=== PATIENT | female | born 1940 | race Caucasian/White ===

== ENCOUNTER 2015-12-26 09:46 | Outpatient (RCR) | payer MEDICARE ==
[~2015-12-26 09:46] MED LIST: ACDPT PO; BISO1TAB6 PO; CANA100T PO; CEFU250T PO; CHOL2000 PO; EZET10TA5 PO; GABA-488 PO; GLIM2TAB PO; LEVO50TA6 PO; MTF500T PO; OMEG-12 PO
--- OUTSIDE RECORDS SUMMARY | 2015-12-26 09:50 | XMS REPORT | Continuity of Care Document ---
Author Author [facility] Organization [facility] Address Unknown Phone Unavailable Care Team Providers Care Sheet Layer Name Role Phone KURTIS DIEGO MD PCP Insurance Providers Payer Name Policy Number Subscriber Name Relationship Wps Medicare [id number] Cameron Whitaker 18 Self / Same As Patient [facility] [id number] Cameron Whitaker 18 Self / Same As Patient Advance Directives Directive Response Recorded Date/Time Advance Directives No 07/19/15 8:10am Health Care Power of [employer] Platemaker No 07/19/15 8:10am Organ Donor No 07/19/15 8:10am Resuscitation Status Full Code 07/19/15 8:10am Problems Active Problems Medical Problem Onset Date Status Sharp headache Unknown Acute Urinary tract infection Unknown Acute Medications Current Home Medications Medication Dose Units Route Directions Days/Qty Instructions Start Date Metformin Hcl (Glucophage) 500 Mg 1 Each Oral Three Times A Day 28/02 Glimepiride 2 Mg 4 Mg Oral Daily 12/30/11 Griffin-3/Dha/Epa/Fish Oil 1 Each 2 Each Oral Week 12/30/11 Cholecalciferol 2,000 Unit 2,000 Unit Oral Weekly 12/30/11 Acetaminophen/Diphenhydramine 1 Ea 1 Ea Oral Bedtime 12/30/11 Canagliflozin 100 Mg 100 Mg Oral Daily 03/23/15 Gabapentin 300 Mg 300 Mg Oral Twice A Day 03/23/15 Levothyroxine Sodium 50 Mcg 50 Mcg Oral as needed for Dizziness 11/28 Cefuroxime Axetil 250 Mg 250 Mg Oral Twice A Day 10 03/23/15 Past Home Medications Medication Directions Ordered Status Ezetimibe 10 Mg Tablet, 10 Mg Oral Daily@0900 12/30/11 Discontinued Bisoprolol Fumarate/Hctz 1 Each Tablet, 1 Each Oral Daily 12/30/11 Discontinued Social History Social History Problem Response Recorded Date/Time Alcohol Use Denies Use 03/23/2015 12:25pm Recreational Drug Use No 03/23/2015 12:25pm Recent Foreign Travel No 07/19/2015 8:11am Hospital Discharge Instructions No hospital discharge instructions. Plan of Care Discharge Date 07/19/15 8:58am Instructions/Education Provided DR. BECK-POST EPIDURAL INST Prescriptions See Medication Section Functional Status No functional status results. Allergies, Adverse Reactions, Alerts No known allergies. Immunizations Name Given Type Date of Influenza Vaccine 02/12/15 Historical Vital Signs Acute Vital Signs Vital Response Date/Time Temperature (Fahrenheit) 95.9 degrees F (97.6 - 99.5) 07/19/2015 8:15am Temperature (Calculated Celsius) 35.55646 degrees C (36.4 - 37.5) 07/19/2015 8:15am Temperature Source Tympanic 07/19/2015 8:15am Pulse Rate (adult) 65 bpm (60 - 90) 07/19/2015 8:56am Respiratory Rate 14 bpm (12 - 24) 07/19/2015 8:56am O2 Sat by Pulse Oximetry 98 % (88 - 100) 07/19/2015 8:56am Blood Pressure 165/82 mm Hg 07/19/2015 8:56am Blood Pressure Mean 101 mm Hg 07/19/2015 8:15am Pain Pain Intensity 3 07/19/2015 8:56am Height (Feet) 5 feet 07/19/2015 8:11am Height (Inches) 3.00 inches 07/19/2015 8:11am Height (Calculated Centimeters) 160.039605 cm 07/19/2015 8:11am Weight (Pounds) 174 pounds 07/19/2015 8:11am Weight (Ounces) 0.0 oz 07/19/2015 8:11am Weight (Calculated Grams) 01207.073 gm 07/19/2015 8:11am Weight (Calculated Kilograms) 78.295894 kilograms 07/19/2015 8:11am Calculated BMI 30.8 07/19/2015 8:11am Results No known relevant diagnostic tests, laboratory data and/or discharge summary. Procedures No known history of procedures. Encounters Encounter Location Arrival/Admit Date Discharge/Depart Date Attending Provider Departed Clinic [facility] 07/19/15 7:43am 07/19/15 8: 58am LAITH BECK MD Departed Clinic [facility] 07/15/15 11:45am 07/15/15 1: 42pm LAITH BECK MD
== END 2016-03-25 | disposition home or self-care (01) ==
LOC: DSME 09:46
PROVIDERS: ATTEND Nurse Practitioner Family
DX: E11.9 Type 2 diabetes mellitus without complications (principal)

== ENCOUNTER → 2016-08-03 | Outpatient (CLI) | payer MEDICARE ==
[~2016-08-03] VITALS: Ht 160 cm; Wt 81.6 kg
[~2016-08-03] MED LIST changes: +BUPIVACAINE 0.25% 30 ML (SENSORCAINE) VIAL ONE; +TRIAMCINOLONE ACET (KENALOG-40) 40 MG/ML 1 ML VIAL ONE
[2016-08-03 14:28] VITALS: BP 151/105
[2016-08-03 15:13] VITALS: BP 162/83
--- NOTE | 2016-08-03 16:04 | Pain Medicine-Procedure ---
Procedure Pre-Op/Post-Op Diagnosis Diagnosis: disc disorder with radiculopathy, lumbar Indications for Operation Low back pain Attending Surgeon Debbi Procedure Date of Service: August 03, 2016 Procedure: Lumbar Epidural Steroid Injection at the L5-S1 level under Fluoroscopic Guidance Procedure: Patient was identified in the holding area. After risks, benefits, and alternatives were discussed with the patient, informed consent was obtained. Patient was brought to the fluoroscopy suite and placed prone on the procedure room table. A time out was performed. Vital signs were monitored throughout the procedure. The patients low back was prepped and draped in the usual sterile fashion. The patients skin was anesthetized using 2% Lidocaine. A Tuohy needle was inserted and advanced to the L5-S1 epidural space under fluoroscopic guidance using the loss of resistance technique and intermittent projection of fluoroscopy. There was no paresthesia with needle placement. The needle position was confirmed in both the AP and lateral view. After negative aspiration 2ml of contrast was injected under live fluoroscopy which showed good spread of the contrast in the epidural space at the appropriate level, there was no intravascular or subarachnoid spread. Again, after negative aspiration for heme or CSF, 2 ml of 0.25% Bupivicaine, 2ml of preservative free normal saline, and 80mg of Kenalog was injected. The needle was removed and a sterile bandage was placed and the patient was transferred to the recovery area in stable condition. After a brief period of observation, patient was discharged to home with no new neurological deficits and no apparent complications. Complications None LAITH BECK MD August 03, 2016 4:04 pm
== END ==
LOC: CARD 14:01
PROVIDERS: ATTEND Pain Medicine Pain Medicine
DX: M51.16 Intervertebral disc disorders with radiculopathy, lumbar region (principal); Z79.84 Long term (current) use of oral hypoglycemic drugs; Z79.899 Other long term (current) drug therapy
CPT/HCPCS: 62323

== ENCOUNTER → 2017-01-08 | Outpatient (CLI) | payer MEDICARE ==
[~2017-01-08] MED LIST changes: -BUPIVACAINE 0.25% 30 ML (SENSORCAINE) VIAL ONE; -TRIAMCINOLONE ACET (KENALOG-40) 40 MG/ML 1 ML VIAL ONE
== END ==
LOC: CARD 08:30
PROVIDERS: ATTEND Internal Medicine Cardiovascular Disease
DX: I35.0 Nonrheumatic aortic (valve) stenosis (principal); I65.23 Occlusion and stenosis of bilateral carotid arteries; N18.3 Chronic kidney disease, stage 3 (moderate); R06.09 Other forms of dyspnea; E13.9 Other specified diabetes mellitus without complications
CPT/HCPCS: 93306

== ENCOUNTER 2017-02-18 04:12 | Inpatient (IN) | payer MEDICARE ==
[~2017-02-18] VITALS: Ht 160 cm; Wt 81.4 kg
[2017-02-18] VITALS (13 sets, daily range): BP systolic 97–121; BP diastolic 54–94
--- OUTSIDE RECORDS SUMMARY | 2017-02-18 04:19 | XMS REPORT | Continuity of Care Document ---
Author Author [facility] Organization [facility] Address Unknown Phone Unavailable Allergies Active Description Code Type Severity Reaction Onset Reported/Identified Relationship to Patient Clinical Status Yes No Known Drug Allergies [id number] Drug Allergy Unknown N/ A 12/30/2011 Medications Problems Date Dx Coded Attending Type Code Diagnosis Diagnosed By 06/08/2014 Ot 785.2 06/15/2014 Ot 785.2 07/11/2014 JOHN LEMUS FACC, ALI FACP CCDS Ot 250.00 07/11/2014 JOHN LEMUS FACC, ALI FACP CCDS Ot 424.1 07/11/2014 JOHN LEMUS FACC, ALI FACP CCDS Ot 729.5 07/11/2014 JOHN LEMUS FACC, ALI FACP CCDS Ot 786.09 07/11/2014 JOHN ELMUS FACC, ALI FACP CCDS Ot 786.50 07/11/2014 JOHN LEMUS FACC, ALI FACP CCDS Ot V58.69 07/23/2014 JOHN LEMUS FACC, ALI FACP CCDS Ot 250.00 07/23/2014 JOHN LEMUS FACC, ALI FACP CCDS Ot 424.1 07/23/2014 JOHN LEMUS FACC, ALI FACP CCDS Ot 729.5 07/23/2014 JOHN LEMUS FACC, ALI FACP CCDS Ot 786.09 07/23/2014 JOHN LEMUS FACC, ALI FACP CCDS Ot 786.50 07/23/2014 JOHN LEMUS FACC, ALI FACP CCDS Ot V58.69 08/03/2014 JOHN LEMUS FACC, ALI FACP CCDS Ot 250.00 08/03/2014 JOHN LEMUS FACC, ALI FACP CCDS Ot 424.1 08/03/2014 JOHN LEMUS FACC, ALI FACP CCDS Ot 729.5 08/03/2014 JOHN LEMUS FACC, ALI FACP CCDS Ot 786.09 08/03/2014 JOHN MD FACC, ALI FACP CCDS Ot 786.59 08/21/2014 JOHN BAEZC, ALI FACP CCDS Ot 250.00 08/21/2014 JOHN LEMUS FACC, ALI FACP CCDS Ot 424.1 08/21/2014 JOHN LEMUS FACC, ALI FACP CCDS Ot 729.5 08/21/2014 JOHN LEMUS FACC, ALI FACP CCDS Ot 786.09 08/21/2014 JOHN LEMUS FACC, ALI FACP CCDS Ot 786.59 12/19/2014 GALE MENDEZ MD Ot 722.10 12/19/2014 GALE MENDEZ MD Ot 722.52 01/04/2015 LAITH BECK MD Ot M47.896 OTHER SPONDYLOSIS, LUMBAR REGION 01/04/2015 LAITH BECK MD Ot M51.26 OTHER INTERVERTEBRAL DISC DISPLACEMENT, 01/04/2015 LAITH BECK MD Ot Z79.899 OTHER SENIOR APPLICATIONS ENGINEER (CURRENT) DRUG THERAPY 01/09/2015 GALE MENDEZ MD Ot 722.10 01/09/2015 GALE MENDEZ MD Ot 722.52 03/23/2015 Ot V76.12 03/23/2015 Ot 715.91 03/23/2015 Ot 722.4 03/23/2015 Ot 250.00 03/23/2015 Ot 780.4 03/23/2015 Ot 780.8 03/23/2015 Ot V58.69 03/23/2015 Ot 729.5 03/23/2015 HENRY BAIG MD Ot V76.12 03/23/2015 Ot 785.2 03/23/2015 JOHN LEMUS FACC, ALI FACP CCDS Ot 250.00 03/23/2015 JOHN LEMUS FACC, ALI FACP CCDS Ot 424.1 03/23/2015 JOHN LEMUS FACC, ALI FACP CCDS Ot 729.5 03/23/2015 JOHN LEMUS FACC, ALI FACP CCDS Ot 786.09 03/23/2015 JOHN LEMUS FACC, ALI FACP CCDS Ot 786.59 03/23/2015 JOHN LEMUS FACC, ALI FACP CCDS Ot 250.00 03/23/2015 JOHN LEMUS FACC, ALI FACP CCDS Ot 424.1 03/23/2015 JOHN LEMUS FACC, DEMARIO FACP CCDS Ot 729.5 03/23/2015 JOHN LEMUS [facility], ALI FACP CCDS Ot 786.09 03/23/2015 JOHN LEMUS [facility], ALI FACP CCDS Ot 786.50 03/23/2015 JOHN LEMUS [facility], ALI FACP CCDS Ot V58.69 03/23/2015 GALE MENDEZ MD Ot 724.4 03/23/2015 GALE MENDEZ MD Ot 722.10 03/23/2015 GALE MENDEZ MD Ot 722.52 03/23/2015 ZORAIDA FORMAN TOPOGRAPHY TECHNICIAN Ot 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 03/23/2015 ZORAIDA FORMAN TOPOGRAPHY TECHNICIAN Ot N39.0 URINARY TRACT INFECTION, SITE NOT SPECIF 03/23/2015 ZORAIDA FORMAN TOPOGRAPHY TECHNICIAN Ot R11.0 NAUSEA 04/30/2015 JOHN LEMUS [facility], ALI FACP CCDS Ot I35.0 04/30/2015 JOHN LEMUS [facility], ALI FACP CCDS Ot I65.23 04/30/2015 JOHN LEMUS [facility], ALI FACP CCDS Ot R42 05/07/2015 JOHN LEMUS [facility], ALI FACP CCDS Ot I35.0 05/07/2015 JOHN LEMUS [facility], ALI FACP CCDS Ot I65.23 05/07/2015 JOHN LEMUS [facility], ALI FACP CCDS Ot R42 06/04/2015 EVERARDO LEMUS, THOMAS Carvalho Ot I65.23 06/18/2015 EVERARDO LEMUS, THOMAS Carvalho Ot I65.23 07/15/2015 Ot V76.12 OTH SCREEN MAMMO-MALIGN NEOPLASM OF JOSE 07/15/2015 Ot 715.91 OSTEOARTHROS NOS-SHLDER 07/15/2015 Ot 722.4 CERVICAL DISC DEGEN 07/15/2015 Ot 250.00 DIAB FAIZAN WO COMPL, TYPE II OR UNSPEC TY 07/15/2015 Ot 780.4 DIZZINESS AND GIDDINESS 07/15/2015 Ot 780.8 GENERALIZED HYPERHIDROSIS 07/15/2015 Ot V58.69 OTH MED,LT,CURRENT USE 07/15/2015 Ot 729.5 PAIN IN LIMB 07/15/2015 SAFIA LEMUS, HENRY Camarena Ot V76.12 OTH SCREEN MAMMO-MALIGN NEOPLASM OF JOSE 07/15/2015 Ot 785.2 CARDIAC MURMURS NEC 07/15/2015 JOHN LEMUS FACC, ALI FACP CCDS Ot 250.00 DIAB FAIZAN WO COMPL, TYPE II OR UNSPEC TY 07/15/2015 JOHN LEMUS FACC, ALI FACP CCDS Ot 424.1 AORTIC VALVE DISORDER 07/15/2015 JOHN LEMUS FACC, ALI FACP CCDS Ot 729.5 PAIN IN LIMB 07/15/2015 JOHN LEMUS FACC, ALI FACP CCDS Ot 786.09 RESPIRATORY ABNORM NEC 07/15/2015 JOHN BAEZC, ALI FACP CCDS Ot 786.59 CHEST PAIN NEC 07/15/2015 JOHN LEMUS FACC, ALI FACP CCDS Ot 250.00 DIAB FAIZAN WO COMPL, TYPE II OR UNSPEC TY 07/15/2015 JOHN LEMUS FACC, ALI FACP CCDS Ot 424.1 AORTIC VALVE DISORDER 07/15/2015 JOHN LEMUS FACC, ALI FACP CCDS Ot 729.5 PAIN IN LIMB 07/15/2015 JOHN LEMUS FACC, ALI FACP CCDS Ot 786.09 RESPIRATORY ABNORM NEC 07/15/2015 JOHN LEMUS FACC, ALI FACP CCDS Ot 786.50 CHEST PAIN NOS 07/15/2015 JOHN LEMUS FACC, ALI FACP CCDS Ot V58.69 OT MED,LT,CURRENT USE 07/15/2015 GALE MENDEZ MD Ot 724.4 LUMBOSACRAL NEURITIS NOS 07/15/2015 GALE MENDEZ MD Ot 722.10 LUMBAR DISC DISPLACEMENT 07/15/2015 GALE MENDEZ MD Ot 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 07/15/2015 JOHN LEMUS FACC ALI FACP CCDS Ot I35.0 NONRHEUMATIC AORTIC (VALVE) STENOSIS 07/15/2015 JOHN LEMUS FACC, ALI FACP CCDS Ot I65.23 OCCLUSION AND STENOSIS OF BILATERAL PATTERSON 07/15/2015 JOHN LEMUS FACC, ALI FACP CCDS Ot R42 DIZZINESS AND GIDDINESS 07/15/2015 THOMAS MCGEE MD Ot I65.23 OCCLUSION AND STENOSIS OF BILATERAL PATTERSON 07/15/2015 LAITH BECK MD Ot M51.16 INTERVERTEBRAL DISC DISORDERS W RADICULO 07/15/2015 LAITH BECK MD Ot Z53.8 PROCEDURE AND TREATMENT NOT CARRIED OUT 07/19/2015 LAITH BECK MD Ot M47.816 SPONDYLOSIS W/O MYELOPATHY OR RADICULOPA 07/19/2015 LAITH BECK MD Ot M51.16 INTERVERTEBRAL DISC DISORDERS W RADICULO 07/19/2015 LAITH BECK MD Ot Z79.899 OTHER SHELTER (CURRENT) DRUG THERAPY 07/29/2015 LAITH BECK MD, Ot M51.16 INTERVERTEBRAL DISC DISORDERS W RADICULO 07/29/2015 LAITH BECK MD Ot Z53.8 PROCEDURE AND TREATMENT NOT CARRIED OUT 08/08/2015 EVERARDO LEMUS, THOMAS Carvalho Ot I65.23 OCCLUSION AND STENOSIS OF BILATERAL PATTERSON 11/19/2015 BAIMA, VINEET L [employer]LTRY FARM LABORER Ot I35.0 NONRHEUMATIC AORTIC (VALVE) STENOSIS 11/20/2015 BAIMA, VINEET L P[employer]LTRY FARM LABORER Ot I35.0 NONRHEUMATIC AORTIC (VALVE) STENOSIS 11/20/2015 BAIMA, VINEET L [employer] FARM LABORER Ot I35.0 NONRHEUMATIC AORTIC (VALVE) STENOSIS 12/12/2015 BAIMA, VINEET L [employer] FARM LABORER Ot I35.0 NONRHEUMATIC AORTIC (VALVE) STENOSIS 12/19/2015 BAIMA, VINEET L [employer] FARM LABORER Ot I35.0 NONRHEUMATIC AORTIC (VALVE) STENOSIS 12/20/2015 Ot V76.12 OTH SCREEN MAMMO-MALIGN NEOPLASM OF JOSE 12/20/2015 Ot 715.91 OSTEOARTHROS NOS-SHLDER 12/20/2015 Ot 722.4 CERVICAL DISC DEGEN 12/20/2015 Ot 250.00 DIAB FAIZAN WO COMPL, TYPE II OR UNSPEC TY 12/20/2015 Ot 780.4 DIZZINESS AND GIDDINESS 12/20/2015 Ot 780.8 GENERALIZED HYPERHIDROSIS 12/20/2015 Ot V58.69 OTH MED,LT,CURRENT USE 12/20/2015 Ot 729.5 PAIN IN LIMB 12/20/2015 SAFIA LEMUS, HENRY Camarena Ot V76.12 OTH SCREEN MAMMO-MALIGN NEOPLASM OF JOSE 12/20/2015 Ot 785.2 CARDIAC MURMURS NEC 12/20/2015 JOHN LEMUS FACC, ALI FACP CCDS Ot 250.00 DIAB FAIZAN WO COMPL, TYPE II OR UNSPEC TY 12/20/2015 JOHN LEMUS FACC, ALI FACP CCDS Ot 424.1 AORTIC VALVE DISORDER 12/20/2015 JOHN LEMUS FACC, ALI FACP CCDS Ot 729.5 PAIN IN LIMB 12/20/2015 JOHN LEMUS FACC, ALI FACP CCDS Ot 786.09 RESPIRATORY ABNORM NEC 12/20/2015 JOHN LEMUS FACC, ALI FACP CCDS Ot 786.59 CHEST PAIN NEC 12/20/2015 JOHN LEMUS FACC, ALI FACP CCDS Ot 250.00 DIAB FAIZAN WO COMPL, TYPE II OR UNSPEC TY 12/20/2015 JOHN LEMUS FACC, ALI FACP CCDS Ot 424.1 AORTIC VALVE DISORDER 12/20/2015 JOHN LEMUS FACC, ALI FACP CCDS Ot 729.5 PAIN IN LIMB 12/20/2015 JOHN LEMUS FACC, ALI FACP CCDS Ot 786.09 RESPIRATORY ABNORM NEC 12/20/2015 JOHN LEMUS FACC, ALI FACP CCDS Ot 786.50 CHEST PAIN NOS 12/20/2015 DEMARIO LOPEZ MD, FACC FACP CCDS Ot V58.69 OT MED,LT,CURRENT USE 12/20/2015 GALE MENDEZ MD Ot 724.4 LUMBOSACRAL NEURITIS NOS 12/20/2015 GALE MENDEZ MD Ot 722.10 LUMBAR DISC DISPLACEMENT 12/20/2015 GALE MENDEZ MD Ot 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 12/20/2015 JOHN LEMUS FACC, DEMARIO FACP CCDS Ot I35.0 NONRHEUMATIC AORTIC (VALVE) STENOSIS 12/20/2015 JOHN LEMUS FACC, DEMARIO FACP CCDS Ot I65.23 OCCLUSION AND STENOSIS OF BILATERAL PATTERSON 12/20/2015 JOHN LEMUS FACC, ALI FACP CCDS Ot R42 DIZZINESS AND GIDDINESS 12/20/2015 EVERARDO LEMUS, THOMAS Carvalho Ot I65.23 OCCLUSION AND STENOSIS OF BILATERAL PATTERSON 12/20/2015 VINEET DASILVA P[employer] FARM LABORER Ot I35.0 NONRHEUMATIC AORTIC (VALVE) STENOSIS 12/23/2015 KIRAN LEMUS, LAITH Bae Ot M51.16 INTERVERTEBRAL DISC DISORDERS W RADICULO 12/26/2015 Ot V76.12 OTH SCREEN MAMMO-MALIGN NEOPLASM OF JOSE 12/26/2015 Ot 715.91 OSTEOARTHROS NOS-SHLDER 12/26/2015 Ot 722.4 CERVICAL DISC DEGEN 12/26/2015 Ot 250.00 DIAB FAIZAN WO COMPL, TYPE II OR UNSPEC TY 12/26/2015 Ot 780.4 DIZZINESS AND GIDDINESS 12/26/2015 Ot 780.8 GENERALIZED HYPERHIDROSIS 12/26/2015 Ot V58.69 OTH MED,LT,CURRENT USE 12/26/2015 Ot 729.5 PAIN IN LIMB 12/26/2015 SAFIA LEMUS, HENRY Camarena Ot V76.12 OTH SCREEN MAMMO-MALIGN NEOPLASM OF JOSE 12/26/2015 Ot 785.2 CARDIAC MURMURS NEC 12/26/2015 JOHN LEMUS FACC, ALI FACP CCDS Ot 250.00 DIAB FAIZAN WO COMPL, TYPE II OR UNSPEC TY 12/26/2015 JOHN LEMUS FACC, ALI FACP CCDS Ot 424.1 AORTIC VALVE DISORDER 12/26/2015 JOHN LEMUS FACC, ALI FACP CCDS Ot 729.5 PAIN IN LIMB 12/26/2015 JOHN LEMUS FACC, ALI FACP CCDS Ot 786.09 RESPIRATORY ABNORM NEC 12/26/2015 JOHN LEMUS FACC, ALI FACP CCDS Ot 786.59 CHEST PAIN NEC 12/26/2015 JOHN LEMUS FACC, ALI FACP CCDS Ot 250.00 DIAB FAIZAN WO COMPL, TYPE II OR UNSPEC TY 12/26/2015 JOHN LEMUS FACC, ALI FACP CCDS Ot 424.1 AORTIC VALVE DISORDER 12/26/2015 JOHN LEMUS FACC, ALI FACP CCDS Ot 729.5 PAIN IN LIMB 12/26/2015 JOHN LEMUS FACC, ALI FACP CCDS Ot 786.09 RESPIRATORY ABNORM NEC 12/26/2015 JOHN LEMUS FACC, ALI FACP CCDS Ot 786.50 CHEST PAIN NOS 12/26/2015 JOHN LEMUS FACC, ALI FACP CCDS Ot V58.69 OT MED,LT,CURRENT USE 12/26/2015 GALE MENDEZ MD Ot 724.4 LUMBOSACRAL NEURITIS NOS 12/26/2015 GALE MENDEZ MD Ot 722.10 LUMBAR DISC DISPLACEMENT 12/26/2015 GALE MENDEZ MD Ot 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 12/26/2015 JOHN LEMUS FACC, ALI FACP CCDS Ot I35.0 NONRHEUMATIC AORTIC (VALVE) STENOSIS 12/26/2015 JOHN LEMUS FACC, ALI FACP CCDS Ot I65.23 OCCLUSION AND STENOSIS OF BILATERAL PATTERSON 12/26/2015 JOHN LEMUS FACC, ALI FACP CCDS Ot R42 DIZZINESS AND GIDDINESS 12/26/2015 EVERARDO LEMUS, THOMAS Carvalho Ot I65.23 OCCLUSION AND STENOSIS OF BILATERAL PATTERSON 12/26/2015 VINEET DASILVA [employer] LABORER Ot I35.0 NONRHEUMATIC AORTIC (VALVE) STENOSIS 12/26/2015 KIRAN LEMUS, LAITH Bae Ot M51.16 INTERVERTEBRAL DISC DISORDERS W RADICULO 12/27/2015 OPAL BLUE TOPOGRAPHY TECHNICIAN Ot E11.9 TYPE 2 DIABETES MELLITUS WITHOUT COMPLIC 12/27/2015 Ot V76.12 OTH SCREEN MAMMO-MALIGN NEOPLASM OF JOSE 12/27/2015 Ot 715.91 OSTEOARTHROS NOS-SHLDER 12/27/2015 Ot 722.4 CERVICAL DISC DEGEN 12/27/2015 Ot 250.00 DIAB FAIZAN WO COMPL, TYPE II OR UNSPEC TY 12/27/2015 Ot 780.4 DIZZINESS AND GIDDINESS 12/27/2015 Ot 780.8 GENERALIZED HYPERHIDROSIS 12/27/2015 Ot V58.69 OTH MED,LT,CURRENT USE 12/27/2015 Ot 729.5 PAIN IN LIMB 12/27/2015 SAFIA LEMUS, HENRY Camarena Ot V76.12 OTH SCREEN MAMMO-MALIGN NEOPLASM OF JOSE 12/27/2015 Ot 785.2 CARDIAC MURMURS NEC 12/27/2015 JOHN LEMUS FACC, ALI FACP CCDS Ot 250.00 DIAB FAIZAN WO COMPL, TYPE II OR UNSPEC TY 12/27/2015 JOHN LEMUS FACC, ALI FACP CCDS Ot 424.1 AORTIC VALVE DISORDER 12/27/2015 JOHN LEMUS FACC, ALI FACP CCDS Ot 729.5 PAIN IN LIMB 12/27/2015 JOHN LEMUS FACC, ALI FACP CCDS Ot 786.09 RESPIRATORY ABNORM NEC 12/27/2015 JOHN LEMUS FACC, ALI FACP CCDS Ot 786.59 CHEST PAIN NEC 12/27/2015 JOHN LEMUS FACC, ALI FACP CCDS Ot 250.00 DIAB FAIZAN WO COMPL, TYPE II OR UNSPEC TY 12/27/2015 JOHN LEMUS FACC, ALI FACP CCDS Ot 424.1 AORTIC VALVE DISORDER 12/27/2015 JOHN LEMUS FACC, DEMARIO FACP CCDS Ot 729.5 PAIN IN LIMB 12/27/2015 JOHN LEMUS FACC, DEMARIO FACP CCDS Ot 786.09 RESPIRATORY ABNORM NEC 12/27/2015 JOHN LEMUS FACC, DEMARIO FACP CCDS Ot 786.50 CHEST PAIN NOS 12/27/2015 JOHN LEMUS FACC, DEMARIO FACP CCDS Ot V58.69 OT MED,LT,CURRENT USE 12/27/2015 GALE MENDEZ MD Ot 724.4 LUMBOSACRAL NEURITIS NOS 12/27/2015 GALE MENDEZ MD Ot 722.10 LUMBAR DISC DISPLACEMENT 12/27/2015 GALE MENDEZ MD Ot 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 12/27/2015 JOHN LEMUS FACC, DEMARIO FACP CCDS Ot I35.0 NONRHEUMATIC AORTIC (VALVE) STENOSIS 12/27/2015 JOHN LEMUS FACC, DEMARIO FACP CCDS Ot I65.23 OCCLUSION AND STENOSIS OF BILATERAL PATTERSON 12/27/2015 JOHN LEMUS FACC, DEMARIO FACP CCDS Ot R42 DIZZINESS AND GIDDINESS 12/27/2015 EVERARDO LEMUS, THOMAS Carvalho Ot I65.23 OCCLUSION AND STENOSIS OF BILATERAL PATTER[place] 12/27/2015 VINEET DASILVA [employer]ORER Ot I35.0 NONRHEUMATIC AORTIC (VALVE) STENOSIS 12/27/2015 OPAL BLUE APRN Ot E11.9 TYPE 2 DIABETES MELLITUS WITHOUT COMPLIC 12/27/2015 LAITH BECK MD Ot M51.16 INTERVERTEBRAL DISC DISORDERS W RADICULO 01/09/2016 LAITH BECK MD, Ot M47.816 SPONDYLOSIS W/O MYELOPATHY OR RADICULOPA 01/09/2016 LAITH BECK MD, Ot M51.16 INTERVERTEBRAL DISC DISORDERS W RADICULO 01/09/2016 LAITH BECK MD, Ot Z79.899 OTHER SHELTER (CURRENT) DRUG THERAPY 01/28/2016 LAITH BECK MD Ot M47.816 SPONDYLOSIS W/O MYELOPATHY OR RADICULOPA 01/28/2016 LAITH BECK MD, Ot M51.16 INTERVERTEBRAL DISC DISORDERS W RADICULO 01/28/2016 LAITH BECK MD, Ot Z79.899 OTHER SENIOR APPLICATIONS ENGINEER (CURRENT) DRUG THERAPY 02/04/2016 OPAL BLUE APRN Ot E11.9 TYPE 2 DIABETES MELLITUS WITHOUT COMPLIC 02/05/2016 LAITH BECK MD, Ot M47.816 SPONDYLOSIS W/O MYELOPATHY OR RADICULOPA 02/05/2016 LAITH BECK MD, Ot M51.16 INTERVERTEBRAL DISC DISORDERS W RADICULO 02/05/2016 LAITH BECK MD Ot Z79.899 OTHER SHELTER (CURRENT) DRUG THERAPY 03/18/2016 OPAL BLUE TOPOGRAPHY TECHNICIAN Ot E11.9 TYPE 2 DIABETES MELLITUS WITHOUT COMPLIC 03/25/2016 OPAL BLUE APRN Ot E11.9 TYPE 2 DIABETES MELLITUS WITHOUT COMPLIC 08/31/2016 LAITH BECK MD, Ot M51.16 INTERVERTEBRAL DISC DISORDERS W RADICULO 08/31/2016 LAITH BECK MD, Ot Z79.84 SENIOR APPLICATIONS ENGINEER (CURRENT) USE OF ORAL HYPOGLYC 08/31/2016 LAITH BECK MD Ot Z79.899 OTHER SENIOR APPLICATIONS ENGINEER (CURRENT) DRUG THERAPY 09/17/2016 LAITH BECK MD, Ot M51.16 INTERVERTEBRAL DISC DISORDERS W RADICULO 09/17/2016 LAITH BECK MD, Ot Z79.84 SHELTER (CURRENT) USE OF ORAL HYPOGLYC 09/17/2016 LAITH BECK MD Ot Z79.899 OTHER SENIOR APPLICATIONS ENGINEER (CURRENT) DRUG THERAPY 02/01/2017 DEMARIO LOPEZ MD, FACCP CCDS Ot E13.9 OTHER SPECIFIED DIABETES MELLITUS WITHOU 02/01/2017 DEMARIO LOPEZ MD, FACCP CCDS Ot I35.0 NONRHEUMATIC AORTIC (VALVE) STENOSIS 02/01/2017 DEMARIO LOPEZ MD, FACCP CCDS Ot I65.23 OCCLUSION AND STENOSIS OF BILATERAL PATTERSON 02/01/2017 DEMARIO LOPEZ MD, FACCP CCDS Ot N18.3 CHRONIC KIDNEY DISEASE, STAGE 3 ( MODERAT 02/01/2017 DEMARIO LOPEZ MD, FACCP CCDS Ot R06.09 OTHER FORMS OF DYSPNEA 02/02/2017 DEMARIO LOPEZ MD, FACCP CCDS Ot E13.9 OTHER SPECIFIED DIABETES MELLITUS WITHOU 02/02/2017 DEMARIO LOPEZ MD, FACCP CCDS Ot I35.0 NONRHEUMATIC AORTIC (VALVE) STENOSIS 02/02/2017 DEMARIO LOPEZ MD, FACCP CCDS Ot I65.23 OCCLUSION AND STENOSIS OF BILATERAL PATTERSON 02/02/2017 JOHN LEMUS FACC, DEMARIO FACP CCDS Ot N18.3 CHRONIC KIDNEY DISEASE, STAGE 3 ( MODERAT 02/02/2017 JOHN LEMUS FACC, DEMARIO FACP CCDS Ot R06.09 OTHER FORMS OF DYSPNEA Procedures Results Encounters ACCT No. Visit Date/Time Discharge Status Pt. Type Provider Facility Loc./Unit Complaint [id number] 01/12/2017 07:28:00 2016 23:59:59 CLS Outpatient DEMARIO LOPEZ MD, FACC FACP CCDS [facility] CARD I35.0 [id number] 01/08/2017 08:30:00 2016 23:59:59 CLS Outpatient DEMARIO LOPEZ MD, FACC FACP CCDS [facility] CARD I35.0 [id number] 08/03/2016 14:01:00 2016 23:59:59 CLS Outpatient LAITH BECK MD [facility] CARD DISC DISORDER [id number] 03/26/2016 10:00:00 2016 23:59:59 CLS Preadmit OPAL BLUE APRN [facility] TYPE 2 DIABETES, UNCONTROLLED DIABETES [id number] 12/26/2015 09:46:00 2016 00:01:00 DIS Outpatient OPAL BLUE APRN [facility] TYPE 2 DIABETES, UNCONTROLLED DIABETES [id number] 12/20/2015 07:57:00 2015 23:59:59 CLS Outpatient LAITH BECK MD [facility] CARD DISC DISORDER [id number] 11/19/2015 08:55:00 2015 23:59:59 CLS Outpatient VINEET DASILVA [facility] CARD [id number] 08/09/2015 10:15:00 2015 23:59:59 CLS Preadmit THOMAS MCGEE MD [facility] CARD DIZZINESS, VISUAL CHANGES SEVERE HEADACHES [id number] 06/03/2015 09:05:00 2015 00:01:00 DIS Outpatient THOMAS MCGEE MD [facility] CARD DIZZINESS, VISUAL CHANGES SEVERE HEADACHES [id number] 07/19/2015 07:43:00 2015 08:58:00 DIS Outpatient LAITH BECK MD [facility] CARD DISC DISORDER [id number] 07/15/2015 11:45:00 2015 13:42:00 DIS Outpatient LAITH BECK MD [facility] CARD DISC DISORDER W/RADICULOPATHY [id number] 04/01/2015 13:41:00 2015 23:59:59 CLS Outpatient DEMARIO LOPEZ MD, FACC, FACP CCDS [facility] CARD VERITGO [id number] 03/23/2015 12:22:00 2015 15:00:00 DIS Emergency ZORAIDA FORMAN APRN [facility] ER DIZZINESS/NAUSEA [id number] 01/04/2015 09:15:00 2014 10:15:00 DIS Outpatient LAITH BECK MD [facility] CARD OTHER INTERVETREBRAL DISC DISPLACEMENT [id number] 11/26/2014 07:35:00 2014 23:59:59 CLS Outpatient GALE MENDEZ MD [facility] RAD RADICULOPATHY [id number] 11/15/2014 09:11:00 2014 23:59:59 CLS Outpatient GALE MENDEZ MD [facility] RAD RADICULOPATHY [id number] 06/13/2014 08:56:00 2014 23:59:59 CLS Outpatient DEMARIO LOPEZ MD, FACC, FACP CCDS [facility] RAD BILAT LEG FOOT PAIN, DIABETES [id number] 06/12/2014 08:18:00 2014 23:59:59 CLS Outpatient DEMARIO LOPEZ MD, FACC, FACP CCDS [facility] CARD CHEST DISCOMFORT, AORTIC STENOSIS [id number] 11/06/2013 09:23:00 2013 23:59:59 CLS Outpatient HENRY BAIG MD [facility] RAD SCREENING [id number] 06/08/2014 17:37:00 Document Registration [id number] 04/04/2012 15:58:00 Document Registration [id number] 12/30/2011 06:47:00 Document Registration [id number] 08/17/2011 12:51:00 Document Registration [id number] 08/07/2010 12:49:00 Document Registration
[2017-02-18] MEDS ORDERED: ONDANSETRON 4 MG/2 ML (SDV) Z0FRAN ONE ×2 (04:22→04:25)
[2017-02-18] MEDS ORDERED: RT-ALBUTEROL/IPRATROPIUM 3 ML (DUONEB) VIAL ONE (04:27)
[2017-02-18 04:30] LABS: BASOPHILS # (AUTO) 0.1 10^3/uL (0.0-0.1); BASOPHILS % (AUTO) 1 % (0-10); EOSINOPHILS # (AUTO) 0.1 10^3/uL (0.0-0.3); EOSINOPHILS % (AUTO) 1 % (0-10); LYMPHOCYTES # (AUTO) 4.9 X 10^3 (1.0-4.0); LYMPHOCYTES % (AUTO) 40 % (12-44); MEAN CORPUSCULAR HEMOGLOBIN 29 PG (25-34); MEAN CORPUSCULAR HGB CONC 32 G/DL (32-36); MEAN CORPUSCULAR VOLUME 90 FL (80-99); MEAN PLATELET VOLUME 10.5 FL (7.4-10.4); MONOCYTES # (AUTO) 0.4 X 10^3 (0.0-1.0); MONOCYTES % (AUTO) 3 % (0-12); NEUTROPHILS # (AUTO) 6.7 X 10^3 (1.8-7.8); NEUTROPHILS % (AUTO) 55 % (42-75); PLATELET COUNT 500 10^3/uL (130-400); RED BLOOD COUNT 4.39 10^6/uL (4.35-5.85); RED CELL DISTRIBUTION WIDTH 14.2 % (10.0-14.5); WHITE BLOOD COUNT 12.1 10^3/uL (4.3-11.0)
[2017-02-18 04:40] LABS: PROTHROMBIN TIME PATIENT 12.8 SEC (12.2-14.7)
[2017-02-18 04:48] LABS: ABG BASE EXCESS -7.8 MMOL/L (-2.5-2.5); ABG HCO3 19 MMOL/L (23-27); ABG OXYGEN SATURATION 100 % (94-100); ABG PCO2 44 MMHG (35-45); ABG PO2 266 MMHG (79-93); ABG TCO2 20.1 MMOL/L (21.0-31.0); ALLENS TEST YES-POS; PATIENT TEMP 95.5
[2017-02-18 04:49] LABS: ABG PH 7.24 (7.37-7.43)
[2017-02-18] MEDS ORDERED: FUROSEMIDE 40 MG/4 ML INJ (LASIX) IVP ONE (05:00)
[2017-02-18 05:06] LABS: ALANINE AMINOTRANSFERASE 57 U/L (0-55); ALBUMIN 4.1 GM/DL (3.2-4.5); ANION GAP 16 MMOL/L (5-14); ASPARTATE AMINO TRANSFERASE 40 U/L (5-34); BILIRUBIN,TOTAL 0.4 MG/DL (0.1-1.0); BLOOD UREA NITROGEN 23 MG/DL (7-18); BUN/CREATININE RATIO 18; CALCIUM 8.8 MG/DL (8.5-10.1); CARBON DIOXIDE 19 MMOL/L (21-32); CHLORIDE 101 MMOL/L (98-107); CREATININE SERUM 1.28 MG/DL (0.60-1.30); GFR ESTIMATED 41; GLUCOSE 388 MG/DL (70-105); MAGNESIUM 2.2 MG/DL (1.8-2.4); POTASSIUM 3.6 MMOL/L (3.6-5.0); SODIUM 136 MMOL/L (135-145); TOTAL PROTEIN 6.7 GM/DL (6.4-8.2)
[2017-02-18] MEDS ORDERED: KETOROLAC 30 MG/ML VIAL IVP ONE (05:15)
[2017-02-18 05:16] LABS: MYOGLOBIN SERUM 53.3 NG/ML (10.0-92.0)
[2017-02-18 05:39] LABS: THYROID STIMULATING HORMONE 2.54 UIU/ML (0.35-4.94)
[2017-02-18 05:40] LABS: BILIRUBIN,URINE NEGATIVE (NEGATIVE); KETONES,URINE NEGATIVE (NEGATIVE); LEUKOCYTE ESTERASE ,URINE NEGATIVE (NEGATIVE); NITRITE,URINE POSITIVE (NEGATIVE); PH,URINE 5 (5-9); PROTEIN,URINE 3+ (NEGATIVE); UROBILINOGEN,URINE NORMAL (NORMAL)
--- NOTE | 2017-02-18 05:51 | ED Chest Pain ---
General Chief Complaint: Respiratory Problems Stated Complaint: SOB,CP Nursing Triage Note: pt to er per ems. ems reports she c/o soa et chest/back pain. she has been worsening en route, unable to speak at this time. she is diaphoretic et very restless. she had an abnormal ekg done by dr owens on 02/17/17 et has a heart cath scheduled for next week. Nursing Sepsis Screen: Possible Sepsis Risk Source: patient Exam Limitations: no limitations History of Present Illness Time seen by provider: 04:14 Initial Comments This 76-year-old woman presents to the emergency room in respiratory distress via EMS. Patient reported chest pressure, dyspnea, and back pain. EMS reports she became progressively short of air and diaphoretic. She was becoming less a verbal in route as well. Fingerstick blood sugar was 267. Patient was seen in Dr. Owens's clinic yesterday. She reports an abnormal EKG that prompted the scheduling of a cardiac catheterization procedure for February 23. Review of patient's chart notes a stress test performed January 12 demonstrating an ejection fraction of 39 percent as well as suggestion of hannah-apical myocardial infarction with minimal chris-infarct ischemia. Patient is responsive on arrival but is lethargic. She is diaphoretic and cool. Family reports she has had some mild cough and shortness of air recently but no fever. Patient has also developed nausea and vomiting. Allergies and Home Medications Allergies Coded Allergies: No Known Drug Allergies (Unverified , 12/30/11) Home Medications Acetaminophen/Diphenhydramine 1 Ea Tab, 1 EA PO HS, (Reported) Canagliflozin 100 Mg Tablet, 100 MG PO DAILY, (Reported) Cefuroxime Axetil 250 Mg Tablet, 250 MG PO BID, #10 Prescribed by: ZORAIDA FORMAN on 03/23/15 1431 Cholecalciferol 2,000 Unit Capsule, 2,000 UNIT PO weekly, (Reported) Gabapentin 300 Mg Capsule, 300 MG PO BID, (Reported) Glimepiride 2 Mg Tablet, 4 MG PO DAILY, (Reported) Levothyroxine Sodium 50 Mcg Tablet, 50 MCG PO for DIZZINESS, (Reported) Metformin Hcl 500 Mg Tablet, 1 EACH PO TID, (Reported) [place]-3/Dha/Epa/Fish Oil 1 Each Capsule.dr, 2 EACH PO week, (Reported) Review of Systems Constitutional: see HPI, diaphoresis EENTM: No Symptoms Reported Respiratory: See HPI, Cough, Shortness of Air Cardiovascular: See HPI Gastrointestinal: See HPI Genitourinary: No Symptoms Reported Musculoskeletal: no symptoms reported Skin: no symptoms reported Psychiatric/Neurological: See HPI Endocrine: No Symptoms Reported Hematologic/Lymphatic: No Symptoms Reported Past Bprdgnl-Mifwxv-Yeoacu Hx Patient Social History Alcohol Use: Denies Use Recreational Drug Use: No Smoking Status: Never a Smoker Recent Foreign Travel: No Contact w/Someone Who Travel: No Recent Infectious Disease Expo: No Recent Hopitalizations: No Immunizations Up To Date Date of Influenza Vaccine: Feb 12, 2015 Surgeries History of Surgeries: Yes (KNEES, carpal tunnel) Surgeries: Hysterectomy, Orthopedic, Tonsillectomy Respiratory History of Respiratory Disorde: No Cardiovascular History of Cardiac Disorders: Yes (aortic stenosis, carotid stenosis) Cardiac Disorders: Coronary Artery Disease (abnormal stress test), Peripheral Vascular, Valvular Heart Disease Neurological History of Neurological Disord: No Reproductive System : No Genitourinary History of Genitourinary Disor: No Gastrointestinal History of Gastrointestinal Di: No Musculoskeletal History of Musculoskeletal Dis: No Endocrine History of Endocrine Disorders: Yes Endocrine Disorders: Diabetes, Non-Insulin dep HEENT History of HEENT Disorders: No Cancer History of Cancer: No Psychosocial History of Psychiatric Problem: Yes Behavioral Health Disorders: Anxiety, Depression Integumentary History of Skin or Integumenta: No Physical Exam Vital Signs Vital Sign - Last 12Hours 02/18/17 04:12 Temp 95.5 Pulse 138 Resp 36 B/P (MAP) 131/84 (100) Pulse Ox 92 O2 Delivery Nasal Cannula O2 Flow Rate 5.00 Capillary Refill : Less Than 3 Seconds General Appearance: WD/WN, Severe Distress HEENT: PERRL/EOMI, Normal ENT Inspection, Pharynx Normal Neck: Normal Inspection Respiratory: Decreased Breath Sounds, Rhonci, Other (lungs sounds are wet throughout with diminished air movement.) Cardiovascular: No Edema, No Murmur, Tachycardia Gastrointestinal: Non Tender, Soft Extremity: Normal Inspection, No Pedal Edema Neurologic/Psychiatric: Alert, Oriented x3, No Motor/Sensory Deficits, Normal Mood/Affect, pattern technician II-XII Norm as Tested Skin: Normal Color, Diaphoresis Focused Exam Evaluation Lactate Level Laboratory Tests 02/18/17 04:30: Lactic Acid Level 4.01*H Lactic Acid Level Laboratory Tests Test 02/18/17 04:30 Lactic Acid Level 4.01 MMOL/L (0.50-2.00) *H Critical Care Note Critical Care Start Time: 04:14 Stop Time: 04:54 Progress Patient was immediately given supportive measures including BiPAP, DuoNeb therapy, and oxygen. Chest x-ray revealed pulmonary edema. BiPAP was initiated and patient had rapid improvement. A Escobedo catheter was placed on Lasix 40 mg was administered. Patient was stabilized and prepared for admission to the ICU. Progress/Results/Core Measures Results/Orders Lab Results Laboratory Tests Test 02/18/17 00:00 02/18/17 04:23 02/18/17 04:30 02/18/17 05:32 Range/Units Blood Gas Puncture Site L RAD Blood Gas Patient Temperature 95.5 Arterial Blood pH 7.24 *L 7.37-7.43 Arterial Blood Partial Pressure CO2 44 35-45 MMHG Arterial Blood Partial Pressure O2 266 H 79-93 MMHG Arterial Blood HCO3 19 L 23-27 MMOL/L Arterial Blood Total CO2 20.1 L 21.0-31.0 MMOL/L Arterial Blood Oxygen Saturation 100 94-100 % Arterial Blood Base Excess -7.8 L -2.5-2.5 MMOL/L Sal Test YES-POS Blood Gas Ventilator Setting NO Blood Gas Inspired Oxygen 80% White Blood Count 12.1 H 4.3-11.0 10^3/uL Red Blood Count 4.39 4.35-5.85 10^6/uL Hemoglobin 12.6 11.5-16.0 G/DL Hematocrit 39 35-52 % Mean Corpuscular Volume 90 80-99 FL Mean Corpuscular Hemoglobin 29 25-34 PG Mean Corpuscular Hemoglobin Concent 32 32-36 G/DL Red Cell Distribution Width 14.2 10.0-14.5 % Platelet Count 500 H 130-400 10^3/uL Mean Platelet Volume 10.5 H 7.4-10.4 FL Neutrophils (%) (Auto) 55 42-75 % Lymphocytes (%) (Auto) 40 12-44 % Monocytes (%) (Auto) 3 0-12 % Eosinophils (%) (Auto) 1 0-10 % Basophils (%) (Auto) 1 0-10 % Neutrophils # (Auto) 6.7 1.8-7.8 X 10^3 Lymphocytes # (Auto) 4.9 H 1.0-4.0 X 10^3 Monocytes # (Auto) 0.4 0.0-1.0 X 10^3 Eosinophils # (Auto) 0.1 0.0-0.3 10^3/uL Basophils # (Auto) 0.1 0.0-0.1 10^3/uL Prothrombin Time 12.8 12.2-14.7 SEC INR Comment 1.0 0.8-1.4 Activated Partial Thromboplast Time 30 24-35 SEC Sodium Level 136 135-145 MMOL/L Potassium Level 3.6 3.6-5.0 MMOL/L Chloride Level 101 98-107 MMOL/L Carbon Dioxide Level 19 L 21-32 MMOL/L Anion Gap 16 H 5-14 MMOL/L Blood Urea Nitrogen 23 H 7-18 MG/DL Creatinine 1.28 0.60-1.30 MG/DL Estimat Glomerular Filtration Rate 41 BUN/Creatinine Ratio 18 Glucose Level 388 H 70-105 MG/DL Calcium Level 8.8 8.5-10.1 MG/DL Magnesium Level 2.2 1.8-2.4 MG/DL Total Bilirubin 0.4 0.1-1.0 MG/DL Aspartate Amino Transf (AST/SGOT) 40 H 5-34 U/L Alanine Aminotransferase (ALT/SGPT) 57 H 0-55 U/L Alkaline Phosphatase 78 40-136 U/L Myoglobin 53.3 10.0-92.0 NG/ML Troponin I < 0.30 <0.30 NG/ML C-Reactive Protein High Sensitivity 0.25 0.00-0.50 MG/DL B-Type Natriuretic Peptide 2963.7 H <100.0 PG/ML Total Protein 6.7 6.4-8.2 GM/DL Albumin 4.1 3.2-4.5 GM/DL Lactic Acid Level 4.01 *H 0.50-2.00 MMOL/L Thyroid Stimulating Hormone (TSH) 2.54 0.35-4.94 UIU/ML Free Thyroxine 1.06 0.70-1.48 NG/DL Urine Color YELLOW Urine Clarity CLOUDY H Urine pH 5 5-9 Urine Specific [place] 1.020 1.016-1.022 Urine Protein 3+ H NEGATIVE Urine Glucose (UA) 3+ H NEGATIVE Urine Ketones NEGATIVE NEGATIVE Urine Nitrite POSITIVE H NEGATIVE Urine Bilirubin NEGATIVE NEGATIVE Urine Urobilinogen NORMAL NORMAL MG/DL Urine Leukocyte Esterase NEGATIVE NEGATIVE Urine RBC (Auto) NEGATIVE NEGATIVE Urine RBC NONE /HPF Urine WBC RARE /HPF Urine Squamous Epithelial Cells NONE /HPF Urine Crystals NONE /LPF Urine Bacteria LARGE H /HPF Urine Casts PRESENT /LPF Urine Hyaline Casts 0-2 H /LPF Urine Mucus NEGATIVE /LPF Urine Culture Indicated YES My Orders Orders - JHOAN KULKARNI MD Cbc With Automated Diff (02/18/17 04:21) Magnesium (02/18/17 04:21) Chest 1 View, Ap/Pa Only (02/18/17 04:21) Ekg Tracing (02/18/17 04:21) Cardiac Profile 1 (02/18/17 04:21) Comprehensive Metabolic Panel (02/18/17 04:21) Myoglobin Serum (02/18/17 04:21) Protime With Inr (02/18/17 04:21) Partial Thromboplastin Time (02/18/17 04:21) O2 (02/18/17 04:21) Monitor-Rhythm Ecg Trace Only (02/18/17 04:21) Lipid Panel (02/19/17 06:00) Saline Lock/Iv-Start (02/18/17 04:21) BNP (02/18/17 04:21) Hs C Reactive Protein (02/18/17 04:21) Blood Culture (02/18/17 04:21) Lactic Acid Analyzer (02/18/17 04:21) Bipap Rt-Rfs (02/18/17 04:21) Arterial Blood Gas (02/18/17 04:21) Ondansetron Injection (Zofran Injectio (02/18/17 04:22) Ondansetron Injection (Zofran Injectio (02/18/17 04:25) Albuterol/Ipra Inhalation Soln (Duoneb I (02/18/17 04:27) Thyroid Stimulating Hormone (02/18/17 04:53) Free T4 (Free Thyroxine) (02/18/17 04:53) Furosemide Injection (Lasix Injection) (02/18/17 05:00) Escobedo Cath Insertion (02/18/17 04:55) Ketorolac Injection (Toradol Injection) (02/18/17 05:15) Ua Culture If Indicated (02/18/17 05:24) Medications Given in ED Current Medications Medications Dose Ordered Sig/Jose Enrique Route Start Time Stop Time Status Last Admin Dose Admin Albuterol/ Ipratropium 3 ml STK-MED ONCE .ROUTE 02/18/17 04:27 02/18/17 04:29 DC 02/18/17 04:30 3 ML Furosemide 40 mg ONCE ONCE IVP 02/18/17 05:00 02/18/17 05:01 DC 02/18/17 05:23 40 MG Ketorolac Tromethamine 15 mg ONCE ONCE IVP 02/18/17 05:15 02/18/17 05:16 DC 02/18/17 05:19 15 MG Ondansetron HCl 4 mg STK-MED ONCE .ROUTE 02/18/17 04:22 02/18/17 04:24 DC 02/18/17 04:23 4 MG Ondansetron HCl 4 mg STK-MED ONCE .ROUTE 02/18/17 04:25 02/18/17 04:27 DC 02/18/17 04:23 4 MG Vital Signs/I&O Vital Sign - Last 12Hours 02/18/17 02/18/17 02/18/17 04:12 04:12 04:30 Temp 95.5 Pulse 138 105 Resp 36 27 B/P (MAP) 131/84 (100) Pulse Ox 92 92 100 O2 Delivery Nasal Cannula Nasal Cannula O2 Flow Rate 5.00 80.00 Blood Pressure Mean: 100 Progress Note : Time: 06:12 Progress Note Urinary tract infection was identified by UA. Rocephin has been ordered. ECG Initial ECG Impression Date: Feb 18, 2017 Initial ECG Impression Time: 04:29 Initial ECG Rate: 108 Initial ECG Rhythm: S.Tach Initial ECG Intervals Prolonged QT interval Comment Sinus tachycardia with no ST elevation or depression. Prolonged QT interval. Diagnostic Imaging Diagonstic Imaging: Xray Plain Films/CT/US/NM/MRI: chest Comments Chest x-ray viewed by me. Report not yet available. There is moderate amount of congestion with pulmonary edema. Departure Communication (Admissions) Time/Spoke to Admitting Phy: 05:30 Impression Impression: Primary Impression: Acute congestive heart failure Qualified Codes: I50.9 - Heart failure, unspecified Additional Impressions: Chest pain Qualified Codes: R07.9 - Chest pain, unspecified Respiratory distress Urinary tract infection Qualified Codes: N39.0 - Urinary tract infection, site not specified Disposition: ADMITTED INPATIENT Condition: Improved Admissions Decision to Admit Reason: Admit from ER (General) Decision to Admit/Date: Feb 18, 2017 Time/Decision to Admit Time: 04:15 Departure-Patient Inst. Referrals: KURTIS DIEGO MD (PCP/Family) Primary Care Physician JHOAN KULKARNI MD Feb 18, 2017 05:51
[2017-02-18 05:53] LABS: WBC,URINE RARE /HPF
[2017-02-18 05:54] LABS: HYALINE CASTS, URINE 0-2 /LPF
[2017-02-18] MEDS ORDERED: cefTRIAXone INJECTION 1,000 MG in NS (IVPB) 50 ML IV ONE (06:15)
[2017-02-18] MEDS ORDERED: GABA600T2 PO (06:18)
[2017-02-18] MEDS ORDERED: ESCI5TAB12 PO ×2 (06:18→09:54)
[2017-02-18] MEDS ORDERED: INSU100V6 SQ (06:18)
--- NOTE | 2017-02-18 06:26 | Diagnostic Imaging Report ---
EXAM: CHEST 1 VIEW, AP/PA ONLY INDICATION: Respiratory distress. COMPARISON: Chest radiograph 08/17/2011. FINDINGS: Increasing interstitial opacities throughout both lungs with a perihilar predominance. Small bilateral pleural effusions, greater on the right are new. Cardiomegaly. No pneumothorax. No acute osseous findings. IMPRESSION: New cardiomegaly and increasing interstitial opacities suspicious for pulmonary interstitial edema. Dictated by: Dictated on workstation # [id number]
[2017-02-18] MEDS ORDERED: ASPIRIN E.C. 325 MG (ECOTRIN) TABLET PO SCH (07:00)
[2017-02-18] MEDS ORDERED: ONDANSETRON 4 MG/2 ML (SDV) Z0FRAN IVP PRN (07:00)
[2017-02-18 07:38] LABS: CHOLESTEROL 211 MG/DL (< 200); DIRECT LDL 141 MG/DL (1-129); TRIGLYCERIDES 195 MG/DL (<150); VLDL CHOLESTEROL 39 MG/DL (5-40)
--- NOTE | 2017-02-18 08:17 | Consultation-Cardiology ---
HPI-Cardiology Cardiology Consultation: Date of Consultation 02/18/17 Time Seen by Provider: 08:45 Date of Admission 02-18-17 Attending Physician Mila Nicole MD Admitting Physician Mila Nicole MD Consulting Physician Nathanael Owens MD HPI: Chief Complaint: Dyspnea Ms. Momin is a 76 year old female admitted to ICU 12 from the ED earlier this morning. She reports she woke up last night with increasing shortness of breath , chest heaviness, pain in between her shoulder blades, and a feeling of a rapid heart beat. She reports orthopnea. She states her was able to summon 911. She states she felt diaphoretic. She reports emesis in the ambulance on the way to the hospital. She states she continues to feel short of breath, but feels it has improved. She denies any lower extremity edema. She reports the heaviness in her chest and pain in between her shoulder blades has also improved. No c/o fever or chills. Review of Systems-Cardiology Review of Systems Constitutional: As described under HPI, malaise Eyes: No vision change Ears/Nose/Throat: No epistaxis Respiratory: As described under HPI Cardiovascular: As described under HPI Gastrointestinal: nausea, vomiting Genitourinary: No dysuria, No hematuria Musculoskeletal: no symptoms reported Skin: No rash, No ulcerations Psychiatric/Neurological: No focal weakness, No syncope Hematologic: No bleeding abnormalities YHL-Krvayf-Sjpusf Hx Patient Social History Alcohol Use: Denies Use Recreational Drug Use: No Smoking Status: Never a Smoker Recent Foreign Travel: No Recent Infectious Disease Expo: No Immunizations Up To Date Date of Influenza Vaccine: Feb 12, 2015 Past Medical History PMH As described under Assessment. Allergies and Home Medications Allergies Coded Allergies: canagliflozin (Verified Allergy, Severe, LIGHT HEADED/HEADACHES/UTI/FELT LIKE SHE WOULD PASS OUT, 02/18/17) liraglutide (Verified Allergy, Severe, RAPID HEART RATE/HEADACHE/DIZZINESS , 02/18/17) Zffhipv-Cez-Vdv Reductase Inhibitor (Verified Adverse Reaction, Severe, MUSCLE PAIN, 02/18/17) Home Medications Acetaminophen/Diphenhydramine 1 Each Tablet, 1 TAB PO HS, (Reported) Aspirin 81 Mg Tab.chew, 81 MG PO DAILY, (Reported) Bisoprolol Fumarate/Hctz 1 Each Tablet, 1 TAB PO DAILY, (Reported) Cholecalciferol (Vitamin D3) 2,000 Unit Capsule, 2,000 UNIT PO DAILY, (Reported) Escitalopram Oxalate 5 Mg Tablet, 5 MG PO DAILY, (Reported) Gabapentin 600 Mg Tablet, 600 MG PO TID, (Reported) Insulin Glargine,Hum.rec.anlog 100 Unit/1 Ml Insuln.pen, 10 UNIT SQ DAILY, ( Reported) Levothyroxine Sodium 50 Mcg Tablet, 50 MCG PO DAILY, (Reported) Metformin HCl 500 Mg Tablet, 500 MG PO TIDWM, (Reported) [place] 3 Polyunsat Fatty Acids 1,000 Mg Cap, 1,000 MG PO DAILY, (Reported) Physical Exam-Cardiology Physical Exam Vital Signs/I&O Vital Sign - Last 12Hours 02/18/17 02/18/17 02/18/17 02/18/17 04:12 04:12 04:30 06:35 Temp 95.5 Pulse 138 105 Resp 36 27 B/P (MAP) 131/84 (100) Pulse Ox 92 92 100 94 O2 Delivery Nasal Cannula Nasal Cannula Nasal Cannula O2 Flow Rate 5.00 80.00 3.00 02/18/17 02/18/17 02/18/17 02/18/17 06:35 06:40 06:40 07:00 Temp 97.8 Pulse 87 81 81 86 Resp 18 20 25 B/P (MAP) 121/94 (103) 104/76 Pulse Ox 94 96 O2 Delivery Nasal Cannula Room Air O2 Flow Rate 3.00 02/18/17 02/18/17 02/18/17 02/18/17 07:00 08:00 08:00 09:00 Pulse 86 85 85 Resp 18 20 16 B/P (MAP) 112/74 (87) 110/80 (90) 117/68 (84) Pulse Ox 94 98 97 O2 Delivery Nasal Cannula Nasal Cannula Nasal Cannula Nasal Cannula O2 Flow Rate 3.00 3.00 3.00 3.00 02/18/17 02/18/17 02/18/17 02/18/17 09:00 09:03 10:00 10:30 Temp 97.5 Pulse 79 78 Resp 24 B/P (MAP) 115/54 (74) Pulse Ox 96 94 O2 Delivery Nasal Cannula Nasal Cannula O2 Flow Rate 3.00 3.00 Capillary Refill : Less Than 3 Seconds Constitutional: appears stated age, AAO x 3, well-nourished HEENT: PERRL, hearing is well preserved, oral hygience is good, No xanthelasmas are seen Neck: No carotid bruit, carotid pulses are 2 + bilaterally Respiratory: No accessory muscle use, No respiratory distress, chest expansion is symmetric, chest is bilaterally symmetric, other (diminished bases bilat) Cardiovascular: regular rate-rhythm, No JVD, S1 and S2, systolic murmur (2-3 MSM) Gastrointestinal: No tender, soft, audible bowel sounds Rectal: deferred Extremities: no lower extremity edema bilateral Neurologic/Psychiatric: grossly intact Skin: No rash, No ulcerations Data Review Labs Laboratory Tests 02/18/17 00:00: Blood Gas Puncture Site L RAD, Blood Gas Patient Temperature 95.5, Arterial Blood pH 7.24*L, Arterial Blood Partial Pressure CO2 44, Arterial Blood Partial Pressure O2 266H, Arterial Blood HCO3 19L, Arterial Blood Total CO2 20.1L, Arterial Blood Oxygen Saturation 100, Arterial Blood Base Excess -7.8L, Sal Test YES-POS, Blood Gas Ventilator Setting NO, Blood Gas Inspired Oxygen 80% 02/18/17 04:23: White Blood Count 12.1H, Red Blood Count 4.39, Hemoglobin 12.6, Hematocrit 39, Mean Corpuscular Volume 90, Mean Corpuscular Hemoglobin 29, Mean Corpuscular Hemoglobin Concent 32, Red Cell Distribution Width 14.2, Platelet Count 500H, Mean Platelet Volume 10.5H, Neutrophils (%) (Auto) 55, Lymphocytes (%) (Auto) 40 , Monocytes (%) (Auto) 3, Eosinophils (%) (Auto) 1, Basophils (%) (Auto) 1, Neutrophils # (Auto) 6.7, Lymphocytes # (Auto) 4.9H, Monocytes # (Auto) 0.4, Eosinophils # (Auto) 0.1, Basophils # (Auto) 0.1, Prothrombin Time 12.8, INR Comment 1.0, Activated Partial Thromboplast Time 30, Sodium Level 136, Potassium Level 3.6, Chloride Level 101, Carbon Dioxide Level 19L, Anion Gap 16H , Blood Urea Nitrogen 23H, Creatinine 1.28, Estimat Glomerular Filtration Rate 41, BUN/Creatinine Ratio 18, Glucose Level 388H, Calcium Level 8.8, Magnesium Level 2.2, Total Bilirubin 0.4, Aspartate Amino Transf (AST/SGOT) 40H, Alanine Aminotransferase (ALT/SGPT) 57H, Alkaline Phosphatase 78, Myoglobin 53.3, Troponin I < 0.30, C-Reactive Protein High Sensitivity 0.25, B-Type Natriuretic Peptide 2963.7H, Total Protein 6.7, Albumin 4.1 02/18/17 04:30: Lactic Acid Level 4.01*H, Thyroid Stimulating Hormone (TSH) 2.54, Free Thyroxine 1.06 02/18/17 05:32: Urine Color YELLOW, Urine Clarity CLOUDYH, Urine pH 5, Urine Specific [place] 1.020, Urine Protein 3+H, Urine Glucose (UA) 3+H, Urine Ketones NEGATIVE, Urine Nitrite POSITIVEH, Urine Bilirubin NEGATIVE, Urine Urobilinogen NORMAL, Urine Leukocyte Esterase NEGATIVE, Urine RBC (Auto) NEGATIVE, Urine RBC NONE, Urine WBC RARE, Urine Squamous Epithelial Cells NONE, Urine Crystals NONE, Urine Bacteria LARGEH, Urine Casts PRESENT, Urine Hyaline Casts 0-2H, Urine Mucus NEGATIVE, Urine Culture Indicated YES 02/18/17 07:11: Lactic Acid Level 1.07, Triglycerides Level 195H, Cholesterol Level 211H, LDL Cholesterol Direct 141H, VLDL Cholesterol 39, HDL Cholesterol 41 Radiology NAME: [facility] REC#: [id number] PT STATUS: ADM IN : 1940 PHYSICIAN: JHOAN KULKARNI MD ADMIT DATE: 02/18/17/ICU Draft Date of Exam:02/18/17 CHEST 1 VIEW, AP/PA ONLY EXAM: CHEST 1 VIEW, AP/PA ONLY INDICATION: Respiratory distress. COMPARISON: Chest radiograph 08/17/2011. FINDINGS: Increasing interstitial opacities throughout both lungs with a perihilar predominance. Small bilateral pleural effusions, greater on the right are new. Cardiomegaly. No pneumothorax. No acute osseous findings. IMPRESSION: New cardiomegaly and increasing interstitial opacities suspicious for pulmonary interstitial edema. Dictated on workstation # [id number] Dict: 02/18/17621 Trans: 02/18/17624 [id number] Interpreted by: SHAREE RONQUILLO MD Electronically signed by: ECG Impression ECG Initial ECG Rhythm: S.Tach A/P-Cardiology Assessment/Admission Diagnosis Exertional shortness of breath, progressive Chest discomfort of undetermined etiology Acute on chronic diastolic CHF UTI with sepsis - management per medical services MPI of 01/12/17: anteroapical infarction w/o significant ischemia; LVEF 39% Dizziness and vertigo (onset Mar 2015), improved after reduction of anti-htn and Invokana treatment in early Apr 2015 MRI head on 05/10/15 (Dr Mariano) did not show lesions other than possibility of chronic microvascular disease Holter of 03/31/15 showed NSR with occ PVCs, no VT or SVT or significant bradycardia Negative CT head w/o contrast on 03/23/15 LVEF 550-65%. Grade 3 diastolic dysfunction. LA is moderately to severely dilated. Mod calcified MV annulus. Mildly calcified MV leaflets with mod regurg. AoV with mod calcified annulus. Trileaflet; severely calcified leaflets with mild regurg. Mod aortic stenosis with a valve area of approx 1.4 sq cm and a mean gradient of approx 23mmHg. Mod TVR. PASP approx 50mmHg per echocardiogram of January 08, 2017 DM II CKD stage 3, likely diabetic nephropathy. Cr on 02-18-17 1.28 Hyperlipidemia - LDL greater than 140 on lab of 02-18-17 Intolerance to statins (severe joint pains) S/p hysterectomy w/o oophorectomy S/p bilateral knee replacement H/o R rotator cuff surgery Hypothyroidism, treated with thyroid replacement therapy Strong fam h/o CAD Bilateral leg and foot discomfort which has been diagnosed as neuropathy Mild to mod bilat carotid arterial disease per u/s carried out at [facility], on 05/10/15 Normal bilat EDDY from June 2014 VINEET DASILVA Feb 18, 2017 08:17
--- NOTE | 2017-02-18 08:26 | History & Physicial ---
History of Present Illness History of Present Illness Reason for visit/HPI PT IS A 76 Y/O FEMALE WHO IS KNOWN TO ME FROM CLINIC. SHE HAS KNOWN HISTORY OF CORONARY ARTERY DISEASE, IS IN THE MIDDLE OF WORK-UP FOR CAD WITH PLANNED HEART CATHETERIZATION FOR NEXT WEEK. SHE ALSO HAS HISTORY OF POORLY CONTROLLED DIABETES MELLITUS AND HYPERTENSION. MRS. WHITAKER PRESENTED TO THE EMERGENCY DEPARTMENT AFTER SEVERE AND ACUTE ONSET OF SHORTNESS OF BREATH. PER EMERGENCY DEPARTMENT PHYSICIAN REPORT, AFTER STARTING HER ON BIPAP AND GIVING HER A DOSE OF LASIX, SHE HAD IMPROVEMENT OF HER SYMPTOMS. SHE WAS SENT UP TO THE ICU FOR CLOSE MONITORING AND PLANNED EVALUATION BY CARDIOLOGY. Date of Admission Feb 18, 2017 at 05:32 Time Seen by Provider: 08:15 I consulted on this patient on 02/18/17 08:24 Attending Physician Kurtis Nicole MD Admitting Physician Kurtis Nicole MD Consult Allergies and Home Medications Allergies Coded Allergies: canagliflozin (Verified Allergy, Severe, LIGHT HEADED/HEADACHES/UTI/FELT LIKE SHE WOULD PASS OUT, 02/18/17) liraglutide (Verified Allergy, Severe, RAPID HEART RATE/HEADACHE/DIZZINESS , 02/18/17) Ptpawja-Jsc-Mgr Reductase Inhibitor (Verified Adverse Reaction, Severe, MUSCLE PAIN, 02/18/17) Home Medications Acetaminophen/Diphenhydramine 1 Each Tablet, 1 TAB PO HS, (Reported) Aspirin 81 Mg Tab.chew, 81 MG PO DAILY, (Reported) Bisoprolol Fumarate/Hctz 1 Each Tablet, 1 TAB PO DAILY, (Reported) Cholecalciferol (Vitamin D3) 2,000 Unit Capsule, 2,000 UNIT PO DAILY, (Reported) Escitalopram Oxalate 5 Mg Tablet, 5 MG PO DAILY, (Reported) Gabapentin 600 Mg Tablet, 600 MG PO TID, (Reported) Insulin Glargine,Hum.rec.anlog 100 Unit/1 Ml Insuln.pen, 10 UNIT SQ DAILY, ( Reported) Levothyroxine Sodium 50 Mcg Tablet, 50 MCG PO DAILY, (Reported) Metformin HCl 500 Mg Tablet, 500 MG PO TIDWM, (Reported) [place] 3 Polyunsat Fatty Acids 1,000 Mg Cap, 1,000 MG PO DAILY, (Reported) Past Edugcst-Dvjanp-Snetdp Hx Patient Social History Marrital Status: Living Status: LIVES AT HOME WITH SPOUSE WHO IS CHRONICALLY ILL Alcohol Use: Denies Use Recreational Drug Use: No Smoking Status: Never a Smoker Recent Foreign Travel: No Contact w/other who traveled: No Recent Hopitalizations: No Recent Infectious Disease Expo: No Immunizations Up To Date Date of Influenza Vaccine: Feb 12, 2015 Surgeries Yes (KNEES, carpal tunnel) Hysterectomy, Orthopedic, Tonsillectomy Respiratory No Cardiovascular Yes (aortic stenosis, carotid stenosis) Coronary Artery Disease (abnormal stress test), Peripheral Vascular, Valvular Heart Disease Neurological No Reproductive System : No Genitourinary No Gastrointestinal No Musculoskeletal No Endocrine History of Endocrine Disorders: Yes Endocrine Disorders: Diabetes, Non-Insulin dep HEENT History of HEENT Disorders: No Cancer No Psychosocial History of Psychiatric Problem: Yes Behavioral Health Disorders: Anxiety, Depression Integumentary History of Skin or Integumenta: No Reviewed Nursing Assessment Reviewed/Agree w Nursing PMH: Yes Family Medical History Significant Family History: Cancer, Hypertension Constitutional: No chills, No fever, malaise, weakness EENTM: No hoarseness, No throat pain Respiratory: No cough, dyspnea on exertion, orthopnea, short of breath Cardiovascular: chest pain, No palpitations Gastrointestinal: No abdominal pain, No constipation, No diarrhea Genitourinary: No dysuria, No frequency Musculoskeletal: No joint pain, muscle weakness Skin: no symptoms reported Psychiatric/Neurological: Anxiety All Other Systems Reviewed Negative Unless Noted: Yes Physical Exam Vital Signs Vital Sign - Last 12Hours 02/18/17 04:12 Temp 95.5 Pulse 138 Resp 36 B/P (MAP) 131/84 (100) Pulse Ox 92 O2 Delivery Nasal Cannula O2 Flow Rate 5.00 Capillary Refill : Less Than 3 Seconds General Appearance: No Apparent Distress, WD/WN Eyes: Bilateral Eye Normal Inspection, Bilateral Eye PERRL, Bilateral Eye EOMI HEENT: PERRL/EOMI, Pharynx Normal Neck: Full Range of Motion, Supple Respiratory: Chest Non Tender, Lungs Clear, Normal Breath Sounds, No Accessory Muscle Use Cardiovascular: Regular Rate, Rhythm, Systolic Murmur (ii/vi yong) Gastrointestinal: Normal Bowel Sounds, No Organomegaly, No Pulsatile Mass, Non Tender, Soft Rectal: Deferred Back: Normal Inspection Extremity: Normal Capillary Refill, Non Tender, No Calf Tenderness, No Pedal Edema Neurologic/Psychiatric: Alert, Oriented x3, No Motor/Sensory Deficits, Normal Mood/Affect Skin: Warm/Dry Lymphatic: No Adenopathy Assessment/Plan Assessment and Plan CONGESTIVE HEART FAILURE UTI CORONARY ARTERY DISEASE HYPERTENSION DIABETES MELLITUS PERIPHERAL NEUROPATHY HYPOTHYROIDISM CONGESTIVE HEART FAILURE -CORONARY ARTERY DISEASE - BNP OVER 1999 - CONTINUE WITH PLANS OF EVAL BY DR. LOPEZ - CARDIAC CATHETERIZATION. UTI - START ANTIBIOTICS CORONARY ARTERY DISEASE - HYPERTENSION - RESUME HOME MEDICATIONS DIABETES MELLITUS - RESUME HOME MEDICATIONS - WILL HAVE DIABETIC EDUCATION TALK TO PATIENT. PERIPHERAL NEUROPATHY - RESTART GABAPENTIN. HYPOTHYROIDISM - RESUME HOME MEDICATION Problems: Admission Diagnosis CONGESTIVE HEART FAILURE UTI CORONARY ARTERY DISEASE HYPERTENSION DIABETES MELLITUS PERIPHERAL NEUROPATHY HYPOTHYROIDISM KURTIS NICOLE MD Feb 18, 2017 08:26
[2017-02-18] MEDS ORDERED: cefTRIAXone 1 GM/NS 50 ML IVPB IV SCH ×2 (09:00)
[2017-02-18] MEDS ORDERED: OMG1KC PO (09:43)
[2017-02-18] MEDS ORDERED: INSU100I10 SQ (09:43)
[2017-02-18] MEDS ORDERED: ALPR0.254 PO (09:43)
[2017-02-18] MEDS ORDERED: ASPI-999 PO (09:43)
[2017-02-18] MEDS ORDERED: METF500T4 PO (09:43)
[2017-02-18] MEDS ORDERED: ACET-2469 PO (09:43)
[2017-02-18] MEDS ORDERED: BISO1TAB3 PO (09:43)
[2017-02-18] MEDS ORDERED: CHOL20003 PO (09:43)
--- NOTE | 2017-02-18 09:51 | Consultation-Cardiology ---
HPI-Cardiology Cardiology Consultation: Date of Consultation 02/18/17 Time Seen by Provider: 09:30 Date of Admission Attending Physician Mila Nicole MD Admitting Physician Mila Nicole MD Consulting Physician DEMARIO LOPEZ MD, MA, FACP, FACC, [facility] HPI: Chief Complaint: Dyspnea Ms. Momin is a 76 year old female admitted to ICU 12 from the ED earlier this morning. She reports she woke up last night with increasing shortness of breath , chest heaviness, pain in between her shoulder blades, and a feeling of a rapid heart beat. She reports orthopnea. She states her was able to summon 911. She states she felt diaphoretic. She reports emesis in the ambulance on the way to the hospital. She states she continues to feel short of breath, but feels it has improved. She denies any lower extremity edema. She reports the heaviness in her chest and pain in between her shoulder blades has also improved. No c/o fever or chills. Review of Systems-Cardiology Review of Systems Constitutional: As described under HPI, malaise Eyes: No vision change Ears/Nose/Throat: No epistaxis Respiratory: As described under HPI Cardiovascular: As described under HPI Gastrointestinal: nausea, vomiting Genitourinary: No dysuria, No hematuria Musculoskeletal: no symptoms reported Skin: No rash, No ulcerations Psychiatric/Neurological: No focal weakness, No syncope Hematologic: No bleeding abnormalities JLN-Ietdhy-Nsalcg Hx Patient Social History Alcohol Use: Denies Use Recreational Drug Use: No Smoking Status: Never a Smoker Recent Foreign Travel: No Recent Infectious Disease Expo: No Immunizations Up To Date Date of Influenza Vaccine: Feb 12, 2015 Past Medical History PMH As described under Assessment. Allergies and Home Medications Allergies Coded Allergies: canagliflozin (Verified Allergy, Severe, LIGHT HEADED/HEADACHES/UTI/FELT LIKE SHE WOULD PASS OUT, 02/18/17) liraglutide (Verified Allergy, Severe, RAPID HEART RATE/HEADACHE/DIZZINESS , 02/18/17) Bzycned-Oge-Huo Reductase Inhibitor (Verified Adverse Reaction, Severe, MUSCLE PAIN, 02/18/17) Home Medications Acetaminophen/Diphenhydramine 1 Each Tablet, 1 TAB PO HS, (Reported) Alprazolam 0.25 Mg Tablet, 0.25 MG PO DAILY, (Reported) Aspirin 81 Mg Tab.chew, 81 MG PO DAILY, (Reported) Bisoprolol Fumarate/Hctz 1 Each Tablet, 1 TAB PO DAILY, (Reported) Cholecalciferol (Vitamin D3) 2,000 Unit Capsule, 2,000 UNIT PO DAILY, (Reported) Gabapentin 600 Mg Tablet, 600 MG PO TID, (Reported) Insulin Glargine,Hum.rec.anlog 100 Unit/1 Ml Vial, 10 UNIT SQ DAILY, (Reported) Insulin Glargine,Hum.rec.anlog 100 Unit/1 Ml Insuln.pen, 10 UNIT SQ DAILY, ( Reported) Levothyroxine Sodium 50 Mcg Tablet, 50 MCG PO DAILY, (Reported) Metformin HCl 500 Mg Tablet, 500 MG PO TIDWM, (Reported) [place] 3 Polyunsat Fatty Acids 1,000 Mg Cap, 1,000 MG PO DAILY, (Reported) Physical Exam-Cardiology Physical Exam Vital Signs/I&O Vital Sign - Last 12Hours 02/18/17 02/18/17 02/18/17 02/18/17 04:12 04:12 04:30 06:35 Temp 95.5 Pulse 138 105 Resp 36 27 B/P (MAP) 131/84 (100) Pulse Ox 92 92 100 94 O2 Delivery Nasal Cannula Nasal Cannula Nasal Cannula O2 Flow Rate 5.00 80.00 3.00 02/18/17 02/18/17 02/18/17 02/18/17 06:35 06:40 06:40 07:00 Temp 97.8 Pulse 87 81 81 86 Resp 18 20 25 B/P (MAP) 121/94 (103) 104/76 Pulse Ox 94 96 O2 Delivery Nasal Cannula Room Air O2 Flow Rate 3.00 02/18/17 02/18/17 02/18/17 07:00 08:00 09:03 Pulse 86 85 Resp 18 20 B/P (MAP) 112/74 (87) 110/80 (90) Pulse Ox 94 98 O2 Delivery Nasal Cannula Nasal Cannula Nasal Cannula O2 Flow Rate 3.00 3.00 3.00 Capillary Refill : Less Than 3 Seconds Constitutional: appears stated age, AAO x 3, well-nourished HEENT: PERRL, hearing is well preserved, oral hygience is good, No xanthelasmas are seen Neck: No carotid bruit, carotid pulses are 2 + bilaterally Respiratory: No accessory muscle use, No respiratory distress, chest expansion is symmetric, chest is bilaterally symmetric, other (diminished bases bilat) Cardiovascular: regular rate-rhythm, No JVD, S1 and S2, systolic murmur (2-3 MSM) Gastrointestinal: No tender, soft, audible bowel sounds Rectal: deferred Extremities: no lower extremity edema bilateral Neurologic/Psychiatric: grossly intact Skin: No rash, No ulcerations Data Review Labs Laboratory Tests 02/18/17 00:00: Blood Gas Puncture Site L RAD, Blood Gas Patient Temperature 95.5, Arterial Blood pH 7.24*L, Arterial Blood Partial Pressure CO2 44, Arterial Blood Partial Pressure O2 266H, Arterial Blood HCO3 19L, Arterial Blood Total CO2 20.1L, Arterial Blood Oxygen Saturation 100, Arterial Blood Base Excess -7.8L, Sal Test YES-POS, Blood Gas Ventilator Setting NO, Blood Gas Inspired Oxygen 80% 02/18/17 04:23: White Blood Count 12.1H, Red Blood Count 4.39, Hemoglobin 12.6, Hematocrit 39, Mean Corpuscular Volume 90, Mean Corpuscular Hemoglobin 29, Mean Corpuscular Hemoglobin Concent 32, Red Cell Distribution Width 14.2, Platelet Count 500H, Mean Platelet Volume 10.5H, Neutrophils (%) (Auto) 55, Lymphocytes (%) (Auto) 40 , Monocytes (%) (Auto) 3, Eosinophils (%) (Auto) 1, Basophils (%) (Auto) 1, Neutrophils # (Auto) 6.7, Lymphocytes # (Auto) 4.9H, Monocytes # (Auto) 0.4, Eosinophils # (Auto) 0.1, Basophils # (Auto) 0.1, Prothrombin Time 12.8, INR Comment 1.0, Activated Partial Thromboplast Time 30, Sodium Level 136, Potassium Level 3.6, Chloride Level 101, Carbon Dioxide Level 19L, Anion Gap 16H , Blood Urea Nitrogen 23H, Creatinine 1.28, Estimat Glomerular Filtration Rate 41, BUN/Creatinine Ratio 18, Glucose Level 388H, Calcium Level 8.8, Magnesium Level 2.2, Total Bilirubin 0.4, Aspartate Amino Transf (AST/SGOT) 40H, Alanine Aminotransferase (ALT/SGPT) 57H, Alkaline Phosphatase 78, Myoglobin 53.3, Troponin I < 0.30, C-Reactive Protein High Sensitivity 0.25, B-Type Natriuretic Peptide 2963.7H, Total Protein 6.7, Albumin 4.1 02/18/17 04:30: Lactic Acid Level 4.01*H, Thyroid Stimulating Hormone (TSH) 2.54, Free Thyroxine 1.06 02/18/17 05:32: Urine Color YELLOW, Urine Clarity CLOUDYH, Urine pH 5, Urine Specific [place] 1.020, Urine Protein 3+H, Urine Glucose (UA) 3+H, Urine Ketones NEGATIVE, Urine Nitrite POSITIVEH, Urine Bilirubin NEGATIVE, Urine Urobilinogen NORMAL, Urine Leukocyte Esterase NEGATIVE, Urine RBC (Auto) NEGATIVE, Urine RBC NONE, Urine WBC RARE, Urine Squamous Epithelial Cells NONE, Urine Crystals NONE, Urine Bacteria LARGEH, Urine Casts PRESENT, Urine Hyaline Casts 0-2H, Urine Mucus NEGATIVE, Urine Culture Indicated YES 02/18/17 07:11: Lactic Acid Level 1.07, Triglycerides Level 195H, Cholesterol Level 211H, LDL Cholesterol Direct 141H, VLDL Cholesterol 39, HDL Cholesterol 41 Laboratory Tests 02/18/17 04:23 A/P-Cardiology Assessment/Admission Diagnosis Exertional shortness of breath, progressive, due to acute systolic CHF UTI with sepsis - management per Medical Services - clinically improved MPI of 01/12/17: anteroapical infarction w/o significant ischemia; LVEF 39% Dizziness and vertigo (onset Mar 2015), improved after reduction of anti-htn and Invokana treatment in early Apr 2015 MRI head on 05/10/15 (Dr Mariano) did not show lesions other than possibility of chronic microvascular disease Holter of 03/31/15 showed NSR with occ PVCs, no VT or SVT or significant bradycardia Negative CT head w/o contrast on 03/23/15 Echocardiogram of January 08, 2017: LVEF 55-65%. Grade 3 diastolic dysfunction. LA is moderately to severely dilated. Mod calcified MV annulus. Mildly calcified MV leaflets with mod regurg. AoV with mod calcified annulus and severely calcified leaflets with mild regurg. Mod aortic stenosis with a valve area of approx 1.4 sq cm and a mean gradient of approx 23mmHg. Mod TVR. PASP approx 50mmHg DM II CKD stage 3, likely diabetic nephropathy. Cr on 02-18-17 1.28 Hyperlipidemia - LDL greater than 140 on lab of 02-18-17 Intolerance to statins (severe joint pains) S/p hysterectomy w/o oophorectomy S/p bilateral knee replacement H/o R rotator cuff surgery Hypothyroidism, treated with thyroid replacement therapy Strong fam h/o CAD Bilateral leg and foot discomfort which has been diagnosed as neuropathy Mild to mod bilat carotid arterial disease per u/s carried out at [facility], on 05/10/15 Normal bilat EDDY from June 2014 Discussion and Recomendations * Complex management due to multiple comorbidities * Given abnormal stress test and presentation with acute systolic CHF, we recommend card cath. This was discussed in detail. We discussed the rationale, procedure, benefits, risks, potential complications, and alternatives of card cath and possible ad hoc cor intervention. She also understands that her risk of contrast nephropathy is higher than usual, given her baseline diabetic nephropathy. She understands all issues and provides informed consent * She is not suitable for ROM-inhib or ARB at this time because of relatively low bp and renal insuff. Will initiate ROM-inhib and BB if and when clinically appropriate DEMARIO LOPEZ MD FACP [facility] Feb 18, 2017 09:51
[2017-02-18] MEDS ORDERED: LIDOCAINE 1% INJ 50 ML (XYLOCAINE) VIAL ONE (10:39)
[2017-02-18] MEDS ORDERED: NS IV 1000 ML 1,000 ML ONE (10:40)
[2017-02-18] MEDS ORDERED: MIDAZOLAM 2 MG/2 ML (VERSED) VIAL ONE (10:40)
[2017-02-18] MEDS ORDERED: diphenhydrAMINE 50 MG/ML INJ (BENADRYL) ONE (10:40)
[2017-02-18] MEDS ORDERED: HEParin (CATH LAB) 2,000 ML IV ONE (10:40)
[2017-02-18] MEDS ORDERED: fentaNYL INJECTION 100 MCG/2 ML AMP ONE (10:40)
[2017-02-18] MEDS ORDERED: RT-ALBUTEROL SULF 2.5 MG/3 ML PRE-MIX VIAL IH PRN (10:45)
[2017-02-18] MEDS ORDERED: NS IV 1000 ML 1,000 ML IV SCH (12:07)
[2017-02-18] MEDS ORDERED: FUROSEMIDE 40 MG/4 ML INJ (LASIX) IVP NR (12:15)
[2017-02-18] MEDS ORDERED: KCL 20 MEQ TAB (K-DUR) PO NR (12:15)
[2017-02-18] MEDS ORDERED: ASPIRIN 81 MG CHEW (CHILDREN'S ASA) PO NR (12:15)
[2017-02-18] MEDS ORDERED: lisINopril 5 MG (PRINIVIL) TABLET PO NR (12:15)
[2017-02-18] MEDS ORDERED: PATIENT MAY USE OWN MEDS, ALL PO SCH (12:15)
--- NOTE | 2017-02-18 12:21 | Cardiology Discharge Summary ---
Diagnosis/Chief Complaint Date of Admission Feb 18, 2017 at 05:32 Date of Discharge 02/18/17 Final/Discharge Diagnosis Exertional shortness of breath, progressive, due to acute systolic CHF due to ischemic cardiomyopathy (see cath results below) CAD. Card cath of 02/18/17 shows dual LAD system of which one is proximally occluded and the other has multiple up to 80% lesions in the proximal and mid portion; LCX and RCA have mild to mod disease; there is anteroapical severe hypokinesis; LVEF is 35%; LVEDP is 28 mmHg; there is at least moderate aortic stenosis with a nscu-py-dvog gradient of 25-30 mmHg on pullback across the aortic valve; MAC and moderate mitral regurg UTI with sepsis - management per Medical Services - clinically improved MPI of 01/12/17: anteroapical infarction w/o significant ischemia; LVEF 39% Echocardiogram of January 08, 2017: LVEF 55-65%. Grade 3 diastolic dysfunction. LA is moderately to severely dilated. Mod calcified MV annulus. Mildly calcified MV leaflets with mod regurg. AoV with mod calcified annulus and severely calcified leaflets with mild regurg. Mod aortic stenosis with a valve area of approx 1.4 sq cm and a mean gradient of approx 23mmHg. Mod TVR. PASP approx 50mmHg DM II CKD stage 3, likely diabetic nephropathy. Cr on 02-18-17 1.28 Hyperlipidemia - LDL greater than 140 on lab of 02-18-17 Intolerance to statins (severe joint pains) S/p hysterectomy w/o oophorectomy S/p bilateral knee replacement H/o R rotator cuff surgery Hypothyroidism, treated with thyroid replacement therapy Strong fam h/o CAD Bilateral leg and foot discomfort which has been diagnosed as neuropathy Mild to mod bilat carotid arterial disease per u/s carried out at [facility], on 05/10/15 Normal bilat EDDY from June 2014 Chief Complaint/HPI Chief Complaint/HPI Ms. Momin is a 76 year old female admitted to ICU 12 from the ED earlier this morning. She reports she woke up last night with increasing shortness of breath , chest heaviness, pain in between her shoulder blades, and a feeling of a rapid heart beat. She reports orthopnea. She states her was able to summon 911. She states she felt diaphoretic. She reports emesis in the ambulance on the way to the hospital. She states she continues to feel short of breath, but feels it has improved. She denies any lower extremity edema. She reports the heaviness in her chest and pain in between her shoulder blades has also improved. No c/o fever or chills. See above for heart cath results. We had a detailed discussion with the patient and her family after cardiac cath and discussed treatment options, including PCI to prox and mid LAD, medical therapy only, and CABG (with possible valve surgery, as well). Given that she has DM II, has prox LAD disease and has ventricular systolic impairment, CABG (BAUMAN to LAD) appears to be the best treatment option. Also, at the same time, she needs to be evaluated for valve surgery (given at least mod and mod MR). I called Dr Weaver of the CV Surg Sv[facility] at [facility] and discussed all of the above with him in detail. He has accepted the patient in transfer. Family and patient agree with this plan Discharge Summary Procedures Card cath on 02/18/17 Hospital Course Pending Labs Laboratory Tests 02/18/17 04:23: White Blood Count 12.1, Red Blood Count 4.39, Hemoglobin 12.6, Hematocrit 39, Mean Corpuscular Volume 90, Mean Corpuscular Hemoglobin 29, Mean Corpuscular Hemoglobin Concent 32, Red Cell Distribution Width 14.2, Platelet Count 500, Mean Platelet Volume 10.5, Neutrophils (%) (Auto) 55, Lymphocytes (%) (Auto) 40 , Monocytes (%) (Auto) 3, Eosinophils (%) (Auto) 1, Basophils (%) (Auto) 1, Neutrophils # (Auto) 6.7, Lymphocytes # (Auto) 4.9, Monocytes # (Auto) 0.4, Eosinophils # (Auto) 0.1, Basophils # (Auto) 0.1, Prothrombin Time 12.8, INR Comment 1.0, Activated Partial Thromboplast Time 30, Sodium Level 136, Potassium Level 3.6, Chloride Level 101, Carbon Dioxide Level 19, Anion Gap 16, Blood Urea Nitrogen 23, Creatinine 1.28, Estimat Glomerular Filtration Rate 41, BUN/Creatinine Ratio 18, Glucose Level 388, Calcium Level 8.8, Magnesium Level 2.2, Total Bilirubin 0.4, Aspartate Amino Transf (AST/SGOT) 40, Alanine Aminotransferase (ALT/SGPT) 57, Alkaline Phosphatase 78, Myoglobin 53.3, Troponin I < 0.30, C-Reactive Protein High Sensitivity 0.25, B-Type Natriuretic Peptide 2963.7, Total Protein 6.7, Albumin 4.1 02/18/17 04:30: Lactic Acid Level 4.01, Thyroid Stimulating Hormone (TSH) 2.54, Free Thyroxine 1.06 02/18/17 05:32: Urine Color YELLOW, Urine Clarity CLOUDY, Urine pH 5, Urine Specific [place] 1.020, Urine Protein 3+, Urine Glucose (UA) 3+, Urine Ketones NEGATIVE, Urine Nitrite POSITIVE, Urine Bilirubin NEGATIVE, Urine Urobilinogen NORMAL, Urine Leukocyte Esterase NEGATIVE, Urine RBC (Auto) NEGATIVE, Urine RBC NONE, Urine WBC RARE, Urine Squamous Epithelial Cells NONE, Urine Crystals NONE, Urine Bacteria LARGE, Urine Casts PRESENT, Urine Hyaline Casts 0-2, Urine Mucus NEGATIVE, Urine Culture Indicated YES 02/18/17 07:11: Lactic Acid Level 1.07, Triglycerides Level 195, Cholesterol Level 211, LDL Cholesterol Direct 141, VLDL Cholesterol 39, HDL Cholesterol 41 Discussion & Recommendations Home Medications Reviewed patient Home Medication Reconciliation Form Discharge Home Medications: Reviewed and agree with Discharge Medication list on patient's Discharge Instruction sheet Clinical Quality Measures DVT/VTE Risk/Contraindication: Risk Factor Score Per Nursin RFS Level Per Nursing on Admit: 4+=Very High DEMARIO LOPEZ MD FACP [facility] Feb 18, 2017 12:21
[2017-02-18] MEDS ORDERED: CATHETER FLUSH 10 ML SYR IV PRN (13:00)
--- NOTE | 2017-02-18 15:32 | CARDIAC CATHETERIZATION ---
DATE OF SERVICE: 02/18/2017 CARDIAC CATHETERIZATION REPORT The patient is a 76-year-old lady with multiple coronary artery disease risk factors, including maturity-onset diabetes mellitus. She was hospitalized with acute congestive heart failure. A myocardial perfusion imaging study carried out in late 12/2016 had indicated anteroapical infarction and impairment of left ventricular ejection fraction. Cardiac catheterization had been recommended at that time, but she had not agreed. She did agree to the cardiac catheterization today and this was carried out after having obtained an informed consent. PROCEDURE: She was brought to the cardiac catheterization laboratory in a fasting state. Right groin was prepared and draped in the usual sterile fashion. A 1% lidocaine with local anesthesia. Modified Seldinger technique was used to advance a 5-Kyrgyz sheath in the right femoral artery. A 5-Kyrgyz JL4 catheter used for left coronary angiography. A 5-Kyrgyz JR4 catheter used for right coronary angiography. A 5-Kyrgyz pigtail catheter was used for angiography of the aortic root. A 5-Kyrgyz pigtail catheter was used for left heart catheterization and left ventricular angiography. The pigtail catheter was then pulled back and removed. Manual pressure was used to achieve hemostasis following sheath removal. She tolerated the procedure well. HEMODYNAMICS: Left ventricular end-diastolic pressure following coronary angiography was 28 mmHg. There was approximately 25 to 30 mm of pressure gradient on pullback across the aortic valve. Ascending aortic pressure was 140/81 with a mean of 97 mmHg. LEFT VENTRICULAR ANGIOGRAPHY: Left ventricular angiography was carried out in the right anterior oblique projection only. There is anteroapical severe hypokinesis. Left ventricular ejection fraction of approximately 35%. There is mitral annular calcification. There is moderate mitral regurgitation. AORTIC ROOT ANGIOGRAPHY: Aortic root angiography does not indicate thoracic aortic aneurysm or dissection. It does show calcification of the aortic valve and diminished leaflet excursion of the aortic valve leaflets. There does not appear to be significant aortic regurgitation. CORONARY ANGIOGRAPHY: Left main coronary artery does not exhibit significant disease. There appears to be a dual left anterior descending arterial system. One branch of this dual left anterior descending artery is completely occluded in its proximal portion. The other branch of the dual left anterior descending artery system has multiple 70% to 80% stenoses in its proximal and mid portions. The left circumflex artery is codominant with the right coronary artery. Both the left circumflex and the right coronary arteries have mild to moderate disease. Diffuse coronary calcification is present. CONCLUSIONS: 1. Coronary artery disease as described above. There is a dual left anterior descending system of which one is proximally occluded and the other has multiple up to 80% stenoses in its proximal and mid portion. 2. The left circumflex and the right coronary arteries have mild to moderate disease. There is anteroapical severe hypokinesis. Left ventricular ejection fraction is 35%. Left ventricular end diastolic pressure is 28 mmHg. 3. Valvular heart disease consisting of at least moderate aortic stenosis with a [id number] gradient of 25 to 30 mmHg on pullback across the aortic valve and mitral annular calcification with moderate mitral regurgitation. 4. Elevated left ventricular end diastolic pressure. 5. Impairment of global left ventricular systolic function with anteroapical hypokinesis and left ventricular ejection fraction of 35%. DISCUSSION AND RECOMMENDATIONS: The patient has proximal left anterior descending artery disease in the presence of maturity-onset diabetes mellitus and impairment of left ventricular systolic function. It appears that coronary artery bypass surgery would be the best treatment option. Nevertheless, we reviewed in detail all treatment options with the patient and her family. They opt for a surgery. We spoke with Dr. Weaver of the cardiovascular surgical services at [facility] and I explained the case to him in detail. The patient also needs to be evaluated for valvular surgery, given that she has at least moderate aortic stenosis and moderate mitral regurgitation. Dr. Weaver, has kindly accepted the patient in transfer for evaluation of coronary artery bypass surgery and, if needed, valve surgery. Job ID: [id number] DocumentID: [id number] Dictated Date: 02/18/2017 12:36:44 [employer] Date: 02/18/2017 13:21:30 Dictated By: DEMARIO LOPEZ MD, MA, FACP, FACC, MTDD
[2017-02-19] MEDS ORDERED: ASPIRIN 81 MG CHEW (CHILDREN'S ASA) PO SCH (09:00)
[2017-02-19] MEDS ORDERED: lisINopril 5 MG (PRINIVIL) TABLET PO SCH (09:00)
--- NOTE | 2017-02-22 15:18 | Physician Query Clarification ---
PQ-Uncertain Diagnosis Admission/Discharge Admission Date: Feb 18, 2017 at 05:32 Discharge Date: Feb 18, 2017 at 14:20 The medical record reflects the following clinical scenario: History/Risk Factors: UTI Clinical Findings: T 95.5, Pulse 138, Resp 36, BP 131/84, Lactic Acid 4.01, WBC 12.1 Urine culture showing > 100,000/ML Klebsiella Pneumoniae and Probable Actinomyces Species 10,000/ML-100,000/ML Treatment: IV Ceftriaxone Sodium Question: Is Sepsis a clinically valid diagnosis? Sepsis was documented in your consult and discharge with no further documentation in the medical record by other physicians. Please document a response below. PHYSICIAN RESPONSE Diagnosis clinically valid: Undetermined Explanation of clincal finding If sepsis was not documented by the [facility], then please remove. I would like to restrict my diagnoses to cardiovascular ones In responding to this query, please exercise your independent professional judgment. The purpose of this communication is to more accurately reflect the complexity of your patients condition. The fact that a question is asked does not imply that any particular answer is desired or expected. Thank you for your timely response to this clarification. Requestors name: Sarina Hess [facility] Phone # ext [phone] or [phone] THIS PHYSICIAN QUERY FORM IS A PERMANENT PART OF THE MEDICAL RECORD SARINA HESS Feb 22, 2017 15:18 DEMARIO LOPEZ MD [facility] Feb 25, 2017 09:56
== END 2017-02-18 14:20 | disposition short-term general hospital (02) | DRG 871 ==
LOC: EDUNIT# 04:12 → ER 04:14 → ICU 05:32
PROVIDERS: ADMIT Family Medicine; ATTEND Family Medicine
PROC: 4A023N7 Measurement of Cardiac Sampling and Pressure, Left Heart, Percutaneous Approach (ICD-10-PCS; principal; 2017-02-18)
PROC: B2111ZZ Fluoroscopy of Multiple Coronary Arteries using Low Osmolar Contrast (ICD-10-PCS; 2017-02-18)
PROC: B2151ZZ Fluoroscopy of Left Heart using Low Osmolar Contrast (ICD-10-PCS; 2017-02-18)
PROC: B4101ZZ Fluoroscopy of Abdominal Aorta using Low Osmolar Contrast (ICD-10-PCS; 2017-02-18)
DX: A41.9 Sepsis, unspecified organism (principal); N39.0 Urinary tract infection, site not specified; I50.21 Acute systolic (congestive) heart failure; I25.5 Ischemic cardiomyopathy; I08.0 Rheumatic disorders of both mitral and aortic valves; E11.21 Type 2 diabetes mellitus with diabetic nephropathy; N18.3 Chronic kidney disease, stage 3 (moderate); E11.42 Type 2 diabetes mellitus with diabetic polyneuropathy; I25.2 Old myocardial infarction; E78.5 Hyperlipidemia, unspecified; E03.9 Hypothyroidism, unspecified; I65.23 Occlusion and stenosis of bilateral carotid arteries; F41.9 Anxiety disorder, unspecified; F32.9 Major depressive disorder, single episode, unspecified; Z96.653 Presence of artificial knee joint, bilateral; Z82.49 Family history of ischemic heart disease and other diseases of the circulatory system; Z79.84 Long term (current) use of oral hypoglycemic drugs
CPT/HCPCS: 36415; 51702; 71010; 80053; 80061; 81000; 82805; 83605; 83735; 83874; 83880; 84439; 84443; 84484; 85025; 85610; 85730; 86141; 87040; 87077; 87081; 87088; 87186; 93005; 93041; 93458; 93567; 94640; 96374; 96375

== ENCOUNTER 2017-08-25 05:18 | Emergency (ER) | payer MEDICARE ==
[~2017-08-25] VITALS: Ht 160 cm; Wt 73.1 kg
[~2017-08-25 05:18] MED LIST changes: +ACET-2469 PO; +ALPR0.254 PO; +APIX5TAB PO; +ASPI-999 PO; +BISO1TAB3 PO; +CHOL20003 PO; +DIGO250T15 PO; +ESCI5TAB12 PO; +EZET10TA27 PO; +FLUT16SP22 NS; +FURO40TA4 PO; +GABA600T2 PO; +INSU100I10 SQ; +INSU100V6 SQ; +METF500T5 PO; +METO-387 PO; +METO-395 PO; +Nitroglycerin SL; +OMG1KC PO; +PANT40TA3 PO; +POTA20TA8 PO; +PRAS10TA10 PO; +SACU1TAB PO
--- OUTSIDE RECORDS SUMMARY | 2017-08-25 05:28 | XMS REPORT | Continuity of Care Document ---
Author Author [facility] Organization [facility] Address Unknown Phone Unavailable Allergies Active Description Code Type Severity Reaction Onset Reported/Identified Relationship to Patient Clinical Status Yes No Known Drug Allergies [id number] Drug Allergy Unknown N/A 12/30/2011 Yes canagliflozin [id number] Drug Allergy Severe LIGHT HEADED/HE 02/18/2017 Yes liraglutide [id number] Drug Allergy Severe RAPID HEART RAT 02/18/2017 Yes Cygzxwq-Hxa-Umv Reductase Inhibitor [id number] Drug Allergy Severe MUSCLE PAIN 02/18/2017 Medications There is no data. Problems Date Dx Coded Attending Type Code Diagnosis Diagnosed By 06/08/2014 Ot 785.2 06/15/2014 Ot 785.2 07/11/2014 JOHN LEMUS FACC, ALI FACP CCDS Ot 250.00 07/11/2014 JOHN LEMUS FACC, ALI FACP CCDS Ot 424.1 07/11/2014 JOHN LEMUS FACC, ALI FACP CCDS Ot 729.5 07/11/2014 JOHN LEMUS FACC, ALI FACP CCDS Ot 786.09 07/11/2014 JOHN LEMUS FACC, ALI FACP CCDS Ot 786.50 07/11/2014 [...] FACP CCDS Ot 424.1 08/03/2014 JOHN LEMUS FAC, ALI FACP CCDS Ot 729.5 08/03/2014 JOHN LEMUS FACC, ALI FACP CCDS Ot 786.09 08/03/2014 JOHN LEMUS FACC, ALI FACP CCDS Ot 786.59 08/21/2014 JOHN LEMUS FACC, ALI FACP CCDS Ot 250.00 08/21/2014 JOHN BAEZ, ALI FACP CCDS Ot 424.1 08/21/2014 JOHN LEMUS FAC, ALI FACP CCDS Ot 729.5 08/21/2014 JOHN LEMUS FAC, ALI FACP CCDS Ot 786.09 08/21/2014 JOHN LEMUS FACC, ALI FACP CCDS Ot 786.59 12/19/2014 GALE MENDEZ MD Ot 722.10 12/19/2014 GALE MENDEZ MD Ot 722.52 01/04/2015 LAITH BECK MD Ot M47.896 OTHER SPONDYLOSIS, LUMBAR REGION 01/04/2015 LAITH BECK MD Ot M51.26 OTHER INTERVERTEBRAL DISC DISPLACEMENT, 01/04/2015 LAITH BECK MD Ot Z79.899 OTHER VETERANS ADVISER (CURRENT) DRUG THERAPY 01/09/2015 GALE MENDEZ MD [...] ALI FACP CCDS Ot 729.5 03/23/2015 JOHN BAEZ, ALI FACP CCDS Ot 786.09 03/23/[address] [facility], ALI FACP CCDS Ot 786.59 03/23/[address] [facility], ALI FACP CCDS Ot 250.00 03/23/[address] [facility], ALI FACP CCDS Ot 424.1 03/23/[address] [facility], ALI FACP CCDS Ot 729.5 03/23/[address] [facility], ALI FACP CCDS Ot 786.09 03/23/[address] [facility], ALI FACP CCDS Ot 786.50 03/23/[address] [facility], ALI FACP CCDS Ot V58.69 03/23/2015 ANDREA LEMUS, GALE Bae Ot 724.4 03/23/2015 GALE MENDEZ MD Ot 722.10 03/23/2015 GALE MENDEZ MD Ot 722.52 03/23/2015 ZORAIDA FORMAN GUNSTOCK REPAIRER Ot 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 03/23/2015 ZORAIDA FORMAN GUNSTOCK REPAIRER Ot N39.0 URINARY TRACT INFECTION, SITE NOT SPECIF 03/23/2015 ZORAIDA FORMAN GUNSTOCK REPAIRER Ot R11.0 NAUSEA 04/30/[address] [facility], ALI FACP CCDS Ot I35.0 04/30/[address] [facility], ALI FACP CCDS Ot I65.23 04/30/[address] [facility], ALI FACP CCDS Ot R42 05/07/[address] [facility], ALI FACP CCDS Ot I35.0 05/07/[address] [facility], ALI FACP CCDS Ot I65.23 05/07/[address] [facility], ALI FACP CCDS Ot R42 06/04/2015 EVERARDO LEMUS, THOMAS Carvalho Ot I65.23 06/18/2015 EVERARDO LEMUS, THOMAS Carvalho Ot I65.23 07/15/2015 Ot V76.12 OT SCREEN MAMMO-MALIGN NEOPLASM OF [place] 07/15/2015 Ot 715.91 OSTEOARTHROS NOS-SHLDER 07/15/2015 Ot 722.4 CERVICAL DISC DEGEN 07/15/2015 Ot 250.00 DIAB FAIZAN WO COMPL, TYPE II OR UNSPEC TY 07/15/2015 Ot 780.4 DIZZINESS AND GIDDINESS 07/15/2015 Ot 780.8 GENERALIZED HYPERHIDROSIS 07/15/2015 Ot V58.69 OTH MED,LT, CURRENT USE 07/15/2015 Ot 729.5 PAIN IN LIMB [...] 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 07/15/2015 JOHN LEMUS FACC, ALI FACP CCDS Ot I35.0 NONRHEUMATIC AORTIC (VALVE) STENOSIS 07/15/2015 JOHN LEMUS FACC, ALI FACP CCDS Ot I65.23 OCCLUSION AND STENOSIS OF [place]ILATERAL [place] 07/15/2015 JOHN LEMUS FACC, ALI FACP CCDS Ot R42 DIZZINESS AND GIDDINESS 07/15/2015 EVERARDO LEMUS, THOMAS Carvalho Ot I65.23 OCCLUSION AND STENOSIS OF [place] 07/15/2015 LAITH BECK MD, Ot M51.16 INTERVERTEBRAL DISC DISORDERS W RADICULO 07/15/2015 LAITH BECK MD, Ot Z53.8 PROCEDURE AND TREATMENT NOT CARRIED OUT 07/19/2015 LAITH BECK MD Ot M47.816 SPONDYLOSIS W/O MYELOPATHY OR RADICULOPA 07/19/2015 LAITH BECK MD, Ot M51.16 INTERVERTEBRAL DISC DISORDERS W RADICULO 07/19/2015 LAITH BECK MD, Ot Z79.899 OTHER VETERANS ADVISER (CURRENT) DRUG THERAPY 07/29/2015 LAITH BECK MD, Ot M51.16 INTERVERTEBRAL DISC DISORDERS W RADICULO 07/29/2015 LAITH BECK MD, Ot Z53.8 PROCEDURE AND TREATMENT NOT CARRIED OUT 08/08/2015 EVERARDO LEMUS, THOMAS Carvalho Ot I65.23 OCCLUSION AND STENOSIS OF [place]ILATERAL [place] 11/19/2015 BAIMAVINEET L DIRECTOR OPERATIONS BROADCAST Ot I35.0 NONRHEUMATIC AORTIC (VALVE) STENOSIS 11/20/2015 BAIMA, VINEET L DIRECTOR OPERATIONS BROADCAST Ot I35.0 NONRHEUMATIC AORTIC (VALVE) STENOSIS 11/20/2015 BAIMA, VINEET L DIRECTOR OPERATIONS BROADCAST Ot I35.0 NONRHEUMATIC AORTIC (VALVE) STENOSIS 12/12/2015 BAIMA, VINEET L DIRECTOR OPERATIONS BROADCAST Ot I35.0 NONRHEUMATIC AORTIC (VALVE) STENOSIS 12/19/2015 BAIMA, VINEET L DIRECTOR OPERATIONS BROADCAST Ot I35.0 NONRHEUMATIC AORTIC (VALVE) STENOSIS 12/20/2015 Ot V76.12 OTH SCREEN MAMMO-MALIGN NEOPLASM OF [place] 12/20/2015 Ot 715.91 OSTEOARTHROS NOS-SHLDER 12/20/2015 Ot 722.4 CERVICAL DISC DEGEN 12/20/2015 Ot 250.00 DIAB FAIZAN WO COMPL, TYPE II OR UNSPEC TY 12/20/2015 Ot 780.4 DIZZINESS AND GIDDINESS 12/20/2015 Ot 780.8 GENERALIZED HYPERHIDROSIS 12/20/2015 Ot V58.69 OTH MED,LT, CURRENT USE 12/20/2015 Ot 729.5 PAIN IN LIMB 12/20/2015 SAFIA LEMUS, HENRY Camarena Ot V76.12 OT SCREEN MAMMO-MALIGN NEOPLASM OF [place] 12/20/2015 Ot 785.2 CARDIAC MURMURS NEC 12/20/2015 JOHN LEMUS FACC, ALI FACP CCDS Ot 250.00 DIAB FAIZAN WO COMPL, TYPE II OR UNSPEC TY 12/20/2015 JOHN LEMUS FACDoc, ALI FACP CCDS Ot 424.1 AORTIC VALVE DISORDER 12/20/2015 JOHN LEMUS FACC, ALI FACP CCDS Ot 729.5 PAIN IN LIMB 12/20/2015 JOHN BAEZC, ALI FACP CCDS Ot 786.09 RESPIRATORY ABNORM [...] CCDS Ot 786.50 CHEST PAIN NOS 12/20/2015 JOHN LEMUS FACC, ALI FACP CCDS Ot V58.69 OT MED,LT,CURRENT USE 12/20/2015 GALE MENDEZ MD Ot 724.4 LUMBOSACRAL NEURITIS NOS 12/20/2015 GALE MENDEZ MD Ot 722.10 LUMBAR DISC DISPLACEMENT 12/20/2015 GALE MENDEZ MD Ot 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 12/20/2015 JOHN LEMUS FACC, DEMARIO FACP CCDS Ot I35.0 NONRHEUMATIC AORTIC (VALVE) STENOSIS 12/20/2015 JOHN LEMUS FACC, ALI FACP CCDS Ot I65.23 OCCLUSION AND STENOSIS OF BILATERAL [place] 12/20/2015 JOHN LEMUS FACC, ALI FACP CCDS Ot R42 DIZZINESS AND GIDDINESS 12/20/2015 EVERARDO LEMUS, THOMAS Carvalho Ot I65.23 OCCLUSION AND STENOSIS OF [place]IL[place] 12/20/2015 IVNEET DASILVA DIRECTOR OPERATIONS BROADCAST Ot I35.0 NONRHEUMATIC AORTIC (VALVE) STENOSIS 12/23/2015 [...] 780.8 GENERALIZED HYPERHIDROSIS 12/26/2015 Ot V58.69 OTH MED,LT, CURRENT USE 12/26/2015 Ot 729.5 PAIN IN LIMB 12/26/2015 SAFIA LEMUS, HENRY Camarena Ot V76.12 OTH SCREEN MAMMO-MALIGN NEOPLASM OF [place] 12/26/2015 Ot 785.2 CARDIAC MURMURS NEC 12/26/2015 JOHN LEMUS FACC, ALI FACP CCDS Ot 250.00 DIAB FAIZAN WO COMPL, TYPE II OR UNSPEC TY 12/26/2015 JOHN BAEZC, ALI FACP CCDS Ot 424.1 AORTIC VALVE DISORDER 12/26/2015 JOHN LEMUS FACC, ALI FACP CCDS Ot 729.5 PAIN IN LIMB 12/26/2015 JOHN LEMUS FACC, ALI FACP CCDS Ot 786.09 RESPIRATORY ABNORM NEC 12/26/2015 JOHN LEMUS FACC, ALI FACP CCDS Ot 786.59 CHEST PAIN NEC 12/26/2015 JOHN LEMUS FACDoc, ALI FACP CCDS Ot 250.00 DIAB FAIZAN [...] LEMUS FACC, ALI FACP CCDS Ot V58.69 OTH MED,LT,CURRENT USE 12/26/2015 GALE MENDEZ MD Ot [...] STENOSIS OF [place] 12/26/2015 VINEET DASILVA Ot I35.0 NONRHEUMATIC AORTIC (VALVE) STENOSIS 12/26/2015 KIRAN LEMUS, LAITH Bae Ot M51.16 INTERVERTEBRAL DISC DISORDERS W RADICULO 12/27/2015 OPAL BLUE GUNSTOCK REPAIRER Ot E11.9 TYPE 2 DIABETES MELLITUS WITHOUT COMPLIC 12/27/2015 Ot V76.12 OTH SCREEN MAMMO-MALIGN NEOPLASM OF [place] 12/27/2015 Ot 715.91 OSTEOARTHROS NOS-SHLDER 12/27/2015 Ot 722.4 CERVICAL DISC DEGEN 12/27/2015 Ot 250.00 DIAB FAIZAN WO COMPL, TYPE II OR UNSPEC TY 12/27/2015 Ot 780.4 DIZZINESS AND GIDDINESS 12/27/2015 Ot 780.8 GENERALIZED HYPERHIDROSIS 12/27/2015 Ot V58.69 OTH MED,LT, CURRENT USE 12/27/2015 Ot 729.5 PAIN IN LIMB [...] CHEST PAIN NOS 12/27/2015 JOHN LEMUS FACC, ALI FACP CCDS Ot V58.69 OT MED,LT,CURRENT USE 12/27/2015 GALE MENDEZ MD Ot 724.4 LUMBOSACRAL NEURITIS NOS 12/27/2015 GALE MENDEZ MD Ot 722.10 LUMBAR DISC DISPLACEMENT 12/27/2015 GALE MENDEZ MD Ot 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 12/27/2015 JOHN LEMUS FACC, ALI FACP CCDS Ot I35.0 NONRHEUMATIC AORTIC (VALVE) STENOSIS 12/27/2015 JOHN LEMUS FACC, ALI FACP CCDS Ot I65.23 OCCLUSION AND STENOSIS OF [place]ILATER[place] 12/27/2015 JOHN LEMUS FACC, ALI FACP CCDS Ot R42 DIZZINESS AND GIDDINESS 12/27/2015 EVERARDO LEMUS, THOMAS Carvalho Ot I65.23 OCCLUSION AND STENOSIS OF [place] 12/27/2015 VINEET DASILVA DIRECTOR OPERATIONS BROADCAST Ot I35.0 NONRHEUMATIC AORTIC (VALVE) STENOSIS 12/27/2015 OPAL BLUE APRN Ot E11.9 TYPE 2 DIABETES MELLITUS WITHOUT COMPLIC 12/27/2015 LAITH BECK MD Ot M51.16 INTERVERTEBRAL DISC DISORDERS W RADICULO 01/09/2016 LAITH BECK MD Ot M47.816 SPONDYLOSIS W/O MYELOPATHY OR RADICULOPA 01/09/2016 LAITH BECK MD, Ot M51.16 INTERVERTEBRAL DISC DISORDERS W RADICULO 01/09/2016 LAITH BECK MD Ot Z79.899 OTHER SENIOR CARE (CURRENT) DRUG THERAPY 01/28/2016 LAITH BECK MD, Ot M47.816 SPONDYLOSIS W/O MYELOPATHY OR RADICULOPA 01/28/2016 LAITH BECK MD, Ot M51.16 INTERVERTEBRAL DISC DISORDERS W RADICULO 01/28/2016 LAITH BECK MD, Ot Z79.899 OTHER SENIOR CARE (CURRENT) DRUG THERAPY 02/04/2016 OPAL BLUE APRN Ot E11.9 TYPE 2 DIABETES MELLITUS WITHOUT COMPLIC 02/05/2016 LAITH BECK MD, Ot M47.816 SPONDYLOSIS W/O MYELOPATHY OR RADICULOPA 02/05/2016 LAITH BECK MD, Ot M51.16 INTERVERTEBRAL DISC DISORDERS W RADICULO 02/05/2016 LAITH BECK MD Ot Z79.899 OTHER VETERANS ADVISER (CURRENT) DRUG THERAPY 03/18/2016 OPAL BLUE GUNSTOCK REPAIRER Ot E11.9 TYPE 2 DIABETES MELLITUS WITHOUT COMPLIC 03/25/2016 OPAL BLUE APRN Ot E11.9 TYPE 2 DIABETES MELLITUS WITHOUT COMPLIC 08/31/2016 LAITH BECK MD, Ot M51.16 INTERVERTEBRAL DISC DISORDERS W RADICULO 08/31/2016 LAITH BECK MD, Ot Z79.84 VETERANS ADVISER (CURRENT) USE OF ORAL HYPOGLYC 08/31/2016 LAITH BECK MD, Ot Z79.899 OTHER SENIOR CARE (CURRENT) DRUG THERAPY 09/17/2016 LAITH BECK MD, Ot M51.16 INTERVERTEBRAL DISC DISORDERS W RADICULO 09/17/2016 LAITH BECK MD, Ot Z79.84 VETERANS ADVISER (CURRENT) USE OF ORAL HYPOGLYC 09/17/2016 LAITH BECK MD, Ot Z79.899 OTHER SENIOR CARE (CURRENT) DRUG THERAPY 02/01/2017 DEMARIO LOPEZ MD, FACCP CCDS Ot E13.9 OTHER SPECIFIED DIABETES MELLITUS WITHOU 02/01/2017 DEMARIO LOPEZ MD, FACC FACP CCDS Ot I35.0 NONRHEUMATIC AORTIC (VALVE) STENOSIS 02/01/2017 DEMARIO LOPEZ MD, FACC FACP CCDS Ot I65.23 OCCLUSION AND STENOSIS OF BILATERAL [place] 02/01/2017 DEMARIO LOPEZ MD, FACC FACP CCDS Ot N18.3 CHRONIC KIDNEY DISEASE, STAGE 3 (MODERAT 02/01/2017 DEMARIO LOPEZ MD, FACC FACP CCDS Ot R06.09 OTHER FORMS OF DYSPNEA 02/02/2017 JOHN MD FACC, ALI FACP CCDS Ot E13.9 OTHER SPECIFIED DIABETES MELLITUS WITHOU 02/02/2017 JOHN MD FACC, ALI FACP CCDS Ot I35.0 NONRHEUMATIC AORTIC (VALVE) STENOSIS 02/02/2017 JOHN MD FACC, ALI FACP CCDS Ot I65.23 OCCLUSION AND STENOSIS OF [place] 02/02/2017 JOHN MD FACC, ALI FACP CCDS Ot N18.3 CHRONIC KIDNEY DISEASE, STAGE 3 (MODERAT 02/02/2017 JOHN LEMUS FACC, ALI FACP CCDS Ot R06.09 OTHER FORMS OF DYSPNEA 02/17/2017 JOHN LEMUS FACC, ALI FACP CCDS Ot E13.9 OTHER SPECIFIED DIABETES MELLITUS WITHOU 02/17/2017 JOHN MD FACC, ALI FACP CCDS Ot I35.0 NONRHEUMATIC AORTIC (VALVE) STENOSIS 02/17/2017 JOHN LEMUS FACC, ALI FACP CCDS Ot I65.23 OCCLUSION AND STENOSIS OF BILATERAL [place] 02/17/2017 JOHN LEMUS FACC, ALI FACP CCDS Ot N18.3 CHRONIC KIDNEY DISEASE, STAGE 3 (MODERAT 02/17/2017 JOHN LEMUS FACC, ALI FACP CCDS Ot R06.09 OTHER FORMS OF DYSPNEA 02/18/2017 EVERARDO LEMUS, THOMAS Carvalho Ot I65.23 OCCLUSION AND STENOSIS OF BILATERAL [place] 02/18/2017 OPAL BLUE GUNSTOCK REPAIRER Ot E11.9 TYPE 2 DIABETES MELLITUS WITHOUT COMPLIC 02/18/2017 KURTIS DIEGO MD Ot A41.9 SEPSIS, UNSPECIFIED ORGANISM 02/18/2017 KURTIS DIEGO MD Ot E03.9 HYPOTHYROIDISM, UNSPECIFIED 02/18/2017 KURTIS DIEGO MD Ot E11.21 TYPE 2 DIABETES MELLITUS WITH DIABETIC N 02/18/2017 KURTIS DIEGO MD Ot E11.42 TYPE 2 DIABETES MELLITUS WITH DIABETIC P 02/18/2017 KURTIS DIEGO MD, Ot E78.5 HYPERLIPIDEMIA, UNSPECIFIED 02/18/2017 KURTIS DIEGO MD Ot F32.9 MAJOR DEPRESSIVE DISORDER, SINGLE EPISOD 02/18/2017 KURTIS DIEGO MD Ot F41.9 ANXIETY DISORDER, UNSPECIFIED 02/18/2017 KURTIS DIEGO MD Ot 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 02/18/2017 KURTIS DIEGO MD, Ot I25.10 ATHSCL HEART DISEASE OF [place] CORONARY 02/18/2017 KURTIS DIEGO MD Ot I25.2 OLD MYOCARDIAL INFARCTION 02/18/2017 KURTIS DIEGO MD, Ot I25.5 ISCHEMIC CARDIOMYOPATHY 02/18/2017 KURTIS DIEGO MD, Ot I50.21 ACUTE SYSTOLIC (CONGESTIVE) HEART FAILUR 02/18/2017 KURTIS DIEGO MD, Ot I65.23 OCCLUSION AND STENOSIS OF BILATERAL [place] 02/18/2017 KURTIS DIEGO MD, Ot N18.3 CHRONIC KIDNEY DISEASE, STAGE 3 (MODERAT 02/18/2017 KURTIS DIEGO MD, Ot N39.0 URINARY TRACT INFECTION, SITE NOT SPECIF 02/18/2017 KURTIS DIEGO MD, Ot Z79.84 SENIOR CARE (CURRENT) USE OF ORAL HYPOGLYC 02/18/2017 KURTIS DIEGO MD, Ot Z82.49 FAMILY HX OF ISCHEM HEART DIS AND OTH DI 02/18/2017 KURTIS DIEGO MD, Ot Z96.653 PRESENCE OF ARTIFICIAL KNEE JOINT, BILAT 03/01/2017 JOHN LEMUS FACC, ALI FACP CCDS Ot E13.9 OTHER SPECIFIED DIABETES MELLITUS WITHOU 03/01/2017 JOHN LEMUS FACC, ALI FACP CCDS Ot I35.0 NONRHEUMATIC AORTIC (VALVE) STENOSIS 03/01/2017 JOHN LEMUS FACC, ALI FACP CCDS Ot I65.23 OCCLUSION AND STENOSIS OF BILATERAL [place] 03/01/2017 JOHN LEMUS FACC, ALI FACP CCDS Ot N18.3 CHRONIC KIDNEY DISEASE, STAGE 3 (MODERAT 03/01/2017 JOHN LEMUS FACC, ALI FACP CCDS Ot R06.09 OTHER FORMS OF DYSPNEA 05/07/2017 TANA OVIEDO MD Ot Z48.812 ENCNTR FOR SURGICAL AFTCR FOLLOWING SURG 05/07/2017 TANA OVIEDO MD Ot Z95.5 PRESENCE OF CORONARY ANGIOPLASTY IMPLANT 05/25/2017 KURTIS DIEGO MD, Ot E03.9 HYPOTHYROIDISM, UNSPECIFIED 05/25/2017 KURTIS DIEGO MD, Ot E11.21 TYPE 2 DIABETES MELLITUS WITH DIABETIC N 05/25/2017 KURTIS DIEGO MD, Ot 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 PERIPHERAL AN 05/25/2017 KURTIS DIEGO MD Ot E78.00 PURE HYPERCHOLESTEROLEMIA, UNSPECIFIED 05/25/2017 KURTIS DIEGO MD Ot F32.9 MAJOR DEPRESSIVE DISORDER, SINGLE EPISOD 05/25/2017 KURTIS DIEGO MD Ot F41.9 ANXIETY DISORDER, UNSPECIFIED 05/25/2017 KURTIS DIEGO MD Ot I08.3 COMB RHEUMATIC DISORD OF [place], AORTIC 05/25/2017 KURTIS DIEGO MD Ot I10 ESSENTIAL (PRIMARY) HYPERTENSION 05/25/2017 KURTIS DIEGO MD Ot I11.0 HYPERTENSIVE HEART DISEASE WITH HEART FA 05/25/2017 KURTIS DIEGO MD Ot I25.10 ATHSCL HEART DISEASE OF [place] CORONARY 05/25/2017 KURTIS DIEGO MD Ot I25.2 OLD MYOCARDIAL INFARCTION 05/25/2017 KURTIS DIEGO MD Ot I25.5 ISCHEMIC CARDIOMYOPATHY 05/25/2017 KURTIS DIEGO MD Ot I48.0 PAROXYSMAL ATRIAL FIBRILLATION 05/25/2017 KURTIS DIEGO MD Ot I50.23 ACUTE ON CHRONIC SYSTOLIC (CONGESTIVE) H 05/25/2017 KURTIS DIEGO MD, Ot I50.31 ACUTE DIASTOLIC (CONGESTIVE) HEART FAILU 05/25/2017 KURTIS DIEGO MD Ot I65.23 OCCLUSION AND STENOSIS OF [place]ILATERAL [place] 05/25/2017 KURTIS DIEGO MD Ot N18.3 CHRONIC KIDNEY DISEASE, STAGE 3 (MODERAT 05/25/2017 KURTIS DIEGO MD Ot Z79.84 VETERANS ADVISER (CURRENT) USE OF ORAL HYPOGLYC 05/25/2017 KURTIS DIEGO MD Ot Z82.49 FAMILY HX OF ISCHEM HEART DIS AND OTH DI 05/25/2017 KURTIS DIEGO MD Ot Z95.5 PRESENCE OF CORONARY ANGIOPLASTY IMPLANT 05/25/2017 KURTIS DIEGO MD Ot Z96.653 PRESENCE OF ARTIFICIAL KNEE JOINT, BILAT 05/26/2017 KURTIS DIEGO MD Ot E03.9 HYPOTHYROIDISM, UNSPECIFIED 05/26/2017 KURTIS DIEGO MD Ot E11.21 TYPE 2 DIABETES MELLITUS WITH DIABETIC N 05/26/2017 KURTIS DIEGO MD Ot 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 PERIPHERAL AN 05/26/2017 BRANDIE MD, KURTIS A Ot E78.00 PURE HYPERCHOLESTEROLEMIA, UNSPECIFIED 05/26/2017 KURTIS DIEGO MD Ot F32.9 MAJOR DEPRESSIVE DISORDER, SINGLE EPISOD 05/26/2017 KURTIS DIEGO MD Ot F41.9 ANXIETY DISORDER, UNSPECIFIED 05/26/2017 KURTIS DIEGO MD Ot I08.3 COMB RHEUMATIC DISORD OF [place], AORTIC 05/26/2017 KURTIS DIEGO MD Ot I10 ESSENTIAL (PRIMARY) HYPERTENSION 05/26/2017 KURTIS DIEGO MD Ot I11.0 HYPERTENSIVE HEART DISEASE WITH HEART FA 05/26/2017 KURTIS DIEGO MD Ot I25.10 ATHSCL HEART DISEASE OF [place] CORONARY 05/26/2017 KURTIS DIEGO MD Ot I25.2 OLD MYOCARDIAL INFARCTION 05/26/2017 KURTIS DIEGO MD Ot I25.5 ISCHEMIC CARDIOMYOPATHY 05/26/2017 KURTIS DIEGO MD Ot I48.0 PAROXYSMAL ATRIAL FIBRILLATION 05/26/2017 KURTIS DIEGO MD Ot I50.23 ACUTE ON CHRONIC SYSTOLIC (CONGESTIVE) H 05/26/2017 KURTIS DIEGO MD Ot I50.31 ACUTE DIASTOLIC (CONGESTIVE) HEART FAILU 05/26/2017 KURTIS DIEGO MD Ot I65.23 OCCLUSION AND STENOSIS OF [place]ILATERAL [place] 05/26/2017 KURTIS DIEGO MD, Ot N18.3 CHRONIC KIDNEY DISEASE, STAGE 3 (MODERAT 05/26/2017 KURTIS DIEGO MD, Ot Z79.84 SENIOR CARE (CURRENT) USE OF ORAL HYPOGLYC 05/26/2017 KURTIS DIEGO MD Ot Z82.49 FAMILY HX OF ISCHEM HEART DIS AND OTH DI 05/26/2017 KURTIS DIEGO MD Ot Z95.5 PRESENCE OF CORONARY ANGIOPLASTY IMPLANT 05/26/2017 KURTIS DIEGO MD Ot Z96.653 PRESENCE OF ARTIFICIAL KNEE JOINT, BILAT 05/26/2017 KURTIS DIEGO MD Ot E03.9 HYPOTHYROIDISM, UNSPECIFIED 05/26/2017 KURTIS DIEGO MD Ot E11.21 TYPE 2 DIABETES MELLITUS WITH DIABETIC N 05/26/2017 KURTIS DIEGO MD Ot 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 PERIPHERAL AN 05/26/2017 KURTIS DIEGO MD, Ot E78.00 PURE HYPERCHOLESTEROLEMIA, UNSPECIFIED 05/26/2017 KURTIS DIEGO MD Ot F32.9 MAJOR DEPRESSIVE DISORDER, SINGLE EPISOD 05/26/2017 KURTIS DIEGO MD Ot F41.9 ANXIETY DISORDER, UNSPECIFIED 05/26/2017 KURTIS DIEGO MD Ot I08.3 COMB RHEUMATIC DISORD OF [place], AORTIC 05/26/2017 KURTIS DIEGO MD Ot 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 FAIL AND ST 05/26/2017 KURTIS DIEGO MD Ot I25.10 ATHSCL HEART DISEASE OF [place] CORONARY 05/26/2017 KURTIS DIEGO MD Ot I25.2 OLD MYOCARDIAL INFARCTION 05/26/2017 KURTIS DIEGO MD Ot I25.5 ISCHEMIC CARDIOMYOPATHY 05/26/2017 KURTIS DIEGO MD Ot I48.0 PAROXYSMAL ATRIAL FIBRILLATION 05/26/2017 KURTIS DIEGO MD, Ot I50.23 ACUTE ON CHRONIC SYSTOLIC (CONGESTIVE) H 05/26/2017 KURTIS DIEGO MD Ot I50.31 ACUTE DIASTOLIC (CONGESTIVE) HEART FAILU 05/26/2017 KURTIS DIEGO MD Ot I65.23 OCCLUSION AND STENOSIS OF [place]ILATERAL [place] 05/26/2017 KURTIS DIEGO MD Ot J81.0 ACUTE PULMONARY EDEMA 05/26/2017 KURTIS DIEGO MD Ot N18.3 CHRONIC KIDNEY DISEASE, STAGE 3 (MODERAT 05/26/2017 KURTIS DIEGO MD Ot Z79.84 SENIOR CARE (CURRENT) USE OF ORAL HYPOGLYC 05/26/2017 KURTIS DIEGO MD Ot Z82.49 FAMILY HX OF ISCHEM HEART DIS AND OTH DI 05/26/2017 KURTIS DIEGO MD Ot Z95.5 PRESENCE OF CORONARY ANGIOPLASTY IMPLANT 05/26/2017 KURTIS DIEGO MD Ot Z96.653 PRESENCE OF ARTIFICIAL KNEE JOINT, BILAT 07/13/2017 TANA OVIEDO MD Ot Z48.812 ENCNTR FOR SURGICAL AFTCR FOLLOWING SURG 07/13/2017 TANA OVIEDO MD Ot Z95.5 PRESENCE OF CORONARY ANGIOPLASTY IMPLANT 07/14/2017 TANA OVIEDO MD Ot Z48.812 ENCNTR FOR SURGICAL AFTCR FOLLOWING SURG 07/14/2017 TANA OVIEDO MD Ot Z95.5 PRESENCE OF CORONARY ANGIOPLASTY IMPLANT Procedures Code Description Performed By Performed On [id number] MEASURE OF CARDIAC SAMPL PRESSURE, L H 02/18/2017 [id number] FLUOROSCOPY OF MULT COR ART USING L OSM 02/18/2017 [id number] FLUOROSCOPY OF LEFT HEART USING LOW OSMO 02/18/2017 [id number] FLUOROSCOPY OF ABDOMINAL AORTA USING LOW 02/18/2017 Results Test Result Range Arterial blood gas measurement - 02/18/17 00:00 Blood pCO2 44 mm[Hg] 35-45 Blood pO2 266 mm[Hg] 79-93 Arterial blood bicarbonate measurement (moles/volume) 19 mmol/L 23-27 Arterial blood base excess by calculation -7.8 mmol/L - 2.5-2.5 Arterial blood oxygen saturation measurement 100 % 94- 100 * Inhaled oxygen flow rate 80% NRG Arterial blood pH measurement with patient temperature correction 7.24 7.37-7.43 Arterial blood carbon dioxide, total measurement (moles/volume) 20.1 mmol/L 21.0-31.0 Body site L RAD NRG Assessment of wrist artery patency prior to arterial puncture YES- POS NRG Setting of ventilation mode NO NRG Measurement of body temperature 95.5 NRG Complete blood count (CBC) with automated white blood cell (WBC) differential - 02/18/17 04:23 Blood leukocytes automated count (number/volume) 12.1 10*3/uL 4.3-11.0 Blood erythrocytes automated count (number/volume) 4.39 10*6/uL 4.35-5.85 Venous blood hemoglobin measurement (mass/volume) 12.6 g/dL 11.5-16.0 Blood hematocrit (volume fraction) 39 % 35-52 Automated erythrocyte mean corpuscular volume 90 [foz_us] 80-99 Automated erythrocyte mean corpuscular hemoglobin (mass per erythrocyte) 29 pg 25-34 Automated erythrocyte mean corpuscular hemoglobin concentration measurement ( mass/volume) 32 g/dL 32-36 Automated erythrocyte distribution width ratio 14.2 % 10.0-14.5 Automated blood platelet count (count/volume) 500 10*3/uL 130-400 Automated blood platelet mean volume measurement 10.5 [foz_us] 7.4-10.4 Automated blood neutrophils/100 leukocytes 55 % 42-75 Automated blood lymphocytes/100 leukocytes 40 % 12-44 Blood monocytes/100 leukocytes 3 % 0-12 Automated blood eosinophils/100 leukocytes 1 % 0-10 Automated blood basophils/100 leukocytes 1 % 0-10 Blood neutrophils automated count (number/volume) 6.7 10*3 1.8-7.8 Blood lymphocytes automated count (number/volume) 4.9 10*3 1.0-4.0 Blood monocytes automated count (number/volume) 0.4 10*3 0.0-1.0 Automated eosinophil count 0.1 10*3/uL 0.0-0.3 Automated blood basophil count (count/volume) 0.1 10*3/uL 0.0-0.1 PT panel in platelet poor plasma by coagulation assay - 02/18/17 04:23 Prothrombin time (PT) in platelet poor plasma by coagulation assay 12.8 s 12.2-14.7 INR in platelet poor plasma or blood by coagulation assay 1.0 0.8-1.4 Activated partial thromboplastin time (aPTT) in platelet poor plasma bycoagulation assay - 02/18/17 04:23 Activated partial thromboplastin time (aPTT) in platelet poor plasma bycoagulation assay 30 s 24-35 Serum or plasma C reactive protein measurement (mass/volume) - 02/18/17 04:23 Serum or plasma C reactive protein measurement (mass/volume) 0.25 mg /dL 0.00-0.50 Comprehensive metabolic panel - 02/18/17 04:23 Serum or plasma sodium measurement (moles/volume) 136 mmol/L 135-145 Serum or plasma potassium measurement (moles/volume) 3.6 mmol/L 3.6-5.0 Serum or plasma chloride measurement (moles/volume) 101 mmol/L 98-107 Carbon dioxide 19 mmol/L 21-32 Serum or plasma anion gap determination (moles/volume) 16 mmol/L 5-14 Serum or plasma urea nitrogen measurement (mass/volume) 23 mg/dL 7-18 Serum or plasma creatinine measurement (mass/volume) 1.28 mg/dL 0.60-1.30 Serum or plasma urea nitrogen/creatinine mass ratio 18 NRG Serum or plasma creatinine measurement with calculation of estimated glomerular filtration rate 41 NRG Serum or plasma glucose measurement (mass/volume) 388 mg/dL 70-105 Serum or plasma calcium measurement (mass/volume) 8.8 mg/dL 8.5-10.1 Serum or plasma total bilirubin measurement (mass/volume) 0.4 mg/dL 0.1-1.0 Serum or plasma alkaline phosphatase measurement (enzymatic activity/volume) 78 U/L 40-136 Serum or plasma aspartate aminotransferase measurement (enzymatic activity/ volume) 40 U/L 5-34 Serum or plasma alanine aminotransferase measurement (enzymatic activity/volume ) 57 U/L 0-55 Serum or plasma protein measurement (mass/volume) 6.7 g/dL 6.4-8.2 Serum or plasma albumin measurement (mass/volume) 4.1 g/dL 3.2-4.5 Magnesium - 02/18/17 04:23 Magnesium 2.2 mg/dL 1.8-2.4 Serum or plasma lithium measurement (moles/volume) - 02/18/17 04:23 BNP level 2963.7 pg/mL <100.0 Serum or plasma troponin i.cardiac measurement (mass/volume) - 02/18/17 04:23 Serum or plasma troponin i.cardiac measurement (mass/volume) < ng/ mL <0.30 Myoglobin, serum - 02/18/17 04:23 Myoglobin, serum 53.3 ng/mL 10.0-92.0 Blood lactic acid measurement (moles/volume) - 02/18/17 04:30 Blood lactic acid measurement (moles/volume) 4.01 mmol/L 0.50-2.00 THYROID STIMULATING HORMONE - 02/18/17 04:30 THYROID STIMULATING HORMONE 2.54 u[iU]/mL 0.35-4.94 Serum or plasma thyroxine (T4) free measurement (mass/volume) - 02/18/17 04:30 Serum or plasma thyroxine (T4) free measurement (mass/volume) 1.06 ng/dL 0.70-1.48 Bacterial blood culture - 02/18/17 04:30 Bacterial blood culture NG NRG Bacterial blood culture - 02/18/17 05:18 Bacterial blood culture NG NRG Complete urinalysis with reflex to culture - 02/18/17 05:32 Urine color determination YELLOW NRG Urine clarity determination CLOUDY NRG Urine pH measurement by test strip 5 5-9 Specific gravity of urine by test strip 1.020 1.016- 1.022 Urine protein assay by test strip, semi-quantitative 3+ NEGATIVE Urine glucose detection by automated test strip 3+ NEGATIVE Erythrocytes detection in urine sediment by light microscopy NEGATIVE NEGATIVE Urine ketones detection by automated test strip NEGATIVE NEGATIVE Urine nitrite detection by test strip POSITIVE NEGATIVE Urine total bilirubin detection by test strip NEGATIVE NEGATIVE Urine urobilinogen measurement by automated test strip (mass/volume) NORMAL NORMAL Urine leukocyte esterase detection by dipstick NEGATIVE NEGATIVE Automated urine sediment erythrocyte count by microscopy (number/high power field) NONE NRG Automated urine sediment leukocyte count by microscopy (number/high power field ) RARE NRG Bacteria detection in urine sediment by light microscopy LARGE NRG Squamous epithelial cells detection in urine sediment by light microscopy NONE NRG Crystals detection in urine sediment by light microscopy NONE NRG Casts detection in urine sediment by light microscopy PRESENT NRG Mucus detection in urine sediment by light microscopy NEGATIVE NRG Complete urinalysis with reflex to culture YES NRG Hyaline casts detection in urine sediment by light microscopy 0-2 NRG Bacterial urine culture - 02/18/17 05:32 Bacterial urine culture [id number] NRG COLONY COUNT >100,000/ML NRG FTX;REPORTABLE 3 DIFFERENT COLONY TYPES OBSERVED NRG URINE CULTURE RESULTS PLUS NRG FREE TEXT ENTRY 2 COMBINED SENSITIVITY REPORTED AT 1120, NR FREE TEXT ENTRY 3 02-20-17 NR Bacterial susceptibility panel - 02/18/17 05:32 Gentamicin susceptibility test by minimum inhibitory concentration < = NRG Trimethoprim/sulfamethoxazole susceptibility test by minimum inhibitoryconcentration <= NRG Ampicillin susceptibility test by minimum inhibitory concentration > = NRG Tobramycin susceptibility test by minimum inhibitory concentration < = NRG Cefazolin susceptibility test by minimum inhibitory concentration < = NRG Ceftriaxone susceptibility test by minimum inhibitory concentration <= NRG Ampicillin/sulbactam susceptibility test by minimum inhibitory concentration S NRG Ciprofloxacin susceptibility test by minimum inhibitory concentration <= NRG Meropenem susceptibility test by minimum inhibitory concentration < = NRG Nitrofurantoin susceptibility test by minimum inhibitory concentration 256 NRG Aztreonam susceptibility test by minimum inhibitory concentration < = NRG Extended spectrum beta lactamase (ESBL) producing bacteria susceptibility test by minimum inhibitory concentration - NR Methicillin resistant Staphylococcus aureus (MRSA) screening culture - 07:00 Methicillin resistant Staphylococcus aureus (MRSA) screening culture NEG NRG Serum or plasma lactate measurement (moles/volume) - 02/18/17 07:11 Serum or plasma lactate measurement (moles/volume) 1.07 mmol/L 0.50-2.00 Lipid 1996 panel - 02/18/17 07:11 Serum or plasma triglyceride measurement (mass/volume) 195 mg/dL <150 Serum or plasma cholesterol measurement (mass/volume) 211 mg/dL < 200 Serum or plasma cholesterol in HDL measurement (mass/volume) 41 mg/ dL 40-60 Cholesterol in LDL [mass/volume] in serum or plasma by direct assay 141 mg/dL 1-129 Serum or plasma cholesterol in VLDL measurement (mass/volume) 39 mg/ dL 5-40 Complete blood count (CBC) with automated white blood cell (WBC) differential - 05/25/17 01:05 Blood leukocytes automated count (number/volume) 6.6 10*3/uL 4.3-11.0 Blood erythrocytes automated count (number/volume) 4.09 10*6/uL 4.35-5.85 Venous blood hemoglobin measurement (mass/volume) 11.3 g/dL 11.5-16.0 Blood hematocrit (volume fraction) 35 % 35-52 Automated erythrocyte mean corpuscular volume 86 [foz_us] 80-99 Automated erythrocyte mean corpuscular hemoglobin (mass per erythrocyte) 28 pg 25-34 Automated erythrocyte mean corpuscular hemoglobin concentration measurement ( mass/volume) 32 g/dL 32-36 Automated erythrocyte distribution width ratio 14.9 % 10.0-14.5 Automated blood platelet count (count/volume) 401 10*3/uL 130-400 Automated blood platelet mean volume measurement 10.1 [foz_us] 7.4-10.4 Automated blood neutrophils/100 leukocytes 59 % 42-75 Automated blood lymphocytes/100 leukocytes 36 % 12-44 Blood monocytes/100 leukocytes 3 % 0-12 Automated blood eosinophils/100 leukocytes 2 % 0-10 Automated blood basophils/100 leukocytes 0 % 0-10 Blood neutrophils automated count (number/volume) 3.9 10*3 1.8-7.8 Blood lymphocytes automated count (number/volume) 2.4 10*3 1.0-4.0 Blood monocytes automated count (number/volume) 0.2 10*3 0.0-1.0 Automated eosinophil count 0.1 10*3/uL 0.0-0.3 Automated blood basophil count (count/volume) 0.0 10*3/uL 0.0-0.1 Comprehensive metabolic panel - 05/25/17 01:05 Serum or plasma sodium measurement (moles/volume) 140 mmol/L 135-145 Serum or plasma potassium measurement (moles/volume) 4.4 mmol/L 3.6-5.0 Serum or plasma chloride measurement (moles/volume) 106 mmol/L 98-107 Carbon dioxide 22 mmol/L 21-32 Serum or plasma anion gap determination (moles/volume) 12 mmol/L 5-14 Serum or plasma urea nitrogen measurement (mass/volume) 18 mg/dL 7-18 Serum or plasma creatinine measurement (mass/volume) 1.19 mg/dL 0.60-1.30 Serum or plasma urea nitrogen/creatinine mass ratio 15 NRG Serum or plasma creatinine measurement with calculation of estimated glomerular filtration rate 44 NRG Serum or plasma glucose measurement (mass/volume) 148 mg/dL 70-105 Serum or plasma calcium measurement (mass/volume) 9.4 mg/dL 8.5-10.1 Serum or plasma total bilirubin measurement (mass/volume) 0.3 mg/dL 0.1-1.0 Serum or plasma alkaline phosphatase measurement (enzymatic activity/volume) 70 U/L 40-136 Serum or plasma aspartate aminotransferase measurement (enzymatic activity/ volume) 54 U/L 5-34 Serum or plasma alanine aminotransferase measurement (enzymatic activity/volume ) 43 U/L 0-55 Serum or plasma protein measurement (mass/volume) 7.0 g/dL 6.4-8.2 Serum or plasma albumin measurement (mass/volume) 4.4 g/dL 3.2-4.5 Magnesium - 05/25/17 01:05 Magnesium 2.0 mg/dL 1.8-2.4 Serum or plasma troponin i.cardiac measurement (mass/volume) - 05/25/17 01:05 Serum or plasma troponin i.cardiac measurement (mass/volume) < ng/ mL <0.30 Fibrin D-dimer FEU measurement in platelet poor plasma (mass/volume) - 01:05 Fibrin D-dimer FEU measurement in platelet poor plasma (mass/volume) 1.12 ug/mL 0.00-0.49 Serum or plasma lithium measurement (moles/volume) - 05/25/17 01:05 BNP level 1370.1 pg/mL <100.0 Methicillin resistant Staphylococcus aureus (MRSA) screening culture - 05:25 Methicillin resistant Staphylococcus aureus (MRSA) screening culture NEG [facility] Capillary blood glucose measurement by glucometer (mass/volume) - 05/25/17 06: 02 Capillary blood glucose measurement by glucometer (mass/volume) 181 mg/dL 70-110 Serum or plasma troponin i.cardiac measurement (mass/volume) - 05/25/17 07:39 Serum or plasma troponin i.cardiac measurement (mass/volume) < ng/ mL <0.30 Myoglobin, serum - 05/25/17 07:39 Myoglobin, serum 53.3 ng/mL 10.0-92.0 Lipid 1996 panel - 05/25/17 07:39 Serum or plasma triglyceride measurement (mass/volume) 174 mg/dL <150 Serum or plasma cholesterol measurement (mass/volume) 197 mg/dL < 200 Serum or plasma cholesterol in HDL measurement (mass/volume) 41 mg/ dL 40-60 Cholesterol in LDL [mass/volume] in serum or plasma by direct assay 130 mg/dL 1-129 Serum or plasma cholesterol in VLDL measurement (mass/volume) 35 mg/ dL 5-40 THYROID STIMULATING HORMONE - 05/25/17 07:39 THYROID STIMULATING HORMONE 1.24 u[iU]/mL 0.35-4.94 Capillary blood glucose measurement by glucometer (mass/volume) - 05/25/17 11: 00 Capillary blood glucose measurement by glucometer (mass/volume) 156 mg/dL 70-110 Serum or plasma troponin i.cardiac measurement (mass/volume) - 05/25/17 13:10 Serum or plasma troponin i.cardiac measurement (mass/volume) < ng/ mL <0.30 Capillary blood glucose measurement by glucometer (mass/volume) - 05/25/17 16: 03 Capillary blood glucose measurement by glucometer (mass/volume) 239 mg/dL 70-110 Capillary blood glucose measurement by glucometer (mass/volume) - 05/25/17 20: 12 Capillary blood glucose measurement by glucometer (mass/volume) 138 mg/dL 70-110 Complete blood count (CBC) with automated white blood cell (WBC) differential - 05/26/17 03:15 Blood leukocytes automated count (number/volume) 5.9 10*3/uL 4.3-11.0 Blood erythrocytes automated count (number/volume) 4.12 10*6/uL 4.35-5.85 Venous blood hemoglobin measurement (mass/volume) 11.5 g/dL 11.5-16.0 Blood hematocrit (volume fraction) 35 % 35-52 Automated erythrocyte mean corpuscular volume 85 [foz_us] 80-99 Automated erythrocyte mean corpuscular hemoglobin (mass per erythrocyte) 28 pg 25-34 Automated erythrocyte mean corpuscular hemoglobin concentration measurement ( mass/volume) 33 g/dL 32-36 Automated erythrocyte distribution width ratio 14.6 % 10.0-14.5 Automated blood platelet count (count/volume) 393 10*3/uL 130-400 Automated blood platelet mean volume measurement 10.5 [foz_us] 7.4-10.4 Automated blood neutrophils/100 leukocytes 57 % 42-75 Automated blood lymphocytes/100 leukocytes 35 % 12-44 Blood monocytes/100 leukocytes 6 % 0-12 Automated blood eosinophils/100 leukocytes 2 % 0-10 Automated blood basophils/100 leukocytes 0 % 0-10 Blood neutrophils automated count (number/volume) 3.4 10*3 1.8-7.8 Blood lymphocytes automated count (number/volume) 2.0 10*3 1.0-4.0 Blood monocytes automated count (number/volume) 0.4 10*3 0.0-1.0 Automated eosinophil count 0.1 10*3/uL 0.0-0.3 Automated blood basophil count (count/volume) 0.0 10*3/uL 0.0-0.1 Whole blood basic metabolic panel - 05/26/17 03:15 Serum or plasma sodium measurement (moles/volume) 140 mmol/L 135-145 Serum or plasma potassium measurement (moles/volume) 4.0 mmol/L 3.6-5.0 Serum or plasma chloride measurement (moles/volume) 103 mmol/L 98-107 Carbon dioxide 24 mmol/L 21-32 Serum or plasma anion gap determination (moles/volume) 13 mmol/L 5-14 Serum or plasma urea nitrogen measurement (mass/volume) 19 mg/dL 7-18 Serum or plasma creatinine measurement (mass/volume) 1.11 mg/dL 0.60-1.30 Serum or plasma urea nitrogen/creatinine mass ratio 17 NRG Serum or plasma creatinine measurement with calculation of estimated glomerular filtration rate 48 NRG Serum or plasma glucose measurement (mass/volume) 148 mg/dL 70-105 Serum or plasma calcium measurement (mass/volume) 9.0 mg/dL 8.5-10.1 Serum or plasma phosphate measurement (mass/volume) - 05/26/17 03:15 Serum or plasma phosphate measurement (mass/volume) 5.0 mg/dL 2.3-4.7 Magnesium - 05/26/17 03:15 Magnesium 1.9 mg/dL 1.8-2.4 Digoxin - 05/26/17 03:15 Digoxin 0.74 ng/mL 0.80-2.00 Encounters ACCT No. Visit Date/Time Discharge Status Pt. Type Provider Facility Loc./Unit Complaint [id number] 08/13/2017 09:10:00 08/13/2017 23:59:59 CLS Outpatient TANA OVIEDO MD [facility] CR STENT [id number] 07/14/2017 08:00:00 07/14/2017 23:59:59 CLS Preadmit TANA OVIEDO MD [facility] CR STENT [id number] 07/09/2017 09:37:00 07/13/2017 00:01:00 DIS Outpatient TANA OVIEDO MD [facility] CR STENT [id number] 05/31/2017 13:00:00 05/31/2017 23:59:59 CLS Preadmit DEMARIO LOPEZ MD, FACC, FACP CCDS [facility] CARD I48.0 PAF [id number] 05/25/2017 04:25:00 05/26/2017 11:10:00 DIS Inpatient KURTIS DIEGO MD [facility] ICU A-FIB RVR, CHEST PAIN, PULMONARY EDEMA [id number] 02/23/2017 09:00:00 02/23/2017 23:59:59 CLS Preadmit JOHN LEMUS FACC ALI FACMaia CCDS [facility] CATH CAD,DM,ANGINA [id number] 02/18/2017 05:32:00 02/18/2017 14:20:00 DIS Inpatient KURTIS DIEGO MD [facility] ICU ACUTE CHF,CHEST PAIN, RESP DISTRESS [id number] 01/12/2017 07:28:00 01/12/2017 23:59:59 CLS Outpatient JOHN LEMUS FACC, DEMARIO ALLEN CCDS [facility] CARD I35.0 [id number] 01/08/2017 08:30:00 01/08/2017 23:59:59 CLS Outpatient JOHN LEMUS FACC, DEMARIO FACMaia CCDS [facility] I35.0 [id number] 08/03/2016 14:01:00 08/03/2016 23:59:59 CLS Outpatient LAITH BECK MD [facility] DISC DISORDER [id number] 03/26/2016 10:00:00 03/26/2016 23:59:59 CLS Preadmit OPAL BLUE APRN [facility] TYPE 2 DIABETES, UNCONTROLLED DIABETES [id number] 12/26/2015 09:46:00 03/25/2016 00:01:00 DIS Outpatient OPAL BLUE APRN [facility] TYPE 2 DIABETES, UNCONTROLLED DIABETES [id number] 12/20/2015 07:57:00 12/20/2015 23:59:59 CLS Outpatient LAITH BECK MD [facility] DISC DISORDER [id number] 11/19/2015 08:55:00 11/19/2015 23:59:59 CLS Outpatient VINEET DASILVA [facility] [id number] 08/09/2015 10:15:00 08/09/2015 23:59:59 CLS Preadmit THOMAS MCGEE MD [facility] DIZZINESS, VISUAL CHANGES SEVERE HEADACHES [id number] 06/03/2015 09:05:00 08/08/2015 00:01:00 DIS Outpatient THOMAS MCGEE MD [facility] DIZZINESS, VISUAL CHANGES SEVERE HEADACHES [id number] 07/19/2015 07:43:00 07/19/2015 08:58:00 DIS Outpatient LAITH BECK MD [facility] DISC DISORDER [id number] 07/15/2015 11:45:00 07/15/2015 13:42:00 DIS Outpatient LAITH BECK MD [facility] DISC DISORDER W/ RADICULOPATHY [id number] 04/01/2015 13:41:00 04/01/2015 23:59:59 CLS Outpatient JOHN LEMUS FACC, ALI FACP CCDS [facility] CARD VERITGO [id number] 03/23/2015 12:22:00 03/23/2015 15:00:00 DIS Emergency FORMANZORAIDA GREER Catalino PAGANN [facility] ER DIZZINESS/NAUSEA [id number] 01/04/2015 09:15:00 01/04/2015 10:15:00 DIS Outpatient LAITH BECK MD [facility] CARD OTHER INTERVETREBRAL DISC DISPLACEMENT [id number] 11/26/2014 07:35:00 11/26/2014 23:59:59 CLS Outpatient GALE MENDEZ MD [facility] RAD RADICULOPATHY [id number] 11/15/2014 09:11:00 11/15/2014 23:59:59 CLS Outpatient GALE MENDEZ MD [facility] RAD RADICULOPATHY [id number] 06/13/2014 08:56:00 06/13/2014 23:59:59 CLS Outpatient JOHN LEMUS FACC, ALI FACP CCDS [facility] RAD BILAT LEG FOOT PAIN, DIABETES [id number] 06/12/2014 08:18:00 06/12/2014 23:59:59 CLS Outpatient JOHN LEMUS FACC, ALI FACP CCDS [facility] CARD CHEST DISCOMFORT, AORTIC STENOSIS [id number] 11/06/2013 09:23:00 11/06/2013 23:59:59 CLS Outpatient HENRY BAIG MD [facility] RAD SCREENING [id number] 06/08/2014 17:37:00 Document Registration [id number] 04/04/2012 15:58:00 Document Registration [id number] 12/30/2011 06:47:00 Document Registration [id number] 08/17/2011 12:51:00 Document Registration [id number] 08/07/2010 12:49:00 Document Registration [id number] 08/12/2016 08:25:00 08/12/2016 23:59:00 DIS Outpatient JAZZ YOUNG [id number] 07/01/2016 11:16:00 07/01/2016 23:59:00 DIS Outpatient JAZZ YOUNG [id number] 11/26/2014 07:36:38 ACT Document Registration [id number] 01/29/2017 23:15:46 01/29/2017 23:59:59 CLS Outpatient
[2017-08-25] MEDS ORDERED: HYDROcodone/APAP 5 MG/325 MG (LORTAB) TAB PO ONE (06:00)
--- NOTE | 2017-08-25 06:05 | ED Lower Extremity ---
General Chief Complaint: Lower Extremity Stated Complaint: PAIN IN LEFT LEG,NOT SLEEPING Source: patient, spouse Exam Limitations: no limitations (BRITTANY PENA) History of Present Illness Date Seen by Provider: Aug 25, 2017 Time Seen by Provider: 05:50 Initial Comments The patient presents to the ER by private conveyance with her and a chief complaint that she is for the past 3 or 4 days been experiencing worsening left hip pain. She's had no falls. She has a history of osteoarthritis in all of her joints including her left hip. She feels that the pain gets better the more she moves around on it but never goes away. It is currently a 10 out of 10. She's been using Tylenol appropriately as well as Aleve 2 capsules twice a day. She is on Eliquis with a history of cardiac stent 1. She has some bruising on her leg, around her knees and forearms and right shoulder where she had a previous surgery but no swelling of her joint. She is able to move her leg to full range of motion at the hip albeit painfully. She's never had that hip injected but she has had knees injected with steroids. She made an appointment with Dr. Kowalski her orthopedic surgeon who did her shoulder and knees but he is out of town and her appointment is not until September 21. She does not want to use opiates or tramadol if she can avoid this. She has not been on steroids since having her knees done. (BRITTANY PENA) Allergies and Home Medications Allergies Coded Allergies: canagliflozin (Verified Allergy, Severe, LIGHT HEADED/HEADACHES/UTI/FELT LIKE SHE WOULD PASS OUT, 02/18/17) liraglutide (Verified Allergy, Severe, RAPID HEART RATE/HEADACHE/DIZZINESS , 02/18/17) Vuxghda-Hki-Lze Reductase Inhibitor (Verified Adverse Reaction, Severe, MUSCLE PAIN, 02/18/17) Home Medications Acetaminophen/Diphenhydramine 1 Each Tablet, 1 TAB PO HS, (Reported) Apixaban 5 Mg Tablet, 5 MG PO BID, (Reported) Diclofenac Sodium 100 Gm Gel..gram., 100 GM TP TID Prescribed by: TUNDE BARROW on 08/25/17 0636 Digoxin 250 Mcg Tablet, 0.25 MG PO DAILY Prescribed by: KURTIS DIEGO on 05/26/17 0815 Escitalopram Oxalate 5 Mg Tablet, 5 MG PO DAILY, (Reported) Ezetimibe 10 Mg Tablet, 10 MG PO HS, (Reported) Fluticasone Propionate 16 Gm [place].susp, 1 SPRAY NS BID PRN for ALLERGIES, ( Reported) Furosemide 40 Mg Tablet, 40 MG PO DAILY Prescribed by: KURTIS DIEGO on 05/26/17814 Gabapentin 600 Mg Tablet, 600 MG PO TID, (Reported) Insulin Glargine,Hum.rec.anlog 100 Unit/1 Ml Insuln.pen, 10 UNIT SQ DAILY, ( Reported) Levothyroxine Sodium 50 Mcg Tablet, 50 MCG PO DAILY, (Reported) Metformin HCl 500 Mg Tablet, 500 MG PO HS, (Reported) Metformin HCl 500 Mg Tablet, 750 MG PO 0700,1200, (Reported) TAKES 1 & 1/2 (500MG) TABLETS Methylprednisolone 4 Mg Tab.ds.pk, 4 MG PO UD Prescribed by: TUNDE BARROW on 08/25/17635 Metoprolol Succinate 100 Mg Tab.er.24h, 100 MG PO DAILY Prescribed by: KURTIS DIEGO on 05/26/17814 [place] 3 Polyunsat Fatty Acids 1,000 Mg Cap, 1,000 MG PO DAILY, (Reported) Pantoprazole Sodium 40 Mg Tablet.dr, 40 MG PO DAILY, (Reported) Potassium Chloride 20 Meq Tab.er.prt, 20 MEQ PO DAILY@0700 Prescribed by: KURTIS DIEGO on 05/26/17814 Prasugrel HCl 10 Mg Tablet, 10 MG PO DAILY, (Reported) Sacubitril/Valsartan 1 Each Tablet, 1 TAB PO BID, (Reported) Tramadol HCl 50 Mg Tablet, 50 MG PO Q4H Prescribed by: TUNDE BARRWO on 08/25/17635 [Nitroglycerin] 0.4 MG BTL, 0 MG SL PRN PRN for CHEST PAIN Prescribed by: KURTIS DIEGO on 05/26/17814 Patient Home Medication List Home Medication List Reviewed: Yes (BRITTANY PENA) Constitutional: No chills, No diaphoresis, No fever EENTM: No ear discharge Respiratory: No cough, No short of breath Cardiovascular: No chest pain, No edema Gastrointestinal: No abdominal pain, No constipation, No diarrhea, No dysphagia Musculoskeletal: see HPI; No back pain; joint pain (BRITTANY PENA) Past Wjftxii-Eljwqg-Agheqk Hx Patient Social History Alcohol Use: Rarely Uses Recreational Drug Use: No Smoking Status: Never a Smoker 2nd Hand Smoke Exposure: No Recent Foreign Travel: No Contact w/Someone Who Travel: No Recent Hopitalizations: No (BRITTANY PENA) Immunizations Up To Date Tetanus Booster (TDap): Unknown Date of Pneumonia Vaccine: Feb 14, 2018 Date of Influenza Vaccine: Dec 16, 2015 (BRITTANY PENA) Seasonal Allergies Seasonal Allergies: Yes (BRITTANY PENA) Past Medical History Surgeries: Yes (bilat TKR, bilat carpal tunnel) Bladder Surgery, Coronary Stent, Hysterectomy, Orthopedic, Tonsillectomy Respiratory: No Cardiac: Yes (aortic stenosis, carotid stenosis, cardiac stent) Coronary Artery Disease, High Cholesterol, Hypertension, Peripheral Vascular, Valvular Heart Disease Neurological: No Genitourinary: Yes UTI-Chronic Gastrointestinal: No Musculoskeletal: No Endocrine: Yes Diabetes, Non-Insulin dep HEENT: No Loss of Vision: Denies Hearing Impairment: Denies Cancer: No Psychosocial: Yes Anxiety, Depression Integumentary: No Blood Disorders: No (BRITTANY PENA) Family Medical History Patient reports no known family medical history. Heart Disease, Hypertension (BRITTANY PENA) Physical Exam Vital Signs Vital Signs - First Documented 08/25/17 05:35 Temp 97.2 Pulse 81 Resp 20 B/P (MAP) 153/103 (120) Pulse Ox 98 O2 Delivery Room Air (FREDERIC,TUNDE K DO) Vital Signs Capillary Refill : (BRITTANY PENA) General Appearance: WD/WN, mild distress HEENT: PERRL/EOMI, pharynx normal Cardiovascular: normal peripheral pulses, regular rate, rhythm, systolic murmur Respiratory: no respiratory distress, no accessory muscle use Hips: bilateral hip normal inspection, bilateral hip normal range of motion; left hip pain, left hip other (no palpable effusion or crepitus on full range of motion but she does have pain.) Legs: bilateral leg non-tender, bilateral leg normal inspection, bilateral leg normal range of motion, bilateral leg no evidence of injury Neurologic/Tendon: normal sensation, normal motor functions, normal tendon functions, responds to pain, no evidence tendon injury Neurologic/Psychiatric: alert, normal mood/affect, oriented x 3 Skin: ecchymosis (various ecchymoses on all 4 extremities in different stages of healing) (BRITTANY PENA) Progress/Results/Core Measures Results/Orders Medications Given in ED Current Medications Medications Dose Ordered Sig/Jose Enrique Route Start Time Stop Time Status Last Admin Dose Admin Acetaminophen/ Hydrocodone Bitart 1 tab ONCE ONCE PO 08/25/17 06:00 08/25/17 06:01 DC 08/25/17 06:05 1 TAB (TUNDE BARROW DO) Vital Signs/I&O 08/25/17 08/25/17 05:35 06:37 Temp 97.2 Pulse 81 78 Resp 20 18 B/P (MAP) 153/103 (120) 137/92 Pulse Ox 98 98 O2 Delivery Room Air (TUNDE BARROW DO) Progress Progress Note : Time: : Progress Note Plain film of left hip looking for possible occult nontraumatic fracture. If no fracture that he'll be reasonable to put her out on steroids and follow up with the PCP in a week. She has an appointment on September 21 with her orthopedic surgeon. Historically and clinically appears to be osteoarthritis exacerbation. (BRITTANY PENA) Progress Note : Progress Note ASSUMED CARE FROM DR. PENA. REVIEWED [facility] OFFERED ADDITIONAL PAIN MEDICATION SUCH A SHOT OF TORADOL AND PT DECLINES PT DECLINES ANY NARCOTIC PAIN MEDICATION RX TO TAKE AT HOME, BUT AGREED TO A SINGLE PILL HERE. SHE IS AGREEABLE TO ULTRAM. WILL ALSO ADD PREDNISONE AND VOLTAREN GEL PT STATES SHE HAS A WALKER AT HOME AND ADVISED HER TO USE IT TO PREVENT FALLING PT HAS AN APPOINTMENT WITH DR WRIGHT 09/21/17, HE IS OUT OF TOWN FOR THE NEXT 2 WEEKS HAS AN APPOINTMENT WITH DR. DIEGO , BUT HAS BEEN TRYING TO GET IN SOONER PT AMBULATED OUT OF ER WITHOUT ASSIST, WITHOUT DIFFICULTY (TUNDE BARROW DO) Diagnostic Imaging Comments X[facility]--LEFT HIP--NO ACUTE PROCESS, ARTHRITIC CHANGES, PENDING RADIOLOGIST REVIEW Reviewed: Reviewed by Me (TUNDE BARROW DO) Transfer of Care Time: :13 Care transferred to: Frederic (BRITTANY PENA) Departure Impression Primary Impression: Osteoarthritis Qualified Codes: M16.12 - Unilateral primary osteoarthritis, left hip Additional Impression: Chronic left hip pain Disposition: HOME, SELF-CARE Condition: Stable Departure-Patient Inst. Referrals: KURTIS DIEGO MD (PCP/Family) Primary Care Physician Patient Instructions: Hip Pain (DC) Add. Discharge Instructions: TYLENOL PM FOR SLEEP FOLLOW UP WITH DR. KOWALSKI SCHEDULED FOLLOW UP WITH DR. DIEGO THIS WEEK FOR FURTHER CARE All discharge instructions reviewed with patient and/or family. Voiced understanding. Scripts Diclofenac Sodium (Voltaren) 100 Gm Gel..gram. 100 GM TP TID, #1 TUBE Prov: TUNDE BARROW DO 08/25/17 Tramadol HCl (Ultram) 50 Mg Tablet 50 MG PO Q4H, #20 TAB Prov: TUNDE BARROW DO 08/25/17 Methylprednisolone (Medrol) 4 Mg Tab.ds.pk 4 MG PO UD, #1 PKG Prov: TUNDE BARROW DO 08/25/17 Copy Copies To 1: KURTIS DIEGO MD, TITUS J Aug 25, 2017 06:05 TUNDE BARROW DO Aug 25, 2017 06:36
[2017-08-25] MEDS ORDERED: DICL100G18 TP (06:36)
[2017-08-25] MEDS ORDERED: METH4TAB PO (06:36)
[2017-08-25] MEDS ORDERED: TRAM-42 PO (06:36)
[2017-08-25 06:37] VITALS: BP 137/92
--- NOTE | 2017-08-25 08:16 | Diagnostic Imaging Report ---
PATIENT HISTORY: Left hip pain, worse for the last 3 days. TECHNIQUE: 2 views of the left hip COMPARISON: None FINDINGS: No acute fracture or dislocation is seen in the left hip. There are mild degenerative changes in the left hip. There is mild enthesopathy at the left greater trochanter. Multiple phleboliths are seen. There is moderate atherosclerosis. IMPRESSION: Mild degenerative changes in the left hip with no acute osseous abnormality seen. Dictated by: Dictated on workstation # [id number]
== END 2017-08-25 06:42 | disposition home or self-care (01) ==
LOC: EDUNIT# 05:18 → ER 05:20
DX: M16.12 Unilateral primary osteoarthritis, left hip (principal); F41.9 Anxiety disorder, unspecified; F32.9 Major depressive disorder, single episode, unspecified; E11.9 Type 2 diabetes mellitus without complications; I25.10 Atherosclerotic heart disease of native coronary artery without angina pectoris; E78.00 Pure hypercholesterolemia, unspecified; Z95.5 Presence of coronary angioplasty implant and graft; Z90.710 Acquired absence of both cervix and uterus; Z90.89 Acquired absence of other organs; Z98.890 Other specified postprocedural states; Z79.4 Long term (current) use of insulin; Z79.51 Long term (current) use of inhaled steroids; Z88.6 Allergy status to analgesic agent; Z88.8 Allergy status to other drugs, medicaments and biological substances
CPT/HCPCS: 73502

== ENCOUNTER 2017-10-01 11:22 | Outpatient (RCR) | payer MEDICARE ==
[~2017-10-01 11:22] MED LIST changes: +DICL100G18 TP; +METH4TAB PO; +TRAM-42 PO
== END 2017-10-12 | disposition home or self-care (01) ==
LOC: CR 11:22
PROVIDERS: ATTEND Internal Medicine Cardiovascular Disease
DX: Z48.812 Encounter for surgical aftercare following surgery on the circulatory system (principal); Z95.5 Presence of coronary angioplasty implant and graft
CPT/HCPCS: 93798

== ENCOUNTER 2017-12-02 03:27 | Inpatient (IN) | payer MEDICARE ==
[~2017-12-02] VITALS: Ht 160 cm; Wt 89.2 kg
[2017-12-02] VITALS (20 sets, daily range): BP systolic 103–175; BP diastolic 53–112
[~2017-12-02 03:27] MED LIST changes: +METF-397 PO; -METF500T5 PO
[2017-12-02] MEDS ORDERED: NS IV 1000 ML 1,000 ML IV ONE (03:34)
--- OUTSIDE RECORDS SUMMARY | 2017-12-02 03:35 | XMS REPORT | CCD ---
Author Author [facility] Organization [facility] Address [address] [place] [address] Phone Care Team Providers Care Corrosion Control Fitter Name Role Phone PP Unavailable CCM Unavailable Summary Purpose Interface Exchange Insurance Providers Payer name Policy type / Coverage type Covered republican ID Effective Begin Date Effective End Date WPS Medicare Part B Medicare Part B [id number] Unknown AARP Medicare Part B [id number] Unknown Family history Mother Diagnosis Age At Onset Arthritis Unknown Daughter Diagnosis Age At Onset No Known Diseases N/A Daughter Diagnosis Age At Onset No Known Diseases N/A Father Diagnosis Age At Onset Hypertension Unknown Diabetes Unknown Stroke Unknown Cancer Unknown Daughter Diagnosis Age At Onset glioblastoma Unknown Social History Social History Element Codes Description Effective Dates Marital status Unknown Wilfrido 06/18/2016 Number of children Unknown 3 08/14/[address]: 754770242 Never smoker 08/14/[address]: 354726209 Never drinks alcohol 08/14/2014 Allergies, Adverse Reactions, Alerts Substance Reaction Codes Entered Date Inactivated Date Status * OTHER REACTION - SEE ANSWER BOX Invokana, Victoza Unknown 07/2017 No Inactive Date Active Paxil has blurred vision RxNorm: 782758 08/14/2014 No Inactive Date Active Lipitor RxNorm: 92966 08/14/2014 No Inactive Date Active Past Medical History Illness Codes Condition Status Onset Date Resolved Date Type 2 diabetes mellitus with hyperglycemia ICD-9: 250.00 ICD-10: E11.65 Active 12/03/2014 Unknown Essential (primary) hypertension ICD-9: 401.1 ICD-10: I10 Active 04/15/2017 Unknown 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 ICD-9: 250.60 ICD-10: E11.43 Active 03/19/2016 Unknown Type 2 diabetes mellitus with hyperglycemia ICD-9: 250.02 ICD-10: E11.65 Active 10/11/2017 Unknown Paroxysmal atrial fibrillation ICD-9: 427.31 ICD-10: I48.0 Active 06/03/2017 Unknown Generalized anxiety disorder ICD-9: 300.00 ICD-10: F41.1 Active 01/07/2017 Unknown Major depressive disorder, recurrent, mild ICD-9: 296.31 ICD-10: F33.0 Active 09/14/2016 Unknown Paroxysmal tachycardia, unspecified ICD-9: 427.2 ICD-10: I47.9 Active 05/12/2017 Unknown Cough ICD-9: 786.2 ICD-10: R05 Active 04/15/2017 Unknown Dysuria ICD-9: 788.1 ICD-10: R30.0 Active 04/15/2017 Unknown Essential (primary) hypertension ICD-9: 401.9 ICD-10: I10 Active 08/13/2014 Unknown Encounter for immunization ICD-9: V04.81 ICD-10: Z23 Active 12/03/2014 Unknown Low back pain ICD-9: 724.2 ICD-10: M54.5 Active 08/13/2015 Unknown Hypothyroidism, unspecified ICD-9: 244.9 ICD-10: E03.9 Active 07/16/2015 Unknown Headache ICD-9: 784.0 ICD-10: R51 Active 03/24/2015 Unknown Aortic stenosis ICD-9 : 424.1 Active 12/03/2014 Unknown DIABETES TYPE II ICD-9 : 250.00 Active 12/03/2014 Unknown ESSENTIAL HYPERTENSION ICD-9: 401.9 Active 08/13/2014 Unknown VACCIN FOR INFLUENZA ICD-9: V04.81 Active 12/03/2014 Unknown Diabetes Unknown Active 08/14/2014 Unknown Hypertension Unknown Active 08/14/2014 Unknown Diabetes mellitus out of control ICD-9: 250.02 Active 2014 Unknown Problems Condition Codes Effective Dates Condition Status Type 2 diabetes mellitus with hyperglycemia ICD-9: 250.00 ICD-10: E11.65 12/03/2014 Active Essential (primary) hypertension ICD-9: 401.1 ICD-10: I10 04/15/2017 Active 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 ICD-9: 250.60 ICD-10: E11.43 03/19/2016 Active Type 2 diabetes mellitus with hyperglycemia ICD-9: 250.02 ICD-10: E11.65 10/11/2017 Active Paroxysmal atrial fibrillation ICD-9: 427.31 ICD-10: I48.0 06/03/2017 Active Generalized anxiety disorder ICD-9: 300.00 ICD-10: F41.1 01/07/2017 Active Major depressive disorder, recurrent, mild ICD-9: 296.31 ICD-10: F33.0 09/14/2016 Active Paroxysmal tachycardia, unspecified ICD-9: 427.2 ICD-10: I47.9 05/12/2017 Active Cough ICD-9: 786.2 ICD-10: R05 04/15/2017 Active Dysuria ICD-9: 788.1 ICD-10: R30.0 04/15/2017 Active Essential (primary) hypertension ICD-9: 401.9 ICD-10: I10 08/13/2014 Active Encounter for immunization ICD-9: V04.81 ICD-10: Z23 12/03/2014 Active Low back pain ICD-9: 724.2 ICD-10: M54.5 08/13/2015 Active Hypothyroidism, unspecified ICD-9: 244.9 ICD-10: E03.9 07/16/2015 Active Headache ICD-9: 784.0 ICD-10: R51 03/24/2015 Active Aortic stenosis ICD-9 : 424.1 12/03/2014 Active DIABETES TYPE II ICD-9 : 250.00 12/03/2014 Active ESSENTIAL HYPERTENSION ICD-9: 401.9 08/13/2014 Active VACCIN FOR INFLUENZA ICD-9: V04.81 12/03/2014 Active Diabetes Unknown 08/14/2014 Active Hypertension Unknown 08/14/2014 Active Diabetes mellitus out of control ICD-9: 250.02 08/13/2014 Active Medications Medication Codes Instructions Start Date Stop Date Status Fill Instructions metformin 500 mg tablet RxNorm: 780166 1 Tablet(s) PO UD 1.5 in morning, noon and 1 at bedtime 10/28/2017 10/22/2018 Active Basaglkindra Escamilla U-100 Insulin 100 unit/mL (3 mL) subcutaneous RxNorm: 3955334 18 Unit(s) SQ daily 10/26/201704/23 Active UPDATE RX levothyroxine 50 mcg tablet RxNorm: 846186 TAKE 1 TABLET BY MOUTH ONCE DAILY 10/15/2017 06/11/2018 Active Generic For:SYNTHROID 50MCG TAB 10/15/2017 9:59:00 AM escitalopram 10 mg tablet RxNorm: 399690 1 Tablet(s) PO QPM 01/201809/16/2018 Active Generic For:LEXAPRO 5MG 01/07/2017 9:05:43 AM Basaglar KwikPen U-100 Insulin 100 unit/mL (3 mL) subcutaneous RxNorm: 8573850 15 Unit(s) SQ daily 09/22/201710/25 Inactive potassium chloride ER 20 mEq tablet,extended release RxNorm: 019114 1 Tablet(s) PO daily 06/22/2017 01/17/2018 Active Lantus Solostar U-100 Insulin 100 unit/mL (3 mL) subcutaneous pen RxNorm: 893650 10 Unit(s) SQ daily 06/08/2017 Inactive Basaglar KwikPen U-100 Insulin 100 unit/mL (3 mL) subcutaneous RxNorm: 6453733 10 Unit(s) SQ daily 06/08/201706/07 Inactive Basaglar KwikPen U-100 Insulin 100 unit/mL (3 mL) subcutaneous RxNorm: 8526684 10 Unit(s) SQ daily 06/08/201709/21 Inactive Lexapro 5 mg tablet RxNorm: 568541 1 Tablet(s) PO daily 201711/27/2017 Active Lexapro 5 mg tablet RxNorm: 707460 1 Tablet(s) PO daily 201705/31/2017 Inactive bisoprolol 5 mg-hydrochlorothiazide 6.25 mg tablet RxNorm: 522203 1 Tablet(s) PO BID 05/04/2017 06/02/2017 Inactive Keflex 500 mg capsule RxNorm: 413219 1 Capsule(s) PO QID 201704/21/2017 Inactive Lantus Solostar 100 unit/mL (3 mL) subcutaneous insulin pen RxNorm: 568905 10 Unit(s) SQ daily 02/03/2017 06/07/2017 Inactive levothyroxine 50 mcg tablet RxNorm: 406614 TAKE 1 TABLET BY MOUTH ONCE DAILY 02/01/2017 09/28/2017 Inactive Generic For:SYNTHROID 50MCG TAB 02/01/2017 9:20:59 AM gabapentin 600 mg tablet RxNorm: 828210 1 Capsule(s) PO TID 01/21/2018 Active Lexapro 5 mg tablet RxNorm: 393965 TAKE 1 TABLET BY MOUTH AT BEDTIME 01/07/2017 09/21/2017 Inactive Generic For:LEXAPRO 5MG 01/07/2017 9:05:43 AM Victoza 2-Dariusz 0.6 mg/0.1 mL (18 mg/3 mL) subcutaneous pen injector RxNorm: 331480 1.8 Milligram(s) SQ daily 12/17/201602/07 Inactive Victoza 3-Dariusz 0.6 mg/0.1 mL (18 mg/3 mL) subcutaneous pen injector RxNorm: 895156 Milligram(s) SQ 12/17/2016 02/07/2017 Inactive Zetia 10 mg tablet RxNorm: 492659 1 Tablet(s) PO daily 201611/11/2017 Active fluticasone 50 mcg/actuation nasal spray,suspension RxNorm: 3865484 [place] NASAL ONE SPRAY IN EACH NOSTRIL TWICE DAILY 09/28/2016 04/25/2017 Inactive Victoza 2-Dariusz 0.6 mg/0.1 mL (18 mg/3 mL) subcutaneous pen injector RxNorm: 829922 1.2 Milligram(s) SQ daily 09/14/201612/16 Inactive Lexapro 5 mg tablet RxNorm: 949863 1 Tablet(s) PO QHS 201612/12/2016 Inactive metformin 500 mg tablet RxNorm: 002975 1 Tablet(s) PO UD 1.5 in morning, noon and 1 at bedtime 09/08/2016 09/02/2017 Inactive glimepiride 4 mg tablet RxNorm: 029643 TAKE 1 TABLET BY MOUTH ONCE DAILY 07/31/2016 09/13/2016 Inactive Generic For:*AMARYL 4MG 07/31/2016 9:02:38 AM Victoza 2-Dariusz 0.6 mg/0.1 mL (18 mg/3 mL) subcutaneous pen injector RxNorm: 049639 1.2 Milligram(s) SQ daily 05/18/201609/13 Inactive Victoza 2-Dariusz 0.6 mg/0.1 mL (18 mg/3 mL) subcutaneous pen injector RxNorm: 371618 1.2 Milligram(s) SQ daily 04/16/201605/17 Inactive levothyroxine 50 mcg tablet RxNorm: 364271 TAKE 1 TABLET BY MOUTH ONCE DAILY 04/08/2016 12/03/2016 Inactive Generic For:SYNTHROID 50MCG TAB 04/08/2016 9:05:40 AM levothyroxine 50 mcg tablet RxNorm: 978897 1 Tablet(s) PO daily TAKE 1 TABLET BY MOUTH ONCE DAILY 04/08/2016 12/03/2016 Inactive Generic For:SYNTHROID 50MCG TAB N O T I C E PRESCRIPTION PREVIOUSLY AUTHORIZED BY DOCTOR:HENRY BAIG bisoprolol 5 mg-hydrochlorothiazide 6.25 mg tablet RxNorm: 599989 1 Tablet(s) PO BID 03/23/2016 03/17/2017 Inactive Victoza 2-Dariusz 0.6 mg/0.1 mL (18 mg/3 mL) subcutaneous pen injector RxNorm: 962060 0.6 Milligram(s) SQ daily 03/19/201604/15 Inactive Lexapro 5 mg tablet RxNorm: 853017 1 Tablet(s) PO QHS 201606/16/2016 Inactive gabapentin 600 mg tablet RxNorm: 813502 1 Capsule(s) PO TID 07/201601/26/2017 Inactive glimepiride 4 mg tablet RxNorm: 403441 1 Tablet(s) PO daily 06/05/2016 Inactive Victoza 3-Dariusz 0.6 mg/0.1 mL (18 mg/3 mL) subcutaneous pen injector RxNorm: 492533 0.6 Milligram(s) SQ daily x2 weeks, then 1.2 mg SQ daily 03/18/2016 Inactive metformin 500 mg tablet RxNorm: 242190 1 Tablet(s) PO UD 1.5 in morning, noon and 1 at bedtime 08/14/2015 08/07/2016 Inactive gabapentin 600 mg tablet RxNorm: 821324 1 Capsule(s) PO TID SHE IS ONLY TAKING 1 QD 08/14/2015 03/18/2016 Inactive fluticasone 50 mcg/actuation nasal spray,suspension RxNorm: 342775 [place] NASAL ONE SPRAY IN EACH NOSTRIL TWICE DAILY 07/26/2015 07/25/2015 Inactive fluticasone 50 mcg/actuation nasal spray,suspension RxNorm: 7131438 [place] NASAL ONE SPRAY IN EACH NOSTRIL TWICE DAILY 07/26/2015 02/20/2016 Inactive bisoprolol 5 mg-hydrochlorothiazide 6.25 mg tablet RxNorm: 570763 1 Tablet(s) PO daily 1 Tablet(s) PO BID 07/17/20152015 Inactive metformin 500 mg tablet RxNorm: 795137 1 Tablet(s) PO TID 1 Tablet(s) PO TID 07/17/2015 08/13/2015 Inactive Diflucan 100 mg tablet RxNorm: 548465 1 Tablet(s) PO daily 06/201507/21/2015 Inactive Zetia 10 mg tablet RxNorm: 437616 1 Tablet(s) PO daily 201506/03/2016 Inactive bisoprolol 5 mg-hydrochlorothiazide 6.25 mg tablet RxNorm: 987188 1 Tablet(s) PO BID 04/18/2015 07/16/2015 Inactive metformin 500 mg tablet RxNorm: 280549 1 Tablet(s) PO TID 03/0106/28/2015 Inactive glimepiride 4 mg tablet RxNorm: 926798 1 Tablet(s) PO daily 01/30/2015 Inactive levothyroxine 50 mcg tablet RxNorm: 418172 TAKE 1 TABLET BY MOUTH ONCE DAILY 01/31/2015 09/27/2015 Inactive Generic For:SYNTHROID 50MCG TAB N O T I C E PRESCRIPTION PREVIOUSLY AUTHORIZED BY DOCTOR:HENRY BAIG glimepiride 4 mg tablet RxNorm: 372030 1 Tablet(s) PO daily 07/29/2015 Inactive Invokana 100 mg tablet RxNorm: 7514427 1 Tablet(s) PO daily 07/16/2015 Inactive bisoprolol 5 mg-hydrochlorothiazide 6.25 mg tablet RxNorm: 765521 1 Tablet(s) PO BID 08/27/2014 02/22/2015 Inactive metformin 500 mg tablet RxNorm: 494957 1 Tablet(s) PO TID 08/1012/07/2014 Inactive metformin 500 mg tablet RxNorm: 264163 1 Tablet(s) PO TID 08/1008/09/2014 Inactive Eliquis 5 mg tablet RxNorm: 9303583 1 Tablet(s) PO BID No Start Date Active Fish Oil 1,000 mg capsule RxNorm: 1 Capsule(s) PO daily No Start Date Active Protonix 40 mg tablet,delayed release RxNorm: 039624 1 Tablet(s) PO QAM No Start Date Active furosemide 40 mg tablet RxNorm: 102066 1 Tablet(s) PO daily No Start Date Active digoxin 250 mcg tablet RxNorm: 129139 1 Tablet(s) PO daily No Start Date Active pen needle, diabetic 31 gauge x 1/6" RxNorm: Miscellaneous No Start Date Active Effient 10 mg tablet RxNorm: 190453 1 Tablet(s) PO QAM No Start Date Active metoprolol succinate ER 100 mg tablet,extended release 24 hr RxNorm: 799852 1 Tablet(s) PO daily No Start Date Active nitroglycerin 0.4 mg sublingual tablet RxNorm: 279760 1 Tablet(s) SL as needed chest pain No Start Date Active Entresto 24 mg-26 mg tablet RxNorm: 5450163 1 Tablet(s) PO BID No Start Date Active aspirin 81 mg chewable tablet RxNorm: 721431 1 Tablet(s) PO daily No Start Date 06/02/2017 Inactive bisoprolol-hydrochlorothiazide oral RxNorm: 96043 oral No Start Date 08/26/2014 Inactive levothyroxine 50 mcg tablet RxNorm: 928351 1 Tablet(s) PO daily No Start Date 01/30/2015 Inactive potassium chloride ER 20 mEq tablet,extended release RxNorm: 405784 1 Tablet(s) PO daily No Start Date 06/21/2017 Inactive Invokana 100 mg tablet RxNorm: 6872528 1 Tablet(s) PO daily No Start Date 12/11/2014 Inactive Victoza 3-Dariusz 0.6 mg/0.1 mL (18 mg/3 mL) subcutaneous pen injector RxNorm: 756746 0.6 Milligram(s) SQ daily x2 weeks, then 1.2 mg SQ daily No Start Date 12/01/2015 Inactive Zetia 10 mg tablet RxNorm: 867910 1 Tablet(s) PO BID No Start Date 03/18/2016 Inactive gabapentin 300 mg capsule RxNorm: 474788 1 Capsule(s) PO BID No Start Date 08/13/2015 Inactive Lasix 40 mg tablet RxNorm: 636407 1 Tablet(s) PO BID No Start Date 04/14/2017 Inactive Coreg 3.125 mg tablet RxNorm: 548521 1 Tablet(s) PO BID with meals No Start Date 06/02/2017 Inactive Medication Administered No Medication Administered data Immunizations Vaccine Codes Date Status Influenza CVX: 141 12/17/2016 completed Influenza CVX: 141 11/14/2015 completed Influenza CVX: 141 12/04/2014 completed Assessments Condition Codes Effective Dates Type 2 diabetes mellitus with hyperglycemia ICD-10: E11.65 ICD-9: 250.00 10/26/2017 Type 2 diabetes mellitus with hyperglycemia ICD-10: E11.65 ICD-9: 250.02 10/11/2017 Essential (primary) hypertension ICD-10: I10 ICD-9: 401.1 09/22/2017 Type 2 diabetes mellitus with diabetic autonomic (poly)neuropathy ICD-10: E11.43 ICD-9: 250.60 09/22/2017 Paroxysmal atrial fibrillation ICD-10: I48.0 ICD-9: 427.31 07/06/2017 Paroxysmal tachycardia, unspecified ICD-10: I47.9 ICD-9: 427.2 05/12/2017 Major depressive disorder, recurrent, moderate ICD-10: F33.1 ICD-9: 296.32 05/12/2017 Generalized anxiety disorder ICD-10: F41.1 ICD-9: 300.00 05/12/2017 Cough ICD-10: R05 ICD-9: 786.2 04/15/2017 Dysuria ICD-10: R30.0 ICD-9: 788.1 04/15/2017 Essential (primary) hypertension ICD-10: I10 ICD-9: 401.9 03/19/2017 Encounter for immunization ICD-10: Z23 ICD-9: V04.81 12/17/2016 Major depressive disorder, recurrent, 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 ICD-9: 296.31 09/14/2016 Low back pain ICD-10: M54.5 ICD-9: 724.2 08/14/2015 Hypothyroidism, unspecified ICD-10: E03.9 ICD-9: 244.9 07/17/2015 Headache ICD-10: R51 ICD-9: 784.0 03/25/2015 ESSENTIAL HYPERTENSION ICD-9: 401.9 12/04 Aortic stenosis ICD-9: 424.1 12/04/2014 DIABETES TYPE II ICD-9: 250.00 2014 VACCIN FOR INFLUENZA ICD-9: V04.81 2014 Diabetes mellitus out of control ICD-9: 250.02 08/14/2014 Reason For Visit Reason For Visit Effective Dates Notes diabetes mellitus 10/26/2017 diabetes mellitus 10/11/2017 diabetes mellitus 09/22/2017 Hospital Follow Up 07/06/2017 Hospital Follow Up 06/03/2017 arrhythmia 05/12/2017 Hospital Follow Up 04/15/2017 stress test and then shipped to [place] [facility] Follow Up 03/19/2017 stress test and then shipped to [place] diabetes mellitus 02/03/2017 headache 01/07/2017 diabetes mellitus 12/17/2016 diabetes mellitus 09/14/2016 diabetes mellitus 06/18/2016 medication follow up 04/16/2016 back pain 03/19/2016 back pain 11/14/2015 back pain 08/14/2015 diabetes mellitus 07/17/2015 Hospital Follow Up 03/25/2015 diabetes mellitus 12/04/2014 diabetes mellitus 08/14/2014 Results Observation Observation Code Item Item Code Result Date Test(s) Not Perfromed [id number] Test(s) Not Performed Test(s) Not Performed. See Below: 09/20/2017 Test(s) Not Perfromed [id number] TEST NAME BNP 09/20/2017 Test(s) Not Perfromed [id number] Rejection Reason Patient Refused due to lack of coving diganosis 09/20/2017 Test(s) Not Perfromed VFI1006 COMMENT Dorita Notified 09/20 Test(s) Not Perfromed LEN8689 Cryogenics Repairer Miguel Mclaughlin 2017 B Type Natriuretic Peptide Xig6454 B-RHEOLOGIST 889.00 pg/ml 2017 Cbc With Differential Ord2 WBC 5.72 K/ul 09/20/2017 Cbc With Differential Ord2 RBC 3.88 M/ul 09/20/2017 Cbc With Differential Ord2 HGB 11.2 g/dl 09/20/2017 Cbc With Differential Ord2 HCT 35.0 % 09/20/2017 Cbc With Differential Ord2 Neut% 62.4 % 09/20/2017 Cbc With Differential Ord2 Lymph% 29.4 % 09/20/2017 Cbc With Differential Ord2 MCV 90.2 fl 09/20/2017 Cbc With Differential Ord2 MCH 28.9 pg 09/20/2017 Cbc With Differential Ord2 Hoke% 5.6 % 09/20/2017 Cbc With Differential Ord2 MCHC 32.0 pg 09/20/2017 Cbc With Differential Ord2 Eos% 2.1 % 09/20/2017 Cbc With Differential Ord2 PLT 350 K/ul 09/20/2017 Cbc With Differential Ord2 Baso% 0.5 % 09/20/2017 Cbc With Differential Ord2 RDW 14.4 % 09/20/2017 Cbc With Differential Ord2 Neut ABS# 3.57 K/ul 09/20/2017 Cbc With Differential Ord2 Lymph ABS# 1.68 K/ul 09/20/2017 Cbc With Differential Ord2 [place]oke ABS# 0.3 K/ul 09/20/2017 Cbc With Differential Ord2 Eos ABS# 0.1 K/ul 09/20/2017 Cbc With Differential Ord2 Baso ABS# 0.0 K/ul 09/20/2017 %Hba1C Abz750 % HbA1c 14434-7 7.9 % 09/20/2017 %Hba1C Heh916 Gluc Ave 180 mg/dL 09/20/2017 Magnesium Ord90 Mag 1.7 mg/dL 07/07/2017 Sed Rate Ord21 ESR 14 mm/hr 07/07/2017 Cbc With Differential Ord2 WBC 4.53 K/ul 07/07/2017 Cbc With Differential Ord2 RBC 3.75 M/ul 07/07/2017 Cbc With Differential Ord2 HGB 10.6 g/dl 07/07/2017 Cbc With Differential Ord2 Neut% 59.6 % 07/07/2017 Cbc With Differential Ord2 HCT 33.2 % 07/07/2017 Cbc With Differential Ord2 Lymph% 29.6 % 07/07/2017 Cbc With Differential Ord2 MCV 88.5 fl 07/07/2017 Cbc With Differential Ord2 Hoke% 7.9 % 07/07/2017 Cbc With Differential Ord2 MCH 28.3 pg 07/07/2017 Cbc With Differential Ord2 MCHC 31.9 pg 07/07/2017 Cbc With Differential Ord2 Eos% 2.2 % 07/07/2017 Cbc With Differential Ord2 Baso% 0.7 % 07/07/2017 Cbc With Differential Ord2 PLT 278 K/ul 07/07/2017 Cbc With Differential Ord2 Neut ABS# 2.70 K/ul 07/07/2017 Cbc With Differential Ord2 RDW 15.7 % 07/07/2017 Cbc With Differential Ord2 Lymph ABS# 1.34 K/ul 07/07/2017 Cbc With Differential Ord2 [place]oke ABS# 0.4 K/ul 07/07/2017 Cbc With Differential Ord2 Eos ABS# 0.1 K/ul 07/07/2017 Cbc With Differential Ord2 Baso ABS# 0.0 K/ul 07/07/2017 Comp Metabolic Axs035 NA 142 mEq/L 07/07/2017 Comp Metabolic Tzo858 K 4.3 mEq/L 07/07/2017 Comp Metabolic Nnu411 CL 105 mEq/L 07/07/2017 Comp Metabolic Doc250 CO2 28.0 mEq/L 07/07/2017 Comp Metabolic Wcy763 ANION GAP 13 07/07/2017 Comp Metabolic Kxn824 GLUCOSE 197 mg/dL 07/07/2017 Comp Metabolic Ywj598 Creat 1.1 mg/dL 07/07/2017 Comp Metabolic Pgw225 eGFR 51 ml/min/1.73m2 07/07/2017 Comp Metabolic Eww185 BUN 21 mg/dL 07/07/2017 Comp Metabolic Mcv863 B/C Ratio 18.9 Ratio 07/07/2017 Comp Metabolic Ekx454 CALCIUM 8.9 mg/dL 07/07/2017 Comp Metabolic Fcl206 ALK PHOS 51 U/L 07/07/2017 Comp Metabolic Ija644 AST(SGOT) 11 U/L 07/07/2017 Comp Metabolic Hhy903 ALT(SGPT) 11 U/L 07/07/2017 Comp Metabolic Nsm136 BILI T 0.3 mg/dL 07/07/2017 Comp Metabolic Tkm384 ALBUMIN 4.2 g/dL 07/07/2017 Comp Metabolic Giz399 TPRO 6.0 g/dL 07/07/2017 Comp Metabolic Grw676 GLOB 1.8 g/dL 07/07/2017 Comp Metabolic Arm568 A/G Ratio 2.3 Ratio 07/07/2017 Comp Metabolic Dsa143 Osmo 292 mOsmo 07/07/2017 Digoxin Ord9 DIGOXIN 1.3 NG/ML 07/07/2017 Tsh Ord6 TSH (3rd IS) 2.19 uIU/mL 07/07/2017 B Type Natriuretic Peptide Joq0212 B-RHEOLOGIST 801.00 pg/ml 2017 Culture Urine [id number] URINE CULTURE SEE NOTES 04/19/2017 Culture Urine [id number] Continued Results 04/19/2017 Urine Culture Ucult Complete >100,000 col/ml aerobic growth sent to ref lab 04/16/2017 Comp Metabolic Fzy194 NA 140 mEq/L 01/26/2017 Comp Metabolic Din276 K 4.6 mEq/L 01/26/2017 Comp Metabolic Yww008 CL 102 mEq/L 01/26/2017 Comp Metabolic Avm994 CO2 28.0 mEq/L 01/26/2017 Comp Metabolic Jrb620 ANION GAP 15 01/26/2017 Comp Metabolic Kxe393 GLUCOSE 173 mg/dL 01/26/2017 Comp Metabolic Nyy394 Creat 1.0 mg/dL 01/26/2017 Comp Metabolic Ven647 eGFR 56 ml/min/1.73m2 01/26/2017 Comp Metabolic Agc238 BUN 23 mg/dL 01/26/2017 Comp Metabolic Xfj439 B/C Ratio 22.5 Ratio 01/26/2017 Comp Metabolic Fci783 CALCIUM 9.4 mg/dL 01/26/2017 Comp Metabolic Nth355 ALK PHOS 52 U/L 01/26/2017 Comp Metabolic Zrs834 AST(SGOT) 12 U/L 01/26/2017 Comp Metabolic Ats622 ALT(SGPT) 12 U/L 01/26/2017 Comp Metabolic Dlg228 BILI T 0.5 mg/dL 01/26/2017 Comp Metabolic Kgf401 ALBUMIN 4.4 g/dL 01/26/2017 Comp Metabolic Pcs160 TPRO 6.5 g/dL 01/26/2017 Comp Metabolic Rpt412 GLOB 2.1 g/dL 01/26/2017 Comp Metabolic Ugo859 A/G Ratio 2.1 Ratio 01/26/2017 Comp Metabolic Qky210 Osmo 287 mOsmo 01/26/2017 Cbc With Differential Ord2 WBC 7.40 K/ul 01/26/2017 Cbc With Differential Ord2 RBC 4.32 M/ul 01/26/2017 Cbc With Differential Ord2 HGB 12.6 g/dl 01/26/2017 Cbc With Differential Ord2 HCT 38.3 % 01/26/2017 Cbc With Differential Ord2 Neut% 69.9 % 01/26/2017 Cbc With Differential Ord2 Lymph% 23.6 % 01/26/2017 Cbc With Differential Ord2 MCV 88.7 fl 01/26/2017 Cbc With Differential Ord2 MCH 29.2 pg 01/26/2017 Cbc With Differential Ord2 Hoke% 4.9 % 01/26/2017 Cbc With Differential Ord2 Eos% 1.1 % 01/26/2017 Cbc With Differential Ord2 MCHC 32.9 pg 01/26/2017 Cbc With Differential Ord2 Baso% 0.5 % 01/26/2017 Cbc With Differential Ord2 PLT 345 K/ul 01/26/2017 Cbc With Differential Ord2 Neut ABS# 5.17 K/ul 01/26/2017 Cbc With Differential Ord2 RDW 14.3 % 01/26/2017 Cbc With Differential Ord2 Lymph ABS# 1.75 K/ul 01/26/2017 Cbc With Differential Ord2 Hoke ABS# 0.4 K/ul 01/26/2017 Cbc With Differential Ord2 Eos ABS# 0.1 K/ul 01/26/2017 Cbc With Differential Ord2 Baso ABS# 0.0 K/ul 01/26/2017 %Hba1C Omc130 % HbA1c 10042-6 7.8 % 01/26/2017 %Hba1C Kyh060 Gluc Ave 177 mg/dL 01/26/2017 Lipid Ord30 CHOL 239 mg/dL 01/26/2017 Lipid Ord30 HDL 40.0 mg/dl 01/26/2017 Lipid Ord30 TRIG 325 mg/dL 01/26/2017 Lipid Ord30 LDL 134 mg/dL 01/26/2017 Lipid Ord30 C/HDL 6.0 Ratio 01/26/2017 Free T4 Bfq332 FREE T4 0.95 ng/dL 01/26/2017 Tsh Ord6 hTSH II 1.55 uIU/mL 01/26/2017 Metabolic Ord15 NA 139 mEq/L 09/08/2016 Metabolic Ord15 K 4.2 mEq/L 09/08/2016 Metabolic Ord15 CL 101 mEq/L 09/08/2016 Metabolic Ord15 CO2 30.0 mEq/L 09/08/2016 Metabolic Ord15 GLUCOSE 128 mg/dL 09/08/2016 Metabolic Ord15 BUN 17 mg/dL 09/08/2016 Metabolic Ord15 Creat 0.8 mg/dL 09/08/2016 Metabolic Ord15 B/C Ratio 20.7 Ratio 09/08/2016 Metabolic Ord15 eGFR 72 ml/min/1.73m2 09/08/2016 Metabolic Ord15 Osmo 281 mOsmo 09/08/2016 Metabolic Ord15 ANION GAP 12 09/08/2016 Metabolic Ord15 CALCIUM 9.0 mg/dL 09/08/2016 %Hba1C Slf877 % HbA1c 94583-9 7.5 % 09/08/2016 %Hba1C Jkv505 Gluc Ave 169 mg/dL 09/08/2016 Tsh Ord6 hTSH II 2.64 uIU/mL 03/13/2016 %Hba1C Wov927 % HbA1c 93603-9 8.2 % 03/13/2016 %Hba1C Fmt813 Gluc Ave 189 mg/dL 03/13/2016 Lipid Ord30 CHOL 233 mg/dL 03/13/2016 Lipid Ord30 HDL 46.0 mg/dl 03/13/2016 Lipid Ord30 TRIG 276 mg/dL 03/13/2016 Lipid Ord30 LDL 132 mg/dL 03/13/2016 Lipid Ord30 C/HDL 5.1 Ratio 03/13/2016 Free T4 Har477 FREE T4 0.94 ng/dL 03/13/2016 Cbc With Differential Ord2 WBC 5.53 K/ul 03/13/2016 Cbc With Differential Ord2 RBC 4.19 M/ul 03/13/2016 Cbc With Differential Ord2 HGB 12.7 g/dl 03/13/2016 Cbc With Differential Ord2 HCT 38.3 % 03/13/2016 Cbc With Differential Ord2 Neut% 62.1 % 03/13/2016 Cbc With Differential Ord2 MCV 91.4 fl 03/13/2016 Cbc With Differential Ord2 Lymph% 29.5 % 03/13/2016 Cbc With Differential Ord2 Hoke% 6.1 % 03/13/2016 Cbc With Differential Ord2 MCH 30.3 pg 03/13/2016 Cbc With Differential Ord2 Eos% 1.8 % 03/13/2016 Cbc With Differential Ord2 MCHC 33.2 pg 03/13/2016 Cbc With Differential Ord2 Baso% 0.5 % 03/13/2016 Cbc With Differential Ord2 PLT 304 K/ul 03/13/2016 Cbc With Differential Ord2 RDW 14.4 % 03/13/2016 Cbc With Differential Ord2 Neut ABS# 3.43 K/ul 03/13/2016 Cbc With Differential Ord2 Lymph ABS# 1.63 K/ul 03/13/2016 Cbc With Differential Ord2 [place] ABS# 0.3 K/ul 03/13/2016 Cbc With Differential Ord2 Eos ABS# 0.1 K/ul 03/13/2016 Cbc With Differential Ord2 Baso ABS# 0.0 K/ul 03/13/2016 Comp Metabolic Adq243 NA 139 mEq/L 03/13/2016 Comp Metabolic Roc787 K 4.3 mEq/L 03/13/2016 Comp Metabolic Bko582 CL 103 mEq/L 03/13/2016 Comp Metabolic Dvx732 CO2 28.0 mEq/L 03/13/2016 Comp Metabolic Ggy962 ANION GAP 12 03/13/2016 Comp Metabolic Ofj798 GLUCOSE 200 mg/dL 03/13/2016 Comp Metabolic Wsq478 Creat 0.9 mg/dL 03/13/2016 Comp Metabolic Etk835 eGFR 69 ml/min/1.73m2 03/13/2016 Comp Metabolic Jiy205 BUN 19 mg/dL 03/13/2016 Comp Metabolic Qpt414 B/C Ratio 22.4 Ratio 03/13/2016 Comp Metabolic Bzh892 CALCIUM 9.0 mg/dL 03/13/2016 Comp Metabolic Ohb100 ALK PHOS 57 U/L 03/13/2016 Comp Metabolic Wqh455 AST(SGOT) 13 U/L 03/13/2016 Comp Metabolic Hrq415 ALT(SGPT) 16 U/L 03/13/2016 Comp Metabolic Pry814 BILI T 0.4 mg/dL 03/13/2016 Comp Metabolic Nif070 ALBUMIN 4.2 g/dL 03/13/2016 Comp Metabolic Nfb365 TPRO 6.3 g/dL 03/13/2016 Comp Metabolic Xnl886 GLOB 2.1 g/dL 03/13/2016 Comp Metabolic Ihv676 A/G Ratio 2.0 Ratio 03/13/2016 Comp Metabolic Edl095 Osmo 285 mOsmo 03/13/2016 %Hba1C Zcz122 % HbA1c 51672-5 8.3 % 11/14/2015 %Hba1C Egd318 Gluc Ave 192 mg/dL 11/14/2015 Lipid Ord30 CHOL 210 mg/dL 07/19/2015 Lipid Ord30 HDL 43.0 mg/dl 07/19/2015 Lipid Ord30 TRIG 311 mg/dL 07/19/2015 Lipid Ord30 LDL 105 mg/dL 07/19/2015 Lipid Ord30 C/HDL 4.9 Ratio 07/19/2015 %Hba1C Ihp560 % HbA1c 85069-8 7.6 % 07/19/2015 %Hba1C Dcx978 Gluc Ave 171 mg/dL 07/19/2015 Cbc With Differential Ord2 WBC 5.38 K/ul 07/19/2015 Cbc With Differential Ord2 RBC 4.82 M/ul 07/19/2015 Cbc With Differential Ord2 HGB 13.9 g/dl 07/19/2015 Cbc With Differential Ord2 Neut% 61.9 % 07/19/2015 Cbc With Differential Ord2 HCT 42.2 % 07/19/2015 Cbc With Differential Ord2 Lymph% 30.3 % 07/19/2015 Cbc With Differential Ord2 MCV 87.6 fl 07/19/2015 Cbc With Differential Ord2 Hoke% 6.1 % 07/19/2015 Cbc With Differential Ord2 MCH 28.8 pg 07/19/2015 Cbc With Differential Ord2 MCHC 32.9 pg 07/19/2015 Cbc With Differential Ord2 Eos% 1.3 % 07/19/2015 Cbc With Differential Ord2 PLT 304 K/ul 07/19/2015 Cbc With Differential Ord2 Baso% 0.4 % 07/19/2015 Cbc With Differential Ord2 Neut ABS# 3.33 K/ul 07/19/2015 Cbc With Differential Ord2 RDW 14.6 % 07/19/2015 Cbc With Differential Ord2 Lymph ABS# 1.63 K/ul 07/19/2015 Cbc With Differential Ord2 Hoke ABS# 0.3 K/ul 07/19/2015 Cbc With Differential Ord2 Eos ABS# 0.1 K/ul 07/19/2015 Cbc With Differential Ord2 Baso ABS# 0.0 K/ul 07/19/2015 Cbc With Differential Ord2 New Analyzer Notice Please note new ref ranges starting 03-27-2015 due to implemntation of new five part differential hematolgy analyzer. 07/19/2015 Comp Metabolic Oit872 NA 138 mEq/L 07/19/2015 Comp Metabolic Lcf197 K 4.3 mEq/L 07/19/2015 Comp Metabolic Zei915 CL 100 mEq/L 07/19/2015 Comp Metabolic Hwm658 CO2 33.0 mEq/L 07/19/2015 Comp Metabolic Yvz136 ANION GAP 9 07/19/2015 Comp Metabolic Fae829 GLUCOSE 149 mg/dL 07/19/2015 Comp Metabolic Vbt522 Creat 0.9 mg/dL 07/19/2015 Comp Metabolic Mni673 eGFR 62 ml/min/1.73m2 07/19/2015 Comp Metabolic Ubj563 BUN 19 mg/dL 07/19/2015 Comp Metabolic Pwa343 B/C Ratio 20.2 Ratio 07/19/2015 Comp Metabolic Swg910 CALCIUM 9.5 mg/dL 07/19/2015 Comp Metabolic Pjz880 ALK PHOS 52 U/L 07/19/2015 Comp Metabolic Lbh191 AST(SGOT) 15 U/L 07/19/2015 Comp Metabolic Ryw100 ALT(SGPT) 14 U/L 07/19/2015 Comp Metabolic Vnm829 BILI T 0.5 mg/dL 07/19/2015 Comp Metabolic Hjb801 ALBUMIN 4.4 g/dL 07/19/2015 Comp Metabolic Yuq437 TPRO 6.4 g/dL 07/19/2015 Comp Metabolic Vdn402 GLOB 2.0 g/dL 07/19/2015 Comp Metabolic Hly847 A/G Ratio 2.2 Ratio 07/19/2015 Comp Metabolic Ofj497 Osmo 281 mOsmo 07/19/2015 Free T4 Ghc705 FREE T4 0.92 ng/dL 07/19/2015 Tsh Ord6 hTSH II 1.95 uIU/mL 07/19/2015 Microalbumin Sxk288 MicroAlb 0.4 mg/dL 07/19/2015 Comp Metabolic Cbu263 NA 137 mEq/L 12/04/2014 Comp Metabolic Mrs023 K 4.0 mEq/L 12/04/2014 Comp Metabolic Yta798 CL 100 mEq/L 12/04/2014 Comp Metabolic Dya107 CO2 29.0 mEq/L 12/04/2014 Comp Metabolic Jpt749 ANION GAP 12 12/04/2014 Comp Metabolic Lum439 GLUCOSE 171 mg/dL 12/04/2014 Comp Metabolic Hyn979 Creat 1.0 mg/dL 12/04/2014 Comp Metabolic Hwk825 eGFR 60 ml/min/1.73m2 12/04/2014 Comp Metabolic Pgv395 BUN 25 mg/dL 12/04/2014 Comp Metabolic Bvu105 B/C Ratio 25.8 Ratio 12/04/2014 Comp Metabolic Khd619 CALCIUM 9.4 mg/dL 12/04/2014 Comp Metabolic Znm230 ALK PHOS 60 U/L 12/04/2014 Comp Metabolic Nvk309 AST(SGOT) 13 U/L 12/04/2014 Comp Metabolic Xsd540 ALT(SGPT) 17 U/L 12/04/2014 Comp Metabolic Ueu629 BILI T 0.4 mg/dL 12/04/2014 Comp Metabolic Tdl072 ALBUMIN 4.4 g/dL 12/04/2014 Comp Metabolic Xns911 TPRO 6.9 g/dL 12/04/2014 Comp Metabolic Zni520 GLOB 2.5 g/dL 12/04/2014 Comp Metabolic Nuk946 A/G Ratio 1.8 Ratio 12/04/2014 Comp Metabolic Mpg976 Osmo 282 mOsmo 12/04/2014 Tsh Ord6 hTSH II 1.78 uIU/mL 12/04/2014 %Hba1C Ake144 % HbA1c 19809-4 8.3 % 12/04/2014 %Hba1C Rva252 Gluc Ave 192 mg/dL 12/04/2014 Free T4 Rip121 FREE T4 0.85 ng/dL 12/04/2014 Lipid Ord30 CHOL 211 mg/dL 12/04/2014 Lipid Ord30 HDL 39.0 mg/dl 12/04/2014 Lipid Ord30 TRIG 393 mg/dL 12/04/2014 Lipid Ord30 LDL 93 mg/dL 12/04/2014 Lipid Ord30 C/HDL 5.4 Ratio 12/04/2014 Cbc With Differential Ord2 WBC 5.5 K/uL 12/04/2014 Cbc With Differential Ord2 LYM 1.7 K/uL 12/04/2014 Cbc With Differential Ord2 LYM% 31.1 % 12/04/2014 Cbc With Differential Ord2 NEUT/GRAN 3.5 K/uL 12/04/2014 Cbc With Differential Ord2 NEUT/GRAN % 62.9 % 12/04/2014 Cbc With Differential Ord2 MID 0.3 K/uL 12/04/2014 Cbc With Differential Ord2 MID% 6.0 % 12/04/2014 Cbc With Differential Ord2 RBC 4.49 M/uL 12/04/2014 Cbc With Differential Ord2 HGB 12.7 g/dL 12/04/2014 Cbc With Differential Ord2 HCT 40.8 % 12/04/2014 Cbc With Differential Ord2 MCV 91 fL 12/04/2014 Cbc With Differential Ord2 MCH 28 pg 12/04/2014 Cbc With Differential Ord2 MCHC 31 g/dL 12/04/2014 Cbc With Differential Ord2 PLT 357 K/uL 12/04/2014 Cbc With Differential Ord2 RDW 13.8 % 12/04/2014 Review of Systems System Result Effective Dates Constitutional No recent illness 2017 Constitutional No chills 10/26/2017 Constitutional No diaphoresis 10/26/2017 Constitutional No fever 10/26/2017 Eyes No blindness 10/26/2017 Ears/Nose/Throat/Neck No nasal discharge 10/26/2017 Cardiovascular No chest pain/pressure Cardiovascular dyspnea 10/26/2017 Cardiovascular palpitations 10/26/2017 Respiratory No chest tightness 2017 Respiratory No cough 10/26/2017 Gastrointestinal No abdominal pain 2017 Gastrointestinal No constipation 2017 Genitourinary/Nephrology No urinary urgency 10/26/2017 Genitourinary/Nephrology No urinary frequency 10/26/2017 Dermatologic No rash 10/26/2017 Neurologic No alteration of consciousness 10/26/2017 Neurologic No mental status change 2017 Endocrine diabetes mellitus type 2 2017 Psychiatric anxiety 10/26/2017 Constitutional No recent illness 2017 Constitutional No recent illness 2017 Constitutional No chills 09/22/2017 Constitutional No diaphoresis 09/22/2017 Constitutional No fever 09/22/2017 Eyes No blindness 09/22/2017 Ears/Nose/Throat/Neck No nasal discharge 09/22/2017 Cardiovascular No chest pain/pressure 01/2018 Cardiovascular dyspnea 09/22/2017 Cardiovascular palpitations 09/22/2017 Gastrointestinal No abdominal pain 2017 Gastrointestinal No constipation 2017 Genitourinary/Nephrology No urinary urgency 09/22/2017 Genitourinary/Nephrology No urinary frequency 09/22/2017 Dermatologic No rash 09/22/2017 Neurologic No alteration of consciousness 09/22/2017 Neurologic No mental status change 2017 Respiratory No cough 09/22/2017 Respiratory No chest tightness 2017 Endocrine diabetes mellitus type 2 2017 Constitutional No recent illness 2017 Constitutional No chills 07/06/2017 Constitutional No diaphoresis 07/06/2017 Constitutional No fever 07/06/2017 Eyes No blindness 07/06/2017 Ears/Nose/Throat/Neck No nasal discharge 07/06/2017 Cardiovascular No chest pain/pressure Cardiovascular dyspnea 07/06/2017 Cardiovascular fatigue 07/06/2017 Cardiovascular palpitations 07/06/2017 Respiratory cough 07/06/2017 Respiratory dyspnea on exertion 2017 Gastrointestinal No abdominal pain 2017 Gastrointestinal No constipation 2017 Dermatologic No rash 07/06/2017 Neurologic No alteration of consciousness 07/06/2017 Neurologic No mental status change 2017 Genitourinary/Nephrology No urinary frequency 07/06/2017 Genitourinary/Nephrology No urinary urgency 07/06/2017 Constitutional No recent illness 2017 Constitutional No chills 06/03/2017 Constitutional No diaphoresis 06/03/2017 Constitutional No fever 06/03/2017 Eyes No blindness 06/03/2017 Ears/Nose/Throat/Neck No nasal discharge 06/03/2017 Cardiovascular No chest pain/pressure Cardiovascular No dyspnea 06/03/2017 Cardiovascular fatigue 06/03/2017 Cardiovascular palpitations 06/03/2017 Respiratory cough 06/03/2017 Respiratory dyspnea on exertion 2017 Gastrointestinal No abdominal pain 2017 Dermatologic No rash 06/03/2017 Neurologic No alteration of consciousness 06/03/2017 Neurologic No mental status change 2017 Gastrointestinal No constipation 2017 Gastrointestinal diarrhea 06/03/2017 Genitourinary/Nephrology urinary frequency 06/03/2017 Constitutional No recent illness 2017 Constitutional No chills 05/12/2017 Constitutional No diaphoresis 05/12/2017 Constitutional No fever 05/12/2017 Eyes No eye erythema 05/12/2017 Ears/Nose/Throat/Neck No nasal discharge 05/12/2017 Cardiovascular No chest pain/pressure Cardiovascular No dyspnea 05/12/2017 Cardiovascular palpitations 05/12/2017 Cardiovascular fatigue 05/12/2017 Respiratory No cough 05/12/2017 Respiratory dyspnea on exertion 2017 Gastrointestinal No abdominal pain 2017 Neurologic No alteration of consciousness 05/12/2017 Neurologic No mental status change 2017 Dermatologic No rash 05/12/2017 Constitutional No recent illness 2017 Constitutional No chills 04/15/2017 Constitutional No diaphoresis 04/15/2017 Constitutional fatigue 04/15/2017 Constitutional No fever 04/15/2017 Constitutional malaise 04/15/2017 Eyes No blindness 04/15/2017 Ears/Nose/Throat/Neck headache 2017 Ears/Nose/Throat/Neck nasal allergies 03/2017 Ears/Nose/Throat/Neck No nasal discharge 04/15/2017 Cardiovascular No chest pain/pressure 03/2017 Cardiovascular exercise intolerance 04/15 Cardiovascular fatigue 04/15/2017 Respiratory No chest congestion 2017 Respiratory cough 04/15/2017 Respiratory No dyspnea 04/15/2017 Gastrointestinal No abdominal pain 2017 Gastrointestinal No constipation 2017 Gastrointestinal No diarrhea 04/15/2017 Gastrointestinal nausea 04/15/2017 Gastrointestinal No vomiting 04/15/2017 Genitourinary/Nephrology No dysuria 04/15 Genitourinary/Nephrology No nocturia 03/2017 Genitourinary/Nephrology No urinary incontinence 04/15/2017 Musculoskeletal No stiffness 04/15/2017 Musculoskeletal No swelling 04/15/2017 Musculoskeletal No muscle weakness 2017 Musculoskeletal No myalgias 04/15/2017 Dermatologic No rash 04/15/2017 Neurologic No alteration of consciousness 04/15/2017 Neurologic No mental status change 2017 Psychiatric anxiety 04/15/2017 Psychiatric depression 04/15/2017 Constitutional recent illness 03/19/2017 Constitutional No chills 03/19/2017 Constitutional No diaphoresis 03/19/2017 Constitutional fatigue 03/19/2017 Constitutional No fever 03/19/2017 Constitutional malaise 03/19/2017 Eyes No blindness 03/19/2017 Ears/Nose/Throat/Neck headache 2017 Ears/Nose/Throat/Neck nasal allergies 07/2017 Ears/Nose/Throat/Neck No nasal discharge 03/19/2017 Cardiovascular No chest pain/pressure 07/2017 Cardiovascular palpitations 03/19/2017 Respiratory No chest congestion 2017 Respiratory cough 03/19/2017 Respiratory No dyspnea 03/19/2017 Gastrointestinal No abdominal pain 2017 Gastrointestinal No constipation 2017 Gastrointestinal No diarrhea 03/19/2017 Gastrointestinal nausea 03/19/2017 Gastrointestinal No vomiting 03/19/2017 Dermatologic No rash 03/19/2017 Neurologic No alteration of consciousness 03/19/2017 Neurologic No mental status change 2017 Cardiovascular exercise intolerance 03/19 Cardiovascular fatigue 03/19/2017 Genitourinary/Nephrology No dysuria 03/19 Genitourinary/Nephrology No nocturia 07/2017 Genitourinary/Nephrology No urinary incontinence 03/19/2017 Musculoskeletal No stiffness 03/19/2017 Musculoskeletal No swelling 03/19/2017 Musculoskeletal No muscle weakness 2017 Musculoskeletal No myalgias 03/19/2017 Constitutional recent illness 02/03/2017 Constitutional No chills 02/03/2017 Constitutional No diaphoresis 02/03/2017 Constitutional fatigue 02/03/2017 Constitutional No fever 02/03/2017 Constitutional malaise 02/03/2017 Eyes No blindness 02/03/2017 Ears/Nose/Throat/Neck nasal allergies Ears/Nose/Throat/Neck No nasal discharge 02/03/2017 Cardiovascular No chest pain/pressure Cardiovascular No palpitations 2016 Respiratory No chest congestion 2016 Respiratory No cough 02/03/2017 Respiratory No dyspnea 02/03/2017 Gastrointestinal No abdominal pain 2016 Gastrointestinal No constipation 2016 Gastrointestinal No diarrhea 02/03/2017 Gastrointestinal nausea 02/03/2017 Gastrointestinal No vomiting 02/03/2017 Dermatologic No rash 02/03/2017 Neurologic No alteration of consciousness 02/03/2017 Neurologic No mental status change 2016 Psychiatric No anxiety 02/03/2017 Psychiatric No depression 02/03/2017 Endocrine diabetes mellitus type 2 2016 Constitutional recent illness 01/07/2017 Constitutional No chills 01/07/2017 Constitutional No diaphoresis 01/07/2017 Constitutional fatigue 01/07/2017 Constitutional No fever 01/07/2017 Constitutional malaise 01/07/2017 Eyes No eye erythema 01/07/2017 Ears/Nose/Throat/Neck nasal allergies Ears/Nose/Throat/Neck headache 2016 Ears/Nose/Throat/Neck No nasal discharge 01/07/2017 Cardiovascular No chest pain/pressure Cardiovascular palpitations 01/07/2017 Respiratory cough 01/07/2017 Respiratory No dyspnea 01/07/2017 Respiratory No chest congestion 2016 Gastrointestinal No abdominal pain 2016 Gastrointestinal No diarrhea 01/07/2017 Gastrointestinal No constipation 2016 Gastrointestinal nausea 01/07/2017 Gastrointestinal No vomiting 01/07/2017 Dermatologic No rash 01/07/2017 Neurologic No alteration of consciousness 01/07/2017 Neurologic No mental status change 2016 Constitutional No recent illness 2016 Constitutional No chills 12/17/2016 Constitutional No fatigue 12/17/2016 Constitutional No fever 12/17/2016 Ears/Nose/Throat/Neck No dizziness 2016 Ears/Nose/Throat/Neck No headache 2016 Cardiovascular No chest pain/pressure 07/2016 Cardiovascular No near-syncope/dizziness 12/17/2016 Cardiovascular No palpitations 2016 Respiratory No chest congestion 2016 Respiratory No cough 12/17/2016 Gastrointestinal No abdominal pain 2016 Gastrointestinal No constipation 2016 Gastrointestinal No diarrhea 12/17/2016 Gastrointestinal No nausea 12/17/2016 Gastrointestinal No vomiting 12/17/2016 Musculoskeletal No stiffness 12/17/2016 Musculoskeletal No swelling 12/17/2016 Musculoskeletal No muscle weakness 2016 Musculoskeletal No myalgias 12/17/2016 Psychiatric anxiety 12/17/2016 Psychiatric depression 12/17/2016 Constitutional No recent illness 2016 Constitutional No chills 09/14/2016 Constitutional No fatigue 09/14/2016 Constitutional No fever 09/14/2016 Eyes No blindness 09/14/2016 Eyes No vision change 09/14/2016 Ears/Nose/Throat/Neck No dizziness 2016 Ears/Nose/Throat/Neck No headache 2016 Cardiovascular No chest pain/pressure 05/2016 Cardiovascular No near-syncope/dizziness 09/14/2016 Cardiovascular No palpitations 2016 Respiratory No chest congestion 2016 Respiratory No cough 09/14/2016 Gastrointestinal No abdominal pain 2016 Gastrointestinal No constipation 2016 Gastrointestinal No diarrhea 09/14/2016 Gastrointestinal No nausea 09/14/2016 Gastrointestinal No vomiting 09/14/2016 Genitourinary/Nephrology No dysuria 09/14 Musculoskeletal No stiffness 09/14/2016 Musculoskeletal No swelling 09/14/2016 Musculoskeletal No muscle weakness 2016 Musculoskeletal No myalgias 09/14/2016 Dermatologic No rash 09/14/2016 Dermatologic No scar 09/14/2016 Neurologic No alteration of consciousness 09/14/2016 Psychiatric anxiety 09/14/2016 Psychiatric depression 09/14/2016 Constitutional No recent illness 2016 Constitutional No chills 06/18/2016 Constitutional No fatigue 06/18/2016 Constitutional No fever 06/18/2016 Eyes No blindness 06/18/2016 Eyes No vision change 06/18/2016 Ears/Nose/Throat/Neck No dizziness 2016 Ears/Nose/Throat/Neck No headache 2016 Cardiovascular No chest pain/pressure 08/2016 Cardiovascular No near-syncope/dizziness 06/18/2016 Cardiovascular No palpitations 2016 Respiratory No chest congestion 2016 Respiratory No cough 06/18/2016 Gastrointestinal No abdominal pain 2016 Gastrointestinal No constipation 2016 Gastrointestinal No diarrhea 06/18/2016 Gastrointestinal No nausea 06/18/2016 Gastrointestinal No vomiting 06/18/2016 Genitourinary/Nephrology No dysuria 06/18 Musculoskeletal No stiffness 06/18/2016 Musculoskeletal No swelling 06/18/2016 Musculoskeletal No muscle weakness 2016 Musculoskeletal No myalgias 06/18/2016 Dermatologic No rash 06/18/2016 Dermatologic No scar 06/18/2016 Neurologic No alteration of consciousness 06/18/2016 Psychiatric No anxiety 06/18/2016 Psychiatric No depression 06/18/2016 Constitutional No recent illness 2016 Constitutional No chills 04/16/2016 Constitutional No fatigue 04/16/2016 Constitutional No fever 04/16/2016 Eyes No blindness 04/16/2016 Eyes No vision change 04/16/2016 Ears/Nose/Throat/Neck No dizziness 2016 Ears/Nose/Throat/Neck No headache 2016 Cardiovascular No chest pain/pressure 04/2016 Cardiovascular No near-syncope/dizziness 04/16/2016 Cardiovascular No palpitations 2016 Respiratory No chest congestion 2016 Respiratory No cough 04/16/2016 Gastrointestinal No abdominal pain 2016 Gastrointestinal No constipation 2016 Gastrointestinal No diarrhea 04/16/2016 Gastrointestinal No nausea 04/16/2016 Gastrointestinal No vomiting 04/16/2016 Genitourinary/Nephrology No dysuria 04/16 Musculoskeletal No stiffness 04/16/2016 Musculoskeletal No swelling 04/16/2016 Musculoskeletal No muscle weakness 2016 Musculoskeletal No myalgias 04/16/2016 Dermatologic No rash 04/16/2016 Dermatologic No scar 04/16/2016 Neurologic No alteration of consciousness 04/16/2016 Psychiatric No anxiety 04/16/2016 Psychiatric No depression 04/16/2016 Constitutional No recent illness 2016 Constitutional No chills 03/19/2016 Constitutional No fatigue 03/19/2016 Constitutional No fever 03/19/2016 Eyes No blindness 03/19/2016 Eyes No vision change 03/19/2016 Ears/Nose/Throat/Neck No dizziness 2016 Ears/Nose/Throat/Neck No headache 2016 Cardiovascular No chest pain/pressure 07/2016 Cardiovascular No near-syncope/dizziness 03/19/2016 Cardiovascular No palpitations 2016 Respiratory No chest congestion 2016 Respiratory No cough 03/19/2016 Gastrointestinal No abdominal pain 2016 Gastrointestinal No constipation 2016 Gastrointestinal No diarrhea 03/19/2016 Gastrointestinal No nausea 03/19/2016 Gastrointestinal No vomiting 03/19/2016 Genitourinary/Nephrology No dysuria 03/19 Musculoskeletal No stiffness 03/19/2016 Musculoskeletal No swelling 03/19/2016 Musculoskeletal No muscle weakness 2016 Musculoskeletal No myalgias 03/19/2016 Dermatologic No rash 03/19/2016 Dermatologic No scar 03/19/2016 Neurologic No alteration of consciousness 03/19/2016 Psychiatric No anxiety 03/19/2016 Psychiatric No depression 03/19/2016 Constitutional No recent illness 2015 Constitutional No chills 11/14/2015 Constitutional No fatigue 11/14/2015 Constitutional No fever 11/14/2015 Eyes No blindness 11/14/2015 Eyes No vision change 11/14/2015 Ears/Nose/Throat/Neck No dizziness 2015 Ears/Nose/Throat/Neck No headache 2015 Cardiovascular No chest pain/pressure 03/2015 Cardiovascular No near-syncope/dizziness 11/14/2015 Cardiovascular No palpitations 2015 Respiratory No chest congestion 2015 Respiratory No cough 11/14/2015 Gastrointestinal No abdominal pain 2015 Gastrointestinal No constipation 2015 Gastrointestinal No diarrhea 11/14/2015 Gastrointestinal No nausea 11/14/2015 Gastrointestinal No vomiting 11/14/2015 Genitourinary/Nephrology No dysuria 11/13 Musculoskeletal No stiffness 11/14/2015 Musculoskeletal No swelling 11/14/2015 Musculoskeletal No muscle weakness 2015 Musculoskeletal No myalgias 11/14/2015 Dermatologic No rash 11/14/2015 Dermatologic No scar 11/14/2015 Neurologic No alteration of consciousness 11/14/2015 Psychiatric No anxiety 11/14/2015 Psychiatric No depression 11/14/2015 Constitutional No recent illness 2015 Constitutional No chills 08/14/2015 Constitutional No fatigue 08/14/2015 Constitutional No fever 08/14/2015 Eyes No blindness 08/14/2015 Eyes No vision change 08/14/2015 Ears/Nose/Throat/Neck No dizziness 2015 Ears/Nose/Throat/Neck No headache 2015 Cardiovascular No chest pain/pressure 03/2015 Cardiovascular No near-syncope/dizziness 08/14/2015 Cardiovascular No palpitations 2015 Respiratory No chest congestion 2015 Respiratory No cough 08/14/2015 Gastrointestinal No abdominal pain 2015 Gastrointestinal No constipation 2015 Gastrointestinal No diarrhea 08/14/2015 Gastrointestinal No nausea 08/14/2015 Gastrointestinal No vomiting 08/14/2015 Genitourinary/Nephrology No dysuria 08/13 Musculoskeletal stiffness 08/14/2015 Musculoskeletal No swelling 08/14/2015 Musculoskeletal No muscle weakness 2015 Musculoskeletal No myalgias 08/14/2015 Dermatologic No rash 08/14/2015 Dermatologic No scar 08/14/2015 Neurologic No alteration of consciousness 08/14/2015 Psychiatric No anxiety 08/14/2015 Psychiatric No depression 08/14/2015 Musculoskeletal back pain 08/14/2015 Constitutional No recent illness 2015 Constitutional No chills 07/17/2015 Constitutional No fatigue 07/17/2015 Constitutional No fever 07/17/2015 Eyes No blindness 07/17/2015 Eyes No vision change 07/17/2015 Ears/Nose/Throat/Neck No dizziness 2015 Ears/Nose/Throat/Neck No headache 2015 Cardiovascular No chest pain/pressure 06/2015 Cardiovascular No near-syncope/dizziness 07/17/2015 Cardiovascular No palpitations 2015 Respiratory No chest congestion 2015 Respiratory No cough 07/17/2015 Gastrointestinal No abdominal pain 2015 Gastrointestinal No constipation 2015 Gastrointestinal No diarrhea 07/17/2015 Gastrointestinal No nausea 07/17/2015 Gastrointestinal No vomiting 07/17/2015 Genitourinary/Nephrology No dysuria 07/16 Musculoskeletal No stiffness 07/17/2015 Musculoskeletal No swelling 07/17/2015 Musculoskeletal No muscle weakness 2015 Musculoskeletal No myalgias 07/17/2015 Dermatologic No rash 07/17/2015 Dermatologic No scar 07/17/2015 Neurologic No alteration of consciousness 07/17/2015 Psychiatric No anxiety 07/17/2015 Psychiatric No depression 07/17/2015 Constitutional No chills 03/25/2015 Constitutional No fatigue 03/25/2015 Constitutional No fever 03/25/2015 Eyes No vision change 03/25/2015 Cardiovascular No chest pain/pressure 01/2016 Cardiovascular No palpitations 2015 Respiratory No chest congestion 2015 Respiratory No cough 03/25/2015 Gastrointestinal No abdominal pain 2015 Gastrointestinal No constipation 2015 Gastrointestinal No diarrhea 03/25/2015 Gastrointestinal No nausea 03/25/2015 Gastrointestinal No vomiting 03/25/2015 Genitourinary/Nephrology No dysuria 03/25 Musculoskeletal No stiffness 03/25/2015 Musculoskeletal No swelling 03/25/2015 Musculoskeletal No muscle weakness 2015 Musculoskeletal No myalgias 03/25/2015 Dermatologic No rash 03/25/2015 Dermatologic No scar 03/25/2015 Neurologic No alteration of consciousness 03/25/2015 Psychiatric No anxiety 03/25/2015 Psychiatric No depression 03/25/2015 Eyes No eye discharge 03/25/2015 Eyes No eye erythema 03/25/2015 Ears/Nose/Throat/Neck No nasal allergies 03/25/2015 Ears/Nose/Throat/Neck No nasal discharge 03/25/2015 Ears/Nose/Throat/Neck No sinus congestion 03/25/2015 Ears/Nose/Throat/Neck No sore throat 01/2016 Neurologic No mental status change 2015 Constitutional No recent illness 2014 Constitutional No chills 12/04/2014 Constitutional No fatigue 12/04/2014 Constitutional No fever 12/04/2014 Eyes No blindness 12/04/2014 Eyes No vision change 12/04/2014 Ears/Nose/Throat/Neck No dizziness 2014 Ears/Nose/Throat/Neck No headache 2014 Cardiovascular No chest pain/pressure Cardiovascular No near-syncope/dizziness 12/04/2014 Cardiovascular No palpitations 2014 Respiratory No chest congestion 2014 Respiratory No cough 12/04/2014 Gastrointestinal No abdominal pain 2014 Gastrointestinal No constipation 2014 Gastrointestinal No diarrhea 12/04/2014 Gastrointestinal No nausea 12/04/2014 Gastrointestinal No vomiting 12/04/2014 Genitourinary/Nephrology No dysuria 12/04 Musculoskeletal No stiffness 12/04/2014 Musculoskeletal No swelling 12/04/2014 Musculoskeletal No muscle weakness 2014 Musculoskeletal No myalgias 12/04/2014 Dermatologic No rash 12/04/2014 Dermatologic No scar 12/04/2014 Neurologic No alteration of consciousness 12/04/2014 Psychiatric No anxiety 12/04/2014 Psychiatric No depression 12/04/2014 Constitutional No chills 08/14/2014 Constitutional No fatigue 08/14/2014 Constitutional No fever 08/14/2014 Constitutional No recent illness 2014 Ears/Nose/Throat/Neck No dizziness 2014 Ears/Nose/Throat/Neck No headache 2014 Cardiovascular No chest pain/pressure 04/2014 Cardiovascular No near-syncope/dizziness 08/14/2014 Cardiovascular No palpitations 2014 Respiratory No chest congestion 2014 Respiratory No cough 08/14/2014 Gastrointestinal No abdominal pain 2014 Gastrointestinal No constipation 2014 Gastrointestinal No diarrhea 08/14/2014 Gastrointestinal No nausea 08/14/2014 Gastrointestinal No vomiting 08/14/2014 Genitourinary/Nephrology No dysuria 08/14 Neurologic No alteration of consciousness 08/14/2014 Eyes No blindness 08/14/2014 Eyes No vision change 08/14/2014 Musculoskeletal No stiffness 08/14/2014 Musculoskeletal No swelling 08/14/2014 Musculoskeletal No muscle weakness 2014 Musculoskeletal No myalgias 08/14/2014 Dermatologic No rash 08/14/2014 Dermatologic No scar 08/14/2014 Psychiatric No anxiety 08/14/2014 Psychiatric No depression 08/14/2014 Physical Exam Exam Name System Name Item Name Status Result Effective Dates Notes Full Exam - General 1994 Constitutional general appearance Overall: well developed 10/26/2017 None Full Exam - General 1994 Constitutional general appearance Overall: in no acute distress 10/26/2017 None Full Exam - General 1994 Constitutional general appearance Overall: well nourished 10/26/2017 None Full Exam - General 1994 Constitutional general appearance Hygiene/Attention to Grooming: good hygiene 10/26/2017 None Full Exam - General 1994 Eyes conjunctiva /eyelids Overall: conjunctiva clear 10/26/2017 None Full Exam - General 1994 Eyes conjunctiva /eyelids Overall: cornea clear 10/26/2017 None Full Exam - General 1994 Eyes conjunctiva /eyelids Overall: eyelids normal 10/26/2017 None Full Exam - General 1994 Eyes pupils and irises Overall: pupils equal, round, reactive to light and accomodation 10/26/2017 None Full Exam - General 1994 Ears/Nose/Throat lips/teeth/gingiva Overall: benign lips 10/26/2017 None Full Exam - General 1994 Ears/Nose/Throat oral cavity/pharynx/larynx Overall: oral mucosa clear 10/26/2017 None Full Exam - General 1994 Respiratory auscultation Overall: breath sounds clear bilaterally 10/26/2017 None Full Exam - General 1994 Respiratory respiratory effort/rhythm Overall: no retractions 10/26/2017 None Full Exam - General 1994 Respiratory respiratory effort/rhythm Overall: normal rate 10/26/2017 None Full Exam - General 1994 Cardiovascular extremities Overall: no clubbing 10/26/2017 None Full Exam - General 1994 Cardiovascular auscultation of heart Overall: regular rate 10/26/2017 None Full Exam - General 1994 Cardiovascular auscultation of heart Overall: normal heart sounds 10/26/2017 None Full Exam - General 1994 Cardiovascular auscultation of heart Systolic murmur: holosystolic 10/26/2017 None Full Exam - General 1994 Cardiovascular auscultation of heart Systolic murmur grade: III/ 10/26/2017 None Full Exam - General 1994 Abdomen abdominal exam Overall: no tenderness 10/26/2017 None Full Exam - General 1994 Abdomen abdominal exam Overall: normal bowel sounds 10/26/2017 None Full Exam - General 1994 Lymphatic neck nodes Overall: anterior cervical chain benign 10/26/2017 None Full Exam - General 1994 Lymphatic neck nodes Overall: posterior cervical chain benign 10/26/2017 None Full Exam - General 1994 Neurologic cranial nerves Overall: crainial nerves 2 - 12 grossly intact 10/26/2017 None Full Exam - General 1994 Psychiatric orientation/consciousness Overall: oriented to person, place and time 10/26/2017 None Full Exam - General 1994 Psychiatric mood and affect Overall: normal mood and affect 10/26/2017 None Full Exam - General 1994 Psychiatric appearance Overall: well-groomed, good eye contact 10/26/2017 None Full Exam - General 1994 Constitutional general appearance Overall: well developed 10/11/2017 None Full Exam - General 1994 Constitutional general appearance Overall: in no acute distress 10/11/2017 None Full Exam - General 1994 Constitutional general appearance Overall: well nourished 10/11/2017 None Full Exam - General 1994 Constitutional general appearance Hygiene/Attention to Grooming: good hygiene 10/11/2017 None Full Exam - General 1994 Eyes conjunctiva /eyelids Overall: conjunctiva clear 10/11/2017 None Full Exam - General 1994 Eyes conjunctiva /eyelids Overall: cornea clear 10/11/2017 None Full Exam - General 1994 Eyes conjunctiva /eyelids Overall: eyelids normal 10/11/2017 None Full Exam - General 1994 Eyes pupils and irises Overall: pupils equal, round, reactive to light and accomodation 10/11/2017 None Full Exam - General 1994 Neurologic cranial nerves Overall: crainial nerves 2 - 12 grossly intact 10/11/2017 None Full Exam - General 1994 Psychiatric orientation/consciousness Overall: oriented to person, place and time 10/11/2017 None Full Exam - General 1994 Psychiatric mood and affect Overall: normal mood and affect 10/11/2017 None Full Exam - General 1994 Psychiatric appearance Overall: well-groomed, good eye contact 10/11/2017 None Full Exam - General 1994 Abdomen abdominal exam Contour: rounded 10/11/2017 None Full Exam - General 1994 Constitutional general appearance Overall: well developed 09/22/2017 None Full Exam - General 1994 Constitutional general appearance Overall: in no acute distress 09/22/2017 None Full Exam - General 1994 Constitutional general appearance Overall: well nourished 09/22/2017 None Full Exam - General 1994 Constitutional general appearance Hygiene/Attention to Grooming: good hygiene 09/22/2017 None Full Exam - General 1994 Eyes conjunctiva /eyelids Overall: conjunctiva clear 09/22/2017 None Full Exam - General 1994 Eyes conjunctiva /eyelids Overall: cornea clear 09/22/2017 None Full Exam - General 1994 Eyes conjunctiva /eyelids Overall: eyelids normal 09/22/2017 None Full Exam - General 1994 Eyes pupils and irises Overall: pupils equal, round, reactive to light and accomodation 09/22/2017 None Full Exam - General 1994 Ears/Nose/Throat lips/teeth/gingiva Overall: benign lips 09/22/2017 None Full Exam - General 1994 Ears/Nose/Throat oral cavity/pharynx/larynx Overall: oral mucosa clear 09/22/2017 None Full Exam - General 1994 Respiratory auscultation Overall: breath sounds clear bilaterally 09/22/2017 None Full Exam - General 1994 Respiratory respiratory effort/rhythm Overall: no retractions 09/22/2017 None Full Exam - General 1994 Respiratory respiratory effort/rhythm Overall: normal rate 09/22/2017 None Full Exam - General 1994 Cardiovascular extremities Overall: no clubbing 09/22/2017 None Full Exam - General 1994 Cardiovascular auscultation of heart Overall: regular rate 09/22/2017 None Full Exam - General 1994 Cardiovascular auscultation of heart Overall: normal heart sounds 09/22/2017 None Full Exam - General 1994 Cardiovascular auscultation of heart Systolic murmur: holosystolic 09/22/2017 None Full Exam - General 1994 Cardiovascular auscultation of heart Systolic murmur grade: III/ 09/22/2017 None Full Exam - General 1994 Abdomen abdominal exam Overall: no tenderness 09/22/2017 None Full Exam - General 1994 Abdomen abdominal exam Overall: normal bowel sounds 09/22/2017 None Full Exam - General 1994 Lymphatic neck nodes Overall: anterior cervical chain benign 09/22/2017 None Full Exam - General 1994 Lymphatic neck nodes Overall: posterior cervical chain benign 09/22/2017 None Full Exam - General 1994 Neurologic cranial nerves Overall: crainial nerves 2 - 12 grossly intact 09/22/2017 None Full Exam - General 1994 Psychiatric orientation/consciousness Overall: oriented to person, place and time 09/22/2017 None Full Exam - General 1994 Psychiatric mood and affect Overall: normal mood and affect 09/22/2017 None Full Exam - General 1994 Psychiatric appearance Overall: well-groomed, good eye contact 09/22/2017 None Full Exam - General 1994 Constitutional general appearance Overall: well developed 07/06/2017 None Full Exam - General 1994 Constitutional general appearance Overall: in no acute distress 07/06/2017 None Full Exam - General 1994 Constitutional general appearance Overall: well nourished 07/06/2017 None Full Exam - General 1994 Constitutional general appearance Hygiene/Attention to Grooming: good hygiene 07/06/2017 None Full Exam - General 1994 Eyes conjunctiva /eyelids Overall: conjunctiva clear 07/06/2017 None Full Exam - General 1994 Eyes conjunctiva /eyelids Overall: cornea clear 07/06/2017 None Full Exam - General 1994 Eyes conjunctiva /eyelids Overall: eyelids normal 07/06/2017 None Full Exam - General 1994 Eyes pupils and irises Overall: pupils equal, round, reactive to light and accomodation 07/06/2017 None Full Exam - General 1994 Ears/Nose/Throat lips/teeth/gingiva Overall: benign lips 07/06/2017 None Full Exam - General 1994 Ears/Nose/Throat oral cavity/pharynx/larynx Overall: oral mucosa clear 07/06/2017 None Full Exam - General 1994 Respiratory auscultation Overall: breath sounds clear bilaterally 07/06/2017 None Full Exam - General 1994 Respiratory respiratory effort/rhythm Overall: no retractions 07/06/2017 None Full Exam - General 1994 Respiratory respiratory effort/rhythm Overall: normal rate 07/06/2017 None Full Exam - General 1994 Cardiovascular extremities Overall: no clubbing 07/06/2017 None Full Exam - General 1994 Cardiovascular auscultation of heart Overall: regular rate 07/06/2017 None Full Exam - General 1994 Cardiovascular auscultation of heart Overall: normal heart sounds 07/06/2017 None Full Exam - General 1994 Cardiovascular auscultation of heart Systolic murmur: holosystolic 07/06/2017 None Full Exam - General 1994 Cardiovascular auscultation of heart Systolic murmur grade: III/ 07/06/2017 None Full Exam - General 1994 Lymphatic neck nodes Overall: anterior cervical chain benign 07/06/2017 None Full Exam - General 1994 Lymphatic neck nodes Overall: posterior cervical chain benign 07/06/2017 None Full Exam - General 1994 Neurologic cranial nerves Overall: crainial nerves 2 - 12 grossly intact 07/06/2017 None Full Exam - General 1994 Psychiatric orientation/consciousness Overall: oriented to person, place and time 07/06/2017 None Full Exam - General 1994 Psychiatric mood and affect Overall: normal mood and affect 07/06/2017 None Full Exam - General 1994 Psychiatric appearance Overall: well-groomed, good eye contact 07/06/2017 None Full Exam - General 1994 Abdomen abdominal exam Overall: no tenderness 07/06/2017 None Full Exam - General 1994 Abdomen abdominal exam Overall: normal bowel sounds 07/06/2017 None Full Exam - General 1994 Constitutional general appearance Overall: well developed 06/03/2017 None Full Exam - General 1994 Constitutional general appearance Overall: in no acute distress 06/03/2017 None Full Exam - General 1994 Constitutional general appearance Overall: well nourished 06/03/2017 None Full Exam - General 1994 Constitutional general appearance Hygiene/Attention to Grooming: good hygiene 06/03/2017 None Full Exam - General 1994 Eyes conjunctiva /eyelids Overall: conjunctiva clear 06/03/2017 None Full Exam - General 1994 Eyes conjunctiva /eyelids Overall: cornea clear 06/03/2017 None Full Exam - General 1994 Eyes conjunctiva /eyelids Overall: eyelids normal 06/03/2017 None Full Exam - General 1994 Eyes pupils and irises Overall: pupils equal, round, reactive to light and accomodation 06/03/2017 None Full Exam - General 1994 Ears/Nose/Throat lips/teeth/gingiva Overall: benign lips 06/03/2017 None Full Exam - General 1994 Ears/Nose/Throat oral cavity/pharynx/larynx Overall: oral mucosa clear 06/03/2017 None Full Exam - General 1994 Respiratory auscultation Overall: breath sounds clear bilaterally 06/03/2017 None Full Exam - General 1994 Respiratory respiratory effort/rhythm Overall: no retractions 06/03/2017 None Full Exam - General 1994 Respiratory respiratory effort/rhythm Overall: normal rate 06/03/2017 None Full Exam - General 1994 Cardiovascular extremities Overall: no clubbing 06/03/2017 None Full Exam - General 1994 Cardiovascular auscultation of heart Overall: regular rate 06/03/2017 None Full Exam - General 1994 Cardiovascular auscultation of heart Overall: normal heart sounds 06/03/2017 None Full Exam - General 1994 Lymphatic neck nodes Overall: anterior cervical chain benign 06/03/2017 None Full Exam - General 1994 Lymphatic neck nodes Overall: posterior cervical chain benign 06/03/2017 None Full Exam - General 1994 Neurologic cranial nerves Overall: crainial nerves 2 - 12 grossly intact 06/03/2017 None Full Exam - General 1994 Psychiatric orientation/consciousness Overall: oriented to person, place and time 06/03/2017 None Full Exam - General 1994 Psychiatric mood and affect Overall: normal mood and affect 06/03/2017 None Full Exam - General 1994 Psychiatric appearance Overall: well-groomed, good eye contact 06/03/2017 None Full Exam - General 1994 Cardiovascular auscultation of heart Systolic murmur: holosystolic 06/03/2017 None Full Exam - General 1994 Cardiovascular auscultation of heart Systolic murmur grade: III/ 06/03/2017 None Full Exam - General 1994 Constitutional general appearance Overall: well developed 05/12/2017 None Full Exam - General 1994 Constitutional general appearance Overall: in no acute distress 05/12/2017 None Full Exam - General 1994 Constitutional general appearance Overall: well nourished 05/12/2017 None Full Exam - General 1994 Eyes conjunctiva /eyelids Overall: conjunctiva clear 05/12/2017 None Full Exam - General 1995 Eyes conjunctiva /eyelids Overall: cornea clear 05/12/2017 None Full Exam - General 1994 Eyes conjunctiva /eyelids Overall: eyelids normal 05/12/2017 None Full Exam - General 1994 Constitutional general appearance Hygiene/Attention to Grooming: good hygiene 05/12/2017 None Full Exam - General 1994 Eyes pupils and irises Overall: pupils equal, round, reactive to light and accomodation 05/12/2017 None Full Exam - General 1994 Ears/Nose/Throat lips/teeth/gingiva Overall: benign lips 05/12/2017 None Full Exam - General 1994 Ears/Nose/Throat oral cavity/pharynx/larynx Overall: oral mucosa clear 05/12/2017 None Full Exam - General 1994 Respiratory auscultation Overall: breath sounds clear bilaterally 05/12/2017 None Full Exam - General 1994 Respiratory respiratory effort/rhythm Overall: no retractions 05/12/2017 None Full Exam - General 1994 Respiratory respiratory effort/rhythm Overall: normal rate 05/12/2017 None Full Exam - General 1994 Cardiovascular extremities Overall: no clubbing 05/12/2017 None Full Exam - General 1994 Cardiovascular auscultation of heart Overall: regular rate 05/12/2017 None Full Exam - General 1994 Cardiovascular auscultation of heart Overall: normal heart sounds 05/12/2017 None Full Exam - General 1994 Lymphatic neck nodes Overall: anterior cervical chain benign 05/12/2017 None Full Exam - General 1994 Lymphatic neck nodes Overall: posterior cervical chain benign 05/12/2017 None Full Exam - General 1994 Neurologic cranial nerves Overall: crainial nerves 2 - 12 grossly intact 05/12/2017 None Full Exam - General 1994 Psychiatric orientation/consciousness Overall: oriented to person, place and time 05/12/2017 None Full Exam - General 1994 Psychiatric mood and affect Overall: normal mood and affect 05/12/2017 None Full Exam - General 1994 Psychiatric appearance Overall: well-groomed, good eye contact 05/12/2017 None Full Exam - General 1994 Constitutional general appearance Overall: well developed 04/15/2017 None Full Exam - General 1994 Constitutional general appearance Overall: in no acute distress 04/15/2017 None Full Exam - General 1994 Constitutional general appearance Overall: well nourished 04/15/2017 None Full Exam - General 1994 Constitutional general appearance Hygiene/Attention to Grooming: good hygiene 04/15/2017 None Full Exam - General 1995 Eyes conjunctiva /eyelids Overall: conjunctiva clear 04/15/2017 None Full Exam - General 1994 Eyes conjunctiva /eyelids Overall: cornea clear 04/15/2017 None Full Exam - General 1994 Eyes conjunctiva /eyelids Overall: eyelids normal 04/15/2017 None Full Exam - General 1994 Eyes pupils and irises Overall: pupils equal, round, reactive to light and accomodation 04/15/2017 None Full Exam - General 1994 Ears/Nose/Throat otoscopic exam Overall: external auditory canals clear 04/15/2017 None Full Exam - General 1994 Ears/Nose/Throat otoscopic exam Overall: tympanic membranes clear 04/15/2017 None Full Exam - General 1994 Ears/Nose/Throat lips/teeth/gingiva Overall: benign lips 04/15/2017 None Full Exam - General 1994 Ears/Nose/Throat oral cavity/pharynx/larynx Overall: oral mucosa clear 04/15/2017 None Full Exam - General 1994 Ears/Nose/Throat oral cavity/pharynx/larynx Overall: oropharyngeal mucosa clear 04/15/2017 None Full Exam - General 1994 Respiratory auscultation Overall: breath sounds clear bilaterally 04/15/2017 None Full Exam - General 1994 Respiratory respiratory effort/rhythm Overall: no retractions 04/15/2017 None Full Exam - General 1994 Respiratory respiratory effort/rhythm Overall: normal rate 04/15/2017 None Full Exam - General 1994 Cardiovascular extremities Overall: no clubbing 04/15/2017 None Full Exam - General 1994 Cardiovascular auscultation of heart Overall: regular rate 04/15/2017 None Full Exam - General 1994 Cardiovascular auscultation of heart Overall: normal heart sounds 04/15/2017 None Full Exam - General 1994 Lymphatic neck nodes Overall: anterior cervical chain benign 04/15/2017 None Full Exam - General 1994 Lymphatic neck nodes Overall: posterior cervical chain benign 04/15/2017 None Full Exam - General 1994 Neurologic deep tendon reflexes Overall: deep tendon reflexes intact 04/15/2017 None Full Exam - General 1994 Neurologic cranial nerves Overall: crainial nerves 2 - 12 grossly intact 04/15/2017 None Full Exam - General 1994 Psychiatric orientation/consciousness Overall: oriented to person, place and time 04/15/2017 None Full Exam - General 1994 Psychiatric mood and affect Overall: normal mood and affect 04/15/2017 None Full Exam - General 1994 Constitutional general appearance Overall: well developed 03/19/2017 None Full Exam - General 1994 Constitutional general appearance Overall: in no acute distress 03/19/2017 None Full Exam - General 1994 Constitutional general appearance Overall: well nourished 03/19/2017 None Full Exam - General 1994 Constitutional general appearance Hygiene/Attention to Grooming: good hygiene 03/19/2017 None Full Exam - General 1994 Eyes conjunctiva /eyelids Overall: conjunctiva clear 03/19/2017 None Full Exam - General 1994 Eyes conjunctiva /eyelids Overall: cornea clear 03/19/2017 None Full Exam - General 1994 Eyes conjunctiva /eyelids Overall: eyelids normal 03/19/2017 None Full Exam - General 1994 Eyes pupils and irises Overall: pupils equal, round, reactive to light and accomodation 03/19/2017 None Full Exam - General 1994 Ears/Nose/Throat otoscopic exam Overall: external auditory canals clear 03/19/2017 None Full Exam - General 1994 Ears/Nose/Throat otoscopic exam Overall: tympanic membranes clear 03/19/2017 None Full Exam - General 1994 Ears/Nose/Throat lips/teeth/gingiva Overall: benign lips 03/19/2017 None Full Exam - General 1994 Ears/Nose/Throat oral cavity/pharynx/larynx Overall: oral mucosa clear 03/19/2017 None Full Exam - General 1994 Ears/Nose/Throat oral cavity/pharynx/larynx Overall: oropharyngeal mucosa clear 03/19/2017 None Full Exam - General 1994 Respiratory auscultation Overall: breath sounds clear bilaterally 03/19/2017 None Full Exam - General 1994 Respiratory auscultation Diffuse: diminished 03/19/2017 None Full Exam - General 1994 Respiratory respiratory effort/rhythm Overall: no retractions 03/19/2017 None Full Exam - General 1994 Respiratory respiratory effort/rhythm Overall: normal rate 03/19/2017 None Full Exam - General 1994 Cardiovascular extremities Overall: no clubbing 03/19/2017 None Full Exam - General 1994 Cardiovascular auscultation of heart Overall: regular rate 03/19/2017 None Full Exam - General 1994 Cardiovascular auscultation of heart Overall: normal heart sounds 03/19/2017 None Full Exam - General 1994 Abdomen abdominal exam Overall: no tenderness 03/19/2017 None Full Exam - General 1994 Abdomen abdominal exam Overall: normal bowel sounds 03/19/2017 None Full Exam - General 1994 Neurologic deep tendon reflexes Overall: deep tendon reflexes intact 03/19/2017 None Full Exam - General 1994 Neurologic cranial nerves Overall: crainial nerves 2 - 12 grossly intact 03/19/2017 None Full Exam - General 1994 Psychiatric orientation/consciousness Overall: oriented to person, place and time 03/19/2017 None Full Exam - General 1994 Psychiatric mood and affect Overall: normal mood and affect 03/19/2017 None Full Exam - General 1994 Lymphatic neck nodes Overall: anterior cervical chain benign 03/19/2017 None Full Exam - General 1994 Lymphatic neck nodes Overall: posterior cervical chain benign 03/19/2017 None Full Exam - General 1994 Constitutional general appearance Overall: well developed 02/03/2017 None Full Exam - General 1994 Constitutional general appearance Overall: in no acute distress 02/03/2017 None Full Exam - General 1994 Constitutional general appearance Overall: well nourished 02/03/2017 None Full Exam - General 1994 Constitutional general appearance Hygiene/Attention to Grooming: good hygiene 02/03/2017 None Full Exam - General 1994 Eyes conjunctiva /eyelids Overall: conjunctiva clear 02/03/2017 None Full Exam - General 1994 Eyes conjunctiva /eyelids Overall: cornea clear 02/03/2017 None Full Exam - General 1994 Eyes conjunctiva /eyelids Overall: eyelids normal 02/03/2017 None Full Exam - General 1994 Eyes pupils and irises Overall: pupils equal, round, reactive to light and accomodation 02/03/2017 None Full Exam - General 1994 Ears/Nose/Throat otoscopic exam Overall: external auditory canals clear 02/03/2017 None Full Exam - General 1994 Ears/Nose/Throat otoscopic exam Overall: tympanic membranes clear 02/03/2017 None Full Exam - General 1994 Ears/Nose/Throat lips/teeth/gingiva Overall: benign lips 02/03/2017 None Full Exam - General 1994 Ears/Nose/Throat oral cavity/pharynx/larynx Overall: oral mucosa clear 02/03/2017 None Full Exam - General 1994 Ears/Nose/Throat oral cavity/pharynx/larynx Overall: oropharyngeal mucosa clear 02/03/2017 None Full Exam - General 1994 Respiratory auscultation Overall: breath sounds clear bilaterally 02/03/2017 None Full Exam - General 1994 Respiratory auscultation Diffuse: diminished 02/03/2017 None Full Exam - General 1994 Respiratory respiratory effort/rhythm Overall: no retractions 02/03/2017 None Full Exam - General 1994 Respiratory respiratory effort/rhythm Overall: normal rate 02/03/2017 None Full Exam - General 1994 Cardiovascular extremities Overall: no clubbing 02/03/2017 None Full Exam - General 1994 Cardiovascular auscultation of heart Overall: regular rate 02/03/2017 None Full Exam - General 1994 Cardiovascular auscultation of heart Overall: normal heart sounds 02/03/2017 None Full Exam - General 1994 Abdomen abdominal exam Overall: no tenderness 02/03/2017 None Full Exam - General 1994 Abdomen abdominal exam Overall: normal bowel sounds 02/03/2017 None Full Exam - General 1994 Neurologic deep tendon reflexes Overall: deep tendon reflexes intact 02/03/2017 None Full Exam - General 1994 Neurologic cranial nerves Overall: crainial nerves 2 - 12 grossly intact 02/03/2017 None Full Exam - General 1994 Psychiatric orientation/consciousness Overall: oriented to person, place and time 02/03/2017 None Full Exam - General 1994 Psychiatric mood and affect Overall: normal mood and affect 02/03/2017 None Full Exam - General 1994 Lymphatic neck nodes Overall: anterior cervical chain benign 02/03/2017 None Full Exam - General 1994 Lymphatic neck nodes Overall: posterior cervical chain benign 02/03/2017 None Full Exam - General 1994 Constitutional general appearance Hygiene/Attention to Grooming: good hygiene 01/07/2017 None Full Exam - General 1994 Eyes conjunctiva /eyelids Overall: conjunctiva clear 01/07/2017 None Full Exam - General 1994 Eyes conjunctiva /eyelids Overall: cornea clear 01/07/2017 None Full Exam - General 1994 Eyes conjunctiva /eyelids Overall: eyelids normal 01/07/2017 None Full Exam - General 1994 Eyes pupils and irises Overall: pupils equal, round, reactive to light and accomodation 01/07/2017 None Full Exam - General 1994 Ears/Nose/Throat otoscopic exam Overall: external auditory canals clear 01/07/2017 None Full Exam - General 1994 Ears/Nose/Throat otoscopic exam Overall: tympanic membranes clear 01/07/2017 None Full Exam - General 1994 Ears/Nose/Throat lips/teeth/gingiva Overall: benign lips 01/07/2017 None Full Exam - General 1994 Ears/Nose/Throat oral cavity/pharynx/larynx Overall: oral mucosa clear 01/07/2017 None Full Exam - General 1994 Ears/Nose/Throat oral cavity/pharynx/larynx Overall: oropharyngeal mucosa clear 01/07/2017 None Full Exam - General 1994 Respiratory auscultation Overall: breath sounds clear bilaterally 01/07/2017 None Full Exam - General 1994 Respiratory respiratory effort/rhythm Overall: no retractions 01/07/2017 None Full Exam - General 1994 Respiratory respiratory effort/rhythm Overall: normal rate 01/07/2017 None Full Exam - General 1994 Cardiovascular extremities Overall: no clubbing 01/07/2017 None Full Exam - General 1994 Cardiovascular auscultation of heart Overall: regular rate 01/07/2017 None Full Exam - General 1994 Cardiovascular auscultation of heart Overall: normal heart sounds 01/07/2017 None Full Exam - General 1994 Abdomen abdominal exam Overall: no tenderness 01/07/2017 None Full Exam - General 1994 Abdomen abdominal exam Overall: normal bowel sounds 01/07/2017 None Full Exam - General 1994 Neurologic deep tendon reflexes Overall: deep tendon reflexes intact 01/07/2017 None Full Exam - General 1994 Neurologic cranial nerves Overall: crainial nerves 2 - 12 grossly intact 01/07/2017 None Full Exam - General 1994 Psychiatric orientation/consciousness Overall: oriented to person, place and time 01/07/2017 None Full Exam - General 1994 Psychiatric mood and affect Overall: normal mood and affect 01/07/2017 None Full Exam - General 1994 Constitutional general appearance Overall: well developed 01/07/2017 None Full Exam - General 1994 Constitutional general appearance Overall: in no acute distress 01/07/2017 None Full Exam - General 1994 Constitutional general appearance Overall: well nourished 01/07/2017 None Full Exam - General 1994 Respiratory auscultation Diffuse: diminished 01/07/2017 None Full Exam - General 1994 Constitutional general appearance Development: well developed 12/17/2016 None Full Exam - General 1994 Constitutional general appearance Development: appears stated age 1012/17/2016 None Full Exam - General 1994 Constitutional general appearance Hygiene/Attention to Grooming: good hygiene 12/17/2016 None Full Exam - General 1994 Eyes conjunctiva /eyelids Overall: conjunctiva clear 12/17/2016 None Full Exam - General 1994 Eyes conjunctiva /eyelids Overall: cornea clear 12/17/2016 None Full Exam - General 1994 Eyes conjunctiva /eyelids Overall: eyelids normal 12/17/2016 None Full Exam - General 1994 Eyes pupils and irises Overall: pupils equal, round, reactive to light and accomodation 12/17/2016 None Full Exam - General 1994 Ears/Nose/Throat otoscopic exam Overall: external auditory canals clear 12/17/2016 None Full Exam - General 1994 Ears/Nose/Throat otoscopic exam Overall: tympanic membranes clear 12/17/2016 None Full Exam - General 1994 Ears/Nose/Throat lips/teeth/gingiva Overall: benign lips 12/17/2016 None Full Exam - General 1994 Ears/Nose/Throat lips/teeth/gingiva Overall: normal dentition 12/17/2016 None Full Exam - General 1994 Ears/Nose/Throat oral cavity/pharynx/larynx Overall: oral mucosa clear 12/17/2016 None Full Exam - General 1994 Ears/Nose/Throat oral cavity/pharynx/larynx Overall: oropharyngeal mucosa clear 12/17/2016 None Full Exam - General 1994 Ears/Nose/Throat oral cavity/pharynx/larynx Overall: hypopharynx benign 12/17/2016 None Full Exam - General 1994 Ears/Nose/Throat oral cavity/pharynx/larynx Overall: no masses 12/17/2016 None Full Exam - General 1994 Respiratory auscultation Overall: breath sounds clear bilaterally 12/17/2016 None Full Exam - General 1994 Respiratory respiratory effort/rhythm Overall: no retractions 12/17/2016 None Full Exam - General 1994 Respiratory respiratory effort/rhythm Overall: normal rate 12/17/2016 None Full Exam - General 1994 Cardiovascular extremities Overall: no clubbing 12/17/2016 None Full Exam - General 1994 Cardiovascular auscultation of heart Overall: regular rate 12/17/2016 None Full Exam - General 1994 Cardiovascular auscultation of heart Overall: normal heart sounds 12/17/2016 None Full Exam - General 1994 Abdomen abdominal exam Overall: no tenderness 12/17/2016 None Full Exam - General 1994 Abdomen abdominal exam Overall: normal bowel sounds 12/17/2016 None Full Exam - General 1994 Neurologic deep tendon reflexes Overall: deep tendon reflexes intact 12/17/2016 None Full Exam - General 1994 Neurologic cranial nerves Overall: crainial nerves 2 - 12 grossly intact 12/17/2016 None Full Exam - General 1994 Psychiatric orientation/consciousness Overall: oriented to person, place and time 12/17/2016 None Full Exam - General 1994 Psychiatric mood and affect Overall: normal mood and affect 12/17/2016 None Full Exam - General 1994 Constitutional general appearance Development: well developed 09/14/2016 None Full Exam - General 1994 Constitutional general appearance Development: appears stated age 0709/14/2016 None Full Exam - General 1994 Constitutional general appearance Hygiene/Attention to Grooming: good hygiene 09/14/2016 None Full Exam - General 1994 Eyes conjunctiva /eyelids Overall: conjunctiva clear 09/14/2016 None Full Exam - General 1994 Eyes conjunctiva /eyelids Overall: cornea clear 09/14/2016 None Full Exam - General 1994 Eyes conjunctiva /eyelids Overall: eyelids normal 09/14/2016 None Full Exam - General 1994 Eyes pupils and irises Overall: pupils equal, round, reactive to light and accomodation 09/14/2016 None Full Exam - General 1994 Ears/Nose/Throat otoscopic exam Overall: external auditory canals clear 09/14/2016 None Full Exam - General 1994 Ears/Nose/Throat otoscopic exam Overall: tympanic membranes clear 09/14/2016 None Full Exam - General 1994 Ears/Nose/Throat lips/teeth/gingiva Overall: benign lips 09/14/2016 None Full Exam - General 1994 Ears/Nose/Throat lips/teeth/gingiva Overall: normal dentition 09/14/2016 None Full Exam - General 1994 Ears/Nose/Throat oral cavity/pharynx/larynx Overall: oral mucosa clear 09/14/2016 None Full Exam - General 1994 Ears/Nose/Throat oral cavity/pharynx/larynx Overall: oropharyngeal mucosa clear 09/14/2016 None Full Exam - General 1994 Ears/Nose/Throat oral cavity/pharynx/larynx Overall: hypopharynx benign 09/14/2016 None Full Exam - General 1994 Ears/Nose/Throat oral cavity/pharynx/larynx Overall: no masses 09/14/2016 None Full Exam - General 1994 Respiratory auscultation Overall: breath sounds clear bilaterally 09/14/2016 None Full Exam - General 1994 Respiratory respiratory effort/rhythm Overall: no retractions 09/14/2016 None Full Exam - General 1994 Respiratory respiratory effort/rhythm Overall: normal rate 09/14/2016 None Full Exam - General 1994 Cardiovascular extremities Overall: no clubbing 09/14/2016 None Full Exam - General 1994 Cardiovascular auscultation of heart Overall: regular rate 09/14/2016 None Full Exam - General 1994 Cardiovascular auscultation of heart Overall: normal heart sounds 09/14/2016 None Full Exam - General 1994 Abdomen abdominal exam Overall: no tenderness 09/14/2016 None Full Exam - General 1994 Abdomen abdominal exam Overall: normal bowel sounds 09/14/2016 None Full Exam - General 1994 Lymphatic neck nodes Overall: anterior cervical chain benign 09/14/2016 None Full Exam - General 1994 Lymphatic neck nodes Overall: posterior cervical chain benign 09/14/2016 None Full Exam - General 1994 Neurologic deep tendon reflexes Overall: deep tendon reflexes intact 09/14/2016 None Full Exam - General 1994 Neurologic cranial nerves Overall: crainial nerves 2 - 12 grossly intact 09/14/2016 None Full Exam - General 1994 Psychiatric orientation/consciousness Overall: oriented to person, place and time 09/14/2016 None Full Exam - General 1994 Psychiatric mood and affect Overall: normal mood and affect 09/14/2016 None Full Exam - General 1994 Constitutional general appearance Development: well developed 06/18/2016 None Full Exam - General 1994 Constitutional general appearance Development: appears stated age 0406/18/2016 None Full Exam - General 1994 Constitutional general appearance Hygiene/Attention to Grooming: good hygiene 06/18/2016 None Full Exam - General 1994 Eyes conjunctiva /eyelids Overall: conjunctiva clear 06/18/2016 None Full Exam - General 1994 Eyes conjunctiva /eyelids Overall: cornea clear 06/18/2016 None Full Exam - General 1994 Eyes conjunctiva /eyelids Overall: eyelids normal 06/18/2016 None Full Exam - General 1994 Eyes pupils and irises Overall: pupils equal, round, reactive to light and accomodation 06/18/2016 None Full Exam - General 1994 Ears/Nose/Throat otoscopic exam Overall: external auditory canals clear 06/18/2016 None Full Exam - General 1994 Ears/Nose/Throat otoscopic exam Overall: tympanic membranes clear 06/18/2016 None Full Exam - General 1994 Ears/Nose/Throat lips/teeth/gingiva Overall: benign lips 06/18/2016 None Full Exam - General 1994 Ears/Nose/Throat lips/teeth/gingiva Overall: normal dentition 06/18/2016 None Full Exam - General 1994 Ears/Nose/Throat oral cavity/pharynx/larynx Overall: oral mucosa clear 06/18/2016 None Full Exam - General 1994 Ears/Nose/Throat oral cavity/pharynx/larynx Overall: oropharyngeal mucosa clear 06/18/2016 None Full Exam - General 1994 Ears/Nose/Throat oral cavity/pharynx/larynx Overall: hypopharynx benign 06/18/2016 None Full Exam - General 1994 Ears/Nose/Throat oral cavity/pharynx/larynx Overall: no masses 06/18/2016 None Full Exam - General 1994 Respiratory auscultation Overall: breath sounds clear bilaterally 06/18/2016 None Full Exam - General 1994 Respiratory respiratory effort/rhythm Overall: no retractions 06/18/2016 None Full Exam - General 1994 Respiratory respiratory effort/rhythm Overall: normal rate 06/18/2016 None Full Exam - General 1994 Cardiovascular extremities Overall: no clubbing 06/18/2016 None Full Exam - General 1994 Cardiovascular auscultation of heart Overall: regular rate 06/18/2016 None Full Exam - General 1994 Cardiovascular auscultation of heart Overall: normal heart sounds 06/18/2016 None Full Exam - General 1994 Abdomen abdominal exam Overall: no tenderness 06/18/2016 None Full Exam - General 1994 Abdomen abdominal exam Overall: normal bowel sounds 06/18/2016 None Full Exam - General 1994 Neurologic deep tendon reflexes Overall: deep tendon reflexes intact 06/18/2016 None Full Exam - General 1994 Neurologic cranial nerves Overall: crainial nerves 2 - 12 grossly intact 06/18/2016 None Full Exam - General 1994 Psychiatric orientation/consciousness Overall: oriented to person, place and time 06/18/2016 None Full Exam - General 1994 Psychiatric mood and affect Overall: normal mood and affect 06/18/2016 None Full Exam - General 1994 Lymphatic neck nodes Overall: anterior cervical chain benign 06/18/2016 None Full Exam - General 1994 Lymphatic neck nodes Overall: posterior cervical chain benign 06/18/2016 None Full Exam - General 1994 Constitutional general appearance Development: well developed 04/16/2016 None Full Exam - General 1994 Constitutional general appearance Development: appears stated age 0204/16/2016 None Full Exam - General 1994 Constitutional general appearance Hygiene/Attention to Grooming: good hygiene 04/16/2016 None Full Exam - General 1994 Eyes conjunctiva /eyelids Overall: conjunctiva clear 04/16/2016 None Full Exam - General 1994 Eyes conjunctiva /eyelids Overall: cornea clear 04/16/2016 None Full Exam - General 1994 Eyes conjunctiva /eyelids Overall: eyelids normal 04/16/2016 None Full Exam - General 1994 Eyes pupils and irises Overall: pupils equal, round, reactive to light and accomodation 04/16/2016 None Full Exam - General 1994 Ears/Nose/Throat otoscopic exam Overall: external auditory canals clear 04/16/2016 None Full Exam - General 1994 Ears/Nose/Throat otoscopic exam Overall: tympanic membranes clear 04/16/2016 None Full Exam - General 1995 Ears/Nose/Throat lips/teeth/gingiva Overall: benign lips 04/16/2016 None Full Exam - General 1995 Ears/Nose/Throat lips/teeth/gingiva Overall: normal dentition 04/16/2016 None Full Exam - General 1995 Ears/Nose/Throat oral cavity/pharynx/larynx Overall: oral mucosa clear 04/16/2016 None Full Exam - General 1995 Ears/Nose/Throat oral cavity/pharynx/larynx Overall: oropharyngeal mucosa clear 04/16/2016 None Full Exam - General 1995 Ears/Nose/Throat oral cavity/pharynx/larynx Overall: hypopharynx benign 04/16/2016 None Full Exam - General 1994 Ears/Nose/Throat oral cavity/pharynx/larynx Overall: no masses 04/16/2016 None Full Exam - General 1994 Respiratory auscultation Overall: breath sounds clear bilaterally 04/16/2016 None Full Exam - General 1994 Respiratory respiratory effort/rhythm Overall: no retractions 04/16/2016 None Full Exam - General 1994 Respiratory respiratory effort/rhythm Overall: normal rate 04/16/2016 None Full Exam - General 1994 Cardiovascular extremities Overall: no clubbing 04/16/2016 None Full Exam - General 1994 Cardiovascular auscultation of heart Overall: regular rate 04/16/2016 None Full Exam - General 1994 Cardiovascular auscultation of heart Overall: normal heart sounds 04/16/2016 None Full Exam - General 1994 Abdomen abdominal exam Overall: no tenderness 04/16/2016 None Full Exam - General 1994 Abdomen abdominal exam Overall: normal bowel sounds 04/16/2016 None Full Exam - General 1994 Neurologic deep tendon reflexes Overall: deep tendon reflexes intact 04/16/2016 None Full Exam - General 1994 Neurologic cranial nerves Overall: crainial nerves 2 - 12 grossly intact 04/16/2016 None Full Exam - General 1994 Psychiatric orientation/consciousness Overall: oriented to person, place and time 04/16/2016 None Full Exam - General 1994 Psychiatric mood and affect Overall: normal mood and affect 04/16/2016 None Full Exam - General 1994 Lymphatic neck nodes Overall: anterior cervical chain benign 04/16/2016 None Full Exam - General 1994 Constitutional general appearance Development: well developed 03/19/2016 None Full Exam - General 1994 Constitutional general appearance Development: appears stated age 0103/19/2016 None Full Exam - General 1994 Constitutional general appearance Hygiene/Attention to Grooming: good hygiene 03/19/2016 None Full Exam - General 1994 Eyes conjunctiva /eyelids Overall: conjunctiva clear 03/19/2016 None Full Exam - General 1994 Eyes conjunctiva /eyelids Overall: cornea clear 03/19/2016 None Full Exam - General 1994 Eyes conjunctiva /eyelids Overall: eyelids normal 03/19/2016 None Full Exam - General 1994 Eyes pupils and irises Overall: pupils equal, round, reactive to light and accomodation 03/19/2016 None Full Exam - General 1994 Ears/Nose/Throat otoscopic exam Overall: external auditory canals clear 03/19/2016 None Full Exam - General 1994 Ears/Nose/Throat otoscopic exam Overall: tympanic membranes clear 03/19/2016 None Full Exam - General 1994 Ears/Nose/Throat lips/teeth/gingiva Overall: benign lips 03/19/2016 None Full Exam - General 1994 Ears/Nose/Throat lips/teeth/gingiva Overall: normal dentition 03/19/2016 None Full Exam - General 1994 Ears/Nose/Throat oral cavity/pharynx/larynx Overall: oral mucosa clear 03/19/2016 None Full Exam - General 1995 Ears/Nose/Throat oral cavity/pharynx/larynx Overall: oropharyngeal mucosa clear 03/19/2016 None Full Exam - General 1994 Ears/Nose/Throat oral cavity/pharynx/larynx Overall: hypopharynx benign 03/19/2016 None Full Exam - General 1994 Ears/Nose/Throat oral cavity/pharynx/larynx Overall: no masses 03/19/2016 None Full Exam - General 1994 Respiratory auscultation Overall: breath sounds clear bilaterally 03/19/2016 None Full Exam - General 1994 Respiratory respiratory effort/rhythm Overall: no retractions 03/19/2016 None Full Exam - General 1994 Respiratory respiratory effort/rhythm Overall: normal rate 03/19/2016 None Full Exam - General 1994 Cardiovascular extremities Overall: no clubbing 03/19/2016 None Full Exam - General 1994 Cardiovascular auscultation of heart Overall: regular rate 03/19/2016 None Full Exam - General 1994 Cardiovascular auscultation of heart Overall: normal heart sounds 03/19/2016 None Full Exam - General 1994 Abdomen abdominal exam Overall: no tenderness 03/19/2016 None Full Exam - General 1994 Abdomen abdominal exam Overall: normal bowel sounds 03/19/2016 None Full Exam - General 1994 Neurologic deep tendon reflexes Overall: deep tendon reflexes intact 03/19/2016 None Full Exam - General 1994 Neurologic cranial nerves Overall: crainial nerves 2 - 12 grossly intact 03/19/2016 None Full Exam - General 1994 Psychiatric orientation/consciousness Overall: oriented to person, place and time 03/19/2016 None Full Exam - General 1994 Psychiatric mood and affect Overall: normal mood and affect 03/19/2016 None Full Exam - General 1994 Constitutional general appearance Development: well developed 11/14/2015 None Full Exam - General 1994 Constitutional general appearance Development: appears stated age 0911/14/2015 None Full Exam - General 1994 Constitutional general appearance Hygiene/Attention to Grooming: good hygiene 11/14/2015 None Full Exam - General 1994 Eyes conjunctiva /eyelids Overall: conjunctiva clear 11/14/2015 None Full Exam - General 1994 Eyes conjunctiva /eyelids Overall: cornea clear 11/14/2015 None Full Exam - General 1994 Eyes conjunctiva /eyelids Overall: eyelids normal 11/14/2015 None Full Exam - General 1994 Eyes pupils and irises Overall: pupils equal, round, reactive to light and accomodation 11/14/2015 None Full Exam - General 1994 Ears/Nose/Throat otoscopic exam Overall: external auditory canals clear 11/14/2015 None Full Exam - General 1994 Ears/Nose/Throat otoscopic exam Overall: tympanic membranes clear 11/14/2015 None Full Exam - General 1994 Ears/Nose/Throat lips/teeth/gingiva Overall: benign lips 11/14/2015 None Full Exam - General 1994 Ears/Nose/Throat lips/teeth/gingiva Overall: normal dentition 11/14/2015 None Full Exam - General 1994 Ears/Nose/Throat oral cavity/pharynx/larynx Overall: oral mucosa clear 11/14/2015 None Full Exam - General 1994 Ears/Nose/Throat oral cavity/pharynx/larynx Overall: oropharyngeal mucosa clear 11/14/2015 None Full Exam - General 1994 Ears/Nose/Throat oral cavity/pharynx/larynx Overall: hypopharynx benign 11/14/2015 None Full Exam - General 1994 Ears/Nose/Throat oral cavity/pharynx/larynx Overall: no masses 11/14/2015 None Full Exam - General 1994 Respiratory auscultation Overall: breath sounds clear bilaterally 11/14/2015 None Full Exam - General 1994 Respiratory respiratory effort/rhythm Overall: no retractions 11/14/2015 None Full Exam - General 1994 Respiratory respiratory effort/rhythm Overall: normal rate 11/14/2015 None Full Exam - General 1994 Cardiovascular extremities Overall: no clubbing 11/14/2015 None Full Exam - General 1994 Cardiovascular auscultation of heart Overall: regular rate 11/14/2015 None Full Exam - General 1994 Cardiovascular auscultation of heart Overall: normal heart sounds 11/14/2015 None Full Exam - General 1994 Abdomen abdominal exam Overall: no tenderness 11/14/2015 None Full Exam - General 1994 Abdomen abdominal exam Overall: normal bowel sounds 11/14/2015 None Full Exam - General 1994 Lymphatic neck nodes Overall: anterior cervical chain benign 11/14/2015 None Full Exam - General 1994 Lymphatic neck nodes Overall: posterior cervical chain benign 11/14/2015 None Full Exam - General 1994 Musculoskeletal spine, ribs and pelvis Posture: kyphosis 11/14/2015 None Full Exam - General 1994 Musculoskeletal head and neck Overall: head atraumatic 11/14/2015 None Full Exam - General 1994 Musculoskeletal head and neck Overall: cervical spine benign 11/14/2015 None Full Exam - General 1994 Integument inspection of skin Overall: few scattered moles, no gross abnormalities 11/14/2015 None Full Exam - General 1994 Neurologic deep tendon reflexes Overall: deep tendon reflexes intact 11/14/2015 None Full Exam - General 1994 Neurologic cranial nerves Overall: crainial nerves 2 - 12 grossly intact 11/14/2015 None Full Exam - General 1994 Psychiatric orientation/consciousness Overall: oriented to person, place and time 11/14/2015 None Full Exam - General 1994 Psychiatric mood and affect Overall: normal mood and affect 11/14/2015 None Full Exam - General 1994 Constitutional general appearance Development: well developed 08/14/2015 None Full Exam - General 1994 Constitutional general appearance Development: appears stated age 0608/14/2015 None Full Exam - General 1994 Constitutional general appearance Hygiene/Attention to Grooming: good hygiene 08/14/2015 None Full Exam - General 1994 Eyes conjunctiva /eyelids Overall: conjunctiva clear 08/14/2015 None Full Exam - General 1994 Eyes conjunctiva /eyelids Overall: cornea clear 08/14/2015 None Full Exam - General 1994 Eyes conjunctiva /eyelids Overall: eyelids normal 08/14/2015 None Full Exam - General 1994 Eyes pupils and irises Overall: pupils equal, round, reactive to light and accomodation 08/14/2015 None Full Exam - General 1994 Ears/Nose/Throat otoscopic exam Overall: external auditory canals clear 08/14/2015 None Full Exam - General 1994 Ears/Nose/Throat otoscopic exam Overall: tympanic membranes clear 08/14/2015 None Full Exam - General 1994 Ears/Nose/Throat lips/teeth/gingiva Overall: benign lips 08/14/2015 None Full Exam - General 1994 Ears/Nose/Throat lips/teeth/gingiva Overall: normal dentition 08/14/2015 None Full Exam - General 1994 Ears/Nose/Throat oral cavity/pharynx/larynx Overall: oral mucosa clear 08/14/2015 None Full Exam - General 1994 Ears/Nose/Throat oral cavity/pharynx/larynx Overall: oropharyngeal mucosa clear 08/14/2015 None Full Exam - General 1994 Ears/Nose/Throat oral cavity/pharynx/larynx Overall: hypopharynx benign 08/14/2015 None Full Exam - General 1994 Ears/Nose/Throat oral cavity/pharynx/larynx Overall: no masses 08/14/2015 None Full Exam - General 1994 Respiratory auscultation Overall: breath sounds clear bilaterally 08/14/2015 None Full Exam - General 1994 Respiratory respiratory effort/rhythm Overall: no retractions 08/14/2015 None Full Exam - General 1994 Respiratory respiratory effort/rhythm Overall: normal rate 08/14/2015 None Full Exam - General 1994 Cardiovascular extremities Overall: no clubbing 08/14/2015 None Full Exam - General 1994 Cardiovascular auscultation of heart Overall: regular rate 08/14/2015 None Full Exam - General 1994 Cardiovascular auscultation of heart Overall: normal heart sounds 08/14/2015 None Full Exam - General 1994 Abdomen abdominal exam Overall: no tenderness 08/14/2015 None Full Exam - General 1994 Abdomen abdominal exam Overall: normal bowel sounds 08/14/2015 None Full Exam - General 1994 Lymphatic neck nodes Overall: anterior cervical chain benign 08/14/2015 None Full Exam - General 1994 Lymphatic neck nodes Overall: posterior cervical chain benign 08/14/2015 None Full Exam - General 1994 Musculoskeletal spine, ribs and pelvis Posture: kyphosis 08/14/2015 None Full Exam - General 1994 Musculoskeletal head and neck Overall: head atraumatic 08/14/2015 None Full Exam - General 1994 Musculoskeletal head and neck Overall: cervical spine benign 08/14/2015 None Full Exam - General 1994 Integument inspection of skin Overall: few scattered moles, no gross abnormalities 08/14/2015 None Full Exam - General 1994 Neurologic deep tendon reflexes Overall: deep tendon reflexes intact 08/14/2015 None Full Exam - General 1994 Neurologic cranial nerves Overall: crainial nerves 2 - 12 grossly intact 08/14/2015 None Full Exam - General 1994 Psychiatric orientation/consciousness Overall: oriented to person, place and time 08/14/2015 None Full Exam - General 1994 Psychiatric mood and affect Overall: normal mood and affect 08/14/2015 None Full Exam - General 1994 Constitutional general appearance Development: well developed 07/17/2015 None Full Exam - General 1994 Constitutional general appearance Development: appears stated age 0507/17/2015 None Full Exam - General 1994 Constitutional general appearance Hygiene/Attention to Grooming: good hygiene 07/17/2015 None Full Exam - General 1994 Eyes conjunctiva /eyelids Overall: conjunctiva clear 07/17/2015 None Full Exam - General 1994 Eyes conjunctiva /eyelids Overall: cornea clear 07/17/2015 None Full Exam - General 1994 Eyes conjunctiva /eyelids Overall: eyelids normal 07/17/2015 None Full Exam - General 1994 Eyes pupils and irises Overall: pupils equal, round, reactive to light and accomodation 07/17/2015 None Full Exam - General 1994 Ears/Nose/Throat otoscopic exam Overall: external auditory canals clear 07/17/2015 None Full Exam - General 1994 Ears/Nose/Throat otoscopic exam Overall: tympanic membranes clear 07/17/2015 None Full Exam - General 1994 Ears/Nose/Throat lips/teeth/gingiva Overall: benign lips 07/17/2015 None Full Exam - General 1994 Ears/Nose/Throat lips/teeth/gingiva Overall: normal dentition 07/17/2015 None Full Exam - General 1994 Ears/Nose/Throat oral cavity/pharynx/larynx Overall: oral mucosa clear 07/17/2015 None Full Exam - General 1994 Ears/Nose/Throat oral cavity/pharynx/larynx Overall: oropharyngeal mucosa clear 07/17/2015 None Full Exam - General 1994 Ears/Nose/Throat oral cavity/pharynx/larynx Overall: hypopharynx benign 07/17/2015 None Full Exam - General 1994 Ears/Nose/Throat oral cavity/pharynx/larynx Overall: no masses 07/17/2015 None Full Exam - General 1994 Respiratory auscultation Overall: breath sounds clear bilaterally 07/17/2015 None Full Exam - General 1994 Respiratory respiratory effort/rhythm Overall: no retractions 07/17/2015 None Full Exam - General 1994 Respiratory respiratory effort/rhythm Overall: normal rate 07/17/2015 None Full Exam - General 1994 Cardiovascular extremities Overall: no clubbing 07/17/2015 None Full Exam - General 1994 Cardiovascular auscultation of heart Overall: regular rate 07/17/2015 None Full Exam - General 1994 Cardiovascular auscultation of heart Overall: normal heart sounds 07/17/2015 None Full Exam - General 1994 Abdomen abdominal exam Overall: no tenderness 07/17/2015 None Full Exam - General 1994 Abdomen abdominal exam Overall: normal bowel sounds 07/17/2015 None Full Exam - General 1994 Lymphatic neck nodes Overall: anterior cervical chain benign 07/17/2015 None Full Exam - General 1994 Lymphatic neck nodes Overall: posterior cervical chain benign 07/17/2015 None Full Exam - General 1994 Musculoskeletal spine, ribs and pelvis Posture: kyphosis 07/17/2015 None Full Exam - General 1994 Musculoskeletal head and neck Overall: head atraumatic 07/17/2015 None Full Exam - General 1994 Musculoskeletal head and neck Overall: cervical spine benign 07/17/2015 None Full Exam - General 1994 Integument inspection of skin Overall: few scattered moles, no gross abnormalities 07/17/2015 None Full Exam - General 1994 Neurologic deep tendon reflexes Overall: deep tendon reflexes intact 07/17/2015 None Full Exam - General 1994 Neurologic cranial nerves Overall: crainial nerves 2 - 12 grossly intact 07/17/2015 None Full Exam - General 1994 Psychiatric orientation/consciousness Overall: oriented to person, place and time 07/17/2015 None Full Exam - General 1994 Psychiatric mood and affect Overall: normal mood and affect 07/17/2015 None Full Exam - General 1994 Constitutional general appearance Development: well developed 03/25/2015 None Full Exam - General 1994 Constitutional general appearance Development: appears stated age 0103/25/2015 None Full Exam - General 1994 Constitutional general appearance Hygiene/Attention to Grooming: good hygiene 03/25/2015 None Full Exam - General 1994 Eyes conjunctiva /eyelids Overall: conjunctiva clear 03/25/2015 None Full Exam - General 1994 Eyes conjunctiva /eyelids Overall: cornea clear 03/25/2015 None Full Exam - General 1994 Eyes conjunctiva /eyelids Overall: eyelids normal 03/25/2015 None Full Exam - General 1994 Eyes pupils and irises Overall: pupils equal, round, reactive to light and accomodation 03/25/2015 None Full Exam - General 1994 Ears/Nose/Throat otoscopic exam Overall: external auditory canals clear 03/25/2015 None Full Exam - General 1994 Ears/Nose/Throat otoscopic exam Overall: tympanic membranes clear 03/25/2015 None Full Exam - General 1994 Ears/Nose/Throat lips/teeth/gingiva Overall: benign lips 03/25/2015 None Full Exam - General 1994 Ears/Nose/Throat lips/teeth/gingiva Overall: normal dentition 03/25/2015 None Full Exam - General 1994 Ears/Nose/Throat oral cavity/pharynx/larynx Overall: oral mucosa clear 03/25/2015 None Full Exam - General 1994 Ears/Nose/Throat oral cavity/pharynx/larynx Overall: oropharyngeal mucosa clear 03/25/2015 None Full Exam - General 1994 Ears/Nose/Throat oral cavity/pharynx/larynx Overall: no masses 03/25/2015 None Full Exam - General 1994 Respiratory auscultation Overall: breath sounds clear bilaterally 03/25/2015 None Full Exam - General 1994 Respiratory respiratory effort/rhythm Overall: no retractions 03/25/2015 None Full Exam - General 1994 Respiratory respiratory effort/rhythm Overall: normal rate 03/25/2015 None Full Exam - General 1994 Cardiovascular extremities Overall: no clubbing 03/25/2015 None Full Exam - General 1994 Cardiovascular auscultation of heart Overall: regular rate 03/25/2015 None Full Exam - General 1994 Cardiovascular auscultation of heart Overall: normal heart sounds 03/25/2015 None Full Exam - General 1994 Abdomen abdominal exam Overall: no tenderness 03/25/2015 None Full Exam - General 1994 Abdomen abdominal exam Overall: normal bowel sounds 03/25/2015 None Full Exam - General 1994 Lymphatic neck nodes Overall: anterior cervical chain benign 03/25/2015 None Full Exam - General 1994 Lymphatic neck nodes Overall: posterior cervical chain benign 03/25/2015 None Full Exam - General 1994 Musculoskeletal spine, ribs and pelvis Posture: kyphosis 03/25/2015 None Full Exam - General 1994 Musculoskeletal head and neck Overall: head atraumatic 03/25/2015 None Full Exam - General 1994 Musculoskeletal head and neck Overall: cervical spine benign 03/25/2015 None Full Exam - General 1994 Integument inspection of skin Overall: few scattered moles, no gross abnormalities 03/25/2015 None Full Exam - General 1994 Neurologic cranial nerves Overall: crainial nerves 2 - 12 grossly intact 03/25/2015 None Full Exam - General 1994 Psychiatric orientation/consciousness Overall: oriented to person, place and time 03/25/2015 None Full Exam - General 1994 Psychiatric mood and affect Overall: normal mood and affect 03/25/2015 None Full Exam - General 1994 Constitutional general appearance Development: well developed 12/04/2014 None Full Exam - General 1994 Constitutional general appearance Development: appears stated age 0912/04/2014 None Full Exam - General 1994 Constitutional general appearance Hygiene/Attention to Grooming: good hygiene 12/04/2014 None Full Exam - General 1994 Eyes conjunctiva /eyelids Overall: conjunctiva clear 12/04/2014 None Full Exam - General 1994 Eyes conjunctiva /eyelids Overall: cornea clear 12/04/2014 None Full Exam - General 1994 Eyes conjunctiva /eyelids Overall: eyelids normal 12/04/2014 None Full Exam - General 1994 Eyes pupils and irises Overall: pupils equal, round, reactive to light and accomodation 12/04/2014 None Full Exam - General 1994 Ears/Nose/Throat otoscopic exam Overall: external auditory canals clear 12/04/2014 None Full Exam - General 1994 Ears/Nose/Throat otoscopic exam Overall: tympanic membranes clear 12/04/2014 None Full Exam - General 1994 Ears/Nose/Throat lips/teeth/gingiva Overall: benign lips 12/04/2014 None Full Exam - General 1994 Ears/Nose/Throat lips/teeth/gingiva Overall: normal dentition 12/04/2014 None Full Exam - General 1994 Ears/Nose/Throat oral cavity/pharynx/larynx Overall: oral mucosa clear 12/04/2014 None Full Exam - General 1994 Ears/Nose/Throat oral cavity/pharynx/larynx Overall: oropharyngeal mucosa clear 12/04/2014 None Full Exam - General 1994 Ears/Nose/Throat oral cavity/pharynx/larynx Overall: hypopharynx benign 12/04/2014 None Full Exam - General 1994 Ears/Nose/Throat oral cavity/pharynx/larynx Overall: no masses 12/04/2014 None Full Exam - General 1994 Respiratory auscultation Overall: breath sounds clear bilaterally 12/04/2014 None Full Exam - General 1994 Respiratory respiratory effort/rhythm Overall: no retractions 12/04/2014 None Full Exam - General 1994 Respiratory respiratory effort/rhythm Overall: normal rate 12/04/2014 None Full Exam - General 1994 Cardiovascular extremities Overall: no clubbing 12/04/2014 None Full Exam - General 1994 Cardiovascular auscultation of heart Overall: regular rate 12/04/2014 None Full Exam - General 1994 Cardiovascular auscultation of heart Overall: normal heart sounds 12/04/2014 None Full Exam - General 1994 Abdomen abdominal exam Overall: no tenderness 12/04/2014 None Full Exam - General 1994 Abdomen abdominal exam Overall: normal bowel sounds 12/04/2014 None Full Exam - General 1994 Lymphatic neck nodes Overall: anterior cervical chain benign 12/04/2014 None Full Exam - General 1994 Lymphatic neck nodes Overall: posterior cervical chain benign 12/04/2014 None Full Exam - General 1994 Musculoskeletal spine, ribs and pelvis Posture: kyphosis 12/04/2014 None Full Exam - General 1994 Musculoskeletal head and neck Overall: head atraumatic 12/04/2014 None Full Exam - General 1994 Musculoskeletal head and neck Overall: cervical spine benign 12/04/2014 None Full Exam - General 1994 Integument inspection of skin Overall: few scattered moles, no gross abnormalities 12/04/2014 None Full Exam - General 1994 Neurologic deep tendon reflexes Overall: deep tendon reflexes intact 12/04/2014 None Full Exam - General 1994 Neurologic cranial nerves Overall: crainial nerves 2 - 12 grossly intact 12/04/2014 None Full Exam - General 1994 Psychiatric orientation/consciousness Overall: oriented to person, place and time 12/04/2014 None Full Exam - General 1994 Psychiatric mood and affect Overall: normal mood and affect 12/04/2014 None Full Exam - General 1994 Constitutional general appearance Development: appears stated age 0608/14/2014 None Full Exam - General 1994 Constitutional general appearance Development: well developed 08/14/2014 None Full Exam - General 1994 Constitutional general appearance Hygiene/Attention to Grooming: good hygiene 08/14/2014 None Full Exam - General 1994 Eyes conjunctiva /eyelids Overall: conjunctiva clear 08/14/2014 None Full Exam - General 1994 Eyes conjunctiva /eyelids Overall: cornea clear 08/14/2014 None Full Exam - General 1994 Eyes conjunctiva /eyelids Overall: eyelids normal 08/14/2014 None Full Exam - General 1994 Eyes pupils and irises Overall: pupils equal, round, reactive to light and accomodation 08/14/2014 None Full Exam - General 1994 Ears/Nose/Throat otoscopic exam Overall: external auditory canals clear 08/14/2014 None Full Exam - General 1994 Ears/Nose/Throat otoscopic exam Overall: tympanic membranes clear 08/14/2014 None Full Exam - General 1994 Ears/Nose/Throat lips/teeth/gingiva Overall: benign lips 08/14/2014 None Full Exam - General 1994 Ears/Nose/Throat lips/teeth/gingiva Overall: normal dentition 08/14/2014 None Full Exam - General 1994 Ears/Nose/Throat oral cavity/pharynx/larynx Overall: hypopharynx benign 08/14/2014 None Full Exam - General 1994 Ears/Nose/Throat oral cavity/pharynx/larynx Overall: no masses 08/14/2014 None Full Exam - General 1994 Ears/Nose/Throat oral cavity/pharynx/larynx Overall: oral mucosa clear 08/14/2014 None Full Exam - General 1994 Ears/Nose/Throat oral cavity/pharynx/larynx Overall: oropharyngeal mucosa clear 08/14/2014 None Full Exam - General 1994 Respiratory auscultation Overall: breath sounds clear bilaterally 08/14/2014 None Full Exam - General 1994 Respiratory respiratory effort/rhythm Overall: no retractions 08/14/2014 None Full Exam - General 1994 Respiratory respiratory effort/rhythm Overall: normal rate 08/14/2014 None Full Exam - General 1994 Cardiovascular extremities Overall: no clubbing 08/14/2014 None Full Exam - General 1994 Cardiovascular auscultation of heart Overall: normal heart sounds 08/14/2014 None Full Exam - General 1994 Cardiovascular auscultation of heart Overall: regular rate 08/14/2014 None Full Exam - General 1994 Abdomen abdominal exam Overall: no tenderness 08/14/2014 None Full Exam - General 1994 Abdomen abdominal exam Overall: normal bowel sounds 08/14/2014 None Full Exam - General 1994 Integument inspection of skin Overall: few scattered moles, no gross abnormalities 08/14/2014 None Full Exam - General 1994 Neurologic deep tendon reflexes Overall: deep tendon reflexes intact 08/14/2014 None Full Exam - General 1994 Neurologic cranial nerves Overall: crainial nerves 2 - 12 grossly intact 08/14/2014 None Full Exam - General 1994 Psychiatric orientation/consciousness Overall: oriented to person, place and time 08/14/2014 None Full Exam - General 1994 Psychiatric mood and affect Overall: normal mood and affect 08/14/2014 None Full Exam - General 1994 Lymphatic neck nodes Overall: anterior cervical chain benign 08/14/2014 None Full Exam - General 1994 Lymphatic neck nodes Overall: posterior cervical chain benign 08/14/2014 None Full Exam - General 1994 Musculoskeletal head and neck Overall: cervical spine benign 08/14/2014 None Full Exam - General 1994 Musculoskeletal head and neck Overall: head atraumatic 08/14/2014 None Full Exam - General 1994 Musculoskeletal spine, ribs and pelvis Posture: kyphosis 08/14/2014 None Procedures Procedure Codes Date GLUC MONITOR CONT PHYS I&R CPT-4: 32047 10/26/2017 GLUCOSE MONITORING CONT CPT-4: 16616 10/11/2017 URINALYSIS NONAUTO W/O SCOPE CPT-4: 96949 04/15/2017 FLU VAC NO PRSV 4 ANABELLE 3 YRS+ CPT-4: 86371 12/17/2016 ADMIN INFLUENZA VIRUS VAC CPT-4: G0008 12/17/2016 FLU VACC PRSV FREE INC ANTIG Formatting Model/CDA Sections, Assigned to/JeremiahMelitona CPT-4: 61195Tdzyufn 11/14/2015 ADMIN INFLUENZA VIRUS VAC CPT-4: G0008 11/14/2015 ADMIN INFLUENZA VIRUS VAC Formatting Model/CDA Sections, Assigned to/Jeremiah Nery CPT-4: [id number] 12/04/2014 FLU VACC 4 ANABELLE 3 YRS PLUS IM SNOMED CT: 77071304 CPT-4: 05056 12/04/2014 Vital Signs Date Vital 10/26/2017 Blood Pressure 1: 156/74 Code : 8480-6 BMI: 31.2 Code : 93517-3 Heart Rate 1 : 71 bpm Height: 5' SpO2: 98% Weight: 160 lbs 10/11/2017 Blood Pressure 1: 128/70 Code : 8480-6 BMI: 30.9 Code : 70882-4 Heart Rate 1 : 70 bpm Height: 5' SpO2: 95% Weight: 158 lbs 09/22/2017 Blood Pressure 1: 110/52 Code : 8480-6 BMI: 30.9 Code : 38458-0 Heart Rate 1 : 72 bpm Height: 5' SpO2: 99% Weight: 158 lbs 07/06/2017 Blood Pressure 1: 120/85 Code : 8480-6 BMI: 31.4 Code : 10964-8 Heart Rate 1 : 74 bpm Height: 5' SpO2: 92% Weight: 161 lbs 06/03/2017 Blood Pressure 1: 120/62 Code : 8480-6 BMI: 31.1 Code : 81594-3 Heart Rate 1 : 73 bpm Height: 5' SpO2: 99% Weight: 159 lbs 05/12/2017 Blood Pressure 1: 132/68 Code : 8480-6 BMI: 32.4 Code : 57866-1 Heart Rate 1 : 95 bpm Height: 5' SpO2: 97% Weight: 166 lbs 04/15/2017 Blood Pressure 1: 128/84 Code : 8480-6 BMI: 32.4 Code : 89209-6 Heart Rate 1 : 62 bpm Height: 5' SpO2: 97% Weight: 166 lbs 03/19/2017 Blood Pressure 1: 112/60 Code : 8480-6 BMI: 32.0 Code : 81716-6 Height: 5' Weight: 164 lbs 02/03/2017 Blood Pressure 1: 128/76 Code : 8480-6 BMI: 33.4 Code : 55971-1 Heart Rate 1 : 91 bpm Height: 5' SpO2: 99% Weight: 171 lbs 01/07/2017 Blood Pressure 1: 126/74 Code : 8480-6 BMI: 34.2 Code : 87218-7 Heart Rate 1 : 83 bpm Height: 5' SpO2: 97% Weight: 175 lbs 12/17/2016 Blood Pressure 1: 122/72 Code : 8480-6 BMI: 34.0 Code : 29845-5 Heart Rate 1 : 78 bpm Height: 5' SpO2: 97% Weight: 174 lbs 09/14/2016 Blood Pressure 1: 128/86 Code : 8480-6 BMI: 33.8 Code : 15785-4 Heart Rate 1 : 88 bpm Height: 5' SpO2: 96% Weight: 173 lbs 06/18/2016 Blood Pressure 1: 122/74 Code : 8480-6 BMI: 34.8 Code : 25854-5 Heart Rate 1 : 78 bpm Height: 5' SpO2: 98% Weight: 178 lbs 04/16/2016 Blood Pressure 1: 134/68 Code : 8480-6 BMI: 35.0 Code : 55916-5 Heart Rate 1 : 67 bpm Height: 5' SpO2: 97% Weight: 179 lbs 03/19/2016 Blood Pressure 1: 132/74 Code : 8480-6 BMI: 34.6 Code : 70852-4 Heart Rate 1 : 74 bpm Height: 5' SpO2: 97% Weight: 177 lbs 11/14/2015 Blood Pressure 1: 132/70 Code : 8480-6 BMI: 35.2 Code : 96805-8 Heart Rate 1 : 68 bpm Height: 5' Weight: 180 lbs 08/14/2015 Blood Pressure 1: 122/74 Code : 8480-6 BMI: 33.8 Code : 41581-1 Heart Rate 1 : 73 bpm Height: 5' SpO2: 93% Weight: 173 lbs 07/17/2015 Blood Pressure 1: 138/78 Code : 8480-6 BMI: 34.0 Code : 75001-0 Heart Rate 1 : 85 bpm Height: 5' SpO2: 97% Weight: 174 lbs 03/25/2015 Blood Pressure 1: 130/78 Code : 8480-6 BMI: 33.2 Code : 78733-6 Heart Rate 1 : 77 bpm Height: 5' SpO2: 97% Weight: 170 lbs 12/04/2014 Blood Pressure 1: 120/74 Code : 8480-6 BMI: 35.4 Code : 64859-3 Heart Rate 1 : 67 bpm Height: 5' SpO2: 94% Weight: 181 lbs 5 oz 08/14/2014 Blood Pressure 1: 132/68 Code : 8480-6 BMI: 32.1 Code : 24434-6 Heart Rate 1 : 62 bpm Height: 5'3" SpO2: 97% Weight: 184 lbs Functional Status No Functional Status data History of Present Illness Symptom Name Status Result Effective Date Notes diabetes mellitus Quality insulin dependent 10/26/2017 None diabetes mellitus Quality chronic 10/26/2017 None diabetes mellitus Alleviating Factors medication 10/26/2017 None diabetes mellitus Alleviating Factors insulin 10/26/2017 None diabetes mellitus Exacerbating Factors diet 10/26/2017 None diabetes mellitus Onset of Symptom onset as an adult 10/26/2017 None diabetes mellitus Test results Pt checking blood glucose readings, did not bring results to clinic 10/26/2017 None diabetes mellitus Glucose monitoring daily 10/26/2017 ---172 this morning diabetes mellitus Onset of Symptom onset as an adult 10/11/2017 None diabetes mellitus Quality insulin dependent 10/11/2017 None diabetes mellitus Quality chronic 10/11/2017 None diabetes mellitus Alleviating Factors medication 10/11/2017 None diabetes mellitus Alleviating Factors insulin 10/11/2017 None diabetes mellitus Exacerbating Factors diet 10/11/2017 None diabetes mellitus Pertinent Findings Denies dizziness 10/11/2017 None diabetes mellitus Pertinent Findings Denies dyspnea 10/11/2017 None diabetes mellitus Pertinent Findings Denies nausea 10/11/2017 None diabetes mellitus Onset of Symptom onset as an adult 09/22/2017 None diabetes mellitus Alleviating Factors medication 09/22/2017 None diabetes mellitus Exacerbating Factors diet 09/22/2017 None diabetes mellitus Pertinent Findings Denies dizziness 09/22/2017 None diabetes mellitus Pertinent Findings Denies dyspnea 09/22/2017 None diabetes mellitus Pertinent Findings Denies nausea 09/22/2017 None hypertension Quality primary hypertension 09/22/2017 None hypertension Onset and Resolution ongoing 09/22/2017 None hypertension Onset of Symptom during adulthood 09/22/2017 None hypertension Blood Pressure Values not checking blood pressure at home 09/22/2017 None hypertension Alleviating Factors medication 09/22/2017 None hypertension Pertinent Findings Denies dizziness 09/22/2017 None hypertension Pertinent Findings Denies dyspnea 09/22/2017 None hypertension Pertinent Findings Denies edema 09/22/2017 None diabetes mellitus Quality chronic 09/22/2017 None hypertension Quality chronic 09/22/2017 None diabetes mellitus Test results Pt checking blood glucose at home, see scanned readings 2017 None diabetes mellitus Glucose monitoring fasting 09/22/2017 None hypertension Quality stable 09/22/2017 None depression Onset and Resolution ongoing 09/22/2017 None depression Triggers recent of family member 09/22/2017 None depression Triggers stress 09/22/2017 None depression Pertinent Findings depressed mood 09/22/2017 None diabetes mellitus Quality insulin dependent 09/22/2017 None diabetes mellitus Alleviating Factors insulin 09/22/2017 None Hospital Follow Up _ Other: afib with RVR , chest pain, pulmonary edema 07/06/2017 None Hospital Follow Up Quality acute 07/06/2017 None Hospital Follow Up Quality improving 07/06/2017 None Hospital Follow Up Onset and Resolution ongoing 07/06/2017 None Hospital Follow Up Severity mild 07/06/2017 None Hospital Follow Up Significant Medical Conditions afib 07/06/2017 None Hospital Follow Up Alleviating Factors medication 07/06/2017 None Hospital Follow Up _ Other: afib with RVR , chest pain, pulmonary edema 06/03/2017 None Hospital Follow Up Quality acute 06/03/2017 None Hospital Follow Up Quality improving 06/03/2017 None Hospital Follow Up Alleviating Factors medication 06/03/2017 None Hospital Follow Up Onset and Resolution ongoing 06/03/2017 None Hospital Follow Up Significant Medical Conditions afib 06/03/2017 None Hospital Follow Up Severity mild 06/03/2017 None arrhythmia Quality tachycardia 05/12/2017 None arrhythmia Onset and Resolution sudden in onset 05/12/2017 None arrhythmia Onset and Resolution resolved 05/12/2017 None arrhythmia Pertinent Findings Denies fever 05/12/2017 None arrhythmia Pertinent Findings Denies chills 05/12/2017 None arrhythmia Pertinent Findings Denies syncope 05/12/2017 None Hospital Follow Up _ infection 04/15/2017 None Hospital Follow Up _ cardiac disease 04/15/2017 None Hospital Follow Up _ Other: shortness of breath 04/15/2017 None Hospital Follow Up Quality acute illness 04/15/2017 None Hospital Follow Up Pertinent Findings Other: shortness of breath 04/15/2017 None diabetes mellitus Onset of Symptom onset as an adult 04/15/2017 None diabetes mellitus Quality non-insulin dependent 04/15/2017 None diabetes mellitus Alleviating Factors medication 04/15/2017 None diabetes mellitus Exacerbating Factors diet 04/15/2017 None diabetes mellitus Pertinent Findings dizziness 04/15/2017 None diabetes mellitus Pertinent Findings dyspnea 04/15/2017 None diabetes mellitus Pertinent Findings nausea 04/15/2017 --improving hypertension Quality primary hypertension 04/15/2017 None hypertension Onset and Resolution ongoing 04/15/2017 None hypertension Onset of Symptom during adulthood 04/15/2017 None hypertension Blood Pressure Values not checking blood pressure at home 04/15/2017 None hypertension Alleviating Factors medication 04/15/2017 None hypertension Pertinent Findings Denies dizziness 04/15/2017 ---Has blurred vision intermittently- using eye drops hypertension Pertinent Findings dyspnea 04/15/2017 occasionally with exertion hypertension Pertinent Findings Denies edema 04/15/2017 None dysuria Quality acute 04/15/2017 None dysuria Onset and Resolution sudden in onset 04/15/2017 None dysuria Onset of Symptom 5 days ago 04/15/2017 None dysuria Pertinent Findings Denies back pain 04/15/2017 None dysuria Pertinent Findings Denies bladder pain 04/15/2017 None dysuria Pertinent Findings Denies chills 04/15/2017 None dysuria Pertinent Findings cough 04/15/2017 None dysuria Pertinent Findings Denies fever 04/15/2017 None dysuria Pertinent Findings nocturia 04/15/2017 None dysuria Pertinent Findings Denies nausea 04/15/2017 None dysuria Pertinent Findings polyuria 04/15/2017 None dysuria Pertinent Findings urinary urgency 04/15/2017 None cough Location in the throat 04/15/2017 None cough Quality intermittent 04/15/2017 None cough Onset and Resolution ongoing 04/15/2017 None cough Pertinent Findings Denies chest discomfort 04/15/2017 None cough Pertinent Findings Denies dyspnea 04/15/2017 None cough Pertinent Findings Denies fever 04/15/2017 None Hospital Follow Up _ infection 03/19/2017 None Hospital Follow Up _ cardiac disease 03/19/2017 None Hospital Follow Up _ Other: shortness of breath 03/19/2017 None Hospital Follow Up Quality acute illness 03/19/2017 None Hospital Follow Up Pertinent Findings Other: shortness of breath 03/19/2017 None diabetes mellitus Onset of Symptom onset as an adult 02/03/2017 None diabetes mellitus Quality non-insulin dependent 02/03/2017 None diabetes mellitus Alleviating Factors medication 02/03/2017 None diabetes mellitus Exacerbating Factors diet 02/03/2017 None diabetes mellitus Pertinent Findings nausea 02/03/2017 --improving diabetes mellitus Test results Pt checking blood glucose at home, see scanned readings 2016 None diabetes mellitus Glucose monitoring fasting 02/03/2017 None diabetes mellitus Pertinent Findings dizziness 02/03/2017 None diabetes mellitus Pertinent Findings dyspnea 02/03/2017 None headache Quality intermittent 01/07/2017 None headache Location in the right occipital area 01/07/2017 None headache Location in the left occipital area 01/07/2017 None headache Onset and Resolution sudden in onset 01/07/2017 None headache Quality aching 01/07/2017 None headache Quality acute 01/07/2017 None headache Onset of Symptom 2 weeks ago 01/07/2017 None headache Frequency of Episodes daily 01/07/2017 None headache Triggers no known associated factors 01/07/2017 None headache Pertinent Findings blurred vision 01/07/2017 --intermittent- both eyes headache Pertinent Findings nausea 01/07/2017 --intermittent headache Pertinent Findings Denies fever 01/07/2017 None headache Pertinent Findings Denies vomiting 01/07/2017 None headache Pertinent Findings dyspnea 01/07/2017 with a rapid heart rate chest tightness Quality acute 01/07/2017 None chest tightness Quality intermittent 01/07/2017 None chest tightness Pertinent Findings palpitations 01/07/2017 None chest tightness Triggers exertion 01/07/2017 None chest tightness Onset and Resolution sudden in onset 01/07/2017 None chest tightness Onset of Symptom 2 weeks ago 01/07/2017 None chest tightness Frequency of Episodes daily 01/07/2017 None diabetes mellitus Onset of Symptom onset as an adult 12/17/2016 None diabetes mellitus Quality non-insulin dependent 12/17/2016 None diabetes mellitus Alleviating Factors medication 12/17/2016 None diabetes mellitus Exacerbating Factors diet 12/17/2016 None diabetes mellitus Pertinent Findings Denies nausea 12/17/2016 None hypertension Onset and Resolution ongoing 12/17/2016 None hypertension Onset of Symptom during adulthood 12/17/2016 None hypertension Blood Pressure Values not checking blood pressure at home 12/17/2016 None hypertension Alleviating Factors medication 12/17/2016 None hypertension Pertinent Findings Denies dizziness 12/17/2016 ---Has blurred vision intermittently- using eye drops hypertension Pertinent Findings dyspnea 12/17/2016 occasionally with exertion hypertension Pertinent Findings Denies edema 12/17/2016 None hypertension Quality primary hypertension 12/17/2016 None diabetes mellitus Test results Pt checking blood glucose at home, see scanned readings 2016 None diabetes mellitus Glucose monitoring fasting 12/17/2016 None diabetes mellitus Glucose monitoring daily 12/17/2016 None constipation Quality intermittent 12/17/2016 None constipation Onset and Resolution ongoing 12/17/2016 None constipation Alleviating Factors laxatives 12/17/2016 None constipation Exacerbating Factors medication 12/17/2016 None diabetes mellitus Onset of Symptom onset as an adult 09/14/2016 None diabetes mellitus Quality non-insulin dependent 09/14/2016 None diabetes mellitus Alleviating Factors medication 09/14/2016 None diabetes mellitus Exacerbating Factors diet 09/14/2016 None diabetes mellitus Pertinent Findings Denies nausea 09/14/2016 None hypertension Onset and Resolution ongoing 09/14/2016 None hypertension Onset of Symptom during adulthood 09/14/2016 None hypertension Blood Pressure Values not checking blood pressure at home 09/14/2016 None hypertension Alleviating Factors medication 09/14/2016 None hypertension Pertinent Findings Denies dizziness 09/14/2016 None hypertension Pertinent Findings Denies dyspnea 09/14/2016 None hypertension Pertinent Findings Denies edema 09/14/2016 None diabetes mellitus Onset of Symptom onset as an adult 06/18/2016 None diabetes mellitus Quality non-insulin dependent 06/18/2016 None diabetes mellitus Alleviating Factors medication 06/18/2016 None diabetes mellitus Exacerbating Factors diet 06/18/2016 None diabetes mellitus Pertinent Findings Denies nausea 06/18/2016 None hypertension Onset and Resolution ongoing 06/18/2016 None hypertension Onset of Symptom during adulthood 06/18/2016 None hypertension Blood Pressure Values not checking blood pressure at home 06/18/2016 None hypertension Alleviating Factors medication 06/18/2016 None hypertension Pertinent Findings Denies edema 06/18/2016 None hypertension Pertinent Findings Denies dizziness 06/18/2016 None hypertension Pertinent Findings Denies dyspnea 06/18/2016 None diabetes mellitus Test results Pt checking blood glucose readings, did not bring results to clinic 06/18/2016 None diabetes mellitus Glucose monitoring daily 06/18/2016 None depression Onset and Resolution ongoing 06/18/2016 None depression Alleviating Factors medication 06/18/2016 None back pain Location lumbar-sacral spine 04/16/2016 None back pain Quality intermittent 04/16/2016 None back pain Onset and Resolution ongoing 04/16/2016 None back pain Alleviating Factors rest 04/16/2016 None back pain Exacerbating Factors exertion 04/16/2016 None diabetes mellitus Onset of Symptom onset as an adult 04/16/2016 None diabetes mellitus Quality non-insulin dependent 04/16/2016 None diabetes mellitus Alleviating Factors medication 04/16/2016 None diabetes mellitus Exacerbating Factors diet 04/16/2016 None diabetes mellitus Pertinent Findings Denies dizziness 04/16/2016 None diabetes mellitus Pertinent Findings dyspnea 04/16/2016 with exertion diabetes mellitus Pertinent Findings Denies nausea 04/16/2016 None hypertension Onset and Resolution ongoing 04/16/2016 None hypertension Onset of Symptom during adulthood 04/16/2016 None hypertension Blood Pressure Values not checking blood pressure at home 04/16/2016 None hypertension Alleviating Factors medication 04/16/2016 None hypertension Pertinent Findings Denies edema 04/16/2016 None medication follow up Location intravenous medication (_) 04/16/2016 None back pain Location lumbar-sacral spine 03/19/2016 None back pain Quality intermittent 03/19/2016 None back pain Onset and Resolution ongoing 03/19/2016 None back pain Alleviating Factors rest 03/19/2016 None diabetes mellitus Onset of Symptom onset as an adult 03/19/2016 None back pain Exacerbating Factors exertion 03/19/2016 None diabetes mellitus Test results Pt checking blood glucose readings, did not bring results to clinic 03/19/2016 None diabetes mellitus Glucose monitoring daily 03/19/2016 None diabetes mellitus Alleviating Factors medication 03/19/2016 None diabetes mellitus Quality non-insulin dependent 03/19/2016 None diabetes mellitus Exacerbating Factors diet 03/19/2016 None diabetes mellitus Pertinent Findings Denies dizziness 03/19/2016 None diabetes mellitus Pertinent Findings dyspnea 03/19/2016 with exertion diabetes mellitus Pertinent Findings Denies nausea 03/19/2016 None hypertension Onset and Resolution ongoing 03/19/2016 None hypertension Onset of Symptom during adulthood 03/19/2016 None hypertension Blood Pressure Values not checking blood pressure at home 03/19/2016 None hypertension Alleviating Factors medication 03/19/2016 None hypertension Pertinent Findings Denies edema 03/19/2016 None back pain Location lumbar-sacral spine 11/14/2015 None back pain Quality improving 11/14/2015 None back pain Quality intermittent 11/14/2015 None back pain Onset and Resolution ongoing 11/14/2015 None back pain Alleviating Factors rest 11/14/2015 None back pain Pertinent Findings Denies extremity weakness 11/14/2015 None back pain Pertinent Findings Denies osteoarthritis 11/14/2015 None back pain Pertinent Findings Denies weakness 11/14/2015 None diabetes mellitus Onset of Symptom onset as an adult 11/14/2015 None diabetes mellitus Test results Pt checking blood glucose at home, see scanned readings 2015 None diabetes mellitus Glucose monitoring daily 11/14/2015 None back pain Location lumbar-sacral spine 08/14/2015 None back pain Quality intermittent 08/14/2015 None back pain Quality improving 08/14/2015 None back pain Onset and Resolution ongoing 08/14/2015 None back pain Alleviating Factors rest 08/14/2015 None back pain Pertinent Findings Denies osteoarthritis 08/14/2015 None back pain Pertinent Findings Denies extremity weakness 08/14/2015 None back pain Pertinent Findings Denies weakness 08/14/2015 None diabetes mellitus Onset of Symptom onset as an adult 07/17/2015 None diabetes mellitus Test results Pt checking blood glucose at home, see scanned readings 2015 None diabetes mellitus Glucose monitoring daily 07/17/2015 None urinary urgency Quality constant 07/17/2015 None urinary urgency Onset and Resolution ongoing 07/17/2015 None diabetes mellitus Nutrition ADA diet 07/17/2015 None diabetes mellitus Exercise minimal exercise 07/17/2015 None Hospital Follow Up _ Other: 03/25/2015 None Hospital Follow Up Onset of Symptom 2 days ago 03/25/2015 None Hospital Follow Up Onset and Resolution sudden in onset 03/25/2015 None diabetes mellitus Onset of Symptom onset as an adult 12/04/2014 None blood pressure followup Quality chronic 12/04/2014 None blood pressure followup Onset and Resolution ongoing 12/04/2014 None blood pressure followup Onset of Symptom during childhood 12/04/2014 None blood pressure followup Blood Pressure Values not checking blood pressure at home 12/04/2014 None blood pressure followup Blood Pressure Values pt checking blood pressure - see scanned document 12/04 None blood pressure followup Frequency of Episodes unchanged 12/04/2014 None blood pressure followup Triggers stress 12/04/2014 None blood pressure followup Alleviating Factors diet changes 12/04/2014 None blood pressure followup Alleviating Factors exercise 12/04/2014 None blood pressure followup Alleviating Factors medication 12/04/2014 None diabetes mellitus Test results Pt checking blood glucose readings, did not bring results to clinic 12/04/2014 Fasting BG 152 this am diabetes mellitus Test results Pt checking blood glucose at home, see scanned readings 2014 None diabetes mellitus Glucose monitoring daily 08/14/2014 None diabetes mellitus Onset of Symptom onset as an adult 08/14/2014 None blood pressure followup Alleviating Factors diet changes 08/14/2014 None blood pressure followup Alleviating Factors exercise 08/14/2014 None blood pressure followup Alleviating Factors medication 08/14/2014 None blood pressure followup Blood Pressure Values not checking blood pressure at home 08/14/2014 None blood pressure followup Blood Pressure Values pt checking blood pressure - see scanned document 08/14 None blood pressure followup Frequency of Episodes unchanged 08/14/2014 None blood pressure followup Onset and Resolution ongoing 08/14/2014 None blood pressure followup Onset of Symptom during childhood 08/14/2014 None blood pressure followup Quality chronic 08/14/2014 None blood pressure followup Triggers stress 08/14/2014 None Advance Directives No Advance Directive data Encounters Encounter Performer Location Codes Date ([id number]) 32052 EST. PATIENT, LEVEL III Diagnosis: Type 2 diabetes mellitus with hyperglycemia[ICD10: E11.65] [facility] CPT-4: 96097 10/26/2017 ([id number]) Miscellaneous no charge Diagnosis: Type 2 diabetes mellitus with hyperglycemia[ICD10: E11.65] Claudia Nicole MD, [facility] CPT-4: 49936 10/18/2017 ([id number]) 59368 EST. 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 PATIENT, LEVEL IV Diagnosis: Type 2 diabetes mellitus with hyperglycemia[ICD10: E11.65] Diagnosis: Paroxysmal atrial fibrillation[ICD10: I48.0] Diagnosis: Essential (primary) hypertension[ICD10: I10] Mila Nicole MD, [facility] CPT-4: 05710 07/06/2017 ([id number]) 71362 EST. PATIENT, LEVEL IV Diagnosis: Essential (primary) hypertension[ICD10: I10] Diagnosis: Type 2 diabetes mellitus with hyperglycemia[ICD10: E11.65] Diagnosis: Paroxysmal atrial fibrillation[ICD10: I48.0] Claudia Nicole MD, [facility] CPT-4: 06570 06/03/2017 92542 EST. PATIENT, LEVEL III Diagnosis: Generalized anxiety disorder[ICD10: F41.1] Diagnosis: Major depressive disorder, recurrent, moderate[ICD10: F33.1] Diagnosis: Paroxysmal tachycardia, unspecified[ICD10: I47.9] Gardenia Nicole MD, [facility] CPT-4: 73166 05/12/2017 ([id number]) 74417 EST. PATIENT, LEVEL IV Diagnosis: Essential (primary) hypertension[ICD10: I10] Diagnosis: Cough[ICD10: R05] Diagnosis: Dysuria[ICD10: R30.0] Mila Nicole MD, [facility] CPT-4: 74359 04/15/2017 ([id number]) 88166 EST. PATIENT, LEVEL IV Diagnosis: Type 2 diabetes mellitus with hyperglycemia[ICD10: E11.65] Diagnosis: Essential (primary) hypertension[ICD10: I10] Mila Nicole MD, [facility] CPT-4: 53747 03/19/2017 ([id number]) 15548 EST. PATIENT, LEVEL III Diagnosis: Type 2 diabetes mellitus with hyperglycemia[ICD10: E11.65] Mila Nicole MD , [facility] CPT-4: 39882 02/03/2017 [id number] EST. PATIENT, LEVEL IV Diagnosis: Generalized anxiety disorder[ICD10: F41.1] Diagnosis: Type 2 diabetes mellitus with hyperglycemia[ICD10: E11.65] Diagnosis: Essential (primary) hypertension[ICD10: I10] Gardenia Nicole MD, [facility] CPT-4: 49717 01/07/2017 ([id number]) 99550 EST. PATIENT, LEVEL III Diagnosis: Type 2 diabetes mellitus with hyperglycemia[ICD10: E11.65] Diagnosis: Encounter for immunization[ICD10: Z23] Mila Nicole MD, [facility] CPT-4: 29836 12/17/2016 ([id number]) 55632 EST. PATIENT, LEVEL IV Diagnosis: Type 2 diabetes mellitus with hyperglycemia[ICD10: E11.65] Diagnosis: Essential (primary) hypertension[ICD10: I10] Diagnosis: Major depressive disorder, recurrent, mild[ICD10: F33.0] Mila Nicole MD, [facility] CPT-4: 80072 09/14/2016 ([id number]) 26385 EST. 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 PATIENT, LEVEL IV Diagnosis: Type 2 diabetes mellitus with hyperglycemia[ICD10: E11.65] Diagnosis: Essential (primary) hypertension[ICD10: I10] Mila Nicole MD, [facility] CPT-4: 91478 04/16/2016 ([id number]) 28752 EST. 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 PATIENT, LEVEL IV Diagnosis: Type 2 diabetes mellitus with hyperglycemia[ICD10: E11.65] Diagnosis: Encounter for immunization[ICD10: Z23] Diagnosis: Essential (primary) hypertension[ICD10: I10] Mila Nicole MD, [facility] CPT-4: 39218 11/14/2015 ([id number]) 98234 EST. PATIENT, LEVEL IV Diagnosis: Type 2 diabetes mellitus with hyperglycemia[ICD10: E11.65] Diagnosis: Essential (primary) hypertension[ICD10: I10] Diagnosis: Low back pain[ICD10: M54.5] Mila Nicole MD, [facility] CPT- 4: 72492 08/14/2015 ([id number]) 02728 EST. PATIENT, LEVEL IV Diagnosis: Type 2 diabetes mellitus with hyperglycemia[ICD10: E11.65] Diagnosis: Essential (primary) hypertension[ICD10: I10] Diagnosis: Hypothyroidism, unspecified[ICD10: E03.9] Mila Nicole MD, [facility] CPT-4: 76373 07/17/2015 ([id number]) 37913 EST. PATIENT, LEVEL IV Diagnosis: Essential (primary) hypertension[ICD10: I10] Diagnosis: Type 2 diabetes mellitus with hyperglycemia[ICD10: E11.65] Diagnosis: Headache[ICD10: R51] Gardenia Nicole MD, [facility] CPT-4: 00012 03/25/2015 ([id number]) 04605 EST. PATIENT, LEVEL IV Diagnosis: ESSENTIAL HYPERTENSION[ICD9: 401.9] Diagnosis: DIABETES TYPE II[ICD9: 250.00] Diagnosis: Aortic stenosis[ICD9: 424.1] Mila Nicole MD, [facility] CPT- 4: 45672 12/04/2014 ([id number]) OFFICE VISIT, NEW - LEVEL 4 Diagnosis: ESSENTIAL HYPERTENSION[ICD9: 401.9] Diagnosis: Diabetes mellitus out of control[ICD9: 250.02] Mila Nicole MD, [facility] CPT-4: 52677 08/14/2014 Plan of Care Planned Activity Notes Codes Status Date Visit Plan: Diabetes Mellitus -IPRO results reviewed and discussed with patient today in the office -patient is about target range 77% of the time with no low -recommend patient increase her basaglar to 18 units daily and continue to monitor blood sugars -follow up in [address] Nicole and bring log of blood sugars to appt. 10/26/2017 Appointment: [facility]el[facility] [phone] [id number] [place] (15 min) Moderate 10/26/2017 Patient Education: Patient Medication Summary Completed 10/26/2017 Appointment: Nurse Visit 10/18/2017 Patient Education: Patient Medication Summary Completed 10/18/2017 Visit Plan: DM-patient is here for placement of IPRO glucose monitor - -the patient has been instructed to continue with current medications as previously directed, continue with regular FSBS monitoring and to keep log of food over the next 5 days so we can get a full picture of blood sugar control. Return next Wednesday for removal of device and in the next 2 weeks for review of IPRO results. Patient verbalized understanding of plan. 10/11/2017 Appointment: Claudia Pruitt WPtel: [phone] [phone] [place] (30 min) Complex 10/11/2017 Patient Education: Patient Medication Summary Completed 10/11/2017 Visit Plan: Diabetes Mellitus - Uncontrolled - per recent FSBS reports. I have recommended for the patient to have follow up labs prior to the next office visit. The patient has been instructed to continue with current medications as previously directed, continue with regular FSBS monitoring to assure continued control of diabetes. Pt to call for any acute concerns, complaints, or if the blood glucose readings are starting to become less controlled. I have recommended for the patient to follow more strictly to the diabetic diet as discussed in clinic to allow for greater blood glucose control. increase basaglar to 15 units at bedtime - call the office in about a week to let us know what your blood glucose readings are doing. set her up for ipro Hypertension - well controlled - continue with current medications, continue with no added salt diet. Pt has been encouraged to exercise daily. The pt has been advised to call the office if there are any acute concerns about change in blood pressure readings at home. 09/22/2017 Patient Education: Patient Medication Summary Completed 09/22/2017 [facility]ment: [facility] [phone] [facility] [place] (15 min) Moderate 09/13/2017 Appointment: Mila Nicole WPtel: [phone] [facility] (15 min) Moderate 09/07/2017 Visit Plan: Diabetes Mellitus - controlled - per recent FSBS reports. I have recommended for the patient to have follow up labs prior to the next office visit. The patient has been instructed to continue with current medications as previously directed, continue with regular FSBS monitoring to assure continued control of diabetes. Pt to call for any acute concerns, complaints, or if the blood glucose readings are starting to become less controlled. Hypertension - well controlled - continue with current medications, continue with no added salt diet. Pt has been encouraged to exercise daily. The pt has been advised to call the office if there are any acute concerns about change in blood pressure readings at home. Atrial Fibrillation - pt on chronic anticoagulation and is currently rate controlled. The pt is to have labs done as appropriate to monitor medication levels and is to report if they start to feel as if their heart rate is becoming uncontrolled. 07/06/2017 Appointment: [facility] [phone] [facility] (15 min) Moderate 07/06/2017 Patient Education: Patient Medication Summary Completed 07/06/2017 Appointment: Mila Nicole WPtel: [facility] (15 min) Moderate 06/07/2017 Visit Plan: Hypertension - well controlled - continue with current medications, continue with no added salt diet. Pt has been encouraged to exercise daily. The pt has been advised to call the office if there are any acute concerns about change in blood pressure readings at home. Atrial Fibrillation - pt on chronic anticoagulation and is currently rate controlled. The pt is to have labs done as appropriate to monitor medication levels and is to report if they start to feel as if their heart rate is becoming uncontrolled. Diabetes Mellitus - controlled - per recent FSBS reports. I have recommended for the patient to have follow up labs prior to the next office visit. The patient has been instructed to continue with current medications as previously directed, continue with regular FSBS monitoring to assure continued control of diabetes. Pt to call for any acute concerns, complaints, or if the blood glucose readings are starting to become less controlled. 06/03/2017 Appointment: Claudia Pruitt WPtel: [phone] [phone] (30 min) Complex 06/03/2017 Patient Education: Patient Medication Summary Completed 06/03/2017 Visit Plan: Anxiety - the patient has uncontrolled anxiety and will benefit from an SSRI on a daily basis to attempt control of the symptoms of anxiety (tachycardia, overwhelming sensations, stress, insomnia, etc ). I also believe that the patient will benefit from very low dose of prn benzodiazepine. Pt is aware of the risks and benefits of treatment with the above medications. Depression - uncontrolled - Pt has been counseled about the diagnosis of depression, the potential causes, and risks associated with the diagnosis. The pt denies suicidal ideation, or plans. The patient has been counseled about treatment options, and understands the risks associated with treatment of depression, as well as the risks associated with NOT treating the depression. I believe the pt will benefit from medical intervention and an antidepressant has been appropriately prescribed for this patient. Tachycardia - discussed with Dr. Owens's office - they will contact pt and have her come in for an evaluation - pt is to notify clinic with any changes in current treatment plan 05/12/2017 Appointment: Garden[facility] Shah [facility]Ptel: [phone] [facility] (30 min) Complex 05/12/2017 Patient Education: Patient Medication Summary Completed 05/12/2017 Visit Plan: Hypertension - well controlled - continue with current medications, continue with no added salt diet. Pt has been encouraged to exercise daily. The pt has been advised to call the office if there are any acute concerns about change in blood pressure readings at home. Diabetes Mellitus - controlled - per recent FSBS reports. I have recommended for the patient to have follow up labs prior to the next office visit. The patient has been instructed to continue with current medications as previously directed, continue with regular FSBS monitoring to assure continued control of diabetes. Pt to call for any acute concerns, complaints, or if the blood glucose readings are starting to become less controlled. It looks like her FSBS average is about 150 - she is to continue with insulin at current dose. Cough - I think the entresto is causing you to cough - the Entresto has a component to it which is called an ROM-Inhibitor - the class of medication of ROM Inhibitors has a known side effect of chronic cough. He may or may not choose to change the Entresto medication. 04/15/2017 Appointment: [facility] [phone] [facility] (15 min) Moderate 04/15/2017 Patient Education: Patient Medication Summary Completed 04/15/2017 Visit Plan: Hypertension - well controlled - continue with current medications, continue with no added salt diet. Pt has been encouraged to exercise daily. The pt has been advised to call the office if there are any acute concerns about change in blood pressure readings at home. Diabetes Mellitus - controlled - per recent FSBS reports. I have recommended for the patient to have follow up labs prior to the next office visit. The patient has been instructed to continue with current medications as previously directed, continue with regular FSBS monitoring to assure continued control of diabetes. Pt to call for any acute concerns, complaints, or if the blood glucose readings are starting to become less controlled. It looks like her FSBS average is about 150 - she is to continue with insulin at 10 units daily. 03/19/2017 Appointment: Mila Nicole WPtel: [phone] [id number] (15 min) Moderate 03/19/2017 Patient Education: Patient Medication Summary Completed 03/19/2017 [facility]ment[id number] (15 min) Moderate 02/24/2017 Visit Plan: Diabetes Mellitus - Uncontrolled - per recent FSBS reports. I have recommended for the patient to have follow up labs prior to the next office visit. The patient has been instructed to continue with current medications as previously directed, continue with regular FSBS monitoring to assure continued control of diabetes. Pt to call for any acute concerns, complaints, or if the blood glucose readings are starting to become less controlled. I have recommended for the patient to follow more strictly to the diabetic diet as discussed in clinic to allow for greater blood glucose control. Stop Victoza and start on lantus 10 units at HS 02/03/2017 Appointment: [id number] (15 min) Moderate 02/03/2017 Patient Education: Patient Medication Summary Completed 02/03/2017 Patient Education: Obesity Completed 02/03/2017 Visit Plan: Anxiety - the patient has uncontrolled anxiety and will benefit from very low dose of prn benzodiazepine to attempt control of the symptoms of anxiety (tachycardia, overwhelming sensations, stress, insomnia , etc). Pt is aware of the risks and benefits of treatment with the above medications. Diabetes Mellitus - I have recommended for the patient to have follow up labs prior to the next office visit. The patient has been instructed to continue with current medications as previously directed, continue with regular FSBS monitoring to assure continued control of diabetes. Pt to call for any acute concerns, complaints, or if the blood glucose readings are starting to become less controlled. I have recommended for the patient to follow more strictly to the diabetic diet as discussed in clinic to allow for greater blood glucose control. Hypertension - The patient has been counseled to cut back on salt in diet for a no added salt diet, low fat diet, start an exercise program with low weight bearing exercises and higher aerobic activity for heart health. The patient is to check blood pressure readings as an outpatient and either fax , call, or email the readings to the office next week for practitioner to review. The pt is to call for acute concerns. 01/07/2017 Appointment: Gardenia [facility]el[facility] [phone] [facility] [id number] (30 min) Complex 01/07/2017 Patient Education: Patient Medication Summary Completed 01/07/2017 Patient Education: Obesity Completed 01/07/2017 Patient Education: Hypertension Completed 01/07/2017 Visit Plan: Diabetes Mellitus - Uncontrolled - per recent FSBS reports. I have recommended for the patient to have follow up labs prior to the next office visit. The patient has been instructed to continue with current medications as previously directed, continue with regular FSBS monitoring to assure continued control of diabetes. Pt to call for any acute concerns, complaints, or if the blood glucose readings are starting to become less controlled. I have recommended for the patient to follow more strictly to the diabetic diet as discussed in clinic to allow for greater blood glucose control. [id number], 02/2018 junior nordisk 12/17/2016 Appointment: Mila Nicole WPtel: [phone] [facility] (15 min) Moderate 12/17/2016 Patient Education: Patient Medication Summary Completed 12/17/2016 Patient Education: Obesity Completed 12/17/2016 Appointment: Mila Nicole WPtel: [phone] [facility] (15 min) Moderate 12/14/2016 Visit Plan: Diabetes Mellitus - controlled - per recent FSBS reports. I have recommended for the patient to have follow up labs prior to the next office visit. The patient has been instructed to continue with current medications as previously directed, continue with regular FSBS monitoring to assure continued control of diabetes. Pt to call for any acute concerns, complaints, or if the blood glucose readings are starting to become less controlled. Hypertension - well controlled - continue with current medications, continue with no added salt diet. Pt has been encouraged to exercise daily. The pt has been advised to call the office if there are any acute concerns about change in blood pressure readings at home. Chronic Depression and anxiety - the pt has symptoms of chronic anxiety and depression that have been fairly well controlled since the last office visit. The pt has expected periods of exacerbation with abatement of the symptoms with change in situational exposure. No change in current medications. 09/14/2016 Appointment: Mila Nicole WPtel: [phone] [id number] (15 min) Moderate 09/14/2016 Patient Education: Patient Medication Summary Completed 09/14/2016 Patient Education: Obesity Completed 09/14/2016 Patient Education: Hypertension Completed 09/14/2016 Visit Plan: Diabetes Mellitus - controlled - per recent FSBS reports. I have recommended for the patient to have follow up labs prior to the next office visit. The patient has been instructed to continue with current medications as previously directed, continue with regular FSBS monitoring to assure continued control of diabetes. Pt to call for any acute concerns, complaints, or if the blood glucose readings are starting to become less controlled. Hypertension - well controlled - continue with current medications, continue with no added salt diet. Pt has been encouraged to exercise daily. The pt has been advised to call the office if there are any acute concerns about change in blood pressure readings at home. 06/18/2016 Appointment: [facility]el[phone] [place] (15 min) Moderate 06/18/2016 Patient Education: Patient Medication Summary Completed 06/18/2016 Patient Education: Obesity Completed 06/18/2016 Patient Education: Hypertension Completed 06/18/2016 Visit Plan: Diabetes Mellitus - controlled - per recent FSBS reports. I have recommended for the patient to have follow up labs prior to the next office visit. The patient has been instructed to continue with current medications as previously directed, continue with regular FSBS monitoring to assure continued control of diabetes. Pt to call for any acute concerns, complaints, or if the blood glucose readings are starting to become less controlled. Hypertension - well controlled - continue with current medications, continue with no added salt diet. Pt has been encouraged to exercise daily. The pt has been advised to call the office if there are any acute concerns about change in blood pressure readings at home. 04/16/2016 Appointment: [facility]el[phone] [facility] [place] (15 min) Moderate 04/16/2016 Patient Education: Patient Medication Summary Completed 04/16/2016 Patient Education: Obesity Completed 04/16/2016 Patient Education: Hypertension Completed 04/16/2016 Visit Plan: Diabetes Mellitus - controlled - per recent FSBS reports. I have recommended for the patient to have follow up labs prior to the next office visit. The patient has been instructed to continue with current medications as previously directed, continue with regular FSBS monitoring to assure continued control of diabetes. Pt to call for any acute concerns, complaints, or if the blood glucose readings are starting to become less controlled. check hgba1c today Hypertension - well controlled - continue with current medications, continue with no added salt diet. Pt has been encouraged to exercise daily. The pt has been advised to call the office if there are any acute concerns about change in blood pressure readings at home. Peripheral neuropathy - continue with gabapentin 03/19/2016 Appointment: [phone] [facility] [place] (15 min) Moderate 03/19/2016 Patient Education: Patient Medication Summary Completed 03/19/2016 Patient Education: Obesity Completed 03/19/2016 Patient Education: Hypertension Completed 03/19/2016 Visit Plan: Diabetes Mellitus - controlled - per recent FSBS reports. I have recommended for the patient to have follow up labs prior to the next office visit. The patient has been instructed to continue with current medications as previously directed, continue with regular FSBS monitoring to assure continued control of diabetes. Pt to call for any acute concerns, complaints, or if the blood glucose readings are starting to become less controlled. check hgba1c today flu shot today Hypertension - well controlled - continue with current medications, continue with no added salt diet. Pt has been encouraged to exercise daily. The pt has been advised to call the office if there are any acute concerns about change in blood pressure readings at home. 11/14/2015 Appointment: Mila Nicole WPtel: [address] [place], [place] [id number] (15 min) Moderate 11/14/2015 Patient Education: Patient Medication Summary Completed 11/14/2015 Patient Education: Obesity Completed 11/14/2015 Patient Education: Hypertension Completed 11/14/2015 Visit Plan: Diabetes Mellitus - controlled - per recent FSBS reports. I have recommended for the patient to have follow up labs prior to the next office visit. The patient has been instructed to continue with current medications as previously directed, continue with regular FSBS monitoring to assure continued control of diabetes. Pt to call for any acute concerns, complaints, or if the blood glucose readings are starting to become less controlled. Hypertension - well controlled - continue with current medications, continue with no added salt diet. Pt has been encouraged to exercise daily. The pt has been advised to call the office if there are any acute concerns about change in blood pressure readings at home. Back pain - gabapentin for back pain. 08/14/2015 Patient Education: Patient Medication Summary Completed 08/14/2015 Patient Education: Obesity Completed 08/14/2015 Visit Plan: Hypertension - well controlled - continue with current medications, continue with no added salt diet. Pt has been encouraged to exercise daily. The pt has been advised to call the office if there are any acute concerns about change in blood pressure readings at home. Diabetes Mellitus - controlled - per recent FSBS reports. I have recommended for the patient to have follow up labs prior to the next office visit. The patient has been instructed to continue with current medications as previously directed, continue with regular FSBS monitoring to assure continued control of diabetes. Pt to call for any acute concerns, complaints, or if the blood glucose readings are starting to become less controlled. Yeas infection of vaginal tissue - stop invokana and start on diflucan treatment - check Hgba1c 07/17/2015 Appointment: Mil[facility] Nicole [facility]el[phone] [place] (15 min) Moderate 07/17/2015 Patient Education: Patient Medication Summary Completed 07/17/2015 Patient Education: Obesity Completed 07/17/2015 Visit Plan: Follow up from ED - pt was treated for a UTI - pt was also having headaches, which are brief and intermittent - finish abx as ordered, notify clinic if symptoms do not improve, if they worsen, or with any concerns. Diabetes Mellitus - I have recommended for the patient to have follow up labs prior to the next office visit. The patient has been instructed to continue with current medications as previously directed, continue with regular FSBS monitoring to assure continued control of diabetes. Pt to call for any acute concerns, complaints, or if the blood glucose readings are starting to become less controlled. Hypertension - well controlled - continue with current medications, continue with no added salt diet. Pt has been encouraged to exercise daily. The pt has been advised to call the office if there are any acute concerns about change in blood pressure readings at home. Hypothyroidism - pt with chronic hypothyroidism, continue with current medication, will monitor pt to signs or symptoms of lack of adequate supplementation. Pt is to continue with current dose of medication unless directed otherwise. Check labs at regular intervals wither q 3 months or q 6 months based on previous levels of control. 03/25/2015 Visit Plan: Follow up from ED - pt was treated for a UTI - pt was also having headaches, which are brief and intermittent - finish abx as ordered, notify clinic if symptoms do not improve, if they worsen, or with any concerns. Diabetes Mellitus - I have recommended for the patient to have follow up labs prior to the next office visit. The patient has been instructed to continue with current medications as previously directed, continue with regular FSBS monitoring to assure continued control of diabetes. Pt to call for any acute concerns, complaints, or if the blood glucose readings are starting to become less controlled. Hypertension - well controlled - continue with current medications, continue with no added salt diet. Pt has been encouraged to exercise daily. The pt has been advised to call the office if there are any acute concerns about change in blood pressure readings at home. Hypothyroidism - pt with chronic hypothyroidism, continue with current medication, will monitor pt to signs or symptoms of lack of adequate supplementation. Pt is to continue with current dose of medication unless directed otherwise. Check labs at regular intervals wither q 3 months or q 6 months based on previous levels of control. 03/25/2015 Appointment: (30 min) Complex 03/25/2015 Patient Education: Patient Medication Summary Completed 03/25/2015 Patient Education: Hypertension Completed 03/25/2015 Appointment: Mila Nicole WPtel: [phone] [facility] (15 min) Moderate 01/14/2015 Visit Plan: Diabetes Mellitus - controlled - per recent FSBS reports. I have recommended for the patient to have follow up labs prior to the next office visit. The patient has been instructed to continue with current medications as previously directed, continue with regular FSBS monitoring to assure continued control of diabetes. Pt to call for any acute concerns, complaints, or if the blood glucose readings are starting to become less controlled. Hypertension - well controlled - continue with current medications, continue with no added salt diet. Pt has been encouraged to exercise daily. The pt has been advised to call the office if there are any acute concerns about change in blood pressure readings at home. Hypothyroidism - pt with chronic hypothyroidism, continue with current medication, will monitor pt to signs or symptoms of lack of adequate supplementation. Pt is to continue with current dose of medication unless directed otherwise. Check labs at regular intervals wither q 3 months or q 6 months based on previous levels of control. 12/04/2014 Appointment: [id number] (15 min) Moderate 12/04/2014 Patient Education: Patient Medication Summary Completed 12/04/2014 Patient Education: Hypertension Completed 12/04/2014 Visit Plan: Hypertension - uncontrolled - the patient's medications have been modified as documented in the visit note. The patient has been counseled to cut back on salt in diet for a no added salt diet, low fat diet, start an exercise program with low weight bearing exercises and higher aerobic activity for heart health. The patient is to check blood pressure readings as an outpatient and either fax, call, or email the readings to the office next week for practitioner to review. The pt is to call for acute concerns. Diabetes Mellitus - Uncontrolled - per recent FSBS reports. I have recommended for the patient to have follow up labs prior to the next office visit. The patient has been instructed to continue with current medications as previously directed, continue with regular FSBS monitoring to assure continued control of diabetes. Pt to call for any acute concerns, complaints, or if the blood glucose readings are starting to become less controlled. I have recommended for the patient to follow more strictly to the diabetic diet as discussed in clinic to allow for greater blood glucose control. 08/14/2014 Appointment: Mila Nicole WPtel: [facility] [place] [facility] New Patient 08/14/2014 Patient Education: Patient Medication Summary Completed 08/14/2014 Patient Education: Hypertension Completed 08/14/2014 Instructions Comment . Hypertension - well controlled - continue with current medications, continue with no added salt diet. Pt has been encouraged to exercise daily. The pt has been advised to call the office if there are any acute concerns about change in blood pressure readings at home. Diabetes Mellitus - controlled - per recent FSBS reports. I have recommended for the patient to have follow up labs prior to the next office visit. The patient has been instructed to continue with current medications as previously directed, continue with regular FSBS monitoring to assure continued control of diabetes. Pt to call for any acute concerns, complaints, or if the blood glucose readings are starting to become less controlled. It looks like her FSBS average is about 150 - she is to continue with insulin at 10 units daily. . Diabetes Mellitus - controlled - per recent FSBS reports. I have recommended for the patient to have follow up labs prior to the next office visit. The patient has been instructed to continue with current medications as previously directed, continue with regular FSBS monitoring to assure continued control of diabetes. Pt to call for any acute concerns, complaints, or if the blood glucose readings are starting to become less controlled. Hypertension - well controlled - continue with current medications, continue with no added salt diet. Pt has been encouraged to exercise daily. The pt has been advised to call the office if there are any acute concerns about change in blood pressure readings at home. Back pain - gabapentin for back pain. . Diabetes Mellitus - controlled - per recent FSBS reports. I have recommended for the patient to have follow up labs prior to the next office visit. The patient has been instructed to continue with current medications as previously directed, continue with regular FSBS monitoring to assure continued control of diabetes. Pt to call for any acute concerns, complaints, or if the blood glucose readings are starting to become less controlled. check hgba1c today Hypertension - well controlled - continue with current medications, continue with no added salt diet. Pt has been encouraged to exercise daily. The pt has been advised to call the office if there are any acute concerns about change in blood pressure readings at home. Peripheral neuropathy - continue with gabapentin . Diabetes Mellitus - controlled - per recent FSBS reports. I have recommended for the patient to have follow up labs prior to the next office visit. The patient has been instructed to continue with current medications as previously directed, continue with regular FSBS monitoring to assure continued control of diabetes. Pt to call for any acute concerns, complaints, or if the blood glucose readings are starting to become less controlled. check hgba1c today flu shot today Hypertension - well controlled - continue with current medications, continue with no added salt diet. Pt has been encouraged to exercise daily. The pt has been advised to call the office if there are any acute concerns about change in blood pressure readings at home. . Diabetes Mellitus - controlled - per recent FSBS reports. I have recommended for the patient to have follow up labs prior to the next office visit. The patient has been instructed to continue with current medications as previously directed, continue with regular FSBS monitoring to assure continued control of diabetes. Pt to call for any acute concerns, complaints, or if the blood glucose readings are starting to become less controlled. Hypertension - well controlled - continue with current medications, continue with no added salt diet. Pt has been encouraged to exercise daily. The pt has been advised to call the office if there are any acute concerns about change in blood pressure readings at home. Atrial Fibrillation - pt on chronic anticoagulation and is currently rate controlled. The pt is to have labs done as appropriate to monitor medication levels and is to report if they start to feel as if their heart rate is becoming uncontrolled. . Diabetes Mellitus - controlled - per recent FSBS reports. I have recommended for the patient to have follow up labs prior to the next office visit. The patient has been instructed to continue with current medications as previously directed, continue with regular FSBS monitoring to assure continued control of diabetes. Pt to call for any acute concerns, complaints, or if the blood glucose readings are starting to become less controlled. Hypertension - well controlled - continue with current medications, continue with no added salt diet. Pt has been encouraged to exercise daily. The pt has been advised to call the office if there are any acute concerns about change in blood pressure readings at home. Hypothyroidism - pt with chronic hypothyroidism, continue with current medication, will monitor pt to signs or symptoms of lack of adequate supplementation. Pt is to continue with current dose of medication unless directed otherwise. Check labs at regular intervals wither q 3 months or q 6 months based on previous levels of control. On 02/07/17 - stop the Victoza On 02/08/17 - start on lantus 10 units at night - bring in a copy of your blood glucose readings to the office on 02/15/17 . Diabetes Mellitus - Uncontrolled - per recent FSBS reports. I have recommended for the patient to have follow up labs prior to the next office visit. The patient has been instructed to continue with current medications as previously directed, continue with regular FSBS monitoring to assure continued control of diabetes. Pt to call for any acute concerns, complaints, or if the blood glucose readings are starting to become less controlled. I have recommended for the patient to follow more strictly to the diabetic diet as discussed in clinic to allow for greater blood glucose control. Stop Victoza and start on lantus 10 units at HS INCREASE BASAGLAR TO 18 UNITS DAILY increase basaglar to 15 units at bedtime - call the office in about a week to let us know what your blood glucose readings are doing. . Diabetes Mellitus -IPRO results reviewed and discussed with patient today in the office -patient is about target range 77% of the time with no low - recommend patient increase her basaglar to 18 units daily and continue to monitor blood sugars -follow up in [address] Nicole and bring log of blood sugars to appt. . Hypertension - well controlled - continue with current medications, continue with no added salt diet. Pt has been encouraged to exercise daily. The pt has been advised to call the office if there are any acute concerns about change in blood pressure readings at home. Atrial Fibrillation - pt on chronic anticoagulation and is currently rate controlled. The pt is to have labs done as appropriate to monitor medication levels and is to report if they start to feel as if their heart rate is becoming uncontrolled. Diabetes Mellitus - controlled - per recent FSBS reports. I have recommended for the patient to have follow up labs prior to the next office visit. The patient has been instructed to continue with current medications as previously directed, continue with regular FSBS monitoring to assure continued control of diabetes. Pt to call for any acute concerns, complaints, or if the blood glucose readings are starting to become less controlled. . Follow up from ED - pt was treated for a UTI - pt was also having headaches, which are brief and intermittent - finish abx as ordered , notify clinic if symptoms do not improve, if they worsen, or with any concerns. Diabetes Mellitus - I have recommended for the patient to have follow up labs prior to the next office visit. The patient has been instructed to continue with current medications as previously directed, continue with regular FSBS monitoring to assure continued control of diabetes. Pt to call for any acute concerns, complaints, or if the blood glucose readings are starting to become less controlled. Hypertension - well controlled - continue with current medications, continue with no added salt diet. Pt has been encouraged to exercise daily. The pt has been advised to call the office if there are any acute concerns about change in blood pressure readings at home. Hypothyroidism - pt with chronic hypothyroidism, continue with current medication, will monitor pt to signs or symptoms of lack of adequate supplementation. Pt is to continue with current dose of medication unless directed otherwise. Check labs at regular intervals wither q 3 months or q 6 months based on previous levels of control. increase basaglar to 15 units at bedtime - call the office in about a week to let us know what your blood glucose readings are doing. . Diabetes Mellitus - Uncontrolled - per recent FSBS reports. I have recommended for the patient to have follow up labs prior to the next office visit. The patient has been instructed to continue with current medications as previously directed, continue with regular FSBS monitoring to assure continued control of diabetes. Pt to call for any acute concerns, complaints, or if the blood glucose readings are starting to become less controlled. I have recommended for the patient to follow more strictly to the diabetic diet as discussed in clinic to allow for greater blood glucose control. increase basaglar to 15 units at bedtime - call the office in about a week to let us know what your blood glucose readings are doing. set her up for ipro Hypertension - well controlled - continue with current medications, continue with no added salt diet. Pt has been encouraged to exercise daily. The pt has been advised to call the office if there are any acute concerns about change in blood pressure readings at home. . Hypertension - well controlled - continue with current medications, continue with no added salt diet. Pt has been encouraged to exercise daily. The pt has been advised to call the office if there are any acute concerns about change in blood pressure readings at home. Diabetes Mellitus - controlled - per recent FSBS reports. I have recommended for the patient to have follow up labs prior to the next office visit. The patient has been instructed to continue with current medications as previously directed, continue with regular FSBS monitoring to assure continued control of diabetes. Pt to call for any acute concerns, complaints, or if the blood glucose readings are starting to become less controlled. Yeas infection of vaginal tissue - stop invokana and start on diflucan treatment - check Hgba1c cut back on carbohydrates in food - cut pasta, rice, potato servings to 1/4 of usual intake . Diabetes Mellitus - Uncontrolled - per recent FSBS reports. I have recommended for the patient to have follow up labs prior to the next office visit. The patient has been instructed to continue with current medications as previously directed, continue with regular FSBS monitoring to assure continued control of diabetes. Pt to call for any acute concerns, complaints, or if the blood glucose readings are starting to become less controlled. I have recommended for the patient to follow more strictly to the diabetic diet as discussed in clinic to allow for greater blood glucose control. [id number], 02/2018 [employer] I think the entresto is causing you to cough - the Entresto has a component to it which is called an ROM-Inhibitor - the class of medication of ROM Inhibitors has a known side effect of chronic cough. He may or may not choose to change the Entresto medication. . Hypertension - well controlled - continue with current medications, continue with no added salt diet. Pt has been encouraged to exercise daily. The pt has been advised to call the office if there are any acute concerns about change in blood pressure readings at home. Diabetes Mellitus - controlled - per recent FSBS reports. I have recommended for the patient to have follow up labs prior to the next office visit. The patient has been instructed to continue with current medications as previously directed, continue with regular FSBS monitoring to assure continued control of diabetes. Pt to call for any acute concerns, complaints, or if the blood glucose readings are starting to become less controlled. It looks like her FSBS average is about 150 - she is to continue with insulin at current dose. Cough - I think the entresto is causing you to cough - the Entresto has a component to it which is called an ROM-Inhibitor - the class of medication of ROM Inhibitors has a known side effect of chronic cough. He may or may not choose to change the Entresto medication. . Diabetes Mellitus - controlled - per recent FSBS reports. I have recommended for the patient to have follow up labs prior to the next office visit. The patient has been instructed to continue with current medications as previously directed, continue with regular FSBS monitoring to assure continued control of diabetes. Pt to call for any acute concerns, complaints, or if the blood glucose readings are starting to become less controlled. Hypertension - well controlled - continue with current medications, continue with no added salt diet. Pt has been encouraged to exercise daily. The pt has been advised to call the office if there are any acute concerns about change in blood pressure readings at home. . Anxiety - the patient has uncontrolled anxiety and will benefit from an SSRI on a daily basis to attempt control of the symptoms of anxiety (tachycardia, overwhelming sensations, stress, insomnia, etc). I also believe that the patient will benefit from very low dose of prn benzodiazepine. Pt is aware of the risks and benefits of treatment with the above medications. Depression - uncontrolled - Pt has been counseled about the diagnosis of depression, the potential causes, and risks associated with the diagnosis. The pt denies suicidal ideation, or plans. The patient has been counseled about treatment options, and understands the risks associated with treatment of depression, as well as the risks associated with NOT treating the depression. I believe the pt will benefit from medical intervention and an antidepressant has been appropriately prescribed for this patient. Tachycardia - discussed with Dr. Owens's office - they will contact pt and have her come in for an evaluation - pt is to notify clinic with any changes in current treatment plan Monitor your blood pressure at home and record. Bring in your readings to your next appointment, or as directed. Call for chest pain, shortness of breath, headaches, or other concerns. look on drug plan - for the following diabetic medications bydureon (weekly shot) victoza (daily shot) byetta (twice daily shot) tanzeum (weekly shot) . Hypertension - uncontrolled - the patient's medications have been modified as documented in the visit note. The patient has been counseled to cut back on salt in diet for a no added salt diet, low fat diet, start an exercise program with low weight bearing exercises and higher aerobic activity for heart health. The patient is to check blood pressure readings as an outpatient and either fax , call, or email the readings to the office next week for practitioner to review. The pt is to call for acute concerns. Diabetes Mellitus - Uncontrolled - per recent FSBS reports. I have recommended for the patient to have follow up labs prior to the next office visit. The patient has been instructed to continue with current medications as previously directed, continue with regular FSBS monitoring to assure continued control of diabetes. Pt to call for any acute concerns, complaints, or if the blood glucose readings are starting to become less controlled. I have recommended for the patient to follow more strictly to the diabetic diet as discussed in clinic to allow for greater blood glucose control. Decrease victoza back to your previous dose of 1.2. xanax - low dose - 1/2 to 1 pill daily as needed will check labs keep you appointment for ECHO tomorrow Let me know if your symptoms do not improve, if they worsen, or with any changes or concerns. . Anxiety - the patient has uncontrolled anxiety and will benefit from very low dose of prn benzodiazepine to attempt control of the symptoms of anxiety ( tachycardia, overwhelming sensations, stress, insomnia, etc). Pt is aware of the risks and benefits of treatment with the above medications. Diabetes Mellitus - I have recommended for the patient to have follow up labs prior to the next office visit. The patient has been instructed to continue with current medications as previously directed, continue with regular FSBS monitoring to assure continued control of diabetes. Pt to call for any acute concerns, complaints, or if the blood glucose readings are starting to become less controlled. I have recommended for the patient to follow more strictly to the diabetic diet as discussed in clinic to allow for greater blood glucose control. Hypertension - The patient has been counseled to cut back on salt in diet for a no added salt diet, low fat diet, start an exercise program with low weight bearing exercises and higher aerobic activity for heart health. The patient is to check blood pressure readings as an outpatient and either fax , call, or email the readings to the office next week for practitioner to review. The pt is to call for acute concerns. stop the glimepiride continue with metformin and victoza . Diabetes Mellitus - controlled - per recent FSBS reports. I have recommended for the patient to have follow up labs prior to the next office visit. The patient has been instructed to continue with current medications as previously directed, continue with regular FSBS monitoring to assure continued control of diabetes. Pt to call for any acute concerns, complaints, or if the blood glucose readings are starting to become less controlled. Hypertension - well controlled - continue with current medications, continue with no added salt diet. Pt has been encouraged to exercise daily. The pt has been advised to call the office if there are any acute concerns about change in blood pressure readings at home. Chronic Depression and anxiety - the pt has symptoms of chronic anxiety and depression that have been fairly well controlled since the last office visit. The pt has expected periods of exacerbation with abatement of the symptoms with change in situational exposure. No change in current medications. . Diabetes Mellitus - controlled - per recent FSBS reports. I have recommended for the patient to have follow up labs prior to the next office visit. The patient has been instructed to continue with current medications as previously directed, continue with regular FSBS monitoring to assure continued control of diabetes. Pt to call for any acute concerns, complaints, or if the blood glucose readings are starting to become less controlled. Hypertension - well controlled - continue with current medications, continue with no added salt diet. Pt has been encouraged to exercise daily. The pt has been advised to call the office if there are any acute concerns about change in blood pressure readings at home. . DM-patient is here for placement of IPRO glucose monitor - -the patient has been instructed to continue with current medications as previously directed, continue with regular FSBS monitoring and to keep log of food over the next 5 days so we can get a full picture of blood sugar control. Return next Wednesday for removal of device and in the next 2 weeks for review of IPRO results. Patient verbalized understanding of plan. . Follow up from ED - pt was treated for a UTI - pt was also having headaches, which are brief and intermittent - finish abx as ordered , notify clinic if symptoms do not improve, if they worsen, or with any concerns. Diabetes Mellitus - I have recommended for the patient to have follow up labs prior to the next office visit. The patient has been instructed to continue with current medications as previously directed, continue with regular FSBS monitoring to assure continued control of diabetes. Pt to call for any acute concerns, complaints, or if the blood glucose readings are starting to become less controlled. Hypertension - well controlled - continue with current medications, continue with no added salt diet. Pt has been encouraged to exercise daily. The pt has been advised to call the office if there are any acute concerns about change in blood pressure readings at home. Hypothyroidism - pt with chronic hypothyroidism, continue with current medication, will monitor pt to signs or symptoms of lack of adequate supplementation. Pt is to continue with current dose of medication unless directed otherwise. Check labs at regular intervals wither q 3 months or q 6 months based on previous levels of control.
--- OUTSIDE RECORDS SUMMARY | 2017-12-02 03:38 | XMS REPORT | CCD ---
Author Author [facility] Organization [facility] Address [address] [place] [address] Phone Care Team Providers Care Radiocommunications Technician Name Role Phone PP Unavailable CCM Unavailable Summary Purpose Interface Exchange Insurance Providers Payer name Policy type / Coverage type Covered libertarian ID Effective Begin Date Effective End Date WPS Medicare Part B Medicare Part B [id number] Unknown AARP Medicare Part B [id number] Unknown Family history Mother Diagnosis Age At [...] Unknown 3 08/14/[address]: 218609969 Never smoker 08/14/[address]: 635663525 Never drinks alcohol 08/14/2014 Allergies, Adverse Reactions, Alerts Substance Reaction Codes Entered Date Inactivated Date Status * OTHER REACTION - SEE ANSWER BOX Invokana, Victoza Unknown 07/2017 No Inactive Date Active Paxil has blurred vision RxNorm: 105291 08/14/2014 No Inactive Date Active Lipitor RxNorm: 11497 08/14/2014 No Inactive Date Active Past Medical [...] Start Date Stop Date Status Fill Instructions Nino Escamilla U-100 Insulin 100 unit/mL (3 mL) subcutaneous RxNorm: 6635487 18 Unit(s) SQ daily 10/26/201704/23 Active UPDATE RX levothyroxine 50 mcg tablet RxNorm: 212723 TAKE 1 TABLET BY MOUTH ONCE DAILY 10/15/2017 06/11/2018 Active Generic For:SYNTHROID 50MCG TAB 10/15/2017 9:59:00 AM escitalopram 10 mg tablet RxNorm: 024547 1 Tablet(s) PO QPM 01/201809/16/2018 Active Generic For:LEXAPRO 5MG 01/07/2017 9:05:43 AM Basaglar KwikPen U-100 Insulin 100 unit/mL (3 mL) subcutaneous RxNorm: 6582484 15 Unit(s) SQ daily 09/22/201710/25 Inactive potassium chloride ER 20 mEq tablet,extended release RxNorm: 554733 1 Tablet(s) PO daily 06/22/2017 01/17/2018 Active Lantus Solostar U-100 Insulin 100 unit/mL (3 mL) subcutaneous pen RxNorm: 361546 10 Unit(s) SQ daily 06/08/2017 Inactive Basaglar KwikPen U-100 Insulin 100 unit/mL (3 mL) subcutaneous RxNorm: 4102061 10 Unit(s) SQ daily 06/08/201706/07 Inactive Basaglar KwikPen U-100 Insulin 100 unit/mL (3 mL) subcutaneous RxNorm: 4550270 10 Unit(s) SQ daily 06/08/201709/21 Inactive Lexapro 5 mg tablet RxNorm: 420664 1 Tablet(s) PO daily 201711/27/2017 Active Lexapro 5 mg tablet RxNorm: 343505 1 Tablet(s) PO daily 201705/31/2017 Inactive bisoprolol 5 mg-hydrochlorothiazide 6.25 mg tablet RxNorm: 693219 1 Tablet(s) PO BID 05/04/2017 06/02/2017 Inactive Keflex 500 mg capsule RxNorm: 528380 1 Capsule(s) PO QID 201704/21/2017 Inactive Lantus Solostar 100 unit/mL (3 mL) subcutaneous insulin pen RxNorm: 889026 10 Unit(s) SQ daily 02/03/2017 06/07/2017 Inactive levothyroxine 50 mcg tablet RxNorm: 755510 TAKE 1 TABLET BY MOUTH ONCE DAILY 02/01/2017 09/28/2017 Inactive Generic For:SYNTHROID 50MCG TAB 02/01/2017 9:20:59 AM gabapentin 600 mg tablet RxNorm: 854608 1 Capsule(s) PO TID 01/21/2018 Active Lexapro 5 mg tablet RxNorm: 676670 TAKE 1 TABLET BY MOUTH AT BEDTIME 01/07/2017 09/21/2017 Inactive Generic For:LEXAPRO 5MG 01/07/2017 9:05:43 AM Victoza 2-Dariusz 0.6 mg/0.1 mL (18 mg/3 mL) subcutaneous pen injector RxNorm: 851932 1.8 Milligram(s) SQ daily 12/17/201602/07 Inactive Victoza 3-Dariusz 0.6 mg/0.1 mL (18 mg/3 mL) subcutaneous pen injector RxNorm: 174687 Milligram(s) SQ 12/17/2016 02/07/2017 Inactive Zetia 10 mg tablet RxNorm: 731014 1 Tablet(s) PO daily 201611/11/2017 Active fluticasone 50 mcg/actuation nasal spray,suspension RxNorm: 8026314 [place] NASAL ONE SPRAY IN EACH NOSTRIL TWICE DAILY 09/28/2016 04/25/2017 Inactive Victoza 2-Dariusz 0.6 mg/0.1 mL (18 mg/3 mL) subcutaneous pen injector RxNorm: 181308 1.2 Milligram(s) SQ daily 09/14/201612/16 Inactive Lexapro 5 mg tablet RxNorm: 900351 1 Tablet(s) PO QHS 201612/12/2016 Inactive metformin 500 mg tablet RxNorm: 166698 1 Tablet(s) PO UD 1.5 in morning, noon and 1 at bedtime 09/08/2016 09/02/2017 Inactive glimepiride 4 mg tablet RxNorm: 113016 TAKE 1 TABLET BY MOUTH ONCE DAILY 07/31/2016 09/13/2016 Inactive Generic For:*AMARYL 4MG 07/31/2016 9:02:38 AM Victoza 2-Dariusz 0.6 mg/0.1 mL (18 mg/3 mL) subcutaneous pen injector RxNorm: 214608 1.2 Milligram(s) SQ daily 05/18/201609/13 Inactive Victoza 2-Dariusz 0.6 mg/0.1 mL (18 mg/3 mL) subcutaneous pen injector RxNorm: 242384 1.2 Milligram(s) SQ daily 04/16/201605/17 Inactive levothyroxine 50 mcg tablet RxNorm: 478116 TAKE 1 TABLET BY MOUTH ONCE DAILY 04/08/2016 12/03/2016 Inactive Generic For:SYNTHROID 50MCG TAB 04/08/2016 9:05:40 AM levothyroxine 50 mcg tablet RxNorm: 940411 1 Tablet(s) PO daily TAKE 1 TABLET BY MOUTH ONCE DAILY 04/08/2016 12/03/2016 Inactive Generic For:SYNTHROID 50MCG TAB N O T I C E PRESCRIPTION PREVIOUSLY AUTHORIZED BY DOCTOR:HENRY BAIG bisoprolol 5 mg-hydrochlorothiazide 6.25 mg tablet RxNorm: 296529 1 Tablet(s) PO BID 03/23/2016 03/17/2017 Inactive Victoza 2-Dariusz 0.6 mg/0.1 mL (18 mg/3 mL) subcutaneous pen injector RxNorm: 605503 0.6 Milligram(s) SQ daily 03/19/201604/15 Inactive Lexapro 5 mg tablet RxNorm: 974655 1 Tablet(s) PO QHS 201606/16/2016 Inactive gabapentin 600 mg tablet RxNorm: 454579 1 Capsule(s) PO TID 07/201601/26/2017 Inactive glimepiride 4 mg tablet RxNorm: 352735 1 Tablet(s) PO daily 06/05/2016 Inactive Victoza 3-Dariusz 0.6 mg/0.1 mL (18 mg/3 mL) subcutaneous pen injector RxNorm: 692654 0.6 Milligram(s) SQ daily x2 weeks, then 1.2 mg SQ daily 03/18/2016 Inactive metformin 500 mg tablet RxNorm: 558697 1 Tablet(s) PO UD 1.5 in morning, noon and 1 at bedtime 08/14/2015 08/07/2016 Inactive gabapentin 600 mg tablet RxNorm: 593819 1 Capsule(s) PO TID SHE IS ONLY TAKING 1 QD 08/14/2015 03/18/2016 Inactive fluticasone 50 mcg/actuation nasal spray,suspension RxNorm: 370345 [place] NASAL ONE SPRAY IN EACH NOSTRIL TWICE DAILY 07/26/2015 07/25/2015 Inactive fluticasone 50 mcg/actuation nasal spray,suspension RxNorm: 4625770 [place] NASAL ONE SPRAY IN EACH NOSTRIL TWICE DAILY 07/26/2015 02/20/2016 Inactive bisoprolol 5 mg-hydrochlorothiazide 6.25 mg tablet RxNorm: 071635 1 Tablet(s) PO daily 1 Tablet(s) PO BID 07/17/20152015 Inactive metformin 500 mg tablet RxNorm: 482806 1 Tablet(s) PO TID 1 Tablet(s) PO TID 07/17/2015 08/13/2015 Inactive Diflucan 100 mg tablet RxNorm: 943925 1 Tablet(s) PO daily 06/201507/21/2015 Inactive Zetia 10 mg tablet RxNorm: 430802 1 Tablet(s) PO daily 201506/03/2016 Inactive bisoprolol 5 mg-hydrochlorothiazide 6.25 mg tablet RxNorm: 688629 1 Tablet(s) PO BID 04/18/2015 07/16/2015 Inactive metformin 500 mg tablet RxNorm: 305862 1 Tablet(s) PO TID 03/0106/28/2015 Inactive glimepiride 4 mg tablet RxNorm: 466949 1 Tablet(s) PO daily 01/30/2015 Inactive levothyroxine 50 mcg tablet RxNorm: 293788 TAKE 1 TABLET BY MOUTH ONCE DAILY 01/31/2015 09/27/2015 Inactive Generic For:SYNTHROID 50MCG TAB N O T I C E PRESCRIPTION PREVIOUSLY AUTHORIZED BY DOCTOR:HENRY BAIG glimepiride 4 mg tablet RxNorm: 145741 1 Tablet(s) PO daily 07/29/2015 Inactive Invokana 100 mg tablet RxNorm: 1855461 1 Tablet(s) PO daily 07/16/2015 Inactive bisoprolol 5 mg-hydrochlorothiazide 6.25 mg tablet RxNorm: 662509 1 Tablet(s) PO BID 08/27/2014 02/22/2015 Inactive metformin 500 mg tablet RxNorm: 909624 1 Tablet(s) PO TID 08/1012/07/2014 Inactive metformin 500 mg tablet RxNorm: 788054 1 Tablet(s) PO TID 08/1008/09/2014 Inactive Eliquis 5 mg tablet RxNorm: 9205455 1 Tablet(s) PO BID No Start Date Active Fish Oil 1,000 mg capsule RxNorm: 1 Capsule(s) PO daily No Start Date Active Protonix 40 mg tablet,delayed release RxNorm: 602290 1 Tablet(s) PO QAM No Start Date Active furosemide 40 mg tablet RxNorm: 115052 1 Tablet(s) PO daily No Start Date Active digoxin 250 mcg tablet RxNorm: 882376 1 Tablet(s) PO daily No Start Date Active pen needle, diabetic 31 gauge x 1/6" RxNorm: Miscellaneous No Start Date Active Effient 10 mg tablet RxNorm: 683535 1 Tablet(s) PO QAM No Start Date Active metoprolol succinate ER 100 mg tablet,extended release 24 hr RxNorm: 671729 1 Tablet(s) PO daily No Start Date Active nitroglycerin 0.4 mg sublingual tablet RxNorm: 430338 1 Tablet(s) SL as needed chest pain No Start Date Active Entresto 24 mg-26 mg tablet RxNorm: 4742434 1 Tablet(s) PO BID No Start Date Active aspirin 81 mg chewable tablet RxNorm: 106858 1 Tablet(s) PO daily No Start Date 06/02/2017 Inactive bisoprolol-hydrochlorothiazide oral RxNorm: 65543 oral No Start Date 08/26/2014 Inactive levothyroxine 50 mcg tablet RxNorm: 987749 1 Tablet(s) PO daily No Start Date 01/30/2015 Inactive potassium chloride ER 20 mEq tablet,extended release RxNorm: 940601 1 Tablet(s) PO daily No Start Date 06/21/2017 Inactive Invokana 100 mg tablet RxNorm: 5855534 1 Tablet(s) PO daily No Start Date 12/11/2014 Inactive Victoza 3-Dariusz 0.6 mg/0.1 mL (18 mg/3 mL) subcutaneous pen injector RxNorm: 343726 0.6 Milligram(s) SQ daily x2 weeks, then 1.2 mg SQ daily No Start Date 12/01/2015 Inactive Zetia 10 mg tablet RxNorm: 398585 1 Tablet(s) PO BID No Start Date 03/18/2016 Inactive gabapentin 300 mg capsule RxNorm: 239347 1 Capsule(s) PO BID No Start Date 08/13/2015 Inactive Lasix 40 mg tablet RxNorm: 946173 1 Tablet(s) PO BID No Start Date 04/14/2017 Inactive Coreg 3.125 mg tablet RxNorm: 729274 1 Tablet(s) PO BID with meals No [...] 04/15/2017 stress test and then shipped to [facility] Follow Up 03/19/2017 stress test and then shipped to [place] diabetes mellitus 02/03/2017 headache 01/07/2017 diabetes mellitus 12/17/2016 diabetes mellitus 09/14/2016 diabetes mellitus 06/18/2016 medication follow up 04/16/2016 back pain 03/19/2016 back pain 11/14/2015 back pain 08/14/2015 diabetes mellitus 07/17/2015 Hospital Follow Up 03/25/2015 diabetes mellitus 12/04/2014 diabetes mellitus 08/14/2014 Results Observation Observation Code Item Item Code Result Date Test(s) Not Perfromed [id number] Test(s) Not Performed Test(s) Not Performed. 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 Miguel Mclaughlin 2017 B Type Natriuretic Peptide Isw8890 B-STITCHER AROUND 889.00 pg/ml 2017 Cbc With Differential Ord2 WBC 5.72 K/ul 09/20/2017 Cbc With Differential Ord2 RBC 3.88 M/ul 09/20/2017 Cbc With Differential Ord2 HGB 11.2 g/dl 09/20/2017 Cbc With Differential Ord2 HCT 35.0 % 09/20/2017 Cbc With Differential Ord2 Neut% 62.4 % 09/20/2017 Cbc With Differential Ord2 MCV 90.2 fl 09/20/2017 Cbc With Differential Ord2 Lymph% 29.4 % 09/20/2017 Cbc With Differential Ord2 MCH 28.9 pg 09/20/2017 Cbc With Differential Ord2 Gregory% 5.6 % 09/20/2017 Cbc With Differential Ord2 [...] 1.68 K/ul 09/20/2017 Cbc With Differential Ord2 Gregory ABS# 0.3 K/ul 09/20/2017 Cbc With Differential Ord2 Eos ABS# 0.1 K/ul 09/20/2017 Cbc With Differential Ord2 Baso ABS# 0.0 K/ul 09/20/2017 %Hba1C Rfq502 % HbA1c 08329-9 7.9 % 09/20/2017 %Hba1C Khk216 Gluc Ave 180 mg/dL 09/20/2017 Magnesium Ord90 [...] 88.5 fl 07/07/2017 Cbc With Differential Ord2 Gregory% 7.9 % 07/07/2017 Cbc With Differential Ord2 MCH 28.3 pg 07/07/2017 Cbc With Differential Ord2 Eos% 2.2 % 07/07/2017 Cbc With Differential Ord2 MCHC 31.9 pg 07/07/2017 Cbc With Differential Ord2 PLT 278 K/ul 07/07/2017 Cbc With Differential Ord2 Baso% 0.7 % 07/07/2017 Cbc With Differential Ord2 Neut ABS# 2.70 K/ul 07/07/2017 Cbc With Differential Ord2 RDW 15.7 % 07/07/2017 Cbc With Differential Ord2 Lymph ABS# 1.34 K/ul 07/07/2017 Cbc With Differential Ord2 Gregory ABS# 0.4 K/ul 07/07/2017 Cbc With Differential Ord2 Eos ABS# 0.1 K/ul 07/07/2017 Cbc With Differential Ord2 Baso ABS# 0.0 K/ul 07/07/2017 Comp Metabolic Hkm761 NA 142 mEq/L 07/07/2017 Comp Metabolic Mih779 K 4.3 mEq/L 07/07/2017 Comp Metabolic Nqg940 CL 105 mEq/L 07/07/2017 Comp Metabolic Kqd065 CO2 28.0 mEq/L 07/07/2017 Comp Metabolic Mjd432 ANION GAP 13 07/07/2017 Comp Metabolic Ric000 GLUCOSE 197 mg/dL 07/07/2017 Comp Metabolic Zbi710 Creat 1.1 mg/dL 07/07/2017 Comp Metabolic Bck452 eGFR 51 ml/min/1.73m2 07/07/2017 Comp Metabolic Lfz586 BUN 21 mg/dL 07/07/2017 Comp Metabolic Zbv721 B/C Ratio 18.9 Ratio 07/07/2017 Comp Metabolic Zku761 CALCIUM 8.9 mg/dL 07/07/2017 Comp Metabolic Oay167 ALK PHOS 51 U/L 07/07/2017 Comp Metabolic Fzx489 AST(SGOT) 11 U/L 07/07/2017 Comp Metabolic Xjj203 ALT(SGPT) 11 U/L 07/07/2017 Comp Metabolic Uuk683 BILI T 0.3 mg/dL 07/07/2017 Comp Metabolic Ydj855 ALBUMIN 4.2 g/dL 07/07/2017 Comp Metabolic Efh301 TPRO 6.0 g/dL 07/07/2017 Comp Metabolic Ole173 GLOB 1.8 g/dL 07/07/2017 Comp Metabolic Fph375 A/G Ratio 2.3 Ratio 07/07/2017 Comp Metabolic Kvq991 Osmo 292 mOsmo 07/07/2017 Digoxin Ord9 DIGOXIN 1.3 NG/ML 07/07/2017 Tsh Ord6 TSH (3rd IS) 2.19 uIU/mL 07/07/2017 B Type Natriuretic Peptide Aqj1383 B-STITCHER AROUND 801.00 pg/ml 2017 Culture Urine [id number] URINE CULTURE SEE NOTES 04/19/2017 Culture Urine [id number] Continued Results 04/19/2017 Urine Culture Ucult Complete >100,000 col/ml aerobic growth sent to ref lab 04/16/2017 Comp Metabolic Lce522 NA 140 mEq/L 01/26/2017 Comp Metabolic Yht420 K 4.6 mEq/L 01/26/2017 Comp Metabolic Abz555 CL 102 mEq/L 01/26/2017 Comp Metabolic Naf439 CO2 28.0 mEq/L 01/26/2017 Comp Metabolic Cmg850 ANION GAP 15 01/26/2017 Comp Metabolic Pix782 GLUCOSE 173 mg/dL 01/26/2017 Comp Metabolic Qlt940 Creat 1.0 mg/dL 01/26/2017 Comp Metabolic Kwc197 eGFR 56 ml/min/1.73m2 01/26/2017 Comp Metabolic Muo670 BUN 23 mg/dL 01/26/2017 Comp Metabolic Rwj670 B/C Ratio 22.5 Ratio 01/26/2017 Comp Metabolic Zae882 CALCIUM 9.4 mg/dL 01/26/2017 Comp Metabolic Pau389 ALK PHOS 52 U/L 01/26/2017 Comp Metabolic Dpo437 AST(SGOT) 12 U/L 01/26/2017 Comp Metabolic Kvh818 ALT(SGPT) 12 U/L 01/26/2017 Comp Metabolic Lvm420 BILI T 0.5 mg/dL 01/26/2017 Comp Metabolic Ejz945 ALBUMIN 4.4 g/dL 01/26/2017 Comp Metabolic Amd264 TPRO 6.5 g/dL 01/26/2017 Comp Metabolic Btl954 GLOB 2.1 g/dL 01/26/2017 Comp Metabolic Ntt122 A/G Ratio 2.1 Ratio 01/26/2017 Comp Metabolic Bex486 Osmo 287 mOsmo 01/26/2017 Cbc With Differential Ord2 WBC 7.40 K/ul 01/26/2017 Cbc With Differential Ord2 RBC 4.32 M/ul 01/26/2017 Cbc With Differential Ord2 HGB 12.6 g/dl 01/26/2017 Cbc With Differential Ord2 HCT 38.3 % 01/26/2017 Cbc With Differential Ord2 Neut% 69.9 % 01/26/2017 Cbc With Differential Ord2 MCV 88.7 fl 01/26/2017 Cbc With Differential Ord2 Lymph% 23.6 % 01/26/2017 Cbc With Differential Ord2 MCH 29.2 pg 01/26/2017 Cbc With Differential Ord2 Gregory% 4.9 % 01/26/2017 Cbc With Differential Ord2 MCHC 32.9 pg 01/26/2017 Cbc With Differential Ord2 Eos% 1.1 % 01/26/2017 Cbc With Differential Ord2 Baso% 0.5 % 01/26/2017 Cbc With Differential Ord2 PLT 345 K/ul 01/26/2017 Cbc With Differential Ord2 RDW 14.3 % 01/26/2017 Cbc With Differential Ord2 Neut ABS# 5.17 K/ul 01/26/2017 Cbc With Differential Ord2 Lymph ABS# 1.75 K/ul 01/26/2017 Cbc With Differential Ord2 Gregory ABS# 0.4 K/ul 01/26/2017 Cbc With Differential Ord2 Eos ABS# 0.1 K/ul 01/26/2017 Cbc With Differential Ord2 Baso ABS# 0.0 K/ul 01/26/2017 %Hba1C Iws522 % HbA1c 16962-3 7.8 % 01/26/2017 %Hba1C Vyi693 Gluc Ave 177 mg/dL 01/26/2017 Lipid Ord30 CHOL 239 mg/dL 01/26/2017 Lipid Ord30 HDL 40.0 mg/dl 01/26/2017 Lipid Ord30 TRIG 325 mg/dL 01/26/2017 Lipid Ord30 LDL 134 mg/dL 01/26/2017 Lipid Ord30 C/HDL 6.0 Ratio 01/26/2017 Free T4 Fmz071 FREE T4 0.95 ng/dL 01/26/2017 Tsh Ord6 [...] Metabolic Ord15 CALCIUM 9.0 mg/dL 09/08/2016 %Hba1C Sfu681 % HbA1c 13150-6 7.5 % 09/08/2016 %Hba1C Had972 Gluc Ave 169 mg/dL 09/08/2016 Tsh Ord6 hTSH II 2.64 uIU/mL 03/13/2016 %Hba1C Pkr923 % HbA1c 52672-2 8.2 % 03/13/2016 %Hba1C Ppx117 Gluc Ave 189 mg/dL 03/13/2016 Lipid Ord30 CHOL 233 mg/dL 03/13/2016 Lipid Ord30 HDL 46.0 mg/dl 03/13/2016 Lipid Ord30 TRIG 276 mg/dL 03/13/2016 Lipid Ord30 LDL 132 mg/dL 03/13/2016 Lipid Ord30 C/HDL 5.1 Ratio 03/13/2016 Free T4 Mca491 FREE T4 0.94 ng/dL 03/13/2016 Cbc With Differential Ord2 WBC 5.53 K/ul 03/13/2016 Cbc With Differential Ord2 RBC 4.19 M/ul 03/13/2016 Cbc With Differential Ord2 HGB 12.7 g/dl 03/13/2016 Cbc With Differential Ord2 HCT 38.3 % 03/13/2016 Cbc With Differential Ord2 Neut% 62.1 % 03/13/2016 Cbc With Differential Ord2 Lymph% 29.5 % 03/13/2016 Cbc With Differential Ord2 MCV 91.4 fl 03/13/2016 Cbc With Differential Ord2 MCH 30.3 pg 03/13/2016 Cbc With Differential Ord2 Gregory% 6.1 % 03/13/2016 Cbc With Differential Ord2 MCHC 33.2 pg 03/13/2016 Cbc With Differential Ord2 Eos% 1.8 % 03/13/2016 Cbc With Differential Ord2 Baso% 0.5 % 03/13/2016 Cbc With Differential Ord2 PLT 304 K/ul 03/13/2016 Cbc With Differential Ord2 RDW 14.4 % 03/13/2016 Cbc With Differential Ord2 Neut ABS# 3.43 K/ul 03/13/2016 Cbc With Differential Ord2 Lymph ABS# 1.63 K/ul 03/13/2016 Cbc With Differential Ord2 Gregory ABS# 0.3 K/ul 03/13/2016 Cbc With Differential Ord2 Eos ABS# 0.1 K/ul 03/13/2016 Cbc With Differential Ord2 Baso ABS# 0.0 K/ul 03/13/2016 Comp Metabolic Mph511 NA 139 mEq/L 03/13/2016 Comp Metabolic Pko034 K 4.3 mEq/L 03/13/2016 Comp Metabolic Whw618 CL 103 mEq/L 03/13/2016 Comp Metabolic Juu926 CO2 28.0 mEq/L 03/13/2016 Comp Metabolic Ahr603 ANION GAP 12 03/13/2016 Comp Metabolic Kph928 GLUCOSE 200 mg/dL 03/13/2016 Comp Metabolic Wvi154 Creat 0.9 mg/dL 03/13/2016 Comp Metabolic Rqm872 eGFR 69 ml/min/1.73m2 03/13/2016 Comp Metabolic Pha220 BUN 19 mg/dL 03/13/2016 Comp Metabolic Wto700 B/C Ratio 22.4 Ratio 03/13/2016 Comp Metabolic Rej033 CALCIUM 9.0 mg/dL 03/13/2016 Comp Metabolic Erb515 ALK PHOS 57 U/L 03/13/2016 Comp Metabolic Pci977 AST(SGOT) 13 U/L 03/13/2016 Comp Metabolic Pek850 ALT(SGPT) 16 U/L 03/13/2016 Comp Metabolic Aba141 BILI T 0.4 mg/dL 03/13/2016 Comp Metabolic Ual006 ALBUMIN 4.2 g/dL 03/13/2016 Comp Metabolic Wdt107 TPRO 6.3 g/dL 03/13/2016 Comp Metabolic Pxt627 GLOB 2.1 g/dL 03/13/2016 Comp Metabolic Nrs844 A/G Ratio 2.0 Ratio 03/13/2016 Comp Metabolic Zhl426 Osmo 285 mOsmo 03/13/2016 %Hba1C Cru360 % HbA1c 80421-0 8.3 % 11/14/2015 %Hba1C Qlh875 Gluc Ave 192 mg/dL 11/14/2015 Lipid Ord30 CHOL 210 mg/dL 07/19/2015 Lipid Ord30 HDL 43.0 mg/dl 07/19/2015 Lipid Ord30 TRIG 311 mg/dL 07/19/2015 Lipid Ord30 LDL 105 mg/dL 07/19/2015 Lipid Ord30 C/HDL 4.9 Ratio 07/19/2015 %Hba1C Tnj594 % HbA1c 37454-3 7.6 % 07/19/2015 %Hba1C Tet472 Gluc Ave 171 mg/dL 07/19/2015 Cbc With Differential Ord2 WBC 5.38 K/ul 07/19/2015 Cbc With Differential Ord2 RBC 4.82 M/ul 07/19/2015 Cbc With Differential Ord2 HGB 13.9 g/dl 07/19/2015 Cbc With Differential Ord2 Neut% 61.9 % 07/19/2015 Cbc With Differential Ord2 HCT 42.2 % 07/19/2015 Cbc With Differential Ord2 MCV 87.6 fl 07/19/2015 Cbc With Differential Ord2 Lymph% 30.3 % 07/19/2015 Cbc With Differential Ord2 MCH 28.8 pg 07/19/2015 Cbc With Differential Ord2 Gregory% 6.1 % 07/19/2015 Cbc With Differential Ord2 MCHC 32.9 pg 07/19/2015 Cbc With Differential Ord2 Eos% 1.3 % 07/19/2015 Cbc With Differential Ord2 PLT 304 K/ul 07/19/2015 Cbc With Differential Ord2 Baso% 0.4 % 07/19/2015 Cbc With Differential Ord2 RDW 14.6 % 07/19/2015 Cbc With Differential Ord2 Neut ABS# 3.33 K/ul 07/19/2015 Cbc With Differential Ord2 Lymph ABS# 1.63 K/ul 07/19/2015 Cbc With Differential Ord2 Gregory ABS# 0.3 K/ul 07/19/2015 Cbc With Differential Ord2 Eos ABS# 0.1 K/ul 07/19/2015 Cbc With Differential Ord2 Baso ABS# 0.0 K/ul 07/19/2015 Cbc With Differential Ord2 New Analyzer Notice Please note new ref ranges starting 03-27-2015 due to implemntation of new five part differential hematolgy analyzer. 07/19/2015 Comp Metabolic Prj958 NA 138 mEq/L 07/19/2015 Comp Metabolic Spz956 K 4.3 mEq/L 07/19/2015 Comp Metabolic Uyw518 CL 100 mEq/L 07/19/2015 Comp Metabolic Dls157 CO2 33.0 mEq/L 07/19/2015 Comp Metabolic Yqx820 ANION GAP 9 07/19/2015 Comp Metabolic Hoj190 GLUCOSE 149 mg/dL 07/19/2015 Comp Metabolic Vbv826 Creat 0.9 mg/dL 07/19/2015 Comp Metabolic Prn033 eGFR 62 ml/min/1.73m2 07/19/2015 Comp Metabolic Xzc501 BUN 19 mg/dL 07/19/2015 Comp Metabolic Uyj381 B/C Ratio 20.2 Ratio 07/19/2015 Comp Metabolic Jie120 CALCIUM 9.5 mg/dL 07/19/2015 Comp Metabolic Eur037 ALK PHOS 52 U/L 07/19/2015 Comp Metabolic Eds926 AST(SGOT) 15 U/L 07/19/2015 Comp Metabolic Slc971 ALT(SGPT) 14 U/L 07/19/2015 Comp Metabolic Byw258 BILI T 0.5 mg/dL 07/19/2015 Comp Metabolic Vqh853 ALBUMIN 4.4 g/dL 07/19/2015 Comp Metabolic Tiq745 TPRO 6.4 g/dL 07/19/2015 Comp Metabolic Qhy345 GLOB 2.0 g/dL 07/19/2015 Comp Metabolic Xbl455 A/G Ratio 2.2 Ratio 07/19/2015 Comp Metabolic Axn111 Osmo 281 mOsmo 07/19/2015 Free T4 Zbj971 FREE T4 0.92 ng/dL 07/19/2015 Tsh Ord6 hTSH II 1.95 uIU/mL 07/19/2015 Microalbumin Nts422 MicroAlb 0.4 mg/dL 07/19/2015 Comp Metabolic Ouf102 NA 137 mEq/L 12/04/2014 Comp Metabolic Oxs933 K 4.0 mEq/L 12/04/2014 Comp Metabolic Ooq140 CL 100 mEq/L 12/04/2014 Comp Metabolic Faw619 CO2 29.0 mEq/L 12/04/2014 Comp Metabolic Wny731 ANION GAP 12 12/04/2014 Comp Metabolic Try548 GLUCOSE 171 mg/dL 12/04/2014 Comp Metabolic Beu614 Creat 1.0 mg/dL 12/04/2014 Comp Metabolic Uup454 eGFR 60 ml/min/1.73m2 12/04/2014 Comp Metabolic Dai082 BUN 25 mg/dL 12/04/2014 Comp Metabolic Zza821 B/C Ratio 25.8 Ratio 12/04/2014 Comp Metabolic Axp068 CALCIUM 9.4 mg/dL 12/04/2014 Comp Metabolic Dek721 ALK PHOS 60 U/L 12/04/2014 Comp Metabolic Aqp468 AST(SGOT) 13 U/L 12/04/2014 Comp Metabolic Vgm545 ALT(SGPT) 17 U/L 12/04/2014 Comp Metabolic Acm817 BILI T 0.4 mg/dL 12/04/2014 Comp Metabolic Uky221 ALBUMIN 4.4 g/dL 12/04/2014 Comp Metabolic Abq288 TPRO 6.9 g/dL 12/04/2014 Comp Metabolic Eaj421 GLOB 2.5 g/dL 12/04/2014 Comp Metabolic Rfp955 A/G Ratio 1.8 Ratio 12/04/2014 Comp Metabolic Cap872 Osmo 282 mOsmo 12/04/2014 Tsh Ord6 hTSH II 1.78 uIU/mL 12/04/2014 %Hba1C Rjt119 % HbA1c 40246-8 8.3 % 12/04/2014 %Hba1C Unb290 Gluc Ave 192 mg/dL 12/04/2014 Free T4 Rxx983 FREE T4 0.85 ng/dL 12/04/2014 Lipid Ord30 [...] nourished 05/12/2017 None Full Exam - General 1995 Eyes conjunctiva /eyelids Overall: conjunctiva clear 05/12/2017 None Full Exam - General 1994 Eyes conjunctiva /eyelids Overall: cornea clear 05/12/2017 None Full Exam - General 1994 Eyes conjunctiva /eyelids Overall: eyelids normal 05/12/2017 None Full Exam - General 1994 Constitutional general appearance Hygiene/Attention to Grooming: good hygiene 05/12/2017 None Full Exam - General 1994 Eyes pupils and irises Overall: pupils equal, round, reactive to light and accomodation 05/12/2017 None Full Exam - General 1995 Ears/Nose/Throat lips/teeth/gingiva Overall: benign lips 05/12/2017 None Full Exam - General 1995 Ears/Nose/Throat [...] accomodation 04/15/2017 None Full Exam - General 1995 Ears/Nose/Throat otoscopic exam Overall: external auditory canals clear 04/15/2017 None Full Exam - General 1995 Ears/Nose/Throat otoscopic exam Overall: tympanic membranes clear [...] General 1994 Ears/Nose/Throat lips/teeth/gingiva Overall: benign lips 04/16/2016 None [...] Date GLUC MONITOR CONT PHYS I&R CPT-4: 98914 10/26/2017 GLUCOSE MONITORING CONT CPT-4: 70207 10/11/2017 URINALYSIS NONAUTO W/O SCOPE CPT-4: 38206 04/15/2017 FLU VAC NO PRSV 4 ANAEBLLE 3 YRS+ CPT-4: 76847 12/17/2016 ADMIN INFLUENZA VIRUS VAC CPT-4: G0008 12/17/2016 FLU VACC PRSV FREE INC ANTIG Formatting Model/CDA Sections, Assigned to/Nery Daniels CPT-4: [id number] 11/14/2015 ADMIN INFLUENZA VIRUS VAC CPT-4: G0008 11/14/2015 ADMIN INFLUENZA VIRUS VAC Formatting Model/CDA Sections, Assigned to/Nery Daniels CPT-4: [id number] 12/04/2014 FLU VACC 4 ANABELLE 3 YRS PLUS IM SNOMED CT: [id number] CPT-4: 12640 12/04/2014 Vital Signs Date Vital 10/26/2017 Blood Pressure 1: 156/74 Code : 8480-6 BMI: 31.2 Code : 34003-6 Heart Rate 1 : 71 bpm Height: 5' SpO2: 98% Weight: 160 lbs 10/11/2017 Blood Pressure 1: 128/70 Code : 8480-6 BMI: 30.9 Code : 73194-3 Heart Rate 1 : 70 bpm Height: 5' SpO2: 95% Weight: 158 lbs 09/22/2017 Blood Pressure 1: 110/52 Code : 8480-6 BMI: 30.9 Code : 05351-6 Heart Rate 1 : 72 bpm Height: 5' SpO2: 99% Weight: 158 lbs 07/06/2017 Blood Pressure 1: 120/85 Code : 8480-6 BMI: 31.4 Code : 94554-8 Heart Rate 1 : 74 bpm Height: 5' SpO2: 92% Weight: 161 lbs 06/03/2017 Blood Pressure 1: 120/62 Code : 8480-6 BMI: 31.1 Code : 34024-0 Heart Rate 1 : 73 bpm Height: 5' SpO2: 99% Weight: 159 lbs 05/12/2017 Blood Pressure 1: 132/68 Code : 8480-6 BMI: 32.4 Code : 28892-8 Heart Rate 1 : 95 bpm Height: 5' SpO2: 97% Weight: 166 lbs 04/15/2017 Blood Pressure 1: 128/84 Code : 8480-6 BMI: 32.4 Code : 30310-7 Heart Rate 1 : 62 bpm Height: 5' SpO2: 97% Weight: 166 lbs 03/19/2017 Blood Pressure 1: 112/60 Code : 8480-6 BMI: 32.0 Code : 20333-6 Height: 5' Weight: 164 lbs 02/03/2017 Blood Pressure 1: 128/76 Code : 8480-6 BMI: 33.4 Code : 27620-7 Heart Rate 1 : 91 bpm Height: 5' SpO2: 99% Weight: 171 lbs 01/07/2017 Blood Pressure 1: 126/74 Code : 8480-6 BMI: 34.2 Code : 24776-3 Heart Rate 1 : 83 bpm Height: 5' SpO2: 97% Weight: 175 lbs 12/17/2016 Blood Pressure 1: 122/72 Code : 8480-6 BMI: 34.0 Code : 97964-8 Heart Rate 1 : 78 bpm Height: 5' SpO2: 97% Weight: 174 lbs 09/14/2016 Blood Pressure 1: 128/86 Code : 8480-6 BMI: 33.8 Code : 88581-9 Heart Rate 1 : 88 bpm Height: 5' SpO2: 96% Weight: 173 lbs 06/18/2016 Blood Pressure 1: 122/74 Code : 8480-6 BMI: 34.8 Code : 55514-5 Heart Rate 1 : 78 bpm Height: 5' SpO2: 98% Weight: 178 lbs 04/16/2016 Blood Pressure 1: 134/68 Code : 8480-6 BMI: 35.0 Code : 67550-7 Heart Rate 1 : 67 bpm Height: 5' SpO2: 97% Weight: 179 lbs 03/19/2016 Blood Pressure 1: 132/74 Code : 8480-6 BMI: 34.6 Code : 89292-2 Heart Rate 1 : 74 bpm Height: 5' SpO2: 97% Weight: 177 lbs 11/14/2015 Blood Pressure 1: 132/70 Code : 8480-6 BMI: 35.2 Code : 56361-2 Heart Rate 1 : 68 bpm Height: 5' Weight: 180 lbs 08/14/2015 Blood Pressure 1: 122/74 Code : 8480-6 BMI: 33.8 Code : 59603-0 Heart Rate 1 : 73 bpm Height: 5' SpO2: 93% Weight: 173 lbs 07/17/2015 Blood Pressure 1: 138/78 Code : 8480-6 BMI: 34.0 Code : 71549-1 Heart Rate 1 : 85 bpm Height: 5' SpO2: 97% Weight: 174 lbs 03/25/2015 Blood Pressure 1: 130/78 Code : 8480-6 BMI: 33.2 Code : 68759-9 Heart Rate 1 : 77 bpm Height: 5' SpO2: 97% Weight: 170 lbs 12/04/2014 Blood Pressure 1: 120/74 Code : 8480-6 BMI: 35.4 Code : 37742-7 Heart Rate 1 : 67 bpm Height: 5' SpO2: 94% Weight: 181 lbs 5 oz 08/14/2014 Blood Pressure 1: 132/68 Code : 8480-6 BMI: 32.1 Code : 25799-1 Heart Rate 1 : 62 bpm Height: [...] data Encounters Encounter Performer Location Codes Date ([id number]) 23964 EST. PATIENT, LEVEL III Diagnosis: Type 2 diabetes mellitus with hyperglycemia[ICD10: E11.65] [facility] CPT-4: 51443 10/26/2017 ([id number]) Miscellaneous no charge Diagnosis: Type 2 diabetes mellitus with hyperglycemia[ICD10: E11.65] [facility] CPT-4: 00362 10/18/2017 ([id number]) 15186 EST. 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 PATIENT, LEVEL IV Diagnosis: Type 2 diabetes mellitus with hyperglycemia[ICD10: E11.65] Diagnosis: Paroxysmal atrial fibrillation[ICD10: I48.0] Diagnosis: Essential (primary) hypertension[ICD10: I10] Mila Nicole MD, [facility] CPT-4: 01320 07/06/2017 ([id number]) 65409 EST. PATIENT, LEVEL IV Diagnosis: Essential (primary) hypertension[ICD10: I10] Diagnosis: Type 2 diabetes mellitus with hyperglycemia[ICD10: E11.65] Diagnosis: Paroxysmal atrial fibrillation[ICD10: I48.0] Claudia Nicole MD, [facility] CPT-4: 54745 06/03/2017 32700 EST. PATIENT, LEVEL III Diagnosis: Generalized anxiety disorder[ICD10: F41.1] Diagnosis: Major depressive disorder, recurrent, moderate[ICD10: F33.1] Diagnosis: Paroxysmal tachycardia, unspecified[ICD10: I47.9] Gardenia Nicole MD, [facility] CPT-4: 66708 05/12/2017 ([id number]) 22329 EST. PATIENT, LEVEL IV Diagnosis: Essential (primary) hypertension[ICD10: I10] Diagnosis: Cough[ICD10: R05] Diagnosis: Dysuria[ICD10: R30.0] Mila Nicole MD, [facility] CPT-4: 32502 04/15/2017 ([id number]) 03727 EST. PATIENT, LEVEL IV Diagnosis: Type 2 diabetes mellitus with hyperglycemia[ICD10: E11.65] Diagnosis: Essential (primary) hypertension[ICD10: I10] Mila Nicole MD [facility] CPT-4: 37435 03/19/2017 ([id number]) 81178 EST. PATIENT, LEVEL III Diagnosis: Type 2 diabetes mellitus with hyperglycemia[ICD10: E11.65] Mila Nicole MD [facility] CPT-4: 25739 02/03/2017 85704 EST. PATIENT, LEVEL IV Diagnosis: Generalized anxiety disorder[ICD10: F41.1] Diagnosis: Type 2 diabetes mellitus with hyperglycemia[ICD10: E11.65] Diagnosis: Essential (primary) hypertension[ICD10: I10] Gardenia Nicole MD, [facility] CPT-4: 58126 01/07/2017 ([id number]) 84446 EST. PATIENT, LEVEL III Diagnosis: Type 2 diabetes mellitus with hyperglycemia[ICD10: E11.65] Diagnosis: Encounter for immunization[ICD10: Z23] Mila Nicole MD, [facility] CPT-4: 25072 12/17/2016 ([id number]) 07549 EST. PATIENT, LEVEL IV Diagnosis: Type 2 diabetes mellitus with hyperglycemia[ICD10: E11.65] Diagnosis: Essential (primary) hypertension[ICD10: I10] Diagnosis: Major depressive disorder, recurrent, mild[ICD10: F33.0] Mila Nicole MD, [facility] CPT-4: 41697 09/14/2016 ([id number]) 78685 EST. 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 PATIENT, LEVEL IV Diagnosis: Type 2 diabetes mellitus with hyperglycemia[ICD10: E11.65] Diagnosis: Essential (primary) hypertension[ICD10: I10] Mila Nicole MD, [facility] CPT-4: 70407 04/16/2016 ([id number]) 65260 EST. 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 PATIENT, LEVEL IV Diagnosis: Type 2 diabetes mellitus with hyperglycemia[ICD10: E11.65] Diagnosis: Encounter for immunization[ICD10: Z23] Diagnosis: Essential (primary) hypertension[ICD10: I10] Mila Nicole MD, [facility] CPT-4: 48515 11/14/2015 ([id number]) 58387 EST. PATIENT, LEVEL IV Diagnosis: Type 2 diabetes mellitus with hyperglycemia[ICD10: E11.65] Diagnosis: Essential (primary) hypertension[ICD10: I10] Diagnosis: Low back pain[ICD10: M54.5] [facility] CPT- 4: 84991 08/14/2015 ([id number]) 46608 EST. PATIENT, LEVEL IV Diagnosis: Type 2 diabetes mellitus with hyperglycemia[ICD10: E11.65] Diagnosis: Essential (primary) hypertension[ICD10: I10] Diagnosis: Hypothyroidism, unspecified[ICD10: E03.9] Mila Nicole MD, [facility] CPT-4: 95635 07/17/2015 ([id number]) 33306 EST. PATIENT, LEVEL IV Diagnosis: Essential (primary) hypertension[ICD10: I10] Diagnosis: Type 2 diabetes mellitus with hyperglycemia[ICD10: E11.65] Diagnosis: Headache[ICD10: R51] Gardenia Nicole MD, [facility] CPT-4: 12877 03/25/2015 ([id number]) 55792 EST. PATIENT, LEVEL IV Diagnosis: ESSENTIAL HYPERTENSION[ICD9: 401.9] Diagnosis: DIABETES TYPE II[ICD9: 250.00] Diagnosis: Aortic stenosis[ICD9: 424.1] Mila Nicole MD, [facility] CPT- 4: 01632 12/04/2014 ([id number]) OFFICE VISIT, NEW - LEVEL 4 Diagnosis: ESSENTIAL HYPERTENSION[ICD9: 401.9] Diagnosis: Diabetes mellitus out of control[ICD9: 250.02] Mila Nicole MD, [facility] CPT-4: 48479 08/14/2014 Plan of Care Planned Activity Notes Codes Status Date Appointment: Claudia Pruitt WPtel: [address] [place], [place] [phone] (15 min) Moderate 10/26/2017 Patient Education: Patient Medication Summary Completed 10/26/2017 Appointment: Nurse Visit 10/18/2017 Patient Education: Patient Medication Summary Completed 10/18/2017 Appointment: Claudia Pruitt WPtel: [phone] [phone] [place] (30 min) Complex 10/11/2017 Patient Education: Patient Medication Summary Completed 10/11/2017 Patient Education: Patient Medication Summary Completed 09/22/2017 Appointment: Mila Nicole WPtel: [phone] [facility] [place] (15 min) Moderate 09/13/2017 Appointment: Mila Nicole WPtel: [phone] [facility] [place] (15 min) Moderate 09/07/2017 Appointment: Mila Nicole WPtel: [phone] [facility] [place] (15 min) Moderate 07/06/2017 Patient Education: Patient Medication Summary Completed 07/06/2017 Appointment: Mila Nicole WPtel: [phone] [facility] [place] (15 min) Moderate 06/07/2017 Appointment: [facility] [phone] [facility] [phone] [place] (30 min) Complex 06/03/2017 Patient Education: Patient Medication Summary Completed 06/03/2017 Appointment: Garden[facility] Shah [facility] [phone] [facility] [place] [place] ([place] min) Complex 05/12/2017 Patient Education: Patient Medication Summary Completed 05/12/2017 [phone] [place] ([facility] min) Moderate 04/15/2017 Patient Education: Patient Medication Summary Completed 04/15/2017 Appointment: Mila Nicole WPtel: [phone] [facility] [place] (15 min) Moderate 03/19/2017 Patient Education: Patient Medication Summary Completed 03/19/2017 Appointment: Mila Nicole WPtel: [phone] [facility] [place] (15 min) Moderate 02/24/2017 Appointment: [phone] [facility] [place] ([facility] min) Moderate 02/03/2017 Patient Education: Patient Medication Summary Completed 02/03/2017 Patient Education: Obesity Completed 02/03/2017 Appointment: Garden[facility] Shah [facility] [phone] [facility] [place] [place] ([place] min) Complex 01/07/2017 Patient Education: Patient Medication Summary Completed 01/07/2017 Patient Education: Obesity Completed 01/07/2017 Patient Education: Hypertension Completed 01/07/2017 Appointment: Mila Nicole WPtel: [facility] [place] [place] (15 min) Moderate 12/17/2016 Patient Education: Patient Medication Summary Completed 12/17/2016 Patient Education: Obesity Completed 12/17/2016 Appointment: Mila Nicole WPtel: [facility] [place] [place] (15 min) Moderate 12/14/2016 Appointment: [phone] [facility] [place] (15 min) Moderate 09/14/2016 Patient Education: Patient Medication Summary Completed 09/14/2016 Patient Education: Obesity Completed 09/14/2016 Patient Education: Hypertension Completed 09/14/2016 Appointment: Mila Nicole WPtel: [facility] [place] [place] (15 min) Moderate 06/18/2016 Patient Education: Patient Medication Summary Completed 06/18/2016 Patient Education: Obesity Completed 06/18/2016 Patient Education: Hypertension Completed 06/18/2016 Appointment: Mila Nicole WPtel: [facility] [place] [place] (15 min) Moderate 04/16/2016 Patient Education: Patient Medication Summary Completed 04/16/2016 Patient Education: Obesity Completed 04/16/2016 Patient Education: Hypertension Completed 04/16/2016 Appointment: [facility] [phone] [facility] [place] (15 min) Moderate 03/19/2016 Patient Education: Patient Medication Summary Completed 03/19/2016 Patient Education: Obesity Completed 03/19/2016 Patient Education: Hypertension Completed 03/19/2016 Appointment: [facility] [phone] [facility] [place] (15 min) Moderate 11/14/2015 Patient Education: Patient Medication Summary Completed 11/14/2015 Patient Education: Obesity Completed 11/14/2015 Patient Education: Hypertension Completed 11/14/2015 Patient Education: Patient Medication Summary Completed 08/14/2015 Patient Education: Obesity Completed 08/14/2015 Appointment: [facility] [phone] [facility] [place] (15 min) Moderate 07/17/2015 Patient Education: Patient Medication Summary Completed 07/17/2015 Patient Education: Obesity Completed 07/17/2015 Appointment: (30 min) Complex 03/25/2015 Patient Education: Patient Medication Summary Completed 03/25/2015 Patient Education: Hypertension Completed 03/25/2015 Appointment: [facility] [phone] [facility] [place] (15 min) Moderate 01/14/2015 Appointment: [facility] [phone] [facility] (15 min) Moderate 12/04/2014 Patient Education: Patient Medication Summary Completed 12/04/2014 Patient Education: Hypertension Completed 12/04/2014 Appointment: [facility] [phone] [facility] [place] (S[facility] New Patient 08/14/2014 Patient Education: Patient Medication Summary Completed 08/14/2014 Patient Education: Hypertension Completed 08/14/2014 Instructions No Instructions
--- OUTSIDE RECORDS SUMMARY | 2017-12-02 03:41 | XMS REPORT | CCD ---
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 Name Role Phone PP Unavailable CCM Unavailable Summary Purpose Interface Exchange Insurance Providers Payer name Policy type / Coverage type Covered green party ID Effective Begin Date Effective End Date WPS Medicare Part B Medicare Part B [id number] Unknown AARP Medicare Part B [id number] Unknown Family history Mother Diagnosis Age At [...] Unknown 3 08/14/[address]: 737779546 Never smoker 08/14/[address]: 118551375 Never drinks alcohol 08/14/2014 Allergies, Adverse Reactions, Alerts Substance Reaction Codes Entered Date Inactivated Date Status * OTHER REACTION - SEE ANSWER BOX Invokana, Victoza Unknown 07/2017 No Inactive Date Active Paxil has blurred vision RxNorm: 679390 08/14/2014 No Inactive Date Active Lipitor RxNorm: 63144 08/14/2014 No Inactive Date Active Past Medical [...] Insulin 100 unit/mL (3 mL) subcutaneous RxNorm: 7975379 18 Unit(s) SQ daily 10/26/201704/23 Active UPDATE RX levothyroxine 50 mcg tablet RxNorm: 264857 TAKE 1 TABLET BY MOUTH ONCE DAILY 10/15/2017 06/11/2018 Active Generic For:SYNTHROID 50MCG TAB 10/15/2017 9:59:00 AM escitalopram 10 mg tablet RxNorm: 937481 1 Tablet(s) PO QPM 01/201809/16/2018 Active Generic For:LEXAPRO 5MG 01/07/2017 9:05:43 AM Basaglar KwikPen U-100 Insulin 100 unit/mL (3 mL) subcutaneous RxNorm: 2941007 15 Unit(s) SQ daily 09/22/201710/25 Inactive potassium chloride ER 20 mEq tablet,extended release RxNorm: 059559 1 Tablet(s) PO daily 06/22/2017 01/17/2018 Active Lantus Solostar U-100 Insulin 100 unit/mL (3 mL) subcutaneous pen RxNorm: 877757 10 Unit(s) SQ daily 06/08/2017 Inactive Basaglar KwikPen U-100 Insulin 100 unit/mL (3 mL) subcutaneous RxNorm: 5338292 10 Unit(s) SQ daily 06/08/201706/07 Inactive Basaglar KwikPen U-100 Insulin 100 unit/mL (3 mL) subcutaneous RxNorm: 1621519 10 Unit(s) SQ daily 06/08/201709/21 Inactive Lexapro 5 mg tablet RxNorm: 110766 1 Tablet(s) PO daily 201711/27/2017 Active Lexapro 5 mg tablet RxNorm: 753361 1 Tablet(s) PO daily 201705/31/2017 Inactive bisoprolol 5 mg-hydrochlorothiazide 6.25 mg tablet RxNorm: 936954 1 Tablet(s) PO BID 05/04/2017 06/02/2017 Inactive Keflex 500 mg capsule RxNorm: 831750 1 Capsule(s) PO QID 201704/21/2017 Inactive Lantus Solostar 100 unit/mL (3 mL) subcutaneous insulin pen RxNorm: 813838 10 Unit(s) SQ daily 02/03/2017 06/07/2017 Inactive levothyroxine 50 mcg tablet RxNorm: 320358 TAKE 1 TABLET BY MOUTH ONCE DAILY 02/01/2017 09/28/2017 Inactive Generic For:SYNTHROID 50MCG TAB 02/01/2017 9:20:59 AM gabapentin 600 mg tablet RxNorm: 630439 1 Capsule(s) PO TID 01/21/2018 Active Lexapro 5 mg tablet RxNorm: 706899 TAKE 1 TABLET BY MOUTH AT BEDTIME 01/07/2017 09/21/2017 Inactive Generic For:LEXAPRO 5MG 01/07/2017 9:05:43 AM Victoza 2-Dariusz 0.6 mg/0.1 mL (18 mg/3 mL) subcutaneous pen injector RxNorm: 340677 1.8 Milligram(s) SQ daily 12/17/201602/07 Inactive Victoza 3-Dariusz 0.6 mg/0.1 mL (18 mg/3 mL) subcutaneous pen injector RxNorm: 988240 Milligram(s) SQ 12/17/2016 02/07/2017 Inactive Zetia 10 mg tablet RxNorm: 881261 1 Tablet(s) PO daily 201611/11/2017 Active fluticasone 50 mcg/actuation nasal spray,suspension RxNorm: 6104425 [place] NASAL ONE SPRAY IN EACH NOSTRIL TWICE DAILY 09/28/2016 04/25/2017 Inactive Victoza 2-Dariusz 0.6 mg/0.1 mL (18 mg/3 mL) subcutaneous pen injector RxNorm: 142149 1.2 Milligram(s) SQ daily 09/14/201612/16 Inactive Lexapro 5 mg tablet RxNorm: 656110 1 Tablet(s) PO QHS 201612/12/2016 Inactive metformin 500 mg tablet RxNorm: 785106 1 Tablet(s) PO UD 1.5 in morning, noon and 1 at bedtime 09/08/2016 09/02/2017 Inactive glimepiride 4 mg tablet RxNorm: 790191 TAKE 1 TABLET BY MOUTH ONCE DAILY 07/31/2016 09/13/2016 Inactive Generic For:*AMARYL 4MG 07/31/2016 9:02:38 AM Victoza 2-Dariusz 0.6 mg/0.1 mL (18 mg/3 mL) subcutaneous pen injector RxNorm: 083876 1.2 Milligram(s) SQ daily 05/18/201609/13 Inactive Victoza 2-Dariusz 0.6 mg/0.1 mL (18 mg/3 mL) subcutaneous pen injector RxNorm: 082067 1.2 Milligram(s) SQ daily 04/16/201605/17 Inactive levothyroxine 50 mcg tablet RxNorm: 902336 TAKE 1 TABLET BY MOUTH ONCE DAILY 04/08/2016 12/03/2016 Inactive Generic For:SYNTHROID 50MCG TAB 04/08/2016 9:05:40 AM levothyroxine 50 mcg tablet RxNorm: 093696 1 Tablet(s) PO daily TAKE 1 TABLET BY MOUTH ONCE DAILY 04/08/2016 12/03/2016 Inactive Generic For:SYNTHROID 50MCG TAB N O T I C E PRESCRIPTION PREVIOUSLY AUTHORIZED BY DOCTOR:HENRY BAIG [phone] bisoprolol 5 mg-hydrochlorothiazide 6.25 mg tablet RxNorm: 326753 1 Tablet(s) PO BID 03/23/2016 03/17/2017 Inactive Victoza 2-Dariusz 0.6 mg/0.1 mL (18 mg/3 mL) subcutaneous pen injector RxNorm: 881337 0.6 Milligram(s) SQ daily 03/19/201604/15 Inactive Lexapro 5 mg tablet RxNorm: 234307 1 Tablet(s) PO QHS 201606/16/2016 Inactive gabapentin 600 mg tablet RxNorm: 901967 1 Capsule(s) PO TID 07/201601/26/2017 Inactive glimepiride 4 mg tablet RxNorm: 907179 1 Tablet(s) PO daily 06/05/2016 Inactive Victoza 3-Dariusz 0.6 mg/0.1 mL (18 mg/3 mL) subcutaneous pen injector RxNorm: 708498 0.6 Milligram(s) SQ daily x2 weeks, then 1.2 mg SQ daily 03/18/2016 Inactive metformin 500 mg tablet RxNorm: 941374 1 Tablet(s) PO UD 1.5 in morning, noon and 1 at bedtime 08/14/2015 08/07/2016 Inactive gabapentin 600 mg tablet RxNorm: 221631 1 Capsule(s) PO TID SHE IS ONLY TAKING 1 QD 08/14/2015 03/18/2016 Inactive fluticasone 50 mcg/actuation nasal spray,suspension RxNorm: 297365 [place] NASAL ONE SPRAY IN EACH NOSTRIL TWICE DAILY 07/26/2015 07/25/2015 Inactive fluticasone 50 mcg/actuation nasal spray,suspension RxNorm: 1198647 [place] NASAL ONE SPRAY IN EACH NOSTRIL TWICE DAILY 07/26/2015 02/20/2016 Inactive bisoprolol 5 mg-hydrochlorothiazide 6.25 mg tablet RxNorm: 054023 1 Tablet(s) PO daily 1 Tablet(s) PO BID 07/17/20152015 Inactive metformin 500 mg tablet RxNorm: 149252 1 Tablet(s) PO TID 1 Tablet(s) PO TID 07/17/2015 08/13/2015 Inactive Diflucan 100 mg tablet RxNorm: 195286 1 Tablet(s) PO daily 06/201507/21/2015 Inactive Zetia 10 mg tablet RxNorm: 268907 1 Tablet(s) PO daily 201506/03/2016 Inactive bisoprolol 5 mg-hydrochlorothiazide 6.25 mg tablet RxNorm: 292200 1 Tablet(s) PO BID 04/18/2015 07/16/2015 Inactive metformin 500 mg tablet RxNorm: 900261 1 Tablet(s) PO TID 03/0106/28/2015 Inactive glimepiride 4 mg tablet RxNorm: 980850 1 Tablet(s) PO daily 01/30/2015 Inactive levothyroxine 50 mcg tablet RxNorm: 307354 TAKE 1 TABLET BY MOUTH ONCE DAILY 01/31/2015 09/27/2015 Inactive Generic For:SYNTHROID 50MCG TAB N O T I C E PRESCRIPTION PREVIOUSLY AUTHORIZED BY DOCTOR:HENRY BAIG glimepiride 4 mg tablet RxNorm: 320474 1 Tablet(s) PO daily 07/29/2015 Inactive Invokana 100 mg tablet RxNorm: 1026760 1 Tablet(s) PO daily 07/16/2015 Inactive bisoprolol 5 mg-hydrochlorothiazide 6.25 mg tablet RxNorm: 060842 1 Tablet(s) PO BID 08/27/2014 02/22/2015 Inactive metformin 500 mg tablet RxNorm: 822310 1 Tablet(s) PO TID 08/1012/07/2014 Inactive metformin 500 mg tablet RxNorm: 887321 1 Tablet(s) PO TID 08/1008/09/2014 Inactive Eliquis 5 mg tablet RxNorm: 1664508 1 Tablet(s) PO BID No Start Date Active Fish Oil 1,000 mg capsule RxNorm: 1 Capsule(s) PO daily No Start Date Active Protonix 40 mg tablet,delayed release RxNorm: 330609 1 Tablet(s) PO QAM No Start Date Active furosemide 40 mg tablet RxNorm: 107606 1 Tablet(s) PO daily No Start Date Active digoxin 250 mcg tablet RxNorm: 915744 1 Tablet(s) PO daily No Start Date Active pen needle, diabetic 31 gauge x 1/6" RxNorm: Miscellaneous No Start Date Active Effient 10 mg tablet RxNorm: 834422 1 Tablet(s) PO QAM No Start Date Active metoprolol succinate ER 100 mg tablet,extended release 24 hr RxNorm: 247211 1 Tablet(s) PO daily No Start Date Active nitroglycerin 0.4 mg sublingual tablet RxNorm: 728156 1 Tablet(s) SL as needed chest pain No Start Date Active Entresto 24 mg-26 mg tablet RxNorm: 8109693 1 Tablet(s) PO BID No Start Date Active aspirin 81 mg chewable tablet RxNorm: 046624 1 Tablet(s) PO daily No Start Date 06/02/2017 Inactive bisoprolol-hydrochlorothiazide oral RxNorm: 35573 oral No Start Date 08/26/2014 Inactive levothyroxine 50 mcg tablet RxNorm: 042029 1 Tablet(s) PO daily No Start Date 01/30/2015 Inactive potassium chloride ER 20 mEq tablet,extended release RxNorm: 436601 1 Tablet(s) PO daily No Start Date 06/21/2017 Inactive Invokana 100 mg tablet RxNorm: 9865290 1 Tablet(s) PO daily No Start Date 12/11/2014 Inactive Victoza 3-Dariusz 0.6 mg/0.1 mL (18 mg/3 mL) subcutaneous pen injector RxNorm: 991443 0.6 Milligram(s) SQ daily x2 weeks, then 1.2 mg SQ daily No Start Date 12/01/2015 Inactive Zetia 10 mg tablet RxNorm: 310539 1 Tablet(s) PO BID No Start Date 03/18/2016 Inactive gabapentin 300 mg capsule RxNorm: 019436 1 Capsule(s) PO BID No Start Date 08/13/2015 Inactive Lasix 40 mg tablet RxNorm: 769282 1 Tablet(s) PO BID No Start Date 04/14/2017 Inactive Coreg 3.125 mg tablet RxNorm: 445699 1 Tablet(s) PO BID with meals No [...] 04/15/2017 stress test and then shipped to [facility] Follow Up 03/19/2017 stress test and then shipped to [place] diabetes mellitus 02/03/2017 headache 01/07/2017 diabetes mellitus 12/17/2016 diabetes mellitus 09/14/2016 diabetes mellitus 06/18/2016 medication follow up 04/16/2016 back pain 03/19/2016 back pain 11/14/2015 back pain 08/14/2015 diabetes mellitus 07/17/2015 Hospital Follow Up 03/25/2015 diabetes mellitus 12/04/2014 diabetes mellitus 08/14/2014 Results Observation Observation Code Item Item Code Result Date Test(s) Not Perfromed [id number] Test(s) Not Performed Test(s) Not Performed. See Below: 09/20/2017 Test(s) Not Perfromed [id number] TEST NAME BNP 09/20/2017 Test(s) Not Perfromed [id number] Rejection Reason Patient Refused due to lack of coving diganosis 09/20/2017 Test(s) Not Perfromed [id number] COMMENT Dorita Notified 09/20 Test(s) Not Perfromed BWD7035 Bilingual Patient Support Caseworker Miguel Mclaughlin 2017 B Type Natriuretic Peptide Azc4119 B-CLINICAL NURSING INSTRUCTOR 889.00 pg/ml 2017 Cbc With Differential Ord2 [...] 28.9 pg 09/20/2017 Cbc With Differential Ord2 [place]% 5.6 % 09/20/2017 Cbc With Differential Ord2 [...] 1.68 K/ul 09/20/2017 Cbc With Differential Ord2 [place] ABS# 0.3 K/ul 09/20/2017 Cbc With Differential Ord2 Eos ABS# 0.1 K/ul 09/20/2017 Cbc With Differential Ord2 Baso ABS# 0.0 K/ul 09/20/2017 %Hba1C Bej405 % HbA1c 14918-3 7.9 % 09/20/2017 %Hba1C Rwk754 Gluc Ave 180 mg/dL 09/20/2017 Magnesium Ord90 [...] 88.5 fl 07/07/2017 Cbc With Differential Ord2 [place]% 7.9 % 07/07/2017 Cbc With Differential Ord2 [...] 1.34 K/ul 07/07/2017 Cbc With Differential Ord2 [place] ABS# 0.4 K/ul 07/07/2017 Cbc With Differential Ord2 Eos ABS# 0.1 K/ul 07/07/2017 Cbc With Differential Ord2 Baso ABS# 0.0 K/ul 07/07/2017 Comp Metabolic Gss790 NA 142 mEq/L 07/07/2017 Comp Metabolic Let976 K 4.3 mEq/L 07/07/2017 Comp Metabolic Xol533 CL 105 mEq/L 07/07/2017 Comp Metabolic Zjs189 CO2 28.0 mEq/L 07/07/2017 Comp Metabolic Zmz826 ANION GAP 13 07/07/2017 Comp Metabolic Qbn450 GLUCOSE 197 mg/dL 07/07/2017 Comp Metabolic Tmp969 Creat 1.1 mg/dL 07/07/2017 Comp Metabolic Ldp473 eGFR 51 ml/min/1.73m2 07/07/2017 Comp Metabolic Qwj049 BUN 21 mg/dL 07/07/2017 Comp Metabolic Ifw596 B/C Ratio 18.9 Ratio 07/07/2017 Comp Metabolic Not744 CALCIUM 8.9 mg/dL 07/07/2017 Comp Metabolic Zzk252 ALK PHOS 51 U/L 07/07/2017 Comp Metabolic Pnb135 AST(SGOT) 11 U/L 07/07/2017 Comp Metabolic Guz891 ALT(SGPT) 11 U/L 07/07/2017 Comp Metabolic Yix888 BILI T 0.3 mg/dL 07/07/2017 Comp Metabolic Rvl732 ALBUMIN 4.2 g/dL 07/07/2017 Comp Metabolic Qff469 TPRO 6.0 g/dL 07/07/2017 Comp Metabolic Map573 GLOB 1.8 g/dL 07/07/2017 Comp Metabolic Wqx082 A/G Ratio 2.3 Ratio 07/07/2017 Comp Metabolic Xpt974 Osmo 292 mOsmo 07/07/2017 Digoxin Ord9 DIGOXIN 1.3 NG/ML 07/07/2017 Tsh Ord6 TSH (3rd IS) 2.19 uIU/mL 07/07/2017 B Type Natriuretic Peptide Tao8351 B-CLINICAL NURSING INSTRUCTOR 801.00 pg/ml 2017 Culture Urine [id number] URINE CULTURE SEE NOTES 04/19/2017 Culture Urine [id number] Continued Results 04/19/2017 Urine Culture Ucult Complete >100,000 col/ml aerobic growth sent to ref lab 04/16/2017 Comp Metabolic Qfr815 NA 140 mEq/L 01/26/2017 Comp Metabolic Nzs219 K 4.6 mEq/L 01/26/2017 Comp Metabolic Mlr894 CL 102 mEq/L 01/26/2017 Comp Metabolic Ors118 CO2 28.0 mEq/L 01/26/2017 Comp Metabolic Bqv919 ANION GAP 15 01/26/2017 Comp Metabolic Vjr902 GLUCOSE 173 mg/dL 01/26/2017 Comp Metabolic Lqh656 Creat 1.0 mg/dL 01/26/2017 Comp Metabolic Okp143 eGFR 56 ml/min/1.73m2 01/26/2017 Comp Metabolic Diq215 BUN 23 mg/dL 01/26/2017 Comp Metabolic Dnt349 B/C Ratio 22.5 Ratio 01/26/2017 Comp Metabolic Wzy901 CALCIUM 9.4 mg/dL 01/26/2017 Comp Metabolic Tje922 ALK PHOS 52 U/L 01/26/2017 Comp Metabolic Blh271 AST(SGOT) 12 U/L 01/26/2017 Comp Metabolic Cdo897 ALT(SGPT) 12 U/L 01/26/2017 Comp Metabolic Kdp281 BILI T 0.5 mg/dL 01/26/2017 Comp Metabolic Qty885 ALBUMIN 4.4 g/dL 01/26/2017 Comp Metabolic Igf752 TPRO 6.5 g/dL 01/26/2017 Comp Metabolic Qfx140 GLOB 2.1 g/dL 01/26/2017 Comp Metabolic Qsa012 A/G Ratio 2.1 Ratio 01/26/2017 Comp Metabolic Xjk957 Osmo 287 mOsmo 01/26/2017 Cbc With Differential [...] 29.2 pg 01/26/2017 Cbc With Differential Ord2 [place]% 4.9 % 01/26/2017 Cbc With Differential Ord2 [...] 1.75 K/ul 01/26/2017 Cbc With Differential Ord2 [place] ABS# 0.4 K/ul 01/26/2017 Cbc With Differential Ord2 Eos ABS# 0.1 K/ul 01/26/2017 Cbc With Differential Ord2 Baso ABS# 0.0 K/ul 01/26/2017 %Hba1C Qei061 % HbA1c 63878-1 7.8 % 01/26/2017 %Hba1C Ayt335 Gluc Ave 177 mg/dL 01/26/2017 Lipid Ord30 CHOL 239 mg/dL 01/26/2017 Lipid Ord30 HDL 40.0 mg/dl 01/26/2017 Lipid Ord30 TRIG 325 mg/dL 01/26/2017 Lipid Ord30 LDL 134 mg/dL 01/26/2017 Lipid Ord30 C/HDL 6.0 Ratio 01/26/2017 Free T4 Ihp426 FREE T4 0.95 ng/dL 01/26/2017 Tsh Ord6 [...] Metabolic Ord15 CALCIUM 9.0 mg/dL 09/08/2016 %Hba1C Xyb569 % HbA1c 66050-9 7.5 % 09/08/2016 %Hba1C Nvp299 Gluc Ave 169 mg/dL 09/08/2016 Tsh Ord6 hTSH II 2.64 uIU/mL 03/13/2016 %Hba1C Ttf729 % HbA1c 62963-3 8.2 % 03/13/2016 %Hba1C Ewu046 Gluc Ave 189 mg/dL 03/13/2016 Lipid Ord30 CHOL 233 mg/dL 03/13/2016 Lipid Ord30 HDL 46.0 mg/dl 03/13/2016 Lipid Ord30 TRIG 276 mg/dL 03/13/2016 Lipid Ord30 LDL 132 mg/dL 03/13/2016 Lipid Ord30 C/HDL 5.1 Ratio 03/13/2016 Free T4 Ptf911 FREE T4 0.94 ng/dL 03/13/2016 Cbc With [...] 30.3 pg 03/13/2016 Cbc With Differential Ord2 [place]% 6.1 % 03/13/2016 Cbc With Differential Ord2 [...] 1.63 K/ul 03/13/2016 Cbc With Differential Ord2 [place] ABS# 0.3 K/ul 03/13/2016 Cbc With Differential Ord2 Eos ABS# 0.1 K/ul 03/13/2016 Cbc With Differential Ord2 Baso ABS# 0.0 K/ul 03/13/2016 Comp Metabolic Jin562 NA 139 mEq/L 03/13/2016 Comp Metabolic Lfd914 K 4.3 mEq/L 03/13/2016 Comp Metabolic Pzx069 CL 103 mEq/L 03/13/2016 Comp Metabolic Fbq993 CO2 28.0 mEq/L 03/13/2016 Comp Metabolic Snx777 ANION GAP 12 03/13/2016 Comp Metabolic Asj567 GLUCOSE 200 mg/dL 03/13/2016 Comp Metabolic Lms007 Creat 0.9 mg/dL 03/13/2016 Comp Metabolic Pzx284 eGFR 69 ml/min/1.73m2 03/13/2016 Comp Metabolic Xai809 BUN 19 mg/dL 03/13/2016 Comp Metabolic Eba339 B/C Ratio 22.4 Ratio 03/13/2016 Comp Metabolic Fdq999 CALCIUM 9.0 mg/dL 03/13/2016 Comp Metabolic Dsq065 ALK PHOS 57 U/L 03/13/2016 Comp Metabolic Uic906 AST(SGOT) 13 U/L 03/13/2016 Comp Metabolic Tdn572 ALT(SGPT) 16 U/L 03/13/2016 Comp Metabolic Ygr909 BILI T 0.4 mg/dL 03/13/2016 Comp Metabolic Iuh525 ALBUMIN 4.2 g/dL 03/13/2016 Comp Metabolic Ria904 TPRO 6.3 g/dL 03/13/2016 Comp Metabolic Wby549 GLOB 2.1 g/dL 03/13/2016 Comp Metabolic Bez885 A/G Ratio 2.0 Ratio 03/13/2016 Comp Metabolic Dgi460 Osmo 285 mOsmo 03/13/2016 %Hba1C Prn906 % HbA1c 19740-3 8.3 % 11/14/2015 %Hba1C Wfm134 Gluc Ave 192 mg/dL 11/14/2015 Lipid Ord30 CHOL 210 mg/dL 07/19/2015 Lipid Ord30 HDL 43.0 mg/dl 07/19/2015 Lipid Ord30 TRIG 311 mg/dL 07/19/2015 Lipid Ord30 LDL 105 mg/dL 07/19/2015 Lipid Ord30 C/HDL 4.9 Ratio 07/19/2015 %Hba1C Hbt607 % HbA1c 54415-7 7.6 % 07/19/2015 %Hba1C Dei404 Gluc Ave 171 mg/dL 07/19/2015 Cbc With Differential Ord2 WBC 5.38 K/ul 07/19/2015 Cbc With Differential Ord2 RBC 4.82 M/ul 07/19/2015 Cbc With Differential Ord2 HGB 13.9 g/dl 07/19/2015 Cbc With Differential Ord2 HCT 42.2 % 07/19/2015 Cbc With Differential Ord2 Neut% 61.9 % 07/19/2015 Cbc With Differential Ord2 MCV 87.6 fl 07/19/2015 Cbc With Differential Ord2 Lymph% 30.3 % 07/19/2015 Cbc With Differential Ord2 MCH 28.8 pg 07/19/2015 Cbc With Differential Ord2 [place]% 6.1 % 07/19/2015 Cbc With Differential Ord2 MCHC 32.9 pg 07/19/2015 Cbc With Differential Ord2 Eos% 1.3 % 07/19/2015 Cbc With Differential Ord2 Baso% 0.4 % 07/19/2015 Cbc With Differential Ord2 PLT 304 K/ul 07/19/2015 Cbc With Differential Ord2 Neut ABS# 3.33 K/ul 07/19/2015 Cbc With Differential Ord2 RDW 14.6 % 07/19/2015 Cbc With Differential Ord2 Lymph ABS# 1.63 K/ul 07/19/2015 Cbc With Differential Ord2 [place] ABS# 0.3 K/ul 07/19/2015 Cbc With Differential Ord2 Eos ABS# 0.1 K/ul 07/19/2015 Cbc With Differential Ord2 Baso ABS# 0.0 K/ul 07/19/2015 Cbc With Differential Ord2 New Analyzer Notice Please note new ref ranges starting 03-27-2015 due to implemntation of new five part differential hematolgy analyzer. 07/19/2015 Comp Metabolic Uhs077 NA 138 mEq/L 07/19/2015 Comp Metabolic Fcu116 K 4.3 mEq/L 07/19/2015 Comp Metabolic Har261 CL 100 mEq/L 07/19/2015 Comp Metabolic Trp391 CO2 33.0 mEq/L 07/19/2015 Comp Metabolic Zxz622 ANION GAP 9 07/19/2015 Comp Metabolic Hyu395 GLUCOSE 149 mg/dL 07/19/2015 Comp Metabolic Tks197 Creat 0.9 mg/dL 07/19/2015 Comp Metabolic Oap912 eGFR 62 ml/min/1.73m2 07/19/2015 Comp Metabolic Fws354 BUN 19 mg/dL 07/19/2015 Comp Metabolic Eqe261 B/C Ratio 20.2 Ratio 07/19/2015 Comp Metabolic Sbf438 CALCIUM 9.5 mg/dL 07/19/2015 Comp Metabolic Aro064 ALK PHOS 52 U/L 07/19/2015 Comp Metabolic Fyd011 AST(SGOT) 15 U/L 07/19/2015 Comp Metabolic Skm673 ALT(SGPT) 14 U/L 07/19/2015 Comp Metabolic Sys887 BILI T 0.5 mg/dL 07/19/2015 Comp Metabolic Ipl906 ALBUMIN 4.4 g/dL 07/19/2015 Comp Metabolic Yow093 TPRO 6.4 g/dL 07/19/2015 Comp Metabolic Kfo479 GLOB 2.0 g/dL 07/19/2015 Comp Metabolic Vci254 A/G Ratio 2.2 Ratio 07/19/2015 Comp Metabolic Wba301 Osmo 281 mOsmo 07/19/2015 Free T4 Jgl564 FREE T4 0.92 ng/dL 07/19/2015 Tsh Ord6 hTSH II 1.95 uIU/mL 07/19/2015 Microalbumin Awl602 MicroAlb 0.4 mg/dL 07/19/2015 Comp Metabolic Vju433 NA 137 mEq/L 12/04/2014 Comp Metabolic Gwb358 K 4.0 mEq/L 12/04/2014 Comp Metabolic Deq711 CL 100 mEq/L 12/04/2014 Comp Metabolic Aqk989 CO2 29.0 mEq/L 12/04/2014 Comp Metabolic Emp044 ANION GAP 12 12/04/2014 Comp Metabolic Vph499 GLUCOSE 171 mg/dL 12/04/2014 Comp Metabolic Iuv084 Creat 1.0 mg/dL 12/04/2014 Comp Metabolic Xkn910 eGFR 60 ml/min/1.73m2 12/04/2014 Comp Metabolic Zvn964 BUN 25 mg/dL 12/04/2014 Comp Metabolic Bvd564 B/C Ratio 25.8 Ratio 12/04/2014 Comp Metabolic Fls226 CALCIUM 9.4 mg/dL 12/04/2014 Comp Metabolic Ksa391 ALK PHOS 60 U/L 12/04/2014 Comp Metabolic Vcw796 AST(SGOT) 13 U/L 12/04/2014 Comp Metabolic Qyq236 ALT(SGPT) 17 U/L 12/04/2014 Comp Metabolic Jxf717 BILI T 0.4 mg/dL 12/04/2014 Comp Metabolic Mvc508 ALBUMIN 4.4 g/dL 12/04/2014 Comp Metabolic Ike034 TPRO 6.9 g/dL 12/04/2014 Comp Metabolic Wus325 GLOB 2.5 g/dL 12/04/2014 Comp Metabolic Zjj512 A/G Ratio 1.8 Ratio 12/04/2014 Comp Metabolic Tqo914 Osmo 282 mOsmo 12/04/2014 Tsh Ord6 hTSH II 1.78 uIU/mL 12/04/2014 %Hba1C Fau125 % HbA1c 77836-3 8.3 % 12/04/2014 %Hba1C Aco146 Gluc Ave 192 mg/dL 12/04/2014 Free T4 Smy680 FREE T4 0.85 ng/dL 12/04/2014 Lipid Ord30 [...] Date GLUC MONITOR CONT PHYS I&R CPT-4: 07408 10/26/2017 GLUCOSE MONITORING CONT CPT-4: 52703 10/11/2017 URINALYSIS NONAUTO W/O SCOPE CPT-4: 89665 04/15/2017 FLU VAC NO PRSV 4 ANABELLE 3 YRS+ CPT-4: 97229 12/17/2016 ADMIN INFLUENZA VIRUS VAC CPT-4: G0008 12/17/2016 FLU VACC PRSV FREE INC ANTIG Formatting Model/CDA Sections, Assigned to/Nery Daniels CPT-4: 31383Umgkfhq 11/14/2015 ADMIN INFLUENZA VIRUS VAC CPT-4: G0008 11/14/2015 ADMIN INFLUENZA VIRUS VAC Formatting Model/CDA Sections, Assigned to/Nery Daniels CPT-4: E0893Sqbnyvv 12/04/2014 FLU VACC 4 ANABELLE 3 YRS PLUS IM SNOMED CT: [id number] CPT-4: 50318 12/04/2014 Vital Signs Date Vital 10/26/2017 Blood Pressure 1: 156/74 Code : 8480-6 BMI: 31.2 Code : 48891-1 Heart Rate 1 : 71 bpm Height: 5' SpO2: 98% Weight: 160 lbs 10/11/2017 Blood Pressure 1: 128/70 Code : 8480-6 BMI: 30.9 Code : 79158-2 Heart Rate 1 : 70 bpm Height: 5' SpO2: 95% Weight: 158 lbs 09/22/2017 Blood Pressure 1: 110/52 Code : 8480-6 BMI: 30.9 Code : 44554-2 Heart Rate 1 : 72 bpm Height: 5' SpO2: 99% Weight: 158 lbs 07/06/2017 Blood Pressure 1: 120/85 Code : 8480-6 BMI: 31.4 Code : 34545-7 Heart Rate 1 : 74 bpm Height: 5' SpO2: 92% Weight: 161 lbs 06/03/2017 Blood Pressure 1: 120/62 Code : 8480-6 BMI: 31.1 Code : 79554-6 Heart Rate 1 : 73 bpm Height: 5' SpO2: 99% Weight: 159 lbs 05/12/2017 Blood Pressure 1: 132/68 Code : 8480-6 BMI: 32.4 Code : 08392-0 Heart Rate 1 : 95 bpm Height: 5' SpO2: 97% Weight: 166 lbs 04/15/2017 Blood Pressure 1: 128/84 Code : 8480-6 BMI: 32.4 Code : 53099-5 Heart Rate 1 : 62 bpm Height: 5' SpO2: 97% Weight: 166 lbs 03/19/2017 Blood Pressure 1: 112/60 Code : 8480-6 BMI: 32.0 Code : 52045-2 Height: 5' Weight: 164 lbs 02/03/2017 Blood Pressure 1: 128/76 Code : 8480-6 BMI: 33.4 Code : 08712-9 Heart Rate 1 : 91 bpm Height: 5' SpO2: 99% Weight: 171 lbs 01/07/2017 Blood Pressure 1: 126/74 Code : 8480-6 BMI: 34.2 Code : 94236-5 Heart Rate 1 : 83 bpm Height: 5' SpO2: 97% Weight: 175 lbs 12/17/2016 Blood Pressure 1: 122/72 Code : 8480-6 BMI: 34.0 Code : 69538-0 Heart Rate 1 : 78 bpm Height: 5' SpO2: 97% Weight: 174 lbs 09/14/2016 Blood Pressure 1: 128/86 Code : 8480-6 BMI: 33.8 Code : 37506-8 Heart Rate 1 : 88 bpm Height: 5' SpO2: 96% Weight: 173 lbs 06/18/2016 Blood Pressure 1: 122/74 Code : 8480-6 BMI: 34.8 Code : 93303-3 Heart Rate 1 : 78 bpm Height: 5' SpO2: 98% Weight: 178 lbs 04/16/2016 Blood Pressure 1: 134/68 Code : 8480-6 BMI: 35.0 Code : 36657-4 Heart Rate 1 : 67 bpm Height: 5' SpO2: 97% Weight: 179 lbs 03/19/2016 Blood Pressure 1: 132/74 Code : 8480-6 BMI: 34.6 Code : 96697-9 Heart Rate 1 : 74 bpm Height: 5' SpO2: 97% Weight: 177 lbs 11/14/2015 Blood Pressure 1: 132/70 Code : 8480-6 BMI: 35.2 Code : 90102-2 Heart Rate 1 : 68 bpm Height: 5' Weight: 180 lbs 08/14/2015 Blood Pressure 1: 122/74 Code : 8480-6 BMI: 33.8 Code : 38209-1 Heart Rate 1 : 73 bpm Height: 5' SpO2: 93% Weight: 173 lbs 07/17/2015 Blood Pressure 1: 138/78 Code : 8480-6 BMI: 34.0 Code : 72200-2 Heart Rate 1 : 85 bpm Height: 5' SpO2: 97% Weight: 174 lbs 03/25/2015 Blood Pressure 1: 130/78 Code : 8480-6 BMI: 33.2 Code : 98849-9 Heart Rate 1 : 77 bpm Height: 5' SpO2: 97% Weight: 170 lbs 12/04/2014 Blood Pressure 1: 120/74 Code : 8480-6 BMI: 35.4 Code : 71704-1 Heart Rate 1 : 67 bpm Height: 5' SpO2: 94% Weight: 181 lbs 5 oz 08/14/2014 Blood Pressure 1: 132/68 Code : 8480-6 BMI: 32.1 Code : 82659-6 Heart Rate 1 : 62 bpm Height: [...] data Encounters Encounter Performer Location Codes Date ([id number]) [id number] EST. PATIENT, LEVEL III Diagnosis: Type 2 diabetes mellitus with hyperglycemia[ICD10: E11.65] [facility] CPT-4: 57457 10/26/2017 ([id number]) Miscellaneous no charge Diagnosis: Type 2 diabetes mellitus with hyperglycemia[ICD10: E11.65] [facility] CPT-4: 56930 10/18/2017 ([id number]) [id number] EST. PATIENT, LEVEL IV Diagnosis: Type 2 diabetes mellitus with diabetic autonomic (poly)neuropathy[ ICD10: E11.43] Diagnosis: Essential (primary) hypertension[ICD10: I10] Mila Nicole MD [facility] CPT-4: 78174 09/22/2017 ([id number]) [id number] EST. PATIENT, LEVEL IV Diagnosis: Type 2 diabetes mellitus with hyperglycemia[ICD10: E11.65] Diagnosis: Paroxysmal atrial fibrillation[ICD10: I48.0] Diagnosis: Essential (primary) hypertension[ICD10: I10] Mila Nicole MD, [facility] CPT-4: 13979 07/06/2017 ([id number]) [id number] EST. PATIENT, LEVEL IV Diagnosis: Essential (primary) hypertension[ICD10: I10] Diagnosis: Type 2 diabetes mellitus with hyperglycemia[ICD10: E11.65] Diagnosis: Paroxysmal atrial fibrillation[ICD10: I48.0] Claudia Nicole MD, [facility] CPT-4: 68332 06/03/2017 [id number] EST. PATIENT, LEVEL III Diagnosis: Generalized anxiety disorder[ICD10: F41.1] Diagnosis: Major depressive disorder, recurrent, moderate[ICD10: F33.1] Diagnosis: Paroxysmal tachycardia, unspecified[ICD10: I47.9] Gardenia Nicole MD, [facility] CPT-4: 62971 05/12/2017 ([id number]) 10067 EST. PATIENT, LEVEL IV Diagnosis: Essential (primary) hypertension[ICD10: I10] Diagnosis: Cough[ICD10: R05] Diagnosis: Dysuria[ICD10: R30.0] Mila Nicole MD, [facility] CPT-4: 46094 04/15/2017 ([id number]) 28231 EST. PATIENT, LEVEL IV Diagnosis: Type 2 diabetes mellitus with hyperglycemia[ICD10: E11.65] Diagnosis: Essential (primary) hypertension[ICD10: I10] Mila Nicole MD [facility] CPT-4: 72877 03/19/2017 ([id number]) 62458 EST. PATIENT, LEVEL III Diagnosis: Type 2 diabetes mellitus with hyperglycemia[ICD10: E11.65] Mila Nicole MD [facility] CPT-4: 73578 02/03/2017 39825 EST. PATIENT, LEVEL IV Diagnosis: Generalized anxiety disorder[ICD10: F41.1] Diagnosis: Type 2 diabetes mellitus with hyperglycemia[ICD10: E11.65] Diagnosis: Essential (primary) hypertension[ICD10: I10] Gardenia Nicole MD, [facility] CPT-4: 67708 01/07/2017 ([id number]) 77023 EST. PATIENT, LEVEL III Diagnosis: Type 2 diabetes mellitus with hyperglycemia[ICD10: E11.65] Diagnosis: Encounter for immunization[ICD10: Z23] Mila Nicole MD, [facility] CPT-4: 66899 12/17/2016 ([id number]) 78622 EST. PATIENT, LEVEL IV Diagnosis: Type 2 diabetes mellitus with hyperglycemia[ICD10: E11.65] Diagnosis: Essential (primary) hypertension[ICD10: I10] Diagnosis: Major depressive disorder, recurrent, mild[ICD10: F33.0] Mila Nicole MD, [facility] CPT-4: 89688 09/14/2016 ([id number]) 44847 EST. 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 PATIENT, LEVEL IV Diagnosis: Type 2 diabetes mellitus with hyperglycemia[ICD10: E11.65] Diagnosis: Essential (primary) hypertension[ICD10: I10] Mila Nicole MD, [facility] CPT-4: 82861 04/16/2016 ([id number]) 85097 EST. 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 PATIENT, LEVEL IV Diagnosis: Type 2 diabetes mellitus with hyperglycemia[ICD10: E11.65] Diagnosis: Encounter for immunization[ICD10: Z23] Diagnosis: Essential (primary) hypertension[ICD10: I10] Mila Nicole MD, [facility] CPT-4: 10310 11/14/2015 ([id number]) 92849 EST. PATIENT, LEVEL IV Diagnosis: Type 2 diabetes mellitus with hyperglycemia[ICD10: E11.65] Diagnosis: Essential (primary) hypertension[ICD10: I10] Diagnosis: Low back pain[ICD10: M54.5] Mila Nicole MD, [facility] CPT- 4: 36118 08/14/2015 ([id number]) 97953 EST. PATIENT, LEVEL IV Diagnosis: Type 2 diabetes mellitus with hyperglycemia[ICD10: E11.65] Diagnosis: Essential (primary) hypertension[ICD10: I10] Diagnosis: Hypothyroidism, unspecified[ICD10: E03.9] Mila Nicole MD, [facility] CPT-4: 69809 07/17/2015 ([id number]) 73953 EST. PATIENT, LEVEL IV Diagnosis: Essential (primary) hypertension[ICD10: I10] Diagnosis: Type 2 diabetes mellitus with hyperglycemia[ICD10: E11.65] Diagnosis: Headache[ICD10: R51] Gardenia Nicole MD, [facility] CPT-4: 11809 03/25/2015 ([id number]) 79235 EST. PATIENT, LEVEL IV Diagnosis: ESSENTIAL HYPERTENSION[ICD9: 401.9] Diagnosis: DIABETES TYPE II[ICD9: 250.00] Diagnosis: Aortic stenosis[ICD9: 424.1] Mila Nicole MD, [facility] CPT- 4: 74934 12/04/2014 ([id number]) OFFICE VISIT, NEW - LEVEL 4 Diagnosis: ESSENTIAL HYPERTENSION[ICD9: 401.9] Diagnosis: Diabetes mellitus out of control[ICD9: 250.02] Mila Nicole MD, [facility] CPT-4: 78488 08/14/2014 Plan of Care Planned Activity Notes [...] log of blood sugars to appt. 10/26/2017 Patient Education: Patient Medication Summary Completed [...] plan. 10/11/2017 Appointment: [facility] Pruitt [phone] [place] (30 min) Complex 10/11/2017 Patient Education: [...] Summary Completed 09/22/2017 [phone] [place] (15 min) Moderate 09/13/2017 Appointment: [phone] [place] (15 min) Moderate 09/07/2017 Visit Plan: Diabetes [...] uncontrolled. 07/06/2017 Appointment: Mila Nicole WPtel: [phone] [facility] (15 min) Moderate 07/06/2017 Patient Education: Patient Medication Summary Completed 07/06/2017 Appointment: Mila Nicole WPtel: [phone] [facility] (15 min) Moderate 06/07/2017 Visit Plan: [...] less controlled. 06/03/2017 Appointment: Claudia Pruitt WPtel: [phone] [facility] [place] (30 min) Complex 06/03/2017 Patient Education: [...] treatment plan 05/12/2017 Appointment: Gardenia Shah [facility]: [phone] [place] (30 min) Complex 05/12/2017 Patient Education: Patient [...] Entresto medication. 04/15/2017 Appointment: [phone] (15 min) Moderate 04/15/2017 Patient Education: Patient [...] units daily. 03/19/2017 Appointment: Mila Nicole WPtel: [phone] [facility] (15 min) Moderate 03/19/2017 Patient Education: Patient Medication Summary Completed 03/19/2017 Appointment: Mila Nicole [facility]Ptel: [facility] (15 min) Moderate 02/24/2017 Visit Plan: Diabetes [...] at HS 02/03/2017 Appointment: Mila Nicole WPtel: [phone] [facility] (15 min) Moderate 02/03/2017 Patient Education: Patient [...] acute concerns. 01/07/2017 Appointment: Gardenia Shah WPtel: [facility] [place] (30 min) Complex 01/07/2017 Patient Education: Patient [...] to allow for greater blood glucose control. [id number], 02/2018 junior nordisk 12/17/2016 Appointment: Mila Nicole WPtel: [facility] [place] (15 min) Moderate 12/17/2016 Patient Education: Patient Medication Summary Completed 12/17/2016 Patient Education: Obesity Completed 12/17/2016 Appointment: Mila Nicole WPtel: [address] [place], [place] [address] [place] (15 min) Moderate 12/14/2016 Visit Plan: Diabetes [...] medications. 09/14/2016 Appointment: Mila Nicole WPtel: [phone] [facility] (15 min) Moderate 09/14/2016 Patient Education: [...] pressure readings at home. 06/18/2016 Appointment: [facility]el: [phone] [place] (15 min) Moderate 06/18/2016 Patient Education: [...] home. 04/16/2016 Appointment: Mila Nicole WPtel: [phone] [facility] (15 min) Moderate 04/16/2016 Patient Education: Patient [...] with gabapentin 03/19/2016 Appointment: [facility]el[phone] (15 min) Moderate 03/19/2016 Patient Education: Patient [...] at home. 11/14/2015 Appointment: Mila Nicole [facility]Ptel: [phone] [facility] [place] (15 min) Moderate 11/14/2015 Patient Education: [...] check Hgba1c 07/17/2015 Appointment: [facility]el: [phone] [place] (15 min) Moderate 07/17/2015 Patient Education: [...] Completed 03/25/2015 Appointment: [facility]Ptel: [phone] [facility] (15 min) Moderate 01/14/2015 Visit Plan: Diabetes [...] of control. 12/04/2014 Appointment: [facility]el[phone] [facility] (15 min) Moderate 12/04/2014 Patient Education: Patient [...] for greater blood glucose control. 08/14/2014 Appointment: CoreyMila [facility]Ptel: [phone] [facility] [place] (S) New Patient 08/14/2014 Patient Education: Patient Medication Summary Completed 08/14/2014 Patient Education: Hypertension Completed 08/14/2014 Instructions Comment . Diabetes Mellitus - controlled - per [...] change in blood pressure readings at home. I think the entresto is causing you [...] not choose to change the Entresto medication. cut back on carbohydrates in food - [...] to allow for greater blood glucose control. [id number], 02/2018 junior nordisk . Hypertension - well controlled - continue [...] start on diflucan treatment - check Hgba1c increase basaglar to 15 units at bedtime [...] in blood pressure readings at home. . Follow up from ED - pt [...] months based on previous levels of control. . Follow up from ED - pt [...] months based on previous levels of control. . DM-patient is here for placement of [...] results. Patient verbalized understanding of plan. . Hypertension - well controlled - continue [...] are starting to become less controlled. . Diabetes Mellitus - controlled - per [...] change in blood pressure readings at home. INCREASE BASAGLAR TO 18 UNITS DAILY increase [...] bring log of blood sugars to appt. On 02/07/17 - stop the Victoza On [...] start on lantus 10 units at HS stop the glimepiride continue with metformin and [...] situational exposure. No change in current medications. Decrease victoza back to your previous dose [...] pt is to call for acute concerns. . Diabetes Mellitus - controlled - per [...] months based on previous levels of control. . Diabetes Mellitus - controlled - per [...] home. Peripheral neuropathy - continue with gabapentin Monitor your blood pressure at home and [...] to allow for greater blood glucose control. . Anxiety - the patient has uncontrolled [...] with any changes in current treatment plan . Diabetes Mellitus - controlled - per [...] pain - gabapentin for back pain. . Hypertension - well controlled - continue [...]
[2017-12-02] MEDS ORDERED: ONDANSETRON 4 MG/2 ML (SDV) Z0FRAN IVP ONE (03:45)
--- OUTSIDE RECORDS SUMMARY | 2017-12-02 03:45 | XMS REPORT | Continuity of Care Document ---
Author Author [facility] Organization [facility] Address Unknown Phone Unavailable Allergies Active Description Code Type Severity Reaction Onset Reported/Identified Relationship to Patient Clinical Status Yes No Known Drug Allergies [id number] Drug Allergy Unknown N/A 12/30/2011 Yes canagliflozin [id number] Drug Allergy Severe LIGHT HEADED/HE 02/18/2017 Yes liraglutide [id number] Drug Allergy Severe RAPID HEART RAT 02/18/2017 Yes Uznbalt-Dyx-Ubt Reductase Inhibitor [id number] Drug Allergy Severe MUSCLE PAIN 02/18/2017 Medications [...] Ot M47.896 OTHER SPONDYLOSIS, LUMBAR REGION 01/04/2015 LATIH BECK MD Ot M51.26 OTHER INTERVERTEBRAL DISC DISPLACEMENT, 01/04/2015 LAITH BECK MD Ot Z79.899 OTHER B2B SALES PROFESSIONAL (CURRENT) DRUG THERAPY 01/09/2015 GALE MENDEZ MD [...] ALI FACP CCDS Ot 424.1 03/23/2015 JOHN LEMSU FACC, ALI FACP CCDS Ot 729.5 03/23/2015 [...] MENDEZ MD Ot 722.52 03/23/2015 ZORAIDA FORMAN GEAR ROOM KEEPER Ot 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 03/23/2015 ZORAIDA FORMAN GEAR ROOM KEEPER Ot N39.0 URINARY TRACT INFECTION, SITE NOT SPECIF 03/23/2015 ZORAIDA FORMAN GEAR ROOM KEEPER Ot R11.0 NAUSEA 04/30/[address] [facility], ALI FACP CCDS Ot I35.0 04/30/[address] [facility], ALI FACP CCDS Ot I65.23 04/30/[address] [facility], ALI FACP CCDS [...] 07/19/2015 LAITH BECK MD, Ot Z79.899 OTHER B2B SALES PROFESSIONAL (CURRENT) DRUG THERAPY 07/29/2015 LAITH BECK MD, Ot M51.16 INTERVERTEBRAL DISC DISORDERS W RADICULO 07/29/2015 LAITH BECK MD, Ot Z53.8 PROCEDURE AND TREATMENT NOT CARRIED OUT 08/08/2015 EVERARDO LEMUS, THOMAS Carvalho Ot I65.23 OCCLUSION AND STENOSIS OF BILATERAL [place] 11/19/2015 BAIMAVINEET L TECHNICAL HEALTHCARE CONSULTANT Ot I35.0 NONRHEUMATIC AORTIC (VALVE) STENOSIS 11/20/2015 BAIMA, VINEET L TECHNICAL HEALTHCARE CONSULTANT Ot I35.0 NONRHEUMATIC AORTIC (VALVE) STENOSIS 11/20/2015 BAIMA, VINEET L TECHNICAL HEALTHCARE CONSULTANT Ot I35.0 NONRHEUMATIC AORTIC (VALVE) STENOSIS 12/12/2015 BAIMA, VINEET L TECHNICAL HEALTHCARE CONSULTANT Ot I35.0 NONRHEUMATIC AORTIC (VALVE) STENOSIS 12/19/2015 BAIMA, VINEET L TECHNICAL HEALTHCARE CONSULTANT Ot I35.0 NONRHEUMATIC AORTIC (VALVE) STENOSIS 12/20/2015 [...] STENOSIS OF [place]ILATERAL [place] 12/20/2015 VINEET DASILVA TECHNICAL HEALTHCARE CONSULTANT Ot I35.0 NONRHEUMATIC AORTIC (VALVE) STENOSIS 12/23/2015 [...] TYPE II OR UNSPEC TY 12/26/2015 JOHN LMEUS FACC, ALI FACP CCDS Ot 424.1 AORTIC [...] DISC DISORDERS W RADICULO 12/27/2015 OPAL BLUE GEAR ROOM KEEPER Ot E11.9 TYPE 2 DIABETES MELLITUS WITHOUT [...] STENOSIS OF BILATERAL [place] 12/27/2015 VINEET DASILVA TECHNICAL HEALTHCARE CONSULTANT Ot I35.0 NONRHEUMATIC AORTIC (VALVE) STENOSIS 12/27/2015 OPAL BLUE APRN Ot E11.9 TYPE 2 DIABETES MELLITUS WITHOUT COMPLIC 12/27/2015 LAITH BECK MD Ot M51.16 INTERVERTEBRAL DISC DISORDERS W RADICULO 01/09/2016 LAITH BECK MD Ot M47.816 SPONDYLOSIS W/O MYELOPATHY OR RADICULOPA 01/09/2016 LAITH BECK MD, Ot M51.16 INTERVERTEBRAL DISC DISORDERS W RADICULO 01/09/2016 LAITH BECK MD Ot Z79.899 OTHER ASSISTED (CURRENT) DRUG THERAPY 01/28/2016 LAITH BECK MD, Ot M47.816 SPONDYLOSIS W/O MYELOPATHY OR RADICULOPA 01/28/2016 LAITH BECK MD, Ot M51.16 INTERVERTEBRAL DISC DISORDERS W RADICULO 01/28/2016 LAITH BECK MD, Ot Z79.899 OTHER ASSISTED (CURRENT) DRUG THERAPY 02/04/2016 OPAL BLUE APRN Ot E11.9 TYPE 2 DIABETES MELLITUS WITHOUT COMPLIC 02/05/2016 LAITH BECK MD, Ot M47.816 SPONDYLOSIS W/O MYELOPATHY OR RADICULOPA 02/05/2016 LAITH BECK MD, Ot M51.16 INTERVERTEBRAL DISC DISORDERS W RADICULO 02/05/2016 LAITH BECK MD Ot Z79.899 OTHER B2B SALES PROFESSIONAL (CURRENT) DRUG THERAPY 03/18/2016 OPAL BLUE GEAR ROOM KEEPER Ot E11.9 TYPE 2 DIABETES MELLITUS WITHOUT COMPLIC 03/25/2016 OPAL BLUE APRN Ot E11.9 TYPE 2 DIABETES MELLITUS WITHOUT COMPLIC 08/31/2016 LAITH BECK MD, Ot M51.16 INTERVERTEBRAL DISC DISORDERS W RADICULO 08/31/2016 LAITH BECK MD, Ot Z79.84 B2B SALES PROFESSIONAL (CURRENT) USE OF ORAL HYPOGLYC 08/31/2016 LAITH BECK MD, Ot Z79.899 OTHER ASSISTED (CURRENT) DRUG THERAPY 09/17/2016 LIATH BECK MD, Ot M51.16 INTERVERTEBRAL DISC DISORDERS W RADICULO 09/17/2016 LAITH BECK MD, Ot Z79.84 B2B SALES PROFESSIONAL (CURRENT) USE OF ORAL HYPOGLYC 09/17/2016 LAITH BECK MD, Ot Z79.899 OTHER ASSISTED (CURRENT) DRUG THERAPY 02/01/2017 DEMARIO LOPEZ MD, [...] STENOSIS OF BILATERAL [place] 02/18/2017 OPAL BLUE GEAR ROOM KEEPER Ot E11.9 TYPE 2 DIABETES MELLITUS WITHOUT [...] MD, Ot I25.10 ATHSCL HEART DISEASE OF [place] CORONARY 02/18/2017 KURTIS DIEGO MD Ot I25.2 [...] SPECIF 02/18/2017 KURTIS DIEGO MD, Ot Z79.84 ASSISTED (CURRENT) USE OF ORAL HYPOGLYC 02/18/2017 KURTIS [...] MD Ot I25.10 ATHSCL HEART DISEASE OF [place] CORONARY 05/25/2017 KURTIS DIEGO MD Ot I25.2 [...] (MODERAT 05/25/2017 KURTIS DIEGO MD Ot Z79.84 B2B SALES PROFESSIONAL (CURRENT) USE OF ORAL HYPOGLYC 05/25/2017 KURTIS [...] MD Ot I25.10 ATHSCL HEART DISEASE OF [place] CORONARY 05/26/2017 KURTIS DIEGO MD Ot I25.2 [...] (MODERAT 05/26/2017 KURTIS DIEGO MD, Ot Z79.84 ASSISTED (CURRENT) USE OF ORAL HYPOGLYC 05/26/2017 KURTIS [...] MD Ot I25.10 ATHSCL HEART DISEASE OF [place] CORONARY 05/26/2017 KURTIS DIEGO MD Ot I25.2 [...] (MODERAT 05/26/2017 KURTIS DIEGO MD Ot Z79.84 ASSISTED (CURRENT) USE OF ORAL HYPOGLYC 05/26/2017 KURTIS [...] Ot Z95.5 PRESENCE OF CORONARY ANGIOPLASTY IMPLANT 08/25/2017 ESDRAS BARROW DOA K Ot E11.9 TYPE 2 DIABETES MELLITUS WITHOUT COMPLIC 08/25/2017 TUNDE BARROW DO K Ot E78.00 PURE HYPERCHOLESTEROLEMIA, UNSPECIFIED 08/25/2017 ESDRAS BARROW DOA K Ot F32.9 MAJOR DEPRESSIVE DISORDER, SINGLE EPISOD 08/25/2017 ESDRAS BARROW DOA K Ot F41.9 ANXIETY DISORDER, UNSPECIFIED 08/25/2017 DANIAL ESDRAS ADAMESA K Ot I25.10 ATHSCL HEART DISEASE OF [place] CORONARY 08/25/2017 DANIAL ESDRAS ADAMESA K Ot M16.12 UNILATERAL PRIMARY OSTEOARTHRITIS, LEFT 08/25/2017 TUNDE BARROW DO K Ot M25.552 PAIN IN LEFT HIP 08/25/2017 DANIAL DO TUNED Casey Ot Z79.4 B2B SALES PROFESSIONAL (CURRENT) USE OF INSULIN 08/25/2017 DANIAL ADAMES TUNDE Casey Ot Z79.51 B2B SALES PROFESSIONAL (CURRENT) USE OF INHALED STERO 08/25/2017 DANIAL DO TUNDE Casey Ot Z88.6 ALLERGY STATUS TO ANALGESIC AGENT STATUS 08/25/2017 DANIAL ADAMES TUNDE Casey Ot Z88.8 ALLERGY STATUS TO OTH DRUG/MEDS/BIOL SUB 08/25/2017 DANIAL ADAMES TUNDE Casey Ot Z90.710 ACQUIRED ABSENCE OF BOTH CERVIX AND UTER 08/25/2017 DANIAL ADAMES TUNDE K Ot Z90.89 ACQUIRED ABSENCE OF OTHER ORGANS 08/25/2017 DANIAL ADAMES TUNDE K Ot Z95.5 PRESENCE OF CORONARY ANGIOPLASTY IMPLANT 08/25/2017 DANIAL ADAMES TUNDE Peña Ot Z98.890 OTHER SPECIFIED POSTPROCEDURAL STATES 08/27/2017 DANIAL ADAMES TUNDE K Ot E11.9 TYPE 2 DIABETES MELLITUS WITHOUT COMPLIC 08/27/2017 DANIAL ADAMES TUNDE K Ot E78.00 PURE HYPERCHOLESTEROLEMIA, UNSPECIFIED 08/27/2017 DANIAL ADAMES TUNDE K Ot F32.9 MAJOR DEPRESSIVE DISORDER, SINGLE EPISOD 08/27/2017 ESDRAS BARROW DOA K Ot F41.9 ANXIETY DISORDER, UNSPECIFIED 08/27/2017 DANIAL ADAMES TUNDE K Ot I25.10 ATHSCL HEART DISEASE OF [place] CORONARY 08/27/2017 DANIAL TUNDE K Ot M16.12 UNILATERAL PRIMARY OSTEOARTHRITIS, LEFT 08/27/2017 TUNDE BARROW DO Ot M25.552 PAIN IN LEFT HIP 08/27/2017 TUNDE BARROW DO Ot Z79.4 ASSISTED (CURRENT) USE OF INSULIN 08/27/2017 TUNDE BARROW DO Ot Z79.51 B2B SALES PROFESSIONAL (CURRENT) USE OF INHALED STERO 08/27/2017 TUNDE BARROW DO Ot Z88.6 ALLERGY STATUS TO ANALGESIC AGENT STATUS 08/27/2017 TUNDE BARROW DO Ot Z88.8 ALLERGY STATUS TO OTH DRUG/MEDS/BIOL SUB 08/27/2017 TUNED BARROW DO Ot Z90.710 ACQUIRED ABSENCE OF BOTH CERVIX AND UTER 08/27/2017 TUNDE BARROW DO Ot Z90.89 ACQUIRED ABSENCE OF OTHER ORGANS 08/27/2017 TUNDE BARROW DO Ot Z95.5 PRESENCE OF CORONARY ANGIOPLASTY IMPLANT 08/27/2017 TUNDE BARROW DO Ot Z98.890 OTHER SPECIFIED POSTPROCEDURAL STATES 09/03/2017 TANA OVIEDO MD Ot Z48.812 ENCNTR FOR SURGICAL AFTCR FOLLOWING SURG 09/03/2017 TANA OVIEDO MD Ot Z95.5 PRESENCE OF CORONARY ANGIOPLASTY IMPLANT 10/12/2017 TANA OVIEDO MD Ot Z48.812 ENCNTR FOR SURGICAL AFTCR FOLLOWING SURG 10/12/2017 TANA OVIEDO MD Ot Z95.5 PRESENCE OF CORONARY ANGIOPLASTY IMPLANT Procedures Code Description Performed By Performed On [id number] MEASURE OF CARDIAC SAMPL PRESSURE, L H 02/18/2017 [id number] FLUOROSCOPY OF MULT COR ART USING L OSM 02/18/2017 [id number] FLUOROSCOPY OF LEFT HEART USING LOW OSMO 02/18/2017 [id number] FLUOROSCOPY OF ABDOMINAL AORTA USING LOW 02/18/2017 [...] culture - 02/18/17 05:32 Bacterial urine culture [id number] NRG COLONY COUNT >100,000/ML NRG FTX;REPORTABLE 3 DIFFERENT COLONY TYPES OBSERVED NRG URINE CULTURE RESULTS PLUS NRG FREE TEXT ENTRY 2 COMBINED SENSITIVITY REPORTED AT 1120, NR FREE TEXT ENTRY 3 02-20-17 [facility] Bacterial susceptibility panel - 02/18/17 05:32 Gentamicin [...] susceptibility test by minimum inhibitory concentration - NRG Methicillin resistant Staphylococcus aureus (MRSA) screening culture [...] Staphylococcus aureus (MRSA) screening culture NEG NRG Capillary blood glucose measurement by glucometer (mass/volume) [...] Status Pt. Type Provider Facility Loc./Unit Complaint [id number] 10/13/2017 08:00:00 10/13/2017 23:59:59 CLS Preadmit IVELISSE LEMUS, TANA Castillo [facility] CR STENT [id number] 10/01/2017 11:22:00 10/12/2017 00:01:00 DIS Outpatient TANA OVIEDO MD [facility] CR STENT [id number] 08/25/2017 05:20:00 08/25/2017 06:42:00 DIS Emergency TUNDE BARROW DO [facility] ER PAIN IN LEFT LEG,NOT SLEEPING [id number] 07/14/2017 08:00:00 07/14/2017 23:59:59 CLS Preadmit TANA OVIEDO MD [facility] CR STENT [id number] 07/09/2017 09:37:00 07/13/2017 00:01:00 DIS Outpatient TANA OVIEDO MD [facility] CR STENT [id number] 05/31/2017 13:00:00 05/31/2017 23:59:59 CLS Preadmit JOHN LEMUS FACC, ALI FACP CCDS [facility] CARD I48.0 PAF [id number] 05/25/2017 04:25:00 05/26/2017 11:10:00 DIS Inpatient KURTIS DIEGO MD [facility] ICU A-FIB RVR, CHEST PAIN, PULMONARY EDEMA [id number] 02/23/2017 09:00:00 02/23/2017 23:59:59 CLS Preadmit DEMARIO LOPEZ MD, FACC FACP CCDS [facility] CATH CAD,DM,ANGINA [id number] 02/18/2017 05:32:00 02/18/2017 14:20:00 DIS Inpatient KURTIS DIEGO MD [facility] ICU ACUTE CHF,CHEST PAIN, RESP DISTRESS [id number] 01/12/2017 07:28:00 01/12/2017 23:59:59 CLS Outpatient JOHN LEMUS FACC, ALI FACP CCDS [facility] CARD I35.0 [id number] 01/08/2017 08:30:00 01/08/2017 23:59:59 CLS Outpatient JOHN LEMUS FACC, ALI FACP CCDS [facility] CARD I35.0 [id number] 08/03/2016 14:01:00 08/03/2016 23:59:59 CLS Outpatient LAITH BECK MD [facility] DISC DISORDER [id number] 03/26/2016 10:00:00 03/26/2016 23:59:59 CLS Preadmit OPAL BLUE APRN [facility] TYPE 2 DIABETES, UNCONTROLLED DIABETES [id number] 12/26/2015 09:46:00 03/25/2016 00:01:00 DIS Outpatient OPAL BLUE APRN [facility] TYPE 2 DIABETES, UNCONTROLLED DIABETES [id number] 12/20/2015 07:57:00 12/20/2015 23:59:59 CLS Outpatient LAITH BECK MD [facility] DISC DISORDER [id number] 11/19/2015 08:55:00 11/19/2015 23:59:59 CLS Outpatient VINEET DASILVA [facility] [id number] 08/09/2015 10:15:00 08/09/2015 23:59:59 CLS Preadmit THOMAS MCGEE MD [facility] DIZZINESS, VISUAL CHANGES SEVERE HEADACHES [id number] 06/03/2015 09:05:00 08/08/2015 00:01:00 DIS Outpatient THOMAS MCGEE MD [facility] DIZZINESS, VISUAL CHANGES SEVERE HEADACHES [id number] 07/19/2015 07:43:00 07/19/2015 08:58:00 DIS Outpatient LAITH BECK MD [facility] DISC DISORDER [id number] 07/15/2015 11:45:00 07/15/2015 13:42:00 DIS Outpatient LAITH BECK MD [facility] DISC DISORDER W/ RADICULOPATHY [id number] 04/01/2015 13:41:00 04/01/2015 23:59:59 CLS Outpatient JOHN LEMUS FACCDEMARIO FACP CCDS [facility] VERITGO [id number] 03/23/2015 12:22:00 03/23/2015 15:00:00 DIS Emergency ZORAIDA FORMAN APRN [facility] ER DIZZINESS/NAUSEA [id number] 01/04/2015 09:15:00 01/04/2015 10:15:00 DIS Outpatient LAITH BECK MD [facility] CARD OTHER INTERVETREBRAL DISC DISPLACEMENT [id number] 11/26/2014 07:35:00 11/26/2014 23:59:59 CLS Outpatient GALE MENDEZ MD [facility] RAD RADICULOPATHY [id number] 11/15/2014 09:11:00 11/15/2014 23:59:59 CLS Outpatient GALE MENDEZ MD [facility] RAD RADICULOPATHY [id number] 06/13/2014 08:56:00 06/13/2014 23:59:59 CLS Outpatient JOHN LEMUS FACC, DEMARIO FACMaia CCDS [facility] RAD BILAT LEG FOOT PAIN, DIABETES [id number] 06/12/2014 08:18:00 06/12/2014 23:59:59 CLS Outpatient JOHN LEMUS FACC, ALI FACP CCDS [facility] CARD CHEST DISCOMFORT, AORTIC STENOSIS [id number] 11/06/2013 09:23:00 11/06/2013 23:59:59 CLS Outpatient HENRY BAIG MD [facility] RAD SCREENING [id number] 06/08/2014 17:37:00 Document Registration [id number] 04/04/2012 15:58:00 Document Registration [id number] 12/30/2011 06:47:00 Document Registration [id number] 08/17/2011 12:51:00 Document Registration [id number] 08/07/2010 12:49:00 Document Registration [id number] 09/21/2017 09:18:00 09/21/2017 23:59:00 DIS Outpatient JAZZ YOUNG [id number] 08/12/2016 08:25:00 08/12/2016 23:59:00 DIS Outpatient JAZZ YOUNG [id number] 07/01/2016 11:16:00 07/01/2016 23:59:00 DIS Outpatient JAZZ YOUNG [id number] 11/26/2014 07:36:38 ACT Document Registration [id number] 01/29/2017 23:15:46 01/29/2017 23:59:59 CLS Outpatient
[2017-12-02 03:57] LABS: BASOPHILS % (AUTO) 0 % (0-10); EOSINOPHILS # (AUTO) 0.1 10^3/uL (0.0-0.3); EOSINOPHILS % (AUTO) 1 % (0-10); HEMATOCRIT 35 % (35-52); HEMOGLOBIN 11.7 G/DL (11.5-16.0); LYMPHOCYTES # (AUTO) 1.1 X 10^3 (1.0-4.0); LYMPHOCYTES % (AUTO) 19 % (12-44); MEAN CORPUSCULAR HEMOGLOBIN 29 PG (25-34); MEAN CORPUSCULAR HGB CONC 34 G/DL (32-36); MEAN CORPUSCULAR VOLUME 87 FL (80-99); MEAN PLATELET VOLUME 9.8 FL (7.4-10.4); MONOCYTES # (AUTO) 0.1 X 10^3 (0.0-1.0); MONOCYTES % (AUTO) 2 % (0-12); NEUTROPHILS # (AUTO) 4.7 X 10^3 (1.8-7.8); NEUTROPHILS % (AUTO) 78 % (42-75); PLATELET COUNT 377 10^3/uL (130-400); RED BLOOD COUNT 4.01 10^6/uL (4.35-5.85); RED CELL DISTRIBUTION WIDTH 13.4 % (10.0-14.5)
[2017-12-02 04:11] LABS: PROTHROMBIN TIME PATIENT 13.5 SEC (12.2-14.7)
--- NOTE | 2017-12-02 04:20 | ED General ---
General Chief Complaint: Respiratory Problems Stated Complaint: COUGHING UP BLOOD Source of Information: Patient, Family Exam Limitations: No Limitations History of Present Illness Date Seen by Provider: Dec 02, 2017 Time Seen by Provider: 03:40 Initial Comments Here with report of coughing up blood since about 1 a.m. States that she's had cough since 2 a.m. that continues. She does have bloody sputum. She reports coughing up blood clots. Reports nausea and vomiting. Has had a little bit of a runny nose. Denies ever having anything like this before. Timing/Duration: 1-3 Hours Severity: Moderate Associated Systoms: No Chest Pain; Cough, Fever/Chills, Nausea/Vomiting, Shortness of Air; No Weakness Allergies and Home Medications Allergies Coded Allergies: canagliflozin (Verified Allergy, Severe, LIGHT HEADED/HEADACHES/UTI/FELT LIKE SHE WOULD PASS OUT, 02/18/17) liraglutide (Verified Allergy, Severe, RAPID HEART RATE/HEADACHE/DIZZINESS , 02/18/17) Bvshbhk-Dqi-Jef Reductase Inhibitor (Verified Adverse Reaction, Severe, MUSCLE PAIN, 02/18/17) Home Medications Acetaminophen/Diphenhydramine 1 Each Tablet, 1 TAB PO HS, (Reported) Apixaban 5 Mg Tablet, 5 MG PO BID, (Reported) Diclofenac Sodium 100 Gm Gel..gram., 100 GM TP TID Prescribed by: TUNDE BARROW on 08/25/17 0636 Digoxin 250 Mcg Tablet, 0.25 MG PO DAILY Prescribed by: KURTIS NICOLE on 05/26/17 0815 Escitalopram Oxalate 5 Mg Tablet, 5 MG PO DAILY, (Reported) Ezetimibe 10 Mg Tablet, 10 MG PO HS, (Reported) Fluticasone Propionate 16 Gm [place].susp, 1 SPRAY NS BID PRN for ALLERGIES, ( Reported) Furosemide 40 Mg Tablet, 40 MG PO DAILY Prescribed by: KURTIS NICOLE on 05/26/17 0815 Gabapentin 600 Mg Tablet, 600 MG PO TID, (Reported) Insulin Glargine,Hum.rec.anlog 100 Unit/1 Ml Insuln.pen, 10 UNIT SQ DAILY, ( Reported) Levothyroxine Sodium 50 Mcg Tablet, 50 MCG PO DAILY, (Reported) Metformin HCl 500 Mg Tablet, 500 MG PO HS, (Reported) Metformin HCl 500 Mg Tablet, 750 MG PO 0700,1200, (Reported) TAKES 1 & /2 (500MG) TABLETS Methylprednisolone 4 Mg Tab.ds.pk, 4 MG PO UD Prescribed by: TUNDE BARROW on 08/25/17635 Metoprolol Succinate 100 Mg Tab.er.24h, 100 MG PO DAILY Prescribed by: KURTIS NICOLE on 05/26/17814 [place] 3 Polyunsat Fatty Acids 1,000 Mg Cap, 1,000 MG PO DAILY, (Reported) Pantoprazole Sodium 40 Mg Tablet.dr, 40 MG PO DAILY, (Reported) Potassium Chloride 20 Meq Tab.er.prt, 20 MEQ PO DAILY@0700 Prescribed by: KURTIS NICOLE on 05/26/17814 Prasugrel HCl 10 Mg Tablet, 10 MG PO DAILY, (Reported) Sacubitril/Valsartan 1 Each Tablet, 1 TAB PO BID, (Reported) Tramadol HCl 50 Mg Tablet, 50 MG PO Q4H Prescribed by: TUNDE BARROW on 08/25/17635 [Nitroglycerin] 0.4 MG BTL, 0 MG SL PRN PRN for CHEST PAIN Prescribed by: KURTIS NICOLE on 05/26/17814 Patient Home Medication List Home Medication List Reviewed: Yes Review of Systems Review of Systems Constitutional: see HPI; No chills; fever EENTM: nose congestion; No throat pain Respiratory: cough, hemoptysis, short of breath Cardiovascular: no symptoms reported Gastrointestinal: No abdominal pain; nausea, vomiting Genitourinary: no symptoms reported Musculoskeletal: no symptoms reported Skin: no symptoms reported All Other Systems Reviewed Negative Unless Noted: Yes Past Ivoppgj-Vtgiyk-Pxzbtk Hx Past Med/Social Hx: Reviewed Nursing Past Med/Soc Hx Patient Social History Alcohol Use: Occasionally Uses Recreational Drug Use: No Smoking Status: Never a Smoker 2nd Hand Smoke Exposure: No Recent Foreign Travel: No Contact w/Someone Who Travel: No Recent Hopitalizations: No Physical Abuse: No Sexual Abuse: No Immunizations Up To Date Tetanus Booster (TDap): Unknown Date of Pneumonia Vaccine: Feb 14, 2018 Date of Influenza Vaccine: Dec 16, 2015 Seasonal Allergies Seasonal Allergies: Yes Past Medical History Surgeries: Yes (bilat TKR, bilat carpal tunnel) Bladder Surgery, Coronary Stent, Hysterectomy, Orthopedic, Tonsillectomy Respiratory: No Cardiac: Yes (aortic stenosis, carotid stenosis, cardiac stent) Coronary Artery Disease, High Cholesterol, Hypertension, Peripheral Vascular, Valvular Heart Disease Neurological: No Genitourinary: Yes UTI-Chronic Gastrointestinal: No Musculoskeletal: No Endocrine: Yes Diabetes, Non-Insulin dep HEENT: No Loss of Vision: Denies Hearing Impairment: Denies Cancer: No Psychosocial: Yes Anxiety, Depression Integumentary: No Blood Disorders: No Family Medical History Reviewed Nursing Family Hx Patient reports no known family medical history. Heart Disease, Hypertension Physical Exam-Suspected Sepsis Physical Exam Vital Signs Vital Signs - First Documented 12/02/17 03:27 Temp 99.1 Pulse 92 Resp 22 B/P (MAP) 127/62 (83) Pulse Ox 94 O2 Delivery Room Air Capillary Refill : Height, Weight, BMI Height: 5'3.00" Weight: 161lbs. 2.0oz. 73.964576kh; 29.2 BMI Method:Stated General Appearance: No Apparent Distress, WD/WN HEENT: PERRL/EOMI, Pharynx Normal Neck: Full Range of Motion, Non Tender Respiratory: Crackles (right upper especially and somewhat less to the right lower. Few crackles on the left side.), Expiration, Inspiration Cardiovascular: Regular Rate, Rhythm, No Murmur Gastrointestinal: Non Tender, Soft Back: Normal Inspection, No CVA Tenderness, No Vertebral Tenderness Extremity: Normal Range of Motion, Non Tender Neurologic/Psychiatric: Alert, Oriented x3 Skin: normal color, warm/dry Focused Exam Lactate Level 12/02/17 03:45: Lactic Acid Level 2.24*H Lactic Acid Level Laboratory Tests Test 12/02/17 03:45 Lactic Acid Level 2.24 MMOL/L (0.50-2.00) *H Progress/Results/Core Measures Suspected Sepsis SIRS Temperature: Pulse: Respiratory Rate: Laboratory Tests 12/02/17 03:45: White Blood Count 6.0 Blood Pressure / Mean: 12/02/17 03:45: Lactic Acid Level 2.24*H Laboratory Tests 12/02/17 03:45: Creatinine 1.13, INR Comment 1.0, Platelet Count 377, Total Bilirubin 0.4 Results/Orders Lab Results Laboratory Tests Test 12/02/17 03:45 Range/Units White Blood Count 6.0 4.3-11.0 10^3/uL Red Blood Count 4.01 L 4.35-5.85 10^6/uL Hemoglobin 11.7 11.5-16.0 G/DL Hematocrit 35 35-52 % Mean Corpuscular Volume 87 80-99 FL Mean Corpuscular Hemoglobin 29 25-34 PG Mean Corpuscular Hemoglobin Concent 34 32-36 G/DL Red Cell Distribution Width 13.4 10.0-14.5 % Platelet Count 377 130-400 10^3/uL Mean Platelet Volume 9.8 7.4-10.4 FL Neutrophils (%) (Auto) 78 H 42-75 % Lymphocytes (%) (Auto) 19 12-44 % Monocytes (%) (Auto) 2 0-12 % Eosinophils (%) (Auto) 1 0-10 % Basophils (%) (Auto) 0 0-10 % Neutrophils # (Auto) 4.7 1.8-7.8 X 10^3 Lymphocytes # (Auto) 1.1 1.0-4.0 X 10^3 Monocytes # (Auto) 0.1 0.0-1.0 X 10^3 Eosinophils # (Auto) 0.1 0.0-0.3 10^3/uL Basophils # (Auto) 0.0 0.0-0.1 10^3/uL Prothrombin Time 13.5 12.2-14.7 SEC INR Comment 1.0 0.8-1.4 Activated Partial Thromboplast Time 32 24-35 SEC Sodium Level 139 135-145 MMOL/L Potassium Level 3.7 3.6-5.0 MMOL/L Chloride Level 102 98-107 MMOL/L Carbon Dioxide Level 24 21-32 MMOL/L Anion Gap 13 5-14 MMOL/L Blood Urea Nitrogen 23 H 7-18 MG/DL Creatinine 1.13 0.60-1.30 MG/DL Estimat Glomerular Filtration Rate 47 BUN/Creatinine Ratio 20 Glucose Level 179 H 70-105 MG/DL Lactic Acid Level 2.24 *H 0.50-2.00 MMOL/L Calcium Level 9.1 8.5-10.1 MG/DL Corrected Calcium 9.0 8.5-10.1 MG/DL Total Bilirubin 0.4 0.1-1.0 MG/DL Aspartate Amino Transf (AST/SGOT) 39 H 5-34 U/L Alanine Aminotransferase (ALT/SGPT) 30 0-55 U/L Alkaline Phosphatase 70 40-136 U/L Total Protein 6.5 6.4-8.2 GM/DL Albumin 4.1 3.2-4.5 GM/DL My Orders Orders - LISA LESLIE MD Cbc With Automated Diff (12/02/17 03:34) Comprehensive Metabolic Panel (12/02/17 03:34) Saline Lock/Iv-Start (12/02/17 03:34) Ondansetron Injection (Zofran Injectio (12/02/17 03:45) Saline Lock/Iv-Start (12/02/17 03:34) Ns Iv 1000 Ml (Sodium Chloride 0.9%) (12/02/17 03:34) Blood Culture (12/02/17 03:50) Sputum Culture (12/02/17 03:50) Urinalysis (12/02/17 03:50) Urine Culture (12/02/17 03:50) Protime With Inr (12/02/17 03:50) Partial Thromboplastin Time (12/02/17 03:50) Chest 1 View, Ap/Pa Only (12/02/17 03:50) Vital Signs Adult Sepsis Patie Q15M (12/02/17 03:50) O2 (12/02/17 03:50) Remove Rings In Anticipation O (12/02/17 03:50) Lactic Acid Analyzer (12/02/17 03:50) Saline Lock/Iv-Start (12/02/17 04:20) Piperacillin Sodium/Tazobactam (Zosyn Vi (12/02/17 04:30) Ekg Tracing (12/02/17 04:34) Ct Chest Wo (12/02/17 05:12) Medications Given in ED Current Medications Medications Dose Ordered Sig/Jose Enrique Route Start Time Stop Time Status Last Admin Dose Admin Ondansetron HCl 4 mg ONCE ONCE IVP 12/02/17 03:45 12/02/17 03:46 DC 12/02/17 03:52 4 MG Piperacillin Sod/ Tazobactam Sod 4.5 gm/Sodium Chloride 100 ml @ 200 mls/hr ONCE ONCE IV 12/02/17 04:30 12/02/17 04:59 DC 12/02/17 04:55 200 MLS/HR Sodium Chloride 1,000 ml @ 0 mls/hr Q0M ONCE IV 12/02/17 03:34 12/02/17 03:41 DC 12/02/17 03:53 1,000 MLS/HR Vital Signs/I&O 12/02/17 03:27 Temp 99.1 Pulse 92 Resp 22 B/P (MAP) 127/62 (83) Pulse Ox 94 O2 Delivery Room Air Capillary Refill : Progress Note : Progress Note Seen and evaluated. IV, labs, UA, chest x-ray, normal saline 1 L bolus, blood cultures and lactic acid ordered. Monitor patient. 0415: Second IV ordered. Patient has fairly significant right multilobar pneumonia. Zosyn 4.5 g IV ordered. Monitor patient. 0436: I did discuss the case with Dr. Nicole. She accepts patient for admission, inpatient status to the ICU. We will discuss the case with Dr. Burrows. 0500: I did discuss the case with Dr. Burrows and he accepts patient for consult. He will come by the ED directly. Patient and family informed of my concerns and agree with the plan. ECG Initial ECG Impression Date: Dec 02, 2017 Initial ECG Impression Time: 04:41 Initial ECG Rate: 96 Initial ECG Rhythm: Normal Sinus Comment Sinus rhythm with LVH. Left axis deviation. No evidence of ST elevation [place]. Similar to previous of 05/25/17. Interpreted by me. Diagnostic Imaging Diagonstic Imaging: Xray Plain Films/CT/US/NM/MRI: chest Comments Right-sided multilobar pneumonia Reviewed: Reviewed by Me Departure Communication (Admissions) Time/Spoke to Admitting Phy: 04:36 Time/Spoke to Consulting Phy: 05:00 Impression Primary Impression: Pneumonia involving right lung Qualified Codes: J18.9 - Pneumonia, unspecified organism Additional Impression: Sepsis Qualified Codes: A41.9 - Sepsis, unspecified organism Disposition: ADMITTED INPATIENT Condition: Stable Admissions Decision to Admit Reason: Admit from ER (General) Decision to Admit/Date: Dec 02, 2017 Time/Decision to Admit Time: 04:36 Departure-Patient Inst. Referrals: KURTIS NICOLE MD (PCP/Family) Primary Care Physician LISA LESLIE MD Dec 02, 2017 04:20
[2017-12-02 04:24] LABS: ALBUMIN 4.1 GM/DL (3.2-4.5); BILIRUBIN,TOTAL 0.4 MG/DL (0.1-1.0); CALCIUM 9.1 MG/DL (8.5-10.1); CREATININE SERUM 1.13 MG/DL (0.60-1.30); POTASSIUM 3.7 MMOL/L (3.6-5.0); TOTAL PROTEIN 6.5 GM/DL (6.4-8.2)
[2017-12-02] MEDS ORDERED: PIPERACILLIN SODIUM/TAZOBACTAM 4.5 GM in NS (IVPB) 100 ML IV ONE (04:30)
--- NOTE | 2017-12-02 05:48 | Pulmonary Consultation ---
History of Present Illness History of Present Illness Date of Consultation 12/02/17 05:42 Time Seen by Provider: 05:43 Date of Admission History of Present Illness 77yo presented to ED secondary to persistent cough and hemoptysis since 1am with blood clots. She has also had N/V. Pt is on Eliquis as out patient. Previous cultures reviewed and she has only grown out Klebsiella in her urine that is ESBL negative. Allergies and Home Medications Allergies Coded Allergies: canagliflozin (Verified Allergy, Severe, LIGHT HEADED/HEADACHES/UTI/FELT LIKE SHE WOULD PASS OUT, 02/18/17) liraglutide (Verified Allergy, Severe, RAPID HEART RATE/HEADACHE/DIZZINESS , 02/18/17) Zcfrexb-Asf-Cfc Reductase Inhibitor (Verified Adverse Reaction, Severe, MUSCLE PAIN, 02/18/17) Home Medications Acetaminophen/Diphenhydramine 1 Each Tablet, 1 TAB PO HS, (Reported) Apixaban 5 Mg Tablet, 5 MG PO BID, (Reported) Diclofenac Sodium 100 Gm Gel..gram., 100 GM TP TID Prescribed by: TUNDE BARROW on 08/25/17635 Digoxin 250 Mcg Tablet, 0.25 MG PO DAILY Prescribed by: KURTIS DIEGO on 05/26/17814 Escitalopram Oxalate 5 Mg Tablet, 5 MG PO DAILY, (Reported) Ezetimibe 10 Mg Tablet, 10 MG PO HS, (Reported) Fluticasone Propionate 16 Gm [place].susp, 1 SPRAY NS BID PRN for ALLERGIES, ( Reported) Furosemide 40 Mg Tablet, 40 MG PO DAILY Prescribed by: KURTIS DIEGO on 05/26/17814 Gabapentin 600 Mg Tablet, 600 MG PO TID, (Reported) Insulin Glargine,Hum.rec.anlog 100 Unit/1 Ml Insuln.pen, 10 UNIT SQ DAILY, ( Reported) Levothyroxine Sodium 50 Mcg Tablet, 50 MCG PO DAILY, (Reported) Metformin HCl 500 Mg Tablet, 500 MG PO HS, (Reported) Metformin HCl 500 Mg Tablet, 750 MG PO 0700,1200, (Reported) TAKES 1 & 1/2 (500MG) TABLETS Methylprednisolone 4 Mg Tab.ds.pk, 4 MG PO UD Prescribed by: TUNDE BARROW on 08/25/17635 Metoprolol Succinate 100 Mg Tab.er.24h, 100 MG PO DAILY Prescribed by: KURTIS DIEGO on 05/26/17814 [place] 3 Polyunsat Fatty Acids 1,000 Mg Cap, 1,000 MG PO DAILY, (Reported) Pantoprazole Sodium 40 Mg Tablet.dr, 40 MG PO DAILY, (Reported) Potassium Chloride 20 Meq Tab.er.prt, 20 MEQ PO DAILY@0700 Prescribed by: KURTIS DIEGO on 05/26/17814 Prasugrel HCl 10 Mg Tablet, 10 MG PO DAILY, (Reported) Sacubitril/Valsartan 1 Each Tablet, 1 TAB PO BID, (Reported) Tramadol HCl 50 Mg Tablet, 50 MG PO Q4H Prescribed by: TUNDE BARROW on 08/25/17 0636 [Nitroglycerin] 0.4 MG BTL, 0 MG SL PRN PRN for CHEST PAIN Prescribed by: KURTIS DIEGO on 05/26/17814 Past Ywsunvx-Cqvelb-Bmugfn Hx Past Med/Social Hx: Reviewed Nursing Past Med/Soc Hx Patient Social History Alcohol Use: Occasionally Uses Recreational Drug Use: No Smoking Status: Never a Smoker 2nd Hand Smoke Exposure: No Recent Foreign Travel: No Contact w/Someone Who Travel: No Recent Infectious Disease Expo: No Recent Hopitalizations: No Physical Abuse: No Sexual Abuse: No Immunizations Up To Date Tetanus Booster (TDap): Unknown Date of Pneumonia Vaccine: Feb 14, 2018 Date of Influenza Vaccine: Dec 16, 2015 Seasonal Allergies Seasonal Allergies: Yes Past Medical History Surgeries: Yes (bilat TKR, bilat carpal tunnel) Bladder Surgery, Coronary Stent, Hysterectomy, Orthopedic, Tonsillectomy Respiratory: No Cardiac: Yes (aortic stenosis, carotid stenosis, cardiac stent) Coronary Artery Disease, High Cholesterol, Hypertension, Peripheral Vascular, Valvular Heart Disease Neurological: No Genitourinary: Yes UTI-Chronic Gastrointestinal: No Musculoskeletal: No Endocrine: Yes Diabetes, Non-Insulin dep HEENT: No Loss of Vision: Denies Hearing Impairment: Denies Cancer: No Psychosocial: Yes Anxiety, Depression Integumentary: No Blood Disorders: No Family Medical History Reviewed Nursing Family Hx Patient reports no known family medical history. Heart Disease, Hypertension Sepsis Event Evaluation Height, Weight, BMI Height: 5'3.00" Weight: 158lbs. 2.0oz. 71.136620in; 29.2 BMI Method:Stated Exam Exam Vital Signs Date Time Temp Pulse Resp B/P (MAP) Pulse Ox O2 Delivery O2 Flow Rate FiO2 12/02/17 03:27 99.1 92 22 127/62 (83) 94 Room Air Height & Weight Height: 5'3.00" Weight: 158lbs. 2.0oz. 71.045477ur; 29.2 BMI Method:Stated General Appearance: No Apparent Distress, WD/WN HEENT: PERRL/EOMI, Pharynx Normal Neck: Full Range of Motion, Non Tender Respiratory: Crackles (right upper especially and somewhat less to the right lower. Few crackles on the left side.), Expiration, Inspiration Cardiovascular: Regular Rate, Rhythm, No Murmur Capillary Refill: Less Than 3 Seconds Extremity: Normal Range of Motion, Non Tender Neurologic/Psychiatric: Alert, Oriented x3 Results Lab Laboratory Tests 12/02/17 03:45 Assessment/Plan Assessment/Plan Pneumonia R/O early sepsis (no leukocytosis currently Tm is 99.7) -Zosyn and Vanco -IVF -Michele culture -Check urine strep and legionella ag Hemoptysis with blood clots -Hold eliquis -Plan for bronchoscopy tomorrow morning -Check PANCA/CANCA, GUMARO, Anti Glm basement Ab. Hx of moderate aortic stenosis -Check echocardiogram r/o vegetation Dehydration -IVF PAF hx -Will hold eliquis for now secondary to hemoptysis Diastolic CHF hx - currently appears stable -Monitor CAD with hx of stents 02/[address] [place] [address] Micah MARTÍNEZ II NICOLA MCCLELLAN DO Dec 02, 2017 05:48
[2017-12-02] MEDS ORDERED: PHARMACY TO DOSE IV SCH (06:00)
[2017-12-02] MEDS: PANTOPRAZOLE 40 MG (PROTONIX) TAB PO SCH (06:39)
[2017-12-02] MEDS: NS IV 1000 ML 1,000 ML IV SCH (06:39)
[2017-12-02] MEDS ORDERED: NS IV 1000 ML 1,000 ML IV SCH (06:45)
[2017-12-02] MEDS ORDERED: RT-ALBUTEROL/IPRATROPIUM 3 ML (DUONEB) VIAL INH PRN (06:45)
[2017-12-02] MEDS ORDERED: VANCOMYCIN 1500 MG/NS 500 ML IVPB IV NR ×2 (07:30)
--- NOTE | 2017-12-02 07:45 | Diagnostic Imaging Report ---
PROCEDURE: CT chest without contrast. TECHNIQUE: Multiple contiguous axial images were obtained through the chest without the use of intravenous contrast. INDICATION: Cough and congestion. Noncontrasted axial CT images of the thorax are obtained which reveal extensive patchy confluent airspace disease involving primarily the right upper and middle lobes with lesser involvement of both lower lobes and the left upper lobe. There is no significant pleural or pericardial fluid. No pathologic adenopathy is identified. There is dense coronary artery calcification. There is mild hiatal hernia. Mild diffuse thoracic spondylosis is also noted. IMPRESSION: Confluent airspace disease involving both lungs with predominance in the right upper and middle lobes. This may represent edema or pneumonitis. Atypical pneumonia could have this appearance and clinical correlation and short-term CT followup is suggested to document resolution. Dictated by: Dictated on workstation # [id number]
--- NOTE | 2017-12-02 07:46 | Diagnostic Imaging Report ---
INDICATION: Cough and congestion Portable upright chest radiograph is obtained with comparison made to the study of 05/26/2017. There has been development of extensive airspace disease throughout the right lung. Mild patchy increased density is also seen in the left parahilar region. No pneumothorax or significant pleural fluid is identified. IMPRESSION: Rather extensive right airspace disease likely due to pneumonia. Asymmetric edema or pneumonitis could have similar appearance and clinical correlation is recommended. Dictated by: Dictated on workstation # [id number]
--- NOTE | 2017-12-02 07:55 | Consultation-Cardiology ---
HPI-Cardiology Cardiology Consultation: Date of Consultation 12/02/17 Time Seen by a Provider: 08:25 Date of Admission 12-02-17 Attending Physician Mila Nicole MD Admitting Physician Mila Nicole MD Consulting Physician Nathanael Owens MD HPI: Chief Complaint: Pneumonia Hemoptysis Ms. Momin is a 77 year old female admitted to ICU 11 from the ED. She reports she was in her usual state of health. She states she was very active yesterday cleaning her house and was able to do so without difficulty. She reports she was tired at the end of the day and went to bed early. She woke up around midnight to use the bathroom. She did so without difficulty, but she reports when she returned back to bed and laid down she began to feel short of breath, nauseated and started coughing. She sat up on the side of the bed and the nausea worsened. She went to the kitchen and coughed up/threw up in to the trash can. She then went back to bed, but continued to cough and feel nauseated. She then went to the bathroom and coughed up into the stool. She reports she noticed small bright red clots in the stool. She reports she went back to bed and continued to feel short of breath and cough. She then had family bring her to the ED. She continues to have hemoptysis. She reports she feels tired this morning. No c/o CP, palpitations, syncope, near syncope or LE edema. She denies any nausea this morning. She denies any fever or chills. She denies any diarrhea. Review of Systems-Cardiology Review of Systems Constitutional: No chills, No fever; tiredness Eyes: No vision change Ears/Nose/Throat: No epistaxis, No recent hearing loss Respiratory: As described under HPI Cardiovascular: As described under HPI Gastrointestinal: No nausea, No vomiting Genitourinary: No dysuria, No hematuria Musculoskeletal: back pain, joint pain (right shoulder) Skin: No rash, No ulcerations Psychiatric/Neurological: No seizure, No focal weakness, No syncope Hematologic: No bleeding abnormalities All Other Systems Reviewed Negative Unless Noted: Yes YOY-Xqhazy-Xvroci Hx Patient Social History Alcohol Use: Occasionally Uses Recreational Drug Use: No Smoking Status: Never a Smoker 2nd Hand Smoke Exposure: No Recent Foreign Travel: No Recent Infectious Disease Expo: No Hospitalization with Isolation: Denies Physical Abuse Screen: No Sexual Abuse: No Immunizations Up To Date Tetanus Booster (TDap): Unknown Date of Pneumonia Vaccine: Feb 14, 2017 Date of Influenza Vaccine: Nov 15, 2017 Past Medical History PMH As described under Assessment. Family Medical History Family History: Patient reports no known family medical history. Allergies and Home Medications Allergies Coded Allergies: canagliflozin (Verified Allergy, Severe, LIGHT HEADED/HEADACHES/UTI/FELT LIKE SHE WOULD PASS OUT, 02/18/17) liraglutide (Verified Allergy, Severe, RAPID HEART RATE/HEADACHE/DIZZINESS , 02/18/17) Mtyjyqn-Mrh-Ncz Reductase Inhibitor (Verified Adverse Reaction, Severe, MUSCLE PAIN, 02/18/17) Home Medications Acetaminophen 500 Mg Tablet, 500-1,000 MG PO Q4H PRN for PAIN-MILD, (Reported) Acetaminophen/Diphenhydramine 1 Each Tablet, 1 TAB PO HS, (Reported) Apixaban 5 Mg Tablet, 5 MG PO BID, (Reported) Diclofenac Sodium 100 Gm Gel..gram., TP BID PRN for JOINT PAIN, (Reported) Digoxin 250 Mcg Tablet, 125 MCG PO DAILY, (Reported) TAKES 1/2 (250 MCG) TABLET Escitalopram Oxalate 10 Mg Tablet, 10 MG PO DAILY PRN for DEPRESSION, (Reported) Ezetimibe 10 Mg Tablet, 10 MG PO HS, (Reported) Fluticasone Propionate 16 Gm [place].susp, 1 SPRAY NS BID PRN for ALLERGIES, ( Reported) Furosemide 40 Mg Tablet, 40 MG PO DAILY PRN for SWELLING, (Reported) LAST FILLED #30 09-01-17 Gabapentin 600 Mg Tablet, 600 MG PO TID, (Reported) LAST FILLED #270 01-27-17 Insulin Glargine,Hum.rec.anlog 100 Unit/1 Ml Insuln.pen, 20 UNITS SC DAILY, ( Reported) Levothyroxine Sodium 50 Mcg Tablet, 50 MCG PO DAILY, (Reported) Metformin HCl 500 Mg Tablet, 500 MG PO HS, (Reported) Metformin HCl 500 Mg Tablet, 750 MG PO 0700,1200, (Reported) TAKES 1 & 1/2 (500MG) TABLETS Metoprolol Succinate 100 Mg Tab.er.24h, 100 MG PO DAILY, (Reported) Nitroglycerin 0.4 Mg Tab.subl, 0.4 MG SL UD PRN for CHEST PAIN, (Reported) [place] 3 Polyunsat Fatty Acids 1,000 Mg Cap, 1,000 MG PO DAILY, (Reported) Pantoprazole Sodium 40 Mg Tablet.dr, 40 MG PO DAILY, (Reported) Potassium Chloride 20 Meq Tab.er.prt, 20 MEQ PO DAILY PRN for WHEN TAKING FUROSEMIDE, (Reported) Prasugrel HCl 10 Mg Tablet, 10 MG PO DAILY, (Reported) Sacubitril/Valsartan 1 Each Tablet, 1 TAB PO BID, (Reported) Physical Exam-Cardiology Physical Exam Vital Signs/I&O 12/02/17 12/02/17 12/02/17 12/02/17 19:49 20:00 20:00 20:30 Temp 99.0 97.9 Pulse 100 Resp 19 B/P (MAP) 132/75 (94) Pulse Ox 96 O2 Delivery Mechanical Ventilator Mechanical Ventilator O2 Flow Rate 100.00 FiO2 100 12/02/17 12/02/17 12/02/17 12/02/17 20:57 21:00 21:41 21:41 Pulse 97 111 109 104 Resp 23 23 14 16 B/P (MAP) 121/65 (83) 103/59 (74) Pulse Ox 99 96 O2 Delivery Mechanical Ventilator Mechanical Ventilator O2 Flow Rate 50.00 40.00 FiO2 100 50 12/02/17 12/02/17 12/02/17 12/02/17 22:00 22:24 22:25 23:31 Temp 96.8 Pulse 100 Resp 17 B/P (MAP) 104/60 (75) 210/110 103/60 O2 Delivery Mechanical Ventilator O2 Flow Rate 40.00 12/03/17 12/03/17 12/03/17 12/03/17 00:00 00:00 00:28 00:37 Pulse 93 91 Resp 18 18 B/P (MAP) 104/58 (73) 142/73 Pulse Ox 97 96 98 O2 Delivery Mechanical Ventilator Mechanical Ventilator O2 Flow Rate 40.00 FiO2 100 40 12/03/17 12/03/17 12/03/17 12/03/17 00:58 01:00 01:00 02:00 Pulse 90 91 89 Resp 12 12 B/P (MAP) 100/52 (68) 125/59 (81) Pulse Ox 97 98 O2 Delivery Mechanical Ventilator Mechanical Ventilator Mechanical Ventilator O2 Flow Rate 30.00 30.00 30.00 9/21/18 12/03/17 12/03/17 12/03/17 02:04 03:00 03:56 04:00 Temp 96.8 Pulse 88 105 82 Resp 15 12 13 B/P (MAP) 128/72 (90) 91/48 (62) Pulse Ox 97 93 94 O2 Delivery Mechanical Ventilator Mechanical Ventilator O2 Flow Rate 30.00 30.00 FiO2 40 12/03/17 12/03/17 12/03/17 12/03/17 04:00 04:13 05:22 06:08 Pulse 82 79 Resp 17 18 B/P (MAP) 104/61 Pulse Ox 94 95 99 O2 Delivery Mechanical Ventilator FiO2 30 30 30 12/03/17 00:00 Intake Total 860 ml Output Total 1600 ml Balance -740 ml Capillary Refill : Less Than 3 Seconds Constitutional: AAO x 3, well-developed, well-nourished HEENT: PERRL, hearing is well preserved, oral hygience is good Neck: No carotid bruit; carotid pulses are 2 + bilaterally Respiratory: No accessory muscle use, No respiratory distress; chest expansion is symmetric, chest is bilaterally symmetric, other (diminished throughout; R>L) Cardiovascular: regular rate-rhythm; No JVD; S1 and S2 Gastrointestinal: No tender; soft, round Rectal: deferred Extremities: no lower extremity edema bilateral Neurologic/Psychiatric: grossly intact, power is 5/5 both on sides Skin: normal color, warm/dry; No rash, No ulcerations Data Review Labs Laboratory Tests 12/02/17 09:35: Urine Color YELLOW, Urine Clarity CLEAR, Urine pH 6, Urine Specific [place] 1.015L, Urine Protein NEGATIVE, Urine Glucose (UA) NEGATIVE, Urine Ketones NEGATIVE, Urine Nitrite POSITIVEH, Urine Bilirubin NEGATIVE, Urine Urobilinogen NORMAL, Urine Leukocyte Esterase 2+H, Urine RBC (Auto) NEGATIVE, Urine RBC NONE , Urine WBC 5-10H, Urine Squamous Epithelial Cells 5-10, Urine Crystals NONE, Urine Bacteria MODERATEH, Urine Casts NONE, Urine Mucus NEGATIVE, Urine Culture Indicated YES 12/02/17 20:35: Blood Gas Puncture Site RIGHT RADIAL, Blood Gas Patient Temperature 97.8, Arterial Blood pH 7.40, Arterial Blood Partial Pressure CO2 36, Arterial Blood Partial Pressure O2 404H, Arterial Blood HCO3 22L, Arterial Blood Total CO2 22.9 , Arterial Blood Oxygen Saturation 100, Arterial Blood Base Excess -2.4, Sal Test POSITIVE, Blood Gas Ventilator Setting YES, Blood Gas Inspired Oxygen 100% 12/02/17 20:45: Triglycerides Level 259H 12/02/17 22:02: Glucometer 245H 12/02/17 23:30: Glucometer 201H 12/03/17 03:13: White Blood Count 10.7, Red Blood Count 3.33L, Hemoglobin 9.4L, Hematocrit 30L, Mean Corpuscular Volume 90, Mean Corpuscular Hemoglobin 28, Mean Corpuscular Hemoglobin Concent 31L, Red Cell Distribution Width 14.1, Platelet Count 309, Mean Platelet Volume 10.0, Neutrophils (%) (Auto) 85H, Lymphocytes (%) (Auto) 12 , Monocytes (%) (Auto) 3, Eosinophils (%) (Auto) 0, Basophils (%) (Auto) 0, Neutrophils # (Auto) 9.0H, Lymphocytes # (Auto) 1.3, Monocytes # (Auto) 0.3, Eosinophils # (Auto) 0.0, Basophils # (Auto) 0.0, Prothrombin Time 15.7H, INR Comment 1.3, Activated Partial Thromboplast Time 46H, Sodium Level 140, Potassium Level 3.9, Chloride Level 108H, Carbon Dioxide Level 19L, Anion Gap 13 , Blood Urea Nitrogen 18, Creatinine 1.18, Estimat Glomerular Filtration Rate 44 , BUN/Creatinine Ratio 15, Glucose Level 168H, Lactic Acid Level 4.63*H, Calcium Level 7.8L, Corrected Calcium 8.4L, Phosphorus Level 4.2, Magnesium Level 1.9, Total Bilirubin 0.3, Aspartate Amino Transf (AST/SGOT) 28, Alanine Aminotransferase (ALT/SGPT) 21, Alkaline Phosphatase 55, B-Type Natriuretic Peptide 1922.4H, Total Protein 5.5L, Albumin 3.3 12/03/17 03:20: Blood Gas Puncture Site LEFT RADIAL, Blood Gas Patient Temperature 97.5, Arterial Blood pH 7.30*L, Arterial Blood Partial Pressure CO2 44, Arterial Blood Partial Pressure O2 92, Arterial Blood HCO3 22L, Arterial Blood Total CO2 23.0, Arterial Blood Oxygen Saturation 97, Arterial Blood Base Excess -3.9L, Sal Test YES-POS, Blood Gas Ventilator Setting YES, Blood Gas Inspired Oxygen 30% Microbiology 12/02/17 Blood Culture - Preliminary, Resulted No growth 12/02/17 Influenza Types A,B Antigen (PINA) - Final, Complete Radiology NAME: CAMERON MOMIN [facility] REC#: [id number] PT STATUS: ADM IN : 1940 PHYSICIAN: LISA LESLIE MD ADMIT DATE: 12/02/17/ICU Draft Date of Exam:12/02/17 CT CHEST WO PROCEDURE: CT chest without contrast. TECHNIQUE: Multiple contiguous axial images were obtained through the chest without the use of intravenous contrast. INDICATION: Cough and congestion. Noncontrasted axial CT images of the thorax are obtained which reveal extensive patchy confluent airspace disease involving primarily the right upper and middle lobes with lesser involvement of both lower lobes and the left upper lobe. There is no significant pleural or pericardial fluid. No pathologic adenopathy is identified. There is dense coronary artery calcification. There is mild hiatal hernia. Mild diffuse thoracic spondylosis is also noted. IMPRESSION: Confluent airspace disease involving both lungs with predominance in the right upper and middle lobes. This may represent edema or pneumonitis. Atypical pneumonia could have this appearance and clinical correlation and short-term CT followup is suggested to document resolution. Dictated on workstation # [id number] Dict: 12/02/17 0741 Trans: 12/02/17 0744 [facility] [id number] Interpreted by: DAYTON MEADOWS MD Electronically signed by: NAME: CAMERON MOMIN [facility] REC#: [id number] PT STATUS: ADM IN : 1940 PHYSICIAN: LISA LESLIE MD ADMIT DATE: 12/02/17/ICU Draft Date of Exam:12/02/17 CHEST 1 VIEW, AP/PA ONLY INDICATION: Cough and congestion Portable upright chest radiograph is obtained with comparison made to the study of 05/26/2017. There has been development of extensive airspace disease throughout the right lung. Mild patchy increased density is also seen in the left parahilar region. No pneumothorax or significant pleural fluid is identified. IMPRESSION: Rather extensive right airspace disease likely due to pneumonia. Asymmetric edema or pneumonitis could have similar appearance and clinical correlation is recommended. Dictated on workstation # [id number] Dict: 12/02/17 0742 Trans: 12/02/17 0746 [facility] [id number] Interpreted by: DAYTON MEADOWS MD Electronically signed by: ECG Impression ECG Initial ECG Rhythm: Normal Sinus A/P-Cardiology Assessment/Admission Diagnosis Pneumonia with sepsis - management per medical/pulmonary services Hemoptysis of undetermined etiology - Eliquis currently being withheld and bronchoscopy planned for tomorrow by pulmonary Chronic diastolic CHF PAF, first documented on tele strips at [facility] in early 2016. Currently in NSR TSH normal (2.19) on 07/07/17 Echo of 05/26/17: LVEF 50%, grade 3 rehman dysfunction, MAC, mild MR, mod to severe , PASP 40-45 mmHg CAD. S/p prox LAD stenting by Dr Obrien at [facility] on 02/20/17: Promus 2.5x24. Cath on 02/18/17 prior to cor stenting showed dual LAD, one of which was proximally occluded and the other was severely diseased. Rest of the cors had mod dz H/O Ischemic cm. LVEF on 02/18/17 was 35% MPI of 01/12/17: anteroapical infarction w/o significant ischemia; LVEF 39% Dizziness and vertigo of recent onset (Mar 2015), improved after reduction of anti-htn and Invokana treatment in early Apr 2015 MRI head on 05/10/15 (Dr Mariano) did not show lesions other than possibility of chronic microvascular disease Valvular heart disease. Cath of 02/18/17 showed mod MR and a gradient across AoV of 25-30 mmHg. Mod with valve area 1.4 cm sq and mean gradient across aortic valve of 23 mmHg on echo of 01/08/17. Subsequent echo as noted above DM II CKD stage 3, likely diabetic nephropathy. eGFR on 05/25/17 is 44 Hyperlipidemia Intolerance to statins (severe joint pains) S/p hysterectomy w/o oophorectomy S/p bilateral knee replacement H/o R rotator cuff surgery Hypothyroidism, treated with thyroid replacement therapy Strong fam h/o CAD Bilateral leg and foot discomfort which has been diagnosed as neuropathy Mild bilat carotid arterial disease on carotid u/s of 06/08/17 Normal bilat EDDY of June 2014 Abn ECG. ECG of 05/13/17: NSR, old ASMI Mild chronic anemia, followed and treated by pcp Discussion and Recomendations Pneumonia with sepsis and hemoptysis OK to hold Eliquis for now d/t hemoptysis until source is determined and treated Last stenting was greater than 6 months ago. OK to hold Effient Advise low dose ASA if OK with pulmonary/medical services d/t CAD with stenting Bronchoscopy planned for tomorrow Continue antihypertensives Monitor lab Currently maintaining SR Further recs will be based on her hospital course We would like to thank pulmonary and medical services for this consult Clinical Quality Measures DVT/VTE Risk/Contraindication: Risk Factor Score Per Nursin RFS Level Per Nursing on Admit: 3=High VINEET DASILVA Dec 02, 2017 07:55
--- NOTE | 2017-12-02 08:47 | History & Physicial ---
History of Present Illness History of Present Illness Reason for visit/HPI PT IS A 77 Y/O FEMALE WHO IS KNOWN TO ME FROM CLINIC. SHE PRESENTED TO THE EMERGENCY DEPARTMENT LAST NIGHT AFTER HAVING HEMOPTYSIS. SHE REPORTS THAT SHE HAD BEEN FEELING GOOD, WAS CLEANING HOUSE YESTERDAY - DUSTING, WIPING DOWN ITEMS AND CLEANING STUFF WITH [employer]AY [employer]. SHE REPORTS THAT SHE WAS NOT SHORT OF BREATH OR COUGHING AT ALL DURING THIS POINT, HOWEVER SHE STARTED TO HAVE COUGHING IN THE MIDDLE OF THE NIGHT. SHE REPORTS THAT SHE WAS LYING ON HER RIGHT SIDE IN BED, COUGHING INTO THE PILLOWS IN AN ATTEMPT TO NOT WAKE UP HER , SHE THEN BECAME NAUSEATED, WENT TO THE RESTROOM AND VOMITED TWICE. ON THE SECOND EPISODE OF EMESIS SHE SAW BLOOD IN THE TOILET AND THEN STARTED COUGHING AND HAD BLOOD IN THE TISSUE. SHE THEN BECAME PROGRESSIVELY SHORT OF BREATH AND WAS TAKEN TO THE HOSPITAL WHERE SHE WAS FOUND TO HAVE ALMOST COMPLETE WHITE OUT OF THE RIGHT LUNG. Date of Admission Dec 02, 2017 at 04:58 Date Seen by a Provider: Dec 02, 2017 Time Seen by a Provider: 08:30 I consulted on this patient on 12/02/17 08:30 Attending Physician Kurtis Nicole MD Admitting Physician Kurtis Nicole MD Consult DR. LOPEZ AND DR. MCCLELLAN Allergies and Home Medications Allergies Coded Allergies: canagliflozin (Verified Allergy, Severe, LIGHT HEADED/HEADACHES/UTI/FELT LIKE SHE WOULD PASS OUT, 02/18/17) liraglutide (Verified Allergy, Severe, RAPID HEART RATE/HEADACHE/DIZZINESS , 02/18/17) Dihiqov-Teg-Sae Reductase Inhibitor (Verified Adverse Reaction, Severe, MUSCLE PAIN, 02/18/17) Home Medications Acetaminophen 500 Mg Tablet, 500-1,000 MG PO Q4H PRN for PAIN-MILD, (Reported) Acetaminophen/Diphenhydramine 1 Each Tablet, 1 TAB PO HS, (Reported) Apixaban 5 Mg Tablet, 5 MG PO BID, (Reported) Diclofenac Sodium 100 Gm Gel..gram., TP BID PRN for JOINT PAIN, (Reported) Digoxin 250 Mcg Tablet, 125 MCG PO DAILY, (Reported) TAKES 1/2 (250 MCG) TABLET Escitalopram Oxalate 10 Mg Tablet, 10 MG PO DAILY PRN for DEPRESSION, (Reported) Ezetimibe 10 Mg Tablet, 10 MG PO HS, (Reported) Fluticasone Propionate 16 Gm [place].susp, 1 SPRAY NS BID PRN for ALLERGIES, ( Reported) Furosemide 40 Mg Tablet, 40 MG PO DAILY PRN for SWELLING, (Reported) LAST FILLED #30 09-01-17 Gabapentin 600 Mg Tablet, 600 MG PO TID, (Reported) LAST FILLED #270 01-27-17 Insulin Glargine,Hum.rec.anlog 100 Unit/1 Ml Insuln.pen, 20 UNITS SC DAILY, ( Reported) Levothyroxine Sodium 50 Mcg Tablet, 50 MCG PO DAILY, (Reported) Metformin HCl 500 Mg Tablet, 500 MG PO HS, (Reported) Metformin HCl 500 Mg Tablet, 750 MG PO 0700,1200, (Reported) TAKES 1 & 1/2 (500MG) TABLETS Metoprolol Succinate 100 Mg Tab.er.24h, 100 MG PO DAILY, (Reported) Nitroglycerin 0.4 Mg Tab.subl, 0.4 MG SL UD PRN for CHEST PAIN, (Reported) [place] 3 Polyunsat Fatty Acids 1,000 Mg Cap, 1,000 MG PO DAILY, (Reported) Pantoprazole Sodium 40 Mg Tablet.dr, 40 MG PO DAILY, (Reported) Potassium Chloride 20 Meq Tab.er.prt, 20 MEQ PO DAILY PRN for WHEN TAKING FUROSEMIDE, (Reported) Prasugrel HCl 10 Mg Tablet, 10 MG PO DAILY, (Reported) Sacubitril/Valsartan 1 Each Tablet, 1 TAB PO BID, (Reported) Patient Home Medication List Home Medication List Reviewed: Yes Past Pwtcwbz-Saxiyo-Dofcfc Hx Patient Social History Marrital Status: Number of Children: 3 Number of living children: 2 Living Status: LIVES [facility] IN THEIR HOME Employed/Student: retired Alcohol Use: Occasionally Uses Recreational Drug Use: No Smoking Status: Never a Smoker 2nd Hand Smoke Exposure: No Physical Abuse Screen: No Sexual Abuse: No Recent Foreign Travel: No Contact w/other who traveled: No Recent Hopitalizations: No Recent Infectious Disease Expo: No Immunizations Up To Date Tetanus Booster (TDap): Unknown Pediatric: No Date of Pneumonia Vaccine: Feb 14, 2017 Date of Influenza Vaccine: Nov 15, 2017 Seasonal Allergies Seasonal Allergies: Yes Surgeries Yes (bilat TKR, bilat carpal tunnel, R ROTATOR CUFF) Bladder Surgery, Coronary Stent, Hysterectomy, Orthopedic, Tonsillectomy Respiratory No Currently Using CPAP: No Currently Using BIPAP: No Cardiovascular Yes (aortic stenosis, carotid stenosis, cardiac stent) Coronary Artery Disease, High Cholesterol, Hypertension, Peripheral Vascular, Valvular Heart Disease Neurological Yes Genitourinary No UTI-Chronic Gastrointestinal Yes Hiatal Hernia Musculoskeletal Yes (CARPAL TUNNEL) Arthritis, Chronic Back Pain Endocrine History of Endocrine Disorders: Yes Endocrine Disorders: Diabetes, Non-Insulin dep Are Your Blood Sugars Over 250: No HEENT History of HEENT Disorders: No Loss of Vision: Denies Hearing Impairment: Denies Cancer No Psychosocial History of Psychiatric Problem: Yes Behavioral Health Disorders: Anxiety, Depression Integumentary History of Skin or Integumenta: No Blood Transfusions History of Blood Disorders: No Reviewed Nursing Assessment Reviewed/Agree w Nursing PMH: Yes Family Medical History Significant Family History: Heart Disease, Hypertension Family Hx: Patient reports no known family medical history. Review of Systems Constitutional: No fever; malaise, weakness EENTM: No hearing loss, No hoarseness, No throat pain, No throat swelling Respiratory: cough, dyspnea on exertion, short of breath Cardiovascular: No chest pain; Hx of Intervention; No palpitations; vascular heart diseas Gastrointestinal: No abdominal pain; hematemesis; No nausea; vomiting Genitourinary: no symptoms reported Musculoskeletal: No back pain, No muscle pain, No muscle weakness Skin: no symptoms reported Psychiatric/Neurological: Denies Anxiety, Denies Depressed, Denies Weakness All Other Systems Reviewed Negative Unless Noted: Yes Physical Exam Vital Signs Vital Signs - First Documented 12/02/17 12/02/17 12/02/17 03:27 05:45 18:31 Temp 99.1 Pulse 92 Resp 22 B/P (MAP) 127/62 (83) Pulse Ox 94 O2 Delivery Room Air O2 Flow Rate 2.00 FiO2 100 Capillary Refill : Less Than 3 Seconds Height, Weight, BMI Height: 5'3.00" Weight: 166lbs. 1.0oz. [id number]; 29.4 BMI Method:Stated General Appearance: No Apparent Distress, WD/WN Eyes: Bilateral Eye Normal Inspection, Bilateral Eye PERRL, Bilateral Eye EOMI HEENT: PERRL/EOMI, Pharynx Normal Neck: Full Range of Motion, Supple Respiratory: Chest Non Tender, Crackles, Decreased Breath Sounds (THROUGHOUT RIGHT LUNG WITH CRACKLES ON ENTIRE RIGHT SIDE AND LEFT BASE) Cardiovascular: Regular Rate, Rhythm, Normal Peripheral Pulses, Systolic Murmur (III/ SABRINA), Other (NORMAL CAPILLARY REFILL TIME) Gastrointestinal: Normal Bowel Sounds, No Organomegaly, No Pulsatile Mass, Non Tender, Soft Rectal: Deferred Back: Normal Inspection, No Vertebral Tenderness Extremity: Normal Capillary Refill, Normal Inspection, Non Tender, No Calf Tenderness, No Pedal Edema Neurologic/Psychiatric: Alert, Oriented x3, No Motor/Sensory Deficits, Normal Mood/Affect, packing machine can feeder II-XII Norm as Tested Skin: Normal Color, Warm/Dry Lymphatic: No Adenopathy Assessment/Plan Assessment and Plan SEPSIS PNEUMONIA RESPIRATORY DISTRESS HYPERTENSION HEMOPTYSIS DIABETES MELLITUS CORONARY ARTERY DISEASE ATRIAL FIBRILLATION SEPSIS WITH PNEUMONIA AND RESPIRATORY DISTRESS - OXYGEN VIA NASAL CANNULA, SEPSIS PROTOCOL INITIATED, MONITOR SERIAL CHEST XRAYS - PLANNING ON BRONCHOSCOPY TOMORROW MORNING. HYPERTENSION - RESUMED HOME MEDICATIONS HEMOPTYSIS - SUPPORTIVE CARE, BRONCHOSCOPY PLANNED, IF NEGATIVE, THEN LIKELY WILL PROCEED TO EGD DIABETES MELLITUS - WILL INITIATE ICU HYPERGLYCEMIA PROTOCOL UNTIL PT TAKING NORMAL FOOD INTAKE AND THEN WILL CONSIDER RESUMPTION OF NORMAL HOME REGIMEN. CORONARY ARTERY DISEASE - CONSULT TO CARDIOLOGY HAS BEEN PLACED AFIB - CONSULT TO CARDIOLOGY. Admission Diagnosis SEPSIS PNEUMONIA RESPIRATORY DISTRESS HYPERTENSION HEMOPTYSIS DIABETES MELLITUS CORONARY ARTERY DISEASE Admission Status: Inpatient Order (span 2 midnights) Reason for Inpatient Admission: PT IS ACUTELY ILL AND WILL NEED SEVERAL MIDNIGHTS IN THE HOSPITAL TO STABILIZE HER SYMPTOMS, AND FURTHER INVESTIGATE THE CAUSE OF BLEEDING AND ACUTE PULMONARY DISTRESS Clinical Quality Measures DVT/VTE Risk/Contraindication: Risk Factor Score Per Nursin RFS Level Per Nursing on Admit: 3=High KURTIS NICOLE MD Dec 02, 2017 08:47
[2017-12-02] MEDS ORDERED: ESCI10TA55 PO (09:27)
[2017-12-02] MEDS ORDERED: DIGO250T PO (09:27)
[2017-12-02] MEDS ORDERED: INSU100I34 SC (09:27)
[2017-12-02] MEDS ORDERED: NITR0.4T39 SL (09:27)
[2017-12-02] MEDS ORDERED: METO-395 PO (09:27)
--- NOTE | 2017-12-02 09:28 | Consultation-Cardiology ---
HPI-Cardiology Cardiology Consultation: Date of Consultation 12/02/17 Time Seen by a Provider: 09:15 Date of Admission Attending Physician Kurtis Nicole MD Admitting Physician Kurtis Nicole MD Consulting Physician DEMARIO LOPEZ MD, MA, FACP, FACC, FSCAI, CCDS HPI: Chief Complaint: CC: Blood in phlegm, blood clots with stools Ms. Momin is a 77 year old female admitted to ICU 11 from the ED. She reports she was in her usual state of health. She states she was very active yesterday cleaning her house and was able to do so without difficulty. She reports she was tired at the end of the day and went to bed early. She woke up around midnight to use the bathroom. She did so without difficulty, but she reports when she returned back to bed and laid down she began to feel short of breath, nauseated and started coughing. She sat up on the side of the bed and the nausea worsened. She went to the kitchen and coughed up/threw up in to the trash can. She then went back to bed, but continued to cough and feel nauseated. She then went to the bathroom and coughed up into the stool. She reports she noticed small bright red clots in the stool. She reports she went back to bed and continued to feel short of breath and cough. She then had family bring her to the ED. She continues to have hemoptysis. She reports she feels tired this morning. No c/o CP, palpitations, syncope, near syncope or LE edema. She denies any nausea this morning. She denies any fever or chills. She denies any diarrhea. Review of Systems-Cardiology Review of Systems Constitutional: No chills, No fever; tiredness Eyes: No vision change Ears/Nose/Throat: No epistaxis, No recent hearing loss Respiratory: As described under HPI Cardiovascular: As described under HPI Gastrointestinal: No nausea, No vomiting Genitourinary: No dysuria, No hematuria Musculoskeletal: back pain, joint pain (right shoulder) Skin: No rash, No ulcerations Psychiatric/Neurological: No seizure, No focal weakness, No syncope Hematologic: No bleeding abnormalities All Other Systems Reviewed Negative Unless Noted: Yes RAX-Mkevjo-Khtebv Hx Patient Social History Alcohol Use: Occasionally Uses Recreational Drug Use: No Smoking Status: Never a Smoker 2nd Hand Smoke Exposure: No Recent Foreign Travel: No Recent Infectious Disease Expo: No Hospitalization with Isolation: Denies Physical Abuse Screen: No Sexual Abuse: No Immunizations Up To Date Tetanus Booster (TDap): Unknown Date of Pneumonia Vaccine: Feb 14, 2017 Date of Influenza Vaccine: Nov 15, 2017 Past Medical History PMH As described under Assessment. Family Medical History Family Medical History: Reports fam h/o early CAD Family History: Patient reports no known family medical history. Allergies and Home Medications Allergies Coded Allergies: canagliflozin (Verified Allergy, Severe, LIGHT HEADED/HEADACHES/UTI/FELT LIKE SHE WOULD PASS OUT, 02/18/17) liraglutide (Verified Allergy, Severe, RAPID HEART RATE/HEADACHE/DIZZINESS , 02/18/17) Zzmfugt-Xqr-Jek Reductase Inhibitor (Verified Adverse Reaction, Severe, MUSCLE PAIN, 02/18/17) Home Medications Acetaminophen/Diphenhydramine 1 Each Tablet, 1 TAB PO HS, (Reported) Apixaban 5 Mg Tablet, 5 MG PO BID, (Reported) Diclofenac Sodium 100 Gm Gel..gram., 100 GM TP TID Prescribed by: TUNDE BARROW on 08/25/17635 Digoxin 250 Mcg Tablet, 0.25 MG PO DAILY Prescribed by: KURTIS NICOLE on 05/26/17814 Escitalopram Oxalate 5 Mg Tablet, 5 MG PO DAILY, (Reported) Ezetimibe 10 Mg Tablet, 10 MG PO HS, (Reported) Fluticasone Propionate 16 Gm [place].susp, 1 SPRAY NS BID PRN for ALLERGIES, ( Reported) Furosemide 40 Mg Tablet, 40 MG PO DAILY Prescribed by: KURTIS NICOLE on 05/26/17814 Gabapentin 600 Mg Tablet, 600 MG PO TID, (Reported) Insulin Glargine,Hum.rec.anlog 100 Unit/1 Ml Insuln.pen, 10 UNIT SQ DAILY, ( Reported) Levothyroxine Sodium 50 Mcg Tablet, 50 MCG PO DAILY, (Reported) Metformin HCl 500 Mg Tablet, 500 MG PO HS, (Reported) Metformin HCl 500 Mg Tablet, 750 MG PO 0700,1200, (Reported) TAKES 1 & 1/2 (500MG) TABLETS Methylprednisolone 4 Mg Tab.ds.pk, 4 MG PO UD Prescribed by: TUNDE BARROW on 08/25/17635 Metoprolol Succinate 100 Mg Tab.er.24h, 100 MG PO DAILY Prescribed by: KURTIS NICOLE on 05/26/17814 [place] 3 Polyunsat Fatty Acids 1,000 Mg Cap, 1,000 MG PO DAILY, (Reported) Pantoprazole Sodium 40 Mg Tablet.dr, 40 MG PO DAILY, (Reported) Potassium Chloride 20 Meq Tab.er.prt, 20 MEQ PO DAILY@0700 Prescribed by: KURTIS NICOLE on 05/26/17814 Prasugrel HCl 10 Mg Tablet, 10 MG PO DAILY, (Reported) Sacubitril/Valsartan 1 Each Tablet, 1 TAB PO BID, (Reported) Tramadol HCl 50 Mg Tablet, 50 MG PO Q4H Prescribed by: TUNDE BARROW on 08/25/17635 [Nitroglycerin] 0.4 MG BTL, 0 MG SL PRN PRN for CHEST PAIN Prescribed by: KURTIS NICOLE on 05/26/17814 Patient Home Medication List Home Medication List Reviewed: Yes Physical Exam-Cardiology Physical Exam Vital Signs/I&O 12/02/17 12/02/17 12/02/17 12/02/17 03:27 05:45 05:50 06:01 Temp 99.1 99.0 Pulse 92 97 93 Resp 22 22 B/P (MAP) 127/62 (83) 128/67 Pulse Ox 94 93 O2 Delivery Room Air Nasal Cannula Nasal Cannula O2 Flow Rate 2.00 2.00 12/02/17 12/02/17 12/02/17 12/02/17 06:01 06:15 06:30 06:45 Temp 99.7 Pulse 92 89 93 88 Resp 22 21 20 20 B/P (MAP) 135/60 (85) 137/65 (89) 109/53 (71) 119/77 (91) Pulse Ox 94 93 95 94 O2 Delivery Nasal Cannula Nasal Cannula Nasal Cannula Nasal Cannula O2 Flow Rate 2.00 2.00 2.00 2.00 12/02/17 12/02/17 12/02/17 07:00 07:00 08:00 Temp 99.6 Pulse 89 89 93 Resp 8 20 B/P (MAP) 117/74 (88) 139/65 (89) Pulse Ox 94 95 O2 Delivery Nasal Cannula Nasal Cannula O2 Flow Rate 2.00 2.00 Capillary Refill : Less Than 3 Seconds Constitutional: AAO x 3, well-developed, well-nourished HEENT: PERRL, hearing is well preserved, oral hygience is good Neck: No carotid bruit; carotid pulses are 2 + bilaterally Respiratory: No accessory muscle use, No respiratory distress; chest expansion is symmetric, chest is bilaterally symmetric, other (diminished throughout; R>L) Cardiovascular: regular rate-rhythm; No JVD; S1 and S2 Gastrointestinal: No tender; soft, round Rectal: deferred Extremities: no lower extremity edema bilateral Neurologic/Psychiatric: grossly intact, power is 5/5 both on sides Skin: normal color, warm/dry; No rash, No ulcerations Data Review Labs Laboratory Tests 12/02/17 03:45: White Blood Count 6.0, Red Blood Count 4.01L, Hemoglobin 11.7, Hematocrit 35, Mean Corpuscular Volume 87, Mean Corpuscular Hemoglobin 29, Mean Corpuscular Hemoglobin Concent 34, Red Cell Distribution Width 13.4, Platelet Count 377, Mean Platelet Volume 9.8, Neutrophils (%) (Auto) 78H, Lymphocytes (%) (Auto) 19 , Monocytes (%) (Auto) 2, Eosinophils (%) (Auto) 1, Basophils (%) (Auto) 0, Neutrophils # (Auto) 4.7, Lymphocytes # (Auto) 1.1, Monocytes # (Auto) 0.1, Eosinophils # (Auto) 0.1, Basophils # (Auto) 0.0, Prothrombin Time 13.5, INR Comment 1.0, Activated Partial Thromboplast Time 32, Sodium Level 139, Potassium Level 3.7, Chloride Level 102, Carbon Dioxide Level 24, Anion Gap 13, Blood Urea Nitrogen 23H, Creatinine 1.13, Estimat Glomerular Filtration Rate 47 , BUN/Creatinine Ratio 20, Glucose Level 179H, Lactic Acid Level 2.24*H, Calcium Level 9.1, Corrected Calcium 9.0, Total Bilirubin 0.4, Aspartate Amino Transf (AST/SGOT) 39H, Alanine Aminotransferase (ALT/SGPT) 30, Alkaline Phosphatase 70, Total Protein 6.5, Albumin 4.1 12/02/17 06:11: Lactic Acid Level 2.61*H Microbiology 12/02/17 Influenza Types A,B Antigen (PINA) - Final, Complete A/P-Cardiology Assessment/Admission Diagnosis Pneumonia with sepsis - management per Medical and Pulmonary Services Hemoptysis, likely due to pneumonia Blood clots in stools, suggestive of GI bleed or swallowed blood from hemoptysis. W/u for this is with the Med Svce Chronic diastolic CHF, currently clinically compensated PAF, first documented on tele strips at [facility] in early 2016. Currently in NSR H/o ischemic cm. LVEF on 02/18/17 was 35%. Echo of 05/26/17: LVEF 50%, grade 3 rehman dysfunction, MAC, mild MR, mod to severe , PASP 40-45 mmHg CAD. S/p prox LAD stenting by Dr Obrien at [facility] on 02/20/17: Promus 2.5x24. Cath on 02/18/17 prior to cor stenting showed dual LAD, one of which was proximally occluded and the other was severely diseased. Rest of the cors had mod dz MPI of 01/12/17: anteroapical infarction w/o significant ischemia; LVEF 39% Dizziness and vertigo, improved after reduction of anti-htn and Invokana treatment in early Apr 2015. MRI head on 05/10/15 (Dr Mariano) did not show lesions other than possibility of chronic microvascular disease Valvular heart disease. Cath of 02/18/17 showed mod MR and a gradient across AoV of 25-30 mmHg. Mod with valve area 1.4 cm sq and mean gradient across aortic valve of 23 mmHg on echo of 01/08/17. Subsequent echo as noted above DM II CKD stage 3, likely diabetic nephropathy. eGFR on 05/25/17 is 44 Hyperlipidemia, but has intolerance to statins (severe joint pains) Hypothyroidism, treated with thyroid replacement therapy. TSH normal (2.19) on Bilateral leg and foot discomfort which has been diagnosed as neuropathy. Normal bilat EDDY in June 2014 Mild bilat carotid arterial disease on carotid u/s of 06/08/17 Abn ECG. ECG of 05/13/17: NSR, old ASMI H/o surgeries: S/p hysterectomy w/o oophorectomy; S/p bilateral knee replacement ; H/o R rotator cuff surgery Discussion and Recomendations * Complex management due to multiple comorbidities * OK to hold Eliquis for now d/t hemoptysis and blood in stools until source is determined and treated * Last stenting was greater than 6 months ago; OK to hold Effient, but we do advise low dose ASA if OK with Pulmonary/Medical Services d/t CAD with stenting * Continue antihypertensives * Monitor labs * Further recs will be based on her hospital course * We would like to thank pulmonary and medical services for this consult Clinical Quality Measures DVT/VTE Risk/Contraindication: Risk Factor Score Per Nursin RFS Level Per Nursing on Admit: 3=High DEMARIO LOPEZ MD FACP FAC CCDS Dec 02, 2017 09:28
[2017-12-02 09:45] LABS: BILIRUBIN,URINE NEGATIVE (NEGATIVE); CLARITY,URINE CLEAR; COLOR,URINE YELLOW; GLUCOSE, URINE (UA) NEGATIVE (NEGATIVE); KETONES,URINE NEGATIVE (NEGATIVE); LEUKOCYTE ESTERASE ,URINE 2+ (NEGATIVE); NITRITE,URINE POSITIVE (NEGATIVE); PH,URINE 6 (5-9); PROTEIN,URINE NEGATIVE (NEGATIVE); UROBILINOGEN,URINE NORMAL (NORMAL)
[2017-12-02] MEDS ORDERED: ACET-2267 PO (09:48)
[2017-12-02] MEDS ORDERED: DICL100G18 TP (09:48)
[2017-12-02] MEDS ORDERED: POTA20TA15 PO (09:48)
[2017-12-02] MEDS ORDERED: FURO40TA4 PO (09:48)
[2017-12-02 09:56] LABS: BACTERIA,URINE MODERATE /HPF
[2017-12-02] MEDS: RT-ALBUTEROL/IPRATROPIUM 3 ML (DUONEB) VIAL INH SCH ×3 (10:36→20:36)
[2017-12-02] MEDS: ACETAMINOPHEN 325 MG TABLET PO PRN (11:43)
[2017-12-02] MEDS: PIPERACILLIN/TAZO 4.5 GM/NS 100 ML IV SCH ×4 (13:22→21:18)
[2017-12-02] MEDS ORDERED: DIGOXIN 0.25 MG (LANOXIN) TAB PO SCH (17:15)
[2017-12-02] MEDS ORDERED: meTOprolol SUCCINATE 100 MG (TOPROL XL) TAB PO SCH (17:15)
[2017-12-02] MEDS: ONDANSETRON 4 MG/2 ML (SDV) Z0FRAN IV PRN (17:20)
[2017-12-02] MEDS ORDERED: PROPOFOL DRIP (ICU) 100 ML IV ONE ×2 (17:27→20:22)
[2017-12-02] MEDS ORDERED: SUCCINYLCHOLINE INJ 100 MG/5 ML SYR ONE (18:00)
--- NOTE | 2017-12-02 18:13 | Anesthesia-Procedure Note ---
Procedures/Interventions Procedure Start/Stop/Diagnosis Date of Procedure: Dec 02, 2017 Start Time: 17:45 Referring Physician: Stormy Preprocedural Diagnosis: Respiratory Failure, Pneumonia Brief History Called to ICU 11 by clubhouse manager for emergent intubation of patient in respiratory distress. Pt is scheduled to have a Bronchoscopy in AM. ASA3E. HR 145 Sats 97% on O2 per NC. Brief HX obtained, explained procedure to patient and family at bedside. Pre oxygenated with 100% per RT w ambu. Propofol 100mg and Anectice 80 mg X1 DL. Grade 2 view with Contreras. Airway was edematous and red. Passed #8.0 ETT BS=B/L sats stayed 95%. ETCO2 present. Report to RN and left pt in care of RT. Settings per Dr. Burrows. Stop Time: 17:55 Intubation RSI: Yes 100% pre-Ox, [id number]: Yes Intubation Method: orotracheal Videoscope used: Yes Medications: Propofol, Succinylcholine Mask Ventilation: positive Positive End Tide CO2: Yes Breath Sounds after Intubation: bilateral-equal Intubated with ease: Yes Intubation Complications: no complications Post Intubation Xray-done: No DARA TENORIO CRNA Dec 02, 2017 18:13
--- NOTE | 2017-12-02 18:57 | Diagnostic Imaging Report ---
INDICATION: Respiratory distress. EXAMINATION: Single view of the chest was obtained. FINDINGS: An ET tube tip is placed, tip overlies the midthoracic trachea in good position. OG catheter goes into the stomach. There is bilateral pulmonary infiltrates, greater right than left, increased in severity from earlier the same date. IMPRESSION: Support apparatus projects in good alignment. Worsened bilateral greater right pulmonary infiltrates. Dictated by: Dictated on workstation # [id number]
[2017-12-02] MEDS ORDERED: meTOprolol 5 MG/5 ML (LOPRESSOR) VIAL ONE (19:09)
[2017-12-02 20:45] LABS: ABG BASE EXCESS -2.4 MMOL/L (-2.5-2.5); ABG OXYGEN SATURATION 100 % (94-100); ABG PCO2 36 MMHG (35-45); ABG PO2 404 MMHG (79-93); ABG TCO2 22.9 MMOL/L (21.0-31.0)
[2017-12-02 20:48] LABS: ALLENS TEST POSITIVE; INSPIRED O2 100%; PATIENT TEMP 97.8; VENTILATOR YES
[2017-12-02] MEDS ORDERED: fentaNYL INJECTION 100 MCG/2 ML AMP ONE (21:25)
[2017-12-02] MEDS: fentaNYL INJECTION 100 MCG/2 ML AMP IV PRN (21:45)
[2017-12-02] MEDS: PROPOFOL DRIP (ICU) 100 ML IV SCH ×2 (22:24→22:25)
[2017-12-02] MEDS ORDERED: meTOprolol 5 MG/5 ML (LOPRESSOR) VIAL IV PRN (22:30)
[2017-12-03] VITALS (33 sets, daily range): BP systolic 83–139; BP diastolic 33–74
[2017-12-03] MEDS: fentaNYL INJECTION 100 MCG/2 ML AMP IV PRN ×7 (00:16→14:48)
[2017-12-03] MEDS: PROPOFOL DRIP (ICU) 100 ML IV SCH ×5 (00:28→18:24)
[2017-12-03] MEDS: inSUlin ASPART (NovoLOG) 1 UNIT/0.01 ML (CHARGE PER UNIT) SC SCH ×5 (00:29→23:42)
[2017-12-03] MEDS: NS IV 1000 ML 1,000 ML IV SCH ×4 (00:42→19:20)
[2017-12-03] MEDS: PIPERACILLIN/TAZO 4.5 GM/NS 100 ML IV SCH ×6 (02:50→18:18)
[2017-12-03 03:25] LABS: BASOPHILS % (AUTO) 0 % (0-10); EOSINOPHILS % (AUTO) 0 % (0-10); HEMATOCRIT 30 % (35-52); HEMOGLOBIN 9.4 G/DL (11.5-16.0); LYMPHOCYTES # (AUTO) 1.3 X 10^3 (1.0-4.0); LYMPHOCYTES % (AUTO) 12 % (12-44); MEAN CORPUSCULAR HEMOGLOBIN 28 PG (25-34); MEAN CORPUSCULAR HGB CONC 31 G/DL (32-36); MEAN CORPUSCULAR VOLUME 90 FL (80-99); MONOCYTES # (AUTO) 0.3 X 10^3 (0.0-1.0); MONOCYTES % (AUTO) 3 % (0-12); NEUTROPHILS % (AUTO) 85 % (42-75); PLATELET COUNT 309 10^3/uL (130-400); RED BLOOD COUNT 3.33 10^6/uL (4.35-5.85); RED CELL DISTRIBUTION WIDTH 14.1 % (10.0-14.5); WHITE BLOOD COUNT 10.7 10^3/uL (4.3-11.0)
[2017-12-03 03:27] LABS: ABG BASE EXCESS -3.9 MMOL/L (-2.5-2.5); ABG OXYGEN SATURATION 97 % (94-100); ABG PCO2 44 MMHG (35-45); ABG PO2 92 MMHG (79-93)
[2017-12-03 03:29] LABS: ALLENS TEST YES-POS; INSPIRED O2 30%; PATIENT TEMP 97.5; VENTILATOR YES
[2017-12-03 03:46] LABS: ALBUMIN 3.3 GM/DL (3.2-4.5); BILIRUBIN,TOTAL 0.3 MG/DL (0.1-1.0); CALCIUM 7.8 MG/DL (8.5-10.1); CREATININE SERUM 1.18 MG/DL (0.60-1.30); MAGNESIUM 1.9 MG/DL (1.8-2.4); PHOSPHORUS 4.2 MG/DL (2.3-4.7); POTASSIUM 3.9 MMOL/L (3.6-5.0); TOTAL PROTEIN 5.5 GM/DL (6.4-8.2)
[2017-12-03] MEDS: MAGNESIUM 1 GM/100 ML IVPB 100 ML IV SCH ×3 (04:03→18:13)
[2017-12-03] MEDS: KCL 20 MEQ TAB (K-DUR) PO SCH (04:03)
[2017-12-03] MEDS: POTASSIUM CL 10MEQ/50ML IVPB 50 ML IV SCH (04:03)
[2017-12-03] MEDS: PANTOPRAZOLE 40 MG (PROTONIX) TAB PO SCH (04:04)
[2017-12-03] MEDS ORDERED: NS IV 1000 ML 1,000 ML IV SCH (05:15)
[2017-12-03] MEDS ORDERED: NS (IVPB) 100 ML ONE (06:07)
[2017-12-03] MEDS ORDERED: fentaNYL (OMNICELL DRIP KIT ONLY) 250 MCG/5 ML AMP ONE (06:07)
[2017-12-03] MEDS ORDERED: MIDAZOLAM 5 MG/5 ML (VERSED) VIAL ONE (06:20)
--- NOTE | 2017-12-03 06:33 | Pulmonary Progress Note ---
Subjective Time Seen by a Provider: 06:41 Subjective/Events-last exam Pt is on ventilator and appears comfortable. Sepsis Event Evaluation Height, Weight, BMI Height: 5'3.00" Weight: 175lbs. 2.0oz. 79.850649gw; 29.4 BMI Method:Stated Focused Exam Lactate Level 12/02/17 03:45: Lactic Acid Level 2.24*H 12/02/17 06:11: Lactic Acid Level 2.61*H 12/03/17 03:13: Lactic Acid Level 4.63*H Lactic Acid Level Laboratory Tests Test 12/03/17 03:13 Lactic Acid Level 4.63 MMOL/L (0.50-2.00) *H Exam Exam Vital Signs Date Time Temp Pulse Resp B/P (MAP) Pulse Ox O2 Delivery O2 Flow Rate FiO2 12/03/17 06:08 79 18 99 30 12/03/17 05:22 104/61 12/03/17 04:13 82 17 95 30 12/03/17 04:00 94 Mechanical Ventilator 30 12/03/17 04:00 82 13 91/48 (62) 94 Mechanical Ventilator 30.00 12/03/17 03:56 96.8 12/03/17 03:00 105 12 128/72 (90) 93 Mechanical Ventilator 30.00 12/03/17 02:04 88 15 97 40 12/03/17 02:00 89 12 125/59 (81) 98 Mechanical Ventilator 30.00 12/03/17 01:00 91 12 100/52 (68) 97 Mechanical Ventilator 30.00 12/03/17 01:00 90 12/03/17 00:58 Mechanical Ventilator 30.00 12/03/17 00:37 91 18 98 40 12/03/17 00:28 142/73 12/03/17 00:00 96 Mechanical Ventilator 100 12/03/17 00:00 93 18 104/58 (73) 97 Mechanical Ventilator 40.00 12/02/17 23:31 96.8 12/02/17 22:25 103/60 12/02/17 22:24 210/110 12/02/17 22:00 100 17 104/60 (75) Mechanical Ventilator 40.00 12/02/17 21:41 104 16 96 50 12/02/17 21:41 109 14 103/59 (74) Mechanical Ventilator 40.00 12/02/17 21:00 111 23 121/65 (83) Mechanical Ventilator 50.00 12/02/17 20:57 97 23 99 100 12/02/17 20:30 97.9 12/02/17 20:00 100 19 132/75 (94) Mechanical Ventilator 100.00 12/02/17 20:00 96 Mechanical Ventilator 100 12/02/17 19:49 99.0 12/02/17 19:00 122 12/02/17 19:00 122 25 120/72 (88) Mechanical Ventilator 100.00 12/02/17 18:31 149 31 97 100 12/02/17 18:15 131 24 140/81 (100) 98 Mechanical Ventilator 100.00 12/02/17 18:00 138 25 175/91 (119) 97 Mechanical Ventilator 100.00 12/02/17 17:14 80 Nasal Cannula 4.00 12/02/17 17:00 126 32 128/72 (90) 85 Nasal Cannula 2.00 12/02/17 16:00 99.1 93 29 121/57 (78) 91 Nasal Cannula 2.00 12/02/17 15:00 92 22 124/62 (82) 93 Nasal Cannula 2.00 12/02/17 14:00 Nasal Cannula 2.00 12/02/17 13:47 89 12/02/17 12:28 99.2 12/02/17 11:00 94 20 119/59 (79) 95 Nasal Cannula 2.00 12/02/17 10:36 96 Nasal Cannula 2.00 12/02/17 10:00 92 21 118/112 (114) 93 Nasal Cannula 2.00 12/02/17 09:00 96 19 111/59 (76) 94 Nasal Cannula 2.00 12/02/17 08:00 Nasal Cannula 2.00 12/02/17 08:00 99.6 93 20 139/65 (89) 95 Nasal Cannula 2.00 12/02/17 07:00 89 8 117/74 (88) 94 Nasal Cannula 2.00 12/02/17 07:00 89 12/02/17 06:45 88 20 119/77 (91) 94 Nasal Cannula 2.00 12/02/17 06:30 93 20 109/53 (71) 95 Nasal Cannula 2.00 I & O 12/03/17 07:00 Intake Total 3360 ml Output Total 2335 ml Balance 1025 ml Height & Weight Height: 5'3.00" Weight: 175lbs. 2.0oz. 79.144986xl; 29.4 BMI Method:Stated General Appearance: No Apparent Distress, WD/WN HEENT: PERRL/EOMI, Pharynx Normal Neck: Full Range of Motion, Supple Respiratory: Chest Non Tender, Crackles, Decreased Breath Sounds (THROUGHOUT RIGHT LUNG WITH CRACKLES ON ENTIRE RIGHT SIDE AND LEFT BASE) Cardiovascular: Regular Rate, Rhythm, Normal Peripheral Pulses, Systolic Murmur (III/ SABRINA), Other (NORMAL CAPILLARY REFILL TIME) Capillary Refill: Less Than 3 Seconds Extremity: Normal Capillary Refill, Normal Inspection, Non Tender, No Calf Tenderness, No Pedal Edema Neurologic/Psychiatric: Alert, Oriented x3, No Motor/Sensory Deficits, Normal Mood/Affect, manager land II-XII Norm as Tested Skin: Normal Color, Warm/Dry Lymphatic: No Adenopathy Results Lab Laboratory Tests 12/02/17 03:45 12/03/17 03:13 Assessment/Plan Assessment/Plan Acute respiratory failure -Pt was intubated last night secondary to worsening respiratory status -Pt is requiring max propofol -Will add Fentanyl gtt Pneumonia r/o early sepsis (no leukocytosis currently Tm is 99.7) -Zosyn and Vanco -Influenza is negative -IVF -Michele cultures pending -Check urine strep and legionella ag Hemoptysis with blood clots -Hold eliquis -Plan for bronchoscopy this AM Hypotension probably secondary to sedation -Repeat CBC Metabolic lactic acidosis secondary to hypotension vs other. -IVF -Repeat Anemia -repeat H&H and then Q6 for now Hx of moderate aortic stenosis -Check echocardiogram r/o vegetation Dehydration -IVF PAF hx -Will hold eliquis for now secondary to hemoptysis Diastolic CHF hx - currently appears stable -Monitor CAD DM II No hx of tobacco use 60min spent with patient, medical team, and family discussing current status and plan of care. and 2 daughters at bedside. I answered all questions and concerns. UPDATE: S/P BRONCHOSCOPY. PT DOES HAVE INFLAMED AIRWAYS HOWEVER NO OBVIOUS SIGNS OF BLEEDING. WILL CONSULT SURGERY FOR EGD. WILL ALSO ADD SOLUMEDROL SECONDARY TO INFLAMED AIRWAYS. Critical Care: Critically Ill Patient Time spent with patient (mins): 60 NICOLA MCCLELLAN DO Dec 03, 2017 06:33
[2017-12-03 06:35] LABS: INR 1.3 (0.8-1.4); PROTHROMBIN TIME PATIENT 15.7 SEC (12.2-14.7)
[2017-12-03] MEDS ORDERED: MIDAZOLAM 2 MG/2 ML (VERSED) VIAL IM ONE (06:40)
[2017-12-03] MEDS ORDERED: fentaNYL INJECTION 100 MCG/2 ML AMP IVP PRN (06:40)
[2017-12-03] MEDS: fentaNYL INJECTION 1,250 MCG in NS (IVPB) 250 ML IV SCH ×2 (07:00→07:44)
--- NOTE | 2017-12-03 07:09 | Pulmonary Procedures ---
Pulmonary Procedures Date of Procedure Date of Service: Dec 03, 2017 Bronch Bronchoscopy with bronchoalveolar lavage (BAL), transbronchial washes and, brushes. Preop DX PNEUMONIA HEMOPTYSIS Postop DX: AIRWAY INFLAMMATION HOWEVER NO SIGNS OF SIGNS OF HEMOPTYSIS. Complications: none After informed consent obtained and formal time out pt was sedated using PROPOFOL AND Versed. Bronchoscope was advanced through the ET TUBE. 1% lidocaine was used to anesthetize vocal cords, epiglottis, niesha, and left/ right main stem bronchus. An anatomical tour was undertaken down to the segmental bronchi bilaterally. No endobronchial lesions noted. From the DANIEL a bronchoalveolar lavage (BAL), transbronchial washes were obtained. Pt tolerated procedure well. No complications noted. Stat CXR is pending. NICOLA MCCLELLAN DO Dec 03, 2017 07:09
[2017-12-03] MEDS ORDERED: EPINEPHrine INJECTION 1 MG/ML AMP IJ ONE (07:29)
[2017-12-03] MEDS ORDERED: LIDOCAINE PF 1% 5 ML SYRINGE (ANLIKER/BAILEY ONLY) INJ ONE (07:29)
[2017-12-03] MEDS: RT-ALBUTEROL/IPRATROPIUM 3 ML (DUONEB) VIAL INH SCH ×3 (08:20→18:42)
[2017-12-03] MEDS: VANCOMYCIN 1250 MG/NS 250 ML IVPB IV SCH ×2 (08:22)
--- NOTE | 2017-12-03 08:33 | Anesthesia-Procedure Note ---
Procedures/Interventions Procedure Start/Stop/Diagnosis Date of Procedure: Dec 03, 2017 Start Time: 08:05 Referring Physician: Stormy Stop Time: 08:20 Arterial Line Arterial Line Catheter: 20G Type: Brachial Location: Right Procedure: prepped, draped in sterile fashion, good wave-form was obtained, patient tolerated procedure well, no immediate complications, post procedure area cleaned, post procedure dressing applied RAMSEY SIERRA CRNA Dec 03, 2017 08:33
--- NOTE | 2017-12-03 08:33 | Diagnostic Imaging Report ---
Portable erect AP chest at 3:26. Indication: Respiratory distress. The appearance of the chest has improved somewhat since 12/02/2017 as the right lung does seem somewhat better aerated. There are still diffuse alveolar/interstitial pulmonary infiltrates in the right lung. The central pulmonary vascularity on the left and the left perihilar infiltrate is less striking as well. The heart is stable in size. The mediastinum is not widened. The osseous structures are intact. The supportive tubes and lines remain in good position. Impression: The appearance of the chest has improved somewhat since the prior exam as the right lung base and left perihilar region are slightly better aerated. A followup study would be recommended for continued evaluation. Dictated by: Dictated on workstation # [id number]
[2017-12-03] MEDS ORDERED: ASPIRIN 325 MG (5 GR) TABLET NG SCH (09:00)
[2017-12-03] MEDS: PANTOPRAZOLE 40 MG (PROTONIX) VIAL IV SCH (09:19)
--- NOTE | 2017-12-03 09:26 | Progress Note-Cardiology ---
Cardiology SOAP Progress Note Subjective: Worsening of resp status yesterday leading to intubation and mech vent Currently on mech vent and sedated and unable to answer questions Objective: I&O/Vital Signs 12/02/17 12/02/17 12/02/17 12/02/17 21:41 21:41 22:00 22:24 Pulse 109 104 100 Resp 14 16 17 B/P (MAP) 103/59 (74) 104/60 (75) 210/110 Pulse Ox 96 O2 Delivery Mechanical Ventilator Mechanical Ventilator O2 Flow Rate 40.00 40.00 FiO2 50 12/02/17 12/02/17 12/03/17 12/03/17 22:25 23:31 00:00 00:00 Temp 96.8 Pulse 93 Resp 18 B/P (MAP) 103/60 104/58 (73) Pulse Ox 97 96 O2 Delivery Mechanical Ventilator Mechanical Ventilator O2 Flow Rate 40.00 FiO2 100 12/03/17 12/03/17 12/03/17 12/03/17 00:28 00:37 00:58 01:00 Pulse 91 90 Resp 18 B/P (MAP) 142/73 Pulse Ox 98 O2 Delivery Mechanical Ventilator O2 Flow Rate 30.00 FiO2 40 12/03/17 12/03/17 12/03/17 12/03/17 01:00 02:00 02:04 03:00 Pulse 91 89 88 105 Resp 12 12 15 12 B/P (MAP) 100/52 (68) 125/59 (81) 128/72 (90) Pulse Ox 97 98 97 93 O2 Delivery Mechanical Ventilator Mechanical Ventilator Mechanical Ventilator O2 Flow Rate 30.00 30.00 30.00 FiO2 40 12/03/17 12/03/17 12/03/17 12/03/17 03:56 04:00 04:00 04:13 Temp 96.8 Pulse 82 82 Resp 13 17 B/P (MAP) 91/48 (62) Pulse Ox 94 94 95 O2 Delivery Mechanical Ventilator Mechanical Ventilator O2 Flow Rate 30.00 FiO2 30 30 12/03/17 12/03/17 12/03/17 12/03/17 05:22 06:08 07:00 07:00 Pulse 79 86 87 Resp 18 17 B/P (MAP) 104/61 94/48 (63) Pulse Ox 99 100 O2 Delivery Mechanical Ventilator O2 Flow Rate 60.00 FiO2 30 12/03/17 12/03/1712/03/18 08:00 08:00 08:25 Temp 98.5 Pulse 93 94 Resp 17 17 B/P (MAP) 108/56 (73) Pulse Ox 100 100 O2 Delivery Mechanical Ventilator O2 Flow Rate 60.00 FiO2 100 12/03/17 00:00 Intake Total 860 ml Output Total 1600 ml Balance -740 ml Weight (Pounds): 175 Weight (Ounces): 2.0 Weight (Calculated Kilograms): 79.755215 Constitutional: well-developed, well-nourished, other (intubated and on mech vent) Respiratory: No accessory muscle use, No respiratory distress; chest expansion is symmetric, chest is bilaterally symmetric, other (diminished throughout; R>L) Cardiovascular: regular rate-rhythm; No JVD; S1 and S2, systolic murmur (3/6 MSM) Gastrointestional: No tender; soft, round; No guarding, No rebound; audible bowel sounds Extremities: No clubbing, No cyanosis; no lower extremity edema bilateral Neurologic/Psychiatric: other (on mech vent; seems to be able to move all limbs ) Skin: normal color, warm/dry; No rash, No ulcerations Results/Procedures: Labs Laboratory Tests 12/02/17 09:35: Urine Color YELLOW, Urine Clarity CLEAR, Urine pH 6, Urine Specific Ramer 1.015L, Urine Protein NEGATIVE, Urine Glucose (UA) NEGATIVE, Urine Ketones NEGATIVE, Urine Nitrite POSITIVEH, Urine Bilirubin NEGATIVE, Urine Urobilinogen NORMAL, Urine Leukocyte Esterase 2+H, Urine RBC (Auto) NEGATIVE, Urine RBC NONE , Urine WBC 5-10H, Urine Squamous Epithelial Cells 5-10, Urine Crystals NONE, Urine Bacteria MODERATEH, Urine Casts NONE, Urine Mucus NEGATIVE, Urine Culture Indicated YES, Urine Legionella pneumophilia Ag Negative, Streptococcus pneumoniae Antigen Negative 12/02/17 20:35: Blood Gas Puncture Site RIGHT RADIAL, Blood Gas Patient Temperature 97.8, Arterial Blood pH 7.40, Arterial Blood Partial Pressure CO2 36, Arterial Blood Partial Pressure O2 404H, Arterial Blood HCO3 22L, Arterial Blood Total CO2 22.9 , Arterial Blood Oxygen Saturation 100, Arterial Blood Base Excess -2.4, Sal Test POSITIVE, Blood Gas Ventilator Setting YES, Blood Gas Inspired Oxygen 100% 12/02/17 20:45: Triglycerides Level 259H 12/02/17 22:02: Glucometer 245H 12/02/17 23:30: Glucometer 201H 12/03/17 03:13: White Blood Count 10.7, Red Blood Count 3.33L, Hemoglobin 9.4L, Hematocrit 30L, Mean Corpuscular Volume 90, Mean Corpuscular Hemoglobin 28, Mean Corpuscular Hemoglobin Concent 31L, Red Cell Distribution Width 14.1, Platelet Count 309, Mean Platelet Volume 10.0, Neutrophils (%) (Auto) 85H, Lymphocytes (%) (Auto) 12 , Monocytes (%) (Auto) 3, Eosinophils (%) (Auto) 0, Basophils (%) (Auto) 0, Neutrophils # (Auto) 9.0H, Lymphocytes # (Auto) 1.3, Monocytes # (Auto) 0.3, Eosinophils # (Auto) 0.0, Basophils # (Auto) 0.0, Prothrombin Time 15.7H, INR Comment 1.3, Activated Partial Thromboplast Time 46H, Sodium Level 140, Potassium Level 3.9, Chloride Level 108H, Carbon Dioxide Level 19L, Anion Gap 13 , Blood Urea Nitrogen 18, Creatinine 1.18, Estimat Glomerular Filtration Rate 44 , BUN/Creatinine Ratio 15, Glucose Level 168H, Lactic Acid Level 4.63*H, Calcium Level 7.8L, Corrected Calcium 8.4L, Phosphorus Level 4.2, Magnesium Level 1.9, Total Bilirubin 0.3, Aspartate Amino Transf (AST/SGOT) 28, Alanine Aminotransferase (ALT/SGPT) 21, Alkaline Phosphatase 55, B-Type Natriuretic Peptide 1922.4H, Total Protein 5.5L, Albumin 3.3 12/03/17 03:20: Blood Gas Puncture Site LEFT RADIAL, Blood Gas Patient Temperature 97.5, Arterial Blood pH 7.30*L, Arterial Blood Partial Pressure CO2 44, Arterial Blood Partial Pressure O2 92, Arterial Blood HCO3 22L, Arterial Blood Total CO2 23.0, Arterial Blood Oxygen Saturation 97, Arterial Blood Base Excess -3.9L, Sal Test YES-POS, Blood Gas Ventilator Setting YES, Blood Gas Inspired Oxygen 30% Microbiology 12/02/17 Blood Culture - Preliminary, Resulted No growth 12/02/17 Influenza Types A,B Antigen (PINA) - Final, Complete Laboratory Tests 12/02/17 03:45 12/03/17 03:13 A/P: Assessment: Pneumonia with sepsis - management per Medical and Pulmonary Services Hemoptysis, likely due to pneumonia Blood clots in stools, suggestive of GI bleed or swallowed blood from hemoptysis. W/u for this is with the Med Svce Chronic diastolic CHF, currently clinically compensated PAF, first documented on tele strips at [facility] in early 2016. Currently in NSR H/o ischemic cm. LVEF on 02/18/17 was 35%. Echo of 05/26/17: LVEF 50%, grade 3 rehman dysfunction, MAC, mild MR, mod to severe , PASP 40-45 mmHg CAD. S/p prox LAD stenting by Dr Obrien at [facility] on 02/20/17: Promus 2.5x24. Cath on 02/18/17 prior to cor stenting showed dual LAD, one of which was proximally occluded and the other was severely diseased. Rest of the cors had mod dz MPI of 01/12/17: anteroapical infarction w/o significant ischemia; LVEF 39% Dizziness and vertigo, improved after reduction of anti-htn and Invokana treatment in early Apr 2015. MRI head on 05/10/15 (Dr Mariano) did not show lesions other than possibility of chronic microvascular disease Valvular heart disease. Cath of 02/18/17 showed mod MR and a gradient across AoV of 25-30 mmHg. Mod with valve area 1.4 cm sq and mean gradient across aortic valve of 23 mmHg on echo of 01/08/17. Subsequent echo as noted above DM II CKD stage 3, likely diabetic nephropathy. eGFR on 05/25/17 is 44 Hyperlipidemia, but has intolerance to statins (severe joint pains) Hypothyroidism, treated with thyroid replacement therapy. TSH normal (2.19) on Bilateral leg and foot discomfort which has been diagnosed as neuropathy. Normal bilat EDDY in June 2014 Mild bilat carotid arterial disease on carotid u/s of 06/08/17 Abn ECG. ECG of 05/13/17: NSR, old ASMI H/o surgeries: S/p hysterectomy w/o oophorectomy; S/p bilateral knee replacement ; H/o R rotator cuff surgery Plan: * Complex management due to multiple comorbidities * OK to hold Eliquis for now d/t hemoptysis and blood in stools until source is determined and treated * Last stenting was greater than 6 months ago; OK to hold Effient, but we do advise low dose ASA if OK with Pulmonary/Medical Services d/t CAD with stenting * Continue bb; change to iv while on mech vent * Monitor labs * I spoke with her and two daughters and answered questions DEMARIO LOPEZ MD FACP [facility] Dec 03, 2017 09:26
[2017-12-03] MEDS: ASPIRIN 81 MG CHEW (CHILDREN'S ASA) NG SCH (09:34)
--- NOTE | 2017-12-03 10:18 | Physical Therapy Progress Note ---
Therapy Progress Note Patient is currently on mechanical ventilator and does not require skilled therapy at this time. NAIVN SANTILLAN PT Dec 03, 2017 10:18
--- NOTE | 2017-12-03 11:04 | Progress Note ---
Subjective Date Seen by a Provider: Dec 03, 2017 Time Seen by a Provider: 10:45 Subjective/Events-last exam PT SEEN IN ICU - PER STAFF SHE HAD RESPIRATORY DISTRESS WORSENING OVER THE AFTERNOON YESTERDAY AND SHE WAS INTUBATED BY ANESTHESIA - THEY REPORT THAT THE BACK OF HER THROAT APPEARED TO BE EDEMATOUS PT IS INTUBATED AND UNABLE TO PARTICIPATE IN SUBJECTIVE EVAL OR ROS TODAY. Review of Systems General: Other (PT INTUBATED) HEENT: Other (INTUBATED) Pulmonary: Other (INTUBATED) Gastrointestinal: No: Vomiting Genitourinary: Other (WEIR IN PLACE) Neurological: Other (SEDATED ON VENT) Focused Exam Lactate Level 12/02/17 03:45: Lactic Acid Level 2.24*H 12/02/17 06:11: Lactic Acid Level 2.61*H 12/03/17 03:13: Lactic Acid Level 4.63*H Objective Exam Last Set of Vital Signs Vital Signs Date Time Temp Pulse Resp B/P (MAP) Pulse Ox O2 Delivery O2 Flow Rate FiO2 12/03/17 09:56 116 18 145/40 12/03/17 09:49 100 100 12/03/17 08:00 Mechanical Ventilator 12/03/17 08:00 60.00 12/03/17 08:00 98.5 Capillary Refill : Less Than 3 Seconds I&O Intake and Output 12/03/17 00:00 Intake Total 2360 ml Output Total 2000 ml Balance 360 ml Intake Oral 1160 ml IV Total 1200 ml Output Urine Total 2000 ml Daily Weight Change Yes, Unsure # of pounds General: Other ( INTUBATED, SEDATED) Neck: Supple Lungs: Other (DECREASED AIR MOVEMENT THROUGHOUT) Heart: Regular Rate, Other (II/ SABRINA) Extremities: Other (EDEMA OF HANDS) Psych/Mental Status: Other (SEDATED ON VENT) Results Lab Laboratory Tests 12/02/17 20:35: Blood Gas Puncture Site RIGHT RADIAL, Blood Gas Patient Temperature 97.8, Arterial Blood pH 7.40, Arterial Blood Partial Pressure CO2 36, Arterial Blood Partial Pressure O2 404H, Arterial Blood HCO3 22L, Arterial Blood Total CO2 22.9 , Arterial Blood Oxygen Saturation 100, Arterial Blood Base Excess -2.4, Sal Test POSITIVE, Blood Gas Ventilator Setting YES, Blood Gas Inspired Oxygen 100% 12/02/17 20:45: Triglycerides Level 259H 12/02/17 22:02: Glucometer 245H 12/02/17 23:30: Glucometer 201H 12/03/17 03:13: White Blood Count 10.7, Red Blood Count 3.33L, Hemoglobin 9.4L, Hematocrit 30L, Mean Corpuscular Volume 90, Mean Corpuscular Hemoglobin 28, Mean Corpuscular Hemoglobin Concent 31L, Red Cell Distribution Width 14.1, Platelet Count 309, Mean Platelet Volume 10.0, Neutrophils (%) (Auto) 85H, Lymphocytes (%) (Auto) 12 , Monocytes (%) (Auto) 3, Eosinophils (%) (Auto) 0, Basophils (%) (Auto) 0, Neutrophils # (Auto) 9.0H, Lymphocytes # (Auto) 1.3, Monocytes # (Auto) 0.3, Eosinophils # (Auto) 0.0, Basophils # (Auto) 0.0, Prothrombin Time 15.7H, INR Comment 1.3, Activated Partial Thromboplast Time 46H, Sodium Level 140, Potassium Level 3.9, Chloride Level 108H, Carbon Dioxide Level 19L, Anion Gap 13 , Blood Urea Nitrogen 18, Creatinine 1.18, Estimat Glomerular Filtration Rate 44 , BUN/Creatinine Ratio 15, Glucose Level 168H, Lactic Acid Level 4.63*H, Calcium Level 7.8L, Corrected Calcium 8.4L, Phosphorus Level 4.2, Magnesium Level 1.9, Total Bilirubin 0.3, Aspartate Amino Transf (AST/SGOT) 28, Alanine Aminotransferase (ALT/SGPT) 21, Alkaline Phosphatase 55, B-Type Natriuretic Peptide 1922.4H, Total Protein 5.5L, Albumin 3.3 12/03/17 03:20: Blood Gas Puncture Site LEFT RADIAL, Blood Gas Patient Temperature 97.5, Arterial Blood pH 7.30*L, Arterial Blood Partial Pressure CO2 44, Arterial Blood Partial Pressure O2 92, Arterial Blood HCO3 22L, Arterial Blood Total CO2 23.0, Arterial Blood Oxygen Saturation 97, Arterial Blood Base Excess -3.9L, Sal Test YES-POS, Blood Gas Ventilator Setting YES, Blood Gas Inspired Oxygen 30% 12/03/17 07:03: Microbiology 12/02/17 Blood Culture - Preliminary, Resulted No growth 12/02/17 MRSA Screen - Final, Complete MRSA not isolated Assessment/Plan Assessment/Plan Assess & Plan/Chief Complaint SEPSIS PNEUMONIA RESPIRATORY DISTRESS HYPERTENSION HEMOPTYSIS DIABETES MELLITUS CORONARY ARTERY DISEASE ATRIAL FIBRILLATION SEPSIS WITH PNEUMONIA AND RESPIRATORY DISTRESS - PT PLACED ON VENTILATORY SUPPORT LAST NIGHT DUE TO INCREASED WORK OF BREATHING AND DISTRESS WHILE ON OXYGEN VIA NASAL CANNULA, SEPSIS PROTOCOL WITH FLUIDS AND IV ANTIBIOTICS TO BE CONTINUED - LACTIC ACID LEVEL STILL ELEVATED, MONITOR SERIAL CHEST XRAYS. AGREE WITH DR. MCCLELLAN STARTING STEROIDS IV. HYPERTENSION - RESUMED HOME MEDICATIONS. HEMOPTYSIS - BRONCHOSCOPY TODAY DID NOT REVEAL ANY EVIDENCE OF BLEEDING IN THE TRACHEA OR BRONCHIAL TISSUE - DR. MCCLELLAN HAS CONSULTED DR. HOLT FOR EGD TODAY. DIABETES MELLITUS - WILL INITIATE ICU HYPERGLYCEMIA PROTOCOL UNTIL PT TAKING NORMAL FOOD INTAKE AND THEN WILL CONSIDER RESUMPTION OF NORMAL HOME REGIMEN. CORONARY ARTERY DISEASE - CONSULT TO CARDIOLOGY HAS BEEN PLACED AFIB - CONSULT TO CARDIOLOGY. FAMILY AWARE OF HOW ILLBg BARNES IS AND ARE STILL WANTING TO PURSUE CONTINUED CARE AT THIS TIME. Clinical Quality Measures Admission Status Admission Dx SEPSIS PNEUMONIA RESPIRATORY DISTRESS HYPERTENSION HEMOPTYSIS DIABETES MELLITUS CORONARY ARTERY DISEASE DVT/VTE Risk/Contraindication: Risk Factor Score Per Nursin RFS Level Per Nursing on Admit: 3=High KURTIS DIEGO MD Dec 03, 2017 11:04
[2017-12-03] MEDS: meTOprolol 5 MG/5 ML (LOPRESSOR) VIAL IV SCH ×4 (11:34→23:42)
[2017-12-03] MEDS: methylPREDNISolone 40 MG/ML (Solu-MEDROL) VIAL IV SCH ×3 (11:34→23:42)
--- NOTE | 2017-12-03 12:14 | Conscious Sedation/ASA ---
Conscious Sedation Pre-Proced Time Reviewed: 12:00 ASA Class: 3 Airway Mallampati Classification: (nulato appropriate class) I. II. III, IV Lungs Heart ASA score ASA 1: a normal healthy patient ASA 2: a patient with a mild systemic disease (mid diabetes, controlled hypertension, obesity ASA 3: a patient with a severe systemic disease that limits activity (angina , COPD, prior Myocardial infarction) ASA 4: a patient with an incapacitating disease that is a constant threat to life (CHF, renal failure) ASA 5: a moribund patient not expected to survive 24 hrs. (ruptured aneurysm) ASA 6: a declared brain patient whose organs are being harvested. For emergent operations, add the letter E after the classification Grade 2 Sedation Plan: Analgesia, Amnesia, Plan communicated to team members, Discussed options with patient/fam, Discussed risks with patient/fam Note The patient is an appropriate candidate to undergo the planned procedure, sedation, and anesthesia. The patient immediately re-assessed prior to indication. YENNY HOLT MD Dec 03, 2017 12:14 pm
--- NOTE | 2017-12-03 12:15 | Progress Note-Pre Operative ---
Pre-Operative Progress Note H&P Reviewed The H&P was reviewed, patient examined and no changes noted. Date Seen by Provider: Dec 03, 2017 Time Seen by Provider: 12:00 Date H&P Reviewed: Dec 03, 2017 Time H&P Reviewed: 12:00 Pre-Operative Diagnosis: hematamesis YENNY HOLT MD Dec 03, 2017 12:15 pm
--- NOTE | 2017-12-03 13:24 | Occ Therapy Progress Note ---
Therapy Progress Note 1305 Pt on vent and not able to participate in OT evaluation. Will continue to follow. RANCHO QUINTANA OT Dec 03, 2017 13:24
--- NOTE | 2017-12-03 14:06 | Progress Note-Post Operative ---
Post-Operative Progess Note Surgeon (s)/Supervisor Claims (s) Surgeon YENNY HOLT MD Supervisor Claims: none Pre-Operative Diagnosis hematamesis Post-Operative Diagnosis reflux esophagitis, no hiatal hernia, mild gastritis, no bleeding. Procedure & Operative Findings Date of Procedure 12/03/17 Procedure Performed/Findings EGD with bx. Anesthesia Type CS Estimated Blood Loss Estimated blood loss (mL): minimal Specimens/Packing Specimens Removed GE jxn, antrum YENNY HOLT MD Dec 03, 2017 2:06 pm
[2017-12-03] MEDS ORDERED: NS IV 500 ML 500 ML IV STA (15:14)
--- NOTE | 2017-12-03 15:15 | CONSULTATION REPORT ---
DATE OF SERVICE: 12/03/2017 ATTENDING PRIMARY CARE PHYSICIAN: Dr. Nicole. CONSULTING PHYSICIAN: Dr. Burrows. PREOPERATIVE DIAGNOSIS: Hemoptysis and possible hematemesis with respiratory failure and hypotension. POSTOPERATIVE DIAGNOSIS: Reflux esophagitis stage II with no ulcerations, strictures or bleeding. NG tube was in the stomach with some mild gastritis. No hiatal hernia. There were no ulcerations or any active bleeding sources. PROCEDURE: EGD with biopsy. SURGEON: Yenny Holt MD ANESTHESIA: Conscious sedation. ESTIMATED BLOOD LOSS: Minimal. FINDINGS: Reflux esophagitis stage II. No ulcerations or strictures. No hiatal hernia. Mild gastritis with no ulcerations, polyps or any neoplasms. Pylorus and duodenum appeared normal with no bleeding sources. DISPOSITION: The patient tolerated the procedure well. HISTORY OF PRESENT ILLNESS: The patient is a 77-year-old female, who reports having the sudden onset of coughing as well as noticing blood in her sputum. She had reported not feeling well and had been cleaning the house using chemicals. Since being admitted, she has become progressively short of breath. A CT scan was performed, which did show bilateral consolidation of the lung lobes as well as some consolidation of the upper and middle right lobe, which may be consistent with a pneumonitis. Since being admitted, she has had worsening respiratory failure requiring intubation. A bronchoscopy was performed, which did not show any bleeding sources of the tracheobronchial tree. Again, we are unsure if she had potential hemoptysis versus hematemesis from a gastrointestinal bleed. She is slightly anemic with hemoglobin of 9.6. PAST MEDICAL HISTORY: Coronary artery disease, hypertension, hypercholesterolemia, degenerative joint disease, peripheral vascular disease, valvular heart disease, chronic urinary tract infection, diabetes, anxiety, depression. PAST SURGICAL HISTORY: Partial hysterectomy, bilateral total knee arthroplasty, tonsillectomy, bladder suspension, coronary artery angioplasty and stent placement 02/2017. Carpal tunnel release. ALLERGIES: CANAGLIFLOZIN, LIRAGLUTIDE, STATIN INHIBITORS. MEDICATIONS: Eliquis 5 mg b.i.d., digoxin 250 mcg daily, citalopram 10 mg daily, ezetimibe 10 mg daily, fluticasone 16 g spray b.i.d., furosemide 40 mg daily p.r.n., gabapentin 600 mg t.i.d., insulin glargine 20 units daily, levothyroxine 50 mcg daily, metformin 500 mg t.i.d., metoprolol 100 mg daily, nitroglycerin p.r.n., Protonix 40 mg daily, potassium 20 mEq daily, prasugrel 10 mg daily, sacubitril/valsartan b.i.d. SOCIAL HISTORY: Negative smoke, negative alcohol. FAMILY HISTORY: Noncontributory. VITAL SIGNS: Temperature 99.0, blood pressure 131/69, pulse 95, respirations 21 on ventilator and 60% FiO2. REVIEW OF SYSTEMS: The patient is currently ventilated on a ventilator and sedated with a propofol drip; however, he is responsive to voice and touch. She presented with a cough, feeling weak as well as possible hemoptysis, possible hematemesis, history of gastroesophageal reflux disease. No previous history of bleeding ulcers. The family does not report any major issues with diarrhea nor constipation as well as no red blood per rectum nor any dark tarry stools. No recent weight loss at home. All other review of systems negative. PHYSICAL EXAMINATION: CHEST: Scattered rales and rhonchi bilaterally. HEART: Regular, no murmurs. EXTREMITIES: No lower extremity edema, negative Homans sign. HEENT: No scleral icterus. NECK: No cervical lymphadenopathy. ABDOMEN: Soft, nontender, nondistended. SKIN: Warm, dry. LABORATORY DATA: WBC 10.7, hemoglobin 9.4, hematocrit 30, platelets 309. PTT 46. Urine was 2+ positive for leukocyte esterase and urine nitrite as well as moderate bacteria. ASSESSMENT AND PLAN: This is a 77-year-old female with respiratory failure as well as hemoptysis, status post bronchoscopy, which did not show any bleeding sources and history of gastroesophageal reflux disease, rule out gastrointestinal bleeding and hematemesis. We will proceed with an EGD as well as biopsies as appropriate. If there are no bleeding source is identified, we will start tube feeds to prevent bacterial translocation and support of immunologic systems. Her aspirin also may be restarted as well. We will also proceed with the EGD. Job ID: [id number] DocumentID: [id number] Dictated Date: 12/03/2017 14:18:04 [place] Guide Date: 12/03/2017 15:14:25 Dictated By: YENNY HOLT MD [facility]Anna
[2017-12-03 15:45] LABS: BASOPHILS % (AUTO) 0 % (0-10); EOSINOPHILS % (AUTO) 0 % (0-10); HEMATOCRIT 34 % (35-52); HEMOGLOBIN 10.6 G/DL (11.5-16.0); LYMPHOCYTES # (AUTO) 0.6 X 10^3 (1.0-4.0); LYMPHOCYTES % (AUTO) 4 % (12-44); MEAN CORPUSCULAR HEMOGLOBIN 28 PG (25-34); MEAN CORPUSCULAR HGB CONC 31 G/DL (32-36); MEAN CORPUSCULAR VOLUME 91 FL (80-99); MEAN PLATELET VOLUME 10.2 FL (7.4-10.4); MONOCYTES # (AUTO) 0.3 X 10^3 (0.0-1.0); MONOCYTES % (AUTO) 2 % (0-12); NEUTROPHILS # (AUTO) 16.3 X 10^3 (1.8-7.8); NEUTROPHILS % (AUTO) 94 % (42-75); PLATELET COUNT 386 10^3/uL (130-400); RED BLOOD COUNT 3.76 10^6/uL (4.35-5.85); RED CELL DISTRIBUTION WIDTH 14.5 % (10.0-14.5); WHITE BLOOD COUNT 17.3 10^3/uL (4.3-11.0)
--- NOTE | 2017-12-03 15:55 | Diagnostic Imaging Report ---
INDICATION: Increasing respiratory distress. COMPARISON: 3:26 AM on the same day. TECHNIQUE: Single frontal view of the chest. FINDINGS: There are extensive patchy airspace opacities throughout the lungs bilaterally, which have markedly increased throughout the left lung compared to the prior exam 12 hours previous. The cardiac silhouette is stable in size. No large effusion or pneumothorax is seen. The endotracheal tube is 5 cm from the niesha and appears stable. Enteric tube crosses the [id number]. IMPRESSION: 1. Extensive airspace opacities throughout the lungs bilaterally, mildly increased on the right and markedly increased in the left lung since the previous exam. Dictated by: Dictated on workstation # [id number]
[2017-12-03 15:59] LABS: CALCIUM 7.8 MG/DL (8.5-10.1); CREATININE SERUM 1.13 MG/DL (0.60-1.30); MAGNESIUM 1.7 MG/DL (1.8-2.4); POTASSIUM 4.3 MMOL/L (3.6-5.0)
[2017-12-03 16:24] LABS: NEUTROPHILS % (MANUAL) 90 %
[2017-12-03 16:25] LABS: BAND NEUTROPHILS 3 %; BASOPHILS % (MANUAL) 0 %; EOSINOPHILS % (MANUAL) 0 %; LYMPHOCYTES % (MANUAL) 5 %; MONOCYTES % (MANUAL) 2 %; RBC MORPH NORMAL
[2017-12-03] MEDS: DILTIAZEM IV FOR DRIP 125 MG in NS (IVPB) 100 ML IV SCH (17:02)
[2017-12-03] MEDS: DEXMEDETOMIDINE INJECTION 400 MCG in NS (IVPB) 96 ML IV SCH (17:55)
--- NOTE | 2017-12-03 17:58 | Diagnostic Imaging Report ---
INDICATION: PICC line placement. TIME OF EXAM: 5:38 p.m. EXAMINATION: Single view of the chest. COMPARISON: Correlation is made with prior study from earlier the same day. FINDINGS: The right upper extremity PICC line is now positioned with the tip extending retrograde in the right neck likely within the right internal jugular vein. This should be removed and repositioned. ET tube is above the niesha. NG tube passes below the diaphragm. Extensive bilateral pulmonary infiltrates persist. IMPRESSION: Malpositioned PICC line, as described, extending into the right internal jugular vein. Report was called to nurse Page in the ICU at [facility] at 5:55 p.m., by brigid. Dictated by: Dictated on workstation # [id number]
[2017-12-03 19:10] LABS: HEMOGLOBIN 8.9 G/DL (11.5-16.0)
--- NOTE | 2017-12-03 20:08 | OPERATIVE REPORT ---
DATE OF SERVICE: 12/03/2017 ATTENDING PRIMARY CARE PHYSICIAN: Dr. Nicole. CONSULTING PHYSICIAN: Dr. Burrows. PREOPERATIVE DIAGNOSES: 1. Anemia. 2. Tachycardia. 3. Respiratory failure. 4. Hemoptysis. 5. Possible hematemesis. POSTOPERATIVE DIAGNOSES: Reflux esophagitis stage II with no ulcerations or strictures. No hiatal hernia. Mild gastritis. No distal obstructions and no bleeding sources. PROCEDURE: EGD with biopsy. SURGEON: Yenny Holt MD ANESTHESIA: Conscious sedation. ESTIMATED BLOOD LOSS: Minimal. FINDINGS: Reflux esophagitis stage II with no ulcerations, strictures or bleeding. No hiatal hernia identified with mild gastritis. No gastric or duodenal ulcerations. No distal obstructions. DISPOSITION: The patient tolerated the procedure well. INDICATIONS: The patient is a 77-year-old female, who presented with general malaise, weakness as well as a cough and possible hemoptysis. She was admitted and did develop worsening respiratory failure requiring intubation. A CT scan was performed, which did show consolidation of bilateral lung bases; however, there was also consolidation of the right upper and middle lobe consistent with a possible pneumonitis. 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 Since being admitted, she has also developed tachycardia and does have a history of gastroesophageal reflux disease and will require an EGD to rule out upper gastrointestinal bleeding. She is also status post angioplasty and stent placement in 02/2017 and is currently on anticoagulation. DESCRIPTION OF PROCEDURE: While on the ventilator and propofol drip, the mouthpiece was applied. The endoscope was then placed in the mouth visualizing the pharynx and hypopharyngeal region. Vocal cords, epiglottis and vallecula identified and appeared to a normal with no irritation or bleeding. The endoscope was gently intubated. The esophageal opening and esophagus insufflated. The endoscope was then advanced to the first, second and third portions of the esophagus. At the level of the GE junction, a reflux esophagitis stage II identified with no ulcerations, stricture or any bleeding sources. A biopsy was taken with forceps with visualization of good hemostasis. The endoscope was then easily advanced in the stomach and endoscope retroflexed visualizing no hiatal hernia. The recently placed nasogastric tube was identified and within the stomach. There was a mild gastritis noted. There were no ulcerations, polyps or any neoplasms as well as no active bleeding sources. Pylorus and duodenum appeared normal with no ulcerations nor any distal obstructions. A biopsy was taken of the stomach antrum for H. pylori with visualization of good hemostasis. The endoscope was then slowly withdrawn while taking a second look and suctioning of residual air with no additional findings. The patient tolerated the procedure well. We will recommend continued medical management and ventilator wean. The patient may be started on tube feeds as soon as possible as well as aspirin right away. We will recommend holding off on Eliquis just for one day and make sure her hemoglobin is stable and then resume if no contraindications. 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
[2017-12-03 23:59] LABS: HEMOGLOBIN 9.3 G/DL (11.5-16.0)
[2017-12-04] VITALS (31 sets, daily range): BP systolic 98–156; BP diastolic 33–69
[2017-12-04] MEDS: PROPOFOL DRIP (ICU) 100 ML IV SCH ×3 (01:09→15:41)
[2017-12-04] MEDS: NS IV 1000 ML 1,000 ML IV SCH ×2 (01:40→11:58)
[2017-12-04] MEDS: fentaNYL INJECTION 1,250 MCG in NS (IVPB) 250 ML IV SCH (01:47)
[2017-12-04] MEDS: PIPERACILLIN/TAZO 4.5 GM/NS 100 ML IV SCH ×6 (01:50→17:33)
[2017-12-04 03:31] LABS: ABG BASE EXCESS -5.2 MMOL/L (-2.5-2.5); ABG OXYGEN SATURATION 95 % (94-100); ABG PCO2 41 MMHG (35-45); ABG PO2 73 MMHG (79-93); ABG TCO2 21.5 MMOL/L (21.0-31.0)
[2017-12-04 03:33] LABS: BASOPHILS % (AUTO) 0 % (0-10); EOSINOPHILS % (AUTO) 0 % (0-10); HEMATOCRIT 27 % (35-52); HEMOGLOBIN 8.5 G/DL (11.5-16.0); LYMPHOCYTES # (AUTO) 0.3 X 10^3 (1.0-4.0); LYMPHOCYTES % (AUTO) 3 % (12-44); MEAN CORPUSCULAR HEMOGLOBIN 29 PG (25-34); MEAN CORPUSCULAR HGB CONC 32 G/DL (32-36); MEAN CORPUSCULAR VOLUME 90 FL (80-99); MEAN PLATELET VOLUME 10.3 FL (7.4-10.4); MONOCYTES # (AUTO) 0.2 X 10^3 (0.0-1.0); MONOCYTES % (AUTO) 2 % (0-12); NEUTROPHILS # (AUTO) 9.7 X 10^3 (1.8-7.8); NEUTROPHILS % (AUTO) 96 % (42-75); PLATELET COUNT 291 10^3/uL (130-400); RED BLOOD COUNT 2.96 10^6/uL (4.35-5.85); WHITE BLOOD COUNT 10.2 10^3/uL (4.3-11.0)
[2017-12-04 03:34] LABS: ABG PH 7.31 (7.37-7.43); ALLENS TEST YES-POS; INSPIRED O2 30%; PATIENT TEMP 97.2; VENTILATOR YES
[2017-12-04 03:49] LABS: CALCIUM 7.6 MG/DL (8.5-10.1); CREATININE SERUM 1.05 MG/DL (0.60-1.30); MAGNESIUM 2.2 MG/DL (1.8-2.4); PHOSPHORUS 2.8 MG/DL (2.3-4.7)
[2017-12-04] MEDS: MAGNESIUM 1 GM/100 ML IVPB 100 ML IV SCH (03:58)
[2017-12-04] MEDS: KCL 20 MEQ TAB (K-DUR) PO SCH (03:58)
[2017-12-04] MEDS: POTASSIUM CL 10MEQ/50ML IVPB 50 ML IV SCH (03:58)
[2017-12-04] MEDS: meTOprolol 5 MG/5 ML (LOPRESSOR) VIAL IV SCH ×6 (04:16→23:44)
--- NOTE | 2017-12-04 04:55 | Pulmonary Progress Note ---
Subjective Time Seen by a Provider: 04:57 Subjective/Events-last exam PT is currently sedated on vent Sepsis Event Evaluation Height, Weight, BMI Height: 5'3.00" Weight: 175lbs. 2.0oz. 79.999961ma; 29.4 BMI Method:Stated Focused Exam Lactate Level 12/02/17 06:11: Lactic Acid Level 2.61*H 12/03/17 03:13: Lactic Acid Level 4.63*H 12/03/17 15:34: Lactic Acid Level 1.99 Exam Exam Vital Signs Date Time Temp Pulse Resp B/P (MAP) Pulse Ox O2 Delivery O2 Flow Rate FiO2 12/04/17 04:46 92 27 100 30 12/04/17 03:20 100 Mechanical Ventilator 30 12/04/17 03:10 97.2 93 18 104/56 (72) 100 Mechanical Ventilator 30.00 12/04/17 02:30 Mechanical Ventilator 30.00 12/04/17 02:10 97 20 100 40 12/04/17 01:09 98 18 107/58 99 Mechanical Ventilator 40.00 12/04/17 01:00 98 18 110/59 (76) 100 Mechanical Ventilator 40.00 12/04/17 01:00 98 12/03/17 23:35 98.0 111 22 139/72 (94) 100 Mechanical Ventilator 40.00 12/03/17 23:35 100 Mechanical Ventilator 40 12/03/17 23:00 112 19 120/59 (79) 94 Mechanical Ventilator 40.00 12/03/17 22:00 122 21 123/62 (82) 97 Mechanical Ventilator 40.00 12/03/17 21:15 Mechanical Ventilator 40.00 12/03/17 21:00 105 17 111/53 (72) 100 Mechanical Ventilator 50.00 12/03/17 20:57 105 21 100 50 12/03/17 20:00 98 16 108/53 (71) 100 Mechanical Ventilator 50.00 12/03/17 19:45 100 Mechanical Ventilator 50 12/03/17 19:40 98.1 99 16 92/36 (54) 100 Mechanical Ventilator 50.00 12/03/17 19:00 109 12/03/17 19:00 110 18 98/39 (58) 100 50.00 12/03/17 18:43 107 22 100 60 12/03/17 18:24 111 106/37 12/03/17 18:00 109 16 108/38 (61) 100 Mechanical Ventilator 60.00 12/03/17 17:02 116 118/53 12/03/17 17:00 115 15 111/51 (71) 100 Mechanical Ventilator 60.00 12/03/17 16:01 120 17 98 60 12/03/17 16:00 121 18 123/58 (79) 100 Mechanical Ventilator 60.00 12/03/17 15:30 100 Mechanical Ventilator 60 12/03/17 15:00 134 18 90 Mechanical Ventilator 60.00 12/03/17 14:21 120/52 12/03/17 14:05 110 21 97 60 12/03/17 14:02 Mechanical Ventilator 60.00 12/03/17 14:00 110 23 105/43 (63) 98 Mechanical Ventilator 60.00 12/03/17 13:00 95 12/03/17 13:00 93 18 90/35 (53) 100 Mechanical Ventilator 70.00 12/03/17 12:30 Mechanical Ventilator 70.00 12/03/17 12:09 79 19 98 70 12/03/17 12:00 99.0 12/03/17 12:00 95 16 131/38 (69) 100 Mechanical Ventilator 80.00 12/03/17 11:40 Mechanical Ventilator 80.00 12/03/17 11:38 99.2 12/03/17 11:38 100 Mechanical Ventilator 80 12/03/17 11:30 80 12/03/17 11:00 112 16 116/33 (60) 100 Mechanical Ventilator 100.00 12/03/17 10:00 117 19 125/34 (64) 100 Mechanical Ventilator 100.00 12/03/17 09:56 116 18 145/40 12/03/17 09:49 81 20 100 100 12/03/17 09:00 101 17 100 Mechanical Ventilator 100.00 12/03/17 08:25 94 17 100 100 12/03/17 08:00 100 Mechanical Ventilator 100 12/03/17 08:00 93 17 108/56 (73) 100 Mechanical Ventilator 60.00 12/03/17 08:00 98.5 12/03/17 07:00 87 17 94/48 (63) 100 Mechanical Ventilator 60.00 12/03/17 07:00 86 12/03/17 06:08 79 18 99 30 12/03/17 05:22 104/61 I & O 12/04/17 07:00 Intake Total 4852.5 ml Output Total 942 ml Balance 3910.5 ml Height & Weight Height: 5'3.00" Weight: 175lbs. 2.0oz. 79.342088kq; 29.4 BMI Method:Stated General Appearance: No Apparent Distress, WD/WN HEENT: PERRL/EOMI, Pharynx Normal Neck: Full Range of Motion, Supple Respiratory: Chest Non Tender, Crackles, Decreased Breath Sounds (THROUGHOUT RIGHT LUNG WITH CRACKLES ON ENTIRE RIGHT SIDE AND LEFT BASE) Cardiovascular: Regular Rate, Rhythm, Normal Peripheral Pulses, Systolic Murmur (III/ SABRINA), Other (NORMAL CAPILLARY REFILL TIME) Capillary Refill: Less Than 3 Seconds Extremity: Normal Capillary Refill, Normal Inspection, Non Tender, No Calf Tenderness, No Pedal Edema Neurologic/Psychiatric: Alert, Oriented x3, No Motor/Sensory Deficits, Normal 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, 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 as 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 Skin: Normal Color, Warm/Dry Lymphatic: No Adenopathy Results Lab Laboratory Tests 12/03/17 03:13 12/03/17 15:34 12/03/17 19:05 12/03/17 23:52 12/04/17 03:10 Assessment/Plan Assessment/Plan Acute respiratory failure -Pt was intubated last night secondary to worsening respiratory status - propofol pt is on 30mcg of propofol -Add precedex and wean propofol down -Will add Fentanyl gtt Pneumonia r/o early sepsis (no leukocytosis currently Tm is 99.7) -Zosyn and Vanco -Influenza is negative -IVF -Michele cultures pending -urine strep and legionella ag pending Moderate to severe aortic stenosis with probable hemolysis -Check haptoglobin and peripheral smear -Cardiology is following Hemoptysis with blood clots -Hold eliquis -S.P bronchoscopy - No signs of hemoptysis Hypotension - Improved -Pt was hypotensive and tachycardic last night Metabolic lactic acidosis -LA is now normal -IVF -Will give 2 amps of Bicarb -Repeat Anemia -H&H Q12 Dehydration -IVF PAF hx -Will hold eliquis for now secondary to hemoptysis Diastolic CHF hx - currently appears stable -Monitor CAD DM II No hx of tobacco use NICOLA MCCLELLAN DO Dec 04, 2017 04:55
[2017-12-04] MEDS: DEXMEDETOMIDINE INJECTION 400 MCG in NS (IVPB) 96 ML IV SCH (04:59)
[2017-12-04] MEDS: methylPREDNISolone 40 MG/ML (Solu-MEDROL) VIAL IV SCH ×4 (05:06→23:44)
[2017-12-04] MEDS: inSUlin ASPART (NovoLOG) 1 UNIT/0.01 ML (CHARGE PER UNIT) SC SCH ×4 (05:06→23:44)
[2017-12-04] MEDS ORDERED: SODIUM BICARB 8.4% 50 MEQ/50 ML (ABBOTT) SYR IV ONE (05:15)
[2017-12-04 05:59] LABS: ABSOLUTE RETIC # 41 10e9/L (24-90); BASOPHILS % (AUTO) 0 % (0-10); EOSINOPHILS % (AUTO) 0 % (0-10); HEMATOCRIT 25 % (35-52); HEMOGLOBIN 8.2 G/DL (11.5-16.0); LYMPHOCYTES # (AUTO) 0.3 X 10^3 (1.0-4.0); LYMPHOCYTES % (AUTO) 3 % (12-44); MEAN CORPUSCULAR HEMOGLOBIN 29 PG (25-34); MEAN CORPUSCULAR HGB CONC 32 G/DL (32-36); MEAN CORPUSCULAR VOLUME 90 FL (80-99); MONOCYTES # (AUTO) 0.1 X 10^3 (0.0-1.0); MONOCYTES % (AUTO) 1 % (0-12); NEUTROPHILS # (AUTO) 7.8 X 10^3 (1.8-7.8); NEUTROPHILS % (AUTO) 96 % (42-75); PLATELET COUNT 246 10^3/uL (130-400); RED BLOOD COUNT 2.83 10^6/uL (4.35-5.85); RED CELL DISTRIBUTION WIDTH 13.9 % (10.0-14.5); RETICULOCYTE % 1.43 % (0.50-2.40); WHITE BLOOD COUNT 8.2 10^3/uL (4.3-11.0)
[2017-12-04 06:20] LABS: ANISOCYTOSIS SLIGHT; BAND NEUTROPHILS 3 %; LYMPHOCYTES % (MANUAL) 4 %; MONOCYTES % (MANUAL) 1 %; NEUTROPHILS % (MANUAL) 92 %
[2017-12-04] MEDS ORDERED: TROUGH ORDER-PHARMACY XX NR (06:30)
--- NOTE | 2017-12-04 07:46 | Diagnostic Imaging Report ---
Portable erect AP chest at 340 hours. INDICATION: Dyspnea. FINDINGS: The cardiomegaly and the diffuse alveolar/interstitial pulmonary infiltrates seen on the prior study of 12/03/2017 are again evident and essentially no different. The mediastinum is not widened. The osseous structures are intact. The supportive tubes and lines are unchanged in position. IMPRESSION: Stable chest. There has been no significant change since the prior exam. A followup study would be recommended for continued evaluation. Dictated by: Dictated on workstation # [id number]
[2017-12-04] MEDS: RT-ALBUTEROL/IPRATROPIUM 3 ML (DUONEB) VIAL INH SCH ×3 (08:45→19:50)
[2017-12-04] MEDS ORDERED: DIGOXIN 0.25 MG (LANOXIN) TAB NG SCH (09:00)
--- NOTE | 2017-12-04 09:14 | Physical Therapy Progress Note ---
Therapy Progress Note Pt sedated and on mechanical ventilator. No skilled PT indicated at this time. LUIS MARCUM DPT Dec 04, 2017 09:14
[2017-12-04] MEDS: VANCOMYCIN 1250 MG/NS 250 ML IVPB IV SCH ×2 (09:39)
[2017-12-04] MEDS: NS IV SCH ×2 (09:43→20:11)
[2017-12-04] MEDS: PANTOPRAZOLE 40 MG (PROTONIX) VIAL IV SCH (09:43)
[2017-12-04] MEDS: DEXMEDETOMIDINE IV SCH ×2 (09:43→20:11)
[2017-12-04] MEDS: ASPIRIN 81 MG CHEW (CHILDREN'S ASA) NG SCH (09:44)
--- NOTE | 2017-12-04 10:35 | Occ Therapy Progress Note ---
Therapy Progress Note Pt currently on ventilator and physician documenting that pt is unresponsive. OT eval not indicated at this time due to unresponsive status. RICARDO MOISE OT Dec 04, 2017 10:35
--- NOTE | 2017-12-04 11:09 | Progress Note-Hospitalist ---
Subjective HPI/CC On Admission Date Seen by Provider: Dec 04, 2017 Time Seen by Provider: 08:45 Subjective/Events-last exam Patient sedated on ventilator appears to be in no acute distress. RT reports minimal amount of pink frothy sputum with no clots or significant hemoptysis no purulent secretions noted. Focused Exam Lactate Level 12/02/17 06:11: Lactic Acid Level 2.61*H 12/03/17 03:13: Lactic Acid Level 4.63*H 12/03/17 15:34: Lactic Acid Level 1.99 Objective Exam Vital Signs Vital Signs Date Time Temp Pulse Resp B/P (MAP) Pulse Ox O2 Delivery O2 Flow Rate FiO2 12/04/17 10:00 81 20 121/63 (82) 100 Mechanical Ventilator 40.00 12/04/17 08:45 60 12/04/17 03:10 97.2 Capillary Refill : Less Than 3 Seconds General Appearance: No Apparent Distress, Obese Respiratory: No Accessory Muscle Use, No Respiratory Distress, Other (Views rhonchi without wheezing noted throughout) Cardiovascular: Regular Rate, Rhythm, No Gallop, No JVD, No Murmur, Normal Peripheral Pulses Gastrointestinal: Normal Bowel Sounds, No Organomegaly, No Pulsatile Mass, Non Tender, Soft Extremity: Other (2+ edema of the hands 1-2+ of the feet to the mid tibia extremities are warm heel protectors on) Results/Procedures Lab Laboratory Tests 12/03/17 15:34 12/03/17 19:05 12/03/17 23:52 12/04/17 03:10 12/04/17 05:50 Patient resulted labs reviewed. Assessment/Plan Assessment and Plan Assess & Plan/Chief Complaint 1. Pneumonitis with sepsis possibly aspiration in etiology with secondary non- hypercapnic respiratory failure.. Patient is ventilating easily on 30 percent with only mild impairment in AA gradient currently. The plan per staff this to cut back on sedation and tomorrow possibly start pressure support trials as long as there is no further decline in respiratory status. This was discussed with family members the bedside. 2. Per her primary care provider she is not been caring for her diabetes and is been under poor control currently blood sugars are in the 200 range likely due to Solu-Medrol we'll continue to monitor with sliding scale insulin. 3. Baseline stage III chronic renal disease secondary to diabetes and hypertension. 4. Ischemic cardiomyopathy history of past anterior RI last echo per Dr. LOPEZ revealing relatively well preserved systolic function with estimated ejection fraction of 50 percent patient does have stage III diastolic dysfunction. Critical Care Critical Care: Critically Ill Patient Clinical Quality Measures DVT/VTE Risk/Contraindication: Risk Factor Score Per Nursin RFS Level Per Nursing on Admit: 3=High RUBENS BOURGEOIS MD Dec 04, 2017 11:09
--- NOTE | 2017-12-04 12:52 | Progress Note-Cardiology ---
Cardiology SOAP Progress Note Subjective: Intubated, sedated, on mech vent, unable to provide history Objective: I&O/Vital Signs 12/04/17 12/04/17 12/04/17 12/04/17 01:00 01:00 01:09 02:10 Pulse 98 98 98 97 Resp 18 18 20 B/P (MAP) 110/59 (76) 107/58 Pulse Ox 100 99 100 O2 Delivery Mechanical Ventilator Mechanical Ventilator O2 Flow Rate 40.00 40.00 FiO2 40 12/04/17 12/04/17 12/04/17 12/04/17 02:30 03:10 03:20 04:00 Temp 97.2 Pulse 93 101 Resp 18 19 B/P (MAP) 104/56 (72) 110/56 (74) Pulse Ox 100 100 98 O2 Delivery Mechanical Ventilator Mechanical Ventilator Mechanical Ventilator Mechanical Ventilator O2 Flow Rate 30.00 30.00 40.00 FiO2 30 12/04/17 12/04/17 12/04/17 12/04/17 04:46 05:00 06:14 06:35 Pulse 92 93 88 89 Resp 27 13 17 24 B/P (MAP) 108/56 (73) 112/56 (74) Pulse Ox 100 100 100 99 O2 Delivery Mechanical Ventilator Mechanical Ventilator O2 Flow Rate 40.00 40.00 FiO2 30 30 12/04/17 12/04/17 12/04/17 12/04/17 07:00 07:00 07:35 08:00 Pulse 86 86 86 Resp 16 18 B/P (MAP) 117/58 (77) 121/60 Pulse Ox 100 100 100 O2 Delivery Mechanical Ventilator Mechanical Ventilator Mechanical Ventilator O2 Flow Rate 40.00 30.00 FiO2 50 12/04/17 12/04/17 12/04/17 12/04/17 08:00 08:45 09:00 10:00 Pulse 84 83 86 81 Resp 18 20 14 20 B/P (MAP) 119/59 (79) 110/44 (66) 121/63 (82) Pulse Ox 100 97 95 100 O2 Delivery Mechanical Ventilator Mechanical Ventilator Mechanical Ventilator O2 Flow Rate 40.00 40.00 40.00 FiO2 60 12/04/17 11:35 Pulse 80 Resp 20 Pulse Ox 97 FiO2 30 12/04/17 00:00 Intake Total 2145 ml Output Total 555 ml Balance 1590 ml Weight (Pounds): 190 Weight (Ounces): 1.0 Weight (Calculated Kilograms): 86.263611 Constitutional: well-developed, well-nourished, other (intubated and on mech vent) Respiratory: No accessory muscle use, No respiratory distress; chest expansion is symmetric, chest is bilaterally symmetric, other (diminished throughout; R>L) Cardiovascular: regular rate-rhythm; No JVD; S1 and S2, systolic murmur (3/6 MSM) Gastrointestional: No tender; soft, round; No guarding, No rebound; audible bowel sounds Extremities: No clubbing, No cyanosis; no lower extremity edema bilateral Neurologic/Psychiatric: other (on mech vent; seems to be able to move all limbs ) Skin: normal color, warm/dry; No rash, No ulcerations Results/Procedures: Labs Laboratory Tests 12/03/17 15:26: Glucometer 195H 12/03/17 15:34: White Blood Count 17.3H, Red Blood Count 3.76L, Hemoglobin 10.6L, Hematocrit 34L , Mean Corpuscular Volume 91, Mean Corpuscular Hemoglobin 28, Mean Corpuscular Hemoglobin Concent 31L, Red Cell Distribution Width 14.5, Platelet Count 386, Mean Platelet Volume 10.2, Neutrophils (%) (Auto) 94H, Lymphocytes (%) (Auto) 4L , Monocytes (%) (Auto) 2, Eosinophils (%) (Auto) 0, Basophils (%) (Auto) 0, Neutrophils # (Auto) 16.3H, Lymphocytes # (Auto) 0.6L, Monocytes # (Auto) 0.3, Eosinophils # (Auto) 0.0, Basophils # (Auto) 0.0, Neutrophils % (Manual) 90, Lymphocytes % (Manual) 5, Monocytes % (Manual) 2, Eosinophils % (Manual) 0, Basophils % (Manual) 0, Band Neutrophils 3, Blood Morphology Comment NORMAL, Sodium Level 138, Potassium Level 4.3, Chloride Level 111H, Carbon Dioxide Level 17L, Anion Gap 10, Blood Urea Nitrogen 16, Creatinine 1.13, Estimat Glomerular Filtration Rate 47, BUN/Creatinine Ratio 14, Glucose Level 224H, Lactic Acid Level 1.99, Calcium Level 7.8L, Phosphorus Level 4.0, Magnesium Level 1.7L 12/03/17 18:06: Glucometer 253H 12/03/17 19:05: Hemoglobin 8.9L, Hematocrit 28L 12/03/17 23:28: Glucometer 263H 12/03/17 23:52: Hemoglobin 9.3L, Hematocrit 30L 12/04/17 03:10: Hemoglobin 8.5L, Hematocrit 27L, White Blood Count 10.2, Red Blood Count 2.96L, Mean Corpuscular Volume 90, Mean Corpuscular Hemoglobin 29, Mean Corpuscular Hemoglobin Concent 32, Red Cell Distribution Width 14.0, Platelet Count 291, Mean Platelet Volume 10.3, Neutrophils (%) (Auto) 96H, Lymphocytes (%) (Auto) 3L , Monocytes (%) (Auto) 2, Eosinophils (%) (Auto) 0, Basophils (%) (Auto) 0, Neutrophils # (Auto) 9.7H, Lymphocytes # (Auto) 0.3L, Monocytes # (Auto) 0.2, Eosinophils # (Auto) 0.0, Basophils # (Auto) 0.0, Blood Gas Puncture Site RIGHT RADIAL, Blood Gas Patient Temperature 97.2, Arterial Blood pH 7.31*L, Arterial Blood Partial Pressure CO2 41, Arterial Blood Partial Pressure O2 73L, Arterial Blood HCO3 20L, Arterial Blood Total CO2 21.5, Arterial Blood Oxygen Saturation 95, Arterial Blood Base Excess -5.2L, Sal Test YES-POS, Blood Gas Ventilator Setting YES, Blood Gas Inspired Oxygen 30%, Sodium Level 138, Potassium Level 4.0, Chloride Level 114H, Carbon Dioxide Level 17L, Anion Gap 7, Blood Urea Nitrogen 16, Creatinine 1.05, Estimat Glomerular Filtration Rate 51, BUN/ Creatinine Ratio 15, Glucose Level 250H, Calcium Level 7.6L, Phosphorus Level 2.8, Magnesium Level 2.2 12/04/17 05:50: Hemoglobin 8.2L, Hematocrit 25L, White Blood Count 8.2, Red Blood Count 2.83L, Mean Corpuscular Volume 90, Mean Corpuscular Hemoglobin 29, Mean Corpuscular Hemoglobin Concent 32, Red Cell Distribution Width 13.9, Platelet Count 246, Mean Platelet Volume 10.0, Neutrophils (%) (Auto) 96H, Lymphocytes (%) (Auto) 3L , Monocytes (%) (Auto) 1, Eosinophils (%) (Auto) 0, Basophils (%) (Auto) 0, Neutrophils # (Auto) 7.8, Lymphocytes # (Auto) 0.3L, Monocytes # (Auto) 0.1, Eosinophils # (Auto) 0.0, Basophils # (Auto) 0.0, Neutrophils % (Manual) 92, Lymphocytes % (Manual) 4, Monocytes % (Manual) 1, Band Neutrophils 3, Anisocytosis SLIGHT, Absolute Reticulocyte Count 41, Percent Reticulocyte Count 1.43, Vancomycin Level Trough 8.5L 12/04/17 11:51: Glucometer 207H Microbiology 12/02/17 Blood Culture - Preliminary, Resulted No growth 12/03/17 Gram Stain - Final, Resulted 12/03/17 Bronchial Culture - Preliminary, Resulted No growth 12/03/17 Fungal Culture 1, Resulted Pending 12/02/17 Urine Culture - Preliminary, Resulted Klebsiella pneumoniae See Report Laboratory Tests 12/03/17 03:13 12/03/17 15:34 12/03/17 19:05 12/03/17 23:52 12/04/17 03:10 12/04/17 05:50 A/P: Assessment: Pneumonia with sepsis - management per Medical and Pulmonary Services Hemoptysis, likely due to pneumonia Blood clots in stools, suggestive of GI bleed or swallowed blood from hemoptysis. W/u for this is with the [employer] Chronic diastolic CHF, currently clinically compensated PAF, first documented on tele strips at [facility] in early 2016. Currently in NSR H/o ischemic cm. LVEF on 02/18/17 was 35%. Echo of 05/26/17: LVEF 50%, grade 3 rehman dysfunction, MAC, mild MR, mod to severe , PASP 40-45 mmHg CAD. [place] [facility] [place] Promus 2.5x24. Cath on 02/18/17 prior to cor stenting showed dual LAD, one of which was proximally occluded and the other was severely diseased. Rest of the cors had mod dz MPI of 01/12/17: anteroapical infarction w/o significant ischemia; LVEF 39% Dizziness and vertigo, improved after reduction of anti-htn and Invokana treatment in early Apr 2015. MRI head on 05/10/15 (Dr Mariano) did not show lesions other than possibility of chronic microvascular disease Valvular heart disease. Cath of 02/18/17 showed mod MR and a gradient across AoV of 25-30 mmHg. Mod with valve area 1.4 cm sq and mean gradient across aortic valve of 23 mmHg on echo of 01/08/17. Subsequent echo as noted above DM II CKD stage 3, likely diabetic nephropathy. eGFR on 05/25/17 is 44 Hyperlipidemia, but has intolerance to statins (severe joint pains) Hypothyroidism, treated with thyroid replacement therapy. TSH normal (2.19) on Bilateral leg and foot discomfort which has been diagnosed as neuropathy. Normal bilat EDDY in June 2014 Mild bilat carotid arterial disease on carotid u/s of 06/08/17 Abn ECG. ECG of 05/13/17: NSR, old ASMI H/o surgeries: S/p hysterectomy w/o oophorectomy; S/p bilateral knee replacement ; H/o R rotator cuff surgery Plan: * Complex management due to multiple comorbidities * OK to hold Eliquis for now d/t hemoptysis and blood in stools until source is determined and treated * Last stenting was greater than 6 months ago; OK to hold Effient, but we do advise low dose ASA if OK with Pulmonary/Medical Services d/t CAD with stenting * Continue bb; change to iv while on mech vent * Monitor labs * Consider blood transfusion if H/H drop further DEMARIO LOPEZ MD FACP FAC CCDS Dec 04, 2017 12:52
[2017-12-04] MEDS: DILTIAZEM IV FOR DRIP 125 MG in NS (IVPB) 100 ML IV SCH (14:22)
[2017-12-04] MEDS ORDERED: NS IV 500 ML 500 ML ONE (17:33)
[2017-12-04] MEDS: NS IV 500 ML 500 ML IV SCH ×2 (17:40→18:19)
[2017-12-04 18:03] LABS: HEMOGLOBIN 8.1 G/DL (11.5-16.0)
[2017-12-04 21:25] LABS: ABG BASE EXCESS -7.1 MMOL/L (-2.5-2.5); ABG OXYGEN SATURATION 89 % (94-100); ABG PCO2 37 MMHG (35-45); ABG PO2 64 MMHG (79-93); ABG TCO2 19.1 MMOL/L (21.0-31.0)
[2017-12-04 21:28] LABS: ABG PH 7.31 (7.37-7.43)
[2017-12-04 21:29] LABS: ALLENS TEST YES-POS; INSPIRED O2 30%; VENTILATOR YES
[2017-12-04] MEDS ORDERED: morphine INJ 4 MG/ML 1 ML (VIAL/SYRINGE) ONE (21:29)
[2017-12-04] MEDS ORDERED: morphine INJ 4 MG/ML 1 ML (VIAL/SYRINGE) IVP PRN (21:30)
[2017-12-04] MEDS ORDERED: SODIUM BICARB 8.4% 50 MEQ/50 ML (ABBOTT) SYR ONE (21:44)
[2017-12-05] VITALS (34 sets, daily range): BP systolic 139–173; BP diastolic 64–82
[2017-12-05] MEDS: PROPOFOL DRIP (ICU) 100 ML IV SCH ×2 (00:18→12:26)
[2017-12-05] MEDS ORDERED: NS (IVPB) 50 ML ONE ×2 (00:30→02:46)
[2017-12-05] MEDS: DEXMEDETOMIDINE IV SCH ×3 (00:38→07:23)
[2017-12-05] MEDS: NS IV SCH ×3 (00:38→07:23)
[2017-12-05] MEDS: NS IV 1000 ML 1,000 ML IV SCH (02:30)
[2017-12-05] MEDS: PIPERACILLIN/TAZO 4.5 GM/NS 100 ML IV SCH ×6 (02:31→17:05)
[2017-12-05 03:11] LABS: ABG BASE EXCESS -3.3 MMOL/L (-2.5-2.5); ABG OXYGEN SATURATION 98 % (94-100); ABG PCO2 38 MMHG (35-45); ABG PH 7.37 (7.37-7.43); ABG PO2 96 MMHG (79-93); ABG TCO2 22.3 MMOL/L (21.0-31.0); BASOPHILS % (AUTO) 0 % (0-10); EOSINOPHILS % (AUTO) 0 % (0-10); HEMATOCRIT 27 % (35-52); HEMOGLOBIN 8.6 G/DL (11.5-16.0); LYMPHOCYTES # (AUTO) 0.3 X 10^3 (1.0-4.0); LYMPHOCYTES % (AUTO) 2 % (12-44); MEAN CORPUSCULAR HEMOGLOBIN 28 PG (25-34); MEAN CORPUSCULAR HGB CONC 32 G/DL (32-36); MEAN CORPUSCULAR VOLUME 89 FL (80-99); MEAN PLATELET VOLUME 10.3 FL (7.4-10.4); MONOCYTES # (AUTO) 0.3 X 10^3 (0.0-1.0); MONOCYTES % (AUTO) 3 % (0-12); NEUTROPHILS # (AUTO) 11.5 X 10^3 (1.8-7.8); NEUTROPHILS % (AUTO) 95 % (42-75); PLATELET COUNT 326 10^3/uL (130-400); RED BLOOD COUNT 3.03 10^6/uL (4.35-5.85); RED CELL DISTRIBUTION WIDTH 14.4 % (10.0-14.5); WHITE BLOOD COUNT 12.1 10^3/uL (4.3-11.0)
[2017-12-05 03:14] LABS: ALLENS TEST YES-POS; INSPIRED O2 35%; PATIENT TEMP 98.3; VENTILATOR YES
[2017-12-05 03:28] LABS: CALCIUM 7.8 MG/DL (8.5-10.1); CREATININE SERUM 1.28 MG/DL (0.60-1.30); MAGNESIUM 2.3 MG/DL (1.8-2.4); PHOSPHORUS 2.8 MG/DL (2.3-4.7); POTASSIUM 3.7 MMOL/L (3.6-5.0)
[2017-12-05] MEDS: MAGNESIUM 1 GM/100 ML IVPB 100 ML IV SCH (03:37)
[2017-12-05] MEDS: POTASSIUM CL 10MEQ/50ML IVPB 50 ML IV SCH ×3 (03:37→15:57)
[2017-12-05] MEDS: KCL 20 MEQ TAB (K-DUR) PO SCH (03:38)
[2017-12-05] MEDS: meTOprolol 5 MG/5 ML (LOPRESSOR) VIAL IV SCH ×5 (04:03→21:20)
[2017-12-05] MEDS: fentaNYL INJECTION 1,250 MCG in NS (IVPB) 250 ML IV SCH ×2 (05:21→05:51)
[2017-12-05] MEDS: methylPREDNISolone 40 MG/ML (Solu-MEDROL) VIAL IV SCH ×3 (05:25→15:21)
[2017-12-05] MEDS: inSUlin ASPART (NovoLOG) 1 UNIT/0.01 ML (CHARGE PER UNIT) SC SCH ×3 (05:26→17:05)
--- NOTE | 2017-12-05 05:42 | Pulmonary Progress Note ---
Sepsis Event Evaluation Height, Weight, BMI Height: 5'3.00" Weight: 195lbs. 0.0oz. [id number]; 29.4 BMI Method:Stated Focused Exam Lactate Level 12/02/17 06:11: Lactic Acid Level 2.61*H 12/03/17 03:13: Lactic Acid Level 4.63*H 12/03/17 15:34: Lactic Acid Level 1.99 Exam Exam Vital Signs Date Time Temp Pulse Resp B/P (MAP) Pulse Ox O2 Delivery O2 Flow Rate FiO2 12/05/17 05:00 100 18 143/68 (93) 98 Mechanical Ventilator 30.00 12/05/17 04:12 101 20 98 35 12/05/17 04:01 101 16 97 12/05/17 04:00 102 14 139/66 (90) 98 Mechanical Ventilator 30.00 12/05/17 03:50 101 16 140/65 (90) 98 Mechanical Ventilator 30.00 12/05/17 03:48 101 19 98 35 12/05/17 03:40 99 Mechanical Ventilator 35 12/05/17 03:00 101 18 145/66 (92) 100 Mechanical Ventilator 35.00 12/05/17 02:50 98.3 Mechanical Ventilator 35.00 12/05/17 02:00 102 18 143/66 (91) 100 Mechanical Ventilator 35.00 12/05/17 01:30 102 17 144/66 (92) 100 Mechanical Ventilator 35.00 12/05/17 01:30 101 18 100 40 12/05/17 01:00 103 17 142/66 (91) 100 Mechanical Ventilator 40.00 12/05/17 01:00 103 12/05/17 00:18 102 17 145/65 100 Mechanical Ventilator 45.00 12/05/17 00:00 101 16 145/67 (93) 100 Mechanical Ventilator 40.00 12/04/17 23:50 99 Mechanical Ventilator 45 12/04/17 23:35 97.7 Mechanical Ventilator 45.00 12/04/17 23:10 112 19 100 45 12/04/17 23:10 112 16 129/61 (83) 100 Mechanical Ventilator 40.00 12/04/17 23:00 112 15 130/63 (85) 100 Mechanical Ventilator 45.00 12/04/17 22:00 124 15 98/56 (70) 100 Mechanical Ventilator 45.00 12/04/17 21:30 80 14 100 45 12/04/17 21:20 Mechanical Ventilator 45.00 12/04/17 21:00 134 31 133/68 (89) 91 Mechanical Ventilator 30.00 12/04/17 20:05 100 Mechanical Ventilator 30.00 12/04/17 20:00 98.1 104 30 156/69 (98) 97 Mechanical Ventilator 40.00 12/04/17 20:00 100 Mechanical Ventilator 30 12/04/17 19:50 111 27 90 30 12/04/17 19:00 83 23 121/59 (79) 97 Mechanical Ventilator 40.00 12/04/17 19:00 83 12/04/17 18:00 78 18 104/51 (68) 97 Mechanical Ventilator 40.00 12/04/17 17:00 72 16 107/52 (70) 96 Mechanical Ventilator 40.00 12/04/17 16:26 80 20 97 30 12/04/17 16:00 98 Mechanical Ventilator 30 12/04/17 16:00 77 20 107/52 (70) 96 Mechanical Ventilator 40.00 12/04/17 16:00 98.2 12/04/17 15:41 97.6 80 14 113/57 Mechanical Ventilator 30.00 12/04/17 15:00 80 18 116/59 (78) 97 Mechanical Ventilator 40.00 12/04/17 14:47 85 22 97 30 12/04/17 14:00 79 17 118/60 (79) 99 Mechanical Ventilator 40.00 12/04/17 13:00 79 12/04/17 13:00 79 18 120/61 (80) 99 Mechanical Ventilator 40.00 12/04/17 12:00 97.6 12/04/17 12:00 80 17 119/62 (81) 97 Mechanical Ventilator 40.00 12/04/17 12:00 100 Mechanical Ventilator 30 12/04/17 11:35 80 20 97 30 12/04/17 11:00 79 18 116/60 (78) 97 Mechanical Ventilator 40.00 12/04/17 10:00 81 20 121/63 (82) 100 Mechanical Ventilator 40.00 12/04/17 09:00 86 14 110/44 (66) 95 Mechanical Ventilator 40.00 12/04/17 08:45 83 20 97 60 12/04/17 08:00 84 18 119/59 (79) 100 Mechanical Ventilator 40.00 12/04/17 08:00 100 Mechanical Ventilator 50 12/04/17 07:35 86 18 121/60 100 Mechanical Ventilator 30.00 12/04/17 07:00 86 16 117/58 (77) 100 Mechanical Ventilator 40.00 12/04/17 07:00 98.7 12/04/17 07:00 86 12/04/17 06:35 89 24 99 30 12/04/17 06:14 88 17 112/56 (74) 100 Mechanical Ventilator 40.00 I & O 12/05/17 07:00 Intake Total 2315 ml Output Total 745 ml Balance 1570 ml Height & Weight Height: 5'3.00" Weight: 195lbs. 0.0oz. [id number]; 29.4 BMI Method:Stated General Appearance: No Apparent Distress, Obese HEENT: PERRL/EOMI, Pharynx Normal Neck: Full Range of Motion, Supple Respiratory: No Accessory Muscle Use, No Respiratory Distress, Other (Views rhonchi without wheezing noted throughout) Cardiovascular: Regular Rate, Rhythm, No Gallop, No JVD, No Murmur, Normal Peripheral Pulses Capillary Refill: Less Than 3 Seconds Extremity: Other (2+ edema of the hands 1-2+ of the feet to the mid tibia extremities are warm heel protectors on) Neurologic/Psychiatric: Alert, Oriented x3, No Motor/Sensory Deficits, Normal Mood/Affect, action finisher II-XII Norm as Tested Skin: Normal Color, Warm/Dry Lymphatic: No Adenopathy Results Lab Laboratory Tests 12/03/17 15:34 12/03/17 19:05 12/03/17 23:52 12/04/17 03:10 12/04/17 05:50 12/04/17 17:56 12/05/17 03:00 Assessment/Plan Assessment/Plan Acute respiratory failure -Ventilator - propofol pt is on 30mcg of propofol -Will start vent weaning tomorrow AM -Tube feeds. Pneumonia r/o early sepsis (no leukocytosis currently Tm is 99.7) -Zosyn and D/C Vanco -Influenza is negative -IVF -Michele cultures pending -urine strep and legionella ag pending Acute renal failure secondary to Lasix yesterday will hold off Moderate to severe aortic stenosis with probable hemolysis -Check haptoglobin and peripheral smear -Cardiology is following Hemoptysis with blood clots -Hold eliquis -S.P bronchoscopy - No signs of hemoptysis Metabolic lactic acidosis -LA is now normal -IVF -Repeat Anemia -H&H Q12 Dehydration -IVF PAF hx -Will hold eliquis for now secondary to hemoptysis Diastolic CHF hx - currently appears stable -Monitor CAD DM II No hx of tobacco use at bedside all questions answered. NICOLA MCCLELLAN DO Dec 05, 2017 05:41
[2017-12-05] MEDS ORDERED: FUROSEMIDE 40 MG/4 ML INJ (LASIX) IVP ONE (06:00)
[2017-12-05] MEDS: RT-ALBUTEROL/IPRATROPIUM 3 ML (DUONEB) VIAL INH SCH ×3 (06:37→19:14)
--- NOTE | 2017-12-05 07:31 | Diagnostic Imaging Report ---
INDICATION: Pneumonia Portable chest shows cardiomegaly. There are persistent diffuse bilateral infiltrates. There may be a small effusion. There is no pneumothorax. The ET tube and OG tube remain in place. The overall appearance is similar to the 12/04/2017 study. IMPRESSION: Stable chest with persistent diffuse bilateral infiltrates. Dictated by: Dictated on workstation # [id number]
[2017-12-05] MEDS ORDERED: DEXMEDETOMIDINE INJECTION 400 MCG in NS (IVPB) 96 ML IV SCH ×2 (08:00→10:30)
[2017-12-05] MEDS: PANTOPRAZOLE 40 MG (PROTONIX) VIAL IV SCH (08:05)
[2017-12-05] MEDS: ASPIRIN 81 MG CHEW (CHILDREN'S ASA) NG SCH (08:05)
--- NOTE | 2017-12-05 11:02 | Progress Note-Hospitalist ---
Subjective HPI/CC On Admission Date Seen by Provider: Dec 05, 2017 Time Seen by Provider: 08:00 Subjective/Events-last exam Patient sedated on vent appears comfortable. Staff reports that she did well with weaning parameters with game plan of possible extubation tomorrow per Dr. Burrows. No concerns voiced per staff. Focused Exam Lactate Level 12/03/17 03:13: Lactic Acid Level 4.63*H 12/03/17 15:34: Lactic Acid Level 1.99 Objective Exam Vital Signs Vital Signs Date Time Temp Pulse Resp B/P (MAP) Pulse Ox O2 Delivery O2 Flow Rate FiO2 12/05/17 10:34 90 18 98 25 12/05/17 10:00 165/82 (109) Mechanical Ventilator 30.00 12/05/17 02:50 98.3 Capillary Refill : Less Than 3 Seconds General Appearance: No Apparent Distress, Chronically ill, Obese Respiratory: No Accessory Muscle Use, No Respiratory Distress, Other (Coarse rhonchi throughout without wheezing) Cardiovascular: Regular Rate, Rhythm, No Edema, No Gallop, No JVD, Normal Peripheral Pulses, Systolic Murmur (2/6 systolic ejection murmur heard best at the left lower sternal border no S3 or S4 appreciated.) Gastrointestinal: Normal Bowel Sounds, No Organomegaly, No Pulsatile Mass, Soft Extremity: Other (Extremity edema stable 2+ of the upper extremities 1+ lower extremities warm) Results/Procedures Lab Laboratory Tests 12/04/17 17:56 12/05/17 03:00 Patient resulted labs reviewed. Assessment/Plan Assessment and Plan Assess & Plan/Chief Complaint 1. Pneumonitis with sepsis possibly aspiration in etiology with secondary non- hypercapnic respiratory failure.. Patient is ventilating easily on 30 percent with only mild impairment in AA gradient currently. The plan per Dr. Burrows is to allow the patient to rest today there may be a little increased pulmonary congestion so she is receiving IV Lasix today with a good chance of extubation tomorrow if she does well with pressure support trial. present at bedside questions answered. X-ray per radiology's stable alveolar interstitial infiltrate pattern. 2. Per her primary care provider she has not been caring for her diabetes and is been under poor control currently blood sugars are in the 200 range likely due to Solu-Medrol we'll continue to monitor with sliding scale insulin. 3. Baseline stage III chronic renal disease secondary to diabetes and hypertension. 4. Ischemic cardiomyopathy history of past anterior ND last echo per Dr. LOPEZ revealing relatively well preserved systolic function with estimated ejection fraction of 50 percent patient does have stage III diastolic dysfunction. Critical Care Critical Care: Critically Ill Patient Clinical Quality Measures DVT/VTE Risk/Contraindication: Risk Factor Score Per Nursin RFS Level Per Nursing on Admit: 3=High RUBENS BOURGEOIS MD Dec 05, 2017 11:02
[2017-12-05] MEDS: DILTIAZEM IV FOR DRIP 125 MG in NS (IVPB) 100 ML IV SCH (12:26)
--- NOTE | 2017-12-05 15:00 | Progress Note-Cardiology ---
Cardiology SOAP Progress Note Subjective: Still on mech vent and unable to communicate Objective: I&O/Vital Signs 12/05/17 12/05/17 12/05/17 12/05/17 03:00 03:40 03:48 03:50 Pulse 101 101 101 Resp 18 19 16 B/P (MAP) 145/66 (92) 140/65 (90) Pulse Ox 100 99 98 98 O2 Delivery Mechanical Ventilator Mechanical Ventilator Mechanical Ventilator O2 Flow Rate 35.00 30.00 FiO2 35 35 12/05/17 12/05/17 12/05/17 12/05/17 04:00 04:01 04:12 05:00 Pulse 102 101 101 100 Resp 14 16 20 18 B/P (MAP) 139/66 (90) 143/68 (93) Pulse Ox 98 97 98 98 O2 Delivery Mechanical Ventilator Mechanical Ventilator O2 Flow Rate 30.00 30.00 FiO2 35 12/05/17 12/05/17 12/05/17 12/05/17 06:00 06:28 06:43 06:43 Pulse 102 100 Resp 19 19 B/P (MAP) 143/66 (91) Pulse Ox 97 100 O2 Delivery Mechanical Ventilator Mechanical Ventilator O2 Flow Rate 30.00 25.00 FiO2 30 25 12/05/17 12/05/17 12/05/17 12/05/17 07:00 07:00 07:00 08:00 Temp 98.9 Pulse 103 103 101 Resp 16 16 B/P (MAP) 144/65 (91) 153/69 (97) Pulse Ox 96 96 O2 Delivery Mechanical Ventilator Mechanical Ventilator O2 Flow Rate 30.00 30.00 12/05/17 12/05/17 12/05/17 12/05/17 08:00 08:43 09:00 10:00 Pulse 95 96 93 Resp 18 18 16 B/P (MAP) 158/75 (102) 165/82 (109) Pulse Ox 98 97 98 100 O2 Delivery Mechanical Ventilator Mechanical Ventilator Mechanical Ventilator O2 Flow Rate 30.00 30.00 FiO2 30 25 12/05/17 12/05/17 12/05/17 12/05/17 10:34 11:00 12:00 12:00 Temp 98.3 Pulse 90 92 Resp 18 18 B/P (MAP) 156/65 (95) Pulse Ox 98 97 98 O2 Delivery Mechanical Ventilator Mechanical Ventilator O2 Flow Rate 30.00 FiO2 25 30 12/05/17 12/05/17 12/05/17 12/05/17 12:00 12:26 13:00 13:00 Temp 98.2 Pulse 87 90 90 Resp 18 16 B/P (MAP) 154/67 (96) 161/75 (103) Pulse Ox 98 100 O2 Delivery Mechanical Ventilator Mechanical Ventilator O2 Flow Rate 30.00 30.00 12/05/17 12/05/17 13:54 14:00 Pulse 90 89 Resp 19 15 B/P (MAP) 158/70 (99) Pulse Ox 100 100 O2 Delivery Mechanical Ventilator O2 Flow Rate 30.00 FiO2 25 12/05/17 00:00 Intake Total 765 ml Output Total 345 ml Balance 420 ml Weight (Pounds): 195 Weight (Ounces): 0.0 Weight (Calculated Kilograms): 88.339089 Constitutional: well-developed, well-nourished, other (intubated and on mech vent) Respiratory: No accessory muscle use, No respiratory distress; chest expansion is symmetric, chest is bilaterally symmetric, other (diminished throughout; R>L) Cardiovascular: regular rate-rhythm; No JVD; S1 and S2, systolic murmur (3/6 MSM) Gastrointestional: No tender; soft, round; No guarding, No rebound; audible bowel sounds Extremities: No clubbing, No cyanosis; no lower extremity edema bilateral Neurologic/Psychiatric: other (on mech vent; seems to be able to move all limbs ) Skin: normal color, warm/dry; No rash, No ulcerations Results/Procedures: Labs Laboratory Tests 12/04/17 17:30: Glucometer 151H 12/04/17 17:56: Hemoglobin 8.1L, Hematocrit 25L 12/04/17 21:19: Blood Gas Puncture Site RIGHT RADIAL, Blood Gas Patient Temperature 98.0, Arterial Blood pH 7.31*L, Arterial Blood Partial Pressure CO2 37, Arterial Blood Partial Pressure O2 64L, Arterial Blood HCO3 18L, Arterial Blood Total CO2 19.1L, Arterial Blood Oxygen Saturation 89L, Arterial Blood Base Excess - 7.1L, Sal Test YES-POS, Blood Gas Ventilator Setting YES, Blood Gas Inspired Oxygen 30% 12/04/17 21:40: Triglycerides Level 174H 12/04/17 23:41: Glucometer 218H 12/05/17 03:00: White Blood Count 12.1H, Red Blood Count 3.03L, Hemoglobin 8.6L, Hematocrit 27L , Mean Corpuscular Volume 89, Mean Corpuscular Hemoglobin 28, Mean Corpuscular Hemoglobin Concent 32, Red Cell Distribution Width 14.4, Platelet Count 326, Mean Platelet Volume 10.3, Neutrophils (%) (Auto) 95H, Lymphocytes (%) (Auto) 2L , Monocytes (%) (Auto) 3, Eosinophils (%) (Auto) 0, Basophils (%) (Auto) 0, Neutrophils # (Auto) 11.5H, Lymphocytes # (Auto) 0.3L, Monocytes # (Auto) 0.3, Eosinophils # (Auto) 0.0, Basophils # (Auto) 0.0, Blood Gas Puncture Site RIGHT RADIAL, Blood Gas Patient Temperature 98.3, Arterial Blood pH 7.37, Arterial Blood Partial Pressure CO2 38, Arterial Blood Partial Pressure O2 96H, Arterial Blood HCO3 21L, Arterial Blood Total CO2 22.3, Arterial Blood Oxygen Saturation 98, Arterial Blood Base Excess -3.3L, Sal Test YES-POS, Blood Gas Ventilator Setting YES, Blood Gas Inspired Oxygen 35%, Sodium Level 145, Potassium Level 3.7, Chloride Level 115H, Carbon Dioxide Level 21, Anion Gap 9, Blood Urea Nitrogen 23H, Creatinine 1.28, Estimat Glomerular Filtration Rate 40, BUN/ Creatinine Ratio 18, Glucose Level 212H, Calcium Level 7.8L, Phosphorus Level 2.8, Magnesium Level 2.3 12/05/17 11:38: Glucometer 220H Microbiology 12/02/17 Blood Culture - Preliminary, Resulted No growth 12/03/17 Mycobacterial Culture - Preliminary, Resulted 12/02/17 Urine Culture - Final, Complete Klebsiella pneumoniae See Report Laboratory Tests 12/03/17 15:34 12/03/17 19:05 12/03/17 23:52 12/04/17 03:10 12/04/17 05:50 12/04/17 17:56 12/05/17 03:00 A/P: Assessment: Pneumonia with sepsis - management per Medical [facility] Pulmonary Services Hemoptysis, likely due to pneumonia Blood clots in stools, suggestive of GI bleed or swallowed blood from hemoptysis. W/u for this is with the [employer] Chronic diastolic CHF PAF, first documented on tele strips [facility] in early 2016. Currently in NSR H/o ischemic cm. LVEF on 02/18/17 was 35%. Echo of 05/26/17: LVEF 50%, grade 3 rehman dysfunction, MAC, mild MR, mod to severe , PASP 40-45 mmHg CAD. S/p prox LAD stenting by Dr Obrien at [facility] on 02/20/17: Promus 2.5x24. Cath on 02/18/17 prior to cor stenting showed dual LAD, one of which was proximally occluded and the other was severely diseased. Rest of the cors had mod dz MPI of 01/12/17: anteroapical infarction w/o significant ischemia; LVEF 39% Dizziness and vertigo, improved after reduction of anti-htn and Invokana treatment in early Apr 2015. MRI head on 05/10/15 (Dr Mariano) did not show lesions other than possibility of chronic microvascular disease Valvular heart disease. Cath of 02/18/17 showed mod MR and a gradient across AoV of 25-30 mmHg. Mod with valve area 1.4 cm sq and mean gradient across aortic valve of 23 mmHg on echo of 01/08/17. Subsequent echo as noted above DM II CKD stage 3, likely diabetic nephropathy. eGFR on 05/25/17 is 44 Hyperlipidemia, but has intolerance to statins (severe joint pains) Hypothyroidism, treated with thyroid replacement therapy. TSH normal (2.19) on Bilateral leg and foot discomfort which has been diagnosed as neuropathy. Normal bilat EDDY in June 2014 Mild bilat carotid arterial disease on carotid u/s of 06/08/17 Abn ECG. ECG of 05/13/17: NSR, old ASMI H/o surgeries: S/p hysterectomy w/o oophorectomy; S/p bilateral knee replacement ; H/o R rotator cuff surgery Plan: * Complex management due to multiple comorbidities * Currently with vol overload. Furosemide today * Monitor labs * Consider blood transfusion if Hgb drops below 8 DEMARIO LOPEZ MD FACP FAC CCDS Dec 05, 2017 15:00
[2017-12-05] MEDS ORDERED: FUROSEMIDE 40 MG/4 ML INJ (LASIX) ONE (15:11)
[2017-12-05] MEDS: DEXMEDETOMIDINE INJECTION 1,000 MCG in NS (IVPB) 240 ML IV SCH ×2 (15:21→23:54)
[2017-12-05] MEDS ORDERED: FUROSEMIDE 40 MG/4 ML INJ (LASIX) IVP NR (15:30)
[2017-12-06] VITALS (30 sets, daily range): BP systolic 110–170; BP diastolic 43–95
[2017-12-06] MEDS: inSUlin ASPART (NovoLOG) 1 UNIT/0.01 ML (CHARGE PER UNIT) SC SCH ×5 (00:06→23:51)
[2017-12-06] MEDS: methylPREDNISolone 40 MG/ML (Solu-MEDROL) VIAL IV SCH ×5 (00:07→23:51)
[2017-12-06] MEDS: fentaNYL INJECTION 100 MCG/2 ML AMP IV PRN (00:10)
[2017-12-06] MEDS: meTOprolol 5 MG/5 ML (LOPRESSOR) VIAL IV SCH ×7 (00:28→23:51)
[2017-12-06] MEDS: PIPERACILLIN/TAZO 4.5 GM/NS 100 ML IV SCH ×6 (03:44→18:27)
[2017-12-06] MEDS: NS IV 1000 ML 1,000 ML IV SCH ×2 (04:07→23:56)
[2017-12-06 04:10] LABS: ABG BASE EXCESS -3.2 MMOL/L (-2.5-2.5); ABG OXYGEN SATURATION 98 % (94-100); ABG PCO2 35 MMHG (35-45); ABG PH 7.39 (7.37-7.43); ABG PO2 95 MMHG (79-93); ABG TCO2 22.1 MMOL/L (21.0-31.0)
[2017-12-06 04:11] LABS: BASOPHILS % (AUTO) 0 % (0-10); EOSINOPHILS % (AUTO) 0 % (0-10); HEMATOCRIT 28 % (35-52); HEMOGLOBIN 9.1 G/DL (11.5-16.0); LYMPHOCYTES # (AUTO) 0.3 X 10^3 (1.0-4.0); LYMPHOCYTES % (AUTO) 3 % (12-44); MEAN CORPUSCULAR HEMOGLOBIN 29 PG (25-34); MEAN CORPUSCULAR HGB CONC 33 G/DL (32-36); MEAN CORPUSCULAR VOLUME 88 FL (80-99); MEAN PLATELET VOLUME 10.3 FL (7.4-10.4); MONOCYTES # (AUTO) 0.4 X 10^3 (0.0-1.0); MONOCYTES % (AUTO) 4 % (0-12); NEUTROPHILS % (AUTO) 94 % (42-75); PLATELET COUNT 318 10^3/uL (130-400); RED BLOOD COUNT 3.12 10^6/uL (4.35-5.85); RED CELL DISTRIBUTION WIDTH 14.2 % (10.0-14.5); WHITE BLOOD COUNT 10.7 10^3/uL (4.3-11.0)
[2017-12-06 04:12] LABS: ALLENS TEST YES-POS; INSPIRED O2 25%; PATIENT TEMP 98.4; VENTILATOR YES
[2017-12-06 04:28] LABS: CALCIUM 8.2 MG/DL (8.5-10.1); CREATININE SERUM 1.48 MG/DL (0.60-1.30); MAGNESIUM 2.3 MG/DL (1.8-2.4); PHOSPHORUS 3.6 MG/DL (2.3-4.7); POTASSIUM 3.8 MMOL/L (3.6-5.0)
[2017-12-06] MEDS: POTASSIUM CL 10MEQ/50ML IVPB 50 ML IV SCH (06:03)
[2017-12-06] MEDS: fentaNYL INJECTION 1,250 MCG in NS (IVPB) 250 ML IV SCH (06:03)
[2017-12-06] MEDS: KCL 20 MEQ TAB (K-DUR) PO SCH (06:04)
[2017-12-06] MEDS: MAGNESIUM 1 GM/100 ML IVPB 100 ML IV SCH (06:04)
[2017-12-06] MEDS: RT-ALBUTEROL/IPRATROPIUM 3 ML (DUONEB) VIAL INH SCH ×3 (07:27→20:02)
--- NOTE | 2017-12-06 07:31 | Diagnostic Imaging Report ---
INDICATION: Pneumonia. COMPARISON: 12/05. FINDINGS: 5 lobe infiltrates and support apparatus are unchanged. There are likely small effusions not definitely changed. IMPRESSION: Extensive 5 lobe infiltrates, small pleural effusions and support apparatus all unchanged. Dictated by: Dictated on workstation # [id number]
--- NOTE | 2017-12-06 07:54 | Pulmonary Progress Note ---
Sepsis Event Evaluation Height, Weight, BMI Height: 5'3.00" Weight: 200lbs. 3.0oz. 90.936299ra; 29.4 BMI Method:Stated Focused Exam Lactate Level 12/03/17 15:34: Lactic Acid Level 1.99 Exam Exam Vital Signs Date Time Temp Pulse Resp B/P (MAP) Pulse Ox O2 Delivery O2 Flow Rate FiO2 12/06/17 07:27 98 19 100 25 12/06/17 07:23 97.6 12/06/17 06:00 95 24 143/52 (82) 100 Mechanical Ventilator 25.00 12/06/17 05:00 80 18 157/58 (91) 100 Mechanical Ventilator 25.00 12/06/17 04:25 78 18 100 25 12/06/17 04:23 78 22 100 12/06/17 04:19 89 26 100 25 12/06/17 04:00 82 17 168/69 (102) 100 Mechanical Ventilator 25.00 12/06/17 04:00 100 Mechanical Ventilator 25 12/06/17 04:00 96.8 12/06/17 03:00 85 17 167/71 (103) 100 Mechanical Ventilator 25.00 12/06/17 02:00 87 18 164/68 (100) 93 Mechanical Ventilator 25.00 12/06/17 01:32 90 19 100 25 12/06/17 01:00 90 18 165/69 (101) 94 Mechanical Ventilator 25.00 12/06/17 01:00 90 12/06/17 00:00 97 14 165/65 (98) 94 Mechanical Ventilator 25.00 12/06/17 00:00 100 Mechanical Ventilator 25 12/05/17 23:55 99.3 12/05/17 23:00 99 17 172/67 (102) 100 Mechanical Ventilator 25.00 12/05/17 22:00 91 17 166/69 (101) 100 Mechanical Ventilator 25.00 12/05/17 21:47 91 19 100 25 12/05/17 21:00 93 16 164/66 (98) 100 Mechanical Ventilator 25.00 12/05/17 20:00 100 Mechanical Ventilator 25 12/05/17 20:00 98.2 12/05/17 20:00 98 18 156/64 (94) 100 Mechanical Ventilator 25.00 12/05/17 19:14 88 19 100 25 12/05/17 19:00 86 12/05/17 19:00 86 17 153/68 (96) 100 Mechanical Ventilator 25.00 12/05/17 18:00 99 22 147/64 (91) 100 Mechanical Ventilator 25.00 12/05/17 17:00 98 18 170/77 (108) 100 Mechanical Ventilator 25.00 12/05/17 16:34 105 19 100 25 12/05/17 16:00 99.0 12/05/17 16:00 93 17 173/77 (109) 100 Mechanical Ventilator 25.00 12/05/17 16:00 98 Mechanical Ventilator 25 12/05/17 15:00 103 17 169/70 (103) 100 Mechanical Ventilator 25.00 12/05/17 14:00 89 15 158/70 (99) 100 Mechanical Ventilator 25.00 12/05/17 13:54 90 19 100 25 12/05/17 13:00 90 12/05/17 13:00 90 16 161/75 (103) 100 Mechanical Ventilator 25.00 12/05/17 12:26 98.2 12/05/17 12:00 87 18 154/67 (96) 98 Mechanical Ventilator 30.00 12/05/17 12:00 98.3 12/05/17 12:00 98 Mechanical Ventilator 25 12/05/17 11:00 92 18 156/65 (95) 97 Mechanical Ventilator 25.00 12/05/17 10:34 90 18 98 25 12/05/17 10:00 93 16 165/82 (109) 100 Mechanical Ventilator 25.00 12/05/17 09:00 96 18 158/75 (102) 98 Mechanical Ventilator 25.00 12/05/17 08:43 95 18 97 25 12/05/17 08:00 98 Mechanical Ventilator 25 12/05/17 08:00 101 16 153/69 (97) 96 Mechanical Ventilator 25.00 I & O 12/06/17 07:00 Intake Total 660 ml Output Total 3100 ml Balance -2440 ml Height & Weight Height: 5'3.00" Weight: 200lbs. 3.0oz. 90.795737pe; 29.4 BMI Method:Stated General Appearance: No Apparent Distress, Obese HEENT: PERRL/EOMI, Pharynx Normal Neck: Full Range of Motion, Supple Respiratory: No Accessory Muscle Use, No Respiratory Distress, Other (Views rhonchi without wheezing noted throughout) Cardiovascular: Regular Rate, Rhythm, No Gallop, No JVD, No Murmur, Normal Peripheral Pulses Capillary Refill: Less Than 3 Seconds Extremity: Other (2+ edema of the hands 1-2+ of the feet to the mid tibia extremities are warm heel protectors on) Neurologic/Psychiatric: Alert, Oriented x3, No Motor/Sensory Deficits, Normal Mood/Affect, occupational therapy department chair II-XII Norm as Tested Skin: Normal Color, Warm/Dry Lymphatic: No Adenopathy Results Lab Laboratory Tests 12/04/17 17:56 12/05/17 03:00 12/06/17 03:57 Assessment/Plan Assessment/Plan Acute respiratory failure -Ventilator - propofol pt is on 30mcg of propofol -Add precedex, D/C Fentanyl, and wean propofol down -Will start vent weaning this AM -Tube feeds. Pneumonia r/o early sepsis (no leukocytosis currently Tm is 99.7) -Zosyn and D/C Vanco -Influenza is negative -IVF -Michele cultures pending -urine strep and legionella ag pending Acute renal failure secondary to Lasix yesterday will hold off Moderate to severe aortic stenosis with probable hemolysis -Check haptoglobin and peripheral smear -Cardiology is following Hemoptysis with blood clots -Hold eliquis -S.P bronchoscopy - No signs of hemoptysis Metabolic lactic acidosis -LA is now normal -IVF -Repeat Anemia -H&H Q12 Dehydration -IVF PAF hx -Will hold eliquis for now secondary to hemoptysis Diastolic CHF hx - currently appears stable -Monitor CAD DM II No hx of tobacco use at bedside all questions answered. NICOLA MCCLELLAN DO Dec 06, 2017 07:54
--- NOTE | 2017-12-06 08:23 | Physical Therapy Progress Note ---
Therapy Progress Note Patient is currently on mechanical ventilator. PT to continue to monitor patient status and will assess when medically stable. NAVIN SANTILLAN PT Dec 06, 2017 08:23
--- NOTE | 2017-12-06 08:41 | Progress Note ---
Subjective Date Seen by a Provider: Dec 06, 2017 Time Seen by a Provider: 08:41 Focused Exam Lactate Level 12/03/17 15:34: Lactic Acid Level 1.99 Objective Exam Last Set of Vital Signs Vital Signs Date Time Temp Pulse Resp B/P (MAP) Pulse Ox O2 Delivery O2 Flow Rate FiO2 12/06/17 07:27 98 19 100 25 12/06/17 07:23 97.6 12/06/17 06:00 143/52 (82) Mechanical Ventilator 25.00 Capillary Refill : Less Than 3 Seconds I&O Intake and Output 12/06/17 00:00 Intake Total 1830 ml Output Total 2600 ml Balance -770 ml IV Total 1500 ml Tube Feeding 330 ml Output Urine Total 2600 ml General: Other ( INTUBATED, SEDATED) Neck: Supple Lungs: Other (DECREASED AIR MOVEMENT THROUGHOUT) Heart: Regular Rate, Other (II/ SABRINA) Extremities: Other (EDEMA OF HANDS) Psych/Mental Status: Other (SEDATED ON VENT) Results Lab Laboratory Tests 12/05/17 11:38: Glucometer 220H 12/05/17 15:17: Glucometer 212H 12/05/17 17:01: Glucometer 224H 12/06/17 00:01: Glucometer 227H 12/06/17 03:57: White Blood Count 10.7, Red Blood Count 3.12L, Hemoglobin 9.1L, Hematocrit 28L, Mean Corpuscular Volume 88, Mean Corpuscular Hemoglobin 29, Mean Corpuscular Hemoglobin Concent 33, Red Cell Distribution Width 14.2, Platelet Count 318, Mean Platelet Volume 10.3, Neutrophils (%) (Auto) 94H, Lymphocytes (%) (Auto) 3L , Monocytes (%) (Auto) 4, Eosinophils (%) (Auto) 0, Basophils (%) (Auto) 0, Neutrophils # (Auto) 10.0H, Lymphocytes # (Auto) 0.3L, Monocytes # (Auto) 0.4, Eosinophils # (Auto) 0.0, Basophils # (Auto) 0.0, Sodium Level 145, Potassium Level 3.8, Chloride Level 114H, Carbon Dioxide Level 20L, Anion Gap 11, Blood Urea Nitrogen 34H, Creatinine 1.48H, Estimat Glomerular Filtration Rate 34, BUN/ Creatinine Ratio 23, Glucose Level 216H, Calcium Level 8.2L, Phosphorus Level 3.6, Magnesium Level 2.3 12/06/17 04:05: Blood Gas Puncture Site RIGHT RADIAL, Blood Gas Patient Temperature 98.4, Arterial Blood pH 7.39, Arterial Blood Partial Pressure CO2 35, Arterial Blood Partial Pressure O2 95H, Arterial Blood HCO3 21L, Arterial Blood Total CO2 22.1 , Arterial Blood Oxygen Saturation 98, Arterial Blood Base Excess -3.2L, Sal Test YES-POS, Blood Gas Ventilator Setting YES, Blood Gas Inspired Oxygen 25% Microbiology 12/02/17 Blood Culture - Preliminary, Resulted No growth 12/03/17 Mycobacterial Culture - Preliminary, Resulted 12/02/17 Urine Culture - Final, Complete Klebsiella pneumoniae See Report Assessment/Plan Assessment/Plan Assess & Plan/Chief Complaint SEPSIS PNEUMONIA RESPIRATORY DISTRESS HYPERTENSION HEMOPTYSIS DIABETES MELLITUS CORONARY ARTERY DISEASE ATRIAL FIBRILLATION UTI - KLEBSIELLA SEPSIS WITH PNEUMONIA AND RESPIRATORY DISTRESS - ON VENTILATORY SUPPORT -PLAN IS TO EXTUBATE PT TODAY IF WEANING TOLERATED. CHEST XRAY CONTINUES TO SHOW 5 LOBE INFILTRATE. HYPERTENSION - RESUMED HOME MEDICATIONS. DIABETES MELLITUS - WILL INITIATE ICU HYPERGLYCEMIA PROTOCOL UNTIL PT TAKING NORMAL FOOD INTAKE AND THEN WILL CONSIDER RESUMPTION OF NORMAL HOME REGIMEN. CORONARY ARTERY DISEASE - CONSULT TO CARDIOLOGY HAS BEEN PLACED AFIB - CONSULT TO CARDIOLOGY. UTI - KLEBSIELLA - ON ZOSYN - CONTINUE WITH CURRENT REGIMEN FAMILY AWARE OF HOW ILLBg BARNES IS AND ARE STILL WANTING TO PURSUE CONTINUED CARE AT THIS TIME. Clinical Quality Measures Admission Status Admission Dx SEPSIS PNEUMONIA RESPIRATORY DISTRESS HYPERTENSION HEMOPTYSIS DIABETES MELLITUS CORONARY ARTERY DISEASE ATRIAL FIBRILLATION SEPSIS WITH PNEUMONIA AND RESPIRATORY DISTRESS - OXYGEN VIA NASAL CANNULA, SEPSIS PROTOCOL INITIATED, MONITOR SERIAL CHEST XRAYS - PLANNING ON BRONCHOSCOPY TOMORROW MORNING. HYPERTENSION - RESUMED HOME MEDICATIONS HEMOPTYSIS - SUPPORTIVE CARE, BRONCHOSCOPY PLANNED, IF NEGATIVE, THEN LIKELY WILL PROCEED TO EGD DIABETES MELLITUS - WILL INITIATE ICU HYPERGLYCEMIA PROTOCOL UNTIL PT TAKING NORMAL FOOD INTAKE AND THEN WILL CONSIDER RESUMPTION OF NORMAL HOME REGIMEN. CORONARY ARTERY DISEASE - CONSULT TO CARDIOLOGY HAS BEEN PLACED AFIB - CONSULT TO CARDIOLOGY. DVT/VTE Risk/Contraindication: Risk Factor Score Per Nursin RFS Level Per Nursing on Admit: 3=High KURTIS DIEGO MD Dec 06, 2017 08:41
[2017-12-06] MEDS: ASPIRIN 81 MG CHEW (CHILDREN'S ASA) NG SCH (09:07)
[2017-12-06] MEDS: PANTOPRAZOLE 40 MG (PROTONIX) VIAL IV SCH (09:07)
[2017-12-06 10:34] LABS: ABG BASE EXCESS -3.1 MMOL/L (-2.5-2.5); ABG OXYGEN SATURATION 91 % (94-100); ABG PCO2 33 MMHG (35-45); ABG PH 7.42 (7.37-7.43); ABG PO2 65 MMHG (79-93); ABG TCO2 21.5 MMOL/L (21.0-31.0)
[2017-12-06 10:36] LABS: ALLENS TEST ART LINE; INSPIRED O2 21%; VENTILATOR YES
--- NOTE | 2017-12-06 10:39 | Progress Note-Cardiology ---
Cardiology SOAP Progress Note Subjective: Still intubated and on mech vent and unable to communicate verbally. Does appear more awake and responsive today and indicates frustration Objective: I&O/Vital Signs 12/05/17 12/05/17 12/06/17 12/06/17 23:00 23:55 00:00 00:00 Temp 99.3 Pulse 99 97 Resp 17 14 B/P (MAP) 172/67 (102) 165/65 (98) Pulse Ox 100 100 94 O2 Delivery Mechanical Ventilator Mechanical Ventilator Mechanical Ventilator O2 Flow Rate 25.00 25.00 FiO2 25 12/06/17 12/06/17 12/06/17 12/06/17 01:00 01:00 01:32 02:00 Pulse 90 90 90 87 Resp 18 18 B/P (MAP) 165/69 (101) 164/68 (100) Pulse Ox 94 100 93 O2 Delivery Mechanical Ventilator Mechanical Ventilator O2 Flow Rate 25.00 25.00 FiO2 25 12/06/17 12/06/17 12/06/17 12/06/17 03:00 04:00 04:00 04:00 Temp 96.8 Pulse 85 82 Resp 17 17 B/P (MAP) 167/71 (103) 168/69 (102) Pulse Ox 100 100 100 O2 Delivery Mechanical Ventilator Mechanical Ventilator Mechanical Ventilator O2 Flow Rate 25.00 25.00 FiO2 25 12/06/17 12/06/17 12/06/17 12/06/17 04:19 04:23 04:25 05:00 Pulse 89 78 78 80 Resp 26 18 18 B/P (MAP) 157/58 (91) Pulse Ox 100 100 100 100 O2 Delivery Mechanical Ventilator O2 Flow Rate 25.00 FiO2 25 25 12/06/17 12/06/17 12/06/17 12/06/17 06:00 07:00 07:00 07:23 Temp 97.6 Pulse 95 96 98 Resp 24 16 B/P (MAP) 143/52 (82) 141/48 (79) Pulse Ox 100 100 O2 Delivery Mechanical Ventilator Mechanical Ventilator O2 Flow Rate 25.00 25.00 12/06/17 12/06/17 12/06/17 12/06/17 07:27 08:00 08:00 08:00 Temp 99.0 Pulse 98 112 Resp 23 B/P (MAP) 128/44 (72) Pulse Ox 100 98 97 O2 Delivery Mechanical Ventilator Mechanical Ventilator O2 Flow Rate 21.00 FiO2 25 21 12/06/17 12/06/17 12/06/17 12/06/17 08:40 09:00 09:23 10:00 Pulse 113 118 105 109 Resp 22 23 21 23 B/P (MAP) 120/52 (74) 110/80 (90) Pulse Ox 98 98 93 97 O2 Delivery Mechanical Ventilator Mechanical Ventilator O2 Flow Rate 21.00 21.00 FiO2 25 21 12/06/17 00:00 Intake Total 180 ml Output Total 1850 ml Balance -1670 ml Weight (Pounds): 200 Weight (Ounces): 3.0 Weight (Calculated Kilograms): 90.627686 Constitutional: well-developed, well-nourished, other (intubated and on mech vent) Respiratory: No accessory muscle use, No respiratory distress; chest expansion is symmetric, chest is bilaterally symmetric, other (diminished throughout; R>L) Cardiovascular: regular rate-rhythm; No JVD; S1 and S2, systolic murmur (3/6 MSM) Gastrointestional: No tender; soft, round; No guarding, No rebound; audible bowel sounds Extremities: No clubbing, No cyanosis; no lower extremity edema bilateral Neurologic/Psychiatric: other (on mech vent; seems to be able to move all limbs ) Skin: normal color, warm/dry; No rash, No ulcerations Results/Procedures: Labs Laboratory Tests 12/05/17 11:38: Glucometer 220H 12/05/17 15:17: Glucometer 212H 12/05/17 17:01: Glucometer 224H 12/06/17 00:01: Glucometer 227H 12/06/17 03:57: White Blood Count 10.7, Red Blood Count 3.12L, Hemoglobin 9.1L, Hematocrit 28L, Mean Corpuscular Volume 88, Mean Corpuscular Hemoglobin 29, Mean Corpuscular Hemoglobin Concent 33, Red Cell Distribution Width 14.2, Platelet Count 318, Mean Platelet Volume 10.3, Neutrophils (%) (Auto) 94H, Lymphocytes (%) (Auto) 3L , Monocytes (%) (Auto) 4, Eosinophils (%) (Auto) 0, Basophils (%) (Auto) 0, Neutrophils # (Auto) 10.0H, Lymphocytes # (Auto) 0.3L, Monocytes # (Auto) 0.4, Eosinophils # (Auto) 0.0, Basophils # (Auto) 0.0, Sodium Level 145, Potassium Level 3.8, Chloride Level 114H, Carbon Dioxide Level 20L, Anion Gap 11, Blood Urea Nitrogen 34H, Creatinine 1.48H, Estimat Glomerular Filtration Rate 34, BUN/ Creatinine Ratio 23, Glucose Level 216H, Calcium Level 8.2L, Phosphorus Level 3.6, Magnesium Level 2.3 12/06/17 04:05: Blood Gas Puncture Site RIGHT RADIAL, Blood Gas Patient Temperature 98.4, Arterial Blood pH 7.39, Arterial Blood Partial Pressure CO2 35, Arterial Blood Partial Pressure O2 95H, Arterial Blood HCO3 21L, Arterial Blood Total CO2 22.1 , Arterial Blood Oxygen Saturation 98, Arterial Blood Base Excess -3.2L, Sal Test YES-POS, Blood Gas Ventilator Setting YES, Blood Gas Inspired Oxygen 25% 12/06/17 10:23: Blood Gas Puncture Site R RAD, Blood Gas Patient Temperature 100.0, Arterial Blood pH 7.42, Arterial Blood Partial Pressure CO2 33L, Arterial Blood Partial Pressure O2 65L, Arterial Blood HCO3 21L, Arterial Blood Total CO2 21.5, Arterial Blood Oxygen Saturation 91L, Arterial Blood Base Excess -3.1L, Sal Test ART LINE, Blood Gas Ventilator Setting YES, Blood Gas Inspired Oxygen 21% Microbiology 12/02/17 Blood Culture - Preliminary, Resulted No growth 12/03/17 Mycobacterial Culture - Preliminary, Resulted 12/02/17 Urine Culture - Final, Complete Klebsiella pneumoniae See Report Laboratory Tests 12/04/17 17:56 12/05/17 03:00 12/06/17 03:57 A/P: Assessment: Pneumonia with sepsis - management per Medical and Pulmonary Services Hemoptysis, likely due to pneumonia Blood clots in stools, suggestive of GI bleed or swallowed blood from hemoptysis. W/u for this is with the Med Svce Chronic diastolic CHF PAF, first documented on tele strips at [facility] in early 2017. Currently in NSR H/o ischemic cm. LVEF on 02/18/17 was 35%. Echo of 05/26/17: LVEF 50%, grade 3 rehman dysfunction, MAC, mild MR, mod to severe , PASP 40-45 mmHg CAD. S/p prox LAD stenting by Dr Obrien at [facility] on 02/20/17: Promus 2.5x24. Cath on 02/18/17 prior to cor stenting showed dual LAD, one of which was proximally occluded and the other was severely diseased. Rest of the cors had mod dz MPI of 01/12/17: anteroapical infarction w/o significant ischemia; LVEF 39% Dizziness and vertigo, improved after reduction of anti-htn and Invokana treatment in early Apr 2015. MRI head on 05/10/15 (Dr Mariano) did not show lesions other than possibility of chronic microvascular disease Valvular heart disease. Cath of 02/18/17 showed mod MR and a gradient across AoV of 25-30 mmHg. Mod with valve area 1.4 cm sq and mean gradient across aortic valve of 23 mmHg on echo of 01/08/17. Subsequent echo as noted above DM II CKD stage 3, likely diabetic nephropathy. eGFR on 05/25/17 is 44 Hyperlipidemia, but has intolerance to statins (severe joint pains) Hypothyroidism, treated with thyroid replacement therapy. TSH normal (2.19) on Bilateral leg and foot discomfort which has been diagnosed as neuropathy. Normal bilat EDDY in June 2014 Mild bilat carotid arterial disease on carotid u/s of 06/08/17 Abn ECG. ECG of 05/13/17: NSR, old ASMI H/o surgeries: S/p hysterectomy w/o oophorectomy; S/p bilateral knee replacement ; H/o R rotator cuff surgery Plan: * Complex management due to multiple comorbidities * Monitor labs * Continue current card regimen * I discussed her CV issues with 2 daughters who were by her bedside today * I reviewed her case with Dr Nicole this am DEMARIO LOPEZ MD FACP FAC CCDS Dec 06, 2017 10:39
--- NOTE | 2017-12-06 13:01 | Occ Therapy Progress Note ---
Therapy Progress Note Pt. on ventilator at this time. Will continue to monitor and provide skilled treatment as needed when pt. is weaned. 1300 LOLIS MORRIS OT Dec 06, 2017 13:01
--- NOTE | 2017-12-06 15:38 | Physical Therapy Progress Note ---
Therapy Progress Note PT to assess in a.m. due to patient weaned off ventilator on this date. NAVIN SANTILLAN PT Dec 06, 2017 15:37
[2017-12-06] MEDS: DILTIAZEM IV FOR DRIP 125 MG in NS (IVPB) 100 ML IV SCH (15:59)
[2017-12-07] VITALS (25 sets, daily range): BP systolic 126–183; BP diastolic 74–115
[2017-12-07] MEDS: PIPERACILLIN/TAZO 4.5 GM/NS 100 ML IV SCH ×6 (01:59→19:18)
[2017-12-07] MEDS: fentaNYL INJECTION 1,250 MCG in NS (IVPB) 250 ML IV SCH (02:12)
[2017-12-07] MEDS ORDERED: LABETALOL HCL 20 MG/4 ML VIAL IV ONE (02:45)
[2017-12-07 03:48] LABS: BASOPHILS % (AUTO) 0 % (0-10); EOSINOPHILS % (AUTO) 0 % (0-10); HEMATOCRIT 29 % (35-52); HEMOGLOBIN 9.2 G/DL (11.5-16.0); LYMPHOCYTES # (AUTO) 0.7 X 10^3 (1.0-4.0); LYMPHOCYTES % (AUTO) 4 % (12-44); MEAN CORPUSCULAR HEMOGLOBIN 28 PG (25-34); MEAN CORPUSCULAR HGB CONC 32 G/DL (32-36); MEAN CORPUSCULAR VOLUME 89 FL (80-99); MEAN PLATELET VOLUME 9.9 FL (7.4-10.4); MONOCYTES # (AUTO) 0.6 X 10^3 (0.0-1.0); MONOCYTES % (AUTO) 3 % (0-12); NEUTROPHILS # (AUTO) 15.1 X 10^3 (1.8-7.8); NEUTROPHILS % (AUTO) 92 % (42-75); PLATELET COUNT 399 10^3/uL (130-400); RED BLOOD COUNT 3.24 10^6/uL (4.35-5.85); RED CELL DISTRIBUTION WIDTH 14.6 % (10.0-14.5); WHITE BLOOD COUNT 16.4 10^3/uL (4.3-11.0)
[2017-12-07] MEDS: meTOprolol 5 MG/5 ML (LOPRESSOR) VIAL IV SCH ×2 (04:07→08:43)
[2017-12-07 04:12] LABS: CREATININE SERUM 1.36 MG/DL (0.60-1.30); MAGNESIUM 2.4 MG/DL (1.8-2.4); PHOSPHORUS 3.6 MG/DL (2.3-4.7); POTASSIUM 4.1 MMOL/L (3.6-5.0)
[2017-12-07] MEDS: KCL 20 MEQ TAB (K-DUR) PO SCH (04:21)
[2017-12-07] MEDS: MAGNESIUM 1 GM/100 ML IVPB 100 ML IV SCH (04:21)
[2017-12-07] MEDS: POTASSIUM CL 10MEQ/50ML IVPB 50 ML IV SCH (04:21)
[2017-12-07] MEDS: methylPREDNISolone 40 MG/ML (Solu-MEDROL) VIAL IV SCH ×4 (05:52→23:41)
[2017-12-07] MEDS: inSUlin ASPART (NovoLOG) 1 UNIT/0.01 ML (CHARGE PER UNIT) SC SCH ×4 (05:52→23:41)
--- NOTE | 2017-12-07 07:14 | Pulmonary Progress Note ---
Subjective Time Seen by a Provider: 07:20 Subjective/Events-last exam PT appears to be doing well off vent. Sepsis Event Evaluation Height, Weight, BMI Height: 5'3.00" Weight: 198lbs. 1.0oz. 89.328881ry; 29.4 BMI Method:Stated Exam Exam Vital Signs Date Time Temp Pulse Resp B/P (MAP) Pulse Ox O2 Delivery O2 Flow Rate FiO2 12/07/17 06:00 89 25 154/87 (109) 99 Nasal Cannula 2.00 12/07/17 05:00 91 24 164/88 (113) 99 Nasal Cannula 2.00 12/07/17 04:00 91 26 165/96 (119) 100 Nasal Cannula 2.00 12/07/17 03:40 100 Nasal Cannula 2.00 12/07/17 03:35 98.3 12/07/17 03:00 88 24 157/89 (111) 100 Nasal Cannula 2.00 12/07/17 02:05 183/115 (137) 12/07/17 02:00 98 21 170/105 (126) 100 Nasal Cannula 2.00 12/07/17 01:00 98 12/07/17 01:00 98 21 165/95 (118) 100 Nasal Cannula 2.00 12/07/17 00:00 90 22 163/89 (113) 100 Nasal Cannula 2.00 12/06/17 23:40 97.9 Nasal Cannula 2.00 12/06/17 23:40 100 Nasal Cannula 2.00 12/06/17 23:00 105 23 155/83 (107) 100 Nasal Cannula 2.00 12/06/17 22:00 103 31 144/86 (105) 98 Nasal Cannula 2.00 12/06/17 21:00 105 27 148/84 (105) 98 Nasal Cannula 2.00 12/06/17 20:35 153/89 (110) 12/06/17 20:02 97 Nasal Cannula 2.00 12/06/17 20:00 111 33 170/89 (116) 100 Nasal Cannula 2.00 12/06/17 20:00 94 Nasal Cannula 2.00 12/06/17 19:30 99.1 112 28 157/85 (109) 94 Nasal Cannula 2.00 12/06/17 19:00 112 25 Nasal Cannula 2.00 12/06/17 19:00 112 12/06/17 18:00 108 32 162/95 (117) 92 Nasal Cannula 2.00 12/06/17 17:00 107 25 159/81 (107) 96 Nasal Cannula 2.00 12/06/17 16:00 99.1 12/06/17 16:00 114 27 155/87 (109) 96 Nasal Cannula 2.00 12/06/17 16:00 100 Nasal Cannula 2.00 12/06/17 15:03 99 Nasal Cannula 2.00 12/06/17 15:00 114 30 100 Nasal Cannula 1.00 12/06/17 15:00 164/84 (110) 12/06/17 14:00 111 17 158/51 (86) 96 Nasal Cannula 1.00 12/06/17 13:00 112 20 160/56 (90) 92 Nasal Cannula 1.00 12/06/17 13:00 112 12/06/17 12:00 100 Nasal Cannula 2.00 12/06/17 12:00 98.6 12/06/17 12:00 113 22 125/43 (70) 92 Nasal Cannula 1.00 12/06/17 11:00 122 26 94 21 12/06/17 11:00 125 24 129/48 (75) 93 Nasal Cannula 1.00 12/06/17 10:00 109 23 110/80 (90) 97 Mechanical Ventilator 21.00 12/06/17 09:23 105 21 93 21 12/06/17 09:00 118 23 120/52 (74) 98 Mechanical Ventilator 21.00 12/06/17 08:40 113 22 98 25 12/06/17 08:00 99.0 12/06/17 08:00 97 Mechanical Ventilator 21 12/06/17 08:00 112 23 128/44 (72) 98 Mechanical Ventilator 21.00 12/06/17 07:27 98 19 100 25 12/06/17 07:23 97.6 I & O 12/07/17 07:00 Intake Total 3050 ml Output Total 1450 ml Balance 1600 ml Height & Weight Height: 5'3.00" Weight: 198lbs. 1.0oz. 89.339999ck; 29.4 BMI Method:Stated General Appearance: No Apparent Distress, Anxious, Obese HEENT: PERRL/EOMI, Pharynx Normal Neck: Full Range of Motion, Supple Respiratory: No Accessory Muscle Use, No Respiratory Distress, Other (Views rhonchi without wheezing noted throughout) Cardiovascular: Regular Rate, Rhythm, No Gallop, No JVD, No Murmur, Normal Peripheral Pulses Capillary Refill: Less Than 3 Seconds Extremity: Other (2+ edema of the hands 1-2+ of the feet to the mid tibia extremities are warm heel protectors on) Neurologic/Psychiatric: Alert, Oriented x3, No Motor/Sensory Deficits, Normal Mood/Affect, disc inspector II-XII Norm as Tested Skin: Normal Color, Warm/Dry Lymphatic: No Adenopathy Results Lab Laboratory Tests 12/06/17 03:57 12/07/17 03:39 Assessment/Plan Assessment/Plan Acute respiratory failure -PT is now off vent -Swallow eval Pneumonia r/o early sepsis (no leukocytosis currently Tm is 99.7) -Zosyn -Influenza is negative -Michele cultures pending -urine strep and legionella ag pending Atelectasis -Consult PT/OT -Up to chair BID and PRN -Increase activity as tolerated Pulmonary edema -Hep lock IVF Acute renal failure secondary to Lasix yesterday will hold off Moderate to severe aortic stenosis with probable hemolysis -Cardiology is following Hemoptysis with blood clots - Resolved Anemia PAF hx -Will hold eliquis for now secondary to hemoptysis Diastolic CHF hx - currently appears stable -Monitor CAD DM II No hx of tobacco use NICOLA MCCLELLAN DO Dec 07, 2017 07:14
[2017-12-07 07:23] LABS: PARAINFLU 2 PCR Not Detected (Not Detected)
[2017-12-07 07:27] LABS: PARAINFLU 1 PCR Not Detected (Not Detected); RSV PCR Not Detected (Not Detected)
[2017-12-07] MEDS: RT-ALBUTEROL/IPRATROPIUM 3 ML (DUONEB) VIAL INH SCH ×5 (08:00→22:10)
[2017-12-07] MEDS ORDERED: KCL 20 MEQ TAB (K-DUR) PO NR (08:15)
[2017-12-07] MEDS ORDERED: FUROSEMIDE 40 MG/4 ML INJ (LASIX) IVP NR ×2 (08:15→14:00)
--- NOTE | 2017-12-07 08:29 | Progress Note ---
Objective Exam Last Set of Vital Signs Vital Signs Date Time Temp Pulse Resp B/P (MAP) Pulse Ox O2 Delivery O2 Flow Rate FiO2 12/07/17 08:00 96 Nasal Cannula 1.00 12/07/17 06:00 89 25 154/87 (109) 12/07/17 03:35 98.3 12/06/17 11:00 21 Capillary Refill : Less Than 3 Seconds I&O Intake and Output 12/06/17 23:59 Intake Total 2620 ml Output Total 1665 ml Balance 955 ml Intake Oral 1000 ml IV Total 1300 ml Tube Feeding 320 ml Output Urine Total 1665 ml General: Other ( INTUBATED, SEDATED) Neck: Supple Lungs: Other (DECREASED AIR MOVEMENT THROUGHOUT) Heart: Regular Rate, Other (II/ SABRINA) Extremities: Other (EDEMA OF HANDS) Psych/Mental Status: Other (SEDATED ON VENT) Results Lab Laboratory Tests 12/06/17 10:23: Blood Gas Puncture Site R RAD, Blood Gas Patient Temperature 100.0, Arterial Blood pH 7.42, Arterial Blood Partial Pressure CO2 33L, Arterial Blood Partial Pressure O2 65L, Arterial Blood HCO3 21L, Arterial Blood Total CO2 21.5, Arterial Blood Oxygen Saturation 91L, Arterial Blood Base Excess -3.1L, Sal Test ART LINE, Blood Gas Ventilator Setting YES, Blood Gas Inspired Oxygen 21% 12/06/17 11:17: Glucometer 196H 12/06/17 18:08: Glucometer 263H 12/06/17 23:39: Glucometer 198H 12/07/17 03:39: White Blood Count 16.4H, Red Blood Count 3.24L, Hemoglobin 9.2L, Hematocrit 29L , Mean Corpuscular Volume 89, Mean Corpuscular Hemoglobin 28, Mean Corpuscular Hemoglobin Concent 32, Red Cell Distribution Width 14.6H, Platelet Count 399, Mean Platelet Volume 9.9, Neutrophils (%) (Auto) 92H, Lymphocytes (%) (Auto) 4L , Monocytes (%) (Auto) 3, Eosinophils (%) (Auto) 0, Basophils (%) (Auto) 0, Neutrophils # (Auto) 15.1H, Lymphocytes # (Auto) 0.7L, Monocytes # (Auto) 0.6, Eosinophils # (Auto) 0.0, Basophils # (Auto) 0.0, Sodium Level 143, Potassium Level 4.1, Chloride Level 112H, Carbon Dioxide Level 20L, Anion Gap 11, Blood Urea Nitrogen 37H, Creatinine 1.36H, Estimat Glomerular Filtration Rate 38, BUN/ Creatinine Ratio 27, Glucose Level 194H, Calcium Level 8.0L, Phosphorus Level 3.6, Magnesium Level 2.4, B-Type Natriuretic Peptide 4814.5H, Triglycerides Level 161H Microbiology 12/02/17 Blood Culture - Preliminary, Resulted No growth 12/03/17 Mycobacterial Culture - Preliminary, Resulted 12/02/17 Urine Culture - Final, Complete Klebsiella pneumoniae See Report Assessment/Plan Assessment/Plan Assess & Plan/Chief Complaint SEPSIS PNEUMONIA RESPIRATORY DISTRESS HYPERTENSION HEMOPTYSIS DIABETES MELLITUS CORONARY ARTERY DISEASE ATRIAL FIBRILLATION UTI - KLEBSIELLA SEPSIS WITH PNEUMONIA AND RESPIRATORY DISTRESS - ON VENTILATORY SUPPORT -PLAN IS TO EXTUBATE PT TODAY IF WEANING TOLERATED. CHEST XRAY CONTINUES TO SHOW 5 LOBE INFILTRATE. HYPERTENSION - RESUMED HOME MEDICATIONS. DIABETES MELLITUS - WILL INITIATE ICU HYPERGLYCEMIA PROTOCOL UNTIL PT TAKING NORMAL FOOD INTAKE AND THEN WILL CONSIDER RESUMPTION OF NORMAL HOME REGIMEN. CORONARY ARTERY DISEASE - CONSULT TO CARDIOLOGY HAS BEEN PLACED AFIB - CONSULT TO CARDIOLOGY. UTI - KLEBSIELLA - ON ZOSYN - CONTINUE WITH CURRENT REGIMEN FAMILY AWARE OF HOW ILLBg BARNES IS AND ARE STILL WANTING TO PURSUE CONTINUED CARE AT THIS TIME. Clinical Quality Measures Admission Status Admission Dx SEPSIS PNEUMONIA RESPIRATORY DISTRESS HYPERTENSION HEMOPTYSIS DIABETES MELLITUS CORONARY ARTERY DISEASE ATRIAL FIBRILLATION SEPSIS WITH PNEUMONIA AND RESPIRATORY DISTRESS - OXYGEN VIA NASAL CANNULA, SEPSIS PROTOCOL INITIATED, MONITOR SERIAL CHEST XRAYS - PLANNING ON BRONCHOSCOPY TOMORROW MORNING. HYPERTENSION - RESUMED HOME MEDICATIONS HEMOPTYSIS - SUPPORTIVE CARE, BRONCHOSCOPY PLANNED, IF NEGATIVE, THEN LIKELY WILL PROCEED TO EGD DIABETES MELLITUS - WILL INITIATE ICU HYPERGLYCEMIA PROTOCOL UNTIL PT TAKING NORMAL FOOD INTAKE AND THEN WILL CONSIDER RESUMPTION OF NORMAL HOME REGIMEN. CORONARY ARTERY DISEASE - CONSULT TO CARDIOLOGY HAS BEEN PLACED AFIB - CONSULT TO CARDIOLOGY. DVT/VTE Risk/Contraindication: Risk Factor Score Per Nursin RFS Level Per Nursing on Admit: 3=High KURTIS DIEGO MD Dec 07, 2017 08:29
[2017-12-07] MEDS: PANTOPRAZOLE 40 MG (PROTONIX) VIAL IV SCH (08:42)
[2017-12-07] MEDS: ASPIRIN 81 MG CHEW (CHILDREN'S ASA) NG SCH (08:44)
--- NOTE | 2017-12-07 08:47 | Diagnostic Imaging Report ---
INDICATION: Pneumonia. Comparison made with prior examination 12/06/2017. FINDINGS: There is cardiomegaly. There is moderate central pulmonary venous congestion. There are bibasilar infiltrates. There is no pleural effusion or pneumothorax. Mediastinum is unremarkable. IMPRESSION: Cardiomegaly and moderate central pulmonary venous congestion. Persistent bibasilar pulmonary infiltrates which appear slightly improved when compared to prior examination. Dictated by: Dictated on workstation # [id number]
--- NOTE | 2017-12-07 09:32 | Physical Therapy Evaluation ---
PT Evaluation-General Medical Diagnosis Admission Date Dec 02, 2017 at 04:58 Medical Diagnosis: right multi lobe pneumonia Onset Date: Dec 02, 2017 Therapy Diagnosis Therapy Diagnosis: generalized weakness/debility Height/Weight Height (Feet): 5 Height (Inches): 3.00 Weight (Pounds): 198 Weight (Ounces): 1.0 Precautions Precautions/Isolations: Fall Prevention, Standard Precautions Weight Bear Status Right Lower Extremity: Right Weight Bearing/Tolerated Left Lower Extremity: Left Weight Bearing/Tolerated Referral Physician: Stormy Reason for Referral: Evaluation/Treatment Medical History Pertinent Medical History: CAD, DM, Heart Failure, HTN, PVD Current History ED secondary to coughing up blood/pulmonary edema, renal failure Reviewed History: Yes Social History Home: Single Level Current Living Status: Spouse Prior/Core FIM Prior Level of Function Functional Nucla Measure 0=Not Assessed/NA 4=Minimal Assistance 1=Total Assistance 5=Supervision or Setup 2=Maximal Assistance 6=Modified Nucla 3=Moderate Assistance 7=Complete Nucla Bed Mobility: 7 Transfers (B,C,W/C) (FIM): 7 Gait: 7 PT Evaluation-Current Subjective Patient agrees to PT. She reports she is very apprehensive to perform activity due to weakness. Pain Numeric Pain Scale: 0-No Pain Location: No Pain Reported Objective Patient Orientation: Normal For Age Problem Solving: Fair Attachments: Oxygen, Escobedo Catheter, IV ROM/Strength ROM Lower Extremities bilateral LE WFL (noted edema) Strength Lower Extremities 3-/5 grossly bilaterally Integumentary/Posture Integumentary refer to nursing notes Bladder Incontinence: Escobedo Cath Posture WFL Neuromuscular (Tone, Coordination, Reflexes) diminished coordination due to inactivity/weakness Sensory Vision: Functional Hearing: Functional Sensation Right Lower Extremit: Impaired Sensation Left Lower Extremity: Impaired Transfers Functional Nucla Measure 0=Not Assessed/NA 4=Minimal Assistance 1=Total Assistance 5=Supervision or Setup 2=Maximal Assistance 6=Modified [place] 3=Moderate Assistance 7=Complete [place] Transfers (B, C, W/C) (FIM): 1 Scootin Rollin Supine to/from Sit: 1 Sit to/from Stand: 1 bed t/f WC(FIM only if WC use): 1 dependent assist with all (patient able to maintain sitting EOB x 10 min with minimal assist) Balance Sitting Static: Poor Sitting Dynamic: Poor Standing Static: Poor Standing Dynamic: Poor Assessment/Needs 77 y.o. female, will benefit from skilled PT to address functional strength and mobility to improve current LOF and to safely return to home with spouse at maximum LOF. From a PT standpoint, patient would benefit from ARU, when medically stable, to attain all functional goals. Rehab Potential: Fair PT Short Term Goals Short Term Goals Time Frame: Dec 25, 2017 Transfers (B,C,W/C) (FIM): 4 Gait (FIM): 2 Distance (FIM): 8=093-10 ft Gait Distance Comment: 75' Gait Level of Assist: 4 Gait Assistive Device: FWW PT Jewelry Dipper Goals Jewelry Dipper Goals PT Jewelry Dipper Goals Time Frame: Jan 08, 2018 Transfers (B,C,W/C) (FIM): 6 Gait (FIM): 6 Gait distance (FIM): 3=150 ft Distance: 200' Gait Level of Assist: 6 Gait Assistive Device: FWW Stairs (FIM): 5 # of Steps: 8 Stairs Level Of Assist: 5 PT Plan Problem List Problem List: Activity Tolerance, Functional Strength, Safety, Balance, Gait, Transfer, Bed Mobility Treatment/Plan Treatment Plan: Continue Plan of Care Treatment Plan: Bed Mobility, Education, Functional Activity Monique, Functional Strength, Gait, Safety, Therapeutic Exercise, Transfers Treatment Duration: Jan 08, 2018 Frequency: 6 times per week (then increase to BID as patient tolerates) Estimated Hrs Per Day: .5 hour per day Patient and/or Family Agrees t: Yes Discharge Recommendations Therapy D/C Recommendations: Acute Rehab Time/GCodes Time In: 810 Time Out: 839 Total Billed Treatment Time: 29 Total Billed Treatment 1 visit [facility] 29 min G Codes Necessary: NAVIN Dial PT Dec 07, 2017 09:32
--- NOTE | 2017-12-07 10:24 | Progress Note-Cardiology ---
Cardiology SOAP Progress Note Subjective: Sitting up in a chair at the bedside. No c/o CP or palpitations. C/O dyspnea. C/O gen weakness and fatigue. C/O gen edema Objective: I&O/Vital Signs 12/07/17 12/07/17 12/07/17 12/07/17 04:00 05:00 06:00 07:00 Temp 97.9 Pulse 91 91 89 Resp 24 25 B/P (MAP) 165/96 (119) 164/88 (113) 154/87 (109) Pulse Ox 100 99 99 O2 Delivery Nasal Cannula Nasal Cannula Nasal Cannula O2 Flow Rate 2.00 2.00 2.00 12/07/17 12/07/17 12/07/17 12/07/17 07:00 07:00 08:00 08:00 Pulse 94 91 Resp 23 B/P (MAP) 158/85 (109) Pulse Ox 100 96 96 O2 Delivery Nasal Cannula Nasal Cannula Nasal Cannula O2 Flow Rate 2.00 1.00 1.00 12/07/17 12/07/17 12/07/17 12/07/17 08:00 09:00 10:00 11:00 Pulse 92 82 92 Resp 25 B/P (MAP) 158/96 (116) 151/105 (120) 151/95 (113) Pulse Ox 100 100 99 93 O2 Delivery Nasal Cannula Nasal Cannula Nasal Cannula Nasal Cannula O2 Flow Rate 2.00 2.00 2.00 1.00 12/07/17 12/07/17 12/07/17 12/07/17 11:00 12:00 12:00 12:00 Temp 98.0 Pulse 92 96 Resp 27 B/P (MAP) 162/96 (118) 166/103 (124) Pulse Ox 97 100 96 O2 Delivery Nasal Cannula Nasal Cannula Nasal Cannula O2 Flow Rate 2.00 2.00 1.00 12/07/17 12/07/17 12/07/17 12/07/17 13:00 14:00 14:44 15:00 Pulse 90 92 96 Resp 24 29 B/P (MAP) 149/81 (103) 145/88 (107) 155/86 (109) Pulse Ox 100 100 96 94 O2 Delivery Nasal Cannula Nasal Cannula Nasal Cannula Nasal Cannula O2 Flow Rate 2.00 2.00 1.00 1.00 12/07/17 00:00 Intake Total 2300 ml Output Total 615 ml Balance 1685 ml Weight (Pounds): 198 Weight (Ounces): 1.0 Weight (Calculated Kilograms): 89.593388 Constitutional: AAO x 3, well-developed, well-nourished Respiratory: No accessory muscle use, No respiratory distress; chest expansion is symmetric, chest is bilaterally symmetric, other (diminished throughout all guevara) Cardiovascular: regular rate-rhythm; No JVD; S1 and S2, systolic murmur (3/6 MSM) Gastrointestional: No tender; soft, round; No guarding, No rebound; audible bowel sounds Extremities: other (anasarca); No clubbing, No cyanosis Neurologic/Psychiatric: grossly intact Skin: normal color, warm/dry; No rash, No ulcerations Results/Procedures: Labs Laboratory Tests 12/06/17 18:08: Glucometer 263H 12/06/17 23:39: Glucometer 198H 12/07/17 03:39: White Blood Count 16.4H, Red Blood Count 3.24L, Hemoglobin 9.2L, Hematocrit 29L , Mean Corpuscular Volume 89, Mean Corpuscular Hemoglobin 28, Mean Corpuscular Hemoglobin Concent 32, Red Cell Distribution Width 14.6H, Platelet Count 399, Mean Platelet Volume 9.9, Neutrophils (%) (Auto) 92H, Lymphocytes (%) (Auto) 4L , Monocytes (%) (Auto) 3, Eosinophils (%) (Auto) 0, Basophils (%) (Auto) 0, Neutrophils # (Auto) 15.1H, Lymphocytes # (Auto) 0.7L, Monocytes # (Auto) 0.6, Eosinophils # (Auto) 0.0, Basophils # (Auto) 0.0, Sodium Level 143, Potassium Level 4.1, Chloride Level 112H, Carbon Dioxide Level 20L, Anion Gap 11, Blood Urea Nitrogen 37H, Creatinine 1.36H, Estimat Glomerular Filtration Rate 38, BUN/ Creatinine Ratio 27, Glucose Level 194H, Calcium Level 8.0L, Phosphorus Level 3.6, Magnesium Level 2.4, B-Type Natriuretic Peptide 4814.5H, Triglycerides Level 161H 12/07/17 13:33: Glucometer 276H Microbiology 12/02/17 Blood Culture - Preliminary, Resulted No growth 12/03/17 Mycobacterial Culture - Preliminary, Resulted 12/02/17 Urine Culture - Final, Complete Klebsiella pneumoniae See Report Procedures NAME: CAMERON [facility]ITAKER [facility] REC#: [id number] PT STATUS: ADM IN : 1940 PHYSICIAN: NICOLA MCCLELLAN DO ADMIT DATE: 12/02/17/ICU Signed Date of Exam: 12/07/17 CHEST 1 VIEW, AP/PA ONLY INDICATION: Pneumonia. Comparison made with prior examination 12/06/2017. FINDINGS: There is cardiomegaly. There is moderate central pulmonary venous congestion. There are bibasilar infiltrates. There is no pleural effusion or pneumothorax. Mediastinum is unremarkable. IMPRESSION: Cardiomegaly and moderate central pulmonary venous congestion. Persistent bibasilar pulmonary infiltrates which appear slightly improved when compared to prior examination. Dictated by: Dictated on workstation # [id number] Dict: 12/07/17 0816 Trans: 12/07/17 0850 Interpreted by: VIJAY FLANAGAN MD Electronically signed by: VIJAY FLANAGAN MD 12/07/17 0850 A/P: Assessment: Pneumonia with sepsis - management per Medical and Pulmonary Services Hemoptysis, likely due to pneumonia Blood clots in stools, suggestive of GI bleed or swallowed blood from hemoptysis. W/u for this is with the Med Svce Chronic diastolic CHF PAF, first documented on tele strips at [facility] in early 2016. Currently in NSR H/o ischemic cm. LVEF on 02/18/17 was 35%. Echo of 12/03/17: LVEF 60-65%, LVH, grade 1 rehman dysfunction, mild to mod MR, mod to severe with valve area approx 1.1 sq cm and gradient approx 25 mmHg, PASP 25 mmHg CAD. S/p prox LAD stenting by Dr Obrien at [facility] on 02/20/17: Promus 2.5x24. Cath on 02/18/17 prior to cor stenting showed dual LAD, one of which was proximally occluded and the other was severely diseased. Rest of the cors had mod dz MPI of 01/12/17: anteroapical infarction w/o significant ischemia; LVEF 39% Dizziness and vertigo, improved after reduction of anti-htn and Invokana treatment in early Apr 2015. MRI head on 05/10/15 (Dr Mariano) did not show lesions other than possibility of chronic microvascular disease Valvular heart disease. Cath of 02/18/17 showed mod MR and a gradient across AoV of 25-30 mmHg. Mod with valve area 1.4 cm sq and mean gradient across aortic valve of 23 mmHg on echo of 01/08/17. Subsequent echo as noted above DM II CKD stage 3, likely diabetic nephropathy. eGFR on 05/25/17 is 44 Hyperlipidemia, but has intolerance to statins (severe joint pains) Hypothyroidism, treated with thyroid replacement therapy. TSH normal (2.19) on Bilateral leg and foot discomfort which has been diagnosed as neuropathy. Normal bilat DEDY in June 2014 Mild bilat carotid arterial disease on carotid u/s of 06/08/17 Abn ECG. ECG of 05/13/17: NSR, old ASMI H/o surgeries: S/p hysterectomy w/o oophorectomy; S/p bilateral knee replacement ; H/o R rotator cuff surgery Plan: * Complex management due to multiple comorbidities * Off the vent * BP not well controlled * We will stop IV Lopressor and start long-acting BB Toprol XL 100 mg daily and adjust as indicated - this will help with HR and BP * Hold on Entresto and Dig for now * IV Lasix * Replace potassium * Monitor labs * Continue current card regimen Physician Assessment Physician Assessment Reports gen weakness and malaise, no focal weakness, no cp or palp or syncope Lungs: dec bs at bases Cor: reg Ext: mod swelling of all extremities A&R * As documented in our note above that I updated (italics) and as noted below * Diuretics as needed * BB to oral * Monitor labs * I spoke with her and answer CV-related questions VINEET DASILVA SHEET PILE HAMMER OPERATOR Dec 07, 2017 10:24 DEMARIO LOPEZ MD FACP [facility] Dec 07, 2017 15:46
[2017-12-07] MEDS ORDERED: meTOproloL SUCCINATE 50 MG (TOPROL XL) TAB PO NR ×2 (10:45→11:00)
[2017-12-07] MEDS ORDERED: DIGOXIN 0.125 MG (LANOXIN) TAB PO NR (10:45)
[2017-12-07] MEDS: DEXMEDETOMIDINE INJECTION 1,000 MCG in NS (IVPB) 240 ML IV SCH (13:40)
[2017-12-07] MEDS: DILTIAZEM IV FOR DRIP 125 MG in NS (IVPB) 100 ML IV SCH (14:00)
--- NOTE | 2017-12-07 14:41 | Occupational Therapy Eval ---
OT Evaluation-General/PLF Medical Diagnosis Admission Date Dec 02, 2017 at 04:58 Medical Diagnosis: right multi lobe pneumonia Onset Date: Dec 02, 2017 Therapy Diagnosis Therapy Diagnosis: Weakness Height/Weight Height (Feet): 5 Height (Inches): 3.00 Weight (Pounds): 198 Weight (Ounces): 1.0 Precautions Precautions/Isolations: Fall Prevention, Standard Precautions Safety Interventions: None Weight Bear Status Weight Bearing Restriction: Weight Bearing/Tolerated Referral Physician: Stormy Referral Reason: Activity Tolerance, Self Care, Evaluation/Treatment, Strengthening/ROM Medical History Pertinent Medical History: CAD, DM, Heart Failure, HTN, PVD Additional Medical History Bilateral TKR, Bilateral CTS, coronary stent, aortic stenosis, Chronic UTI, neuropathy Current History Pt. is poor historian. Does state that her found her on the floor, but is unable to report the exact details of this event. Reviewed History: Yes Social History Home: Single Level Current Living Status: Spouse Spouse has cancer and is undergoing treatment. Pt. is unable to fully state what equipment she has at home. ADL-Prior Level of Function ADL PLOF Comments Pt. reports that she was independent prior to this hospitalization. Drive Self: Yes (per pt.) OT Current Status Subjective Pt. does not report pain, but states that she is tired and "in a bad state." Appearance OT explains purpose of treatment to her. Pt. declines any out of bed activity stating that she has already been up. Pt. has had multiple visitors in room this a.m., as well as clinicians. Mental Status/Objective Patient Orientation: Unable to Assess Attachments: Escobedo Catheter, IV, Oxygen Current Glasses/Contacts: Yes Hand Dominance: Right Upper Extremity ROM Pt. demonstrates very little UE movement. Pt. is able to make slight fist on both hands, and is able to flex bilateral elbows approximately 1/2 way. No active shoulder movement noted. ADL-Treatment Functional [place] Measure 0=Not Assessed/NA 4=Minimal Assistance 1=Total Assistance 5=Supervision or Setup 2=Maximal Assistance 6=Modified [place] 3=Moderate Assistance 7=Complete IndependenceIRFPAI Quality Coding Scale 6 Independent with activity with or without an assistive device 5 Patient requires set up or clean up by helper. Patient completes activity by themselves 4 Supervision or touching assist (CGA). [place] provide cues , steadying assist 3 The helper provides less than half the effort to complete the activity 2 The helper provides more than half the effort to complete the activity 1 Dependent. The helper does all the effort to complete an activity 7 Patient refused to complete or attempt activity 9 The patient did not perform the activity before the current illness or injury 88 Not attempted due to Medical conditions or safety concerns Pt. does not initiate UE movement. Noted swelling in bilateral UE. Completed UE MMT as well as gentle PROM to hands and elbows. Encouraged pt. to wash face with washcloth. Pt. will not hold washcloth but agrees for OT to do this. OT washes face, brushes pt's hair, and cleans glasses for her. Pt. unable to hold water glass and so OT does this for her while pt. takes several small drinks. Pt. attempts to tell this OT story of how she came into hospital, but seems unclear on the details. Pt. very lethargic and closes eyes throughout treatment. OT explains OT goals and encourages pt. Pt. verbalizes understanding. Education OT Patient Education: Correct positioning, Exercise program, Modified ADL techniques, Progress toward Goal/Update tx plan, Purpose of tx/functional activities, Reviewed precautions, Rehab process, Transfer techniques Teaching Recipient: Patient Teaching Methods: Demonstration, Discussion Response to Teaching: Verbalize Understanding OT Short Term Goals Short Term Goals Time Frame: Dec 21, 2017 Eating(FIM): 4 Grooming(FIM): 4 Bathing(FIM): 3 Upper Body Dressing(FIM): 3 Lower Body Dressing(FIM): 3 Toileting(FIM): 4 Transfers (B,C,W/C) (FIM): 4 Toilet/Commode Transfer(FIM): 4 Shower Transfer(FIM): 3 Additional Short Term Goals: 1-Demonstrate ADL Tasks, 2-Verbalize Understanding , 3-ImproveStrength/Monique 1=Demonstrate adherence to instructed precautions during ADL tasks. 2=Patient will verbalize/demonstrate understanding of assistive devices/ modifications for ADL. 3=Patient will improve strength/tolerance for activity to enable patient to perform ADL's. OT Residential Goals Office Worker Goals Time Frame: Jan 04, 2018 Eating (FIM): 5 Grooming(FIM): 5 Bathing(FIM): 4 Upper Body Dressing(FIM): 5 Lower Body Dressing(FIM): 4 Toileting(FIM): 4 Transfers (B,C,W/C) (FIM): 5 Toilet/Commode Transfer(FIM): 5 Shower Transfer(FIM): 4 Additional Goals: 1-Demonstrate ADL Tasks, 2-Verbalize Understanding, 3- ImproveStrength/Monique 1=Demonstrate adherence to instructed precautions during ADL tasks. 2=Patient will verbalize/demonstrate understanding of assistive devices/ modifications for ADL. 3=Patient will improve strength/tolerance for activity to enable patient to perform ADL's. OT Education/Plan Problem List/Assessment Assessment: Decreased Activ Tolerance, Decreased UE Strength, Dependent Transfers, Edema, Impaired Bed Mobility, Impaired Cognition, Impaired Coordination, Impaired Funct Balance, Impaired I ADL's, Impaired Self-Care Skills, Restricted Funct UE ROM Discharge Recommendations Plan/Recommendations: Continue POC Therapy D/C Recommendations: 24 hr Supervision Comment Equipment needs and discharge location to be discussed. Treatment Plan/Plan of Care Treatment,Training & Education: Yes Patient would benefit from OT for education, treatment and training to promote independence in ADL's, mobility, safety and/or upper extremity function for ADL' s. Plan of Care: ADL Retraining, Functional Mobility, UE Funct Exercise/Act Treatment Duration: Jan 04, 2018 Frequency: 5 times per week Estimated Hrs Per Day: .25 hour per day Agreement: Yes Rehab Potential: Fair Time/GCodes Start Time: 11:55 Stop Time: 12:20 Total Time Billed (hr/min): 25 Billed Treatment Time 1, EVH x 10minutes, ADL x 15minutes LOLIS MORRIS OT Dec 07, 2017 14:41
--- NOTE | 2017-12-07 15:56 | ST Dysphagia Evaluation ---
Speech Evaluation-General Medical Diagnosis right multi lobe pneumonia Onset Date: Dec 02, 2017 Therapy Diagnosis Therapy Diagnosis: ? Dysphagia Precautions Precautions/Isolations: Fall Prevention, Standard Precautions Referral Referring Physician: Dr. Nicole Reason for Referral: Evaluation/Treatment Medical History Pertinent Medical History: CAD, DM, Heart Failure, HTN, PVD Reviewed History: Yes Social History Current Living Status: Spouse Speech PLF/Current-Dysphagia Subjective Pt up in chair being fed by Nursing. Cognitive Status Patient Orientation: Person Oral Motor Skills Current Food Consistancy: Regular, Thin Liquids Ability to Follow Directions: Fair Oral Expression Ability: No Impairment Voice Voice Phonatory-Based Quality: Normal Voice Pitch: Normal Voice Loudness: Normal Face Facial Symmetry: Symmetrical Dysphagia Evaluation Consistencies Presented: Regular, Thin Liquid appeared WFL appeared WFL none of these observed. Dietary Recommendations: Regular Liquid Recommendations: Thin pt appeared to tolerate diet texture well with Nursing feeding her. 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 n Pt was instructed to not talk while she is chewing/swallowing food and liquids. Frequency: Modified Program (IRF) (0) Estimated Hrs Per Day: Other (0) Rehab Potential: Fair Time Speech Therapy Time In: 09:05 Speech Therapy Time Out: 09:20 Total Billed Time: 15 Billed Treatment Time 1, LISETTE Silvia BLUEELIGIO ST Dec 07, 2017 15:56
[2017-12-08] VITALS (11 sets, daily range): BP systolic 147–171; BP diastolic 72–100
[2017-12-08] MEDS: PIPERACILLIN/TAZO 4.5 GM/NS 100 ML IV SCH ×6 (02:13→17:55)
[2017-12-08] MEDS: RT-ALBUTEROL/IPRATROPIUM 3 ML (DUONEB) VIAL INH SCH ×6 (03:16→21:37)
[2017-12-08 04:25] LABS: BASOPHILS % (AUTO) 0 % (0-10); EOSINOPHILS % (AUTO) 0 % (0-10); HEMATOCRIT 31 % (35-52); LYMPHOCYTES # (AUTO) 1.1 X 10^3 (1.0-4.0); LYMPHOCYTES % (AUTO) 6 % (12-44); MEAN CORPUSCULAR HEMOGLOBIN 29 PG (25-34); MEAN CORPUSCULAR HGB CONC 33 G/DL (32-36); MEAN CORPUSCULAR VOLUME 88 FL (80-99); MEAN PLATELET VOLUME 10.3 FL (7.4-10.4); MONOCYTES # (AUTO) 0.7 X 10^3 (0.0-1.0); MONOCYTES % (AUTO) 4 % (0-12); NEUTROPHILS # (AUTO) 16.1 X 10^3 (1.8-7.8); NEUTROPHILS % (AUTO) 90 % (42-75); PLATELET COUNT 479 10^3/uL (130-400); RED BLOOD COUNT 3.49 10^6/uL (4.35-5.85); RED CELL DISTRIBUTION WIDTH 14.2 % (10.0-14.5); WHITE BLOOD COUNT 17.9 10^3/uL (4.3-11.0)
[2017-12-08 04:45] LABS: BUN/CREATININE RATIO 28; CALCIUM 7.9 MG/DL (8.5-10.1); CARBON DIOXIDE 22 MMOL/L (21-32); CHLORIDE 108 MMOL/L (98-107); CREATININE SERUM 1.41 MG/DL (0.60-1.30); GFR ESTIMATED 36; GLUCOSE 210 MG/DL (70-105); MAGNESIUM 2.2 MG/DL (1.8-2.4); PHOSPHORUS 4.2 MG/DL (2.3-4.7); POTASSIUM 4.4 MMOL/L (3.6-5.0); SODIUM 142 MMOL/L (135-145)
[2017-12-08] MEDS: MAGNESIUM 1 GM/100 ML IVPB 100 ML IV SCH (04:46)
[2017-12-08] MEDS: POTASSIUM CL 10MEQ/50ML IVPB 50 ML IV SCH (04:46)
[2017-12-08] MEDS: KCL 20 MEQ TAB (K-DUR) PO SCH (04:46)
[2017-12-08 04:54] LABS: DIGOXIN < 0.30 NG/ML (0.80-2.00)
--- NOTE | 2017-12-08 05:17 | Pulmonary Progress Note ---
Subjective Time Seen by a Provider: 06:49 Subjective/Events-last exam Pt is doing well off ventilator. She complains of being weak. Sepsis Event Evaluation Height, Weight, BMI Height: 5'3.00" Weight: 198lbs. 1.0oz. 89.637679nx; 29.4 BMI Method:Stated Exam Exam Vital Signs Date Time Temp Pulse Resp B/P (MAP) Pulse Ox O2 Delivery O2 Flow Rate FiO2 12/08/17 04:00 81 17 148/84 (105) 100 Nasal Cannula 2.00 12/08/17 03:55 100 Nasal Cannula 2.00 12/08/17 03:16 100 Nasal Cannula 2.00 12/08/17 03:00 98.6 12/08/17 03:00 85 20 156/92 (113) 100 Nasal Cannula 2.00 12/08/17 02:00 80 16 153/93 (113) 100 Nasal Cannula 2.00 12/08/17 01:00 81 12/08/17 01:00 81 20 151/88 (109) 100 Nasal Cannula 2.00 12/08/17 00:00 98.3 87 25 153/87 (109) 100 Nasal Cannula 2.00 12/07/17 23:35 100 Nasal Cannula 2.00 12/07/17 23:00 86 22 148/84 (105) 100 Nasal Cannula 2.00 12/07/17 22:10 100 Nasal Cannula 2.00 12/07/17 22:00 88 21 134/81 (98) 100 Nasal Cannula 2.00 12/07/17 21:00 84 20 138/74 (95) 100 Nasal Cannula 2.00 12/07/17 20:00 94 22 146/86 (106) 100 Nasal Cannula 2.00 12/07/17 19:28 100 Nasal Cannula 2.00 12/07/17 19:25 100 Nasal Cannula 2.00 12/07/17 19:20 98.4 89 16 126/78 (94) 100 Nasal Cannula 2.00 12/07/17 19:00 90 12/07/17 19:00 90 20 100 Nasal Cannula 2.00 12/07/17 18:00 80 29 146/88 (107) 100 Nasal Cannula 1.00 12/07/17 17:00 80 19 147/95 (112) 100 Nasal Cannula 1.00 12/07/17 16:00 90 22 141/83 (102) 100 Nasal Cannula 1.00 12/07/17 16:00 96 Nasal Cannula 1.00 12/07/17 15:00 96 29 155/86 (109) 94 Nasal Cannula 1.00 12/07/17 14:44 96 Nasal Cannula 1.00 12/07/17 14:00 92 26 145/88 (107) 100 Nasal Cannula 2.00 12/07/17 13:00 90 24 149/81 (103) 100 Nasal Cannula 2.00 12/07/17 13:00 98 12/07/17 12:00 98.0 12/07/17 12:00 96 Nasal Cannula 1.00 12/07/17 12:00 96 27 166/103 (124) 100 Nasal Cannula 2.00 12/07/17 11:00 92 29 162/96 (118) 97 Nasal Cannula 2.00 12/07/17 11:00 93 Nasal Cannula 1.00 12/07/17 10:00 92 25 151/95 (113) 99 Nasal Cannula 2.00 12/07/17 09:00 82 21 151/105 (120) 100 Nasal Cannula 2.00 12/07/17 08:00 92 27 158/96 (116) 100 Nasal Cannula 2.00 12/07/17 08:00 96 Nasal Cannula 1.00 12/07/17 08:00 96 Nasal Cannula 1.00 12/07/17 07:00 91 12/07/17 07:00 94 23 158/85 (109) 100 Nasal Cannula 2.00 12/07/17 07:00 97.9 12/07/17 06:00 89 25 154/87 (109) 99 Nasal Cannula 2.00 I & O 12/08/17 07:00 Intake Total 3750 ml Output Total 6300 ml Balance -2550 ml Height & Weight Height: 5'3.00" Weight: 198lbs. 1.0oz. 89.894021kq; 29.4 BMI Method:Stated General Appearance: No Apparent Distress, Anxious, Obese HEENT: PERRL/EOMI, Pharynx Normal Neck: Full Range of Motion, Supple Respiratory: No Accessory Muscle Use, No Respiratory Distress, Other (Views rhonchi without wheezing noted throughout) Cardiovascular: Regular Rate, Rhythm, No Gallop, No JVD, No Murmur, Normal Peripheral Pulses Capillary Refill: Less Than 3 Seconds Gastrointestinal: normal bowel sounds, non tender, soft Extremity: Other (2+ edema of the hands 1-2+ of the feet to the mid tibia extremities are warm heel protectors on) Neurologic/Psychiatric: Alert, Oriented x3, No Motor/Sensory Deficits, Normal Mood/Affect, electro plater II-XII Norm as Tested Skin: Normal Color, Warm/Dry Lymphatic: No Adenopathy Results Lab Laboratory Tests 12/07/17 03:39 12/08/17 03:55 Assessment/Plan Assessment/Plan Acute respiratory failure -Doing well off vent Pneumonia r/o early sepsis (no leukocytosis currently Tm is 99.7) -Zosyn Atelectasis -Consult PT/OT -Up to chair BID and PRN -Increase activity as tolerated Pulmonary edema -Hep lock IVF Acute renal failure secondary to Lasix yesterday will hold off Moderate to severe aortic stenosis with probable hemolysis -Cardiology is following Hemoptysis with blood clots - Resolved Anemia PAF hx - Diastolic CHF hx - currently appears stable -Monitor CAD DM II No hx of tobacco use Will transfer to 4th floor. NICOLA MCCLELLAN DO Dec 08, 2017 05:16
[2017-12-08] MEDS: inSUlin ASPART (NovoLOG) 1 UNIT/0.01 ML (CHARGE PER UNIT) SC SCH ×4 (06:09→21:16)
[2017-12-08] MEDS: PANTOPRAZOLE 40 MG (PROTONIX) TAB PO SCH (06:09)
--- NOTE | 2017-12-08 06:50 | Diagnostic Imaging Report ---
INDICATION: Pneumonia. Upright portable AP view of the chest is obtained with comparison made study of 12/07/2017. FINDINGS: There is mild cardiomegaly. Pulmonary vascularity is at the upper limits of normal. There is no evidence of pneumothorax or consolidation. Perihilar densities may reflect edema or pneumonitis. There is also blunting of both costophrenic sulci. Monitoring leads overlie the chest. There is advanced degenerative change in the right shoulder. IMPRESSION: Central edema and/or pneumonitis with bilateral pleural fluid. Additional radiographic followup would be useful to document stability or resolution. Dictated by: Dictated on workstation # [id number]
--- NOTE | 2017-12-08 08:26 | Progress Note ---
Objective Exam Last Set of Vital Signs Vital Signs Date Time Temp Pulse Resp B/P (MAP) Pulse Ox O2 Delivery O2 Flow Rate FiO2 12/08/17 07:12 100 Nasal Cannula 2.00 12/08/17 07:00 85 12/08/17 06:00 19 154/90 (111) 12/08/17 03:00 98.6 12/06/17 11:00 21 Capillary Refill : Less Than 3 Seconds I&O Intake and Output 12/08/17 00:00 Intake Total 4300 ml Output Total 6285 ml Balance -1985 ml Intake Oral 3700 ml IV Total 600 ml Output Urine Total 6285 ml General: Other ( INTUBATED, SEDATED) Neck: Supple Lungs: Other (DECREASED AIR MOVEMENT THROUGHOUT) Heart: Regular Rate, Other (II/ SABRINA) Extremities: Other (EDEMA OF HANDS) Psych/Mental Status: Other (SEDATED ON VENT) Results Lab Laboratory Tests 12/07/17 13:33: Glucometer 276H 12/07/17 17:25: Glucometer 169H 12/07/17 19:21: Glucometer 195H 12/07/17 23:35: Glucometer 199H 12/08/17 03:55: White Blood Count 17.9H, Red Blood Count 3.49L, Hemoglobin 10.0L, Hematocrit 31L , Mean Corpuscular Volume 88, Mean Corpuscular Hemoglobin 29, Mean Corpuscular Hemoglobin Concent 33, Red Cell Distribution Width 14.2, Platelet Count 479H, Mean Platelet Volume 10.3, Neutrophils (%) (Auto) 90H, Lymphocytes (%) (Auto) 6L , Monocytes (%) (Auto) 4, Eosinophils (%) (Auto) 0, Basophils (%) (Auto) 0, Neutrophils # (Auto) 16.1H, Lymphocytes # (Auto) 1.1, Monocytes # (Auto) 0.7, Eosinophils # (Auto) 0.0, Basophils # (Auto) 0.0, Sodium Level 142, Potassium Level 4.4, Chloride Level 108H, Carbon Dioxide Level 22, Anion Gap 12, Blood Urea Nitrogen 40H, Creatinine 1.41H, Estimat Glomerular Filtration Rate 36, BUN/ Creatinine Ratio 28, Glucose Level 210H, Calcium Level 7.9L, Phosphorus Level 4.2, Magnesium Level 2.2, Digoxin Level < 0.30L Microbiology 12/02/17 Blood Culture - Final, Complete Propionibacterium species See Comments 12/03/17 Mycobacterial Culture - Preliminary, Resulted 12/02/17 Urine Culture - Final, Complete Klebsiella pneumoniae See Report Assessment/Plan Assessment/Plan Assess & Plan/Chief Complaint SEPSIS PNEUMONIA RESPIRATORY DISTRESS HYPERTENSION HEMOPTYSIS DIABETES MELLITUS CORONARY ARTERY DISEASE ATRIAL FIBRILLATION UTI - KLEBSIELLA SEPSIS WITH PNEUMONIA AND RESPIRATORY DISTRESS - ON VENTILATORY SUPPORT -PLAN IS TO EXTUBATE PT TODAY IF WEANING TOLERATED. CHEST XRAY CONTINUES TO SHOW 5 LOBE INFILTRATE. HYPERTENSION - RESUMED HOME MEDICATIONS. DIABETES MELLITUS - WILL INITIATE ICU HYPERGLYCEMIA PROTOCOL UNTIL PT TAKING NORMAL FOOD INTAKE AND THEN WILL CONSIDER RESUMPTION OF NORMAL HOME REGIMEN. CORONARY ARTERY DISEASE - CONSULT TO CARDIOLOGY HAS BEEN PLACED AFIB - CONSULT TO CARDIOLOGY. UTI - KLEBSIELLA - ON ZOSYN - CONTINUE WITH CURRENT REGIMEN FAMILY AWARE OF HOW ILLBg BARNES IS AND ARE STILL WANTING TO PURSUE CONTINUED CARE AT THIS TIME. Clinical Quality Measures Admission Status Admission Dx SEPSIS PNEUMONIA RESPIRATORY DISTRESS HYPERTENSION HEMOPTYSIS DIABETES MELLITUS CORONARY ARTERY DISEASE ATRIAL FIBRILLATION SEPSIS WITH PNEUMONIA AND RESPIRATORY DISTRESS - OXYGEN VIA NASAL CANNULA, SEPSIS PROTOCOL INITIATED, MONITOR SERIAL CHEST XRAYS - PLANNING ON BRONCHOSCOPY TOMORROW MORNING. HYPERTENSION - RESUMED HOME MEDICATIONS HEMOPTYSIS - SUPPORTIVE CARE, BRONCHOSCOPY PLANNED, IF NEGATIVE, THEN LIKELY WILL PROCEED TO EGD DIABETES MELLITUS - WILL INITIATE ICU HYPERGLYCEMIA PROTOCOL UNTIL PT TAKING NORMAL FOOD INTAKE AND THEN WILL CONSIDER RESUMPTION OF NORMAL HOME REGIMEN. CORONARY ARTERY DISEASE - CONSULT TO CARDIOLOGY HAS BEEN PLACED AFIB - CONSULT TO CARDIOLOGY. DVT/VTE Risk/Contraindication: Risk Factor Score Per Nursin RFS Level Per Nursing on Admit: 3=High KURTIS DIEGO MD Dec 08, 2017 08:26
[2017-12-08] MEDS ORDERED: meTOproloL SUCCINATE 50 MG (TOPROL XL) TAB PO SCH (09:00)
[2017-12-08] MEDS ORDERED: DIGOXIN 0.125 MG (LANOXIN) TAB PO SCH (09:00)
[2017-12-08] MEDS: ASPIRIN 81 MG CHEW (CHILDREN'S ASA) PO SCH (09:19)
[2017-12-08] MEDS: meTOprolol SUCCINATE 100 MG (TOPROL XL) TAB PO SCH (09:19)
--- NOTE | 2017-12-08 11:11 | Physical Therapy Daily Note ---
PT Daily Note-Current Subjective Pt. emotional, states she is worried as her is in chemo right now and she is worried about their future, reflecting on their past, their marriage and years of happiness. Agrees to Rx Pain Numeric Pain Scale: 0-No Pain Mental Status Patient Orientation: Normal For Age Attachments: Oxygen Transfers Functional [place] Measure 0=Not Assessed/NA 4=Minimal Assistance 1=Total Assistance 5=Supervision or Setup 2=Maximal Assistance 6=Modified [place] 3=Moderate Assistance 7=Complete IndependenceIRFPAI Quality Coding Scale 6 Independent with activity with or without an assistive device 5 Patient requires set up or clean up by helper. Patient completes activity by themselves 4 Supervision or touching assist (CGA). [place] provide cues , steadying assist 3 The helper provides less than half the effort to complete the activity 2 The helper provides more than half the effort to complete the activity 1 Dependent. The helper does all the effort to complete an activity 7 Patient refused to complete or attempt activity 9 The patient did not perform the activity before the current illness or injury 88 Not attempted due to Medical conditions or safety concerns bed mob, rolling, sup to sit and sit to stand all required mod to mod max. Pt. initially required min assist for sitting balance as she leaned right but with tactile cues and assist was able to right herself and maintain for 5-6 min indep , sit to stand required bed level raised for easier sit to stand, had difficulty taking small steps to get to recliner, required mod to max assist. several sit to stands after reaching chair to align correctly and have second assist adjust pillows and pad under her. Weight Bearing Right Lower Extremity: Right Weight Bearing/Tolerated Left Lower Extremity: Left Weight Bearing/Tolerated Gait Training dance fashion 3-4 steps to side requiring max to mod assist Exercises Supine Ex: Ankle pumps, Quad Set, Rolling, Glut sets, Heel Slides, Straight leg raise (ssist), Hip abd/add Supine Reps: 12 Seated Therapy Exercises: Ankle pumps, Sit to stand, Long arc quads, Hip flexion, Hip abd/add Seated Reps: 8 Assessment Current Status: Fair Progress tearful, emotional unable to concentrate on task, dependent for all mobility PT Short Term Goals Short Term Goals Time Frame: Dec 25, 2017 Transfers (B,C,W/C) (FIM): 4 Gait (FIM): 2 Distance (FIM): 0=291-09 ft Gait Distance Comment: 75' Gait Level of Assist: 4 Gait Assistive Device: FWW PT Nursing Home Goals Nursing Home Goals 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 Time Frame: Jan 08, 2018 Transfers (B,C,W/C) (FIM): 6 Gait (FIM): 6 Gait distance (FIM): 3=150 ft Distance: 200' Gait Level of Assist: 6 Gait Assistive Device: FWW Stairs (FIM): 5 # of Steps: 8 Stairs Level Of Assist: 5 PT Plan Treatment/Plan Treatment Plan: Continue Plan of Care Treatment Plan: Bed Mobility, Education, Functional Activity Monique, Functional Strength, Gait, Safety, Therapeutic Exercise, Transfers Treatment Duration: Jan 08, 2018 Frequency: 6 times per week (then increase to BID as patient tolerates) Estimated Hrs Per Day: .5 hour per day Patient and/or Family Agrees t: Yes Safety Risks/Education Patient Education: Transfer Techniques, Correct Positioning, Disease Process, Safety Issues Teaching Recipient: Patient Teaching Methods: Demonstration, Discussion Response to Teaching: Verbalize Understanding, Return Demonstration, Reinforcement Needed Time/GCodes Time In: 1025 Time Out: 1050 Total Billed Treatment Time: 25 Total Billed Treatment 1,FA15,EX10 G Codes Necessary: EVERETT Andujar SENIOR ATTORNEY Dec 08, 2017 11:11
--- NOTE | 2017-12-08 11:24 | Occupational Ther Daily Note ---
OT Current Status-Daily Note Subjective Pt seen in room, up in bed, agreeable to OT. pain not mentioned. Appearance Alert, cooperative Mental Status/Objective Functional [place] Measure 0=Not Assessed/NA 4=Minimal Assistance 1=Total Assistance 5=Supervision or Setup 2=Maximal Assistance 6=Modified [place] 3=Moderate Assistance 7=Complete [place] ADL-Treatment Pt was able to roll side to side with mod assist to help with personal care. Nursing reported she required to be fed breakfast this morning. Pt was able to get meds to mouth using L hand, wash face with L hand, reach both hands to her eyes to adjust classes, hold a small plastic glass and get a drink with a straw. She said that she had difficulty holding on to her silverware so was provided with foam built-up handle, with verbal instructions. She was encouraged to take at least 10 bites by herself at lunch today. 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 pt left up in bed, 4 rails up , all needs met. Education OT Patient Education: Modified ADL techniques, Purpose of tx/functional activities, Use of adapted equipment Teaching Recipient: Patient Teaching Methods: Discussion Response to Teaching: Verbalize Understanding, Return Demonstration OT Short Term Goals Short Term Goals Time Frame: Dec 21, 2017 Eating(FIM): 4 Grooming(FIM): 4 Bathing(FIM): 3 Upper Body Dressing(FIM): 3 Lower Body Dressing(FIM): 3 Toileting(FIM): 4 Transfers (B,C,W/C) (FIM): 4 Toilet/Commode Transfer(FIM): 4 Shower Transfer(FIM): 3 Additional Short Term Goals: 1-Demonstrate ADL Tasks, 2-Verbalize Understanding , 3-ImproveStrength/Monique 1=Demonstrate adherence to instructed precautions during ADL tasks. 2=Patient will verbalize/demonstrate understanding of assistive devices/ modifications for ADL. 3=Patient will improve strength/tolerance for activity to enable patient to perform ADL's. OT Mcfp Goals Mcfp Goals Time Frame: Jan 04, 2018 Eating (FIM): 5 Grooming(FIM): 5 Bathing(FIM): 4 Upper Body Dressing(FIM): 5 Lower Body Dressing(FIM): 4 Toileting(FIM): 4 Transfers (B,C,W/C) (FIM): 5 Toilet/Commode Transfer(FIM): 5 Shower Transfer(FIM): 4 Additional Goals: 1-Demonstrate ADL Tasks, 2-Verbalize Understanding, 3- ImproveStrength/Monique 1=Demonstrate adherence to instructed precautions during ADL tasks. 2=Patient will verbalize/demonstrate understanding of assistive devices/ modifications for ADL. 3=Patient will improve strength/tolerance for activity to enable patient to perform ADL's. OT Education/Plan Discharge Recommendations Plan/Recommendations: Continue POC Treatment Plan/Plan of Care Patient would benefit from OT for education, treatment and training to promote independence in ADL's, mobility, safety and/or upper extremity function for ADL' s. Plan of Care: ADL Retraining, Functional Mobility, UE Funct Exercise/Act Treatment Duration: Jan 04, 2018 Frequency: 5 times per week Estimated Hrs Per Day: .25 hour per day Agreement: Yes Rehab Potential: Fair Time/GCodes Start Time: 09:20 Stop Time: 09:40 Total Time Billed (hr/min): 20 Billed Treatment Time visit, 20 minutes ADL RANCHO QUINTANA OT Dec 08, 2017 11:24
[2017-12-08] MEDS ORDERED: meTOproloL SUCCINATE 50 MG (TOPROL XL) TAB PO NR (16:15)
[2017-12-08] MEDS ORDERED: meTOproloL SUCCINATE 50 MG (TOPROL XL) TAB PO ONE (16:22)
[2017-12-08] MEDS: SACUBITRIL/VALSARTAN 24/26 MG (ENTRESTO) TABLET PO SCH (21:27)
[2017-12-09 00:58] VITALS: BP 133/79
[2017-12-09] MEDS: RT-ALBUTEROL/IPRATROPIUM 3 ML (DUONEB) VIAL INH SCH ×3 (01:47→10:02)
[2017-12-09] MEDS: PIPERACILLIN/TAZO 4.5 GM/NS 100 ML IV SCH ×4 (02:10→09:39)
[2017-12-09] MEDS: ACETAMINOPHEN 325 MG TABLET PO PRN (02:15)
[2017-12-09] MEDS: ONDANSETRON 4 MG/2 ML (SDV) Z0FRAN IV PRN (02:15)
[2017-12-09 04:00] VITALS: BP 159/74
[2017-12-09 05:28] LABS: BASOPHILS % (AUTO) 0 % (0-10); EOSINOPHILS # (AUTO) 0.3 10^3/uL (0.0-0.3); EOSINOPHILS % (AUTO) 2 % (0-10); HEMATOCRIT 33 % (35-52); HEMOGLOBIN 10.5 G/DL (11.5-16.0); LYMPHOCYTES % (AUTO) 15 % (12-44); MEAN CORPUSCULAR HEMOGLOBIN 28 PG (25-34); MEAN CORPUSCULAR HGB CONC 32 G/DL (32-36); MEAN CORPUSCULAR VOLUME 89 FL (80-99); MEAN PLATELET VOLUME 9.7 FL (7.4-10.4); MONOCYTES # (AUTO) 0.7 X 10^3 (0.0-1.0); MONOCYTES % (AUTO) 5 % (0-12); NEUTROPHILS # (AUTO) 10.6 X 10^3 (1.8-7.8); NEUTROPHILS % (AUTO) 78 % (42-75); PLATELET COUNT 501 10^3/uL (130-400); RED BLOOD COUNT 3.74 10^6/uL (4.35-5.85); RED CELL DISTRIBUTION WIDTH 14.6 % (10.0-14.5); WHITE BLOOD COUNT 13.6 10^3/uL (4.3-11.0)
[2017-12-09 06:23] LABS: CALCIUM 7.9 MG/DL (8.5-10.1); CREATININE SERUM 1.24 MG/DL (0.60-1.30); MAGNESIUM 2.3 MG/DL (1.8-2.4); PHOSPHORUS 4.6 MG/DL (2.3-4.7); POTASSIUM 4.3 MMOL/L (3.6-5.0)
[2017-12-09] MEDS: inSUlin ASPART (NovoLOG) 1 UNIT/0.01 ML (CHARGE PER UNIT) SC SCH ×2 (06:26→11:06)
[2017-12-09] MEDS: PANTOPRAZOLE 40 MG (PROTONIX) TAB PO SCH (06:35)
--- NOTE | 2017-12-09 07:43 | Diagnostic Imaging Report ---
INDICATION: Pneumonia. COMPARISON: 12/08/2017. FINDINGS: Single frontal radiographic view of the chest was obtained and again demonstrates moderate cardiomegaly and pulmonary vascular congestion. There is diffuse prominence of pulmonary interstitium. Small bibasilar effusions are again noted. There is no pneumothorax on either side. Overall, aeration is largely stable. Bony structures show no acute abnormalities. IMPRESSION: 1. Stable exam of chest showing cardiomegaly with sequela CHF including interstitial pulmonary edema and small bibasilar effusions. Dictated by: Dictated on workstation # [id number]
[2017-12-09 08:21] VITALS: BP 166/81
[2017-12-09] MEDS ORDERED: CHLORASEPTIC LOZENGE MM PRN (09:15)
[2017-12-09] MEDS ORDERED: CHLORASEPTIC SPRAY 177 ML LIQUID MC PRN (09:15)
--- NOTE | 2017-12-09 09:18 | Discharge Inst-Complex ---
PDI Med Rec & Follow Up Appt. Continued Medications: Acetaminophen (Tylenol Extra Strength) 500 Mg Tablet 500-1000 MG PO Q4H PRN for PAIN-MILD, TAB Acetaminophen/Diphenhydramine (Tylenol Pm Ex-Strength Caplet) 1 Each Tablet 1 TAB PO HS, TAB Apixaban (Eliquis) 5 Mg Tablet 5 MG PO BID, TAB Diclofenac Sodium (Voltaren) 100 Gm Gel..gram. TP BID PRN for JOINT PAIN, TUBE Digoxin (Digoxin) 250 Mcg Tablet 125 MCG PO DAILY, TAB TAKES 1/2 (250 MCG) TABLET Escitalopram Oxalate (Escitalopram Oxalate) 10 Mg Tablet 10 MG PO DAILY PRN for DEPRESSION, TAB Ezetimibe (Ezetimibe) 10 Mg Tablet 10 MG PO HS, TAB Fluticasone Propionate (Fluticasone Propionate) 16 Gm [place].susp 1 SPRAY NS BID PRN for ALLERGIES, EA Furosemide (Furosemide) 40 Mg Tablet 40 MG PO DAILY PRN for SWELLING, TAB LAST FILLED #30 09-01-17 Gabapentin (Gabapentin) 600 Mg Tablet 600 MG PO TID, TAB LAST FILLED #270 01-27-17 Insulin Glargine,Hum.rec.anlog (Basaglar Kwikpen U-100) 100 Unit/1 Ml Insuln.pen 20 UNITS SC DAILY, EA Levothyroxine Sodium (Levothyroxine Sodium) 50 Mcg Tablet 50 MCG PO DAILY, TAB Metformin HCl (Metformin HCl) 500 Mg Tablet 500 MG PO HS, TAB Metformin HCl (Metformin HCl) 500 Mg Tablet 750 MG PO 0700,1200, TAB TAKES 1 & 1/2 (500MG) TABLETS Metoprolol Succinate (Metoprolol Succinate) 100 Mg Tab.er.24h 100 MG PO DAILY, TAB Nitroglycerin (Nitroglycerin) 0.4 Mg Tab.subl 0.4 MG SL UD PRN for CHEST PAIN, TAB [place] 3 Polyunsat Fatty Acids (Fish Oil 1,000 mg Capsule) 1,000 Mg Cap 1000 MG PO DAILY, CAP Pantoprazole Sodium (Pantoprazole Sodium) 40 Mg Tablet.dr 40 MG PO DAILY, TAB Potassium Chloride (Potassium Chloride) 20 Meq Tab.er.prt 20 MEQ PO DAILY PRN for WHEN TAKING FUROSEMIDE, TAB Prasugrel HCl (Prasugrel HCl) 10 Mg Tablet 10 MG PO DAILY, TAB Sacubitril/Valsartan (Entresto 24 mg-26 mg Tablet) 1 Each Tablet 1 TAB PO BID, TAB Prescription: Transmitted to Pharmacy Patient Instructions: DISCHARGE TO INPT REHAB Activity, Diet and PDI Resume Normal Activity: Yes KURTIS DIEGO MD Dec 09, 2017 09:18
--- NOTE | 2017-12-09 09:19 | Discharge Summary ---
Diagnosis/Chief Complaint Date of Admission Dec 02, 2017 at 04:58 Date of Discharge Discharge Date: Dec 09, 2017 Discharge Time: 0930 Reason Hospital Visit PT IS A 77 Y/O FEMALE WHO IS KNOWN TO ME FROM CLINIC. SHE PRESENTED TO THE EMERGENCY DEPARTMENT LAST NIGHT AFTER HAVING HEMOPTYSIS. 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 SHE REPORTS THAT SHE WAS NOT SHORT OF BREATH OR COUGHING AT ALL DURING THIS POINT, HOWEVER SHE STARTED TO HAVE COUGHING IN THE MIDDLE OF THE NIGHT. SHE REPORTS THAT SHE WAS LYING ON HER RIGHT SIDE IN BED, COUGHING INTO THE PILLOWS IN AN ATTEMPT TO NOT WAKE UP HER , SHE THEN BECAME NAUSEATED, WENT TO THE RESTROOM AND VOMITED TWICE. ON THE SECOND EPISODE OF EMESIS SHE SAW BLOOD IN THE TOILET AND THEN STARTED COUGHING AND HAD BLOOD IN THE TISSUE. SHE THEN BECAME PROGRESSIVELY SHORT OF BREATH AND WAS TAKEN TO THE HOSPITAL WHERE SHE WAS FOUND TO HAVE ALMOST COMPLETE WHITE OUT OF THE RIGHT LUNG. Discharge Summary Discharge Physical Examination Allergies: Coded Allergies: canagliflozin (Verified Allergy, Severe, LIGHT HEADED/HEADACHES/UTI/FELT LIKE SHE WOULD PASS OUT, 02/18/17) liraglutide (Verified Allergy, Severe, RAPID HEART RATE/HEADACHE/DIZZINESS , 02/18/17) Cjrquvb-Bky-Eoa Reductase Inhibitor (Verified Adverse Reaction, Severe, MUSCLE PAIN, 02/18/17) Vitals & I&Os Vital Signs Date Time Temp Pulse Resp B/P (MAP) Pulse Ox O2 Delivery O2 Flow Rate FiO2 12/09/17 08:21 97.3 91 20 166/81 (109) 95 Nasal Cannula 2.00 12/06/17 11:00 21 General Appearance: Other ( INTUBATED, SEDATED) Respiratory: Other (DECREASED AIR MOVEMENT THROUGHOUT) Cardiovascular: Regular Rate, Other (II/ SABRINA) Extremities: Other (EDEMA OF HANDS) Psych/Mental Status: Other (SEDATED ON VENT) Hospital Course Pending Labs Laboratory Tests 12/09/17 05:20: White Blood Count 13.6, Red Blood Count 3.74, Hemoglobin 10.5, Hematocrit 33, Mean Corpuscular Volume 89, Mean Corpuscular Hemoglobin 28, Mean Corpuscular Hemoglobin Concent 32, Red Cell Distribution Width 14.6, Platelet Count 501, Mean Platelet Volume 9.7, Neutrophils (%) (Auto) 78, Lymphocytes (%) (Auto) 15, Monocytes (%) (Auto) 5, Eosinophils (%) (Auto) 2, Basophils (%) (Auto) 0, Neutrophils # (Auto) 10.6, Lymphocytes # (Auto) 2.0, Monocytes # (Auto) 0.7, Eosinophils # (Auto) 0.3, Basophils # (Auto) 0.0, Sodium Level 142, Potassium Level 4.3, Chloride Level 108, Carbon Dioxide Level 22, Anion Gap 12, Blood Urea Nitrogen 34, Creatinine 1.24, Estimat Glomerular Filtration Rate 42, BUN/ Creatinine Ratio 27, Glucose Level 167, Calcium Level 7.9, Phosphorus Level 4.6 , Magnesium Level 2.3 Discharge Instructions to patient/family Please see electronic discharge instructions given to patient. Discharge Medications Reviewed and agree with Discharge Medication list on patient's Discharge Instruction sheet Clinical Quality Measures DVT/VTE Risk/Contraindication: Risk Factor Score Per Nursin RFS Level Per Nursing on Admit: 3=High KURTIS DIEGO MD Dec 09, 2017 09:19
[2017-12-09] MEDS: SACUBITRIL/VALSARTAN 24/26 MG (ENTRESTO) TABLET PO SCH (09:25)
[2017-12-09] MEDS: ASPIRIN 81 MG CHEW (CHILDREN'S ASA) PO SCH (09:25)
[2017-12-09] MEDS: meTOprolol SUCCINATE 100 MG (TOPROL XL) TAB PO SCH (09:25)
[2017-12-09] MEDS ORDERED: meTOprolol SUCCINATE 100 MG (TOPROL XL) TAB PO NR (11:32)
--- NOTE | 2017-12-09 11:33 | Progress Note-Cardiology ---
Cardiology SOAP Progress Note Subjective: No cp or palp or syncope Gen swelling, improving BP elevated Gen malaise Objective: I&O/Vital Signs 12/09/17 12/09/17 12/09/17 12/09/17 00:58 01:25 01:47 04:00 Temp 98.4 97.9 Pulse 95 92 95 Resp 18 18 B/P (MAP) 133/79 (97) 159/74 (102) Pulse Ox 95 88 96 O2 Delivery Room Air Room Air Nasal Cannula O2 Flow Rate 2.00 2.00 12/09/17 12/09/17 12/09/17 12/09/17 06:29 07:00 08:00 08:21 Temp 97.3 Pulse 83 91 Resp 20 B/P (MAP) 166/81 (109) Pulse Ox 94 92 95 O2 Delivery Room Air Room Air Nasal Cannula O2 Flow Rate 2.00 2.00 12/09/17 10:03 Pulse Ox 92 O2 Delivery Room Air 12/09/17 00:00 Intake Total 1320 ml Output Total 575 ml Balance 745 ml Weight (Pounds): 196 Weight (Ounces): 9.6 Weight (Calculated Kilograms): 89.061631 Constitutional: AAO x 3, well-developed, well-nourished Respiratory: No accessory muscle use, No respiratory distress; chest expansion is symmetric, chest is bilaterally symmetric, other (diminished throughout all guevara) Cardiovascular: regular rate-rhythm; No JVD; S1 and S2, systolic murmur (3/6 MSM) Gastrointestional: No tender; soft, round; No guarding, No rebound; audible bowel sounds Extremities: other (anasarca); No clubbing, No cyanosis Neurologic/Psychiatric: grossly intact Skin: normal color, warm/dry; No rash, No ulcerations Results/Procedures: Labs Laboratory Tests 12/08/17 13:05: Glucometer 330H 12/08/17 18:02: Glucometer 258H 12/08/17 21:12: Glucometer 156H 12/09/17 05:20: White Blood Count 13.6H, Red Blood Count 3.74L, Hemoglobin 10.5L, Hematocrit 33L , Mean Corpuscular Volume 89, Mean Corpuscular Hemoglobin 28, Mean Corpuscular Hemoglobin Concent 32, Red Cell Distribution Width 14.6H, Platelet Count 501H, Mean Platelet Volume 9.7, Neutrophils (%) (Auto) 78H, Lymphocytes (%) (Auto) 15 , Monocytes (%) (Auto) 5, Eosinophils (%) (Auto) 2, Basophils (%) (Auto) 0, Neutrophils # (Auto) 10.6H, Lymphocytes # (Auto) 2.0, Monocytes # (Auto) 0.7, Eosinophils # (Auto) 0.3, Basophils # (Auto) 0.0, Sodium Level 142, Potassium Level 4.3, Chloride Level 108H, Carbon Dioxide Level 22, Anion Gap 12, Blood Urea Nitrogen 34H, Creatinine 1.24, Estimat Glomerular Filtration Rate 42, BUN/ Creatinine Ratio 27, Glucose Level 167H, Calcium Level 7.9L, Phosphorus Level 4.6, Magnesium Level 2.3 12/09/17 10:50: Glucometer 226H Microbiology 12/02/17 Blood Culture - Final, Complete Propionibacterium species See Comments 12/03/17 Mycobacterial Culture - Preliminary, Resulted 12/02/17 Urine Culture - Final, Complete Klebsiella pneumoniae See Report A/P: Assessment: Uncontrolled hypertension Pneumonia with sepsis - management per Medical and Pulmonary Services Hemoptysis, likely due to pneumonia Blood clots in stools, suggestive of GI bleed or swallowed blood from hemoptysis. W/u for this is with the [employer] Chronic diastolic CHF PAF, first documented on tele strips at Cardiac Rehab in early 2016. Currently in NSR H/o ischemic cm. LVEF on 02/18/17 was 35%. Echo of 12/03/17: LVEF 60-65%, LVH, grade 1 rehman dysfunction, mild to mod MR, mod to severe with valve area approx 1.1 sq cm and gradient approx 25 mmHg, PASP 25 mmHg CAD. S/p prox LAD stenting by Dr Obrien at [facility] on 02/20/17: Promus 2.5x24. Cath on 02/18/17 prior to cor stenting showed dual LAD, one of which was proximally occluded and the other was severely diseased. Rest of the cors had mod dz MPI of 01/12/17: anteroapical infarction w/o significant ischemia; LVEF 39% Dizziness and vertigo, improved after reduction of anti-htn and Invokana treatment in early Apr 2015. MRI head on 05/10/15 (Dr Mariano) did not show lesions other than possibility of chronic microvascular disease Valvular heart disease. Cath of 02/18/17 showed mod MR and a gradient across AoV of 25-30 mmHg. Mod with valve area 1.4 cm sq and mean gradient across aortic valve of 23 mmHg on echo of 01/08/17. Subsequent echo as noted above DM II CKD stage 3, likely diabetic nephropathy. eGFR on 05/25/17 is 44 Hyperlipidemia, but has intolerance to statins (severe joint pains) Hypothyroidism, treated with thyroid replacement therapy. TSH normal (2.19) on Bilateral leg and foot discomfort which has been diagnosed as neuropathy. Normal bilat EDDY in June 2014 Mild bilat carotid arterial disease on carotid u/s of 06/08/17 Abn ECG. ECG of 05/13/17: NSR, old ASMI H/o surgeries: S/p hysterectomy w/o oophorectomy; S/p bilateral knee replacement ; H/o R rotator cuff surgery Plan: * Complex management due to multiple comorbidities * Additional bb today * Consider adding Entresto back to the regimen * Monitor labs * Continue current card regimen This is late entry for my visit to the patient on 12/08/17 at 9 am DEMARIO LOPEZ MD FACP FAC CCDS Dec 09, 2017 11:33
--- NOTE | 2017-12-09 11:35 | Progress Note-Cardiology ---
Cardiology SOAP Progress Note Subjective: Slowly improving gen malaise Tires easily No cp or palp or syncope Gen swelling improving Objective: I&O/Vital Signs 12/09/17 12/09/17 12/09/17 12/09/17 00:58 01:25 01:47 04:00 Temp 98.4 97.9 Pulse 95 92 95 Resp 18 18 B/P (MAP) 133/79 (97) 159/74 (102) Pulse Ox 95 88 96 O2 Delivery Room Air Room Air Nasal Cannula O2 Flow Rate 2.00 2.00 12/09/17 12/09/17 12/09/17 12/09/17 06:29 07:00 08:00 08:21 Temp 97.3 Pulse 83 91 Resp 20 B/P (MAP) 166/81 (109) Pulse Ox 94 92 95 O2 Delivery Room Air Room Air Nasal Cannula O2 Flow Rate 2.00 2.00 12/09/17 10:03 Pulse Ox 92 O2 Delivery Room Air 12/09/17 00:00 Intake Total 1320 ml Output Total 575 ml Balance 745 ml Weight (Pounds): 196 Weight (Ounces): 9.6 Weight (Calculated Kilograms): 89.236928 Constitutional: AAO x 3, well-developed, well-nourished Respiratory: No accessory muscle use, No respiratory distress; chest expansion is symmetric, chest is bilaterally symmetric, other (diminished throughout all guevara) Cardiovascular: regular rate-rhythm; No JVD; S1 and S2, systolic murmur (3/6 MSM) Gastrointestional: No tender; soft, round; No guarding, No rebound; audible bowel sounds Extremities: other (anasarca); No clubbing, No cyanosis Neurologic/Psychiatric: grossly intact Skin: normal color, warm/dry; No rash, No ulcerations Results/Procedures: Labs Laboratory Tests 12/08/17 13:05: Glucometer 330H 12/08/17 18:02: Glucometer 258H 12/08/17 21:12: Glucometer 156H 12/09/17 05:20: White Blood Count 13.6H, Red Blood Count 3.74L, Hemoglobin 10.5L, Hematocrit 33L , Mean Corpuscular Volume 89, Mean Corpuscular Hemoglobin 28, Mean Corpuscular Hemoglobin Concent 32, Red Cell Distribution Width 14.6H, Platelet Count 501H, Mean Platelet Volume 9.7, Neutrophils (%) (Auto) 78H, Lymphocytes (%) (Auto) 15 , Monocytes (%) (Auto) 5, Eosinophils (%) (Auto) 2, Basophils (%) (Auto) 0, Neutrophils # (Auto) 10.6H, Lymphocytes # (Auto) 2.0, Monocytes # (Auto) 0.7, Eosinophils # (Auto) 0.3, Basophils # (Auto) 0.0, Sodium Level 142, Potassium Level 4.3, Chloride Level 108H, Carbon Dioxide Level 22, Anion Gap 12, Blood Urea Nitrogen 34H, Creatinine 1.24, Estimat Glomerular Filtration Rate 42, BUN/ Creatinine Ratio 27, Glucose Level 167H, Calcium Level 7.9L, Phosphorus Level 4.6, Magnesium Level 2.3 12/09/17 10:50: Glucometer 226H Microbiology 12/02/17 Blood Culture - Final, Complete Propionibacterium species See Comments 12/03/17 Mycobacterial Culture - Preliminary, Resulted 12/02/17 Urine Culture - Final, Complete Klebsiella pneumoniae See Report Laboratory Tests 12/08/17 03:55 12/09/17 05:20 A/P: Assessment: Uncontrolled hypertension Pneumonia with sepsis - management per Medical and Pulmonary Services Hemoptysis, likely due to pneumonia, now resolved Blood clots in stools, suggestive of GI bleed or swallowed blood from hemoptysis. W/u for this is with the [facility] Chronic diastolic CHF PAF, first documented on tele strips at [facility] in early 2016. Currently in NSR H/o ischemic cm. LVEF on 02/18/17 was 35%. Echo of 12/03/17: LVEF 60-65%, LVH, grade 1 rehman dysfunction, mild to mod MR, mod to severe with valve area approx 1.1 sq cm and gradient approx 25 mmHg, PASP 25 mmHg CAD. S/p prox LAD stenting by Dr Obrien at [facility] on 02/20/17: Promus 2.5x24. Cath on 02/18/17 prior to cor stenting showed dual LAD, one of which was proximally occluded and the other was severely diseased. Rest of the cors had mod dz MPI of 01/12/17: anteroapical infarction w/o significant ischemia; LVEF 39% Dizziness and vertigo, improved after reduction of anti-htn and Invokana treatment in early Apr 2015. MRI head on 05/10/15 (Dr Mariano) did not show lesions other than possibility of chronic microvascular disease Valvular heart disease. Cath of 02/18/17 showed mod MR and a gradient across AoV of 25-30 mmHg. Mod with valve area 1.4 cm sq and mean gradient across aortic valve of 23 mmHg on echo of 01/08/17. Subsequent echo as noted above DM II CKD stage 3, likely diabetic nephropathy. eGFR on 05/25/17 is 44 Hyperlipidemia, but has intolerance to statins (severe joint pains) Hypothyroidism, treated with thyroid replacement therapy. TSH normal (2.19) on Bilateral leg and foot discomfort which has been diagnosed as neuropathy. Normal bilat EDDY in June 2014 Mild bilat carotid arterial disease on carotid u/s of 06/08/17 Abn ECG. ECG of 05/13/17: NSR, old ASMI H/o surgeries: S/p hysterectomy w/o oophorectomy; S/p bilateral knee replacement ; H/o R rotator cuff surgery Plan: * Complex management due to multiple comorbidities * Increase bb * Added Entresto back to the regimen * Monitor labs * Consider adding apixaban back to the regimen if no bleeding and if H/H remains stable * Inpt rehab DEMARIO LOPEZ MD FACP FAC CCDS Dec 09, 2017 11:35
[2017-12-09 12:00] VITALS: BP 166/81
[2017-12-10] MEDS ORDERED: meTOprolol SUCCINATE 100 MG (TOPROL XL) TAB PO SCH (09:00)
== END 2017-12-09 11:20 | DRG 853 ==
LOC: EDUNIT# 03:27 → ER 03:28 → ICU 04:58 → 4TH 12-08 08:00
PROVIDERS: ADMIT Family Medicine; ATTEND Family Medicine
PROC: 5A1945Z Respiratory Ventilation, 24-96 Consecutive Hours (ICD-10-PCS; 2017-12-02)
PROC: 0BD88ZX Extraction of Left Upper Lobe Bronchus, Via Natural or Artificial Opening Endoscopic, Diagnostic (ICD-10-PCS; 2017-12-03)
PROC: 0DB78ZX Excision of Stomach, Pylorus, Via Natural or Artificial Opening Endoscopic, Diagnostic (ICD-10-PCS; 2017-12-03)
PROC: 0B9G8ZX Drainage of Left Upper Lung Lobe, Via Natural or Artificial Opening Endoscopic, Diagnostic (ICD-10-PCS; principal; 2017-12-03 13:20)
DX: A41.9 Sepsis, unspecified organism (principal); J18.9 Pneumonia, unspecified organism; R04.2 Hemoptysis; J96.00 Acute respiratory failure, unspecified whether with hypoxia or hypercapnia; N17.9 Acute kidney failure, unspecified; T50.1X5A Adverse effect of loop [high-ceiling] diuretics, initial encounter; I13.0 Hypertensive heart and chronic kidney disease with heart failure and stage 1 through stage 4 chronic kidney disease, or unspecified chronic kidney disease; I50.32 Chronic diastolic (congestive) heart failure; Z66 Do not resuscitate; N18.3 Chronic kidney disease, stage 3 (moderate); E11.21 Type 2 diabetes mellitus with diabetic nephropathy; N39.0 Urinary tract infection, site not specified; B96.1 Klebsiella pneumoniae [K. pneumoniae] as the cause of diseases classified elsewhere; J98.11 Atelectasis; K21.0 Gastro-esophageal reflux disease with esophagitis; K29.70 Gastritis, unspecified, without bleeding; I25.10 Atherosclerotic heart disease of native coronary artery without angina pectoris; R06.03 Acute respiratory distress; E11.51 Type 2 diabetes mellitus with diabetic peripheral angiopathy without gangrene; I48.0 Paroxysmal atrial fibrillation; E86.0 Dehydration; F41.9 Anxiety disorder, unspecified; F32.9 Major depressive disorder, single episode, unspecified; I08.0 Rheumatic disorders of both mitral and aortic valves; E78.00 Pure hypercholesterolemia, unspecified; E03.9 Hypothyroidism, unspecified; D64.9 Anemia, unspecified; Z79.01 Long term (current) use of anticoagulants; Z79.84 Long term (current) use of oral hypoglycemic drugs; Z95.5 Presence of coronary angioplasty implant and graft
CPT/HCPCS: 36415; 36600; 71045; 71250; 80048; 80053; 80162; 80202; 81000; 82805; 82962; 83010; 83605; 83735; 83880; 84100; 84478; 85007; 85014; 85018; 85025; 85027; 85045; 85610; 85730; 86021; 86038; 86256; 87040; 87070; 87077; 87081; 87088; 87101; 87116; 87186; 87205; 87449; 87631; 87804; 87899; 88112; 88305; 88312; 93005; 93306; 94002; 94003; 94640; 94664; 94760; 94799; 96361; 96365; 96375

== ENCOUNTER 2017-12-09 09:28 | Inpatient (IN) | payer MEDICARE ==
[~2017-12-09] VITALS: Ht 160 cm; Wt 69.5 kg
[~2017-12-09 09:28] MED LIST changes: +ACET-2267 PO; +DIGO250T PO; +ESCI10TA55 PO; +INSU100I34 SC; +NITR0.4T39 SL; +POTA20TA15 PO
--- NOTE | 2017-12-09 11:59 | Physical Therapy Evaluation ---
PT Evaluation-General Medical Diagnosis Admission Date Medical Diagnosis: critical illness myopathy Onset Date: Dec 02, 2017 Therapy Diagnosis Therapy Diagnosis: impaired mobility, strength, endurance Height/Weight Height (Feet): 5 Height (Inches): 3.00 Weight (Pounds): 196 Weight (Ounces): 9.6 Referral Physician: Stephane Reason for Referral: Evaluation/Treatment Medical History Pertinent Medical History: CAD, DM, Heart Failure, HTN, PVD Current History ED secondary to coughing up blood/pulmonary edema, renal failure Reviewed History: Yes Social History Home: Single Level Current Living Status: Spouse Entry Into Home: Stairs Without Railing PT Steps Into Home: 2 is in poor health and patient is unsure of how much he would be able to assist her at home. Prior/Core FIM Prior Level of Function Functional [place] Measure 0=Not Assessed/NA 4=Minimal Assistance 1=Total Assistance 5=Supervision or Setup 2=Maximal Assistance 6=Modified [place] 3=Moderate Assistance 7=Complete [place] Bed Mobility: 7 Transfers (B,C,W/C) (FIM): 7 Gait: 7 PT Evaluation-Current Subjective Patient sitting in chair pre tx, agrees to PT, has no complaints of pain. Patient is nauseated and states she is already worn out from just having a shower. Pt/Family Goals "to get stronger and be able to go home" Objective Patient Orientation: Person, Place, Situation Attachments: IV ROM/Strength ROM Lower Extremities WNL Strenght Lower Extremities right lower extremity (hip flexion 2/5, knee flexion 4-/5, knee extension 4-/5, dorsiflexion 4/5), left lower extremity (hip flexion 3-/5, knee flexion 4-/5, knee extension 4-/5, dorsiflexion 4/5) Neuromuscular (Tone, Coordination, Reflexes) NT Sensory Vision: Wears Glasses Hearing: Functional Sensation Right Lower Extremit: Intact Sensation Left Lower Extremity: Intact Transfers Functional [place] Measure 0=Not Assessed/NA 4=Minimal Assistance 1=Total Assistance 5=Supervision or Setup 2=Maximal Assistance 6=Modified [place] 3=Moderate Assistance 7=Complete IndependenceIRFPAI Quality Coding Scale 6 Independent with activity with or without an assistive device 5 Patient requires set up or clean up by helper. Patient completes activity by themselves 4 Supervision or touching assist (CGA). [place] provide cues , steadying assist 3 The helper provides less than half the effort to complete the activity 2 The helper provides more than half the effort to complete the activity 1 Dependent. The helper does all the effort to complete an activity 7 Patient refused to complete or attempt activity 9 The patient did not perform the activity before the current illness or injury 88 Not attempted due to Medical conditions or safety concerns Transfers (B, C, W/C) (FIM): 2 Scootin Rollin Roll Left to Right (QC): 4 Supine to/from Sit: 2 Sit to/from Stand: 4 bed t/f WC(FIM only if WC use): 4 Sit to Lying (QC): 2 Lying to Sitting/Side of Bed(Q: 2 Sit to Stand (QC): 3 Chair/Xjm-an-Cavsh Xfer(QC): 4 Patient performs supine <-> sit with max assist, sit to stand min assist, stand pivot transfers CGA. Patient needs cues for hand placement and safety, will try to pull up from the walker. Gait Does the Patient Walk?: Yes Mode of Locomotion: Walk Anticipated Mode of Locomotion: Walk Gait (FIM): 1 Walk 10 feet (QC): 4 Walk 50 ft with 2 Turns(QC): 88 Walk 150 ft (QC): 88 Walking 10ft/uneven surface-QC: 88 Distance: 10'x2 Gait Level of Assist: 4 Gait Persons Needed: 1 Gait Assistive Device: FWW Comments/Gait Description Patient can ambulate 10' with a rolling walker with CGA. Patient ambulates very slowly and has poor endurance and can barely make the 10'. Walking on an uneven surface is not recommended at this time due to safety reasons. Wheelchair Training Does the Pt Use a Wheelchair?: Yes Wheelchair (FIM): 1 Type of Wheelchair: Manual Stairs If not tested on admit;explain Patient does not have the strength required to even go up one step and cannot flex at the hip enough to get her foot onto a step. Balance Sitting Static: Normal Sitting Dynamic: Normal Standing Static: Fair Standing Dynamic: Fair Assessment/Needs Patient has impaired mobility, strength, endurance. She is very debilitated and may need co-treatment until she get stronger. Rehab Potential: Fair PT Short Term Goals Short Term Goals Time Frame: Dec 16, 2017 Transfers (B,C,W/C) (FIM): 4 Gait (FIM): 1 Gait Distance Comment: 20' Gait Level of Assist: 4 Gait Assistive Device: FWW PT Senior Living Goals Heavy Duty Diesel Mechanic Goals PT Heavy Duty Diesel Mechanic Goals Time Frame: Dec 30, 2017 Transfers (B,C,W/C) (FIM): 5 Sit to Lying (QC): 4 Lying-Sitting on Side/Bed(QC): 4 Sit to Stand (QC): 4 Rollin Roll Left to Right (QC): 4 Chair/Gyf-fo-Xjpfn Xfer(QC): 4 Car Transfer (QC): 4 Gait (FIM): 2 Distance: 50' Walk 10 feet (QC): 4 Walk 10ft-Uneven Surface(QC): 4 Walk 50ft with 2 Turns (QC): 4 Gait Level of Assist: 5 Gait Assistive Device: FWW Stairs (FIM): 2 # of Steps: 4 1 Step (curb) (QC): 4 4 Steps (QC): 4 Stairs Level Of Assist: 4 PT Plan Problem List Problem List: Activity Tolerance, Functional Strength, Safety, Balance, Gait, Transfer, Bed Mobility Treatment/Plan Treatment Plan: Continue Plan of Care Treatment Plan: Bed Mobility, Concurrent Therapy, Education, Functional Activity Monique, Functional Strength, Group Therapy, Gait, Safety, Therapeutic Exercise, Transfers Treatment Duration: Dec 30, 2017 Frequency: At least 5 of 7 days/Wk (IRF) Estimated Hrs Per Day: 1.5 hours per day Patient and/or Family Agrees t: Yes Safety Risks/Education Patient Education: Gait Training, Transfer Techniques, Correct Positioning, W/ C Management, Safety Issues Teaching Recipient: Patient Teaching Methods: Demonstration, Discussion Response to Teaching: Reinforcement Needed Discharge Recommendations Plan Patient will perform bed mobility and transfer training, balance and endurance training, functional strengthening, stair training, gait training, and education , to improve functional mobility and independence at home. Therapy D/C Recommendations: Home w/ Family Support, Long Term (TCU/NH) Time/GCodes Time In: 1120 Time Out: 1200 Total Billed Treatment Time: 40 Total Billed Treatment 1 visit EVM 30' GT 10' LINDA BARRIGA PT Dec 09, 2017 11:59
[2017-12-09] MEDS ORDERED: FLUTICASONE NASAL SPRAY (FLONASE) 16 GM BTL NS PRN (12:15)
[2017-12-09] MEDS ORDERED: ACETAMINOPHEN 500 MG TAB (TYLENOL) PO PRN (12:15)
[2017-12-09] MEDS ORDERED: NITROGLYCERIN 0.4 MG SL TABS BTL 25'S SL PRN (12:15)
[2017-12-09] MEDS ORDERED: DICLOFENAC 1% GEL 100 GM (VOLTAREN) TUBE TOP PRN (12:15)
[2017-12-09] MEDS ORDERED: RT-ALBUTEROL/IPRATROPIUM 3 ML (DUONEB) VIAL INH PRN (13:00)
--- NOTE | 2017-12-09 13:41 | Physical Therapy Daily Note ---
PT Daily Note-Current Subjective Patient reports fatigue and a sore throat. Agrees to PT. Pain Numeric Pain Scale: 5-Moderate Pain Location Body Site: Throat Pain Description: Ache Mental Status Patient Orientation: Normal For Age Attachments: IV Transfers Functional [place] Measure 0=Not Assessed/NA 4=Minimal Assistance 1=Total Assistance 5=Supervision or Setup 2=Maximal Assistance 6=Modified [place] 3=Moderate Assistance 7=Complete IndependenceIRFPAI Quality Coding Scale 6 Independent with activity with or without an assistive device 5 Patient requires set up or clean up by helper. Patient completes activity by themselves 4 Supervision or touching assist (CGA). [place] provide cues , steadying assist 3 The helper provides less than half the effort to complete the activity 2 The helper provides more than half the effort to complete the activity 1 Dependent. The helper does all the effort to complete an activity 7 Patient refused to complete or attempt activity 9 The patient did not perform the activity before the current illness or injury 88 Not attempted due to Medical conditions or safety concerns Transfers (B, C, W/C) (FIM): 3 Scootin Rollin Roll Left to Right (QC): 3 Supine to/from Sit: 4 Sit to/from Stand: 3 Sit to Lying (QC): 4 Sit to Stand (QC): 3 Chair/Udb-fm-Mbaez Xfer(QC): 4 Bed to/from Chair: 4 Car Transfer (QC): 3 Gait Training Does the Patient Walk?: Yes Gait (FIM): 2 Distance (FIM): 7=375-35 ft Distance: 65' x 2 Walk 10 feet (QC): 4 Walk 50 ft with 2 Turns(QC): 4 Walking 10ft/uneven surface-QC: 4 Gait Level of Assist: 4 Gait Assistive Device: FWW slow, steady Exercises Seated Therapy Exercises: Ankle pumps, Long arc quads Seated Reps: 15 Assessment Patient tolerated treatment well. She is very fatigued and per patient report, sleep deprived. PT Short Term Goals Short Term Goals Time Frame: Dec 16, 2017 Transfers (B,C,W/C) (FIM): 4 Gait (FIM): 1 Gait Distance Comment: 20' Gait Level of Assist: 4 Gait Assistive Device: FWW PT Associate Juvenile Court Judge Goals Associate Juvenile Court Judge Goals PT Associate Juvenile Court Judge Goals Time Frame: Dec 30, 2017 Transfers (B,C,W/C) (FIM): 5 Sit to Lying (QC): 4 Lying-Sitting on Side/Bed(QC): 4 Sit to Stand (QC): 4 Rollin Roll Left to Right (QC): 4 Chair/Yns-ln-Wueom Xfer(QC): 4 Car Transfer (QC): 4 Gait (FIM): 2 Distance: 50' Walk 10 feet (QC): 4 Walk 10ft-Uneven Surface(QC): 4 Walk 50ft with 2 Turns (QC): 4 Gait Level of Assist: 5 Gait Assistive Device: FWW Stairs (FIM): 2 # of Steps: 4 1 Step (curb) (QC): 4 4 Steps (QC): 4 Stairs Level Of Assist: 4 PT Plan Treatment/Plan Treatment Plan: Continue Plan of Care Treatment Plan: Bed Mobility, Concurrent Therapy, Education, Functional Activity Monique, Functional Strength, Group Therapy, Gait, Safety, Therapeutic Exercise, Transfers Treatment Duration: Dec 30, 2017 Frequency: At least 5 of 7 days/Wk (IRF) Estimated Hrs Per Day: 1.5 hours per day Patient and/or Family Agrees t: Yes Time/GCodes Time In: 1300 Time Out: 1330 Total Billed Treatment Time: 30 Total Billed Treatment 1 visit FA x 2 30 min NAVIN SANTILLAN PT Dec 09, 2017 13:41
[2017-12-09] MEDS: GABAPENTIN 600 MG (NEURONTIN) TAB PO SCH ×2 (13:45→21:58)
[2017-12-09] MEDS: RT-ALBUTEROL/IPRATROPIUM 3 ML (DUONEB) VIAL INH SCH ×3 (14:23→22:20)
[2017-12-09] MEDS ORDERED: NON-FORMULARY MEDICATION 1 EA EA PO PRN (14:45)
--- NOTE | 2017-12-09 14:49 | Occupational Therapy Eval ---
OT Evaluation-General/PLF Medical Diagnosis Admission Date Dec 09, 2017 at 11:21 Medical Diagnosis: critical illness myopathy Onset Date: Dec 02, 2017 Therapy Diagnosis Therapy Diagnosis: decr self care, weakness, decr act sam, decr funct mob Height/Weight Height (Feet): 5 Height (Inches): 3.00 Weight (Pounds): 196 Weight (Ounces): 9.6 Precautions Precautions/Isolations: Fall Prevention, Standard Precautions Referral Physician: Stephane Referral Reason: Evaluation/Treatment Medical History Pertinent Medical History: CAD, DM, Heart Failure, HTN, PVD Additional Medical History Bilateral total knee replacement, bilat CTS coronary stent. Aortic stenosis. Chronic UTI. Neuropathy in feet. Current History Admitted through ED with pneumonia, UTI, sepsis. is currently getting chemo for acute leukemia Reviewed History: Yes Social History Home: Single Level Current Living Status: Spouse Entry Into Home: Stairs Without Railing Steps Into Home: 2 ADL-Prior Level of Function ADL PLOF Comments Pt reported that she was previously able to manage all of her basic self care needs. 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 She still drives and cares for her home, although she is planning on getting a inside sales coordinator after discharge. DME/Equipment: Shower, Tub (whirlpool) OT Current Status Subjective Pt seen in room, up in bed, agreeable to OT. Pain reported 0/10. Appearance Alert, cooperative Mental Status/Objective Patient Orientation: Person, Place, Time (year, month), Situation Attachments: IV, Telemetry Current Glasses/Contacts: Yes Hearing Aids: No Dentures/Partials: No Hand Dominance: Right Upper Extremity ROM Grossly WFL bilat (shoulder flex/abd approx 120 on R, 80 on L) Upper Extremity Coordination Decreased due to edema and weakness. Shaking in UEs while eating Upper Extremity Strength Shoulders 2/5 bilat. Elbows, forearms, wrists 3+/5 bilat Edema: Bilat hands Pt reported old rotator cuff injury R shoulder, with surgery ADL-Treatment ADL-Current Pt was feeding herself lunch, holding bowl with one hand and spoon with built up handle in other. She had also taken some bites of sandwich and was able to get a drink of water. Setup. Functional [place] Measure 0=Not Assessed/NA 4=Minimal Assistance 1=Total Assistance 5=Supervision or Setup 2=Maximal Assistance 6=Modified [place] 3=Moderate Assistance 7=Complete IndependenceIRFPAI Quality Coding Scale 6 Independent with activity with or without an assistive device 5 Patient requires set up or clean up by helper. Patient completes activity by themselves 4 Supervision or touching assist (CGA). [place] provide cues , steadying assist 3 The helper provides less than half the effort to complete the activity 2 The helper provides more than half the effort to complete the activity 1 Dependent. The helper does all the effort to complete an activity 7 Patient refused to complete or attempt activity 9 The patient did not perform the activity before the current illness or injury 88 Not attempted due to Medical conditions or safety concerns Eating (FIM): 5 (Setup, built up handle on spoon) Eating (QC): 5 (setup) Education OT Patient Education: Purpose of tx/functional activities, Rehab process Teaching Recipient: Patient Teaching Methods: Discussion Response to Teaching: Verbalize Understanding, Reinforcement Needed OT Short Term Goals Short Term Goals Time Frame: Dec 16, 2017 Eating(FIM): 7 Toileting(FIM): 5 Toilet/Commode Transfer(FIM): 5 Additional Short Term Goals: 1-Demonstrate ADL Tasks, 2-Verbalize Understanding , 3-ImproveStrength/Monique 1=Demonstrate adherence to instructed precautions during ADL tasks. 2=Patient will verbalize/demonstrate understanding of assistive devices/ modifications for ADL. 3=Patient will improve strength/tolerance for activity to enable patient to perform ADL's. OT Glaze Carrier Goals Mcc Goals Time Frame: Dec 30, 2017 Eating (FIM): 7 Eating (QC): 6 Groomin Oral Hygiene (QC): 6 Bathing(FIM): 6 Shower/Bathe Self (QC): 6 Upper Body Dressing(FIM): 6 Upper Body Dressing (QC): 6 Lower Body Dressing(FIM): 6 Lower Body Dressing (QC): 6 On/Off Footwear (QC): 6 Toileting(FIM): 6 Toileting Hygiene (QC): 6 Toilet/Commode Transfer(FIM): 6 Toilet/Commode Transfer (QC): 6 Shower Transfer(FIM): 6 Additional Goals: 1-Demonstrate ADL Tasks, 2-Verbalize Understanding, 3- ImproveStrength/Monique 1=Demonstrate adherence to instructed precautions during ADL tasks. 2=Patient will verbalize/demonstrate understanding of assistive devices/ modifications for ADL. 3=Patient will improve strength/tolerance for activity to enable patient to perform ADL's. OT Education/Plan Problem List/Assessment Assessment: Decreased Activ Tolerance, Decreased UE Strength, Dependent Transfers, Edema, Impaired Coordination, Impaired Self-Care Skills, Restricted Funct UE ROM Pt would benefit from skilled OT to increase her independence in basic self care to allow her to safely return home to live with her Discharge Recommendations Plan/Recommendations: Continue POC Treatment Plan/Plan of Care Treatment,Training & Education: Yes Patient would benefit from OT for education, treatment and training to promote independence in ADL's, mobility, safety and/or upper extremity function for ADL' s. Plan of Care: ADL Retraining, Functional Mobility, Group Exercise/Act as Ind ( educaiton, exercise, activity tolerance, functional activities, memory, socialization), UE Funct Exercise/Act, UE Neuromus Re-Ed/Coord Treatment Duration: Dec 30, 2017 Frequency: At least 5 of 7 days/Wk (IRF) Estimated Hrs Per Day: 1.5 hours per day Agreement: Yes Rehab Potential: Fair Time/GCodes Start Time: 12:30 Stop Time: 13:00 Total Time Billed (hr/min): 30 Billed Treatment Time visit, 30 minutes evaluation high intensity RANCHO QUINTANA OT Dec 09, 2017 14:49
--- NOTE | 2017-12-09 14:51 | Physical Therapy Daily Note ---
PT Daily Note-Current Subjective Patient agrees to PT. She report she wants to stay out of bed. Pain Numeric Pain Scale: 0-No Pain Location: No Pain Reported Mental Status Patient Orientation: Normal For Age Transfers Functional [place] Measure 0=Not Assessed/NA 4=Minimal Assistance 1=Total Assistance 5=Supervision or Setup 2=Maximal Assistance 6=Modified [place] 3=Moderate Assistance 7=Complete IndependenceIRFPAI Quality Coding Scale 6 Independent with activity with or without an assistive device 5 Patient requires set up or clean up by helper. Patient completes activity by themselves 4 Supervision or touching assist (CGA). [place] provide cues , steadying assist 3 The helper provides less than half the effort to complete the activity 2 The helper provides more than half the effort to complete the activity 1 Dependent. The helper does all the effort to complete an activity 7 Patient refused to complete or attempt activity 9 The patient did not perform the activity before the current illness or injury 88 Not attempted due to Medical conditions or safety concerns Transfers (B, C, W/C) (FIM): 4 Scootin Sit to/from Stand: 5 Sit to Stand (QC): 4 Chair/Zqd-eo-Ioxba Xfer(QC): 4 Gait Training Does the Patient Walk?: Yes Gait (FIM): 1 Distance (FIM): 1=up to 49 ft Distance: 20' x 2 Walk 10 feet (QC): 4 Gait Level of Assist: 4 Gait Assistive Device: FWW safe and functional Assessment Patient performed toileting SBA and returned to recliner with needs met. PT Short Term Goals Short Term Goals Time Frame: Dec 16, 2017 Transfers (B,C,W/C) (FIM): 4 Gait (FIM): 1 Gait Distance Comment: 20' Gait Level of Assist: 4 Gait Assistive Device: FWW PT Snf Goals Grid Molder Goals PT Grid Molder Goals Time Frame: Dec 30, 2017 Transfers (B,C,W/C) (FIM): 5 Sit to Lying (QC): 4 Lying-Sitting on Side/Bed(QC): 4 Sit to Stand (QC): 4 Rollin Roll Left to Right (QC): 4 Chair/Zrj-xy-Ffeza Xfer(QC): 4 Car Transfer (QC): 4 Gait (FIM): 2 Distance: 50' Walk 10 feet (QC): 4 Walk 10ft-Uneven Surface(QC): 4 Walk 50ft with 2 Turns (QC): 4 Gait Level of Assist: 5 Gait Assistive Device: FWW Stairs (FIM): 2 # of Steps: 4 1 Step (curb) (QC): 4 4 Steps (QC): 4 Stairs Level Of Assist: 4 PT Plan Treatment/Plan Treatment Plan: Continue Plan of Care Treatment Plan: Bed Mobility, Concurrent Therapy, Education, Functional Activity Monique, Functional Strength, Group Therapy, Gait, Safety, Therapeutic Exercise, Transfers Treatment Duration: Dec 30, 2017 Frequency: At least 5 of 7 days/Wk (IRF) Estimated Hrs Per Day: 1.5 hours per day Patient and/or Family Agrees t: Yes Time/GCodes Time In: 1435 Time Out: 1445 Total Billed Treatment Time: 10 Total Billed Treatment 1 visit FA 10 min NAVIN SANTILLAN PT Dec 09, 2017 14:51
[2017-12-09] MEDS ORDERED: CHLORASEPTIC LOZENGE MM PRN (15:00)
[2017-12-09] MEDS ORDERED: CHLORASEPTIC SPRAY 177 ML LIQUID MC PRN (15:00)
--- NOTE | 2017-12-09 15:12 | Occupational Ther Daily Note ---
OT Current Status-Daily Note Subjective Pt seen in room, up in recliner, agreeable to OT. No pain mentioned. Appearance Alert, cooperative Mental Status/Objective Functional [place] Measure 0=Not Assessed/NA 4=Minimal Assistance 1=Total Assistance 5=Supervision or Setup 2=Maximal Assistance 6=Modified [place] 3=Moderate Assistance 7=Complete [place] ADL-Treatment Min assist sit to stand from recliner, walked CGA, FWW to w/c and sat, with cues for hand placement. Pt positioned at sink to brush teeth, brush hair, wash hands, which she did with setup. Got up from w/c with min-mod assist, cues for sequencing and hand position, then walked CGA, FWW to toilet. Min assist and cues to sit on toilet, mod assist to get up off toilet. Will look for a BSC so that she has arms to help with pushing up. Managed clothing and hygiene with CGA. Walked back to w/c and transported to gym. Functional [place] Measure 0=Not Assessed/NA 4=Minimal Assistance 1=Total Assistance 5=Supervision or Setup 2=Maximal Assistance 6=Modified [place] 3=Moderate Assistance 7=Complete IndependenceIRFPAI Quality Coding Scale 6 Independent with activity with or without an assistive device 5 Patient requires set up or clean up by helper. Patient completes activity by themselves 4 Supervision or touching assist (CGA). [place] provide cues , steadying assist 3 The helper provides less than half the effort to complete the activity 2 The helper provides more than half the effort to complete the activity 1 Dependent. The helper does all the effort to complete an activity 7 Patient refused to complete or attempt activity 9 The patient did not perform the activity before the current illness or injury 88 Not attempted due to Medical conditions or safety concerns Grooming (FIM): 5 (setup. w/c level) Oral Hygiene (QC): 5 Toileting (FIM): 4 (CGA, tall toilet, grab bar, FWW) Toileting Hygiene (QC): 4 Toilet/Commode Transfer (FIM): 3 (Min assist to sit, mod assist to stand from tall toilet, grab bar FWW) Other Treatment Pt completed 10 minutes bilat UE exercise with arm bike set at 10 arias resistance, with no recovery breaks. To increase activity tolerance, strengthen UEs to help with transfers, help decrease edema in hands. Pt returned to room, left up in w/c, all needs met. Education OT Patient Education: Exercise program, Modified ADL techniques, Progress toward Goal/Update tx plan, Purpose of tx/functional activities, Safety issues, Transfer techniques Teaching Recipient: Patient Teaching Methods: Demonstration, Discussion Response to Teaching: Verbalize Understanding, Return Demonstration, Reinforcement Needed OT Short Term Goals Short Term Goals Time Frame: Dec 16, 2017 Eating(FIM): 7 Toileting(FIM): 5 Toilet/Commode Transfer(FIM): 5 Additional Short Term Goals: 1-Demonstrate ADL Tasks, 2-Verbalize Understanding , 3-ImproveStrength/Monique 1=Demonstrate adherence to instructed precautions during ADL tasks. 2=Patient will verbalize/demonstrate understanding of assistive devices/ modifications for ADL. 3=Patient will improve strength/tolerance for activity to enable patient to perform ADL's. OT Golf Coach Goals Golf Coach Goals Time Frame: Dec 30, 2017 Eating (FIM): 7 Eating (QC): 6 Groomin Oral Hygiene (QC): 6 Bathing(FIM): 6 Shower/Bathe Self (QC): 6 Upper Body Dressing(FIM): 6 Upper Body Dressing (QC): 6 Lower Body Dressing(FIM): 6 Lower Body Dressing (QC): 6 On/Off Footwear (QC): 6 Toileting(FIM): 6 Toileting Hygiene (QC): 6 Toilet/Commode Transfer(FIM): 6 Toilet/Commode Transfer (QC): 6 Shower Transfer(FIM): 6 Additional Goals: 1-Demonstrate ADL Tasks, 2-Verbalize Understanding, 3- ImproveStrength/Monique 1=Demonstrate adherence to instructed precautions during ADL tasks. 2=Patient will verbalize/demonstrate understanding of assistive devices/ modifications for ADL. 3=Patient will improve strength/tolerance for activity to enable patient to perform ADL's. OT Education/Plan Problem List/Assessment Pt would benefit from skilled OT to increase her independence in basic self care to allow her to safely return home to live with her Discharge Recommendations Plan/Recommendations: Continue POC Treatment Plan/Plan of Care Patient would benefit from OT for education, treatment and training to promote independence in ADL's, mobility, safety and/or upper extremity function for ADL' s. Plan of Care: ADL Retraining, Functional Mobility, Group Exercise/Act as Ind ( educaiton, exercise, activity tolerance, functional activities, memory, socialization), UE Funct Exercise/Act, UE Neuromus Re-Ed/Coord Treatment Duration: Dec 30, 2017 Frequency: At least 5 of 7 days/Wk (IRF) Estimated Hrs Per Day: 1.5 hours per day Agreement: Yes Rehab Potential: Fair Time/GCodes Start Time: 13:30 Stop Time: 14:20 Total Time Billed (hr/min): 50 Billed Treatment Time visit, 30 minutes ADL, 20 minutes exercise RANCHO QUINTANA OT Dec 09, 2017 15:12
--- NOTE | 2017-12-09 15:59 | ST Cognitive Linguistic Eval ---
Speech Evaluation-General Medical Diagnosis critical illness myopathy Onset Date: Dec 02, 2017 Therapy Diagnosis Therapy Diagnosis: Cognition Precautions Precautions/Isolations: Fall Prevention, Standard Precautions Referral Referring Physician: Dr. Calderón Reason for Referral: Evaluation/Treatment Medical History Pertinent Medical History: CAD, DM, Heart Failure, HTN, PVD Reviewed History: Yes Social History Current Living Status: Spouse Speech PLF-Current Status Prior Level of Function Pt was independent Subjective Pt up in chair. Pleasant and cooperative. Pain Numeric Pain Scale: 0-No Pain Language Eval: Auditory Comprehends Simple Yes/No Ques: Functional Follows 1-Step Commands: Functional Follows Complex Directions: Functional Follows General Conversations: Functional Language Eval: Verbal Language Completes Spontaneous Greeting: Functional Produces Auto, Serial Info: Mild Word Finding: Functional Requests Basic Needs: Functional States Basic Personal Info: Functional Expresses Complex Ideas: Functional Language Evaluation: Reading NT Cognitive Patient Orientation Pt oriented x 3. Objective Cognitive Domain Attention: Mild (Counting backwards from 20 to 0, pt stopped and couldn't recall what she was supposed to be doing. Needed reinstruction.) Memory: Mild Problem Solving: Moderate Objective Results [facility] Cognitive/Communication Assessment was administered to assess cognitive -linguistic functioning. Results are: Memory - 3 word recall was 3/3 correct for immediate, 2/3 for delayed and 3/3 for remote delay. Organization/Sequencing was 2/4 correct. Problem Solving - Simple 4/4 correct; Abstract/complex was 1/2 correct and Comparisons was 2/5 correct. Speech/language WNL Oral Motor/Speech Production WNL Impression Mild-moderate cognitive deficits. Speech/language WNL. Communication/Social Cognition Comprehension: 7 Expression: 7 Social Interaction: 7 Problem Solvin Memory: 4 Speech Patient Assess Expression of Ideas/Wants: Exhibits (3) Understanding Verbal Content: Understands (4) Brief Interview-Mental Status: Yes Repetition of Three Words: Three (3) Temporal Orientation: Year: Correct (3) Temporal Orientation: Month: Accurate within 5 days(2) Temporal Orientation: Day: Correct (1) Recall : Wear to say "Sock": Yes, no cue required (2) Recall : Color: Yes, no cue required (2) Recall : Bed: Yes, no cue required (2) Speech Short Term Goals Short Term Goals Short Term Goals Pt will complete problem solving tasks with at least 85% accuracy and min assist. Pt will complete memory activities with at least 80% accuracy and min assist. Time Frame-ST week Comprehension: 7 Expression: 7 Social Interaction: 7 Problem Solvin Memory: 5 Speech Plant Biology Professor Goals Senior Living Goals Pt will demonstrate functional cognition for safety and maximum independence for the home setting. Comprehension: 7 Expression: 7 Social Interaction: 7 Problem Solvin Memory: 6 Speech-Plan Patient/Family Goals Patient/Family Goals: to return home Treatment Plan Speech Therapy Treatment Plan: Modify Plan, See Comments (Skilled ST to address cognitive deficits) Skilled ST indicated. Frequency: 5 times per week Estimated Hrs Per Day: .5 hour per day Rehab Potential: Fair Pt/Family Agrees to Plan: Yes Safety Risks/Education Teaching Recipient: Patient Teaching Methods: Discussion Response to Teaching: Verbalize Understanding Time Speech Therapy Time In: 15:05 Speech Therapy Time Out: 15:35 Total Billed Time: 30 Billed Treatment Time 1, SPSNDCOMP ELIGIO Justin Dec 09, 2017 15:59
[2017-12-09 16:24] VITALS: BP 147/74
[2017-12-09] MEDS: PIPERACILLIN SODIUM/TAZOBACTAM 4.5 GM in NS (IVPB) 100 ML IV SCH (16:38)
[2017-12-09] MEDS: inSUlin ASPART (NovoLOG) 1 UNIT/0.01 ML (CHARGE PER UNIT) SC SCH ×2 (16:51→21:58)
[2017-12-09] MEDS ORDERED: APIXABAN 5 MG (ELIQUIS) TABLET PO SCH (21:00)
[2017-12-09] MEDS ORDERED: NON-FORMULARY MEDICATION 1 EA EA PO SCH (21:00)
[2017-12-09] MEDS: metFORMIN 500 MG (GLUCOPHAGE) TAB PO SCH (21:57)
[2017-12-09] MEDS: SACUBITRIL/VALSARTAN 24/26 MG (ENTRESTO) TABLET PO SCH (21:57)
[2017-12-09] MEDS: diphenhydrAMINE 25 MG TAB (BENADRYL) PO SCH (21:57)
[2017-12-09] MEDS: ACETAMINOPHEN 500 MG TAB (TYLENOL) PO SCH (21:57)
[2017-12-09] MEDS: eZETimibe 10 MG (ZETIA) TABLET PO SCH (21:57)
--- NOTE | 2017-12-09 22:05 | HISTORY AND PHYSICAL ---
DATE OF SERVICE: 12/09/2017 ADMISSION HISTORY AND PHYSICAL CHIEF COMPLAINT: Generalized weakness. HISTORY OF PRESENT ILLNESS: The patient is a 77-year-old female, who had been independent, who was admitted to [facility] via the ED after having hemoptysis. She was found to have pneumonia and bilateral pleural effusion.The patient developed resp.failure and required Intubation and vent support. The patient was started on antibiotics,aaaaand had bronchoscopy and bronchoalveolar lavage. EGD was done by general surgery DR HOLT revealing stage II reflux esophagitis with no ulcerations or strictures, mild gastritis noted. She was weaned from vent starting on 12/06 and transferred to the floor on 12/09. She was left with weakness from this and referred to inpatient rehabilitation unit. She had been independent prior to this. Currently, she is mod assist for transfers and gait and requires assistance for her ADLs.Please see details of current function in PT and OT evals. PAST MEDICAL HISTORY: Coronary artery disease, hypercholesterolemia, hypertension, peripheral vascular disease, valvular heart disease, hiatal hernia, chronic UTI, arthritis, chronic back pain, anxiety and depression. PAST SURGICAL HISTORY: She had bladder surgery, coronary stent, hysterectomy, rotator cuff, bilateral total knee replacements with Dr. Kowalski, bilateral carpal tunnel release, tonsillectomy. ALLERGIES: Intolerance to STATINS. FAMILY HISTORY: Noncontributory. PRIMARY CARE PHYSICIAN: Dr. Nicole. SOCIAL HISTORY: She is and lives in [place], [place]. She takes insulin at home and checks her blood sugars. REVIEW OF SYSTEMS: A 10-point review of systems significant for weakness, arthritic pain in shoulders. MEDICATIONS: Digoxin 0.125 mg p.o. daily, fish oil 1000 mg p.o. daily, aspirin 81 mg p.o. daily, Levemir 20 units subcu daily, Toprol-XL 20 mg p.o. daily, Protonix 40 mg p.o. daily, metformin 750 mg p.o. b.i.d., levothyroxine 50 mcg p.o. daily, Zetia 10 mg p.o. at bedtime, metformin 500 mg p.o. at bedtime, one tablet p.o. b.i.d., Tylenol 500 mg p.o. at bedtime, DuoNeb treatments q.4 hours, gabapentin 600 mg p.o. t.i.d., DuoNeb treatments q.2 hours p.r.n. shortness of breath, Tylenol 650 mg p.o. q.4 hours p.r.n. mild pain, Voltaren gel apply to affected area b.i.d. p.r.n. and Flonase nasal spray 2 sprays b.i.d. p.r.n. allergies, furosemide 40 mg p.o. daily p.r.n. swelling, nitroglycerin 0.4 mg p.r.n. chest pain, K-Dur 20 mEq p.o. daily when taking Lasix. PHYSICAL EXAMINATION: GENERAL: Significant for a pleasant obese female, lying in bed, appearing her stated age, in no acute distress. VITAL SIGNS: She is afebrile, pulse is 68, respiration 14, blood pressure 147/74 and O2 sat 94% on room air. BMI is 34.8. HEENT: Vision, speech, hearing is functional. No oral lesion is noted. NECK: Supple without mass. HEART: Regular rhythm. CHEST: Clear. ABDOMEN: Soft, nontender. Bowel sounds present. EXTREMITIES: Trace edema both ankles, no calf tenderness. MUSCULOSKELETAL: She had some limitation in active range of motion both shoulders, 120 degrees on the right for flexion, abduction, 80 degrees on the left. Strength: Shoulder, 2/5 bilaterally, 3+/5 distally. Sensation is grossly intact to touch. Cognition intact. Right hip flexion is 2/5, knee flexion 4-/5, knee extension 4-/5, dorsiflexion 4/5 on the left, hip flexion 3-/5, knee flexion 4-/5, knee extension 4-/5, dorsiflexion 4/5. IMPRESSION: 1. Critical illness myopathy with associated weakness and a decline in her functional independence due to pneumonia and resp failure. 2. Hypertension, controlled with medication. 3. Valvular heart disease. 4. Chronic urinary tract infections. 5. Arthritis. 6. Chronic back pain. 7. Anxiety. 8. Depression. PLAN: The patient will have a comprehensive program of inpatient rehabilitation with goal of maximizing level of functional independence prior to discharge home with spouse. Her spouse apparently is not in the best of health and he cannot be of much help to assist her at home. The patient will have PT, OT 90 minutes per day each discipline, 5 days a week for 2 weeks with the above goals in mind. Please see post-admission physician evaluation document, which is separate document for details of plan of care. Speech therapy to do cognitive assessment and treat as indicated. Rehabilitation nursing assist with bowel, bladder, skin care, medication administration, pain management. family services specialist to assist with discharge planning, community reentry. Follow up with Dr. Nicole, PCP as per his schedule. Monitor Accu-Cheks and adjust medications and insulin as appropriate. ESTIMATED LENGTH OF STAY: 14 days. PROGNOSIS: Rehab prognosis appears good for a goal of discharging home with spouse, modified independent to supervision for ADLs and mobility skills. DIET: Carb consistent. CODE STATUS: DNR. Job ID: [id number] DocumentID: [id number] Dictated Date: 12/09/2017 21:08:30 After School Coordinator Date: 12/09/2017 22:04:37 Dictated By: JENN NORRIS MD MTDD
[2017-12-10] MEDS: PIPERACILLIN SODIUM/TAZOBACTAM 4.5 GM in NS (IVPB) 100 ML IV SCH ×3 (01:18→16:09)
[2017-12-10] MEDS: RT-ALBUTEROL/IPRATROPIUM 3 ML (DUONEB) VIAL INH SCH ×6 (02:21→22:45)
[2017-12-10 05:21] VITALS: BP 134/70
[2017-12-10] MEDS: inSUlin ASPART (NovoLOG) 1 UNIT/0.01 ML (CHARGE PER UNIT) SC SCH ×4 (05:26→21:04)
[2017-12-10] MEDS: LEVOTHYROXINE 50 MCG (LEVOTHROID) TAB PO SCH (05:27)
[2017-12-10] MEDS: PANTOPRAZOLE 40 MG (PROTONIX) TAB PO SCH (05:27)
[2017-12-10] MEDS: metFORMIN 500 MG (GLUCOPHAGE) TAB PO SCH ×3 (05:27→20:17)
--- NOTE | 2017-12-10 07:42 | PM&R Post Admission Assessment ---
Post Admission Physician Asses Date seen by provider: Dec 10, 2017 Time seen by provider: 07:25 The preadmission screen agrees with the post admission assessment that the patient is a good candidate for inpatient rehabilitation. The patient will have a comprehensive program of inpatient rehabilitation with a goal of maximizing level of functional independence prior to discharge home with family and HHC. The patient will have PT/OT ninety minutes per day, each discipline, five days a week for gait, strengthening, conditioning, balance, ADLs, any patient/family/caregiver training as necessary. Speech therapy to do cognitive assessment and treat as indicated. Rehabilitation nursing to assist with bowel, bladder, skin, wound care, medication administration, pain management. Provider Network Mgr to assist with discharge planning, community reentry. SCD's for DVT prophylaxis. She appears to be well motivated to participate in three hours of therapy a day. She should be able to tolerate three hours of therapy a day from a medical standpoint. She should benefit from the three hours of therapy a day. She has a reasonable discharge plan, reasonable discharge rehabilitation goals and a supportive family. She has various comorbidities that need to be closely monitored with medications and treatments adjusted on a daily basis as needed. These include: CAD PVD Chronic UTIS Anxiety Depression OA Barriers to discharge for this patient who had been independent prior to this are for her to be modified independent to supervision for ADLs and mobility skills prior to discharge home with family and HHC so as to lessen the burden of the caregivers. Risks for this patient include: 1. Fall 2. Fracture 3. DVT 4. Pulmonary embolism 5. Wound infection 6. Skin breakdown 7. Contractures 8. Poorly controlled pain 9. Urinary retention 10. UTI 11. Respiratory infection 12. Aspiration 13. Angina Estimated Length of Stay: 14 days Prognosis: Rehab prognosis appears good for goal of discharge home with family and HHC modified independent to supervision for ADLs and mobility skills. [facility] code 03.3 Etiologic DX Critical illness myopathy Date Identified: Dec 10, 2017 Time Identified: 07:30 Action Plan to Resolve CSMI: Admission meds reviewed General: Alert, Oriented X3, Cooperative, No Acute Distress HEENT: Atraumatic, PERRLA, EOMI, Mucous Memb Moist/[place], Other (02 by N/C in place) Neck: Supple, No JVD Lungs: Clear to Auscultation Heart: Regular Rate Abdomen: Normal Bowel Sounds, Soft, No Tenderness Extremities: Other (trace edema) Neuro: Other (Weakness all 4 limbs sensation intact cognition intact) JENN NORRIS MD Dec 10, 2017 07:42
--- NOTE | 2017-12-10 08:07 | PM & R (SOAP) Progress Note ---
Subjective This was a face to face visit with the patient. Date Seen by Provider: Dec 10, 2017 Time Seen by Provider: 07:45 Subjective/Events-last exam Patient was seen in her room this AM Adjusting well to unit [address] Patient Min assist for gait with WW and min to mod assist for transfers, Date Identified: Dec 10, 2017 Time Identified: 07:30 Medication Intervention: Admission meds and accucheks reviewed Review of Systems Pulmonary: Dyspnea Neurological: Weakness Objective Physician Exam Last Set of Vital Signs Vital Signs Date Time Temp Pulse Resp B/P (MAP) Pulse Ox O2 Delivery O2 Flow Rate FiO2 12/10/17 07:00 90 12/10/17 05:21 98.3 16 134/70 (91) 94 Room Air 12/10/17 02:21 2.00 Capillary Refill : I&O Intake and Output 12/10/17 00:00 Intake Total 550 ml Balance 550 ml Intake Oral 450 ml IV Total 100 ml # Voids 3 Daily Weight Change No General: Alert, Oriented X3, Cooperative, No Acute Distress HEENT: Atraumatic, PERRLA, EOMI, Mucous Memb Moist/[place], Other (02 by N/C in place) Neck: Supple, No JVD Lungs: Clear to Auscultation Heart: Regular Rate Abdomen: Normal Bowel Sounds, Soft, No Tenderness Extremities: Other (trace edema) Neuro: Other (Weakness all 4 limbs sensation intact cognition intact) Results Lab Data Laboratory Tests 12/09/17 20:29: Glucometer 191H 12/10/17 04:15: Glucometer 215H Assessment/Plan Assessment and Plan 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 due to Pneumonia now extubated Anemia with reflux esophagitis s/p EGD DR Alvarado PAF CAD s/p prox LAD stenting Chronic diastolic CHF Cardiology following DM2 HLP with intolerance to statins Hypothroidism on replacement CKD stage 3 OA s/p Bilateral TKRS and rt rotator cuff surgery Valvular HT D with mod MR and Resp insufficiency on supplemental 02 Plan Continue PT/OT/RT F/U with PCP and Cardiology Team Conference next week 12-15-17 Goal return home with family Modified Independent to supervision for addls and Mobility skills Co-Morbidities that are continuing to impact the rehab process: (include details ) JENN NORRIS MD Dec 10, 2017 08:07
[2017-12-10] MEDS ORDERED: meTOprolol SUCCINATE 100 MG (TOPROL XL) TAB PO SCH (09:00)
[2017-12-10] MEDS ORDERED: PRASUGREL 10 MG (EFFIENT) TABLET PO SCH (09:00)
[2017-12-10] MEDS ORDERED: NON-FORMULARY MEDICATION 1 EA EA SC SCH (09:00)
[2017-12-10] MEDS: ASPIRIN 81 MG CHEW (CHILDREN'S ASA) PO SCH (09:02)
[2017-12-10] MEDS: OMEGA 3 (FISH OIL) 1000 MG CAP PO SCH (09:02)
[2017-12-10] MEDS: GABAPENTIN 600 MG (NEURONTIN) TAB PO SCH ×3 (09:03→20:18)
[2017-12-10] MEDS: inSUlin DETERMIR 1 UNIT/0.01 ML (LEVEMIR) CHARGE PER UNIT SQ SCH (09:03)
[2017-12-10] MEDS: DIGOXIN 0.125 MG (LANOXIN) TAB PO SCH (09:03)
[2017-12-10] MEDS: meTOprolol SUCCINATE 100 MG (TOPROL XL) TAB PO SCH (09:03)
[2017-12-10] MEDS: SACUBITRIL/VALSARTAN 24/26 MG (ENTRESTO) TABLET PO SCH ×2 (09:03→20:18)
--- NOTE | 2017-12-10 09:13 | Pulmonary Progress Note ---
Sepsis Event Evaluation Height, Weight, BMI Height: 5'3.00" Weight: 196lbs. 9.6oz. 89.724019pe; 34.8 BMI Method:Stated Exam Exam Vital Signs Date Time Temp Pulse Resp B/P (MAP) Pulse Ox O2 Delivery O2 Flow Rate FiO2 12/10/17 08:19 94 Nasal Cannula 2.00 12/10/17 07:00 90 12/10/17 05:21 98.3 82 16 134/70 (91) 94 Room Air 12/10/17 02:21 92 Nasal Cannula 2.00 12/10/17 01:00 80 12/09/17 22:20 86 Room Air 12/09/17 21:00 Room Air 12/09/17 19:00 76 12/09/17 16:24 97.2 68 14 147/74 (98) 94 Room Air 12/09/17 12:39 94 Room Air I & O 12/10/17 07:00 Intake Total 950 ml Balance 950 ml Height & Weight Height: 5'3.00" Weight: 196lbs. 9.6oz. 89.275182du; 34.8 BMI Method:Stated Assessment/Plan Assessment/Plan Pneumonia r/o early sepsis (no leukocytosis currently Tm is 99.7) -Zosyn Atelectasis -Increase activity as tolerated Pulmonary edema -Hep lock IVF Acute renal failure secondary to Lasix yesterday will hold off Moderate to severe aortic stenosis with probable hemolysis -Cardiology is following Hemoptysis with blood clots - Resolved Anemia PAF hx - Diastolic CHF hx - currently appears stable -Monitor CAD DM II No hx of tobacco use NICOLA MCCLELLAN DO Dec 10, 2017 09:13
--- NOTE | 2017-12-10 09:14 | Progress Note-Cardiology ---
Cardiology SOAP Progress Note Subjective: Generally feels better today Continuing malaise and weakness (generalized0 No cp or palp or syncope or shortness of breath at rest Objective: I&O/Vital Signs 12/09/17 12/10/17 12/10/17 12/10/17 22:20 01:00 02:21 05:21 Temp 98.3 Pulse 80 82 Resp 16 B/P (MAP) 134/70 (91) Pulse Ox 86 92 94 O2 Delivery Room Air Nasal Cannula Room Air O2 Flow Rate 2.00 12/10/17 12/10/17 07:00 08:19 Pulse 90 Pulse Ox 94 O2 Delivery Nasal Cannula O2 Flow Rate 2.00 12/09/17 23:59 Intake Total 550 ml Balance 550 ml Weight (Pounds): 196 Weight (Ounces): 9.6 Weight (Calculated Kilograms): 89.758928 Constitutional: AAO x 3, well-developed, well-nourished Respiratory: No accessory muscle use; other (good bilat air entry) Cardiovascular: regular rate-rhythm, S1 and S2, systolic murmur (3/6 MSM) Gastrointestional: No tender; soft; No guarding, No rebound; audible bowel sounds Extremities: No clubbing, No cyanosis, No significant edema Neurologic/Psychiatric: grossly intact, power is 5/5 both on sides Skin: No rash on exposed areas, No ulcerations on exposed areas Results/Procedures: Labs Laboratory Tests 12/09/17 20:29: Glucometer 191H 12/10/17 04:15: Glucometer 215H A/P: Assessment: Hypertension, now better controll Pneumonia with sepsis - management per Medical and Pulmonary Services Hemoptysis, likely due to pneumonia, now resolved Blood clots in stools, suggestive of GI bleed or swallowed blood from hemoptysis. W/u for this is with the Med Svce Chronic diastolic CHF PAF, first documented on tele strips at Cardiac Rehab in early 2017. Currently in NSR H/o ischemic cm. LVEF on 02/18/17 was 35%. Echo of 12/03/17: LVEF 60-65%, LVH, grade 1 rehman dysfunction, mild to mod MR, mod to severe with valve area approx 1.1 sq cm and gradient approx 25 mmHg, PASP 25 mmHg CAD. S/p prox LAD stenting by Dr Obrien at [facility] on 02/20/17: Promus 2.5x24. Cath on 02/18/17 prior to cor stenting showed dual LAD, one of which was proximally occluded and the other was severely diseased. Rest of the cors had mod dz H/o ischemic cardiomyopathy. MPI of 01/12/17: anteroapical infarction w/o significant ischemia; LVEF 39% Dizziness and vertigo, improved after reduction of anti-htn and Invokana treatment in early Apr 2015. MRI head on 05/10/15 (Dr Mariano) did not show lesions other than possibility of chronic microvascular disease Valvular heart disease. Cath of 02/18/17 showed mod MR and a gradient across AoV of 25-30 mmHg. Mod with valve area 1.4 cm sq and mean gradient across aortic valve of 23 mmHg on echo of 01/08/17. Subsequent echo as noted above DM II CKD stage 3, likely diabetic nephropathy. eGFR on 05/25/17 is 44 Hyperlipidemia, but has intolerance to statins (severe joint pains) Hypothyroidism, treated with thyroid replacement therapy. TSH normal (2.19) on Bilateral leg and foot discomfort which has been diagnosed as neuropathy. Normal bilat EDDY in June 2014 Mild bilat carotid arterial disease on carotid u/s of 06/08/17 Abn ECG. ECG of 05/13/17: NSR, old ASMI H/o surgeries: S/p hysterectomy w/o oophorectomy; S/p bilateral knee replacement ; H/o R rotator cuff surgery Plan: * Continue bb and Entresto * Continue ASA * Add apixaban back in a lower dose, if ok with Med Svce * Monitor labs * Dr Chandra covering the Card DEMARIO Son MD FACP FAC CCDS Dec 10, 2017 09:14
--- NOTE | 2017-12-10 10:43 | Consultation ---
History of Present Illness History of Present Illness Patient Consulted On(summer/time) 12/10/17 10:38 Date Seen by Provider: Dec 10, 2017 Time Seen by Provider: 10:30 Reason for Visit: WEAKNESS AFTER PNEUMONIA AND VENTILATOR History of Present Illness PT REPORTS THAT SHE IS FEELING BETTER TODAY - SHE IS URINATING FREQUENTLY AND HAS SHORTNESS OF BREATH, BUT SHE DENIES CHEST PAIN. PHYSICAL THERAPY REPORTS THAT SHE IS STILL VERY WEAK, SHE DOES NOT HAVE THE ABILITY TO PULL HERSELF UP WITHOUT ASSISTANCE, BUT SHE IS MAKING A LITTLE PROGRESS COMPARED TO YESTERDAY. Allergies and Home Medications Allergies Coded Allergies: canagliflozin (Verified Allergy, Severe, LIGHT HEADED/HEADACHES/UTI/FELT LIKE SHE WOULD PASS OUT, 02/18/17) liraglutide (Verified Allergy, Severe, RAPID HEART RATE/HEADACHE/DIZZINESS , 02/18/17) [place]-Kxs-Lwb Reductase Inhibitor (Verified Adverse Reaction, Severe, MUSCLE PAIN, 02/18/17) Home Medications Acetaminophen 500 Mg Tablet, 500-1,000 MG PO Q4H PRN for PAIN-MILD, (Reported) Acetaminophen/Diphenhydramine 1 Each Tablet, 1 TAB PO HS, (Reported) Apixaban 5 Mg Tablet, 5 MG PO BID, (Reported) Diclofenac Sodium 100 Gm Gel..gram., TP BID PRN for JOINT PAIN, (Reported) Digoxin 250 Mcg Tablet, 125 MCG PO DAILY, (Reported) TAKES 1/2 (250 MCG) TABLET Escitalopram Oxalate 10 Mg Tablet, 10 MG PO DAILY PRN for DEPRESSION, (Reported) Ezetimibe 10 Mg Tablet, 10 MG PO HS, (Reported) Fluticasone Propionate 16 Gm [place].susp, 1 SPRAY NS BID PRN for ALLERGIES, ( Reported) Furosemide 40 Mg Tablet, 40 MG PO DAILY PRN for SWELLING, (Reported) LAST FILLED #30 09-01-17 Gabapentin 600 Mg Tablet, 600 MG PO TID, (Reported) LAST FILLED #270 01-27-17 Insulin Glargine,Hum.rec.anlog 100 Unit/1 Ml Insuln.pen, 20 UNITS SC DAILY, ( Reported) Levothyroxine Sodium 50 Mcg Tablet, 50 MCG PO DAILY, (Reported) Metformin HCl 500 Mg Tablet, 500 MG PO HS, (Reported) Metformin HCl 500 Mg Tablet, 750 MG PO 0700,1200, (Reported) TAKES 1 & 1/2 (500MG) TABLETS Metoprolol Succinate 100 Mg Tab.er.24h, 100 MG PO DAILY, (Reported) Nitroglycerin 0.4 Mg Tab.subl, 0.4 MG SL UD PRN for CHEST PAIN, (Reported) [place] 3 Polyunsat Fatty Acids 1,000 Mg Cap, 1,000 MG PO DAILY, (Reported) Pantoprazole Sodium 40 Mg Tablet.dr, 40 MG PO DAILY, (Reported) Potassium Chloride 20 Meq Tab.er.prt, 20 MEQ PO DAILY PRN for WHEN TAKING FUROSEMIDE, (Reported) Prasugrel HCl 10 Mg Tablet, 10 MG PO DAILY, (Reported) Sacubitril/Valsartan 1 Each Tablet, 1 TAB PO BID, (Reported) Patient Home Medication List Home Medication List Reviewed: Yes Past Pgkmcgs-Lwzlrt-Tyzwha Hx Past Med/Social Hx: Reviewed Nursing Past Med/Soc Hx, Reviewed and Corrections made Patient Social History 2nd Hand Smoke Exposure: No Recent Foreign Travel: No Contact w/Someone Who Travel: No Recent Infectious Disease Expo: No Recent Hopitalizations: No Immunizations Up To Date Tetanus Booster (TDap): Unknown PED Vaccines UTD: No Date of Pneumonia Vaccine: Feb 14, 2017 Date of Influenza Vaccine: Nov 15, 2017 Seasonal Allergies Seasonal Allergies: Yes Past Medical History Surgeries: Yes (bilat TKR, bilat carpal tunnel, R ROTATOR CUFF) Bladder Surgery, Coronary Stent, Hysterectomy, Orthopedic, Tonsillectomy Respiratory: No Currently Using CPAP: No Currently Using BIPAP: No Cardiac: Yes (aortic stenosis, carotid stenosis, cardiac stent) Coronary Artery Disease, High Cholesterol, Hypertension, Peripheral Vascular, Valvular Heart Disease Neurological: Yes Genitourinary: No UTI-Chronic Gastrointestinal: Yes Hiatal Hernia Musculoskeletal: Yes (CARPAL TUNNEL) Arthritis, Chronic Back Pain Endocrine: Yes Diabetes, Non-Insulin dep HEENT: No Loss of Vision: Denies Hearing Impairment: Denies Cancer: No Psychosocial: Yes Anxiety, Depression Integumentary: No Blood Disorders: No Family Medical History Reviewed and Corrections made Cardiovascular disease Congenital heart disease Diabetes mellitus Hypertension Heart Disease, Hypertension Review of Systems-General Constitutional: No chills, No fever; malaise, weakness EENTM: hoarseness, throat pain Respiratory: cough, dyspnea on exertion, short of breath Cardiovascular: No chest pain; edema Gastrointestinal: No abdominal pain, No constipation, No diarrhea, No nausea, No vomiting Genitourinary: frequency Musculoskeletal: muscle weakness Skin: no symptoms reported Psychiatric/Neurological: Denies Anxiety; Depressed All Other Systems Reviewed Negative Unless Noted: Yes Physical Exam-General Problems Physical Exam Vital Signs Vital Signs - First Documented 12/09/17 12/09/17 12/10/17 12:39 16:24 02:21 Temp 97.2 Pulse 68 Resp 14 B/P (MAP) 147/74 (98) Pulse Ox 94 O2 Delivery Room Air O2 Flow Rate 2.00 Capillary Refill : General Appearance: WD/WN, no apparent distress Eyes: Bilateral Eye Normal Inspection, Bilateral Eye PERRL, Bilateral Eye EOMI HEENT: PERRL/EOMI, normal ENT inspection Neck: non-tender, full range of motion, supple Respiratory: chest non-tender, decreased breath sounds Cardiovascular: irregularly irregular Gastrointestinal: normal bowel sounds, non tender, soft, no organomegaly, no pulsatile mass Back: normal inspection Extremities: pedal edema Neurologic/Psychiatric: pedicurist II-XII nml as tested, alert, normal mood/affect, oriented x 3 Skin: warm/dry Lymphatic: no adenopathy Assessment/Plan Assessment/Plan Admission Diagnosis/Plan SEPSIS PNEUMONIA RESPIRATORY DISTRESS HYPERTENSION HEMOPTYSIS DIABETES MELLITUS CORONARY ARTERY DISEASE ATRIAL FIBRILLATION SEPSIS WITH PNEUMONIA AND RESPIRATORY DISTRESS - PT WAS WEANED OFF OF VENT, DOING WELL AND WILL CONTINUE WITH ZOSYN UNTIL 12/12/17. HYPERTENSION - RESUMED HOME MEDICATIONS. HEMOPTYSIS -RESOLVED DIABETES MELLITUS - DOING WELL ON HOME REGIMEN. CORONARY ARTERY DISEASE - DEFER TO DR. LOPEZ AFIB - DEFER TO DR. LOPEZ Admission Status: Inpatient Order (span 2 midnights) Reason for Inpatient Admission: PNEUMONIA AND PT WAS PLACED ON A VENTILATOR FOR 4 DAYS, SHOWING IMPROVEMENT Clinical Quality Measures DVT/VTE Risk/Contraindication: Risk Factor Score Per Nursin RFS Level Per Nursing on Admit: 3=High KURTIS DIEGO MD Dec 10, 2017 10:43
--- NOTE | 2017-12-10 11:00 | Physical Therapy Daily Note ---
PT Daily Note-Current Subjective Pt. agrees to Rx but states she is so fatigued and a little discouraged about hr slow progress and edema. Pt. c/o repeatedly about sore throat and tongue. Dr. Nicole and Dr Burrows visit pt. during rx and order swish and swallow after observing what appears to be thrush on tongue Pain Numeric Pain Scale: 0-No Pain Mental Status Patient Orientation: Normal For Age Attachments: IV Transfers Functional [place] Measure 0=Not Assessed/NA 4=Minimal Assistance 1=Total Assistance 5=Supervision or Setup 2=Maximal Assistance 6=Modified [place] 3=Moderate Assistance 7=Complete IndependenceIRFPAI Quality Coding Scale 6 Independent with activity with or without an assistive device 5 Patient requires set up or clean up by helper. Patient completes activity by themselves 4 Supervision or touching assist (CGA). [place] provide cues , steadying assist 3 The helper provides less than half the effort to complete the activity 2 The helper provides more than half the effort to complete the activity 1 Dependent. The helper does all the effort to complete an activity 7 Patient refused to complete or attempt activity 9 The patient did not perform the activity before the current illness or injury 88 Not attempted due to Medical conditions or safety concerns Transfers (B, C, W/C) (FIM): 3 Scootin Rollin Supine to/from Sit: 3 Sit to/from Stand: 4 Weight Bearing Right Lower Extremity: Right Weight Bearing/Tolerated Left Lower Extremity: Left Weight Bearing/Tolerated Gait Training Does the Patient Walk?: Yes Gait (FIM): 1 Distance (FIM): 1=up to 49 ft (8ftx2) Gait Level of Assist: 4 Gait Persons Needed: 1 Gait Assistive Device: FWW Wheelchair Training Does the Pt Use a Wheelchair?: Yes Wheelchair (FIM): 1 Wheelchair Distance: 1=up to 49 ft (15ftx2) Wheelchair Level of Assist: 3 Type of Wheelchair: Manual Stair Training Stair Training: Handrails/: 2 handrails Stairs (FIM): 5 #of Steps: 4 Stairs: Pattern: Reciprocal Level of Assist: 5 household exception Exercises Standing: Hip Abduction, Heel/toe raises, Marching, Sit to Stand Standing Reps: 15 NuStep Minutes: 13 NuStep Workload: 5 Treatments balance challenges side step left and right and retro all 15 ft no LOB PT Short Term Goals Short Term Goals Time Frame: Dec 16, 2017 Gait (FIM): 1 Gait Distance Comment: 20' Gait Level of Assist: 4 Gait Assistive Device: FWW PT Usp Goals Usp Goals PT Usp Goals Time Frame: Dec 30, 2017 Transfers (B,C,W/C) (FIM): 5 Sit to Lying (QC): 4 Lying-Sitting on Side/Bed(QC): 4 Sit to Stand (QC): 4 Rollin Roll Left to Right (QC): 4 Chair/Lyy-tz-Jxgte Xfer(QC): 4 Car Transfer (QC): 4 Gait (FIM): 2 Distance: 50' Walk 10 feet (QC): 4 Walk 10ft-Uneven Surface(QC): 4 Walk 50ft with 2 Turns (QC): 4 Gait Level of Assist: 5 Gait Assistive Device: FWW Stairs (FIM): 2 # of Steps: 4 1 Step (curb) (QC): 4 4 Steps (QC): 4 Stairs Level Of Assist: 4 PT Plan Treatment/Plan Treatment Plan: Continue Plan of Care Treatment Plan: Bed Mobility, Concurrent Therapy, Education, Functional Activity Monique, Functional Strength, Group Therapy, Gait, Safety, Therapeutic Exercise, Transfers Treatment Duration: Dec 30, 2017 Frequency: At least 5 of 7 days/Wk (IRF) Estimated Hrs Per Day: 1.5 hours per day Patient and/or Family Agrees t: Yes Safety Risks/Education Patient Education: Gait Training, Transfer Techniques, Steps, Correct Positioning, Disease Process, Safety Issues Teaching Recipient: Patient Teaching Methods: Demonstration, Discussion Response to Teaching: Verbalize Understanding, Return Demonstration, Reinforcement Needed Time/GCodes Time In: 900 Time Out: 1000 Total Billed Treatment Time: 60 Total Billed Treatment 1,EX20m,FA40m G Codes Necessary: EVERETT Andujar FUR VAULT ATTENDANT Dec 10, 2017 11:00
--- NOTE | 2017-12-10 14:48 | Physical Therapy Daily Note ---
PT Daily Note-Current Subjective Pt. agrees to Rx, states she is very fatigued but will try. Pain Numeric Pain Scale: 0-No Pain Mental Status Patient Orientation: Normal For Age Attachments: Other-See Comments (EKG), IV Transfers Functional [place] Measure 0=Not Assessed/NA 4=Minimal Assistance 1=Total Assistance 5=Supervision or Setup 2=Maximal Assistance 6=Modified [place] 3=Moderate Assistance 7=Complete IndependenceIRFPAI Quality Coding Scale 6 Independent with activity with or without an assistive device 5 Patient requires set up or clean up by helper. Patient completes activity by themselves 4 Supervision or touching assist (CGA). [place] provide cues , steadying assist 3 The helper provides less than half the effort to complete the activity 2 The helper provides more than half the effort to complete the activity 1 Dependent. The helper does all the effort to complete an activity 7 Patient refused to complete or attempt activity 9 The patient did not perform the activity before the current illness or injury 88 Not attempted due to Medical conditions or safety concerns Transfers (B, C, W/C) (FIM): 4 Scootin Rollin Supine to/from Sit: 4 Sit to/from Stand: 4 moves slowly, needs assist oswald sup to sit Weight Bearing Right Lower Extremity: Right Weight Bearing/Tolerated Left Lower Extremity: Left Weight Bearing/Tolerated Gait Training Does the Patient Walk?: Yes Gait (FIM): 1 Distance (FIM): 1=up to 49 ft (5ftx4) Gait Level of Assist: 3 Gait Persons Needed: 1 Gait Assistive Device: FWW slow, unsure Wheelchair Training Does the Pt Use a Wheelchair?: Yes Wheelchair (FIM): 1 Wheelchair Distance: 1=up to 49 ft (25ftx3) Wheelchair Level of Assist: 3 Type of Wheelchair: Manual needs instruction for all Exercises Supine Ex: Ankle pumps, Quad Set, Rolling, Glut sets, Heel Slides, Short Arc Quads, Scooting, Straight leg raise (ssist), Hip abd/add Supine Reps: 15 Treatments sat EOB several minutes, Lizzie Nicole and Stormy visited pt. during Rx . Pt. expressed sore throat, Dr Burrows told pt. her would order swish and swallow as it appeared she has thrush Assessment Current Status: Good Progress easily fatigued PT Short Term Goals Short Term Goals Time Frame: Dec 16, 2017 Gait (FIM): 1 Gait Distance Comment: 20' Gait Level of Assist: 4 Gait Assistive Device: FWW PT Senior Living Goals Cartridge Filler Goals PT Senior Living Goals Time Frame: Dec 30, 2017 Transfers (B,C,W/C) (FIM): 5 Sit to Lying (QC): 4 Lying-Sitting on Side/Bed(QC): 4 Sit to Stand (QC): 4 Rollin Roll Left to Right (QC): 4 Chair/Ilk-jz-Rqpgs Xfer(QC): 4 Car Transfer (QC): 4 Gait (FIM): 2 Distance: 50' Walk 10 feet (QC): 4 Walk 10ft-Uneven Surface(QC): 4 Walk 50ft with 2 Turns (QC): 4 Gait Level of Assist: 5 Gait Assistive Device: FWW Stairs (FIM): 2 # of Steps: 4 1 Step (curb) (QC): 4 4 Steps (QC): 4 Stairs Level Of Assist: 4 PT Plan Treatment/Plan Treatment Plan: Continue Plan of Care Treatment Plan: Bed Mobility, Concurrent Therapy, Education, Functional Activity Monique, Functional Strength, Group Therapy, Gait, Safety, Therapeutic Exercise, Transfers Treatment Duration: Dec 30, 2017 Frequency: At least 5 of 7 days/Wk (IRF) Estimated Hrs Per Day: 1.5 hours per day Patient and/or Family Agrees t: Yes Safety Risks/Education Patient Education: Gait Training, Transfer Techniques, Correct Positioning, Disease Process, Safety Issues Teaching Recipient: Patient Teaching Methods: Demonstration, Discussion Response to Teaching: Verbalize Understanding, Return Demonstration, Reinforcement Needed Time/GCodes Time In: 900 Time Out: 1000 Total Billed Treatment Time: 60 Total Billed Treatment 1,EX20,FA40 G Codes Necessary: EVERETT Andujar SALES MANAGEMENT TRAINEE Dec 10, 2017 14:48
--- NOTE | 2017-12-10 14:56 | Therapy Group Daily Note ---
Therapy Daily Group Note Patient Education Topic Fall Prevention, Other List Below (Rehab orientation) Exercises LE Seated Exercise, UE Exercise Other/Notes Pt was an active participant in OT/PT group. She introduced herself and shared her favorite thing about jada. She contributed to education/discussion on falls and fall prevention and identified ways to make her environment safer. She also led the group in a seated UE or LE exercise. She came to and from group via w/c with assist, min assist to bed after with all needs met. Start Time: 13:00 Stop Time: 14:15 Total Billed Treatment Time: 75 Total Billed Treatment 1,GRP EVERETT DE ANDA STEEL PLACER Dec 10, 2017 14:56
--- NOTE | 2017-12-10 14:59 | Speech Therapy Daily Note ---
Speech Daily Progress Note Subjective Date Seen by Provider: Dec 10, 2017 Time Seen by Provider: 11:00 Pt in bed. Alert and cooperative. Pain Numeric Pain Scale: 0-No Pain Objective Memory - Picture recall after 20 minutes. Had pt to verbalize out loud what was in the picture to facilitate recall. The pt was 70% accurate. Problem Solving - pt presented 3 cards of familiar activities and pt had to put them in order. Pt was 95% accurate. Assessment Assessment Current Status: Fair Progress Treatment Plan Continue Plan of Care Communication Comprehension: 7 Expression: 7 Social Cognition Social Interaction: 7 Problem Solvin Memory: 4 Speech Short Term Goals Short Term Goals Short Term Goals Pt will complete problem solving tasks with at least 85% accuracy and min assist. Pt will complete memory activities with at least 80% accuracy and min assist. Time Frame-ST week Comprehension: 7 Expression: 7 Social Interaction: 7 Problem Solvin Memory: 5 Speech Staff Mine Warfare Officer Goals Staff Mine Warfare Officer Goals Pt will demonstrate functional cognition for safety and maximum independence for the home setting. Comprehension: 7 Expression: 7 Social Interaction: 7 Problem Solvin Memory: 6 Speech-Plan Patient/Family Goals Patient/Family Goals: to return home Treatment Plan Speech Therapy Treatment Plan: Continue Plan of Care pt cooperative in sp tx Frequency: 5 times per week Estimated Hrs Per Day: .5 hour per day Rehab Potential: Fair Pt/Family Agrees to Plan: Yes Safety Risks/Education Teaching Recipient: Patient Teaching Methods: Discussion Response to Teaching: Verbalize Understanding Time Speech Therapy Time In: 11:00 Speech Therapy Time Out: 11:30 Total Billed Time: 30 Billed Treatment Time 1, SLTS No ELIGIO BLUE Dec 10, 2017 14:59
--- NOTE | 2017-12-10 15:09 | Occupational Ther Daily Note ---
OT Current Status-Daily Note Subjective Pt seen in room, up in bed, agreeable to OT. No pain mentioned. Appearance Alert, cooperative Mental Status/Objective Functional [place] Measure 0=Not Assessed/NA 4=Minimal Assistance 1=Total Assistance 5=Supervision or Setup 2=Maximal Assistance 6=Modified [place] 3=Moderate Assistance 7=Complete [place] ADL-Treatment She was able to move from supine to sitting EOB with SBA. Washed upper body with setup and lower body with SBA, FWW (unable to get to feet). Dressed upper body with setup. Needed help getting pants over feet, socks off/on and pulling pant sup over hips but she stood up with CGA and maintained her balance SBA, FWW. Pt needed help to get both legs into bed and help to be pulled up. Brushed teeth with setup. Pt noted that she did not have shaking while feeding herself this morning and was pleased. Functional [place] Measure 0=Not Assessed/NA 4=Minimal Assistance 1=Total Assistance 5=Supervision or Setup 2=Maximal Assistance 6=Modified [place] 3=Moderate Assistance 7=Complete IndependenceIRFPAI Quality Coding Scale 6 Independent with activity with or without an assistive device 5 Patient requires set up or clean up by helper. Patient completes activity by themselves 4 Supervision or touching assist (CGA). [place] provide cues , steadying assist 3 The helper provides less than half the effort to complete the activity 2 The helper provides more than half the effort to complete the activity 1 Dependent. The helper does all the effort to complete an activity 7 Patient refused to complete or attempt activity 9 The patient did not perform the activity before the current illness or injury 88 Not attempted due to Medical conditions or safety concerns Grooming (FIM): 5 (Brushed teeth, washed face and hands setup) Bathing (FIM): 4 (Sponge bath) Bathing Location: L Arm, R Arm, L Upper Leg, R Upper Leg, Chest, Abdomen, Buttocks, Perineal Area Shower/Bathe Self (QC): 3 Upper Body (FIM): 5 (setup) Upper Body Dressing (QC): 5 Lower Body Dressing (FIM): 2 (Help with socks off/on, pants over feet, pants over hips. Stood up with CGA and balanced with SBA, FWW) Lower Body Dressing (QC): 2 (Help getting pants on over feet, pants on over hips. ) On/Off Footwear (QC): 1 (Help to get slipper socks off/on) Other Treatment Pt did 10 reps bilat UE exercise with no additional resistance, working on shoulders, elbows, forearms, wrists and hands, to strengthen arms to help with ADLs and to help mobilize edema in UEs. Pt left up in bed, 4 rails up, all needs met. Education OT Patient Education: Exercise program, Modified ADL techniques, Progress toward Goal/Update tx plan, Purpose of tx/functional activities Teaching Recipient: Patient Teaching Methods: Demonstration, Discussion Response to Teaching: Verbalize Understanding, Return Demonstration, Reinforcement Needed OT Short Term Goals Short Term Goals Time Frame: Dec 16, 2017 Eating(FIM): 7 Toileting(FIM): 5 Toilet/Commode Transfer(FIM): 5 Comprehension(FIM): 7 Expression(FIM): 7 Social Interaction(FIM): 7 Problem Solving(FIM): 5 Memory(FIM): 5 Additional Short Term Goals: 1-Demonstrate ADL Tasks, 2-Verbalize Understanding , 3-ImproveStrength/Monique 1=Demonstrate adherence to instructed precautions during ADL tasks. 2=Patient will verbalize/demonstrate understanding of assistive devices/ modifications for ADL. 3=Patient will improve strength/tolerance for activity to enable patient to perform ADL's. OT Assistant Spa Manager Goals Assistant Spa Manager Goals Time Frame: Dec 30, 2017 Eating (FIM): 7 Eating (QC): 6 Groomin Oral Hygiene (QC): 6 Bathing(FIM): 6 Shower/Bathe Self (QC): 6 Upper Body Dressing(FIM): 6 Upper Body Dressing (QC): 6 Lower Body Dressing(FIM): 6 Lower Body Dressing (QC): 6 On/Off Footwear (QC): 6 Toileting(FIM): 6 Toileting Hygiene (QC): 6 Toilet/Commode Transfer(FIM): 6 Toilet/Commode Transfer (QC): 6 Shower Transfer(FIM): 6 Comprehension(FIM): 7 Expression (FIM): 7 Social Interaction(FIM): 7 Problem Solving(FIM): 6 Memory(FIM): 6 Additional Goals: 1-Demonstrate ADL Tasks, 2-Verbalize Understanding, 3- ImproveStrength/Monique 1=Demonstrate adherence to instructed precautions during ADL tasks. 2=Patient will verbalize/demonstrate understanding of assistive devices/ modifications for ADL. 3=Patient will improve strength/tolerance for activity to enable patient to perform ADL's. OT Education/Plan Problem List/Assessment Pt would benefit from skilled OT to increase her independence in basic self care to allow her to safely return home to live with her Discharge Recommendations Plan/Recommendations: Continue POC Treatment Plan/Plan of Care Patient would benefit from OT for education, treatment and training to promote independence in ADL's, mobility, safety and/or upper extremity function for ADL' s. Plan of Care: ADL Retraining, Functional Mobility, Group Exercise/Act as Ind ( educaiton, exercise, activity tolerance, functional activities, memory, socialization), UE Funct Exercise/Act, UE Neuromus Re-Ed/Coord Treatment Duration: Dec 30, 2017 Frequency: At least 5 of 7 days/Wk (IRF) Estimated Hrs Per Day: 1.5 hours per day Agreement: Yes Rehab Potential: Fair Time/GCodes Start Time: 10:00 Stop Time: 11:00 Total Time Billed (hr/min): 60 Billed Treatment Time visit, 50 minutes ADL, 10 minutes exercise RANCHO QUINTANA OT Dec 10, 2017 15:09
[2017-12-10] MEDS: NYSTATIN ORAL SUSP 5 ML UDC PO SCH (16:10)
[2017-12-10 17:22] VITALS: BP 125/74
[2017-12-10 19:20] VITALS: BP 137/77
[2017-12-10] MEDS: APIXABAN 2.5 MG (ELIQUIS) TABLET PO SCH (20:17)
[2017-12-10] MEDS: ACETAMINOPHEN 500 MG TAB (TYLENOL) PO SCH (20:18)
[2017-12-10] MEDS: diphenhydrAMINE 25 MG TAB (BENADRYL) PO SCH (20:18)
[2017-12-10] MEDS: eZETimibe 10 MG (ZETIA) TABLET PO SCH (20:18)
[2017-12-11] MEDS: NYSTATIN ORAL SUSP 5 ML UDC PO SCH ×4 (00:18→17:34)
[2017-12-11] MEDS: PIPERACILLIN SODIUM/TAZOBACTAM 4.5 GM in NS (IVPB) 100 ML IV SCH ×3 (00:18→17:34)
[2017-12-11] MEDS: RT-ALBUTEROL/IPRATROPIUM 3 ML (DUONEB) VIAL INH SCH ×6 (03:03→22:39)
[2017-12-11 05:26] LABS: BASOPHILS % (AUTO) 0 % (0-10); EOSINOPHILS # (AUTO) 0.3 10^3/uL (0.0-0.3); EOSINOPHILS % (AUTO) 3 % (0-10); HEMATOCRIT 28 % (35-52); HEMOGLOBIN 8.8 G/DL (11.5-16.0); LYMPHOCYTES # (AUTO) 1.1 X 10^3 (1.0-4.0); LYMPHOCYTES % (AUTO) 12 % (12-44); MEAN CORPUSCULAR HEMOGLOBIN 28 PG (25-34); MEAN CORPUSCULAR HGB CONC 31 G/DL (32-36); MEAN CORPUSCULAR VOLUME 90 FL (80-99); MEAN PLATELET VOLUME 9.7 FL (7.4-10.4); MONOCYTES # (AUTO) 0.4 X 10^3 (0.0-1.0); MONOCYTES % (AUTO) 5 % (0-12); NEUTROPHILS # (AUTO) 7.8 X 10^3 (1.8-7.8); NEUTROPHILS % (AUTO) 81 % (42-75); PLATELET COUNT 387 10^3/uL (130-400); RED BLOOD COUNT 3.14 10^6/uL (4.35-5.85); RED CELL DISTRIBUTION WIDTH 14.8 % (10.0-14.5); WHITE BLOOD COUNT 9.7 10^3/uL (4.3-11.0)
[2017-12-11 05:41] VITALS: BP 134/78
[2017-12-11 05:44] LABS: CALCIUM 7.6 MG/DL (8.5-10.1); CREATININE SERUM 1.05 MG/DL (0.60-1.30); MAGNESIUM 1.8 MG/DL (1.8-2.4); POTASSIUM 3.5 MMOL/L (3.6-5.0)
[2017-12-11] MEDS: inSUlin ASPART (NovoLOG) 1 UNIT/0.01 ML (CHARGE PER UNIT) SC SCH ×4 (05:47→20:22)
[2017-12-11] MEDS: PANTOPRAZOLE 40 MG (PROTONIX) TAB PO SCH (06:04)
[2017-12-11] MEDS: FUROSEMIDE 40 MG (LASIX) TAB PO PRN (06:04)
[2017-12-11] MEDS: KCL 20 MEQ TAB (K-DUR) PO PRN (06:04)
[2017-12-11] MEDS: LEVOTHYROXINE 50 MCG (LEVOTHROID) TAB PO SCH (06:04)
[2017-12-11] MEDS: metFORMIN 500 MG (GLUCOPHAGE) TAB PO SCH ×3 (06:05→20:22)
--- NOTE | 2017-12-11 08:00 | PM & R (SOAP) Progress Note ---
Subjective This was a face to face visit with the patient. Date Seen by Provider: Dec 11, 2017 Time Seen by Provider: 07:25 Subjective/Events-last exam Patient was seen in her room this Am Slipped to floor last night from toilet Has contusion over Rt Forehead but denies Diplopia or Headache.Patient min assist for traaaansfers K low will replace acuucheks noted.Patients spouse bedside Date Identified: Dec 11, 2017 Time Identified: 07:30 Medication Intervention: K supplement Objective Physician Exam Last Set of Vital Signs Vital Signs Date Time Temp Pulse Resp B/P (MAP) Pulse Ox O2 Delivery O2 Flow Rate FiO2 12/11/17 07:00 107 12/11/17 06:32 92 Nasal Cannula 2.00 12/11/17 05:41 97.2 16 134/78 (96) Capillary Refill : I&O Intake and Output 12/11/17 00:00 Intake Total 1500 ml Balance 1500 ml Intake Oral 1400 ml IV Total 100 ml # Voids 3 # Bowel Movements 1 General: Alert, Oriented X3, Cooperative, No Acute Distress HEENT: Atraumatic, PERRLA, EOMI, Mucous Memb Moist/[place], Other (02 by N/C in place) Neck: Supple, No JVD Lungs: Clear to Auscultation Heart: Regular Rate Abdomen: Normal Bowel Sounds, Soft, No Tenderness Extremities: Other (trace edema) Neuro: Other (Weakness all 4 limbs sensation intact cognition intact) Results Lab Data Laboratory Tests 12/09/17 20:29: Glucometer 191H 12/10/17 04:15: Glucometer 215H 12/10/17 09:17: Glucometer 174H 12/10/17 15:56: Glucometer 128H 12/10/17 20:33: Glucometer 136H 12/11/17 05:05: White Blood Count 9.7, Red Blood Count 3.14L, Hemoglobin 8.8L, Hematocrit 28L, Mean Corpuscular Volume 90, Mean Corpuscular Hemoglobin 28, Mean Corpuscular Hemoglobin Concent 31L, Red Cell Distribution Width 14.8H, Platelet Count 387, Mean Platelet Volume 9.7, Neutrophils (%) (Auto) 81H, Lymphocytes (%) (Auto) 12 , Monocytes (%) (Auto) 5, Eosinophils (%) (Auto) 3, Basophils (%) (Auto) 0, Neutrophils # (Auto) 7.8, Lymphocytes # (Auto) 1.1, Monocytes # (Auto) 0.4, Eosinophils # (Auto) 0.3, Basophils # (Auto) 0.0, Sodium Level 143, Potassium Level 3.5L, Chloride Level 109H, Carbon Dioxide Level 23, Anion Gap 11, Blood Urea Nitrogen 16, Creatinine 1.05, Estimat Glomerular Filtration Rate 51, BUN/ Creatinine Ratio 15, Glucose Level 154H, Calcium Level 7.6L, Magnesium Level 1.8 Assessment/Plan Assessment and Plan 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 Pneumonia Fall 12-10-17 with contusion rt forehead PAF Hypokalemia replace CAD s/p prox LAD stenting Chronic diastolic CHF cardiology following DM2 HLP with intolerance to to statin Hypothyroidism on replacement CKD stage 3 OA s/p Bilateral TKRS and rt rotator cuff surgery Valvular HT D with medearte MR and Resp insuff being weaned fro 02 as able Plan Continue PT/OT requested that patient ask for assistance for transfers Replace K Team Conference next week 12-15-17 F/U with DR Dumont PCP Co-Morbidities that are continuing to impact the rehab process: (include details ) JENN NORRIS MD Dec 11, 2017 08:00
[2017-12-11] MEDS ORDERED: KCL 20 MEQ TAB (K-DUR) PO NR (08:15)
[2017-12-11] MEDS: DIGOXIN 0.125 MG (LANOXIN) TAB PO SCH (09:26)
[2017-12-11] MEDS: SACUBITRIL/VALSARTAN 24/26 MG (ENTRESTO) TABLET PO SCH ×2 (09:26→20:22)
[2017-12-11] MEDS: OMEGA 3 (FISH OIL) 1000 MG CAP PO SCH (09:27)
[2017-12-11] MEDS: ASPIRIN 81 MG CHEW (CHILDREN'S ASA) PO SCH (09:27)
[2017-12-11] MEDS: meTOprolol SUCCINATE 100 MG (TOPROL XL) TAB PO SCH (09:27)
[2017-12-11] MEDS: GABAPENTIN 600 MG (NEURONTIN) TAB PO SCH ×3 (09:27→20:21)
[2017-12-11] MEDS: inSUlin DETERMIR 1 UNIT/0.01 ML (LEVEMIR) CHARGE PER UNIT SQ SCH (09:27)
[2017-12-11] MEDS: APIXABAN 2.5 MG (ELIQUIS) TABLET PO SCH ×2 (09:27→20:21)
--- NOTE | 2017-12-11 09:46 | Physical Therapy Daily Note ---
PT Daily Note-Current Subjective Pt. in bed agrees to short rx, states she urgently needs on toilet. States she fell in the bathroom last night. Pain Numeric Pain Scale: 0-No Pain Mental Status Patient Orientation: Person, Place, Time, Situation Attachments: Oxygen Transfers Functional [place] Measure 0=Not Assessed/NA 4=Minimal Assistance 1=Total Assistance 5=Supervision or Setup 2=Maximal Assistance 6=Modified [place] 3=Moderate Assistance 7=Complete IndependenceIRFPAI Quality Coding Scale 6 Independent with activity with or without an assistive device 5 Patient requires set up or clean up by helper. Patient completes activity by themselves 4 Supervision or touching assist (CGA). [place] provide cues , steadying assist 3 The helper provides less than half the effort to complete the activity 2 The helper provides more than half the effort to complete the activity 1 Dependent. The helper does all the effort to complete an activity 7 Patient refused to complete or attempt activity 9 The patient did not perform the activity before the current illness or injury 88 Not attempted due to Medical conditions or safety concerns Transfers (B, C, W/C) (FIM): 4 Scootin Rollin Supine to/from Sit: 4 Sit to/from Stand: 4 Weight Bearing Right Lower Extremity: Right Weight Bearing/Tolerated Left Lower Extremity: Left Weight Bearing/Tolerated Gait Training Does the Patient Walk?: Yes Gait (FIM): 1 Distance (FIM): 1=up to 49 ft (6ftx2) Gait Level of Assist: 4 Gait Persons Needed: 1 Gait Assistive Device: FWW heavy wt bearing on either the FWW or the therapist Exercises Seated Therapy Exercises: Ankle pumps, Sit to stand (x8), Long arc quads, Hip flexion, Hip abd/add Seated Reps: 15 Treatments needed to urinate x 3 during Rx secondary to diuretic use, Rx mainly TRFs SPTs with FWW, short walks sideways Assessment Current Status: Good Progress on O2 at 2 L PT Short Term Goals Short Term Goals Time Frame: Dec 16, 2017 Gait (FIM): 1 Gait Distance Comment: 20' Gait Level of Assist: 4 Gait Assistive Device: FWW PT Reception Agent Goals Senior Living Goals PT Senior Living Goals Time Frame: Dec 30, 2017 Transfers (B,C,W/C) (FIM): 5 Sit to Lying (QC): 4 Lying-Sitting on Side/Bed(QC): 4 Sit to Stand (QC): 4 Rollin Roll Left to Right (QC): 4 Chair/Nkj-nl-Cgxfu Xfer(QC): 4 Car Transfer (QC): 4 Gait (FIM): 2 Distance: 50' Walk 10 feet (QC): 4 Walk 10ft-Uneven Surface(QC): 4 Walk 50ft with 2 Turns (QC): 4 Gait Level of Assist: 5 Gait Assistive Device: FWW Stairs (FIM): 2 # of Steps: 4 1 Step (curb) (QC): 4 4 Steps (QC): 4 Stairs Level Of Assist: 4 PT Plan Treatment/Plan Treatment Plan: Continue Plan of Care Treatment Plan: Bed Mobility, Concurrent Therapy, Education, Functional Activity Monique, Functional Strength, Group Therapy, Gait, Safety, Therapeutic Exercise, Transfers Treatment Duration: Dec 30, 2017 Frequency: At least 5 of 7 days/Wk (IRF) Estimated Hrs Per Day: 1.5 hours per day Patient and/or Family Agrees t: Yes Safety Risks/Education Patient Education: Gait Training, Transfer Techniques, Correct Positioning, Disease Process, Safety Issues Teaching Recipient: Patient Teaching Methods: Demonstration, Discussion Response to Teaching: Verbalize Understanding, Return Demonstration, Reinforcement Needed Time/GCodes Time In: 845 Time Out: 905 Total Billed Treatment Time: 20 Total Billed Treatment 1,FA20m G Codes Necessary: EVERETT Andujar PIGGYBACK CLERK Dec 11, 2017 09:46
--- NOTE | 2017-12-11 10:57 | Cardiology Progress Note ---
Subjective Date Seen by Provider: Dec 11, 2017 Time Seen by Provider: 10:53 Subjective/Events-last exam Patient is in a chair, feeling better, still having some dyspnea and cough Review of Systems General: No Chills, No Night Sweats; Fatigue; No Malaise, No Appetite, No Other HEENT: No Head Aches, No Visual Changes, No Eye Pain, No Ear Pain, No Dysphasia , No Sinus Congestion, No Post Nasal Drip, No Sore Throat, No Other Pulmonary: Dyspnea, Cough; No Pleuritic Chest Pain, No Other Cardiovascular: Edema; No: Chest Pain, Palpitations, Orthopnea, Paroxysmal Noc. Dyspnea, Lt Headedness, Other Objective-Cardiology Exam Last Set of Vital Signs Vital Signs 12/11/17 12/11/17 12/11/17 05:41 07:00 10:39 Temp 97.2 Pulse 107 Resp 16 B/P (MAP) 134/78 (96) Pulse Ox 99 O2 Delivery Nasal Cannula O2 Flow Rate 2.00 Capillary Refill : I&O Intake and Output 12/11/17 00:00 Intake Total 1500 ml Balance 1500 ml Intake Oral 1400 ml IV Total 100 ml # Voids 3 # Bowel Movements 1 General: Alert, Oriented X3, Cooperative, No Acute Distress HEENT: Atraumatic, PERRLA, EOMI, Mucous Memb Moist/[place], Other (02 by N/C in place) Neck: Supple, No JVD Lungs: Clear to Auscultation Heart: Regular Rate, Normal S1, Normal S2 Abdomen: Normal Bowel Sounds, Soft, No Tenderness Extremities: Other (+ 2 edema) Results Lab Laboratory Tests 12/11/17 05:05 A/P-Cardiology Admission Diagnosis Anemia Edema Pneumonia Hypertension Assessment/Plan Anemia, continue to monitor H&H Peripheral edema, received lasix this morning, continue to monitor Hypokalemia, being replaced Hypertension, continue to monitor Pneumonia with sepsis - management per Medical and Pulmonary Services Hemoptysis, likely due to pneumonia, now resolved Blood clots in stools, suggestive of GI bleed or swallowed blood from hemoptysis. W/u for this is with the Med Svce Chronic diastolic CHF PAF, first documented on tele strips at [facility] in early 2016. Currently in NSR H/o ischemic cm. LVEF on 02/18/17 was 35%. Echo of 12/03/17: LVEF 60-65%, LVH, grade 1 rehman dysfunction, mild to mod MR, mod to severe with valve area approx 1.1 sq cm and gradient approx 25 mmHg, PASP 25 mmHg CAD. S/p prox LAD stenting by Dr Obrien at [facility] on 02/20/17: Promus 2.5x24. Cath on 02/18/17 prior to cor stenting showed dual LAD, one of which was proximally occluded and the other was severely diseased. Rest of the cors had mod dz H/o ischemic cardiomyopathy. MPI of 01/12/17: anteroapical infarction w/o significant ischemia; LVEF 39% Dizziness and vertigo, improved after reduction of anti-htn and Invokana treatment in early Apr 2015. MRI head on 05/10/15 (Dr Mariano) did not show lesions other than possibility of chronic microvascular disease Valvular heart disease. Cath of 02/18/17 showed mod MR and a gradient across AoV of 25-30 mmHg. Mod with valve area 1.4 cm sq and mean gradient across aortic valve of 23 mmHg on echo of 01/08/17. Subsequent echo as noted above DM II CKD stage 3, likely diabetic nephropathy. eGFR on 05/25/17 is 44 Hyperlipidemia, but has intolerance to statins (severe joint pains) Hypothyroidism, treated with thyroid replacement therapy. TSH normal (2.19) on Bilateral leg and foot discomfort which has been diagnosed as neuropathy. Normal bilat EDDY in June 2014 Mild bilat carotid arterial disease on carotid u/s of 06/08/17 Abn ECG. ECG of 05/13/17: NSR, old ASMI H/o surgeries: S/p hysterectomy w/o oophorectomy; S/p bilateral knee replacement ; H/o R rotator cuff surgery Clinical Quality Measures DVT/VTE Risk/Contraindication: Risk Factor Score Per Nursin RFS Level Per Nursing on Admit: 3=High KATIE COLEMAN MD Dec 11, 2017 10:57
[2017-12-11 16:25] VITALS: BP 116/72
[2017-12-11] MEDS: ACETAMINOPHEN 500 MG TAB (TYLENOL) PO SCH (20:22)
[2017-12-11] MEDS: diphenhydrAMINE 25 MG TAB (BENADRYL) PO SCH (20:22)
[2017-12-11] MEDS: eZETimibe 10 MG (ZETIA) TABLET PO SCH (20:22)
[2017-12-12] MEDS: PIPERACILLIN SODIUM/TAZOBACTAM 4.5 GM in NS (IVPB) 100 ML IV SCH ×2 (00:13→09:19)
[2017-12-12] MEDS: NYSTATIN ORAL SUSP 5 ML UDC PO SCH ×5 (00:13→23:57)
[2017-12-12] MEDS: RT-ALBUTEROL/IPRATROPIUM 3 ML (DUONEB) VIAL INH SCH ×6 (02:36→22:09)
[2017-12-12 05:42] LABS: MEAN PLATELET VOLUME 9.4 FL (7.4-10.4); RED BLOOD COUNT 2.06 10^6/uL (4.35-5.85); RED CELL DISTRIBUTION WIDTH 14.7 % (10.0-14.5); WHITE BLOOD COUNT 6.1 10^3/uL (4.3-11.0)
[2017-12-12 06:00] LABS: BUN/CREATININE RATIO 13; CARBON DIOXIDE 17 MMOL/L (21-32); CHLORIDE 122 MMOL/L (98-107); CREATININE SERUM 0.68 MG/DL (0.60-1.30); GFR ESTIMATED > 60; GLUCOSE 98 MG/DL (70-105); SODIUM 145 MMOL/L (135-145)
[2017-12-12 06:10] VITALS: BP 136/76
[2017-12-12 06:16] LABS: POTASSIUM 2.5 MMOL/L (3.6-5.0)
[2017-12-12] MEDS ORDERED: POTASSIUM CL 10MEQ/50ML IVPB 50 ML IV ONE ×6 (06:30→11:30)
[2017-12-12] MEDS: metFORMIN 500 MG (GLUCOPHAGE) TAB PO SCH ×3 (06:36→21:18)
[2017-12-12] MEDS: inSUlin ASPART (NovoLOG) 1 UNIT/0.01 ML (CHARGE PER UNIT) SC SCH ×4 (06:37→21:14)
[2017-12-12] MEDS: LEVOTHYROXINE 50 MCG (LEVOTHROID) TAB PO SCH (06:37)
[2017-12-12] MEDS: PANTOPRAZOLE 40 MG (PROTONIX) TAB PO SCH (06:37)
[2017-12-12] MEDS ORDERED: POTASSIUM CL 10 MEQ/50 ML IVPB (PRE-MIX) IV SCH (07:15)
--- NOTE | 2017-12-12 08:50 | Cardiology Progress Note ---
Subjective Date Seen by Provider: Dec 12, 2017 Time Seen by Provider: 08:49 Subjective/Events-last exam Patient is in a chair, feeling better, no new complaint Review of Systems General: No Chills, No Night Sweats, No Fatigue, No Malaise, No Appetite, No Other HEENT: No Head Aches, No Visual Changes, No Eye Pain, No Ear Pain, No Dysphasia , No Sinus Congestion, No Post Nasal Drip, No Sore Throat, No Other Pulmonary: No Dyspnea, No Cough, No Pleuritic Chest Pain, No Other Cardiovascular: Edema; No: Chest Pain, Palpitations, Orthopnea, Paroxysmal Noc. Dyspnea, Lt Headedness, Other Objective-Cardiology Exam Last Set of Vital Signs Vital Signs 12/12/17 12/12/17 12/12/17 06:10 06:55 07:00 Temp 99.0 Pulse 89 Resp 16 B/P (MAP) 136/76 (96) Pulse Ox 92 O2 Delivery Nasal Cannula O2 Flow Rate 1.00 Capillary Refill : I&O Intake and Output 12/11/17 23:59 Intake Total 1990 ml Balance 1990 ml Intake Oral 1690 ml IV Total 300 ml # Voids 12 # Bowel Movements 1 General: Alert, Oriented X3, Cooperative, No Acute Distress HEENT: Atraumatic, PERRLA, EOMI, Mucous Memb Moist/[place], Other (02 by N/C in place) Neck: Supple, No JVD Lungs: Clear to Auscultation Heart: Regular Rate, Normal S1, Normal S2 Abdomen: Normal Bowel Sounds, Soft, No Tenderness Extremities: Other (+ 2 edema) Neuro: Normal Gait, Normal Speech Results Lab Laboratory Tests 12/12/17 05:30 A/P-Cardiology Admission Diagnosis Anemia Edema Pneumonia Hypertension Assessment/Plan Anemia, I am repeating labs Hypokalemia, Hypomagnesemia. Repeat labs Peripheral edema, improving, continue to monitor Hypokalemia, being replaced Hypertension, continue to monitor Pneumonia with sepsis - management per Medical and Pulmonary Services Hemoptysis, likely due to pneumonia, now resolved Blood clots in stools, suggestive of GI bleed or swallowed blood from hemoptysis. W/u for this is with the Med Svce Chronic diastolic CHF PAF, first documented on tele strips at [facility] in early 2016. Currently in NSR H/o ischemic cm. LVEF on 02/18/17 was 35%. Echo of 12/03/17: LVEF 60-65%, LVH, grade 1 rehman dysfunction, mild to mod MR, mod to severe with valve area approx 1.1 sq cm and gradient approx 25 mmHg, PASP 25 mmHg CAD. S/p prox LAD stenting by Dr Obrien at [facility] on 02/20/17: Promus 2.5x24. Cath on 02/18/17 prior to cor stenting showed dual LAD, one of which was proximally occluded and the other was severely diseased. Rest of the cors had mod dz H/o ischemic cardiomyopathy. MPI of 01/12/17: anteroapical infarction w/o significant ischemia; LVEF 39% Dizziness and vertigo, improved after reduction of anti-htn and Invokana treatment in early Apr 2015. MRI head on 05/10/15 (Dr Mariano) did not show lesions other than possibility of chronic microvascular disease Valvular heart disease. Cath of 02/18/17 showed mod MR and a gradient across AoV of 25-30 mmHg. Mod with valve area 1.4 cm sq and mean gradient across aortic valve of 23 mmHg on echo of 01/08/17. Subsequent echo as noted above DM II CKD stage 3, likely diabetic nephropathy. eGFR on 05/25/17 is 44 Hyperlipidemia, but has intolerance to statins (severe joint pains) Hypothyroidism, treated with thyroid replacement therapy. TSH normal (2.19) on Bilateral leg and foot discomfort which has been diagnosed as neuropathy. Normal bilat EDDY in June 2014 Mild bilat carotid arterial disease on carotid u/s of 06/08/17 Abn ECG. ECG of 05/13/17: NSR, old ASMI H/o surgeries: S/p hysterectomy w/o oophorectomy; S/p bilateral knee replacement ; H/o R rotator cuff surgery Clinical Quality Measures DVT/VTE Risk/Contraindication: Risk Factor Score Per Nursin RFS Level Per Nursing on Admit: 3=High KATIE COLEMAN MD Dec 12, 2017 08:50
[2017-12-12 09:01] LABS: HEMOGLOBIN 8.9 G/DL (11.5-16.0); MEAN PLATELET VOLUME 9.6 FL (7.4-10.4); RED BLOOD COUNT 3.08 10^6/uL (4.35-5.85); RED CELL DISTRIBUTION WIDTH 14.9 % (10.0-14.5); WHITE BLOOD COUNT 8.5 10^3/uL (4.3-11.0)
[2017-12-12 09:21] LABS: CALCIUM 8.1 MG/DL (8.5-10.1); CREATININE SERUM 1.24 MG/DL (0.60-1.30); MAGNESIUM 1.7 MG/DL (1.8-2.4); POTASSIUM 4.4 MMOL/L (3.6-5.0)
[2017-12-12] MEDS: OMEGA 3 (FISH OIL) 1000 MG CAP PO SCH (09:26)
[2017-12-12] MEDS: GABAPENTIN 600 MG (NEURONTIN) TAB PO SCH ×3 (09:26→21:19)
[2017-12-12] MEDS: ASPIRIN 81 MG CHEW (CHILDREN'S ASA) PO SCH (09:26)
[2017-12-12] MEDS: inSUlin DETERMIR 1 UNIT/0.01 ML (LEVEMIR) CHARGE PER UNIT SQ SCH (09:26)
[2017-12-12] MEDS: meTOprolol SUCCINATE 100 MG (TOPROL XL) TAB PO SCH (09:26)
[2017-12-12] MEDS: DIGOXIN 0.125 MG (LANOXIN) TAB PO SCH (09:26)
[2017-12-12] MEDS: SACUBITRIL/VALSARTAN 24/26 MG (ENTRESTO) TABLET PO SCH ×2 (09:26→21:16)
[2017-12-12] MEDS ORDERED: FUROSEMIDE 40 MG/4 ML INJ (LASIX) IVP ONE (09:45)
[2017-12-12] MEDS: APIXABAN 2.5 MG (ELIQUIS) TABLET PO SCH ×2 (10:19→21:19)
[2017-12-12] MEDS: MAGNESIUM OXIDE (MAG-OX)400 MG TAB PO SCH ×2 (10:19→17:06)
[2017-12-12 15:45] VITALS: BP 117/69
[2017-12-12 21:15] VITALS: BP 144/76
[2017-12-12] MEDS: diphenhydrAMINE 25 MG TAB (BENADRYL) PO SCH (21:15)
[2017-12-12] MEDS: ACETAMINOPHEN 500 MG TAB (TYLENOL) PO SCH (21:16)
[2017-12-12] MEDS: eZETimibe 10 MG (ZETIA) TABLET PO SCH (21:19)
[2017-12-13] MEDS: RT-ALBUTEROL/IPRATROPIUM 3 ML (DUONEB) VIAL INH SCH ×6 (02:08→19:51)
[2017-12-13 04:48] LABS: HEMOGLOBIN 8.5 G/DL (11.5-16.0); MEAN PLATELET VOLUME 9.5 FL (7.4-10.4); RED BLOOD COUNT 3.04 10^6/uL (4.35-5.85); RED CELL DISTRIBUTION WIDTH 15.1 % (10.0-14.5); WHITE BLOOD COUNT 7.6 10^3/uL (4.3-11.0)
[2017-12-13 05:07] LABS: BILIRUBIN,TOTAL 0.4 MG/DL (0.1-1.0); CALCIUM 8.3 MG/DL (8.5-10.1); CREATININE SERUM 1.03 MG/DL (0.60-1.30); MAGNESIUM 1.7 MG/DL (1.8-2.4); POTASSIUM 3.8 MMOL/L (3.6-5.0); TOTAL PROTEIN 5.2 GM/DL (6.4-8.2)
[2017-12-13 05:56] VITALS: BP 152/79
[2017-12-13] MEDS: inSUlin ASPART (NovoLOG) 1 UNIT/0.01 ML (CHARGE PER UNIT) SC SCH ×4 (06:00→20:58)
[2017-12-13] MEDS: LEVOTHYROXINE 50 MCG (LEVOTHROID) TAB PO SCH (06:17)
[2017-12-13] MEDS: NYSTATIN ORAL SUSP 5 ML UDC PO SCH ×3 (06:17→17:17)
[2017-12-13] MEDS: metFORMIN 500 MG (GLUCOPHAGE) TAB PO SCH ×3 (06:18→20:39)
[2017-12-13] MEDS: PANTOPRAZOLE 40 MG (PROTONIX) TAB PO SCH (06:18)
[2017-12-13] MEDS: SACUBITRIL/VALSARTAN 24/26 MG (ENTRESTO) TABLET PO SCH ×2 (08:00→20:56)
[2017-12-13] MEDS: OMEGA 3 (FISH OIL) 1000 MG CAP PO SCH (08:00)
[2017-12-13] MEDS: APIXABAN 2.5 MG (ELIQUIS) TABLET PO SCH ×2 (08:00→20:39)
[2017-12-13] MEDS: meTOprolol SUCCINATE 100 MG (TOPROL XL) TAB PO SCH (08:00)
[2017-12-13] MEDS: ASPIRIN 81 MG CHEW (CHILDREN'S ASA) PO SCH (08:00)
[2017-12-13] MEDS: MAGNESIUM OXIDE (MAG-OX)400 MG TAB PO SCH ×2 (08:00→17:17)
[2017-12-13] MEDS: DIGOXIN 0.125 MG (LANOXIN) TAB PO SCH (08:00)
[2017-12-13] MEDS: GABAPENTIN 600 MG (NEURONTIN) TAB PO SCH ×3 (08:00→20:39)
[2017-12-13] MEDS: inSUlin DETERMIR 1 UNIT/0.01 ML (LEVEMIR) CHARGE PER UNIT SQ SCH (08:02)
--- NOTE | 2017-12-13 09:02 | Cardiology Progress Note ---
Subjective Date Seen by Provider: Dec 13, 2017 Time Seen by Provider: 09:00 Subjective/Events-last exam Patient is feeling better. Sitting in a chair, no new complaint. Review of Systems General: No Chills, No Night Sweats; Fatigue; No Malaise, No Appetite, No Other HEENT: No Head Aches, No Visual Changes, No Eye Pain, No Ear Pain, No Dysphasia , No Sinus Congestion, No Post Nasal Drip, No Sore Throat, No Other Pulmonary: No Dyspnea, No Cough, No Pleuritic Chest Pain, No Other Cardiovascular: No: Chest Pain, Palpitations, Orthopnea, Paroxysmal Noc. Dyspnea, Edema, Lt Headedness, Other Objective-Cardiology Exam Last Set of Vital Signs Vital Signs 12/13/17 12/13/17 12/13/17 05:56 06:42 07:00 Temp 98.8 Pulse 97 Resp 19 B/P (MAP) 152/79 (103) Pulse Ox 93 O2 Delivery Room Air O2 Flow Rate 1.00 Capillary Refill : I&O Intake and Output 12/13/17 00:00 Intake Total 1465 ml Balance 1465 ml Intake Oral 1340 ml IV Total 125 ml # Voids 12 # Bowel Movements 2 General: Alert, Oriented X3, Cooperative, No Acute Distress HEENT: Atraumatic, PERRLA, EOMI, Mucous Memb Moist/[place], Other (02 by N/C in place) Neck: Supple, No JVD Lungs: Clear to Auscultation Heart: Regular Rate, Normal S1, Normal S2 Abdomen: Normal Bowel Sounds, Soft, No Tenderness Extremities: No Clubbing, No Cyanosis, Other (+ 2 edema) Skin: No Rashes, No Breakdown Neuro: Normal Gait, Normal Speech Psych/Mental Status: Mental Status NL Results Lab Laboratory Tests 12/13/17 04:40 A/P-Cardiology Admission Diagnosis Anemia Edema Pneumonia Hypertension Assessment/Plan Peripheral edema, improving, continue to monitor Hypertension, continue current medication monitor blood pressure Pneumonia with sepsis - management per Medical and Pulmonary Services Hemoptysis, likely due to pneumonia, now resolved Blood clots in stools, suggestive of GI bleed or swallowed blood from hemoptysis. W/u for this is with the Med Svce Chronic diastolic CHF PAF, first documented on tele strips at [facility] in early 2016. Currently in NSR H/o ischemic cm. LVEF on 02/18/17 was 35%. Echo of 12/03/17: LVEF 60-65%, LVH, grade 1 rehman dysfunction, mild to mod MR, mod to severe with valve area approx 1.1 sq cm and gradient approx 25 mmHg, PASP 25 mmHg CAD. S/p prox LAD stenting by Dr Obrien at [facility] on 02/20/17: Promus 2.5x24. Cath on 02/18/17 prior to cor stenting showed dual LAD, one of which was proximally occluded and the other was severely diseased. Rest of the cors had mod dz H/o ischemic cardiomyopathy. MPI of 01/12/17: anteroapical infarction w/o significant ischemia; LVEF 39% Dizziness and vertigo, improved after reduction of anti-htn and Invokana treatment in early Apr 2015. MRI head on 05/10/15 (Dr Mariano) did not show lesions other than possibility of chronic microvascular disease Valvular heart disease. Cath of 02/18/17 showed mod MR and a gradient across AoV of 25-30 mmHg. Mod with valve area 1.4 cm sq and mean gradient across aortic valve of 23 mmHg on echo of 01/08/17. Subsequent echo as noted above DM II CKD stage 3, likely diabetic nephropathy. eGFR on 05/25/17 is 44 Hyperlipidemia, but has intolerance to statins (severe joint pains) Hypothyroidism, treated with thyroid replacement therapy. TSH normal (2.19) on Bilateral leg and foot discomfort which has been diagnosed as neuropathy. Normal bilat EDDY in June 2014 Mild bilat carotid arterial disease on carotid u/s of 06/08/17 Abn ECG. ECG of 05/13/17: NSR, old ASMI H/o surgeries: S/p hysterectomy w/o oophorectomy; S/p bilateral knee replacement ; H/o R rotator cuff surgery Clinical Quality Measures DVT/VTE Risk/Contraindication: Risk Factor Score Per Nursin RFS Level Per Nursing on Admit: 3=High KATIE COLEMAN MD Dec 13, 2017 09:02
--- NOTE | 2017-12-13 09:25 | Progress Note ---
Subjective Date Seen by a Provider: Dec 13, 2017 Time Seen by a Provider: 08:45 Subjective/Events-last exam PT REPORTS THAT SHE IS FEELING BETTER, SHE IS LESS SHORT OF BREATH TODAY WHEN COMPARED TO WEDNESDAY. SHE REPORTS THAT HER THROAT IS STILL SCRATCHY, BUT IT IS BETTER WITH THE SPRAY. SHE HAD A FALL OVER THE WEEKEND - SHE IS UNSURE WHAT HAPPENED, SHE WAS GOING TO THE RESTROOM INDEPENDENTLY, THEN FELL OFF OF THE TOILET. Review of Systems General: Fatigue, Malaise HEENT: No Head Aches; Sore Throat Pulmonary: Dyspnea, Cough Gastrointestinal: No: Nausea, Abdominal Pain, Diarrhea, Constipation Genitourinary: No Dysuria; Frequency Neurological: Weakness; No: Confusion Objective Exam Last Set of Vital Signs Vital Signs Date Time Temp Pulse Resp B/P (MAP) Pulse Ox O2 Delivery O2 Flow Rate FiO2 12/13/17 07:00 97 12/13/17 06:42 93 Room Air 12/13/17 05:56 98.8 19 152/79 (103) 1.00 Capillary Refill : I&O Intake and Output 12/13/17 00:00 Intake Total 1465 ml Balance 1465 ml Intake Oral 1340 ml IV Total 125 ml # Voids 12 # Bowel Movements 2 General: Alert, Oriented X3, Cooperative, No Acute Distress HEENT: Atraumatic, PERRLA, EOMI, Mucous Memb Moist/[place], Other (02 by N/C in place) Neck: Supple, No JVD Lungs: Other (IMPROVED AIR MOVEMENT THROUGHOUT ) Heart: Regular Rate, Normal S1, Normal S2, Other (II/ [place]) Abdomen: Normal Bowel Sounds, Soft, No Tenderness Extremities: No Clubbing, Other (+ 2 edema) Skin: No Rashes Neuro: Normal Gait, Normal Speech Psych/Mental Status: Mental Status NL Results Lab Laboratory Tests 12/12/17 11:33: Glucometer 243H 12/12/17 15:44: Glucometer 94 12/12/17 20:16: Glucometer 230H 12/13/17 04:40: White Blood Count 7.6, Red Blood Count 3.04L, Hemoglobin 8.5L, Hematocrit 28L, Mean Corpuscular Volume 91, Mean Corpuscular Hemoglobin 28, Mean Corpuscular Hemoglobin Concent 31L, Red Cell Distribution Width 15.1H, Platelet Count 336, Mean Platelet Volume 9.5, Sodium Level 140, Potassium Level 3.8, Chloride Level 104, Carbon Dioxide Level 27, Anion Gap 9, Blood Urea Nitrogen 11, Creatinine 1.03, Estimat Glomerular Filtration Rate 52, BUN/Creatinine Ratio 11, Glucose Level 87, Calcium Level 8.3L, Corrected Calcium 9.1, Magnesium Level 1.7L, Total Bilirubin 0.4, Aspartate Amino Transf (AST/SGOT) 17, Alanine Aminotransferase (ALT/SGPT) 16, Alkaline Phosphatase 37L, Total Protein 5.2L, Albumin 3.0L Assessment/Plan Assessment/Plan Assess & Plan/Chief Complaint SEPSIS PNEUMONIA RESPIRATORY DISTRESS HYPERTENSION HEMOPTYSIS DIABETES MELLITUS CORONARY ARTERY DISEASE ATRIAL FIBRILLATION ANEMIA EDEMA SEPSIS WITH PNEUMONIA AND RESPIRATORY DISTRESS - PT NOW OFF OF OXYGEN DOING WELL - CONTINUE TO CLOSELY MONITOR FOR RETURN OF SHORTNESS OF BREATH OR WORSENING DYSPNEA ON EXERTION. HYPERTENSION - RESUMED HOME MEDICATIONS. - BLOOD PRESSURE STABLE. HEMOPTYSIS -RESOLVED DIABETES MELLITUS - DOING WELL ON HOME REGIMEN. CORONARY ARTERY DISEASE - DEFER TO DR. LOPEZ AFIB - DEFER TO DR. LOPEZ ANEMIA - STABLE - CHECK IRON PANEL, MAY BENEFIT FROM IV IRON. WEAKNESS - PT TO CONTINUE WITH THERAPY SHE IS STILL PRETTY WEAK FROM HER PROLONGED HOSPITALIZATION. EDEMA - CONTINUE WITH LASIX - START COMPRESSION SOCKS TODAY. Clinical Quality Measures DVT/VTE Risk/Contraindication: Risk Factor Score Per Nursin RFS Level Per Nursing on Admit: 3=High KURTIS DIEGO MD Dec 13, 2017 09:25
--- NOTE | 2017-12-13 09:28 | Occupational Ther Daily Note ---
OT Current Status-Daily Note Subjective Pt seen in room, up in recliner, agreeable to OT. No pain mentioned. Appearance Alert, cooperative Mental Status/Objective Functional [place] Measure 0=Not Assessed/NA 4=Minimal Assistance 1=Total Assistance 5=Supervision or Setup 2=Maximal Assistance 6=Modified [place] 3=Moderate Assistance 7=Complete [place] ADL-Treatment Pt wanted to shower. her O2 was in place but set at 0. O2 sat 96%. Nursing said Ok to shower without O2. O2 sat after showering and dressing 96% on room air. IV site covered. Pt got up from recliner without help and walked with SBA to bathroom. On/off tall toilet without help, using grab bar and FWW (skilled cues to not pull up from walker). In/out of shower with SBA, grab bar, FWW and used shower bench to bathe SBA. Pt undressed and dressed with SBA except she was unable to get slipper socks back on due to fatigue and difficulty with prolonged leaning forward. She stopped at the sink to brush her teeth and comb her hair, with SBA, FWW. She walked back to recliner with SBA, FWW and was left up in chair, alarm on, all needs met. Functional [place] Measure 0=Not Assessed/NA 4=Minimal Assistance 1=Total Assistance 5=Supervision or Setup 2=Maximal Assistance 6=Modified [place] 3=Moderate Assistance 7=Complete IndependenceIRFPAI Quality Coding Scale 6 Independent with activity with or without an assistive device 5 Patient requires set up or clean up by helper. Patient completes activity by themselves 4 Supervision or touching assist (CGA). [place] provide cues , steadying assist 3 The helper provides less than half the effort to complete the activity 2 The helper provides more than half the effort to complete the activity 1 Dependent. The helper does all the effort to complete an activity 7 Patient refused to complete or attempt activity 9 The patient did not perform the activity before the current illness or injury 88 Not attempted due to Medical conditions or safety concerns Grooming (FIM): 5 (SBA at sink, FWW) Bathing (FIM): 5 (Washed and dried all parts with SBA for standing, FWW, grab bar, hand held shower. ) Bathing Location: L Arm, R Arm, L Upper Leg, R Upper Leg, L Lower Leg ( including foot), R Lower Leg (including foot), Chest, Abdomen, Buttocks, Perineal Area Upper Body (FIM): 5 (SBA) Lower Body Dressing (FIM): 4 (SBA for standing but help to put slipper socks on. FWW) Toileting (FIM): 5 (SBA, tall toilet, grab bar, FWW. Managed clothing and hygiene) Toilet/Commode Transfer (FIM): 5 (SBA getting on/off tall toilet, grab bars, FWW) Education OT Patient Education: Modified ADL techniques, Progress toward Goal/Update tx plan, Purpose of tx/functional activities, Transfer techniques Teaching Recipient: Patient Teaching Methods: Demonstration, Discussion Response to Teaching: Verbalize Understanding, Return Demonstration OT Short Term Goals Short Term Goals Time Frame: Dec 16, 2017 Eating(FIM): 7 Toileting(FIM): 5 Toilet/Commode Transfer(FIM): 5 Comprehension(FIM): 7 Expression(FIM): 7 Social Interaction(FIM): 7 Problem Solving(FIM): 5 Memory(FIM): 5 Additional Short Term Goals: 1-Demonstrate ADL Tasks, 2-Verbalize Understanding , 3-ImproveStrength/Monique 1=Demonstrate adherence to instructed precautions during ADL tasks. 2=Patient will verbalize/demonstrate understanding of assistive devices/ modifications for ADL. 3=Patient will improve strength/tolerance for activity to enable patient to perform ADL's. OT Election Assistant Goals Jail Goals Time Frame: Dec 30, 2017 Eating (FIM): 7 Eating (QC): 6 Groomin Oral Hygiene (QC): 6 Bathing(FIM): 6 Shower/Bathe Self (QC): 6 Upper Body Dressing(FIM): 6 Upper Body Dressing (QC): 6 Lower Body Dressing(FIM): 6 Lower Body Dressing (QC): 6 On/Off Footwear (QC): 6 Toileting(FIM): 6 Toileting Hygiene (QC): 6 Toilet/Commode Transfer(FIM): 6 Toilet/Commode Transfer (QC): 6 Shower Transfer(FIM): 6 Comprehension(FIM): 7 Expression (FIM): 7 Social Interaction(FIM): 7 Problem Solving(FIM): 6 Memory(FIM): 6 Additional Goals: 1-Demonstrate ADL Tasks, 2-Verbalize Understanding, 3- ImproveStrength/Monique 1=Demonstrate adherence to instructed precautions during ADL tasks. 2=Patient will verbalize/demonstrate understanding of assistive devices/ modifications for ADL. 3=Patient will improve strength/tolerance for activity to enable patient to perform ADL's. OT Education/Plan Problem List/Assessment Pt would benefit from skilled OT to increase her independence in basic self care to allow her to safely return home to live with her Discharge Recommendations Plan/Recommendations: Continue POC Treatment Plan/Plan of Care Patient would benefit from OT for education, treatment and training to promote independence in ADL's, mobility, safety and/or upper extremity function for ADL' s. Plan of Care: ADL Retraining, Functional Mobility, Group Exercise/Act as Ind ( educaiton, exercise, activity tolerance, functional activities, memory, socialization), UE Funct Exercise/Act, UE Neuromus Re-Ed/Coord Treatment Duration: Dec 30, 2017 Frequency: At least 5 of 7 days/Wk (IRF) Estimated Hrs Per Day: 1.5 hours per day Agreement: Yes Rehab Potential: Fair Time/GCodes Start Time: 08:30 Stop Time: 09:23 Total Time Billed (hr/min): 53 Billed Treatment Time visit, 53 minutes ADL RANCHO QUINTANA OT Dec 13, 2017 09:28
--- NOTE | 2017-12-13 11:25 | Speech Therapy Daily Note ---
Speech Daily Progress Note Subjective Date Seen by Provider: Dec 13, 2017 Time Seen by Provider: 10:30 Pt up in chair. Pleasant and cooperative. Pain Numeric Pain Scale: 0-No Pain Objective Memory - Picture recall. Pt provided picture and verbalizes out loud what she sees to facilitate recall. Pt was 100% accurate. Ordering 4 words into sentences. Pt provided 4 words and she was to reorder them into sentences. Pt was 65% accurate with min assist. Treatment Plan Continue Plan of Care Communication Comprehension: 7 Expression: 7 Social Cognition Social Interaction: 7 Problem Solvin Memory: 4 Speech Short Term Goals Short Term Goals Short Term Goals Pt will complete problem solving tasks with at least 85% accuracy and min assist. Pt will complete memory activities with at least 80% accuracy and min assist. Time Frame-ST week Comprehension: 7 Expression: 7 Social Interaction: 7 Problem Solvin Memory: 5 Speech Detention Goals Detention Goals Pt will demonstrate functional cognition for safety and maximum independence for the home setting. Comprehension: 7 Expression: 7 Social Interaction: 7 Problem Solvin Memory: 6 Speech-Plan Patient/Family Goals Patient/Family Goals: to return home. Treatment Plan Speech Therapy Treatment Plan: Continue Plan of Care pt very cooperative. Frequency: 5 times per week Estimated Hrs Per Day: .5 hour per day Rehab Potential: Good Pt/Family Agrees to Plan: Yes Safety Risks/Education Teaching Recipient: Patient Teaching Methods: Discussion Response to Teaching: Verbalize Understanding Time Speech Therapy Time In: 10:30 Speech Therapy Time Out: 11:00 Total Billed Time: 30 Billed Treatment Time 1, SLELIGIO Mena Dec 13, 2017 11:25
[2017-12-13] MEDS: KCL 20 MEQ TAB (K-DUR) PO PRN (11:47)
[2017-12-13] MEDS: FUROSEMIDE 40 MG (LASIX) TAB PO PRN (11:47)
--- NOTE | 2017-12-13 13:03 | Physical Therapy Daily Note ---
PT Daily Note-Current Subjective Pt. states she is tired and wants to lay down after Rx. Pain Numeric Pain Scale: 0-No Pain Mental Status Patient Orientation: Normal For Age Transfers Functional [place] Measure 0=Not Assessed/NA 4=Minimal Assistance 1=Total Assistance 5=Supervision or Setup 2=Maximal Assistance 6=Modified [place] 3=Moderate Assistance 7=Complete IndependenceIRFPAI Quality Coding Scale 6 Independent with activity with or without an assistive device 5 Patient requires set up or clean up by helper. Patient completes activity by themselves 4 Supervision or touching assist (CGA). [place] provide cues , steadying assist 3 The helper provides less than half the effort to complete the activity 2 The helper provides more than half the effort to complete the activity 1 Dependent. The helper does all the effort to complete an activity 7 Patient refused to complete or attempt activity 9 The patient did not perform the activity before the current illness or injury 88 Not attempted due to Medical conditions or safety concerns Transfers (B, C, W/C) (FIM): 4 Scootin Rollin Supine to/from Sit: 4 Sit to/from Stand: 5 Weight Bearing Right Lower Extremity: Right Weight Bearing/Tolerated Left Lower Extremity: Left Weight Bearing/Tolerated Gait Training Does the Patient Walk?: Yes Gait (FIM): 5 Distance (FIM): 3=150 ft (175x2) Gait Level of Assist: 5 Gait Persons Needed: 1 Gait Assistive Device: FWW Exercises Supine Ex: Bridging, Ankle pumps, Quad Set, Rolling, Glut sets, Heel Slides, Short Arc Quads, Scooting, Straight leg raise (assist), Hip abd/add Supine Reps: 15 Seated Therapy Exercises: Ankle pumps, Sit to stand, Long arc quads, Hip flexion Seated Reps: 10 NuStep Minutes: 10 NuStep Workload: 2 Assessment Current Status: Good Progress PT Short Term Goals Short Term Goals Time Frame: Dec 16, 2017 Gait (FIM): 1 Gait Distance Comment: 20' Gait Level of Assist: 4 Gait Assistive Device: FWW PT Residential Goals Sales And Management Trainee Goals PT Sales And Management Trainee Goals Time Frame: Dec 30, 2017 Transfers (B,C,W/C) (FIM): 5 Sit to Lying (QC): 4 Lying-Sitting on Side/Bed(QC): 4 Sit to Stand (QC): 4 Rollin Roll Left to Right (QC): 4 Chair/Dwy-fy-Czmbz Xfer(QC): 4 Car Transfer (QC): 4 Gait (FIM): 2 Distance: 50' Walk 10 feet (QC): 4 Walk 10ft-Uneven Surface(QC): 4 Walk 50ft with 2 Turns (QC): 4 Gait Level of Assist: 5 Gait Assistive Device: FWW Stairs (FIM): 2 # of Steps: 4 1 Step (curb) (QC): 4 4 Steps (QC): 4 Stairs Level Of Assist: 4 PT Plan Treatment/Plan Treatment Plan: Continue Plan of Care Treatment Plan: Bed Mobility, Concurrent Therapy, Education, Functional Activity Monique, Functional Strength, Group Therapy, Gait, Safety, Therapeutic Exercise, Transfers Treatment Duration: Dec 30, 2017 Frequency: At least 5 of 7 days/Wk (IRF) Estimated Hrs Per Day: 1.5 hours per day Patient and/or Family Agrees t: Yes Safety Risks/Education Patient Education: Gait Training, Transfer Techniques, Correct Positioning, Safety Issues Teaching Recipient: Patient Teaching Methods: Demonstration, Discussion Response to Teaching: Verbalize Understanding, Return Demonstration, Reinforcement Needed Time/GCodes Time In: 1100 Time Out: 1200 Total Billed Treatment Time: 60 Total Billed Treatment 1,FA20m,EX25,GT15m G Codes Necessary: EVERETT Andujar PTA Dec 13, 2017 13:03
--- NOTE | 2017-12-13 14:57 | Occupational Ther Daily Note ---
OT Current Status-Daily Note Subjective Pt seen in room, up in recliner, agreeable to OT. No pain mentioned. Appearance Alert, cooperative Mental Status/Objective Functional [place] Measure 0=Not Assessed/NA 4=Minimal Assistance 1=Total Assistance 5=Supervision or Setup 2=Maximal Assistance 6=Modified [place] 3=Moderate Assistance 7=Complete [place] ADL-Treatment Functional [place] Measure 0=Not Assessed/NA 4=Minimal Assistance 1=Total Assistance 5=Supervision or Setup 2=Maximal Assistance 6=Modified [place] 3=Moderate Assistance 7=Complete IndependenceIRFPAI Quality Coding Scale 6 Independent with activity with or without an assistive device 5 Patient requires set up or clean up by helper. Patient completes activity by themselves 4 Supervision or touching assist (CGA). [place] provide cues , steadying assist 3 The helper provides less than half the effort to complete the activity 2 The helper provides more than half the effort to complete the activity 1 Dependent. The helper does all the effort to complete an activity 7 Patient refused to complete or attempt activity 9 The patient did not perform the activity before the current illness or injury 88 Not attempted due to Medical conditions or safety concerns Toileting (FIM): 5 (SBA, tall toilet. Managed clothing and hygiene) Toilet/Commode Transfer (FIM): 5 (SBA tall toilet, grab bar) Other Treatment Pt got up from recliner with SBA and walked to gym with no rest breaks, SBA, FWW. She did 12 minutes bilat UE exercise on arm bike set at 10W resistance, taking no breaks. Completed half of nuts and bolts board with no additional resistance on arms. Both to strengthen arms to help with ADLs and transfers and for overall activity tolerance, since O2 not on today. She walked back to her room with SBA, FWW and toileted. She was left up in recliner, chair alarm on, all needs met. Education OT Patient Education: Exercise program, Progress toward Goal/Update tx plan, Purpose of tx/functional activities Teaching Recipient: Patient Teaching Methods: Discussion Response to Teaching: Verbalize Understanding, Return Demonstration OT Short Term Goals Short Term Goals Time Frame: Dec 16, 2017 Eating(FIM): 7 Toileting(FIM): 5 Toilet/Commode Transfer(FIM): 5 Comprehension(FIM): 7 Expression(FIM): 7 Social Interaction(FIM): 7 Problem Solving(FIM): 5 Memory(FIM): 5 Additional Short Term Goals: 1-Demonstrate ADL Tasks, 2-Verbalize Understanding , 3-ImproveStrength/Monique 1=Demonstrate adherence to instructed precautions during ADL tasks. 2=Patient will verbalize/demonstrate understanding of assistive devices/ modifications for ADL. 3=Patient will improve strength/tolerance for activity to enable patient to perform ADL's. OT Custodial Goals Custodial Goals Time Frame: Dec 30, 2017 Eating (FIM): 7 Eating (QC): 6 Groomin Oral Hygiene (QC): 6 Bathing(FIM): 6 Shower/Bathe Self (QC): 6 Upper Body Dressing(FIM): 6 Upper Body Dressing (QC): 6 Lower Body Dressing(FIM): 6 Lower Body Dressing (QC): 6 On/Off Footwear (QC): 6 Toileting(FIM): 6 Toileting Hygiene (QC): 6 Toilet/Commode Transfer(FIM): 6 Toilet/Commode Transfer (QC): 6 Shower Transfer(FIM): 6 Comprehension(FIM): 7 Expression (FIM): 7 Social Interaction(FIM): 7 Problem Solving(FIM): 6 Memory(FIM): 6 Additional Goals: 1-Demonstrate ADL Tasks, 2-Verbalize Understanding, 3- ImproveStrength/Monique 1=Demonstrate adherence to instructed precautions during ADL tasks. 2=Patient will verbalize/demonstrate understanding of assistive devices/ modifications for ADL. 3=Patient will improve strength/tolerance for activity to enable patient to perform ADL's. OT Education/Plan Problem List/Assessment Pt would benefit from skilled OT to increase her independence in basic self care to allow her to safely return home to live with her Discharge Recommendations Plan/Recommendations: Continue POC Treatment Plan/Plan of Care Patient would benefit from OT for education, treatment and training to promote independence in ADL's, mobility, safety and/or upper extremity function for ADL' s. Plan of Care: ADL Retraining, Functional Mobility, Group Exercise/Act as Ind ( educaiton, exercise, activity tolerance, functional activities, memory, socialization), UE Funct Exercise/Act, UE Neuromus Re-Ed/Coord Treatment Duration: Dec 30, 2017 Frequency: At least 5 of 7 days/Wk (IRF) Estimated Hrs Per Day: 1.5 hours per day Agreement: Yes Rehab Potential: Good Time/GCodes Start Time: 14:00 Stop Time: 14:30 Total Time Billed (hr/min): 30 Billed Treatment Time visit, exercise 30 minutes RANCHO QUINTANA OT Dec 13, 2017 14:57
--- NOTE | 2017-12-13 15:07 | Physical Therapy Daily Note ---
PT Daily Note-Current Subjective Pt. agrees to Rx. States she is ready to relax after Rx. Pain Numeric Pain Scale: 0-No Pain Transfers Functional [place] Measure 0=Not Assessed/NA 4=Minimal Assistance 1=Total Assistance 5=Supervision or Setup 2=Maximal Assistance 6=Modified [place] 3=Moderate Assistance 7=Complete IndependenceIRFPAI Quality Coding Scale 6 Independent with activity with or without an assistive device 5 Patient requires set up or clean up by helper. Patient completes activity by themselves 4 Supervision or touching assist (CGA). [place] provide cues , steadying assist 3 The helper provides less than half the effort to complete the activity 2 The helper provides more than half the effort to complete the activity 1 Dependent. The helper does all the effort to complete an activity 7 Patient refused to complete or attempt activity 9 The patient did not perform the activity before the current illness or injury 88 Not attempted due to Medical conditions or safety concerns in bed on off chair SBA Weight Bearing Right Lower Extremity: Right Weight Bearing/Tolerated Left Lower Extremity: Left Weight Bearing/Tolerated Gait Training Gait Assistive Device: FWW 125ft, 150ft FWW SBA Exercises Seated Therapy Exercises: Ankle pumps, Sit to stand, Long arc quads, Hip flexion, Hip abd/add Seated Reps: 15 Assessment Current Status: Good Progress fatigued but making progress PT Short Term Goals Short Term Goals Time Frame: Dec 16, 2017 Gait (FIM): 1 Gait Distance Comment: 20' Gait Level of Assist: 4 Gait Assistive Device: FWW PT Intermediate Goals Dow[place] Goals PT Intermediate Goals Time Frame: Dec 30, 2017 Transfers (B,C,W/C) (FIM): 5 Sit to Lying (QC): 4 Lying-Sitting on Side/Bed(QC): 4 Sit to Stand (QC): 4 Rollin Roll Left to Right (QC): 4 Chair/Sds-zj-Lhedp Xfer(QC): 4 Car Transfer (QC): 4 Gait (FIM): 2 Distance: 50' Walk 10 feet (QC): 4 Walk 10ft-Uneven Surface(QC): 4 Walk 50ft with 2 Turns (QC): 4 Gait Level of Assist: 5 Gait Assistive Device: FWW Stairs (FIM): 2 # of Steps: 4 1 Step (curb) (QC): 4 4 Steps (QC): 4 Stairs Level Of Assist: 4 PT Plan Treatment/Plan Treatment Plan: Continue Plan of Care Treatment Plan: Bed Mobility, Concurrent Therapy, Education, Functional Activity Monique, Functional Strength, Group Therapy, Gait, Safety, Therapeutic Exercise, Transfers Treatment Duration: Dec 30, 2017 Frequency: At least 5 of 7 days/Wk (IRF) Estimated Hrs Per Day: 1.5 hours per day Patient and/or Family Agrees t: Yes Safety Risks/Education Patient Education: Gait Training, Transfer Techniques Time/GCodes Time In: 1445 Time Out: 1500 Total Billed Treatment Time: 15 Total Billed Treatment 1,FA15m G Codes Necessary: EVERETT Andujar AUTOMATIC CIGAR WRAPPER TENDER Dec 13, 2017 15:07
[2017-12-13 16:14] VITALS: BP 136/76
--- NOTE | 2017-12-13 20:08 | PM & R (SOAP) Progress Note ---
Subjective This was a face to face visit with the patient. Date Seen by Provider: Dec 13, 2017 Time Seen by Provider: 20:00 Subjective/Events-last exam Patient was seen in her room this evening Appreciate Dr Chandra note and orders Patient SBA for transfers Date Identified: Dec 13, 2017 Time Identified: 20:00 Medication Intervention: Meds adjusted for edema Review of Systems Cardiovascular: Edema Objective Physician Exam Last Set of Vital Signs Vital Signs Date Time Temp Pulse Resp B/P (MAP) Pulse Ox O2 Delivery O2 Flow Rate FiO2 12/13/17 19:52 95 Room Air 12/13/17 16:14 99.9 89 18 136/76 (96) 12/13/17 05:56 1.00 Capillary Refill : I&O Intake and Output 12/13/17 00:00 Intake Total 1465 ml Balance 1465 ml Intake Oral 1340 ml IV Total 125 ml # Voids 12 # Bowel Movements 2 General: Alert, Oriented X3, Cooperative, No Acute Distress HEENT: Atraumatic, PERRLA, EOMI, Mucous Memb Moist/[place], Other (02 by N/C in place) Neck: Supple, No JVD Lungs: Other (IMPROVED AIR MOVEMENT THROUGHOUT ) Heart: Regular Rate, Normal S1, Normal S2, Other (II/ SABRINA) Abdomen: Normal Bowel Sounds, Soft, No Tenderness Extremities: No Clubbing, Other (+ 2 edema) Skin: No Rashes Neuro: Normal Gait, Normal Speech Psych/Mental Status: Mental Status NL Results Lab Data Laboratory Tests 12/10/17 20:33: Glucometer 136H 12/11/17 05:05: White Blood Count 9.7, Red Blood Count 3.14L, Hemoglobin 8.8L, Hematocrit 28L, Mean Corpuscular Volume 90, Mean Corpuscular Hemoglobin 28, Mean Corpuscular Hemoglobin Concent 31L, Red Cell Distribution Width 14.8H, Platelet Count 387, Mean Platelet Volume 9.7, Neutrophils (%) (Auto) 81H, Lymphocytes (%) (Auto) 12 , Monocytes (%) (Auto) 5, Eosinophils (%) (Auto) 3, Basophils (%) (Auto) 0, Neutrophils # (Auto) 7.8, Lymphocytes # (Auto) 1.1, Monocytes # (Auto) 0.4, Eosinophils # (Auto) 0.3, Basophils # (Auto) 0.0, Sodium Level 143, Potassium Level 3.5L, Chloride Level 109H, Carbon Dioxide Level 23, Anion Gap 11, Blood Urea Nitrogen 16, Creatinine 1.05, Estimat Glomerular Filtration Rate 51, BUN/ Creatinine Ratio 15, Glucose Level 154H, Calcium Level 7.6L, Magnesium Level 1.8 12/11/17 11:03: Glucometer 239H 12/11/17 16:21: Glucometer 106 12/11/17 19:49: Glucometer 184H 12/12/17 05:30: White Blood Count 6.1, Red Blood Count 2.06L, Hemoglobin 6.0#*L, Hematocrit 19*L , Mean Corpuscular Volume 93, Mean Corpuscular Hemoglobin 29, Mean Corpuscular Hemoglobin Concent 31L, Red Cell Distribution Width 14.7H, Platelet Count 226, Mean Platelet Volume 9.4, Sodium Level 145, Potassium Level 2.5*L, Chloride Level 122H, Carbon Dioxide Level 17L, Anion Gap 6, Blood Urea Nitrogen 9, Creatinine 0.68, Estimat Glomerular Filtration Rate > 60, BUN/Creatinine Ratio 13, Glucose Level 98, Calcium Level 5.0*L, Magnesium Level 1.0*L, B-Type Natriuretic Peptide 3154.6H 12/12/17 08:50: White Blood Count 8.5, Red Blood Count 3.08L, Hemoglobin 8.9#L, Hematocrit 28L, Mean Corpuscular Volume 91, Mean Corpuscular Hemoglobin 29, Mean Corpuscular Hemoglobin Concent 32, Red Cell Distribution Width 14.9H, Platelet Count 322, Mean Platelet Volume 9.6, Sodium Level 139, Potassium Level 4.4, Chloride Level 105, Carbon Dioxide Level 26, Anion Gap 8, Blood Urea Nitrogen 13, Creatinine 1.24, Estimat Glomerular Filtration Rate 42, BUN/Creatinine Ratio 10, Glucose Level 302H, Calcium Level 8.1L, Magnesium Level 1.7L, B-Type Natriuretic Peptide 4523.1H 12/12/17 11:33: Glucometer 243H 12/12/17 15:44: Glucometer 94 12/12/17 20:16: Glucometer 230H 12/13/17 04:40: White Blood Count 7.6, Red Blood Count 3.04L, Hemoglobin 8.5L, Hematocrit 28L, Mean Corpuscular Volume 91, Mean Corpuscular Hemoglobin 28, Mean Corpuscular Hemoglobin Concent 31L, Red Cell Distribution Width 15.1H, Platelet Count 336, Mean Platelet Volume 9.5, Sodium Level 140, Potassium Level 3.8, Chloride Level 104, Carbon Dioxide Level 27, Anion Gap 9, Blood Urea Nitrogen 11, Creatinine 1.03, Estimat Glomerular Filtration Rate 52, BUN/Creatinine Ratio 11, Glucose Level 87, Calcium Level 8.3L, Corrected Calcium 9.1, Magnesium Level 1.7L, Iron Level 30L, Total Iron Binding Capacity 198L, Unsaturated Iron Binding Capacity 168, Transferrin % Saturation 15, Total Bilirubin 0.4, Aspartate Amino Transf ( AST/SGOT) 17, Alanine Aminotransferase (ALT/SGPT) 16, Alkaline Phosphatase 37L, Total Protein 5.2L, Albumin 3.0L 12/13/17 11:03: Glucometer 256H 12/13/17 16:02: Glucometer 101 Assessment/Plan Assessment and Plan 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 Anemia with reflux esophagitis s/p EGD DR Alvarado PAF Chronic diastolic CHF Cardiology and PCP following Peripheral edema Wraps and ddiuretic ordered DM2 HLP with intolerance to statins Hypothyroidism on replacement CKD stage 3 OA s/p Bilateral TKRS and Rt rotator cuff surgery Valvular HT D with moderate MR and Resp insufficiency weaning from 02 Discussed case with RT this evening Plan Continue Pt/OT F/U with DR Nicole PRN Wean from o2 as able Monitor diuresis and edeam and o2 sats and WT Team Conference 12-15-17 Co-Morbidities that are continuing to impact the rehab process: (include details ) JENN NORRIS MD Dec 13, 2017 20:08
--- NOTE | 2017-12-13 20:14 | Individualized Plan of Care ---
Individualized Plan of Care Rehab Nursing IPOC Order Admission Date Dec 09, 2017 at 11:21 Current Orders Orders Pt Evaluate/Treat Request (12/09/17 09:30) Request Ot Evaluate & Treat (12/09/17 09:30) Request For Cognitive Services (12/09/17 09:30) Admission Order(Inpt,Obs,Sdc) (12/09/17 11:55) Code/Resuscitation (12/09/17 11:55) Initiate Admission Nursing Pro .admission (12/09/17 11:55) Isolation Central Supply Req (12/09/17 11:55) Follow-Up Appointment (12/09/17 11:55) Sequential Compression Device 08,20 (12/09/17 12:11) Heart Healthy (12/09/17 Dinner) Pantoprazole Tablet (Protonix Tablet) (12/10/17 07:00) Albuterol/Ipra Inhalation Soln (Duoneb I (12/09/17 14:00) Svn Small Volume Nebulizer (12/09/17 12:11) Accucheck Achs ACHS (12/09/17 12:11) Acetaminophen Tablet (Tylenol Tablet) (12/09/17 12:15) Apixaban Tablet (Eliquis Tablet) (12/09/17 21:00) Diclofenac 1% Gel (Voltaren 1% Gel) (12/09/17 12:15) Digoxin Tablet (Lanoxin Tablet) (12/10/17 09:00) Ezetimibe Tablet (Zetia Tablet) (12/09/17 21:00) Fluticasone Nasal [place] (Flonase Nasal S (12/09/17 12:15) Furosemide Tablet (Lasix Tablet) (12/09/17 12:15) Gabapentin Capsule/Tablet (Neurontin Cap (12/09/17 13:00) Levothyroxine Tablet (Synthroid Tablet) (12/10/17 06:30) Metformin Tablet (Glucophage Tablet) (12/09/17 21:00) Metformin Tablet (Glucophage Tablet) (12/10/17 07:00) Metoprolol Succinate (Xl) Tab (Toprol Xl (12/10/17 09:00) Nitroglycerin 0.4 Mg Btl 25's (Nitrostat (12/09/17 12:15) [place] 3 Capsule (Fish Oil Capsule) (12/10/17 09:00) Potassium Chloride (Tablet) (K Dur Table (12/09/17 12:15) Prasugrel Tablet (Effient Tablet) (12/10/17 09:00) Sacubitril/Valsartan 24/26 Mg (Entresto (12/09/17 21:00) Ambulate 08,12,20 (12/09/17 12:50) Sequential Compression Device 08,20 (12/09/17 12:50) Dvt/Vte Risk - Notifiy Physici 08 (12/09/17 12:50) Patient Visit (12/09/17 ) Pt Eval Moderate Complexity (12/09/17 ) Gait Training, Ea 15 Min (12/09/17 ) Albuterol/Ipra Inhalation Soln (Duoneb I (12/09/17 13:00) Patient Visit (12/09/17 ) Functional Activities, Ea 15 (12/09/17 ) Piperacillin Sodium/Tazobactam (Zosyn Vi (12/09/17 17:00) Aspirin Chewable Tablet (Baby Aspirin Ch (12/10/17 09:00) Non-Formulary Medication (Non-Formulary (12/09/17 14:45) Non-Formulary Medication (Non-Formulary (12/09/17 21:00) Non-Formulary Medication (Non-Formulary (12/10/17 09:00) Acetaminophen Tablet (Tylenol Tablet) (12/09/17 21:00) Diphenhydramine Tablet (Benadryl Tablet) (12/09/17 21:00) Citalopram Tablet (Celexa Tablet) (12/09/17 15:00) Consult Pulmonology (12/09/17 14:43) Consult Cardiology (12/09/17 14:43) Consult Family Medicine (12/09/17 14:43) Metoprolol Succinate (Xl) Tab (Toprol Xl (12/10/17 09:00) Weight Bearing Status (12/09/17 14:51) Insulin Determir (Per Unit) (Levemir (Pe (12/10/17 09:00) Phenol Throat [place] (Chloraseptic [place]) (12/09/17 15:00) Phenol/Na Phenolate Lozenge (Chlorasepti (12/09/17 15:00) Oxygen-Administer 07,19 (12/09/17 14:57) Oxygen Delivery Set Up (12/09/17 14:57) Incentive Spirometry (Nursing) Q2H (12/09/17 15:08) Patient Visit (12/09/17 ) Speech Sound Lang Comp (12/09/17 ) Patient Visit (12/09/17 ) Functional Activities, Ea 15 (12/09/17 ) Insulin Aspart (Novolog) (Novolog (Charg (12/09/17 16:30) Basic Metabolic Panel (12/11/17 05:00) Magnesium (12/11/17 05:00) Cbc With Automated Diff (12/11/17 05:00) Apixaban Tablet (Eliquis Tablet) (12/10/17 21:00) Telemetry (12/10/17 09:25) Telemetry Nursing Assessment ( (12/10/17 09:25) Nystatin Oral Suspension (Mycostatin O (12/10/17 18:00) Patient Visit (12/10/17 ) Exercise Therap, Ea 15 Min (12/10/17 ) Functional Activities, Ea 15 (12/10/17 ) Therapeutic, Group (12/10/17 ) Patient Visit (12/10/17 ) Treat. Speech/Lang/Voice (12/10/17 ) Potassium Chloride (Tablet) (K Dur Table (12/11/17 08:15) Cbc No Diff (12/12/17 05:00) Basic Metabolic Panel (12/12/17 05:00) BNP (12/12/17 05:00) Patient Visit (12/11/17 ) Functional Activities, Ea 15 (12/11/17 ) Potassium Cl 10meq/50ml Ivpb (Kcl 10 Meq (12/12/17 07:15) Type And Screen (12/12/17 07:49) Magnesium (12/12/17 08:11) Basic Metabolic Panel (12/12/17 08:26) Magnesium (12/12/17 08:26) Cbc No Diff (12/12/17 08:28) Cbc No Diff (12/13/17 05:00) Comprehensive Metabolic Panel (12/13/17 05:00) Magnesium (12/13/17 05:00) Furosemide Injection (Lasix Injection) (12/12/17 09:45) Magnesium Oxide Tablet (Mag Ox Tablet) (12/12/17 09:45) Red Cells Leukocytes Reduced (12/12/17 09:34) Apixaban Tablet (Eliquis Tablet) (12/12/17 09:00) BNP (12/12/17 08:50) Iron Tibc %Sat & Ferritin (12/13/17 08:36) Jose Pena 21 (12/13/17 09:25) Patient Visit (12/13/17 ) Functional Activities, Ea 15 (12/13/17 ) Gait Training, Ea 15 Min (12/13/17 ) Exercise Therap, Ea 15 Min (12/13/17 ) Patient Visit (12/13/17 ) Functional Activities, Ea 15 (12/13/17 ) Patient Visit (12/13/17 ) Treat. Speech/Lang/Voice (12/13/17 ) Albuterol/Ipra Inhalation Soln (Duoneb I (12/13/17 21:00) Rehab Nursing Orders: Ongoing Assess. of Function Status, Disease Management & Educaiton, DVT Prophylaxis, Fall Prevention, Fluid/Electrolyte/Nutrition Mgmt, Infection Prevention, Medication Management & Education, Management of Risks & Complications, Management of Skin Intergrity, Nutrition Management, Pain Management, Patient/Family Support PT IPOC Problem List: Activity Tolerance, Functional Strength, Safety, Balance, Gait, Transfer, Bed Mobility Treatment Plan: Continue Plan of Care Bed Mobility, Concurrent Therapy, Education, Functional Activity Monique, Functional Strength, Group Therapy, Gait, Safety, Therapeutic Exercise, Transfers Treatment Duration: Dec 30, 2017 Frequency: At least 5 of 7 days/Wk (IRF) Estimated Hrs Per Day: 1.5 hours per day OT IPOC Problems: Decreased Activ Tolerance, Decreased UE Strength, Dependent Transfers , Edema, Impaired Coordination, Impaired Self-Care Skills, Restricted Funct UE ROM OT Treatment, Training and Edu: Yes OT Problems Pt would benefit from skilled OT to increase her independence in basic self care to allow her to safely return home to live with her Plan of Care: ADL Retraining, Functional Mobility, Group Exercise/Act as Ind ( educaiton, exercise, activity tolerance, functional activities, memory, socialization), UE Funct Exercise/Act, UE Neuromus Re-Ed/Coord Treatment Duration: Dec 30, 2017 Frequency: At least 5 of 7 days/Wk (IRF) Estimated Hrs Per Day: 1.5 hours per day [facility] Speech Therapy Treatment Plan: Continue Plan of Care Treatment Duration: Dec 21, 2017 Frequency: 5 times per week Estimated Hrs Per Day: .5 hour per day Cellular Equipment Repairer/Case Mgmt Cellular Equipment Repairer/Case Managemen: Discharge Planning, Patient/Family Counseling Dietitian/Vegetable Specker Dietitian/Vegetable Specker to monitor nutritional status and make changes and/or recommendations as needed and work with speech pathology on dietary upgrades as the occur. Physician IPOC Medical Issues being managed closely and that require the 24 hour availability of a physician: Chronic diastolic CHF associated with peripheral edema Hypokalemia DM PAF CAD s/p stenting CKD stage 3 Anemia with reflux esophagitis [facility] code 03.3 Etiologic DX Critical illness myopathy Medical Issues: DVT Prophylaxis, Falls Precautions, Fluid/Electrolyte/ Nutrition Balance, Infection Protection, Pain Management, Other (List) (as per above) Brief Synthesis of Preadmission Screen, Post-Admission Evaluation, and Therapy Evaluations:77 yo female who had been Independent prior to bout of pneumonia associated with Sepsis left with a decline in functional Independece PMH as per above Meds being adjusted currently for peripheral edema and clayton wraps ordered as well.Has a supportive family Medical Prognosis: good Anticipated Length of Stay: 1015-18 Modified Independent for adls and mobility skills Anticipated d/c Destination: Home with family and [facility] JENN NORRIS MD Dec 13, 2017 20:14
[2017-12-13] MEDS: diphenhydrAMINE 25 MG TAB (BENADRYL) PO SCH (20:38)
[2017-12-13] MEDS: ACETAMINOPHEN 500 MG TAB (TYLENOL) PO SCH (20:39)
[2017-12-13 20:50] VITALS: BP 149/79
[2017-12-13] MEDS: eZETimibe 10 MG (ZETIA) TABLET PO SCH (20:56)
[2017-12-14] MEDS: NYSTATIN ORAL SUSP 5 ML UDC PO SCH ×4 (00:05→17:08)
[2017-12-14 05:39] VITALS: BP 148/80
[2017-12-14] MEDS: inSUlin ASPART (NovoLOG) 1 UNIT/0.01 ML (CHARGE PER UNIT) SC SCH ×4 (06:00→21:00)
[2017-12-14] MEDS: PANTOPRAZOLE 40 MG (PROTONIX) TAB PO SCH (06:11)
[2017-12-14] MEDS: LEVOTHYROXINE 50 MCG (LEVOTHROID) TAB PO SCH (06:11)
[2017-12-14] MEDS: metFORMIN 500 MG (GLUCOPHAGE) TAB PO SCH ×3 (06:11→21:20)
[2017-12-14] MEDS: RT-ALBUTEROL/IPRATROPIUM 3 ML (DUONEB) VIAL INH SCH ×3 (07:15→19:45)
[2017-12-14] MEDS: SACUBITRIL/VALSARTAN 24/26 MG (ENTRESTO) TABLET PO SCH ×2 (08:29→21:20)
[2017-12-14] MEDS: GABAPENTIN 600 MG (NEURONTIN) TAB PO SCH ×3 (08:29→21:20)
[2017-12-14] MEDS: ASPIRIN 81 MG CHEW (CHILDREN'S ASA) PO SCH (08:30)
[2017-12-14] MEDS: APIXABAN 2.5 MG (ELIQUIS) TABLET PO SCH ×2 (08:30→21:20)
[2017-12-14] MEDS: MAGNESIUM OXIDE (MAG-OX)400 MG TAB PO SCH ×2 (08:30→17:08)
[2017-12-14] MEDS: DIGOXIN 0.125 MG (LANOXIN) TAB PO SCH (08:30)
[2017-12-14] MEDS: OMEGA 3 (FISH OIL) 1000 MG CAP PO SCH (08:30)
[2017-12-14] MEDS: meTOprolol SUCCINATE 100 MG (TOPROL XL) TAB PO SCH (08:30)
[2017-12-14] MEDS: inSUlin DETERMIR 1 UNIT/0.01 ML (LEVEMIR) CHARGE PER UNIT SQ SCH (08:31)
--- NOTE | 2017-12-14 08:40 | PM & R (SOAP) Progress Note ---
Subjective This was a face to face visit with the patient. Date Seen by Provider: Dec 14, 2017 Time Seen by Provider: 07:25 Subjective/Events-last exam Patient was seen in her room this AM Patient SBA for transfers Anemia improved s /p Transfusion Appreciate DR Goel notes and orders Date Identified: Dec 14, 2017 Time Identified: 07:30 Medication Intervention: Transfusion and meds added by DR Brice for Anemia and Hypomagnesemia Objective Physician Exam Last Set of Vital Signs Vital Signs Date Time Temp Pulse Resp B/P (MAP) Pulse Ox O2 Delivery O2 Flow Rate FiO2 12/14/17 07:15 94 Nasal Cannula 2.00 12/14/17 05:39 96.8 95 18 148/80 (102) 12/13/17 21:00 93 Capillary Refill : I&O Intake and Output 12/14/17 00:00 Intake Total 1750 ml Balance 1750 ml Intake Oral 1750 ml # Voids 16 # Bowel Movements 1 General: Alert, Oriented X3, Cooperative, No Acute Distress HEENT: Atraumatic, PERRLA, EOMI, Mucous Memb Moist/[place], Other (02 by N/C in place) Neck: Supple, No JVD Lungs: Other (IMPROVED AIR MOVEMENT THROUGHOUT ) Heart: Regular Rate, Normal S1, Normal S2, Other (II/ SABRINA) Abdomen: Normal Bowel Sounds, Soft, No Tenderness Extremities: No Clubbing, Other (+ 2 edema) Skin: No Rashes Neuro: Normal Gait, Normal Speech Psych/Mental Status: Mental Status NL Results Lab Data Laboratory Tests 12/11/17 11:03: Glucometer 239H 12/11/17 16:21: Glucometer 106 12/11/17 19:49: Glucometer 184H 12/12/17 05:30: White Blood Count 6.1, Red Blood Count 2.06L, Hemoglobin 6.0#*L, Hematocrit 19*L , Mean Corpuscular Volume 93, Mean Corpuscular Hemoglobin 29, Mean Corpuscular Hemoglobin Concent 31L, Red Cell Distribution Width 14.7H, Platelet Count 226, Mean Platelet Volume 9.4, Sodium Level 145, Potassium Level 2.5*L, Chloride Level 122H, Carbon Dioxide Level 17L, Anion Gap 6, Blood Urea Nitrogen 9, Creatinine 0.68, Estimat Glomerular Filtration Rate > 60, BUN/Creatinine Ratio 13, Glucose Level 98, Calcium Level 5.0*L, Magnesium Level 1.0*L, B-Type Natriuretic Peptide 3154.6H 12/12/17 08:50: White Blood Count 8.5, Red Blood Count 3.08L, Hemoglobin 8.9#L, Hematocrit 28L, Mean Corpuscular Volume 91, Mean Corpuscular Hemoglobin 29, Mean Corpuscular Hemoglobin Concent 32, Red Cell Distribution Width 14.9H, Platelet Count 322, Mean Platelet Volume 9.6, Sodium Level 139, Potassium Level 4.4, Chloride Level 105, Carbon Dioxide Level 26, Anion Gap 8, Blood Urea Nitrogen 13, Creatinine 1.24, Estimat Glomerular Filtration Rate 42, BUN/Creatinine Ratio 10, Glucose Level 302H, Calcium Level 8.1L, Magnesium Level 1.7L, B-Type Natriuretic Peptide 4523.1H 12/12/17 11:33: Glucometer 243H 12/12/17 15:44: Glucometer 94 12/12/17 20:16: Glucometer 230H 12/13/17 04:40: White Blood Count 7.6, Red Blood Count 3.04L, Hemoglobin 8.5L, Hematocrit 28L, Mean Corpuscular Volume 91, Mean Corpuscular Hemoglobin 28, Mean Corpuscular Hemoglobin Concent 31L, Red Cell Distribution Width 15.1H, Platelet Count 336, Mean Platelet Volume 9.5, Sodium Level 140, Potassium Level 3.8, Chloride Level 104, Carbon Dioxide Level 27, Anion Gap 9, Blood Urea Nitrogen 11, Creatinine 1.03, Estimat Glomerular Filtration Rate 52, BUN/Creatinine Ratio 11, Glucose Level 87, Calcium Level 8.3L, Corrected Calcium 9.1, Magnesium Level 1.7L, Iron Level 30L, Total Iron Binding Capacity 198L, Unsaturated Iron Binding Capacity 168, Transferrin % Saturation 15, Ferritin 164.7, Total Bilirubin 0.4, Aspartate Amino Transf (AST/SGOT) 17, Alanine Aminotransferase (ALT/SGPT) 16, Alkaline Phosphatase 37L, Total Protein 5.2L, Albumin 3.0L 12/13/17 11:03: Glucometer 256H 12/13/17 16:02: Glucometer 101 12/13/17 20:37: Glucometer 156H 12/14/17 06:10: Glucometer 149H Assessment/Plan Assessment and Plan 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
--- NOTE | 2017-12-14 08:46 | Progress Note ---
Subjective Date Seen by a Provider: Dec 14, 2017 Time Seen by a Provider: 09:00 Subjective/Events-last exam PT REPORTS THAT SHE IS FEELING BETTER TODAY - SHE IS WONDERING WHEN SHE CAN GO HOME. SHE REPORTS THAT HER WILL BE ABLE TO HELP HER AT HOME, SHE ALSO HAS HELP FROM FRIENDS AND A PAID CAREGIVER WILL BE ENGAGED WELL. Review of Systems General: No Chills; Fatigue HEENT: No Head Aches Pulmonary: Dyspnea Cardiovascular: Edema; No: Chest Pain Gastrointestinal: No: Nausea, Abdominal Pain Neurological: Weakness; No: Confusion Objective Exam Last Set of Vital Signs Vital Signs Date Time Temp Pulse Resp B/P (MAP) Pulse Ox O2 Delivery O2 Flow Rate FiO2 12/14/17 07:15 94 Nasal Cannula 2.00 12/14/17 05:39 96.8 95 18 148/80 (102) 12/13/17 21:00 93 Capillary Refill : I&O Intake and Output 12/14/17 00:00 Intake Total 1750 ml Balance 1750 ml Intake Oral 1750 ml # Voids 16 # Bowel Movements 1 General: Alert, Oriented X3, Cooperative, No Acute Distress HEENT: Atraumatic, PERRLA, EOMI, Mucous Memb Moist/[place], Other (02 by N/C in place) Neck: Supple, No JVD Lungs: Other (IMPROVED AIR MOVEMENT THROUGHOUT ) Heart: Regular Rate, Normal S1, Normal S2, Other (II/ SABRINA) Abdomen: Normal Bowel Sounds, Soft, No Tenderness Extremities: No Clubbing, Other (+ 2 edema) Skin: No Rashes Neuro: Normal Gait, Normal Speech Psych/Mental Status: Mental Status NL Results Lab Laboratory Tests 12/13/17 11:03: Glucometer 256H 12/13/17 16:02: Glucometer 101 12/13/17 20:37: Glucometer 156H 12/14/17 06:10: Glucometer 149H Assessment/Plan Assessment/Plan Assess & Plan/Chief Complaint SEPSIS PNEUMONIA RESPIRATORY DISTRESS HYPERTENSION HEMOPTYSIS DIABETES MELLITUS CORONARY ARTERY DISEASE ATRIAL FIBRILLATION ANEMIA EDEMA SEPSIS WITH PNEUMONIA AND RESPIRATORY DISTRESS - PT NOW OFF OF OXYGEN DOING WELL - CONTINUE TO CLOSELY MONITOR FOR RETURN OF SHORTNESS OF BREATH OR WORSENING DYSPNEA ON EXERTION. HYPERTENSION - RESUMED HOME MEDICATIONS. - BLOOD PRESSURE STABLE. HEMOPTYSIS -RESOLVED DIABETES MELLITUS - DOING WELL ON HOME REGIMEN. CORONARY ARTERY DISEASE - DEFER TO DR. LOPEZ AFIB - DEFER TO DR. LOPEZ ANEMIA - STABLE - WILL GIVE IV VENOFER TODAY. WEAKNESS - PT TO CONTINUE WITH THERAPY SHE IS STILL PRETTY WEAK FROM HER PROLONGED HOSPITALIZATION. EDEMA - CONTINUE WITH PRN LASIX AND COMPRESSION SOCKS - CHECK BNP TOMORROW. PLANNING ON DISCHARGE TO HOME AT THE END OF THE WEEK. Clinical Quality Measures DVT/VTE Risk/Contraindication: Risk Factor Score Per Nursin RFS Level Per Nursing on Admit: 3=High KURTIS DIEGO MD Dec 14, 2017 08:46
[2017-12-14 10:00] VITALS: BP 148/74
[2017-12-14] MEDS: IRON SUCROSE 200 MG/10 ML (VENOFER) VIAL IV SCH (10:00)
--- NOTE | 2017-12-14 11:52 | Occupational Ther Daily Note ---
OT Current Status-Daily Note Subjective Pt seen in room, up in recliner, agreeable to OT. Would like to go home the end of this week. Appearance Alert, cooperative Mental Status/Objective Functional [place] Measure 0=Not Assessed/NA 4=Minimal Assistance 1=Total Assistance 5=Supervision or Setup 2=Maximal Assistance 6=Modified [place] 3=Moderate Assistance 7=Complete [place] ADL-Treatment Pt seen in room, up in recliner, ready to change clothing. O2 put back on last night, per pt. She was able to put on underwear and slacks with setup and SBA for standing, FWW. Dressed upper body with setup. Pt educ throughout on managing O2 tubing. Did not do socks. Pt walked to bathroom, SBA, FWW and toileted with SBA for transfer, managing clothing and hygiene. Stopped at sink to wash hands SBA, FWW. Pt educ throughout on managing O2 tubing while being mobile. Functional [place] Measure 0=Not Assessed/NA 4=Minimal Assistance 1=Total Assistance 5=Supervision or Setup 2=Maximal Assistance 6=Modified [place] 3=Moderate Assistance 7=Complete IndependenceIRFPAI Quality Coding Scale 6 Independent with activity with or without an assistive device 5 Patient requires set up or clean up by helper. Patient completes activity by themselves 4 Supervision or touching assist (CGA). [place] provide cues , steadying assist 3 The helper provides less than half the effort to complete the activity 2 The helper provides more than half the effort to complete the activity 1 Dependent. The helper does all the effort to complete an activity 7 Patient refused to complete or attempt activity 9 The patient did not perform the activity before the current illness or injury 88 Not attempted due to Medical conditions or safety concerns Grooming (FIM): 5 Upper Body (FIM): 5 Lower Body Dressing (FIM): 5 Toileting (FIM): 5 Toilet/Commode Transfer (FIM): 5 Other Treatment Pt walked to gym with SBA, FWW with OT managing O2 tank. She was able to get up/ down from chair with arms and completed graded clothespins and pegs with 1# weight on each arm, to strengthen arms for ADLs and increase activity tolerance. She walked back to room with SBA, FWW and was left up in bed, O2 in place, chair alarm on, all needs met. Education OT Patient Education: Progress toward Goal/Update tx plan, Purpose of tx/ functional activities, Safety issues Teaching Recipient: Patient Teaching Methods: Demonstration, Discussion Response to Teaching: Verbalize Understanding, Return Demonstration, Reinforcement Needed OT Short Term Goals Short Term Goals Time Frame: Dec 16, 2017 Eating(FIM): 7 Toileting(FIM): 5 Toilet/Commode Transfer(FIM): 5 Comprehension(FIM): 7 Expression(FIM): 7 Social Interaction(FIM): 7 Problem Solving(FIM): 5 Memory(FIM): 5 Additional Short Term Goals: 1-Demonstrate ADL Tasks, 2-Verbalize Understanding , 3-ImproveStrength/Monique 1=Demonstrate adherence to instructed precautions during ADL tasks. 2=Patient will verbalize/demonstrate understanding of assistive devices/ modifications for ADL. 3=Patient will improve strength/tolerance for activity to enable patient to perform ADL's. OT Care Home Goals Kiln Packer Goals Time Frame: Dec 30, 2017 Eating (FIM): 7 Eating (QC): 6 Groomin Oral Hygiene (QC): 6 Bathing(FIM): 6 Shower/Bathe Self (QC): 6 Upper Body Dressing(FIM): 6 Upper Body Dressing (QC): 6 Lower Body Dressing(FIM): 6 Lower Body Dressing (QC): 6 On/Off Footwear (QC): 6 Toileting(FIM): 6 Toileting Hygiene (QC): 6 Toilet/Commode Transfer(FIM): 6 Toilet/Commode Transfer (QC): 6 Shower Transfer(FIM): 6 Comprehension(FIM): 7 Expression (FIM): 7 Social Interaction(FIM): 7 Problem Solving(FIM): 6 Memory(FIM): 6 Additional Goals: 1-Demonstrate ADL Tasks, 2-Verbalize Understanding, 3- ImproveStrength/Monique 1=Demonstrate adherence to instructed precautions during ADL tasks. 2=Patient will verbalize/demonstrate understanding of assistive devices/ modifications for ADL. 3=Patient will improve strength/tolerance for activity to enable patient to perform ADL's. OT Education/Plan Problem List/Assessment Pt would benefit from skilled OT to increase her independence in basic self care to allow her to safely return home to live with her Discharge Recommendations Plan/Recommendations: Continue POC Treatment Plan/Plan of Care Patient would benefit from OT for education, treatment and training to promote independence in ADL's, mobility, safety and/or upper extremity function for ADL' s. Plan of Care: ADL Retraining, Functional Mobility, Group Exercise/Act as Ind ( educaiton, exercise, activity tolerance, functional activities, memory, socialization), UE Funct Exercise/Act, UE Neuromus Re-Ed/Coord Treatment Duration: Dec 30, 2017 Frequency: At least 5 of 7 days/Wk (IRF) Estimated Hrs Per Day: 1.5 hours per day Agreement: Yes Rehab Potential: Good Time/GCodes Start Time: 08:30 Stop Time: 09:30 Total Time Billed (hr/min): 60 Billed Treatment Time visit, 40 minutes ADL, 20 minutes exercise RANCHO QUINTANA OT Dec 14, 2017 11:52
[2017-12-14 12:00] VITALS: BP 165/80
--- NOTE | 2017-12-14 12:06 | Physical Therapy Daily Note ---
PT Daily Note-Current Subjective Pt sitting in recliner upon arrival. Pt agrees to PT. Pt also recognizes this DISPATCHER ELECTRIC POWER from [employer] and being known by DISPATCHER ELECTRIC POWER. Pain Numeric Pain Scale: 4 Location: Right, Left Location Body Site: Calf Pain Description: Tightness Mental Status Patient Orientation: Person, Place, Time, Situation Attachments: Oxygen (2L), Other-See Comments (MATTHEW espinal) Transfers Functional [place] Measure 0=Not Assessed/NA 4=Minimal Assistance 1=Total Assistance 5=Supervision or Setup 2=Maximal Assistance 6=Modified [place] 3=Moderate Assistance 7=Complete IndependenceIRFPAI Quality Coding Scale 6 Independent with activity with or without an assistive device 5 Patient requires set up or clean up by helper. Patient completes activity by themselves 4 Supervision or touching assist (CGA). [place] provide cues , steadying assist 3 The helper provides less than half the effort to complete the activity 2 The helper provides more than half the effort to complete the activity 1 Dependent. The helper does all the effort to complete an activity 7 Patient refused to complete or attempt activity 9 The patient did not perform the activity before the current illness or injury 88 Not attempted due to Medical conditions or safety concerns Weight Bearing Right Lower Extremity: Right Weight Bearing/Tolerated Left Lower Extremity: Left Weight Bearing/Tolerated Exercises Supine Ex: Ankle pumps, Quad Set, Scooting Supine Reps: 15 Seated Therapy Exercises: Ankle pumps, Long arc quads, Hip flexion, Kicking activity, Hip abd/add Seated Reps: 15 Treatments Pt completes Supine in recliner with feet reclined followed by Seated Ex with rest breaks as needed. Pt discusses with DISPATCHER ELECTRIC POWER pt education items such as Weekly ARU Meeting and how it works. Pt just concerned with being ready to be caregiver for Sp whos has CA. Pt has all needs met at end of tx. Assessment Current Status: Good Progress PT Short Term Goals Short Term Goals Time Frame: Dec 16, 2017 Gait (FIM): 1 Gait Distance Comment: 20' Gait Level of Assist: 4 Gait Assistive Device: FWW PT Retirement Goals Instrument And Control Service Person Goals PT Instrument And Control Service Person Goals Time Frame: Dec 30, 2017 Transfers (B,C,W/C) (FIM): 5 Sit to Lying (QC): 4 Lying-Sitting on Side/Bed(QC): 4 Sit to Stand (QC): 4 Rollin Roll Left to Right (QC): 4 Chair/Mhr-pd-Vnlaq Xfer(QC): 4 Car Transfer (QC): 4 Gait (FIM): 2 Distance: 50' Walk 10 feet (QC): 4 Walk 10ft-Uneven Surface(QC): 4 Walk 50ft with 2 Turns (QC): 4 Gait Level of Assist: 5 Gait Assistive Device: FWW Stairs (FIM): 2 # of Steps: 4 1 Step (curb) (QC): 4 4 Steps (QC): 4 Stairs Level Of Assist: 4 PT Plan Problem List Problem List: Activity Tolerance, Functional Strength, Safety, Balance, Gait, Transfer Treatment/Plan Treatment Plan: Continue Plan of Care Treatment Plan: Bed Mobility, Concurrent Therapy, Education, Functional Activity Monique, Functional Strength, Group Therapy, Gait, Safety, Therapeutic Exercise, Transfers Treatment Duration: Dec 30, 2017 Frequency: At least 5 of 7 days/Wk (IRF) Estimated Hrs Per Day: 1.5 hours per day Patient and/or Family Agrees t: Yes Safety Risks/Education Patient Education: Transfer Techniques, Correct Positioning, Safety Issues Teaching Recipient: Patient Teaching Methods: Discussion Response to Teaching: Verbalize Understanding Time/GCodes Time In: 1015 Time Out: 1100 Total Billed Treatment Time: 45 Total Billed Treatment 1, EX x3 (45m) G Codes Necessary: RYAN Jauregui PTA Dec 14, 2017 12:06
[2017-12-14] MEDS: amLODIPine 5 MG (NORVASC) TAB PO SCH (12:46)
--- NOTE | 2017-12-14 13:21 | Speech Therapy Daily Note ---
Speech Daily Progress Note Subjective Date Seen by Provider: Dec 14, 2017 Time Seen by Provider: 09:30 Pt in chair. Pain Numeric Pain Scale: 0-No Pain Objective Memory - Picture recall after 20 minute delay was 90% accurate. Problem solving - Which word does not belong. Pt given a group of words and she was to decide which word doesn't belong and explain why she picked it. The pt had difficulty with the concept of the activity and required mod assist to complete. Assessment Assessment Current Status: Fair Progress Communication Comprehension: 7 Expression: 7 Social Cognition Social Interaction: 7 Problem Solvin Memory: 4 Speech Short Term Goals Short Term Goals Short Term Goals Pt will complete problem solving tasks with at least 85% accuracy and min assist. Pt will complete memory activities with at least 80% accuracy and min assist. Time Frame-ST week Comprehension: 7 Expression: 7 Social Interaction: 7 Problem Solvin Memory: 5 Speech Horse Identifier Goals Nursing Home Goals Pt will demonstrate functional cognition for safety and maximum independence for the home setting. Comprehension: 7 Expression: 7 Social Interaction: 7 Problem Solvin Memory: 6 Speech-Plan Patient/Family Goals Patient/Family Goals: to return home. Treatment Plan Speech Therapy Treatment Plan: Continue Plan of Care pt pleasant and cooperative in tx. Treatment Duration: Dec 21, 2017 Frequency: 5 times per week Estimated Hrs Per Day: .5 hour per day Rehab Potential: Good Pt/Family Agrees to Plan: Yes Safety Risks/Education Teaching Recipient: Patient Teaching Methods: Discussion Response to Teaching: Verbalize Understanding Time Speech Therapy Time In: 09:30 Speech Therapy Time Out: 10:00 Total Billed Time: 30 Billed Treatment Time 1, SLELIGIO Mena Dec 14, 2017 13:21
--- NOTE | 2017-12-14 13:23 | Occupational Ther Daily Note ---
OT Current Status-Daily Note Subjective Pt seen in room, up in recliner, agreeable to OT. No pain mentioned Appearance Alert, cooperative Mental Status/Objective Functional [place] Measure 0=Not Assessed/NA 4=Minimal Assistance 1=Total Assistance 5=Supervision or Setup 2=Maximal Assistance 6=Modified [place] 3=Moderate Assistance 7=Complete [place] ADL-Treatment Functional [place] Measure 0=Not Assessed/NA 4=Minimal Assistance 1=Total Assistance 5=Supervision or Setup 2=Maximal Assistance 6=Modified [place] 3=Moderate Assistance 7=Complete IndependenceIRFPAI Quality Coding Scale 6 Independent with activity with or without an assistive device 5 Patient requires set up or clean up by helper. Patient completes activity by themselves 4 Supervision or touching assist (CGA). [place] provide cues , steadying assist 3 The helper provides less than half the effort to complete the activity 2 The helper provides more than half the effort to complete the activity 1 Dependent. The helper does all the effort to complete an activity 7 Patient refused to complete or attempt activity 9 The patient did not perform the activity before the current illness or injury 88 Not attempted due to Medical conditions or safety concerns Other Treatment Pt completed 10 reps bilat UE exercise with yellow theraband (gentle resistance) , with 5 different exercises to strengthen arms to help with transfers and ADLs and increase activity tolerance. Pt educ on each exercise, with occasional skilled cues to do each exercise correctly. Pt left up in recliner, all needs met, O2 in place. Education OT Patient Education: Exercise program, Purpose of tx/functional activities Teaching Recipient: Patient Teaching Methods: Demonstration, Discussion Response to Teaching: Verbalize Understanding, Return Demonstration, Reinforcement Needed OT Short Term Goals Short Term Goals Time Frame: Dec 16, 2017 Eating(FIM): 7 Toileting(FIM): 5 Toilet/Commode Transfer(FIM): 5 Comprehension(FIM): 7 Expression(FIM): 7 Social Interaction(FIM): 7 Problem Solving(FIM): 5 Memory(FIM): 5 Additional Short Term Goals: 1-Demonstrate ADL Tasks, 2-Verbalize Understanding , 3-ImproveStrength/Monique 1=Demonstrate adherence to instructed precautions during ADL tasks. 2=Patient will verbalize/demonstrate understanding of assistive devices/ modifications for ADL. 3=Patient will improve strength/tolerance for activity to enable patient to perform ADL's. OT Senior Living Goals Law Office Manager Goals Time Frame: Dec 30, 2017 Eating (FIM): 7 Eating (QC): 6 Groomin Oral Hygiene (QC): 6 Bathing(FIM): 6 Shower/Bathe Self (QC): 6 Upper Body Dressing(FIM): 6 Upper Body Dressing (QC): 6 Lower Body Dressing(FIM): 6 Lower Body Dressing (QC): 6 On/Off Footwear (QC): 6 Toileting(FIM): 6 Toileting Hygiene (QC): 6 Toilet/Commode Transfer(FIM): 6 Toilet/Commode Transfer (QC): 6 Shower Transfer(FIM): 6 Comprehension(FIM): 7 Expression (FIM): 7 Social Interaction(FIM): 7 Problem Solving(FIM): 6 Memory(FIM): 6 Additional Goals: 1-Demonstrate ADL Tasks, 2-Verbalize Understanding, 3- ImproveStrength/Monique 1=Demonstrate adherence to instructed precautions during ADL tasks. 2=Patient will verbalize/demonstrate understanding of assistive devices/ modifications for ADL. 3=Patient will improve strength/tolerance for activity to enable patient to perform ADL's. OT Education/Plan Problem List/Assessment Pt would benefit from skilled OT to increase her independence in basic self care to allow her to safely return home to live with her Discharge Recommendations Plan/Recommendations: Continue POC Treatment Plan/Plan of Care Patient would benefit from OT for education, treatment and training to promote independence in ADL's, mobility, safety and/or upper extremity function for ADL' s. Plan of Care: ADL Retraining, Functional Mobility, Group Exercise/Act as Ind ( educaiton, exercise, activity tolerance, functional activities, memory, socialization), UE Funct Exercise/Act, UE Neuromus Re-Ed/Coord Treatment Duration: Dec 30, 2017 Frequency: At least 5 of 7 days/Wk (IRF) Estimated Hrs Per Day: 1.5 hours per day Agreement: Yes Rehab Potential: Good Time/GCodes Start Time: 13:00 Stop Time: 13:15 Total Time Billed (hr/min): 15 Billed Treatment Time visit, 15 minutes exercise RANCHO QUINTANA OT Dec 14, 2017 13:23
--- NOTE | 2017-12-14 15:00 | Cardiology Progress Note ---
Subjective Date Seen by Provider: Dec 14, 2017 Time Seen by Provider: 12:20 Subjective/Events-last exam Patient was seen at bedside, sitting comfortably, denied any chest pain. Review of Systems General: No Chills, No Night Sweats; Fatigue; No Malaise, No Appetite, No Other Pulmonary: No Dyspnea, No Cough, No Pleuritic Chest Pain, No Other Cardiovascular: No: Chest Pain, Palpitations, Orthopnea, Paroxysmal Noc. Dyspnea, Edema, Lt Headedness, Other Objective-Cardiology Exam Last Set of Vital Signs Vital Signs 12/13/17 12/14/17 12/14/17 12/14/17 12/14/17 12/14/17 21:00 05:39 07:15 09:48 10:00 13:00 Temp 96.8 Pulse 78 Resp 18 B/P (MAP) 148/74 (98) Pulse Ox 94 O2 Delivery Room Air O2 Flow Rate 2.00 FiO2 93 Capillary Refill : I&O Intake and Output 12/14/17 00:00 Intake Total 1750 ml Balance 1750 ml Intake Oral 1750 ml # Voids 16 # Bowel Movements 1 General: Alert, Oriented X3, Cooperative, No Acute Distress HEENT: Atraumatic, PERRLA, EOMI, Mucous Memb Moist/[place], Other (02 by N/C in place) Neck: Supple, No JVD Lungs: Other (IMPROVED AIR MOVEMENT THROUGHOUT ) Heart: Regular Rate, Normal S1, Normal S2, Other (II/ SABRINA) Abdomen: Normal Bowel Sounds, Soft, No Tenderness Extremities: No Clubbing, Other (+ 2 edema) Skin: No Rashes Neuro: Normal Gait, Normal Speech Psych/Mental Status: Mental Status NL Results Lab Laboratory Tests Test 12/13/17 16:02 12/13/17 20:37 12/14/17 06:10 12/14/17 11:04 Range/Units Glucometer 101 156 H 149 H 233 H 70-110 MG/DL A/P-Cardiology Admission Diagnosis Anemia Edema Pneumonia Hypertension Assessment/Plan Peripheral edema, improving, continue to monitor Hypertension, continue current medication monitor blood pressure Pneumonia with sepsis - management per Medical and Pulmonary Services Hemoptysis, likely due to pneumonia, now resolved Blood clots in stools, suggestive of GI bleed or swallowed blood from hemoptysis. W/u for this is with the [facility] Chronic diastolic CHF PAF, first documented on tele strips at Cardiac [facility]hab in early 2016. Currently in NSR H/o ischemic cm. LVEF on 02/18/17 was 35%. Echo of 12/03/17: LVEF 60-65%, LVH, grade 1 rehman dysfunction, mild to mod MR, mod to severe with valve area approx 1.1 sq cm and gradient approx 25 mmHg, PASP 25 mmHg CAD. S/p prox LAD stenting by Dr Obrien at [facility] on 02/20/17: Promus 2.5x24. Cath on 02/18/17 prior to cor stenting showed dual LAD, one of which was proximally occluded and the other was severely diseased. Rest of the cors had mod dz H/o ischemic cardiomyopathy. MPI of 01/12/17: anteroapical infarction w/o significant ischemia; LVEF 39% Dizziness and vertigo, improved after reduction of anti-htn and Invokana treatment in early Apr 2015. MRI head on 05/10/15 (Dr Mariano) did not show lesions other than possibility of chronic microvascular disease Valvular heart disease. Cath of 02/18/17 showed mod MR and a gradient across AoV of 25-30 mmHg. Mod with valve area 1.4 cm sq and mean gradient across aortic valve of 23 mmHg on echo of 01/08/17. Subsequent echo as noted above DM II CKD stage 3, likely diabetic nephropathy. eGFR on 05/25/17 is 44 Hyperlipidemia, but has intolerance to statins (severe joint pains) Hypothyroidism, treated with thyroid replacement therapy. TSH normal (2.19) on Bilateral leg and foot discomfort which has been diagnosed as neuropathy. Normal bilat EDDY in June 2014 Mild bilat carotid arterial disease on carotid u/s of 06/08/17 Abn ECG. ECG of 05/13/17: NSR, old ASMI H/o surgeries: S/p hysterectomy w/o oophorectomy; S/p bilateral knee replacement ; H/o R rotator cuff surgery Clinical Quality Measures DVT/VTE Risk/Contraindication: Risk Factor Score Per Nursin RFS Level Per Nursing on Admit: 3=High KATIE COLEMAN MD Dec 14, 2017 15:00
--- NOTE | 2017-12-14 15:38 | Physical Therapy Daily Note ---
PT Daily Note-Current Subjective Pt sitting in recliner upon arrival. Pt agrees to PT. Pain Location: No Pain Reported Mental Status Patient Orientation: Person, Place, Time, Situation Attachments: Oxygen (2L) Transfers Functional [place] Measure 0=Not Assessed/NA 4=Minimal Assistance 1=Total Assistance 5=Supervision or Setup 2=Maximal Assistance 6=Modified [place] 3=Moderate Assistance 7=Complete IndependenceIRFPAI Quality Coding Scale 6 Independent with activity with or without an assistive device 5 Patient requires set up or clean up by helper. Patient completes activity by themselves 4 Supervision or touching assist (CGA). [place] provide cues , steadying assist 3 The helper provides less than half the effort to complete the activity 2 The helper provides more than half the effort to complete the activity 1 Dependent. The helper does all the effort to complete an activity 7 Patient refused to complete or attempt activity 9 The patient did not perform the activity before the current illness or injury 88 Not attempted due to Medical conditions or safety concerns Scootin Sit to/from Stand: 5 Sit to Stand (QC): 5 Weight Bearing Right Lower Extremity: Right Weight Bearing/Tolerated Left Lower Extremity: Left Weight Bearing/Tolerated Gait Training Does the Patient Walk?: Yes Distance (FIM): 1=up to 49 ft Distance: 40' Walk 10 feet (QC): 5 Gait Level of Assist: 5 Gait Persons Needed: 1 Gait Assistive Device: FWW Exercises Seated Therapy Exercises: Sit to stand Seated Reps: 7 Treatments Pt practices sit to stand from recliner using FWW for Wound Care Nurse to check for pressure sores. Nurse finds soiled undergarments so FISHER TROLL LINE assists pt with donning/doffing undergarment & pants. Pt then ambulates to restroom then back to recliner to rest with all needs met at end of tx. Assessment Current Status: Good Progress Pt needs occasional rest break for fatigue. PT Short Term Goals Short Term Goals Time Frame: Dec 16, 2017 Gait (FIM): 1 Gait Distance Comment: 20' Gait Level of Assist: 4 Gait Assistive Device: FWW PT Alf Goals Composer Teaching Artist Goals PT Composer Teaching Artist Goals Time Frame: Dec 30, 2017 Transfers (B,C,W/C) (FIM): 5 Sit to Lying (QC): 4 Lying-Sitting on Side/Bed(QC): 4 Sit to Stand (QC): 4 Rollin Roll Left to Right (QC): 4 Chair/Vst-lx-Acbtg Xfer(QC): 4 Car Transfer (QC): 4 Gait (FIM): 2 Distance: 50' Walk 10 feet (QC): 4 Walk 10ft-Uneven Surface(QC): 4 Walk 50ft with 2 Turns (QC): 4 Gait Level of Assist: 5 Gait Assistive Device: FWW Stairs (FIM): 2 # of Steps: 4 1 Step (curb) (QC): 4 4 Steps (QC): 4 Stairs Level Of Assist: 4 PT Plan Problem List Problem List: Activity Tolerance, Functional Strength, Safety, Gait Treatment/Plan Treatment Plan: Continue Plan of Care Treatment Plan: Bed Mobility, Concurrent Therapy, Education, Functional Activity Monique, Functional Strength, Group Therapy, Gait, Safety, Therapeutic Exercise, Transfers Treatment Duration: Dec 30, 2017 Frequency: At least 5 of 7 days/Wk (IRF) Estimated Hrs Per Day: 1.5 hours per day Patient and/or Family Agrees t: Yes Safety Risks/Education Patient Education: Gait Training, Transfer Techniques, Correct Positioning, Safety Issues Teaching Recipient: Patient Teaching Methods: Discussion Response to Teaching: Verbalize Understanding Time/GCodes Time In: 1410 Time Out: 1440 Total Billed Treatment Time: 30 Total Billed Treatment 1, FA x2 (30m) G Codes Necessary: RYAN Jauregui PTA Dec 14, 2017 15:38
[2017-12-14 17:16] VITALS: BP 153/74
[2017-12-14 20:55] VITALS: BP 148/78
[2017-12-14] MEDS: eZETimibe 10 MG (ZETIA) TABLET PO SCH (21:21)
[2017-12-14] MEDS: ACETAMINOPHEN 500 MG TAB (TYLENOL) PO SCH (21:21)
[2017-12-14] MEDS: diphenhydrAMINE 25 MG TAB (BENADRYL) PO SCH (21:21)
[2017-12-15] MEDS: NYSTATIN ORAL SUSP 5 ML UDC PO SCH ×4 (00:16→17:20)
[2017-12-15 05:15] VITALS: BP 162/80
[2017-12-15] MEDS: inSUlin ASPART (NovoLOG) 1 UNIT/0.01 ML (CHARGE PER UNIT) SC SCH ×4 (06:00→21:04)
[2017-12-15 06:41] LABS: HEMOGLOBIN 9.1 G/DL (11.5-16.0); MEAN PLATELET VOLUME 9.9 FL (7.4-10.4); RED BLOOD COUNT 3.2 10^6/uL (4.35-5.85); RED CELL DISTRIBUTION WIDTH 15.5 % (10.0-14.5); WHITE BLOOD COUNT 8.5 10^3/uL (4.3-11.0)
[2017-12-15] MEDS: RT-ALBUTEROL/IPRATROPIUM 3 ML (DUONEB) VIAL INH SCH ×3 (06:53→19:33)
[2017-12-15] MEDS: PANTOPRAZOLE 40 MG (PROTONIX) TAB PO SCH (07:04)
[2017-12-15] MEDS: LEVOTHYROXINE 50 MCG (LEVOTHROID) TAB PO SCH (07:04)
[2017-12-15] MEDS: metFORMIN 500 MG (GLUCOPHAGE) TAB PO SCH ×3 (07:05→21:03)
[2017-12-15 07:07] LABS: CALCIUM 8.9 MG/DL (8.5-10.1); POTASSIUM 4.1 MMOL/L (3.6-5.0)
[2017-12-15] MEDS: KCL 20 MEQ TAB (K-DUR) PO PRN (07:49)
[2017-12-15] MEDS: FUROSEMIDE 40 MG (LASIX) TAB PO PRN (07:49)
--- NOTE | 2017-12-15 08:45 | PM & R (SOAP) Progress Note ---
Subjective This was a face to face visit with the patient. Date Seen by Provider: Dec 15, 2017 Time Seen by Provider: 07:50 Subjective/Events-last exam Patient was seen in her room this AM Diuresing well Patient SBA for transfers BP noted HGB 9.1 Date Identified: Dec 15, 2017 Time Identified: 08:00 Medication Intervention: Diurssing with adjustment in meds Review of Systems Pulmonary: Dyspnea Neurological: Weakness Objective Physician Exam Last Set of Vital Signs Vital Signs Date Time Temp Pulse Resp B/P (MAP) Pulse Ox O2 Delivery O2 Flow Rate FiO2 12/15/17 07:00 83 12/15/17 06:53 96 Nasal Cannula 2.00 12/15/17 05:15 98.4 20 162/80 (107) 12/14/17 21:00 94 Capillary Refill : I&O Intake and Output 12/15/17 00:00 Intake Total 1250 ml Balance 1250 ml Intake Oral 1250 ml # Voids 11 # Bowel Movements 1 General: Alert, Oriented X3, Cooperative, No Acute Distress HEENT: Atraumatic, PERRLA, EOMI, Mucous Memb Moist/[place], Other (02 by N/C in place) Neck: Supple, No JVD Lungs: Other (IMPROVED AIR MOVEMENT THROUGHOUT ) Heart: Regular Rate, Normal S1, Normal S2, Other (II/ SABRINA) Abdomen: Normal Bowel Sounds, Soft, No Tenderness Extremities: No Clubbing, Other (+ 2 edema) Skin: No Rashes Neuro: Normal Gait, Normal Speech Psych/Mental Status: Mental Status NL Results Lab Data Laboratory Tests 12/12/17 08:50: White Blood Count 8.5, Red Blood Count 3.08L, Hemoglobin 8.9#L, Hematocrit 28L, Mean Corpuscular Volume 91, Mean Corpuscular Hemoglobin 29, Mean Corpuscular Hemoglobin Concent 32, Red Cell Distribution Width 14.9H, Platelet Count 322, Mean Platelet Volume 9.6, Sodium Level 139, Potassium Level 4.4, Chloride Level 105, Carbon Dioxide Level 26, Anion Gap 8, Blood Urea Nitrogen 13, Creatinine 1.24, Estimat Glomerular Filtration Rate 42, BUN/Creatinine Ratio 10, Glucose Level 302H, Calcium Level 8.1L, Magnesium Level 1.7L, B-Type Natriuretic Peptide 4523.1H 12/12/17 11:33: Glucometer 243H 12/12/17 15:44: Glucometer 94 12/12/17 20:16: Glucometer 230H 12/13/17 04:40: White Blood Count 7.6, Red Blood Count 3.04L, Hemoglobin 8.5L, Hematocrit 28L, Mean Corpuscular Volume 91, Mean Corpuscular Hemoglobin 28, Mean Corpuscular Hemoglobin Concent 31L, Red Cell Distribution Width 15.1H, Platelet Count 336, Mean Platelet Volume 9.5, Sodium Level 140, Potassium Level 3.8, Chloride Level 104, Carbon Dioxide Level 27, Anion Gap 9, Blood Urea Nitrogen 11, Creatinine 1.03, Estimat Glomerular Filtration Rate 52, BUN/Creatinine Ratio 11, Glucose Level 87, Calcium Level 8.3L, Corrected Calcium 9.1, Magnesium Level 1.7L, Iron Level 30L, Total Iron Binding Capacity 198L, Unsaturated Iron Binding Capacity 168, Transferrin % Saturation 15, Ferritin 164.7, Total Bilirubin 0.4, Aspartate Amino Transf (AST/SGOT) 17, Alanine Aminotransferase (ALT/SGPT) 16, Alkaline Phosphatase 37L, Total Protein 5.2L, Albumin 3.0L 12/13/17 11:03: Glucometer 256H 12/13/17 16:02: Glucometer 101 12/13/17 20:37: Glucometer 156H 12/14/17 06:10: Glucometer 149H 12/14/17 11:04: Glucometer 233H 12/14/17 16:54: Glucometer 63L 12/14/17 17:59: Glucometer 97 12/14/17 21:08: Glucometer 137H 12/15/17 06:00: Glucometer 108 12/15/17 06:26: White Blood Count 8.5, Red Blood Count 3.20L, Hemoglobin 9.1L, Hematocrit 29L, Mean Corpuscular Volume 91, Mean Corpuscular Hemoglobin 28, Mean Corpuscular Hemoglobin Concent 31L, Red Cell Distribution Width 15.5H, Platelet Count 373, Mean Platelet Volume 9.9, Sodium Level 140, Potassium Level 4.1, Chloride Level 102, Carbon Dioxide Level 27, Anion Gap 11, Blood Urea Nitrogen 13, Creatinine 1.00, Estimat Glomerular Filtration Rate 54, BUN/Creatinine Ratio 13, Glucose Level 102, Calcium Level 8.9, B-Type Natriuretic Peptide 8140.8H Assessment/Plan Assessment and Plan 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
--- NOTE | 2017-12-15 08:53 | Cardiology Progress Note ---
Subjective Date Seen by Provider: Dec 15, 2017 Time Seen by Provider: 08:51 Subjective/Events-last exam Patient is sitting up in chair, c/o dyspnea this morning. Denies any CP or dizziness. Review of Systems General: No Night Sweats, No Fatigue, No Malaise HEENT: No Visual Changes, No Dysphasia, No Sore Throat Pulmonary: Dyspnea; No Cough, No Pleuritic Chest Pain Cardiovascular: Edema; No: Chest Pain, Palpitations, Paroxysmal Noc. Dyspnea Gastrointestinal: No: Nausea, Vomiting, Constipation Genitourinary: No Dysuria, No Frequency Musculoskeletal: No: neck pain, back pain Neurological: No: Weakness, Numbness, Change in speech, Confusion Objective-Cardiology Exam Last Set of Vital Signs Vital Signs 12/14/17 12/15/17 12/15/17 12/15/17 21:00 05:15 06:53 07:00 Temp 98.4 Pulse 83 Resp 20 B/P (MAP) 162/80 (107) Pulse Ox 96 O2 Delivery Nasal Cannula O2 Flow Rate 2.00 FiO2 94 Capillary Refill : I&O Intake and Output 12/15/17 00:00 Intake Total 1250 ml Balance 1250 ml Intake Oral 1250 ml # Voids 11 # Bowel Movements 1 General: Alert, Oriented X3, Cooperative, No Acute Distress HEENT: Atraumatic, PERRLA, EOMI, Mucous Memb Moist/[place], Other (02 by N/C in place) Neck: Supple, No JVD Lungs: Clear to Auscultation, Normal Air Movement, Other Heart: Regular Rate, Normal S1, Normal S2, Other (systolic murmur at LSB) Abdomen: Normal Bowel Sounds, Soft, No Tenderness Extremities: No Clubbing, Other (+ 2 edema) Skin: No Rashes Neuro: Normal Gait, Normal Speech Psych/Mental Status: Mental Status NL Results Lab Laboratory Tests 12/15/17 06:26 A/P-Cardiology Admission Diagnosis Anemia Edema Pneumonia Hypertension Assessment/Plan Peripheral edema, improving, continue to diurese as needed, continue to monitor Hypertension, continue current medication monitor blood pressure Pneumonia with sepsis - management per Medical and Pulmonary Services Hemoptysis, likely due to pneumonia, now resolved Blood clots in stools, suggestive of GI bleed or swallowed blood from hemoptysis. W/u for this is with the [employer] Chronic diastolic CHF PAF, first documented on tele strips at Cardiac Rehab in early 2016. Currently in NSR H/o ischemic cm. LVEF on 02/18/17 was 35%. Echo of 12/03/17: LVEF 60-65%, LVH, grade 1 rehman dysfunction, mild to mod MR, mod to severe with valve area approx 1.1 sq cm and gradient approx 25 mmHg, PASP 25 mmHg CAD. S/p prox LAD stenting by Dr Obrien at [facility] on 02/20/17: Promus 2.5x24. Cath on 02/18/17 prior to cor stenting showed dual LAD, one of which was proximally occluded and the other was severely diseased. Rest of the cors had mod dz H/o ischemic cardiomyopathy. MPI of 01/12/17: anteroapical infarction w/o significant ischemia; LVEF 39% Dizziness and vertigo, improved after reduction of anti-htn and Invokana treatment in early Apr 2015. MRI head on 05/10/15 (Dr Mariano) did not show lesions other than possibility of chronic microvascular disease Valvular heart disease. Cath of 02/18/17 showed mod MR and a gradient across AoV of 25-30 mmHg. Mod with valve area 1.4 cm sq and mean gradient across aortic valve of 23 mmHg on echo of 01/08/17. Subsequent echo as noted above DM II CKD stage 3, likely diabetic nephropathy. eGFR on 05/25/17 is 44 Hyperlipidemia, but has intolerance to statins (severe joint pains) Hypothyroidism, treated with thyroid replacement therapy. TSH normal (2.19) on Bilateral leg and foot discomfort which has been diagnosed as neuropathy. Normal bilat EDDY in June 2014 Mild bilat carotid arterial disease on carotid u/s of 06/08/17 Abn ECG. ECG of 05/13/17: NSR, old ASMI H/o surgeries: S/p hysterectomy w/o oophorectomy; S/p bilateral knee replacement ; H/o R rotator cuff surgery Clinical Quality Measures DVT/VTE Risk/Contraindication: Risk Factor Score Per Nursin RFS Level Per Nursing on Admit: 3=High LIZZIE HUITRON Dec 15, 2017 08:53
[2017-12-15 09:35] VITALS: BP 137/70
[2017-12-15] MEDS: DIGOXIN 0.125 MG (LANOXIN) TAB PO SCH (09:40)
[2017-12-15] MEDS: APIXABAN 2.5 MG (ELIQUIS) TABLET PO SCH ×2 (09:40→21:03)
[2017-12-15] MEDS: MAGNESIUM OXIDE (MAG-OX)400 MG TAB PO SCH ×2 (09:40→17:20)
[2017-12-15] MEDS: GABAPENTIN 600 MG (NEURONTIN) TAB PO SCH ×3 (09:40→21:03)
[2017-12-15] MEDS: OMEGA 3 (FISH OIL) 1000 MG CAP PO SCH (09:40)
[2017-12-15] MEDS: ASPIRIN 81 MG CHEW (CHILDREN'S ASA) PO SCH (09:40)
[2017-12-15] MEDS: amLODIPine 5 MG (NORVASC) TAB PO SCH (09:40)
[2017-12-15] MEDS: SACUBITRIL/VALSARTAN 24/26 MG (ENTRESTO) TABLET PO SCH ×2 (09:40→21:03)
[2017-12-15] MEDS: meTOprolol SUCCINATE 100 MG (TOPROL XL) TAB PO SCH (09:41)
[2017-12-15] MEDS: inSUlin DETERMIR 1 UNIT/0.01 ML (LEVEMIR) CHARGE PER UNIT SQ SCH (09:42)
--- NOTE | 2017-12-15 11:08 | Occupational Ther Daily Note ---
OT Current Status-Daily Note Subjective Pt seen in room, up in recliner, agreeable to OT. Wants to shower today Appearance Alert, cooperative Mental Status/Objective Functional [place] Measure 0=Not Assessed/NA 4=Minimal Assistance 1=Total Assistance 5=Supervision or Setup 2=Maximal Assistance 6=Modified [place] 3=Moderate Assistance 7=Complete [place] ADL-Treatment Pt would like to go home early next week due to her just finished chemo and he may have difficulty caring for her for a few days. IV site covered. O2 in place at 2L/min throughout, with pt educ on how to manage tubing while doing ADLs. Sit to stand with SBA, FWW and walked to bathroom SBA, FWW. On/off tall toilet with SBA, using grab bar and FWW. Managed clothing and hygiene SBA. Pt walked to shower and transferred to shower bench with SBA. Pt washed and dried all parts with setup, SBA for standing to dry bottom. Dressed upper and lower body with setup, SBA except TEDs not applied until legs are not damp. Nursing notified. Brushed hair SBA at sink, FWW. Pt walked to recliner, left up in recliner, all needs met, O2 in place, chair alarm on. Functional [place] Measure 0=Not Assessed/NA 4=Minimal Assistance 1=Total Assistance 5=Supervision or Setup 2=Maximal Assistance 6=Modified [place] 3=Moderate Assistance 7=Complete IndependenceIRFPAI Quality Coding Scale 6 Independent with activity with or without an assistive device 5 Patient requires set up or clean up by helper. Patient completes activity by themselves 4 Supervision or touching assist (CGA). Secor provide cues , steadying assist 3 The helper provides less than half the effort to complete the activity 2 The helper provides more than half the effort to complete the activity 1 Dependent. The helper does all the effort to complete an activity 7 Patient refused to complete or attempt activity 9 The patient did not perform the activity before the current illness or injury 88 Not attempted due to Medical conditions or safety concerns Grooming (FIM): 5 (SBA, FWW) Bathing (FIM): 5 (SBA, setup. Washed and dried all parts, shower bench, grab bars, hand held shower) Upper Body (FIM): 5 (setup) Lower Body Dressing (FIM): 5 (setup, SBA, FWW) Toileting (FIM): 5 (SBA, tall toilet, grab bar, FWW. managed clothing and hygiene SBA) Toilet/Commode Transfer (FIM): 5 (SBA, tall toilet, grab bar, FWW) Shower Transfer(FIM): 5 (SBA) OT Short Term Goals Short Term Goals Time Frame: Dec 16, 2017 Eating(FIM): 7 Toileting(FIM): 5 Toilet/Commode Transfer(FIM): 5 Comprehension(FIM): 7 Expression(FIM): 7 Social Interaction(FIM): 7 Problem Solving(FIM): 5 Memory(FIM): 5 Additional Short Term Goals: 1-Demonstrate ADL Tasks, 2-Verbalize Understanding , 3-ImproveStrength/Monique 1=Demonstrate adherence to instructed precautions during ADL tasks. 2=Patient will verbalize/demonstrate understanding of assistive devices/ modifications for ADL. 3=Patient will improve strength/tolerance for activity to enable patient to perform ADL's. OT Chcf Goals Chcf Goals Time Frame: Dec 30, 2017 Eating (FIM): 7 Eating (QC): 6 Groomin Oral Hygiene (QC): 6 Bathing(FIM): 6 Shower/Bathe Self (QC): 6 Upper Body Dressing(FIM): 6 Upper Body Dressing (QC): 6 Lower Body Dressing(FIM): 6 Lower Body Dressing (QC): 6 On/Off Footwear (QC): 6 Toileting(FIM): 6 Toileting Hygiene (QC): 6 Toilet/Commode Transfer(FIM): 6 Toilet/Commode Transfer (QC): 6 Shower Transfer(FIM): 6 Comprehension(FIM): 7 Expression (FIM): 7 Social Interaction(FIM): 7 Problem Solving(FIM): 6 Memory(FIM): 6 Additional Goals: 1-Demonstrate ADL Tasks, 2-Verbalize Understanding, 3- ImproveStrength/Monique 1=Demonstrate adherence to instructed precautions during ADL tasks. 2=Patient will verbalize/demonstrate understanding of assistive devices/ modifications for ADL. 3=Patient will improve strength/tolerance for activity to enable patient to perform ADL's. OT Education/Plan Problem List/Assessment Pt would benefit from skilled OT to increase her independence in basic self care to allow her to safely return home to live with her Discharge Recommendations Plan/Recommendations: Continue POC Treatment Plan/Plan of Care Patient would benefit from OT for education, treatment and training to promote independence in ADL's, mobility, safety and/or upper extremity function for ADL' s. Plan of Care: ADL Retraining, Functional Mobility, Group Exercise/Act as Ind ( educaiton, exercise, activity tolerance, functional activities, memory, socialization), UE Funct Exercise/Act, UE Neuromus Re-Ed/Coord Treatment Duration: Dec 30, 2017 Frequency: At least 5 of 7 days/Wk (IRF) Estimated Hrs Per Day: 1.5 hours per day Agreement: Yes Rehab Potential: Good Time/GCodes Start Time: 08:30 Stop Time: 09:30 Total Time Billed (hr/min): 50 Billed Treatment Time visit, 50 minutes ADL (10 minutes pt talking with SW) RANCHO QUINTANA OT Dec 15, 2017 11:08
--- NOTE | 2017-12-15 11:19 | Physical Therapy Daily Note ---
PT Daily Note-Current Subjective Pt sitting in recliner upon arrival. Pt agrees to PT. Pt reports feeling a little tired from OT & ST tx already this morning. Pain Numeric Pain Scale: 4 Location: Right, Left Location Body Site: Calf Pain Description: Tightness, Squeezing Mental Status Patient Orientation: Person, Place, Time, Situation Attachments: Oxygen (2L), Other-See Comments (MATTHEW hoses & Telemetry) Transfers Functional [place] Measure 0=Not Assessed/NA 4=Minimal Assistance 1=Total Assistance 5=Supervision or Setup 2=Maximal Assistance 6=Modified [place] 3=Moderate Assistance 7=Complete IndependenceIRFPAI Quality Coding Scale 6 Independent with activity with or without an assistive device 5 Patient requires set up or clean up by helper. Patient completes activity by themselves 4 Supervision or touching assist (CGA). [place] provide cues , steadying assist 3 The helper provides less than half the effort to complete the activity 2 The helper provides more than half the effort to complete the activity 1 Dependent. The helper does all the effort to complete an activity 7 Patient refused to complete or attempt activity 9 The patient did not perform the activity before the current illness or injury 88 Not attempted due to Medical conditions or safety concerns Scootin Sit to/from Stand: 5 Sit to Stand (QC): 5 Pt needs VC for managing O2 line when sitting. Weight Bearing Right Lower Extremity: Right Weight Bearing/Tolerated Left Lower Extremity: Left Weight Bearing/Tolerated Gait Training Does the Patient Walk?: Yes Distance (FIM): 3=150 ft Distance: 150' Walk 10 feet (QC): 5 Walk 50 ft with 2 Turns(QC): 5 Walk 150 ft (QC): 5 Gait Level of Assist: 5 Gait Persons Needed: 1 Gait Assistive Device: FWW Pt walks with slow but steady grupo, no LOB. Pt fatigues quickly by end of tx. Wheelchair Training Does the Pt Use a Wheelchair?: No Exercises Seated Therapy Exercises: Ankle pumps, Long arc quads, Hip flexion, Kicking activity, Hip abd/add Seated Reps: 15 NuStep Minutes: 15 NuStep Workload: 4 Treatments Nurse replaces MATTHEW hoses & Telemetry before pt transfers from recliner. Pt transfers using FWW and ambulates to restroom due to Lasix. Pt ambulates in hallway to Therapy Gym. Pt uses NuStep for 15m at [facility] 4 then transfers to chair for rest followed by Seated Ex. Pt [facility]ulates [facility] [employer] [facility] [employer] again to practice on managing O2 line especially with transfers. Pt needs to use restroom again so returns to room. Pt then returns to recliner to rest at end of tx with all needs met. Assessment Current Status: Good Progress Pt fatigues easily and needs occasional rest breaks but quick recovery. PT Short Term Goals Short Term Goals Time Frame: Dec 16, 2017 Gait (FIM): 1 Gait Distance Comment: 20' Gait Level of Assist: 4 Gait Assistive Device: FWW PT [place] Tender Helper Goals Fdc Goals PT Fdc Goals Time Frame: Dec 30, 2017 Transfers (B,C,W/C) (FIM): 5 Sit to Lying (QC): 4 Lying-Sitting on Side/Bed(QC): 4 Sit to Stand (QC): 4 Rollin Roll Left to Right (QC): 4 Chair/Woh-ir-Qrhoe Xfer(QC): 4 Car Transfer (QC): 4 Gait (FIM): 2 Distance: 50' Walk 10 feet (QC): 4 Walk 10ft-Uneven Surface(QC): 4 Walk 50ft with 2 Turns (QC): 4 Gait Level of Assist: 5 Gait Assistive Device: FWW Stairs (FIM): 2 # of Steps: 4 1 Step (curb) (QC): 4 4 Steps (QC): 4 Stairs Level Of Assist: 4 PT Plan Problem List Problem List: Activity Tolerance, Functional Strength, Safety, Gait, Transfer Treatment/Plan Treatment Plan: Continue Plan of Care Treatment Plan: Bed Mobility, Concurrent Therapy, Education, Functional Activity Monique, Functional Strength, Group Therapy, Gait, Safety, Therapeutic Exercise, Transfers Treatment Duration: Dec 30, 2017 Frequency: At least 5 of 7 days/Wk (IRF) Estimated Hrs Per Day: 1.5 hours per day Patient and/or Family Agrees t: Yes Safety Risks/Education Patient Education: Gait Training, Transfer Techniques, Correct Positioning, Safety Issues Teaching Recipient: Patient Teaching Methods: Discussion Response to Teaching: Verbalize Understanding Time/GCodes Time In: 1000 Time Out: 1115 Total Billed Treatment Time: 75 Total Billed Treatment 1, FA x2 (30m), EX x2 (30m) & GT (15m) G Codes Necessary: RYAN Jauregui TRAFFIC CONTROL OFFICER Dec 15, 2017 11:19
[2017-12-15] MEDS ORDERED: FUROSEMIDE 40 MG/4 ML INJ (LASIX) IVP NR (11:31)
--- NOTE | 2017-12-15 11:51 | Cardiology Progress Note ---
Subjective Date Seen by Provider: Dec 15, 2017 Time Seen by Provider: 11:48 Subjective/Events-last exam Patient is in bed, still having some dyspnea, no chest pain Review of Systems General: No Chills, No Night Sweats, No Fatigue, No Malaise, No Appetite, No Other HEENT: No Head Aches, No Visual Changes, No Eye Pain, No Ear Pain, No Dysphasia , No Sinus Congestion, No Post Nasal Drip, No Sore Throat, No Other Pulmonary: Dyspnea; No Cough, No Pleuritic Chest Pain, No Other Cardiovascular: No: Chest Pain, Palpitations, Orthopnea, Paroxysmal Noc. Dyspnea, Edema, Lt Headedness, Other Objective-Cardiology Exam Last Set of Vital Signs Vital Signs 12/14/17 12/15/17 21:00 09:35 Temp 99.8 Pulse 89 Resp 20 B/P (MAP) 137/70 (92) Pulse Ox 97 O2 Delivery Nasal Cannula O2 Flow Rate 2.00 FiO2 94 Capillary Refill : I&O Intake and Output 12/15/17 00:00 Intake Total 1250 ml Balance 1250 ml Intake Oral 1250 ml # Voids 11 # Bowel Movements 1 General: Alert, Oriented X3, Cooperative, No Acute Distress HEENT: Atraumatic, PERRLA, EOMI, Mucous Memb Moist/[place], Other (02 by N/C in place) Neck: Supple, No JVD Lungs: Normal Air Movement, Other (wet rales at the base) Heart: Regular Rate, Normal S1, Normal S2, Other (systolic murmur at LSB) Abdomen: Normal Bowel Sounds, Soft, No Tenderness Extremities: No Clubbing, Other (+ 2 edema) Skin: No Rashes Neuro: Normal Gait, Normal Speech Psych/Mental Status: Mental Status NL Results Lab Laboratory Tests 12/15/17 06:26 A/P-Cardiology Admission Diagnosis Anemia Edema Pneumonia Hypertension Assessment/Plan Peripheral edema, Congestive heart failure, I will give additional lasix IV today and start daily lasix and monitor tolerance and response Hypertension, continue current medication monitor blood pressure Pneumonia with sepsis - management per Medical and Pulmonary Services Hemoptysis, likely due to pneumonia, now resolved Blood clots in stools, suggestive of GI bleed or swallowed blood from hemoptysis. W/u for this is with the Med Svdimitry PAF, first documented on tele strips at Card[facility]hab in early 2017. Currently in NSR H/o ischemic cm. LVEF on 02/18/17 was 35%. Echo of 12/03/17: LVEF 60-65%, LVH, grade 1 rehman dysfunction, mild to mod MR, mod to severe with valve area approx 1.1 sq cm and gradient approx 25 mmHg, PASP 25 mmHg, BNP is elevated, started on Lasix CAD. S/p prox LAD stenting by Dr Obrien at [facility] on 02/20/17: Promus 2.5x24. Cath on 02/18/17 prior to cor stenting showed dual LAD, one of which was proximally occluded and the other was severely diseased. Rest of the cors had mod dz H/o ischemic cardiomyopathy. MPI of 01/12/17: anteroapical infarction w/o significant ischemia; LVEF 39% Dizziness and vertigo, improved after reduction of anti-htn and Invokana treatment in early Apr 2015. MRI head on 05/10/15 (Dr Mariano) did not show lesions other than possibility of chronic microvascular disease Valvular heart disease. Cath of 02/18/17 showed mod MR and a gradient across AoV of 25-30 mmHg. Mod with valve area 1.4 cm sq and mean gradient across aortic valve of 23 mmHg on echo of 01/08/17. Subsequent echo as noted above DM II, followed by primary care team CKD stage 3, likely diabetic nephropathy. eGFR on 05/25/17 is 44 Hyperlipidemia, but has intolerance to statins (severe joint pains) Hypothyroidism, treated with thyroid replacement therapy. TSH normal (2.19) on Bilateral leg and foot discomfort which has been diagnosed as neuropathy. Normal bilat EDDY in June 2014 Mild bilat carotid arterial disease on carotid u/s of 06/08/17 Abn ECG. ECG of 05/13/17: NSR, old ASMI H/o surgeries: S/p hysterectomy w/o oophorectomy; S/p bilateral knee replacement ; H/o R rotator cuff surgery Clinical Quality Measures DVT/VTE Risk/Contraindication: Risk Factor Score Per Nursin RFS Level Per Nursing on Admit: 3=High KATIE COLEMAN MD Dec 15, 2017 11:51 am
--- NOTE | 2017-12-15 14:17 | Occupational Ther Daily Note ---
OT Current Status-Daily Note Subjective Pt seen in room, up in recliner, agreeable to OT. No pain mentioned. Mental Status/Objective Functional [place] Measure 0=Not Assessed/NA 4=Minimal Assistance 1=Total Assistance 5=Supervision or Setup 2=Maximal Assistance 6=Modified [place] 3=Moderate Assistance 7=Complete [place] ADL-Treatment Pt reported that she would need to go to the bathroom before going to the gym. While OT was looking for portable oxygen tank in room, pt very quickly took oxygen off, got up from recliner, walked across the room and reached for FWW, then started to walk to the bathroom, with no warning. She said that she didn't realize that she needed to go so urgently but she did not ask for help either. Pt able to get on/off toilet with SBA, FWW, grab bar and managed clothing and hygiene. She also stopped at the sink to wash her hands, SBA, FWW. Pt returned to recliner with SBA, FWW, O2 in place. She was able to recall two of 5 different UE exercises with yellow theraband. Completed 10 reps of each UE exercise, with occasional skilled cues to do them correctly. To increase overall activity tolerance and strengthen arms to help with transfers. Pt left up in recliner, chair alarm on, all needs met. Functional [place] Measure 0=Not Assessed/NA 4=Minimal Assistance 1=Total Assistance 5=Supervision or Setup 2=Maximal Assistance 6=Modified [place] 3=Moderate Assistance 7=Complete IndependenceIRFPAI Quality Coding Scale 6 Independent with activity with or without an assistive device 5 Patient requires set up or clean up by helper. Patient completes activity by themselves 4 Supervision or touching assist (CGA). [place] provide cues , steadying assist 3 The helper provides less than half the effort to complete the activity 2 The helper provides more than half the effort to complete the activity 1 Dependent. The helper does all the effort to complete an activity 7 Patient refused to complete or attempt activity 9 The patient did not perform the activity before the current illness or injury 88 Not attempted due to Medical conditions or safety concerns Grooming (FIM): 5 Toileting (FIM): 5 Toilet/Commode Transfer (FIM): 5 Education OT Patient Education: Exercise program, Progress toward Goal/Update tx plan, Purpose of tx/functional activities, Safety issues Teaching Recipient: Patient Teaching Methods: Demonstration, Discussion Response to Teaching: Verbalize Understanding, Return Demonstration, Reinforcement Needed OT Short Term Goals Short Term Goals Time Frame: Dec 16, 2017 Eating(FIM): 7 Toileting(FIM): 5 Toilet/Commode Transfer(FIM): 5 Comprehension(FIM): 7 Expression(FIM): 7 Social Interaction(FIM): 7 Problem Solving(FIM): 5 Memory(FIM): 5 Additional Short Term Goals: 1-Demonstrate ADL Tasks, 2-Verbalize Understanding , 3-ImproveStrength/Monique 1=Demonstrate adherence to instructed precautions during ADL tasks. 2=Patient will verbalize/demonstrate understanding of assistive devices/ modifications for ADL. 3=Patient will improve strength/tolerance for activity to enable patient to perform ADL's. OT Pinion And Wheel Truer Goals Pinion And Wheel Truer Goals Time Frame: Dec 30, 2017 Eating (FIM): 7 Eating (QC): 6 Groomin Oral Hygiene (QC): 6 Bathing(FIM): 6 Shower/Bathe Self (QC): 6 Upper Body Dressing(FIM): 6 Upper Body Dressing (QC): 6 Lower Body Dressing(FIM): 6 Lower Body Dressing (QC): 6 On/Off Footwear (QC): 6 Toileting(FIM): 6 Toileting Hygiene (QC): 6 Toilet/Commode Transfer(FIM): 6 Toilet/Commode Transfer (QC): 6 Shower Transfer(FIM): 6 Comprehension(FIM): 7 Expression (FIM): 7 Social Interaction(FIM): 7 Problem Solving(FIM): 6 Memory(FIM): 6 Additional Goals: 1-Demonstrate ADL Tasks, 2-Verbalize Understanding, 3- ImproveStrength/Monique 1=Demonstrate adherence to instructed precautions during ADL tasks. 2=Patient will verbalize/demonstrate understanding of assistive devices/ modifications for ADL. 3=Patient will improve strength/tolerance for activity to enable patient to perform ADL's. OT Education/Plan Problem List/Assessment Pt would benefit from skilled OT to increase her independence in basic self care to allow her to safely return home to live with her Discharge Recommendations Plan/Recommendations: Continue POC Treatment Plan/Plan of Care Patient would benefit from OT for education, treatment and training to promote independence in ADL's, mobility, safety and/or upper extremity function for ADL' s. Plan of Care: ADL Retraining, Functional Mobility, Group Exercise/Act as Ind ( educaiton, exercise, activity tolerance, functional activities, memory, socialization), UE Funct Exercise/Act, UE Neuromus Re-Ed/Coord Treatment Duration: Dec 30, 2017 Frequency: At least 5 of 7 days/Wk (IRF) Estimated Hrs Per Day: 1.5 hours per day Agreement: Yes Rehab Potential: Good Time/GCodes Start Time: 12:30 Stop Time: 12:55 Total Time Billed (hr/min): 25 Billed Treatment Time visit, 15 minutes ADL, 10 minutes exercise RANCHO QUINTANA OT Dec 15, 2017 14:17
--- NOTE | 2017-12-15 15:26 | Speech Therapy Daily Note ---
Speech Daily Progress Note Subjective Date Seen by Provider: Dec 15, 2017 Time Seen by Provider: 09:30 Pt up in chair. Pain Numeric Pain Scale: 0-No Pain Objective Memory - Picture recall after 20 minutes was 90% accurate with min assist x 1. Problem Solving: Add to the category. Pt given 3 words that had a common thread and she was to provide an additional example. Pt had difficulty with this task and was 75% accurate with min to mod assist. Assessment Assessment Current Status: Good Progress Treatment Plan Continue Plan of Care Communication Comprehension: 7 Expression: 7 Social Cognition Social Interaction: 7 Problem Solvin Memory: 4 Speech Short Term Goals Short Term Goals Short Term Goals Pt will complete problem solving tasks with at least 85% accuracy and min assist. Pt will complete memory activities with at least 80% accuracy and min assist. Time Frame-ST week Comprehension: 7 Expression: 7 Social Interaction: 7 Problem Solvin Memory: 5 Speech Custodial Goals Custodial Goals Pt will demonstrate functional cognition for safety and maximum independence for the home setting. Comprehension: 7 Expression: 7 Social Interaction: 7 Problem Solvin Memory: 6 Speech-Plan Patient/Family Goals Patient/Family Goals: to return home Treatment Plan Speech Therapy Treatment Plan: Continue Plan of Care Pt cooperative in ST Treatment Duration: Dec 21, 2017 Frequency: 5 times per week Estimated Hrs Per Day: .5 hour per day Rehab Potential: Good Pt/Family Agrees to Plan: Yes Safety Risks/Education Teaching Recipient: Patient Teaching Methods: Discussion Response to Teaching: Verbalize Understanding Time Speech Therapy Time In: 09:30 Speech Therapy Time Out: 10:00 Total Billed Time: 30 Billed Treatment Time 1, SLTS No ELIGIO BLUE Dec 15, 2017 15:25
[2017-12-15 18:08] VITALS: BP 114/65
[2017-12-15] MEDS: diphenhydrAMINE 25 MG TAB (BENADRYL) PO SCH (21:03)
[2017-12-15] MEDS: eZETimibe 10 MG (ZETIA) TABLET PO SCH (21:03)
[2017-12-15] MEDS: ACETAMINOPHEN 500 MG TAB (TYLENOL) PO SCH (21:03)
[2017-12-16] MEDS: NYSTATIN ORAL SUSP 5 ML UDC PO SCH ×5 (00:13→23:38)
[2017-12-16] MEDS: inSUlin ASPART (NovoLOG) 1 UNIT/0.01 ML (CHARGE PER UNIT) SC SCH ×4 (05:12→20:53)
[2017-12-16 05:19] VITALS: BP 145/73
[2017-12-16 05:47] LABS: HEMOGLOBIN 9.1 G/DL (11.5-16.0); MEAN PLATELET VOLUME 10.1 FL (7.4-10.4); RED BLOOD COUNT 3.11 10^6/uL (4.35-5.85); RED CELL DISTRIBUTION WIDTH 15.1 % (10.0-14.5); WHITE BLOOD COUNT 5.8 10^3/uL (4.3-11.0)
[2017-12-16] MEDS: PANTOPRAZOLE 40 MG (PROTONIX) TAB PO SCH (06:03)
[2017-12-16] MEDS: metFORMIN 500 MG (GLUCOPHAGE) TAB PO SCH ×3 (06:03→20:58)
[2017-12-16] MEDS: LEVOTHYROXINE 50 MCG (LEVOTHROID) TAB PO SCH (06:03)
[2017-12-16] MEDS: RT-ALBUTEROL/IPRATROPIUM 3 ML (DUONEB) VIAL INH SCH ×3 (06:17→19:03)
[2017-12-16 06:48] LABS: CALCIUM 8.8 MG/DL (8.5-10.1); CREATININE SERUM 1.01 MG/DL (0.60-1.30); MAGNESIUM 1.8 MG/DL (1.8-2.4); POTASSIUM 3.8 MMOL/L (3.6-5.0)
[2017-12-16] MEDS: APIXABAN 2.5 MG (ELIQUIS) TABLET PO SCH ×2 (08:30→20:58)
[2017-12-16] MEDS: MAGNESIUM OXIDE (MAG-OX)400 MG TAB PO SCH ×2 (08:30→17:00)
[2017-12-16 08:31] VITALS: BP 139/67
[2017-12-16] MEDS: DIGOXIN 0.125 MG (LANOXIN) TAB PO SCH (08:31)
[2017-12-16] MEDS: FUROSEMIDE 40 MG (LASIX) TAB PO SCH (08:31)
[2017-12-16] MEDS: ASPIRIN 81 MG CHEW (CHILDREN'S ASA) PO SCH (08:36)
[2017-12-16] MEDS: SACUBITRIL/VALSARTAN 24/26 MG (ENTRESTO) TABLET PO SCH ×2 (08:38→20:58)
[2017-12-16] MEDS: OMEGA 3 (FISH OIL) 1000 MG CAP PO SCH (08:39)
[2017-12-16] MEDS: GABAPENTIN 600 MG (NEURONTIN) TAB PO SCH ×3 (08:39→20:58)
[2017-12-16] MEDS: amLODIPine 5 MG (NORVASC) TAB PO SCH (08:40)
[2017-12-16] MEDS: meTOprolol SUCCINATE 100 MG (TOPROL XL) TAB PO SCH (08:40)
[2017-12-16] MEDS: inSUlin DETERMIR 1 UNIT/0.01 ML (LEVEMIR) CHARGE PER UNIT SQ SCH (08:41)
--- NOTE | 2017-12-16 09:44 | Occupational Ther Daily Note ---
OT Current Status-Daily Note Subjective Pt seen in room, up in recliner, agreeable to OT. No pain mentioned. Appearance Alert, cooperative Mental Status/Objective Functional [place] Measure 0=Not Assessed/NA 4=Minimal Assistance 1=Total Assistance 5=Supervision or Setup 2=Maximal Assistance 6=Modified [place] 3=Moderate Assistance 7=Complete [place] ADL-Treatment Pt did not want to shower today but agreed to changing clothes and grooming. O2 in place but OK with nursing to try activity without. Pt got up from recliner, cues for hand placement, walked to bathroom SBA, FWW, toileted with SBA, dressed with setup/SBA, groomed SBA, FWW at sink and then walked back to recliner. Pt educ on pacing herself throughout activities. O2 sat 97% on room air. Functional [place] Measure 0=Not Assessed/NA 4=Minimal Assistance 1=Total Assistance 5=Supervision or Setup 2=Maximal Assistance 6=Modified [place] 3=Moderate Assistance 7=Complete IndependenceIRFPAI Quality Coding Scale 6 Independent with activity with or without an assistive device 5 Patient requires set up or clean up by helper. Patient completes activity by themselves 4 Supervision or touching assist (CGA). [place] provide cues , steadying assist 3 The helper provides less than half the effort to complete the activity 2 The helper provides more than half the effort to complete the activity 1 Dependent. The helper does all the effort to complete an activity 7 Patient refused to complete or attempt activity 9 The patient did not perform the activity before the current illness or injury 88 Not attempted due to Medical conditions or safety concerns Grooming (FIM): 5 (SBA standing at sink with FWW for balance. brushed teeth, combe dhair, washed hands) Upper Body (FIM): 5 (Dressed upper body with setup. No difficulty with buttons) Lower Body Dressing (FIM): 5 (SBA to don pants and underwear. TEDs and slipper socks already on. FWW) Toileting (FIM): 5 (SBA to manage clothing and hygiene, FWW, grab bar) Toilet/Commode Transfer (FIM): 5 (SBA, FWW, on and off tall toilet, grab bar) Other Treatment Pt walked to gym with SBA, FWW, cues for hand placement for sit to stand. In gym did 14 min bilat UE exercise on arm bike set at 15-20W resistance, with no recovery breaks. O2 sat 95%. Also did nuts/bolts activity with no recovery breaks and no SOB. To increase activity tolerance and decrease dependence on O2. Pt walked back to room SBA, FWW and was left up in recliner, chair alarm on , all needs met. O2 available. Education OT Patient Education: Progress toward Goal/Update tx plan, Purpose of tx/ functional activities, Safety issues, Transfer techniques Teaching Recipient: Patient Teaching Methods: Demonstration, Discussion Response to Teaching: Verbalize Understanding, Return Demonstration, Reinforcement Needed OT Short Term Goals Short Term Goals Time Frame: Dec 16, 2017 Eating(FIM): 7 Toileting(FIM): 5 Toilet/Commode Transfer(FIM): 5 Comprehension(FIM): 7 Expression(FIM): 7 Social Interaction(FIM): 7 Problem Solving(FIM): 5 Memory(FIM): 5 Additional Short Term Goals: 1-Demonstrate ADL Tasks, 2-Verbalize Understanding , 3-ImproveStrength/Monique 1=Demonstrate adherence to instructed precautions during ADL tasks. 2=Patient will verbalize/demonstrate understanding of assistive devices/ modifications for ADL. 3=Patient will improve strength/tolerance for activity to enable patient to perform ADL's. OT Care Home Goals Retirement Plan Specialist Goals Time Frame: Dec 30, 2017 Eating (FIM): 7 Eating (QC): 6 Groomin Oral Hygiene (QC): 6 Bathing(FIM): 6 Shower/Bathe Self (QC): 6 Upper Body Dressing(FIM): 6 Upper Body Dressing (QC): 6 Lower Body Dressing(FIM): 6 Lower Body Dressing (QC): 6 On/Off Footwear (QC): 6 Toileting(FIM): 6 Toileting Hygiene (QC): 6 Toilet/Commode Transfer(FIM): 6 Toilet/Commode Transfer (QC): 6 Shower Transfer(FIM): 6 Comprehension(FIM): 7 Expression (FIM): 7 Social Interaction(FIM): 7 Problem Solving(FIM): 6 Memory(FIM): 6 Additional Goals: 1-Demonstrate ADL Tasks, 2-Verbalize Understanding, 3- ImproveStrength/Monique 1=Demonstrate adherence to instructed precautions during ADL tasks. 2=Patient will verbalize/demonstrate understanding of assistive devices/ modifications for ADL. 3=Patient will improve strength/tolerance for activity to enable patient to perform ADL's. OT Education/Plan Problem List/Assessment Pt would benefit from skilled OT to increase her independence in basic self care to allow her to safely return home to live with her Discharge Recommendations Plan/Recommendations: Continue POC Treatment Plan/Plan of Care Patient would benefit from OT for education, treatment and training to promote independence in ADL's, mobility, safety and/or upper extremity function for ADL' s. Plan of Care: ADL Retraining, Functional Mobility, Group Exercise/Act as Ind ( educaiton, exercise, activity tolerance, functional activities, memory, socialization), UE Funct Exercise/Act, UE Neuromus Re-Ed/Coord Treatment Duration: Dec 30, 2017 Frequency: At least 5 of 7 days/Wk (IRF) Estimated Hrs Per Day: 1.5 hours per day Agreement: Yes Rehab Potential: Good Time/GCodes Start Time: 08:30 Stop Time: 09:30 Total Time Billed (hr/min): 60 Billed Treatment Time visit, 25 minutes ADL, 35 minutes exercise RANCHO QUINTANA OT Dec 16, 2017 09:44
[2017-12-16] MEDS: IRON SUCROSE 200 MG/10 ML (VENOFER) VIAL IV SCH (10:09)
--- NOTE | 2017-12-16 11:32 | Physical Therapy Daily Note ---
PT Daily Note-Current Subjective Pt sitting in recliner upon arrival. Pt agrees to PT. Pt receives Iron from Nurse through IV before start of tx. Pain Location: No Pain Reported Mental Status Patient Orientation: Person, Place, Time, Situation Pt is off O2 right now & staying at 95%. Transfers Functional [place] Measure 0=Not Assessed/NA 4=Minimal Assistance 1=Total Assistance 5=Supervision or Setup 2=Maximal Assistance 6=Modified [place] 3=Moderate Assistance 7=Complete IndependenceIRFPAI Quality Coding Scale 6 Independent with activity with or without an assistive device 5 Patient requires set up or clean up by helper. Patient completes activity by themselves 4 Supervision or touching assist (CGA). [place] provide cues , steadying assist 3 The helper provides less than half the effort to complete the activity 2 The helper provides more than half the effort to complete the activity 1 Dependent. The helper does all the effort to complete an activity 7 Patient refused to complete or attempt activity 9 The patient did not perform the activity before the current illness or injury 88 Not attempted due to Medical conditions or safety concerns Scootin Sit to/from Stand: 5 Sit to Stand (QC): 5 Weight Bearing Right Lower Extremity: Right Weight Bearing/Tolerated Left Lower Extremity: Left Weight Bearing/Tolerated Gait Training Does the Patient Walk?: Yes Distance (FIM): 3=150 ft Distance: 300' Walk 10 feet (QC): 5 Walk 50 ft with 2 Turns(QC): 5 Walk 150 ft (QC): 5 Gait Level of Assist: 5 Gait Persons Needed: 1 Gait Assistive Device: FWW MANAGER INCOME TAX assists pt with raising height on FWW to allow pt to stand taller. Pt walks with stiff gait. Wheelchair Training Does the Pt Use a Wheelchair?: No Stair Training Stair Training: Handrails/: 2 handrails #of Steps: 8 1 Step (curb) (QC): 4 4 Steps (QC): 4 Stairs: Pattern: Reciprocal Level of Assist: 4 Exercises Seated Therapy Exercises: Ankle pumps, Long arc quads, Hip flexion, Kicking activity, Hip abd/add Seated Reps: 20 NuStep Minutes: 15 NuStep Workload: 5 Treatments Pt uses restroom before starting tx. Pt transfers from recliner at [facility] using FWW. Pt ambulates in hallway using FWW at [facility]. Pt completes Seated Ex in chair as well as uses NuStep for 15m at [facility] 5 for increasing strengthening & activity tolerance. Pt completes 2 sets of 4 steps. Pt has to return to room once during tx to use restroom. Pt resting in recliner at end of tx with all needs met. Assessment Current Status: Good Progress Pt needs VC at times for hand placement and sequencing. PT Short Term Goals Short Term Goals Time Frame: Dec 16, 2017 Gait (FIM): 1 Gait Distance Comment: 20' Gait Level of Assist: 4 Gait Assistive Device: FWW PT Racing Mechanic Goals Usp Goals PT [facility]sp Goals Time Frame: Dec 30, 2017 Transfers (B,C,W/C) (FIM): 5 Sit to Lying (QC): 4 Lying-Sitting on Side/Bed(QC): 4 Sit to Stand (QC): 4 Rollin Roll Left to Right (QC): 4 Chair/Bnt-df-Rwgnm Xfer(QC): 4 Car Transfer (QC): 4 Gait (FIM): 2 Distance: 50' Walk 10 feet (QC): 4 Walk 10ft-Uneven Surface(QC): 4 Walk 50ft with 2 Turns (QC): 4 Gait Level of Assist: 5 Gait Assistive Device: FWW Stairs (FIM): 2 # of Steps: 4 1 Step (curb) (QC): 4 4 Steps (QC): 4 Stairs Level Of Assist: 4 PT Plan Problem List Problem List: Activity Tolerance, Functional Strength, Safety, Transfer Treatment/Plan Treatment Plan: Continue Plan of Care Treatment Plan: Bed Mobility, Concurrent Therapy, Education, Functional Activity Monique, Functional Strength, Group Therapy, Gait, Safety, Therapeutic Exercise, Transfers Treatment Duration: Dec 30, 2017 Frequency: At least 5 of 7 days/Wk (IRF) Estimated Hrs Per Day: 1.5 hours per day Patient and/or Family Agrees t: Yes Safety Risks/Education Patient Education: Gait Training, Transfer Techniques, Steps, Correct Positioning, Safety Issues Teaching Recipient: Patient Teaching Methods: Discussion Response to Teaching: Verbalize Understanding Time/GCodes Time In: 945 Time Out: 1115 Total Billed Treatment Time: 90 Total Billed Treatment 1, GT x2 (30m), FA x2 (30m) & EX x2 (30m) G Codes Necessary: RYAN Jauregui MANAGER INCOME TAX Dec 16, 2017 11:32
--- NOTE | 2017-12-16 13:07 | Occupational Ther Daily Note ---
OT Current Status-Daily Note Subjective Pt seen in room, up in recliner, agreeable to OT. No pain mentioned. Appearance Alert, cooperative Mental Status/Objective Functional [place] Measure 0=Not Assessed/NA 4=Minimal Assistance 1=Total Assistance 5=Supervision or Setup 2=Maximal Assistance 6=Modified [place] 3=Moderate Assistance 7=Complete [place] ADL-Treatment Pt education and demonstration on use of dressing stick to take socks off and use of soft sock aid to don socks, because prolonged bending over causes SOA. Return demo, with some skilled cues. Also helps with energy conservation. Pt also did 15 reps bilat UE exercise with yellow theraband, recalling 4 of 5 exercises. Occasional skilled cues to do them correctly. To strengthen arms to help with transfers and overall activity tolerance. Pt left up in recliner, all needs met. Functional [place] Measure 0=Not Assessed/NA 4=Minimal Assistance 1=Total Assistance 5=Supervision or Setup 2=Maximal Assistance 6=Modified [place] 3=Moderate Assistance 7=Complete IndependenceIRFPAI Quality Coding Scale 6 Independent with activity with or without an assistive device 5 Patient requires set up or clean up by helper. Patient completes activity by themselves 4 Supervision or touching assist (CGA). [place] provide cues , steadying assist 3 The helper provides less than half the effort to complete the activity 2 The helper provides more than half the effort to complete the activity 1 Dependent. The helper does all the effort to complete an activity 7 Patient refused to complete or attempt activity 9 The patient did not perform the activity before the current illness or injury 88 Not attempted due to Medical conditions or safety concerns Education OT Patient Education: Exercise program, Modified ADL techniques, Purpose of tx/ functional activities, Use of adapted equipment Teaching Recipient: Patient Teaching Methods: Demonstration, Discussion Response to Teaching: Verbalize Understanding, Return Demonstration, Reinforcement Needed OT Short Term Goals Short Term Goals Time Frame: Dec 16, 2017 Eating(FIM): 7 Toileting(FIM): 5 Toilet/Commode Transfer(FIM): 5 Comprehension(FIM): 7 Expression(FIM): 7 Social Interaction(FIM): 7 Problem Solving(FIM): 5 Memory(FIM): 5 Additional Short Term Goals: 1-Demonstrate ADL Tasks, 2-Verbalize Understanding , 3-ImproveStrength/Monique 1=Demonstrate adherence to instructed precautions during ADL tasks. 2=Patient will verbalize/demonstrate understanding of assistive devices/ modifications for ADL. 3=Patient will improve strength/tolerance for activity to enable patient to perform ADL's. OT Half-Way Goals Half-Way Goals Time Frame: Dec 30, 2017 Eating (FIM): 7 Eating (QC): 6 Groomin Oral Hygiene (QC): 6 Bathing(FIM): 6 Shower/Bathe Self (QC): 6 Upper Body Dressing(FIM): 6 Upper Body Dressing (QC): 6 Lower Body Dressing(FIM): 6 Lower Body Dressing (QC): 6 On/Off Footwear (QC): 6 Toileting(FIM): 6 Toileting Hygiene (QC): 6 Toilet/Commode Transfer(FIM): 6 Toilet/Commode Transfer (QC): 6 Shower Transfer(FIM): 6 Comprehension(FIM): 7 Expression (FIM): 7 Social Interaction(FIM): 7 Problem Solving(FIM): 6 Memory(FIM): 6 Additional Goals: 1-Demonstrate ADL Tasks, 2-Verbalize Understanding, 3- ImproveStrength/Monique 1=Demonstrate adherence to instructed precautions during ADL tasks. 2=Patient will verbalize/demonstrate understanding of assistive devices/ modifications for ADL. 3=Patient will improve strength/tolerance for activity to enable patient to perform ADL's. OT Education/Plan Problem List/Assessment Pt would benefit from skilled OT to increase her independence in basic self care to allow her to safely return home to live with her Discharge Recommendations Plan/Recommendations: Continue POC Treatment Plan/Plan of Care Patient would benefit from OT for education, treatment and training to promote independence in ADL's, mobility, safety and/or upper extremity function for ADL' s. Plan of Care: ADL Retraining, Functional Mobility, Group Exercise/Act as Ind ( educaiton, exercise, activity tolerance, functional activities, memory, socialization), UE Funct Exercise/Act, UE Neuromus Re-Ed/Coord Treatment Duration: Dec 30, 2017 Frequency: At least 5 of 7 days/Wk (IRF) Estimated Hrs Per Day: 1.5 hours per day Agreement: Yes Rehab Potential: Good Time/GCodes Start Time: 12:30 Stop Time: 13:00 Total Time Billed (hr/min): 30 Billed Treatment Time visit, 15 minutes ADL, 15 minutes exercise RANCHO QUINTANA OT Dec 16, 2017 13:07
--- NOTE | 2017-12-16 14:02 | Cardiology Progress Note ---
Subjective Date Seen by Provider: Dec 16, 2017 Time Seen by Provider: 14:01 Subjective/Events-last exam Patient is sitting in a chair feeling well. No new complaint Review of Systems General: No Chills, No Night Sweats, No Fatigue, No Malaise, No Appetite, No Other HEENT: No Head Aches, No Visual Changes, No Eye Pain, No Ear Pain, No Dysphasia , No Sinus Congestion, No Post Nasal Drip, No Sore Throat, No Other Pulmonary: No Dyspnea, No Cough, No Pleuritic Chest Pain, No Other Cardiovascular: No: Chest Pain, Palpitations, Orthopnea, Paroxysmal Noc. Dyspnea, Edema, Lt Headedness, Other Objective-Cardiology Exam Last Set of Vital Signs Vital Signs 12/14/17 12/16/17 12/16/17 12/16/17 21:00 05:19 08:31 13:00 Temp 98.4 Pulse 72 Resp 20 B/P (MAP) 139/67 (91) Pulse Ox 95 O2 Delivery Nasal Cannula O2 Flow Rate 2.00 FiO2 94 Capillary Refill : I&O Intake and Output 12/16/17 00:00 Intake Total 1450 ml Balance 1450 ml Intake Oral 1450 ml # Voids 14 # Bowel Movements 1 General: Alert, Oriented X3, Cooperative, No Acute Distress HEENT: Atraumatic, PERRLA, EOMI, Mucous Memb Moist/[place], Other (02 by N/C in place) Neck: Supple, No JVD Lungs: Normal Air Movement, Other (wet rales at the base) Heart: Regular Rate, Normal S1, Normal S2, Other (systolic murmur at LSB) Abdomen: Normal Bowel Sounds, Soft, No Tenderness Extremities: No Clubbing, Other (+ 2 edema) Skin: No Rashes Neuro: Normal Gait, Normal Speech Psych/Mental Status: Mental Status NL Results Lab Laboratory Tests 12/16/17 05:35 A/P-Cardiology Admission Diagnosis Anemia Edema Pneumonia Hypertension Assessment/Plan Peripheral edema, Congestive heart failure, maintained on daily Lasix at this time, continue to monitor Hypertension, continue current medication monitor blood pressure Pneumonia with sepsis - management per Medical and Pulmonary Services Hemoptysis, likely due to pneumonia, now resolved Blood clots in stools, suggestive of GI bleed or swallowed blood from hemoptysis. W/u for this is with the Med [facility] PAF, first documented on tele strips at [facility] in early 2016. Currently in NSR H/o ischemic cm. LVEF on 02/18/17 was 35%. Echo of 12/03/17: LVEF 60-65%, LVH, grade 1 rehman dysfunction, mild to mod MR, mod to severe with valve area approx 1.1 sq cm and gradient approx 25 mmHg, PASP 25 mmHg, BNP is elevated, started on Lasix CAD. S/p prox LAD stenting by Dr Obrien at [facility] on 02/20/17: Promus 2.5x24. Cath on 02/18/17 prior to cor stenting showed dual LAD, one of which was proximally occluded and the other was severely diseased. Rest of the cors had mod dz H/o ischemic cardiomyopathy. MPI of 01/12/17: anteroapical infarction w/o significant ischemia; LVEF 39% Dizziness and vertigo, improved after reduction of anti-htn and Invokana treatment in early Apr 2015. MRI head on 05/10/15 (Dr Mariano) did not show lesions other than possibility of chronic microvascular disease Valvular heart disease. Cath of 02/18/17 showed mod MR and a gradient across AoV of 25-30 mmHg. Mod with valve area 1.4 cm sq and mean gradient across aortic valve of 23 mmHg on echo of 01/08/17. Subsequent echo as noted above DM II, followed by primary care team CKD stage 3, likely diabetic nephropathy. eGFR on 05/25/17 is 44 Hyperlipidemia, but has intolerance to statins (severe joint pains) Hypothyroidism, treated with thyroid replacement therapy. TSH normal (2.19) on Bilateral leg and foot discomfort which has been diagnosed as neuropathy. Normal bilat EDDY in June 2014 Mild bilat carotid arterial disease on carotid u/s of 06/08/17 Abn ECG. ECG of 05/13/17: NSR, old ASMI H/o surgeries: S/p hysterectomy w/o oophorectomy; S/p bilateral knee replacement ; H/o R rotator cuff surgery Clinical Quality Measures DVT/VTE Risk/Contraindication: Risk Factor Score Per Nursin RFS Level Per Nursing on Admit: 3=High KATIE COLEMAN MD Dec 16, 2017 14:02
[2017-12-16 20:56] VITALS: BP 126/73
[2017-12-16] MEDS: diphenhydrAMINE 25 MG TAB (BENADRYL) PO SCH (20:58)
[2017-12-16] MEDS: ACETAMINOPHEN 500 MG TAB (TYLENOL) PO SCH (20:58)
[2017-12-16] MEDS: eZETimibe 10 MG (ZETIA) TABLET PO SCH (20:58)
[2017-12-17 05:12] VITALS: BP 145/74
[2017-12-17] MEDS: inSUlin ASPART (NovoLOG) 1 UNIT/0.01 ML (CHARGE PER UNIT) SC SCH ×4 (05:17→20:33)
[2017-12-17] MEDS: PANTOPRAZOLE 40 MG (PROTONIX) TAB PO SCH (06:07)
[2017-12-17] MEDS: LEVOTHYROXINE 50 MCG (LEVOTHROID) TAB PO SCH (06:07)
[2017-12-17] MEDS: NYSTATIN ORAL SUSP 5 ML UDC PO SCH ×3 (06:07→16:57)
[2017-12-17] MEDS: metFORMIN 500 MG (GLUCOPHAGE) TAB PO SCH ×3 (06:07→20:23)
[2017-12-17] MEDS: RT-ALBUTEROL/IPRATROPIUM 3 ML (DUONEB) VIAL INH SCH (07:05)
[2017-12-17] MEDS: inSUlin DETERMIR 1 UNIT/0.01 ML (LEVEMIR) CHARGE PER UNIT SQ SCH (08:19)
[2017-12-17] MEDS: FUROSEMIDE 40 MG (LASIX) TAB PO SCH (08:19)
[2017-12-17] MEDS: DIGOXIN 0.125 MG (LANOXIN) TAB PO SCH (08:19)
[2017-12-17] MEDS: SACUBITRIL/VALSARTAN 24/26 MG (ENTRESTO) TABLET PO SCH ×2 (08:19→20:23)
[2017-12-17] MEDS: GABAPENTIN 600 MG (NEURONTIN) TAB PO SCH ×3 (08:19→20:24)
[2017-12-17] MEDS: APIXABAN 2.5 MG (ELIQUIS) TABLET PO SCH ×2 (08:19→20:23)
[2017-12-17] MEDS: OMEGA 3 (FISH OIL) 1000 MG CAP PO SCH (08:19)
[2017-12-17] MEDS: ASPIRIN 81 MG CHEW (CHILDREN'S ASA) PO SCH (08:20)
[2017-12-17] MEDS: meTOprolol SUCCINATE 100 MG (TOPROL XL) TAB PO SCH (08:20)
[2017-12-17] MEDS: MAGNESIUM OXIDE (MAG-OX)400 MG TAB PO SCH ×2 (08:20→16:58)
[2017-12-17] MEDS: amLODIPine 5 MG (NORVASC) TAB PO SCH (08:20)
--- NOTE | 2017-12-17 09:04 | Physical Therapy Daily Note ---
PT Daily Note-Current Subjective Pt. agrees to Rx. Feels she is stronger but didnt sleep well last night. Pain Numeric Pain Scale: 0-No Pain Mental Status Patient Orientation: Normal For Age Transfers Functional [place] Measure 0=Not Assessed/NA 4=Minimal Assistance 1=Total Assistance 5=Supervision or Setup 2=Maximal Assistance 6=Modified [place] 3=Moderate Assistance 7=Complete IndependenceIRFPAI Quality Coding Scale 6 Independent with activity with or without an assistive device 5 Patient requires set up or clean up by helper. Patient completes activity by themselves 4 Supervision or touching assist (CGA). [place] provide cues , steadying assist 3 The helper provides less than half the effort to complete the activity 2 The helper provides more than half the effort to complete the activity 1 Dependent. The helper does all the effort to complete an activity 7 Patient refused to complete or attempt activity 9 The patient did not perform the activity before the current illness or injury 88 Not attempted due to Medical conditions or safety concerns Transfers (B, C, W/C) (FIM): 6 Scootin Rollin Supine to/from Sit: 6 Sit to/from Stand: 6 Weight Bearing Right Lower Extremity: Right Weight Bearing/Tolerated Left Lower Extremity: Left Weight Bearing/Tolerated Gait Training Does the Patient Walk?: Yes Gait (FIM): 6 Distance (FIM): 3=150 ft (250x3) Gait Level of Assist: 6 Gait Persons Needed: 0 Gait Assistive Device: FWW no LOB or incident Stair Training Stair Training: Handrails/: 2 handrails Stairs (FIM): 5 #of Steps: 4 Stairs: Pattern: Reciprocal Level of Assist: 5 Exercises Supine Ex: Ankle pumps, Quad Set, Heel Slides, Straight leg raise, Hip abd/add Supine Reps: 15 Seated Therapy Exercises: Ankle pumps, Sit to stand, Long arc quads, Hip flexion Seated Reps: 10 Standing: Hip Abduction, Hamstring curls, Heel/toe raises, Marching, Mini squats Standing Reps: 15 NuStep Minutes: 12 NuStep Workload: 5 Treatments toileted Mod I Assessment Current Status: Good Progress PT Short Term Goals Short Term Goals Time Frame: Dec 16, 2017 Gait (FIM): 1 Gait Distance Comment: 20' Gait Level of Assist: 4 Gait Assistive Device: FWW PT Senior Care Goals Forest Fire Warden Goals PT Forest Fire Warden Goals Time Frame: Dec 30, 2017 Transfers (B,C,W/C) (FIM): 5 Sit to Lying (QC): 4 Lying-Sitting on Side/Bed(QC): 4 Sit to Stand (QC): 4 Rollin Roll Left to Right (QC): 4 Chair/Xye-uj-Qccdc Xfer(QC): 4 Car Transfer (QC): 4 Gait (FIM): 2 Distance: 50' Walk 10 feet (QC): 4 Walk 10ft-Uneven Surface(QC): 4 Walk 50ft with 2 Turns (QC): 4 Gait Level of Assist: 5 Gait Assistive Device: FWW Stairs (FIM): 2 # of Steps: 4 1 Step (curb) (QC): 4 4 Steps (QC): 4 Stairs Level Of Assist: 4 PT Plan Treatment/Plan Treatment Plan: Continue Plan of Care Treatment Plan: Bed Mobility, Concurrent Therapy, Education, Functional Activity Monique, Functional Strength, Group Therapy, Gait, Safety, Therapeutic Exercise, Transfers Treatment Duration: Dec 30, 2017 Frequency: At least 5 of 7 days/Wk (IRF) Estimated Hrs Per Day: 1.5 hours per day Patient and/or Family Agrees t: Yes Safety Risks/Education Patient Education: Gait Training, Transfer Techniques, Steps, Correct Positioning, Disease Process, Safety Issues Teaching Recipient: Patient Teaching Methods: Demonstration, Discussion Response to Teaching: Verbalize Understanding, Return Demonstration, Reinforcement Needed Time/GCodes Time In: 805 Time Out: 905 Total Billed Treatment Time: 60 Total Billed Treatment 1,EX25m,FA20m,GT15m G Codes Necessary: EVERETT Andujar PTA Dec 17, 2017 09:04
--- NOTE | 2017-12-17 09:14 | Progress Note ---
Subjective Date Seen by a Provider: Dec 17, 2017 Time Seen by a Provider: 09:10 Subjective/Events-last exam PT REPORTS THAT SHE IS FEELING BETTER, SHE IS LESS SHORT OF BREATH, STILL HAS SOME WEAKNESS, BUT OVERALL IS FEELING BETTER. SHE REPORTS A SORE THROAT AND SORE POSTERIOR TONGUE, AND SLIGHT COUGH. Review of Systems General: Fatigue HEENT: No Head Aches; Sore Throat Pulmonary: Dyspnea (IMPROVED), Cough (IMPROVED) Cardiovascular: No: Chest Pain Gastrointestinal: No: Nausea, Abdominal Pain Genitourinary: No Dysuria; Frequency Neurological: Weakness; No: Confusion Objective Exam Last Set of Vital Signs Vital Signs Date Time Temp Pulse Resp B/P (MAP) Pulse Ox O2 Delivery O2 Flow Rate FiO2 12/17/17 07:05 95 Room Air 12/17/17 07:00 76 12/17/17 05:12 98.0 16 145/74 (97) 12/16/17 08:31 2.00 12/14/17 21:00 94 Capillary Refill : I&O Intake and Output 12/17/17 00:00 Intake Total 1350 ml Balance 1350 ml Intake Oral 1350 ml # Voids 11 # Bowel Movements 1 General: Alert, Oriented X3, Cooperative, No Acute Distress HEENT: Atraumatic, PERRLA, EOMI, Mucous Memb Moist/[place], Other (02 by N/C in place) Neck: Supple, No JVD Lungs: Normal Air Movement, Other (IMPROVED AIR MOVEMENT THROUGHOUT) Heart: Regular Rate, Normal S1, Normal S2, Other (systolic murmur at LSB) Abdomen: Normal Bowel Sounds, Soft, No Tenderness Extremities: No Clubbing, Other (TRACE EDEMA BILATERAL LOWER EXTREMITIES) Skin: No Rashes Neuro: Normal Speech Psych/Mental Status: Mental Status NL, Mood NL Results Lab Laboratory Tests 12/16/17 12:11: Glucometer 180H 12/16/17 16:52: Glucometer 242H 12/16/17 20:50: Glucometer 174H 12/17/17 04:17: Glucometer 100 Assessment/Plan Assessment/Plan Assess & Plan/Chief Complaint SEPSIS PNEUMONIA RESPIRATORY DISTRESS HYPERTENSION HEMOPTYSIS DIABETES MELLITUS CORONARY ARTERY DISEASE ATRIAL FIBRILLATION ANEMIA EDEMA SEPSIS WITH PNEUMONIA AND RESPIRATORY DISTRESS - RESOLVED - PT IS COMPLETELY OFF OF OXYGEN DOING WELL - CONTINUE TO CLOSELY MONITOR FOR RETURN OF SHORTNESS OF BREATH OR WORSENING DYSPNEA ON EXERTION. HYPERTENSION - RESUMED HOME MEDICATIONS. - BLOOD PRESSURE STABLE. HEMOPTYSIS -RESOLVED DIABETES MELLITUS - DOING WELL ON HOME REGIMEN. CORONARY ARTERY DISEASE - DEFER TO DR. LOPEZ AFIB - DEFER TO DR. LOPEZ ANEMIA - STABLE - AFTER IV VENOFER WAS STARTED - CONTINUE WITH TREATMENT, MONITOR SYMPTOMS. WEAKNESS - PT TO CONTINUE WITH THERAPY SHE IS STILL PRETTY WEAK FROM HER PROLONGED HOSPITALIZATION. EDEMA - CONTINUE WITH PRN LASIX AND COMPRESSION SOCKS - IMPROVED PLANNING ON DISCHARGE TO HOME WEDNESDAY OF NEXT WEEK Clinical Quality Measures DVT/VTE Risk/Contraindication: Risk Factor Score Per Nursin RFS Level Per Nursing on Admit: 3=High KURTIS DIEGO MD Dec 17, 2017 09:14
--- NOTE | 2017-12-17 09:53 | Diagnostic Imaging Report ---
INDICATION: Pneumonia. Time of exam 9:05 AM Correlation is made with prior study from 12/09/2017. Heart size is stable. Aeration in the lung bases has improved, particularly the left lung base. There may be small residual bilateral effusions. Mid and upper lung guevara are clear. No pneumothorax is seen. IMPRESSION: Small trace bilateral pleural effusions. There has been improved aeration to the left base since exam from 12/09/2017. Dictated by: Dictated on workstation # [id number]
--- NOTE | 2017-12-17 10:48 | Occupational Ther Daily Note ---
OT Current Status-Daily Note Subjective Pt seen in room, up in recliner, agreeable to OT. No pain mentioned. Appearance Alert, cooperative Mental Status/Objective Functional [place] Measure 0=Not Assessed/NA 4=Minimal Assistance 1=Total Assistance 5=Supervision or Setup 2=Maximal Assistance 6=Modified [place] 3=Moderate Assistance 7=Complete [place] Attachments: Saline Lock (covered) ADL-Treatment Pt tends to get up from chair before walker is in front of her. She was able to get up from recliner with SBA and walked SBA, FWW to bathroom, got on/off toilet with SBA, managed clothing and hygiene SBA, walked to shower with SBA, FWW, got in/out of shower with SBA, grab bars, FWW. Walked to toilet to dress, then brushed teeth at sink with SBA, FWW for balance. She returned to recliner, SBA, FWW. Gentle retrograde massage done briefly on each foot before applying MATTHEW hose (to help manage edema in LEs). She was able to put slipper socks on herself. Pt completed 15 reps bilat UE exercise with yellow theraband, recalling three of 5 exercises. Occasional visual or verbal cues needed to do them correctly. To strengthen arms to help with mobility and to increase activity tolerance. No O2 used during tx and pt reported no SOB. Pt left up in recliner, chair alarm on, all needs met. Functional [place] Measure 0=Not Assessed/NA 4=Minimal Assistance 1=Total Assistance 5=Supervision or Setup 2=Maximal Assistance 6=Modified [place] 3=Moderate Assistance 7=Complete IndependenceIRFPAI Quality Coding Scale 6 Independent with activity with or without an assistive device 5 Patient requires set up or clean up by helper. Patient completes activity by themselves 4 Supervision or touching assist (CGA). [place] provide cues , steadying assist 3 The helper provides less than half the effort to complete the activity 2 The helper provides more than half the effort to complete the activity 1 Dependent. The helper does all the effort to complete an activity 7 Patient refused to complete or attempt activity 9 The patient did not perform the activity before the current illness or injury 88 Not attempted due to Medical conditions or safety concerns Grooming (FIM): 5 (SBA at sink to brush teeth, hair) Bathing (FIM): 5 (Pt washed and dried all parts except back with setup, SBA when standing. Shower bench, grab bars, hand held shower. ) Upper Body (FIM): 5 (Dressed upper body with setup. pt educ on transporting clothing on FWW) Lower Body Dressing (FIM): 5 (Pt educ with setup, help with TEDS. SBA when standing to pull pants up. Able to put slipper socks on without AD today.) Toileting (FIM): 5 (Managed clothing and hygiene on tall toilet, grab bar, FWW) Toilet/Commode Transfer (FIM): 5 (On/off tall toilet with SBA, FWW, grab bar) Shower Transfer(FIM): 5 (SBA getting in/out of shower and on/off shower bench) Education OT Patient Education: Exercise program, Modified ADL techniques, Purpose of tx/ functional activities, Safety issues, Transfer techniques Teaching Recipient: Patient Teaching Methods: Demonstration, Discussion Response to Teaching: Verbalize Understanding, Return Demonstration, Reinforcement Needed OT Short Term Goals Short Term Goals Time Frame: Dec 16, 2017 Eating(FIM): 7 Toileting(FIM): 5 Toilet/Commode Transfer(FIM): 5 Comprehension(FIM): 7 Expression(FIM): 7 Social Interaction(FIM): 7 Problem Solving(FIM): 5 Memory(FIM): 5 Additional Short Term Goals: 1-Demonstrate ADL Tasks, 2-Verbalize Understanding , 3-ImproveStrength/Monique 1=Demonstrate adherence to instructed precautions during ADL tasks. 2=Patient will verbalize/demonstrate understanding of assistive devices/ modifications for ADL. 3=Patient will improve strength/tolerance for activity to enable patient to perform ADL's. OT Fci Goals Fci Goals Time Frame: Dec 30, 2017 Eating (FIM): 7 Eating (QC): 6 Groomin Oral Hygiene (QC): 6 Bathing(FIM): 6 Shower/Bathe Self (QC): 6 Upper Body Dressing(FIM): 6 Upper Body Dressing (QC): 6 Lower Body Dressing(FIM): 6 Lower Body Dressing (QC): 6 On/Off Footwear (QC): 6 Toileting(FIM): 6 Toileting Hygiene (QC): 6 Toilet/Commode Transfer(FIM): 6 Toilet/Commode Transfer (QC): 6 Shower Transfer(FIM): 6 Comprehension(FIM): 7 Expression (FIM): 7 Social Interaction(FIM): 7 Problem Solving(FIM): 6 Memory(FIM): 6 Additional Goals: 1-Demonstrate ADL Tasks, 2-Verbalize Understanding, 3- ImproveStrength/Monique 1=Demonstrate adherence to instructed precautions during ADL tasks. 2=Patient will verbalize/demonstrate understanding of assistive devices/ modifications for ADL. 3=Patient will improve strength/tolerance for activity to enable patient to perform ADL's. OT Education/Plan Problem List/Assessment Pt would benefit from skilled OT to increase her independence in basic self care to allow her to safely return home to live with her Discharge Recommendations Plan/Recommendations: Continue POC Treatment Plan/Plan of Care Patient would benefit from OT for education, treatment and training to promote independence in ADL's, mobility, safety and/or upper extremity function for ADL' s. Plan of Care: ADL Retraining, Functional Mobility, Group Exercise/Act as Ind ( educaiton, exercise, activity tolerance, functional activities, memory, socialization), UE Funct Exercise/Act, UE Neuromus Re-Ed/Coord Treatment Duration: Dec 30, 2017 Frequency: At least 5 of 7 days/Wk (IRF) Estimated Hrs Per Day: 1.5 hours per day Agreement: Yes Rehab Potential: Good Time/GCodes Start Time: 09:35 Stop Time: 10:35 Total Time Billed (hr/min): 60 Billed Treatment Time visit, 50 minutes ADL, 10 minutes exercise RANCHO QUINTANA OT Dec 17, 2017 10:48
--- NOTE | 2017-12-17 12:07 | Physical Therapy Daily Note ---
PT Daily Note-Current Subjective Agrees to Rx. Pain Numeric Pain Scale: 0-No Pain Mental Status Patient Orientation: Normal For Age Transfers Functional [place] Measure 0=Not Assessed/NA 4=Minimal Assistance 1=Total Assistance 5=Supervision or Setup 2=Maximal Assistance 6=Modified [place] 3=Moderate Assistance 7=Complete IndependenceIRFPAI Quality Coding Scale 6 Independent with activity with or without an assistive device 5 Patient requires set up or clean up by helper. Patient completes activity by themselves 4 Supervision or touching assist (CGA). [place] provide cues , steadying assist 3 The helper provides less than half the effort to complete the activity 2 The helper provides more than half the effort to complete the activity 1 Dependent. The helper does all the effort to complete an activity 7 Patient refused to complete or attempt activity 9 The patient did not perform the activity before the current illness or injury 88 Not attempted due to Medical conditions or safety concerns All TRFs SBA to Mod I Weight Bearing Right Lower Extremity: Right Weight Bearing/Tolerated Left Lower Extremity: Left Weight Bearing/Tolerated Gait Training Gait Assistive Device: FWW 175x2 Stair Training Stair Training: Handrails/: 2 handrails 4 steps SBA Exercises Supine Ex: Ankle pumps, Quad Set, Rolling, Glut sets, Heel Slides, Short Arc Quads, Scooting, Straight leg raise (assist), Hip abd/add Supine Reps: 15 Treatments toileted indep Assessment Current Status: Good Progress PT Short Term Goals Short Term Goals Time Frame: Dec 16, 2017 Gait (FIM): 1 Gait Distance Comment: 20' Gait Level of Assist: 4 Gait Assistive Device: FWW PT Longterm Goals Longterm Goals PT Business Support Coordinator Goals Time Frame: Dec 30, 2017 Transfers (B,C,W/C) (FIM): 5 Sit to Lying (QC): 4 Lying-Sitting on Side/Bed(QC): 4 Sit to Stand (QC): 4 Rollin Roll Left to Right (QC): 4 Chair/Qrd-xb-Ssxou Xfer(QC): 4 Car Transfer (QC): 4 Gait (FIM): 2 Distance: 50' Walk 10 feet (QC): 4 Walk 10ft-Uneven Surface(QC): 4 Walk 50ft with 2 Turns (QC): 4 Gait Level of Assist: 5 Gait Assistive Device: FWW Stairs (FIM): 2 # of Steps: 4 1 Step (curb) (QC): 4 4 Steps (QC): 4 Stairs Level Of Assist: 4 PT Plan Treatment/Plan Treatment Plan: Continue Plan of Care Treatment Plan: Bed Mobility, Concurrent Therapy, Education, Functional Activity Monique, Functional Strength, Group Therapy, Gait, Safety, Therapeutic Exercise, Transfers Treatment Duration: Dec 30, 2017 Frequency: At least 5 of 7 days/Wk (IRF) Estimated Hrs Per Day: 1.5 hours per day Patient and/or Family Agrees t: Yes Safety Risks/Education Patient Education: Gait Training, Transfer Techniques, Steps, Correct Positioning Teaching Recipient: Patient Teaching Methods: Demonstration, Discussion Response to Teaching: Verbalize Understanding, Return Demonstration, Reinforcement Needed Time/GCodes Time In: 1100 Time Out: 1130 Total Billed Treatment Time: 30 Total Billed Treatment 1,GT15m,EX15m G Codes Necessary: EVERETT Andujar SENIOR RESEARCH EXECUTIVE Dec 17, 2017 12:07
--- NOTE | 2017-12-17 14:01 | Speech Therapy Daily Note ---
Speech Daily Progress Note Subjective Date Seen by Provider: Dec 17, 2017 Time Seen by Provider: 13:40 PATIENT WAS PLEASANT, COOPERATIVE AND AGREEABLE TO WORK WITH THIS CLOTH DYE RANGE OPERATOR. Objective PATIENT WAS TASKED WITH COMPLETION OF ACTIVITIES RELATED TO SHORT TERM RECALL, STORY RETELLING AND ORIENTATION QUESTIONING. Assessment Assessment Current Status: Good Progress THE PATIENT COMPLETED 7/10 TASKS FOR RECALLING AN ITEM FOR QUESTIONING. SHE COMPLETED 5/5 QUESTIONS FOLLOWING A 50-WORD PARAGRAPH READING AND WAS ABLE TO ANSWER 5/5 ORIENTATION QUESTIONS. Treatment Plan Continue Plan of Care Communication Comprehension: 7 Expression: 7 Social Cognition Social Interaction: 7 Problem Solvin Memory: 4 Speech Short Term Goals Short Term Goals Short Term Goals Pt will complete problem solving tasks with at least 85% accuracy and min assist. Pt will complete memory activities with at least 80% accuracy and min assist. Time Frame-ST week Comprehension: 7 Expression: 7 Social Interaction: 7 Problem Solvin Memory: 5 Speech Medical Support Assistant Goals Medical Support Assistant Goals Pt will demonstrate functional cognition for safety and maximum independence for the home setting. Comprehension: 7 Expression: 7 Social Interaction: 7 Problem Solvin Memory: 6 Speech-Plan Treatment Plan Speech Therapy Treatment Plan: Continue Plan of Care PATIENT COMPLETED SHORT TERM MEMORY TASKS WELL RECALL. Treatment Duration: Dec 21, 2017 Frequency: 5 times per week Estimated Hrs Per Day: .5 hour per day Rehab Potential: Good Pt/Family Agrees to Plan: Yes Time Speech Therapy Time In: 13:40 Speech Therapy Time Out: 13:55 Total Billed Time: 15 Billed Treatment Time [id number] 1, SLTS No PATIENT INDICATED THAT SHE WAS SCHEDULED TO RETURN HOME ON . NIKA BECK Dec 17, 2017 14:01
--- NOTE | 2017-12-17 14:26 | Therapy Group Daily Note ---
Therapy Daily Group Note Patient Education Topic Energy Cons Other/Notes Pt was an active participant in OT group, contributing to discussion and education on techniques to conserve energy during daily activities. She shared some techniques that she has used to manage her energy and verbalized understanding of additional ideas. She was provided with written information for home. Pt walked back to room with SBAlan, DREW and was toileted,then left up in recliner, all needs met. Start Time: 13:00 Stop Time: 13:30 Total Billed Treatment Time: 30 Total Billed Treatment visit, 30 minutes group RANCHO QUINTANA OT Dec 17, 2017 14:26
[2017-12-17 15:43] VITALS: BP 130/53
[2017-12-17] MEDS: ACETAMINOPHEN 500 MG TAB (TYLENOL) PO SCH (20:23)
[2017-12-17] MEDS: diphenhydrAMINE 25 MG TAB (BENADRYL) PO SCH (20:23)
[2017-12-17] MEDS: eZETimibe 10 MG (ZETIA) TABLET PO SCH (20:24)
[2017-12-18] MEDS: NYSTATIN ORAL SUSP 5 ML UDC PO SCH ×5 (00:59→23:33)
[2017-12-18 05:55] VITALS: BP 111/64
[2017-12-18] MEDS: inSUlin ASPART (NovoLOG) 1 UNIT/0.01 ML (CHARGE PER UNIT) SC SCH ×4 (06:07→20:09)
[2017-12-18 06:21] LABS: CALCIUM 8.8 MG/DL (8.5-10.1); CREATININE SERUM 1.02 MG/DL (0.60-1.30); POTASSIUM 3.9 MMOL/L (3.6-5.0)
[2017-12-18] MEDS: LEVOTHYROXINE 50 MCG (LEVOTHROID) TAB PO SCH (06:44)
[2017-12-18] MEDS: PANTOPRAZOLE 40 MG (PROTONIX) TAB PO SCH (06:44)
[2017-12-18] MEDS: metFORMIN 500 MG (GLUCOPHAGE) TAB PO SCH ×3 (06:44→20:06)
[2017-12-18 08:22] VITALS: BP 133/71
[2017-12-18] MEDS: SACUBITRIL/VALSARTAN 24/26 MG (ENTRESTO) TABLET PO SCH ×2 (08:23→20:06)
[2017-12-18] MEDS: ASPIRIN 81 MG CHEW (CHILDREN'S ASA) PO SCH (08:23)
[2017-12-18] MEDS: amLODIPine 5 MG (NORVASC) TAB PO SCH (08:23)
[2017-12-18] MEDS: GABAPENTIN 600 MG (NEURONTIN) TAB PO SCH ×3 (08:23→20:06)
[2017-12-18] MEDS: meTOprolol SUCCINATE 100 MG (TOPROL XL) TAB PO SCH (08:23)
[2017-12-18] MEDS: DIGOXIN 0.125 MG (LANOXIN) TAB PO SCH (08:23)
[2017-12-18] MEDS: APIXABAN 2.5 MG (ELIQUIS) TABLET PO SCH ×2 (08:23→20:06)
[2017-12-18] MEDS: OMEGA 3 (FISH OIL) 1000 MG CAP PO SCH (08:23)
[2017-12-18] MEDS: FUROSEMIDE 40 MG (LASIX) TAB PO SCH (08:23)
[2017-12-18] MEDS: MAGNESIUM OXIDE (MAG-OX)400 MG TAB PO SCH ×2 (08:23→17:03)
[2017-12-18] MEDS: inSUlin DETERMIR 1 UNIT/0.01 ML (LEVEMIR) CHARGE PER UNIT SQ SCH (08:25)
[2017-12-18] MEDS: IRON SUCROSE 200 MG/10 ML (VENOFER) VIAL IV SCH (10:15)
--- NOTE | 2017-12-18 10:41 | Physical Therapy Daily Note ---
PT Daily Note-Current Subjective Patient in bathroom pre tx, agrees to PT, no complaints of pain. Appearance Patient in recliner post tx with nurse call, phone, tray, all needs met, chair alarm on. Mental Status Patient Orientation: Person, Place, Situation Transfers Functional [place] Measure 0=Not Assessed/NA 4=Minimal Assistance 1=Total Assistance 5=Supervision or Setup 2=Maximal Assistance 6=Modified [place] 3=Moderate Assistance 7=Complete IndependenceIRFPAI Quality Coding Scale 6 Independent with activity with or without an assistive device 5 Patient requires set up or clean up by helper. Patient completes activity by themselves 4 Supervision or touching assist (CGA). [place] provide cues , steadying assist 3 The helper provides less than half the effort to complete the activity 2 The helper provides more than half the effort to complete the activity 1 Dependent. The helper does all the effort to complete an activity 7 Patient refused to complete or attempt activity 9 The patient did not perform the activity before the current illness or injury 88 Not attempted due to Medical conditions or safety concerns Transfers (B, C, W/C) (FIM): 6 Sit to/from Stand: 6 Weight Bearing Right Lower Extremity: Right Weight Bearing/Tolerated Left Lower Extremity: Left Weight Bearing/Tolerated Gait Training Gait (FIM): 6 Distance: 200'x2 Gait Level of Assist: 6 Gait Assistive Device: FWW Slow, steady ambulation, good step through Exercises NuStep Minutes: 10 NuStep Workload: 5 Treatments ambulation, functional strengthening, stair training Assessment Current Status: Fair Progress good balance during ambulation and transfers PT Short Term Goals Short Term Goals Time Frame: Dec 16, 2017 Gait (FIM): 1 Gait Distance Comment: 20' Gait Level of Assist: 4 Gait Assistive Device: FWW PT Thread Inspector Goals Thread Inspector Goals PT Thread Inspector Goals Time Frame: Dec 30, 2017 Transfers (B,C,W/C) (FIM): 5 Sit to Lying (QC): 4 Lying-Sitting on Side/Bed(QC): 4 Sit to Stand (QC): 4 Rollin Roll Left to Right (QC): 4 Chair/Rqy-rd-Hpryc Xfer(QC): 4 Car Transfer (QC): 4 Gait (FIM): 2 Distance: 50' Walk 10 feet (QC): 4 Walk 10ft-Uneven Surface(QC): 4 Walk 50ft with 2 Turns (QC): 4 Gait Level of Assist: 5 Gait Assistive Device: FWW Stairs (FIM): 2 # of Steps: 4 1 Step (curb) (QC): 4 4 Steps (QC): 4 Stairs Level Of Assist: 4 PT Plan Problem List Problem List: Activity Tolerance, Functional Strength, Safety, Balance, Gait, Transfer Treatment/Plan Treatment Plan: Continue Plan of Care Treatment Plan: Bed Mobility, Concurrent Therapy, Education, Functional Activity Monique, Functional Strength, Group Therapy, Gait, Safety, Therapeutic Exercise, Transfers Treatment Duration: Dec 30, 2017 Frequency: At least 5 of 7 days/Wk (IRF) Estimated Hrs Per Day: 1.5 hours per day Patient and/or Family Agrees t: Yes Safety Risks/Education Patient Education: Gait Training, Transfer Techniques, Correct Positioning, Safety Issues Teaching Recipient: Patient Teaching Methods: Demonstration, Discussion Response to Teaching: Reinforcement Needed Time/GCodes Time In: 1020 Time Out: 1036 Total Billed Treatment Time: 16 Total Billed Treatment 1 visit GT 16' LINDA BARRIGA PT Dec 18, 2017 10:41
--- NOTE | 2017-12-18 14:14 | Cardiology Progress Note ---
Cardiology SOAP Progress Note Subjective: Resting comfortably in her chair. No cardiac symptoms. Objective: I&O/Vital Signs 12/18/17 12/18/17 12/18/17 12/18/17 03:10 05:55 08:22 09:59 Temp 98.2 Pulse 74 73 Resp 16 B/P (MAP) 111/64 (80) 133/71 (91) Pulse Ox 95 97 O2 Delivery Room Air Room Air Room Air Room Air 12/18/17 00:00 Intake Total 840 ml Balance 840 ml Weight (Pounds): 179 Weight (Ounces): 1.6 Weight (Calculated Kilograms): 81.135617 Constitutional: appears stated age, AAO x 3, apparent distress, well-developed , well-nourished Respiratory: No accessory muscle use, No respiratory distress, No chest tender , No chest expansion is symmetric; chest is bilaterally symmetric; No lungs clear to percussion, No lungs clear to auscultation, No crackles, No rhonchi, No rales, No stridor, No wheezing, No pleural rub; other (good bilat air entry) Cardiovascular: regular rate-rhythm, S1 and S2, systolic murmur (3/6 MSM) Gastrointestional: No tender; soft; No round, No distended, No pulsatile mass, No organomegaly, No guarding, No rebound, No tenderness, No hernia, No mass; audible bowel sounds; No abnormal bowel sounds, No abdominal bruits, No spleenomegaly, No other Extremities: No normal range of motion, No non-tender, No normal inspection, No pedal edema, No calf tenderness, No normal capillary refill, No pelvis stable , No calf tenderness, No inflammation, No pedal edema, No slow capillary refill , No swelling, No other, No abrasion, No clubbing, No cyanosis, No ecchymosis, No laceration, No no lower extremity edema bilateral, No significant edema, No tenderness, No wound Neurologic/Psychiatric: no motor/sensory deficits, alert, normal mood/affect, oriented x 3, grossly intact, power is 5/5 both on sides Skin: No normal color, No warm/dry, No cyanosis, No cool, No diaphoresis, No damp, No ecchymosis, No jaundice, No mottled, No pallor, No rash, No tattoos/ piercings, No ulcerations, No rash on exposed areas, No ulcerations on exposed areas, No other Results/Procedures: Labs Laboratory Tests 12/17/17 15:41: Glucometer 91 12/17/17 20:31: Glucometer 105 12/18/17 05:47: Hemoglobin 9.0L, Hematocrit 29L, Sodium Level 139, Potassium Level 3.9, Chloride Level 101, Carbon Dioxide Level 26, Anion Gap 12, Blood Urea Nitrogen 13, Creatinine 1.02, Estimat Glomerular Filtration Rate 53, BUN/Creatinine Ratio 13, Glucose Level 121H, Calcium Level 8.8, B-Type Natriuretic Peptide 3037.8H 12/18/17 05:48: Glucometer 125H 12/18/17 11:02: Glucometer 285H A/P: Assessment/Dx: Admission Diagnosis Anemia Edema Pneumonia Hypertension Plan: Assessment/Plan Peripheral edema, Congestive heart failure, maintained on daily Lasix at this time, continue to monitor Hypertension, continue current medication monitor blood pressure Pneumonia with sepsis - management per Medical and Pulmonary Services Hemoptysis, likely due to pneumonia, now resolved Blood clots in stools, suggestive of GI bleed or swallowed blood from hemoptysis. W/u for this is with the [facility] PAF, first documented on tele strips at [facility] in early 2016. Currently in NSR H/o ischemic cm. LVEF on 02/18/17 was 35%. Echo of 12/03/17: LVEF 60-65%, LVH, grade 1 rehman dysfunction, mild to mod MR, mod to severe with valve area approx 1.1 sq cm and gradient approx 25 mmHg, PASP 25 mmHg, BNP is elevated, started on Lasix CAD. S/p prox LAD stenting by Dr Obrien at [facility] on 02/20/17: Promus 2.5x24. Cath on 02/18/17 prior to cor stenting showed dual LAD, one of which was proximally occluded and the other was severely diseased. Rest of the cors had mod dz H/o ischemic cardiomyopathy. MPI of 01/12/17: anteroapical infarction w/o significant ischemia; LVEF 39% Dizziness and vertigo, improved after reduction of anti-htn and Invokana treatment in early Apr 2015. MRI head on 05/10/15 (Dr Mariano) did not show lesions other than possibility of chronic microvascular disease Valvular heart disease. Cath of 02/18/17 showed mod MR and a gradient across AoV of 25-30 mmHg. Mod with valve area 1.4 cm sq and mean gradient across aortic valve of 23 mmHg on echo of 01/08/17. Subsequent echo as noted above DM II, followed by primary care team CKD stage 3, likely diabetic nephropathy. eGFR on 05/25/17 is 44 Hyperlipidemia, but has intolerance to statins (severe joint pains) Hypothyroidism, treated with thyroid replacement therapy. TSH normal (2.19) on Bilateral leg and foot discomfort which has been diagnosed as neuropathy. Normal bilat EDDY in June 2014 Mild bilat carotid arterial disease on carotid u/s of 06/08/17 Abn ECG. ECG of 05/13/17: NSR, old ASMI H/o surgeries: S/p hysterectomy w/o oophorectomy; S/p bilateral knee replacement ; H/o R rotator cuff surgery Thank you for your consultation. Please call me if you have any questions. Piyush Cartagena MD, FACP, FACC, FSCAI, FHRS, CCDS Interventional Cardiology Cardiac Electrophysiology Vascular Medicine and Endovascular Interventions Mgiue CARTAGENA MD Dec 18, 2017 2:14 pm
[2017-12-18 18:10] VITALS: BP 119/70
[2017-12-18] MEDS: eZETimibe 10 MG (ZETIA) TABLET PO SCH (20:06)
[2017-12-18] MEDS: diphenhydrAMINE 25 MG TAB (BENADRYL) PO SCH (20:06)
[2017-12-18] MEDS: ACETAMINOPHEN 500 MG TAB (TYLENOL) PO SCH (20:06)
[2017-12-19 05:21] VITALS: BP 126/71
[2017-12-19] MEDS: inSUlin ASPART (NovoLOG) 1 UNIT/0.01 ML (CHARGE PER UNIT) SC SCH ×4 (06:21→20:33)
[2017-12-19] MEDS: LEVOTHYROXINE 50 MCG (LEVOTHROID) TAB PO SCH (06:21)
[2017-12-19] MEDS: metFORMIN 500 MG (GLUCOPHAGE) TAB PO SCH ×3 (06:21→20:33)
[2017-12-19] MEDS: PANTOPRAZOLE 40 MG (PROTONIX) TAB PO SCH (06:21)
[2017-12-19] MEDS: NYSTATIN ORAL SUSP 5 ML UDC PO SCH ×3 (06:21→17:11)
[2017-12-19 08:45] VITALS: BP 119/60
[2017-12-19] MEDS: OMEGA 3 (FISH OIL) 1000 MG CAP PO SCH (08:48)
[2017-12-19] MEDS: ASPIRIN 81 MG CHEW (CHILDREN'S ASA) PO SCH (08:48)
[2017-12-19] MEDS: MAGNESIUM OXIDE (MAG-OX)400 MG TAB PO SCH ×2 (08:48→17:11)
[2017-12-19] MEDS: SACUBITRIL/VALSARTAN 24/26 MG (ENTRESTO) TABLET PO SCH ×2 (08:49→20:33)
[2017-12-19] MEDS: amLODIPine 5 MG (NORVASC) TAB PO SCH (08:49)
[2017-12-19] MEDS: APIXABAN 2.5 MG (ELIQUIS) TABLET PO SCH ×2 (08:49→20:33)
[2017-12-19] MEDS: DIGOXIN 0.125 MG (LANOXIN) TAB PO SCH (08:49)
[2017-12-19] MEDS: FUROSEMIDE 40 MG (LASIX) TAB PO SCH (08:49)
[2017-12-19] MEDS: meTOprolol SUCCINATE 100 MG (TOPROL XL) TAB PO SCH (08:49)
[2017-12-19] MEDS: GABAPENTIN 600 MG (NEURONTIN) TAB PO SCH ×3 (08:49→20:32)
[2017-12-19] MEDS: inSUlin DETERMIR 1 UNIT/0.01 ML (LEVEMIR) CHARGE PER UNIT SQ SCH (08:50)
--- NOTE | 2017-12-19 14:27 | Cardiology Progress Note ---
Cardiology SOAP Progress Note Subjective: No cardiac complaints. Objective: I&O/Vital Signs 12/19/17 12/19/17 12/19/17 05:21 08:45 10:38 Temp 98.6 Pulse 78 70 Resp 18 B/P (MAP) 126/71 (89) 119/60 (79) Pulse Ox 94 O2 Delivery Room Air Room Air 12/19/17 00:00 Intake Total 910 ml Balance 910 ml Weight (Pounds): 159 Weight (Ounces): 3.2 Weight (Calculated Kilograms): 72.222411 Constitutional: appears stated age, AAO x 3, apparent distress, well-developed , well-nourished Respiratory: chest is bilaterally symmetric, other Cardiovascular: regular rate-rhythm, S1 and S2, systolic murmur Gastrointestional: soft, audible bowel sounds Extremities: No normal range of motion, No non-tender, No normal inspection, No pedal edema, No calf tenderness, No normal capillary refill, No pelvis stable , No calf tenderness, No inflammation, No pedal edema, No slow capillary refill , No swelling, No other, No abrasion, No clubbing, No cyanosis, No ecchymosis, No laceration, No no lower extremity edema bilateral, No significant edema, No tenderness, No wound Neurologic/Psychiatric: no motor/sensory deficits, alert, normal mood/affect, oriented x 3, grossly intact, power is 5/5 both on sides Skin: No normal color, No warm/dry, No cyanosis, No cool, No diaphoresis, No damp, No ecchymosis, No jaundice, No mottled, No pallor, No rash, No tattoos/ piercings, No ulcerations, No rash on exposed areas, No ulcerations on exposed areas, No other Results/Procedures: Labs Laboratory Tests 12/18/17 15:54: Glucometer 74 12/18/17 20:09: Glucometer 157H 12/19/17 06:21: Glucometer 114H 12/19/17 11:09: Glucometer 278H A/P: Assessment/Dx: Admission Diagnosis Anemia Edema Pneumonia Hypertension, Aortic stenosis, Mitral regurgitation, CAD Plan: Assessment/Plan Peripheral edema, Congestive heart failure, maintained on daily Lasix at this time, continue to monitor Hypertension, continue current medication monitor blood pressure Pneumonia with sepsis - management per Medical and Pulmonary Services Hemoptysis, likely due to pneumonia, now resolved Blood clots in stools, suggestive of GI bleed or swallowed blood from hemoptysis. W/u for this is with the [facility] PAF, first documented on tele strips at [facility] in early 2016. Currently in NSR H/o ischemic cm. LVEF on 02/18/17 was 35%. Echo of 12/03/17: LVEF 60-65%, LVH, grade 1 rehman dysfunction, mild to mod MR, mod to severe with valve area approx 1.1 sq cm and gradient approx 25 mmHg, PASP 25 mmHg, BNP is elevated, started on Lasix CAD. S/p prox LAD stenting by Dr Obrien at [facility] on 02/20/17: Promus 2.5x24. Cath on 02/18/17 prior to cor stenting showed dual LAD, one of which was proximally occluded and the other was severely diseased. Rest of the cors had mod dz H/o ischemic cardiomyopathy. MPI of 01/12/17: anteroapical infarction w/o significant ischemia; LVEF 39% Dizziness and vertigo, improved after reduction of anti-htn and Invokana treatment in early Apr 2015. MRI head on 05/10/15 (Dr Mariano) did not show lesions other than possibility of chronic microvascular disease Valvular heart disease. Cath of 02/18/17 showed mod MR and a gradient across AoV of 25-30 mmHg. Mod with valve area 1.4 cm sq and mean gradient across aortic valve of 23 mmHg on echo of 01/08/17. Subsequent echo as noted above DM II, followed by primary care team CKD stage 3, likely diabetic nephropathy. eGFR on 05/25/17 is 44 Hyperlipidemia, but has intolerance to statins (severe joint pains) Hypothyroidism, treated with thyroid replacement therapy. TSH normal (2.19) on Bilateral leg and foot discomfort which has been diagnosed as neuropathy. Normal bilat EDDY in June 2014 Mild bilat carotid arterial disease on carotid u/s of 06/08/17 Abn ECG. ECG of 05/13/17: NSR, old ASMI H/o surgeries: S/p hysterectomy w/o oophorectomy; S/p bilateral knee replacement ; H/o R rotator cuff surgery Thank you for your consultation. Please call me if you have any questions. Piyush Cartagena MD, FACP, FACC, FSCAI, FHRS, CCDS Interventional Cardiology Cardiac Electrophysiology Vascular Medicine and Endovascular Interventions Migue CARTAGENA MD Dec 19, 2017 2:27 pm
[2017-12-19 17:10] VITALS: BP 117/68
[2017-12-19] MEDS: ACETAMINOPHEN 500 MG TAB (TYLENOL) PO SCH (20:32)
[2017-12-19] MEDS: diphenhydrAMINE 25 MG TAB (BENADRYL) PO SCH (20:32)
[2017-12-19] MEDS: eZETimibe 10 MG (ZETIA) TABLET PO SCH (20:33)
[2017-12-20] MEDS: NYSTATIN ORAL SUSP 5 ML UDC PO SCH ×4 (00:27→18:25)
[2017-12-20 05:08] VITALS: BP 148/72
[2017-12-20] MEDS: metFORMIN 500 MG (GLUCOPHAGE) TAB PO SCH ×3 (05:32→20:32)
[2017-12-20] MEDS: LEVOTHYROXINE 50 MCG (LEVOTHROID) TAB PO SCH (05:32)
[2017-12-20] MEDS: PANTOPRAZOLE 40 MG (PROTONIX) TAB PO SCH (05:32)
[2017-12-20 06:10] LABS: HEMOGLOBIN 9.5 G/DL (11.5-16.0)
[2017-12-20 06:29] LABS: CALCIUM 8.8 MG/DL (8.5-10.1); CREATININE SERUM 1.02 MG/DL (0.60-1.30); POTASSIUM 3.9 MMOL/L (3.6-5.0)
[2017-12-20] MEDS: inSUlin ASPART (NovoLOG) 1 UNIT/0.01 ML (CHARGE PER UNIT) SC SCH ×4 (06:48→20:29)
[2017-12-20 08:10] VITALS: BP 116/61
[2017-12-20] MEDS: DIGOXIN 0.125 MG (LANOXIN) TAB PO SCH (08:10)
[2017-12-20] MEDS: SACUBITRIL/VALSARTAN 24/26 MG (ENTRESTO) TABLET PO SCH ×2 (08:10→20:32)
[2017-12-20] MEDS: FUROSEMIDE 40 MG (LASIX) TAB PO SCH (08:11)
[2017-12-20] MEDS: meTOprolol SUCCINATE 100 MG (TOPROL XL) TAB PO SCH (08:11)
[2017-12-20] MEDS: GABAPENTIN 600 MG (NEURONTIN) TAB PO SCH ×3 (08:11→20:31)
[2017-12-20] MEDS: amLODIPine 5 MG (NORVASC) TAB PO SCH (08:11)
[2017-12-20] MEDS: APIXABAN 2.5 MG (ELIQUIS) TABLET PO SCH ×2 (08:11→20:31)
[2017-12-20] MEDS: ASPIRIN 81 MG CHEW (CHILDREN'S ASA) PO SCH (08:11)
[2017-12-20] MEDS: MAGNESIUM OXIDE (MAG-OX)400 MG TAB PO SCH ×2 (08:11→18:25)
[2017-12-20] MEDS: OMEGA 3 (FISH OIL) 1000 MG CAP PO SCH (08:11)
[2017-12-20] MEDS: inSUlin DETERMIR 1 UNIT/0.01 ML (LEVEMIR) CHARGE PER UNIT SQ SCH (08:12)
--- NOTE | 2017-12-20 08:52 | Physical Therapy Daily Note ---
PT Daily Note-Current Subjective Pt. agrees to Rx. States she has noted a lot of progress Pain Numeric Pain Scale: 0-No Pain Mental Status Patient Orientation: Normal For Age sitting up dressed looks great, no edema as previous Transfers Functional [place] Measure 0=Not Assessed/NA 4=Minimal Assistance 1=Total Assistance 5=Supervision or Setup 2=Maximal Assistance 6=Modified [place] 3=Moderate Assistance 7=Complete IndependenceIRFPAI Quality Coding Scale 6 Independent with activity with or without an assistive device 5 Patient requires set up or clean up by helper. Patient completes activity by themselves 4 Supervision or touching assist (CGA). [place] provide cues , steadying assist 3 The helper provides less than half the effort to complete the activity 2 The helper provides more than half the effort to complete the activity 1 Dependent. The helper does all the effort to complete an activity 7 Patient refused to complete or attempt activity 9 The patient did not perform the activity before the current illness or injury 88 Not attempted due to Medical conditions or safety concerns Transfers (B, C, W/C) (FIM): 6 Scootin Rollin Roll Left to Right (QC): 5 Supine to/from Sit: 6 Sit to/from Stand: 6 Sit to Lying (QC): 5 Sit to Stand (QC): 5 Chair/Ont-yu-Ldkgj Xfer(QC): 5 Bed to/from Chair: 6 Car Transfer (QC): 5 up ad bj status Weight Bearing Right Lower Extremity: Right Weight Bearing/Tolerated Left Lower Extremity: Left Weight Bearing/Tolerated Gait Training Does the Patient Walk?: Yes Gait (FIM): 6 Distance (FIM): 3=150 ft (250x2) Walk 10 feet (QC): 5 Walk 50 ft with 2 Turns(QC): 5 Walk 150 ft (QC): 5 Walking 10ft/uneven surface-QC: 5 Gait Level of Assist: 6 Gait Persons Needed: 0 Gait Assistive Device: FWW ill likely progress to cane at home Wheelchair Training Does the Pt Use a Wheelchair?: No Stair Training Stair Training: Handrails/: 2 handrails Stairs (FIM): 6 #of Steps: 12 1 Step (curb) (QC): 5 4 Steps (QC): 5 12 Steps (QC): 5 Stairs: Pattern: Reciprocal Level of Assist: 6 Balance Picking up an Object (QC): 5 Exercises Supine Ex: Bridging, Ankle pumps, Quad Set, Rolling, Glut sets, Heel Slides, Short Arc Quads, Scooting, Straight leg raise, Hip abd/add Supine Reps: 12 Assessment Current Status: Good Progress meets goals PT Short Term Goals Short Term Goals Time Frame: Dec 16, 2017 Gait (FIM): 1 Gait Distance Comment: 20' Gait Level of Assist: 4 Gait Assistive Device: FWW PT Jail Goals Jail Goals PT Edge Gluer Goals Time Frame: Dec 30, 2017 Transfers (B,C,W/C) (FIM): 5 Sit to Lying (QC): 4 Lying-Sitting on Side/Bed(QC): 4 Sit to Stand (QC): 4 Rollin Roll Left to Right (QC): 4 Chair/Cnz-ou-Rwhth Xfer(QC): 4 Car Transfer (QC): 4 Gait (FIM): 2 Distance: 50' Walk 10 feet (QC): 4 Walk 10ft-Uneven Surface(QC): 4 Walk 50ft with 2 Turns (QC): 4 Gait Level of Assist: 5 Gait Assistive Device: FWW Stairs (FIM): 2 # of Steps: 4 1 Step (curb) (QC): 4 4 Steps (QC): 4 Stairs Level Of Assist: 4 PT Plan Treatment/Plan Treatment Plan: Continue Plan of Care Treatment Plan: Bed Mobility, Concurrent Therapy, Education, Functional Activity Monique, Functional Strength, Group Therapy, Gait, Safety, Therapeutic Exercise, Transfers Treatment Duration: Dec 30, 2017 Frequency: At least 5 of 7 days/Wk (IRF) Estimated Hrs Per Day: 1.5 hours per day Patient and/or Family Agrees t: Yes Safety Risks/Education Patient Education: Gait Training, Transfer Techniques, Steps, Correct Positioning, Disease Process, Safety Issues Teaching Recipient: Patient Teaching Methods: Demonstration, Discussion Response to Teaching: Verbalize Understanding, Return Demonstration, Reinforcement Needed Time/GCodes Time In: 800 Time Out: 900 Total Billed Treatment Time: 60 Total Billed Treatment 1,Gt15m,Ex10m,FA35m G Codes Necessary: EVERETT Andujar PTA Dec 20, 2017 08:52
--- NOTE | 2017-12-20 11:25 | Occupational Ther Daily Note ---
OT Current Status-Daily Note Subjective Pt seen in room, up in recliner, agreeable to OT. No pain mentioned. Appearance Alert, cooperative Mental Status/Objective Functional [place] Measure 0=Not Assessed/NA 4=Minimal Assistance 1=Total Assistance 5=Supervision or Setup 2=Maximal Assistance 6=Modified [place] 3=Moderate Assistance 7=Complete [place] Attachments: Saline Lock (covered) ADL-Treatment Pt is able to feed herself without assistance and difficulty. PT has made her up ad bj in room. Got up from recliner without help, walked to bathroom, FWW, toileted, showered, groomed at sink, mild safety concerns. Pt education to sit to dress/undress to prevent falling. Pt walked back to recliner with FWW and put on her own MATTHEW hose and slipper socks. Functional [place] Measure 0=Not Assessed/NA 4=Minimal Assistance 1=Total Assistance 5=Supervision or Setup 2=Maximal Assistance 6=Modified [place] 3=Moderate Assistance 7=Complete IndependenceIRFPAI Quality Coding Scale 6 Independent with activity with or without an assistive device 5 Patient requires set up or clean up by helper. Patient completes activity by themselves 4 Supervision or touching assist (CGA). [place] provide cues , steadying assist 3 The helper provides less than half the effort to complete the activity 2 The helper provides more than half the effort to complete the activity 1 Dependent. The helper does all the effort to complete an activity 7 Patient refused to complete or attempt activity 9 The patient did not perform the activity before the current illness or injury 88 Not attempted due to Medical conditions or safety concerns Eating (FIM): 7 (Pt able to open packages, cut up food, feed herself, get a drink without help.) Eating (QC): 6 Grooming (FIM): 6 (Stood at sink to brush teeth, comb hair, using FWW for balance. ) Oral Hygiene (QC): 6 Bathing (FIM): 6 (Washed and dried all parts except back. Retrieved towels from bar and turned water on/off. Shower bench, grab bars, hand held shower) Shower/Bathe Self (QC): 6 Upper Body (FIM): 6 (Retrieved clean clothes and put dirty ones away. Undressed and dressed upper body mod I) Upper Body Dressing (QC): 6 Lower Body Dressing (FIM): 6 (Retrieved clean clothes and put dirty ones away. Doffed and donned all clothing with no LOB, usng FWW for balance. Able to don TEDs and slipper socks. ) Lower Body Dressing (QC): 6 On/Off Footwear (QC): 6 Toileting (FIM): 6 (managed clothing and hygiene, usign tall toilet, grab bars , FWW) Toileting Hygiene (QC): 6 Toilet/Commode Transfer (FIM): 6 (On/off tall toilet, with grab bar, FWW) Toilet Transfer (QC): 6 Shower Transfer(FIM): 6 (on/off shower bench, grab bars, FWW) Other Treatment Pt walked to gym with FWW, no help, no LOB. She completed 15 minutes bilat UE exercise with arm bike set at 20W resistance, to strengthen arms to help with transfer and ADLs, with one brief recovery break. Pt walked back to room, FWW, was left up in recliner, all needs met. Education OT Patient Education: Modified ADL techniques (sit for lower body dressing), Progress toward Goal/Update tx plan, Purpose of tx/functional activities, Safety issues, W/C management Teaching Recipient: Patient Teaching Methods: Discussion Response to Teaching: Verbalize Understanding, Return Demonstration OT Short Term Goals Short Term Goals Time Frame: Dec 16, 2017 Eating(FIM): 7 Toileting(FIM): 5 Toilet/Commode Transfer(FIM): 5 Comprehension(FIM): 7 Expression(FIM): 7 Social Interaction(FIM): 7 Problem Solving(FIM): 5 Memory(FIM): 5 Additional Short Term Goals: 1-Demonstrate ADL Tasks, 2-Verbalize Understanding , 3-ImproveStrength/Monique 1=Demonstrate adherence to instructed precautions during ADL tasks. 2=Patient will verbalize/demonstrate understanding of assistive devices/ modifications for ADL. 3=Patient will improve strength/tolerance for activity to enable patient to perform ADL's. OT Senior Mobile Application Developer Goals Senior Care Goals Time Frame: Dec 30, 2017 Eating (FIM): 7 Eating (QC): 6 Groomin Oral Hygiene (QC): 6 Bathing(FIM): 6 Shower/Bathe Self (QC): 6 Upper Body Dressing(FIM): 6 Upper Body Dressing (QC): 6 Lower Body Dressing(FIM): 6 Lower Body Dressing (QC): 6 On/Off Footwear (QC): 6 Toileting(FIM): 6 Toileting Hygiene (QC): 6 Toilet/Commode Transfer(FIM): 6 Toilet/Commode Transfer (QC): 6 Shower Transfer(FIM): 6 Comprehension(FIM): 7 Expression (FIM): 7 Social Interaction(FIM): 7 Problem Solving(FIM): 6 Memory(FIM): 6 Additional Goals: 1-Demonstrate ADL Tasks, 2-Verbalize Understanding, 3- ImproveStrength/Monique 1=Demonstrate adherence to instructed precautions during ADL tasks. 2=Patient will verbalize/demonstrate understanding of assistive devices/ modifications for ADL. 3=Patient will improve strength/tolerance for activity to enable patient to perform ADL's. OT Education/Plan Problem List/Assessment Pt would benefit from skilled OT to increase her independence in basic self care to allow her to safely return home to live with her Discharge Recommendations Plan/Recommendations: Continue POC (anticipate DC tomorrow) Treatment Plan/Plan of Care Patient would benefit from OT for education, treatment and training to promote independence in ADL's, mobility, safety and/or upper extremity function for ADL' s. Plan of Care: ADL Retraining, Functional Mobility, Group Exercise/Act as Ind ( educaiton, exercise, activity tolerance, functional activities, memory, socialization), UE Funct Exercise/Act, UE Neuromus Re-Ed/Coord Treatment Duration: Dec 30, 2017 Frequency: At least 5 of 7 days/Wk (IRF) Estimated Hrs Per Day: 1.5 hours per day Agreement: Yes Rehab Potential: Good Time/GCodes Start Time: 09:30 Stop Time: 10:30 Total Time Billed (hr/min): 60 Billed Treatment Time visit, ADL 35 minutes, exercise 25 minutes RANCHO QUINTANA OT Dec 20, 2017 11:25
--- NOTE | 2017-12-20 11:30 | Physical Therapy Daily Note ---
PT Daily Note-Current Subjective Pt. agrees to Rx. Feels confident to be up ad bj Pain Numeric Pain Scale: 0-No Pain Mental Status Patient Orientation: Normal For Age Transfers Functional [place] Measure 0=Not Assessed/NA 4=Minimal Assistance 1=Total Assistance 5=Supervision or Setup 2=Maximal Assistance 6=Modified [place] 3=Moderate Assistance 7=Complete IndependenceIRFPAI Quality Coding Scale 6 Independent with activity with or without an assistive device 5 Patient requires set up or clean up by helper. Patient completes activity by themselves 4 Supervision or touching assist (CGA). [place] provide cues , steadying assist 3 The helper provides less than half the effort to complete the activity 2 The helper provides more than half the effort to complete the activity 1 Dependent. The helper does all the effort to complete an activity 7 Patient refused to complete or attempt activity 9 The patient did not perform the activity before the current illness or injury 88 Not attempted due to Medical conditions or safety concerns all TRFs mod I Weight Bearing Right Lower Extremity: Right Weight Bearing/Tolerated Left Lower Extremity: Left Weight Bearing/Tolerated Gait Training Gait Assistive Device: FWW gait 250ft x 2 side step in small spaces, retro gait 10 ft and fig 8s and 360 degree turns, no LOB or dizziness, safe handling Exercises NuStep Minutes: 15 NuStep Workload: 5 Assessment Current Status: Good Progress PT Short Term Goals Short Term Goals Time Frame: Dec 16, 2017 Gait (FIM): 1 Gait Distance Comment: 20' Gait Level of Assist: 4 Gait Assistive Device: FWW PT [employer] Goals Prison Goals PT [employer] Goals Time Frame: Dec 30, 2017 Transfers (B,C,W/C) (FIM): 5 Sit to Lying (QC): 4 Lying-Sitting on Side/Bed(QC): 4 Sit to Stand (QC): 4 Rollin Roll Left to Right (QC): 4 Chair/Bzg-lq-Strru Xfer(QC): 4 Car Transfer (QC): 4 Gait (FIM): 2 Distance: 50' Walk 10 feet (QC): 4 Walk 10ft-Uneven Surface(QC): 4 Walk 50ft with 2 Turns (QC): 4 Gait Level of Assist: 5 Gait Assistive Device: FWW Stairs (FIM): 2 # of Steps: 4 1 Step (curb) (QC): 4 4 Steps (QC): 4 Stairs Level Of Assist: 4 PT Plan Treatment/Plan Treatment Plan: Continue Plan of Care Treatment Plan: Bed Mobility, Concurrent Therapy, Education, Functional Activity Monique, Functional Strength, Group Therapy, Gait, Safety, Therapeutic Exercise, Transfers Treatment Duration: Dec 30, 2017 Frequency: At least 5 of 7 days/Wk (IRF) Estimated Hrs Per Day: 1.5 hours per day Patient and/or Family Agrees t: Yes Safety Risks/Education Patient Education: Gait Training, Transfer Techniques, Correct Positioning, Disease Process, Safety Issues Teaching Recipient: Patient Teaching Methods: Demonstration, Discussion Response to Teaching: Verbalize Understanding, Return Demonstration, Reinforcement Needed Time/GCodes Time In: 1100 Time Out: 1130 Total Billed Treatment Time: 30 Total Billed Treatment 1,EX15m,NM15m G Codes Necessary: EVERETT Andujar OUTCOME ANALYST Dec 20, 2017 11:30
--- NOTE | 2017-12-20 13:21 | D/C HH Face to Face Order ---
D/C Face to Face Orders Instructions for Patient Patient Instructions/FollowUp: Dr. Nicole Physician to follow Patient: Dr. Nicole Discharge Diet for Home: Regular Diet Patient Data-Allergies,Ht & Wt Patient Allergies: Coded Allergies: canagliflozin (Verified Allergy, Severe, LIGHT HEADED/HEADACHES/UTI/FELT LIKE SHE WOULD PASS OUT, 02/18/17) liraglutide (Verified Allergy, Severe, RAPID HEART RATE/HEADACHE/DIZZINESS , 02/18/17) Ndqmqwn-Vgs-Aor Reductase Inhibitor (Verified Adverse Reaction, Severe, MUSCLE PAIN, 02/18/17) Height (Feet): 5 Height (Inches): 3.00 Weight (Pounds): 157 Weight (Ounces): 1.6 Home Health Need/Face to Face Date of Face to Face: Dec 21, 2017 Clinical Findings: Generalized weakness and fatigue, Muscle weakness, Unsteady gait I have seen Pt cwdh-hb-wiol: Yes Discharged To: Home Diagnosis/Conditions: Criticial Illness Myopathy Patient is Homebound due to: Linda fall risk due to instabilty, Muscle weakness Homebound Status Due to the above stated illness, injury or surgical procedure (medical condition or diagnosis) and associated clinical findings, the patient is homebound because of his/her inability to leave home except with aid of a supportive device and/or person AND leaving the home requires a considerable and taxing effort or is medically contraindicated. Pt req the following assistanc: Walker Home Health Nursing Orders Home Health Services Order: Nursing Services, Stable Helper-Evaluate & Treat, Physical Therapy-Evaluate & Treat Home Health Infusion Therapy Line Type: Midline Site Location: Arm-Upper Therapy Orders Therapy Orders: OT (must have SN or PT order), Physical Therapy Therapy Specific Orders: Eval assistive deivces, Teach enviro modifications/ safety, Gait training, Increase strength/endurance, Restore ROM Certify Stmt I certify that this patient is under my care and that I, a nurse practitioner or a physician; a reproductive healthcare assistant working with me, had a face to face encounter that - meets the physician face to face encounter requirements with this patient as dated. I personally scribed for JENN NORRIS MD ([facility]) on 12/20/17 at 13:21. Electronically submitted by Delmy Malave ([id number]). JENN NORRIS MD Dec 20, 2017 13:21
--- NOTE | 2017-12-20 13:38 | Occupational Ther Daily Note ---
OT Current Status-Daily Note Subjective Pt seen in room, up in recliner, agreeable to OT. No pain mentioned. Appearance Alert, cooperative Mental Status/Objective Functional [place] Measure 0=Not Assessed/NA 4=Minimal Assistance 1=Total Assistance 5=Supervision or Setup 2=Maximal Assistance 6=Modified [place] 3=Moderate Assistance 7=Complete [place] ADL-Treatment Functional [place] Measure 0=Not Assessed/NA 4=Minimal Assistance 1=Total Assistance 5=Supervision or Setup 2=Maximal Assistance 6=Modified [place] 3=Moderate Assistance 7=Complete IndependenceIRFPAI Quality Coding Scale 6 Independent with activity with or without an assistive device 5 Patient requires set up or clean up by helper. Patient completes activity by themselves 4 Supervision or touching assist (CGA). [place] provide cues , steadying assist 3 The helper provides less than half the effort to complete the activity 2 The helper provides more than half the effort to complete the activity 1 Dependent. The helper does all the effort to complete an activity 7 Patient refused to complete or attempt activity 9 The patient did not perform the activity before the current illness or injury 88 Not attempted due to Medical conditions or safety concerns Other Treatment Pt was given written instructions for 5 theraband UE exercises using yellow theraband. She read the instructions, did 15 reps of each exercise (she has been doing these same ones), with occasional skilled cues to correct performance. She was able to do do all 5 and had all questions answered to her satisfaction. Pt educ for progressing exercises. To increase overall activity tolerance and increase UE strength for ADLs. Pt left up in recliner, all needs met. Education OT Patient Education: Home exercise program, Purpose of tx/functional activities Teaching Recipient: Patient Teaching Methods: Demonstration, Discussion Response to Teaching: Verbalize Understanding, Return Demonstration OT Short Term Goals Short Term Goals Time Frame: Dec 16, 2017 Eating(FIM): 7 Toileting(FIM): 5 Toilet/Commode Transfer(FIM): 5 Comprehension(FIM): 7 Expression(FIM): 7 Social Interaction(FIM): 7 Problem Solving(FIM): 5 Memory(FIM): 5 Additional Short Term Goals: 1-Demonstrate ADL Tasks, 2-Verbalize Understanding , 3-ImproveStrength/Monique 1=Demonstrate adherence to instructed precautions during ADL tasks. 2=Patient will verbalize/demonstrate understanding of assistive devices/ modifications for ADL. 3=Patient will improve strength/tolerance for activity to enable patient to perform ADL's. OT Insurance Underwriting Assistant Goals Insurance Underwriting Assistant Goals Time Frame: Dec 30, 2017 Eating (FIM): 7 Eating (QC): 6 Groomin Oral Hygiene (QC): 6 Bathing(FIM): 6 Shower/Bathe Self (QC): 6 Upper Body Dressing(FIM): 6 Upper Body Dressing (QC): 6 Lower Body Dressing(FIM): 6 Lower Body Dressing (QC): 6 On/Off Footwear (QC): 6 Toileting(FIM): 6 Toileting Hygiene (QC): 6 Toilet/Commode Transfer(FIM): 6 Toilet/Commode Transfer (QC): 6 Shower Transfer(FIM): 6 Comprehension(FIM): 7 Expression (FIM): 7 Social Interaction(FIM): 7 Problem Solving(FIM): 6 Memory(FIM): 6 Additional Goals: 1-Demonstrate ADL Tasks, 2-Verbalize Understanding, 3- ImproveStrength/Monique 1=Demonstrate adherence to instructed precautions during ADL tasks. 2=Patient will verbalize/demonstrate understanding of assistive devices/ modifications for ADL. 3=Patient will improve strength/tolerance for activity to enable patient to perform ADL's. OT Education/Plan Problem List/Assessment Pt would benefit from skilled OT to increase her independence in basic self care to allow her to safely return home to live with her Discharge Recommendations Plan/Recommendations: Continue POC Treatment Plan/Plan of Care Patient would benefit from OT for education, treatment and training to promote independence in ADL's, mobility, safety and/or upper extremity function for ADL' s. Plan of Care: ADL Retraining, Functional Mobility, Group Exercise/Act as Ind ( educaiton, exercise, activity tolerance, functional activities, memory, socialization), UE Funct Exercise/Act, UE Neuromus Re-Ed/Coord Treatment Duration: Dec 30, 2017 Frequency: At least 5 of 7 days/Wk (IRF) Estimated Hrs Per Day: 1.5 hours per day Agreement: Yes Rehab Potential: Good Time/GCodes Start Time: 13:15 Stop Time: 13:30 Total Time Billed (hr/min): 15 Billed Treatment Time visit, 15 minutes exercise RANCHO QUINTANA OT Dec 20, 2017 13:38
--- NOTE | 2017-12-20 14:55 | Cardiology Progress Note ---
Cardiology SOAP Progress Note Subjective: No cardiac complaints. Objective: I&O/Vital Signs 12/20/17 12/20/17 12/20/17 12/20/17 05:08 08:00 08:10 08:10 Temp 98.2 Pulse 65 70 Resp 18 B/P (MAP) 148/72 (97) 116/61 (79) Pulse Ox 97 97 O2 Delivery Room Air Room Air Room Air 12/20/17 00:00 Intake Total 720 ml Balance 720 ml Weight (Pounds): 157 Weight (Ounces): 1.6 Weight (Calculated Kilograms): 71.804547 Constitutional: appears stated age, AAO x 3, apparent distress, well-developed , well-nourished Respiratory: chest is bilaterally symmetric, other Cardiovascular: regular rate-rhythm, S1 and S2, systolic murmur Gastrointestional: soft, audible bowel sounds Extremities: No normal range of motion, No non-tender, No normal inspection, No pedal edema, No calf tenderness, No normal capillary refill, No pelvis stable , No calf tenderness, No inflammation, No pedal edema, No slow capillary refill , No swelling, No other, No abrasion, No clubbing, No cyanosis, No ecchymosis, No laceration, No no lower extremity edema bilateral, No significant edema, No tenderness, No wound Neurologic/Psychiatric: no motor/sensory deficits, alert, normal mood/affect, oriented x 3, grossly intact, power is 5/5 both on sides Skin: No normal color, No warm/dry, No cyanosis, No cool, No diaphoresis, No damp, No ecchymosis, No jaundice, No mottled, No pallor, No rash, No tattoos/ piercings, No ulcerations, No rash on exposed areas, No ulcerations on exposed areas, No other Results/Procedures: Labs Laboratory Tests 12/19/17 15:48: Glucometer 73 12/19/17 20:36: Glucometer 111H 12/20/17 05:38: Glucometer 114H 12/20/17 05:49: Hemoglobin 9.5L, Hematocrit 30L, Sodium Level 138, Potassium Level 3.9, Chloride Level 101, Carbon Dioxide Level 25, Anion Gap 12, Blood Urea Nitrogen 14, Creatinine 1.02, Estimat Glomerular Filtration Rate 53, BUN/Creatinine Ratio 14, Glucose Level 104, Calcium Level 8.8, B-Type Natriuretic Peptide 2411.4H 12/20/17 11:29: Glucometer 276H A/P: Assessment/Dx: Admission Diagnosis Anemia Edema Pneumonia Hypertension, Aortic stenosis, Mitral regurgitation, CAD Plan: Assessment/Plan Dr. Owens to take over cardiology care from tomorrow. Peripheral edema, Congestive heart failure, maintained on daily Lasix at this time, continue to monitor Hypertension, continue current medication monitor blood pressure Pneumonia with sepsis - management per Medical and Pulmonary Services Hemoptysis, likely due to pneumonia, now resolved Blood clots in stools, suggestive of GI bleed or swallowed blood from hemoptysis. W/u for this is with the [facility] PAF, first documented on tele strips at [facility] in early 2016. Currently in NSR H/o ischemic cm. LVEF on 02/18/17 was 35%. Echo of 12/03/17: LVEF 60-65%, LVH, grade 1 rehman dysfunction, mild to mod MR, mod to severe with valve area approx 1.1 sq cm and gradient approx 25 mmHg, PASP 25 mmHg, BNP is elevated, started on Lasix CAD. S/p prox LAD stenting by Dr Obrien at [facility] on 02/20/17: Promus 2.5x24. Cath on 02/18/17 prior to cor stenting showed dual LAD, one of which was proximally occluded and the other was severely diseased. Rest of the cors had mod dz H/o ischemic cardiomyopathy. MPI of 01/12/17: anteroapical infarction w/o significant ischemia; LVEF 39% Dizziness and vertigo, improved after reduction of anti-htn and Invokana treatment in early Apr 2015. MRI head on 05/10/15 (Dr Mariano) did not show lesions other than possibility of chronic microvascular disease Valvular heart disease. Cath of 02/18/17 showed mod MR and a gradient across AoV of 25-30 mmHg. Mod with valve area 1.4 cm sq and mean gradient across aortic valve of 23 mmHg on echo of 01/08/17. Subsequent echo as noted above DM II, followed by primary care team CKD stage 3, likely diabetic nephropathy. eGFR on 05/25/17 is 44 Hyperlipidemia, but has intolerance to statins (severe joint pains) Hypothyroidism, treated with thyroid replacement therapy. TSH normal (2.19) on Bilateral leg and foot discomfort which has been diagnosed as neuropathy. Normal bilat EDDY in June 2014 Mild bilat carotid arterial disease on carotid u/s of 06/08/17 Abn ECG. ECG of 05/13/17: NSR, old ASMI H/o surgeries: S/p hysterectomy w/o oophorectomy; S/p bilateral knee replacement ; H/o R rotator cuff surgery Thank you for your consultation. Please call me if you have any questions. Piyush Cartagena MD, FACP, FACC, FSCAI, FHRS, CCDS Interventional Cardiology Cardiac Electrophysiology Vascular Medicine and Endovascular Interventions Migue CARTAGENA MD Dec 20, 2017 2:55 pm
--- NOTE | 2017-12-20 15:14 | Speech Therapy Daily Note ---
Speech Daily Progress Note Subjective Date Seen by Provider: Dec 20, 2017 Time Seen by Provider: 11:30 Pt up in chair. Pleasant and cooperative. Pain Numeric Pain Scale: 0-No Pain Objective Memory - Pt presented with a picture. She was to study it in detail. Pt presented with a second picture that looked like the initial picture but had some changes in it. Pt was to determine at 2 differences between the 2 pictures. Pt was 100% accurate. Assessment Assessment Current Status: Good Progress Communication Comprehension: 7 Expression: 7 Social Cognition Social Interaction: 7 Problem Solvin Memory: 6 Speech Short Term Goals Short Term Goals Short Term Goals Pt will complete problem solving tasks with at least 85% accuracy and min assist. Met 12/15/2017 Pt will complete memory activities with at least 80% accuracy and min assist. Met 12/15/2017 Time Frame-ST week Comprehension: 7 Expression: 7 Social Interaction: 7 Problem Solvin Memory: 5 Speech [facility] Goals [facility] Goals Pt will demonstrate functional cognition for safety and maximum independence for the home setting. Met Time Frame: 2-3 weeks Comprehension: 7 Expression: 7 Social Interaction: 7 Problem Solvin Memory: 6 Speech-Plan Patient/Family Goals Patient/Family Goals: to return home Treatment Plan Speech Therapy Treatment Plan: Discontinue ST, Goals Met Pt is discharged from [facility] due to goals met. She is going to be dc'd to home on 12/21/2017. Treatment Duration: Dec 21, 2017 Frequency: Modified Program (IRF) (0) Estimated Hrs Per Day: Other (0) Rehab Potential: Good Pt/Family Agrees to Plan: Yes Safety Risks/Education Teaching Recipient: Patient Teaching Methods: Discussion Response to Teaching: Verbalize Understanding Time Speech Therapy Time In: 11:30 Speech Therapy Time Out: 12:00 Total Billed Time: 30 Billed Treatment Time 1, SLTS No ELIGIO BLUE Dec 20, 2017 15:14
[2017-12-20 17:46] VITALS: BP 108/67
--- NOTE | 2017-12-20 19:18 | Progress Note (SOAP) ---
Subjective Time Seen by a Provider: 19:14 Subjective/Events-last exam Patient has no complaints today. Patient excited about going home tomorrow. Patient has been improved much according to her Objective Exam Vital Signs Date Time Temp Pulse Resp B/P (MAP) Pulse Ox O2 Delivery O2 Flow Rate FiO2 12/20/17 17:46 97.7 66 16 108/67 (81) 97 Room Air 12/20/17 08:10 97 Room Air 12/20/17 08:10 70 116/61 (79) 12/20/17 08:00 Room Air 12/20/17 05:08 98.2 65 18 148/72 (97) 97 Room Air 12/19/17 20:10 Room Air I & O 12/20/17 07:00 Intake Total 920 ml Balance 920 ml Capillary Refill : General Appearance: No Apparent Distress, WD/WN HEENT: Normal ENT Inspection Neck: Normal Inspection Respiratory: Lungs Clear, No Accessory Muscle Use, No Respiratory Distress Cardiovascular: Regular Rate, Rhythm Gastrointestinal: non tender, soft Results Lab Laboratory Tests 12/19/17 20:36: Glucometer 111H 12/20/17 05:38: Glucometer 114H 12/20/17 05:49: Hemoglobin 9.5L, Hematocrit 30L, Sodium Level 138, Potassium Level 3.9, Chloride Level 101, Carbon Dioxide Level 25, Anion Gap 12, Blood Urea Nitrogen 14, Creatinine 1.02, Estimat Glomerular Filtration Rate 53, BUN/Creatinine Ratio 14, Glucose Level 104, Calcium Level 8.8, B-Type Natriuretic Peptide 2411.4H 12/20/17 11:29: Glucometer 276H 12/20/17 16:52: Glucometer 120H Assessment/Plan Assessment/Plan Assess & Plan/Chief Complaint Critical illness. Myopathy. Pneumonia. Sepsis. Anemia. Patient excited about going home tomorrow Clinical Quality Measures DVT/VTE Risk/Contraindication: Risk Factor Score Per Nursin RFS Level Per Nursing on Admit: 3=High MARITO NANCE DO Dec 20, 2017 19:18
[2017-12-20] MEDS: eZETimibe 10 MG (ZETIA) TABLET PO SCH (20:31)
[2017-12-20] MEDS: diphenhydrAMINE 25 MG TAB (BENADRYL) PO SCH (20:31)
[2017-12-20] MEDS: ACETAMINOPHEN 500 MG TAB (TYLENOL) PO SCH (20:31)
[2017-12-21] MEDS: NYSTATIN ORAL SUSP 5 ML UDC PO SCH ×2 (00:42→06:35)
[2017-12-21 05:39] VITALS: BP 128/69
[2017-12-21] MEDS: inSUlin ASPART (NovoLOG) 1 UNIT/0.01 ML (CHARGE PER UNIT) SC SCH (06:35)
[2017-12-21] MEDS: PANTOPRAZOLE 40 MG (PROTONIX) TAB PO SCH (06:35)
[2017-12-21] MEDS: LEVOTHYROXINE 50 MCG (LEVOTHROID) TAB PO SCH (06:35)
[2017-12-21] MEDS: metFORMIN 500 MG (GLUCOPHAGE) TAB PO SCH (06:35)
--- NOTE | 2017-12-21 07:33 | Progress Note (SOAP) ---
Subjective Time Seen by a Provider: 07:32 Subjective/Events-last exam Patient to be discharged today patient has no complaints patient rated go home Objective Exam Vital Signs Date Time Temp Pulse Resp B/P (MAP) Pulse Ox O2 Delivery O2 Flow Rate FiO2 12/21/17 05:39 97.4 68 18 128/69 (88) 95 Room Air 12/20/17 21:23 Room Air 12/20/17 20:40 Room Air 12/20/17 17:46 97.7 66 16 108/67 (81) 97 Room Air 12/20/17 08:10 97 Room Air 12/20/17 08:10 70 116/61 (79) 12/20/17 08:00 Room Air I & O 12/21/17 07:00 Intake Total 1420 ml Balance 1420 ml Capillary Refill : General Appearance: No Apparent Distress, WD/WN HEENT: Normal ENT Inspection Neck: Full Range of Motion, Normal Inspection Respiratory: No Accessory Muscle Use, No Respiratory Distress Cardiovascular: Regular Rate, Rhythm, Other (Murmur noted) Results Lab Laboratory Tests 12/20/17 11:29: Glucometer 276H 12/20/17 16:52: Glucometer 120H 12/20/17 20:08: Glucometer 195H 12/21/17 05:15: Glucometer 112H Assessment/Plan Assessment/Plan Assess & Plan/Chief Complaint Critical illness. Myopathy. Pneumonia. Sepsis. Anemia. Patient excited about going home tomorrow. . 12/21/17. Pneumonia. Hypertension. Aortic stenosis. Mitral regurgitation. Coronary artery disease. Critical illness Clinical Quality Measures DVT/VTE Risk/Contraindication: Risk Factor Score Per Nursin RFS Level Per Nursing on Admit: 3=High MARITO NANCE DO Dec 21, 2017 07:33
--- NOTE | 2017-12-21 09:20 | Therapy Team Discharge Summary ---
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 Upon admission patient performed supine <-> sit with max assist, sit to stand min assist, stand pivot transfers CGA, car transfer min assist, ambulated 10' with a rolling walker with CGA, no stairs at this time. Patient has been performing bed mobility and transfer training, balance and endurance training, functional strengthening, stair training, and education. Patient has made good progress and has met all of her senior care goals. Now, patient is mod I with bed mobility and transfers, car transfer mod I, ambulates 250' with a rolling walker with mod I (including 50' with at least 2 turns of 90 degrees and 10' over an uneven surface), and can go up and down 12 steps using 2 handrails with mod I. Patient is being discharged from this facility today and will be discharged from PT at this time. Occupational Therapy Decreased Activ Tolerance, Decreased UE Strength, Dependent Transfers, Edema, Impaired Coordination, Impaired Self-Care Skills, Restricted Funct UE ROM PT Alf Goals Alf Goals PT Alf Goals Time Frame: Dec 30, 2017 Transfers (B,C,W/C) (FIM): 5 Roll Left to Right (QC): 4 Sit to Lying (QC): 4 Lying-Sitting on Side/Bed(QC): 4 Sit to Stand (QC): 4 Chair/Xcf-kp-Ascou Xfer(QC): 4 Car Transfer (QC): 4 Gait (FIM): 2 Distance: 50' Walk 10 feet (QC): 4 Walk 10ft-Uneven Surface(QC): 4 Walk 50ft with 2 Turns (QC): 4 Gait Level of Assist: 5 Gait Assistive Device: FWW Stairs (FIM): 2 # of Steps: 4 1 Step (curb) (QC): 4 4 Steps (QC): 4 Stairs Level Of Assist: 4 OT Alf Goals Alf Goals Time Frame: Dec 30, 2017 Eating (FIM): 7 Eating (QC): 6 Oral Hygiene (QC): 6 Grooming(FIM): 6 Bathing(FIM): 6 Shower/Bathe Self (QC): 6 Upper Body Dressing(FIM): 6 Upper Body Dressing (QC): 6 Lower Body Dressing(FIM): 6 Lower Body Dressing (QC): 6 On/Off Footwear (QC): 6 Toileting(FIM): 6 Toileting Hygiene (QC): 6 Toilet/Commode Transfer(FIM): 6 Toilet/Commode Transfer (QC): 6 Shower Transfer(FIM): 6 Comprehension(FIM): 7 Expression (FIM): 7 Social Interaction(FIM): 7 Problem Solving(FIM): 6 Memory(FIM): 6 Additional Goals: 1-Demonstrate ADL Tasks, 2-Verbalize Understanding, 3- ImproveStrength/Monique 1=Demonstrate adherence to instructed precautions during ADL tasks. 2=Patient will verbalize/demonstrate understanding of assistive devices/ modifications for ADL. 3=Patient will improve strength/tolerance for activity to enable patient to perform ADL's. Speech Nuclear Medicine Officer Goals Alf Goals Pt will demonstrate functional cognition for safety and maximum independence for the home setting. Met 108/2018 Time Frame: 2-3 weeks Comprehension: 7 Expression: 7 Social Interaction: 7 Problem Solvin Memory: 6 LINDA BARRIGA PT Dec 21, 2017 09:20
--- NOTE | 2017-12-21 09:40 | Progress Note-Cardiology ---
Cardiology SOAP Progress Note Subjective: Sitting up in a chair at the bedside. Spouse at the bedside. States she is going home today. Reports she is feeling good. No c/o CP, palpitations, syncope or near syncope. No c/o dyspnea. Objective: I&O/Vital Signs 12/21/17 12/21/17 05:39 09:56 Temp 97.4 Pulse 68 Resp 18 B/P (MAP) 128/69 (88) Pulse Ox 95 96 O2 Delivery Room Air Room Air 12/21/17 00:00 Intake Total 720 ml Balance 720 ml Weight (Pounds): 153 Weight (Ounces): 4.8 Weight (Calculated Kilograms): 69.052621 Constitutional: AAO x 3, well-developed, well-nourished Respiratory: chest is bilaterally symmetric, lungs clear to auscultation Cardiovascular: regular rate-rhythm; No JVD; S1 and S2, systolic murmur Gastrointestional: soft, audible bowel sounds Extremities: no lower extremity edema bilateral Neurologic/Psychiatric: grossly intact, power is 5/5 both on sides Results/Procedures: Labs Laboratory Tests 12/20/17 11:29: Glucometer 276H 12/20/17 16:52: Glucometer 120H 12/20/17 20:08: Glucometer 195H 12/21/17 05:15: Glucometer 112H A/P: Assessment: Hypertension, now better controll Pneumonia with sepsis - management per Medical and Pulmonary Services Hemoptysis, likely due to pneumonia, now resolved Blood clots in stools, suggestive of GI bleed or swallowed blood from hemoptysis. W/u for this is with the [employer] Chronic diastolic CHF PAF, first documented on tele strips at [facility]hab in early 2016. Currently in NSR H/o ischemic cm. LVEF on 02/18/17 was 35%. Echo of 12/03/17: LVEF 60-65%, LVH, grade 1 rehman dysfunction, mild to mod MR, mod to severe with valve area approx 1.1 sq cm and gradient approx 25 mmHg, PASP 25 mmHg CAD. S/p prox LAD stenting by Dr Obrien at [facility] on 02/20/17: Promus 2.5x24. Cath on 02/18/17 prior to cor stenting showed dual LAD, one of which was proximally occluded and the other was severely diseased. Rest of the cors had mod dz H/o ischemic cardiomyopathy. MPI of 01/12/17: anteroapical infarction w/o significant ischemia; LVEF 39% Dizziness and vertigo, improved after reduction of anti-htn and Invokana treatment in early Apr 2015. MRI head on 05/10/15 (Dr Mariano) did not show lesions other than possibility of chronic microvascular disease Valvular heart disease. Cath of 02/18/17 showed mod MR and a gradient across AoV of 25-30 mmHg. Mod with valve area 1.4 cm sq and mean gradient across aortic valve of 23 mmHg on echo of 01/08/17. Subsequent echo as noted above DM II CKD stage 3, likely diabetic nephropathy. eGFR on 05/25/17 is 44 Hyperlipidemia, but has intolerance to statins (severe joint pains) Hypothyroidism, treated with thyroid replacement therapy. TSH normal (2.19) on Bilateral leg and foot discomfort which has been diagnosed as neuropathy. Normal bilat EDDY in June 2014 Mild bilat carotid arterial disease on carotid u/s of 06/08/17 Abn ECG. ECG of 05/13/17: NSR, old ASMI H/o surgeries: S/p hysterectomy w/o oophorectomy; S/p bilateral knee replacement ; H/o R rotator cuff surgery Plan: * Continue current medication regimen * Eliquis has been resumed at a lower dose * Plan is for discharge home today * Out pt f/u with us in 2 weeks VINEET DASILVA Dec 21, 2017 09:40
[2017-12-21] MEDS: MAGNESIUM OXIDE (MAG-OX)400 MG TAB PO SCH (09:42)
[2017-12-21] MEDS: DIGOXIN 0.125 MG (LANOXIN) TAB PO SCH (09:43)
[2017-12-21] MEDS: OMEGA 3 (FISH OIL) 1000 MG CAP PO SCH (09:43)
[2017-12-21] MEDS: ASPIRIN 81 MG CHEW (CHILDREN'S ASA) PO SCH (09:43)
[2017-12-21] MEDS: SACUBITRIL/VALSARTAN 24/26 MG (ENTRESTO) TABLET PO SCH (09:43)
[2017-12-21] MEDS: FUROSEMIDE 40 MG (LASIX) TAB PO SCH (09:43)
[2017-12-21] MEDS: GABAPENTIN 600 MG (NEURONTIN) TAB PO SCH (09:43)
[2017-12-21] MEDS: APIXABAN 2.5 MG (ELIQUIS) TABLET PO SCH (09:43)
[2017-12-21] MEDS: meTOprolol SUCCINATE 100 MG (TOPROL XL) TAB PO SCH (09:44)
[2017-12-21] MEDS: inSUlin DETERMIR 1 UNIT/0.01 ML (LEVEMIR) CHARGE PER UNIT SQ SCH (09:44)
[2017-12-21] MEDS: amLODIPine 5 MG (NORVASC) TAB PO SCH (09:44)
[2017-12-21] MEDS ORDERED: POTA20TA8 PO (10:11)
[2017-12-21] MEDS ORDERED: AMLO5TAB7 PO (10:11)
[2017-12-21] MEDS ORDERED: FURO40TA4 PO (10:11)
[2017-12-21] MEDS ORDERED: METO-395 PO (10:11)
[2017-12-21] MEDS ORDERED: ASPI-999 PO (10:11)
[2017-12-21] MEDS ORDERED: APIX2.5T PO (10:11)
--- NOTE | 2017-12-21 11:19 | Therapy Team Discharge Summary ---
Therapy Discharge Summary Discharge Recommendations Date of Discharge 12-20-17 Therapy D/C Recommendations: Home w/ Family Support Occupational Therapy Pt. seen by occupational therapy to increase overall strength and independence with daily tasks. Pt. has met all goals and plans to discharge home with family. Pt. has all needed equipment. Pt. has been up ad bj in room. PT Skilled Nursing Goals Site Specialist Goals PT Skilled Nursing Goals Time Frame: Dec 30, 2017 Transfers (B,C,W/C) (FIM): 5 Roll Left to Right (QC): 4 Sit to Lying (QC): 4 Lying-Sitting on Side/Bed(QC): 4 Sit to Stand (QC): 4 Chair/Wyc-mw-Cnfbr Xfer(QC): 4 Car Transfer (QC): 4 Gait (FIM): 2 Distance: 50' Walk 10 feet (QC): 4 Walk 10ft-Uneven Surface(QC): 4 Walk 50ft with 2 Turns (QC): 4 Gait Level of Assist: 5 Gait Assistive Device: FWW Stairs (FIM): 2 # of Steps: 4 1 Step (curb) (QC): 4 4 Steps (QC): 4 Stairs Level Of Assist: 4 OT Site Specialist Goals Site Specialist Goals Time Frame: Dec 30, 2017 Eating (FIM): 7 (met) Eating (QC): 6 (met) Oral Hygiene (QC): 6 (met) Grooming(FIM): 6 (met) Bathing(FIM): 6 (met) Shower/Bathe Self (QC): 6 (met) Upper Body Dressing(FIM): 6 (met) Upper Body Dressing (QC): 6 (met) Lower Body Dressing(FIM): 6 (met) Lower Body Dressing (QC): 6 (met) On/Off Footwear (QC): 6 (met) Toileting(FIM): 6 (met) Toileting Hygiene (QC): 6 (met) Toilet/Commode Transfer(FIM): 6 (met) Toilet/Commode Transfer (QC): 6 (met) Shower Transfer(FIM): 6 (met) Comprehension(FIM): 7 Expression (FIM): 7 Social Interaction(FIM): 7 Problem Solving(FIM): 6 Memory(FIM): 6 Additional Goals: 1-Demonstrate ADL Tasks, 2-Verbalize Understanding, 3- ImproveStrength/Monique 1=Demonstrate adherence to instructed precautions during ADL tasks. 2=Patient will verbalize/demonstrate understanding of assistive devices/ modifications for ADL. 3=Patient will improve strength/tolerance for activity to enable patient to perform ADL's. Speech Site Specialist Goals Site Specialist Goals Pt will demonstrate functional cognition for safety and maximum independence for the home setting. Met 108/2018 Time Frame: 2-3 weeks Comprehension: 7 Expression: 7 Social Interaction: 7 Problem Solvin Memory: 6 LOLIS MORRIS OT Dec 21, 2017 11:19
[2017-12-21 11:30] VITALS: BP 128/69
--- NOTE | 2017-12-22 08:18 | Therapy Team Discharge Summary ---
Therapy Discharge Summary Discharge Recommendations Date of Discharge Dec 21, 2017 at 11:30 Therapy D/C Recommendations: Home w/ Family Support Speech-Language Pathology Pt was admitted to ARU with myotomy. Upon initial evaluation pt was noted to have mild-moderate short-term memory and problem solving skills. Pt participated in skilled ST working on these areas. Pt completed these activities with high levels of accuracy 85-100% accuracy. Pt met both her STGs and LTGs and was discharged to home. No further skilled ST services are warranted. Pt is dc'd from skilled ST. PT Digital Marketer Goals Fpc Goals PT Digital Marketer Goals Time Frame: Dec 30, 2017 Transfers (B,C,W/C) (FIM): 5 Roll Left to Right (QC): 4 Sit to Lying (QC): 4 Lying-Sitting on Side/Bed(QC): 4 Sit to Stand (QC): 4 Chair/Zca-xl-Zynoj Xfer(QC): 4 Car Transfer (QC): 4 Gait (FIM): 2 Distance: 50' Walk 10 feet (QC): 4 Walk 10ft-Uneven Surface(QC): 4 Walk 50ft with 2 Turns (QC): 4 Gait Level of Assist: 5 Gait Assistive Device: FWW Stairs (FIM): 2 # of Steps: 4 1 Step (curb) (QC): 4 4 Steps (QC): 4 Stairs Level Of Assist: 4 OT Fpc Goals Digital Marketer Goals Time Frame: Dec 30, 2017 Eating (FIM): 7 (met) Eating (QC): 6 (met) Oral Hygiene (QC): 6 (met) Grooming(FIM): 6 (met) Bathing(FIM): 6 (met) Shower/Bathe Self (QC): 6 (met) Upper Body Dressing(FIM): 6 (met) Upper Body Dressing (QC): 6 (met) Lower Body Dressing(FIM): 6 (met) Lower Body Dressing (QC): 6 (met) On/Off Footwear (QC): 6 (met) Toileting(FIM): 6 (met) Toileting Hygiene (QC): 6 (met) Toilet/Commode Transfer(FIM): 6 (met) Toilet/Commode Transfer (QC): 6 (met) Shower Transfer(FIM): 6 (met) Comprehension(FIM): 7 Expression (FIM): 7 Social Interaction(FIM): 7 Problem Solving(FIM): 6 Memory(FIM): 6 Additional Goals: 1-Demonstrate ADL Tasks, 2-Verbalize Understanding, 3- ImproveStrength/Monique 1=Demonstrate adherence to instructed precautions during ADL tasks. 2=Patient will verbalize/demonstrate understanding of assistive devices/ modifications for ADL. 3=Patient will improve strength/tolerance for activity to enable patient to perform ADL's. Speech Digital Marketer Goals Fpc Goals Pt will demonstrate functional cognition for safety and maximum independence for the home setting. Met 108/2018 Time Frame: 2-3 weeks Comprehension: 7 Expression: 7 Social Interaction: 7 Problem Solvin Memory: 6 ELIGIO BLUE Dec 22, 2017 08:18
== END 2017-12-21 11:30 | disposition home health service (06) | DRG 91 ==
PROVIDERS: ADMIT Physical Medicine & Rehabilitation; ATTEND Physical Medicine & Rehabilitation
DX: G72.81 Critical illness myopathy (principal); J18.9 Pneumonia, unspecified organism; I13.0 Hypertensive heart and chronic kidney disease with heart failure and stage 1 through stage 4 chronic kidney disease, or unspecified chronic kidney disease; N18.3 Chronic kidney disease, stage 3 (moderate); I50.32 Chronic diastolic (congestive) heart failure; E11.21 Type 2 diabetes mellitus with diabetic nephropathy; N17.9 Acute kidney failure, unspecified; R04.2 Hemoptysis; J98.11 Atelectasis; I25.5 Ischemic cardiomyopathy; I08.0 Rheumatic disorders of both mitral and aortic valves; N39.0 Urinary tract infection, site not specified; I25.10 Atherosclerotic heart disease of native coronary artery without angina pectoris; I48.0 Paroxysmal atrial fibrillation; E87.6 Hypokalemia; E83.42 Hypomagnesemia; D64.9 Anemia, unspecified; K21.0 Gastro-esophageal reflux disease with esophagitis; E78.00 Pure hypercholesterolemia, unspecified; E78.5 Hyperlipidemia, unspecified; E03.9 Hypothyroidism, unspecified; E11.51 Type 2 diabetes mellitus with diabetic peripheral angiopathy without gangrene; K44.9 Diaphragmatic hernia without obstruction or gangrene; M54.9 Dorsalgia, unspecified; F41.9 Anxiety disorder, unspecified; F32.9 Major depressive disorder, single episode, unspecified; S00.83XA Contusion of other part of head, initial encounter; Z79.4 Long term (current) use of insulin; Z95.5 Presence of coronary angioplasty implant and graft; W18.11XA Fall from or off toilet without subsequent striking against object, initial encounter
CPT/HCPCS: 36415; 71045; 80048; 80053; 82728; 82962; 83540; 83735; 83880; 85014; 85018; 85025; 85027; 86850; 86900; 86901; 86920; 94640; 94760

== ENCOUNTER → 2018-02-24 | Outpatient (CLI) | payer MEDICARE ==
[~2018-02-24] MED LIST changes: +AMLO5TAB7 PO; +APIX2.5T PO
--- NOTE | 2018-02-24 11:28 | Diagnostic Imaging Report ---
INDICATION: Low back pain. EXAMINATION: Lumbar spine. FINDINGS: AP and lateral views of the lumbar spine show normal alignment. There is some loss of height of L3 involving the superior endplate. The other vertebral body heights are normal. IMPRESSION: Compression fracture involving the superior endplate of L3. This is new since an MRI from 11/26/2014 but it is indeterminate if this is acute or old. Dictated by: Dictated on workstation # [id number]
== END ==
LOC: RAD 09:56
PROVIDERS: ATTEND Nurse Practitioner Family
DX: S32.030A Wedge compression fracture of third lumbar vertebra, initial encounter for closed fracture (principal)
CPT/HCPCS: 72100

== ENCOUNTER → 2018-03-02 | Outpatient (CLI) | payer MEDICARE ==
--- NOTE | 2018-03-02 11:34 | Diagnostic Imaging Report ---
PROCEDURE: MRI lumbar spine. TECHNIQUE: Multiplanar, multisequence MRI of the lumbar spine was performed without contrast. INDICATION: Backache. Bilateral feet numbness. COMPARISON: 11/26/2014. FINDINGS: For the purposes of this exam, last well-formed disc space is denoted the L5-S1 level. Static alignment is maintained. There is no significant hannah or retrolisthesis. There is no evidence of jumped facets. Vertebral body heights are maintained. There is no evidence of acute fracture. Marrow signal is normal throughout. Note is made of benign T12 hemangioma. There is mild multilevel intervertebral disc height loss. Visualized portions of the distal cord are unremarkable. Conus terminates at approximately the L1-L2 level. No abnormal intrathecal filling defects are seen. Evaluation of the pre and paravertebral soft tissue structures demonstrates multiple areas of focal cortical and parenchymal defects of the left kidney, stable compared to prior exam. Findings can be seen with prior infection or infarction. Axial images demonstrate the following: L1-L2: There is mild broad-based posterior disc bulge. This results in minimal effacement of the anterior thecal sac. Neuroforamen are unremarkable. L2-L3: There is slight broad-based posterior disc bulge. This results in mild narrowing of the bilateral neuroforamen and minimal effacement of the anterior thecal sac. L3-L4: There are mild bilateral posterior disc bulges and bilateral ligamentum flavum laxity and facet arthropathy. There is no significant spinal canal stenosis. There is minimal narrowing of the bilateral neuroforamen. L4-L5: There is broad-based posterior disc bulge, bilaterally ligamentum flavum laxity, and facet arthropathy. As a result, there is moderate stenosis of the spinal canal and mild narrowing of the bilateral neuroforamen. L5-S1: There is slight broad-based posterior disc bulge and bilateral facet arthropathy. As a result, there is mild narrowing of the bilateral neuroforamen. Spinal canal is unremarkable. IMPRESSION: 1. Mild multilevel degenerative changes of the lumbar spine, greatest at the L4-L5 level as described above. 2. No acute fracture or dislocation. Dictated by: Dictated on workstation # [id number]
== END ==
LOC: RAD 10:04
PROVIDERS: ATTEND Nurse Practitioner Family
DX: M51.27 Other intervertebral disc displacement, lumbosacral region (principal); M46.87 Other specified inflammatory spondylopathies, lumbosacral region; M48.07 Spinal stenosis, lumbosacral region; D18.09 Hemangioma of other sites; M51.36 Other intervertebral disc degeneration, lumbar region; M47.816 Spondylosis without myelopathy or radiculopathy, lumbar region
CPT/HCPCS: 72148

== ENCOUNTER → 2018-03-28 | Outpatient (CLI) | payer MEDICARE ==
[~2018-03-28] MED LIST changes: +ACHD5005 PO; +ASPI-586 PO; +POTA-51 PO
--- NOTE | 2018-03-28 15:38 | Diagnostic Imaging Report ---
INDICATION: Abdominal pain and nausea. TECHNIQUE: Gallbladder sonography was performed in the routine fashion. FINDINGS: The liver shows normal echogenicity with no focal lesions. The gallbladder shows some mild stones versus sludge in the gallbladder fundus with mild gallbladder wall thickening. The common duct measures 5.8 mm. The pancreas is obscured by overlying bowel. The right kidney measures 10.6 cm in length. There is no ascites. IMPRESSION: There are gallstones in the gallbladder fundus with mild gallbladder wall thickening. The common duct is not appreciably dilated. There is no other focal abnormality. The sonographic Smith sign is positive. If there is clinical suspicion of acute cholecystitis, one might consider a Nuclear hepatobiliary study. Dictated by: Dictated on workstation # [id number]
== END ==
LOC: RAD 14:46
PROVIDERS: ATTEND Family Medicine
DX: K80.20 Calculus of gallbladder without cholecystitis without obstruction (principal)
CPT/HCPCS: 76705

== ENCOUNTER 2018-03-29 11:49 | Outpatient (CLI) | payer MEDICARE ==
[~2018-03-29] VITALS: Ht 160 cm; Wt 65.3 kg
[~2018-03-29 11:49] MED LIST changes: -ACHD5005 PO; -ASPI-586 PO; -POTA-51 PO
[2018-03-29] MEDS ORDERED: ASPI-586 PO (14:28)
[2018-03-29] MEDS ORDERED: POTA-51 PO (14:28)
[2018-03-29] MEDS ORDERED: APIX2.5T PO (14:28)
[2018-03-29] MEDS ORDERED: METO-395 PO (14:28)
[2018-03-29] MEDS ORDERED: FURO40TA4 PO (14:28)
[2018-03-30] MEDS ORDERED: ACHD5005 PO (10:56)
== END 2018-03-29 14:40 | disposition home or self-care (01) ==
LOC: PREOP 11:49
PROVIDERS: ATTEND Surgery
DX: Z01.818 Encounter for other preprocedural examination (principal)

== ENCOUNTER 2018-03-30 08:47 | Day surgery (SDC) | payer MEDICARE ==
[~2018-03-30] VITALS: Ht 160 cm; Wt 65.3 kg
[~2018-03-30 08:47] MED LIST changes: +ASPI-586 PO; +POTA-51 PO
[2018-03-30 09:05] VITALS: BP 141/60
[2018-03-30] MEDS ORDERED: metroNIDAZOLE 500MG/100ML IVPB 100 ML ONE (09:34)
[2018-03-30] MEDS ORDERED: NS (IVPB) 50 ML ONE (09:34)
[2018-03-30] MEDS ORDERED: ceFAZolin 1,000 MG/10 ML (ANCEF) VIAL ONE (09:34)
[2018-03-30 09:38] LABS: BASOPHILS % (AUTO) 1 % (0-10); EOSINOPHILS # (AUTO) 0.1 10^3/uL (0.0-0.3); EOSINOPHILS % (AUTO) 1 % (0-10); HEMATOCRIT 34 % (35-52); HEMOGLOBIN 11.3 G/DL (11.5-16.0); LYMPHOCYTES # (AUTO) 1.4 X 10^3 (1.0-4.0); LYMPHOCYTES % (AUTO) 26 % (12-44); MEAN CORPUSCULAR HEMOGLOBIN 29 PG (25-34); MEAN CORPUSCULAR HGB CONC 33 G/DL (32-36); MEAN CORPUSCULAR VOLUME 87 FL (80-99); MONOCYTES # (AUTO) 0.4 X 10^3 (0.0-1.0); MONOCYTES % (AUTO) 7 % (0-12); NEUTROPHILS # (AUTO) 3.6 X 10^3 (1.8-7.8); NEUTROPHILS % (AUTO) 66 % (42-75); PLATELET COUNT 346 10^3/uL (130-400); RED BLOOD COUNT 3.87 10^6/uL (4.35-5.85); RED CELL DISTRIBUTION WIDTH 13.4 % (10.0-14.5); WHITE BLOOD COUNT 5.5 10^3/uL (4.3-11.0)
[2018-03-30] MEDS ORDERED: fentaNYL INJECTION 100 MCG/2 ML AMP IV ONE (09:45)
[2018-03-30] MEDS ORDERED: ONDANSETRON 4 MG/2 ML (SDV) Z0FRAN IV ONE (09:45)
[2018-03-30] MEDS ORDERED: FAMOTIDINE 20MG/2ML IV (PEPCID) IV ONE (09:45)
[2018-03-30] MEDS ORDERED: MIDAZOLAM 2 MG/2 ML (VERSED) VIAL IV ONE (09:45)
[2018-03-30] MEDS ORDERED: metroNIDAZOLE 500MG/100ML IVPB 100 ML IV ONE (10:00)
[2018-03-30] MEDS ORDERED: ceFAZolin INJECTION 1,000 MG in NS (IVPB) 50 ML IV ONE (10:00)
[2018-03-30] MEDS: LACTATED RINGERS 1,000 ML IV PRN ×2 (10:01→11:15)
[2018-03-30 10:05] LABS: ALBUMIN 4.3 GM/DL (3.2-4.5); BILIRUBIN,TOTAL 0.4 MG/DL (0.1-1.0); CALCIUM 9.2 MG/DL (8.5-10.1); CREATININE SERUM 1.18 MG/DL (0.60-1.30); POTASSIUM 4.4 MMOL/L (3.6-5.0); TOTAL PROTEIN 6.7 GM/DL (6.4-8.2)
[2018-03-30] MEDS ORDERED: BUP/EPI 0.5% 1:200,000 (SENSORCAINE) 30 ML VIAL ONE (10:25)
[2018-03-30] MEDS ORDERED: LIDOCAINE PF 2% 5 ML (XYLOCAINE) VIAL ONE (10:26)
[2018-03-30] MEDS ORDERED: ROCURONIUM 10 MG/ML 5 ML SYRINGE IV ONE (10:26)
[2018-03-30] MEDS ORDERED: SEVOFLURANE (ULTANE) 15 ML INHAL SOLN ONE ×6 (10:26→11:20)
[2018-03-30] MEDS ORDERED: proPOfol 200 MG/20 ML (DIPRIVAN) VIAL IV ONE (10:26)
[2018-03-30] MEDS ORDERED: MIDAZOLAM 2 MG/2 ML (VERSED) VIAL ONE (10:26)
[2018-03-30] MEDS ORDERED: DEXAMETHASONE 10 MG/ML (DECADRON) 1 ML VIAL ONE (10:26)
[2018-03-30] MEDS ORDERED: fentaNYL INJECTION 100 MCG/2 ML AMP ONE (10:26)
[2018-03-30] MEDS ORDERED: ONDANSETRON 4 MG/2 ML (SDV) Z0FRAN ONE (10:26)
--- OUTSIDE RECORDS SUMMARY | 2018-03-30 10:26 | XMS REPORT | CCD ---
Author Author [facility] Organization [facility] Address [address] [place] [address] Phone Care Team Providers Care Research Investigator Name Role Phone PP Unavailable CCM Unavailable Summary Purpose Interface Exchange Insurance Providers Payer name Policy type / Coverage type Covered libertarian ID Effective Begin Date Effective End Date WPS Medicare Part B Medicare Part B [id number] Unknown AARP Medicare Part B [id number] Unknown Family history Mother Diagnosis Age At [...] Unknown 3 08/14/[address]: 471556015 Never smoker 08/14/[address]: 296722348 Never drinks alcohol 08/14/2014 Allergies, Adverse Reactions, Alerts Substance Reaction Codes Entered Date Inactivated Date Status * OTHER REACTION - SEE ANSWER BOX Invokana, Victoza Unknown 07/2017 No Inactive Date Active Paxil has blurred vision RxNorm: 177472 08/14/2014 No Inactive Date Active Lipitor RxNorm: 11740 08/14/2014 No Inactive Date Active Past Medical History Illness Codes Condition Status Onset Date Resolved Date Essential (primary) hypertension ICD-9: 401.9 ICD-10: I10 Active 08/13/2014 Unknown Right upper quadrant pain ICD-9: 789.01 ICD-10: R10.11 Active 03/28/2018 Unknown Dysuria ICD-9: 788.1 ICD-10: R30.0 Active 04/15/2017 Unknown Low back pain ICD-9: 724.2 ICD-10: M54.5 Active 08/13/2015 Unknown Type 2 diabetes mellitus with hyperglycemia ICD-9: 250.00 ICD-10: E11.65 Active 12/03/2014 Unknown Essential (primary) hypertension ICD-9: 401.1 ICD-10: I10 Active 04/15/2017 Unknown Generalized anxiety disorder ICD-9: 300.00 ICD-10: F41.1 Active 01/07/2017 Unknown Major depressive disorder, recurrent, mild ICD-9: 296.31 ICD-10: F33.0 Active 09/14/2016 Unknown Carpal tunnel syndrome, left upper limb ICD-9: 354.0 ICD-10: G56.02 Active 11/25/2017 Unknown Encounter for immunization ICD-9: V04.81 ICD-10: Z23 Active 12/03/2014 Unknown 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 ICD-9: 250.60 ICD-10: E11.43 Active 03/19/2016 Unknown Type 2 diabetes mellitus with hyperglycemia ICD-9: 250.02 ICD-10: E11.65 Active 10/11/2017 Unknown Paroxysmal atrial fibrillation ICD-9: 427.31 ICD-10: I48.0 Active 06/03/2017 Unknown Paroxysmal tachycardia, unspecified ICD-9: 427.2 ICD-10: I47.9 Active 05/12/2017 Unknown Cough ICD-9: 786.2 ICD-10: R05 Active 04/15/2017 Unknown Hypothyroidism, unspecified ICD-9: 244.9 ICD-10: E03.9 [...] Problems Condition Codes Effective Dates Condition Status Essential (primary) hypertension ICD-9: 401.9 ICD-10: I10 08/13/2014 Active Right upper quadrant pain ICD-9: 789.01 ICD-10: R10.11 03/28/2018 Active Dysuria ICD-9: 788.1 ICD-10: R30.0 04/15/2017 Active Low back pain ICD-9: 724.2 ICD-10: M54.5 08/13/2015 Active Type 2 diabetes mellitus with hyperglycemia ICD-9: 250.00 ICD-10: E11.65 12/03/2014 Active Essential (primary) hypertension ICD-9: 401.1 ICD-10: I10 04/15/2017 Active Generalized anxiety disorder ICD-9: 300.00 ICD-10: F41.1 01/07/2017 Active Major depressive disorder, recurrent, mild ICD-9: 296.31 ICD-10: F33.0 09/14/2016 Active Carpal tunnel syndrome, left upper limb ICD-9: 354.0 ICD-10: G56.02 11/25/2017 Active Encounter for immunization ICD-9: V04.81 ICD-10: Z23 12/03/2014 Active 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 ICD-9: 250.60 ICD-10: E11.43 03/19/2016 Active Type 2 diabetes mellitus with hyperglycemia ICD-9: 250.02 ICD-10: E11.65 10/11/2017 Active Paroxysmal atrial fibrillation ICD-9: 427.31 ICD-10: I48.0 06/03/2017 Active Paroxysmal tachycardia, unspecified ICD-9: 427.2 ICD-10: I47.9 05/12/2017 Active Cough ICD-9: 786.2 ICD-10: R05 04/15/2017 Active Hypothyroidism, unspecified ICD-9: 244.9 ICD-10: E03.9 [...] Start Date Stop Date Status Fill Instructions Zetia 10 mg tablet RxNorm: 546297 1 Tablet(s) PO daily 201803/22/2019 Active tramadol 50 mg tablet RxNorm: 299457 1 Tablet(s) PO TID as needed 03/25/2018 No Stop Date Active fluticasone 50 mcg/actuation nasal spray,suspension RxNorm: 6331309 INSTILL ONE SPRAY IN EACH NOSTRILTWICE A DAY 03/16/2018 10/11/2018 Active Generic For:FLONASE SPR 0.05% 03/16/2018 8:50:59 AM Keflex 500 mg capsule RxNorm: 790902 1 Capsule(s) PO TID 201702/10/2018 Inactive Keflex 500 mg capsule RxNorm: 372496 1 Capsule(s) PO TID 201702/20/2018 Inactive metoprolol succinate ER 200 mg tablet,extended release 24 hr RxNorm: 197711 1 Tablet(s) PO daily 01/27/2018 No Stop Date Active Eliquis 2.5 mg tablet RxNorm: 1161307 1 Tablet(s) PO BID 2017 No Stop Date Active digoxin 125 mcg tablet RxNorm: 537948 1 Tablet(s) PO daily No Stop Date Active Basaglar KwikPen U-100 Insulin 100 unit/mL (3 mL) subcutaneous RxNorm: 7361697 20 Unit(s) SQ daily 11/25/201705/23 Active UPDATE RX metformin 500 mg tablet RxNorm: 473256 1 Tablet(s) PO UD 1.5 in morning, noon and 1 at bedtime 10/28/2017 10/22/2018 Active Basaglar KwikPen U-100 Insulin 100 unit/mL (3 mL) subcutaneous RxNorm: 8801612 18 Unit(s) SQ daily 10/26/201711/24 Inactive UPDATE RX levothyroxine 50 mcg tablet RxNorm: 624632 TAKE 1 TABLET BY MOUTH ONCE DAILY 10/15/2017 06/11/2018 Active Generic For:SYNTHROID 50MCG TAB 10/15/2017 9:59:00 AM escitalopram 10 mg tablet RxNorm: 009376 1 Tablet(s) PO QPM 01/201809/16/2018 Active Generic For:LEXAPRO 5MG 01/07/2017 9:05:43 AM Basaglar KwikPen U-100 Insulin 100 unit/mL (3 mL) subcutaneous RxNorm: 3215038 15 Unit(s) SQ daily 09/22/201710/25 Inactive potassium chloride ER 20 mEq tablet,extended release RxNorm: 461862 1 Tablet(s) PO daily 06/22/2017 01/17/2018 Inactive Lantus Solostar U-100 Insulin 100 unit/mL (3 mL) subcutaneous pen RxNorm: 750280 10 Unit(s) SQ daily 06/08/2017 Inactive Basaglar KwikPen U-100 Insulin 100 unit/mL (3 mL) subcutaneous RxNorm: 2986478 10 Unit(s) SQ daily 06/08/201706/07 Inactive Basaglar KwikPen U-100 Insulin 100 unit/mL (3 mL) subcutaneous RxNorm: 4276877 10 Unit(s) SQ daily 06/08/201709/21 Inactive Lexapro 5 mg tablet RxNorm: 405609 1 Tablet(s) PO daily 201711/27/2017 Inactive Lexapro 5 mg tablet RxNorm: 961663 1 Tablet(s) PO daily 201705/31/2017 Inactive bisoprolol 5 mg-hydrochlorothiazide 6.25 mg tablet RxNorm: 512578 1 Tablet(s) PO BID 05/04/2017 06/02/2017 Inactive Keflex 500 mg capsule RxNorm: 568280 1 Capsule(s) PO QID 201704/21/2017 Inactive Lantus Solostar 100 unit/mL (3 mL) subcutaneous insulin pen RxNorm: 600845 10 Unit(s) SQ daily 02/03/2017 06/07/2017 Inactive levothyroxine 50 mcg tablet RxNorm: 527724 TAKE 1 TABLET BY MOUTH ONCE DAILY 02/01/2017 09/28/2017 Inactive Generic For:SYNTHROID 50MCG TAB 02/01/2017 9:20:59 AM gabapentin 600 mg tablet RxNorm: 707186 1 Capsule(s) PO TID 01/21/2018 Inactive Lexapro 5 mg tablet RxNorm: 572553 TAKE 1 TABLET BY MOUTH AT BEDTIME 01/07/2017 09/21/2017 Inactive Generic For:LEXAPRO 5MG 01/07/2017 9:05:43 AM Victoza 2-Dariusz 0.6 mg/0.1 mL (18 mg/3 mL) subcutaneous pen injector RxNorm: 578355 1.8 Milligram(s) SQ daily 12/17/201602/07 Inactive Victoza 3-Dariusz 0.6 mg/0.1 mL (18 mg/3 mL) subcutaneous pen injector RxNorm: 093773 Milligram(s) SQ 12/17/2016 02/07/2017 Inactive Zetia 10 mg tablet RxNorm: 061458 1 Tablet(s) PO daily 201611/11/2017 Inactive fluticasone 50 mcg/actuation nasal spray,suspension RxNorm: 4424478 Pike NASAL ONE SPRAY IN EACH NOSTRIL TWICE DAILY 09/28/2016 04/25/2017 Inactive Victoza 2-Dariusz 0.6 mg/0.1 mL (18 mg/3 mL) subcutaneous pen injector RxNorm: 681528 1.2 Milligram(s) SQ daily 09/14/201612/16 Inactive Lexapro 5 mg tablet RxNorm: 068411 1 Tablet(s) PO QHS 201612/12/2016 Inactive metformin 500 mg tablet RxNorm: 261300 1 Tablet(s) PO UD 1.5 in morning, noon and 1 at bedtime 09/08/2016 09/02/2017 Inactive glimepiride 4 mg tablet RxNorm: 259520 TAKE 1 TABLET BY MOUTH ONCE DAILY 07/31/2016 09/13/2016 Inactive Generic For:*AMARYL 4MG 07/31/2016 9:02:38 AM Victoza 2-Dariusz 0.6 mg/0.1 mL (18 mg/3 mL) subcutaneous pen injector RxNorm: 421619 1.2 Milligram(s) SQ daily 05/18/201609/13 Inactive Victoza 2-Dariusz 0.6 mg/0.1 mL (18 mg/3 mL) subcutaneous pen injector RxNorm: 212661 1.2 Milligram(s) SQ daily 04/16/201605/17 Inactive levothyroxine 50 mcg tablet RxNorm: 875628 TAKE 1 TABLET BY MOUTH ONCE DAILY 04/08/2016 12/03/2016 Inactive Generic For:SYNTHROID 50MCG TAB 04/08/2016 9:05:40 AM levothyroxine 50 mcg tablet RxNorm: 356020 1 Tablet(s) PO daily TAKE 1 TABLET BY MOUTH ONCE DAILY 04/08/2016 12/03/2016 Inactive Generic For:SYNTHROID 50MCG TAB N O T I C E PRESCRIPTION PREVIOUSLY AUTHORIZED BY DOCTOR:HENRY BAIG bisoprolol 5 mg-hydrochlorothiazide 6.25 mg tablet RxNorm: 569954 1 Tablet(s) PO BID 03/23/2016 03/17/2017 Inactive Victoza 2-Dariusz 0.6 mg/0.1 mL (18 mg/3 mL) subcutaneous pen injector RxNorm: 690080 0.6 Milligram(s) SQ daily 03/19/201604/15 Inactive Lexapro 5 mg tablet RxNorm: 826069 1 Tablet(s) PO QHS 201606/16/2016 Inactive gabapentin 600 mg tablet RxNorm: 529091 1 Capsule(s) PO TID 07/201601/26/2017 Inactive glimepiride 4 mg tablet RxNorm: 567409 1 Tablet(s) PO daily 06/05/2016 Inactive Victoza 3-Dariusz 0.6 mg/0.1 mL (18 mg/3 mL) subcutaneous pen injector RxNorm: 375960 0.6 Milligram(s) SQ daily x2 weeks, then 1.2 mg SQ daily 03/18/2016 Inactive metformin 500 mg tablet RxNorm: 745086 1 Tablet(s) PO UD 1.5 in morning, noon and 1 at bedtime 08/14/2015 08/07/2016 Inactive gabapentin 600 mg tablet RxNorm: 122021 1 Capsule(s) PO TID SHE IS ONLY TAKING 1 QD 08/14/2015 03/18/2016 Inactive fluticasone 50 mcg/actuation nasal spray,suspension RxNorm: 635596 Pike NASAL ONE SPRAY IN EACH NOSTRIL TWICE DAILY 07/26/2015 07/25/2015 Inactive fluticasone 50 mcg/actuation nasal spray,suspension RxNorm: 4877543 Pike NASAL ONE SPRAY IN EACH NOSTRIL TWICE DAILY 07/26/2015 02/20/2016 Inactive bisoprolol 5 mg-hydrochlorothiazide 6.25 mg tablet RxNorm: 435458 1 Tablet(s) PO daily 1 Tablet(s) PO BID 07/17/20152015 Inactive metformin 500 mg tablet RxNorm: 485663 1 Tablet(s) PO TID 1 Tablet(s) PO TID 07/17/2015 08/13/2015 Inactive Diflucan 100 mg tablet RxNorm: 762314 1 Tablet(s) PO daily 06/201507/21/2015 Inactive Zetia 10 mg tablet RxNorm: 253020 1 Tablet(s) PO daily 201506/03/2016 Inactive bisoprolol 5 mg-hydrochlorothiazide 6.25 mg tablet RxNorm: 087337 1 Tablet(s) PO BID 04/18/2015 07/16/2015 Inactive metformin 500 mg tablet RxNorm: 349671 1 Tablet(s) PO TID 03/0106/28/2015 Inactive glimepiride 4 mg tablet RxNorm: 017884 1 Tablet(s) PO daily 01/30/2015 Inactive levothyroxine 50 mcg tablet RxNorm: 065251 TAKE 1 TABLET BY MOUTH ONCE DAILY 01/31/2015 09/27/2015 Inactive Generic For:SYNTHROID 50MCG TAB N O T I C E PRESCRIPTION PREVIOUSLY AUTHORIZED BY DOCTOR:HENRY BAIG glimepiride 4 mg tablet RxNorm: 610100 1 Tablet(s) PO daily 07/29/2015 Inactive Invokana 100 mg tablet RxNorm: 5075398 1 Tablet(s) PO daily 07/16/2015 Inactive bisoprolol 5 mg-hydrochlorothiazide 6.25 mg tablet RxNorm: 796932 1 Tablet(s) PO BID 08/27/2014 02/22/2015 Inactive metformin 500 mg tablet RxNorm: 664611 1 Tablet(s) PO TID 08/1012/07/2014 Inactive metformin 500 mg tablet RxNorm: 812052 1 Tablet(s) PO TID 08/1008/09/2014 Inactive Fish Oil 1,000 mg capsule RxNorm: 1 Capsule(s) PO daily No Start Date Active Protonix 40 mg tablet,delayed release RxNorm: 938558 1 Tablet(s) PO QAM No Start Date Active furosemide 40 mg tablet RxNorm: 527076 1 Tablet(s) PO daily No Start Date Active pen needle, diabetic 31 gauge x 1/6" RxNorm: Miscellaneous No Start Date Active nitroglycerin 0.4 mg sublingual tablet RxNorm: 404881 1 Tablet(s) SL as needed chest pain No Start Date Active amlodipine 5 mg tablet RxNorm: 481481 1 Tablet(s) PO daily No Start Date Active Entresto 24 mg-26 mg tablet RxNorm: 3675091 1 Tablet(s) PO BID No Start Date Active aspirin 81 mg chewable tablet RxNorm: 727647 1 Tablet(s) PO daily No Start Date 06/02/2017 Inactive Eliquis 5 mg tablet RxNorm: 5906190 1 Tablet(s) PO BID No Start Date 01/26/2018 Inactive bisoprolol-hydrochlorothiazide oral RxNorm: 68175 oral No Start Date 08/26/2014 Inactive levothyroxine 50 mcg tablet RxNorm: 786727 1 Tablet(s) PO daily No Start Date 01/30/2015 Inactive potassium chloride ER 20 mEq tablet,extended release RxNorm: 690149 1 Tablet(s) PO daily No Start Date 06/21/2017 Inactive digoxin 250 mcg tablet RxNorm: 724264 1 Tablet(s) PO daily No Start Date 01/26/2018 Inactive Invokana 100 mg tablet RxNorm: 1866305 1 Tablet(s) PO daily No Start Date 12/11/2014 Inactive tramadol 50 mg tablet RxNorm: 490546 1 Tablet(s) PO TID as needed No Start Date 03/22/2018 Inactive Victoza 3-Dariusz 0.6 mg/0.1 mL (18 mg/3 mL) subcutaneous pen injector RxNorm: 600025 0.6 Milligram(s) SQ daily x2 weeks, then 1.2 mg SQ daily No Start Date 12/01/2015 Inactive Effient 10 mg tablet RxNorm: 733372 1 Tablet(s) PO QAM No Start Date 01/26/2018 Inactive Zetia 10 mg tablet RxNorm: 595802 1 Tablet(s) PO BID No Start Date 03/18/2016 Inactive metoprolol succinate ER 100 mg tablet,extended release 24 hr RxNorm: 899551 1 Tablet(s) PO daily No Start Date 2017 Inactive gabapentin 300 mg capsule RxNorm: 258645 1 Capsule(s) PO BID No Start Date 08/13/2015 Inactive Lasix 40 mg tablet RxNorm: 365338 1 Tablet(s) PO BID No Start Date 04/14/2017 Inactive Coreg 3.125 mg tablet RxNorm: 197249 1 Tablet(s) PO BID with meals No Start Date 06/02/2017 Inactive Medication Administered No Medication Administered data Immunizations Vaccine Codes Date Status Influenza CVX: 141 11/25/2017 completed Influenza CVX: 141 12/17/2016 completed Influenza CVX: 141 11/14/2015 completed Influenza CVX: 141 12/04/2014 completed Assessments Condition Codes Effective Dates Essential (primary) hypertension ICD-10: I10 ICD-9: 401.9 03/28/2018 Right upper quadrant pain ICD-10: R10.11 ICD-9: 789.01 03/28/2018 Type 2 diabetes mellitus with hyperglycemia ICD-10: E11.65 ICD-9: 250.00 02/24/2018 Dysuria ICD-10: R30.0 ICD-9: 788.1 02/24/2018 Low back pain ICD-10: M54.5 ICD-9: 724.2 02/24/2018 Essential (primary) hypertension ICD-10: I10 ICD-9: 401.1 01/27/2018 Generalized anxiety disorder ICD-10: F41.1 ICD-9: 300.00 01/27/2018 Major depressive disorder, recurrent, 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 ICD-9: 296.31 01/27/2018 Carpal tunnel syndrome, left upper limb ICD-10: G56.02 ICD-9: 354.0 11/25/2017 Encounter for immunization ICD-10: Z23 ICD-9: V04.81 11/25/2017 Type 2 diabetes mellitus with hyperglycemia ICD-10: E11.65 ICD-9: 250.02 10/11/2017 Type 2 diabetes mellitus with diabetic autonomic (poly)neuropathy ICD-10: E11.43 ICD-9: 250.60 09/22/2017 Paroxysmal atrial fibrillation ICD-10: I48.0 ICD-9: 427.31 07/06/2017 Paroxysmal tachycardia, unspecified ICD-10: I47.9 ICD-9: 427.2 05/12/2017 Major depressive disorder, recurrent, moderate ICD-10: F33.1 ICD-9: 296.32 05/12/2017 Cough ICD-10: R05 ICD-9: 786.2 04/15/2017 Hypothyroidism, unspecified ICD-10: E03.9 ICD-9: 244.9 07/17/2015 Headache ICD-10: R51 ICD-9: 784.0 03/25/2015 ESSENTIAL HYPERTENSION ICD-9: 401.9 12/04 Aortic stenosis ICD-9: 424.1 12/04/2014 DIABETES TYPE II ICD-9: 250.00 2014 VACCIN FOR INFLUENZA ICD-9: V04.81 2014 Diabetes mellitus out of control ICD-9: 250.02 08/14/2014 Reason For Visit Reason For Visit Effective Dates Notes abdominal pain 03/28/2018 diabetes mellitus 02/24/2018 diabetes mellitus 01/27/2018 diabetes mellitus 11/25/2017 diabetes mellitus 10/26/2017 diabetes mellitus 10/11/2017 diabetes mellitus 09/22/2017 Hospital Follow Up 07/06/2017 Hospital Follow Up 06/03/2017 arrhythmia 05/12/2017 Hospital Follow Up 04/15/2017 stress test and then shipped to [facility] Follow Up 03/19/2017 stress test and then shipped to [facility] diabetes mellitus 02/03/2017 headache 01/07/2017 diabetes mellitus 12/17/2016 diabetes mellitus 09/14/2016 diabetes mellitus 06/18/2016 medication follow up 04/16/2016 back pain 03/19/2016 back pain 11/14/2015 back pain 08/14/2015 diabetes mellitus 07/17/2015 Hospital Follow Up 03/25/2015 diabetes mellitus 12/04/2014 diabetes mellitus 08/14/2014 Results Observation Observation Code Item Item Code Result Date Culture Urine [id number] URINE CULTURE SEE NOTES 02/28/2018 Urine Culture Ucult Complete Growth of aerobe sent to ref lab 02/25/2018 Cbc With Differential Ord2 WBC 6.37 K/ul 02/24/2018 Cbc With Differential Ord2 RBC 3.71 M/ul 02/24/2018 Cbc With Differential Ord2 HGB 10.7 g/dl 02/24/2018 Cbc With Differential Ord2 HCT 33.1 % 02/24/2018 Cbc With Differential Ord2 Neut% 68.1 % 02/24/2018 Cbc With Differential Ord2 MCV 89.2 fl 02/24/2018 Cbc With Differential Ord2 Lymph% 24.6 % 02/24/2018 Cbc With Differential Ord2 MCH 28.8 pg 02/24/2018 Cbc With Differential Ord2 [place]% 5.7 % 02/24/2018 Cbc With Differential Ord2 MCHC 32.3 pg 02/24/2018 Cbc With Differential Ord2 Eos% 1.1 % 02/24/2018 Cbc With Differential Ord2 PLT 411 K/ul 02/24/2018 Cbc With Differential Ord2 Baso% 0.5 % 02/24/2018 Cbc With Differential Ord2 RDW 14.3 % 02/24/2018 Cbc With Differential Ord2 Neut ABS# 4.34 K/ul 02/24/2018 Cbc With Differential Ord2 Lymph ABS# 1.57 K/ul 02/24/2018 Cbc With Differential Ord2 [place] ABS# 0.4 K/ul 02/24/2018 Cbc With Differential Ord2 Eos ABS# 0.1 K/ul 02/24/2018 Cbc With Differential Ord2 Baso ABS# 0.0 K/ul 02/24/2018 Comp Metabolic Cpa606 NA 138 mEq/L 02/24/2018 Comp Metabolic Adv765 K 4.4 mEq/L 02/24/2018 Comp Metabolic Jio696 CL 100 mEq/L 02/24/2018 Comp Metabolic Jce782 CO2 27.0 mEq/L 02/24/2018 Comp Metabolic Ihk583 ANION GAP 15 02/24/2018 Comp Metabolic Lcu705 GLUCOSE 98 mg/dL 02/24/2018 Comp Metabolic Lcs447 Creat 1.0 mg/dL 02/24/2018 Comp Metabolic Vvl415 eGFR 55 ml/min/1.73m2 02/24/2018 Comp Metabolic Vmt823 BUN 25 mg/dL 02/24/2018 Comp Metabolic Tth611 B/C Ratio 24.3 Ratio 02/24/2018 Comp Metabolic Xze943 CALCIUM 9.4 mg/dL 02/24/2018 Comp Metabolic Ynr591 ALK PHOS 46 U/L 02/24/2018 Comp Metabolic Cxx584 AST(SGOT) 13 U/L 02/24/2018 Comp Metabolic Dis444 ALT(SGPT) 12 U/L 02/24/2018 Comp Metabolic Qqu745 BILI T 0.4 mg/dL 02/24/2018 Comp Metabolic Gbx624 ALBUMIN 4.5 g/dL 02/24/2018 Comp Metabolic Ikk968 TPRO 6.6 g/dL 02/24/2018 Comp Metabolic Buw100 GLOB 2.1 g/dL 02/24/2018 Comp Metabolic Dwt697 A/G Ratio 2.1 Ratio 02/24/2018 Comp Metabolic Sio794 Osmo 280 mOsmo 02/24/2018 Culture Urine [id number] URINE CULTURE SEE NOTES 02/11/2018 Culture Urine [id number] Continued Results 02/11/2018 Urine Culture Ucult Complete >100,000 col/ml aerobic growth sent to ref lab 02/08/2018 %Hba1C Wtv384 % HbA1c 78781-2 6.8 % 01/12/2018 %Hba1C Aui338 Gluc Ave 148 mg/dL 01/12/2018 Metabolic Ord15 NA 143 mEq/L 01/11/2018 Metabolic Ord15 K 4.2 mEq/L 01/11/2018 Metabolic Ord15 CL 105 mEq/L 01/11/2018 Metabolic Ord15 CO2 28.0 mEq/L 01/11/2018 Metabolic Ord15 GLUCOSE 151 mg/dL 01/11/2018 Metabolic Ord15 BUN 23 mg/dL 01/11/2018 Metabolic Ord15 Creat 1.2 mg/dL 01/11/2018 Metabolic Ord15 B/C Ratio 19.2 Ratio 01/11/2018 Metabolic Ord15 eGFR 46 ml/min/1.73m2 01/11/2018 Metabolic Ord15 Osmo 292 mOsmo 01/11/2018 Metabolic Ord15 ANION GAP 14 01/11/2018 Metabolic Ord15 CALCIUM 9.3 mg/dL 01/11/2018 Digoxin Ord9 DIGOXIN 0.9 NG/ML 01/11/2018 Cbc With Differential Ord2 WBC 5.37 K/ul 01/11/2018 Cbc With Differential Ord2 RBC 3.98 M/ul 01/11/2018 Cbc With Differential Ord2 HGB 11.4 g/dl 01/11/2018 Cbc With Differential Ord2 HCT 35.8 % 01/11/2018 Cbc With Differential Ord2 Neut% 57.6 % 01/11/2018 Cbc With Differential Ord2 Lymph% 31.7 % 01/11/2018 Cbc With Differential Ord2 MCV 89.9 fl 01/11/2018 Cbc With Differential Ord2 [place]% 7.8 % 01/11/2018 Cbc With Differential Ord2 MCH 28.6 pg 01/11/2018 Cbc With Differential Ord2 MCHC 31.8 pg 01/11/2018 Cbc With Differential Ord2 Eos% 2.2 % 01/11/2018 Cbc With Differential Ord2 PLT 304 K/ul 01/11/2018 Cbc With Differential Ord2 Baso% 0.7 % 01/11/2018 Cbc With Differential Ord2 Neut ABS# 3.09 K/ul 01/11/2018 Cbc With Differential Ord2 RDW 15.4 % 01/11/2018 Cbc With Differential Ord2 Lymph ABS# 1.70 K/ul 01/11/2018 Cbc With Differential Ord2 [place] ABS# 0.4 K/ul 01/11/2018 Cbc With Differential Ord2 Eos ABS# 0.1 K/ul 01/11/2018 Cbc With Differential Ord2 Baso ABS# 0.0 K/ul 01/11/2018 Magnesium Ord90 Mag 1.7 mg/dL 01/11/2018 Test(s) Not Perfromed [id number] Test(s) Not Performed Test(s) Not Performed. See Below: 09/20/2017 Test(s) Not Perfromed [id number] TEST NAME BNP 09/20/2017 Test(s) Not Perfromed [id number] Rejection Reason Patient Refused due to lack of coving diganosis 09/20/2017 Test(s) Not Perfromed [id number] COMMENT Dorita Notified 09/20 Test(s) Not Perfromed [id number] Telephoto Engineer Miguel Mclaughlin 2017 B Type Natriuretic Peptide Ekq2198 B-SERVICE OBSERVER CHIEF 889.00 pg/ml 2017 Cbc With Differential Ord2 WBC 5.72 K/ul 09/20/2017 Cbc With Differential Ord2 RBC 3.88 M/ul 09/20/2017 Cbc With Differential Ord2 HGB 11.2 g/dl 09/20/2017 Cbc With Differential Ord2 Neut% 62.4 % 09/20/2017 Cbc With Differential Ord2 HCT 35.0 % 09/20/2017 Cbc With Differential Ord2 Lymph% 29.4 % 09/20/2017 Cbc With Differential Ord2 MCV 90.2 fl 09/20/2017 Cbc With Differential Ord2 [place]% 5.6 % 09/20/2017 Cbc With Differential Ord2 MCH 28.9 pg 09/20/2017 Cbc With Differential Ord2 Eos% 2.1 % 09/20/2017 Cbc With Differential Ord2 MCHC 32.0 pg 09/20/2017 Cbc With Differential Ord2 PLT 350 K/ul 09/20/2017 Cbc With Differential Ord2 Baso% 0.5 % 09/20/2017 Cbc With Differential Ord2 RDW 14.4 % 09/20/2017 Cbc With Differential Ord2 Neut ABS# 3.57 K/ul 09/20/2017 Cbc With Differential Ord2 Lymph ABS# 1.68 K/ul 09/20/2017 Cbc With Differential Ord2 [place] ABS# 0.3 K/ul 09/20/2017 Cbc With Differential Ord2 Eos ABS# 0.1 K/ul 09/20/2017 Cbc With Differential Ord2 Baso ABS# 0.0 K/ul 09/20/2017 %Hba1C Ral990 % HbA1c 65699-3 7.9 % 09/20/2017 %Hba1C Hfw589 Gluc Ave 180 mg/dL 09/20/2017 Magnesium Ord90 [...] 88.5 fl 07/07/2017 Cbc With Differential Ord2 MCH 28.3 pg 07/07/2017 Cbc With Differential Ord2 [place]% 7.9 % 07/07/2017 Cbc With Differential Ord2 Eos% 2.2 % 07/07/2017 Cbc With Differential Ord2 MCHC 31.9 pg 07/07/2017 Cbc With Differential Ord2 PLT 278 K/ul 07/07/2017 Cbc With Differential Ord2 Baso% 0.7 % 07/07/2017 Cbc With Differential Ord2 Neut ABS# 2.70 K/ul 07/07/2017 Cbc With Differential Ord2 RDW 15.7 % 07/07/2017 Cbc With Differential Ord2 Lymph ABS# 1.34 K/ul 07/07/2017 Cbc With Differential Ord2 [place] ABS# 0.4 K/ul 07/07/2017 Cbc With Differential Ord2 Eos ABS# 0.1 K/ul 07/07/2017 Cbc With Differential Ord2 Baso ABS# 0.0 K/ul 07/07/2017 Comp Metabolic Evo136 NA 142 mEq/L 07/07/2017 Comp Metabolic Ywj103 K 4.3 mEq/L 07/07/2017 Comp Metabolic Twq896 CL 105 mEq/L 07/07/2017 Comp Metabolic Oim175 CO2 28.0 mEq/L 07/07/2017 Comp Metabolic Itk787 ANION GAP 13 07/07/2017 Comp Metabolic Amy958 GLUCOSE 197 mg/dL 07/07/2017 Comp Metabolic Vuk939 Creat 1.1 mg/dL 07/07/2017 Comp Metabolic Kru704 eGFR 51 ml/min/1.73m2 07/07/2017 Comp Metabolic Jdh194 BUN 21 mg/dL 07/07/2017 Comp Metabolic Pkz274 B/C Ratio 18.9 Ratio 07/07/2017 Comp Metabolic Tmk624 CALCIUM 8.9 mg/dL 07/07/2017 Comp Metabolic Zkz361 ALK PHOS 51 U/L 07/07/2017 Comp Metabolic Lwc157 AST(SGOT) 11 U/L 07/07/2017 Comp Metabolic Naj948 ALT(SGPT) 11 U/L 07/07/2017 Comp Metabolic Iqo394 BILI T 0.3 mg/dL 07/07/2017 Comp Metabolic Ljz087 ALBUMIN 4.2 g/dL 07/07/2017 Comp Metabolic Ozm748 TPRO 6.0 g/dL 07/07/2017 Comp Metabolic Snq709 GLOB 1.8 g/dL 07/07/2017 Comp Metabolic Kaz222 A/G Ratio 2.3 Ratio 07/07/2017 Comp Metabolic Prf432 Osmo 292 mOsmo 07/07/2017 Digoxin Ord9 DIGOXIN 1.3 NG/ML 07/07/2017 Tsh Ord6 TSH (3rd IS) 2.19 uIU/mL 07/07/2017 B Type Natriuretic Peptide Qho6075 B-SERVICE OBSERVER CHIEF 801.00 pg/ml 2017 Culture Urine [id number] URINE CULTURE SEE NOTES 04/19/2017 Culture Urine [id number] Continued Results 04/19/2017 Urine Culture Ucult Complete >100,000 col/ml aerobic growth sent to ref lab 04/16/2017 Comp Metabolic Mou347 NA 140 mEq/L 01/26/2017 Comp Metabolic Vpe841 K 4.6 mEq/L 01/26/2017 Comp Metabolic Poi927 CL 102 mEq/L 01/26/2017 Comp Metabolic Qbs256 CO2 28.0 mEq/L 01/26/2017 Comp Metabolic Uqn813 ANION GAP 15 01/26/2017 Comp Metabolic Mnz321 GLUCOSE 173 mg/dL 01/26/2017 Comp Metabolic Apg187 Creat 1.0 mg/dL 01/26/2017 Comp Metabolic Jkn132 eGFR 56 ml/min/1.73m2 01/26/2017 Comp Metabolic Fct916 BUN 23 mg/dL 01/26/2017 Comp Metabolic Gju892 B/C Ratio 22.5 Ratio 01/26/2017 Comp Metabolic Dwq921 CALCIUM 9.4 mg/dL 01/26/2017 Comp Metabolic Jrx847 ALK PHOS 52 U/L 01/26/2017 Comp Metabolic Wpb836 AST(SGOT) 12 U/L 01/26/2017 Comp Metabolic Ltw010 ALT(SGPT) 12 U/L 01/26/2017 Comp Metabolic Kmj049 BILI T 0.5 mg/dL 01/26/2017 Comp Metabolic Zqk561 ALBUMIN 4.4 g/dL 01/26/2017 Comp Metabolic Wip007 TPRO 6.5 g/dL 01/26/2017 Comp Metabolic Mrw125 GLOB 2.1 g/dL 01/26/2017 Comp Metabolic Ptd755 A/G Ratio 2.1 Ratio 01/26/2017 Comp Metabolic Aaw893 Osmo 287 mOsmo 01/26/2017 Cbc With Differential [...] 29.2 pg 01/26/2017 Cbc With Differential Ord2 [place]% 4.9 % 01/26/2017 Cbc With Differential Ord2 [...] 1.75 K/ul 01/26/2017 Cbc With Differential Ord2 [place] ABS# 0.4 K/ul 01/26/2017 Cbc With Differential Ord2 Eos ABS# 0.1 K/ul 01/26/2017 Cbc With Differential Ord2 Baso ABS# 0.0 K/ul 01/26/2017 %Hba1C Dim543 % HbA1c 62951-0 7.8 % 01/26/2017 %Hba1C Pph593 Gluc Ave 177 mg/dL 01/26/2017 Lipid Ord30 CHOL 239 mg/dL 01/26/2017 Lipid Ord30 HDL 40.0 mg/dl 01/26/2017 Lipid Ord30 TRIG 325 mg/dL 01/26/2017 Lipid Ord30 LDL 134 mg/dL 01/26/2017 Lipid Ord30 C/HDL 6.0 Ratio 01/26/2017 Free T4 Zcy852 FREE T4 0.95 ng/dL 01/26/2017 Tsh Ord6 [...] Metabolic Ord15 CALCIUM 9.0 mg/dL 09/08/2016 %Hba1C Zix128 % HbA1c 80062-2 7.5 % 09/08/2016 %Hba1C Cau498 Gluc Ave 169 mg/dL 09/08/2016 Tsh Ord6 hTSH II 2.64 uIU/mL 03/13/2016 %Hba1C Hgn151 % HbA1c 17646-5 8.2 % 03/13/2016 %Hba1C Ljg431 Gluc Ave 189 mg/dL 03/13/2016 Lipid Ord30 CHOL 233 mg/dL 03/13/2016 Lipid Ord30 HDL 46.0 mg/dl 03/13/2016 Lipid Ord30 TRIG 276 mg/dL 03/13/2016 Lipid Ord30 LDL 132 mg/dL 03/13/2016 Lipid Ord30 C/HDL 5.1 Ratio 03/13/2016 Free T4 Lmk573 FREE T4 0.94 ng/dL 03/13/2016 Cbc With Differential Ord2 WBC 5.53 K/ul 03/13/2016 Cbc With Differential Ord2 RBC 4.19 M/ul 03/13/2016 Cbc With Differential Ord2 HGB 12.7 g/dl 03/13/2016 Cbc With Differential Ord2 Neut% 62.1 % 03/13/2016 Cbc With Differential Ord2 HCT 38.3 % 03/13/2016 Cbc With Differential Ord2 MCV 91.4 fl 03/13/2016 Cbc With Differential Ord2 Lymph% 29.5 % 03/13/2016 Cbc With Differential Ord2 [place]% 6.1 % 03/13/2016 Cbc With Differential Ord2 MCH 30.3 pg 03/13/2016 Cbc With Differential Ord2 MCHC 33.2 pg 03/13/2016 Cbc With Differential Ord2 Eos% 1.8 % 03/13/2016 Cbc With Differential Ord2 PLT 304 K/ul 03/13/2016 Cbc With Differential Ord2 Baso% 0.5 % 03/13/2016 Cbc With Differential Ord2 RDW 14.4 % 03/13/2016 Cbc With Differential Ord2 Neut ABS# 3.43 K/ul 03/13/2016 Cbc With Differential Ord2 Lymph ABS# 1.63 K/ul 03/13/2016 Cbc With Differential Ord2 [place] ABS# 0.3 K/ul 03/13/2016 Cbc With Differential Ord2 Eos ABS# 0.1 K/ul 03/13/2016 Cbc With Differential Ord2 Baso ABS# 0.0 K/ul 03/13/2016 Comp Metabolic Ogj125 NA 139 mEq/L 03/13/2016 Comp Metabolic Xjz392 K 4.3 mEq/L 03/13/2016 Comp Metabolic Hsm438 CL 103 mEq/L 03/13/2016 Comp Metabolic Qzj767 CO2 28.0 mEq/L 03/13/2016 Comp Metabolic Acw569 ANION GAP 12 03/13/2016 Comp Metabolic Ugx749 GLUCOSE 200 mg/dL 03/13/2016 Comp Metabolic Ohl486 Creat 0.9 mg/dL 03/13/2016 Comp Metabolic Qmb357 eGFR 69 ml/min/1.73m2 03/13/2016 Comp Metabolic Dfk066 BUN 19 mg/dL 03/13/2016 Comp Metabolic Exu572 B/C Ratio 22.4 Ratio 03/13/2016 Comp Metabolic Uvf654 CALCIUM 9.0 mg/dL 03/13/2016 Comp Metabolic Plj592 ALK PHOS 57 U/L 03/13/2016 Comp Metabolic Vpe020 AST(SGOT) 13 U/L 03/13/2016 Comp Metabolic Eda935 ALT(SGPT) 16 U/L 03/13/2016 Comp Metabolic Qbm512 BILI T 0.4 mg/dL 03/13/2016 Comp Metabolic Mmj917 ALBUMIN 4.2 g/dL 03/13/2016 Comp Metabolic Huh556 TPRO 6.3 g/dL 03/13/2016 Comp Metabolic Smp099 GLOB 2.1 g/dL 03/13/2016 Comp Metabolic Zdg671 A/G Ratio 2.0 Ratio 03/13/2016 Comp Metabolic Nuz515 Osmo 285 mOsmo 03/13/2016 %Hba1C Zgn430 % HbA1c 05347-3 8.3 % 11/14/2015 %Hba1C Ifq023 Gluc Ave 192 mg/dL 11/14/2015 Lipid Ord30 CHOL 210 mg/dL 07/19/2015 Lipid Ord30 HDL 43.0 mg/dl 07/19/2015 Lipid Ord30 TRIG 311 mg/dL 07/19/2015 Lipid Ord30 LDL 105 mg/dL 07/19/2015 Lipid Ord30 C/HDL 4.9 Ratio 07/19/2015 %Hba1C Ucp227 % HbA1c 08633-7 7.6 % 07/19/2015 %Hba1C Cxo014 Gluc Ave 171 mg/dL 07/19/2015 Cbc With [...] 28.8 pg 07/19/2015 Cbc With Differential Ord2 [place]% 6.1 % 07/19/2015 Cbc With Differential Ord2 Eos% 1.3 % 07/19/2015 Cbc With Differential Ord2 MCHC 32.9 pg 07/19/2015 Cbc With Differential Ord2 Baso% 0.4 % 07/19/2015 Cbc With Differential Ord2 PLT 304 K/ul 07/19/2015 Cbc With Differential Ord2 RDW 14.6 % 07/19/2015 Cbc With Differential Ord2 Neut ABS# 3.33 K/ul 07/19/2015 Cbc With Differential Ord2 Lymph ABS# 1.63 K/ul 07/19/2015 Cbc With Differential Ord2 [place] ABS# 0.3 K/ul 07/19/2015 Cbc With Differential Ord2 Eos ABS# 0.1 K/ul 07/19/2015 Cbc With Differential Ord2 Baso ABS# 0.0 K/ul 07/19/2015 Cbc With Differential Ord2 New Analyzer Notice Please note new ref ranges starting 03-27-2015 due to implemntation of new five part differential hematolgy analyzer. 07/19/2015 Comp Metabolic Kyw203 NA 138 mEq/L 07/19/2015 Comp Metabolic Olb848 K 4.3 mEq/L 07/19/2015 Comp Metabolic Iix157 CL 100 mEq/L 07/19/2015 Comp Metabolic Ehn342 CO2 33.0 mEq/L 07/19/2015 Comp Metabolic Yjs065 ANION GAP 9 07/19/2015 Comp Metabolic Tny270 GLUCOSE 149 mg/dL 07/19/2015 Comp Metabolic Dkp238 Creat 0.9 mg/dL 07/19/2015 Comp Metabolic Vmk983 eGFR 62 ml/min/1.73m2 07/19/2015 Comp Metabolic Gnj367 BUN 19 mg/dL 07/19/2015 Comp Metabolic Ebm555 B/C Ratio 20.2 Ratio 07/19/2015 Comp Metabolic Mtd546 CALCIUM 9.5 mg/dL 07/19/2015 Comp Metabolic Vwx624 ALK PHOS 52 U/L 07/19/2015 Comp Metabolic Und083 AST(SGOT) 15 U/L 07/19/2015 Comp Metabolic Gxa320 ALT(SGPT) 14 U/L 07/19/2015 Comp Metabolic Cda106 BILI T 0.5 mg/dL 07/19/2015 Comp Metabolic Cws678 ALBUMIN 4.4 g/dL 07/19/2015 Comp Metabolic Fkl506 TPRO 6.4 g/dL 07/19/2015 Comp Metabolic Qax422 GLOB 2.0 g/dL 07/19/2015 Comp Metabolic Fgn953 A/G Ratio 2.2 Ratio 07/19/2015 Comp Metabolic Bdq011 Osmo 281 mOsmo 07/19/2015 Free T4 Mma782 FREE T4 0.92 ng/dL 07/19/2015 Tsh Ord6 hTSH II 1.95 uIU/mL 07/19/2015 Microalbumin Kmg320 MicroAlb 0.4 mg/dL 07/19/2015 Comp Metabolic Gxy292 NA 137 mEq/L 12/04/2014 Comp Metabolic Ibi993 K 4.0 mEq/L 12/04/2014 Comp Metabolic Dpc054 CL 100 mEq/L 12/04/2014 Comp Metabolic Evz375 CO2 29.0 mEq/L 12/04/2014 Comp Metabolic Avp352 ANION GAP 12 12/04/2014 Comp Metabolic Mrg392 GLUCOSE 171 mg/dL 12/04/2014 Comp Metabolic Epa673 Creat 1.0 mg/dL 12/04/2014 Comp Metabolic Xzm610 eGFR 60 ml/min/1.73m2 12/04/2014 Comp Metabolic Kpd429 BUN 25 mg/dL 12/04/2014 Comp Metabolic Ybm692 B/C Ratio 25.8 Ratio 12/04/2014 Comp Metabolic Xhq204 CALCIUM 9.4 mg/dL 12/04/2014 Comp Metabolic Vmp651 ALK PHOS 60 U/L 12/04/2014 Comp Metabolic Hsy075 AST(SGOT) 13 U/L 12/04/2014 Comp Metabolic Tfu368 ALT(SGPT) 17 U/L 12/04/2014 Comp Metabolic Rui293 BILI T 0.4 mg/dL 12/04/2014 Comp Metabolic Kga423 ALBUMIN 4.4 g/dL 12/04/2014 Comp Metabolic Ytb383 TPRO 6.9 g/dL 12/04/2014 Comp Metabolic Zew958 GLOB 2.5 g/dL 12/04/2014 Comp Metabolic Ygd486 A/G Ratio 1.8 Ratio 12/04/2014 Comp Metabolic Dvn188 Osmo 282 mOsmo 12/04/2014 Tsh Ord6 hTSH II 1.78 uIU/mL 12/04/2014 %Hba1C Zgd971 % HbA1c 12169-2 8.3 % 12/04/2014 %Hba1C Sak174 Gluc Ave 192 mg/dL 12/04/2014 Free T4 Zxy130 FREE T4 0.85 ng/dL 12/04/2014 Lipid Ord30 [...] Result Effective Dates Constitutional No recent illness 2018 Constitutional No anorexia 03/28/2018 Constitutional No night sweats 2018 Constitutional No chills 03/28/2018 Constitutional No diaphoresis 03/28/2018 Constitutional fatigue 03/28/2018 Constitutional No fever 03/28/2018 Constitutional insomnia 03/28/2018 Constitutional No malaise 03/28/2018 Eyes No eye discharge 03/28/2018 Eyes No eye erythema 03/28/2018 Eyes No eye pain 03/28/2018 Ears/Nose/Throat/Neck No dizziness 2018 Ears/Nose/Throat/Neck No dysphagia 2018 Ears/Nose/Throat/Neck No facial pain Ears/Nose/Throat/Neck No headache 2018 Ears/Nose/Throat/Neck No hearing loss Ears/Nose/Throat/Neck No nasal discharge 03/28/2018 Ears/Nose/Throat/Neck No otalgia 2018 Cardiovascular No chest pain/pressure Cardiovascular No edema 03/28/2018 Cardiovascular No palpitations 2018 Respiratory No productive sputum 2018 Respiratory No wheezing 03/28/2018 Gastrointestinal No abdominal pain 2018 Gastrointestinal constipation 03/28/2018 Gastrointestinal No diarrhea 03/28/2018 Gastrointestinal gas and bloating 2018 Gastrointestinal No nausea 03/28/2018 Gastrointestinal No vomiting 03/28/2018 Genitourinary/Nephrology No dysuria 03/28 Genitourinary/Nephrology urinary frequency 03/28/2018 Musculoskeletal back pain 03/28/2018 Musculoskeletal No joint complaint 2018 Dermatologic No rash 03/28/2018 Dermatologic No sores 03/28/2018 Neurologic No alteration of consciousness 03/28/2018 Psychiatric No confusion 03/28/2018 Psychiatric anxiety 03/28/2018 Endocrine diabetes mellitus type 2 2018 Constitutional No recent illness 2017 Constitutional No anorexia 02/24/2018 Constitutional No night sweats 2017 Constitutional No chills 02/24/2018 Constitutional No diaphoresis 02/24/2018 Constitutional fatigue 02/24/2018 Constitutional No fever 02/24/2018 Constitutional insomnia 02/24/2018 Constitutional No malaise 02/24/2018 Constitutional No weight loss 02/24/2018 Constitutional No weight gain 02/24/2018 Eyes No eye erythema 02/24/2018 Eyes No eye discharge 02/24/2018 Ears/Nose/Throat/Neck No dizziness 2017 Ears/Nose/Throat/Neck No headache 2017 Cardiovascular No chest pain/pressure Gastrointestinal No abdominal pain 2017 Gastrointestinal constipation 02/24/2018 Gastrointestinal No diarrhea 02/24/2018 Gastrointestinal gas and bloating 2017 Gastrointestinal No vomiting 02/24/2018 Gastrointestinal No nausea 02/24/2018 Genitourinary/Nephrology No dysuria 02/24 Genitourinary/Nephrology urinary frequency 02/24/2018 Musculoskeletal back pain 02/24/2018 Dermatologic No rash 02/24/2018 Dermatologic No sores 02/24/2018 Neurologic No alteration of consciousness 02/24/2018 Psychiatric anxiety 02/24/2018 Endocrine diabetes mellitus type 2 2017 Eyes No eye pain 02/24/2018 Ears/Nose/Throat/Neck No dysphagia 2017 Ears/Nose/Throat/Neck No facial pain Ears/Nose/Throat/Neck No hearing loss Ears/Nose/Throat/Neck No nasal discharge 02/24/2018 Ears/Nose/Throat/Neck No otalgia 2017 Cardiovascular No edema 02/24/2018 Cardiovascular No palpitations 2017 Respiratory No productive sputum 2017 Respiratory No wheezing 02/24/2018 Musculoskeletal No joint complaint 2017 Psychiatric No confusion 02/24/2018 Constitutional No fever 01/27/2018 Constitutional No malaise 01/27/2018 Eyes No eye pain 01/27/2018 Eyes No eye erythema 01/27/2018 Eyes No eye discharge 01/27/2018 Ears/Nose/Throat/Neck No dysphagia 2017 Ears/Nose/Throat/Neck No facial pain Ears/Nose/Throat/Neck No headache 2017 Ears/Nose/Throat/Neck No hearing loss Ears/Nose/Throat/Neck No nasal discharge 01/27/2018 Ears/Nose/Throat/Neck No otalgia 2017 Cardiovascular No edema 01/27/2018 Cardiovascular No chest pain/pressure Cardiovascular No palpitations 2017 Respiratory No productive sputum 2017 Respiratory No wheezing 01/27/2018 Gastrointestinal No abdominal pain 2017 Gastrointestinal No vomiting 01/27/2018 Gastrointestinal No nausea 01/27/2018 Constitutional No recent illness 2017 Constitutional No anorexia 01/27/2018 Constitutional No night sweats 2017 Constitutional No chills 01/27/2018 Constitutional No diaphoresis 01/27/2018 Constitutional No fatigue 01/27/2018 Constitutional No insomnia 01/27/2018 Constitutional No weight loss 01/27/2018 Constitutional No weight gain 01/27/2018 Respiratory cough 01/27/2018 Genitourinary/Nephrology No dysuria 01/27 Musculoskeletal No joint complaint 2017 Dermatologic No rash 01/27/2018 Neurologic No alteration of consciousness 01/27/2018 Psychiatric No confusion 01/27/2018 Constitutional No recent illness 2017 Constitutional No chills 11/25/2017 Constitutional No diaphoresis 11/25/2017 Constitutional No fever 11/25/2017 Eyes No blindness 11/25/2017 Ears/Nose/Throat/Neck No nasal discharge 11/25/2017 Cardiovascular No chest pain/pressure Cardiovascular No dyspnea 11/25/2017 Cardiovascular No palpitations 2017 Respiratory No chest tightness 2017 Respiratory No cough 11/25/2017 Gastrointestinal No abdominal pain 2017 Gastrointestinal No constipation 2017 Genitourinary/Nephrology No urinary urgency 11/25/2017 Genitourinary/Nephrology No urinary frequency 11/25/2017 Dermatologic No rash 11/25/2017 Neurologic No alteration of consciousness 11/25/2017 Neurologic No mental status change 2017 Psychiatric anxiety 11/25/2017 Endocrine diabetes mellitus type 2 2017 Constitutional No anorexia 11/25/2017 Constitutional No night sweats 2017 Cardiovascular No edema 11/25/2017 Musculoskeletal carpal tunnel syndrome Constitutional No recent illness 2017 Constitutional No [...] 1994 Constitutional general appearance Overall: well developed 03/28/2018 None Full Exam - General 1994 Constitutional general appearance Overall: in no acute distress 03/28/2018 None Full Exam - General 1994 Constitutional general appearance Overall: well nourished 03/28/2018 None Full Exam - General 1994 Constitutional general appearance Hygiene/Attention to Grooming: good hygiene 03/28/2018 None Full Exam - General 1994 Eyes conjunctiva /eyelids Overall: conjunctiva clear 03/28/2018 None Full Exam - General 1994 Eyes conjunctiva /eyelids Overall: cornea clear 03/28/2018 None Full Exam - General 1994 Eyes conjunctiva /eyelids Overall: eyelids normal 03/28/2018 None Full Exam - General 1994 Eyes pupils and irises Overall: pupils equal, round, reactive to light and accomodation 03/28/2018 None Full Exam - General 1994 Ears/Nose/Throat lips/teeth/gingiva Overall: benign lips 03/28/2018 None Full Exam - General 1994 Ears/Nose/Throat oral cavity/pharynx/larynx Overall: oral mucosa clear 03/28/2018 None Full Exam - General 1994 Respiratory auscultation Overall: breath sounds clear bilaterally 03/28/2018 None Full Exam - General 1994 Respiratory respiratory effort/rhythm Overall: no retractions 03/28/2018 None Full Exam - General 1994 Respiratory respiratory effort/rhythm Overall: normal rate 03/28/2018 None Full Exam - General 1994 Cardiovascular extremities Overall: no clubbing 03/28/2018 None Full Exam - General 1994 Cardiovascular auscultation of heart Overall: regular rate 03/28/2018 None Full Exam - General 1994 Cardiovascular auscultation of heart Overall: normal heart sounds 03/28/2018 None Full Exam - General 1994 Cardiovascular auscultation of heart Systolic murmur: holosystolic 03/28/2018 None Full Exam - General 1994 Cardiovascular auscultation of heart Systolic murmur grade: III/ 03/28/2018 None Full Exam - General 1994 Abdomen abdominal exam Overall: no tenderness 03/28/2018 None Full Exam - General 1994 Abdomen abdominal exam Overall: normal bowel sounds 03/28/2018 None Full Exam - Cardiology Musculoskeletal back Spine: tender @ lumbar spine 03/28/2018 None Full Exam - General 1994 Lymphatic neck nodes Overall: anterior cervical chain benign 03/28/2018 None Full Exam - General 1994 Lymphatic neck nodes Overall: posterior cervical chain benign 03/28/2018 None Full Exam - General 1994 Neurologic cranial nerves Overall: crainial nerves 2 - 12 grossly intact 03/28/2018 None Full Exam - General 1994 Psychiatric orientation/consciousness Overall: oriented to person, place and time 03/28/2018 None Full Exam - General 1994 Psychiatric mood and affect Overall: normal mood and affect 03/28/2018 None Full Exam - General 1994 Psychiatric appearance Overall: well-groomed, good eye contact 03/28/2018 None Full Exam - General 1994 Constitutional general appearance Overall: well developed 02/24/2018 None Full Exam - General 1994 Constitutional general appearance Overall: in no acute distress 02/24/2018 None Full Exam - General 1994 Constitutional general appearance Overall: well nourished 02/24/2018 None Full Exam - General 1994 Constitutional general appearance Hygiene/Attention to Grooming: good hygiene 02/24/2018 None Full Exam - General 1994 Eyes conjunctiva /eyelids Overall: conjunctiva clear 02/24/2018 None Full Exam - General 1994 Eyes conjunctiva /eyelids Overall: cornea clear 02/24/2018 None Full Exam - General 1994 Eyes conjunctiva /eyelids Overall: eyelids normal 02/24/2018 None Full Exam - General 1994 Eyes pupils and irises Overall: pupils equal, round, reactive to light and accomodation 02/24/2018 None Full Exam - General 1994 Ears/Nose/Throat lips/teeth/gingiva Overall: benign lips 02/24/2018 None Full Exam - General 1994 Ears/Nose/Throat oral cavity/pharynx/larynx Overall: oral mucosa clear 02/24/2018 None Full Exam - General 1994 Respiratory auscultation Overall: breath sounds clear bilaterally 02/24/2018 None Full Exam - General 1994 Respiratory respiratory effort/rhythm Overall: no retractions 02/24/2018 None Full Exam - General 1994 Respiratory respiratory effort/rhythm Overall: normal rate 02/24/2018 None Full Exam - General 1994 Cardiovascular extremities Overall: no clubbing 02/24/2018 None Full Exam - General 1994 Cardiovascular auscultation of heart Overall: regular rate 02/24/2018 None Full Exam - General 1994 Cardiovascular auscultation of heart Overall: normal heart sounds 02/24/2018 None Full Exam - General 1994 Cardiovascular auscultation of heart Systolic murmur: holosystolic 02/24/2018 None Full Exam - General 1994 Cardiovascular auscultation of heart Systolic murmur grade: III/ 02/24/2018 None Full Exam - General 1994 Abdomen abdominal exam Overall: no tenderness 02/24/2018 None Full Exam - General 1994 Abdomen abdominal exam Overall: normal bowel sounds 02/24/2018 None Full Exam - General 1994 Lymphatic neck nodes Overall: anterior cervical chain benign 02/24/2018 None Full Exam - General 1994 Lymphatic neck nodes Overall: posterior cervical chain benign 02/24/2018 None Full Exam - General 1994 Neurologic cranial nerves Overall: crainial nerves 2 - 12 grossly intact 02/24/2018 None Full Exam - General 1994 Psychiatric orientation/consciousness Overall: oriented to person, place and time 02/24/2018 None Full Exam - General 1994 Psychiatric mood and affect Overall: normal mood and affect 02/24/2018 None Full Exam - General 1994 Psychiatric appearance Overall: well-groomed, good eye contact 02/24/2018 None Full Exam - Cardiology Musculoskeletal back Spine: tender @ lumbar spine 02/24/2018 None Full Exam - General 1994 Constitutional general appearance Overall: well developed 01/27/2018 None Full Exam - General 1994 Constitutional general appearance Overall: in no acute distress 01/27/2018 None Full Exam - General 1994 Constitutional general appearance Overall: well nourished 01/27/2018 None Full Exam - General 1994 Constitutional general appearance Hygiene/Attention to Grooming: good hygiene 01/27/2018 None Full Exam - General 1994 Eyes conjunctiva /eyelids Overall: conjunctiva clear 01/27/2018 None Full Exam - General 1994 Eyes conjunctiva /eyelids Overall: cornea clear 01/27/2018 None Full Exam - General 1994 Eyes conjunctiva /eyelids Overall: eyelids normal 01/27/2018 None Full Exam - General 1994 Eyes pupils and irises Overall: pupils equal, round, reactive to light and accomodation 01/27/2018 None Full Exam - General 1994 Ears/Nose/Throat lips/teeth/gingiva Overall: benign lips 01/27/2018 None Full Exam - General 1994 Ears/Nose/Throat oral cavity/pharynx/larynx Overall: oral mucosa clear 01/27/2018 None Full Exam - General 1994 Respiratory auscultation Overall: breath sounds clear bilaterally 01/27/2018 None Full Exam - General 1994 Respiratory respiratory effort/rhythm Overall: no retractions 01/27/2018 None Full Exam - General 1994 Respiratory respiratory effort/rhythm Overall: normal rate 01/27/2018 None Full Exam - General 1994 Cardiovascular extremities Overall: no clubbing 01/27/2018 None Full Exam - General 1994 Cardiovascular auscultation of heart Overall: regular rate 01/27/2018 None Full Exam - General 1994 Cardiovascular auscultation of heart Overall: normal heart sounds 01/27/2018 None Full Exam - General 1994 Cardiovascular auscultation of heart Systolic murmur: holosystolic 01/27/2018 None Full Exam - General 1994 Cardiovascular auscultation of heart Systolic murmur grade: III/ 01/27/2018 None Full Exam - General 1994 Abdomen abdominal exam Overall: no tenderness 01/27/2018 None Full Exam - General 1994 Abdomen abdominal exam Overall: normal bowel sounds 01/27/2018 None Full Exam - General 1994 Lymphatic neck nodes Overall: anterior cervical chain benign 01/27/2018 None Full Exam - General 1994 Lymphatic neck nodes Overall: posterior cervical chain benign 01/27/2018 None Full Exam - General 1994 Neurologic cranial nerves Overall: crainial nerves 2 - 12 grossly intact 01/27/2018 None Full Exam - General 1994 Psychiatric orientation/consciousness Overall: oriented to person, place and time 01/27/2018 None Full Exam - General 1994 Psychiatric mood and affect Overall: normal mood and affect 01/27/2018 None Full Exam - General 1994 Psychiatric appearance Overall: well-groomed, good eye contact 01/27/2018 None Full Exam - General 1994 Constitutional general appearance Overall: well developed 11/25/2017 None Full Exam - General 1994 Constitutional general appearance Overall: in no acute distress 11/25/2017 None Full Exam - General 1994 Constitutional general appearance Overall: well nourished 11/25/2017 None Full Exam - General 1994 Constitutional general appearance Hygiene/Attention to Grooming: good hygiene 11/25/2017 None Full Exam - General 1994 Eyes conjunctiva /eyelids Overall: conjunctiva clear 11/25/2017 None Full Exam - General 1994 Eyes conjunctiva /eyelids Overall: cornea clear 11/25/2017 None Full Exam - General 1994 Eyes conjunctiva /eyelids Overall: eyelids normal 11/25/2017 None Full Exam - General 1994 Eyes pupils and irises Overall: pupils equal, round, reactive to light and accomodation 11/25/2017 None Full Exam - General 1994 Ears/Nose/Throat lips/teeth/gingiva Overall: benign lips 11/25/2017 None Full Exam - General 1994 Ears/Nose/Throat oral cavity/pharynx/larynx Overall: oral mucosa clear 11/25/2017 None Full Exam - General 1994 Respiratory auscultation Overall: breath sounds clear bilaterally 11/25/2017 None Full Exam - General 1994 Respiratory respiratory effort/rhythm Overall: no retractions 11/25/2017 None Full Exam - General 1994 Respiratory respiratory effort/rhythm Overall: normal rate 11/25/2017 None Full Exam - General 1994 Cardiovascular extremities Overall: no clubbing 11/25/2017 None Full Exam - General 1994 Cardiovascular auscultation of heart Overall: regular rate 11/25/2017 None Full Exam - General 1994 Cardiovascular auscultation of heart Overall: normal heart sounds 11/25/2017 None Full Exam - General 1994 Cardiovascular auscultation of heart Systolic murmur: holosystolic 11/25/2017 None Full Exam - General 1994 Cardiovascular auscultation of heart Systolic murmur grade: III/ 11/25/2017 None Full Exam - General 1994 Abdomen abdominal exam Overall: no tenderness 11/25/2017 None Full Exam - General 1994 Abdomen abdominal exam Overall: normal bowel sounds 11/25/2017 None Full Exam - General 1994 Lymphatic neck nodes Overall: anterior cervical chain benign 11/25/2017 None Full Exam - General 1994 Lymphatic neck nodes Overall: posterior cervical chain benign 11/25/2017 None Full Exam - General 1994 Neurologic cranial nerves Overall: crainial nerves 2 - 12 grossly intact 11/25/2017 None Full Exam - General 1994 Psychiatric orientation/consciousness Overall: oriented to person, place and time 11/25/2017 None Full Exam - General 1994 Psychiatric mood and affect Overall: normal mood and affect 11/25/2017 None Full Exam - General 1994 Psychiatric appearance Overall: well-groomed, good eye contact 11/25/2017 None Full Exam - General 1994 Musculoskeletal upper extremity Palpation - wrist: positive Tinel's test 11/25/2017 None Full Exam - General 1994 Constitutional [...] sounds 05/12/2017 None Full Exam - General 1995 Lymphatic neck nodes Overall: anterior cervical chain [...] hygiene 04/15/2017 None Full Exam - General 1994 Eyes conjunctiva /eyelids Overall: conjunctiva clear 04/15/2017 [...] lips 04/16/2016 None Full Exam - General 1994 Ears/Nose/Throat lips/teeth/gingiva Overall: normal dentition 04/16/2016 None Full Exam - General 1994 Ears/Nose/Throat oral cavity/pharynx/larynx Overall: oral mucosa clear 04/16/2016 None Full Exam - General 1994 Ears/Nose/Throat oral cavity/pharynx/larynx Overall: oropharyngeal mucosa clear 04/16/2016 None Full Exam - General 1994 Ears/Nose/Throat oral cavity/pharynx/larynx Overall: hypopharynx benign 04/16/2016 [...] kyphosis 08/14/2014 None Procedures Procedure Codes Date URINALYSIS NONAUTO W/O SCOPE CPT-4: 00297 02/24/2018 URINALYSIS NONAUTO W/O SCOPE CPT-4: 10368 02/07/2018 ADMIN INFLUENZA VIRUS VAC CPT-4: G0008 11/25/2017 FLU VAC NO PRSV 4 ANABELLE 3 YRS+ CPT-4: 05063 11/25/2017 GLUC MONITOR CONT PHYS I&R CPT-4: 05723 10/26/2017 GLUCOSE MONITORING CONT CPT-4: 92238 10/11/2017 URINALYSIS NONAUTO W/O SCOPE CPT-4: 92561 04/15/2017 FLU VAC NO PRSV 4 ANABELLE 3 YRS+ CPT-4: 17672 12/17/2016 ADMIN INFLUENZA VIRUS VAC CPT-4: G0008 12/17/2016 FLU VACC PRSV FREE INC ANTIG Formatting Model/CDA Sections, Assigned to/Nery Daniels CPT-4: [id number] 11/14/2015 ADMIN INFLUENZA VIRUS VAC CPT-4: G0008 11/14/2015 ADMIN INFLUENZA VIRUS VAC Formatting Model/CDA Sections, Assigned to/Nery Daniels CPT-4: [id number] 12/04/2014 FLU VACC 4 ANABELLE 3 YRS PLUS IM SNOMED CT: [id number] CPT-4: 59396 12/04/2014 Vital Signs Date Vital 03/28/2018 Blood Pressure 1: 140/74 Code : 8480-6 BMI: 28.1 Code : 19990-9 Heart Rate 1 : 87 bpm Height: 5' SpO2: 99% Weight: 144 lbs 02/24/2018 Blood Pressure 1: 130/62 Code : 8480-6 BMI: 28.9 Code : 64930-0 Heart Rate 1 : 57 bpm Height: 5' SpO2: 99% Weight: 148 lbs 01/27/2018 Blood Pressure 1: 142/70 Code : 8480-6 BMI: 29.5 Code : 27953-9 Heart Rate 1 : 61 bpm Height: 5' SpO2: 99% Weight: 151 lbs 11/25/2017 Blood Pressure 1: 148/72 Code : 8480-6 BMI: 30.9 Code : 87051-7 Heart Rate 1 : 62 bpm Height: 5' SpO2: 98% Weight: 158 lbs 10/26/2017 Blood Pressure 1: 156/74 Code : 8480-6 BMI: 31.2 Code : 35035-6 Heart Rate 1 : 71 bpm Height: 5' SpO2: 98% Weight: 160 lbs 10/11/2017 Blood Pressure 1: 128/70 Code : 8480-6 BMI: 30.9 Code : 33241-0 Heart Rate 1 : 70 bpm Height: 5' SpO2: 95% Weight: 158 lbs 09/22/2017 Blood Pressure 1: 110/52 Code : 8480-6 BMI: 30.9 Code : 79569-6 Heart Rate 1 : 72 bpm Height: 5' SpO2: 99% Weight: 158 lbs 07/06/2017 Blood Pressure 1: 120/85 Code : 8480-6 BMI: 31.4 Code : 94625-5 Heart Rate 1 : 74 bpm Height: 5' SpO2: 92% Weight: 161 lbs 06/03/2017 Blood Pressure 1: 120/62 Code : 8480-6 BMI: 31.1 Code : 63482-9 Heart Rate 1 : 73 bpm Height: 5' SpO2: 99% Weight: 159 lbs 05/12/2017 Blood Pressure 1: 132/68 Code : 8480-6 BMI: 32.4 Code : 85502-9 Heart Rate 1 : 95 bpm Height: 5' SpO2: 97% Weight: 166 lbs 04/15/2017 Blood Pressure 1: 128/84 Code : 8480-6 BMI: 32.4 Code : 34049-5 Heart Rate 1 : 62 bpm Height: 5' SpO2: 97% Weight: 166 lbs 03/19/2017 Blood Pressure 1: 112/60 Code : 8480-6 BMI: 32.0 Code : 01892-8 Height: 5' Weight: 164 lbs 02/03/2017 Blood Pressure 1: 128/76 Code : 8480-6 BMI: 33.4 Code : 58390-0 Heart Rate 1 : 91 bpm Height: 5' SpO2: 99% Weight: 171 lbs 01/07/2017 Blood Pressure 1: 126/74 Code : 8480-6 BMI: 34.2 Code : 15899-4 Heart Rate 1 : 83 bpm Height: 5' SpO2: 97% Weight: 175 lbs 12/17/2016 Blood Pressure 1: 122/72 Code : 8480-6 BMI: 34.0 Code : 55740-6 Heart Rate 1 : 78 bpm Height: 5' SpO2: 97% Weight: 174 lbs 09/14/2016 Blood Pressure 1: 128/86 Code : 8480-6 BMI: 33.8 Code : 05026-2 Heart Rate 1 : 88 bpm Height: 5' SpO2: 96% Weight: 173 lbs 06/18/2016 Blood Pressure 1: 122/74 Code : 8480-6 BMI: 34.8 Code : 82480-7 Heart Rate 1 : 78 bpm Height: 5' SpO2: 98% Weight: 178 lbs 04/16/2016 Blood Pressure 1: 134/68 Code : 8480-6 BMI: 35.0 Code : 09072-5 Heart Rate 1 : 67 bpm Height: 5' SpO2: 97% Weight: 179 lbs 03/19/2016 Blood Pressure 1: 132/74 Code : 8480-6 BMI: 34.6 Code : 11103-2 Heart Rate 1 : 74 bpm Height: 5' SpO2: 97% Weight: 177 lbs 11/14/2015 Blood Pressure 1: 132/70 Code : 8480-6 BMI: 35.2 Code : 12830-0 Heart Rate 1 : 68 bpm Height: 5' Weight: 180 lbs 08/14/2015 Blood Pressure 1: 122/74 Code : 8480-6 BMI: 33.8 Code : 72972-3 Heart Rate 1 : 73 bpm Height: 5' SpO2: 93% Weight: 173 lbs 07/17/2015 Blood Pressure 1: 138/78 Code : 8480-6 BMI: 34.0 Code : 33766-3 Heart Rate 1 : 85 bpm Height: 5' SpO2: 97% Weight: 174 lbs 03/25/2015 Blood Pressure 1: 130/78 Code : 8480-6 BMI: 33.2 Code : 15500-5 Heart Rate 1 : 77 bpm Height: 5' SpO2: 97% Weight: 170 lbs 12/04/2014 Blood Pressure 1: 120/74 Code : 8480-6 BMI: 35.4 Code : 50010-0 Heart Rate 1 : 67 bpm Height: 5' SpO2: 94% Weight: 181 lbs 5 oz 08/14/2014 Blood Pressure 1: 132/68 Code : 8480-6 BMI: 32.1 Code : 13604-5 Heart Rate 1 : 62 bpm Height: 5'3" SpO2: 97% Weight: 184 lbs Functional Status No Functional Status data History of Present Illness Symptom Name Status Result Effective Date Notes Location in the RLQ 03/28/2018 None Radiating the back None Quality acute 2018 None Quality sharp 2018 None Onset and Resolution ongoing 03/28/2018 None Onset of Symptom 1+ months ago 03/28/2018 None Limitation on Activities moderately limits activities 03/28/2018 None Frequency of Episodes daily 03/28/2018 None Triggers no known associated factors 03/28/2018 None Pertinent Findings nausea 03/28/2018 None Quality insulin dependent 03/28/2018 None Quality chronic 03/28 None Alleviating Factors medication 03/28/2018 None Alleviating Factors insulin 03/28/2018 None Exacerbating Factors diet 03/28/2018 None Pertinent Findings Denies dizziness 03/28/2018 None Pertinent Findings Denies dyspnea 03/28/2018 None Pertinent Findings Denies nausea 03/28/2018 None Pertinent Findings numbness 03/28/2018 in her feet Onset of Symptom onset as an adult 03/28/2018 None Quality chronic 03/28 None Quality primary hypertension 03/28/2018 None Onset and Resolution ongoing 03/28/2018 None Onset of Symptom during adulthood 03/28/2018 None Blood Pressure Values not checking blood pressure at home 03/28/2018 None Alleviating Factors medication 03/28/2018 None Pertinent Findings Denies edema 03/28/2018 None Location on both sides 03/28/2018 None Quality intermittent 03/28/2018 None Quality worsening None Onset and Resolution ongoing 03/28/2018 None Limitation on Activities allows weight bearing activity 03/28/2018 None Limitation on Activities moderately limits activities 03/28/2018 None Frequency of Episodes daily 03/28/2018 -worse at night Alleviating Factors changing position 03/28/2018 None Exacerbating Factors lying down 03/28/2018 None Quality insulin dependent 02/24/2018 None Quality chronic 02/24 None Alleviating Factors medication 02/24/2018 None Alleviating Factors insulin 02/24/2018 None Exacerbating Factors diet 02/24/2018 None Pertinent Findings Denies dizziness 02/24/2018 None Pertinent Findings Denies dyspnea 02/24/2018 None Pertinent Findings Denies nausea 02/24/2018 None Onset of Symptom onset as an adult 02/24/2018 None Quality chronic 02/24 None Quality primary hypertension 02/24/2018 None Onset and Resolution ongoing 02/24/2018 None Onset of Symptom during adulthood 02/24/2018 None Blood Pressure Values not checking blood pressure at home 02/24/2018 None Alleviating Factors medication 02/24/2018 None Pertinent Findings Denies edema 02/24/2018 None Test results Pt checking blood glucose at home, see scanned readings 02/24/2018 None Test results HgbA1c level 6.8 02/24/2018 None Location on both sides 02/24/2018 None Quality worsening None Quality intermittent 02/24/2018 None Onset and Resolution ongoing 02/24/2018 None Limitation on Activities allows weight bearing activity 02/24/2018 None Limitation on Activities moderately limits activities 02/24/2018 None Frequency of Episodes daily 02/24/2018 -worse at night Exacerbating Factors lying down 02/24/2018 None Alleviating Factors changing position 02/24/2018 None Glucose monitoring daily 02/24/2018 None Pertinent Findings numbness 02/24/2018 in her feet diabetes mellitus Quality insulin dependent 01/27/2018 None diabetes mellitus Quality chronic 01/27/2018 None diabetes mellitus Alleviating Factors medication 01/27/2018 None diabetes mellitus Alleviating Factors insulin 01/27/2018 None diabetes mellitus Exacerbating Factors diet 01/27/2018 None diabetes mellitus Pertinent Findings Denies dizziness 01/27/2018 None diabetes mellitus Onset of Symptom onset as an adult 01/27/2018 None hypertension Quality chronic 01/27/2018 None hypertension Quality primary hypertension 01/27/2018 None hypertension Onset and Resolution ongoing 01/27/2018 None hypertension Onset of Symptom during adulthood 01/27/2018 None hypertension Alleviating Factors medication 01/27/2018 None diabetes mellitus Test results Pt checking blood glucose at home, see scanned readings 2017 None diabetes mellitus Glucose monitoring fasting 01/27/2018 None diabetes mellitus Pertinent Findings Denies dyspnea 01/27/2018 None diabetes mellitus Pertinent Findings nausea 01/27/2018 when she came home from the hospital hypertension Blood Pressure Values not checking blood pressure at home 01/27/2018 None hypertension Pertinent Findings Denies edema 01/27/2018 None diabetes mellitus Test results HgbA1c level 6.5 01/27/2018 None diabetes mellitus Blood glucose levels between 60 and 120 01/27/2018 None diabetes mellitus Blood glucose levels greater than 120 01/27/2018 None diabetes mellitus Glucose monitoring daily 01/27/2018 None diabetes mellitus Exercise no exercise 01/27/2018 None diabetes mellitus Quality insulin dependent 11/25/2017 None diabetes mellitus Quality chronic 11/25/2017 None diabetes mellitus Alleviating Factors medication 11/25/2017 None diabetes mellitus Alleviating Factors insulin 11/25/2017 None diabetes mellitus Exacerbating Factors diet 11/25/2017 None diabetes mellitus Onset of Symptom onset as an adult 11/25/2017 None diabetes mellitus Glucose monitoring daily 11/25/2017 --155 this morning diabetes mellitus Test results Pt checking blood glucose at home, see scanned readings 2017 None diabetes mellitus Pertinent Findings Denies dizziness 11/25/2017 None wrist pain Onset of Symptom 2-3 months ago 11/25/2017 None wrist pain Onset and Resolution ongoing 11/25/2017 None wrist pain Location on the left 11/25/2017 None wrist pain Quality acute 11/25/2017 None wrist pain Quality numbness 11/25/2017 None wrist pain Frequency of Episodes daily 11/25/2017 None wrist pain Limitation on Activities moderately limits activities 11/25/2017 None wrist pain Significant Medical Conditions diabetes mellitus 11/25/2017 None wrist pain Pertinent Findings pain with movement 11/25/2017 None wrist pain Pertinent Findings weakness 11/25/2017 None wrist pain Pertinent Findings decreased range of motion 11/25/2017 None diabetes mellitus Quality insulin dependent 10/26/2017 None [...] data Encounters Encounter Performer Location Codes Date ([id number]) [id number] EST. PATIENT, LEVEL IV Diagnosis: Essential (primary) hypertension[ICD10: I10] Diagnosis: Right upper quadrant pain[ICD10: R10.11] Mila Nicole MD, [facility] CPT-4: 35375 03/28/2018 [id number]) 07660 EST. PATIENT, LEVEL IV Diagnosis: Low back pain[ICD10: M54.5] Diagnosis: Dysuria[ICD10: R30.0] Diagnosis: Type 2 diabetes mellitus with hyperglycemia[ICD10: E11.65] Claudia Nicole MD, [facility] CPT-4: 46048 02/24/2018 [id number]) 48277 EST. PATIENT, LEVEL IV Diagnosis: Type 2 diabetes mellitus with hyperglycemia[ICD10: E11.65] Diagnosis: Essential (primary) hypertension[ICD10: I10] Diagnosis: Major depressive disorder, recurrent, mild[ICD10: F33.0] Diagnosis: Generalized anxiety disorder[ICD10: F41.1] [facility] CPT-4: 62413 01/27/2018 [id number]) 77248 EST. PATIENT, LEVEL IV Diagnosis: Type 2 diabetes mellitus with hyperglycemia[ICD10: E11.65] Diagnosis: Essential (primary) hypertension[ICD10: I10] Diagnosis: Encounter for immunization[ICD10: Z23] Diagnosis: Carpal tunnel syndrome, left upper limb[ICD10: G56.02] Claudia Nicole MD, [facility] CPT-4: 45364 11/25/2017 ([id number]) 19941 EST. PATIENT, LEVEL III Diagnosis: Type 2 diabetes mellitus with hyperglycemia[ICD10: E11.65] lCaudia Nicole MD [facility] CPT-4: 00370 10/26/2017 ([id number]) Miscellaneous no charge Diagnosis: Type 2 diabetes mellitus with hyperglycemia[ICD10: E11.65] Claudia Nicole MD [facility] CPT-4: 28886 10/18/2017 ([id number]) 34866 EST. 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 PATIENT, LEVEL IV Diagnosis: Type 2 diabetes mellitus with hyperglycemia[ICD10: E11.65] Diagnosis: Paroxysmal atrial fibrillation[ICD10: I48.0] Diagnosis: Essential (primary) hypertension[ICD10: I10] Mila Nicole MD [facility] CPT-4: 57716 07/06/2017 ([id number]) 85576 EST. PATIENT, LEVEL IV Diagnosis: Essential (primary) hypertension[ICD10: I10] Diagnosis: Type 2 diabetes mellitus with hyperglycemia[ICD10: E11.65] Diagnosis: Paroxysmal atrial fibrillation[ICD10: I48.0] Claudia Nicole MD [facility] CPT-4: 28904 06/03/2017 21498 EST. PATIENT, LEVEL III Diagnosis: Generalized anxiety disorder[ICD10: F41.1] Diagnosis: Major depressive disorder, recurrent, moderate[ICD10: F33.1] Diagnosis: Paroxysmal tachycardia, unspecified[ICD10: I47.9] Gardenia Nicole MD, [facility] CPT-4: 21584 05/12/2017 ([id number]) 98716 EST. PATIENT, LEVEL IV Diagnosis: Essential (primary) hypertension[ICD10: I10] Diagnosis: Cough[ICD10: R05] Diagnosis: Dysuria[ICD10: R30.0] Mila Nicole MD, [facility] CPT-4: 81888 04/15/2017 ([id number]) 97490 EST. PATIENT, LEVEL IV Diagnosis: Type 2 diabetes mellitus with hyperglycemia[ICD10: E11.65] Diagnosis: Essential (primary) hypertension[ICD10: I10] Mila Nicole MD [facility] CPT-4: 79768 03/19/2017 ([id number]) 22651 EST. PATIENT, LEVEL III Diagnosis: Type 2 diabetes mellitus with hyperglycemia[ICD10: E11.65] Mila Nicole MD [facility] CPT-4: 35370 02/03/2017 58148 EST. PATIENT, LEVEL IV Diagnosis: Generalized anxiety disorder[ICD10: F41.1] Diagnosis: Type 2 diabetes mellitus with hyperglycemia[ICD10: E11.65] Diagnosis: Essential (primary) hypertension[ICD10: I10] Gardenia Nicole MD, [facility] CPT-4: 27963 01/07/2017 ([id number]) 78435 EST. PATIENT, LEVEL III Diagnosis: Type 2 diabetes mellitus with hyperglycemia[ICD10: E11.65] Diagnosis: Encounter for immunization[ICD10: Z23] Mila Nicole MD, [facility] CPT-4: 20740 12/17/2016 [id number]) 87818 EST. PATIENT, LEVEL IV Diagnosis: Type 2 diabetes mellitus with hyperglycemia[ICD10: E11.65] Diagnosis: Essential (primary) hypertension[ICD10: I10] Diagnosis: Major depressive disorder, recurrent, mild[ICD10: F33.0] Mila Nicole MD, [facility] CPT-4: 59938 09/14/2016 ([id number]) 21661 EST. 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 PATIENT, LEVEL IV Diagnosis: Type 2 diabetes mellitus with hyperglycemia[ICD10: E11.65] Diagnosis: Essential (primary) hypertension[ICD10: I10] Mila Nicole MD, [facility] CPT-4: 85298 04/16/2016 ([id number]) 74696 EST. 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 PATIENT, LEVEL IV Diagnosis: Type 2 diabetes mellitus with hyperglycemia[ICD10: E11.65] Diagnosis: Encounter for immunization[ICD10: Z23] Diagnosis: Essential (primary) hypertension[ICD10: I10] Mila Nicole MD, [facility] CPT-4: 88024 11/14/2015 ([id number]) 15301 EST. PATIENT, LEVEL IV Diagnosis: Type 2 diabetes mellitus with hyperglycemia[ICD10: E11.65] Diagnosis: Essential (primary) hypertension[ICD10: I10] Diagnosis: Low back pain[ICD10: M54.5] Mila Nicole MD [facility] CPT- 4: 28269 08/14/2015 ([id number]) 43714 EST. PATIENT, LEVEL IV Diagnosis: Type 2 diabetes mellitus with hyperglycemia[ICD10: E11.65] Diagnosis: Essential (primary) hypertension[ICD10: I10] Diagnosis: Hypothyroidism, unspecified[ICD10: E03.9] Mila Nicole MD, [facility] CPT-4: 69131 07/17/2015 ([id number]) 44932 EST. PATIENT, LEVEL IV Diagnosis: Essential (primary) hypertension[ICD10: I10] Diagnosis: Type 2 diabetes mellitus with hyperglycemia[ICD10: E11.65] Diagnosis: Headache[ICD10: R51] Gardenia Nicole MD, [facility] CPT-4: 95704 03/25/2015 ([id number]) 88468 EST. PATIENT, LEVEL IV Diagnosis: ESSENTIAL HYPERTENSION[ICD9: 401.9] Diagnosis: DIABETES TYPE II[ICD9: 250.00] Diagnosis: Aortic stenosis[ICD9: 424.1] Mila Nciole MD, [facility] CPT- 4: 96972 12/04/2014 ([id number]) OFFICE VISIT, NEW - LEVEL 4 Diagnosis: ESSENTIAL HYPERTENSION[ICD9: 401.9] Diagnosis: Diabetes mellitus out of control[ICD9: 250.02] [facility] CPT-4: 40936 08/14/2014 Plan of Care Planned Activity Notes Codes Status Date Visit Plan: Right upper abdominal pain radiating to the back - I have sent pt for a gallbladder ultrasound - Report was looked up after clinic - the report is that she has multiple gallstones - with gallbladder wall thickening - I have called Dr. Lanza - he will see the patient for surgery - planning on adding her on for 03/30/17 - she will have to be off of her Eliquis tonight, Wednesday and Wednesday - this will be enough time for the Eliquis to be out of her system for less bleeding during surgery. Pt alerted about the plan. HTN - controlled fairly well - continue with current regimen. 03/28/2018 Patient Education: Patient Medication Summary Completed 03/28/2018 Patient Education: Hypertension Completed 03/28/2018 Care Plan: ECHO EXAM OF ABDOMEN Pending 03/28/2018 Visit Plan: Low back pain-xray lumbar spine Dysuria- improved-will culture urine IL-yvqmth-zu changes today 02/24/2018 Appointment: Claud[facility] Pruitt [facility]el[facility] [phone] (15 min) Moderate 02/24/2018 Patient Education: Patient Medication Summary Completed 02/24/2018 Patient Education: Back Pain Completed 02/24/2018 Appointment: Lab Draw 02/07/2018 Patient Education: Patient Medication Summary Completed 02/07/2018 Visit Plan: Hypertension - well controlled - [...] readings are starting to become less controlled. Chronic Depression and anxiety - the pt has symptoms of chronic anxiety and depression that have been fairly well controlled since the last office visit. The pt has expected periods of exacerbation with abatement of the symptoms with change in situational exposure. No change in current medications. 01/27/2018 Appointment: Claudia Pruitt WPtel: [address] [place] [address] (15 min) Moderate 01/27/2018 Patient Education: Patient Medication Summary Completed 01/27/2018 Patient Education: Depression Completed 01/27/2018 Visit Plan: Diabetes Mellitus - Uncontrolled - [...] for greater blood glucose control. Hypertension - well controlled - continue with current medications, continue with no added salt diet. Pt has been encouraged to exercise daily. The pt has been advised to call the office if there are any acute concerns about change in blood pressure readings at home. Left wrist pain-carpel tunnel- recommend wrist brace -tylenol as directed -call if symptoms do not improve or if any worse 11/25/2017 Appointment: Claudia Pruitt WPtel: [place] [place] [address] (15 min) Moderate 11/25/2017 Patient Education: Patient Medication Summary Completed 11/25/2017 Appointment: Mila Nicole WPtel: [address] [place], [place] [phone] (15 min) Moderate 10/28/2017 Visit Plan: Diabetes Mellitus -IPRO results reviewed and discussed with patient today in the office -patient is about target range 77% of the time with no low -recommend patient increase her basaglar to 18 units daily and continue to monitor blood sugars -follow up in [address] Nicole and bring log of blood sugars to appt. 10/26/2017 Visit Plan: Diabetes Mellitus -IPRO results reviewed [...] appt. 10/26/2017 Appointment: [facility] [phone] [phone] (15 min) Moderate 10/26/2017 Patient Education: Patient [...] Completed 09/22/2017 Appointment: [facility] [phone] [facility] [place] (15 min) Moderate 09/13/2017 Appointment: Mila Nicole WPtel: [place] (15 min) Moderate 09/07/2017 Visit Plan: Diabetes [...] uncontrolled. 07/06/2017 Appointment: [facility]el[facility] [phone] [facility] (15 min) Moderate 07/06/2017 Patient Education: Patient Medication Summary Completed 07/06/2017 Appointment: Mila Nicole WPtel: [place] (15 min) Moderate 06/07/2017 Visit Plan: Hypertension [...] WPtel: [phone] [phone] (30 min) Complex 06/03/2017 Patient [...] treatment plan 05/12/2017 Appointment: Gardenia Shah [facility]el[facility] [phone] [facility] (30 min) Complex 05/12/2017 Patient Education: [...] ROM-Inhibitor - the class of medication of ORM Inhibitors has a known side effect of chronic cough. He may or may not choose to change the Entresto medication. 04/15/2017 Appointment: [facility] Nicole [facility]Ptel[facility] [phone] [facility] (15 min) Moderate 04/15/2017 Patient Education: Patient [...] daily. 03/19/2017 Appointment: Mila Nicole WPtel: [phone] [facility] [place] (15 min) Moderate 03/19/2017 Patient Education: Patient Medication Summary Completed 03/19/2017 Appointment: [facility] [phone] [facility] (15 min) Moderate 02/24/2017 Visit Plan: Diabetes [...] at HS 02/03/2017 Appointment: [facility]el[facility] [phone] [facility] (15 min) Moderate 02/03/2017 Patient Education: Patient [...] acute concerns. 01/07/2017 Appointment: Garden[facility] Shah [facility] [phone] [facility] (30 min) Complex 01/07/2017 Patient Education: [...] to allow for greater blood glucose control. [email or web address], 02/2018 junior nordisk 12/17/2016 Appointment: Mila Nicole WPtel: [phone] [facility] (15 min) Moderate 12/17/2016 Patient Education: Patient Medication Summary Completed 12/17/2016 Patient Education: Obesity Completed 12/17/2016 Appointment: CoreyMila WPtel: [phone] [facility] (15 min) Moderate 12/14/2016 Visit Plan: Diabetes [...] medications. 09/14/2016 Appointment: Mila Nicole WPtel: [phone] [facility] (15 min) Moderate 09/14/2016 Patient Education: Patient [...] home. 06/18/2016 Appointment: [facility]Ptel[facility] [phone] [facility] (15 min) Moderate 06/18/2016 Patient Education: Patient [...] at home. 04/16/2016 Appointment: [facility] Nicole [facility]Ptel[facility] [phone] [facility] (15 min) Moderate 04/16/2016 Patient Education: Patient [...] gabapentin 03/19/2016 Appointment: [facility] Nicole [facility]Ptel: [phone] [facility] [place] (15 min) Moderate 03/19/2016 Patient Education: [...] at home. 11/14/2015 Appointment: Mila Nicole WPtel: [address] [place] [address] (15 min) Moderate 11/14/2015 Patient Education: Patient [...] diflucan treatment - check Hgba1c 07/17/2015 Appointment: Tun[place]Mila WPtel[facility] [phone] [facility] [place] (15 min) Moderate 07/17/2015 Patient Education: [...] Completed 03/25/2015 Appointment: [facility] Nicole [facility]Ptel[facility] [phone] [facility] (15 min) Moderate 01/14/2015 Visit Plan: Diabetes [...] control. 12/04/2014 Appointment: [facility]Ptel[facility] [phone] [facility] (15 min) Moderate 12/04/2014 Patient Education: Patient [...] glucose control. 08/14/2014 Appointment: Mila Nicole WPtel: [place] [place] (S[place] New Patient 08/14/2014 Patient Education: [...] to allow for greater blood glucose control. [email or web address], 02/2018 junior nordisk CHECK LABS AND UA XRAY LUMBAR . Low back pain-xray lumbar spine Dysuria- improved-will culture urine EB-fadcoa-tq changes today . Hypertension - well controlled - continue [...] bring log of blood sugars to appt. INCREASE BASAGLAR TO 18 UNITS DAILY . Diabetes Mellitus -IPRO results reviewed and discussed with patient today in the office -patient is about target range 77% of the time with no low - recommend patient increase her basaglar to 18 units daily and continue to monitor blood sugars -follow up in [address] Nicole and bring log of blood sugars to appt. tylenol 2 pills three times daily x 5 days left wrist brace increase insulin to 20 units at bedtime . Diabetes Mellitus - Uncontrolled - per [...] for greater blood glucose control. Hypertension - well controlled - continue with current medications, continue with no added salt diet. Pt has been encouraged to exercise daily. The pt has been advised to call the office if there are any acute concerns about change in blood pressure readings at home. Left wrist pain-carpel tunnel-recommend wrist brace -tylenol as directed -call if symptoms do not improve or if any worse On 02/07/17 - stop the Victoza On [...] readings are starting to become less controlled. Chronic Depression and anxiety - the pt [...] Peripheral neuropathy - continue with gabapentin . Right upper abdominal pain radiating to the back - I have sent pt for a gallbladder ultrasound - Report was looked up after clinic - the report is that she has multiple gallstones - with gallbladder wall thickening - I have called Dr. Lanza - he will see the patient for surgery - planning on adding her on for 03/30/17 - she will have to be off of her Eliquis tonight, Wednesday and Wednesday - this will be enough time for the Eliquis to be out of her system for less bleeding during surgery. Pt alerted about the plan. HTN - controlled fairly well - continue with current regimen. Monitor your blood pressure at home and [...]
--- OUTSIDE RECORDS SUMMARY | 2018-03-30 10:30 | XMS REPORT | CCD ---
Author Author [facility] Organization [facility] Address [address] [place] [address] Phone Care Team Providers Care Car Sander Name Role Phone PP Unavailable CCM Unavailable Summary Purpose Interface Exchange Insurance Providers Payer name Policy type / Coverage type Covered democrat ID Effective Begin Date Effective End Date WPS Medicare Part B Medicare Part B [id number] Unknown AARP Medicare Part B [id number] Unknown Family history Mother Diagnosis Age At [...] Unknown 3 08/14/[address]: 424711469 Never smoker 08/14/[address]: 105306472 Never drinks alcohol 08/14/2014 Allergies, Adverse Reactions, Alerts Substance Reaction Codes Entered Date Inactivated Date Status * OTHER REACTION - SEE ANSWER BOX Invokana, Victoza Unknown 07/2017 No Inactive Date Active Paxil has blurred vision RxNorm: 148653 08/14/2014 No Inactive Date Active Lipitor RxNorm: 86137 08/14/2014 No Inactive Date Active Past Medical History Illness Codes Condition Status Onset Date Resolved Date Dysuria ICD-9: 788.1 ICD-10: R30.0 Active 04/15/2017 [...] ICD-9: 786.2 ICD-10: R05 Active 04/15/2017 Unknown Essential (primary) hypertension ICD-9: 401.9 ICD-10: I10 Active 08/13/2014 Unknown Hypothyroidism, unspecified ICD-9: 244.9 ICD-10: E03.9 [...] Problems Condition Codes Effective Dates Condition Status Dysuria ICD-9: 788.1 ICD-10: R30.0 04/15/2017 Active [...] Cough ICD-9: 786.2 ICD-10: R05 04/15/2017 Active Essential (primary) hypertension ICD-9: 401.9 ICD-10: I10 08/13/2014 Active Hypothyroidism, unspecified ICD-9: 244.9 ICD-10: E03.9 [...] Start Date Stop Date Status Fill Instructions tramadol 50 mg tablet RxNorm: 765927 1 Tablet(s) PO TID as needed 03/25/2018 No Stop Date Active fluticasone 50 mcg/actuation nasal spray,suspension RxNorm: 1176808 INSTILL ONE SPRAY IN EACH NOSTRILTWICE A DAY 03/16/2018 10/11/2018 Active Generic For:FLONASE SPR 0.05% 03/16/2018 8:50:59 AM Keflex 500 mg capsule RxNorm: 369829 1 Capsule(s) PO TID 201702/10/2018 Inactive Keflex 500 mg capsule RxNorm: 646409 1 Capsule(s) PO TID 201702/20/2018 Inactive metoprolol succinate ER 200 mg tablet,extended release 24 hr RxNorm: 022893 1 Tablet(s) PO daily 01/27/2018 No Stop Date Active Eliquis 2.5 mg tablet RxNorm: 9208719 1 Tablet(s) PO BID 2017 No Stop Date Active digoxin 125 mcg tablet RxNorm: 018733 1 Tablet(s) PO daily No Stop Date Active Basaglar KwikPen U-100 Insulin 100 unit/mL (3 mL) subcutaneous RxNorm: 4498079 20 Unit(s) SQ daily 11/25/201705/23 Active UPDATE RX metformin 500 mg tablet RxNorm: 230844 1 Tablet(s) PO UD 1.5 in morning, noon and 1 at bedtime 10/28/2017 10/22/2018 Active Basaglar KwikPen U-100 Insulin 100 unit/mL (3 mL) subcutaneous RxNorm: 0086064 18 Unit(s) SQ daily 10/26/201711/24 Inactive UPDATE RX levothyroxine 50 mcg tablet RxNorm: 169867 TAKE 1 TABLET BY MOUTH ONCE DAILY 10/15/2017 06/11/2018 Active Generic For:SYNTHROID 50MCG TAB 10/15/2017 9:59:00 AM escitalopram 10 mg tablet RxNorm: 437990 1 Tablet(s) PO QPM 01/201809/16/2018 Active Generic For:LEXAPRO 5MG 01/07/2017 9:05:43 AM Basaglar KwikPen U-100 Insulin 100 unit/mL (3 mL) subcutaneous RxNorm: 5569491 15 Unit(s) SQ daily 09/22/201710/25 Inactive potassium chloride ER 20 mEq tablet,extended release RxNorm: 532654 1 Tablet(s) PO daily 06/22/2017 01/17/2018 Inactive Lantus Solostar U-100 Insulin 100 unit/mL (3 mL) subcutaneous pen RxNorm: 549575 10 Unit(s) SQ daily 06/08/2017 Inactive Basaglar KwikPen U-100 Insulin 100 unit/mL (3 mL) subcutaneous RxNorm: 8499905 10 Unit(s) SQ daily 06/08/201706/07 Inactive Basaglar KwikPen U-100 Insulin 100 unit/mL (3 mL) subcutaneous RxNorm: 4022371 10 Unit(s) SQ daily 06/08/201709/21 Inactive Lexapro 5 mg tablet RxNorm: 874135 1 Tablet(s) PO daily 201711/27/2017 Inactive Lexapro 5 mg tablet RxNorm: 882532 1 Tablet(s) PO daily 201705/31/2017 Inactive bisoprolol 5 mg-hydrochlorothiazide 6.25 mg tablet RxNorm: 506196 1 Tablet(s) PO BID 05/04/2017 06/02/2017 Inactive Keflex 500 mg capsule RxNorm: 946024 1 Capsule(s) PO QID 201704/21/2017 Inactive Lantus Solostar 100 unit/mL (3 mL) subcutaneous insulin pen RxNorm: 430370 10 Unit(s) SQ daily 02/03/2017 06/07/2017 Inactive levothyroxine 50 mcg tablet RxNorm: 380054 TAKE 1 TABLET BY MOUTH ONCE DAILY 02/01/2017 09/28/2017 Inactive Generic For:SYNTHROID 50MCG TAB 02/01/2017 9:20:59 AM gabapentin 600 mg tablet RxNorm: 735145 1 Capsule(s) PO TID 01/21/2018 Inactive Lexapro 5 mg tablet RxNorm: 480502 TAKE 1 TABLET BY MOUTH AT BEDTIME 01/07/2017 09/21/2017 Inactive Generic For:LEXAPRO 5MG 01/07/2017 9:05:43 AM Victoza 2-Dariusz 0.6 mg/0.1 mL (18 mg/3 mL) subcutaneous pen injector RxNorm: 364008 1.8 Milligram(s) SQ daily 12/17/201602/07 Inactive Victoza 3-Dariusz 0.6 mg/0.1 mL (18 mg/3 mL) subcutaneous pen injector RxNorm: 550674 Milligram(s) SQ 12/17/2016 02/07/2017 Inactive Zetia 10 mg tablet RxNorm: 046464 1 Tablet(s) PO daily 201611/11/2017 Inactive fluticasone 50 mcg/actuation nasal spray,suspension RxNorm: 9536083 [place] NASAL ONE SPRAY IN EACH NOSTRIL TWICE DAILY 09/28/2016 04/25/2017 Inactive Victoza 2-Dariusz 0.6 mg/0.1 mL (18 mg/3 mL) subcutaneous pen injector RxNorm: 432159 1.2 Milligram(s) SQ daily 09/14/201612/16 Inactive Lexapro 5 mg tablet RxNorm: 003443 1 Tablet(s) PO QHS 201612/12/2016 Inactive metformin 500 mg tablet RxNorm: 751384 1 Tablet(s) PO UD 1.5 in morning, noon and 1 at bedtime 09/08/2016 09/02/2017 Inactive glimepiride 4 mg tablet RxNorm: 394071 TAKE 1 TABLET BY MOUTH ONCE DAILY 07/31/2016 09/13/2016 Inactive Generic For:*AMARYL 4MG 07/31/2016 9:02:38 AM Victoza 2-Dariusz 0.6 mg/0.1 mL (18 mg/3 mL) subcutaneous pen injector RxNorm: 814295 1.2 Milligram(s) SQ daily 05/18/201609/13 Inactive Victoza 2-Dariusz 0.6 mg/0.1 mL (18 mg/3 mL) subcutaneous pen injector RxNorm: 892736 1.2 Milligram(s) SQ daily 04/16/201605/17 Inactive levothyroxine 50 mcg tablet RxNorm: 129094 TAKE 1 TABLET BY MOUTH ONCE DAILY 04/08/2016 12/03/2016 Inactive Generic For:SYNTHROID 50MCG TAB 04/08/2016 9:05:40 AM levothyroxine 50 mcg tablet RxNorm: 927215 1 Tablet(s) PO daily TAKE 1 TABLET BY MOUTH ONCE DAILY 04/08/2016 12/03/2016 Inactive Generic For:SYNTHROID 50MCG TAB N O T I C E PRESCRIPTION PREVIOUSLY AUTHORIZED BY DOCTOR:HENRY BAIG [phone] bisoprolol 5 mg-hydrochlorothiazide 6.25 mg tablet RxNorm: 718555 1 Tablet(s) PO BID 03/23/2016 03/17/2017 Inactive Victoza 2-Dariusz 0.6 mg/0.1 mL (18 mg/3 mL) subcutaneous pen injector RxNorm: 740850 0.6 Milligram(s) SQ daily 03/19/201604/15 Inactive Lexapro 5 mg tablet RxNorm: 232638 1 Tablet(s) PO QHS 201606/16/2016 Inactive gabapentin 600 mg tablet RxNorm: 039909 1 Capsule(s) PO TID 07/201601/26/2017 Inactive glimepiride 4 mg tablet RxNorm: 803230 1 Tablet(s) PO daily 06/05/2016 Inactive Victoza 3-Dariusz 0.6 mg/0.1 mL (18 mg/3 mL) subcutaneous pen injector RxNorm: 654957 0.6 Milligram(s) SQ daily x2 weeks, then 1.2 mg SQ daily 03/18/2016 Inactive metformin 500 mg tablet RxNorm: 144647 1 Tablet(s) PO UD 1.5 in morning, noon and 1 at bedtime 08/14/2015 08/07/2016 Inactive gabapentin 600 mg tablet RxNorm: 535379 1 Capsule(s) PO TID SHE IS ONLY TAKING 1 QD 08/14/2015 03/18/2016 Inactive fluticasone 50 mcg/actuation nasal spray,suspension RxNorm: 676142 [place] NASAL ONE SPRAY IN EACH NOSTRIL TWICE DAILY 07/26/2015 07/25/2015 Inactive fluticasone 50 mcg/actuation nasal spray,suspension RxNorm: 0743282 [place] NASAL ONE SPRAY IN EACH NOSTRIL TWICE DAILY 07/26/2015 02/20/2016 Inactive bisoprolol 5 mg-hydrochlorothiazide 6.25 mg tablet RxNorm: 778431 1 Tablet(s) PO daily 1 Tablet(s) PO BID 07/17/20152015 Inactive metformin 500 mg tablet RxNorm: 734821 1 Tablet(s) PO TID 1 Tablet(s) PO TID 07/17/2015 08/13/2015 Inactive Diflucan 100 mg tablet RxNorm: 136222 1 Tablet(s) PO daily 06/201507/21/2015 Inactive Zetia 10 mg tablet RxNorm: 973429 1 Tablet(s) PO daily 201506/03/2016 Inactive bisoprolol 5 mg-hydrochlorothiazide 6.25 mg tablet RxNorm: 693056 1 Tablet(s) PO BID 04/18/2015 07/16/2015 Inactive metformin 500 mg tablet RxNorm: 184379 1 Tablet(s) PO TID 03/0106/28/2015 Inactive glimepiride 4 mg tablet RxNorm: 226268 1 Tablet(s) PO daily 01/30/2015 Inactive levothyroxine 50 mcg tablet RxNorm: 372499 TAKE 1 TABLET BY MOUTH ONCE DAILY 01/31/2015 09/27/2015 Inactive Generic For:SYNTHROID 50MCG TAB N O T I C E PRESCRIPTION PREVIOUSLY AUTHORIZED BY DOCTOR:HENRY BAIG glimepiride 4 mg tablet RxNorm: 707699 1 Tablet(s) PO daily 07/29/2015 Inactive Invokana 100 mg tablet RxNorm: 0600464 1 Tablet(s) PO daily 07/16/2015 Inactive bisoprolol 5 mg-hydrochlorothiazide 6.25 mg tablet RxNorm: 277155 1 Tablet(s) PO BID 08/27/2014 02/22/2015 Inactive metformin 500 mg tablet RxNorm: 846838 1 Tablet(s) PO TID 08/1012/07/2014 Inactive metformin 500 mg tablet RxNorm: 472386 1 Tablet(s) PO TID 08/1008/09/2014 Inactive Fish Oil 1,000 mg capsule RxNorm: 1 Capsule(s) PO daily No Start Date Active Protonix 40 mg tablet,delayed release RxNorm: 946177 1 Tablet(s) PO QAM No Start Date Active furosemide 40 mg tablet RxNorm: 807394 1 Tablet(s) PO daily No Start Date Active pen needle, diabetic 31 gauge x 1/6" RxNorm: Miscellaneous No Start Date Active nitroglycerin 0.4 mg sublingual tablet RxNorm: 575942 1 Tablet(s) SL as needed chest pain No Start Date Active amlodipine 5 mg tablet RxNorm: 922068 1 Tablet(s) PO daily No Start Date Active Entresto 24 mg-26 mg tablet RxNorm: 6351701 1 Tablet(s) PO BID No Start Date Active aspirin 81 mg chewable tablet RxNorm: 649586 1 Tablet(s) PO daily No Start Date 06/02/2017 Inactive Eliquis 5 mg tablet RxNorm: 7455059 1 Tablet(s) PO BID No Start Date 01/26/2018 Inactive bisoprolol-hydrochlorothiazide oral RxNorm: 56359 oral No Start Date 08/26/2014 Inactive levothyroxine 50 mcg tablet RxNorm: 793198 1 Tablet(s) PO daily No Start Date 01/30/2015 Inactive potassium chloride ER 20 mEq tablet,extended release RxNorm: 595766 1 Tablet(s) PO daily No Start Date 06/21/2017 Inactive digoxin 250 mcg tablet RxNorm: 699708 1 Tablet(s) PO daily No Start Date 01/26/2018 Inactive Invokana 100 mg tablet RxNorm: 6578555 1 Tablet(s) PO daily No Start Date 12/11/2014 Inactive tramadol 50 mg tablet RxNorm: 892665 1 Tablet(s) PO TID as needed No Start Date 03/22/2018 Inactive Victoza 3-Dariusz 0.6 mg/0.1 mL (18 mg/3 mL) subcutaneous pen injector RxNorm: 403775 0.6 Milligram(s) SQ daily x2 weeks, then 1.2 mg SQ daily No Start Date 12/01/2015 Inactive Effient 10 mg tablet RxNorm: 663369 1 Tablet(s) PO QAM No Start Date 01/26/2018 Inactive Zetia 10 mg tablet RxNorm: 069631 1 Tablet(s) PO BID No Start Date 03/18/2016 Inactive metoprolol succinate ER 100 mg tablet,extended release 24 hr RxNorm: 308708 1 Tablet(s) PO daily No Start Date 2017 Inactive gabapentin 300 mg capsule RxNorm: 855202 1 Capsule(s) PO BID No Start Date 08/13/2015 Inactive Lasix 40 mg tablet RxNorm: 527450 1 Tablet(s) PO BID No Start Date 04/14/2017 Inactive Coreg 3.125 mg tablet RxNorm: 702285 1 Tablet(s) PO BID with meals No [...] 05/12/2017 Cough ICD-10: R05 ICD-9: 786.2 04/15/2017 Essential (primary) hypertension ICD-10: I10 ICD-9: 401.9 03/19/2017 Hypothyroidism, unspecified ICD-10: E03.9 ICD-9: 244.9 07/17/2015 Headache ICD-10: R51 ICD-9: 784.0 03/25/2015 ESSENTIAL HYPERTENSION ICD-9: 401.9 12/04 Aortic stenosis ICD-9: 424.1 12/04/2014 DIABETES TYPE II ICD-9: 250.00 2014 VACCIN FOR INFLUENZA ICD-9: V04.81 2014 Diabetes mellitus out of control ICD-9: 250.02 08/14/2014 Reason For Visit Reason For Visit Effective Dates Notes diabetes mellitus 02/24/2018 diabetes mellitus 01/27/2018 diabetes mellitus 11/25/2017 diabetes mellitus 10/26/2017 diabetes mellitus 10/11/2017 diabetes mellitus 09/22/2017 Hospital Follow Up 07/06/2017 Hospital Follow Up 06/03/2017 arrhythmia 05/12/2017 Hospital Follow Up 04/15/2017 stress test and then shipped to [facility] Follow Up 03/19/2017 stress test and then shipped to [facility] diabetes mellitus 02/03/2017 headache 01/07/2017 diabetes mellitus 12/17/2016 diabetes mellitus 09/14/2016 diabetes mellitus 06/18/2016 medication follow up 04/16/2016 back pain 03/19/2016 back pain 11/14/2015 back pain 08/14/2015 diabetes mellitus 07/17/2015 Hospital Follow Up 03/25/2015 diabetes mellitus 12/04/2014 diabetes mellitus 08/14/2014 Results Observation Observation Code Item Item Code Result Date Culture Urine [id number] URINE CULTURE SEE NOTES 02/28/2018 Urine Culture [...] 28.8 pg 02/24/2018 Cbc With Differential Ord2 [place]% 5.7 % 02/24/2018 Cbc With Differential Ord2 [...] 1.57 K/ul 02/24/2018 Cbc With Differential Ord2 [place] ABS# 0.4 K/ul 02/24/2018 Cbc With Differential Ord2 Eos ABS# 0.1 K/ul 02/24/2018 Cbc With Differential Ord2 Baso ABS# 0.0 K/ul 02/24/2018 Comp Metabolic Qcl186 NA 138 mEq/L 02/24/2018 Comp Metabolic Zvt658 K 4.4 mEq/L 02/24/2018 Comp Metabolic Ayg884 CL 100 mEq/L 02/24/2018 Comp Metabolic Gqx630 CO2 27.0 mEq/L 02/24/2018 Comp Metabolic Zsj062 ANION GAP 15 02/24/2018 Comp Metabolic Ryn560 GLUCOSE 98 mg/dL 02/24/2018 Comp Metabolic Pjm169 Creat 1.0 mg/dL 02/24/2018 Comp Metabolic Qyv953 eGFR 55 ml/min/1.73m2 02/24/2018 Comp Metabolic Kyy267 BUN 25 mg/dL 02/24/2018 Comp Metabolic Scv756 B/C Ratio 24.3 Ratio 02/24/2018 Comp Metabolic Wgs964 CALCIUM 9.4 mg/dL 02/24/2018 Comp Metabolic Eyo075 ALK PHOS 46 U/L 02/24/2018 Comp Metabolic Hdr791 AST(SGOT) 13 U/L 02/24/2018 Comp Metabolic Bmn208 ALT(SGPT) 12 U/L 02/24/2018 Comp Metabolic Evv517 BILI T 0.4 mg/dL 02/24/2018 Comp Metabolic Aaf909 ALBUMIN 4.5 g/dL 02/24/2018 Comp Metabolic Ofh789 TPRO 6.6 g/dL 02/24/2018 Comp Metabolic Qwv200 GLOB 2.1 g/dL 02/24/2018 Comp Metabolic Frg073 A/G Ratio 2.1 Ratio 02/24/2018 Comp Metabolic Gua463 Osmo 280 mOsmo 02/24/2018 Culture Urine [id number] URINE CULTURE SEE NOTES 02/11/2018 Culture Urine [id number] Continued Results 02/11/2018 Urine Culture Ucult Complete >100,000 col/ml aerobic growth sent to ref lab 02/08/2018 %Hba1C Rjt277 % HbA1c 23838-9 6.8 % 01/12/2018 %Hba1C Hxf304 Gluc Ave 148 mg/dL 01/12/2018 Metabolic Ord15 [...] 89.9 fl 01/11/2018 Cbc With Differential Ord2 [place]% 7.8 % 01/11/2018 Cbc With Differential Ord2 [...] 1.70 K/ul 01/11/2018 Cbc With Differential Ord2 [place] ABS# 0.4 K/ul 01/11/2018 Cbc With Differential Ord2 Eos ABS# 0.1 K/ul 01/11/2018 Cbc With Differential Ord2 Baso ABS# 0.0 K/ul 01/11/2018 Magnesium Ord90 Mag 1.7 mg/dL 01/11/2018 Test(s) Not Perfromed PTK6304 Test(s) Not Performed Test(s) Not Performed. See Below: 09/20/2017 Test(s) Not Perfromed OMC0976 TEST NAME BNP 09/20/2017 Test(s) Not Perfromed [id number] Rejection Reason Patient Refused due to lack of coving diganosis 09/20/2017 Test(s) Not Perfromed AAH3030 COMMENT Dorita Notified 09/20 Test(s) Not Perfromed ZUB1918 Title Processor Miguel Mclaughlin 2017 B Type Natriuretic Peptide Azd2760 B-[employer]ER 889.00 pg/ml 2017 Cbc With Differential Ord2 WBC 5.72 K/ul 09/20/2017 Cbc With Differential Ord2 RBC 3.88 M/ul 09/20/2017 Cbc With Differential Ord2 HGB 11.2 g/dl 09/20/2017 Cbc With Differential Ord2 Neut% 62.4 % 09/20/2017 Cbc With Differential Ord2 HCT 35.0 % 09/20/2017 Cbc With Differential Ord2 Lymph% 29.4 % 09/20/2017 Cbc With Differential Ord2 MCV 90.2 fl 09/20/2017 Cbc With Differential Ord2 [place]% 5.6 % 09/20/2017 Cbc With Differential Ord2 [...] 1.68 K/ul 09/20/2017 Cbc With Differential Ord2 [place] ABS# 0.3 K/ul 09/20/2017 Cbc With Differential Ord2 Eos ABS# 0.1 K/ul 09/20/2017 Cbc With Differential Ord2 Baso ABS# 0.0 K/ul 09/20/2017 %Hba1C Nlc921 % HbA1c 54119-7 7.9 % 09/20/2017 %Hba1C Rnt141 Gluc Ave 180 mg/dL 09/20/2017 Magnesium Ord90 [...] 28.3 pg 07/07/2017 Cbc With Differential Ord2 [place]% 7.9 % 07/07/2017 Cbc With Differential Ord2 [...] 1.34 K/ul 07/07/2017 Cbc With Differential Ord2 [place] ABS# 0.4 K/ul 07/07/2017 Cbc With Differential Ord2 Eos ABS# 0.1 K/ul 07/07/2017 Cbc With Differential Ord2 Baso ABS# 0.0 K/ul 07/07/2017 Comp Metabolic Eoy516 NA 142 mEq/L 07/07/2017 Comp Metabolic Uvg574 K 4.3 mEq/L 07/07/2017 Comp Metabolic Bxz068 CL 105 mEq/L 07/07/2017 Comp Metabolic Ggz022 CO2 28.0 mEq/L 07/07/2017 Comp Metabolic Ydf615 ANION GAP 13 07/07/2017 Comp Metabolic Hqo193 GLUCOSE 197 mg/dL 07/07/2017 Comp Metabolic Lxw712 Creat 1.1 mg/dL 07/07/2017 Comp Metabolic Ton414 eGFR 51 ml/min/1.73m2 07/07/2017 Comp Metabolic Tnx559 BUN 21 mg/dL 07/07/2017 Comp Metabolic Pcm023 B/C Ratio 18.9 Ratio 07/07/2017 Comp Metabolic Zjq280 CALCIUM 8.9 mg/dL 07/07/2017 Comp Metabolic Xik140 ALK PHOS 51 U/L 07/07/2017 Comp Metabolic Enm494 AST(SGOT) 11 U/L 07/07/2017 Comp Metabolic Tmo121 ALT(SGPT) 11 U/L 07/07/2017 Comp Metabolic Ups171 BILI T 0.3 mg/dL 07/07/2017 Comp Metabolic Qyx131 ALBUMIN 4.2 g/dL 07/07/2017 Comp Metabolic Qig729 TPRO 6.0 g/dL 07/07/2017 Comp Metabolic Ipj973 GLOB 1.8 g/dL 07/07/2017 Comp Metabolic Qgl292 A/G Ratio 2.3 Ratio 07/07/2017 Comp Metabolic Zuv750 Osmo 292 mOsmo 07/07/2017 Digoxin Ord9 DIGOXIN 1.3 NG/ML 07/07/2017 Tsh Ord6 TSH (3rd IS) 2.19 uIU/mL 07/07/2017 B Type Natriuretic Peptide Odn9070 B-[employer]ER 801.00 pg/ml 2017 Culture Urine [id number] URINE CULTURE SEE NOTES 04/19/2017 Culture Urine [id number] Continued Results 04/19/2017 Urine Culture Ucult Complete >100,000 col/ml aerobic growth sent to ref lab 04/16/2017 Comp Metabolic Oqw607 NA 140 mEq/L 01/26/2017 Comp Metabolic Rnu020 K 4.6 mEq/L 01/26/2017 Comp Metabolic Srs070 CL 102 mEq/L 01/26/2017 Comp Metabolic Zht776 CO2 28.0 mEq/L 01/26/2017 Comp Metabolic Bve487 ANION GAP 15 01/26/2017 Comp Metabolic Pgh966 GLUCOSE 173 mg/dL 01/26/2017 Comp Metabolic Tzx237 Creat 1.0 mg/dL 01/26/2017 Comp Metabolic Shx574 eGFR 56 ml/min/1.73m2 01/26/2017 Comp Metabolic Xnw237 BUN 23 mg/dL 01/26/2017 Comp Metabolic Eyl675 B/C Ratio 22.5 Ratio 01/26/2017 Comp Metabolic Duo698 CALCIUM 9.4 mg/dL 01/26/2017 Comp Metabolic Dlq344 ALK PHOS 52 U/L 01/26/2017 Comp Metabolic Jpp422 AST(SGOT) 12 U/L 01/26/2017 Comp Metabolic Frl756 ALT(SGPT) 12 U/L 01/26/2017 Comp Metabolic Tqx453 BILI T 0.5 mg/dL 01/26/2017 Comp Metabolic Ksy019 ALBUMIN 4.4 g/dL 01/26/2017 Comp Metabolic Eye362 TPRO 6.5 g/dL 01/26/2017 Comp Metabolic Rhm973 GLOB 2.1 g/dL 01/26/2017 Comp Metabolic Qng739 A/G Ratio 2.1 Ratio 01/26/2017 Comp Metabolic Ccc941 Osmo 287 mOsmo 01/26/2017 Cbc With Differential [...] 29.2 pg 01/26/2017 Cbc With Differential Ord2 [place]% 4.9 % 01/26/2017 Cbc With Differential Ord2 [...] 1.75 K/ul 01/26/2017 Cbc With Differential Ord2 [place] ABS# 0.4 K/ul 01/26/2017 Cbc With Differential Ord2 Eos ABS# 0.1 K/ul 01/26/2017 Cbc With Differential Ord2 Baso ABS# 0.0 K/ul 01/26/2017 %Hba1C Reu768 % HbA1c 18089-3 7.8 % 01/26/2017 %Hba1C Ehu532 Gluc Ave 177 mg/dL 01/26/2017 Lipid Ord30 CHOL 239 mg/dL 01/26/2017 Lipid Ord30 HDL 40.0 mg/dl 01/26/2017 Lipid Ord30 TRIG 325 mg/dL 01/26/2017 Lipid Ord30 LDL 134 mg/dL 01/26/2017 Lipid Ord30 C/HDL 6.0 Ratio 01/26/2017 Free T4 Ylq519 FREE T4 0.95 ng/dL 01/26/2017 Tsh Ord6 [...] Metabolic Ord15 CALCIUM 9.0 mg/dL 09/08/2016 %Hba1C Pyn971 % HbA1c 26970-3 7.5 % 09/08/2016 %Hba1C Fkk843 Gluc Ave 169 mg/dL 09/08/2016 Tsh Ord6 hTSH II 2.64 uIU/mL 03/13/2016 %Hba1C Vzn472 % HbA1c 78693-0 8.2 % 03/13/2016 %Hba1C Mje484 Gluc Ave 189 mg/dL 03/13/2016 Lipid Ord30 CHOL 233 mg/dL 03/13/2016 Lipid Ord30 HDL 46.0 mg/dl 03/13/2016 Lipid Ord30 TRIG 276 mg/dL 03/13/2016 Lipid Ord30 LDL 132 mg/dL 03/13/2016 Lipid Ord30 C/HDL 5.1 Ratio 03/13/2016 Free T4 Pir594 FREE T4 0.94 ng/dL 03/13/2016 Cbc With [...] 29.5 % 03/13/2016 Cbc With Differential Ord2 [place]% 6.1 % 03/13/2016 Cbc With Differential Ord2 [...] 1.63 K/ul 03/13/2016 Cbc With Differential Ord2 [place] ABS# 0.3 K/ul 03/13/2016 Cbc With Differential Ord2 Eos ABS# 0.1 K/ul 03/13/2016 Cbc With Differential Ord2 Baso ABS# 0.0 K/ul 03/13/2016 Comp Metabolic Hsr829 NA 139 mEq/L 03/13/2016 Comp Metabolic Qti617 K 4.3 mEq/L 03/13/2016 Comp Metabolic Cuv628 CL 103 mEq/L 03/13/2016 Comp Metabolic Jdb603 CO2 28.0 mEq/L 03/13/2016 Comp Metabolic Lun659 ANION GAP 12 03/13/2016 Comp Metabolic Swg029 GLUCOSE 200 mg/dL 03/13/2016 Comp Metabolic Ugy811 Creat 0.9 mg/dL 03/13/2016 Comp Metabolic Lqv210 eGFR 69 ml/min/1.73m2 03/13/2016 Comp Metabolic Kpn068 BUN 19 mg/dL 03/13/2016 Comp Metabolic Fzv685 B/C Ratio 22.4 Ratio 03/13/2016 Comp Metabolic Fty373 CALCIUM 9.0 mg/dL 03/13/2016 Comp Metabolic Quj064 ALK PHOS 57 U/L 03/13/2016 Comp Metabolic Zsq579 AST(SGOT) 13 U/L 03/13/2016 Comp Metabolic Uzp760 ALT(SGPT) 16 U/L 03/13/2016 Comp Metabolic Qgh732 BILI T 0.4 mg/dL 03/13/2016 Comp Metabolic Ysn966 ALBUMIN 4.2 g/dL 03/13/2016 Comp Metabolic Gpy798 TPRO 6.3 g/dL 03/13/2016 Comp Metabolic Weh507 GLOB 2.1 g/dL 03/13/2016 Comp Metabolic Fud455 A/G Ratio 2.0 Ratio 03/13/2016 Comp Metabolic Waj412 Osmo 285 mOsmo 03/13/2016 %Hba1C Ahl676 % HbA1c 64750-4 8.3 % 11/14/2015 %Hba1C Aen066 Gluc Ave 192 mg/dL 11/14/2015 Lipid Ord30 CHOL 210 mg/dL 07/19/2015 Lipid Ord30 HDL 43.0 mg/dl 07/19/2015 Lipid Ord30 TRIG 311 mg/dL 07/19/2015 Lipid Ord30 LDL 105 mg/dL 07/19/2015 Lipid Ord30 C/HDL 4.9 Ratio 07/19/2015 %Hba1C Xmy960 % HbA1c 90355-3 7.6 % 07/19/2015 %Hba1C Rlx986 Gluc Ave 171 mg/dL 07/19/2015 Cbc With [...] 28.8 pg 07/19/2015 Cbc With Differential Ord2 [place]% 6.1 % 07/19/2015 Cbc With Differential Ord2 [...] 1.63 K/ul 07/19/2015 Cbc With Differential Ord2 [place] ABS# 0.3 K/ul 07/19/2015 Cbc With Differential Ord2 Eos ABS# 0.1 K/ul 07/19/2015 Cbc With Differential Ord2 Baso ABS# 0.0 K/ul 07/19/2015 Cbc With Differential Ord2 New Analyzer Notice Please note new ref ranges starting 03-27-2015 due to implemntation of new five part differential hematolgy analyzer. 07/19/2015 Comp Metabolic Itv677 NA 138 mEq/L 07/19/2015 Comp Metabolic Ccz890 K 4.3 mEq/L 07/19/2015 Comp Metabolic Vuj564 CL 100 mEq/L 07/19/2015 Comp Metabolic Ymo251 CO2 33.0 mEq/L 07/19/2015 Comp Metabolic Amu550 ANION GAP 9 07/19/2015 Comp Metabolic Auy261 GLUCOSE 149 mg/dL 07/19/2015 Comp Metabolic Noa995 Creat 0.9 mg/dL 07/19/2015 Comp Metabolic Xbc255 eGFR 62 ml/min/1.73m2 07/19/2015 Comp Metabolic Wjy827 BUN 19 mg/dL 07/19/2015 Comp Metabolic Kcr367 B/C Ratio 20.2 Ratio 07/19/2015 Comp Metabolic Oza048 CALCIUM 9.5 mg/dL 07/19/2015 Comp Metabolic Vbr727 ALK PHOS 52 U/L 07/19/2015 Comp Metabolic Xia779 AST(SGOT) 15 U/L 07/19/2015 Comp Metabolic Fbt637 ALT(SGPT) 14 U/L 07/19/2015 Comp Metabolic Tep667 BILI T 0.5 mg/dL 07/19/2015 Comp Metabolic Nxa324 ALBUMIN 4.4 g/dL 07/19/2015 Comp Metabolic Nrv559 TPRO 6.4 g/dL 07/19/2015 Comp Metabolic Tbi631 GLOB 2.0 g/dL 07/19/2015 Comp Metabolic Oyz972 A/G Ratio 2.2 Ratio 07/19/2015 Comp Metabolic Nmm463 Osmo 281 mOsmo 07/19/2015 Free T4 Gsm869 FREE T4 0.92 ng/dL 07/19/2015 Tsh Ord6 hTSH II 1.95 uIU/mL 07/19/2015 Microalbumin Emz092 MicroAlb 0.4 mg/dL 07/19/2015 Comp Metabolic Izt380 NA 137 mEq/L 12/04/2014 Comp Metabolic Kah967 K 4.0 mEq/L 12/04/2014 Comp Metabolic Cam298 CL 100 mEq/L 12/04/2014 Comp Metabolic Zqp366 CO2 29.0 mEq/L 12/04/2014 Comp Metabolic Kkf759 ANION GAP 12 12/04/2014 Comp Metabolic Eor694 GLUCOSE 171 mg/dL 12/04/2014 Comp Metabolic Ubs624 Creat 1.0 mg/dL 12/04/2014 Comp Metabolic Yby659 eGFR 60 ml/min/1.73m2 12/04/2014 Comp Metabolic Jvp213 BUN 25 mg/dL 12/04/2014 Comp Metabolic Bso890 B/C Ratio 25.8 Ratio 12/04/2014 Comp Metabolic Jad000 CALCIUM 9.4 mg/dL 12/04/2014 Comp Metabolic Wbz557 ALK PHOS 60 U/L 12/04/2014 Comp Metabolic Kbm639 AST(SGOT) 13 U/L 12/04/2014 Comp Metabolic Cdn811 ALT(SGPT) 17 U/L 12/04/2014 Comp Metabolic Nwk942 BILI T 0.4 mg/dL 12/04/2014 Comp Metabolic Xxs091 ALBUMIN 4.4 g/dL 12/04/2014 Comp Metabolic Rkw767 TPRO 6.9 g/dL 12/04/2014 Comp Metabolic Laz728 GLOB 2.5 g/dL 12/04/2014 Comp Metabolic Lcn195 A/G Ratio 1.8 Ratio 12/04/2014 Comp Metabolic Eiy789 Osmo 282 mOsmo 12/04/2014 Tsh Ord6 hTSH II 1.78 uIU/mL 12/04/2014 %Hba1C Otg955 % HbA1c 19223-2 8.3 % 12/04/2014 %Hba1C Hgh939 Gluc Ave 192 mg/dL 12/04/2014 Free T4 Qyj203 FREE T4 0.85 ng/dL 12/04/2014 Lipid Ord30 [...] III/ 06/03/2017 None Full Exam - General 1995 Constitutional general appearance Overall: well developed 05/12/2017 None Full Exam - General 1995 Constitutional general appearance Overall: in no acute distress 05/12/2017 None Full Exam - General 1995 Constitutional general appearance Overall: well nourished 05/12/2017 None Full Exam - General 1995 Eyes conjunctiva /eyelids Overall: conjunctiva clear 05/12/2017 None Full Exam - General 1995 Eyes conjunctiva /eyelids Overall: cornea clear 05/12/2017 None Full Exam - General 1995 Eyes conjunctiva /eyelids Overall: eyelids normal 05/12/2017 [...] Codes Date URINALYSIS NONAUTO W/O SCOPE CPT-4: 15358 02/24/2018 URINALYSIS NONAUTO W/O SCOPE CPT-4: 61666 02/07/2018 ADMIN INFLUENZA VIRUS VAC CPT-4: G0008 11/25/2017 FLU VAC NO PRSV 4 ANABELLE 3 YRS+ CPT-4: 53014 11/25/2017 GLUC MONITOR CONT PHYS I&R CPT-4: 61497 10/26/2017 GLUCOSE MONITORING CONT CPT-4: 60387 10/11/2017 URINALYSIS NONAUTO W/O SCOPE CPT-4: 99904 04/15/2017 FLU VAC NO PRSV 4 ANABELLE 3 YRS+ CPT-4: 17510 12/17/2016 ADMIN INFLUENZA VIRUS VAC CPT-4: G0008 12/17/2016 FLU VACC PRSV FREE INC ANTIG Formatting Model/CDA Sections, Assigned to/Nery Daniels CPT-4: 53440Hriligu 11/14/2015 ADMIN INFLUENZA VIRUS VAC CPT-4: G0008 11/14/2015 ADMIN INFLUENZA VIRUS VAC Formatting Model/CDA Sections, Assigned to/Nery Daniels CPT-4: D8445Nlgvgax 12/04/2014 FLU VACC 4 ANABELLE 3 YRS PLUS IM SNOMED CT: [id number] CPT-4: 66124 12/04/2014 Vital Signs Date Vital 02/24/2018 Blood Pressure 1: 130/62 Code : 8480-6 BMI: 28.9 Code : 53773-0 Heart Rate 1 : 57 bpm Height: 5' SpO2: 99% Weight: 148 lbs 01/27/2018 Blood Pressure 1: 142/70 Code : 8480-6 BMI: 29.5 Code : 72777-6 Heart Rate 1 : 61 bpm Height: 5' SpO2: 99% Weight: 151 lbs 11/25/2017 Blood Pressure 1: 148/72 Code : 8480-6 BMI: 30.9 Code : 92892-8 Heart Rate 1 : 62 bpm Height: 5' SpO2: 98% Weight: 158 lbs 10/26/2017 Blood Pressure 1: 156/74 Code : 8480-6 BMI: 31.2 Code : 73409-7 Heart Rate 1 : 71 bpm Height: 5' SpO2: 98% Weight: 160 lbs 10/11/2017 Blood Pressure 1: 128/70 Code : 8480-6 BMI: 30.9 Code : 95793-8 Heart Rate 1 : 70 bpm Height: 5' SpO2: 95% Weight: 158 lbs 09/22/2017 Blood Pressure 1: 110/52 Code : 8480-6 BMI: 30.9 Code : 02200-1 Heart Rate 1 : 72 bpm Height: 5' SpO2: 99% Weight: 158 lbs 07/06/2017 Blood Pressure 1: 120/85 Code : 8480-6 BMI: 31.4 Code : 82181-2 Heart Rate 1 : 74 bpm Height: 5' SpO2: 92% Weight: 161 lbs 06/03/2017 Blood Pressure 1: 120/62 Code : 8480-6 BMI: 31.1 Code : 98831-4 Heart Rate 1 : 73 bpm Height: 5' SpO2: 99% Weight: 159 lbs 05/12/2017 Blood Pressure 1: 132/68 Code : 8480-6 BMI: 32.4 Code : 43503-6 Heart Rate 1 : 95 bpm Height: 5' SpO2: 97% Weight: 166 lbs 04/15/2017 Blood Pressure 1: 128/84 Code : 8480-6 BMI: 32.4 Code : 03148-7 Heart Rate 1 : 62 bpm Height: 5' SpO2: 97% Weight: 166 lbs 03/19/2017 Blood Pressure 1: 112/60 Code : 8480-6 BMI: 32.0 Code : 48903-3 Height: 5' Weight: 164 lbs 02/03/2017 Blood Pressure 1: 128/76 Code : 8480-6 BMI: 33.4 Code : 54921-1 Heart Rate 1 : 91 bpm Height: 5' SpO2: 99% Weight: 171 lbs 01/07/2017 Blood Pressure 1: 12674 Code : 8480-6 BMI: 34.2 Code : 22061-2 Heart Rate 1 : 83 bpm Height: 5' SpO2: 97% Weight: 175 lbs 12/17/2016 Blood Pressure 1: 122/72 Code : 8480-6 BMI: 34.0 Code : 83510-5 Heart Rate 1 : 78 bpm Height: 5' SpO2: 97% Weight: 174 lbs 09/14/2016 Blood Pressure 1: 128/86 Code : 8480-6 BMI: 33.8 Code : 48381-7 Heart Rate 1 : 88 bpm Height: 5' SpO2: 96% Weight: 173 lbs 06/18/2016 Blood Pressure 1: 12274 Code : 8480-6 BMI: 34.8 Code : 39811-9 Heart Rate 1 : 78 bpm Height: 5' SpO2: 98% Weight: 178 lbs 04/16/2016 Blood Pressure 1: 134/68 Code : 8480-6 BMI: 35.0 Code : 36824-7 Heart Rate 1 : 67 bpm Height: 5' SpO2: 97% Weight: 179 lbs 03/19/2016 Blood Pressure 1: 132/74 Code : 8480-6 BMI: 34.6 Code : 78740-5 Heart Rate 1 : 74 bpm Height: 5' SpO2: 97% Weight: 177 lbs 11/14/2015 Blood Pressure 1: 132/70 Code : 8480-6 BMI: 35.2 Code : 40142-0 Heart Rate 1 : 68 bpm Height: 5' Weight: 180 lbs 08/14/2015 Blood Pressure 1: 122/74 Code : 8480-6 BMI: 33.8 Code : 79456-3 Heart Rate 1 : 73 bpm Height: 5' SpO2: 93% Weight: 173 lbs 07/17/2015 Blood Pressure 1: 138/78 Code : 8480-6 BMI: 34.0 Code : 07344-3 Heart Rate 1 : 85 bpm Height: 5' SpO2: 97% Weight: 174 lbs 03/25/2015 Blood Pressure 1: 130/78 Code : 8480-6 BMI: 33.2 Code : 28875-3 Heart Rate 1 : 77 bpm Height: 5' SpO2: 97% Weight: 170 lbs 12/04/2014 Blood Pressure 1: 120/74 Code : 8480-6 BMI: 35.4 Code : 74101-4 Heart Rate 1 : 67 bpm Height: 5' SpO2: 94% Weight: 181 lbs 5 oz 08/14/2014 Blood Pressure 1: 132/68 Code : 8480-6 BMI: 32.1 Code : 06182-4 Heart Rate 1 : 62 bpm Height: 5'3" SpO2: 97% Weight: 184 lbs Functional Status No Functional Status data History of Present Illness Symptom Name Status Result Effective Date Notes Quality insulin dependent 02/24/2018 None Quality chronic [...] data Encounters Encounter Performer Location Codes Date ([id number]) 54756 EST. PATIENT, LEVEL IV Diagnosis: Low back pain[ICD10: M54.5] Diagnosis: Dysuria[ICD10: R30.0] Diagnosis: Type 2 diabetes mellitus with hyperglycemia[ICD10: E11.65] Claudia Nicole MD, [facility] CPT-4: 37072 02/24/2018 ([id number]) 54381 EST. PATIENT, LEVEL IV Diagnosis: Type 2 diabetes mellitus with hyperglycemia[ICD10: E11.65] Diagnosis: Essential (primary) hypertension[ICD10: I10] Diagnosis: Major depressive disorder, recurrent, mild[ICD10: F33.0] Diagnosis: Generalized anxiety disorder[ICD10: F41.1] Claudia Nicole MD, [facility] CPT-4: 89996 01/27/2018 ([id number]) 34317 EST. PATIENT, LEVEL IV Diagnosis: Type 2 diabetes mellitus with hyperglycemia[ICD10: E11.65] Diagnosis: Essential (primary) hypertension[ICD10: I10] Diagnosis: Encounter for immunization[ICD10: Z23] Diagnosis: Carpal tunnel syndrome, left upper limb[ICD10: G56.02] Claudia Nicole MD, [facility] CPT-4: 60979 11/25/2017 ([id number] 46669 EST. PATIENT, LEVEL III Diagnosis: Type 2 diabetes mellitus with hyperglycemia[ICD10: E11.65] Claudia Nicole MD, [facility] CPT-4: 00780 10/26/2017 ([id number]) Miscellaneous no charge Diagnosis: Type 2 diabetes mellitus with hyperglycemia[ICD10: E11.65] Claudia Nicole MD, [facility] CPT-4: 18535 10/18/2017 ([id number]) 47075 EST. 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 PATIENT, LEVEL IV Diagnosis: Type 2 diabetes mellitus with hyperglycemia[ICD10: E11.65] Diagnosis: Paroxysmal atrial fibrillation[ICD10: I48.0] Diagnosis: Essential (primary) hypertension[ICD10: I10] Mila Nicole MD, [facility] CPT-4: 10914 07/06/2017 ([id number]) 09125 EST. PATIENT, LEVEL IV Diagnosis: Essential (primary) hypertension[ICD10: I10] Diagnosis: Type 2 diabetes mellitus with hyperglycemia[ICD10: E11.65] Diagnosis: Paroxysmal atrial fibrillation[ICD10: I48.0] Claudia Nicole MD, [facility] CPT-4: 14429 06/03/2017 09717 EST. PATIENT, LEVEL III Diagnosis: Generalized anxiety disorder[ICD10: F41.1] Diagnosis: Major depressive disorder, recurrent, moderate[ICD10: F33.1] Diagnosis: Paroxysmal tachycardia, unspecified[ICD10: I47.9] Gardenia Nicole MD, [facility] CPT-4: 75276 05/12/2017 ([id number]) 73819 EST. PATIENT, LEVEL IV Diagnosis: Essential (primary) hypertension[ICD10: I10] Diagnosis: Cough[ICD10: R05] Diagnosis: Dysuria[ICD10: R30.0] Mila Nicole MD, [facility] CPT-4: 16487 04/15/2017 ([id number]) 05611 EST. PATIENT, LEVEL IV Diagnosis: Type 2 diabetes mellitus with hyperglycemia[ICD10: E11.65] Diagnosis: Essential (primary) hypertension[ICD10: I10] Mila Nicole MD, [facility] CPT-4: 87096 03/19/2017 ([id number]) 78145 EST. PATIENT, LEVEL III Diagnosis: Type 2 diabetes mellitus with hyperglycemia[ICD10: E11.65] Mila Nicole MD , [facility] CPT-4: 76739 02/03/2017 89385 EST. PATIENT, LEVEL IV Diagnosis: Generalized anxiety disorder[ICD10: F41.1] Diagnosis: Type 2 diabetes mellitus with hyperglycemia[ICD10: E11.65] Diagnosis: Essential (primary) hypertension[ICD10: I10] Gardenia Nicole MD, [facility] CPT-4: 51635 01/07/2017 ([id number]) 39669 EST. PATIENT, LEVEL III Diagnosis: Type 2 diabetes mellitus with hyperglycemia[ICD10: E11.65] Diagnosis: Encounter for immunization[ICD10: Z23] Mila Nicole MD, [facility] CPT-4: 91662 12/17/2016 ([id number]) 03649 EST. PATIENT, LEVEL IV Diagnosis: Type 2 diabetes mellitus with hyperglycemia[ICD10: E11.65] Diagnosis: Essential (primary) hypertension[ICD10: I10] Diagnosis: Major depressive disorder, recurrent, mild[ICD10: F33.0] Mila Nicole MD, [facility] CPT-4: 31688 09/14/2016 ([id number]) 17043 EST. 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 PATIENT, LEVEL IV Diagnosis: Type 2 diabetes mellitus with hyperglycemia[ICD10: E11.65] Diagnosis: Essential (primary) hypertension[ICD10: I10] Mila Nicole MD, [facility] CPT-4: 01517 04/16/2016 ([id number]) 92938 EST. 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 PATIENT, LEVEL IV Diagnosis: Type 2 diabetes mellitus with hyperglycemia[ICD10: E11.65] Diagnosis: Encounter for immunization[ICD10: Z23] Diagnosis: Essential (primary) hypertension[ICD10: I10] [facility] CPT-4: 02412 11/14/2015 ([id number]) 80793 EST. PATIENT, LEVEL IV Diagnosis: Type 2 diabetes mellitus with hyperglycemia[ICD10: E11.65] Diagnosis: Essential (primary) hypertension[ICD10: I10] Diagnosis: Low back pain[ICD10: M54.5] [facility] CPT- 4: 83165 08/14/2015 ([id number]) 00090 EST. PATIENT, LEVEL IV Diagnosis: Type 2 diabetes mellitus with hyperglycemia[ICD10: E11.65] Diagnosis: Essential (primary) hypertension[ICD10: I10] Diagnosis: Hypothyroidism, unspecified[ICD10: E03.9] Mila Nicole MD, [facility] CPT-4: 43766 07/17/2015 ([id number]) 41059 EST. PATIENT, LEVEL IV Diagnosis: Essential (primary) hypertension[ICD10: I10] Diagnosis: Type 2 diabetes mellitus with hyperglycemia[ICD10: E11.65] Diagnosis: Headache[ICD10: R51] Gardenia Nicole MD, [facility] CPT-4: 52108 03/25/2015 ([id number]) 86250 EST. PATIENT, LEVEL IV Diagnosis: ESSENTIAL HYPERTENSION[ICD9: 401.9] Diagnosis: DIABETES TYPE II[ICD9: 250.00] Diagnosis: Aortic stenosis[ICD9: 424.1] [facility] CPT- 4: 52327 12/04/2014 ([id number]) OFFICE VISIT, NEW - LEVEL 4 Diagnosis: ESSENTIAL HYPERTENSION[ICD9: 401.9] Diagnosis: Diabetes mellitus out of control[ICD9: 250.02] Mila Nicole MD, [facility] CPT-4: 68883 08/14/2014 Plan of Care Planned Activity Notes Codes Status Date Visit Plan: Low back pain-xray lumbar spine Dysuria- improved-will culture urine [id number] changes today 02/24/2018 Appointment: Claudia Pruitt WPtel: [address] [place], [place] [phone] (15 min) Moderate 02/24/2018 Patient Education: Patient [...] current medications. 01/27/2018 Appointment: Claudia Pruitt WPtel: [facility][note 3]7 [facility] (15 min) Moderate 01/27/2018 Patient Education: Patient [...] any worse 11/25/2017 Appointment: Claudia Pruitt WPtel: [phone] (15 min) Moderate 11/25/2017 Patient Education: Patient Medication Summary Completed 11/25/2017 [facility]ment[phone] [facility] (15 min) Moderate 10/28/2017 Visit Plan: Diabetes [...] to appt. 10/26/2017 Appointment: Claudia Pruitt WPtel: [phone] (15 min) Moderate 10/26/2017 Patient Education: [...] of plan. 10/11/2017 Appointment: Claudia Pruitt WPtel: [phone] (30 min) Complex 10/11/2017 Patient Education: Patient [...] Summary Completed 09/22/2017 Appointment: Mila Nicole WPtel: [phone] [facility] (15 min) Moderate 09/13/2017 Appointment: Mila Nicole WPtel: [phone] [facility] [place] (15 min) Moderate 09/07/2017 Visit Plan: [...] becoming uncontrolled. 07/06/2017 Appointment: Mila Nicole WPtel: [phone] [facility] [place] (15 min) Moderate 07/06/2017 Patient Education: Patient Medication Summary Completed 07/06/2017 [facility]ment: [facility] [phone] [facility] (15 min) Moderate 06/07/2017 Visit Plan: Hypertension [...] less controlled. 06/03/2017 Appointment: [facility] [phone] [phone] (30 min) Complex 06/03/2017 Patient Education: Patient [...] plan 05/12/2017 Appointment: Garden[facility] Shah [facility] [phone] [facility] [place] (30 min) Complex 05/12/2017 Patient Education: [...] medication. 04/15/2017 App[facility]ment: [facility] [phone] [facility] (15 min) Moderate 04/15/2017 Patient Education: [...] daily. 03/19/2017 Appointment: [facility] [phone] [facility] [place] (15 min) Moderate 03/19/2017 Patient Education: Patient Medication Summary Completed 03/19/2017 Appointment: Mila Nicole WPtel: [phone] [facility] [place] (15 min) Moderate 02/24/2017 Visit Plan: Diabetes [...] at HS 02/03/2017 Appointment: Mila Nicole WPtel: [phone] [facility] [place] (15 min) Moderate 02/03/2017 Patient Education: [...] call for acute concerns. 01/07/2017 Appointment: [facility] [phone] [facility] (30 min) Complex 01/07/2017 Patient Education: [...] to allow for greater blood glucose control. [id number], 02/2018 junior nordisk 12/17/2016 Appointment: Mila Nicole WPtel: [phone] [facility] (15 min) Moderate 12/17/2016 Patient Education: Patient Medication Summary Completed 12/17/2016 Patient Education: Obesity Completed 12/17/2016 App[facility]ment: [facility] [phone] [facility] (15 min) Moderate 12/14/2016 Visit Plan: Diabetes [...] medications. 09/14/2016 Appointment: [facility] [phone] [facility] (15 min) Moderate 09/14/2016 Patient Education: Patient [...] home. 06/18/2016 Appointment: Mila Nicole WPtel: [phone] [facility] (15 min) Moderate 06/18/2016 Patient Education: Patient [...] at home. 04/16/2016 Appointment: [facility] [phone] [facility] [place] (15 min) Moderate 04/16/2016 Patient [...] with gabapentin 03/19/2016 Appointment: [facility] [phone] [facility] (15 min) Moderate 03/19/2016 Patient Education: Patient [...] at home. 11/14/2015 Appointment: [facility] [phone] [facility] [place] (15 min) Moderate 11/14/2015 Patient Education: [...] check Hgba1c 07/17/2015 Appointment: Mila Nicole WPtel: [address] [place] [address] (15 min) Moderate 07/17/2015 Patient Education: Patient [...] Hypertension Completed 03/25/2015 Appointment: Mila Nicole WPtel: [address] [place] [address] (15 min) Moderate 01/14/2015 Visit Plan: Diabetes [...] of control. 12/04/2014 Appointment: Mila Nicole WPtel: [phone] [facility] (15 min) Moderate 12/04/2014 Patient Education: Patient [...] glucose control. 08/14/2014 Appointment: [facility] [phone] [facility] [place] ([place] New Patient 08/14/2014 Patient [...] to allow for greater blood glucose control. [id number], 02/2018 junior nordisk CHECK LABS AND UA XRAY LUMBAR . Low back pain-xray lumbar spine Dysuria- improved-will culture urine [id number] changes today . Hypertension - well controlled [...]
--- NOTE | 2018-03-30 10:31 | History & Physicial ---
History of Present Illness History of Present Illness Reason for visit/HPI To undergo robotic assisted cholecystectomy with possible cholangiogram, addressing gallstones Date of Admission 03/30/18 Date Seen by a Provider: Mar 30, 2018 Time Seen by a Provider: 10:30 I consulted on this patient on 03/30/18 10:29 Attending Physician Rajeev Lanza MD Admitting Physician Mila Nicole MD Consult Allergies and Home Medications Allergies Coded Allergies: canagliflozin (Verified Allergy, Severe, LIGHT HEADED/HEADACHES/UTI/FELT LIKE SHE WOULD PASS OUT, 02/18/17) liraglutide (Verified Allergy, Severe, RAPID HEART RATE/HEADACHE/DIZZINESS , 02/18/17) Owazgxq-Szt-Dtn Reductase Inhibitor (Verified Adverse Reaction, Severe, MUSCLE PAIN, 02/18/17) Home Medications Acetaminophen 500 Mg Tablet, 500-1,000 MG PO Q4H PRN for PAIN-MILD, (Reported) Acetaminophen/Diphenhydramine 1 Each Tablet, 1 TAB PO HS, (Reported) Apixaban 2.5 Mg Tablet, 2.5 MG PO BID, (Reported) Aspirin 81 Mg Tablet.dr, 81 MG PO DAILY, (Reported) Diclofenac Sodium 100 Gm Gel..gram., TP BID PRN for JOINT PAIN, (Reported) Digoxin 250 Mcg Tablet, 125 MCG PO DAILY, (Reported) TAKES 1/2 (250 MCG) TABLET Escitalopram Oxalate 10 Mg Tablet, 10 MG PO DAILY PRN for DEPRESSION, (Reported) Ezetimibe 10 Mg Tablet, 10 MG PO HS, (Reported) Fluticasone Propionate 16 Gm [place].susp, 1 SPRAY NS BID PRN for ALLERGIES, ( Reported) Furosemide 40 Mg Tablet, 40 MG PO DAILY, (Reported) Gabapentin 600 Mg Tablet, 600 MG PO TID PRN for nerve pain, (Reported) Insulin Glargine,Hum.rec.anlog 100 Unit/1 Ml Insuln.pen, 20 UNITS SC DAILY, ( Reported) Levothyroxine Sodium 50 Mcg Tablet, 50 MCG PO DAILY, (Reported) Metformin HCl 500 Mg Tablet, 500 MG PO HS, (Reported) Metformin HCl 500 Mg Tablet, 750 MG PO 0700,1200, (Reported) TAKES 1 & 1/2 (500MG) TABLETS Metoprolol Succinate 100 Mg Tab.er.24h, 200 MG PO DAILY, (Reported) take 2 (100mg) tabs Nitroglycerin 0.4 Mg Tab.subl, 0.4 MG SL UD PRN for CHEST PAIN, (Reported) [place] 3 Polyunsat Fatty Acids 1,000 Mg Cap, 1,000 MG PO DAILY, (Reported) Pantoprazole Sodium 40 Mg Tablet.dr, 40 MG PO DAILY, (Reported) Potassium Chloride 20 Meq Tablet.er, 20 MEQ PO DAILY, (Reported) Sacubitril/Valsartan 1 Each Tablet, 1 TAB PO BID, (Reported) Patient Home Medication List Home Medication List Reviewed: Yes Past Tcxduao-Wefbls-Jfpxjk Hx Patient Social History Marrital Status: Employed/Student: retired Alcohol Use: Occasionally Uses Recreational Drug Use: No Smoking Status: Never a Smoker 2nd Hand Smoke Exposure: No Recent Foreign Travel: No Contact w/other who traveled: No Recent Hopitalizations: No Recent Infectious Disease Expo: No Immunizations Up To Date Tetanus Booster (TDap): Unknown Pediatric: No Date of Pneumonia Vaccine: Feb 14, 2017 Date of Influenza Vaccine: Nov 15, 2017 Seasonal Allergies Seasonal Allergies: Yes Surgeries Yes (bilat TKR, bilat carpal tunnel, R ROTATOR CUFF) Bladder Surgery, Coronary Stent, Hysterectomy, Orthopedic, Tonsillectomy Respiratory No Currently Using CPAP: No Currently Using BIPAP: No Cardiovascular Yes (aortic stenosis, carotid stenosis, cardiac stent) Coronary Artery Disease, High Cholesterol, Hypertension, Peripheral Vascular, Valvular Heart Disease Neurological Yes Genitourinary No UTI-Chronic Gastrointestinal Yes Hiatal Hernia, Gall Bladder Disease Musculoskeletal Yes Arthritis, Chronic Back Pain Endocrine History of Endocrine Disorders: Yes Endocrine Disorders: Diabetes, Non-Insulin dep HEENT History of HEENT Disorders: No Loss of Vision: Denies Hearing Impairment: Denies Cancer No Psychosocial History of Psychiatric Problem: Yes Behavioral Health Disorders: Anxiety, Depression Integumentary History of Skin or Integumenta: No Blood Transfusions History of Blood Disorders: No Family Medical History Significant Family History: Heart Disease, Hypertension Family Hx: Cardiovascular disease Congenital heart disease Diabetes mellitus Hypertension Review of Systems Constitutional: see HPI EENTM: no symptoms reported Respiratory: no symptoms reported Cardiovascular: no symptoms reported Genitourinary: no symptoms reported Musculoskeletal: back pain Skin: no symptoms reported Psychiatric/Neurological: No Symptoms Reported Physical Exam Vital Signs Vital Signs - First Documented 03/30/18 09:05 Temp 97.5 Pulse 69 Resp 16 B/P (MAP) 141/60 (87) Pulse Ox 100 O2 Delivery Room Air Capillary Refill : Height, Weight, BMI Height: 5'3.00" Weight: 144lbs. 0.0oz. 65.512971pn; 25.5 BMI Method:Stated General Appearance: Mild Distress Neck: Normal Inspection Respiratory: Lungs Clear Cardiovascular: Regular Rate, Rhythm Gastrointestinal: Non Tender, Soft Extremity: Normal Inspection Neurologic/Psychiatric: Alert, Oriented x3 Skin: Warm/Dry Assessment/Plan Assessment and Plan Lady with gallstones, for cholecystectomy using robotic assistance Admission Diagnosis Admission Status: Other (Same Day Surgery) RAJEEV LANZA MD Mar 30, 2018 10:31
--- NOTE | 2018-03-30 10:32 | Progress Note-Pre Operative ---
Pre-Operative Progress Note H&P Reviewed The H&P was reviewed, patient examined and no changes noted. Date Seen by Provider: Mar 30, 2018 Time Seen by Provider: 10: Date H&P Reviewed: Mar 30, 2018 Time H&P Reviewed: 10:31 Pre-Operative Diagnosis: Gallstones RAJEEV CAMILO MD Mar 30, 2018 10:32
--- OUTSIDE RECORDS SUMMARY | 2018-03-30 10:33 | XMS REPORT | CCD ---
Author Author [facility] Organization [facility] Address [address] [place] [address] Phone Care Team Providers Care Core Sucker Name Role Phone PP Unavailable CCM Unavailable Summary Purpose Interface Exchange Insurance Providers Payer name Policy type / Coverage type Covered green party ID Effective Begin Date Effective End Date WPS Medicare Part B Medicare Part B [id number] Unknown AARP Medicare Part B [id number] Unknown Family history Mother Diagnosis Age At [...] Unknown 3 08/14/[address]: 871372738 Never smoker 08/14/[address]: 451188887 Never drinks alcohol 08/14/2014 Allergies, Adverse Reactions, Alerts Substance Reaction Codes Entered Date Inactivated Date Status * OTHER REACTION - SEE ANSWER BOX Invokana, Victoza Unknown 07/2017 No Inactive Date Active Paxil has blurred vision RxNorm: 082017 08/14/2014 No Inactive Date Active Lipitor RxNorm: 43856 08/14/2014 No Inactive Date Active Past Medical [...] Start Date Stop Date Status Fill Instructions fluticasone 50 mcg/actuation nasal spray,suspension RxNorm: 5808600 INSTILL ONE SPRAY IN EACH NOSTRILTWICE A DAY 03/16/2018 10/11/2018 Active Generic For:FLONASE SPR 0.05% 03/16/2018 8:50:59 AM Keflex 500 mg capsule RxNorm: 497753 1 Capsule(s) PO TID 201702/10/2018 Inactive Keflex 500 mg capsule RxNorm: 135848 1 Capsule(s) PO TID 201702/20/2018 Inactive metoprolol succinate ER 200 mg tablet,extended release 24 hr RxNorm: 416565 1 Tablet(s) PO daily 01/27/2018 No Stop Date Active Eliquis 2.5 mg tablet RxNorm: 6211358 1 Tablet(s) PO BID 2017 No Stop Date Active digoxin 125 mcg tablet RxNorm: 807132 1 Tablet(s) PO daily No Stop Date Active Basaglar KwikPen U-100 Insulin 100 unit/mL (3 mL) subcutaneous RxNorm: 3170176 20 Unit(s) SQ daily 11/25/201705/23 Active UPDATE RX metformin 500 mg tablet RxNorm: 512225 1 Tablet(s) PO UD 1.5 in morning, noon and 1 at bedtime 10/28/2017 10/22/2018 Active Basaglar KwikPen U-100 Insulin 100 unit/mL (3 mL) subcutaneous RxNorm: 5235670 18 Unit(s) SQ daily 10/26/201711/24 Inactive UPDATE RX levothyroxine 50 mcg tablet RxNorm: 006474 TAKE 1 TABLET BY MOUTH ONCE DAILY 10/15/2017 06/11/2018 Active Generic For:SYNTHROID 50MCG TAB 10/15/2017 9:59:00 AM escitalopram 10 mg tablet RxNorm: 737864 1 Tablet(s) PO QPM 01/201809/16/2018 Active Generic For:LEXAPRO 5MG 01/07/2017 9:05:43 AM Basaglar KwikPen U-100 Insulin 100 unit/mL (3 mL) subcutaneous RxNorm: 4553620 15 Unit(s) SQ daily 09/22/201710/25 Inactive potassium chloride ER 20 mEq tablet,extended release RxNorm: 705697 1 Tablet(s) PO daily 06/22/2017 01/17/2018 Inactive Lantus Solostar U-100 Insulin 100 unit/mL (3 mL) subcutaneous pen RxNorm: 473860 10 Unit(s) SQ daily 06/08/2017 Inactive Basaglar KwikPen U-100 Insulin 100 unit/mL (3 mL) subcutaneous RxNorm: 2726145 10 Unit(s) SQ daily 06/08/201706/07 Inactive Basaglar KwikPen U-100 Insulin 100 unit/mL (3 mL) subcutaneous RxNorm: 4604798 10 Unit(s) SQ daily 06/08/201709/21 Inactive Lexapro 5 mg tablet RxNorm: 327748 1 Tablet(s) PO daily 201711/27/2017 Inactive Lexapro 5 mg tablet RxNorm: 129531 1 Tablet(s) PO daily 201705/31/2017 Inactive bisoprolol 5 mg-hydrochlorothiazide 6.25 mg tablet RxNorm: 509990 1 Tablet(s) PO BID 05/04/2017 06/02/2017 Inactive Keflex 500 mg capsule RxNorm: 338794 1 Capsule(s) PO QID 201704/21/2017 Inactive Lantus Solostar 100 unit/mL (3 mL) subcutaneous insulin pen RxNorm: 227464 10 Unit(s) SQ daily 02/03/2017 06/07/2017 Inactive levothyroxine 50 mcg tablet RxNorm: 258774 TAKE 1 TABLET BY MOUTH ONCE DAILY 02/01/2017 09/28/2017 Inactive Generic For:SYNTHROID 50MCG TAB 02/01/2017 9:20:59 AM gabapentin 600 mg tablet RxNorm: 184872 1 Capsule(s) PO TID 01/21/2018 Inactive Lexapro 5 mg tablet RxNorm: 175569 TAKE 1 TABLET BY MOUTH AT BEDTIME 01/07/2017 09/21/2017 Inactive Generic For:LEXAPRO 5MG 01/07/2017 9:05:43 AM Victoza 2-Dariusz 0.6 mg/0.1 mL (18 mg/3 mL) subcutaneous pen injector RxNorm: 722814 1.8 Milligram(s) SQ daily 12/17/201602/07 Inactive Victoza 3-Dariusz 0.6 mg/0.1 mL (18 mg/3 mL) subcutaneous pen injector RxNorm: 893289 Milligram(s) SQ 12/17/2016 02/07/2017 Inactive Zetia 10 mg tablet RxNorm: 528585 1 Tablet(s) PO daily 201611/11/2017 Inactive fluticasone 50 mcg/actuation nasal spray,suspension RxNorm: 5809040 [place] NASAL ONE SPRAY IN EACH NOSTRIL TWICE DAILY 09/28/2016 04/25/2017 Inactive Victoza 2-Dariusz 0.6 mg/0.1 mL (18 mg/3 mL) subcutaneous pen injector RxNorm: 337106 1.2 Milligram(s) SQ daily 09/14/201612/16 Inactive Lexapro 5 mg tablet RxNorm: 737694 1 Tablet(s) PO QHS 201612/12/2016 Inactive metformin 500 mg tablet RxNorm: 605173 1 Tablet(s) PO UD 1.5 in morning, noon and 1 at bedtime 09/08/2016 09/02/2017 Inactive glimepiride 4 mg tablet RxNorm: 349236 TAKE 1 TABLET BY MOUTH ONCE DAILY 07/31/2016 09/13/2016 Inactive Generic For:*AMARYL 4MG 07/31/2016 9:02:38 AM Victoza 2-Dariusz 0.6 mg/0.1 mL (18 mg/3 mL) subcutaneous pen injector RxNorm: 485985 1.2 Milligram(s) SQ daily 05/18/201609/13 Inactive Victoza 2-Dariusz 0.6 mg/0.1 mL (18 mg/3 mL) subcutaneous pen injector RxNorm: 488941 1.2 Milligram(s) SQ daily 04/16/201605/17 Inactive levothyroxine 50 mcg tablet RxNorm: 685303 TAKE 1 TABLET BY MOUTH ONCE DAILY 04/08/2016 12/03/2016 Inactive Generic For:SYNTHROID 50MCG TAB 04/08/2016 9:05:40 AM levothyroxine 50 mcg tablet RxNorm: 529150 1 Tablet(s) PO daily TAKE 1 TABLET BY MOUTH ONCE DAILY 04/08/2016 12/03/2016 Inactive Generic For:SYNTHROID 50MCG TAB N O T I C E PRESCRIPTION PREVIOUSLY AUTHORIZED BY DOCTOR:HENRY BAIG [phone] bisoprolol 5 mg-hydrochlorothiazide 6.25 mg tablet RxNorm: 450590 1 Tablet(s) PO BID 03/23/2016 03/17/2017 Inactive Victoza 2-Dariusz 0.6 mg/0.1 mL (18 mg/3 mL) subcutaneous pen injector RxNorm: 925361 0.6 Milligram(s) SQ daily 03/19/201604/15 Inactive Lexapro 5 mg tablet RxNorm: 675700 1 Tablet(s) PO QHS 201606/16/2016 Inactive gabapentin 600 mg tablet RxNorm: 616578 1 Capsule(s) PO TID 07/201601/26/2017 Inactive glimepiride 4 mg tablet RxNorm: 106618 1 Tablet(s) PO daily 06/05/2016 Inactive Victoza 3-Dariusz 0.6 mg/0.1 mL (18 mg/3 mL) subcutaneous pen injector RxNorm: 361096 0.6 Milligram(s) SQ daily x2 weeks, then 1.2 mg SQ daily 03/18/2016 Inactive metformin 500 mg tablet RxNorm: 818742 1 Tablet(s) PO UD 1.5 in morning, noon and 1 at bedtime 08/14/2015 08/07/2016 Inactive gabapentin 600 mg tablet RxNorm: 746590 1 Capsule(s) PO TID SHE IS ONLY TAKING 1 QD 08/14/2015 03/18/2016 Inactive fluticasone 50 mcg/actuation nasal spray,suspension RxNorm: 418327 [place] NASAL ONE SPRAY IN EACH NOSTRIL TWICE DAILY 07/26/2015 07/25/2015 Inactive fluticasone 50 mcg/actuation nasal spray,suspension RxNorm: 1765643 [place] NASAL ONE SPRAY IN EACH NOSTRIL TWICE DAILY 07/26/2015 02/20/2016 Inactive bisoprolol 5 mg-hydrochlorothiazide 6.25 mg tablet RxNorm: 660437 1 Tablet(s) PO daily 1 Tablet(s) PO BID 07/17/20152015 Inactive metformin 500 mg tablet RxNorm: 405305 1 Tablet(s) PO TID 1 Tablet(s) PO TID 07/17/2015 08/13/2015 Inactive Diflucan 100 mg tablet RxNorm: 503022 1 Tablet(s) PO daily 06/201507/21/2015 Inactive Zetia 10 mg tablet RxNorm: 298702 1 Tablet(s) PO daily 201506/03/2016 Inactive bisoprolol 5 mg-hydrochlorothiazide 6.25 mg tablet RxNorm: 205825 1 Tablet(s) PO BID 04/18/2015 07/16/2015 Inactive metformin 500 mg tablet RxNorm: 559332 1 Tablet(s) PO TID 03/0106/28/2015 Inactive glimepiride 4 mg tablet RxNorm: 574585 1 Tablet(s) PO daily 01/30/2015 Inactive levothyroxine 50 mcg tablet RxNorm: 769336 TAKE 1 TABLET BY MOUTH ONCE DAILY 01/31/2015 09/27/2015 Inactive Generic For:SYNTHROID 50MCG TAB N O T I C E PRESCRIPTION PREVIOUSLY AUTHORIZED BY DOCTOR:HENRY BAIG glimepiride 4 mg tablet RxNorm: 130023 1 Tablet(s) PO daily 07/29/2015 Inactive Invokana 100 mg tablet RxNorm: 1241878 1 Tablet(s) PO daily 07/16/2015 Inactive bisoprolol 5 mg-hydrochlorothiazide 6.25 mg tablet RxNorm: 069596 1 Tablet(s) PO BID 08/27/2014 02/22/2015 Inactive metformin 500 mg tablet RxNorm: 438971 1 Tablet(s) PO TID 08/1012/07/2014 Inactive metformin 500 mg tablet RxNorm: 411750 1 Tablet(s) PO TID 08/1008/09/2014 Inactive Fish Oil 1,000 mg capsule RxNorm: 1 Capsule(s) PO daily No Start Date Active Protonix 40 mg tablet,delayed release RxNorm: 351105 1 Tablet(s) PO QAM No Start Date Active furosemide 40 mg tablet RxNorm: 494991 1 Tablet(s) PO daily No Start Date Active pen needle, diabetic 31 gauge x 1/6" RxNorm: Miscellaneous No Start Date Active nitroglycerin 0.4 mg sublingual tablet RxNorm: 252341 1 Tablet(s) SL as needed chest pain No Start Date Active amlodipine 5 mg tablet RxNorm: 895430 1 Tablet(s) PO daily No Start Date Active Entresto 24 mg-26 mg tablet RxNorm: 6358671 1 Tablet(s) PO BID No Start Date Active aspirin 81 mg chewable tablet RxNorm: 961323 1 Tablet(s) PO daily No Start Date 06/02/2017 Inactive Eliquis 5 mg tablet RxNorm: 5404165 1 Tablet(s) PO BID No Start Date 01/26/2018 Inactive bisoprolol-hydrochlorothiazide oral RxNorm: 34968 oral No Start Date 08/26/2014 Inactive levothyroxine 50 mcg tablet RxNorm: 842179 1 Tablet(s) PO daily No Start Date 01/30/2015 Inactive potassium chloride ER 20 mEq tablet,extended release RxNorm: 785026 1 Tablet(s) PO daily No Start Date 06/21/2017 Inactive digoxin 250 mcg tablet RxNorm: 936811 1 Tablet(s) PO daily No Start Date 01/26/2018 Inactive Invokana 100 mg tablet RxNorm: 7890856 1 Tablet(s) PO daily No Start Date 12/11/2014 Inactive tramadol 50 mg tablet RxNorm: 451306 1 Tablet(s) PO TID as needed No Start Date 03/23/2018 Inactive Victoza 3-Dariusz 0.6 mg/0.1 mL (18 mg/3 mL) subcutaneous pen injector RxNorm: 258884 0.6 Milligram(s) SQ daily x2 weeks, then 1.2 mg SQ daily No Start Date 12/01/2015 Inactive Effient 10 mg tablet RxNorm: 986594 1 Tablet(s) PO QAM No Start Date 01/26/2018 Inactive Zetia 10 mg tablet RxNorm: 970833 1 Tablet(s) PO BID No Start Date 03/18/2016 Inactive metoprolol succinate ER 100 mg tablet,extended release 24 hr RxNorm: 786050 1 Tablet(s) PO daily No Start Date 2017 Inactive gabapentin 300 mg capsule RxNorm: 931951 1 Capsule(s) PO BID No Start Date 08/13/2015 Inactive Lasix 40 mg tablet RxNorm: 890542 1 Tablet(s) PO BID No Start Date 04/14/2017 Inactive Coreg 3.125 mg tablet RxNorm: 580758 1 Tablet(s) PO BID with meals No [...] 04/15/2017 stress test and then shipped to [facility] Follow Up 03/19/2017 stress test and then shipped to [facility] diabetes mellitus 02/03/2017 headache 01/07/2017 diabetes mellitus 12/17/2016 diabetes mellitus 09/14/2016 diabetes mellitus 06/18/2016 medication follow up 04/16/2016 back pain 03/19/2016 back pain 11/14/2015 back pain 08/14/2015 diabetes mellitus 07/17/2015 Hospital Follow Up 03/25/2015 diabetes mellitus 12/04/2014 diabetes mellitus 08/14/2014 Results Observation Observation Code Item Item Code Result Date Culture Urine [id number] URINE CULTURE SEE NOTES 02/28/2018 Urine Culture [...] 28.8 pg 02/24/2018 Cbc With Differential Ord2 [place]% 5.7 % 02/24/2018 Cbc With Differential Ord2 [...] 1.57 K/ul 02/24/2018 Cbc With Differential Ord2 [place] ABS# 0.4 K/ul 02/24/2018 Cbc With Differential Ord2 Eos ABS# 0.1 K/ul 02/24/2018 Cbc With Differential Ord2 Baso ABS# 0.0 K/ul 02/24/2018 Comp Metabolic Jvw082 NA 138 mEq/L 02/24/2018 Comp Metabolic Enf539 K 4.4 mEq/L 02/24/2018 Comp Metabolic Qrq658 CL 100 mEq/L 02/24/2018 Comp Metabolic Thu684 CO2 27.0 mEq/L 02/24/2018 Comp Metabolic Bqc842 ANION GAP 15 02/24/2018 Comp Metabolic Uzd649 GLUCOSE 98 mg/dL 02/24/2018 Comp Metabolic Hyn833 Creat 1.0 mg/dL 02/24/2018 Comp Metabolic Wmh498 eGFR 55 ml/min/1.73m2 02/24/2018 Comp Metabolic Mzr798 BUN 25 mg/dL 02/24/2018 Comp Metabolic Eal913 B/C Ratio 24.3 Ratio 02/24/2018 Comp Metabolic Qsn168 CALCIUM 9.4 mg/dL 02/24/2018 Comp Metabolic Wfp429 ALK PHOS 46 U/L 02/24/2018 Comp Metabolic Wbf039 AST(SGOT) 13 U/L 02/24/2018 Comp Metabolic Xfo675 ALT(SGPT) 12 U/L 02/24/2018 Comp Metabolic Avf799 BILI T 0.4 mg/dL 02/24/2018 Comp Metabolic Mux816 ALBUMIN 4.5 g/dL 02/24/2018 Comp Metabolic Vdm963 TPRO 6.6 g/dL 02/24/2018 Comp Metabolic Bfe904 GLOB 2.1 g/dL 02/24/2018 Comp Metabolic Ciw133 A/G Ratio 2.1 Ratio 02/24/2018 Comp Metabolic Jon127 Osmo 280 mOsmo 02/24/2018 Culture Urine [id number] URINE CULTURE SEE NOTES 02/11/2018 Culture Urine [id number] Continued Results 02/11/2018 Urine Culture Ucult Complete >100,000 col/ml aerobic growth sent to ref lab 02/08/2018 %Hba1C Lgl188 % HbA1c 15942-2 6.8 % 01/12/2018 %Hba1C Xqh444 Gluc Ave 148 mg/dL 01/12/2018 Metabolic Ord15 [...] 89.9 fl 01/11/2018 Cbc With Differential Ord2 [place]% 7.8 % 01/11/2018 Cbc With Differential Ord2 [...] 1.70 K/ul 01/11/2018 Cbc With Differential Ord2 [place] ABS# 0.4 K/ul 01/11/2018 Cbc With Differential Ord2 Eos ABS# 0.1 K/ul 01/11/2018 Cbc With Differential Ord2 Baso ABS# 0.0 K/ul 01/11/2018 Magnesium Ord90 Mag 1.7 mg/dL 01/11/2018 Test(s) Not Perfromed [id number] Test(s) Not Performed Test(s) Not Performed. See Below: 09/20/2017 Test(s) Not Perfromed [id number] TEST NAME BNP 09/20/2017 Test(s) Not Perfromed [id number] Rejection Reason Patient Refused due to lack of coving diganosis 09/20/2017 Test(s) Not Perfromed [id number] COMMENT Dorita Notified 09/20 Test(s) Not Perfromed [id number] Applied Researcher Miguel Mclaughlin 2017 B Type Natriuretic Peptide Dms2045 B-CUSTOMER EXPERIENCE PROFESSIONAL 889.00 pg/ml 2017 Cbc With Differential Ord2 WBC 5.72 K/ul 09/20/2017 Cbc With Differential Ord2 RBC 3.88 M/ul 09/20/2017 Cbc With Differential Ord2 HGB 11.2 g/dl 09/20/2017 Cbc With Differential Ord2 Neut% 62.4 % 09/20/2017 Cbc With Differential Ord2 HCT 35.0 % 09/20/2017 Cbc With Differential Ord2 Lymph% 29.4 % 09/20/2017 Cbc With Differential Ord2 MCV 90.2 fl 09/20/2017 Cbc With Differential Ord2 [place]% 5.6 % 09/20/2017 Cbc With Differential Ord2 [...] 1.68 K/ul 09/20/2017 Cbc With Differential Ord2 [place] ABS# 0.3 K/ul 09/20/2017 Cbc With Differential Ord2 Eos ABS# 0.1 K/ul 09/20/2017 Cbc With Differential Ord2 Baso ABS# 0.0 K/ul 09/20/2017 %Hba1C Nzp788 % HbA1c 67551-5 7.9 % 09/20/2017 %Hba1C Kkk188 Gluc Ave 180 mg/dL 09/20/2017 Magnesium Ord90 [...] 28.3 pg 07/07/2017 Cbc With Differential Ord2 [place]% 7.9 % 07/07/2017 Cbc With Differential Ord2 [...] 1.34 K/ul 07/07/2017 Cbc With Differential Ord2 [place] ABS# 0.4 K/ul 07/07/2017 Cbc With Differential Ord2 Eos ABS# 0.1 K/ul 07/07/2017 Cbc With Differential Ord2 Baso ABS# 0.0 K/ul 07/07/2017 Comp Metabolic Bbi016 NA 142 mEq/L 07/07/2017 Comp Metabolic Gty015 K 4.3 mEq/L 07/07/2017 Comp Metabolic Urk555 CL 105 mEq/L 07/07/2017 Comp Metabolic Ooi230 CO2 28.0 mEq/L 07/07/2017 Comp Metabolic Ctj731 ANION GAP 13 07/07/2017 Comp Metabolic Eun298 GLUCOSE 197 mg/dL 07/07/2017 Comp Metabolic Kus919 Creat 1.1 mg/dL 07/07/2017 Comp Metabolic Tqj232 eGFR 51 ml/min/1.73m2 07/07/2017 Comp Metabolic Tve886 BUN 21 mg/dL 07/07/2017 Comp Metabolic Jrx662 B/C Ratio 18.9 Ratio 07/07/2017 Comp Metabolic Ypr618 CALCIUM 8.9 mg/dL 07/07/2017 Comp Metabolic Eas214 ALK PHOS 51 U/L 07/07/2017 Comp Metabolic Axl770 AST(SGOT) 11 U/L 07/07/2017 Comp Metabolic Imb994 ALT(SGPT) 11 U/L 07/07/2017 Comp Metabolic Rlj216 BILI T 0.3 mg/dL 07/07/2017 Comp Metabolic Wmi359 ALBUMIN 4.2 g/dL 07/07/2017 Comp Metabolic Mni093 TPRO 6.0 g/dL 07/07/2017 Comp Metabolic Eoa989 GLOB 1.8 g/dL 07/07/2017 Comp Metabolic Nuz762 A/G Ratio 2.3 Ratio 07/07/2017 Comp Metabolic Bxs747 Osmo 292 mOsmo 07/07/2017 Digoxin Ord9 DIGOXIN 1.3 NG/ML 07/07/2017 Tsh Ord6 TSH (3rd IS) 2.19 uIU/mL 07/07/2017 B Type Natriuretic Peptide Wqw6045 B-CUSTOMER EXPERIENCE PROFESSIONAL 801.00 pg/ml 2017 Culture Urine [id number] URINE CULTURE SEE NOTES 04/19/2017 Culture Urine [id number] Continued Results 04/19/2017 Urine Culture Ucult Complete >100,000 col/ml aerobic growth sent to ref lab 04/16/2017 Comp Metabolic Wcr114 NA 140 mEq/L 01/26/2017 Comp Metabolic Hsf866 K 4.6 mEq/L 01/26/2017 Comp Metabolic Fcv503 CL 102 mEq/L 01/26/2017 Comp Metabolic Gqx384 CO2 28.0 mEq/L 01/26/2017 Comp Metabolic Bqu395 ANION GAP 15 01/26/2017 Comp Metabolic Gxg175 GLUCOSE 173 mg/dL 01/26/2017 Comp Metabolic Zjl372 Creat 1.0 mg/dL 01/26/2017 Comp Metabolic Hml196 eGFR 56 ml/min/1.73m2 01/26/2017 Comp Metabolic Klj857 BUN 23 mg/dL 01/26/2017 Comp Metabolic Qmp358 B/C Ratio 22.5 Ratio 01/26/2017 Comp Metabolic Xke813 CALCIUM 9.4 mg/dL 01/26/2017 Comp Metabolic Svr656 ALK PHOS 52 U/L 01/26/2017 Comp Metabolic Ymo472 AST(SGOT) 12 U/L 01/26/2017 Comp Metabolic Koy904 ALT(SGPT) 12 U/L 01/26/2017 Comp Metabolic Bej891 BILI T 0.5 mg/dL 01/26/2017 Comp Metabolic Keg675 ALBUMIN 4.4 g/dL 01/26/2017 Comp Metabolic Onu672 TPRO 6.5 g/dL 01/26/2017 Comp Metabolic Tgt699 GLOB 2.1 g/dL 01/26/2017 Comp Metabolic Rxh969 A/G Ratio 2.1 Ratio 01/26/2017 Comp Metabolic Zik756 Osmo 287 mOsmo 01/26/2017 Cbc With Differential [...] 29.2 pg 01/26/2017 Cbc With Differential Ord2 [place]% 4.9 % 01/26/2017 Cbc With Differential Ord2 [...] 1.75 K/ul 01/26/2017 Cbc With Differential Ord2 [place] ABS# 0.4 K/ul 01/26/2017 Cbc With Differential Ord2 Eos ABS# 0.1 K/ul 01/26/2017 Cbc With Differential Ord2 Baso ABS# 0.0 K/ul 01/26/2017 %Hba1C Kkp243 % HbA1c 91100-7 7.8 % 01/26/2017 %Hba1C Pdj442 Gluc Ave 177 mg/dL 01/26/2017 Lipid Ord30 CHOL 239 mg/dL 01/26/2017 Lipid Ord30 HDL 40.0 mg/dl 01/26/2017 Lipid Ord30 TRIG 325 mg/dL 01/26/2017 Lipid Ord30 LDL 134 mg/dL 01/26/2017 Lipid Ord30 C/HDL 6.0 Ratio 01/26/2017 Free T4 Nmf854 FREE T4 0.95 ng/dL 01/26/2017 Tsh Ord6 [...] Metabolic Ord15 CALCIUM 9.0 mg/dL 09/08/2016 %Hba1C Rjf101 % HbA1c 97710-0 7.5 % 09/08/2016 %Hba1C Lhx535 Gluc Ave 169 mg/dL 09/08/2016 Tsh Ord6 hTSH II 2.64 uIU/mL 03/13/2016 %Hba1C Hxi263 % HbA1c 88391-2 8.2 % 03/13/2016 %Hba1C Aky315 Gluc Ave 189 mg/dL 03/13/2016 Lipid Ord30 CHOL 233 mg/dL 03/13/2016 Lipid Ord30 HDL 46.0 mg/dl 03/13/2016 Lipid Ord30 TRIG 276 mg/dL 03/13/2016 Lipid Ord30 LDL 132 mg/dL 03/13/2016 Lipid Ord30 C/HDL 5.1 Ratio 03/13/2016 Free T4 Uru074 FREE T4 0.94 ng/dL 03/13/2016 Cbc With [...] 29.5 % 03/13/2016 Cbc With Differential Ord2 [place]% 6.1 % 03/13/2016 Cbc With Differential Ord2 [...] 1.63 K/ul 03/13/2016 Cbc With Differential Ord2 [place] ABS# 0.3 K/ul 03/13/2016 Cbc With Differential Ord2 Eos ABS# 0.1 K/ul 03/13/2016 Cbc With Differential Ord2 Baso ABS# 0.0 K/ul 03/13/2016 Comp Metabolic Wri172 NA 139 mEq/L 03/13/2016 Comp Metabolic Fru521 K 4.3 mEq/L 03/13/2016 Comp Metabolic Xih880 CL 103 mEq/L 03/13/2016 Comp Metabolic Ern334 CO2 28.0 mEq/L 03/13/2016 Comp Metabolic Rhb778 ANION GAP 12 03/13/2016 Comp Metabolic Jya024 GLUCOSE 200 mg/dL 03/13/2016 Comp Metabolic Wfc387 Creat 0.9 mg/dL 03/13/2016 Comp Metabolic Ejq384 eGFR 69 ml/min/1.73m2 03/13/2016 Comp Metabolic Sss427 BUN 19 mg/dL 03/13/2016 Comp Metabolic Sis289 B/C Ratio 22.4 Ratio 03/13/2016 Comp Metabolic Pkg217 CALCIUM 9.0 mg/dL 03/13/2016 Comp Metabolic Cnm647 ALK PHOS 57 U/L 03/13/2016 Comp Metabolic Vqu942 AST(SGOT) 13 U/L 03/13/2016 Comp Metabolic Qth182 ALT(SGPT) 16 U/L 03/13/2016 Comp Metabolic Kbj001 BILI T 0.4 mg/dL 03/13/2016 Comp Metabolic Mxb164 ALBUMIN 4.2 g/dL 03/13/2016 Comp Metabolic Hhj582 TPRO 6.3 g/dL 03/13/2016 Comp Metabolic Cps265 GLOB 2.1 g/dL 03/13/2016 Comp Metabolic Rrw035 A/G Ratio 2.0 Ratio 03/13/2016 Comp Metabolic Ulp266 Osmo 285 mOsmo 03/13/2016 %Hba1C Jqb200 % HbA1c 57438-6 8.3 % 11/14/2015 %Hba1C Qeo351 Gluc Ave 192 mg/dL 11/14/2015 Lipid Ord30 CHOL 210 mg/dL 07/19/2015 Lipid Ord30 HDL 43.0 mg/dl 07/19/2015 Lipid Ord30 TRIG 311 mg/dL 07/19/2015 Lipid Ord30 LDL 105 mg/dL 07/19/2015 Lipid Ord30 C/HDL 4.9 Ratio 07/19/2015 %Hba1C Xvw154 % HbA1c 48325-7 7.6 % 07/19/2015 %Hba1C Guz835 Gluc Ave 171 mg/dL 07/19/2015 Cbc With [...] 28.8 pg 07/19/2015 Cbc With Differential Ord2 [place]% 6.1 % 07/19/2015 Cbc With Differential Ord2 [...] 1.63 K/ul 07/19/2015 Cbc With Differential Ord2 [place] ABS# 0.3 K/ul 07/19/2015 Cbc With Differential Ord2 Eos ABS# 0.1 K/ul 07/19/2015 Cbc With Differential Ord2 Baso ABS# 0.0 K/ul 07/19/2015 Cbc With Differential Ord2 New Analyzer Notice Please note new ref ranges starting 03-27-2015 due to implemntation of new five part differential hematolgy analyzer. 07/19/2015 Comp Metabolic Kbo081 NA 138 mEq/L 07/19/2015 Comp Metabolic Auv385 K 4.3 mEq/L 07/19/2015 Comp Metabolic Rxd980 CL 100 mEq/L 07/19/2015 Comp Metabolic Gcx971 CO2 33.0 mEq/L 07/19/2015 Comp Metabolic Wcw179 ANION GAP 9 07/19/2015 Comp Metabolic Qbp628 GLUCOSE 149 mg/dL 07/19/2015 Comp Metabolic Ttr976 Creat 0.9 mg/dL 07/19/2015 Comp Metabolic Kmn102 eGFR 62 ml/min/1.73m2 07/19/2015 Comp Metabolic Ibn861 BUN 19 mg/dL 07/19/2015 Comp Metabolic Fzy454 B/C Ratio 20.2 Ratio 07/19/2015 Comp Metabolic Vig325 CALCIUM 9.5 mg/dL 07/19/2015 Comp Metabolic Hkj758 ALK PHOS 52 U/L 07/19/2015 Comp Metabolic Jsy287 AST(SGOT) 15 U/L 07/19/2015 Comp Metabolic Qrb800 ALT(SGPT) 14 U/L 07/19/2015 Comp Metabolic Rme585 BILI T 0.5 mg/dL 07/19/2015 Comp Metabolic Ghb272 ALBUMIN 4.4 g/dL 07/19/2015 Comp Metabolic Kkj375 TPRO 6.4 g/dL 07/19/2015 Comp Metabolic Mfo510 GLOB 2.0 g/dL 07/19/2015 Comp Metabolic Zwc510 A/G Ratio 2.2 Ratio 07/19/2015 Comp Metabolic Cmf014 Osmo 281 mOsmo 07/19/2015 Free T4 Dqv165 FREE T4 0.92 ng/dL 07/19/2015 Tsh Ord6 hTSH II 1.95 uIU/mL 07/19/2015 Microalbumin Qje153 MicroAlb 0.4 mg/dL 07/19/2015 Comp Metabolic Rnh273 NA 137 mEq/L 12/04/2014 Comp Metabolic Hzn075 K 4.0 mEq/L 12/04/2014 Comp Metabolic Gvw774 CL 100 mEq/L 12/04/2014 Comp Metabolic Vwo564 CO2 29.0 mEq/L 12/04/2014 Comp Metabolic Rne255 ANION GAP 12 12/04/2014 Comp Metabolic Bjo968 GLUCOSE 171 mg/dL 12/04/2014 Comp Metabolic Fet909 Creat 1.0 mg/dL 12/04/2014 Comp Metabolic Ccg158 eGFR 60 ml/min/1.73m2 12/04/2014 Comp Metabolic Zid590 BUN 25 mg/dL 12/04/2014 Comp Metabolic Xbd452 B/C Ratio 25.8 Ratio 12/04/2014 Comp Metabolic Yeg568 CALCIUM 9.4 mg/dL 12/04/2014 Comp Metabolic Bqv374 ALK PHOS 60 U/L 12/04/2014 Comp Metabolic Fnc304 AST(SGOT) 13 U/L 12/04/2014 Comp Metabolic Bmx769 ALT(SGPT) 17 U/L 12/04/2014 Comp Metabolic Jcf786 BILI T 0.4 mg/dL 12/04/2014 Comp Metabolic Gjp648 ALBUMIN 4.4 g/dL 12/04/2014 Comp Metabolic Ikl720 TPRO 6.9 g/dL 12/04/2014 Comp Metabolic Ujq813 GLOB 2.5 g/dL 12/04/2014 Comp Metabolic Rfe280 A/G Ratio 1.8 Ratio 12/04/2014 Comp Metabolic Cev776 Osmo 282 mOsmo 12/04/2014 Tsh Ord6 hTSH II 1.78 uIU/mL 12/04/2014 %Hba1C Xhm782 % HbA1c 10020-2 8.3 % 12/04/2014 %Hba1C Mya574 Gluc Ave 192 mg/dL 12/04/2014 Free T4 Yte258 FREE T4 0.85 ng/dL 12/04/2014 Lipid Ord30 [...] clear 10/11/2017 None Full Exam - General 1995 Eyes conjunctiva /eyelids Overall: cornea clear 10/11/2017 [...] developed 04/15/2017 None Full Exam - General 1995 Constitutional general appearance Overall: in no acute distress 04/15/2017 None Full Exam - General 1995 Constitutional general appearance Overall: well nourished 04/15/2017 None Full Exam - General 1994 Constitutional general appearance Hygiene/Attention to Grooming: good hygiene 04/15/2017 None Full Exam - General 1995 Eyes conjunctiva /eyelids Overall: conjunctiva clear 04/15/2017 None Full Exam - General 1995 Eyes conjunctiva /eyelids Overall: cornea clear 04/15/2017 [...] Codes Date URINALYSIS NONAUTO W/O SCOPE CPT-4: 02267 02/24/2018 URINALYSIS NONAUTO W/O SCOPE CPT-4: 65668 02/07/2018 ADMIN INFLUENZA VIRUS VAC CPT-4: G0008 11/25/2017 FLU VAC NO PRSV 4 ANABELLE 3 YRS+ CPT-4: 95419 11/25/2017 GLUC MONITOR CONT PHYS I&R CPT-4: 25557 10/26/2017 GLUCOSE MONITORING CONT CPT-4: 31040 10/11/2017 URINALYSIS NONAUTO W/O SCOPE CPT-4: 30242 04/15/2017 FLU VAC NO PRSV 4 ANABELLE 3 YRS+ CPT-4: 29990 12/17/2016 ADMIN INFLUENZA VIRUS VAC CPT-4: G0008 12/17/2016 FLU VACC PRSV FREE INC ANTIG Formatting Model/CDA Sections, Assigned to/Nery Daniels CPT-4: 31146Lujgvgd 11/14/2015 ADMIN INFLUENZA VIRUS VAC CPT-4: G0008 11/14/2015 ADMIN INFLUENZA VIRUS VAC Formatting Model/CDA Sections, Assigned to/Nery Daniels CPT-4: W6692Lkjchma 12/04/2014 FLU VACC 4 ANABELLE 3 YRS PLUS IM SNOMED CT: [id number] CPT-4: 65217 12/04/2014 Vital Signs Date Vital 02/24/2018 Blood Pressure 1: 130/62 Code : 8480-6 BMI: 28.9 Code : 10618-3 Heart Rate 1 : 57 bpm Height: 5' SpO2: 99% Weight: 148 lbs 01/27/2018 Blood Pressure 1: 142/70 Code : 8480-6 BMI: 29.5 Code : 50584-5 Heart Rate 1 : 61 bpm Height: 5' SpO2: 99% Weight: 151 lbs 11/25/2017 Blood Pressure 1: 148/72 Code : 8480-6 BMI: 30.9 Code : 47793-7 Heart Rate 1 : 62 bpm Height: 5' SpO2: 98% Weight: 158 lbs 10/26/2017 Blood Pressure 1: 156/74 Code : 8480-6 BMI: 31.2 Code : 66844-7 Heart Rate 1 : 71 bpm Height: 5' SpO2: 98% Weight: 160 lbs 10/11/2017 Blood Pressure 1: 128/70 Code : 8480-6 BMI: 30.9 Code : 59316-0 Heart Rate 1 : 70 bpm Height: 5' SpO2: 95% Weight: 158 lbs 09/22/2017 Blood Pressure 1: 110/52 Code : 8480-6 BMI: 30.9 Code : 59962-2 Heart Rate 1 : 72 bpm Height: 5' SpO2: 99% Weight: 158 lbs 07/06/2017 Blood Pressure 1: 120/85 Code : 8480-6 BMI: 31.4 Code : 84139-6 Heart Rate 1 : 74 bpm Height: 5' SpO2: 92% Weight: 161 lbs 06/03/2017 Blood Pressure 1: 120/62 Code : 8480-6 BMI: 31.1 Code : 81766-8 Heart Rate 1 : 73 bpm Height: 5' SpO2: 99% Weight: 159 lbs 05/12/2017 Blood Pressure 1: 132/68 Code : 8480-6 BMI: 32.4 Code : 21249-6 Heart Rate 1 : 95 bpm Height: 5' SpO2: 97% Weight: 166 lbs 04/15/2017 Blood Pressure 1: 128/84 Code : 8480-6 BMI: 32.4 Code : 66536-8 Heart Rate 1 : 62 bpm Height: 5' SpO2: 97% Weight: 166 lbs 03/19/2017 Blood Pressure 1: 112/60 Code : 8480-6 BMI: 32.0 Code : 20506-5 Height: 5' Weight: 164 lbs 02/03/2017 Blood Pressure 1: 128/76 Code : 8480-6 BMI: 33.4 Code : 71030-8 Heart Rate 1 : 91 bpm Height: 5' SpO2: 99% Weight: 171 lbs 01/07/2017 Blood Pressure 1: 126/74 Code : 8480-6 BMI: 34.2 Code : 17190-8 Heart Rate 1 : 83 bpm Height: 5' SpO2: 97% Weight: 175 lbs 12/17/2016 Blood Pressure 1: 122/72 Code : 8480-6 BMI: 34.0 Code : 07749-1 Heart Rate 1 : 78 bpm Height: 5' SpO2: 97% Weight: 174 lbs 09/14/2016 Blood Pressure 1: 128/86 Code : 8480-6 BMI: 33.8 Code : 25975-3 Heart Rate 1 : 88 bpm Height: 5' SpO2: 96% Weight: 173 lbs 06/18/2016 Blood Pressure 1: 12274 Code : 8480-6 BMI: 34.8 Code : 74176-1 Heart Rate 1 : 78 bpm Height: 5' SpO2: 98% Weight: 178 lbs 04/16/2016 Blood Pressure 1: 134/68 Code : 8480-6 BMI: 35.0 Code : 35433-0 Heart Rate 1 : 67 bpm Height: 5' SpO2: 97% Weight: 179 lbs 03/19/2016 Blood Pressure 1: 132/74 Code : 8480-6 BMI: 34.6 Code : 55493-8 Heart Rate 1 : 74 bpm Height: 5' SpO2: 97% Weight: 177 lbs 11/14/2015 Blood Pressure 1: 132/70 Code : 8480-6 BMI: 35.2 Code : 35486-9 Heart Rate 1 : 68 bpm Height: 5' Weight: 180 lbs 08/14/2015 Blood Pressure 1: 122/74 Code : 8480-6 BMI: 33.8 Code : 07511-0 Heart Rate 1 : 73 bpm Height: 5' SpO2: 93% Weight: 173 lbs 07/17/2015 Blood Pressure 1: 138/78 Code : 8480-6 BMI: 34.0 Code : 36799-9 Heart Rate 1 : 85 bpm Height: 5' SpO2: 97% Weight: 174 lbs 03/25/2015 Blood Pressure 1: 130/78 Code : 8480-6 BMI: 33.2 Code : 55231-3 Heart Rate 1 : 77 bpm Height: 5' SpO2: 97% Weight: 170 lbs 12/04/2014 Blood Pressure 1: 120/74 Code : 8480-6 BMI: 35.4 Code : 38248-6 Heart Rate 1 : 67 bpm Height: 5' SpO2: 94% Weight: 181 lbs 5 oz 08/14/2014 Blood Pressure 1: 132/68 Code : 8480-6 BMI: 32.1 Code : 57894-4 Heart Rate 1 : 62 bpm Height: [...] data Encounters Encounter Performer Location Codes Date ([id number]) 57852 EST. PATIENT, LEVEL IV Diagnosis: Low back pain[ICD10: M54.5] Diagnosis: Dysuria[ICD10: R30.0] Diagnosis: Type 2 diabetes mellitus with hyperglycemia[ICD10: E11.65] Claudia Nicole MD, [facility] CPT-4: 66337 02/24/2018 ([id number] 94818 EST. PATIENT, LEVEL IV Diagnosis: Type 2 diabetes mellitus with hyperglycemia[ICD10: E11.65] Diagnosis: Essential (primary) hypertension[ICD10: I10] Diagnosis: Major depressive disorder, recurrent, mild[ICD10: F33.0] Diagnosis: Generalized anxiety disorder[ICD10: F41.1] Claudia Nicole MD, [facility] CPT-4: 89540 01/27/2018 ([id number]) 52564 EST. PATIENT, LEVEL IV Diagnosis: Type 2 diabetes mellitus with hyperglycemia[ICD10: E11.65] Diagnosis: Essential (primary) hypertension[ICD10: I10] Diagnosis: Encounter for immunization[ICD10: Z23] Diagnosis: Carpal tunnel syndrome, left upper limb[ICD10: G56.02] Claudia Nicole MD, [facility] CPT-4: 93353 11/25/2017 ([id number]) 30155 EST. PATIENT, LEVEL III Diagnosis: Type 2 diabetes mellitus with hyperglycemia[ICD10: E11.65] [facility] CPT-4: 98828 10/26/2017 ([id number]) Miscellaneous no charge Diagnosis: Type 2 diabetes mellitus with hyperglycemia[ICD10: E11.65] [facility] CPT-4: 84804 10/18/2017 ([id number]) 57819 EST. 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 PATIENT, LEVEL IV Diagnosis: Type 2 diabetes mellitus with hyperglycemia[ICD10: E11.65] Diagnosis: Paroxysmal atrial fibrillation[ICD10: I48.0] Diagnosis: Essential (primary) hypertension[ICD10: I10] Mila Nicole MD, [facility] CPT-4: 99850 07/06/2017 ([id number]) 37505 EST. PATIENT, LEVEL IV Diagnosis: Essential (primary) hypertension[ICD10: I10] Diagnosis: Type 2 diabetes mellitus with hyperglycemia[ICD10: E11.65] Diagnosis: Paroxysmal atrial fibrillation[ICD10: I48.0] Claudia Nicole MD, [facility] CPT-4: 09844 06/03/2017 [id number] EST. PATIENT, LEVEL III Diagnosis: Generalized anxiety disorder[ICD10: F41.1] Diagnosis: Major depressive disorder, recurrent, moderate[ICD10: F33.1] Diagnosis: Paroxysmal tachycardia, unspecified[ICD10: I47.9] Gardenia Nicole MD, [facility] CPT-4: 45057 05/12/2017 ([id number]) 21898 EST. PATIENT, LEVEL IV Diagnosis: Essential (primary) hypertension[ICD10: I10] Diagnosis: Cough[ICD10: R05] Diagnosis: Dysuria[ICD10: R30.0] Mila Nicole MD, [facility] CPT-4: 53244 04/15/2017 ([id number]) 70734 EST. PATIENT, LEVEL IV Diagnosis: Type 2 diabetes mellitus with hyperglycemia[ICD10: E11.65] Diagnosis: Essential (primary) hypertension[ICD10: I10] Mila Nicole MD, [facility] CPT-4: 62650 03/19/2017 ([id number]) 41924 EST. PATIENT, LEVEL III Diagnosis: Type 2 diabetes mellitus with hyperglycemia[ICD10: E11.65] Mila Nicole MD , [facility] CPT-4: 92793 02/03/2017 71369 EST. PATIENT, LEVEL IV Diagnosis: Generalized anxiety disorder[ICD10: F41.1] Diagnosis: Type 2 diabetes mellitus with hyperglycemia[ICD10: E11.65] Diagnosis: Essential (primary) hypertension[ICD10: I10] Gardenia Nicole MD, [facility] CPT-4: 87091 01/07/2017 ([id number]) 19295 EST. PATIENT, LEVEL III Diagnosis: Type 2 diabetes mellitus with hyperglycemia[ICD10: E11.65] Diagnosis: Encounter for immunization[ICD10: Z23] Mila Nicole MD [facility] CPT-4: 16783 12/17/2016 ([id number]) 15662 EST. PATIENT, LEVEL IV Diagnosis: Type 2 diabetes mellitus with hyperglycemia[ICD10: E11.65] Diagnosis: Essential (primary) hypertension[ICD10: I10] Diagnosis: Major depressive disorder, recurrent, mild[ICD10: F33.0] Mila Nicole MD, [facility] CPT-4: 14205 09/14/2016 ([id number]) 94143 EST. 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 PATIENT, LEVEL IV Diagnosis: Type 2 diabetes mellitus with hyperglycemia[ICD10: E11.65] Diagnosis: Essential (primary) hypertension[ICD10: I10] Mila Nicole MD, [facility] CPT-4: 36280 04/16/2016 ([id number]) 31880 EST. 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 PATIENT, LEVEL IV Diagnosis: Type 2 diabetes mellitus with hyperglycemia[ICD10: E11.65] Diagnosis: Encounter for immunization[ICD10: Z23] Diagnosis: Essential (primary) hypertension[ICD10: I10] Mila Nicole MD, [facility] CPT-4: 99932 11/14/2015 ([id number]) 15583 EST. PATIENT, LEVEL IV Diagnosis: Type 2 diabetes mellitus with hyperglycemia[ICD10: E11.65] Diagnosis: Essential (primary) hypertension[ICD10: I10] Diagnosis: Low back pain[ICD10: M54.5] Mila Nicole MD, [facility] CPT- 4: 26297 08/14/2015 ([id number]) 34028 EST. PATIENT, LEVEL IV Diagnosis: Type 2 diabetes mellitus with hyperglycemia[ICD10: E11.65] Diagnosis: Essential (primary) hypertension[ICD10: I10] Diagnosis: Hypothyroidism, unspecified[ICD10: E03.9] [facility] CPT-4: 03388 07/17/2015 ([id number]) 58623 EST. PATIENT, LEVEL IV Diagnosis: Essential (primary) hypertension[ICD10: I10] Diagnosis: Type 2 diabetes mellitus with hyperglycemia[ICD10: E11.65] Diagnosis: Headache[ICD10: R51] [facility] CPT-4: 08054 03/25/2015 ([id number]) 17512 EST. PATIENT, LEVEL IV Diagnosis: ESSENTIAL HYPERTENSION[ICD9: 401.9] Diagnosis: DIABETES TYPE II[ICD9: 250.00] Diagnosis: Aortic stenosis[ICD9: 424.1] [facility] CPT- 4: 72519 12/04/2014 ([id number]) OFFICE VISIT, NEW - LEVEL 4 Diagnosis: ESSENTIAL HYPERTENSION[ICD9: 401.9] Diagnosis: Diabetes mellitus out of control[ICD9: 250.02] [facility] CPT-4: 76450 08/14/2014 Plan of Care Planned Activity Notes Codes Status Date Visit Plan: Low back pain-xray lumbar spine Dysuria- improved-will culture urine SV-[id number]-[id number] changes today 02/24/2018 Appointment: Claudia Pruitt WPtel: [address] [place], [place] [phone] (15 min) Moderate 02/24/2018 Patient Education: Patient [...] current medications. 01/27/2018 Appointment: [phone] [facility] [phone] (15 min) Moderate 01/27/2018 Patient Education: Patient [...] any worse 11/25/2017 Appointment: [phone] [facility] [phone] (15 min) Moderate 11/25/2017 Patient Education: Patient Medication Summary Completed 11/25/2017 [facility]ment[facility] [phone] [facility] (15 min) Moderate 10/28/2017 Visit Plan: Diabetes [...] appt. 10/26/2017 Appointment: Claudia Pruitt WPtel: [phone] [phone] (15 min) Moderate 10/26/2017 Patient Education: Patient [...] plan. 10/11/2017 Appointment: [facility]ruitt [phone] [phone] (30 min) Complex 10/11/2017 Patient Education: Patient [...] Completed 09/22/2017 Appointment: Mila Nicole WPtel: [phone] [facility] [place] (15 min) Moderate 09/13/2017 Appointment: Mila Nicole WPtel: [phone] [facility] (15 min) Moderate 09/07/2017 Visit Plan: [...] uncontrolled. 07/06/2017 Appointment: [facility] [phone] [facility] [place] (15 min) Moderate 07/06/2017 Patient Education: Patient Medication Summary Completed 07/06/2017 Appointment: Mila Nicole WPtel: [phone] [facility] [place] (15 min) Moderate 06/07/2017 Visit Plan: Hypertension [...] controlled. 06/03/2017 Appointment: [facility] Pruitt [facility] [phone] [facility] [phone] (30 min) Complex 06/03/2017 Patient Education: Patient [...] plan 05/12/2017 Appointment: Garden[facility] Shah [phone] [facility] [place] (30 min) Complex 05/12/2017 Patient Education: Patient [...] Entresto medication. 04/15/2017 Appointment: Mila Nicole WPtel: [facility] (15 min) Moderate 04/15/2017 Patient Education: Patient [...] units daily. 03/19/2017 Appointment: Mila Nicole WPtel: [facility] (15 min) Moderate 03/19/2017 Patient Education: Patient Medication Summary Completed 03/19/2017 Appointment: [facility] [phone] [facility] (15 min) Moderate 02/24/2017 Visit Plan: [...] HS 02/03/2017 Appointment: Mila Nicole WPtel: [phone] [facility] (15 min) Moderate 02/03/2017 Patient Education: [...] acute concerns. 01/07/2017 Appointment: Gardenia Shah WPtel: [phone] [facility] [place] (30 min) Complex 01/07/2017 Patient Education: [...] to allow for greater blood glucose control. [id number], 02/2018 junior nordisk 12/17/2016 Appointment: Mila Nicole WPtel: [phone] [facility] [place] (15 min) Moderate 12/17/2016 Patient Education: Patient Medication Summary Completed 12/17/2016 Patient Education: Obesity Completed 12/17/2016 Appointment: Mil[facility] Nicole [facility]Ptel: [phone] [facility] [place] (15 min) Moderate 12/14/2016 Visit Plan: [...] current medications. 09/14/2016 Appointment: Mil[facility] Nicole WPtel: [phone] [facility] [place] (15 min) Moderate 09/14/2016 Patient Education: [...] home. 06/18/2016 Appointment: Mil[facility] Nicole [facility]Ptel: [phone] [facility] (15 min) Moderate 06/18/2016 Patient Education: Patient [...] home. 04/16/2016 Appointment: Mil[facility] Nicole [facility]Ptel: [phone] [facility] [address] [facility] [address] (15 min) Moderate 04/16/2016 Patient Education: Patient [...] gabapentin 03/19/2016 Appointment: Mila Nicole WPtel: [phone] [facility] (15 min) Moderate 03/19/2016 Patient Education: Patient [...] at home. 11/14/2015 Appointment: Mila Nicole WPtel: [phone] [facility] [place] (15 min) Moderate 11/14/2015 Patient Education: [...] check Hgba1c 07/17/2015 Appointment: Mil[facility] Nicole [facility]Ptel: [phone] [facility] (15 min) Moderate 07/17/2015 Patient Education: Patient [...] Hypertension Completed 03/25/2015 Appointment: Mila Nicole WPtel: [facility] (15 min) Moderate 01/14/2015 Visit Plan: [...] on previous levels of control. 12/04/2014 [place]: [place] [phone] [facility] [address] [facility] [address] (15 min) Moderate 12/04/2014 Patient Education: [...] control. 08/14/2014 Appointment: Mila Nicole WPtel: [phone] [facility] [place] (S) New Patient 08/14/2014 Patient [...] months based on previous levels of control. stop the glimepiride continue with metformin and [...] situational exposure. No change in current medications. On 02/07/17 - stop the Victoza On [...] start on lantus 10 units at HS . Diabetes Mellitus - controlled - per [...] readings are starting to become less controlled. increase basaglar to 15 units at bedtime [...] change in blood pressure readings at home. CHECK LABS AND UA XRAY LUMBAR . Low back pain-xray lumbar spine Dysuria- improved-will culture urine [id number] changes today cut back on carbohydrates in food - [...] to allow for greater blood glucose control. [id number], 02/2018 junior nordisk I think the entresto is causing you [...] allow for greater blood glucose control. . Diabetes Mellitus - controlled - [...] their heart rate is becoming uncontrolled. . Anxiety - the patient has uncontrolled [...] with any changes in current treatment plan Decrease victoza back to your previous dose [...] Back pain - gabapentin for back pain. tylenol 2 pills three times daily x [...] do not improve or if any worse INCREASE BASAGLAR TO 18 UNITS DAILY . [...] appt. INCREASE BASAGLAR TO 18 UNITS DAILY increase [...] log of blood sugars to appt. . Follow up from ED - pt [...] based on previous levels of control. . Hypertension - well controlled - continue [...] start on diflucan treatment - check Hgba1c . Diabetes Mellitus - controlled - per [...] with insulin at 10 units daily. . DM-patient is here for placement of [...]
--- OUTSIDE RECORDS SUMMARY | 2018-03-30 10:36 | XMS REPORT | CCD ---
Author Author [facility] Organization [facility] Address [address] [place] [address] Phone Care Team Providers Care Equipment Man Name Role Phone PP Unavailable CCM Unavailable Summary Purpose Interface Exchange Insurance Providers Payer name Policy type / Coverage type Covered democrat ID Effective Begin Date Effective End Date WPS Medicare Part B Medicare Part B [id number] Unknown AARP Medicare Part B [id number] Unknown Family history Mother Diagnosis Age At [...] Unknown 3 08/14/[address]: 080601588 Never smoker 08/14/[address]: 424467045 Never drinks alcohol 08/14/2014 Allergies, Adverse Reactions, Alerts Substance Reaction Codes Entered Date Inactivated Date Status * OTHER REACTION - SEE ANSWER BOX Invokana, Victoza Unknown 07/2017 No Inactive Date Active Paxil has blurred vision RxNorm: 900770 08/14/2014 No Inactive Date Active Lipitor RxNorm: 96031 08/14/2014 No Inactive Date Active Past Medical [...] Instructions fluticasone 50 mcg/actuation nasal spray,suspension RxNorm: 5291025 INSTILL ONE SPRAY IN EACH NOSTRILTWICE A DAY 03/16/2018 10/11/2018 Active Generic For:FLONASE SPR 0.05% 03/16/2018 8:50:59 AM Keflex 500 mg capsule RxNorm: 378313 1 Capsule(s) PO TID 201702/10/2018 Inactive Keflex 500 mg capsule RxNorm: 754802 1 Capsule(s) PO TID 201702/20/2018 Inactive metoprolol succinate ER 200 mg tablet,extended release 24 hr RxNorm: 891328 1 Tablet(s) PO daily 01/27/2018 No Stop Date Active Eliquis 2.5 mg tablet RxNorm: 0127052 1 Tablet(s) PO BID 2017 No Stop Date Active digoxin 125 mcg tablet RxNorm: 652812 1 Tablet(s) PO daily No Stop Date Active Basaglar KwikPen U-100 Insulin 100 unit/mL (3 mL) subcutaneous RxNorm: 5553956 20 Unit(s) SQ daily 11/25/201705/23 Active UPDATE RX metformin 500 mg tablet RxNorm: 262261 1 Tablet(s) PO UD 1.5 in morning, noon and 1 at bedtime 10/28/2017 10/22/2018 Active Basaglar KwikPen U-100 Insulin 100 unit/mL (3 mL) subcutaneous RxNorm: 0632290 18 Unit(s) SQ daily 10/26/201711/24 Inactive UPDATE RX levothyroxine 50 mcg tablet RxNorm: 299052 TAKE 1 TABLET BY MOUTH ONCE DAILY 10/15/2017 06/11/2018 Active Generic For:SYNTHROID 50MCG TAB 10/15/2017 9:59:00 AM escitalopram 10 mg tablet RxNorm: 026935 1 Tablet(s) PO QPM 01/201809/16/2018 Active Generic For:LEXAPRO 5MG 01/07/2017 9:05:43 AM Basaglar KwikPen U-100 Insulin 100 unit/mL (3 mL) subcutaneous RxNorm: 5603804 15 Unit(s) SQ daily 09/22/201710/25 Inactive potassium chloride ER 20 mEq tablet,extended release RxNorm: 359800 1 Tablet(s) PO daily 06/22/2017 01/17/2018 Inactive Lantus Solostar U-100 Insulin 100 unit/mL (3 mL) subcutaneous pen RxNorm: 760493 10 Unit(s) SQ daily 06/08/2017 Inactive Basaglar KwikPen U-100 Insulin 100 unit/mL (3 mL) subcutaneous RxNorm: 4703647 10 Unit(s) SQ daily 06/08/201706/07 Inactive Basaglar KwikPen U-100 Insulin 100 unit/mL (3 mL) subcutaneous RxNorm: 7094185 10 Unit(s) SQ daily 06/08/201709/21 Inactive Lexapro 5 mg tablet RxNorm: 193499 1 Tablet(s) PO daily 201711/27/2017 Inactive Lexapro 5 mg tablet RxNorm: 012158 1 Tablet(s) PO daily 201705/31/2017 Inactive bisoprolol 5 mg-hydrochlorothiazide 6.25 mg tablet RxNorm: 060629 1 Tablet(s) PO BID 05/04/2017 06/02/2017 Inactive Keflex 500 mg capsule RxNorm: 980559 1 Capsule(s) PO QID 201704/21/2017 Inactive Lantus Solostar 100 unit/mL (3 mL) subcutaneous insulin pen RxNorm: 426637 10 Unit(s) SQ daily 02/03/2017 06/07/2017 Inactive levothyroxine 50 mcg tablet RxNorm: 532124 TAKE 1 TABLET BY MOUTH ONCE DAILY 02/01/2017 09/28/2017 Inactive Generic For:SYNTHROID 50MCG TAB 02/01/2017 9:20:59 AM gabapentin 600 mg tablet RxNorm: 759674 1 Capsule(s) PO TID 01/21/2018 Inactive Lexapro 5 mg tablet RxNorm: 042122 TAKE 1 TABLET BY MOUTH AT BEDTIME 01/07/2017 09/21/2017 Inactive Generic For:LEXAPRO 5MG 01/07/2017 9:05:43 AM Victoza 2-Dariusz 0.6 mg/0.1 mL (18 mg/3 mL) subcutaneous pen injector RxNorm: 872222 1.8 Milligram(s) SQ daily 12/17/201602/07 Inactive Victoza 3-Dariusz 0.6 mg/0.1 mL (18 mg/3 mL) subcutaneous pen injector RxNorm: 467706 Milligram(s) SQ 12/17/2016 02/07/2017 Inactive Zetia 10 mg tablet RxNorm: 114366 1 Tablet(s) PO daily 201611/11/2017 Inactive fluticasone 50 mcg/actuation nasal spray,suspension RxNorm: 6643785 [place] NASAL ONE SPRAY IN EACH NOSTRIL TWICE DAILY 09/28/2016 04/25/2017 Inactive Victoza 2-Dariusz 0.6 mg/0.1 mL (18 mg/3 mL) subcutaneous pen injector RxNorm: 681056 1.2 Milligram(s) SQ daily 09/14/201612/16 Inactive Lexapro 5 mg tablet RxNorm: 745434 1 Tablet(s) PO QHS 201612/12/2016 Inactive metformin 500 mg tablet RxNorm: 483519 1 Tablet(s) PO UD 1.5 in morning, noon and 1 at bedtime 09/08/2016 09/02/2017 Inactive glimepiride 4 mg tablet RxNorm: 443781 TAKE 1 TABLET BY MOUTH ONCE DAILY 07/31/2016 09/13/2016 Inactive Generic For:*AMARYL 4MG 07/31/2016 9:02:38 AM Victoza 2-Dariusz 0.6 mg/0.1 mL (18 mg/3 mL) subcutaneous pen injector RxNorm: 538576 1.2 Milligram(s) SQ daily 05/18/201609/13 Inactive Victoza 2-Dariusz 0.6 mg/0.1 mL (18 mg/3 mL) subcutaneous pen injector RxNorm: 420195 1.2 Milligram(s) SQ daily 04/16/201605/17 Inactive levothyroxine 50 mcg tablet RxNorm: 759285 TAKE 1 TABLET BY MOUTH ONCE DAILY 04/08/2016 12/03/2016 Inactive Generic For:SYNTHROID 50MCG TAB 04/08/2016 9:05:40 AM levothyroxine 50 mcg tablet RxNorm: 917913 1 Tablet(s) PO daily TAKE 1 TABLET BY MOUTH ONCE DAILY 04/08/2016 12/03/2016 Inactive Generic For:SYNTHROID 50MCG TAB N O T I C E PRESCRIPTION PREVIOUSLY AUTHORIZED BY DOCTOR:HENRY BAIG [phone] bisoprolol 5 mg-hydrochlorothiazide 6.25 mg tablet RxNorm: 309697 1 Tablet(s) PO BID 03/23/2016 03/17/2017 Inactive Victoza 2-Dariusz 0.6 mg/0.1 mL (18 mg/3 mL) subcutaneous pen injector RxNorm: 206581 0.6 Milligram(s) SQ daily 03/19/201604/15 Inactive Lexapro 5 mg tablet RxNorm: 022206 1 Tablet(s) PO QHS 201606/16/2016 Inactive gabapentin 600 mg tablet RxNorm: 269496 1 Capsule(s) PO TID 07/201601/26/2017 Inactive glimepiride 4 mg tablet RxNorm: 082283 1 Tablet(s) PO daily 06/05/2016 Inactive Victoza 3-Dariusz 0.6 mg/0.1 mL (18 mg/3 mL) subcutaneous pen injector RxNorm: 427756 0.6 Milligram(s) SQ daily x2 weeks, then 1.2 mg SQ daily 03/18/2016 Inactive metformin 500 mg tablet RxNorm: 484502 1 Tablet(s) PO UD 1.5 in morning, noon and 1 at bedtime 08/14/2015 08/07/2016 Inactive gabapentin 600 mg tablet RxNorm: 243299 1 Capsule(s) PO TID SHE IS ONLY TAKING 1 QD 08/14/2015 03/18/2016 Inactive fluticasone 50 mcg/actuation nasal spray,suspension RxNorm: 425207 [place] NASAL ONE SPRAY IN EACH NOSTRIL TWICE DAILY 07/26/2015 07/25/2015 Inactive fluticasone 50 mcg/actuation nasal spray,suspension RxNorm: 4164014 [place] NASAL ONE SPRAY IN EACH NOSTRIL TWICE DAILY 07/26/2015 02/20/2016 Inactive bisoprolol 5 mg-hydrochlorothiazide 6.25 mg tablet RxNorm: 203938 1 Tablet(s) PO daily 1 Tablet(s) PO BID 07/17/20152015 Inactive metformin 500 mg tablet RxNorm: 701160 1 Tablet(s) PO TID 1 Tablet(s) PO TID 07/17/2015 08/13/2015 Inactive Diflucan 100 mg tablet RxNorm: 439662 1 Tablet(s) PO daily 06/201507/21/2015 Inactive Zetia 10 mg tablet RxNorm: 529713 1 Tablet(s) PO daily 201506/03/2016 Inactive bisoprolol 5 mg-hydrochlorothiazide 6.25 mg tablet RxNorm: 513962 1 Tablet(s) PO BID 04/18/2015 07/16/2015 Inactive metformin 500 mg tablet RxNorm: 029124 1 Tablet(s) PO TID 03/0106/28/2015 Inactive glimepiride 4 mg tablet RxNorm: 609875 1 Tablet(s) PO daily 01/30/2015 Inactive levothyroxine 50 mcg tablet RxNorm: 025449 TAKE 1 TABLET BY MOUTH ONCE DAILY 01/31/2015 09/27/2015 Inactive Generic For:SYNTHROID 50MCG TAB N O T I C E PRESCRIPTION PREVIOUSLY AUTHORIZED BY DOCTOR:HENRY BAIG glimepiride 4 mg tablet RxNorm: 662343 1 Tablet(s) PO daily 07/29/2015 Inactive Invokana 100 mg tablet RxNorm: 6357869 1 Tablet(s) PO daily 07/16/2015 Inactive bisoprolol 5 mg-hydrochlorothiazide 6.25 mg tablet RxNorm: 614160 1 Tablet(s) PO BID 08/27/2014 02/22/2015 Inactive metformin 500 mg tablet RxNorm: 625398 1 Tablet(s) PO TID 08/1012/07/2014 Inactive metformin 500 mg tablet RxNorm: 500700 1 Tablet(s) PO TID 08/1008/09/2014 Inactive Fish Oil 1,000 mg capsule RxNorm: 1 Capsule(s) PO daily No Start Date Active Protonix 40 mg tablet,delayed release RxNorm: 915833 1 Tablet(s) PO QAM No Start Date Active furosemide 40 mg tablet RxNorm: 587118 1 Tablet(s) PO daily No Start Date Active pen needle, diabetic 31 gauge x 1/6" RxNorm: Miscellaneous No Start Date Active nitroglycerin 0.4 mg sublingual tablet RxNorm: 008277 1 Tablet(s) SL as needed chest pain No Start Date Active amlodipine 5 mg tablet RxNorm: 701725 1 Tablet(s) PO daily No Start Date Active Entresto 24 mg-26 mg tablet RxNorm: 4962389 1 Tablet(s) PO BID No Start Date Active aspirin 81 mg chewable tablet RxNorm: 593865 1 Tablet(s) PO daily No Start Date 06/02/2017 Inactive Eliquis 5 mg tablet RxNorm: 1407202 1 Tablet(s) PO BID No Start Date 01/26/2018 Inactive bisoprolol-hydrochlorothiazide oral RxNorm: 44816 oral No Start Date 08/26/2014 Inactive levothyroxine 50 mcg tablet RxNorm: 917758 1 Tablet(s) PO daily No Start Date 01/30/2015 Inactive potassium chloride ER 20 mEq tablet,extended release RxNorm: 838116 1 Tablet(s) PO daily No Start Date 06/21/2017 Inactive digoxin 250 mcg tablet RxNorm: 705415 1 Tablet(s) PO daily No Start Date 01/26/2018 Inactive Invokana 100 mg tablet RxNorm: 0023138 1 Tablet(s) PO daily No Start Date 12/11/2014 Inactive tramadol 50 mg tablet RxNorm: 932574 1 Tablet(s) PO TID as needed No Start Date 03/23/2018 Inactive Victoza 3-Dariusz 0.6 mg/0.1 mL (18 mg/3 mL) subcutaneous pen injector RxNorm: 001489 0.6 Milligram(s) SQ daily x2 weeks, then 1.2 mg SQ daily No Start Date 12/01/2015 Inactive Effient 10 mg tablet RxNorm: 204247 1 Tablet(s) PO QAM No Start Date 01/26/2018 Inactive Zetia 10 mg tablet RxNorm: 234732 1 Tablet(s) PO BID No Start Date 03/18/2016 Inactive metoprolol succinate ER 100 mg tablet,extended release 24 hr RxNorm: 600216 1 Tablet(s) PO daily No Start Date 2017 Inactive gabapentin 300 mg capsule RxNorm: 625165 1 Capsule(s) PO BID No Start Date 08/13/2015 Inactive Lasix 40 mg tablet RxNorm: 563314 1 Tablet(s) PO BID No Start Date 04/14/2017 Inactive Coreg 3.125 mg tablet RxNorm: 437230 1 Tablet(s) PO BID with meals No [...] shipped to [facility] Follow Up 03/19/2017 stress test and then shipped to [place] diabetes mellitus 02/03/2017 headache 01/07/2017 diabetes mellitus 12/17/2016 diabetes mellitus 09/14/2016 diabetes mellitus 06/18/2016 medication follow up 04/16/2016 back pain 03/19/2016 back pain 11/14/2015 back pain 08/14/2015 diabetes mellitus 07/17/2015 Hospital Follow Up 03/25/2015 diabetes mellitus 12/04/2014 diabetes mellitus 08/14/2014 Results Observation Observation Code Item Item Code Result Date Culture Urine [id number] URINE CULTURE SEE NOTES 02/28/2018 Urine Culture [...] 28.8 pg 02/24/2018 Cbc With Differential Ord2 Becker% 5.7 % 02/24/2018 Cbc With Differential Ord2 [...] 1.57 K/ul 02/24/2018 Cbc With Differential Ord2 Becker ABS# 0.4 K/ul 02/24/2018 Cbc With Differential Ord2 Eos ABS# 0.1 K/ul 02/24/2018 Cbc With Differential Ord2 Baso ABS# 0.0 K/ul 02/24/2018 Comp Metabolic Mle261 NA 138 mEq/L 02/24/2018 Comp Metabolic Azv443 K 4.4 mEq/L 02/24/2018 Comp Metabolic Rnf637 CL 100 mEq/L 02/24/2018 Comp Metabolic Ecv524 CO2 27.0 mEq/L 02/24/2018 Comp Metabolic Nag183 ANION GAP 15 02/24/2018 Comp Metabolic Aji236 GLUCOSE 98 mg/dL 02/24/2018 Comp Metabolic Ikf814 Creat 1.0 mg/dL 02/24/2018 Comp Metabolic Tlr612 eGFR 55 ml/min/1.73m2 02/24/2018 Comp Metabolic Wta030 BUN 25 mg/dL 02/24/2018 Comp Metabolic Wes801 B/C Ratio 24.3 Ratio 02/24/2018 Comp Metabolic Xna250 CALCIUM 9.4 mg/dL 02/24/2018 Comp Metabolic Kzz334 ALK PHOS 46 U/L 02/24/2018 Comp Metabolic Uet067 AST(SGOT) 13 U/L 02/24/2018 Comp Metabolic Nbg250 ALT(SGPT) 12 U/L 02/24/2018 Comp Metabolic Tdq129 BILI T 0.4 mg/dL 02/24/2018 Comp Metabolic Rqv273 ALBUMIN 4.5 g/dL 02/24/2018 Comp Metabolic Vtu283 TPRO 6.6 g/dL 02/24/2018 Comp Metabolic Uop912 GLOB 2.1 g/dL 02/24/2018 Comp Metabolic Yxq981 A/G Ratio 2.1 Ratio 02/24/2018 Comp Metabolic Bjr398 Osmo 280 mOsmo 02/24/2018 Culture Urine [id number] URINE CULTURE SEE NOTES 02/11/2018 Culture Urine [id number] Continued Results 02/11/2018 Urine Culture Ucult Complete >100,000 col/ml aerobic growth sent to ref lab 02/08/2018 %Hba1C Iiu536 % HbA1c 55759-8 6.8 % 01/12/2018 %Hba1C Yyp892 Gluc Ave 148 mg/dL 01/12/2018 Metabolic Ord15 [...] 89.9 fl 01/11/2018 Cbc With Differential Ord2 Becker% 7.8 % 01/11/2018 Cbc With Differential Ord2 [...] 1.70 K/ul 01/11/2018 Cbc With Differential Ord2 Becker ABS# 0.4 K/ul 01/11/2018 Cbc With Differential Ord2 Eos ABS# 0.1 K/ul 01/11/2018 Cbc With Differential Ord2 Baso ABS# 0.0 K/ul 01/11/2018 Magnesium Ord90 Mag 1.7 mg/dL 01/11/2018 Test(s) Not Perfromed [id number] Test(s) Not Performed Test(s) Not Performed. See Below: 09/20/2017 Test(s) Not Perfromed [id number] TEST NAME BNP 09/20/2017 Test(s) Not Perfromed [id number] Rejection Reason Patient Refused due to lack of coving diganosis 09/20/2017 Test(s) Not Perfromed [id number] COMMENT Dorita Notified 09/20 Test(s) Not Perfromed [id number] [employer] Miguel Mclaughlin 2017 B Type Natriuretic Peptide Qdj0791 B-OUTPATIENT RECEPTIONIST 889.00 pg/ml 2017 Cbc With Differential Ord2 WBC 5.72 K/ul 09/20/2017 Cbc With Differential Ord2 RBC 3.88 M/ul 09/20/2017 Cbc With Differential Ord2 HGB 11.2 g/dl 09/20/2017 Cbc With Differential Ord2 Neut% 62.4 % 09/20/2017 Cbc With Differential Ord2 HCT 35.0 % 09/20/2017 Cbc With Differential Ord2 Lymph% 29.4 % 09/20/2017 Cbc With Differential Ord2 MCV 90.2 fl 09/20/2017 Cbc With Differential Ord2 Becker% 5.6 % 09/20/2017 Cbc With Differential Ord2 [...] 1.68 K/ul 09/20/2017 Cbc With Differential Ord2 Becker ABS# 0.3 K/ul 09/20/2017 Cbc With Differential Ord2 Eos ABS# 0.1 K/ul 09/20/2017 Cbc With Differential Ord2 Baso ABS# 0.0 K/ul 09/20/2017 %Hba1C Isr287 % HbA1c 77861-9 7.9 % 09/20/2017 %Hba1C Tyw830 Gluc Ave 180 mg/dL 09/20/2017 Magnesium Ord90 [...] 28.3 pg 07/07/2017 Cbc With Differential Ord2 Becker% 7.9 % 07/07/2017 Cbc With Differential Ord2 [...] 1.34 K/ul 07/07/2017 Cbc With Differential Ord2 Becker ABS# 0.4 K/ul 07/07/2017 Cbc With Differential Ord2 Eos ABS# 0.1 K/ul 07/07/2017 Cbc With Differential Ord2 Baso ABS# 0.0 K/ul 07/07/2017 Comp Metabolic Qzm177 NA 142 mEq/L 07/07/2017 Comp Metabolic Ryu900 K 4.3 mEq/L 07/07/2017 Comp Metabolic Xws524 CL 105 mEq/L 07/07/2017 Comp Metabolic Aul439 CO2 28.0 mEq/L 07/07/2017 Comp Metabolic Ilj910 ANION GAP 13 07/07/2017 Comp Metabolic Vit006 GLUCOSE 197 mg/dL 07/07/2017 Comp Metabolic Mqu677 Creat 1.1 mg/dL 07/07/2017 Comp Metabolic Qup206 eGFR 51 ml/min/1.73m2 07/07/2017 Comp Metabolic Bcv814 BUN 21 mg/dL 07/07/2017 Comp Metabolic Oac356 B/C Ratio 18.9 Ratio 07/07/2017 Comp Metabolic Ybw584 CALCIUM 8.9 mg/dL 07/07/2017 Comp Metabolic Lkc832 ALK PHOS 51 U/L 07/07/2017 Comp Metabolic Yht913 AST(SGOT) 11 U/L 07/07/2017 Comp Metabolic Odx349 ALT(SGPT) 11 U/L 07/07/2017 Comp Metabolic Isj412 BILI T 0.3 mg/dL 07/07/2017 Comp Metabolic Gjg201 ALBUMIN 4.2 g/dL 07/07/2017 Comp Metabolic Pkh899 TPRO 6.0 g/dL 07/07/2017 Comp Metabolic Mhr500 GLOB 1.8 g/dL 07/07/2017 Comp Metabolic Sug061 A/G Ratio 2.3 Ratio 07/07/2017 Comp Metabolic Cpz762 Osmo 292 mOsmo 07/07/2017 Digoxin Ord9 DIGOXIN 1.3 NG/ML 07/07/2017 Tsh Ord6 TSH (3rd IS) 2.19 uIU/mL 07/07/2017 B Type Natriuretic Peptide Rho1447 B-OUTPATIENT RECEPTIONIST 801.00 pg/ml 2017 Culture Urine [id number] URINE CULTURE SEE NOTES 04/19/2017 Culture Urine [id number] Continued Results 04/19/2017 Urine Culture Ucult Complete >100,000 col/ml aerobic growth sent to ref lab 04/16/2017 Comp Metabolic Osb483 NA 140 mEq/L 01/26/2017 Comp Metabolic Zdd707 K 4.6 mEq/L 01/26/2017 Comp Metabolic Yvj094 CL 102 mEq/L 01/26/2017 Comp Metabolic Thj261 CO2 28.0 mEq/L 01/26/2017 Comp Metabolic Roz468 ANION GAP 15 01/26/2017 Comp Metabolic Htz383 GLUCOSE 173 mg/dL 01/26/2017 Comp Metabolic Jnq221 Creat 1.0 mg/dL 01/26/2017 Comp Metabolic Wsp989 eGFR 56 ml/min/1.73m2 01/26/2017 Comp Metabolic Dga235 BUN 23 mg/dL 01/26/2017 Comp Metabolic Gpc008 B/C Ratio 22.5 Ratio 01/26/2017 Comp Metabolic Odk293 CALCIUM 9.4 mg/dL 01/26/2017 Comp Metabolic Uog545 ALK PHOS 52 U/L 01/26/2017 Comp Metabolic Kwk913 AST(SGOT) 12 U/L 01/26/2017 Comp Metabolic Hkq278 ALT(SGPT) 12 U/L 01/26/2017 Comp Metabolic Oea237 BILI T 0.5 mg/dL 01/26/2017 Comp Metabolic Lgl946 ALBUMIN 4.4 g/dL 01/26/2017 Comp Metabolic Oxi399 TPRO 6.5 g/dL 01/26/2017 Comp Metabolic Exd860 GLOB 2.1 g/dL 01/26/2017 Comp Metabolic Ezw595 A/G Ratio 2.1 Ratio 01/26/2017 Comp Metabolic Tgl487 Osmo 287 mOsmo 01/26/2017 Cbc With Differential [...] 29.2 pg 01/26/2017 Cbc With Differential Ord2 Becker% 4.9 % 01/26/2017 Cbc With Differential Ord2 [...] 1.75 K/ul 01/26/2017 Cbc With Differential Ord2 Becker ABS# 0.4 K/ul 01/26/2017 Cbc With Differential Ord2 Eos ABS# 0.1 K/ul 01/26/2017 Cbc With Differential Ord2 Baso ABS# 0.0 K/ul 01/26/2017 %Hba1C Ekf123 % HbA1c 72178-3 7.8 % 01/26/2017 %Hba1C Jzj782 Gluc Ave 177 mg/dL 01/26/2017 Lipid Ord30 CHOL 239 mg/dL 01/26/2017 Lipid Ord30 HDL 40.0 mg/dl 01/26/2017 Lipid Ord30 TRIG 325 mg/dL 01/26/2017 Lipid Ord30 LDL 134 mg/dL 01/26/2017 Lipid Ord30 C/HDL 6.0 Ratio 01/26/2017 Free T4 Env874 FREE T4 0.95 ng/dL 01/26/2017 Tsh Ord6 [...] Metabolic Ord15 CALCIUM 9.0 mg/dL 09/08/2016 %Hba1C Kyr544 % HbA1c 79213-6 7.5 % 09/08/2016 %Hba1C Akc190 Gluc Ave 169 mg/dL 09/08/2016 Tsh Ord6 hTSH II 2.64 uIU/mL 03/13/2016 %Hba1C Fmb804 % HbA1c 97768-4 8.2 % 03/13/2016 %Hba1C Tla619 Gluc Ave 189 mg/dL 03/13/2016 Lipid Ord30 CHOL 233 mg/dL 03/13/2016 Lipid Ord30 HDL 46.0 mg/dl 03/13/2016 Lipid Ord30 TRIG 276 mg/dL 03/13/2016 Lipid Ord30 LDL 132 mg/dL 03/13/2016 Lipid Ord30 C/HDL 5.1 Ratio 03/13/2016 Free T4 Vop639 FREE T4 0.94 ng/dL 03/13/2016 Cbc With [...] 29.5 % 03/13/2016 Cbc With Differential Ord2 Becker% 6.1 % 03/13/2016 Cbc With Differential Ord2 [...] 1.63 K/ul 03/13/2016 Cbc With Differential Ord2 Becker ABS# 0.3 K/ul 03/13/2016 Cbc With Differential Ord2 Eos ABS# 0.1 K/ul 03/13/2016 Cbc With Differential Ord2 Baso ABS# 0.0 K/ul 03/13/2016 Comp Metabolic Sdy038 NA 139 mEq/L 03/13/2016 Comp Metabolic Jty756 K 4.3 mEq/L 03/13/2016 Comp Metabolic Szy120 CL 103 mEq/L 03/13/2016 Comp Metabolic Dje859 CO2 28.0 mEq/L 03/13/2016 Comp Metabolic Ekw857 ANION GAP 12 03/13/2016 Comp Metabolic Ozp581 GLUCOSE 200 mg/dL 03/13/2016 Comp Metabolic Ixc735 Creat 0.9 mg/dL 03/13/2016 Comp Metabolic Vek444 eGFR 69 ml/min/1.73m2 03/13/2016 Comp Metabolic Hgo664 BUN 19 mg/dL 03/13/2016 Comp Metabolic Byc865 B/C Ratio 22.4 Ratio 03/13/2016 Comp Metabolic Xsv142 CALCIUM 9.0 mg/dL 03/13/2016 Comp Metabolic Bbx710 ALK PHOS 57 U/L 03/13/2016 Comp Metabolic Uwc158 AST(SGOT) 13 U/L 03/13/2016 Comp Metabolic Feh639 ALT(SGPT) 16 U/L 03/13/2016 Comp Metabolic Arm295 BILI T 0.4 mg/dL 03/13/2016 Comp Metabolic Ttq404 ALBUMIN 4.2 g/dL 03/13/2016 Comp Metabolic Mzh379 TPRO 6.3 g/dL 03/13/2016 Comp Metabolic Arl689 GLOB 2.1 g/dL 03/13/2016 Comp Metabolic Tlp609 A/G Ratio 2.0 Ratio 03/13/2016 Comp Metabolic Ehv063 Osmo 285 mOsmo 03/13/2016 %Hba1C Jjg766 % HbA1c 78885-9 8.3 % 11/14/2015 %Hba1C Opy126 Gluc Ave 192 mg/dL 11/14/2015 Lipid Ord30 CHOL 210 mg/dL 07/19/2015 Lipid Ord30 HDL 43.0 mg/dl 07/19/2015 Lipid Ord30 TRIG 311 mg/dL 07/19/2015 Lipid Ord30 LDL 105 mg/dL 07/19/2015 Lipid Ord30 C/HDL 4.9 Ratio 07/19/2015 %Hba1C Byu534 % HbA1c 44335-2 7.6 % 07/19/2015 %Hba1C Sib254 Gluc Ave 171 mg/dL 07/19/2015 Cbc With [...] 28.8 pg 07/19/2015 Cbc With Differential Ord2 Becker% 6.1 % 07/19/2015 Cbc With Differential Ord2 [...] 1.63 K/ul 07/19/2015 Cbc With Differential Ord2 Becker ABS# 0.3 K/ul 07/19/2015 Cbc With Differential Ord2 Eos ABS# 0.1 K/ul 07/19/2015 Cbc With Differential Ord2 Baso ABS# 0.0 K/ul 07/19/2015 Cbc With Differential Ord2 New Analyzer Notice Please note new ref ranges starting 03-27-2015 due to implemntation of new five part differential hematolgy analyzer. 07/19/2015 Comp Metabolic Kmq007 NA 138 mEq/L 07/19/2015 Comp Metabolic Sth364 K 4.3 mEq/L 07/19/2015 Comp Metabolic Tsi559 CL 100 mEq/L 07/19/2015 Comp Metabolic Lqy013 CO2 33.0 mEq/L 07/19/2015 Comp Metabolic Oed800 ANION GAP 9 07/19/2015 Comp Metabolic Qjw957 GLUCOSE 149 mg/dL 07/19/2015 Comp Metabolic Aga638 Creat 0.9 mg/dL 07/19/2015 Comp Metabolic Hss458 eGFR 62 ml/min/1.73m2 07/19/2015 Comp Metabolic Byw634 BUN 19 mg/dL 07/19/2015 Comp Metabolic Prm248 B/C Ratio 20.2 Ratio 07/19/2015 Comp Metabolic Qod079 CALCIUM 9.5 mg/dL 07/19/2015 Comp Metabolic Bfy426 ALK PHOS 52 U/L 07/19/2015 Comp Metabolic Hpf279 AST(SGOT) 15 U/L 07/19/2015 Comp Metabolic Ipr656 ALT(SGPT) 14 U/L 07/19/2015 Comp Metabolic Kna816 BILI T 0.5 mg/dL 07/19/2015 Comp Metabolic Fuc349 ALBUMIN 4.4 g/dL 07/19/2015 Comp Metabolic Agn947 TPRO 6.4 g/dL 07/19/2015 Comp Metabolic Rgf283 GLOB 2.0 g/dL 07/19/2015 Comp Metabolic Slk684 A/G Ratio 2.2 Ratio 07/19/2015 Comp Metabolic Src203 Osmo 281 mOsmo 07/19/2015 Free T4 Tqw714 FREE T4 0.92 ng/dL 07/19/2015 Tsh Ord6 hTSH II 1.95 uIU/mL 07/19/2015 Microalbumin Nvw423 MicroAlb 0.4 mg/dL 07/19/2015 Comp Metabolic Xph043 NA 137 mEq/L 12/04/2014 Comp Metabolic Kjl965 K 4.0 mEq/L 12/04/2014 Comp Metabolic Rmo225 CL 100 mEq/L 12/04/2014 Comp Metabolic Usr795 CO2 29.0 mEq/L 12/04/2014 Comp Metabolic Dfz231 ANION GAP 12 12/04/2014 Comp Metabolic And448 GLUCOSE 171 mg/dL 12/04/2014 Comp Metabolic Hkh186 Creat 1.0 mg/dL 12/04/2014 Comp Metabolic Hkx275 eGFR 60 ml/min/1.73m2 12/04/2014 Comp Metabolic Nmt601 BUN 25 mg/dL 12/04/2014 Comp Metabolic Hlx928 B/C Ratio 25.8 Ratio 12/04/2014 Comp Metabolic Osw825 CALCIUM 9.4 mg/dL 12/04/2014 Comp Metabolic Ijh538 ALK PHOS 60 U/L 12/04/2014 Comp Metabolic Ydw603 AST(SGOT) 13 U/L 12/04/2014 Comp Metabolic Otg985 ALT(SGPT) 17 U/L 12/04/2014 Comp Metabolic Onm320 BILI T 0.4 mg/dL 12/04/2014 Comp Metabolic Qry257 ALBUMIN 4.4 g/dL 12/04/2014 Comp Metabolic Thi515 TPRO 6.9 g/dL 12/04/2014 Comp Metabolic Fwh849 GLOB 2.5 g/dL 12/04/2014 Comp Metabolic Tpy660 A/G Ratio 1.8 Ratio 12/04/2014 Comp Metabolic Itg395 Osmo 282 mOsmo 12/04/2014 Tsh Ord6 hTSH II 1.78 uIU/mL 12/04/2014 %Hba1C Hvk553 % HbA1c 16826-2 8.3 % 12/04/2014 %Hba1C Igp615 Gluc Ave 192 mg/dL 12/04/2014 Free T4 Qnc743 FREE T4 0.85 ng/dL 12/04/2014 Lipid Ord30 [...] Codes Date URINALYSIS NONAUTO W/O SCOPE CPT-4: 49380 02/24/2018 URINALYSIS NONAUTO W/O SCOPE CPT-4: 13367 02/07/2018 ADMIN INFLUENZA VIRUS VAC CPT-4: G0008 11/25/2017 FLU VAC NO PRSV 4 ANABELLE 3 YRS+ CPT-4: 91040 11/25/2017 GLUC MONITOR CONT PHYS I&R CPT-4: 59690 10/26/2017 GLUCOSE MONITORING CONT CPT-4: 89542 10/11/2017 URINALYSIS NONAUTO W/O SCOPE CPT-4: 30911 04/15/2017 FLU VAC NO PRSV 4 ANABELLE 3 YRS+ CPT-4: 38296 12/17/2016 ADMIN INFLUENZA VIRUS VAC CPT-4: G0008 12/17/2016 FLU VACC PRSV FREE INC ANTIG Formatting Model/CDA Sections, Assigned to/Nery Daniels CPT-4: [id number] 11/14/2015 ADMIN INFLUENZA VIRUS VAC CPT-4: G0008 11/14/2015 ADMIN INFLUENZA VIRUS VAC Formatting Model/CDA Sections, Assigned to/Nery Daniels CPT-4: [id number] 12/04/2014 FLU VACC 4 ANABELLE 3 YRS PLUS IM SNOMED CT: [id number] CPT-4: 92175 12/04/2014 Vital Signs Date Vital 02/24/2018 Blood Pressure 1: 130/62 Code : 8480-6 BMI: 28.9 Code : 32369-6 Heart Rate 1 : 57 bpm Height: 5' SpO2: 99% Weight: 148 lbs 01/27/2018 Blood Pressure 1: 142/70 Code : 8480-6 BMI: 29.5 Code : 64409-6 Heart Rate 1 : 61 bpm Height: 5' SpO2: 99% Weight: 151 lbs 11/25/2017 Blood Pressure 1: 148/72 Code : 8480-6 BMI: 30.9 Code : 50346-6 Heart Rate 1 : 62 bpm Height: 5' SpO2: 98% Weight: 158 lbs 10/26/2017 Blood Pressure 1: 156/74 Code : 8480-6 BMI: 31.2 Code : 91909-2 Heart Rate 1 : 71 bpm Height: 5' SpO2: 98% Weight: 160 lbs 10/11/2017 Blood Pressure 1: 128/70 Code : 8480-6 BMI: 30.9 Code : 41631-9 Heart Rate 1 : 70 bpm Height: 5' SpO2: 95% Weight: 158 lbs 09/22/2017 Blood Pressure 1: 110/52 Code : 8480-6 BMI: 30.9 Code : 16786-4 Heart Rate 1 : 72 bpm Height: 5' SpO2: 99% Weight: 158 lbs 07/06/2017 Blood Pressure 1: 120/85 Code : 8480-6 BMI: 31.4 Code : 42822-7 Heart Rate 1 : 74 bpm Height: 5' SpO2: 92% Weight: 161 lbs 06/03/2017 Blood Pressure 1: 120/62 Code : 8480-6 BMI: 31.1 Code : 33725-4 Heart Rate 1 : 73 bpm Height: 5' SpO2: 99% Weight: 159 lbs 05/12/2017 Blood Pressure 1: 132/68 Code : 8480-6 BMI: 32.4 Code : 83368-1 Heart Rate 1 : 95 bpm Height: 5' SpO2: 97% Weight: 166 lbs 04/15/2017 Blood Pressure 1: 128/84 Code : 8480-6 BMI: 32.4 Code : 38402-4 Heart Rate 1 : 62 bpm Height: 5' SpO2: 97% Weight: 166 lbs 03/19/2017 Blood Pressure 1: 112/60 Code : 8480-6 BMI: 32.0 Code : 99105-2 Height: 5' Weight: 164 lbs 02/03/2017 Blood Pressure 1: 128/76 Code : 8480-6 BMI: 33.4 Code : 65923-8 Heart Rate 1 : 91 bpm Height: 5' SpO2: 99% Weight: 171 lbs 01/07/2017 Blood Pressure 1: 126/74 Code : 8480-6 BMI: 34.2 Code : 06049-8 Heart Rate 1 : 83 bpm Height: 5' SpO2: 97% Weight: 175 lbs 12/17/2016 Blood Pressure 1: 122/72 Code : 8480-6 BMI: 34.0 Code : 38352-4 Heart Rate 1 : 78 bpm Height: 5' SpO2: 97% Weight: 174 lbs 09/14/2016 Blood Pressure 1: 128/86 Code : 8480-6 BMI: 33.8 Code : 85628-0 Heart Rate 1 : 88 bpm Height: 5' SpO2: 96% Weight: 173 lbs 06/18/2016 Blood Pressure 1: 12274 Code : 8480-6 BMI: 34.8 Code : 24978-2 Heart Rate 1 : 78 bpm Height: 5' SpO2: 98% Weight: 178 lbs 04/16/2016 Blood Pressure 1: 134/68 Code : 8480-6 BMI: 35.0 Code : 91308-8 Heart Rate 1 : 67 bpm Height: 5' SpO2: 97% Weight: 179 lbs 03/19/2016 Blood Pressure 1: 132/74 Code : 8480-6 BMI: 34.6 Code : 30581-3 Heart Rate 1 : 74 bpm Height: 5' SpO2: 97% Weight: 177 lbs 11/14/2015 Blood Pressure 1: 132/70 Code : 8480-6 BMI: 35.2 Code : 60253-9 Heart Rate 1 : 68 bpm Height: 5' Weight: 180 lbs 08/14/2015 Blood Pressure 1: 122/74 Code : 8480-6 BMI: 33.8 Code : 94763-2 Heart Rate 1 : 73 bpm Height: 5' SpO2: 93% Weight: 173 lbs 07/17/2015 Blood Pressure 1: 138/78 Code : 8480-6 BMI: 34.0 Code : 56983-5 Heart Rate 1 : 85 bpm Height: 5' SpO2: 97% Weight: 174 lbs 03/25/2015 Blood Pressure 1: 130/78 Code : 8480-6 BMI: 33.2 Code : 63009-6 Heart Rate 1 : 77 bpm Height: 5' SpO2: 97% Weight: 170 lbs 12/04/2014 Blood Pressure 1: 120/74 Code : 8480-6 BMI: 35.4 Code : 71317-1 Heart Rate 1 : 67 bpm Height: 5' SpO2: 94% Weight: 181 lbs 5 oz 08/14/2014 Blood Pressure 1: 132/68 Code : 8480-6 BMI: 32.1 Code : 13963-4 Heart Rate 1 : 62 bpm Height: [...] data Encounters Encounter Performer Location Codes Date ([id number]) 44334 EST. PATIENT, LEVEL IV Diagnosis: Low back pain[ICD10: M54.5] Diagnosis: Dysuria[ICD10: R30.0] Diagnosis: Type 2 diabetes mellitus with hyperglycemia[ICD10: E11.65] Claudia Nicole MD, [facility] CPT-4: 69869 02/24/2018 ([id number] 40670 EST. PATIENT, LEVEL IV Diagnosis: Type 2 diabetes mellitus with hyperglycemia[ICD10: E11.65] Diagnosis: Essential (primary) hypertension[ICD10: I10] Diagnosis: Major depressive disorder, recurrent, mild[ICD10: F33.0] Diagnosis: Generalized anxiety disorder[ICD10: F41.1] Claudia Nicole MD, [facility] CPT-4: 75557 01/27/2018 ([id number]) 67521 EST. PATIENT, LEVEL IV Diagnosis: Type 2 diabetes mellitus with hyperglycemia[ICD10: E11.65] Diagnosis: Essential (primary) hypertension[ICD10: I10] Diagnosis: Encounter for immunization[ICD10: Z23] Diagnosis: Carpal tunnel syndrome, left upper limb[ICD10: G56.02] Claudia Nicole MD, [facility] CPT-4: 54629 11/25/2017 ([id number]) 67222 EST. PATIENT, LEVEL III Diagnosis: Type 2 diabetes mellitus with hyperglycemia[ICD10: E11.65] [facility] CPT-4: 84830 10/26/2017 ([id number]) Miscellaneous no charge Diagnosis: Type 2 diabetes mellitus with hyperglycemia[ICD10: E11.65] [facility] CPT-4: 65880 10/18/2017 ([id number]) 31298 EST. 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 PATIENT, LEVEL IV Diagnosis: Type 2 diabetes mellitus with hyperglycemia[ICD10: E11.65] Diagnosis: Paroxysmal atrial fibrillation[ICD10: I48.0] Diagnosis: Essential (primary) hypertension[ICD10: I10] Mila Nicole MD, [facility] CPT-4: 66904 07/06/2017 ([id number]) 11015 EST. PATIENT, LEVEL IV Diagnosis: Essential (primary) hypertension[ICD10: I10] Diagnosis: Type 2 diabetes mellitus with hyperglycemia[ICD10: E11.65] Diagnosis: Paroxysmal atrial fibrillation[ICD10: I48.0] Claudia Nicole MD, [facility] CPT-4: 47976 06/03/2017 29131 EST. PATIENT, LEVEL III Diagnosis: Generalized anxiety disorder[ICD10: F41.1] Diagnosis: Major depressive disorder, recurrent, moderate[ICD10: F33.1] Diagnosis: Paroxysmal tachycardia, unspecified[ICD10: I47.9] Gardenia Nicole MD, [facility] CPT-4: 27142 05/12/2017 ([id number]) 95673 EST. PATIENT, LEVEL IV Diagnosis: Essential (primary) hypertension[ICD10: I10] Diagnosis: Cough[ICD10: R05] Diagnosis: Dysuria[ICD10: R30.0] Mila Nicole MD, [facility] CPT-4: 47631 04/15/2017 ([id number]) 10096 EST. PATIENT, LEVEL IV Diagnosis: Type 2 diabetes mellitus with hyperglycemia[ICD10: E11.65] Diagnosis: Essential (primary) hypertension[ICD10: I10] Mila Nicole MD, [facility] CPT-4: 36754 03/19/2017 ([id number]) 65820 EST. PATIENT, LEVEL III Diagnosis: Type 2 diabetes mellitus with hyperglycemia[ICD10: E11.65] Mila Nicole MD , [facility] CPT-4: 08438 02/03/2017 11112 EST. PATIENT, LEVEL IV Diagnosis: Generalized anxiety disorder[ICD10: F41.1] Diagnosis: Type 2 diabetes mellitus with hyperglycemia[ICD10: E11.65] Diagnosis: Essential (primary) hypertension[ICD10: I10] Gardenia Nicole MD, [facility] CPT-4: 89713 01/07/2017 ([id number]) 58257 EST. PATIENT, LEVEL III Diagnosis: Type 2 diabetes mellitus with hyperglycemia[ICD10: E11.65] Diagnosis: Encounter for immunization[ICD10: Z23] Mila Nicole MD [facility] CPT-4: 04538 12/17/2016 ([id number]) 49884 EST. PATIENT, LEVEL IV Diagnosis: Type 2 diabetes mellitus with hyperglycemia[ICD10: E11.65] Diagnosis: Essential (primary) hypertension[ICD10: I10] Diagnosis: Major depressive disorder, recurrent, mild[ICD10: F33.0] Mila Nicole MD, [facility] CPT-4: 70724 09/14/2016 ([id number]) 56430 EST. 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 PATIENT, LEVEL IV Diagnosis: Type 2 diabetes mellitus with hyperglycemia[ICD10: E11.65] Diagnosis: Essential (primary) hypertension[ICD10: I10] Mila Nicole MD, [facility] CPT-4: 09899 04/16/2016 ([id number]) 23005 EST. 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 PATIENT, LEVEL IV Diagnosis: Type 2 diabetes mellitus with hyperglycemia[ICD10: E11.65] Diagnosis: Encounter for immunization[ICD10: Z23] Diagnosis: Essential (primary) hypertension[ICD10: I10] Mila Nicole MD, [facility] CPT-4: 05996 11/14/2015 ([id number]) 03879 EST. PATIENT, LEVEL IV Diagnosis: Type 2 diabetes mellitus with hyperglycemia[ICD10: E11.65] Diagnosis: Essential (primary) hypertension[ICD10: I10] Diagnosis: Low back pain[ICD10: M54.5] Mila Nicole MD, [facility] CPT- 4: 81193 08/14/2015 ([id number]) 76065 EST. PATIENT, LEVEL IV Diagnosis: Type 2 diabetes mellitus with hyperglycemia[ICD10: E11.65] Diagnosis: Essential (primary) hypertension[ICD10: I10] Diagnosis: Hypothyroidism, unspecified[ICD10: E03.9] [facility] CPT-4: 03465 07/17/2015 ([id number]) 99803 EST. PATIENT, LEVEL IV Diagnosis: Essential (primary) hypertension[ICD10: I10] Diagnosis: Type 2 diabetes mellitus with hyperglycemia[ICD10: E11.65] Diagnosis: Headache[ICD10: R51] [facility] CPT-4: 91819 03/25/2015 ([id number]) 10944 EST. PATIENT, LEVEL IV Diagnosis: ESSENTIAL HYPERTENSION[ICD9: 401.9] Diagnosis: DIABETES TYPE II[ICD9: 250.00] Diagnosis: Aortic stenosis[ICD9: 424.1] [facility] CPT- 4: 45693 12/04/2014 ([id number]) OFFICE VISIT, NEW - LEVEL 4 Diagnosis: ESSENTIAL HYPERTENSION[ICD9: 401.9] Diagnosis: Diabetes mellitus out of control[ICD9: 250.02] [facility] CPT-4: 23620 08/14/2014 Plan of Care Planned Activity Notes Codes Status Date Visit Plan: Low back pain-xray lumbar spine Dysuria- improved-will culture urine XH-actcxp-li changes today 02/24/2018 Appointment: Claudia Pruitt WPtel: [address] [place], [place] [phone] (15 min) Moderate 02/24/2018 Patient Education: Patient [...] medications. 01/27/2018 [facility] [phone] [phone] (15 min) Moderate 01/27/2018 Patient Education: Patient [...] any worse 11/25/2017 App[facility]ment[facility] [phone] [phone] (15 min) Moderate 11/25/2017 Patient Education: Patient Medication Summary Completed 11/25/2017 [phone] ([facility] Moderate 10/28/2017 Visit [...] appt. 10/26/2017 Appointment: Claudia Pruitt WPtel: [phone] [phone] (15 min) Moderate 10/26/2017 Patient Education: [...] plan. 10/11/2017 App[facility]ment: [facility] [phone] [phone] (30 min) Complex 10/11/2017 Patient Education: [...] Completed 09/22/2017 Appointment: Mila Nicole WPtel: [phone] [facility] [place] (15 min) Moderate 09/13/2017 Appointment: Mila Nicole WPtel: [phone] [facility] (15 min) Moderate 09/07/2017 Visit [...] uncontrolled. 07/06/2017 App[facility]ment: [facility] [phone] [facility] [place] (15 min) Moderate 07/06/2017 Patient Education: Patient Medication Summary Completed 07/06/2017 Appointment: Mila Nicole WPtel: [phone] [facility] [place] (15 min) Moderate 06/07/2017 Visit Plan: [...] controlled. 06/03/2017 App[facility]ment: [facility] [phone] [phone] (30 min) Complex 06/03/2017 Patient Education: [...] in current treatment plan 05/12/2017 App[facility]ment: Garden[facility] hSah [facility] [phone] [phone] (30 min) Complex 05/12/2017 Patient Education: [...] Entresto medication. 04/15/2017 Appointment: Mila Nicole WPtel: [facility] (15 min) Moderate 04/15/2017 Patient Education: Patient [...] units daily. 03/19/2017 Appointment: Mila Nicole WPtel: [facility] (15 min) Moderate 03/19/2017 Patient Education: Patient Medication Summary Completed 03/19/2017 App[facility]ment: [facility] [phone] [facility] (15 min) Moderate 02/24/2017 Visit [...] HS 02/03/2017 Appointment: Mila Nicole WPtel: [phone] [facility] (15 min) Moderate 02/03/2017 Patient Education: Patient [...] concerns. 01/07/2017 Appointment: Gardenia Shah WPtel: [phone] [facility] [place] (30 min) Complex 01/07/2017 Patient [...] to allow for greater blood glucose control. [id number], 02/2018 junior nordisk 12/17/2016 Appointment: [facility] [phone] [facility] [place] (15 min) Moderate 12/17/2016 Patient Education: Patient Medication Summary Completed 12/17/2016 Patient Education: Obesity Completed 12/17/2016 Appointment: [facility] [phone] [facility] [place] (15 min) Moderate 12/14/2016 [...] current medications. 09/14/2016 Appointment: [facility] [phone] [facility] [place] (15 min) Moderate 09/14/2016 [...] home. 06/18/2016 App[facility]ment: [facility] [phone] [facility] (15 min) Moderate 06/18/2016 Patient [...] home. 04/16/2016 App[facility]ment: [facility] [phone] [facility] (15 min) Moderate 04/16/2016 Patient [...] gabapentin 03/19/2016 Appointment: Mila Nicole WPtel: [phone] [facility] (15 min) Moderate 03/19/2016 Patient Education: Patient [...] at home. 11/14/2015 Appointment: Mila Nicole WPtel: [phone] [facility] [place] (15 min) Moderate 11/14/2015 Patient Education: [...] check Hgba1c 07/17/2015 Appointment: [facility] [phone] [facility] ([facility] min) Moderate 07/17/2015 Patient [...] Hypertension Completed 03/25/2015 Appointment: Mila Nicole WPtel: [facility] (15 min) Moderate 01/14/2015 Visit [...] of control. 12/04/2014 Appointment: [facility] [phone] [facility] (15 min) Moderate 12/04/2014 Patient [...] control. 08/14/2014 Appointment: [facility] [phone] [facility] [place] ([place] New Patient 08/14/2014 Patient Education: Patient Medication Summary Completed 08/14/2014 Patient Education: Hypertension Completed 08/14/2014 Instructions Comment INCREASE BASAGLAR TO 18 UNITS DAILY increase [...] start on lantus 10 units at HS Decrease victoza back to your previous dose [...] situational exposure. No change in current medications. tylenol 2 pills three times daily x [...] do not improve or if any worse . Diabetes Mellitus - controlled - per [...] are starting to become less controlled. . DM-patient is here for placement of [...] pain-xray lumbar spine Dysuria- improved-will culture urine JV-syohod-tk changes today I think the entresto is causing you [...] change in blood pressure readings at home. Monitor your blood pressure at home and [...] Back pain - gabapentin for back pain. INCREASE BASAGLAR TO 18 UNITS DAILY . [...] to allow for greater blood glucose control. [id number], 02/2018 junior nordisk . Diabetes Mellitus - controlled - per [...] Peripheral neuropathy - continue with gabapentin . Hypertension - well controlled - continue [...] based on previous levels of control. . Anxiety - the patient has [...] any changes in current treatment plan . Hypertension - well controlled - continue [...]
--- OUTSIDE RECORDS SUMMARY | 2018-03-30 10:39 | XMS REPORT | CCD ---
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 Name Role Phone PP Unavailable CCM Unavailable Summary Purpose Interface Exchange Insurance Providers Payer name Policy type / Coverage type Covered green party ID Effective Begin Date Effective End Date WPS Medicare Part B Medicare Part B [id number] Unknown AARP Medicare Part B [id number] Unknown Family history Mother Diagnosis Age At [...] Unknown 3 08/14/[address]: 434562794 Never smoker 08/14/[address]: 073676914 Never drinks alcohol 08/14/2014 Allergies, Adverse Reactions, Alerts Substance Reaction Codes Entered Date Inactivated Date Status * OTHER REACTION - SEE ANSWER BOX Invokana, Victoza Unknown 07/2017 No Inactive Date Active Paxil has blurred vision RxNorm: 288034 08/14/2014 No Inactive Date Active Lipitor RxNorm: 00741 08/14/2014 No Inactive Date Active Past Medical [...] Instructions fluticasone 50 mcg/actuation nasal spray,suspension RxNorm: 3158345 INSTILL ONE SPRAY IN EACH NOSTRILTWICE A DAY 03/16/2018 10/11/2018 Active Generic For:FLONASE SPR 0.05% 03/16/2018 8:50:59 AM Keflex 500 mg capsule RxNorm: 366520 1 Capsule(s) PO TID 201702/10/2018 Inactive Keflex 500 mg capsule RxNorm: 220887 1 Capsule(s) PO TID 201702/20/2018 Inactive metoprolol succinate ER 200 mg tablet,extended release 24 hr RxNorm: 117923 1 Tablet(s) PO daily 01/27/2018 No Stop Date Active Eliquis 2.5 mg tablet RxNorm: 8457982 1 Tablet(s) PO BID 2017 No Stop Date Active digoxin 125 mcg tablet RxNorm: 975681 1 Tablet(s) PO daily No Stop Date Active Basaglar KwikPen U-100 Insulin 100 unit/mL (3 mL) subcutaneous RxNorm: 4331612 20 Unit(s) SQ daily 11/25/201705/23 Active UPDATE RX metformin 500 mg tablet RxNorm: 787599 1 Tablet(s) PO UD 1.5 in morning, noon and 1 at bedtime 10/28/2017 10/22/2018 Active Basaglar KwikPen U-100 Insulin 100 unit/mL (3 mL) subcutaneous RxNorm: 8679282 18 Unit(s) SQ daily 10/26/201711/24 Inactive UPDATE RX levothyroxine 50 mcg tablet RxNorm: 359992 TAKE 1 TABLET BY MOUTH ONCE DAILY 10/15/2017 06/11/2018 Active Generic For:SYNTHROID 50MCG TAB 10/15/2017 9:59:00 AM escitalopram 10 mg tablet RxNorm: 224950 1 Tablet(s) PO QPM 01/201809/16/2018 Active Generic For:LEXAPRO 5MG 01/07/2017 9:05:43 AM Basaglar KwikPen U-100 Insulin 100 unit/mL (3 mL) subcutaneous RxNorm: 7755227 15 Unit(s) SQ daily 09/22/201710/25 Inactive potassium chloride ER 20 mEq tablet,extended release RxNorm: 781545 1 Tablet(s) PO daily 06/22/2017 01/17/2018 Inactive Lantus Solostar U-100 Insulin 100 unit/mL (3 mL) subcutaneous pen RxNorm: 242770 10 Unit(s) SQ daily 06/08/2017 Inactive Basaglar KwikPen U-100 Insulin 100 unit/mL (3 mL) subcutaneous RxNorm: 0138135 10 Unit(s) SQ daily 06/08/201706/07 Inactive Basaglar KwikPen U-100 Insulin 100 unit/mL (3 mL) subcutaneous RxNorm: 7280792 10 Unit(s) SQ daily 06/08/201709/21 Inactive Lexapro 5 mg tablet RxNorm: 448690 1 Tablet(s) PO daily 201711/27/2017 Inactive Lexapro 5 mg tablet RxNorm: 237664 1 Tablet(s) PO daily 201705/31/2017 Inactive bisoprolol 5 mg-hydrochlorothiazide 6.25 mg tablet RxNorm: 147694 1 Tablet(s) PO BID 05/04/2017 06/02/2017 Inactive Keflex 500 mg capsule RxNorm: 510251 1 Capsule(s) PO QID 201704/21/2017 Inactive Lantus Solostar 100 unit/mL (3 mL) subcutaneous insulin pen RxNorm: 350451 10 Unit(s) SQ daily 02/03/2017 06/07/2017 Inactive levothyroxine 50 mcg tablet RxNorm: 508155 TAKE 1 TABLET BY MOUTH ONCE DAILY 02/01/2017 09/28/2017 Inactive Generic For:SYNTHROID 50MCG TAB 02/01/2017 9:20:59 AM gabapentin 600 mg tablet RxNorm: 971517 1 Capsule(s) PO TID 01/21/2018 Inactive Lexapro 5 mg tablet RxNorm: 675081 TAKE 1 TABLET BY MOUTH AT BEDTIME 01/07/2017 09/21/2017 Inactive Generic For:LEXAPRO 5MG 01/07/2017 9:05:43 AM Victoza 2-Dariusz 0.6 mg/0.1 mL (18 mg/3 mL) subcutaneous pen injector RxNorm: 727605 1.8 Milligram(s) SQ daily 12/17/201602/07 Inactive Victoza 3-Dariusz 0.6 mg/0.1 mL (18 mg/3 mL) subcutaneous pen injector RxNorm: 497633 Milligram(s) SQ 12/17/2016 02/07/2017 Inactive Zetia 10 mg tablet RxNorm: 839136 1 Tablet(s) PO daily 201611/11/2017 Inactive fluticasone 50 mcg/actuation nasal spray,suspension RxNorm: 3590135 [place] NASAL ONE SPRAY IN EACH NOSTRIL TWICE DAILY 09/28/2016 04/25/2017 Inactive Victoza 2-Dariusz 0.6 mg/0.1 mL (18 mg/3 mL) subcutaneous pen injector RxNorm: 035497 1.2 Milligram(s) SQ daily 09/14/201612/16 Inactive Lexapro 5 mg tablet RxNorm: 008042 1 Tablet(s) PO QHS 201612/12/2016 Inactive metformin 500 mg tablet RxNorm: 174634 1 Tablet(s) PO UD 1.5 in morning, noon and 1 at bedtime 09/08/2016 09/02/2017 Inactive glimepiride 4 mg tablet RxNorm: 842781 TAKE 1 TABLET BY MOUTH ONCE DAILY 07/31/2016 09/13/2016 Inactive Generic For:*AMARYL 4MG 07/31/2016 9:02:38 AM Victoza 2-Dariusz 0.6 mg/0.1 mL (18 mg/3 mL) subcutaneous pen injector RxNorm: 745507 1.2 Milligram(s) SQ daily 05/18/201609/13 Inactive Victoza 2-Dariusz 0.6 mg/0.1 mL (18 mg/3 mL) subcutaneous pen injector RxNorm: 887385 1.2 Milligram(s) SQ daily 04/16/201605/17 Inactive levothyroxine 50 mcg tablet RxNorm: 238044 TAKE 1 TABLET BY MOUTH ONCE DAILY 04/08/2016 12/03/2016 Inactive Generic For:SYNTHROID 50MCG TAB 04/08/2016 9:05:40 AM levothyroxine 50 mcg tablet RxNorm: 622529 1 Tablet(s) PO daily TAKE 1 TABLET BY MOUTH ONCE DAILY 04/08/2016 12/03/2016 Inactive Generic For:SYNTHROID 50MCG TAB N O T I C E PRESCRIPTION PREVIOUSLY AUTHORIZED BY DOCTOR:HENRY BAIG bisoprolol 5 mg-hydrochlorothiazide 6.25 mg tablet RxNorm: 571429 1 Tablet(s) PO BID 03/23/2016 03/17/2017 Inactive Victoza 2-Dariusz 0.6 mg/0.1 mL (18 mg/3 mL) subcutaneous pen injector RxNorm: 597100 0.6 Milligram(s) SQ daily 03/19/201604/15 Inactive Lexapro 5 mg tablet RxNorm: 447726 1 Tablet(s) PO QHS 201606/16/2016 Inactive gabapentin 600 mg tablet RxNorm: 986110 1 Capsule(s) PO TID 07/201601/26/2017 Inactive glimepiride 4 mg tablet RxNorm: 776312 1 Tablet(s) PO daily 06/05/2016 Inactive Victoza 3-Dariusz 0.6 mg/0.1 mL (18 mg/3 mL) subcutaneous pen injector RxNorm: 075016 0.6 Milligram(s) SQ daily x2 weeks, then 1.2 mg SQ daily 03/18/2016 Inactive metformin 500 mg tablet RxNorm: 646438 1 Tablet(s) PO UD 1.5 in morning, noon and 1 at bedtime 08/14/2015 08/07/2016 Inactive gabapentin 600 mg tablet RxNorm: 086398 1 Capsule(s) PO TID SHE IS ONLY TAKING 1 QD 08/14/2015 03/18/2016 Inactive fluticasone 50 mcg/actuation nasal spray,suspension RxNorm: 805110 [place] NASAL ONE SPRAY IN EACH NOSTRIL TWICE DAILY 07/26/2015 07/25/2015 Inactive fluticasone 50 mcg/actuation nasal spray,suspension RxNorm: 0124205 [place] NASAL ONE SPRAY IN EACH NOSTRIL TWICE DAILY 07/26/2015 02/20/2016 Inactive bisoprolol 5 mg-hydrochlorothiazide 6.25 mg tablet RxNorm: 808663 1 Tablet(s) PO daily 1 Tablet(s) PO BID 07/17/20152015 Inactive metformin 500 mg tablet RxNorm: 852132 1 Tablet(s) PO TID 1 Tablet(s) PO TID 07/17/2015 08/13/2015 Inactive Diflucan 100 mg tablet RxNorm: 511957 1 Tablet(s) PO daily 06/201507/21/2015 Inactive Zetia 10 mg tablet RxNorm: 813707 1 Tablet(s) PO daily 201506/03/2016 Inactive bisoprolol 5 mg-hydrochlorothiazide 6.25 mg tablet RxNorm: 077871 1 Tablet(s) PO BID 04/18/2015 07/16/2015 Inactive metformin 500 mg tablet RxNorm: 423571 1 Tablet(s) PO TID 03/0106/28/2015 Inactive glimepiride 4 mg tablet RxNorm: 698449 1 Tablet(s) PO daily 01/30/2015 Inactive levothyroxine 50 mcg tablet RxNorm: 283775 TAKE 1 TABLET BY MOUTH ONCE DAILY 01/31/2015 09/27/2015 Inactive Generic For:SYNTHROID 50MCG TAB N O T I C E PRESCRIPTION PREVIOUSLY AUTHORIZED BY DOCTOR:HENRY BIAG glimepiride 4 mg tablet RxNorm: 010315 1 Tablet(s) PO daily 07/29/2015 Inactive Invokana 100 mg tablet RxNorm: 8976737 1 Tablet(s) PO daily 07/16/2015 Inactive bisoprolol 5 mg-hydrochlorothiazide 6.25 mg tablet RxNorm: 819878 1 Tablet(s) PO BID 08/27/2014 02/22/2015 Inactive metformin 500 mg tablet RxNorm: 837647 1 Tablet(s) PO TID 08/1012/07/2014 Inactive metformin 500 mg tablet RxNorm: 960817 1 Tablet(s) PO TID 08/1008/09/2014 Inactive Fish Oil 1,000 mg capsule RxNorm: 1 Capsule(s) PO daily No Start Date Active Protonix 40 mg tablet,delayed release RxNorm: 262062 1 Tablet(s) PO QAM No Start Date Active furosemide 40 mg tablet RxNorm: 497492 1 Tablet(s) PO daily No Start Date Active pen needle, diabetic 31 gauge x 1/6" RxNorm: Miscellaneous No Start Date Active tramadol 50 mg tablet RxNorm: 163836 1 Tablet(s) PO TID as needed No Start Date Active nitroglycerin 0.4 mg sublingual tablet RxNorm: 266733 1 Tablet(s) SL as needed chest pain No Start Date Active amlodipine 5 mg tablet RxNorm: 683473 1 Tablet(s) PO daily No Start Date Active Entresto 24 mg-26 mg tablet RxNorm: 5749324 1 Tablet(s) PO BID No Start Date Active aspirin 81 mg chewable tablet RxNorm: 051226 1 Tablet(s) PO daily No Start Date 06/02/2017 Inactive Eliquis 5 mg tablet RxNorm: 3574403 1 Tablet(s) PO BID No Start Date 01/26/2018 Inactive bisoprolol-hydrochlorothiazide oral RxNorm: 96728 oral No Start Date 08/26/2014 Inactive levothyroxine 50 mcg tablet RxNorm: 766532 1 Tablet(s) PO daily No Start Date 01/30/2015 Inactive potassium chloride ER 20 mEq tablet,extended release RxNorm: 263300 1 Tablet(s) PO daily No Start Date 06/21/2017 Inactive digoxin 250 mcg tablet RxNorm: 303287 1 Tablet(s) PO daily No Start Date 01/26/2018 Inactive Invokana 100 mg tablet RxNorm: 5850025 1 Tablet(s) PO daily No Start Date 12/11/2014 Inactive Victoza 3-Dariusz 0.6 mg/0.1 mL (18 mg/3 mL) subcutaneous pen injector RxNorm: 544232 0.6 Milligram(s) SQ daily x2 weeks, then 1.2 mg SQ daily No Start Date 12/01/2015 Inactive Effient 10 mg tablet RxNorm: 464573 1 Tablet(s) PO QAM No Start Date 01/26/2018 Inactive Zetia 10 mg tablet RxNorm: 302157 1 Tablet(s) PO BID No Start Date 03/18/2016 Inactive metoprolol succinate ER 100 mg tablet,extended release 24 hr RxNorm: 048040 1 Tablet(s) PO daily No Start Date 2017 Inactive gabapentin 300 mg capsule RxNorm: 580429 1 Capsule(s) PO BID No Start Date 08/13/2015 Inactive Lasix 40 mg tablet RxNorm: 348979 1 Tablet(s) PO BID No Start Date 04/14/2017 Inactive Coreg 3.125 mg tablet RxNorm: 666588 1 Tablet(s) PO BID with meals No [...] back pain ICD-10: M54.5 ICD-9: 724.2 02/24/2018 Generalized anxiety disorder ICD-10: F41.1 ICD-9: 300.00 01/27/2018 Essential (primary) hypertension ICD-10: I10 ICD-9: 401.1 01/27/2018 Major depressive disorder, recurrent, 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 ICD-9: 296.31 01/27/2018 Carpal tunnel syndrome, left upper limb ICD-10: G56.02 ICD-9: 354.0 11/25/2017 Encounter for immunization ICD-10: Z23 ICD-9: V04.81 11/25/2017 Type 2 diabetes mellitus with hyperglycemia ICD-10: E11.65 ICD-9: 250.02 10/11/2017 Type 2 diabetes mellitus with diabetic autonomic (poly)neuropathy ICD-10: E11.43 ICD-9: 250.60 09/22/2017 Paroxysmal atrial fibrillation ICD-10: I48.0 ICD-9: 427.31 07/06/2017 Major depressive disorder, recurrent, moderate ICD-10: F33.1 ICD-9: 296.32 05/12/2017 Paroxysmal tachycardia, unspecified ICD-10: I47.9 ICD-9: 427.2 05/12/2017 Cough ICD-10: R05 ICD-9: 786.2 04/15/2017 Essential (primary) hypertension ICD-10: I10 ICD-9: 401.9 03/19/2017 Hypothyroidism, unspecified ICD-10: E03.9 ICD-9: 244.9 07/17/2015 Headache ICD-10: R51 ICD-9: 784.0 03/25/2015 ESSENTIAL HYPERTENSION ICD-9: 401.9 12/04 VACCIN FOR INFLUENZA ICD-9: V04.81 2014 DIABETES TYPE II ICD-9: 250.00 2014 Aortic stenosis ICD-9: 424.1 12/04/2014 Diabetes mellitus out of control ICD-9: 250.02 08/14/2014 Reason For Visit Reason For Visit Effective Dates Notes diabetes mellitus 02/24/2018 diabetes mellitus 01/27/2018 diabetes mellitus 11/25/2017 diabetes mellitus 10/26/2017 diabetes mellitus 10/11/2017 diabetes mellitus 09/22/2017 Hospital Follow Up 07/06/2017 Hospital Follow Up 06/03/2017 arrhythmia 05/12/2017 Hospital Follow Up 04/15/2017 stress test and then shipped to [facility] Follow Up 03/19/2017 stress test and then shipped to [facility] diabetes mellitus 02/03/2017 headache 01/07/2017 diabetes mellitus 12/17/2016 diabetes mellitus 09/14/2016 diabetes mellitus 06/18/2016 medication follow up 04/16/2016 back pain 03/19/2016 back pain 11/14/2015 back pain 08/14/2015 diabetes mellitus 07/17/2015 Hospital Follow Up 03/25/2015 diabetes mellitus 12/04/2014 diabetes mellitus 08/14/2014 Results Observation Observation Code Item Item Code Result Date Culture Urine [id number] URINE CULTURE SEE NOTES 02/28/2018 Urine Culture [...] 28.8 pg 02/24/2018 Cbc With Differential Ord2 [place]% 5.7 % 02/24/2018 Cbc With Differential Ord2 [...] 1.57 K/ul 02/24/2018 Cbc With Differential Ord2 [place] ABS# 0.4 K/ul 02/24/2018 Cbc With Differential Ord2 Eos ABS# 0.1 K/ul 02/24/2018 Cbc With Differential Ord2 Baso ABS# 0.0 K/ul 02/24/2018 Comp Metabolic Beg161 NA 138 mEq/L 02/24/2018 Comp Metabolic Ilx747 K 4.4 mEq/L 02/24/2018 Comp Metabolic Nrc600 CL 100 mEq/L 02/24/2018 Comp Metabolic Ove964 CO2 27.0 mEq/L 02/24/2018 Comp Metabolic Pza679 ANION GAP 15 02/24/2018 Comp Metabolic Ybc839 GLUCOSE 98 mg/dL 02/24/2018 Comp Metabolic Yha420 Creat 1.0 mg/dL 02/24/2018 Comp Metabolic Vdy271 eGFR 55 ml/min/1.73m2 02/24/2018 Comp Metabolic Gex694 BUN 25 mg/dL 02/24/2018 Comp Metabolic Bjm785 B/C Ratio 24.3 Ratio 02/24/2018 Comp Metabolic Ybn320 CALCIUM 9.4 mg/dL 02/24/2018 Comp Metabolic Psq369 ALK PHOS 46 U/L 02/24/2018 Comp Metabolic Hpo926 AST(SGOT) 13 U/L 02/24/2018 Comp Metabolic Isq595 ALT(SGPT) 12 U/L 02/24/2018 Comp Metabolic Ama687 BILI T 0.4 mg/dL 02/24/2018 Comp Metabolic Rup025 ALBUMIN 4.5 g/dL 02/24/2018 Comp Metabolic Ysi825 TPRO 6.6 g/dL 02/24/2018 Comp Metabolic Fag264 GLOB 2.1 g/dL 02/24/2018 Comp Metabolic Bdk893 A/G Ratio 2.1 Ratio 02/24/2018 Comp Metabolic Kib048 Osmo 280 mOsmo 02/24/2018 Culture Urine [id number] URINE CULTURE SEE NOTES 02/11/2018 Culture Urine [id number] Continued Results 02/11/2018 Urine Culture Ucult Complete >100,000 col/ml aerobic growth sent to ref lab 02/08/2018 %Hba1C Ckq741 % HbA1c 06518-7 6.8 % 01/12/2018 %Hba1C Xzi401 Gluc Ave 148 mg/dL 01/12/2018 Metabolic Ord15 [...] 11.4 g/dl 01/11/2018 Cbc With Differential Ord2 Neut% 57.6 % 01/11/2018 Cbc With Differential Ord2 HCT 35.8 % 01/11/2018 Cbc With Differential Ord2 Lymph% 31.7 % 01/11/2018 Cbc With Differential Ord2 MCV 89.9 fl 01/11/2018 Cbc With Differential Ord2 MCH 28.6 pg 01/11/2018 Cbc With Differential Ord2 [place]% 7.8 % 01/11/2018 Cbc With Differential Ord2 MCHC 31.8 pg 01/11/2018 Cbc With Differential Ord2 Eos% 2.2 % 01/11/2018 Cbc With Differential Ord2 PLT 304 K/ul 01/11/2018 Cbc With Differential Ord2 Baso% 0.7 % 01/11/2018 Cbc With Differential Ord2 RDW 15.4 % 01/11/2018 Cbc With Differential Ord2 Neut ABS# 3.09 K/ul 01/11/2018 Cbc With Differential Ord2 Lymph ABS# 1.70 K/ul 01/11/2018 Cbc With Differential Ord2 [place] ABS# 0.4 K/ul 01/11/2018 Cbc With Differential Ord2 Eos ABS# 0.1 K/ul 01/11/2018 Cbc With Differential Ord2 Baso ABS# 0.0 K/ul 01/11/2018 Magnesium Ord90 Mag 1.7 mg/dL 01/11/2018 Test(s) Not Perfromed [id number] Test(s) Not Performed Test(s) Not Performed. See Below: 09/20/2017 Test(s) Not Perfromed [id number] TEST NAME BNP 09/20/2017 Test(s) Not Perfromed [id number] Rejection Reason Patient Refused due to lack of coving diganosis 09/20/2017 Test(s) Not Perfromed [id number] COMMENT Dorita Notified 09/20 Test(s) Not Perfromed AEN0298 Neonatal Social Worker Miguel Mclaughlin 2017 B Type Natriuretic Peptide Sdt3729 B-CONSERVATION OF RES[employer] COMMISSIONER 889.00 pg/ml 2017 Cbc With Differential Ord2 [...] 28.9 pg 09/20/2017 Cbc With Differential Ord2 [place]% 5.6 % 09/20/2017 Cbc With Differential Ord2 [...] 1.68 K/ul 09/20/2017 Cbc With Differential Ord2 [place] ABS# 0.3 K/ul 09/20/2017 Cbc With Differential Ord2 Eos ABS# 0.1 K/ul 09/20/2017 Cbc With Differential Ord2 Baso ABS# 0.0 K/ul 09/20/2017 %Hba1C Efk200 % HbA1c 58180-3 7.9 % 09/20/2017 %Hba1C Huk575 Gluc Ave 180 mg/dL 09/20/2017 Magnesium Ord90 Mag 1.7 mg/dL 07/07/2017 Sed Rate Ord21 ESR 14 mm/hr 07/07/2017 Cbc With Differential Ord2 WBC 4.53 K/ul 07/07/2017 Cbc With Differential Ord2 RBC 3.75 M/ul 07/07/2017 Cbc With Differential Ord2 HGB 10.6 g/dl 07/07/2017 Cbc With Differential Ord2 HCT 33.2 % 07/07/2017 Cbc With Differential Ord2 Neut% 59.6 % 07/07/2017 Cbc With Differential Ord2 MCV 88.5 fl 07/07/2017 Cbc With Differential Ord2 Lymph% 29.6 % 07/07/2017 Cbc With Differential Ord2 MCH 28.3 pg 07/07/2017 Cbc With Differential Ord2 [place]% 7.9 % 07/07/2017 Cbc With Differential Ord2 Eos% 2.2 % 07/07/2017 Cbc With Differential Ord2 MCHC 31.9 pg 07/07/2017 Cbc With Differential Ord2 PLT 278 K/ul 07/07/2017 Cbc With Differential Ord2 Baso% 0.7 % 07/07/2017 Cbc With Differential Ord2 RDW 15.7 % 07/07/2017 Cbc With Differential Ord2 Neut ABS# 2.70 K/ul 07/07/2017 Cbc With Differential Ord2 Lymph ABS# 1.34 K/ul 07/07/2017 Cbc With Differential Ord2 [place] ABS# 0.4 K/ul 07/07/2017 Cbc With Differential Ord2 Eos ABS# 0.1 K/ul 07/07/2017 Cbc With Differential Ord2 Baso ABS# 0.0 K/ul 07/07/2017 Comp Metabolic Wjf726 NA 142 mEq/L 07/07/2017 Comp Metabolic Ptv022 K 4.3 mEq/L 07/07/2017 Comp Metabolic Znw866 CL 105 mEq/L 07/07/2017 Comp Metabolic Idk403 CO2 28.0 mEq/L 07/07/2017 Comp Metabolic Vqu951 ANION GAP 13 07/07/2017 Comp Metabolic Env525 GLUCOSE 197 mg/dL 07/07/2017 Comp Metabolic Gyz916 Creat 1.1 mg/dL 07/07/2017 Comp Metabolic Upe310 eGFR 51 ml/min/1.73m2 07/07/2017 Comp Metabolic Vov532 BUN 21 mg/dL 07/07/2017 Comp Metabolic Sgn931 B/C Ratio 18.9 Ratio 07/07/2017 Comp Metabolic Bsp597 CALCIUM 8.9 mg/dL 07/07/2017 Comp Metabolic Pec215 ALK PHOS 51 U/L 07/07/2017 Comp Metabolic Zim320 AST(SGOT) 11 U/L 07/07/2017 Comp Metabolic Vcs325 ALT(SGPT) 11 U/L 07/07/2017 Comp Metabolic Oja991 BILI T 0.3 mg/dL 07/07/2017 Comp Metabolic Nmh150 ALBUMIN 4.2 g/dL 07/07/2017 Comp Metabolic Ala354 TPRO 6.0 g/dL 07/07/2017 Comp Metabolic Fuh172 GLOB 1.8 g/dL 07/07/2017 Comp Metabolic Erz287 A/G Ratio 2.3 Ratio 07/07/2017 Comp Metabolic Bql841 Osmo 292 mOsmo 07/07/2017 Digoxin Ord9 DIGOXIN 1.3 NG/ML 07/07/2017 Tsh Ord6 TSH (3rd IS) 2.19 uIU/mL 07/07/2017 B Type Natriuretic Peptide Vcl7437 B-CON[employer] OF [employer] COMMISSIONER 801.00 pg/ml 2017 Culture Urine [id number] URINE CULTURE SEE NOTES 04/19/2017 Culture Urine [id number] Continued Results 04/19/2017 Urine Culture Ucult Complete >100,000 col/ml aerobic growth sent to ref lab 04/16/2017 Comp Metabolic Uac853 NA 140 mEq/L 01/26/2017 Comp Metabolic Cbv476 K 4.6 mEq/L 01/26/2017 Comp Metabolic Nra411 CL 102 mEq/L 01/26/2017 Comp Metabolic Hlm953 CO2 28.0 mEq/L 01/26/2017 Comp Metabolic Ixs018 ANION GAP 15 01/26/2017 Comp Metabolic Czk892 GLUCOSE 173 mg/dL 01/26/2017 Comp Metabolic Lgo727 Creat 1.0 mg/dL 01/26/2017 Comp Metabolic Ikj764 eGFR 56 ml/min/1.73m2 01/26/2017 Comp Metabolic Dvk858 BUN 23 mg/dL 01/26/2017 Comp Metabolic Cou884 B/C Ratio 22.5 Ratio 01/26/2017 Comp Metabolic Usy193 CALCIUM 9.4 mg/dL 01/26/2017 Comp Metabolic Vdp949 ALK PHOS 52 U/L 01/26/2017 Comp Metabolic Irc325 AST(SGOT) 12 U/L 01/26/2017 Comp Metabolic Sqb155 ALT(SGPT) 12 U/L 01/26/2017 Comp Metabolic Xoa561 BILI T 0.5 mg/dL 01/26/2017 Comp Metabolic Oqs494 ALBUMIN 4.4 g/dL 01/26/2017 Comp Metabolic Hys993 TPRO 6.5 g/dL 01/26/2017 Comp Metabolic Mye089 GLOB 2.1 g/dL 01/26/2017 Comp Metabolic Sqa105 A/G Ratio 2.1 Ratio 01/26/2017 Comp Metabolic Obh927 Osmo 287 mOsmo 01/26/2017 Cbc With Differential [...] 23.6 % 01/26/2017 Cbc With Differential Ord2 [place]% 4.9 % 01/26/2017 Cbc With Differential Ord2 MCH 29.2 pg 01/26/2017 Cbc With Differential Ord2 Eos% [...] 1.75 K/ul 01/26/2017 Cbc With Differential Ord2 [place] ABS# 0.4 K/ul 01/26/2017 Cbc With Differential Ord2 Eos ABS# 0.1 K/ul 01/26/2017 Cbc With Differential Ord2 Baso ABS# 0.0 K/ul 01/26/2017 %Hba1C Xki162 % HbA1c 87330-9 7.8 % 01/26/2017 %Hba1C Lcc275 Gluc Ave 177 mg/dL 01/26/2017 Lipid Ord30 CHOL 239 mg/dL 01/26/2017 Lipid Ord30 HDL 40.0 mg/dl 01/26/2017 Lipid Ord30 TRIG 325 mg/dL 01/26/2017 Lipid Ord30 LDL 134 mg/dL 01/26/2017 Lipid Ord30 C/HDL 6.0 Ratio 01/26/2017 Free T4 Tvz996 FREE T4 0.95 ng/dL 01/26/2017 Tsh Ord6 [...] Metabolic Ord15 CALCIUM 9.0 mg/dL 09/08/2016 %Hba1C Hrf131 % HbA1c 18082-2 7.5 % 09/08/2016 %Hba1C Kej295 Gluc Ave 169 mg/dL 09/08/2016 Tsh Ord6 hTSH II 2.64 uIU/mL 03/13/2016 %Hba1C Ozf996 % HbA1c 20670-5 8.2 % 03/13/2016 %Hba1C Lnv761 Gluc Ave 189 mg/dL 03/13/2016 Lipid Ord30 CHOL 233 mg/dL 03/13/2016 Lipid Ord30 HDL 46.0 mg/dl 03/13/2016 Lipid Ord30 TRIG 276 mg/dL 03/13/2016 Lipid Ord30 LDL 132 mg/dL 03/13/2016 Lipid Ord30 C/HDL 5.1 Ratio 03/13/2016 Free T4 Ttw144 FREE T4 0.94 ng/dL 03/13/2016 Cbc With [...] 29.5 % 03/13/2016 Cbc With Differential Ord2 [place]% 6.1 % 03/13/2016 Cbc With Differential Ord2 MCH 30.3 pg 03/13/2016 Cbc With Differential Ord2 Eos% 1.8 % 03/13/2016 Cbc With Differential Ord2 MCHC 33.2 pg 03/13/2016 Cbc With Differential Ord2 PLT 304 K/ul 03/13/2016 Cbc With Differential Ord2 Baso% 0.5 % 03/13/2016 Cbc With Differential Ord2 RDW 14.4 % 03/13/2016 Cbc With Differential Ord2 Neut ABS# 3.43 K/ul 03/13/2016 Cbc With Differential Ord2 Lymph ABS# 1.63 K/ul 03/13/2016 Cbc With Differential Ord2 [place] ABS# 0.3 K/ul 03/13/2016 Cbc With Differential Ord2 Eos ABS# 0.1 K/ul 03/13/2016 Cbc With Differential Ord2 Baso ABS# 0.0 K/ul 03/13/2016 Comp Metabolic Yhp533 NA 139 mEq/L 03/13/2016 Comp Metabolic Mlm375 K 4.3 mEq/L 03/13/2016 Comp Metabolic Mgr283 CL 103 mEq/L 03/13/2016 Comp Metabolic Yxq860 CO2 28.0 mEq/L 03/13/2016 Comp Metabolic Tuz062 ANION GAP 12 03/13/2016 Comp Metabolic Zio164 GLUCOSE 200 mg/dL 03/13/2016 Comp Metabolic And300 Creat 0.9 mg/dL 03/13/2016 Comp Metabolic Ggu582 eGFR 69 ml/min/1.73m2 03/13/2016 Comp Metabolic Lvl779 BUN 19 mg/dL 03/13/2016 Comp Metabolic Dts106 B/C Ratio 22.4 Ratio 03/13/2016 Comp Metabolic Kyd975 CALCIUM 9.0 mg/dL 03/13/2016 Comp Metabolic Hkk552 ALK PHOS 57 U/L 03/13/2016 Comp Metabolic Ssf136 AST(SGOT) 13 U/L 03/13/2016 Comp Metabolic Buw608 ALT(SGPT) 16 U/L 03/13/2016 Comp Metabolic Mda524 BILI T 0.4 mg/dL 03/13/2016 Comp Metabolic Slo175 ALBUMIN 4.2 g/dL 03/13/2016 Comp Metabolic Wxd857 TPRO 6.3 g/dL 03/13/2016 Comp Metabolic Hef496 GLOB 2.1 g/dL 03/13/2016 Comp Metabolic Mox567 A/G Ratio 2.0 Ratio 03/13/2016 Comp Metabolic Kpg114 Osmo 285 mOsmo 03/13/2016 %Hba1C Pkm317 % HbA1c 96480-5 8.3 % 11/14/2015 %Hba1C Iah669 Gluc Ave 192 mg/dL 11/14/2015 Lipid Ord30 CHOL 210 mg/dL 07/19/2015 Lipid Ord30 HDL 43.0 mg/dl 07/19/2015 Lipid Ord30 TRIG 311 mg/dL 07/19/2015 Lipid Ord30 LDL 105 mg/dL 07/19/2015 Lipid Ord30 C/HDL 4.9 Ratio 07/19/2015 %Hba1C Hem806 % HbA1c 79851-4 7.6 % 07/19/2015 %Hba1C Ejv827 Gluc Ave 171 mg/dL 07/19/2015 Cbc With Differential Ord2 WBC 5.38 K/ul 07/19/2015 Cbc With Differential Ord2 RBC 4.82 M/ul 07/19/2015 Cbc With Differential Ord2 HGB 13.9 g/dl 07/19/2015 Cbc With Differential Ord2 HCT 42.2 % 07/19/2015 Cbc With Differential Ord2 Neut% 61.9 % 07/19/2015 Cbc With Differential Ord2 Lymph% 30.3 % 07/19/2015 Cbc With Differential Ord2 MCV 87.6 fl 07/19/2015 Cbc With Differential Ord2 [place]% 6.1 % 07/19/2015 Cbc With Differential Ord2 [...] 1.63 K/ul 07/19/2015 Cbc With Differential Ord2 [place] ABS# 0.3 K/ul 07/19/2015 Cbc With Differential Ord2 Eos ABS# 0.1 K/ul 07/19/2015 Cbc With Differential Ord2 Baso ABS# 0.0 K/ul 07/19/2015 Cbc With Differential Ord2 New Analyzer Notice Please note new ref ranges starting 03-27-2015 due to implemntation of new five part differential hematolgy analyzer. 07/19/2015 Comp Metabolic Zif804 NA 138 mEq/L 07/19/2015 Comp Metabolic Dxe419 K 4.3 mEq/L 07/19/2015 Comp Metabolic Mou329 CL 100 mEq/L 07/19/2015 Comp Metabolic Ipc396 CO2 33.0 mEq/L 07/19/2015 Comp Metabolic Xnx171 ANION GAP 9 07/19/2015 Comp Metabolic Kpw597 GLUCOSE 149 mg/dL 07/19/2015 Comp Metabolic Tyi707 Creat 0.9 mg/dL 07/19/2015 Comp Metabolic Hcr375 eGFR 62 ml/min/1.73m2 07/19/2015 Comp Metabolic Ekm209 BUN 19 mg/dL 07/19/2015 Comp Metabolic Bvc759 B/C Ratio 20.2 Ratio 07/19/2015 Comp Metabolic Igg054 CALCIUM 9.5 mg/dL 07/19/2015 Comp Metabolic Fur483 ALK PHOS 52 U/L 07/19/2015 Comp Metabolic Pap209 AST(SGOT) 15 U/L 07/19/2015 Comp Metabolic Mqs429 ALT(SGPT) 14 U/L 07/19/2015 Comp Metabolic Luv101 BILI T 0.5 mg/dL 07/19/2015 Comp Metabolic Jdh960 ALBUMIN 4.4 g/dL 07/19/2015 Comp Metabolic Dwo948 TPRO 6.4 g/dL 07/19/2015 Comp Metabolic Few650 GLOB 2.0 g/dL 07/19/2015 Comp Metabolic Iri842 A/G Ratio 2.2 Ratio 07/19/2015 Comp Metabolic Squ312 Osmo 281 mOsmo 07/19/2015 Free T4 Ujq546 FREE T4 0.92 ng/dL 07/19/2015 Tsh Ord6 hTSH II 1.95 uIU/mL 07/19/2015 Microalbumin Uin204 MicroAlb 0.4 mg/dL 07/19/2015 Comp Metabolic Qgh352 NA 137 mEq/L 12/04/2014 Comp Metabolic Ycd415 K 4.0 mEq/L 12/04/2014 Comp Metabolic Dyn062 CL 100 mEq/L 12/04/2014 Comp Metabolic Ksx273 CO2 29.0 mEq/L 12/04/2014 Comp Metabolic Sgy861 ANION GAP 12 12/04/2014 Comp Metabolic Lnr904 GLUCOSE 171 mg/dL 12/04/2014 Comp Metabolic Qtr446 Creat 1.0 mg/dL 12/04/2014 Comp Metabolic Wdo021 eGFR 60 ml/min/1.73m2 12/04/2014 Comp Metabolic Zcw497 BUN 25 mg/dL 12/04/2014 Comp Metabolic Mdi625 B/C Ratio 25.8 Ratio 12/04/2014 Comp Metabolic Aje835 CALCIUM 9.4 mg/dL 12/04/2014 Comp Metabolic Efl317 ALK PHOS 60 U/L 12/04/2014 Comp Metabolic Adt911 AST(SGOT) 13 U/L 12/04/2014 Comp Metabolic Vxh575 ALT(SGPT) 17 U/L 12/04/2014 Comp Metabolic Fya021 BILI T 0.4 mg/dL 12/04/2014 Comp Metabolic Yng022 ALBUMIN 4.4 g/dL 12/04/2014 Comp Metabolic Yfo562 TPRO 6.9 g/dL 12/04/2014 Comp Metabolic Keg340 GLOB 2.5 g/dL 12/04/2014 Comp Metabolic Ygg042 A/G Ratio 1.8 Ratio 12/04/2014 Comp Metabolic Kup036 Osmo 282 mOsmo 12/04/2014 Tsh Ord6 hTSH II 1.78 uIU/mL 12/04/2014 %Hba1C Uqz479 % HbA1c 79050-9 8.3 % 12/04/2014 %Hba1C Ikf470 Gluc Ave 192 mg/dL 12/04/2014 Free T4 Wxm741 FREE T4 0.85 ng/dL 12/04/2014 Lipid Ord30 [...] clear 08/14/2014 None Full Exam - General 1995 Ears/Nose/Throat [...] Codes Date URINALYSIS NONAUTO W/O SCOPE CPT-4: 51371 02/24/2018 URINALYSIS NONAUTO W/O SCOPE CPT-4: 63439 02/07/2018 ADMIN INFLUENZA VIRUS VAC CPT-4: G0008 11/25/2017 FLU VAC NO PRSV 4 ANABELLE 3 YRS+ CPT-4: 11452 11/25/2017 GLUC MONITOR CONT PHYS I&R CPT-4: 15318 10/26/2017 GLUCOSE MONITORING CONT CPT-4: 45810 10/11/2017 URINALYSIS NONAUTO W/O SCOPE CPT-4: 34150 04/15/2017 FLU VAC NO PRSV 4 ANABELLE 3 YRS+ CPT-4: 12849 12/17/2016 ADMIN INFLUENZA VIRUS VAC CPT-4: G0008 12/17/2016 FLU VACC PRSV FREE INC ANTIG Formatting Model/CDA Sections, Assigned to/Nery Daniels CPT-4: 27601Bzepuha 11/14/2015 ADMIN INFLUENZA VIRUS VAC CPT-4: G0008 11/14/2015 ADMIN INFLUENZA VIRUS VAC Formatting Model/CDA Sections, Assigned to/Nery Daniels CPT-4: M6098Czanmij 12/04/2014 FLU VACC 4 ANABELLE 3 YRS PLUS IM SNOMED CT: [id number] CPT-4: 18406 12/04/2014 Vital Signs Date Vital 02/24/2018 Blood Pressure 1: 130/62 Code : 8480-6 BMI: 28.9 Code : 89948-0 Heart Rate 1 : 57 bpm Height: 5' SpO2: 99% Weight: 148 lbs 01/27/2018 Blood Pressure 1: 142/70 Code : 8480-6 BMI: 29.5 Code : 53839-7 Heart Rate 1 : 61 bpm Height: 5' SpO2: 99% Weight: 151 lbs 11/25/2017 Blood Pressure 1: 148/72 Code : 8480-6 BMI: 30.9 Code : 97660-7 Heart Rate 1 : 62 bpm Height: 5' SpO2: 98% Weight: 158 lbs 10/26/2017 Blood Pressure 1: 156/74 Code : 8480-6 BMI: 31.2 Code : 17704-1 Heart Rate 1 : 71 bpm Height: 5' SpO2: 98% Weight: 160 lbs 10/11/2017 Blood Pressure 1: 128/70 Code : 8480-6 BMI: 30.9 Code : 90388-8 Heart Rate 1 : 70 bpm Height: 5' SpO2: 95% Weight: 158 lbs 09/22/2017 Blood Pressure 1: 110/52 Code : 8480-6 BMI: 30.9 Code : 68652-1 Heart Rate 1 : 72 bpm Height: 5' SpO2: 99% Weight: 158 lbs 07/06/2017 Blood Pressure 1: 120/85 Code : 8480-6 BMI: 31.4 Code : 61932-0 Heart Rate 1 : 74 bpm Height: 5' SpO2: 92% Weight: 161 lbs 06/03/2017 Blood Pressure 1: 120/62 Code : 8480-6 BMI: 31.1 Code : 51190-2 Heart Rate 1 : 73 bpm Height: 5' SpO2: 99% Weight: 159 lbs 05/12/2017 Blood Pressure 1: 132/68 Code : 8480-6 BMI: 32.4 Code : 83857-4 Heart Rate 1 : 95 bpm Height: 5' SpO2: 97% Weight: 166 lbs 04/15/2017 Blood Pressure 1: 128/84 Code : 8480-6 BMI: 32.4 Code : 69121-2 Heart Rate 1 : 62 bpm Height: 5' SpO2: 97% Weight: 166 lbs 03/19/2017 Blood Pressure 1: 112/60 Code : 8480-6 BMI: 32.0 Code : 33693-0 Height: 5' Weight: 164 lbs 02/03/2017 Blood Pressure 1: 128/76 Code : 8480-6 BMI: 33.4 Code : 84827-3 Heart Rate 1 : 91 bpm Height: 5' SpO2: 99% Weight: 171 lbs 01/07/2017 Blood Pressure 1: 126/74 Code : 8480-6 BMI: 34.2 Code : 19999-2 Heart Rate 1 : 83 bpm Height: 5' SpO2: 97% Weight: 175 lbs 12/17/2016 Blood Pressure 1: 122/72 Code : 8480-6 BMI: 34.0 Code : 06189-1 Heart Rate 1 : 78 bpm Height: 5' SpO2: 97% Weight: 174 lbs 09/14/2016 Blood Pressure 1: 128/86 Code : 8480-6 BMI: 33.8 Code : 98611-8 Heart Rate 1 : 88 bpm Height: 5' SpO2: 96% Weight: 173 lbs 06/18/2016 Blood Pressure 1: 122/74 Code : 8480-6 BMI: 34.8 Code : 50575-7 Heart Rate 1 : 78 bpm Height: 5' SpO2: 98% Weight: 178 lbs 04/16/2016 Blood Pressure 1: 134/68 Code : 8480-6 BMI: 35.0 Code : 78322-7 Heart Rate 1 : 67 bpm Height: 5' SpO2: 97% Weight: 179 lbs 03/19/2016 Blood Pressure 1: 132/74 Code : 8480-6 BMI: 34.6 Code : 50968-3 Heart Rate 1 : 74 bpm Height: 5' SpO2: 97% Weight: 177 lbs 11/14/2015 Blood Pressure 1: 132/70 Code : 8480-6 BMI: 35.2 Code : 72923-9 Heart Rate 1 : 68 bpm Height: 5' Weight: 180 lbs 08/14/2015 Blood Pressure 1: 122/74 Code : 8480-6 BMI: 33.8 Code : 79574-7 Heart Rate 1 : 73 bpm Height: 5' SpO2: 93% Weight: 173 lbs 07/17/2015 Blood Pressure 1: 138/78 Code : 8480-6 BMI: 34.0 Code : 92124-1 Heart Rate 1 : 85 bpm Height: 5' SpO2: 97% Weight: 174 lbs 03/25/2015 Blood Pressure 1: 130/78 Code : 8480-6 BMI: 33.2 Code : 24526-3 Heart Rate 1 : 77 bpm Height: 5' SpO2: 97% Weight: 170 lbs 12/04/2014 Blood Pressure 1: 120/74 Code : 8480-6 BMI: 35.4 Code : 34297-7 Heart Rate 1 : 67 bpm Height: 5' SpO2: 94% Weight: 181 lbs 5 oz 08/14/2014 Blood Pressure 1: 132/68 Code : 8480-6 BMI: 32.1 Code : 78878-6 Heart Rate 1 : 62 bpm Height: [...] data Encounters Encounter Performer Location Codes Date ([id number]) 14061 EST. PATIENT, LEVEL IV Diagnosis: Low back pain[ICD10: M54.5] Diagnosis: Dysuria[ICD10: R30.0] Diagnosis: Type 2 diabetes mellitus with hyperglycemia[ICD10: E11.65] Claudia Nicole MD, [facility] CPT-4: 37930 02/24/2018 ([id number]) 74388 EST. PATIENT, LEVEL IV Diagnosis: Type 2 diabetes mellitus with hyperglycemia[ICD10: E11.65] Diagnosis: Essential (primary) hypertension[ICD10: I10] Diagnosis: Major depressive disorder, recurrent, mild[ICD10: F33.0] Diagnosis: Generalized anxiety disorder[ICD10: F41.1] Claudia Nicole MD, [facility] CPT-4: 38687 01/27/2018 ([id number]) 20795 EST. PATIENT, LEVEL IV Diagnosis: Type 2 diabetes mellitus with hyperglycemia[ICD10: E11.65] Diagnosis: Essential (primary) hypertension[ICD10: I10] Diagnosis: Encounter for immunization[ICD10: Z23] Diagnosis: Carpal tunnel syndrome, left upper limb[ICD10: G56.02] Claudia Nicole MD, [facility] CPT-4: 59253 11/25/2017 ([id number]) 07993 EST. PATIENT, LEVEL III Diagnosis: Type 2 diabetes mellitus with hyperglycemia[ICD10: E11.65] Claudia Nicole MD, [facility] CPT-4: 62741 10/26/2017 ([id number]) Miscellaneous no charge Diagnosis: Type 2 diabetes mellitus with hyperglycemia[ICD10: E11.65] Claudia Nicole MD, [facility] CPT-4: 56102 10/18/2017 ([id number]) 34005 EST. 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 PATIENT, LEVEL IV Diagnosis: Type 2 diabetes mellitus with hyperglycemia[ICD10: E11.65] Diagnosis: Paroxysmal atrial fibrillation[ICD10: I48.0] Diagnosis: Essential (primary) hypertension[ICD10: I10] Mila Nicole MD, [facility] CPT-4: 98424 07/06/2017 ([id number]) 40871 EST. PATIENT, LEVEL IV Diagnosis: Essential (primary) hypertension[ICD10: I10] Diagnosis: Type 2 diabetes mellitus with hyperglycemia[ICD10: E11.65] Diagnosis: Paroxysmal atrial fibrillation[ICD10: I48.0] Claudia Nicole MD, [facility] CPT-4: 77746 06/03/2017 19270 EST. PATIENT, LEVEL III Diagnosis: Generalized anxiety disorder[ICD10: F41.1] Diagnosis: Major depressive disorder, recurrent, moderate[ICD10: F33.1] Diagnosis: Paroxysmal tachycardia, unspecified[ICD10: I47.9] Gardenia Nicole MD, [facility] CPT-4: 62388 05/12/2017 ([id number]) 33960 EST. PATIENT, LEVEL IV Diagnosis: Essential (primary) hypertension[ICD10: I10] Diagnosis: Cough[ICD10: R05] Diagnosis: Dysuria[ICD10: R30.0] Mila Nicole MD, [facility] CPT-4: 01523 04/15/2017 ([id number]) 26493 EST. PATIENT, LEVEL IV Diagnosis: Type 2 diabetes mellitus with hyperglycemia[ICD10: E11.65] Diagnosis: Essential (primary) hypertension[ICD10: I10] Mila Nicole MD, [facility] CPT-4: 53086 03/19/2017 ([id number]) 34973 EST. PATIENT, LEVEL III Diagnosis: Type 2 diabetes mellitus with hyperglycemia[ICD10: E11.65] Mila Nicole MD , [facility] CPT-4: 58263 02/03/2017 54072 EST. PATIENT, LEVEL IV Diagnosis: Generalized anxiety disorder[ICD10: F41.1] Diagnosis: Type 2 diabetes mellitus with hyperglycemia[ICD10: E11.65] Diagnosis: Essential (primary) hypertension[ICD10: I10] Gardenia Nicole MD, [facility] CPT-4: 81517 01/07/2017 [id number]) 44114 EST. PATIENT, LEVEL III Diagnosis: Type 2 diabetes mellitus with hyperglycemia[ICD10: E11.65] Diagnosis: Encounter for immunization[ICD10: Z23] Mila Nicole MD [facility] CPT-4: 01555 12/17/2016 ([id number]) 36339 EST. PATIENT, LEVEL IV Diagnosis: Type 2 diabetes mellitus with hyperglycemia[ICD10: E11.65] Diagnosis: Essential (primary) hypertension[ICD10: I10] Diagnosis: Major depressive disorder, recurrent, mild[ICD10: F33.0] Mila Nicole MD [facility] CPT-4: 12592 09/14/2016 ([id number]) 65968 EST. 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 PATIENT, LEVEL IV Diagnosis: Type 2 diabetes mellitus with hyperglycemia[ICD10: E11.65] Diagnosis: Essential (primary) hypertension[ICD10: I10] Mila Nicole MD, [facility] CPT-4: 32546 04/16/2016 ([id number]) 65416 EST. 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 PATIENT, LEVEL IV Diagnosis: Type 2 diabetes mellitus with hyperglycemia[ICD10: E11.65] Diagnosis: Encounter for immunization[ICD10: Z23] Diagnosis: Essential (primary) hypertension[ICD10: I10] Mila Nicole MD, [facility] CPT-4: 42850 11/14/2015 ([id number]) 70069 EST. PATIENT, LEVEL IV Diagnosis: Type 2 diabetes mellitus with hyperglycemia[ICD10: E11.65] Diagnosis: Essential (primary) hypertension[ICD10: I10] Diagnosis: Low back pain[ICD10: M54.5] Mila Nicole MD, [facility] CPT- 4: 59496 08/14/2015 ([id number]) 41849 EST. PATIENT, LEVEL IV Diagnosis: Type 2 diabetes mellitus with hyperglycemia[ICD10: E11.65] Diagnosis: Essential (primary) hypertension[ICD10: I10] Diagnosis: Hypothyroidism, unspecified[ICD10: E03.9] [facility] CPT-4: 99415 07/17/2015 [id number]) 54264 EST. PATIENT, LEVEL IV Diagnosis: Essential (primary) hypertension[ICD10: I10] Diagnosis: Type 2 diabetes mellitus with hyperglycemia[ICD10: E11.65] Diagnosis: Headache[ICD10: R51] Gardenia Nicole MD, [facility] CPT-4: 79167 03/25/2015 ([id number]) 03529 EST. PATIENT, LEVEL IV Diagnosis: ESSENTIAL HYPERTENSION[ICD9: 401.9] Diagnosis: DIABETES TYPE II[ICD9: 250.00] Diagnosis: Aortic stenosis[ICD9: 424.1] [facility] CPT- 4: 35787 12/04/2014 ([id number]) OFFICE VISIT, NEW - LEVEL 4 Diagnosis: ESSENTIAL HYPERTENSION[ICD9: 401.9] Diagnosis: Diabetes mellitus out of control[ICD9: 250.02] Mila Nicole MD, [facility] CPT-4: 23965 08/14/2014 Plan of Care Planned Activity Notes Codes Status Date Visit Plan: Low back pain-xray lumbar spine Dysuria- improved-will culture urine [id number] changes today 02/24/2018 Appointment: Claudia Pruitt WPtel: [address] [place], [place] [phone] (15 min) Moderate 02/24/2018 Patient Education: Patient [...] current medications. 01/27/2018 Appointment[facility] [phone] [phone] (15 min) Moderate 01/27/2018 Patient Education: Patient [...] any worse 11/25/2017 Appointment: [facility] [phone] [phone] (15 min) Moderate 11/25/2017 Patient Education: Patient Medication Summary Completed 11/25/2017 [phone] [facility] (15 min) Moderate 10/28/2017 Visit Plan: [...] appt. 10/26/2017 Appointment: Claudia Pruitt WPtel: [phone] [phone] (15 min) Moderate 10/26/2017 Patient Education: Patient [...] plan. 10/11/2017 Appointment: [facility]itt [facility] [phone] [phone] [place] (30 min) Complex 10/11/2017 Patient Education: [...] Completed 09/22/2017 Appointment: Mila Nicole WPtel: [phone] [facility] (15 min) Moderate 09/13/2017 Appointment: Mila Nicole WPtel: [phone] [facility] (15 min) Moderate 09/07/2017 Visit Plan: [...] becoming uncontrolled. 07/06/2017 Appointment: Mila Nicole WPtel: [phone] [facility] [place] (15 min) Moderate 07/06/2017 Patient Education: Patient Medication Summary Completed 07/06/2017 Appointment: Mila Nicole WPtel: [phone] [facility] [place] (15 min) Moderate 06/07/2017 Visit [...] less controlled. 06/03/2017 Appointment: [facility] [phone] [phone] (30 min) Complex 06/03/2017 Patient Education: Patient [...] treatment plan 05/12/2017 Appointment: [facility] Shah [phone] [facility] (30 min) Complex 05/12/2017 Patient Education: Patient [...] medication. 04/15/2017 Appointment: Mila Nicole WPtel: [phone] [facility] (15 min) Moderate 04/15/2017 Patient Education: [...] daily. 03/19/2017 App[facility]ment: [phone] [facility] (15 min) Moderate 03/19/2017 Patient Education: Patient Medication Summary Completed 03/19/2017 App[facility]ment: [facility] [phone] [facility] (15 min) Moderate 02/24/2017 Visit Plan: [...] HS 02/03/2017 App[facility]ment: [facility] [phone] [facility] (15 min) Moderate 02/03/2017 Patient Education: [...] concerns. 01/07/2017 Appointment: Gardenia Shah WPtel: [phone] [phone] (30 min) Complex 01/07/2017 Patient Education: Patient [...] to allow for greater blood glucose control. [id number], 02/2018 junior nordisk 12/17/2016 Appointment: Mila Nicole WPtel: [phone] [facility] (15 min) Moderate 12/17/2016 Patient Education: Patient Medication Summary Completed 12/17/2016 Patient Education: Obesity Completed 12/17/2016 Appointment: Mila Nicole WPtel: [facility] (15 min) Moderate 12/14/2016 Visit Plan: Diabetes [...] current medications. 09/14/2016 Appointment: Mila Nicole WPtel: [phone] [facility] (15 min) Moderate 09/14/2016 Patient Education: Patient [...] at home. 06/18/2016 Appointment: [facility] [phone] [facility] (15 min) Moderate 06/18/2016 Patient Education: Patient [...] home. 04/16/2016 Appointment: [facility] [phone] [facility] [place] (15 min) Moderate 04/16/2016 Patient [...] gabapentin 03/19/2016 Appointment: Mila Nicole WPtel: [phone] [facility] (15 min) Moderate 03/19/2016 Patient Education: [...] home. 11/14/2015 App[facility]ment: [facility] [phone] [facility] (15 min) Moderate 11/14/2015 Patient Education: Patient [...] check Hgba1c 07/17/2015 Appointment: Mil[facility] Nicole WPtel: [facility] (15 min) Moderate 07/17/2015 Patient Education: Patient [...] 03/25/2015 Patient Education: Hypertension Completed 03/25/2015 Appointment: Mial Nicole WPtel: [facility] (15 min) Moderate 01/14/2015 Visit Plan: Diabetes [...] on previous levels of control. 12/04/2014 Appointment: [facility] Nic[facility] [phone] [facility] (15 min) Moderate 12/04/2014 Patient Education: [...] control. 08/14/2014 Appointment: [facility] [phone] [facility] [place] (S) New Patient 08/14/2014 Patient [...] to allow for greater blood glucose control. [id number], 02/2018 junior nordisk CHECK LABS AND UA XRAY LUMBAR . Low back pain-xray lumbar spine Dysuria- improved-will culture urine [id number] changes today . Hypertension - well controlled [...]
--- OUTSIDE RECORDS SUMMARY | 2018-03-30 10:43 | XMS REPORT | CCD ---
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 Name Role Phone PP Unavailable CCM Unavailable Summary Purpose Interface Exchange Insurance Providers Payer name Policy type / Coverage type Covered constitution party ID Effective Begin Date Effective End Date WPS Medicare Part B Medicare Part B [id number] Unknown AARP Medicare Part B [id number] Unknown Family history Mother Diagnosis Age At [...] Unknown 3 08/14/[address]: 509942344 Never smoker 08/14/[address]: 598254160 Never drinks alcohol 08/14/2014 Allergies, Adverse Reactions, Alerts Substance Reaction Codes Entered Date Inactivated Date Status * OTHER REACTION - SEE ANSWER BOX Invokana, Victoza Unknown 07/2017 No Inactive Date Active Paxil has blurred vision RxNorm: 264395 08/14/2014 No Inactive Date Active Lipitor RxNorm: 56373 08/14/2014 No Inactive Date Active Past Medical [...] Start Date Stop Date Status Fill Instructions Keflex 500 mg capsule RxNorm: 114527 1 Capsule(s) PO TID 201702/10/2018 Inactive Keflex 500 mg capsule RxNorm: 263852 1 Capsule(s) PO TID 201702/20/2018 Inactive metoprolol succinate ER 200 mg tablet,extended release 24 hr RxNorm: 213868 1 Tablet(s) PO daily 01/27/2018 No Stop Date Active Eliquis 2.5 mg tablet RxNorm: 6581195 1 Tablet(s) PO BID 2017 No Stop Date Active digoxin 125 mcg tablet RxNorm: 724901 1 Tablet(s) PO daily No Stop Date Active Basaglar KwikPen U-100 Insulin 100 unit/mL (3 mL) subcutaneous RxNorm: 4340329 20 Unit(s) SQ daily 11/25/201705/23 Active UPDATE RX metformin 500 mg tablet RxNorm: 544672 1 Tablet(s) PO UD 1.5 in morning, noon and 1 at bedtime 10/28/2017 10/22/2018 Active Basaglar KwikPen U-100 Insulin 100 unit/mL (3 mL) subcutaneous RxNorm: 2986162 18 Unit(s) SQ daily 10/26/201711/24 Inactive UPDATE RX levothyroxine 50 mcg tablet RxNorm: 122762 TAKE 1 TABLET BY MOUTH ONCE DAILY 10/15/2017 06/11/2018 Active Generic For:SYNTHROID 50MCG TAB 10/15/2017 9:59:00 AM escitalopram 10 mg tablet RxNorm: 325678 1 Tablet(s) PO QPM 01/201809/16/2018 Active Generic For:LEXAPRO 5MG 01/07/2017 9:05:43 AM Basaglar KwikPen U-100 Insulin 100 unit/mL (3 mL) subcutaneous RxNorm: 0781073 15 Unit(s) SQ daily 09/22/201710/25 Inactive potassium chloride ER 20 mEq tablet,extended release RxNorm: 441885 1 Tablet(s) PO daily 06/22/2017 01/17/2018 Inactive Lantus Solostar U-100 Insulin 100 unit/mL (3 mL) subcutaneous pen RxNorm: 874251 10 Unit(s) SQ daily 06/08/2017 Inactive Basaglar KwikPen U-100 Insulin 100 unit/mL (3 mL) subcutaneous RxNorm: 6460547 10 Unit(s) SQ daily 06/08/201706/07 Inactive Basaglar KwikPen U-100 Insulin 100 unit/mL (3 mL) subcutaneous RxNorm: 0599226 10 Unit(s) SQ daily 06/08/201709/21 Inactive Lexapro 5 mg tablet RxNorm: 800080 1 Tablet(s) PO daily 201711/27/2017 Inactive Lexapro 5 mg tablet RxNorm: 188283 1 Tablet(s) PO daily 201705/31/2017 Inactive bisoprolol 5 mg-hydrochlorothiazide 6.25 mg tablet RxNorm: 352096 1 Tablet(s) PO BID 05/04/2017 06/02/2017 Inactive Keflex 500 mg capsule RxNorm: 088375 1 Capsule(s) PO QID 201704/21/2017 Inactive Lantus Solostar 100 unit/mL (3 mL) subcutaneous insulin pen RxNorm: 671284 10 Unit(s) SQ daily 02/03/2017 06/07/2017 Inactive levothyroxine 50 mcg tablet RxNorm: 661285 TAKE 1 TABLET BY MOUTH ONCE DAILY 02/01/2017 09/28/2017 Inactive Generic For:SYNTHROID 50MCG TAB 02/01/2017 9:20:59 AM gabapentin 600 mg tablet RxNorm: 399139 1 Capsule(s) PO TID 01/21/2018 Inactive Lexapro 5 mg tablet RxNorm: 609474 TAKE 1 TABLET BY MOUTH AT BEDTIME 01/07/2017 09/21/2017 Inactive Generic For:LEXAPRO 5MG 01/07/2017 9:05:43 AM Victoza 2-Dariusz 0.6 mg/0.1 mL (18 mg/3 mL) subcutaneous pen injector RxNorm: 362923 1.8 Milligram(s) SQ daily 12/17/201602/07 Inactive Victoza 3-Dariusz 0.6 mg/0.1 mL (18 mg/3 mL) subcutaneous pen injector RxNorm: 339285 Milligram(s) SQ 12/17/2016 02/07/2017 Inactive Zetia 10 mg tablet RxNorm: 295044 1 Tablet(s) PO daily 201611/11/2017 Inactive fluticasone 50 mcg/actuation nasal spray,suspension RxNorm: 4007532 [place] NASAL ONE SPRAY IN EACH NOSTRIL TWICE DAILY 09/28/2016 04/25/2017 Inactive Victoza 2-Dariusz 0.6 mg/0.1 mL (18 mg/3 mL) subcutaneous pen injector RxNorm: 549377 1.2 Milligram(s) SQ daily 09/14/201612/16 Inactive Lexapro 5 mg tablet RxNorm: 825001 1 Tablet(s) PO QHS 201612/12/2016 Inactive metformin 500 mg tablet RxNorm: 644895 1 Tablet(s) PO UD 1.5 in morning, noon and 1 at bedtime 09/08/2016 09/02/2017 Inactive glimepiride 4 mg tablet RxNorm: 712545 TAKE 1 TABLET BY MOUTH ONCE DAILY 07/31/2016 09/13/2016 Inactive Generic For:*AMARYL 4MG 07/31/2016 9:02:38 AM Victoza 2-Dariusz 0.6 mg/0.1 mL (18 mg/3 mL) subcutaneous pen injector RxNorm: 930653 1.2 Milligram(s) SQ daily 05/18/201609/13 Inactive Victoza 2-Dariusz 0.6 mg/0.1 mL (18 mg/3 mL) subcutaneous pen injector RxNorm: 074631 1.2 Milligram(s) SQ daily 04/16/201605/17 Inactive levothyroxine 50 mcg tablet RxNorm: 021017 TAKE 1 TABLET BY MOUTH ONCE DAILY 04/08/2016 12/03/2016 Inactive Generic For:SYNTHROID 50MCG TAB 04/08/2016 9:05:40 AM levothyroxine 50 mcg tablet RxNorm: 427603 1 Tablet(s) PO daily TAKE 1 TABLET BY MOUTH ONCE DAILY 04/08/2016 12/03/2016 Inactive Generic For:SYNTHROID 50MCG TAB N O T I C E PRESCRIPTION PREVIOUSLY AUTHORIZED BY DOCTOR:HENRY BAIG bisoprolol 5 mg-hydrochlorothiazide 6.25 mg tablet RxNorm: 728896 1 Tablet(s) PO BID 03/23/2016 03/17/2017 Inactive Victoza 2-Dariusz 0.6 mg/0.1 mL (18 mg/3 mL) subcutaneous pen injector RxNorm: 295832 0.6 Milligram(s) SQ daily 03/19/201604/15 Inactive Lexapro 5 mg tablet RxNorm: 698084 1 Tablet(s) PO QHS 201606/16/2016 Inactive gabapentin 600 mg tablet RxNorm: 781160 1 Capsule(s) PO TID 07/201601/26/2017 Inactive glimepiride 4 mg tablet RxNorm: 028672 1 Tablet(s) PO daily 06/05/2016 Inactive Victoza 3-Dariusz 0.6 mg/0.1 mL (18 mg/3 mL) subcutaneous pen injector RxNorm: 829899 0.6 Milligram(s) SQ daily x2 weeks, then 1.2 mg SQ daily 03/18/2016 Inactive metformin 500 mg tablet RxNorm: 586086 1 Tablet(s) PO UD 1.5 in morning, noon and 1 at bedtime 08/14/2015 08/07/2016 Inactive gabapentin 600 mg tablet RxNorm: 457171 1 Capsule(s) PO TID SHE IS ONLY TAKING 1 QD 08/14/2015 03/18/2016 Inactive fluticasone 50 mcg/actuation nasal spray,suspension RxNorm: 172208 [place] NASAL ONE SPRAY IN EACH NOSTRIL TWICE DAILY 07/26/2015 07/25/2015 Inactive fluticasone 50 mcg/actuation nasal spray,suspension RxNorm: 5198130 [place] NASAL ONE SPRAY IN EACH NOSTRIL TWICE DAILY 07/26/2015 02/20/2016 Inactive bisoprolol 5 mg-hydrochlorothiazide 6.25 mg tablet RxNorm: 592024 1 Tablet(s) PO daily 1 Tablet(s) PO BID 07/17/20152015 Inactive metformin 500 mg tablet RxNorm: 379350 1 Tablet(s) PO TID 1 Tablet(s) PO TID 07/17/2015 08/13/2015 Inactive Diflucan 100 mg tablet RxNorm: 846484 1 Tablet(s) PO daily 06/201507/21/2015 Inactive Zetia 10 mg tablet RxNorm: 785293 1 Tablet(s) PO daily 201506/03/2016 Inactive bisoprolol 5 mg-hydrochlorothiazide 6.25 mg tablet RxNorm: 033733 1 Tablet(s) PO BID 04/18/2015 07/16/2015 Inactive metformin 500 mg tablet RxNorm: 253237 1 Tablet(s) PO TID 03/0106/28/2015 Inactive glimepiride 4 mg tablet RxNorm: 481242 1 Tablet(s) PO daily 01/30/2015 Inactive levothyroxine 50 mcg tablet RxNorm: 361854 TAKE 1 TABLET BY MOUTH ONCE DAILY 01/31/2015 09/27/2015 Inactive Generic For:SYNTHROID 50MCG TAB N O T I C E PRESCRIPTION PREVIOUSLY AUTHORIZED BY DOCTOR:HENRY BAIG glimepiride 4 mg tablet RxNorm: 402482 1 Tablet(s) PO daily 07/29/2015 Inactive Invokana 100 mg tablet RxNorm: 7606175 1 Tablet(s) PO daily 07/16/2015 Inactive bisoprolol 5 mg-hydrochlorothiazide 6.25 mg tablet RxNorm: 990758 1 Tablet(s) PO BID 08/27/2014 02/22/2015 Inactive metformin 500 mg tablet RxNorm: 849282 1 Tablet(s) PO TID 08/1012/07/2014 Inactive metformin 500 mg tablet RxNorm: 235205 1 Tablet(s) PO TID 08/1008/09/2014 Inactive Fish Oil 1,000 mg capsule RxNorm: 1 Capsule(s) PO daily No Start Date Active Protonix 40 mg tablet,delayed release RxNorm: 508333 1 Tablet(s) PO QAM No Start Date Active furosemide 40 mg tablet RxNorm: 301239 1 Tablet(s) PO daily No Start Date Active pen needle, diabetic 31 gauge x 1/6" RxNorm: Miscellaneous No Start Date Active tramadol 50 mg tablet RxNorm: 958536 1 Tablet(s) PO TID as needed No Start Date Active nitroglycerin 0.4 mg sublingual tablet RxNorm: 403428 1 Tablet(s) SL as needed chest pain No Start Date Active amlodipine 5 mg tablet RxNorm: 345413 1 Tablet(s) PO daily No Start Date Active Entresto 24 mg-26 mg tablet RxNorm: 8463196 1 Tablet(s) PO BID No Start Date Active aspirin 81 mg chewable tablet RxNorm: 016277 1 Tablet(s) PO daily No Start Date 06/02/2017 Inactive Eliquis 5 mg tablet RxNorm: 2176026 1 Tablet(s) PO BID No Start Date 01/26/2018 Inactive bisoprolol-hydrochlorothiazide oral RxNorm: 93754 oral No Start Date 08/26/2014 Inactive levothyroxine 50 mcg tablet RxNorm: 389514 1 Tablet(s) PO daily No Start Date 01/30/2015 Inactive potassium chloride ER 20 mEq tablet,extended release RxNorm: 795691 1 Tablet(s) PO daily No Start Date 06/21/2017 Inactive digoxin 250 mcg tablet RxNorm: 494889 1 Tablet(s) PO daily No Start Date 01/26/2018 Inactive Invokana 100 mg tablet RxNorm: 1498732 1 Tablet(s) PO daily No Start Date 12/11/2014 Inactive Victoza 3-Dariusz 0.6 mg/0.1 mL (18 mg/3 mL) subcutaneous pen injector RxNorm: 146994 0.6 Milligram(s) SQ daily x2 weeks, then 1.2 mg SQ daily No Start Date 12/01/2015 Inactive Effient 10 mg tablet RxNorm: 426530 1 Tablet(s) PO QAM No Start Date 01/26/2018 Inactive Zetia 10 mg tablet RxNorm: 906853 1 Tablet(s) PO BID No Start Date 03/18/2016 Inactive metoprolol succinate ER 100 mg tablet,extended release 24 hr RxNorm: 636950 1 Tablet(s) PO daily No Start Date 2017 Inactive gabapentin 300 mg capsule RxNorm: 866768 1 Capsule(s) PO BID No Start Date 08/13/2015 Inactive Lasix 40 mg tablet RxNorm: 790034 1 Tablet(s) PO BID No Start Date 04/14/2017 Inactive Coreg 3.125 mg tablet RxNorm: 123757 1 Tablet(s) PO BID with meals No [...] 04/15/2017 stress test and then shipped to [facility] Follow Up 03/19/2017 stress test and then shipped to [place] diabetes mellitus 02/03/2017 headache 01/07/2017 diabetes mellitus 12/17/2016 diabetes mellitus 09/14/2016 diabetes mellitus 06/18/2016 medication follow up 04/16/2016 back pain 03/19/2016 back pain 11/14/2015 back pain 08/14/2015 diabetes mellitus 07/17/2015 Hospital Follow Up 03/25/2015 diabetes mellitus 12/04/2014 diabetes mellitus 08/14/2014 Results Observation Observation Code Item Item Code Result Date Culture Urine [id number] URINE CULTURE SEE NOTES 02/28/2018 Urine Culture [...] 28.8 pg 02/24/2018 Cbc With Differential Ord2 Lewis% 5.7 % 02/24/2018 Cbc With Differential Ord2 [...] 1.57 K/ul 02/24/2018 Cbc With Differential Ord2 Lewis ABS# 0.4 K/ul 02/24/2018 Cbc With Differential Ord2 Eos ABS# 0.1 K/ul 02/24/2018 Cbc With Differential Ord2 Baso ABS# 0.0 K/ul 02/24/2018 Comp Metabolic Ibg358 NA 138 mEq/L 02/24/2018 Comp Metabolic Qup934 K 4.4 mEq/L 02/24/2018 Comp Metabolic Vxo417 CL 100 mEq/L 02/24/2018 Comp Metabolic Khs646 CO2 27.0 mEq/L 02/24/2018 Comp Metabolic Yvl809 ANION GAP 15 02/24/2018 Comp Metabolic Jeu298 GLUCOSE 98 mg/dL 02/24/2018 Comp Metabolic Ixk615 Creat 1.0 mg/dL 02/24/2018 Comp Metabolic Msv542 eGFR 55 ml/min/1.73m2 02/24/2018 Comp Metabolic Xad273 BUN 25 mg/dL 02/24/2018 Comp Metabolic Guv839 B/C Ratio 24.3 Ratio 02/24/2018 Comp Metabolic Weg183 CALCIUM 9.4 mg/dL 02/24/2018 Comp Metabolic Hpm532 ALK PHOS 46 U/L 02/24/2018 Comp Metabolic Lbl976 AST(SGOT) 13 U/L 02/24/2018 Comp Metabolic Sei770 ALT(SGPT) 12 U/L 02/24/2018 Comp Metabolic Dpu653 BILI T 0.4 mg/dL 02/24/2018 Comp Metabolic Cor916 ALBUMIN 4.5 g/dL 02/24/2018 Comp Metabolic Ign194 TPRO 6.6 g/dL 02/24/2018 Comp Metabolic Vab765 GLOB 2.1 g/dL 02/24/2018 Comp Metabolic Fps138 A/G Ratio 2.1 Ratio 02/24/2018 Comp Metabolic Pab775 Osmo 280 mOsmo 02/24/2018 Culture Urine [id number] URINE CULTURE SEE NOTES 02/11/2018 Culture Urine [id number] Continued Results 02/11/2018 Urine Culture Ucult Complete >100,000 col/ml aerobic growth sent to ref lab 02/08/2018 %Hba1C Jkr911 % HbA1c 66597-6 6.8 % 01/12/2018 %Hba1C Bon328 Gluc Ave 148 mg/dL 01/12/2018 Metabolic Ord15 [...] 89.9 fl 01/11/2018 Cbc With Differential Ord2 Lewis% 7.8 % 01/11/2018 Cbc With Differential Ord2 [...] 1.70 K/ul 01/11/2018 Cbc With Differential Ord2 Lewis ABS# 0.4 K/ul 01/11/2018 Cbc With Differential Ord2 Eos ABS# 0.1 K/ul 01/11/2018 Cbc With Differential Ord2 Baso ABS# 0.0 K/ul 01/11/2018 Magnesium Ord90 Mag 1.7 mg/dL 01/11/2018 Test(s) Not Perfromed [id number] Test(s) Not Performed Test(s) Not Performed. See Below: 09/20/2017 Test(s) Not Perfromed [id number] TEST NAME BNP 09/20/2017 Test(s) Not Perfromed [id number] Rejection Reason Patient Refused due to lack of coving diganosis 09/20/2017 Test(s) Not Perfromed [id number] COMMENT Dorita Notified 09/20 Test(s) Not Perfromed [id number] Truck Hop Miguel Mclaughlin 2017 B Type Natriuretic Peptide Zke8689 B-MAILS SUPERVISOR 889.00 pg/ml 2017 Cbc With Differential Ord2 WBC 5.72 K/ul 09/20/2017 Cbc With Differential Ord2 RBC 3.88 M/ul 09/20/2017 Cbc With Differential Ord2 HGB 11.2 g/dl 09/20/2017 Cbc With Differential Ord2 Neut% 62.4 % 09/20/2017 Cbc With Differential Ord2 HCT 35.0 % 09/20/2017 Cbc With Differential Ord2 Lymph% 29.4 % 09/20/2017 Cbc With Differential Ord2 MCV 90.2 fl 09/20/2017 Cbc With Differential Ord2 Lewis% 5.6 % 09/20/2017 Cbc With Differential Ord2 [...] 1.68 K/ul 09/20/2017 Cbc With Differential Ord2 Lewis ABS# 0.3 K/ul 09/20/2017 Cbc With Differential Ord2 Eos ABS# 0.1 K/ul 09/20/2017 Cbc With Differential Ord2 Baso ABS# 0.0 K/ul 09/20/2017 %Hba1C Rzg777 % HbA1c 54895-3 7.9 % 09/20/2017 %Hba1C Ikm022 Gluc Ave 180 mg/dL 09/20/2017 Magnesium Ord90 [...] 28.3 pg 07/07/2017 Cbc With Differential Ord2 Lewis% 7.9 % 07/07/2017 Cbc With Differential Ord2 [...] 1.34 K/ul 07/07/2017 Cbc With Differential Ord2 Lewis ABS# 0.4 K/ul 07/07/2017 Cbc With Differential Ord2 Eos ABS# 0.1 K/ul 07/07/2017 Cbc With Differential Ord2 Baso ABS# 0.0 K/ul 07/07/2017 Comp Metabolic Tzf884 NA 142 mEq/L 07/07/2017 Comp Metabolic Knt575 K 4.3 mEq/L 07/07/2017 Comp Metabolic Rnw076 CL 105 mEq/L 07/07/2017 Comp Metabolic Vql549 CO2 28.0 mEq/L 07/07/2017 Comp Metabolic Ytr917 ANION GAP 13 07/07/2017 Comp Metabolic Bqn722 GLUCOSE 197 mg/dL 07/07/2017 Comp Metabolic Jcl905 Creat 1.1 mg/dL 07/07/2017 Comp Metabolic Kwj939 eGFR 51 ml/min/1.73m2 07/07/2017 Comp Metabolic Zbu982 BUN 21 mg/dL 07/07/2017 Comp Metabolic Xqn298 B/C Ratio 18.9 Ratio 07/07/2017 Comp Metabolic Oaj010 CALCIUM 8.9 mg/dL 07/07/2017 Comp Metabolic Zep758 ALK PHOS 51 U/L 07/07/2017 Comp Metabolic Jlw673 AST(SGOT) 11 U/L 07/07/2017 Comp Metabolic Byp638 ALT(SGPT) 11 U/L 07/07/2017 Comp Metabolic Rav796 BILI T 0.3 mg/dL 07/07/2017 Comp Metabolic Rhf023 ALBUMIN 4.2 g/dL 07/07/2017 Comp Metabolic Smc844 TPRO 6.0 g/dL 07/07/2017 Comp Metabolic Zin001 GLOB 1.8 g/dL 07/07/2017 Comp Metabolic Kkj656 A/G Ratio 2.3 Ratio 07/07/2017 Comp Metabolic Pkl810 Osmo 292 mOsmo 07/07/2017 Digoxin Ord9 DIGOXIN 1.3 NG/ML 07/07/2017 Tsh Ord6 TSH (3rd IS) 2.19 uIU/mL 07/07/2017 B Type Natriuretic Peptide Ozl7488 B-MAILS SUPERVISOR 801.00 pg/ml 2017 Culture Urine [id number] URINE CULTURE SEE NOTES 04/19/2017 Culture Urine [id number] Continued Results 04/19/2017 Urine Culture Ucult Complete >100,000 col/ml aerobic growth sent to ref lab 04/16/2017 Comp Metabolic Adc187 NA 140 mEq/L 01/26/2017 Comp Metabolic Tug667 K 4.6 mEq/L 01/26/2017 Comp Metabolic Xbj554 CL 102 mEq/L 01/26/2017 Comp Metabolic Qrk162 CO2 28.0 mEq/L 01/26/2017 Comp Metabolic Crw278 ANION GAP 15 01/26/2017 Comp Metabolic Ihs009 GLUCOSE 173 mg/dL 01/26/2017 Comp Metabolic Nwm723 Creat 1.0 mg/dL 01/26/2017 Comp Metabolic Hgu833 eGFR 56 ml/min/1.73m2 01/26/2017 Comp Metabolic Ifn732 BUN 23 mg/dL 01/26/2017 Comp Metabolic Irn745 B/C Ratio 22.5 Ratio 01/26/2017 Comp Metabolic Mby784 CALCIUM 9.4 mg/dL 01/26/2017 Comp Metabolic Baz454 ALK PHOS 52 U/L 01/26/2017 Comp Metabolic Pfn735 AST(SGOT) 12 U/L 01/26/2017 Comp Metabolic Mxg492 ALT(SGPT) 12 U/L 01/26/2017 Comp Metabolic Nxa014 BILI T 0.5 mg/dL 01/26/2017 Comp Metabolic Mpe210 ALBUMIN 4.4 g/dL 01/26/2017 Comp Metabolic Xza103 TPRO 6.5 g/dL 01/26/2017 Comp Metabolic Vux185 GLOB 2.1 g/dL 01/26/2017 Comp Metabolic Cye725 A/G Ratio 2.1 Ratio 01/26/2017 Comp Metabolic Gpn929 Osmo 287 mOsmo 01/26/2017 Cbc With Differential [...] 29.2 pg 01/26/2017 Cbc With Differential Ord2 Lewis% 4.9 % 01/26/2017 Cbc With Differential Ord2 [...] 1.75 K/ul 01/26/2017 Cbc With Differential Ord2 Lewis ABS# 0.4 K/ul 01/26/2017 Cbc With Differential Ord2 Eos ABS# 0.1 K/ul 01/26/2017 Cbc With Differential Ord2 Baso ABS# 0.0 K/ul 01/26/2017 %Hba1C Yqw686 % HbA1c 10061-3 7.8 % 01/26/2017 %Hba1C Tdg725 Gluc Ave 177 mg/dL 01/26/2017 Lipid Ord30 CHOL 239 mg/dL 01/26/2017 Lipid Ord30 HDL 40.0 mg/dl 01/26/2017 Lipid Ord30 TRIG 325 mg/dL 01/26/2017 Lipid Ord30 LDL 134 mg/dL 01/26/2017 Lipid Ord30 C/HDL 6.0 Ratio 01/26/2017 Free T4 Zyk099 FREE T4 0.95 ng/dL 01/26/2017 Tsh Ord6 [...] Metabolic Ord15 CALCIUM 9.0 mg/dL 09/08/2016 %Hba1C Ffr626 % HbA1c 17415-4 7.5 % 09/08/2016 %Hba1C Wou707 Gluc Ave 169 mg/dL 09/08/2016 Tsh Ord6 hTSH II 2.64 uIU/mL 03/13/2016 %Hba1C Lzl877 % HbA1c 66210-4 8.2 % 03/13/2016 %Hba1C Oij046 Gluc Ave 189 mg/dL 03/13/2016 Lipid Ord30 CHOL 233 mg/dL 03/13/2016 Lipid Ord30 HDL 46.0 mg/dl 03/13/2016 Lipid Ord30 TRIG 276 mg/dL 03/13/2016 Lipid Ord30 LDL 132 mg/dL 03/13/2016 Lipid Ord30 C/HDL 5.1 Ratio 03/13/2016 Free T4 Clw143 FREE T4 0.94 ng/dL 03/13/2016 Cbc With [...] 29.5 % 03/13/2016 Cbc With Differential Ord2 Lewis% 6.1 % 03/13/2016 Cbc With Differential Ord2 [...] 1.63 K/ul 03/13/2016 Cbc With Differential Ord2 Lewis ABS# 0.3 K/ul 03/13/2016 Cbc With Differential Ord2 Eos ABS# 0.1 K/ul 03/13/2016 Cbc With Differential Ord2 Baso ABS# 0.0 K/ul 03/13/2016 Comp Metabolic Fjk769 NA 139 mEq/L 03/13/2016 Comp Metabolic Sbc291 K 4.3 mEq/L 03/13/2016 Comp Metabolic Jct280 CL 103 mEq/L 03/13/2016 Comp Metabolic Pwe556 CO2 28.0 mEq/L 03/13/2016 Comp Metabolic Pgv198 ANION GAP 12 03/13/2016 Comp Metabolic Hre457 GLUCOSE 200 mg/dL 03/13/2016 Comp Metabolic Oza755 Creat 0.9 mg/dL 03/13/2016 Comp Metabolic Rge144 eGFR 69 ml/min/1.73m2 03/13/2016 Comp Metabolic Ase437 BUN 19 mg/dL 03/13/2016 Comp Metabolic Krc475 B/C Ratio 22.4 Ratio 03/13/2016 Comp Metabolic Jmh147 CALCIUM 9.0 mg/dL 03/13/2016 Comp Metabolic Zzi229 ALK PHOS 57 U/L 03/13/2016 Comp Metabolic Sxm971 AST(SGOT) 13 U/L 03/13/2016 Comp Metabolic Rdb452 ALT(SGPT) 16 U/L 03/13/2016 Comp Metabolic Yrc326 BILI T 0.4 mg/dL 03/13/2016 Comp Metabolic Qqh895 ALBUMIN 4.2 g/dL 03/13/2016 Comp Metabolic Sgy686 TPRO 6.3 g/dL 03/13/2016 Comp Metabolic Bln838 GLOB 2.1 g/dL 03/13/2016 Comp Metabolic Fvl307 A/G Ratio 2.0 Ratio 03/13/2016 Comp Metabolic Pei401 Osmo 285 mOsmo 03/13/2016 %Hba1C Omg277 % HbA1c 19395-2 8.3 % 11/14/2015 %Hba1C Fju306 Gluc Ave 192 mg/dL 11/14/2015 Lipid Ord30 CHOL 210 mg/dL 07/19/2015 Lipid Ord30 HDL 43.0 mg/dl 07/19/2015 Lipid Ord30 TRIG 311 mg/dL 07/19/2015 Lipid Ord30 LDL 105 mg/dL 07/19/2015 Lipid Ord30 C/HDL 4.9 Ratio 07/19/2015 %Hba1C Slt855 % HbA1c 31536-6 7.6 % 07/19/2015 %Hba1C Fpy676 Gluc Ave 171 mg/dL 07/19/2015 Cbc With [...] 28.8 pg 07/19/2015 Cbc With Differential Ord2 Lewis% 6.1 % 07/19/2015 Cbc With Differential Ord2 [...] 1.63 K/ul 07/19/2015 Cbc With Differential Ord2 Lewis ABS# 0.3 K/ul 07/19/2015 Cbc With Differential Ord2 Eos ABS# 0.1 K/ul 07/19/2015 Cbc With Differential Ord2 Baso ABS# 0.0 K/ul 07/19/2015 Cbc With Differential Ord2 New Analyzer Notice Please note new ref ranges starting 03-27-2015 due to implemntation of new five part differential hematolgy analyzer. 07/19/2015 Comp Metabolic Jcs543 NA 138 mEq/L 07/19/2015 Comp Metabolic Eox278 K 4.3 mEq/L 07/19/2015 Comp Metabolic Tee050 CL 100 mEq/L 07/19/2015 Comp Metabolic Ucf423 CO2 33.0 mEq/L 07/19/2015 Comp Metabolic Kqg027 ANION GAP 9 07/19/2015 Comp Metabolic Fev129 GLUCOSE 149 mg/dL 07/19/2015 Comp Metabolic Zfq056 Creat 0.9 mg/dL 07/19/2015 Comp Metabolic Fro621 eGFR 62 ml/min/1.73m2 07/19/2015 Comp Metabolic Whv181 BUN 19 mg/dL 07/19/2015 Comp Metabolic Xpd704 B/C Ratio 20.2 Ratio 07/19/2015 Comp Metabolic Gcl844 CALCIUM 9.5 mg/dL 07/19/2015 Comp Metabolic Quv402 ALK PHOS 52 U/L 07/19/2015 Comp Metabolic Tzn534 AST(SGOT) 15 U/L 07/19/2015 Comp Metabolic Qhy902 ALT(SGPT) 14 U/L 07/19/2015 Comp Metabolic Iuv992 BILI T 0.5 mg/dL 07/19/2015 Comp Metabolic Tct356 ALBUMIN 4.4 g/dL 07/19/2015 Comp Metabolic Nxh279 TPRO 6.4 g/dL 07/19/2015 Comp Metabolic Trv242 GLOB 2.0 g/dL 07/19/2015 Comp Metabolic Hry223 A/G Ratio 2.2 Ratio 07/19/2015 Comp Metabolic Lhp608 Osmo 281 mOsmo 07/19/2015 Free T4 Aaw338 FREE T4 0.92 ng/dL 07/19/2015 Tsh Ord6 hTSH II 1.95 uIU/mL 07/19/2015 Microalbumin Vqg233 MicroAlb 0.4 mg/dL 07/19/2015 Comp Metabolic Hub908 NA 137 mEq/L 12/04/2014 Comp Metabolic Fth895 K 4.0 mEq/L 12/04/2014 Comp Metabolic Bbn439 CL 100 mEq/L 12/04/2014 Comp Metabolic Nzx020 CO2 29.0 mEq/L 12/04/2014 Comp Metabolic Zha978 ANION GAP 12 12/04/2014 Comp Metabolic Hsb101 GLUCOSE 171 mg/dL 12/04/2014 Comp Metabolic Wyq271 Creat 1.0 mg/dL 12/04/2014 Comp Metabolic Czm705 eGFR 60 ml/min/1.73m2 12/04/2014 Comp Metabolic Yfe595 BUN 25 mg/dL 12/04/2014 Comp Metabolic Bay987 B/C Ratio 25.8 Ratio 12/04/2014 Comp Metabolic Npj088 CALCIUM 9.4 mg/dL 12/04/2014 Comp Metabolic Kkx815 ALK PHOS 60 U/L 12/04/2014 Comp Metabolic Hzc879 AST(SGOT) 13 U/L 12/04/2014 Comp Metabolic Ksl242 ALT(SGPT) 17 U/L 12/04/2014 Comp Metabolic Hfl013 BILI T 0.4 mg/dL 12/04/2014 Comp Metabolic Ikm918 ALBUMIN 4.4 g/dL 12/04/2014 Comp Metabolic Iwo529 TPRO 6.9 g/dL 12/04/2014 Comp Metabolic Ggs784 GLOB 2.5 g/dL 12/04/2014 Comp Metabolic Pkh409 A/G Ratio 1.8 Ratio 12/04/2014 Comp Metabolic Rra764 Osmo 282 mOsmo 12/04/2014 Tsh Ord6 hTSH II 1.78 uIU/mL 12/04/2014 %Hba1C Gdz801 % HbA1c 78516-7 8.3 % 12/04/2014 %Hba1C Xcc206 Gluc Ave 192 mg/dL 12/04/2014 Free T4 Ptk304 FREE T4 0.85 ng/dL 12/04/2014 Lipid Ord30 [...] Codes Date URINALYSIS NONAUTO W/O SCOPE CPT-4: 60333 02/24/2018 URINALYSIS NONAUTO W/O SCOPE CPT-4: 74441 02/07/2018 ADMIN INFLUENZA VIRUS VAC CPT-4: G0008 11/25/2017 FLU VAC NO PRSV 4 ANABELLE 3 YRS+ CPT-4: 83107 11/25/2017 GLUC MONITOR CONT PHYS I&R CPT-4: 23378 10/26/2017 GLUCOSE MONITORING CONT CPT-4: 14636 10/11/2017 URINALYSIS NONAUTO W/O SCOPE CPT-4: 39001 04/15/2017 FLU VAC NO PRSV 4 ANABELLE 3 YRS+ CPT-4: 92272 12/17/2016 ADMIN INFLUENZA VIRUS VAC CPT-4: G0008 12/17/2016 FLU VACC PRSV FREE INC ANTIG Assigned to/Nery Daniels, Formatting Model/CDA Sections CPT-4: 07880Smodlia 11/14/2015 ADMIN INFLUENZA VIRUS VAC CPT-4: G0008 11/14/2015 ADMIN INFLUENZA VIRUS VAC Assigned to/Nery Daniels, Formatting Model/CDA Sections CPT-4: G8602Erhnlbk 12/04/2014 FLU VACC 4 ANABELLE 3 YRS PLUS IM SNOMED CT: [id number] CPT-4: 49098 12/04/2014 Vital Signs Date Vital 02/24/2018 Blood Pressure 1: 130/62 Code : 8480-6 BMI: 28.9 Code : 76339-3 Heart Rate 1 : 57 bpm Height: 5' SpO2: 99% Weight: 148 lbs 01/27/2018 Blood Pressure 1: 142/70 Code : 8480-6 BMI: 29.5 Code : 67058-4 Heart Rate 1 : 61 bpm Height: 5' SpO2: 99% Weight: 151 lbs 11/25/2017 Blood Pressure 1: 148/72 Code : 8480-6 BMI: 30.9 Code : 25987-4 Heart Rate 1 : 62 bpm Height: 5' SpO2: 98% Weight: 158 lbs 10/26/2017 Blood Pressure 1: 156/74 Code : 8480-6 BMI: 31.2 Code : 73493-4 Heart Rate 1 : 71 bpm Height: 5' SpO2: 98% Weight: 160 lbs 10/11/2017 Blood Pressure 1: 128/70 Code : 8480-6 BMI: 30.9 Code : 70036-4 Heart Rate 1 : 70 bpm Height: 5' SpO2: 95% Weight: 158 lbs 09/22/2017 Blood Pressure 1: 110/52 Code : 8480-6 BMI: 30.9 Code : 99754-7 Heart Rate 1 : 72 bpm Height: 5' SpO2: 99% Weight: 158 lbs 07/06/2017 Blood Pressure 1: 120/85 Code : 8480-6 BMI: 31.4 Code : 06441-4 Heart Rate 1 : 74 bpm Height: 5' SpO2: 92% Weight: 161 lbs 06/03/2017 Blood Pressure 1: 120/62 Code : 8480-6 BMI: 31.1 Code : 48548-5 Heart Rate 1 : 73 bpm Height: 5' SpO2: 99% Weight: 159 lbs 05/12/2017 Blood Pressure 1: 132/68 Code : 8480-6 BMI: 32.4 Code : 80341-2 Heart Rate 1 : 95 bpm Height: 5' SpO2: 97% Weight: 166 lbs 04/15/2017 Blood Pressure 1: 128/84 Code : 8480-6 BMI: 32.4 Code : 22782-3 Heart Rate 1 : 62 bpm Height: 5' SpO2: 97% Weight: 166 lbs 03/19/2017 Blood Pressure 1: 112/60 Code : 8480-6 BMI: 32.0 Code : 64369-7 Height: 5' Weight: 164 lbs 02/03/2017 Blood Pressure 1: 128/76 Code : 8480-6 BMI: 33.4 Code : 97998-2 Heart Rate 1 : 91 bpm Height: 5' SpO2: 99% Weight: 171 lbs 01/07/2017 Blood Pressure 1: 126/74 Code : 8480-6 BMI: 34.2 Code : 66407-1 Heart Rate 1 : 83 bpm Height: 5' SpO2: 97% Weight: 175 lbs 12/17/2016 Blood Pressure 1: 122/72 Code : 8480-6 BMI: 34.0 Code : 96772-6 Heart Rate 1 : 78 bpm Height: 5' SpO2: 97% Weight: 174 lbs 09/14/2016 Blood Pressure 1: 128/86 Code : 8480-6 BMI: 33.8 Code : 66300-5 Heart Rate 1 : 88 bpm Height: 5' SpO2: 96% Weight: 173 lbs 06/18/2016 Blood Pressure 1: 12274 Code : 8480-6 BMI: 34.8 Code : 99522-8 Heart Rate 1 : 78 bpm Height: 5' SpO2: 98% Weight: 178 lbs 04/16/2016 Blood Pressure 1: 134/68 Code : 8480-6 BMI: 35.0 Code : 80739-4 Heart Rate 1 : 67 bpm Height: 5' SpO2: 97% Weight: 179 lbs 03/19/2016 Blood Pressure 1: 132/74 Code : 8480-6 BMI: 34.6 Code : 36293-3 Heart Rate 1 : 74 bpm Height: 5' SpO2: 97% Weight: 177 lbs 11/14/2015 Blood Pressure 1: 132/70 Code : 8480-6 BMI: 35.2 Code : 50734-6 Heart Rate 1 : 68 bpm Height: 5' Weight: 180 lbs 08/14/2015 Blood Pressure 1: 122/74 Code : 8480-6 BMI: 33.8 Code : 53524-4 Heart Rate 1 : 73 bpm Height: 5' SpO2: 93% Weight: 173 lbs 07/17/2015 Blood Pressure 1: 138/78 Code : 8480-6 BMI: 34.0 Code : 59150-4 Heart Rate 1 : 85 bpm Height: 5' SpO2: 97% Weight: 174 lbs 03/25/2015 Blood Pressure 1: 130/78 Code : 8480-6 BMI: 33.2 Code : 13524-7 Heart Rate 1 : 77 bpm Height: 5' SpO2: 97% Weight: 170 lbs 12/04/2014 Blood Pressure 1: 120/74 Code : 8480-6 BMI: 35.4 Code : 91200-9 Heart Rate 1 : 67 bpm Height: 5' SpO2: 94% Weight: 181 lbs 5 oz 08/14/2014 Blood Pressure 1: 132/68 Code : 8480-6 BMI: 32.1 Code : 43606-7 Heart Rate 1 : 62 bpm Height: [...] data Encounters Encounter Performer Location Codes Date ([id number]) 45414 EST. PATIENT, LEVEL IV Diagnosis: Low back pain[ICD10: M54.5] Diagnosis: Dysuria[ICD10: R30.0] Diagnosis: Type 2 diabetes mellitus with hyperglycemia[ICD10: E11.65] Claudia Nicole MD, [facility] CPT-4: 56484 02/24/2018 [id number]) 70066 EST. PATIENT, LEVEL IV Diagnosis: Type 2 diabetes mellitus with hyperglycemia[ICD10: E11.65] Diagnosis: Essential (primary) hypertension[ICD10: I10] Diagnosis: Major depressive disorder, recurrent, mild[ICD10: F33.0] Diagnosis: Generalized anxiety disorder[ICD10: F41.1] Claudia Nicole MD, [facility] CPT-4: 12198 01/27/2018 [id number]) 88769 EST. PATIENT, LEVEL IV Diagnosis: Type 2 diabetes mellitus with hyperglycemia[ICD10: E11.65] Diagnosis: Essential (primary) hypertension[ICD10: I10] Diagnosis: Encounter for immunization[ICD10: Z23] Diagnosis: Carpal tunnel syndrome, left upper limb[ICD10: G56.02] Claudia Nicole MD, [facility] CPT-4: 00460 11/25/2017 ([id number]) 87498 EST. PATIENT, LEVEL III Diagnosis: Type 2 diabetes mellitus with hyperglycemia[ICD10: E11.65] Claudia Nicole MD, [facility] CPT-4: 51912 10/26/2017 ([id number]) Miscellaneous no charge Diagnosis: Type 2 diabetes mellitus with hyperglycemia[ICD10: E11.65] Claudia Nicole MD, [facility] CPT-4: 55155 10/18/2017 ([id number]) 54916 EST. 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 CPT-4: 72796 09/22/2017 ([id number]) 53844 EST. PATIENT, LEVEL IV Diagnosis: Type 2 diabetes mellitus with hyperglycemia[ICD10: E11.65] Diagnosis: Paroxysmal atrial fibrillation[ICD10: I48.0] Diagnosis: Essential (primary) hypertension[ICD10: I10] Mila Nicole MD, [facility] CPT-4: 38786 07/06/2017 ([id number]) 42144 EST. PATIENT, LEVEL IV Diagnosis: Essential (primary) hypertension[ICD10: I10] Diagnosis: Type 2 diabetes mellitus with hyperglycemia[ICD10: E11.65] Diagnosis: Paroxysmal atrial fibrillation[ICD10: I48.0] Claudia Nicole MD, [facility] CPT-4: 32798 06/03/2017 81628 EST. PATIENT, LEVEL III Diagnosis: Generalized anxiety disorder[ICD10: F41.1] Diagnosis: Major depressive disorder, recurrent, moderate[ICD10: F33.1] Diagnosis: Paroxysmal tachycardia, unspecified[ICD10: I47.9] Gardenia Nicole MD, [facility] CPT-4: 53096 05/12/2017 ([id number]) 33660 EST. PATIENT, LEVEL IV Diagnosis: Essential (primary) hypertension[ICD10: I10] Diagnosis: Cough[ICD10: R05] Diagnosis: Dysuria[ICD10: R30.0] Mila Nicole MD, [facility] CPT-4: 02429 04/15/2017 ([id number]) 30277 EST. PATIENT, LEVEL IV Diagnosis: Type 2 diabetes mellitus with hyperglycemia[ICD10: E11.65] Diagnosis: Essential (primary) hypertension[ICD10: I10] Mila Nicole MD, [facility] CPT-4: 51045 03/19/2017 ([id number]) 56443 EST. PATIENT, LEVEL III Diagnosis: Type 2 diabetes mellitus with hyperglycemia[ICD10: E11.65] Mila Nicole MD , [facility] CPT-4: 60180 02/03/2017 81704 EST. PATIENT, LEVEL IV Diagnosis: Generalized anxiety disorder[ICD10: F41.1] Diagnosis: Type 2 diabetes mellitus with hyperglycemia[ICD10: E11.65] Diagnosis: Essential (primary) hypertension[ICD10: I10] Gardenia Nicole MD, [facility] CPT-4: 69685 01/07/2017 ([id number]) 50700 EST. PATIENT, LEVEL III Diagnosis: Type 2 diabetes mellitus with hyperglycemia[ICD10: E11.65] Diagnosis: Encounter for immunization[ICD10: Z23] Mila Nicole MD [facility] CPT-4: 03847 12/17/2016 ([id number]) 78234 EST. PATIENT, LEVEL IV Diagnosis: Type 2 diabetes mellitus with hyperglycemia[ICD10: E11.65] Diagnosis: Essential (primary) hypertension[ICD10: I10] Diagnosis: Major depressive disorder, recurrent, mild[ICD10: F33.0] Mila Nicole MD [facility] CPT-4: 54026 09/14/2016 ([id number]) 15715 EST. 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 CPT-4: 12673 06/18/2016 ([id number]) 48640 EST. PATIENT, LEVEL IV Diagnosis: Type 2 diabetes mellitus with hyperglycemia[ICD10: E11.65] Diagnosis: Essential (primary) hypertension[ICD10: I10] Mila Nicole MD [facility] CPT-4: 54434 04/16/2016 ([id number]) 87472 EST. 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 CPT-4: 83286 03/19/2016 ([id number]) 10309 EST. PATIENT, LEVEL IV Diagnosis: Type 2 diabetes mellitus with hyperglycemia[ICD10: E11.65] Diagnosis: Encounter for immunization[ICD10: Z23] Diagnosis: Essential (primary) hypertension[ICD10: I10] Mila Nicole MD [facility] CPT-4: 14846 11/14/2015 ([id number]) 46592 EST. PATIENT, LEVEL IV Diagnosis: Type 2 diabetes mellitus with hyperglycemia[ICD10: E11.65] Diagnosis: Essential (primary) hypertension[ICD10: I10] Diagnosis: Low back pain[ICD10: M54.5] Mila Nicole MD [facility] CPT- 4: 72575 08/14/2015 [id number] 60880 EST. PATIENT, LEVEL IV Diagnosis: Type 2 diabetes mellitus with hyperglycemia[ICD10: E11.65] Diagnosis: Essential (primary) hypertension[ICD10: I10] Diagnosis: Hypothyroidism, unspecified[ICD10: E03.9] Mila Nicole MD, [facility] CPT-4: 14469 07/17/2015 ([id number]) 59601 EST. PATIENT, LEVEL IV Diagnosis: Essential (primary) hypertension[ICD10: I10] Diagnosis: Type 2 diabetes mellitus with hyperglycemia[ICD10: E11.65] Diagnosis: Headache[ICD10: R51] Gardenia Nicole MD, [facility] CPT-4: 48572 03/25/2015 ([id number] 70233 EST. PATIENT, LEVEL IV Diagnosis: ESSENTIAL HYPERTENSION[ICD9: 401.9] Diagnosis: DIABETES TYPE II[ICD9: 250.00] Diagnosis: Aortic stenosis[ICD9: 424.1] Mila Nicole MD, [facility] CPT- 4: 13042 12/04/2014 ([id number]) OFFICE VISIT, NEW - LEVEL 4 Diagnosis: ESSENTIAL HYPERTENSION[ICD9: 401.9] Diagnosis: Diabetes mellitus out of control[ICD9: 250.02] Mila Nicole MD, [facility] CPT-4: 57666 08/14/2014 Plan of Care Planned Activity Notes Codes Status Date Visit Plan: Low back pain-xray lumbar spine Dysuria- improved-will culture urine YI-pcuzom-om changes today 02/24/2018 Appointment: Claudia Pruitt WPtel: [address] [place], [place] [phone] (15 min) Moderate 02/24/2018 Patient Education: Patient [...] medications. 01/27/2018 Appointment: Claudia Pruitt WPtel: [phone] [phone] (15 min) Moderate 01/27/2018 Patient Education: Patient [...] improve or if any worse 11/25/2017 Appointment: Caludia Pruitt WPtel: [phone] [phone] [place] (15 min) Moderate 11/25/2017 Patient Education: Patient Medication Summary Completed 11/25/2017 App[facility]ment[phone] [place] (15 min) Moderate 10/28/2017 Visit Plan: Diabetes [...] Appointment: Claudia Pruitt WPtel: [phone] [phone] (15 min) Moderate 10/26/2017 Patient Education: Patient [...] of plan. 10/11/2017 Appointment: Claudia Pruitt WPtel: [phone] [phone] (30 min) Complex 10/11/2017 Patient Education: Patient [...] Education: Patient Medication Summary Completed 09/22/2017 Appointment: Core[facility]Michael merritty [phone] [facility] [place] (15 min) Moderate 09/13/2017 Appointment: [facility]ila [phone] [facility] [place] (15 min) Moderate 09/07/2017 Visit Plan: [...] uncontrolled. 07/06/2017 Appointment: [phone] [facility] [place] (15 min) Moderate 07/06/2017 Patient Education: Patient Medication Summary Completed 07/06/2017 Appointment: [facility] [phone] [facility] [place] (15 min) Moderate 06/07/2017 Visit Plan: [...] less controlled. 06/03/2017 Appointment: [phone] [phone] (30 min) Complex 06/03/2017 Patient Education: Patient [...] plan 05/12/2017 Appointment: Gardenia Shah [facility]Ptel[facility] [phone] [facility] [place] (30 min) Complex 05/12/2017 Patient Education: [...] medication. 04/15/2017 Appointment: Mila Nicole WPtel: [phone] [facility] (15 min) Moderate 04/15/2017 Patient Education: Patient [...] daily. 03/19/2017 Appointment: [phone] [facility] (15 min) Moderate 03/19/2017 Patient Education: Patient Medication Summary Completed 03/19/2017 Appointment: [facility] [phone] [facility] (15 min) Moderate 02/24/2017 Visit Plan: [...] at HS 02/03/2017 Appointment: [facility] [phone] [facility] (15 min) Moderate 02/03/2017 Patient Education: [...] acute concerns. 01/07/2017 Appointment: Gardenia Shah [facility]Ptel[facility] [phone] [facility] (30 min) Complex 01/07/2017 Patient Education: Patient [...] to allow for greater blood glucose control. [id number], 02/2018 junior nordisk 12/17/2016 Appointment: Mila Nicole WPtel: [phone] [facility] (15 min) Moderate 12/17/2016 Patient Education: Patient Medication Summary Completed 12/17/2016 Patient Education: Obesity Completed 12/17/2016 Appointment: Mila Nicole WPtel: [phone] [facility] (15 min) Moderate 12/14/2016 Visit Plan: [...] medications. 09/14/2016 Appointment: [phone] [facility] [place] (15 min) Moderate 09/14/2016 Patient Education: [...] home. 06/18/2016 Appointment: Mila Nicole WPtel: [phone] [facility] (15 min) Moderate 06/18/2016 Patient Education: [...] home. 04/16/2016 Appointment: Mila Nicole WPtel: [phone] [facility] (15 min) Moderate 04/16/2016 Patient Education: Patient [...] gabapentin 03/19/2016 Appointment: [phone] [facility] (15 min) Moderate 03/19/2016 Patient Education: [...] at home. 11/14/2015 Appointment: [phone] [facility] (15 min) Moderate 11/14/2015 Patient Education: [...] check Hgba1c 07/17/2015 Appointment: Mila Nicole WPtel: [facility] (15 min) Moderate 07/17/2015 Patient Education: [...] Hypertension Completed 03/25/2015 Appointment: [facility]Ptel[facility] [phone] [facility] (15 min) Moderate 01/14/2015 Visit Plan: [...] control. 12/04/2014 Appointment: [facility]Ptel[phone] [facility] (15 min) Moderate 12/04/2014 Patient Education: [...] glucose control. 08/14/2014 Appointment: Mila Nicole WPtel: [address] [place], [place] [address] [place] (S) New Patient 08/14/2014 Patient Education: Patient Medication Summary Completed 08/14/2014 Patient Education: Hypertension Completed 08/14/2014 Instructions Comment tylenol 2 pills three times daily x [...] not improve or if any worse . Hypertension - well controlled - continue [...] months based on previous levels of control. Decrease victoza back to your previous [...] HS INCREASE BASAGLAR TO 18 UNITS DAILY . [...] log of blood sugars to appt. . Diabetes Mellitus - controlled - per [...] start on diflucan treatment - check Hgba1c CHECK LABS AND UA XRAY LUMBAR . Low back pain-xray lumbar spine Dysuria- improved-will culture urine HO-qlogga-se changes today cut back on carbohydrates in [...] to allow for greater blood glucose control. [id number], 02/2018 junior nordisk I think the entresto [...] Peripheral neuropathy - continue with gabapentin . Anxiety - the patient has uncontrolled [...] continue with insulin at 10 units daily. Monitor your blood pressure at home and [...]
--- OUTSIDE RECORDS SUMMARY | 2018-03-30 10:46 | XMS REPORT | CCD ---
Author Author [facility] Organization [facility] Address [address] [place] [address] Phone Care Team Providers Care Diamond Grader Name Role Phone PP Unavailable CCM Unavailable Summary Purpose Interface Exchange Insurance Providers Payer name Policy type / Coverage type Covered libertarian ID Effective Begin Date Effective End Date WPS Medicare Part B Medicare Part B [id number] Unknown AARP Medicare Part B [id number] Unknown Family history Mother Diagnosis Age At [...] Unknown 3 08/14/[address]: 954732598 Never smoker 08/14/[address]: 870281537 Never drinks alcohol 08/14/2014 Allergies, Adverse Reactions, Alerts Substance Reaction Codes Entered Date Inactivated Date Status * OTHER REACTION - SEE ANSWER BOX Invokana, Victoza Unknown 07/2017 No Inactive Date Active Paxil has blurred vision RxNorm: 518450 08/14/2014 No Inactive Date Active Lipitor RxNorm: 70318 08/14/2014 No Inactive Date Active Past Medical [...] Fill Instructions Keflex 500 mg capsule RxNorm: 736563 1 Capsule(s) PO TID 201702/10/2018 Inactive Keflex 500 mg capsule RxNorm: 152775 1 Capsule(s) PO TID 201702/20/2018 Inactive metoprolol succinate ER 200 mg tablet,extended release 24 hr RxNorm: 990463 1 Tablet(s) PO daily 01/27/2018 No Stop Date Active Eliquis 2.5 mg tablet RxNorm: 4168568 1 Tablet(s) PO BID 2017 No Stop Date Active digoxin 125 mcg tablet RxNorm: 953457 1 Tablet(s) PO daily No Stop Date Active Basaglar KwikPen U-100 Insulin 100 unit/mL (3 mL) subcutaneous RxNorm: 2113214 20 Unit(s) SQ daily 11/25/201705/23 Active UPDATE RX metformin 500 mg tablet RxNorm: 901376 1 Tablet(s) PO UD 1.5 in morning, noon and 1 at bedtime 10/28/2017 10/22/2018 Active Basaglar KwikPen U-100 Insulin 100 unit/mL (3 mL) subcutaneous RxNorm: 7212838 18 Unit(s) SQ daily 10/26/201711/24 Inactive UPDATE RX levothyroxine 50 mcg tablet RxNorm: 014700 TAKE 1 TABLET BY MOUTH ONCE DAILY 10/15/2017 06/11/2018 Active Generic For:SYNTHROID 50MCG TAB 10/15/2017 9:59:00 AM escitalopram 10 mg tablet RxNorm: 102568 1 Tablet(s) PO QPM 01/201809/16/2018 Active Generic For:LEXAPRO 5MG 01/07/2017 9:05:43 AM Basaglar KwikPen U-100 Insulin 100 unit/mL (3 mL) subcutaneous RxNorm: 3732277 15 Unit(s) SQ daily 09/22/201710/25 Inactive potassium chloride ER 20 mEq tablet,extended release RxNorm: 048127 1 Tablet(s) PO daily 06/22/2017 01/17/2018 Inactive Lantus Solostar U-100 Insulin 100 unit/mL (3 mL) subcutaneous pen RxNorm: 695534 10 Unit(s) SQ daily 06/08/2017 Inactive Basaglar KwikPen U-100 Insulin 100 unit/mL (3 mL) subcutaneous RxNorm: 8023116 10 Unit(s) SQ daily 06/08/201706/07 Inactive Basaglar KwikPen U-100 Insulin 100 unit/mL (3 mL) subcutaneous RxNorm: 2475660 10 Unit(s) SQ daily 06/08/201709/21 Inactive Lexapro 5 mg tablet RxNorm: 580762 1 Tablet(s) PO daily 201711/27/2017 Inactive Lexapro 5 mg tablet RxNorm: 833975 1 Tablet(s) PO daily 201705/31/2017 Inactive bisoprolol 5 mg-hydrochlorothiazide 6.25 mg tablet RxNorm: 371157 1 Tablet(s) PO BID 05/04/2017 06/02/2017 Inactive Keflex 500 mg capsule RxNorm: 262503 1 Capsule(s) PO QID 201704/21/2017 Inactive Lantus Solostar 100 unit/mL (3 mL) subcutaneous insulin pen RxNorm: 933735 10 Unit(s) SQ daily 02/03/2017 06/07/2017 Inactive levothyroxine 50 mcg tablet RxNorm: 735820 TAKE 1 TABLET BY MOUTH ONCE DAILY 02/01/2017 09/28/2017 Inactive Generic For:SYNTHROID 50MCG TAB 02/01/2017 9:20:59 AM gabapentin 600 mg tablet RxNorm: 381013 1 Capsule(s) PO TID 01/21/2018 Inactive Lexapro 5 mg tablet RxNorm: 548228 TAKE 1 TABLET BY MOUTH AT BEDTIME 01/07/2017 09/21/2017 Inactive Generic For:LEXAPRO 5MG 01/07/2017 9:05:43 AM Victoza 2-Dariusz 0.6 mg/0.1 mL (18 mg/3 mL) subcutaneous pen injector RxNorm: 478173 1.8 Milligram(s) SQ daily 12/17/201602/07 Inactive Victoza 3-Dariusz 0.6 mg/0.1 mL (18 mg/3 mL) subcutaneous pen injector RxNorm: 500868 Milligram(s) SQ 12/17/2016 02/07/2017 Inactive Zetia 10 mg tablet RxNorm: 893603 1 Tablet(s) PO daily 201611/11/2017 Inactive fluticasone 50 mcg/actuation nasal spray,suspension RxNorm: 7393423 Goodrich NASAL ONE SPRAY IN EACH NOSTRIL TWICE DAILY 09/28/2016 04/25/2017 Inactive Victoza 2-Dariusz 0.6 mg/0.1 mL (18 mg/3 mL) subcutaneous pen injector RxNorm: 031598 1.2 Milligram(s) SQ daily 09/14/201612/16 Inactive Lexapro 5 mg tablet RxNorm: 160016 1 Tablet(s) PO QHS 201612/12/2016 Inactive metformin 500 mg tablet RxNorm: 974254 1 Tablet(s) PO UD 1.5 in morning, noon and 1 at bedtime 09/08/2016 09/02/2017 Inactive glimepiride 4 mg tablet RxNorm: 807470 TAKE 1 TABLET BY MOUTH ONCE DAILY 07/31/2016 09/13/2016 Inactive Generic For:*AMARYL 4MG 07/31/2016 9:02:38 AM Victoza 2-Dariusz 0.6 mg/0.1 mL (18 mg/3 mL) subcutaneous pen injector RxNorm: 604855 1.2 Milligram(s) SQ daily 05/18/201609/13 Inactive Victoza 2-Dariusz 0.6 mg/0.1 mL (18 mg/3 mL) subcutaneous pen injector RxNorm: 712039 1.2 Milligram(s) SQ daily 04/16/201605/17 Inactive levothyroxine 50 mcg tablet RxNorm: 232625 TAKE 1 TABLET BY MOUTH ONCE DAILY 04/08/2016 12/03/2016 Inactive Generic For:SYNTHROID 50MCG TAB 04/08/2016 9:05:40 AM levothyroxine 50 mcg tablet RxNorm: 925093 1 Tablet(s) PO daily TAKE 1 TABLET BY MOUTH ONCE DAILY 04/08/2016 12/03/2016 Inactive Generic For:SYNTHROID 50MCG TAB N O T I C E PRESCRIPTION PREVIOUSLY AUTHORIZED BY DOCTOR:HENRY BAIG [phone] bisoprolol 5 mg-hydrochlorothiazide 6.25 mg tablet RxNorm: 858128 1 Tablet(s) PO BID 03/23/2016 03/17/2017 Inactive Victoza 2-Dariusz 0.6 mg/0.1 mL (18 mg/3 mL) subcutaneous pen injector RxNorm: 712938 0.6 Milligram(s) SQ daily 03/19/201604/15 Inactive Lexapro 5 mg tablet RxNorm: 169997 1 Tablet(s) PO QHS 201606/16/2016 Inactive gabapentin 600 mg tablet RxNorm: 249556 1 Capsule(s) PO TID 07/201601/26/2017 Inactive glimepiride 4 mg tablet RxNorm: 586797 1 Tablet(s) PO daily 06/05/2016 Inactive Victoza 3-Dariusz 0.6 mg/0.1 mL (18 mg/3 mL) subcutaneous pen injector RxNorm: 950585 0.6 Milligram(s) SQ daily x2 weeks, then 1.2 mg SQ daily 03/18/2016 Inactive metformin 500 mg tablet RxNorm: 487548 1 Tablet(s) PO UD 1.5 in morning, noon and 1 at bedtime 08/14/2015 08/07/2016 Inactive gabapentin 600 mg tablet RxNorm: 541872 1 Capsule(s) PO TID SHE IS ONLY TAKING 1 QD 08/14/2015 03/18/2016 Inactive fluticasone 50 mcg/actuation nasal spray,suspension RxNorm: 846602 Goodrich NASAL ONE SPRAY IN EACH NOSTRIL TWICE DAILY 07/26/2015 07/25/2015 Inactive fluticasone 50 mcg/actuation nasal spray,suspension RxNorm: 7474105 Goodrich NASAL ONE SPRAY IN EACH NOSTRIL TWICE DAILY 07/26/2015 02/20/2016 Inactive bisoprolol 5 mg-hydrochlorothiazide 6.25 mg tablet RxNorm: 682273 1 Tablet(s) PO daily 1 Tablet(s) PO BID 07/17/20152015 Inactive metformin 500 mg tablet RxNorm: 481092 1 Tablet(s) PO TID 1 Tablet(s) PO TID 07/17/2015 08/13/2015 Inactive Diflucan 100 mg tablet RxNorm: 909276 1 Tablet(s) PO daily 06/201507/21/2015 Inactive Zetia 10 mg tablet RxNorm: 627924 1 Tablet(s) PO daily 201506/03/2016 Inactive bisoprolol 5 mg-hydrochlorothiazide 6.25 mg tablet RxNorm: 520898 1 Tablet(s) PO BID 04/18/2015 07/16/2015 Inactive metformin 500 mg tablet RxNorm: 025709 1 Tablet(s) PO TID 03/0106/28/2015 Inactive glimepiride 4 mg tablet RxNorm: 583934 1 Tablet(s) PO daily 01/30/2015 Inactive levothyroxine 50 mcg tablet RxNorm: 349900 TAKE 1 TABLET BY MOUTH ONCE DAILY 01/31/2015 09/27/2015 Inactive Generic For:SYNTHROID 50MCG TAB N O T I C E PRESCRIPTION PREVIOUSLY AUTHORIZED BY DOCTOR:HENRY BAIG glimepiride 4 mg tablet RxNorm: 580012 1 Tablet(s) PO daily 07/29/2015 Inactive Invokana 100 mg tablet RxNorm: 3890341 1 Tablet(s) PO daily 07/16/2015 Inactive bisoprolol 5 mg-hydrochlorothiazide 6.25 mg tablet RxNorm: 602260 1 Tablet(s) PO BID 08/27/2014 02/22/2015 Inactive metformin 500 mg tablet RxNorm: 455978 1 Tablet(s) PO TID 08/1012/07/2014 Inactive metformin 500 mg tablet RxNorm: 100507 1 Tablet(s) PO TID 08/1008/09/2014 Inactive Fish Oil 1,000 mg capsule RxNorm: 1 Capsule(s) PO daily No Start Date Active Protonix 40 mg tablet,delayed release RxNorm: 782580 1 Tablet(s) PO QAM No Start Date Active furosemide 40 mg tablet RxNorm: 607750 1 Tablet(s) PO daily No Start Date Active pen needle, diabetic 31 gauge x 1/6" RxNorm: Miscellaneous No Start Date Active nitroglycerin 0.4 mg sublingual tablet RxNorm: 376836 1 Tablet(s) SL as needed chest pain No Start Date Active amlodipine 5 mg tablet RxNorm: 564796 1 Tablet(s) PO daily No Start Date Active Entresto 24 mg-26 mg tablet RxNorm: 3746490 1 Tablet(s) PO BID No Start Date Active aspirin 81 mg chewable tablet RxNorm: 526612 1 Tablet(s) PO daily No Start Date 06/02/2017 Inactive Eliquis 5 mg tablet RxNorm: 3908929 1 Tablet(s) PO BID No Start Date 01/26/2018 Inactive bisoprolol-hydrochlorothiazide oral RxNorm: 23914 oral No Start Date 08/26/2014 Inactive levothyroxine 50 mcg tablet RxNorm: 633013 1 Tablet(s) PO daily No Start Date 01/30/2015 Inactive potassium chloride ER 20 mEq tablet,extended release RxNorm: 348241 1 Tablet(s) PO daily No Start Date 06/21/2017 Inactive digoxin 250 mcg tablet RxNorm: 515210 1 Tablet(s) PO daily No Start Date 01/26/2018 Inactive Invokana 100 mg tablet RxNorm: 2403922 1 Tablet(s) PO daily No Start Date 12/11/2014 Inactive Victoza 3-Dariusz 0.6 mg/0.1 mL (18 mg/3 mL) subcutaneous pen injector RxNorm: 964697 0.6 Milligram(s) SQ daily x2 weeks, then 1.2 mg SQ daily No Start Date 12/01/2015 Inactive Effient 10 mg tablet RxNorm: 364300 1 Tablet(s) PO QAM No Start Date 01/26/2018 Inactive Zetia 10 mg tablet RxNorm: 561173 1 Tablet(s) PO BID No Start Date 03/18/2016 Inactive metoprolol succinate ER 100 mg tablet,extended release 24 hr RxNorm: 159813 1 Tablet(s) PO daily No Start Date 2017 Inactive gabapentin 300 mg capsule RxNorm: 977412 1 Capsule(s) PO BID No Start Date 08/13/2015 Inactive Lasix 40 mg tablet RxNorm: 766407 1 Tablet(s) PO BID No Start Date 04/14/2017 Inactive Coreg 3.125 mg tablet RxNorm: 937677 1 Tablet(s) PO BID with meals No [...] 04/15/2017 stress test and then shipped to [facility] Follow Up 03/19/2017 stress test and then shipped to [facility] diabetes mellitus 02/03/2017 headache 01/07/2017 diabetes mellitus 12/17/2016 diabetes mellitus 09/14/2016 diabetes mellitus 06/18/2016 medication follow up 04/16/2016 back pain 03/19/2016 back pain 11/14/2015 back pain 08/14/2015 diabetes mellitus 07/17/2015 Hospital Follow Up 03/25/2015 diabetes mellitus 12/04/2014 diabetes mellitus 08/14/2014 Results Observation Observation Code Item Item Code Result Date Cbc With Differential Ord2 WBC 6.37 K/ul [...] 28.8 pg 02/24/2018 Cbc With Differential Ord2 Arroyo% 5.7 % 02/24/2018 Cbc With Differential Ord2 [...] 1.57 K/ul 02/24/2018 Cbc With Differential Ord2 [place] ABS# 0.4 K/ul 02/24/2018 Cbc With Differential Ord2 Eos ABS# 0.1 K/ul 02/24/2018 Cbc With Differential Ord2 Baso ABS# 0.0 K/ul 02/24/2018 Comp Metabolic Dic928 NA 138 mEq/L 02/24/2018 Comp Metabolic Bxz028 K 4.4 mEq/L 02/24/2018 Comp Metabolic Ynb290 CL 100 mEq/L 02/24/2018 Comp Metabolic Wsk291 CO2 27.0 mEq/L 02/24/2018 Comp Metabolic Zrg827 ANION GAP 15 02/24/2018 Comp Metabolic Drq536 GLUCOSE 98 mg/dL 02/24/2018 Comp Metabolic Sdj824 Creat 1.0 mg/dL 02/24/2018 Comp Metabolic Bkl702 eGFR 55 ml/min/1.73m2 02/24/2018 Comp Metabolic Hcg553 BUN 25 mg/dL 02/24/2018 Comp Metabolic Wxm873 B/C Ratio 24.3 Ratio 02/24/2018 Comp Metabolic Zzd946 CALCIUM 9.4 mg/dL 02/24/2018 Comp Metabolic Kau256 ALK PHOS 46 U/L 02/24/2018 Comp Metabolic Yji581 AST(SGOT) 13 U/L 02/24/2018 Comp Metabolic Zbk489 ALT(SGPT) 12 U/L 02/24/2018 Comp Metabolic Zab632 BILI T 0.4 mg/dL 02/24/2018 Comp Metabolic Vre343 ALBUMIN 4.5 g/dL 02/24/2018 Comp Metabolic Wix395 TPRO 6.6 g/dL 02/24/2018 Comp Metabolic Qje049 GLOB 2.1 g/dL 02/24/2018 Comp Metabolic Kym659 A/G Ratio 2.1 Ratio 02/24/2018 Comp Metabolic Tin717 Osmo 280 mOsmo 02/24/2018 Culture Urine [id number] URINE CULTURE SEE NOTES 02/11/2018 Culture Urine [id number] Continued Results 02/11/2018 Urine Culture Ucult Complete >100,000 col/ml aerobic growth sent to ref lab 02/08/2018 %Hba1C Gwu116 % HbA1c 47787-6 6.8 % 01/12/2018 %Hba1C Ttv236 Gluc Ave 148 mg/dL 01/12/2018 Metabolic Ord15 [...] 89.9 fl 01/11/2018 Cbc With Differential Ord2 [place]royo% 7.8 % 01/11/2018 Cbc With Differential Ord2 [...] 1.70 K/ul 01/11/2018 Cbc With Differential Ord2 [place] ABS# 0.4 K/ul 01/11/2018 Cbc With Differential Ord2 Eos ABS# 0.1 K/ul 01/11/2018 Cbc With Differential Ord2 Baso ABS# 0.0 K/ul 01/11/2018 Magnesium Ord90 Mag 1.7 mg/dL 01/11/2018 Test(s) Not Perfromed [id number] Test(s) Not Performed Test(s) Not Performed. See Below: 09/20/2017 Test(s) Not Perfromed [id number] TEST NAME BNP 09/20/2017 Test(s) Not Perfromed [id number] Rejection Reason Patient Refused due to lack of coving diganosis 09/20/2017 Test(s) Not Perfromed [id number] COMMENT Dorita Notified 09/20 Test(s) Not Perfromed FTX9984 Sap Bi Architect Miguel Mclaughlin 2017 B Type Natriuretic Peptide Gvt9835 B-RETAIL PROJECT MERCHANDISER 889.00 pg/ml 2017 Cbc With Differential Ord2 WBC 5.72 K/ul 09/20/2017 Cbc With Differential Ord2 RBC 3.88 M/ul 09/20/2017 Cbc With Differential Ord2 HGB 11.2 g/dl 09/20/2017 Cbc With Differential Ord2 Neut% 62.4 % 09/20/2017 Cbc With Differential Ord2 HCT 35.0 % 09/20/2017 Cbc With Differential Ord2 Lymph% 29.4 % 09/20/2017 Cbc With Differential Ord2 MCV 90.2 fl 09/20/2017 Cbc With Differential Ord2 Arroyo% 5.6 % 09/20/2017 Cbc With Differential Ord2 [...] 1.68 K/ul 09/20/2017 Cbc With Differential Ord2 [place]royo ABS# 0.3 K/ul 09/20/2017 Cbc With Differential Ord2 Eos ABS# 0.1 K/ul 09/20/2017 Cbc With Differential Ord2 Baso ABS# 0.0 K/ul 09/20/2017 %Hba1C Zmw668 % HbA1c 04465-2 7.9 % 09/20/2017 %Hba1C Lxa792 Gluc Ave 180 mg/dL 09/20/2017 Magnesium Ord90 [...] 28.3 pg 07/07/2017 Cbc With Differential Ord2 [place]royo% 7.9 % 07/07/2017 Cbc With Differential Ord2 [...] 1.34 K/ul 07/07/2017 Cbc With Differential Ord2 [place]roy[place] ABS# 0.4 K/ul 07/07/2017 Cbc With Differential Ord2 Eos ABS# 0.1 K/ul 07/07/2017 Cbc With Differential Ord2 Baso ABS# 0.0 K/ul 07/07/2017 Comp Metabolic Tjg700 NA 142 mEq/L 07/07/2017 Comp Metabolic Nny622 K 4.3 mEq/L 07/07/2017 Comp Metabolic Hlx747 CL 105 mEq/L 07/07/2017 Comp Metabolic Xjv369 CO2 28.0 mEq/L 07/07/2017 Comp Metabolic Uns547 ANION GAP 13 07/07/2017 Comp Metabolic Crk654 GLUCOSE 197 mg/dL 07/07/2017 Comp Metabolic Ccb459 Creat 1.1 mg/dL 07/07/2017 Comp Metabolic Yuu839 eGFR 51 ml/min/1.73m2 07/07/2017 Comp Metabolic Fbu585 BUN 21 mg/dL 07/07/2017 Comp Metabolic Ref641 B/C Ratio 18.9 Ratio 07/07/2017 Comp Metabolic Pct222 CALCIUM 8.9 mg/dL 07/07/2017 Comp Metabolic Zst623 ALK PHOS 51 U/L 07/07/2017 Comp Metabolic Ugy577 AST(SGOT) 11 U/L 07/07/2017 Comp Metabolic Vod125 ALT(SGPT) 11 U/L 07/07/2017 Comp Metabolic Wxn219 BILI T 0.3 mg/dL 07/07/2017 Comp Metabolic Igc296 ALBUMIN 4.2 g/dL 07/07/2017 Comp Metabolic Fev671 TPRO 6.0 g/dL 07/07/2017 Comp Metabolic Rkm002 GLOB 1.8 g/dL 07/07/2017 Comp Metabolic Tna274 A/G Ratio 2.3 Ratio 07/07/2017 Comp Metabolic Bnm793 Osmo 292 mOsmo 07/07/2017 Digoxin Ord9 DIGOXIN 1.3 NG/ML 07/07/2017 Tsh Ord6 TSH (3rd IS) 2.19 uIU/mL 07/07/2017 B Type Natriuretic Peptide Rrk9444 B-RETAIL PROJECT MERCHANDISER 801.00 pg/ml 2017 Culture Urine [id number] URINE CULTURE SEE NOTES 04/19/2017 Culture Urine [id number] Continued Results 04/19/2017 Urine Culture Ucult Complete >100,000 col/ml aerobic growth sent to ref lab 04/16/2017 Comp Metabolic Mmg859 NA 140 mEq/L 01/26/2017 Comp Metabolic Wyn095 K 4.6 mEq/L 01/26/2017 Comp Metabolic Izt760 CL 102 mEq/L 01/26/2017 Comp Metabolic Mzy819 CO2 28.0 mEq/L 01/26/2017 Comp Metabolic Xac989 ANION GAP 15 01/26/2017 Comp Metabolic Seo604 GLUCOSE 173 mg/dL 01/26/2017 Comp Metabolic Ssq997 Creat 1.0 mg/dL 01/26/2017 Comp Metabolic Pem239 eGFR 56 ml/min/1.73m2 01/26/2017 Comp Metabolic Xfr589 BUN 23 mg/dL 01/26/2017 Comp Metabolic Lmm059 B/C Ratio 22.5 Ratio 01/26/2017 Comp Metabolic Zxn303 CALCIUM 9.4 mg/dL 01/26/2017 Comp Metabolic Bsp315 ALK PHOS 52 U/L 01/26/2017 Comp Metabolic Ejh366 AST(SGOT) 12 U/L 01/26/2017 Comp Metabolic Jer652 ALT(SGPT) 12 U/L 01/26/2017 Comp Metabolic Apn955 BILI T 0.5 mg/dL 01/26/2017 Comp Metabolic Qem539 ALBUMIN 4.4 g/dL 01/26/2017 Comp Metabolic Rjv406 TPRO 6.5 g/dL 01/26/2017 Comp Metabolic Cdu720 GLOB 2.1 g/dL 01/26/2017 Comp Metabolic Zmf180 A/G Ratio 2.1 Ratio 01/26/2017 Comp Metabolic Eaq899 Osmo 287 mOsmo 01/26/2017 Cbc With Differential [...] 29.2 pg 01/26/2017 Cbc With Differential Ord2 Arroyo% 4.9 % 01/26/2017 Cbc With Differential Ord2 [...] 1.75 K/ul 01/26/2017 Cbc With Differential Ord2 Arroyo ABS# 0.4 K/ul 01/26/2017 Cbc With Differential Ord2 Eos ABS# 0.1 K/ul 01/26/2017 Cbc With Differential Ord2 Baso ABS# 0.0 K/ul 01/26/2017 %Hba1C Zmf888 % HbA1c 60101-5 7.8 % 01/26/2017 %Hba1C Xth392 Gluc Ave 177 mg/dL 01/26/2017 Lipid Ord30 CHOL 239 mg/dL 01/26/2017 Lipid Ord30 HDL 40.0 mg/dl 01/26/2017 Lipid Ord30 TRIG 325 mg/dL 01/26/2017 Lipid Ord30 LDL 134 mg/dL 01/26/2017 Lipid Ord30 C/HDL 6.0 Ratio 01/26/2017 Free T4 Iha037 FREE T4 0.95 ng/dL 01/26/2017 Tsh Ord6 [...] Metabolic Ord15 CALCIUM 9.0 mg/dL 09/08/2016 %Hba1C Juo871 % HbA1c 72733-0 7.5 % 09/08/2016 %Hba1C Cud971 Gluc Ave 169 mg/dL 09/08/2016 Tsh Ord6 hTSH II 2.64 uIU/mL 03/13/2016 %Hba1C Ihy885 % HbA1c 92082-3 8.2 % 03/13/2016 %Hba1C Aic097 Gluc Ave 189 mg/dL 03/13/2016 Lipid Ord30 CHOL 233 mg/dL 03/13/2016 Lipid Ord30 HDL 46.0 mg/dl 03/13/2016 Lipid Ord30 TRIG 276 mg/dL 03/13/2016 Lipid Ord30 LDL 132 mg/dL 03/13/2016 Lipid Ord30 C/HDL 5.1 Ratio 03/13/2016 Free T4 Ltm972 FREE T4 0.94 ng/dL 03/13/2016 Cbc With [...] 29.5 % 03/13/2016 Cbc With Differential Ord2 Arroyo% 6.1 % 03/13/2016 Cbc With Differential Ord2 [...] 1.63 K/ul 03/13/2016 Cbc With Differential Ord2 Arroyo ABS# 0.3 K/ul 03/13/2016 Cbc With Differential Ord2 Eos ABS# 0.1 K/ul 03/13/2016 Cbc With Differential Ord2 Baso ABS# 0.0 K/ul 03/13/2016 Comp Metabolic Wdz417 NA 139 mEq/L 03/13/2016 Comp Metabolic Vja440 K 4.3 mEq/L 03/13/2016 Comp Metabolic Fgj015 CL 103 mEq/L 03/13/2016 Comp Metabolic Gnh749 CO2 28.0 mEq/L 03/13/2016 Comp Metabolic Pfz394 ANION GAP 12 03/13/2016 Comp Metabolic Wct309 GLUCOSE 200 mg/dL 03/13/2016 Comp Metabolic Vom818 Creat 0.9 mg/dL 03/13/2016 Comp Metabolic Nzx033 eGFR 69 ml/min/1.73m2 03/13/2016 Comp Metabolic Ebz153 BUN 19 mg/dL 03/13/2016 Comp Metabolic Djt118 B/C Ratio 22.4 Ratio 03/13/2016 Comp Metabolic Zkk366 CALCIUM 9.0 mg/dL 03/13/2016 Comp Metabolic Ytw933 ALK PHOS 57 U/L 03/13/2016 Comp Metabolic Mzt343 AST(SGOT) 13 U/L 03/13/2016 Comp Metabolic Coh311 ALT(SGPT) 16 U/L 03/13/2016 Comp Metabolic Jsq658 BILI T 0.4 mg/dL 03/13/2016 Comp Metabolic Lnu468 ALBUMIN 4.2 g/dL 03/13/2016 Comp Metabolic Crr308 TPRO 6.3 g/dL 03/13/2016 Comp Metabolic Lpc220 GLOB 2.1 g/dL 03/13/2016 Comp Metabolic Met416 A/G Ratio 2.0 Ratio 03/13/2016 Comp Metabolic Fpq493 Osmo 285 mOsmo 03/13/2016 %Hba1C Box898 % HbA1c 32289-4 8.3 % 11/14/2015 %Hba1C Cyp127 Gluc Ave 192 mg/dL 11/14/2015 Lipid Ord30 CHOL 210 mg/dL 07/19/2015 Lipid Ord30 HDL 43.0 mg/dl 07/19/2015 Lipid Ord30 TRIG 311 mg/dL 07/19/2015 Lipid Ord30 LDL 105 mg/dL 07/19/2015 Lipid Ord30 C/HDL 4.9 Ratio 07/19/2015 %Hba1C Vod211 % HbA1c 96308-7 7.6 % 07/19/2015 %Hba1C Tim639 Gluc Ave 171 mg/dL 07/19/2015 Cbc With [...] 28.8 pg 07/19/2015 Cbc With Differential Ord2 Arroyo% 6.1 % 07/19/2015 Cbc With Differential Ord2 [...] 1.63 K/ul 07/19/2015 Cbc With Differential Ord2 Arroyo ABS# 0.3 K/ul 07/19/2015 Cbc With Differential Ord2 Eos ABS# 0.1 K/ul 07/19/2015 Cbc With Differential Ord2 Baso ABS# 0.0 K/ul 07/19/2015 Cbc With Differential Ord2 New Analyzer Notice Please note new ref ranges starting 03-27-2015 due to implemntation of new five part differential hematolgy analyzer. 07/19/2015 Comp Metabolic Mvi713 NA 138 mEq/L 07/19/2015 Comp Metabolic Fmn895 K 4.3 mEq/L 07/19/2015 Comp Metabolic Mbg247 CL 100 mEq/L 07/19/2015 Comp Metabolic Ybh272 CO2 33.0 mEq/L 07/19/2015 Comp Metabolic Tmc817 ANION GAP 9 07/19/2015 Comp Metabolic Fdp101 GLUCOSE 149 mg/dL 07/19/2015 Comp Metabolic Ovr857 Creat 0.9 mg/dL 07/19/2015 Comp Metabolic Uwy512 eGFR 62 ml/min/1.73m2 07/19/2015 Comp Metabolic Mci270 BUN 19 mg/dL 07/19/2015 Comp Metabolic Psh651 B/C Ratio 20.2 Ratio 07/19/2015 Comp Metabolic Oqm530 CALCIUM 9.5 mg/dL 07/19/2015 Comp Metabolic Gqj439 ALK PHOS 52 U/L 07/19/2015 Comp Metabolic Rcb584 AST(SGOT) 15 U/L 07/19/2015 Comp Metabolic Pdv953 ALT(SGPT) 14 U/L 07/19/2015 Comp Metabolic Eys100 BILI T 0.5 mg/dL 07/19/2015 Comp Metabolic Utb526 ALBUMIN 4.4 g/dL 07/19/2015 Comp Metabolic Ale843 TPRO 6.4 g/dL 07/19/2015 Comp Metabolic Bqy153 GLOB 2.0 g/dL 07/19/2015 Comp Metabolic Jwo093 A/G Ratio 2.2 Ratio 07/19/2015 Comp Metabolic Wtw591 Osmo 281 mOsmo 07/19/2015 Free T4 Nyk104 FREE T4 0.92 ng/dL 07/19/2015 Tsh Ord6 hTSH II 1.95 uIU/mL 07/19/2015 Microalbumin Usk570 MicroAlb 0.4 mg/dL 07/19/2015 Comp Metabolic Qaq138 NA 137 mEq/L 12/04/2014 Comp Metabolic Llj020 K 4.0 mEq/L 12/04/2014 Comp Metabolic Bmb056 CL 100 mEq/L 12/04/2014 Comp Metabolic Jvh697 CO2 29.0 mEq/L 12/04/2014 Comp Metabolic Tfv095 ANION GAP 12 12/04/2014 Comp Metabolic Com228 GLUCOSE 171 mg/dL 12/04/2014 Comp Metabolic Gul052 Creat 1.0 mg/dL 12/04/2014 Comp Metabolic Qpj643 eGFR 60 ml/min/1.73m2 12/04/2014 Comp Metabolic Psa320 BUN 25 mg/dL 12/04/2014 Comp Metabolic Zpl005 B/C Ratio 25.8 Ratio 12/04/2014 Comp Metabolic Fwq865 CALCIUM 9.4 mg/dL 12/04/2014 Comp Metabolic Blr844 ALK PHOS 60 U/L 12/04/2014 Comp Metabolic Jvw525 AST(SGOT) 13 U/L 12/04/2014 Comp Metabolic Hlo640 ALT(SGPT) 17 U/L 12/04/2014 Comp Metabolic Dso387 BILI T 0.4 mg/dL 12/04/2014 Comp Metabolic Qob891 ALBUMIN 4.4 g/dL 12/04/2014 Comp Metabolic Tph082 TPRO 6.9 g/dL 12/04/2014 Comp Metabolic Iuc696 GLOB 2.5 g/dL 12/04/2014 Comp Metabolic Hkg092 A/G Ratio 1.8 Ratio 12/04/2014 Comp Metabolic Lea876 Osmo 282 mOsmo 12/04/2014 Tsh Ord6 hTSH II 1.78 uIU/mL 12/04/2014 %Hba1C Wdg402 % HbA1c 85301-1 8.3 % 12/04/2014 %Hba1C Lcw853 Gluc Ave 192 mg/dL 12/04/2014 Free T4 Vzz657 FREE T4 0.85 ng/dL 12/04/2014 Lipid Ord30 [...] lips 06/03/2017 None Full Exam - General 1995 Ears/Nose/Throat [...] accomodation 09/14/2016 None Full Exam - General 1995 Ears/Nose/Throat otoscopic exam Overall: external auditory canals clear 09/14/2016 None Full Exam - General 1995 Ears/Nose/Throat otoscopic exam Overall: tympanic membranes clear 09/14/2016 None Full Exam - General 1995 Ears/Nose/Throat lips/teeth/gingiva Overall: benign lips 09/14/2016 None Full Exam - General 1995 Ears/Nose/Throat lips/teeth/gingiva Overall: normal dentition 09/14/2016 None Full Exam - General 1994 Ears/Nose/Throat oral cavity/pharynx/larynx Overall: oral mucosa clear 09/14/2016 None Full Exam - General 1995 Ears/Nose/Throat oral cavity/pharynx/larynx Overall: oropharyngeal mucosa clear 09/14/2016 None Full Exam - General 1995 Ears/Nose/Throat oral cavity/pharynx/larynx Overall: hypopharynx benign 09/14/2016 None Full Exam - General 1995 Ears/Nose/Throat oral cavity/pharynx/larynx Overall: no masses 09/14/2016 [...] lips 03/19/2016 None Full Exam - General 1995 Ears/Nose/Throat lips/teeth/gingiva Overall: normal dentition 03/19/2016 None Full Exam - General 1994 Ears/Nose/Throat oral cavity/pharynx/larynx Overall: oral mucosa clear 03/19/2016 None Full Exam - General 1994 Ears/Nose/Throat oral cavity/pharynx/larynx Overall: oropharyngeal mucosa clear 03/19/2016 None Full Exam - General 1995 Ears/Nose/Throat oral cavity/pharynx/larynx Overall: hypopharynx benign 03/19/2016 [...] Codes Date URINALYSIS NONAUTO W/O SCOPE CPT-4: 23265 02/24/2018 URINALYSIS NONAUTO W/O SCOPE CPT-4: 70459 02/07/2018 ADMIN INFLUENZA VIRUS VAC CPT-4: G0008 11/25/2017 FLU VAC NO PRSV 4 ANABELLE 3 YRS+ CPT-4: 13370 11/25/2017 GLUC MONITOR CONT PHYS I&R CPT-4: 62702 10/26/2017 GLUCOSE MONITORING CONT CPT-4: 23886 10/11/2017 URINALYSIS NONAUTO W/O SCOPE CPT-4: 05720 04/15/2017 FLU VAC NO PRSV 4 ANABELLE 3 YRS+ CPT-4: 89494 12/17/2016 ADMIN INFLUENZA VIRUS VAC CPT-4: G0008 12/17/2016 FLU VACC PRSV FREE INC ANTIG Formatting Model/CDA Sections, Assigned to/Nery Daniels CPT-4: [id number] 11/14/2015 ADMIN INFLUENZA VIRUS VAC CPT-4: G0008 11/14/2015 ADMIN INFLUENZA VIRUS VAC Formatting Model/CDA Sections, Assigned to/Nery Daniels CPT-4: [id number] 12/04/2014 FLU VACC 4 ANABELLE 3 YRS PLUS IM SNOMED CT: [id number] CPT-4: 64150 12/04/2014 Vital Signs Date Vital 02/24/2018 Blood Pressure 1: 130/62 Code : 8480-6 BMI: 28.9 Code : 73910-3 Heart Rate 1 : 57 bpm Height: 5' SpO2: 99% Weight: 148 lbs 01/27/2018 Blood Pressure 1: 142/70 Code : 8480-6 BMI: 29.5 Code : 07931-0 Heart Rate 1 : 61 bpm Height: 5' SpO2: 99% Weight: 151 lbs 11/25/2017 Blood Pressure 1: 148/72 Code : 8480-6 BMI: 30.9 Code : 19332-2 Heart Rate 1 : 62 bpm Height: 5' SpO2: 98% Weight: 158 lbs 10/26/2017 Blood Pressure 1: 156/74 Code : 8480-6 BMI: 31.2 Code : 00018-3 Heart Rate 1 : 71 bpm Height: 5' SpO2: 98% Weight: 160 lbs 10/11/2017 Blood Pressure 1: 128/70 Code : 8480-6 BMI: 30.9 Code : 29007-0 Heart Rate 1 : 70 bpm Height: 5' SpO2: 95% Weight: 158 lbs 09/22/2017 Blood Pressure 1: 110/52 Code : 8480-6 BMI: 30.9 Code : 26734-4 Heart Rate 1 : 72 bpm Height: 5' SpO2: 99% Weight: 158 lbs 07/06/2017 Blood Pressure 1: 120/85 Code : 8480-6 BMI: 31.4 Code : 65632-3 Heart Rate 1 : 74 bpm Height: 5' SpO2: 92% Weight: 161 lbs 06/03/2017 Blood Pressure 1: 120/62 Code : 8480-6 BMI: 31.1 Code : 82355-3 Heart Rate 1 : 73 bpm Height: 5' SpO2: 99% Weight: 159 lbs 05/12/2017 Blood Pressure 1: 132/68 Code : 8480-6 BMI: 32.4 Code : 51607-2 Heart Rate 1 : 95 bpm Height: 5' SpO2: 97% Weight: 166 lbs 04/15/2017 Blood Pressure 1: 128/84 Code : 8480-6 BMI: 32.4 Code : 97360-2 Heart Rate 1 : 62 bpm Height: 5' SpO2: 97% Weight: 166 lbs 03/19/2017 Blood Pressure 1: 112/60 Code : 8480-6 BMI: 32.0 Code : 74507-0 Height: 5' Weight: 164 lbs 02/03/2017 Blood Pressure 1: 128/76 Code : 8480-6 BMI: 33.4 Code : 27470-0 Heart Rate 1 : 91 bpm Height: 5' SpO2: 99% Weight: 171 lbs 01/07/2017 Blood Pressure 1: 126/74 Code : 8480-6 BMI: 34.2 Code : 15139-7 Heart Rate 1 : 83 bpm Height: 5' SpO2: 97% Weight: 175 lbs 12/17/2016 Blood Pressure 1: 122/72 Code : 8480-6 BMI: 34.0 Code : 16405-4 Heart Rate 1 : 78 bpm Height: 5' SpO2: 97% Weight: 174 lbs 09/14/2016 Blood Pressure 1: 128/86 Code : 8480-6 BMI: 33.8 Code : 02040-3 Heart Rate 1 : 88 bpm Height: 5' SpO2: 96% Weight: 173 lbs 06/18/2016 Blood Pressure 1: 122/74 Code : 8480-6 BMI: 34.8 Code : 39521-5 Heart Rate 1 : 78 bpm Height: 5' SpO2: 98% Weight: 178 lbs 04/16/2016 Blood Pressure 1: 134/68 Code : 8480-6 BMI: 35.0 Code : 55047-3 Heart Rate 1 : 67 bpm Height: 5' SpO2: 97% Weight: 179 lbs 03/19/2016 Blood Pressure 1: 132/74 Code : 8480-6 BMI: 34.6 Code : 66037-8 Heart Rate 1 : 74 bpm Height: 5' SpO2: 97% Weight: 177 lbs 11/14/2015 Blood Pressure 1: 132/70 Code : 8480-6 BMI: 35.2 Code : 87839-0 Heart Rate 1 : 68 bpm Height: 5' Weight: 180 lbs 08/14/2015 Blood Pressure 1: 122/74 Code : 8480-6 BMI: 33.8 Code : 39879-2 Heart Rate 1 : 73 bpm Height: 5' SpO2: 93% Weight: 173 lbs 07/17/2015 Blood Pressure 1: 138/78 Code : 8480-6 BMI: 34.0 Code : 11696-3 Heart Rate 1 : 85 bpm Height: 5' SpO2: 97% Weight: 174 lbs 03/25/2015 Blood Pressure 1: 130/78 Code : 8480-6 BMI: 33.2 Code : 46092-1 Heart Rate 1 : 77 bpm Height: 5' SpO2: 97% Weight: 170 lbs 12/04/2014 Blood Pressure 1: 120/74 Code : 8480-6 BMI: 35.4 Code : 53543-1 Heart Rate 1 : 67 bpm Height: 5' SpO2: 94% Weight: 181 lbs 5 oz 08/14/2014 Blood Pressure 1: 132/68 Code : 8480-6 BMI: 32.1 Code : 34636-0 Heart Rate 1 : 62 bpm Height: [...] data Encounters Encounter Performer Location Codes Date ([id number]) 31355 EST. PATIENT, LEVEL IV Diagnosis: Low back pain[ICD10: M54.5] Diagnosis: Dysuria[ICD10: R30.0] Diagnosis: Type 2 diabetes mellitus with hyperglycemia[ICD10: E11.65] Claudia Nicole MD, [facility] CPT-4: 80110 02/24/2018 ([id number]) 12749 EST. PATIENT, LEVEL IV Diagnosis: Type 2 diabetes mellitus with hyperglycemia[ICD10: E11.65] Diagnosis: Essential (primary) hypertension[ICD10: I10] Diagnosis: Major depressive disorder, recurrent, mild[ICD10: F33.0] Diagnosis: Generalized anxiety disorder[ICD10: F41.1] Claudia Nicole MD, [facility] CPT-4: 63469 01/27/2018 ([id number]) 68785 EST. PATIENT, LEVEL IV Diagnosis: Type 2 diabetes mellitus with hyperglycemia[ICD10: E11.65] Diagnosis: Essential (primary) hypertension[ICD10: I10] Diagnosis: Encounter for immunization[ICD10: Z23] Diagnosis: Carpal tunnel syndrome, left upper limb[ICD10: G56.02] Claudia Nicole MD, [facility] CPT-4: 80044 11/25/2017 ([id number]) 60981 EST. PATIENT, LEVEL III Diagnosis: Type 2 diabetes mellitus with hyperglycemia[ICD10: E11.65] Claudia Nicole MD, [facility] CPT-4: 15945 10/26/2017 ([id number]) Miscellaneous no charge Diagnosis: Type 2 diabetes mellitus with hyperglycemia[ICD10: E11.65] Claudia Nicole MD, [facility] CPT-4: 33768 10/18/2017 ([id number]) 49033 EST. PATIENT, LEVEL IV Diagnosis: Type 2 diabetes mellitus with diabetic autonomic (poly)neuropathy[ ICD10: E11.43] Diagnosis: Essential (primary) hypertension[ICD10: I10] Mila Nicole MD, [facility] CPT-4: 91916 09/22/2017 ([id number]) 29583 EST. PATIENT, LEVEL IV Diagnosis: Type 2 diabetes mellitus with hyperglycemia[ICD10: E11.65] Diagnosis: Paroxysmal atrial fibrillation[ICD10: I48.0] Diagnosis: Essential (primary) hypertension[ICD10: I10] Mila Nciole MD, [facility] CPT-4: 01035 07/06/2017 ([id number]) 27687 EST. PATIENT, LEVEL IV Diagnosis: Essential (primary) hypertension[ICD10: I10] Diagnosis: Type 2 diabetes mellitus with hyperglycemia[ICD10: E11.65] Diagnosis: Paroxysmal atrial fibrillation[ICD10: I48.0] Claudia Nicole MD, [facility] CPT-4: 16558 06/03/2017 05990 EST. PATIENT, LEVEL III Diagnosis: Generalized anxiety disorder[ICD10: F41.1] Diagnosis: Major depressive disorder, recurrent, moderate[ICD10: F33.1] Diagnosis: Paroxysmal tachycardia, unspecified[ICD10: I47.9] Gardenia Nicole MD, [facility] CPT-4: 97703 05/12/2017 ([id number]) 84553 EST. PATIENT, LEVEL IV Diagnosis: Essential (primary) hypertension[ICD10: I10] Diagnosis: Cough[ICD10: R05] Diagnosis: Dysuria[ICD10: R30.0] Mila Nicole MD, [facility] CPT-4: 74278 04/15/2017 ([id number]) 70526 EST. PATIENT, LEVEL IV Diagnosis: Type 2 diabetes mellitus with hyperglycemia[ICD10: E11.65] Diagnosis: Essential (primary) hypertension[ICD10: I10] Mila Nicole MD, [facility] CPT-4: 12952 03/19/2017 ([id number]) 54182 EST. PATIENT, LEVEL III Diagnosis: Type 2 diabetes mellitus with hyperglycemia[ICD10: E11.65] Mila Nicole MD , [facility] CPT-4: 56125 02/03/2017 16575 EST. PATIENT, LEVEL IV Diagnosis: Generalized anxiety disorder[ICD10: F41.1] Diagnosis: Type 2 diabetes mellitus with hyperglycemia[ICD10: E11.65] Diagnosis: Essential (primary) hypertension[ICD10: I10] Gardenia Nicole MD, [facility] CPT-4: 75580 01/07/2017 ([id number]) 48190 EST. PATIENT, LEVEL III Diagnosis: Type 2 diabetes mellitus with hyperglycemia[ICD10: E11.65] Diagnosis: Encounter for immunization[ICD10: Z23] Mila Nicole MD, [facility] CPT-4: 26672 12/17/2016 ([id number]) 50171 EST. PATIENT, LEVEL IV Diagnosis: Type 2 diabetes mellitus with hyperglycemia[ICD10: E11.65] Diagnosis: Essential (primary) hypertension[ICD10: I10] Diagnosis: Major depressive disorder, recurrent, mild[ICD10: F33.0] Mila Nicole MD [facility] CPT-4: 91436 09/14/2016 ([id number]) 57215 EST. 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 PATIENT, LEVEL IV Diagnosis: Type 2 diabetes mellitus with hyperglycemia[ICD10: E11.65] Diagnosis: Essential (primary) hypertension[ICD10: I10] Mila Nicole MD [facility] CPT-4: 78704 04/16/2016 ([id number]) 57897 EST. 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 PATIENT, LEVEL IV Diagnosis: Type 2 diabetes mellitus with hyperglycemia[ICD10: E11.65] Diagnosis: Encounter for immunization[ICD10: Z23] Diagnosis: Essential (primary) hypertension[ICD10: I10] Mila Nicole MD [facility] CPT-4: 64491 11/14/2015 ([id number]) 77164 EST. PATIENT, LEVEL IV Diagnosis: Type 2 diabetes mellitus with hyperglycemia[ICD10: E11.65] Diagnosis: Essential (primary) hypertension[ICD10: I10] Diagnosis: Low back pain[ICD10: M54.5] Mila Nicole MD, [facility] CPT- 4: 07522 08/14/2015 ([id number]) 33259 EST. PATIENT, LEVEL IV Diagnosis: Type 2 diabetes mellitus with hyperglycemia[ICD10: E11.65] Diagnosis: Essential (primary) hypertension[ICD10: I10] Diagnosis: Hypothyroidism, unspecified[ICD10: E03.9] Mila Nicole MD, [facility] CPT-4: 72804 07/17/2015 ([id number] 82697 EST. PATIENT, LEVEL IV Diagnosis: Essential (primary) hypertension[ICD10: I10] Diagnosis: Type 2 diabetes mellitus with hyperglycemia[ICD10: E11.65] Diagnosis: Headache[ICD10: R51] [facility] CPT-4: 79607 03/25/2015 ([id number] 72063 EST. PATIENT, LEVEL IV Diagnosis: ESSENTIAL HYPERTENSION[ICD9: 401.9] Diagnosis: DIABETES TYPE II[ICD9: 250.00] Diagnosis: Aortic stenosis[ICD9: 424.1] Mila Nicole MD, [facility] CPT- 4: 58639 12/04/2014 ([id number]) OFFICE VISIT, NEW - LEVEL 4 Diagnosis: ESSENTIAL HYPERTENSION[ICD9: 401.9] Diagnosis: Diabetes mellitus out of control[ICD9: 250.02] Mila Nicole MD, [facility] CPT-4: 71148 08/14/2014 Plan of Care Planned Activity Notes Codes Status Date Visit Plan: Low back pain-xray lumbar spine Dysuria- improved-will culture urine [id number] changes today 02/24/2018 Patient Education: Patient Medication Summary Completed 02/24/2018 Patient Education: Back Pain Completed 02/24/2018 Care Plan: Urine Culture Pending 02/24/2018 Appointment: Lab Draw 02/07/2018 Patient Education: [...] current medications. 01/27/2018 Appointment: Claudia Pruitt WPtel: [address] [place] [address] (15 min) Moderate 01/27/2018 Patient Education: Patient [...] any worse 11/25/2017 Appointment: Claudia Pruitt WPtel: [facility] [place] [address] (15 min) Moderate 11/25/2017 Patient Education: Patient Medication Summary Completed 11/25/2017 Appointment: Mila Nicole WPtel: [address] [place], [place] [phone] (15 min) Moderate 10/28/2017 Visit Plan: Diabetes [...] appt. 10/26/2017 Appointment: Claudia Pruitt WPtel: [phone] [phone] (15 min) Moderate 10/26/2017 Patient Education: [...] plan. 10/11/2017 App[facility]ment[phone] [phone] (30 min) Complex 10/11/2017 Patient Education: [...] Education: Patient Medication Summary Completed 09/22/2017 Appointment: Mial Nicole WPtel: [phone] [facility] (15 min) Moderate 09/13/2017 Appointment: Mila Nicole WPtel: [address] [place], [place] [phone] (15 min) Moderate 09/07/2017 Visit Plan: Diabetes [...] becoming uncontrolled. 07/06/2017 Appointment: Mila Nicole WPtel: [facility] (15 min) Moderate 07/06/2017 Patient Education: Patient Medication Summary Completed 07/06/2017 Appointment: Mila Nicole WPtel: [facility]5 [facility] (15 min) Moderate 06/07/2017 Visit Plan: Hypertension [...] controlled. 06/03/2017 Appointment: Claudia Pruitt WPtel: [phone] [phone] (30 min) Complex 06/03/2017 Patient Education: Patient [...] plan 05/12/2017 Appointment: [facility] Shah [phone] [facility] (30 min) Complex 05/12/2017 Patient Education: [...] medication. 04/15/2017 Appointment: Mila Nicole WPtel: [phone] [facility] (15 min) Moderate 04/15/2017 Patient Education: [...] units daily. 03/19/2017 Appointment: Mila Nicole WPtel: [facility]5 [facility] (15 min) Moderate 03/19/2017 Patient Education: Patient Medication Summary Completed 03/19/2017 Appointment: Mila Nicole WPtel: [phone] [facility] (15 min) Moderate 02/24/2017 Visit Plan: Diabetes [...] and start on lantus 10 units at 02/03/2017 App[facility]ment: [phone] [facility] (15 min) Moderate 02/03/2017 Patient Education: [...] concerns. 01/07/2017 Appointment: Garden[facility] Shah [facility]el[facility] [phone] [facility] (30 min) Complex 01/07/2017 Patient Education: [...] to allow for greater blood glucose control. [id number], 02/2018 junior nordisk 12/17/2016 Appointment: Mila Nicole WPtel: [phone] [facility] (15 min) Moderate 12/17/2016 Patient Education: Patient Medication Summary Completed 12/17/2016 Patient Education: Obesity Completed 12/17/2016 Appointment: Mila Nicole WPtel: [phone] [facility] (15 min) Moderate 12/14/2016 Visit Plan: [...] medications. 09/14/2016 Appointment: Mila Nicole WPtel: [phone] [facility] (15 min) Moderate 09/14/2016 Patient Education: [...] at home. 06/18/2016 Appointment: Mila Nicole WPtel: [phone] [facility] (15 min) Moderate 06/18/2016 Patient Education: [...] home. 04/16/2016 Appointment: [facility]el[facility] [phone] [facility] (15 min) Moderate 04/16/2016 Patient Education: Patient [...] gabapentin 03/19/2016 Appointment: [facility]Ptel[facility] [phone] [facility] [place] (15 min) Moderate 03/19/2016 Patient [...] at home. 11/14/2015 Appointment: Mila Nicole WPtel: [address] [place] [address] (15 min) Moderate 11/14/2015 Patient Education: Patient [...] diflucan treatment - check Hgba1c 07/17/2015 Appointment: Corey Mila [facility]Ptel[facility] [phone] [facility] [place] (15 min) Moderate 07/17/2015 Patient [...] Completed 03/25/2015 Appointment: [facility]Ptel[facility] [phone] [facility] (15 min) Moderate 01/14/2015 Visit Plan: [...] of control. 12/04/2014 Appointment: [facility]Ptel[facility] [phone] [facility] (15 min) Moderate 12/04/2014 Patient Education: [...] glucose control. 08/14/2014 Appointment: Mila Nicole WPtel: [facility] [place] ([place] New Patient 08/14/2014 Patient [...] to allow for greater blood glucose control. [id number], 02/2018 junior nordisk CHECK LABS AND UA XRAY LUMBAR . Low back pain-xray lumbar spine Dysuria- improved-will culture urine [id number] changes today . Hypertension - well controlled [...]
--- OUTSIDE RECORDS SUMMARY | 2018-03-30 10:48 | XMS REPORT | CCD ---
Author Author [facility] Organization [facility] Address [address] [place] [address] Phone Care Team Providers Care Founder Name Role Phone PP Unavailable CCM Unavailable Summary Purpose Interface Exchange Insurance Providers Payer name Policy type / Coverage type Covered alliance party ID Effective Begin Date Effective End Date WPS Medicare Part B Medicare Part B [id number] Unknown AARP Medicare Part B [id number] Unknown Family history Mother Diagnosis Age At [...] Unknown 3 08/14/[address]: 801380847 Never smoker 08/14/[address]: 285559387 Never drinks alcohol 08/14/2014 Allergies, Adverse Reactions, Alerts Substance Reaction Codes Entered Date Inactivated Date Status * OTHER REACTION - SEE ANSWER BOX Invokana, Victoza Unknown 07/2017 No Inactive Date Active Paxil has blurred vision RxNorm: 499165 08/14/2014 No Inactive Date Active Lipitor RxNorm: 63171 08/14/2014 No Inactive Date Active Past Medical History Illness Codes Condition Status Onset Date Resolved Date Dysuria ICD-9: 788.1 ICD-10: R30.0 Active 04/15/2017 Unknown Essential (primary) hypertension ICD-9: 401.1 ICD-10: I10 Active 04/15/2017 Unknown Generalized anxiety disorder ICD-9: 300.00 ICD-10: F41.1 Active 01/07/2017 Unknown Major depressive disorder, recurrent, mild ICD-9: 296.31 ICD-10: F33.0 Active 09/14/2016 Unknown Type 2 diabetes mellitus with hyperglycemia ICD-9: 250.00 ICD-10: E11.65 Active 12/03/2014 Unknown Carpal tunnel syndrome, left upper limb ICD-9: 354.0 ICD-10: G56.02 Active 11/25/2017 Unknown Encounter for immunization ICD-9: V04.81 ICD-10: Z23 Active 12/03/2014 Unknown Type 2 diabetes mellitus with hyperglycemia ICD-9: 250.02 ICD-10: E11.65 Active 10/11/2017 Unknown 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 ICD-9: 250.60 ICD-10: E11.43 Active 03/19/2016 Unknown Paroxysmal atrial fibrillation ICD-9: 427.31 ICD-10: I48.0 Active 06/03/2017 Unknown Paroxysmal tachycardia, unspecified ICD-9: 427.2 ICD-10: I47.9 Active 05/12/2017 Unknown Cough ICD-9: 786.2 ICD-10: R05 Active 04/15/2017 Unknown Essential (primary) hypertension ICD-9: 401.9 ICD-10: I10 Active 08/13/2014 Unknown Low back pain ICD-9: 724.2 ICD-10: [...] R30.0 04/15/2017 Active Essential (primary) hypertension ICD-9: 401.1 ICD-10: I10 04/15/2017 Active Generalized anxiety disorder ICD-9: 300.00 ICD-10: F41.1 01/07/2017 Active Major depressive disorder, recurrent, mild ICD-9: 296.31 ICD-10: F33.0 09/14/2016 Active Type 2 diabetes mellitus with hyperglycemia ICD-9: 250.00 ICD-10: E11.65 12/03/2014 Active Carpal tunnel syndrome, left upper limb ICD-9: 354.0 ICD-10: G56.02 11/25/2017 Active Encounter for immunization ICD-9: V04.81 ICD-10: Z23 12/03/2014 Active Type 2 diabetes mellitus with hyperglycemia ICD-9: 250.02 ICD-10: E11.65 10/11/2017 Active 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 ICD-9: 250.60 ICD-10: E11.43 03/19/2016 Active Paroxysmal atrial fibrillation ICD-9: 427.31 ICD-10: I48.0 06/03/2017 Active Paroxysmal tachycardia, unspecified ICD-9: 427.2 ICD-10: I47.9 05/12/2017 Active Cough ICD-9: 786.2 ICD-10: R05 04/15/2017 Active Essential (primary) hypertension ICD-9: 401.9 ICD-10: I10 08/13/2014 Active Low back pain ICD-9: 724.2 ICD-10: [...] Fill Instructions Keflex 500 mg capsule RxNorm: 179638 1 Capsule(s) PO TID 201702/20/2018 Active Keflex 500 mg capsule RxNorm: 000113 1 Capsule(s) PO TID 201702/10/2018 Inactive metoprolol succinate ER 200 mg tablet,extended release 24 hr RxNorm: 837901 1 Tablet(s) PO daily 01/27/2018 No Stop Date Active Eliquis 2.5 mg tablet RxNorm: 8799207 1 Tablet(s) PO BID 2017 No Stop Date Active digoxin 125 mcg tablet RxNorm: 084231 1 Tablet(s) PO daily No Stop Date Active Basaglar KwikPen U-100 Insulin 100 unit/mL (3 mL) subcutaneous RxNorm: 4677263 20 Unit(s) SQ daily 11/25/201705/23 Active UPDATE RX metformin 500 mg tablet RxNorm: 898881 1 Tablet(s) PO UD 1.5 in morning, noon and 1 at bedtime 10/28/2017 10/22/2018 Active Basaglar KwikPen U-100 Insulin 100 unit/mL (3 mL) subcutaneous RxNorm: 3574413 18 Unit(s) SQ daily 10/26/201711/24 Inactive UPDATE RX levothyroxine 50 mcg tablet RxNorm: 246984 TAKE 1 TABLET BY MOUTH ONCE DAILY 10/15/2017 06/11/2018 Active Generic For:SYNTHROID 50MCG TAB 10/15/2017 9:59:00 AM escitalopram 10 mg tablet RxNorm: 715988 1 Tablet(s) PO QPM 01/201809/16/2018 Active Generic For:LEXAPRO 5MG 01/07/2017 9:05:43 AM Basaglar KwikPen U-100 Insulin 100 unit/mL (3 mL) subcutaneous RxNorm: 2893257 15 Unit(s) SQ daily 09/22/201710/25 Inactive potassium chloride ER 20 mEq tablet,extended release RxNorm: 401830 1 Tablet(s) PO daily 06/22/2017 01/17/2018 Inactive Lantus Solostar U-100 Insulin 100 unit/mL (3 mL) subcutaneous pen RxNorm: 375326 10 Unit(s) SQ daily 06/08/2017 Inactive Basaglar KwikPen U-100 Insulin 100 unit/mL (3 mL) subcutaneous RxNorm: 5993902 10 Unit(s) SQ daily 06/08/201706/07 Inactive Basaglar KwikPen U-100 Insulin 100 unit/mL (3 mL) subcutaneous RxNorm: 8698655 10 Unit(s) SQ daily 06/08/201709/21 Inactive Lexapro 5 mg tablet RxNorm: 644134 1 Tablet(s) PO daily 201711/27/2017 Inactive Lexapro 5 mg tablet RxNorm: 753863 1 Tablet(s) PO daily 201705/31/2017 Inactive bisoprolol 5 mg-hydrochlorothiazide 6.25 mg tablet RxNorm: 832831 1 Tablet(s) PO BID 05/04/2017 06/02/2017 Inactive Keflex 500 mg capsule RxNorm: 579810 1 Capsule(s) PO QID 201704/21/2017 Inactive Lantus Solostar 100 unit/mL (3 mL) subcutaneous insulin pen RxNorm: 688435 10 Unit(s) SQ daily 02/03/2017 06/07/2017 Inactive levothyroxine 50 mcg tablet RxNorm: 808490 TAKE 1 TABLET BY MOUTH ONCE DAILY 02/01/2017 09/28/2017 Inactive Generic For:SYNTHROID 50MCG TAB 02/01/2017 9:20:59 AM gabapentin 600 mg tablet RxNorm: 225081 1 Capsule(s) PO TID 01/21/2018 Inactive Lexapro 5 mg tablet RxNorm: 957707 TAKE 1 TABLET BY MOUTH AT BEDTIME 01/07/2017 09/21/2017 Inactive Generic For:LEXAPRO 5MG 01/07/2017 9:05:43 AM Victoza 2-Dariusz 0.6 mg/0.1 mL (18 mg/3 mL) subcutaneous pen injector RxNorm: 615948 1.8 Milligram(s) SQ daily 12/17/201602/07 Inactive Victoza 3-Dariusz 0.6 mg/0.1 mL (18 mg/3 mL) subcutaneous pen injector RxNorm: 463294 Milligram(s) SQ 12/17/2016 02/07/2017 Inactive Zetia 10 mg tablet RxNorm: 296700 1 Tablet(s) PO daily 201611/11/2017 Inactive fluticasone 50 mcg/actuation nasal spray,suspension RxNorm: 0108589 [place] NASAL ONE SPRAY IN EACH NOSTRIL TWICE DAILY 09/28/2016 04/25/2017 Inactive Victoza 2-Dariusz 0.6 mg/0.1 mL (18 mg/3 mL) subcutaneous pen injector RxNorm: 980892 1.2 Milligram(s) SQ daily 09/14/201612/16 Inactive Lexapro 5 mg tablet RxNorm: 425319 1 Tablet(s) PO QHS 201612/12/2016 Inactive metformin 500 mg tablet RxNorm: 950421 1 Tablet(s) PO UD 1.5 in morning, noon and 1 at bedtime 09/08/2016 09/02/2017 Inactive glimepiride 4 mg tablet RxNorm: 802361 TAKE 1 TABLET BY MOUTH ONCE DAILY 07/31/2016 09/13/2016 Inactive Generic For:*AMARYL 4MG 07/31/2016 9:02:38 AM Victoza 2-Dariusz 0.6 mg/0.1 mL (18 mg/3 mL) subcutaneous pen injector RxNorm: 059652 1.2 Milligram(s) SQ daily 05/18/201609/13 Inactive Victoza 2-Dariusz 0.6 mg/0.1 mL (18 mg/3 mL) subcutaneous pen injector RxNorm: 845209 1.2 Milligram(s) SQ daily 04/16/201605/17 Inactive levothyroxine 50 mcg tablet RxNorm: 139104 TAKE 1 TABLET BY MOUTH ONCE DAILY 04/08/2016 12/03/2016 Inactive Generic For:SYNTHROID 50MCG TAB 04/08/2016 9:05:40 AM levothyroxine 50 mcg tablet RxNorm: 662225 1 Tablet(s) PO daily TAKE 1 TABLET BY MOUTH ONCE DAILY 04/08/2016 12/03/2016 Inactive Generic For:SYNTHROID 50MCG TAB N O T I C E PRESCRIPTION PREVIOUSLY AUTHORIZED BY DOCTOR:HENRY BAIG bisoprolol 5 mg-hydrochlorothiazide 6.25 mg tablet RxNorm: 914425 1 Tablet(s) PO BID 03/23/2016 03/17/2017 Inactive Victoza 2-Dariusz 0.6 mg/0.1 mL (18 mg/3 mL) subcutaneous pen injector RxNorm: 993238 0.6 Milligram(s) SQ daily 03/19/201604/15 Inactive Lexapro 5 mg tablet RxNorm: 134464 1 Tablet(s) PO QHS 201606/16/2016 Inactive gabapentin 600 mg tablet RxNorm: 086968 1 Capsule(s) PO TID 07/201601/26/2017 Inactive glimepiride 4 mg tablet RxNorm: 690086 1 Tablet(s) PO daily 06/05/2016 Inactive Victoza 3-Dariusz 0.6 mg/0.1 mL (18 mg/3 mL) subcutaneous pen injector RxNorm: 652862 0.6 Milligram(s) SQ daily x2 weeks, then 1.2 mg SQ daily 03/18/2016 Inactive metformin 500 mg tablet RxNorm: 097478 1 Tablet(s) PO UD 1.5 in morning, noon and 1 at bedtime 08/14/2015 08/07/2016 Inactive gabapentin 600 mg tablet RxNorm: 333875 1 Capsule(s) PO TID SHE IS ONLY TAKING 1 QD 08/14/2015 03/18/2016 Inactive fluticasone 50 mcg/actuation nasal spray,suspension RxNorm: 045481 [place] NASAL ONE SPRAY IN EACH NOSTRIL TWICE DAILY 07/26/2015 07/25/2015 Inactive fluticasone 50 mcg/actuation nasal spray,suspension RxNorm: 3815743 [place] NASAL ONE SPRAY IN EACH NOSTRIL TWICE DAILY 07/26/2015 02/20/2016 Inactive bisoprolol 5 mg-hydrochlorothiazide 6.25 mg tablet RxNorm: 047973 1 Tablet(s) PO daily 1 Tablet(s) PO BID 07/17/20152015 Inactive metformin 500 mg tablet RxNorm: 681715 1 Tablet(s) PO TID 1 Tablet(s) PO TID 07/17/2015 08/13/2015 Inactive Diflucan 100 mg tablet RxNorm: 689906 1 Tablet(s) PO daily 06/201507/21/2015 Inactive Zetia 10 mg tablet RxNorm: 367675 1 Tablet(s) PO daily 201506/03/2016 Inactive bisoprolol 5 mg-hydrochlorothiazide 6.25 mg tablet RxNorm: 510145 1 Tablet(s) PO BID 04/18/2015 07/16/2015 Inactive metformin 500 mg tablet RxNorm: 729935 1 Tablet(s) PO TID 03/0106/28/2015 Inactive glimepiride 4 mg tablet RxNorm: 207641 1 Tablet(s) PO daily 01/30/2015 Inactive levothyroxine 50 mcg tablet RxNorm: 214316 TAKE 1 TABLET BY MOUTH ONCE DAILY 01/31/2015 09/27/2015 Inactive Generic For:SYNTHROID 50MCG TAB N O T I C E PRESCRIPTION PREVIOUSLY AUTHORIZED BY DOCTOR:HENRY BAIG glimepiride 4 mg tablet RxNorm: 292071 1 Tablet(s) PO daily 07/29/2015 Inactive Invokana 100 mg tablet RxNorm: 1517232 1 Tablet(s) PO daily 07/16/2015 Inactive bisoprolol 5 mg-hydrochlorothiazide 6.25 mg tablet RxNorm: 314625 1 Tablet(s) PO BID 08/27/2014 02/22/2015 Inactive metformin 500 mg tablet RxNorm: 023381 1 Tablet(s) PO TID 08/1012/07/2014 Inactive metformin 500 mg tablet RxNorm: 160438 1 Tablet(s) PO TID 08/1008/09/2014 Inactive Fish Oil 1,000 mg capsule RxNorm: 1 Capsule(s) PO daily No Start Date Active Protonix 40 mg tablet,delayed release RxNorm: 834303 1 Tablet(s) PO QAM No Start Date Active furosemide 40 mg tablet RxNorm: 164577 1 Tablet(s) PO daily No Start Date Active pen needle, diabetic 31 gauge x 1/6" RxNorm: Miscellaneous No Start Date Active nitroglycerin 0.4 mg sublingual tablet RxNorm: 166764 1 Tablet(s) SL as needed chest pain No Start Date Active amlodipine 5 mg tablet RxNorm: 466346 1 Tablet(s) PO daily No Start Date Active Entresto 24 mg-26 mg tablet RxNorm: 1914863 1 Tablet(s) PO BID No Start Date Active aspirin 81 mg chewable tablet RxNorm: 708206 1 Tablet(s) PO daily No Start Date 06/02/2017 Inactive Eliquis 5 mg tablet RxNorm: 5894057 1 Tablet(s) PO BID No Start Date 01/26/2018 Inactive bisoprolol-hydrochlorothiazide oral RxNorm: 82267 oral No Start Date 08/26/2014 Inactive levothyroxine 50 mcg tablet RxNorm: 883094 1 Tablet(s) PO daily No Start Date 01/30/2015 Inactive potassium chloride ER 20 mEq tablet,extended release RxNorm: 720268 1 Tablet(s) PO daily No Start Date 06/21/2017 Inactive digoxin 250 mcg tablet RxNorm: 294039 1 Tablet(s) PO daily No Start Date 01/26/2018 Inactive Invokana 100 mg tablet RxNorm: 9033721 1 Tablet(s) PO daily No Start Date 12/11/2014 Inactive Victoza 3-Dariusz 0.6 mg/0.1 mL (18 mg/3 mL) subcutaneous pen injector RxNorm: 924226 0.6 Milligram(s) SQ daily x2 weeks, then 1.2 mg SQ daily No Start Date 12/01/2015 Inactive Effient 10 mg tablet RxNorm: 398863 1 Tablet(s) PO QAM No Start Date 01/26/2018 Inactive Zetia 10 mg tablet RxNorm: 144601 1 Tablet(s) PO BID No Start Date 03/18/2016 Inactive metoprolol succinate ER 100 mg tablet,extended release 24 hr RxNorm: 855784 1 Tablet(s) PO daily No Start Date 2017 Inactive gabapentin 300 mg capsule RxNorm: 893155 1 Capsule(s) PO BID No Start Date 08/13/2015 Inactive Lasix 40 mg tablet RxNorm: 147602 1 Tablet(s) PO BID No Start Date 04/14/2017 Inactive Coreg 3.125 mg tablet RxNorm: 941609 1 Tablet(s) PO BID with meals No Start Date 06/02/2017 Inactive Medication Administered No Medication Administered data Immunizations Vaccine Codes Date Status Influenza CVX: 141 11/25/2017 completed Influenza CVX: 141 12/17/2016 completed Influenza CVX: 141 11/14/2015 completed Influenza CVX: 141 12/04/2014 completed Assessments Condition Codes Effective Dates Dysuria ICD-10: R30.0 ICD-9: 788.1 02/07/2018 Essential (primary) hypertension ICD-10: I10 ICD-9: 401.1 01/27/2018 Generalized anxiety disorder ICD-10: F41.1 ICD-9: 300.00 01/27/2018 Type 2 diabetes mellitus with hyperglycemia ICD-10: E11.65 ICD-9: 250.00 01/27/2018 Major depressive disorder, recurrent, mild ICD-10: [...] (primary) hypertension ICD-10: I10 ICD-9: 401.9 03/19/2017 Low back pain ICD-10: M54.5 ICD-9: 724.2 08/14/2015 Hypothyroidism, unspecified ICD-10: E03.9 ICD-9: 244.9 07/17/2015 Headache ICD-10: R51 ICD-9: 784.0 03/25/2015 ESSENTIAL HYPERTENSION ICD-9: 401.9 12/04 Aortic stenosis ICD-9: 424.1 12/04/2014 DIABETES TYPE II ICD-9: 250.00 2014 VACCIN FOR INFLUENZA ICD-9: V04.81 2014 Diabetes mellitus out of control ICD-9: 250.02 08/14/2014 Reason For Visit Reason For Visit Effective Dates Notes diabetes mellitus 01/27/2018 diabetes mellitus 11/25/2017 diabetes mellitus 10/26/2017 diabetes mellitus 10/11/2017 diabetes mellitus 09/22/2017 Hospital Follow Up 07/06/2017 Hospital Follow Up 06/03/2017 arrhythmia 05/12/2017 Hospital Follow Up 04/15/2017 stress test and then shipped to [facility] Follow Up 03/19/2017 stress test and then shipped to [facility] diabetes mellitus 02/03/2017 headache 01/07/2017 diabetes mellitus 12/17/2016 diabetes mellitus 09/14/2016 diabetes mellitus 06/18/2016 medication follow up 04/16/2016 back pain 03/19/2016 back pain 11/14/2015 back pain 08/14/2015 diabetes mellitus 07/17/2015 Hospital Follow Up 03/25/2015 diabetes mellitus 12/04/2014 diabetes mellitus 08/14/2014 Results Observation Observation Code Item Item Code Result Date Culture Urine [id number] URINE CULTURE SEE NOTES 02/11/2018 Culture Urine [id number] Continued Results 02/11/2018 Urine Culture Ucult Complete >100,000 col/ml aerobic growth sent to ref lab 02/08/2018 %Hba1C Vly041 % HbA1c 27158-2 6.8 % 01/12/2018 %Hba1C Kja603 Gluc Ave 148 mg/dL 01/12/2018 Metabolic Ord15 [...] 28.6 pg 01/11/2018 Cbc With Differential Ord2 [place]% 7.8 % 01/11/2018 Cbc With Differential Ord2 Eos% 2.2 % 01/11/2018 Cbc With Differential Ord2 MCHC 31.8 pg 01/11/2018 Cbc With Differential Ord2 PLT 304 K/ul 01/11/2018 Cbc With Differential Ord2 Baso% 0.7 % 01/11/2018 Cbc With Differential Ord2 Neut ABS# 3.09 K/ul 01/11/2018 Cbc With Differential Ord2 RDW 15.4 % 01/11/2018 Cbc With Differential Ord2 Lymph ABS# 1.70 K/ul 01/11/2018 Cbc With Differential Ord2 [place] ABS# 0.4 K/ul 01/11/2018 Cbc With Differential Ord2 Eos ABS# 0.1 K/ul 01/11/2018 Cbc With Differential Ord2 Baso ABS# 0.0 K/ul 01/11/2018 Magnesium Ord90 Mag 1.7 mg/dL 01/11/2018 Test(s) Not Perfromed [id number] Test(s) Not Performed Test(s) Not Performed. See Below: 09/20/2017 Test(s) Not Perfromed [id number] TEST NAME BNP 09/20/2017 Test(s) Not Perfromed [id number] Rejection Reason Patient Refused due to lack of coving diganosis 09/20/2017 Test(s) Not Perfromed [id number] COMMENT Dorita Notified 09/20 Test(s) Not Perfromed LMA0956 Electric Power Superintendent Miguel Mclaughlin 2017 B Type Natriuretic Peptide Vpk9868 B-FIRE PREVENTION ENGINEER 889.00 pg/ml 2017 Cbc With Differential Ord2 [...] 28.9 pg 09/20/2017 Cbc With Differential Ord2 [place]% 5.6 % 09/20/2017 Cbc With Differential Ord2 [...] 1.68 K/ul 09/20/2017 Cbc With Differential Ord2 [place] ABS# 0.3 K/ul 09/20/2017 Cbc With Differential Ord2 Eos ABS# 0.1 K/ul 09/20/2017 Cbc With Differential Ord2 Baso ABS# 0.0 K/ul 09/20/2017 %Hba1C Kbr675 % HbA1c 67301-6 7.9 % 09/20/2017 %Hba1C Vis787 Gluc Ave 180 mg/dL 09/20/2017 Magnesium Ord90 [...] 88.5 fl 07/07/2017 Cbc With Differential Ord2 [place]% 7.9 % 07/07/2017 Cbc With Differential Ord2 [...] 1.34 K/ul 07/07/2017 Cbc With Differential Ord2 [place] ABS# 0.4 K/ul 07/07/2017 Cbc With Differential Ord2 Eos ABS# 0.1 K/ul 07/07/2017 Cbc With Differential Ord2 Baso ABS# 0.0 K/ul 07/07/2017 Comp Metabolic Zcx190 NA 142 mEq/L 07/07/2017 Comp Metabolic Fvr177 K 4.3 mEq/L 07/07/2017 Comp Metabolic Aet684 CL 105 mEq/L 07/07/2017 Comp Metabolic Whw080 CO2 28.0 mEq/L 07/07/2017 Comp Metabolic Vrm568 ANION GAP 13 07/07/2017 Comp Metabolic Vza492 GLUCOSE 197 mg/dL 07/07/2017 Comp Metabolic Xvl518 Creat 1.1 mg/dL 07/07/2017 Comp Metabolic Inh953 eGFR 51 ml/min/1.73m2 07/07/2017 Comp Metabolic Rdq510 BUN 21 mg/dL 07/07/2017 Comp Metabolic Mfb671 B/C Ratio 18.9 Ratio 07/07/2017 Comp Metabolic Rgy554 CALCIUM 8.9 mg/dL 07/07/2017 Comp Metabolic Jqr356 ALK PHOS 51 U/L 07/07/2017 Comp Metabolic Lmj849 AST(SGOT) 11 U/L 07/07/2017 Comp Metabolic Hwq731 ALT(SGPT) 11 U/L 07/07/2017 Comp Metabolic Yqb803 BILI T 0.3 mg/dL 07/07/2017 Comp Metabolic Reo311 ALBUMIN 4.2 g/dL 07/07/2017 Comp Metabolic Mdl462 TPRO 6.0 g/dL 07/07/2017 Comp Metabolic Vbz427 GLOB 1.8 g/dL 07/07/2017 Comp Metabolic Opc053 A/G Ratio 2.3 Ratio 07/07/2017 Comp Metabolic Lca190 Osmo 292 mOsmo 07/07/2017 Digoxin Ord9 DIGOXIN 1.3 NG/ML 07/07/2017 Tsh Ord6 TSH (3rd IS) 2.19 uIU/mL 07/07/2017 B Type Natriuretic Peptide Mgx1688 B-FIRE PREVENTION ENGINEER 801.00 pg/ml 2017 Culture Urine [id number] URINE CULTURE SEE NOTES 04/19/2017 Culture Urine [id number] Continued Results 04/19/2017 Urine Culture Ucult Complete >100,000 col/ml aerobic growth sent to ref lab 04/16/2017 Comp Metabolic Ele914 NA 140 mEq/L 01/26/2017 Comp Metabolic Lkk313 K 4.6 mEq/L 01/26/2017 Comp Metabolic Sad035 CL 102 mEq/L 01/26/2017 Comp Metabolic Jzo848 CO2 28.0 mEq/L 01/26/2017 Comp Metabolic Era325 ANION GAP 15 01/26/2017 Comp Metabolic Map049 GLUCOSE 173 mg/dL 01/26/2017 Comp Metabolic Vkt510 Creat 1.0 mg/dL 01/26/2017 Comp Metabolic Dvj525 eGFR 56 ml/min/1.73m2 01/26/2017 Comp Metabolic Mbx362 BUN 23 mg/dL 01/26/2017 Comp Metabolic Svz686 B/C Ratio 22.5 Ratio 01/26/2017 Comp Metabolic Ivv244 CALCIUM 9.4 mg/dL 01/26/2017 Comp Metabolic Wvk018 ALK PHOS 52 U/L 01/26/2017 Comp Metabolic Tei799 AST(SGOT) 12 U/L 01/26/2017 Comp Metabolic Ybf866 ALT(SGPT) 12 U/L 01/26/2017 Comp Metabolic Ouw634 BILI T 0.5 mg/dL 01/26/2017 Comp Metabolic Jar880 ALBUMIN 4.4 g/dL 01/26/2017 Comp Metabolic Cau300 TPRO 6.5 g/dL 01/26/2017 Comp Metabolic Urd493 GLOB 2.1 g/dL 01/26/2017 Comp Metabolic Swp785 A/G Ratio 2.1 Ratio 01/26/2017 Comp Metabolic Uks948 Osmo 287 mOsmo 01/26/2017 Cbc With Differential [...] 29.2 pg 01/26/2017 Cbc With Differential Ord2 [place]% 4.9 % 01/26/2017 Cbc With Differential Ord2 [...] 1.75 K/ul 01/26/2017 Cbc With Differential Ord2 [place] ABS# 0.4 K/ul 01/26/2017 Cbc With Differential Ord2 Eos ABS# 0.1 K/ul 01/26/2017 Cbc With Differential Ord2 Baso ABS# 0.0 K/ul 01/26/2017 %Hba1C Idx269 % HbA1c 40298-1 7.8 % 01/26/2017 %Hba1C Phw244 Gluc Ave 177 mg/dL 01/26/2017 Lipid Ord30 CHOL 239 mg/dL 01/26/2017 Lipid Ord30 HDL 40.0 mg/dl 01/26/2017 Lipid Ord30 TRIG 325 mg/dL 01/26/2017 Lipid Ord30 LDL 134 mg/dL 01/26/2017 Lipid Ord30 C/HDL 6.0 Ratio 01/26/2017 Free T4 Syx558 FREE T4 0.95 ng/dL 01/26/2017 Tsh Ord6 [...] Metabolic Ord15 CALCIUM 9.0 mg/dL 09/08/2016 %Hba1C Uew182 % HbA1c 92424-6 7.5 % 09/08/2016 %Hba1C Acx080 Gluc Ave 169 mg/dL 09/08/2016 Tsh Ord6 hTSH II 2.64 uIU/mL 03/13/2016 %Hba1C Kvg136 % HbA1c 60016-5 8.2 % 03/13/2016 %Hba1C Ctv226 Gluc Ave 189 mg/dL 03/13/2016 Lipid Ord30 CHOL 233 mg/dL 03/13/2016 Lipid Ord30 HDL 46.0 mg/dl 03/13/2016 Lipid Ord30 TRIG 276 mg/dL 03/13/2016 Lipid Ord30 LDL 132 mg/dL 03/13/2016 Lipid Ord30 C/HDL 5.1 Ratio 03/13/2016 Free T4 Lgq886 FREE T4 0.94 ng/dL 03/13/2016 Cbc With [...] 30.3 pg 03/13/2016 Cbc With Differential Ord2 [place]% 6.1 % 03/13/2016 Cbc With Differential Ord2 [...] 1.63 K/ul 03/13/2016 Cbc With Differential Ord2 [place] ABS# 0.3 K/ul 03/13/2016 Cbc With Differential Ord2 Eos ABS# 0.1 K/ul 03/13/2016 Cbc With Differential Ord2 Baso ABS# 0.0 K/ul 03/13/2016 Comp Metabolic Ddo635 NA 139 mEq/L 03/13/2016 Comp Metabolic Vcw198 K 4.3 mEq/L 03/13/2016 Comp Metabolic Rzy707 CL 103 mEq/L 03/13/2016 Comp Metabolic Kho681 CO2 28.0 mEq/L 03/13/2016 Comp Metabolic Gsw260 ANION GAP 12 03/13/2016 Comp Metabolic Yzh269 GLUCOSE 200 mg/dL 03/13/2016 Comp Metabolic Oik978 Creat 0.9 mg/dL 03/13/2016 Comp Metabolic Byz619 eGFR 69 ml/min/1.73m2 03/13/2016 Comp Metabolic Qzb643 BUN 19 mg/dL 03/13/2016 Comp Metabolic Tlj661 B/C Ratio 22.4 Ratio 03/13/2016 Comp Metabolic Kdd145 CALCIUM 9.0 mg/dL 03/13/2016 Comp Metabolic Zfj431 ALK PHOS 57 U/L 03/13/2016 Comp Metabolic Jut892 AST(SGOT) 13 U/L 03/13/2016 Comp Metabolic Srv355 ALT(SGPT) 16 U/L 03/13/2016 Comp Metabolic Crh205 BILI T 0.4 mg/dL 03/13/2016 Comp Metabolic Ovg723 ALBUMIN 4.2 g/dL 03/13/2016 Comp Metabolic Zke354 TPRO 6.3 g/dL 03/13/2016 Comp Metabolic Rfn489 GLOB 2.1 g/dL 03/13/2016 Comp Metabolic Grj473 A/G Ratio 2.0 Ratio 03/13/2016 Comp Metabolic Yke915 Osmo 285 mOsmo 03/13/2016 %Hba1C Dxy088 % HbA1c 68808-7 8.3 % 11/14/2015 %Hba1C Oyk134 Gluc Ave 192 mg/dL 11/14/2015 Lipid Ord30 CHOL 210 mg/dL 07/19/2015 Lipid Ord30 HDL 43.0 mg/dl 07/19/2015 Lipid Ord30 TRIG 311 mg/dL 07/19/2015 Lipid Ord30 LDL 105 mg/dL 07/19/2015 Lipid Ord30 C/HDL 4.9 Ratio 07/19/2015 %Hba1C Bnz094 % HbA1c 48622-5 7.6 % 07/19/2015 %Hba1C Qer030 Gluc Ave 171 mg/dL 07/19/2015 Cbc With [...] 87.6 fl 07/19/2015 Cbc With Differential Ord2 MCH 28.8 pg 07/19/2015 Cbc With Differential Ord2 [place]% 6.1 % 07/19/2015 Cbc With Differential Ord2 [...] 1.63 K/ul 07/19/2015 Cbc With Differential Ord2 [place] ABS# 0.3 K/ul 07/19/2015 Cbc With Differential Ord2 Eos ABS# 0.1 K/ul 07/19/2015 Cbc With Differential Ord2 Baso ABS# 0.0 K/ul 07/19/2015 Cbc With Differential Ord2 New Analyzer Notice Please note new ref ranges starting 03-27-2015 due to implemntation of new five part differential hematolgy analyzer. 07/19/2015 Comp Metabolic Mop892 NA 138 mEq/L 07/19/2015 Comp Metabolic Nnn922 K 4.3 mEq/L 07/19/2015 Comp Metabolic Hbg077 CL 100 mEq/L 07/19/2015 Comp Metabolic Ycx100 CO2 33.0 mEq/L 07/19/2015 Comp Metabolic Vra259 ANION GAP 9 07/19/2015 Comp Metabolic Zsr877 GLUCOSE 149 mg/dL 07/19/2015 Comp Metabolic Eoe060 Creat 0.9 mg/dL 07/19/2015 Comp Metabolic Imv270 eGFR 62 ml/min/1.73m2 07/19/2015 Comp Metabolic Fei636 BUN 19 mg/dL 07/19/2015 Comp Metabolic Vwk100 B/C Ratio 20.2 Ratio 07/19/2015 Comp Metabolic Rdb727 CALCIUM 9.5 mg/dL 07/19/2015 Comp Metabolic Emr951 ALK PHOS 52 U/L 07/19/2015 Comp Metabolic Jnv343 AST(SGOT) 15 U/L 07/19/2015 Comp Metabolic Kmz361 ALT(SGPT) 14 U/L 07/19/2015 Comp Metabolic Nxb434 BILI T 0.5 mg/dL 07/19/2015 Comp Metabolic Poz225 ALBUMIN 4.4 g/dL 07/19/2015 Comp Metabolic Cfu439 TPRO 6.4 g/dL 07/19/2015 Comp Metabolic Axm052 GLOB 2.0 g/dL 07/19/2015 Comp Metabolic Wnt484 A/G Ratio 2.2 Ratio 07/19/2015 Comp Metabolic Jcm016 Osmo 281 mOsmo 07/19/2015 Free T4 Bjo316 FREE T4 0.92 ng/dL 07/19/2015 Tsh Ord6 hTSH II 1.95 uIU/mL 07/19/2015 Microalbumin Deo492 MicroAlb 0.4 mg/dL 07/19/2015 Comp Metabolic Bmj497 NA 137 mEq/L 12/04/2014 Comp Metabolic Jxg022 K 4.0 mEq/L 12/04/2014 Comp Metabolic Weg458 CL 100 mEq/L 12/04/2014 Comp Metabolic Iyd266 CO2 29.0 mEq/L 12/04/2014 Comp Metabolic Vbb551 ANION GAP 12 12/04/2014 Comp Metabolic Fst698 GLUCOSE 171 mg/dL 12/04/2014 Comp Metabolic Fes046 Creat 1.0 mg/dL 12/04/2014 Comp Metabolic Aws855 eGFR 60 ml/min/1.73m2 12/04/2014 Comp Metabolic Hzk776 BUN 25 mg/dL 12/04/2014 Comp Metabolic Ifj273 B/C Ratio 25.8 Ratio 12/04/2014 Comp Metabolic Enz101 CALCIUM 9.4 mg/dL 12/04/2014 Comp Metabolic Qhm746 ALK PHOS 60 U/L 12/04/2014 Comp Metabolic Bay818 AST(SGOT) 13 U/L 12/04/2014 Comp Metabolic Zlb748 ALT(SGPT) 17 U/L 12/04/2014 Comp Metabolic Aba839 BILI T 0.4 mg/dL 12/04/2014 Comp Metabolic Kxd109 ALBUMIN 4.4 g/dL 12/04/2014 Comp Metabolic Yrk783 TPRO 6.9 g/dL 12/04/2014 Comp Metabolic Alp552 GLOB 2.5 g/dL 12/04/2014 Comp Metabolic Zvj432 A/G Ratio 1.8 Ratio 12/04/2014 Comp Metabolic Rsd429 Osmo 282 mOsmo 12/04/2014 Tsh Ord6 hTSH II 1.78 uIU/mL 12/04/2014 %Hba1C Onh514 % HbA1c 13770-2 8.3 % 12/04/2014 %Hba1C Tqc469 Gluc Ave 192 mg/dL 12/04/2014 Free T4 Kwf582 FREE T4 0.85 ng/dL 12/04/2014 Lipid Ord30 [...] Systems System Result Effective Dates Constitutional No fever 01/27/2018 Constitutional No malaise [...] Codes Date URINALYSIS NONAUTO W/O SCOPE CPT-4: 85540 02/07/2018 ADMIN INFLUENZA VIRUS VAC CPT-4: G0008 11/25/2017 FLU VAC NO PRSV 4 ANABELLE 3 YRS+ CPT-4: 08589 11/25/2017 GLUC MONITOR CONT PHYS I&R CPT-4: 85521 10/26/2017 GLUCOSE MONITORING CONT CPT-4: 70870 10/11/2017 URINALYSIS NONAUTO W/O SCOPE CPT-4: 73838 04/15/2017 FLU VAC NO PRSV 4 ANABELLE 3 YRS+ CPT-4: 09579 12/17/2016 ADMIN INFLUENZA VIRUS VAC CPT-4: G0008 12/17/2016 FLU VACC PRSV FREE INC ANTIG Formatting Model/CDA Sections, Assigned to/Nery Daniels CPT-4: 34546Zsmaufs 11/14/2015 ADMIN INFLUENZA VIRUS VAC CPT-4: G0008 11/14/2015 ADMIN INFLUENZA VIRUS VAC Formatting Model/CDA Sections, Assigned to/Nery Daniels CPT-4: B2453Qebvffp 12/04/2014 FLU VACC 4 ANABELLE 3 YRS PLUS IM SNOMED CT: [id number] CPT-4: 15734 12/04/2014 Vital Signs Date Vital 01/27/2018 Blood Pressure 1: 142/70 Code : 8480-6 BMI: 29.5 Code : 28324-3 Heart Rate 1 : 61 bpm Height: 5' SpO2: 99% Weight: 151 lbs 11/25/2017 Blood Pressure 1: 148/72 Code : 8480-6 BMI: 30.9 Code : 59798-4 Heart Rate 1 : 62 bpm Height: 5' SpO2: 98% Weight: 158 lbs 10/26/2017 Blood Pressure 1: 156/74 Code : 8480-6 BMI: 31.2 Code : 01262-3 Heart Rate 1 : 71 bpm Height: 5' SpO2: 98% Weight: 160 lbs 10/11/2017 Blood Pressure 1: 128/70 Code : 8480-6 BMI: 30.9 Code : 44719-4 Heart Rate 1 : 70 bpm Height: 5' SpO2: 95% Weight: 158 lbs 09/22/2017 Blood Pressure 1: 110/52 Code : 8480-6 BMI: 30.9 Code : 18541-0 Heart Rate 1 : 72 bpm Height: 5' SpO2: 99% Weight: 158 lbs 07/06/2017 Blood Pressure 1: 120/85 Code : 8480-6 BMI: 31.4 Code : 85628-6 Heart Rate 1 : 74 bpm Height: 5' SpO2: 92% Weight: 161 lbs 06/03/2017 Blood Pressure 1: 120/62 Code : 8480-6 BMI: 31.1 Code : 32957-5 Heart Rate 1 : 73 bpm Height: 5' SpO2: 99% Weight: 159 lbs 05/12/2017 Blood Pressure 1: 132/68 Code : 8480-6 BMI: 32.4 Code : 26754-1 Heart Rate 1 : 95 bpm Height: 5' SpO2: 97% Weight: 166 lbs 04/15/2017 Blood Pressure 1: 128/84 Code : 8480-6 BMI: 32.4 Code : 25275-7 Heart Rate 1 : 62 bpm Height: 5' SpO2: 97% Weight: 166 lbs 03/19/2017 Blood Pressure 1: 112/60 Code : 8480-6 BMI: 32.0 Code : 28605-9 Height: 5' Weight: 164 lbs 02/03/2017 Blood Pressure 1: 128/76 Code : 8480-6 BMI: 33.4 Code : 10949-1 Heart Rate 1 : 91 bpm Height: 5' SpO2: 99% Weight: 171 lbs 01/07/2017 Blood Pressure 1: 126/74 Code : 8480-6 BMI: 34.2 Code : 52036-8 Heart Rate 1 : 83 bpm Height: 5' SpO2: 97% Weight: 175 lbs 12/17/2016 Blood Pressure 1: 122/72 Code : 8480-6 BMI: 34.0 Code : 87458-0 Heart Rate 1 : 78 bpm Height: 5' SpO2: 97% Weight: 174 lbs 09/14/2016 Blood Pressure 1: 128/86 Code : 8480-6 BMI: 33.8 Code : 95063-3 Heart Rate 1 : 88 bpm Height: 5' SpO2: 96% Weight: 173 lbs 06/18/2016 Blood Pressure 1: 122/74 Code : 8480-6 BMI: 34.8 Code : 62803-3 Heart Rate 1 : 78 bpm Height: 5' SpO2: 98% Weight: 178 lbs 04/16/2016 Blood Pressure 1: 134/68 Code : 8480-6 BMI: 35.0 Code : 73057-1 Heart Rate 1 : 67 bpm Height: 5' SpO2: 97% Weight: 179 lbs 03/19/2016 Blood Pressure 1: 132/74 Code : 8480-6 BMI: 34.6 Code : 54691-8 Heart Rate 1 : 74 bpm Height: 5' SpO2: 97% Weight: 177 lbs 11/14/2015 Blood Pressure 1: 132/70 Code : 8480-6 BMI: 35.2 Code : 77763-5 Heart Rate 1 : 68 bpm Height: 5' Weight: 180 lbs 08/14/2015 Blood Pressure 1: 122/74 Code : 8480-6 BMI: 33.8 Code : 65734-6 Heart Rate 1 : 73 bpm Height: 5' SpO2: 93% Weight: 173 lbs 07/17/2015 Blood Pressure 1: 138/78 Code : 8480-6 BMI: 34.0 Code : 45688-8 Heart Rate 1 : 85 bpm Height: 5' SpO2: 97% Weight: 174 lbs 03/25/2015 Blood Pressure 1: 130/78 Code : 8480-6 BMI: 33.2 Code : 76143-0 Heart Rate 1 : 77 bpm Height: 5' SpO2: 97% Weight: 170 lbs 12/04/2014 Blood Pressure 1: 120/74 Code : 8480-6 BMI: 35.4 Code : 56442-7 Heart Rate 1 : 67 bpm Height: 5' SpO2: 94% Weight: 181 lbs 5 oz 08/14/2014 Blood Pressure 1: 132/68 Code : 8480-6 BMI: 32.1 Code : 84953-7 Heart Rate 1 : 62 bpm Height: 5'3" SpO2: 97% Weight: 184 lbs Functional Status No Functional Status data History of Present Illness Symptom Name Status Result Effective Date Notes diabetes mellitus Quality insulin dependent 01/27/2018 None [...] data Encounters Encounter Performer Location Codes Date ([id number]) 00810 EST. PATIENT, LEVEL IV Diagnosis: Type 2 diabetes mellitus with hyperglycemia[ICD10: E11.65] Diagnosis: Essential (primary) hypertension[ICD10: I10] Diagnosis: Major depressive disorder, recurrent, mild[ICD10: F33.0] Diagnosis: Generalized anxiety disorder[ICD10: F41.1] [facility] CPT-4: 67059 01/27/2018 ([id number]) 83562 EST. PATIENT, LEVEL IV Diagnosis: Type 2 diabetes mellitus with hyperglycemia[ICD10: E11.65] Diagnosis: Essential (primary) hypertension[ICD10: I10] Diagnosis: Encounter for immunization[ICD10: Z23] Diagnosis: Carpal tunnel syndrome, left upper limb[ICD10: G56.02] Claudia Nicole MD, [facility] CPT-4: 55907 11/25/2017 ([id number]) 86254 EST. PATIENT, LEVEL III Diagnosis: Type 2 diabetes mellitus with hyperglycemia[ICD10: E11.65] Claudia Nicole MD, [facility] CPT-4: 41847 10/26/2017 ([id number]) Miscellaneous no charge Diagnosis: Type 2 diabetes mellitus with hyperglycemia[ICD10: E11.65] Claudia Nicole MD, [facility] CPT-4: 76629 10/18/2017 ([id number]) 29646 EST. 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 PATIENT, LEVEL IV Diagnosis: Type 2 diabetes mellitus with hyperglycemia[ICD10: E11.65] Diagnosis: Paroxysmal atrial fibrillation[ICD10: I48.0] Diagnosis: Essential (primary) hypertension[ICD10: I10] Mila Nicole MD, [facility] CPT-4: 09497 07/06/2017 ([id number]) 43812 EST. PATIENT, LEVEL IV Diagnosis: Essential (primary) hypertension[ICD10: I10] Diagnosis: Type 2 diabetes mellitus with hyperglycemia[ICD10: E11.65] Diagnosis: Paroxysmal atrial fibrillation[ICD10: I48.0] Claudia Nicole MD, [facility] CPT-4: 96587 06/03/2017 68087 EST. PATIENT, LEVEL III Diagnosis: Generalized anxiety disorder[ICD10: F41.1] Diagnosis: Major depressive disorder, recurrent, moderate[ICD10: F33.1] Diagnosis: Paroxysmal tachycardia, unspecified[ICD10: I47.9] Gardenia Nicole MD, [facility] CPT-4: 01524 05/12/2017 ([id number]) 43263 EST. PATIENT, LEVEL IV Diagnosis: Essential (primary) hypertension[ICD10: I10] Diagnosis: Cough[ICD10: R05] Diagnosis: Dysuria[ICD10: R30.0] Mila Nicole MD, [facility] CPT-4: 97069 04/15/2017 ([id number]) 45283 EST. PATIENT, LEVEL IV Diagnosis: Type 2 diabetes mellitus with hyperglycemia[ICD10: E11.65] Diagnosis: Essential (primary) hypertension[ICD10: I10] Mila Nicole MD, [facility] CPT-4: 95358 03/19/2017 ([id number]) 91397 EST. PATIENT, LEVEL III Diagnosis: Type 2 diabetes mellitus with hyperglycemia[ICD10: E11.65] Mila Nicole MD , [facility] CPT-4: 33465 02/03/2017 79805 EST. PATIENT, LEVEL IV Diagnosis: Generalized anxiety disorder[ICD10: F41.1] Diagnosis: Type 2 diabetes mellitus with hyperglycemia[ICD10: E11.65] Diagnosis: Essential (primary) hypertension[ICD10: I10] Gardenia Nicole MD, [facility] CPT-4: 22066 01/07/2017 ([id number]) 27811 EST. PATIENT, LEVEL III Diagnosis: Type 2 diabetes mellitus with hyperglycemia[ICD10: E11.65] Diagnosis: Encounter for immunization[ICD10: Z23] Mila Nicole MD, [facility] CPT-4: 67906 12/17/2016 ([id number]) 90699 EST. PATIENT, LEVEL IV Diagnosis: Type 2 diabetes mellitus with hyperglycemia[ICD10: E11.65] Diagnosis: Essential (primary) hypertension[ICD10: I10] Diagnosis: Major depressive disorder, recurrent, mild[ICD10: F33.0] Mila Nicole MD, [facility] CPT-4: 02193 09/14/2016 ([id number]) 00175 EST. 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 PATIENT, LEVEL IV Diagnosis: Type 2 diabetes mellitus with hyperglycemia[ICD10: E11.65] Diagnosis: Essential (primary) hypertension[ICD10: I10] Mila Nicole MD [facility] CPT-4: 22695 04/16/2016 ([id number]) 62870 EST. 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 PATIENT, LEVEL IV Diagnosis: Type 2 diabetes mellitus with hyperglycemia[ICD10: E11.65] Diagnosis: Encounter for immunization[ICD10: Z23] Diagnosis: Essential (primary) hypertension[ICD10: I10] Mila Nicole MD [facility] CPT-4: 29194 11/14/2015 ([id number]) 25908 EST. PATIENT, LEVEL IV Diagnosis: Type 2 diabetes mellitus with hyperglycemia[ICD10: E11.65] Diagnosis: Essential (primary) hypertension[ICD10: I10] Diagnosis: Low back pain[ICD10: M54.5] Mila Nicole MD, [facility] CPT- 4: 36328 08/14/2015 ([id number]) 19202 EST. PATIENT, LEVEL IV Diagnosis: Type 2 diabetes mellitus with hyperglycemia[ICD10: E11.65] Diagnosis: Essential (primary) hypertension[ICD10: I10] Diagnosis: Hypothyroidism, unspecified[ICD10: E03.9] Mila Nicole MD, [facility] CPT-4: 39276 07/17/2015 ([id number]) 12141 EST. PATIENT, LEVEL IV Diagnosis: Essential (primary) hypertension[ICD10: I10] Diagnosis: Type 2 diabetes mellitus with hyperglycemia[ICD10: E11.65] Diagnosis: Headache[ICD10: R51] Gardenia Nicole MD, [facility] CPT-4: 56614 03/25/2015 ([id number]) 24029 EST. PATIENT, LEVEL IV Diagnosis: ESSENTIAL HYPERTENSION[ICD9: 401.9] Diagnosis: DIABETES TYPE II[ICD9: 250.00] Diagnosis: Aortic stenosis[ICD9: 424.1] [facility] CPT- 4: 91398 12/04/2014 ([id number]) OFFICE VISIT, NEW - LEVEL 4 Diagnosis: ESSENTIAL HYPERTENSION[ICD9: 401.9] Diagnosis: Diabetes mellitus out of control[ICD9: 250.02] [facility] CPT-4: 84751 08/14/2014 Plan of Care Planned Activity Notes Codes Status Date Appointment: Lab Draw 02/07/2018 Patient Education: Patient [...] current medications. 01/27/2018 Appointment: Claudia Pruitt WPtel: [address] [place], [place] [phone] (15 min) Moderate 01/27/2018 Patient Education: Patient [...] any worse 11/25/2017 Appointment: Claudia Pruitt WPtel: [phone] [phone] [place] (15 min) Moderate 11/25/2017 Patient Education: Patient Medication Summary Completed 11/25/2017 [facility]ment[phone] [place] (15 min) Moderate 10/28/2017 Visit [...] appt. 10/26/2017 Appointment: Claudia Pruitt WPtel: [phone] [phone] [place] (15 min) Moderate 10/26/2017 Patient Education: [...] verbalized understanding of plan. 10/11/2017 [phone] [place] (30 min) Complex 10/11/2017 Patient Education: [...] Completed 09/22/2017 Appointment: Mila Nicole WPtel: [phone] [facility] [place] (15 min) Moderate 09/13/2017 App[facility]ment[phone] (15 min) Moderate 09/07/2017 Visit Plan: Diabetes [...] heart rate is becoming uncontrolled. 07/06/2017 Appointment: Corey Mila WPtel: [phone] [facility] (15 min) Moderate 07/06/2017 Patient Education: Patient Medication Summary Completed 07/06/2017 Appointment: Corey Mila WPtel: [facility] (15 min) Moderate 06/07/2017 Visit Plan: Hypertension [...] less controlled. 06/03/2017 Appointment: Claudia Pruitt WPtel: [facility]0 [phone] (30 min) Complex 06/03/2017 Patient Education: Patient [...] changes in current treatment plan 05/12/2017 App[facility]ment[phone] [facility] (30 min) Complex 05/12/2017 Patient Education: [...] Entresto medication. 04/15/2017 App[facility]ment: [phone] (15 min) Moderate 04/15/2017 Patient Education: [...] units daily. 03/19/2017 Appointment: Mila Nicole WPtel: [phone] [facility] (15 min) Moderate 03/19/2017 Patient Education: Patient Medication Summary Completed 03/19/2017 Appointment: Mila Nicole WPtel: [phone] [facility] (15 min) Moderate 02/24/2017 Visit Plan: Diabetes [...] at HS 02/03/2017 Appointment: Mila Nicole WPtel: [facility] (15 min) Moderate 02/03/2017 Patient [...] acute concerns. 01/07/2017 Appointment: Gardenia Shah WPtel: [facility] (30 min) Complex 01/07/2017 Patient Education: Patient [...] to allow for greater blood glucose control. [id number], 02/2018 junior nordisk 12/17/2016 Appointment: Mila Nicole WPtel: [phone] [facility] (15 min) Moderate 12/17/2016 Patient Education: Patient Medication Summary Completed 12/17/2016 Patient Education: Obesity Completed 12/17/2016 Appointment: Mila Nicole WPtel: [facility] (15 min) Moderate 12/14/2016 Visit Plan: Diabetes [...] home. 06/18/2016 App[facility]ment: [phone] (15 min) Moderate 06/18/2016 Patient Education: [...] at home. 04/16/2016 Appointment: [phone] [facility] [place] (15 min) Moderate 04/16/2016 Patient [...] with gabapentin 03/19/2016 Appointment: [facility] [phone] [facility] [place] (15 min) Moderate 03/19/2016 Patient [...] at home. 11/14/2015 Appointment: [facility]el[phone] [facility] [place] (15 min) Moderate 11/14/2015 Patient [...] check Hgba1c 07/17/2015 Appointment: Mila Nicole WPtel: [facility] (15 min) Moderate 07/17/2015 Patient Education: [...] Completed 03/25/2015 Appointment: [facility]el[facility] [phone] [facility] (15 min) Moderate 01/14/2015 Visit Plan: [...] control. 12/04/2014 Appointment: [facility]el[facility] [phone] [facility] (15 min) Moderate 12/04/2014 Patient Education: [...] glucose control. 08/14/2014 Appointment: [facility]el[facility] [phone] [facility] [place] (S) New Patient 08/14/2014 Patient [...] to allow for greater blood glucose control. [id number], 02/2018 junior nordisk . Hypertension - well [...]
--- OUTSIDE RECORDS SUMMARY | 2018-03-30 10:51 | XMS REPORT | CCD ---
Author Author [facility] Organization [facility] Address [address] [place] [address] Phone Care Team Providers Care [employer] Name Role Phone PP Unavailable CCM Unavailable Summary Purpose Interface Exchange Insurance Providers Payer name Policy type / Coverage type Covered republican ID Effective Begin Date Effective End Date WPS Medicare Part B Medicare Part B [id number] Unknown AARP Medicare Part B [id number] Unknown Family history Mother Diagnosis Age At [...] Unknown 3 08/14/[address]: 709584124 Never smoker 08/14/[address]: 281667125 Never drinks alcohol 08/14/2014 Allergies, Adverse Reactions, Alerts Substance Reaction Codes Entered Date Inactivated Date Status * OTHER REACTION - SEE ANSWER BOX Invokana, Victoza Unknown 07/2017 No Inactive Date Active Paxil has blurred vision RxNorm: 000349 08/14/2014 No Inactive Date Active Lipitor RxNorm: 61922 08/14/2014 No Inactive Date Active Past Medical [...] Fill Instructions Keflex 500 mg capsule RxNorm: 257243 1 Capsule(s) PO TID 201702/20/2018 Active Keflex 500 mg capsule RxNorm: 785993 1 Capsule(s) PO TID 201702/10/2018 Inactive metoprolol succinate ER 200 mg tablet,extended release 24 hr RxNorm: 297249 1 Tablet(s) PO daily 01/27/2018 No Stop Date Active Eliquis 2.5 mg tablet RxNorm: 1164553 1 Tablet(s) PO BID 2017 No Stop Date Active digoxin 125 mcg tablet RxNorm: 319676 1 Tablet(s) PO daily No Stop Date Active Basaglar KwikPen U-100 Insulin 100 unit/mL (3 mL) subcutaneous RxNorm: 8223578 20 Unit(s) SQ daily 11/25/201705/23 Active UPDATE RX metformin 500 mg tablet RxNorm: 849714 1 Tablet(s) PO UD 1.5 in morning, noon and 1 at bedtime 10/28/2017 10/22/2018 Active Basaglar KwikPen U-100 Insulin 100 unit/mL (3 mL) subcutaneous RxNorm: 8961660 18 Unit(s) SQ daily 10/26/201711/24 Inactive UPDATE RX levothyroxine 50 mcg tablet RxNorm: 067013 TAKE 1 TABLET BY MOUTH ONCE DAILY 10/15/2017 06/11/2018 Active Generic For:SYNTHROID 50MCG TAB 10/15/2017 9:59:00 AM escitalopram 10 mg tablet RxNorm: 703497 1 Tablet(s) PO QPM 01/201809/16/2018 Active Generic For:LEXAPRO 5MG 01/07/2017 9:05:43 AM Basaglar KwikPen U-100 Insulin 100 unit/mL (3 mL) subcutaneous RxNorm: 2362689 15 Unit(s) SQ daily 09/22/201710/25 Inactive potassium chloride ER 20 mEq tablet,extended release RxNorm: 562027 1 Tablet(s) PO daily 06/22/2017 01/17/2018 Inactive Lantus Solostar U-100 Insulin 100 unit/mL (3 mL) subcutaneous pen RxNorm: 440872 10 Unit(s) SQ daily 06/08/2017 Inactive Basaglar KwikPen U-100 Insulin 100 unit/mL (3 mL) subcutaneous RxNorm: 6042891 10 Unit(s) SQ daily 06/08/201706/07 Inactive Basaglar KwikPen U-100 Insulin 100 unit/mL (3 mL) subcutaneous RxNorm: 8302857 10 Unit(s) SQ daily 06/08/201709/21 Inactive Lexapro 5 mg tablet RxNorm: 938419 1 Tablet(s) PO daily 201711/27/2017 Inactive Lexapro 5 mg tablet RxNorm: 596314 1 Tablet(s) PO daily 201705/31/2017 Inactive bisoprolol 5 mg-hydrochlorothiazide 6.25 mg tablet RxNorm: 626609 1 Tablet(s) PO BID 05/04/2017 06/02/2017 Inactive Keflex 500 mg capsule RxNorm: 999292 1 Capsule(s) PO QID 201704/21/2017 Inactive Lantus Solostar 100 unit/mL (3 mL) subcutaneous insulin pen RxNorm: 315115 10 Unit(s) SQ daily 02/03/2017 06/07/2017 Inactive levothyroxine 50 mcg tablet RxNorm: 186820 TAKE 1 TABLET BY MOUTH ONCE DAILY 02/01/2017 09/28/2017 Inactive Generic For:SYNTHROID 50MCG TAB 02/01/2017 9:20:59 AM gabapentin 600 mg tablet RxNorm: 512530 1 Capsule(s) PO TID 01/21/2018 Inactive Lexapro 5 mg tablet RxNorm: 854533 TAKE 1 TABLET BY MOUTH AT BEDTIME 01/07/2017 09/21/2017 Inactive Generic For:LEXAPRO 5MG 01/07/2017 9:05:43 AM Victoza 2-Dariusz 0.6 mg/0.1 mL (18 mg/3 mL) subcutaneous pen injector RxNorm: 587343 1.8 Milligram(s) SQ daily 12/17/201602/07 Inactive Victoza 3-Dariusz 0.6 mg/0.1 mL (18 mg/3 mL) subcutaneous pen injector RxNorm: 628196 Milligram(s) SQ 12/17/2016 02/07/2017 Inactive Zetia 10 mg tablet RxNorm: 946489 1 Tablet(s) PO daily 201611/11/2017 Inactive fluticasone 50 mcg/actuation nasal spray,suspension RxNorm: 5214968 [place] NASAL ONE SPRAY IN EACH NOSTRIL TWICE DAILY 09/28/2016 04/25/2017 Inactive Victoza 2-Dariusz 0.6 mg/0.1 mL (18 mg/3 mL) subcutaneous pen injector RxNorm: 647393 1.2 Milligram(s) SQ daily 09/14/201612/16 Inactive Lexapro 5 mg tablet RxNorm: 942392 1 Tablet(s) PO QHS 201612/12/2016 Inactive metformin 500 mg tablet RxNorm: 529132 1 Tablet(s) PO UD 1.5 in morning, noon and 1 at bedtime 09/08/2016 09/02/2017 Inactive glimepiride 4 mg tablet RxNorm: 003268 TAKE 1 TABLET BY MOUTH ONCE DAILY 07/31/2016 09/13/2016 Inactive Generic For:*AMARYL 4MG 07/31/2016 9:02:38 AM Victoza 2-Dariusz 0.6 mg/0.1 mL (18 mg/3 mL) subcutaneous pen injector RxNorm: 822085 1.2 Milligram(s) SQ daily 05/18/201609/13 Inactive Victoza 2-Dariusz 0.6 mg/0.1 mL (18 mg/3 mL) subcutaneous pen injector RxNorm: 239834 1.2 Milligram(s) SQ daily 04/16/201605/17 Inactive levothyroxine 50 mcg tablet RxNorm: 310699 TAKE 1 TABLET BY MOUTH ONCE DAILY 04/08/2016 12/03/2016 Inactive Generic For:SYNTHROID 50MCG TAB 04/08/2016 9:05:40 AM levothyroxine 50 mcg tablet RxNorm: 118939 1 Tablet(s) PO daily TAKE 1 TABLET BY MOUTH ONCE DAILY 04/08/2016 12/03/2016 Inactive Generic For:SYNTHROID 50MCG TAB N O T I C E PRESCRIPTION PREVIOUSLY AUTHORIZED BY DOCTOR:HENRY BAIG bisoprolol 5 mg-hydrochlorothiazide 6.25 mg tablet RxNorm: 557025 1 Tablet(s) PO BID 03/23/2016 03/17/2017 Inactive Victoza 2-Dariusz 0.6 mg/0.1 mL (18 mg/3 mL) subcutaneous pen injector RxNorm: 499048 0.6 Milligram(s) SQ daily 03/19/201604/15 Inactive Lexapro 5 mg tablet RxNorm: 974454 1 Tablet(s) PO QHS 201606/16/2016 Inactive gabapentin 600 mg tablet RxNorm: 018288 1 Capsule(s) PO TID 07/201601/26/2017 Inactive glimepiride 4 mg tablet RxNorm: 581744 1 Tablet(s) PO daily 06/05/2016 Inactive Victoza 3-Dariusz 0.6 mg/0.1 mL (18 mg/3 mL) subcutaneous pen injector RxNorm: 783982 0.6 Milligram(s) SQ daily x2 weeks, then 1.2 mg SQ daily 03/18/2016 Inactive metformin 500 mg tablet RxNorm: 963652 1 Tablet(s) PO UD 1.5 in morning, noon and 1 at bedtime 08/14/2015 08/07/2016 Inactive gabapentin 600 mg tablet RxNorm: 911320 1 Capsule(s) PO TID SHE IS ONLY TAKING 1 QD 08/14/2015 03/18/2016 Inactive fluticasone 50 mcg/actuation nasal spray,suspension RxNorm: 307839 [place] NASAL ONE SPRAY IN EACH NOSTRIL TWICE DAILY 07/26/2015 07/25/2015 Inactive fluticasone 50 mcg/actuation nasal spray,suspension RxNorm: 2119735 [place] NASAL ONE SPRAY IN EACH NOSTRIL TWICE DAILY 07/26/2015 02/20/2016 Inactive bisoprolol 5 mg-hydrochlorothiazide 6.25 mg tablet RxNorm: 817987 1 Tablet(s) PO daily 1 Tablet(s) PO BID 07/17/20152015 Inactive metformin 500 mg tablet RxNorm: 225886 1 Tablet(s) PO TID 1 Tablet(s) PO TID 07/17/2015 08/13/2015 Inactive Diflucan 100 mg tablet RxNorm: 296483 1 Tablet(s) PO daily 06/201507/21/2015 Inactive Zetia 10 mg tablet RxNorm: 410705 1 Tablet(s) PO daily 201506/03/2016 Inactive bisoprolol 5 mg-hydrochlorothiazide 6.25 mg tablet RxNorm: 919455 1 Tablet(s) PO BID 04/18/2015 07/16/2015 Inactive metformin 500 mg tablet RxNorm: 945930 1 Tablet(s) PO TID 03/0106/28/2015 Inactive glimepiride 4 mg tablet RxNorm: 194638 1 Tablet(s) PO daily 01/30/2015 Inactive levothyroxine 50 mcg tablet RxNorm: 715207 TAKE 1 TABLET BY MOUTH ONCE DAILY 01/31/2015 09/27/2015 Inactive Generic For:SYNTHROID 50MCG TAB N O T I C E PRESCRIPTION PREVIOUSLY AUTHORIZED BY DOCTOR:HENRY BAIG glimepiride 4 mg tablet RxNorm: 500901 1 Tablet(s) PO daily 07/29/2015 Inactive Invokana 100 mg tablet RxNorm: 6752079 1 Tablet(s) PO daily 07/16/2015 Inactive bisoprolol 5 mg-hydrochlorothiazide 6.25 mg tablet RxNorm: 338179 1 Tablet(s) PO BID 08/27/2014 02/22/2015 Inactive metformin 500 mg tablet RxNorm: 545639 1 Tablet(s) PO TID 08/1012/07/2014 Inactive metformin 500 mg tablet RxNorm: 481547 1 Tablet(s) PO TID 08/1008/09/2014 Inactive Fish Oil 1,000 mg capsule RxNorm: 1 Capsule(s) PO daily No Start Date Active Protonix 40 mg tablet,delayed release RxNorm: 596845 1 Tablet(s) PO QAM No Start Date Active furosemide 40 mg tablet RxNorm: 463490 1 Tablet(s) PO daily No Start Date Active pen needle, diabetic 31 gauge x 1/6" RxNorm: Miscellaneous No Start Date Active nitroglycerin 0.4 mg sublingual tablet RxNorm: 824955 1 Tablet(s) SL as needed chest pain No Start Date Active amlodipine 5 mg tablet RxNorm: 481936 1 Tablet(s) PO daily No Start Date Active Entresto 24 mg-26 mg tablet RxNorm: 3268423 1 Tablet(s) PO BID No Start Date Active aspirin 81 mg chewable tablet RxNorm: 421727 1 Tablet(s) PO daily No Start Date 06/02/2017 Inactive Eliquis 5 mg tablet RxNorm: 0485741 1 Tablet(s) PO BID No Start Date 01/26/2018 Inactive bisoprolol-hydrochlorothiazide oral RxNorm: 96946 oral No Start Date 08/26/2014 Inactive levothyroxine 50 mcg tablet RxNorm: 024097 1 Tablet(s) PO daily No Start Date 01/30/2015 Inactive potassium chloride ER 20 mEq tablet,extended release RxNorm: 075874 1 Tablet(s) PO daily No Start Date 06/21/2017 Inactive digoxin 250 mcg tablet RxNorm: 430260 1 Tablet(s) PO daily No Start Date 01/26/2018 Inactive Invokana 100 mg tablet RxNorm: 1914809 1 Tablet(s) PO daily No Start Date 12/11/2014 Inactive Victoza 3-Dariusz 0.6 mg/0.1 mL (18 mg/3 mL) subcutaneous pen injector RxNorm: 294348 0.6 Milligram(s) SQ daily x2 weeks, then 1.2 mg SQ daily No Start Date 12/01/2015 Inactive Effient 10 mg tablet RxNorm: 693453 1 Tablet(s) PO QAM No Start Date 01/26/2018 Inactive Zetia 10 mg tablet RxNorm: 114510 1 Tablet(s) PO BID No Start Date 03/18/2016 Inactive metoprolol succinate ER 100 mg tablet,extended release 24 hr RxNorm: 416315 1 Tablet(s) PO daily No Start Date 2017 Inactive gabapentin 300 mg capsule RxNorm: 031398 1 Capsule(s) PO BID No Start Date 08/13/2015 Inactive Lasix 40 mg tablet RxNorm: 952942 1 Tablet(s) PO BID No Start Date 04/14/2017 Inactive Coreg 3.125 mg tablet RxNorm: 351615 1 Tablet(s) PO BID with meals No [...] 04/15/2017 stress test and then shipped to [facility] Follow Up 03/19/2017 stress test and then shipped to [facility] diabetes mellitus 02/03/2017 headache 01/07/2017 diabetes mellitus 12/17/2016 diabetes mellitus 09/14/2016 diabetes mellitus 06/18/2016 medication follow up 04/16/2016 back pain 03/19/2016 back pain 11/14/2015 back pain 08/14/2015 diabetes mellitus 07/17/2015 Hospital Follow Up 03/25/2015 diabetes mellitus 12/04/2014 diabetes mellitus 08/14/2014 Results Observation Observation Code Item Item Code Result Date Urine Culture Ucult Complete >100,000 col/ml aerobic growth sent to ref lab 02/08/2018 %Hba1C Ugy914 % HbA1c 62342-9 6.8 % 01/12/2018 %Hba1C Ota579 Gluc Ave 148 mg/dL 01/12/2018 Metabolic Ord15 [...] 28.6 pg 01/11/2018 Cbc With Differential Ord2 [place]% 7.8 % 01/11/2018 Cbc With Differential Ord2 [...] 1.70 K/ul 01/11/2018 Cbc With Differential Ord2 [place] ABS# 0.4 K/ul 01/11/2018 Cbc With Differential Ord2 Eos ABS# 0.1 K/ul 01/11/2018 Cbc With Differential Ord2 Baso ABS# 0.0 K/ul 01/11/2018 Magnesium Ord90 Mag 1.7 mg/dL 01/11/2018 Test(s) Not Perfromed IIA0044 Test(s) Not Performed Test(s) Not Performed. See Below: 09/20/2017 Test(s) Not Perfromed [id number] TEST NAME BNP 09/20/2017 Test(s) Not Perfromed [id number] Rejection Reason Patient Refused due to lack of coving diganosis 09/20/2017 Test(s) Not Perfromed EQC0279 COMMENT Dorita Notified 09/20 Test(s) Not Perfromed [id number] Pillow Filler Miguel Mclaughlin 2017 B Type Natriuretic Peptide Vcl7846 B-PLATE GRAINER 889.00 pg/ml 2017 Cbc With Differential Ord2 [...] 28.9 pg 09/20/2017 Cbc With Differential Ord2 [place]% 5.6 % 09/20/2017 Cbc With Differential Ord2 [...] 1.68 K/ul 09/20/2017 Cbc With Differential Ord2 [place] ABS# 0.3 K/ul 09/20/2017 Cbc With Differential Ord2 Eos ABS# 0.1 K/ul 09/20/2017 Cbc With Differential Ord2 Baso ABS# 0.0 K/ul 09/20/2017 %Hba1C Yfi551 % HbA1c 50572-1 7.9 % 09/20/2017 %Hba1C Hfk933 Gluc Ave 180 mg/dL 09/20/2017 Magnesium Ord90 [...] 88.5 fl 07/07/2017 Cbc With Differential Ord2 [place]% 7.9 % 07/07/2017 Cbc With Differential Ord2 MCH 28.3 pg 07/07/2017 Cbc With Differential Ord2 Eos% 2.2 % 07/07/2017 Cbc With Differential Ord2 MCHC 31.9 pg 07/07/2017 Cbc With Differential Ord2 Baso% 0.7 % 07/07/2017 Cbc With Differential Ord2 PLT 278 K/ul 07/07/2017 Cbc With Differential Ord2 RDW 15.7 % 07/07/2017 Cbc With Differential Ord2 Neut ABS# 2.70 K/ul 07/07/2017 Cbc With Differential Ord2 Lymph ABS# 1.34 K/ul 07/07/2017 Cbc With Differential Ord2 [place] ABS# 0.4 K/ul 07/07/2017 Cbc With Differential Ord2 Eos ABS# 0.1 K/ul 07/07/2017 Cbc With Differential Ord2 Baso ABS# 0.0 K/ul 07/07/2017 Comp Metabolic Oyg124 NA 142 mEq/L 07/07/2017 Comp Metabolic Fhn276 K 4.3 mEq/L 07/07/2017 Comp Metabolic Yim511 CL 105 mEq/L 07/07/2017 Comp Metabolic Oto757 CO2 28.0 mEq/L 07/07/2017 Comp Metabolic Ctb155 ANION GAP 13 07/07/2017 Comp Metabolic Dib568 GLUCOSE 197 mg/dL 07/07/2017 Comp Metabolic Hzh274 Creat 1.1 mg/dL 07/07/2017 Comp Metabolic Bcv055 eGFR 51 ml/min/1.73m2 07/07/2017 Comp Metabolic Hyn637 BUN 21 mg/dL 07/07/2017 Comp Metabolic Apj109 B/C Ratio 18.9 Ratio 07/07/2017 Comp Metabolic Uqt615 CALCIUM 8.9 mg/dL 07/07/2017 Comp Metabolic Uly810 ALK PHOS 51 U/L 07/07/2017 Comp Metabolic Tkb592 AST(SGOT) 11 U/L 07/07/2017 Comp Metabolic Vmv448 ALT(SGPT) 11 U/L 07/07/2017 Comp Metabolic Hli746 BILI T 0.3 mg/dL 07/07/2017 Comp Metabolic Ehn121 ALBUMIN 4.2 g/dL 07/07/2017 Comp Metabolic Tah118 TPRO 6.0 g/dL 07/07/2017 Comp Metabolic Lrq910 GLOB 1.8 g/dL 07/07/2017 Comp Metabolic Vye114 A/G Ratio 2.3 Ratio 07/07/2017 Comp Metabolic Lzw855 Osmo 292 mOsmo 07/07/2017 Digoxin Ord9 DIGOXIN 1.3 NG/ML 07/07/2017 Tsh Ord6 TSH (3rd IS) 2.19 uIU/mL 07/07/2017 B Type Natriuretic Peptide Bmp9774 B-PLATE GRAINER 801.00 pg/ml 2017 Culture Urine [id number] URINE CULTURE SEE NOTES 04/19/2017 Culture Urine [id number] Continued Results 04/19/2017 Urine Culture Ucult Complete >100,000 col/ml aerobic growth sent to ref lab 04/16/2017 Comp Metabolic Lgr950 NA 140 mEq/L 01/26/2017 Comp Metabolic Wvj318 K 4.6 mEq/L 01/26/2017 Comp Metabolic Dag133 CL 102 mEq/L 01/26/2017 Comp Metabolic Lqg113 CO2 28.0 mEq/L 01/26/2017 Comp Metabolic Uwi796 ANION GAP 15 01/26/2017 Comp Metabolic Vqk391 GLUCOSE 173 mg/dL 01/26/2017 Comp Metabolic Joc532 Creat 1.0 mg/dL 01/26/2017 Comp Metabolic Ydw635 eGFR 56 ml/min/1.73m2 01/26/2017 Comp Metabolic Zrd680 BUN 23 mg/dL 01/26/2017 Comp Metabolic Aqm583 B/C Ratio 22.5 Ratio 01/26/2017 Comp Metabolic Nwr654 CALCIUM 9.4 mg/dL 01/26/2017 Comp Metabolic Lnw729 ALK PHOS 52 U/L 01/26/2017 Comp Metabolic Eyo433 AST(SGOT) 12 U/L 01/26/2017 Comp Metabolic Kng732 ALT(SGPT) 12 U/L 01/26/2017 Comp Metabolic Gpu340 BILI T 0.5 mg/dL 01/26/2017 Comp Metabolic Pgi930 ALBUMIN 4.4 g/dL 01/26/2017 Comp Metabolic Zum067 TPRO 6.5 g/dL 01/26/2017 Comp Metabolic End683 GLOB 2.1 g/dL 01/26/2017 Comp Metabolic Ngb622 A/G Ratio 2.1 Ratio 01/26/2017 Comp Metabolic Gtq428 Osmo 287 mOsmo 01/26/2017 Cbc With Differential [...] 88.7 fl 01/26/2017 Cbc With Differential Ord2 [place]% 4.9 % 01/26/2017 Cbc With Differential Ord2 [...] 1.75 K/ul 01/26/2017 Cbc With Differential Ord2 [place] ABS# 0.4 K/ul 01/26/2017 Cbc With Differential Ord2 Eos ABS# 0.1 K/ul 01/26/2017 Cbc With Differential Ord2 Baso ABS# 0.0 K/ul 01/26/2017 %Hba1C Hxm907 % HbA1c 83461-7 7.8 % 01/26/2017 %Hba1C App375 Gluc Ave 177 mg/dL 01/26/2017 Lipid Ord30 CHOL 239 mg/dL 01/26/2017 Lipid Ord30 HDL 40.0 mg/dl 01/26/2017 Lipid Ord30 TRIG 325 mg/dL 01/26/2017 Lipid Ord30 LDL 134 mg/dL 01/26/2017 Lipid Ord30 C/HDL 6.0 Ratio 01/26/2017 Free T4 Hev463 FREE T4 0.95 ng/dL 01/26/2017 Tsh Ord6 [...] Metabolic Ord15 CALCIUM 9.0 mg/dL 09/08/2016 %Hba1C Rcd241 % HbA1c 09926-6 7.5 % 09/08/2016 %Hba1C Juc377 Gluc Ave 169 mg/dL 09/08/2016 Tsh Ord6 hTSH II 2.64 uIU/mL 03/13/2016 %Hba1C Olt535 % HbA1c 95681-9 8.2 % 03/13/2016 %Hba1C Hwv179 Gluc Ave 189 mg/dL 03/13/2016 Lipid Ord30 CHOL 233 mg/dL 03/13/2016 Lipid Ord30 HDL 46.0 mg/dl 03/13/2016 Lipid Ord30 TRIG 276 mg/dL 03/13/2016 Lipid Ord30 LDL 132 mg/dL 03/13/2016 Lipid Ord30 C/HDL 5.1 Ratio 03/13/2016 Free T4 Jar158 FREE T4 0.94 ng/dL 03/13/2016 Cbc With [...] 91.4 fl 03/13/2016 Cbc With Differential Ord2 [place]% 6.1 % 03/13/2016 Cbc With Differential Ord2 [...] 1.63 K/ul 03/13/2016 Cbc With Differential Ord2 [place] ABS# 0.3 K/ul 03/13/2016 Cbc With Differential Ord2 Eos ABS# 0.1 K/ul 03/13/2016 Cbc With Differential Ord2 Baso ABS# 0.0 K/ul 03/13/2016 Comp Metabolic Zop500 NA 139 mEq/L 03/13/2016 Comp Metabolic Dod896 K 4.3 mEq/L 03/13/2016 Comp Metabolic Hbi101 CL 103 mEq/L 03/13/2016 Comp Metabolic Ahu272 CO2 28.0 mEq/L 03/13/2016 Comp Metabolic Ags925 ANION GAP 12 03/13/2016 Comp Metabolic Eup410 GLUCOSE 200 mg/dL 03/13/2016 Comp Metabolic Twa765 Creat 0.9 mg/dL 03/13/2016 Comp Metabolic Rzh697 eGFR 69 ml/min/1.73m2 03/13/2016 Comp Metabolic Raf175 BUN 19 mg/dL 03/13/2016 Comp Metabolic Oys277 B/C Ratio 22.4 Ratio 03/13/2016 Comp Metabolic Lki341 CALCIUM 9.0 mg/dL 03/13/2016 Comp Metabolic Sly954 ALK PHOS 57 U/L 03/13/2016 Comp Metabolic Omf205 AST(SGOT) 13 U/L 03/13/2016 Comp Metabolic Bma658 ALT(SGPT) 16 U/L 03/13/2016 Comp Metabolic Zib342 BILI T 0.4 mg/dL 03/13/2016 Comp Metabolic Noz156 ALBUMIN 4.2 g/dL 03/13/2016 Comp Metabolic Xsh811 TPRO 6.3 g/dL 03/13/2016 Comp Metabolic Wqs637 GLOB 2.1 g/dL 03/13/2016 Comp Metabolic Hhv556 A/G Ratio 2.0 Ratio 03/13/2016 Comp Metabolic Mwz042 Osmo 285 mOsmo 03/13/2016 %Hba1C Mqk115 % HbA1c 22654-4 8.3 % 11/14/2015 %Hba1C Zha210 Gluc Ave 192 mg/dL 11/14/2015 Lipid Ord30 CHOL 210 mg/dL 07/19/2015 Lipid Ord30 HDL 43.0 mg/dl 07/19/2015 Lipid Ord30 TRIG 311 mg/dL 07/19/2015 Lipid Ord30 LDL 105 mg/dL 07/19/2015 Lipid Ord30 C/HDL 4.9 Ratio 07/19/2015 %Hba1C Xor579 % HbA1c 92411-4 7.6 % 07/19/2015 %Hba1C Dem926 Gluc Ave 171 mg/dL 07/19/2015 Cbc With [...] 28.8 pg 07/19/2015 Cbc With Differential Ord2 [place]% 6.1 % 07/19/2015 Cbc With Differential Ord2 [...] 1.63 K/ul 07/19/2015 Cbc With Differential Ord2 [place] ABS# 0.3 K/ul 07/19/2015 Cbc With Differential Ord2 Eos ABS# 0.1 K/ul 07/19/2015 Cbc With Differential Ord2 Baso ABS# 0.0 K/ul 07/19/2015 Cbc With Differential Ord2 New Analyzer Notice Please note new ref ranges starting 03-27-2015 due to implemntation of new five part differential hematolgy analyzer. 07/19/2015 Comp Metabolic Tdz684 NA 138 mEq/L 07/19/2015 Comp Metabolic Oro630 K 4.3 mEq/L 07/19/2015 Comp Metabolic Qyn152 CL 100 mEq/L 07/19/2015 Comp Metabolic Nkc412 CO2 33.0 mEq/L 07/19/2015 Comp Metabolic Alj111 ANION GAP 9 07/19/2015 Comp Metabolic Dbu520 GLUCOSE 149 mg/dL 07/19/2015 Comp Metabolic Qgc254 Creat 0.9 mg/dL 07/19/2015 Comp Metabolic Jwt489 eGFR 62 ml/min/1.73m2 07/19/2015 Comp Metabolic Qgd815 BUN 19 mg/dL 07/19/2015 Comp Metabolic Wwr846 B/C Ratio 20.2 Ratio 07/19/2015 Comp Metabolic Ygb047 CALCIUM 9.5 mg/dL 07/19/2015 Comp Metabolic Amq859 ALK PHOS 52 U/L 07/19/2015 Comp Metabolic Bgr937 AST(SGOT) 15 U/L 07/19/2015 Comp Metabolic Bkp188 ALT(SGPT) 14 U/L 07/19/2015 Comp Metabolic Gfv437 BILI T 0.5 mg/dL 07/19/2015 Comp Metabolic Vvr546 ALBUMIN 4.4 g/dL 07/19/2015 Comp Metabolic Rpq241 TPRO 6.4 g/dL 07/19/2015 Comp Metabolic Tju778 GLOB 2.0 g/dL 07/19/2015 Comp Metabolic Rlu422 A/G Ratio 2.2 Ratio 07/19/2015 Comp Metabolic Ter499 Osmo 281 mOsmo 07/19/2015 Free T4 Tuj271 FREE T4 0.92 ng/dL 07/19/2015 Tsh Ord6 hTSH II 1.95 uIU/mL 07/19/2015 Microalbumin Eed270 MicroAlb 0.4 mg/dL 07/19/2015 Comp Metabolic Xnr967 NA 137 mEq/L 12/04/2014 Comp Metabolic Lpm621 K 4.0 mEq/L 12/04/2014 Comp Metabolic Krg463 CL 100 mEq/L 12/04/2014 Comp Metabolic Slr441 CO2 29.0 mEq/L 12/04/2014 Comp Metabolic Afx282 ANION GAP 12 12/04/2014 Comp Metabolic Flo539 GLUCOSE 171 mg/dL 12/04/2014 Comp Metabolic Bfm288 Creat 1.0 mg/dL 12/04/2014 Comp Metabolic Csq833 eGFR 60 ml/min/1.73m2 12/04/2014 Comp Metabolic Ibq465 BUN 25 mg/dL 12/04/2014 Comp Metabolic Opt671 B/C Ratio 25.8 Ratio 12/04/2014 Comp Metabolic Glj564 CALCIUM 9.4 mg/dL 12/04/2014 Comp Metabolic Lsp769 ALK PHOS 60 U/L 12/04/2014 Comp Metabolic Csz716 AST(SGOT) 13 U/L 12/04/2014 Comp Metabolic Vtr349 ALT(SGPT) 17 U/L 12/04/2014 Comp Metabolic Ais878 BILI T 0.4 mg/dL 12/04/2014 Comp Metabolic Jbf818 ALBUMIN 4.4 g/dL 12/04/2014 Comp Metabolic Aqp319 TPRO 6.9 g/dL 12/04/2014 Comp Metabolic Pbc139 GLOB 2.5 g/dL 12/04/2014 Comp Metabolic Ttk248 A/G Ratio 1.8 Ratio 12/04/2014 Comp Metabolic Ldx902 Osmo 282 mOsmo 12/04/2014 Tsh Ord6 hTSH II 1.78 uIU/mL 12/04/2014 %Hba1C Sqw383 % HbA1c 66345-5 8.3 % 12/04/2014 %Hba1C Pfa920 Gluc Ave 192 mg/dL 12/04/2014 Free T4 Xto689 FREE T4 0.85 ng/dL 12/04/2014 Lipid Ord30 [...] Codes Date URINALYSIS NONAUTO W/O SCOPE CPT-4: 28969 02/07/2018 ADMIN INFLUENZA VIRUS VAC CPT-4: G0008 11/25/2017 FLU VAC NO PRSV 4 ANABELLE 3 YRS+ CPT-4: 24411 11/25/2017 GLUC MONITOR CONT PHYS I&R CPT-4: 08271 10/26/2017 GLUCOSE MONITORING CONT CPT-4: 66011 10/11/2017 URINALYSIS NONAUTO W/O SCOPE CPT-4: 87380 04/15/2017 FLU VAC NO PRSV 4 ANABELLE 3 YRS+ CPT-4: 20033 12/17/2016 ADMIN INFLUENZA VIRUS VAC CPT-4: G0008 12/17/2016 FLU VACC PRSV FREE INC ANTIG Formatting Model/CDA Sections, Assigned to/Nery Daniels CPT-4: 67971Yhvfsci 11/14/2015 ADMIN INFLUENZA VIRUS VAC CPT-4: G0008 11/14/2015 ADMIN INFLUENZA VIRUS VAC Formatting Model/CDA Sections, Assigned to/Nery Daniels CPT-4: V4976Hkokfoi 12/04/2014 FLU VACC 4 ANABELLE 3 YRS PLUS IM SNOMED CT: 86037285 CPT-4: 48044 12/04/2014 Vital Signs Date Vital 01/27/2018 Blood Pressure 1: 142/70 Code : 8480-6 BMI: 29.5 Code : 49362-7 Heart Rate 1 : 61 bpm Height: 5' SpO2: 99% Weight: 151 lbs 11/25/2017 Blood Pressure 1: 148/72 Code : 8480-6 BMI: 30.9 Code : 48107-6 Heart Rate 1 : 62 bpm Height: 5' SpO2: 98% Weight: 158 lbs 10/26/2017 Blood Pressure 1: 156/74 Code : 8480-6 BMI: 31.2 Code : 47116-2 Heart Rate 1 : 71 bpm Height: 5' SpO2: 98% Weight: 160 lbs 10/11/2017 Blood Pressure 1: 128/70 Code : 8480-6 BMI: 30.9 Code : 98704-9 Heart Rate 1 : 70 bpm Height: 5' SpO2: 95% Weight: 158 lbs 09/22/2017 Blood Pressure 1: 110/52 Code : 8480-6 BMI: 30.9 Code : 35788-7 Heart Rate 1 : 72 bpm Height: 5' SpO2: 99% Weight: 158 lbs 07/06/2017 Blood Pressure 1: 120/85 Code : 8480-6 BMI: 31.4 Code : 16829-0 Heart Rate 1 : 74 bpm Height: 5' SpO2: 92% Weight: 161 lbs 06/03/2017 Blood Pressure 1: 120/62 Code : 8480-6 BMI: 31.1 Code : 76099-3 Heart Rate 1 : 73 bpm Height: 5' SpO2: 99% Weight: 159 lbs 05/12/2017 Blood Pressure 1: 132/68 Code : 8480-6 BMI: 32.4 Code : 99529-1 Heart Rate 1 : 95 bpm Height: 5' SpO2: 97% Weight: 166 lbs 04/15/2017 Blood Pressure 1: 128/84 Code : 8480-6 BMI: 32.4 Code : 71858-8 Heart Rate 1 : 62 bpm Height: 5' SpO2: 97% Weight: 166 lbs 03/19/2017 Blood Pressure 1: 112/60 Code : 8480-6 BMI: 32.0 Code : 75689-2 Height: 5' Weight: 164 lbs 02/03/2017 Blood Pressure 1: 128/76 Code : 8480-6 BMI: 33.4 Code : 31873-7 Heart Rate 1 : 91 bpm Height: 5' SpO2: 99% Weight: 171 lbs 01/07/2017 Blood Pressure 1: 126/74 Code : 8480-6 BMI: 34.2 Code : 70510-3 Heart Rate 1 : 83 bpm Height: 5' SpO2: 97% Weight: 175 lbs 12/17/2016 Blood Pressure 1: 122/72 Code : 8480-6 BMI: 34.0 Code : 18542-9 Heart Rate 1 : 78 bpm Height: 5' SpO2: 97% Weight: 174 lbs 09/14/2016 Blood Pressure 1: 128/86 Code : 8480-6 BMI: 33.8 Code : 42264-6 Heart Rate 1 : 88 bpm Height: 5' SpO2: 96% Weight: 173 lbs 06/18/2016 Blood Pressure 1: 122/74 Code : 8480-6 BMI: 34.8 Code : 03542-5 Heart Rate 1 : 78 bpm Height: 5' SpO2: 98% Weight: 178 lbs 04/16/2016 Blood Pressure 1: 134/68 Code : 8480-6 BMI: 35.0 Code : 32127-5 Heart Rate 1 : 67 bpm Height: 5' SpO2: 97% Weight: 179 lbs 03/19/2016 Blood Pressure 1: 132/74 Code : 8480-6 BMI: 34.6 Code : 54447-0 Heart Rate 1 : 74 bpm Height: 5' SpO2: 97% Weight: 177 lbs 11/14/2015 Blood Pressure 1: 132/70 Code : 8480-6 BMI: 35.2 Code : 01574-5 Heart Rate 1 : 68 bpm Height: 5' Weight: 180 lbs 08/14/2015 Blood Pressure 1: 122/74 Code : 8480-6 BMI: 33.8 Code : 39459-9 Heart Rate 1 : 73 bpm Height: 5' SpO2: 93% Weight: 173 lbs 07/17/2015 Blood Pressure 1: 138/78 Code : 8480-6 BMI: 34.0 Code : 04762-0 Heart Rate 1 : 85 bpm Height: 5' SpO2: 97% Weight: 174 lbs 03/25/2015 Blood Pressure 1: 130/78 Code : 8480-6 BMI: 33.2 Code : 04827-8 Heart Rate 1 : 77 bpm Height: 5' SpO2: 97% Weight: 170 lbs 12/04/2014 Blood Pressure 1: 120/74 Code : 8480-6 BMI: 35.4 Code : 79374-8 Heart Rate 1 : 67 bpm Height: 5' SpO2: 94% Weight: 181 lbs 5 oz 08/14/2014 Blood Pressure 1: 132/68 Code : 8480-6 BMI: 32.1 Code : 11583-2 Heart Rate 1 : 62 bpm Height: [...] data Encounters Encounter Performer Location Codes Date ([id number]) [id number] EST. PATIENT, LEVEL IV Diagnosis: Type 2 diabetes mellitus with hyperglycemia[ICD10: E11.65] Diagnosis: Essential (primary) hypertension[ICD10: I10] Diagnosis: Major depressive disorder, recurrent, mild[ICD10: F33.0] Diagnosis: Generalized anxiety disorder[ICD10: F41.1] [facility] CPT-4: 49923 01/27/2018 ([id number]) 39466 EST. PATIENT, LEVEL IV Diagnosis: Type 2 diabetes mellitus with hyperglycemia[ICD10: E11.65] Diagnosis: Essential (primary) hypertension[ICD10: I10] Diagnosis: Encounter for immunization[ICD10: Z23] Diagnosis: Carpal tunnel syndrome, left upper limb[ICD10: G56.02] Claudia Nicole MD, [facility] CPT-4: 28728 11/25/2017 ([id number]) 71565 EST. PATIENT, LEVEL III Diagnosis: Type 2 diabetes mellitus with hyperglycemia[ICD10: E11.65] Claudia Nicole MD, [facility] CPT-4: 78678 10/26/2017 ([id number]) Miscellaneous no charge Diagnosis: Type 2 diabetes mellitus with hyperglycemia[ICD10: E11.65] Claudia Nicole MD, [facility] CPT-4: 07808 10/18/2017 ([id number]) 02251 EST. 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 PATIENT, LEVEL IV Diagnosis: Type 2 diabetes mellitus with hyperglycemia[ICD10: E11.65] Diagnosis: Paroxysmal atrial fibrillation[ICD10: I48.0] Diagnosis: Essential (primary) hypertension[ICD10: I10] Mila Nicole MD, [facility] CPT-4: 17118 07/06/2017 ([id number]) 01343 EST. PATIENT, LEVEL IV Diagnosis: Essential (primary) hypertension[ICD10: I10] Diagnosis: Type 2 diabetes mellitus with hyperglycemia[ICD10: E11.65] Diagnosis: Paroxysmal atrial fibrillation[ICD10: I48.0] Claudia Nicole MD, [facility] CPT-4: 26036 06/03/2017 81575 EST. PATIENT, LEVEL III Diagnosis: Generalized anxiety disorder[ICD10: F41.1] Diagnosis: Major depressive disorder, recurrent, moderate[ICD10: F33.1] Diagnosis: Paroxysmal tachycardia, unspecified[ICD10: I47.9] Gardenia Nicole MD, [facility] CPT-4: 11599 05/12/2017 ([id number]) 79525 EST. PATIENT, LEVEL IV Diagnosis: Essential (primary) hypertension[ICD10: I10] Diagnosis: Cough[ICD10: R05] Diagnosis: Dysuria[ICD10: R30.0] Mila Nicole MD [facility] CPT-4: 54250 04/15/2017 ([id number]) 09665 EST. PATIENT, LEVEL IV Diagnosis: Type 2 diabetes mellitus with hyperglycemia[ICD10: E11.65] Diagnosis: Essential (primary) hypertension[ICD10: I10] Mila Nicole MD [facility] CPT-4: 71753 03/19/2017 ([id number]) 04564 EST. PATIENT, LEVEL III Diagnosis: Type 2 diabetes mellitus with hyperglycemia[ICD10: E11.65] Mila Nicole MD [facility] CPT-4: 45609 02/03/2017 80180 EST. PATIENT, LEVEL IV Diagnosis: Generalized anxiety disorder[ICD10: F41.1] Diagnosis: Type 2 diabetes mellitus with hyperglycemia[ICD10: E11.65] Diagnosis: Essential (primary) hypertension[ICD10: I10] Gardenia Nicole MD, [facility] CPT-4: 21673 01/07/2017 ([id number]) 84778 EST. PATIENT, LEVEL III Diagnosis: Type 2 diabetes mellitus with hyperglycemia[ICD10: E11.65] Diagnosis: Encounter for immunization[ICD10: Z23] Mila Nicole MD [facility] CPT-4: 72644 12/17/2016 ([id number]) 61384 EST. PATIENT, LEVEL IV Diagnosis: Type 2 diabetes mellitus with hyperglycemia[ICD10: E11.65] Diagnosis: Essential (primary) hypertension[ICD10: I10] Diagnosis: Major depressive disorder, recurrent, mild[ICD10: F33.0] Mila Nicole MD, [facility] CPT-4: 38767 09/14/2016 ([id number]) 26214 EST. 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 PATIENT, LEVEL IV Diagnosis: Type 2 diabetes mellitus with hyperglycemia[ICD10: E11.65] Diagnosis: Essential (primary) hypertension[ICD10: I10] Mila Nicole MD, [facility] CPT-4: 99350 04/16/2016 ([id number]) 86495 EST. 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 PATIENT, LEVEL IV Diagnosis: Type 2 diabetes mellitus with hyperglycemia[ICD10: E11.65] Diagnosis: Encounter for immunization[ICD10: Z23] Diagnosis: Essential (primary) hypertension[ICD10: I10] Mila Nicole MD, [facility] CPT-4: 28468 11/14/2015 ([id number]) 42450 EST. PATIENT, LEVEL IV Diagnosis: Type 2 diabetes mellitus with hyperglycemia[ICD10: E11.65] Diagnosis: Essential (primary) hypertension[ICD10: I10] Diagnosis: Low back pain[ICD10: M54.5] iMla Nicole MD, [facility] CPT- 4: 90038 08/14/2015 ([id number]) 08820 EST. PATIENT, LEVEL IV Diagnosis: Type 2 diabetes mellitus with hyperglycemia[ICD10: E11.65] Diagnosis: Essential (primary) hypertension[ICD10: I10] Diagnosis: Hypothyroidism, unspecified[ICD10: E03.9] Mila Nicole MD [facility] CPT-4: 55887 07/17/2015 ([id number]) 27596 EST. PATIENT, LEVEL IV Diagnosis: Essential (primary) hypertension[ICD10: I10] Diagnosis: Type 2 diabetes mellitus with hyperglycemia[ICD10: E11.65] Diagnosis: Headache[ICD10: R51] Gardenia Nicole MD, [facility] CPT-4: 28850 03/25/2015 ([id number]) 52609 EST. PATIENT, LEVEL IV Diagnosis: ESSENTIAL HYPERTENSION[ICD9: 401.9] Diagnosis: DIABETES TYPE II[ICD9: 250.00] Diagnosis: Aortic stenosis[ICD9: 424.1] [facility] CPT- 4: 51247 12/04/2014 ([id number]) OFFICE VISIT, NEW - LEVEL 4 Diagnosis: ESSENTIAL HYPERTENSION[ICD9: 401.9] Diagnosis: Diabetes mellitus out of control[ICD9: 250.02] [facility] CPT-4: 48481 08/14/2014 Plan of Care Planned Activity Notes [...] current medications. 01/27/2018 Appointment: Claudia Pruitt WPtel: [address] [place], [place] [phone] (15 min) Moderate 01/27/2018 Patient Education: Patient [...] worse 11/25/2017 Appointment: Claudia Pruitt WPtel: [phone] [phone] (15 min) Moderate 11/25/2017 Patient Education: Patient Medication Summary Completed 11/25/2017 Appointment: Mila Nicole WPtel: [facility] [place] (15 min) Moderate 10/28/2017 Visit Plan: [...] to appt. 10/26/2017 Appointment: Claudia Pruitt WPtel: [facility]6 [phone] (15 min) Moderate 10/26/2017 Patient Education: Patient [...] plan. 10/11/2017 Appointment: Claudia Pruitt WPtel: [phone] [phone] [place] (30 min) Complex 10/11/2017 Patient Education: [...] Completed 09/22/2017 Appointment: [facility] Nicole [phone] [place] [facility] [place] [place] (15 min) Moderate 09/13/2017 Appointment: Mil[facility] Nicole WPtel: [phone] [place] [facility] [place] (15 min) Moderate 09/07/2017 Visit Plan: Diabetes [...] becoming uncontrolled. 07/06/2017 Appointment: Mila Nicole WPtel: [facility]5 [facility] (15 min) Moderate 07/06/2017 Patient Education: Patient Medication Summary Completed 07/06/2017 Appointment: Mila Nicole WPtel: [facility]5 [facility] (15 min) Moderate 06/07/2017 Visit Plan: [...] less controlled. 06/03/2017 Appointment: Claudia Pruitt WPtel: [facility]5 [phone] (30 min) Complex 06/03/2017 Patient Education: Patient [...] plan 05/12/2017 Appointment: [phone] [place] (30 min) Complex 05/12/2017 Patient Education: Patient [...] Entresto medication. 04/15/2017 Appointment: Mila Nicole WPtel: [phone] [place] [facility] [place] (15 min) Moderate 04/15/2017 Patient Education: Patient [...] units daily. 03/19/2017 Appointment: Mila Nicole WPtel: [phone] [facility] (15 min) Moderate 03/19/2017 Patient Education: Patient Medication Summary Completed 03/19/2017 Appointment: Mila Nicole WPtel: [phone] [facility] (15 min) Moderate 02/24/2017 Visit Plan: [...] HS 02/03/2017 Appointment: Mila Nicole WPtel: [phone] [facility] (15 min) Moderate 02/03/2017 Patient Education: [...] concerns. 01/07/2017 Appointment: Gardenia Shah [phone] [place] (30 min) Complex 01/07/2017 Patient Education: Patient [...] to allow for greater blood glucose control. [id number], 02/2018 junior nordisk 12/17/2016 Appointment: Mila Nicole WPtel[phone] [place] [facility] [place] (15 min) Moderate 12/17/2016 Patient Education: Patient Medication Summary Completed 12/17/2016 Patient Education: Obesity Completed 12/17/2016 Appointment: Mila Nicole WPtel: [phone] [place] [facility] [place] (15 min) Moderate 12/14/2016 Visit Plan: Diabetes [...] medications. 09/14/2016 Appointment: Mila Nicole WPtel: [phone] [facility] (15 min) Moderate 09/14/2016 Patient Education: [...] home. 06/18/2016 Appointment: Mila Nicole WPtel: [phone] [facility] (15 min) Moderate 06/18/2016 Patient Education: [...] at home. 04/16/2016 Appointment: Mila Nicole WPtel: [phone] [place] [facility] [place] [place] (15 min) Moderate 04/16/2016 Patient Education: [...] gabapentin 03/19/2016 Appointment: Mila Nicole WPtel: [phone] [facility] [place] [facility] [place] (15 min) Moderate 03/19/2016 Patient Education: Patient [...] home. 11/14/2015 Appointment: Mila Nicole WPtel: [phone] [facility] [place] [facility] [place] [place] (15 min) Moderate 11/14/2015 Patient Education: [...] check Hgba1c 07/17/2015 Appointment: Mila Nicole WPtel: [address] [place], [place] [address] (15 min) Moderate 07/17/2015 Patient Education: Patient [...] Hypertension Completed 03/25/2015 Appointment: Mila Nicole WPtel: [facility] [place] [facility] [place] (15 min) Moderate 01/14/2015 Visit Plan: Diabetes [...] of control. 12/04/2014 Appointment: Mila Nicole WPtel: [phone] [facility] [place] (15 min) Moderate 12/04/2014 Patient Education: Patient [...] glucose control. 08/14/2014 Appointment: Mila Nicole WPtel: [phone] [facility] [place] [place] ([place] New Patient 08/14/2014 Patient Education: [...] to allow for greater blood glucose control. [id number], 02/2018 junior nordisk . Hypertension - well [...]
--- OUTSIDE RECORDS SUMMARY | 2018-03-30 10:54 | XMS REPORT | CCD ---
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 Role Phone PP Unavailable CCM Unavailable Summary Purpose Interface Exchange Insurance Providers Payer name Policy type / Coverage type Covered constitution party ID Effective Begin Date Effective End Date WPS Medicare Part B Medicare Part B [id number] Unknown AARP Medicare Part B [id number] Unknown Family history Mother Diagnosis Age At [...] Unknown 3 08/14/[address]: 345317681 Never smoker 08/14/[address]: 063966877 Never drinks alcohol 08/14/2014 Allergies, Adverse Reactions, Alerts Substance Reaction Codes Entered Date Inactivated Date Status * OTHER REACTION - SEE ANSWER BOX Invokana, Victoza Unknown 07/2017 No Inactive Date Active Paxil has blurred vision RxNorm: 798196 08/14/2014 No Inactive Date Active Lipitor RxNorm: 37126 08/14/2014 No Inactive Date Active Past Medical [...] Start Date Stop Date Status Fill Instructions metoprolol succinate ER 200 mg tablet,extended release 24 hr RxNorm: 969706 1 Tablet(s) PO daily 01/27/2018 No Stop Date Active Eliquis 2.5 mg tablet RxNorm: 8010275 1 Tablet(s) PO BID 2017 No Stop Date Active digoxin 125 mcg tablet RxNorm: 600768 1 Tablet(s) PO daily No Stop Date Active Basaglar KwikPen U-100 Insulin 100 unit/mL (3 mL) subcutaneous RxNorm: 8977463 20 Unit(s) SQ daily 11/25/201705/23 Active UPDATE RX metformin 500 mg tablet RxNorm: 340384 1 Tablet(s) PO UD 1.5 in morning, noon and 1 at bedtime 10/28/2017 10/22/2018 Active Basaglar KwikPen U-100 Insulin 100 unit/mL (3 mL) subcutaneous RxNorm: 6201449 18 Unit(s) SQ daily 10/26/201711/24 Inactive UPDATE RX levothyroxine 50 mcg tablet RxNorm: 957087 TAKE 1 TABLET BY MOUTH ONCE DAILY 10/15/2017 06/11/2018 Active Generic For:SYNTHROID 50MCG TAB 10/15/2017 9:59:00 AM escitalopram 10 mg tablet RxNorm: 790855 1 Tablet(s) PO QPM 01/201809/16/2018 Active Generic For:LEXAPRO 5MG 01/07/2017 9:05:43 AM Basaglar KwikPen U-100 Insulin 100 unit/mL (3 mL) subcutaneous RxNorm: 9355931 15 Unit(s) SQ daily 09/22/201710/25 Inactive potassium chloride ER 20 mEq tablet,extended release RxNorm: 466662 1 Tablet(s) PO daily 06/22/2017 01/17/2018 Inactive Lantus Solostar U-100 Insulin 100 unit/mL (3 mL) subcutaneous pen RxNorm: 770043 10 Unit(s) SQ daily 06/08/2017 Inactive Basaglar KwikPen U-100 Insulin 100 unit/mL (3 mL) subcutaneous RxNorm: 4216776 10 Unit(s) SQ daily 06/08/201706/07 Inactive Basaglar KwikPen U-100 Insulin 100 unit/mL (3 mL) subcutaneous RxNorm: 0477183 10 Unit(s) SQ daily 06/08/201709/21 Inactive Lexapro 5 mg tablet RxNorm: 879383 1 Tablet(s) PO daily 201711/27/2017 Inactive Lexapro 5 mg tablet RxNorm: 947172 1 Tablet(s) PO daily 201705/31/2017 Inactive bisoprolol 5 mg-hydrochlorothiazide 6.25 mg tablet RxNorm: 708750 1 Tablet(s) PO BID 05/04/2017 06/02/2017 Inactive Keflex 500 mg capsule RxNorm: 486134 1 Capsule(s) PO QID 201704/21/2017 Inactive Lantus Solostar 100 unit/mL (3 mL) subcutaneous insulin pen RxNorm: 353228 10 Unit(s) SQ daily 02/03/2017 06/07/2017 Inactive levothyroxine 50 mcg tablet RxNorm: 614773 TAKE 1 TABLET BY MOUTH ONCE DAILY 02/01/2017 09/28/2017 Inactive Generic For:SYNTHROID 50MCG TAB 02/01/2017 9:20:59 AM gabapentin 600 mg tablet RxNorm: 593602 1 Capsule(s) PO TID 01/21/2018 Inactive Lexapro 5 mg tablet RxNorm: 493727 TAKE 1 TABLET BY MOUTH AT BEDTIME 01/07/2017 09/21/2017 Inactive Generic For:LEXAPRO 5MG 01/07/2017 9:05:43 AM Victoza 2-Dariusz 0.6 mg/0.1 mL (18 mg/3 mL) subcutaneous pen injector RxNorm: 199883 1.8 Milligram(s) SQ daily 12/17/201602/07 Inactive Victoza 3-Dariusz 0.6 mg/0.1 mL (18 mg/3 mL) subcutaneous pen injector RxNorm: 922921 Milligram(s) SQ 12/17/2016 02/07/2017 Inactive Zetia 10 mg tablet RxNorm: 204769 1 Tablet(s) PO daily 201611/11/2017 Inactive fluticasone 50 mcg/actuation nasal spray,suspension RxNorm: 1031813 [place] NASAL ONE SPRAY IN EACH NOSTRIL TWICE DAILY 09/28/2016 04/25/2017 Inactive Victoza 2-Dariusz 0.6 mg/0.1 mL (18 mg/3 mL) subcutaneous pen injector RxNorm: 068525 1.2 Milligram(s) SQ daily 09/14/201612/16 Inactive Lexapro 5 mg tablet RxNorm: 419052 1 Tablet(s) PO QHS 201612/12/2016 Inactive metformin 500 mg tablet RxNorm: 673604 1 Tablet(s) PO UD 1.5 in morning, noon and 1 at bedtime 09/08/2016 09/02/2017 Inactive glimepiride 4 mg tablet RxNorm: 878256 TAKE 1 TABLET BY MOUTH ONCE DAILY 07/31/2016 09/13/2016 Inactive Generic For:*AMARYL 4MG 07/31/2016 9:02:38 AM Victoza 2-Dariusz 0.6 mg/0.1 mL (18 mg/3 mL) subcutaneous pen injector RxNorm: 168773 1.2 Milligram(s) SQ daily 05/18/201609/13 Inactive Victoza 2-Dariusz 0.6 mg/0.1 mL (18 mg/3 mL) subcutaneous pen injector RxNorm: 435775 1.2 Milligram(s) SQ daily 04/16/201605/17 Inactive levothyroxine 50 mcg tablet RxNorm: 686966 TAKE 1 TABLET BY MOUTH ONCE DAILY 04/08/2016 12/03/2016 Inactive Generic For:SYNTHROID 50MCG TAB 04/08/2016 9:05:40 AM levothyroxine 50 mcg tablet RxNorm: 797251 1 Tablet(s) PO daily TAKE 1 TABLET BY MOUTH ONCE DAILY 04/08/2016 12/03/2016 Inactive Generic For:SYNTHROID 50MCG TAB N O T I C E PRESCRIPTION PREVIOUSLY AUTHORIZED BY DOCTOR:HENRY BAIG bisoprolol 5 mg-hydrochlorothiazide 6.25 mg tablet RxNorm: 845423 1 Tablet(s) PO BID 03/23/2016 03/17/2017 Inactive Victoza 2-Dariusz 0.6 mg/0.1 mL (18 mg/3 mL) subcutaneous pen injector RxNorm: 496455 0.6 Milligram(s) SQ daily 03/19/201604/15 Inactive Lexapro 5 mg tablet RxNorm: 222170 1 Tablet(s) PO QHS 201606/16/2016 Inactive gabapentin 600 mg tablet RxNorm: 391311 1 Capsule(s) PO TID 07/201601/26/2017 Inactive glimepiride 4 mg tablet RxNorm: 325301 1 Tablet(s) PO daily 06/05/2016 Inactive Victoza 3-Dariusz 0.6 mg/0.1 mL (18 mg/3 mL) subcutaneous pen injector RxNorm: 351284 0.6 Milligram(s) SQ daily x2 weeks, then 1.2 mg SQ daily 03/18/2016 Inactive metformin 500 mg tablet RxNorm: 783725 1 Tablet(s) PO UD 1.5 in morning, noon and 1 at bedtime 08/14/2015 08/07/2016 Inactive gabapentin 600 mg tablet RxNorm: 217112 1 Capsule(s) PO TID SHE IS ONLY TAKING 1 QD 08/14/2015 03/18/2016 Inactive fluticasone 50 mcg/actuation nasal spray,suspension RxNorm: 222967 Fedscreek NASAL ONE SPRAY IN EACH NOSTRIL TWICE DAILY 07/26/2015 07/25/2015 Inactive fluticasone 50 mcg/actuation nasal spray,suspension RxNorm: 0322554 [place]reek NASAL ONE SPRAY IN EACH NOSTRIL TWICE DAILY 07/26/2015 02/20/2016 Inactive bisoprolol 5 mg-hydrochlorothiazide 6.25 mg tablet RxNorm: 449598 1 Tablet(s) PO daily 1 Tablet(s) PO BID 07/17/20152015 Inactive metformin 500 mg tablet RxNorm: 916555 1 Tablet(s) PO TID 1 Tablet(s) PO TID 07/17/2015 08/13/2015 Inactive Diflucan 100 mg tablet RxNorm: 463117 1 Tablet(s) PO daily 06/201507/21/2015 Inactive Zetia 10 mg tablet RxNorm: 555387 1 Tablet(s) PO daily 201506/03/2016 Inactive bisoprolol 5 mg-hydrochlorothiazide 6.25 mg tablet RxNorm: 798349 1 Tablet(s) PO BID 04/18/2015 07/16/2015 Inactive metformin 500 mg tablet RxNorm: 747627 1 Tablet(s) PO TID 03/0106/28/2015 Inactive glimepiride 4 mg tablet RxNorm: 144618 1 Tablet(s) PO daily 01/30/2015 Inactive levothyroxine 50 mcg tablet RxNorm: 758719 TAKE 1 TABLET BY MOUTH ONCE DAILY 01/31/2015 09/27/2015 Inactive Generic For:SYNTHROID 50MCG TAB N O T I C E PRESCRIPTION PREVIOUSLY AUTHORIZED BY DOCTOR:HENRY BAIG glimepiride 4 mg tablet RxNorm: 402402 1 Tablet(s) PO daily 07/29/2015 Inactive Invokana 100 mg tablet RxNorm: 6406344 1 Tablet(s) PO daily 07/16/2015 Inactive bisoprolol 5 mg-hydrochlorothiazide 6.25 mg tablet RxNorm: 329672 1 Tablet(s) PO BID 08/27/2014 02/22/2015 Inactive metformin 500 mg tablet RxNorm: 757048 1 Tablet(s) PO TID 08/1012/07/2014 Inactive metformin 500 mg tablet RxNorm: 773371 1 Tablet(s) PO TID 08/1008/09/2014 Inactive Fish Oil 1,000 mg capsule RxNorm: 1 Capsule(s) PO daily No Start Date Active Protonix 40 mg tablet,delayed release RxNorm: 478886 1 Tablet(s) PO QAM No Start Date Active furosemide 40 mg tablet RxNorm: 325356 1 Tablet(s) PO daily No Start Date Active pen needle, diabetic 31 gauge x 1/6" RxNorm: Miscellaneous No Start Date Active nitroglycerin 0.4 mg sublingual tablet RxNorm: 823790 1 Tablet(s) SL as needed chest pain No Start Date Active amlodipine 5 mg tablet RxNorm: 239115 1 Tablet(s) PO daily No Start Date Active Entresto 24 mg-26 mg tablet RxNorm: 0417851 1 Tablet(s) PO BID No Start Date Active aspirin 81 mg chewable tablet RxNorm: 121358 1 Tablet(s) PO daily No Start Date 06/02/2017 Inactive Eliquis 5 mg tablet RxNorm: 4164798 1 Tablet(s) PO BID No Start Date 01/26/2018 Inactive bisoprolol-hydrochlorothiazide oral RxNorm: 88883 oral No Start Date 08/26/2014 Inactive levothyroxine 50 mcg tablet RxNorm: 100984 1 Tablet(s) PO daily No Start Date 01/30/2015 Inactive potassium chloride ER 20 mEq tablet,extended release RxNorm: 159371 1 Tablet(s) PO daily No Start Date 06/21/2017 Inactive digoxin 250 mcg tablet RxNorm: 401002 1 Tablet(s) PO daily No Start Date 01/26/2018 Inactive Invokana 100 mg tablet RxNorm: 4211467 1 Tablet(s) PO daily No Start Date 12/11/2014 Inactive Victoza 3-Dariusz 0.6 mg/0.1 mL (18 mg/3 mL) subcutaneous pen injector RxNorm: 541487 0.6 Milligram(s) SQ daily x2 weeks, then 1.2 mg SQ daily No Start Date 12/01/2015 Inactive Effient 10 mg tablet RxNorm: 688268 1 Tablet(s) PO QAM No Start Date 01/26/2018 Inactive Zetia 10 mg tablet RxNorm: 824507 1 Tablet(s) PO BID No Start Date 03/18/2016 Inactive metoprolol succinate ER 100 mg tablet,extended release 24 hr RxNorm: 995742 1 Tablet(s) PO daily No Start Date 2017 Inactive gabapentin 300 mg capsule RxNorm: 387647 1 Capsule(s) PO BID No Start Date 08/13/2015 Inactive Lasix 40 mg tablet RxNorm: 126879 1 Tablet(s) PO BID No Start Date 04/14/2017 Inactive Coreg 3.125 mg tablet RxNorm: 427266 1 Tablet(s) PO BID with meals No [...] 04/15/2017 stress test and then shipped to [facility] Follow Up 03/19/2017 stress test and then shipped to [facility] diabetes mellitus 02/03/2017 headache 01/07/2017 diabetes mellitus 12/17/2016 diabetes mellitus 09/14/2016 diabetes mellitus 06/18/2016 medication follow up 04/16/2016 back pain 03/19/2016 back pain 11/14/2015 back pain 08/14/2015 diabetes mellitus 07/17/2015 Hospital Follow Up 03/25/2015 diabetes mellitus 12/04/2014 diabetes mellitus 08/14/2014 Results Observation Observation Code Item Item Code Result Date %Hba1C Hzm031 % HbA1c 09304-9 6.8 % 01/12/2018 %Hba1C Fxc095 Gluc Ave 148 mg/dL 01/12/2018 Metabolic Ord15 [...] 28.6 pg 01/11/2018 Cbc With Differential Ord2 [place]ergus% 7.8 % 01/11/2018 Cbc With Differential Ord2 [...] 1.70 K/ul 01/11/2018 Cbc With Differential Ord2 [place] ABS# 0.4 K/ul 01/11/2018 Cbc With Differential Ord2 Eos ABS# 0.1 K/ul 01/11/2018 Cbc With Differential Ord2 Baso ABS# 0.0 K/ul 01/11/2018 Magnesium Ord90 Mag 1.7 mg/dL 01/11/2018 Test(s) Not Perfromed [id number] Test(s) Not Performed Test(s) Not Performed. 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 B Type Natriuretic Peptide Sah5441 B-HEALTHCARE ADMINISTRATION INTERN 889.00 pg/ml 2017 Cbc With Differential Ord2 [...] 28.9 pg 09/20/2017 Cbc With Differential Ord2 [place]ergus% 5.6 % 09/20/2017 Cbc With Differential Ord2 [...] 1.68 K/ul 09/20/2017 Cbc With Differential Ord2 [place] ABS# 0.3 K/ul 09/20/2017 Cbc With Differential Ord2 Eos ABS# 0.1 K/ul 09/20/2017 Cbc With Differential Ord2 Baso ABS# 0.0 K/ul 09/20/2017 %Hba1C Fov979 % HbA1c 67808-2 7.9 % 09/20/2017 %Hba1C Agz493 Gluc Ave 180 mg/dL 09/20/2017 Magnesium Ord90 [...] 88.5 fl 07/07/2017 Cbc With Differential Ord2 Fergus% 7.9 % 07/07/2017 Cbc With Differential Ord2 [...] 1.34 K/ul 07/07/2017 Cbc With Differential Ord2 [place] ABS# 0.4 K/ul 07/07/2017 Cbc With Differential Ord2 Eos ABS# 0.1 K/ul 07/07/2017 Cbc With Differential Ord2 Baso ABS# 0.0 K/ul 07/07/2017 Comp Metabolic Ctx361 NA 142 mEq/L 07/07/2017 Comp Metabolic Jjo526 K 4.3 mEq/L 07/07/2017 Comp Metabolic Jjj378 CL 105 mEq/L 07/07/2017 Comp Metabolic Dlu903 CO2 28.0 mEq/L 07/07/2017 Comp Metabolic Aal929 ANION GAP 13 07/07/2017 Comp Metabolic Wco070 GLUCOSE 197 mg/dL 07/07/2017 Comp Metabolic Jib790 Creat 1.1 mg/dL 07/07/2017 Comp Metabolic Cks827 eGFR 51 ml/min/1.73m2 07/07/2017 Comp Metabolic Hvy642 BUN 21 mg/dL 07/07/2017 Comp Metabolic Cav105 B/C Ratio 18.9 Ratio 07/07/2017 Comp Metabolic Kmn011 CALCIUM 8.9 mg/dL 07/07/2017 Comp Metabolic Wmx779 ALK PHOS 51 U/L 07/07/2017 Comp Metabolic Twu984 AST(SGOT) 11 U/L 07/07/2017 Comp Metabolic Bei037 ALT(SGPT) 11 U/L 07/07/2017 Comp Metabolic Qfi389 BILI T 0.3 mg/dL 07/07/2017 Comp Metabolic Amm109 ALBUMIN 4.2 g/dL 07/07/2017 Comp Metabolic Saq669 TPRO 6.0 g/dL 07/07/2017 Comp Metabolic Ctz041 GLOB 1.8 g/dL 07/07/2017 Comp Metabolic Hqt241 A/G Ratio 2.3 Ratio 07/07/2017 Comp Metabolic Dcu412 Osmo 292 mOsmo 07/07/2017 Digoxin Ord9 DIGOXIN 1.3 NG/ML 07/07/2017 Tsh Ord6 TSH (3rd IS) 2.19 uIU/mL 07/07/2017 B Type Natriuretic Peptide Sql0994 B-HEALTHCARE ADMINISTRATION INTERN 801.00 pg/ml 2017 Culture Urine [id number] URINE CULTURE SEE NOTES 04/19/2017 Culture Urine [id number] Continued Results 04/19/2017 Urine Culture Ucult Complete >100,000 col/ml aerobic growth sent to ref lab 04/16/2017 Comp Metabolic Mtr721 NA 140 mEq/L 01/26/2017 Comp Metabolic Yhc080 K 4.6 mEq/L 01/26/2017 Comp Metabolic Lsi227 CL 102 mEq/L 01/26/2017 Comp Metabolic Dha823 CO2 28.0 mEq/L 01/26/2017 Comp Metabolic Ana557 ANION GAP 15 01/26/2017 Comp Metabolic Oga772 GLUCOSE 173 mg/dL 01/26/2017 Comp Metabolic Mfv298 Creat 1.0 mg/dL 01/26/2017 Comp Metabolic Scz313 eGFR 56 ml/min/1.73m2 01/26/2017 Comp Metabolic Vnb770 BUN 23 mg/dL 01/26/2017 Comp Metabolic Lqs590 B/C Ratio 22.5 Ratio 01/26/2017 Comp Metabolic Vbt434 CALCIUM 9.4 mg/dL 01/26/2017 Comp Metabolic Uic082 ALK PHOS 52 U/L 01/26/2017 Comp Metabolic Idl614 AST(SGOT) 12 U/L 01/26/2017 Comp Metabolic Dci858 ALT(SGPT) 12 U/L 01/26/2017 Comp Metabolic Yii980 BILI T 0.5 mg/dL 01/26/2017 Comp Metabolic Cbe735 ALBUMIN 4.4 g/dL 01/26/2017 Comp Metabolic Zpy325 TPRO 6.5 g/dL 01/26/2017 Comp Metabolic Cap358 GLOB 2.1 g/dL 01/26/2017 Comp Metabolic Jfn096 A/G Ratio 2.1 Ratio 01/26/2017 Comp Metabolic Ces572 Osmo 287 mOsmo 01/26/2017 Cbc With Differential [...] 29.2 pg 01/26/2017 Cbc With Differential Ord2 Fergus% 4.9 % 01/26/2017 Cbc With Differential Ord2 [...] 1.75 K/ul 01/26/2017 Cbc With Differential Ord2 [place] ABS# 0.4 K/ul 01/26/2017 Cbc With Differential Ord2 Eos ABS# 0.1 K/ul 01/26/2017 Cbc With Differential Ord2 Baso ABS# 0.0 K/ul 01/26/2017 %Hba1C Lxa293 % HbA1c 99061-2 7.8 % 01/26/2017 %Hba1C Gdg338 Gluc Ave 177 mg/dL 01/26/2017 Lipid Ord30 CHOL 239 mg/dL 01/26/2017 Lipid Ord30 HDL 40.0 mg/dl 01/26/2017 Lipid Ord30 TRIG 325 mg/dL 01/26/2017 Lipid Ord30 LDL 134 mg/dL 01/26/2017 Lipid Ord30 C/HDL 6.0 Ratio 01/26/2017 Free T4 Hxr913 FREE T4 0.95 ng/dL 01/26/2017 Tsh Ord6 [...] Metabolic Ord15 CALCIUM 9.0 mg/dL 09/08/2016 %Hba1C Axp354 % HbA1c 63418-5 7.5 % 09/08/2016 %Hba1C Qgt185 Gluc Ave 169 mg/dL 09/08/2016 Tsh Ord6 hTSH II 2.64 uIU/mL 03/13/2016 %Hba1C Vgs267 % HbA1c 41931-9 8.2 % 03/13/2016 %Hba1C Ykn895 Gluc Ave 189 mg/dL 03/13/2016 Lipid Ord30 CHOL 233 mg/dL 03/13/2016 Lipid Ord30 HDL 46.0 mg/dl 03/13/2016 Lipid Ord30 TRIG 276 mg/dL 03/13/2016 Lipid Ord30 LDL 132 mg/dL 03/13/2016 Lipid Ord30 C/HDL 5.1 Ratio 03/13/2016 Free T4 Rft200 FREE T4 0.94 ng/dL 03/13/2016 Cbc With [...] 30.3 pg 03/13/2016 Cbc With Differential Ord2 Fergus% 6.1 % 03/13/2016 Cbc With Differential Ord2 [...] 1.63 K/ul 03/13/2016 Cbc With Differential Ord2 [place] ABS# 0.3 K/ul 03/13/2016 Cbc With Differential Ord2 Eos ABS# 0.1 K/ul 03/13/2016 Cbc With Differential Ord2 Baso ABS# 0.0 K/ul 03/13/2016 Comp Metabolic Ttr228 NA 139 mEq/L 03/13/2016 Comp Metabolic Njb981 K 4.3 mEq/L 03/13/2016 Comp Metabolic Kqg288 CL 103 mEq/L 03/13/2016 Comp Metabolic Whv762 CO2 28.0 mEq/L 03/13/2016 Comp Metabolic Kkr241 ANION GAP 12 03/13/2016 Comp Metabolic Thc309 GLUCOSE 200 mg/dL 03/13/2016 Comp Metabolic Xis839 Creat 0.9 mg/dL 03/13/2016 Comp Metabolic Yve715 eGFR 69 ml/min/1.73m2 03/13/2016 Comp Metabolic Yiq779 BUN 19 mg/dL 03/13/2016 Comp Metabolic Lvw012 B/C Ratio 22.4 Ratio 03/13/2016 Comp Metabolic Nef834 CALCIUM 9.0 mg/dL 03/13/2016 Comp Metabolic Eys603 ALK PHOS 57 U/L 03/13/2016 Comp Metabolic Aha578 AST(SGOT) 13 U/L 03/13/2016 Comp Metabolic Wjh448 ALT(SGPT) 16 U/L 03/13/2016 Comp Metabolic Vzp098 BILI T 0.4 mg/dL 03/13/2016 Comp Metabolic Idf712 ALBUMIN 4.2 g/dL 03/13/2016 Comp Metabolic Doh301 TPRO 6.3 g/dL 03/13/2016 Comp Metabolic Pqc446 GLOB 2.1 g/dL 03/13/2016 Comp Metabolic Aua919 A/G Ratio 2.0 Ratio 03/13/2016 Comp Metabolic Iaf317 Osmo 285 mOsmo 03/13/2016 %Hba1C Jva678 % HbA1c 82241-4 8.3 % 11/14/2015 %Hba1C Vdm173 Gluc Ave 192 mg/dL 11/14/2015 Lipid Ord30 CHOL 210 mg/dL 07/19/2015 Lipid Ord30 HDL 43.0 mg/dl 07/19/2015 Lipid Ord30 TRIG 311 mg/dL 07/19/2015 Lipid Ord30 LDL 105 mg/dL 07/19/2015 Lipid Ord30 C/HDL 4.9 Ratio 07/19/2015 %Hba1C Crv042 % HbA1c 60063-5 7.6 % 07/19/2015 %Hba1C Qws357 Gluc Ave 171 mg/dL 07/19/2015 Cbc With [...] 28.8 pg 07/19/2015 Cbc With Differential Ord2 Fergus% 6.1 % 07/19/2015 Cbc With Differential Ord2 [...] 1.63 K/ul 07/19/2015 Cbc With Differential Ord2 [place] ABS# 0.3 K/ul 07/19/2015 Cbc With Differential Ord2 Eos ABS# 0.1 K/ul 07/19/2015 Cbc With Differential Ord2 Baso ABS# 0.0 K/ul 07/19/2015 Cbc With Differential Ord2 New Analyzer Notice Please note new ref ranges starting 03-27-2015 due to implemntation of new five part differential hematolgy analyzer. 07/19/2015 Comp Metabolic Gyz289 NA 138 mEq/L 07/19/2015 Comp Metabolic Cdp510 K 4.3 mEq/L 07/19/2015 Comp Metabolic Sts668 CL 100 mEq/L 07/19/2015 Comp Metabolic Let307 CO2 33.0 mEq/L 07/19/2015 Comp Metabolic Tlx765 ANION GAP 9 07/19/2015 Comp Metabolic Nzi930 GLUCOSE 149 mg/dL 07/19/2015 Comp Metabolic Aty007 Creat 0.9 mg/dL 07/19/2015 Comp Metabolic Jhr700 eGFR 62 ml/min/1.73m2 07/19/2015 Comp Metabolic Pil283 BUN 19 mg/dL 07/19/2015 Comp Metabolic Pxz149 B/C Ratio 20.2 Ratio 07/19/2015 Comp Metabolic Uxg542 CALCIUM 9.5 mg/dL 07/19/2015 Comp Metabolic Wur903 ALK PHOS 52 U/L 07/19/2015 Comp Metabolic Fwp166 AST(SGOT) 15 U/L 07/19/2015 Comp Metabolic Arr735 ALT(SGPT) 14 U/L 07/19/2015 Comp Metabolic Wwk222 BILI T 0.5 mg/dL 07/19/2015 Comp Metabolic Slv518 ALBUMIN 4.4 g/dL 07/19/2015 Comp Metabolic Drw626 TPRO 6.4 g/dL 07/19/2015 Comp Metabolic Ebp441 GLOB 2.0 g/dL 07/19/2015 Comp Metabolic Guc432 A/G Ratio 2.2 Ratio 07/19/2015 Comp Metabolic Tpb018 Osmo 281 mOsmo 07/19/2015 Free T4 Iwt877 FREE T4 0.92 ng/dL 07/19/2015 Tsh Ord6 hTSH II 1.95 uIU/mL 07/19/2015 Microalbumin Hnl552 MicroAlb 0.4 mg/dL 07/19/2015 Comp Metabolic Pzn247 NA 137 mEq/L 12/04/2014 Comp Metabolic Ftk828 K 4.0 mEq/L 12/04/2014 Comp Metabolic Wsq305 CL 100 mEq/L 12/04/2014 Comp Metabolic Xmg988 CO2 29.0 mEq/L 12/04/2014 Comp Metabolic Vrh850 ANION GAP 12 12/04/2014 Comp Metabolic Lrx126 GLUCOSE 171 mg/dL 12/04/2014 Comp Metabolic Udm255 Creat 1.0 mg/dL 12/04/2014 Comp Metabolic Pod858 eGFR 60 ml/min/1.73m2 12/04/2014 Comp Metabolic Tvd030 BUN 25 mg/dL 12/04/2014 Comp Metabolic Znn983 B/C Ratio 25.8 Ratio 12/04/2014 Comp Metabolic Hlx253 CALCIUM 9.4 mg/dL 12/04/2014 Comp Metabolic Ill688 ALK PHOS 60 U/L 12/04/2014 Comp Metabolic Axy175 AST(SGOT) 13 U/L 12/04/2014 Comp Metabolic Wbp169 ALT(SGPT) 17 U/L 12/04/2014 Comp Metabolic Euj098 BILI T 0.4 mg/dL 12/04/2014 Comp Metabolic Thb174 ALBUMIN 4.4 g/dL 12/04/2014 Comp Metabolic Opj780 TPRO 6.9 g/dL 12/04/2014 Comp Metabolic Lxb267 GLOB 2.5 g/dL 12/04/2014 Comp Metabolic Svh842 A/G Ratio 1.8 Ratio 12/04/2014 Comp Metabolic Lvn522 Osmo 282 mOsmo 12/04/2014 Tsh Ord6 hTSH II 1.78 uIU/mL 12/04/2014 %Hba1C Nfo062 % HbA1c 95861-7 8.3 % 12/04/2014 %Hba1C Czq104 Gluc Ave 192 mg/dL 12/04/2014 Free T4 Wov449 FREE T4 0.85 ng/dL 12/04/2014 Lipid Ord30 [...] hygiene 11/25/2017 None Full Exam - General 1995 Eyes conjunctiva /eyelids Overall: conjunctiva clear 11/25/2017 [...] lips 11/25/2017 None Full Exam - General 1995 Ears/Nose/Throat [...] Codes Date URINALYSIS NONAUTO W/O SCOPE CPT-4: 49641 02/07/2018 ADMIN INFLUENZA VIRUS VAC CPT-4: G0008 11/25/2017 FLU VAC NO PRSV 4 ANABELLE 3 YRS+ CPT-4: 64998 11/25/2017 GLUC MONITOR CONT PHYS I&R CPT-4: 83945 10/26/2017 GLUCOSE MONITORING CONT CPT-4: 08301 10/11/2017 URINALYSIS NONAUTO W/O SCOPE CPT-4: 25438 04/15/2017 FLU VAC NO PRSV 4 ANABELLE 3 YRS+ CPT-4: 93937 12/17/2016 ADMIN INFLUENZA VIRUS VAC CPT-4: G0008 12/17/2016 FLU VACC PRSV FREE INC ANTIG Formatting Model/CDA Sections, Assigned to/Nery Daniels CPT-4: 51447Hhhaebh 11/14/2015 ADMIN INFLUENZA VIRUS VAC CPT-4: G0008 11/14/2015 ADMIN INFLUENZA VIRUS VAC Formatting Model/CDA Sections, Assigned to/Nery Daniels CPT-4: S2438Atyskxs 12/04/2014 FLU VACC 4 ANABELLE 3 YRS PLUS IM SNOMED CT: [id number] CPT-4: 21045 12/04/2014 Vital Signs Date Vital 01/27/2018 Blood Pressure 1: 142/70 Code : 8480-6 BMI: 29.5 Code : 35391-0 Heart Rate 1 : 61 bpm Height: 5' SpO2: 99% Weight: 151 lbs 11/25/2017 Blood Pressure 1: 148/72 Code : 8480-6 BMI: 30.9 Code : 66127-9 Heart Rate 1 : 62 bpm Height: 5' SpO2: 98% Weight: 158 lbs 10/26/2017 Blood Pressure 1: 156/74 Code : 8480-6 BMI: 31.2 Code : 17772-7 Heart Rate 1 : 71 bpm Height: 5' SpO2: 98% Weight: 160 lbs 10/11/2017 Blood Pressure 1: 128/70 Code : 8480-6 BMI: 30.9 Code : 66233-4 Heart Rate 1 : 70 bpm Height: 5' SpO2: 95% Weight: 158 lbs 09/22/2017 Blood Pressure 1: 110/52 Code : 8480-6 BMI: 30.9 Code : 84457-3 Heart Rate 1 : 72 bpm Height: 5' SpO2: 99% Weight: 158 lbs 07/06/2017 Blood Pressure 1: 120/85 Code : 8480-6 BMI: 31.4 Code : 11713-6 Heart Rate 1 : 74 bpm Height: 5' SpO2: 92% Weight: 161 lbs 06/03/2017 Blood Pressure 1: 120/62 Code : 8480-6 BMI: 31.1 Code : 86748-3 Heart Rate 1 : 73 bpm Height: 5' SpO2: 99% Weight: 159 lbs 05/12/2017 Blood Pressure 1: 132/68 Code : 8480-6 BMI: 32.4 Code : 07931-3 Heart Rate 1 : 95 bpm Height: 5' SpO2: 97% Weight: 166 lbs 04/15/2017 Blood Pressure 1: 128/84 Code : 8480-6 BMI: 32.4 Code : 88185-5 Heart Rate 1 : 62 bpm Height: 5' SpO2: 97% Weight: 166 lbs 03/19/2017 Blood Pressure 1: 112/60 Code : 8480-6 BMI: 32.0 Code : 96567-4 Height: 5' Weight: 164 lbs 02/03/2017 Blood Pressure 1: 128/76 Code : 8480-6 BMI: 33.4 Code : 40528-2 Heart Rate 1 : 91 bpm Height: 5' SpO2: 99% Weight: 171 lbs 01/07/2017 Blood Pressure 1: 126/74 Code : 8480-6 BMI: 34.2 Code : 30624-5 Heart Rate 1 : 83 bpm Height: 5' SpO2: 97% Weight: 175 lbs 12/17/2016 Blood Pressure 1: 122/72 Code : 8480-6 BMI: 34.0 Code : 82264-3 Heart Rate 1 : 78 bpm Height: 5' SpO2: 97% Weight: 174 lbs 09/14/2016 Blood Pressure 1: 128/86 Code : 8480-6 BMI: 33.8 Code : 72320-4 Heart Rate 1 : 88 bpm Height: 5' SpO2: 96% Weight: 173 lbs 06/18/2016 Blood Pressure 1: 122 Code : 8480-6 BMI: 34.8 Code : 55415-0 Heart Rate 1 : 78 bpm Height: 5' SpO2: 98% Weight: 178 lbs 04/16/2016 Blood Pressure 1: 134/68 Code : 8480-6 BMI: 35.0 Code : 78979-1 Heart Rate 1 : 67 bpm Height: 5' SpO2: 97% Weight: 179 lbs 03/19/2016 Blood Pressure 1: 132/74 Code : 8480-6 BMI: 34.6 Code : 96852-5 Heart Rate 1 : 74 bpm Height: 5' SpO2: 97% Weight: 177 lbs 11/14/2015 Blood Pressure 1: 132/70 Code : 8480-6 BMI: 35.2 Code : 51800-1 Heart Rate 1 : 68 bpm Height: 5' Weight: 180 lbs 08/14/2015 Blood Pressure 1: 12274 Code : 8480-6 BMI: 33.8 Code : 94325-1 Heart Rate 1 : 73 bpm Height: 5' SpO2: 93% Weight: 173 lbs 07/17/2015 Blood Pressure 1: 138/78 Code : 8480-6 BMI: 34.0 Code : 37779-3 Heart Rate 1 : 85 bpm Height: 5' SpO2: 97% Weight: 174 lbs 03/25/2015 Blood Pressure 1: 130/78 Code : 8480-6 BMI: 33.2 Code : 74770-9 Heart Rate 1 : 77 bpm Height: 5' SpO2: 97% Weight: 170 lbs 12/04/2014 Blood Pressure 1: 120/74 Code : 8480-6 BMI: 35.4 Code : 92759-9 Heart Rate 1 : 67 bpm Height: 5' SpO2: 94% Weight: 181 lbs 5 oz 08/14/2014 Blood Pressure 1: 132/68 Code : 8480-6 BMI: 32.1 Code : 69201-7 Heart Rate 1 : 62 bpm Height: [...] data Encounters Encounter Performer Location Codes Date ([id number]) 23246 EST. PATIENT, LEVEL IV Diagnosis: Type 2 diabetes mellitus with hyperglycemia[ICD10: E11.65] Diagnosis: Essential (primary) hypertension[ICD10: I10] Diagnosis: Major depressive disorder, recurrent, mild[ICD10: F33.0] Diagnosis: Generalized anxiety disorder[ICD10: F41.1] Claudia Nicole MD, [facility] CPT-4: 30729 01/27/2018 ([id number]) 76928 EST. PATIENT, LEVEL IV Diagnosis: Type 2 diabetes mellitus with hyperglycemia[ICD10: E11.65] Diagnosis: Essential (primary) hypertension[ICD10: I10] Diagnosis: Encounter for immunization[ICD10: Z23] Diagnosis: Carpal tunnel syndrome, left upper limb[ICD10: G56.02] Claudia Nicole MD, [facility] CPT-4: 02580 11/25/2017 ([id number]) 73213 EST. PATIENT, LEVEL III Diagnosis: Type 2 diabetes mellitus with hyperglycemia[ICD10: E11.65] Claudia Nicole MD, [facility] CPT-4: 27451 10/26/2017 ([id number]) Miscellaneous no charge Diagnosis: Type 2 diabetes mellitus with hyperglycemia[ICD10: E11.65] Claudia Nicole MD, [facility] CPT-4: 92349 10/18/2017 ([id number]) 70050 EST. 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 PATIENT, LEVEL IV Diagnosis: Type 2 diabetes mellitus with hyperglycemia[ICD10: E11.65] Diagnosis: Paroxysmal atrial fibrillation[ICD10: I48.0] Diagnosis: Essential (primary) hypertension[ICD10: I10] Mila Nicole MD, [facility] CPT-4: 77181 07/06/2017 ([id number]) 37813 EST. PATIENT, LEVEL IV Diagnosis: Essential (primary) hypertension[ICD10: I10] Diagnosis: Type 2 diabetes mellitus with hyperglycemia[ICD10: E11.65] Diagnosis: Paroxysmal atrial fibrillation[ICD10: I48.0] Claudia Nicole MD, [facility] CPT-4: 57297 06/03/2017 08125 EST. PATIENT, LEVEL III Diagnosis: Generalized anxiety disorder[ICD10: F41.1] Diagnosis: Major depressive disorder, recurrent, moderate[ICD10: F33.1] Diagnosis: Paroxysmal tachycardia, unspecified[ICD10: I47.9] Gardenia Nicole MD, [facility] CPT-4: 22366 05/12/2017 ([id number]) 63903 EST. PATIENT, LEVEL IV Diagnosis: Essential (primary) hypertension[ICD10: I10] Diagnosis: Cough[ICD10: R05] Diagnosis: Dysuria[ICD10: R30.0] Mila Nicole MD, [facility] CPT-4: 91722 04/15/2017 ([id number]) 38517 EST. PATIENT, LEVEL IV Diagnosis: Type 2 diabetes mellitus with hyperglycemia[ICD10: E11.65] Diagnosis: Essential (primary) hypertension[ICD10: I10] Mila Nicole MD, [facility] CPT-4: 31515 03/19/2017 ([id number]) 13405 EST. PATIENT, LEVEL III Diagnosis: Type 2 diabetes mellitus with hyperglycemia[ICD10: E11.65] Mila Nicole MD [facility] CPT-4: 28244 02/03/2017 47083 EST. PATIENT, LEVEL IV Diagnosis: Generalized anxiety disorder[ICD10: F41.1] Diagnosis: Type 2 diabetes mellitus with hyperglycemia[ICD10: E11.65] Diagnosis: Essential (primary) hypertension[ICD10: I10] Gardenia Nicole MD, [facility] CPT-4: 27151 01/07/2017 ([id number]) 93443 EST. PATIENT, LEVEL III Diagnosis: Type 2 diabetes mellitus with hyperglycemia[ICD10: E11.65] Diagnosis: Encounter for immunization[ICD10: Z23] Mila Nicole MD [facility] CPT-4: 69699 12/17/2016 ([id number]) 62064 EST. PATIENT, LEVEL IV Diagnosis: Type 2 diabetes mellitus with hyperglycemia[ICD10: E11.65] Diagnosis: Essential (primary) hypertension[ICD10: I10] Diagnosis: Major depressive disorder, recurrent, mild[ICD10: F33.0] Mila Nicole MD, [facility] CPT-4: 60113 09/14/2016 ([id number]) 04760 EST. 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 PATIENT, LEVEL IV Diagnosis: Type 2 diabetes mellitus with hyperglycemia[ICD10: E11.65] Diagnosis: Essential (primary) hypertension[ICD10: I10] Mila Nicole MD, [facility] CPT-4: 99614 04/16/2016 ([id number]) 69745 EST. 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 PATIENT, LEVEL IV Diagnosis: Type 2 diabetes mellitus with hyperglycemia[ICD10: E11.65] Diagnosis: Encounter for immunization[ICD10: Z23] Diagnosis: Essential (primary) hypertension[ICD10: I10] Mila Nicole MD, [facility] CPT-4: 41710 11/14/2015 ([id number]) 53493 EST. PATIENT, LEVEL IV Diagnosis: Type 2 diabetes mellitus with hyperglycemia[ICD10: E11.65] Diagnosis: Essential (primary) hypertension[ICD10: I10] Diagnosis: Low back pain[ICD10: M54.5] Mila Nicole MD, [facility] CPT- 4: 16859 08/14/2015 ([id number]) 03764 EST. PATIENT, LEVEL IV Diagnosis: Type 2 diabetes mellitus with hyperglycemia[ICD10: E11.65] Diagnosis: Essential (primary) hypertension[ICD10: I10] Diagnosis: Hypothyroidism, unspecified[ICD10: E03.9] Mila Nicole MD, [facility] CPT-4: 93473 07/17/2015 ([id number]) 29958 EST. PATIENT, LEVEL IV Diagnosis: Essential (primary) hypertension[ICD10: I10] Diagnosis: Type 2 diabetes mellitus with hyperglycemia[ICD10: E11.65] Diagnosis: Headache[ICD10: R51] Gardenia Nicole MD, [facility] CPT-4: 17239 03/25/2015 ([id number]) 24287 EST. PATIENT, LEVEL IV Diagnosis: ESSENTIAL HYPERTENSION[ICD9: 401.9] Diagnosis: DIABETES TYPE II[ICD9: 250.00] Diagnosis: Aortic stenosis[ICD9: 424.1] Mila Nicole MD, [facility] CPT- 4: 55448 12/04/2014 ([id number]) OFFICE VISIT, NEW - LEVEL 4 Diagnosis: ESSENTIAL HYPERTENSION[ICD9: 401.9] Diagnosis: Diabetes mellitus out of control[ICD9: 250.02] Mila Nicole MD, [facility] CPT-4: 31355 08/14/2014 Plan of Care Planned Activity Notes Codes Status Date Patient Education: Patient Medication Summary Completed 02/07/2018 Care Plan: Urine Culture Pending 02/07/2018 Visit Plan: Hypertension - well controlled [...] current medications. 01/27/2018 Appointment: Claudia Pruitt WPtel: [address] [place], [place] [phone] [place] (15 min) Moderate 01/27/2018 Patient Education: Patient [...] any worse 11/25/2017 Appointment: Claud[facility] Pruitt [facility]Ptel[phone] [place] (15 min) Moderate 11/25/2017 Patient Education: Patient Medication Summary Completed 11/25/2017 App[facility]ment: [phone] ([place] min) Moderate 10/28/2017 Visit Plan: Diabetes [...] to appt. 10/26/2017 Appointment: Claudia Pruitt WPtel: [phone] (15 min) Moderate 10/26/2017 Patient Education: [...] of plan. 10/11/2017 Appointment: [phone] (30 min) Complex 10/11/2017 Patient Education: [...] Summary Completed 09/22/2017 Appointment: Mila Nicole WPtel: [phone] [facility] (15 min) Moderate 09/13/2017 Appointment: Mila Nicole WPtel: [phone] [facility] [place] (15 min) Moderate 09/07/2017 Visit [...] becoming uncontrolled. 07/06/2017 Appointment: Mila Nicole WPtel: [phone] [facility] [place] (15 min) Moderate 07/06/2017 Patient Education: Patient Medication Summary Completed 07/06/2017 Appointment: Mila Nicole WPtel: [phone] [facility] (15 min) Moderate 06/07/2017 Visit Plan: [...] controlled. 06/03/2017 Appointment: [phone] (30 min) Complex 06/03/2017 Patient Education: [...] plan 05/12/2017 Appointment: [facility] Shah [phone] [facility] (30 min) Complex 05/12/2017 Patient Education: [...] medication. 04/15/2017 Appointment: [phone] (15 min) Moderate 04/15/2017 Patient Education: Patient [...] units daily. 03/19/2017 Appointment: [phone] (15 min) Moderate 03/19/2017 Patient Education: Patient Medication Summary Completed 03/19/2017 Appointment: Mila Nicole WPtel: [phone] [facility] (15 min) Moderate 02/24/2017 Visit Plan: [...] HS 02/03/2017 Appointment: [phone] (15 min) Moderate 02/03/2017 Patient Education: Patient [...] concerns. 01/07/2017 Appointment: [facility] Shah [phone] (30 min) Complex 01/07/2017 Patient Education: [...] to allow for greater blood glucose control. [id number], 02/2018 junior nordisk 12/17/2016 Appointment: Mila Nicole WPtel: [phone] [facility] (15 min) Moderate 12/17/2016 Patient Education: Patient Medication Summary Completed 12/17/2016 Patient Education: Obesity Completed 12/17/2016 Appointment: [phone] (15 min) Moderate 12/14/2016 Visit Plan: Diabetes [...] medications. 09/14/2016 Appointment: Mila Nicole WPtel: [phone] [facility] [place] (15 min) Moderate 09/14/2016 Patient Education: [...] at home. 06/18/2016 Appointment: Mila Nicole WPtel: [phone] [facility] (15 min) Moderate 06/18/2016 Patient Education: [...] home. 04/16/2016 Appointment: [phone] [place] (15 min) Moderate 04/16/2016 Patient Education: [...] gabapentin 03/19/2016 Appointment: [phone] (15 min) Moderate 03/19/2016 Patient Education: Patient [...] home. 11/14/2015 Appointment: [facility]el[phone] [place] (15 min) Moderate 11/14/2015 Patient Education: [...] check [id number] 07/17/2015 Appointment: Mila Nicole WPtel: [facility] (15 min) Moderate 07/17/2015 Patient Education: Patient [...] Hypertension Completed 03/25/2015 Appointment: Mila Nicole WPtel: [facility] (15 min) Moderate 01/14/2015 Visit Plan: Diabetes [...] on previous levels of control. 12/04/2014 Appointment: HarrisonMila [facility]Ptel[phone] (15 min) Moderate 12/04/2014 Patient Education: Patient [...] control. 08/14/2014 Appointment: [phone] [place] (S[place] New Patient 08/14/2014 Patient Education: [...] to allow for greater blood glucose control. [id number], 02/2018 junior nordisk . Hypertension - well [...]
[2018-03-30] MEDS ORDERED: ACHD5005 PO (10:56)
--- NOTE | 2018-03-30 10:57 | Discharge Inst-Simple/Standard ---
Discharge Inst-Standard Discharge Medications New, Converted or Re-Newed RX: RX on Chart Patient Instructions/Follow Up Plan of Care/Instructions/FU: Band aids off in 48 hours. Incentive spirometry. F/U in 3 weeks. Resume ELIQUIS and asprin tomorrow evening Activity as Tolerated: Yes Discharge Diet: No Restrictions RAJEEV CAMILO MD Mar 30, 2018 10:57
--- OUTSIDE RECORDS SUMMARY | 2018-03-30 10:57 | XMS REPORT | CCD ---
Author Author Mila Nciole Organization [facility] Address [address] [place] [address] Phone Care Team Providers Care Solderer Electronic Name Role Phone PP Unavailable CCM Unavailable Summary Purpose Interface Exchange Insurance Providers Payer name Policy type / Coverage type Covered republican ID Effective Begin Date Effective End Date WPS Medicare Part B Medicare Part B [id number] Unknown AARP Medicare Part B [id number] Unknown Family history Mother Diagnosis Age At [...] Unknown 3 08/14/[address]: 343660514 Never smoker 08/14/[address]: 219310329 Never drinks alcohol 08/14/2014 Allergies, Adverse Reactions, Alerts Substance Reaction Codes Entered Date Inactivated Date Status * OTHER REACTION - SEE ANSWER BOX Invokana, Victoza Unknown 07/2017 No Inactive Date Active Paxil has blurred vision RxNorm: 452664 08/14/2014 No Inactive Date Active Lipitor RxNorm: 72871 08/14/2014 No Inactive Date Active Past Medical History Illness Codes Condition Status Onset Date Resolved Date Essential (primary) hypertension ICD-9: 401.1 ICD-10: I10 [...] Dates Condition Status Essential (primary) hypertension ICD-9: 401.1 ICD-10: I10 [...] 200 mg tablet,extended release 24 hr RxNorm: 602481 1 Tablet(s) PO daily 01/27/2018 No Stop Date Active Eliquis 2.5 mg tablet RxNorm: 2741856 1 Tablet(s) PO BID 2017 No Stop Date Active digoxin 125 mcg tablet RxNorm: 403256 1 Tablet(s) PO daily No Stop Date Active Basaglar KwikPen U-100 Insulin 100 unit/mL (3 mL) subcutaneous RxNorm: 1592811 20 Unit(s) SQ daily 11/25/201705/23 Active UPDATE RX metformin 500 mg tablet RxNorm: 317789 1 Tablet(s) PO UD 1.5 in morning, noon and 1 at bedtime 10/28/2017 10/22/2018 Active Basaglar KwikPen U-100 Insulin 100 unit/mL (3 mL) subcutaneous RxNorm: 2244478 18 Unit(s) SQ daily 10/26/201711/24 Inactive UPDATE RX levothyroxine 50 mcg tablet RxNorm: 922237 TAKE 1 TABLET BY MOUTH ONCE DAILY 10/15/2017 06/11/2018 Active Generic For:SYNTHROID 50MCG TAB 10/15/2017 9:59:00 AM escitalopram 10 mg tablet RxNorm: 589616 1 Tablet(s) PO QPM 01/201809/16/2018 Active Generic For:LEXAPRO 5MG 01/07/2017 9:05:43 AM Basaglar KwikPen U-100 Insulin 100 unit/mL (3 mL) subcutaneous RxNorm: 4148108 15 Unit(s) SQ daily 09/22/201710/25 Inactive potassium chloride ER 20 mEq tablet,extended release RxNorm: 009820 1 Tablet(s) PO daily 06/22/2017 01/17/2018 Inactive Lantus Solostar U-100 Insulin 100 unit/mL (3 mL) subcutaneous pen RxNorm: 987307 10 Unit(s) SQ daily 06/08/2017 Inactive Basaglar KwikPen U-100 Insulin 100 unit/mL (3 mL) subcutaneous RxNorm: 8695186 10 Unit(s) SQ daily 06/08/201706/07 Inactive Basaglar KwikPen U-100 Insulin 100 unit/mL (3 mL) subcutaneous RxNorm: 8781113 10 Unit(s) SQ daily 06/08/201709/21 Inactive Lexapro 5 mg tablet RxNorm: 240916 1 Tablet(s) PO daily 201711/27/2017 Inactive Lexapro 5 mg tablet RxNorm: 050033 1 Tablet(s) PO daily 201705/31/2017 Inactive bisoprolol 5 mg-hydrochlorothiazide 6.25 mg tablet RxNorm: 750882 1 Tablet(s) PO BID 05/04/2017 06/02/2017 Inactive Keflex 500 mg capsule RxNorm: 701899 1 Capsule(s) PO QID 201704/21/2017 Inactive Lantus Solostar 100 unit/mL (3 mL) subcutaneous insulin pen RxNorm: 700850 10 Unit(s) SQ daily 02/03/2017 06/07/2017 Inactive levothyroxine 50 mcg tablet RxNorm: 969435 TAKE 1 TABLET BY MOUTH ONCE DAILY 02/01/2017 09/28/2017 Inactive Generic For:SYNTHROID 50MCG TAB 02/01/2017 9:20:59 AM gabapentin 600 mg tablet RxNorm: 861108 1 Capsule(s) PO TID 01/21/2018 Inactive Lexapro 5 mg tablet RxNorm: 304991 TAKE 1 TABLET BY MOUTH AT BEDTIME 01/07/2017 09/21/2017 Inactive Generic For:LEXAPRO 5MG 01/07/2017 9:05:43 AM Victoza 2-Dariusz 0.6 mg/0.1 mL (18 mg/3 mL) subcutaneous pen injector RxNorm: 804322 1.8 Milligram(s) SQ daily 12/17/201602/07 Inactive Victoza 3-Dariusz 0.6 mg/0.1 mL (18 mg/3 mL) subcutaneous pen injector RxNorm: 363080 Milligram(s) SQ 12/17/2016 02/07/2017 Inactive Zetia 10 mg tablet RxNorm: 830287 1 Tablet(s) PO daily 201611/11/2017 Inactive fluticasone 50 mcg/actuation nasal spray,suspension RxNorm: 7305479 [place] NASAL ONE SPRAY IN EACH NOSTRIL TWICE DAILY 09/28/2016 04/25/2017 Inactive Victoza 2-Dariusz 0.6 mg/0.1 mL (18 mg/3 mL) subcutaneous pen injector RxNorm: 451520 1.2 Milligram(s) SQ daily 09/14/201612/16 Inactive Lexapro 5 mg tablet RxNorm: 784739 1 Tablet(s) PO QHS 201612/12/2016 Inactive metformin 500 mg tablet RxNorm: 222741 1 Tablet(s) PO UD 1.5 in morning, noon and 1 at bedtime 09/08/2016 09/02/2017 Inactive glimepiride 4 mg tablet RxNorm: 161825 TAKE 1 TABLET BY MOUTH ONCE DAILY 07/31/2016 09/13/2016 Inactive Generic For:*AMARYL 4MG 07/31/2016 9:02:38 AM Victoza 2-Dariusz 0.6 mg/0.1 mL (18 mg/3 mL) subcutaneous pen injector RxNorm: 732656 1.2 Milligram(s) SQ daily 05/18/201609/13 Inactive Victoza 2-Dariusz 0.6 mg/0.1 mL (18 mg/3 mL) subcutaneous pen injector RxNorm: 287690 1.2 Milligram(s) SQ daily 04/16/201605/17 Inactive levothyroxine 50 mcg tablet RxNorm: 492501 TAKE 1 TABLET BY MOUTH ONCE DAILY 04/08/2016 12/03/2016 Inactive Generic For:SYNTHROID 50MCG TAB 04/08/2016 9:05:40 AM levothyroxine 50 mcg tablet RxNorm: 776304 1 Tablet(s) PO daily TAKE 1 TABLET BY MOUTH ONCE DAILY 04/08/2016 12/03/2016 Inactive Generic For:SYNTHROID 50MCG TAB N O T I C E PRESCRIPTION PREVIOUSLY AUTHORIZED BY DOCTOR:HENRY BAIG bisoprolol 5 mg-hydrochlorothiazide 6.25 mg tablet RxNorm: 022659 1 Tablet(s) PO BID 03/23/2016 03/17/2017 Inactive Victoza 2-Dariusz 0.6 mg/0.1 mL (18 mg/3 mL) subcutaneous pen injector RxNorm: 359082 0.6 Milligram(s) SQ daily 03/19/201604/15 Inactive Lexapro 5 mg tablet RxNorm: 055568 1 Tablet(s) PO QHS 201606/16/2016 Inactive gabapentin 600 mg tablet RxNorm: 891986 1 Capsule(s) PO TID 07/201601/26/2017 Inactive glimepiride 4 mg tablet RxNorm: 098838 1 Tablet(s) PO daily 06/05/2016 Inactive Victoza 3-Dariusz 0.6 mg/0.1 mL (18 mg/3 mL) subcutaneous pen injector RxNorm: 626819 0.6 Milligram(s) SQ daily x2 weeks, then 1.2 mg SQ daily 03/18/2016 Inactive metformin 500 mg tablet RxNorm: 524515 1 Tablet(s) PO UD 1.5 in morning, noon and 1 at bedtime 08/14/2015 08/07/2016 Inactive gabapentin 600 mg tablet RxNorm: 643964 1 Capsule(s) PO TID SHE IS ONLY TAKING 1 QD 08/14/2015 03/18/2016 Inactive fluticasone 50 mcg/actuation nasal spray,suspension RxNorm: 032639 [place] NASAL ONE SPRAY IN EACH NOSTRIL TWICE DAILY 07/26/2015 07/25/2015 Inactive fluticasone 50 mcg/actuation nasal spray,suspension RxNorm: 1396242 [place] NASAL ONE SPRAY IN EACH NOSTRIL TWICE DAILY 07/26/2015 02/20/2016 Inactive bisoprolol 5 mg-hydrochlorothiazide 6.25 mg tablet RxNorm: 135245 1 Tablet(s) PO daily 1 Tablet(s) PO BID 07/17/20152015 Inactive metformin 500 mg tablet RxNorm: 521836 1 Tablet(s) PO TID 1 Tablet(s) PO TID 07/17/2015 08/13/2015 Inactive Diflucan 100 mg tablet RxNorm: 718907 1 Tablet(s) PO daily 06/201507/21/2015 Inactive Zetia 10 mg tablet RxNorm: 352356 1 Tablet(s) PO daily 201506/03/2016 Inactive bisoprolol 5 mg-hydrochlorothiazide 6.25 mg tablet RxNorm: 478461 1 Tablet(s) PO BID 04/18/2015 07/16/2015 Inactive metformin 500 mg tablet RxNorm: 696422 1 Tablet(s) PO TID 03/0106/28/2015 Inactive glimepiride 4 mg tablet RxNorm: 002023 1 Tablet(s) PO daily 01/30/2015 Inactive levothyroxine 50 mcg tablet RxNorm: 933090 TAKE 1 TABLET BY MOUTH ONCE DAILY 01/31/2015 09/27/2015 Inactive Generic For:SYNTHROID 50MCG TAB N O T I C E PRESCRIPTION PREVIOUSLY AUTHORIZED BY DOCTOR:HENRY BAIG glimepiride 4 mg tablet RxNorm: 969323 1 Tablet(s) PO daily 07/29/2015 Inactive Invokana 100 mg tablet RxNorm: 1986077 1 Tablet(s) PO daily 07/16/2015 Inactive bisoprolol 5 mg-hydrochlorothiazide 6.25 mg tablet RxNorm: 724361 1 Tablet(s) PO BID 08/27/2014 02/22/2015 Inactive metformin 500 mg tablet RxNorm: 608431 1 Tablet(s) PO TID 08/1012/07/2014 Inactive metformin 500 mg tablet RxNorm: 016008 1 Tablet(s) PO TID 08/1008/09/2014 Inactive Fish Oil 1,000 mg capsule RxNorm: 1 Capsule(s) PO daily No Start Date Active Protonix 40 mg tablet,delayed release RxNorm: 165495 1 Tablet(s) PO QAM No Start Date Active furosemide 40 mg tablet RxNorm: 224415 1 Tablet(s) PO daily No Start Date Active pen needle, diabetic 31 gauge x 1/6" RxNorm: Miscellaneous No Start Date Active nitroglycerin 0.4 mg sublingual tablet RxNorm: 056379 1 Tablet(s) SL as needed chest pain No Start Date Active amlodipine 5 mg tablet RxNorm: 234897 1 Tablet(s) PO daily No Start Date Active Entresto 24 mg-26 mg tablet RxNorm: 8428575 1 Tablet(s) PO BID No Start Date Active aspirin 81 mg chewable tablet RxNorm: 062889 1 Tablet(s) PO daily No Start Date 06/02/2017 Inactive Eliquis 5 mg tablet RxNorm: 6903658 1 Tablet(s) PO BID No Start Date 01/26/2018 Inactive bisoprolol-hydrochlorothiazide oral RxNorm: 89251 oral No Start Date 08/26/2014 Inactive levothyroxine 50 mcg tablet RxNorm: 060447 1 Tablet(s) PO daily No Start Date 01/30/2015 Inactive potassium chloride ER 20 mEq tablet,extended release RxNorm: 951656 1 Tablet(s) PO daily No Start Date 06/21/2017 Inactive digoxin 250 mcg tablet RxNorm: 910054 1 Tablet(s) PO daily No Start Date 01/26/2018 Inactive Invokana 100 mg tablet RxNorm: 5773135 1 Tablet(s) PO daily No Start Date 12/11/2014 Inactive Victoza 3-Dariusz 0.6 mg/0.1 mL (18 mg/3 mL) subcutaneous pen injector RxNorm: 682621 0.6 Milligram(s) SQ daily x2 weeks, then 1.2 mg SQ daily No Start Date 12/01/2015 Inactive Effient 10 mg tablet RxNorm: 245829 1 Tablet(s) PO QAM No Start Date 01/26/2018 Inactive Zetia 10 mg tablet RxNorm: 495669 1 Tablet(s) PO BID No Start Date 03/18/2016 Inactive metoprolol succinate ER 100 mg tablet,extended release 24 hr RxNorm: 781170 1 Tablet(s) PO daily No Start Date 2017 Inactive gabapentin 300 mg capsule RxNorm: 310450 1 Capsule(s) PO BID No Start Date 08/13/2015 Inactive Lasix 40 mg tablet RxNorm: 835428 1 Tablet(s) PO BID No Start Date 04/14/2017 Inactive Coreg 3.125 mg tablet RxNorm: 877353 1 Tablet(s) PO BID with meals No Start Date 06/02/2017 Inactive Medication Administered No Medication Administered data Immunizations Vaccine Codes Date Status Influenza CVX: 141 11/25/2017 completed Influenza CVX: 141 12/17/2016 completed Influenza CVX: 141 11/14/2015 completed Influenza CVX: 141 12/04/2014 completed Assessments Condition Codes Effective Dates Essential (primary) hypertension ICD-10: I10 ICD-9: 401.1 [...] 04/15/2017 stress test and then shipped to [facility] Follow Up 03/19/2017 stress test and then shipped to [facility] diabetes mellitus 02/03/2017 headache 01/07/2017 diabetes mellitus 12/17/2016 diabetes mellitus 09/14/2016 diabetes mellitus 06/18/2016 medication follow up 04/16/2016 back pain 03/19/2016 back pain 11/14/2015 back pain 08/14/2015 diabetes mellitus 07/17/2015 Hospital Follow Up 03/25/2015 diabetes mellitus 12/04/2014 diabetes mellitus 08/14/2014 Results Observation Observation Code Item Item Code Result Date %Hba1C Hxm946 % HbA1c 26772-1 6.8 % 01/12/2018 %Hba1C Diz354 Gluc Ave 148 mg/dL 01/12/2018 Metabolic Ord15 [...] 57.6 % 01/11/2018 Cbc With Differential Ord2 MCV 89.9 fl 01/11/2018 Cbc With Differential Ord2 Lymph% 31.7 % 01/11/2018 Cbc With Differential Ord2 Morrison% 7.8 % 01/11/2018 Cbc With Differential Ord2 [...] 1.70 K/ul 01/11/2018 Cbc With Differential Ord2 Morrison ABS# 0.4 K/ul 01/11/2018 Cbc With Differential Ord2 Eos ABS# 0.1 K/ul 01/11/2018 Cbc With Differential Ord2 Baso ABS# 0.0 K/ul 01/11/2018 Magnesium Ord90 Mag 1.7 mg/dL 01/11/2018 Test(s) Not Perfromed [id number] Test(s) Not Performed Test(s) Not Performed. See Below: 09/20/2017 Test(s) Not Perfromed [id number] TEST NAME BNP 09/20/2017 Test(s) Not Perfromed [id number] Rejection Reason Patient Refused due to lack of coving diganosis 09/20/2017 Test(s) Not Perfromed [id number] COMMENT Dorita Notified 09/20 Test(s) Not Perfromed [id number] [employer] Miguel Mclaughlin 2017 B Type Natriuretic Peptide Iss7283 B-AUDIO INSTALLER 889.00 pg/ml 2017 Cbc With Differential Ord2 [...] 28.9 pg 09/20/2017 Cbc With Differential Ord2 Morrison% 5.6 % 09/20/2017 Cbc With Differential Ord2 MCHC 32.0 pg 09/20/2017 Cbc With Differential Ord2 Eos% 2.1 % 09/20/2017 Cbc With Differential Ord2 Baso% 0.5 % 09/20/2017 Cbc With Differential Ord2 PLT 350 K/ul 09/20/2017 Cbc With Differential Ord2 Neut ABS# 3.57 K/ul 09/20/2017 Cbc With Differential Ord2 RDW 14.4 % 09/20/2017 Cbc With Differential Ord2 Lymph ABS# 1.68 K/ul 09/20/2017 Cbc With Differential Ord2 Morrison ABS# 0.3 K/ul 09/20/2017 Cbc With Differential Ord2 Eos ABS# 0.1 K/ul 09/20/2017 Cbc With Differential Ord2 Baso ABS# 0.0 K/ul 09/20/2017 %Hba1C Rfh304 % HbA1c 45208-9 7.9 % 09/20/2017 %Hba1C Vah391 Gluc Ave 180 mg/dL 09/20/2017 Magnesium Ord90 Mag 1.7 mg/dL 07/07/2017 Sed Rate Ord21 ESR 14 mm/hr 07/07/2017 Cbc With Differential Ord2 WBC 4.53 K/ul 07/07/2017 Cbc With Differential Ord2 RBC 3.75 M/ul 07/07/2017 Cbc With Differential Ord2 HGB 10.6 g/dl 07/07/2017 Cbc With Differential Ord2 HCT 33.2 % 07/07/2017 Cbc With Differential Ord2 Neut% 59.6 % 07/07/2017 Cbc With Differential Ord2 Lymph% 29.6 % 07/07/2017 Cbc With Differential Ord2 MCV 88.5 fl 07/07/2017 Cbc With Differential Ord2 Morrison% 7.9 % 07/07/2017 Cbc With Differential Ord2 MCH 28.3 pg 07/07/2017 Cbc With Differential Ord2 MCHC 31.9 pg 07/07/2017 Cbc With Differential Ord2 Eos% 2.2 % 07/07/2017 Cbc With Differential Ord2 PLT 278 K/ul 07/07/2017 Cbc With Differential Ord2 Baso% 0.7 % 07/07/2017 Cbc With Differential Ord2 Neut ABS# 2.70 K/ul 07/07/2017 Cbc With Differential Ord2 RDW 15.7 % 07/07/2017 Cbc With Differential Ord2 Lymph ABS# 1.34 K/ul 07/07/2017 Cbc With Differential Ord2 Morrison ABS# 0.4 K/ul 07/07/2017 Cbc With Differential Ord2 Eos ABS# 0.1 K/ul 07/07/2017 Cbc With Differential Ord2 Baso ABS# 0.0 K/ul 07/07/2017 Comp Metabolic Zcs808 NA 142 mEq/L 07/07/2017 Comp Metabolic Oyd897 K 4.3 mEq/L 07/07/2017 Comp Metabolic Qnu153 CL 105 mEq/L 07/07/2017 Comp Metabolic Kwt344 CO2 28.0 mEq/L 07/07/2017 Comp Metabolic Fkr247 ANION GAP 13 07/07/2017 Comp Metabolic Pql847 GLUCOSE 197 mg/dL 07/07/2017 Comp Metabolic Lmf866 Creat 1.1 mg/dL 07/07/2017 Comp Metabolic Gpl387 eGFR 51 ml/min/1.73m2 07/07/2017 Comp Metabolic Oof544 BUN 21 mg/dL 07/07/2017 Comp Metabolic Wby409 B/C Ratio 18.9 Ratio 07/07/2017 Comp Metabolic Mfh098 CALCIUM 8.9 mg/dL 07/07/2017 Comp Metabolic Cnd187 ALK PHOS 51 U/L 07/07/2017 Comp Metabolic Qog397 AST(SGOT) 11 U/L 07/07/2017 Comp Metabolic Yzh072 ALT(SGPT) 11 U/L 07/07/2017 Comp Metabolic Ydi732 BILI T 0.3 mg/dL 07/07/2017 Comp Metabolic Xwe651 ALBUMIN 4.2 g/dL 07/07/2017 Comp Metabolic Bvr171 TPRO 6.0 g/dL 07/07/2017 Comp Metabolic Qdq062 GLOB 1.8 g/dL 07/07/2017 Comp Metabolic Fsv278 A/G Ratio 2.3 Ratio 07/07/2017 Comp Metabolic Fsp628 Osmo 292 mOsmo 07/07/2017 Digoxin Ord9 DIGOXIN 1.3 NG/ML 07/07/2017 Tsh Ord6 TSH (3rd IS) 2.19 uIU/mL 07/07/2017 B Type Natriuretic Peptide Fhi4864 B-AUDIO INSTALLER 801.00 pg/ml 2017 Culture Urine [id number] URINE CULTURE SEE NOTES 04/19/2017 Culture Urine [id number] Continued Results 04/19/2017 Urine Culture Ucult Complete >100,000 col/ml aerobic growth sent to ref lab 04/16/2017 Comp Metabolic Fih947 NA 140 mEq/L 01/26/2017 Comp Metabolic Iuu168 K 4.6 mEq/L 01/26/2017 Comp Metabolic Vgz845 CL 102 mEq/L 01/26/2017 Comp Metabolic Abf154 CO2 28.0 mEq/L 01/26/2017 Comp Metabolic Wxb957 ANION GAP 15 01/26/2017 Comp Metabolic Aak653 GLUCOSE 173 mg/dL 01/26/2017 Comp Metabolic Nad067 Creat 1.0 mg/dL 01/26/2017 Comp Metabolic Syl006 eGFR 56 ml/min/1.73m2 01/26/2017 Comp Metabolic Ahk974 BUN 23 mg/dL 01/26/2017 Comp Metabolic Ksq363 B/C Ratio 22.5 Ratio 01/26/2017 Comp Metabolic Chl545 CALCIUM 9.4 mg/dL 01/26/2017 Comp Metabolic Vmh990 ALK PHOS 52 U/L 01/26/2017 Comp Metabolic Nft545 AST(SGOT) 12 U/L 01/26/2017 Comp Metabolic Eui316 ALT(SGPT) 12 U/L 01/26/2017 Comp Metabolic Bub528 BILI T 0.5 mg/dL 01/26/2017 Comp Metabolic Bei860 ALBUMIN 4.4 g/dL 01/26/2017 Comp Metabolic Eoe035 TPRO 6.5 g/dL 01/26/2017 Comp Metabolic Jsz871 GLOB 2.1 g/dL 01/26/2017 Comp Metabolic Exo808 A/G Ratio 2.1 Ratio 01/26/2017 Comp Metabolic Flp744 Osmo 287 mOsmo 01/26/2017 Cbc With Differential [...] 23.6 % 01/26/2017 Cbc With Differential Ord2 Morrison% 4.9 % 01/26/2017 Cbc With Differential Ord2 MCH 29.2 pg 01/26/2017 Cbc With Differential Ord2 MCHC 32.9 pg 01/26/2017 Cbc With Differential Ord2 Eos% 1.1 % 01/26/2017 Cbc With Differential Ord2 Baso% 0.5 % 01/26/2017 Cbc With Differential Ord2 PLT 345 K/ul 01/26/2017 Cbc With Differential Ord2 Neut ABS# 5.17 K/ul 01/26/2017 Cbc With Differential Ord2 RDW 14.3 % 01/26/2017 Cbc With Differential Ord2 Lymph ABS# 1.75 K/ul 01/26/2017 Cbc With Differential Ord2 Morrison ABS# 0.4 K/ul 01/26/2017 Cbc With Differential Ord2 Eos ABS# 0.1 K/ul 01/26/2017 Cbc With Differential Ord2 Baso ABS# 0.0 K/ul 01/26/2017 %Hba1C Hud714 % HbA1c 61108-1 7.8 % 01/26/2017 %Hba1C Kee250 Gluc Ave 177 mg/dL 01/26/2017 Lipid Ord30 CHOL 239 mg/dL 01/26/2017 Lipid Ord30 HDL 40.0 mg/dl 01/26/2017 Lipid Ord30 TRIG 325 mg/dL 01/26/2017 Lipid Ord30 LDL 134 mg/dL 01/26/2017 Lipid Ord30 C/HDL 6.0 Ratio 01/26/2017 Free T4 Icd126 FREE T4 0.95 ng/dL 01/26/2017 Tsh Ord6 [...] Metabolic Ord15 CALCIUM 9.0 mg/dL 09/08/2016 %Hba1C Rvg844 % HbA1c 79840-2 7.5 % 09/08/2016 %Hba1C Dyd740 Gluc Ave 169 mg/dL 09/08/2016 Tsh Ord6 hTSH II 2.64 uIU/mL 03/13/2016 %Hba1C Rtw088 % HbA1c 51308-8 8.2 % 03/13/2016 %Hba1C Mzb366 Gluc Ave 189 mg/dL 03/13/2016 Lipid Ord30 CHOL 233 mg/dL 03/13/2016 Lipid Ord30 HDL 46.0 mg/dl 03/13/2016 Lipid Ord30 TRIG 276 mg/dL 03/13/2016 Lipid Ord30 LDL 132 mg/dL 03/13/2016 Lipid Ord30 C/HDL 5.1 Ratio 03/13/2016 Free T4 Ksh218 FREE T4 0.94 ng/dL 03/13/2016 Cbc With [...] 29.5 % 03/13/2016 Cbc With Differential Ord2 Morrison% 6.1 % 03/13/2016 Cbc With Differential Ord2 MCH 30.3 pg 03/13/2016 Cbc With Differential Ord2 Eos% 1.8 % 03/13/2016 Cbc With Differential Ord2 MCHC 33.2 pg 03/13/2016 Cbc With Differential Ord2 PLT 304 K/ul 03/13/2016 Cbc With Differential Ord2 Baso% 0.5 % 03/13/2016 Cbc With Differential Ord2 Neut ABS# 3.43 K/ul 03/13/2016 Cbc With Differential Ord2 RDW 14.4 % 03/13/2016 Cbc With Differential Ord2 Lymph ABS# 1.63 K/ul 03/13/2016 Cbc With Differential Ord2 Morrison ABS# 0.3 K/ul 03/13/2016 Cbc With Differential Ord2 Eos ABS# 0.1 K/ul 03/13/2016 Cbc With Differential Ord2 Baso ABS# 0.0 K/ul 03/13/2016 Comp Metabolic Lou070 NA 139 mEq/L 03/13/2016 Comp Metabolic Snk774 K 4.3 mEq/L 03/13/2016 Comp Metabolic Sov681 CL 103 mEq/L 03/13/2016 Comp Metabolic Two700 CO2 28.0 mEq/L 03/13/2016 Comp Metabolic Sxc150 ANION GAP 12 03/13/2016 Comp Metabolic Jsm372 GLUCOSE 200 mg/dL 03/13/2016 Comp Metabolic Dap267 Creat 0.9 mg/dL 03/13/2016 Comp Metabolic Rlo307 eGFR 69 ml/min/1.73m2 03/13/2016 Comp Metabolic Utj484 BUN 19 mg/dL 03/13/2016 Comp Metabolic Kux719 B/C Ratio 22.4 Ratio 03/13/2016 Comp Metabolic Ytk574 CALCIUM 9.0 mg/dL 03/13/2016 Comp Metabolic Ipd097 ALK PHOS 57 U/L 03/13/2016 Comp Metabolic Ncw224 AST(SGOT) 13 U/L 03/13/2016 Comp Metabolic Qzc393 ALT(SGPT) 16 U/L 03/13/2016 Comp Metabolic Pgj080 BILI T 0.4 mg/dL 03/13/2016 Comp Metabolic Nju984 ALBUMIN 4.2 g/dL 03/13/2016 Comp Metabolic Dgb054 TPRO 6.3 g/dL 03/13/2016 Comp Metabolic Bhq578 GLOB 2.1 g/dL 03/13/2016 Comp Metabolic Zkh679 A/G Ratio 2.0 Ratio 03/13/2016 Comp Metabolic Bmj213 Osmo 285 mOsmo 03/13/2016 %Hba1C Wrx111 % HbA1c 89716-8 8.3 % 11/14/2015 %Hba1C Xbd248 Gluc Ave 192 mg/dL 11/14/2015 Lipid Ord30 CHOL 210 mg/dL 07/19/2015 Lipid Ord30 HDL 43.0 mg/dl 07/19/2015 Lipid Ord30 TRIG 311 mg/dL 07/19/2015 Lipid Ord30 LDL 105 mg/dL 07/19/2015 Lipid Ord30 C/HDL 4.9 Ratio 07/19/2015 %Hba1C Qfk777 % HbA1c 57495-8 7.6 % 07/19/2015 %Hba1C Sex408 Gluc Ave 171 mg/dL 07/19/2015 Cbc With [...] 30.3 % 07/19/2015 Cbc With Differential Ord2 Morrison% 6.1 % 07/19/2015 Cbc With Differential Ord2 [...] 1.63 K/ul 07/19/2015 Cbc With Differential Ord2 Morrison ABS# 0.3 K/ul 07/19/2015 Cbc With Differential Ord2 Eos ABS# 0.1 K/ul 07/19/2015 Cbc With Differential Ord2 Baso ABS# 0.0 K/ul 07/19/2015 Cbc With Differential Ord2 New Analyzer Notice Please note new ref ranges starting 03-27-2015 due to implemntation of new five part differential hematolgy analyzer. 07/19/2015 Comp Metabolic Cht725 NA 138 mEq/L 07/19/2015 Comp Metabolic Tkk496 K 4.3 mEq/L 07/19/2015 Comp Metabolic Pwe864 CL 100 mEq/L 07/19/2015 Comp Metabolic Ttr418 CO2 33.0 mEq/L 07/19/2015 Comp Metabolic Fim553 ANION GAP 9 07/19/2015 Comp Metabolic Xpx995 GLUCOSE 149 mg/dL 07/19/2015 Comp Metabolic Jxk464 Creat 0.9 mg/dL 07/19/2015 Comp Metabolic Jei643 eGFR 62 ml/min/1.73m2 07/19/2015 Comp Metabolic Vim490 BUN 19 mg/dL 07/19/2015 Comp Metabolic Hpr083 B/C Ratio 20.2 Ratio 07/19/2015 Comp Metabolic Ohf153 CALCIUM 9.5 mg/dL 07/19/2015 Comp Metabolic Get093 ALK PHOS 52 U/L 07/19/2015 Comp Metabolic Noo960 AST(SGOT) 15 U/L 07/19/2015 Comp Metabolic Djo790 ALT(SGPT) 14 U/L 07/19/2015 Comp Metabolic Tog269 BILI T 0.5 mg/dL 07/19/2015 Comp Metabolic Hzh720 ALBUMIN 4.4 g/dL 07/19/2015 Comp Metabolic Vlg880 TPRO 6.4 g/dL 07/19/2015 Comp Metabolic Yqk552 GLOB 2.0 g/dL 07/19/2015 Comp Metabolic Fud752 A/G Ratio 2.2 Ratio 07/19/2015 Comp Metabolic Eer560 Osmo 281 mOsmo 07/19/2015 Free T4 Hjv759 FREE T4 0.92 ng/dL 07/19/2015 Tsh Ord6 hTSH II 1.95 uIU/mL 07/19/2015 Microalbumin Gni126 MicroAlb 0.4 mg/dL 07/19/2015 Comp Metabolic Lcv111 NA 137 mEq/L 12/04/2014 Comp Metabolic Uqp613 K 4.0 mEq/L 12/04/2014 Comp Metabolic Qkd282 CL 100 mEq/L 12/04/2014 Comp Metabolic Luk406 CO2 29.0 mEq/L 12/04/2014 Comp Metabolic Oup066 ANION GAP 12 12/04/2014 Comp Metabolic Vre368 GLUCOSE 171 mg/dL 12/04/2014 Comp Metabolic Cbg671 Creat 1.0 mg/dL 12/04/2014 Comp Metabolic Tvy414 eGFR 60 ml/min/1.73m2 12/04/2014 Comp Metabolic Sxw987 BUN 25 mg/dL 12/04/2014 Comp Metabolic Jds494 B/C Ratio 25.8 Ratio 12/04/2014 Comp Metabolic Nof242 CALCIUM 9.4 mg/dL 12/04/2014 Comp Metabolic Dro677 ALK PHOS 60 U/L 12/04/2014 Comp Metabolic Zok658 AST(SGOT) 13 U/L 12/04/2014 Comp Metabolic Dkc839 ALT(SGPT) 17 U/L 12/04/2014 Comp Metabolic Uoa079 BILI T 0.4 mg/dL 12/04/2014 Comp Metabolic Ryn749 ALBUMIN 4.4 g/dL 12/04/2014 Comp Metabolic Cmk243 TPRO 6.9 g/dL 12/04/2014 Comp Metabolic Snu102 GLOB 2.5 g/dL 12/04/2014 Comp Metabolic Cfj820 A/G Ratio 1.8 Ratio 12/04/2014 Comp Metabolic Ixo113 Osmo 282 mOsmo 12/04/2014 Tsh Ord6 hTSH II 1.78 uIU/mL 12/04/2014 %Hba1C Wxn767 % HbA1c 28126-1 8.3 % 12/04/2014 %Hba1C Yxh305 Gluc Ave 192 mg/dL 12/04/2014 Free T4 Gov695 FREE T4 0.85 ng/dL 12/04/2014 Lipid Ord30 [...] kyphosis 08/14/2014 None Procedures Procedure Codes Date ADMIN INFLUENZA VIRUS VAC CPT-4: G0008 11/25/2017 FLU VAC NO PRSV 4 ANABELLE 3 YRS+ CPT-4: 46689 11/25/2017 GLUC MONITOR CONT PHYS I&R CPT-4: 84501 10/26/2017 GLUCOSE MONITORING CONT CPT-4: 67116 10/11/2017 URINALYSIS NONAUTO W/O SCOPE CPT-4: 56769 04/15/2017 FLU VAC NO PRSV 4 ANABELLE 3 YRS+ CPT-4: 69524 12/17/2016 ADMIN INFLUENZA VIRUS VAC CPT-4: G0008 12/17/2016 FLU VACC PRSV FREE INC ANTIG Formatting Model/CDA Sections, Assigned to/Nery Daniels CPT-4: [id number] 11/14/2015 ADMIN INFLUENZA VIRUS VAC CPT-4: G0008 11/14/2015 ADMIN INFLUENZA VIRUS VAC Formatting Model/CDA Sections, Assigned to/Nery Daniels CPT-4: [id number] 12/04/2014 FLU VACC 4 ANABELLE 3 YRS PLUS IM SNOMED CT: [id number] CPT-4: 19614 12/04/2014 Vital Signs Date Vital 01/27/2018 Blood Pressure 1: 142/70 Code : 8480-6 BMI: 29.5 Code : 30549-5 Heart Rate 1 : 61 bpm Height: 5' SpO2: 99% Weight: 151 lbs 11/25/2017 Blood Pressure 1: 148/72 Code : 8480-6 BMI: 30.9 Code : 51334-3 Heart Rate 1 : 62 bpm Height: 5' SpO2: 98% Weight: 158 lbs 10/26/2017 Blood Pressure 1: 156/74 Code : 8480-6 BMI: 31.2 Code : 25535-8 Heart Rate 1 : 71 bpm Height: 5' SpO2: 98% Weight: 160 lbs 10/11/2017 Blood Pressure 1: 128/70 Code : 8480-6 BMI: 30.9 Code : 85813-8 Heart Rate 1 : 70 bpm Height: 5' SpO2: 95% Weight: 158 lbs 09/22/2017 Blood Pressure 1: 110/52 Code : 8480-6 BMI: 30.9 Code : 85996-9 Heart Rate 1 : 72 bpm Height: 5' SpO2: 99% Weight: 158 lbs 07/06/2017 Blood Pressure 1: 120/85 Code : 8480-6 BMI: 31.4 Code : 48009-8 Heart Rate 1 : 74 bpm Height: 5' SpO2: 92% Weight: 161 lbs 06/03/2017 Blood Pressure 1: 120/62 Code : 8480-6 BMI: 31.1 Code : 84739-9 Heart Rate 1 : 73 bpm Height: 5' SpO2: 99% Weight: 159 lbs 05/12/2017 Blood Pressure 1: 132/68 Code : 8480-6 BMI: 32.4 Code : 63055-9 Heart Rate 1 : 95 bpm Height: 5' SpO2: 97% Weight: 166 lbs 04/15/2017 Blood Pressure 1: 128/84 Code : 8480-6 BMI: 32.4 Code : 41548-1 Heart Rate 1 : 62 bpm Height: 5' SpO2: 97% Weight: 166 lbs 03/19/2017 Blood Pressure 1: 112/60 Code : 8480-6 BMI: 32.0 Code : 78808-9 Height: 5' Weight: 164 lbs 02/03/2017 Blood Pressure 1: 128/76 Code : 8480-6 BMI: 33.4 Code : 13180-8 Heart Rate 1 : 91 bpm Height: 5' SpO2: 99% Weight: 171 lbs 01/07/2017 Blood Pressure 1: 126/74 Code : 8480-6 BMI: 34.2 Code : 21625-1 Heart Rate 1 : 83 bpm Height: 5' SpO2: 97% Weight: 175 lbs 12/17/2016 Blood Pressure 1: 122/72 Code : 8480-6 BMI: 34.0 Code : 46028-5 Heart Rate 1 : 78 bpm Height: 5' SpO2: 97% Weight: 174 lbs 09/14/2016 Blood Pressure 1: 128/86 Code : 8480-6 BMI: 33.8 Code : 61839-2 Heart Rate 1 : 88 bpm Height: 5' SpO2: 96% Weight: 173 lbs 06/18/2016 Blood Pressure 1: 122/74 Code : 8480-6 BMI: 34.8 Code : 60633-7 Heart Rate 1 : 78 bpm Height: 5' SpO2: 98% Weight: 178 lbs 04/16/2016 Blood Pressure 1: 134/68 Code : 8480-6 BMI: 35.0 Code : 51204-0 Heart Rate 1 : 67 bpm Height: 5' SpO2: 97% Weight: 179 lbs 03/19/2016 Blood Pressure 1: 132/74 Code : 8480-6 BMI: 34.6 Code : 76480-7 Heart Rate 1 : 74 bpm Height: 5' SpO2: 97% Weight: 177 lbs 11/14/2015 Blood Pressure 1: 132/70 Code : 8480-6 BMI: 35.2 Code : 52299-5 Heart Rate 1 : 68 bpm Height: 5' Weight: 180 lbs 08/14/2015 Blood Pressure 1: 122/74 Code : 8480-6 BMI: 33.8 Code : 83720-7 Heart Rate 1 : 73 bpm Height: 5' SpO2: 93% Weight: 173 lbs 07/17/2015 Blood Pressure 1: 138/78 Code : 8480-6 BMI: 34.0 Code : 46343-1 Heart Rate 1 : 85 bpm Height: 5' SpO2: 97% Weight: 174 lbs 03/25/2015 Blood Pressure 1: 130/78 Code : 8480-6 BMI: 33.2 Code : 68789-6 Heart Rate 1 : 77 bpm Height: 5' SpO2: 97% Weight: 170 lbs 12/04/2014 Blood Pressure 1: 120/74 Code : 8480-6 BMI: 35.4 Code : 76548-5 Heart Rate 1 : 67 bpm Height: 5' SpO2: 94% Weight: 181 lbs 5 oz 08/14/2014 Blood Pressure 1: 132/68 Code : 8480-6 BMI: 32.1 Code : 75055-7 Heart Rate 1 : 62 bpm Height: [...] data Encounters Encounter Performer Location Codes Date ([id number]) 00771 EST. PATIENT, LEVEL IV Diagnosis: Type 2 diabetes mellitus with hyperglycemia[ICD10: E11.65] Diagnosis: Essential (primary) hypertension[ICD10: I10] Diagnosis: Major depressive disorder, recurrent, mild[ICD10: F33.0] Diagnosis: Generalized anxiety disorder[ICD10: F41.1] [facility] CPT-4: 94137 01/27/2018 ([id number]) 30436 EST. PATIENT, LEVEL IV Diagnosis: Type 2 diabetes mellitus with hyperglycemia[ICD10: E11.65] Diagnosis: Essential (primary) hypertension[ICD10: I10] Diagnosis: Encounter for immunization[ICD10: Z23] Diagnosis: Carpal tunnel syndrome, left upper limb[ICD10: G56.02] [facility] CPT-4: 62520 11/25/2017 ([id number]) 09017 EST. PATIENT, LEVEL III Diagnosis: Type 2 diabetes mellitus with hyperglycemia[ICD10: E11.65] [facility] CPT-4: 70872 10/26/2017 ([id number]) Miscellaneous no charge Diagnosis: Type 2 diabetes mellitus with hyperglycemia[ICD10: E11.65] Claudia Nicole MD, [facility] CPT-4: 43353 10/18/2017 ([id number]) 91176 EST. 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 PATIENT, LEVEL IV Diagnosis: Type 2 diabetes mellitus with hyperglycemia[ICD10: E11.65] Diagnosis: Paroxysmal atrial fibrillation[ICD10: I48.0] Diagnosis: Essential (primary) hypertension[ICD10: I10] Mila Nicole MD, [facility] CPT-4: 13093 07/06/2017 ([id number]) 57585 EST. PATIENT, LEVEL IV Diagnosis: Essential (primary) hypertension[ICD10: I10] Diagnosis: Type 2 diabetes mellitus with hyperglycemia[ICD10: E11.65] Diagnosis: Paroxysmal atrial fibrillation[ICD10: I48.0] Claudia Nicole MD, [facility] CPT-4: 92137 06/03/2017 [id number] EST. PATIENT, LEVEL III Diagnosis: Generalized anxiety disorder[ICD10: F41.1] Diagnosis: Major depressive disorder, recurrent, moderate[ICD10: F33.1] Diagnosis: Paroxysmal tachycardia, unspecified[ICD10: I47.9] Gardenia Nicole MD, [facility] CPT-4: 01290 05/12/2017 ([id number]) 11054 EST. PATIENT, LEVEL IV Diagnosis: Essential (primary) hypertension[ICD10: I10] Diagnosis: Cough[ICD10: R05] Diagnosis: Dysuria[ICD10: R30.0] Mila Nicole MD, [facility] CPT-4: 41855 04/15/2017 ([id number]) 54349 EST. PATIENT, LEVEL IV Diagnosis: Type 2 diabetes mellitus with hyperglycemia[ICD10: E11.65] Diagnosis: Essential (primary) hypertension[ICD10: I10] Mila Nicole MD, [facility] CPT-4: 34563 03/19/2017 ([id number] 54230 EST. PATIENT, LEVEL III Diagnosis: Type 2 diabetes mellitus with hyperglycemia[ICD10: E11.65] Mila Nicole MD [facility] CPT-4: 24569 02/03/2017 96313 EST. PATIENT, LEVEL IV Diagnosis: Generalized anxiety disorder[ICD10: F41.1] Diagnosis: Type 2 diabetes mellitus with hyperglycemia[ICD10: E11.65] Diagnosis: Essential (primary) hypertension[ICD10: I10] Gardenia Nicole MD [facility] CPT-4: 39014 01/07/2017 [id number]) 71680 EST. PATIENT, LEVEL III Diagnosis: Type 2 diabetes mellitus with hyperglycemia[ICD10: E11.65] Diagnosis: Encounter for immunization[ICD10: Z23] Mila Nicole MD [facility] CPT-4: 43622 12/17/2016 ([id number]) 80466 EST. PATIENT, LEVEL IV Diagnosis: Type 2 diabetes mellitus with hyperglycemia[ICD10: E11.65] Diagnosis: Essential (primary) hypertension[ICD10: I10] Diagnosis: Major depressive disorder, recurrent, mild[ICD10: F33.0] Mila Nicole MD [facility] CPT-4: 82666 09/14/2016 ([id number]) 16995 EST. 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 PATIENT, LEVEL IV Diagnosis: Type 2 diabetes mellitus with hyperglycemia[ICD10: E11.65] Diagnosis: Essential (primary) hypertension[ICD10: I10] Mila Nicole MD [facility] CPT-4: 19398 04/16/2016 ([id number]) 90524 EST. 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 PATIENT, LEVEL IV Diagnosis: Type 2 diabetes mellitus with hyperglycemia[ICD10: E11.65] Diagnosis: Encounter for immunization[ICD10: Z23] Diagnosis: Essential (primary) hypertension[ICD10: I10] Mila Nicole MD [facility] CPT-4: 22270 11/14/2015 ([id number]) 96363 EST. PATIENT, LEVEL IV Diagnosis: Type 2 diabetes mellitus with hyperglycemia[ICD10: E11.65] Diagnosis: Essential (primary) hypertension[ICD10: I10] Diagnosis: Low back pain[ICD10: M54.5] Mila Nicole MD [facility] CPT- 4: 59842 08/14/2015 ([id number]) 75133 EST. PATIENT, LEVEL IV Diagnosis: Type 2 diabetes mellitus with hyperglycemia[ICD10: E11.65] Diagnosis: Essential (primary) hypertension[ICD10: I10] Diagnosis: Hypothyroidism, unspecified[ICD10: E03.9] Mila Nicole MD, [facility] CPT-4: 90459 07/17/2015 ([id number]) 35671 EST. PATIENT, LEVEL IV Diagnosis: Essential (primary) hypertension[ICD10: I10] Diagnosis: Type 2 diabetes mellitus with hyperglycemia[ICD10: E11.65] Diagnosis: Headache[ICD10: R51] Gardenia Nicole MD, [facility] CPT-4: 25994 03/25/2015 ([id number]) 63145 EST. PATIENT, LEVEL IV Diagnosis: ESSENTIAL HYPERTENSION[ICD9: 401.9] Diagnosis: DIABETES TYPE II[ICD9: 250.00] Diagnosis: Aortic stenosis[ICD9: 424.1] Mila Nicole MD, [facility] CPT- 4: 50677 12/04/2014 ([id number]) OFFICE VISIT, NEW - LEVEL 4 Diagnosis: ESSENTIAL HYPERTENSION[ICD9: 401.9] Diagnosis: Diabetes mellitus out of control[ICD9: 250.02] Mila Nicole MD, [facility] CPT-4: 61054 08/14/2014 Plan of Care Planned Activity Notes Codes Status Date Visit Plan: Hypertension - well controlled - [...] medications. 01/27/2018 Appointment: Claudia Pruitt WPtel: [facility] [place] [phone] [place] (15 min) Moderate 01/27/2018 Patient Education: [...] worse 11/25/2017 Appointment: Claudia Pruitt WPtel: [facility] [place] [phone] [place] (15 min) Moderate 11/25/2017 Patient Education: Patient Medication Summary Completed 11/25/2017 Appointment: Mila Nicole WPtel[facility] [place] (15 min) Moderate 10/28/2017 Visit [...] appt. 10/26/2017 Appointment: [facility]itt [phone] [phone] (15 min) Moderate 10/26/2017 Patient Education: Patient [...] plan. 10/11/2017 Appointment: [facility] Pruitt [phone] [phone] (30 min) Complex 10/11/2017 Patient Education: Patient [...] Summary Completed 09/22/2017 App[facility]ment: [facility] [phone] [facility] (15 min) Moderate 09/13/2017 Appointment: [facility] [phone] [facility] (15 min) Moderate 09/07/2017 Visit Plan: [...] becoming uncontrolled. 07/06/2017 Appointment: [facility] [phone] [facility] [place] (15 min) Moderate 07/06/2017 Patient Education: Patient Medication Summary Completed 07/06/2017 Appointment: [facility]el[facility] [phone] [facility] [place] (15 min) Moderate 06/07/2017 Visit [...] controlled. 06/03/2017 Appointment: Claud[facility] Pruitt [facility]Ptel[phone] [facility] [phone] (30 min) Complex 06/03/2017 Patient Education: Patient [...] plan 05/12/2017 Appointment: Garden[facility] Shah [facility]el[phone] [facility] [place] (30 min) Complex 05/12/2017 Patient Education: Patient [...] Entresto medication. 04/15/2017 Appointment: Mila Nicole WPtel: [facility] [place] (15 min) Moderate 04/15/2017 Patient [...] daily. 03/19/2017 Appointment: [facility]Ptel[facility] [phone] [facility] (15 min) Moderate 03/19/2017 Patient Education: Patient Medication Summary Completed 03/19/2017 App[facility]ment: [facility] [phone] [facility] (15 min) Moderate 02/24/2017 Visit Plan: [...] HS 02/03/2017 Appointment: [facility] [phone] [facility] (15 min) Moderate 02/03/2017 Patient Education: [...] concerns. 01/07/2017 Appointment: Gardenia Shah [phone] [place] (30 min) Complex 01/07/2017 Patient Education: Patient [...] to allow for greater blood glucose control. [id number], 02/2018 junior nordisk 12/17/2016 Appointment: Mila Nicole WPtel: [phone] [facility] (15 min) Moderate 12/17/2016 Patient Education: Patient Medication Summary Completed 12/17/2016 Patient Education: Obesity Completed 12/17/2016 Appointment: Mila Nicole WPtel: [phone] [facility] [place] (15 min) Moderate 12/14/2016 Visit Plan: [...] medications. 09/14/2016 Appointment: Mila Nicole WPtel: [phone] [facility] [place] (15 min) Moderate 09/14/2016 Patient Education: [...] home. 06/18/2016 Appointment: [facility] [phone] [facility] (15 min) Moderate 06/18/2016 Patient Education: [...] home. 04/16/2016 Appointment: [facility]Pt[facility] [phone] [facility] [place] (15 min) Moderate 04/16/2016 [...] gabapentin 03/19/2016 Appointment: Mila Nicole WPtel: [phone] [facility] (15 min) Moderate 03/19/2016 Patient Education: Patient [...] home. 11/14/2015 Appointment: [facility]Ptel[facility] [phone] [facility] [place] (15 min) Moderate 11/14/2015 [...] check Hgba1c 07/17/2015 Appointment: Mila Nicole WPtel: [facility] [place] [facility] (15 min) Moderate 07/17/2015 Patient Education: [...] Hypertension Completed 03/25/2015 Appointment: Mila Nicole WPtel: [facility] [place] (15 min) Moderate 01/14/2015 Visit Plan: [...] control. 12/04/2014 Appointment: [facility]Ptel[facility] [phone] [facility] (15 min) Moderate 12/04/2014 Patient Education: [...] control. 08/14/2014 Appointment: [facility]Ptel[facility] [phone] [facility] [place] (S[place] New Patient 08/14/2014 [...] exposure. No change in current medications. . Hypertension - well controlled - continue [...] home. Peripheral neuropathy - continue with gabapentin INCREASE BASAGLAR TO 18 UNITS DAILY increase [...] log of blood sugars to appt. . DM-patient is here for placement of [...] to allow for greater blood glucose control. [id number], 02/2018 junior nordisk . Diabetes Mellitus - [...] pain - gabapentin for back pain. . Anxiety - the patient has uncontrolled [...] start on lantus 10 units at HS tylenol 2 pills three times daily x [...]
--- OUTSIDE RECORDS SUMMARY | 2018-03-30 10:59 | XMS REPORT | CCD ---
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 Name Role Phone PP Unavailable CCM Unavailable Summary Purpose Interface Exchange Insurance Providers Payer name Policy type / Coverage type Covered libertarian ID Effective Begin Date Effective End Date WPS Medicare Part B Medicare Part B [id number] Unknown AARP Medicare Part B [id number] Unknown Family history Mother Diagnosis Age At [...] Unknown 3 08/14/[address]: 608479688 Never smoker 08/14/[address]: 650598249 Never drinks alcohol 08/14/2014 Allergies, Adverse Reactions, Alerts Substance Reaction Codes Entered Date Inactivated Date Status * OTHER REACTION - SEE ANSWER BOX Invokana, Victoza Unknown 07/2017 No Inactive Date Active Paxil has blurred vision RxNorm: 626786 08/14/2014 No Inactive Date Active Lipitor RxNorm: 24484 08/14/2014 No Inactive Date Active Past Medical [...] 200 mg tablet,extended release 24 hr RxNorm: 183996 1 Tablet(s) PO daily 01/27/2018 No Stop Date Active Eliquis 2.5 mg tablet RxNorm: 5345082 1 Tablet(s) PO BID 2017 No Stop Date Active digoxin 125 mcg tablet RxNorm: 427400 1 Tablet(s) PO daily No Stop Date Active Basaglar KwikPen U-100 Insulin 100 unit/mL (3 mL) subcutaneous RxNorm: 3764864 20 Unit(s) SQ daily 11/25/201705/23 Active UPDATE RX metformin 500 mg tablet RxNorm: 928110 1 Tablet(s) PO UD 1.5 in morning, noon and 1 at bedtime 10/28/2017 10/22/2018 Active Basaglar KwikPen U-100 Insulin 100 unit/mL (3 mL) subcutaneous RxNorm: 0600800 18 Unit(s) SQ daily 10/26/201711/24 Inactive UPDATE RX levothyroxine 50 mcg tablet RxNorm: 202129 TAKE 1 TABLET BY MOUTH ONCE DAILY 10/15/2017 06/11/2018 Active Generic For:SYNTHROID 50MCG TAB 10/15/2017 9:59:00 AM escitalopram 10 mg tablet RxNorm: 401480 1 Tablet(s) PO QPM 01/201809/16/2018 Active Generic For:LEXAPRO 5MG 01/07/2017 9:05:43 AM Basaglar KwikPen U-100 Insulin 100 unit/mL (3 mL) subcutaneous RxNorm: 1070333 15 Unit(s) SQ daily 09/22/201710/25 Inactive potassium chloride ER 20 mEq tablet,extended release RxNorm: 662058 1 Tablet(s) PO daily 06/22/2017 01/17/2018 Inactive Lantus Solostar U-100 Insulin 100 unit/mL (3 mL) subcutaneous pen RxNorm: 705575 10 Unit(s) SQ daily 06/08/2017 Inactive Basaglar KwikPen U-100 Insulin 100 unit/mL (3 mL) subcutaneous RxNorm: 3560099 10 Unit(s) SQ daily 06/08/201706/07 Inactive Basaglar KwikPen U-100 Insulin 100 unit/mL (3 mL) subcutaneous RxNorm: 0370209 10 Unit(s) SQ daily 06/08/201709/21 Inactive Lexapro 5 mg tablet RxNorm: 457264 1 Tablet(s) PO daily 201711/27/2017 Inactive Lexapro 5 mg tablet RxNorm: 053238 1 Tablet(s) PO daily 201705/31/2017 Inactive bisoprolol 5 mg-hydrochlorothiazide 6.25 mg tablet RxNorm: 756120 1 Tablet(s) PO BID 05/04/2017 06/02/2017 Inactive Keflex 500 mg capsule RxNorm: 167495 1 Capsule(s) PO QID 201704/21/2017 Inactive Lantus Solostar 100 unit/mL (3 mL) subcutaneous insulin pen RxNorm: 321954 10 Unit(s) SQ daily 02/03/2017 06/07/2017 Inactive levothyroxine 50 mcg tablet RxNorm: 294012 TAKE 1 TABLET BY MOUTH ONCE DAILY 02/01/2017 09/28/2017 Inactive Generic For:SYNTHROID 50MCG TAB 02/01/2017 9:20:59 AM gabapentin 600 mg tablet RxNorm: 357991 1 Capsule(s) PO TID 01/21/2018 Inactive Lexapro 5 mg tablet RxNorm: 345576 TAKE 1 TABLET BY MOUTH AT BEDTIME 01/07/2017 09/21/2017 Inactive Generic For:LEXAPRO 5MG 01/07/2017 9:05:43 AM Victoza 2-Dariusz 0.6 mg/0.1 mL (18 mg/3 mL) subcutaneous pen injector RxNorm: 305137 1.8 Milligram(s) SQ daily 12/17/201602/07 Inactive Victoza 3-Dariusz 0.6 mg/0.1 mL (18 mg/3 mL) subcutaneous pen injector RxNorm: 679286 Milligram(s) SQ 12/17/2016 02/07/2017 Inactive Zetia 10 mg tablet RxNorm: 807664 1 Tablet(s) PO daily 201611/11/2017 Inactive fluticasone 50 mcg/actuation nasal spray,suspension RxNorm: 2402233 [place] NASAL ONE SPRAY IN EACH NOSTRIL TWICE DAILY 09/28/2016 04/25/2017 Inactive Victoza 2-Dariusz 0.6 mg/0.1 mL (18 mg/3 mL) subcutaneous pen injector RxNorm: 504633 1.2 Milligram(s) SQ daily 09/14/201612/16 Inactive Lexapro 5 mg tablet RxNorm: 935109 1 Tablet(s) PO QHS 201612/12/2016 Inactive metformin 500 mg tablet RxNorm: 960554 1 Tablet(s) PO UD 1.5 in morning, noon and 1 at bedtime 09/08/2016 09/02/2017 Inactive glimepiride 4 mg tablet RxNorm: 604011 TAKE 1 TABLET BY MOUTH ONCE DAILY 07/31/2016 09/13/2016 Inactive Generic For:*AMARYL 4MG 07/31/2016 9:02:38 AM Victoza 2-Dariusz 0.6 mg/0.1 mL (18 mg/3 mL) subcutaneous pen injector RxNorm: 758598 1.2 Milligram(s) SQ daily 05/18/201609/13 Inactive Victoza 2-Dariusz 0.6 mg/0.1 mL (18 mg/3 mL) subcutaneous pen injector RxNorm: 332578 1.2 Milligram(s) SQ daily 04/16/201605/17 Inactive levothyroxine 50 mcg tablet RxNorm: 679187 TAKE 1 TABLET BY MOUTH ONCE DAILY 04/08/2016 12/03/2016 Inactive Generic For:SYNTHROID 50MCG TAB 04/08/2016 9:05:40 AM levothyroxine 50 mcg tablet RxNorm: 362988 1 Tablet(s) PO daily TAKE 1 TABLET BY MOUTH ONCE DAILY 04/08/2016 12/03/2016 Inactive Generic For:SYNTHROID 50MCG TAB N O T I C E PRESCRIPTION PREVIOUSLY AUTHORIZED BY DOCTOR:HENRY BAIG bisoprolol 5 mg-hydrochlorothiazide 6.25 mg tablet RxNorm: 326380 1 Tablet(s) PO BID 03/23/2016 03/17/2017 Inactive Victoza 2-Dariusz 0.6 mg/0.1 mL (18 mg/3 mL) subcutaneous pen injector RxNorm: 822018 0.6 Milligram(s) SQ daily 03/19/201604/15 Inactive Lexapro 5 mg tablet RxNorm: 178652 1 Tablet(s) PO QHS 201606/16/2016 Inactive gabapentin 600 mg tablet RxNorm: 997257 1 Capsule(s) PO TID 07/201601/26/2017 Inactive glimepiride 4 mg tablet RxNorm: 909991 1 Tablet(s) PO daily 06/05/2016 Inactive Victoza 3-Dariusz 0.6 mg/0.1 mL (18 mg/3 mL) subcutaneous pen injector RxNorm: 335606 0.6 Milligram(s) SQ daily x2 weeks, then 1.2 mg SQ daily 03/18/2016 Inactive metformin 500 mg tablet RxNorm: 244696 1 Tablet(s) PO UD 1.5 in morning, noon and 1 at bedtime 08/14/2015 08/07/2016 Inactive gabapentin 600 mg tablet RxNorm: 385713 1 Capsule(s) PO TID SHE IS ONLY TAKING 1 QD 08/14/2015 03/18/2016 Inactive fluticasone 50 mcg/actuation nasal spray,suspension RxNorm: 472075 [place] NASAL ONE SPRAY IN EACH NOSTRIL TWICE DAILY 07/26/2015 07/25/2015 Inactive fluticasone 50 mcg/actuation nasal spray,suspension RxNorm: 6361894 [place] NASAL ONE SPRAY IN EACH NOSTRIL TWICE DAILY 07/26/2015 02/20/2016 Inactive bisoprolol 5 mg-hydrochlorothiazide 6.25 mg tablet RxNorm: 136381 1 Tablet(s) PO daily 1 Tablet(s) PO BID 07/17/20152015 Inactive metformin 500 mg tablet RxNorm: 571416 1 Tablet(s) PO TID 1 Tablet(s) PO TID 07/17/2015 08/13/2015 Inactive Diflucan 100 mg tablet RxNorm: 729283 1 Tablet(s) PO daily 06/201507/21/2015 Inactive Zetia 10 mg tablet RxNorm: 701335 1 Tablet(s) PO daily 201506/03/2016 Inactive bisoprolol 5 mg-hydrochlorothiazide 6.25 mg tablet RxNorm: 115967 1 Tablet(s) PO BID 04/18/2015 07/16/2015 Inactive metformin 500 mg tablet RxNorm: 403472 1 Tablet(s) PO TID 03/0106/28/2015 Inactive glimepiride 4 mg tablet RxNorm: 235616 1 Tablet(s) PO daily 01/30/2015 Inactive levothyroxine 50 mcg tablet RxNorm: 825096 TAKE 1 TABLET BY MOUTH ONCE DAILY 01/31/2015 09/27/2015 Inactive Generic For:SYNTHROID 50MCG TAB N O T I C E PRESCRIPTION PREVIOUSLY AUTHORIZED BY DOCTOR:HENRY BAIG glimepiride 4 mg tablet RxNorm: 353270 1 Tablet(s) PO daily 07/29/2015 Inactive Invokana 100 mg tablet RxNorm: 1131018 1 Tablet(s) PO daily 07/16/2015 Inactive bisoprolol 5 mg-hydrochlorothiazide 6.25 mg tablet RxNorm: 803467 1 Tablet(s) PO BID 08/27/2014 02/22/2015 Inactive metformin 500 mg tablet RxNorm: 862484 1 Tablet(s) PO TID 08/1012/07/2014 Inactive metformin 500 mg tablet RxNorm: 713693 1 Tablet(s) PO TID 08/1008/09/2014 Inactive Fish Oil 1,000 mg capsule RxNorm: 1 Capsule(s) PO daily No Start Date Active Protonix 40 mg tablet,delayed release RxNorm: 718094 1 Tablet(s) PO QAM No Start Date Active furosemide 40 mg tablet RxNorm: 550933 1 Tablet(s) PO daily No Start Date Active pen needle, diabetic 31 gauge x 1/6" RxNorm: Miscellaneous No Start Date Active nitroglycerin 0.4 mg sublingual tablet RxNorm: 015445 1 Tablet(s) SL as needed chest pain No Start Date Active amlodipine 5 mg tablet RxNorm: 621084 1 Tablet(s) PO daily No Start Date Active Entresto 24 mg-26 mg tablet RxNorm: 8920967 1 Tablet(s) PO BID No Start Date Active aspirin 81 mg chewable tablet RxNorm: 256829 1 Tablet(s) PO daily No Start Date 06/02/2017 Inactive Eliquis 5 mg tablet RxNorm: 2309185 1 Tablet(s) PO BID No Start Date 01/26/2018 Inactive bisoprolol-hydrochlorothiazide oral RxNorm: 30190 oral No Start Date 08/26/2014 Inactive levothyroxine 50 mcg tablet RxNorm: 364139 1 Tablet(s) PO daily No Start Date 01/30/2015 Inactive potassium chloride ER 20 mEq tablet,extended release RxNorm: 947744 1 Tablet(s) PO daily No Start Date 06/21/2017 Inactive digoxin 250 mcg tablet RxNorm: 304405 1 Tablet(s) PO daily No Start Date 01/26/2018 Inactive Invokana 100 mg tablet RxNorm: 4125678 1 Tablet(s) PO daily No Start Date 12/11/2014 Inactive Victoza 3-Dariusz 0.6 mg/0.1 mL (18 mg/3 mL) subcutaneous pen injector RxNorm: 662522 0.6 Milligram(s) SQ daily x2 weeks, then 1.2 mg SQ daily No Start Date 12/01/2015 Inactive Effient 10 mg tablet RxNorm: 909864 1 Tablet(s) PO QAM No Start Date 01/26/2018 Inactive Zetia 10 mg tablet RxNorm: 737347 1 Tablet(s) PO BID No Start Date 03/18/2016 Inactive metoprolol succinate ER 100 mg tablet,extended release 24 hr RxNorm: 531532 1 Tablet(s) PO daily No Start Date 2017 Inactive gabapentin 300 mg capsule RxNorm: 641755 1 Capsule(s) PO BID No Start Date 08/13/2015 Inactive Lasix 40 mg tablet RxNorm: 404114 1 Tablet(s) PO BID No Start Date 04/14/2017 Inactive Coreg 3.125 mg tablet RxNorm: 938686 1 Tablet(s) PO BID with meals No [...] 04/15/2017 stress test and then shipped to [facility] [address] Follow Up 03/19/2017 stress test and then shipped to [facility] diabetes mellitus 02/03/2017 headache 01/07/2017 diabetes mellitus 12/17/2016 diabetes mellitus 09/14/2016 diabetes mellitus 06/18/2016 medication follow up 04/16/2016 back pain 03/19/2016 back pain 11/14/2015 back pain 08/14/2015 diabetes mellitus 07/17/2015 Hospital Follow Up 03/25/2015 diabetes mellitus 12/04/2014 diabetes mellitus 08/14/2014 Results Observation Observation Code Item Item Code Result Date %Hba1C Ger873 % HbA1c 60665-1 6.8 % 01/12/2018 %Hba1C Afq879 Gluc Ave 148 mg/dL 01/12/2018 Metabolic Ord15 [...] 28.6 pg 01/11/2018 Cbc With Differential Ord2 Frederick% 7.8 % 01/11/2018 Cbc With Differential Ord2 [...] 1.70 K/ul 01/11/2018 Cbc With Differential Ord2 Frederick ABS# 0.4 K/ul 01/11/2018 Cbc With Differential Ord2 Eos ABS# 0.1 K/ul 01/11/2018 Cbc With Differential Ord2 Baso ABS# 0.0 K/ul 01/11/2018 Magnesium Ord90 Mag 1.7 mg/dL 01/11/2018 Test(s) Not Perfromed [id number] Test(s) Not Performed Test(s) Not Performed. See Below: 09/20/2017 Test(s) Not Perfromed [id number] TEST NAME BNP 09/20/2017 Test(s) Not Perfromed [id number] Rejection Reason Patient Refused due to lack of coving diganosis 09/20/2017 Test(s) Not Perfromed [id number] COMMENT Dorita Notified 09/20 Test(s) Not Perfromed [id number] Critical Care Cns Miguel Mclaughlin 2017 B Type Natriuretic Peptide Yyg6501 B-PHYSIATRIST 889.00 pg/ml 2017 Cbc With Differential Ord2 [...] 28.9 pg 09/20/2017 Cbc With Differential Ord2 Frederick% 5.6 % 09/20/2017 Cbc With Differential Ord2 [...] 1.68 K/ul 09/20/2017 Cbc With Differential Ord2 Frederick ABS# 0.3 K/ul 09/20/2017 Cbc With Differential Ord2 Eos ABS# 0.1 K/ul 09/20/2017 Cbc With Differential Ord2 Baso ABS# 0.0 K/ul 09/20/2017 %Hba1C Bgn578 % HbA1c 94685-6 7.9 % 09/20/2017 %Hba1C Alk727 Gluc Ave 180 mg/dL 09/20/2017 Magnesium Ord90 [...] 88.5 fl 07/07/2017 Cbc With Differential Ord2 Frederick% 7.9 % 07/07/2017 Cbc With Differential Ord2 [...] 1.34 K/ul 07/07/2017 Cbc With Differential Ord2 Frederick ABS# 0.4 K/ul 07/07/2017 Cbc With Differential Ord2 Eos ABS# 0.1 K/ul 07/07/2017 Cbc With Differential Ord2 Baso ABS# 0.0 K/ul 07/07/2017 Comp Metabolic Kzk367 NA 142 mEq/L 07/07/2017 Comp Metabolic Roa445 K 4.3 mEq/L 07/07/2017 Comp Metabolic Njg363 CL 105 mEq/L 07/07/2017 Comp Metabolic Aja043 CO2 28.0 mEq/L 07/07/2017 Comp Metabolic Tro034 ANION GAP 13 07/07/2017 Comp Metabolic Pbd309 GLUCOSE 197 mg/dL 07/07/2017 Comp Metabolic Woc674 Creat 1.1 mg/dL 07/07/2017 Comp Metabolic Vek273 eGFR 51 ml/min/1.73m2 07/07/2017 Comp Metabolic Wym835 BUN 21 mg/dL 07/07/2017 Comp Metabolic Nwf279 B/C Ratio 18.9 Ratio 07/07/2017 Comp Metabolic Isa618 CALCIUM 8.9 mg/dL 07/07/2017 Comp Metabolic Ryy206 ALK PHOS 51 U/L 07/07/2017 Comp Metabolic Oqs721 AST(SGOT) 11 U/L 07/07/2017 Comp Metabolic Uwg119 ALT(SGPT) 11 U/L 07/07/2017 Comp Metabolic Uyf740 BILI T 0.3 mg/dL 07/07/2017 Comp Metabolic Bsp071 ALBUMIN 4.2 g/dL 07/07/2017 Comp Metabolic Inx560 TPRO 6.0 g/dL 07/07/2017 Comp Metabolic Lqp498 GLOB 1.8 g/dL 07/07/2017 Comp Metabolic Svg580 A/G Ratio 2.3 Ratio 07/07/2017 Comp Metabolic Miw823 Osmo 292 mOsmo 07/07/2017 Digoxin Ord9 DIGOXIN 1.3 NG/ML 07/07/2017 Tsh Ord6 TSH (3rd IS) 2.19 uIU/mL 07/07/2017 B Type Natriuretic Peptide Uus1441 B-PHYSIATRIST 801.00 pg/ml 2017 Culture Urine [id number] URINE CULTURE SEE NOTES 04/19/2017 Culture Urine [id number] Continued Results 04/19/2017 Urine Culture Ucult Complete >100,000 col/ml aerobic growth sent to ref lab 04/16/2017 Comp Metabolic Bst186 NA 140 mEq/L 01/26/2017 Comp Metabolic Trn590 K 4.6 mEq/L 01/26/2017 Comp Metabolic Tyo483 CL 102 mEq/L 01/26/2017 Comp Metabolic Iwm050 CO2 28.0 mEq/L 01/26/2017 Comp Metabolic Soh979 ANION GAP 15 01/26/2017 Comp Metabolic Ldq281 GLUCOSE 173 mg/dL 01/26/2017 Comp Metabolic Url515 Creat 1.0 mg/dL 01/26/2017 Comp Metabolic Mta116 eGFR 56 ml/min/1.73m2 01/26/2017 Comp Metabolic Wla390 BUN 23 mg/dL 01/26/2017 Comp Metabolic Hnf896 B/C Ratio 22.5 Ratio 01/26/2017 Comp Metabolic Gea017 CALCIUM 9.4 mg/dL 01/26/2017 Comp Metabolic Vsz901 ALK PHOS 52 U/L 01/26/2017 Comp Metabolic Rgt751 AST(SGOT) 12 U/L 01/26/2017 Comp Metabolic Nch910 ALT(SGPT) 12 U/L 01/26/2017 Comp Metabolic Zlv527 BILI T 0.5 mg/dL 01/26/2017 Comp Metabolic Rat702 ALBUMIN 4.4 g/dL 01/26/2017 Comp Metabolic Wnh178 TPRO 6.5 g/dL 01/26/2017 Comp Metabolic Hmq224 GLOB 2.1 g/dL 01/26/2017 Comp Metabolic Ghw939 A/G Ratio 2.1 Ratio 01/26/2017 Comp Metabolic Pjk197 Osmo 287 mOsmo 01/26/2017 Cbc With Differential [...] 29.2 pg 01/26/2017 Cbc With Differential Ord2 Frederick% 4.9 % 01/26/2017 Cbc With Differential Ord2 [...] 1.75 K/ul 01/26/2017 Cbc With Differential Ord2 Frederick ABS# 0.4 K/ul 01/26/2017 Cbc With Differential Ord2 Eos ABS# 0.1 K/ul 01/26/2017 Cbc With Differential Ord2 Baso ABS# 0.0 K/ul 01/26/2017 %Hba1C Pyx240 % HbA1c 84833-9 7.8 % 01/26/2017 %Hba1C Ibt125 Gluc Ave 177 mg/dL 01/26/2017 Lipid Ord30 CHOL 239 mg/dL 01/26/2017 Lipid Ord30 HDL 40.0 mg/dl 01/26/2017 Lipid Ord30 TRIG 325 mg/dL 01/26/2017 Lipid Ord30 LDL 134 mg/dL 01/26/2017 Lipid Ord30 C/HDL 6.0 Ratio 01/26/2017 Free T4 Dfa722 FREE T4 0.95 ng/dL 01/26/2017 Tsh Ord6 [...] Metabolic Ord15 CALCIUM 9.0 mg/dL 09/08/2016 %Hba1C Jmz768 % HbA1c 91863-5 7.5 % 09/08/2016 %Hba1C Pqd387 Gluc Ave 169 mg/dL 09/08/2016 Tsh Ord6 hTSH II 2.64 uIU/mL 03/13/2016 %Hba1C Ppy834 % HbA1c 73536-2 8.2 % 03/13/2016 %Hba1C Tyg408 Gluc Ave 189 mg/dL 03/13/2016 Lipid Ord30 CHOL 233 mg/dL 03/13/2016 Lipid Ord30 HDL 46.0 mg/dl 03/13/2016 Lipid Ord30 TRIG 276 mg/dL 03/13/2016 Lipid Ord30 LDL 132 mg/dL 03/13/2016 Lipid Ord30 C/HDL 5.1 Ratio 03/13/2016 Free T4 Gtw631 FREE T4 0.94 ng/dL 03/13/2016 Cbc With [...] 30.3 pg 03/13/2016 Cbc With Differential Ord2 Frederick% 6.1 % 03/13/2016 Cbc With Differential Ord2 [...] 1.63 K/ul 03/13/2016 Cbc With Differential Ord2 Frederick ABS# 0.3 K/ul 03/13/2016 Cbc With Differential Ord2 Eos ABS# 0.1 K/ul 03/13/2016 Cbc With Differential Ord2 Baso ABS# 0.0 K/ul 03/13/2016 Comp Metabolic Uze491 NA 139 mEq/L 03/13/2016 Comp Metabolic Kws903 K 4.3 mEq/L 03/13/2016 Comp Metabolic Miz185 CL 103 mEq/L 03/13/2016 Comp Metabolic Pba625 CO2 28.0 mEq/L 03/13/2016 Comp Metabolic Kas494 ANION GAP 12 03/13/2016 Comp Metabolic Zcj656 GLUCOSE 200 mg/dL 03/13/2016 Comp Metabolic Tdt993 Creat 0.9 mg/dL 03/13/2016 Comp Metabolic Ysx083 eGFR 69 ml/min/1.73m2 03/13/2016 Comp Metabolic Abv069 BUN 19 mg/dL 03/13/2016 Comp Metabolic Uzb546 B/C Ratio 22.4 Ratio 03/13/2016 Comp Metabolic Rbf178 CALCIUM 9.0 mg/dL 03/13/2016 Comp Metabolic Yna162 ALK PHOS 57 U/L 03/13/2016 Comp Metabolic Wlo465 AST(SGOT) 13 U/L 03/13/2016 Comp Metabolic Shh342 ALT(SGPT) 16 U/L 03/13/2016 Comp Metabolic Evq428 BILI T 0.4 mg/dL 03/13/2016 Comp Metabolic Gmb815 ALBUMIN 4.2 g/dL 03/13/2016 Comp Metabolic Ryt702 TPRO 6.3 g/dL 03/13/2016 Comp Metabolic Ybp558 GLOB 2.1 g/dL 03/13/2016 Comp Metabolic Pvy608 A/G Ratio 2.0 Ratio 03/13/2016 Comp Metabolic Slm422 Osmo 285 mOsmo 03/13/2016 %Hba1C Qki587 % HbA1c 54967-4 8.3 % 11/14/2015 %Hba1C Erm516 Gluc Ave 192 mg/dL 11/14/2015 Lipid Ord30 CHOL 210 mg/dL 07/19/2015 Lipid Ord30 HDL 43.0 mg/dl 07/19/2015 Lipid Ord30 TRIG 311 mg/dL 07/19/2015 Lipid Ord30 LDL 105 mg/dL 07/19/2015 Lipid Ord30 C/HDL 4.9 Ratio 07/19/2015 %Hba1C Rsb943 % HbA1c 24368-7 7.6 % 07/19/2015 %Hba1C Qhg811 Gluc Ave 171 mg/dL 07/19/2015 Cbc With [...] 28.8 pg 07/19/2015 Cbc With Differential Ord2 Frederick% 6.1 % 07/19/2015 Cbc With Differential Ord2 [...] 1.63 K/ul 07/19/2015 Cbc With Differential Ord2 Frederick ABS# 0.3 K/ul 07/19/2015 Cbc With Differential Ord2 Eos ABS# 0.1 K/ul 07/19/2015 Cbc With Differential Ord2 Baso ABS# 0.0 K/ul 07/19/2015 Cbc With Differential Ord2 New Analyzer Notice Please note new ref ranges starting 03-27-2015 due to implemntation of new five part differential hematolgy analyzer. 07/19/2015 Comp Metabolic Erw032 NA 138 mEq/L 07/19/2015 Comp Metabolic Pyl418 K 4.3 mEq/L 07/19/2015 Comp Metabolic Ueh557 CL 100 mEq/L 07/19/2015 Comp Metabolic Ldf865 CO2 33.0 mEq/L 07/19/2015 Comp Metabolic Wsm265 ANION GAP 9 07/19/2015 Comp Metabolic Ztz746 GLUCOSE 149 mg/dL 07/19/2015 Comp Metabolic Bqr965 Creat 0.9 mg/dL 07/19/2015 Comp Metabolic Lea374 eGFR 62 ml/min/1.73m2 07/19/2015 Comp Metabolic Lkx272 BUN 19 mg/dL 07/19/2015 Comp Metabolic Buv226 B/C Ratio 20.2 Ratio 07/19/2015 Comp Metabolic Qlq103 CALCIUM 9.5 mg/dL 07/19/2015 Comp Metabolic Hai298 ALK PHOS 52 U/L 07/19/2015 Comp Metabolic Rrx486 AST(SGOT) 15 U/L 07/19/2015 Comp Metabolic Ulh039 ALT(SGPT) 14 U/L 07/19/2015 Comp Metabolic Ofn266 BILI T 0.5 mg/dL 07/19/2015 Comp Metabolic Usf848 ALBUMIN 4.4 g/dL 07/19/2015 Comp Metabolic Fhq238 TPRO 6.4 g/dL 07/19/2015 Comp Metabolic Zwg582 GLOB 2.0 g/dL 07/19/2015 Comp Metabolic Dut646 A/G Ratio 2.2 Ratio 07/19/2015 Comp Metabolic Bqz412 Osmo 281 mOsmo 07/19/2015 Free T4 Vdd502 FREE T4 0.92 ng/dL 07/19/2015 Tsh Ord6 hTSH II 1.95 uIU/mL 07/19/2015 Microalbumin Jlx535 MicroAlb 0.4 mg/dL 07/19/2015 Comp Metabolic Ylm822 NA 137 mEq/L 12/04/2014 Comp Metabolic Yly259 K 4.0 mEq/L 12/04/2014 Comp Metabolic Kdn093 CL 100 mEq/L 12/04/2014 Comp Metabolic Nhz315 CO2 29.0 mEq/L 12/04/2014 Comp Metabolic Rja831 ANION GAP 12 12/04/2014 Comp Metabolic Lrk434 GLUCOSE 171 mg/dL 12/04/2014 Comp Metabolic Zdi812 Creat 1.0 mg/dL 12/04/2014 Comp Metabolic Sof554 eGFR 60 ml/min/1.73m2 12/04/2014 Comp Metabolic Ylp939 BUN 25 mg/dL 12/04/2014 Comp Metabolic Xyu235 B/C Ratio 25.8 Ratio 12/04/2014 Comp Metabolic Ahs012 CALCIUM 9.4 mg/dL 12/04/2014 Comp Metabolic Lqg343 ALK PHOS 60 U/L 12/04/2014 Comp Metabolic Nzt304 AST(SGOT) 13 U/L 12/04/2014 Comp Metabolic Cuh313 ALT(SGPT) 17 U/L 12/04/2014 Comp Metabolic Mbg537 BILI T 0.4 mg/dL 12/04/2014 Comp Metabolic Zwm222 ALBUMIN 4.4 g/dL 12/04/2014 Comp Metabolic Yzu709 TPRO 6.9 g/dL 12/04/2014 Comp Metabolic Ioq763 GLOB 2.5 g/dL 12/04/2014 Comp Metabolic Hmb212 A/G Ratio 1.8 Ratio 12/04/2014 Comp Metabolic Iqr259 Osmo 282 mOsmo 12/04/2014 Tsh Ord6 hTSH II 1.78 uIU/mL 12/04/2014 %Hba1C Hnk752 % HbA1c 50433-1 8.3 % 12/04/2014 %Hba1C Xhh803 Gluc Ave 192 mg/dL 12/04/2014 Free T4 Omp520 FREE T4 0.85 ng/dL 12/04/2014 Lipid Ord30 [...] NO PRSV 4 ANABELLE 3 YRS+ CPT-4: 20945 11/25/2017 GLUC MONITOR CONT PHYS I&R CPT-4: 10008 10/26/2017 GLUCOSE MONITORING CONT CPT-4: 81167 10/11/2017 URINALYSIS NONAUTO W/O SCOPE CPT-4: 56056 04/15/2017 FLU VAC NO PRSV 4 ANABELLE 3 YRS+ CPT-4: 96744 12/17/2016 ADMIN INFLUENZA VIRUS VAC CPT-4: G0008 12/17/2016 FLU VACC PRSV FREE INC ANTIG Formatting Model/CDA Sections, Assigned to/Nery Daniels CPT-4: 96045Dhlfull 11/14/2015 ADMIN INFLUENZA VIRUS VAC CPT-4: G0008 11/14/2015 ADMIN INFLUENZA VIRUS VAC Formatting Model/CDA Sections, Assigned to/Nery Daniels CPT-4: W7660Egikfpa 12/04/2014 FLU VACC 4 ANABELLE 3 YRS PLUS IM SNOMED CT: [id number] CPT-4: 14402 12/04/2014 Vital Signs Date Vital 01/27/2018 Blood Pressure 1: 142/70 Code : 8480-6 BMI: 29.5 Code : 22328-3 Heart Rate 1 : 61 bpm Height: 5' SpO2: 99% Weight: 151 lbs 11/25/2017 Blood Pressure 1: 148/72 Code : 8480-6 BMI: 30.9 Code : 26756-4 Heart Rate 1 : 62 bpm Height: 5' SpO2: 98% Weight: 158 lbs 10/26/2017 Blood Pressure 1: 156/74 Code : 8480-6 BMI: 31.2 Code : 48108-0 Heart Rate 1 : 71 bpm Height: 5' SpO2: 98% Weight: 160 lbs 10/11/2017 Blood Pressure 1: 128/70 Code : 8480-6 BMI: 30.9 Code : 33321-4 Heart Rate 1 : 70 bpm Height: 5' SpO2: 95% Weight: 158 lbs 09/22/2017 Blood Pressure 1: 110/52 Code : 8480-6 BMI: 30.9 Code : 80051-1 Heart Rate 1 : 72 bpm Height: 5' SpO2: 99% Weight: 158 lbs 07/06/2017 Blood Pressure 1: 120/85 Code : 8480-6 BMI: 31.4 Code : 48579-3 Heart Rate 1 : 74 bpm Height: 5' SpO2: 92% Weight: 161 lbs 06/03/2017 Blood Pressure 1: 120/62 Code : 8480-6 BMI: 31.1 Code : 34612-1 Heart Rate 1 : 73 bpm Height: 5' SpO2: 99% Weight: 159 lbs 05/12/2017 Blood Pressure 1: 132/68 Code : 8480-6 BMI: 32.4 Code : 05651-9 Heart Rate 1 : 95 bpm Height: 5' SpO2: 97% Weight: 166 lbs 04/15/2017 Blood Pressure 1: 128/84 Code : 8480-6 BMI: 32.4 Code : 94323-7 Heart Rate 1 : 62 bpm Height: 5' SpO2: 97% Weight: 166 lbs 03/19/2017 Blood Pressure 1: 112/60 Code : 8480-6 BMI: 32.0 Code : 10144-1 Height: 5' Weight: 164 lbs 02/03/2017 Blood Pressure 1: 128/76 Code : 8480-6 BMI: 33.4 Code : 06429-7 Heart Rate 1 : 91 bpm Height: 5' SpO2: 99% Weight: 171 lbs 01/07/2017 Blood Pressure 1: 126/74 Code : 8480-6 BMI: 34.2 Code : 45383-3 Heart Rate 1 : 83 bpm Height: 5' SpO2: 97% Weight: 175 lbs 12/17/2016 Blood Pressure 1: 122/72 Code : 8480-6 BMI: 34.0 Code : 79409-7 Heart Rate 1 : 78 bpm Height: 5' SpO2: 97% Weight: 174 lbs 09/14/2016 Blood Pressure 1: 128/86 Code : 8480-6 BMI: 33.8 Code : 59322-5 Heart Rate 1 : 88 bpm Height: 5' SpO2: 96% Weight: 173 lbs 06/18/2016 Blood Pressure 1: 122/74 Code : 8480-6 BMI: 34.8 Code : 48667-2 Heart Rate 1 : 78 bpm Height: 5' SpO2: 98% Weight: 178 lbs 04/16/2016 Blood Pressure 1: 134/68 Code : 8480-6 BMI: 35.0 Code : 07979-5 Heart Rate 1 : 67 bpm Height: 5' SpO2: 97% Weight: 179 lbs 03/19/2016 Blood Pressure 1: 132/74 Code : 8480-6 BMI: 34.6 Code : 73533-1 Heart Rate 1 : 74 bpm Height: 5' SpO2: 97% Weight: 177 lbs 11/14/2015 Blood Pressure 1: 132/70 Code : 8480-6 BMI: 35.2 Code : 72344-0 Heart Rate 1 : 68 bpm Height: 5' Weight: 180 lbs 08/14/2015 Blood Pressure 1: 122/74 Code : 8480-6 BMI: 33.8 Code : 64299-9 Heart Rate 1 : 73 bpm Height: 5' SpO2: 93% Weight: 173 lbs 07/17/2015 Blood Pressure 1: 138/78 Code : 8480-6 BMI: 34.0 Code : 25191-2 Heart Rate 1 : 85 bpm Height: 5' SpO2: 97% Weight: 174 lbs 03/25/2015 Blood Pressure 1: 130/78 Code : 8480-6 BMI: 33.2 Code : 76846-1 Heart Rate 1 : 77 bpm Height: 5' SpO2: 97% Weight: 170 lbs 12/04/2014 Blood Pressure 1: 120/74 Code : 8480-6 BMI: 35.4 Code : 63157-6 Heart Rate 1 : 67 bpm Height: 5' SpO2: 94% Weight: 181 lbs 5 oz 08/14/2014 Blood Pressure 1: 132/68 Code : 8480-6 BMI: 32.1 Code : 70279-4 Heart Rate 1 : 62 bpm Height: [...] data Encounters Encounter Performer Location Codes Date [id number]) [id number] EST. PATIENT, LEVEL IV Diagnosis: Type 2 diabetes mellitus with hyperglycemia[ICD10: E11.65] Diagnosis: Essential (primary) hypertension[ICD10: I10] Diagnosis: Major depressive disorder, recurrent, mild[ICD10: F33.0] Diagnosis: Generalized anxiety disorder[ICD10: F41.1] [facility] CPT-4: 50479 01/27/2018 ([id number]) 23422 EST. PATIENT, LEVEL IV Diagnosis: Type 2 diabetes mellitus with hyperglycemia[ICD10: E11.65] Diagnosis: Essential (primary) hypertension[ICD10: I10] Diagnosis: Encounter for immunization[ICD10: Z23] Diagnosis: Carpal tunnel syndrome, left upper limb[ICD10: G56.02] [facility] CPT-4: 45138 11/25/2017 ([id number]) 43089 EST. PATIENT, LEVEL III Diagnosis: Type 2 diabetes mellitus with hyperglycemia[ICD10: E11.65] [facility] CPT-4: 34728 10/26/2017 ([id number]) Miscellaneous no charge Diagnosis: Type 2 diabetes mellitus with hyperglycemia[ICD10: E11.65] Claudia Nicole MD, [facility] CPT-4: 41641 10/18/2017 ([id number]) 71796 EST. 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 CPT-4: 34603 09/22/2017 ([id number]) 79574 EST. PATIENT, LEVEL IV Diagnosis: Type 2 diabetes mellitus with hyperglycemia[ICD10: E11.65] Diagnosis: Paroxysmal atrial fibrillation[ICD10: I48.0] Diagnosis: Essential (primary) hypertension[ICD10: I10] Mila Nicole MD, [facility] CPT-4: 16597 07/06/2017 ([id number]) 55423 EST. PATIENT, LEVEL IV Diagnosis: Essential (primary) hypertension[ICD10: I10] Diagnosis: Type 2 diabetes mellitus with hyperglycemia[ICD10: E11.65] Diagnosis: Paroxysmal atrial fibrillation[ICD10: I48.0] Claudia Nicole MD, [facility] CPT-4: 62000 06/03/2017 98542 EST. PATIENT, LEVEL III Diagnosis: Generalized anxiety disorder[ICD10: F41.1] Diagnosis: Major depressive disorder, recurrent, moderate[ICD10: F33.1] Diagnosis: Paroxysmal tachycardia, unspecified[ICD10: I47.9] Gardenia Nicole MD, [facility] CPT-4: 03376 05/12/2017 ([id number]) 35783 EST. PATIENT, LEVEL IV Diagnosis: Essential (primary) hypertension[ICD10: I10] Diagnosis: Cough[ICD10: R05] Diagnosis: Dysuria[ICD10: R30.0] Mila Nicole MD, [facility] CPT-4: 96559 04/15/2017 ([id number]) 52893 EST. PATIENT, LEVEL IV Diagnosis: Type 2 diabetes mellitus with hyperglycemia[ICD10: E11.65] Diagnosis: Essential (primary) hypertension[ICD10: I10] Mila Nicole MD, [facility] CPT-4: 62646 03/19/2017 ([id number] 51284 EST. PATIENT, LEVEL III Diagnosis: Type 2 diabetes mellitus with hyperglycemia[ICD10: E11.65] Mila Nicole MD [facility] CPT-4: 87853 02/03/2017 14120 EST. PATIENT, LEVEL IV Diagnosis: Generalized anxiety disorder[ICD10: F41.1] Diagnosis: Type 2 diabetes mellitus with hyperglycemia[ICD10: E11.65] Diagnosis: Essential (primary) hypertension[ICD10: I10] Gardenia Nicole MD [facility] CPT-4: 31011 01/07/2017 [id number]) 29432 EST. PATIENT, LEVEL III Diagnosis: Type 2 diabetes mellitus with hyperglycemia[ICD10: E11.65] Diagnosis: Encounter for immunization[ICD10: Z23] Mila Nicole MD [facility] CPT-4: 83847 12/17/2016 ([id number]) 49204 EST. PATIENT, LEVEL IV Diagnosis: Type 2 diabetes mellitus with hyperglycemia[ICD10: E11.65] Diagnosis: Essential (primary) hypertension[ICD10: I10] Diagnosis: Major depressive disorder, recurrent, mild[ICD10: F33.0] Mila Nicole MD [facility] CPT-4: 74974 09/14/2016 ([id number]) 35020 EST. 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 CPT-4: 50737 06/18/2016 ([id number]) 26683 EST. PATIENT, LEVEL IV Diagnosis: Type 2 diabetes mellitus with hyperglycemia[ICD10: E11.65] Diagnosis: Essential (primary) hypertension[ICD10: I10] Mila Nicole MD [facility] CPT-4: 52769 04/16/2016 ([id number]) 25673 EST. 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 CPT-4: 81209 03/19/2016 ([id number]) 63415 EST. PATIENT, LEVEL IV Diagnosis: Type 2 diabetes mellitus with hyperglycemia[ICD10: E11.65] Diagnosis: Encounter for immunization[ICD10: Z23] Diagnosis: Essential (primary) hypertension[ICD10: I10] Mila Nicole MD [facility] CPT-4: 29559 11/14/2015 ([id number]) 98385 EST. PATIENT, LEVEL IV Diagnosis: Type 2 diabetes mellitus with hyperglycemia[ICD10: E11.65] Diagnosis: Essential (primary) hypertension[ICD10: I10] Diagnosis: Low back pain[ICD10: M54.5] Mila Nicole MD [facility] CPT- 4: 72423 08/14/2015 ([id number]) 77757 EST. PATIENT, LEVEL IV Diagnosis: Type 2 diabetes mellitus with hyperglycemia[ICD10: E11.65] Diagnosis: Essential (primary) hypertension[ICD10: I10] Diagnosis: Hypothyroidism, unspecified[ICD10: E03.9] Mila Nicole MD, [facility] CPT-4: 46945 07/17/2015 ([id number]) 62394 EST. PATIENT, LEVEL IV Diagnosis: Essential (primary) hypertension[ICD10: I10] Diagnosis: Type 2 diabetes mellitus with hyperglycemia[ICD10: E11.65] Diagnosis: Headache[ICD10: R51] Gardenia Nicole MD, [facility] CPT-4: 07368 03/25/2015 ([id number]) 16838 EST. PATIENT, LEVEL IV Diagnosis: ESSENTIAL HYPERTENSION[ICD9: 401.9] Diagnosis: DIABETES TYPE II[ICD9: 250.00] Diagnosis: Aortic stenosis[ICD9: 424.1] Mila Nicole MD, [facility] CPT- 4: 49299 12/04/2014 ([id number]) OFFICE VISIT, NEW - LEVEL 4 Diagnosis: ESSENTIAL HYPERTENSION[ICD9: 401.9] Diagnosis: Diabetes mellitus out of control[ICD9: 250.02] Mila Nicole MD, [facility] CPT-4: 83384 08/14/2014 Plan of Care Planned Activity Notes [...] exposure. No change in current medications. 01/27/2018 Patient Education: Patient Medication Summary Completed [...] worse 11/25/2017 [phone] [facility] [place] (15 min) Moderate 11/25/2017 Patient Education: Patient Medication Summary Completed 11/25/2017 App[facility]ment: [phone] [place] (15 min) Moderate 10/28/2017 Visit Plan: [...] appt. 10/26/2017 Appointment: Claudia Pruitt WPtel: [phone] [phone] (15 min) Moderate 10/26/2017 Patient Education: Patient [...] plan. 10/11/2017 App[facility]ment: [phone] [facility] (30 min) Complex 10/11/2017 Patient Education: [...] Summary Completed 09/22/2017 Appointment: [facility] [phone] [facility] [place] (15 min) Moderate 09/13/2017 Appointment: [facility] [phone] [facility] [place] (15 min) Moderate 09/07/2017 Visit Plan: [...] uncontrolled. 07/06/2017 Appointment: Mila Nicole WPtel: [phone] [facility] [place] (15 min) Moderate 07/06/2017 Patient Education: Patient Medication Summary Completed 07/06/2017 Appointment: Mial Nicole [facility] [phone] [facility] [place] (15 min) Moderate 06/07/2017 Visit Plan: [...] less controlled. 06/03/2017 App[facility]ment: [facility] [phone] [phone] (30 min) Complex 06/03/2017 Patient Education: [...] treatment plan 05/12/2017 App[facility]ment[facility] [phone] [facility] [place] (30 min) Complex 05/12/2017 Patient [...] Entresto medication. 04/15/2017 Appointment: Mila Nicole WPtel: [facility] (15 min) Moderate 04/15/2017 Patient Education: [...] units daily. 03/19/2017 Appointment: Mila Nicole WPtel: [facility] (15 min) Moderate 03/19/2017 Patient Education: Patient Medication Summary Completed 03/19/2017 Appointment: Mila Nicole WPtel: [facility] (15 min) Moderate 02/24/2017 Visit Plan: Diabetes [...] HS 02/03/2017 Appointment: [facility] [phone] [facility] (15 min) Moderate 02/03/2017 Patient Education: Patient [...] concerns. 01/07/2017 App[facility]ment[phone] ([facility] min) Complex 01/07/2017 Patient Education: [...] to allow for greater blood glucose control. [id number], 02/2018 junior nordisk 12/17/2016 Appointment: Mila Nicole WPtel: [phone] [facility] (15 min) Moderate 12/17/2016 Patient Education: Patient Medication Summary Completed 12/17/2016 Patient Education: Obesity Completed 12/17/2016 Appointment: Mila Nicole WPtel: [phone] [facility] (15 min) Moderate 12/14/2016 Visit [...] medications. 09/14/2016 Appointment: [facility] [phone] [facility] [place] (15 min) Moderate 09/14/2016 Patient Education: [...] home. 06/18/2016 Appointment: Mila Nicole WPtel: [phone] [facility] (15 min) Moderate 06/18/2016 Patient Education: Patient [...] at home. 04/16/2016 Appointment: Mila Nicole WPtel: [phone] [facility] (15 min) Moderate 04/16/2016 Patient Education: Patient [...] gabapentin 03/19/2016 Appointment: [facility] [phone] [facility] (15 min) Moderate 03/19/2016 Patient Education: Patient [...] home. 11/14/2015 Appointment: [facility] [phone] [facility] (15 min) Moderate 11/14/2015 Patient Education: Patient [...] check Hgba1c 07/17/2015 Appointment: Mila Nicole WPtel: [facility] (15 min) Moderate 07/17/2015 Patient Education: Patient [...] Hypertension Completed 03/25/2015 Appointment: Mil[facility] Nicole [facility]: [phone] [facility] (15 min) Moderate 01/14/2015 Visit Plan: Diabetes [...] control. 12/04/2014 Appointment: [facility] [phone] [facility] (15 min) Moderate 12/04/2014 Patient Education: Patient [...] [facility] [place] (S[place] New Patient 08/14/2014 Patient Education: [...] to allow for greater blood glucose control. [id number], 02/2018 junior nordisk . Hypertension - well [...]
--- OUTSIDE RECORDS SUMMARY | 2018-03-30 11:02 | XMS REPORT | CCD ---
Author Author [facility] Organization [facility] Address [address] [place] [address] Phone Care Team Providers Care Framing Specialist Name Role Phone PP Unavailable CCM Unavailable Summary Purpose Interface Exchange Insurance Providers Payer name Policy type / Coverage type Covered green party ID Effective Begin Date Effective End Date WPS Medicare Part B Medicare Part B [id number] Unknown AARP Medicare Part B [id number] Unknown Family history Mother Diagnosis Age At [...] Unknown 3 08/14/[address]: 008682490 Never smoker 08/14/[address]: 222778021 Never drinks alcohol 08/14/2014 Allergies, Adverse Reactions, Alerts Substance Reaction Codes Entered Date Inactivated Date Status * OTHER REACTION - SEE ANSWER BOX Invokana, Victoza Unknown 07/2017 No Inactive Date Active Paxil has blurred vision RxNorm: 616316 08/14/2014 No Inactive Date Active Lipitor RxNorm: 03215 08/14/2014 No Inactive Date Active Past Medical History Illness Codes Condition Status Onset Date Resolved Date Carpal tunnel syndrome, left upper limb ICD-9: 354.0 ICD-10: G56.02 Active 11/25/2017 Unknown Encounter for immunization ICD-9: V04.81 ICD-10: Z23 Active 12/03/2014 Unknown Essential (primary) hypertension ICD-9: 401.1 ICD-10: I10 Active 04/15/2017 Unknown Type 2 diabetes mellitus with hyperglycemia ICD-9: 250.00 ICD-10: E11.65 Active 12/03/2014 Unknown Type 2 diabetes mellitus [...] Problems Condition Codes Effective Dates Condition Status Carpal tunnel syndrome, left upper limb ICD-9: 354.0 ICD-10: G56.02 11/25/2017 Active Encounter for immunization ICD-9: V04.81 ICD-10: Z23 12/03/2014 Active Essential (primary) hypertension ICD-9: 401.1 ICD-10: I10 04/15/2017 Active Type 2 diabetes mellitus with hyperglycemia ICD-9: 250.00 ICD-10: E11.65 12/03/2014 Active Type 2 diabetes mellitus with [...] Insulin 100 unit/mL (3 mL) subcutaneous RxNorm: 4884528 20 Unit(s) SQ daily 11/25/201705/23 Active UPDATE RX metformin 500 mg tablet RxNorm: 487400 1 Tablet(s) PO UD 1.5 in morning, noon and 1 at bedtime 10/28/2017 10/22/2018 Active Basaglar KwikPen U-100 Insulin 100 unit/mL (3 mL) subcutaneous RxNorm: 8243481 18 Unit(s) SQ daily 10/26/201711/24 Inactive UPDATE RX levothyroxine 50 mcg tablet RxNorm: 095414 TAKE 1 TABLET BY MOUTH ONCE DAILY 10/15/2017 06/11/2018 Active Generic For:SYNTHROID 50MCG TAB 10/15/2017 9:59:00 AM escitalopram 10 mg tablet RxNorm: 430378 1 Tablet(s) PO QPM 01/201809/16/2018 Active Generic For:LEXAPRO 5MG 01/07/2017 9:05:43 AM Basaglar KwikPen U-100 Insulin 100 unit/mL (3 mL) subcutaneous RxNorm: 3647239 15 Unit(s) SQ daily 09/22/201710/25 Inactive potassium chloride ER 20 mEq tablet,extended release RxNorm: 151166 1 Tablet(s) PO daily 06/22/2017 01/17/2018 Active Lantus Solostar U-100 Insulin 100 unit/mL (3 mL) subcutaneous pen RxNorm: 535244 10 Unit(s) SQ daily 06/08/2017 Inactive Basaglar KwikPen U-100 Insulin 100 unit/mL (3 mL) subcutaneous RxNorm: 7314447 10 Unit(s) SQ daily 06/08/201706/07 Inactive Basaglar KwikPen U-100 Insulin 100 unit/mL (3 mL) subcutaneous RxNorm: 5513571 10 Unit(s) SQ daily 06/08/201709/21 Inactive Lexapro 5 mg tablet RxNorm: 714548 1 Tablet(s) PO daily 201711/27/2017 Inactive Lexapro 5 mg tablet RxNorm: 600337 1 Tablet(s) PO daily 201705/31/2017 Inactive bisoprolol 5 mg-hydrochlorothiazide 6.25 mg tablet RxNorm: 832486 1 Tablet(s) PO BID 05/04/2017 06/02/2017 Inactive Keflex 500 mg capsule RxNorm: 194365 1 Capsule(s) PO QID 201704/21/2017 Inactive Lantus Solostar 100 unit/mL (3 mL) subcutaneous insulin pen RxNorm: 309777 10 Unit(s) SQ daily 02/03/2017 06/07/2017 Inactive levothyroxine 50 mcg tablet RxNorm: 067821 TAKE 1 TABLET BY MOUTH ONCE DAILY 02/01/2017 09/28/2017 Inactive Generic For:SYNTHROID 50MCG TAB 02/01/2017 9:20:59 AM gabapentin 600 mg tablet RxNorm: 999098 1 Capsule(s) PO TID 01/21/2018 Active Lexapro 5 mg tablet RxNorm: 322615 TAKE 1 TABLET BY MOUTH AT BEDTIME 01/07/2017 09/21/2017 Inactive Generic For:LEXAPRO 5MG 01/07/2017 9:05:43 AM Victoza 2-Dariusz 0.6 mg/0.1 mL (18 mg/3 mL) subcutaneous pen injector RxNorm: 845220 1.8 Milligram(s) SQ daily 12/17/201602/07 Inactive Victoza 3-Dariusz 0.6 mg/0.1 mL (18 mg/3 mL) subcutaneous pen injector RxNorm: 190931 Milligram(s) SQ 12/17/2016 02/07/2017 Inactive Zetia 10 mg tablet RxNorm: 427330 1 Tablet(s) PO daily 201611/11/2017 Inactive fluticasone 50 mcg/actuation nasal spray,suspension RxNorm: 8891883 [place] NASAL ONE SPRAY IN EACH NOSTRIL TWICE DAILY 09/28/2016 04/25/2017 Inactive Victoza 2-Dariusz 0.6 mg/0.1 mL (18 mg/3 mL) subcutaneous pen injector RxNorm: 057824 1.2 Milligram(s) SQ daily 09/14/201612/16 Inactive Lexapro 5 mg tablet RxNorm: 340201 1 Tablet(s) PO QHS 201612/12/2016 Inactive metformin 500 mg tablet RxNorm: 318812 1 Tablet(s) PO UD 1.5 in morning, noon and 1 at bedtime 09/08/2016 09/02/2017 Inactive glimepiride 4 mg tablet RxNorm: 127862 TAKE 1 TABLET BY MOUTH ONCE DAILY 07/31/2016 09/13/2016 Inactive Generic For:*AMARYL 4MG 07/31/2016 9:02:38 AM Victoza 2-Dariusz 0.6 mg/0.1 mL (18 mg/3 mL) subcutaneous pen injector RxNorm: 320178 1.2 Milligram(s) SQ daily 05/18/201609/13 Inactive Victoza 2-Dariusz 0.6 mg/0.1 mL (18 mg/3 mL) subcutaneous pen injector RxNorm: 712304 1.2 Milligram(s) SQ daily 04/16/201605/17 Inactive levothyroxine 50 mcg tablet RxNorm: 836828 TAKE 1 TABLET BY MOUTH ONCE DAILY 04/08/2016 12/03/2016 Inactive Generic For:SYNTHROID 50MCG TAB 04/08/2016 9:05:40 AM levothyroxine 50 mcg tablet RxNorm: 048928 1 Tablet(s) PO daily TAKE 1 TABLET BY MOUTH ONCE DAILY 04/08/2016 12/03/2016 Inactive Generic For:SYNTHROID 50MCG TAB N O T I C E PRESCRIPTION PREVIOUSLY AUTHORIZED BY DOCTOR:HENRY BAIG bisoprolol 5 mg-hydrochlorothiazide 6.25 mg tablet RxNorm: 684896 1 Tablet(s) PO BID 03/23/2016 03/17/2017 Inactive Victoza 2-Dariusz 0.6 mg/0.1 mL (18 mg/3 mL) subcutaneous pen injector RxNorm: 491782 0.6 Milligram(s) SQ daily 03/19/201604/15 Inactive Lexapro 5 mg tablet RxNorm: 769284 1 Tablet(s) PO QHS 201606/16/2016 Inactive gabapentin 600 mg tablet RxNorm: 374548 1 Capsule(s) PO TID 07/201601/26/2017 Inactive glimepiride 4 mg tablet RxNorm: 986824 1 Tablet(s) PO daily 06/05/2016 Inactive Victoza 3-Dariusz 0.6 mg/0.1 mL (18 mg/3 mL) subcutaneous pen injector RxNorm: 505824 0.6 Milligram(s) SQ daily x2 weeks, then 1.2 mg SQ daily 03/18/2016 Inactive metformin 500 mg tablet RxNorm: 922772 1 Tablet(s) PO UD 1.5 in morning, noon and 1 at bedtime 08/14/2015 08/07/2016 Inactive gabapentin 600 mg tablet RxNorm: 353063 1 Capsule(s) PO TID SHE IS ONLY TAKING 1 QD 08/14/2015 03/18/2016 Inactive fluticasone 50 mcg/actuation nasal spray,suspension RxNorm: 700435 [place] NASAL ONE SPRAY IN EACH NOSTRIL TWICE DAILY 07/26/2015 07/25/2015 Inactive fluticasone 50 mcg/actuation nasal spray,suspension RxNorm: 4882528 [place] NASAL ONE SPRAY IN EACH NOSTRIL TWICE DAILY 07/26/2015 02/20/2016 Inactive bisoprolol 5 mg-hydrochlorothiazide 6.25 mg tablet RxNorm: 023022 1 Tablet(s) PO daily 1 Tablet(s) PO BID 07/17/20152015 Inactive metformin 500 mg tablet RxNorm: 633853 1 Tablet(s) PO TID 1 Tablet(s) PO TID 07/17/2015 08/13/2015 Inactive Diflucan 100 mg tablet RxNorm: 208203 1 Tablet(s) PO daily 06/201507/21/2015 Inactive Zetia 10 mg tablet RxNorm: 053532 1 Tablet(s) PO daily 201506/03/2016 Inactive bisoprolol 5 mg-hydrochlorothiazide 6.25 mg tablet RxNorm: 515155 1 Tablet(s) PO BID 04/18/2015 07/16/2015 Inactive metformin 500 mg tablet RxNorm: 333724 1 Tablet(s) PO TID 03/0106/28/2015 Inactive glimepiride 4 mg tablet RxNorm: 617630 1 Tablet(s) PO daily 01/30/2015 Inactive levothyroxine 50 mcg tablet RxNorm: 267564 TAKE 1 TABLET BY MOUTH ONCE DAILY 01/31/2015 09/27/2015 Inactive Generic For:SYNTHROID 50MCG TAB N O T I C E PRESCRIPTION PREVIOUSLY AUTHORIZED BY DOCTOR:HENRY BAIG glimepiride 4 mg tablet RxNorm: 877297 1 Tablet(s) PO daily 07/29/2015 Inactive Invokana 100 mg tablet RxNorm: 7259104 1 Tablet(s) PO daily 07/16/2015 Inactive bisoprolol 5 mg-hydrochlorothiazide 6.25 mg tablet RxNorm: 551793 1 Tablet(s) PO BID 08/27/2014 02/22/2015 Inactive metformin 500 mg tablet RxNorm: 517219 1 Tablet(s) PO TID 08/1012/07/2014 Inactive metformin 500 mg tablet RxNorm: 004463 1 Tablet(s) PO TID 08/1008/09/2014 Inactive Eliquis 5 mg tablet RxNorm: 1647225 1 Tablet(s) PO BID No Start Date Active Fish Oil 1,000 mg capsule RxNorm: 1 Capsule(s) PO daily No Start Date Active Protonix 40 mg tablet,delayed release RxNorm: 854756 1 Tablet(s) PO QAM No Start Date Active furosemide 40 mg tablet RxNorm: 715295 1 Tablet(s) PO daily No Start Date Active digoxin 250 mcg tablet RxNorm: 477353 1 Tablet(s) PO daily No Start Date Active pen needle, diabetic 31 gauge x 1/6" RxNorm: Miscellaneous No Start Date Active Effient 10 mg tablet RxNorm: 780581 1 Tablet(s) PO QAM No Start Date Active metoprolol succinate ER 100 mg tablet,extended release 24 hr RxNorm: 967620 1 Tablet(s) PO daily No Start Date Active nitroglycerin 0.4 mg sublingual tablet RxNorm: 947889 1 Tablet(s) SL as needed chest pain No Start Date Active Entresto 24 mg-26 mg tablet RxNorm: 1092634 1 Tablet(s) PO BID No Start Date Active aspirin 81 mg chewable tablet RxNorm: 508565 1 Tablet(s) PO daily No Start Date 06/02/2017 Inactive bisoprolol-hydrochlorothiazide oral RxNorm: 00180 oral No Start Date 08/26/2014 Inactive levothyroxine 50 mcg tablet RxNorm: 181869 1 Tablet(s) PO daily No Start Date 01/30/2015 Inactive potassium chloride ER 20 mEq tablet,extended release RxNorm: 026557 1 Tablet(s) PO daily No Start Date 06/21/2017 Inactive Invokana 100 mg tablet RxNorm: 5664409 1 Tablet(s) PO daily No Start Date 12/11/2014 Inactive Victoza 3-Darisuz 0.6 mg/0.1 mL (18 mg/3 mL) subcutaneous pen injector RxNorm: 305678 0.6 Milligram(s) SQ daily x2 weeks, then 1.2 mg SQ daily No Start Date 12/01/2015 Inactive Zetia 10 mg tablet RxNorm: 340249 1 Tablet(s) PO BID No Start Date 03/18/2016 Inactive gabapentin 300 mg capsule RxNorm: 903540 1 Capsule(s) PO BID No Start Date 08/13/2015 Inactive Lasix 40 mg tablet RxNorm: 454667 1 Tablet(s) PO BID No Start Date 04/14/2017 Inactive Coreg 3.125 mg tablet RxNorm: 206964 1 Tablet(s) PO BID with meals No Start Date 06/02/2017 Inactive Medication Administered No Medication Administered data Immunizations Vaccine Codes Date Status Influenza CVX: 141 11/25/2017 completed Influenza CVX: 141 12/17/2016 completed Influenza CVX: 141 11/14/2015 completed Influenza CVX: 141 12/04/2014 completed Assessments Condition Codes Effective Dates Type 2 diabetes mellitus with hyperglycemia ICD-10: E11.65 ICD-9: 250.00 11/25/2017 Essential (primary) hypertension ICD-10: I10 ICD-9: 401.1 11/25/2017 Carpal tunnel syndrome, left upper limb ICD-10: [...] (primary) hypertension ICD-10: I10 ICD-9: 401.9 03/19/2017 Major depressive disorder, recurrent, 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 [...] For Visit Effective Dates Notes diabetes mellitus 11/25/2017 diabetes mellitus 10/26/2017 diabetes mellitus 10/11/2017 diabetes mellitus 09/22/2017 Hospital Follow Up 07/06/2017 Hospital Follow Up 06/03/2017 arrhythmia 05/12/2017 Hospital Follow Up 04/15/2017 stress test and then shipped to [facility] Follow Up 03/19/2017 stress test and then shipped to [facility] diabetes mellitus 02/03/2017 headache 01/07/2017 diabetes mellitus 12/17/2016 diabetes mellitus 09/14/2016 diabetes mellitus 06/18/2016 medication follow up 04/16/2016 back pain 03/19/2016 back pain 11/14/2015 back pain 08/14/2015 diabetes mellitus 07/17/2015 Hospital Follow Up 03/25/2015 diabetes mellitus 12/04/2014 diabetes mellitus 08/14/2014 Results Observation Observation Code Item Item Code Result Date %Hba1C Yyl830 % HbA1c 84333-4 6.8 % 01/12/2018 %Hba1C Viq176 Gluc Ave 148 mg/dL 01/12/2018 Metabolic Ord15 [...] 89.9 fl 01/11/2018 Cbc With Differential Ord2 [place]% 7.8 % 01/11/2018 Cbc With Differential Ord2 MCH 28.6 pg 01/11/2018 Cbc With Differential Ord2 MCHC 31.8 pg 01/11/2018 Cbc With Differential Ord2 Eos% 2.2 % 01/11/2018 Cbc With Differential Ord2 Baso% 0.7 % 01/11/2018 Cbc With Differential Ord2 PLT 304 K/ul 01/11/2018 Cbc With Differential Ord2 RDW 15.4 % 01/11/2018 Cbc With Differential Ord2 Neut ABS# 3.09 K/ul 01/11/2018 Cbc With Differential Ord2 Lymph ABS# 1.70 K/ul 01/11/2018 Cbc With Differential Ord2 [place] ABS# 0.4 K/ul 01/11/2018 Cbc With Differential Ord2 Eos ABS# 0.1 K/ul 01/11/2018 Cbc With Differential Ord2 Baso ABS# 0.0 K/ul 01/11/2018 Magnesium Ord90 Mag 1.7 mg/dL 01/11/2018 Test(s) Not Perfromed [id number] Test(s) Not Performed Test(s) Not Performed. See Below: 09/20/2017 Test(s) Not Perfromed [id number] TEST NAME BNP 09/20/2017 Test(s) Not Perfromed [id number] Rejection Reason Patient Refused due to lack of coving diganosis 09/20/2017 Test(s) Not Perfromed [id number] COMMENT Dorita Notified 09/20 Test(s) Not Perfromed ZAW2843 Warp Splitter Miguel Mclaughlin 2017 B Type Natriuretic Peptide Mmj4772 B-LEAD HANDLER 889.00 pg/ml 2017 Cbc With Differential Ord2 [...] 28.9 pg 09/20/2017 Cbc With Differential Ord2 [place]% 5.6 % 09/20/2017 Cbc With Differential Ord2 MCHC 32.0 pg 09/20/2017 Cbc With Differential Ord2 Eos% 2.1 % 09/20/2017 Cbc With Differential Ord2 Baso% 0.5 % 09/20/2017 Cbc With Differential Ord2 PLT 350 K/ul 09/20/2017 Cbc With Differential Ord2 RDW 14.4 % 09/20/2017 Cbc With Differential Ord2 Neut ABS# 3.57 K/ul 09/20/2017 Cbc With Differential Ord2 Lymph ABS# 1.68 K/ul 09/20/2017 Cbc With Differential Ord2 [place] ABS# 0.3 K/ul 09/20/2017 Cbc With Differential Ord2 Eos ABS# 0.1 K/ul 09/20/2017 Cbc With Differential Ord2 Baso ABS# 0.0 K/ul 09/20/2017 %Hba1C Qgs504 % HbA1c 40117-2 7.9 % 09/20/2017 %Hba1C Ieu479 Gluc Ave 180 mg/dL 09/20/2017 Magnesium Ord90 [...] 29.6 % 07/07/2017 Cbc With Differential Ord2 [place]% 7.9 % 07/07/2017 Cbc With Differential Ord2 [...] 1.34 K/ul 07/07/2017 Cbc With Differential Ord2 [place] ABS# 0.4 K/ul 07/07/2017 Cbc With Differential Ord2 Eos ABS# 0.1 K/ul 07/07/2017 Cbc With Differential Ord2 Baso ABS# 0.0 K/ul 07/07/2017 Comp Metabolic Edx455 NA 142 mEq/L 07/07/2017 Comp Metabolic Fya227 K 4.3 mEq/L 07/07/2017 Comp Metabolic Uvl159 CL 105 mEq/L 07/07/2017 Comp Metabolic Nyx786 CO2 28.0 mEq/L 07/07/2017 Comp Metabolic Ejh470 ANION GAP 13 07/07/2017 Comp Metabolic Wzg049 GLUCOSE 197 mg/dL 07/07/2017 Comp Metabolic Vix729 Creat 1.1 mg/dL 07/07/2017 Comp Metabolic Seq694 eGFR 51 ml/min/1.73m2 07/07/2017 Comp Metabolic Ove279 BUN 21 mg/dL 07/07/2017 Comp Metabolic Btd202 B/C Ratio 18.9 Ratio 07/07/2017 Comp Metabolic Kuk558 CALCIUM 8.9 mg/dL 07/07/2017 Comp Metabolic Fyg167 ALK PHOS 51 U/L 07/07/2017 Comp Metabolic Shd231 AST(SGOT) 11 U/L 07/07/2017 Comp Metabolic Clb285 ALT(SGPT) 11 U/L 07/07/2017 Comp Metabolic Bip064 BILI T 0.3 mg/dL 07/07/2017 Comp Metabolic Jxp653 ALBUMIN 4.2 g/dL 07/07/2017 Comp Metabolic Vax481 TPRO 6.0 g/dL 07/07/2017 Comp Metabolic Dxv326 GLOB 1.8 g/dL 07/07/2017 Comp Metabolic Snq074 A/G Ratio 2.3 Ratio 07/07/2017 Comp Metabolic Qso162 Osmo 292 mOsmo 07/07/2017 Digoxin Ord9 DIGOXIN 1.3 NG/ML 07/07/2017 Tsh Ord6 TSH (3rd IS) 2.19 uIU/mL 07/07/2017 B Type Natriuretic Peptide Rdb2415 B-LEAD HANDLER 801.00 pg/ml 2017 Culture Urine [id number] URINE CULTURE SEE NOTES 04/19/2017 Culture Urine [id number] Continued Results 04/19/2017 Urine Culture Ucult Complete >100,000 col/ml aerobic growth sent to ref lab 04/16/2017 Comp Metabolic Zta622 NA 140 mEq/L 01/26/2017 Comp Metabolic Myc486 K 4.6 mEq/L 01/26/2017 Comp Metabolic Shh475 CL 102 mEq/L 01/26/2017 Comp Metabolic Cdc929 CO2 28.0 mEq/L 01/26/2017 Comp Metabolic Jtb352 ANION GAP 15 01/26/2017 Comp Metabolic Rnd802 GLUCOSE 173 mg/dL 01/26/2017 Comp Metabolic Chu607 Creat 1.0 mg/dL 01/26/2017 Comp Metabolic Skl206 eGFR 56 ml/min/1.73m2 01/26/2017 Comp Metabolic Rkk932 BUN 23 mg/dL 01/26/2017 Comp Metabolic Aae477 B/C Ratio 22.5 Ratio 01/26/2017 Comp Metabolic Pwg115 CALCIUM 9.4 mg/dL 01/26/2017 Comp Metabolic Gcs683 ALK PHOS 52 U/L 01/26/2017 Comp Metabolic Qsr310 AST(SGOT) 12 U/L 01/26/2017 Comp Metabolic Bts435 ALT(SGPT) 12 U/L 01/26/2017 Comp Metabolic Mrw315 BILI T 0.5 mg/dL 01/26/2017 Comp Metabolic Iqy267 ALBUMIN 4.4 g/dL 01/26/2017 Comp Metabolic Pev869 TPRO 6.5 g/dL 01/26/2017 Comp Metabolic Ooa100 GLOB 2.1 g/dL 01/26/2017 Comp Metabolic Qkw086 A/G Ratio 2.1 Ratio 01/26/2017 Comp Metabolic Tdk559 Osmo 287 mOsmo 01/26/2017 Cbc With Differential [...] 29.2 pg 01/26/2017 Cbc With Differential Ord2 [place]% 4.9 % 01/26/2017 Cbc With Differential Ord2 MCHC 32.9 pg 01/26/2017 Cbc With Differential Ord2 Eos% 1.1 % 01/26/2017 Cbc With Differential Ord2 PLT 345 K/ul 01/26/2017 Cbc With Differential Ord2 Baso% 0.5 % 01/26/2017 Cbc With Differential Ord2 Neut ABS# 5.17 K/ul 01/26/2017 Cbc With Differential Ord2 RDW 14.3 % 01/26/2017 Cbc With Differential Ord2 Lymph ABS# 1.75 K/ul 01/26/2017 Cbc With Differential Ord2 [place] ABS# 0.4 K/ul 01/26/2017 Cbc With Differential Ord2 Eos ABS# 0.1 K/ul 01/26/2017 Cbc With Differential Ord2 Baso ABS# 0.0 K/ul 01/26/2017 %Hba1C Nyn053 % HbA1c 16421-3 7.8 % 01/26/2017 %Hba1C Nmo586 Gluc Ave 177 mg/dL 01/26/2017 Lipid Ord30 CHOL 239 mg/dL 01/26/2017 Lipid Ord30 HDL 40.0 mg/dl 01/26/2017 Lipid Ord30 TRIG 325 mg/dL 01/26/2017 Lipid Ord30 LDL 134 mg/dL 01/26/2017 Lipid Ord30 C/HDL 6.0 Ratio 01/26/2017 Free T4 Vpn022 FREE T4 0.95 ng/dL 01/26/2017 Tsh Ord6 [...] Metabolic Ord15 CALCIUM 9.0 mg/dL 09/08/2016 %Hba1C Evl164 % HbA1c 67796-2 7.5 % 09/08/2016 %Hba1C Bcz334 Gluc Ave 169 mg/dL 09/08/2016 Tsh Ord6 hTSH II 2.64 uIU/mL 03/13/2016 %Hba1C Wxk831 % HbA1c 93761-4 8.2 % 03/13/2016 %Hba1C Oku401 Gluc Ave 189 mg/dL 03/13/2016 Lipid Ord30 CHOL 233 mg/dL 03/13/2016 Lipid Ord30 HDL 46.0 mg/dl 03/13/2016 Lipid Ord30 TRIG 276 mg/dL 03/13/2016 Lipid Ord30 LDL 132 mg/dL 03/13/2016 Lipid Ord30 C/HDL 5.1 Ratio 03/13/2016 Free T4 Kqp258 FREE T4 0.94 ng/dL 03/13/2016 Cbc With [...] 29.5 % 03/13/2016 Cbc With Differential Ord2 [place]% 6.1 % 03/13/2016 Cbc With Differential Ord2 [...] 1.63 K/ul 03/13/2016 Cbc With Differential Ord2 [place] ABS# 0.3 K/ul 03/13/2016 Cbc With Differential Ord2 Eos ABS# 0.1 K/ul 03/13/2016 Cbc With Differential Ord2 Baso ABS# 0.0 K/ul 03/13/2016 Comp Metabolic Ttn891 NA 139 mEq/L 03/13/2016 Comp Metabolic Jgx362 K 4.3 mEq/L 03/13/2016 Comp Metabolic Xmh738 CL 103 mEq/L 03/13/2016 Comp Metabolic Qdi288 CO2 28.0 mEq/L 03/13/2016 Comp Metabolic Xtg477 ANION GAP 12 03/13/2016 Comp Metabolic Yzx016 GLUCOSE 200 mg/dL 03/13/2016 Comp Metabolic Wnf119 Creat 0.9 mg/dL 03/13/2016 Comp Metabolic Cft632 eGFR 69 ml/min/1.73m2 03/13/2016 Comp Metabolic Onn292 BUN 19 mg/dL 03/13/2016 Comp Metabolic Dfz814 B/C Ratio 22.4 Ratio 03/13/2016 Comp Metabolic Weh501 CALCIUM 9.0 mg/dL 03/13/2016 Comp Metabolic Wco604 ALK PHOS 57 U/L 03/13/2016 Comp Metabolic Cnp125 AST(SGOT) 13 U/L 03/13/2016 Comp Metabolic Gto187 ALT(SGPT) 16 U/L 03/13/2016 Comp Metabolic Men455 BILI T 0.4 mg/dL 03/13/2016 Comp Metabolic Tvt236 ALBUMIN 4.2 g/dL 03/13/2016 Comp Metabolic Qjv829 TPRO 6.3 g/dL 03/13/2016 Comp Metabolic Zks636 GLOB 2.1 g/dL 03/13/2016 Comp Metabolic Maa616 A/G Ratio 2.0 Ratio 03/13/2016 Comp Metabolic Rxn563 Osmo 285 mOsmo 03/13/2016 %Hba1C Oud175 % HbA1c 28031-4 8.3 % 11/14/2015 %Hba1C Hzd683 Gluc Ave 192 mg/dL 11/14/2015 Lipid Ord30 CHOL 210 mg/dL 07/19/2015 Lipid Ord30 HDL 43.0 mg/dl 07/19/2015 Lipid Ord30 TRIG 311 mg/dL 07/19/2015 Lipid Ord30 LDL 105 mg/dL 07/19/2015 Lipid Ord30 C/HDL 4.9 Ratio 07/19/2015 %Hba1C Vql715 % HbA1c 63831-7 7.6 % 07/19/2015 %Hba1C Asc295 Gluc Ave 171 mg/dL 07/19/2015 Cbc With [...] 28.8 pg 07/19/2015 Cbc With Differential Ord2 [place]% 6.1 % 07/19/2015 Cbc With Differential Ord2 Eos% 1.3 % 07/19/2015 Cbc With Differential Ord2 MCHC 32.9 pg 07/19/2015 Cbc With Differential Ord2 PLT 304 K/ul 07/19/2015 Cbc With Differential Ord2 Baso% 0.4 % 07/19/2015 Cbc With Differential Ord2 Neut ABS# 3.33 K/ul 07/19/2015 Cbc With Differential Ord2 RDW 14.6 % 07/19/2015 Cbc With Differential Ord2 Lymph ABS# 1.63 K/ul 07/19/2015 Cbc With Differential Ord2 [place] ABS# 0.3 K/ul 07/19/2015 Cbc With Differential Ord2 Eos ABS# 0.1 K/ul 07/19/2015 Cbc With Differential Ord2 Baso ABS# 0.0 K/ul 07/19/2015 Cbc With Differential Ord2 New Analyzer Notice Please note new ref ranges starting 03-27-2015 due to implemntation of new five part differential hematolgy analyzer. 07/19/2015 Comp Metabolic Own074 NA 138 mEq/L 07/19/2015 Comp Metabolic Nlr848 K 4.3 mEq/L 07/19/2015 Comp Metabolic Wta147 CL 100 mEq/L 07/19/2015 Comp Metabolic Faf604 CO2 33.0 mEq/L 07/19/2015 Comp Metabolic Zcy806 ANION GAP 9 07/19/2015 Comp Metabolic Wwa735 GLUCOSE 149 mg/dL 07/19/2015 Comp Metabolic Jew265 Creat 0.9 mg/dL 07/19/2015 Comp Metabolic Byx389 eGFR 62 ml/min/1.73m2 07/19/2015 Comp Metabolic Big570 BUN 19 mg/dL 07/19/2015 Comp Metabolic Ebl301 B/C Ratio 20.2 Ratio 07/19/2015 Comp Metabolic Gjj391 CALCIUM 9.5 mg/dL 07/19/2015 Comp Metabolic Sib793 ALK PHOS 52 U/L 07/19/2015 Comp Metabolic Wan711 AST(SGOT) 15 U/L 07/19/2015 Comp Metabolic Uce401 ALT(SGPT) 14 U/L 07/19/2015 Comp Metabolic Mdx317 BILI T 0.5 mg/dL 07/19/2015 Comp Metabolic Fir992 ALBUMIN 4.4 g/dL 07/19/2015 Comp Metabolic Iid247 TPRO 6.4 g/dL 07/19/2015 Comp Metabolic Vkk361 GLOB 2.0 g/dL 07/19/2015 Comp Metabolic Aga714 A/G Ratio 2.2 Ratio 07/19/2015 Comp Metabolic Vwl839 Osmo 281 mOsmo 07/19/2015 Free T4 Eor319 FREE T4 0.92 ng/dL 07/19/2015 Tsh Ord6 hTSH II 1.95 uIU/mL 07/19/2015 Microalbumin Xyx680 MicroAlb 0.4 mg/dL 07/19/2015 Comp Metabolic Fem063 NA 137 mEq/L 12/04/2014 Comp Metabolic Bux574 K 4.0 mEq/L 12/04/2014 Comp Metabolic Wdm763 CL 100 mEq/L 12/04/2014 Comp Metabolic Ynp102 CO2 29.0 mEq/L 12/04/2014 Comp Metabolic Yut884 ANION GAP 12 12/04/2014 Comp Metabolic Mmn597 GLUCOSE 171 mg/dL 12/04/2014 Comp Metabolic Wcf491 Creat 1.0 mg/dL 12/04/2014 Comp Metabolic Dxo271 eGFR 60 ml/min/1.73m2 12/04/2014 Comp Metabolic Jbn916 BUN 25 mg/dL 12/04/2014 Comp Metabolic Xrj497 B/C Ratio 25.8 Ratio 12/04/2014 Comp Metabolic Vsv181 CALCIUM 9.4 mg/dL 12/04/2014 Comp Metabolic Pwj448 ALK PHOS 60 U/L 12/04/2014 Comp Metabolic Maw791 AST(SGOT) 13 U/L 12/04/2014 Comp Metabolic Wdb937 ALT(SGPT) 17 U/L 12/04/2014 Comp Metabolic Flh610 BILI T 0.4 mg/dL 12/04/2014 Comp Metabolic Qhi712 ALBUMIN 4.4 g/dL 12/04/2014 Comp Metabolic Dvj672 TPRO 6.9 g/dL 12/04/2014 Comp Metabolic Ptd464 GLOB 2.5 g/dL 12/04/2014 Comp Metabolic Jbn551 A/G Ratio 1.8 Ratio 12/04/2014 Comp Metabolic Nxm115 Osmo 282 mOsmo 12/04/2014 Tsh Ord6 hTSH II 1.78 uIU/mL 12/04/2014 %Hba1C Lai916 % HbA1c 94788-9 8.3 % 12/04/2014 %Hba1C Xnq836 Gluc Ave 192 mg/dL 12/04/2014 Free T4 Jnd877 FREE T4 0.85 ng/dL 12/04/2014 Lipid Ord30 [...] hygiene 10/11/2017 None Full Exam - General 1995 Eyes conjunctiva /eyelids Overall: conjunctiva clear 10/11/2017 [...] NO PRSV 4 ANABELLE 3 YRS+ CPT-4: 95192 11/25/2017 GLUC MONITOR CONT PHYS I&R CPT-4: 46495 10/26/2017 GLUCOSE MONITORING CONT CPT-4: 34772 10/11/2017 URINALYSIS NONAUTO W/O SCOPE CPT-4: 69258 04/15/2017 FLU VAC NO PRSV 4 ANABELLE 3 YRS+ CPT-4: 15591 12/17/2016 ADMIN INFLUENZA VIRUS VAC CPT-4: G0008 12/17/2016 FLU VACC PRSV FREE INC ANTIG Formatting Model/CDA Sections, Assigned to/Nery Daniels CPT-4: [id number] 11/14/2015 ADMIN INFLUENZA VIRUS VAC CPT-4: G0008 11/14/2015 ADMIN INFLUENZA VIRUS VAC Formatting Model/CDA Sections, Assigned to/Nery Daniels CPT-4: [id number] 12/04/2014 FLU VACC 4 ANABELLE 3 YRS PLUS IM SNOMED CT: [id number] CPT-4: 36571 12/04/2014 Vital Signs Date Vital 11/25/2017 Blood Pressure 1: 148/72 Code : 8480-6 BMI: 30.9 Code : 71823-4 Heart Rate 1 : 62 bpm Height: 5' SpO2: 98% Weight: 158 lbs 10/26/2017 Blood Pressure 1: 156/74 Code : 8480-6 BMI: 31.2 Code : 71314-1 Heart Rate 1 : 71 bpm Height: 5' SpO2: 98% Weight: 160 lbs 10/11/2017 Blood Pressure 1: 128/70 Code : 8480-6 BMI: 30.9 Code : 59965-4 Heart Rate 1 : 70 bpm Height: 5' SpO2: 95% Weight: 158 lbs 09/22/2017 Blood Pressure 1: 110/52 Code : 8480-6 BMI: 30.9 Code : 45085-0 Heart Rate 1 : 72 bpm Height: 5' SpO2: 99% Weight: 158 lbs 07/06/2017 Blood Pressure 1: 120/85 Code : 8480-6 BMI: 31.4 Code : 12442-6 Heart Rate 1 : 74 bpm Height: 5' SpO2: 92% Weight: 161 lbs 06/03/2017 Blood Pressure 1: 120/62 Code : 8480-6 BMI: 31.1 Code : 34355-3 Heart Rate 1 : 73 bpm Height: 5' SpO2: 99% Weight: 159 lbs 05/12/2017 Blood Pressure 1: 132/68 Code : 8480-6 BMI: 32.4 Code : 00408-3 Heart Rate 1 : 95 bpm Height: 5' SpO2: 97% Weight: 166 lbs 04/15/2017 Blood Pressure 1: 128/84 Code : 8480-6 BMI: 32.4 Code : 73063-7 Heart Rate 1 : 62 bpm Height: 5' SpO2: 97% Weight: 166 lbs 03/19/2017 Blood Pressure 1: 112/60 Code : 8480-6 BMI: 32.0 Code : 62841-0 Height: 5' Weight: 164 lbs 02/03/2017 Blood Pressure 1: 128/76 Code : 8480-6 BMI: 33.4 Code : 58367-6 Heart Rate 1 : 91 bpm Height: 5' SpO2: 99% Weight: 171 lbs 01/07/2017 Blood Pressure 1: 126/74 Code : 8480-6 BMI: 34.2 Code : 19205-7 Heart Rate 1 : 83 bpm Height: 5' SpO2: 97% Weight: 175 lbs 12/17/2016 Blood Pressure 1: 122/72 Code : 8480-6 BMI: 34.0 Code : 53540-1 Heart Rate 1 : 78 bpm Height: 5' SpO2: 97% Weight: 174 lbs 09/14/2016 Blood Pressure 1: 128/86 Code : 8480-6 BMI: 33.8 Code : 81660-5 Heart Rate 1 : 88 bpm Height: 5' SpO2: 96% Weight: 173 lbs 06/18/2016 Blood Pressure 1: 122/74 Code : 8480-6 BMI: 34.8 Code : 63370-1 Heart Rate 1 : 78 bpm Height: 5' SpO2: 98% Weight: 178 lbs 04/16/2016 Blood Pressure 1: 134/68 Code : 8480-6 BMI: 35.0 Code : 32958-9 Heart Rate 1 : 67 bpm Height: 5' SpO2: 97% Weight: 179 lbs 03/19/2016 Blood Pressure 1: 132/74 Code : 8480-6 BMI: 34.6 Code : 58159-1 Heart Rate 1 : 74 bpm Height: 5' SpO2: 97% Weight: 177 lbs 11/14/2015 Blood Pressure 1: 132/70 Code : 8480-6 BMI: 35.2 Code : 34246-9 Heart Rate 1 : 68 bpm Height: 5' Weight: 180 lbs 08/14/2015 Blood Pressure 1: 122/74 Code : 8480-6 BMI: 33.8 Code : 43923-9 Heart Rate 1 : 73 bpm Height: 5' SpO2: 93% Weight: 173 lbs 07/17/2015 Blood Pressure 1: 138/78 Code : 8480-6 BMI: 34.0 Code : 65146-2 Heart Rate 1 : 85 bpm Height: 5' SpO2: 97% Weight: 174 lbs 03/25/2015 Blood Pressure 1: 130/78 Code : 8480-6 BMI: 33.2 Code : 79555-6 Heart Rate 1 : 77 bpm Height: 5' SpO2: 97% Weight: 170 lbs 12/04/2014 Blood Pressure 1: 120/74 Code : 8480-6 BMI: 35.4 Code : 86917-9 Heart Rate 1 : 67 bpm Height: 5' SpO2: 94% Weight: 181 lbs 5 oz 08/14/2014 Blood Pressure 1: 132/68 Code : 8480-6 BMI: 32.1 Code : 99225-8 Heart Rate 1 : 62 bpm Height: 5'3" SpO2: 97% Weight: 184 lbs Functional Status No Functional Status data History of Present Illness Symptom Name Status Result Effective Date Notes diabetes mellitus Quality insulin dependent 11/25/2017 None [...] data Encounters Encounter Performer Location Codes Date ([id number]) 49694 EST. PATIENT, LEVEL IV Diagnosis: Type 2 diabetes mellitus with hyperglycemia[ICD10: E11.65] Diagnosis: Essential (primary) hypertension[ICD10: I10] Diagnosis: Encounter for immunization[ICD10: Z23] Diagnosis: Carpal tunnel syndrome, left upper limb[ICD10: G56.02] [facility] CPT-4: 57766 11/25/2017 ([id number]) 01822 EST. PATIENT, LEVEL III Diagnosis: Type 2 diabetes mellitus with hyperglycemia[ICD10: E11.65] [facility] CPT-4: 82251 10/26/2017 ([id number]) Miscellaneous no charge Diagnosis: Type 2 diabetes mellitus with hyperglycemia[ICD10: E11.65] Claudia Nicole MD, [facility] CPT-4: 75720 10/18/2017 ([id number]) 48131 EST. 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 PATIENT, LEVEL IV Diagnosis: Type 2 diabetes mellitus with hyperglycemia[ICD10: E11.65] Diagnosis: Paroxysmal atrial fibrillation[ICD10: I48.0] Diagnosis: Essential (primary) hypertension[ICD10: I10] Mila Nicole MD, [facility] CPT-4: 64052 07/06/2017 ([id number]) 23651 EST. PATIENT, LEVEL IV Diagnosis: Essential (primary) hypertension[ICD10: I10] Diagnosis: Type 2 diabetes mellitus with hyperglycemia[ICD10: E11.65] Diagnosis: Paroxysmal atrial fibrillation[ICD10: I48.0] Claudia Nicole MD, [facility] CPT-4: 74203 06/03/2017 18845 EST. PATIENT, LEVEL III Diagnosis: Generalized anxiety disorder[ICD10: F41.1] Diagnosis: Major depressive disorder, recurrent, moderate[ICD10: F33.1] Diagnosis: Paroxysmal tachycardia, unspecified[ICD10: I47.9] Gardenia Nicole MD, [facility] CPT-4: 39496 05/12/2017 ([id number]) 34569 EST. PATIENT, LEVEL IV Diagnosis: Essential (primary) hypertension[ICD10: I10] Diagnosis: Cough[ICD10: R05] Diagnosis: Dysuria[ICD10: R30.0] Mila Nicole MD, [facility] CPT-4: 22718 04/15/2017 ([id number]) 61377 EST. PATIENT, LEVEL IV Diagnosis: Type 2 diabetes mellitus with hyperglycemia[ICD10: E11.65] Diagnosis: Essential (primary) hypertension[ICD10: I10] Mila Nicole MD, [facility] CPT-4: 96731 03/19/2017 ([id number]) 19818 EST. PATIENT, LEVEL III Diagnosis: Type 2 diabetes mellitus with hyperglycemia[ICD10: E11.65] Mila Nicole MD [facility] CPT-4: 62172 02/03/2017 42939 EST. PATIENT, LEVEL IV Diagnosis: Generalized anxiety disorder[ICD10: F41.1] Diagnosis: Type 2 diabetes mellitus with hyperglycemia[ICD10: E11.65] Diagnosis: Essential (primary) hypertension[ICD10: I10] Gardenia Nicole MD, [facility] CPT-4: 79840 01/07/2017 ([id number]) 03052 EST. PATIENT, LEVEL III Diagnosis: Type 2 diabetes mellitus with hyperglycemia[ICD10: E11.65] Diagnosis: Encounter for immunization[ICD10: Z23] Mila Nicole MD [facility] CPT-4: 51572 12/17/2016 ([id number]) 76828 EST. PATIENT, LEVEL IV Diagnosis: Type 2 diabetes mellitus with hyperglycemia[ICD10: E11.65] Diagnosis: Essential (primary) hypertension[ICD10: I10] Diagnosis: Major depressive disorder, recurrent, mild[ICD10: F33.0] Mila Nicole MD, [facility] CPT-4: 27345 09/14/2016 ([id number]) 67800 EST. 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 PATIENT, LEVEL IV Diagnosis: Type 2 diabetes mellitus with hyperglycemia[ICD10: E11.65] Diagnosis: Essential (primary) hypertension[ICD10: I10] Mila Nicole MD, [facility] CPT-4: 77494 04/16/2016 ([id number]) 06001 EST. 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 PATIENT, LEVEL IV Diagnosis: Type 2 diabetes mellitus with hyperglycemia[ICD10: E11.65] Diagnosis: Encounter for immunization[ICD10: Z23] Diagnosis: Essential (primary) hypertension[ICD10: I10] Mila Nicole MD, [facility] CPT-4: 88788 11/14/2015 ([id number]) 23287 EST. PATIENT, LEVEL IV Diagnosis: Type 2 diabetes mellitus with hyperglycemia[ICD10: E11.65] Diagnosis: Essential (primary) hypertension[ICD10: I10] Diagnosis: Low back pain[ICD10: M54.5] [facility] CPT- 4: 79113 08/14/2015 ([id number]) 47192 EST. PATIENT, LEVEL IV Diagnosis: Type 2 diabetes mellitus with hyperglycemia[ICD10: E11.65] Diagnosis: Essential (primary) hypertension[ICD10: I10] Diagnosis: Hypothyroidism, unspecified[ICD10: E03.9] [facility] CPT-4: 31370 07/17/2015 ([id number]) 60683 EST. PATIENT, LEVEL IV Diagnosis: Essential (primary) hypertension[ICD10: I10] Diagnosis: Type 2 diabetes mellitus with hyperglycemia[ICD10: E11.65] Diagnosis: Headache[ICD10: R51] [facility] CPT-4: 38989 03/25/2015 ([id number]) 14220 EST. PATIENT, LEVEL IV Diagnosis: ESSENTIAL HYPERTENSION[ICD9: 401.9] Diagnosis: DIABETES TYPE II[ICD9: 250.00] Diagnosis: Aortic stenosis[ICD9: 424.1] [facility] CPT- 4: 63812 12/04/2014 ([id number]) OFFICE VISIT, NEW - LEVEL 4 Diagnosis: ESSENTIAL HYPERTENSION[ICD9: 401.9] Diagnosis: Diabetes mellitus out of control[ICD9: 250.02] [facility] CPT-4: 49469 08/14/2014 Plan of Care Planned Activity Notes Codes Status Date Appointment: Claudia Pruitt WPtel: [address] [place], [place] [phone] (15 min) Moderate 11/25/2017 Patient Education: Patient Medication Summary Completed 11/25/2017 App[facility]ment: [phone] [facility] [place] (15 min) Moderate 10/28/2017 Appointment: Claudia Pruitt WPtel: [phone] [phone] [place] (15 min) Moderate 10/26/2017 Patient Education: Patient Medication Summary Completed 10/26/2017 Appointment: Nurse Visit 10/18/2017 Patient Education: Patient Medication Summary Completed 10/18/2017 Appointment: Claudia Pruitt WPtel: [phone] [phone] [place] (30 min) Complex 10/11/2017 Patient Education: Patient Medication Summary Completed 10/11/2017 Patient Education: Patient Medication Summary Completed 09/22/2017 Appointment: Mila Nicole WPtel: [phone] [facility] [place] (15 min) Moderate 09/13/2017 Appointment: [facility] [phone] [facility] [place] (15 min) Moderate 09/07/2017 Appointment: [phone] [facility] [place] (15 min) Moderate 07/06/2017 Patient Education: Patient Medication Summary Completed 07/06/2017 App[facility]ment: [facility] [phone] [facility] [place] (15 min) Moderate 06/07/2017 Appointment: Claudia Pruitt WPtel: [phone] [phone] [place] (30 min) Complex 06/03/2017 Patient Education: Patient Medication Summary Completed 06/03/2017 App[facility]ment[phone] [facility] [place] ([facility] min) Complex 05/12/2017 Patient Education: Patient Medication Summary Completed 05/12/2017 App[facility]ment: [facility] [phone] [facility] [place] (15 min) Moderate 04/15/2017 Patient Education: Patient Medication Summary Completed 04/15/2017 Appointment: [facility] [phone] [facility] [place] (15 min) Moderate 03/19/2017 Patient Education: Patient Medication Summary Completed 03/19/2017 App[facility]ment: [facility] [phone] [facility] [place] (15 min) Moderate 02/24/2017 Appointment: [facility] [phone] [facility] [place] (15 min) Moderate 02/03/2017 Patient Education: Patient Medication Summary Completed 02/03/2017 Patient Education: Obesity Completed 02/03/2017 Appointment: [facility] [phone] [facility] [place] (30 min) Complex 01/07/2017 Patient Education: Patient Medication Summary Completed 01/07/2017 Patient Education: Obesity Completed 01/07/2017 Patient Education: Hypertension Completed 01/07/2017 Appointment: [facility] [phone] [facility] [place] (15 min) Moderate 12/17/2016 Patient Education: Patient Medication Summary Completed 12/17/2016 Patient Education: Obesity Completed 12/17/2016 Appointment: [facility] [phone] [facility] [place] (15 min) Moderate 12/14/2016 Appointment: [facility] [phone] [facility] [place] (15 min) Moderate 09/14/2016 Patient Education: Patient Medication Summary Completed 09/14/2016 Patient Education: Obesity Completed 09/14/2016 Patient Education: Hypertension Completed 09/14/2016 Appointment: Mlia Nicole WPtel: [phone] [facility] [place] (15 min) Moderate 06/18/2016 Patient Education: Patient Medication Summary Completed 06/18/2016 Patient Education: Obesity Completed 06/18/2016 Patient Education: Hypertension Completed 06/18/2016 Appointment: [facility] [phone] [facility] [place] (15 min) Moderate 04/16/2016 Patient Education: Patient Medication Summary Completed 04/16/2016 Patient Education: Obesity Completed 04/16/2016 Patient Education: Hypertension Completed 04/16/2016 Appointment: [facility] [phone] [facility] [place] (15 min) Moderate 03/19/2016 Patient Education: Patient Medication Summary Completed 03/19/2016 Patient Education: Obesity Completed 03/19/2016 Patient Education: Hypertension Completed 03/19/2016 Appointment: Mila Nicole WPtel: [facility] [place] (15 min) Moderate 11/14/2015 Patient Education: Patient Medication Summary Completed 11/14/2015 Patient Education: Obesity Completed 11/14/2015 Patient Education: Hypertension Completed 11/14/2015 Patient Education: Patient Medication Summary Completed 08/14/2015 Patient Education: Obesity Completed 08/14/2015 Appointment: [facility] [phone] [facility] [place] (15 min) Moderate 07/17/2015 Patient Education: Patient Medication Summary Completed 07/17/2015 Patient Education: Obesity Completed 07/17/2015 Appointment: (30 min) Complex 03/25/2015 Patient Education: Patient Medication Summary Completed 03/25/2015 Patient Education: Hypertension Completed 03/25/2015 Appointment: [facility] [phone] [facility] [place] (15 min) Moderate 01/14/2015 Appointment: Mila Nicole WPtel: [facility] [place] (15 min) Moderate 12/04/2014 Patient Education: Patient Medication Summary Completed 12/04/2014 Patient Education: Hypertension Completed 12/04/2014 Appointment: Mila Nicole WPtel: [facility] [place] (S[facility] New Patient 08/14/2014 Patient Education: Patient Medication Summary Completed 08/14/2014 Patient Education: Hypertension Completed 08/14/2014 Instructions No Instructions
--- OUTSIDE RECORDS SUMMARY | 2018-03-30 11:04 | XMS REPORT | CCD ---
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 Name Role Phone PP Unavailable CCM Unavailable Summary Purpose Interface Exchange Insurance Providers Payer name Policy type / Coverage type Covered constitution party ID Effective Begin Date Effective End Date WPS Medicare Part B Medicare Part B [id number] Unknown AARP Medicare Part B [id number] Unknown Family history Mother Diagnosis Age At [...] Unknown 3 08/14/[address]: 372682182 Never smoker 08/14/[address]: 929474769 Never drinks alcohol 08/14/2014 Allergies, Adverse Reactions, Alerts Substance Reaction Codes Entered Date Inactivated Date Status * OTHER REACTION - SEE ANSWER BOX Invokana, Victoza Unknown 07/2017 No Inactive Date Active Paxil has blurred vision RxNorm: 632926 08/14/2014 No Inactive Date Active Lipitor RxNorm: 93454 08/14/2014 No Inactive Date Active Past Medical [...] Insulin 100 unit/mL (3 mL) subcutaneous RxNorm: 7446751 20 Unit(s) SQ daily 11/25/201705/23 Active UPDATE RX metformin 500 mg tablet RxNorm: 747204 1 Tablet(s) PO UD 1.5 in morning, noon and 1 at bedtime 10/28/2017 10/22/2018 Active Basaglar KwikPen U-100 Insulin 100 unit/mL (3 mL) subcutaneous RxNorm: 8408903 18 Unit(s) SQ daily 10/26/201711/24 Inactive UPDATE RX levothyroxine 50 mcg tablet RxNorm: 693937 TAKE 1 TABLET BY MOUTH ONCE DAILY 10/15/2017 06/11/2018 Active Generic For:SYNTHROID 50MCG TAB 10/15/2017 9:59:00 AM escitalopram 10 mg tablet RxNorm: 444576 1 Tablet(s) PO QPM 01/201809/16/2018 Active Generic For:LEXAPRO 5MG 01/07/2017 9:05:43 AM Basaglar KwikPen U-100 Insulin 100 unit/mL (3 mL) subcutaneous RxNorm: 0890978 15 Unit(s) SQ daily 09/22/201710/25 Inactive potassium chloride ER 20 mEq tablet,extended release RxNorm: 503900 1 Tablet(s) PO daily 06/22/2017 01/17/2018 Active Lantus Solostar U-100 Insulin 100 unit/mL (3 mL) subcutaneous pen RxNorm: 298868 10 Unit(s) SQ daily 06/08/2017 Inactive Basaglar KwikPen U-100 Insulin 100 unit/mL (3 mL) subcutaneous RxNorm: 4124722 10 Unit(s) SQ daily 06/08/201706/07 Inactive Basaglar KwikPen U-100 Insulin 100 unit/mL (3 mL) subcutaneous RxNorm: 4339632 10 Unit(s) SQ daily 06/08/201709/21 Inactive Lexapro 5 mg tablet RxNorm: 622144 1 Tablet(s) PO daily 201711/27/2017 Inactive Lexapro 5 mg tablet RxNorm: 755309 1 Tablet(s) PO daily 201705/31/2017 Inactive bisoprolol 5 mg-hydrochlorothiazide 6.25 mg tablet RxNorm: 367990 1 Tablet(s) PO BID 05/04/2017 06/02/2017 Inactive Keflex 500 mg capsule RxNorm: 006798 1 Capsule(s) PO QID 201704/21/2017 Inactive Lantus Solostar 100 unit/mL (3 mL) subcutaneous insulin pen RxNorm: 124789 10 Unit(s) SQ daily 02/03/2017 06/07/2017 Inactive levothyroxine 50 mcg tablet RxNorm: 850320 TAKE 1 TABLET BY MOUTH ONCE DAILY 02/01/2017 09/28/2017 Inactive Generic For:SYNTHROID 50MCG TAB 02/01/2017 9:20:59 AM gabapentin 600 mg tablet RxNorm: 786778 1 Capsule(s) PO TID 01/21/2018 Active Lexapro 5 mg tablet RxNorm: 158927 TAKE 1 TABLET BY MOUTH AT BEDTIME 01/07/2017 09/21/2017 Inactive Generic For:LEXAPRO 5MG 01/07/2017 9:05:43 AM Victoza 2-Dariusz 0.6 mg/0.1 mL (18 mg/3 mL) subcutaneous pen injector RxNorm: 719675 1.8 Milligram(s) SQ daily 12/17/201602/07 Inactive Victoza 3-Dariusz 0.6 mg/0.1 mL (18 mg/3 mL) subcutaneous pen injector RxNorm: 787202 Milligram(s) SQ 12/17/2016 02/07/2017 Inactive Zetia 10 mg tablet RxNorm: 863952 1 Tablet(s) PO daily 201611/11/2017 Inactive fluticasone 50 mcg/actuation nasal spray,suspension RxNorm: 7553038 [place] NASAL ONE SPRAY IN EACH NOSTRIL TWICE DAILY 09/28/2016 04/25/2017 Inactive Victoza 2-Dariusz 0.6 mg/0.1 mL (18 mg/3 mL) subcutaneous pen injector RxNorm: 143251 1.2 Milligram(s) SQ daily 09/14/201612/16 Inactive Lexapro 5 mg tablet RxNorm: 286206 1 Tablet(s) PO QHS 201612/12/2016 Inactive metformin 500 mg tablet RxNorm: 701081 1 Tablet(s) PO UD 1.5 in morning, noon and 1 at bedtime 09/08/2016 09/02/2017 Inactive glimepiride 4 mg tablet RxNorm: 917347 TAKE 1 TABLET BY MOUTH ONCE DAILY 07/31/2016 09/13/2016 Inactive Generic For:*AMARYL 4MG 07/31/2016 9:02:38 AM Victoza 2-Dariusz 0.6 mg/0.1 mL (18 mg/3 mL) subcutaneous pen injector RxNorm: 338510 1.2 Milligram(s) SQ daily 05/18/201609/13 Inactive Victoza 2-Dariusz 0.6 mg/0.1 mL (18 mg/3 mL) subcutaneous pen injector RxNorm: 973907 1.2 Milligram(s) SQ daily 04/16/201605/17 Inactive levothyroxine 50 mcg tablet RxNorm: 191131 TAKE 1 TABLET BY MOUTH ONCE DAILY 04/08/2016 12/03/2016 Inactive Generic For:SYNTHROID 50MCG TAB 04/08/2016 9:05:40 AM levothyroxine 50 mcg tablet RxNorm: 771218 1 Tablet(s) PO daily TAKE 1 TABLET BY MOUTH ONCE DAILY 04/08/2016 12/03/2016 Inactive Generic For:SYNTHROID 50MCG TAB N O T I C E PRESCRIPTION PREVIOUSLY AUTHORIZED BY DOCTOR:HENRY BAIG [phone] bisoprolol 5 mg-hydrochlorothiazide 6.25 mg tablet RxNorm: 460847 1 Tablet(s) PO BID 03/23/2016 03/17/2017 Inactive Victoza 2-Dariusz 0.6 mg/0.1 mL (18 mg/3 mL) subcutaneous pen injector RxNorm: 176901 0.6 Milligram(s) SQ daily 03/19/201604/15 Inactive Lexapro 5 mg tablet RxNorm: 071799 1 Tablet(s) PO QHS 201606/16/2016 Inactive gabapentin 600 mg tablet RxNorm: 135441 1 Capsule(s) PO TID 07/201601/26/2017 Inactive glimepiride 4 mg tablet RxNorm: 533901 1 Tablet(s) PO daily 06/05/2016 Inactive Victoza 3-Dariusz 0.6 mg/0.1 mL (18 mg/3 mL) subcutaneous pen injector RxNorm: 629643 0.6 Milligram(s) SQ daily x2 weeks, then 1.2 mg SQ daily 03/18/2016 Inactive metformin 500 mg tablet RxNorm: 789751 1 Tablet(s) PO UD 1.5 in morning, noon and 1 at bedtime 08/14/2015 08/07/2016 Inactive gabapentin 600 mg tablet RxNorm: 525948 1 Capsule(s) PO TID SHE IS ONLY TAKING 1 QD 08/14/2015 03/18/2016 Inactive fluticasone 50 mcg/actuation nasal spray,suspension RxNorm: 258794 [place] NASAL ONE SPRAY IN EACH NOSTRIL TWICE DAILY 07/26/2015 07/25/2015 Inactive fluticasone 50 mcg/actuation nasal spray,suspension RxNorm: 1764652 [place] NASAL ONE SPRAY IN EACH NOSTRIL TWICE DAILY 07/26/2015 02/20/2016 Inactive bisoprolol 5 mg-hydrochlorothiazide 6.25 mg tablet RxNorm: 851588 1 Tablet(s) PO daily 1 Tablet(s) PO BID 07/17/20152015 Inactive metformin 500 mg tablet RxNorm: 730904 1 Tablet(s) PO TID 1 Tablet(s) PO TID 07/17/2015 08/13/2015 Inactive Diflucan 100 mg tablet RxNorm: 740857 1 Tablet(s) PO daily 06/201507/21/2015 Inactive Zetia 10 mg tablet RxNorm: 265549 1 Tablet(s) PO daily 201506/03/2016 Inactive bisoprolol 5 mg-hydrochlorothiazide 6.25 mg tablet RxNorm: 496566 1 Tablet(s) PO BID 04/18/2015 07/16/2015 Inactive metformin 500 mg tablet RxNorm: 985502 1 Tablet(s) PO TID 03/0106/28/2015 Inactive glimepiride 4 mg tablet RxNorm: 728599 1 Tablet(s) PO daily 01/30/2015 Inactive levothyroxine 50 mcg tablet RxNorm: 518332 TAKE 1 TABLET BY MOUTH ONCE DAILY 01/31/2015 09/27/2015 Inactive Generic For:SYNTHROID 50MCG TAB N O T I C E PRESCRIPTION PREVIOUSLY AUTHORIZED BY DOCTOR:HENRY BAIG glimepiride 4 mg tablet RxNorm: 793355 1 Tablet(s) PO daily 07/29/2015 Inactive Invokana 100 mg tablet RxNorm: 4132512 1 Tablet(s) PO daily 07/16/2015 Inactive bisoprolol 5 mg-hydrochlorothiazide 6.25 mg tablet RxNorm: 438272 1 Tablet(s) PO BID 08/27/2014 02/22/2015 Inactive metformin 500 mg tablet RxNorm: 819202 1 Tablet(s) PO TID 08/1012/07/2014 Inactive metformin 500 mg tablet RxNorm: 450142 1 Tablet(s) PO TID 08/1008/09/2014 Inactive Eliquis 5 mg tablet RxNorm: 7627637 1 Tablet(s) PO BID No Start Date Active Fish Oil 1,000 mg capsule RxNorm: 1 Capsule(s) PO daily No Start Date Active Protonix 40 mg tablet,delayed release RxNorm: 843939 1 Tablet(s) PO QAM No Start Date Active furosemide 40 mg tablet RxNorm: 548389 1 Tablet(s) PO daily No Start Date Active digoxin 250 mcg tablet RxNorm: 167625 1 Tablet(s) PO daily No Start Date Active pen needle, diabetic 31 gauge x 1/6" RxNorm: Miscellaneous No Start Date Active Effient 10 mg tablet RxNorm: 339490 1 Tablet(s) PO QAM No Start Date Active metoprolol succinate ER 100 mg tablet,extended release 24 hr RxNorm: 040711 1 Tablet(s) PO daily No Start Date Active nitroglycerin 0.4 mg sublingual tablet RxNorm: 087898 1 Tablet(s) SL as needed chest pain No Start Date Active Entresto 24 mg-26 mg tablet RxNorm: 3697423 1 Tablet(s) PO BID No Start Date Active aspirin 81 mg chewable tablet RxNorm: 443441 1 Tablet(s) PO daily No Start Date 06/02/2017 Inactive bisoprolol-hydrochlorothiazide oral RxNorm: 93120 oral No Start Date 08/26/2014 Inactive levothyroxine 50 mcg tablet RxNorm: 549974 1 Tablet(s) PO daily No Start Date 01/30/2015 Inactive potassium chloride ER 20 mEq tablet,extended release RxNorm: 982974 1 Tablet(s) PO daily No Start Date 06/21/2017 Inactive Invokana 100 mg tablet RxNorm: 8445445 1 Tablet(s) PO daily No Start Date 12/11/2014 Inactive Victoza 3-Dariusz 0.6 mg/0.1 mL (18 mg/3 mL) subcutaneous pen injector RxNorm: 986453 0.6 Milligram(s) SQ daily x2 weeks, then 1.2 mg SQ daily No Start Date 12/01/2015 Inactive Zetia 10 mg tablet RxNorm: 433608 1 Tablet(s) PO BID No Start Date 03/18/2016 Inactive gabapentin 300 mg capsule RxNorm: 528393 1 Capsule(s) PO BID No Start Date 08/13/2015 Inactive Lasix 40 mg tablet RxNorm: 811575 1 Tablet(s) PO BID No Start Date 04/14/2017 Inactive Coreg 3.125 mg tablet RxNorm: 142417 1 Tablet(s) PO BID with meals No [...] 04/15/2017 stress test and then shipped to [facility] Follow Up 03/19/2017 stress test and then shipped to [place] diabetes mellitus 02/03/2017 headache 01/07/2017 diabetes mellitus 12/17/2016 diabetes mellitus 09/14/2016 diabetes mellitus 06/18/2016 medication follow up 04/16/2016 back pain 03/19/2016 back pain 11/14/2015 back pain 08/14/2015 diabetes mellitus 07/17/2015 Hospital Follow Up 03/25/2015 diabetes mellitus 12/04/2014 diabetes mellitus 08/14/2014 Results Observation Observation Code Item Item Code Result Date Cbc With Differential Ord2 WBC 5.37 K/ul [...] 28.6 pg 01/11/2018 Cbc With Differential Ord2 [place]% 7.8 % 01/11/2018 Cbc With Differential Ord2 [...] 1.70 K/ul 01/11/2018 Cbc With Differential Ord2 [place] ABS# 0.4 K/ul 01/11/2018 Cbc With Differential Ord2 Eos ABS# 0.1 K/ul 01/11/2018 Cbc With Differential Ord2 Baso ABS# 0.0 K/ul 01/11/2018 Test(s) Not Perfromed [id number] Test(s) Not Performed Test(s) Not Performed. 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 Miguel Mclaughlin 2017 B Type Natriuretic Peptide Sxz2324 [employer] 889.00 pg/ml 2017 Cbc With Differential Ord2 [...] 28.9 pg 09/20/2017 Cbc With Differential Ord2 [place]% 5.6 % 09/20/2017 Cbc With Differential Ord2 [...] 1.68 K/ul 09/20/2017 Cbc With Differential Ord2 [place] ABS# 0.3 K/ul 09/20/2017 Cbc With Differential Ord2 Eos ABS# 0.1 K/ul 09/20/2017 Cbc With Differential Ord2 Baso ABS# 0.0 K/ul 09/20/2017 %Hba1C Pwk850 % HbA1c 85463-5 7.9 % 09/20/2017 %Hba1C Utz514 Gluc Ave 180 mg/dL 09/20/2017 Magnesium Ord90 [...] 88.5 fl 07/07/2017 Cbc With Differential Ord2 [place]% 7.9 % 07/07/2017 Cbc With Differential Ord2 [...] 1.34 K/ul 07/07/2017 Cbc With Differential Ord2 [place] ABS# 0.4 K/ul 07/07/2017 Cbc With Differential Ord2 Eos ABS# 0.1 K/ul 07/07/2017 Cbc With Differential Ord2 Baso ABS# 0.0 K/ul 07/07/2017 Comp Metabolic Kpv482 NA 142 mEq/L 07/07/2017 Comp Metabolic Pxq319 K 4.3 mEq/L 07/07/2017 Comp Metabolic Lfz933 CL 105 mEq/L 07/07/2017 Comp Metabolic Ohd611 CO2 28.0 mEq/L 07/07/2017 Comp Metabolic Dob077 ANION GAP 13 07/07/2017 Comp Metabolic Sxb518 GLUCOSE 197 mg/dL 07/07/2017 Comp Metabolic Bvs682 Creat 1.1 mg/dL 07/07/2017 Comp Metabolic Luq441 eGFR 51 ml/min/1.73m2 07/07/2017 Comp Metabolic Kzp492 BUN 21 mg/dL 07/07/2017 Comp Metabolic Uwc752 B/C Ratio 18.9 Ratio 07/07/2017 Comp Metabolic Khk711 CALCIUM 8.9 mg/dL 07/07/2017 Comp Metabolic Eem858 ALK PHOS 51 U/L 07/07/2017 Comp Metabolic Mgk200 AST(SGOT) 11 U/L 07/07/2017 Comp Metabolic Qud450 ALT(SGPT) 11 U/L 07/07/2017 Comp Metabolic Tdn887 BILI T 0.3 mg/dL 07/07/2017 Comp Metabolic Duk651 ALBUMIN 4.2 g/dL 07/07/2017 Comp Metabolic Cvm890 TPRO 6.0 g/dL 07/07/2017 Comp Metabolic Tko869 GLOB 1.8 g/dL 07/07/2017 Comp Metabolic Uzy517 A/G Ratio 2.3 Ratio 07/07/2017 Comp Metabolic Wbh086 Osmo 292 mOsmo 07/07/2017 Digoxin Ord9 DIGOXIN 1.3 NG/ML 07/07/2017 Tsh Ord6 TSH (3rd IS) 2.19 uIU/mL 07/07/2017 B Type Natriuretic Peptide Grp3207 [employer] 801.00 pg/ml 2017 Culture Urine [id number] URINE CULTURE SEE NOTES 04/19/2017 Culture Urine [id number] Continued Results 04/19/2017 Urine Culture Ucult Complete >100,000 col/ml aerobic growth sent to ref lab 04/16/2017 Comp Metabolic Zbi397 NA 140 mEq/L 01/26/2017 Comp Metabolic Bzo370 K 4.6 mEq/L 01/26/2017 Comp Metabolic Mqg889 CL 102 mEq/L 01/26/2017 Comp Metabolic Syx964 CO2 28.0 mEq/L 01/26/2017 Comp Metabolic Cdp741 ANION GAP 15 01/26/2017 Comp Metabolic Mah669 GLUCOSE 173 mg/dL 01/26/2017 Comp Metabolic Frq712 Creat 1.0 mg/dL 01/26/2017 Comp Metabolic Wir619 eGFR 56 ml/min/1.73m2 01/26/2017 Comp Metabolic Bzs327 BUN 23 mg/dL 01/26/2017 Comp Metabolic Gfg556 B/C Ratio 22.5 Ratio 01/26/2017 Comp Metabolic Cjx993 CALCIUM 9.4 mg/dL 01/26/2017 Comp Metabolic Fdc472 ALK PHOS 52 U/L 01/26/2017 Comp Metabolic Lej609 AST(SGOT) 12 U/L 01/26/2017 Comp Metabolic Rxg418 ALT(SGPT) 12 U/L 01/26/2017 Comp Metabolic Ntr309 BILI T 0.5 mg/dL 01/26/2017 Comp Metabolic Luy261 ALBUMIN 4.4 g/dL 01/26/2017 Comp Metabolic Grk804 TPRO 6.5 g/dL 01/26/2017 Comp Metabolic Dyb878 GLOB 2.1 g/dL 01/26/2017 Comp Metabolic Pby273 A/G Ratio 2.1 Ratio 01/26/2017 Comp Metabolic Wow415 Osmo 287 mOsmo 01/26/2017 Cbc With Differential [...] 29.2 pg 01/26/2017 Cbc With Differential Ord2 [place]% 4.9 % 01/26/2017 Cbc With Differential Ord2 [...] 1.75 K/ul 01/26/2017 Cbc With Differential Ord2 [place] ABS# 0.4 K/ul 01/26/2017 Cbc With Differential Ord2 Eos ABS# 0.1 K/ul 01/26/2017 Cbc With Differential Ord2 Baso ABS# 0.0 K/ul 01/26/2017 %Hba1C Zns620 % HbA1c 75934-7 7.8 % 01/26/2017 %Hba1C Tmr779 Gluc Ave 177 mg/dL 01/26/2017 Lipid Ord30 CHOL 239 mg/dL 01/26/2017 Lipid Ord30 HDL 40.0 mg/dl 01/26/2017 Lipid Ord30 TRIG 325 mg/dL 01/26/2017 Lipid Ord30 LDL 134 mg/dL 01/26/2017 Lipid Ord30 C/HDL 6.0 Ratio 01/26/2017 Free T4 Iog589 FREE T4 0.95 ng/dL 01/26/2017 Tsh Ord6 [...] Metabolic Ord15 CALCIUM 9.0 mg/dL 09/08/2016 %Hba1C Wel898 % HbA1c 73399-9 7.5 % 09/08/2016 %Hba1C Yly016 Gluc Ave 169 mg/dL 09/08/2016 Tsh Ord6 hTSH II 2.64 uIU/mL 03/13/2016 %Hba1C Qmv482 % HbA1c 14701-3 8.2 % 03/13/2016 %Hba1C Jxr941 Gluc Ave 189 mg/dL 03/13/2016 Lipid Ord30 CHOL 233 mg/dL 03/13/2016 Lipid Ord30 HDL 46.0 mg/dl 03/13/2016 Lipid Ord30 TRIG 276 mg/dL 03/13/2016 Lipid Ord30 LDL 132 mg/dL 03/13/2016 Lipid Ord30 C/HDL 5.1 Ratio 03/13/2016 Free T4 Wcd802 FREE T4 0.94 ng/dL 03/13/2016 Cbc With [...] 30.3 pg 03/13/2016 Cbc With Differential Ord2 [place]% 6.1 % 03/13/2016 Cbc With Differential Ord2 [...] 1.63 K/ul 03/13/2016 Cbc With Differential Ord2 [place] ABS# 0.3 K/ul 03/13/2016 Cbc With Differential Ord2 Eos ABS# 0.1 K/ul 03/13/2016 Cbc With Differential Ord2 Baso ABS# 0.0 K/ul 03/13/2016 Comp Metabolic Ybc218 NA 139 mEq/L 03/13/2016 Comp Metabolic Jfs066 K 4.3 mEq/L 03/13/2016 Comp Metabolic Wwi456 CL 103 mEq/L 03/13/2016 Comp Metabolic Okm488 CO2 28.0 mEq/L 03/13/2016 Comp Metabolic Esg505 ANION GAP 12 03/13/2016 Comp Metabolic Ybj962 GLUCOSE 200 mg/dL 03/13/2016 Comp Metabolic Ipy485 Creat 0.9 mg/dL 03/13/2016 Comp Metabolic Iyt498 eGFR 69 ml/min/1.73m2 03/13/2016 Comp Metabolic Szc316 BUN 19 mg/dL 03/13/2016 Comp Metabolic Bbu301 B/C Ratio 22.4 Ratio 03/13/2016 Comp Metabolic Kxp223 CALCIUM 9.0 mg/dL 03/13/2016 Comp Metabolic Mmw162 ALK PHOS 57 U/L 03/13/2016 Comp Metabolic Nnl361 AST(SGOT) 13 U/L 03/13/2016 Comp Metabolic Ktl656 ALT(SGPT) 16 U/L 03/13/2016 Comp Metabolic Bbi356 BILI T 0.4 mg/dL 03/13/2016 Comp Metabolic Mtl246 ALBUMIN 4.2 g/dL 03/13/2016 Comp Metabolic Xkc704 TPRO 6.3 g/dL 03/13/2016 Comp Metabolic Syn702 GLOB 2.1 g/dL 03/13/2016 Comp Metabolic Rmf443 A/G Ratio 2.0 Ratio 03/13/2016 Comp Metabolic Qwx428 Osmo 285 mOsmo 03/13/2016 %Hba1C Ekz896 % HbA1c 13532-2 8.3 % 11/14/2015 %Hba1C Hwi032 Gluc Ave 192 mg/dL 11/14/2015 Lipid Ord30 CHOL 210 mg/dL 07/19/2015 Lipid Ord30 HDL 43.0 mg/dl 07/19/2015 Lipid Ord30 TRIG 311 mg/dL 07/19/2015 Lipid Ord30 LDL 105 mg/dL 07/19/2015 Lipid Ord30 C/HDL 4.9 Ratio 07/19/2015 %Hba1C Mql056 % HbA1c 87953-4 7.6 % 07/19/2015 %Hba1C Nka373 Gluc Ave 171 mg/dL 07/19/2015 Cbc With [...] 28.8 pg 07/19/2015 Cbc With Differential Ord2 [place]% 6.1 % 07/19/2015 Cbc With Differential Ord2 [...] 1.63 K/ul 07/19/2015 Cbc With Differential Ord2 [place] ABS# 0.3 K/ul 07/19/2015 Cbc With Differential Ord2 Eos ABS# 0.1 K/ul 07/19/2015 Cbc With Differential Ord2 Baso ABS# 0.0 K/ul 07/19/2015 Cbc With Differential Ord2 New Analyzer Notice Please note new ref ranges starting 03-27-2015 due to implemntation of new five part differential hematolgy analyzer. 07/19/2015 Comp Metabolic Wak592 NA 138 mEq/L 07/19/2015 Comp Metabolic Ctu038 K 4.3 mEq/L 07/19/2015 Comp Metabolic Hud140 CL 100 mEq/L 07/19/2015 Comp Metabolic Xcl360 CO2 33.0 mEq/L 07/19/2015 Comp Metabolic Ltd703 ANION GAP 9 07/19/2015 Comp Metabolic Ocj798 GLUCOSE 149 mg/dL 07/19/2015 Comp Metabolic Uxo152 Creat 0.9 mg/dL 07/19/2015 Comp Metabolic Osm422 eGFR 62 ml/min/1.73m2 07/19/2015 Comp Metabolic Qjy728 BUN 19 mg/dL 07/19/2015 Comp Metabolic Iyt901 B/C Ratio 20.2 Ratio 07/19/2015 Comp Metabolic Kfw412 CALCIUM 9.5 mg/dL 07/19/2015 Comp Metabolic Qsr597 ALK PHOS 52 U/L 07/19/2015 Comp Metabolic Rbr429 AST(SGOT) 15 U/L 07/19/2015 Comp Metabolic Jqo896 ALT(SGPT) 14 U/L 07/19/2015 Comp Metabolic Wdd620 BILI T 0.5 mg/dL 07/19/2015 Comp Metabolic Gnh220 ALBUMIN 4.4 g/dL 07/19/2015 Comp Metabolic Uis828 TPRO 6.4 g/dL 07/19/2015 Comp Metabolic Ndm530 GLOB 2.0 g/dL 07/19/2015 Comp Metabolic Nct519 A/G Ratio 2.2 Ratio 07/19/2015 Comp Metabolic Ytr901 Osmo 281 mOsmo 07/19/2015 Free T4 Dut926 FREE T4 0.92 ng/dL 07/19/2015 Tsh Ord6 hTSH II 1.95 uIU/mL 07/19/2015 Microalbumin Ata844 MicroAlb 0.4 mg/dL 07/19/2015 Comp Metabolic Tsn476 NA 137 mEq/L 12/04/2014 Comp Metabolic Ukd470 K 4.0 mEq/L 12/04/2014 Comp Metabolic Gwj507 CL 100 mEq/L 12/04/2014 Comp Metabolic Fvr277 CO2 29.0 mEq/L 12/04/2014 Comp Metabolic Fir637 ANION GAP 12 12/04/2014 Comp Metabolic Emu720 GLUCOSE 171 mg/dL 12/04/2014 Comp Metabolic Gmi357 Creat 1.0 mg/dL 12/04/2014 Comp Metabolic Sxf354 eGFR 60 ml/min/1.73m2 12/04/2014 Comp Metabolic Juk019 BUN 25 mg/dL 12/04/2014 Comp Metabolic Ysm031 B/C Ratio 25.8 Ratio 12/04/2014 Comp Metabolic Sqk655 CALCIUM 9.4 mg/dL 12/04/2014 Comp Metabolic Wmb945 ALK PHOS 60 U/L 12/04/2014 Comp Metabolic Yhc026 AST(SGOT) 13 U/L 12/04/2014 Comp Metabolic Bgc168 ALT(SGPT) 17 U/L 12/04/2014 Comp Metabolic Nqi543 BILI T 0.4 mg/dL 12/04/2014 Comp Metabolic Hei184 ALBUMIN 4.4 g/dL 12/04/2014 Comp Metabolic Asw540 TPRO 6.9 g/dL 12/04/2014 Comp Metabolic Ipa467 GLOB 2.5 g/dL 12/04/2014 Comp Metabolic Gpy845 A/G Ratio 1.8 Ratio 12/04/2014 Comp Metabolic Heo416 Osmo 282 mOsmo 12/04/2014 Tsh Ord6 hTSH II 1.78 uIU/mL 12/04/2014 %Hba1C Xyo262 % HbA1c 66949-8 8.3 % 12/04/2014 %Hba1C Qok507 Gluc Ave 192 mg/dL 12/04/2014 Free T4 Osx573 FREE T4 0.85 ng/dL 12/04/2014 Lipid Ord30 [...] bilaterally 06/03/2017 None Full Exam - General 1995 Respiratory respiratory effort/rhythm Overall: no retractions 06/03/2017 [...] benign 06/03/2017 None Full Exam - General 1995 Lymphatic neck nodes Overall: posterior cervical chain [...] lips 04/15/2017 None Full Exam - General 1995 [...] benign 04/16/2016 None Full Exam - General 1995 Ears/Nose/Throat oral cavity/pharynx/larynx Overall: no masses 04/16/2016 [...] clear 12/04/2014 None Full Exam - General 1995 Ears/Nose/Throat [...] sounds 12/04/2014 None Full Exam - General 1995 Lymphatic [...] NO PRSV 4 ANABELLE 3 YRS+ CPT-4: 73821 11/25/2017 GLUC MONITOR CONT PHYS I&R CPT-4: 87356 10/26/2017 GLUCOSE MONITORING CONT CPT-4: 00796 10/11/2017 URINALYSIS NONAUTO W/O SCOPE CPT-4: 49222 04/15/2017 FLU VAC NO PRSV 4 ANABELLE 3 YRS+ CPT-4: 08988 12/17/2016 ADMIN INFLUENZA VIRUS VAC CPT-4: G0008 12/17/2016 FLU VACC PRSV FREE INC ANTIG Formatting Model/CDA Sections, Assigned to/Nery Daniels CPT-4: 36734Ysizemz 11/14/2015 ADMIN INFLUENZA VIRUS VAC CPT-4: G0008 11/14/2015 ADMIN INFLUENZA VIRUS VAC Formatting Model/CDA Sections, Assigned to/Nery Daniels CPT-4: [id number] 12/04/2014 FLU VACC 4 ANABELLE 3 YRS PLUS IM SNOMED CT: [id number] CPT-4: 82720 12/04/2014 Vital Signs Date Vital 11/25/2017 Blood Pressure 1: 148/72 Code : 8480-6 BMI: 30.9 Code : 93716-5 Heart Rate 1 : 62 bpm Height: 5' SpO2: 98% Weight: 158 lbs 10/26/2017 Blood Pressure 1: 156/74 Code : 8480-6 BMI: 31.2 Code : 50856-6 Heart Rate 1 : 71 bpm Height: 5' SpO2: 98% Weight: 160 lbs 10/11/2017 Blood Pressure 1: 128/70 Code : 8480-6 BMI: 30.9 Code : 20929-0 Heart Rate 1 : 70 bpm Height: 5' SpO2: 95% Weight: 158 lbs 09/22/2017 Blood Pressure 1: 110/52 Code : 8480-6 BMI: 30.9 Code : 41550-2 Heart Rate 1 : 72 bpm Height: 5' SpO2: 99% Weight: 158 lbs 07/06/2017 Blood Pressure 1: 120/85 Code : 8480-6 BMI: 31.4 Code : 60723-2 Heart Rate 1 : 74 bpm Height: 5' SpO2: 92% Weight: 161 lbs 06/03/2017 Blood Pressure 1: 120/62 Code : 8480-6 BMI: 31.1 Code : 40477-5 Heart Rate 1 : 73 bpm Height: 5' SpO2: 99% Weight: 159 lbs 05/12/2017 Blood Pressure 1: 132/68 Code : 8480-6 BMI: 32.4 Code : 44036-5 Heart Rate 1 : 95 bpm Height: 5' SpO2: 97% Weight: 166 lbs 04/15/2017 Blood Pressure 1: 128/84 Code : 8480-6 BMI: 32.4 Code : 42938-4 Heart Rate 1 : 62 bpm Height: 5' SpO2: 97% Weight: 166 lbs 03/19/2017 Blood Pressure 1: 112/60 Code : 8480-6 BMI: 32.0 Code : 57180-2 Height: 5' Weight: 164 lbs 02/03/2017 Blood Pressure 1: 128/76 Code : 8480-6 BMI: 33.4 Code : 96253-0 Heart Rate 1 : 91 bpm Height: 5' SpO2: 99% Weight: 171 lbs 01/07/2017 Blood Pressure 1: 126/74 Code : 8480-6 BMI: 34.2 Code : 27708-1 Heart Rate 1 : 83 bpm Height: 5' SpO2: 97% Weight: 175 lbs 12/17/2016 Blood Pressure 1: 122/72 Code : 8480-6 BMI: 34.0 Code : 82502-0 Heart Rate 1 : 78 bpm Height: 5' SpO2: 97% Weight: 174 lbs 09/14/2016 Blood Pressure 1: 128/86 Code : 8480-6 BMI: 33.8 Code : 06387-8 Heart Rate 1 : 88 bpm Height: 5' SpO2: 96% Weight: 173 lbs 06/18/2016 Blood Pressure 1: 122/74 Code : 8480-6 BMI: 34.8 Code : 11515-3 Heart Rate 1 : 78 bpm Height: 5' SpO2: 98% Weight: 178 lbs 04/16/2016 Blood Pressure 1: 134/68 Code : 8480-6 BMI: 35.0 Code : 08111-1 Heart Rate 1 : 67 bpm Height: 5' SpO2: 97% Weight: 179 lbs 03/19/2016 Blood Pressure 1: 132/74 Code : 8480-6 BMI: 34.6 Code : 41741-2 Heart Rate 1 : 74 bpm Height: 5' SpO2: 97% Weight: 177 lbs 11/14/2015 Blood Pressure 1: 132/70 Code : 8480-6 BMI: 35.2 Code : 84568-0 Heart Rate 1 : 68 bpm Height: 5' Weight: 180 lbs 08/14/2015 Blood Pressure 1: 122/74 Code : 8480-6 BMI: 33.8 Code : 92279-1 Heart Rate 1 : 73 bpm Height: 5' SpO2: 93% Weight: 173 lbs 07/17/2015 Blood Pressure 1: 138/78 Code : 8480-6 BMI: 34.0 Code : 72482-3 Heart Rate 1 : 85 bpm Height: 5' SpO2: 97% Weight: 174 lbs 03/25/2015 Blood Pressure 1: 130/78 Code : 8480-6 BMI: 33.2 Code : 66399-7 Heart Rate 1 : 77 bpm Height: 5' SpO2: 97% Weight: 170 lbs 12/04/2014 Blood Pressure 1: 120/74 Code : 8480-6 BMI: 35.4 Code : 80942-7 Heart Rate 1 : 67 bpm Height: 5' SpO2: 94% Weight: 181 lbs 5 oz 08/14/2014 Blood Pressure 1: 132/68 Code : 8480-6 BMI: 32.1 Code : 26310-9 Heart Rate 1 : 62 bpm Height: [...] data Encounters Encounter Performer Location Codes Date ([id number]) [id number] EST. PATIENT, LEVEL IV Diagnosis: Type 2 diabetes mellitus with hyperglycemia[ICD10: E11.65] Diagnosis: Essential (primary) hypertension[ICD10: I10] Diagnosis: Encounter for immunization[ICD10: Z23] Diagnosis: Carpal tunnel syndrome, left upper limb[ICD10: G56.02] Claudia Nicole MD, [facility] CPT-4: 85695 11/25/2017 ([id number]) [id number] EST. PATIENT, LEVEL III Diagnosis: Type 2 diabetes mellitus with hyperglycemia[ICD10: E11.65] Claudia Nicole MD, [facility] CPT-4: 99366 10/26/2017 ([id number]) Miscellaneous no charge Diagnosis: Type 2 diabetes mellitus with hyperglycemia[ICD10: E11.65] Claudia Nicole MD, [facility] CPT-4: 66553 10/18/2017 ([id number]) 30748 EST. PATIENT, LEVEL IV Diagnosis: Type 2 diabetes mellitus with diabetic autonomic (poly)neuropathy[ ICD10: E11.43] Diagnosis: Essential (primary) hypertension[ICD10: I10] Mila Nicole MD, [facility] CPT-4: 65583 09/22/2017 ([id number]) 37039 EST. PATIENT, LEVEL IV Diagnosis: Type 2 diabetes mellitus with hyperglycemia[ICD10: E11.65] Diagnosis: Paroxysmal atrial fibrillation[ICD10: I48.0] Diagnosis: Essential (primary) hypertension[ICD10: I10] Mila Nicole MD, [facility] CPT-4: 68722 07/06/2017 ([id number]) 13818 EST. PATIENT, LEVEL IV Diagnosis: Essential (primary) hypertension[ICD10: I10] Diagnosis: Type 2 diabetes mellitus with hyperglycemia[ICD10: E11.65] Diagnosis: Paroxysmal atrial fibrillation[ICD10: I48.0] Claudia Nicole MD, [facility] CPT-4: 59425 06/03/2017 76429 EST. PATIENT, LEVEL III Diagnosis: Generalized anxiety disorder[ICD10: F41.1] Diagnosis: Major depressive disorder, recurrent, moderate[ICD10: F33.1] Diagnosis: Paroxysmal tachycardia, unspecified[ICD10: I47.9] Gardenia Nicole MD, [facility] CPT-4: 06004 05/12/2017 ([id number]) 69953 EST. PATIENT, LEVEL IV Diagnosis: Essential (primary) hypertension[ICD10: I10] Diagnosis: Cough[ICD10: R05] Diagnosis: Dysuria[ICD10: R30.0] Mila Nicole MD, [facility] CPT-4: 93143 04/15/2017 ([id number]) 73363 EST. PATIENT, LEVEL IV Diagnosis: Type 2 diabetes mellitus with hyperglycemia[ICD10: E11.65] Diagnosis: Essential (primary) hypertension[ICD10: I10] Mila Nicole MD, [facility] CPT-4: 24363 03/19/2017 ([id number]) 43912 EST. PATIENT, LEVEL III Diagnosis: Type 2 diabetes mellitus with hyperglycemia[ICD10: E11.65] Mila Nicole MD , [facility] CPT-4: 40564 02/03/2017 29588 EST. PATIENT, LEVEL IV Diagnosis: Generalized anxiety disorder[ICD10: F41.1] Diagnosis: Type 2 diabetes mellitus with hyperglycemia[ICD10: E11.65] Diagnosis: Essential (primary) hypertension[ICD10: I10] Gardenia Nicole MD, [facility] CPT-4: 25826 01/07/2017 ([id number]) 51656 EST. PATIENT, LEVEL III Diagnosis: Type 2 diabetes mellitus with hyperglycemia[ICD10: E11.65] Diagnosis: Encounter for immunization[ICD10: Z23] Mila Nicole MD, [facility] CPT-4: 63145 12/17/2016 ([id number]) 31644 EST. PATIENT, LEVEL IV Diagnosis: Type 2 diabetes mellitus with hyperglycemia[ICD10: E11.65] Diagnosis: Essential (primary) hypertension[ICD10: I10] Diagnosis: Major depressive disorder, recurrent, mild[ICD10: F33.0] Mila Nicole MD, [facility] CPT-4: 01289 09/14/2016 ([id number]) 57410 EST. 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 PATIENT, LEVEL IV Diagnosis: Type 2 diabetes mellitus with hyperglycemia[ICD10: E11.65] Diagnosis: Essential (primary) hypertension[ICD10: I10] Mila Nicole MD [facility] CPT-4: 00442 04/16/2016 ([id number]) 32758 EST. 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 PATIENT, LEVEL IV Diagnosis: Type 2 diabetes mellitus with hyperglycemia[ICD10: E11.65] Diagnosis: Encounter for immunization[ICD10: Z23] Diagnosis: Essential (primary) hypertension[ICD10: I10] Mila Nicole MD [facility] CPT-4: 10778 11/14/2015 ([id number]) 63172 EST. PATIENT, LEVEL IV Diagnosis: Type 2 diabetes mellitus with hyperglycemia[ICD10: E11.65] Diagnosis: Essential (primary) hypertension[ICD10: I10] Diagnosis: Low back pain[ICD10: M54.5] Mila Nicole MD, [facility] CPT- 4: 36790 08/14/2015 ([id number]) 69424 EST. PATIENT, LEVEL IV Diagnosis: Type 2 diabetes mellitus with hyperglycemia[ICD10: E11.65] Diagnosis: Essential (primary) hypertension[ICD10: I10] Diagnosis: Hypothyroidism, unspecified[ICD10: E03.9] Mila Nicole MD, [facility] CPT-4: 79609 07/17/2015 ([id number]) 58560 EST. PATIENT, LEVEL IV Diagnosis: Essential (primary) hypertension[ICD10: I10] Diagnosis: Type 2 diabetes mellitus with hyperglycemia[ICD10: E11.65] Diagnosis: Headache[ICD10: R51] Gardenia Nicole MD, [facility] CPT-4: 31998 03/25/2015 ([id number]) 97576 EST. PATIENT, LEVEL IV Diagnosis: ESSENTIAL HYPERTENSION[ICD9: 401.9] Diagnosis: DIABETES TYPE II[ICD9: 250.00] Diagnosis: Aortic stenosis[ICD9: 424.1] Mila Nicole MD, [facility] CPT- 4: 78850 12/04/2014 ([id number]) OFFICE VISIT, NEW - LEVEL 4 Diagnosis: ESSENTIAL HYPERTENSION[ICD9: 401.9] Diagnosis: Diabetes mellitus out of control[ICD9: 250.02] Mila Nicole MD, [facility] CPT-4: 82193 08/14/2014 Plan of Care Planned Activity Notes Codes Status Date Visit Plan: Diabetes Mellitus - Uncontrolled - [...] worse 11/25/2017 [phone] ([facility] min) Moderate 11/25/2017 Patient Education: Patient Medication Summary Completed 11/25/2017 App[facility]ment: [phone] (15 min) Moderate 10/28/2017 Visit Plan: Diabetes [...] to appt. 10/26/2017 Appointment: Claudia Pruitt WPtel: [phone] [phone] (15 min) Moderate 10/26/2017 Patient Education: Patient [...] plan. 10/11/2017 Appointment: Claudia Pruitt WPtel: [phone] [phone] (30 min) Complex 10/11/2017 Patient Education: Patient [...] Completed 09/22/2017 Appointment: Mila Nicole WPtel: [phone] [facility] (15 min) Moderate 09/13/2017 Appointment: Mila Nicole WPtel: [phone] [facility] (15 min) Moderate 09/07/2017 Visit Plan: [...] becoming uncontrolled. 07/06/2017 Appointment: [phone] (15 min) Moderate 07/06/2017 Patient Education: Patient Medication Summary Completed 07/06/2017 Appointment: Mila Nicole WPtel: [phone] [facility] (15 min) Moderate 06/07/2017 Visit Plan: [...] controlled. 06/03/2017 Appointment: Claudia Pruitt WPtel: [phone] [phone] (30 min) Complex 06/03/2017 Patient Education: Patient [...] plan 05/12/2017 App[facility]ment[phone] ([facility] min) Complex 05/12/2017 Patient Education: Patient [...] Entresto medication. 04/15/2017 Appointment: Mila Nicole WPtel: [phone] [facility] (15 min) Moderate 04/15/2017 Patient Education: [...] units daily. 03/19/2017 Appointment: [phone] [place] (15 min) Moderate 03/19/2017 Patient Education: Patient Medication Summary Completed 03/19/2017 Appointment: [phone] (15 min) Moderate 02/24/2017 Visit Plan: Diabetes [...] [phone] (15 min) Moderate 02/03/2017 Patient Education: Patient [...] concerns. 01/07/2017 App[facility]ment: [phone] (30 min) Complex 01/07/2017 Patient Education: Patient [...] to allow for greater blood glucose control. [id number], 02/2018 junior nordisk 12/17/2016 Appointment: Mila Nicole WPtel: [phone] [facility] [place] (15 min) Moderate 12/17/2016 Patient Education: Patient Medication Summary Completed 12/17/2016 Patient Education: Obesity Completed 12/17/2016 Appointment: Mila Nicole WPtel: [phone] [facility] (15 min) Moderate 12/14/2016 Visit Plan: [...] current medications. 09/14/2016 Appointment: Mila Nicole WPtel: [phone] [facility] [place] (15 min) Moderate 09/14/2016 Patient [...] at home. 06/18/2016 Appointment: [phone] (15 min) Moderate 06/18/2016 Patient Education: Patient [...] at home. 04/16/2016 Appointment: [phone] [facility] [place] (15 min) Moderate 04/16/2016 Patient Education: [...] - continue with gabapentin 03/19/2016 Appointment: Mila iNcole WPtel: [phone] [facility] (15 min) Moderate 03/19/2016 Patient Education: Patient [...] home. 11/14/2015 Appointment: Mila Nicole WPtel: [phone] [facility] (15 min) Moderate 11/14/2015 Patient Education: Patient [...] check Hgba1c 07/17/2015 Appointment: Mila Nicole WPtel: [facility] (15 min) Moderate 07/17/2015 Patient Education: Patient [...] Hypertension Completed 03/25/2015 Appointment: [facility]: [phone] [facility] (15 min) Moderate 01/14/2015 Visit Plan: Diabetes [...] control. 12/04/2014 Appointment: [phone] (15 min) Moderate 12/04/2014 Patient Education: Patient [...] [phone] [facility] [place] (S) New Patient 08/14/2014 Patient Education: [...] continue with insulin at 10 units daily. Decrease victoza back to your previous dose [...] change in blood pressure readings at home. cut back on carbohydrates in food - [...] to allow for greater blood glucose control. [id number], 02/2018 junior nordisk . Diabetes Mellitus - [...] worse INCREASE BASAGLAR TO 18 UNITS DAILY increase [...] start on diflucan treatment - check Hgba1c I think the entresto is causing you [...] if their heart rate is becoming uncontrolled. INCREASE BASAGLAR TO 18 UNITS DAILY . [...]
[2018-03-30] MEDS ORDERED: GLYCOPYRROLATE 0.2 MG/ML (ROBINUL) 2 ML VIAL ONE (11:37)
[2018-03-30] MEDS ORDERED: NEOSTIGMINE 1 MG/ML 5 ML SYRINGE ONE (11:37)
[2018-03-30] MEDS ORDERED: PROMETHAZINE INJ 25 MG/ML (PHENERGAN) AMP IVP ONE (12:15)
[2018-03-30] MEDS ORDERED: MEPERIDINE (DEMEROL) INJ 50 MG/ML IVP ONE (12:15)
[2018-03-30] MEDS ORDERED: ONDANSETRON 4 MG/2 ML (SDV) Z0FRAN IVP PRN (12:15)
[2018-03-30] MEDS ORDERED: fentaNYL INJECTION 100 MCG/2 ML AMP IVP ONE (12:15)
--- NOTE | 2018-03-30 12:29 | Operative Report ---
Operative Report Date of Procedure/Surgery Mar 30, 2018 Surgeon (s) RAJEEV CAMILO MD Massotherapist (s): N/A Post-Operative Diagnosis same Procedure Performed robotic-assisted cholecystectomy Description of Procedure Anesthesia Type: General Estimated blood loss (mL): minimal Specimen(s) collected/removed gallbladder Description of the Procedure Indication for the procedure: This lady presented with symptomatic sludge and stones within her gallbladder. She was offered a cholecystectomy using minimally invasive technique using robotic assistance. Informed consent was obtained after reviewing the operative details and complications of wound infection, bile leak from and the potential for postoperative ERCP, should common duct stones be discovered. Description of procedure: She was placed supine on the operative table and general anesthesia induced. A gram of Ancef and 500 mg of Flagyl were administered intravenously as prophylaxis against wound infection. Sequential compression devices were placed around her legs, to minimize the risk of venous thrombosis. Abdomen was prepared and draped in the usual sterile manner. A supraumbilical incision was made and pneumoperitoneum established using a Veress needle. Intra -abdominal pressure was maintained at 15 mmHg, using carbon dioxide insufflation. A 12 mm trocar was placed and anatomy visualized using the high definition, 3-dimensional laparoscope associated with da Vinod system. Under direct view, I placed an 8 mm trocar over each side of the abdomen, followed by a 5 mm trocar over the left upper quadrant. The patient was then turned into reverse Trendelenburg position, with the right side tilted up and the robotic system docked. The fundus of the gallbladder was retracted cephalad and the infundibulum grasped with Cadiere forceps. Peritoneum overlying Calot's triangle was incised using the hook cautery, delineating the cystic duct and artery. Both were divided between locking clips. Cholecystectomy was then completed using the hook cautery. The gallbladder was then placed in an Endo Catch bag and removed via the supraumbilical trocar site. The fascia over this incision had to be extended cephalad, to allow removal of the large gallbladder. It was then closed using #1 Vicryl, in a continuous fashion. Skin incisions were closed using 4-0 Vicryl, in a subcuticular fashion. 0.5 percent Marcaine with epinephrine was infiltrated along the incisions, both preemptively and at the conclusion of the operation. Back she tolerated the procedure well, was extubated in the operating room and taken to the recovery room in a stable condition Findings of the Procedure See op report Allergies and Home Medications Allergies Coded Allergies: canagliflozin (Verified Allergy, Severe, LIGHT HEADED/HEADACHES/UTI/FELT LIKE SHE WOULD PASS OUT, 02/18/17) liraglutide (Verified Allergy, Severe, RAPID HEART RATE/HEADACHE/DIZZINESS , 02/18/17) Knyykep-Tuz-Juj Reductase Inhibitor (Verified Adverse Reaction, Severe, MUSCLE PAIN, 02/18/17) Home Medications Acetaminophen 500 Mg Tablet, 500-1,000 MG PO Q4H PRN for PAIN-MILD, (Reported) Acetaminophen/Diphenhydramine 1 Each Tablet, 1 TAB PO HS, (Reported) Apixaban 2.5 Mg Tablet, 2.5 MG PO BID, (Reported) Aspirin 81 Mg Tablet.dr, 81 MG PO DAILY, (Reported) Diclofenac Sodium 100 Gm Gel..gram., TP BID PRN for JOINT PAIN, (Reported) Digoxin 250 Mcg Tablet, 125 MCG PO DAILY, (Reported) TAKES 1/2 (250 MCG) TABLET Escitalopram Oxalate 10 Mg Tablet, 10 MG PO DAILY PRN for DEPRESSION, (Reported) Ezetimibe 10 Mg Tablet, 10 MG PO HS, (Reported) Fluticasone Propionate 16 Gm Glady.susp, 1 SPRAY NS BID PRN for ALLERGIES, ( Reported) Furosemide 40 Mg Tablet, 40 MG PO DAILY, (Reported) Gabapentin 600 Mg Tablet, 600 MG PO TID PRN for nerve pain, (Reported) Hydrocodone Bit/Acetaminophen 1 Tab Tab, 1-2 TAB PO Q6H PRN for PAIN-MODERATE Prescribed by: RAJEEV CAMILO on 03/30/18 1056 Insulin Glargine,Hum.rec.anlog 100 Unit/1 Ml Insuln.pen, 20 UNITS SC DAILY, ( Reported) Levothyroxine Sodium 50 Mcg Tablet, 50 MCG PO DAILY, (Reported) Metformin HCl 500 Mg Tablet, 500 MG PO HS, (Reported) Metformin HCl 500 Mg Tablet, 750 MG PO 0700,1200, (Reported) TAKES 1 & 1/2 (500MG) TABLETS Metoprolol Succinate 100 Mg Tab.er.24h, 200 MG PO DAILY, (Reported) take 2 (100mg) tabs Nitroglycerin 0.4 Mg Tab.subl, 0.4 MG SL UD PRN for CHEST PAIN, (Reported) Brandon 3 Polyunsat Fatty Acids 1,000 Mg Cap, 1,000 MG PO DAILY, (Reported) Pantoprazole Sodium 40 Mg Tablet.dr, 40 MG PO DAILY, (Reported) Potassium Chloride 20 Meq Tablet.er, 20 MEQ PO DAILY, (Reported) Sacubitril/Valsartan 1 Each Tablet, 1 TAB PO BID, (Reported) Patient Home Medication List Home Medication List Reviewed: Yes RAJEEV CAMILO MD Mar 30, 2018 12:29
[2018-03-30 13:10] VITALS: BP 118/78
[2018-03-30] MEDS ORDERED: HYDROcodone/APAP 5 MG/325 MG (LORTAB) TAB ONE (13:14)
--- NOTE | 2018-03-30 13:14 | NUR ---
LORTAB 5/325 MG 1 PO GIVEN FOR PAIN THAT THE PATIENT RATES AN 8-9. 1359: LORTAB 5/325 MG 1 REPEATED FOR CONTINUED PAIN THAT THE PATIENT RATES AN 8.
[2018-03-30] MEDS: HYDROcodone/APAP 5 MG/325 MG (LORTAB) TAB PO PRN ×2 (13:15→13:59)
[2018-03-30 13:40] VITALS: BP 137/64
[2018-03-30 14:10] VITALS: BP 130/60
--- NOTE | 2018-03-30 14:24 | Anesthesia-General Post-Op ---
General Patient Condition Mental Status/LOC: Same as Preop Cardiovascular: Satisfactory Nausea/Vomiting: Absent Respiratory: Satisfactory Pain: Controlled Complications: Absent Post Op Complications Complications None Follow Up Care/Instructions Patient Instructions None needed. Anesthesia/Patient Condition Patient Condition Patient is doing well, no complaints, stable vital signs, no apparent adverse anesthesia problems. MARIE APARICIO DO Mar 30, 2018 14:24
[2018-03-30 15:15] VITALS: BP 130/60
== END 2018-03-30 15:38 | disposition home or self-care (01) ==
LOC: SDC 08:47
PROVIDERS: ATTEND Surgery
DX: K80.10 Calculus of gallbladder with chronic cholecystitis without obstruction (principal); I25.10 Atherosclerotic heart disease of native coronary artery without angina pectoris; I65.29 Occlusion and stenosis of unspecified carotid artery; E78.00 Pure hypercholesterolemia, unspecified; I10 Essential (primary) hypertension; E11.51 Type 2 diabetes mellitus with diabetic peripheral angiopathy without gangrene; F32.9 Major depressive disorder, single episode, unspecified; F41.9 Anxiety disorder, unspecified; G47.33 Obstructive sleep apnea (adult) (pediatric); M06.9 Rheumatoid arthritis, unspecified; K21.9 Gastro-esophageal reflux disease without esophagitis; K44.9 Diaphragmatic hernia without obstruction or gangrene; Z95.5 Presence of coronary angioplasty implant and graft; Z79.84 Long term (current) use of oral hypoglycemic drugs; Z79.82 Long term (current) use of aspirin; Z79.899 Other long term (current) drug therapy; Z96.653 Presence of artificial knee joint, bilateral
CPT/HCPCS: 36415; 80053; 82962; 85025; 87081; 88304

== ENCOUNTER → 2018-04-13 | Outpatient (CLI) | payer MEDICARE ==
[~2018-04-13] MED LIST changes: +ACHD5005 PO; -AMLO5TAB7 PO; +AMLO5TAB9 PO; -GABA600T2 PO; +GBPN600T PO
[2018-04-13 12:35] LABS: BASOPHILS % (AUTO) 0 % (0-10); EOSINOPHILS % (AUTO) 1 % (0-10); HEMATOCRIT 33 % (35-52); HEMOGLOBIN 10.9 G/DL (11.5-16.0); LYMPHOCYTES # (AUTO) 1.6 X 10^3 (1.0-4.0); LYMPHOCYTES % (AUTO) 25 % (12-44); MEAN CORPUSCULAR HEMOGLOBIN 29 PG (25-34); MEAN CORPUSCULAR HGB CONC 33 G/DL (32-36); MEAN CORPUSCULAR VOLUME 88 FL (80-99); MEAN PLATELET VOLUME 9.5 FL (7.4-10.4); MONOCYTES # (AUTO) 0.3 X 10^3 (0.0-1.0); MONOCYTES % (AUTO) 4 % (0-12); NEUTROPHILS # (AUTO) 4.5 X 10^3 (1.8-7.8); NEUTROPHILS % (AUTO) 70 % (42-75); PLATELET COUNT 431 10^3/uL (130-400); RED CELL DISTRIBUTION WIDTH 13.4 % (10.0-14.5); WHITE BLOOD COUNT 6.4 10^3/uL (4.3-11.0)
[2018-04-13 12:51] LABS: ALBUMIN 4.2 GM/DL (3.2-4.5); BILIRUBIN,DIRECT 0.1 MG/DL (0.0-0.3); BILIRUBIN,INDIRECT 0.1 MG/DL; BILIRUBIN,TOTAL 0.2 MG/DL (0.1-1.0); TOTAL PROTEIN 6.8 GM/DL (6.4-8.2)
[2018-04-15 10:10] LABS: AMYLASE 34 U/L (25-125); LIPASE 15 U/L (8-78)
== END ==
LOC: LAB 12:21
PROVIDERS: ATTEND Surgery
DX: R10.11 Right upper quadrant pain (principal); R11.0 Nausea; Z98.890 Other specified postprocedural states
CPT/HCPCS: 36415; 80076; 85025

== ENCOUNTER → 2018-05-03 | Outpatient (CLI) | payer MEDICARE ==
[~2018-05-03] MED LIST changes: -ACDPT PO; -ACET-2267 PO; -ACET-2469 PO; -ACHD5005 PO; -ALPR0.254 PO; -AMLO5TAB9 PO; -APIX2.5T PO; -APIX5TAB PO; -ASPI-586 PO; -ASPI-999 PO; -BISO1TAB3 PO; -BISO1TAB6 PO; -CANA100T PO; +CATHETER FLUSH 10 ML SYR IV PRN; -CEFU250T PO; -CHOL2000 PO; -CHOL20003 PO; -DICL100G18 TP; -DIGO250T PO; -DIGO250T15 PO; -ESCI10TA55 PO; -ESCI5TAB12 PO; -EZET10TA27 PO; -EZET10TA5 PO; -FLUT16SP22 NS; -FURO40TA4 PO; -GABA-488 PO; -GBPN600T PO; -GLIM2TAB PO; -INSU100I10 SQ; -INSU100I34 SC; -INSU100V6 SQ; +IOHEXOL 350 MG/ML 100 ML (OMNIPAQUE 350) VIAL IV ONE; -LEVO50TA6 PO; -METF-397 PO; -METH4TAB PO; -METO-387 PO; -METO-395 PO; -MTF500T PO; -NITR0.4T39 SL; +NS 100 ML (IVPB) BAG IV ONE; -Nitroglycerin SL; -OMEG-12 PO; -OMG1KC PO; -PANT40TA3 PO; -POTA-51 PO; -POTA20TA15 PO; -POTA20TA8 PO; -PRAS10TA10 PO; +RECEIVED CONTRAST (Hold Metformin) IV SCH; -SACU1TAB PO; -TRAM-42 PO
[2018-05-03 11:55] LABS: ALBUMIN 4.3 GM/DL (3.2-4.5); BILIRUBIN,TOTAL 0.5 MG/DL (0.1-1.0); CALCIUM 9.5 MG/DL (8.5-10.1); CREATININE SERUM 1.03 MG/DL (0.60-1.30); POTASSIUM 4.4 MMOL/L (3.6-5.0); TOTAL PROTEIN 6.5 GM/DL (6.4-8.2)
--- NOTE | 2018-05-03 13:23 | Diagnostic Imaging Report ---
PROCEDURE: CT abdomen and pelvis with contrast. TECHNIQUE: Multiple contiguous axial images were obtained through the abdomen and pelvis after administration of intravenous contrast. INDICATION: Abdominal pain radiating to the back for 3 weeks. Patient has acute pancreatitis. COMPARISON: No prior studies are available for comparison. FINDINGS: The lung bases are clear apart from a micronodule in the lateral portion of the right middle lobe measuring 3 mm. This was obscured on prior CT chest by multiple airspace infiltrates. The liver demonstrates generalized low density suggestive of hepatic steatosis. No discrete liver mass is identified apart from an area of hypodensity in the inferior right lobe measuring 2.3 x 1.5 cm. This could conceivably represent a hemangioma. Gallbladder appears to be surgically absent. No biliary duct dilatation is seen. Pancreas appears to be atrophic. In particular the pancreatic head and proximal body are significantly atrophic. No peripancreatic inflammatory change or evidence of pseudocyst formation is identified. The spleen is unremarkable. No adrenal mass is identified. The right kidney is unremarkable. There appears to be some cortical scarring involving the lower pole of the left kidney. The aorta is non-aneurysmal. There appears to be diffuse wall thickening involving the ascending and transverse colon. Descending colon is unremarkable. There is diverticulosis of the sigmoid but no evidence of acute diverticulitis. The bladder is unremarkable. There is a cystic mass in the right adnexa measuring 5.1 cm, perhaps ovarian. There is no free fluid. No definite lymphadenopathy is seen. Bony structures are nonacute. IMPRESSION: 1. Hepatic steatosis. There is a hyperdense lesion in the inferior right lobe of the liver, perhaps hemangioma versus other mass or area of focal sparing. Followup to confirm stability is recommended. 2. Pancreatic atrophy. No peripancreatic inflammation to suggest pancreatitis is seen. No pseudocyst formation is identified. 3. Wall thickening of the ascending and transverse colon consistent with nonspecific colitis. There is also uncomplicated diverticulosis. 4. 5 cm right pelvic cyst, perhaps ovarian. Pelvic ultrasound may be useful for further characterization. Dictated by: Dictated on workstation # [id number]
== END ==
LOC: RAD 11:19
PROVIDERS: ATTEND Nurse Practitioner Family
DX: K76.0 Fatty (change of) liver, not elsewhere classified (principal); N94.89 Other specified conditions associated with female genital organs and menstrual cycle; K63.89 Other specified diseases of intestine; K57.30 Diverticulosis of large intestine without perforation or abscess without bleeding; K85.90 Acute pancreatitis without necrosis or infection, unspecified
CPT/HCPCS: 36415; 74177; 80053

== ENCOUNTER → 2018-06-06 | Outpatient (CLI) | payer MEDICARE ==
[~2018-06-06] MED LIST changes: +ACDPT PO; +ACET-2267 PO; +ACET-2469 PO; +ACHD5005 PO; +ALPR0.254 PO; +AMLO5TAB9 PO; +APIX2.5T PO; +APIX5TAB PO; +ASPI-586 PO; +ASPI-999 PO; +BISO1TAB3 PO; +BISO1TAB6 PO; +CANA100T PO; -CATHETER FLUSH 10 ML SYR IV PRN; +CEFU250T PO; +CHOL2000 PO; +CHOL20003 PO; +DICL100G18 TP; +DIGO250T PO; +DIGO250T15 PO; +ESCI10TA55 PO; +ESCI5TAB12 PO; +EZET10TA27 PO; +EZET10TA5 PO; +FLUT16SP22 NS; +FURO40TA4 PO; +GABA-488 PO; +GBPN600T PO; +GLIM2TAB PO; +INSU100I10 SQ; +INSU100I34 SC; +INSU100V6 SQ; -IOHEXOL 350 MG/ML 100 ML (OMNIPAQUE 350) VIAL IV ONE; +LEVO50TA6 PO; +METF-397 PO; +METH4TAB PO; +METO-387 PO; +METO-395 PO; +MTF500T PO; +NITR0.4T39 SL; -NS 100 ML (IVPB) BAG IV ONE; +Nitroglycerin SL; +OMEG-12 PO; +OMG1KC PO; +PANT40TA3 PO; +POTA-51 PO; +POTA20TA15 PO; +POTA20TA8 PO; +PRAS10TA10 PO; -RECEIVED CONTRAST (Hold Metformin) IV SCH; +SACU1TAB PO; +TRAM-42 PO
--- NOTE | 2018-06-06 18:56 | Diagnostic Imaging Report ---
INDICATION: Routine screening. TECHNIQUE: 2D and 3D bilateral screening mammography was performed with computer-aided detection (CAD) system. FINDINGS: Both breasts are heterogeneously dense, limiting the sensitivity of mammography. No dominant mass or malignant appearing microcalcifications are seen. There are vascular calcifications bilaterally. The axillae are unremarkable. Overall density to the breasts has increased since the prior mammogram from 2013. There is also some questionable minimal skin thickening. This can be seen with congestive heart failure, and clinical correlation is recommended. IMPRESSION: No mammographic features suspicious for malignancy are identified. There may be changes of CHF, described above. Clinical correlation is recommended. ACR BI-RADS Category 1: Negative. Result letter will be mailed to the patient. Note: At least 10% of breast cancer is not imaged by mammography. Dictated by: Dictated on workstation # [id number]
== END ==
LOC: RAD 08:22
PROVIDERS: ATTEND Obstetrics & Gynecology Gynecology
DX: Z12.31 Encounter for screening mammogram for malignant neoplasm of breast (principal); N83.209 Unspecified ovarian cyst, unspecified side
CPT/HCPCS: 77067

== ENCOUNTER → 2018-06-30 | Outpatient (CLI) | payer MEDICARE ==
--- NOTE | 2018-06-30 12:02 | Diagnostic Imaging Report ---
CLINICAL INDICATION: Patient with burning stabbing pain in right mid back that wraps around to front of ribs. Patient had gallbladder removed in March of 2018. EXAM: MRI of the thoracic spine performed without IV contrast. Sequences include sagittal T2, sagittal T1, sagittal T2 fat-sat, and axial T2. COMPARISON: None. FINDINGS: Small bilateral pleural effusions are seen (right side more than the left). Thoracic spine has normal alignment with no acute fracture or dislocation. There is minimal Modic type I degenerative signal changes scattered throughout the thoracic spine anteriorly with associated mildly hypertrophic disc spurs. There is bilateral facet arthropathy involving the thoracic spine. There is chronic Schmorl's nodes seen from the T7 through T11 endplates. The thoracic spinal cord has normal cord caliber with no abnormal signal. There is a small posterior disc extrusion/herniation at the T2-T3 level which causes no significant central canal narrowing. There is a small posterior disc bulge at the T6-T7 level. There is diffuse prominence of the posterior epidural fat which measures roughly 5 mm in thickness and causes superimposed diffuse mild central canal narrowing from the T3 through T10 level. Otherwise there is no significant central canal or neural foramen narrowing. There is no significant paraspinal soft tissue abnormality. IMPRESSION: 1: There is no acute thoracic spine fracture or dislocation. 2: There is multilevel mild thoracic spine degenerative disc disease including posterior disc herniation at the T2-T3 level and posterior disc bulge at the T6-T7 level. 3: There is mild diffuse thoracic posterior epidural fat seen from the T3 through T10 level which causes superimposed mild diffuse central canal narrowing. Otherwise, thoracic spine shows no significant central canal or neural foramen narrowing. Dictated by: Dictated on workstation # [id number]
== END ==
LOC: RAD 08:38
PROVIDERS: ATTEND Internal Medicine
DX: M51.34 Other intervertebral disc degeneration, thoracic region (principal); M51.24 Other intervertebral disc displacement, thoracic region; M48.04 Spinal stenosis, thoracic region; I11.0 Hypertensive heart disease with heart failure; G58.0 Intercostal neuropathy; I25.10 Atherosclerotic heart disease of native coronary artery without angina pectoris; E78.00 Pure hypercholesterolemia, unspecified; I50.22 Chronic systolic (congestive) heart failure; I35.0 Nonrheumatic aortic (valve) stenosis; Z90.49 Acquired absence of other specified parts of digestive tract
CPT/HCPCS: 72146

== ENCOUNTER → 2018-08-02 | Outpatient (CLI) | payer MEDICARE ==
--- NOTE | 2018-08-02 14:50 | Diagnostic Imaging Report ---
INDICATION: 77-year-old asymptomatic postmenopausal female. COMPARISON: 09/05/2009 FINDINGS: AP Spine L1-L4: [BMD (g/cm2): 1.286] [T-Score: 0.7] [Z-Score: 2.5] [BMD Previous: 1.303] [BMD % Change: -1.3] LT Hip Neck: [BMD (g/cm2): 10.27] [T-Score: -0.1] [Z-Score: 2.0] LT Hip Total: [BMD (g/cm2):1.217] [T-Score:1.7] [Z-Score: 3.6] [BMD Previous: 1.218] [BMD % Change: -0.1] RT Hip Neck: [BMD (g/cm2):0.998] [T-Score:-0.3] [Z-Score:1.8] RT Hip Total: [BMD (g/cm2):1.112] [T-score:0.8] [Z-Score:2.7] [BMD Previous:1.141] [BMD % Change:-2.5] *Indicates significant change from prior examination based on 95% confidence level. World Health Organization criteria for BMD interpretation classify patients as Normal (T-score at or above -1.0), Osteopenic (T-score between -1.0 and -2.5) or Osteoporotic (T-score at or below -2.5). LIMITATIONS AND MODIFICATION: None. FRACTURE RISK (FRAX SCORE): Not applicable due to normal bone mineral density. IMPRESSION: 1. Normal bone mineral density. 2. No significant change in bone mineral density since prior examination. 3. See below National Osteoporosis Foundation guidelines on when to potentially initiate pharmacologic therapy. Based on the National Osteoporosis Foundation Guidelines, pharmacologic treatment should be initiated in any of the following, unless clinical conditions suggest otherwise: * Any patient with prior fragility fracture of the hip or vertebrae. A spine fracture indicates 5X risk for subsequent spine fracture and 2X risk for subsequent hip fracture. * Osteoporosis (T-score <-2.5). * Postmenopausal women and men age 50 and older with low bone mass/osteopenia (T-score between -1.0 and -2.5) by DXA and 10-year major osteoporotic fracture greater than 20% or a 10-year probability of hip fracture greater than 3%. These fracture risks are supplied above in the FRAX score, if applicable. * Clinician judgement and/or patient preferences may indicate treatment for people with 10-year fracture probabilities above or below these levels. Dictated by: Dictated on workstation # [id number]
== END ==
LOC: RAD 09:36
PROVIDERS: ATTEND Internal Medicine
DX: M51.24 Other intervertebral disc displacement, thoracic region (principal); M40.299 Other kyphosis, site unspecified; R29.890 Loss of height; Z78.0 Asymptomatic menopausal state
CPT/HCPCS: 77080

== ENCOUNTER → 2018-12-30 | Outpatient (CLI) | payer MEDICARE ==
[~2018-12-30] MED LIST changes: -ACET-2469 PO; +ACET-2715 PO; +ALLO100T PO; +CRAN450T9 PO; -DIGO250T PO; +DIGO250T3 PO; -EZET10TA27 PO; +EZET10TA49 PO; +MAGN250T2 PO; -METO-387 PO; -METO-395 PO; +MTP100TCR PO; +MTP25TSR PO; +POTA10TA10 PO; -SACU1TAB PO; +SACU1TAB2 PO
--- NOTE | 2018-12-30 10:59 | Diagnostic Imaging Report ---
INDICATION: Right-sided abdominal pain and questionable right lobe liver lesion. Correlation is made with CT of the abdomen and pelvis performed 05/03/2018. Liver 17 cm in size. The questionable mass in the inferior aspect of the right lobe of the liver is not appreciated by ultrasound. This may have represented an area of focal fatty sparing. Continued follow-up with CT would be recommended. Gallbladder is surgically absent. No biliary ductal dilatation is seen. The pancreas is obscured. Spleen is normal in size at 10.6 cm. Proximal and mid abdominal aorta are non-aneurysmal. Distal aorta was obscured by bowel gas. IVC is patent. The kidneys are without evidence of calculi or hydronephrosis. There is no ascites. IMPRESSION: 1. Previously noted area of abnormal density in the inferior right lobe of the liver on previous CT is not appreciated by ultrasound. No liver mass is detected. That area may have represented focal sparing. Even so, follow-up with CT would be recommended to confirm stability. 2. Otherwise unremarkable abdominal ultrasound. Dictated by: Dictated on workstation # [id number]
== END ==
LOC: RAD 09:31
PROVIDERS: ATTEND Nurse Practitioner Family
DX: K76.9 Liver disease, unspecified (principal)
CPT/HCPCS: 76700

== ENCOUNTER → 2019-01-20 | Outpatient (CLI) | payer MEDICARE ==
[~2019-01-20] MED LIST changes: +ACET-2469 PO; -ACET-2715 PO; -ALLO100T PO; -CRAN450T9 PO; +DIGO250T PO; -DIGO250T3 PO; -MAGN250T2 PO; +METO-387 PO; +METO-395 PO; -MTP100TCR PO; -MTP25TSR PO; -POTA10TA10 PO; +SACU1TAB PO; -SACU1TAB2 PO
--- NOTE | 2019-01-20 11:35 | Diagnostic Imaging Report ---
EXAMINATION: Right hand 10:42 a.m. INDICATION: Hand pain. TECHNIQUE: Three views were obtained. COMPARISON: There are no recent studies available for comparison. FINDINGS: There is no fracture, dislocation, or acute bony abnormality evident. However, there is severe degenerative disease involving the DIP joints of the second and third digits and at least moderate degenerative disease of the DIP joints of the third and fourth digits. There is also fairly severe degenerative disease of the triscaphe joint. Mild narrowing of the radiocarpal joint is also noted. In addition to the degenerative disease involving the osseous structures, there is soft tissue edema about the DIP and PIP joints of the second digit and of the DIP joint of the fourth digit. IMPRESSION: 1. There is no evidence for an acute bony abnormality. 2. There is degenerative disease involving the hand, as described above. Dictated by: Dictated on workstation # [id number]
== END ==
LOC: RAD 10:17
PROVIDERS: ATTEND Nurse Practitioner Family
DX: M19.041 Primary osteoarthritis, right hand (principal); M79.18 Myalgia, other site; M25.50 Pain in unspecified joint
CPT/HCPCS: 73130

== ENCOUNTER 2019-02-19 12:21 | Inpatient (IN) | payer MEDICARE ==
[~2019-02-19] VITALS: Ht 160 cm; Wt 69.0 kg
[~2019-02-19 12:21] MED LIST changes: -ACET-2469 PO; +ACET-2715 PO; -DIGO250T PO; +DIGO250T3 PO; -METO-387 PO; -METO-395 PO; +MTP100TCR PO; +MTP25TSR PO; -SACU1TAB PO; +SACU1TAB2 PO
--- NOTE | 2019-02-19 12:37 | ED Cough/URI ---
General Chief Complaint: Respiratory Problems Stated Complaint: COUGHING UP BLOOD;WEAK;SOA Source: patient History of Present Illness Date Seen by Provider: Feb 19, 2019 Time Seen by Provider: 12:34 Initial Comments 70-year-old female presents with a complaint of cough. She states that the symptoms have been present for the last 4 days. She has noted associated hemoptysis with coughing. She describes daily hemoptysis as blood tinged sputum. She denies associated fever or chills. Allergies and Home Medications Allergies Coded Allergies: canagliflozin (Verified Allergy, Severe, LIGHT HEADED/HEADACHES/UTI/FELT LIKE SHE WOULD PASS OUT, 02/18/17) liraglutide (Verified Allergy, Severe, RAPID HEART RATE/HEADACHE/DIZZINESS, 02/18/17) Lwlhwme-Fgv-Sug Reductase Inhibitor (Verified Adverse Reaction, Severe, MUSCLE PAIN, 02/18/17) Home Medications Acetaminophen 500 Mg Tablet, 500-1,000 MG PO Q4H PRN for PAIN-MILD, (Reported) Acetaminophen/Diphenhydramine 1 Each Tablet, 1 TAB PO HS, (Reported) Diclofenac Sodium 100 Gm Gel..gram., TP BID PRN for JOINT PAIN, (Reported) Digoxin 250 Mcg Tablet, 125 MCG PO DAILY, (Reported) TAKES 1/2 (250 MCG) TABLET Escitalopram Oxalate 10 Mg Tablet, 10 MG PO DAILY PRN for DEPRESSION, (Reported) Ezetimibe 10 Mg Tablet, 10 MG PO HS, (Reported) Fluticasone Propionate 16 Gm Treichlers.susp, 1 SPRAY NS BID PRN for ALLERGIES, (Reported) Furosemide 40 Mg Tablet, 40 MG PO DAILY, (Reported) Gabapentin 600 Mg Tablet, 600 MG PO TID PRN for nerve pain, (Reported) Hydrocodone Bit/Acetaminophen 1 Tab Tab, 1-2 TAB PO Q6H PRN for PAIN-MODERATE Prescribed by: RAJEEV CAMILO on 03/30/18 1056 Insulin Glargine,Hum.rec.anlog 100 Unit/1 Ml Insuln.pen, 20 UNITS SC DAILY, (Reported) Levothyroxine Sodium 50 Mcg Tablet, 50 MCG PO DAILY, (Reported) Metformin HCl 500 Mg Tablet, 500 MG PO HS, (Reported) Metformin HCl 500 Mg Tablet, 750 MG PO 0700,1200, (Reported) TAKES 1 & 1/2 (500MG) TABLETS Metoprolol Succinate 100 Mg Tab.er.24h, 200 MG PO DAILY, (Reported) take 2 (100mg) tabs Nitroglycerin 0.4 Mg Tab.subl, 0.4 MG SL UD PRN for CHEST PAIN, (Reported) Broughton 3 Polyunsat Fatty Acids 1,000 Mg Cap, 1,000 MG PO DAILY, (Reported) Pantoprazole Sodium 40 Mg Tablet.dr, 40 MG PO DAILY, (Reported) Potassium Chloride 20 Meq Tablet.er, 20 MEQ PO DAILY, (Reported) Sacubitril/Valsartan 1 Each Tablet, 1 TAB PO BID, (Reported) Patient Home Medication List Home Medication List Reviewed: Yes Review of Systems Review of Systems Constitutional: No chills EENTM: no symptoms reported Respiratory: cough, hemoptysis, short of breath Cardiovascular: No chest pain, No palpitations Gastrointestinal: No abdominal pain, No diarrhea, No nausea, No vomiting : No Musculoskeletal: no symptoms reported Skin: no symptoms reported Psychiatric/Neurological: No Symptoms Reported Hematologic/Lymphatic: No Symptoms Reported Immunological/Allergic: no symptoms reported Past Igdtgkm-Mnneoj-Wwkzqm Hx Past Med/Social Hx: Reviewed Nursing Past Med/Soc Hx Patient Social History 2nd Hand Smoke Exposure: No Recent Foreign Travel: No Contact w/Someone Who Travel: No Recent Hopitalizations: No Immunizations Up To Date Tetanus Booster (TDap): Unknown PED Vaccines UTD: No Date of Pneumonia Vaccine: Feb 14, 2017 Date of Influenza Vaccine: Nov 15, 2017 Seasonal Allergies Seasonal Allergies: Yes Past Medical History Surgeries: Yes (bilat TKR, bilat carpal tunnel, R ROTATOR CUFF) Bladder Surgery, Coronary Stent, Hysterectomy, Orthopedic, Tonsillectomy Respiratory: No Currently Using CPAP: No Currently Using BIPAP: No Cardiac: Yes (aortic stenosis, carotid stenosis, cardiac stent) Coronary Artery Disease, High Cholesterol, Hypertension, Peripheral Vascular, Valvular Heart Disease Neurological: Yes Genitourinary: No UTI-Chronic Gastrointestinal: Yes Hiatal Hernia, Gall Bladder Disease Musculoskeletal: Yes Arthritis, Chronic Back Pain Endocrine: Yes Diabetes, Non-Insulin dep HEENT: No Loss of Vision: Denies Hearing Impairment: Denies Cancer: No Psychosocial: Yes Anxiety, Depression Integumentary: No Blood Disorders: No Family Medical History Cardiovascular disease Congenital heart disease Diabetes mellitus Hypertension Heart Disease, Hypertension Physical Exam Vital Signs - First Documented 02/19/19 02/19/19 12:29 13:52 Temp 36.5 Pulse 105 Resp 24 B/P (MAP) 132/82 (99) Pulse Ox 91 O2 Delivery Room Air O2 Flow Rate 2.00 Capillary Refill : Height: 5'3.00" Weight: 144lbs. 0.0oz. [id number]; 25.5 BMI Method:Stated General Appearance: WD/WN, mild distress HEENT: normal ENT inspection Neck: normal inspection Respiratory: decreased breath sounds Cardiovascular: regular rate, rhythm, no murmur Gastrointestinal: normal bowel sounds, non tender Extremities: normal range of motion, non-tender, normal inspection Neurologic/Psychiatric: no motor/sensory deficits, alert, normal mood/affect Skin: normal color, warm/dry Procedures/Interventions Date of ETT Placement: Dec 02, 2017 Time of ETT Placement: 175 Progress/Results/Core Measures Suspected Sepsis SIRS Temperature: Pulse: Respiratory Rate: Laboratory Tests 02/19/19 12:53: White Blood Count 7.5 Blood Pressure / Mean: Laboratory Tests 02/19/19 12:53: Creatinine 0.95, INR Comment 1.0, Platelet Count 532H, Total Bilirubin 0.4 Results/Orders Lab Results Laboratory Tests Test 02/19/19 12:53 Range/Units White Blood Count 7.5 4.3-11.0 10^3/uL Red Blood Count 3.50 L 4.35-5.85 10^6/uL Hemoglobin 9.2 L 11.5-16.0 G/DL Hematocrit 30 L 35-52 % Mean Corpuscular Volume 84 80-99 FL Mean Corpuscular Hemoglobin 26 25-34 PG Mean Corpuscular Hemoglobin Concent 31 L 32-36 G/DL Red Cell Distribution Width 14.8 H 10.0-14.5 % Platelet Count 532 H 130-400 10^3/uL Mean Platelet Volume 9.0 7.4-10.4 FL Neutrophils (%) (Auto) 78 H 42-75 % Lymphocytes (%) (Auto) 16 12-44 % Monocytes (%) (Auto) 4 0-12 % Eosinophils (%) (Auto) 0 0-10 % Basophils (%) (Auto) 1 0-10 % Neutrophils # (Auto) 5.9 1.8-7.8 X 10^3 Lymphocytes # (Auto) 1.2 1.0-4.0 X 10^3 Monocytes # (Auto) 0.3 0.0-1.0 X 10^3 Eosinophils # (Auto) 0.0 0.0-0.3 10^3/uL Basophils # (Auto) 0.1 0.0-0.1 10^3/uL Prothrombin Time 13.8 12.2-14.7 SEC INR Comment 1.0 0.8-1.4 D-Dimer 1.35 H 0.00-0.49 UG/ML Sodium Level 138 135-145 MMOL/L Potassium Level 4.2 3.6-5.0 MMOL/L Chloride Level 104 98-107 MMOL/L Carbon Dioxide Level 20 L 21-32 MMOL/L Anion Gap 14 5-14 MMOL/L Blood Urea Nitrogen 16 7-18 MG/DL Creatinine 0.95 0.60-1.30 MG/DL Estimat Glomerular Filtration Rate 57 BUN/Creatinine Ratio 17 Glucose Level 242 H 70-105 MG/DL Calcium Level 8.9 8.5-10.1 MG/DL Corrected Calcium 9.0 8.5-10.1 MG/DL Total Bilirubin 0.4 0.1-1.0 MG/DL Aspartate Amino Transf (AST/SGOT) 11 5-34 U/L Alanine Aminotransferase (ALT/SGPT) 14 0-55 U/L Alkaline Phosphatase 88 40-136 U/L Troponin I < 0.028 <0.028 NG/ML B-Type Natriuretic Peptide 2789.3 H <100.0 PG/ML Total Protein 6.6 6.4-8.2 GM/DL Albumin 3.9 3.2-4.5 GM/DL Digoxin Level < 0.30 L 0.80-2.00 NG/ML My Orders Orders - RUBENS LANDA MD Cbc With Automated Diff (02/19/19 12:42) Chest 1 View, Ap/Pa Only (02/19/19 12:42) Comprehensive Metabolic Panel (02/19/19 12:42) Protime With Inr (02/19/19 12:42) Fibrin Degradation Products (02/19/19 13:32) BNP (02/19/19 13:32) Troponin I (02/19/19 13:32) Furosemide Injection (Lasix Injection) (02/19/19 13:45) Digoxin (02/19/19 13:35) Oxygen-Administer (02/19/19 13:52) Medications Given in ED Current Medications Medications Dose Ordered Sig/Jose Enrique Route Start Time Stop Time Status Last Admin Dose Admin Furosemide 40 mg ONCE ONCE IVP 02/19/19 13:45 02/19/19 13:46 DC 02/19/19 13:47 40 MG Vital Signs/I&O 02/19/19 02/19/19 02/19/19 12:29 13:52 14:07 Temp 36.5 Pulse 105 87 Resp 24 18 B/P (MAP) 132/82 (99) 131/74 (93) Pulse Ox 91 92 96 O2 Delivery Room Air Nasal Cannula Nasal Cannula O2 Flow Rate 2.00 2.00 Capillary Refill : Progress Note : Time: 14:49 Progress Note Patient's EKG demonstrated sinus tachycardia without any acute current of inj ury. Patient's BNP was 2800. Her troponin was normal. Patient's chest x-ray demonstrated a right sided infiltrate suggestive of congestive heart failure. Next Treatment course patient received 40 mg Lasix IV. Telephone consultation was undertaken with Dr. Hawkins, who is kind enough to admit the patient. Departure Communication (Admissions) Time/Spoke to Admitting Phy: 14:51 Dr. Hawkins Impression Primary Impression: CHF (congestive heart failure) Qualified Codes: I50.40 - Unspecified combined systolic (congestive) and diastolic (congestive) heart failure Disposition: ADMITTED INPATIENT Condition: Improved Admissions Decision to Admit Reason: Admit from ER (General) Decision to Admit/Date: Feb 19, 2019 Time/Decision to Admit Time: 14:51 Departure-Patient Inst. Referrals: BLAKE ESCOBAR DO (PCP/Family) Primary Care Physician RUBENS LANDA MD Feb 19, 2019 12:36 POS
[2019-02-19 13:02] LABS: BASOPHILS # (AUTO) 0.1 10^3/uL (0.0-0.1); BASOPHILS % (AUTO) 1 % (0-10); EOSINOPHILS % (AUTO) 0 % (0-10); HEMATOCRIT 30 % (35-52); HEMOGLOBIN 9.2 G/DL (11.5-16.0); LYMPHOCYTES # (AUTO) 1.2 X 10^3 (1.0-4.0); LYMPHOCYTES % (AUTO) 16 % (12-44); MEAN CORPUSCULAR HEMOGLOBIN 26 PG (25-34); MEAN CORPUSCULAR HGB CONC 31 G/DL (32-36); MEAN CORPUSCULAR VOLUME 84 FL (80-99); MONOCYTES # (AUTO) 0.3 X 10^3 (0.0-1.0); MONOCYTES % (AUTO) 4 % (0-12); NEUTROPHILS # (AUTO) 5.9 X 10^3 (1.8-7.8); NEUTROPHILS % (AUTO) 78 % (42-75); PLATELET COUNT 532 10^3/uL (130-400); RED CELL DISTRIBUTION WIDTH 14.8 % (10.0-14.5); WHITE BLOOD COUNT 7.5 10^3/uL (4.3-11.0)
[2019-02-19 13:12] LABS: PROTHROMBIN TIME PATIENT 13.8 SEC (12.2-14.7)
--- NOTE | 2019-02-19 13:16 | Diagnostic Imaging Report ---
CLINICAL INDICATION: Patient with shortness of air, cough, and hemoptysis this morning. EXAM: Portable chest x-ray, upright view. COMPARISONS: Portable chest x-ray dated 12/17/2017. FINDINGS: There is interval progression of pulmonary vascular congestion. Again seen cardiomegaly. There is mild bibasilar atelectasis. Slightly ill-defined appearance of the bilateral hilar regions. There is no pleural effusion or pneumothorax. There are degenerative spurs involving the thoracic spine. IMPRESSION: 1: There is concern for interval progression of pulmonary venous congestion and mild cardiomegaly which may be related to congestive heart failure. Lung infiltrates in the bilateral perihilar regions and upper lobes may also be considered. 2: There is mild bibasilar atelectasis. Dictated by: Dictated on workstation # [id number]
[2019-02-19 13:22] LABS: ALBUMIN 3.9 GM/DL (3.2-4.5); BILIRUBIN,TOTAL 0.4 MG/DL (0.1-1.0); CALCIUM 8.9 MG/DL (8.5-10.1); CREATININE SERUM 0.95 MG/DL (0.60-1.30); POTASSIUM 4.2 MMOL/L (3.6-5.0); TOTAL PROTEIN 6.6 GM/DL (6.4-8.2)
[2019-02-19] MEDS ORDERED: FUROSEMIDE 40 MG/4 ML INJ (LASIX) IVP ONE (13:45)
[2019-02-19 14:07] VITALS: BP 131/74
--- NOTE | 2019-02-19 14:30 | NUR ---
AMB TO BATHROOM VOIDED 400CC
--- NOTE | 2019-02-19 14:49 | NUR ---
PATIENT REQUEST CARMELLA LANDA TO ORDER.
--- NOTE | 2019-02-19 15:51 | NUR ---
750 CC OUTPUT FROM [facility] ON ADMIT.
[2019-02-19 16:05] VITALS: BP 154/86
[2019-02-19 16:06] VITALS: BP 154/86
[2019-02-19] MEDS ORDERED: CATHETER FLUSH 10 ML SYR IV PRN (16:30)
[2019-02-19] MEDS ORDERED: NS IV 1000 ML 1,000 ML IV SCH (16:30)
[2019-02-19] MEDS ORDERED: AMLO5TAB9 PO (18:30)
[2019-02-19] MEDS ORDERED: APIX5TAB PO (18:30)
[2019-02-19] MEDS ORDERED: INSU100I10 SQ (18:35)
[2019-02-19 19:03] VITALS: BP 136/69
[2019-02-19] MEDS: inSUlin ASPART (NovoLOG) 1 UNIT/0.01 ML (CHARGE PER UNIT) SC SCH (20:17)
[2019-02-19] MEDS: SACUBITRIL/VALSARTAN 24/26 MG (ENTRESTO) TABLET PO SCH (20:57)
[2019-02-19] MEDS: APIXABAN 5 MG (ELIQUIS) TABLET PO SCH (20:57)
--- NOTE | 2019-02-19 23:18 | NUR ---
PT REQUESTED MELATONIN TO HELP HER SLEEP. NOTIFIED DR. TAN OF REQUEST. NEW ORDER RECEIVED FOR MELATONIN 3 MG AT HS FOR INSOMNIA.
[2019-02-19] MEDS ORDERED: MELATONIN 3 MG TABLET PO SCH (23:30)
[2019-02-20] VITALS: BP 150/81
[2019-02-20 04:00] VITALS: BP 133/55
[2019-02-20 05:41] LABS: BASOPHILS # (AUTO) 0.1 10^3/uL (0.0-0.1); BASOPHILS % (AUTO) 1 % (0-10); EOSINOPHILS # (AUTO) 0.1 10^3/uL (0.0-0.3); EOSINOPHILS % (AUTO) 1 % (0-10); HEMATOCRIT 30 % (35-52); HEMOGLOBIN 9.4 G/DL (11.5-16.0); LYMPHOCYTES # (AUTO) 1.1 X 10^3 (1.0-4.0); LYMPHOCYTES % (AUTO) 17 % (12-44); MEAN CORPUSCULAR HEMOGLOBIN 26 PG (25-34); MEAN CORPUSCULAR HGB CONC 31 G/DL (32-36); MEAN CORPUSCULAR VOLUME 84 FL (80-99); MEAN PLATELET VOLUME 9.7 FL (7.4-10.4); MONOCYTES # (AUTO) 0.4 X 10^3 (0.0-1.0); MONOCYTES % (AUTO) 6 % (0-12); NEUTROPHILS # (AUTO) 4.5 X 10^3 (1.8-7.8); NEUTROPHILS % (AUTO) 74 % (42-75); PLATELET COUNT 458 10^3/uL (130-400); RED CELL DISTRIBUTION WIDTH 14.7 % (10.0-14.5); WHITE BLOOD COUNT 6.1 10^3/uL (4.3-11.0)
[2019-02-20 06:05] LABS: ALBUMIN 3.7 GM/DL (3.2-4.5); BILIRUBIN,TOTAL 0.5 MG/DL (0.1-1.0); CALCIUM 8.7 MG/DL (8.5-10.1); CREATININE SERUM 0.93 MG/DL (0.60-1.30); TOTAL PROTEIN 6.1 GM/DL (6.4-8.2)
[2019-02-20] MEDS: inSUlin ASPART (NovoLOG) 1 UNIT/0.01 ML (CHARGE PER UNIT) SC SCH ×4 (06:22→22:11)
--- NOTE | 2019-02-20 06:47 | Diagnostic Imaging Report ---
Indication: CHF. Comparison: 02/19/2019 Findings: Single view of the chest demonstrates cardiac enlargement with persistent decreased central vascular congestion and interstitial infiltrates. Small effusion is now seen in both bases. There is no pneumothorax. Osseous structures are normal. Impression: 1. Persistent but decreased central vascular congestion. 2. New trace bilateral pleural effusions. Dictated by: Dictated on workstation # [id number]
[2019-02-20] MEDS ORDERED: FUROSEMIDE 40 MG/4 ML INJ (LASIX) IVP NR (07:30)
[2019-02-20 08:00] VITALS: BP 121/63
[2019-02-20] MEDS: LEVOTHYROXINE 50 MCG (LEVOTHROID) TAB PO SCH (08:06)
[2019-02-20] MEDS: SACUBITRIL/VALSARTAN 24/26 MG (ENTRESTO) TABLET PO SCH ×2 (08:06→22:11)
[2019-02-20] MEDS: amLODIPine 5 MG (NORVASC) TAB PO SCH (08:06)
[2019-02-20] MEDS: PANTOPRAZOLE 40 MG (PROTONIX) TAB PO SCH (08:06)
[2019-02-20] MEDS: APIXABAN 5 MG (ELIQUIS) TABLET PO SCH ×2 (08:06→22:11)
[2019-02-20] MEDS ORDERED: NON-FORMULARY MEDICATION 1 EA EA (Amlodipine Besylate 5 MG) PO SCH (09:00)
[2019-02-20] MEDS ORDERED: ALLO100T PO (11:36)
[2019-02-20] MEDS ORDERED: MAGN250T2 PO (11:45)
[2019-02-20] MEDS ORDERED: ASPI-999 PO (11:46)
[2019-02-20 12:53] VITALS: BP 109/60
--- NOTE | 2019-02-20 14:02 | NUR ---
SPOKE WITH PT WELL CALLING HER PHARMACIES AND GOING THRU THE EXT MED HISTORY TO COMPLETE THE MED REC. PT HAD A MED LIST HAD LOOKED AT BE OUT OF DATE AND EITHER HAD DUPLICATE MEDS OR DISCONTINUED MEDS. SHE WAS UNSURE OF SOME OF THE NAMES BUT WITH THE EXT MED HISTORY WE WERE ABLE TO GET AN ACCURATE MED REC. CHRISTINA: RX SAYS " 20 UNITS DAILY", THE PT IS ONLY USING 15 UNITS DAILY- SHE SAYS DR. ESCOBAR IS TRYING TO GET HER OFF INSULIN. THE FOLLOWING ARE FILL DATES ACCORDING TO HER PHARMACIES: 09-13-2018 ZETIA #30/30DS 09-13-2018 FUROSEMIDE (ONLY TAKES PRN) 09-13-2018 POTASSIUM (ONLY TAKES PRN) 10-05-2018 GABAPENTIN #270/135 11-10-2018 METFORMIN #360/90DS 01-09-2019 ELIQUIS #60/30DS 01-16-2019 LEXAPRO #30/30DS 01-17-2019 BASAGLAR 3 PRNS 01-19-2019 AMLODIPINE #30/30DS 01-20-2019 PROTONIX #30/30DS 01-20-2019 VOLTAREN #1 TUBE 01-27-2019 ENTRESTO #60/30DS 02-11-2019 ALLOPURINOL #30/30DS Addendum: 02/20/19 at 1414 by KATHLEEN HUANG CPhT TAKES OTC MEDS: TYLENOL TYLENOL PM ASPIRIN CRANBERRY MAG-OX
[2019-02-20] MEDS ORDERED: CRAN450T9 PO (14:13)
[2019-02-20] MEDS ORDERED: guaiFENesin/DM (ROBITUSSIN DM) 10 ML UDC PO PRN (15:15)
--- NOTE | 2019-02-20 15:25 | History & Physical-Hospitalist ---
History of Present Illness HPI/Chief Complaint Melinda Momin is a 70-year-old female with past medical history of hypertension, coronary artery disease, paroxysmal atrial fibrillation, heart failure with preserved ejection fraction, valvular heart disease, chronic kidney disease, type II diabetes mellitus, hypothyroidism, hyperlipidemia, who presented with shortness of breath and cough. She says that the cough is been going on for at least a month. She became worried when her sputum became blood tinged. She complains of orthopnea. She denies any leg swelling. She denies any fevers or chills. She does not take Lasix on a daily basis. She follows with Dr. Owens. Source: patient Exam Limitations: no limitations Date Seen 02/20/19 Time Seen by a Provider: 09:20 Attending Physician Lidia Tan MD PCP Janes Ramos DO Referring Physician Date of Admission Feb 19, 2019 at 14:45 Home Medications & Allergies Home Medications Reviewed patient Home Medication Reconciliation performed by pharmacy medication reconciliations heat treat technician and/or nursing. Patients Allergies have been reviewed. Allergies Allergies Coded Allergies canagliflozin (Verified Allergy, Severe, LIGHT HEADED/HEADACHES/UTI/FELT LIKE SHE WOULD PASS OUT, 02/19/19) liraglutide (Verified Allergy, Severe, RAPID HEART RATE/HEADACHE/DIZZINESS, 02/19/19) Pfkeuhc-Oft-Kty Reductase Inhibitor (Verified Adverse Reaction, Severe, MUSCLE PAIN, 02/19/19) Past Xspouoy-Ojnrgb-Gqmorr Hx Past Med/Social Hx: Reviewed Nursing Past Med/Soc Hx Patient Social History Alcohol Use: Rarely Uses Alcohol Beverage of Choice: Wine Recreational Drug Use: No Smoking Status: Never a Smoker 2nd Hand Smoke Exposure: No Recent Foreign Travel: No Contact w/other who traveled: Yes (grandson was in [place] 4 weeks ago. Saw last week) Recent Hopitalizations: No Recent Infectious Disease Expo: No Immunizations Up To Date Tetanus Booster (TDap): Unknown Pediatric: No Date of Pneumonia Vaccine: Feb 14, 2017 Date of Influenza Vaccine: Dec 29, 2018 Seasonal Allergies Seasonal Allergies: Yes Past Medical History Surgeries: Bladder Surgery, Coronary Stent, Hysterectomy, Orthopedic, Tonsillectomy Currently Using CPAP: No Currently Using BIPAP: No Cardiac: Coronary Artery Disease, High Cholesterol, Hypertension, Peripheral Vascular, Valvular Heart Disease Genitourinary: UTI-Chronic Gastrointestinal: Hiatal Hernia, Gall Bladder Disease Musculoskeletal: Osteoporosis, Arthritis Endocrine: Diabetes, Non-Insulin dep Are Your Blood Sugars Over 250: No Loss of Vision: Denies Hearing Impairment: Denies Psychosocial: Anxiety History of Blood Disorders: No Family History Cardiovascular disease Congenital heart disease 19 FATHER 19 MOTHER G8 BROTHER G8 BROTHER Diabetes mellitus 19 FATHER G8 BROTHER G8 BROTHER Hypertension Myocardial infarction 19 FATHER Heart Disease, Hypertension Review of Systems Constitutional: no symptoms reported EENTM: no symptoms reported Respiratory: cough, hemoptysis (Blood-tinged sputum), orthopnea, phlegm, short of breath Gastrointestinal: no symptoms reported Genitourinary: no symptoms reported Musculoskeletal: no symptoms reported Skin: no symptoms reported Psychiatric/Neurological: No Symptoms Reported Physical Exam Physical Exam Vital Signs Vital Signs - First Documented 02/19/19 02/19/19 12:29 13:52 Temp 36.5 Pulse 105 Resp 24 B/P (MAP) 132/82 (99) Pulse Ox 91 O2 Delivery Room Air O2 Flow Rate 2.00 Capillary Refill : Less Than 3 Seconds Height, Weight, BMI Height: 5'3.00" Weight: 144lbs. 0.0oz. 65.439825xd; 26.95 BMI Method:Stated General Appearance: No Apparent Distress HEENT: PERRL/EOMI, Pharynx Normal Neck: Normal Inspection, Supple Respiratory: No Respiratory Distress, Decreased Breath Sounds Cardiovascular: Regular Rate, Rhythm, No Edema, No Murmur, Normal Peripheral Pulses Gastrointestinal: Normal Bowel Sounds, Non Tender, Soft Extremity: Normal Inspection, Non Tender, No Pedal Edema Neurologic/Psychiatric: Alert, Oriented x3, No Motor/Sensory Deficits, Normal Mood/Affect Skin: Normal Color, Warm/Dry Lymphatic: No Adenopathy Results Results/Procedures Labs Laboratory Tests 02/19/19 12:53 02/20/19 04:40 Patient resulted labs reviewed. Imaging: Reviewed Imaging Report Assessment/Plan Admission Diagnosis Acute on chronic heart failure with preserved ejection fraction Admission Status: Inpatient Order (span 2 midnights) Reason for Inpatient Admission: Heart failure requiring IV diuretics Assessment and Plan Acute on chronic heart failure with preserved ejection fraction Chest x-ray concerning for pulmonary edema X-ray improved this morning following IV diuresis yesterday BNP elevated at 2700 on arrival, appears to be near baseline, likely falsely elevated due to and Entresto Given 1 dose of IV Lasix in the ER, continue IV Lasix twice daily Follows with Dr. Owens, consult cardiology Low-sodium diet, daily weights Type II diabetes mellitus Levemir 10 units daily Sliding scale insulin Chronic kidney disease stage 3 Continue to monitor, avoid nephrotoxins Hypertension Coronary artery disease Paroxysmal atrial fibrillation Valvular heart disease Hypothyroidism Continue home meds DVT prophylaxis: Already receiving therapeutic anticoagulation Diagnosis/Problems Diagnosis/Problems (1) Acute on chronic heart failure with preserved ejection fraction Status: Acute Clinical Quality Measures DVT/VTE Risk/Contraindication: Risk Factor Score Per Nursin RFS Level Per Nursing on Admit: 4+=Very High LIDIA TAN MD Feb 20, 2019 15:25 POS
--- NOTE | 2019-02-20 16:42 | NUR ---
[facility] Provided.
[2019-02-20] MEDS: FUROSEMIDE 40 MG/4 ML INJ (LASIX) IVP SCH (16:56)
[2019-02-20 16:59] VITALS: BP 130/70
[2019-02-20] MEDS ORDERED: ONDANSETRON 4 MG (ZOFRAN) ORAL DISSOLVE TAB PO PRN (18:15)
[2019-02-20] MEDS ORDERED: ONDANSETRON 4 MG/2 ML (SDV) Z0FRAN IVP PRN (18:15)
[2019-02-20 19:50] VITALS: BP 153/67
[2019-02-21] VITALS: BP 109/71
[2019-02-21 04:00] VITALS: BP 111/70
[2019-02-21 06:39] LABS: CALCIUM 8.5 MG/DL (8.5-10.1); CREATININE SERUM 0.92 MG/DL (0.60-1.30); MAGNESIUM 1.7 MG/DL (1.6-2.4); POTASSIUM 3.6 MMOL/L (3.6-5.0)
[2019-02-21] MEDS: inSUlin ASPART (NovoLOG) 1 UNIT/0.01 ML (CHARGE PER UNIT) SC SCH ×2 (06:54→11:31)
[2019-02-21] MEDS: FUROSEMIDE 40 MG/4 ML INJ (LASIX) IVP SCH (06:57)
--- NOTE | 2019-02-21 07:46 | Consultation-Cardiology ---
HPI-Cardiology Cardiology Consultation: Date of Consultation 02/21/19 Time Seen by a Provider: 10:40 Date of Admission 02-20-19 Attending Physician Lidia Tan MD Admitting Physician Janes Ramos DO Consulting Physician Nathanael Owens MD HPI: Chief Complaint: Progressive dyspnea Ms. Momin is a 78 year old female who has been admitted to [facility] from the ED with increasing SOB and frequent lose cough of clear sputum for the last 4 weeks. She reports orthopnea. She states she had an episode of forceful coughing on Wednesday which resulted in pink-tinged sputum. No recurrence since that episode. She reports d/t continued progressive dyspnea she came to the ED yesterday. She reports nausea with emesis yesterday afternoon. No c/o CP, palpitations, syncope, near syncope or LE swelling. She states she feels her breathing is much better today. Sitting up in a recliner at the bedside. Review of Systems-Cardiology Review of Systems Constitutional: No chills, No fever, No malaise Eyes: No vision change Ears/Nose/Throat: epistaxis (left nare); No recent hearing loss Respiratory: As described under HPI Cardiovascular: As described under HPI Gastrointestinal: No constipation, No diarrhea; nausea, vomiting Genitourinary: No dysuria, No hematuria : No Musculoskeletal: no symptoms reported Skin: No rash on exposed areas, No ulcerations on exposed areas Psychiatric/Neurological: No seizure, No focal weakness, No syncope Hematologic: No bleeding abnormalities QGK-Ilcyfn-Xdwcuu Hx Patient Social History Alcohol Use: Rarely Uses Recreational Drug Use: No Smoking Status: Never a Smoker 2nd Hand Smoke Exposure: No Recent Foreign Travel: No Recent Infectious Disease Expo: No Hospitalization with Isolation: Denies Immunizations Up To Date Tetanus Booster (TDap): Unknown Date of Pneumonia Vaccine: Feb 14, 2017 Date of Influenza Vaccine: Dec 29, 2018 Past Medical History PMH As described under Assessment. Family Medical History Family Medical History: Reports fam h/o early CAD Family History: Cardiovascular disease Congenital heart disease 19 FATHER 19 MOTHER G8 BROTHER G8 BROTHER Diabetes mellitus 19 FATHER G8 BROTHER G8 BROTHER Hypertension Myocardial infarction 19 FATHER Allergies and Home Medications Allergies Coded Allergies: canagliflozin (Verified Allergy, Severe, LIGHT HEADED/HEADACHES/UTI/FELT LIKE SHE WOULD PASS OUT, 02/19/19) liraglutide (Verified Allergy, Severe, RAPID HEART RATE/HEADACHE/DIZZINESS, 02/19/19) Dcbpmjx-Xqk-Qkm Reductase Inhibitor (Verified Adverse Reaction, Severe, MUSCLE PAIN, 02/19/19) Home Medications Acetaminophen 500 Mg Tablet, 500-1,000 MG PO Q4H PRN for PAIN-MILD, (Reported) Acetaminophen/Diphenhydramine 1 Each Tablet, 1 TAB PO HS, (Reported) Allopurinol 100 Mg Tablet, 100 MG PO DAILY, (Reported) Amlodipine Besylate 5 Mg Tablet, 5 MG PO DAILY, (Reported) Apixaban 5 Mg Tablet, 5 MG PO BID, (Reported) Aspirin 81 Mg Tab.chew, 81 MG PO DAILY, (Reported) Cranberry Fruit 450 Mg Tablet, 450 MG PO DAILY, (Reported) Diclofenac Sodium 100 Gm Gel..gram., 1 UNIT TP QID PRN for JOINT PAIN, (Reported) Escitalopram Oxalate 10 Mg Tablet, 10 MG PO DAILY, (Reported) Ezetimibe 10 Mg Tablet, 10 MG PO HS, (Reported) Fluticasone Propionate 16 Gm [place].susp, 1 SPRAY NS BID PRN for ALLERGIES, (Reported) Furosemide 40 Mg Tablet, 40 MG PO DAILY Prescribed by: LIDIA TAN on 02/21/19 100 Gabapentin 600 Mg Tablet, 600 MG PO BID PRN for NERVE PAIN, (Reported) Insulin Glargine,Hum.rec.anlog 100 Unit/1 Ml Insuln.pen, 15 UNITS SC DAILY, (Reported) Magnesium 250 Mg Tablet, 250 MG PO DAILY, (Reported) Metformin HCl 500 Mg Tablet, 500 MG PO HS, (Reported) Metformin HCl 500 Mg Tablet, 750 MG PO 0700,1200, (Reported) TAKES 1 & 1/2 (500MG) TABLETS Pantoprazole Sodium 40 Mg Tablet.dr, 40 MG PO DAILY, (Reported) Potassium Chloride 20 Meq Tablet.er, 20 MEQ PO DAILY PRN for SWELLLING, (Reported) Potassium Chloride 10 Meq Tablet.er, 10 MEQ PO DAILY Prescribed by: LIDIA TAN on 02/21/19 1003 Sacubitril/Valsartan 1 Each Tablet, 1 TAB PO BID, (Reported) Patient Home Medication List Home Medication List Reviewed: Yes Physical Exam-Cardiology Physical Exam Vital Signs/I&O 02/21/19 02/21/19 02/21/19 04:00 08:00 08:00 Temp 36.6 36.0 Pulse 113 110 Resp 18 20 B/P (MAP) 111/70 (84) 103/56 (72) Pulse Ox 94 96 96 O2 Delivery Room Air Room Air Room Air O2 Flow Rate 2.00 02/21/19 00:00 Intake Total 1140 ml Output Total 1825 ml Balance -685 ml Capillary Refill : Less Than 3 Seconds Constitutional: AAO x 3, well-developed, well-nourished HEENT: PERRL, oral hygience is good; No ulceration Neck: No carotid bruit; carotid pulses are 2 + bilaterally Respiratory: No accessory muscle use, No respiratory distress; chest expansion is symmetric, chest is bilaterally symmetric, other (coarse breath sounds lower lobes bilat; frequent cough) Cardiovascular: No JVD; S1 and S2 Gastrointestinal: No tender; soft, round, audible bowel sounds Extremities: no lower extremity edema bilateral Neurologic/Psychiatric: grossly intact (moves all extremities) Skin: No rash on exposed areas, No ulcerations on exposed areas Data Review Labs Laboratory Tests 02/20/19 16:32: Glucometer 182H 02/20/19 20:51: Glucometer 204H 02/21/19 05:30: Sodium Level 137, Potassium Level 3.6, Chloride Level 98, Carbon Dioxide Level 24, Anion Gap 15H, Blood Urea Nitrogen 17, Creatinine 0.92, Estimat Glomerular Filtration Rate 59, BUN/Creatinine Ratio 18, Glucose Level 146H, Calcium Level 8.5, Magnesium Level 1.7 02/21/19 06:37: Glucometer 169H 02/21/19 11:19: Glucometer 193H Radiology NAME: CAMERON MOMIN [facility] REC#: [id number] PT STATUS: ADM IN : 1940 PHYSICIAN: LIDIA TAN MD ADMIT DATE: 02/19/19 Signed Date of Exam:02/20/19 CHEST 1 VIEW, AP/PA ONLY Indication: CHF. Comparison: 02/19/2019 Findings: Single view of the chest demonstrates cardiac enlargement with persistent decreased central vascular congestion and interstitial infiltrates. Small effusion is now seen in both bases. There is no pneumothorax. Osseous structures are normal. Impression: 1. Persistent but decreased central vascular congestion. 2. New trace bilateral pleural effusions. Dictated by: Dictated on workstation # [id number] Dict: 02/20/19 0559 Trans: 02/20/19 0932 CVB [id number] Interpreted by: ERVIN JIMENEZ Electronically signed by: ERVIN JIMENEZ 02/20/19931 ECG Impression ECG Initial ECG Rhythm: S.Tach A/P-Cardiology Assessment/Admission Diagnosis Acute on Chronic diastolic CHF PAF, first documented [facility] tele strips [facility] in early 2016. Currently in NSR H/o ischemic cm. LVEF on 02/18/17 was 35%. Most recent LVEF of Oct 2018, LVEF 50- 55%. Echo of Oct 2018 LVEF 50-55%. Wall thickness is mildly increased with concentric hypertrophy. No regional wall motion abnormalities. Grade 2 diastolic dysfunction. LA mod dilated. Mod calcified annulus with mild regurg. AoV with mild regurg. Severe aortic stenosis with valve area approx 0.9 sq cm and mean gradient approx 33 mmHg. RVSP approx 25 mmHg. Echo of 02-20-[address] Chandra showed LVEF 45-50%. Mod calcified mitral valve. Mod AoV stenosis with peak gradient of 53 mmHg and mean gradient of 32 mmHg; valve measuring 1.1 cm2. CAD. S/p prox LAD stenting by Dr Obrien at [facility] on cath of 02/20/17: Promus 2.5x24. Cath on 02/18/17 prior to cor stenting showed dual LAD, one of which was proximally occluded and the other was severely diseased. Rest of the cors had mod dz MPI of 01/12/17: anteroapical infarction w/o significant ischemia; LVEF 39% Dizziness and vertigo, improved after reduction of anti-htn and Invokana treatment in early Apr 2015. MRI head on 05/10/15 (Dr Mariano) did not show lesions other than possibility of chronic microvascular disease Valvular heart disease. Cath of 02/18/17 showed mod MR and a gradient across AoV of 25-30 mmHg. Mod with valve area 1.4 cm sq and mean gradient across aortic valve of 23 mmHg on echo of 01/08/17. Subsequent echo as noted above DM II CKD stage 3, likely diabetic nephropathy. eGFR on 05/25/17 is 44 Hyperlipidemia, but has intolerance to statins (severe joint pains) Hypothyroidism, treated with thyroid replacement therapy. TSH normal (2.19) on 07/07/17 Bilateral leg and foot discomfort which has been diagnosed as neuropathy. Normal bilat EDDY in June 2014 Mild bilat carotid arterial disease on carotid u/s of Oct 2018 Abn ECG. ECG of 05/13/17: NSR, old ASMI Chronic mid back pain treated with back injections by Dr Guevara at [facility] H/o surgeries: S/p hysterectomy w/o oophorectomy; S/p bilateral knee replacement; H/o R rotator cuff surgery, cholecystectomy, ovarian cyst removal Clinical Quality Measures DVT/VTE Risk/Contraindication: Risk Factor Score Per Nursin RFS Level Per Nursing on Admit: 4+=Very High VINEET DASILVA Feb 21, 2019 07:46 POS
[2019-02-21 08:00] VITALS: BP 103/56
[2019-02-21] MEDS: APIXABAN 5 MG (ELIQUIS) TABLET PO SCH (08:49)
[2019-02-21] MEDS: amLODIPine 5 MG (NORVASC) TAB PO SCH (08:49)
[2019-02-21] MEDS: LEVOTHYROXINE 50 MCG (LEVOTHROID) TAB PO SCH (08:49)
[2019-02-21] MEDS: PANTOPRAZOLE 40 MG (PROTONIX) TAB PO SCH (08:49)
[2019-02-21] MEDS: SACUBITRIL/VALSARTAN 24/26 MG (ENTRESTO) TABLET PO SCH (08:49)
--- NOTE | 2019-02-21 09:37 | NUR ---
Pt 's recently a pt dealing with grief issues after 59 years of marriage. Has verys upportive family thath live close.Don't anticipate any continued care needs.
[2019-02-21] MEDS ORDERED: POTA10TA10 PO (10:03)
[2019-02-21] MEDS ORDERED: FURO40TA4 PO (10:03)
[2019-02-21] MEDS ORDERED: MAGNESIUM 1 GM/100 ML IVPB 100 ML IV ONE (10:45)
[2019-02-21] MEDS ORDERED: FUROSEMIDE 40 MG (LASIX) TAB PO ONE (10:45)
[2019-02-21] MEDS ORDERED: KCL 10 MEQ TAB (MICRO K) PO ONE (10:45)
--- NOTE | 2019-02-21 10:52 | Progress Note - Hospitalist ---
Subjective HPI/CC On Admission Date Seen by Provider: Feb 21, 2019 Time Seen by Provider: 10:47 Melinda Momin is a 70-year-old female with past medical history of hypertension, coronary artery disease, paroxysmal atrial fibrillation, heart failure with preserved ejection fraction, valvular heart disease, chronic kidney disease, type II diabetes mellitus, hypothyroidism, hyperlipidemia, who presented with shortness of breath and cough. She says that the cough is been going on for at least a month. She became worried when her sputum became blood tinged. She complains of orthopnea. She denies any leg swelling. She denies any fevers or chills. She does not take Lasix on a daily basis. She follows with Dr. Owens. Subjective/Events-last exam She reports improved shortness of breath and cough today. She had an episode of nausea and vomiting yesterday. She denies any chest pain. She denies any abdominal pain or diarrhea. She has not had any further nausea or vomiting today. Objective Exam Vital Signs Vital Signs Date Time Temp Pulse Resp B/P (MAP) Pulse Ox O2 Delivery O2 Flow Rate FiO2 02/21/19 08:00 36.0 110 20 103/56 (72) 96 Room Air 02/21/19 08:00 2.00 Capillary Refill : Less Than 3 Seconds General Appearance: No Apparent Distress, WD/WN HEENT: PERRL/EOMI, Pharynx Normal Neck: Normal Inspection, Supple Respiratory: Lungs Clear, Normal Breath Sounds, No Respiratory Distress Cardiovascular: Regular Rate, Rhythm, No Edema, Systolic Murmur Gastrointestinal: Normal Bowel Sounds, Non Tender, Soft Extremity: Normal Inspection, Non Tender, No Pedal Edema Neurologic/Psychiatric: Alert, Oriented x3, No Motor/Sensory Deficits, Normal Mood/Affect Skin: Normal Color, Warm/Dry Results/Procedures Lab Laboratory Tests 02/21/19 05:30 Patient resulted labs reviewed. Imaging: Reviewed Imaging Report Assessment/Plan Assessment and Plan Assess & Plan/Chief Complaint Acute on chronic heart failure with preserved ejection fraction Chest x-ray concerning for pulmonary edema BNP elevated at 2700 on arrival, appears to be near baseline, likely falsely elevated due to and Entresto Follows with Dr. Owens, consult cardiology Low-sodium diet, daily weights, strict I/O Echo revealed ejection fraction 45-50 percent and moderate aortic stenosis Transition to oral Lasix today Type II diabetes mellitus Levemir 10 units daily Sliding scale insulin Chronic kidney disease stage 3 Continue to monitor, avoid nephrotoxins Hypertension Coronary artery disease Paroxysmal atrial fibrillation Valvular heart disease Hypothyroidism Continue home meds DVT prophylaxis: Already receiving therapeutic anticoagulation Diagnosis/Problems Diagnosis/Problems (1) Acute on chronic heart failure with preserved ejection fraction Status: Acute Clinical Quality Measures DVT/VTE Risk/Contraindication: Risk Factor Score Per Nursin RFS Level Per Nursing on Admit: 4+=Very High LIDIA TAN MD Feb 21, 2019 10:52 POS
[2019-02-21 12:00] VITALS: BP 91/51
--- NOTE | 2019-02-21 12:04 | Consultation-Cardiology ---
HPI-Cardiology Cardiology Consultation: Date of Consultation 02/21/19 Time Seen by a Provider: 10:00 Date of Admission Attending Physician Lidia Tan MD Admitting Physician Janes Ramos DO Consulting Physician DEMARIO LOPEZ MD, MA, FACP, FACC, FSCAI, CCDS HPI: Chief Complaint: CC: Increasing shortness of breath and cough Ms. Momin is a 78 year old female who has been admitted to [facility] from the ED with increasing SOB and frequent lose cough productive of clear sputum for the last 4 weeks. She reports orthopnea. She states she had an episode of forceful coughing on Wednesday which resulted in pink-tinged sputum. No recurrence since that episode. She reports d/t continued progressive dyspnea she came to the ED yesterday. She reports nausea with emesis yesterday afternoon. No c/o CP, palpitations, syncope, near syncope or LE swelling. She states she feels her breathing is much better today. Sitting up in a recliner at the bedside. Review of Systems-Cardiology Review of Systems Constitutional: No chills, No fever, No malaise Eyes: No vision change Ears/Nose/Throat: epistaxis (left nare); No recent hearing loss Respiratory: As described under HPI Cardiovascular: As described under HPI Gastrointestinal: No constipation, No diarrhea; nausea, vomiting Genitourinary: No dysuria, No hematuria : No Musculoskeletal: no symptoms reported Skin: No rash on exposed areas, No ulcerations on exposed areas Psychiatric/Neurological: No seizure, No focal weakness, No syncope Hematologic: No bleeding abnormalities ZKK-Unnxni-Tadvue Hx Patient Social History Alcohol Use: Rarely Uses Recreational Drug Use: No Smoking Status: Never a Smoker 2nd Hand Smoke Exposure: No Recent Foreign Travel: No Recent Infectious Disease Expo: No Hospitalization with Isolation: Denies Immunizations Up To Date Tetanus Booster (TDap): Unknown Date of Pneumonia Vaccine: Feb 14, 2017 Date of Influenza Vaccine: Dec 29, 2018 Past Medical History PMH As described under Assessment. Family Medical History Family Medical History: Reports fam h/o early CAD Family History: Cardiovascular disease Congenital heart disease 19 FATHER 19 MOTHER G8 BROTHER G8 BROTHER Diabetes mellitus 19 FATHER G8 BROTHER G8 BROTHER Hypertension Myocardial infarction 19 FATHER Allergies and Home Medications Allergies Coded Allergies: canagliflozin (Verified Allergy, Severe, LIGHT HEADED/HEADACHES/UTI/FELT LIKE SHE WOULD PASS OUT, 02/19/19) liraglutide (Verified Allergy, Severe, RAPID HEART RATE/HEADACHE/DIZZINESS, 02/19/19) Xajxlqu-Qkb-Byy Reductase Inhibitor (Verified Adverse Reaction, Severe, MUSCLE PAIN, 02/19/19) Home Medications Acetaminophen 500 Mg Tablet, 500-1,000 MG PO Q4H PRN for PAIN-MILD, (Reported) Acetaminophen/Diphenhydramine 1 Each Tablet, 1 TAB PO HS, (Reported) Allopurinol 100 Mg Tablet, 100 MG PO DAILY, (Reported) Amlodipine Besylate 5 Mg Tablet, 5 MG PO DAILY, (Reported) Apixaban 5 Mg Tablet, 5 MG PO BID, (Reported) Aspirin 81 Mg Tab.chew, 81 MG PO DAILY, (Reported) Cranberry Fruit 450 Mg Tablet, 450 MG PO DAILY, (Reported) Diclofenac Sodium 100 Gm Gel..gram., 1 UNIT TP QID PRN for JOINT PAIN, (Reported) Escitalopram Oxalate 10 Mg Tablet, 10 MG PO DAILY, (Reported) Ezetimibe 10 Mg Tablet, 10 MG PO HS, (Reported) Fluticasone Propionate 16 Gm [place].susp, 1 SPRAY NS BID PRN for ALLERGIES, (Reported) Furosemide 40 Mg Tablet, 40 MG PO DAILY Prescribed by: LIDIA TAN on 02/21/191002 Gabapentin 600 Mg Tablet, 600 MG PO BID PRN for NERVE PAIN, (Reported) Insulin Glargine,Hum.rec.anlog 100 Unit/1 Ml Insuln.pen, 15 UNITS SC DAILY, ( Reported) Magnesium 250 Mg Tablet, 250 MG PO DAILY, (Reported) Metformin HCl 500 Mg Tablet, 500 MG PO HS, (Reported) Metformin HCl 500 Mg Tablet, 750 MG PO 0700,1200, (Reported) TAKES 1 & 1/2 (500MG) TABLETS Pantoprazole Sodium 40 Mg Tablet.dr, 40 MG PO DAILY, (Reported) Potassium Chloride 20 Meq Tablet.er, 20 MEQ PO DAILY PRN for SWELLLING, (Reported) Potassium Chloride 10 Meq Tablet.er, 10 MEQ PO DAILY Prescribed by: LIDIA TAN on 02/21/19 100 Sacubitril/Valsartan 1 Each Tablet, 1 TAB PO BID, (Reported) Patient Home Medication List Home Medication List Reviewed: Yes Physical Exam-Cardiology Physical Exam Vital Signs/I&O 12/12/3102/21/19 02/21/19 02/21/19 00:00 04:00 08:00 08:00 Temp 36.6 36.6 36.0 Pulse 110 113 110 Resp 16 18 20 B/P (MAP) 109/71 (84) 111/70 (84) 103/56 (72) Pulse Ox 94 94 96 96 O2 Delivery Room Air Room Air Room Air Room Air O2 Flow Rate 2.00 02/21/19 00:00 Intake Total 1140 ml Output Total 1825 ml Balance -685 ml Capillary Refill : Less Than 3 Seconds Constitutional: AAO x 3, well-developed, well-nourished HEENT: PERRL, oral hygience is good; No ulceration Neck: No carotid bruit; carotid pulses are 2 + bilaterally Respiratory: No accessory muscle use, No respiratory distress; chest expansion is symmetric, chest is bilaterally symmetric, other (coarse breath sounds lower lobes bilat; frequent cough) Cardiovascular: No JVD; S1 and S2 Gastrointestinal: No tender; soft, round, audible bowel sounds Extremities: no lower extremity edema bilateral Neurologic/Psychiatric: grossly intact (moves all extremities) Skin: No rash on exposed areas, No ulcerations on exposed areas Data Review Labs Laboratory Tests 02/20/19 16:32: Glucometer 182H 02/20/19 20:51: Glucometer 204H 02/21/19 05:30: Sodium Level 137, Potassium Level 3.6, Chloride Level 98, Carbon Dioxide Level 24, Anion Gap 15H, Blood Urea Nitrogen 17, Creatinine 0.92, Estimat Glomerular Filtration Rate 59, BUN/Creatinine Ratio 18, Glucose Level 146H, Calcium Level 8.5, Magnesium Level 1.7 02/21/19 06:37: Glucometer 169H 02/21/19 11:19: Glucometer 193H Laboratory Tests 02/19/19 12:53 02/20/19 04:40 02/21/19 05:30 A/P-Cardiology Assessment/Admission Diagnosis Acute on chronic diastolic and systolic CHF PAF, first documented on tele strips at [facility] in early 2016. Currently in NSR H/o ischemic cm. LVEF on 02/18/17 was 35%. Most recent LVEF of Oct 2018. Echo of Oct 2018 LVEF 50-55%. Last echo on 02-20-[address] Chandra showed LVEF 45-50%, mod calcified mitral valve, mod AoV stenosis with peak gradient of 53 mmHg and mean gradient of 32 mmHg; valve measuring 1.1 cm2. CAD. S/p prox LAD stenting by Dr Obrien at [facility] on cath of 02/20/17: Promus 2.5x24. Cath on 02/18/17 prior to cor stenting showed dual LAD, one of which was proximally occluded and the other was severely diseased. Rest of the cors had mod dz MPI of 01/12/17: anteroapical infarction w/o significant ischemia; LVEF 39% Dizziness and vertigo, improved after reduction of anti-htn and Invokana treatment in early Apr 2015. MRI head on 05/10/15 (Dr Mariano) did not show lesions other than possibility of chronic microvascular disease Valvular heart disease. Cath of 02/18/17 showed mod MR and a gradient across AoV of 25-30 mmHg. Mod with valve area 1.4 cm sq and mean gradient across aortic valve of 23 mmHg on echo of 01/08/17. Subsequent echo as noted above DM II CKD stage 2-3, likely diabetic nephropathy Hyperlipidemia, but has intolerance to statins (severe joint pains) Hypothyroidism, treated with thyroid replacement therapy. TSH normal (2.19) on 07/07/17 Bilateral leg and foot discomfort which has been diagnosed as neuropathy. Normal bilat EDDY in June 2014 Mild bilat carotid arterial disease on carotid u/s of Oct 2018 Abn ECG. ECG of 05/13/17: NSR, old ASMI Chronic mid back pain treated with back injections by Dr Guevara at [facility] H/o surgeries: S/p hysterectomy w/o oophorectomy; S/p bilateral knee replacement; H/o R rotator cuff surgery, cholecystectomy, ovarian cyst removal Discussion and Recomendations * Change furosemide to oral and increase home dose * Add K * Replenish Mg * D/c amlodipine to provide more room on bp * Increase ambulation * Repeat labs tomorrow * If does well on above, then d/c tomorrow * I discussed her case with Dr Tan on the phone Clinical Quality Measures DVT/VTE Risk/Contraindication: Risk Factor Score Per Nursin RFS Level Per Nursing on Admit: 4+=Very High DEMARIO LOPEZ MD [facility] Feb 21, 2019 12:04 POS
[2019-02-22] MEDS ORDERED: KCL 10 MEQ TAB (MICRO K) PO SCH (07:00)
[2019-02-22] MEDS ORDERED: FUROSEMIDE 40 MG (LASIX) TAB PO SCH (09:00)
--- NOTE | 2019-02-23 11:51 | Physician Query-Final Dx ---
Final Diagnosis Give Final Diagnosis Please give Final Diagnosis HINA GONZALES Feb 23, 2019 11:51 POS
--- NOTE | 2019-03-06 17:28 | Discharge Summary ---
Discharge Summary Hospital Course Problems/Dx: (1) Acute on chronic heart failure with preserved ejection fraction Status: Acute Hospital Course Date of Admission: Feb 19, 2019 at 14:45 Admission Diagnosis : Acute on chronic heart failure with preserved ejection fraction Family Physician/Provider: Janes Ramos DO Date of Discharge: 03/06/19 Discharge Diagnosis: Acute on chronic heart failure with preserved ejection fraction Hospital Course: Melinda Momin is a 70-year-old female with past medical history of hypertension, coronary artery disease, paroxysmal atrial fibrillation, heart failure with preserved ejection fraction, valvular heart disease, chronic kidney disease, type II diabetes mellitus, hypothyroidism, hyperlipidemia, who presented with shortness of breath and cough and was admitted with acute heart failure exacerbation. She was treated with IV diuretics. Cardiology was consulted. She underwent an echo which revealed EF 45%. She was started on scheduled Lasix 40 mg daily with potassium supplementation. She was scheduled to follow up with Dr. Owens after discharge. Labs and Pending Lab Test: Home Meds Active Potassium Chloride 10 Meq Tablet.er 10 Meq PO DAILY 30 Days Furosemide 40 Mg Tablet 40 Mg PO DAILY 30 Days Reported Cranberry (Cranberry Fruit) 450 Mg Tablet 450 Mg PO DAILY Aspirin 81 Mg Tab.chew 81 Mg PO DAILY Magnesium 250 Mg Tablet 250 Mg PO DAILY Allopurinol 100 Mg Tablet 100 Mg PO DAILY Eliquis (Apixaban) 5 Mg Tablet 5 Mg PO BID Amlodipine Besylate 5 Mg Tablet 5 Mg PO DAILY Potassium Chloride 20 Meq Tablet.er 20 Meq PO DAILY PRN Tylenol Extra Strength (Acetaminophen) 500 Mg Tablet 500-1,000 Mg PO Q4H PRN Voltaren (Diclofenac Sodium) 100 Gm Gel..gram. 1 Unit TP QID PRN Escitalopram Oxalate 10 Mg Tablet 10 Mg PO DAILY Basaglar Kwikpen U-100 (Insulin Glargine,Hum.rec.anlog) 100 Unit/1 Ml Insuln.pen 15 Units SC DAILY Fluticasone Propionate 16 Gm [place].susp 1 [place] NS BID PRN Metformin HCl 500 Mg Tablet 750 Mg PO 0700,1200 TAKES 1 & 1/2 (500MG) TABLETS Entresto 24 mg-26 mg Tablet (Sacubitril/Valsartan) 1 Each Tablet 1 Tab PO BID Ezetimibe 10 Mg Tablet 10 Mg PO HS Pantoprazole Sodium 40 Mg Tablet.dr 40 Mg PO DAILY Metformin HCl 500 Mg Tablet 500 Mg PO HS Tylenol Pm Ex-Strength Caplet (Acetaminophen/Diphenhydramine) 1 Each Tablet 1 Tab PO HS Gabapentin 600 Mg Tablet 600 Mg PO BID PRN Assessment/Pt Instructions Take medications as prescribed. Take Lasix every day with potassium supplement. Follow up with Dr. Owens. Discharge Planning: <30 minutes discharge planning Discharge Instructions Discharge Diet: Low Sodium Diet Activity as Tolerated: Yes Discharge Physical Examination Allergies: Coded Allergies: canagliflozin (Verified Allergy, Severe, LIGHT HEADED/HEADACHES/UTI/FELT LIKE SHE WOULD PASS OUT, 02/19/19) liraglutide (Verified Allergy, Severe, RAPID HEART RATE/HEADACHE/DIZZINESS, 02/19/19) Tsvjmyq-Kvn-Dpx Reductase Inhibitor (Verified Adverse Reaction, Severe, MUSCLE PAIN, 02/19/19) Discharge Summary Date of Admission Feb 19, 2019 at 14:45 Date of Discharge Feb 21, 2019 at 13:31 Discharge Date: Feb 21, 2019 Discharge Time: 13:31 Admission Diagnosis Acute on chronic heart failure with preserved ejection fraction Consults/Procedures Consulations Cardiology Discharge Diagnosis Acute on chronic heart failure with preserved ejection fraction (1) Acute on chronic heart failure with preserved ejection fraction Status: Acute Clinical Quality Measures DVT/VTE Risk/Contraindication: Risk Factor Score Per Nursin RFS Level Per Nursing on Admit: 4+=Very High LIDIA TAN MD Mar 06, 2019 17:28
--- OUTSIDE RECORDS SUMMARY | 2019-03-16 19:21 | XMS REPORT | CCD ---
Author Author Melinda Nicole Organization Mila Nicole MD, [facility] Address [address] [place] [address] Phone Care Team Providers Care Research Specialist Name Role Phone PP Unavailable CCM Unavailable Summary Purpose Interface Exchange Insurance Providers Payer name Policy type / Coverage type Covered constitution party ID Effective Begin Date Effective End Date WPS Medicare Part B Medicare Part B [id number] Unknown AARP Medicare Part B [id number] Unknown Family history Mother Diagnosis Age At Onset Arthritis Unknown Daughter Diagnosis Age At Onset No Known Diseases N/A Daughter Diagnosis Age At Onset No Known Diseases N/A Father Diagnosis Age At Onset Hypertension Unknown Diabetes Unknown Stroke Unknown Cancer Unknown Daughter Diagnosis Age At Onset glioblastoma Unknown Social History Social History Element Codes Description Effective Dates Marital status Unknown M jose enrique Anna 06/18/2016 Number of children Unknown 3 08/14/[address]: 771895483 Never smoker 08/14/[address]: 942719103 Never drinks alcohol 08/14/2014 Allergies, Adverse Reactions, Alerts Substance Reaction Codes Entered Date Inactivated Date Status * OTHER REACTION - S EE ANSWER BOX Invokana, Victoza Unknown 03/19/2017 No Inactive Date Active Paxil has blurred vision RxNorm: 493207 08/14/2014 No Inactive Date Active Lipitor RxNorm: 48232 08/14/2014 No Inactive Date Active Past Medical History Illness Codes Condition Status Onset Date Resolved Date Encounter for screen ing mammogram for malignant neoplasm of breast ICD-9: V76.10 ICD-10: Z12.31 Active 06/07/2018 Unknown Right upper quadrant pain ICD-9: 789.01 ICD-10: R10.11 Active 03/28/2018 Unknown Essential (primary) hypertension ICD-9: 401.9 ICD-10: I10 Active 08/13/2014 Unknown Dysuria ICD-9: 788.1 ICD-10: R30.0 Active 04/15/2017 Unknown Low back pain ICD-9: 724.2 ICD-10: M54.5 Active 08/13/2015 Unknown Type 2 diabetes anne itus with hyperglycemia ICD-9: 250.00 ICD-10: E11.65 Active 12/03/2014 Unknown Essential (primary) hypertension ICD-9: 401.1 ICD-10: I10 Active 04/15/2017 Unknown Generalized anxiety disorder ICD-9: 300.00 ICD-10: F41.1 Active 01/07/2017 Unknown Major depressive dis order, recurrent, mild ICD-9: 296.31 ICD-10: F33.0 Active 09/14/2016 Unknown Carpal tunnel syndro me, left upper limb ICD-9: 354.0 ICD-10: G56.02 Active 11/25/2017 Unknown Encounter for immuni zation ICD-9: V04.81 ICD-10: Z23 Active 12/03/2014 Unknown 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 ICD-9: 250.60 ICD-10: E11.43 Active 03/19/2016 Unknown Type 2 diabetes anne itus with hyperglycemia ICD-9: 250.02 ICD-10: E11.65 Active 10/11/2017 Unknown Paroxysmal atrial fi brillation ICD-9: 427.31 ICD-10: I48.0 Active 06/03/2017 Unknown Paroxysmal tachycard ia, unspecified ICD-9: 427.2 ICD-10: I47.9 Active 05/12/2017 Unknown Cough ICD-9: 786.2 ICD-10: R05 Active 04/15/2017 Unknown Hypothyroidism, unsp ecified ICD-9: 244.9 ICD-10: E03.9 Active 07/16/2015 Unknown Headache ICD-9: 784.0 ICD-10: R51 Active 03/24/2015 Unknown Aortic stenosis ICD-9: 424.1 Active 12/03/2014 Unknown DIABETES TYPE II ICD-9: 250.00 Active 12/03/2014 Unknown ESSENTIAL HYPERTENSION ICD-9: 401.9 Active 08/13/2014 Unknown VACCIN FOR INFLUENZA ICD-9: V04.81 Active 12/03/2014 Unknown Diabetes Unknown Active 08/14/2014 Unknow n Hypertension Unknown Active 08/14/2014 Unknow n Diabetes mellitus ou t of control ICD-9: 250.02 Active 03/2014 Unknown Problems Condition Codes Effectiv e Dates Condition Status Encounter for screen ing mammogram for malignant neoplasm of breast ICD-9: V76.10 ICD-10: Z12.31 06/07/2018 Active Right upper quadrant pain ICD-9: 789.01 ICD-10: R10.11 03/28/2018 Active Essential (primary) hypertension ICD-9: 401.9 ICD-10: I10 08/13/2014 Active Dysuria ICD-9: 788.1 ICD-10: R30.0 04/15/2017 Active Low back pain ICD-9: 724.2 ICD-10: M54.5 08/13/2015 Active Type 2 diabetes anne itus with hyperglycemia ICD-9: 250.00 ICD-10: E11.65 12/03/2014 Active Essential (primary) hypertension ICD-9: 401.1 ICD-10: I10 04/15/2017 Active Generalized anxiety disorder ICD-9: 300.00 ICD-10: F41.1 01/07/2017 Active Major depressive dis order, recurrent, mild ICD-9: 296.31 ICD-10: F33.0 09/14/2016 Active Carpal tunnel syndro me, left upper limb ICD-9: 354.0 ICD-10: G56.02 11/25/2017 Active Encounter for immuni zation ICD-9: V04.81 ICD-10: Z23 12/03/2014 Active 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 ICD-9: 250.60 ICD-10: E11.43 03/19/2016 Active Type 2 diabetes anne itus with hyperglycemia ICD-9: 250.02 ICD-10: E11.65 10/11/2017 Active Paroxysmal atrial fi brillation ICD-9: 427.31 ICD-10: I48.0 06/03/2017 Active Paroxysmal tachycard ia, unspecified ICD-9: 427.2 ICD-10: I47.9 05/12/2017 Active Cough ICD-9: 786.2 ICD-10: R05 04/15/2017 Active Hypothyroidism, unsp ecified ICD-9: 244.9 ICD-10: E03.9 07/16/2015 Active Headache ICD-9: 784.0 ICD-10: R51 03/24/2015 Active Aortic stenosis ICD-9: 424.1 12/03/2014 Active DIABETES TYPE II ICD-9: 250.00 12/03/2014 Active ESSENTIAL HYPERTENSION ICD-9: 401.9 08/13/2014 Active VACCIN FOR INFLUENZA ICD-9: V04.81 12/03/2014 Active Diabetes Unknown 08/14/2014 Active Hypertension Unknown 08/14/2014 Active Diabetes mellitus ou t of control ICD-9: 250.02 08/13/2014 Active Medications Medication Codes Instruc tions Start Date Stop Date Sta tus Fill Instructions metformin 500 mg tablet RxNorm: 386137 TAKE 1 AND 1/2 TABLETS BY MOUTH IN THE M ORNING AND AT NOON AND TAKE 1 TABLET AT BEDTIME 11/10/2018 05/08/2019 Active Generi c For:GLUCOPHAGE 500MG 11/10/2018 2:47:33 PM gabapentin 600 mg ta blet RxNorm: 538659 1 Capsule(s) PO TID 10/05/2018 04/02/2019 Active Basaglar KwikPen U-1 00 Insulin 100 unit/mL (3 mL) subcutaneous RxNorm: 8357617 INJECT 20 UNITS UNDER THE SKIN ONCE DAILY 09/26/2018 02/22/2019 Active Basaglar KwikPen U-1 00 Insulin 100 unit/mL (3 mL) subcutaneous RxNorm: 6591848 INJECT 20 UNITS UNDER THE SKIN ONCE DAILY 05/25/2018 09/25/2018 Inactive digoxin 250 mcg tablet RxNorm: 339783 0.25 MG PO DAILY 05/13/2018 No Stop Date Active Flagyl 500 mg tablet RxNorm: 178715 1 Tablet(s) PO TID 05/05/2018 05/14/2018 Inactive Flagyl 500 mg tablet RxNorm: 633329 1 Tablet(s) PO TID 05/05/2018 05/04/2018 Inactive Zetia 10 mg tablet RxNorm: 962396 1 Tablet(s) PO daily 03/28/2018 03/22/2019 Active tramadol 50 mg tablet RxNorm: 409680 1 Tablet(s) PO TID as needed 03/25/2018 No Stop Date Active fluticasone 50 mcg/a ctuation nasal spray,suspension RxNorm: 7265575 INSTILL ONE SPRAY IN EACH NOSTRILTWICE A DAY 03/16/2018 10/11/2018 Inactive Generic For:FLONASE SPR 0.05% 03/16/2018 8:50:59 AM Keflex 500 mg capsule RxNorm: 796005 1 Capsule(s) PO TID 02/11/2018 02/10/2018 Inactive Keflex 500 mg capsule RxNorm: 171380 1 Capsule(s) PO TID 02/11/2018 02/20/2018 Inactive metoprolol succinate ER 200 mg tablet,extended release 24 hr RxNorm: 797451 1 Tablet(s) PO daily 01/27/2018 No Stop Date Active Eliquis 2.5 mg tablet RxNorm: 6781660 1 Tablet(s) PO BID 01/27/2018 No Stop Date Active digoxin 125 mcg tablet RxNorm: 158355 1 Tablet(s) PO daily 01/27/2018 No Stop Date Active Basaglar KwikPen U-1 00 Insulin 100 unit/mL (3 mL) subcutaneous RxNorm: 8521563 20 Unit(s) SQ daily 11/25/2017 05/23/2018 Inactive UPDATE RX metformin 500 mg tablet RxNorm: 131586 1 Tablet(s) PO UD 1.5 in morning, noon a nd 1 at bedtime 10/28/2017 10/22/2018 Inactive Basaglar KwikPen U-1 00 Insulin 100 unit/mL (3 mL) subcutaneous RxNorm: 9919677 18 Unit(s) SQ daily 10/26/2017 11/24/2017 Inactive UPDATE RX levothyroxine 50 mcg tablet RxNorm: 153764 TAKE 1 TABLET BY MOUT H ONCE DAILY 10/15/2017 06/11/2018 In active Generic For:SYNTHROID 50MCG TAB 018 9:59:00 AM escitalopram 10 mg t ablet RxNorm: 401728 1 Tablet(s) PO QPM 09/22/2017 09/16/2018 Inactive Generic For:LEXAPRO 5MG 01/07/2017 9:05 :43 AM Basaglar KwikPen U-1 00 Insulin 100 unit/mL (3 mL) subcutaneous RxNorm: 9636538 15 Unit(s) SQ daily 09/22/2017 10/25/2017 Inactive potassium chloride E R 20 mEq tablet,extended release RxNorm: 152879 1 Tablet(s) PO daily 06/22/2017 01/17/2018 Inactive Lantus Solostar U-10 0 Insulin 100 unit/mL (3 mL) subcutaneous pen RxNorm: 458497 10 Unit(s) SQ daily 06/08/2017 06/08/2017 Inactive Basaglar KwikPen U-1 00 Insulin 100 unit/mL (3 mL) subcutaneous RxNorm: 2934322 10 Unit(s) SQ daily 06/08/2017 06/07/2017 Inactive Basaglar KwikPen U-1 00 Insulin 100 unit/mL (3 mL) subcutaneous RxNorm: 7704525 10 Unit(s) SQ daily 06/08/2017 09/21/2017 Inactive Lexapro 5 mg tablet RxNorm: 131738 1 Tablet(s) PO daily 06/01/2017 11/27/2017 Inactive Lexapro 5 mg tablet RxNorm: 657556 1 Tablet(s) PO daily 05/12/2017 05/31/2017 Inactive bisoprolol 5 mg-hydr ochlorothiazide 6.25 mg tablet RxNorm: 290137 1 Tablet(s) PO BID 05/04/2017 06/02/2017 Inactive Keflex 500 mg capsule RxNorm: 300060 1 Capsule(s) PO QID 04/15/2017 04/21/2017 Inactive Lantus Solostar 100 unit/mL (3 mL) subcutaneous insulin pen RxNorm: 159556 10 Unit(s) SQ daily 02/03/2017 06/07/2017 Inactive levothyroxine 50 mcg tablet RxNorm: 294103 TAKE 1 TABLET BY MOUT H ONCE DAILY 02/01/2017 09/28/2017 In active Generic For:SYNTHROID 50MCG TAB 017 9:20:59 AM gabapentin 600 mg ta blet RxNorm: 945733 1 Capsule(s) PO TID 01/27/2017 01/21/2018 Inactive Lexapro 5 mg tablet RxNorm: 059082 TAKE 1 TABLET BY MOUTH AT BEDTIME 01/07/2017 09/21/2017 In active Generic For:LEXAPRO 5MG 01/07/2017 9:05 :43 AM Victoza 2-Dariusz 0.6 mg /0.1 mL (18 mg/3 mL) subcutaneous pen injector RxNorm: 251062 1.8 Milligram(s) SQ daily 12/17/2016 02/07/2017 Inactive Victoza 3-Dariusz 0.6 mg /0.1 mL (18 mg/3 mL) subcutaneous pen injector RxNorm: 106992 Milligram(s) SQ 12/17/2016 02/07/2017 Inactive Zetia 10 mg tablet RxNorm: 841279 1 Tablet(s) PO daily 11/17/2016 11/11/2017 Inactive fluticasone 50 mcg/a ctuation nasal spray,suspension RxNorm: 7116060 Antoine NASAL ONE SPRAY IN EACH NOSTRIL TWICE DAILY 09/28/2016 04/25/2017 Inactive Victoza 2-Dariusz 0.6 mg /0.1 mL (18 mg/3 mL) subcutaneous pen injector RxNorm: 934732 1.2 Milligram(s) SQ daily 09/14/2016 12/16/2016 Inactive Lexapro 5 mg tablet RxNorm: 585154 1 Tablet(s) PO QHS 09/14/2016 12/12/2016 Inactive metformin 500 mg tablet RxNorm: 745993 1 Tablet(s) PO UD 1.5 in morning, noon a nd 1 at bedtime 09/08/2016 09/02/2017 Inactive glimepiride 4 mg tablet RxNorm: 214922 TAKE 1 TABLET BY MOUTH ONCE DAILY 07/31/2016 09/13/2016 In active Generic For:*AMARYL 4MG 07/31/2016 9:02 :38 AM Victoza 2-Dariusz 0.6 mg /0.1 mL (18 mg/3 mL) subcutaneous pen injector RxNorm: 546548 1.2 Milligram(s) SQ daily 05/18/2016 09/13/2016 Inactive Victoza 2-Dariusz 0.6 mg /0.1 mL (18 mg/3 mL) subcutaneous pen injector RxNorm: 648534 1.2 Milligram(s) SQ daily 04/16/2016 05/17/2016 Inactive levothyroxine 50 mcg tablet RxNorm: 909154 TAKE 1 TABLET BY MOUT H ONCE DAILY 04/08/2016 12/03/2016 In active Generic For:SYNTHROID 50MCG TAB 017 9:05:40 AM levothyroxine 50 mcg tablet RxNorm: 601171 1 Tablet(s) PO daily TAKE 1 TABLET BY MOUTH ONCE DAILY 04/08/2016 12/03/2016 Inactive Generic For:SYNTHROID 50MCG TAB N O T I C E PRESCRIPTION PREVIOUSLY AUTHORIZED BY DOCTOR:HENRY BAIG bisoprolol 5 mg-hydr ochlorothiazide 6.25 mg tablet RxNorm: 456014 1 Tablet(s) PO BID 03/23/2016 03/17/2017 Inactive Victoza 2-Dariusz 0.6 mg /0.1 mL (18 mg/3 mL) subcutaneous pen injector RxNorm: 838931 0.6 Milligram(s) SQ daily 03/19/2016 04/15/2016 Inactive Lexapro 5 mg tablet RxNorm: 088135 1 Tablet(s) PO QHS 03/19/2016 06/16/2016 Inactive gabapentin 600 mg ta blet RxNorm: 887886 1 Capsule(s) PO TID 03/19/2016 01/26/2017 Inactive glimepiride 4 mg tablet RxNorm: 132389 1 Tablet(s) PO daily 12/09/2015 06/05/2016 Inactive Victoza 3-Dariusz 0.6 mg /0.1 mL (18 mg/3 mL) subcutaneous pen injector RxNorm: 557197 0.6 Milligram(s) SQ daily x2 weeks, then 1.2 mg SQ daily 12/02/2015 03/18/2016 Inactive metformin 500 mg tablet RxNorm: 214795 1 Tablet(s) PO UD 1.5 in morning, noon a nd 1 at bedtime 08/14/2015 08/07/2016 Inactive gabapentin 600 mg ta blet RxNorm: 917364 1 Capsule(s) PO TID S HE IS ONLY TAKING 1 QD 08/14/2015 03/18/2016 In active fluticasone 50 mcg/a ctuation nasal spray,suspension RxNorm: 201918 Antoine NASAL ONE SPRAY IN EACH NOSTRIL TWICE DAILY 07/26/2015 07/25/2015 Inactive fluticasone 50 mcg/a ctuation nasal spray,suspension RxNorm: 4560540 Antoine NASAL ONE SPRAY IN EACH NOSTRIL TWICE DAILY 07/26/2015 02/20/2016 Inactive bisoprolol 5 mg-hydr ochlorothiazide 6.25 mg tablet RxNorm: 348215 1 Tablet(s) PO daily 1 Tablet(s) PO BID 07/17/2015 01/12/2016 Inactive metformin 500 mg tablet RxNorm: 935366 1 Tablet(s) PO TID 1 Tablet(s) PO TID 07/17/2015 08/13/2015 In active Diflucan 100 mg tablet RxNorm: 740253 1 Tablet(s) PO daily 07/17/2015 07/21/2015 Inactive Zetia 10 mg tablet RxNorm: 756411 1 Tablet(s) PO daily 06/10/2015 06/03/2016 Inactive bisoprolol 5 mg-hydr ochlorothiazide 6.25 mg tablet RxNorm: 443920 1 Tablet(s) PO BID 04/18/2015 07/16/2015 Inactive metformin 500 mg tablet RxNorm: 022164 1 Tablet(s) PO TID 03/01/2015 06/28/2015 Inactive glimepiride 4 mg tablet RxNorm: 975693 1 Tablet(s) PO daily 01/31/2015 01/30/2015 Inactive levothyroxine 50 mcg tablet RxNorm: 616383 TAKE 1 TABLET BY MOUT H ONCE DAILY 01/31/2015 09/27/2015 In active Generic For:SYNTHROID 50MCG TAB N O T I C E PRESCRIPTION PREVIOUSLY AUTHORIZED BY DOCTOR:HENRY BAIG glimepiride 4 mg tablet RxNorm: 167817 1 Tablet(s) PO daily 01/31/2015 07/29/2015 Inactive Invokana 100 mg tablet RxNorm: 4869075 1 Tablet(s) PO daily 12/12/2014 07/16/2015 Inactive bisoprolol 5 mg-hydr ochlorothiazide 6.25 mg tablet RxNorm: 176280 1 Tablet(s) PO BID 08/27/2014 02/22/2015 Inactive metformin 500 mg tablet RxNorm: 481116 1 Tablet(s) PO TID 08/10/2014 12/07/2014 Inactive metformin 500 mg tablet RxNorm: 720097 1 Tablet(s) PO TID 08/10/2014 08/09/2014 Inactive Fish Oil 1,000 mg ca psule RxNorm: 1 Capsule(s) PO daily No Start Date Active Protonix 40 mg table t,delayed release RxNorm: 741655 1 Tablet(s) PO QAM No Start Date Active furosemide 40 mg tablet RxNorm: 916921 1 Tablet(s) PO daily No Start Date Active pen needle, diabetic 31 gauge x 1/6" RxNorm: Miscellaneous N o Start Date Active Elavil 25 mg tablet RxNorm: 657685 1 Tablet(s) PO QPM No Start Date Active nitroglycerin 0.4 mg sublingual tablet RxNorm: 990691 1 Tablet(s) SL as nee ded chest pain No Start Date Active amlodipine 5 mg tablet RxNorm: 801554 1 Tablet(s) PO daily No Start Date Active Entresto 24 mg-26 mg tablet RxNorm: 3793190 1 Tablet(s) PO BID No Start Date Active aspirin 81 mg chewab le tablet RxNorm: 148730 1 Tablet(s) PO daily No Start Date 06/02/2017 Inactive Eliquis 5 mg tablet RxNorm: 9307955 1 Tablet(s) PO BID No Start Date 01/26/2018 Inactive bisoprolol-hydrochlo rothiazide oral RxNorm: [address] art Date 08/26/2014 Inactive levothyroxine 50 mcg tablet RxNorm: 007134 1 Tablet(s) PO daily No Start Date 01/30/2015 Inactive potassium chloride E R 20 mEq tablet,extended release RxNorm: 984446 1 Tablet(s) PO daily No Start Date 06/21/2017 Inactive digoxin 250 mcg tablet RxNorm: 257882 1 Tablet(s) PO daily No Start Date 01/26/2018 Inactive Invokana 100 mg tablet RxNorm: 7296334 1 Tablet(s) PO daily No Start Date 12/11/2014 Inactive tramadol 50 mg tablet RxNorm: 456988 1 Tablet(s) PO TID as needed No Start Date 03/22/2018 Inactive Victoza 3-Dariusz 0.6 mg /0.1 mL (18 mg/3 mL) subcutaneous pen injector RxNorm: 253211 0.6 Milligram(s) SQ daily x2 weeks, then 1.2 mg SQ daily No Start Date 12/01/2015 Inactive Effient 10 mg tablet RxNorm: 717695 1 Tablet(s) PO QAM No Start Date 01/26/2018 Inactive Zetia 10 mg tablet RxNorm: 822168 1 Tablet(s) PO BID No Start Date 03/18/2016 Inactive metoprolol succinate ER 100 mg tablet,extended release 24 hr RxNorm: 317831 1 Tablet(s) PO daily No Start Date 01/26/2018 Inactive gabapentin 300 mg ca psule RxNorm: 381741 1 Capsule(s) PO BID No Start Date 08/13/2015 Inactive Lasix 40 mg tablet RxNorm: 773577 1 Tablet(s) PO BID No Start Date 04/14/2017 Inactive Coreg 3.125 mg tablet RxNorm: 688273 1 Tablet(s) PO BID with meals No Start Date 06/02/2017 Inactive Medication Administered No Medication Administered data Immunizations Vaccine Codes Date Status Influenza CVX: 141 11/25 completed Influenza CVX: 141 12/17 completed Influenza CVX: 141 11/13 completed Influenza CVX: 141 12/04 completed Assessments Condition Codes Effectiv e Dates Encounter for screening mammogram for ma lignant neoplasm of breast ICD-10: Z12.31 ICD-9: V76.10 06/07/2018 Right upper quadrant pain ICD-10: R1 0.11 ICD-9: 789.01 04/28/2018 Essential (primary) hypertension ICD -10: I10 ICD-9: 401.9 03/28/2018 Type 2 diabetes mellitus with hyperglycemia ICD-10: E11.65 ICD-9: 250.00 02/24/2018 Dysuria ICD-10: R30.0 ICD-9: 788.1 02/24/2018 Low back pain ICD-10: M54.5 ICD-9: 724.2 02/24/2018 Essential (primary) hypertension ICD -10: I10 ICD-9: 401.1 01/27/2018 Generalized anxiety disorder ICD-10: F41.1 ICD-9: 300.00 01/27/2018 Major depressive disorder, recurrent, 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 ICD-9: 296.31 01/27/2018 Carpal tunnel syndrome, left upper limb ICD-10: G56.02 ICD-9: 354.0 11/25/2017 Encounter for immunization ICD-10: Z 23 ICD-9: V04.81 11/25/2017 Type 2 diabetes mellitus with hyperglycemia ICD-10: E11.65 ICD-9: 250.02 10/11/2017 Type 2 diabetes mellitus with diabetic a utonomic (poly)neuropathy ICD-10: E11.43 ICD-9: 250.60 09/22/2017 Paroxysmal atrial fibrillation ICD-1 0: I48.0 ICD-9: 427.31 07/06/2017 Paroxysmal tachycardia, unspecified ICD-10: I47.9 ICD-9: 427.2 05/12/2017 Major depressive disorder, recurrent, moderate ICD-10: F33.1 ICD-9: 296.32 05/12/2017 Cough ICD-10: R05 ICD-9: 786.2 04/15/2017 Hypothyroidism, unspecified ICD-10: E03.9 ICD-9: 244.9 07/17/2015 Headache ICD-10: R51 ICD-9: 784.0 03/25/2015 ESSENTIAL HYPERTENSION ICD-9: 401.9 12/04/2014 Aortic stenosis ICD-9: 424.1 12/04/2014 DIABETES TYPE II ICD-9: 250.00 12/04/2014 VACCIN FOR INFLUENZA ICD-9: V04.81 12/04/2014 Diabetes mellitus out of control ICD -9: 250.02 08/14/2014 Reason For Visit Reason For Visit Effective Dates Notes abdominal pain 04/27/2018 abdominal pain 03/28/2018 diabetes mellitus 02/24/2018 diabetes mellitus 01/27/2018 diabetes mellitus 11/25/2017 diabetes mellitus 10/26/2017 diabetes mellitus 10/11/2017 diabetes mellitus 09/22/2017 Hospital Follow Up 07/06/2017 Hospital Follow Up 06/03/2017 arrhythmia 05/12/2017 Hospital Follow Up 04/15/2017 stress test and then shipped to [facility] Follow Up 03/19/2017 stress test and then shipped to [place] diabetes mellitus 02/03/2017 headache 01/07/2017 diabetes mellitus 12/17/2016 diabetes mellitus 09/14/2016 diabetes mellitus 06/18/2016 medication follow up 04/16/2016 back pain 03/19/2016 back pain 11/14/2015 back pain 08/14/2015 diabetes mellitus 07/17/2015 Hospital Follow Up 03/25/2015 diabetes mellitus 12/04/2014 diabetes mellitus 08/14/2014 Results Observation Observation Code Item Item Code Result Date Human Epididymis Protein 4 786333 HE4 97.4 PMOL/L 06/06/2018 Cancer Antigen (CA) 125 492595 CANCER ANTIGEN (CA) 125 13.0 U/ML 06/06/2018 Culture Urine [id number] URI NE CULTURE SEE NOTES 02/28/2018 Urine Culture Ucult Comp lete Growth of aerobe sent to ref lab [...] 28.8 pg 02/24/2018 Cbc With Differential Ord2 [place]% 5.7 % 02/24/2018 Cbc With Differential Ord2 [...] 1.57 K/ul 02/24/2018 Cbc With Differential Ord2 [place] ABS# 0.4 K/ul 02/24/2018 Cbc With Differential Ord2 Eos ABS# 0.1 K/ul 02/24/2018 Cbc With Differential Ord2 Baso ABS# 0.0 K/ul 02/24/2018 Comp Metabolic Ldb662 NA 138 mEq/L 02/24/2018 Comp Metabolic Reu818 K 4.4 mEq/L 02/24/2018 Comp Metabolic Ezb123 CL 100 mEq/L 02/24/2018 Comp Metabolic Gbh591 CO2 27.0 mEq/L 02/24/2018 Comp Metabolic Kwy976 AN ION GAP 15 02/24/2018 Comp Metabolic Ous745 GL UCOSE 98 mg/dL 02/24/2018 Comp Metabolic Jnc027 Cr eat 1.0 mg/dL 02/24/2018 Comp Metabolic Ydz578 eG FR 55 ml/min/1.73m2 02/24 Comp Metabolic Iqc753 BUN 25 mg/dL 02/24/2018 Comp Metabolic Qdu446 B/ C Ratio 24.3 Ratio 02/24/2018 Comp Metabolic Psu457 CA LCIUM 9.4 mg/dL 02/24/2018 Comp Metabolic Ocp789 AL K PHOS 46 U/L 02/24/2018 Comp Metabolic Yxg814 T(SGOT) 13 U/L 02/24/2018 Comp Metabolic Mbu824 AL T(SGPT) 12 U/L 02/24/2018 Comp Metabolic Sxk284 BI LI T 0.4 mg/dL 02/24/2018 Comp Metabolic Rlr316 AL BUMIN 4.5 g/dL 02/24/2018 Comp Metabolic Rqj434 TP RO 6.6 g/dL 02/24/2018 Comp Metabolic Zbl773 GL OB 2.1 g/dL 02/24/2018 Comp Metabolic Tmu691 A/ G Ratio 2.1 Ratio 02/24/2018 Comp Metabolic Zom875 Os mo 280 mOsmo 02/24/2018 Culture Urine [id number] URI NE CULTURE SEE NOTES 02/11/2018 Culture Urine [id number] Con tinued Results 02/11/2018 Urine Culture Ucult Comp lete >100,000 col/ml aerobic grow th sent to ref lab 02/08/2018 %Hba1C Zgd066 % HbA1c 88949-2 6.8 % 01/12/2018 %Hba1C Ipi124 Gluc Ave 148 mg/dL 01/12/2018 Metabolic Ord15 [...] 31.7 % 01/11/2018 Cbc With Differential Ord2 MCH 28.6 pg 01/11/2018 Cbc With Differential Ord2 [place]% 7.8 % 01/11/2018 Cbc With Differential Ord2 [...] 1.70 K/ul 01/11/2018 Cbc With Differential Ord2 [place] ABS# 0.4 K/ul 01/11/2018 Cbc With Differential Ord2 Eos ABS# 0.1 K/ul 01/11/2018 Cbc With Differential Ord2 Baso ABS# 0.0 K/ul 01/11/2018 Magnesium Ord90 Mag 1.7 mg/dL 01/11/2018 Test(s) Not Perfromed [id number] Test(s) Not Performed Test(s) Not Performed. See Below: 09/20/2017 Test(s) Not Perfromed [id number] TEST NAME BNP 09/20/2017 Test(s) Not Perfromed [id number] Rejection Reason Patient Refused due to lack of coving diganosis 09/20/2017 Test(s) Not Perfromed [id number] COMMENT Dorita Notified 11/2017 Test(s) Not Perfromed ZVL8455 Sterile Process Tech Miguel Mclaughlin 09/20/2017 B Type Natriuretic Peptide Vap1458 B-LASTER HAND 889.00 pg/ml 8 Cbc With Differential Ord2 WBC 5.72 K/ul [...] 28.9 pg 09/20/2017 Cbc With Differential Ord2 [place]% 5.6 % 09/20/2017 Cbc With Differential Ord2 [...] 1.68 K/ul 09/20/2017 Cbc With Differential Ord2 [place] ABS# 0.3 K/ul 09/20/2017 Cbc With Differential Ord2 Eos ABS# 0.1 K/ul 09/20/2017 Cbc With Differential Ord2 Baso ABS# 0.0 K/ul 09/20/2017 %Hba1C Fje511 % HbA1c 64423-3 7.9 % 09/20/2017 %Hba1C Usd520 Gluc Ave 180 mg/dL 09/20/2017 Magnesium Ord90 [...] 28.3 pg 07/07/2017 Cbc With Differential Ord2 [place]% 7.9 % 07/07/2017 Cbc With Differential Ord2 MCHC [...] 1.34 K/ul 07/07/2017 Cbc With Differential Ord2 [place] ABS# 0.4 K/ul 07/07/2017 Cbc With Differential Ord2 Eos ABS# 0.1 K/ul 07/07/2017 Cbc With Differential Ord2 Baso ABS# 0.0 K/ul 07/07/2017 Comp Metabolic Dsd340 NA 142 mEq/L 07/07/2017 Comp Metabolic Kwf342 K 4.3 mEq/L 07/07/2017 Comp Metabolic Fgf318 CL 105 mEq/L 07/07/2017 Comp Metabolic Scr487 CO2 28.0 mEq/L 07/07/2017 Comp Metabolic Tgt007 AN ION GAP 13 07/07/2017 Comp Metabolic Uvg350 GL UCOSE 197 mg/dL 07/07/2017 Comp Metabolic Uro629 Cr eat 1.1 mg/dL 07/07/2017 Comp Metabolic Dyi069 eG FR 51 ml/min/1.73m2 07/07 Comp Metabolic Gkx335 BUN 21 mg/dL 07/07/2017 Comp Metabolic Jtp579 B/ C Ratio 18.9 Ratio 07/07/2017 Comp Metabolic Fio263 CA LCIUM 8.9 mg/dL 07/07/2017 Comp Metabolic Yng229 AL K PHOS 51 U/L 07/07/2017 Comp Metabolic Hqw713 T(SGOT) 11 U/L 07/07/2017 Comp Metabolic Vmz572 AL T(SGPT) 11 U/L 07/07/2017 Comp Metabolic Nbn289 BI LI T 0.3 mg/dL 07/07/2017 Comp Metabolic Wck144 AL BUMIN 4.2 g/dL 07/07/2017 Comp Metabolic Ngb204 TP RO 6.0 g/dL 07/07/2017 Comp Metabolic Mph645 GL OB 1.8 g/dL 07/07/2017 Comp Metabolic Pte671 A/ G Ratio 2.3 Ratio 07/07/2017 Comp Metabolic Tkr839 Os mo 292 mOsmo 07/07/2017 Digoxin Ord9 DIGOXIN 1.3 NG/ML 07/07/2017 Tsh Ord6 TSH (3rd IS) 2.19 uIU/mL 07/07/2017 B Type Natriuretic Peptide [id number] B-LASTER HAND 801.00 pg/ml 8 Culture Urine [id number] URI NE CULTURE SEE NOTES 04/19/2017 Culture Urine [id number] Con tinued Results 04/19/2017 Urine Culture Ucult Comp lete >100,000 col/ml aerobic grow th sent to ref lab 04/16/2017 Comp Metabolic Fva109 NA 140 mEq/L 01/26/2017 Comp Metabolic Rai568 K 4.6 mEq/L 01/26/2017 Comp Metabolic Lkz817 CL 102 mEq/L 01/26/2017 Comp Metabolic Vfo103 CO2 28.0 mEq/L 01/26/2017 Comp Metabolic Hgd335 AN ION GAP 15 01/26/2017 Comp Metabolic Phs921 GL UCOSE 173 mg/dL 01/26/2017 Comp Metabolic Csc900 Cr eat 1.0 mg/dL 01/26/2017 Comp Metabolic Uao422 eG FR 56 ml/min/1.73m2 01/26 Comp Metabolic Vto485 BUN 23 mg/dL 01/26/2017 Comp Metabolic Jwu319 B/ C Ratio 22.5 Ratio 01/26/2017 Comp Metabolic Tfb314 CA LCIUM 9.4 mg/dL 01/26/2017 Comp Metabolic Aqs380 AL K PHOS 52 U/L 01/26/2017 Comp Metabolic Meq760 T(SGOT) 12 U/L 01/26/2017 Comp Metabolic Fcq150 AL T(SGPT) 12 U/L 01/26/2017 Comp Metabolic Etc866 BI LI T 0.5 mg/dL 01/26/2017 Comp Metabolic Seh300 AL BUMIN 4.4 g/dL 01/26/2017 Comp Metabolic Qht562 TP RO 6.5 g/dL 01/26/2017 Comp Metabolic Ryu883 GL OB 2.1 g/dL 01/26/2017 Comp Metabolic Msj578 A/ G Ratio 2.1 Ratio 01/26/2017 Comp Metabolic Mop917 Os mo 287 mOsmo 01/26/2017 Cbc With Differential Ord2 [...] 29.2 pg 01/26/2017 Cbc With Differential Ord2 [place]% 4.9 % 01/26/2017 Cbc With Differential Ord2 MCHC 32.9 pg 01/26/2017 Cbc With Differential Ord2 Eos% 1.1 % 01/26/2017 Cbc With Differential Ord2 PLT 345 K/ul 01/26/2017 Cbc With Differential Ord2 Baso% 0.5 % 01/26/2017 Cbc With Differential Ord2 RDW 14.3 % 01/26/2017 Cbc With Differential Ord2 Neut ABS# 5.17 K/ul 01/26/2017 Cbc With Differential Ord2 Lymph ABS# 1.75 K/ul 01/26/2017 Cbc With Differential Ord2 [place] ABS# 0.4 K/ul 01/26/2017 Cbc With Differential Ord2 Eos ABS# 0.1 K/ul 01/26/2017 Cbc With Differential Ord2 Baso ABS# 0.0 K/ul 01/26/2017 %Hba1C Ubh608 % HbA1c 10240-3 7.8 % 01/26/2017 %Hba1C Lqa076 Gluc Ave 177 mg/dL 01/26/2017 Lipid Ord30 CHOL 239 mg/dL 01/26/2017 Lipid Ord30 HDL 40.0 mg/dl 01/26/2017 Lipid Ord30 TRIG 325 mg/dL 01/26/2017 Lipid Ord30 LDL 134 mg/dL 01/26/2017 Lipid Ord30 C/HDL 6.0 Ratio 01/26/2017 Free T4 Tud865 FREE T4 0.95 ng/dL 01/26/2017 Tsh Ord6 [...] Metabolic Ord15 CALCIUM 9.0 mg/dL 09/08/2016 %Hba1C Twa546 % HbA1c 44516-5 7.5 % 09/08/2016 %Hba1C Wqd856 Gluc Ave 169 mg/dL 09/08/2016 Tsh Ord6 hTSH II 2.64 uIU/mL 03/13/2016 %Hba1C Fbi098 % HbA1c 37370-7 8.2 % 03/13/2016 %Hba1C Snt643 Gluc Ave 189 mg/dL 03/13/2016 Lipid Ord30 CHOL 233 mg/dL 03/13/2016 Lipid Ord30 HDL 46.0 mg/dl 03/13/2016 Lipid Ord30 TRIG 276 mg/dL 03/13/2016 Lipid Ord30 LDL 132 mg/dL 03/13/2016 Lipid Ord30 C/HDL 5.1 Ratio 03/13/2016 Free T4 Sby457 FREE T4 0.94 ng/dL 03/13/2016 Cbc With [...] 29.5 % 03/13/2016 Cbc With Differential Ord2 MCH 30.3 pg 03/13/2016 Cbc With Differential Ord2 [place]% 6.1 % 03/13/2016 Cbc With Differential Ord2 [...] 1.63 K/ul 03/13/2016 Cbc With Differential Ord2 [place] ABS# 0.3 K/ul 03/13/2016 Cbc With Differential Ord2 Eos ABS# 0.1 K/ul 03/13/2016 Cbc With Differential Ord2 Baso ABS# 0.0 K/ul 03/13/2016 Comp Metabolic Xbc313 NA 139 mEq/L 03/13/2016 Comp Metabolic Div859 K 4.3 mEq/L 03/13/2016 Comp Metabolic Ydg174 CL 103 mEq/L 03/13/2016 Comp Metabolic Tka661 CO2 28.0 mEq/L 03/13/2016 Comp Metabolic Wei727 AN ION GAP 12 03/13/2016 Comp Metabolic Fdp919 GL UCOSE 200 mg/dL 03/13/2016 Comp Metabolic Mvq991 Cr eat 0.9 mg/dL 03/13/2016 Comp Metabolic Mhl842 eG FR 69 ml/min/1.73m2 03/13 Comp Metabolic Clu796 BUN 19 mg/dL 03/13/2016 Comp Metabolic Mnk711 B/ C Ratio 22.4 Ratio 03/13/2016 Comp Metabolic Ujv381 CA LCIUM 9.0 mg/dL 03/13/2016 Comp Metabolic Afz543 AL K PHOS 57 U/L 03/13/2016 Comp Metabolic Ffc887 T(SGOT) 13 U/L 03/13/2016 Comp Metabolic Jel225 AL T(SGPT) 16 U/L 03/13/2016 Comp Metabolic Qpj222 BI LI T 0.4 mg/dL 03/13/2016 Comp Metabolic Dgt073 AL BUMIN 4.2 g/dL 03/13/2016 Comp Metabolic Eoc242 TP RO 6.3 g/dL 03/13/2016 Comp Metabolic Yto312 GL OB 2.1 g/dL 03/13/2016 Comp Metabolic Ewp886 A/ G Ratio 2.0 Ratio 03/13/2016 Comp Metabolic Dtl555 Os mo 285 mOsmo 03/13/2016 %Hba1C Wmf958 % HbA1c 83452-7 8.3 % 11/14/2015 %Hba1C Pth010 Gluc Ave 192 mg/dL 11/14/2015 Lipid Ord30 CHOL 210 mg/dL 07/19/2015 Lipid Ord30 HDL 43.0 mg/dl 07/19/2015 Lipid Ord30 TRIG 311 mg/dL 07/19/2015 Lipid Ord30 LDL 105 mg/dL 07/19/2015 Lipid Ord30 C/HDL 4.9 Ratio 07/19/2015 %Hba1C Wsd346 % HbA1c 78481-0 7.6 % 07/19/2015 %Hba1C Pvb283 Gluc Ave 171 mg/dL 07/19/2015 Cbc With [...] 28.8 pg 07/19/2015 Cbc With Differential Ord2 [place]% 6.1 % 07/19/2015 Cbc With Differential Ord2 [...] 1.63 K/ul 07/19/2015 Cbc With Differential Ord2 [place] ABS# 0.3 K/ul 07/19/2015 Cbc With Differential Ord2 Eos ABS# 0.1 K/ul 07/19/2015 Cbc With Differential Ord2 Baso ABS# 0.0 K/ul 07/19/2015 Cbc With Differential Ord2 New Analyzer Notice Please note new ref ranges s tarting 03-27-2015 due to implemntation of new five part differential hematolgy analyzer. 07/19/2015 Comp Metabolic Bhm716 NA 138 mEq/L 07/19/2015 Comp Metabolic Hta870 K 4.3 mEq/L 07/19/2015 Comp Metabolic Qgb923 CL 100 mEq/L 07/19/2015 Comp Metabolic Eyr720 CO2 33.0 mEq/L 07/19/2015 Comp Metabolic Eqb219 AN ION GAP 9 07/19/2015 Comp Metabolic Vfx782 GL UCOSE 149 mg/dL 07/19/2015 Comp Metabolic Upb532 Cr eat 0.9 mg/dL 07/19/2015 Comp Metabolic Evw573 eG FR 62 ml/min/1.73m2 07/18 Comp Metabolic Due321 BUN 19 mg/dL 07/19/2015 Comp Metabolic Rzv208 B/ C Ratio 20.2 Ratio 07/19/2015 Comp Metabolic Moh709 CA LCIUM 9.5 mg/dL 07/19/2015 Comp Metabolic Qal764 AL K PHOS 52 U/L 07/19/2015 Comp Metabolic Mpe861 T(SGOT) 15 U/L 07/19/2015 Comp Metabolic Wuy373 AL T(SGPT) 14 U/L 07/19/2015 Comp Metabolic Yqh550 BI LI T 0.5 mg/dL 07/19/2015 Comp Metabolic Hug108 AL BUMIN 4.4 g/dL 07/19/2015 Comp Metabolic Kxf598 TP RO 6.4 g/dL 07/19/2015 Comp Metabolic Xfv202 GL OB 2.0 g/dL 07/19/2015 Comp Metabolic Uch701 A/ G Ratio 2.2 Ratio 07/19/2015 Comp Metabolic Jln491 Os mo 281 mOsmo 07/19/2015 Free T4 Ufa216 FREE T4 0.92 ng/dL 07/19/2015 Tsh Ord6 hTSH II 1.95 uIU/mL 07/19/2015 Microalbumin Irx969 Micr oAlb 0.4 mg/dL 07/19/2015 Comp Metabolic Ifj962 NA 137 mEq/L 12/04/2014 Comp Metabolic Rlq232 K 4.0 mEq/L 12/04/2014 Comp Metabolic Mrc778 CL 100 mEq/L 12/04/2014 Comp Metabolic Cbx801 CO2 29.0 mEq/L 12/04/2014 Comp Metabolic Sdm394 AN ION GAP 12 12/04/2014 Comp Metabolic Lek844 GL UCOSE 171 mg/dL 12/04/2014 Comp Metabolic Trl752 Cr eat 1.0 mg/dL 12/04/2014 Comp Metabolic Slw550 eG FR 60 ml/min/1.73m2 12/04 Comp Metabolic Aiz498 BUN 25 mg/dL 12/04/2014 Comp Metabolic Ptf759 B/ C Ratio 25.8 Ratio 12/04/2014 Comp Metabolic Ssb835 CA LCIUM 9.4 mg/dL 12/04/2014 Comp Metabolic Egc061 AL K PHOS 60 U/L 12/04/2014 Comp Metabolic Iwc840 T(SGOT) 13 U/L 12/04/2014 Comp Metabolic Waz267 AL T(SGPT) 17 U/L 12/04/2014 Comp Metabolic Fmh046 BI LI T 0.4 mg/dL 12/04/2014 Comp Metabolic Yyb748 AL BUMIN 4.4 g/dL 12/04/2014 Comp Metabolic Nqs328 TP RO 6.9 g/dL 12/04/2014 Comp Metabolic Mhx032 GL OB 2.5 g/dL 12/04/2014 Comp Metabolic Kjq544 A/ G Ratio 1.8 Ratio 12/04/2014 Comp Metabolic Eat227 Os mo 282 mOsmo 12/04/2014 Tsh Ord6 hTSH II 1.78 uIU/mL 12/04/2014 %Hba1C Jxf409 % HbA1c 25013-1 8.3 % 12/04/2014 %Hba1C Ken343 Gluc Ave 192 mg/dL 12/04/2014 Free T4 Ycl102 FREE T4 0.85 ng/dL 12/04/2014 Lipid Ord30 [...] Result Effective Dates Constitutional No recent illness 04/27/2018 Constitutional No chills 04/27/2018 Constitutional No diaphoresis 04/27/2018 Constitutional fatigue 0 04/27/2018 Constitutional No fever 04/27/2018 Constitutional insomnia 04/27/2018 Constitutional No malaise 04/27/2018 Eyes No eye discharge Eyes No eye erythema Eyes No eye pain 019 Cardiovascular No chest pain/pressure 04/27/2018 Cardiovascular No edema 04/27/2018 Gastrointestinal abdominal pain 04/27/2018 Gastrointestinal constipation 04/27/2018 Gastrointestinal No diarrhea 04/27/2018 Gastrointestinal gas and bloating 04/27/2018 Gastrointestinal No nausea 04/27/2018 Gastrointestinal No vomiting 04/27/2018 Musculoskeletal back pain 04/27/2018 Musculoskeletal No joint complaint 04/27/2018 Dermatologic No rash Dermatologic No sores Neurologic No alteration of consciousness 04/27/2018 Psychiatric anxiety 04/15 Ears/Nose/Throat/Neck No nasal discharge 04/27/2018 Respiratory No cough Respiratory No chest congestion 04/27/2018 Genitourinary/Nephrology No dysuria 04/27/2018 Neurologic No mental status change 04/27/2018 Psychiatric No depression 04/27/2018 Psychiatric No suicidality 04/27/2018 Constitutional No recent illness 03/28/2018 Constitutional No anorexia 03/28/2018 Constitutional No night sweats 03/28/2018 Constitutional No chills 03/28/2018 Constitutional No diaphoresis 03/28/2018 Constitutional fatigue 0 03/28/2018 Constitutional No fever 03/28/2018 Constitutional insomnia 03/28/2018 Constitutional No malaise 03/28/2018 Eyes No eye discharge Eyes No eye erythema Eyes No eye pain 019 Ears/Nose/Throat/Neck No dizziness 03/28/2018 Ears/Nose/Throat/Neck No dysphagia 03/28/2018 Ears/Nose/Throat/Neck No facial pain 03/28/2018 Ears/Nose/Throat/Neck No headache 03/28/2018 Ears/Nose/Throat/Neck No hearing loss 03/28/2018 Ears/Nose/Throat/Neck No nasal discharge 03/28/2018 Ears/Nose/Throat/Neck No otalgia 03/28/2018 Cardiovascular No chest pain/pressure 03/28/2018 Cardiovascular No edema 03/28/2018 Cardiovascular No palpitations 03/28/2018 Respiratory No productive sputum 03/28/2018 Respiratory No wheezing 03/28/2018 Gastrointestinal No abdominal pain 03/28/2018 Gastrointestinal constipation 03/28/2018 Gastrointestinal No diarrhea 03/28/2018 Gastrointestinal gas and bloating 03/28/2018 Gastrointestinal No nausea 03/28/2018 Gastrointestinal No vomiting 03/28/2018 Genitourinary/Nephrology No dysuria 03/28/2018 Genitourinary/Nephrology urinary frequency 03/28/2018 Musculoskeletal back pain 03/28/2018 Musculoskeletal No joint complaint 03/28/2018 Dermatologic No rash Dermatologic No sores Neurologic No alteration of consciousness 03/28/2018 Psychiatric No confusion 03/28/2018 Psychiatric anxiety 03/15 Endocrine diabetes mellitus type 2 03/28/2018 Constitutional No recent illness 02/24/2018 Constitutional No anorexia 02/24/2018 Constitutional No night sweats 02/24/2018 Constitutional No chills 02/24/2018 Constitutional No diaphoresis 02/24/2018 Constitutional fatigue 1 04/27/2017 Constitutional No fever 02/24/2018 Constitutional insomnia 02/24/2018 Constitutional No malaise 02/24/2018 Constitutional No weight loss 02/24/2018 Constitutional No weight gain 02/24/2018 Eyes No eye erythema Eyes No eye discharge Ears/Nose/Throat/Neck No dizziness 02/24/2018 Ears/Nose/Throat/Neck No headache 02/24/2018 Cardiovascular No chest pain/pressure 02/24/2018 Gastrointestinal No abdominal pain 02/24/2018 Gastrointestinal constipation 02/24/2018 Gastrointestinal No diarrhea 02/24/2018 Gastrointestinal gas and bloating 02/24/2018 Gastrointestinal No vomiting 02/24/2018 Gastrointestinal No nausea 02/24/2018 Genitourinary/Nephrology No dysuria 02/24/2018 Genitourinary/Nephrology urinary frequency 02/24/2018 Musculoskeletal back pain 02/24/2018 Dermatologic No rash Dermatologic No sores Neurologic No alteration of consciousness 02/24/2018 Psychiatric anxiety 02/12 Endocrine diabetes mellitus type 2 02/24/2018 Eyes No eye pain 018 Ears/Nose/Throat/Neck No dysphagia 02/24/2018 Ears/Nose/Throat/Neck No facial pain 02/24/2018 Ears/Nose/Throat/Neck No hearing loss 02/24/2018 Ears/Nose/Throat/Neck No nasal discharge 02/24/2018 Ears/Nose/Throat/Neck No otalgia 02/24/2018 Cardiovascular No edema 02/24/2018 Cardiovascular No palpitations 02/24/2018 Respiratory No productive sputum 02/24/2018 Respiratory No wheezing 02/24/2018 Musculoskeletal No joint complaint 02/24/2018 Psychiatric No confusion 02/24/2018 Constitutional No fever 01/27/2018 Constitutional No malaise 01/27/2018 Eyes No eye pain 018 Eyes No eye erythema Eyes No eye discharge Ears/Nose/Throat/Neck No dysphagia 01/27/2018 Ears/Nose/Throat/Neck No facial pain 01/27/2018 Ears/Nose/Throat/Neck No headache 01/27/2018 Ears/Nose/Throat/Neck No hearing loss 01/27/2018 Ears/Nose/Throat/Neck No nasal discharge 01/27/2018 Ears/Nose/Throat/Neck No otalgia 01/27/2018 Cardiovascular No edema 01/27/2018 Cardiovascular No chest pain/pressure 01/27/2018 Cardiovascular No palpitations 01/27/2018 Respiratory No productive sputum 01/27/2018 Respiratory No wheezing 01/27/2018 Gastrointestinal No abdominal pain 01/27/2018 Gastrointestinal No vomiting 01/27/2018 Gastrointestinal No nausea 01/27/2018 Constitutional No recent illness 01/27/2018 Constitutional No anorexia 01/27/2018 Constitutional No night sweats 01/27/2018 Constitutional No chills 01/27/2018 Constitutional No diaphoresis 01/27/2018 Constitutional No fatigue 01/27/2018 Constitutional No insomnia 01/27/2018 Constitutional No weight loss 01/27/2018 Constitutional No weight gain 01/27/2018 Respiratory cough 2017 Genitourinary/Nephrology No dysuria 01/27/2018 Musculoskeletal No joint complaint 01/27/2018 Dermatologic No rash Neurologic No alteration of consciousness 01/27/2018 Psychiatric No confusion 01/27/2018 Constitutional No recent illness 11/25/2017 Constitutional No chills 11/25/2017 Constitutional No diaphoresis 11/25/2017 Constitutional No fever 11/25/2017 Eyes No blindness 2017 Ears/Nose/Throat/Neck No nasal discharge 11/25/2017 Cardiovascular No chest pain/pressure 11/25/2017 Cardiovascular No dyspnea 11/25/2017 Cardiovascular No palpitations 11/25/2017 Respiratory No chest tightness 11/25/2017 Respiratory No cough Gastrointestinal No abdominal pain 11/25/2017 Gastrointestinal No constipation 11/25/2017 Genitourinary/Nephrology No urinary urgenc y 11/25/2017 Genitourinary/Nephrology No urinary frequency 11/25/2017 Dermatologic No rash Neurologic No alteration of consciousness 11/25/2017 Neurologic No mental status change 11/25/2017 Psychiatric anxiety 11/13 Endocrine diabetes mellitus type 2 11/25/2017 Constitutional No anorexia 11/25/2017 Constitutional No night sweats 11/25/2017 Cardiovascular No edema 11/25/2017 Musculoskeletal carpal tunnel syndrome 11/25/2017 Constitutional No recent illness 10/26/2017 Constitutional No chills 10/26/2017 Constitutional No diaphoresis 10/26/2017 Constitutional No fever 10/26/2017 Eyes No blindness 2017 Ears/Nose/Throat/Neck No nasal discharge 10/26/2017 Cardiovascular No chest pain/pressure 10/26/2017 Cardiovascular dyspnea 0 10/26/2017 Cardiovascular palpitations 10/26/2017 Respiratory No chest tightness 10/26/2017 Respiratory No cough Gastrointestinal No abdominal pain 10/26/2017 Gastrointestinal No constipation 10/26/2017 Genitourinary/Nephrology No urinary urgenc y 10/26/2017 Genitourinary/Nephrology No urinary frequency 10/26/2017 Dermatologic No rash Neurologic No alteration of consciousness 10/26/2017 Neurologic No mental status change 10/26/2017 Endocrine diabetes mellitus type 2 10/26/2017 Psychiatric anxiety 10/13 Constitutional No recent illness 10/11/2017 Constitutional No recent illness 09/22/2017 Constitutional No chills 09/22/2017 Constitutional No diaphoresis 09/22/2017 Constitutional No fever 09/22/2017 Eyes No blindness 2017 Ears/Nose/Throat/Neck No nasal discharge 09/22/2017 Cardiovascular No chest pain/pressure 09/22/2017 Cardiovascular dyspnea 0 09/22/2017 Cardiovascular palpitations 09/22/2017 Gastrointestinal No abdominal pain 09/22/2017 Gastrointestinal No constipation 09/22/2017 Genitourinary/Nephrology No urinary urgenc y 09/22/2017 Genitourinary/Nephrology No urinary frequency 09/22/2017 Dermatologic No rash 01/2018 Neurologic No alteration of consciousness 09/22/2017 Neurologic No mental status change 09/22/2017 Respiratory No cough 01/2018 Respiratory No chest tightness 09/22/2017 Endocrine diabetes mellitus type 2 09/22/2017 Constitutional No recent illness 07/06/2017 Constitutional No chills 07/06/2017 Constitutional No diaphoresis 07/06/2017 Constitutional No fever 07/06/2017 Eyes No blindness 2017 Ears/Nose/Throat/Neck No nasal discharge 07/06/2017 Cardiovascular No chest pain/pressure 07/06/2017 Cardiovascular dyspnea 0 07/06/2017 Cardiovascular fatigue 0 07/06/2017 Cardiovascular palpitations 07/06/2017 Respiratory cough 2017 Respiratory dyspnea on exertion 07/06/2017 Gastrointestinal No abdominal pain 07/06/2017 Gastrointestinal No constipation 07/06/2017 Dermatologic No rash Neurologic No alteration of consciousness 07/06/2017 Neurologic No mental status change 07/06/2017 Genitourinary/Nephrology No urinary frequency 07/06/2017 Genitourinary/Nephrology No urinary urgenc y 07/06/2017 Constitutional No recent illness 06/03/2017 Constitutional No chills 06/03/2017 Constitutional No diaphoresis 06/03/2017 Constitutional No fever 06/03/2017 Eyes No blindness 2017 Ears/Nose/Throat/Neck No nasal discharge 06/03/2017 Cardiovascular No chest pain/pressure 06/03/2017 Cardiovascular No dyspnea 06/03/2017 Cardiovascular fatigue 0 06/03/2017 Cardiovascular palpitations 06/03/2017 Respiratory cough 2017 Respiratory dyspnea on exertion 06/03/2017 Gastrointestinal No abdominal pain 06/03/2017 Dermatologic No rash Neurologic No alteration of consciousness 06/03/2017 Neurologic No mental status change 06/03/2017 Gastrointestinal No constipation 06/03/2017 Gastrointestinal diarrhea 06/03/2017 Genitourinary/Nephrology urinary frequency 06/03/2017 Constitutional No recent illness 05/12/2017 Constitutional No chills 05/12/2017 Constitutional No diaphoresis 05/12/2017 Constitutional No fever 05/12/2017 Eyes No eye erythema Ears/Nose/Throat/Neck No nasal discharge 05/12/2017 Cardiovascular No chest pain/pressure 05/12/2017 Cardiovascular No dyspnea 05/12/2017 Cardiovascular palpitations 05/12/2017 Cardiovascular fatigue 0 05/12/2017 Respiratory No cough Respiratory dyspnea on exertion 05/12/2017 Gastrointestinal No abdominal pain 05/12/2017 Neurologic No alteration of consciousness 05/12/2017 Neurologic No mental status change 05/12/2017 Dermatologic No rash Constitutional No recent illness 04/15/2017 Constitutional No chills 04/15/2017 Constitutional No diaphoresis 04/15/2017 Constitutional fatigue 0 04/15/2017 Constitutional No fever 04/15/2017 Constitutional malaise 0 04/15/2017 Eyes No blindness 2017 Ears/Nose/Throat/Neck headache 04/15/2017 Ears/Nose/Throat/Neck nasal allergies 04/15/2017 Ears/Nose/Throat/Neck No nasal discharge 04/15/2017 Cardiovascular No chest pain/pressure 04/15/2017 Cardiovascular exercise intolerance 04/15/2017 Cardiovascular fatigue 0 04/15/2017 Respiratory No chest congestion 04/15/2017 Respiratory cough 2017 Respiratory No dyspnea 0 04/15/2017 Gastrointestinal No abdominal pain 04/15/2017 Gastrointestinal No constipation 04/15/2017 Gastrointestinal No diarrhea 04/15/2017 Gastrointestinal nausea 04/15/2017 Gastrointestinal No vomiting 04/15/2017 Genitourinary/Nephrology No dysuria 04/15/2017 Genitourinary/Nephrology No nocturia 04/15/2017 Genitourinary/Nephrology No urinary incontinence 04/15/2017 Musculoskeletal No stiffness 04/15/2017 Musculoskeletal No swelling 04/15/2017 Musculoskeletal No muscle weakness 04/15/2017 Musculoskeletal No myalgias 04/15/2017 Dermatologic No rash 03/2017 Neurologic No alteration of consciousness 04/15/2017 Neurologic No mental status change 04/15/2017 Psychiatric anxiety 02/03/2017 Psychiatric depression 0 04/15/2017 Constitutional recent illness 03/19/2017 Constitutional No chills 03/19/2017 Constitutional No diaphoresis 03/19/2017 Constitutional fatigue 0 03/19/2017 Constitutional No fever 03/19/2017 Constitutional malaise 0 03/19/2017 Eyes No blindness 2017 Ears/Nose/Throat/Neck headache 03/19/2017 Ears/Nose/Throat/Neck nasal allergies 03/19/2017 Ears/Nose/Throat/Neck No nasal discharge 03/19/2017 Cardiovascular No chest pain/pressure 03/19/2017 Cardiovascular palpitations 03/19/2017 Respiratory No chest congestion 03/19/2017 Respiratory cough 2017 Respiratory No dyspnea 0 03/19/2017 Gastrointestinal No abdominal pain 03/19/2017 Gastrointestinal No constipation 03/19/2017 Gastrointestinal No diarrhea 03/19/2017 Gastrointestinal nausea 03/19/2017 Gastrointestinal No vomiting 03/19/2017 Dermatologic No rash 07/2017 Neurologic No alteration of consciousness 03/19/2017 Neurologic No mental status change 03/19/2017 Cardiovascular exercise intolerance 03/19/2017 Cardiovascular fatigue 0 03/19/2017 Genitourinary/Nephrology No dysuria 03/19/2017 Genitourinary/Nephrology No nocturia 03/19/2017 Genitourinary/Nephrology No urinary incontinence 03/19/2017 Musculoskeletal No stiffness 03/19/2017 Musculoskeletal No swelling 03/19/2017 Musculoskeletal No muscle weakness 03/19/2017 Musculoskeletal No myalgias 03/19/2017 Constitutional recent illness 02/03/2017 Constitutional No chills 02/03/2017 Constitutional No diaphoresis 02/03/2017 Constitutional fatigue 1 04/05/2016 Constitutional No fever 02/03/2017 Constitutional malaise 1 04/05/2016 Eyes No blindness 2016 Ears/Nose/Throat/Neck nasal allergies 02/03/2017 Ears/Nose/Throat/Neck No nasal discharge 02/03/2017 Cardiovascular No chest pain/pressure 02/03/2017 Cardiovascular No palpitations 02/03/2017 Respiratory No chest congestion 02/03/2017 Respiratory No cough Respiratory No dyspnea 1 04/05/2016 Gastrointestinal No abdominal pain 02/03/2017 Gastrointestinal No constipation 02/03/2017 Gastrointestinal No diarrhea 02/03/2017 Gastrointestinal nausea 02/03/2017 Gastrointestinal No vomiting 02/03/2017 Dermatologic No rash Neurologic No alteration of consciousness 02/03/2017 Neurologic No mental status change 02/03/2017 Psychiatric No anxiety 1 04/05/2016 Psychiatric No depression 02/03/2017 Endocrine diabetes mellitus type 2 02/03/2017 Constitutional recent illness 01/07/2017 Constitutional No chills 01/07/2017 Constitutional No diaphoresis 01/07/2017 Constitutional fatigue 1 Constitutional No fever 01/07/2017 Constitutional malaise 1 Eyes No eye erythema Ears/Nose/Throat/Neck nasal allergies 01/07/2017 Ears/Nose/Throat/Neck headache 01/07/2017 Ears/Nose/Throat/Neck No nasal discharge 01/07/2017 Cardiovascular No chest pain/pressure 01/07/2017 Cardiovascular palpitations 01/07/2017 Respiratory cough 2016 Respiratory No dyspnea 1 Respiratory No chest congestion 01/07/2017 Gastrointestinal No abdominal pain 01/07/2017 Gastrointestinal No diarrhea 01/07/2017 Gastrointestinal No constipation 01/07/2017 Gastrointestinal nausea 01/07/2017 Gastrointestinal No vomiting 01/07/2017 Dermatologic No rash Neurologic No alteration of consciousness 01/07/2017 Neurologic No mental status change 01/07/2017 Constitutional No recent illness 12/17/2016 Constitutional No chills 12/17/2016 Constitutional No fatigue 12/17/2016 Constitutional No fever 12/17/2016 Ears/Nose/Throat/Neck No dizziness 12/17/2016 Ears/Nose/Throat/Neck No headache 12/17/2016 Cardiovascular No chest pain/pressure 12/17/2016 Cardiovascular No near-syncope/dizziness 12/17/2016 Cardiovascular No palpitations 12/17/2016 Respiratory No chest congestion 12/17/2016 Respiratory No cough 07/2016 Gastrointestinal No abdominal pain 12/17/2016 Gastrointestinal No constipation 12/17/2016 Gastrointestinal No diarrhea 12/17/2016 Gastrointestinal No nausea 12/17/2016 Gastrointestinal No vomiting 12/17/2016 Musculoskeletal No stiffness 12/17/2016 Musculoskeletal No swelling 12/17/2016 Musculoskeletal No muscle weakness 12/17/2016 Musculoskeletal No myalgias 12/17/2016 Psychiatric anxiety 1007/2016 Psychiatric depression 1 Constitutional No recent illness 09/14/2016 Constitutional No chills 09/14/2016 Constitutional No fatigue 09/14/2016 Constitutional No fever 09/14/2016 Eyes No blindness 2016 Eyes No vision change Ears/Nose/Throat/Neck No dizziness 09/14/2016 Ears/Nose/Throat/Neck No headache 09/14/2016 Cardiovascular No chest pain/pressure 09/14/2016 Cardiovascular No near-syncope/dizziness 09/14/2016 Cardiovascular No palpitations 09/14/2016 Respiratory No chest congestion 09/14/2016 Respiratory No cough 05/2016 Gastrointestinal No abdominal pain 09/14/2016 Gastrointestinal No constipation 09/14/2016 Gastrointestinal No diarrhea 09/14/2016 Gastrointestinal No nausea 09/14/2016 Gastrointestinal No vomiting 09/14/2016 Genitourinary/Nephrology No dysuria 09/14/2016 Musculoskeletal No stiffness 09/14/2016 Musculoskeletal No swelling 09/14/2016 Musculoskeletal No muscle weakness 09/14/2016 Musculoskeletal No myalgias 09/14/2016 Dermatologic No rash 05/2016 Dermatologic No scar 05/2016 Neurologic No alteration of consciousness 09/14/2016 Psychiatric anxiety 070 05/2016 Psychiatric depression 0 09/14/2016 Constitutional No recent illness 06/18/2016 Constitutional No chills 06/18/2016 Constitutional No fatigue 06/18/2016 Constitutional No fever 06/18/2016 Eyes No blindness 2016 Eyes No vision change Ears/Nose/Throat/Neck No dizziness 06/18/2016 Ears/Nose/Throat/Neck No headache 06/18/2016 Cardiovascular No chest pain/pressure 06/18/2016 Cardiovascular No near-syncope/dizziness 06/18/2016 Cardiovascular No palpitations 06/18/2016 Respiratory No chest congestion 06/18/2016 Respiratory No cough 08/2016 Gastrointestinal No abdominal pain 06/18/2016 Gastrointestinal No constipation 06/18/2016 Gastrointestinal No diarrhea 06/18/2016 Gastrointestinal No nausea 06/18/2016 Gastrointestinal No vomiting 06/18/2016 Genitourinary/Nephrology No dysuria 06/18/2016 Musculoskeletal No stiffness 06/18/2016 Musculoskeletal No swelling 06/18/2016 Musculoskeletal No muscle weakness 06/18/2016 Musculoskeletal No myalgias 06/18/2016 Dermatologic No rash 08/2016 Dermatologic No scar 08/2016 Neurologic No alteration of consciousness 06/18/2016 Psychiatric No anxiety 0 06/18/2016 Psychiatric No depression 06/18/2016 Constitutional No recent illness 04/16/2016 Constitutional No chills 04/16/2016 Constitutional No fatigue 04/16/2016 Constitutional No fever 04/16/2016 Eyes No blindness 2016 Eyes No vision change Ears/Nose/Throat/Neck No dizziness 04/16/2016 Ears/Nose/Throat/Neck No headache 04/16/2016 Cardiovascular No chest pain/pressure 04/16/2016 Cardiovascular No near-syncope/dizziness 04/16/2016 Cardiovascular No palpitations 04/16/2016 Respiratory No chest congestion 04/16/2016 Respiratory No cough 04/2016 Gastrointestinal No abdominal pain 04/16/2016 Gastrointestinal No constipation 04/16/2016 Gastrointestinal No diarrhea 04/16/2016 Gastrointestinal No nausea 04/16/2016 Gastrointestinal No vomiting 04/16/2016 Genitourinary/Nephrology No dysuria 04/16/2016 Musculoskeletal No stiffness 04/16/2016 Musculoskeletal No swelling 04/16/2016 Musculoskeletal No muscle weakness 04/16/2016 Musculoskeletal No myalgias 04/16/2016 Dermatologic No rash 04/2016 Dermatologic No scar 04/2016 Neurologic No alteration of consciousness 04/16/2016 Psychiatric No anxiety 0 04/16/2016 Psychiatric No depression 04/16/2016 Constitutional No recent illness 03/19/2016 Constitutional No chills 03/19/2016 Constitutional No fatigue 03/19/2016 Constitutional No fever 03/19/2016 Eyes No blindness 2016 Eyes No vision change Ears/Nose/Throat/Neck No dizziness 03/19/2016 Ears/Nose/Throat/Neck No headache 03/19/2016 Cardiovascular No chest pain/pressure 03/19/2016 Cardiovascular No near-syncope/dizziness 03/19/2016 Cardiovascular No palpitations 03/19/2016 Respiratory No chest congestion 03/19/2016 Respiratory No cough 07/2016 Gastrointestinal No abdominal pain 03/19/2016 Gastrointestinal No constipation 03/19/2016 Gastrointestinal No diarrhea 03/19/2016 Gastrointestinal No nausea 03/19/2016 Gastrointestinal No vomiting 03/19/2016 Genitourinary/Nephrology No dysuria 03/19/2016 Musculoskeletal No stiffness 03/19/2016 Musculoskeletal No swelling 03/19/2016 Musculoskeletal No muscle weakness 03/19/2016 Musculoskeletal No myalgias 03/19/2016 Dermatologic No rash 07/2016 Dermatologic No scar 07/2016 Neurologic No alteration of consciousness 03/19/2016 Psychiatric No anxiety 0 03/19/2016 Psychiatric No depression 03/19/2016 Constitutional No recent illness 11/14/2015 Constitutional No chills 11/14/2015 Constitutional No fatigue 11/14/2015 Constitutional No fever 11/14/2015 Eyes No blindness 2015 Eyes No vision change Ears/Nose/Throat/Neck No dizziness 11/14/2015 Ears/Nose/Throat/Neck No headache 11/14/2015 Cardiovascular No chest pain/pressure 11/14/2015 Cardiovascular No near-syncope/dizziness 11/14/2015 Cardiovascular No palpitations 11/14/2015 Respiratory No chest congestion 11/14/2015 Respiratory No cough 03/2015 Gastrointestinal No abdominal pain 11/14/2015 Gastrointestinal No constipation 11/14/2015 Gastrointestinal No diarrhea 11/14/2015 Gastrointestinal No nausea 11/14/2015 Gastrointestinal No vomiting 11/14/2015 Genitourinary/Nephrology No dysuria 11/14/2015 Musculoskeletal No stiffness 11/14/2015 Musculoskeletal No swelling 11/14/2015 Musculoskeletal No muscle weakness 11/14/2015 Musculoskeletal No myalgias 11/14/2015 Dermatologic No rash 03/2015 Dermatologic No scar 03/2015 Neurologic No alteration of consciousness 11/14/2015 Psychiatric No anxiety 0 11/14/2015 Psychiatric No depression 11/14/2015 Constitutional No recent illness 08/14/2015 Constitutional No chills 08/14/2015 Constitutional No fatigue 08/14/2015 Constitutional No fever 08/14/2015 Eyes No blindness 2015 Eyes No vision change Ears/Nose/Throat/Neck No dizziness 08/14/2015 Ears/Nose/Throat/Neck No headache 08/14/2015 Cardiovascular No chest pain/pressure 08/14/2015 Cardiovascular No near-syncope/dizziness 08/14/2015 Cardiovascular No palpitations 08/14/2015 Respiratory No chest congestion 08/14/2015 Respiratory No cough 03/2015 Gastrointestinal No abdominal pain 08/14/2015 Gastrointestinal No constipation 08/14/2015 Gastrointestinal No diarrhea 08/14/2015 Gastrointestinal No nausea 08/14/2015 Gastrointestinal No vomiting 08/14/2015 Genitourinary/Nephrology No dysuria 08/14/2015 Musculoskeletal stiffness 08/14/2015 Musculoskeletal No swelling 08/14/2015 Musculoskeletal No muscle weakness 08/14/2015 Musculoskeletal No myalgias 08/14/2015 Dermatologic No rash 03/2015 Dermatologic No scar 03/2015 Neurologic No alteration of consciousness 08/14/2015 Psychiatric No anxiety 0 08/14/2015 Psychiatric No depression 08/14/2015 Musculoskeletal back pain 08/14/2015 Constitutional No recent illness 07/17/2015 Constitutional No chills 07/17/2015 Constitutional No fatigue 07/17/2015 Constitutional No fever 07/17/2015 Eyes No blindness 2015 Eyes No vision change Ears/Nose/Throat/Neck No dizziness 07/17/2015 Ears/Nose/Throat/Neck No headache 07/17/2015 Cardiovascular No chest pain/pressure 07/17/2015 Cardiovascular No near-syncope/dizziness 07/17/2015 Cardiovascular No palpitations 07/17/2015 Respiratory No chest congestion 07/17/2015 Respiratory No cough 06/2015 Gastrointestinal No abdominal pain 07/17/2015 Gastrointestinal No constipation 07/17/2015 Gastrointestinal No diarrhea 07/17/2015 Gastrointestinal No nausea 07/17/2015 Gastrointestinal No vomiting 07/17/2015 Genitourinary/Nephrology No dysuria 07/17/2015 Musculoskeletal No stiffness 07/17/2015 Musculoskeletal No swelling 07/17/2015 Musculoskeletal No muscle weakness 07/17/2015 Musculoskeletal No myalgias 07/17/2015 Dermatologic No rash 06/2015 Dermatologic No scar 06/2015 Neurologic No alteration of consciousness 07/17/2015 Psychiatric No anxiety 0 07/17/2015 Psychiatric No depression 07/17/2015 Constitutional No chills 03/25/2015 Constitutional No fatigue 03/25/2015 Constitutional No fever 03/25/2015 Eyes No vision change Cardiovascular No chest pain/pressure 03/25/2015 Cardiovascular No palpitations 03/25/2015 Respiratory No chest congestion 03/25/2015 Respiratory No cough 01/2016 Gastrointestinal No abdominal pain 03/25/2015 Gastrointestinal No constipation 03/25/2015 Gastrointestinal No diarrhea 03/25/2015 Gastrointestinal No nausea 03/25/2015 Gastrointestinal No vomiting 03/25/2015 Genitourinary/Nephrology No dysuria 03/25/2015 Musculoskeletal No stiffness 03/25/2015 Musculoskeletal No swelling 03/25/2015 Musculoskeletal No muscle weakness 03/25/2015 Musculoskeletal No myalgias 03/25/2015 Dermatologic No rash 01/2016 Dermatologic No scar 01/2016 Neurologic No alteration of consciousness 03/25/2015 Psychiatric No anxiety 0 03/25/2015 Psychiatric No depression 03/25/2015 Eyes No eye discharge Eyes No eye erythema 01/2016 Ears/Nose/Throat/Neck No nasal allergies 03/25/2015 Ears/Nose/Throat/Neck No nasal discharge 03/25/2015 Ears/Nose/Throat/Neck No sinus congestion 03/25/2015 Ears/Nose/Throat/Neck No sore throat 03/25/2015 Neurologic No mental status change 03/25/2015 Constitutional No recent illness 12/04/2014 Constitutional No chills 12/04/2014 Constitutional No fatigue 12/04/2014 Constitutional No fever 12/04/2014 Eyes No blindness 2014 Eyes No vision change Ears/Nose/Throat/Neck No dizziness 12/04/2014 Ears/Nose/Throat/Neck No headache 12/04/2014 Cardiovascular No chest pain/pressure 12/04/2014 Cardiovascular No near-syncope/dizziness 12/04/2014 Cardiovascular No palpitations 12/04/2014 Respiratory No chest congestion 12/04/2014 Respiratory No cough Gastrointestinal No abdominal pain 12/04/2014 Gastrointestinal No constipation 12/04/2014 Gastrointestinal No diarrhea 12/04/2014 Gastrointestinal No nausea 12/04/2014 Gastrointestinal No vomiting 12/04/2014 Genitourinary/Nephrology No dysuria 12/04/2014 Musculoskeletal No stiffness 12/04/2014 Musculoskeletal No swelling 12/04/2014 Musculoskeletal No muscle weakness 12/04/2014 Musculoskeletal No myalgias 12/04/2014 Dermatologic No rash Dermatologic No scar Neurologic No alteration of consciousness 12/04/2014 Psychiatric No anxiety 0 12/04/2014 Psychiatric No depression 12/04/2014 Constitutional No chills 08/14/2014 Constitutional No fatigue 08/14/2014 Constitutional No fever 08/14/2014 Constitutional No recent illness 08/14/2014 Ears/Nose/Throat/Neck No dizziness 08/14/2014 Ears/Nose/Throat/Neck No headache 08/14/2014 Cardiovascular No chest pain/pressure 08/14/2014 Cardiovascular No near-syncope/dizziness 08/14/2014 Cardiovascular No palpitations 08/14/2014 Respiratory No chest congestion 08/14/2014 Respiratory No cough 04/2014 Gastrointestinal No abdominal pain 08/14/2014 Gastrointestinal No constipation 08/14/2014 Gastrointestinal No diarrhea 08/14/2014 Gastrointestinal No nausea 08/14/2014 Gastrointestinal No vomiting 08/14/2014 Genitourinary/Nephrology No dysuria 08/14/2014 Neurologic No alteration of consciousness 08/14/2014 Eyes No blindness 2014 Eyes No vision change Musculoskeletal No stiffness 08/14/2014 Musculoskeletal No swelling 08/14/2014 Musculoskeletal No muscle weakness 08/14/2014 Musculoskeletal No myalgias 08/14/2014 Dermatologic No rash 04/2014 Dermatologic No scar 04/2014 Psychiatric No anxiety 0 08/14/2014 Psychiatric No depression 08/14/2014 Physical Exam Exam Name System Name It em Name Status Result Effective Dates Notes Full Exam - General 1994 Constitutional general appearance Overall: well developed 04/27/2018 None Full Exam - General 1994 Constitutional general appearance Overall: in no acute distress 04/27/2018 None Full Exam - General 1994 Constitutional general appearance Overall: well nourished 04/27/2018 None Full Exam - General 1994 Constitutional general appearance Hygiene/Attention to Grooming: good hygiene 04/27/2018 None Full Exam - General 1994 Eyes conjunctiva/eyelids Overall: conjunctiva clear 04/27/2018 None Full Exam - General 1994 Eyes conjunctiva/eyelids Overall: cornea clear 04/27/2018 None Full Exam - General 1994 Eyes conjunctiva/eyelids Overall: eyelids normal 04/27/2018 None Full Exam - General 1994 Eyes pupils and irises Overall: pupils equal, round, reactive to light and accomodation 04/27/2018 None Full Exam - General 1994 Ears/Nose/Throat lips/teeth/gingiva Overall: benign lips 04/27/2018 None Full Exam - General 1994 Ears/Nose/Throat oral cavity/pharynx/larynx Overall: oral mucosa clear 04/27/2018 None Full Exam - General 1994 Respiratory auscultation Overall: breath sounds clear bilaterally 04/27/2018 None Full Exam - General 1994 Respiratory respiratory effort/rhythm Overall: no retractions 04/27/2018 None Full Exam - General 1994 Respiratory respiratory effort/rhythm Overall: normal rate 04/27/2018 None Full Exam - General 1994 Cardiovascular extremities Overall: no clubbing 04/27/2018 None Full Exam - General 1994 Cardiovascular auscultation of heart Overall: regular rate 04/27/2018 None Full Exam - General 1994 Cardiovascular auscultation of heart Overall: normal heart sounds 04/27/2018 None Full Exam - General 1994 Cardiovascular auscultation of heart Systolic murmur: holosystolic 04/27/2018 None Full Exam - General 1994 Cardiovascular auscultation of heart Systolic murmur grade: III/ 04/27/2018 None Full Exam - General 1994 Abdomen abdominal exam Overall: no tenderness 04/27/2018 None Full Exam - General 1994 Abdomen abdominal exam Overall: normal bowel sounds 04/27/2018 None Full Exam - General 1994 Neurologic cranial nerves Overall: crainial nerves 2 - 12 grossly intact 04/27/2018 None Full Exam - General 1994 Psychiatric orientation/consciousness Overall: oriented to person, place and time 04/27/2018 None Full Exam - General 1994 Psychiatric mood and affect Overall: normal mood and affect 04/27/2018 None Full Exam - General 1994 Psychiatric appearance Overall: well-groomed, good eye contact 04/27/2018 None Full Exam - General 1994 Musculoskeletal head and neck Overall: head atraumatic 04/27/2018 None Full Exam - General 1994 Constitutional general appearance Overall: well developed 03/28/2018 None Full Exam - General 1994 Constitutional general appearance Overall: in no acute distress 03/28/2018 None Full Exam - General 1994 Constitutional general appearance Overall: well nourished 03/28/2018 None Full Exam - General 1994 Constitutional general appearance Hygiene/Attention to Grooming: good hygiene 03/28/2018 None Full Exam - General 1994 Eyes conjunctiva/eyelids Overall: conjunctiva clear 03/28/2018 None Full Exam - General 1994 Eyes conjunctiva/eyelids Overall: cornea clear 03/28/2018 None Full Exam - General 1994 Eyes conjunctiva/eyelids Overall: eyelids normal 03/28/2018 None Full Exam [...] None Full Exam - General 1994 Eyes conjunctiva/eyelids Overall: conjunctiva clear 02/24/2018 None Full Exam - General 1994 Eyes conjunctiva/eyelids Overall: cornea clear 02/24/2018 None Full Exam - General 1994 Eyes conjunctiva/eyelids Overall: eyelids normal 02/24/2018 None Full Exam [...] None Full Exam - General 1994 Eyes conjunctiva/eyelids Overall: conjunctiva clear 01/27/2018 None Full Exam - General 1994 Eyes conjunctiva/eyelids Overall: cornea clear 01/27/2018 None Full Exam - General 1994 Eyes conjunctiva/eyelids Overall: eyelids normal 01/27/2018 None Full Exam [...] None Full Exam - General 1994 Eyes conjunctiva/eyelids Overall: conjunctiva clear 11/25/2017 None Full Exam - General 1994 Eyes conjunctiva/eyelids Overall: cornea clear 11/25/2017 None Full Exam - General 1994 Eyes conjunctiva/eyelids Overall: eyelids normal 11/25/2017 None Full Exam [...] None Full Exam - General 1994 Eyes conjunctiva/eyelids Overall: conjunctiva clear 10/26/2017 None Full Exam - General 1994 Eyes conjunctiva/eyelids Overall: cornea clear 10/26/2017 None Full Exam - General 1994 Eyes conjunctiva/eyelids Overall: eyelids normal 10/26/2017 None Full Exam [...] None Full Exam - General 1994 Eyes conjunctiva/eyelids Overall: conjunctiva clear 10/11/2017 None Full Exam - General 1994 Eyes conjunctiva/eyelids Overall: cornea clear 10/11/2017 None Full Exam - General 1994 Eyes conjunctiva/eyelids Overall: eyelids normal 10/11/2017 None Full Exam [...] None Full Exam - General 1994 Eyes conjunctiva/eyelids Overall: conjunctiva clear 09/22/2017 None Full Exam - General 1994 Eyes conjunctiva/eyelids Overall: cornea clear 09/22/2017 None Full Exam - General 1994 Eyes conjunctiva/eyelids Overall: eyelids normal 09/22/2017 None Full Exam [...] None Full Exam - General 1994 Eyes conjunctiva/eyelids Overall: conjunctiva clear 07/06/2017 None Full Exam - General 1994 Eyes conjunctiva/eyelids Overall: cornea clear 07/06/2017 None Full Exam - General 1994 Eyes conjunctiva/eyelids Overall: eyelids normal 07/06/2017 None Full Exam [...] None Full Exam - General 1994 Eyes conjunctiva/eyelids Overall: conjunctiva clear 06/03/2017 None Full Exam - General 1994 Eyes conjunctiva/eyelids Overall: cornea clear 06/03/2017 None Full Exam - General 1994 Eyes conjunctiva/eyelids Overall: eyelids normal 06/03/2017 None Full Exam [...] None Full Exam - General 1994 Eyes conjunctiva/eyelids Overall: conjunctiva clear 05/12/2017 None Full Exam - General 1994 Eyes conjunctiva/eyelids Overall: cornea clear 05/12/2017 None Full Exam - General 1994 Eyes conjunctiva/eyelids Overall: eyelids normal 05/12/2017 None Full Exam [...] None Full Exam - General 1994 Eyes conjunctiva/eyelids Overall: conjunctiva clear 04/15/2017 None Full Exam - General 1994 Eyes conjunctiva/eyelids Overall: cornea clear 04/15/2017 None Full Exam - General 1994 Eyes conjunctiva/eyelids Overall: eyelids normal 04/15/2017 None Full Exam [...] None Full Exam - General 1994 Eyes conjunctiva/eyelids Overall: conjunctiva clear 03/19/2017 None Full Exam - General 1994 Eyes conjunctiva/eyelids Overall: cornea clear 03/19/2017 None Full Exam - General 1994 Eyes conjunctiva/eyelids Overall: eyelids normal 03/19/2017 None Full Exam [...] None Full Exam - General 1994 Eyes conjunctiva/eyelids Overall: conjunctiva clear 02/03/2017 None Full Exam - General 1994 Eyes conjunctiva/eyelids Overall: cornea clear 02/03/2017 None Full Exam - General 1994 Eyes conjunctiva/eyelids Overall: eyelids normal 02/03/2017 None Full Exam [...] None Full Exam - General 1994 Eyes conjunctiva/eyelids Overall: conjunctiva clear 01/07/2017 None Full Exam - General 1994 Eyes conjunctiva/eyelids Overall: cornea clear 01/07/2017 None Full Exam - General 1994 Eyes conjunctiva/eyelids Overall: eyelids normal 01/07/2017 None Full Exam [...] None Full Exam - General 1994 Eyes conjunctiva/eyelids Overall: conjunctiva clear 12/17/2016 None Full Exam - General 1994 Eyes conjunctiva/eyelids Overall: cornea clear 12/17/2016 None Full Exam - General 1994 Eyes conjunctiva/eyelids Overall: eyelids normal 12/17/2016 None Full Exam [...] None Full Exam - General 1994 Eyes conjunctiva/eyelids Overall: conjunctiva clear 09/14/2016 None Full Exam - General 1994 Eyes conjunctiva/eyelids Overall: cornea clear 09/14/2016 None Full Exam - General 1994 Eyes conjunctiva/eyelids Overall: eyelids normal 09/14/2016 None Full Exam [...] None Full Exam - General 1994 Eyes conjunctiva/eyelids Overall: conjunctiva clear 06/18/2016 None Full Exam - General 1994 Eyes conjunctiva/eyelids Overall: cornea clear 06/18/2016 None Full Exam - General 1994 Eyes conjunctiva/eyelids Overall: eyelids normal 06/18/2016 None Full Exam [...] None Full Exam - General 1994 Eyes conjunctiva/eyelids Overall: conjunctiva clear 04/16/2016 None Full Exam - General 1994 Eyes conjunctiva/eyelids Overall: cornea clear 04/16/2016 None Full Exam - General 1994 Eyes conjunctiva/eyelids Overall: eyelids normal 04/16/2016 None Full Exam [...] None Full Exam - General 1994 Eyes conjunctiva/eyelids Overall: conjunctiva clear 03/19/2016 None Full Exam - General 1994 Eyes conjunctiva/eyelids Overall: cornea clear 03/19/2016 None Full Exam - General 1994 Eyes conjunctiva/eyelids Overall: eyelids normal 03/19/2016 None Full Exam [...] None Full Exam - General 1994 Eyes conjunctiva/eyelids Overall: conjunctiva clear 11/14/2015 None Full Exam - General 1994 Eyes conjunctiva/eyelids Overall: cornea clear 11/14/2015 None Full Exam - General 1994 Eyes conjunctiva/eyelids Overall: eyelids normal 11/14/2015 None Full Exam [...] None Full Exam - General 1994 Eyes conjunctiva/eyelids Overall: conjunctiva clear 08/14/2015 None Full Exam - General 1994 Eyes conjunctiva/eyelids Overall: cornea clear 08/14/2015 None Full Exam - General 1994 Eyes conjunctiva/eyelids Overall: eyelids normal 08/14/2015 None Full Exam [...] None Full Exam - General 1994 Eyes conjunctiva/eyelids Overall: conjunctiva clear 07/17/2015 None Full Exam - General 1994 Eyes conjunctiva/eyelids Overall: cornea clear 07/17/2015 None Full Exam - General 1994 Eyes conjunctiva/eyelids Overall: eyelids normal 07/17/2015 None Full Exam [...] None Full Exam - General 1994 Eyes conjunctiva/eyelids Overall: conjunctiva clear 03/25/2015 None Full Exam - General 1994 Eyes conjunctiva/eyelids Overall: cornea clear 03/25/2015 None Full Exam - General 1994 Eyes conjunctiva/eyelids Overall: eyelids normal 03/25/2015 None Full Exam [...] None Full Exam - General 1994 Eyes conjunctiva/eyelids Overall: conjunctiva clear 12/04/2014 None Full Exam - General 1994 Eyes conjunctiva/eyelids Overall: cornea clear 12/04/2014 None Full Exam - General 1994 Eyes conjunctiva/eyelids Overall: eyelids normal 12/04/2014 None Full Exam [...] None Full Exam - General 1994 Eyes conjunctiva/eyelids Overall: conjunctiva clear 08/14/2014 None Full Exam - General 1994 Eyes conjunctiva/eyelids Overall: cornea clear 08/14/2014 None Full Exam - General 1994 Eyes conjunctiva/eyelids Overall: eyelids normal 08/14/2014 None Full Exam [...] None Procedures Procedure Codes Date URINALYSIS NONAUTO W /O SCOPE CPT-4: 96058 04/28/2018 URINALYSIS NONAUTO W /O SCOPE CPT-4: 03309 02/24/2018 URINALYSIS NONAUTO W /O SCOPE CPT-4: 31114 02/07/2018 ADMIN INFLUENZA VIRU S VAC CPT-4: G0008 11/25/2017 FLU VAC NO PRSV 4 VA L 3 YRS+ CPT-4: 08909 11/25/2017 GLUC MONITOR CONT PH YS I&R CPT-4: 00181 10/26/2017 GLUCOSE MONITORING CONT CPT-4: 34044 10/11/2017 URINALYSIS NONAUTO W /O SCOPE CPT-4: 05387 04/15/2017 FLU VAC NO PRSV 4 VA L 3 YRS+ CPT-4: 38880 12/17/2016 ADMIN INFLUENZA VIRU S VAC CPT-4: G0008 12/17/2016 FLU VACC PRSV FREE I NC ANTIG Formatting Model/CDA Sections, Assigned to/Nery Daniels CPT-4: [id number] 11/14/2015 ADMIN INFLUENZA VIRU S VAC CPT-4: G0008 11/14/2015 ADMIN INFLUENZA VIRU S VAC Formatting Model/CDA Sections, Assigned to/Nery Daniels CPT-4: [id number] 12/04/2014 FLU VACC 4 ANABELLE 3 YRS PLUS IM SNOMED CT: [id number] CPT-4: 31054 12/04/2014 Vital Signs Date Vital 04/27/2018 Blood Pressure 1: 118/44 Code: 8480-6 BMI: 28.3 Code: 13184-6 Heart Rate 1: 77 bpm Height: 5' SpO2: 99% Weight: 145 lbs 03/28/2018 Blood Pressure 1: 140/74 Code: 8480-6 BMI: 28.1 Code: 05637-1 Heart Rate 1: 87 bpm Height: 5' SpO2: 99% Weight: 144 lbs 02/24/2018 Blood Pressure 1: 130/62 Code: 8480-6 BMI: 28.9 Code: 98837-1 Heart Rate 1: 57 bpm Height: 5' SpO2: 99% Weight: 148 lbs 01/27/2018 Blood Pressure 1: 142/70 Code: 8480-6 BMI: 29.5 Code: 47709-7 Heart Rate 1: 61 bpm Height: 5' SpO2: 99% Weight: 151 lbs 11/25/2017 Blood Pressure 1: 148/72 Code: 8480-6 BMI: 30.9 Code: 64835-8 Heart Rate 1: 62 bpm Height: 5' SpO2: 98% Weight: 158 lbs 10/26/2017 Blood Pressure 1: 156/74 Code: 8480-6 BMI: 31.2 Code: 25862-0 Heart Rate 1: 71 bpm Height: 5' SpO2: 98% Weight: 160 lbs 10/11/2017 Blood Pressure 1: 128/70 Code: 8480-6 BMI: 30.9 Code: 24371-5 Heart Rate 1: 70 bpm Height: 5' SpO2: 95% Weight: 158 lbs 09/22/2017 Blood Pressure 1: 110/52 Code: 8480-6 BMI: 30.9 Code: 84615-8 Heart Rate 1: 72 bpm Height: 5' SpO2: 99% Weight: 158 lbs 07/06/2017 Blood Pressure 1: 120/85 Code: 8480-6 BMI: 31.4 Code: 15623-4 Heart Rate 1: 74 bpm Height: 5' SpO2: 92% Weight: 161 lbs 06/03/2017 Blood Pressure 1: 120/62 Code: 8480-6 BMI: 31.1 Code: 36236-1 Heart Rate 1: 73 bpm Height: 5' SpO2: 99% Weight: 159 lbs 05/12/2017 Blood Pressure 1: 132/68 Code: 8480-6 BMI: 32.4 Code: 24815-9 Heart Rate 1: 95 bpm Height: 5' SpO2: 97% Weight: 166 lbs 04/15/2017 Blood Pressure 1: 128/84 Code: 8480-6 BMI: 32.4 Code: 19311-5 Heart Rate 1: 62 bpm Height: 5' SpO2: 97% Weight: 166 lbs 03/19/2017 Blood Pressure 1: 112/60 Code: 8480-6 BMI: 32.0 Code: 37586-7 Height: 5' Weight: 164 lbs 02/03/2017 Blood Pressure 1: 128/76 Code: 8480-6 BMI: 33.4 Code: 14057-5 Heart Rate 1: 91 bpm Height: 5' SpO2: 99% Weight: 171 lbs 01/07/2017 Blood Pressure 1: 126/74 Code: 8480-6 BMI: 34.2 Code: 74778-6 Heart Rate 1: 83 bpm Height: 5' SpO2: 97% Weight: 175 lbs 12/17/2016 Blood Pressure 1: 122/72 Code: 8480-6 BMI: 34.0 Code: 03341-6 Heart Rate 1: 78 bpm Height: 5' SpO2: 97% Weight: 174 lbs 09/14/2016 Blood Pressure 1: 128/86 Code: 8480-6 BMI: 33.8 Code: 27443-7 Heart Rate 1: 88 bpm Height: 5' SpO2: 96% Weight: 173 lbs 06/18/2016 Blood Pressure 1: 122/74 Code: 8480-6 BMI: 34.8 Code: 78602-2 Heart Rate 1: 78 bpm Height: 5' SpO2: 98% Weight: 178 lbs 04/16/2016 Blood Pressure 1: 134/68 Code: 8480-6 BMI: 35.0 Code: 76127-4 Heart Rate 1: 67 bpm Height: 5' SpO2: 97% Weight: 179 lbs 03/19/2016 Blood Pressure 1: 132/74 Code: 8480-6 BMI: 34.6 Code: 09202-5 Heart Rate 1: 74 bpm Height: 5' SpO2: 97% Weight: 177 lbs 11/14/2015 Blood Pressure 1: 132/70 Code: 8480-6 BMI: 35.2 Code: 32909-8 Heart Rate 1: 68 bpm Height: 5' Weight: 180 lbs 08/14/2015 Blood Pressure 1: 122/74 Code: 8480-6 BMI: 33.8 Code: 84574-3 Heart Rate 1: 73 bpm Height: 5' SpO2: 93% Weight: 173 lbs 07/17/2015 Blood Pressure 1: 138/78 Code: 8480-6 BMI: 34.0 Code: 62648-7 Heart Rate 1: 85 bpm Height: 5' SpO2: 97% Weight: 174 lbs 03/25/2015 Blood Pressure 1: 130/78 Code: 8480-6 BMI: 33.2 Code: 35210-7 Heart Rate 1: 77 bpm Height: 5' SpO2: 97% Weight: 170 lbs 12/04/2014 Blood Pressure 1: 120/74 Code: 8480-6 BMI: 35.4 Code: 15548-2 Heart Rate 1: 67 bpm Height: 5' SpO2: 94% Weight: 181 lbs 5 oz 08/14/2014 Blood Pressure 1: 132/68 Code: 8480-6 BMI: 32.1 Code: 10603-6 Heart Rate 1: 62 bpm Height: 5'3" SpO2: 97% Weight: 184 lbs Functional Status No Functional Status data History of Present Illness Symptom Name Status Resu lt Effective Date Notes Quality burning 04/27/2018 None Quality aching 04/27/2018 None Quality sharp 04/27/2018 None Quality intermittent 04/27/2018 None Quality cramping 04/27/2018 None Location in the RLQ 04/27/2018 None Location in the RLQ 03/28/2018 None Radiating the back 03/28/2018 None Quality acute 03/28/2018 None Quality sharp 03/28/2018 None Onset and Resolution o ngoing 03/28/2018 None Onset of Symptom 1+ mo nths ago 03/28/2018 None Limitation on Activities moderately limits activities 03/28/2018 None Frequency of Episodes daily 03/28/2018 None Triggers no known asso ciated factors 03/28/2018 None Pertinent Findings l[place] sea 03/28/2018 None Quality insulin depend ent 03/28/2018 None Quality chronic 03/28/2018 None Alleviating Factors me dication 03/28/2018 None Alleviating Factors in sulin 03/28/2018 None Exacerbating Factors d iet 03/28/2018 None Pertinent Findings Den ies dizziness 03/28/2018 None Pertinent Findings Den ies dyspnea 03/28/2018 None Pertinent Findings Den ies nausea 03/28/2018 None Pertinent Findings num bness 03/28/2018 in her feet Onset of Symptom onset as an adult 03/28/2018 None Quality chronic 03/28/2018 None Quality primary hypert ension 03/28/2018 None Onset and Resolution o ngoing 03/28/2018 None Onset of Symptom durin g adulthood 03/28/2018 None Blood Pressure Values not checking blood pressure at home 03/28/2018 None Alleviating Factors me dication 03/28/2018 None Pertinent Findings Den ies edema 03/28/2018 None Location on both sides 03/28/2018 None Quality intermittent 03/28/2018 None Quality worsening 03/28/2018 None Onset and Resolution o ngoing 03/28/2018 None Limitation on Activities allows weight bearing activity 03/28/2018 None Limitation on Activities moderately limits activities 03/28/2018 None Frequency of Episodes daily 03/28/2018 -worse at night Alleviating Factors ch anging position 03/28/2018 None Exacerbating Factors l justyn down 03/28/2018 None Quality insulin depend ent 02/24/2018 None Quality chronic 02/24/2018 None Alleviating Factors me dication 02/24/2018 None Alleviating Factors in sulin 02/24/2018 None Exacerbating Factors d iet 02/24/2018 None Pertinent Findings Den ies dizziness 02/24/2018 None Pertinent Findings Den ies dyspnea 02/24/2018 None Pertinent Findings Den ies nausea 02/24/2018 None Onset of Symptom onset as an adult 02/24/2018 None Quality chronic 02/24/2018 None Quality primary hypert ension 02/24/2018 None Onset and Resolution o ngoing 02/24/2018 None Onset of Symptom durin g adulthood 02/24/2018 None Blood Pressure Values not checking blood pressure at home 02/24/2018 None Alleviating Factors me dication 02/24/2018 None Pertinent Findings Den ies edema 02/24/2018 None Test results Pt checki ng blood glucose at home, see scanned readings 02/24/2018 None Test results HgbA1c le yarelis 6.8 02/24/2018 None Location on both sides 02/24/2018 None Quality worsening 02/24/2018 None Quality intermittent 02/24/2018 None Onset and Resolution o ngoing 02/24/2018 None Limitation on Activities allows weight bearing activity 02/24/2018 None Limitation on Activities moderately limits activities 02/24/2018 None Frequency of Episodes daily 02/24/2018 -worse at night Exacerbating Factors l justyn down 02/24/2018 None Alleviating Factors ch anging position 02/24/2018 None Glucose monitoring daily 02/24/2018 None Pertinent Findings num bness 02/24/2018 in her feet diabetes mellitus Quality insulin dependent 01/27/2018 None diabetes mellitus Quality chronic 01/27/2018 None diabetes mellitus Alleviating Factors medication 01/27/2018 None diabetes mellitus Alleviating Factors insulin 01/27/2018 None diabetes mellitus Exacerbating Factors diet 01/27/2018 None diabetes mellitus Pertinent Findings Denies dizziness 01/27/2018 None diabetes mellitus Onset of Symptom onset as an adult 01/27/2018 None hypertension Quality chr onic 01/27/2018 None hypertension Quality shea braden hypertension 01/27/2018 None hypertension Onset and Resolution ongoing 01/27/2018 None hypertension Onset of Symptom during adulthood 01/27/2018 None hypertension Alleviating Factors medication 01/27/2018 None diabetes mellitus Test results Pt checking blood glucose at home, see scanned readings 01/27/2018 None diabetes mellitus Glucose monitoring fasting 01/27/2018 None diabetes mellitus Pertinent Findings Denies dyspnea 01/27/2018 None diabetes mellitus Pertinent Findings nausea 01/27/2018 when she came home from [facility] hypertension Blood Pressure Values not checking blood [...] blood glucose at home, see scanned readings 11/25/2017 None diabetes mellitus Pertinent Findings Denies dizziness 11/25/2017 None wrist pain Onset of Symptom 2-3 months ago 11/25/2017 None wrist pain Onset and Resolution ongoing 11/25/2017 None wrist pain Location on t he left 11/25/2017 None wrist pain Quality acute 11/25/2017 None wrist pain Quality numbn ess 11/25/2017 None wrist pain Frequency of Episodes [...] Findings Denies nausea 09/22/2017 None hypertension Quality shea braden hypertension 09/22/2017 None hypertension Onset and Resolution [...] mellitus Quality chronic 09/22/2017 None hypertension Quality chr onic 09/22/2017 None diabetes mellitus Test results Pt checking blood glucose at home, see scanned readings 09/22/2017 None diabetes mellitus Glucose monitoring fasting 09/22/2017 None hypertension Quality sta ble 09/22/2017 None depression Onset and Resolution ongoing 09/22/2017 None depression Triggers rece nt of family member 09/22/2017 None depression Triggers stre ss 09/22/2017 None depression Pertinent Findings depressed mood 09/22/2017 None diabetes mellitus Quality insulin dependent 09/22/2017 None diabetes mellitus Alleviating Factors insulin 09/22/2017 None Hospital Follow Up _ Oth er: afib with RVR, chest pain, pulmonary edema 07/06/2017 None Hospital Follow Up Quality acute 07/06/2017 None Hospital Follow Up Quality improving 07/06/2017 None Hospital Follow Up Onset and Resolution ongoing 07/06/2017 None Hospital Follow Up Severity mild 07/06/2017 None Hospital Follow Up Significant Medic al Conditions afib 07/06/2017 None Hospital Follow Up Alleviating Factors medication 07/06/2017 None Hospital Follow Up _ Oth er: afib with RVR, chest pain, pulmonary edema 06/03/2017 None Hospital Follow Up Quality acute 06/03/2017 None Hospital Follow Up Quality improving 06/03/2017 None Hospital Follow Up Alleviating Factors medication 06/03/2017 None Hospital Follow Up Onset and Resolution ongoing 06/03/2017 None Hospital Follow Up Significant Medic al Conditions afib 06/03/2017 None Hospital Follow Up Severity mild 06/03/2017 None arrhythmia Quality tachy cardia 05/12/2017 None arrhythmia Onset and Resolution sudden in onset 05/12/2017 None arrhythmia Onset and Resolution resolved 05/12/2017 None arrhythmia Pertinent Findings Denies fever 05/12/2017 None arrhythmia Pertinent Findings Denies chills 05/12/2017 None arrhythmia Pertinent Findings Denies syncope 05/12/2017 None Hospital Follow Up _ inf ection 04/15/2017 None Hospital Follow Up _ car diac disease 04/15/2017 None Hospital Follow Up _ Oth er: shortness of breath 04/15/2017 None Hospital Follow [...] Pertinent Findings nausea 04/15/2017 --improving hypertension Quality shea braden hypertension 04/15/2017 None hypertension Onset and Resolution ongoing 04/15/2017 None hypertension Onset of Symptom during adulthood 04/15/2017 None hypertension Blood Pressure Values not checking blood pressure at home 04/15/2017 None hypertension Alleviating Factors medication 04/15/2017 None hypertension Pertinent Findings Denies dizziness 04/15/2017 ---Has blurred vision intermittently- using eye drops hypertension Pertinent Findings dyspnea 04/15/2017 occasionally with exertio n hypertension Pertinent Findings Denies edema 04/15/2017 None [...] urgency 04/15/2017 None cough Location in the th roat 04/15/2017 None cough Quality intermitte nt 04/15/2017 None cough Onset and Resolution ongoing 04/15/2017 None cough Pertinent Findings Denies chest discomfort 04/15/2017 None cough Pertinent Findings Denies dyspnea 04/15/2017 None cough Pertinent Findings Denies fever 04/15/2017 None Hospital Follow Up _ inf ection 03/19/2017 None Hospital Follow Up _ car diac disease 03/19/2017 None Hospital Follow Up _ Oth er: shortness of breath 03/19/2017 None Hospital Follow [...] blood glucose at home, see scanned readings 02/03/2017 None diabetes mellitus Glucose monitoring fasting 02/03/2017 None diabetes mellitus Pertinent Findings dizziness 02/03/2017 None diabetes mellitus Pertinent Findings dyspnea 02/03/2017 None headache Quality intermi ttent 01/07/2017 None headache Location in the right occipital area 01/07/2017 None headache Location in the left occipital area 01/07/2017 None headache Onset and Resolution sudden in onset 01/07/2017 None headache Quality aching 01/07/2017 None headache Quality acute 01/07/2017 None headache Onset of Symptom 2 weeks ago 01/07/2017 None headache Frequency of Episodes daily 01/07/2017 None headache Triggers no kno wn associated factors 01/07/2017 None headache Pertinent Findings [...] hypertension Pertinent Findings dyspnea 12/17/2016 occasionally with exertio n hypertension Pertinent Findings Denies edema 12/17/2016 None hypertension Quality shea braden hypertension 12/17/2016 None diabetes mellitus Test results Pt checking blood glucose at home, see scanned readings 12/17/2016 None diabetes mellitus Glucose monitoring fasting 12/17/2016 None diabetes mellitus Glucose monitoring daily 12/17/2016 None constipation Quality int ermittent 12/17/2016 None constipation Onset and Resolution ongoing [...] Factors medication 06/18/2016 None back pain Location lumba r-sacral spine 04/16/2016 None back pain Quality interm ittent 04/16/2016 None back pain Onset and Resolution [...] medication (_) 04/16/2016 None back pain Location lumba r-sacral spine 03/19/2016 None back pain Quality interm ittent 03/19/2016 None back pain Onset and Resolution [...] Denies edema 03/19/2016 None back pain Location lumba r-sacral spine 11/14/2015 None back pain Quality improv ing 11/14/2015 None back pain Quality interm ittent 11/14/2015 None back pain Onset and Resolution [...] blood glucose at home, see scanned readings 11/14/2015 None diabetes mellitus Glucose monitoring daily 11/14/2015 None back pain Location lumba r-sacral spine 08/14/2015 None back pain Quality interm ittent 08/14/2015 None back pain Quality improv ing 08/14/2015 None back pain Onset and Resolution [...] blood glucose at home, see scanned readings 07/17/2015 None diabetes mellitus Glucose monitoring daily 07/17/2015 None urinary urgency Quality constant 07/17/2015 None urinary urgency Onset and Resolution ongoing 07/17/2015 None diabetes mellitus Nutrition ADA diet 07/17/2015 None diabetes mellitus Exercise minimal exercise 07/17/2015 None Hospital Follow Up _ Oth er: 03/25/2015 None Hospital Follow Up Onset of Symptom 2 days ago 03/25/2015 None Hospital Follow Up Onset and Resolution sudden in onset 03/25/2015 None diabetes mellitus Onset of Symptom onset as an adult 12/04/2014 None blood pressure followup Quality chronic 12/04/2014 None blood pressure followup Onset and Re solution ongoing 12/04/2014 None blood pressure followup Onset of Symptom during childhood 12/04/2014 None blood pressure followup Blood Pressu re Values not checking blood pressure at home 12/04/2014 None blood pressure followup Blood Pressu re Values pt checking blood pressure - see scanned document 12/04/2014 None blood pressure followup Frequency of Episodes unchanged 12/04/2014 Non e blood pressure followup Triggers stress 12/04/2014 None blood pressure followup Alleviating Factor s diet changes 12/04/2014 None blood pressure followup Alleviating Factor s exercise 12/04/2014 None blood pressure followup Alleviating Factor s medication 12/04/2014 None diabetes mellitus Test results Pt checking blood glucose readings, did not bring results to clinic 12/04/2014 Fasting BG 152 this am diabetes mellitus Test results Pt checking blood glucose at home, see scanned readings 08/14/2014 None diabetes mellitus Glucose monitoring daily 08/14/2014 None diabetes mellitus Onset of Symptom onset as an adult 08/14/2014 None blood pressure followup Alleviating Factor s diet changes 08/14/2014 None blood pressure followup Alleviating Factor s exercise 08/14/2014 None blood pressure followup Alleviating Factor s medication 08/14/2014 None blood pressure followup Blood Pressu re Values not checking blood pressure at home 08/14/2014 None blood pressure followup Blood Pressu re Values pt checking blood pressure - see scanned document 08/14/2014 None blood pressure followup Frequency of Episodes unchanged 08/14/2014 Non e blood pressure followup Onset and Re solution ongoing 08/14/2014 None blood pressure followup Onset of Symptom during childhood 08/14/2014 None blood pressure followup Quality chronic 08/14/2014 None blood pressure followup Triggers stress 08/14/2014 None Advance Directives No Advance Directive data Encounters Encounter Performer Loca tion Codes Date 29961 EST. PATIENT, LEVEL III Diagnosis: Right upper quadrant pain[ICD10: R10.11] Gardenia Nicole MD, [facility] CPT-4: 74161 04/27/2018 ([id number]) 36336 EST. P ATIENT, LEVEL IV Diagnosis: Essential (primary) hypertension[ICD10: I10] Diagnosis: Right upper quadrant pain[ICD10: R10.11] Mila Nicole MD, [facility] CPT-4: 32335 03/28/2018 ([id number]) 50955 EST. P ATIENT, LEVEL IV Diagnosis: Low back pain[ICD10: M54.5] Diagnosis: Dysuria[ICD10: R30.0] Diagnosis: Type 2 diabetes mellitus with hyperglycemia[ICD10: E11.65] Claudia Nicole MD, [facility] CPT-4: 68072 02/24/2018 ([id number]) 54435 EST. P ATIENT, LEVEL IV Diagnosis: Type 2 diabetes mellitus with hyperglycemia[ICD10: E11.65] Diagnosis: Essential (primary) hypertension[ICD10: I10] Diagnosis: Major depressive disorder, recurrent, mild[ICD10: F33.0] Diagnosis: Generalized anxiety disorder[ICD10: F41.1] Claudia Nicole MD, [facility] CPT-4: 81299 01/27/2018 ([id number]) 62437 EST. P ATIENT, LEVEL IV Diagnosis: Type 2 diabetes mellitus with hyperglycemia[ICD10: E11.65] Diagnosis: Essential (primary) hypertension[ICD10: I10] Diagnosis: Encounter for immunization[ICD10: Z23] Diagnosis: Carpal tunnel syndrome, left upper limb[ICD10: G56.02] Claudia Nicole MD, [facility] CPT-4: 64120 11/25/2017 ([id number]) 89508 EST. P ATIENT, LEVEL III Diagnosis: Type 2 diabetes mellitus with hyperglycemia[ICD10: E11.65] Claudia Nicole MD, [facility] CPT-4: 13057 10/26/2017 ([id number]) Miscellaneou s no charge Diagnosis: Type 2 diabetes mellitus with hyperglycemia[ICD10: E11.65] Claudia Nicole MD, [facility] CPT-4: 09680 10/18/2017 ([id number]) 87440 EST. P ATIENT, LEVEL IV Diagnosis: Type 2 diabetes mellitus with diabetic autonomic (poly)neuropathy[ICD10: E11.43] Diagnosis: Essential (primary) hypertension[ICD10: I10] Mila Nicole MD, [facility] CPT-4: 34491 09/22/2017 ([id number]) 06116 EST. P ATIENT, LEVEL IV Diagnosis: Type 2 diabetes mellitus with hyperglycemia[ICD10: E11.65] Diagnosis: Paroxysmal atrial fibrillation[ICD10: I48.0] Diagnosis: Essential (primary) hypertension[ICD10: I10] Mila Nicole MD, [facility] CPT-4: 65821 07/06/2017 ([id number]) 96034 EST. P ATIENT, LEVEL IV Diagnosis: Essential (primary) hypertension[ICD10: I10] Diagnosis: Type 2 diabetes mellitus with hyperglycemia[ICD10: E11.65] Diagnosis: Paroxysmal atrial fibrillation[ICD10: I48.0] Claudia Nicole MD, [facility] CPT-4: 76836 06/03/2017 62735 EST. PATIENT, LEVEL III Diagnosis: Generalized anxiety disorder[ICD10: F41.1] Diagnosis: Major depressive disorder, recurrent, moderate[ICD10: F33.1] Diagnosis: Paroxysmal tachycardia, unspecified[ICD10: I47.9] Gardenia Nicole MD, [facility] CPT-4: 17935 05/12/2017 ([id number]) 20036 EST. P ATIENT, LEVEL IV Diagnosis: Essential (primary) hypertension[ICD10: I10] Diagnosis: Cough[ICD10: R05] Diagnosis: Dysuria[ICD10: R30.0] Mila Nicole MD, [facility] CPT-4: 85107 04/15/2017 ([id number]) 09451 EST. P ATIENT, LEVEL IV Diagnosis: Type 2 diabetes mellitus with hyperglycemia[ICD10: E11.65] Diagnosis: Essential (primary) hypertension[ICD10: I10] Mila Nicole MD, [facility] CPT-4: 93039 03/19/2017 ([id number]) 08651 EST. P ATIENT, LEVEL III Diagnosis: Type 2 diabetes mellitus with hyperglycemia[ICD10: E11.65] Mila Nicole MD, [facility] CPT-4: 99906 02/03/2017 03153 EST. PATIENT, LEVEL IV Diagnosis: Generalized anxiety disorder[ICD10: F41.1] Diagnosis: Type 2 diabetes mellitus with hyperglycemia[ICD10: E11.65] Diagnosis: Essential (primary) hypertension[ICD10: I10] Gardenia Nicole MD, [facility] CPT-4: 45158 01/07/2017 ([id number]) 22327 EST. P ATIENT, LEVEL III Diagnosis: Type 2 diabetes mellitus with hyperglycemia[ICD10: E11.65] Diagnosis: Encounter for immunization[ICD10: Z23] Mila Nicole MD, [facility] CPT-4: 17546 12/17/2016 ([id number]) 71489 EST. P ATIENT, LEVEL IV Diagnosis: Type 2 diabetes mellitus with hyperglycemia[ICD10: E11.65] Diagnosis: Essential (primary) hypertension[ICD10: I10] Diagnosis: Major depressive disorder, recurrent, mild[ICD10: F33.0] Mila Nicole MD, [facility] CPT-4: 48781 09/14/2016 ([id number]) 97594 EST. P ATIENT, LEVEL III Diagnosis: Type 2 diabetes mellitus with diabetic autonomic (poly)neuropathy[ICD10: E11.43] Diagnosis: Essential (primary) hypertension[ICD10: I10] Mila Nicole MD, [facility] CPT-4: 31610 06/18/2016 ([id number]) 12051 EST. P ATIENT, LEVEL IV Diagnosis: Type 2 diabetes mellitus with hyperglycemia[ICD10: E11.65] Diagnosis: Essential (primary) hypertension[ICD10: I10] Mila Nicole MD, [facility] CPT-4: 85968 04/16/2016 ([id number]) 08418 EST. 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 P ATIENT, LEVEL IV Diagnosis: Type 2 diabetes mellitus with hyperglycemia[ICD10: E11.65] Diagnosis: Encounter for immunization[ICD10: Z23] Diagnosis: Essential (primary) hypertension[ICD10: I10] Mila Nicole MD, [facility] CPT-4: 68135 11/14/2015 ([id number]) 73499 EST. P ATIENT, LEVEL IV Diagnosis: Type 2 diabetes mellitus with hyperglycemia[ICD10: E11.65] Diagnosis: Essential (primary) hypertension[ICD10: I10] Diagnosis: Low back pain[ICD10: M54.5] Mila Nicole MD, [facility] CPT-4: 54658 08/14/2015 ([id number]) 13405 EST. P ATIENT, LEVEL IV Diagnosis: Type 2 diabetes mellitus with hyperglycemia[ICD10: E11.65] Diagnosis: Essential (primary) hypertension[ICD10: I10] Diagnosis: Hypothyroidism, unspecified[ICD10: E03.9] Mila Nicole MD, [facility] CPT-4: 80272 07/17/2015 ([id number]) 31033 EST. P ATIENT, LEVEL IV Diagnosis: Essential (primary) hypertension[ICD10: I10] Diagnosis: Type 2 diabetes mellitus with hyperglycemia[ICD10: E11.65] Diagnosis: Headache[ICD10: R51] Gardenia Nicole MD, [facility] CPT-4: 07820 03/25/2015 ([id number]) 99826 EST. P ATIENT, LEVEL IV Diagnosis: ESSENTIAL HYPERTENSION[ICD9: 401.9] Diagnosis: DIABETES TYPE II[ICD9: 250.00] Diagnosis: Aortic stenosis[ICD9: 424.1] Mila Nicole MD, [facility] CPT-4: 70568 12/04/2014 ([id number]) OFFICE VISI T, NEW - LEVEL 4 Diagnosis: ESSENTIAL HYPERTENSION[ICD9: 401.9] Diagnosis: Diabetes mellitus out of control[ICD9: 250.02] Mila Nicole MD, [facility] CPT-4: 34823 08/14/2014 Plan of Care Planned Activity Notes C odes Status Date Patient Education: Patient Medication Summary Completed 06/07/2018 Care Plan: SCREENINGMAMMOGRAPHYDIGITAL LOINC : 20184-1 Pending 06/07/2018 Appointment: Lab Draw 04/28/2018 Patient Education: Patient Medication Summary Completed 04/28/2018 Visit Plan: RUQ pain, generalized a bdominal pain - ongoing, intermittent - will check labs and CT scan due to the pains severity and persistence - pt is to notify clinic if symptoms change, or with any changes, questions, or concerns. 04/27/2018 Visit Plan: RUQ pain, generalized a bdominal pain - ongoing, intermittent - will check labs and CT scan due to the pains severity and persistence - pt is to notify clinic if symptoms change, or with any changes, questions, or concerns. 04/27/2018 Appointment: Gardenia Shah [facility]Ptel: [phone] [facility] [address] [place] [place] (10 min) Simple 04/27/2018 Patient Education: Patient Medication Summary Completed 04/27/2018 [facility]ment: [phone] [facility] [place] (15 min) Moderate 04/05/2018 Visit Plan: Right upper abdominal p ain radiating to the back - I have [...] well - continue with current regimen. 03/28/2018 Appointment: [facility] [phone] [facility] [place] (15 min) Moderate 03/28/2018 Patient Education: Patient Medication Summary Completed 03/28/2018 Patient Education: Hypertension Completed 03/28/2018 Care Plan: ECHO EXAM OF ABDOMEN Pending 03/28/2018 Visit Plan: Low back pain-xray lumb ar spine Dysuria- improved-will culture urine [id number] changes today 02/24/2018 Appointment: Claudia Pruitt WPtel: [phone] [facility] [phone] (15 min) Moderate 02/24/2018 Patient Education: Patient Medication Summary Completed 02/24/2018 Patient Education: Back Pain Completed 02/24/2018 Appointment: Lab Draw 02/07/2018 Patient Education: Patient Medication Summary Completed 02/07/2018 Visit Plan: Hypertension - well con trolled - continue with current medications, continue with [...] current medications. 01/27/2018 Appointment: Claudia Pruitt WPtel: [phone] [place] (15 min) Moderate 01/27/2018 Patient Education: Patient Medication Summary Completed 01/27/2018 Patient Education: Depression Completed 01/27/2018 Visit Plan: Diabetes Mellitus - Unc ontrolled - per recent FSBS reports. I have [...] worse 11/25/2017 Appointment: Claudia Pruitt WPtel: [phone] [phone] [place] (15 min) Moderate 11/25/2017 Patient Education: Patient Medication Summary Completed 11/25/2017 Appointment: [facility] [phone] [facility] [place] (15 min) Moderate 10/28/2017 Visit Plan: Diabetes Mellitus -IPRO results reviewed and discussed with patient today in the office -patient is about target range 77% of the time with no low -recommend patient increase her basaglar to 18 units daily and continue to monitor blood sugars -follow up in [address] Nciole and bring log of blood sugars to [...] to appt. 10/26/2017 Appointment: Claudia Pruitt WPtel: [phone] [phone] [place] (15 min) Moderate 10/26/2017 Patient [...] of plan. 10/11/2017 Appointment: Claudia Pruitt WPtel: [phone] [place] (30 min) Complex 10/11/2017 Patient Education: Patient Medication Summary Completed 10/11/2017 Visit Plan: Diabetes Mellitus - Unc ontrolled - per recent FSBS reports. I have [...] Summary Completed 09/22/2017 Appointment: Mila Nicole WPtel: [phone] [place] (15 min) Moderate 09/13/2017 Appointment: Mila Nicole WPtel: [phone] (15 min) Moderate 09/07/2017 Visit Plan: Diabetes Mellitus - con trolled - per recent FSBS reports. I have [...] becoming uncontrolled. 07/06/2017 Appointment: Mila Nicole WPtel: [phone] [phone] (15 min) Moderate 07/06/2017 Patient Education: Patient Medication Summary Completed 07/06/2017 Appointment: Mila Nicole WPtel: [phone] [phone] (15 min) Moderate 06/07/2017 Visit Plan: Hypertension - well con trolled - continue with current medications, continue with [...] less controlled. 06/03/2017 Appointment: Claudia Pruitt WPtel: [phone] (30 min) Complex 06/03/2017 Patient Education: Patient Medication Summary Completed 06/03/2017 Visit Plan: Anxiety - the patient h as uncontrolled anxiety and will benefit from an SSRI on a daily basis to attempt control of the symptoms of anxiety (tachycardia, overwhelming sensations, stress, insomnia, et c). I also believe that the patient will [...] plan 05/12/2017 Appointment: Gardenia Shah WPtel: [phone] [phone] (30 min) Complex 05/12/2017 Patient Education: Patient Medication Summary Completed 05/12/2017 Visit Plan: Hypertension - well con trolled - continue with current medications, continue with [...] medication. 04/15/2017 [facility]ment: [phone] ([facility] min) Moderate 04/15/2017 Patient Education: Patient Medication Summary Completed 04/15/2017 Visit Plan: Hypertension - well con trolled - continue with current medications, continue with [...] at 10 units daily. 03/19/2017 Appointment: Mila iNcole WPtel: [phone] [facility] (15 min) Moderate 03/19/2017 Patient Education: Patient Medication Summary Completed 03/19/2017 Appointment: Mila Nicole WPtel: [phone] [facility] (15 min) Moderate 02/24/2017 Visit Plan: Diabetes Mellitus - Unc ontrolled - per recent FSBS reports. I have [...] HS 02/03/2017 Appointment: Mila Nicole WPtel: [phone] [phone] (15 min) Moderate 02/03/2017 Patient Education: Patient Medication Summary Completed 02/03/2017 Patient Education: Obesity Completed 02/03/2017 Visit Plan: Anxiety - the patient h as uncontrolled anxiety and will benefit from very low dose of prn benzodiazepine to attempt control of the symptoms of anxiety (tachycardia, overwhelming sensations, stress, insomnia, etc). Pt is [...] Appointment: Gardenia Shah [facility]Ptel[facility] [phone] [facility] (30 min) Complex 01/07/2017 Patient Education: Patient Medication Summary Completed 01/07/2017 Patient Education: Obesity Completed 01/07/2017 Patient Education: Hypertension Completed 01/07/2017 Visit Plan: Diabetes Mellitus - Unc ontrolled - per recent FSBS reports. I have [...] to allow for greater blood glucose control. [id number], 02/2018 junior nordisk 12/17/2016 Appointment: [facility]Ptel[phone] (15 min) Moderate 12/17/2016 Patient Education: Patient Medication Summary Completed 12/17/2016 Patient Education: Obesity Completed 12/17/2016 Appointment: [facility] Niocle [facility]Ptel[phone] [facility] (15 min) Moderate 12/14/2016 Visit Plan: Diabetes Mellitus - con trolled - per recent FSBS reports. I have [...] medications. 09/14/2016 Appointment: [facility]el[phone] [facility] (15 min) Moderate 09/14/2016 Patient Education: Patient Medication Summary Completed 09/14/2016 Patient Education: Obesity Completed 09/14/2016 Patient Education: Hypertension Completed 09/14/2016 Visit Plan: Diabetes Mellitus - con trolled - per recent FSBS reports. I have [...] at home. 06/18/2016 Appointment: Mil[facility] Nicole [facility]Ptel[phone] [facility] [place] (15 min) Moderate 06/18/2016 Patient Education: Patient Medication Summary Completed 06/18/2016 Patient Education: Obesity Completed 06/18/2016 Patient Education: Hypertension Completed 06/18/2016 Visit Plan: Diabetes Mellitus - con trolled - per recent FSBS reports. I have [...] home. 04/16/2016 Appointment: Mila Nicole WPtel: [phone] [phone] (15 min) Moderate 04/16/2016 Patient Education: Patient Medication Summary Completed 04/16/2016 Patient Education: Obesity Completed 04/16/2016 Patient Education: Hypertension Completed 04/16/2016 Visit Plan: Diabetes Mellitus - con trolled - per recent FSBS reports. I have [...] gabapentin 03/19/2016 Appointment: [facility]Ptel[phone] (15 min) Moderate 03/19/2016 Patient Education: Patient Medication Summary Completed 03/19/2016 Patient Education: Obesity Completed 03/19/2016 Patient Education: Hypertension Completed 03/19/2016 Visit Plan: Diabetes Mellitus - con trolled - per recent FSBS reports. I have [...] home. 11/14/2015 Appointment: [facility]Ptel[phone] (15 min) Moderate 11/14/2015 Patient Education: Patient Medication Summary Completed 11/14/2015 Patient Education: Obesity Completed 11/14/2015 Patient Education: Hypertension Completed 11/14/2015 Visit Plan: Diabetes Mellitus - con trolled - per recent FSBS reports. I have [...] Completed 08/14/2015 Visit Plan: Hypertension - well con trolled - continue with current medications, continue with [...] Hgba1c 07/17/2015 Appointment: [facility]Ptel[phone] (15 min) Moderate 07/17/2015 Patient Education: [...] Completed 03/25/2015 Appointment: [facility]Ptel[phone] [facility] (15 min) Moderate 01/14/2015 Visit Plan: Diabetes Mellitus - con trolled - per recent FSBS reports. I have [...] control. 12/04/2014 Appointment: [facility]Ptel[phone] (15 min) Moderate 12/04/2014 Patient Education: Patient Medication Summary Completed 12/04/2014 Patient Education: Hypertension Completed 12/04/2014 Visit Plan: Hypertension - uncontro lled - the patient's medications have been modified as documented in the visit note. The patient has been counseled to cut back on salt in diet for a no added salt diet, low fat d iet, start an exercise program with low weight [...] glucose control. 08/14/2014 Appointment: Mila Nicole WPtel: [facility] [place] ([place] New Patient 08/14/2014 Patient [...] medication. . Hypertension - well controlled - karin nue with current medications, continue with no added [...] change the Entresto medication. cut back on carbohyd rates in food - cut pasta, rice, potato [...] to allow for greater blood glucose control. [id number], 02/2018 junior nordisk CHECK LABS AND UA XRAY LUMBAR . Low back pain-xray lumbar spine Dysuria- improved-will culture urine [id number]-xa changes today . Hypertension - wel l controlled - continue with current medications, continue [...] results. Patient verbalized understanding of plan. . RUQ pain, generali zed abdominal pain - ongoing, intermittent - will check labs and CT scan due to the pains severity and persistence - pt is to notify clinic if symptoms change, or with any changes, questions, or concerns. . RUQ pain, generali zed abdominal pain - ongoing, intermittent - will check labs and CT scan due to the pains severity and persistence - pt is to notify clinic if symptoms change, or with any changes, questions, or concerns. . Hypertension - wel l controlled - continue with current medications, continue [...] are doing. . Diabetes Mellitus -IPRO results review ed and discussed with patient today in the office -patient is about target range 77% of the time with no low -recommend patient increase her basaglar to 18 units daily and continue to monitor blood sugars -follow up in [address] Nicole and bring log of blood sugars to appt. INCREASE BASAGLAR TO 18 UNITS DAILY . Diabetes Mellitus -IPRO results review ed and discussed with patient today in the office -patient is about target range 77% of the time with no low -recommend patient increase her basaglar to 18 units daily and continue to monitor blood sugars -follow up in [address] Nicole and bring log of blood sugars to appt. tylenol 2 pills thre e times daily x 5 days left wrist [...] if any worse On 02/07/17 - stop t he Victoza On 02/08/17 - start on lantus [...] . Diabetes Mellitus - controlled - per r ecent FSBS reports. I have recommended for the [...] No change in current medications. Decrease victoza walter k to your previous dose of 1.2. xanax [...] anxiety (tachycardia, overwhelming sensations, stress, insomnia, etc). Pt is [...] pressure readings at home. . Hypertension - wel l controlled - continue with current medications, continue [...] - continue with gabapentin . Right upper abdomi nal pain radiating to the back - I [...] continue with current regimen. Monitor your blood p ressure at home and record. Bring in your readings to your next appointment, or as directed. Call for chest pain, shortness of breath, headaches, or other concerns. look on drug plan - for the following diabetic medications bydureon (weekly shot) victoza (daily shot) byetta (twice daily shot) tanzeum (weekly shot) . Hypertension - uncontrolled - the bryan ent's medications have been modified as documented in [...] blood glucose control. . Anxiety - the bryan ent has uncontrolled anxiety and will benefit from [...] gabapentin for back pain. . Hypertension - wel l controlled - continue with current medications, continue [...]
--- OUTSIDE RECORDS SUMMARY | 2019-03-16 19:23 | XMS REPORT | CCD ---
Author Author Melinda Nicole Organization Mila Nicole MD, [facility] Address [address] [place] [address] Phone Care Team Providers Care Vacation Planner Name Role Phone PP Unavailable CCM Unavailable Summary Purpose Interface Exchange Insurance Providers Payer name Policy type / Coverage type Covered constitution party ID Effective Begin Date Effective End Date WPS Medicare Part B Medicare Part B [id number] Unknown AARP Medicare Part B [id number] Unknown Family history Mother Diagnosis Age At [...] Unknown 3 08/14/[address]: 020068691 Never smoker 08/14/[address]: 249545028 Never drinks alcohol 08/14/2014 Allergies, Adverse Reactions, Alerts Substance Reaction Codes Entered Date Inactivated Date Status * OTHER REACTION - S EE ANSWER BOX Invokana, Victoza Unknown 03/19/2017 No Inactive Date Active Paxil has blurred vision RxNorm: 481486 08/14/2014 No Inactive Date Active Lipitor RxNorm: 58997 08/14/2014 No Inactive Date Active Past Medical [...] Date Stop Date Sta tus Fill Instructions gabapentin 600 mg ta blet RxNorm: 426473 1 Capsule(s) PO TID 10/05/2018 04/02/2019 Active Basaglar KwikPen U-1 00 Insulin 100 unit/mL (3 mL) subcutaneous RxNorm: 7332848 INJECT 20 UNITS UNDER THE SKIN ONCE DAILY 09/26/2018 02/22/2019 Active Basaglar KwikPen U-1 00 Insulin 100 unit/mL (3 mL) subcutaneous RxNorm: 5125444 INJECT 20 UNITS UNDER THE SKIN ONCE DAILY 05/25/2018 09/25/2018 Inactive digoxin 250 mcg tablet RxNorm: 318960 0.25 MG PO DAILY 05/13/2018 No Stop Date Active Flagyl 500 mg tablet RxNorm: 544365 1 Tablet(s) PO TID 05/05/2018 05/14/2018 Inactive Flagyl 500 mg tablet RxNorm: 943204 1 Tablet(s) PO TID 05/05/2018 05/04/2018 Inactive Zetia 10 mg tablet RxNorm: 697416 1 Tablet(s) PO daily 03/28/2018 03/22/2019 Active tramadol 50 mg tablet RxNorm: 189066 1 Tablet(s) PO TID as needed 03/25/2018 No Stop Date Active fluticasone 50 mcg/a ctuation nasal spray,suspension RxNorm: 7859199 INSTILL ONE SPRAY IN EACH NOSTRILTWICE A DAY 03/16/2018 10/11/2018 Active Generic For:FLONASE SPR 0.05% 03/16/2018 8:50:59 AM Keflex 500 mg capsule RxNorm: 481828 1 Capsule(s) PO TID 02/11/2018 02/10/2018 Inactive Keflex 500 mg capsule RxNorm: 449012 1 Capsule(s) PO TID 02/11/2018 02/20/2018 Inactive metoprolol succinate ER 200 mg tablet,extended release 24 hr RxNorm: 822497 1 Tablet(s) PO daily 01/27/2018 No Stop Date Active Eliquis 2.5 mg tablet RxNorm: 0082477 1 Tablet(s) PO BID 01/27/2018 No Stop Date Active digoxin 125 mcg tablet RxNorm: 986584 1 Tablet(s) PO daily 01/27/2018 No Stop Date Active Basaglar KwikPen U-1 00 Insulin 100 unit/mL (3 mL) subcutaneous RxNorm: 6832718 20 Unit(s) SQ daily 11/25/2017 05/23/2018 Inactive UPDATE RX metformin 500 mg tablet RxNorm: 949621 1 Tablet(s) PO UD 1.5 in morning, noon a nd 1 at bedtime 10/28/2017 10/22/2018 Active Basaglar KwikPen U-1 00 Insulin 100 unit/mL (3 mL) subcutaneous RxNorm: 6504241 18 Unit(s) SQ daily 10/26/2017 11/24/2017 Inactive UPDATE RX levothyroxine 50 mcg tablet RxNorm: 551408 TAKE 1 TABLET BY MOUT H ONCE DAILY 10/15/2017 06/11/2018 In active Generic For:SYNTHROID 50MCG TAB 018 9:59:00 AM escitalopram 10 mg t ablet RxNorm: 873727 1 Tablet(s) PO QPM 09/22/2017 09/16/2018 Inactive Generic For:LEXAPRO 5MG 01/07/2017 9:05 :43 AM Basaglar KwikPen U-1 00 Insulin 100 unit/mL (3 mL) subcutaneous RxNorm: 7457234 15 Unit(s) SQ daily 09/22/2017 10/25/2017 Inactive potassium chloride E R 20 mEq tablet,extended release RxNorm: 959433 1 Tablet(s) PO daily 06/22/2017 01/17/2018 Inactive Lantus Solostar U-10 0 Insulin 100 unit/mL (3 mL) subcutaneous pen RxNorm: 312181 10 Unit(s) SQ daily 06/08/2017 06/08/2017 Inactive Basaglar KwikPen U-1 00 Insulin 100 unit/mL (3 mL) subcutaneous RxNorm: 6986862 10 Unit(s) SQ daily 06/08/2017 06/07/2017 Inactive Nino Escamilla U-1 00 Insulin 100 unit/mL (3 mL) subcutaneous RxNorm: 3870504 10 Unit(s) SQ daily 06/08/2017 09/21/2017 Inactive Lexapro 5 mg tablet RxNorm: 982886 1 Tablet(s) PO daily 06/01/2017 11/27/2017 Inactive Lexapro 5 mg tablet RxNorm: 008803 1 Tablet(s) PO daily 05/12/2017 05/31/2017 Inactive bisoprolol 5 mg-hydr ochlorothiazide 6.25 mg tablet RxNorm: 072069 1 Tablet(s) PO BID 05/04/2017 06/02/2017 Inactive Keflex 500 mg capsule RxNorm: 194206 1 Capsule(s) PO QID 04/15/2017 04/21/2017 Inactive Lantus Solostar 100 unit/mL (3 mL) subcutaneous insulin pen RxNorm: 650749 10 Unit(s) SQ daily 02/03/2017 06/07/2017 Inactive levothyroxine 50 mcg tablet RxNorm: 446775 TAKE 1 TABLET BY MOUT H ONCE DAILY 02/01/2017 09/28/2017 In active Generic For:SYNTHROID 50MCG TAB 017 9:20:59 AM gabapentin 600 mg ta blet RxNorm: 141464 1 Capsule(s) PO TID 01/27/2017 01/21/2018 Inactive Lexapro 5 mg tablet RxNorm: 767232 TAKE 1 TABLET BY MOUTH AT BEDTIME 01/07/2017 09/21/2017 In active Generic For:LEXAPRO 5MG 01/07/2017 9:05 :43 AM Victoza 2-Dariusz 0.6 mg /0.1 mL (18 mg/3 mL) subcutaneous pen injector RxNorm: 999625 1.8 Milligram(s) SQ daily 12/17/2016 02/07/2017 Inactive Victoza 3-Dariusz 0.6 mg /0.1 mL (18 mg/3 mL) subcutaneous pen injector RxNorm: 105549 Milligram(s) SQ 12/17/2016 02/07/2017 Inactive Zetia 10 mg tablet RxNorm: 927715 1 Tablet(s) PO daily 11/17/2016 11/11/2017 Inactive fluticasone 50 mcg/a ctuation nasal spray,suspension RxNorm: 7272607 [place] NASAL ONE SPRAY IN EACH NOSTRIL TWICE DAILY 09/28/2016 04/25/2017 Inactive Victoza 2-Dariusz 0.6 mg /0.1 mL (18 mg/3 mL) subcutaneous pen injector RxNorm: 313839 1.2 Milligram(s) SQ daily 09/14/2016 12/16/2016 Inactive Lexapro 5 mg tablet RxNorm: 286972 1 Tablet(s) PO QHS 09/14/2016 12/12/2016 Inactive metformin 500 mg tablet RxNorm: 919887 1 Tablet(s) PO UD 1.5 in morning, noon a nd 1 at bedtime 09/08/2016 09/02/2017 Inactive glimepiride 4 mg tablet RxNorm: 322363 TAKE 1 TABLET BY MOUTH ONCE DAILY 07/31/2016 09/13/2016 In active Generic For:*AMARYL 4MG 07/31/2016 9:02 :38 AM Victoza 2-Dariusz 0.6 mg /0.1 mL (18 mg/3 mL) subcutaneous pen injector RxNorm: 161221 1.2 Milligram(s) SQ daily 05/18/2016 09/13/2016 Inactive Victoza 2-Dariusz 0.6 mg /0.1 mL (18 mg/3 mL) subcutaneous pen injector RxNorm: 373904 1.2 Milligram(s) SQ daily 04/16/2016 05/17/2016 Inactive levothyroxine 50 mcg tablet RxNorm: 165322 TAKE 1 TABLET BY MOUT H ONCE DAILY 04/08/2016 12/03/2016 In active Generic For:SYNTHROID 50MCG TAB 017 9:05:40 AM levothyroxine 50 mcg tablet RxNorm: 005598 1 Tablet(s) PO daily TAKE 1 TABLET BY MOUTH ONCE DAILY 04/08/2016 12/03/2016 Inactive Generic For:SYNTHROID 50MCG TAB N O T I C E PRESCRIPTION PREVIOUSLY AUTHORIZED BY DOCTOR:HENRY BAIG bisoprolol 5 mg-hydr ochlorothiazide 6.25 mg tablet RxNorm: 056329 1 Tablet(s) PO BID 03/23/2016 03/17/2017 Inactive Victoza 2-Dariusz 0.6 mg /0.1 mL (18 mg/3 mL) subcutaneous pen injector RxNorm: 472855 0.6 Milligram(s) SQ daily 03/19/2016 04/15/2016 Inactive Lexapro 5 mg tablet RxNorm: 002874 1 Tablet(s) PO QHS 03/19/2016 06/16/2016 Inactive gabapentin 600 mg ta blet RxNorm: 731105 1 Capsule(s) PO TID 03/19/2016 01/26/2017 Inactive glimepiride 4 mg tablet RxNorm: 676499 1 Tablet(s) PO daily 12/09/2015 06/05/2016 Inactive Victoza 3-Dariusz 0.6 mg /0.1 mL (18 mg/3 mL) subcutaneous pen injector RxNorm: 489325 0.6 Milligram(s) SQ daily x2 weeks, then 1.2 mg SQ daily 12/02/2015 03/18/2016 Inactive metformin 500 mg tablet RxNorm: 040103 1 Tablet(s) PO UD 1.5 in morning, noon a nd 1 at bedtime 08/14/2015 08/07/2016 Inactive gabapentin 600 mg ta blet RxNorm: 373110 1 Capsule(s) PO TID S HE IS ONLY TAKING 1 QD 08/14/2015 03/18/2016 In active fluticasone 50 mcg/a ctuation nasal spray,suspension RxNorm: 298743 [place] NASAL ONE SPRAY IN EACH NOSTRIL TWICE DAILY 07/26/2015 07/25/2015 Inactive fluticasone 50 mcg/a ctuation nasal spray,suspension RxNorm: 8539699 [place] NASAL ONE SPRAY IN EACH NOSTRIL TWICE DAILY 07/26/2015 02/20/2016 Inactive bisoprolol 5 mg-hydr ochlorothiazide 6.25 mg tablet RxNorm: 768262 1 Tablet(s) PO daily 1 Tablet(s) PO BID 07/17/2015 01/12/2016 Inactive metformin 500 mg tablet RxNorm: 617347 1 Tablet(s) PO TID 1 Tablet(s) PO TID 07/17/2015 08/13/2015 In active Diflucan 100 mg tablet RxNorm: 548285 1 Tablet(s) PO daily 07/17/2015 07/21/2015 Inactive Zetia 10 mg tablet RxNorm: 025485 1 Tablet(s) PO daily 06/10/2015 06/03/2016 Inactive bisoprolol 5 mg-hydr ochlorothiazide 6.25 mg tablet RxNorm: 935147 1 Tablet(s) PO BID 04/18/2015 07/16/2015 Inactive metformin 500 mg tablet RxNorm: 695684 1 Tablet(s) PO TID 03/01/2015 06/28/2015 Inactive glimepiride 4 mg tablet RxNorm: 729760 1 Tablet(s) PO daily 01/31/2015 01/30/2015 Inactive levothyroxine 50 mcg tablet RxNorm: 916801 TAKE 1 TABLET BY MOUT H ONCE DAILY 01/31/2015 09/27/2015 In active Generic For:SYNTHROID 50MCG TAB N O T I C E PRESCRIPTION PREVIOUSLY AUTHORIZED BY DOCTOR:HENRY BAIG glimepiride 4 mg tablet RxNorm: 943313 1 Tablet(s) PO daily 01/31/2015 07/29/2015 Inactive Invokana 100 mg tablet RxNorm: 0441706 1 Tablet(s) PO daily 12/12/2014 07/16/2015 Inactive bisoprolol 5 mg-hydr ochlorothiazide 6.25 mg tablet RxNorm: 372963 1 Tablet(s) PO BID 08/27/2014 02/22/2015 Inactive metformin 500 mg tablet RxNorm: 913607 1 Tablet(s) PO TID 08/10/2014 12/07/2014 Inactive metformin 500 mg tablet RxNorm: 746136 1 Tablet(s) PO TID 08/10/2014 08/09/2014 Inactive Fish Oil 1,000 mg ca psule RxNorm: 1 Capsule(s) PO daily No Start Date Active Protonix 40 mg table t,delayed release RxNorm: 863178 1 Tablet(s) PO QAM No Start Date Active furosemide 40 mg tablet RxNorm: 250637 1 Tablet(s) PO daily No Start Date Active pen needle, diabetic 31 gauge x 1/6" RxNorm: Miscellaneous N o Start Date Active Elavil 25 mg tablet RxNorm: 166588 1 Tablet(s) PO QPM No Start Date Active nitroglycerin 0.4 mg sublingual tablet RxNorm: 653129 1 Tablet(s) SL as nee ded chest pain No Start Date Active amlodipine 5 mg tablet RxNorm: 243667 1 Tablet(s) PO daily No Start Date Active Entresto 24 mg-26 mg tablet RxNorm: 4982460 1 Tablet(s) PO BID No Start Date Active aspirin 81 mg chewab le tablet RxNorm: 148189 1 Tablet(s) PO daily No Start Date 06/02/2017 Inactive Eliquis 5 mg tablet RxNorm: 6453049 1 Tablet(s) PO BID No Start Date 01/26/2018 Inactive bisoprolol-hydrochlo rothiazide oral RxNorm: [address] art Date 08/26/2014 Inactive levothyroxine 50 mcg tablet RxNorm: 412938 1 Tablet(s) PO daily No Start Date 01/30/2015 Inactive potassium chloride E R 20 mEq tablet,extended release RxNorm: 858342 1 Tablet(s) PO daily No Start Date 06/21/2017 Inactive digoxin 250 mcg tablet RxNorm: 026349 1 Tablet(s) PO daily No Start Date 01/26/2018 Inactive Invokana 100 mg tablet RxNorm: 6477636 1 Tablet(s) PO daily No Start Date 12/11/2014 Inactive tramadol 50 mg tablet RxNorm: 017811 1 Tablet(s) PO TID as needed No Start Date 03/22/2018 Inactive Victoza 3-Dariusz 0.6 mg /0.1 mL (18 mg/3 mL) subcutaneous pen injector RxNorm: 312582 0.6 Milligram(s) SQ daily x2 weeks, then 1.2 mg SQ daily No Start Date 12/01/2015 Inactive Effient 10 mg tablet RxNorm: 423373 1 Tablet(s) PO QAM No Start Date 01/26/2018 Inactive Zetia 10 mg tablet RxNorm: 705650 1 Tablet(s) PO BID No Start Date 03/18/2016 Inactive metoprolol succinate ER 100 mg tablet,extended release 24 hr RxNorm: 844597 1 Tablet(s) PO daily No Start Date 01/26/2018 Inactive gabapentin 300 mg ca psule RxNorm: 438916 1 Capsule(s) PO BID No Start Date 08/13/2015 Inactive Lasix 40 mg tablet RxNorm: 582694 1 Tablet(s) PO BID No Start Date 04/14/2017 Inactive Coreg 3.125 mg tablet RxNorm: 552275 1 Tablet(s) PO BID with meals No [...] 04/15/2017 stress test and then shipped to [facility] Follow Up 03/19/2017 stress test and then shipped to [place] diabetes mellitus 02/03/2017 headache 01/07/2017 diabetes mellitus 12/17/2016 diabetes mellitus 09/14/2016 diabetes mellitus 06/18/2016 medication follow up 04/16/2016 back pain 03/19/2016 back pain 11/14/2015 back pain 08/14/2015 diabetes mellitus 07/17/2015 Hospital Follow Up 03/25/2015 diabetes mellitus 12/04/2014 diabetes mellitus 08/14/2014 Results Observation Observation Code Item Item Code Result Date Human Epididymis Protein 4 539059 HE4 97.4 PMOL/L 06/06/2018 Cancer Antigen (CA) 125 258869 CANCER ANTIGEN (CA) 125 13.0 U/ML 06/06/2018 Culture Urine [id number] URI NE CULTURE SEE NOTES 02/28/2018 Urine [...] 28.8 pg 02/24/2018 Cbc With Differential Ord2 [place]% 5.7 % 02/24/2018 Cbc With Differential Ord2 [...] 1.57 K/ul 02/24/2018 Cbc With Differential Ord2 [place] ABS# 0.4 K/ul 02/24/2018 Cbc With Differential Ord2 Eos ABS# 0.1 K/ul 02/24/2018 Cbc With Differential Ord2 Baso ABS# 0.0 K/ul 02/24/2018 Comp Metabolic Xzc504 NA 138 mEq/L 02/24/2018 Comp Metabolic Ugf109 K 4.4 mEq/L 02/24/2018 Comp Metabolic Mol523 CL 100 mEq/L 02/24/2018 Comp Metabolic Ljr706 CO2 27.0 mEq/L 02/24/2018 Comp Metabolic Xwq437 AN ION GAP 15 02/24/2018 Comp Metabolic Rlm716 GL UCOSE 98 mg/dL 02/24/2018 Comp Metabolic Wfc626 Cr eat 1.0 mg/dL 02/24/2018 Comp Metabolic Tbt696 eG FR 55 ml/min/1.73m2 02/24 Comp Metabolic Ydj742 BUN 25 mg/dL 02/24/2018 Comp Metabolic San401 B/ C Ratio 24.3 Ratio 02/24/2018 Comp Metabolic Ldh730 CA LCIUM 9.4 mg/dL 02/24/2018 Comp Metabolic Saq750 AL K PHOS 46 U/L 02/24/2018 Comp Metabolic Vsm979 T(SGOT) 13 U/L 02/24/2018 Comp Metabolic Pvv776 AL T(SGPT) 12 U/L 02/24/2018 Comp Metabolic Lqi604 BI LI T 0.4 mg/dL 02/24/2018 Comp Metabolic Tlf624 AL BUMIN 4.5 g/dL 02/24/2018 Comp Metabolic Keh928 TP RO 6.6 g/dL 02/24/2018 Comp Metabolic Pfo164 GL OB 2.1 g/dL 02/24/2018 Comp Metabolic Lro047 A/ G Ratio 2.1 Ratio 02/24/2018 Comp Metabolic Qpx985 Os mo 280 mOsmo 02/24/2018 Culture Urine [id number] URI NE CULTURE SEE NOTES 02/11/2018 Culture Urine [id number] Con tinued Results 02/11/2018 Urine Culture Ucult Comp lete >100,000 col/ml aerobic grow th sent to ref lab 02/08/2018 %Hba1C Ktx246 % HbA1c 64440-5 6.8 % 01/12/2018 %Hba1C Vtq195 Gluc Ave 148 mg/dL 01/12/2018 Metabolic Ord15 [...] 28.6 pg 01/11/2018 Cbc With Differential Ord2 [place]% 7.8 % 01/11/2018 Cbc With Differential Ord2 [...] 1.70 K/ul 01/11/2018 Cbc With Differential Ord2 [place] ABS# 0.4 K/ul 01/11/2018 Cbc With Differential Ord2 Eos ABS# 0.1 K/ul 01/11/2018 Cbc With Differential Ord2 Baso ABS# 0.0 K/ul 01/11/2018 Magnesium Ord90 Mag 1.7 mg/dL 01/11/2018 Test(s) Not Perfromed [id number] Test(s) Not Performed Test(s) Not Performed. See Below: 09/20/2017 Test(s) Not Perfromed [id number] TEST NAME BNP 09/20/2017 Test(s) Not Perfromed [id number] Rejection Reason Patient Refused due to lack of coving diganosis 09/20/2017 Test(s) Not Perfromed [id number] COMMENT Dorita Notified 11/2017 Test(s) Not Perfromed [id number] Bank Credit Card Collection Clerk Miguel Mclaughlin 09/20/2017 B Type Natriuretic Peptide Roh5206 B-INTERVENTIONAL RADIOLOGY RN 889.00 pg/ml 8 Cbc With Differential Ord2 [...] 28.9 pg 09/20/2017 Cbc With Differential Ord2 [place]% 5.6 % 09/20/2017 Cbc With Differential Ord2 [...] 1.68 K/ul 09/20/2017 Cbc With Differential Ord2 [place] ABS# 0.3 K/ul 09/20/2017 Cbc With Differential Ord2 Eos ABS# 0.1 K/ul 09/20/2017 Cbc With Differential Ord2 Baso ABS# 0.0 K/ul 09/20/2017 %Hba1C Pvm419 % HbA1c 95407-4 7.9 % 09/20/2017 %Hba1C Nsm541 Gluc Ave 180 mg/dL 09/20/2017 Magnesium Ord90 [...] 28.3 pg 07/07/2017 Cbc With Differential Ord2 [place]% 7.9 % 07/07/2017 Cbc With Differential Ord2 [...] 1.34 K/ul 07/07/2017 Cbc With Differential Ord2 [place] ABS# 0.4 K/ul 07/07/2017 Cbc With Differential Ord2 Eos ABS# 0.1 K/ul 07/07/2017 Cbc With Differential Ord2 Baso ABS# 0.0 K/ul 07/07/2017 Comp Metabolic Edn778 NA 142 mEq/L 07/07/2017 Comp Metabolic Dsd237 K 4.3 mEq/L 07/07/2017 Comp Metabolic Azy233 CL 105 mEq/L 07/07/2017 Comp Metabolic Kuh949 CO2 28.0 mEq/L 07/07/2017 Comp Metabolic Ujt609 AN ION GAP 13 07/07/2017 Comp Metabolic Lpm655 GL UCOSE 197 mg/dL 07/07/2017 Comp Metabolic Mmh122 Cr eat 1.1 mg/dL 07/07/2017 Comp Metabolic Khb954 eG FR 51 ml/min/1.73m2 07/07 Comp Metabolic Xjv172 BUN 21 mg/dL 07/07/2017 Comp Metabolic Kbe365 B/ C Ratio 18.9 Ratio 07/07/2017 Comp Metabolic Bgc410 CA LCIUM 8.9 mg/dL 07/07/2017 Comp Metabolic Wub364 AL K PHOS 51 U/L 07/07/2017 Comp Metabolic Oev751 T(SGOT) 11 U/L 07/07/2017 Comp Metabolic Pxa262 AL T(SGPT) 11 U/L 07/07/2017 Comp Metabolic Hho532 BI LI T 0.3 mg/dL 07/07/2017 Comp Metabolic Uqc456 AL BUMIN 4.2 g/dL 07/07/2017 Comp Metabolic Gbz265 TP RO 6.0 g/dL 07/07/2017 Comp Metabolic Psa370 GL OB 1.8 g/dL 07/07/2017 Comp Metabolic Ues383 A/ G Ratio 2.3 Ratio 07/07/2017 Comp Metabolic Huf073 Os mo 292 mOsmo 07/07/2017 Digoxin Ord9 DIGOXIN 1.3 NG/ML 07/07/2017 Tsh Ord6 TSH (3rd IS) 2.19 uIU/mL 07/07/2017 B Type Natriuretic Peptide Lvm0712 B-INTERVENTIONAL RADIOLOGY RN 801.00 pg/ml 8 Culture Urine [id number] URI NE CULTURE SEE NOTES 04/19/2017 Culture Urine [id number] Con tinued Results 04/19/2017 Urine Culture Ucult Comp lete >100,000 col/ml aerobic grow th sent to ref lab 04/16/2017 Comp Metabolic Pzt660 NA 140 mEq/L 01/26/2017 Comp Metabolic Imu671 K 4.6 mEq/L 01/26/2017 Comp Metabolic Fdj600 CL 102 mEq/L 01/26/2017 Comp Metabolic Yii024 CO2 28.0 mEq/L 01/26/2017 Comp Metabolic Ycr540 AN ION GAP 15 01/26/2017 Comp Metabolic Aei472 GL UCOSE 173 mg/dL 01/26/2017 Comp Metabolic Iyp688 Cr eat 1.0 mg/dL 01/26/2017 Comp Metabolic Fvb143 eG FR 56 ml/min/1.73m2 01/26 Comp Metabolic Dih631 BUN 23 mg/dL 01/26/2017 Comp Metabolic Jva900 B/ C Ratio 22.5 Ratio 01/26/2017 Comp Metabolic Rnx292 CA LCIUM 9.4 mg/dL 01/26/2017 Comp Metabolic Cdq284 AL K PHOS 52 U/L 01/26/2017 Comp Metabolic Nyk773 T(SGOT) 12 U/L 01/26/2017 Comp Metabolic Ixt833 AL T(SGPT) 12 U/L 01/26/2017 Comp Metabolic Vpv194 BI LI T 0.5 mg/dL 01/26/2017 Comp Metabolic Iqa039 AL BUMIN 4.4 g/dL 01/26/2017 Comp Metabolic Oia777 TP RO 6.5 g/dL 01/26/2017 Comp Metabolic Bgk314 GL OB 2.1 g/dL 01/26/2017 Comp Metabolic Zvc388 A/ G Ratio 2.1 Ratio 01/26/2017 Comp Metabolic Vxw637 Os mo 287 mOsmo 01/26/2017 Cbc With [...] 29.2 pg 01/26/2017 Cbc With Differential Ord2 [place]% 4.9 % 01/26/2017 Cbc With Differential Ord2 [...] 1.75 K/ul 01/26/2017 Cbc With Differential Ord2 [place] ABS# 0.4 K/ul 01/26/2017 Cbc With Differential Ord2 Eos ABS# 0.1 K/ul 01/26/2017 Cbc With Differential Ord2 Baso ABS# 0.0 K/ul 01/26/2017 %Hba1C Aip544 % HbA1c 43254-2 7.8 % 01/26/2017 %Hba1C Vrm056 Gluc Ave 177 mg/dL 01/26/2017 Lipid Ord30 CHOL 239 mg/dL 01/26/2017 Lipid Ord30 HDL 40.0 mg/dl 01/26/2017 Lipid Ord30 TRIG 325 mg/dL 01/26/2017 Lipid Ord30 LDL 134 mg/dL 01/26/2017 Lipid Ord30 C/HDL 6.0 Ratio 01/26/2017 Free T4 Ctt139 FREE T4 0.95 ng/dL 01/26/2017 Tsh Ord6 [...] Metabolic Ord15 CALCIUM 9.0 mg/dL 09/08/2016 %Hba1C Zgs543 % HbA1c 68882-8 7.5 % 09/08/2016 %Hba1C Skl965 Gluc Ave 169 mg/dL 09/08/2016 Tsh Ord6 hTSH II 2.64 uIU/mL 03/13/2016 %Hba1C Gwl313 % HbA1c 21933-1 8.2 % 03/13/2016 %Hba1C Ueh432 Gluc Ave 189 mg/dL 03/13/2016 Lipid Ord30 CHOL 233 mg/dL 03/13/2016 Lipid Ord30 HDL 46.0 mg/dl 03/13/2016 Lipid Ord30 TRIG 276 mg/dL 03/13/2016 Lipid Ord30 LDL 132 mg/dL 03/13/2016 Lipid Ord30 C/HDL 5.1 Ratio 03/13/2016 Free T4 Amb531 FREE T4 0.94 ng/dL 03/13/2016 Cbc With [...] 30.3 pg 03/13/2016 Cbc With Differential Ord2 [place]% 6.1 % 03/13/2016 Cbc With Differential Ord2 [...] 1.63 K/ul 03/13/2016 Cbc With Differential Ord2 [place] ABS# 0.3 K/ul 03/13/2016 Cbc With Differential Ord2 Eos ABS# 0.1 K/ul 03/13/2016 Cbc With Differential Ord2 Baso ABS# 0.0 K/ul 03/13/2016 Comp Metabolic Fxq117 NA 139 mEq/L 03/13/2016 Comp Metabolic Bpo538 K 4.3 mEq/L 03/13/2016 Comp Metabolic Epg621 CL 103 mEq/L 03/13/2016 Comp Metabolic Fpv901 CO2 28.0 mEq/L 03/13/2016 Comp Metabolic Jrn855 AN ION GAP 12 03/13/2016 Comp Metabolic Xbl791 GL UCOSE 200 mg/dL 03/13/2016 Comp Metabolic Aws569 Cr eat 0.9 mg/dL 03/13/2016 Comp Metabolic Qaw421 eG FR 69 ml/min/1.73m2 03/13 Comp Metabolic Ylx501 BUN 19 mg/dL 03/13/2016 Comp Metabolic Wpu644 B/ C Ratio 22.4 Ratio 03/13/2016 Comp Metabolic Cdb968 CA LCIUM 9.0 mg/dL 03/13/2016 Comp Metabolic Qlk143 AL K PHOS 57 U/L 03/13/2016 Comp Metabolic Jzb146 T(SGOT) 13 U/L 03/13/2016 Comp Metabolic Rwf910 AL T(SGPT) 16 U/L 03/13/2016 Comp Metabolic Wsr262 BI LI T 0.4 mg/dL 03/13/2016 Comp Metabolic Uzv925 AL BUMIN 4.2 g/dL 03/13/2016 Comp Metabolic Tvg713 TP RO 6.3 g/dL 03/13/2016 Comp Metabolic Eup814 GL OB 2.1 g/dL 03/13/2016 Comp Metabolic Rff566 A/ G Ratio 2.0 Ratio 03/13/2016 Comp Metabolic Ytp903 Os mo 285 mOsmo 03/13/2016 %Hba1C Dzw624 % HbA1c 48865-8 8.3 % 11/14/2015 %Hba1C Mcj198 Gluc Ave 192 mg/dL 11/14/2015 Lipid Ord30 CHOL 210 mg/dL 07/19/2015 Lipid Ord30 HDL 43.0 mg/dl 07/19/2015 Lipid Ord30 TRIG 311 mg/dL 07/19/2015 Lipid Ord30 LDL 105 mg/dL 07/19/2015 Lipid Ord30 C/HDL 4.9 Ratio 07/19/2015 %Hba1C Tca760 % HbA1c 06766-1 7.6 % 07/19/2015 %Hba1C Gjh058 Gluc Ave 171 mg/dL 07/19/2015 Cbc With [...] 28.8 pg 07/19/2015 Cbc With Differential Ord2 [place]% 6.1 % 07/19/2015 Cbc With Differential Ord2 [...] 1.63 K/ul 07/19/2015 Cbc With Differential Ord2 [place] ABS# 0.3 K/ul 07/19/2015 Cbc With Differential Ord2 Eos ABS# 0.1 K/ul 07/19/2015 Cbc With Differential Ord2 Baso ABS# 0.0 K/ul 07/19/2015 Cbc With Differential Ord2 New Analyzer Notice Please note new ref ranges s tarting 03-27-2015 due to implemntation of new five part differential hematolgy analyzer. 07/19/2015 Comp Metabolic Qwi336 NA 138 mEq/L 07/19/2015 Comp Metabolic Rso741 K 4.3 mEq/L 07/19/2015 Comp Metabolic Bzr187 CL 100 mEq/L 07/19/2015 Comp Metabolic Fqv033 CO2 33.0 mEq/L 07/19/2015 Comp Metabolic Net238 AN ION GAP 9 07/19/2015 Comp Metabolic Gom261 GL UCOSE 149 mg/dL 07/19/2015 Comp Metabolic Tqd296 Cr eat 0.9 mg/dL 07/19/2015 Comp Metabolic Hgj673 eG FR 62 ml/min/1.73m2 07/18 Comp Metabolic Aoi911 BUN 19 mg/dL 07/19/2015 Comp Metabolic Ept563 B/ C Ratio 20.2 Ratio 07/19/2015 Comp Metabolic Jgz906 CA LCIUM 9.5 mg/dL 07/19/2015 Comp Metabolic Zkg814 AL K PHOS 52 U/L 07/19/2015 Comp Metabolic Bhc645 T(SGOT) 15 U/L 07/19/2015 Comp Metabolic Tsh171 AL T(SGPT) 14 U/L 07/19/2015 Comp Metabolic Kth256 BI LI T 0.5 mg/dL 07/19/2015 Comp Metabolic Gyl053 AL BUMIN 4.4 g/dL 07/19/2015 Comp Metabolic Dnj017 TP RO 6.4 g/dL 07/19/2015 Comp Metabolic Krt318 GL OB 2.0 g/dL 07/19/2015 Comp Metabolic Zew185 A/ G Ratio 2.2 Ratio 07/19/2015 Comp Metabolic Yns975 Os mo 281 mOsmo 07/19/2015 Free T4 Jbw130 FREE T4 0.92 ng/dL 07/19/2015 Tsh Ord6 hTSH II 1.95 uIU/mL 07/19/2015 Microalbumin Unk017 Micr oAlb 0.4 mg/dL 07/19/2015 Comp Metabolic Cfm067 NA 137 mEq/L 12/04/2014 Comp Metabolic Ufl018 K 4.0 mEq/L 12/04/2014 Comp Metabolic Dmo449 CL 100 mEq/L 12/04/2014 Comp Metabolic Esb168 CO2 29.0 mEq/L 12/04/2014 Comp Metabolic Sgd160 AN ION GAP 12 12/04/2014 Comp Metabolic Ulp531 GL UCOSE 171 mg/dL 12/04/2014 Comp Metabolic Vni531 Cr eat 1.0 mg/dL 12/04/2014 Comp Metabolic Pha390 eG FR 60 ml/min/1.73m2 12/04 Comp Metabolic Sii139 BUN 25 mg/dL 12/04/2014 Comp Metabolic Glj742 B/ C Ratio 25.8 Ratio 12/04/2014 Comp Metabolic Gzr145 CA LCIUM 9.4 mg/dL 12/04/2014 Comp Metabolic Xnv729 AL K PHOS 60 U/L 12/04/2014 Comp Metabolic Rgn227 T(SGOT) 13 U/L 12/04/2014 Comp Metabolic Qhn492 AL T(SGPT) 17 U/L 12/04/2014 Comp Metabolic Nqp622 BI LI T 0.4 mg/dL 12/04/2014 Comp Metabolic Xba776 AL BUMIN 4.4 g/dL 12/04/2014 Comp Metabolic Iun277 TP RO 6.9 g/dL 12/04/2014 Comp Metabolic Haq006 GL OB 2.5 g/dL 12/04/2014 Comp Metabolic Gli011 A/ G Ratio 1.8 Ratio 12/04/2014 Comp Metabolic Gmt196 Os mo 282 mOsmo 12/04/2014 Tsh Ord6 hTSH II 1.78 uIU/mL 12/04/2014 %Hba1C Jss878 % HbA1c 19880-0 8.3 % 12/04/2014 %Hba1C Yph535 Gluc Ave 192 mg/dL 12/04/2014 Free T4 Kxf367 FREE T4 0.85 ng/dL 12/04/2014 Lipid Ord30 [...] No mental status change 04/15/2017 Psychiatric anxiety 03/2017 Psychiatric depression 0 04/15/2017 Constitutional recent illness [...] 12/17/2016 Musculoskeletal No myalgias 12/17/2016 Psychiatric anxiety 07/2016 Psychiatric depression 1 Constitutional No recent illness [...] No alteration of consciousness 09/14/2016 Psychiatric anxiety 07/05/2016 Psychiatric depression 0 09/14/2016 Constitutional No recent [...] Date URINALYSIS NONAUTO W /O SCOPE CPT-4: 05839 04/28/2018 URINALYSIS NONAUTO W /O SCOPE CPT-4: 21482 02/24/2018 URINALYSIS NONAUTO W /O SCOPE CPT-4: 65748 02/07/2018 ADMIN INFLUENZA VIRU S VAC CPT-4: G0008 11/25/2017 FLU VAC NO PRSV 4 VA L 3 YRS+ CPT-4: 68172 11/25/2017 GLUC MONITOR CONT PH YS I&R CPT-4: 97628 10/26/2017 GLUCOSE MONITORING CONT CPT-4: 16957 10/11/2017 URINALYSIS NONAUTO W /O SCOPE CPT-4: 68598 04/15/2017 FLU VAC NO PRSV 4 VA L 3 YRS+ CPT-4: 20504 12/17/2016 ADMIN INFLUENZA VIRU S VAC CPT-4: G0008 12/17/2016 FLU VACC PRSV FREE I NC ANTIG Formatting Model/CDA Sections, Assigned to/Nery Daniels CPT-4: 94338Guyrjef 11/14/2015 ADMIN INFLUENZA VIRU S VAC CPT-4: G0008 11/14/2015 ADMIN INFLUENZA VIRU S VAC Formatting Model/CDA Sections, Assigned to/JeremiahNery CPT-4: [id number] 12/04/2014 FLU VACC 4 ANABELLE 3 YRS PLUS IM SNOMED CT: [id number] CPT-4: 87585 12/04/2014 Vital Signs Date Vital 04/27/2018 Blood Pressure 1: 118/44 Code: 8480-6 BMI: 28.3 Code: 59001-3 Heart Rate 1: 77 bpm Height: 5' SpO2: 99% Weight: 145 lbs 03/28/2018 Blood Pressure 1: 140/74 Code: 8480-6 BMI: 28.1 Code: 69937-7 Heart Rate 1: 87 bpm Height: 5' SpO2: 99% Weight: 144 lbs 02/24/2018 Blood Pressure 1: 130/62 Code: 8480-6 BMI: 28.9 Code: 73332-0 Heart Rate 1: 57 bpm Height: 5' SpO2: 99% Weight: 148 lbs 01/27/2018 Blood Pressure 1: 142/70 Code: 8480-6 BMI: 29.5 Code: 92892-1 Heart Rate 1: 61 bpm Height: 5' SpO2: 99% Weight: 151 lbs 11/25/2017 Blood Pressure 1: 148/72 Code: 8480-6 BMI: 30.9 Code: 26976-1 Heart Rate 1: 62 bpm Height: 5' SpO2: 98% Weight: 158 lbs 10/26/2017 Blood Pressure 1: 156/74 Code: 8480-6 BMI: 31.2 Code: 92130-1 Heart Rate 1: 71 bpm Height: 5' SpO2: 98% Weight: 160 lbs 10/11/2017 Blood Pressure 1: 128/70 Code: 8480-6 BMI: 30.9 Code: 65727-9 Heart Rate 1: 70 bpm Height: 5' SpO2: 95% Weight: 158 lbs 09/22/2017 Blood Pressure 1: 110/52 Code: 8480-6 BMI: 30.9 Code: 82440-3 Heart Rate 1: 72 bpm Height: 5' SpO2: 99% Weight: 158 lbs 07/06/2017 Blood Pressure 1: 120/85 Code: 8480-6 BMI: 31.4 Code: 96368-9 Heart Rate 1: 74 bpm Height: 5' SpO2: 92% Weight: 161 lbs 06/03/2017 Blood Pressure 1: 120/62 Code: 8480-6 BMI: 31.1 Code: 29604-2 Heart Rate 1: 73 bpm Height: 5' SpO2: 99% Weight: 159 lbs 05/12/2017 Blood Pressure 1: 132/68 Code: 8480-6 BMI: 32.4 Code: 02885-0 Heart Rate 1: 95 bpm Height: 5' SpO2: 97% Weight: 166 lbs 04/15/2017 Blood Pressure 1: 128/84 Code: 8480-6 BMI: 32.4 Code: 47611-8 Heart Rate 1: 62 bpm Height: 5' SpO2: 97% Weight: 166 lbs 03/19/2017 Blood Pressure 1: 112/60 Code: 8480-6 BMI: 32.0 Code: 52962-1 Height: 5' Weight: 164 lbs 02/03/2017 Blood Pressure 1: 128/76 Code: 8480-6 BMI: 33.4 Code: 32274-0 Heart Rate 1: 91 bpm Height: 5' SpO2: 99% Weight: 171 lbs 01/07/2017 Blood Pressure 1: 126/74 Code: 8480-6 BMI: 34.2 Code: 27330-5 Heart Rate 1: 83 bpm Height: 5' SpO2: 97% Weight: 175 lbs 12/17/2016 Blood Pressure 1: 122/72 Code: 8480-6 BMI: 34.0 Code: 74847-0 Heart Rate 1: 78 bpm Height: 5' SpO2: 97% Weight: 174 lbs 09/14/2016 Blood Pressure 1: 128/86 Code: 8480-6 BMI: 33.8 Code: 13706-0 Heart Rate 1: 88 bpm Height: 5' SpO2: 96% Weight: 173 lbs 06/18/2016 Blood Pressure 1: 122/74 Code: 8480-6 BMI: 34.8 Code: 05862-0 Heart Rate 1: 78 bpm Height: 5' SpO2: 98% Weight: 178 lbs 04/16/2016 Blood Pressure 1: 134/68 Code: 8480-6 BMI: 35.0 Code: 19902-9 Heart Rate 1: 67 bpm Height: 5' SpO2: 97% Weight: 179 lbs 03/19/2016 Blood Pressure 1: 132/74 Code: 8480-6 BMI: 34.6 Code: 36161-9 Heart Rate 1: 74 bpm Height: 5' SpO2: 97% Weight: 177 lbs 11/14/2015 Blood Pressure 1: 132/70 Code: 8480-6 BMI: 35.2 Code: 40701-9 Heart Rate 1: 68 bpm Height: 5' Weight: 180 lbs 08/14/2015 Blood Pressure 1: 122/74 Code: 8480-6 BMI: 33.8 Code: 12565-1 Heart Rate 1: 73 bpm Height: 5' SpO2: 93% Weight: 173 lbs 07/17/2015 Blood Pressure 1: 138/78 Code: 8480-6 BMI: 34.0 Code: 71246-1 Heart Rate 1: 85 bpm Height: 5' SpO2: 97% Weight: 174 lbs 03/25/2015 Blood Pressure 1: 130/78 Code: 8480-6 BMI: 33.2 Code: 83455-6 Heart Rate 1: 77 bpm Height: 5' SpO2: 97% Weight: 170 lbs 12/04/2014 Blood Pressure 1: 120/74 Code: 8480-6 BMI: 35.4 Code: 49372-5 Heart Rate 1: 67 bpm Height: 5' SpO2: 94% Weight: 181 lbs 5 oz 08/14/2014 Blood Pressure 1: 132/68 Code: 8480-6 BMI: 32.1 Code: 31992-7 Heart Rate 1: 62 bpm Height: 5'3" [...] nausea 01/27/2018 when she came home from t he hospital hypertension Blood Pressure Values not checking [...] Encounters Encounter Performer Loca tion Codes Date [id number] EST. PATIENT, LEVEL III Diagnosis: Right upper quadrant pain[ICD10: R10.11] Gardenia Nicole MD, [facility] CPT-4: 72850 04/27/2018 ([id number]) 30551 EST. P ATIENT, LEVEL IV Diagnosis: Essential (primary) hypertension[ICD10: I10] Diagnosis: Right upper quadrant pain[ICD10: R10.11] Mila Nicole MD, [facility] CPT-4: 31309 03/28/2018 ([id number]) 49795 EST. P ATIENT, LEVEL IV Diagnosis: Low back pain[ICD10: M54.5] Diagnosis: Dysuria[ICD10: R30.0] Diagnosis: Type 2 diabetes mellitus with hyperglycemia[ICD10: E11.65] Claudia Nicole MD, [facility] CPT-4: 58841 02/24/2018 ([id number]) 57086 EST. P ATIENT, LEVEL IV Diagnosis: Type 2 diabetes mellitus with hyperglycemia[ICD10: E11.65] Diagnosis: Essential (primary) hypertension[ICD10: I10] Diagnosis: Major depressive disorder, recurrent, mild[ICD10: F33.0] Diagnosis: Generalized anxiety disorder[ICD10: F41.1] Claudia Nicole MD, [facility] CPT-4: 28020 01/27/2018 ([id number]) 27079 EST. P ATIENT, LEVEL IV Diagnosis: Type 2 diabetes mellitus with hyperglycemia[ICD10: E11.65] Diagnosis: Essential (primary) hypertension[ICD10: I10] Diagnosis: Encounter for immunization[ICD10: Z23] Diagnosis: Carpal tunnel syndrome, left upper limb[ICD10: G56.02] Claudia Nicole MD, [facility] CPT-4: 58931 11/25/2017 ([id number]) 40249 EST. P ATIENT, LEVEL III Diagnosis: Type 2 diabetes mellitus with hyperglycemia[ICD10: E11.65] Claudia Nicole MD, [facility] CPT-4: 92148 10/26/2017 ([id number]) Miscellaneou s no charge Diagnosis: Type 2 diabetes mellitus with hyperglycemia[ICD10: E11.65] Claudia Nicole MD, [facility] CPT-4: 86707 10/18/2017 ([id number]) 68331 EST. 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 P ATIENT, LEVEL IV Diagnosis: Type 2 diabetes mellitus with hyperglycemia[ICD10: E11.65] Diagnosis: Paroxysmal atrial fibrillation[ICD10: I48.0] Diagnosis: Essential (primary) hypertension[ICD10: I10] Mila Nicole MD, [facility] CPT-4: 87824 07/06/2017 ([id number]) 46589 EST. P ATIENT, LEVEL IV Diagnosis: Essential (primary) hypertension[ICD10: I10] Diagnosis: Type 2 diabetes mellitus with hyperglycemia[ICD10: E11.65] Diagnosis: Paroxysmal atrial fibrillation[ICD10: I48.0] Claudia Nicole MD, [facility] CPT-4: 20204 06/03/2017 56774 EST. PATIENT, LEVEL III Diagnosis: Generalized anxiety disorder[ICD10: F41.1] Diagnosis: Major depressive disorder, recurrent, moderate[ICD10: F33.1] Diagnosis: Paroxysmal tachycardia, unspecified[ICD10: I47.9] Gardenia Nicole MD, [facility] CPT-4: 11729 05/12/2017 ([id number]) 41325 EST. P ATIENT, LEVEL IV Diagnosis: Essential (primary) hypertension[ICD10: I10] Diagnosis: Cough[ICD10: R05] Diagnosis: Dysuria[ICD10: R30.0] Mila Nicole MD, [facility] CPT-4: 78855 04/15/2017 ([id number]) 72565 EST. P ATIENT, LEVEL IV Diagnosis: Type 2 diabetes mellitus with hyperglycemia[ICD10: E11.65] Diagnosis: Essential (primary) hypertension[ICD10: I10] Mila Nicole MD, [facility] CPT-4: 20332 03/19/2017 ([id number]) 04519 EST. P ATIENT, LEVEL III Diagnosis: Type 2 diabetes mellitus with hyperglycemia[ICD10: E11.65] Mila Nicole MD, [facility] CPT-4: 16164 02/03/2017 73739 EST. PATIENT, LEVEL IV Diagnosis: Generalized anxiety disorder[ICD10: F41.1] Diagnosis: Type 2 diabetes mellitus with hyperglycemia[ICD10: E11.65] Diagnosis: Essential (primary) hypertension[ICD10: I10] Gardenia Nicole MD, [facility] CPT-4: 97821 01/07/2017 ([id number]) 13701 EST. P ATIENT, LEVEL III Diagnosis: Type 2 diabetes mellitus with hyperglycemia[ICD10: E11.65] Diagnosis: Encounter for immunization[ICD10: Z23] Mila Nicole MD, [facility] CPT-4: 20217 12/17/2016 ([id number]) 27967 EST. P ATIENT, LEVEL IV Diagnosis: Type 2 diabetes mellitus with hyperglycemia[ICD10: E11.65] Diagnosis: Essential (primary) hypertension[ICD10: I10] Diagnosis: Major depressive disorder, recurrent, mild[ICD10: F33.0] Mila Nicole MD, [facility] CPT-4: 25654 09/14/2016 ([id number]) 98026 EST. 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 P ATIENT, LEVEL IV Diagnosis: Type 2 diabetes mellitus with hyperglycemia[ICD10: E11.65] Diagnosis: Essential (primary) hypertension[ICD10: I10] Mila Nicole MD, [facility] CPT-4: 29966 04/16/2016 ([id number]) 21911 EST. 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 P ATIENT, LEVEL IV Diagnosis: Type 2 diabetes mellitus with hyperglycemia[ICD10: E11.65] Diagnosis: Encounter for immunization[ICD10: Z23] Diagnosis: Essential (primary) hypertension[ICD10: I10] Mila Nicole MD, C CPT-4: 50768 11/14/2015 ([id number]) 49410 EST. P ATIENT, LEVEL IV Diagnosis: Type 2 diabetes mellitus with hyperglycemia[ICD10: E11.65] Diagnosis: Essential (primary) hypertension[ICD10: I10] Diagnosis: Low back pain[ICD10: M54.5] Mila Nciole MD, [facility] CPT-4: 20320 08/14/2015 ([id number]) 07464 EST. P ATIENT, LEVEL IV Diagnosis: Type 2 diabetes mellitus with hyperglycemia[ICD10: E11.65] Diagnosis: Essential (primary) hypertension[ICD10: I10] Diagnosis: Hypothyroidism, unspecified[ICD10: E03.9] Mila Nicole MD, [facility] CPT-4: 36056 07/17/2015 ([id number]) 08847 EST. P ATIENT, LEVEL IV Diagnosis: Essential (primary) hypertension[ICD10: I10] Diagnosis: Type 2 diabetes mellitus with hyperglycemia[ICD10: E11.65] Diagnosis: Headache[ICD10: R51] Gardenia Nicole MD, [facility] CPT-4: 47762 03/25/2015 ([id number]) 66784 EST. P ATIENT, LEVEL IV Diagnosis: ESSENTIAL HYPERTENSION[ICD9: 401.9] Diagnosis: DIABETES TYPE II[ICD9: 250.00] Diagnosis: Aortic stenosis[ICD9: 424.1] Mila Nicole MD, [facility] CPT-4: 04566 12/04/2014 ([id number]) OFFICE VISI T, [facility] - LEVEL 4 Diagnosis: ESSENTIAL HYPERTENSION[ICD9: 401.9] Diagnosis: Diabetes mellitus out of control[ICD9: 250.02] Mila Nicole MD, C CPT-4: 39275 08/14/2014 Plan of Care Planned Activity Notes C odes Status Date Patient Education: Patient Medication Summary Completed 06/07/2018 Care Plan: [facility] 43244-7 Pending 06/07/2018 Appointment: Lab Draw 04/28/2018 Patient [...] or concerns. 04/27/2018 App[facility]ment[phone] [facility] [place] (10 min) Simple 04/27/2018 Patient Education: Patient Medication Summary Completed 04/27/2018 App[facility]ment: [phone] [facility] [place] (15 min) Moderate 04/05/2018 Visit Plan: [...] current regimen. 03/28/2018 App[facility]ment: [phone] [facility] [place] (15 min) Moderate 03/28/2018 Patient Education: Patient Medication Summary Completed 03/28/2018 Patient Education: Hypertension Completed 03/28/2018 Care Plan: ECHO EXAM OF ABDOMEN Pending 03/28/2018 Visit Plan: Low back pain-xray lumb ar spine Dysuria- improved-will culture urine IH-qosbpa-dz changes today 02/24/2018 Appointment: [facility] [phone] [phone] (15 min) Moderate 02/24/2018 Patient Education: [...] medications. 01/27/2018 Appointment: [facility]el[facility] [phone] [phone] (15 min) Moderate 01/27/2018 Patient Education: [...] any worse 11/25/2017 Appointment: Claudia Pruitt WPtel: [phone] (15 min) Moderate 11/25/2017 Patient Education: Patient Medication Summary Completed 11/25/2017 Appointment: Mil[facility] Nicole [facility]Ptel[facility] (15 min) Moderate 10/28/2017 Visit Plan: Diabetes [...] to appt. 10/26/2017 Appointment: Claudia Pruitt WPtel: [phone] (15 min) Moderate 10/26/2017 Patient Education: Patient [...] of plan. 10/11/2017 Appointment: Claudia Pruitt WPtel: [phone] (30 min) Complex 10/11/2017 Patient Education: Patient [...] Completed 09/22/2017 Appointment: [phone] [facility] (15 min) Moderate 09/13/2017 Appointment: Mila Nicole WPtel: [phone] [facility] (15 min) Moderate 09/07/2017 Visit Plan: [...] uncontrolled. 07/06/2017 Appointment: Mila Nicole WPtel: [phone] [facility] (15 min) Moderate 07/06/2017 Patient Education: Patient Medication Summary Completed 07/06/2017 Appointment: Mila Nicole WPtel: [phone] [facility] (15 min) Moderate 06/07/2017 Visit Plan: [...] less controlled. 06/03/2017 Appointment: Claudia Pruitt WPtel: [phone] (30 min) Complex 06/03/2017 Patient Education: Patient [...] treatment plan 05/12/2017 Appointment: Gardenia Shah WPtel: [phone] [facility] (30 min) Complex 05/12/2017 Patient Education: Patient [...] Entresto medication. 04/15/2017 Appointment: [phone] (15 min) Moderate 04/15/2017 Patient Education: Patient [...] units daily. 03/19/2017 Appointment: Mila Nicole WPtel: [phone] [facility] (15 min) Moderate 03/19/2017 Patient Education: Patient Medication Summary Completed 03/19/2017 Appointment: Mila Nicole WPtel: [phone] [facility] (15 min) Moderate 02/24/2017 Visit Plan: [...] at HS 02/03/2017 Appointment: Mila Nicole WPtel: [phone] [facility] (15 min) Moderate 02/03/2017 Patient Education: [...] acute concerns. 01/07/2017 Appointment: [facility]el[phone] (30 min) Complex 01/07/2017 [...] to allow for greater blood glucose control. [id number], 02/2018 junior nordisk 12/17/2016 Appointment: Mila Nicole WPtel: [facility] (15 min) Moderate 12/17/2016 Patient Education: Patient Medication Summary Completed 12/17/2016 Patient Education: Obesity Completed 12/17/2016 Appointment: [facility] Nicole [facility]Ptel[facility] (15 min) Moderate 12/14/2016 Visit Plan: Diabetes [...] medications. 09/14/2016 Appointment: Mila Nicole WPtel: [phone] [facility] (15 min) Moderate 09/14/2016 Patient Education: [...] home. 06/18/2016 App[facility]ment: [phone] (15 min) Moderate 06/18/2016 Patient Education: Patient [...] home. 04/16/2016 Appointment: [phone] [facility] (15 min) Moderate 04/16/2016 Patient Education: Patient [...] gabapentin 03/19/2016 Appointment: [phone] [facility] (15 min) Moderate 03/19/2016 Patient Education: Patient [...] home. 11/14/2015 Appointment: [phone] [facility] (15 min) Moderate 11/14/2015 Patient Education: Patient [...] check Hgba1c 07/17/2015 Appointment: Mil[facility] Nicole WPtel: [facility] (15 min) Moderate 07/17/2015 Patient Education: Patient [...] Completed 03/25/2015 Appointment: [facility] [phone] [facility] (15 min) Moderate 01/14/2015 Visit Plan: Diabetes [...] control. 12/04/2014 Appointment: [phone] [facility] (15 min) Moderate 12/04/2014 Patient Education: Patient [...] control. 08/14/2014 Appointment: [phone] [facility] [place] (S) New Patient 08/14/2014 Patient Education: [...] to allow for greater blood glucose control. [id number], 02/2018 junior nordisk CHECK LABS AND UA XRAY LUMBAR . Low back pain-xray lumbar spine Dysuria- improved-will culture urine HT-nrfhry-kc changes today . Hypertension - wel l [...] previous levels of control. . Hypertension - wel l controlled - [...] for back pain. . Anxiety - the bryan ent has [...] in current treatment plan Monitor your blood p ressure at home [...] allow for greater blood glucose control. . Right upper abdomi nal pain radiating [...] have to be off of her Eliquis juliaight, Wednesday and Wednesday - this will be enough time for the Eliquis to be out of her system for less bleeding during surgery. Pt alerted about the plan. HTN - controlled fairly well - continue with current regimen. . Diabetes Mellitus - controlled - per [...] - continue with gabapentin . Hypertension - wel l controlled - [...] on previous levels of control. Decrease victoza walter k to your previous [...] in current medications. On 02/07/17 - stop t he Victoza [...] 10 units at HS tylenol 2 pills thre e times daily [...] are starting to become less controlled. . RUQ pain, generali zed abdominal pain [...] with any changes, questions, or concerns. . DM-patient is here for placement of [...]
--- OUTSIDE RECORDS SUMMARY | 2019-03-16 19:23 | XMS REPORT | CCD ---
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 Name Role Phone PP Unavailable CCM Unavailable Summary Purpose Interface Exchange Insurance Providers Payer name Policy type / Coverage type Covered green party ID Effective Begin Date Effective End Date WPS Medicare Part B Medicare Part B [id number] Unknown Unknown AARP Medicare Part B [id number] Unknown Unknown Family history Mother Diagnosis Age At Onset Arthritis Unknown Father Diagnosis Age At Onset Hypertension Unknown Diabetes Unknown Stroke Unknown Cancer Unknown Social History Social History Element Codes Description Effective Dates Marital status Unknown M jose enrique Anna 06/18/2016 Number of children Unknown 3 08/14/[address]: 486258679 Never smoker 08/14/[address]: 526873421 Never drinks alcohol 08/14/2014 Allergies, Adverse Reactions, Alerts Allergies, Adverse Reactions, Alerts data not found Past Medical History Illness Codes Condition Status Onset Date Resolved Date Essential (primary) hypertension ICD-9: 401.9 ICD-10: I10 Active 08/13/2014 Unknown Major depressive dis order, recurrent, mild ICD-9: 296.31 ICD-10: F33.0 Active 09/14/2016 Unknown Type 2 diabetes anne itus with hyperglycemia ICD-9: 250.00 ICD-10: E11.65 Active 12/03/2014 Unknown 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 ICD-9: 250.60 ICD-10: E11.43 Active 03/19/2016 Unknown Encounter for immuni zation ICD-9: V04.81 ICD-10: Z23 Active 12/03/2014 Unknown Low back pain ICD-9: 724.2 ICD-10: M54.5 Active 08/13/2015 Unknown Hypothyroidism, unsp ecified ICD-9: 244.9 ICD-10: [...] Condition Codes Effectiv e Dates Condition Status Essential (primary) hypertension ICD-9: 401.9 ICD-10: I10 08/13/2014 Active Major depressive dis order, recurrent, mild ICD-9: 296.31 ICD-10: F33.0 09/14/2016 Active Type 2 diabetes anne itus with hyperglycemia ICD-9: 250.00 ICD-10: E11.65 12/03/2014 Active 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 ICD-9: 250.60 ICD-10: E11.43 03/19/2016 Active Encounter for immuni zation ICD-9: V04.81 ICD-10: Z23 12/03/2014 Active Low back pain ICD-9: 724.2 ICD-10: M54.5 08/13/2015 Active Hypothyroidism, unsp ecified ICD-9: 244.9 ICD-10: [...] Date Stop Date Sta tus Fill Instructions fluticasone 50 mcg/a ctuation nasal spray,suspension RxNorm: 0481966 [place] NASAL ONE SPRAY IN EACH NOSTRIL TWICE DAILY 09/28/2016 04/25/2017 Active Victoza 2-Dariusz 0.6 mg /0.1 mL (18 mg/3 mL) subcutaneous pen injector RxNorm: 574613 1.2 Milligram(s) SQ daily 09/14/2016 01/11/2017 Active Lexapro 5 mg tablet RxNorm: 570409 1 Tablet(s) PO QHS 09/14/2016 12/12/2016 Active metformin 500 mg tablet RxNorm: 092702 1 Tablet(s) PO UD 1.5 in morning, noon a nd 1 at bedtime 09/08/2016 09/02/2017 Active glimepiride 4 mg tablet RxNorm: 642281 TAKE 1 TABLET BY MOUTH ONCE DAILY 07/31/2016 09/13/2016 In active Generic For:*AMARYL 4MG 07/31/2016 9:02 :38 AM Victoza 2-Dariusz 0.6 mg /0.1 mL (18 mg/3 mL) subcutaneous pen injector RxNorm: 868725 1.2 Milligram(s) SQ daily 05/18/2016 09/13/2016 Inactive Victoza 2-Dariusz 0.6 mg /0.1 mL (18 mg/3 mL) subcutaneous pen injector RxNorm: 471724 1.2 Milligram(s) SQ daily 04/16/2016 05/17/2016 Inactive levothyroxine 50 mcg tablet RxNorm: 687423 TAKE 1 TABLET BY MOUT H ONCE DAILY 04/08/2016 12/03/2016 Ac tive Generic For:SYNTHROID 50MCG TAB 017 9:05:40 AM levothyroxine 50 mcg tablet RxNorm: 505752 1 Tablet(s) PO daily TAKE 1 TABLET BY MOUTH ONCE DAILY 04/08/2016 12/03/2016 Active Generic For:SYNTHROID 50MCG TAB N O T I C E PRESCRIPTION PREVIOUSLY AUTHORIZED BY DOCTOR:HENRY BAIG bisoprolol 5 mg-hydr ochlorothiazide 6.25 mg tablet RxNorm: 730044 1 Tablet(s) PO BID 03/23/2016 03/17/2017 Ac tive gabapentin 600 mg ta blet RxNorm: 464500 1 Capsule(s) PO TID 03/19/2016 No Stop Date Active Victoza 2-Dariusz 0.6 mg /0.1 mL (18 mg/3 mL) subcutaneous pen injector RxNorm: 149696 0.6 Milligram(s) SQ daily 03/19/2016 04/15/2016 Inactive Lexapro 5 mg tablet RxNorm: 688684 1 Tablet(s) PO QHS 03/19/2016 06/16/2016 Inactive glimepiride 4 mg tablet RxNorm: 237460 1 Tablet(s) PO daily 12/09/2015 06/05/2016 Inactive Victoza 3-Dariusz 0.6 mg /0.1 mL (18 mg/3 mL) subcutaneous pen injector RxNorm: 839409 0.6 Milligram(s) SQ daily x2 weeks, then 1.2 mg SQ daily 12/02/2015 03/18/2016 Inactive metformin 500 mg tablet RxNorm: 687631 1 Tablet(s) PO UD 1.5 in morning, noon a nd 1 at bedtime 08/14/2015 08/07/2016 Inactive gabapentin 600 mg ta blet RxNorm: 946336 1 Capsule(s) PO TID S HE IS ONLY TAKING 1 QD 08/14/2015 03/18/2016 In active fluticasone 50 mcg/a ctuation nasal spray,suspension RxNorm: 512554 [place] NASAL ONE SPRAY IN EACH NOSTRIL TWICE DAILY 07/26/2015 07/25/2015 Inactive fluticasone 50 mcg/a ctuation nasal spray,suspension RxNorm: 2510263 [place] NASAL ONE SPRAY IN EACH NOSTRIL TWICE DAILY 07/26/2015 02/20/2016 Inactive bisoprolol 5 mg-hydr ochlorothiazide 6.25 mg tablet RxNorm: 945677 1 Tablet(s) PO daily 1 Tablet(s) PO BID 07/17/2015 01/12/2016 Inactive metformin 500 mg tablet RxNorm: 170995 1 Tablet(s) PO TID 1 Tablet(s) PO TID 07/17/2015 08/13/2015 In active Diflucan 100 mg tablet RxNorm: 671459 1 Tablet(s) PO daily 07/17/2015 07/21/2015 Inactive Zetia 10 mg tablet RxNorm: 892633 1 Tablet(s) PO daily 06/10/2015 06/03/2016 Inactive bisoprolol 5 mg-hydr ochlorothiazide 6.25 mg tablet RxNorm: 759014 1 Tablet(s) PO BID 04/18/2015 07/16/2015 Inactive metformin 500 mg tablet RxNorm: 568169 1 Tablet(s) PO TID 03/01/2015 06/28/2015 Inactive glimepiride 4 mg tablet RxNorm: 885895 1 Tablet(s) PO daily 01/31/2015 01/30/2015 Inactive levothyroxine 50 mcg tablet RxNorm: 777351 TAKE 1 TABLET BY MOUT H ONCE DAILY 01/31/2015 09/27/2015 In active Generic For:SYNTHROID 50MCG TAB N O T I C E PRESCRIPTION PREVIOUSLY AUTHORIZED BY DOCTOR:HENRY BAIG glimepiride 4 mg tablet RxNorm: 363928 1 Tablet(s) PO daily 01/31/2015 07/29/2015 Inactive Invokana 100 mg tablet RxNorm: 1652572 1 Tablet(s) PO daily 12/12/2014 07/16/2015 Inactive bisoprolol 5 mg-hydr ochlorothiazide 6.25 mg tablet RxNorm: 058079 1 Tablet(s) PO BID 08/27/2014 02/22/2015 Inactive metformin 500 mg tablet RxNorm: 926737 1 Tablet(s) PO TID 08/10/2014 12/07/2014 Inactive metformin 500 mg tablet RxNorm: 758460 1 Tablet(s) PO TID 08/10/2014 08/09/2014 Inactive Fish Oil 1,000 mg ca psule RxNorm: 1 Capsule(s) PO daily No Start Date Active pen needle, diabetic 31 gauge x 1/6" RxNorm: Miscellaneous N o Start Date Active bisoprolol-hydrochlo rothiazide oral RxNorm: [address] art Date 08/26/2014 Inactive levothyroxine 50 mcg tablet RxNorm: 215654 1 Tablet(s) PO daily No Start Date 01/30/2015 Inactive Invokana 100 mg tablet RxNorm: 2981680 1 Tablet(s) PO daily No Start Date 12/11/2014 Inactive Victoza 3-Dariusz 0.6 mg /0.1 mL (18 mg/3 mL) subcutaneous pen injector RxNorm: 498190 0.6 Milligram(s) SQ daily x2 weeks, then 1.2 mg SQ daily No Start Date 12/01/2015 Inactive Zetia 10 mg tablet RxNorm: 544147 1 Tablet(s) PO BID No Start Date 03/18/2016 Inactive gabapentin 300 mg ca psule RxNorm: 262759 1 Capsule(s) PO BID No Start Date 08/13/2015 Inactive Medication Administered No Medication Administered data Immunizations Vaccine Codes Date Status Influenza CVX: 141 11/13 completed Influenza CVX: 141 12/04 completed Assessments Condition Codes Effectiv e Dates Major depressive disorder, recurrent, 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 ICD-9: 296.31 09/14/2016 Essential (primary) hypertension ICD -10: I10 ICD-9: 401.9 09/14/2016 Type 2 diabetes mellitus with hyperglycemia ICD-10: E11.65 ICD-9: 250.00 09/14/2016 Type 2 diabetes mellitus with diabetic a utonomic (poly)neuropathy ICD-10: E11.43 ICD-9: 250.60 06/18/2016 Encounter for immunization ICD-10: Z 23 ICD-9: V04.81 11/14/2015 Low back pain ICD-10: M54.5 ICD-9: 724.2 08/14/2015 Hypothyroidism, unspecified ICD-10: E03.9 ICD-9: 244.9 07/17/2015 Headache ICD-10: R51 ICD-9: 784.0 03/25/2015 ESSENTIAL HYPERTENSION ICD-9: 401.9 12/04/2014 Aortic stenosis ICD-9: 424.1 12/04/2014 DIABETES TYPE II ICD-9: 250.00 12/04/2014 VACCIN FOR INFLUENZA ICD-9: V04.81 12/04/2014 Diabetes mellitus out of control ICD -9: 250.02 08/14/2014 Reason For Visit Reason For Visit Effective Dates Notes diabetes mellitus 09/14/2016 diabetes mellitus 06/18/2016 medication follow up 04/16/2016 back pain 03/19/2016 back pain 11/14/2015 back pain 08/14/2015 diabetes mellitus 07/17/2015 Hospital Follow Up 03/25/2015 diabetes mellitus 12/04/2014 diabetes mellitus 08/14/2014 Results Observation Observation Code Item Item Code Result Date Metabolic Ord15 NA 139 mEq/L 09/08/2016 Metabolic [...] Metabolic Ord15 CALCIUM 9.0 mg/dL 09/08/2016 %Hba1C Tgb906 % HbA1c 93579-6 7.5 % 09/08/2016 %Hba1C Nlf090 Gluc Ave 169 mg/dL 09/08/2016 Tsh Ord6 hTSH II 2.64 uIU/mL 03/13/2016 %Hba1C Smj971 % HbA1c 40674-4 8.2 % 03/13/2016 %Hba1C Rrz366 Gluc Ave 189 mg/dL 03/13/2016 Lipid Ord30 CHOL 233 mg/dL 03/13/2016 Lipid Ord30 HDL 46.0 mg/dl 03/13/2016 Lipid Ord30 TRIG 276 mg/dL 03/13/2016 Lipid Ord30 LDL 132 mg/dL 03/13/2016 Lipid Ord30 C/HDL 5.1 Ratio 03/13/2016 Free T4 Tkz229 FREE T4 0.94 ng/dL 03/13/2016 Cbc With [...] 29.5 % 03/13/2016 Cbc With Differential Ord2 [place]% 6.1 % 03/13/2016 Cbc With Differential Ord2 [...] 1.63 K/ul 03/13/2016 Cbc With Differential Ord2 [place] ABS# 0.3 K/ul 03/13/2016 Cbc With Differential Ord2 Eos ABS# 0.1 K/ul 03/13/2016 Cbc With Differential Ord2 Baso ABS# 0.0 K/ul 03/13/2016 Comp Metabolic Gln390 NA 139 mEq/L 03/13/2016 Comp Metabolic Mdr741 K 4.3 mEq/L 03/13/2016 Comp Metabolic Oxq699 CL 103 mEq/L 03/13/2016 Comp Metabolic Nce963 CO2 28.0 mEq/L 03/13/2016 Comp Metabolic Hen206 AN ION GAP 12 03/13/2016 Comp Metabolic Hii275 GL UCOSE 200 mg/dL 03/13/2016 Comp Metabolic Oob584 Cr eat 0.9 mg/dL 03/13/2016 Comp Metabolic Yry518 eG FR 69 ml/min/1.73m2 03/13 Comp Metabolic Skh684 BUN 19 mg/dL 03/13/2016 Comp Metabolic Rhb052 B/ C Ratio 22.4 Ratio 03/13/2016 Comp Metabolic Tla677 CA LCIUM 9.0 mg/dL 03/13/2016 Comp Metabolic Tuj022 AL K PHOS 57 U/L 03/13/2016 Comp Metabolic Bvv037 T(SGOT) 13 U/L 03/13/2016 Comp Metabolic Jns864 AL T(SGPT) 16 U/L 03/13/2016 Comp Metabolic Keh300 BI LI T 0.4 mg/dL 03/13/2016 Comp Metabolic Vto229 AL BUMIN 4.2 g/dL 03/13/2016 Comp Metabolic Crr151 TP RO 6.3 g/dL 03/13/2016 Comp Metabolic Nkc978 GL OB 2.1 g/dL 03/13/2016 Comp Metabolic Aum749 A/ G Ratio 2.0 Ratio 03/13/2016 Comp Metabolic Yst693 Os mo 285 mOsmo 03/13/2016 %Hba1C Mof212 % HbA1c 58003-8 8.3 % 11/14/2015 %Hba1C Boi422 Gluc Ave 192 mg/dL 11/14/2015 Lipid Ord30 CHOL 210 mg/dL 07/19/2015 Lipid Ord30 HDL 43.0 mg/dl 07/19/2015 Lipid Ord30 TRIG 311 mg/dL 07/19/2015 Lipid Ord30 LDL 105 mg/dL 07/19/2015 Lipid Ord30 C/HDL 4.9 Ratio 07/19/2015 %Hba1C Pfw623 % HbA1c 61665-0 7.6 % 07/19/2015 %Hba1C Wul576 Gluc Ave 171 mg/dL 07/19/2015 Cbc With [...] 30.3 % 07/19/2015 Cbc With Differential Ord2 [place]% 6.1 % 07/19/2015 Cbc With Differential Ord2 MCH 28.8 pg 07/19/2015 Cbc With Differential Ord2 Eos% [...] 1.63 K/ul 07/19/2015 Cbc With Differential Ord2 [place] ABS# 0.3 K/ul 07/19/2015 Cbc With Differential Ord2 Eos ABS# 0.1 K/ul 07/19/2015 Cbc With Differential Ord2 Baso ABS# 0.0 K/ul 07/19/2015 Cbc With Differential Ord2 New Analyzer Notice Please note new ref ranges s tarting 03-27-2015 due to implemntation of new five part differential hematolgy analyzer. 07/19/2015 Comp Metabolic Ssj615 NA 138 mEq/L 07/19/2015 Comp Metabolic Uel487 K 4.3 mEq/L 07/19/2015 Comp Metabolic Cvz980 CL 100 mEq/L 07/19/2015 Comp Metabolic Lxn335 CO2 33.0 mEq/L 07/19/2015 Comp Metabolic Tkf971 AN ION GAP 9 07/19/2015 Comp Metabolic Gnv675 GL UCOSE 149 mg/dL 07/19/2015 Comp Metabolic Wkx968 Cr eat 0.9 mg/dL 07/19/2015 Comp Metabolic Zpq660 eG FR 62 ml/min/1.73m2 07/18 Comp Metabolic Wcg304 BUN 19 mg/dL 07/19/2015 Comp Metabolic Hig462 B/ C Ratio 20.2 Ratio 07/19/2015 Comp Metabolic Ppj202 CA LCIUM 9.5 mg/dL 07/19/2015 Comp Metabolic Kkz887 AL K PHOS 52 U/L 07/19/2015 Comp Metabolic Jhi924 T(SGOT) 15 U/L 07/19/2015 Comp Metabolic Hog200 AL T(SGPT) 14 U/L 07/19/2015 Comp Metabolic Xez653 BI LI T 0.5 mg/dL 07/19/2015 Comp Metabolic Qfd346 AL BUMIN 4.4 g/dL 07/19/2015 Comp Metabolic Hrp850 TP RO 6.4 g/dL 07/19/2015 Comp Metabolic Ukl782 GL OB 2.0 g/dL 07/19/2015 Comp Metabolic Ayc057 A/ G Ratio 2.2 Ratio 07/19/2015 Comp Metabolic Kbd407 Os mo 281 mOsmo 07/19/2015 Free T4 Lkz290 FREE T4 0.92 ng/dL 07/19/2015 Tsh Ord6 hTSH II 1.95 uIU/mL 07/19/2015 Microalbumin Xet747 Micr oAlb 0.4 mg/dL 07/19/2015 Comp Metabolic Dgs548 NA 137 mEq/L 12/04/2014 Comp Metabolic Lib788 K 4.0 mEq/L 12/04/2014 Comp Metabolic Uty869 CL 100 mEq/L 12/04/2014 Comp Metabolic Ool304 CO2 29.0 mEq/L 12/04/2014 Comp Metabolic Qxy851 AN ION GAP 12 12/04/2014 Comp Metabolic Mga664 GL UCOSE 171 mg/dL 12/04/2014 Comp Metabolic Glb120 Cr eat 1.0 mg/dL 12/04/2014 Comp Metabolic Drr658 eG FR 60 ml/min/1.73m2 12/04 Comp Metabolic Wcu313 BUN 25 mg/dL 12/04/2014 Comp Metabolic Fyl337 B/ C Ratio 25.8 Ratio 12/04/2014 Comp Metabolic Rnr970 CA LCIUM 9.4 mg/dL 12/04/2014 Comp Metabolic Jgb250 AL K PHOS 60 U/L 12/04/2014 Comp Metabolic Qtj809 T(SGOT) 13 U/L 12/04/2014 Comp Metabolic Rkt624 AL T(SGPT) 17 U/L 12/04/2014 Comp Metabolic Ecm715 BI LI T 0.4 mg/dL 12/04/2014 Comp Metabolic Awy844 AL BUMIN 4.4 g/dL 12/04/2014 Comp Metabolic Llu465 TP RO 6.9 g/dL 12/04/2014 Comp Metabolic Tgm196 GL OB 2.5 g/dL 12/04/2014 Comp Metabolic Ykc698 A/ G Ratio 1.8 Ratio 12/04/2014 Comp Metabolic Djr444 Os mo 282 mOsmo 12/04/2014 Tsh Ord6 hTSH II 1.78 uIU/mL 12/04/2014 %Hba1C Gwh245 % HbA1c 28165-3 8.3 % 12/04/2014 %Hba1C Efr810 Gluc Ave 192 mg/dL 12/04/2014 Free T4 Nwo461 FREE T4 0.85 ng/dL 12/04/2014 Lipid Ord30 [...] Result Effective Dates Constitutional No recent illness 09/14/2016 Constitutional No [...] No alteration of consciousness 09/14/2016 Psychiatric anxiety 07/0 05/2016 Psychiatric depression 0 09/14/2016 Constitutional No [...] dentition 09/14/2016 None Full Exam - General 1995 [...] kyphosis 08/14/2014 None Procedures Procedure Codes Date FLU VACC PRSV FREE I NC ANTIG Formatting Model/CDA Sections, Assigned to/Nery Daniels CPT-4: 26993Ixgvdcx 11/14/2015 ADMIN INFLUENZA VIRU S VAC CPT-4: B9610Gyuwxfb 11/14/2015 ADMIN INFLUENZA VIRU S VAC Formatting Model/CDA Sections, Assigned to/Nery Daniels CPT-4: S9309Xlximba 12/04/2014 FLU VACC 4 ANABELLE 3 YRS PLUS IM SNOMED CT: 11982265 CPT-4: 70241Mzatvtn 12/04/2014 Vital Signs Date Vital 09/14/2016 Blood Pressure 1: 128/86 Code: 8480-6 BMI: 33.8 Code: 70671-9 Heart Rate 1: 88 bpm Height: 5' SpO2: 96% Weight: 173 lbs 06/18/2016 Blood Pressure 1: 122/74 Code: 8480-6 BMI: 34.8 Code: 90032-1 Heart Rate 1: 78 bpm Height: 5' SpO2: 98% Weight: 178 lbs 04/16/2016 Blood Pressure 1: 134/68 Code: 8480-6 BMI: 35.0 Code: 52168-8 Heart Rate 1: 67 bpm Height: 5' SpO2: 97% Weight: 179 lbs 03/19/2016 Blood Pressure 1: 132/74 Code: 8480-6 BMI: 34.6 Code: 38788-0 Heart Rate 1: 74 bpm Height: 5' SpO2: 97% Weight: 177 lbs 11/14/2015 Blood Pressure 1: 132/70 Code: 8480-6 BMI: 35.2 Code: 89314-8 Heart Rate 1: 68 bpm Height: 5' Weight: 180 lbs 08/14/2015 Blood Pressure 1: 122/74 Code: 8480-6 BMI: 33.8 Code: 81354-1 Heart Rate 1: 73 bpm Height: 5' SpO2: 93% Weight: 173 lbs 07/17/2015 Blood Pressure 1: 138/78 Code: 8480-6 BMI: 34.0 Code: 38833-6 Heart Rate 1: 85 bpm Height: 5' SpO2: 97% Weight: 174 lbs 03/25/2015 Blood Pressure 1: 130/78 Code: 8480-6 BMI: 33.2 Code: 76287-4 Heart Rate 1: 77 bpm Height: 5' SpO2: 97% Weight: 170 lbs 12/04/2014 Blood Pressure 1: 120/74 Code: 8480-6 BMI: 35.4 Code: 15584-7 Heart Rate 1: 67 bpm Height: 5' SpO2: 94% Weight: 181 lbs 5 oz 08/14/2014 Blood Pressure 1: 132/68 Code: 8480-6 BMI: 32.1 Code: 82458-0 Heart Rate 1: 62 bpm Height: 5'3" SpO2: 97% Weight: 184 lbs Functional Status No Functional Status data History of Present Illness Symptom Name Status Resu lt Effective Date Notes diabetes mellitus Onset of Symptom onset as [...] exercise 07/17/2015 None Hospital Follow Up _ Ot er: 03/25/2015 None Hospital Follow Up Onset [...] Encounters Encounter Performer Loca tion Codes Date ([id number]) 81300 EST. P ATIENT, LEVEL IV Diagnosis: Type 2 diabetes mellitus with hyperglycemia[ICD10: E11.65] Diagnosis: Essential (primary) hypertension[ICD10: I10] Diagnosis: Major depressive disorder, recurrent, mild[ICD10: F33.0] Mila Nicole MD, C CPT-4: 55517 09/14/2016 ([id number]) 51053 EST. P ATIENT, LEVEL III Diagnosis: Type 2 diabetes mellitus with diabetic autonomic (poly)neuropathy[ICD10: E11.43] Diagnosis: Essential (primary) hypertension[ICD10: I10] Mila Nicole MD, C CPT-4: 47629 06/18/2016 ([id number]) 58255 EST. P ATIENT, LEVEL IV Diagnosis: Type 2 diabetes mellitus with hyperglycemia[ICD10: E11.65] Diagnosis: Essential (primary) hypertension[ICD10: I10] Mila Nicole MD, C CPT-4: 65240 04/16/2016 ([id number]) 78511 EST. P ATIENT, LEVEL IV Diagnosis: Type 2 diabetes mellitus with hyperglycemia[ICD10: E11.65] Diagnosis: Essential (primary) hypertension[ICD10: I10] Diagnosis: Type 2 diabetes mellitus with diabetic autonomic (poly)neuropathy[ICD10: E11.43] Mila Nicole MD, [facility] CPT-4: 15029 03/19/2016 ([id number]) 40748 EST. P ATIENT, LEVEL IV Diagnosis: Type 2 diabetes mellitus with hyperglycemia[ICD10: E11.65] Diagnosis: Encounter for immunization[ICD10: Z23] Diagnosis: Essential (primary) hypertension[ICD10: I10] Mila Nicole MD, C CPT-4: 37142 11/14/2015 ([id number]) 35524 EST. P ATIENT, LEVEL IV Diagnosis: Type 2 diabetes mellitus with hyperglycemia[ICD10: E11.65] Diagnosis: Essential (primary) hypertension[ICD10: I10] Diagnosis: Low back pain[ICD10: M54.5] Mila Nicole MD, [facility] CPT-4: 46206 08/14/2015 ([id number]) 25016 EST. P ATIENT, LEVEL IV Diagnosis: Type 2 diabetes mellitus with hyperglycemia[ICD10: E11.65] Diagnosis: Essential (primary) hypertension[ICD10: I10] Diagnosis: Hypothyroidism, unspecified[ICD10: E03.9] Mila Nicole MD, C CPT-4: 43112 07/17/2015 ([id number]) 84341 EST. P ATIENT, LEVEL IV Diagnosis: Essential (primary) hypertension[ICD10: I10] Diagnosis: Type 2 diabetes mellitus with hyperglycemia[ICD10: E11.65] Diagnosis: Headache[ICD10: R51] Gardenia Nicole MD, [facility] CPT-4: 67016 03/25/2015 ([id number]) 48783 EST. P ATIENT, LEVEL IV Diagnosis: ESSENTIAL HYPERTENSION[ICD9: 401.9] Diagnosis: DIABETES TYPE II[ICD9: 250.00] Diagnosis: Aortic stenosis[ICD9: 424.1] Mila Nicole MD, [facility] CPT-4: 23897 12/04/2014 ([id number]) OFFICE VISI T, NEW - LEVEL 4 Diagnosis: ESSENTIAL HYPERTENSION[ICD9: 401.9] Diagnosis: Diabetes mellitus out of control[ICD9: 250.02] Mila Nicole MD, LL C CPT-4: 95836 08/14/2014 Plan of Care Planned Activity Notes C odes Status Date Visit Plan: Diabetes Mellitus - controll ed - per recent FSBS reports. I have [...] glucose readings are starting to become less controlled.Hypertension - well controlled - continue with current medications, continue with no added salt diet. Pt has been encouraged to exercise daily.The pt has been advised to call the office if there are any acute concerns about change in blood pressure readings at home.Chronic Depression and anxiety - the pt has symptoms of chronic anxiety and depression that have been fairly well controlled since the last office visit. The pt has expected periods of exacerbation with abatement of the symptoms with change in situational exposure. No change in current medications. 09/14/2016 Appointment: Mila Nicole WPtel: [id number] (15 min) Moderate 09/14/2016 Patient Education: Patient Medication Summary Completed 09/14/2016 Patient Education: Obesity Completed 09/14/2016 Patient Education: Hypertension Completed 09/14/2016 Visit Plan: Diabetes Mellitus - controll ed - per recent FSBS reports. I have [...] glucose readings are starting to become less controlled.Hypertension - well controlled - continue with current medications, continue with no added salt diet. Pt has been encouraged to exercise daily.The pt has been advised to call the office if there are any acute concerns about change in blood pressure readings at home. 06/18/2016 Appointment: Mila Nicole WPtel: [phone] [phone] (15 min) Moderate 06/18/2016 Patient Education: Patient Medication Summary Completed 06/18/2016 Patient Education: Obesity Completed 06/18/2016 Patient Education: Hypertension Completed 06/18/2016 Visit Plan: Diabetes Mellitus - controll ed - per recent FSBS reports. I have [...] glucose readings are starting to become less controlled.Hypertension - well controlled - continue with current medications, continue with no added salt diet. Pt has been encouraged to exercise daily.The pt has been advised to call the office if there are any acute concerns about change in blood pressure readings at home. 04/16/2016 [facility] [phone] [facility] (15 min) Moderate 04/16/2016 Patient Education: Patient Medication Summary Completed 04/16/2016 Patient Education: Obesity Completed 04/16/2016 Patient Education: Hypertension Completed 04/16/2016 Visit Plan: Diabetes Mellitus - controll ed - per recent FSBS reports. I have [...] glucose readings are starting to become less controlled.check hgba1c todayHypertension - well controlled - continue with current medications, continue with no added salt diet. Pt has been encouraged to exercise daily.The pt has been advised to call the office if there are any acute concerns about change in blood pressure readings at home.Peripheral neuropathy - continue with gabapentin 03/19/2016 Appointment: [facility] [phone] [facility] [place] (15 min) Moderate 03/19/2016 Patient Education: Patient Medication Summary Completed 03/19/2016 Patient Education: Obesity Completed 03/19/2016 Patient Education: Hypertension Completed 03/19/2016 Visit Plan: Diabetes Mellitus - controll ed - per recent FSBS reports. I have [...] glucose readings are starting to become less controlled.check hgba1c todayflu shot todayHypertension - well controlled - continue with current medications, continue with no added salt diet. Pt has been encouraged to exercise daily.The pt has been advised to call the office if there are any acute concerns about change in blood pressure readings at home. 11/14/2015 Appointment: [facility]el[facility] [phone] [facility] (15 min) Moderate 11/14/2015 Patient Education: Patient Medication Summary Completed 11/14/2015 Patient Education: Obesity Completed 11/14/2015 Patient Education: Hypertension Completed 11/14/2015 Visit Plan: Diabetes Mellitus - controll ed - per recent FSBS reports. I have [...] glucose readings are starting to become less controlled.Hypertension - well controlled - continue with current medications, continue with no added salt diet. Pt has been encouraged to exercise daily.The pt has been advised to call the office if there are any acute concerns about change in blood pressure readings at home.Back pain - gabapentin for back pain. 08/14/2015 Patient Education: Patient Medication Summary Completed 08/14/2015 Patient Education: Obesity Completed 08/14/2015 Visit Plan: Hypertension - well controll ed - continue with current medications, continue with no added salt diet. Pt has been encouraged to exercise daily.The pt has been advised to call the office if there are any acute concerns about change in blood pressure readings at home.Diabetes Mellitus - controlled - per recent FSBS [...] glucose readings are starting to become less controlled.Yeas infection of vaginal tissue - stop invokana and start on diflucan treatment - check Hgba1c 07/17/2015 Appointment: Mila Nicole WPtel: [facility] [place] (15 min) Moderate 07/17/2015 Patient Education: Patient Medication Summary Completed 07/17/2015 Patient Education: Obesity Completed 07/17/2015 Visit Plan: Follow up from ED - pt was t reated for a UTI - pt was also [...] glucose readings are starting to become less controlled.Hypertension - well controlled - continue with current medications, continue with no added salt diet. Pt has been encouraged to exercise daily.The pt has been advised to call the office if there are any acute concerns about change in blood pressure readings at home.Hypothyroidism - pt with chronic hypothyroidism, continue with current medication, will monitor pt to signs or symptoms of lack of adequate supplementation. Pt is to continue with current dose of medication unless directed otherwise. Check labs at regular intervals wither q 3 months or q 6 months based on previous levels of control. 03/25/2015 Visit Plan: Follow up from ED - pt was t reated for a UTI - pt was also [...] glucose readings are starting to become less controlled.Hypertension - well controlled - continue with current medications, continue with no added salt diet. Pt has been encouraged to exercise daily.The pt has been advised to call the office if there are any acute concerns about change in blood pressure readings at home.Hypothyroidism - pt with chronic hypothyroidism, continue with [...] Completed 03/25/2015 [facility] [phone] [facility] (15 min) Moderate 01/14/2015 Visit Plan: Diabetes Mellitus - controll ed - per recent FSBS reports. I have [...] glucose readings are starting to become less controlled.Hypertension - well controlled - continue with current medications, continue with no added salt diet. Pt has been encouraged to exercise daily.The pt has been advised to call the office if there are any acute concerns about change in blood pressure readings at home.Hypothyroidism - pt with chronic hypothyroidism, continue with current medication, will monitor pt to signs or symptoms of lack of adequate supplementation. Pt is to continue with current dose of medication unless directed otherwise. Check labs at regular intervals wither q 3 months or q 6 months based on previous levels of control. 12/04/2014 Appointment: [facility] [phone] [facility] (15 min) Moderate 12/04/2014 Patient Education: [...] the office next week for practitioner to review.The pt is to call for acute concerns.Diabetes Mellitus - Uncontrolled - per recent FSBS [...] glucose readings are starting to become less controlled.I have recommended for the patient to follow more strictly to the diabetic diet as discussed in clinic to allow for greater blood glucose control. 08/14/2014 Appointment: [facility] [phone] [facility] [place] New Patient 08/14/2014 Patient [...] on diflucan treatment - check Hgba1c . Follow up from ED - pt [...] change in blood pressure readings at home. stop the glimepiride continue with metformin and [...] - continue with gabapentin Monitor your blood p ressure at home [...]
--- OUTSIDE RECORDS SUMMARY | 2019-03-16 19:24 | XMS REPORT | CCD ---
Author Author Melinda Nicole Organization Mila Nicole MD, [facility] Address [address] [place] [address] Phone Care Team Providers Care Cell Operator Name Role Phone PP Unavailable CCM Unavailable Summary Purpose Interface Exchange Insurance Providers Payer name Policy type / Coverage type Covered libertarian ID Effective Begin Date Effective End Date WPS Medicare Part B Medicare Part B [id number] Unknown Unknown AARP Medicare Part B [id number] Unknown Unknown Family history Mother Diagnosis Age At Onset Arthritis Unknown Father Diagnosis Age At Onset Hypertension Unknown Diabetes Unknown Stroke Unknown Cancer Unknown Social History Social History Element Codes Description Effective Dates Marital status Unknown M jose enrique Anna 06/18/2016 Number of children Unknown 3 08/14/[address]: 760825892 Never smoker 08/14/[address]: 182640115 Never drinks alcohol 08/14/2014 Allergies, Adverse Reactions, [...] Date Stop Date Sta tus Fill Instructions Victoza 2-Dariusz 0.6 mg /0.1 mL (18 mg/3 mL) subcutaneous pen injector RxNorm: 633358 1.2 Milligram(s) SQ daily 09/14/2016 01/11/2017 Active Lexapro 5 mg tablet RxNorm: 253971 1 Tablet(s) PO QHS 09/14/2016 12/12/2016 Active metformin 500 mg tablet RxNorm: 540048 1 Tablet(s) PO UD 1.5 in morning, noon a nd 1 at bedtime 09/08/2016 09/02/2017 Active glimepiride 4 mg tablet RxNorm: 817217 TAKE 1 TABLET BY MOUTH ONCE DAILY 07/31/2016 09/13/2016 In active Generic For:*AMARYL 4MG 07/31/2016 9:02 :38 AM Victoza 2-Dariusz 0.6 mg /0.1 mL (18 mg/3 mL) subcutaneous pen injector RxNorm: 361349 1.2 Milligram(s) SQ daily 05/18/2016 09/13/2016 Inactive Victoza 2-Dariusz 0.6 mg /0.1 mL (18 mg/3 mL) subcutaneous pen injector RxNorm: 924708 1.2 Milligram(s) SQ daily 04/16/2016 05/17/2016 Inactive levothyroxine 50 mcg tablet RxNorm: 646029 TAKE 1 TABLET BY MOUT H ONCE DAILY 04/08/2016 12/03/2016 Ac tive Generic For:SYNTHROID 50MCG TAB 017 9:05:40 AM levothyroxine 50 mcg tablet RxNorm: 660758 1 Tablet(s) PO daily TAKE 1 TABLET BY MOUTH ONCE DAILY 04/08/2016 12/03/2016 Active Generic For:SYNTHROID 50MCG TAB N O T I C E PRESCRIPTION PREVIOUSLY AUTHORIZED BY DOCTOR:HENRY BAIG bisoprolol 5 mg-hydr ochlorothiazide 6.25 mg tablet RxNorm: 474908 1 Tablet(s) PO BID 03/23/2016 03/17/2017 Ac tive gabapentin 600 mg ta blet RxNorm: 687238 1 Capsule(s) PO TID 03/19/2016 No Stop Date Active Victoza 2-Dariusz 0.6 mg /0.1 mL (18 mg/3 mL) subcutaneous pen injector RxNorm: 582851 0.6 Milligram(s) SQ daily 03/19/2016 04/15/2016 Inactive Lexapro 5 mg tablet RxNorm: 487591 1 Tablet(s) PO QHS 03/19/2016 06/16/2016 Inactive glimepiride 4 mg tablet RxNorm: 241808 1 Tablet(s) PO daily 12/09/2015 06/05/2016 Inactive Victoza 3-Dariusz 0.6 mg /0.1 mL (18 mg/3 mL) subcutaneous pen injector RxNorm: 350985 0.6 Milligram(s) SQ daily x2 weeks, then 1.2 mg SQ daily 12/02/2015 03/18/2016 Inactive metformin 500 mg tablet RxNorm: 000232 1 Tablet(s) PO UD 1.5 in morning, noon a nd 1 at bedtime 08/14/2015 08/07/2016 Inactive gabapentin 600 mg ta blet RxNorm: 170688 1 Capsule(s) PO TID S HE IS ONLY TAKING 1 QD 08/14/2015 03/18/2016 In active fluticasone 50 mcg/a ctuation nasal spray,suspension RxNorm: 903655 [place] NASAL ONE SPRAY IN EACH NOSTRIL TWICE DAILY 07/26/2015 02/20/2016 Inactive fluticasone 50 mcg/a ctuation nasal spray,suspension RxNorm: 579013 [place] NASAL ONE SPRAY IN EACH NOSTRIL TWICE DAILY 07/26/2015 07/25/2015 Inactive bisoprolol 5 mg-hydr ochlorothiazide 6.25 mg tablet RxNorm: 141487 1 Tablet(s) PO daily 1 Tablet(s) PO BID 07/17/2015 01/12/2016 Inactive metformin 500 mg tablet RxNorm: 470017 1 Tablet(s) PO TID 1 Tablet(s) PO TID 07/17/2015 08/13/2015 In active Diflucan 100 mg tablet RxNorm: 063655 1 Tablet(s) PO daily 07/17/2015 07/21/2015 Inactive Zetia 10 mg tablet RxNorm: 145543 1 Tablet(s) PO daily 06/10/2015 06/03/2016 Inactive bisoprolol 5 mg-hydr ochlorothiazide 6.25 mg tablet RxNorm: 825212 1 Tablet(s) PO BID 04/18/2015 07/16/2015 Inactive metformin 500 mg tablet RxNorm: 594809 1 Tablet(s) PO TID 03/01/2015 06/28/2015 Inactive glimepiride 4 mg tablet RxNorm: 177990 1 Tablet(s) PO daily 01/31/2015 01/30/2015 Inactive levothyroxine 50 mcg tablet RxNorm: 119638 TAKE 1 TABLET BY MOUT H ONCE DAILY 01/31/2015 09/27/2015 In active Generic For:SYNTHROID 50MCG TAB N O T I C E PRESCRIPTION PREVIOUSLY AUTHORIZED BY DOCTOR:HENRY BAIG glimepiride 4 mg tablet RxNorm: 961674 1 Tablet(s) PO daily 01/31/2015 07/29/2015 Inactive Invokana 100 mg tablet RxNorm: 2926961 1 Tablet(s) PO daily 12/12/2014 07/16/2015 Inactive bisoprolol 5 mg-hydr ochlorothiazide 6.25 mg tablet RxNorm: 368515 1 Tablet(s) PO BID 08/27/2014 02/22/2015 Inactive metformin 500 mg tablet RxNorm: 373387 1 Tablet(s) PO TID 08/10/2014 12/07/2014 Inactive metformin 500 mg tablet RxNorm: 300342 1 Tablet(s) PO TID 08/10/2014 08/09/2014 Inactive Fish Oil 1,000 mg ca psule RxNorm: 1 Capsule(s) PO daily No Start Date Active pen needle, diabetic 31 gauge x 1/6" RxNorm: Miscellaneous N o Start Date Active bisoprolol-hydrochlo rothiazide oral RxNorm: [address] art Date 08/26/2014 Inactive levothyroxine 50 mcg tablet RxNorm: 176701 1 Tablet(s) PO daily No Start Date 01/30/2015 Inactive Invokana 100 mg tablet RxNorm: 4852905 1 Tablet(s) PO daily No Start Date 12/11/2014 Inactive Victoza 3-Dariusz 0.6 mg /0.1 mL (18 mg/3 mL) subcutaneous pen injector RxNorm: 716724 0.6 Milligram(s) SQ daily x2 weeks, then 1.2 mg SQ daily No Start Date 12/01/2015 Inactive Zetia 10 mg tablet RxNorm: 439412 1 Tablet(s) PO BID No Start Date 03/18/2016 Inactive gabapentin 300 mg ca psule RxNorm: 000134 1 Capsule(s) PO BID No Start Date [...] Metabolic Ord15 CALCIUM 9.0 mg/dL 09/08/2016 %Hba1C Dbn298 % HbA1c 39575-0 7.5 % 09/08/2016 %Hba1C Nna541 Gluc Ave 169 mg/dL 09/08/2016 Tsh Ord6 hTSH II 2.64 uIU/mL 03/13/2016 %Hba1C Cvv164 % HbA1c 62140-8 8.2 % 03/13/2016 %Hba1C Iwj312 Gluc Ave 189 mg/dL 03/13/2016 Lipid Ord30 CHOL 233 mg/dL 03/13/2016 Lipid Ord30 HDL 46.0 mg/dl 03/13/2016 Lipid Ord30 TRIG 276 mg/dL 03/13/2016 Lipid Ord30 LDL 132 mg/dL 03/13/2016 Lipid Ord30 C/HDL 5.1 Ratio 03/13/2016 Free T4 Ury199 FREE T4 0.94 ng/dL 03/13/2016 Cbc With [...] 30.3 pg 03/13/2016 Cbc With Differential Ord2 [place]% 6.1 % 03/13/2016 Cbc With Differential Ord2 [...] 1.63 K/ul 03/13/2016 Cbc With Differential Ord2 [place] ABS# 0.3 K/ul 03/13/2016 Cbc With Differential Ord2 Eos ABS# 0.1 K/ul 03/13/2016 Cbc With Differential Ord2 Baso ABS# 0.0 K/ul 03/13/2016 Comp Metabolic Fvz258 NA 139 mEq/L 03/13/2016 Comp Metabolic Vnc706 K 4.3 mEq/L 03/13/2016 Comp Metabolic Rnv895 CL 103 mEq/L 03/13/2016 Comp Metabolic Daz708 CO2 28.0 mEq/L 03/13/2016 Comp Metabolic Uek041 AN ION GAP 12 03/13/2016 Comp Metabolic Ipu129 GL UCOSE 200 mg/dL 03/13/2016 Comp Metabolic Qkn747 Cr eat 0.9 mg/dL 03/13/2016 Comp Metabolic Dbn696 eG FR 69 ml/min/1.73m2 03/13 Comp Metabolic Gqy913 BUN 19 mg/dL 03/13/2016 Comp Metabolic Fra295 B/ C Ratio 22.4 Ratio 03/13/2016 Comp Metabolic Cuh214 CA LCIUM 9.0 mg/dL 03/13/2016 Comp Metabolic Ixp177 AL K PHOS 57 U/L 03/13/2016 Comp Metabolic Prb467 T(SGOT) 13 U/L 03/13/2016 Comp Metabolic Ihc414 AL T(SGPT) 16 U/L 03/13/2016 Comp Metabolic Ayb995 BI LI T 0.4 mg/dL 03/13/2016 Comp Metabolic Sue987 AL BUMIN 4.2 g/dL 03/13/2016 Comp Metabolic Wcl106 TP RO 6.3 g/dL 03/13/2016 Comp Metabolic Ist302 GL OB 2.1 g/dL 03/13/2016 Comp Metabolic Erm446 A/ G Ratio 2.0 Ratio 03/13/2016 Comp Metabolic Dwd693 Os mo 285 mOsmo 03/13/2016 %Hba1C Tsg652 % HbA1c 15247-0 8.3 % 11/14/2015 %Hba1C Vsc483 Gluc Ave 192 mg/dL 11/14/2015 Lipid Ord30 CHOL 210 mg/dL 07/19/2015 Lipid Ord30 HDL 43.0 mg/dl 07/19/2015 Lipid Ord30 TRIG 311 mg/dL 07/19/2015 Lipid Ord30 LDL 105 mg/dL 07/19/2015 Lipid Ord30 C/HDL 4.9 Ratio 07/19/2015 %Hba1C Ark435 % HbA1c 32040-1 7.6 % 07/19/2015 %Hba1C Yrd305 Gluc Ave 171 mg/dL 07/19/2015 Cbc With [...] 28.8 pg 07/19/2015 Cbc With Differential Ord2 [place]% 6.1 % 07/19/2015 Cbc With Differential Ord2 [...] 1.63 K/ul 07/19/2015 Cbc With Differential Ord2 [place] ABS# 0.3 K/ul 07/19/2015 Cbc With Differential Ord2 Eos ABS# 0.1 K/ul 07/19/2015 Cbc With Differential Ord2 Baso ABS# 0.0 K/ul 07/19/2015 Cbc With Differential Ord2 New Analyzer Notice Please note new ref ranges s tarting 03-27-2015 due to implemntation of new five part differential hematolgy analyzer. 07/19/2015 Comp Metabolic Tkh783 NA 138 mEq/L 07/19/2015 Comp Metabolic Mto610 K 4.3 mEq/L 07/19/2015 Comp Metabolic Sdq426 CL 100 mEq/L 07/19/2015 Comp Metabolic Jlm056 CO2 33.0 mEq/L 07/19/2015 Comp Metabolic Pxi953 AN ION GAP 9 07/19/2015 Comp Metabolic Wko655 GL UCOSE 149 mg/dL 07/19/2015 Comp Metabolic Bbl134 Cr eat 0.9 mg/dL 07/19/2015 Comp Metabolic Ful708 eG FR 62 ml/min/1.73m2 07/18 Comp Metabolic Rcc219 BUN 19 mg/dL 07/19/2015 Comp Metabolic Amb587 B/ C Ratio 20.2 Ratio 07/19/2015 Comp Metabolic Fso125 CA LCIUM 9.5 mg/dL 07/19/2015 Comp Metabolic Biz944 AL K PHOS 52 U/L 07/19/2015 Comp Metabolic Oga251 T(SGOT) 15 U/L 07/19/2015 Comp Metabolic Zhb180 AL T(SGPT) 14 U/L 07/19/2015 Comp Metabolic Jdm352 BI LI T 0.5 mg/dL 07/19/2015 Comp Metabolic Ehs313 AL BUMIN 4.4 g/dL 07/19/2015 Comp Metabolic Vhf257 TP RO 6.4 g/dL 07/19/2015 Comp Metabolic Pdv405 GL OB 2.0 g/dL 07/19/2015 Comp Metabolic Hgs068 A/ G Ratio 2.2 Ratio 07/19/2015 Comp Metabolic Jhq583 Os mo 281 mOsmo 07/19/2015 Free T4 Ysx340 FREE T4 0.92 ng/dL 07/19/2015 Tsh Ord6 hTSH II 1.95 uIU/mL 07/19/2015 Microalbumin Zev285 Micr oAlb 0.4 mg/dL 07/19/2015 Comp Metabolic Jho013 NA 137 mEq/L 12/04/2014 Comp Metabolic Umm693 K 4.0 mEq/L 12/04/2014 Comp Metabolic Fjq105 CL 100 mEq/L 12/04/2014 Comp Metabolic Byu805 CO2 29.0 mEq/L 12/04/2014 Comp Metabolic Ofb912 AN ION GAP 12 12/04/2014 Comp Metabolic Nag113 GL UCOSE 171 mg/dL 12/04/2014 Comp Metabolic Ehr012 Cr eat 1.0 mg/dL 12/04/2014 Comp Metabolic Fpm416 eG FR 60 ml/min/1.73m2 12/04 Comp Metabolic Zmj920 BUN 25 mg/dL 12/04/2014 Comp Metabolic Zyc485 B/ C Ratio 25.8 Ratio 12/04/2014 Comp Metabolic Lvh821 CA LCIUM 9.4 mg/dL 12/04/2014 Comp Metabolic Nyb080 AL K PHOS 60 U/L 12/04/2014 Comp Metabolic Cwp008 T(SGOT) 13 U/L 12/04/2014 Comp Metabolic Rwu814 AL T(SGPT) 17 U/L 12/04/2014 Comp Metabolic Ama442 BI LI T 0.4 mg/dL 12/04/2014 Comp Metabolic Mkq435 AL BUMIN 4.4 g/dL 12/04/2014 Comp Metabolic Rsn504 TP RO 6.9 g/dL 12/04/2014 Comp Metabolic Vbv874 GL OB 2.5 g/dL 12/04/2014 Comp Metabolic Cfm865 A/ G Ratio 1.8 Ratio 12/04/2014 Comp Metabolic Eup232 Os mo 282 mOsmo 12/04/2014 Tsh Ord6 hTSH II 1.78 uIU/mL 12/04/2014 %Hba1C Ooz415 % HbA1c 50976-6 8.3 % 12/04/2014 %Hba1C Gxk066 Gluc Ave 192 mg/dL 12/04/2014 Free T4 Gqx323 FREE T4 0.85 ng/dL 12/04/2014 Lipid Ord30 [...] Formatting Model/CDA Sections, Assigned to/Nery Daniels CPT-4: 05635Uqcvbfc 11/14/2015 ADMIN INFLUENZA VIRU S VAC CPT-4: Y0470Twjqgga 11/14/2015 ADMIN INFLUENZA VIRU S VAC Formatting Model/CDA Sections, Assigned to/Nery Daniels CPT-4: X7905Mhhonoc 12/04/2014 FLU VACC 4 ANABELLE 3 YRS PLUS IM SNOMED CT: 45779323 CPT-4: 96898Dddrivb 12/04/2014 Vital Signs Date Vital 09/14/2016 Blood Pressure 1: 128/86 Code: 8480-6 BMI: 33.8 Code: 36396-4 Heart Rate 1: 88 bpm Height: 5' SpO2: 96% Weight: 173 lbs 06/18/2016 Blood Pressure 1: 122/74 Code: 8480-6 BMI: 34.8 Code: 70737-4 Heart Rate 1: 78 bpm Height: 5' SpO2: 98% Weight: 178 lbs 04/16/2016 Blood Pressure 1: 134/68 Code: 8480-6 BMI: 35.0 Code: 59401-3 Heart Rate 1: 67 bpm Height: 5' SpO2: 97% Weight: 179 lbs 03/19/2016 Blood Pressure 1: 132/74 Code: 8480-6 BMI: 34.6 Code: 36038-0 Heart Rate 1: 74 bpm Height: 5' SpO2: 97% Weight: 177 lbs 11/14/2015 Blood Pressure 1: 132/70 Code: 8480-6 BMI: 35.2 Code: 84466-7 Heart Rate 1: 68 bpm Height: 5' Weight: 180 lbs 08/14/2015 Blood Pressure 1: 122/74 Code: 8480-6 BMI: 33.8 Code: 69570-5 Heart Rate 1: 73 bpm Height: 5' SpO2: 93% Weight: 173 lbs 07/17/2015 Blood Pressure 1: 138/78 Code: 8480-6 BMI: 34.0 Code: 60873-4 Heart Rate 1: 85 bpm Height: 5' SpO2: 97% Weight: 174 lbs 03/25/2015 Blood Pressure 1: 130/78 Code: 8480-6 BMI: 33.2 Code: 21356-9 Heart Rate 1: 77 bpm Height: 5' SpO2: 97% Weight: 170 lbs 12/04/2014 Blood Pressure 1: 120/74 Code: 8480-6 BMI: 35.4 Code: 56768-5 Heart Rate 1: 67 bpm Height: 5' SpO2: 94% Weight: 181 lbs 5 oz 08/14/2014 Blood Pressure 1: 132/68 Code: 8480-6 BMI: 32.1 Code: 12879-8 Heart Rate 1: 62 bpm Height: 5'3" [...] Encounters Encounter Performer Loca tion Codes Date ([id number]) [id number] EST. P ATIENT, LEVEL IV Diagnosis: Type 2 diabetes mellitus with hyperglycemia[ICD10: E11.65] Diagnosis: Essential (primary) hypertension[ICD10: I10] Diagnosis: Major depressive disorder, recurrent, mild[ICD10: F33.0] Mila Nicole MD, [facility] CPT-4: 80095 09/14/2016 ([id number]) 48420 EST. 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 P ATIENT, LEVEL IV Diagnosis: Type 2 diabetes mellitus with hyperglycemia[ICD10: E11.65] Diagnosis: Essential (primary) hypertension[ICD10: I10] Mila Nicole MD, [facility] CPT-4: 31607 04/16/2016 [id number]) 81849 EST. 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 P ATIENT, LEVEL IV Diagnosis: Type 2 diabetes mellitus with hyperglycemia[ICD10: E11.65] Diagnosis: Encounter for immunization[ICD10: Z23] Diagnosis: Essential (primary) hypertension[ICD10: I10] Mila Nicole MD, C CPT-4: 82262 11/14/2015 ([id number]) 49757 EST. P ATIENT, LEVEL IV Diagnosis: Type 2 diabetes mellitus with hyperglycemia[ICD10: E11.65] Diagnosis: Essential (primary) hypertension[ICD10: I10] Diagnosis: Low back pain[ICD10: M54.5] Mila Nicole MD, [facility] CPT-4: 08695 08/14/2015 ([id number]) 53148 EST. P ATIENT, LEVEL IV Diagnosis: Type 2 diabetes mellitus with hyperglycemia[ICD10: E11.65] Diagnosis: Essential (primary) hypertension[ICD10: I10] Diagnosis: Hypothyroidism, unspecified[ICD10: E03.9] Mila Nicole MD, C CPT-4: 37820 07/17/2015 ([id number]) 76030 EST. P ATIENT, LEVEL IV Diagnosis: Essential (primary) hypertension[ICD10: I10] Diagnosis: Type 2 diabetes mellitus with hyperglycemia[ICD10: E11.65] Diagnosis: Headache[ICD10: R51] Gardenia Nicole MD, [facility] CPT-4: 96258 03/25/2015 ([id number]) 83489 EST. P ATIENT, LEVEL IV Diagnosis: ESSENTIAL HYPERTENSION[ICD9: 401.9] Diagnosis: DIABETES TYPE II[ICD9: 250.00] Diagnosis: Aortic stenosis[ICD9: 424.1] Mila Nicole MD, [facility] CPT-4: 67087 12/04/2014 ([id number]) OFFICE VISI T, NEW - LEVEL 4 Diagnosis: ESSENTIAL HYPERTENSION[ICD9: 401.9] Diagnosis: Diabetes mellitus out of control[ICD9: 250.02] Mila Nicole MD, C CPT-4: 00579 08/14/2014 Plan of Care Planned Activity Notes [...] exposure. No change in current medications. 09/14/2016 Patient Education: Patient Medication Summary Completed [...] at home. 06/18/2016 Appointment: [facility] ([facility] min) Moderate 06/18/2016 Patient Education: [...] home. 04/16/2016 Appointment: [facility] [phone] [facility] (15 min) Moderate 04/16/2016 Patient Education: [...] gabapentin 03/19/2016 Appointment: [facility] [phone] [facility] (15 min) Moderate 03/19/2016 Patient Education: [...] at home. 11/14/2015 Appointment: Mila Nicole WPtel: [phone] [facility] (15 min) Moderate 11/14/2015 Patient Education: [...] check Hgba1c 07/17/2015 Appointment: [facility] [phone] [facility] (15 min) Moderate 07/17/2015 Patient Education: [...] Completed 03/25/2015 Appointment: [facility] [phone] [facility] (15 min) Moderate 01/14/2015 Visit Plan: [...] control. 12/04/2014 Appointment: [facility] [phone] [facility] (15 min) Moderate 12/04/2014 Patient Education: [...] glucose control. 08/14/2014 Appointment: Mila Nicole [facility]Ptel[facility] [place] New Patient 08/14/2014 Patient [...]
--- OUTSIDE RECORDS SUMMARY | 2019-03-16 19:25 | XMS REPORT | CCD ---
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 Name Role Phone PP Unavailable CCM Unavailable Summary Purpose Interface Exchange Insurance Providers Payer name Policy type / Coverage type Covered libertarian ID Effective Begin Date Effective End Date WPS Medicare Part B Medicare Part B [id number] Unknown Unknown AARP Medicare Part B [id number] Unknown Unknown Family history Mother Diagnosis Age At Onset Arthritis Unknown Father Diagnosis Age At Onset Hypertension Unknown Diabetes Unknown Stroke Unknown Cancer Unknown Social History Social History Element Codes Description Effective Dates Marital status Unknown M jose enrique Anna 06/18/2016 Number of children Unknown 3 08/14/[address]: 434028513 Never smoker 08/14/[address]: 724320032 Never drinks alcohol 08/14/2014 Allergies, Adverse Reactions, Alerts Allergies, Adverse Reactions, Alerts data not found Past Medical History Illness Codes Condition Status Onset Date Resolved Date Essential (primary) hypertension ICD-9: 401.9 ICD-10: I10 Active 08/13/2014 Unknown 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 ICD-9: 250.60 ICD-10: E11.43 Active 03/19/2016 Unknown Type 2 diabetes anne itus with hyperglycemia ICD-9: 250.00 ICD-10: E11.65 Active 12/03/2014 Unknown Encounter for immuni zation ICD-9: V04.81 [...] hypertension ICD-9: 401.9 ICD-10: I10 08/13/2014 Active 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 ICD-9: 250.60 ICD-10: E11.43 03/19/2016 Active Type 2 diabetes anne itus with hyperglycemia ICD-9: 250.00 ICD-10: E11.65 12/03/2014 Active Encounter for immuni zation ICD-9: V04.81 [...] (18 mg/3 mL) subcutaneous pen injector RxNorm: 497060 1.2 Milligram(s) SQ daily 09/14/2016 01/11/2017 Active Lexapro 5 mg tablet RxNorm: 134635 1 Tablet(s) PO QHS 09/14/2016 12/12/2016 Active metformin 500 mg tablet RxNorm: 724334 1 Tablet(s) PO UD 1.5 in morning, noon a nd 1 at bedtime 09/08/2016 09/02/2017 Active glimepiride 4 mg tablet RxNorm: 698761 TAKE 1 TABLET BY MOUTH ONCE DAILY 07/31/2016 09/13/2016 In active Generic For:*AMARYL 4MG 07/31/2016 9:02 :38 AM Victoza 2-Dariusz 0.6 mg /0.1 mL (18 mg/3 mL) subcutaneous pen injector RxNorm: 436919 1.2 Milligram(s) SQ daily 05/18/2016 09/13/2016 Inactive Victoza 2-Dariusz 0.6 mg /0.1 mL (18 mg/3 mL) subcutaneous pen injector RxNorm: 343766 1.2 Milligram(s) SQ daily 04/16/2016 05/17/2016 Inactive levothyroxine 50 mcg tablet RxNorm: 919376 TAKE 1 TABLET BY MOUT H ONCE DAILY 04/08/2016 12/03/2016 Ac tive Generic For:SYNTHROID 50MCG TAB 017 9:05:40 AM levothyroxine 50 mcg tablet RxNorm: 356448 1 Tablet(s) PO daily TAKE 1 TABLET BY MOUTH ONCE DAILY 04/08/2016 12/03/2016 Active Generic For:SYNTHROID 50MCG TAB N O T I C E PRESCRIPTION PREVIOUSLY AUTHORIZED BY DOCTOR:HENRY BAIG bisoprolol 5 mg-hydr ochlorothiazide 6.25 mg tablet RxNorm: 236258 1 Tablet(s) PO BID 03/23/2016 03/17/2017 Ac tive gabapentin 600 mg ta blet RxNorm: 199742 1 Capsule(s) PO TID 03/19/2016 No Stop Date Active Victoza 2-Dariusz 0.6 mg /0.1 mL (18 mg/3 mL) subcutaneous pen injector RxNorm: 129106 0.6 Milligram(s) SQ daily 03/19/2016 04/15/2016 Inactive Lexapro 5 mg tablet RxNorm: 933777 1 Tablet(s) PO QHS 03/19/2016 06/16/2016 Inactive glimepiride 4 mg tablet RxNorm: 452046 1 Tablet(s) PO daily 12/09/2015 06/05/2016 Inactive Victoza 3-Dariusz 0.6 mg /0.1 mL (18 mg/3 mL) subcutaneous pen injector RxNorm: 581441 0.6 Milligram(s) SQ daily x2 weeks, then 1.2 mg SQ daily 12/02/2015 03/18/2016 Inactive metformin 500 mg tablet RxNorm: 729395 1 Tablet(s) PO UD 1.5 in morning, noon a nd 1 at bedtime 08/14/2015 08/07/2016 Inactive gabapentin 600 mg ta blet RxNorm: 186821 1 Capsule(s) PO TID S HE IS ONLY TAKING 1 QD 08/14/2015 03/18/2016 In active fluticasone 50 mcg/a ctuation nasal spray,suspension RxNorm: 360271 Dora NASAL ONE SPRAY IN EACH NOSTRIL TWICE DAILY 07/26/2015 02/20/2016 Inactive fluticasone 50 mcg/a ctuation nasal spray,suspension RxNorm: 454796 Dora NASAL ONE SPRAY IN EACH NOSTRIL TWICE DAILY 07/26/2015 07/25/2015 Inactive bisoprolol 5 mg-hydr ochlorothiazide 6.25 mg tablet RxNorm: 857030 1 Tablet(s) PO daily 1 Tablet(s) PO BID 07/17/2015 01/12/2016 Inactive metformin 500 mg tablet RxNorm: 778695 1 Tablet(s) PO TID 1 Tablet(s) PO TID 07/17/2015 08/13/2015 In active Diflucan 100 mg tablet RxNorm: 601332 1 Tablet(s) PO daily 07/17/2015 07/21/2015 Inactive Zetia 10 mg tablet RxNorm: 515525 1 Tablet(s) PO daily 06/10/2015 06/03/2016 Inactive bisoprolol 5 mg-hydr ochlorothiazide 6.25 mg tablet RxNorm: 397186 1 Tablet(s) PO BID 04/18/2015 07/16/2015 Inactive metformin 500 mg tablet RxNorm: 610904 1 Tablet(s) PO TID 03/01/2015 06/28/2015 Inactive glimepiride 4 mg tablet RxNorm: 350110 1 Tablet(s) PO daily 01/31/2015 01/30/2015 Inactive levothyroxine 50 mcg tablet RxNorm: 160828 TAKE 1 TABLET BY MOUT H ONCE DAILY 01/31/2015 09/27/2015 In active Generic For:SYNTHROID 50MCG TAB N O T I C E PRESCRIPTION PREVIOUSLY AUTHORIZED BY DOCTOR:HENRY BAIG glimepiride 4 mg tablet RxNorm: 122333 1 Tablet(s) PO daily 01/31/2015 07/29/2015 Inactive Invokana 100 mg tablet RxNorm: 1764991 1 Tablet(s) PO daily 12/12/2014 07/16/2015 Inactive bisoprolol 5 mg-hydr ochlorothiazide 6.25 mg tablet RxNorm: 913276 1 Tablet(s) PO BID 08/27/2014 02/22/2015 Inactive metformin 500 mg tablet RxNorm: 391196 1 Tablet(s) PO TID 08/10/2014 12/07/2014 Inactive metformin 500 mg tablet RxNorm: 504300 1 Tablet(s) PO TID 08/10/2014 08/09/2014 Inactive Fish Oil 1,000 mg ca psule RxNorm: 1 Capsule(s) PO daily No Start Date Active pen needle, diabetic 31 gauge x 1/6" RxNorm: Miscellaneous N o Start Date Active bisoprolol-hydrochlo rothiazide oral RxNorm: [address] art Date 08/26/2014 Inactive levothyroxine 50 mcg tablet RxNorm: 761449 1 Tablet(s) PO daily No Start Date 01/30/2015 Inactive Invokana 100 mg tablet RxNorm: 8854550 1 Tablet(s) PO daily No Start Date 12/11/2014 Inactive Victoza 3-Dariusz 0.6 mg /0.1 mL (18 mg/3 mL) subcutaneous pen injector RxNorm: 482288 0.6 Milligram(s) SQ daily x2 weeks, then 1.2 mg SQ daily No Start Date 12/01/2015 Inactive Zetia 10 mg tablet RxNorm: 742061 1 Tablet(s) PO BID No Start Date 03/18/2016 Inactive gabapentin 300 mg ca psule RxNorm: 630487 1 Capsule(s) PO BID No Start Date 08/13/2015 Inactive Medication Administered No Medication Administered data Immunizations Vaccine Codes Date Status Influenza CVX: 141 09/01 /2016 completed Influenza CVX: 141 12/04 completed Assessments Condition Codes Effectiv e Dates Type 2 diabetes mellitus with diabetic a utonomic (poly)neuropathy ICD-10: E11.43 ICD-9: 250.60 06/18/2016 Essential (primary) hypertension ICD -10: I10 ICD-9: 401.9 06/18/2016 Type 2 diabetes mellitus with hyperglycemia ICD-10: E11.65 ICD-9: 250.00 04/16/2016 Encounter for immunization ICD-10: Z 23 ICD-9: [...] For Visit Effective Dates Notes diabetes mellitus 06/18/2016 medication follow up 04/16/2016 [...] Metabolic Ord15 CALCIUM 9.0 mg/dL 09/08/2016 %Hba1C Oae220 % HbA1c 93903-1 7.5 % 09/08/2016 %Hba1C Oxo775 Gluc Ave 169 mg/dL 09/08/2016 Tsh Ord6 hTSH II 2.64 uIU/mL 03/13/2016 %Hba1C Jpl398 % HbA1c 92777-2 8.2 % 03/13/2016 %Hba1C Jix781 Gluc Ave 189 mg/dL 03/13/2016 Lipid Ord30 CHOL 233 mg/dL 03/13/2016 Lipid Ord30 HDL 46.0 mg/dl 03/13/2016 Lipid Ord30 TRIG 276 mg/dL 03/13/2016 Lipid Ord30 LDL 132 mg/dL 03/13/2016 Lipid Ord30 C/HDL 5.1 Ratio 03/13/2016 Free T4 Wgs266 FREE T4 0.94 ng/dL 03/13/2016 Cbc With [...] 30.3 pg 03/13/2016 Cbc With Differential Ord2 [place]% 6.1 % 03/13/2016 Cbc With Differential Ord2 [...] 1.63 K/ul 03/13/2016 Cbc With Differential Ord2 [place] ABS# 0.3 K/ul 03/13/2016 Cbc With Differential Ord2 Eos ABS# 0.1 K/ul 03/13/2016 Cbc With Differential Ord2 Baso ABS# 0.0 K/ul 03/13/2016 Comp Metabolic Ccu063 NA 139 mEq/L 03/13/2016 Comp Metabolic Oqo825 K 4.3 mEq/L 03/13/2016 Comp Metabolic Lrv423 CL 103 mEq/L 03/13/2016 Comp Metabolic Hfh615 CO2 28.0 mEq/L 03/13/2016 Comp Metabolic Iba405 AN ION GAP 12 03/13/2016 Comp Metabolic Hoc865 GL UCOSE 200 mg/dL 03/13/2016 Comp Metabolic Dxm154 Cr eat 0.9 mg/dL 03/13/2016 Comp Metabolic Iuf256 eG FR 69 ml/min/1.73m2 03/13 Comp Metabolic Sxt497 BUN 19 mg/dL 03/13/2016 Comp Metabolic Orq265 B/ C Ratio 22.4 Ratio 03/13/2016 Comp Metabolic Dwc447 CA LCIUM 9.0 mg/dL 03/13/2016 Comp Metabolic Psu365 AL K PHOS 57 U/L 03/13/2016 Comp Metabolic Osd856 T(SGOT) 13 U/L 03/13/2016 Comp Metabolic Tkj964 AL T(SGPT) 16 U/L 03/13/2016 Comp Metabolic Jgz054 BI LI T 0.4 mg/dL 03/13/2016 Comp Metabolic Zmj694 AL BUMIN 4.2 g/dL 03/13/2016 Comp Metabolic Bxm822 TP RO 6.3 g/dL 03/13/2016 Comp Metabolic Xja430 GL OB 2.1 g/dL 03/13/2016 Comp Metabolic Khk874 A/ G Ratio 2.0 Ratio 03/13/2016 Comp Metabolic Rpy927 Os mo 285 mOsmo 03/13/2016 %Hba1C Swh927 % HbA1c 33096-2 8.3 % 11/14/2015 %Hba1C But302 Gluc Ave 192 mg/dL 11/14/2015 Lipid Ord30 CHOL 210 mg/dL 07/19/2015 Lipid Ord30 HDL 43.0 mg/dl 07/19/2015 Lipid Ord30 TRIG 311 mg/dL 07/19/2015 Lipid Ord30 LDL 105 mg/dL 07/19/2015 Lipid Ord30 C/HDL 4.9 Ratio 07/19/2015 %Hba1C Pod209 % HbA1c 87717-4 7.6 % 07/19/2015 %Hba1C Ycg368 Gluc Ave 171 mg/dL 07/19/2015 Cbc With [...] 28.8 pg 07/19/2015 Cbc With Differential Ord2 [place]% 6.1 % 07/19/2015 Cbc With Differential Ord2 [...] 1.63 K/ul 07/19/2015 Cbc With Differential Ord2 [place] ABS# 0.3 K/ul 07/19/2015 Cbc With Differential Ord2 Eos ABS# 0.1 K/ul 07/19/2015 Cbc With Differential Ord2 Baso ABS# 0.0 K/ul 07/19/2015 Cbc With Differential Ord2 New Analyzer Notice Please note new ref ranges s tarting 03-27-2015 due to implemntation of new five part differential hematolgy analyzer. 07/19/2015 Comp Metabolic Fdn635 NA 138 mEq/L 07/19/2015 Comp Metabolic Ari809 K 4.3 mEq/L 07/19/2015 Comp Metabolic Ley288 CL 100 mEq/L 07/19/2015 Comp Metabolic Kga437 CO2 33.0 mEq/L 07/19/2015 Comp Metabolic Oxt679 AN ION GAP 9 07/19/2015 Comp Metabolic Eft402 GL UCOSE 149 mg/dL 07/19/2015 Comp Metabolic Zvo295 Cr eat 0.9 mg/dL 07/19/2015 Comp Metabolic Ywa845 eG FR 62 ml/min/1.73m2 07/18 Comp Metabolic Kbu300 BUN 19 mg/dL 07/19/2015 Comp Metabolic Udq496 B/ C Ratio 20.2 Ratio 07/19/2015 Comp Metabolic Wvm700 CA LCIUM 9.5 mg/dL 07/19/2015 Comp Metabolic Idw152 AL K PHOS 52 U/L 07/19/2015 Comp Metabolic Mjs214 T(SGOT) 15 U/L 07/19/2015 Comp Metabolic Otr035 AL T(SGPT) 14 U/L 07/19/2015 Comp Metabolic Ccr135 BI LI T 0.5 mg/dL 07/19/2015 Comp Metabolic Zam086 AL BUMIN 4.4 g/dL 07/19/2015 Comp Metabolic Hpv806 TP RO 6.4 g/dL 07/19/2015 Comp Metabolic Rfz863 GL OB 2.0 g/dL 07/19/2015 Comp Metabolic Ech101 A/ G Ratio 2.2 Ratio 07/19/2015 Comp Metabolic Bde620 Os mo 281 mOsmo 07/19/2015 Free T4 Eaw495 FREE T4 0.92 ng/dL 07/19/2015 Tsh Ord6 hTSH II 1.95 uIU/mL 07/19/2015 Microalbumin Keo117 Micr oAlb 0.4 mg/dL 07/19/2015 Comp Metabolic Kfb800 NA 137 mEq/L 12/04/2014 Comp Metabolic Cvd499 K 4.0 mEq/L 12/04/2014 Comp Metabolic Obd204 CL 100 mEq/L 12/04/2014 Comp Metabolic Qli797 CO2 29.0 mEq/L 12/04/2014 Comp Metabolic Mvu019 AN ION GAP 12 12/04/2014 Comp Metabolic Nxb555 GL UCOSE 171 mg/dL 12/04/2014 Comp Metabolic Ala092 Cr eat 1.0 mg/dL 12/04/2014 Comp Metabolic Xex893 eG FR 60 ml/min/1.73m2 12/04 Comp Metabolic Xrl548 BUN 25 mg/dL 12/04/2014 Comp Metabolic Uwb683 B/ C Ratio 25.8 Ratio 12/04/2014 Comp Metabolic Oqp265 CA LCIUM 9.4 mg/dL 12/04/2014 Comp Metabolic Emk701 AL K PHOS 60 U/L 12/04/2014 Comp Metabolic Pyh433 T(SGOT) 13 U/L 12/04/2014 Comp Metabolic Fdc865 AL T(SGPT) 17 U/L 12/04/2014 Comp Metabolic Oyr906 BI LI T 0.4 mg/dL 12/04/2014 Comp Metabolic Obi562 AL BUMIN 4.4 g/dL 12/04/2014 Comp Metabolic Rap919 TP RO 6.9 g/dL 12/04/2014 Comp Metabolic Swu005 GL OB 2.5 g/dL 12/04/2014 Comp Metabolic Zrb378 A/ G Ratio 1.8 Ratio 12/04/2014 Comp Metabolic Uca127 Os mo 282 mOsmo 12/04/2014 Tsh Ord6 hTSH II 1.78 uIU/mL 12/04/2014 %Hba1C Nxh709 % HbA1c 88651-0 8.3 % 12/04/2014 %Hba1C Ykn141 Gluc Ave 192 mg/dL 12/04/2014 Free T4 Tfa144 FREE T4 0.85 ng/dL 12/04/2014 Lipid Ord30 [...] Result Effective Dates Constitutional No recent illness 06/18/2016 Constitutional No [...] Formatting Model/CDA Sections, Assigned to/Nery Daniels CPT-4: [id number] 11/14/2015 ADMIN INFLUENZA VIRU S VAC CPT-4: [id number] 11/14/2015 ADMIN INFLUENZA VIRU S VAC Formatting Model/CDA Sections, Assigned to/Nery Daniels CPT-4: [id number] 12/04/2014 FLU VACC 4 ANABELLE 3 YRS PLUS IM SNOMED CT: 20768105 CPT-4: 31086Qxxcjci 12/04/2014 Vital Signs Date Vital 06/18/2016 Blood Pressure 1: 122/74 Code: 8480-6 BMI: 34.8 Code: 99834-3 Heart Rate 1: 78 bpm Height: 5' SpO2: 98% Weight: 178 lbs 04/16/2016 Blood Pressure 1: 134/68 Code: 8480-6 BMI: 35.0 Code: 14306-6 Heart Rate 1: 67 bpm Height: 5' SpO2: 97% Weight: 179 lbs 03/19/2016 Blood Pressure 1: 132/74 Code: 8480-6 BMI: 34.6 Code: 26420-1 Heart Rate 1: 74 bpm Height: 5' SpO2: 97% Weight: 177 lbs 11/14/2015 Blood Pressure 1: 132/70 Code: 8480-6 BMI: 35.2 Code: 58838-3 Heart Rate 1: 68 bpm Height: 5' Weight: 180 lbs 08/14/2015 Blood Pressure 1: 122/74 Code: 8480-6 BMI: 33.8 Code: 85896-2 Heart Rate 1: 73 bpm Height: 5' SpO2: 93% Weight: 173 lbs 07/17/2015 Blood Pressure 1: 138/78 Code: 8480-6 BMI: 34.0 Code: 02069-7 Heart Rate 1: 85 bpm Height: 5' SpO2: 97% Weight: 174 lbs 03/25/2015 Blood Pressure 1: 130/78 Code: 8480-6 BMI: 33.2 Code: 40352-6 Heart Rate 1: 77 bpm Height: 5' SpO2: 97% Weight: 170 lbs 12/04/2014 Blood Pressure 1: 120/74 Code: 8480-6 BMI: 35.4 Code: 63760-0 Heart Rate 1: 67 bpm Height: 5' SpO2: 94% Weight: 181 lbs 5 oz 08/14/2014 Blood Pressure 1: 132/68 Code: 8480-6 BMI: 32.1 Code: 61758-1 Heart Rate 1: 62 bpm Height: 5'3" [...] Encounters Encounter Performer Loca tion Codes Date ([id number]) [id number] EST. P ATIENT, LEVEL III Diagnosis: Type 2 diabetes mellitus with diabetic autonomic (poly)neuropathy[ICD10: E11.43] Diagnosis: Essential (primary) hypertension[ICD10: I10] Mila Nicole MD, [facility] CPT-4: 24746 06/18/2016 ([id number]) 80181 EST. P ATIENT, LEVEL IV Diagnosis: Type 2 diabetes mellitus with hyperglycemia[ICD10: E11.65] Diagnosis: Essential (primary) hypertension[ICD10: I10] Mila Nicole MD, [facility] CPT-4: 81302 04/16/2016 ([id number]) 77654 EST. P ATIENT, LEVEL IV Diagnosis: Type 2 diabetes mellitus with hyperglycemia[ICD10: E11.65] Diagnosis: Essential (primary) hypertension[ICD10: I10] Diagnosis: Type 2 diabetes mellitus with diabetic autonomic (poly)neuropathy[ICD10: E11.43] Mila Nicole MD, [facility] CPT-4: 34193 03/19/2016 ([id number]) 13862 EST. P ATIENT, LEVEL IV Diagnosis: Type 2 diabetes mellitus with hyperglycemia[ICD10: E11.65] Diagnosis: Encounter for immunization[ICD10: Z23] Diagnosis: Essential (primary) hypertension[ICD10: I10] Mila Nicole MD, [facility] CPT-4: 21007 11/14/2015 ([id number]) 27255 EST. P ATIENT, LEVEL IV Diagnosis: Type 2 diabetes mellitus with hyperglycemia[ICD10: E11.65] Diagnosis: Essential (primary) hypertension[ICD10: I10] Diagnosis: Low back pain[ICD10: M54.5] Mila Nicole MD, [facility] CPT-4: 84717 08/14/2015 ([id number]) 79459 EST. P ATIENT, LEVEL IV Diagnosis: Type 2 diabetes mellitus with hyperglycemia[ICD10: E11.65] Diagnosis: Essential (primary) hypertension[ICD10: I10] Diagnosis: Hypothyroidism, unspecified[ICD10: E03.9] Mila Nicole MD, [facility] CPT-4: 66257 07/17/2015 ([id number]) 47005 EST. P ATIENT, LEVEL IV Diagnosis: Essential (primary) hypertension[ICD10: I10] Diagnosis: Type 2 diabetes mellitus with hyperglycemia[ICD10: E11.65] Diagnosis: Headache[ICD10: R51] Gardenia Nicole MD, [facility] CPT-4: 82349 03/25/2015 ([id number]) 59134 EST. P ATIENT, LEVEL IV Diagnosis: ESSENTIAL HYPERTENSION[ICD9: 401.9] Diagnosis: DIABETES TYPE II[ICD9: 250.00] Diagnosis: Aortic stenosis[ICD9: 424.1] Mila Nicole MD, [facility] CPT-4: 09961 12/04/2014 ([id number]) OFFICE VISI T, NEW - LEVEL 4 Diagnosis: ESSENTIAL HYPERTENSION[ICD9: 401.9] Diagnosis: Diabetes mellitus out of control[ICD9: 250.02] Mila Nicole MD, [facility] CPT-4: 29778 08/14/2014 Plan of Care Planned Activity Notes [...] at home. 06/18/2016 Appointment: Mila Nicole WPtel: [address] [place], [place] [phone] (15 min) Moderate 06/18/2016 Patient Education: Patient [...] at home. 04/16/2016 [facility] [phone] [facility] ([facility] Moderate 04/16/2016 Patient Education: [...] gabapentin 03/19/2016 [facility]ment[facility] [phone] [facility] ([facility] min) Moderate 03/19/2016 Patient [...] [address] [facility] [place] (15 min) Moderate 11/14/2015 Patient [...] [address] [facility] [place] (15 min) Moderate 07/17/2015 Patient [...] Hypertension Completed 03/25/2015 Appointment: Mila Nicole WPtel: [address] [place], [place] [phone] (15 min) Moderate 01/14/2015 Visit Plan: Diabetes [...] control. 08/14/2014 App[facility]ment: [facility] [phone] [facility] [place] ([place] New Patient 08/14/2014 [...]
--- OUTSIDE RECORDS SUMMARY | 2019-03-16 19:25 | XMS REPORT | CCD ---
Author Author Melinda Nicole Organization Mila Nicole MD, [facility] Address [address] [place] [address] Phone Care Team Providers Care Shock Absorption Floor Layer Name Role Phone PP Unavailable CCM Unavailable Summary Purpose Interface Exchange Insurance Providers Payer name Policy type / Coverage type Covered green party ID Effective Begin Date Effective End Date WPS Medicare Part B Medicare Part B [id number] Unknown Unknown AARP Medicare Part B [id number] Unknown Unknown Family history Mother Diagnosis Age At Onset Arthritis Unknown Father Diagnosis Age At Onset Hypertension Unknown Diabetes Unknown Stroke Unknown Cancer Unknown Social History Social History Element Codes Description Effective Dates Marital status Unknown M jose enrique Anna 06/18/2016 Number of children Unknown 3 08/14/[address]: 231561331 Never smoker 08/14/[address]: 734655402 Never drinks alcohol 08/14/2014 Allergies, Adverse Reactions, [...] Fill Instructions metformin 500 mg tablet RxNorm: 226555 1 Tablet(s) PO UD 1.5 in morning, noon a nd 1 at bedtime 09/08/2016 09/02/2017 Active glimepiride 4 mg tablet RxNorm: 704550 TAKE 1 TABLET BY MOUTH ONCE DAILY 07/31/2016 01/26/2017 Ac tive Generic For:*AMARYL 4MG 07/31/2016 9:02 :38 AM Victoza 2-Dariusz 0.6 mg /0.1 mL (18 mg/3 mL) subcutaneous pen injector RxNorm: 467212 1.2 Milligram(s) SQ daily 05/18/2016 09/14/2016 Active Victoza 2-Dariusz 0.6 mg /0.1 mL (18 mg/3 mL) subcutaneous pen injector RxNorm: 969000 1.2 Milligram(s) SQ daily 04/16/2016 05/17/2016 Inactive levothyroxine 50 mcg tablet RxNorm: 968582 TAKE 1 TABLET BY MOUT H ONCE DAILY 04/08/2016 12/03/2016 Ac tive Generic For:SYNTHROID 50MCG TAB 017 9:05:40 AM levothyroxine 50 mcg tablet RxNorm: 869435 1 Tablet(s) PO daily TAKE 1 TABLET BY MOUTH ONCE DAILY 04/08/2016 12/03/2016 Active Generic For:SYNTHROID 50MCG TAB N O T I C E PRESCRIPTION PREVIOUSLY AUTHORIZED BY DOCTOR:HENRY BAIG bisoprolol 5 mg-hydr ochlorothiazide 6.25 mg tablet RxNorm: 158376 1 Tablet(s) PO BID 03/23/2016 03/17/2017 Ac tive gabapentin 600 mg ta blet RxNorm: 027861 1 Capsule(s) PO TID 03/19/2016 No Stop Date Active Victoza 2-Dariusz 0.6 mg /0.1 mL (18 mg/3 mL) subcutaneous pen injector RxNorm: 160367 0.6 Milligram(s) SQ daily 03/19/2016 04/15/2016 Inactive Lexapro 5 mg tablet RxNorm: 185800 1 Tablet(s) PO QHS 03/19/2016 06/16/2016 Inactive glimepiride 4 mg tablet RxNorm: 771459 1 Tablet(s) PO daily 12/09/2015 06/05/2016 Inactive Victoza 3-Dariusz 0.6 mg /0.1 mL (18 mg/3 mL) subcutaneous pen injector RxNorm: 285412 0.6 Milligram(s) SQ daily x2 weeks, then 1.2 mg SQ daily 12/02/2015 03/18/2016 Inactive metformin 500 mg tablet RxNorm: 902888 1 Tablet(s) PO UD 1.5 in morning, noon a nd 1 at bedtime 08/14/2015 08/07/2016 Inactive gabapentin 600 mg ta blet RxNorm: 905594 1 Capsule(s) PO TID S HE IS ONLY TAKING 1 QD 08/14/2015 03/18/2016 In active fluticasone 50 mcg/a ctuation nasal spray,suspension RxNorm: 321713 Chrisney NASAL ONE SPRAY IN EACH NOSTRIL TWICE DAILY 07/26/2015 02/20/2016 Inactive fluticasone 50 mcg/a ctuation nasal spray,suspension RxNorm: 007084 Chrisney NASAL ONE SPRAY IN EACH NOSTRIL TWICE DAILY 07/26/2015 07/25/2015 Inactive bisoprolol 5 mg-hydr ochlorothiazide 6.25 mg tablet RxNorm: 992366 1 Tablet(s) PO daily 1 Tablet(s) PO BID 07/17/2015 01/12/2016 Inactive metformin 500 mg tablet RxNorm: 396354 1 Tablet(s) PO TID 1 Tablet(s) PO TID 07/17/2015 08/13/2015 In active Diflucan 100 mg tablet RxNorm: 012427 1 Tablet(s) PO daily 07/17/2015 07/21/2015 Inactive Zetia 10 mg tablet RxNorm: 132797 1 Tablet(s) PO daily 06/10/2015 06/03/2016 Inactive bisoprolol 5 mg-hydr ochlorothiazide 6.25 mg tablet RxNorm: 503582 1 Tablet(s) PO BID 04/18/2015 07/16/2015 Inactive metformin 500 mg tablet RxNorm: 793524 1 Tablet(s) PO TID 03/01/2015 06/28/2015 Inactive glimepiride 4 mg tablet RxNorm: 600893 1 Tablet(s) PO daily 01/31/2015 01/30/2015 Inactive levothyroxine 50 mcg tablet RxNorm: 688694 TAKE 1 TABLET BY MOUT H ONCE DAILY 01/31/2015 09/27/2015 In active Generic For:SYNTHROID 50MCG TAB N O T I C E PRESCRIPTION PREVIOUSLY AUTHORIZED BY DOCTOR:HENRY BAIG glimepiride 4 mg tablet RxNorm: 519040 1 Tablet(s) PO daily 01/31/2015 07/29/2015 Inactive Invokana 100 mg tablet RxNorm: 2916380 1 Tablet(s) PO daily 12/12/2014 07/16/2015 Inactive bisoprolol 5 mg-hydr ochlorothiazide 6.25 mg tablet RxNorm: 471175 1 Tablet(s) PO BID 08/27/2014 02/22/2015 Inactive metformin 500 mg tablet RxNorm: 731314 1 Tablet(s) PO TID 08/10/2014 12/07/2014 Inactive metformin 500 mg tablet RxNorm: 890905 1 Tablet(s) PO TID 08/10/2014 08/09/2014 Inactive Fish Oil 1,000 mg ca psule RxNorm: 1 Capsule(s) PO daily No Start Date Active pen needle, diabetic 31 gauge x 1/6" RxNorm: Miscellaneous N o Start Date Active bisoprolol-hydrochlo rothiazide oral RxNorm: [address] art Date 08/26/2014 Inactive levothyroxine 50 mcg tablet RxNorm: 195837 1 Tablet(s) PO daily No Start Date 01/30/2015 Inactive Invokana 100 mg tablet RxNorm: 6750343 1 Tablet(s) PO daily No Start Date 12/11/2014 Inactive Victoza 3-Dariusz 0.6 mg /0.1 mL (18 mg/3 mL) subcutaneous pen injector RxNorm: 565012 0.6 Milligram(s) SQ daily x2 weeks, then 1.2 mg SQ daily No Start Date 12/01/2015 Inactive Zetia 10 mg tablet RxNorm: 082196 1 Tablet(s) PO BID No Start Date 03/18/2016 Inactive gabapentin 300 mg ca psule RxNorm: 719471 1 Capsule(s) PO BID No Start Date [...] 09/08/2016 Metabolic Ord15 CALCIUM 9.0 mg/dL 09/08/2016 Tsh Ord6 hTSH II 2.64 uIU/mL 03/13/2016 %Hba1C Vev020 % HbA1c 82387-5 8.2 % 03/13/2016 %Hba1C Tzv686 Gluc Ave 189 mg/dL 03/13/2016 Lipid Ord30 CHOL 233 mg/dL 03/13/2016 Lipid Ord30 HDL 46.0 mg/dl 03/13/2016 Lipid Ord30 TRIG 276 mg/dL 03/13/2016 Lipid Ord30 LDL 132 mg/dL 03/13/2016 Lipid Ord30 C/HDL 5.1 Ratio 03/13/2016 Free T4 Hth737 FREE T4 0.94 ng/dL 03/13/2016 Cbc With [...] 30.3 pg 03/13/2016 Cbc With Differential Ord2 Hayes% 6.1 % 03/13/2016 Cbc With Differential Ord2 [...] 1.63 K/ul 03/13/2016 Cbc With Differential Ord2 Hayes ABS# 0.3 K/ul 03/13/2016 Cbc With Differential Ord2 Eos ABS# 0.1 K/ul 03/13/2016 Cbc With Differential Ord2 Baso ABS# 0.0 K/ul 03/13/2016 Comp Metabolic Fwj215 NA 139 mEq/L 03/13/2016 Comp Metabolic Gsd734 K 4.3 mEq/L 03/13/2016 Comp Metabolic Xlz397 CL 103 mEq/L 03/13/2016 Comp Metabolic Cwv067 CO2 28.0 mEq/L 03/13/2016 Comp Metabolic Iky677 AN ION GAP 12 03/13/2016 Comp Metabolic Pqr651 GL UCOSE 200 mg/dL 03/13/2016 Comp Metabolic Cnk596 Cr eat 0.9 mg/dL 03/13/2016 Comp Metabolic Evd398 eG FR 69 ml/min/1.73m2 03/13 Comp Metabolic Kbl428 BUN 19 mg/dL 03/13/2016 Comp Metabolic Xdz184 B/ C Ratio 22.4 Ratio 03/13/2016 Comp Metabolic Fca955 CA LCIUM 9.0 mg/dL 03/13/2016 Comp Metabolic Lfz695 AL K PHOS 57 U/L 03/13/2016 Comp Metabolic Wea672 T(SGOT) 13 U/L 03/13/2016 Comp Metabolic Qgi472 AL T(SGPT) 16 U/L 03/13/2016 Comp Metabolic Bxk681 BI LI T 0.4 mg/dL 03/13/2016 Comp Metabolic Jnv257 AL BUMIN 4.2 g/dL 03/13/2016 Comp Metabolic Wzj324 TP RO 6.3 g/dL 03/13/2016 Comp Metabolic Vtx345 GL OB 2.1 g/dL 03/13/2016 Comp Metabolic Jpe729 A/ G Ratio 2.0 Ratio 03/13/2016 Comp Metabolic Jge146 Os mo 285 mOsmo 03/13/2016 %Hba1C Cvf335 % HbA1c 58109-3 8.3 % 11/14/2015 %Hba1C Ury669 Gluc Ave 192 mg/dL 11/14/2015 Lipid Ord30 CHOL 210 mg/dL 07/19/2015 Lipid Ord30 HDL 43.0 mg/dl 07/19/2015 Lipid Ord30 TRIG 311 mg/dL 07/19/2015 Lipid Ord30 LDL 105 mg/dL 07/19/2015 Lipid Ord30 C/HDL 4.9 Ratio 07/19/2015 %Hba1C Jyn051 % HbA1c 88188-5 7.6 % 07/19/2015 %Hba1C Vcs082 Gluc Ave 171 mg/dL 07/19/2015 Cbc With [...] 28.8 pg 07/19/2015 Cbc With Differential Ord2 Hayes% 6.1 % 07/19/2015 Cbc With Differential Ord2 [...] 1.63 K/ul 07/19/2015 Cbc With Differential Ord2 Hayes ABS# 0.3 K/ul 07/19/2015 Cbc With Differential Ord2 Eos ABS# 0.1 K/ul 07/19/2015 Cbc With Differential Ord2 Baso ABS# 0.0 K/ul 07/19/2015 Cbc With Differential Ord2 New Analyzer Notice Please note new ref ranges s tarting 03-27-2015 due to implemntation of new five part differential hematolgy analyzer. 07/19/2015 Comp Metabolic Xgt357 NA 138 mEq/L 07/19/2015 Comp Metabolic Dsk992 K 4.3 mEq/L 07/19/2015 Comp Metabolic Tkd066 CL 100 mEq/L 07/19/2015 Comp Metabolic Agi087 CO2 33.0 mEq/L 07/19/2015 Comp Metabolic Ugz560 AN ION GAP 9 07/19/2015 Comp Metabolic Axa549 GL UCOSE 149 mg/dL 07/19/2015 Comp Metabolic Ssa577 Cr eat 0.9 mg/dL 07/19/2015 Comp Metabolic Yle625 eG FR 62 ml/min/1.73m2 07/18 Comp Metabolic Sbt705 BUN 19 mg/dL 07/19/2015 Comp Metabolic Vuj142 B/ C Ratio 20.2 Ratio 07/19/2015 Comp Metabolic Buz361 CA LCIUM 9.5 mg/dL 07/19/2015 Comp Metabolic Vhj937 AL K PHOS 52 U/L 07/19/2015 Comp Metabolic Ang911 T(SGOT) 15 U/L 07/19/2015 Comp Metabolic Qis425 AL T(SGPT) 14 U/L 07/19/2015 Comp Metabolic Aue541 BI LI T 0.5 mg/dL 07/19/2015 Comp Metabolic Fnb943 AL BUMIN 4.4 g/dL 07/19/2015 Comp Metabolic Llo894 TP RO 6.4 g/dL 07/19/2015 Comp Metabolic Zje440 GL OB 2.0 g/dL 07/19/2015 Comp Metabolic Kvm968 A/ G Ratio 2.2 Ratio 07/19/2015 Comp Metabolic Ogs942 Os mo 281 mOsmo 07/19/2015 Free T4 Sre048 FREE T4 0.92 ng/dL 07/19/2015 Tsh Ord6 hTSH II 1.95 uIU/mL 07/19/2015 Microalbumin Yiy448 Micr oAlb 0.4 mg/dL 07/19/2015 Comp Metabolic Lfz740 NA 137 mEq/L 12/04/2014 Comp Metabolic Cbx132 K 4.0 mEq/L 12/04/2014 Comp Metabolic Rog482 CL 100 mEq/L 12/04/2014 Comp Metabolic Vkf489 CO2 29.0 mEq/L 12/04/2014 Comp Metabolic Syy517 AN ION GAP 12 12/04/2014 Comp Metabolic Acr507 GL UCOSE 171 mg/dL 12/04/2014 Comp Metabolic Nsi400 Cr eat 1.0 mg/dL 12/04/2014 Comp Metabolic Pfu582 eG FR 60 ml/min/1.73m2 12/04 Comp Metabolic Ebf650 BUN 25 mg/dL 12/04/2014 Comp Metabolic Duw992 B/ C Ratio 25.8 Ratio 12/04/2014 Comp Metabolic Iwd308 CA LCIUM 9.4 mg/dL 12/04/2014 Comp Metabolic Qum959 AL K PHOS 60 U/L 12/04/2014 Comp Metabolic Xyb011 T(SGOT) 13 U/L 12/04/2014 Comp Metabolic Xcf830 AL T(SGPT) 17 U/L 12/04/2014 Comp Metabolic Gga249 BI LI T 0.4 mg/dL 12/04/2014 Comp Metabolic Ezc702 AL BUMIN 4.4 g/dL 12/04/2014 Comp Metabolic Fzb438 TP RO 6.9 g/dL 12/04/2014 Comp Metabolic Aqf145 GL OB 2.5 g/dL 12/04/2014 Comp Metabolic Bdo533 A/ G Ratio 1.8 Ratio 12/04/2014 Comp Metabolic Ubg168 Os mo 282 mOsmo 12/04/2014 Tsh Ord6 hTSH II 1.78 uIU/mL 12/04/2014 %Hba1C Dyb878 % HbA1c 71122-8 8.3 % 12/04/2014 %Hba1C Ytj227 Gluc Ave 192 mg/dL 12/04/2014 Free T4 Smz421 FREE T4 0.85 ng/dL 12/04/2014 Lipid Ord30 [...] 04/16/2016 None Full Exam - General 1995 Eyes conjunctiva/eyelids Overall: cornea clear 04/16/2016 None [...] Formatting Model/CDA Sections, Assigned to/Nery Daniels CPT-4: 97233Azxeubu 11/14/2015 ADMIN INFLUENZA VIRU S VAC CPT-4: J1594Fujetun 11/14/2015 ADMIN INFLUENZA VIRU S VAC Formatting Model/CDA Sections, Assigned to/Nery Daniels CPT-4: W7388Rhlenvf 12/04/2014 FLU VACC 4 ANABELLE 3 YRS PLUS IM SNOMED CT: 45252688 CPT-4: 29864Atnidxz 12/04/2014 Vital Signs Date Vital 06/18/2016 Blood Pressure 1: 122/74 Code: 8480-6 BMI: 34.8 Code: 57377-1 Heart Rate 1: 78 bpm Height: 5' SpO2: 98% Weight: 178 lbs 04/16/2016 Blood Pressure 1: 134/68 Code: 8480-6 BMI: 35.0 Code: 35521-7 Heart Rate 1: 67 bpm Height: 5' SpO2: 97% Weight: 179 lbs 03/19/2016 Blood Pressure 1: 132/74 Code: 8480-6 BMI: 34.6 Code: 80469-0 Heart Rate 1: 74 bpm Height: 5' SpO2: 97% Weight: 177 lbs 11/14/2015 Blood Pressure 1: 132/70 Code: 8480-6 BMI: 35.2 Code: 10949-8 Heart Rate 1: 68 bpm Height: 5' Weight: 180 lbs 08/14/2015 Blood Pressure 1: 122/74 Code: 8480-6 BMI: 33.8 Code: 10785-2 Heart Rate 1: 73 bpm Height: 5' SpO2: 93% Weight: 173 lbs 07/17/2015 Blood Pressure 1: 138/78 Code: 8480-6 BMI: 34.0 Code: 99174-7 Heart Rate 1: 85 bpm Height: 5' SpO2: 97% Weight: 174 lbs 03/25/2015 Blood Pressure 1: 130/78 Code: 8480-6 BMI: 33.2 Code: 41044-6 Heart Rate 1: 77 bpm Height: 5' SpO2: 97% Weight: 170 lbs 12/04/2014 Blood Pressure 1: 120/74 Code: 8480-6 BMI: 35.4 Code: 76550-3 Heart Rate 1: 67 bpm Height: 5' SpO2: 94% Weight: 181 lbs 5 oz 08/14/2014 Blood Pressure 1: 132/68 Code: 8480-6 BMI: 32.1 Code: 27597-3 Heart Rate 1: 62 bpm Height: 5'3" [...] Encounters Encounter Performer Loca tion Codes Date ([id number]) [id number] EST. 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 P ATIENT, LEVEL IV Diagnosis: Type 2 diabetes mellitus with hyperglycemia[ICD10: E11.65] Diagnosis: Essential (primary) hypertension[ICD10: I10] Mila Nicole MD, [facility] C CPT-4: 63835 04/16/2016 ([id number]) 31046 EST. 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 P ATIENT, LEVEL IV Diagnosis: Type 2 diabetes mellitus with hyperglycemia[ICD10: E11.65] Diagnosis: Encounter for immunization[ICD10: Z23] Diagnosis: Essential (primary) hypertension[ICD10: I10] Mila Nicole MD, C CPT-4: 90636 11/14/2015 ([id number]) 61302 EST. P ATIENT, LEVEL IV Diagnosis: Type 2 diabetes mellitus with hyperglycemia[ICD10: E11.65] Diagnosis: Essential (primary) hypertension[ICD10: I10] Diagnosis: Low back pain[ICD10: M54.5] Mila Nicole MD, [facility] CPT-4: 18126 08/14/2015 ([id number]) 39741 EST. P ATIENT, LEVEL IV Diagnosis: Type 2 diabetes mellitus with hyperglycemia[ICD10: E11.65] Diagnosis: Essential (primary) hypertension[ICD10: I10] Diagnosis: Hypothyroidism, unspecified[ICD10: E03.9] Mila Nicole MD, [facility] CPT-4: 01162 07/17/2015 ([id number]) 21785 EST. P ATIENT, LEVEL IV Diagnosis: Essential (primary) hypertension[ICD10: I10] Diagnosis: Type 2 diabetes mellitus with hyperglycemia[ICD10: E11.65] Diagnosis: Headache[ICD10: R51] Gardenia Nicole MD, [facility] CPT-4: 91525 03/25/2015 ([id number]) 47945 EST. P ATIENT, LEVEL IV Diagnosis: ESSENTIAL HYPERTENSION[ICD9: 401.9] Diagnosis: DIABETES TYPE II[ICD9: 250.00] Diagnosis: Aortic stenosis[ICD9: 424.1] Mila Nicole MD, [facility] CPT-4: 61260 12/04/2014 ([id number]) OFFICE VISI T, [facility] - LEVEL 4 Diagnosis: ESSENTIAL HYPERTENSION[ICD9: 401.9] Diagnosis: Diabetes mellitus out of control[ICD9: 250.02] Mila Nicole MD, LL C CPT-4: 03175 08/14/2014 Plan of Care Planned Activity Notes [...] home. 06/18/2016 [phone] [id number] ([facility] min) Moderate 06/18/2016 Patient Education: [...] home. 04/16/2016 [phone] [id number] (15 min) Moderate 04/16/2016 Patient Education: [...] gabapentin 03/19/2016 [facility]: [phone] [id number] (15 min) Moderate 03/19/2016 Patient Education: [...] home. 11/14/2015 [facility]ment: [facility] [phone] [id number] [place] (15 min) Moderate 11/14/2015 Patient Education: [...] check Hgba1c 07/17/2015 Appointment: Mila Nicole WPtel: [address] [place], [place] [phone] (15 min) Moderate 07/17/2015 Patient Education: Patient [...] Hypertension Completed 03/25/2015 Appointment: Mila Nicole WPtel: [address] [place], [place] [phone] (15 min) Moderate 01/14/2015 Visit Plan: Diabetes [...] control. 12/04/2014 Appointment: Mila Nicole WPtel: [phone] [facility] (15 min) Moderate 12/04/2014 Patient Education: [...] control. 08/14/2014 [facility]ment: [facility] [phone] [phone] [place] ([place] New Patient 08/14/2014 Patient [...]
--- OUTSIDE RECORDS SUMMARY | 2019-03-16 19:26 | XMS REPORT | CCD ---
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 Name Role Phone PP Unavailable CCM Unavailable Summary Purpose Interface Exchange Insurance Providers Payer name Policy type / Coverage type Covered green party ID Effective Begin Date Effective End Date WPS Medicare Part B Medicare Part B [id number] Unknown Unknown AARP Medicare Part B [id number] Unknown Unknown Family history Mother Diagnosis Age At Onset Arthritis Unknown Father Diagnosis Age At Onset Hypertension Unknown Diabetes Unknown Stroke Unknown Cancer Unknown Social History Social History Element Codes Description Effective Dates Marital status Unknown M jose enrique Anna 06/18/2016 Number of children Unknown 3 08/14/[address]: 447771950 Never smoker 08/14/[address]: 106372932 Never drinks alcohol 08/14/2014 Allergies, Adverse Reactions, [...] Date Stop Date Sta tus Fill Instructions glimepiride 4 mg tablet RxNorm: 215970 TAKE 1 TABLET BY MOUTH ONCE DAILY 07/31/2016 01/26/2017 Ac tive Generic For:*AMARYL 4MG 07/31/2016 9:02 :38 AM Victoza 2-Dariusz 0.6 mg /0.1 mL (18 mg/3 mL) subcutaneous pen injector RxNorm: 589186 1.2 Milligram(s) SQ daily 05/18/2016 09/14/2016 Active Victoza 2-Dariusz 0.6 mg /0.1 mL (18 mg/3 mL) subcutaneous pen injector RxNorm: 741667 1.2 Milligram(s) SQ daily 04/16/2016 05/17/2016 Inactive levothyroxine 50 mcg tablet RxNorm: 927285 TAKE 1 TABLET BY MOUT H ONCE DAILY 04/08/2016 12/03/2016 Ac tive Generic For:SYNTHROID 50MCG TAB 017 9:05:40 AM levothyroxine 50 mcg tablet RxNorm: 983406 1 Tablet(s) PO daily TAKE 1 TABLET BY MOUTH ONCE DAILY 04/08/2016 12/03/2016 Active Generic For:SYNTHROID 50MCG TAB N O T I C E PRESCRIPTION PREVIOUSLY AUTHORIZED BY DOCTOR:HENRY BAIG bisoprolol 5 mg-hydr ochlorothiazide 6.25 mg tablet RxNorm: 795308 1 Tablet(s) PO BID 03/23/2016 03/17/2017 Ac tive gabapentin 600 mg ta blet RxNorm: 193260 1 Capsule(s) PO TID 03/19/2016 No Stop Date Active Victoza 2-Dariusz 0.6 mg /0.1 mL (18 mg/3 mL) subcutaneous pen injector RxNorm: 492581 0.6 Milligram(s) SQ daily 03/19/2016 04/15/2016 Inactive Lexapro 5 mg tablet RxNorm: 208060 1 Tablet(s) PO QHS 03/19/2016 06/16/2016 Inactive glimepiride 4 mg tablet RxNorm: 684858 1 Tablet(s) PO daily 12/09/2015 06/05/2016 Inactive Victoza 3-Dariusz 0.6 mg /0.1 mL (18 mg/3 mL) subcutaneous pen injector RxNorm: 073418 0.6 Milligram(s) SQ daily x2 weeks, then 1.2 mg SQ daily 12/02/2015 03/18/2016 Inactive metformin 500 mg tablet RxNorm: 642340 1 Tablet(s) PO UD 1.5 in morning, noon a nd 1 at bedtime 08/14/2015 08/07/2016 Inactive gabapentin 600 mg ta blet RxNorm: 125677 1 Capsule(s) PO TID S HE IS ONLY TAKING 1 QD 08/14/2015 03/18/2016 In active fluticasone 50 mcg/a ctuation nasal spray,suspension RxNorm: 149092 Pablo NASAL ONE SPRAY IN EACH NOSTRIL TWICE DAILY 07/26/2015 02/20/2016 Inactive fluticasone 50 mcg/a ctuation nasal spray,suspension RxNorm: 386535 Pablo NASAL ONE SPRAY IN EACH NOSTRIL TWICE DAILY 07/26/2015 07/25/2015 Inactive bisoprolol 5 mg-hydr ochlorothiazide 6.25 mg tablet RxNorm: 545170 1 Tablet(s) PO daily 1 Tablet(s) PO BID 07/17/2015 01/12/2016 Inactive metformin 500 mg tablet RxNorm: 418228 1 Tablet(s) PO TID 1 Tablet(s) PO TID 07/17/2015 08/13/2015 In active Diflucan 100 mg tablet RxNorm: 047939 1 Tablet(s) PO daily 07/17/2015 07/21/2015 Inactive Zetia 10 mg tablet RxNorm: 932522 1 Tablet(s) PO daily 06/10/2015 06/03/2016 Inactive bisoprolol 5 mg-hydr ochlorothiazide 6.25 mg tablet RxNorm: 784879 1 Tablet(s) PO BID 04/18/2015 07/16/2015 Inactive metformin 500 mg tablet RxNorm: 516991 1 Tablet(s) PO TID 03/01/2015 06/28/2015 Inactive glimepiride 4 mg tablet RxNorm: 502985 1 Tablet(s) PO daily 01/31/2015 01/30/2015 Inactive levothyroxine 50 mcg tablet RxNorm: 573007 TAKE 1 TABLET BY MOUT H ONCE DAILY 01/31/2015 09/27/2015 In active Generic For:SYNTHROID 50MCG TAB N O T I C E PRESCRIPTION PREVIOUSLY AUTHORIZED BY DOCTOR:HENRY BAIG glimepiride 4 mg tablet RxNorm: 131855 1 Tablet(s) PO daily 01/31/2015 07/29/2015 Inactive Invokana 100 mg tablet RxNorm: 9076897 1 Tablet(s) PO daily 12/12/2014 07/16/2015 Inactive bisoprolol 5 mg-hydr ochlorothiazide 6.25 mg tablet RxNorm: 876592 1 Tablet(s) PO BID 08/27/2014 02/22/2015 Inactive metformin 500 mg tablet RxNorm: 758332 1 Tablet(s) PO TID 08/10/2014 12/07/2014 Inactive metformin 500 mg tablet RxNorm: 343391 1 Tablet(s) PO TID 08/10/2014 08/09/2014 Inactive Fish Oil 1,000 mg ca psule RxNorm: 1 Capsule(s) PO daily No Start Date Active pen needle, diabetic 31 gauge x 03/20" RxNorm: Miscellaneous N o Start Date Active bisoprolol-hydrochlo rothiazide oral RxNorm: [address] art Date 08/26/2014 Inactive levothyroxine 50 mcg tablet RxNorm: 510250 1 Tablet(s) PO daily No Start Date 01/30/2015 Inactive Invokana 100 mg tablet RxNorm: 8301543 1 Tablet(s) PO daily No Start Date 12/11/2014 Inactive Victoza 3-Dariusz 0.6 mg /0.1 mL (18 mg/3 mL) subcutaneous pen injector RxNorm: 223007 0.6 Milligram(s) SQ daily x2 weeks, then 1.2 mg SQ daily No Start Date 12/01/2015 Inactive Zetia 10 mg tablet RxNorm: 895696 1 Tablet(s) PO BID No Start Date 03/18/2016 Inactive gabapentin 300 mg ca psule RxNorm: 060859 1 Capsule(s) PO BID No Start Date [...] 09/08/2016 Metabolic Ord15 CALCIUM 9.0 mg/dL 09/08/2016 Lipid Ord30 CHOL 233 mg/dL 03/13/2016 Lipid Ord30 HDL 46.0 mg/dl 03/13/2016 Lipid Ord30 TRIG 276 mg/dL 03/13/2016 Lipid Ord30 LDL 132 mg/dL 03/13/2016 Lipid Ord30 C/HDL 5.1 Ratio 03/13/2016 Cbc With Differential Ord2 WBC 5.53 [...] 30.3 pg 03/13/2016 Cbc With Differential Ord2 Union% 6.1 % 03/13/2016 Cbc With Differential Ord2 [...] 1.63 K/ul 03/13/2016 Cbc With Differential Ord2 Union ABS# 0.3 K/ul 03/13/2016 Cbc With Differential Ord2 Eos ABS# 0.1 K/ul 03/13/2016 Cbc With Differential Ord2 Baso ABS# 0.0 K/ul 03/13/2016 Free T4 Unu919 FREE T4 0.94 ng/dL 03/13/2016 %Hba1C Kdm416 % HbA1c 01717-1 8.2 % 03/13/2016 %Hba1C Nrt567 Gluc Ave 189 mg/dL 03/13/2016 Comp Metabolic Dnp943 NA 139 mEq/L 03/13/2016 Comp Metabolic Hru182 K 4.3 mEq/L 03/13/2016 Comp Metabolic Vwr709 CL 103 mEq/L 03/13/2016 Comp Metabolic Fxx892 CO2 28.0 mEq/L 03/13/2016 Comp Metabolic Byi465 AN ION GAP 12 03/13/2016 Comp Metabolic Hcj419 GL UCOSE 200 mg/dL 03/13/2016 Comp Metabolic Sqa007 Cr eat 0.9 mg/dL 03/13/2016 Comp Metabolic Lik808 eG FR 69 ml/min/1.73m2 03/13 Comp Metabolic Yem068 BUN 19 mg/dL 03/13/2016 Comp Metabolic Eyt173 B/ C Ratio 22.4 Ratio 03/13/2016 Comp Metabolic Bkt385 CA LCIUM 9.0 mg/dL 03/13/2016 Comp Metabolic Fjk800 AL K PHOS 57 U/L 03/13/2016 Comp Metabolic Cxz485 T(SGOT) 13 U/L 03/13/2016 Comp Metabolic Idd003 AL T(SGPT) 16 U/L 03/13/2016 Comp Metabolic Eqk014 BI LI T 0.4 mg/dL 03/13/2016 Comp Metabolic Vow008 AL BUMIN 4.2 g/dL 03/13/2016 Comp Metabolic Wyo208 TP RO 6.3 g/dL 03/13/2016 Comp Metabolic Mmg940 GL OB 2.1 g/dL 03/13/2016 Comp Metabolic Sfp354 A/ G Ratio 2.0 Ratio 03/13/2016 Comp Metabolic Cxs876 Os mo 285 mOsmo 03/13/2016 Tsh Ord6 hTSH II 2.64 uIU/mL 03/13/2016 %Hba1C Bcu125 % HbA1c 96410-7 8.3 % 11/14/2015 %Hba1C Hop791 Gluc Ave 192 mg/dL 11/14/2015 Lipid Ord30 CHOL 210 mg/dL 07/19/2015 Lipid Ord30 HDL 43.0 mg/dl 07/19/2015 Lipid Ord30 TRIG 311 mg/dL 07/19/2015 Lipid Ord30 LDL 105 mg/dL 07/19/2015 Lipid Ord30 C/HDL 4.9 Ratio 07/19/2015 %Hba1C Yti838 % HbA1c 41450-4 7.6 % 07/19/2015 %Hba1C Wjs563 Gluc Ave 171 mg/dL 07/19/2015 Free T4 Loq506 FREE T4 0.92 ng/dL 07/19/2015 Tsh Ord6 hTSH II 1.95 uIU/mL 07/19/2015 Comp Metabolic Svj595 NA 138 mEq/L 07/19/2015 Comp Metabolic Rwi715 K 4.3 mEq/L 07/19/2015 Comp Metabolic Dnw279 CL 100 mEq/L 07/19/2015 Comp Metabolic Ynn205 CO2 33.0 mEq/L 07/19/2015 Comp Metabolic Sly857 AN ION GAP 9 07/19/2015 Comp Metabolic Iyr225 GL UCOSE 149 mg/dL 07/19/2015 Comp Metabolic Ipd019 Cr eat 0.9 mg/dL 07/19/2015 Comp Metabolic Boy073 eG FR 62 ml/min/1.73m2 07/18 Comp Metabolic Nob691 BUN 19 mg/dL 07/19/2015 Comp Metabolic Qoc482 B/ C Ratio 20.2 Ratio 07/19/2015 Comp Metabolic Anp654 CA LCIUM 9.5 mg/dL 07/19/2015 Comp Metabolic Gru673 AL K PHOS 52 U/L 07/19/2015 Comp Metabolic Ium710 T(SGOT) 15 U/L 07/19/2015 Comp Metabolic Oud521 AL T(SGPT) 14 U/L 07/19/2015 Comp Metabolic Smb743 BI LI T 0.5 mg/dL 07/19/2015 Comp Metabolic Gnu316 AL BUMIN 4.4 g/dL 07/19/2015 Comp Metabolic Lnc154 TP RO 6.4 g/dL 07/19/2015 Comp Metabolic Oqw146 GL OB 2.0 g/dL 07/19/2015 Comp Metabolic Hbi615 A/ G Ratio 2.2 Ratio 07/19/2015 Comp Metabolic Ptb868 Os mo 281 mOsmo 07/19/2015 Cbc With Differential Ord2 WBC 5.38 [...] 28.8 pg 07/19/2015 Cbc With Differential Ord2 Union% 6.1 % 07/19/2015 Cbc With Differential Ord2 [...] 1.63 K/ul 07/19/2015 Cbc With Differential Ord2 Union ABS# 0.3 K/ul 07/19/2015 Cbc With Differential Ord2 Eos ABS# 0.1 K/ul 07/19/2015 Cbc With Differential Ord2 Baso ABS# 0.0 K/ul 07/19/2015 Cbc With Differential Ord2 New Analyzer Notice Please note new ref ranges s tarting 03-27-2015 due to implemntation of new five part differential hematolgy analyzer. 07/19/2015 Microalbumin Ejr234 Micr oAlb 0.4 mg/dL 07/19/2015 Free T4 Xbi069 FREE T4 0.85 ng/dL 12/04/2014 Lipid Ord30 [...] With Differential Ord2 RDW 13.8 % 12/04/2014 %Hba1C Azy501 % HbA1c 07925-9 8.3 % 12/04/2014 %Hba1C Yvn538 Gluc Ave 192 mg/dL 12/04/2014 Tsh Ord6 hTSH II 1.78 uIU/mL 12/04/2014 Comp Metabolic Xib648 NA 137 mEq/L 12/04/2014 Comp Metabolic Nrq158 K 4.0 mEq/L 12/04/2014 Comp Metabolic Its528 CL 100 mEq/L 12/04/2014 Comp Metabolic Hzx780 CO2 29.0 mEq/L 12/04/2014 Comp Metabolic Qdd326 AN ION GAP 12 12/04/2014 Comp Metabolic Tei692 GL UCOSE 171 mg/dL 12/04/2014 Comp Metabolic Lov027 Cr eat 1.0 mg/dL 12/04/2014 Comp Metabolic Acc890 eG FR 60 ml/min/1.73m2 12/04 Comp Metabolic Uhx922 BUN 25 mg/dL 12/04/2014 Comp Metabolic Hhk116 B/ C Ratio 25.8 Ratio 12/04/2014 Comp Metabolic Rsh011 CA LCIUM 9.4 mg/dL 12/04/2014 Comp Metabolic Jje386 AL K PHOS 60 U/L 12/04/2014 Comp Metabolic Uff792 T(SGOT) 13 U/L 12/04/2014 Comp Metabolic Hyn707 AL T(SGPT) 17 U/L 12/04/2014 Comp Metabolic Sia256 BI LI T 0.4 mg/dL 12/04/2014 Comp Metabolic Paz476 AL BUMIN 4.4 g/dL 12/04/2014 Comp Metabolic Blz325 TP RO 6.9 g/dL 12/04/2014 Comp Metabolic Ylb612 GL OB 2.5 g/dL 12/04/2014 Comp Metabolic Jad082 A/ G Ratio 1.8 Ratio 12/04/2014 Comp Metabolic Pcl704 Os mo 282 mOsmo 12/04/2014 Review of Systems System Result Effective [...] Formatting Model/CDA Sections, Assigned to/Nery Daniels CPT-4: 97136Xxtvvck 11/14/2015 ADMIN INFLUENZA VIRU S VAC CPT-4: R3907Eyaiali 11/14/2015 ADMIN INFLUENZA VIRU S VAC Formatting Model/CDA Sections, Assigned to/Nery Daniels CPT-4: X8532Yvkkaex 12/04/2014 FLU VACC 4 ANABELLE 3 YRS PLUS IM SNOMED CT: 32674075 CPT-4: 37482Fbijuzf 12/04/2014 Vital Signs Date Vital 06/18/2016 Blood Pressure 1: 122/74 Code: 8480-6 BMI: 34.8 Code: 04323-5 Heart Rate 1: 78 bpm Height: 5' SpO2: 98% Weight: 178 lbs 04/16/2016 Blood Pressure 1: 134/68 Code: 8480-6 BMI: 35.0 Code: 23617-9 Heart Rate 1: 67 bpm Height: 5' SpO2: 97% Weight: 179 lbs 03/19/2016 Blood Pressure 1: 132/74 Code: 8480-6 BMI: 34.6 Code: 89242-4 Heart Rate 1: 74 bpm Height: 5' SpO2: 97% Weight: 177 lbs 11/14/2015 Blood Pressure 1: 132/70 Code: 8480-6 BMI: 35.2 Code: 27957-1 Heart Rate 1: 68 bpm Height: 5' Weight: 180 lbs 08/14/2015 Blood Pressure 1: 122/74 Code: 8480-6 BMI: 33.8 Code: 40368-3 Heart Rate 1: 73 bpm Height: 5' SpO2: 93% Weight: 173 lbs 07/17/2015 Blood Pressure 1: 138/78 Code: 8480-6 BMI: 34.0 Code: 93488-9 Heart Rate 1: 85 bpm Height: 5' SpO2: 97% Weight: 174 lbs 03/25/2015 Blood Pressure 1: 130/78 Code: 8480-6 BMI: 33.2 Code: 63869-3 Heart Rate 1: 77 bpm Height: 5' SpO2: 97% Weight: 170 lbs 12/04/2014 Blood Pressure 1: 120/74 Code: 8480-6 BMI: 35.4 Code: 90599-7 Heart Rate 1: 67 bpm Height: 5' SpO2: 94% Weight: 181 lbs 5 oz 08/14/2014 Blood Pressure 1: 132/68 Code: 8480-6 BMI: 32.1 Code: 61538-2 Heart Rate 1: 62 bpm Height: 5'3" [...] Encounters Encounter Performer Loca tion Codes Date ([id number]) 01029 EST. 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 P ATIENT, LEVEL IV Diagnosis: Type 2 diabetes mellitus with hyperglycemia[ICD10: E11.65] Diagnosis: Essential (primary) hypertension[ICD10: I10] BALDEMAR Green MD C CPT-4: 60870 04/16/2016 [id number]) 89083 EST. 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 P ATIENT, LEVEL IV Diagnosis: Type 2 diabetes mellitus with hyperglycemia[ICD10: E11.65] Diagnosis: Encounter for immunization[ICD10: Z23] Diagnosis: Essential (primary) hypertension[ICD10: I10] Mila Nicole MD, C CPT-4: 96978 11/14/2015 ([id number]) 68661 EST. P ATIENT, LEVEL IV Diagnosis: Type 2 diabetes mellitus with hyperglycemia[ICD10: E11.65] Diagnosis: Essential (primary) hypertension[ICD10: I10] Diagnosis: Low back pain[ICD10: M54.5] Mila Nicole MD, [facility] CPT-4: 22416 08/14/2015 ([id number]) 03866 EST. P ATIENT, LEVEL IV Diagnosis: Type 2 diabetes mellitus with hyperglycemia[ICD10: E11.65] Diagnosis: Essential (primary) hypertension[ICD10: I10] Diagnosis: Hypothyroidism, unspecified[ICD10: E03.9] Mila Nicole MD, C CPT-4: 28592 07/17/2015 ([id number]) 40169 EST. P ATIENT, LEVEL IV Diagnosis: Essential (primary) hypertension[ICD10: I10] Diagnosis: Type 2 diabetes mellitus with hyperglycemia[ICD10: E11.65] Diagnosis: Headache[ICD10: R51] Gardenia Nicole MD, [facility] CPT-4: 92267 03/25/2015 ([id number]) 59133 EST. P ATIENT, LEVEL IV Diagnosis: ESSENTIAL HYPERTENSION[ICD9: 401.9] Diagnosis: DIABETES TYPE II[ICD9: 250.00] Diagnosis: Aortic stenosis[ICD9: 424.1] Mila Nicole MD, [facility] CPT-4: 38248 12/04/2014 ([id number]) OFFICE VISI T, NEW - LEVEL 4 Diagnosis: ESSENTIAL HYPERTENSION[ICD9: 401.9] Diagnosis: Diabetes mellitus out of control[ICD9: 250.02] Mila Nicole MD, C CPT-4: 00159 08/14/2014 Plan of Care Planned Activity Notes [...] home. 06/18/2016 [phone] [facility] ([facility]) Moderate 06/18/2016 Patient [...] home. 04/16/2016 [phone] ([facility] min) Moderate 04/16/2016 Patient [...] gabapentin 03/19/2016 Appointment: Mila Nicole WPtel: [phone] [facility] (15 min) Moderate 03/19/2016 Patient Education: [...] home. 11/14/2015 Appointment: Mila Nicole WPtel: [phone] [facility] (15 min) Moderate 11/14/2015 Patient Education: [...] check Hgba1c 07/17/2015 Appointment: [facility] Nicole [facility] ([facility] min[facility] Moderate 07/17/2015 Patient [...] Hypertension Completed 03/25/2015 Appointment: [facility] Nicole [facility] ([facility] min) Moderate 01/14/2015 Visit [...] on previous levels of control. 12/04/2014 [phone] [facility] ([facility] min) Moderate 12/04/2014 Patient [...] control. 08/14/2014 App[facility]ment: [facility] [phone] [facility] [place] New Patient 08/14/2014 [...]
--- OUTSIDE RECORDS SUMMARY | 2019-03-16 19:27 | XMS REPORT | CCD ---
Author Author Melinda Nicole Organization Mila Nicole MD, [facility] Address [address] [place] [address] Phone Care Team Providers Care [employer]ove [employer] Cutter Name Role Phone PP Unavailable CCM Unavailable Summary Purpose Interface Exchange Insurance Providers Payer name Policy type / Coverage type Covered constitution party ID Effective Begin Date Effective End Date WPS Medicare Part B Medicare Part B [id number] Unknown AARP Medicare Part B [id number] Unknown Family history Mother Diagnosis Age At [...] Unknown 3 08/14/[address]: 465981137 Never smoker 08/14/[address]: 538737194 Never drinks alcohol 08/14/2014 Allergies, Adverse Reactions, Alerts Substance Reaction Codes Entered Date Inactivated Date Status * OTHER REACTION - S EE ANSWER BOX Invokana, Victoza Unknown 03/19/2017 No Inactive Date Active Paxil has blurred vision RxNorm: 373324 08/14/2014 No Inactive Date Active Lipitor RxNorm: 47214 08/14/2014 No Inactive Date Active Past Medical [...] Date Stop Date Sta tus Fill Instructions Nino Escamilla U-1 00 Insulin 100 unit/mL (3 mL) subcutaneous RxNorm: 8818503 INJECT 20 UNITS UNDER THE SKIN ONCE DAILY 05/25/2018 11/20/2018 Active digoxin 250 mcg tablet RxNorm: 714386 0.25 MG PO DAILY 05/13/2018 No Stop Date Active Flagyl 500 mg tablet RxNorm: 658951 1 Tablet(s) PO TID 05/05/2018 05/14/2018 Inactive Flagyl 500 mg tablet RxNorm: 662590 1 Tablet(s) PO TID 05/05/2018 05/04/2018 Inactive Zetia 10 mg tablet RxNorm: 817905 1 Tablet(s) PO daily 03/28/2018 03/22/2019 Active tramadol 50 mg tablet RxNorm: 212298 1 Tablet(s) PO TID as needed 03/25/2018 No Stop Date Active fluticasone 50 mcg/a ctuation nasal spray,suspension RxNorm: 6485725 INSTILL ONE SPRAY IN EACH NOSTRILTWICE A DAY 03/16/2018 10/11/2018 Active Generic For:FLONASE SPR 0.05% 03/16/2018 8:50:59 AM Keflex 500 mg capsule RxNorm: 810041 1 Capsule(s) PO TID 02/11/2018 02/10/2018 Inactive Keflex 500 mg capsule RxNorm: 081556 1 Capsule(s) PO TID 02/11/2018 02/20/2018 Inactive metoprolol succinate ER 200 mg tablet,extended release 24 hr RxNorm: 616198 1 Tablet(s) PO daily 01/27/2018 No Stop Date Active Eliquis 2.5 mg tablet RxNorm: 4416588 1 Tablet(s) PO BID 01/27/2018 No Stop Date Active digoxin 125 mcg tablet RxNorm: 938339 1 Tablet(s) PO daily 01/27/2018 No Stop Date Active Basaglar KwikPen U-1 00 Insulin 100 unit/mL (3 mL) subcutaneous RxNorm: 4166295 20 Unit(s) SQ daily 11/25/2017 05/23/2018 Inactive UPDATE RX metformin 500 mg tablet RxNorm: 873095 1 Tablet(s) PO UD 1.5 in morning, noon a nd 1 at bedtime 10/28/2017 10/22/2018 Active Basaglar KwikPen U-1 00 Insulin 100 unit/mL (3 mL) subcutaneous RxNorm: 2264699 18 Unit(s) SQ daily 10/26/2017 11/24/2017 Inactive UPDATE RX levothyroxine 50 mcg tablet RxNorm: 327766 TAKE 1 TABLET BY MOUT H ONCE DAILY 10/15/2017 06/11/2018 Ac tive Generic For:SYNTHROID 50MCG TAB 018 9:59:00 AM escitalopram 10 mg t ablet RxNorm: 648711 1 Tablet(s) PO QPM 09/22/2017 09/16/2018 Active Generic For:LEXAPRO 5MG 01/07/2017 9:05 :43 AM Basaglar KwikPen U-1 00 Insulin 100 unit/mL (3 mL) subcutaneous RxNorm: 5577913 15 Unit(s) SQ daily 09/22/2017 10/25/2017 Inactive potassium chloride E R 20 mEq tablet,extended release RxNorm: 046628 1 Tablet(s) PO daily 06/22/2017 01/17/2018 Inactive Lantus Solostar U-10 0 Insulin 100 unit/mL (3 mL) subcutaneous pen RxNorm: 218580 10 Unit(s) SQ daily 06/08/2017 06/08/2017 Inactive Basaglar KwikPen U-1 00 Insulin 100 unit/mL (3 mL) subcutaneous RxNorm: 5391811 10 Unit(s) SQ daily 06/08/2017 06/07/2017 Inactive Basaglar KwikPen U-1 00 Insulin 100 unit/mL (3 mL) subcutaneous RxNorm: 4536511 10 Unit(s) SQ daily 06/08/2017 09/21/2017 Inactive Lexapro 5 mg tablet RxNorm: 975836 1 Tablet(s) PO daily 06/01/2017 11/27/2017 Inactive Lexapro 5 mg tablet RxNorm: 406742 1 Tablet(s) PO daily 05/12/2017 05/31/2017 Inactive bisoprolol 5 mg-hydr ochlorothiazide 6.25 mg tablet RxNorm: 248193 1 Tablet(s) PO BID 05/04/2017 06/02/2017 Inactive Keflex 500 mg capsule RxNorm: 756147 1 Capsule(s) PO QID 04/15/2017 04/21/2017 Inactive Lantus Solostar 100 unit/mL (3 mL) subcutaneous insulin pen RxNorm: 765861 10 Unit(s) SQ daily 02/03/2017 06/07/2017 Inactive levothyroxine 50 mcg tablet RxNorm: 898440 TAKE 1 TABLET BY MOUT H ONCE DAILY 02/01/2017 09/28/2017 In active Generic For:SYNTHROID 50MCG TAB 017 9:20:59 AM gabapentin 600 mg ta blet RxNorm: 201033 1 Capsule(s) PO TID 01/27/2017 01/21/2018 Inactive Lexapro 5 mg tablet RxNorm: 713047 TAKE 1 TABLET BY MOUTH AT BEDTIME 01/07/2017 09/21/2017 In active Generic For:LEXAPRO 5MG 01/07/2017 9:05 :43 AM Victoza 2-Dariusz 0.6 mg /0.1 mL (18 mg/3 mL) subcutaneous pen injector RxNorm: 918572 1.8 Milligram(s) SQ daily 12/17/2016 02/07/2017 Inactive Victoza 3-Dariusz 0.6 mg /0.1 mL (18 mg/3 mL) subcutaneous pen injector RxNorm: 293672 Milligram(s) SQ 12/17/2016 02/07/2017 Inactive Zetia 10 mg tablet RxNorm: 810618 1 Tablet(s) PO daily 11/17/2016 11/11/2017 Inactive fluticasone 50 mcg/a ctuation nasal spray,suspension RxNorm: 3599782 [place] NASAL ONE SPRAY IN EACH NOSTRIL TWICE DAILY 09/28/2016 04/25/2017 Inactive Victoza 2-Dariusz 0.6 mg /0.1 mL (18 mg/3 mL) subcutaneous pen injector RxNorm: 571520 1.2 Milligram(s) SQ daily 09/14/2016 12/16/2016 Inactive Lexapro 5 mg tablet RxNorm: 270923 1 Tablet(s) PO QHS 09/14/2016 12/12/2016 Inactive metformin 500 mg tablet RxNorm: 353118 1 Tablet(s) PO UD 1.5 in morning, noon a nd 1 at bedtime 09/08/2016 09/02/2017 Inactive glimepiride 4 mg tablet RxNorm: 757119 TAKE 1 TABLET BY MOUTH ONCE DAILY 07/31/2016 09/13/2016 In active Generic For:*AMARYL 4MG 07/31/2016 9:02 :38 AM Victoza 2-Dariusz 0.6 mg /0.1 mL (18 mg/3 mL) subcutaneous pen injector RxNorm: 503214 1.2 Milligram(s) SQ daily 05/18/2016 09/13/2016 Inactive Victoza 2-Dariusz 0.6 mg /0.1 mL (18 mg/3 mL) subcutaneous pen injector RxNorm: 933376 1.2 Milligram(s) SQ daily 04/16/2016 05/17/2016 Inactive levothyroxine 50 mcg tablet RxNorm: 747993 TAKE 1 TABLET BY MOUT H ONCE DAILY 04/08/2016 12/03/2016 In active Generic For:SYNTHROID 50MCG TAB 017 9:05:40 AM levothyroxine 50 mcg tablet RxNorm: 914597 1 Tablet(s) PO daily TAKE 1 TABLET BY MOUTH ONCE DAILY 04/08/2016 12/03/2016 Inactive Generic For:SYNTHROID 50MCG TAB N O T I C E PRESCRIPTION PREVIOUSLY AUTHORIZED BY DOCTOR:HENRY BAIG bisoprolol 5 mg-hydr ochlorothiazide 6.25 mg tablet RxNorm: 570571 1 Tablet(s) PO BID 03/23/2016 03/17/2017 Inactive Victoza 2-Dariusz 0.6 mg /0.1 mL (18 mg/3 mL) subcutaneous pen injector RxNorm: 259715 0.6 Milligram(s) SQ daily 03/19/2016 04/15/2016 Inactive Lexapro 5 mg tablet RxNorm: 768941 1 Tablet(s) PO QHS 03/19/2016 06/16/2016 Inactive gabapentin 600 mg ta blet RxNorm: 805595 1 Capsule(s) PO TID 03/19/2016 01/26/2017 Inactive glimepiride 4 mg tablet RxNorm: 167845 1 Tablet(s) PO daily 12/09/2015 06/05/2016 Inactive Victoza 3-Dariusz 0.6 mg /0.1 mL (18 mg/3 mL) subcutaneous pen injector RxNorm: 482996 0.6 Milligram(s) SQ daily x2 weeks, then 1.2 mg SQ daily 12/02/2015 03/18/2016 Inactive metformin 500 mg tablet RxNorm: 533592 1 Tablet(s) PO UD 1.5 in morning, noon a nd 1 at bedtime 08/14/2015 08/07/2016 Inactive gabapentin 600 mg ta blet RxNorm: 479346 1 Capsule(s) PO TID S HE IS ONLY TAKING 1 QD 08/14/2015 03/18/2016 In active fluticasone 50 mcg/a ctuation nasal spray,suspension RxNorm: 445316 [place] NASAL ONE SPRAY IN EACH NOSTRIL TWICE DAILY 07/26/2015 07/25/2015 Inactive fluticasone 50 mcg/a ctuation nasal spray,suspension RxNorm: 1403425 [place] NASAL ONE SPRAY IN EACH NOSTRIL TWICE DAILY 07/26/2015 02/20/2016 Inactive bisoprolol 5 mg-hydr ochlorothiazide 6.25 mg tablet RxNorm: 617550 1 Tablet(s) PO daily 1 Tablet(s) PO BID 07/17/2015 01/12/2016 Inactive metformin 500 mg tablet RxNorm: 013237 1 Tablet(s) PO TID 1 Tablet(s) PO TID 07/17/2015 08/13/2015 In active Diflucan 100 mg tablet RxNorm: 894871 1 Tablet(s) PO daily 07/17/2015 07/21/2015 Inactive Zetia 10 mg tablet RxNorm: 925667 1 Tablet(s) PO daily 06/10/2015 06/03/2016 Inactive bisoprolol 5 mg-hydr ochlorothiazide 6.25 mg tablet RxNorm: 392709 1 Tablet(s) PO BID 04/18/2015 07/16/2015 Inactive metformin 500 mg tablet RxNorm: 092289 1 Tablet(s) PO TID 03/01/2015 06/28/2015 Inactive glimepiride 4 mg tablet RxNorm: 093341 1 Tablet(s) PO daily 01/31/2015 01/30/2015 Inactive levothyroxine 50 mcg tablet RxNorm: 581939 TAKE 1 TABLET BY MOUT H ONCE DAILY 01/31/2015 09/27/2015 In active Generic For:SYNTHROID 50MCG TAB N O T I C E PRESCRIPTION PREVIOUSLY AUTHORIZED BY DOCTOR:HENRY BAIG glimepiride 4 mg tablet RxNorm: 339408 1 Tablet(s) PO daily 01/31/2015 07/29/2015 Inactive Invokana 100 mg tablet RxNorm: 7324894 1 Tablet(s) PO daily 12/12/2014 07/16/2015 Inactive bisoprolol 5 mg-hydr ochlorothiazide 6.25 mg tablet RxNorm: 704583 1 Tablet(s) PO BID 08/27/2014 02/22/2015 Inactive metformin 500 mg tablet RxNorm: 246540 1 Tablet(s) PO TID 08/10/2014 12/07/2014 Inactive metformin 500 mg tablet RxNorm: 097325 1 Tablet(s) PO TID 08/10/2014 08/09/2014 Inactive Fish Oil 1,000 mg ca psule RxNorm: 1 Capsule(s) PO daily No Start Date Active Protonix 40 mg table t,delayed release RxNorm: 322454 1 Tablet(s) PO QAM No Start Date Active furosemide 40 mg tablet RxNorm: 720582 1 Tablet(s) PO daily No Start Date Active pen needle, diabetic 31 gauge x 1/6" RxNorm: Miscellaneous N o Start Date Active Elavil 25 mg tablet RxNorm: 568591 1 Tablet(s) PO QPM No Start Date Active nitroglycerin 0.4 mg sublingual tablet RxNorm: 772388 1 Tablet(s) SL as nee ded chest pain No Start Date Active amlodipine 5 mg tablet RxNorm: 672851 1 Tablet(s) PO daily No Start Date Active Entresto 24 mg-26 mg tablet RxNorm: 1462438 1 Tablet(s) PO BID No Start Date Active aspirin 81 mg chewab le tablet RxNorm: 182319 1 Tablet(s) PO daily No Start Date 06/02/2017 Inactive Eliquis 5 mg tablet RxNorm: 2201405 1 Tablet(s) PO BID No Start Date 01/26/2018 Inactive bisoprolol-hydrochlo rothiazide oral RxNorm: [address] art Date 08/26/2014 Inactive levothyroxine 50 mcg tablet RxNorm: 201341 1 Tablet(s) PO daily No Start Date 01/30/2015 Inactive potassium chloride E R 20 mEq tablet,extended release RxNorm: 118330 1 Tablet(s) PO daily No Start Date 06/21/2017 Inactive digoxin 250 mcg tablet RxNorm: 896582 1 Tablet(s) PO daily No Start Date 01/26/2018 Inactive Invokana 100 mg tablet RxNorm: 0686682 1 Tablet(s) PO daily No Start Date 12/11/2014 Inactive tramadol 50 mg tablet RxNorm: 239206 1 Tablet(s) PO TID as needed No Start Date 03/22/2018 Inactive Victoza 3-Dariusz 0.6 mg /0.1 mL (18 mg/3 mL) subcutaneous pen injector RxNorm: 884531 0.6 Milligram(s) SQ daily x2 weeks, then 1.2 mg SQ daily No Start Date 12/01/2015 Inactive Effient 10 mg tablet RxNorm: 361145 1 Tablet(s) PO QAM No Start Date 01/26/2018 Inactive Zetia 10 mg tablet RxNorm: 248427 1 Tablet(s) PO BID No Start Date 03/18/2016 Inactive metoprolol succinate ER 100 mg tablet,extended release 24 hr RxNorm: 443480 1 Tablet(s) PO daily No Start Date 01/26/2018 Inactive gabapentin 300 mg ca psule RxNorm: 693805 1 Capsule(s) PO BID No Start Date 08/13/2015 Inactive Lasix 40 mg tablet RxNorm: 411190 1 Tablet(s) PO BID No Start Date 04/14/2017 Inactive Coreg 3.125 mg tablet RxNorm: 799547 1 Tablet(s) PO BID with meals No [...] 04/15/2017 stress test and then shipped to [facility] Follow Up 03/19/2017 stress test and then shipped to [facility] diabetes mellitus 02/03/2017 headache 01/07/2017 diabetes mellitus 12/17/2016 diabetes mellitus 09/14/2016 diabetes mellitus 06/18/2016 medication follow up 04/16/2016 back pain 03/19/2016 back pain 11/14/2015 back pain 08/14/2015 diabetes mellitus 07/17/2015 Hospital Follow Up 03/25/2015 diabetes mellitus 12/04/2014 diabetes mellitus 08/14/2014 Results Observation Observation Code Item Item Code Result Date Human Epididymis Protein 4 483152 HE4 97.4 PMOL/L 06/06/2018 Cancer Antigen (CA) 125 155076 CANCER ANTIGEN (CA) 125 13.0 U/ML 06/06/2018 Culture Urine [id number] URI NE CULTURE SEE NOTES 02/28/2018 Urine [...] 28.8 pg 02/24/2018 Cbc With Differential Ord2 [place]% 5.7 % 02/24/2018 Cbc With Differential Ord2 [...] 1.57 K/ul 02/24/2018 Cbc With Differential Ord2 [place] ABS# 0.4 K/ul 02/24/2018 Cbc With Differential Ord2 Eos ABS# 0.1 K/ul 02/24/2018 Cbc With Differential Ord2 Baso ABS# 0.0 K/ul 02/24/2018 Comp Metabolic Zex314 NA 138 mEq/L 02/24/2018 Comp Metabolic Scx011 K 4.4 mEq/L 02/24/2018 Comp Metabolic Zup711 CL 100 mEq/L 02/24/2018 Comp Metabolic Tkl040 CO2 27.0 mEq/L 02/24/2018 Comp Metabolic Tch019 AN ION GAP 15 02/24/2018 Comp Metabolic Iod064 GL UCOSE 98 mg/dL 02/24/2018 Comp Metabolic Ncs486 Cr eat 1.0 mg/dL 02/24/2018 Comp Metabolic Cxd195 eG FR 55 ml/min/1.73m2 02/24 Comp Metabolic Wdr590 BUN 25 mg/dL 02/24/2018 Comp Metabolic Prf291 B/ C Ratio 24.3 Ratio 02/24/2018 Comp Metabolic Xtc391 CA LCIUM 9.4 mg/dL 02/24/2018 Comp Metabolic Uwk723 AL K PHOS 46 U/L 02/24/2018 Comp Metabolic Rxs243 T(SGOT) 13 U/L 02/24/2018 Comp Metabolic Kax102 AL T(SGPT) 12 U/L 02/24/2018 Comp Metabolic Eeu243 BI LI T 0.4 mg/dL 02/24/2018 Comp Metabolic Uxg282 AL BUMIN 4.5 g/dL 02/24/2018 Comp Metabolic Wxu616 TP RO 6.6 g/dL 02/24/2018 Comp Metabolic Awj673 GL OB 2.1 g/dL 02/24/2018 Comp Metabolic Uay135 A/ G Ratio 2.1 Ratio 02/24/2018 Comp Metabolic Zdy015 Os mo 280 mOsmo 02/24/2018 Culture Urine [id number] URI NE CULTURE SEE NOTES 02/11/2018 Culture Urine [id number] Con tinued Results 02/11/2018 Urine Culture Ucult Comp lete >100,000 col/ml aerobic grow th sent to ref lab 02/08/2018 %Hba1C Zqq496 % HbA1c 77839-8 6.8 % 01/12/2018 %Hba1C Wdh312 Gluc Ave 148 mg/dL 01/12/2018 Metabolic Ord15 [...] 28.6 pg 01/11/2018 Cbc With Differential Ord2 [place]% 7.8 % 01/11/2018 Cbc With Differential Ord2 [...] 1.70 K/ul 01/11/2018 Cbc With Differential Ord2 [place] ABS# 0.4 K/ul 01/11/2018 Cbc With Differential Ord2 Eos ABS# 0.1 K/ul 01/11/2018 Cbc With Differential Ord2 Baso ABS# 0.0 K/ul 01/11/2018 Magnesium Ord90 Mag 1.7 mg/dL 01/11/2018 Test(s) Not Perfromed [id number] Test(s) Not Performed Test(s) Not Performed. See Below: 09/20/2017 Test(s) Not Perfromed [id number] TEST NAME BNP 09/20/2017 Test(s) Not Perfromed [id number] Rejection Reason Patient Refused due to lack of coving diganosis 09/20/2017 Test(s) Not Perfromed [id number] COMMENT Dorita Notified 11/2017 Test(s) Not Perfromed [id number] Client Care Consultant Miguel Mclaughlin 09/20/2017 B Type Natriuretic Peptide Hcd7548 B-GROOVER RUNNER 889.00 pg/ml 8 Cbc With Differential Ord2 [...] 28.9 pg 09/20/2017 Cbc With Differential Ord2 [place]% 5.6 % 09/20/2017 Cbc With Differential Ord2 [...] 1.68 K/ul 09/20/2017 Cbc With Differential Ord2 [place] ABS# 0.3 K/ul 09/20/2017 Cbc With Differential Ord2 Eos ABS# 0.1 K/ul 09/20/2017 Cbc With Differential Ord2 Baso ABS# 0.0 K/ul 09/20/2017 %Hba1C Udd226 % HbA1c 66708-9 7.9 % 09/20/2017 %Hba1C Bdx343 Gluc Ave 180 mg/dL 09/20/2017 Magnesium Ord90 [...] 28.3 pg 07/07/2017 Cbc With Differential Ord2 [place]% 7.9 % 07/07/2017 Cbc With Differential Ord2 [...] 1.34 K/ul 07/07/2017 Cbc With Differential Ord2 [place] ABS# 0.4 K/ul 07/07/2017 Cbc With Differential Ord2 Eos ABS# 0.1 K/ul 07/07/2017 Cbc With Differential Ord2 Baso ABS# 0.0 K/ul 07/07/2017 Comp Metabolic Tei908 NA 142 mEq/L 07/07/2017 Comp Metabolic Mtj043 K 4.3 mEq/L 07/07/2017 Comp Metabolic Lcu267 CL 105 mEq/L 07/07/2017 Comp Metabolic Tdw276 CO2 28.0 mEq/L 07/07/2017 Comp Metabolic Ero836 AN ION GAP 13 07/07/2017 Comp Metabolic Zdt546 GL UCOSE 197 mg/dL 07/07/2017 Comp Metabolic Wva423 Cr eat 1.1 mg/dL 07/07/2017 Comp Metabolic Ewj199 eG FR 51 ml/min/1.73m2 07/07 Comp Metabolic Sar644 BUN 21 mg/dL 07/07/2017 Comp Metabolic Nmj438 B/ C Ratio 18.9 Ratio 07/07/2017 Comp Metabolic Aud597 CA LCIUM 8.9 mg/dL 07/07/2017 Comp Metabolic Jmt547 AL K PHOS 51 U/L 07/07/2017 Comp Metabolic Vce132 T(SGOT) 11 U/L 07/07/2017 Comp Metabolic Cka622 AL T(SGPT) 11 U/L 07/07/2017 Comp Metabolic Chv157 BI LI T 0.3 mg/dL 07/07/2017 Comp Metabolic Sjb546 AL BUMIN 4.2 g/dL 07/07/2017 Comp Metabolic Mqf013 TP RO 6.0 g/dL 07/07/2017 Comp Metabolic Bdk374 GL OB 1.8 g/dL 07/07/2017 Comp Metabolic Vig498 A/ G Ratio 2.3 Ratio 07/07/2017 Comp Metabolic Idf717 Os mo 292 mOsmo 07/07/2017 Digoxin Ord9 DIGOXIN 1.3 NG/ML 07/07/2017 Tsh Ord6 TSH (3rd IS) 2.19 uIU/mL 07/07/2017 B Type Natriuretic Peptide Upi0197 B-GROOVER RUNNER 801.00 pg/ml 8 Culture Urine [id number] URI NE CULTURE SEE NOTES 04/19/2017 Culture Urine [id number] Con tinued Results 04/19/2017 Urine Culture Ucult Comp lete >100,000 col/ml aerobic grow th sent to ref lab 04/16/2017 Comp Metabolic Mls373 NA 140 mEq/L 01/26/2017 Comp Metabolic Wxl937 K 4.6 mEq/L 01/26/2017 Comp Metabolic Ipg963 CL 102 mEq/L 01/26/2017 Comp Metabolic Cut841 CO2 28.0 mEq/L 01/26/2017 Comp Metabolic Svm208 AN ION GAP 15 01/26/2017 Comp Metabolic Sfe912 GL UCOSE 173 mg/dL 01/26/2017 Comp Metabolic Rtn982 Cr eat 1.0 mg/dL 01/26/2017 Comp Metabolic Jiw349 eG FR 56 ml/min/1.73m2 01/26 Comp Metabolic Qnr530 BUN 23 mg/dL 01/26/2017 Comp Metabolic Lhg568 B/ C Ratio 22.5 Ratio 01/26/2017 Comp Metabolic Oyb273 CA LCIUM 9.4 mg/dL 01/26/2017 Comp Metabolic Bnz234 AL K PHOS 52 U/L 01/26/2017 Comp Metabolic Ffn454 T(SGOT) 12 U/L 01/26/2017 Comp Metabolic Dwi345 AL T(SGPT) 12 U/L 01/26/2017 Comp Metabolic Dms402 BI LI T 0.5 mg/dL 01/26/2017 Comp Metabolic Afx196 AL BUMIN 4.4 g/dL 01/26/2017 Comp Metabolic Cpg329 TP RO 6.5 g/dL 01/26/2017 Comp Metabolic Eqa378 GL OB 2.1 g/dL 01/26/2017 Comp Metabolic Rma302 A/ G Ratio 2.1 Ratio 01/26/2017 Comp Metabolic Ddw435 Os mo 287 mOsmo 01/26/2017 Cbc With [...] 29.2 pg 01/26/2017 Cbc With Differential Ord2 [place]% 4.9 % 01/26/2017 Cbc With Differential Ord2 [...] 1.75 K/ul 01/26/2017 Cbc With Differential Ord2 [place] ABS# 0.4 K/ul 01/26/2017 Cbc With Differential Ord2 Eos ABS# 0.1 K/ul 01/26/2017 Cbc With Differential Ord2 Baso ABS# 0.0 K/ul 01/26/2017 %Hba1C Cfo739 % HbA1c 65718-8 7.8 % 01/26/2017 %Hba1C Apo355 Gluc Ave 177 mg/dL 01/26/2017 Lipid Ord30 CHOL 239 mg/dL 01/26/2017 Lipid Ord30 HDL 40.0 mg/dl 01/26/2017 Lipid Ord30 TRIG 325 mg/dL 01/26/2017 Lipid Ord30 LDL 134 mg/dL 01/26/2017 Lipid Ord30 C/HDL 6.0 Ratio 01/26/2017 Free T4 Xds320 FREE T4 0.95 ng/dL 01/26/2017 Tsh Ord6 [...] Metabolic Ord15 CALCIUM 9.0 mg/dL 09/08/2016 %Hba1C Nld853 % HbA1c 76322-1 7.5 % 09/08/2016 %Hba1C Zby039 Gluc Ave 169 mg/dL 09/08/2016 Tsh Ord6 hTSH II 2.64 uIU/mL 03/13/2016 %Hba1C Lov715 % HbA1c 50420-6 8.2 % 03/13/2016 %Hba1C Sbp685 Gluc Ave 189 mg/dL 03/13/2016 Lipid Ord30 CHOL 233 mg/dL 03/13/2016 Lipid Ord30 HDL 46.0 mg/dl 03/13/2016 Lipid Ord30 TRIG 276 mg/dL 03/13/2016 Lipid Ord30 LDL 132 mg/dL 03/13/2016 Lipid Ord30 C/HDL 5.1 Ratio 03/13/2016 Free T4 Ivm524 FREE T4 0.94 ng/dL 03/13/2016 Cbc With [...] 30.3 pg 03/13/2016 Cbc With Differential Ord2 [place]% 6.1 % 03/13/2016 Cbc With Differential Ord2 [...] 1.63 K/ul 03/13/2016 Cbc With Differential Ord2 [place] ABS# 0.3 K/ul 03/13/2016 Cbc With Differential Ord2 Eos ABS# 0.1 K/ul 03/13/2016 Cbc With Differential Ord2 Baso ABS# 0.0 K/ul 03/13/2016 Comp Metabolic Rhs909 NA 139 mEq/L 03/13/2016 Comp Metabolic Nny352 K 4.3 mEq/L 03/13/2016 Comp Metabolic Uqf224 CL 103 mEq/L 03/13/2016 Comp Metabolic Ppo026 CO2 28.0 mEq/L 03/13/2016 Comp Metabolic Dfq086 AN ION GAP 12 03/13/2016 Comp Metabolic Fvc935 GL UCOSE 200 mg/dL 03/13/2016 Comp Metabolic Nay117 Cr eat 0.9 mg/dL 03/13/2016 Comp Metabolic Cjd838 eG FR 69 ml/min/1.73m2 03/13 Comp Metabolic Gcz680 BUN 19 mg/dL 03/13/2016 Comp Metabolic Ncb716 B/ C Ratio 22.4 Ratio 03/13/2016 Comp Metabolic Knz638 CA LCIUM 9.0 mg/dL 03/13/2016 Comp Metabolic Ltx661 AL K PHOS 57 U/L 03/13/2016 Comp Metabolic Jso719 T(SGOT) 13 U/L 03/13/2016 Comp Metabolic Kxr744 AL T(SGPT) 16 U/L 03/13/2016 Comp Metabolic Bme253 BI LI T 0.4 mg/dL 03/13/2016 Comp Metabolic Odj239 AL BUMIN 4.2 g/dL 03/13/2016 Comp Metabolic Uqq720 TP RO 6.3 g/dL 03/13/2016 Comp Metabolic Fdb302 GL OB 2.1 g/dL 03/13/2016 Comp Metabolic Yvq122 A/ G Ratio 2.0 Ratio 03/13/2016 Comp Metabolic Crd999 Os mo 285 mOsmo 03/13/2016 %Hba1C Uap426 % HbA1c 51929-9 8.3 % 11/14/2015 %Hba1C Txl682 Gluc Ave 192 mg/dL 11/14/2015 Lipid Ord30 CHOL 210 mg/dL 07/19/2015 Lipid Ord30 HDL 43.0 mg/dl 07/19/2015 Lipid Ord30 TRIG 311 mg/dL 07/19/2015 Lipid Ord30 LDL 105 mg/dL 07/19/2015 Lipid Ord30 C/HDL 4.9 Ratio 07/19/2015 %Hba1C Vtk982 % HbA1c 45540-2 7.6 % 07/19/2015 %Hba1C Tbq204 Gluc Ave 171 mg/dL 07/19/2015 Cbc With [...] 28.8 pg 07/19/2015 Cbc With Differential Ord2 [place]% 6.1 % 07/19/2015 Cbc With Differential Ord2 [...] 1.63 K/ul 07/19/2015 Cbc With Differential Ord2 [place] ABS# 0.3 K/ul 07/19/2015 Cbc With Differential Ord2 Eos ABS# 0.1 K/ul 07/19/2015 Cbc With Differential Ord2 Baso ABS# 0.0 K/ul 07/19/2015 Cbc With Differential Ord2 New Analyzer Notice Please note new ref ranges s tarting 03-27-2015 due to implemntation of new five part differential hematolgy analyzer. 07/19/2015 Comp Metabolic Gtw097 NA 138 mEq/L 07/19/2015 Comp Metabolic Zxq299 K 4.3 mEq/L 07/19/2015 Comp Metabolic Ilm724 CL 100 mEq/L 07/19/2015 Comp Metabolic Egz042 CO2 33.0 mEq/L 07/19/2015 Comp Metabolic Bff571 AN ION GAP 9 07/19/2015 Comp Metabolic Fhv609 GL UCOSE 149 mg/dL 07/19/2015 Comp Metabolic Zrf836 Cr eat 0.9 mg/dL 07/19/2015 Comp Metabolic Kxk825 eG FR 62 ml/min/1.73m2 07/18 Comp Metabolic Mvv102 BUN 19 mg/dL 07/19/2015 Comp Metabolic Npb957 B/ C Ratio 20.2 Ratio 07/19/2015 Comp Metabolic Cok970 CA LCIUM 9.5 mg/dL 07/19/2015 Comp Metabolic Jvo773 AL K PHOS 52 U/L 07/19/2015 Comp Metabolic Jbz793 T(SGOT) 15 U/L 07/19/2015 Comp Metabolic Ykn201 AL T(SGPT) 14 U/L 07/19/2015 Comp Metabolic Vfy186 BI LI T 0.5 mg/dL 07/19/2015 Comp Metabolic Ubl221 AL BUMIN 4.4 g/dL 07/19/2015 Comp Metabolic Pxx847 TP RO 6.4 g/dL 07/19/2015 Comp Metabolic Hcj219 GL OB 2.0 g/dL 07/19/2015 Comp Metabolic Fps639 A/ G Ratio 2.2 Ratio 07/19/2015 Comp Metabolic Oqm759 Os mo 281 mOsmo 07/19/2015 Free T4 Cmn336 FREE T4 0.92 ng/dL 07/19/2015 Tsh Ord6 hTSH II 1.95 uIU/mL 07/19/2015 Microalbumin Rbb909 Micr oAlb 0.4 mg/dL 07/19/2015 Comp Metabolic Lbb569 NA 137 mEq/L 12/04/2014 Comp Metabolic Jnv636 K 4.0 mEq/L 12/04/2014 Comp Metabolic Rie645 CL 100 mEq/L 12/04/2014 Comp Metabolic Xka242 CO2 29.0 mEq/L 12/04/2014 Comp Metabolic Yeo040 AN ION GAP 12 12/04/2014 Comp Metabolic Cdn814 GL UCOSE 171 mg/dL 12/04/2014 Comp Metabolic Tyv092 Cr eat 1.0 mg/dL 12/04/2014 Comp Metabolic Gnc523 eG FR 60 ml/min/1.73m2 12/04 Comp Metabolic Zps906 BUN 25 mg/dL 12/04/2014 Comp Metabolic Mlr851 B/ C Ratio 25.8 Ratio 12/04/2014 Comp Metabolic Tlk964 CA LCIUM 9.4 mg/dL 12/04/2014 Comp Metabolic Wsy074 AL K PHOS 60 U/L 12/04/2014 Comp Metabolic Oyj310 T(SGOT) 13 U/L 12/04/2014 Comp Metabolic Eom553 AL T(SGPT) 17 U/L 12/04/2014 Comp Metabolic Fkh674 BI LI T 0.4 mg/dL 12/04/2014 Comp Metabolic Eiw403 AL BUMIN 4.4 g/dL 12/04/2014 Comp Metabolic Fnk792 TP RO 6.9 g/dL 12/04/2014 Comp Metabolic Hqp679 GL OB 2.5 g/dL 12/04/2014 Comp Metabolic Ehv152 A/ G Ratio 1.8 Ratio 12/04/2014 Comp Metabolic Xqy091 Os mo 282 mOsmo 12/04/2014 Tsh Ord6 hTSH II 1.78 uIU/mL 12/04/2014 %Hba1C Ozy079 % HbA1c 56088-4 8.3 % 12/04/2014 %Hba1C Gph794 Gluc Ave 192 mg/dL 12/04/2014 Free T4 Vkh158 FREE T4 0.85 ng/dL 12/04/2014 Lipid Ord30 [...] 12/17/2016 Musculoskeletal No myalgias 12/17/2016 Psychiatric anxiety 10/0 07/2016 Psychiatric depression 1 Constitutional No recent [...] Date URINALYSIS NONAUTO W /O SCOPE CPT-4: 36576 04/28/2018 URINALYSIS NONAUTO W /O SCOPE CPT-4: 65010 02/24/2018 URINALYSIS NONAUTO W /O SCOPE CPT-4: 40446 02/07/2018 ADMIN INFLUENZA VIRU S VAC CPT-4: G0008 11/25/2017 FLU VAC NO PRSV 4 VA L 3 YRS+ CPT-4: 89078 11/25/2017 GLUC MONITOR CONT PH YS I&R CPT-4: 31178 10/26/2017 GLUCOSE MONITORING CONT CPT-4: 62968 10/11/2017 URINALYSIS NONAUTO W /O SCOPE CPT-4: 06966 04/15/2017 FLU VAC NO PRSV 4 VA L 3 YRS+ CPT-4: 91215 12/17/2016 ADMIN INFLUENZA VIRU S VAC CPT-4: G0008 12/17/2016 FLU VACC PRSV FREE I NC ANTIG Formatting Model/CDA Sections, Assigned to/Nery Daniels CPT-4: 62903Mfklrvb 11/14/2015 ADMIN INFLUENZA VIRU S VAC CPT-4: G0008 11/14/2015 ADMIN INFLUENZA VIRU S VAC Formatting Model/CDA Sections, Assigned to/Nery Daniels CPT-4: [id number] 12/04/2014 FLU VACC 4 ANABELLE 3 YRS PLUS IM SNOMED CT: [id number] CPT-4: 13242 12/04/2014 Vital Signs Date Vital 04/27/2018 Blood Pressure 1: 118/44 Code: 8480-6 BMI: 28.3 Code: 49955-6 Heart Rate 1: 77 bpm Height: 5' SpO2: 99% Weight: 145 lbs 03/28/2018 Blood Pressure 1: 140/74 Code: 8480-6 BMI: 28.1 Code: 28150-9 Heart Rate 1: 87 bpm Height: 5' SpO2: 99% Weight: 144 lbs 02/24/2018 Blood Pressure 1: 130/62 Code: 8480-6 BMI: 28.9 Code: 40387-2 Heart Rate 1: 57 bpm Height: 5' SpO2: 99% Weight: 148 lbs 01/27/2018 Blood Pressure 1: 142/70 Code: 8480-6 BMI: 29.5 Code: 92105-0 Heart Rate 1: 61 bpm Height: 5' SpO2: 99% Weight: 151 lbs 11/25/2017 Blood Pressure 1: 148/72 Code: 8480-6 BMI: 30.9 Code: 68638-7 Heart Rate 1: 62 bpm Height: 5' SpO2: 98% Weight: 158 lbs 10/26/2017 Blood Pressure 1: 156/74 Code: 8480-6 BMI: 31.2 Code: 93021-7 Heart Rate 1: 71 bpm Height: 5' SpO2: 98% Weight: 160 lbs 10/11/2017 Blood Pressure 1: 128/70 Code: 8480-6 BMI: 30.9 Code: 61615-9 Heart Rate 1: 70 bpm Height: 5' SpO2: 95% Weight: 158 lbs 09/22/2017 Blood Pressure 1: 110/52 Code: 8480-6 BMI: 30.9 Code: 33390-3 Heart Rate 1: 72 bpm Height: 5' SpO2: 99% Weight: 158 lbs 07/06/2017 Blood Pressure 1: 120/85 Code: 8480-6 BMI: 31.4 Code: 93776-4 Heart Rate 1: 74 bpm Height: 5' SpO2: 92% Weight: 161 lbs 06/03/2017 Blood Pressure 1: 120/62 Code: 8480-6 BMI: 31.1 Code: 56721-3 Heart Rate 1: 73 bpm Height: 5' SpO2: 99% Weight: 159 lbs 05/12/2017 Blood Pressure 1: 132/68 Code: 8480-6 BMI: 32.4 Code: 71543-9 Heart Rate 1: 95 bpm Height: 5' SpO2: 97% Weight: 166 lbs 04/15/2017 Blood Pressure 1: 128/84 Code: 8480-6 BMI: 32.4 Code: 94868-2 Heart Rate 1: 62 bpm Height: 5' SpO2: 97% Weight: 166 lbs 03/19/2017 Blood Pressure 1: 112/60 Code: 8480-6 BMI: 32.0 Code: 93524-3 Height: 5' Weight: 164 lbs 02/03/2017 Blood Pressure 1: 128/76 Code: 8480-6 BMI: 33.4 Code: 66271-5 Heart Rate 1: 91 bpm Height: 5' SpO2: 99% Weight: 171 lbs 01/07/2017 Blood Pressure 1: 126/74 Code: 8480-6 BMI: 34.2 Code: 51176-8 Heart Rate 1: 83 bpm Height: 5' SpO2: 97% Weight: 175 lbs 12/17/2016 Blood Pressure 1: 122/72 Code: 8480-6 BMI: 34.0 Code: 99012-0 Heart Rate 1: 78 bpm Height: 5' SpO2: 97% Weight: 174 lbs 09/14/2016 Blood Pressure 1: 128/86 Code: 8480-6 BMI: 33.8 Code: 37377-4 Heart Rate 1: 88 bpm Height: 5' SpO2: 96% Weight: 173 lbs 06/18/2016 Blood Pressure 1: 122/74 Code: 8480-6 BMI: 34.8 Code: 68796-4 Heart Rate 1: 78 bpm Height: 5' SpO2: 98% Weight: 178 lbs 04/16/2016 Blood Pressure 1: 134/68 Code: 8480-6 BMI: 35.0 Code: 94030-1 Heart Rate 1: 67 bpm Height: 5' SpO2: 97% Weight: 179 lbs 03/19/2016 Blood Pressure 1: 132/74 Code: 8480-6 BMI: 34.6 Code: 50259-2 Heart Rate 1: 74 bpm Height: 5' SpO2: 97% Weight: 177 lbs 11/14/2015 Blood Pressure 1: 132/70 Code: 8480-6 BMI: 35.2 Code: 53674-3 Heart Rate 1: 68 bpm Height: 5' Weight: 180 lbs 08/14/2015 Blood Pressure 1: 122/74 Code: 8480-6 BMI: 33.8 Code: 57086-6 Heart Rate 1: 73 bpm Height: 5' SpO2: 93% Weight: 173 lbs 07/17/2015 Blood Pressure 1: 138/78 Code: 8480-6 BMI: 34.0 Code: 09226-8 Heart Rate 1: 85 bpm Height: 5' SpO2: 97% Weight: 174 lbs 03/25/2015 Blood Pressure 1: 130/78 Code: 8480-6 BMI: 33.2 Code: 00895-1 Heart Rate 1: 77 bpm Height: 5' SpO2: 97% Weight: 170 lbs 12/04/2014 Blood Pressure 1: 120/74 Code: 8480-6 BMI: 35.4 Code: 02587-8 Heart Rate 1: 67 bpm Height: 5' SpO2: 94% Weight: 181 lbs 5 oz 08/14/2014 Blood Pressure 1: 132/68 Code: 8480-6 BMI: 32.1 Code: 38713-6 Heart Rate 1: 62 bpm Height: 5'3" [...] nausea 01/27/2018 when she came home from [facility] hypertension Blood Pressure Values not checking [...] Encounters Encounter Performer Loca tion Codes Date 95741 EST. PATIENT, LEVEL III Diagnosis: Right upper quadrant pain[ICD10: R10.11] [facility] CPT-4: 84897 04/27/2018 ([id number]) 57277 EST. P ATIENT, LEVEL IV Diagnosis: Essential (primary) hypertension[ICD10: I10] Diagnosis: Right upper quadrant pain[ICD10: R10.11] Mila Nicole MD, C CPT-4: 07311 03/28/2018 ([id number]) 02900 EST. P ATIENT, LEVEL IV Diagnosis: Low back pain[ICD10: M54.5] Diagnosis: Dysuria[ICD10: R30.0] Diagnosis: Type 2 diabetes mellitus with hyperglycemia[ICD10: E11.65] Claudia Nicole MD, [facility] CPT-4: 94706 02/24/2018 ([id number]) 29807 EST. P ATIENT, LEVEL IV Diagnosis: Type 2 diabetes mellitus with hyperglycemia[ICD10: E11.65] Diagnosis: Essential (primary) hypertension[ICD10: I10] Diagnosis: Major depressive disorder, recurrent, mild[ICD10: F33.0] Diagnosis: Generalized anxiety disorder[ICD10: F41.1] Claudia Nicole MD, [facility] CPT-4: 86402 01/27/2018 ([id number]) 61747 EST. P ATIENT, LEVEL IV Diagnosis: Type 2 diabetes mellitus with hyperglycemia[ICD10: E11.65] Diagnosis: Essential (primary) hypertension[ICD10: I10] Diagnosis: Encounter for immunization[ICD10: Z23] Diagnosis: Carpal tunnel syndrome, left upper limb[ICD10: G56.02] Claudia Nicole MD, [facility] CPT-4: 24333 11/25/2017 ([id number]) 76042 EST. P ATIENT, LEVEL III Diagnosis: Type 2 diabetes mellitus with hyperglycemia[ICD10: E11.65] Claudia Nicole MD, [facility] CPT-4: 41399 10/26/2017 ([id number]) Miscellaneou s no charge Diagnosis: Type 2 diabetes mellitus with hyperglycemia[ICD10: E11.65] Claudia Nicole MD, [facility] CPT-4: 49608 10/18/2017 ([id number]) 32353 EST. P ATIENT, LEVEL IV Diagnosis: Type 2 diabetes mellitus with diabetic autonomic (poly)neuropathy[ICD10: E11.43] Diagnosis: Essential (primary) hypertension[ICD10: I10] Mila Nicole MD, C CPT-4: 06436 09/22/2017 ([id number]) 28130 EST. P ATIENT, LEVEL IV Diagnosis: Type 2 diabetes mellitus with hyperglycemia[ICD10: E11.65] Diagnosis: Paroxysmal atrial fibrillation[ICD10: I48.0] Diagnosis: Essential (primary) hypertension[ICD10: I10] Mila Nicole MD, [facility] CPT-4: 88379 07/06/2017 ([id number]) 77307 EST. P ATIENT, LEVEL IV Diagnosis: Essential (primary) hypertension[ICD10: I10] Diagnosis: Type 2 diabetes mellitus with hyperglycemia[ICD10: E11.65] Diagnosis: Paroxysmal atrial fibrillation[ICD10: I48.0] Claudia Nicole MD, [facility] CPT-4: 24425 06/03/2017 11078 EST. PATIENT, LEVEL III Diagnosis: Generalized anxiety disorder[ICD10: F41.1] Diagnosis: Major depressive disorder, recurrent, moderate[ICD10: F33.1] Diagnosis: Paroxysmal tachycardia, unspecified[ICD10: I47.9] Gardenia Nicole MD, [facility] CPT-4: 80473 05/12/2017 ([id number]) 39368 EST. P ATIENT, LEVEL IV Diagnosis: Essential (primary) hypertension[ICD10: I10] Diagnosis: Cough[ICD10: R05] Diagnosis: Dysuria[ICD10: R30.0] Mila Nicole MD, [facility] CPT-4: 87015 04/15/2017 ([id number]) 52553 EST. P ATIENT, LEVEL IV Diagnosis: Type 2 diabetes mellitus with hyperglycemia[ICD10: E11.65] Diagnosis: Essential (primary) hypertension[ICD10: I10] Mila Nicole MD, [facility] CPT-4: 64792 03/19/2017 ([id number]) 25375 EST. P ATIENT, LEVEL III Diagnosis: Type 2 diabetes mellitus with hyperglycemia[ICD10: E11.65] Mila Nicole MD, [facility] CPT-4: 36957 02/03/2017 20733 EST. PATIENT, LEVEL IV Diagnosis: Generalized anxiety disorder[ICD10: F41.1] Diagnosis: Type 2 diabetes mellitus with hyperglycemia[ICD10: E11.65] Diagnosis: Essential (primary) hypertension[ICD10: I10] Gardenia Nicole MD, [facility] CPT-4: 56356 01/07/2017 ([id number]) 33247 EST. P ATIENT, LEVEL III Diagnosis: Type 2 diabetes mellitus with hyperglycemia[ICD10: E11.65] Diagnosis: Encounter for immunization[ICD10: Z23] Mila Nicole MD, [facility] CPT-4: 22718 12/17/2016 ([id number]) 04740 EST. P ATIENT, LEVEL IV Diagnosis: Type 2 diabetes mellitus with hyperglycemia[ICD10: E11.65] Diagnosis: Essential (primary) hypertension[ICD10: I10] Diagnosis: Major depressive disorder, recurrent, mild[ICD10: F33.0] Mila Nicole MD, [facility] CPT-4: 85375 09/14/2016 ([id number]) 34298 EST. 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 P ATIENT, LEVEL IV Diagnosis: Type 2 diabetes mellitus with hyperglycemia[ICD10: E11.65] Diagnosis: Essential (primary) hypertension[ICD10: I10] Mila Nicole MD, [facility] CPT-4: 83760 04/16/2016 ([id number]) 96865 EST. 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 P ATIENT, LEVEL IV Diagnosis: Type 2 diabetes mellitus with hyperglycemia[ICD10: E11.65] Diagnosis: Encounter for immunization[ICD10: Z23] Diagnosis: Essential (primary) hypertension[ICD10: I10] Mila Nicole MD, [facility] CPT-4: 48280 11/14/2015 ([id number]) 00391 EST. P ATIENT, LEVEL IV Diagnosis: Type 2 diabetes mellitus with hyperglycemia[ICD10: E11.65] Diagnosis: Essential (primary) hypertension[ICD10: I10] Diagnosis: Low back pain[ICD10: M54.5] Mila Nicole MD, [facility] CPT-4: 81375 08/14/2015 ([id number]) 94384 EST. P ATIENT, LEVEL IV Diagnosis: Type 2 diabetes mellitus with hyperglycemia[ICD10: E11.65] Diagnosis: Essential (primary) hypertension[ICD10: I10] Diagnosis: Hypothyroidism, unspecified[ICD10: E03.9] Mila Nicole MD, C CPT-4: 35019 07/17/2015 ([id number]) 16418 EST. P ATIENT, LEVEL IV Diagnosis: Essential (primary) hypertension[ICD10: I10] Diagnosis: Type 2 diabetes mellitus with hyperglycemia[ICD10: E11.65] Diagnosis: Headache[ICD10: R51] Gardenia Nicole MD, [facility] CPT-4: 86329 03/25/2015 ([id number]) 71800 EST. P ATIENT, LEVEL IV Diagnosis: ESSENTIAL HYPERTENSION[ICD9: 401.9] Diagnosis: DIABETES TYPE II[ICD9: 250.00] Diagnosis: Aortic stenosis[ICD9: 424.1] Mila Nicole MD, [facility] CPT-4: 39645 12/04/2014 ([id number]) OFFICE VISI T, NEW - LEVEL 4 Diagnosis: ESSENTIAL HYPERTENSION[ICD9: 401.9] Diagnosis: Diabetes mellitus out of control[ICD9: 250.02] Mila Nicole MD, C CPT-4: 65796 08/14/2014 Plan of Care Planned Activity Notes C odes Status Date Patient Education: Patient Medication Summary Completed 06/07/2018 Care Plan: SCREENINGMAMMOGRAPHYDIGITAL LOINC : 40078-4 Pending 06/07/2018 Appointment: Lab Draw 04/28/2018 Patient [...] concerns. 04/27/2018 [facility] [phone] [facility] [place] (10 min) Simple 04/27/2018 Patient Education: Patient Medication Summary Completed 04/27/2018 [phone] [facility] [place] (15 min) Moderate 04/05/2018 Visit [...] regimen. 03/28/2018 [facility]ment: [facility] [phone] [facility] [place] (15 min) Moderate 03/28/2018 Patient Education: Patient Medication Summary Completed 03/28/2018 Patient Education: Hypertension Completed 03/28/2018 Care Plan: ECHO EXAM OF ABDOMEN Pending 03/28/2018 Visit Plan: Low back pain-xray lumb ar spine Dysuria- improved-will culture urine [id number] changes today 02/24/2018 Appointment: [facility] [phone] [phone] [place] (15 min) Moderate 02/24/2018 Patient Education: Patient [...] medications. 01/27/2018 App[facility]ment: [facility] [phone] [phone] (15 min) Moderate 01/27/2018 Patient Education: [...] worse 11/25/2017 Appointment: [facility] [phone] [phone] (15 min) Moderate 11/25/2017 Patient Education: Patient Medication Summary Completed 11/25/2017 [facility]ment: [facility] [phone] [facility] (15 min) Moderate 10/28/2017 Visit Plan: [...] appt. 10/26/2017 Appointment: Claudia Pruitt WPtel: [phone] [phone] (15 min) Moderate 10/26/2017 Patient Education: Patient [...] plan. 10/11/2017 Appointment: [facility] [phone] [phone] (30 min) Complex 10/11/2017 Patient Education: [...] Summary Completed 09/22/2017 Appointment: Mila Nicole WPtel: [phone] [facility] [place] (15 min) Moderate 09/13/2017 Appointment: Mila Nicole WPtel: [phone] [facility] [place] (15 min) Moderate 09/07/2017 Visit Plan: Diabetes Mellitus - con giseled - per recent FSBS reports. I have [...] uncontrolled. 07/06/2017 Appointment: [facility] [phone] [facility] [place] (15 min) Moderate 07/06/2017 Patient Education: Patient Medication Summary Completed 07/06/2017 Appointment: [facility] [phone] [facility] [place] (15 min) Moderate 06/07/2017 Visit [...] controlled. 06/03/2017 Appointment: [facility] [phone] [phone] (30 min) Complex 06/03/2017 Patient Education: [...] plan 05/12/2017 App[facility]ment: [facility] [phone] [facility] ([facility] min) Complex 05/12/2017 Patient Education: Patient Medication Summary Completed 05/12/2017 Visit Plan: Hypertension - well con giseled - continue with current medications, continue with [...] medication. 04/15/2017 App[facility]ment: [facility] [phone] [facility] (15 min) Moderate 04/15/2017 Patient Education: Patient Medication Summary Completed 04/15/2017 Visit Plan: Hypertension - well con dillon - continue with current medications, continue with [...] daily. 03/19/2017 Appointment: [facility] [phone] [facility] [place] (15 min) Moderate 03/19/2017 Patient Education: Patient Medication Summary Completed 03/19/2017 Appointment: Mila Nicole WPtel: [phone] [facility] (15 min) Moderate 02/24/2017 Visit Plan: Diabetes [...] lantus 10 units at HS 02/03/2017 Appointment: Corey, Mila WPtel: [phone] [facility] (15 min) Moderate 02/03/2017 Patient Education: Patient [...] concerns. 01/07/2017 Appointment: [facility] [phone] [facility] (30 min) Complex 01/07/2017 Patient Education: [...] to allow for greater blood glucose control. [id number], 02/2018 junior nordisk 12/17/2016 Appointment: Mila Nicole WPtel: [phone] [facility] (15 min) Moderate 12/17/2016 Patient Education: Patient Medication Summary Completed 12/17/2016 Patient Education: Obesity Completed 12/17/2016 [facility]ment: [facility] [phone] [facility] (15 min) Moderate 12/14/2016 Visit Plan: [...] medications. 09/14/2016 App[facility]ment: [facility] [phone] [facility] (15 min) Moderate 09/14/2016 Patient Education: [...] at home. 06/18/2016 Appointment: Mila Nicole WPtel: [phone] [facility] (15 min) Moderate 06/18/2016 Patient Education: Patient [...] at home. 04/16/2016 Appointment: [facility] [phone] [facility] [place] (15 min) Moderate 04/16/2016 Patient [...] gabapentin 03/19/2016 App[facility]ment: [facility] [phone] [facility] (15 min) Moderate 03/19/2016 Patient Education: [...] home. 11/14/2015 App[facility]ment: [facility] [phone] [facility] (15 min) Moderate 11/14/2015 Patient Education: [...] check Hgba1c 07/17/2015 Appointment: Mila Nicole WPtel: [address] [place] [address] (15 min) Moderate 07/17/2015 Patient Education: Patient [...] Hypertension Completed 03/25/2015 Appointment: Mila Nicole WPtel: [address] [place] [address] (15 min) Moderate 01/14/2015 Visit Plan: Diabetes [...] control. 12/04/2014 App[facility]ment: [facility] [phone] [facility] (15 min) Moderate 12/04/2014 Patient Education: [...] glucose control. 08/14/2014 Appointment: [facility] [phone] [facility] [place] (S) New Patient 08/14/2014 Patient [...] to allow for greater blood glucose control. [id number], 02/2018 junior nordisk CHECK LABS AND UA XRAY LUMBAR . Low back pain-xray lumbar spine Dysuria- improved-will culture urine [id number] changes today . Hypertension - wel l [...]
--- OUTSIDE RECORDS SUMMARY | 2019-03-16 19:28 | XMS REPORT | CCD ---
Author Author Melinda Nicole Organization Mila Nicole MD, [facility] Address [address] [place] [address] Phone Care Team Providers Care Ict Managers Name Role Phone PP Unavailable CCM Unavailable Summary Purpose Interface Exchange Insurance Providers Payer name Policy type / Coverage type Covered democrat ID Effective Begin Date Effective End Date WPS Medicare Part B Medicare Part B [id number] Unknown AARP Medicare Part B [id number] Unknown Family history Mother Diagnosis Age At [...] Unknown 3 08/14/[address]: 024085947 Never smoker 08/14/[address]: 228454763 Never drinks alcohol 08/14/2014 Allergies, Adverse Reactions, Alerts Substance Reaction Codes Entered Date Inactivated Date Status * OTHER REACTION - S EE ANSWER BOX Invokana, Victoza Unknown 03/19/2017 No Inactive Date Active Paxil has blurred vision RxNorm: 723434 08/14/2014 No Inactive Date Active Lipitor RxNorm: 21023 08/14/2014 No Inactive Date Active Past Medical History Illness Codes Condition Status Onset Date Resolved Date Right upper quadrant pain ICD-9: 789.01 ICD-10: [...] Condition Codes Effectiv e Dates Condition Status Right upper quadrant pain ICD-9: 789.01 ICD-10: [...] Date Stop Date Sta tus Fill Instructions Basaglar KwikPen U-1 00 Insulin 100 unit/mL (3 mL) subcutaneous RxNorm: 3472987 INJECT 20 UNITS UNDER THE SKIN ONCE DAILY 05/25/2018 11/20/2018 Active digoxin 250 mcg tablet RxNorm: 595307 0.25 MG PO DAILY 05/13/2018 No Stop Date Active Flagyl 500 mg tablet RxNorm: 341809 1 Tablet(s) PO TID 05/05/2018 05/14/2018 Inactive Flagyl 500 mg tablet RxNorm: 745780 1 Tablet(s) PO TID 05/05/2018 05/04/2018 Inactive Zetia 10 mg tablet RxNorm: 301152 1 Tablet(s) PO daily 03/28/2018 03/22/2019 Active tramadol 50 mg tablet RxNorm: 337423 1 Tablet(s) PO TID as needed 03/25/2018 No Stop Date Active fluticasone 50 mcg/a ctuation nasal spray,suspension RxNorm: 8786204 INSTILL ONE SPRAY IN EACH NOSTRILTWICE A DAY 03/16/2018 10/11/2018 Active Generic For:FLONASE SPR 0.05% 03/16/2018 8:50:59 AM Keflex 500 mg capsule RxNorm: 133615 1 Capsule(s) PO TID 02/11/2018 02/10/2018 Inactive Keflex 500 mg capsule RxNorm: 553296 1 Capsule(s) PO TID 02/11/2018 02/20/2018 Inactive metoprolol succinate ER 200 mg tablet,extended release 24 hr RxNorm: 248703 1 Tablet(s) PO daily 01/27/2018 No Stop Date Active Eliquis 2.5 mg tablet RxNorm: 5550148 1 Tablet(s) PO BID 01/27/2018 No Stop Date Active digoxin 125 mcg tablet RxNorm: 226735 1 Tablet(s) PO daily 01/27/2018 No Stop Date Active Basaglar KwikPen U-1 00 Insulin 100 unit/mL (3 mL) subcutaneous RxNorm: 2662757 20 Unit(s) SQ daily 11/25/2017 05/23/2018 Inactive UPDATE RX metformin 500 mg tablet RxNorm: 781211 1 Tablet(s) PO UD 1.5 in morning, noon a nd 1 at bedtime 10/28/2017 10/22/2018 Active Basaglar KwikPen U-1 00 Insulin 100 unit/mL (3 mL) subcutaneous RxNorm: 8618443 18 Unit(s) SQ daily 10/26/2017 11/24/2017 Inactive UPDATE RX levothyroxine 50 mcg tablet RxNorm: 563465 TAKE 1 TABLET BY MOUT H ONCE DAILY 10/15/2017 06/11/2018 Ac tive Generic For:SYNTHROID 50MCG TAB 018 9:59:00 AM escitalopram 10 mg t ablet RxNorm: 662638 1 Tablet(s) PO QPM 09/22/2017 09/16/2018 Active Generic For:LEXAPRO 5MG 01/07/2017 9:05 :43 AM Basaglar KwikPen U-1 00 Insulin 100 unit/mL (3 mL) subcutaneous RxNorm: 4026716 15 Unit(s) SQ daily 09/22/2017 10/25/2017 Inactive potassium chloride E R 20 mEq tablet,extended release RxNorm: 033422 1 Tablet(s) PO daily 06/22/2017 01/17/2018 Inactive Lantus Solostar U-10 0 Insulin 100 unit/mL (3 mL) subcutaneous pen RxNorm: 429829 10 Unit(s) SQ daily 06/08/2017 06/08/2017 Inactive Basaglar KwikPen U-1 00 Insulin 100 unit/mL (3 mL) subcutaneous RxNorm: 8134685 10 Unit(s) SQ daily 06/08/2017 06/07/2017 Inactive Basaglar KwikPen U-1 00 Insulin 100 unit/mL (3 mL) subcutaneous RxNorm: 8865876 10 Unit(s) SQ daily 06/08/2017 09/21/2017 Inactive Lexapro 5 mg tablet RxNorm: 798277 1 Tablet(s) PO daily 06/01/2017 11/27/2017 Inactive Lexapro 5 mg tablet RxNorm: 355089 1 Tablet(s) PO daily 05/12/2017 05/31/2017 Inactive bisoprolol 5 mg-hydr ochlorothiazide 6.25 mg tablet RxNorm: 173893 1 Tablet(s) PO BID 05/04/2017 06/02/2017 Inactive Keflex 500 mg capsule RxNorm: 584789 1 Capsule(s) PO QID 04/15/2017 04/21/2017 Inactive Lantus Solostar 100 unit/mL (3 mL) subcutaneous insulin pen RxNorm: 420487 10 Unit(s) SQ daily 02/03/2017 06/07/2017 Inactive levothyroxine 50 mcg tablet RxNorm: 300920 TAKE 1 TABLET BY MOUT H ONCE DAILY 02/01/2017 09/28/2017 In active Generic For:SYNTHROID 50MCG TAB 017 9:20:59 AM gabapentin 600 mg ta blet RxNorm: 753632 1 Capsule(s) PO TID 01/27/2017 01/21/2018 Inactive Lexapro 5 mg tablet RxNorm: 010621 TAKE 1 TABLET BY MOUTH AT BEDTIME 01/07/2017 09/21/2017 In active Generic For:LEXAPRO 5MG 01/07/2017 9:05 :43 AM Victoza 2-Dariusz 0.6 mg /0.1 mL (18 mg/3 mL) subcutaneous pen injector RxNorm: 868718 1.8 Milligram(s) SQ daily 12/17/2016 02/07/2017 Inactive Victoza 3-Dariusz 0.6 mg /0.1 mL (18 mg/3 mL) subcutaneous pen injector RxNorm: 021795 Milligram(s) SQ 12/17/2016 02/07/2017 Inactive Zetia 10 mg tablet RxNorm: 484811 1 Tablet(s) PO daily 11/17/2016 11/11/2017 Inactive fluticasone 50 mcg/a ctuation nasal spray,suspension RxNorm: 3786140 [place] NASAL ONE SPRAY IN EACH NOSTRIL TWICE DAILY 09/28/2016 04/25/2017 Inactive Victoza 2-Dariusz 0.6 mg /0.1 mL (18 mg/3 mL) subcutaneous pen injector RxNorm: 820767 1.2 Milligram(s) SQ daily 09/14/2016 12/16/2016 Inactive Lexapro 5 mg tablet RxNorm: 004697 1 Tablet(s) PO QHS 09/14/2016 12/12/2016 Inactive metformin 500 mg tablet RxNorm: 985659 1 Tablet(s) PO UD 1.5 in morning, noon a nd 1 at bedtime 09/08/2016 09/02/2017 Inactive glimepiride 4 mg tablet RxNorm: 758699 TAKE 1 TABLET BY MOUTH ONCE DAILY 07/31/2016 09/13/2016 In active Generic For:*AMARYL 4MG 07/31/2016 9:02 :38 AM Victoza 2-Dariusz 0.6 mg /0.1 mL (18 mg/3 mL) subcutaneous pen injector RxNorm: 956800 1.2 Milligram(s) SQ daily 05/18/2016 09/13/2016 Inactive Victoza 2-Dariusz 0.6 mg /0.1 mL (18 mg/3 mL) subcutaneous pen injector RxNorm: 342170 1.2 Milligram(s) SQ daily 04/16/2016 05/17/2016 Inactive levothyroxine 50 mcg tablet RxNorm: 927795 TAKE 1 TABLET BY MOUT H ONCE DAILY 04/08/2016 12/03/2016 In active Generic For:SYNTHROID 50MCG TAB 017 9:05:40 AM levothyroxine 50 mcg tablet RxNorm: 499067 1 Tablet(s) PO daily TAKE 1 TABLET BY MOUTH ONCE DAILY 04/08/2016 12/03/2016 Inactive Generic For:SYNTHROID 50MCG TAB N O T I C E PRESCRIPTION PREVIOUSLY AUTHORIZED BY DOCTOR:HENRY BAIG bisoprolol 5 mg-hydr ochlorothiazide 6.25 mg tablet RxNorm: 962385 1 Tablet(s) PO BID 03/23/2016 03/17/2017 Inactive Victoza 2-Dariusz 0.6 mg /0.1 mL (18 mg/3 mL) subcutaneous pen injector RxNorm: 473957 0.6 Milligram(s) SQ daily 03/19/2016 04/15/2016 Inactive Lexapro 5 mg tablet RxNorm: 927534 1 Tablet(s) PO QHS 03/19/2016 06/16/2016 Inactive gabapentin 600 mg ta blet RxNorm: 520321 1 Capsule(s) PO TID 03/19/2016 01/26/2017 Inactive glimepiride 4 mg tablet RxNorm: 041733 1 Tablet(s) PO daily 12/09/2015 06/05/2016 Inactive Victoza 3-Dariusz 0.6 mg /0.1 mL (18 mg/3 mL) subcutaneous pen injector RxNorm: 981974 0.6 Milligram(s) SQ daily x2 weeks, then 1.2 mg SQ daily 12/02/2015 03/18/2016 Inactive metformin 500 mg tablet RxNorm: 543565 1 Tablet(s) PO UD 1.5 in morning, noon a nd 1 at bedtime 08/14/2015 08/07/2016 Inactive gabapentin 600 mg ta blet RxNorm: 563602 1 Capsule(s) PO TID S HE IS ONLY TAKING 1 QD 08/14/2015 03/18/2016 In active fluticasone 50 mcg/a ctuation nasal spray,suspension RxNorm: 787257 [place] NASAL ONE SPRAY IN EACH NOSTRIL TWICE DAILY 07/26/2015 07/25/2015 Inactive fluticasone 50 mcg/a ctuation nasal spray,suspension RxNorm: 9538794 [place] NASAL ONE SPRAY IN EACH NOSTRIL TWICE DAILY 07/26/2015 02/20/2016 Inactive bisoprolol 5 mg-hydr ochlorothiazide 6.25 mg tablet RxNorm: 545899 1 Tablet(s) PO daily 1 Tablet(s) PO BID 07/17/2015 01/12/2016 Inactive metformin 500 mg tablet RxNorm: 936654 1 Tablet(s) PO TID 1 Tablet(s) PO TID 07/17/2015 08/13/2015 In active Diflucan 100 mg tablet RxNorm: 798873 1 Tablet(s) PO daily 07/17/2015 07/21/2015 Inactive Zetia 10 mg tablet RxNorm: 728994 1 Tablet(s) PO daily 06/10/2015 06/03/2016 Inactive bisoprolol 5 mg-hydr ochlorothiazide 6.25 mg tablet RxNorm: 944561 1 Tablet(s) PO BID 04/18/2015 07/16/2015 Inactive metformin 500 mg tablet RxNorm: 065465 1 Tablet(s) PO TID 03/01/2015 06/28/2015 Inactive glimepiride 4 mg tablet RxNorm: 300532 1 Tablet(s) PO daily 01/31/2015 01/30/2015 Inactive levothyroxine 50 mcg tablet RxNorm: 261183 TAKE 1 TABLET BY MOUT H ONCE DAILY 01/31/2015 09/27/2015 In active Generic For:SYNTHROID 50MCG TAB N O T I C E PRESCRIPTION PREVIOUSLY AUTHORIZED BY DOCTOR:HENRY BAIG glimepiride 4 mg tablet RxNorm: 882037 1 Tablet(s) PO daily 01/31/2015 07/29/2015 Inactive Invokana 100 mg tablet RxNorm: 4489227 1 Tablet(s) PO daily 12/12/2014 07/16/2015 Inactive bisoprolol 5 mg-hydr ochlorothiazide 6.25 mg tablet RxNorm: 301072 1 Tablet(s) PO BID 08/27/2014 02/22/2015 Inactive metformin 500 mg tablet RxNorm: 166850 1 Tablet(s) PO TID 08/10/2014 12/07/2014 Inactive metformin 500 mg tablet RxNorm: 695860 1 Tablet(s) PO TID 08/10/2014 08/09/2014 Inactive Fish Oil 1,000 mg ca psule RxNorm: 1 Capsule(s) PO daily No Start Date Active Protonix 40 mg table t,delayed release RxNorm: 338962 1 Tablet(s) PO QAM No Start Date Active furosemide 40 mg tablet RxNorm: 643124 1 Tablet(s) PO daily No Start Date Active pen needle, diabetic 31 gauge x 1/6" RxNorm: Miscellaneous N o Start Date Active Elavil 25 mg tablet RxNorm: 891591 1 Tablet(s) PO QPM No Start Date Active nitroglycerin 0.4 mg sublingual tablet RxNorm: 388260 1 Tablet(s) SL as nee ded chest pain No Start Date Active amlodipine 5 mg tablet RxNorm: 998218 1 Tablet(s) PO daily No Start Date Active Entresto 24 mg-26 mg tablet RxNorm: 0452995 1 Tablet(s) PO BID No Start Date Active aspirin 81 mg chewab le tablet RxNorm: 649133 1 Tablet(s) PO daily No Start Date 06/02/2017 Inactive Eliquis 5 mg tablet RxNorm: 5346928 1 Tablet(s) PO BID No Start Date 01/26/2018 Inactive bisoprolol-hydrochlo rothiazide oral RxNorm: [address] art Date 08/26/2014 Inactive levothyroxine 50 mcg tablet RxNorm: 348256 1 Tablet(s) PO daily No Start Date 01/30/2015 Inactive potassium chloride E R 20 mEq tablet,extended release RxNorm: 416399 1 Tablet(s) PO daily No Start Date 06/21/2017 Inactive digoxin 250 mcg tablet RxNorm: 033077 1 Tablet(s) PO daily No Start Date 01/26/2018 Inactive Invokana 100 mg tablet RxNorm: 2704112 1 Tablet(s) PO daily No Start Date 12/11/2014 Inactive tramadol 50 mg tablet RxNorm: 287544 1 Tablet(s) PO TID as needed No Start Date 03/22/2018 Inactive Victoza 3-Dariusz 0.6 mg /0.1 mL (18 mg/3 mL) subcutaneous pen injector RxNorm: 438587 0.6 Milligram(s) SQ daily x2 weeks, then 1.2 mg SQ daily No Start Date 12/01/2015 Inactive Effient 10 mg tablet RxNorm: 834745 1 Tablet(s) PO QAM No Start Date 01/26/2018 Inactive Zetia 10 mg tablet RxNorm: 057701 1 Tablet(s) PO BID No Start Date 03/18/2016 Inactive metoprolol succinate ER 100 mg tablet,extended release 24 hr RxNorm: 122665 1 Tablet(s) PO daily No Start Date 01/26/2018 Inactive gabapentin 300 mg ca psule RxNorm: 587347 1 Capsule(s) PO BID No Start Date 08/13/2015 Inactive Lasix 40 mg tablet RxNorm: 552866 1 Tablet(s) PO BID No Start Date 04/14/2017 Inactive Coreg 3.125 mg tablet RxNorm: 283855 1 Tablet(s) PO BID with meals No Start Date 06/02/2017 Inactive Medication Administered No Medication Administered data Immunizations Vaccine Codes Date Status Influenza CVX: 141 11/25 completed Influenza CVX: 141 12/17 completed Influenza CVX: 141 11/13 completed Influenza CVX: 141 12/04 completed Assessments Condition Codes Effectiv e Dates Right upper quadrant pain ICD-10: R1 0.11 [...] 04/15/2017 stress test and then shipped to [facility] Follow Up 03/19/2017 stress test and then shipped to [facility] diabetes mellitus 02/03/2017 headache 01/07/2017 diabetes mellitus 12/17/2016 diabetes mellitus 09/14/2016 diabetes mellitus 06/18/2016 medication follow up 04/16/2016 back pain 03/19/2016 back pain 11/14/2015 back pain 08/14/2015 diabetes mellitus 07/17/2015 Hospital Follow Up 03/25/2015 diabetes mellitus 12/04/2014 diabetes mellitus 08/14/2014 Results Observation Observation Code Item Item Code Result Date Cancer Antigen (CA) 125 088037 CANCER ANTIGEN (CA) 125 13.0 U/ML 06/06/2018 Culture Urine [id number] URI NE CULTURE SEE NOTES 02/28/2018 Urine [...] 28.8 pg 02/24/2018 Cbc With Differential Ord2 [place]% 5.7 % 02/24/2018 Cbc With Differential Ord2 [...] 1.57 K/ul 02/24/2018 Cbc With Differential Ord2 [place] ABS# 0.4 K/ul 02/24/2018 Cbc With Differential Ord2 Eos ABS# 0.1 K/ul 02/24/2018 Cbc With Differential Ord2 Baso ABS# 0.0 K/ul 02/24/2018 Comp Metabolic Jwk468 NA 138 mEq/L 02/24/2018 Comp Metabolic Nze261 K 4.4 mEq/L 02/24/2018 Comp Metabolic Kex422 CL 100 mEq/L 02/24/2018 Comp Metabolic Thi389 CO2 27.0 mEq/L 02/24/2018 Comp Metabolic Uyj291 AN ION GAP 15 02/24/2018 Comp Metabolic Cwg483 GL UCOSE 98 mg/dL 02/24/2018 Comp Metabolic Usa073 Cr eat 1.0 mg/dL 02/24/2018 Comp Metabolic Nhn767 eG FR 55 ml/min/1.73m2 02/24 Comp Metabolic Sjs224 BUN 25 mg/dL 02/24/2018 Comp Metabolic Jae033 B/ C Ratio 24.3 Ratio 02/24/2018 Comp Metabolic Nfm592 CA LCIUM 9.4 mg/dL 02/24/2018 Comp Metabolic Vjq117 AL K PHOS 46 U/L 02/24/2018 Comp Metabolic Ksl428 T(SGOT) 13 U/L 02/24/2018 Comp Metabolic Xyl974 AL T(SGPT) 12 U/L 02/24/2018 Comp Metabolic Lny324 BI LI T 0.4 mg/dL 02/24/2018 Comp Metabolic Nhw693 AL BUMIN 4.5 g/dL 02/24/2018 Comp Metabolic Vgp044 TP RO 6.6 g/dL 02/24/2018 Comp Metabolic Wrp398 GL OB 2.1 g/dL 02/24/2018 Comp Metabolic Gaf501 A/ G Ratio 2.1 Ratio 02/24/2018 Comp Metabolic Gol277 Os mo 280 mOsmo 02/24/2018 Culture Urine [id number] URI NE CULTURE SEE NOTES 02/11/2018 Culture Urine [id number] Con tinued Results 02/11/2018 Urine Culture Ucult Comp lete >100,000 col/ml aerobic grow th sent to ref lab 02/08/2018 %Hba1C Bgi076 % HbA1c 33926-9 6.8 % 01/12/2018 %Hba1C Hxu532 Gluc Ave 148 mg/dL 01/12/2018 Metabolic Ord15 [...] 28.6 pg 01/11/2018 Cbc With Differential Ord2 [place]% 7.8 % 01/11/2018 Cbc With Differential Ord2 [...] 1.70 K/ul 01/11/2018 Cbc With Differential Ord2 [place] ABS# 0.4 K/ul 01/11/2018 Cbc With Differential Ord2 Eos ABS# 0.1 K/ul 01/11/2018 Cbc With Differential Ord2 Baso ABS# 0.0 K/ul 01/11/2018 Magnesium Ord90 Mag 1.7 mg/dL 01/11/2018 Test(s) Not Perfromed [id number] Test(s) Not Performed Test(s) Not Performed. See Below: 09/20/2017 Test(s) Not Perfromed [id number] TEST NAME BNP 09/20/2017 Test(s) Not Perfromed [id number] Rejection Reason Patient Refused due to lack of coving diganosis 09/20/2017 Test(s) Not Perfromed SQC2111 COMMENT Dorita Notified 11/2017 Test(s) Not Perfromed OPB1109 Body Liner Miguel Mclaughlin 09/20/2017 B Type Natriuretic Peptide Wig9383 B-BIGHT MAKER 889.00 pg/ml 8 Cbc With Differential Ord2 [...] 28.9 pg 09/20/2017 Cbc With Differential Ord2 [place]% 5.6 % 09/20/2017 Cbc With Differential Ord2 [...] 1.68 K/ul 09/20/2017 Cbc With Differential Ord2 [place] ABS# 0.3 K/ul 09/20/2017 Cbc With Differential Ord2 Eos ABS# 0.1 K/ul 09/20/2017 Cbc With Differential Ord2 Baso ABS# 0.0 K/ul 09/20/2017 %Hba1C Sbo187 % HbA1c 48914-5 7.9 % 09/20/2017 %Hba1C Zun711 Gluc Ave 180 mg/dL 09/20/2017 Magnesium Ord90 [...] 28.3 pg 07/07/2017 Cbc With Differential Ord2 [place]% 7.9 % 07/07/2017 Cbc With Differential Ord2 [...] 1.34 K/ul 07/07/2017 Cbc With Differential Ord2 [place] ABS# 0.4 K/ul 07/07/2017 Cbc With Differential Ord2 Eos ABS# 0.1 K/ul 07/07/2017 Cbc With Differential Ord2 Baso ABS# 0.0 K/ul 07/07/2017 Comp Metabolic Xxw057 NA 142 mEq/L 07/07/2017 Comp Metabolic Kiu347 K 4.3 mEq/L 07/07/2017 Comp Metabolic Oea158 CL 105 mEq/L 07/07/2017 Comp Metabolic Vis716 CO2 28.0 mEq/L 07/07/2017 Comp Metabolic Gwq472 AN ION GAP 13 07/07/2017 Comp Metabolic Wqh892 GL UCOSE 197 mg/dL 07/07/2017 Comp Metabolic Wnl195 Cr eat 1.1 mg/dL 07/07/2017 Comp Metabolic Nns446 eG FR 51 ml/min/1.73m2 07/07 Comp Metabolic Nrd596 BUN 21 mg/dL 07/07/2017 Comp Metabolic Acu931 B/ C Ratio 18.9 Ratio 07/07/2017 Comp Metabolic Lbe837 CA LCIUM 8.9 mg/dL 07/07/2017 Comp Metabolic Qdl134 AL K PHOS 51 U/L 07/07/2017 Comp Metabolic Agv519 T(SGOT) 11 U/L 07/07/2017 Comp Metabolic Jsj092 AL T(SGPT) 11 U/L 07/07/2017 Comp Metabolic Tta900 BI LI T 0.3 mg/dL 07/07/2017 Comp Metabolic Aij264 AL BUMIN 4.2 g/dL 07/07/2017 Comp Metabolic Hnf691 TP RO 6.0 g/dL 07/07/2017 Comp Metabolic Aro621 GL OB 1.8 g/dL 07/07/2017 Comp Metabolic Gyl469 A/ G Ratio 2.3 Ratio 07/07/2017 Comp Metabolic Twf270 Os mo 292 mOsmo 07/07/2017 Digoxin Ord9 DIGOXIN 1.3 NG/ML 07/07/2017 Tsh Ord6 TSH (3rd IS) 2.19 uIU/mL 07/07/2017 B Type Natriuretic Peptide Zgb7525 B-BIGHT MAKER 801.00 pg/ml 8 Culture Urine [id number] URI NE CULTURE SEE NOTES 04/19/2017 Culture Urine [id number] Con tinued Results 04/19/2017 Urine Culture Ucult Comp lete >100,000 col/ml aerobic grow th sent to ref lab 04/16/2017 Comp Metabolic Sqi060 NA 140 mEq/L 01/26/2017 Comp Metabolic Cbr810 K 4.6 mEq/L 01/26/2017 Comp Metabolic Vmw644 CL 102 mEq/L 01/26/2017 Comp Metabolic Tbv527 CO2 28.0 mEq/L 01/26/2017 Comp Metabolic Pos716 AN ION GAP 15 01/26/2017 Comp Metabolic Eoa957 GL UCOSE 173 mg/dL 01/26/2017 Comp Metabolic Qah566 Cr eat 1.0 mg/dL 01/26/2017 Comp Metabolic Bfp816 eG FR 56 ml/min/1.73m2 01/26 Comp Metabolic Zop138 BUN 23 mg/dL 01/26/2017 Comp Metabolic Vly470 B/ C Ratio 22.5 Ratio 01/26/2017 Comp Metabolic Kqs627 CA LCIUM 9.4 mg/dL 01/26/2017 Comp Metabolic Xgo566 AL K PHOS 52 U/L 01/26/2017 Comp Metabolic Ccv973 T(SGOT) 12 U/L 01/26/2017 Comp Metabolic Ehu724 AL T(SGPT) 12 U/L 01/26/2017 Comp Metabolic Uqa709 BI LI T 0.5 mg/dL 01/26/2017 Comp Metabolic Fvc969 AL BUMIN 4.4 g/dL 01/26/2017 Comp Metabolic Uia551 TP RO 6.5 g/dL 01/26/2017 Comp Metabolic Kcn687 GL OB 2.1 g/dL 01/26/2017 Comp Metabolic Tht028 A/ G Ratio 2.1 Ratio 01/26/2017 Comp Metabolic Dzv578 Os mo 287 mOsmo 01/26/2017 Cbc With [...] 29.2 pg 01/26/2017 Cbc With Differential Ord2 [place]% 4.9 % 01/26/2017 Cbc With Differential Ord2 [...] 1.75 K/ul 01/26/2017 Cbc With Differential Ord2 [place] ABS# 0.4 K/ul 01/26/2017 Cbc With Differential Ord2 Eos ABS# 0.1 K/ul 01/26/2017 Cbc With Differential Ord2 Baso ABS# 0.0 K/ul 01/26/2017 %Hba1C Fml544 % HbA1c 39929-8 7.8 % 01/26/2017 %Hba1C Tft668 Gluc Ave 177 mg/dL 01/26/2017 Lipid Ord30 CHOL 239 mg/dL 01/26/2017 Lipid Ord30 HDL 40.0 mg/dl 01/26/2017 Lipid Ord30 TRIG 325 mg/dL 01/26/2017 Lipid Ord30 LDL 134 mg/dL 01/26/2017 Lipid Ord30 C/HDL 6.0 Ratio 01/26/2017 Free T4 Qbe137 FREE T4 0.95 ng/dL 01/26/2017 Tsh Ord6 [...] Metabolic Ord15 CALCIUM 9.0 mg/dL 09/08/2016 %Hba1C Lmd333 % HbA1c 10162-2 7.5 % 09/08/2016 %Hba1C Xvc900 Gluc Ave 169 mg/dL 09/08/2016 Tsh Ord6 hTSH II 2.64 uIU/mL 03/13/2016 %Hba1C Qbf158 % HbA1c 96864-1 8.2 % 03/13/2016 %Hba1C Tnz812 Gluc Ave 189 mg/dL 03/13/2016 Lipid Ord30 CHOL 233 mg/dL 03/13/2016 Lipid Ord30 HDL 46.0 mg/dl 03/13/2016 Lipid Ord30 TRIG 276 mg/dL 03/13/2016 Lipid Ord30 LDL 132 mg/dL 03/13/2016 Lipid Ord30 C/HDL 5.1 Ratio 03/13/2016 Free T4 Hgl115 FREE T4 0.94 ng/dL 03/13/2016 Cbc With [...] 30.3 pg 03/13/2016 Cbc With Differential Ord2 [place]% 6.1 % 03/13/2016 Cbc With Differential Ord2 [...] 1.63 K/ul 03/13/2016 Cbc With Differential Ord2 [place] ABS# 0.3 K/ul 03/13/2016 Cbc With Differential Ord2 Eos ABS# 0.1 K/ul 03/13/2016 Cbc With Differential Ord2 Baso ABS# 0.0 K/ul 03/13/2016 Comp Metabolic Ugr354 NA 139 mEq/L 03/13/2016 Comp Metabolic Jgq722 K 4.3 mEq/L 03/13/2016 Comp Metabolic Oiu292 CL 103 mEq/L 03/13/2016 Comp Metabolic Oky784 CO2 28.0 mEq/L 03/13/2016 Comp Metabolic Oob181 AN ION GAP 12 03/13/2016 Comp Metabolic Fze534 GL UCOSE 200 mg/dL 03/13/2016 Comp Metabolic Zvi105 Cr eat 0.9 mg/dL 03/13/2016 Comp Metabolic Nbw617 eG FR 69 ml/min/1.73m2 03/13 Comp Metabolic Ycb053 BUN 19 mg/dL 03/13/2016 Comp Metabolic Lby631 B/ C Ratio 22.4 Ratio 03/13/2016 Comp Metabolic Nrd906 CA LCIUM 9.0 mg/dL 03/13/2016 Comp Metabolic Nmx337 AL K PHOS 57 U/L 03/13/2016 Comp Metabolic Qju147 T(SGOT) 13 U/L 03/13/2016 Comp Metabolic Peg889 AL T(SGPT) 16 U/L 03/13/2016 Comp Metabolic Yfc661 BI LI T 0.4 mg/dL 03/13/2016 Comp Metabolic Msn794 AL BUMIN 4.2 g/dL 03/13/2016 Comp Metabolic Szn453 TP RO 6.3 g/dL 03/13/2016 Comp Metabolic Vsi716 GL OB 2.1 g/dL 03/13/2016 Comp Metabolic Fkx892 A/ G Ratio 2.0 Ratio 03/13/2016 Comp Metabolic Bsb520 Os mo 285 mOsmo 03/13/2016 %Hba1C Lpn156 % HbA1c 72424-8 8.3 % 11/14/2015 %Hba1C Hgh761 Gluc Ave 192 mg/dL 11/14/2015 Lipid Ord30 CHOL 210 mg/dL 07/19/2015 Lipid Ord30 HDL 43.0 mg/dl 07/19/2015 Lipid Ord30 TRIG 311 mg/dL 07/19/2015 Lipid Ord30 LDL 105 mg/dL 07/19/2015 Lipid Ord30 C/HDL 4.9 Ratio 07/19/2015 %Hba1C Eyg308 % HbA1c 41013-6 7.6 % 07/19/2015 %Hba1C Mde232 Gluc Ave 171 mg/dL 07/19/2015 Cbc With [...] 28.8 pg 07/19/2015 Cbc With Differential Ord2 [place]% 6.1 % 07/19/2015 Cbc With Differential Ord2 [...] 1.63 K/ul 07/19/2015 Cbc With Differential Ord2 [place] ABS# 0.3 K/ul 07/19/2015 Cbc With Differential Ord2 Eos ABS# 0.1 K/ul 07/19/2015 Cbc With Differential Ord2 Baso ABS# 0.0 K/ul 07/19/2015 Cbc With Differential Ord2 New Analyzer Notice Please note new ref ranges s tarting 03-27-2015 due to implemntation of new five part differential hematolgy analyzer. 07/19/2015 Comp Metabolic Glr041 NA 138 mEq/L 07/19/2015 Comp Metabolic Uwh074 K 4.3 mEq/L 07/19/2015 Comp Metabolic Bqd662 CL 100 mEq/L 07/19/2015 Comp Metabolic Kqh049 CO2 33.0 mEq/L 07/19/2015 Comp Metabolic Vkp479 AN ION GAP 9 07/19/2015 Comp Metabolic Elq567 GL UCOSE 149 mg/dL 07/19/2015 Comp Metabolic Fuo454 Cr eat 0.9 mg/dL 07/19/2015 Comp Metabolic Zxy102 eG FR 62 ml/min/1.73m2 07/18 Comp Metabolic Xrk828 BUN 19 mg/dL 07/19/2015 Comp Metabolic Wtt892 B/ C Ratio 20.2 Ratio 07/19/2015 Comp Metabolic Ajb388 CA LCIUM 9.5 mg/dL 07/19/2015 Comp Metabolic Gti057 AL K PHOS 52 U/L 07/19/2015 Comp Metabolic Wez561 T(SGOT) 15 U/L 07/19/2015 Comp Metabolic Ecb360 AL T(SGPT) 14 U/L 07/19/2015 Comp Metabolic Hfw713 BI LI T 0.5 mg/dL 07/19/2015 Comp Metabolic Bqp977 AL BUMIN 4.4 g/dL 07/19/2015 Comp Metabolic Vsb067 TP RO 6.4 g/dL 07/19/2015 Comp Metabolic Iei413 GL OB 2.0 g/dL 07/19/2015 Comp Metabolic Mrw785 A/ G Ratio 2.2 Ratio 07/19/2015 Comp Metabolic Ccl730 Os mo 281 mOsmo 07/19/2015 Free T4 Vzb200 FREE T4 0.92 ng/dL 07/19/2015 Tsh Ord6 hTSH II 1.95 uIU/mL 07/19/2015 Microalbumin Oun576 Micr oAlb 0.4 mg/dL 07/19/2015 Comp Metabolic Tng264 NA 137 mEq/L 12/04/2014 Comp Metabolic Cou207 K 4.0 mEq/L 12/04/2014 Comp Metabolic Wno080 CL 100 mEq/L 12/04/2014 Comp Metabolic Yeo630 CO2 29.0 mEq/L 12/04/2014 Comp Metabolic Cjg943 AN ION GAP 12 12/04/2014 Comp Metabolic Xnp560 GL UCOSE 171 mg/dL 12/04/2014 Comp Metabolic Bwh366 Cr eat 1.0 mg/dL 12/04/2014 Comp Metabolic Uzl723 eG FR 60 ml/min/1.73m2 12/04 Comp Metabolic Wly684 BUN 25 mg/dL 12/04/2014 Comp Metabolic Xds298 B/ C Ratio 25.8 Ratio 12/04/2014 Comp Metabolic Imf084 CA LCIUM 9.4 mg/dL 12/04/2014 Comp Metabolic Lrq218 AL K PHOS 60 U/L 12/04/2014 Comp Metabolic Sgy681 T(SGOT) 13 U/L 12/04/2014 Comp Metabolic Jyj758 AL T(SGPT) 17 U/L 12/04/2014 Comp Metabolic Roi187 BI LI T 0.4 mg/dL 12/04/2014 Comp Metabolic Kpx232 AL BUMIN 4.4 g/dL 12/04/2014 Comp Metabolic Ysi370 TP RO 6.9 g/dL 12/04/2014 Comp Metabolic Izp243 GL OB 2.5 g/dL 12/04/2014 Comp Metabolic Awq791 A/ G Ratio 1.8 Ratio 12/04/2014 Comp Metabolic Bnh714 Os mo 282 mOsmo 12/04/2014 Tsh Ord6 hTSH II 1.78 uIU/mL 12/04/2014 %Hba1C Rqp723 % HbA1c 30956-5 8.3 % 12/04/2014 %Hba1C Bmt513 Gluc Ave 192 mg/dL 12/04/2014 Free T4 Cbx743 FREE T4 0.85 ng/dL 12/04/2014 Lipid Ord30 [...] No alteration of consciousness 09/14/2016 Psychiatric anxiety 0705/2016 Psychiatric depression 0 09/14/2016 Constitutional No recent [...] nourished 04/27/2018 None Full Exam - General 1995 Constitutional general appearance Hygiene/Attention to Grooming: good hygiene 04/27/2018 None Full Exam - General 1995 Eyes conjunctiva/eyelids Overall: conjunctiva clear 04/27/2018 None Full Exam - General 1995 Eyes conjunctiva/eyelids Overall: cornea clear 04/27/2018 None [...] Exam - General 1995 Eyes conjunctiva/eyelids Overall: conjunctiva clear 05/12/2017 None Full Exam - General 1995 Eyes conjunctiva/eyelids Overall: cornea clear 05/12/2017 None Full Exam - General 1995 Eyes conjunctiva/eyelids Overall: eyelids normal 05/12/2017 None [...] Date URINALYSIS NONAUTO W /O SCOPE CPT-4: 84545 04/28/2018 URINALYSIS NONAUTO W /O SCOPE CPT-4: 68468 02/24/2018 URINALYSIS NONAUTO W /O SCOPE CPT-4: 25950 02/07/2018 ADMIN INFLUENZA VIRU S VAC CPT-4: G0008 11/25/2017 FLU VAC NO PRSV 4 VA L 3 YRS+ CPT-4: 50277 11/25/2017 GLUC MONITOR CONT PH YS I&R CPT-4: 04906 10/26/2017 GLUCOSE MONITORING CONT CPT-4: 65496 10/11/2017 URINALYSIS NONAUTO W /O SCOPE CPT-4: 90545 04/15/2017 FLU VAC NO PRSV 4 VA L 3 YRS+ CPT-4: 17790 12/17/2016 ADMIN INFLUENZA VIRU S VAC CPT-4: G0008 12/17/2016 FLU VACC PRSV FREE I NC ANTIG Formatting Model/CDA Sections, Assigned to/Nery Daniels CPT-4: [id number] 11/14/2015 ADMIN INFLUENZA VIRU S VAC CPT-4: G0008 11/14/2015 ADMIN INFLUENZA VIRU S VAC Formatting Model/CDA Sections, Assigned to/Nery Daniels CPT-4: [id number] 12/04/2014 FLU VACC 4 ANABELLE 3 YRS PLUS IM SNOMED CT: [id number] CPT-4: 77252 12/04/2014 Vital Signs Date Vital 04/27/2018 Blood Pressure 1: 118/44 Code: 8480-6 BMI: 28.3 Code: 35089-5 Heart Rate 1: 77 bpm Height: 5' SpO2: 99% Weight: 145 lbs 03/28/2018 Blood Pressure 1: 140/74 Code: 8480-6 BMI: 28.1 Code: 56966-5 Heart Rate 1: 87 bpm Height: 5' SpO2: 99% Weight: 144 lbs 02/24/2018 Blood Pressure 1: 130/62 Code: 8480-6 BMI: 28.9 Code: 06730-8 Heart Rate 1: 57 bpm Height: 5' SpO2: 99% Weight: 148 lbs 01/27/2018 Blood Pressure 1: 142/70 Code: 8480-6 BMI: 29.5 Code: 96750-3 Heart Rate 1: 61 bpm Height: 5' SpO2: 99% Weight: 151 lbs 11/25/2017 Blood Pressure 1: 148/72 Code: 8480-6 BMI: 30.9 Code: 89556-8 Heart Rate 1: 62 bpm Height: 5' SpO2: 98% Weight: 158 lbs 10/26/2017 Blood Pressure 1: 156/74 Code: 8480-6 BMI: 31.2 Code: 22013-2 Heart Rate 1: 71 bpm Height: 5' SpO2: 98% Weight: 160 lbs 10/11/2017 Blood Pressure 1: 128/70 Code: 8480-6 BMI: 30.9 Code: 47197-8 Heart Rate 1: 70 bpm Height: 5' SpO2: 95% Weight: 158 lbs 09/22/2017 Blood Pressure 1: 110/52 Code: 8480-6 BMI: 30.9 Code: 79685-7 Heart Rate 1: 72 bpm Height: 5' SpO2: 99% Weight: 158 lbs 07/06/2017 Blood Pressure 1: 120/85 Code: 8480-6 BMI: 31.4 Code: 65037-2 Heart Rate 1: 74 bpm Height: 5' SpO2: 92% Weight: 161 lbs 06/03/2017 Blood Pressure 1: 120/62 Code: 8480-6 BMI: 31.1 Code: 78681-5 Heart Rate 1: 73 bpm Height: 5' SpO2: 99% Weight: 159 lbs 05/12/2017 Blood Pressure 1: 132/68 Code: 8480-6 BMI: 32.4 Code: 96150-7 Heart Rate 1: 95 bpm Height: 5' SpO2: 97% Weight: 166 lbs 04/15/2017 Blood Pressure 1: 128/84 Code: 8480-6 BMI: 32.4 Code: 40368-4 Heart Rate 1: 62 bpm Height: 5' SpO2: 97% Weight: 166 lbs 03/19/2017 Blood Pressure 1: 112/60 Code: 8480-6 BMI: 32.0 Code: 74304-3 Height: 5' Weight: 164 lbs 02/03/2017 Blood Pressure 1: 128/76 Code: 8480-6 BMI: 33.4 Code: 90708-0 Heart Rate 1: 91 bpm Height: 5' SpO2: 99% Weight: 171 lbs 01/07/2017 Blood Pressure 1: 126/74 Code: 8480-6 BMI: 34.2 Code: 23716-7 Heart Rate 1: 83 bpm Height: 5' SpO2: 97% Weight: 175 lbs 12/17/2016 Blood Pressure 1: 122/72 Code: 8480-6 BMI: 34.0 Code: 97705-0 Heart Rate 1: 78 bpm Height: 5' SpO2: 97% Weight: 174 lbs 09/14/2016 Blood Pressure 1: 128/86 Code: 8480-6 BMI: 33.8 Code: 48513-4 Heart Rate 1: 88 bpm Height: 5' SpO2: 96% Weight: 173 lbs 06/18/2016 Blood Pressure 1: 122/74 Code: 8480-6 BMI: 34.8 Code: 96863-1 Heart Rate 1: 78 bpm Height: 5' SpO2: 98% Weight: 178 lbs 04/16/2016 Blood Pressure 1: 134/68 Code: 8480-6 BMI: 35.0 Code: 95601-7 Heart Rate 1: 67 bpm Height: 5' SpO2: 97% Weight: 179 lbs 03/19/2016 Blood Pressure 1: 132/74 Code: 8480-6 BMI: 34.6 Code: 11129-9 Heart Rate 1: 74 bpm Height: 5' SpO2: 97% Weight: 177 lbs 11/14/2015 Blood Pressure 1: 132/70 Code: 8480-6 BMI: 35.2 Code: 60773-0 Heart Rate 1: 68 bpm Height: 5' Weight: 180 lbs 08/14/2015 Blood Pressure 1: 122/74 Code: 8480-6 BMI: 33.8 Code: 84758-4 Heart Rate 1: 73 bpm Height: 5' SpO2: 93% Weight: 173 lbs 07/17/2015 Blood Pressure 1: 138/78 Code: 8480-6 BMI: 34.0 Code: 61856-4 Heart Rate 1: 85 bpm Height: 5' SpO2: 97% Weight: 174 lbs 03/25/2015 Blood Pressure 1: 130/78 Code: 8480-6 BMI: 33.2 Code: 22226-9 Heart Rate 1: 77 bpm Height: 5' SpO2: 97% Weight: 170 lbs 12/04/2014 Blood Pressure 1: 120/74 Code: 8480-6 BMI: 35.4 Code: 00722-5 Heart Rate 1: 67 bpm Height: 5' SpO2: 94% Weight: 181 lbs 5 oz 08/14/2014 Blood Pressure 1: 132/68 Code: 8480-6 BMI: 32.1 Code: 72051-7 Heart Rate 1: 62 bpm Height: 5'3" [...] nausea 01/27/2018 when she came home from [facility] hypertension Blood Pressure Values not checking [...] Encounters Encounter Performer Loca tion Codes Date 10156 EST. PATIENT, LEVEL III Diagnosis: Right upper quadrant pain[ICD10: R10.11] Gardenia Nicole MD, [facility] CPT-4: 62954 04/27/2018 [id number]) 32994 EST. P ATIENT, LEVEL IV Diagnosis: Essential (primary) hypertension[ICD10: I10] Diagnosis: Right upper quadrant pain[ICD10: R10.11] Mila Nicole MD, [facility] CPT-4: 02877 03/28/2018 [id number]) 26145 EST. P ATIENT, LEVEL IV Diagnosis: Low back pain[ICD10: M54.5] Diagnosis: Dysuria[ICD10: R30.0] Diagnosis: Type 2 diabetes mellitus with hyperglycemia[ICD10: E11.65] Claudia Nicole MD, [facility] CPT-4: 11545 02/24/2018 [id number]) 38043 EST. 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 P ATIENT, LEVEL IV Diagnosis: Type 2 diabetes mellitus with hyperglycemia[ICD10: E11.65] Diagnosis: Essential (primary) hypertension[ICD10: I10] Diagnosis: Encounter for immunization[ICD10: Z23] Diagnosis: Carpal tunnel syndrome, left upper limb[ICD10: G56.02] Claudia Nicole MD, [facility] CPT-4: 84369 11/25/2017 ([id number]) 04028 EST. P ATIENT, LEVEL III Diagnosis: Type 2 diabetes mellitus with hyperglycemia[ICD10: E11.65] Claudia Nicole MD, [facility] CPT-4: 91002 10/26/2017 ([id number]) Miscellaneou s no charge Diagnosis: Type 2 diabetes mellitus with hyperglycemia[ICD10: E11.65] Claudia Nicole MD, [facility] CPT-4: 81724 10/18/2017 ([id number]) 55289 EST. P ATIENT, LEVEL IV Diagnosis: Type 2 diabetes mellitus with diabetic autonomic (poly)neuropathy[ICD10: E11.43] Diagnosis: Essential (primary) hypertension[ICD10: I10] Mila Nicole MD, [facility] CPT-4: 00818 09/22/2017 ([id number]) 12882 EST. P ATIENT, LEVEL IV Diagnosis: Type 2 diabetes mellitus with hyperglycemia[ICD10: E11.65] Diagnosis: Paroxysmal atrial fibrillation[ICD10: I48.0] Diagnosis: Essential (primary) hypertension[ICD10: I10] Mila Nicole MD, [facility] CPT-4: 39880 07/06/2017 ([id number]) 61773 EST. P ATIENT, LEVEL IV Diagnosis: Essential (primary) hypertension[ICD10: I10] Diagnosis: Type 2 diabetes mellitus with hyperglycemia[ICD10: E11.65] Diagnosis: Paroxysmal atrial fibrillation[ICD10: I48.0] Claudia Nicole MD, [facility] CPT-4: 42606 06/03/2017 06171 EST. PATIENT, LEVEL III Diagnosis: Generalized anxiety disorder[ICD10: F41.1] Diagnosis: Major depressive disorder, recurrent, moderate[ICD10: F33.1] Diagnosis: Paroxysmal tachycardia, unspecified[ICD10: I47.9] Gardenia Nicole MD, [facility] CPT-4: 82741 05/12/2017 ([id number]) 71174 EST. P ATIENT, LEVEL IV Diagnosis: Essential (primary) hypertension[ICD10: I10] Diagnosis: Cough[ICD10: R05] Diagnosis: Dysuria[ICD10: R30.0] Mila Nicole MD, [facility] CPT-4: 21971 04/15/2017 ([id number]) 00649 EST. P ATIENT, LEVEL IV Diagnosis: Type 2 diabetes mellitus with hyperglycemia[ICD10: E11.65] Diagnosis: Essential (primary) hypertension[ICD10: I10] Mila Nicole MD, [facility] CPT-4: 93480 03/19/2017 ([id number]) 77251 EST. P ATIENT, LEVEL III Diagnosis: Type 2 diabetes mellitus with hyperglycemia[ICD10: E11.65] Mila Nicole MD, [facility] CPT-4: 25393 02/03/2017 68260 EST. PATIENT, LEVEL IV Diagnosis: Generalized anxiety disorder[ICD10: F41.1] Diagnosis: Type 2 diabetes mellitus with hyperglycemia[ICD10: E11.65] Diagnosis: Essential (primary) hypertension[ICD10: I10] Gardenia Nicole MD, [facility] CPT-4: 04439 01/07/2017 ([id number]) 96658 EST. P ATIENT, LEVEL III Diagnosis: Type 2 diabetes mellitus with hyperglycemia[ICD10: E11.65] Diagnosis: Encounter for immunization[ICD10: Z23] Mila Niocle MD, [facility] CPT-4: 68087 12/17/2016 ([id number]) 63404 EST. P ATIENT, LEVEL IV Diagnosis: Type 2 diabetes mellitus with hyperglycemia[ICD10: E11.65] Diagnosis: Essential (primary) hypertension[ICD10: I10] Diagnosis: Major depressive disorder, recurrent, mild[ICD10: F33.0] Mila Nicole MD, [facility] CPT-4: 78315 09/14/2016 ([id number]) 73627 EST. 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 P ATIENT, LEVEL IV Diagnosis: Type 2 diabetes mellitus with hyperglycemia[ICD10: E11.65] Diagnosis: Essential (primary) hypertension[ICD10: I10] Mila Nicole MD, [facility] CPT-4: 62147 04/16/2016 ([id number]) 19392 EST. 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 P ATIENT, LEVEL IV Diagnosis: Type 2 diabetes mellitus with hyperglycemia[ICD10: E11.65] Diagnosis: Encounter for immunization[ICD10: Z23] Diagnosis: Essential (primary) hypertension[ICD10: I10] Mila Nicole MD, [facility] CPT-4: 02493 11/14/2015 ([id number]) 60279 EST. P ATIENT, LEVEL IV Diagnosis: Type 2 diabetes mellitus with hyperglycemia[ICD10: E11.65] Diagnosis: Essential (primary) hypertension[ICD10: I10] Diagnosis: Low back pain[ICD10: M54.5] Mila Nicole MD, [facility] CPT-4: 50552 08/14/2015 ([id number]) 59189 EST. P ATIENT, LEVEL IV Diagnosis: Type 2 diabetes mellitus with hyperglycemia[ICD10: E11.65] Diagnosis: Essential (primary) hypertension[ICD10: I10] Diagnosis: Hypothyroidism, unspecified[ICD10: E03.9] Mila Nicole MD, C CPT-4: 82179 07/17/2015 ([id number]) 48733 EST. P ATIENT, LEVEL IV Diagnosis: Essential (primary) hypertension[ICD10: I10] Diagnosis: Type 2 diabetes mellitus with hyperglycemia[ICD10: E11.65] Diagnosis: Headache[ICD10: R51] Gardenia Nicole MD, [facility] CPT-4: 83288 03/25/2015 ([id number]) 87799 EST. P ATIENT, LEVEL IV Diagnosis: ESSENTIAL HYPERTENSION[ICD9: 401.9] Diagnosis: DIABETES TYPE II[ICD9: 250.00] Diagnosis: Aortic stenosis[ICD9: 424.1] Mila Nicole MD, [facility] CPT-4: 40537 12/04/2014 ([id number]) OFFICE VISI T, NEW - LEVEL 4 Diagnosis: ESSENTIAL HYPERTENSION[ICD9: 401.9] Diagnosis: Diabetes mellitus out of control[ICD9: 250.02] Mila Nicole MD, [facility] CPT-4: 72644 08/14/2014 Plan of Care Planned Activity Notes C odes Status Date Appointment: Lab Draw 04/28/2018 Patient Education: Patient [...] or concerns. 04/27/2018 Appointment: [facility]: [facility] [place] (10 min) Simple 04/27/2018 Patient Education: Patient Medication Summary Completed 04/27/2018 App[facility]ment[phone] [facility] [place] (15 min) Moderate 04/05/2018 Visit Plan: [...] regimen. 03/28/2018 Appointment: [phone] [facility] [place] (15 min) Moderate 03/28/2018 Patient Education: Patient Medication Summary Completed 03/28/2018 Patient Education: Hypertension Completed 03/28/2018 Care Plan: ECHO EXAM OF ABDOMEN Pending 03/28/2018 Visit Plan: Low back pain-xray lumb ar spine Dysuria- improved-will culture urine [id number] changes today 02/24/2018 Appointment: [facility] [phone] [phone] [place] (15 min) Moderate 02/24/2018 Patient [...] Pruitt WPtel: [phone] [place] [address] (15 min) Moderate 01/27/2018 Patient Education: Patient [...] any worse 11/25/2017 Appointment: Claudia Pruitt WPtel: [phone] (15 min) Moderate 11/25/2017 Patient Education: Patient Medication Summary Completed 11/25/2017 Appointment: Mila Nicole WPtel: [facility] (15 min) Moderate 10/28/2017 Visit Plan: Diabetes [...] to appt. 10/26/2017 Appointment: Claud[facility] P[facility]itt [facility]el[facility] [phone] [phone] (15 min) Moderate 10/26/2017 Patient Education: [...] plan. 10/11/2017 Appointment: [facility] [phone] [phone] (30 min) Complex 10/11/2017 Patient Education: [...] Completed 09/22/2017 Appointment: Mila Nicole WPtel: [phone] [facility] (15 min) Moderate 09/13/2017 Appointment: Mila Nicole WPtel: [phone] [facility] (15 min) Moderate 09/07/2017 Visit [...] uncontrolled. 07/06/2017 Appointment: Mila Nicole WPtel: [phone] [facility] (15 min) Moderate 07/06/2017 Patient Education: Patient Medication Summary Completed 07/06/2017 Appointment: Mila Nicole WPtel: [phone] [facility] (15 min) Moderate 06/07/2017 Visit [...] controlled. 06/03/2017 Appointment: Claudia Pruitt WPtel: [phone] [phone] (30 min) Complex 06/03/2017 Patient Education: [...] plan 05/12/2017 Appointment: [facility] [phone] [facility] (30 min) Complex 05/12/2017 Patient Education: [...] change the Entresto medication. 04/15/2017 Appointment: Mila Nicoel WPtel: [phone] [facility] (15 min) Moderate 04/15/2017 Patient Education: Patient [...] daily. 03/19/2017 Appointment: Mila Nicole WPtel: [phone] [facility] (15 min) Moderate 03/19/2017 Patient Education: Patient Medication Summary Completed 03/19/2017 Appointment: Mila Nicole WPtel: [facility] (15 min) Moderate 02/24/2017 Visit Plan: Diabetes [...] lantus 10 units at HS 02/03/2017 Appointment: [facility]aely [phone] [facility] (15 min) Moderate 02/03/2017 Patient Education: Patient [...] concerns. 01/07/2017 Appointment: [facility] [phone] [facility] (30 min) Complex 01/07/2017 Patient Education: [...] to allow for greater blood glucose control. [id number], 02/2018 junior nordisk 12/17/2016 Appointment: Mila Nicole WPtel: [phone] [facility] (15 min) Moderate 12/17/2016 Patient Education: Patient Medication Summary Completed 12/17/2016 Patient Education: Obesity Completed 12/17/2016 Appointment: Michael Nicoley WPtel: [phone] [facility] (15 min) Moderate 12/14/2016 Visit [...] medications. 09/14/2016 Appointment: Mila Nicole WPtel: [phone] [facility] (15 min) Moderate 09/14/2016 Patient [...] home. 06/18/2016 App[facility]ment: [phone] (15 min) Moderate 06/18/2016 Patient Education: Patient [...] home. 04/16/2016 Appointment: [facility] [phone] [facility] (15 min) Moderate 04/16/2016 Patient Education: Patient [...] 03/19/2016 Appointment: [phone] [facility] (15 min) Moderate 03/19/2016 Patient Education: Patient [...] home. 11/14/2015 Appointment: [facility] [phone] [facility] (15 min) Moderate 11/14/2015 Patient Education: Patient [...] Hgba1c 07/17/2015 Appointment: [facility] [phone] [facility] (15 min) Moderate 07/17/2015 Patient Education: Patient [...] Hypertension Completed 03/25/2015 Appointment: Mila Nicole WPtel: [phone] [facility] (15 min) Moderate 01/14/2015 Visit Plan: Diabetes Mellitus - con giseled [...] of control. 12/04/2014 Appointment: [phone] [facility] (15 min) Moderate 12/04/2014 Patient Education: Patient [...] glucose control. 08/14/2014 Appointment: Mila Nicole WPtel: [address] [place], [place] [address] [place] ([place]) New Patient 08/14/2014 Patient Education: Patient Medication Summary Completed 08/14/2014 Patient Education: Hypertension Completed 08/14/2014 Instructions Comment Decrease victoza walter k to your previous [...] Diabetes Mellitus - controlled - per r ent FSBS reports. I have recommended for the [...] pain-xray lumbar spine Dysuria- improved-will culture urine [id number] changes today cut back on carbohyd rates in food [...] to allow for greater blood glucose control. [id number], 02/2018 junior nordisk I think the entresto [...]
--- OUTSIDE RECORDS SUMMARY | 2019-03-16 19:29 | XMS REPORT | CCD ---
Author Author Melinda Nicole Organization Mila Nicole MD, [facility] Address [address] [place] [address] Phone Care Team Providers Care Editorial Manager Name Role Phone PP Unavailable CCM Unavailable Summary Purpose Interface Exchange Insurance Providers Payer name Policy type / Coverage type Covered libertarian ID Effective Begin Date Effective End Date WPS Medicare Part B Medicare Part B [id number] Unknown AARP Medicare Part B [id number] Unknown Family history Mother Diagnosis Age At [...] Unknown 3 08/14/[address]: 466175446 Never smoker 08/14/[address]: 141865298 Never drinks alcohol 08/14/2014 Allergies, Adverse Reactions, Alerts Substance Reaction Codes Entered Date Inactivated Date Status * OTHER REACTION - S EE ANSWER BOX Invokana, Victoza Unknown 03/19/2017 No Inactive Date Active Paxil has blurred vision RxNorm: 193785 08/14/2014 No Inactive Date Active Lipitor RxNorm: 50428 08/14/2014 No Inactive Date Active Past Medical [...] Insulin 100 unit/mL (3 mL) subcutaneous RxNorm: 5059198 INJECT 20 UNITS UNDER THE SKIN ONCE DAILY 05/25/2018 11/20/2018 Active digoxin 250 mcg tablet RxNorm: 493358 0.25 MG PO DAILY 05/13/2018 No Stop Date Active Flagyl 500 mg tablet RxNorm: 826024 1 Tablet(s) PO TID 05/05/2018 05/14/2018 Inactive Flagyl 500 mg tablet RxNorm: 795210 1 Tablet(s) PO TID 05/05/2018 05/04/2018 Inactive Zetia 10 mg tablet RxNorm: 073374 1 Tablet(s) PO daily 03/28/2018 03/22/2019 Active tramadol 50 mg tablet RxNorm: 707178 1 Tablet(s) PO TID as needed 03/25/2018 No Stop Date Active fluticasone 50 mcg/a ctuation nasal spray,suspension RxNorm: 0200084 INSTILL ONE SPRAY IN EACH NOSTRILTWICE A DAY 03/16/2018 10/11/2018 Active Generic For:FLONASE SPR 0.05% 03/16/2018 8:50:59 AM Keflex 500 mg capsule RxNorm: 948280 1 Capsule(s) PO TID 02/11/2018 02/10/2018 Inactive Keflex 500 mg capsule RxNorm: 954838 1 Capsule(s) PO TID 02/11/2018 02/20/2018 Inactive metoprolol succinate ER 200 mg tablet,extended release 24 hr RxNorm: 139564 1 Tablet(s) PO daily 01/27/2018 No Stop Date Active Eliquis 2.5 mg tablet RxNorm: 1699084 1 Tablet(s) PO BID 01/27/2018 No Stop Date Active digoxin 125 mcg tablet RxNorm: 383919 1 Tablet(s) PO daily 01/27/2018 No Stop Date Active Basaglar KwikPen U-1 00 Insulin 100 unit/mL (3 mL) subcutaneous RxNorm: 5295639 20 Unit(s) SQ daily 11/25/2017 05/23/2018 Inactive UPDATE RX metformin 500 mg tablet RxNorm: 736709 1 Tablet(s) PO UD 1.5 in morning, noon a nd 1 at bedtime 10/28/2017 10/22/2018 Active Basaglar KwikPen U-1 00 Insulin 100 unit/mL (3 mL) subcutaneous RxNorm: 9775038 18 Unit(s) SQ daily 10/26/2017 11/24/2017 Inactive UPDATE RX levothyroxine 50 mcg tablet RxNorm: 823651 TAKE 1 TABLET BY MOUT H ONCE DAILY 10/15/2017 06/11/2018 Ac tive Generic For:SYNTHROID 50MCG TAB 018 9:59:00 AM escitalopram 10 mg t ablet RxNorm: 753167 1 Tablet(s) PO QPM 09/22/2017 09/16/2018 Active Generic For:LEXAPRO 5MG 01/07/2017 9:05 :43 AM Basaglar KwikPen U-1 00 Insulin 100 unit/mL (3 mL) subcutaneous RxNorm: 3180358 15 Unit(s) SQ daily 09/22/2017 10/25/2017 Inactive potassium chloride E R 20 mEq tablet,extended release RxNorm: 372723 1 Tablet(s) PO daily 06/22/2017 01/17/2018 Inactive Lantus Solostar U-10 0 Insulin 100 unit/mL (3 mL) subcutaneous pen RxNorm: 848231 10 Unit(s) SQ daily 06/08/2017 06/08/2017 Inactive Basaglar KwikPen U-1 00 Insulin 100 unit/mL (3 mL) subcutaneous RxNorm: 0316115 10 Unit(s) SQ daily 06/08/2017 06/07/2017 Inactive Basaglar KwikPen U-1 00 Insulin 100 unit/mL (3 mL) subcutaneous RxNorm: 8456327 10 Unit(s) SQ daily 06/08/2017 09/21/2017 Inactive Lexapro 5 mg tablet RxNorm: 083630 1 Tablet(s) PO daily 06/01/2017 11/27/2017 Inactive Lexapro 5 mg tablet RxNorm: 980147 1 Tablet(s) PO daily 05/12/2017 05/31/2017 Inactive bisoprolol 5 mg-hydr ochlorothiazide 6.25 mg tablet RxNorm: 321106 1 Tablet(s) PO BID 05/04/2017 06/02/2017 Inactive Keflex 500 mg capsule RxNorm: 734441 1 Capsule(s) PO QID 04/15/2017 04/21/2017 Inactive Lantus Solostar 100 unit/mL (3 mL) subcutaneous insulin pen RxNorm: 248199 10 Unit(s) SQ daily 02/03/2017 06/07/2017 Inactive levothyroxine 50 mcg tablet RxNorm: 054958 TAKE 1 TABLET BY MOUT H ONCE DAILY 02/01/2017 09/28/2017 In active Generic For:SYNTHROID 50MCG TAB 017 9:20:59 AM gabapentin 600 mg ta blet RxNorm: 488556 1 Capsule(s) PO TID 01/27/2017 01/21/2018 Inactive Lexapro 5 mg tablet RxNorm: 942090 TAKE 1 TABLET BY MOUTH AT BEDTIME 01/07/2017 09/21/2017 In active Generic For:LEXAPRO 5MG 01/07/2017 9:05 :43 AM Victoza 2-Dariusz 0.6 mg /0.1 mL (18 mg/3 mL) subcutaneous pen injector RxNorm: 589139 1.8 Milligram(s) SQ daily 12/17/2016 02/07/2017 Inactive Victoza 3-Dariusz 0.6 mg /0.1 mL (18 mg/3 mL) subcutaneous pen injector RxNorm: 285586 Milligram(s) SQ 12/17/2016 02/07/2017 Inactive Zetia 10 mg tablet RxNorm: 212017 1 Tablet(s) PO daily 11/17/2016 11/11/2017 Inactive fluticasone 50 mcg/a ctuation nasal spray,suspension RxNorm: 2496012 [place] NASAL ONE SPRAY IN EACH NOSTRIL TWICE DAILY 09/28/2016 04/25/2017 Inactive Victoza 2-Dariusz 0.6 mg /0.1 mL (18 mg/3 mL) subcutaneous pen injector RxNorm: 405338 1.2 Milligram(s) SQ daily 09/14/2016 12/16/2016 Inactive Lexapro 5 mg tablet RxNorm: 381768 1 Tablet(s) PO QHS 09/14/2016 12/12/2016 Inactive metformin 500 mg tablet RxNorm: 594802 1 Tablet(s) PO UD 1.5 in morning, noon a nd 1 at bedtime 09/08/2016 09/02/2017 Inactive glimepiride 4 mg tablet RxNorm: 394158 TAKE 1 TABLET BY MOUTH ONCE DAILY 07/31/2016 09/13/2016 In active Generic For:*AMARYL 4MG 07/31/2016 9:02 :38 AM Victoza 2-Dariusz 0.6 mg /0.1 mL (18 mg/3 mL) subcutaneous pen injector RxNorm: 748145 1.2 Milligram(s) SQ daily 05/18/2016 09/13/2016 Inactive Victoza 2-Dariusz 0.6 mg /0.1 mL (18 mg/3 mL) subcutaneous pen injector RxNorm: 020178 1.2 Milligram(s) SQ daily 04/16/2016 05/17/2016 Inactive levothyroxine 50 mcg tablet RxNorm: 008982 TAKE 1 TABLET BY MOUT H ONCE DAILY 04/08/2016 12/03/2016 In active Generic For:SYNTHROID 50MCG TAB 017 9:05:40 AM levothyroxine 50 mcg tablet RxNorm: 093543 1 Tablet(s) PO daily TAKE 1 TABLET BY MOUTH ONCE DAILY 04/08/2016 12/03/2016 Inactive Generic For:SYNTHROID 50MCG TAB N O T I C E PRESCRIPTION PREVIOUSLY AUTHORIZED BY DOCTOR:HENRY BAIG bisoprolol 5 mg-hydr ochlorothiazide 6.25 mg tablet RxNorm: 387319 1 Tablet(s) PO BID 03/23/2016 03/17/2017 Inactive Victoza 2-Dariusz 0.6 mg /0.1 mL (18 mg/3 mL) subcutaneous pen injector RxNorm: 790692 0.6 Milligram(s) SQ daily 03/19/2016 04/15/2016 Inactive Lexapro 5 mg tablet RxNorm: 500687 1 Tablet(s) PO QHS 03/19/2016 06/16/2016 Inactive gabapentin 600 mg ta blet RxNorm: 733870 1 Capsule(s) PO TID 03/19/2016 01/26/2017 Inactive glimepiride 4 mg tablet RxNorm: 837596 1 Tablet(s) PO daily 12/09/2015 06/05/2016 Inactive Victoza 3-Dariusz 0.6 mg /0.1 mL (18 mg/3 mL) subcutaneous pen injector RxNorm: 671378 0.6 Milligram(s) SQ daily x2 weeks, then 1.2 mg SQ daily 12/02/2015 03/18/2016 Inactive metformin 500 mg tablet RxNorm: 591751 1 Tablet(s) PO UD 1.5 in morning, noon a nd 1 at bedtime 08/14/2015 08/07/2016 Inactive gabapentin 600 mg ta blet RxNorm: 573002 1 Capsule(s) PO TID S HE IS ONLY TAKING 1 QD 08/14/2015 03/18/2016 In active fluticasone 50 mcg/a ctuation nasal spray,suspension RxNorm: 257698 [place] NASAL ONE SPRAY IN EACH NOSTRIL TWICE DAILY 07/26/2015 07/25/2015 Inactive fluticasone 50 mcg/a ctuation nasal spray,suspension RxNorm: 2839298 [place] NASAL ONE SPRAY IN EACH NOSTRIL TWICE DAILY 07/26/2015 02/20/2016 Inactive bisoprolol 5 mg-hydr ochlorothiazide 6.25 mg tablet RxNorm: 165955 1 Tablet(s) PO daily 1 Tablet(s) PO BID 07/17/2015 01/12/2016 Inactive metformin 500 mg tablet RxNorm: 212117 1 Tablet(s) PO TID 1 Tablet(s) PO TID 07/17/2015 08/13/2015 In active Diflucan 100 mg tablet RxNorm: 840549 1 Tablet(s) PO daily 07/17/2015 07/21/2015 Inactive Zetia 10 mg tablet RxNorm: 620225 1 Tablet(s) PO daily 06/10/2015 06/03/2016 Inactive bisoprolol 5 mg-hydr ochlorothiazide 6.25 mg tablet RxNorm: 204660 1 Tablet(s) PO BID 04/18/2015 07/16/2015 Inactive metformin 500 mg tablet RxNorm: 043154 1 Tablet(s) PO TID 03/01/2015 06/28/2015 Inactive glimepiride 4 mg tablet RxNorm: 112329 1 Tablet(s) PO daily 01/31/2015 01/30/2015 Inactive levothyroxine 50 mcg tablet RxNorm: 096184 TAKE 1 TABLET BY MOUT H ONCE DAILY 01/31/2015 09/27/2015 In active Generic For:SYNTHROID 50MCG TAB N O T I C E PRESCRIPTION PREVIOUSLY AUTHORIZED BY DOCTOR:HENRY BAIG glimepiride 4 mg tablet RxNorm: 377188 1 Tablet(s) PO daily 01/31/2015 07/29/2015 Inactive Invokana 100 mg tablet RxNorm: 2583562 1 Tablet(s) PO daily 12/12/2014 07/16/2015 Inactive bisoprolol 5 mg-hydr ochlorothiazide 6.25 mg tablet RxNorm: 419769 1 Tablet(s) PO BID 08/27/2014 02/22/2015 Inactive metformin 500 mg tablet RxNorm: 637021 1 Tablet(s) PO TID 08/10/2014 12/07/2014 Inactive metformin 500 mg tablet RxNorm: 407645 1 Tablet(s) PO TID 08/10/2014 08/09/2014 Inactive Fish Oil 1,000 mg ca psule RxNorm: 1 Capsule(s) PO daily No Start Date Active Protonix 40 mg table t,delayed release RxNorm: 498701 1 Tablet(s) PO QAM No Start Date Active furosemide 40 mg tablet RxNorm: 301121 1 Tablet(s) PO daily No Start Date Active pen needle, diabetic 31 gauge x 1/6" RxNorm: Miscellaneous N o Start Date Active Elavil 25 mg tablet RxNorm: 023897 1 Tablet(s) PO QPM No Start Date Active nitroglycerin 0.4 mg sublingual tablet RxNorm: 977178 1 Tablet(s) SL as nee ded chest pain No Start Date Active amlodipine 5 mg tablet RxNorm: 895851 1 Tablet(s) PO daily No Start Date Active Entresto 24 mg-26 mg tablet RxNorm: 4448217 1 Tablet(s) PO BID No Start Date Active aspirin 81 mg chewab le tablet RxNorm: 837323 1 Tablet(s) PO daily No Start Date 06/02/2017 Inactive Eliquis 5 mg tablet RxNorm: 9838218 1 Tablet(s) PO BID No Start Date 01/26/2018 Inactive bisoprolol-hydrochlo rothiazide oral RxNorm: [address] art Date 08/26/2014 Inactive levothyroxine 50 mcg tablet RxNorm: 503711 1 Tablet(s) PO daily No Start Date 01/30/2015 Inactive potassium chloride E R 20 mEq tablet,extended release RxNorm: 164204 1 Tablet(s) PO daily No Start Date 06/21/2017 Inactive digoxin 250 mcg tablet RxNorm: 788036 1 Tablet(s) PO daily No Start Date 01/26/2018 Inactive Invokana 100 mg tablet RxNorm: 2901226 1 Tablet(s) PO daily No Start Date 12/11/2014 Inactive tramadol 50 mg tablet RxNorm: 262273 1 Tablet(s) PO TID as needed No Start Date 03/22/2018 Inactive Victoza 3-Dariusz 0.6 mg /0.1 mL (18 mg/3 mL) subcutaneous pen injector RxNorm: 417079 0.6 Milligram(s) SQ daily x2 weeks, then 1.2 mg SQ daily No Start Date 12/01/2015 Inactive Effient 10 mg tablet RxNorm: 699462 1 Tablet(s) PO QAM No Start Date 01/26/2018 Inactive Zetia 10 mg tablet RxNorm: 373083 1 Tablet(s) PO BID No Start Date 03/18/2016 Inactive metoprolol succinate ER 100 mg tablet,extended release 24 hr RxNorm: 575789 1 Tablet(s) PO daily No Start Date 01/26/2018 Inactive gabapentin 300 mg ca psule RxNorm: 730005 1 Capsule(s) PO BID No Start Date 08/13/2015 Inactive Lasix 40 mg tablet RxNorm: 263785 1 Tablet(s) PO BID No Start Date 04/14/2017 Inactive Coreg 3.125 mg tablet RxNorm: 256661 1 Tablet(s) PO BID with meals No [...] 04/15/2017 stress test and then shipped to [facility] Follow Up 03/19/2017 stress test and then shipped to [facility] diabetes mellitus 02/03/2017 headache 01/07/2017 diabetes mellitus 12/17/2016 diabetes mellitus 09/14/2016 diabetes mellitus 06/18/2016 medication follow up 04/16/2016 back pain 03/19/2016 back pain 11/14/2015 back pain 08/14/2015 diabetes mellitus 07/17/2015 Hospital Follow Up 03/25/2015 diabetes mellitus 12/04/2014 diabetes mellitus 08/14/2014 Results Observation Observation Code Item Item Code Result Date Culture Urine [id number] URI NE CULTURE SEE NOTES 02/28/2018 Urine [...] 28.8 pg 02/24/2018 Cbc With Differential Ord2 [place]% 5.7 % 02/24/2018 Cbc With Differential Ord2 [...] 1.57 K/ul 02/24/2018 Cbc With Differential Ord2 [place] ABS# 0.4 K/ul 02/24/2018 Cbc With Differential Ord2 Eos ABS# 0.1 K/ul 02/24/2018 Cbc With Differential Ord2 Baso ABS# 0.0 K/ul 02/24/2018 Comp Metabolic Dcu738 NA 138 mEq/L 02/24/2018 Comp Metabolic Csv138 K 4.4 mEq/L 02/24/2018 Comp Metabolic Ncp383 CL 100 mEq/L 02/24/2018 Comp Metabolic Pig331 CO2 27.0 mEq/L 02/24/2018 Comp Metabolic Uak735 AN ION GAP 15 02/24/2018 Comp Metabolic Zhs204 GL UCOSE 98 mg/dL 02/24/2018 Comp Metabolic Euu324 Cr eat 1.0 mg/dL 02/24/2018 Comp Metabolic Gex602 eG FR 55 ml/min/1.73m2 02/24 Comp Metabolic Nye673 BUN 25 mg/dL 02/24/2018 Comp Metabolic Akh354 B/ C Ratio 24.3 Ratio 02/24/2018 Comp Metabolic Hkz496 CA LCIUM 9.4 mg/dL 02/24/2018 Comp Metabolic Hzm248 AL K PHOS 46 U/L 02/24/2018 Comp Metabolic Ore866 T(SGOT) 13 U/L 02/24/2018 Comp Metabolic Qlm688 AL T(SGPT) 12 U/L 02/24/2018 Comp Metabolic Vkx112 BI LI T 0.4 mg/dL 02/24/2018 Comp Metabolic Vgw662 AL BUMIN 4.5 g/dL 02/24/2018 Comp Metabolic Mwt378 TP RO 6.6 g/dL 02/24/2018 Comp Metabolic Jsy834 GL OB 2.1 g/dL 02/24/2018 Comp Metabolic Lmg225 A/ G Ratio 2.1 Ratio 02/24/2018 Comp Metabolic Vhj402 Os mo 280 mOsmo 02/24/2018 Culture Urine [id number] URI NE CULTURE SEE NOTES 02/11/2018 Culture Urine [id number] Con tinued Results 02/11/2018 Urine Culture Ucult Comp lete >100,000 col/ml aerobic grow th sent to ref lab 02/08/2018 %Hba1C Sso440 % HbA1c 58359-4 6.8 % 01/12/2018 %Hba1C Cyu056 Gluc Ave 148 mg/dL 01/12/2018 Metabolic Ord15 [...] 28.6 pg 01/11/2018 Cbc With Differential Ord2 [place]% 7.8 % 01/11/2018 Cbc With Differential Ord2 [...] 1.70 K/ul 01/11/2018 Cbc With Differential Ord2 [place] ABS# 0.4 K/ul 01/11/2018 Cbc With Differential Ord2 Eos ABS# 0.1 K/ul 01/11/2018 Cbc With Differential Ord2 Baso ABS# 0.0 K/ul 01/11/2018 Magnesium Ord90 Mag 1.7 mg/dL 01/11/2018 Test(s) Not Perfromed [id number] Test(s) Not Performed Test(s) Not Performed. See Below: 09/20/2017 Test(s) Not Perfromed [id number] TEST NAME BNP 09/20/2017 Test(s) Not Perfromed [id number] Rejection Reason Patient Refused due to lack of coving diganosis 09/20/2017 Test(s) Not Perfromed [id number] COMMENT Dorita Notified 11/2017 Test(s) Not Perfromed [id number] [employer] Miguel Lissette 09/20/2017 B Type Natriuretic Peptide Eej1941 [employer] SUPER[employer] 889.00 pg/ml 8 Cbc With Differential Ord2 [...] 28.9 pg 09/20/2017 Cbc With Differential Ord2 [place]% 5.6 % 09/20/2017 Cbc With Differential Ord2 [...] 1.68 K/ul 09/20/2017 Cbc With Differential Ord2 [place] ABS# 0.3 K/ul 09/20/2017 Cbc With Differential Ord2 Eos ABS# 0.1 K/ul 09/20/2017 Cbc With Differential Ord2 Baso ABS# 0.0 K/ul 09/20/2017 %Hba1C Qja785 % HbA1c 73153-8 7.9 % 09/20/2017 %Hba1C Iss840 Gluc Ave 180 mg/dL 09/20/2017 Magnesium Ord90 [...] 28.3 pg 07/07/2017 Cbc With Differential Ord2 [place]% 7.9 % 07/07/2017 Cbc With Differential Ord2 [...] 1.34 K/ul 07/07/2017 Cbc With Differential Ord2 [place] ABS# 0.4 K/ul 07/07/2017 Cbc With Differential Ord2 Eos ABS# 0.1 K/ul 07/07/2017 Cbc With Differential Ord2 Baso ABS# 0.0 K/ul 07/07/2017 Comp Metabolic Udp641 NA 142 mEq/L 07/07/2017 Comp Metabolic Gqn714 K 4.3 mEq/L 07/07/2017 Comp Metabolic Hnk975 CL 105 mEq/L 07/07/2017 Comp Metabolic Gfx574 CO2 28.0 mEq/L 07/07/2017 Comp Metabolic Ifq086 AN ION GAP 13 07/07/2017 Comp Metabolic Bqe193 GL UCOSE 197 mg/dL 07/07/2017 Comp Metabolic Gzx088 Cr eat 1.1 mg/dL 07/07/2017 Comp Metabolic Gjy596 eG FR 51 ml/min/1.73m2 07/07 Comp Metabolic Fgz978 BUN 21 mg/dL 07/07/2017 Comp Metabolic Zrn699 B/ C Ratio 18.9 Ratio 07/07/2017 Comp Metabolic Fid933 CA LCIUM 8.9 mg/dL 07/07/2017 Comp Metabolic Jmd020 AL K PHOS 51 U/L 07/07/2017 Comp Metabolic Kyf342 T(SGOT) 11 U/L 07/07/2017 Comp Metabolic Bru811 AL T(SGPT) 11 U/L 07/07/2017 Comp Metabolic Uic494 BI LI T 0.3 mg/dL 07/07/2017 Comp Metabolic Jtc427 AL BUMIN 4.2 g/dL 07/07/2017 Comp Metabolic Jjt898 TP RO 6.0 g/dL 07/07/2017 Comp Metabolic Vym201 GL OB 1.8 g/dL 07/07/2017 Comp Metabolic Xia212 A/ G Ratio 2.3 Ratio 07/07/2017 Comp Metabolic Mco464 Os mo 292 mOsmo 07/07/2017 Digoxin Ord9 DIGOXIN 1.3 NG/ML 07/07/2017 Tsh Ord6 TSH (3rd IS) 2.19 uIU/mL 07/07/2017 B Type Natriuretic Peptide Bdl0667 [employer] SUPER[employer]OR 801.00 pg/ml 8 Culture Urine [id number] URI NE CULTURE SEE NOTES 04/19/2017 Culture Urine [id number] Con tinued Results 04/19/2017 Urine Culture Ucult Comp lete >100,000 col/ml aerobic grow th sent to ref lab 04/16/2017 Comp Metabolic Tnk342 NA 140 mEq/L 01/26/2017 Comp Metabolic Etl142 K 4.6 mEq/L 01/26/2017 Comp Metabolic Skx333 CL 102 mEq/L 01/26/2017 Comp Metabolic Kkb218 CO2 28.0 mEq/L 01/26/2017 Comp Metabolic Xig425 AN ION GAP 15 01/26/2017 Comp Metabolic Rgu039 GL UCOSE 173 mg/dL 01/26/2017 Comp Metabolic Dum958 Cr eat 1.0 mg/dL 01/26/2017 Comp Metabolic Ucu351 eG FR 56 ml/min/1.73m2 01/26 Comp Metabolic Kls749 BUN 23 mg/dL 01/26/2017 Comp Metabolic Hly317 B/ C Ratio 22.5 Ratio 01/26/2017 Comp Metabolic Cxw179 CA LCIUM 9.4 mg/dL 01/26/2017 Comp Metabolic Zgm268 AL K PHOS 52 U/L 01/26/2017 Comp Metabolic Qxr626 T(SGOT) 12 U/L 01/26/2017 Comp Metabolic Jhj867 AL T(SGPT) 12 U/L 01/26/2017 Comp Metabolic Flc191 BI LI T 0.5 mg/dL 01/26/2017 Comp Metabolic Igj883 AL BUMIN 4.4 g/dL 01/26/2017 Comp Metabolic Kic742 TP RO 6.5 g/dL 01/26/2017 Comp Metabolic Bzf911 GL OB 2.1 g/dL 01/26/2017 Comp Metabolic Kur197 A/ G Ratio 2.1 Ratio 01/26/2017 Comp Metabolic Wmv576 Os mo 287 mOsmo 01/26/2017 Cbc With [...] 29.2 pg 01/26/2017 Cbc With Differential Ord2 [place]% 4.9 % 01/26/2017 Cbc With Differential Ord2 [...] 1.75 K/ul 01/26/2017 Cbc With Differential Ord2 [place] ABS# 0.4 K/ul 01/26/2017 Cbc With Differential Ord2 Eos ABS# 0.1 K/ul 01/26/2017 Cbc With Differential Ord2 Baso ABS# 0.0 K/ul 01/26/2017 %Hba1C Dxv208 % HbA1c 87016-3 7.8 % 01/26/2017 %Hba1C Imw259 Gluc Ave 177 mg/dL 01/26/2017 Lipid Ord30 CHOL 239 mg/dL 01/26/2017 Lipid Ord30 HDL 40.0 mg/dl 01/26/2017 Lipid Ord30 TRIG 325 mg/dL 01/26/2017 Lipid Ord30 LDL 134 mg/dL 01/26/2017 Lipid Ord30 C/HDL 6.0 Ratio 01/26/2017 Free T4 Wdt865 FREE T4 0.95 ng/dL 01/26/2017 Tsh Ord6 [...] Metabolic Ord15 CALCIUM 9.0 mg/dL 09/08/2016 %Hba1C Snf077 % HbA1c 42248-9 7.5 % 09/08/2016 %Hba1C Ayy289 Gluc Ave 169 mg/dL 09/08/2016 Tsh Ord6 hTSH II 2.64 uIU/mL 03/13/2016 %Hba1C Lfz865 % HbA1c 71881-4 8.2 % 03/13/2016 %Hba1C Krv822 Gluc Ave 189 mg/dL 03/13/2016 Lipid Ord30 CHOL 233 mg/dL 03/13/2016 Lipid Ord30 HDL 46.0 mg/dl 03/13/2016 Lipid Ord30 TRIG 276 mg/dL 03/13/2016 Lipid Ord30 LDL 132 mg/dL 03/13/2016 Lipid Ord30 C/HDL 5.1 Ratio 03/13/2016 Free T4 Lud632 FREE T4 0.94 ng/dL 03/13/2016 Cbc With [...] 30.3 pg 03/13/2016 Cbc With Differential Ord2 [place]% 6.1 % 03/13/2016 Cbc With Differential Ord2 [...] 1.63 K/ul 03/13/2016 Cbc With Differential Ord2 [place] ABS# 0.3 K/ul 03/13/2016 Cbc With Differential Ord2 Eos ABS# 0.1 K/ul 03/13/2016 Cbc With Differential Ord2 Baso ABS# 0.0 K/ul 03/13/2016 Comp Metabolic Xca575 NA 139 mEq/L 03/13/2016 Comp Metabolic Wmj447 K 4.3 mEq/L 03/13/2016 Comp Metabolic Ibe223 CL 103 mEq/L 03/13/2016 Comp Metabolic Tyl311 CO2 28.0 mEq/L 03/13/2016 Comp Metabolic Tzy996 AN ION GAP 12 03/13/2016 Comp Metabolic Hio130 GL UCOSE 200 mg/dL 03/13/2016 Comp Metabolic Zlg048 Cr eat 0.9 mg/dL 03/13/2016 Comp Metabolic Var634 eG FR 69 ml/min/1.73m2 03/13 Comp Metabolic Lig308 BUN 19 mg/dL 03/13/2016 Comp Metabolic Ccq550 B/ C Ratio 22.4 Ratio 03/13/2016 Comp Metabolic Zox495 CA LCIUM 9.0 mg/dL 03/13/2016 Comp Metabolic Jyv850 AL K PHOS 57 U/L 03/13/2016 Comp Metabolic Kgb207 T(SGOT) 13 U/L 03/13/2016 Comp Metabolic Epr890 AL T(SGPT) 16 U/L 03/13/2016 Comp Metabolic Gpr842 BI LI T 0.4 mg/dL 03/13/2016 Comp Metabolic Gid056 AL BUMIN 4.2 g/dL 03/13/2016 Comp Metabolic Gwb740 TP RO 6.3 g/dL 03/13/2016 Comp Metabolic Nyo376 GL OB 2.1 g/dL 03/13/2016 Comp Metabolic Jih198 A/ G Ratio 2.0 Ratio 03/13/2016 Comp Metabolic Yzq148 Os mo 285 mOsmo 03/13/2016 %Hba1C Por008 % HbA1c 26622-1 8.3 % 11/14/2015 %Hba1C Uou788 Gluc Ave 192 mg/dL 11/14/2015 Lipid Ord30 CHOL 210 mg/dL 07/19/2015 Lipid Ord30 HDL 43.0 mg/dl 07/19/2015 Lipid Ord30 TRIG 311 mg/dL 07/19/2015 Lipid Ord30 LDL 105 mg/dL 07/19/2015 Lipid Ord30 C/HDL 4.9 Ratio 07/19/2015 %Hba1C Azb171 % HbA1c 15379-0 7.6 % 07/19/2015 %Hba1C Uey342 Gluc Ave 171 mg/dL 07/19/2015 Cbc With [...] 28.8 pg 07/19/2015 Cbc With Differential Ord2 [place]% 6.1 % 07/19/2015 Cbc With Differential Ord2 [...] 1.63 K/ul 07/19/2015 Cbc With Differential Ord2 [place] ABS# 0.3 K/ul 07/19/2015 Cbc With Differential Ord2 Eos ABS# 0.1 K/ul 07/19/2015 Cbc With Differential Ord2 Baso ABS# 0.0 K/ul 07/19/2015 Cbc With Differential Ord2 New Analyzer Notice Please note new ref ranges s tarting 03-27-2015 due to implemntation of new five part differential hematolgy analyzer. 07/19/2015 Comp Metabolic Ssy394 NA 138 mEq/L 07/19/2015 Comp Metabolic Fmf833 K 4.3 mEq/L 07/19/2015 Comp Metabolic Tfw110 CL 100 mEq/L 07/19/2015 Comp Metabolic Swx640 CO2 33.0 mEq/L 07/19/2015 Comp Metabolic Hmz977 AN ION GAP 9 07/19/2015 Comp Metabolic Ziz233 GL UCOSE 149 mg/dL 07/19/2015 Comp Metabolic Vns840 Cr eat 0.9 mg/dL 07/19/2015 Comp Metabolic Iwc122 eG FR 62 ml/min/1.73m2 07/18 Comp Metabolic Ikb727 BUN 19 mg/dL 07/19/2015 Comp Metabolic Uwu696 B/ C Ratio 20.2 Ratio 07/19/2015 Comp Metabolic Zhm929 CA LCIUM 9.5 mg/dL 07/19/2015 Comp Metabolic Ype021 AL K PHOS 52 U/L 07/19/2015 Comp Metabolic Lhi089 T(SGOT) 15 U/L 07/19/2015 Comp Metabolic Nre111 AL T(SGPT) 14 U/L 07/19/2015 Comp Metabolic Yzk236 BI LI T 0.5 mg/dL 07/19/2015 Comp Metabolic Wgz318 AL BUMIN 4.4 g/dL 07/19/2015 Comp Metabolic Emy456 TP RO 6.4 g/dL 07/19/2015 Comp Metabolic Bxz046 GL OB 2.0 g/dL 07/19/2015 Comp Metabolic Yhq995 A/ G Ratio 2.2 Ratio 07/19/2015 Comp Metabolic Yxd886 Os mo 281 mOsmo 07/19/2015 Free T4 Zni377 FREE T4 0.92 ng/dL 07/19/2015 Tsh Ord6 hTSH II 1.95 uIU/mL 07/19/2015 Microalbumin Txl464 Micr oAlb 0.4 mg/dL 07/19/2015 Comp Metabolic Vrw429 NA 137 mEq/L 12/04/2014 Comp Metabolic Cnz941 K 4.0 mEq/L 12/04/2014 Comp Metabolic Kwv082 CL 100 mEq/L 12/04/2014 Comp Metabolic Giy211 CO2 29.0 mEq/L 12/04/2014 Comp Metabolic Ojf069 AN ION GAP 12 12/04/2014 Comp Metabolic Hdp243 GL UCOSE 171 mg/dL 12/04/2014 Comp Metabolic Xcg908 Cr eat 1.0 mg/dL 12/04/2014 Comp Metabolic Vlb596 eG FR 60 ml/min/1.73m2 12/04 Comp Metabolic Taa870 BUN 25 mg/dL 12/04/2014 Comp Metabolic Vju035 B/ C Ratio 25.8 Ratio 12/04/2014 Comp Metabolic Ekn146 CA LCIUM 9.4 mg/dL 12/04/2014 Comp Metabolic Rsk073 AL K PHOS 60 U/L 12/04/2014 Comp Metabolic Lfv857 T(SGOT) 13 U/L 12/04/2014 Comp Metabolic Zpe115 AL T(SGPT) 17 U/L 12/04/2014 Comp Metabolic Nlo559 BI LI T 0.4 mg/dL 12/04/2014 Comp Metabolic Ehd873 AL BUMIN 4.4 g/dL 12/04/2014 Comp Metabolic Xac616 TP RO 6.9 g/dL 12/04/2014 Comp Metabolic Qff512 GL OB 2.5 g/dL 12/04/2014 Comp Metabolic Thp314 A/ G Ratio 1.8 Ratio 12/04/2014 Comp Metabolic Ydl146 Os mo 282 mOsmo 12/04/2014 Tsh Ord6 hTSH II 1.78 uIU/mL 12/04/2014 %Hba1C Lul811 % HbA1c 97854-5 8.3 % 12/04/2014 %Hba1C Cpv876 Gluc Ave 192 mg/dL 12/04/2014 Free T4 Fzq725 FREE T4 0.85 ng/dL 12/04/2014 Lipid Ord30 [...] General 1995 Eyes conjunctiva/eyelids Overall: conjunctiva clear 04/15/2017 None [...] Date URINALYSIS NONAUTO W /O SCOPE CPT-4: 69395 04/28/2018 URINALYSIS NONAUTO W /O SCOPE CPT-4: 46613 02/24/2018 URINALYSIS NONAUTO W /O SCOPE CPT-4: 83418 02/07/2018 ADMIN INFLUENZA VIRU S VAC CPT-4: G0008 11/25/2017 FLU VAC NO PRSV 4 VA L 3 YRS+ CPT-4: 49112 11/25/2017 GLUC MONITOR CONT PH YS I&R CPT-4: 08432 10/26/2017 GLUCOSE MONITORING CONT CPT-4: 28327 10/11/2017 URINALYSIS NONAUTO W /O SCOPE CPT-4: 50034 04/15/2017 FLU VAC NO PRSV 4 VA L 3 YRS+ CPT-4: 63866 12/17/2016 ADMIN INFLUENZA VIRU S VAC CPT-4: G0008 12/17/2016 FLU VACC PRSV FREE I NC ANTIG Formatting Model/CDA Sections, Assigned to/Nery Daniels CPT-4: [id number] 11/14/2015 ADMIN INFLUENZA VIRU S VAC CPT-4: G0008 11/14/2015 ADMIN INFLUENZA VIRU S VAC Formatting Model/CDA Sections, Assigned to/Nery Daniels CPT-4: [id number] 12/04/2014 FLU VACC 4 ANABELLE 3 YRS PLUS IM SNOMED CT: [id number] CPT-4: 61759 12/04/2014 Vital Signs Date Vital 04/27/2018 Blood Pressure 1: 118/44 Code: 8480-6 BMI: 28.3 Code: 53893-7 Heart Rate 1: 77 bpm Height: 5' SpO2: 99% Weight: 145 lbs 03/28/2018 Blood Pressure 1: 140/74 Code: 8480-6 BMI: 28.1 Code: 99647-1 Heart Rate 1: 87 bpm Height: 5' SpO2: 99% Weight: 144 lbs 02/24/2018 Blood Pressure 1: 130/62 Code: 8480-6 BMI: 28.9 Code: 20202-2 Heart Rate 1: 57 bpm Height: 5' SpO2: 99% Weight: 148 lbs 01/27/2018 Blood Pressure 1: 142/70 Code: 8480-6 BMI: 29.5 Code: 68748-6 Heart Rate 1: 61 bpm Height: 5' SpO2: 99% Weight: 151 lbs 11/25/2017 Blood Pressure 1: 148/72 Code: 8480-6 BMI: 30.9 Code: 86536-5 Heart Rate 1: 62 bpm Height: 5' SpO2: 98% Weight: 158 lbs 10/26/2017 Blood Pressure 1: 156/74 Code: 8480-6 BMI: 31.2 Code: 46650-4 Heart Rate 1: 71 bpm Height: 5' SpO2: 98% Weight: 160 lbs 10/11/2017 Blood Pressure 1: 128/70 Code: 8480-6 BMI: 30.9 Code: 03283-5 Heart Rate 1: 70 bpm Height: 5' SpO2: 95% Weight: 158 lbs 09/22/2017 Blood Pressure 1: 110/52 Code: 8480-6 BMI: 30.9 Code: 90183-6 Heart Rate 1: 72 bpm Height: 5' SpO2: 99% Weight: 158 lbs 07/06/2017 Blood Pressure 1: 120/85 Code: 8480-6 BMI: 31.4 Code: 69801-0 Heart Rate 1: 74 bpm Height: 5' SpO2: 92% Weight: 161 lbs 06/03/2017 Blood Pressure 1: 120/62 Code: 8480-6 BMI: 31.1 Code: 21718-5 Heart Rate 1: 73 bpm Height: 5' SpO2: 99% Weight: 159 lbs 05/12/2017 Blood Pressure 1: 132/68 Code: 8480-6 BMI: 32.4 Code: 29305-6 Heart Rate 1: 95 bpm Height: 5' SpO2: 97% Weight: 166 lbs 04/15/2017 Blood Pressure 1: 128/84 Code: 8480-6 BMI: 32.4 Code: 26714-6 Heart Rate 1: 62 bpm Height: 5' SpO2: 97% Weight: 166 lbs 03/19/2017 Blood Pressure 1: 112/60 Code: 8480-6 BMI: 32.0 Code: 80301-9 Height: 5' Weight: 164 lbs 02/03/2017 Blood Pressure 1: 128/76 Code: 8480-6 BMI: 33.4 Code: 50059-7 Heart Rate 1: 91 bpm Height: 5' SpO2: 99% Weight: 171 lbs 01/07/2017 Blood Pressure 1: 126/74 Code: 8480-6 BMI: 34.2 Code: 13910-3 Heart Rate 1: 83 bpm Height: 5' SpO2: 97% Weight: 175 lbs 12/17/2016 Blood Pressure 1: 122/72 Code: 8480-6 BMI: 34.0 Code: 40486-2 Heart Rate 1: 78 bpm Height: 5' SpO2: 97% Weight: 174 lbs 09/14/2016 Blood Pressure 1: 128/86 Code: 8480-6 BMI: 33.8 Code: 83087-1 Heart Rate 1: 88 bpm Height: 5' SpO2: 96% Weight: 173 lbs 06/18/2016 Blood Pressure 1: 122/74 Code: 8480-6 BMI: 34.8 Code: 64358-1 Heart Rate 1: 78 bpm Height: 5' SpO2: 98% Weight: 178 lbs 04/16/2016 Blood Pressure 1: 134/68 Code: 8480-6 BMI: 35.0 Code: 95636-8 Heart Rate 1: 67 bpm Height: 5' SpO2: 97% Weight: 179 lbs 03/19/2016 Blood Pressure 1: 132/74 Code: 8480-6 BMI: 34.6 Code: 13652-3 Heart Rate 1: 74 bpm Height: 5' SpO2: 97% Weight: 177 lbs 11/14/2015 Blood Pressure 1: 132/70 Code: 8480-6 BMI: 35.2 Code: 45148-0 Heart Rate 1: 68 bpm Height: 5' Weight: 180 lbs 08/14/2015 Blood Pressure 1: 122/74 Code: 8480-6 BMI: 33.8 Code: 55022-6 Heart Rate 1: 73 bpm Height: 5' SpO2: 93% Weight: 173 lbs 07/17/2015 Blood Pressure 1: 138/78 Code: 8480-6 BMI: 34.0 Code: 30020-0 Heart Rate 1: 85 bpm Height: 5' SpO2: 97% Weight: 174 lbs 03/25/2015 Blood Pressure 1: 130/78 Code: 8480-6 BMI: 33.2 Code: 34929-4 Heart Rate 1: 77 bpm Height: 5' SpO2: 97% Weight: 170 lbs 12/04/2014 Blood Pressure 1: 120/74 Code: 8480-6 BMI: 35.4 Code: 97953-1 Heart Rate 1: 67 bpm Height: 5' SpO2: 94% Weight: 181 lbs 5 oz 08/14/2014 Blood Pressure 1: 132/68 Code: 8480-6 BMI: 32.1 Code: 00973-4 Heart Rate 1: 62 bpm Height: 5'3" [...] nausea 01/27/2018 when she came home from [facility] hypertension Blood Pressure Values not checking [...] exercise 07/17/2015 None Hospital Follow Up _ [facility] er: 03/25/2015 None Hospital Follow Up Onset [...] Encounters Encounter Performer Loca tion Codes Date [id number] EST. PATIENT, LEVEL III Diagnosis: Right upper quadrant pain[ICD10: R10.11] Gardenia Nicole MD, [facility] CPT-4: 55683 04/27/2018 [id number]) 33368 EST. P ATIENT, LEVEL IV Diagnosis: Essential (primary) hypertension[ICD10: I10] Diagnosis: Right upper quadrant pain[ICD10: R10.11] Mila Nicole MD, [facility] CPT-4: 81090 03/28/2018 [id number]) 79260 EST. P ATIENT, LEVEL IV Diagnosis: Low back pain[ICD10: M54.5] Diagnosis: Dysuria[ICD10: R30.0] Diagnosis: Type 2 diabetes mellitus with hyperglycemia[ICD10: E11.65] Claudia Nicole MD, [facility] CPT-4: 56096 02/24/2018 [id number]) 68562 EST. P ATIENT, LEVEL IV Diagnosis: Type 2 diabetes mellitus with hyperglycemia[ICD10: E11.65] Diagnosis: Essential (primary) hypertension[ICD10: I10] Diagnosis: Major depressive disorder, recurrent, mild[ICD10: F33.0] Diagnosis: Generalized anxiety disorder[ICD10: F41.1] Claudia Nicole MD, [facility] CPT-4: 84472 01/27/2018 ([id number]) 40968 EST. P ATIENT, LEVEL IV Diagnosis: Type 2 diabetes mellitus with hyperglycemia[ICD10: E11.65] Diagnosis: Essential (primary) hypertension[ICD10: I10] Diagnosis: Encounter for immunization[ICD10: Z23] Diagnosis: Carpal tunnel syndrome, left upper limb[ICD10: G56.02] Claudia Nicole MD, [facility] CPT-4: 06966 11/25/2017 ([id number]) 11136 EST. P ATIENT, LEVEL III Diagnosis: Type 2 diabetes mellitus with hyperglycemia[ICD10: E11.65] Claudia Nicole MD, [facility] CPT-4: 26384 10/26/2017 ([id number]) Miscellaneou s no charge Diagnosis: Type 2 diabetes mellitus with hyperglycemia[ICD10: E11.65] Claudia Nicole MD, [facility] CPT-4: 29017 10/18/2017 ([id number]) 47696 EST. P ATIENT, LEVEL IV Diagnosis: Type 2 diabetes mellitus with diabetic autonomic (poly)neuropathy[ICD10: E11.43] Diagnosis: Essential (primary) hypertension[ICD10: I10] Mila Nicole MD, [facility] CPT-4: 33961 09/22/2017 ([id number]) 26868 EST. P ATIENT, LEVEL IV Diagnosis: Type 2 diabetes mellitus with hyperglycemia[ICD10: E11.65] Diagnosis: Paroxysmal atrial fibrillation[ICD10: I48.0] Diagnosis: Essential (primary) hypertension[ICD10: I10] Mila Nicole MD, C CPT-4: 89759 07/06/2017 ([id number]) 52759 EST. P ATIENT, LEVEL IV Diagnosis: Essential (primary) hypertension[ICD10: I10] Diagnosis: Type 2 diabetes mellitus with hyperglycemia[ICD10: E11.65] Diagnosis: Paroxysmal atrial fibrillation[ICD10: I48.0] Claudia Nicole MD, [facility] CPT-4: 76326 06/03/2017 77164 EST. PATIENT, LEVEL III Diagnosis: Generalized anxiety disorder[ICD10: F41.1] Diagnosis: Major depressive disorder, recurrent, moderate[ICD10: F33.1] Diagnosis: Paroxysmal tachycardia, unspecified[ICD10: I47.9] Gardenia Nicole MD, [facility] CPT-4: 52977 05/12/2017 ([id number]) 38909 EST. P ATIENT, LEVEL IV Diagnosis: Essential (primary) hypertension[ICD10: I10] Diagnosis: Cough[ICD10: R05] Diagnosis: Dysuria[ICD10: R30.0] Mila Nicole MD, [facility] CPT-4: 37575 04/15/2017 ([id number]) 23337 EST. P ATIENT, LEVEL IV Diagnosis: Type 2 diabetes mellitus with hyperglycemia[ICD10: E11.65] Diagnosis: Essential (primary) hypertension[ICD10: I10] Mila Nicole MD, [facility] CPT-4: 39106 03/19/2017 ([id number]) 72399 EST. P ATIENT, LEVEL III Diagnosis: Type 2 diabetes mellitus with hyperglycemia[ICD10: E11.65] Mila Nicole MD, [facility] CPT-4: 57752 02/03/2017 84233 EST. PATIENT, LEVEL IV Diagnosis: Generalized anxiety disorder[ICD10: F41.1] Diagnosis: Type 2 diabetes mellitus with hyperglycemia[ICD10: E11.65] Diagnosis: Essential (primary) hypertension[ICD10: I10] Gardenia Nicole MD, [facility] CPT-4: 65718 01/07/2017 ([id number]) 64120 EST. P ATIENT, LEVEL III Diagnosis: Type 2 diabetes mellitus with hyperglycemia[ICD10: E11.65] Diagnosis: Encounter for immunization[ICD10: Z23] Mila Nicole MD, [facility] CPT-4: 14039 12/17/2016 ([id number]) 90687 EST. P ATIENT, LEVEL IV Diagnosis: Type 2 diabetes mellitus with hyperglycemia[ICD10: E11.65] Diagnosis: Essential (primary) hypertension[ICD10: I10] Diagnosis: Major depressive disorder, recurrent, mild[ICD10: F33.0] Mila Nicole MD, [facility] CPT-4: 97033 09/14/2016 ([id number]) 53873 EST. 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 P ATIENT, LEVEL IV Diagnosis: Type 2 diabetes mellitus with hyperglycemia[ICD10: E11.65] Diagnosis: Essential (primary) hypertension[ICD10: I10] Mila Nicole MD, [facility] CPT-4: 65813 04/16/2016 ([id number]) 48047 EST. 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 P ATIENT, LEVEL IV Diagnosis: Type 2 diabetes mellitus with hyperglycemia[ICD10: E11.65] Diagnosis: Encounter for immunization[ICD10: Z23] Diagnosis: Essential (primary) hypertension[ICD10: I10] Mila Nicole MD, [facility] CPT-4: 96482 11/14/2015 ([id number]) 83651 EST. P ATIENT, LEVEL IV Diagnosis: Type 2 diabetes mellitus with hyperglycemia[ICD10: E11.65] Diagnosis: Essential (primary) hypertension[ICD10: I10] Diagnosis: Low back pain[ICD10: M54.5] Mila Nicole MD, [facility] CPT-4: 62732 08/14/2015 ([id number]) 59359 EST. P ATIENT, LEVEL IV Diagnosis: Type 2 diabetes mellitus with hyperglycemia[ICD10: E11.65] Diagnosis: Essential (primary) hypertension[ICD10: I10] Diagnosis: Hypothyroidism, unspecified[ICD10: E03.9] Mila Nicole MD, LL C CPT-4: 72749 07/17/2015 ([id number]) 82411 EST. P ATIENT, LEVEL IV Diagnosis: Essential (primary) hypertension[ICD10: I10] Diagnosis: Type 2 diabetes mellitus with hyperglycemia[ICD10: E11.65] Diagnosis: Headache[ICD10: R51] Gardenia Nicole MD, [facility] CPT-4: 91541 03/25/2015 ([id number]) 20013 EST. P ATIENT, LEVEL IV Diagnosis: ESSENTIAL HYPERTENSION[ICD9: 401.9] Diagnosis: DIABETES TYPE II[ICD9: 250.00] Diagnosis: Aortic stenosis[ICD9: 424.1] Mila Nicole MD, [facility] CPT-4: 71950 12/04/2014 ([id number]) OFFICE VISI T, [facility] - LEVEL 4 Diagnosis: ESSENTIAL HYPERTENSION[ICD9: 401.9] Diagnosis: Diabetes mellitus out of control[ICD9: 250.02] Mila Nicole MD [facility] CPT-4: 47144 08/14/2014 Plan of Care Planned Activity Notes [...] concerns. 04/27/2018 App[facility]ment[facility] [phone] [facility] [place] (10 min) Simple 04/27/2018 Patient Education: Patient Medication Summary Completed 04/27/2018 [facility]ment[facility] [phone] [facility] [place] (15 min) Moderate 04/05/2018 Visit [...] regimen. 03/28/2018 App[facility]ment: [facility] [phone] [facility] [place] (15 min) Moderate 03/28/2018 Patient Education: Patient Medication Summary Completed 03/28/2018 Patient Education: Hypertension Completed 03/28/2018 Care Plan: ECHO EXAM OF ABDOMEN Pending 03/28/2018 Visit Plan: Low back pain-xray lumb ar spine Dysuria- improved-will culture urine [id number] changes today 02/24/2018 App[facility]ment: [facility] [phone] [phone] [place] (15 min) Moderate 02/24/2018 Patient [...] current medications. 01/27/2018 Appointment: Claudia Pruitt WPtel: [phone] (15 min) Moderate 01/27/2018 Patient Education: [...] any worse 11/25/2017 Appointment: Claudia Pruitt WPtel: [phone] (15 min) Moderate 11/25/2017 Patient Education: Patient Medication Summary Completed 11/25/2017 Appointment: Mila Nicole WPtel: [facility] (15 min) Moderate 10/28/2017 Visit Plan: [...] appt. 10/26/2017 Appointment: [facility] [phone] [phone] [place] (15 min) Moderate 10/26/2017 Patient [...] Patient verbalized understanding of plan. 10/11/2017 Appointment: [facility] [phone] [phone] [place] (30 min) Complex 10/11/2017 Patient [...] Completed 09/22/2017 App[facility]ment: [facility] [phone] [facility] [place] (15 min) Moderate 09/13/2017 Appointment: Mila Nicole WPtel: [facility] (15 min) Moderate 09/07/2017 Visit [...] becoming uncontrolled. 07/06/2017 Appointment: Mila Nicole WPtel: [facility] (15 min) Moderate 07/06/2017 Patient Education: Patient Medication Summary Completed 07/06/2017 Appointment: Mila Nicole WPtel: [facility] (15 min) Moderate 06/07/2017 Visit [...] controlled. 06/03/2017 Appointment: Claudia Pruitt WPtel: [phone] [facility] Complex 06/03/2017 Patient Education: Patient [...] treatment plan 05/12/2017 Appointment: [facility] [phone] [facility] (30 min) Complex 05/12/2017 Patient Education: [...] medication. 04/15/2017 Appointment: Mila Nicole WPtel: [phone] [facility] (15 min) Moderate 04/15/2017 Patient [...] daily. 03/19/2017 Appointment: Mila Nicole WPtel: [phone] [facility] (15 min) Moderate 03/19/2017 Patient Education: Patient Medication Summary Completed 03/19/2017 Appointment: Mila Nicole WPtel: [phone] [facility] (15 min) Moderate 02/24/2017 Visit [...] lantus 10 units at 02/03/2017 Appointment: [facility] [phone] [facility] (15 min) Moderate 02/03/2017 Patient Education: [...] concerns. 01/07/2017 Appointment: [facility] [phone] [facility] (30 min) Complex 01/07/2017 Patient Education: [...] to allow for greater blood glucose control. [id number], 02/2018 junior nordisk 12/17/2016 Appointment: Mila Nicole WPtel: [phone] [facility] (15 min) Moderate 12/17/2016 Patient Education: Patient Medication Summary Completed 12/17/2016 Patient Education: Obesity Completed 12/17/2016 Appointment: Mila Nicole WPtel: [phone] [facility] (15 min) Moderate 12/14/2016 Visit [...] medications. 09/14/2016 Appointment: Mila Nicole WPtel: [phone] [facility] (15 min) Moderate 09/14/2016 Patient [...] home. 06/18/2016 Appointment: Mila Nicole WPtel: [phone] [facility] (15 min) Moderate 06/18/2016 Patient Education: Patient [...] home. 04/16/2016 Appointment: [facility] [phone] [facility] (15 min) Moderate 04/16/2016 Patient Education: [...] gabapentin 03/19/2016 Appointment: [facility] [phone] [facility] [place] (15 min) Moderate 03/19/2016 Patient [...] at home. 11/14/2015 Appointment: Mila Nicole WPtel: [address] [place], [place] [address] (15 min) Moderate 11/14/2015 Patient Education: Patient [...] check Hgba1c 07/17/2015 Appointment: Corey Mila WPtel: [facility] [place] (15 min) Moderate 07/17/2015 Patient [...] Hypertension Completed 03/25/2015 Appointment: [facility] [phone] [facility] (15 min) Moderate 01/14/2015 Visit Plan: [...] of control. 12/04/2014 Appointment: [facility] [phone] [facility] (15 min) Moderate 12/04/2014 Patient Education: [...] glucose control. 08/14/2014 Appointment: Mila Nicole WPtel: [facility] [place] (S[facility] New Patient 08/14/2014 Patient Education: Patient Medication Summary Completed 08/14/2014 Patient Education: Hypertension Completed 08/14/2014 Instructions Comment . RUQ pain, generali zed abdominal pain [...] readings are starting to become less controlled. INCREASE BASAGLAR TO 18 UNITS DAILY increase [...] bring log of blood sugars to appt. stop the glimepiride continue with metformin and [...] if their heart rate is becoming uncontrolled. Decrease victoza walter k to your previous [...] pt is to call for acute concerns. On 02/07/17 - stop t he Victoza [...] in blood pressure readings at home. . RUQ pain, generali zed abdominal pain [...] pain-xray lumbar spine Dysuria- improved-will culture urine EF-qqqolr-nd changes today cut back on carbohyd rates [...] to allow for greater blood glucose control. [id number], 02/2018 junior nordisk I think the entresto [...] pressure readings at home. Monitor your blood p ressure at home [...] continue with gabapentin . Anxiety - the bryan ent has [...]
--- OUTSIDE RECORDS SUMMARY | 2019-03-16 19:31 | XMS REPORT | CCD ---
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 Name Role Phone PP Unavailable CCM Unavailable Summary Purpose Interface Exchange Insurance Providers Payer name Policy type / Coverage type Covered democrat ID Effective Begin Date Effective End Date WPS Medicare Part B Medicare Part B [id number] Unknown AARP Medicare Part B [id number] Unknown Family history Mother Diagnosis Age At [...] Unknown 3 08/14/[address]: 754602669 Never smoker 08/14/[address]: 074772630 Never drinks alcohol 08/14/2014 Allergies, Adverse Reactions, Alerts Substance Reaction Codes Entered Date Inactivated Date Status * OTHER REACTION - S EE ANSWER BOX Invokana, Victoza Unknown 03/19/2017 No Inactive Date Active Paxil has blurred vision RxNorm: 553393 08/14/2014 No Inactive Date Active Lipitor RxNorm: 46941 08/14/2014 No Inactive Date Active Past Medical [...] ICD-10: E11.43 03/19/2016 Active Type 2 diabetes nane itus with hyperglycemia ICD-9: 250.02 ICD-10: E11.65 [...] Date Stop Date Sta tus Fill Instructions digoxin 250 mcg tablet RxNorm: 354024 0.25 MG PO DAILY 05/13/2018 No Stop Date Active Flagyl 500 mg tablet RxNorm: 098047 1 Tablet(s) PO TID 05/05/2018 05/14/2018 Active Flagyl 500 mg tablet RxNorm: 931413 1 Tablet(s) PO TID 05/05/2018 05/04/2018 Inactive Zetia 10 mg tablet RxNorm: 032438 1 Tablet(s) PO daily 03/28/2018 03/22/2019 Active tramadol 50 mg tablet RxNorm: 543756 1 Tablet(s) PO TID as needed 03/25/2018 No Stop Date Active fluticasone 50 mcg/a ctuation nasal spray,suspension RxNorm: 0462668 INSTILL ONE SPRAY IN EACH NOSTRILTWICE A DAY 03/16/2018 10/11/2018 Active Generic For:FLONASE SPR 0.05% 03/16/2018 8:50:59 AM Keflex 500 mg capsule RxNorm: 583615 1 Capsule(s) PO TID 02/11/2018 02/10/2018 Inactive Keflex 500 mg capsule RxNorm: 020049 1 Capsule(s) PO TID 02/11/2018 02/20/2018 Inactive metoprolol succinate ER 200 mg tablet,extended release 24 hr RxNorm: 666241 1 Tablet(s) PO daily 01/27/2018 No Stop Date Active Eliquis 2.5 mg tablet RxNorm: 3876297 1 Tablet(s) PO BID 01/27/2018 No Stop Date Active digoxin 125 mcg tablet RxNorm: 026678 1 Tablet(s) PO daily 01/27/2018 No Stop Date Active Basaglar KwikPen U-1 00 Insulin 100 unit/mL (3 mL) subcutaneous RxNorm: 4471875 20 Unit(s) SQ daily 11/25/2017 05/23/2018 Active UPDATE RX metformin 500 mg tablet RxNorm: 806084 1 Tablet(s) PO UD 1.5 in morning, noon a nd 1 at bedtime 10/28/2017 10/22/2018 Active Basaglar KwikPen U-1 00 Insulin 100 unit/mL (3 mL) subcutaneous RxNorm: 1772251 18 Unit(s) SQ daily 10/26/2017 11/24/2017 Inactive UPDATE RX levothyroxine 50 mcg tablet RxNorm: 478213 TAKE 1 TABLET BY MOUT H ONCE DAILY 10/15/2017 06/11/2018 Ac tive Generic For:SYNTHROID 50MCG TAB 018 9:59:00 AM escitalopram 10 mg t ablet RxNorm: 317921 1 Tablet(s) PO QPM 09/22/2017 09/16/2018 Active Generic For:LEXAPRO 5MG 01/07/2017 9:05 :43 AM Basaglar KwikPen U-1 00 Insulin 100 unit/mL (3 mL) subcutaneous RxNorm: 2018765 15 Unit(s) SQ daily 09/22/2017 10/25/2017 Inactive potassium chloride E R 20 mEq tablet,extended release RxNorm: 545032 1 Tablet(s) PO daily 06/22/2017 01/17/2018 Inactive Lantus Solostar U-10 0 Insulin 100 unit/mL (3 mL) subcutaneous pen RxNorm: 764074 10 Unit(s) SQ daily 06/08/2017 06/08/2017 Inactive Basaglar KwikPen U-1 00 Insulin 100 unit/mL (3 mL) subcutaneous RxNorm: 3209989 10 Unit(s) SQ daily 06/08/2017 06/07/2017 Inactive Basaglar KwikPen U-1 00 Insulin 100 unit/mL (3 mL) subcutaneous RxNorm: 7182572 10 Unit(s) SQ daily 06/08/2017 09/21/2017 Inactive Lexapro 5 mg tablet RxNorm: 213827 1 Tablet(s) PO daily 06/01/2017 11/27/2017 Inactive Lexapro 5 mg tablet RxNorm: 240613 1 Tablet(s) PO daily 05/12/2017 05/31/2017 Inactive bisoprolol 5 mg-hydr ochlorothiazide 6.25 mg tablet RxNorm: 491718 1 Tablet(s) PO BID 05/04/2017 06/02/2017 Inactive Keflex 500 mg capsule RxNorm: 748204 1 Capsule(s) PO QID 04/15/2017 04/21/2017 Inactive Lantus Solostar 100 unit/mL (3 mL) subcutaneous insulin pen RxNorm: 914435 10 Unit(s) SQ daily 02/03/2017 06/07/2017 Inactive levothyroxine 50 mcg tablet RxNorm: 289715 TAKE 1 TABLET BY MOUT H ONCE DAILY 02/01/2017 09/28/2017 In active Generic For:SYNTHROID 50MCG TAB 017 9:20:59 AM gabapentin 600 mg ta blet RxNorm: 497303 1 Capsule(s) PO TID 01/27/2017 01/21/2018 Inactive Lexapro 5 mg tablet RxNorm: 626266 TAKE 1 TABLET BY MOUTH AT BEDTIME 01/07/2017 09/21/2017 In active Generic For:LEXAPRO 5MG 01/07/2017 9:05 :43 AM Victoza 2-Dariusz 0.6 mg /0.1 mL (18 mg/3 mL) subcutaneous pen injector RxNorm: 667913 1.8 Milligram(s) SQ daily 12/17/2016 02/07/2017 Inactive Victoza 3-Dariusz 0.6 mg /0.1 mL (18 mg/3 mL) subcutaneous pen injector RxNorm: 793640 Milligram(s) SQ 12/17/2016 02/07/2017 Inactive Zetia 10 mg tablet RxNorm: 286817 1 Tablet(s) PO daily 11/17/2016 11/11/2017 Inactive fluticasone 50 mcg/a ctuation nasal spray,suspension RxNorm: 9889773 [place] NASAL ONE SPRAY IN EACH NOSTRIL TWICE DAILY 09/28/2016 04/25/2017 Inactive Victoza 2-Dariusz 0.6 mg /0.1 mL (18 mg/3 mL) subcutaneous pen injector RxNorm: 683663 1.2 Milligram(s) SQ daily 09/14/2016 12/16/2016 Inactive Lexapro 5 mg tablet RxNorm: 139628 1 Tablet(s) PO QHS 09/14/2016 12/12/2016 Inactive metformin 500 mg tablet RxNorm: 464974 1 Tablet(s) PO UD 1.5 in morning, noon a nd 1 at bedtime 09/08/2016 09/02/2017 Inactive glimepiride 4 mg tablet RxNorm: 354594 TAKE 1 TABLET BY MOUTH ONCE DAILY 07/31/2016 09/13/2016 In active Generic For:*AMARYL 4MG 07/31/2016 9:02 :38 AM Victoza 2-Dariusz 0.6 mg /0.1 mL (18 mg/3 mL) subcutaneous pen injector RxNorm: 314618 1.2 Milligram(s) SQ daily 05/18/2016 09/13/2016 Inactive Victoza 2-Dariusz 0.6 mg /0.1 mL (18 mg/3 mL) subcutaneous pen injector RxNorm: 680062 1.2 Milligram(s) SQ daily 04/16/2016 05/17/2016 Inactive levothyroxine 50 mcg tablet RxNorm: 352021 TAKE 1 TABLET BY MOUT H ONCE DAILY 04/08/2016 12/03/2016 In active Generic For:SYNTHROID 50MCG TAB 017 9:05:40 AM levothyroxine 50 mcg tablet RxNorm: 243025 1 Tablet(s) PO daily TAKE 1 TABLET BY MOUTH ONCE DAILY 04/08/2016 12/03/2016 Inactive Generic For:SYNTHROID 50MCG TAB N O T I C E PRESCRIPTION PREVIOUSLY AUTHORIZED BY DOCTOR:HENRY BAIG bisoprolol 5 mg-hydr ochlorothiazide 6.25 mg tablet RxNorm: 383741 1 Tablet(s) PO BID 03/23/2016 03/17/2017 Inactive Victoza 2-Dariusz 0.6 mg /0.1 mL (18 mg/3 mL) subcutaneous pen injector RxNorm: 192804 0.6 Milligram(s) SQ daily 03/19/2016 04/15/2016 Inactive Lexapro 5 mg tablet RxNorm: 608142 1 Tablet(s) PO QHS 03/19/2016 06/16/2016 Inactive gabapentin 600 mg ta blet RxNorm: 801982 1 Capsule(s) PO TID 03/19/2016 01/26/2017 Inactive glimepiride 4 mg tablet RxNorm: 341617 1 Tablet(s) PO daily 12/09/2015 06/05/2016 Inactive Victoza 3-Dariusz 0.6 mg /0.1 mL (18 mg/3 mL) subcutaneous pen injector RxNorm: 257398 0.6 Milligram(s) SQ daily x2 weeks, then 1.2 mg SQ daily 12/02/2015 03/18/2016 Inactive metformin 500 mg tablet RxNorm: 919056 1 Tablet(s) PO UD 1.5 in morning, noon a nd 1 at bedtime 08/14/2015 08/07/2016 Inactive gabapentin 600 mg ta blet RxNorm: 671100 1 Capsule(s) PO TID S HE IS ONLY TAKING 1 QD 08/14/2015 03/18/2016 In active fluticasone 50 mcg/a ctuation nasal spray,suspension RxNorm: 986449 [place] NASAL ONE SPRAY IN EACH NOSTRIL TWICE DAILY 07/26/2015 07/25/2015 Inactive fluticasone 50 mcg/a ctuation nasal spray,suspension RxNorm: 1046190 [place] NASAL ONE SPRAY IN EACH NOSTRIL TWICE DAILY 07/26/2015 02/20/2016 Inactive bisoprolol 5 mg-hydr ochlorothiazide 6.25 mg tablet RxNorm: 861448 1 Tablet(s) PO daily 1 Tablet(s) PO BID 07/17/2015 01/12/2016 Inactive metformin 500 mg tablet RxNorm: 212407 1 Tablet(s) PO TID 1 Tablet(s) PO TID 07/17/2015 08/13/2015 In active Diflucan 100 mg tablet RxNorm: 742790 1 Tablet(s) PO daily 07/17/2015 07/21/2015 Inactive Zetia 10 mg tablet RxNorm: 523080 1 Tablet(s) PO daily 06/10/2015 06/03/2016 Inactive bisoprolol 5 mg-hydr ochlorothiazide 6.25 mg tablet RxNorm: 258254 1 Tablet(s) PO BID 04/18/2015 07/16/2015 Inactive metformin 500 mg tablet RxNorm: 425493 1 Tablet(s) PO TID 03/01/2015 06/28/2015 Inactive glimepiride 4 mg tablet RxNorm: 589564 1 Tablet(s) PO daily 01/31/2015 01/30/2015 Inactive levothyroxine 50 mcg tablet RxNorm: 522004 TAKE 1 TABLET BY MOUT H ONCE DAILY 01/31/2015 09/27/2015 In active Generic For:SYNTHROID 50MCG TAB N O T I C E PRESCRIPTION PREVIOUSLY AUTHORIZED BY DOCTOR:HENRY BAIG glimepiride 4 mg tablet RxNorm: 996644 1 Tablet(s) PO daily 01/31/2015 07/29/2015 Inactive Invokana 100 mg tablet RxNorm: 2379826 1 Tablet(s) PO daily 12/12/2014 07/16/2015 Inactive bisoprolol 5 mg-hydr ochlorothiazide 6.25 mg tablet RxNorm: 417034 1 Tablet(s) PO BID 08/27/2014 02/22/2015 Inactive metformin 500 mg tablet RxNorm: 999145 1 Tablet(s) PO TID 08/10/2014 12/07/2014 Inactive metformin 500 mg tablet RxNorm: 997523 1 Tablet(s) PO TID 08/10/2014 08/09/2014 Inactive Fish Oil 1,000 mg ca psule RxNorm: 1 Capsule(s) PO daily No Start Date Active Protonix 40 mg table t,delayed release RxNorm: 664469 1 Tablet(s) PO QAM No Start Date Active furosemide 40 mg tablet RxNorm: 644398 1 Tablet(s) PO daily No Start Date Active pen needle, diabetic 31 gauge x 1/6" RxNorm: Miscellaneous N o Start Date Active nitroglycerin 0.4 mg sublingual tablet RxNorm: 555756 1 Tablet(s) SL as nee ded chest pain No Start Date Active amlodipine 5 mg tablet RxNorm: 599779 1 Tablet(s) PO daily No Start Date Active Entresto 24 mg-26 mg tablet RxNorm: 0896844 1 Tablet(s) PO BID No Start Date Active aspirin 81 mg chewab le tablet RxNorm: 087754 1 Tablet(s) PO daily No Start Date 06/02/2017 Inactive Eliquis 5 mg tablet RxNorm: 6468621 1 Tablet(s) PO BID No Start Date 01/26/2018 Inactive bisoprolol-hydrochlo rothiazide oral RxNorm: [address] art Date 08/26/2014 Inactive levothyroxine 50 mcg tablet RxNorm: 835474 1 Tablet(s) PO daily No Start Date 01/30/2015 Inactive potassium chloride E R 20 mEq tablet,extended release RxNorm: 910685 1 Tablet(s) PO daily No Start Date 06/21/2017 Inactive digoxin 250 mcg tablet RxNorm: 156591 1 Tablet(s) PO daily No Start Date 01/26/2018 Inactive Invokana 100 mg tablet RxNorm: 9391073 1 Tablet(s) PO daily No Start Date 12/11/2014 Inactive tramadol 50 mg tablet RxNorm: 230533 1 Tablet(s) PO TID as needed No Start Date 03/22/2018 Inactive Victoza 3-Dariusz 0.6 mg /0.1 mL (18 mg/3 mL) subcutaneous pen injector RxNorm: 980402 0.6 Milligram(s) SQ daily x2 weeks, then 1.2 mg SQ daily No Start Date 12/01/2015 Inactive Effient 10 mg tablet RxNorm: 224936 1 Tablet(s) PO QAM No Start Date 01/26/2018 Inactive Zetia 10 mg tablet RxNorm: 223589 1 Tablet(s) PO BID No Start Date 03/18/2016 Inactive metoprolol succinate ER 100 mg tablet,extended release 24 hr RxNorm: 643731 1 Tablet(s) PO daily No Start Date 01/26/2018 Inactive gabapentin 300 mg ca psule RxNorm: 595577 1 Capsule(s) PO BID No Start Date 08/13/2015 Inactive Lasix 40 mg tablet RxNorm: 050802 1 Tablet(s) PO BID No Start Date 04/14/2017 Inactive Coreg 3.125 mg tablet RxNorm: 842689 1 Tablet(s) PO BID with meals No [...] 04/15/2017 stress test and then shipped to [facility] Follow Up 03/19/2017 stress test and then shipped to [facility] diabetes mellitus 02/03/2017 headache 01/07/2017 diabetes mellitus 12/17/2016 diabetes mellitus 09/14/2016 diabetes mellitus 06/18/2016 medication follow up 04/16/2016 back pain 03/19/2016 back pain 11/14/2015 back pain 08/14/2015 diabetes mellitus 07/17/2015 Hospital Follow Up 03/25/2015 diabetes mellitus 12/04/2014 diabetes mellitus 08/14/2014 Results Observation Observation Code Item Item Code Result Date Culture Urine [id number] URI NE CULTURE SEE NOTES 02/28/2018 Urine [...] 28.8 pg 02/24/2018 Cbc With Differential Ord2 [place]% 5.7 % 02/24/2018 Cbc With Differential Ord2 [...] 1.57 K/ul 02/24/2018 Cbc With Differential Ord2 [place] ABS# 0.4 K/ul 02/24/2018 Cbc With Differential Ord2 Eos ABS# 0.1 K/ul 02/24/2018 Cbc With Differential Ord2 Baso ABS# 0.0 K/ul 02/24/2018 Comp Metabolic Yru478 NA 138 mEq/L 02/24/2018 Comp Metabolic Xlh254 K 4.4 mEq/L 02/24/2018 Comp Metabolic Gzg095 CL 100 mEq/L 02/24/2018 Comp Metabolic Fcy941 CO2 27.0 mEq/L 02/24/2018 Comp Metabolic Wxs071 AN ION GAP 15 02/24/2018 Comp Metabolic Vzw697 GL UCOSE 98 mg/dL 02/24/2018 Comp Metabolic Rek907 Cr eat 1.0 mg/dL 02/24/2018 Comp Metabolic Wrj607 eG FR 55 ml/min/1.73m2 02/24 Comp Metabolic Uqk148 BUN 25 mg/dL 02/24/2018 Comp Metabolic Jny604 B/ C Ratio 24.3 Ratio 02/24/2018 Comp Metabolic Btn438 CA LCIUM 9.4 mg/dL 02/24/2018 Comp Metabolic Dyx321 AL K PHOS 46 U/L 02/24/2018 Comp Metabolic Poj813 T(SGOT) 13 U/L 02/24/2018 Comp Metabolic Klp736 AL T(SGPT) 12 U/L 02/24/2018 Comp Metabolic Civ889 BI LI T 0.4 mg/dL 02/24/2018 Comp Metabolic Cuk842 AL BUMIN 4.5 g/dL 02/24/2018 Comp Metabolic Zlp819 TP RO 6.6 g/dL 02/24/2018 Comp Metabolic Slr306 GL OB 2.1 g/dL 02/24/2018 Comp Metabolic Cxe440 A/ G Ratio 2.1 Ratio 02/24/2018 Comp Metabolic Ewp090 Os mo 280 mOsmo 02/24/2018 Culture Urine [id number] URI NE CULTURE SEE NOTES 02/11/2018 Culture Urine [id number] Con tinued Results 02/11/2018 Urine Culture Ucult Comp lete >100,000 col/ml aerobic grow th sent to ref lab 02/08/2018 %Hba1C Djk581 % HbA1c 81481-9 6.8 % 01/12/2018 %Hba1C Tjp769 Gluc Ave 148 mg/dL 01/12/2018 Metabolic Ord15 [...] 89.9 fl 01/11/2018 Cbc With Differential Ord2 [place]% 7.8 % 01/11/2018 Cbc With Differential Ord2 [...] 1.70 K/ul 01/11/2018 Cbc With Differential Ord2 [place] ABS# 0.4 K/ul 01/11/2018 Cbc With Differential Ord2 Eos ABS# 0.1 K/ul 01/11/2018 Cbc With Differential Ord2 Baso ABS# 0.0 K/ul 01/11/2018 Magnesium Ord90 Mag 1.7 mg/dL 01/11/2018 Test(s) Not Perfromed [id number] Test(s) Not Performed Test(s) Not Performed. See Below: 09/20/2017 Test(s) Not Perfromed [id number] TEST NAME BNP 09/20/2017 Test(s) Not Perfromed [id number] Rejection Reason Patient Refused due to lack of coving diganosis 09/20/2017 Test(s) Not Perfromed [id number] COMMENT Dorita Notified 11/2017 Test(s) Not Perfromed JYQ1226 [employer] Miguel Quesadat 09/20/2017 B Type Natriuretic Peptide [id number] B-CLINICAL LABORATORY MEDICAL DIRECTOR 889.00 pg/ml 8 Cbc With Differential Ord2 WBC 5.72 K/ul 09/20/2017 Cbc With Differential Ord2 RBC 3.88 M/ul 09/20/2017 Cbc With Differential Ord2 HGB 11.2 g/dl 09/20/2017 Cbc With Differential Ord2 Neut% 62.4 % 09/20/2017 Cbc With Differential Ord2 HCT 35.0 % 09/20/2017 Cbc With Differential Ord2 Lymph% 29.4 % 09/20/2017 Cbc With Differential Ord2 MCV 90.2 fl 09/20/2017 Cbc With Differential Ord2 [place]% 5.6 % 09/20/2017 Cbc With Differential Ord2 [...] 1.68 K/ul 09/20/2017 Cbc With Differential Ord2 [place] ABS# 0.3 K/ul 09/20/2017 Cbc With Differential Ord2 Eos ABS# 0.1 K/ul 09/20/2017 Cbc With Differential Ord2 Baso ABS# 0.0 K/ul 09/20/2017 %Hba1C Yfi600 % HbA1c 83823-4 7.9 % 09/20/2017 %Hba1C Jay461 Gluc Ave 180 mg/dL 09/20/2017 Magnesium Ord90 [...] 28.3 pg 07/07/2017 Cbc With Differential Ord2 [place]% 7.9 % 07/07/2017 Cbc With Differential Ord2 [...] 1.34 K/ul 07/07/2017 Cbc With Differential Ord2 [place] ABS# 0.4 K/ul 07/07/2017 Cbc With Differential Ord2 Eos ABS# 0.1 K/ul 07/07/2017 Cbc With Differential Ord2 Baso ABS# 0.0 K/ul 07/07/2017 Comp Metabolic Suv156 NA 142 mEq/L 07/07/2017 Comp Metabolic Gbt087 K 4.3 mEq/L 07/07/2017 Comp Metabolic Bvs252 CL 105 mEq/L 07/07/2017 Comp Metabolic Gxq732 CO2 28.0 mEq/L 07/07/2017 Comp Metabolic Jqj721 AN ION GAP 13 07/07/2017 Comp Metabolic Pkv042 GL UCOSE 197 mg/dL 07/07/2017 Comp Metabolic Jgt518 Cr eat 1.1 mg/dL 07/07/2017 Comp Metabolic Zvv672 eG FR 51 ml/min/1.73m2 07/07 Comp Metabolic Xkm443 BUN 21 mg/dL 07/07/2017 Comp Metabolic Kki780 B/ C Ratio 18.9 Ratio 07/07/2017 Comp Metabolic Dws168 CA LCIUM 8.9 mg/dL 07/07/2017 Comp Metabolic Gtq035 AL K PHOS 51 U/L 07/07/2017 Comp Metabolic Vse359 T(SGOT) 11 U/L 07/07/2017 Comp Metabolic Ucn976 AL T(SGPT) 11 U/L 07/07/2017 Comp Metabolic Mis595 BI LI T 0.3 mg/dL 07/07/2017 Comp Metabolic Aeq922 AL BUMIN 4.2 g/dL 07/07/2017 Comp Metabolic Wte706 TP RO 6.0 g/dL 07/07/2017 Comp Metabolic Sqz175 GL OB 1.8 g/dL 07/07/2017 Comp Metabolic Tpi522 A/ G Ratio 2.3 Ratio 07/07/2017 Comp Metabolic Kdt298 Os mo 292 mOsmo 07/07/2017 Digoxin Ord9 DIGOXIN 1.3 NG/ML 07/07/2017 Tsh Ord6 TSH (3rd IS) 2.19 uIU/mL 07/07/2017 B Type Natriuretic Peptide Bhe6733 B-CLINICAL LABORATORY MEDICAL DIRECTOR 801.00 pg/ml 8 Culture Urine [id number] URI NE CULTURE SEE NOTES 04/19/2017 Culture Urine [id number] Con tinued Results 04/19/2017 Urine Culture Ucult Comp lete >100,000 col/ml aerobic grow th sent to ref lab 04/16/2017 Comp Metabolic Uwv021 NA 140 mEq/L 01/26/2017 Comp Metabolic Uoc548 K 4.6 mEq/L 01/26/2017 Comp Metabolic Ofn067 CL 102 mEq/L 01/26/2017 Comp Metabolic Rvb460 CO2 28.0 mEq/L 01/26/2017 Comp Metabolic Yat159 AN ION GAP 15 01/26/2017 Comp Metabolic Knl175 GL UCOSE 173 mg/dL 01/26/2017 Comp Metabolic Fzc828 Cr eat 1.0 mg/dL 01/26/2017 Comp Metabolic Rgg387 eG FR 56 ml/min/1.73m2 01/26 Comp Metabolic Xov914 BUN 23 mg/dL 01/26/2017 Comp Metabolic Hss417 B/ C Ratio 22.5 Ratio 01/26/2017 Comp Metabolic Xpa167 CA LCIUM 9.4 mg/dL 01/26/2017 Comp Metabolic Peb230 AL K PHOS 52 U/L 01/26/2017 Comp Metabolic Xlp709 T(SGOT) 12 U/L 01/26/2017 Comp Metabolic Jax634 AL T(SGPT) 12 U/L 01/26/2017 Comp Metabolic Szy536 BI LI T 0.5 mg/dL 01/26/2017 Comp Metabolic Gic207 AL BUMIN 4.4 g/dL 01/26/2017 Comp Metabolic Psj534 TP RO 6.5 g/dL 01/26/2017 Comp Metabolic Nif698 GL OB 2.1 g/dL 01/26/2017 Comp Metabolic Mps091 A/ G Ratio 2.1 Ratio 01/26/2017 Comp Metabolic Vto938 Os mo 287 mOsmo 01/26/2017 Cbc With [...] 29.2 pg 01/26/2017 Cbc With Differential Ord2 [place]% 4.9 % 01/26/2017 Cbc With Differential Ord2 [...] 1.75 K/ul 01/26/2017 Cbc With Differential Ord2 [place] ABS# 0.4 K/ul 01/26/2017 Cbc With Differential Ord2 Eos ABS# 0.1 K/ul 01/26/2017 Cbc With Differential Ord2 Baso ABS# 0.0 K/ul 01/26/2017 %Hba1C Xyv506 % HbA1c 46636-1 7.8 % 01/26/2017 %Hba1C Rqp649 Gluc Ave 177 mg/dL 01/26/2017 Lipid Ord30 CHOL 239 mg/dL 01/26/2017 Lipid Ord30 HDL 40.0 mg/dl 01/26/2017 Lipid Ord30 TRIG 325 mg/dL 01/26/2017 Lipid Ord30 LDL 134 mg/dL 01/26/2017 Lipid Ord30 C/HDL 6.0 Ratio 01/26/2017 Free T4 Uyr230 FREE T4 0.95 ng/dL 01/26/2017 Tsh Ord6 [...] Metabolic Ord15 CALCIUM 9.0 mg/dL 09/08/2016 %Hba1C Acr388 % HbA1c 58078-0 7.5 % 09/08/2016 %Hba1C Vht242 Gluc Ave 169 mg/dL 09/08/2016 Tsh Ord6 hTSH II 2.64 uIU/mL 03/13/2016 %Hba1C Reb141 % HbA1c 77255-0 8.2 % 03/13/2016 %Hba1C Mjl264 Gluc Ave 189 mg/dL 03/13/2016 Lipid Ord30 CHOL 233 mg/dL 03/13/2016 Lipid Ord30 HDL 46.0 mg/dl 03/13/2016 Lipid Ord30 TRIG 276 mg/dL 03/13/2016 Lipid Ord30 LDL 132 mg/dL 03/13/2016 Lipid Ord30 C/HDL 5.1 Ratio 03/13/2016 Free T4 Euw585 FREE T4 0.94 ng/dL 03/13/2016 Cbc With [...] 29.5 % 03/13/2016 Cbc With Differential Ord2 [place]% 6.1 % 03/13/2016 Cbc With Differential Ord2 [...] 1.63 K/ul 03/13/2016 Cbc With Differential Ord2 [place] ABS# 0.3 K/ul 03/13/2016 Cbc With Differential Ord2 Eos ABS# 0.1 K/ul 03/13/2016 Cbc With Differential Ord2 Baso ABS# 0.0 K/ul 03/13/2016 Comp Metabolic Ldr146 NA 139 mEq/L 03/13/2016 Comp Metabolic Rzb883 K 4.3 mEq/L 03/13/2016 Comp Metabolic Jeo812 CL 103 mEq/L 03/13/2016 Comp Metabolic Kep293 CO2 28.0 mEq/L 03/13/2016 Comp Metabolic Ovt376 AN ION GAP 12 03/13/2016 Comp Metabolic Tgm464 GL UCOSE 200 mg/dL 03/13/2016 Comp Metabolic Cez667 Cr eat 0.9 mg/dL 03/13/2016 Comp Metabolic Uhm338 eG FR 69 ml/min/1.73m2 03/13 Comp Metabolic Yvq650 BUN 19 mg/dL 03/13/2016 Comp Metabolic Qso275 B/ C Ratio 22.4 Ratio 03/13/2016 Comp Metabolic Ftz366 CA LCIUM 9.0 mg/dL 03/13/2016 Comp Metabolic Gzv140 AL K PHOS 57 U/L 03/13/2016 Comp Metabolic Gzl954 T(SGOT) 13 U/L 03/13/2016 Comp Metabolic Hfr590 AL T(SGPT) 16 U/L 03/13/2016 Comp Metabolic Gxl511 BI LI T 0.4 mg/dL 03/13/2016 Comp Metabolic Ukg084 AL BUMIN 4.2 g/dL 03/13/2016 Comp Metabolic Uac801 TP RO 6.3 g/dL 03/13/2016 Comp Metabolic Mmv910 GL OB 2.1 g/dL 03/13/2016 Comp Metabolic Yol459 A/ G Ratio 2.0 Ratio 03/13/2016 Comp Metabolic Wfs437 Os mo 285 mOsmo 03/13/2016 %Hba1C Zcw003 % HbA1c 37752-1 8.3 % 11/14/2015 %Hba1C Rqv906 Gluc Ave 192 mg/dL 11/14/2015 Lipid Ord30 CHOL 210 mg/dL 07/19/2015 Lipid Ord30 HDL 43.0 mg/dl 07/19/2015 Lipid Ord30 TRIG 311 mg/dL 07/19/2015 Lipid Ord30 LDL 105 mg/dL 07/19/2015 Lipid Ord30 C/HDL 4.9 Ratio 07/19/2015 %Hba1C Pev707 % HbA1c 95121-3 7.6 % 07/19/2015 %Hba1C Jnj499 Gluc Ave 171 mg/dL 07/19/2015 Cbc With [...] 28.8 pg 07/19/2015 Cbc With Differential Ord2 [place]% 6.1 % 07/19/2015 Cbc With Differential Ord2 [...] 1.63 K/ul 07/19/2015 Cbc With Differential Ord2 [place] ABS# 0.3 K/ul 07/19/2015 Cbc With Differential Ord2 Eos ABS# 0.1 K/ul 07/19/2015 Cbc With Differential Ord2 Baso ABS# 0.0 K/ul 07/19/2015 Cbc With Differential Ord2 New Analyzer Notice Please note new ref ranges s tarting 03-27-2015 due to implemntation of new five part differential hematolgy analyzer. 07/19/2015 Comp Metabolic Fil846 NA 138 mEq/L 07/19/2015 Comp Metabolic Hgl079 K 4.3 mEq/L 07/19/2015 Comp Metabolic Xdp605 CL 100 mEq/L 07/19/2015 Comp Metabolic Oxi366 CO2 33.0 mEq/L 07/19/2015 Comp Metabolic Xyj569 AN ION GAP 9 07/19/2015 Comp Metabolic Vlv043 GL UCOSE 149 mg/dL 07/19/2015 Comp Metabolic Ziy905 Cr eat 0.9 mg/dL 07/19/2015 Comp Metabolic Sho993 eG FR 62 ml/min/1.73m2 07/18 Comp Metabolic Hdf060 BUN 19 mg/dL 07/19/2015 Comp Metabolic Fxp320 B/ C Ratio 20.2 Ratio 07/19/2015 Comp Metabolic Wit284 CA LCIUM 9.5 mg/dL 07/19/2015 Comp Metabolic Bkw439 AL K PHOS 52 U/L 07/19/2015 Comp Metabolic Dnd580 T(SGOT) 15 U/L 07/19/2015 Comp Metabolic Qrp440 AL T(SGPT) 14 U/L 07/19/2015 Comp Metabolic Dtm918 BI LI T 0.5 mg/dL 07/19/2015 Comp Metabolic Pjf343 AL BUMIN 4.4 g/dL 07/19/2015 Comp Metabolic Bvg453 TP RO 6.4 g/dL 07/19/2015 Comp Metabolic Zvo796 GL OB 2.0 g/dL 07/19/2015 Comp Metabolic Jyi111 A/ G Ratio 2.2 Ratio 07/19/2015 Comp Metabolic Orm426 Os mo 281 mOsmo 07/19/2015 Free T4 Njr456 FREE T4 0.92 ng/dL 07/19/2015 Tsh Ord6 hTSH II 1.95 uIU/mL 07/19/2015 Microalbumin Pqq075 Micr oAlb 0.4 mg/dL 07/19/2015 Comp Metabolic Tdd087 NA 137 mEq/L 12/04/2014 Comp Metabolic Bvm521 K 4.0 mEq/L 12/04/2014 Comp Metabolic Exg977 CL 100 mEq/L 12/04/2014 Comp Metabolic Zxn392 CO2 29.0 mEq/L 12/04/2014 Comp Metabolic Anr016 AN ION GAP 12 12/04/2014 Comp Metabolic Aun264 GL UCOSE 171 mg/dL 12/04/2014 Comp Metabolic Fwq812 Cr eat 1.0 mg/dL 12/04/2014 Comp Metabolic Luj787 eG FR 60 ml/min/1.73m2 12/04 Comp Metabolic Dbl396 BUN 25 mg/dL 12/04/2014 Comp Metabolic Fuh901 B/ C Ratio 25.8 Ratio 12/04/2014 Comp Metabolic Msg410 CA LCIUM 9.4 mg/dL 12/04/2014 Comp Metabolic Jtu748 AL K PHOS 60 U/L 12/04/2014 Comp Metabolic Ukr263 T(SGOT) 13 U/L 12/04/2014 Comp Metabolic Kyv602 AL T(SGPT) 17 U/L 12/04/2014 Comp Metabolic Emg731 BI LI T 0.4 mg/dL 12/04/2014 Comp Metabolic Gzz969 AL BUMIN 4.4 g/dL 12/04/2014 Comp Metabolic Emi852 TP RO 6.9 g/dL 12/04/2014 Comp Metabolic Rmt052 GL OB 2.5 g/dL 12/04/2014 Comp Metabolic Hsc715 A/ G Ratio 1.8 Ratio 12/04/2014 Comp Metabolic Umv644 Os mo 282 mOsmo 12/04/2014 Tsh Ord6 hTSH II 1.78 uIU/mL 12/04/2014 %Hba1C Ile549 % HbA1c 97370-4 8.3 % 12/04/2014 %Hba1C Mbm714 Gluc Ave 192 mg/dL 12/04/2014 Free T4 Kzg820 FREE T4 0.85 ng/dL 12/04/2014 Lipid Ord30 [...] General 1995 Eyes conjunctiva/eyelids Overall: eyelids normal 04/15/2017 None [...] benign 03/19/2016 None Full Exam - General 1995 Ears/Nose/Throat oral cavity/pharynx/larynx Overall: no masses 03/19/2016 [...] Date URINALYSIS NONAUTO W /O SCOPE CPT-4: 80309 04/28/2018 URINALYSIS NONAUTO W /O SCOPE CPT-4: 67015 02/24/2018 URINALYSIS NONAUTO W /O SCOPE CPT-4: 07568 02/07/2018 ADMIN INFLUENZA VIRU S VAC CPT-4: G0008 11/25/2017 FLU VAC NO PRSV 4 VA L 3 YRS+ CPT-4: 31960 11/25/2017 GLUC MONITOR CONT PH YS I&R CPT-4: 13937 10/26/2017 GLUCOSE MONITORING CONT CPT-4: 78232 10/11/2017 URINALYSIS NONAUTO W /O SCOPE CPT-4: 53962 04/15/2017 FLU VAC NO PRSV 4 VA L 3 YRS+ CPT-4: 21195 12/17/2016 ADMIN INFLUENZA VIRU S VAC CPT-4: G0008 12/17/2016 FLU VACC PRSV FREE I NC ANTIG Formatting Model/CDA Sections, Assigned to/Nery Daniels CPT-4: [id number] 11/14/2015 ADMIN INFLUENZA VIRU S VAC CPT-4: G0008 11/14/2015 ADMIN INFLUENZA VIRU S VAC Formatting Model/CDA Sections, Assigned to/Nery Daniels CPT-4: [id number] 12/04/2014 FLU VACC 4 ANABELLE 3 YRS PLUS IM SNOMED CT: [id number] CPT-4: 51717 12/04/2014 Vital Signs Date Vital 04/27/2018 Blood Pressure 1: 118/44 Code: 8480-6 BMI: 28.3 Code: 15772-1 Heart Rate 1: 77 bpm Height: 5' SpO2: 99% Weight: 145 lbs 03/28/2018 Blood Pressure 1: 140/74 Code: 8480-6 BMI: 28.1 Code: 54783-5 Heart Rate 1: 87 bpm Height: 5' SpO2: 99% Weight: 144 lbs 02/24/2018 Blood Pressure 1: 130/62 Code: 8480-6 BMI: 28.9 Code: 28975-1 Heart Rate 1: 57 bpm Height: 5' SpO2: 99% Weight: 148 lbs 01/27/2018 Blood Pressure 1: 142/70 Code: 8480-6 BMI: 29.5 Code: 56347-2 Heart Rate 1: 61 bpm Height: 5' SpO2: 99% Weight: 151 lbs 11/25/2017 Blood Pressure 1: 148/72 Code: 8480-6 BMI: 30.9 Code: 38300-2 Heart Rate 1: 62 bpm Height: 5' SpO2: 98% Weight: 158 lbs 10/26/2017 Blood Pressure 1: 156/74 Code: 8480-6 BMI: 31.2 Code: 68982-4 Heart Rate 1: 71 bpm Height: 5' SpO2: 98% Weight: 160 lbs 10/11/2017 Blood Pressure 1: 128/70 Code: 8480-6 BMI: 30.9 Code: 80591-7 Heart Rate 1: 70 bpm Height: 5' SpO2: 95% Weight: 158 lbs 09/22/2017 Blood Pressure 1: 110/52 Code: 8480-6 BMI: 30.9 Code: 07472-7 Heart Rate 1: 72 bpm Height: 5' SpO2: 99% Weight: 158 lbs 07/06/2017 Blood Pressure 1: 120/85 Code: 8480-6 BMI: 31.4 Code: 97195-7 Heart Rate 1: 74 bpm Height: 5' SpO2: 92% Weight: 161 lbs 06/03/2017 Blood Pressure 1: 120/62 Code: 8480-6 BMI: 31.1 Code: 30705-7 Heart Rate 1: 73 bpm Height: 5' SpO2: 99% Weight: 159 lbs 05/12/2017 Blood Pressure 1: 132/68 Code: 8480-6 BMI: 32.4 Code: 60935-9 Heart Rate 1: 95 bpm Height: 5' SpO2: 97% Weight: 166 lbs 04/15/2017 Blood Pressure 1: 128/84 Code: 8480-6 BMI: 32.4 Code: 33780-6 Heart Rate 1: 62 bpm Height: 5' SpO2: 97% Weight: 166 lbs 03/19/2017 Blood Pressure 1: 112/60 Code: 8480-6 BMI: 32.0 Code: 03408-4 Height: 5' Weight: 164 lbs 02/03/2017 Blood Pressure 1: 128/76 Code: 8480-6 BMI: 33.4 Code: 78974-4 Heart Rate 1: 91 bpm Height: 5' SpO2: 99% Weight: 171 lbs 01/07/2017 Blood Pressure 1: 126/74 Code: 8480-6 BMI: 34.2 Code: 67449-0 Heart Rate 1: 83 bpm Height: 5' SpO2: 97% Weight: 175 lbs 12/17/2016 Blood Pressure 1: 122/72 Code: 8480-6 BMI: 34.0 Code: 77821-9 Heart Rate 1: 78 bpm Height: 5' SpO2: 97% Weight: 174 lbs 09/14/2016 Blood Pressure 1: 128/86 Code: 8480-6 BMI: 33.8 Code: 51759-0 Heart Rate 1: 88 bpm Height: 5' SpO2: 96% Weight: 173 lbs 06/18/2016 Blood Pressure 1: 12274 Code: 8480-6 BMI: 34.8 Code: 54306-4 Heart Rate 1: 78 bpm Height: 5' SpO2: 98% Weight: 178 lbs 04/16/2016 Blood Pressure 1: 134/68 Code: 8480-6 BMI: 35.0 Code: 01296-4 Heart Rate 1: 67 bpm Height: 5' SpO2: 97% Weight: 179 lbs 03/19/2016 Blood Pressure 1: 132/74 Code: 8480-6 BMI: 34.6 Code: 85705-6 Heart Rate 1: 74 bpm Height: 5' SpO2: 97% Weight: 177 lbs 11/14/2015 Blood Pressure 1: 132/70 Code: 8480-6 BMI: 35.2 Code: 89048-9 Heart Rate 1: 68 bpm Height: 5' Weight: 180 lbs 08/14/2015 Blood Pressure 1: 122/74 Code: 8480-6 BMI: 33.8 Code: 57636-5 Heart Rate 1: 73 bpm Height: 5' SpO2: 93% Weight: 173 lbs 07/17/2015 Blood Pressure 1: 138/78 Code: 8480-6 BMI: 34.0 Code: 89735-7 Heart Rate 1: 85 bpm Height: 5' SpO2: 97% Weight: 174 lbs 03/25/2015 Blood Pressure 1: 130/78 Code: 8480-6 BMI: 33.2 Code: 60448-5 Heart Rate 1: 77 bpm Height: 5' SpO2: 97% Weight: 170 lbs 12/04/2014 Blood Pressure 1: 120/74 Code: 8480-6 BMI: 35.4 Code: 24744-6 Heart Rate 1: 67 bpm Height: 5' SpO2: 94% Weight: 181 lbs 5 oz 08/14/2014 Blood Pressure 1: 132/68 Code: 8480-6 BMI: 32.1 Code: 55843-4 Heart Rate 1: 62 bpm Height: 5'3" [...] chr onic 01/27/2018 None hypertension Quality shea feliciano hypertension 01/27/2018 None hypertension Onset and Resolution [...] nausea 01/27/2018 when she came home from [facility] hypertension Blood Pressure Values not checking [...] Encounters Encounter Performer Loca tion Codes Date 80032 EST. PATIENT, LEVEL III Diagnosis: Right upper quadrant pain[ICD10: R10.11] Gardenia Nicole MD, [facility] CPT-4: 28472 04/27/2018 ([id number]) 56850 EST. P ATIENT, LEVEL IV Diagnosis: Essential (primary) hypertension[ICD10: I10] Diagnosis: Right upper quadrant pain[ICD10: R10.11] Mila Nicole MD, [facility] CPT-4: 08516 03/28/2018 ([id number]) 02767 EST. P ATIENT, LEVEL IV Diagnosis: Low back pain[ICD10: M54.5] Diagnosis: Dysuria[ICD10: R30.0] Diagnosis: Type 2 diabetes mellitus with hyperglycemia[ICD10: E11.65] Claudia Nicole MD, [facility] CPT-4: 33076 02/24/2018 [id number]) 54538 EST. P ATIENT, LEVEL IV Diagnosis: Type 2 diabetes mellitus with hyperglycemia[ICD10: E11.65] Diagnosis: Essential (primary) hypertension[ICD10: I10] Diagnosis: Major depressive disorder, recurrent, mild[ICD10: F33.0] Diagnosis: Generalized anxiety disorder[ICD10: F41.1] Claudia Nicole MD, [facility] CPT-4: 80223 01/27/2018 ([id number]) 50334 EST. P ATIENT, LEVEL IV Diagnosis: Type 2 diabetes mellitus with hyperglycemia[ICD10: E11.65] Diagnosis: Essential (primary) hypertension[ICD10: I10] Diagnosis: Encounter for immunization[ICD10: Z23] Diagnosis: Carpal tunnel syndrome, left upper limb[ICD10: G56.02] Claudia Nicole MD, [facility] CPT-4: 26037 11/25/2017 ([id number]) 88598 EST. P ATIENT, LEVEL III Diagnosis: Type 2 diabetes mellitus with hyperglycemia[ICD10: E11.65] Claudia Nicole MD, [facility] CPT-4: 77803 10/26/2017 ([id number]) Miscellaneou s no charge Diagnosis: Type 2 diabetes mellitus with hyperglycemia[ICD10: E11.65] Claudia Nicole MD, [facility] CPT-4: 25628 10/18/2017 ([id number]) 15548 EST. P ATIENT, LEVEL IV Diagnosis: Type 2 diabetes mellitus with diabetic autonomic (poly)neuropathy[ICD10: E11.43] Diagnosis: Essential (primary) hypertension[ICD10: I10] Mila Nicole MD, [facility] CPT-4: 31462 09/22/2017 ([id number]) 42689 EST. P ATIENT, LEVEL IV Diagnosis: Type 2 diabetes mellitus with hyperglycemia[ICD10: E11.65] Diagnosis: Paroxysmal atrial fibrillation[ICD10: I48.0] Diagnosis: Essential (primary) hypertension[ICD10: I10] Mila Nicole MD, [facility] CPT-4: 65485 07/06/2017 ([id number]) 22794 EST. P ATIENT, LEVEL IV Diagnosis: Essential (primary) hypertension[ICD10: I10] Diagnosis: Type 2 diabetes mellitus with hyperglycemia[ICD10: E11.65] Diagnosis: Paroxysmal atrial fibrillation[ICD10: I48.0] Claudia Nicole MD, [facility] CPT-4: 22133 06/03/2017 [id number] EST. PATIENT, LEVEL III Diagnosis: Generalized anxiety disorder[ICD10: F41.1] Diagnosis: Major depressive disorder, recurrent, moderate[ICD10: F33.1] Diagnosis: Paroxysmal tachycardia, unspecified[ICD10: I47.9] Gardenia Nicole MD, [facility] CPT-4: 86495 05/12/2017 ([id number]) 63635 EST. P ATIENT, LEVEL IV Diagnosis: Essential (primary) hypertension[ICD10: I10] Diagnosis: Cough[ICD10: R05] Diagnosis: Dysuria[ICD10: R30.0] Mila Nicole MD, [facility] CPT-4: 76447 04/15/2017 ([id number]) 77775 EST. P ATIENT, LEVEL IV Diagnosis: Type 2 diabetes mellitus with hyperglycemia[ICD10: E11.65] Diagnosis: Essential (primary) hypertension[ICD10: I10] Mila Nicole MD, [facility] CPT-4: 87071 03/19/2017 ([id number]) 34223 EST. P ATIENT, LEVEL III Diagnosis: Type 2 diabetes mellitus with hyperglycemia[ICD10: E11.65] Mila Nicole MD, [facility] CPT-4: 22928 02/03/2017 50838 EST. PATIENT, LEVEL IV Diagnosis: Generalized anxiety disorder[ICD10: F41.1] Diagnosis: Type 2 diabetes mellitus with hyperglycemia[ICD10: E11.65] Diagnosis: Essential (primary) hypertension[ICD10: I10] Gardenia Nicole MD, [facility] CPT-4: 47486 01/07/2017 ([id number]) 42584 EST. P ATIENT, LEVEL III Diagnosis: Type 2 diabetes mellitus with hyperglycemia[ICD10: E11.65] Diagnosis: Encounter for immunization[ICD10: Z23] Mila Nicole MD, [facility] CPT-4: 35771 12/17/2016 ([id number]) 27483 EST. P ATIENT, LEVEL IV Diagnosis: Type 2 diabetes mellitus with hyperglycemia[ICD10: E11.65] Diagnosis: Essential (primary) hypertension[ICD10: I10] Diagnosis: Major depressive disorder, recurrent, mild[ICD10: F33.0] Mila Nicole MD, [facility] CPT-4: 36775 09/14/2016 ([id number]) 32245 EST. 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 P ATIENT, LEVEL IV Diagnosis: Type 2 diabetes mellitus with hyperglycemia[ICD10: E11.65] Diagnosis: Essential (primary) hypertension[ICD10: I10] Mila Nicole MD, [facility] CPT-4: 55789 04/16/2016 ([id number]) 20797 EST. 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 P ATIENT, LEVEL IV Diagnosis: Type 2 diabetes mellitus with hyperglycemia[ICD10: E11.65] Diagnosis: Encounter for immunization[ICD10: Z23] Diagnosis: Essential (primary) hypertension[ICD10: I10] Mila Nicole MD, [facility] CPT-4: 54147 11/14/2015 ([id number]) 46176 EST. P ATIENT, LEVEL IV Diagnosis: Type 2 diabetes mellitus with hyperglycemia[ICD10: E11.65] Diagnosis: Essential (primary) hypertension[ICD10: I10] Diagnosis: Low back pain[ICD10: M54.5] Mila Nicole MD, [facility] CPT-4: 15599 08/14/2015 ([id number]) 48951 EST. P ATIENT, LEVEL IV Diagnosis: Type 2 diabetes mellitus with hyperglycemia[ICD10: E11.65] Diagnosis: Essential (primary) hypertension[ICD10: I10] Diagnosis: Hypothyroidism, unspecified[ICD10: E03.9] Mila Nicole MD, [facility] CPT-4: 52957 07/17/2015 ([id number]) 04366 EST. P ATIENT, LEVEL IV Diagnosis: Essential (primary) hypertension[ICD10: I10] Diagnosis: Type 2 diabetes mellitus with hyperglycemia[ICD10: E11.65] Diagnosis: Headache[ICD10: R51] Gardenia Nicole MD, [facility] CPT-4: 87163 03/25/2015 ([id number]) 94452 EST. P ATIENT, LEVEL IV Diagnosis: ESSENTIAL HYPERTENSION[ICD9: 401.9] Diagnosis: DIABETES TYPE II[ICD9: 250.00] Diagnosis: Aortic stenosis[ICD9: 424.1] Mila Nicole MD, [facility] CPT-4: 37084 12/04/2014 ([id number]) OFFICE VISI T, NEW - LEVEL 4 Diagnosis: ESSENTIAL HYPERTENSION[ICD9: 401.9] Diagnosis: Diabetes mellitus out of control[ICD9: 250.02] Mila Nicole MD, [facility] CPT-4: 32388 08/14/2014 Plan of Care Planned Activity Notes [...] concerns. 04/27/2018 Appointment: [phone] [facility] [place] [place] (10 min) Simple 04/27/2018 Patient Education: Patient Medication Summary Completed 04/27/2018 Appointment: [facility] [place] (15 min) Moderate 04/05/2018 Visit Plan: [...] current regimen. 03/28/2018 Appointment: [facility] [phone] [facility] [place] (15 min) Moderate 03/28/2018 Patient Education: Patient Medication Summary Completed 03/28/2018 Patient Education: Hypertension Completed 03/28/2018 Care Plan: ECHO EXAM OF ABDOMEN Pending 03/28/2018 Visit Plan: Low back pain-xray lumb ar spine Dysuria- improved-will culture urine [id number] changes today 02/24/2018 Appointment: [facility] Pruitt [facility] [phone] [facility] [phone] [place] (15 min) Moderate 02/24/2018 Patient Education: [...] current medications. 01/27/2018 Appointment: Claud[facility] Pruitt [facility] [phone] [facility] [phone] [place] (15 min) Moderate 01/27/2018 Patient Education: [...] any worse 11/25/2017 Appointment: Claudia Pruitt WPtel: [phone] (15 min) Moderate 11/25/2017 Patient Education: Patient Medication Summary Completed 11/25/2017 Appointment: Mil[facility] Nicole [facility]el[facility] (15 min) Moderate 10/28/2017 Visit Plan: [...] appt. 10/26/2017 Appointment: Claudia Pruitt WPtel: [phone] [phone] (15 min) Moderate 10/26/2017 Patient Education: Patient [...] plan. 10/11/2017 Appointment: [facility] Pruitt [phone] [facility] [phone] [place] (30 min) Complex 10/11/2017 Patient Education: [...] Completed 09/22/2017 App[facility]ment: [facility] [phone] [facility] [place] (15 min) Moderate 09/13/2017 Appointment: [facility] [phone] [facility] [place] (15 min) Moderate 09/07/2017 Visit [...] uncontrolled. 07/06/2017 Appointment: Mila Nicole WPtel: [phone] [facility] (15 min) Moderate 07/06/2017 Patient Education: Patient Medication Summary Completed 07/06/2017 Appointment: Mila Nicole WPtel: [phone] [facility] (15 min) Moderate 06/07/2017 Visit [...] controlled. 06/03/2017 Appointment: Claudia Pruitt WPtel: [phone] [phone] [place] (30 min) Complex 06/03/2017 Patient Education: [...] plan 05/12/2017 Appointment: Gardenia Shah [phone] [facility] [place] (30 min) Complex 05/12/2017 Patient Education: Patient Medication Summary Completed 05/12/2017 Visit Plan: Hypertension - well jenna carranza - continue with current medications, continue with [...] medication. 04/15/2017 Appointment: [facility] [phone] [facility] (15 min) Moderate 04/15/2017 Patient Education: Patient Medication Summary Completed 04/15/2017 Visit Plan: Hypertension - well jenna batresed - continue with current medications, continue with [...] daily. 03/19/2017 Appointment: Mila Nicole WPtel: [phone] [phone] (15 min) Moderate 03/19/2017 Patient Education: Patient Medication Summary Completed 03/19/2017 Appointment: [facility] [phone] [facility] (15 min) Moderate 02/24/2017 Visit Plan: [...] HS 02/03/2017 Appointment: [facility] [phone] [facility] (15 min) Moderate 02/03/2017 Patient Education: Patient [...] acute concerns. 01/07/2017 Appointment: Garden[facility] Shah [phone] [facility] [place] (30 min) Complex 01/07/2017 Patient Education: [...] to allow for greater blood glucose control. [id number], 02/2018 junior nordisk 12/17/2016 Appointment: [facility]el[facility] [phone] [facility] (15 min) Moderate 12/17/2016 Patient Education: Patient Medication Summary Completed 12/17/2016 Patient Education: Obesity Completed 12/17/2016 Appointment: [facility]el[facility] [phone] [facility] (15 min) Moderate 12/14/2016 Visit Plan: Diabetes [...] medications. 09/14/2016 Appointment: [facility] [phone] [facility] (15 min) Moderate 09/14/2016 Patient Education: Patient [...] home. 06/18/2016 Appointment: [facility] [phone] [facility] [place] (15 min) Moderate 06/18/2016 Patient [...] home. 04/16/2016 Appointment: Mila Nicole [facility]Ptel: [phone] [facility] (15 min) Moderate 04/16/2016 Patient Education: [...] gabapentin 03/19/2016 Appointment: [facility] Nicole [facility]Ptel: [phone] [facility] (15 min) Moderate 03/19/2016 Patient Education: [...] home. 11/14/2015 Appointment: Mil[facility] Nicole [facility]Ptel: [phone] [facility] (15 min) Moderate 11/14/2015 Patient Education: Patient [...] Appointment: Mila Nicole WPtel: [facility] [place] (15 min) Moderate 07/17/2015 Patient [...] Completed 03/25/2015 Appointment: [facility] Nicole [facility]Ptel: [phone] [facility] (15 min) Moderate 01/14/2015 Visit Plan: [...] control. 12/04/2014 Appointment: [facility]Ptel[facility] [phone] [facility] (15 min) Moderate 12/04/2014 Patient Education: [...] glucose control. 08/14/2014 Appointment: Mil[facility] Nicole [facility]Ptel: [phone] [facility] [place] (S[place] New Patient 08/14/2014 Patient [...] blood sugars to appt. . Hypertension - wel l controlled - [...] with any changes, questions, or concerns. . Follow up from ED - pt [...] readings are starting to become less controlled. Karl infection of vaginal tissue - stop invokana and start on diflucan treatment - check Hgba1c cut back on carbohyd rates in food [...] to allow for greater blood glucose control. [id number], 02/2018 Mindframe I think the entresto is causing you [...] IPRO results. Patient verbalized understanding of plan. CHECK LABS AND UA XRAY LUMBAR . Low back pain-xray lumbar spine Dysuria- improved-will culture urine CN-[id number]-hy changes today
--- OUTSIDE RECORDS SUMMARY | 2019-03-16 19:32 | XMS REPORT | CCD ---
Author Author Melinda Nicole Organization Mila Nicole MD, 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 Name Role Phone PP Unavailable CCM Unavailable Summary Purpose Interface Exchange Insurance Providers Payer name Policy type / Coverage type Covered republican ID Effective Begin Date Effective End Date WPS Medicare Part B Medicare Part B [id number] Unknown AARP Medicare Part B [id number] Unknown Family history Mother Diagnosis Age At [...] Unknown 3 08/14/[address]: 049436224 Never smoker 08/14/[address]: 323764503 Never drinks alcohol 08/14/2014 Allergies, Adverse Reactions, Alerts Substance Reaction Codes Entered Date Inactivated Date Status * OTHER REACTION - S EE ANSWER BOX Invokana, Victoza Unknown 03/19/2017 No Inactive Date Active Paxil has blurred vision RxNorm: 027184 08/14/2014 No Inactive Date Active Lipitor RxNorm: 64011 08/14/2014 No Inactive Date Active Past Medical [...] Date Stop Date Sta tus Fill Instructions Flagyl 500 mg tablet RxNorm: 517429 1 Tablet(s) PO TID 05/05/2018 05/14/2018 Active Flagyl 500 mg tablet RxNorm: 036609 1 Tablet(s) PO TID 05/05/2018 05/04/2018 Inactive Zetia 10 mg tablet RxNorm: 921700 1 Tablet(s) PO daily 03/28/2018 03/22/2019 Active tramadol 50 mg tablet RxNorm: 685560 1 Tablet(s) PO TID as needed 03/25/2018 No Stop Date Active fluticasone 50 mcg/a ctuation nasal spray,suspension RxNorm: 2776361 INSTILL ONE SPRAY IN EACH NOSTRILTWICE A DAY 03/16/2018 10/11/2018 Active Generic For:FLONASE SPR 0.05% 03/16/2018 8:50:59 AM Keflex 500 mg capsule RxNorm: 152894 1 Capsule(s) PO TID 02/11/2018 02/10/2018 Inactive Keflex 500 mg capsule RxNorm: 406073 1 Capsule(s) PO TID 02/11/2018 02/20/2018 Inactive metoprolol succinate ER 200 mg tablet,extended release 24 hr RxNorm: 427078 1 Tablet(s) PO daily 01/27/2018 No Stop Date Active Eliquis 2.5 mg tablet RxNorm: 5673862 1 Tablet(s) PO BID 01/27/2018 No Stop Date Active digoxin 125 mcg tablet RxNorm: 121326 1 Tablet(s) PO daily 01/27/2018 No Stop Date Active Basaglar KwikPen U-1 00 Insulin 100 unit/mL (3 mL) subcutaneous RxNorm: 2373049 20 Unit(s) SQ daily 11/25/2017 05/23/2018 Active UPDATE RX metformin 500 mg tablet RxNorm: 308490 1 Tablet(s) PO UD 1.5 in morning, noon a nd 1 at bedtime 10/28/2017 10/22/2018 Active Basaglar KwikPen U-1 00 Insulin 100 unit/mL (3 mL) subcutaneous RxNorm: 1529521 18 Unit(s) SQ daily 10/26/2017 11/24/2017 Inactive UPDATE RX levothyroxine 50 mcg tablet RxNorm: 486250 TAKE 1 TABLET BY MOUT H ONCE DAILY 10/15/2017 06/11/2018 Ac tive Generic For:SYNTHROID 50MCG TAB 018 9:59:00 AM escitalopram 10 mg t ablet RxNorm: 113007 1 Tablet(s) PO QPM 09/22/2017 09/16/2018 Active Generic For:LEXAPRO 5MG 01/07/2017 9:05 :43 AM Basaglar KwikPen U-1 00 Insulin 100 unit/mL (3 mL) subcutaneous RxNorm: 2221907 15 Unit(s) SQ daily 09/22/2017 10/25/2017 Inactive potassium chloride E R 20 mEq tablet,extended release RxNorm: 826073 1 Tablet(s) PO daily 06/22/2017 01/17/2018 Inactive Lantus Solostar U-10 0 Insulin 100 unit/mL (3 mL) subcutaneous pen RxNorm: 119267 10 Unit(s) SQ daily 06/08/2017 06/08/2017 Inactive Basaglar KwikPen U-1 00 Insulin 100 unit/mL (3 mL) subcutaneous RxNorm: 6991931 10 Unit(s) SQ daily 06/08/2017 06/07/2017 Inactive Basaglar KwikPen U-1 00 Insulin 100 unit/mL (3 mL) subcutaneous RxNorm: 2647457 10 Unit(s) SQ daily 06/08/2017 09/21/2017 Inactive Lexapro 5 mg tablet RxNorm: 770888 1 Tablet(s) PO daily 06/01/2017 11/27/2017 Inactive Lexapro 5 mg tablet RxNorm: 860231 1 Tablet(s) PO daily 05/12/2017 05/31/2017 Inactive bisoprolol 5 mg-hydr ochlorothiazide 6.25 mg tablet RxNorm: 599042 1 Tablet(s) PO BID 05/04/2017 06/02/2017 Inactive Keflex 500 mg capsule RxNorm: 688609 1 Capsule(s) PO QID 04/15/2017 04/21/2017 Inactive Lantus Solostar 100 unit/mL (3 mL) subcutaneous insulin pen RxNorm: 068937 10 Unit(s) SQ daily 02/03/2017 06/07/2017 Inactive levothyroxine 50 mcg tablet RxNorm: 212952 TAKE 1 TABLET BY MOUT H ONCE DAILY 02/01/2017 09/28/2017 In active Generic For:SYNTHROID 50MCG TAB 017 9:20:59 AM gabapentin 600 mg ta blet RxNorm: 818186 1 Capsule(s) PO TID 01/27/2017 01/21/2018 Inactive Lexapro 5 mg tablet RxNorm: 419351 TAKE 1 TABLET BY MOUTH AT BEDTIME 01/07/2017 09/21/2017 In active Generic For:LEXAPRO 5MG 01/07/2017 9:05 :43 AM Victoza 2-Dariusz 0.6 mg /0.1 mL (18 mg/3 mL) subcutaneous pen injector RxNorm: 160807 1.8 Milligram(s) SQ daily 12/17/2016 02/07/2017 Inactive Victoza 3-Dariusz 0.6 mg /0.1 mL (18 mg/3 mL) subcutaneous pen injector RxNorm: 494010 Milligram(s) SQ 12/17/2016 02/07/2017 Inactive Zetia 10 mg tablet RxNorm: 393503 1 Tablet(s) PO daily 11/17/2016 11/11/2017 Inactive fluticasone 50 mcg/a ctuation nasal spray,suspension RxNorm: 6777136 Weikert NASAL ONE SPRAY IN EACH NOSTRIL TWICE DAILY 09/28/2016 04/25/2017 Inactive Victoza 2-Dariusz 0.6 mg /0.1 mL (18 mg/3 mL) subcutaneous pen injector RxNorm: 529388 1.2 Milligram(s) SQ daily 09/14/2016 12/16/2016 Inactive Lexapro 5 mg tablet RxNorm: 790925 1 Tablet(s) PO QHS 09/14/2016 12/12/2016 Inactive metformin 500 mg tablet RxNorm: 882861 1 Tablet(s) PO UD 1.5 in morning, noon a nd 1 at bedtime 09/08/2016 09/02/2017 Inactive glimepiride 4 mg tablet RxNorm: 565349 TAKE 1 TABLET BY MOUTH ONCE DAILY 07/31/2016 09/13/2016 In active Generic For:*AMARYL 4MG 07/31/2016 9:02 :38 AM Victoza 2-Dariusz 0.6 mg /0.1 mL (18 mg/3 mL) subcutaneous pen injector RxNorm: 256203 1.2 Milligram(s) SQ daily 05/18/2016 09/13/2016 Inactive Victoza 2-Dariusz 0.6 mg /0.1 mL (18 mg/3 mL) subcutaneous pen injector RxNorm: 289588 1.2 Milligram(s) SQ daily 04/16/2016 05/17/2016 Inactive levothyroxine 50 mcg tablet RxNorm: 873091 TAKE 1 TABLET BY MOUT H ONCE DAILY 04/08/2016 12/03/2016 In active Generic For:SYNTHROID 50MCG TAB 017 9:05:40 AM levothyroxine 50 mcg tablet RxNorm: 145128 1 Tablet(s) PO daily TAKE 1 TABLET BY MOUTH ONCE DAILY 04/08/2016 12/03/2016 Inactive Generic For:SYNTHROID 50MCG TAB N O T I C E PRESCRIPTION PREVIOUSLY AUTHORIZED BY DOCTOR:HENRY BAIG bisoprolol 5 mg-hydr ochlorothiazide 6.25 mg tablet RxNorm: 963972 1 Tablet(s) PO BID 03/23/2016 03/17/2017 Inactive Victoza 2-Dariusz 0.6 mg /0.1 mL (18 mg/3 mL) subcutaneous pen injector RxNorm: 884890 0.6 Milligram(s) SQ daily 03/19/2016 04/15/2016 Inactive Lexapro 5 mg tablet RxNorm: 795756 1 Tablet(s) PO QHS 03/19/2016 06/16/2016 Inactive gabapentin 600 mg ta blet RxNorm: 508589 1 Capsule(s) PO TID 03/19/2016 01/26/2017 Inactive glimepiride 4 mg tablet RxNorm: 678541 1 Tablet(s) PO daily 12/09/2015 06/05/2016 Inactive Victoza 3-Dariusz 0.6 mg /0.1 mL (18 mg/3 mL) subcutaneous pen injector RxNorm: 510799 0.6 Milligram(s) SQ daily x2 weeks, then 1.2 mg SQ daily 12/02/2015 03/18/2016 Inactive metformin 500 mg tablet RxNorm: 152579 1 Tablet(s) PO UD 1.5 in morning, noon a nd 1 at bedtime 08/14/2015 08/07/2016 Inactive gabapentin 600 mg ta blet RxNorm: 868462 1 Capsule(s) PO TID S HE IS ONLY TAKING 1 QD 08/14/2015 03/18/2016 In active fluticasone 50 mcg/a ctuation nasal spray,suspension RxNorm: 050714 Weikert NASAL ONE SPRAY IN EACH NOSTRIL TWICE DAILY 07/26/2015 07/25/2015 Inactive fluticasone 50 mcg/a ctuation nasal spray,suspension RxNorm: 8710674 Weikert NASAL ONE SPRAY IN EACH NOSTRIL TWICE DAILY 07/26/2015 02/20/2016 Inactive bisoprolol 5 mg-hydr ochlorothiazide 6.25 mg tablet RxNorm: 255132 1 Tablet(s) PO daily 1 Tablet(s) PO BID 07/17/2015 01/12/2016 Inactive metformin 500 mg tablet RxNorm: 206064 1 Tablet(s) PO TID 1 Tablet(s) PO TID 07/17/2015 08/13/2015 In active Diflucan 100 mg tablet RxNorm: 711033 1 Tablet(s) PO daily 07/17/2015 07/21/2015 Inactive Zetia 10 mg tablet RxNorm: 245456 1 Tablet(s) PO daily 06/10/2015 06/03/2016 Inactive bisoprolol 5 mg-hydr ochlorothiazide 6.25 mg tablet RxNorm: 089417 1 Tablet(s) PO BID 04/18/2015 07/16/2015 Inactive metformin 500 mg tablet RxNorm: 188318 1 Tablet(s) PO TID 03/01/2015 06/28/2015 Inactive glimepiride 4 mg tablet RxNorm: 356579 1 Tablet(s) PO daily 01/31/2015 01/30/2015 Inactive levothyroxine 50 mcg tablet RxNorm: 687315 TAKE 1 TABLET BY MOUT H ONCE DAILY 01/31/2015 09/27/2015 In active Generic For:SYNTHROID 50MCG TAB N O T I C E PRESCRIPTION PREVIOUSLY AUTHORIZED BY DOCTOR:HENRY BAIG glimepiride 4 mg tablet RxNorm: 768902 1 Tablet(s) PO daily 01/31/2015 07/29/2015 Inactive Invokana 100 mg tablet RxNorm: 2174867 1 Tablet(s) PO daily 12/12/2014 07/16/2015 Inactive bisoprolol 5 mg-hydr ochlorothiazide 6.25 mg tablet RxNorm: 353008 1 Tablet(s) PO BID 08/27/2014 02/22/2015 Inactive metformin 500 mg tablet RxNorm: 218795 1 Tablet(s) PO TID 08/10/2014 12/07/2014 Inactive metformin 500 mg tablet RxNorm: 906808 1 Tablet(s) PO TID 08/10/2014 08/09/2014 Inactive Fish Oil 1,000 mg ca psule RxNorm: 1 Capsule(s) PO daily No Start Date Active Protonix 40 mg table t,delayed release RxNorm: 614342 1 Tablet(s) PO QAM No Start Date Active furosemide 40 mg tablet RxNorm: 547461 1 Tablet(s) PO daily No Start Date Active pen needle, diabetic 31 gauge x 1/6" RxNorm: Miscellaneous N o Start Date Active nitroglycerin 0.4 mg sublingual tablet RxNorm: 827204 1 Tablet(s) SL as nee ded chest pain No Start Date Active amlodipine 5 mg tablet RxNorm: 061919 1 Tablet(s) PO daily No Start Date Active Entresto 24 mg-26 mg tablet RxNorm: 1712081 1 Tablet(s) PO BID No Start Date Active aspirin 81 mg chewab le tablet RxNorm: 992411 1 Tablet(s) PO daily No Start Date 06/02/2017 Inactive Eliquis 5 mg tablet RxNorm: 3753390 1 Tablet(s) PO BID No Start Date 01/26/2018 Inactive bisoprolol-hydrochlo rothiazide oral RxNorm: [address] art Date 08/26/2014 Inactive levothyroxine 50 mcg tablet RxNorm: 461347 1 Tablet(s) PO daily No Start Date 01/30/2015 Inactive potassium chloride E R 20 mEq tablet,extended release RxNorm: 853019 1 Tablet(s) PO daily No Start Date 06/21/2017 Inactive digoxin 250 mcg tablet RxNorm: 114547 1 Tablet(s) PO daily No Start Date 01/26/2018 Inactive Invokana 100 mg tablet RxNorm: 6017892 1 Tablet(s) PO daily No Start Date 12/11/2014 Inactive tramadol 50 mg tablet RxNorm: 183990 1 Tablet(s) PO TID as needed No Start Date 03/22/2018 Inactive Victoza 3-Dariusz 0.6 mg /0.1 mL (18 mg/3 mL) subcutaneous pen injector RxNorm: 001257 0.6 Milligram(s) SQ daily x2 weeks, then 1.2 mg SQ daily No Start Date 12/01/2015 Inactive Effient 10 mg tablet RxNorm: 506204 1 Tablet(s) PO QAM No Start Date 01/26/2018 Inactive Zetia 10 mg tablet RxNorm: 125195 1 Tablet(s) PO BID No Start Date 03/18/2016 Inactive metoprolol succinate ER 100 mg tablet,extended release 24 hr RxNorm: 414811 1 Tablet(s) PO daily No Start Date 01/26/2018 Inactive gabapentin 300 mg ca psule RxNorm: 144869 1 Capsule(s) PO BID No Start Date 08/13/2015 Inactive Lasix 40 mg tablet RxNorm: 942591 1 Tablet(s) PO BID No Start Date 04/14/2017 Inactive Coreg 3.125 mg tablet RxNorm: 623829 1 Tablet(s) PO BID with meals No [...] then shipped to [facility] Follow Up 03/19/2017 stress test and then shipped to [place] diabetes mellitus 02/03/2017 headache 01/07/2017 diabetes mellitus 12/17/2016 diabetes mellitus 09/14/2016 diabetes mellitus 06/18/2016 medication follow up 04/16/2016 back pain 03/19/2016 back pain 11/14/2015 back pain 08/14/2015 diabetes mellitus 07/17/2015 Hospital Follow Up 03/25/2015 diabetes mellitus 12/04/2014 diabetes mellitus 08/14/2014 Results Observation Observation Code Item Item Code Result Date Culture Urine [id number] URI NE CULTURE SEE NOTES 02/28/2018 Urine [...] 28.8 pg 02/24/2018 Cbc With Differential Ord2 Perry% 5.7 % 02/24/2018 Cbc With Differential Ord2 [...] 1.57 K/ul 02/24/2018 Cbc With Differential Ord2 Perry ABS# 0.4 K/ul 02/24/2018 Cbc With Differential Ord2 Eos ABS# 0.1 K/ul 02/24/2018 Cbc With Differential Ord2 Baso ABS# 0.0 K/ul 02/24/2018 Comp Metabolic Bgr715 NA 138 mEq/L 02/24/2018 Comp Metabolic Dwu514 K 4.4 mEq/L 02/24/2018 Comp Metabolic Azb623 CL 100 mEq/L 02/24/2018 Comp Metabolic Qzr984 CO2 27.0 mEq/L 02/24/2018 Comp Metabolic Xyv767 AN ION GAP 15 02/24/2018 Comp Metabolic Huq391 GL UCOSE 98 mg/dL 02/24/2018 Comp Metabolic Bha304 Cr eat 1.0 mg/dL 02/24/2018 Comp Metabolic Ytf771 eG FR 55 ml/min/1.73m2 02/24 Comp Metabolic Ixn775 BUN 25 mg/dL 02/24/2018 Comp Metabolic Mmf302 B/ C Ratio 24.3 Ratio 02/24/2018 Comp Metabolic Zdp252 CA LCIUM 9.4 mg/dL 02/24/2018 Comp Metabolic Nzz313 AL K PHOS 46 U/L 02/24/2018 Comp Metabolic Izx340 T(SGOT) 13 U/L 02/24/2018 Comp Metabolic Mdl308 AL T(SGPT) 12 U/L 02/24/2018 Comp Metabolic Asg237 BI LI T 0.4 mg/dL 02/24/2018 Comp Metabolic Cuh599 AL BUMIN 4.5 g/dL 02/24/2018 Comp Metabolic Fwz143 TP RO 6.6 g/dL 02/24/2018 Comp Metabolic Oti607 GL OB 2.1 g/dL 02/24/2018 Comp Metabolic Ebw096 A/ G Ratio 2.1 Ratio 02/24/2018 Comp Metabolic Qns535 Os mo 280 mOsmo 02/24/2018 Culture Urine [id number] URI NE CULTURE SEE NOTES 02/11/2018 Culture Urine [id number] Con tinued Results 02/11/2018 Urine Culture Ucult Comp lete >100,000 col/ml aerobic grow th sent to ref lab 02/08/2018 %Hba1C Fkf455 % HbA1c 94987-2 6.8 % 01/12/2018 %Hba1C Uyb005 Gluc Ave 148 mg/dL 01/12/2018 Metabolic Ord15 [...] 89.9 fl 01/11/2018 Cbc With Differential Ord2 Perry% 7.8 % 01/11/2018 Cbc With Differential Ord2 [...] 1.70 K/ul 01/11/2018 Cbc With Differential Ord2 Perry ABS# 0.4 K/ul 01/11/2018 Cbc With Differential Ord2 Eos ABS# 0.1 K/ul 01/11/2018 Cbc With Differential Ord2 Baso ABS# 0.0 K/ul 01/11/2018 Magnesium Ord90 Mag 1.7 mg/dL 01/11/2018 Test(s) Not Perfromed [id number] Test(s) Not Performed Test(s) Not Performed. See Below: 09/20/2017 Test(s) Not Perfromed [id number] TEST NAME BNP 09/20/2017 Test(s) Not Perfromed [id number] Rejection Reason Patient Refused due to lack of coving diganosis 09/20/2017 Test(s) Not Perfromed [id number] COMMENT Dorita Notified 11/2017 Test(s) Not Perfromed [id number] Operating Manager Miguel Mclaughlin 09/20/2017 B Type Natriuretic Peptide Dek1418 B-SUBSTANCE ABUSE SPECIALIST 889.00 pg/ml 8 Cbc With Differential Ord2 WBC 5.72 K/ul 09/20/2017 Cbc With Differential Ord2 RBC 3.88 M/ul 09/20/2017 Cbc With Differential Ord2 HGB 11.2 g/dl 09/20/2017 Cbc With Differential Ord2 Neut% 62.4 % 09/20/2017 Cbc With Differential Ord2 HCT 35.0 % 09/20/2017 Cbc With Differential Ord2 Lymph% 29.4 % 09/20/2017 Cbc With Differential Ord2 MCV 90.2 fl 09/20/2017 Cbc With Differential Ord2 Perry% 5.6 % 09/20/2017 Cbc With Differential Ord2 [...] 1.68 K/ul 09/20/2017 Cbc With Differential Ord2 Perry ABS# 0.3 K/ul 09/20/2017 Cbc With Differential Ord2 Eos ABS# 0.1 K/ul 09/20/2017 Cbc With Differential Ord2 Baso ABS# 0.0 K/ul 09/20/2017 %Hba1C Jls385 % HbA1c 08561-8 7.9 % 09/20/2017 %Hba1C Tlt416 Gluc Ave 180 mg/dL 09/20/2017 Magnesium Ord90 [...] 28.3 pg 07/07/2017 Cbc With Differential Ord2 Perry% 7.9 % 07/07/2017 Cbc With Differential Ord2 [...] 1.34 K/ul 07/07/2017 Cbc With Differential Ord2 Perry ABS# 0.4 K/ul 07/07/2017 Cbc With Differential Ord2 Eos ABS# 0.1 K/ul 07/07/2017 Cbc With Differential Ord2 Baso ABS# 0.0 K/ul 07/07/2017 Comp Metabolic Axs744 NA 142 mEq/L 07/07/2017 Comp Metabolic Szb194 K 4.3 mEq/L 07/07/2017 Comp Metabolic Liq186 CL 105 mEq/L 07/07/2017 Comp Metabolic Jci726 CO2 28.0 mEq/L 07/07/2017 Comp Metabolic Uqr171 AN ION GAP 13 07/07/2017 Comp Metabolic Tnc514 GL UCOSE 197 mg/dL 07/07/2017 Comp Metabolic Sdb244 Cr eat 1.1 mg/dL 07/07/2017 Comp Metabolic Thp988 eG FR 51 ml/min/1.73m2 07/07 Comp Metabolic Cmm900 BUN 21 mg/dL 07/07/2017 Comp Metabolic Vkk117 B/ C Ratio 18.9 Ratio 07/07/2017 Comp Metabolic Ohp871 CA LCIUM 8.9 mg/dL 07/07/2017 Comp Metabolic Rjd079 AL K PHOS 51 U/L 07/07/2017 Comp Metabolic Aml180 T(SGOT) 11 U/L 07/07/2017 Comp Metabolic Fvx525 AL T(SGPT) 11 U/L 07/07/2017 Comp Metabolic Jjz790 BI LI T 0.3 mg/dL 07/07/2017 Comp Metabolic Wrq709 AL BUMIN 4.2 g/dL 07/07/2017 Comp Metabolic Tfi071 TP RO 6.0 g/dL 07/07/2017 Comp Metabolic Qba859 GL OB 1.8 g/dL 07/07/2017 Comp Metabolic Mwf430 A/ G Ratio 2.3 Ratio 07/07/2017 Comp Metabolic Bhf683 Os mo 292 mOsmo 07/07/2017 Digoxin Ord9 DIGOXIN 1.3 NG/ML 07/07/2017 Tsh Ord6 TSH (3rd IS) 2.19 uIU/mL 07/07/2017 B Type Natriuretic Peptide Ftr1105 B-SUBSTANCE ABUSE SPECIALIST 801.00 pg/ml 8 Culture Urine [id number] URI NE CULTURE SEE NOTES 04/19/2017 Culture Urine [id number] Con tinued Results 04/19/2017 Urine Culture Ucult Comp lete >100,000 col/ml aerobic grow th sent to ref lab 04/16/2017 Comp Metabolic Qed620 NA 140 mEq/L 01/26/2017 Comp Metabolic Cwb406 K 4.6 mEq/L 01/26/2017 Comp Metabolic Vav067 CL 102 mEq/L 01/26/2017 Comp Metabolic Doe088 CO2 28.0 mEq/L 01/26/2017 Comp Metabolic Xeh632 AN ION GAP 15 01/26/2017 Comp Metabolic Vfl432 GL UCOSE 173 mg/dL 01/26/2017 Comp Metabolic Tlb539 Cr eat 1.0 mg/dL 01/26/2017 Comp Metabolic Gan026 eG FR 56 ml/min/1.73m2 01/26 Comp Metabolic Eqe514 BUN 23 mg/dL 01/26/2017 Comp Metabolic Err144 B/ C Ratio 22.5 Ratio 01/26/2017 Comp Metabolic Jgk955 CA LCIUM 9.4 mg/dL 01/26/2017 Comp Metabolic Mte904 AL K PHOS 52 U/L 01/26/2017 Comp Metabolic Tsp743 T(SGOT) 12 U/L 01/26/2017 Comp Metabolic Vim866 AL T(SGPT) 12 U/L 01/26/2017 Comp Metabolic Jwl941 BI LI T 0.5 mg/dL 01/26/2017 Comp Metabolic Ist820 AL BUMIN 4.4 g/dL 01/26/2017 Comp Metabolic Vaa051 TP RO 6.5 g/dL 01/26/2017 Comp Metabolic Qlq992 GL OB 2.1 g/dL 01/26/2017 Comp Metabolic Trg000 A/ G Ratio 2.1 Ratio 01/26/2017 Comp Metabolic Yyh987 Os mo 287 mOsmo 01/26/2017 Cbc With [...] 29.2 pg 01/26/2017 Cbc With Differential Ord2 Perry% 4.9 % 01/26/2017 Cbc With Differential Ord2 [...] 1.75 K/ul 01/26/2017 Cbc With Differential Ord2 Perry ABS# 0.4 K/ul 01/26/2017 Cbc With Differential Ord2 Eos ABS# 0.1 K/ul 01/26/2017 Cbc With Differential Ord2 Baso ABS# 0.0 K/ul 01/26/2017 %Hba1C Lzv526 % HbA1c 62277-8 7.8 % 01/26/2017 %Hba1C Nms497 Gluc Ave 177 mg/dL 01/26/2017 Lipid Ord30 CHOL 239 mg/dL 01/26/2017 Lipid Ord30 HDL 40.0 mg/dl 01/26/2017 Lipid Ord30 TRIG 325 mg/dL 01/26/2017 Lipid Ord30 LDL 134 mg/dL 01/26/2017 Lipid Ord30 C/HDL 6.0 Ratio 01/26/2017 Free T4 Wnr604 FREE T4 0.95 ng/dL 01/26/2017 Tsh Ord6 [...] Metabolic Ord15 CALCIUM 9.0 mg/dL 09/08/2016 %Hba1C Evf436 % HbA1c 14625-3 7.5 % 09/08/2016 %Hba1C Ytm744 Gluc Ave 169 mg/dL 09/08/2016 Tsh Ord6 hTSH II 2.64 uIU/mL 03/13/2016 %Hba1C Plb885 % HbA1c 67732-1 8.2 % 03/13/2016 %Hba1C Opt357 Gluc Ave 189 mg/dL 03/13/2016 Lipid Ord30 CHOL 233 mg/dL 03/13/2016 Lipid Ord30 HDL 46.0 mg/dl 03/13/2016 Lipid Ord30 TRIG 276 mg/dL 03/13/2016 Lipid Ord30 LDL 132 mg/dL 03/13/2016 Lipid Ord30 C/HDL 5.1 Ratio 03/13/2016 Free T4 Ncn910 FREE T4 0.94 ng/dL 03/13/2016 Cbc With [...] 29.5 % 03/13/2016 Cbc With Differential Ord2 Perry% 6.1 % 03/13/2016 Cbc With Differential Ord2 [...] 1.63 K/ul 03/13/2016 Cbc With Differential Ord2 Perry ABS# 0.3 K/ul 03/13/2016 Cbc With Differential Ord2 Eos ABS# 0.1 K/ul 03/13/2016 Cbc With Differential Ord2 Baso ABS# 0.0 K/ul 03/13/2016 Comp Metabolic Lem267 NA 139 mEq/L 03/13/2016 Comp Metabolic Gmb557 K 4.3 mEq/L 03/13/2016 Comp Metabolic Ncq447 CL 103 mEq/L 03/13/2016 Comp Metabolic Frr477 CO2 28.0 mEq/L 03/13/2016 Comp Metabolic Qjz605 AN ION GAP 12 03/13/2016 Comp Metabolic Gno848 GL UCOSE 200 mg/dL 03/13/2016 Comp Metabolic Jhn190 Cr eat 0.9 mg/dL 03/13/2016 Comp Metabolic Zap138 eG FR 69 ml/min/1.73m2 03/13 Comp Metabolic Fge856 BUN 19 mg/dL 03/13/2016 Comp Metabolic Qyb066 B/ C Ratio 22.4 Ratio 03/13/2016 Comp Metabolic Pqx592 CA LCIUM 9.0 mg/dL 03/13/2016 Comp Metabolic Dtd042 AL K PHOS 57 U/L 03/13/2016 Comp Metabolic Cok534 T(SGOT) 13 U/L 03/13/2016 Comp Metabolic Jes503 AL T(SGPT) 16 U/L 03/13/2016 Comp Metabolic Ask780 BI LI T 0.4 mg/dL 03/13/2016 Comp Metabolic Uyr306 AL BUMIN 4.2 g/dL 03/13/2016 Comp Metabolic Etk488 TP RO 6.3 g/dL 03/13/2016 Comp Metabolic Uua623 GL OB 2.1 g/dL 03/13/2016 Comp Metabolic Vlm918 A/ G Ratio 2.0 Ratio 03/13/2016 Comp Metabolic Rku287 Os mo 285 mOsmo 03/13/2016 %Hba1C Zyg079 % HbA1c 05563-4 8.3 % 11/14/2015 %Hba1C Rod096 Gluc Ave 192 mg/dL 11/14/2015 Lipid Ord30 CHOL 210 mg/dL 07/19/2015 Lipid Ord30 HDL 43.0 mg/dl 07/19/2015 Lipid Ord30 TRIG 311 mg/dL 07/19/2015 Lipid Ord30 LDL 105 mg/dL 07/19/2015 Lipid Ord30 C/HDL 4.9 Ratio 07/19/2015 %Hba1C Vpm219 % HbA1c 11413-5 7.6 % 07/19/2015 %Hba1C Yjk137 Gluc Ave 171 mg/dL 07/19/2015 Cbc With [...] 28.8 pg 07/19/2015 Cbc With Differential Ord2 Perry% 6.1 % 07/19/2015 Cbc With Differential Ord2 [...] 1.63 K/ul 07/19/2015 Cbc With Differential Ord2 Perry ABS# 0.3 K/ul 07/19/2015 Cbc With Differential Ord2 Eos ABS# 0.1 K/ul 07/19/2015 Cbc With Differential Ord2 Baso ABS# 0.0 K/ul 07/19/2015 Cbc With Differential Ord2 New Analyzer Notice Please note new ref ranges s tarting 03-27-2015 due to implemntation of new five part differential hematolgy analyzer. 07/19/2015 Comp Metabolic Fmq171 NA 138 mEq/L 07/19/2015 Comp Metabolic Vnq847 K 4.3 mEq/L 07/19/2015 Comp Metabolic Fwn474 CL 100 mEq/L 07/19/2015 Comp Metabolic Ocd461 CO2 33.0 mEq/L 07/19/2015 Comp Metabolic Nqh093 AN ION GAP 9 07/19/2015 Comp Metabolic Hpu994 GL UCOSE 149 mg/dL 07/19/2015 Comp Metabolic Nqn090 Cr eat 0.9 mg/dL 07/19/2015 Comp Metabolic Kfp919 eG FR 62 ml/min/1.73m2 07/18 Comp Metabolic Mrc394 BUN 19 mg/dL 07/19/2015 Comp Metabolic Dxn872 B/ C Ratio 20.2 Ratio 07/19/2015 Comp Metabolic Xbf798 CA LCIUM 9.5 mg/dL 07/19/2015 Comp Metabolic Scj160 AL K PHOS 52 U/L 07/19/2015 Comp Metabolic Gyf076 T(SGOT) 15 U/L 07/19/2015 Comp Metabolic Ghr082 AL T(SGPT) 14 U/L 07/19/2015 Comp Metabolic Ctj927 BI LI T 0.5 mg/dL 07/19/2015 Comp Metabolic Rqc651 AL BUMIN 4.4 g/dL 07/19/2015 Comp Metabolic Rvw239 TP RO 6.4 g/dL 07/19/2015 Comp Metabolic Yee398 GL OB 2.0 g/dL 07/19/2015 Comp Metabolic Phj545 A/ G Ratio 2.2 Ratio 07/19/2015 Comp Metabolic Syb966 Os mo 281 mOsmo 07/19/2015 Free T4 Ngw567 FREE T4 0.92 ng/dL 07/19/2015 Tsh Ord6 hTSH II 1.95 uIU/mL 07/19/2015 Microalbumin Phe127 Micr oAlb 0.4 mg/dL 07/19/2015 Comp Metabolic Utz339 NA 137 mEq/L 12/04/2014 Comp Metabolic Qfg484 K 4.0 mEq/L 12/04/2014 Comp Metabolic Swh364 CL 100 mEq/L 12/04/2014 Comp Metabolic Rig248 CO2 29.0 mEq/L 12/04/2014 Comp Metabolic Hbx619 AN ION GAP 12 12/04/2014 Comp Metabolic Vli996 GL UCOSE 171 mg/dL 12/04/2014 Comp Metabolic Bzj422 Cr eat 1.0 mg/dL 12/04/2014 Comp Metabolic Bhr013 eG FR 60 ml/min/1.73m2 12/04 Comp Metabolic Nue922 BUN 25 mg/dL 12/04/2014 Comp Metabolic Knf097 B/ C Ratio 25.8 Ratio 12/04/2014 Comp Metabolic Tiy577 CA LCIUM 9.4 mg/dL 12/04/2014 Comp Metabolic Dhn296 AL K PHOS 60 U/L 12/04/2014 Comp Metabolic Vqx411 T(SGOT) 13 U/L 12/04/2014 Comp Metabolic Nyo839 AL T(SGPT) 17 U/L 12/04/2014 Comp Metabolic Ois582 BI LI T 0.4 mg/dL 12/04/2014 Comp Metabolic Wgp474 AL BUMIN 4.4 g/dL 12/04/2014 Comp Metabolic Zxe564 TP RO 6.9 g/dL 12/04/2014 Comp Metabolic Iqq513 GL OB 2.5 g/dL 12/04/2014 Comp Metabolic Hqk038 A/ G Ratio 1.8 Ratio 12/04/2014 Comp Metabolic Exe299 Os mo 282 mOsmo 12/04/2014 Tsh Ord6 hTSH II 1.78 uIU/mL 12/04/2014 %Hba1C Wkd224 % HbA1c 02426-4 8.3 % 12/04/2014 %Hba1C Bho097 Gluc Ave 192 mg/dL 12/04/2014 Free T4 Yzn129 FREE T4 0.85 ng/dL 12/04/2014 Lipid Ord30 [...] 12/17/2016 Musculoskeletal No myalgias 12/17/2016 Psychiatric anxiety 100 07/2016 Psychiatric depression 1 Constitutional No recent [...] accomodation 04/27/2018 None Full Exam - General 1995 Ears/Nose/Throat lips/teeth/gingiva Overall: benign lips 04/27/2018 None Full Exam - General 1995 Ears/Nose/Throat [...] Date URINALYSIS NONAUTO W /O SCOPE CPT-4: 60631 04/28/2018 URINALYSIS NONAUTO W /O SCOPE CPT-4: 72416 02/24/2018 URINALYSIS NONAUTO W /O SCOPE CPT-4: 84143 02/07/2018 ADMIN INFLUENZA VIRU S VAC CPT-4: G0008 11/25/2017 FLU VAC NO PRSV 4 VA L 3 YRS+ CPT-4: 50197 11/25/2017 GLUC MONITOR CONT PH YS I&R CPT-4: 34207 10/26/2017 GLUCOSE MONITORING CONT CPT-4: 41137 10/11/2017 URINALYSIS NONAUTO W /O SCOPE CPT-4: 71417 04/15/2017 FLU VAC NO PRSV 4 VA L 3 YRS+ CPT-4: 96362 12/17/2016 ADMIN INFLUENZA VIRU S VAC CPT-4: G0008 12/17/2016 FLU VACC PRSV FREE I NC ANTIG Formatting Model/CDA Sections, Assigned to/eNry Daniels CPT-4: 35024Qelchtx 11/14/2015 ADMIN INFLUENZA VIRU S VAC CPT-4: G0008 11/14/2015 ADMIN INFLUENZA VIRU S VAC Formatting Model/CDA Sections, Assigned to/Nery Daniels CPT-4: [id number] 12/04/2014 FLU VACC 4 ANABELLE 3 YRS PLUS IM SNOMED CT: [id number] CPT-4: 64273 12/04/2014 Vital Signs Date Vital 04/27/2018 Blood Pressure 1: 118/44 Code: 8480-6 BMI: 28.3 Code: 64110-1 Heart Rate 1: 77 bpm Height: 5' SpO2: 99% Weight: 145 lbs 03/28/2018 Blood Pressure 1: 140/74 Code: 8480-6 BMI: 28.1 Code: 91096-2 Heart Rate 1: 87 bpm Height: 5' SpO2: 99% Weight: 144 lbs 02/24/2018 Blood Pressure 1: 130/62 Code: 8480-6 BMI: 28.9 Code: 27782-4 Heart Rate 1: 57 bpm Height: 5' SpO2: 99% Weight: 148 lbs 01/27/2018 Blood Pressure 1: 142/70 Code: 8480-6 BMI: 29.5 Code: 49270-1 Heart Rate 1: 61 bpm Height: 5' SpO2: 99% Weight: 151 lbs 11/25/2017 Blood Pressure 1: 148/72 Code: 8480-6 BMI: 30.9 Code: 42340-1 Heart Rate 1: 62 bpm Height: 5' SpO2: 98% Weight: 158 lbs 10/26/2017 Blood Pressure 1: 156/74 Code: 8480-6 BMI: 31.2 Code: 97166-0 Heart Rate 1: 71 bpm Height: 5' SpO2: 98% Weight: 160 lbs 10/11/2017 Blood Pressure 1: 128/70 Code: 8480-6 BMI: 30.9 Code: 99638-5 Heart Rate 1: 70 bpm Height: 5' SpO2: 95% Weight: 158 lbs 09/22/2017 Blood Pressure 1: 110/52 Code: 8480-6 BMI: 30.9 Code: 22439-7 Heart Rate 1: 72 bpm Height: 5' SpO2: 99% Weight: 158 lbs 07/06/2017 Blood Pressure 1: 120/85 Code: 8480-6 BMI: 31.4 Code: 91915-3 Heart Rate 1: 74 bpm Height: 5' SpO2: 92% Weight: 161 lbs 06/03/2017 Blood Pressure 1: 120/62 Code: 8480-6 BMI: 31.1 Code: 19168-2 Heart Rate 1: 73 bpm Height: 5' SpO2: 99% Weight: 159 lbs 05/12/2017 Blood Pressure 1: 132/68 Code: 8480-6 BMI: 32.4 Code: 21983-9 Heart Rate 1: 95 bpm Height: 5' SpO2: 97% Weight: 166 lbs 04/15/2017 Blood Pressure 1: 128/84 Code: 8480-6 BMI: 32.4 Code: 05284-2 Heart Rate 1: 62 bpm Height: 5' SpO2: 97% Weight: 166 lbs 03/19/2017 Blood Pressure 1: 112/60 Code: 8480-6 BMI: 32.0 Code: 09294-5 Height: 5' Weight: 164 lbs 02/03/2017 Blood Pressure 1: 128/76 Code: 8480-6 BMI: 33.4 Code: 26934-3 Heart Rate 1: 91 bpm Height: 5' SpO2: 99% Weight: 171 lbs 01/07/2017 Blood Pressure 1: 126/74 Code: 8480-6 BMI: 34.2 Code: 17625-4 Heart Rate 1: 83 bpm Height: 5' SpO2: 97% Weight: 175 lbs 12/17/2016 Blood Pressure 1: 122/72 Code: 8480-6 BMI: 34.0 Code: 21128-9 Heart Rate 1: 78 bpm Height: 5' SpO2: 97% Weight: 174 lbs 09/14/2016 Blood Pressure 1: 128/86 Code: 8480-6 BMI: 33.8 Code: 54687-8 Heart Rate 1: 88 bpm Height: 5' SpO2: 96% Weight: 173 lbs 06/18/2016 Blood Pressure 1: 122/74 Code: 8480-6 BMI: 34.8 Code: 81601-4 Heart Rate 1: 78 bpm Height: 5' SpO2: 98% Weight: 178 lbs 04/16/2016 Blood Pressure 1: 134/68 Code: 8480-6 BMI: 35.0 Code: 72580-9 Heart Rate 1: 67 bpm Height: 5' SpO2: 97% Weight: 179 lbs 03/19/2016 Blood Pressure 1: 132/74 Code: 8480-6 BMI: 34.6 Code: 70420-7 Heart Rate 1: 74 bpm Height: 5' SpO2: 97% Weight: 177 lbs 11/14/2015 Blood Pressure 1: 132/70 Code: 8480-6 BMI: 35.2 Code: 98379-3 Heart Rate 1: 68 bpm Height: 5' Weight: 180 lbs 08/14/2015 Blood Pressure 1: 122/74 Code: 8480-6 BMI: 33.8 Code: 13193-5 Heart Rate 1: 73 bpm Height: 5' SpO2: 93% Weight: 173 lbs 07/17/2015 Blood Pressure 1: 138/78 Code: 8480-6 BMI: 34.0 Code: 68037-5 Heart Rate 1: 85 bpm Height: 5' SpO2: 97% Weight: 174 lbs 03/25/2015 Blood Pressure 1: 130/78 Code: 8480-6 BMI: 33.2 Code: 63933-9 Heart Rate 1: 77 bpm Height: 5' SpO2: 97% Weight: 170 lbs 12/04/2014 Blood Pressure 1: 120/74 Code: 8480-6 BMI: 35.4 Code: 52125-3 Heart Rate 1: 67 bpm Height: 5' SpO2: 94% Weight: 181 lbs 5 oz 08/14/2014 Blood Pressure 1: 132/68 Code: 8480-6 BMI: 32.1 Code: 17841-4 Heart Rate 1: 62 bpm Height: 5'3" [...] nausea 01/27/2018 when she came home from [facility] hypertension Blood Pressure Values not checking blood [...] 11/25/2017 None wrist pain Location on t left 11/25/2017 None wrist pain Quality acute [...] Encounters Encounter Performer Loca tion Codes Date 92103 EST. PATIENT, LEVEL III Diagnosis: Right upper quadrant pain[ICD10: R10.11] Gardenia Nicole MD, [facility] CPT-4: 89996 04/27/2018 ([id number] 80620 EST. P ATIENT, LEVEL IV Diagnosis: Essential (primary) hypertension[ICD10: I10] Diagnosis: Right upper quadrant pain[ICD10: R10.11] Mila Nicole MD, [facility] CPT-4: 28420 03/28/2018 ([id number]) 52147 EST. P ATIENT, LEVEL IV Diagnosis: Low back pain[ICD10: M54.5] Diagnosis: Dysuria[ICD10: R30.0] Diagnosis: Type 2 diabetes mellitus with hyperglycemia[ICD10: E11.65] Claudia Nicole MD, [facility] CPT-4: 34088 02/24/2018 ([id number] 48050 EST. P ATIENT, LEVEL IV Diagnosis: Type 2 diabetes mellitus with hyperglycemia[ICD10: E11.65] Diagnosis: Essential (primary) hypertension[ICD10: I10] Diagnosis: Major depressive disorder, recurrent, mild[ICD10: F33.0] Diagnosis: Generalized anxiety disorder[ICD10: F41.1] Claudia Nicole MD, [facility] CPT-4: 70284 01/27/2018 ([id number] 95424 EST. P ATIENT, LEVEL IV Diagnosis: Type 2 diabetes mellitus with hyperglycemia[ICD10: E11.65] Diagnosis: Essential (primary) hypertension[ICD10: I10] Diagnosis: Encounter for immunization[ICD10: Z23] Diagnosis: Carpal tunnel syndrome, left upper limb[ICD10: G56.02] Claudia Nicole MD, [facility] CPT-4: 03752 11/25/2017 ([id number]) 51002 EST. P ATIENT, LEVEL III Diagnosis: Type 2 diabetes mellitus with hyperglycemia[ICD10: E11.65] Claudia Nicole MD, [facility] CPT-4: 18562 10/26/2017 ([id number]) Miscellaneou s no charge Diagnosis: Type 2 diabetes mellitus with hyperglycemia[ICD10: E11.65] Claudia Nicole MD, [facility] CPT-4: 68811 10/18/2017 ([id number]) 36749 EST. P ATIENT, LEVEL IV Diagnosis: Type 2 diabetes mellitus with diabetic autonomic (poly)neuropathy[ICD10: E11.43] Diagnosis: Essential (primary) hypertension[ICD10: I10] Mila Nicole MD, [facility] CPT-4: 72677 09/22/2017 ([id number]) 65532 EST. P ATIENT, LEVEL IV Diagnosis: Type 2 diabetes mellitus with hyperglycemia[ICD10: E11.65] Diagnosis: Paroxysmal atrial fibrillation[ICD10: I48.0] Diagnosis: Essential (primary) hypertension[ICD10: I10] Mila Nicole MD, [facility] CPT-4: 14106 07/06/2017 ([id number]) 13665 EST. P ATIENT, LEVEL IV Diagnosis: Essential (primary) hypertension[ICD10: I10] Diagnosis: Type 2 diabetes mellitus with hyperglycemia[ICD10: E11.65] Diagnosis: Paroxysmal atrial fibrillation[ICD10: I48.0] Claudia Nicole MD, [facility] CPT-4: 76207 06/03/2017 30359 EST. PATIENT, LEVEL III Diagnosis: Generalized anxiety disorder[ICD10: F41.1] Diagnosis: Major depressive disorder, recurrent, moderate[ICD10: F33.1] Diagnosis: Paroxysmal tachycardia, unspecified[ICD10: I47.9] Gardenia Nicole MD, [facility] CPT-4: 71999 05/12/2017 ([id number]) 47241 EST. P ATIENT, LEVEL IV Diagnosis: Essential (primary) hypertension[ICD10: I10] Diagnosis: Cough[ICD10: R05] Diagnosis: Dysuria[ICD10: R30.0] Mila Nicole MD, [facility] CPT-4: 14076 04/15/2017 ([id number]) 51363 EST. P ATIENT, LEVEL IV Diagnosis: Type 2 diabetes mellitus with hyperglycemia[ICD10: E11.65] Diagnosis: Essential (primary) hypertension[ICD10: I10] Mila Nicole MD, [facility] CPT-4: 52346 03/19/2017 ([id number]) 44641 EST. P ATIENT, LEVEL III Diagnosis: Type 2 diabetes mellitus with hyperglycemia[ICD10: E11.65] Mila Nicole MD, [facility] CPT-4: 12862 02/03/2017 93637 EST. PATIENT, LEVEL IV Diagnosis: Generalized anxiety disorder[ICD10: F41.1] Diagnosis: Type 2 diabetes mellitus with hyperglycemia[ICD10: E11.65] Diagnosis: Essential (primary) hypertension[ICD10: I10] Gardenia Nicole MD, [facility] CPT-4: 72146 01/07/2017 ([id number]) 50029 EST. P ATIENT, LEVEL III Diagnosis: Type 2 diabetes mellitus with hyperglycemia[ICD10: E11.65] Diagnosis: Encounter for immunization[ICD10: Z23] Mila Nicole MD, [facility] CPT-4: 45182 12/17/2016 ([id number]) 41599 EST. P ATIENT, LEVEL IV Diagnosis: Type 2 diabetes mellitus with hyperglycemia[ICD10: E11.65] Diagnosis: Essential (primary) hypertension[ICD10: I10] Diagnosis: Major depressive disorder, recurrent, mild[ICD10: F33.0] Mila Nicole MD, [facility] CPT-4: 75024 09/14/2016 ([id number]) 06856 EST. 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 CPT-4: 30072 06/18/2016 ([id number]) 40127 EST. P ATIENT, LEVEL IV Diagnosis: Type 2 diabetes mellitus with hyperglycemia[ICD10: E11.65] Diagnosis: Essential (primary) hypertension[ICD10: I10] Mila Nicole MD, C CPT-4: 79484 04/16/2016 ([id number]) 21833 EST. 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 CPT-4: 28717 03/19/2016 ([id number]) 49868 EST. P ATIENT, LEVEL IV Diagnosis: Type 2 diabetes mellitus with hyperglycemia[ICD10: E11.65] Diagnosis: Encounter for immunization[ICD10: Z23] Diagnosis: Essential (primary) hypertension[ICD10: I10] Mila Nicole MD, C CPT-4: 04899 11/14/2015 ([id number]) 75208 EST. P ATIENT, LEVEL IV Diagnosis: Type 2 diabetes mellitus with hyperglycemia[ICD10: E11.65] Diagnosis: Essential (primary) hypertension[ICD10: I10] Diagnosis: Low back pain[ICD10: M54.5] Mila Nicole MD, [facility] CPT-4: 74995 08/14/2015 ([id number]) 62037 EST. P ATIENT, LEVEL IV Diagnosis: Type 2 diabetes mellitus with hyperglycemia[ICD10: E11.65] Diagnosis: Essential (primary) hypertension[ICD10: I10] Diagnosis: Hypothyroidism, unspecified[ICD10: E03.9] Mila Nicole MD, C CPT-4: 86266 07/17/2015 ([id number]) 98745 EST. P ATIENT, LEVEL IV Diagnosis: Essential (primary) hypertension[ICD10: I10] Diagnosis: Type 2 diabetes mellitus with hyperglycemia[ICD10: E11.65] Diagnosis: Headache[ICD10: R51] Gardenia Nicloe MD, [facility] CPT-4: 99622 03/25/2015 ([id number]) 43605 EST. P ATIENT, LEVEL IV Diagnosis: ESSENTIAL HYPERTENSION[ICD9: 401.9] Diagnosis: DIABETES TYPE II[ICD9: 250.00] Diagnosis: Aortic stenosis[ICD9: 424.1] Mila Nicole MD, [facility] CPT-4: 48218 12/04/2014 ([id number]) [facility] Diagnosis: ESSENTIAL HYPERTENSION[ICD9: 401.9] Diagnosis: Diabetes mellitus out of control[ICD9: 250.02] Mila Nicole MD, [facility] CPT-4: 98959 08/14/2014 Plan of Care Planned Activity Notes [...] concerns. 04/27/2018 Appointment: [phone] [place] (10 min) Simple 04/27/2018 Patient Education: Patient Medication Summary Completed 04/27/2018 [phone] [place] ([facility]) Moderate 04/05/2018 Visit [...] - continue with current regimen. 03/28/2018 Appointment: Corey Mila WPtel: [phone] [phone] (15 min) Moderate 03/28/2018 Patient Education: Patient Medication Summary Completed 03/28/2018 Patient Education: Hypertension Completed 03/28/2018 Care Plan: ECHO EXAM OF ABDOMEN Pending 03/28/2018 Visit Plan: Low back pain-xray lumb ar spine Dysuria- improved-will culture urine [id number] changes today 02/24/2018 Appointment: Claudia Pruitt WPtel: [phone] [phone] (15 min) Moderate 02/24/2018 Patient Education: Patient [...] medications. 01/27/2018 Appointment: [phone] [place] (15 min) Moderate 01/27/2018 Patient Education: [...] worse 11/25/2017 Appointment: Claudia Pruitt WPtel: [phone] [phone] [place] (15 min) Moderate 11/25/2017 Patient Education: Patient Medication Summary Completed 11/25/2017 [phone] [place] (15 min) Moderate 10/28/2017 Visit Plan: [...] to appt. 10/26/2017 Appointment: Claudia Pruitt WPtel: [phone] [phone] [place] (15 min) Moderate 10/26/2017 Patient Education: [...] plan. 10/11/2017 Appointment: Claudia Pruitt WPtel: [phone] [phone] [place] (30 min) Complex 10/11/2017 Patient Education: [...] Completed 09/22/2017 [phone] [place] ([facility] min) Moderate 09/13/2017 Appointment: Mila Nicole WPtel: [phone] [phone] [place] (15 min) Moderate 09/07/2017 Visit Plan: [...] becoming uncontrolled. 07/06/2017 Appointment: Mila Nicole WPtel: [phone] [phone] (15 min) Moderate 07/06/2017 Patient Education: Patient Medication Summary Completed 07/06/2017 Appointment: Mila Nicole WPtel: [phone] [phone] (15 min) Moderate 06/07/2017 Visit Plan: Hypertension [...] less controlled. 06/03/2017 Appointment: Claudia Pruitt WPtel: [phone] [phone] [place] (30 min) Complex 06/03/2017 Patient Education: [...] plan 05/12/2017 Appointment: Gardenia Shah WPtel: [phone] [phone] (30 min) Complex 05/12/2017 Patient Education: Patient Medication Summary Completed 05/12/2017 Visit Plan: Hypertension - well con elodiaconstantineed - continue with current medications, continue with [...] medication. 04/15/2017 [phone] ([facility] min) Moderate 04/15/2017 Patient Education: [...] daily. 03/19/2017 Appointment: Mila Nicole WPtel: [phone] [facility] (15 min) Moderate 03/19/2017 Patient Education: Patient Medication Summary Completed 03/19/2017 Appointment: Mila Nicole WPtel: [facility] (15 min) Moderate 02/24/2017 Visit Plan: Diabetes [...] at HS 02/03/2017 Appointment: Mila Nicole WPtel: [phone] (15 min) Moderate 02/03/2017 Patient Education: Patient [...] acute concerns. 01/07/2017 Appointment: Gardenia Shah WPtel: [facility] (30 min) Complex 01/07/2017 Patient Education: Patient [...] to allow for greater blood glucose control. [id number], 02/2018 junior nordisk 12/17/2016 [facility]ment: [phone] ([facility] min) Moderate 12/17/2016 Patient Education: Patient Medication Summary Completed 12/17/2016 Patient Education: Obesity Completed 12/17/2016 [facility]ment: [phone] [place] (15 min) Moderate 12/14/2016 Visit [...] current medications. 09/14/2016 Appointment: Mila Nicole WPtel: [phone] [phone] [place] (15 min) Moderate [...] home. 06/18/2016 [facility]ment: [phone] [place] (15 min) Moderate 06/18/2016 Patient [...] at home. 04/16/2016 Appointment: Mila Nicole WPtel: [phone] [facility] (15 min) Moderate 04/16/2016 Patient Education: [...] with gabapentin 03/19/2016 App[facility]ment: [phone] (15 min) Moderate 03/19/2016 Patient Education: [...] at home. 11/14/2015 Appointment: Mila Nicole WPtel: [facility] [place] (15 min) Moderate 11/14/2015 Patient [...] Hgba1c 07/17/2015 Appointment: [phone] [phone] [place] (15 min) Moderate 07/17/2015 Patient [...] Completed 03/25/2015 App[facility]ment: [phone] (15 min) Moderate 01/14/2015 Visit Plan: [...] control. 12/04/2014 App[facility]ment: [phone] (15 min) Moderate 12/04/2014 Patient Education: [...] glucose control. 08/14/2014 Appointment: [phone] [place] (S[facility] New Patient 08/14/2014 Patient [...] to allow for greater blood glucose control. [id number], 02/2018 junior nordisk CHECK LABS AND UA XRAY LUMBAR . Low back pain-xray lumbar spine Dysuria- improved-will culture urine MD-obtucd-ao changes today . Hypertension - wel l [...] with insulin at 10 units daily. . Anxiety - the bryan ent has [...]
--- OUTSIDE RECORDS SUMMARY | 2019-03-16 19:33 | XMS REPORT | CCD ---
Author Author Melinda Nicole Organization Mila Nicole MD, [facility] Address [address] [place] [address] Phone Care Team Providers Care [employer] Tester Name Role Phone PP Unavailable CCM Unavailable Summary Purpose Interface Exchange Insurance Providers Payer name Policy type / Coverage type Covered green party ID Effective Begin Date Effective End Date WPS Medicare Part B Medicare Part B [id number] Unknown AARP Medicare Part B [id number] Unknown Family history Mother Diagnosis Age At [...] Unknown 3 08/14/[address]: 457555057 Never smoker 08/14/[address]: 812990940 Never drinks alcohol 08/14/2014 Allergies, Adverse Reactions, Alerts Substance Reaction Codes Entered Date Inactivated Date Status * OTHER REACTION - S EE ANSWER BOX Invokana, Victoza Unknown 03/19/2017 No Inactive Date Active Paxil has blurred vision RxNorm: 263836 08/14/2014 No Inactive Date Active Lipitor RxNorm: 66606 08/14/2014 No Inactive Date Active Past Medical [...] Fill Instructions Flagyl 500 mg tablet RxNorm: 603456 1 Tablet(s) PO TID 05/05/2018 05/14/2018 Active Flagyl 500 mg tablet RxNorm: 963062 1 Tablet(s) PO TID 05/05/2018 05/04/2018 Inactive Zetia 10 mg tablet RxNorm: 858770 1 Tablet(s) PO daily 03/28/2018 03/22/2019 Active tramadol 50 mg tablet RxNorm: 872381 1 Tablet(s) PO TID as needed 03/25/2018 No Stop Date Active fluticasone 50 mcg/a ctuation nasal spray,suspension RxNorm: 0812687 INSTILL ONE SPRAY IN EACH NOSTRILTWICE A DAY 03/16/2018 10/11/2018 Active Generic For:FLONASE SPR 0.05% 03/16/2018 8:50:59 AM Keflex 500 mg capsule RxNorm: 781524 1 Capsule(s) PO TID 02/11/2018 02/10/2018 Inactive Keflex 500 mg capsule RxNorm: 650631 1 Capsule(s) PO TID 02/11/2018 02/20/2018 Inactive metoprolol succinate ER 200 mg tablet,extended release 24 hr RxNorm: 651011 1 Tablet(s) PO daily 01/27/2018 No Stop Date Active Eliquis 2.5 mg tablet RxNorm: 5773475 1 Tablet(s) PO BID 01/27/2018 No Stop Date Active digoxin 125 mcg tablet RxNorm: 274987 1 Tablet(s) PO daily 01/27/2018 No Stop Date Active Basaglar KwikPen U-1 00 Insulin 100 unit/mL (3 mL) subcutaneous RxNorm: 9719335 20 Unit(s) SQ daily 11/25/2017 05/23/2018 Active UPDATE RX metformin 500 mg tablet RxNorm: 878111 1 Tablet(s) PO UD 1.5 in morning, noon a nd 1 at bedtime 10/28/2017 10/22/2018 Active Basaglar KwikPen U-1 00 Insulin 100 unit/mL (3 mL) subcutaneous RxNorm: 0786921 18 Unit(s) SQ daily 10/26/2017 11/24/2017 Inactive UPDATE RX levothyroxine 50 mcg tablet RxNorm: 679081 TAKE 1 TABLET BY MOUT H ONCE DAILY 10/15/2017 06/11/2018 Ac tive Generic For:SYNTHROID 50MCG TAB 018 9:59:00 AM escitalopram 10 mg t ablet RxNorm: 541839 1 Tablet(s) PO QPM 09/22/2017 09/16/2018 Active Generic For:LEXAPRO 5MG 01/07/2017 9:05 :43 AM Basaglar KwikPen U-1 00 Insulin 100 unit/mL (3 mL) subcutaneous RxNorm: 8964052 15 Unit(s) SQ daily 09/22/2017 10/25/2017 Inactive potassium chloride E R 20 mEq tablet,extended release RxNorm: 114008 1 Tablet(s) PO daily 06/22/2017 01/17/2018 Inactive Lantus Solostar U-10 0 Insulin 100 unit/mL (3 mL) subcutaneous pen RxNorm: 869002 10 Unit(s) SQ daily 06/08/2017 06/08/2017 Inactive Basaglar KwikPen U-1 00 Insulin 100 unit/mL (3 mL) subcutaneous RxNorm: 6877176 10 Unit(s) SQ daily 06/08/2017 06/07/2017 Inactive Basaglar KwikPen U-1 00 Insulin 100 unit/mL (3 mL) subcutaneous RxNorm: 1367259 10 Unit(s) SQ daily 06/08/2017 09/21/2017 Inactive Lexapro 5 mg tablet RxNorm: 255425 1 Tablet(s) PO daily 06/01/2017 11/27/2017 Inactive Lexapro 5 mg tablet RxNorm: 648385 1 Tablet(s) PO daily 05/12/2017 05/31/2017 Inactive bisoprolol 5 mg-hydr ochlorothiazide 6.25 mg tablet RxNorm: 761808 1 Tablet(s) PO BID 05/04/2017 06/02/2017 Inactive Keflex 500 mg capsule RxNorm: 768248 1 Capsule(s) PO QID 04/15/2017 04/21/2017 Inactive Lantus Solostar 100 unit/mL (3 mL) subcutaneous insulin pen RxNorm: 219833 10 Unit(s) SQ daily 02/03/2017 06/07/2017 Inactive levothyroxine 50 mcg tablet RxNorm: 340486 TAKE 1 TABLET BY MOUT H ONCE DAILY 02/01/2017 09/28/2017 In active Generic For:SYNTHROID 50MCG TAB 017 9:20:59 AM gabapentin 600 mg ta blet RxNorm: 515394 1 Capsule(s) PO TID 01/27/2017 01/21/2018 Inactive Lexapro 5 mg tablet RxNorm: 455303 TAKE 1 TABLET BY MOUTH AT BEDTIME 01/07/2017 09/21/2017 In active Generic For:LEXAPRO 5MG 01/07/2017 9:05 :43 AM Victoza 2-Dariusz 0.6 mg /0.1 mL (18 mg/3 mL) subcutaneous pen injector RxNorm: 164134 1.8 Milligram(s) SQ daily 12/17/2016 02/07/2017 Inactive Victoza 3-Dariusz 0.6 mg /0.1 mL (18 mg/3 mL) subcutaneous pen injector RxNorm: 934043 Milligram(s) SQ 12/17/2016 02/07/2017 Inactive Zetia 10 mg tablet RxNorm: 334992 1 Tablet(s) PO daily 11/17/2016 11/11/2017 Inactive fluticasone 50 mcg/a ctuation nasal spray,suspension RxNorm: 3184049 [place] NASAL ONE SPRAY IN EACH NOSTRIL TWICE DAILY 09/28/2016 04/25/2017 Inactive Victoza 2-Dariusz 0.6 mg /0.1 mL (18 mg/3 mL) subcutaneous pen injector RxNorm: 648299 1.2 Milligram(s) SQ daily 09/14/2016 12/16/2016 Inactive Lexapro 5 mg tablet RxNorm: 242130 1 Tablet(s) PO QHS 09/14/2016 12/12/2016 Inactive metformin 500 mg tablet RxNorm: 007783 1 Tablet(s) PO UD 1.5 in morning, noon a nd 1 at bedtime 09/08/2016 09/02/2017 Inactive glimepiride 4 mg tablet RxNorm: 240197 TAKE 1 TABLET BY MOUTH ONCE DAILY 07/31/2016 09/13/2016 In active Generic For:*AMARYL 4MG 07/31/2016 9:02 :38 AM Victoza 2-Dariusz 0.6 mg /0.1 mL (18 mg/3 mL) subcutaneous pen injector RxNorm: 729135 1.2 Milligram(s) SQ daily 05/18/2016 09/13/2016 Inactive Victoza 2-Dariusz 0.6 mg /0.1 mL (18 mg/3 mL) subcutaneous pen injector RxNorm: 694098 1.2 Milligram(s) SQ daily 04/16/2016 05/17/2016 Inactive levothyroxine 50 mcg tablet RxNorm: 368441 TAKE 1 TABLET BY MOUT H ONCE DAILY 04/08/2016 12/03/2016 In active Generic For:SYNTHROID 50MCG TAB 017 9:05:40 AM levothyroxine 50 mcg tablet RxNorm: 636337 1 Tablet(s) PO daily TAKE 1 TABLET BY MOUTH ONCE DAILY 04/08/2016 12/03/2016 Inactive Generic For:SYNTHROID 50MCG TAB N O T I C E PRESCRIPTION PREVIOUSLY AUTHORIZED BY DOCTOR:HENRY BAIG bisoprolol 5 mg-hydr ochlorothiazide 6.25 mg tablet RxNorm: 947449 1 Tablet(s) PO BID 03/23/2016 03/17/2017 Inactive Victoza 2-Dariusz 0.6 mg /0.1 mL (18 mg/3 mL) subcutaneous pen injector RxNorm: 837428 0.6 Milligram(s) SQ daily 03/19/2016 04/15/2016 Inactive Lexapro 5 mg tablet RxNorm: 683184 1 Tablet(s) PO QHS 03/19/2016 06/16/2016 Inactive gabapentin 600 mg ta blet RxNorm: 365489 1 Capsule(s) PO TID 03/19/2016 01/26/2017 Inactive glimepiride 4 mg tablet RxNorm: 649266 1 Tablet(s) PO daily 12/09/2015 06/05/2016 Inactive Victoza 3-Dariusz 0.6 mg /0.1 mL (18 mg/3 mL) subcutaneous pen injector RxNorm: 326630 0.6 Milligram(s) SQ daily x2 weeks, then 1.2 mg SQ daily 12/02/2015 03/18/2016 Inactive metformin 500 mg tablet RxNorm: 901928 1 Tablet(s) PO UD 1.5 in morning, noon a nd 1 at bedtime 08/14/2015 08/07/2016 Inactive gabapentin 600 mg ta blet RxNorm: 466318 1 Capsule(s) PO TID S HE IS ONLY TAKING 1 QD 08/14/2015 03/18/2016 In active fluticasone 50 mcg/a ctuation nasal spray,suspension RxNorm: 677415 [place] NASAL ONE SPRAY IN EACH NOSTRIL TWICE DAILY 07/26/2015 07/25/2015 Inactive fluticasone 50 mcg/a ctuation nasal spray,suspension RxNorm: 1766912 [place] NASAL ONE SPRAY IN EACH NOSTRIL TWICE DAILY 07/26/2015 02/20/2016 Inactive bisoprolol 5 mg-hydr ochlorothiazide 6.25 mg tablet RxNorm: 993364 1 Tablet(s) PO daily 1 Tablet(s) PO BID 07/17/2015 01/12/2016 Inactive metformin 500 mg tablet RxNorm: 126641 1 Tablet(s) PO TID 1 Tablet(s) PO TID 07/17/2015 08/13/2015 In active Diflucan 100 mg tablet RxNorm: 410056 1 Tablet(s) PO daily 07/17/2015 07/21/2015 Inactive Zetia 10 mg tablet RxNorm: 583324 1 Tablet(s) PO daily 06/10/2015 06/03/2016 Inactive bisoprolol 5 mg-hydr ochlorothiazide 6.25 mg tablet RxNorm: 368819 1 Tablet(s) PO BID 04/18/2015 07/16/2015 Inactive metformin 500 mg tablet RxNorm: 945618 1 Tablet(s) PO TID 03/01/2015 06/28/2015 Inactive glimepiride 4 mg tablet RxNorm: 710475 1 Tablet(s) PO daily 01/31/2015 01/30/2015 Inactive levothyroxine 50 mcg tablet RxNorm: 002046 TAKE 1 TABLET BY MOUT H ONCE DAILY 01/31/2015 09/27/2015 In active Generic For:SYNTHROID 50MCG TAB N O T I C E PRESCRIPTION PREVIOUSLY AUTHORIZED BY DOCTOR:HENRY BAIG glimepiride 4 mg tablet RxNorm: 993422 1 Tablet(s) PO daily 01/31/2015 07/29/2015 Inactive Invokana 100 mg tablet RxNorm: 2119509 1 Tablet(s) PO daily 12/12/2014 07/16/2015 Inactive bisoprolol 5 mg-hydr ochlorothiazide 6.25 mg tablet RxNorm: 702414 1 Tablet(s) PO BID 08/27/2014 02/22/2015 Inactive metformin 500 mg tablet RxNorm: 958235 1 Tablet(s) PO TID 08/10/2014 12/07/2014 Inactive metformin 500 mg tablet RxNorm: 807168 1 Tablet(s) PO TID 08/10/2014 08/09/2014 Inactive Fish Oil 1,000 mg ca psule RxNorm: 1 Capsule(s) PO daily No Start Date Active Protonix 40 mg table t,delayed release RxNorm: 077019 1 Tablet(s) PO QAM No Start Date Active furosemide 40 mg tablet RxNorm: 210452 1 Tablet(s) PO daily No Start Date Active pen needle, diabetic 31 gauge x 1/6" RxNorm: Miscellaneous N o Start Date Active nitroglycerin 0.4 mg sublingual tablet RxNorm: 687405 1 Tablet(s) SL as nee ded chest pain No Start Date Active amlodipine 5 mg tablet RxNorm: 551978 1 Tablet(s) PO daily No Start Date Active Entresto 24 mg-26 mg tablet RxNorm: 7273632 1 Tablet(s) PO BID No Start Date Active aspirin 81 mg chewab le tablet RxNorm: 020182 1 Tablet(s) PO daily No Start Date 06/02/2017 Inactive Eliquis 5 mg tablet RxNorm: 0897276 1 Tablet(s) PO BID No Start Date 01/26/2018 Inactive bisoprolol-hydrochlo rothiazide oral RxNorm: [address] art Date 08/26/2014 Inactive levothyroxine 50 mcg tablet RxNorm: 705588 1 Tablet(s) PO daily No Start Date 01/30/2015 Inactive potassium chloride E R 20 mEq tablet,extended release RxNorm: 475553 1 Tablet(s) PO daily No Start Date 06/21/2017 Inactive digoxin 250 mcg tablet RxNorm: 561537 1 Tablet(s) PO daily No Start Date 01/26/2018 Inactive Invokana 100 mg tablet RxNorm: 9530988 1 Tablet(s) PO daily No Start Date 12/11/2014 Inactive tramadol 50 mg tablet RxNorm: 574751 1 Tablet(s) PO TID as needed No Start Date 03/22/2018 Inactive Victoza 3-Dariusz 0.6 mg /0.1 mL (18 mg/3 mL) subcutaneous pen injector RxNorm: 901883 0.6 Milligram(s) SQ daily x2 weeks, then 1.2 mg SQ daily No Start Date 12/01/2015 Inactive Effient 10 mg tablet RxNorm: 458244 1 Tablet(s) PO QAM No Start Date 01/26/2018 Inactive Zetia 10 mg tablet RxNorm: 433419 1 Tablet(s) PO BID No Start Date 03/18/2016 Inactive metoprolol succinate ER 100 mg tablet,extended release 24 hr RxNorm: 402886 1 Tablet(s) PO daily No Start Date 01/26/2018 Inactive gabapentin 300 mg ca psule RxNorm: 785540 1 Capsule(s) PO BID No Start Date 08/13/2015 Inactive Lasix 40 mg tablet RxNorm: 682827 1 Tablet(s) PO BID No Start Date 04/14/2017 Inactive Coreg 3.125 mg tablet RxNorm: 064852 1 Tablet(s) PO BID with meals No [...] 03/19/2017 stress test and then shipped to [place] diabetes mellitus 02/03/2017 headache 01/07/2017 diabetes mellitus 12/17/2016 diabetes mellitus 09/14/2016 diabetes mellitus 06/18/2016 medication follow up 04/16/2016 back pain 03/19/2016 back pain 11/14/2015 back pain 08/14/2015 diabetes mellitus 07/17/2015 Hospital Follow Up 03/25/2015 diabetes mellitus 12/04/2014 diabetes mellitus 08/14/2014 Results Observation Observation Code Item Item Code Result Date Culture Urine [id number] URI NE CULTURE SEE NOTES 02/28/2018 Urine [...] 28.8 pg 02/24/2018 Cbc With Differential Ord2 [place]% 5.7 % 02/24/2018 Cbc With Differential Ord2 [...] 1.57 K/ul 02/24/2018 Cbc With Differential Ord2 [place] ABS# 0.4 K/ul 02/24/2018 Cbc With Differential Ord2 Eos ABS# 0.1 K/ul 02/24/2018 Cbc With Differential Ord2 Baso ABS# 0.0 K/ul 02/24/2018 Comp Metabolic Ikn079 NA 138 mEq/L 02/24/2018 Comp Metabolic Mnj833 K 4.4 mEq/L 02/24/2018 Comp Metabolic Bfu061 CL 100 mEq/L 02/24/2018 Comp Metabolic Tra365 CO2 27.0 mEq/L 02/24/2018 Comp Metabolic Eze417 AN ION GAP 15 02/24/2018 Comp Metabolic Sek136 GL UCOSE 98 mg/dL 02/24/2018 Comp Metabolic Tsi247 Cr eat 1.0 mg/dL 02/24/2018 Comp Metabolic Bep387 eG FR 55 ml/min/1.73m2 02/24 Comp Metabolic Fej488 BUN 25 mg/dL 02/24/2018 Comp Metabolic Idi292 B/ C Ratio 24.3 Ratio 02/24/2018 Comp Metabolic Pks310 CA LCIUM 9.4 mg/dL 02/24/2018 Comp Metabolic Npc738 AL K PHOS 46 U/L 02/24/2018 Comp Metabolic Gtm049 T(SGOT) 13 U/L 02/24/2018 Comp Metabolic Kwi776 AL T(SGPT) 12 U/L 02/24/2018 Comp Metabolic Wzr247 BI LI T 0.4 mg/dL 02/24/2018 Comp Metabolic Fzj715 AL BUMIN 4.5 g/dL 02/24/2018 Comp Metabolic Cgf595 TP RO 6.6 g/dL 02/24/2018 Comp Metabolic Pnr518 GL OB 2.1 g/dL 02/24/2018 Comp Metabolic Jxp158 A/ G Ratio 2.1 Ratio 02/24/2018 Comp Metabolic Gru189 Os mo 280 mOsmo 02/24/2018 Culture Urine [id number] URI NE CULTURE SEE NOTES 02/11/2018 Culture Urine [id number] Con tinued Results 02/11/2018 Urine Culture Ucult Comp lete >100,000 col/ml aerobic grow th sent to ref lab 02/08/2018 %Hba1C Qmu794 % HbA1c 55136-5 6.8 % 01/12/2018 %Hba1C Ndh084 Gluc Ave 148 mg/dL 01/12/2018 Metabolic Ord15 [...] 89.9 fl 01/11/2018 Cbc With Differential Ord2 [place]% 7.8 % 01/11/2018 Cbc With Differential Ord2 [...] 1.70 K/ul 01/11/2018 Cbc With Differential Ord2 [place] ABS# 0.4 K/ul 01/11/2018 Cbc With Differential Ord2 Eos ABS# 0.1 K/ul 01/11/2018 Cbc With Differential Ord2 Baso ABS# 0.0 K/ul 01/11/2018 Magnesium Ord90 Mag 1.7 mg/dL 01/11/2018 Test(s) Not Perfromed [id number] Test(s) Not Performed Test(s) Not Performed. See Below: 09/20/2017 Test(s) Not Perfromed [id number] TEST NAME BNP 09/20/2017 Test(s) Not Perfromed [id number] Rejection Reason Patient Refused due to lack of coving diganosis 09/20/2017 Test(s) Not Perfromed [id number] COMMENT Dorita Notified 11/2017 Test(s) Not Perfromed [id number] Cns Miguel Mclaughlin 09/20/2017 B Type Natriuretic Peptide Rub2020 B-ASPHALT ROLLER PERSON 889.00 pg/ml 8 Cbc With Differential Ord2 WBC 5.72 K/ul 09/20/2017 Cbc With Differential Ord2 RBC 3.88 M/ul 09/20/2017 Cbc With Differential Ord2 HGB 11.2 g/dl 09/20/2017 Cbc With Differential Ord2 Neut% 62.4 % 09/20/2017 Cbc With Differential Ord2 HCT 35.0 % 09/20/2017 Cbc With Differential Ord2 Lymph% 29.4 % 09/20/2017 Cbc With Differential Ord2 MCV 90.2 fl 09/20/2017 Cbc With Differential Ord2 [place]% 5.6 % 09/20/2017 Cbc With Differential Ord2 [...] 1.68 K/ul 09/20/2017 Cbc With Differential Ord2 [place] ABS# 0.3 K/ul 09/20/2017 Cbc With Differential Ord2 Eos ABS# 0.1 K/ul 09/20/2017 Cbc With Differential Ord2 Baso ABS# 0.0 K/ul 09/20/2017 %Hba1C Rzz858 % HbA1c 21974-5 7.9 % 09/20/2017 %Hba1C Trx285 Gluc Ave 180 mg/dL 09/20/2017 Magnesium Ord90 [...] 28.3 pg 07/07/2017 Cbc With Differential Ord2 [place]% 7.9 % 07/07/2017 Cbc With Differential Ord2 [...] 1.34 K/ul 07/07/2017 Cbc With Differential Ord2 [place] ABS# 0.4 K/ul 07/07/2017 Cbc With Differential Ord2 Eos ABS# 0.1 K/ul 07/07/2017 Cbc With Differential Ord2 Baso ABS# 0.0 K/ul 07/07/2017 Comp Metabolic Oqc081 NA 142 mEq/L 07/07/2017 Comp Metabolic Yih577 K 4.3 mEq/L 07/07/2017 Comp Metabolic Asl248 CL 105 mEq/L 07/07/2017 Comp Metabolic Qrf796 CO2 28.0 mEq/L 07/07/2017 Comp Metabolic Oub259 AN ION GAP 13 07/07/2017 Comp Metabolic Dzz088 GL UCOSE 197 mg/dL 07/07/2017 Comp Metabolic Wsv738 Cr eat 1.1 mg/dL 07/07/2017 Comp Metabolic Lej762 eG FR 51 ml/min/1.73m2 07/07 Comp Metabolic Fuf206 BUN 21 mg/dL 07/07/2017 Comp Metabolic Ikn389 B/ C Ratio 18.9 Ratio 07/07/2017 Comp Metabolic Fda408 CA LCIUM 8.9 mg/dL 07/07/2017 Comp Metabolic Fxi886 AL K PHOS 51 U/L 07/07/2017 Comp Metabolic Zmd291 T(SGOT) 11 U/L 07/07/2017 Comp Metabolic Lqe441 AL T(SGPT) 11 U/L 07/07/2017 Comp Metabolic Fjq373 BI LI T 0.3 mg/dL 07/07/2017 Comp Metabolic Pde823 AL BUMIN 4.2 g/dL 07/07/2017 Comp Metabolic Wxu949 TP RO 6.0 g/dL 07/07/2017 Comp Metabolic Nwo585 GL OB 1.8 g/dL 07/07/2017 Comp Metabolic Epn680 A/ G Ratio 2.3 Ratio 07/07/2017 Comp Metabolic Lnt513 Os mo 292 mOsmo 07/07/2017 Digoxin Ord9 DIGOXIN 1.3 NG/ML 07/07/2017 Tsh Ord6 TSH (3rd IS) 2.19 uIU/mL 07/07/2017 B Type Natriuretic Peptide Nip9327 B-[employer] PERSON 801.00 pg/ml 8 Culture Urine [id number] URI NE CULTURE SEE NOTES 04/19/2017 Culture Urine [id number] Con tinued Results 04/19/2017 Urine Culture Ucult Comp lete >100,000 col/ml aerobic grow th sent to ref lab 04/16/2017 Comp Metabolic Qoi650 NA 140 mEq/L 01/26/2017 Comp Metabolic Xuv295 K 4.6 mEq/L 01/26/2017 Comp Metabolic Qdc498 CL 102 mEq/L 01/26/2017 Comp Metabolic Fij482 CO2 28.0 mEq/L 01/26/2017 Comp Metabolic Pst058 AN ION GAP 15 01/26/2017 Comp Metabolic Ixi594 GL UCOSE 173 mg/dL 01/26/2017 Comp Metabolic Mwa431 Cr eat 1.0 mg/dL 01/26/2017 Comp Metabolic Cfa752 eG FR 56 ml/min/1.73m2 01/26 Comp Metabolic Oxv506 BUN 23 mg/dL 01/26/2017 Comp Metabolic Dvw663 B/ C Ratio 22.5 Ratio 01/26/2017 Comp Metabolic Ivg971 CA LCIUM 9.4 mg/dL 01/26/2017 Comp Metabolic Hzq675 AL K PHOS 52 U/L 01/26/2017 Comp Metabolic Qws857 T(SGOT) 12 U/L 01/26/2017 Comp Metabolic Mgl103 AL T(SGPT) 12 U/L 01/26/2017 Comp Metabolic Plu091 BI LI T 0.5 mg/dL 01/26/2017 Comp Metabolic Khz172 AL BUMIN 4.4 g/dL 01/26/2017 Comp Metabolic Zdq342 TP RO 6.5 g/dL 01/26/2017 Comp Metabolic Tjb558 GL OB 2.1 g/dL 01/26/2017 Comp Metabolic Eom797 A/ G Ratio 2.1 Ratio 01/26/2017 Comp Metabolic Xhb196 Os mo 287 mOsmo 01/26/2017 Cbc With [...] 29.2 pg 01/26/2017 Cbc With Differential Ord2 [place]% 4.9 % 01/26/2017 Cbc With Differential Ord2 [...] 1.75 K/ul 01/26/2017 Cbc With Differential Ord2 [place] ABS# 0.4 K/ul 01/26/2017 Cbc With Differential Ord2 Eos ABS# 0.1 K/ul 01/26/2017 Cbc With Differential Ord2 Baso ABS# 0.0 K/ul 01/26/2017 %Hba1C Tgh985 % HbA1c 50598-8 7.8 % 01/26/2017 %Hba1C Ktl153 Gluc Ave 177 mg/dL 01/26/2017 Lipid Ord30 CHOL 239 mg/dL 01/26/2017 Lipid Ord30 HDL 40.0 mg/dl 01/26/2017 Lipid Ord30 TRIG 325 mg/dL 01/26/2017 Lipid Ord30 LDL 134 mg/dL 01/26/2017 Lipid Ord30 C/HDL 6.0 Ratio 01/26/2017 Free T4 Sqa799 FREE T4 0.95 ng/dL 01/26/2017 Tsh Ord6 [...] Metabolic Ord15 CALCIUM 9.0 mg/dL 09/08/2016 %Hba1C Jwq663 % HbA1c 48051-1 7.5 % 09/08/2016 %Hba1C Yut736 Gluc Ave 169 mg/dL 09/08/2016 Tsh Ord6 hTSH II 2.64 uIU/mL 03/13/2016 %Hba1C Ohj008 % HbA1c 93449-2 8.2 % 03/13/2016 %Hba1C Lxs485 Gluc Ave 189 mg/dL 03/13/2016 Lipid Ord30 CHOL 233 mg/dL 03/13/2016 Lipid Ord30 HDL 46.0 mg/dl 03/13/2016 Lipid Ord30 TRIG 276 mg/dL 03/13/2016 Lipid Ord30 LDL 132 mg/dL 03/13/2016 Lipid Ord30 C/HDL 5.1 Ratio 03/13/2016 Free T4 Xgg170 FREE T4 0.94 ng/dL 03/13/2016 Cbc With [...] 29.5 % 03/13/2016 Cbc With Differential Ord2 [place]% 6.1 % 03/13/2016 Cbc With Differential Ord2 [...] 1.63 K/ul 03/13/2016 Cbc With Differential Ord2 [place] ABS# 0.3 K/ul 03/13/2016 Cbc With Differential Ord2 Eos ABS# 0.1 K/ul 03/13/2016 Cbc With Differential Ord2 Baso ABS# 0.0 K/ul 03/13/2016 Comp Metabolic Yyd252 NA 139 mEq/L 03/13/2016 Comp Metabolic Etg411 K 4.3 mEq/L 03/13/2016 Comp Metabolic Xsq808 CL 103 mEq/L 03/13/2016 Comp Metabolic Gqi055 CO2 28.0 mEq/L 03/13/2016 Comp Metabolic Wfx590 AN ION GAP 12 03/13/2016 Comp Metabolic Uls562 GL UCOSE 200 mg/dL 03/13/2016 Comp Metabolic Jiu158 Cr eat 0.9 mg/dL 03/13/2016 Comp Metabolic Kiu706 eG FR 69 ml/min/1.73m2 03/13 Comp Metabolic Kuh389 BUN 19 mg/dL 03/13/2016 Comp Metabolic Llb482 B/ C Ratio 22.4 Ratio 03/13/2016 Comp Metabolic Qqj261 CA LCIUM 9.0 mg/dL 03/13/2016 Comp Metabolic Wan633 AL K PHOS 57 U/L 03/13/2016 Comp Metabolic Ynl604 T(SGOT) 13 U/L 03/13/2016 Comp Metabolic Ypj460 AL T(SGPT) 16 U/L 03/13/2016 Comp Metabolic Apw382 BI LI T 0.4 mg/dL 03/13/2016 Comp Metabolic Stb741 AL BUMIN 4.2 g/dL 03/13/2016 Comp Metabolic Jzp582 TP RO 6.3 g/dL 03/13/2016 Comp Metabolic Qdd002 GL OB 2.1 g/dL 03/13/2016 Comp Metabolic Eck237 A/ G Ratio 2.0 Ratio 03/13/2016 Comp Metabolic Mcl141 Os mo 285 mOsmo 03/13/2016 %Hba1C Mpm240 % HbA1c 47314-7 8.3 % 11/14/2015 %Hba1C Uzb555 Gluc Ave 192 mg/dL 11/14/2015 Lipid Ord30 CHOL 210 mg/dL 07/19/2015 Lipid Ord30 HDL 43.0 mg/dl 07/19/2015 Lipid Ord30 TRIG 311 mg/dL 07/19/2015 Lipid Ord30 LDL 105 mg/dL 07/19/2015 Lipid Ord30 C/HDL 4.9 Ratio 07/19/2015 %Hba1C Sdo749 % HbA1c 64824-2 7.6 % 07/19/2015 %Hba1C Ghn962 Gluc Ave 171 mg/dL 07/19/2015 Cbc With [...] 28.8 pg 07/19/2015 Cbc With Differential Ord2 [place]% 6.1 % 07/19/2015 Cbc With Differential Ord2 [...] 1.63 K/ul 07/19/2015 Cbc With Differential Ord2 [place] ABS# 0.3 K/ul 07/19/2015 Cbc With Differential Ord2 Eos ABS# 0.1 K/ul 07/19/2015 Cbc With Differential Ord2 Baso ABS# 0.0 K/ul 07/19/2015 Cbc With Differential Ord2 New Analyzer Notice Please note new ref ranges s tarting 03-27-2015 due to implemntation of new five part differential hematolgy analyzer. 07/19/2015 Comp Metabolic Pma005 NA 138 mEq/L 07/19/2015 Comp Metabolic Gkr001 K 4.3 mEq/L 07/19/2015 Comp Metabolic Fol748 CL 100 mEq/L 07/19/2015 Comp Metabolic Mat792 CO2 33.0 mEq/L 07/19/2015 Comp Metabolic Hng946 AN ION GAP 9 07/19/2015 Comp Metabolic Udp036 GL UCOSE 149 mg/dL 07/19/2015 Comp Metabolic Jlc655 Cr eat 0.9 mg/dL 07/19/2015 Comp Metabolic Mep337 eG FR 62 ml/min/1.73m2 07/18 Comp Metabolic Sej304 BUN 19 mg/dL 07/19/2015 Comp Metabolic Tpv028 B/ C Ratio 20.2 Ratio 07/19/2015 Comp Metabolic Ldq268 CA LCIUM 9.5 mg/dL 07/19/2015 Comp Metabolic Wxr242 AL K PHOS 52 U/L 07/19/2015 Comp Metabolic Xnb728 T(SGOT) 15 U/L 07/19/2015 Comp Metabolic Knz062 AL T(SGPT) 14 U/L 07/19/2015 Comp Metabolic Qsq404 BI LI T 0.5 mg/dL 07/19/2015 Comp Metabolic Lau240 AL BUMIN 4.4 g/dL 07/19/2015 Comp Metabolic Kzu902 TP RO 6.4 g/dL 07/19/2015 Comp Metabolic Fap118 GL OB 2.0 g/dL 07/19/2015 Comp Metabolic Yui380 A/ G Ratio 2.2 Ratio 07/19/2015 Comp Metabolic Umf488 Os mo 281 mOsmo 07/19/2015 Free T4 Rzq965 FREE T4 0.92 ng/dL 07/19/2015 Tsh Ord6 hTSH II 1.95 uIU/mL 07/19/2015 Microalbumin Vzz012 Micr oAlb 0.4 mg/dL 07/19/2015 Comp Metabolic Izm234 NA 137 mEq/L 12/04/2014 Comp Metabolic Tnt432 K 4.0 mEq/L 12/04/2014 Comp Metabolic Eyq187 CL 100 mEq/L 12/04/2014 Comp Metabolic Fhh646 CO2 29.0 mEq/L 12/04/2014 Comp Metabolic Ptd628 AN ION GAP 12 12/04/2014 Comp Metabolic Azx441 GL UCOSE 171 mg/dL 12/04/2014 Comp Metabolic Usl210 Cr eat 1.0 mg/dL 12/04/2014 Comp Metabolic Deg034 eG FR 60 ml/min/1.73m2 12/04 Comp Metabolic Hpf235 BUN 25 mg/dL 12/04/2014 Comp Metabolic Tvf950 B/ C Ratio 25.8 Ratio 12/04/2014 Comp Metabolic Zho419 CA LCIUM 9.4 mg/dL 12/04/2014 Comp Metabolic Pse221 AL K PHOS 60 U/L 12/04/2014 Comp Metabolic Njn666 T(SGOT) 13 U/L 12/04/2014 Comp Metabolic Kuy672 AL T(SGPT) 17 U/L 12/04/2014 Comp Metabolic Iwt696 BI LI T 0.4 mg/dL 12/04/2014 Comp Metabolic Xmz055 AL BUMIN 4.4 g/dL 12/04/2014 Comp Metabolic Lpw816 TP RO 6.9 g/dL 12/04/2014 Comp Metabolic Bbw258 GL OB 2.5 g/dL 12/04/2014 Comp Metabolic Axw787 A/ G Ratio 1.8 Ratio 12/04/2014 Comp Metabolic Ixm716 Os mo 282 mOsmo 12/04/2014 Tsh Ord6 hTSH II 1.78 uIU/mL 12/04/2014 %Hba1C Bua247 % HbA1c 37609-6 8.3 % 12/04/2014 %Hba1C Wcz905 Gluc Ave 192 mg/dL 12/04/2014 Free T4 Wtw082 FREE T4 0.85 ng/dL 12/04/2014 Lipid Ord30 [...] Date URINALYSIS NONAUTO W /O SCOPE CPT-4: 73804 04/28/2018 URINALYSIS NONAUTO W /O SCOPE CPT-4: 67474 02/24/2018 URINALYSIS NONAUTO W /O SCOPE CPT-4: 99680 02/07/2018 ADMIN INFLUENZA VIRU S VAC CPT-4: G0008 11/25/2017 FLU VAC NO PRSV 4 VA L 3 YRS+ CPT-4: 57712 11/25/2017 GLUC MONITOR CONT PH YS I&R CPT-4: 90402 10/26/2017 GLUCOSE MONITORING CONT CPT-4: 18461 10/11/2017 URINALYSIS NONAUTO W /O SCOPE CPT-4: 70769 04/15/2017 FLU VAC NO PRSV 4 VA L 3 YRS+ CPT-4: 51766 12/17/2016 ADMIN INFLUENZA VIRU S VAC CPT-4: G0008 12/17/2016 FLU VACC PRSV FREE I NC ANTIG Formatting Model/CDA Sections, Assigned to/Nery Daniels CPT-4: [id number] 11/14/2015 ADMIN INFLUENZA VIRU S VAC CPT-4: G0008 11/14/2015 ADMIN INFLUENZA VIRU S VAC Formatting Model/CDA Sections, Assigned to/Nery Daniels CPT-4: [id number] 12/04/2014 FLU VACC 4 ANABELLE 3 YRS PLUS IM SNOMED CT: [id number] CPT-4: 35141 12/04/2014 Vital Signs Date Vital 04/27/2018 Blood Pressure 1: 118/44 Code: 8480-6 BMI: 28.3 Code: 60611-8 Heart Rate 1: 77 bpm Height: 5' SpO2: 99% Weight: 145 lbs 03/28/2018 Blood Pressure 1: 140/74 Code: 8480-6 BMI: 28.1 Code: 76302-6 Heart Rate 1: 87 bpm Height: 5' SpO2: 99% Weight: 144 lbs 02/24/2018 Blood Pressure 1: 130/62 Code: 8480-6 BMI: 28.9 Code: 37866-8 Heart Rate 1: 57 bpm Height: 5' SpO2: 99% Weight: 148 lbs 01/27/2018 Blood Pressure 1: 142/70 Code: 8480-6 BMI: 29.5 Code: 51853-4 Heart Rate 1: 61 bpm Height: 5' SpO2: 99% Weight: 151 lbs 11/25/2017 Blood Pressure 1: 148/72 Code: 8480-6 BMI: 30.9 Code: 73154-1 Heart Rate 1: 62 bpm Height: 5' SpO2: 98% Weight: 158 lbs 10/26/2017 Blood Pressure 1: 156/74 Code: 8480-6 BMI: 31.2 Code: 72353-8 Heart Rate 1: 71 bpm Height: 5' SpO2: 98% Weight: 160 lbs 10/11/2017 Blood Pressure 1: 128/70 Code: 8480-6 BMI: 30.9 Code: 09361-3 Heart Rate 1: 70 bpm Height: 5' SpO2: 95% Weight: 158 lbs 09/22/2017 Blood Pressure 1: 110/52 Code: 8480-6 BMI: 30.9 Code: 42917-8 Heart Rate 1: 72 bpm Height: 5' SpO2: 99% Weight: 158 lbs 07/06/2017 Blood Pressure 1: 120/85 Code: 8480-6 BMI: 31.4 Code: 57601-6 Heart Rate 1: 74 bpm Height: 5' SpO2: 92% Weight: 161 lbs 06/03/2017 Blood Pressure 1: 120/62 Code: 8480-6 BMI: 31.1 Code: 51410-4 Heart Rate 1: 73 bpm Height: 5' SpO2: 99% Weight: 159 lbs 05/12/2017 Blood Pressure 1: 132/68 Code: 8480-6 BMI: 32.4 Code: 19198-2 Heart Rate 1: 95 bpm Height: 5' SpO2: 97% Weight: 166 lbs 04/15/2017 Blood Pressure 1: 128/84 Code: 8480-6 BMI: 32.4 Code: 53546-6 Heart Rate 1: 62 bpm Height: 5' SpO2: 97% Weight: 166 lbs 03/19/2017 Blood Pressure 1: 112/60 Code: 8480-6 BMI: 32.0 Code: 19838-0 Height: 5' Weight: 164 lbs 02/03/2017 Blood Pressure 1: 128/76 Code: 8480-6 BMI: 33.4 Code: 51759-3 Heart Rate 1: 91 bpm Height: 5' SpO2: 99% Weight: 171 lbs 01/07/2017 Blood Pressure 1: 126/74 Code: 8480-6 BMI: 34.2 Code: 39390-8 Heart Rate 1: 83 bpm Height: 5' SpO2: 97% Weight: 175 lbs 12/17/2016 Blood Pressure 1: 122/72 Code: 8480-6 BMI: 34.0 Code: 87582-6 Heart Rate 1: 78 bpm Height: 5' SpO2: 97% Weight: 174 lbs 09/14/2016 Blood Pressure 1: 128/86 Code: 8480-6 BMI: 33.8 Code: 31237-9 Heart Rate 1: 88 bpm Height: 5' SpO2: 96% Weight: 173 lbs 06/18/2016 Blood Pressure 1: 122/74 Code: 8480-6 BMI: 34.8 Code: 14231-7 Heart Rate 1: 78 bpm Height: 5' SpO2: 98% Weight: 178 lbs 04/16/2016 Blood Pressure 1: 134/68 Code: 8480-6 BMI: 35.0 Code: 58217-5 Heart Rate 1: 67 bpm Height: 5' SpO2: 97% Weight: 179 lbs 03/19/2016 Blood Pressure 1: 132/74 Code: 8480-6 BMI: 34.6 Code: 36259-6 Heart Rate 1: 74 bpm Height: 5' SpO2: 97% Weight: 177 lbs 11/14/2015 Blood Pressure 1: 132/70 Code: 8480-6 BMI: 35.2 Code: 22058-2 Heart Rate 1: 68 bpm Height: 5' Weight: 180 lbs 08/14/2015 Blood Pressure 1: 122/74 Code: 8480-6 BMI: 33.8 Code: 63151-6 Heart Rate 1: 73 bpm Height: 5' SpO2: 93% Weight: 173 lbs 07/17/2015 Blood Pressure 1: 138/78 Code: 8480-6 BMI: 34.0 Code: 80083-9 Heart Rate 1: 85 bpm Height: 5' SpO2: 97% Weight: 174 lbs 03/25/2015 Blood Pressure 1: 130/78 Code: 8480-6 BMI: 33.2 Code: 62849-8 Heart Rate 1: 77 bpm Height: 5' SpO2: 97% Weight: 170 lbs 12/04/2014 Blood Pressure 1: 120/74 Code: 8480-6 BMI: 35.4 Code: 30222-7 Heart Rate 1: 67 bpm Height: 5' SpO2: 94% Weight: 181 lbs 5 oz 08/14/2014 Blood Pressure 1: 132/68 Code: 8480-6 BMI: 32.1 Code: 23509-4 Heart Rate 1: 62 bpm Height: 5'3" [...] nausea 01/27/2018 when she came home from [facility] hypertension Blood Pressure Values not checking [...] Encounters Encounter Performer Loca tion Codes Date 69625 EST. PATIENT, LEVEL III Diagnosis: Right upper quadrant pain[ICD10: R10.11] Gardenia Nicole MD, [facility] CPT-4: 45768 04/27/2018 ([id number] 99637 EST. P ATIENT, LEVEL IV Diagnosis: Essential (primary) hypertension[ICD10: I10] Diagnosis: Right upper quadrant pain[ICD10: R10.11] Mila Nicole MD, [facility] CPT-4: 69765 03/28/2018 ([id number]) 73682 EST. P ATIENT, LEVEL IV Diagnosis: Low back pain[ICD10: M54.5] Diagnosis: Dysuria[ICD10: R30.0] Diagnosis: Type 2 diabetes mellitus with hyperglycemia[ICD10: E11.65] Claudia Nicole MD, [facility] CPT-4: 09519 02/24/2018 ([id number] 30531 EST. P ATIENT, LEVEL IV Diagnosis: Type 2 diabetes mellitus with hyperglycemia[ICD10: E11.65] Diagnosis: Essential (primary) hypertension[ICD10: I10] Diagnosis: Major depressive disorder, recurrent, mild[ICD10: F33.0] Diagnosis: Generalized anxiety disorder[ICD10: F41.1] Claudia Nicole MD, [facility] CPT-4: 30755 01/27/2018 ([id number] 93087 EST. P ATIENT, LEVEL IV Diagnosis: Type 2 diabetes mellitus with hyperglycemia[ICD10: E11.65] Diagnosis: Essential (primary) hypertension[ICD10: I10] Diagnosis: Encounter for immunization[ICD10: Z23] Diagnosis: Carpal tunnel syndrome, left upper limb[ICD10: G56.02] Claudia Nicole MD, [facility] CPT-4: 72466 11/25/2017 ([id number]) 84004 EST. P ATIENT, LEVEL III Diagnosis: Type 2 diabetes mellitus with hyperglycemia[ICD10: E11.65] Claudia Nicole MD, [facility] CPT-4: 93676 10/26/2017 ([id number]) Miscellaneou s no charge Diagnosis: Type 2 diabetes mellitus with hyperglycemia[ICD10: E11.65] Claudia Nicole MD, [facility] CPT-4: 22639 10/18/2017 ([id number]) 75272 EST. P ATIENT, LEVEL IV Diagnosis: Type 2 diabetes mellitus with diabetic autonomic (poly)neuropathy[ICD10: E11.43] Diagnosis: Essential (primary) hypertension[ICD10: I10] Mila Nicole MD, [facility] CPT-4: 29704 09/22/2017 ([id number]) 57867 EST. P ATIENT, LEVEL IV Diagnosis: Type 2 diabetes mellitus with hyperglycemia[ICD10: E11.65] Diagnosis: Paroxysmal atrial fibrillation[ICD10: I48.0] Diagnosis: Essential (primary) hypertension[ICD10: I10] Mila Nicole MD, [facility] CPT-4: 69761 07/06/2017 ([id number]) 23800 EST. P ATIENT, LEVEL IV Diagnosis: Essential (primary) hypertension[ICD10: I10] Diagnosis: Type 2 diabetes mellitus with hyperglycemia[ICD10: E11.65] Diagnosis: Paroxysmal atrial fibrillation[ICD10: I48.0] Claudia Nicole MD, [facility] CPT-4: 65585 06/03/2017 70494 EST. PATIENT, LEVEL III Diagnosis: Generalized anxiety disorder[ICD10: F41.1] Diagnosis: Major depressive disorder, recurrent, moderate[ICD10: F33.1] Diagnosis: Paroxysmal tachycardia, unspecified[ICD10: I47.9] Gardenia Nicole MD, [facility] CPT-4: 56083 05/12/2017 ([id number]) 06746 EST. P ATIENT, LEVEL IV Diagnosis: Essential (primary) hypertension[ICD10: I10] Diagnosis: Cough[ICD10: R05] Diagnosis: Dysuria[ICD10: R30.0] Mila Nicole MD, [facility] CPT-4: 10081 04/15/2017 ([id number]) 51079 EST. P ATIENT, LEVEL IV Diagnosis: Type 2 diabetes mellitus with hyperglycemia[ICD10: E11.65] Diagnosis: Essential (primary) hypertension[ICD10: I10] Mila Nicole MD, [facility] CPT-4: 65540 03/19/2017 ([id number]) 72265 EST. P ATIENT, LEVEL III Diagnosis: Type 2 diabetes mellitus with hyperglycemia[ICD10: E11.65] Mila Nicole MD, [facility] CPT-4: 76475 02/03/2017 10094 EST. PATIENT, LEVEL IV Diagnosis: Generalized anxiety disorder[ICD10: F41.1] Diagnosis: Type 2 diabetes mellitus with hyperglycemia[ICD10: E11.65] Diagnosis: Essential (primary) hypertension[ICD10: I10] Gardenia Nicole MD, [facility] CPT-4: 14432 01/07/2017 ([id number]) 97478 EST. P ATIENT, LEVEL III Diagnosis: Type 2 diabetes mellitus with hyperglycemia[ICD10: E11.65] Diagnosis: Encounter for immunization[ICD10: Z23] Mila Nicole MD, [facility] CPT-4: 97452 12/17/2016 ([id number]) 75809 EST. P ATIENT, LEVEL IV Diagnosis: Type 2 diabetes mellitus with hyperglycemia[ICD10: E11.65] Diagnosis: Essential (primary) hypertension[ICD10: I10] Diagnosis: Major depressive disorder, recurrent, mild[ICD10: F33.0] Mila Nicole MD, [facility] CPT-4: 69485 09/14/2016 ([id number]) 82992 EST. 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 P ATIENT, LEVEL IV Diagnosis: Type 2 diabetes mellitus with hyperglycemia[ICD10: E11.65] Diagnosis: Essential (primary) hypertension[ICD10: I10] Mila Nicole MD, [facility] CPT-4: 57540 04/16/2016 ([id number]) 91129 EST. 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 P ATIENT, LEVEL IV Diagnosis: Type 2 diabetes mellitus with hyperglycemia[ICD10: E11.65] Diagnosis: Encounter for immunization[ICD10: Z23] Diagnosis: Essential (primary) hypertension[ICD10: I10] Mila Nicole MD, [facility] CPT-4: 64544 11/14/2015 ([id number]) 29348 EST. P ATIENT, LEVEL IV Diagnosis: Type 2 diabetes mellitus with hyperglycemia[ICD10: E11.65] Diagnosis: Essential (primary) hypertension[ICD10: I10] Diagnosis: Low back pain[ICD10: M54.5] Mila Nicole MD, [facility] CPT-4: 62843 08/14/2015 ([id number]) 51365 EST. P ATIENT, LEVEL IV Diagnosis: Type 2 diabetes mellitus with hyperglycemia[ICD10: E11.65] Diagnosis: Essential (primary) hypertension[ICD10: I10] Diagnosis: Hypothyroidism, unspecified[ICD10: E03.9] Mila Nicole MD, [facility] CPT-4: 37074 07/17/2015 ([id number]) 20793 EST. P ATIENT, LEVEL IV Diagnosis: Essential (primary) hypertension[ICD10: I10] Diagnosis: Type 2 diabetes mellitus with hyperglycemia[ICD10: E11.65] Diagnosis: Headache[ICD10: R51] Gardenia Nicole MD, [facility] CPT-4: 65099 03/25/2015 ([id number]) 62678 EST. P ATIENT, LEVEL IV Diagnosis: ESSENTIAL HYPERTENSION[ICD9: 401.9] Diagnosis: DIABETES TYPE II[ICD9: 250.00] Diagnosis: Aortic stenosis[ICD9: 424.1] Mila Nicole MD, [facility] CPT-4: 99011 12/04/2014 ([id number]) OFFICE [facility] - LEVEL 4 Diagnosis: ESSENTIAL HYPERTENSION[ICD9: 401.9] Diagnosis: Diabetes mellitus out of control[ICD9: 250.02] Mila Nicole MD, [facility] CPT-4: 26056 08/14/2014 Plan of Care Planned Activity Notes [...] concerns. 04/27/2018 Appointment: [facility] [phone] [facility] [place] [place] (10 min) Simple 04/27/2018 Patient Education: Patient Medication Summary Completed 04/27/2018 App[facility]ment[phone] [facility] [place] (15 min) Moderate 04/05/2018 Visit [...] regimen. 03/28/2018 Appointment: [facility] [phone] [facility] [place] (15 min) Moderate 03/28/2018 Patient Education: Patient Medication Summary Completed 03/28/2018 Patient Education: Hypertension Completed 03/28/2018 Care Plan: ECHO EXAM OF ABDOMEN Pending 03/28/2018 Visit Plan: Low back pain-xray lumb ar spine Dysuria- improved-will culture urine [id number] changes today 02/24/2018 Appointment: Claudia Pruitt WPtel: [phone] [phone] (15 min) Moderate 02/24/2018 Patient Education: Patient [...] current medications. 01/27/2018 Appointment: Claudia Pruitt WPtel: [phone] [phone] (15 min) Moderate 01/27/2018 Patient Education: Patient [...] worse 11/25/2017 Appointment: Claudia Pruitt WPtel: [phone] [phone] [place] (15 min) Moderate 11/25/2017 Patient Education: Patient Medication Summary Completed 11/25/2017 Appointment: [facility] [phone] [facility] [place] (15 min) Moderate 10/28/2017 Visit Plan: [...] appt. 10/26/2017 Appointment: Claud[facility] Pruitt [facility] [phone] [facility] [phone] [place] (15 min) Moderate 10/26/2017 Patient Education: [...] plan. 10/11/2017 Appointment: [facility] Pruitt [facility] [phone] [facility] [phone] [place] (30 min) Complex 10/11/2017 Patient Education: [...] Completed 09/22/2017 Appointment: [facility] [phone] [facility] [place] (15 min) Moderate 09/13/2017 Appointment: Mila Nicole [facility]Ptel: [facility] [place] (15 min) Moderate 09/07/2017 Visit Plan: [...] uncontrolled. 07/06/2017 Appointment: Mila Nicole WPtel: [phone] [facility] (15 min) Moderate 07/06/2017 Patient Education: Patient Medication Summary Completed 07/06/2017 Appointment: Mila Nicole WPtel: [phone] [facility] (15 min) Moderate 06/07/2017 [...] controlled. 06/03/2017 Appointment: Claud[facility] Pruitt [facility] [phone] [facility] [phone] [place] (30 min) Complex 06/03/2017 Patient Education: [...] plan 05/12/2017 Appointment: Gardenia Shah WPtel: [phone] [facility] (30 min) Complex 05/12/2017 Patient Education: Patient [...] medication. 04/15/2017 Appointment: Mila Nicole WPtel: [phone] [facility] (15 min) Moderate 04/15/2017 [...] units daily. 03/19/2017 Appointment: Mila Nicole WPtel: [phone] [facility] (15 min) Moderate 03/19/2017 Patient Education: Patient Medication Summary Completed 03/19/2017 Appointment: Mila Nicole WPtel: [phone] [facility] (15 min) Moderate 02/24/2017 [...] at HS 02/03/2017 Appointment: [facility] [phone] [facility] [place] (15 min) Moderate 02/03/2017 Patient Education: [...] acute concerns. 01/07/2017 Appointment: [facility] Shah [facility] [phone] [facility] [place] (30 min) Complex 01/07/2017 Patient Education: Patient [...] to allow for greater blood glucose control. [id number], 02/2018 junior nordisk 12/17/2016 Appointment: [facility]Ptel[facility] [phone] [facility] (15 min) Moderate 12/17/2016 Patient Education: Patient Medication Summary Completed 12/17/2016 Patient Education: Obesity Completed 12/17/2016 Appointment: [facility]el[facility] [phone] [facility] (15 min) Moderate 12/14/2016 Visit Plan: Diabetes [...] medications. 09/14/2016 Appointment: [facility]el[facility] [phone] [facility] (15 min) Moderate 09/14/2016 Patient Education: Patient [...] home. 06/18/2016 Appointment: [facility]Ptel[facility] [phone] [facility] (15 min) Moderate 06/18/2016 Patient Education: [...] at home. 04/16/2016 Appointment: Mila Nicole WPtel: [facility] (15 min) Moderate 04/16/2016 Patient [...] gabapentin 03/19/2016 Appointment: [facility]Ptel[facility] [phone] [facility] (15 min) Moderate 03/19/2016 Patient Education: [...] home. 11/14/2015 Appointment: [facility]Ptel: [phone] [facility] (15 min) Moderate 11/14/2015 Patient Education: [...] Hgba1c 07/17/2015 Appointment: [facility]Ptel: [phone] [facility] (15 min) Moderate 07/17/2015 Patient Education: [...] levels of control. 03/25/2015 Appointment: (30 min) Ellen 03/25/2015 Patient Education: Patient Medication Summary Completed 03/25/2015 Patient Education: Hypertension Completed 03/25/2015 Appointment: CoreyMila WPtel: [phone] [facility] (15 min) Moderate 01/14/2015 Visit Plan: Diabetes [...] control. 12/04/2014 Appointment: [facility]Ptel: [phone] [facility] (15 min) Moderate 12/04/2014 Patient Education: [...] 08/14/2014 Appointment: [facility]Ptel: [phone] [facility] [place] (S[place] New Patient 08/14/2014 Patient Education: [...] to allow for greater blood glucose control. [id number], 02/2018 junior nordisk CHECK LABS AND UA XRAY LUMBAR . Low back pain-xray lumbar spine Dysuria- improved-will culture urine [id number] changes today . Hypertension - wel l [...] Diabetes Mellitus - controlled - per r keagan FSBS reports. I have recommended for the [...]
--- OUTSIDE RECORDS SUMMARY | 2019-03-16 19:35 | XMS REPORT | CCD ---
Author Author Melinda Nicole Organization Mila Nicole MD, [facility] Address [address] [place] [address] Phone Care Team Providers Care Biostatistics Manager Name Role Phone PP Unavailable CCM Unavailable Summary Purpose Interface Exchange Insurance Providers Payer name Policy type / Coverage type Covered alliance party ID Effective Begin Date Effective End Date WPS Medicare Part B Medicare Part B [id number] Unknown AARP Medicare Part B [id number] Unknown Family history Mother Diagnosis Age At [...] Unknown 3 08/14/[address]: 960002357 Never smoker 08/14/[address]: 983404384 Never drinks alcohol 08/14/2014 Allergies, Adverse Reactions, Alerts Substance Reaction Codes Entered Date Inactivated Date Status * OTHER REACTION - S EE ANSWER BOX Invokana, Victoza Unknown 03/19/2017 No Inactive Date Active Paxil has blurred vision RxNorm: 735276 08/14/2014 No Inactive Date Active Lipitor RxNorm: 49014 08/14/2014 No Inactive Date Active Past Medical [...] Date Stop Date Sta tus Fill Instructions Zetia 10 mg tablet RxNorm: 750717 1 Tablet(s) PO daily 03/28/2018 03/22/2019 Active tramadol 50 mg tablet RxNorm: 665342 1 Tablet(s) PO TID as needed 03/25/2018 No Stop Date Active fluticasone 50 mcg/a ctuation nasal spray,suspension RxNorm: 8720575 INSTILL ONE SPRAY IN EACH NOSTRILTWICE A DAY 03/16/2018 10/11/2018 Active Generic For:FLONASE SPR 0.05% 03/16/2018 8:50:59 AM Keflex 500 mg capsule RxNorm: 193821 1 Capsule(s) PO TID 02/11/2018 02/10/2018 Inactive Keflex 500 mg capsule RxNorm: 059041 1 Capsule(s) PO TID 02/11/2018 02/20/2018 Inactive metoprolol succinate ER 200 mg tablet,extended release 24 hr RxNorm: 857158 1 Tablet(s) PO daily 01/27/2018 No Stop Date Active Eliquis 2.5 mg tablet RxNorm: 4246626 1 Tablet(s) PO BID 01/27/2018 No Stop Date Active digoxin 125 mcg tablet RxNorm: 901756 1 Tablet(s) PO daily 01/27/2018 No Stop Date Active Basaglar KwikPen U-1 00 Insulin 100 unit/mL (3 mL) subcutaneous RxNorm: 2616958 20 Unit(s) SQ daily 11/25/2017 05/23/2018 Active UPDATE RX metformin 500 mg tablet RxNorm: 524207 1 Tablet(s) PO UD 1.5 in morning, noon a nd 1 at bedtime 10/28/2017 10/22/2018 Active Basaglar KwikPen U-1 00 Insulin 100 unit/mL (3 mL) subcutaneous RxNorm: 0363159 18 Unit(s) SQ daily 10/26/2017 11/24/2017 Inactive UPDATE RX levothyroxine 50 mcg tablet RxNorm: 586778 TAKE 1 TABLET BY MOUT H ONCE DAILY 10/15/2017 06/11/2018 Ac tive Generic For:SYNTHROID 50MCG TAB 018 9:59:00 AM escitalopram 10 mg t ablet RxNorm: 698040 1 Tablet(s) PO QPM 09/22/2017 09/16/2018 Active Generic For:LEXAPRO 5MG 01/07/2017 9:05 :43 AM Basaglar KwikPen U-1 00 Insulin 100 unit/mL (3 mL) subcutaneous RxNorm: 4289452 15 Unit(s) SQ daily 09/22/2017 10/25/2017 Inactive potassium chloride E R 20 mEq tablet,extended release RxNorm: 968125 1 Tablet(s) PO daily 06/22/2017 01/17/2018 Inactive Lantus Solostar U-10 0 Insulin 100 unit/mL (3 mL) subcutaneous pen RxNorm: 511243 10 Unit(s) SQ daily 06/08/2017 06/08/2017 Inactive Basaglar KwikPen U-1 00 Insulin 100 unit/mL (3 mL) subcutaneous RxNorm: 2414691 10 Unit(s) SQ daily 06/08/2017 06/07/2017 Inactive Basaglar KwikPen U-1 00 Insulin 100 unit/mL (3 mL) subcutaneous RxNorm: 6682256 10 Unit(s) SQ daily 06/08/2017 09/21/2017 Inactive Lexapro 5 mg tablet RxNorm: 967328 1 Tablet(s) PO daily 06/01/2017 11/27/2017 Inactive Lexapro 5 mg tablet RxNorm: 236066 1 Tablet(s) PO daily 05/12/2017 05/31/2017 Inactive bisoprolol 5 mg-hydr ochlorothiazide 6.25 mg tablet RxNorm: 765465 1 Tablet(s) PO BID 05/04/2017 06/02/2017 Inactive Keflex 500 mg capsule RxNorm: 029353 1 Capsule(s) PO QID 04/15/2017 04/21/2017 Inactive Lantus Solostar 100 unit/mL (3 mL) subcutaneous insulin pen RxNorm: 977035 10 Unit(s) SQ daily 02/03/2017 06/07/2017 Inactive levothyroxine 50 mcg tablet RxNorm: 968658 TAKE 1 TABLET BY MOUT H ONCE DAILY 02/01/2017 09/28/2017 In active Generic For:SYNTHROID 50MCG TAB 017 9:20:59 AM gabapentin 600 mg ta blet RxNorm: 176755 1 Capsule(s) PO TID 01/27/2017 01/21/2018 Inactive Lexapro 5 mg tablet RxNorm: 414663 TAKE 1 TABLET BY MOUTH AT BEDTIME 01/07/2017 09/21/2017 In active Generic For:LEXAPRO 5MG 01/07/2017 9:05 :43 AM Victoza 2-Dariusz 0.6 mg /0.1 mL (18 mg/3 mL) subcutaneous pen injector RxNorm: 085963 1.8 Milligram(s) SQ daily 12/17/2016 02/07/2017 Inactive Victoza 3-Dariusz 0.6 mg /0.1 mL (18 mg/3 mL) subcutaneous pen injector RxNorm: 833951 Milligram(s) SQ 12/17/2016 02/07/2017 Inactive Zetia 10 mg tablet RxNorm: 253778 1 Tablet(s) PO daily 11/17/2016 11/11/2017 Inactive fluticasone 50 mcg/a ctuation nasal spray,suspension RxNorm: 0473567 [place] NASAL ONE SPRAY IN EACH NOSTRIL TWICE DAILY 09/28/2016 04/25/2017 Inactive Victoza 2-Dariusz 0.6 mg /0.1 mL (18 mg/3 mL) subcutaneous pen injector RxNorm: 219935 1.2 Milligram(s) SQ daily 09/14/2016 12/16/2016 Inactive Lexapro 5 mg tablet RxNorm: 827027 1 Tablet(s) PO QHS 09/14/2016 12/12/2016 Inactive metformin 500 mg tablet RxNorm: 753057 1 Tablet(s) PO UD 1.5 in morning, noon a nd 1 at bedtime 09/08/2016 09/02/2017 Inactive glimepiride 4 mg tablet RxNorm: 412075 TAKE 1 TABLET BY MOUTH ONCE DAILY 07/31/2016 09/13/2016 In active Generic For:*AMARYL 4MG 07/31/2016 9:02 :38 AM Victoza 2-Dariusz 0.6 mg /0.1 mL (18 mg/3 mL) subcutaneous pen injector RxNorm: 647801 1.2 Milligram(s) SQ daily 05/18/2016 09/13/2016 Inactive Victoza 2-Dariusz 0.6 mg /0.1 mL (18 mg/3 mL) subcutaneous pen injector RxNorm: 517792 1.2 Milligram(s) SQ daily 04/16/2016 05/17/2016 Inactive levothyroxine 50 mcg tablet RxNorm: 728200 TAKE 1 TABLET BY MOUT H ONCE DAILY 04/08/2016 12/03/2016 In active Generic For:SYNTHROID 50MCG TAB 017 9:05:40 AM levothyroxine 50 mcg tablet RxNorm: 314719 1 Tablet(s) PO daily TAKE 1 TABLET BY MOUTH ONCE DAILY 04/08/2016 12/03/2016 Inactive Generic For:SYNTHROID 50MCG TAB N O T I C E PRESCRIPTION PREVIOUSLY AUTHORIZED BY DOCTOR:HENRY BAIG bisoprolol 5 mg-hydr ochlorothiazide 6.25 mg tablet RxNorm: 930222 1 Tablet(s) PO BID 03/23/2016 03/17/2017 Inactive Victoza 2-Dariusz 0.6 mg /0.1 mL (18 mg/3 mL) subcutaneous pen injector RxNorm: 216324 0.6 Milligram(s) SQ daily 03/19/2016 04/15/2016 Inactive Lexapro 5 mg tablet RxNorm: 079124 1 Tablet(s) PO QHS 03/19/2016 06/16/2016 Inactive gabapentin 600 mg ta blet RxNorm: 641142 1 Capsule(s) PO TID 03/19/2016 01/26/2017 Inactive glimepiride 4 mg tablet RxNorm: 123447 1 Tablet(s) PO daily 12/09/2015 06/05/2016 Inactive Victoza 3-Dariusz 0.6 mg /0.1 mL (18 mg/3 mL) subcutaneous pen injector RxNorm: 009966 0.6 Milligram(s) SQ daily x2 weeks, then 1.2 mg SQ daily 12/02/2015 03/18/2016 Inactive metformin 500 mg tablet RxNorm: 987644 1 Tablet(s) PO UD 1.5 in morning, noon a nd 1 at bedtime 08/14/2015 08/07/2016 Inactive gabapentin 600 mg ta blet RxNorm: 812977 1 Capsule(s) PO TID S HE IS ONLY TAKING 1 QD 08/14/2015 03/18/2016 In active fluticasone 50 mcg/a ctuation nasal spray,suspension RxNorm: 857586 [place] NASAL ONE SPRAY IN EACH NOSTRIL TWICE DAILY 07/26/2015 07/25/2015 Inactive fluticasone 50 mcg/a ctuation nasal spray,suspension RxNorm: 2552740 [place] NASAL ONE SPRAY IN EACH NOSTRIL TWICE DAILY 07/26/2015 02/20/2016 Inactive bisoprolol 5 mg-hydr ochlorothiazide 6.25 mg tablet RxNorm: 749258 1 Tablet(s) PO daily 1 Tablet(s) PO BID 07/17/2015 01/12/2016 Inactive metformin 500 mg tablet RxNorm: 879828 1 Tablet(s) PO TID 1 Tablet(s) PO TID 07/17/2015 08/13/2015 In active Diflucan 100 mg tablet RxNorm: 999458 1 Tablet(s) PO daily 07/17/2015 07/21/2015 Inactive Zetia 10 mg tablet RxNorm: 390699 1 Tablet(s) PO daily 06/10/2015 06/03/2016 Inactive bisoprolol 5 mg-hydr ochlorothiazide 6.25 mg tablet RxNorm: 173118 1 Tablet(s) PO BID 04/18/2015 07/16/2015 Inactive metformin 500 mg tablet RxNorm: 672189 1 Tablet(s) PO TID 03/01/2015 06/28/2015 Inactive glimepiride 4 mg tablet RxNorm: 038008 1 Tablet(s) PO daily 01/31/2015 01/30/2015 Inactive levothyroxine 50 mcg tablet RxNorm: 712958 TAKE 1 TABLET BY MOUT H ONCE DAILY 01/31/2015 09/27/2015 In active Generic For:SYNTHROID 50MCG TAB N O T I C E PRESCRIPTION PREVIOUSLY AUTHORIZED BY DOCTOR:HENRY BAIG glimepiride 4 mg tablet RxNorm: 116091 1 Tablet(s) PO daily 01/31/2015 07/29/2015 Inactive Invokana 100 mg tablet RxNorm: 1092469 1 Tablet(s) PO daily 12/12/2014 07/16/2015 Inactive bisoprolol 5 mg-hydr ochlorothiazide 6.25 mg tablet RxNorm: 508754 1 Tablet(s) PO BID 08/27/2014 02/22/2015 Inactive metformin 500 mg tablet RxNorm: 621026 1 Tablet(s) PO TID 08/10/2014 12/07/2014 Inactive metformin 500 mg tablet RxNorm: 894938 1 Tablet(s) PO TID 08/10/2014 08/09/2014 Inactive Fish Oil 1,000 mg ca psule RxNorm: 1 Capsule(s) PO daily No Start Date Active Protonix 40 mg table t,delayed release RxNorm: 912972 1 Tablet(s) PO QAM No Start Date Active furosemide 40 mg tablet RxNorm: 839547 1 Tablet(s) PO daily No Start Date Active pen needle, diabetic 31 gauge x 1/6" RxNorm: Miscellaneous N o Start Date Active nitroglycerin 0.4 mg sublingual tablet RxNorm: 033900 1 Tablet(s) SL as nee ded chest pain No Start Date Active amlodipine 5 mg tablet RxNorm: 202524 1 Tablet(s) PO daily No Start Date Active Entresto 24 mg-26 mg tablet RxNorm: 3760239 1 Tablet(s) PO BID No Start Date Active aspirin 81 mg chewab le tablet RxNorm: 385577 1 Tablet(s) PO daily No Start Date 06/02/2017 Inactive Eliquis 5 mg tablet RxNorm: 6077734 1 Tablet(s) PO BID No Start Date 01/26/2018 Inactive bisoprolol-hydrochlo rothiazide oral RxNorm: [address] art Date 08/26/2014 Inactive levothyroxine 50 mcg tablet RxNorm: 342390 1 Tablet(s) PO daily No Start Date 01/30/2015 Inactive potassium chloride E R 20 mEq tablet,extended release RxNorm: 825794 1 Tablet(s) PO daily No Start Date 06/21/2017 Inactive digoxin 250 mcg tablet RxNorm: 132723 1 Tablet(s) PO daily No Start Date 01/26/2018 Inactive Invokana 100 mg tablet RxNorm: 9729378 1 Tablet(s) PO daily No Start Date 12/11/2014 Inactive tramadol 50 mg tablet RxNorm: 579743 1 Tablet(s) PO TID as needed No Start Date 03/22/2018 Inactive Victoza 3-Dariusz 0.6 mg /0.1 mL (18 mg/3 mL) subcutaneous pen injector RxNorm: 019198 0.6 Milligram(s) SQ daily x2 weeks, then 1.2 mg SQ daily No Start Date 12/01/2015 Inactive Effient 10 mg tablet RxNorm: 539287 1 Tablet(s) PO QAM No Start Date 01/26/2018 Inactive Zetia 10 mg tablet RxNorm: 201059 1 Tablet(s) PO BID No Start Date 03/18/2016 Inactive metoprolol succinate ER 100 mg tablet,extended release 24 hr RxNorm: 023224 1 Tablet(s) PO daily No Start Date 01/26/2018 Inactive gabapentin 300 mg ca psule RxNorm: 868355 1 Capsule(s) PO BID No Start Date 08/13/2015 Inactive Lasix 40 mg tablet RxNorm: 517526 1 Tablet(s) PO BID No Start Date 04/14/2017 Inactive Coreg 3.125 mg tablet RxNorm: 047152 1 Tablet(s) PO BID with meals No [...] 04/15/2017 stress test and then shipped to [facility] Follow Up 03/19/2017 stress test and then shipped to [place] diabetes mellitus 02/03/2017 headache 01/07/2017 diabetes mellitus 12/17/2016 diabetes mellitus 09/14/2016 diabetes mellitus 06/18/2016 medication follow up 04/16/2016 back pain 03/19/2016 back pain 11/14/2015 back pain 08/14/2015 diabetes mellitus 07/17/2015 Hospital Follow Up 03/25/2015 diabetes mellitus 12/04/2014 diabetes mellitus 08/14/2014 Results Observation Observation Code Item Item Code Result Date Culture Urine [id number] URI NE CULTURE SEE NOTES 02/28/2018 Urine [...] 28.8 pg 02/24/2018 Cbc With Differential Ord2 Coal% 5.7 % 02/24/2018 Cbc With Differential Ord2 [...] 1.57 K/ul 02/24/2018 Cbc With Differential Ord2 Coal ABS# 0.4 K/ul 02/24/2018 Cbc With Differential Ord2 Eos ABS# 0.1 K/ul 02/24/2018 Cbc With Differential Ord2 Baso ABS# 0.0 K/ul 02/24/2018 Comp Metabolic Hsx727 NA 138 mEq/L 02/24/2018 Comp Metabolic Dsz279 K 4.4 mEq/L 02/24/2018 Comp Metabolic Ylc346 CL 100 mEq/L 02/24/2018 Comp Metabolic Ubq042 CO2 27.0 mEq/L 02/24/2018 Comp Metabolic Dyp278 AN ION GAP 15 02/24/2018 Comp Metabolic Kbq244 GL UCOSE 98 mg/dL 02/24/2018 Comp Metabolic Xnt809 Cr eat 1.0 mg/dL 02/24/2018 Comp Metabolic Pil820 eG FR 55 ml/min/1.73m2 02/24 Comp Metabolic Sjb665 BUN 25 mg/dL 02/24/2018 Comp Metabolic Fsd508 B/ C Ratio 24.3 Ratio 02/24/2018 Comp Metabolic Zkd540 CA LCIUM 9.4 mg/dL 02/24/2018 Comp Metabolic Sgw994 AL K PHOS 46 U/L 02/24/2018 Comp Metabolic Afd223 T(SGOT) 13 U/L 02/24/2018 Comp Metabolic Zxq488 AL T(SGPT) 12 U/L 02/24/2018 Comp Metabolic Zik762 BI LI T 0.4 mg/dL 02/24/2018 Comp Metabolic Gta284 AL BUMIN 4.5 g/dL 02/24/2018 Comp Metabolic Pku917 TP RO 6.6 g/dL 02/24/2018 Comp Metabolic Akv169 GL OB 2.1 g/dL 02/24/2018 Comp Metabolic Ubi701 A/ G Ratio 2.1 Ratio 02/24/2018 Comp Metabolic Mvw563 Os mo 280 mOsmo 02/24/2018 Culture Urine [id number] URI NE CULTURE SEE NOTES 02/11/2018 Culture Urine [id number] Con tinued Results 02/11/2018 Urine Culture Ucult Comp lete >100,000 col/ml aerobic grow th sent to ref lab 02/08/2018 %Hba1C Rsw850 % HbA1c 03543-2 6.8 % 01/12/2018 %Hba1C Fjf845 Gluc Ave 148 mg/dL 01/12/2018 Metabolic Ord15 [...] 89.9 fl 01/11/2018 Cbc With Differential Ord2 Coal% 7.8 % 01/11/2018 Cbc With Differential Ord2 [...] 1.70 K/ul 01/11/2018 Cbc With Differential Ord2 Coal ABS# 0.4 K/ul 01/11/2018 Cbc With Differential Ord2 Eos ABS# 0.1 K/ul 01/11/2018 Cbc With Differential Ord2 Baso ABS# 0.0 K/ul 01/11/2018 Magnesium Ord90 Mag 1.7 mg/dL 01/11/2018 Test(s) Not Perfromed [id number] Test(s) Not Performed Test(s) Not Performed. See Below: 09/20/2017 Test(s) Not Perfromed [id number] TEST NAME BNP 09/20/2017 Test(s) Not Perfromed [id number] Rejection Reason Patient Refused due to lack of coving diganosis 09/20/2017 Test(s) Not Perfromed [id number] COMMENT Dorita Notified 11/2017 Test(s) Not Perfromed [id number] Hot Kettle Tender Miguel Mclaughlin 09/20/2017 B Type Natriuretic Peptide Qwg0627 B-EKG MANAGER 889.00 pg/ml 8 Cbc With Differential Ord2 WBC 5.72 K/ul 09/20/2017 Cbc With Differential Ord2 RBC 3.88 M/ul 09/20/2017 Cbc With Differential Ord2 HGB 11.2 g/dl 09/20/2017 Cbc With Differential Ord2 Neut% 62.4 % 09/20/2017 Cbc With Differential Ord2 HCT 35.0 % 09/20/2017 Cbc With Differential Ord2 Lymph% 29.4 % 09/20/2017 Cbc With Differential Ord2 MCV 90.2 fl 09/20/2017 Cbc With Differential Ord2 Coal% 5.6 % 09/20/2017 Cbc With Differential Ord2 [...] 1.68 K/ul 09/20/2017 Cbc With Differential Ord2 Coal ABS# 0.3 K/ul 09/20/2017 Cbc With Differential Ord2 Eos ABS# 0.1 K/ul 09/20/2017 Cbc With Differential Ord2 Baso ABS# 0.0 K/ul 09/20/2017 %Hba1C Lnh984 % HbA1c 47268-2 7.9 % 09/20/2017 %Hba1C Cme553 Gluc Ave 180 mg/dL 09/20/2017 Magnesium Ord90 [...] 28.3 pg 07/07/2017 Cbc With Differential Ord2 Coal% 7.9 % 07/07/2017 Cbc With Differential Ord2 [...] 1.34 K/ul 07/07/2017 Cbc With Differential Ord2 Coal ABS# 0.4 K/ul 07/07/2017 Cbc With Differential Ord2 Eos ABS# 0.1 K/ul 07/07/2017 Cbc With Differential Ord2 Baso ABS# 0.0 K/ul 07/07/2017 Comp Metabolic Qwq939 NA 142 mEq/L 07/07/2017 Comp Metabolic Cub652 K 4.3 mEq/L 07/07/2017 Comp Metabolic Zek235 CL 105 mEq/L 07/07/2017 Comp Metabolic Tyi353 CO2 28.0 mEq/L 07/07/2017 Comp Metabolic Adz344 AN ION GAP 13 07/07/2017 Comp Metabolic Jyd964 GL UCOSE 197 mg/dL 07/07/2017 Comp Metabolic Rzv436 Cr eat 1.1 mg/dL 07/07/2017 Comp Metabolic Jky757 eG FR 51 ml/min/1.73m2 07/07 Comp Metabolic Lkn252 BUN 21 mg/dL 07/07/2017 Comp Metabolic Ovd062 B/ C Ratio 18.9 Ratio 07/07/2017 Comp Metabolic Dne785 CA LCIUM 8.9 mg/dL 07/07/2017 Comp Metabolic Imj290 AL K PHOS 51 U/L 07/07/2017 Comp Metabolic Ind841 T(SGOT) 11 U/L 07/07/2017 Comp Metabolic Xax600 AL T(SGPT) 11 U/L 07/07/2017 Comp Metabolic Xcc292 BI LI T 0.3 mg/dL 07/07/2017 Comp Metabolic Ipm224 AL BUMIN 4.2 g/dL 07/07/2017 Comp Metabolic Mak834 TP RO 6.0 g/dL 07/07/2017 Comp Metabolic Wwh649 GL OB 1.8 g/dL 07/07/2017 Comp Metabolic Rex685 A/ G Ratio 2.3 Ratio 07/07/2017 Comp Metabolic Tuc965 Os mo 292 mOsmo 07/07/2017 Digoxin Ord9 DIGOXIN 1.3 NG/ML 07/07/2017 Tsh Ord6 TSH (3rd IS) 2.19 uIU/mL 07/07/2017 B Type Natriuretic Peptide Ljq4933 B-EKG MANAGER 801.00 pg/ml 8 Culture Urine [id number] URI NE CULTURE SEE NOTES 04/19/2017 Culture Urine [id number] Con tinued Results 04/19/2017 Urine Culture Ucult Comp lete >100,000 col/ml aerobic grow th sent to ref lab 04/16/2017 Comp Metabolic Kir554 NA 140 mEq/L 01/26/2017 Comp Metabolic Opm949 K 4.6 mEq/L 01/26/2017 Comp Metabolic Gzf126 CL 102 mEq/L 01/26/2017 Comp Metabolic Qxt394 CO2 28.0 mEq/L 01/26/2017 Comp Metabolic Ykk033 AN ION GAP 15 01/26/2017 Comp Metabolic Ktt321 GL UCOSE 173 mg/dL 01/26/2017 Comp Metabolic Mhf135 Cr eat 1.0 mg/dL 01/26/2017 Comp Metabolic Vih811 eG FR 56 ml/min/1.73m2 01/26 Comp Metabolic Oml082 BUN 23 mg/dL 01/26/2017 Comp Metabolic Cyp467 B/ C Ratio 22.5 Ratio 01/26/2017 Comp Metabolic Nse439 CA LCIUM 9.4 mg/dL 01/26/2017 Comp Metabolic Vzj901 AL K PHOS 52 U/L 01/26/2017 Comp Metabolic Nkf175 T(SGOT) 12 U/L 01/26/2017 Comp Metabolic Vsv368 AL T(SGPT) 12 U/L 01/26/2017 Comp Metabolic Rng350 BI LI T 0.5 mg/dL 01/26/2017 Comp Metabolic Xkg579 AL BUMIN 4.4 g/dL 01/26/2017 Comp Metabolic Vkt427 TP RO 6.5 g/dL 01/26/2017 Comp Metabolic Wxr780 GL OB 2.1 g/dL 01/26/2017 Comp Metabolic Hhd611 A/ G Ratio 2.1 Ratio 01/26/2017 Comp Metabolic Uwt769 Os mo 287 mOsmo 01/26/2017 Cbc With [...] 29.2 pg 01/26/2017 Cbc With Differential Ord2 Coal% 4.9 % 01/26/2017 Cbc With Differential Ord2 [...] 1.75 K/ul 01/26/2017 Cbc With Differential Ord2 Coal ABS# 0.4 K/ul 01/26/2017 Cbc With Differential Ord2 Eos ABS# 0.1 K/ul 01/26/2017 Cbc With Differential Ord2 Baso ABS# 0.0 K/ul 01/26/2017 %Hba1C Pzz891 % HbA1c 22235-2 7.8 % 01/26/2017 %Hba1C Qcs064 Gluc Ave 177 mg/dL 01/26/2017 Lipid Ord30 CHOL 239 mg/dL 01/26/2017 Lipid Ord30 HDL 40.0 mg/dl 01/26/2017 Lipid Ord30 TRIG 325 mg/dL 01/26/2017 Lipid Ord30 LDL 134 mg/dL 01/26/2017 Lipid Ord30 C/HDL 6.0 Ratio 01/26/2017 Free T4 Xgt520 FREE T4 0.95 ng/dL 01/26/2017 Tsh Ord6 [...] Metabolic Ord15 CALCIUM 9.0 mg/dL 09/08/2016 %Hba1C Pio611 % HbA1c 86563-3 7.5 % 09/08/2016 %Hba1C Vdn941 Gluc Ave 169 mg/dL 09/08/2016 Tsh Ord6 hTSH II 2.64 uIU/mL 03/13/2016 %Hba1C Kdm202 % HbA1c 69649-0 8.2 % 03/13/2016 %Hba1C Wei487 Gluc Ave 189 mg/dL 03/13/2016 Lipid Ord30 CHOL 233 mg/dL 03/13/2016 Lipid Ord30 HDL 46.0 mg/dl 03/13/2016 Lipid Ord30 TRIG 276 mg/dL 03/13/2016 Lipid Ord30 LDL 132 mg/dL 03/13/2016 Lipid Ord30 C/HDL 5.1 Ratio 03/13/2016 Free T4 But638 FREE T4 0.94 ng/dL 03/13/2016 Cbc With [...] 29.5 % 03/13/2016 Cbc With Differential Ord2 Coal% 6.1 % 03/13/2016 Cbc With Differential Ord2 [...] 1.63 K/ul 03/13/2016 Cbc With Differential Ord2 Coal ABS# 0.3 K/ul 03/13/2016 Cbc With Differential Ord2 Eos ABS# 0.1 K/ul 03/13/2016 Cbc With Differential Ord2 Baso ABS# 0.0 K/ul 03/13/2016 Comp Metabolic Yow752 NA 139 mEq/L 03/13/2016 Comp Metabolic Ybw095 K 4.3 mEq/L 03/13/2016 Comp Metabolic Lwj853 CL 103 mEq/L 03/13/2016 Comp Metabolic Iaa566 CO2 28.0 mEq/L 03/13/2016 Comp Metabolic Sie243 AN ION GAP 12 03/13/2016 Comp Metabolic Bcb895 GL UCOSE 200 mg/dL 03/13/2016 Comp Metabolic Osm502 Cr eat 0.9 mg/dL 03/13/2016 Comp Metabolic Ohf902 eG FR 69 ml/min/1.73m2 03/13 Comp Metabolic Jut977 BUN 19 mg/dL 03/13/2016 Comp Metabolic Bat846 B/ C Ratio 22.4 Ratio 03/13/2016 Comp Metabolic Wod184 CA LCIUM 9.0 mg/dL 03/13/2016 Comp Metabolic Apg900 AL K PHOS 57 U/L 03/13/2016 Comp Metabolic Wnh104 T(SGOT) 13 U/L 03/13/2016 Comp Metabolic Cnq571 AL T(SGPT) 16 U/L 03/13/2016 Comp Metabolic Ogl934 BI LI T 0.4 mg/dL 03/13/2016 Comp Metabolic Mjz794 AL BUMIN 4.2 g/dL 03/13/2016 Comp Metabolic Euy860 TP RO 6.3 g/dL 03/13/2016 Comp Metabolic Bxw733 GL OB 2.1 g/dL 03/13/2016 Comp Metabolic Pqz810 A/ G Ratio 2.0 Ratio 03/13/2016 Comp Metabolic Juy004 Os mo 285 mOsmo 03/13/2016 %Hba1C Hku663 % HbA1c 96443-5 8.3 % 11/14/2015 %Hba1C Xgn499 Gluc Ave 192 mg/dL 11/14/2015 Lipid Ord30 CHOL 210 mg/dL 07/19/2015 Lipid Ord30 HDL 43.0 mg/dl 07/19/2015 Lipid Ord30 TRIG 311 mg/dL 07/19/2015 Lipid Ord30 LDL 105 mg/dL 07/19/2015 Lipid Ord30 C/HDL 4.9 Ratio 07/19/2015 %Hba1C Yow307 % HbA1c 70656-3 7.6 % 07/19/2015 %Hba1C Tuw147 Gluc Ave 171 mg/dL 07/19/2015 Cbc With [...] 28.8 pg 07/19/2015 Cbc With Differential Ord2 Coal% 6.1 % 07/19/2015 Cbc With Differential Ord2 [...] 1.63 K/ul 07/19/2015 Cbc With Differential Ord2 Coal ABS# 0.3 K/ul 07/19/2015 Cbc With Differential Ord2 Eos ABS# 0.1 K/ul 07/19/2015 Cbc With Differential Ord2 Baso ABS# 0.0 K/ul 07/19/2015 Cbc With Differential Ord2 New Analyzer Notice Please note new ref ranges s tarting 03-27-2015 due to implemntation of new five part differential hematolgy analyzer. 07/19/2015 Comp Metabolic Mek625 NA 138 mEq/L 07/19/2015 Comp Metabolic Qee293 K 4.3 mEq/L 07/19/2015 Comp Metabolic Dga091 CL 100 mEq/L 07/19/2015 Comp Metabolic Ris992 CO2 33.0 mEq/L 07/19/2015 Comp Metabolic Lcr616 AN ION GAP 9 07/19/2015 Comp Metabolic Ggp153 GL UCOSE 149 mg/dL 07/19/2015 Comp Metabolic Yjv561 Cr eat 0.9 mg/dL 07/19/2015 Comp Metabolic Ffb610 eG FR 62 ml/min/1.73m2 07/18 Comp Metabolic Sbi252 BUN 19 mg/dL 07/19/2015 Comp Metabolic Wzs873 B/ C Ratio 20.2 Ratio 07/19/2015 Comp Metabolic Wmp642 CA LCIUM 9.5 mg/dL 07/19/2015 Comp Metabolic Vcu108 AL K PHOS 52 U/L 07/19/2015 Comp Metabolic Rze386 T(SGOT) 15 U/L 07/19/2015 Comp Metabolic Qox375 AL T(SGPT) 14 U/L 07/19/2015 Comp Metabolic Bhv959 BI LI T 0.5 mg/dL 07/19/2015 Comp Metabolic Amx406 AL BUMIN 4.4 g/dL 07/19/2015 Comp Metabolic Byw096 TP RO 6.4 g/dL 07/19/2015 Comp Metabolic Kcd032 GL OB 2.0 g/dL 07/19/2015 Comp Metabolic Mtc165 A/ G Ratio 2.2 Ratio 07/19/2015 Comp Metabolic Sit946 Os mo 281 mOsmo 07/19/2015 Free T4 Sun659 FREE T4 0.92 ng/dL 07/19/2015 Tsh Ord6 hTSH II 1.95 uIU/mL 07/19/2015 Microalbumin Luu109 Micr oAlb 0.4 mg/dL 07/19/2015 Comp Metabolic Fie294 NA 137 mEq/L 12/04/2014 Comp Metabolic Eec723 K 4.0 mEq/L 12/04/2014 Comp Metabolic Fvs024 CL 100 mEq/L 12/04/2014 Comp Metabolic Ecv817 CO2 29.0 mEq/L 12/04/2014 Comp Metabolic Vps217 AN ION GAP 12 12/04/2014 Comp Metabolic Gza834 GL UCOSE 171 mg/dL 12/04/2014 Comp Metabolic Wuo848 Cr eat 1.0 mg/dL 12/04/2014 Comp Metabolic Thp711 eG FR 60 ml/min/1.73m2 12/04 Comp Metabolic Ppe427 BUN 25 mg/dL 12/04/2014 Comp Metabolic Qpi925 B/ C Ratio 25.8 Ratio 12/04/2014 Comp Metabolic Esr135 CA LCIUM 9.4 mg/dL 12/04/2014 Comp Metabolic Zfj179 AL K PHOS 60 U/L 12/04/2014 Comp Metabolic Sev251 T(SGOT) 13 U/L 12/04/2014 Comp Metabolic Dap615 AL T(SGPT) 17 U/L 12/04/2014 Comp Metabolic Abg772 BI LI T 0.4 mg/dL 12/04/2014 Comp Metabolic Fvz170 AL BUMIN 4.4 g/dL 12/04/2014 Comp Metabolic Qhs373 TP RO 6.9 g/dL 12/04/2014 Comp Metabolic Mis430 GL OB 2.5 g/dL 12/04/2014 Comp Metabolic Unc648 A/ G Ratio 1.8 Ratio 12/04/2014 Comp Metabolic Xgs151 Os mo 282 mOsmo 12/04/2014 Tsh Ord6 hTSH II 1.78 uIU/mL 12/04/2014 %Hba1C Eqc699 % HbA1c 68293-5 8.3 % 12/04/2014 %Hba1C Ypw863 Gluc Ave 192 mg/dL 12/04/2014 Free T4 Fxn113 FREE T4 0.85 ng/dL 12/04/2014 Lipid Ord30 [...] No mental status change 04/15/2017 Psychiatric anxiety 0203/2017 Psychiatric depression 0 04/15/2017 Constitutional recent illness [...] No alteration of consciousness 09/14/2016 Psychiatric anxiety 05/2016 Psychiatric depression 0 09/14/2016 Constitutional No [...] Date URINALYSIS NONAUTO W /O SCOPE CPT-4: 83108 04/28/2018 URINALYSIS NONAUTO W /O SCOPE CPT-4: 45571 02/24/2018 URINALYSIS NONAUTO W /O SCOPE CPT-4: 52741 02/07/2018 ADMIN INFLUENZA VIRU S VAC CPT-4: G0008 11/25/2017 FLU VAC NO PRSV 4 VA L 3 YRS+ CPT-4: 22911 11/25/2017 GLUC MONITOR CONT PH YS I&R CPT-4: 83782 10/26/2017 GLUCOSE MONITORING CONT CPT-4: 99836 10/11/2017 URINALYSIS NONAUTO W /O SCOPE CPT-4: 04174 04/15/2017 FLU VAC NO PRSV 4 VA L 3 YRS+ CPT-4: 90699 12/17/2016 ADMIN INFLUENZA VIRU S VAC CPT-4: G0008 12/17/2016 FLU VACC PRSV FREE I NC ANTIG Formatting Model/CDA Sections, Assigned to/Nery Daniels CPT-4: [id number] 11/14/2015 ADMIN INFLUENZA VIRU S VAC CPT-4: G0008 11/14/2015 ADMIN INFLUENZA VIRU S VAC Formatting Model/CDA Sections, Assigned to/Nery Daniels CPT-4: [id number] 12/04/2014 FLU VACC 4 ANABELLE 3 YRS PLUS IM SNOMED CT: [id number] CPT-4: 63414 12/04/2014 Vital Signs Date Vital 04/27/2018 Blood Pressure 1: 118/44 Code: 8480-6 BMI: 28.3 Code: 91464-2 Heart Rate 1: 77 bpm Height: 5' SpO2: 99% Weight: 145 lbs 03/28/2018 Blood Pressure 1: 140/74 Code: 8480-6 BMI: 28.1 Code: 91692-7 Heart Rate 1: 87 bpm Height: 5' SpO2: 99% Weight: 144 lbs 02/24/2018 Blood Pressure 1: 130/62 Code: 8480-6 BMI: 28.9 Code: 30900-6 Heart Rate 1: 57 bpm Height: 5' SpO2: 99% Weight: 148 lbs 01/27/2018 Blood Pressure 1: 142/70 Code: 8480-6 BMI: 29.5 Code: 99654-7 Heart Rate 1: 61 bpm Height: 5' SpO2: 99% Weight: 151 lbs 11/25/2017 Blood Pressure 1: 148/72 Code: 8480-6 BMI: 30.9 Code: 08991-1 Heart Rate 1: 62 bpm Height: 5' SpO2: 98% Weight: 158 lbs 10/26/2017 Blood Pressure 1: 156/74 Code: 8480-6 BMI: 31.2 Code: 47807-2 Heart Rate 1: 71 bpm Height: 5' SpO2: 98% Weight: 160 lbs 10/11/2017 Blood Pressure 1: 128/70 Code: 8480-6 BMI: 30.9 Code: 15690-4 Heart Rate 1: 70 bpm Height: 5' SpO2: 95% Weight: 158 lbs 09/22/2017 Blood Pressure 1: 110/52 Code: 8480-6 BMI: 30.9 Code: 01745-4 Heart Rate 1: 72 bpm Height: 5' SpO2: 99% Weight: 158 lbs 07/06/2017 Blood Pressure 1: 120/85 Code: 8480-6 BMI: 31.4 Code: 10313-9 Heart Rate 1: 74 bpm Height: 5' SpO2: 92% Weight: 161 lbs 06/03/2017 Blood Pressure 1: 120/62 Code: 8480-6 BMI: 31.1 Code: 75255-4 Heart Rate 1: 73 bpm Height: 5' SpO2: 99% Weight: 159 lbs 05/12/2017 Blood Pressure 1: 132/68 Code: 8480-6 BMI: 32.4 Code: 42696-4 Heart Rate 1: 95 bpm Height: 5' SpO2: 97% Weight: 166 lbs 04/15/2017 Blood Pressure 1: 128/84 Code: 8480-6 BMI: 32.4 Code: 17607-2 Heart Rate 1: 62 bpm Height: 5' SpO2: 97% Weight: 166 lbs 03/19/2017 Blood Pressure 1: 112/60 Code: 8480-6 BMI: 32.0 Code: 34781-6 Height: 5' Weight: 164 lbs 02/03/2017 Blood Pressure 1: 128/76 Code: 8480-6 BMI: 33.4 Code: 81126-5 Heart Rate 1: 91 bpm Height: 5' SpO2: 99% Weight: 171 lbs 01/07/2017 Blood Pressure 1: 126/74 Code: 8480-6 BMI: 34.2 Code: 64153-4 Heart Rate 1: 83 bpm Height: 5' SpO2: 97% Weight: 175 lbs 12/17/2016 Blood Pressure 1: 122/72 Code: 8480-6 BMI: 34.0 Code: 80261-9 Heart Rate 1: 78 bpm Height: 5' SpO2: 97% Weight: 174 lbs 09/14/2016 Blood Pressure 1: 128/86 Code: 8480-6 BMI: 33.8 Code: 18191-6 Heart Rate 1: 88 bpm Height: 5' SpO2: 96% Weight: 173 lbs 06/18/2016 Blood Pressure 1: 122 Code: 8480-6 BMI: 34.8 Code: 86180-8 Heart Rate 1: 78 bpm Height: 5' SpO2: 98% Weight: 178 lbs 04/16/2016 Blood Pressure 1: 134/68 Code: 8480-6 BMI: 35.0 Code: 22141-4 Heart Rate 1: 67 bpm Height: 5' SpO2: 97% Weight: 179 lbs 03/19/2016 Blood Pressure 1: 132/74 Code: 8480-6 BMI: 34.6 Code: 94734-6 Heart Rate 1: 74 bpm Height: 5' SpO2: 97% Weight: 177 lbs 11/14/2015 Blood Pressure 1: 132/70 Code: 8480-6 BMI: 35.2 Code: 61248-9 Heart Rate 1: 68 bpm Height: 5' Weight: 180 lbs 08/14/2015 Blood Pressure 1: 122/74 Code: 8480-6 BMI: 33.8 Code: 78394-4 Heart Rate 1: 73 bpm Height: 5' SpO2: 93% Weight: 173 lbs 07/17/2015 Blood Pressure 1: 138/78 Code: 8480-6 BMI: 34.0 Code: 27170-9 Heart Rate 1: 85 bpm Height: 5' SpO2: 97% Weight: 174 lbs 03/25/2015 Blood Pressure 1: 130/78 Code: 8480-6 BMI: 33.2 Code: 25986-8 Heart Rate 1: 77 bpm Height: 5' SpO2: 97% Weight: 170 lbs 12/04/2014 Blood Pressure 1: 120/74 Code: 8480-6 BMI: 35.4 Code: 55095-1 Heart Rate 1: 67 bpm Height: 5' SpO2: 94% Weight: 181 lbs 5 oz 08/14/2014 Blood Pressure 1: 132/68 Code: 8480-6 BMI: 32.1 Code: 30891-6 Heart Rate 1: 62 bpm Height: 5'3" [...] nausea 01/27/2018 when she came home from [facility] hypertension Blood Pressure Values not [...] Encounters Encounter Performer Loca tion Codes Date EST. PATIENT, LEVEL III Diagnosis: Right upper quadrant pain[ICD10: R10.11] Gardenia Nicole MD, [facility] CPT-4: 56232 04/27/2018 ([id number]) 36187 EST. P ATIENT, LEVEL IV Diagnosis: Essential (primary) hypertension[ICD10: I10] Diagnosis: Right upper quadrant pain[ICD10: R10.11] Mila Nicole MD, [facility] CPT-4: 08426 03/28/2018 ([id number]) 69886 EST. P ATIENT, LEVEL IV Diagnosis: Low back pain[ICD10: M54.5] Diagnosis: Dysuria[ICD10: R30.0] Diagnosis: Type 2 diabetes mellitus with hyperglycemia[ICD10: E11.65] Claudia Nicole MD, [facility] CPT-4: 61576 02/24/2018 ([id number]) 65101 EST. 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 P ATIENT, LEVEL IV Diagnosis: Type 2 diabetes mellitus with hyperglycemia[ICD10: E11.65] Diagnosis: Essential (primary) hypertension[ICD10: I10] Diagnosis: Encounter for immunization[ICD10: Z23] Diagnosis: Carpal tunnel syndrome, left upper limb[ICD10: G56.02] Claudia Nicole MD, [facility] CPT-4: 04200 11/25/2017 ([id number]) 11260 EST. P ATIENT, LEVEL III Diagnosis: Type 2 diabetes mellitus with hyperglycemia[ICD10: E11.65] Claudia Nicole MD, [facility] CPT-4: 06739 10/26/2017 ([id number]) Miscellaneou s no charge Diagnosis: Type 2 diabetes mellitus with hyperglycemia[ICD10: E11.65] Claudia Nicole MD, [facility] CPT-4: 11332 10/18/2017 ([id number]) 33984 EST. P ATIENT, LEVEL IV Diagnosis: Type 2 diabetes mellitus with diabetic autonomic (poly)neuropathy[ICD10: E11.43] Diagnosis: Essential (primary) hypertension[ICD10: I10] Mila Nicole MD, [facility] CPT-4: 92064 09/22/2017 ([id number]) 78416 EST. P ATIENT, LEVEL IV Diagnosis: Type 2 diabetes mellitus with hyperglycemia[ICD10: E11.65] Diagnosis: Paroxysmal atrial fibrillation[ICD10: I48.0] Diagnosis: Essential (primary) hypertension[ICD10: I10] Mila Nicole MD, [facility] CPT-4: 19961 07/06/2017 ([id number]) 27629 EST. P ATIENT, LEVEL IV Diagnosis: Essential (primary) hypertension[ICD10: I10] Diagnosis: Type 2 diabetes mellitus with hyperglycemia[ICD10: E11.65] Diagnosis: Paroxysmal atrial fibrillation[ICD10: I48.0] Claudia Nicole MD, [facility] CPT-4: 99331 06/03/2017 83634 EST. PATIENT, LEVEL III Diagnosis: Generalized anxiety disorder[ICD10: F41.1] Diagnosis: Major depressive disorder, recurrent, moderate[ICD10: F33.1] Diagnosis: Paroxysmal tachycardia, unspecified[ICD10: I47.9] Gardenia Nicole MD, [facility] CPT-4: 45764 05/12/2017 ([id number]) 21926 EST. P ATIENT, LEVEL IV Diagnosis: Essential (primary) hypertension[ICD10: I10] Diagnosis: Cough[ICD10: R05] Diagnosis: Dysuria[ICD10: R30.0] Mila Nicole MD, [facility] CPT-4: 60415 04/15/2017 ([id number]) 83099 EST. P ATIENT, LEVEL IV Diagnosis: Type 2 diabetes mellitus with hyperglycemia[ICD10: E11.65] Diagnosis: Essential (primary) hypertension[ICD10: I10] Mila Nicole MD, [facility] CPT-4: 83656 03/19/2017 ([id number]) 65379 EST. P ATIENT, LEVEL III Diagnosis: Type 2 diabetes mellitus with hyperglycemia[ICD10: E11.65] Mila Nicole MD, [facility] CPT-4: 13946 02/03/2017 64629 EST. PATIENT, LEVEL IV Diagnosis: Generalized anxiety disorder[ICD10: F41.1] Diagnosis: Type 2 diabetes mellitus with hyperglycemia[ICD10: E11.65] Diagnosis: Essential (primary) hypertension[ICD10: I10] Gardenia Nicole MD, [facility] CPT-4: 45224 01/07/2017 ([id number]) 17749 EST. P ATIENT, LEVEL III Diagnosis: Type 2 diabetes mellitus with hyperglycemia[ICD10: E11.65] Diagnosis: Encounter for immunization[ICD10: Z23] Mila Nicole MD, [facility] CPT-4: 88818 12/17/2016 ([id number]) 94709 EST. P ATIENT, LEVEL IV Diagnosis: Type 2 diabetes mellitus with hyperglycemia[ICD10: E11.65] Diagnosis: Essential (primary) hypertension[ICD10: I10] Diagnosis: Major depressive disorder, recurrent, mild[ICD10: F33.0] Mila Nicole MD, [facility] CPT-4: 98829 09/14/2016 ([id number]) 88790 EST. 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 P ATIENT, LEVEL IV Diagnosis: Type 2 diabetes mellitus with hyperglycemia[ICD10: E11.65] Diagnosis: Essential (primary) hypertension[ICD10: I10] Mila Nicole MD, [facility] CPT-4: 93758 04/16/2016 ([id number]) 76406 EST. 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 P ATIENT, LEVEL IV Diagnosis: Type 2 diabetes mellitus with hyperglycemia[ICD10: E11.65] Diagnosis: Encounter for immunization[ICD10: Z23] Diagnosis: Essential (primary) hypertension[ICD10: I10] Mila Nicole MD, [facility] CPT-4: 82145 11/14/2015 ([id number]) 58340 EST. P ATIENT, LEVEL IV Diagnosis: Type 2 diabetes mellitus with hyperglycemia[ICD10: E11.65] Diagnosis: Essential (primary) hypertension[ICD10: I10] Diagnosis: Low back pain[ICD10: M54.5] Mila Nicole MD, [facility] CPT-4: 39935 08/14/2015 ([id number]) 31901 EST. P ATIENT, LEVEL IV Diagnosis: Type 2 diabetes mellitus with hyperglycemia[ICD10: E11.65] Diagnosis: Essential (primary) hypertension[ICD10: I10] Diagnosis: Hypothyroidism, unspecified[ICD10: E03.9] Mila Nicole MD, [facility] CPT-4: 73194 07/17/2015 ([id number]) 54859 EST. P ATIENT, LEVEL IV Diagnosis: Essential (primary) hypertension[ICD10: I10] Diagnosis: Type 2 diabetes mellitus with hyperglycemia[ICD10: E11.65] Diagnosis: Headache[ICD10: R51] Gardenia Nicole MD, [facility] CPT-4: 10699 03/25/2015 ([id number]) 77544 EST. P ATIENT, LEVEL IV Diagnosis: ESSENTIAL HYPERTENSION[ICD9: 401.9] Diagnosis: DIABETES TYPE II[ICD9: 250.00] Diagnosis: Aortic stenosis[ICD9: 424.1] Mila Nicole MD, [facility] CPT-4: 74947 12/04/2014 ([id number]) OFFICE VISI T, [facility] - LEVEL 4 Diagnosis: ESSENTIAL HYPERTENSION[ICD9: 401.9] Diagnosis: Diabetes mellitus out of control[ICD9: 250.02] Mila Nicole MD, C CPT-4: 58507 08/14/2014 Plan of Care Planned Activity Notes [...] concerns. 04/27/2018 Appointment: [phone] [facility] [place] (10 min) Simple 04/27/2018 Patient Education: Patient Medication Summary Completed 04/27/2018 Appointment: Mila Nicole WPtel: [facility] [place] (15 min) Moderate 04/05/2018 Visit Plan: [...] current regimen. 03/28/2018 Appointment: Mila Nicole WPtel: [facility] [place] (15 min) Moderate 03/28/2018 Patient Education: Patient Medication Summary Completed 03/28/2018 Patient Education: Hypertension Completed 03/28/2018 Care Plan: ECHO EXAM OF ABDOMEN Pending 03/28/2018 Visit Plan: Low back pain-xray lumb ar spine Dysuria- improved-will culture urine [id number]-sq changes today 02/24/2018 Appointment: Claudia Pruitt WPtel: [facility]5 [facility] [place] [address] (15 min) Moderate 02/24/2018 Patient Education: Patient [...] current medications. 01/27/2018 Appointment: Claudia Pruitt WPtel: [facility]5 [phone] (15 min) Moderate 01/27/2018 Patient Education: [...] worse 11/25/2017 Appointment: Claudia Pruitt WPtel: [phone] [phone] (15 min) Moderate 11/25/2017 Patient Education: Patient Medication Summary Completed 11/25/2017 Appointment: Mila Nicole WPtel: [phone] [facility] (15 min) Moderate 10/28/2017 Visit Plan: Diabetes [...] to appt. 10/26/2017 Appointment: Claudia Pruitt WPtel: [facility]0 [phone] [place] (15 min) Moderate 10/26/2017 Patient [...] plan. 10/11/2017 Appointment: [facility]ruitt [facility]el[phone] [phone] [place] (30 min) Complex 10/11/2017 Patient [...] Summary Completed 09/22/2017 Appointment: Mila Nicole WPtel: [facility] [place] [place] (15 min) Moderate 09/13/2017 Appointment: Mila Nicole WPtel: [facility] (15 min) Moderate 09/07/2017 Visit Plan: Diabetes [...] uncontrolled. 07/06/2017 Appointment: Mila Nicole WPtel: [phone] [facility] (15 min) Moderate 07/06/2017 Patient Education: Patient Medication Summary Completed 07/06/2017 Appointment: Mila Nicole WPtel: [phone] [facility] (15 min) Moderate 06/07/2017 Visit Plan: [...] controlled. 06/03/2017 Appointment: Claudia Pruitt WPtel: [phone] [phone] (30 min) Complex 06/03/2017 Patient Education: Patient [...] treatment plan 05/12/2017 Appointment: Pablo Gardenia WPtel: [phone] [facility] (30 min) Complex 05/12/2017 Patient Education: [...] 04/15/2017 Appointment: Mila Nicole WPtel: [phone] [facility] [place] (15 min) Moderate 04/15/2017 Patient Education: Patient [...] daily. 03/19/2017 Appointment: Mila Nicole WPtel: [phone] [facility] (15 min) Moderate 03/19/2017 Patient Education: Patient Medication Summary Completed 03/19/2017 Appointment: Mila Nicole WPtel: [phone] [facility] (15 min) Moderate 02/24/2017 Visit Plan: [...] HS 02/03/2017 Appointment: Mila Nicole WPtel: [phone] [facility] (15 min) Moderate 02/03/2017 Patient Education: [...] acute concerns. 01/07/2017 Appointment: Gardenia Shah WPtel: [facility]5 [facility] (30 min) Complex 01/07/2017 Patient Education: [...] to allow for greater blood glucose control. [id number], 02/2018 junior nordisk 12/17/2016 Appointment: Mila Nicole WPtel: [facility] (15 min) Moderate 12/17/2016 Patient Education: Patient Medication Summary Completed 12/17/2016 Patient Education: Obesity Completed 12/17/2016 Appointment: Mila Nicole WPtel: [facility]5 [facility] (15 min) Moderate 12/14/2016 Visit [...] current medications. 09/14/2016 Appointment: Mila Nicole WPtel: [facility]5 [facility] (15 min) Moderate 09/14/2016 Patient Education: [...] home. 06/18/2016 Appointment: Mila Nicole WPtel: [phone] [facility] (15 min) Moderate 06/18/2016 Patient [...] at home. 04/16/2016 Appointment: Mila Nicole WPtel: [facility]7 [facility] [place] (15 min) Moderate 04/16/2016 Patient Education: [...] with gabapentin 03/19/2016 Appointment: Mila Nicole WPtel: [phone] [facility] [place] [place] (15 min) Moderate 03/19/2016 Patient Education: [...] at home. 11/14/2015 Appointment: Mila Nicole WPtel: [facility] [place] [place] (15 min) Moderate 11/14/2015 Patient Education: [...] diflucan treatment - check [id number] 07/17/2015 Appointment: Mial Nicole WPtel: [facility] [place] [place] (15 min) Moderate 07/17/2015 Patient Education: [...] 03/25/2015 Appointment: Mila Nicole WPtel: [phone] [facility] [place] (15 min) Moderate 01/14/2015 Visit Plan: Diabetes [...] control. 12/04/2014 Appointment: Mila Nicole WPtel: [phone] [facility] (15 min) Moderate 12/04/2014 Patient Education: [...] 08/14/2014 Appointment: Mila Nicole WPtel: [phone] [place] [place] (S[place] New Patient 08/14/2014 Patient Education: [...] to allow for greater blood glucose control. [id number], 02/2018 junior nordisk CHECK LABS AND UA XRAY LUMBAR . Low back pain-xray lumbar spine Dysuria- improved-will culture urine [id number] changes today . Hypertension - wel l [...]
--- OUTSIDE RECORDS SUMMARY | 2019-03-16 19:36 | XMS REPORT | CCD ---
Author Author Melinda Nicole Organization Mila Nicole MD, [facility] Address [address] [place] [address] Phone Care Team Providers Care Billet Straightener Name Role Phone PP Unavailable CCM Unavailable Summary Purpose Interface Exchange Insurance Providers Payer name Policy type / Coverage type Covered libertarian ID Effective Begin Date Effective End Date WPS Medicare Part B Medicare Part B [id number] Unknown AARP Medicare Part B [id number] Unknown Family history Mother Diagnosis Age At [...] Unknown 3 08/14/[address]: 924404987 Never smoker 08/14/[address]: 731911864 Never drinks alcohol 08/14/2014 Allergies, Adverse Reactions, Alerts Substance Reaction Codes Entered Date Inactivated Date Status * OTHER REACTION - S EE ANSWER BOX Invokana, Victoza Unknown 03/19/2017 No Inactive Date Active Paxil has blurred vision RxNorm: 019402 08/14/2014 No Inactive Date Active Lipitor RxNorm: 05922 08/14/2014 No Inactive Date Active Past Medical [...] Fill Instructions Zetia 10 mg tablet RxNorm: 621185 1 Tablet(s) PO daily 03/28/2018 03/22/2019 Active tramadol 50 mg tablet RxNorm: 299659 1 Tablet(s) PO TID as needed 03/25/2018 No Stop Date Active fluticasone 50 mcg/a ctuation nasal spray,suspension RxNorm: 3816074 INSTILL ONE SPRAY IN EACH NOSTRILTWICE A DAY 03/16/2018 10/11/2018 Active Generic For:FLONASE SPR 0.05% 03/16/2018 8:50:59 AM Keflex 500 mg capsule RxNorm: 359176 1 Capsule(s) PO TID 02/11/2018 02/10/2018 Inactive Keflex 500 mg capsule RxNorm: 274955 1 Capsule(s) PO TID 02/11/2018 02/20/2018 Inactive metoprolol succinate ER 200 mg tablet,extended release 24 hr RxNorm: 633187 1 Tablet(s) PO daily 01/27/2018 No Stop Date Active Eliquis 2.5 mg tablet RxNorm: 1627212 1 Tablet(s) PO BID 01/27/2018 No Stop Date Active digoxin 125 mcg tablet RxNorm: 493466 1 Tablet(s) PO daily 01/27/2018 No Stop Date Active Basaglar KwikPen U-1 00 Insulin 100 unit/mL (3 mL) subcutaneous RxNorm: 6408873 20 Unit(s) SQ daily 11/25/2017 05/23/2018 Active UPDATE RX metformin 500 mg tablet RxNorm: 940539 1 Tablet(s) PO UD 1.5 in morning, noon a nd 1 at bedtime 10/28/2017 10/22/2018 Active Basaglar KwikPen U-1 00 Insulin 100 unit/mL (3 mL) subcutaneous RxNorm: 4802628 18 Unit(s) SQ daily 10/26/2017 11/24/2017 Inactive UPDATE RX levothyroxine 50 mcg tablet RxNorm: 522275 TAKE 1 TABLET BY MOUT H ONCE DAILY 10/15/2017 06/11/2018 Ac tive Generic For:SYNTHROID 50MCG TAB 018 9:59:00 AM escitalopram 10 mg t ablet RxNorm: 314579 1 Tablet(s) PO QPM 09/22/2017 09/16/2018 Active Generic For:LEXAPRO 5MG 01/07/2017 9:05 :43 AM Basaglar KwikPen U-1 00 Insulin 100 unit/mL (3 mL) subcutaneous RxNorm: 0246408 15 Unit(s) SQ daily 09/22/2017 10/25/2017 Inactive potassium chloride E R 20 mEq tablet,extended release RxNorm: 758604 1 Tablet(s) PO daily 06/22/2017 01/17/2018 Inactive Lantus Solostar U-10 0 Insulin 100 unit/mL (3 mL) subcutaneous pen RxNorm: 298473 10 Unit(s) SQ daily 06/08/2017 06/08/2017 Inactive Basaglar KwikPen U-1 00 Insulin 100 unit/mL (3 mL) subcutaneous RxNorm: 0315200 10 Unit(s) SQ daily 06/08/2017 06/07/2017 Inactive Basaglar KwikPen U-1 00 Insulin 100 unit/mL (3 mL) subcutaneous RxNorm: 4342828 10 Unit(s) SQ daily 06/08/2017 09/21/2017 Inactive Lexapro 5 mg tablet RxNorm: 226258 1 Tablet(s) PO daily 06/01/2017 11/27/2017 Inactive Lexapro 5 mg tablet RxNorm: 467040 1 Tablet(s) PO daily 05/12/2017 05/31/2017 Inactive bisoprolol 5 mg-hydr ochlorothiazide 6.25 mg tablet RxNorm: 091157 1 Tablet(s) PO BID 05/04/2017 06/02/2017 Inactive Keflex 500 mg capsule RxNorm: 616355 1 Capsule(s) PO QID 04/15/2017 04/21/2017 Inactive Lantus Solostar 100 unit/mL (3 mL) subcutaneous insulin pen RxNorm: 870085 10 Unit(s) SQ daily 02/03/2017 06/07/2017 Inactive levothyroxine 50 mcg tablet RxNorm: 033847 TAKE 1 TABLET BY MOUT H ONCE DAILY 02/01/2017 09/28/2017 In active Generic For:SYNTHROID 50MCG TAB 017 9:20:59 AM gabapentin 600 mg ta blet RxNorm: 574225 1 Capsule(s) PO TID 01/27/2017 01/21/2018 Inactive Lexapro 5 mg tablet RxNorm: 159591 TAKE 1 TABLET BY MOUTH AT BEDTIME 01/07/2017 09/21/2017 In active Generic For:LEXAPRO 5MG 01/07/2017 9:05 :43 AM Victoza 2-Dariusz 0.6 mg /0.1 mL (18 mg/3 mL) subcutaneous pen injector RxNorm: 625405 1.8 Milligram(s) SQ daily 12/17/2016 02/07/2017 Inactive Victoza 3-Dariusz 0.6 mg /0.1 mL (18 mg/3 mL) subcutaneous pen injector RxNorm: 327264 Milligram(s) SQ 12/17/2016 02/07/2017 Inactive Zetia 10 mg tablet RxNorm: 448078 1 Tablet(s) PO daily 11/17/2016 11/11/2017 Inactive fluticasone 50 mcg/a ctuation nasal spray,suspension RxNorm: 1825704 [place] NASAL ONE SPRAY IN EACH NOSTRIL TWICE DAILY 09/28/2016 04/25/2017 Inactive Victoza 2-Dariusz 0.6 mg /0.1 mL (18 mg/3 mL) subcutaneous pen injector RxNorm: 864345 1.2 Milligram(s) SQ daily 09/14/2016 12/16/2016 Inactive Lexapro 5 mg tablet RxNorm: 651131 1 Tablet(s) PO QHS 09/14/2016 12/12/2016 Inactive metformin 500 mg tablet RxNorm: 524565 1 Tablet(s) PO UD 1.5 in morning, noon a nd 1 at bedtime 09/08/2016 09/02/2017 Inactive glimepiride 4 mg tablet RxNorm: 443580 TAKE 1 TABLET BY MOUTH ONCE DAILY 07/31/2016 09/13/2016 In active Generic For:*AMARYL 4MG 07/31/2016 9:02 :38 AM Victoza 2-Dariusz 0.6 mg /0.1 mL (18 mg/3 mL) subcutaneous pen injector RxNorm: 338247 1.2 Milligram(s) SQ daily 05/18/2016 09/13/2016 Inactive Victoza 2-Dariusz 0.6 mg /0.1 mL (18 mg/3 mL) subcutaneous pen injector RxNorm: 117174 1.2 Milligram(s) SQ daily 04/16/2016 05/17/2016 Inactive levothyroxine 50 mcg tablet RxNorm: 253753 TAKE 1 TABLET BY MOUT H ONCE DAILY 04/08/2016 12/03/2016 In active Generic For:SYNTHROID 50MCG TAB 017 9:05:40 AM levothyroxine 50 mcg tablet RxNorm: 707635 1 Tablet(s) PO daily TAKE 1 TABLET BY MOUTH ONCE DAILY 04/08/2016 12/03/2016 Inactive Generic For:SYNTHROID 50MCG TAB N O T I C E PRESCRIPTION PREVIOUSLY AUTHORIZED BY DOCTOR:HENRY BAIG bisoprolol 5 mg-hydr ochlorothiazide 6.25 mg tablet RxNorm: 184527 1 Tablet(s) PO BID 03/23/2016 03/17/2017 Inactive Victoza 2-Dariusz 0.6 mg /0.1 mL (18 mg/3 mL) subcutaneous pen injector RxNorm: 382294 0.6 Milligram(s) SQ daily 03/19/2016 04/15/2016 Inactive Lexapro 5 mg tablet RxNorm: 151184 1 Tablet(s) PO QHS 03/19/2016 06/16/2016 Inactive gabapentin 600 mg ta blet RxNorm: 117325 1 Capsule(s) PO TID 03/19/2016 01/26/2017 Inactive glimepiride 4 mg tablet RxNorm: 888126 1 Tablet(s) PO daily 12/09/2015 06/05/2016 Inactive Victoza 3-Dariusz 0.6 mg /0.1 mL (18 mg/3 mL) subcutaneous pen injector RxNorm: 624190 0.6 Milligram(s) SQ daily x2 weeks, then 1.2 mg SQ daily 12/02/2015 03/18/2016 Inactive metformin 500 mg tablet RxNorm: 926644 1 Tablet(s) PO UD 1.5 in morning, noon a nd 1 at bedtime 08/14/2015 08/07/2016 Inactive gabapentin 600 mg ta blet RxNorm: 154507 1 Capsule(s) PO TID S HE IS ONLY TAKING 1 QD 08/14/2015 03/18/2016 In active fluticasone 50 mcg/a ctuation nasal spray,suspension RxNorm: 350812 [place] NASAL ONE SPRAY IN EACH NOSTRIL TWICE DAILY 07/26/2015 07/25/2015 Inactive fluticasone 50 mcg/a ctuation nasal spray,suspension RxNorm: 6109112 [place] NASAL ONE SPRAY IN EACH NOSTRIL TWICE DAILY 07/26/2015 02/20/2016 Inactive bisoprolol 5 mg-hydr ochlorothiazide 6.25 mg tablet RxNorm: 321464 1 Tablet(s) PO daily 1 Tablet(s) PO BID 07/17/2015 01/12/2016 Inactive metformin 500 mg tablet RxNorm: 480989 1 Tablet(s) PO TID 1 Tablet(s) PO TID 07/17/2015 08/13/2015 In active Diflucan 100 mg tablet RxNorm: 583372 1 Tablet(s) PO daily 07/17/2015 07/21/2015 Inactive Zetia 10 mg tablet RxNorm: 592037 1 Tablet(s) PO daily 06/10/2015 06/03/2016 Inactive bisoprolol 5 mg-hydr ochlorothiazide 6.25 mg tablet RxNorm: 830641 1 Tablet(s) PO BID 04/18/2015 07/16/2015 Inactive metformin 500 mg tablet RxNorm: 544900 1 Tablet(s) PO TID 03/01/2015 06/28/2015 Inactive glimepiride 4 mg tablet RxNorm: 983844 1 Tablet(s) PO daily 01/31/2015 01/30/2015 Inactive levothyroxine 50 mcg tablet RxNorm: 970688 TAKE 1 TABLET BY MOUT H ONCE DAILY 01/31/2015 09/27/2015 In active Generic For:SYNTHROID 50MCG TAB N O T I C E PRESCRIPTION PREVIOUSLY AUTHORIZED BY DOCTOR:HENRY BAIG glimepiride 4 mg tablet RxNorm: 767024 1 Tablet(s) PO daily 01/31/2015 07/29/2015 Inactive Invokana 100 mg tablet RxNorm: 7533316 1 Tablet(s) PO daily 12/12/2014 07/16/2015 Inactive bisoprolol 5 mg-hydr ochlorothiazide 6.25 mg tablet RxNorm: 195933 1 Tablet(s) PO BID 08/27/2014 02/22/2015 Inactive metformin 500 mg tablet RxNorm: 283407 1 Tablet(s) PO TID 08/10/2014 12/07/2014 Inactive metformin 500 mg tablet RxNorm: 119577 1 Tablet(s) PO TID 08/10/2014 08/09/2014 Inactive Fish Oil 1,000 mg ca psule RxNorm: 1 Capsule(s) PO daily No Start Date Active Protonix 40 mg table t,delayed release RxNorm: 233639 1 Tablet(s) PO QAM No Start Date Active furosemide 40 mg tablet RxNorm: 931152 1 Tablet(s) PO daily No Start Date Active pen needle, diabetic 31 gauge x 1/6" RxNorm: Miscellaneous N o Start Date Active nitroglycerin 0.4 mg sublingual tablet RxNorm: 385018 1 Tablet(s) SL as nee ded chest pain No Start Date Active amlodipine 5 mg tablet RxNorm: 200735 1 Tablet(s) PO daily No Start Date Active Entresto 24 mg-26 mg tablet RxNorm: 8052961 1 Tablet(s) PO BID No Start Date Active aspirin 81 mg chewab le tablet RxNorm: 748378 1 Tablet(s) PO daily No Start Date 06/02/2017 Inactive Eliquis 5 mg tablet RxNorm: 1512637 1 Tablet(s) PO BID No Start Date 01/26/2018 Inactive bisoprolol-hydrochlo rothiazide oral RxNorm: [address] art Date 08/26/2014 Inactive levothyroxine 50 mcg tablet RxNorm: 618434 1 Tablet(s) PO daily No Start Date 01/30/2015 Inactive potassium chloride E R 20 mEq tablet,extended release RxNorm: 448061 1 Tablet(s) PO daily No Start Date 06/21/2017 Inactive digoxin 250 mcg tablet RxNorm: 857743 1 Tablet(s) PO daily No Start Date 01/26/2018 Inactive Invokana 100 mg tablet RxNorm: 5352524 1 Tablet(s) PO daily No Start Date 12/11/2014 Inactive tramadol 50 mg tablet RxNorm: 868640 1 Tablet(s) PO TID as needed No Start Date 03/22/2018 Inactive Victoza 3-Dariusz 0.6 mg /0.1 mL (18 mg/3 mL) subcutaneous pen injector RxNorm: 360628 0.6 Milligram(s) SQ daily x2 weeks, then 1.2 mg SQ daily No Start Date 12/01/2015 Inactive Effient 10 mg tablet RxNorm: 015931 1 Tablet(s) PO QAM No Start Date 01/26/2018 Inactive Zetia 10 mg tablet RxNorm: 526550 1 Tablet(s) PO BID No Start Date 03/18/2016 Inactive metoprolol succinate ER 100 mg tablet,extended release 24 hr RxNorm: 066736 1 Tablet(s) PO daily No Start Date 01/26/2018 Inactive gabapentin 300 mg ca psule RxNorm: 642625 1 Capsule(s) PO BID No Start Date 08/13/2015 Inactive Lasix 40 mg tablet RxNorm: 790783 1 Tablet(s) PO BID No Start Date 04/14/2017 Inactive Coreg 3.125 mg tablet RxNorm: 531873 1 Tablet(s) PO BID with meals No Start Date 06/02/2017 Inactive Medication Administered No Medication Administered data Immunizations Vaccine Codes Date Status Influenza CVX: 141 11/25 completed Influenza CVX: 141 12/17 completed Influenza CVX: 141 11/13 completed Influenza CVX: 141 12/04 completed Assessments Condition Codes Effectiv e Dates Right upper quadrant pain ICD-10: R1 0.11 ICD-9: 789.01 04/27/2018 Essential (primary) hypertension ICD -10: I10 ICD-9: [...] 04/15/2017 stress test and then shipped to [facility] Follow Up 03/19/2017 stress test and then shipped to [place] diabetes mellitus 02/03/2017 headache 01/07/2017 diabetes mellitus 12/17/2016 diabetes mellitus 09/14/2016 diabetes mellitus 06/18/2016 medication follow up 04/16/2016 back pain 03/19/2016 back pain 11/14/2015 back pain 08/14/2015 diabetes mellitus 07/17/2015 Hospital Follow Up 03/25/2015 diabetes mellitus 12/04/2014 diabetes mellitus 08/14/2014 Results Observation Observation Code Item Item Code Result Date Culture Urine [id number] URI NE CULTURE SEE NOTES 02/28/2018 Urine [...] 28.8 pg 02/24/2018 Cbc With Differential Ord2 [place]% 5.7 % 02/24/2018 Cbc With Differential Ord2 [...] 1.57 K/ul 02/24/2018 Cbc With Differential Ord2 [place] ABS# 0.4 K/ul 02/24/2018 Cbc With Differential Ord2 Eos ABS# 0.1 K/ul 02/24/2018 Cbc With Differential Ord2 Baso ABS# 0.0 K/ul 02/24/2018 Comp Metabolic Bys526 NA 138 mEq/L 02/24/2018 Comp Metabolic Dog859 K 4.4 mEq/L 02/24/2018 Comp Metabolic Uja348 CL 100 mEq/L 02/24/2018 Comp Metabolic Kuo300 CO2 27.0 mEq/L 02/24/2018 Comp Metabolic Nty266 AN ION GAP 15 02/24/2018 Comp Metabolic Chd983 GL UCOSE 98 mg/dL 02/24/2018 Comp Metabolic Fru193 Cr eat 1.0 mg/dL 02/24/2018 Comp Metabolic Ocd629 eG FR 55 ml/min/1.73m2 02/24 Comp Metabolic Nqh423 BUN 25 mg/dL 02/24/2018 Comp Metabolic Mcr004 B/ C Ratio 24.3 Ratio 02/24/2018 Comp Metabolic Vwr807 CA LCIUM 9.4 mg/dL 02/24/2018 Comp Metabolic Izp508 AL K PHOS 46 U/L 02/24/2018 Comp Metabolic Rpy902 T(SGOT) 13 U/L 02/24/2018 Comp Metabolic Efp262 AL T(SGPT) 12 U/L 02/24/2018 Comp Metabolic Hyy429 BI LI T 0.4 mg/dL 02/24/2018 Comp Metabolic Dak085 AL BUMIN 4.5 g/dL 02/24/2018 Comp Metabolic Wne277 TP RO 6.6 g/dL 02/24/2018 Comp Metabolic Fua914 GL OB 2.1 g/dL 02/24/2018 Comp Metabolic Ymx890 A/ G Ratio 2.1 Ratio 02/24/2018 Comp Metabolic Ily039 Os mo 280 mOsmo 02/24/2018 Culture Urine [id number] URI NE CULTURE SEE NOTES 02/11/2018 Culture Urine [id number] Con tinued Results 02/11/2018 Urine Culture Ucult Comp lete >100,000 col/ml aerobic grow th sent to ref lab 02/08/2018 %Hba1C Bah555 % HbA1c 37414-4 6.8 % 01/12/2018 %Hba1C Gcl799 Gluc Ave 148 mg/dL 01/12/2018 Metabolic Ord15 [...] 89.9 fl 01/11/2018 Cbc With Differential Ord2 [place]% 7.8 % 01/11/2018 Cbc With Differential Ord2 [...] 1.70 K/ul 01/11/2018 Cbc With Differential Ord2 [place] ABS# 0.4 K/ul 01/11/2018 Cbc With Differential Ord2 Eos ABS# 0.1 K/ul 01/11/2018 Cbc With Differential Ord2 Baso ABS# 0.0 K/ul 01/11/2018 Magnesium Ord90 Mag 1.7 mg/dL 01/11/2018 Test(s) Not Perfromed [id number] Test(s) Not Performed Test(s) Not Performed. See Below: 09/20/2017 Test(s) Not Perfromed [id number] TEST NAME BNP 09/20/2017 Test(s) Not Perfromed [id number] Rejection Reason Patient Refused due to lack of coving diganosis 09/20/2017 Test(s) Not Perfromed [id number] COMMENT Dorita Notified 11/2017 Test(s) Not Perfromed [id number] Lyric Writer Miguel Mclaughlin 09/20/2017 B Type Natriuretic Peptide Jdv8406 B-STENCIL MACHINE OPERATOR 889.00 pg/ml 8 Cbc With Differential Ord2 WBC 5.72 K/ul 09/20/2017 Cbc With Differential Ord2 RBC 3.88 M/ul 09/20/2017 Cbc With Differential Ord2 HGB 11.2 g/dl 09/20/2017 Cbc With Differential Ord2 Neut% 62.4 % 09/20/2017 Cbc With Differential Ord2 HCT 35.0 % 09/20/2017 Cbc With Differential Ord2 Lymph% 29.4 % 09/20/2017 Cbc With Differential Ord2 MCV 90.2 fl 09/20/2017 Cbc With Differential Ord2 [place]% 5.6 % 09/20/2017 Cbc With Differential Ord2 [...] 1.68 K/ul 09/20/2017 Cbc With Differential Ord2 [place] ABS# 0.3 K/ul 09/20/2017 Cbc With Differential Ord2 Eos ABS# 0.1 K/ul 09/20/2017 Cbc With Differential Ord2 Baso ABS# 0.0 K/ul 09/20/2017 %Hba1C Hpe686 % HbA1c 72677-2 7.9 % 09/20/2017 %Hba1C Swa601 Gluc Ave 180 mg/dL 09/20/2017 Magnesium Ord90 [...] 28.3 pg 07/07/2017 Cbc With Differential Ord2 [place]% 7.9 % 07/07/2017 Cbc With Differential Ord2 [...] 1.34 K/ul 07/07/2017 Cbc With Differential Ord2 [place] ABS# 0.4 K/ul 07/07/2017 Cbc With Differential Ord2 Eos ABS# 0.1 K/ul 07/07/2017 Cbc With Differential Ord2 Baso ABS# 0.0 K/ul 07/07/2017 Comp Metabolic Vgx820 NA 142 mEq/L 07/07/2017 Comp Metabolic Qwm904 K 4.3 mEq/L 07/07/2017 Comp Metabolic Miq322 CL 105 mEq/L 07/07/2017 Comp Metabolic Yre715 CO2 28.0 mEq/L 07/07/2017 Comp Metabolic Apy888 AN ION GAP 13 07/07/2017 Comp Metabolic Eyt812 GL UCOSE 197 mg/dL 07/07/2017 Comp Metabolic Rjs402 Cr eat 1.1 mg/dL 07/07/2017 Comp Metabolic Cnx902 eG FR 51 ml/min/1.73m2 07/07 Comp Metabolic Yhf983 BUN 21 mg/dL 07/07/2017 Comp Metabolic Cqy357 B/ C Ratio 18.9 Ratio 07/07/2017 Comp Metabolic Azf498 CA LCIUM 8.9 mg/dL 07/07/2017 Comp Metabolic Eqh054 AL K PHOS 51 U/L 07/07/2017 Comp Metabolic Zme881 T(SGOT) 11 U/L 07/07/2017 Comp Metabolic Plm592 AL T(SGPT) 11 U/L 07/07/2017 Comp Metabolic Znx365 BI LI T 0.3 mg/dL 07/07/2017 Comp Metabolic Fxp184 AL BUMIN 4.2 g/dL 07/07/2017 Comp Metabolic Rtg244 TP RO 6.0 g/dL 07/07/2017 Comp Metabolic Ony772 GL OB 1.8 g/dL 07/07/2017 Comp Metabolic Taf995 A/ G Ratio 2.3 Ratio 07/07/2017 Comp Metabolic Ddp646 Os mo 292 mOsmo 07/07/2017 Digoxin Ord9 DIGOXIN 1.3 NG/ML 07/07/2017 Tsh Ord6 TSH (3rd IS) 2.19 uIU/mL 07/07/2017 B Type Natriuretic Peptide Wfp7436 B-STENCIL MACHINE OPERATOR 801.00 pg/ml 8 Culture Urine [id number] URI NE CULTURE SEE NOTES 04/19/2017 Culture Urine [id number] Con tinued Results 04/19/2017 Urine Culture Ucult Comp lete >100,000 col/ml aerobic grow th sent to ref lab 04/16/2017 Comp Metabolic Uib632 NA 140 mEq/L 01/26/2017 Comp Metabolic Iuk685 K 4.6 mEq/L 01/26/2017 Comp Metabolic Xmq009 CL 102 mEq/L 01/26/2017 Comp Metabolic Iae206 CO2 28.0 mEq/L 01/26/2017 Comp Metabolic Ntn559 AN ION GAP 15 01/26/2017 Comp Metabolic Dar918 GL UCOSE 173 mg/dL 01/26/2017 Comp Metabolic Efu438 Cr eat 1.0 mg/dL 01/26/2017 Comp Metabolic Stl640 eG FR 56 ml/min/1.73m2 01/26 Comp Metabolic Mew484 BUN 23 mg/dL 01/26/2017 Comp Metabolic Yhz154 B/ C Ratio 22.5 Ratio 01/26/2017 Comp Metabolic Ayz162 CA LCIUM 9.4 mg/dL 01/26/2017 Comp Metabolic Jsw122 AL K PHOS 52 U/L 01/26/2017 Comp Metabolic Gbz350 T(SGOT) 12 U/L 01/26/2017 Comp Metabolic Kwf266 AL T(SGPT) 12 U/L 01/26/2017 Comp Metabolic Xmw481 BI LI T 0.5 mg/dL 01/26/2017 Comp Metabolic Uxc061 AL BUMIN 4.4 g/dL 01/26/2017 Comp Metabolic Rix403 TP RO 6.5 g/dL 01/26/2017 Comp Metabolic Egi099 GL OB 2.1 g/dL 01/26/2017 Comp Metabolic Zsm755 A/ G Ratio 2.1 Ratio 01/26/2017 Comp Metabolic Zki508 Os mo 287 mOsmo 01/26/2017 Cbc With [...] 29.2 pg 01/26/2017 Cbc With Differential Ord2 [place]% 4.9 % 01/26/2017 Cbc With Differential Ord2 [...] 1.75 K/ul 01/26/2017 Cbc With Differential Ord2 [place] ABS# 0.4 K/ul 01/26/2017 Cbc With Differential Ord2 Eos ABS# 0.1 K/ul 01/26/2017 Cbc With Differential Ord2 Baso ABS# 0.0 K/ul 01/26/2017 %Hba1C Ozq050 % HbA1c 78066-6 7.8 % 01/26/2017 %Hba1C Fhl943 Gluc Ave 177 mg/dL 01/26/2017 Lipid Ord30 CHOL 239 mg/dL 01/26/2017 Lipid Ord30 HDL 40.0 mg/dl 01/26/2017 Lipid Ord30 TRIG 325 mg/dL 01/26/2017 Lipid Ord30 LDL 134 mg/dL 01/26/2017 Lipid Ord30 C/HDL 6.0 Ratio 01/26/2017 Free T4 Rzo526 FREE T4 0.95 ng/dL 01/26/2017 Tsh Ord6 [...] Metabolic Ord15 CALCIUM 9.0 mg/dL 09/08/2016 %Hba1C Epa688 % HbA1c 98009-1 7.5 % 09/08/2016 %Hba1C Fyg413 Gluc Ave 169 mg/dL 09/08/2016 Tsh Ord6 hTSH II 2.64 uIU/mL 03/13/2016 %Hba1C Jgz058 % HbA1c 53614-5 8.2 % 03/13/2016 %Hba1C Esm848 Gluc Ave 189 mg/dL 03/13/2016 Lipid Ord30 CHOL 233 mg/dL 03/13/2016 Lipid Ord30 HDL 46.0 mg/dl 03/13/2016 Lipid Ord30 TRIG 276 mg/dL 03/13/2016 Lipid Ord30 LDL 132 mg/dL 03/13/2016 Lipid Ord30 C/HDL 5.1 Ratio 03/13/2016 Free T4 Svq777 FREE T4 0.94 ng/dL 03/13/2016 Cbc With [...] 29.5 % 03/13/2016 Cbc With Differential Ord2 [place]% 6.1 % 03/13/2016 Cbc With Differential Ord2 [...] 1.63 K/ul 03/13/2016 Cbc With Differential Ord2 [place] ABS# 0.3 K/ul 03/13/2016 Cbc With Differential Ord2 Eos ABS# 0.1 K/ul 03/13/2016 Cbc With Differential Ord2 Baso ABS# 0.0 K/ul 03/13/2016 Comp Metabolic Pay771 NA 139 mEq/L 03/13/2016 Comp Metabolic Zfs048 K 4.3 mEq/L 03/13/2016 Comp Metabolic Ouh781 CL 103 mEq/L 03/13/2016 Comp Metabolic Qwl278 CO2 28.0 mEq/L 03/13/2016 Comp Metabolic Kft800 AN ION GAP 12 03/13/2016 Comp Metabolic Ors515 GL UCOSE 200 mg/dL 03/13/2016 Comp Metabolic Exw054 Cr eat 0.9 mg/dL 03/13/2016 Comp Metabolic Fni446 eG FR 69 ml/min/1.73m2 03/13 Comp Metabolic Grw387 BUN 19 mg/dL 03/13/2016 Comp Metabolic Jln209 B/ C Ratio 22.4 Ratio 03/13/2016 Comp Metabolic Onw507 CA LCIUM 9.0 mg/dL 03/13/2016 Comp Metabolic Hyr998 AL K PHOS 57 U/L 03/13/2016 Comp Metabolic Mhh779 T(SGOT) 13 U/L 03/13/2016 Comp Metabolic Prd153 AL T(SGPT) 16 U/L 03/13/2016 Comp Metabolic Iti773 BI LI T 0.4 mg/dL 03/13/2016 Comp Metabolic Tvp501 AL BUMIN 4.2 g/dL 03/13/2016 Comp Metabolic Nju350 TP RO 6.3 g/dL 03/13/2016 Comp Metabolic Zhh334 GL OB 2.1 g/dL 03/13/2016 Comp Metabolic Udz261 A/ G Ratio 2.0 Ratio 03/13/2016 Comp Metabolic Bqs002 Os mo 285 mOsmo 03/13/2016 %Hba1C Fya810 % HbA1c 28090-6 8.3 % 11/14/2015 %Hba1C Llv221 Gluc Ave 192 mg/dL 11/14/2015 Lipid Ord30 CHOL 210 mg/dL 07/19/2015 Lipid Ord30 HDL 43.0 mg/dl 07/19/2015 Lipid Ord30 TRIG 311 mg/dL 07/19/2015 Lipid Ord30 LDL 105 mg/dL 07/19/2015 Lipid Ord30 C/HDL 4.9 Ratio 07/19/2015 %Hba1C Owe714 % HbA1c 79148-5 7.6 % 07/19/2015 %Hba1C Gzg464 Gluc Ave 171 mg/dL 07/19/2015 Cbc With [...] 28.8 pg 07/19/2015 Cbc With Differential Ord2 [place]% 6.1 % 07/19/2015 Cbc With Differential Ord2 [...] 1.63 K/ul 07/19/2015 Cbc With Differential Ord2 [place] ABS# 0.3 K/ul 07/19/2015 Cbc With Differential Ord2 Eos ABS# 0.1 K/ul 07/19/2015 Cbc With Differential Ord2 Baso ABS# 0.0 K/ul 07/19/2015 Cbc With Differential Ord2 New Analyzer Notice Please note new ref ranges s tarting 03-27-2015 due to implemntation of new five part differential hematolgy analyzer. 07/19/2015 Comp Metabolic Xeu405 NA 138 mEq/L 07/19/2015 Comp Metabolic Qgh676 K 4.3 mEq/L 07/19/2015 Comp Metabolic Xek544 CL 100 mEq/L 07/19/2015 Comp Metabolic Nmd592 CO2 33.0 mEq/L 07/19/2015 Comp Metabolic Hxu773 AN ION GAP 9 07/19/2015 Comp Metabolic Agm489 GL UCOSE 149 mg/dL 07/19/2015 Comp Metabolic Ehb049 Cr eat 0.9 mg/dL 07/19/2015 Comp Metabolic Wtv076 eG FR 62 ml/min/1.73m2 07/18 Comp Metabolic Xiy593 BUN 19 mg/dL 07/19/2015 Comp Metabolic Flg035 B/ C Ratio 20.2 Ratio 07/19/2015 Comp Metabolic Gxi225 CA LCIUM 9.5 mg/dL 07/19/2015 Comp Metabolic Hxl803 AL K PHOS 52 U/L 07/19/2015 Comp Metabolic Gei334 T(SGOT) 15 U/L 07/19/2015 Comp Metabolic Bep766 AL T(SGPT) 14 U/L 07/19/2015 Comp Metabolic Jck319 BI LI T 0.5 mg/dL 07/19/2015 Comp Metabolic Qev434 AL BUMIN 4.4 g/dL 07/19/2015 Comp Metabolic Uxe540 TP RO 6.4 g/dL 07/19/2015 Comp Metabolic Bwx284 GL OB 2.0 g/dL 07/19/2015 Comp Metabolic Bkk441 A/ G Ratio 2.2 Ratio 07/19/2015 Comp Metabolic Yhp475 Os mo 281 mOsmo 07/19/2015 Free T4 Ftq777 FREE T4 0.92 ng/dL 07/19/2015 Tsh Ord6 hTSH II 1.95 uIU/mL 07/19/2015 Microalbumin Rrp537 Micr oAlb 0.4 mg/dL 07/19/2015 Comp Metabolic Yxu186 NA 137 mEq/L 12/04/2014 Comp Metabolic Pus707 K 4.0 mEq/L 12/04/2014 Comp Metabolic Pup424 CL 100 mEq/L 12/04/2014 Comp Metabolic Xux016 CO2 29.0 mEq/L 12/04/2014 Comp Metabolic Ikq706 AN ION GAP 12 12/04/2014 Comp Metabolic Swa813 GL UCOSE 171 mg/dL 12/04/2014 Comp Metabolic Cli416 Cr eat 1.0 mg/dL 12/04/2014 Comp Metabolic Kgc200 eG FR 60 ml/min/1.73m2 12/04 Comp Metabolic Fkn618 BUN 25 mg/dL 12/04/2014 Comp Metabolic Obb577 B/ C Ratio 25.8 Ratio 12/04/2014 Comp Metabolic Jdv730 CA LCIUM 9.4 mg/dL 12/04/2014 Comp Metabolic Bbu955 AL K PHOS 60 U/L 12/04/2014 Comp Metabolic Mpa727 T(SGOT) 13 U/L 12/04/2014 Comp Metabolic Qkw110 AL T(SGPT) 17 U/L 12/04/2014 Comp Metabolic Hjy359 BI LI T 0.4 mg/dL 12/04/2014 Comp Metabolic Hku299 AL BUMIN 4.4 g/dL 12/04/2014 Comp Metabolic Bpi334 TP RO 6.9 g/dL 12/04/2014 Comp Metabolic Hfb616 GL OB 2.5 g/dL 12/04/2014 Comp Metabolic Rvk909 A/ G Ratio 1.8 Ratio 12/04/2014 Comp Metabolic Kqp672 Os mo 282 mOsmo 12/04/2014 Tsh Ord6 hTSH II 1.78 uIU/mL 12/04/2014 %Hba1C Hqt075 % HbA1c 09230-8 8.3 % 12/04/2014 %Hba1C Hdm998 Gluc Ave 192 mg/dL 12/04/2014 Free T4 Vmi935 FREE T4 0.85 ng/dL 12/04/2014 Lipid Ord30 [...] Date URINALYSIS NONAUTO W /O SCOPE CPT-4: 06352 02/24/2018 URINALYSIS NONAUTO W /O SCOPE CPT-4: 90826 02/07/2018 ADMIN INFLUENZA VIRU S VAC CPT-4: G0008 11/25/2017 FLU VAC NO PRSV 4 VA L 3 YRS+ CPT-4: 47305 11/25/2017 GLUC MONITOR CONT PH YS I&R CPT-4: 60858 10/26/2017 GLUCOSE MONITORING CONT CPT-4: 81277 10/11/2017 URINALYSIS NONAUTO W /O SCOPE CPT-4: 53933 04/15/2017 FLU VAC NO PRSV 4 VA L 3 YRS+ CPT-4: 52782 12/17/2016 ADMIN INFLUENZA VIRU S VAC CPT-4: G0008 12/17/2016 FLU VACC PRSV FREE I NC ANTIG Formatting Model/CDA Sections, Assigned to/Nery Daniels CPT-4: 06975Omgrkhy 11/14/2015 ADMIN INFLUENZA VIRU S VAC CPT-4: G0008 11/14/2015 ADMIN INFLUENZA VIRU S VAC Formatting Model/CDA Sections, Assigned to/Nery Daniels CPT-4: [id number] 12/04/2014 FLU VACC 4 ANABELLE 3 YRS [facility] SNOMED CT: [id number] CPT-4: 24830 12/04/2014 Vital Signs Date Vital 04/27/2018 Blood Pressure 1: 118/44 Code: 8480-6 BMI: 28.3 Code: 23036-7 Heart Rate 1: 77 bpm Height: 5' SpO2: 99% Weight: 145 lbs 03/28/2018 Blood Pressure 1: 140/74 Code: 8480-6 BMI: 28.1 Code: 83403-8 Heart Rate 1: 87 bpm Height: 5' SpO2: 99% Weight: 144 lbs 02/24/2018 Blood Pressure 1: 130/62 Code: 8480-6 BMI: 28.9 Code: 86069-9 Heart Rate 1: 57 bpm Height: 5' SpO2: 99% Weight: 148 lbs 01/27/2018 Blood Pressure 1: 142/70 Code: 8480-6 BMI: 29.5 Code: 41268-7 Heart Rate 1: 61 bpm Height: 5' SpO2: 99% Weight: 151 lbs 11/25/2017 Blood Pressure 1: 148/72 Code: 8480-6 BMI: 30.9 Code: 19072-1 Heart Rate 1: 62 bpm Height: 5' SpO2: 98% Weight: 158 lbs 10/26/2017 Blood Pressure 1: 156/74 Code: 8480-6 BMI: 31.2 Code: 38515-0 Heart Rate 1: 71 bpm Height: 5' SpO2: 98% Weight: 160 lbs 10/11/2017 Blood Pressure 1: 128/70 Code: 8480-6 BMI: 30.9 Code: 31065-1 Heart Rate 1: 70 bpm Height: 5' SpO2: 95% Weight: 158 lbs 09/22/2017 Blood Pressure 1: 110/52 Code: 8480-6 BMI: 30.9 Code: 28873-5 Heart Rate 1: 72 bpm Height: 5' SpO2: 99% Weight: 158 lbs 07/06/2017 Blood Pressure 1: 120/85 Code: 8480-6 BMI: 31.4 Code: 12701-7 Heart Rate 1: 74 bpm Height: 5' SpO2: 92% Weight: 161 lbs 06/03/2017 Blood Pressure 1: 120/62 Code: 8480-6 BMI: 31.1 Code: 04155-4 Heart Rate 1: 73 bpm Height: 5' SpO2: 99% Weight: 159 lbs 05/12/2017 Blood Pressure 1: 132/68 Code: 8480-6 BMI: 32.4 Code: 58455-3 Heart Rate 1: 95 bpm Height: 5' SpO2: 97% Weight: 166 lbs 04/15/2017 Blood Pressure 1: 128/84 Code: 8480-6 BMI: 32.4 Code: 85576-7 Heart Rate 1: 62 bpm Height: 5' SpO2: 97% Weight: 166 lbs 03/19/2017 Blood Pressure 1: 112/60 Code: 8480-6 BMI: 32.0 Code: 66904-7 Height: 5' Weight: 164 lbs 02/03/2017 Blood Pressure 1: 128/76 Code: 8480-6 BMI: 33.4 Code: 27339-2 Heart Rate 1: 91 bpm Height: 5' SpO2: 99% Weight: 171 lbs 01/07/2017 Blood Pressure 1: 126/74 Code: 8480-6 BMI: 34.2 Code: 59438-5 Heart Rate 1: 83 bpm Height: 5' SpO2: 97% Weight: 175 lbs 12/17/2016 Blood Pressure 1: 122/72 Code: 8480-6 BMI: 34.0 Code: 77278-1 Heart Rate 1: 78 bpm Height: 5' SpO2: 97% Weight: 174 lbs 09/14/2016 Blood Pressure 1: 128/86 Code: 8480-6 BMI: 33.8 Code: 32494-8 Heart Rate 1: 88 bpm Height: 5' SpO2: 96% Weight: 173 lbs 06/18/2016 Blood Pressure 1: 122/74 Code: 8480-6 BMI: 34.8 Code: 44246-7 Heart Rate 1: 78 bpm Height: 5' SpO2: 98% Weight: 178 lbs 04/16/2016 Blood Pressure 1: 134/68 Code: 8480-6 BMI: 35.0 Code: 62431-2 Heart Rate 1: 67 bpm Height: 5' SpO2: 97% Weight: 179 lbs 03/19/2016 Blood Pressure 1: 132/74 Code: 8480-6 BMI: 34.6 Code: 07108-7 Heart Rate 1: 74 bpm Height: 5' SpO2: 97% Weight: 177 lbs 11/14/2015 Blood Pressure 1: 132/70 Code: 8480-6 BMI: 35.2 Code: 85728-5 Heart Rate 1: 68 bpm Height: 5' Weight: 180 lbs 08/14/2015 Blood Pressure 1: 122/74 Code: 8480-6 BMI: 33.8 Code: 47500-3 Heart Rate 1: 73 bpm Height: 5' SpO2: 93% Weight: 173 lbs 07/17/2015 Blood Pressure 1: 138/78 Code: 8480-6 BMI: 34.0 Code: 37242-1 Heart Rate 1: 85 bpm Height: 5' SpO2: 97% Weight: 174 lbs 03/25/2015 Blood Pressure 1: 130/78 Code: 8480-6 BMI: 33.2 Code: 31956-5 Heart Rate 1: 77 bpm Height: 5' SpO2: 97% Weight: 170 lbs 12/04/2014 Blood Pressure 1: 120/74 Code: 8480-6 BMI: 35.4 Code: 76656-3 Heart Rate 1: 67 bpm Height: 5' SpO2: 94% Weight: 181 lbs 5 oz 08/14/2014 Blood Pressure 1: 132/68 Code: 8480-6 BMI: 32.1 Code: 97954-7 Heart Rate 1: 62 bpm Height: 5'3" [...] nausea 01/27/2018 when she came home from [facility] hypertension Blood Pressure Values not checking [...] Encounters Encounter Performer Loca tion Codes Date 07108 EST. PATIENT, LEVEL III Diagnosis: Right upper quadrant pain[ICD10: R10.11] Gardenia Nicole MD, [facility] CPT-4: 76943 04/27/2018 ([id number]) 01172 EST. P ATIENT, LEVEL IV Diagnosis: Essential (primary) hypertension[ICD10: I10] Diagnosis: Right upper quadrant pain[ICD10: R10.11] Mila Nicole MD, [facility] CPT-4: 81472 03/28/2018 ([id number]) 93106 EST. P ATIENT, LEVEL IV Diagnosis: Low back pain[ICD10: M54.5] Diagnosis: Dysuria[ICD10: R30.0] Diagnosis: Type 2 diabetes mellitus with hyperglycemia[ICD10: E11.65] Claudia Nicole MD, [facility] CPT-4: 51632 02/24/2018 ([id number]) 41648 EST. P ATIENT, LEVEL IV Diagnosis: Type 2 diabetes mellitus with hyperglycemia[ICD10: E11.65] Diagnosis: Essential (primary) hypertension[ICD10: I10] Diagnosis: Major depressive disorder, recurrent, mild[ICD10: F33.0] Diagnosis: Generalized anxiety disorder[ICD10: F41.1] Claudia Nicole MD, [facility] CPT-4: 75003 01/27/2018 ([id number]) 00814 EST. P ATIENT, LEVEL IV Diagnosis: Type 2 diabetes mellitus with hyperglycemia[ICD10: E11.65] Diagnosis: Essential (primary) hypertension[ICD10: I10] Diagnosis: Encounter for immunization[ICD10: Z23] Diagnosis: Carpal tunnel syndrome, left upper limb[ICD10: G56.02] Claudia Nicole MD, [facility] CPT-4: 92612 11/25/2017 ([id number]) 12220 EST. P ATIENT, LEVEL III Diagnosis: Type 2 diabetes mellitus with hyperglycemia[ICD10: E11.65] Claudia Nicole MD, [facility] CPT-4: 60221 10/26/2017 ([id number]) Miscellaneou s no charge Diagnosis: Type 2 diabetes mellitus with hyperglycemia[ICD10: E11.65] Claudia Nicole MD, [facility] CPT-4: 18409 10/18/2017 ([id number]) 62458 EST. P ATIENT, LEVEL IV Diagnosis: Type 2 diabetes mellitus with diabetic autonomic (poly)neuropathy[ICD10: E11.43] Diagnosis: Essential (primary) hypertension[ICD10: I10] Mila Nicole MD, C CPT-4: 72900 09/22/2017 ([id number]) 72142 EST. P ATIENT, LEVEL IV Diagnosis: Type 2 diabetes mellitus with hyperglycemia[ICD10: E11.65] Diagnosis: Paroxysmal atrial fibrillation[ICD10: I48.0] Diagnosis: Essential (primary) hypertension[ICD10: I10] Mila Nicole MD, [facility] CPT-4: 64869 07/06/2017 ([id number]) 27332 EST. P ATIENT, LEVEL IV Diagnosis: Essential (primary) hypertension[ICD10: I10] Diagnosis: Type 2 diabetes mellitus with hyperglycemia[ICD10: E11.65] Diagnosis: Paroxysmal atrial fibrillation[ICD10: I48.0] Claudia Nicole MD, [facility] CPT-4: 96321 06/03/2017 20926 EST. PATIENT, LEVEL III Diagnosis: Generalized anxiety disorder[ICD10: F41.1] Diagnosis: Major depressive disorder, recurrent, moderate[ICD10: F33.1] Diagnosis: Paroxysmal tachycardia, unspecified[ICD10: I47.9] Gardenia Nicole MD, [facility] CPT-4: 41713 05/12/2017 ([id number]) 25508 EST. P ATIENT, LEVEL IV Diagnosis: Essential (primary) hypertension[ICD10: I10] Diagnosis: Cough[ICD10: R05] Diagnosis: Dysuria[ICD10: R30.0] Mila Nicole MD, [facility] CPT-4: 25652 04/15/2017 ([id number]) 14000 EST. P ATIENT, LEVEL IV Diagnosis: Type 2 diabetes mellitus with hyperglycemia[ICD10: E11.65] Diagnosis: Essential (primary) hypertension[ICD10: I10] Mila Nicole MD, [facility] CPT-4: 37126 03/19/2017 ([id number]) 60693 EST. P ATIENT, LEVEL III Diagnosis: Type 2 diabetes mellitus with hyperglycemia[ICD10: E11.65] Mila Nicole MD, [facility] CPT-4: 07382 02/03/2017 78677 EST. PATIENT, LEVEL IV Diagnosis: Generalized anxiety disorder[ICD10: F41.1] Diagnosis: Type 2 diabetes mellitus with hyperglycemia[ICD10: E11.65] Diagnosis: Essential (primary) hypertension[ICD10: I10] Gardenia Nicole MD, [facility] CPT-4: 59145 01/07/2017 ([id number]) 89337 EST. P ATIENT, LEVEL III Diagnosis: Type 2 diabetes mellitus with hyperglycemia[ICD10: E11.65] Diagnosis: Encounter for immunization[ICD10: Z23] Mila Nicole MD, [facility] CPT-4: 71374 12/17/2016 ([id number]) 00869 EST. P ATIENT, LEVEL IV Diagnosis: Type 2 diabetes mellitus with hyperglycemia[ICD10: E11.65] Diagnosis: Essential (primary) hypertension[ICD10: I10] Diagnosis: Major depressive disorder, recurrent, mild[ICD10: F33.0] Mila Nicole MD, [facility] CPT-4: 97807 09/14/2016 ([id number]) 36233 EST. 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 CPT-4: 90043 06/18/2016 ([id number]) 32847 EST. P ATIENT, LEVEL IV Diagnosis: Type 2 diabetes mellitus with hyperglycemia[ICD10: E11.65] Diagnosis: Essential (primary) hypertension[ICD10: I10] Mila Nicole MD, [facility] CPT-4: 87546 04/16/2016 ([id number]) 16381 EST. 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 P ATIENT, LEVEL IV Diagnosis: Type 2 diabetes mellitus with hyperglycemia[ICD10: E11.65] Diagnosis: Encounter for immunization[ICD10: Z23] Diagnosis: Essential (primary) hypertension[ICD10: I10] Mila Nicole MD, C CPT-4: 75730 11/14/2015 ([id number]) 52416 EST. P ATIENT, LEVEL IV Diagnosis: Type 2 diabetes mellitus with hyperglycemia[ICD10: E11.65] Diagnosis: Essential (primary) hypertension[ICD10: I10] Diagnosis: Low back pain[ICD10: M54.5] Mila Nicole MD, [facility] CPT-4: 92044 08/14/2015 ([id number]) 75178 EST. P ATIENT, LEVEL IV Diagnosis: Type 2 diabetes mellitus with hyperglycemia[ICD10: E11.65] Diagnosis: Essential (primary) hypertension[ICD10: I10] Diagnosis: Hypothyroidism, unspecified[ICD10: E03.9] Mila Nicole MD, C CPT-4: 37480 07/17/2015 ([id number]) 03857 EST. P ATIENT, LEVEL IV Diagnosis: Essential (primary) hypertension[ICD10: I10] Diagnosis: Type 2 diabetes mellitus with hyperglycemia[ICD10: E11.65] Diagnosis: Headache[ICD10: R51] Gardenia Nicole MD, [facility] CPT-4: 21013 03/25/2015 ([id number]) 88325 EST. P ATIENT, LEVEL IV Diagnosis: ESSENTIAL HYPERTENSION[ICD9: 401.9] Diagnosis: DIABETES TYPE II[ICD9: 250.00] Diagnosis: Aortic stenosis[ICD9: 424.1] Mila Nicole MD, [facility] CPT-4: 69048 12/04/2014 ([id number]) OFFICE VISI T, NEW - LEVEL 4 Diagnosis: ESSENTIAL HYPERTENSION[ICD9: 401.9] Diagnosis: Diabetes mellitus out of control[ICD9: 250.02] Mila Nicole MD, C CPT-4: 91535 08/14/2014 Plan of Care Planned Activity Notes C odes Status Date Appointment: Lab Draw 04/28/2018 Visit Plan: RUQ pain, generalized a bdominal pain - ongoing, intermittent - will check labs and CT scan due to the pains severity and persistence - pt is to notify clinic if symptoms change, or with any changes, questions, or concerns. 04/27/2018 App[facility]ment[phone] [facility] [place] (10 min) Simple 04/27/2018 Patient Education: Patient Medication Summary Completed 04/27/2018 [facility]ment[phone] [facility] [place] (15 min) Moderate 04/05/2018 Visit [...] regimen. 03/28/2018 App[facility]ment: [phone] [facility] [place] (15 min) Moderate 03/28/2018 Patient Education: Patient Medication Summary Completed 03/28/2018 Patient Education: Hypertension Completed 03/28/2018 Care Plan: ECHO EXAM OF ABDOMEN Pending 03/28/2018 Visit Plan: Low back pain-xray lumb ar spine Dysuria- improved-will culture urine QL-tlwptm-ez changes today 02/24/2018 App[facility]ment: [phone] [phone] (15 min) Moderate 02/24/2018 Patient Education: Patient [...] current medications. 01/27/2018 Appointment: Claudia Pruitt WPtel: [phone] (15 min) Moderate 01/27/2018 Patient Education: [...] any worse 11/25/2017 Appointment: Claudia Pruitt WPtel: [phone] (15 min) Moderate 11/25/2017 Patient Education: Patient Medication Summary Completed 11/25/2017 Appointment: Mila Nicole WPtel: [facility] (15 min) Moderate 10/28/2017 Visit Plan: [...] to appt. 10/26/2017 Appointment: Claudia Pruitt WPtel: [phone] (15 min) Moderate 10/26/2017 Patient Education: [...] of plan. 10/11/2017 Appointment: Claudia Pruitt WPtel: [phone] (30 min) Complex 10/11/2017 Patient Education: Patient [...] 09/22/2017 Appointment: [phone] [facility] (15 min) Moderate 09/13/2017 Appointment: [facility] [phone] [facility] (15 min) Moderate [...] 07/06/2017 Appointment: Mila Nicole WPtel: [phone] [facility] (15 min) Moderate 07/06/2017 Patient Education: Patient Medication Summary Completed 07/06/2017 Appointment: Corey Mila WPtel: [phone] [facility] (15 min) Moderate 06/07/2017 Visit Plan: [...] less controlled. 06/03/2017 Appointment: Claudia Pruitt WPtel: [phone] (30 min) Complex 06/03/2017 Patient Education: [...] treatment plan 05/12/2017 Appointment: Gardenia Shah WPtel: [phone] [facility] (30 min) Complex 05/12/2017 Patient Education: [...] medication. 04/15/2017 App[facility]ment: [phone] (15 min) Moderate 04/15/2017 Patient Education: Patient Medication Summary Completed 04/15/2017 Visit Plan: Hypertension - well con elodialled - continue with current medications, continue with [...] units daily. 03/19/2017 Appointment: [phone] [facility] (15 min) Moderate 03/19/2017 Patient Education: Patient Medication Summary Completed 03/19/2017 Appointment: Mila Nicole WPtel: [phone] [facility] (15 min) Moderate 02/24/2017 Visit Plan: [...] HS 02/03/2017 Appointment: [phone] [facility] (15 min) Moderate 02/03/2017 Patient Education: [...] concerns. 01/07/2017 App[facility]ment: [phone] (30 min) Complex 01/07/2017 Patient Education: [...] to allow for greater blood glucose control. [id number], 02/2018 junior nordisk 12/17/2016 Appointment: Mila Nicole WPtel: [phone] [facility] (15 min) Moderate 12/17/2016 Patient Education: Patient Medication Summary Completed 12/17/2016 Patient Education: Obesity Completed 12/17/2016 Appointment: [phone] [facility] (15 min) Moderate 12/14/2016 Visit Plan: [...] current medications. 09/14/2016 Appointment: Mila Nicole WPtel: [facility]5 [facility] (15 min) Moderate 09/14/2016 Patient Education: Patient [...] at home. 06/18/2016 Appointment: Mila Nicole WPtel: [facility] (15 min) Moderate 06/18/2016 Patient Education: [...] 04/16/2016 Appointment: [facility] [phone] [facility] (15 min) Moderate 04/16/2016 Patient Education: [...] gabapentin 03/19/2016 Appointment: [facility] [phone] [facility] (15 min) Moderate 03/19/2016 Patient Education: [...] home. 11/14/2015 Appointment: [phone] [facility] (15 min) Moderate 11/14/2015 Patient Education: [...] Hgba1c 07/17/2015 Appointment: Mila Nicole WPtel: [address] [place] [address] (15 min) Moderate 07/17/2015 Patient Education: Patient [...] Completed 03/25/2015 Appointment: Mila Nicole WPtel: [address] [place] [address] (15 min) Moderate 01/14/2015 Visit Plan: Diabetes [...] glucose control. 08/14/2014 Appointment: [facility]Ptel: [phone] [facility] [place] ([place] New [...] to allow for greater blood glucose control. [id number], 02/2018 junior nordisk CHECK LABS AND UA XRAY LUMBAR . Low back pain-xray lumbar spine Dysuria- improved-will culture urine VK-sulbjo-ap changes today . Hypertension - wel l [...] No change in current medications. Decrease victoza awlter k to your previous dose of 1.2. [...]
--- OUTSIDE RECORDS SUMMARY | 2019-03-16 19:45 | XMS REPORT | Continuity of Care Document ---
Author Organization Unknown Address Unknown Phone Unavailable Allergies Active Description Code Type Severity Reaction Onset Reported/Identified Relationship to Patient Clinical Status Yes No Known Drug Allergies [id number] Drug Allergy Unknown N/A 12/30/2011 Yes canagliflozin [id number] Seamus g Allergy Severe LIGHT HEADED/HE 02/19/2019 Yes liraglutide [id number] Drug Aller gy Severe RAPID HEART RAT 02/19/2019 Yes Xqmyxei-Vre-Bkk Reductase Inhibitor [id number] Drug Allergy Severe MUSCLE PAIN 02/19/2019 Medications There is no data. Problems Date [...] ALI FACP CCDS Ot 424.1 08/03/2014 JOHN BAEZ, ALI FACP CCDS Ot 729.5 08/03/2014 JOHN BAEZ, ALI FACP CCDS Ot 786.09 08/03/2014 JOHN LEMUS FACC, ALI FACP CCDS Ot 786.59 08/21/2014 JOHN LEMUS FACC, ALI FACP CCDS Ot 250.00 08/21/2014 JOHN LEMUS FACC, ALI FACP CCDS Ot 424.1 08/21/2014 JOHN LEMUS FACC, ALI FACP CCDS Ot 729.5 08/21/2014 JOHN LEMUS FACC, ALI FACP CCDS Ot 786.09 08/21/2014 JOHN LEMUS FACC, DEMARIO FACP CCDS Ot 786.59 12/19/2014 GALE MENDEZ MD Ot 722.1 0 12/19/2014 GALE MENDEZ MD Ot 722.5 2 01/04/2015 LAITH BECK MD Ot M47.896 OTHER SPONDYLOSIS, LUMBAR REGION 01/04/2015 LAITH BECK MD Ot 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, 01/04/2015 LAITH BECK MD Ot Z79.899 OTHER SHELTER (CURRENT) DRUG THERAPY 01/09/2015 GALE MENDEZ MD Ot 722.1 0 01/09/2015 GALE MENDEZ MD Ot 722.5 2 03/23/2015 Ot V76.12 03/23/2015 Ot 715.91 03/23/2015 [...] FACP CCDS Ot 786.59 03/23/2015 JOHN LEMUS [facility], ALI FACP CCDS Ot 250.00 03/23/2015 JOHN LEMUS [facility], ALI FACP CCDS Ot 424.1 03/23/2015 JOHN LEMUS [facility], ALI FACP CCDS Ot 729.5 03/23/2015 JOHN LEMUS [facility], ALI FACP CCDS Ot 786.09 03/23/2015 JOHN LEMUS [facility], ALI FACP CCDS Ot 786.50 03/23/2015 JOHN LEMUS [facility], ALI FACP CCDS Ot V58.69 03/23/2015 GALE MENDEZ MD Ot 724.4 03/23/2015 GALE MENDEZ MD Ot 722.1 0 03/23/2015 GALE MENDEZ MD Ot 722.5 2 03/23/2015 ZORAIDA FORMAN APRN Ot 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 03/23/2015 ZORAIDA FORMAN APRN Ot N39 .0 URINARY TRACT INFECTION, SITE NOT SPECIF 03/23/2015 ZORAIDA FORMAN ERP PROJECT MANAGER Ot R11 .0 NAUSEA 04/30/2015 JOHN LEMUS [facility], ALI FACP CCDS Ot I35.0 04/30/2015 JOHN LEMUS [facility], ALI FACP CCDS Ot I65.23 04/30/2015 JOHN LEMUS [facility], ALI FACP CCDS Ot R42 05/07/2015 JOHN LEMUS [facility], ALI FACP CCDS Ot I35.0 05/07/2015 JOHN LEMUS [facility], ALI FACP CCDS Ot I65.23 05/07/2015 JOHN LEMUS [facility], ALI FACP CCDS Ot R42 06/04/2015 THOMAS MCGEE MD Ot I65.23 06/18/2015 THOMAS MCGEE MD Ot I65.23 07/15/2015 Ot V76.12 OTH SCREEN MAMMO- MALIGN NEOPLASM OF [place] 07/15/2015 Ot 715.91 OST EOARTHROS NOS- SHLDER 07/15/2015 Ot 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 07/15/2015 Ot 250.00 THEA B FAIZAN WO COMPL, TYPE II OR UNSPEC TY 07/15/2015 Ot 780.4 DIZZ INESS AND GIDDINESS 07/15/2015 Ot 780.8 GENE RALIZED HYPERHIDROSIS 07/15/2015 Ot V58.69 OT MED,LT,CURRENT USE 07/15/2015 Ot 729.5 PAIN IN LIMB 07/15/2015 HENRY BAIG MD Ot V76.12 OTH SCREEN MAMMO-MALIGN NEOPLASM OF [place] 07/15/2015 Ot 785.2 CARD IAC MURMURS NEC 07/15/2015 JOHN LEMUS FACC, ALI [...] CCDS Ot 786.59 CHEST PAIN NEC 07/15/2015 OJHN LEMUS FACC, ALI FACP CCDS Ot 250.00 [...] NEURITIS NOS 07/15/2015 GALE MENDEZ MD Ot 722.1 0 LUMBAR DISC DISPLACEMENT 07/15/2015 GALE MENDEZ MD Ot 722.5 2 LUMB/LUMBOSAC DISC DEGEN 07/15/2015 JOHN LEMUS FACC, ALI FACP CCDS Ot I35.0 NONRHEUMATIC AORTIC (VALVE) STENOSIS 07/15/2015 JOHN LEMUS FACC ALI FACP CCDS Ot I65.23 OCCLUSION AND STENOSIS OF [place]ILATERAL [place] 07/15/2015 JOHN LEMUS FACC, ALI FACP CCDS Ot R42 DIZZINESS AND GIDDINESS 07/15/2015 THOMAS MCGEE MD Ot I65.23 OCCLUSION AND STENOSIS OF [place] 07/15/2015 LAITH BECK MD, Ot M51. 16 INTERVERTEBRAL DISC DISORDERS W RADICULO 07/15/2015 LAITH BECK MD, Ot Z53. 8 PROCEDURE AND TREATMENT NOT CARRIED OUT 07/19/2015 LAITH BECK MD Ot M47.816 SPONDYLOSIS W/O MYELOPATHY OR RADICULOPA 07/19/2015 LAITH BECK MD, Ot M51. 16 INTERVERTEBRAL DISC DISORDERS W RADICULO 07/19/2015 LAITH BECK MD Ot Z79.899 OTHER TELEPHONE ADVICE NURSE (CURRENT) DRUG THERAPY 07/29/2015 LAITH BECK MD, Ot M51. 16 INTERVERTEBRAL DISC DISORDERS W RADICULO 07/29/2015 LAITH BECK MD, Ot Z53. 8 PROCEDURE AND TREATMENT NOT CARRIED OUT 08/08/2015 HTOMAS MCGEE MD Ot I65.23 OCCLUSION AND STENOSIS OF [place] 11/19/2015 BAIVINEET MATHIS PRODUCTION UNDERWRITER Ot I35.0 NONRHEUMATIC AORTIC (VALVE) STENOSIS 11/20/2015 BAIMA, VINEET L PRODUCTION UNDERWRITER Ot I35.0 NONRHEUMATIC AORTIC (VALVE) STENOSIS 11/20/2015 BAIMA, VINEET L PRODUCTION UNDERWRITER Ot I35.0 NONRHEUMATIC AORTIC (VALVE) STENOSIS 12/12/2015 BAIMA, VINEET L PRODUCTION UNDERWRITER Ot I35.0 NONRHEUMATIC AORTIC (VALVE) STENOSIS 12/19/2015 BAIMA, VINEET Hart PRODUCTION UNDERWRITER Ot I35.0 NONRHEUMATIC AORTIC (VALVE) STENOSIS 12/20/2015 Ot V76.12 OT SCREEN MAMMO- MALIGN NEOPLASM OF [place] 12/20/2015 Ot 715.91 OST EOARTHROS NOS- [place] 12/20/2015 Ot 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 12/20/2015 Ot 250.00 THEA B FAIZAN WO COMPL, TYPE II OR UNSPEC TY 12/20/2015 Ot 780.4 DIZZ INESS AND GIDDINESS 12/20/2015 Ot 780.8 GENE RALIZED HYPERHIDROSIS 12/20/2015 Ot V58.69 OT MED,LT,CURRENT USE 12/20/2015 Ot 729.5 PAIN IN LIMB 12/20/2015 SAFIA LEMUS, HENRY Camarena Ot V76.12 OTH SCREEN MAMMO-MALIGN NEOPLASM OF [place] 12/20/2015 Ot 785.2 CARD IAC MURMURS NEC 12/20/2015 JOHN BAEZC, ALI FACP CCDS Ot 250.00 DIAB FAIZAN WO COMPL, TYPE II OR UNSPEC TY 12/20/2015 JOHN LEMUS FACC, ALI FACP CCDS Ot 424.1 AORTIC VALVE DISORDER 12/20/2015 JOHN LEMUS FACC, ALI FACP CCDS Ot 729.5 PAIN IN LIMB 12/20/2015 JOHN LEMUS FACC, ALI FACP CCDS Ot 786.09 RESPIRATORY ABNORM NEC 12/20/2015 JOHN LEMUS FACDoc, ALI FACP CCDS Ot 786.59 CHEST PAIN [...] NEURITIS NOS 12/20/2015 GALE MENDEZ MD Ot 722.1 0 LUMBAR DISC DISPLACEMENT 12/20/2015 GALE MENDEZ MD Ot 722.5 2 LUMB/LUMBOSAC DISC DEGEN 12/20/2015 JOHN LEMUS FACC, ALI FACP CCDS Ot I35.0 NONRHEUMATIC AORTIC (VALVE) STENOSIS 12/20/2015 JOHN LEMUS FACC, ALI FACP CCDS Ot I65.23 OCCLUSION AND STENOSIS OF [place] 12/20/2015 JOHN LEMUS FACC, ALI FACP CCDS Ot R42 DIZZINESS AND GIDDINESS 12/20/2015 EVERARDO LEMUS, THOMAS Carvalho Ot I65.23 OCCLUSION AND STENOSIS OF [place] 12/20/2015 VINEET DASILVA PRODUCTION UNDERWRITER Ot I35.0 NONRHEUMATIC AORTIC (VALVE) STENOSIS 12/23/2015 KIRAN LEMUS, LAITH Bae Ot M51. 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 12/26/2015 Ot 250.00 THEA B FAIZAN WO COMPL, TYPE II OR UNSPEC TY 12/26/2015 Ot 780.4 DIZZ INESS AND GIDDINESS 12/26/2015 Ot 780.8 GENE RALIZED HYPERHIDROSIS 12/26/2015 Ot V58.69 OTH MED,LT,CURRENT USE 12/26/2015 Ot 729.5 PAIN IN LIMB 12/26/2015 SAFIA LEMUS, HENRY Camarena Ot V76.12 OTH SCREEN MAMMO-MALIGN NEOPLASM OF [place] 12/26/2015 Ot 785.2 CARD IAC MURMURS NEC 12/26/2015 JOHN LEMUS FACC, ALI [...] TYPE II OR UNSPEC TY 12/26/2015 JOHN ELMUS FACC, ALI FACP CCDS Ot 424.1 AORTIC [...] NEURITIS NOS 12/26/2015 GALE MENDEZ MD Ot 722.1 0 LUMBAR DISC DISPLACEMENT 12/26/2015 GALE MENDEZ MD Ot 722.5 2 LUMB/LUMBOSAC DISC DEGEN 12/26/2015 JOHN LEMUS FACC, ALI FACP CCDS Ot I35.0 NONRHEUMATIC AORTIC (VALVE) STENOSIS 12/26/2015 JOHN LEMUS FACC, ALI FACP CCDS Ot I65.23 OCCLUSION AND STENOSIS OF [place] 12/26/2015 JOHN LEMUS FACC, ALI FACP CCDS Ot R42 DIZZINESS AND GIDDINESS 12/26/2015 EVERARDO LEMUS, THOMAS Carvalho Ot I65.23 OCCLUSION AND STENOSIS OF [place] 12/26/2015 VINEET DASILVA PRODUCTION UNDERWRITER Ot I35.0 NONRHEUMATIC AORTIC (VALVE) STENOSIS 12/26/2015 KIRAN LEMUS, LAITH Bae Ot M51. 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 12/27/2015 Ot 250.00 THEA B FAIZAN WO COMPL, TYPE II OR UNSPEC TY 12/27/2015 Ot 780.4 DIZZ INESS AND GIDDINESS 12/27/2015 Ot 780.8 GENE RALIZED HYPERHIDROSIS 12/27/2015 Ot V58.69 OTH MED,LT,CURRENT USE 12/27/2015 Ot 729.5 PAIN IN LIMB 12/27/2015 SAFIA LEMUS, HENRY Camarena Ot V76.12 OTH SCREEN MAMMO-MALIGN NEOPLASM OF [place] 12/27/2015 Ot 785.2 CARD IAC MURMURS NEC 12/27/2015 JOHN BAEZC, ALI FACP CCDS Ot 250.00 DIAB FAIZAN WO COMPL, TYPE II OR UNSPEC TY 12/27/2015 JOHN LEMUS FACC, ALI FACP CCDS Ot 424.1 AORTIC VALVE DISORDER 12/27/2015 JONH LEMUS FACC, ALI FACP CCDS Ot 729.5 [...] NEURITIS NOS 12/27/2015 GALE MENDEZ MD Ot 722.1 0 LUMBAR DISC DISPLACEMENT 12/27/2015 GALE MENDEZ MD Ot 722.5 2 LUMB/LUMBOSAC DISC DEGEN 12/27/2015 JOHN LEMUS FACC, DEMARIO FACP CCDS Ot I35.0 NONRHEUMATIC AORTIC (VALVE) STENOSIS 12/27/2015 DEMARIO LOPEZ MD, FACC FACP CCDS Ot I65.23 OCCLUSION AND STENOSIS OF [place] 12/27/2015 DEMARIO LOPEZ MD, FACC FACP CCDS Ot R42 DIZZINESS AND GIDDINESS 12/27/2015 EVERARDO LEMUS, THOMAS Carvalho Ot I65.23 OCCLUSION AND STENOSIS OF [place] 12/27/2015 VINEET DASILVA PRODUCTION UNDERWRITER Ot I35.0 NONRHEUMATIC AORTIC (VALVE) STENOSIS 12/27/2015 OPAL BLUE APRN Ot E11.9 TYPE 2 DIABETES MELLITUS WITHOUT COMPLIC 12/27/2015 LAITH BECK MD Ot M51. 16 INTERVERTEBRAL DISC DISORDERS W RADICULO 01/09/2016 LATIH BECK MD Ot M47.816 SPONDYLOSIS W/O MYELOPATHY OR RADICULOPA 01/09/2016 LAITH BECK MD, Ot M51. 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 16 INTERVERTEBRAL DISC DISORDERS W RADICULO 01/28/2016 LAITH BECK MD, Ot Z79.899 OTHER TELEPHONE ADVICE NURSE (CURRENT) DRUG THERAPY 02/04/2016 OPAL BLUE APRN Ot E11.9 TYPE 2 DIABETES MELLITUS WITHOUT COMPLIC 02/05/2016 LAITH BECK MD, Ot M47.816 SPONDYLOSIS W/O MYELOPATHY OR RADICULOPA 02/05/2016 LAITH BECK MD, Ot M51. 16 INTERVERTEBRAL DISC DISORDERS W RADICULO 02/05/2016 LAITH BECK MD, Ot Z79.899 OTHER TELEPHONE ADVICE NURSE (CURRENT) DRUG THERAPY 03/18/2016 OPAL BLUE APRN Ot E11.9 TYPE 2 DIABETES MELLITUS WITHOUT COMPLIC 03/25/2016 OPAL BLUE APRN Ot E11.9 TYPE 2 DIABETES MELLITUS WITHOUT COMPLIC 08/31/2016 LAITH BECK MD, Ot M51. 16 INTERVERTEBRAL DISC DISORDERS W RADICULO 08/31/2016 LAITH BECK MD, Ot Z79. 84 TELEPHONE ADVICE NURSE (CURRENT) USE OF ORAL HYPOGLYC 08/31/2016 LAITH BECK MD, Ot Z79.899 OTHER SHELTER (CURRENT) DRUG THERAPY 09/17/2016 LAITH BECK MD, Ot M51. 16 INTERVERTEBRAL DISC DISORDERS W RADICULO 09/17/2016 LAITH BECK MD, Ot Z79. 84 TELEPHONE ADVICE NURSE (CURRENT) USE OF ORAL HYPOGLYC 09/17/2016 LAIHT BECK MD, Ot Z79.899 OTHER TELEPHONE ADVICE NURSE (CURRENT) DRUG THERAPY 02/01/2017 DEMARIO LOPEZ MD, FACC, FACP CCDS Ot E13.9 OTHER SPECIFIED DIABETES MELLITUS WITHOU 02/01/2017 DEMARIO LOPEZ MD, FACCP CCDS Ot I35.0 NONRHEUMATIC AORTIC (VALVE) STENOSIS 02/01/2017 DEMARIO LOPEZ MD, FACCP CCDS Ot I65.23 OCCLUSION AND STENOSIS OF [place]ATER[place] 02/01/2017 DEMARIO LOPEZ MD, FACCP CCDS Ot N18.3 CHRONIC KIDNEY DISEASE, STAGE 3 (MODERAT 02/01/2017 JOHN LEMUS FACC, ALI FACP CCDS Ot R06.09 OTHER FORMS OF DYSPNEA 02/02/2017 JOHN LEMUS FACC, ALI FACP CCDS Ot E13.9 OTHER SPECIFIED DIABETES MELLITUS WITHOU 02/02/2017 JOHN MD FACC, ALI FACP CCDS Ot I35.0 NONRHEUMATIC AORTIC (VALVE) STENOSIS 02/02/2017 JOHN MD FACC, ALI FACP CCDS Ot I65.23 OCCLUSION AND STENOSIS OF [place] 02/02/2017 JOHN MD FACC, ALI FACP CCDS Ot N18.3 CHRONIC KIDNEY DISEASE, STAGE 3 (MODERAT 02/02/2017 JOHN MD FACC, ALI FACP CCDS Ot R06.09 OTHER [...] STENOSIS OF [place]ILATER[place] 02/18/2017 OPAL BLUE APRN Ot E11.9 TYPE 2 DIABETES MELLITUS WITHOUT COMPLIC 02/18/2017 KURTIS DIEGO MD Ot A41.9 SEPSIS, UNSPECIFIED ORGANISM 02/18/2017 KURTIS DIEGO MD Ot E03.9 HYPOTHYROIDISM, UNSPECIFIED 02/18/2017 KURTIS DIEGO MD Ot E11.21 TYPE 2 DIABETES MELLITUS WITH DIABETIC N 02/18/2017 KURTIS DIEGO MD Ot E11.42 TYPE 2 DIABETES MELLITUS WITH DIABETIC P 02/18/2017 KURTIS DIEGO MD Ot E78.5 HYPERLIPIDEMIA, UNSPECIFIED 02/18/2017 KURTIS DIEGO MD Ot F32.9 MAJOR DEPRESSIVE DISORDER, SINGLE EPISOD 02/18/2017 KURTIS DIEGO MD Ot F41.9 ANXIETY DISORDER, UNSPECIFIED 02/18/2017 KURTIS DIEGO MD Ot 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 02/18/2017 KURTIS DIEGO MD Ot I25.10 ATHSCL HEART DISEASE OF [place] CORONARY 02/18/2017 KURTIS DIEGO MD Ot I25.2 OLD MYOCARDIAL INFARCTION 02/18/2017 KURTIS DIEGO MD, Ot I25.5 ISCHEMIC CARDIOMYOPATHY 02/18/2017 KURTIS DIEGO MD Ot I50.21 ACUTE SYSTOLIC (CONGESTIVE) HEART FAILUR 02/18/2017 KURTIS DIEGO MD, Ot I65.23 OCCLUSION AND STENOSIS OF [place] 02/18/2017 KURTIS DIEGO MD, Ot N18.3 CHRONIC KIDNEY DISEASE, STAGE 3 (MODERAT 02/18/2017 KURTIS DIEGO MD, Ot N39.0 URINARY TRACT INFECTION, SITE NOT SPECIF 02/18/2017 KURTIS DIEGO MD, Ot Z79.84 TELEPHONE ADVICE NURSE (CURRENT) USE OF ORAL HYPOGLYC 02/18/2017 KURTIS DIEGO MD Ot Z82.49 FAMILY HX OF ISCHEM HEART DIS AND OTH DI 02/18/2017 KURTIS DIEGO MD Ot Z96.653 PRESENCE OF ARTIFICIAL KNEE JOINT, BILAT 03/01/2017 JOHN LEMUS FACC, ALI FACP CCDS Ot E13.9 OTHER SPECIFIED DIABETES MELLITUS WITHOU 03/01/2017 JOHN LEMUS FACC, ALI FACP CCDS Ot I35.0 NONRHEUMATIC AORTIC (VALVE) STENOSIS 03/01/2017 JOHN LEMUS FACC, ALI FACP CCDS Ot I65.23 OCCLUSION AND STENOSIS OF [place] 03/01/2017 JOHN BAEZC, ALI FACP CCDS Ot N18.3 CHRONIC KIDNEY DISEASE, STAGE 3 (MODERAT 03/01/2017 JOHN LEMUS FACC, ALI FACP CCDS Ot R06.09 OTHER FORMS OF DYSPNEA 05/07/2017 TNAA OVIEDO MD Ot Z48.812 ENCNTR FOR SURGICAL AFTCR FOLLOWING SURG 05/07/2017 TANA OVIEDO MD Ot Z95.5 PRESENCE OF CORONARY ANGIOPLASTY IMPLANT 05/25/2017 KURTIS DIEGO MD Ot E03.9 HYPOTHYROIDISM, UNSPECIFIED 05/25/2017 KURTIS DIEGO MD Ot E11.21 TYPE 2 DIABETES MELLITUS WITH DIABETIC N 05/25/2017 KURTIS DIEGO MD Ot 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 PERIPHERAL AN 05/25/2017 KURTIS DIEGO MD Ot E78.00 PURE HYPERCHOLESTEROLEMIA, UNSPECIFIED 05/25/2017 KURTIS DIEGO MD Ot F32.9 MAJOR DEPRESSIVE DISORDER, SINGLE EPISOD 05/25/2017 KURTIS DIEGO MD Ot F41.9 ANXIETY DISORDER, UNSPECIFIED 05/25/2017 KURTIS DIEGO MD Ot I08.3 COMB RHEUMATIC DISORD OF [place], AORTIC 05/25/2017 KURTIS DIEGO MD Ot I1 0 ESSENTIAL (PRIMARY) HYPERTENSION 05/25/2017 KURTIS DIEGO MD, Ot I11.0 HYPERTENSIVE HEART DISEASE WITH HEART FA 05/25/2017 KURTIS DIEGO MD, Ot I25.10 ATHSCL HEART DISEASE OF [place] CORONARY 05/25/2017 KURTIS DIEGO MD Ot I25.2 OLD MYOCARDIAL INFARCTION 05/25/2017 KURTIS DIEGO MD, Ot I25.5 ISCHEMIC CARDIOMYOPATHY 05/25/2017 KURTIS DIEGO MD Ot I48.0 PAROXYSMAL ATRIAL FIBRILLATION 05/25/2017 KURTIS DIEGO MD, Ot I50.23 ACUTE ON CHRONIC SYSTOLIC (CONGESTIVE) H 05/25/2017 KURTIS DIEGO MD Ot I50.31 ACUTE DIASTOLIC (CONGESTIVE) HEART FAILU 05/25/2017 KURTIS DIEGO MD Ot I65.23 OCCLUSION AND STENOSIS OF [place] 05/25/2017 KURTIS DIEGO MD, Ot N18.3 CHRONIC KIDNEY DISEASE, STAGE 3 (MODERAT 05/25/2017 KURTIS DIEGO MD Ot Z79.84 TELEPHONE ADVICE NURSE (CURRENT) USE OF ORAL HYPOGLYC 05/25/2017 KURTIS DIEGO MD Ot Z82.49 FAMILY HX OF ISCHEM HEART DIS AND OTH DI 05/25/2017 KURTIS DIEGO MD Ot Z95.5 PRESENCE OF CORONARY ANGIOPLASTY IMPLANT 05/25/2017 KURTIS DIEGO MD, Ot Z96.653 PRESENCE OF ARTIFICIAL KNEE JOINT, BILAT 05/26/2017 KURTIS DIEGO MD Ot E03.9 HYPOTHYROIDISM, UNSPECIFIED 05/26/2017 KURTIS DIEGO MD, Ot E11.21 TYPE 2 DIABETES MELLITUS WITH DIABETIC N 05/26/2017 KURTIS DIEGO MD Ot 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 PERIPHERAL AN 05/26/2017 KURTIS DIEGO MD Ot E78.00 PURE HYPERCHOLESTEROLEMIA, UNSPECIFIED 05/26/2017 KURTIS DIEGO MD Ot F32.9 MAJOR DEPRESSIVE DISORDER, SINGLE EPISOD 05/26/2017 KURTIS DIEGO MD Ot F41.9 ANXIETY DISORDER, UNSPECIFIED 05/26/2017 KURTIS DIEGO MD Ot I08.3 COMB RHEUMATIC DISORD OF [place], AORTIC 05/26/2017 KURTIS DIEGO MD, Ot I1 0 ESSENTIAL (PRIMARY) HYPERTENSION 05/26/2017 KURTIS DIEGO MD Ot I11.0 HYPERTENSIVE HEART DISEASE WITH HEART FA 05/26/2017 KURTIS DIEGO MD Ot I25.10 ATHSCL HEART DISEASE OF [place] CORONARY 05/26/2017 KURTIS DIEGO MD Ot I25.2 OLD MYOCARDIAL INFARCTION 05/26/2017 KURTIS DIEGO MD, Ot I25.5 ISCHEMIC CARDIOMYOPATHY 05/26/2017 KURTIS DIEGO MD Ot I48.0 PAROXYSMAL ATRIAL FIBRILLATION 05/26/2017 KURTIS DIEGO MD Ot I50.23 ACUTE ON CHRONIC SYSTOLIC (CONGESTIVE) H 05/26/2017 KURTIS DIEGO MD, Ot I50.31 ACUTE DIASTOLIC (CONGESTIVE) HEART FAILU 05/26/2017 KURTIS DIEGO MD, Ot I65.23 OCCLUSION AND STENOSIS OF [place] 05/26/2017 KURTIS DIEGO MD, Ot N18.3 CHRONIC KIDNEY DISEASE, STAGE 3 (MODERAT 05/26/2017 KURTIS DIEGO MD, Ot Z79.84 TELEPHONE ADVICE NURSE (CURRENT) USE OF ORAL HYPOGLYC 05/26/2017 KURTIS DIEGO MD, Ot Z82.49 FAMILY HX OF ISCHEM HEART DIS AND OTH DI 05/26/2017 KURTIS DIEGO MD Ot Z95.5 PRESENCE OF CORONARY ANGIOPLASTY IMPLANT 05/26/2017 KURTIS DIEGO MD, Ot Z96.653 PRESENCE OF ARTIFICIAL KNEE JOINT, BILAT 05/26/2017 KURTIS DIEGO MD Ot E03.9 HYPOTHYROIDISM, UNSPECIFIED 05/26/2017 KURTIS DIEGO MD Ot E11.21 TYPE 2 DIABETES MELLITUS WITH DIABETIC N 05/26/2017 KURTIS DIEGO MD Ot 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 PERIPHERAL AN 05/26/2017 KURTIS DIEGO MD Ot E78.00 PURE HYPERCHOLESTEROLEMIA, UNSPECIFIED 05/26/2017 KURTIS DIEGO MD Ot F32.9 MAJOR DEPRESSIVE DISORDER, SINGLE EPISOD 05/26/2017 KURTIS DIEGO MD Ot F41.9 ANXIETY DISORDER, UNSPECIFIED 05/26/2017 KURTIS DIEGO MD Ot I08.3 COMB RHEUMATIC DISORD OF [place], AORTIC 05/26/2017 KURTIS DIEGO MD Ot 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 FAIL AND ST 05/26/2017 KURTIS DIEGO MD Ot I25.10 ATHSCL HEART DISEASE OF [place] CORONARY 05/26/2017 KURTIS DIEGO MD Ot I25.2 OLD MYOCARDIAL INFARCTION 05/26/2017 KURTIS DIEGO MD, Ot I25.5 ISCHEMIC CARDIOMYOPATHY 05/26/2017 KURTIS DIEGO [...] (MODERAT 05/26/2017 KURTIS DIEGO MD Ot Z79.84 SHELTER (CURRENT) USE OF ORAL HYPOGLYC 05/26/2017 KURTIS [...] PRESENCE OF CORONARY ANGIOPLASTY IMPLANT 08/25/2017 DANIAL TUNDE Casey Ot E11.9 TYPE 2 DIABETES MELLITUS WITHOUT COMPLIC 08/25/2017 DANIAL TUNDE K Ot E78.00 PURE HYPERCHOLESTEROLEMIA, UNSPECIFIED 08/25/2017 DANIAL TUNDE K Ot F32.9 MAJOR DEPRESSIVE DISORDER, SINGLE EPISOD 08/25/2017 DANIAL TUNDE K Ot F41.9 ANXIETY DISORDER, UNSPECIFIED 08/25/2017 DANIAL TUNDE K Ot I25.10 ATHSCL HEART DISEASE OF [place] CORONARY 08/25/2017 DANIAL TUNDE Casey Ot M16.12 UNILATERAL PRIMARY OSTEOARTHRITIS, LEFT 08/25/2017 DANIAL TUNDE K Ot M25.552 PAIN IN LEFT HIP 08/25/2017 DANIAL ADAMES TUNDE Casey Ot Z79.4 SHELTER (CURRENT) USE OF INSULIN 08/25/2017 DANIAL TUNDE K Ot Z79.51 SHELTER (CURRENT) USE OF INHALED STERO 08/25/2017 DANIAL TUNDE K Ot Z88.6 ALLERGY STATUS TO ANALGESIC AGENT STATUS 08/25/2017 DANIAL ADAMES TUNDE Casey Ot Z88.8 ALLERGY STATUS TO OTH DRUG/MEDS/BIOL SUB 08/25/2017 DANIAL TUNDE K Ot Z90.710 ACQUIRED ABSENCE OF BOTH CERVIX AND UTER 08/25/2017 DANIAL ADAMES TUNDE K Ot Z90.89 ACQUIRED ABSENCE OF OTHER ORGANS 08/25/2017 DANIAL ADAMES TUNDE K Ot Z95.5 PRESENCE OF CORONARY ANGIOPLASTY IMPLANT 08/25/2017 DANIAL TUNDE K Ot Z98.890 OTHER SPECIFIED POSTPROCEDURAL STATES 08/27/2017 DANIAL TUNDE K Ot E11.9 TYPE 2 DIABETES MELLITUS WITHOUT COMPLIC 08/27/2017 DANIAL TUNDE K Ot E78.00 PURE HYPERCHOLESTEROLEMIA, UNSPECIFIED 08/27/2017 DANIAL TUNDE K Ot F32.9 MAJOR DEPRESSIVE DISORDER, SINGLE EPISOD 08/27/2017 DANIAL TUNDE K Ot F41.9 ANXIETY DISORDER, UNSPECIFIED 08/27/2017 TUNDE BARROW DO Ot I25.10 ATHSCL HEART DISEASE OF [place] CORONARY 08/27/2017 TUNDE BARROW DO Ot M16.12 UNILATERAL PRIMARY OSTEOARTHRITIS, LEFT 08/27/2017 TUNDE BARROW DO Ot M25.552 PAIN IN LEFT HIP 08/27/2017 TUNDE BARROW DO Ot Z79.4 SHELTER (CURRENT) USE OF INSULIN 08/27/2017 TUNDE BARROW DO Ot Z79.51 SHELTER (CURRENT) USE OF INHALED STERO 08/27/2017 TUNDE BARROW DO Ot Z88.6 ALLERGY STATUS TO ANALGESIC AGENT STATUS 08/27/2017 TUNDE BARROW DO Ot Z88.8 ALLERGY STATUS TO OTH DRUG/MEDS/BIOL SUB 08/27/2017 TUNDE BARROW DO Ot Z90.710 ACQUIRED ABSENCE OF [...] Ot Z95.5 PRESENCE OF CORONARY ANGIOPLASTY IMPLANT 12/02/2017 SAFIA LEMUS, HENRY Camarena Ot V76.12 OTH SCREEN MAMMO-MALIGN NEOPLASM OF [place] 12/02/2017 Ot 785.2 CARD IAC MURMURS NEC 12/02/2017 JOHN LEMUS FACC, ALI SASHAP CCDS Ot 250.00 DIAB FAIZAN WO COMPL, TYPE II OR UNSPEC TY 12/02/2017 JOHN LEMUS FACC, DEMARIO FACP CCDS Ot 424.1 AORTIC VALVE DISORDER 12/02/2017 JOHN LEMUS FACC, DEMARIO BAEZP CCDS Ot 729.5 PAIN IN LIMB 12/02/2017 JOHN LEMUS FACC, ALI FACP CCDS Ot 786.09 RESPIRATORY ABNORM NEC 12/02/2017 JOHN LEMUS FACC, ALI FACP CCDS Ot 786.59 CHEST PAIN NEC 12/02/2017 JOHN LEMUS FACC, ALI FACP CCDS Ot 250.00 DIAB FAIZAN WO COMPL, TYPE II OR UNSPEC TY 12/02/2017 JOHN LEMUS FACC, ALI FACP CCDS Ot 424.1 AORTIC VALVE DISORDER 12/02/2017 JOHN LEMUS FACC, ALI FACP CCDS Ot 729.5 PAIN IN LIMB 12/02/2017 JOHN LEMUS FACC, ALI FACP CCDS Ot 786.09 RESPIRATORY ABNORM NEC 12/02/2017 JOHN LEMUS FACC, ALI FACP CCDS Ot 786.50 CHEST PAIN NOS 12/02/2017 JOHN LEMUS FACC, ALI FACP CCDS Ot V58.69 OT MED,LT,CURRENT USE 12/02/2017 GALE MENDEZ MD Ot 724.4 LUMBOSACRAL NEURITIS NOS 12/02/2017 GALE MENDEZ MD Ot 722.1 0 LUMBAR DISC DISPLACEMENT 12/02/2017 GALE MENDEZ MD Ot 722.5 2 LUMB/LUMBOSAC DISC DEGEN 12/02/2017 JOHN LEMUS FACC, DEMARIO FACP CCDS Ot I35.0 NONRHEUMATIC AORTIC (VALVE) STENOSIS 12/02/2017 JOHN LEMUS FACC, ALI FACP CCDS Ot I65.23 OCCLUSION AND STENOSIS OF BILATERAL [place] 12/02/2017 JOHN LEMUS FACC, ALI FACP CCDS Ot R42 DIZZINESS AND GIDDINESS 12/02/2017 THOMAS MCGEE MD Ot I65.23 OCCLUSION AND STENOSIS OF [place]ILATERAL [place] 12/02/2017 VINEET DASILVA PRODUCTION UNDERWRITER Ot I35.0 NONRHEUMATIC AORTIC (VALVE) STENOSIS 12/02/2017 LAITH BECK MD Ot M47.816 SPONDYLOSIS W/O MYELOPATHY OR RADICULOPA 12/02/2017 LAITH BECK MD Ot M51. 16 INTERVERTEBRAL DISC DISORDERS W RADICULO 12/02/2017 LAITH BECK MD Ot Z79.899 OTHER SHELTER (CURRENT) DRUG THERAPY 12/02/2017 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 Ot E11.9 TYPE 2 DIABETES MELLITUS WITHOUT COMPLIC 12/02/2017 LAITH BECK MD Ot M51. 16 INTERVERTEBRAL DISC DISORDERS W RADICULO 12/02/2017 LAITH BECK MD Ot Z79. 84 SHELTER (CURRENT) USE OF ORAL HYPOGLYC 12/02/2017 LAITH BECK MD Ot Z79.899 OTHER SHELTER (CURRENT) DRUG THERAPY 12/02/2017 JOHN LEMUS FACC, ALI FACP CCDS Ot E13.9 OTHER SPECIFIED DIABETES MELLITUS WITHOU 12/02/2017 JOHN LEMUS FACC, ALI FACP CCDS Ot I35.0 NONRHEUMATIC AORTIC (VALVE) STENOSIS 12/02/2017 JOHN LEMUS FACC, ALI FACP CCDS Ot I65.23 OCCLUSION AND STENOSIS OF BILATERAL [place] 12/02/2017 JOHN LEMUS FACC, ALI FACP CCDS Ot N18.3 CHRONIC KIDNEY DISEASE, STAGE 3 (MODERAT 12/02/2017 JOHN BAEZC, ALI FACP CCDS Ot R06.09 OTHER FORMS OF DYSPNEA 12/02/2017 JOHN LEMUS FACC, ALI FACP CCDS Ot E13.9 OTHER SPECIFIED DIABETES MELLITUS WITHOU 12/02/2017 JOHN BAEZC, ALI FACP CCDS Ot I35.0 NONRHEUMATIC AORTIC (VALVE) STENOSIS 12/02/2017 JOHN LEMUS FACC, ALI FACP CCDS Ot I65.23 OCCLUSION AND STENOSIS OF BILATERAL [place] 12/02/2017 JOHN LEMUS FACC, ALI FACP CCDS Ot N18.3 CHRONIC KIDNEY DISEASE, STAGE 3 (MODERAT 12/02/2017 JOHN BAEZC, ALI FACP CCDS Ot R06.09 OTHER FORMS OF DYSPNEA 12/02/2017 TANA OVIEDO MD Ot Z48.812 ENCNTR FOR SURGICAL AFTCR FOLLOWING SURG 12/02/2017 TANA OVIEDO MD Ot Z95.5 PRESENCE OF CORONARY ANGIOPLASTY IMPLANT 12/02/2017 SAFIA LEMUS, HENRY Camarena Ot V76.12 OT SCREEN MAMMO-MALIGN NEOPLASM OF [place] 12/02/2017 Ot 785.2 CARD IAC MURMURS NEC 12/02/2017 JOHN LEMUS FACC, ALI FACP CCDS Ot 250.00 DIAB FAIZAN WO COMPL, TYPE II OR UNSPEC TY 12/02/2017 JOHN LEMUS FACC, ALI FACP CCDS Ot 424.1 AORTIC VALVE DISORDER 12/02/2017 JOHN LEMUS FACC, ALI FACP CCDS Ot 729.5 PAIN IN LIMB 12/02/2017 JOHN LEMUS FACC, ALI FACP CCDS Ot 786.09 RESPIRATORY ABNORM NEC 12/02/2017 JOHN LEMUS FACC, ALI FACP CCDS Ot 786.59 CHEST PAIN NEC 12/02/2017 JOHN LEMUS FACC, ALI FACP CCDS Ot 250.00 DIAB FAIZAN WO COMPL, TYPE II OR UNSPEC TY 12/02/2017 JOHN LEMUS FACC, ALI FACP CCDS Ot 424.1 AORTIC VALVE DISORDER 12/02/2017 JOHN LEMUS FACC, ALI FACP CCDS Ot 729.5 PAIN IN LIMB 12/02/2017 JOHN LEMUS FACC, ALI FACP CCDS Ot 786.09 RESPIRATORY ABNORM NEC 12/02/2017 JOHN LEMUS FACC, ALI FACP CCDS Ot 786.50 CHEST PAIN NOS 12/02/2017 JOHN LEMUS FACC, ALI FACP CCDS Ot V58.69 OT MED,LT,CURRENT USE 12/02/2017 GALE MENDEZ MD Ot 724.4 LUMBOSACRAL NEURITIS NOS 12/02/2017 GALE MENDEZ MD Ot 722.1 0 LUMBAR DISC DISPLACEMENT 12/02/2017 GALE MENDEZ MD Ot 722.5 2 LUMB/LUMBOSAC DISC DEGEN 12/02/2017 JOHN LEMUS FACC, ALI FACP CCDS Ot I35.0 NONRHEUMATIC AORTIC (VALVE) STENOSIS 12/02/2017 JOHN LEMUS FACC, ALI FACP CCDS Ot I65.23 OCCLUSION AND STENOSIS OF [place]IL[place] 12/02/2017 JOHN LEMUS FACC, ALI FACP CCDS Ot R42 DIZZINESS AND GIDDINESS 12/02/2017 THOMAS MCGEE MD Ot I65.23 OCCLUSION AND STENOSIS OF [place] 12/02/2017 VINEET DASILVA PRODUCTION UNDERWRITER Ot I35.0 NONRHEUMATIC AORTIC (VALVE) STENOSIS 12/02/2017 LAITH BECK MD Ot M47.816 SPONDYLOSIS W/O MYELOPATHY OR RADICULOPA 12/02/2017 LAITH BECK MD Ot M51. 16 INTERVERTEBRAL DISC DISORDERS W RADICULO 12/02/2017 LAITH BECK MD Ot Z79.899 OTHER SHELTER (CURRENT) DRUG THERAPY 12/02/2017 OPAL BLUE APRN Ot E11.9 TYPE 2 DIABETES MELLITUS WITHOUT COMPLIC 12/02/2017 LAITH BECK MD Ot M51. 16 INTERVERTEBRAL DISC DISORDERS W RADICULO 12/02/2017 LAITH BECK MD Ot Z79. 84 SHELTER (CURRENT) USE OF ORAL HYPOGLYC 12/02/2017 LAITH BECK MD Ot Z79.899 OTHER SHELTER (CURRENT) DRUG THERAPY 12/02/2017 JOHN LEMUS FACC, ALI FACP CCDS Ot E13.9 OTHER SPECIFIED DIABETES MELLITUS WITHOU 12/02/2017 JOHN LEMUS FACC, ALI FACP CCDS Ot I35.0 NONRHEUMATIC AORTIC (VALVE) STENOSIS 12/02/2017 JOHN LEMUS FACC, ALI FACP CCDS Ot I65.23 OCCLUSION AND STENOSIS OF [place] 12/02/2017 JOHN LEMUS FACC, ALI FACP CCDS Ot N18.3 CHRONIC KIDNEY DISEASE, STAGE 3 (MODERAT 12/02/2017 JOHN LEMUS FACC, ALI FACP CCDS Ot R06.09 OTHER FORMS OF DYSPNEA 12/02/2017 JOHN LEMUS FACC, ALI FACP CCDS Ot E13.9 OTHER SPECIFIED DIABETES MELLITUS WITHOU 12/02/2017 JOHN LEMUS FACC, ALI FACP CCDS Ot I35.0 NONRHEUMATIC AORTIC (VALVE) STENOSIS 12/02/2017 JOHN LEMUS FACC, ALI FACP CCDS Ot I65.23 OCCLUSION AND STENOSIS OF [place] 12/02/2017 JOHN LEMUS FACC, ALI FACP CCDS Ot N18.3 CHRONIC KIDNEY DISEASE, STAGE 3 (MODERAT 12/02/2017 JOHN LEMUS FACC, ALI FACP CCDS Ot R06.09 OTHER FORMS OF DYSPNEA 12/02/2017 TANA OVIEDO MD Ot Z48.812 ENCNTR FOR SURGICAL AFTCR FOLLOWING SURG 12/02/2017 TANA OVIEDO MD Ot Z95.5 PRESENCE OF CORONARY ANGIOPLASTY IMPLANT 12/02/2017 KURTIS DIEGO MD Ot A41.9 SEPSIS, UNSPECIFIED ORGANISM 12/02/2017 KURTIS DIEGO MD Ot D64.9 ANEMIA, UNSPECIFIED 12/02/2017 KURTIS DIEGO MD Ot E03.9 HYPOTHYROIDISM, UNSPECIFIED 12/02/2017 KURTIS DIEGO MD Ot E11.21 TYPE 2 DIABETES MELLITUS WITH DIABETIC N 12/02/2017 KURTIS DIEGO MD Ot 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 PERIPHERAL AN 12/02/2017 KURTIS DIEGO MD Ot E78.00 PURE HYPERCHOLESTEROLEMIA, UNSPECIFIED 12/02/2017 KURTIS DIEGO MD Ot E86.0 DEHYDRATION 12/02/2017 KURTIS DIEGO MD Ot F32.9 MAJOR DEPRESSIVE DISORDER, SINGLE EPISOD 12/02/2017 KURTIS DIEGO MD Ot F41.9 ANXIETY DISORDER, UNSPECIFIED 12/02/2017 KURTIS DIEGO MD Ot 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 12/02/2017 KURTIS DIEGO MD Ot I11.0 HYPERTENSIVE HEART DISEASE WITH HEART FA 12/02/2017 KURTIS DIEGO MD Ot I25.10 ATHSCL HEART DISEASE OF [place] CORONARY 12/02/2017 KURTIS DIEGO MD Ot I48.0 PAROXYSMAL ATRIAL FIBRILLATION 12/02/2017 KURTIS DIEGO MD Ot I50.32 CHRONIC DIASTOLIC (CONGESTIVE) HEART YAMILET 12/02/2017 KURTIS DIEGO MD Ot I65.23 OCCLUSION AND STENOSIS OF [place] 12/02/2017 KURTIS DIEGO MD Ot J18.9 PNEUMONIA, UNSPECIFIED ORGANISM 12/02/2017 KURTIS DIEGO MD Ot J30.2 OTHER SEASONAL ALLERGIC RHINITIS 12/02/2017 KURTIS DIEGO MD Ot M19.91 PRIMARY OSTEOARTHRITIS, UNSPECIFIED SITE 12/02/2017 KURTIS DIEGO MD Ot M54.9 DORSALGIA, UNSPECIFIED 12/02/2017 KURTIS DIEGO MD Ot N18.3 CHRONIC KIDNEY DISEASE, STAGE 3 (MODERAT 12/02/2017 KURTIS DIEGO MD Ot R04.2 HEMOPTYSIS 12/02/2017 KURTIS DIEGO MD Ot R06.03 ACUTE RESPIRATORY DISTRESS 12/02/2017 KURTIS DIEGO MD Ot Z6 6 DO NOT RESUSCITATE 12/02/2017 KURTIS DIEGO MD Ot Z79.01 TELEPHONE ADVICE NURSE (CURRENT) USE OF ANTICOAGULANT 12/02/2017 KURTIS DIEGO MD Ot Z79.84 SHELTER (CURRENT) USE OF ORAL HYPOGLYC 12/02/2017 KURTIS DIEGO MD Ot Z95.5 PRESENCE OF CORONARY ANGIOPLASTY IMPLANT 12/02/2017 KURTIS DIEGO MD Ot Z96.653 PRESENCE OF ARTIFICIAL KNEE JOINT, BILAT 12/03/2017 KURTIS DIEGO MD Ot A41.9 SEPSIS, UNSPECIFIED ORGANISM 12/03/2017 KURTIS DIEGO MD Ot D64.9 ANEMIA, UNSPECIFIED 12/03/2017 KURTIS DIEGO MD Ot E03.9 HYPOTHYROIDISM, UNSPECIFIED 12/03/2017 KURTIS DIEGO MD Ot E11.21 TYPE 2 DIABETES MELLITUS WITH DIABETIC N 12/03/2017 KURTIS DIEGO MD Ot 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 PERIPHERAL AN 12/03/2017 KURTIS DIEGO MD Ot E78.00 PURE HYPERCHOLESTEROLEMIA, UNSPECIFIED 12/03/2017 KURTIS DIEGO MD Ot E86.0 DEHYDRATION 12/03/2017 KURTIS DIEGO MD Ot F32.9 MAJOR DEPRESSIVE DISORDER, SINGLE EPISOD 12/03/2017 KURTIS DIEGO MD Ot F41.9 ANXIETY DISORDER, UNSPECIFIED 12/03/2017 KURTIS DIEGO MD Ot 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 12/03/2017 KURTIS DIEGO MD Ot I11.0 HYPERTENSIVE HEART DISEASE WITH HEART FA 12/03/2017 KURTIS DIEGO MD Ot I25.10 ATHSCL HEART DISEASE OF [place] CORONARY 12/03/2017 KURTIS DIEGO MD Ot I48.0 PAROXYSMAL ATRIAL FIBRILLATION 12/03/2017 KURTIS DIEGO MD Ot I50.32 CHRONIC DIASTOLIC (CONGESTIVE) HEART YAMILET 12/03/2017 KURTIS DIEGO MD Ot I65.23 OCCLUSION AND STENOSIS OF [place] 12/03/2017 KURTIS DIEGO MD Ot J18.9 PNEUMONIA, UNSPECIFIED ORGANISM 12/03/2017 KURTIS DIEGO MD Ot J30.2 OTHER SEASONAL ALLERGIC RHINITIS 12/03/2017 KURTIS DIEGO MD Ot M19.91 PRIMARY OSTEOARTHRITIS, UNSPECIFIED SITE 12/03/2017 KURTIS DIEGO MD Ot M54.9 DORSALGIA, UNSPECIFIED 12/03/2017 KURTIS DIEGO MD Ot N18.3 CHRONIC KIDNEY DISEASE, STAGE 3 (MODERAT 12/03/2017 KURTIS DIEGO MD Ot R04.2 HEMOPTYSIS 12/03/2017 KURTIS DIEGO MD Ot R06.03 ACUTE RESPIRATORY DISTRESS 12/03/2017 KURTIS DIEGO MD Ot Z6 6 DO NOT RESUSCITATE 12/03/2017 KURTIS DIEGO MD Ot Z79.01 TELEPHONE ADVICE NURSE (CURRENT) USE OF ANTICOAGULANT 12/03/2017 KURTIS DIEGO MD Ot Z79.84 TELEPHONE ADVICE NURSE (CURRENT) USE OF ORAL HYPOGLYC 12/03/2017 KURTIS DIEGO MD Ot Z95.5 PRESENCE OF CORONARY ANGIOPLASTY IMPLANT 12/03/2017 KURTIS DIEGO MD Ot Z96.653 PRESENCE OF ARTIFICIAL KNEE JOINT, BILAT 12/03/2017 KURTIS DIEGO MD Ot A41.9 SEPSIS, UNSPECIFIED ORGANISM 12/03/2017 KURTIS DIEGO MD Ot D64.9 ANEMIA, UNSPECIFIED 12/03/2017 KURTIS DIEGO MD Ot E03.9 HYPOTHYROIDISM, UNSPECIFIED 12/03/2017 KURTIS DIEGO MD Ot E11.21 TYPE 2 DIABETES MELLITUS WITH DIABETIC N 12/03/2017 KURTIS DIEGO MD Ot 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 PERIPHERAL AN 12/03/2017 KURTIS DIEGO MD Ot E78.00 PURE HYPERCHOLESTEROLEMIA, UNSPECIFIED 12/03/2017 KURTIS DIEGO MD Ot E86.0 DEHYDRATION 12/03/2017 KURTIS DIEGO MD Ot F32.9 MAJOR DEPRESSIVE DISORDER, SINGLE EPISOD 12/03/2017 KURTIS DIEGO MD Ot F41.9 ANXIETY DISORDER, UNSPECIFIED 12/03/2017 KURTIS DIEGO MD Ot 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 12/03/2017 KURTIS DIEGO MD Ot I11.0 HYPERTENSIVE HEART DISEASE WITH HEART FA 12/03/2017 KURTIS DIEGO MD Ot I25.10 ATHSCL HEART DISEASE OF [place] CORONARY 12/03/2017 KURTIS DIEGO MD Ot I48.0 PAROXYSMAL ATRIAL FIBRILLATION 12/03/2017 KURTIS DIEGO MD Ot I50.32 CHRONIC DIASTOLIC (CONGESTIVE) HEART YAMILET 12/03/2017 KURTIS DIEGO MD Ot I65.23 OCCLUSION AND STENOSIS OF [place] 12/03/2017 KURTIS DIEGO MD Ot J18.9 PNEUMONIA, UNSPECIFIED ORGANISM 12/03/2017 KURTIS DIEGO MD Ot J30.2 OTHER SEASONAL ALLERGIC RHINITIS 12/03/2017 KURTIS DIEGO MD Ot M19.91 PRIMARY OSTEOARTHRITIS, UNSPECIFIED SITE 12/03/2017 KURTIS DIEGO MD Ot M54.9 DORSALGIA, UNSPECIFIED 12/03/2017 KURTIS DIEGO MD Ot N18.3 CHRONIC KIDNEY DISEASE, STAGE 3 (MODERAT 12/03/2017 KURTIS DIEGO MD Ot R04.2 HEMOPTYSIS 12/03/2017 KURTIS DIEGO MD Ot R06.03 ACUTE RESPIRATORY DISTRESS 12/03/2017 KURTIS DIEGO MD Ot Z6 6 DO NOT RESUSCITATE 12/03/2017 KURTIS DIEGO MD Ot Z79.01 SHELTER (CURRENT) USE OF ANTICOAGULANT 12/03/2017 KURTIS DIEGO MD Ot Z79.84 TELEPHONE ADVICE NURSE (CURRENT) USE OF ORAL HYPOGLYC 12/03/2017 KURTIS DIEGO MD Ot Z95.5 PRESENCE OF CORONARY ANGIOPLASTY IMPLANT 12/03/2017 KURTIS DIEGO MD Ot Z96.653 PRESENCE OF ARTIFICIAL KNEE JOINT, BILAT 12/03/2017 KURTIS DIEGO MD Ot A41.9 SEPSIS, UNSPECIFIED ORGANISM 12/03/2017 KURTIS DIEGO MD Ot D64.9 ANEMIA, UNSPECIFIED 12/03/2017 KURTIS DIEGO MD Ot E03.9 HYPOTHYROIDISM, UNSPECIFIED 12/03/2017 KURTIS IDEGO MD Ot E11.21 TYPE 2 DIABETES MELLITUS WITH DIABETIC N 12/03/2017 KURTIS DIEGO MD Ot 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 PERIPHERAL AN 12/03/2017 KURTIS DIEGO MD Ot E78.00 PURE HYPERCHOLESTEROLEMIA, UNSPECIFIED 12/03/2017 KURTIS DIEGO MD Ot E86.0 DEHYDRATION 12/03/2017 KURTIS DIEGO MD Ot F32.9 MAJOR DEPRESSIVE DISORDER, SINGLE EPISOD 12/03/2017 KURTIS DIEGO MD Ot F41.9 ANXIETY DISORDER, UNSPECIFIED 12/03/2017 KURTIS DIEGO MD Ot 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 12/03/2017 KURTIS DIEGO MD Ot I11.0 HYPERTENSIVE HEART DISEASE WITH HEART FA 12/03/2017 KURTIS DIEGO MD, Ot I25.10 ATHSCL HEART DISEASE OF [place] CORONARY 12/03/2017 KURTIS DIEGO MD Ot I48.0 PAROXYSMAL ATRIAL FIBRILLATION 12/03/2017 KURTIS DIEGO MD Ot I50.32 CHRONIC DIASTOLIC (CONGESTIVE) HEART YAMILET 12/03/2017 KURTIS DIEGO MD, Ot I65.23 OCCLUSION AND STENOSIS OF [place] 12/03/2017 KURTIS DEIGO MD Ot J18.9 PNEUMONIA, UNSPECIFIED ORGANISM 12/03/2017 KURTIS DIEGO MD Ot J30.2 OTHER SEASONAL ALLERGIC RHINITIS 12/03/2017 KURTIS DIEGO MD Ot M19.91 PRIMARY OSTEOARTHRITIS, UNSPECIFIED SITE 12/03/2017 KURTIS DIEGO MD, Ot M54.9 DORSALGIA, UNSPECIFIED 12/03/2017 KURTIS DIEGO MD, Ot N18.3 CHRONIC KIDNEY DISEASE, STAGE 3 (MODERAT 12/03/2017 KURTIS DIEGO MD Ot R04.2 HEMOPTYSIS 12/03/2017 KURTIS DIEGO MD, Ot R06.03 ACUTE RESPIRATORY DISTRESS 12/03/2017 KURTIS DIEGO MD Ot Z6 6 DO NOT RESUSCITATE 12/03/2017 KURTIS DIEGO MD, Ot Z79.01 TELEPHONE ADVICE NURSE (CURRENT) USE OF ANTICOAGULANT 12/03/2017 KURTIS DIEGO MD Ot Z79.84 TELEPHONE ADVICE NURSE (CURRENT) USE OF ORAL HYPOGLYC 12/03/2017 KURTIS DIEGO MD Ot Z95.5 PRESENCE OF CORONARY ANGIOPLASTY IMPLANT 12/03/2017 KURTIS DIEGO MD Ot Z96.653 PRESENCE OF ARTIFICIAL KNEE JOINT, BILAT 12/04/2017 KURTIS DIEGO MD Ot A41.9 SEPSIS, UNSPECIFIED ORGANISM 12/04/2017 KURTIS DIEGO MD, Ot D64.9 ANEMIA, UNSPECIFIED 12/04/2017 KURTIS DIEGO MD Ot E03.9 HYPOTHYROIDISM, UNSPECIFIED 12/04/2017 KURTIS DIEGO MD Ot E11.21 TYPE 2 DIABETES MELLITUS WITH DIABETIC N 12/04/2017 KURTIS DIEGO MD, Ot 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 PERIPHERAL AN 12/04/2017 KURTIS DIEGO MD Ot E78.00 PURE HYPERCHOLESTEROLEMIA, UNSPECIFIED 12/04/2017 KURTIS DIEGO MD Ot E86.0 DEHYDRATION 12/04/2017 KURTIS DIEGO MD Ot F32.9 MAJOR DEPRESSIVE DISORDER, SINGLE EPISOD 12/04/2017 KURTIS DIEGO MD Ot F41.9 ANXIETY DISORDER, UNSPECIFIED 12/04/2017 KURTIS DIEGO MD Ot 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 12/04/2017 KURTIS DIEGO MD Ot I11.0 HYPERTENSIVE HEART DISEASE WITH HEART FA 12/04/2017 KURTIS DIEGO MD Ot I25.10 ATHSCL HEART DISEASE OF [place] CORONARY 12/04/2017 KURTIS DIEGO MD Ot I48.0 PAROXYSMAL ATRIAL FIBRILLATION 12/04/2017 KURTIS DIEGO MD Ot I50.32 CHRONIC DIASTOLIC (CONGESTIVE) HEART YAMILET 12/04/2017 KURTIS DIEGO MD Ot I65.23 OCCLUSION AND STENOSIS OF [place] 12/04/2017 KURTIS DIEGO MD Ot J18.9 PNEUMONIA, UNSPECIFIED ORGANISM 12/04/2017 KURTIS DIEGO MD Ot J30.2 OTHER SEASONAL ALLERGIC RHINITIS 12/04/2017 KURTIS DIEGO MD Ot M19.91 PRIMARY OSTEOARTHRITIS, UNSPECIFIED SITE 12/04/2017 KURTIS DIEGO MD Ot M54.9 DORSALGIA, UNSPECIFIED 12/04/2017 KURTIS DIEGO MD Ot N18.3 CHRONIC KIDNEY DISEASE, STAGE 3 (MODERAT 12/04/2017 KURTIS DIEGO MD Ot R04.2 HEMOPTYSIS 12/04/2017 KURTIS DIEGO MD Ot R06.03 ACUTE RESPIRATORY DISTRESS 12/04/2017 KURTIS DIEGO MD Ot Z6 6 DO NOT RESUSCITATE 12/04/2017 KURTIS DIEGO MD Ot Z79.01 TELEPHONE ADVICE NURSE (CURRENT) USE OF ANTICOAGULANT 12/04/2017 KURTIS DIEGO MD Ot Z79.84 SHELTER (CURRENT) USE OF ORAL HYPOGLYC 12/04/2017 KURTIS DIEGO MD Ot Z95.5 PRESENCE OF CORONARY ANGIOPLASTY IMPLANT 12/04/2017 KURTIS DIEGO MD Ot Z96.653 PRESENCE OF ARTIFICIAL KNEE JOINT, BILAT 12/05/2017 KURTIS DIEGO MD Ot A41.9 SEPSIS, UNSPECIFIED ORGANISM 12/05/2017 KURTIS DIEGO MD Ot D64.9 ANEMIA, UNSPECIFIED 12/05/2017 KURTIS DEIGO MD Ot E03.9 HYPOTHYROIDISM, UNSPECIFIED 12/05/2017 KURTIS DIEGO MD Ot E11.21 TYPE 2 DIABETES MELLITUS WITH DIABETIC N 12/05/2017 KURTIS DIEGO MD Ot 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 PERIPHERAL AN 12/05/2017 KURTIS DIEGO MD Ot E78.00 PURE HYPERCHOLESTEROLEMIA, UNSPECIFIED 12/05/2017 KURTIS DIEGO MD Ot E86.0 DEHYDRATION 12/05/2017 KURTIS DIEGO MD Ot F32.9 MAJOR DEPRESSIVE DISORDER, SINGLE EPISOD 12/05/2017 KURTIS DIEGO MD Ot F41.9 ANXIETY DISORDER, UNSPECIFIED 12/05/2017 KURTIS DIEGO MD Ot 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 12/05/2017 KURTIS DIEGO MD Ot I11.0 HYPERTENSIVE HEART DISEASE WITH HEART FA 12/05/2017 KURTIS DIEGO MD Ot I25.10 ATHSCL HEART DISEASE OF [place] CORONARY 12/05/2017 KURTIS IDEGO MD Ot I48.0 PAROXYSMAL ATRIAL FIBRILLATION 12/05/2017 KURTIS DIEGO MD Ot I50.32 CHRONIC DIASTOLIC (CONGESTIVE) HEART YAMILET 12/05/2017 KURTIS DIEGO MD Ot I65.23 OCCLUSION AND STENOSIS OF [place] 12/05/2017 KURTIS DIEGO MD Ot J18.9 PNEUMONIA, UNSPECIFIED ORGANISM 12/05/2017 KURTIS DIEGO MD Ot J30.2 OTHER SEASONAL ALLERGIC RHINITIS 12/05/2017 KURTIS DIEGO MD Ot M19.91 PRIMARY OSTEOARTHRITIS, UNSPECIFIED SITE 12/05/2017 KURTIS DIEGO MD Ot M54.9 DORSALGIA, UNSPECIFIED 12/05/2017 KURTIS DIEGO MD Ot N18.3 CHRONIC KIDNEY DISEASE, STAGE 3 (MODERAT 12/05/2017 KURTIS DIEGO MD Ot R04.2 HEMOPTYSIS 12/05/2017 KURTIS DIEGO MD Ot R06.03 ACUTE RESPIRATORY DISTRESS 12/05/2017 KURTIS DIEGO MD Ot Z6 6 DO NOT RESUSCITATE 12/05/2017 KURTIS DIEGO MD Ot Z79.01 TELEPHONE ADVICE NURSE (CURRENT) USE OF ANTICOAGULANT 12/05/2017 KURTIS DIEGO MD Ot Z79.84 TELEPHONE ADVICE NURSE (CURRENT) USE OF ORAL HYPOGLYC 12/05/2017 KURTIS DIEGO MD Ot Z95.5 PRESENCE OF CORONARY ANGIOPLASTY IMPLANT 12/05/2017 KURTIS DIEGO MD Ot Z96.653 PRESENCE OF ARTIFICIAL KNEE JOINT, BILAT 12/06/2017 KURTIS DIEGO MD Ot A41.9 SEPSIS, UNSPECIFIED ORGANISM 12/06/2017 KURTIS DIEGO MD Ot D64.9 ANEMIA, UNSPECIFIED 12/06/2017 KURTIS DIEGO MD Ot E03.9 HYPOTHYROIDISM, UNSPECIFIED 12/06/2017 KURTIS DIEGO MD Ot E11.21 TYPE 2 DIABETES MELLITUS WITH DIABETIC N 12/06/2017 KURTIS DIEGO MD Ot 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 PERIPHERAL AN 12/06/2017 KURTIS DIEGO MD Ot E78.00 PURE HYPERCHOLESTEROLEMIA, UNSPECIFIED 12/06/2017 KURTIS DIEGO MD Ot E86.0 DEHYDRATION 12/06/2017 KURTIS DIEGO MD Ot F32.9 MAJOR DEPRESSIVE DISORDER, SINGLE EPISOD 12/06/2017 KURTIS DIEGO MD Ot F41.9 ANXIETY DISORDER, UNSPECIFIED 12/06/2017 KURTIS DIEGO MD Ot 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 12/06/2017 KURTIS DIEGO MD Ot I11.0 HYPERTENSIVE HEART DISEASE WITH HEART FA 12/06/2017 KURTIS DIEGO MD Ot I25.10 ATHSCL HEART DISEASE OF [place] CORONARY 12/06/2017 KURTIS DIEGO MD Ot I48.0 PAROXYSMAL ATRIAL FIBRILLATION 12/06/2017 KURTIS DIEGO MD Ot I50.32 CHRONIC DIASTOLIC (CONGESTIVE) HEART YAMILET 12/06/2017 KURTIS DIEGO MD Ot I65.23 OCCLUSION AND STENOSIS OF [place] 12/06/2017 KURTIS DIEGO MD Ot J18.9 PNEUMONIA, UNSPECIFIED ORGANISM 12/06/2017 KURTIS DIEGO MD Ot J30.2 OTHER SEASONAL ALLERGIC RHINITIS 12/06/2017 KURTIS DIEGO MD Ot M19.91 PRIMARY OSTEOARTHRITIS, UNSPECIFIED SITE 12/06/2017 KURTIS DIEGO MD Ot M54.9 DORSALGIA, UNSPECIFIED 12/06/2017 KURTIS DIEGO MD Ot N18.3 CHRONIC KIDNEY DISEASE, STAGE 3 (MODERAT 12/06/2017 KURTIS DIEGO MD Ot R04.2 HEMOPTYSIS 12/06/2017 KURTIS DIEGO MD Ot R06.03 ACUTE RESPIRATORY DISTRESS 12/06/2017 KURTIS DIEGO MD Ot Z6 6 DO NOT RESUSCITATE 12/06/2017 KURTIS DIEGO MD Ot Z79.01 SHELTER (CURRENT) USE OF ANTICOAGULANT 12/06/2017 KURTIS DIEGO MD Ot Z79.84 SHELTER (CURRENT) USE OF ORAL HYPOGLYC 12/06/2017 KURTIS DIEGO MD Ot Z95.5 PRESENCE OF CORONARY ANGIOPLASTY IMPLANT 12/06/2017 KURTIS DIEGO MD Ot Z96.653 PRESENCE OF ARTIFICIAL KNEE JOINT, BILAT 12/07/2017 KURTIS DIEGO MD Ot A41.9 SEPSIS, UNSPECIFIED ORGANISM 12/07/2017 KURTIS DIEGO MD Ot D64.9 ANEMIA, UNSPECIFIED 12/07/2017 KURTIS DIEGO MD Ot E03.9 HYPOTHYROIDISM, UNSPECIFIED 12/07/2017 KURTIS DIEGO MD Ot E11.21 TYPE 2 DIABETES MELLITUS WITH DIABETIC N 12/07/2017 KURTIS DIEGO MD Ot 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 PERIPHERAL AN 12/07/2017 KURTIS DIEGO MD Ot E78.00 PURE HYPERCHOLESTEROLEMIA, UNSPECIFIED 12/07/2017 KURTIS DIEGO MD Ot E86.0 DEHYDRATION 12/07/2017 KURTIS DIEGO MD Ot F32.9 MAJOR DEPRESSIVE DISORDER, SINGLE EPISOD 12/07/2017 KURTIS DIEGO MD Ot F41.9 ANXIETY DISORDER, UNSPECIFIED 12/07/2017 KURTIS DIEGO MD Ot 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 12/07/2017 KURTIS DIEGO MD Ot I11.0 HYPERTENSIVE HEART DISEASE WITH HEART FA 12/07/2017 KURTIS DIEGO MD Ot I25.10 ATHSCL HEART DISEASE OF [place] CORONARY 12/07/2017 KURTIS DIEGO MD Ot I48.0 PAROXYSMAL ATRIAL FIBRILLATION 12/07/2017 KURTIS DIEGO MD, Ot I50.32 CHRONIC DIASTOLIC (CONGESTIVE) HEART YAMILET 12/07/2017 KURTIS DIEGO MD Ot I65.23 OCCLUSION AND STENOSIS OF [place] 12/07/2017 KURTIS DIEGO MD Ot J18.9 PNEUMONIA, UNSPECIFIED ORGANISM 12/07/2017 KURTIS DIEGO MD Ot J30.2 OTHER SEASONAL ALLERGIC RHINITIS 12/07/2017 KURTIS DIEGO MD Ot M19.91 PRIMARY OSTEOARTHRITIS, UNSPECIFIED SITE 12/07/2017 KURTIS DIEGO MD Ot M54.9 DORSALGIA, UNSPECIFIED 12/07/2017 KURTIS DIEGO MD Ot N18.3 CHRONIC KIDNEY DISEASE, STAGE 3 (MODERAT 12/07/2017 KURTIS DIEGO MD Ot R04.2 HEMOPTYSIS 12/07/2017 KURTIS DIEGO MD Ot R06.03 ACUTE RESPIRATORY DISTRESS 12/07/2017 KURTIS DIEGO MD Ot Z6 6 DO NOT RESUSCITATE 12/07/2017 KURTIS DIEGO MD Ot Z79.01 SHELTER (CURRENT) USE OF ANTICOAGULANT 12/07/2017 KURTIS DIEGO MD Ot Z79.84 SHELTER (CURRENT) USE OF ORAL HYPOGLYC 12/07/2017 KURTIS DIEGO MD Ot Z95.5 PRESENCE OF CORONARY ANGIOPLASTY IMPLANT 12/07/2017 KURTIS DIEGO MD Ot Z96.653 PRESENCE OF ARTIFICIAL KNEE JOINT, BILAT 12/08/2017 KURTIS DIEGO MD Ot A41.9 SEPSIS, UNSPECIFIED ORGANISM 12/08/2017 KURTIS DIEGO MD Ot D64.9 ANEMIA, UNSPECIFIED 12/08/2017 KURTIS DIEGO MD Ot E03.9 HYPOTHYROIDISM, UNSPECIFIED 12/08/2017 KURTIS DIEGO MD Ot E11.21 TYPE 2 DIABETES MELLITUS WITH DIABETIC N 12/08/2017 KURTIS DIEGO MD Ot 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 PERIPHERAL AN 12/08/2017 KURTIS DIEGO MD Ot E78.00 PURE HYPERCHOLESTEROLEMIA, UNSPECIFIED 12/08/2017 KURTIS DIEGO MD Ot E86.0 DEHYDRATION 12/08/2017 KURTIS DIEGO MD Ot F32.9 MAJOR DEPRESSIVE DISORDER, SINGLE EPISOD 12/08/2017 KURTIS DIEGO MD Ot F41.9 ANXIETY DISORDER, UNSPECIFIED 12/08/2017 KURTIS DIEGO MD Ot 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 12/08/2017 KURTIS DIEGO MD Ot I11.0 HYPERTENSIVE HEART DISEASE WITH HEART FA 12/08/2017 KURTIS DIEGO MD Ot I25.10 ATHSCL HEART DISEASE OF [place] CORONARY 12/08/2017 KURTIS DIEGO MD Ot I48.0 PAROXYSMAL ATRIAL FIBRILLATION 12/08/2017 KURTIS DIEGO MD Ot I50.32 CHRONIC DIASTOLIC (CONGESTIVE) HEART YAMILET 12/08/2017 KURTIS DIEGO MD Ot I65.23 OCCLUSION AND STENOSIS OF [place]ILATERAL [place] 12/08/2017 KURTIS DIEGO MD Ot J18.9 PNEUMONIA, UNSPECIFIED ORGANISM 12/08/2017 KURTIS DIEGO MD, Ot J30.2 OTHER SEASONAL ALLERGIC RHINITIS 12/08/2017 KURTIS DIEGO MD Ot M19.91 PRIMARY OSTEOARTHRITIS, UNSPECIFIED SITE 12/08/2017 KURTIS DIEGO MD Ot M54.9 DORSALGIA, UNSPECIFIED 12/08/2017 KURTIS DIEGO MD Ot N18.3 CHRONIC KIDNEY DISEASE, STAGE 3 (MODERAT 12/08/2017 KURTIS DIEGO MD Ot R04.2 HEMOPTYSIS 12/08/2017 KURTIS DIEGO MD Ot R06.03 ACUTE RESPIRATORY DISTRESS 12/08/2017 KURTIS DIEGO MD Ot Z6 6 DO NOT RESUSCITATE 12/08/2017 KURTIS DIEGO MD Ot Z79.01 TELEPHONE ADVICE NURSE (CURRENT) USE OF ANTICOAGULANT 12/08/2017 KURTIS DIEGO MD Ot Z79.84 SHELTER (CURRENT) USE OF ORAL HYPOGLYC 12/08/2017 KURTIS DIEGO MD Ot Z95.5 PRESENCE OF CORONARY ANGIOPLASTY IMPLANT 12/08/2017 KURTIS DIEGO MD Ot Z96.653 PRESENCE OF ARTIFICIAL KNEE JOINT, BILAT 12/08/2017 KURTIS DIEGO MD Ot A41.9 SEPSIS, UNSPECIFIED ORGANISM 12/08/2017 KURTIS DIEGO MD Ot D64.9 ANEMIA, UNSPECIFIED 12/08/2017 KURTIS DIEGO MD Ot E03.9 HYPOTHYROIDISM, UNSPECIFIED 12/08/2017 KURTIS DIEGO MD Ot E11.21 TYPE 2 DIABETES MELLITUS WITH DIABETIC N 12/08/2017 KURTIS DIEGO MD Ot 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 PERIPHERAL AN 12/08/2017 KURTIS DIEGO MD Ot E78.00 PURE HYPERCHOLESTEROLEMIA, UNSPECIFIED 12/08/2017 KURTIS DIEGO MD Ot E86.0 DEHYDRATION 12/08/2017 KURTIS DIEGO MD Ot F32.9 MAJOR DEPRESSIVE DISORDER, SINGLE EPISOD 12/08/2017 KURTIS DIEGO MD Ot F41.9 ANXIETY DISORDER, UNSPECIFIED 12/08/2017 KURTIS DIEGO MD Ot 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 12/08/2017 KURTIS DIEGO MD Ot I11.0 HYPERTENSIVE HEART DISEASE WITH HEART FA 12/08/2017 KUTRIS DIEGO MD Ot I25.10 ATHSCL HEART DISEASE OF [place] CORONARY 12/08/2017 KURTIS DIEGO MD Ot I48.0 PAROXYSMAL ATRIAL FIBRILLATION 12/08/2017 KURTIS DIEGO MD Ot I50.32 CHRONIC DIASTOLIC (CONGESTIVE) HEART YAMILET 12/08/2017 KURTIS DIEGO MD Ot I65.23 OCCLUSION AND STENOSIS OF [place]ILATERAL [place] 12/08/2017 KURTIS DIEGO MD Ot J18.9 PNEUMONIA, UNSPECIFIED ORGANISM 12/08/2017 KURTIS DIEGO MD Ot J30.2 OTHER SEASONAL ALLERGIC RHINITIS 12/08/2017 KURTIS DIEGO MD Ot M19.91 PRIMARY OSTEOARTHRITIS, UNSPECIFIED SITE 12/08/2017 KURTIS DIEGO MD Ot M54.9 DORSALGIA, UNSPECIFIED 12/08/2017 KURTIS DIEGO MD Ot N18.3 CHRONIC KIDNEY DISEASE, STAGE 3 (MODERAT 12/08/2017 KURTIS DIEGO MD Ot R04.2 HEMOPTYSIS 12/08/2017 KURTIS DIEGO MD Ot R06.03 ACUTE RESPIRATORY DISTRESS 12/08/2017 KURTIS DIEGO MD Ot Z6 6 DO NOT RESUSCITATE 12/08/2017 KURTIS DIEGO MD Ot Z79.01 SHELTER (CURRENT) USE OF ANTICOAGULANT 12/08/2017 KURTIS DIEGO MD Ot Z79.84 TELEPHONE ADVICE NURSE (CURRENT) USE OF ORAL HYPOGLYC 12/08/2017 KURTIS DIEGO MD Ot Z95.5 PRESENCE OF CORONARY ANGIOPLASTY IMPLANT 12/08/2017 KURTIS DIEGO MD, Ot Z96.653 PRESENCE OF ARTIFICIAL KNEE JOINT, BILAT 12/09/2017 KURTIS DIEGO MD Ot A41.9 SEPSIS, UNSPECIFIED ORGANISM 12/09/2017 KURTIS DIEGO MD Ot D64.9 ANEMIA, UNSPECIFIED 12/09/2017 KURTIS DIEGO MD Ot E03.9 HYPOTHYROIDISM, UNSPECIFIED 12/09/2017 KURTIS DIEGO MD Ot E11.21 TYPE 2 DIABETES MELLITUS WITH DIABETIC N 12/09/2017 KURTIS DIEGO MD Ot 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 PERIPHERAL AN 12/09/2017 KURTIS DIEGO MD Ot E78.00 PURE HYPERCHOLESTEROLEMIA, UNSPECIFIED 12/09/2017 KURTIS DIEGO MD Ot E86.0 DEHYDRATION 12/09/2017 KURTIS DIEGO MD Ot F32.9 MAJOR DEPRESSIVE DISORDER, SINGLE EPISOD 12/09/2017 KURTIS DIEGO MD Ot F41.9 ANXIETY DISORDER, UNSPECIFIED 12/09/2017 KURTIS DIEGO MD Ot 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 12/09/2017 KURTIS DIEGO MD Ot I11.0 HYPERTENSIVE HEART DISEASE WITH HEART FA 12/09/2017 KURTIS DIEGO MD Ot I25.10 ATHSCL HEART DISEASE OF [place] CORONARY 12/09/2017 KURTIS DIEGO MD Ot I48.0 PAROXYSMAL ATRIAL FIBRILLATION 12/09/2017 KURTIS DIEGO MD Ot I50.32 CHRONIC DIASTOLIC (CONGESTIVE) HEART [place]ILET 12/09/2017 KURTIS DIEGO MD Ot I65.23 OCCLUSION AND STENOSIS OF [place] 12/09/2017 KURTIS DIEGO MD Ot J18.9 PNEUMONIA, UNSPECIFIED ORGANISM 12/09/2017 KURTIS DIEGO MD Ot J30.2 OTHER SEASONAL ALLERGIC RHINITIS 12/09/2017 KURTIS DIEGO MD Ot M19.91 PRIMARY OSTEOARTHRITIS, UNSPECIFIED SITE 12/09/2017 KURTIS DIEGO MD Ot M54.9 DORSALGIA, UNSPECIFIED 12/09/2017 KURTIS DIEGO MD Ot N18.3 CHRONIC KIDNEY DISEASE, STAGE 3 (MODERAT 12/09/2017 KURTIS DIEGO MD Ot R04.2 HEMOPTYSIS 12/09/2017 KURTIS DIEGO MD Ot R06.03 ACUTE RESPIRATORY DISTRESS 12/09/2017 KURTIS DIEGO MD Ot Z6 6 DO NOT RESUSCITATE 12/09/2017 KURTIS DIEGO MD Ot Z79.01 SHELTER (CURRENT) USE OF ANTICOAGULANT 12/09/2017 KURTIS DIEGO MD Ot Z79.84 SHELTER (CURRENT) USE OF ORAL HYPOGLYC 12/09/2017 KURTIS DIEGO MD Ot Z95.5 PRESENCE OF CORONARY ANGIOPLASTY IMPLANT 12/09/2017 KURTIS DIEGO MD Ot Z96.653 PRESENCE OF ARTIFICIAL KNEE JOINT, BILAT 12/09/2017 KURTIS DIEGO MD Ot A41.9 SEPSIS, UNSPECIFIED ORGANISM 12/09/2017 KURTIS DIEGO MD Ot B96.1 [place] PNEUMONIAE THE CAUSE OF DI 12/09/2017 KURTIS DIEGO MD Ot D64.9 ANEMIA, UNSPECIFIED 12/09/2017 KURTIS DIEGO MD Ot E03.9 HYPOTHYROIDISM, UNSPECIFIED 12/09/2017 KURTIS DIEGO MD Ot E11.21 TYPE 2 DIABETES MELLITUS WITH DIABETIC N 12/09/2017 KURTIS DIEGO MD Ot 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 PERIPHERAL AN 12/09/2017 KURTIS DIEGO MD Ot E78.00 PURE HYPERCHOLESTEROLEMIA, UNSPECIFIED 12/09/2017 KURTIS DIEGO MD Ot E86.0 DEHYDRATION 12/09/2017 KURTIS DIEGO MD Ot F32.9 MAJOR DEPRESSIVE DISORDER, SINGLE EPISOD 12/09/2017 KURTIS DIEGO MD Ot F41.9 ANXIETY DISORDER, UNSPECIFIED 12/09/2017 KURTIS DIEGO MD Ot 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 12/09/2017 KURTIS DIEGO MD Ot I11.0 HYPERTENSIVE HEART DISEASE WITH HEART FA 12/09/2017 KURTIS DIEGO MD Ot 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 FAIL AND ST 12/09/2017 KURTIS DIEGO MD Ot I25.10 ATHSCL HEART DISEASE OF [place] CORONARY 12/09/2017 KURTIS DIEGO MD Ot I48.0 PAROXYSMAL ATRIAL FIBRILLATION 12/09/2017 KURTIS DIEGO MD Ot I50.32 CHRONIC DIASTOLIC (CONGESTIVE) HEART YAMILET 12/09/2017 KURTIS DIEGO MD Ot I65.23 OCCLUSION AND STENOSIS OF BILATERAL [place] 12/09/2017 KURTIS DIEGO MD Ot J18.9 PNEUMONIA, UNSPECIFIED ORGANISM 12/09/2017 KURTIS DIEGO MD Ot J30.2 OTHER SEASONAL ALLERGIC RHINITIS 12/09/2017 KURTIS DIEGO MD Ot J96.00 ACUTE RESPIRATORY FAILURE, UNSP W HYPOXI 12/09/2017 KURTIS DIEGO MD Ot J98.11 ATELECTASIS 12/09/2017 KURTIS DIEGO MD Ot K21.0 GASTRO-ESOPHAGEAL REFLUX DISEASE WITH ES 12/09/2017 KURTIS DIEGO MD Ot K29.70 GASTRITIS, UNSPECIFIED, WITHOUT BLEEDING 12/09/2017 KURTIS DIEGO MD Ot M19.91 PRIMARY OSTEOARTHRITIS, UNSPECIFIED SITE 12/09/2017 KURTIS DIEGO MD Ot M54.9 DORSALGIA, UNSPECIFIED 12/09/2017 KURTIS DIEGO MD Ot N17.9 ACUTE KIDNEY FAILURE, UNSPECIFIED 12/09/2017 KURTIS DIEGO MD Ot N18.3 CHRONIC KIDNEY DISEASE, STAGE 3 (MODERAT 12/09/2017 KURTIS DIEGO MD Ot N39.0 URINARY TRACT INFECTION, SITE NOT SPECIF 12/09/2017 KURTIS DIEGO MD Ot R04.2 HEMOPTYSIS 12/09/2017 KURTIS DIEGO MD Ot R06.03 ACUTE RESPIRATORY DISTRESS 12/09/2017 KURTIS DIEGO MD Ot T50.1X5A ADVERSE EFFECT OF LOOP DIURETICS, INITIA 12/09/2017 KURTIS DIEGO MD Ot Z6 6 DO NOT RESUSCITATE 12/09/2017 KURTIS DIEGO MD Ot Z79.01 SHELTER (CURRENT) USE OF ANTICOAGULANT 12/09/2017 KURTIS DIEGO MD Ot Z79.84 SHELTER (CURRENT) USE OF ORAL HYPOGLYC 12/09/2017 KURTIS DIEGO MD Ot Z95.5 PRESENCE OF CORONARY ANGIOPLASTY IMPLANT 12/09/2017 KURTIS DIEGO MD Ot Z96.653 PRESENCE OF ARTIFICIAL KNEE JOINT, BILAT 12/09/2017 SAFIA LEMUS, HENRY Camarena Ot V76.12 OTH SCREEN MAMMO-MALIGN NEOPLASM OF JOSE 12/09/2017 Ot 785.2 CARD IAC MURMURS NEC 12/09/2017 JOHN BAEZC, ALI FACP CCDS Ot 250.00 DIAB FAIZAN WO COMPL, TYPE II OR UNSPEC TY 12/09/2017 JOHN LEMUS FACC, ALI FACP CCDS Ot 424.1 AORTIC VALVE DISORDER 12/09/2017 JOHN LEMUS FACC, ALI FACP CCDS Ot 729.5 PAIN IN LIMB 12/09/2017 OJHN LEMUS FACC, ALI FACP CCDS Ot 786.09 RESPIRATORY ABNORM NEC 12/09/2017 JOHN LEMUS FACC, ALI FACP CCDS Ot 786.59 CHEST PAIN NEC 12/09/2017 JOHN LEMUS FACC, ALI FACP CCDS Ot 250.00 DIAB FAIZAN WO COMPL, TYPE II OR UNSPEC TY 12/09/2017 JOHN LEMUS FACC, ALI FACP CCDS Ot 424.1 AORTIC VALVE DISORDER 12/09/2017 JOHN LEMUS FACDoc, ALI FACP CCDS Ot 729.5 PAIN IN LIMB 12/09/2017 JOHN LEMUS FACC, ALI FACP CCDS Ot 786.09 RESPIRATORY ABNORM NEC 12/09/2017 JOHN LEMUS FACC, ALI FACP CCDS Ot 786.50 CHEST PAIN NOS 12/09/2017 JOHN LEMUS FACC, ALI FACP CCDS Ot V58.69 OT MED,LT,CURRENT USE 12/09/2017 GALE MENDEZ MD Ot 724.4 LUMBOSACRAL NEURITIS NOS 12/09/2017 GALE MENDEZ MD Ot 722.1 0 LUMBAR DISC DISPLACEMENT 12/09/2017 GALE MENDEZ MD Ot 722.5 2 LUMB/LUMBOSAC DISC DEGEN 12/09/2017 JOHN LEMUS FACC, DEMARIO FACP CCDS Ot I35.0 NONRHEUMATIC AORTIC (VALVE) STENOSIS 12/09/2017 JOHN LEMUS FACC, ALI FACP CCDS Ot I65.23 OCCLUSION AND STENOSIS OF [place]ILATERAL [place] 12/09/2017 JOHN LEMUS FACC, ALI FACP CCDS Ot R42 DIZZINESS AND GIDDINESS 12/09/2017 EVERARDO LEMUS, THOMAS Carvalho Ot I65.23 OCCLUSION AND STENOSIS OF [place]ILATERAL [place] 12/09/2017 VINEET DASILVA PRODUCTION UNDERWRITER Ot I35.0 NONRHEUMATIC AORTIC (VALVE) STENOSIS 12/09/2017 KIRAN LEMUS, LAITH Bae Ot M47.816 SPONDYLOSIS W/O MYELOPATHY OR RADICULOPA 12/09/2017 LAITH BECK MD Ot M51. 16 INTERVERTEBRAL DISC DISORDERS W RADICULO 12/09/2017 LAITH BECK MD Ot Z79.899 OTHER SHELTER (CURRENT) DRUG THERAPY 12/09/2017 OPAL BLUE ISABEL Ot E11.9 TYPE 2 DIABETES MELLITUS WITHOUT COMPLIC 12/09/2017 LAITH BECK MD Ot M51. 16 INTERVERTEBRAL DISC DISORDERS W RADICULO 12/09/2017 LAITH BECK MD Ot Z79. 84 TELEPHONE ADVICE NURSE (CURRENT) USE OF ORAL HYPOGLYC 12/09/2017 LAITH BECK MD Ot Z79.899 OTHER SHELTER (CURRENT) DRUG THERAPY 12/09/2017 JOHN LEMUS FACC, ALI FACP CCDS Ot E13.9 OTHER SPECIFIED DIABETES MELLITUS WITHOU 12/09/2017 JOHN LEMUS FACC, ALI FACP CCDS Ot I35.0 NONRHEUMATIC AORTIC (VALVE) STENOSIS 12/09/2017 JOHN LEMUS FACC, ALI FACP CCDS Ot I65.23 OCCLUSION AND STENOSIS OF BILATERAL [place] 12/09/2017 JOHN BAEZC, ALI FACP CCDS Ot N18.3 CHRONIC KIDNEY DISEASE, STAGE 3 (MODERAT 12/09/2017 JOHN LEMUS FACC, ALI FACP CCDS Ot R06.09 OTHER FORMS OF DYSPNEA 12/09/2017 JOHN LEMUS FACC, ALI FACP CCDS Ot E13.9 OTHER SPECIFIED DIABETES MELLITUS WITHOU 12/09/2017 JOHN LEMUS FACC, ALI FACP CCDS Ot I35.0 NONRHEUMATIC AORTIC (VALVE) STENOSIS 12/09/2017 JOHN LEMUS FACC, ALI FACP CCDS Ot I65.23 OCCLUSION AND STENOSIS OF [place]ILATERAL [place] 12/09/2017 JOHN LEMUS FACC, ALI FACP CCDS Ot N18.3 CHRONIC KIDNEY DISEASE, STAGE 3 (MODERAT 12/09/2017 JOHN LEMUS FACC, ALI FACP CCDS Ot R06.09 OTHER FORMS OF DYSPNEA 12/09/2017 TANA OVIEDO MD Ot Z48.812 ENCNTR FOR SURGICAL AFTCR FOLLOWING SURG 12/09/2017 TANA OVIEDO MD Ot Z95.5 PRESENCE OF CORONARY ANGIOPLASTY IMPLANT 12/09/2017 BRANDIE LEMUS, KURTIS Phillips Ot A41.9 SEPSIS, UNSPECIFIED ORGANISM 12/09/2017 KURTIS DIEGO MD Ot D64.9 ANEMIA, UNSPECIFIED 12/09/2017 KURTIS DIEGO MD Ot E03.9 HYPOTHYROIDISM, UNSPECIFIED 12/09/2017 KURTIS DIEGO MD Ot E11.21 TYPE 2 DIABETES MELLITUS WITH DIABETIC N 12/09/2017 KURTIS DIEGO MD Ot 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 PERIPHERAL AN 12/09/2017 KURTIS DIEGO MD Ot E78.00 PURE HYPERCHOLESTEROLEMIA, UNSPECIFIED 12/09/2017 KURTIS DIEGO MD Ot E86.0 DEHYDRATION 12/09/2017 KURTIS DIEGO MD Ot F32.9 MAJOR DEPRESSIVE DISORDER, SINGLE EPISOD 12/09/2017 KURTIS DIEGO MD Ot F41.9 ANXIETY DISORDER, UNSPECIFIED 12/09/2017 KURTIS DIEGO MD Ot 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 12/09/2017 KURTIS DIEGO MD Ot I11.0 HYPERTENSIVE HEART DISEASE WITH HEART FA 12/09/2017 KURTIS DIEGO MD Ot I25.10 ATHSCL HEART DISEASE OF [place] CORONARY 12/09/2017 KURTIS DIEGO MD Ot I48.0 PAROXYSMAL ATRIAL FIBRILLATION 12/09/2017 KURTIS DIEGO MD Ot I50.32 CHRONIC DIASTOLIC (CONGESTIVE) HEART YAMILET 12/09/2017 KURTIS DIEGO MD Ot I65.23 OCCLUSION AND STENOSIS OF [place] 12/09/2017 KURTIS DIEGO MD Ot J18.9 PNEUMONIA, UNSPECIFIED ORGANISM 12/09/2017 KURTIS DIEGO MD Ot J30.2 OTHER SEASONAL ALLERGIC RHINITIS 12/09/2017 KURTIS DIEGO MD Ot M19.91 PRIMARY OSTEOARTHRITIS, UNSPECIFIED SITE 12/09/2017 KURTIS DIEGO MD Ot M54.9 DORSALGIA, UNSPECIFIED 12/09/2017 KURTIS DIEGO MD Ot N18.3 CHRONIC KIDNEY DISEASE, STAGE 3 (MODERAT 12/09/2017 KURTIS DIEGO MD Ot R04.2 HEMOPTYSIS 12/09/2017 KURTIS DIEGO MD Ot R06.03 ACUTE RESPIRATORY DISTRESS 12/09/2017 KURTIS DIEGO MD Ot Z6 6 DO NOT RESUSCITATE 12/09/2017 KURTIS DIEGO MD, Ot Z79.01 TELEPHONE ADVICE NURSE (CURRENT) USE OF ANTICOAGULANT 12/09/2017 KURTIS DIEGO MD Ot Z79.84 SHELTER (CURRENT) USE OF ORAL HYPOGLYC 12/09/2017 KURTIS DIEGO MD Ot Z95.5 PRESENCE OF CORONARY ANGIOPLASTY IMPLANT 12/09/2017 KURTIS DIEGO MD Ot Z96.653 PRESENCE OF ARTIFICIAL KNEE JOINT, BILAT 12/21/2017 JENN NORRIS MD E Ot D64.9 ANEMIA, UNSPECIFIED 12/21/2017 JENN NORRIS MD E Ot E03.9 HYPOTHYROIDISM, UNSPECIFIED 12/21/2017 JENN NORRIS MD E Ot E11.2 1 TYPE 2 DIABETES MELLITUS WITH DIABETIC N 12/21/2017 JENN NORRIS MD Ot E11.5 1 TYPE 2 DIABETES W DIABETIC PERIPHERAL AN 12/21/2017 JENN NORRIS MD E Ot E78.0 0 PURE HYPERCHOLESTEROLEMIA, UNSPECIFIED 12/21/2017 JENN NORRIS MD E Ot E78.5 HYPERLIPIDEMIA, UNSPECIFIED 12/21/2017 RONI NORRIS MDIC E Ot E83.4 2 HYPOMAGNESEMIA 12/21/2017 MYRNA LEMUS JENN E Ot E87.6 HYPOKALEMIA 12/21/2017 JENN NORRIS MD E Ot F32.9 MAJOR DEPRESSIVE DISORDER, SINGLE EPISOD 12/21/2017 RONI NORRIS MDIC E Ot F41.9 ANXIETY DISORDER, UNSPECIFIED 12/21/2017 RONI NORRIS MDIC E Ot G72.8 1 CRITICAL ILLNESS MYOPATHY 12/21/2017 JENN NORRIS MD E Ot 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 12/21/2017 JENN NORRIS MD Ot 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 FAIL AND ST 12/21/2017 JENN NORRIS MD E Ot I25.1 0 ATHSCL HEART DISEASE OF [place] CORONARY 12/21/2017 JENN NORRIS MD Ot I25.5 ISCHEMIC CARDIOMYOPATHY 12/21/2017 JENN NORRIS MD Ot I48.0 PAROXYSMAL ATRIAL FIBRILLATION 12/21/2017 JENN NORRIS MD E Ot I50.3 2 CHRONIC DIASTOLIC (CONGESTIVE) HEART YAMILET 12/21/2017 JENN NORRIS MD E Ot J18.9 PNEUMONIA, UNSPECIFIED ORGANISM 12/21/2017 JENN NORRIS MD E Ot J98.1 1 ATELECTASIS 12/21/2017 JENN NORRIS MD Ot K21.0 GASTRO-ESOPHAGEAL REFLUX DISEASE WITH ES 12/21/2017 JENN NORRIS MD Ot K44.9 DIAPHRAGMATIC HERNIA WITHOUT OBSTRUCTION 12/21/2017 JENN NORRIS MD Ot M54.9 DORSALGIA, UNSPECIFIED 12/21/2017 JENN NORRIS MD Ot N17.9 ACUTE KIDNEY FAILURE, UNSPECIFIED 12/21/2017 JENN NORRIS MD Ot N18.3 CHRONIC KIDNEY DISEASE, STAGE 3 (MODERAT 12/21/2017 JENN NORRIS MD Ot N39.0 URINARY TRACT INFECTION, SITE NOT SPECIF 12/21/2017 JENN NORRIS MD Ot R04.2 HEMOPTYSIS 12/21/2017 JENN NORRIS MD Ot S00.83XA CONTUSION OF OTHER PART OF HEAD, INITIAL 12/21/2017 JENN NORRIS MD Ot W18.11XA FALL FROM OR OFF TOILET W/O STRIKE AGAIN 12/21/2017 JENN NRORIS MD Ot Z79.4 SHELTER (CURRENT) USE OF INSULIN 12/21/2017 JENN NORRIS MD Ot Z95.5 PRESENCE OF CORONARY ANGIOPLASTY IMPLANT 02/25/2018 RANDY MORRISONP Ot S32.030A WEDGE COMPRESSION FRACTURE OF THIRD LUMB 03/02/2018 RANDY MORRISONP Ot S32.030A WEDGE COMPRESSION FRACTURE OF THIRD LUMB 03/03/2018 RANDY MORRISONP Ot 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 03/03/2018 RANDY MORRISONP Ot M46.87 OTH INFLAMMATORY SPONDYLOPATHIES, LUMBOS 03/03/2018 RANDY MORRISONP Ot M47.816 SPONDYLOSIS W/O MYELOPATHY OR RADICULOPA 03/03/2018 RANDY MORRISONP Ot M48.07 SPINAL STENOSIS, LUMBOSACRAL REGION 03/03/2018 RANDY MORRISONP Ot M51.27 OTHER INTERVERTEBRAL DISC DISPLACEMENT, 03/03/2018 RANDY MORRISONP Ot M51.36 OTHER INTERVERTEBRAL DISC DEGENERATION, 03/08/2018 RANDY MORRISONP Ot 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 03/08/2018 MORRISON, RANDY M PRODUCTION UNDERWRITER Ot M46.87 OTH INFLAMMATORY SPONDYLOPATHIES, LUMBOS 03/08/2018 TAMIKO RANDY Camarena PRODUCTION UNDERWRITER Ot M47.816 SPONDYLOSIS W/O MYELOPATHY OR RADICULOPA 03/08/2018 TAMIKO RANDY M PRODUCTION UNDERWRITER Ot M48.07 SPINAL STENOSIS, LUMBOSACRAL REGION 03/08/2018 TAMIKO RANDY Migue PRODUCTION UNDERWRITER Ot M51.27 OTHER INTERVERTEBRAL DISC DISPLACEMENT, 03/08/2018 TAMIKO RANDY M PRODUCTION UNDERWRITER Ot M51.36 OTHER INTERVERTEBRAL DISC DEGENERATION, 03/17/2018 TAMIKO RANDY Migue PRODUCTION UNDERWRITER Ot S32.030A WEDGE COMPRESSION FRACTURE OF THIRD LUMB 03/23/2018 RANDY MORRISON PRODUCTION UNDERWRITER Ot 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 03/23/2018 TAMIKO RANDY M PRODUCTION UNDERWRITER Ot M46.87 OTH INFLAMMATORY SPONDYLOPATHIES, LUMBOS 03/23/2018 TAMIKO RANDY M PRODUCTION UNDERWRITER Ot M47.816 SPONDYLOSIS W/O MYELOPATHY OR RADICULOPA 03/23/2018 RANDY MORRISON PRODUCTION UNDERWRITER Ot M48.07 SPINAL STENOSIS, LUMBOSACRAL REGION 03/23/2018 TAMIKO RANDY M PRODUCTION UNDERWRITER Ot M51.27 OTHER INTERVERTEBRAL DISC DISPLACEMENT, 03/23/2018 TAMIKO RANDY M PRODUCTION UNDERWRITER Ot M51.36 OTHER INTERVERTEBRAL DISC DEGENERATION, 03/29/2018 BRANDIE LEMUS, KURTIS Phillips Ot K80.20 CALCULUS OF GALLBLADDER W/O CHOLECYSTITI 03/29/2018 ELSLEE LEMUS, RAJEEV Camarena Ot Z01.818 ENCOUNTER FOR OTHER PREPROCEDURAL EXAMIN 03/30/2018 LESLEE LEMUS, RAJEEV Camarena Ot Z01.818 ENCOUNTER FOR OTHER PREPROCEDURAL EXAMIN 03/30/2018 LESLEE LEMUS, RAJEEV Camarena Ot 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 PERIPHERAL AN 03/30/2018 LESLEE LEMUS, RAJEEV Camarena Ot E78.00 PURE HYPERCHOLESTEROLEMIA, UNSPECIFIED 03/30/2018 LESLEE LEMUS, RAJEEV Camarena Ot F32.9 MAJOR DEPRESSIVE DISORDER, SINGLE EPISOD 03/30/2018 LESLEE LEMUS, RAJEEV Camarena Ot F41.9 ANXIETY DISORDER, UNSPECIFIED 03/30/2018 LESLEE LEMUS, RAJEEV Camarena Ot G47.33 OBSTRUCTIVE SLEEP APNEA (ADULT) (PEDIATR 03/30/2018 RAJEEV CAMILO MD Ot I1 0 ESSENTIAL (PRIMARY) HYPERTENSION 03/30/2018 RAJEEV CAMILO MD Ot I25.10 ATHSCL HEART DISEASE OF [place] CORONARY 03/30/2018 RAJEEV CAMILO MD Ot I65.29 OCCLUSION AND STENOSIS OF UNSPECIFIED CA 03/30/2018 RAJEEV CAMILO MD Ot K21.9 GASTRO-ESOPHAGEAL REFLUX DISEASE WITHOUT 03/30/2018 RAJEEV CAMILO MD Ot K44.9 DIAPHRAGMATIC HERNIA WITHOUT OBSTRUCTION 03/30/2018 RAJEEV CAMILO MD Ot K80.10 CALCULUS OF GALLBLADDER W CHRONIC CHOLEC 03/30/2018 RAJEEV CAMILO MD, Ot M06.9 RHEUMATOID ARTHRITIS, UNSPECIFIED 03/30/2018 RAJEEV CAMILO MD Ot Z79.01 TELEPHONE ADVICE NURSE (CURRENT) USE OF ANTICOAGULANT 03/30/2018 RAJEEV CAMILO MD Ot Z79.82 SHELTER (CURRENT) USE OF ASPIRIN 03/30/2018 RAJEEV CAMILO MD Ot Z79.84 TELEPHONE ADVICE NURSE (CURRENT) USE OF ORAL HYPOGLYC 03/30/2018 RAJEEV CAMILO MD Ot Z79.899 OTHER SHELTER (CURRENT) DRUG THERAPY 03/30/2018 RAJEEV CAMILO MD Ot Z95.5 PRESENCE OF CORONARY ANGIOPLASTY IMPLANT 03/30/2018 RAJEEV CAMILO MD Ot Z96.653 PRESENCE OF ARTIFICIAL KNEE JOINT, BILAT 03/31/2018 RANDY MORRISON Ot S32.030A WEDGE COMPRESSION FRACTURE OF THIRD LUMB 04/03/2018 BRANDIE LEMUS, KURTIS Phillips Ot K80.20 CALCULUS OF GALLBLADDER W/O CHOLECYSTITI 04/04/2018 RAJEEV CAMILO MD Ot 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 PERIPHERAL AN 04/04/2018 RAJEEV CAMILO MD Ot E78.00 PURE HYPERCHOLESTEROLEMIA, UNSPECIFIED 04/04/2018 RAJEEV CAMILO MD Ot F32.9 MAJOR DEPRESSIVE DISORDER, SINGLE EPISOD 04/04/2018 RAJEEV CAMILO MD Ot F41.9 ANXIETY DISORDER, UNSPECIFIED 04/04/2018 RAJEEV CAMILO MD Ot G47.33 OBSTRUCTIVE SLEEP APNEA (ADULT) (PEDIATR 04/04/2018 RAJEEV CAMILO MD Ot I1 0 ESSENTIAL (PRIMARY) HYPERTENSION 04/04/2018 RAJEEV CAMILO MD Ot I25.10 ATHSCL HEART DISEASE OF [place] CORONARY 04/04/2018 LESLEE LEMUS, RAJEEV Camarena Ot I65.29 OCCLUSION AND STENOSIS OF UNSPECIFIED CA 04/04/2018 RAJEEV CAMILO MD Ot K21.9 GASTRO-ESOPHAGEAL REFLUX DISEASE WITHOUT 04/04/2018 RAJEEV CAMILO MD Ot K44.9 DIAPHRAGMATIC HERNIA WITHOUT OBSTRUCTION 04/04/2018 RAJEEV CAMILO MD Ot K80.10 CALCULUS OF GALLBLADDER W CHRONIC CHOLEC 04/04/2018 RAJEEV CAMILO MD Ot M06.9 RHEUMATOID ARTHRITIS, UNSPECIFIED 04/04/2018 RAJEEV CAMILO MD Ot Z79.82 SHELTER (CURRENT) USE OF ASPIRIN 04/04/2018 RAJEEV CAMILO MD Ot Z79.84 SHELTER (CURRENT) USE OF ORAL HYPOGLYC 04/04/2018 RAJEEV CAMILO MD Ot Z79.899 OTHER SHELTER (CURRENT) DRUG THERAPY 04/04/2018 RAJEEV CAMILO MD Ot Z95.5 PRESENCE OF CORONARY ANGIOPLASTY IMPLANT 04/04/2018 RAJEEV CAMILO MD Ot Z96.653 PRESENCE OF ARTIFICIAL KNEE JOINT, BILAT 04/14/2018 RAJEEV CAMILO MD Ot R10.11 RIGHT UPPER QUADRANT PAIN 04/14/2018 RAJEEV CAMILO MD Ot R11.0 NAUSEA 04/14/2018 RAJEEV CAMILO MD Ot Z98.890 OTHER SPECIFIED POSTPROCEDURAL STATES 04/14/2018 RANDY MORRISON Ot 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 04/14/2018 RANDY MORRISON Ot M46.87 OTH INFLAMMATORY SPONDYLOPATHIES, LUMBOS 04/14/2018 RANDY MORRISONP Ot M47.816 SPONDYLOSIS W/O MYELOPATHY OR RADICULOPA 04/14/2018 RANDY MORRISONP Ot M48.07 SPINAL STENOSIS, LUMBOSACRAL REGION 04/14/2018 RANDY MORRISONP Ot M51.27 OTHER INTERVERTEBRAL DISC DISPLACEMENT, 04/14/2018 RANDY MORRISONP Ot M51.36 OTHER INTERVERTEBRAL DISC DEGENERATION, 04/19/2018 BRANDIE LEMUS, KURTIS Phillips Ot K80.20 CALCULUS OF GALLBLADDER W/O CHOLECYSTITI 05/04/2018 SU, OPAL M ERP PROJECT MANAGER Ot K57.30 DVRTCLOS OF LG INT W/O PERFORATION OR AB 05/04/2018 OPAL BLUE APRN Ot K63.89 OTHER SPECIFIED DISEASES OF INTESTINE 05/04/2018 OPAL BLUE APRN Ot K76.0 FATTY (CHANGE OF) LIVER, NOT ELSEWHERE C 05/04/2018 OPAL BLUE APRN Ot K85.90 ACUTE PANCREATITIS WITHOUT NECROSIS OR I 05/04/2018 OPAL BLUE APRN Ot N94.89 OTH COND ASSOC W FEMALE GENITAL ORGANS A 05/04/2018 LESLEE LEMUS, RAJEEV Camarena Ot R10.11 RIGHT UPPER QUADRANT PAIN 05/04/2018 LESLEE LEMUS, RAJEEV Camarena Ot R11.0 NAUSEA 05/04/2018 LESLEE LEMUS, RAJEEV Camarena Ot Z98.890 OTHER SPECIFIED POSTPROCEDURAL STATES 05/05/2018 BRANDIE LEMUS, KURTIS Phillips Ot K80.20 CALCULUS OF GALLBLADDER W/O CHOLECYSTITI 05/27/2018 OPAL BLUE APRN Ot K57.30 DVRTCLOS OF LG INT W/O PERFORATION OR AB 05/27/2018 OPAL BLUE APRN Ot K63.89 OTHER SPECIFIED DISEASES OF INTESTINE 05/27/2018 OPAL BLUE APRN Ot K76.0 FATTY (CHANGE OF) LIVER, NOT ELSEWHERE C 05/27/2018 OPAL BLUE APRN Ot K85.90 ACUTE PANCREATITIS WITHOUT NECROSIS OR I 05/27/2018 OPAL BLUE APRN Ot N94.89 OTH COND ASSOC W FEMALE GENITAL ORGANS A 06/07/2018 ALLEN ADAMES J T Ot N83.209 UNSPECIFIED OVARIAN CYST, UNSPECIFIED SI 06/07/2018 ALLEN ADAMES J T Ot Z12.31 ENCNTR SCREEN MAMMOGRAM FOR MALIGNANT NE 06/09/2018 OPAL BLUE APRN Ot K57.30 DVRTCLOS OF LG INT W/O PERFORATION OR AB 06/09/2018 OPAL BLUE APRN Ot K63.89 OTHER SPECIFIED DISEASES OF INTESTINE 06/09/2018 OPAL BLUE APRN Ot K76.0 FATTY (CHANGE OF) LIVER, NOT ELSEWHERE C 06/09/2018 OPAL BLUE APRN Ot K85.90 ACUTE PANCREATITIS WITHOUT NECROSIS OR I 06/09/2018 OPAL BLUE APRN Ot N94.89 OTH COND ASSOC W FEMALE GENITAL ORGANS A 06/29/2018 SAFIA LEMUS, HENRY Camarena Ot V76.12 OTH SCREEN MAMMO-MALIGN NEOPLASM OF JOSE 06/29/2018 Ot 785.2 CARD IAC MURMURS NEC 06/29/2018 JOHN BAEZC, ALI FACP CCDS Ot 250.00 DIAB FAIZAN WO COMPL, TYPE II OR UNSPEC TY 06/29/2018 JOHN LEMUS FACC, ALI FACP CCDS Ot 424.1 AORTIC VALVE DISORDER 06/29/2018 JOHN BAEZC, ALI FACP CCDS Ot 729.5 PAIN IN LIMB 06/29/2018 JOHN BAEZC, ALI FACP CCDS Ot 786.09 RESPIRATORY ABNORM NEC 06/29/2018 JOHN LEMUS FACC, ALI FACP CCDS Ot 786.59 CHEST PAIN NEC 06/29/2018 JOHN LEMUS FACC, ALI FACP CCDS Ot 250.00 DIAB FAIZAN WO COMPL, TYPE II OR UNSPEC TY 06/29/2018 JOHN LEMUS FACC, ALI FACP CCDS Ot 424.1 AORTIC VALVE DISORDER 06/29/2018 JOHN LEMUS FACC, ALI FACP CCDS Ot 729.5 PAIN IN LIMB 06/29/2018 JOHN LEMUS FACC, ALI FACP CCDS Ot 786.09 RESPIRATORY ABNORM NEC 06/29/2018 JOHN LEMUS FACC, ALI FACP CCDS Ot 786.50 CHEST PAIN NOS 06/29/2018 JOHN LEMUS FACC, ALI FACP CCDS Ot V58.69 OT MED,LT,CURRENT USE 06/29/2018 GALE MENDEZ MD Ot 724.4 LUMBOSACRAL NEURITIS NOS 06/29/2018 GALE MENDEZ MD Ot 722.1 0 LUMBAR DISC DISPLACEMENT 06/29/2018 GALE MENDEZ MD Ot 722.5 2 LUMB/LUMBOSAC DISC DEGEN 06/29/2018 JOHN LEMUS FACC, ALI FACP CCDS Ot I35.0 NONRHEUMATIC AORTIC (VALVE) STENOSIS 06/29/2018 JOHN LEMUS FACC, ALI FACP CCDS Ot I65.23 OCCLUSION AND STENOSIS OF BILATERAL [place] 06/29/2018 JOHN LEMUS FACC, ALI FACP CCDS Ot R42 DIZZINESS AND GIDDINESS 06/29/2018 THOMAS MCGEE MD Ot I65.23 OCCLUSION AND STENOSIS OF BILATERAL [place] 06/29/2018 VINEET DASILVA PRODUCTION UNDERWRITER Ot I35.0 NONRHEUMATIC AORTIC (VALVE) STENOSIS 06/29/2018 LAITH BECK MD Ot M47.816 SPONDYLOSIS W/O MYELOPATHY OR RADICULOPA 06/29/2018 LAITH BECK MD Ot M51. 16 INTERVERTEBRAL DISC DISORDERS W RADICULO 06/29/2018 LAITH BECK MD Ot Z79.899 OTHER TELEPHONE ADVICE NURSE (CURRENT) DRUG THERAPY 06/29/2018 OPAL BLUE APRN Ot E11.9 TYPE 2 DIABETES MELLITUS WITHOUT COMPLIC 06/29/2018 LAITH BECK MD Ot M51. 16 INTERVERTEBRAL DISC DISORDERS W RADICULO 06/29/2018 LAITH BECK MD Ot Z79. 84 TELEPHONE ADVICE NURSE (CURRENT) USE OF ORAL HYPOGLYC 06/29/2018 LAITH BECK MD Ot Z79.899 OTHER SHELTER (CURRENT) DRUG THERAPY 06/29/2018 JOHN LEMUS FACC, ALI FACP CCDS Ot E13.9 OTHER SPECIFIED DIABETES MELLITUS WITHOU 06/29/2018 JOHN LEMUS FACC, ALI FACP CCDS Ot I35.0 NONRHEUMATIC AORTIC (VALVE) STENOSIS 06/29/2018 JOHN LEMUS FACC, ALI FACP CCDS Ot I65.23 OCCLUSION AND STENOSIS OF BILATERAL [place] 06/29/2018 JOHN LEMUS FACC, ALI FACP CCDS Ot N18.3 CHRONIC KIDNEY DISEASE, STAGE 3 (MODERAT 06/29/2018 JOHN LEMUS FACC, ALI FACP CCDS Ot R06.09 OTHER FORMS OF DYSPNEA 06/29/2018 JOHN LEMUS FACC, ALI FACP CCDS Ot E13.9 OTHER SPECIFIED DIABETES MELLITUS WITHOU 06/29/2018 JOHN BAEZC, ALI FACP CCDS Ot I35.0 NONRHEUMATIC AORTIC (VALVE) STENOSIS 06/29/2018 JOHN LEMUS FACC, ALI FACP CCDS Ot I65.23 OCCLUSION AND STENOSIS OF BILATERAL [place] 06/29/2018 JOHN LEMUS FACC, ALI FACP CCDS Ot N18.3 CHRONIC KIDNEY DISEASE, STAGE 3 (MODERAT 06/29/2018 JOHN LEMUS FACC, ALI FACP CCDS Ot R06.09 OTHER FORMS OF DYSPNEA 06/29/2018 IVELISSE LEMUS, TANA Castillo Ot Z48.812 ENCNTR FOR SURGICAL AFTCR FOLLOWING SURG 06/29/2018 IVELISSE LEMUS, TANA Castillo Ot Z95.5 PRESENCE OF CORONARY ANGIOPLASTY IMPLANT 06/29/2018 RANDY MORRISON PRODUCTION UNDERWRITER Ot S32.030A WEDGE COMPRESSION FRACTURE OF THIRD LUMB 06/29/2018 RANDY MORRISON PRODUCTION UNDERWRITER Ot 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 06/29/2018 RANDY MORRISON PRODUCTION UNDERWRITER Ot M46.87 OTH INFLAMMATORY SPONDYLOPATHIES, LUMBOS 06/29/2018 RANDY MORRISON PRODUCTION UNDERWRITER Ot M47.816 SPONDYLOSIS W/O MYELOPATHY OR RADICULOPA 06/29/2018 RANDY MORRISON PRODUCTION UNDERWRITER Ot M48.07 SPINAL STENOSIS, LUMBOSACRAL REGION 06/29/2018 RANDY MORRISON PRODUCTION UNDERWRITER Ot M51.27 OTHER INTERVERTEBRAL DISC DISPLACEMENT, 06/29/2018 RANDY MORRISON PRODUCTION UNDERWRITER Ot M51.36 OTHER INTERVERTEBRAL DISC DEGENERATION, 06/29/2018 BRANDIE LEMUS, KURTIS Phillips Ot K80.20 CALCULUS OF GALLBLADDER W/O CHOLECYSTITI 06/29/2018 LESLEE LEMUS, RAJEEV Camarena Ot R10.11 RIGHT UPPER QUADRANT PAIN 06/29/2018 LESLEE LEMUS, RAJEEV Camarena Ot R11.0 NAUSEA 06/29/2018 LESLEE LMEUS, RAJEEV Camarena Ot Z98.890 OTHER SPECIFIED POSTPROCEDURAL STATES 06/29/2018 OPAL BLUE APRN Ot K57.30 DVRTCLOS OF LG INT W/O PERFORATION OR AB 06/29/2018 OPAL BLUE APRN Ot K63.89 OTHER SPECIFIED DISEASES OF INTESTINE 06/29/2018 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 Ot K76.0 FATTY (CHANGE OF) LIVER, NOT ELSEWHERE C 06/29/2018 OPAL BLUE APRN Ot K85.90 ACUTE PANCREATITIS WITHOUT NECROSIS OR I 06/29/2018 OPAL BLUE APRN Ot N94.89 OTH COND ASSOC W FEMALE GENITAL ORGANS A 06/29/2018 ALLEN ADAMES J T Ot N83.209 UNSPECIFIED OVARIAN CYST, UNSPECIFIED SI 06/29/2018 ALLEN ADAMES J T Ot Z12.31 ENCNTR SCREEN MAMMOGRAM FOR MALIGNANT NE 06/30/2018 ALLEN ADAMES J T Ot N83.209 UNSPECIFIED OVARIAN CYST, UNSPECIFIED SI 06/30/2018 ALLEN Catalino ADAMES Ot Z12.31 ENCNTR SCREEN MAMMOGRAM FOR MALIGNANT NE 07/01/2018 BLAKE ESCOBAR DO, Ot E78.00 PURE HYPERCHOLESTEROLEMIA, UNSPECIFIED 07/01/2018 BLAKE ESCOBAR DO, Ot 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 07/01/2018 BLAKE ESCOBAR DO Ot I11.0 HYPERTENSIVE HEART DISEASE WITH HEART FA 07/01/2018 BLAKE ESCOBAR DO, Ot I25.10 ATHSCL HEART DISEASE OF [place] CORONARY 07/01/2018 BLAKE ESCOBAR DO Ot I35.0 NONRHEUMATIC AORTIC (VALVE) STENOSIS 07/01/2018 BLAKE ESCOBAR DO Ot I50.22 CHRONIC SYSTOLIC (CONGESTIVE) HEART FAIL 07/01/2018 BLAKE ESCOBAR DO, Ot M48.04 SPINAL STENOSIS, THORACIC REGION 07/01/2018 BLAKE ESCOBAR DO, Ot M51.24 OTHER INTERVERTEBRAL DISC DISPLACEMENT, 07/01/2018 BLAKE ESCOBAR DO, Ot M51.34 OTHER INTERVERTEBRAL DISC DEGENERATION, 07/01/2018 BLAKE ESCOBAR DO, Ot Z90.49 ACQUIRED ABSENCE OF OTHER SPECIFIED PART 08/01/2018 BLAKE ESCOBAR DO, Ot M81.0 AGE-RELATED OSTEOPOROSIS W/O CURRENT PAT 08/03/2018 BLAKE ESCOBAR DO, Ot M40.299 OTHER KYPHOSIS, SITE UNSPECIFIED 08/03/2018 BLAKE ESCOBAR DO, Ot M51.24 OTHER INTERVERTEBRAL DISC DISPLACEMENT, 08/03/2018 BLAKE ESCOBAR DO, Ot R29.890 LOSS OF HEIGHT 08/03/2018 BLAKE ESCOBAR DO, Ot Z78.0 ASYMPTOMATIC MENOPAUSAL STATE 08/23/2018 BLAKE ESCOBAR DO Ot M40.299 OTHER KYPHOSIS, SITE UNSPECIFIED 08/23/2018 BLAKE ESCOBAR DO, Ot M51.24 OTHER INTERVERTEBRAL DISC DISPLACEMENT, 08/23/2018 BLAKE ESCOBAR DO, Ot R29.890 LOSS OF HEIGHT 08/23/2018 BLAKE ESCOBAR DO, Ot Z78.0 ASYMPTOMATIC MENOPAUSAL STATE 12/30/2018 SAFIA LEMUS, HENRY Camarena Ot V76.12 [facility] SCREEN MAMMO-MALIGN NEOPLASM OF JOSE 12/30/2018 Ot 785.2 CARD IAC MURMURS NEC 12/30/2018 JOHN LEMUS FACC, ALI FACP CCDS Ot 250.00 DIAB FAIZAN WO COMPL, TYPE II OR UNSPEC TY 12/30/2018 JOHN LEMUS FACC, ALI FACP CCDS Ot 424.1 AORTIC VALVE DISORDER 12/30/2018 JOHN LEMUS FACC, ALI FACP CCDS Ot 729.5 PAIN IN LIMB 12/30/2018 JOHN LEMUS FACC, ALI FACP CCDS Ot 786.09 RESPIRATORY ABNORM NEC 12/30/2018 JOHN LEMUS FACC, ALI FACP CCDS Ot 786.59 CHEST PAIN NEC 12/30/2018 JOHN LEMUS FACC, ALI FACP CCDS Ot 250.00 DIAB FAIZAN WO COMPL, TYPE II OR UNSPEC TY 12/30/2018 JOHN LEMUS FACC, ALI FACP CCDS Ot 424.1 AORTIC VALVE DISORDER 12/30/2018 JOHN LEMUS FACC, ALI FACP CCDS Ot 729.5 PAIN IN LIMB 12/30/2018 JOHN LEMUS FACC, ALI FACP CCDS Ot 786.09 RESPIRATORY ABNORM NEC 12/30/2018 JOHN LEMUS FACC, ALI FACP CCDS Ot 786.50 CHEST PAIN NOS 12/30/2018 JOHN LEMUS FACC, ALI FACP CCDS Ot V58.69 OT MED,LT,CURRENT USE 12/30/2018 GALE MENDEZ MD Ot 724.4 LUMBOSACRAL NEURITIS NOS 12/30/2018 GALE MENDEZ MD Ot 722.1 0 LUMBAR DISC DISPLACEMENT 12/30/2018 GALE MENDEZ MD Ot 722.5 2 LUMB/LUMBOSAC DISC DEGEN 12/30/2018 JOHN LEMUS FACC, ALI FACP CCDS Ot I35.0 NONRHEUMATIC AORTIC (VALVE) STENOSIS 12/30/2018 JOHN LEMUS FACC, ALI FACP CCDS Ot I65.23 OCCLUSION AND STENOSIS OF BILATERAL [place] 12/30/2018 JOHN LEMUS FACC, ALI FACP CCDS Ot R42 DIZZINESS AND GIDDINESS 12/30/2018 THOMAS MCGEE MD Ot I65.23 OCCLUSION AND STENOSIS OF BILATERAL [place] 12/30/2018 VINEET DASILVA PRODUCTION UNDERWRITER Ot I35.0 NONRHEUMATIC AORTIC (VALVE) STENOSIS 12/30/2018 LAITH BECK MD Ot M47.816 SPONDYLOSIS W/O MYELOPATHY OR RADICULOPA 12/30/2018 LAITH BECK MD, Ot M51. 16 INTERVERTEBRAL DISC DISORDERS W RADICULO 12/30/2018 LAITH BECK MD, Ot Z79.899 OTHER TELEPHONE ADVICE NURSE (CURRENT) DRUG THERAPY 12/30/2018 OPAL BLUE APRN Ot E11.9 TYPE 2 DIABETES MELLITUS WITHOUT COMPLIC 12/30/2018 LAITH BECK MD, Ot M51. 16 INTERVERTEBRAL DISC DISORDERS W RADICULO 12/30/2018 LAITH BECK MD Ot Z79. 84 TELEPHONE ADVICE NURSE (CURRENT) USE OF ORAL HYPOGLYC 12/30/2018 LAITH BECK MD, Ot Z79.899 OTHER SHELTER (CURRENT) DRUG THERAPY 12/30/2018 JOHN LEMUS FACC, DEMARIO FACP CCDS Ot E13.9 OTHER SPECIFIED DIABETES MELLITUS WITHOU 12/30/2018 JOHN LEMUS FACC, ALI FACP CCDS Ot I35.0 NONRHEUMATIC AORTIC (VALVE) STENOSIS 12/30/2018 JOHN LEMUS FACC, ALI FACP CCDS Ot I65.23 OCCLUSION AND STENOSIS OF BILATERAL [place] 12/30/2018 JOHN LEMUS FACC, ALI FACP CCDS Ot N18.3 CHRONIC KIDNEY DISEASE, STAGE 3 (MODERAT 12/30/2018 JOHN LEMUS FACDoc, ALI FACP CCDS Ot R06.09 OTHER FORMS OF DYSPNEA 12/30/2018 JOHN LEMUS FACC, ALI FACP CCDS Ot E13.9 OTHER SPECIFIED DIABETES MELLITUS WITHOU 12/30/2018 JOHN LEMUS FACC, ALI FACP CCDS Ot I35.0 NONRHEUMATIC AORTIC (VALVE) STENOSIS 12/30/2018 JOHN LEMUS FACC, ALI FACP CCDS Ot I65.23 OCCLUSION AND STENOSIS OF BILATERAL [place] 12/30/2018 JOHN LEMUS FACC, ALI FACP CCDS Ot N18.3 CHRONIC KIDNEY DISEASE, STAGE 3 (MODERAT 12/30/2018 JOHN LEMUS FACC, ALI FACP CCDS Ot R06.09 OTHER FORMS OF DYSPNEA 12/30/2018 TANA OVIEDO MD Ot Z48.812 ENCNTR FOR SURGICAL AFTCR FOLLOWING SURG 12/30/2018 TANA OVIEDO MD Ot Z95.5 PRESENCE OF CORONARY ANGIOPLASTY IMPLANT 12/30/2018 MORRISON, RANDY M PRODUCTION UNDERWRITER Ot S32.030A WEDGE COMPRESSION FRACTURE OF THIRD LUMB 12/30/2018 RANDY MORRISON PRODUCTION UNDERWRITER Ot 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 12/30/2018 RANDY MORRISON PRODUCTION UNDERWRITER Ot M46.87 OTH INFLAMMATORY SPONDYLOPATHIES, LUMBOS 12/30/2018 RANDY MORRISON PRODUCTION UNDERWRITER Ot M47.816 SPONDYLOSIS W/O MYELOPATHY OR RADICULOPA 12/30/2018 RANDY MORRISON PRODUCTION UNDERWRITER Ot M48.07 SPINAL STENOSIS, LUMBOSACRAL REGION 12/30/2018 RANDY MORRISON PRODUCTION UNDERWRITER Ot M51.27 OTHER INTERVERTEBRAL DISC DISPLACEMENT, 12/30/2018 RANDY MORRISON PRODUCTION UNDERWRITER Ot M51.36 OTHER INTERVERTEBRAL DISC DEGENERATION, 12/30/2018 BRANDIE LEMUS, KURTIS Phillips Ot K80.20 CALCULUS OF GALLBLADDER W/O CHOLECYSTITI 12/30/2018 LESLEE LEMUS, RAJEEV Camarena Ot R10.11 RIGHT UPPER QUADRANT PAIN 12/30/2018 LESLEE LEMUS, RAJEEV Camarena Ot R11.0 NAUSEA 12/30/2018 LESLEE LEMUS, RAJEEV Camarena Ot Z98.890 OTHER SPECIFIED POSTPROCEDURAL STATES 12/30/2018 OPAL BLUE APRN Ot K57.30 DVRTCLOS OF LG INT W/O PERFORATION OR AB 12/30/2018 OPAL BLUE APRN Ot K63.89 OTHER SPECIFIED DISEASES OF INTESTINE 12/30/2018 OPAL BLUE APRN Ot K76.0 FATTY (CHANGE OF) LIVER, NOT ELSEWHERE C 12/30/2018 OPAL BLUE APRN Ot K85.90 ACUTE PANCREATITIS WITHOUT NECROSIS OR I 12/30/2018 OPAL BLUE APRN Ot N94.89 OTH COND ASSOC W FEMALE GENITAL ORGANS A 12/30/2018 Catalino VILLA DO Ot N83.209 UNSPECIFIED OVARIAN CYST, UNSPECIFIED SI 12/30/2018 Catalino VILLA DO Ot Z12.31 ENCNTR SCREEN MAMMOGRAM FOR MALIGNANT NE 12/30/2018 BLAKE ESCOBAR DO Ot E78.00 PURE HYPERCHOLESTEROLEMIA, UNSPECIFIED 12/30/2018 BLAKE ESCOBAR DO Ot 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 12/30/2018 BLAKE ESCOBAR DO Ot I11.0 HYPERTENSIVE HEART DISEASE WITH HEART FA 12/30/2018 BLAKE ESCOBAR DO Ot I25.10 ATHSCL HEART DISEASE OF [place] CORONARY 12/30/2018 BLAKE ESCOBAR DO Ot I35.0 NONRHEUMATIC AORTIC (VALVE) STENOSIS 12/30/2018 BLAKE ESCOBAR DO Ot I50.22 CHRONIC SYSTOLIC (CONGESTIVE) HEART FAIL 12/30/2018 BLAKE ESCOBAR DO Ot M48.04 SPINAL STENOSIS, THORACIC REGION 12/30/2018 BLAKE ESCOBAR DO Ot M51.24 OTHER INTERVERTEBRAL DISC DISPLACEMENT, 12/30/2018 BLAKE ESCOBAR DO Ot M51.34 OTHER INTERVERTEBRAL DISC DEGENERATION, 12/30/2018 BLAKE ESCOBAR DO Ot Z90.49 ACQUIRED ABSENCE OF OTHER SPECIFIED PART 12/30/2018 BLAKE ESCOBAR DO Ot M40.299 OTHER KYPHOSIS, SITE UNSPECIFIED 12/30/2018 BLAKE ESCOBAR DO Ot M51.24 OTHER INTERVERTEBRAL DISC DISPLACEMENT, 12/30/2018 BLAKE ESCOBAR DO Ot R29.890 LOSS OF HEIGHT 12/30/2018 BLAKE ESCOBAR DO Ot Z78.0 ASYMPTOMATIC MENOPAUSAL STATE 01/03/2019 WARNER ESCOBAR PRODUCTION UNDERWRITER Ot K76.9 LIVER DISEASE, UNSPECIFIED 01/05/2019 DEV ESCOBARIA Hailey PRODUCTION UNDERWRITER Ot K76.9 LIVER DISEASE, UNSPECIFIED 01/19/2019 DEV ESCOBARIA Hailey PRODUCTION UNDERWRITER Ot K76.9 LIVER DISEASE, UNSPECIFIED 02/14/2019 DEV ESCOBARIA Hailey PRODUCTION UNDERWRITER Ot M19.041 PRIMARY OSTEOARTHRITIS, RIGHT HAND 02/14/2019 WARNER ESCOBAR PRODUCTION UNDERWRITER Ot M25.50 PAIN IN UNSPECIFIED JOINT 02/14/2019 DEV ESCOBARIA Hailey PRODUCTION UNDERWRITER Ot M79.18 MYALGIA, OTHER SITE 02/19/2019 EVERARDO LEMUS, THOMAS Carvalho Ot I65.23 OCCLUSION AND STENOSIS OF BILATERAL [place] 02/19/2019 OPAL BLUE APRN Ot E11.9 TYPE 2 DIABETES MELLITUS WITHOUT COMPLIC 02/19/2019 TANA OVIEDO MD Ot Z48.812 ENCNTR FOR SURGICAL AFTCR FOLLOWING SURG 02/19/2019 TANA OVIEDO MD Ot Z95.5 PRESENCE OF CORONARY ANGIOPLASTY IMPLANT 02/21/2019 LIDIA TAN MD Ot E03. 9 HYPOTHYROIDISM, UNSPECIFIED 02/21/2019 LIDIA TAN MD Ot E11. 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 W DIABETIC PERIPHERAL AN 02/21/2019 LIDIA TAN MD, Ot E78. 00 PURE HYPERCHOLESTEROLEMIA, UNSPECIFIED 02/21/2019 LIDIA TAN MD, Ot E78. 5 HYPERLIPIDEMIA, UNSPECIFIED 02/21/2019 LIDIA TAN MD, Ot F32. 9 MAJOR DEPRESSIVE DISORDER, SINGLE EPISOD 02/21/2019 LIDIA TAN MD, Ot F41. 9 ANXIETY DISORDER, UNSPECIFIED 02/21/2019 LIDIA TAN MD, Ot G89. 29 OTHER CHRONIC PAIN 02/21/2019 LIDIA TAN MD, Ot I13. 0 HYP HRT CHR KDNY DIS W HRT FAIL AND ST 02/21/2019 LIDIA TAN MD, Ot I25. 10 ATHSCL HEART DISEASE OF [place] CORONARY 02/21/2019 LIDIA TAN MD, Ot I25. 5 ISCHEMIC CARDIOMYOPATHY 02/21/2019 LIDIA TAN MD Ot I48. 0 PAROXYSMAL ATRIAL FIBRILLATION 02/21/2019 LIDIA TAN MD Ot I50. 33 ACUTE ON CHRONIC DIASTOLIC (CONGESTIVE) 02/21/2019 LIDIA TAN MD Ot I65. 29 OCCLUSION AND STENOSIS OF UNSPECIFIED CA 02/21/2019 LIDIA TAN MD Ot K44. 9 DIAPHRAGMATIC HERNIA WITHOUT OBSTRUCTION 02/21/2019 LIDIA TAN MD Ot M19. 90 UNSPECIFIED OSTEOARTHRITIS, UNSPECIFIED 02/21/2019 LIDIA TAN MD Ot M54. 9 DORSALGIA, UNSPECIFIED 02/21/2019 LIDIA TAN MD Ot M81. 0 AGE-RELATED OSTEOPOROSIS W/O CURRENT PAT 02/21/2019 LIDIA TAN MD Ot N18. 3 CHRONIC KIDNEY DISEASE, STAGE 3 (MODERAT 02/21/2019 LIDIA TAN MD Ot Z79. 4 TELEPHONE ADVICE NURSE (CURRENT) USE OF INSULIN 02/21/2019 LIDIA TAN MD Ot Z87.440 PERSONAL HISTORY OF URINARY (TRACT) INFE 02/21/2019 LIDIA TAN MD Ot Z90.710 ACQUIRED ABSENCE OF BOTH CERVIX AND UTER 02/21/2019 LIDIA TAN MD Ot Z95. 5 PRESENCE OF CORONARY ANGIOPLASTY IMPLANT 02/21/2019 LIDIA TAN MD Ot Z96.653 PRESENCE OF ARTIFICIAL KNEE JOINT, BILAT Procedures Code Description Performed By Per formed On [id number] NM ASURE OF CARDIAC SAMPL PRESSURE, L H 02/18/2017 [id number] FL UOROSCOPY OF MULT COR ART USING L OSM 02/18/2017 [id number] FL UOROSCOPY OF LEFT HEART USING LOW OSMO 02/18/2017 [id number] FL UOROSCOPY OF ABDOMINAL AORTA USING LOW 02/18/2017 [id number] RE SPIRATORY VENTILATION, 24- 96 CONSECUTI 12/02/[id number] LOPES OF LEFT UPPER LUNG LOBE, ENDO, 12/03/2017 [id number] EX TRACTION OF LEFT UPPER LOBE BRONCHUS, 12/03/2017 [id number] EX CISION OF STOMACH, PYLORUS, ENDO, DIAG 12/03/2017 Results Test Result Range Arterial blood gas measurement - 7 00:00 Blood pCO2 44 mm[Hg] 35-45 Blood pO2 266 mm[Hg] 79-93 Arterial blood bicarbonate measurement (moles/volume) 19 mmol/L 23-27 Arterial blood base excess by calculation -7.8 mmo l/L -2.5-2.5 Arterial blood oxygen saturation measurement 100 % 94-100 * Inhaled oxygen flow rate 80% NRG Arterial blood pH measurement with patient temperature correction 7.24 7.37-7.43 Arterial blood carbon dioxide, total measurement (mole s/volume) 20.1 mmol/L 21.0-31.0 Body site L RAD NRG Assessment of wrist artery patency prior to arterial p uncture YES-POS NRG Setting of ventilation mode NO NR G Measurement of body temperature 95.5 NRG Complete blood count (CBC) with automate d white blood cell (WBC) differential - 02/18/17 04:23 Blood leukocytes automated count (number/volume) 12.1 10*3/uL 4.3-11.0 Blood erythrocytes automated count (number/volume) 4.39 10*6/uL 4.35-5.85 Venous blood hemoglobin measurement (mass/volume) 12.6 g/dL 11.5-16.0 Blood hematocrit (volume fraction) 39 % 35-52 Automated erythrocyte mean corpuscular volume 90 [ foz_us] 80-99 Automated erythrocyte mean corpuscular h emoglobin (mass per erythrocyte) 29 pg 25-34 Automated erythrocyte mean corpuscular h emoglobin concentration measurement (mass/volume) 32 g/dL 32-36 Automated erythrocyte distribution width ratio 14. 2 % 10.0- 14.5 Automated blood platelet count (count/volume) 500 10*3/uL [...] 10*3 1.0-4.0 Blood monocytes automated count (number/volume) 0. 4 10*3 0.0-1.0 Automated eosinophil count 0.1 10*3/uL 0 .0-0.3 Automated blood basophil count (count/volume) 0.1 10*3/uL 0.0-0.1 PT panel in platelet poor plasma by coag ulation assay - 02/18/17 04:23 Prothrombin time (PT) in platelet poor plasma by coagu lation assay 12.8 s 12.2-14.7 INR in platelet poor plasma or blood by coagulation as say 1.0 0.8-1.4 Activated partial thromboplastin time (a PTT) in platelet poor plasma bycoagulation assay - 02/18/17 04:23 Activated partial thromboplastin time (a PTT) in platelet poor plasma bycoagulation assay 30 s 24-35 Serum or plasma C reactive protein measu rement (mass/volume) - 02/18/17 04:23 Serum or plasma C reactive protein measurement (mass/v olume) 0.25 mg/dL 0.00-0.50 Comprehensive metabolic panel - 02/18/17 04:23 Serum or plasma sodium measurement (moles/volume) 136 mmol/L 135-145 Serum or plasma potassium measurement (moles/volume) 3.6 mmol/L 3.6-5.0 Serum or plasma chloride measurement (moles/volume) 101 mmol/L 98-107 Carbon dioxide 19 mmol/L 21-32 Serum or plasma anion gap determination (moles/volume) 16 mmol/L 5-14 Serum or plasma urea nitrogen measurement (mass/volume ) 23 mg/dL 7-18 Serum or plasma creatinine measurement (mass/volume) 1.28 mg/dL 0.60-1.30 Serum or plasma urea nitrogen/creatinine mass ratio 18 NRG Serum or plasma creatinine measurement w ith calculation of estimated glomerular filtration rate 41 NRG Serum or plasma glucose measurement (mass/volume) 388 mg/dL 70-105 Serum or plasma calcium measurement (mass/volume) 8.8 mg/dL 8.5-10.1 Serum or plasma total bilirubin measurement (mass/volu me) 0.4 mg/dL 0.1-1.0 Serum or plasma alkaline phosphatase sonal surement (enzymatic activity/volume) 78 U/L 40-136 Serum or plasma aspartate aminotransfera se measurement (enzymatic activity/volume) 40 U/L 5-34 Serum or plasma alanine aminotransferase measurement (enzymatic activity/volume) 57 U/L 0-55 Serum or plasma protein measurement (mass/volume) 6.7 g/dL 6.4-8.2 Serum or plasma albumin measurement (mass/volume) 4.1 g/dL 3.2-4.5 Magnesium - 02/18/17 04:23 Magnesium 2.2 mg/dL 1.8-2.4 Serum or plasma lithium measurement (mol es/volume) - 02/18/17 04:23 BNP level 2963.7 pg/mL <100.0 Serum or plasma troponin i.cardiac measu rement (mass/volume) - 02/18/17 04:23 Serum or plasma troponin i.cardiac measurement (mass/v olume) < ng/mL <0.30 Myoglobin, serum - 02/18/17 04:23 Myoglobin, serum 53.3 ng/mL 10.0-92.0 Blood lactic acid measurement (moles/vol ume) - 02/18/17 04:30 Blood lactic acid measurement (moles/volume) 4.01 mmol/L 0.50-2.00 THYROID STIMULATING HORMONE - 02/18/17 0 4:30 THYROID STIMULATING HORMONE 2.54 u[iU]/mL 0.35-4.94 Serum or plasma thyroxine (T4) free holden urement (mass/volume) - 02/18/17 04:30 Serum or plasma thyroxine (T4) free measurement (mass/ volume) 1.06 ng/dL 0.70-1.48 Bacterial blood culture - 02/18/17 04:30 Bacterial blood culture NG NRG Bacterial blood culture - 02/18/17 05:18 Bacterial blood culture NG NRG Complete urinalysis with reflex to cultu re - 02/18/17 05:32 Urine color determination YELLOW NRG Urine clarity determination CLOUDY NR G Urine pH measurement by test strip 5 5-9 Specific gravity of urine by test strip 1.020 1.016-1.022 Urine protein assay by test strip, semi-quantitative 3+ NEGATIVE Urine glucose detection by automated test strip 3+ NEGATIVE Erythrocytes detection in urine sediment by light micr oscopy NEGATIVE NEGATIVE Urine ketones detection by automated test strip NE GATIVE NEGATIVE Urine nitrite detection by test strip POSITIVE NEGATIVE Urine total bilirubin detection by test strip NEGA TIVE NEGATIVE Urine urobilinogen measurement by automated test strip (mass/volume) NORMAL NORMAL Urine leukocyte esterase detection by dipstick NEG ATIVE NEGATIVE Automated urine sediment erythrocyte cou nt by microscopy (number/high power field) NONE NRG Automated urine sediment leukocyte count by microscopy (number/high power field) RARE NRG Bacteria detection in urine sediment by light microsco py LARGE NRG Squamous epithelial cells detection in u rine sediment by light microscopy NONE NRG Crystals detection in urine sediment by light microsco py NONE NRG Casts detection in urine sediment by light microscopy PRESENT NRG Mucus detection in urine sediment by light microscopy NEGATIVE NRG Complete urinalysis with reflex to culture YES NRG Hyaline casts detection in urine sediment by light pina roscopy 0-2 NRG Bacterial urine culture - 02/18/17 05:32 Bacterial urine culture [id number] NRG COLONY COUNT >100,000/ML NRG FTX;REPORTABLE 3 DIFFERENT COLONY TYPES OBSERVED NRG URINE CULTURE RESULTS PLUS NRG FREE TEXT ENTRY 2 COMBINED SENSITIVITY REPORTED AT 1120, NRG FREE TEXT ENTRY 3 02-20-17 NRG Bacterial susceptibility panel - 7 05:32 Gentamicin susceptibility test by minimum inhibitory c oncentration <= NRG Trimethoprim/sulfamethoxazole susceptibi lity test by minimum inhibitoryconcentration <= NRG Ampicillin susceptibility test by minimum inhibitory c oncentration >= NRG Tobramycin susceptibility test by minimum inhibitory c oncentration <= NRG Cefazolin susceptibility test by minimum inhibitory co ncentration <= NRG Ceftriaxone susceptibility test by minimum inhibitory concentration <= NRG Ampicillin/sulbactam susceptibility test by minimum inhibitory concentration S NRG Ciprofloxacin susceptibility test by minimum inhibitor y concentration <= NRG Meropenem susceptibility test by minimum inhibitory co ncentration <= NRG Nitrofurantoin susceptibility test by mi nimum inhibitory concentration 256 NRG Aztreonam susceptibility test by minimum inhibitory co ncentration <= NRG Extended spectrum beta lactamase (ESBL) producing bacteria susceptibility test by minimum inhibitory concentration - NRG Methicillin resistant Staphylococcus aur eus (MRSA) screening culture - 02/18/17 07:00 Methicillin resistant Staphylococcus aureus (MRSA) scr eening culture NEG NRG Serum or plasma lactate measurement (mol es/volume) - 02/18/17 07:11 Serum or plasma lactate measurement (moles/volume) 1.07 mmol/L 0.50-2.00 Lipid 1996 panel - 02/18/17 07:11 Serum or plasma triglyceride measurement (mass/volume) 195 mg/dL <150 Serum or plasma cholesterol measurement (mass/volume) 211 mg/dL < 200 Serum or plasma cholesterol in HDL measurement (mass/v olume) 41 mg/dL 40-60 Cholesterol in LDL [mass/volume] in serum or plasma by direct assay 141 mg/dL 1-129 Serum or plasma cholesterol in VLDL measurement (mass/ volume) 39 mg/dL 5-40 Complete blood count (CBC) with automate d white blood cell (WBC) differential - 05/25/17 01:05 Blood leukocytes automated count (number/volume) 6.6 10*3/uL 4.3-11.0 Blood erythrocytes automated count (number/volume) 4.09 10*6/uL 4.35-5.85 Venous blood hemoglobin measurement (mass/volume) 11.3 g/dL 11.5-16.0 Blood hematocrit (volume fraction) 35 % 35-52 Automated erythrocyte mean corpuscular volume 86 [ foz_us] 80-99 Automated erythrocyte mean corpuscular h emoglobin (mass per erythrocyte) 28 pg 25-34 Automated erythrocyte mean corpuscular h emoglobin concentration measurement (mass/volume) 32 g/dL 32-36 Automated erythrocyte distribution width ratio 14. 9 % 10.0- 14.5 Automated blood platelet count (count/volume) 401 10*3/uL [...] 10*3 1.0-4.0 Blood monocytes automated count (number/volume) 0. 2 10*3 0.0-1.0 Automated eosinophil count 0.1 10*3/uL 0 .0-0.3 Automated blood basophil count (count/volume) 0.0 10*3/uL 0.0-0.1 Comprehensive metabolic panel - 05/25/17 01:05 Serum or plasma sodium measurement (moles/volume) 140 mmol/L 135-145 Serum or plasma potassium measurement (moles/volume) 4.4 mmol/L 3.6-5.0 Serum or plasma chloride measurement (moles/volume) 106 mmol/L 98-107 Carbon dioxide 22 mmol/L 21-32 Serum or plasma anion gap determination (moles/volume) 12 mmol/L 5-14 Serum or plasma urea nitrogen measurement (mass/volume ) 18 mg/dL 7-18 Serum or plasma creatinine measurement (mass/volume) 1.19 mg/dL 0.60-1.30 Serum or plasma urea nitrogen/creatinine mass ratio 15 NRG Serum or plasma creatinine measurement w ith calculation of estimated glomerular filtration rate 44 NRG Serum or plasma glucose measurement (mass/volume) 148 mg/dL 70-105 Serum or plasma calcium measurement (mass/volume) 9.4 mg/dL 8.5-10.1 Serum or plasma total bilirubin measurement (mass/volu me) 0.3 mg/dL 0.1-1.0 Serum or plasma alkaline phosphatase sonal surement (enzymatic activity/volume) 70 U/L 40-136 Serum or plasma aspartate aminotransfera se measurement (enzymatic activity/volume) 54 U/L 5-34 Serum or plasma alanine aminotransferase measurement (enzymatic activity/volume) 43 U/L 0-55 Serum or plasma protein measurement (mass/volume) 7.0 g/dL 6.4-8.2 Serum or plasma albumin measurement (mass/volume) 4.4 g/dL 3.2-4.5 Magnesium - 05/25/17 01:05 Magnesium 2.0 mg/dL 1.8-2.4 Serum or plasma troponin i.cardiac measu rement (mass/volume) - 05/25/17 01:05 Serum or plasma troponin i.cardiac measurement (mass/v olume) < ng/mL <0.30 Fibrin D-dimer FEU measurement in platel et poor plasma (mass/volume) - 05/25/17 01:05 Fibrin D-dimer FEU measurement in platelet poor plasma (mass/volume) 1.12 ug/mL 0.00-0.49 Serum or plasma lithium measurement (mol es/volume) - 05/25/17 01:05 BNP level 1370.1 pg/mL <100.0 Methicillin resistant Staphylococcus aur eus (MRSA) screening culture - 05/25/17 05:25 Methicillin resistant Staphylococcus aureus (MRSA) scr eening culture NEG NRG Capillary blood glucose measurement by g lucometer (mass/volume) - 05/25/17 06:02 Capillary blood glucose measurement by glucometer (mas s/volume) 181 mg/dL 70-110 Serum or plasma troponin i.cardiac measu rement (mass/volume) - 05/25/17 07:39 Serum or plasma troponin i.cardiac measurement (mass/v olume) < ng/mL <0.30 Myoglobin, serum - 05/25/17 07:39 Myoglobin, serum 53.3 ng/mL 10.0-92.0 Lipid 1996 panel - 05/25/17 07:39 Serum or plasma triglyceride measurement (mass/volume) 174 mg/dL <150 Serum or plasma cholesterol measurement (mass/volume) 197 mg/dL < 200 Serum or plasma cholesterol in HDL measurement (mass/v olume) 41 mg/dL 40-60 Cholesterol in LDL [mass/volume] in serum or plasma by direct assay 130 mg/dL 1-129 Serum or plasma cholesterol in VLDL measurement (mass/ volume) 35 mg/dL 5-40 THYROID STIMULATING HORMONE - 05/25/17 0 7:39 THYROID STIMULATING HORMONE 1.24 u[iU]/mL 0.35-4.94 Capillary blood glucose measurement by g lucometer (mass/volume) - 05/25/17 11:00 Capillary blood glucose measurement by glucometer (mas s/volume) 156 mg/dL 70-110 Serum or plasma troponin i.cardiac measu rement (mass/volume) - 05/25/17 13:10 Serum or plasma troponin i.cardiac measurement (mass/v olume) < ng/mL <0.30 Capillary blood glucose measurement by g lucometer (mass/volume) - 05/25/17 16:03 Capillary blood glucose measurement by glucometer (mas s/volume) 239 mg/dL 70-110 Capillary blood glucose measurement by g lucometer (mass/volume) - 05/25/17 20:12 Capillary blood glucose measurement by glucometer (mas s/volume) 138 mg/dL 70-110 Complete blood count (CBC) with automate d white blood cell (WBC) differential - 05/26/17 03:15 Blood leukocytes automated count (number/volume) 5.9 10*3/uL 4.3-11.0 Blood erythrocytes automated count (number/volume) 4.12 10*6/uL 4.35-5.85 Venous blood hemoglobin measurement (mass/volume) 11.5 g/dL 11.5-16.0 Blood hematocrit (volume fraction) 35 % 35-52 Automated erythrocyte mean corpuscular volume 85 [ foz_us] 80-99 Automated erythrocyte mean corpuscular h emoglobin (mass per erythrocyte) 28 pg 25-34 Automated erythrocyte mean corpuscular h emoglobin concentration measurement (mass/volume) 33 g/dL 32-36 Automated erythrocyte distribution width ratio 14. 6 % 10.0- 14.5 Automated blood platelet count (count/volume) 393 10*3/uL [...] 10*3 1.0-4.0 Blood monocytes automated count (number/volume) 0. 4 10*3 0.0-1.0 Automated eosinophil count 0.1 10*3/uL 0 .0-0.3 Automated blood basophil count (count/volume) 0.0 10*3/uL 0.0-0.1 Whole blood basic metabolic panel - 05/13 06/30 03:15 Serum or plasma sodium measurement (moles/volume) 140 mmol/L 135-145 Serum or plasma potassium measurement (moles/volume) 4.0 mmol/L 3.6-5.0 Serum or plasma chloride measurement (moles/volume) 103 mmol/L 98-107 Carbon dioxide 24 mmol/L 21-32 Serum or plasma anion gap determination (moles/volume) 13 mmol/L 5-14 Serum or plasma urea nitrogen measurement (mass/volume ) 19 mg/dL 7-18 Serum or plasma creatinine measurement (mass/volume) 1.11 mg/dL 0.60-1.30 Serum or plasma urea nitrogen/creatinine mass ratio 17 NRG Serum or plasma creatinine measurement w ith calculation of estimated glomerular filtration rate 48 NRG Serum or plasma glucose measurement (mass/volume) 148 mg/dL 70-105 Serum or plasma calcium measurement (mass/volume) 9.0 mg/dL 8.5-10.1 Serum or plasma phosphate measurement (m ass/volume) - 05/26/17 03:15 Serum or plasma phosphate measurement (mass/volume) 5.0 mg/dL 2.3-4.7 Magnesium - 05/26/17 03:15 Magnesium 1.9 mg/dL 1.8-2.4 Digoxin - 05/26/17 03:15 Digoxin 0.74 ng/mL 0.80-2.00 Complete blood count (CBC) with automate d white blood cell (WBC) differential - 12/02/17 03:45 Blood leukocytes automated count (number/volume) 6.0 10*3/uL 4.3-11.0 Blood erythrocytes automated count (number/volume) 4.01 10*6/uL 4.35-5.85 Venous blood hemoglobin measurement (mass/volume) 11.7 g/dL 11.5-16.0 Blood hematocrit (volume fraction) 35 % 35-52 Automated erythrocyte mean corpuscular volume 87 [ foz_us] 80-99 Automated erythrocyte mean corpuscular h emoglobin (mass per erythrocyte) 29 pg 25-34 Automated erythrocyte mean corpuscular h emoglobin concentration measurement (mass/volume) 34 g/dL 32-36 Automated erythrocyte distribution width ratio 13. 4 % 10.0- 14.5 Automated blood platelet count (count/volume) 377 10*3/uL 130-400 Automated blood platelet mean volume measurement 9.8 [foz_us] 7.4-10.4 Automated blood neutrophils/100 leukocytes 78 % 42-75 Automated blood lymphocytes/100 leukocytes 19 % 12-44 Blood monocytes/100 leukocytes 2 % 0-12 Automated blood eosinophils/100 leukocytes 1 % 0-10 Automated blood basophils/100 leukocytes 0 % 0-10 Blood neutrophils automated count (number/volume) 4.7 10*3 1.8-7.8 Blood lymphocytes automated count (number/volume) 1.1 10*3 1.0-4.0 Blood monocytes automated count (number/volume) 0. 1 10*3 0.0-1.0 Automated eosinophil count 0.1 10*3/uL 0 .0-0.3 Automated blood basophil count (count/volume) 0.0 10*3/uL 0.0-0.1 PT panel in platelet poor plasma by coag ulation assay - 12/02/17 03:45 Prothrombin time (PT) in platelet poor plasma by coagu lation assay 13.5 s 12.2-14.7 INR in platelet poor plasma or blood by coagulation as say 1.0 0.8-1.4 Activated partial thromboplastin time (a PTT) in platelet poor plasma bycoagulation assay - 12/02/17 03:45 Activated partial thromboplastin time (a PTT) in platelet poor plasma bycoagulation assay 32 s 24-35 Blood lactic acid measurement (moles/vol ume) - 12/02/17 03:45 Blood lactic acid measurement (moles/volume) 2.24 mmol/L 0.50-2.00 Comprehensive metabolic panel - 12/02/17 03:45 Serum or plasma sodium measurement (moles/volume) 139 mmol/L 135-145 Serum or plasma potassium measurement (moles/volume) 3.7 mmol/L 3.6-5.0 Serum or plasma chloride measurement (moles/volume) 102 mmol/L 98-107 Carbon dioxide 24 mmol/L 21-32 Serum or plasma anion gap determination (moles/volume) 13 mmol/L 5-14 Serum or plasma urea nitrogen measurement (mass/volume ) 23 mg/dL 7-18 Serum or plasma creatinine measurement (mass/volume) 1.13 mg/dL 0.60-1.30 Serum or plasma urea nitrogen/creatinine mass ratio 20 NRG Serum or plasma creatinine measurement w ith calculation of estimated glomerular filtration rate 47 NRG Serum or plasma glucose measurement (mass/volume) 179 mg/dL 70-105 Serum or plasma calcium measurement (mass/volume) 9.1 mg/dL 8.5-10.1 Serum or plasma total bilirubin measurement (mass/volu me) 0.4 mg/dL 0.1-1.0 Serum or plasma alkaline phosphatase sonal surement (enzymatic activity/volume) 70 U/L 40-136 Serum or plasma aspartate aminotransfera se measurement (enzymatic activity/volume) 39 U/L 5-34 Serum or plasma alanine aminotransferase measurement (enzymatic activity/volume) 30 U/L 0-55 Serum or plasma protein measurement (mass/volume) 6.5 g/dL 6.4-8.2 Serum or plasma albumin measurement (mass/volume) 4.1 g/dL 3.2-4.5 CALCIUM CORRECTED 9.0 mg/dL 8.5-10.1 Bacterial blood culture - 12/02/17 03:45 Bacterial blood culture NG [facility] Serum glomerular basement membrane antib salvador assay (mass/volume) - 12/02/17 03:45 Serum glomerular basement membrane antibody assay (uni ts/volume) < % 0.0-19.9 Bacterial blood culture - 12/02/17 04:29 QUANTITY OF GROWTH . [facility] Bacterial blood culture SEE COMMEN [facility] Sputum Gram stain - 12/02/17 04:33 Sputum Gram stain REPORT 12-03-2017, 0905. [facility] Bacterial sputum culture - 12/02/17 04:3 3 QUANTITY OF GROWTH . [facility] Bacterial sputum culture USUAL RESP [facility] Influenza virus A and B antigen detectio n - 12/02/17 06:00 FLU RESULT NEGATIVE FOR INFLUENZA A AND B ANTIGENS BY IA [facility] Methicillin resistant Staphylococcus aur eus (MRSA) screening culture - 12/02/17 06:00 Methicillin resistant Staphylococcus aureus (MRSA) scr eening culture NEG NRG Serum or plasma lactate measurement (mol es/volume) - 12/02/17 06:11 Serum or plasma lactate measurement (moles/volume) 2.61 mmol/L 0.50-2.00 Complete urinalysis with reflex to cultu re - 12/02/17 09:35 Urine color determination YELLOW NRG Urine clarity determination CLEAR NR G Urine pH measurement by test strip 6 5-9 Specific gravity of urine by test strip 1.015 1.016-1.022 Urine protein assay by test strip, semi-quantitative NEGATIVE NEGATIVE Urine glucose detection by automated test strip NE GATIVE NEGATIVE Erythrocytes detection in urine sediment by light micr oscopy NEGATIVE NEGATIVE Urine ketones detection by automated test strip NE GATIVE NEGATIVE Urine nitrite detection by test strip POSITIVE NEGATIVE Urine total bilirubin detection by test strip NEGA TIVE NEGATIVE Urine urobilinogen measurement by automated test strip (mass/volume) NORMAL NORMAL Urine leukocyte esterase detection by dipstick 2+ NEGATIVE Automated urine sediment erythrocyte cou nt by microscopy (number/high power field) NONE NRG Automated urine sediment leukocyte count by microscopy (number/high power field) [HPF] NRG Bacteria detection in urine sediment by light microsco py MODERATE NRG Squamous epithelial cells detection in u rine sediment by light microscopy 5-10 NRG Crystals detection in urine sediment by light microsco py NONE NRG Casts detection in urine sediment by light microscopy NONE NRG Mucus detection in urine sediment by light microscopy NEGATIVE NRG Complete urinalysis with reflex to culture YES NRG Urine Legionella pneumophila antigen ass ay - 12/02/17 09:35 Urine Legionella pneumophila antigen assay Negativ e NRG Streptococcus pneumoniae antigen detecti on - 12/02/17 09:35 Streptococcus pneumoniae antigen detection Negativ e NRG Bacterial urine culture - 12/02/17 09:35 Bacterial urine culture SEE REPORT NRG COLONY COUNT . NRG FTX;REPORTABLE RML SENSITIVITY REPORTED 12/05/17 09 :05 NRG RML Sensitivity Panel - 12/02/17 09:35 Gentamicin susceptibility test by minimum inhibitory c oncentration <= NRG Trimethoprim/sulfamethoxazole susceptibi lity test by minimum inhibitoryconcentration <= NRG Levofloxacin susceptibility test by minimum inhibitory concentration <= NRG Ampicillin susceptibility test by minimum inhibitory c oncentration > NRG Cefazolin susceptibility test by minimum inhibitory co ncentration 2 NRG Ceftriaxone susceptibility test by minimum inhibitory concentration <= NRG Ciprofloxacin susceptibility test by minimum inhibitor y concentration <= NRG Meropenem susceptibility test by minimum inhibitory co ncentration <= NRG Nitrofurantoin susceptibility test by mi nimum inhibitory concentration 32 NRG Amoxicillin and clavulanate potassium susc PINA <= NRG Arterial blood gas measurement - 8 20:35 Blood pCO2 36 mm[Hg] 35-45 Blood pO2 404 mm[Hg] 79-93 Arterial blood bicarbonate measurement (moles/volume) 22 mmol/L 23-27 Arterial blood base excess by calculation -2.4 mmo l/L -2.5-2.5 Arterial blood oxygen saturation measurement 100 % 94-100 * Inhaled oxygen flow rate 100% NRG Arterial blood pH measurement with patient temperature correction 7.40 7.37-7.43 Arterial blood carbon dioxide, total measurement (mole s/volume) 22.9 mmol/L 21.0-31.0 Body site RIGHT RADIAL NRG Assessment of wrist artery patency prior to arterial p uncture POSITIVE NRG Setting of ventilation mode YES NR G Measurement of body temperature 97.8 NRG Serum or plasma triglyceride measurement (mass/volume) - 12/02/17 20:45 Serum or plasma triglyceride measurement (mass/volume) 259 mg/dL <150 ANTI-NUCLEAR AB (GUMARO) ANALYZER - 8 20:45 Screening antinuclear antibody (GUMARO) assay by enzyme i mmunoassay <1:80 <1:80 Serum classic neutrophil cytoplasmic ant ibody assay (units/volume) - 12/02/17 20:45 Antineutrophil cytoplasmic antibody (ANCA) assay < <1:20 Antineutrophil cytoplasmic antibody (ANCA) pattern Not Indicated NRG Capillary blood glucose measurement by g lucometer (mass/volume) - 12/02/17 22:02 Capillary blood glucose measurement by glucometer (mas s/volume) 245 mg/dL 70-110 Capillary blood glucose measurement by g lucometer (mass/volume) - 12/02/17 23:30 Capillary blood glucose measurement by glucometer (mas s/volume) 201 mg/dL 70-110 Complete blood count (CBC) with automate d white blood cell (WBC) differential - 12/03/17 03:13 Blood leukocytes automated count (number/volume) 10.7 10*3/uL 4.3-11.0 Blood erythrocytes automated count (number/volume) 3.33 10*6/uL 4.35-5.85 Venous blood hemoglobin measurement (mass/volume) 9.4 g/dL 11.5-16.0 Blood hematocrit (volume fraction) 30 % 35-52 Automated erythrocyte mean corpuscular volume 90 [ foz_us] 80-99 Automated erythrocyte mean corpuscular h emoglobin (mass per erythrocyte) 28 pg 25-34 Automated erythrocyte mean corpuscular h emoglobin concentration measurement (mass/volume) 31 g/dL 32-36 Automated erythrocyte distribution width ratio 14. 1 % 10.0- 14.5 Automated blood platelet count (count/volume) 309 10*3/uL 130-400 Automated blood platelet mean volume measurement 10.0 [foz_us] 7.4-10.4 Automated blood neutrophils/100 leukocytes 85 % 42-75 Automated blood lymphocytes/100 leukocytes 12 % 12-44 Blood monocytes/100 leukocytes 3 % 0-12 Automated blood eosinophils/100 leukocytes 0 % 0-10 Automated blood basophils/100 leukocytes 0 % 0-10 Blood neutrophils automated count (number/volume) 9.0 10*3 1.8-7.8 Blood lymphocytes automated count (number/volume) 1.3 10*3 1.0-4.0 Blood monocytes automated count (number/volume) 0. 3 10*3 0.0-1.0 Automated eosinophil count 0.0 10*3/uL 0 .0-0.3 Automated blood basophil count (count/volume) 0.0 10*3/uL 0.0-0.1 Comprehensive metabolic panel - 12/03/17 03:13 Serum or plasma sodium measurement (moles/volume) 140 mmol/L 135-145 Serum or plasma potassium measurement (moles/volume) 3.9 mmol/L 3.6-5.0 Serum or plasma chloride measurement (moles/volume) 108 mmol/L 98-107 Carbon dioxide 19 mmol/L 21-32 Serum or plasma anion gap determination (moles/volume) 13 mmol/L 5-14 Serum or plasma urea nitrogen measurement (mass/volume ) 18 mg/dL 7-18 Serum or plasma creatinine measurement (mass/volume) 1.18 mg/dL 0.60-1.30 Serum or plasma urea nitrogen/creatinine mass ratio 15 NRG Serum or plasma creatinine measurement w ith calculation of estimated glomerular filtration rate 44 NRG Serum or plasma glucose measurement (mass/volume) 168 mg/dL 70-105 Serum or plasma calcium measurement (mass/volume) 7.8 mg/dL 8.5-10.1 Serum or plasma total bilirubin measurement (mass/volu me) 0.3 mg/dL 0.1-1.0 Serum or plasma alkaline phosphatase sonal surement (enzymatic activity/volume) 55 U/L 40-136 Serum or plasma aspartate aminotransfera se measurement (enzymatic activity/volume) 28 U/L 5-34 Serum or plasma alanine aminotransferase measurement (enzymatic activity/volume) 21 U/L 0-55 Serum or plasma protein measurement (mass/volume) 5.5 g/dL 6.4-8.2 Serum or plasma albumin measurement (mass/volume) 3.3 g/dL 3.2-4.5 CALCIUM CORRECTED 8.4 mg/dL 8.5-10.1 Serum or plasma phosphate measurement (m ass/volume) - 12/03/17 03:13 Serum or plasma phosphate measurement (mass/volume) 4.2 mg/dL 2.3-4.7 Magnesium - 12/03/17 03:13 Magnesium 1.9 mg/dL 1.8-2.4 Blood lactic acid measurement (moles/vol ume) - 12/03/17 03:13 Blood lactic acid measurement (moles/volume) 4.63 mmol/L 0.50-2.00 PT panel in platelet poor plasma by coag ulation assay - 12/03/17 03:13 Prothrombin time (PT) in platelet poor plasma by coagu lation assay 15.7 s 12.2-14.7 INR in platelet poor plasma or blood by coagulation as say 1.3 0.8-1.4 Activated partial thromboplastin time (a PTT) in platelet poor plasma bycoagulation assay - 12/03/17 03:13 Activated partial thromboplastin time (a PTT) in platelet poor plasma bycoagulation assay 46 s 24-35 Serum or plasma lithium measurement (mol es/volume) - 12/03/17 03:13 BNP level 1922.4 pg/mL <100.0 Arterial blood gas measurement - 8 03:20 Blood pCO2 44 mm[Hg] 35-45 Blood pO2 92 mm[Hg] 79-93 Arterial blood bicarbonate measurement (moles/volume) 22 mmol/L 23-27 Arterial blood base excess by calculation -3.9 mmo l/L -2.5-2.5 Arterial blood oxygen saturation measurement 97 % 94-100 * Inhaled oxygen flow rate 30% NRG Arterial blood pH measurement with patient temperature correction 7.30 7.37-7.43 Arterial blood carbon dioxide, total measurement (mole s/volume) 23.0 mmol/L 21.0-31.0 Body site LEFT RADIAL NRG Assessment of wrist artery patency prior to arterial p uncture YES-POS NRG Setting of ventilation mode YES NR G Measurement of body temperature 97.5 NRG Sputum Gram stain - 12/03/17 07:00 Sputum Gram stain REPORTED 12-03-2017, 1705. NRG Bacteria identification in bronchial spe cimen by aerobe culture - 12/03/17 07:00 Bacteria identification in bronchial specimen by aerob e culture NG NRG Mycobacterium species detection by organ ism specific culture - 12/03/17 07:00 C FUNGUS SPUTUM FLUID TISSUE - 12/03/17 07:00 C FUNGUS SPUTUM FLUID TISSUE NG N RG Sputum Gram stain - 12/03/17 07:01 Sputum Gram stain REPORTED 12-03-2017, 1705 NRG Bacteria identification in bronchial spe cimen by aerobe culture - 12/03/17 07:01 Bacteria identification in bronchial specimen by aerob e culture NG NRG Mycobacterium species detection by organ ism specific culture - 12/03/17 07:01 C FUNGUS SPUTUM FLUID TISSUE - 12/03/17 07:01 C FUNGUS SPUTUM FLUID TISSUE NG N RG RESPIRATORY VIRUS PANEL - 12/03/17 07:03 Influenza A H1N1 virus detection by polymerase chain r eaction Not Detected Not Detected Influenza B virus RNA detection by polymerase chain re action Not Detected Not Detected Adenovirus detection, CSF, PCR Not Detected Not Detected Parainfluenza 1 virus RNA nucleic acid assay by PCR Not Detected Not Detected Parainfluenza virus 2 Ab [Titer] in Serum Not Dete cted Not Detected Parainfluenza virus 3 RNA detection by PCR Not Det ected Not Detected Human metapneumovirus (hMPV) RNA detection by PCR Not Detected Not Detected RSV PCR Not Detected Not Detected Capillary blood glucose measurement by g lucometer (mass/volume) - 12/03/17 11:34 Capillary blood glucose measurement by glucometer (mas s/volume) 168 mg/dL 70-110 Capillary blood glucose measurement by g lucometer (mass/volume) - 12/03/17 15:26 Capillary blood glucose measurement by glucometer (mas s/volume) 195 mg/dL 70-110 Complete blood count (CBC) with automate d white blood cell (WBC) differential - 12/03/17 15:34 Blood leukocytes automated count (number/volume) 17.3 10*3/uL 4.3-11.0 Blood erythrocytes automated count (number/volume) 3.76 10*6/uL 4.35-5.85 Venous blood hemoglobin measurement (mass/volume) 10.6 g/dL 11.5-16.0 Blood hematocrit (volume fraction) 34 % 35-52 Automated erythrocyte mean corpuscular volume 91 [ foz_us] 80-99 Automated erythrocyte mean corpuscular h emoglobin (mass per erythrocyte) 28 pg 25-34 Automated erythrocyte mean corpuscular h emoglobin concentration measurement (mass/volume) 31 g/dL 32-36 Automated erythrocyte distribution width ratio 14. 5 % 10.0- 14.5 Automated blood platelet count (count/volume) 386 10*3/uL 130-400 Automated blood platelet mean volume measurement 10.2 [foz_us] 7.4-10.4 Automated blood neutrophils/100 leukocytes 94 % 42-75 Automated blood lymphocytes/100 leukocytes 4 % 12-44 Blood monocytes/100 leukocytes 2 % 0-12 Automated blood eosinophils/100 leukocytes 0 % 0-10 Automated blood basophils/100 leukocytes 0 % 0-10 Blood neutrophils automated count (number/volume) 16.3 10*3 1.8-7.8 Blood lymphocytes automated count (number/volume) 0.6 10*3 1.0-4.0 Blood monocytes automated count (number/volume) 0. 3 10*3 0.0-1.0 Automated eosinophil count 0.0 10*3/uL 0 .0-0.3 Automated blood basophil count (count/volume) 0.0 10*3/uL 0.0-0.1 Blood lactic acid measurement (moles/vol ume) - 12/03/17 15:34 Blood lactic acid measurement (moles/volume) 1.99 mmol/L 0.50-2.00 Whole blood basic metabolic panel - 11/14 04/01 15:34 Serum or plasma sodium measurement (moles/volume) 138 mmol/L 135-145 Serum or plasma potassium measurement (moles/volume) 4.3 mmol/L 3.6-5.0 Serum or plasma chloride measurement (moles/volume) 111 mmol/L 98-107 Carbon dioxide 17 mmol/L 21-32 Serum or plasma anion gap determination (moles/volume) 10 mmol/L 5-14 Serum or plasma urea nitrogen measurement (mass/volume ) 16 mg/dL 7-18 Serum or plasma creatinine measurement (mass/volume) 1.13 mg/dL 0.60-1.30 Serum or plasma urea nitrogen/creatinine mass ratio 14 NRG Serum or plasma creatinine measurement w ith calculation of estimated glomerular filtration rate 47 NRG Serum or plasma glucose measurement (mass/volume) 224 mg/dL 70-105 Serum or plasma calcium measurement (mass/volume) 7.8 mg/dL 8.5-10.1 Serum or plasma phosphate measurement (m ass/volume) - 12/03/17 15:34 Serum or plasma phosphate measurement (mass/volume) 4.0 mg/dL 2.3-4.7 Magnesium - 12/03/17 15:34 Magnesium 1.7 mg/dL 1.8-2.4 Blood manual differential performed dete ction - 12/03/17 15:34 Blood monocytes/100 leukocytes 2 % NRG Manual blood segmented neutrophils/100 leukocytes 90 % NRG Blood band neutrophils/100 leukocytes 3 % NRG Manual blood lymphocytes/100 leukocytes 5 % NRG Manual eosinophils/100 leukocytes in nose 0 % NRG Manual blood basophils/100 leukocytes 0 % NRG Blood erythrocyte morphology finding identification NORMAL NRG Capillary blood glucose measurement by g lucometer (mass/volume) - 12/03/17 18:06 Capillary blood glucose measurement by glucometer (mas s/volume) 253 mg/dL 70-110 Whole blood [facility]oc[facility] - 12/03/17 19:05 Venous blood hemoglobin measurement (mass/volume) 8.9 g/dL 11.5-16.0 Blood hematocrit (volume fraction) 28 % 35-52 Capillary blood glucose measurement by g lucometer (mass/volume) - 12/03/17 23:28 Capillary blood glucose measurement by glucometer (mas s/volume) 263 mg/dL 70-110 Whole blood hemoglobin and hematocrit [facility] - 12/03/17 23:52 Venous blood hemoglobin measurement (mass/volume) 9.3 g/dL 11.5-16.0 Blood hematocrit (volume fraction) 30 % 35-52 Arterial blood gas measurement - 8 03:10 Blood pCO2 41 mm[Hg] 35-45 Blood pO2 73 mm[Hg] 79-93 Arterial blood bicarbonate measurement (moles/volume) 20 mmol/L 23-27 Arterial blood base excess by calculation -5.2 mmo l/L -2.5-2.5 Arterial blood oxygen saturation measurement 95 % 94-100 * Inhaled oxygen flow rate 30% NRG Arterial blood pH measurement with patient temperature correction 7.31 7.37-7.43 Arterial blood carbon dioxide, total measurement (mole s/volume) 21.5 mmol/L 21.0-31.0 Body site RIGHT RADIAL NRG Assessment of wrist artery patency prior to arterial p uncture YES-POS NRG Setting of ventilation mode YES NR G Measurement of body temperature 97.2 NRG Complete blood count (CBC) with automate d white blood cell (WBC) differential - 12/04/17 03:10 Blood leukocytes automated count (number/volume) 10.2 10*3/uL 4.3-11.0 Blood erythrocytes automated count (number/volume) 2.96 10*6/uL 4.35-5.85 Venous blood hemoglobin measurement (mass/volume) 8.5 g/dL 11.5-16.0 Blood hematocrit (volume fraction) 27 % 35-52 Automated erythrocyte mean corpuscular volume 90 [ foz_us] 80-99 Automated erythrocyte mean corpuscular h emoglobin (mass per erythrocyte) 29 pg 25-34 Automated erythrocyte mean corpuscular h emoglobin concentration measurement (mass/volume) 32 g/dL 32-36 Automated erythrocyte distribution width ratio 14. 0 % 10.0- 14.5 Automated blood platelet count (count/volume) 291 10*3/uL 130-400 Automated blood platelet mean volume measurement 10.3 [foz_us] 7.4-10.4 Automated blood neutrophils/100 leukocytes 96 % 42-75 Automated blood lymphocytes/100 leukocytes 3 % 12-44 Blood monocytes/100 leukocytes 2 % 0-12 Automated blood eosinophils/100 leukocytes 0 % 0-10 Automated blood basophils/100 leukocytes 0 % 0-10 Blood neutrophils automated count (number/volume) 9.7 10*3 1.8-7.8 Blood lymphocytes automated count (number/volume) 0.3 10*3 1.0-4.0 Blood monocytes automated count (number/volume) 0. 2 10*3 0.0-1.0 Automated eosinophil count 0.0 10*3/uL 0 .0-0.3 Automated blood basophil count (count/volume) 0.0 10*3/uL 0.0-0.1 Whole blood basic metabolic panel - 11/14 05/02 03:10 Serum or plasma sodium measurement (moles/volume) 138 mmol/L 135-145 Serum or plasma potassium measurement (moles/volume) 4.0 mmol/L 3.6-5.0 Serum or plasma chloride measurement (moles/volume) 114 mmol/L 98-107 Carbon dioxide 17 mmol/L 21-32 Serum or plasma anion gap determination (moles/volume) 7 mmol/L 5-14 Serum or plasma urea nitrogen measurement (mass/volume ) 16 mg/dL 7-18 Serum or plasma creatinine measurement (mass/volume) 1.05 mg/dL 0.60-1.30 Serum or plasma urea nitrogen/creatinine mass ratio 15 NRG Serum or plasma creatinine measurement w ith calculation of estimated glomerular filtration rate 51 NRG Serum or plasma glucose measurement (mass/volume) 250 mg/dL 70-105 Serum or plasma calcium measurement (mass/volume) 7.6 mg/dL 8.5-10.1 Serum or plasma phosphate measurement (m ass/volume) - 12/04/17 03:10 Serum or plasma phosphate measurement (mass/volume) 2.8 mg/dL 2.3-4.7 Magnesium - 12/04/17 03:10 Magnesium 2.2 mg/dL 1.8-2.4 Pathologist review of blood test by comm ent - 12/04/17 05:50 Blood leukocytes automated count (number/volume) 8.2 10*3/uL 4.3-11.0 Blood erythrocytes automated count (number/volume) 2.83 10*6/uL 4.35-5.85 Venous blood hemoglobin measurement (mass/volume) 8.2 g/dL 11.5-16.0 Blood hematocrit (volume fraction) 25 % 35-52 Automated erythrocyte mean corpuscular volume 90 [ foz_us] 80-99 Automated erythrocyte mean corpuscular h emoglobin (mass per erythrocyte) 29 pg 25-34 Automated erythrocyte mean corpuscular h emoglobin concentration measurement (mass/volume) 32 g/dL 32-36 Automated erythrocyte distribution width ratio 13. 9 % 10.0- 14.5 Automated blood platelet count (count/volume) 246 10*3/uL 130-400 Automated blood platelet mean volume measurement 10.0 [foz_us] 7.4-10.4 Automated blood neutrophils/100 leukocytes 96 % 42-75 Automated blood lymphocytes/100 leukocytes 3 % 12-44 Blood monocytes/100 leukocytes 1 % NRG Automated blood eosinophils/100 leukocytes 0 % 0-10 Automated blood basophils/100 leukocytes 0 % 0-10 Blood neutrophils automated count (number/volume) 7.8 10*3 1.8-7.8 Blood lymphocytes automated count (number/volume) 0.3 10*3 1.0-4.0 Blood monocytes automated count (number/volume) 0. 1 10*3 0.0-1.0 Automated eosinophil count 0.0 10*3/uL 0 .0-0.3 Automated blood basophil count (count/volume) 0.0 10*3/uL 0.0-0.1 Manual blood segmented neutrophils/100 leukocytes 92 % NRG Blood band neutrophils/100 leukocytes 3 % NRG Manual blood lymphocytes/100 leukocytes 4 % NRG Blood anisocytosis detection by light microscopy S LIGHT NRG Blood reticulocytes count (number/volume) 41 10*9/ L 24-90 Blood reticulocytes/100 erythrocytes 1.43 % 0.50-2.40 Vancomycin trough - 12/04/17 05:50 Vancomycin trough 8.5 ug/mL 10.0-20.0 Serum or plasma haptoglobin measurement (mass/volume) - 12/04/17 05:50 Haptoglobin [mass/volume] in serum or plasma 186.0 % 37.0- 184.0 Capillary blood glucose measurement by g lucometer (mass/volume) - 12/04/17 11:51 Capillary blood glucose measurement by glucometer (mas s/volume) 207 mg/dL 70-110 Capillary blood glucose measurement by g lucometer (mass/volume) - 12/04/17 17:30 Capillary blood glucose measurement by glucometer (mas s/volume) 151 mg/dL 70-110 Whole blood hemoglobin and hematocrit [facility] - 12/04/17 17:56 Venous blood hemoglobin measurement (mass/volume) 8.1 g/dL 11.5-16.0 Blood hematocrit (volume fraction) 25 % 35-52 Arterial blood gas measurement - 8 21:19 Blood pCO2 37 mm[Hg] 35-45 Blood pO2 64 mm[Hg] 79-93 Arterial blood bicarbonate measurement (moles/volume) 18 mmol/L 23-27 Arterial blood base excess by calculation -7.1 mmo l/L -2.5-2.5 Arterial blood oxygen saturation measurement 89 % 94-100 * Inhaled oxygen flow rate 30% NRG Arterial blood pH measurement with patient temperature correction 7.31 7.37-7.43 Arterial blood carbon dioxide, total measurement (mole s/volume) 19.1 mmol/L 21.0-31.0 Body site RIGHT RADIAL NRG Assessment of wrist artery patency prior to arterial p uncture YES-POS NRG Setting of ventilation mode YES NR G Measurement of body temperature 98.0 NRG Serum or plasma triglyceride measurement (mass/volume) - 12/04/17 21:40 Serum or plasma triglyceride measurement (mass/volume) 174 mg/dL <150 Capillary blood glucose measurement by g lucometer (mass/volume) - 12/04/17 23:41 Capillary blood glucose measurement by glucometer (mas s/volume) 218 mg/dL 70-110 Complete blood count (CBC) with automate d white blood cell (WBC) differential - 12/05/17 03:00 Blood leukocytes automated count (number/volume) 12.1 10*3/uL 4.3-11.0 Blood erythrocytes automated count (number/volume) 3.03 10*6/uL 4.35-5.85 Venous blood hemoglobin measurement (mass/volume) 8.6 g/dL 11.5-16.0 Blood hematocrit (volume fraction) 27 % 35-52 Automated erythrocyte mean corpuscular volume 89 [ foz_us] 80-99 Automated erythrocyte mean corpuscular h emoglobin (mass per erythrocyte) 28 pg 25-34 Automated erythrocyte mean corpuscular h emoglobin concentration measurement (mass/volume) 32 g/dL 32-36 Automated erythrocyte distribution width ratio 14. 4 % 10.0- 14.5 Automated blood platelet count (count/volume) 326 10*3/uL 130-400 Automated blood platelet mean volume measurement 10.3 [foz_us] 7.4-10.4 Automated blood neutrophils/100 leukocytes 95 % 42-75 Automated blood lymphocytes/100 leukocytes 2 % 12-44 Blood monocytes/100 leukocytes 3 % 0-12 Automated blood eosinophils/100 leukocytes 0 % 0-10 Automated blood basophils/100 leukocytes 0 % 0-10 Blood neutrophils automated count (number/volume) 11.5 10*3 1.8-7.8 Blood lymphocytes automated count (number/volume) 0.3 10*3 1.0-4.0 Blood monocytes automated count (number/volume) 0. 3 10*3 0.0-1.0 Automated eosinophil count 0.0 10*3/uL 0 .0-0.3 Automated blood basophil count (count/volume) 0.0 10*3/uL 0.0-0.1 Arterial blood gas measurement - 8 03:00 Blood pCO2 38 mm[Hg] 35-45 Blood pO2 96 mm[Hg] 79-93 Arterial blood bicarbonate measurement (moles/volume) 21 mmol/L 23-27 Arterial blood base excess by calculation -3.3 mmo l/L -2.5-2.5 Arterial blood oxygen saturation measurement 98 % 94-100 * Inhaled oxygen flow rate 35% NRG Arterial blood pH measurement with patient temperature correction 7.37 7.37-7.43 Arterial blood carbon dioxide, total measurement (mole s/volume) 22.3 mmol/L 21.0-31.0 Body site RIGHT RADIAL NRG Assessment of wrist artery patency prior to arterial p uncture YES-POS NRG Setting of ventilation mode YES NR G Measurement of body temperature 98.3 NRG Whole blood basic metabolic panel - 11/14 05/30 03:00 Serum or plasma sodium measurement (moles/volume) 145 mmol/L 135-145 Serum or plasma potassium measurement (moles/volume) 3.7 mmol/L 3.6-5.0 Serum or plasma chloride measurement (moles/volume) 115 mmol/L 98-107 Carbon dioxide 21 mmol/L 21-32 Serum or plasma anion gap determination (moles/volume) 9 mmol/L 5-14 Serum or plasma urea nitrogen measurement (mass/volume ) 23 mg/dL 7-18 Serum or plasma creatinine measurement (mass/volume) 1.28 mg/dL 0.60-1.30 Serum or plasma urea nitrogen/creatinine mass ratio 18 NRG Serum or plasma creatinine measurement w ith calculation of estimated glomerular filtration rate 40 NRG Serum or plasma glucose measurement (mass/volume) 212 mg/dL 70-105 Serum or plasma calcium measurement (mass/volume) 7.8 mg/dL 8.5-10.1 Serum or plasma phosphate measurement (m ass/volume) - 12/05/17 03:00 Serum or plasma phosphate measurement (mass/volume) 2.8 mg/dL 2.3-4.7 Magnesium - 12/05/17 03:00 Magnesium 2.3 mg/dL 1.8-2.4 Capillary blood glucose measurement by g lucometer (mass/volume) - 12/05/17 11:38 Capillary blood glucose measurement by glucometer (mas s/volume) 220 mg/dL 70-110 Capillary blood glucose measurement by g lucometer (mass/volume) - 12/05/17 15:17 Capillary blood glucose measurement by glucometer (mas s/volume) 212 mg/dL 70-110 Capillary blood glucose measurement by g lucometer (mass/volume) - 12/05/17 17:01 Capillary blood glucose measurement by glucometer (mas s/volume) 224 mg/dL 70-110 Capillary blood glucose measurement by g lucometer (mass/volume) - 12/06/17 00:01 Capillary blood glucose measurement by glucometer (mas s/volume) 227 mg/dL 70-110 Complete blood count (CBC) with automate d white blood cell (WBC) differential - 12/06/17 03:57 Blood leukocytes automated count (number/volume) 10.7 10*3/uL 4.3-11.0 Blood erythrocytes automated count (number/volume) 3.12 10*6/uL 4.35-5.85 Venous blood hemoglobin measurement (mass/volume) 9.1 g/dL 11.5-16.0 Blood hematocrit (volume fraction) 28 % 35-52 Automated erythrocyte mean corpuscular volume 88 [ foz_us] 80-99 Automated erythrocyte mean corpuscular h emoglobin (mass per erythrocyte) 29 pg 25-34 Automated erythrocyte mean corpuscular h emoglobin concentration measurement (mass/volume) 33 g/dL 32-36 Automated erythrocyte distribution width ratio 14. 2 % 10.0- 14.5 Automated blood platelet count (count/volume) 318 10*3/uL 130-400 Automated blood platelet mean volume measurement 10.3 [foz_us] 7.4-10.4 Automated blood neutrophils/100 leukocytes 94 % 42-75 Automated blood lymphocytes/100 leukocytes 3 % 12-44 Blood monocytes/100 leukocytes 4 % 0-12 Automated blood eosinophils/100 leukocytes 0 % 0-10 Automated blood basophils/100 leukocytes 0 % 0-10 Blood neutrophils automated count (number/volume) 10.0 10*3 1.8-7.8 Blood lymphocytes automated count (number/volume) 0.3 10*3 1.0-4.0 Blood monocytes automated count (number/volume) 0. 4 10*3 0.0-1.0 Automated eosinophil count 0.0 10*3/uL 0 .0-0.3 Automated blood basophil count (count/volume) 0.0 10*3/uL 0.0-0.1 Whole blood basic metabolic panel - 11/14 06/30 03:57 Serum or plasma sodium measurement (moles/volume) 145 mmol/L 135-145 Serum or plasma potassium measurement (moles/volume) 3.8 mmol/L 3.6-5.0 Serum or plasma chloride measurement (moles/volume) 114 mmol/L 98-107 Carbon dioxide 20 mmol/L 21-32 Serum or plasma anion gap determination (moles/volume) 11 mmol/L 5-14 Serum or plasma urea nitrogen measurement (mass/volume ) 34 mg/dL 7-18 Serum or plasma creatinine measurement (mass/volume) 1.48 mg/dL 0.60-1.30 Serum or plasma urea nitrogen/creatinine mass ratio 23 NRG Serum or plasma creatinine measurement w ith calculation of estimated glomerular filtration rate 34 NRG Serum or plasma glucose measurement (mass/volume) 216 mg/dL 70-105 Serum or plasma calcium measurement (mass/volume) 8.2 mg/dL 8.5-10.1 Serum or plasma phosphate measurement (m ass/volume) - 12/06/17 03:57 Serum or plasma phosphate measurement (mass/volume) 3.6 mg/dL 2.3-4.7 Magnesium - 12/06/17 03:57 Magnesium 2.3 mg/dL 1.8-2.4 Arterial blood gas measurement - 8 04:05 Blood pCO2 35 mm[Hg] 35-45 Blood pO2 95 mm[Hg] 79-93 Arterial blood bicarbonate measurement (moles/volume) 21 mmol/L 23-27 Arterial blood base excess by calculation -3.2 mmo l/L -2.5-2.5 Arterial blood oxygen saturation measurement 98 % 94-100 * Inhaled oxygen flow rate 25% NRG Arterial blood pH measurement with patient temperature correction 7.39 7.37-7.43 Arterial blood carbon dioxide, total measurement (mole s/volume) 22.1 mmol/L 21.0-31.0 Body site RIGHT RADIAL NRG Assessment of wrist artery patency prior to arterial p uncture YES-POS NRG Setting of ventilation mode YES NR G Measurement of body temperature 98.4 NRG Arterial blood gas measurement - 8 10:23 Blood pCO2 33 mm[Hg] 35-45 Blood pO2 65 mm[Hg] 79-93 Arterial blood bicarbonate measurement (moles/volume) 21 mmol/L 23-27 Arterial blood base excess by calculation -3.1 mmo l/L -2.5-2.5 Arterial blood oxygen saturation measurement 91 % 94-100 * Inhaled oxygen flow rate 21% NRG Arterial blood pH measurement with patient temperature correction 7.42 7.37-7.43 Arterial blood carbon dioxide, total measurement (mole s/volume) 21.5 mmol/L 21.0-31.0 Body site R RAD NRG Assessment of wrist artery patency prior to arterial p uncture ART LINE NRG Setting of ventilation mode YES NR G Measurement of body temperature 100.0 NRG Capillary blood glucose measurement by g lucometer (mass/volume) - 12/06/17 11:17 Capillary blood glucose measurement by glucometer (mas s/volume) 196 mg/dL 70-110 Capillary blood glucose measurement by g lucometer (mass/volume) - 12/06/17 18:08 Capillary blood glucose measurement by glucometer (mas s/volume) 263 mg/dL 70-110 Capillary blood glucose measurement by g lucometer (mass/volume) - 12/06/17 23:39 Capillary blood glucose measurement by glucometer (mas s/volume) 198 mg/dL 70-110 Complete blood count (CBC) with automate d white blood cell (WBC) differential - 12/07/17 03:39 Blood leukocytes automated count (number/volume) 16.4 10*3/uL 4.3-11.0 Blood erythrocytes automated count (number/volume) 3.24 10*6/uL 4.35-5.85 Venous blood hemoglobin measurement (mass/volume) 9.2 g/dL 11.5-16.0 Blood hematocrit (volume fraction) 29 % 35-52 Automated erythrocyte mean corpuscular volume 89 [ foz_us] 80-99 Automated erythrocyte mean corpuscular h emoglobin (mass per erythrocyte) 28 pg 25-34 Automated erythrocyte mean corpuscular h emoglobin concentration measurement (mass/volume) 32 g/dL 32-36 Automated erythrocyte distribution width ratio 14. 6 % 10.0- 14.5 Automated blood platelet count (count/volume) 399 10*3/uL 130-400 Automated blood platelet mean volume measurement 9.9 [foz_us] 7.4-10.4 Automated blood neutrophils/100 leukocytes 92 % 42-75 Automated blood lymphocytes/100 leukocytes 4 % 12-44 Blood monocytes/100 leukocytes 3 % 0-12 Automated blood eosinophils/100 leukocytes 0 % 0-10 Automated blood basophils/100 leukocytes 0 % 0-10 Blood neutrophils automated count (number/volume) 15.1 10*3 1.8-7.8 Blood lymphocytes automated count (number/volume) 0.7 10*3 1.0-4.0 Blood monocytes automated count (number/volume) 0. 6 10*3 0.0-1.0 Automated eosinophil count 0.0 10*3/uL 0 .0-0.3 Automated blood basophil count (count/volume) 0.0 10*3/uL 0.0-0.1 Serum or plasma triglyceride measurement (mass/volume) - 12/07/17 03:39 Serum or plasma triglyceride measurement (mass/volume) 161 mg/dL <150 Whole blood basic metabolic panel - 11/14 07/30 03:39 Serum or plasma sodium measurement (moles/volume) 143 mmol/L 135-145 Serum or plasma potassium measurement (moles/volume) 4.1 mmol/L 3.6-5.0 Serum or plasma chloride measurement (moles/volume) 112 mmol/L 98-107 Carbon dioxide 20 mmol/L 21-32 Serum or plasma anion gap determination (moles/volume) 11 mmol/L 5-14 Serum or plasma urea nitrogen measurement (mass/volume ) 37 mg/dL 7-18 Serum or plasma creatinine measurement (mass/volume) 1.36 mg/dL 0.60-1.30 Serum or plasma urea nitrogen/creatinine mass ratio 27 NRG Serum or plasma creatinine measurement w ith calculation of estimated glomerular filtration rate 38 NRG Serum or plasma glucose measurement (mass/volume) 194 mg/dL 70-105 Serum or plasma calcium measurement (mass/volume) 8.0 mg/dL 8.5-10.1 Serum or plasma phosphate measurement (m ass/volume) - 12/07/17 03:39 Serum or plasma phosphate measurement (mass/volume) 3.6 mg/dL 2.3-4.7 Magnesium - 12/07/17 03:39 Magnesium 2.4 mg/dL 1.8-2.4 Serum or plasma lithium measurement (mol es/volume) - 12/07/17 03:39 BNP level 4814.5 pg/mL <100.0 Capillary blood glucose measurement by g lucometer (mass/volume) - 12/07/17 13:33 Capillary blood glucose measurement by glucometer (mas s/volume) 276 mg/dL 70-110 Capillary blood glucose measurement by g lucometer (mass/volume) - 12/07/17 17:25 Capillary blood glucose measurement by glucometer (mas s/volume) 169 mg/dL 70-110 Capillary blood glucose measurement by g lucometer (mass/volume) - 12/07/17 19:21 Capillary blood glucose measurement by glucometer (mas s/volume) 195 mg/dL 70-110 Capillary blood glucose measurement by g lucometer (mass/volume) - 12/07/17 23:35 Capillary blood glucose measurement by glucometer (mas s/volume) 199 mg/dL 70-110 Complete blood count (CBC) with automate d white blood cell (WBC) differential - 12/08/17 03:55 Blood leukocytes automated count (number/volume) 17.9 10*3/uL 4.3-11.0 Blood erythrocytes automated count (number/volume) 3.49 10*6/uL 4.35-5.85 Venous blood hemoglobin measurement (mass/volume) 10.0 g/dL 11.5-16.0 Blood hematocrit (volume fraction) 31 % 35-52 Automated erythrocyte mean corpuscular volume 88 [ foz_us] 80-99 Automated erythrocyte mean corpuscular h emoglobin (mass per erythrocyte) 29 pg 25-34 Automated erythrocyte mean corpuscular h emoglobin concentration measurement (mass/volume) 33 g/dL 32-36 Automated erythrocyte distribution width ratio 14. 2 % 10.0- 14.5 Automated blood platelet count (count/volume) 479 10*3/uL 130-400 Automated blood platelet mean volume measurement 10.3 [foz_us] 7.4-10.4 Automated blood neutrophils/100 leukocytes 90 % 42-75 Automated blood lymphocytes/100 leukocytes 6 % 12-44 Blood monocytes/100 leukocytes 4 % 0-12 Automated blood eosinophils/100 leukocytes 0 % 0-10 Automated blood basophils/100 leukocytes 0 % 0-10 Blood neutrophils automated count (number/volume) 16.1 10*3 1.8-7.8 Blood lymphocytes automated count (number/volume) 1.1 10*3 1.0-4.0 Blood monocytes automated count (number/volume) 0. 7 10*3 0.0-1.0 Automated eosinophil count 0.0 10*3/uL 0 .0-0.3 Automated blood basophil count (count/volume) 0.0 10*3/uL 0.0-0.1 Whole blood basic metabolic panel - 11/14 08/30 03:55 Serum or plasma sodium measurement (moles/volume) 142 mmol/L 135-145 Serum or plasma potassium measurement (moles/volume) 4.4 mmol/L 3.6-5.0 Serum or plasma chloride measurement (moles/volume) 108 mmol/L 98-107 Carbon dioxide 22 mmol/L 21-32 Serum or plasma anion gap determination (moles/volume) 12 mmol/L 5-14 Serum or plasma urea nitrogen measurement (mass/volume ) 40 mg/dL 7-18 Serum or plasma creatinine measurement (mass/volume) 1.41 mg/dL 0.60-1.30 Serum or plasma urea nitrogen/creatinine mass ratio 28 NRG Serum or plasma creatinine measurement w ith calculation of estimated glomerular filtration rate 36 NRG Serum or plasma glucose measurement (mass/volume) 210 mg/dL 70-105 Serum or plasma calcium measurement (mass/volume) 7.9 mg/dL 8.5-10.1 Serum or plasma phosphate measurement (m ass/volume) - 12/08/17 03:55 Serum or plasma phosphate measurement (mass/volume) 4.2 mg/dL 2.3-4.7 Magnesium - 12/08/17 03:55 Magnesium 2.2 mg/dL 1.8-2.4 Digoxin - 12/08/17 03:55 Digoxin < ng/mL 0.80-2.00 Serum or plasma lithium measurement (mol es/volume) - 12/08/17 09:13 BNP level 4748.1 pg/mL <100.0 Capillary blood glucose measurement by g lucometer (mass/volume) - 12/08/17 13:05 Capillary blood glucose measurement by glucometer (mas s/volume) 330 mg/dL 70-110 Capillary blood glucose measurement by g lucometer (mass/volume) - 12/08/17 18:02 Capillary blood glucose measurement by glucometer (mas s/volume) 258 mg/dL 70-110 Capillary blood glucose measurement by g lucometer (mass/volume) - 12/08/17 21:12 Capillary blood glucose measurement by glucometer (mas s/volume) 156 mg/dL 70-110 Complete blood count (CBC) with automate d white blood cell (WBC) differential - 12/09/17 05:20 Blood leukocytes automated count (number/volume) 13.6 10*3/uL 4.3-11.0 Blood erythrocytes automated count (number/volume) 3.74 10*6/uL 4.35-5.85 Venous blood hemoglobin measurement (mass/volume) 10.5 g/dL 11.5-16.0 Blood hematocrit (volume fraction) 33 % 35-52 Automated erythrocyte mean corpuscular volume 89 [ foz_us] 80-99 Automated erythrocyte mean corpuscular h emoglobin (mass per erythrocyte) 28 pg 25-34 Automated erythrocyte mean corpuscular h emoglobin concentration measurement (mass/volume) 32 g/dL 32-36 Automated erythrocyte distribution width ratio 14. 6 % 10.0- 14.5 Automated blood platelet count (count/volume) 501 10*3/uL 130-400 Automated blood platelet mean volume measurement 9.7 [foz_us] 7.4-10.4 Automated blood neutrophils/100 leukocytes 78 % 42-75 Automated blood lymphocytes/100 leukocytes 15 % 12-44 Blood monocytes/100 leukocytes 5 % 0-12 Automated blood eosinophils/100 leukocytes 2 % 0-10 Automated blood basophils/100 leukocytes 0 % 0-10 Blood neutrophils automated count (number/volume) 10.6 10*3 1.8-7.8 Blood lymphocytes automated count (number/volume) 2.0 10*3 1.0-4.0 Blood monocytes automated count (number/volume) 0. 7 10*3 0.0-1.0 Automated eosinophil count 0.3 10*3/uL 0 .0-0.3 Automated blood basophil count (count/volume) 0.0 10*3/uL 0.0-0.1 Whole blood basic metabolic panel - 11/14 09/29 05:20 Serum or plasma sodium measurement (moles/volume) 142 mmol/L 135-145 Serum or plasma potassium measurement (moles/volume) 4.3 mmol/L 3.6-5.0 Serum or plasma chloride measurement (moles/volume) 108 mmol/L 98-107 Carbon dioxide 22 mmol/L 21-32 Serum or plasma anion gap determination (moles/volume) 12 mmol/L 5-14 Serum or plasma urea nitrogen measurement (mass/volume ) 34 mg/dL 7-18 Serum or plasma creatinine measurement (mass/volume) 1.24 mg/dL 0.60-1.30 Serum or plasma urea nitrogen/creatinine mass ratio 27 NRG Serum or plasma creatinine measurement w ith calculation of estimated glomerular filtration rate 42 NRG Serum or plasma glucose measurement (mass/volume) 167 mg/dL 70-105 Serum or plasma calcium measurement (mass/volume) 7.9 mg/dL 8.5-10.1 Serum or plasma phosphate measurement (m ass/volume) - 12/09/17 05:20 Serum or plasma phosphate measurement (mass/volume) 4.6 mg/dL 2.3-4.7 Magnesium - 12/09/17 05:20 Magnesium 2.3 mg/dL 1.8-2.4 Capillary blood glucose measurement by g lucometer (mass/volume) - 12/09/17 10:50 Capillary blood glucose measurement by glucometer (mas s/volume) 226 mg/dL 70-110 Capillary blood glucose measurement by g lucometer (mass/volume) - 12/09/17 16:22 Capillary blood glucose measurement by glucometer (mas s/volume) 226 mg/dL 70-110 Capillary blood glucose measurement by g lucometer (mass/volume) - 12/09/17 20:29 Capillary blood glucose measurement by glucometer (mas s/volume) 191 mg/dL 70-110 Capillary blood glucose measurement by g lucometer (mass/volume) - 12/10/17 04:15 Capillary blood glucose measurement by glucometer (mas s/volume) 215 mg/dL 70-110 Capillary blood glucose measurement by g lucometer (mass/volume) - 12/10/17 09:17 Capillary blood glucose measurement by glucometer (mas s/volume) 174 mg/dL 70-110 Capillary blood glucose measurement by g lucometer (mass/volume) - 12/10/17 15:56 Capillary blood glucose measurement by glucometer (mas s/volume) 128 mg/dL 70-110 Capillary blood glucose measurement by g lucometer (mass/volume) - 12/10/17 20:33 Capillary blood glucose measurement by glucometer (mas s/volume) 136 mg/dL 70-110 Complete blood count (CBC) with automate d white blood cell (WBC) differential - 12/11/17 05:05 Blood leukocytes automated count (number/volume) 9.7 10*3/uL 4.3-11.0 Blood erythrocytes automated count (number/volume) 3.14 10*6/uL 4.35-5.85 Venous blood hemoglobin measurement (mass/volume) 8.8 g/dL 11.5-16.0 Blood hematocrit (volume fraction) 28 % 35-52 Automated erythrocyte mean corpuscular volume 90 [ foz_us] 80-99 Automated erythrocyte mean corpuscular h emoglobin (mass per erythrocyte) 28 pg 25-34 Automated erythrocyte mean corpuscular h emoglobin concentration measurement (mass/volume) 31 g/dL 32-36 Automated erythrocyte distribution width ratio 14. 8 % 10.0- 14.5 Automated blood platelet count (count/volume) 387 10*3/uL 130-400 Automated blood platelet mean volume measurement 9.7 [foz_us] 7.4-10.4 Automated blood neutrophils/100 leukocytes 81 % 42-75 Automated blood lymphocytes/100 leukocytes 12 % 12-44 Blood monocytes/100 leukocytes 5 % 0-12 Automated blood eosinophils/100 leukocytes 3 % 0-10 Automated blood basophils/100 leukocytes 0 % 0-10 Blood neutrophils automated count (number/volume) 7.8 10*3 1.8-7.8 Blood lymphocytes automated count (number/volume) 1.1 10*3 1.0-4.0 Blood monocytes automated count (number/volume) 0. 4 10*3 0.0-1.0 Automated eosinophil count 0.3 10*3/uL 0 .0-0.3 Automated blood basophil count (count/volume) 0.0 10*3/uL 0.0-0.1 Whole blood basic metabolic panel - 11/14 11/30 05:05 Serum or plasma sodium measurement (moles/volume) 143 mmol/L 135-145 Serum or plasma potassium measurement (moles/volume) 3.5 mmol/L 3.6-5.0 Serum or plasma chloride measurement (moles/volume) 109 mmol/L 98-107 Carbon dioxide 23 mmol/L 21-32 Serum or plasma anion gap determination (moles/volume) 11 mmol/L 5-14 Serum or plasma urea nitrogen measurement (mass/volume ) 16 mg/dL 7-18 Serum or plasma creatinine measurement (mass/volume) 1.05 mg/dL 0.60-1.30 Serum or plasma urea nitrogen/creatinine mass ratio 15 NRG Serum or plasma creatinine measurement w ith calculation of estimated glomerular filtration rate 51 NRG Serum or plasma glucose measurement (mass/volume) 154 mg/dL 70-105 Serum or plasma calcium measurement (mass/volume) 7.6 mg/dL 8.5-10.1 Magnesium - 12/11/17 05:05 Magnesium 1.8 mg/dL 1.8-2.4 Capillary blood glucose measurement by g lucometer (mass/volume) - 12/11/17 11:03 Capillary blood glucose measurement by glucometer (mas s/volume) 239 mg/dL 70-110 Capillary blood glucose measurement by g lucometer (mass/volume) - 12/11/17 16:21 Capillary blood glucose measurement by glucometer (mas s/volume) 106 mg/dL 70-110 Capillary blood glucose measurement by g lucometer (mass/volume) - 12/11/17 19:49 Capillary blood glucose measurement by glucometer (mas s/volume) 184 mg/dL 70-110 Automated blood complete blood count (he mogram) panel - 12/12/17 05:30 Blood leukocytes automated count (number/volume) 6.1 10*3/uL 4.3-11.0 Blood erythrocytes automated count (number/volume) 2.06 10*6/uL 4.35-5.85 Venous blood hemoglobin measurement (mass/volume) 6.0 g/dL 11.5-16.0 Blood hematocrit (volume fraction) 19 % 35-52 Automated erythrocyte mean corpuscular volume 93 [ foz_us] 80-99 Automated erythrocyte mean corpuscular h emoglobin (mass per erythrocyte) 29 pg 25-34 Automated erythrocyte mean corpuscular h emoglobin concentration measurement (mass/volume) 31 g/dL 32-36 Automated erythrocyte distribution width ratio 14. 7 % 10.0- 14.5 Automated blood platelet count (count/volume) 226 10*3/uL 130-400 Automated blood platelet mean volume measurement 9.4 [foz_us] 7.4-10.4 Whole blood basic metabolic panel - 11/15 05:30 Serum or plasma sodium measurement (moles/volume) 145 mmol/L 135-145 Serum or plasma potassium measurement (moles/volume) 2.5 mmol/L 3.6-5.0 Serum or plasma chloride measurement (moles/volume) 122 mmol/L 98-107 Carbon dioxide 17 mmol/L 21-32 Serum or plasma anion gap determination (moles/volume) 6 mmol/L 5-14 Serum or plasma urea nitrogen measurement (mass/volume ) 9 mg/dL 7-18 Serum or plasma creatinine measurement (mass/volume) 0.68 mg/dL 0.60-1.30 Serum or plasma urea nitrogen/creatinine mass ratio 13 NRG Serum or plasma creatinine measurement w ith calculation of estimated glomerular filtration rate > NRG Serum or plasma glucose measurement (mass/volume) 98 mg/dL 70-105 Serum or plasma calcium measurement (mass/volume) 5.0 mg/dL 8.5-10.1 Serum or plasma lithium measurement (mol es/volume) - 12/12/17 05:30 BNP level 3154.6 pg/mL <100.0 Magnesium - 12/12/17 05:30 Magnesium 1.0 mg/dL 1.8-2.4 Blood type T Indirect antibody screen pa mark - 12/12/17 08:15 ABO+Rh group OP NRG Transfusion band number [id number] NRG Blood group antibody screen NEGATIVE NR G Automated blood complete blood count (he mogram) panel - 12/12/17 08:50 Blood leukocytes automated count (number/volume) 8.5 10*3/uL 4.3-11.0 Blood erythrocytes automated count (number/volume) 3.08 10*6/uL 4.35-5.85 Venous blood hemoglobin measurement (mass/volume) 8.9 g/dL 11.5-16.0 Blood hematocrit (volume fraction) 28 % 35-52 Automated erythrocyte mean corpuscular volume 91 [ foz_us] 80-99 Automated erythrocyte mean corpuscular h emoglobin (mass per erythrocyte) 29 pg 25-34 Automated erythrocyte mean corpuscular h emoglobin concentration measurement (mass/volume) 32 g/dL 32-36 Automated erythrocyte distribution width ratio 14. 9 % 10.0- 14.5 Automated blood platelet count (count/volume) 322 10*3/uL 130-400 Automated blood platelet mean volume measurement 9.6 [foz_us] 7.4-10.4 Whole blood basic metabolic panel - 11/15 08:50 Serum or plasma sodium measurement (moles/volume) 139 mmol/L 135-145 Serum or plasma potassium measurement (moles/volume) 4.4 mmol/L 3.6-5.0 Serum or plasma chloride measurement (moles/volume) 105 mmol/L 98-107 Carbon dioxide 26 mmol/L 21-32 Serum or plasma anion gap determination (moles/volume) 8 mmol/L 5-14 Serum or plasma urea nitrogen measurement (mass/volume ) 13 mg/dL 7-18 Serum or plasma creatinine measurement (mass/volume) 1.24 mg/dL 0.60-1.30 Serum or plasma urea nitrogen/creatinine mass ratio 10 NRG Serum or plasma creatinine measurement w ith calculation of estimated glomerular filtration rate 42 NRG Serum or plasma glucose measurement (mass/volume) 302 mg/dL 70-105 Serum or plasma calcium measurement (mass/volume) 8.1 mg/dL 8.5-10.1 Magnesium - 12/12/17 08:50 Magnesium 1.7 mg/dL 1.8-2.4 Serum or plasma lithium measurement (mol es/volume) - 12/12/17 08:50 BNP level 4523.1 pg/mL <100.0 Capillary blood glucose measurement by g lucometer (mass/volume) - 12/12/17 11:33 Capillary blood glucose measurement by glucometer (mas s/volume) 243 mg/dL 70-110 Capillary blood glucose measurement by g lucometer (mass/volume) - 12/12/17 15:44 Capillary blood glucose measurement by glucometer (mas s/volume) 94 mg/dL 70-110 Capillary blood glucose measurement by g lucometer (mass/volume) - 12/12/17 20:16 Capillary blood glucose measurement by glucometer (mas s/volume) 230 mg/dL 70-110 Automated blood complete blood count (he mogram) panel - 12/13/17 04:40 Blood leukocytes automated count (number/volume) 7.6 10*3/uL 4.3-11.0 Blood erythrocytes automated count (number/volume) 3.04 10*6/uL 4.35-5.85 Venous blood hemoglobin measurement (mass/volume) 8.5 g/dL 11.5-16.0 Blood hematocrit (volume fraction) 28 % 35-52 Automated erythrocyte mean corpuscular volume 91 [ foz_us] 80-99 Automated erythrocyte mean corpuscular h emoglobin (mass per erythrocyte) 28 pg 25-34 Automated erythrocyte mean corpuscular h emoglobin concentration measurement (mass/volume) 31 g/dL 32-36 Automated erythrocyte distribution width ratio 15. 1 % 10.0- 14.5 Automated blood platelet count (count/volume) 336 10*3/uL 130-400 Automated blood platelet mean volume measurement 9.5 [foz_us] 7.4-10.4 Comprehensive metabolic panel - 12/13/17 04:40 Serum or plasma sodium measurement (moles/volume) 140 mmol/L 135-145 Serum or plasma potassium measurement (moles/volume) 3.8 mmol/L 3.6-5.0 Serum or plasma chloride measurement (moles/volume) 104 mmol/L 98-107 Carbon dioxide 27 mmol/L 21-32 Serum or plasma anion gap determination (moles/volume) 9 mmol/L 5-14 Serum or plasma urea nitrogen measurement (mass/volume ) 11 mg/dL 7-18 Serum or plasma creatinine measurement (mass/volume) 1.03 mg/dL 0.60-1.30 Serum or plasma urea nitrogen/creatinine mass ratio 11 NRG Serum or plasma creatinine measurement w ith calculation of estimated glomerular filtration rate 52 NRG Serum or plasma glucose measurement (mass/volume) 87 mg/dL 70-105 Serum or plasma calcium measurement (mass/volume) 8.3 mg/dL 8.5-10.1 Serum or plasma total bilirubin measurement (mass/volu me) 0.4 mg/dL 0.1-1.0 Serum or plasma alkaline phosphatase sonal surement (enzymatic activity/volume) 37 U/L 40-136 Serum or plasma aspartate aminotransfera se measurement (enzymatic activity/volume) 17 U/L 5-34 Serum or plasma alanine aminotransferase measurement (enzymatic activity/volume) 16 U/L 0-55 Serum or plasma protein measurement (mass/volume) 5.2 g/dL 6.4-8.2 Serum or plasma albumin measurement (mass/volume) 3.0 g/dL 3.2-4.5 CALCIUM CORRECTED 9.1 mg/dL 8.5-10.1 Magnesium - 12/13/17 04:40 Magnesium 1.7 mg/dL 1.8-2.4 Serum iron and total iron binding capaci ty panel - 12/13/17 04:40 Serum or plasma iron measurement (mass/volume) 30 % 35-180 Total iron binding capacity and transferrin saturation measurement 15 % 15-50 Iron binding capacity [mass/volume] in serum or plasma 198 % 280-380 UIBC (unsaturated iron binding capacity) 168 % 55-450 Serum or plasma ferritin measurement (mass/volume) 164.7 % 20.0-177.0 Capillary blood glucose measurement by g lucometer (mass/volume) - 12/13/17 11:03 Capillary blood glucose measurement by glucometer (mas s/volume) 256 mg/dL 70-110 Capillary blood glucose measurement by g lucometer (mass/volume) - 12/13/17 16:02 Capillary blood glucose measurement by glucometer (mas s/volume) 101 mg/dL 70-110 Capillary blood glucose measurement by g lucometer (mass/volume) - 12/13/17 20:37 Capillary blood glucose measurement by glucometer (mas s/volume) 156 mg/dL 70-110 Capillary blood glucose measurement by g lucometer (mass/volume) - 12/14/17 06:10 Capillary blood glucose measurement by glucometer (mas s/volume) 149 mg/dL 70-110 Capillary blood glucose measurement by g lucometer (mass/volume) - 12/14/17 11:04 Capillary blood glucose measurement by glucometer (mas s/volume) 233 mg/dL 70-110 Capillary blood glucose measurement by g lucometer (mass/volume) - 12/14/17 16:54 Capillary blood glucose measurement by glucometer (mas s/volume) 63 mg/dL 70-110 Capillary blood glucose measurement by g lucometer (mass/volume) - 12/14/17 17:59 Capillary blood glucose measurement by glucometer (mas s/volume) 97 mg/dL 70-110 Capillary blood glucose measurement by g lucometer (mass/volume) - 12/14/17 21:08 Capillary blood glucose measurement by glucometer (mas s/volume) 137 mg/dL 70-110 Capillary blood glucose measurement by g lucometer (mass/volume) - 12/15/17 06:00 Capillary blood glucose measurement by glucometer (mas s/volume) 108 mg/dL 70-110 Automated blood complete blood count (he mogram) panel - 12/15/17 06:26 Blood leukocytes automated count (number/volume) 8.5 10*3/uL 4.3-11.0 Blood erythrocytes automated count (number/volume) 3.20 10*6/uL 4.35-5.85 Venous blood hemoglobin measurement (mass/volume) 9.1 g/dL 11.5-16.0 Blood hematocrit (volume fraction) 29 % 35-52 Automated erythrocyte mean corpuscular volume 91 [ foz_us] 80-99 Automated erythrocyte mean corpuscular h emoglobin (mass per erythrocyte) 28 pg 25-34 Automated erythrocyte mean corpuscular h emoglobin concentration measurement (mass/volume) 31 g/dL 32-36 Automated erythrocyte distribution width ratio 15. 5 % 10.0- 14.5 Automated blood platelet count (count/volume) 373 10*3/uL 130-400 Automated blood platelet mean volume measurement 9.9 [foz_us] 7.4-10.4 Whole blood basic metabolic panel - 05/30 06:26 Serum or plasma sodium measurement (moles/volume) 140 mmol/L 135-145 Serum or plasma potassium measurement (moles/volume) 4.1 mmol/L 3.6-5.0 Serum or plasma chloride measurement (moles/volume) 102 mmol/L 98-107 Carbon dioxide 27 mmol/L 21-32 Serum or plasma anion gap determination (moles/volume) 11 mmol/L 5-14 Serum or plasma urea nitrogen measurement (mass/volume ) 13 mg/dL 7-18 Serum or plasma creatinine measurement (mass/volume) 1.00 mg/dL 0.60-1.30 Serum or plasma urea nitrogen/creatinine mass ratio 13 NRG Serum or plasma creatinine measurement w ith calculation of estimated glomerular filtration rate 54 NRG Serum or plasma glucose measurement (mass/volume) 102 mg/dL 70-105 Serum or plasma calcium measurement (mass/volume) 8.9 mg/dL 8.5-10.1 Serum or plasma lithium measurement (mol es/volume) - 12/15/17 06:26 BNP level 8140.8 pg/mL <100.0 Capillary blood glucose measurement by g lucometer (mass/volume) - 12/15/17 11:30 Capillary blood glucose measurement by glucometer (mas s/volume) 338 mg/dL 70-110 Capillary blood glucose measurement by g lucometer (mass/volume) - 12/15/17 17:16 Capillary blood glucose measurement by glucometer (mas s/volume) 63 mg/dL 70-110 Capillary blood glucose measurement by g lucometer (mass/volume) - 12/15/17 20:37 Capillary blood glucose measurement by glucometer (mas s/volume) 107 mg/dL 70-110 Capillary blood glucose measurement by g lucometer (mass/volume) - 12/16/17 05:11 Capillary blood glucose measurement by glucometer (mas s/volume) 84 mg/dL 70-110 Automated blood complete blood count (he mogram) panel - 12/16/17 05:35 Blood leukocytes automated count (number/volume) 5.8 10*3/uL 4.3-11.0 Blood erythrocytes automated count (number/volume) 3.11 10*6/uL 4.35-5.85 Venous blood hemoglobin measurement (mass/volume) 9.1 g/dL 11.5-16.0 Blood hematocrit (volume fraction) 28 % 35-52 Automated erythrocyte mean corpuscular volume 91 [ foz_us] 80-99 Automated erythrocyte mean corpuscular h emoglobin (mass per erythrocyte) 29 pg 25-34 Automated erythrocyte mean corpuscular h emoglobin concentration measurement (mass/volume) 32 g/dL 32-36 Automated erythrocyte distribution width ratio 15. 1 % 10.0- 14.5 Automated blood platelet count (count/volume) 351 10*3/uL 130-400 Automated blood platelet mean volume measurement 10.1 [foz_us] 7.4-10.4 Whole blood basic metabolic panel - 06/30 05:35 Serum or plasma sodium measurement (moles/volume) 140 mmol/L 135-145 Serum or plasma potassium measurement (moles/volume) 3.8 mmol/L 3.6-5.0 Serum or plasma chloride measurement (moles/volume) 99 mmol/L 98-107 Carbon dioxide 28 mmol/L 21-32 Serum or plasma anion gap determination (moles/volume) 13 mmol/L 5-14 Serum or plasma urea nitrogen measurement (mass/volume ) 16 mg/dL 7-18 Serum or plasma creatinine measurement (mass/volume) 1.01 mg/dL 0.60-1.30 Serum or plasma urea nitrogen/creatinine mass ratio 16 NRG Serum or plasma creatinine measurement w ith calculation of estimated glomerular filtration rate 53 NRG Serum or plasma glucose measurement (mass/volume) 75 mg/dL 70-105 Serum or plasma calcium measurement (mass/volume) 8.8 mg/dL 8.5-10.1 Magnesium - 12/16/17 05:35 Magnesium 1.8 mg/dL 1.8-2.4 Capillary blood glucose measurement by g lucometer (mass/volume) - 12/16/17 12:11 Capillary blood glucose measurement by glucometer (mas s/volume) 180 mg/dL 70-110 Capillary blood glucose measurement by g lucometer (mass/volume) - 12/16/17 16:52 Capillary blood glucose measurement by glucometer (mas s/volume) 242 mg/dL 70-110 Capillary blood glucose measurement by g lucometer (mass/volume) - 12/16/17 20:50 Capillary blood glucose measurement by glucometer (mas s/volume) 174 mg/dL 70-110 Capillary blood glucose measurement by g lucometer (mass/volume) - 12/17/17 04:17 Capillary blood glucose measurement by glucometer (mas s/volume) 100 mg/dL 70-110 Capillary blood glucose measurement by g lucometer (mass/volume) - 12/17/17 10:56 Capillary blood glucose measurement by glucometer (mas s/volume) 196 mg/dL 70-110 Capillary blood glucose measurement by g lucometer (mass/volume) - 12/17/17 15:41 Capillary blood glucose measurement by glucometer (mas s/volume) 91 mg/dL 70-110 Capillary blood glucose measurement by g lucometer (mass/volume) - 12/17/17 20:31 Capillary blood glucose measurement by glucometer (mas s/volume) 105 mg/dL 70-110 Whole blood hemoglobin and hematocrit pa mark - 12/18/17 05:47 Venous blood hemoglobin measurement (mass/volume) 9.0 g/dL 11.5-16.0 Blood hematocrit (volume fraction) 29 % 35-52 Whole blood basic metabolic panel - 08/30 05:47 Serum or plasma sodium measurement (moles/volume) 139 mmol/L 135-145 Serum or plasma potassium measurement (moles/volume) 3.9 mmol/L 3.6-5.0 Serum or plasma chloride measurement (moles/volume) 101 mmol/L 98-107 Carbon dioxide 26 mmol/L 21-32 Serum or plasma anion gap determination (moles/volume) 12 mmol/L 5-14 Serum or plasma urea nitrogen measurement (mass/volume ) 13 mg/dL 7-18 Serum or plasma creatinine measurement (mass/volume) 1.02 mg/dL 0.60-1.30 Serum or plasma urea nitrogen/creatinine mass ratio 13 NRG Serum or plasma creatinine measurement w ith calculation of estimated glomerular filtration rate 53 NRG Serum or plasma glucose measurement (mass/volume) 121 mg/dL 70-105 Serum or plasma calcium measurement (mass/volume) 8.8 mg/dL 8.5-10.1 Serum or plasma lithium measurement (mol es/volume) - 12/18/17 05:47 BNP level 3037.8 pg/mL <100.0 Capillary blood glucose measurement by g lucometer (mass/volume) - 12/18/17 05:48 Capillary blood glucose measurement by glucometer (mas s/volume) 125 mg/dL 70-110 Capillary blood glucose measurement by g lucometer (mass/volume) - 12/18/17 11:02 Capillary blood glucose measurement by glucometer (mas s/volume) 285 mg/dL 70-110 Capillary blood glucose measurement by g lucometer (mass/volume) - 12/18/17 15:54 Capillary blood glucose measurement by glucometer (mas s/volume) 74 mg/dL 70-110 Capillary blood glucose measurement by g lucometer (mass/volume) - 12/18/17 20:09 Capillary blood glucose measurement by glucometer (mas s/volume) 157 mg/dL 70-110 Capillary blood glucose measurement by g lucometer (mass/volume) - 12/19/17 06:21 Capillary blood glucose measurement by glucometer (mas s/volume) 114 mg/dL 70-110 Capillary blood glucose measurement by g lucometer (mass/volume) - 12/19/17 11:09 Capillary blood glucose measurement by glucometer (mas s/volume) 278 mg/dL 70-110 Capillary blood glucose measurement by g lucometer (mass/volume) - 12/19/17 15:48 Capillary blood glucose measurement by glucometer (mas s/volume) 73 mg/dL 70-110 Capillary blood glucose measurement by g lucometer (mass/volume) - 12/19/17 20:36 Capillary blood glucose measurement by glucometer (mas s/volume) 111 mg/dL 70-110 Capillary blood glucose measurement by g lucometer (mass/volume) - 12/20/17 05:38 Capillary blood glucose measurement by glucometer (mas s/volume) 114 mg/dL 70-110 Whole blood hemoglobin and hematocrit [facility] [place] - 12/20/17 05:49 Venous blood hemoglobin measurement (mass/volume) 9.5 g/dL 11.5-16.0 Blood hematocrit (volume fraction) 30 % 35-52 Whole blood basic metabolic panel - 10/30 05:49 Serum or plasma sodium measurement (moles/volume) 138 mmol/L 135-145 Serum or plasma potassium measurement (moles/volume) 3.9 mmol/L 3.6-5.0 Serum or plasma chloride measurement (moles/volume) 101 mmol/L 98-107 Carbon dioxide 25 mmol/L 21-32 Serum or plasma anion gap determination (moles/volume) 12 mmol/L 5-14 Serum or plasma urea nitrogen measurement (mass/volume ) 14 mg/dL 7-18 Serum or plasma creatinine measurement (mass/volume) 1.02 mg/dL 0.60-1.30 Serum or plasma urea nitrogen/creatinine mass ratio 14 NRG Serum or plasma creatinine measurement w ith calculation of estimated glomerular filtration rate 53 NRG Serum or plasma glucose measurement (mass/volume) 104 mg/dL 70-105 Serum or plasma calcium measurement (mass/volume) 8.8 mg/dL 8.5-10.1 Serum or plasma lithium measurement (mol es/volume) - 12/20/17 05:49 BNP level 2411.4 pg/mL <100.0 Capillary blood glucose measurement by g lucometer (mass/volume) - 12/20/17 11:29 Capillary blood glucose measurement by glucometer (mas s/volume) 276 mg/dL 70-110 Capillary blood glucose measurement by g lucometer (mass/volume) - 12/20/17 16:52 Capillary blood glucose measurement by glucometer (mas s/volume) 120 mg/dL 70-110 Capillary blood glucose measurement by g lucometer (mass/volume) - 12/20/17 20:08 Capillary blood glucose measurement by glucometer (mas s/volume) 195 mg/dL 70-110 Capillary blood glucose measurement by g lucometer (mass/volume) - 12/21/17 05:15 Capillary blood glucose measurement by glucometer (mas s/volume) 112 mg/dL 70-110 Capillary blood glucose measurement by g lucometer (mass/volume) - 12/21/17 10:53 Capillary blood glucose measurement by glucometer (mas s/volume) 289 mg/dL 70-110 Capillary blood glucose measurement by g lucometer (mass/volume) - 03/30/18 09:08 Capillary blood glucose measurement by glucometer (mas s/volume) 141 mg/dL 70-110 Methicillin resistant Staphylococcus aur eus (MRSA) screening culture - 03/30/18 09:20 Methicillin resistant Staphylococcus aureus (MRSA) scr eening culture NEG NRG Complete blood count (CBC) with automate d white blood cell (WBC) differential - 03/30/18 09:25 Blood leukocytes automated count (number/volume) 5.5 10*3/uL 4.3-11.0 Blood erythrocytes automated count (number/volume) 3.87 10*6/uL 4.35-5.85 Venous blood hemoglobin measurement (mass/volume) 11.3 g/dL 11.5-16.0 Blood hematocrit (volume fraction) 34 % 35-52 Automated erythrocyte mean corpuscular volume 87 [ foz_us] 80-99 Automated erythrocyte mean corpuscular h emoglobin (mass per erythrocyte) 29 pg 25-34 Automated erythrocyte mean corpuscular h emoglobin concentration measurement (mass/volume) 33 g/dL 32-36 Automated erythrocyte distribution width ratio 13. 4 % 10.0- 14.5 Automated blood platelet count (count/volume) 346 10*3/uL 130-400 Automated blood platelet mean volume measurement 10.0 [foz_us] 7.4-10.4 Automated blood neutrophils/100 leukocytes 66 % 42-75 Automated blood lymphocytes/100 leukocytes 26 % 12-44 Blood monocytes/100 leukocytes 7 % 0-12 Automated blood eosinophils/100 leukocytes 1 % 0-10 Automated blood basophils/100 leukocytes 1 % 0-10 Blood neutrophils automated count (number/volume) 3.6 10*3 1.8-7.8 Blood lymphocytes automated count (number/volume) 1.4 10*3 1.0-4.0 Blood monocytes automated count (number/volume) 0. 4 10*3 0.0-1.0 Automated eosinophil count 0.1 10*3/uL 0 .0-0.3 Automated blood basophil count (count/volume) 0.0 10*3/uL 0.0-0.1 Comprehensive metabolic panel - 03/30/18 09:25 Serum or plasma sodium measurement (moles/volume) 141 mmol/L 135-145 Serum or plasma potassium measurement (moles/volume) 4.4 mmol/L 3.6-5.0 Serum or plasma chloride measurement (moles/volume) 101 mmol/L 98-107 Carbon dioxide 28 mmol/L 21-32 Serum or plasma anion gap determination (moles/volume) 12 mmol/L 5-14 Serum or plasma urea nitrogen measurement (mass/volume ) 22 mg/dL 7-18 Serum or plasma creatinine measurement (mass/volume) 1.18 mg/dL 0.60-1.30 Serum or plasma urea nitrogen/creatinine mass ratio 19 NRG Serum or plasma creatinine measurement w ith calculation of estimated glomerular filtration rate 44 NRG Serum or plasma glucose measurement (mass/volume) 123 mg/dL 70-105 Serum or plasma calcium measurement (mass/volume) 9.2 mg/dL 8.5-10.1 Serum or plasma total bilirubin measurement (mass/volu me) 0.4 mg/dL 0.1-1.0 Serum or plasma alkaline phosphatase sonal surement (enzymatic activity/volume) 51 U/L 40-136 Serum or plasma aspartate aminotransfera se measurement (enzymatic activity/volume) 11 U/L 5-34 Serum or plasma alanine aminotransferase measurement (enzymatic activity/volume) 7 U/L 0-55 Serum or plasma protein measurement (mass/volume) 6.7 g/dL 6.4-8.2 Serum or plasma albumin measurement (mass/volume) 4.3 g/dL 3.2-4.5 CALCIUM CORRECTED 9.0 mg/dL 8.5-10.1 Serum or plasma amylase measurement (enz ymatic activity/volume) - 04/13/18 12:30 Serum or plasma amylase measurement (enzymatic activit y/volume) 34 U/L 25-125 Lipase - 04/13/18 12:30 Lipase 15 U/L 8-78 Comprehensive metabolic panel - 05/03/18 11:29 Serum or plasma sodium measurement (moles/volume) 139 mmol/L 135-145 Serum or plasma potassium measurement (moles/volume) 4.4 mmol/L 3.6-5.0 Serum or plasma chloride measurement (moles/volume) 103 mmol/L 98-107 Carbon dioxide 26 mmol/L 21-32 Serum or plasma anion gap determination (moles/volume) 10 mmol/L 5-14 Serum or plasma urea nitrogen measurement (mass/volume ) 15 mg/dL 7-18 Serum or plasma creatinine measurement (mass/volume) 1.03 mg/dL 0.60-1.30 Serum or plasma urea nitrogen/creatinine mass ratio 15 NRG Serum or plasma creatinine measurement w ith calculation of estimated glomerular filtration rate 52 NRG Serum or plasma glucose measurement (mass/volume) 104 mg/dL 70-105 Serum or plasma calcium measurement (mass/volume) 9.5 mg/dL 8.5-10.1 Serum or plasma total bilirubin measurement (mass/volu me) 0.5 mg/dL 0.1-1.0 Serum or plasma alkaline phosphatase sonal surement (enzymatic activity/volume) 51 U/L 40-136 Serum or plasma aspartate aminotransfera se measurement (enzymatic activity/volume) 13 U/L 5-34 Serum or plasma alanine aminotransferase measurement (enzymatic activity/volume) 8 U/L 0-55 Serum or plasma protein measurement (mass/volume) 6.5 g/dL 6.4-8.2 Serum or plasma albumin measurement (mass/volume) 4.3 g/dL 3.2-4.5 CALCIUM CORRECTED 9.3 mg/dL 8.5-10.1 Complete blood count (CBC) with automate d white blood cell (WBC) differential - 02/19/19 12:53 Blood leukocytes automated count (number/volume) 7.5 10*3/uL 4.3-11.0 Blood erythrocytes automated count (number/volume) 3.50 10*6/uL 4.35-5.85 Venous blood hemoglobin measurement (mass/volume) 9.2 g/dL 11.5-16.0 Blood hematocrit (volume fraction) 30 % 35-52 Automated erythrocyte mean corpuscular volume 84 [ foz_us] 80-99 Automated erythrocyte mean corpuscular h emoglobin (mass per erythrocyte) 26 pg 25-34 Automated erythrocyte mean corpuscular h emoglobin concentration measurement (mass/volume) 31 g/dL 32-36 Automated erythrocyte distribution width ratio 14. 8 % 10.0- 14.5 Automated blood platelet count (count/volume) 532 10*3/uL 130-400 Automated blood platelet mean volume measurement 9.0 [foz_us] 7.4-10.4 Automated blood neutrophils/100 leukocytes 78 % 42-75 Automated blood lymphocytes/100 leukocytes 16 % 12-44 Blood monocytes/100 leukocytes 4 % 0-12 Automated blood eosinophils/100 leukocytes 0 % 0-10 Automated blood basophils/100 leukocytes 1 % 0-10 Blood neutrophils automated count (number/volume) 5.9 10*3 1.8-7.8 Blood lymphocytes automated count (number/volume) 1.2 10*3 1.0-4.0 Blood monocytes automated count (number/volume) 0. 3 10*3 0.0-1.0 Automated eosinophil count 0.0 10*3/uL 0 .0-0.3 Automated blood basophil count (count/volume) 0.1 10*3/uL 0.0-0.1 PT panel in platelet poor plasma by coag ulation assay - 02/19/19 12:53 Prothrombin time (PT) in platelet poor plasma by coagu lation assay 13.8 s 12.2-14.7 INR in platelet poor plasma or blood by coagulation as say 1.0 0.8-1.4 Comprehensive metabolic panel - 02/19/19 12:53 Serum or plasma sodium measurement (moles/volume) 138 mmol/L 135-145 Serum or plasma potassium measurement (moles/volume) 4.2 mmol/L 3.6-5.0 Serum or plasma chloride measurement (moles/volume) 104 mmol/L 98-107 Carbon dioxide 20 mmol/L 21-32 Serum or plasma anion gap determination (moles/volume) 14 mmol/L 5-14 Serum or plasma urea nitrogen measurement (mass/volume ) 16 mg/dL 7-18 Serum or plasma creatinine measurement (mass/volume) 0.95 mg/dL 0.60-1.30 Serum or plasma urea nitrogen/creatinine mass ratio 17 NRG Serum or plasma creatinine measurement w ith calculation of estimated glomerular filtration rate 57 NRG Serum or plasma glucose measurement (mass/volume) 242 mg/dL 70-105 Serum or plasma calcium measurement (mass/volume) 8.9 mg/dL 8.5-10.1 Serum or plasma total bilirubin measurement (mass/volu me) 0.4 mg/dL 0.1-1.0 Serum or plasma alkaline phosphatase sonal surement (enzymatic activity/volume) 88 U/L 40-136 Serum or plasma aspartate aminotransfera se measurement (enzymatic activity/volume) 11 U/L 5-34 Serum or plasma alanine aminotransferase measurement (enzymatic activity/volume) 14 U/L 0-55 Serum or plasma protein measurement (mass/volume) 6.6 g/dL 6.4-8.2 Serum or plasma albumin measurement (mass/volume) 3.9 g/dL 3.2-4.5 CALCIUM CORRECTED 9.0 mg/dL 8.5-10.1 Fibrin D-dimer FEU measurement in platel et poor plasma (mass/volume) - 02/19/19 12:53 Fibrin D-dimer FEU measurement in platelet poor plasma (mass/volume) 1.35 ug/mL 0.00-0.49 Serum or plasma troponin i.cardiac measu rement (mass/volume) - 02/19/19 12:53 Serum or plasma troponin i.cardiac measurement (mass/v olume) < ng/mL <0.028 [id number] - 02/19/19 12:53 [id number] < 0.30 0.80-2.00 Serum or plasma lithium measurement (mol es/volume) - 02/19/19 12:53 BNP PT 2789.3 pg/mL <100.0 Capillary blood glucose measurement by g lucometer (mass/volume) - 02/19/19 20:16 Capillary blood glucose measurement by glucometer (mas s/volume) 148 mg/dL 70-110 Complete blood count (CBC) with automate d white blood cell (WBC) differential - 02/20/19 04:40 Blood leukocytes automated count (number/volume) 6.1 10*3/uL 4.3-11.0 Blood erythrocytes automated count (number/volume) 3.58 10*6/uL 4.35-5.85 Venous blood hemoglobin measurement (mass/volume) 9.4 g/dL 11.5-16.0 Blood hematocrit (volume fraction) 30 % 35-52 Automated erythrocyte mean corpuscular volume 84 [ foz_us] 80-99 Automated erythrocyte mean corpuscular h emoglobin (mass per erythrocyte) 26 pg 25-34 Automated erythrocyte mean corpuscular h emoglobin concentration measurement (mass/volume) 31 g/dL 32-36 Automated erythrocyte distribution width ratio 14. 7 % 10.0- 14.5 Automated blood platelet count (count/volume) 458 10*3/uL 130-400 Automated blood platelet mean volume measurement 9.7 [foz_us] 7.4-10.4 Automated blood neutrophils/100 leukocytes 74 % 42-75 Automated blood lymphocytes/100 leukocytes 17 % 12-44 Blood monocytes/100 leukocytes 6 % 0-12 Automated blood eosinophils/100 leukocytes 1 % 0-10 Automated blood basophils/100 leukocytes 1 % 0-10 Blood neutrophils automated count (number/volume) 4.5 10*3 1.8-7.8 Blood lymphocytes automated count (number/volume) 1.1 10*3 1.0-4.0 Blood monocytes automated count (number/volume) 0. 4 10*3 0.0-1.0 Automated eosinophil count 0.1 10*3/uL 0 .0-0.3 Automated blood basophil count (count/volume) 0.1 10*3/uL 0.0-0.1 Comprehensive metabolic panel - 02/20/19 04:40 Serum or plasma sodium measurement (moles/volume) 139 mmol/L 135-145 Serum or plasma potassium measurement (moles/volume) 4.0 mmol/L 3.6-5.0 Serum or plasma chloride measurement (moles/volume) 102 mmol/L 98-107 Carbon dioxide 24 mmol/L 21-32 Serum or plasma anion gap determination (moles/volume) 13 mmol/L 5-14 Serum or plasma urea nitrogen measurement (mass/volume ) 13 mg/dL 7-18 Serum or plasma creatinine measurement (mass/volume) 0.93 mg/dL 0.60-1.30 Serum or plasma urea nitrogen/creatinine mass ratio 14 NRG Serum or plasma creatinine measurement w ith calculation of estimated glomerular filtration rate 58 NRG Serum or plasma glucose measurement (mass/volume) 158 mg/dL 70-105 Serum or plasma calcium measurement (mass/volume) 8.7 mg/dL 8.5-10.1 Serum or plasma total bilirubin measurement (mass/volu me) 0.5 mg/dL 0.1-1.0 Serum or plasma alkaline phosphatase sonal surement (enzymatic activity/volume) 82 U/L 40-136 Serum or plasma aspartate aminotransfera se measurement (enzymatic activity/volume) 9 U/L 5-34 Serum or plasma alanine aminotransferase measurement (enzymatic activity/volume) 8 U/L 0-55 Serum or plasma protein measurement (mass/volume) 6.1 g/dL 6.4-8.2 Serum or plasma albumin measurement (mass/volume) 3.7 g/dL 3.2-4.5 CALCIUM CORRECTED 8.9 mg/dL 8.5-10.1 Capillary blood glucose measurement by g lucometer (mass/volume) - 02/20/19 06:05 Capillary blood glucose measurement by glucometer (mas s/volume) 180 mg/dL 70-110 Capillary blood glucose measurement by g lucometer (mass/volume) - 02/20/19 11:09 Capillary blood glucose measurement by glucometer (mas s/volume) 211 mg/dL 70-110 Capillary blood glucose measurement by g lucometer (mass/volume) - 02/20/19 16:32 Capillary blood glucose measurement by glucometer (mas s/volume) 182 mg/dL 70-110 Capillary blood glucose measurement by g lucometer (mass/volume) - 02/20/19 20:51 Capillary blood glucose measurement by glucometer (mas s/volume) 204 mg/dL 70-110 Whole blood basic metabolic panel - 02/12 05:30 Serum or plasma sodium measurement (moles/volume) 137 mmol/L 135-145 Serum or plasma potassium measurement (moles/volume) 3.6 mmol/L 3.6-5.0 Serum or plasma chloride measurement (moles/volume) 98 mmol/L 98-107 Carbon dioxide 24 mmol/L 21-32 Serum or plasma anion gap determination (moles/volume) 15 mmol/L 5-14 Serum or plasma urea nitrogen measurement (mass/volume ) 17 mg/dL 7-18 Serum or plasma creatinine measurement (mass/volume) 0.92 mg/dL 0.60-1.30 Serum or plasma urea nitrogen/creatinine mass ratio 18 NRG Serum or plasma creatinine measurement w ith calculation of estimated glomerular filtration rate 59 NRG Serum or plasma glucose measurement (mass/volume) 146 mg/dL 70-105 Serum or plasma calcium measurement (mass/volume) 8.5 mg/dL 8.5-10.1 Magnesium - 02/21/19 05:30 Magnesium 1.7 mg/dL 1.6-2.4 Capillary blood glucose measurement by g lucometer (mass/volume) - 02/21/19 06:37 Capillary blood glucose measurement by glucometer (mas s/volume) 169 mg/dL 70-110 Capillary blood glucose measurement by g lucometer (mass/volume) - 02/21/19 11:19 Capillary blood glucose measurement by glucometer (mas s/volume) 193 mg/dL 70-110 Encounters ACCT No. Visit Date/Time Discharge Status Pt. Type Provider Facility Loc./Unit Complaint [id number] 02/19/2019 14:45:00 13:31:00 DIS Inpatient BRITNEY LEMUS, LIDIA Camarena Via [address] [id number] 01/20/2019 10:17:00 23:59:59 CLS Outpatient WARNER ESCOBAR Via [facility] RAD PAIN IN RIGHT H AND [id number] 12/30/2018 09:31:00 23:59:59 CLS Outpatient WARNER ESCOBAR Via [facility] RAD LESION OF LIVER [id number] 08/02/2018 09:36:00 23:59:59 CLS Outpatient BLAKE ESCOBAR DO Via [facility] RAD THORACIC DISC H ERNIATION [id number] 06/30/2018 08:38:00 23:59:59 CLS Outpatient BLAKE ESCOBAR DO Via [facility] RAD NEURALGIA, INTE RCOASTAL [id number] 06/06/2018 08:22:00 23:59:59 CLS Outpatient ALLEN DO, J T Vi a [facility] RAD SCREENING [id number] 05/06/2018 09:08:00 23:59:59 CLS Preadmit OPAL BLUE APRN Via [facility] RAD RUQ ABD PAIN FOLLOW UP [id number] 05/03/2018 11:19:00 23:59:59 CLS Outpatient 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 Via [facility] RAD RUQ PAIN, RLQ PAIN, R FLANK PAIN [id number] 04/13/2018 12:21:00 23:59:59 CLS Outpatient RAJEEV CAMILO MD Via [facility] LAB POST OP [id number] 03/30/2018 08:47:00 15:38:00 DIS Outpatient RAJEEV CAMILO MD Via [facility] SDC GALLSTONES [id number] 03/29/2018 11:49:00 14:40:00 DIS Outpatient RAJEEV CAMILO MD Via [facility] PREOP GALLSTONES [id number] 03/28/2018 14:46:00 23:59:59 CLS Outpatient KURTIS DIEGO MD Via [facility] RAD RUQ ABD PAIN,NAUSEA [id number] 03/02/2018 10:04:00 23:59:59 CLS Outpatient RANDY MORRISONP Via [facility] RAD COMPRESSION FX L3 [id number] 02/24/2018 09:56:00 23:59:59 CLS Outpatient RANDY MORRISON 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 Via [facility] RAD LOW BACK PAIN [id number] 12/09/2017 11:21:00 11:30:00 DIS Inpatient JENN NORRIS MD Via [facility] IRF CRITICAL ILLNESS MYOPAT HY [id number] 12/02/2017 04:58:00 11:20:00 DIS Inpatient KURTIS DIEGO MD Via [facility] 4TH RT MULTILOBES PNEUMONIA [id number] 10/13/2017 08:00:00 018 23:59:59 CLS Preadmit TANA OVIEDO MD Via [facility] CR STENT [id number] 10/01/2017 11:22:00 018 00:01:00 DIS Outpatient TANA OVIEDO MD Via [facility] CR STENT [id number] 08/25/2017 05:20:00 018 06:42:00 DIS Emergency DANIAL DO, TUNDE K Vi a [facility] ER PAIN IN LEFT LEG,NOT SL EEPING [id number] 07/14/2017 08:00:00 018 23:59:59 CLS Preadmit TNAA OVIEDO MD Via [facility] CR STENT [id number] 07/09/2017 09:37:00 018 00:01:00 DIS Outpatient TANA OVIEDO MD Via [facility] CR STENT [id number] 05/31/2017 13:00:00 018 23:59:59 CLS Preadmit DEMARIO LOPEZ MD, FACC, FACP CCDS Via [facility] CARD I48.0 PAF [id number] 05/25/2017 04:25:00 018 11:10:00 DIS Inpatient KURTIS DIEGO MD Via [facility] ICU A-FIB RVR, CHEST PAIN,P ULMONARY EDEMA [id number] 02/23/2017 09:00:00 017 23:59:59 CLS Preadmit DEMARIO LOPEZ MD, FACC, FACP CCDS Via [facility] CATH CAD,DM,ANGINA [id number] 02/18/2017 05:32:00 017 14:20:00 DIS Inpatient KURTIS DIEGO MD Via [facility] ICU ACUTE CHF,CHEST PAIN,RE SP DISTRESS [id number] 01/12/2017 07:28:00 23:59:59 CLS Outpatient JOHN LEMUS FACC, DEMARIO BAEZP CC DS Via [facility] CARD I35.0 [id number] 01/08/2017 08:30:00 23:59:59 CLS Outpatient JOHN LEMUS FACDoc, DEMARIO BAEZP CC DS Via [facility] CARD I35.0 [id number] 08/03/2016 14:01:00 23:59:59 CLS Outpatient LAITH BECK MD Via [facility] CARD DISC DISORDER [id number] 03/26/2016 10:00:00 23:59:59 CLS [facility]read[facility], UNCONT ROLLED DIABETES [id number] 12/26/2015 09:46:00 00:01:00 DIS Outpatient [facility], UNCON TROLLED DIABETES [id number] 12/20/2015 07:57:00 23:59:59 CLS Outpatient LAITH BECK MD Via [facility] CARD DISC DISORDER [id number] 11/19/2015 08:55:00 23:59:59 CLS Outpatient VINEET DASILVA Via [facility] CARD [id number] 08/09/2015 10:15:00 23:59:59 CLS Preadmit THOMAS MCGEE MD Via [facility] CARD DIZZINESS, VISUAL KAYE ES SEVERE HEADACHES [id number] 06/03/2015 09:05:00 016 00:01:00 DIS Outpatient THOMAS MCGEE MD Via [facility] DIZZINESS, VISUAL KAYE ES SEVERE HEADACHES [id number] 07/19/2015 07:43:00 08:58:00 DIS Outpatient LAITH BECK MD Via [facility] CARD DISC DISORDER [id number] 07/15/2015 11:45:00 13:42:00 DIS Outpatient LAITH BECK MD Via [facility] CARD DISC DISORDER W/RADICUL OPATHY [id number] 04/01/2015 13:41:00 23:59:59 CLS Outpatient DEMARIO LOPEZ MD, FACC, FACP DS Via [facility] CARD VERITGO [id number] 03/23/2015 12:22:00 15:00:00 DIS Emergency FORMANZORAIDA ERP PROJECT MANAGER Via [facility] ER DIZZINESS/NAUSEA [id number] 01/04/2015 09:15:00 10:15:00 DIS Outpatient LAITH BECK MD Via [facility] CARD OTHER INTERVETREBRAL DI SC DISPLACEMENT [id number] 11/26/2014 07:35:00 015 23:59:59 CLS Outpatient GALE MENDEZ MD Via [facility] RAD RADICULOPATHY [id number] 11/15/2014 09:11:00 015 23:59:59 CLS Outpatient GALE MENDEZ MD Via [facility] RAD RADICULOPATHY [id number] 06/13/2014 08:56:00 015 23:59:59 CLS Outpatient DEMARIO LOPEZ MD, FACC, FACP CC DS Via [facility] RAD BILAT LEG F OOT PAIN, DIABETES [id number] 06/12/2014 08:18:00 015 23:59:59 CLS Outpatient DEMARIO LOPEZ MD, FACC, FACP CC DS Via [facility] CARD CHEST DISCO MFORT, AORTIC STENOSIS [id number] 11/06/2013 09:23:00 014 23:59:59 CLS Outpatient HENRY BAIG MD Via [facility] RAD SCREENING [id number] 06/08/2014 17:37:00 Document Registration [id number] 04/04/2012 15:58:00 Document Registration [id number] 12/30/2011 06:47:00 Document Registration [id number] 08/17/2011 12:51:00 Document Registration [id number] 08/07/2010 12:49:00 Document Registration
== END 2019-02-21 13:31 | disposition home or self-care (01) | DRG 291 ==
LOC: EDUNIT# 12:21 → ER 12:23 → 4TH 14:45
PROVIDERS: ADMIT Internal Medicine; ATTEND Internal Medicine
DX: I13.0 Hypertensive heart and chronic kidney disease with heart failure and stage 1 through stage 4 chronic kidney disease, or unspecified chronic kidney disease (principal); I50.33 Acute on chronic diastolic (congestive) heart failure; E78.00 Pure hypercholesterolemia, unspecified; I25.10 Atherosclerotic heart disease of native coronary artery without angina pectoris; G89.29 Other chronic pain; E11.51 Type 2 diabetes mellitus with diabetic peripheral angiopathy without gangrene; M54.9 Dorsalgia, unspecified; F41.9 Anxiety disorder, unspecified; F32.9 Major depressive disorder, single episode, unspecified; M19.90 Unspecified osteoarthritis, unspecified site; K44.9 Diaphragmatic hernia without obstruction or gangrene; I48.0 Paroxysmal atrial fibrillation; E03.9 Hypothyroidism, unspecified; E78.5 Hyperlipidemia, unspecified; M81.0 Age-related osteoporosis without current pathological fracture; N18.3 Chronic kidney disease, stage 3 (moderate); I65.29 Occlusion and stenosis of unspecified carotid artery; I25.5 Ischemic cardiomyopathy; Z95.5 Presence of coronary angioplasty implant and graft; Z90.710 Acquired absence of both cervix and uterus; Z79.4 Long term (current) use of insulin; Z96.653 Presence of artificial knee joint, bilateral; Z87.440 Personal history of urinary (tract) infections
CPT/HCPCS: 36415; 51702; 71045; 80048; 80053; 80162; 82962; 83735; 83880; 84484; 85025; 85379; 85610; 93005; 93306; 96374

== ENCOUNTER → 2019-03-21 | Outpatient (CLI) | payer MEDICARE ==
[~2019-03-21] MED LIST changes: +ACET-2469 PO; -ACET-2715 PO; +ALLO100T PO; +CRAN450T9 PO; +DIGO250T PO; -DIGO250T3 PO; +MAGN250T2 PO; +METO-387 PO; +METO-395 PO; -MTP100TCR PO; -MTP25TSR PO; +POTA10TA10 PO; +SACU1TAB PO; -SACU1TAB2 PO
--- NOTE | 2019-03-21 11:59 | Diagnostic Imaging Report ---
INDICATION: Pain, arthritis. COMPARISON: January 20, 2019. TECHNIQUE: Six radiographs of the bilateral hands dated March 21, 2019. FINDINGS: Left: No acute fracture or dislocation. No destructive osseous process. Advanced scattered degenerative changes are present, greatest involving the first CMC joint and scattered interphalangeal joints. These degenerative changes demonstrate significant joint space narrowing with osteophyte formation. Several DIP joints, particularly the third and fifth demonstrates a gull-wing appearance. Carpal alignment is well maintained. No suspicious radiopaque foreign body. Right: No acute fracture or dislocation. No destructive osseous process. Advanced scattered degenerative changes are present, greatest involving the first CMC joint and second and fourth DIP joints. Prominent osteophyte formation is present with central erosions and gull-wing deformity associated with the second and fourth DIP joints. Carpal alignment is well maintained. No suspicious radiopaque foreign body. IMPRESSION: No acute osseous abnormality with advanced degenerative changes, greatest involving the first CMC joints and DIP joints. 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 Dictated by: Dictated on workstation # [id number]
== END ==
LOC: RAD 09:34
PROVIDERS: ATTEND Internal Medicine
DX: M19.90 Unspecified osteoarthritis, unspecified site (principal); M79.642 Pain in left hand; M79.641 Pain in right hand

== ENCOUNTER → 2019-05-02 | Outpatient (CLI) | payer MEDICARE ==
[~2019-05-02] VITALS: Ht 160 cm; Wt 66.0 kg
[~2019-05-02] MED LIST changes: -ACET-2469 PO; +ACET-2715 PO; +CATHETER FLUSH 10 ML SYR IV PRN; -DIGO250T PO; +DIGO250T3 PO; -METO-387 PO; -METO-395 PO; +MTP100TCR PO; +MTP25TSR PO; +REGADENOSON 0.4 MG/5 ML SYR (LEXISCAN) IV ONE; -SACU1TAB PO; +SACU1TAB2 PO
--- NOTE | 2019-05-03 12:12 | STRESS TEST ---
DATE OF SERVICE: 05/02/2019 RESTING AND POST REGADENOSON TECHNETIUM-99M TETROFOSMIN SPECT CT IMAGING ORDERING PHYSICIAN: Jacquelyn Garcia APRN PRIMARY PHYSICIAN: Dr. Ramos. CLINICAL DIAGNOSIS: Coronary artery disease. Baseline images were carried out after injection of 10.68 mCi of technetium-99m Tetrofosmin. This was followed by 0.4 mg regadenoson and 29.6 mCi of technetium-99m Tetrofosmin for stress imaging. The electrocardiogram showed sinus rhythm at baseline. There is baseline ST segment abnormality in the anterolateral leads, which became more prominent with regadenoson infusion and slowly returned towards baseline. The patient did not report symptoms. Review of images at rest and following stress indicates an anteroapical perfusion defect that is predominantly fixed. Gated images show anteroapical akinesis. Left ventricular ejection fraction is calculated to be 49%. Left ventricular end diastolic volume is 79 mL. TID is absent (1.15). CONCLUSIONS: 1. This study indicates anteroapical infarction with minimal chris-infarct ischemia. 2. Anteroapical akinesis. 3. Left ventricular ejection fraction is calculated to be 49%. Job ID: [id number] DocumentID: [id number] Dictated Date: 05/03/2019 10:01:36 Elementary Educator Date: 05/03/2019 12:12:07 Dictated By: DEMARIO LOPEZ MD, MA, FACP, FACC,
== END ==
LOC: CARD 11:23
PROVIDERS: ATTEND Nurse Practitioner Family
DX: I21.09 ST elevation (STEMI) myocardial infarction involving other coronary artery of anterior wall (principal); I25.10 Atherosclerotic heart disease of native coronary artery without angina pectoris; R07.9 Chest pain, unspecified; I77.9 Disorder of arteries and arterioles, unspecified; Z79.01 Long term (current) use of anticoagulants; Z79.82 Long term (current) use of aspirin; Z79.899 Other long term (current) drug therapy
CPT/HCPCS: 78452; 93017

== ENCOUNTER 2019-07-25 07:59 | Day surgery (SDC) | payer MEDICARE ==
[2019-07-25] VITALS (9 sets, daily range): BP systolic 120–150; BP diastolic 74–103
[~2019-07-25] VITALS: Ht 190 cm; Wt 67.7 kg
[~2019-07-25 07:59] MED LIST changes: -CATHETER FLUSH 10 ML SYR IV PRN; -REGADENOSON 0.4 MG/5 ML SYR (LEXISCAN) IV ONE
[2019-07-25] MEDS ORDERED: HEParin (CATH LAB) 2,000 ML IV ONE (08:15)
[2019-07-25] MEDS ORDERED: NS IV 1000 ML 1,000 ML ONE ×2 (08:15→15:03)
[2019-07-25] MEDS ORDERED: LIDOCAINE 1% INJ 20 ML 20 ML VIAL ONE (08:15)
--- OUTSIDE RECORDS SUMMARY | 2019-07-25 08:32 | XMS REPORT | Continuity of Care Document ---
Author Organization Unknown Address Unknown Phone Unavailable Allergies Active Description Code Type Severity Reaction Onset Reported/Identified Relationship to Patient Clinical Status Yes No Known Drug Allergies [id number] Drug Allergy Unknown N/A 12/30/2011 Yes canagliflozin [id number] Seamus g Allergy Severe LIGHT HEADED/HE 02/19/2019 Yes liraglutide [id number] Drug Aller gy Severe RAPID HEART RAT 02/19/2019 Yes Nkwthul-Qot-Qin Reductase Inhibitor [id number] Drug Allergy Severe MUSCLE PAIN 02/19/2019 Medications [...] 01/04/2015 LAITH BECK MD Ot Z79.899 OTHER FPC (CURRENT) DRUG THERAPY 01/09/2015 GALE MENDEZ MD [...] FACP CCDS Ot 786.59 03/23/2015 JOHN LEMUS [facility], ALI FACP CCDS Ot 250.00 03/23/2015 JOHN LEMUS [facility], ALI FACP CCDS Ot 424.1 03/23/2015 JOHN LEMUS [facility], ALI FACP CCDS Ot 729.5 03/23/2015 JOHN LEMUS [facility], ALI FACP CCDS Ot 786.09 03/23/2015 JOHN LEMUS [facility], ALI FACP CCDS Ot 786.50 03/23/2015 JOHN LEMUS [facility], ALI FACP CCDS Ot V58.69 03/23/2015 GALE MENDEZ MD Ot 724.4 03/23/2015 GALE MENDEZ MD Ot 722.1 0 03/23/2015 GALE MENDEZ MD Ot 722.5 2 03/23/2015 ZORAIDA FORMAN APRN Ot 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 03/23/2015 ZORAIDA FORMAN APRN Ot N39 .0 URINARY TRACT INFECTION, SITE NOT SPECIF 03/23/2015 ZORAIDA FORMAN MANAGER STORE Ot R11 .0 NAUSEA 04/30/2015 JOHN LEMUS [facility], ALI FACP CCDS Ot I35.0 04/30/2015 JOHN LEMUS [facility], ALI FACP CCDS Ot I65.23 04/30/2015 JOHN LEMUS [facility], ALI FACP CCDS Ot R42 05/07/2015 JOHN LEMUS [facility], ALI FACP CCDS Ot I35.0 05/07/2015 JOHN LEMUS [facility], ALI FACP CCDS Ot I65.23 05/07/2015 JOHN LEMUS [facility], ALI FACP CCDS Ot R42 06/04/2015 THOMAS [...] 07/19/2015 LAITH BECK MD Ot Z79.899 OTHER CENTRAL COMMUNICATIONS SPECIALIST (CURRENT) DRUG THERAPY 07/29/2015 LAITH BECK MD, Ot M51. 16 INTERVERTEBRAL DISC DISORDERS W RADICULO 07/29/2015 LAITH BECK MD, Ot Z53. 8 PROCEDURE AND TREATMENT NOT CARRIED OUT 08/08/2015 THOMAS MCGEE MD Ot I65.23 OCCLUSION AND STENOSIS OF BILATERAL [place] 11/19/2015 BAIVINEET MATHIS RETAIL CONSULTANT Ot I35.0 NONRHEUMATIC AORTIC (VALVE) STENOSIS 11/20/2015 BAIMA, VINEET L RETAIL CONSULTANT Ot I35.0 NONRHEUMATIC AORTIC (VALVE) STENOSIS 11/20/2015 BAIMA, VINEET L RETAIL CONSULTANT Ot I35.0 NONRHEUMATIC AORTIC (VALVE) STENOSIS 12/12/2015 BAIMA, VINEET L RETAIL CONSULTANT Ot I35.0 NONRHEUMATIC AORTIC (VALVE) STENOSIS 12/19/2015 BAIMA, VINEET Hart RETAIL CONSULTANT Ot I35.0 NONRHEUMATIC AORTIC (VALVE) STENOSIS [...] STENOSIS OF BILATERAL [place] 12/20/2015 VINEET DASILVA RETAIL CONSULTANT Ot I35.0 NONRHEUMATIC AORTIC (VALVE) STENOSIS [...] STENOSIS OF BILATERAL [place] 12/26/2015 VINEET DASILVA RETAIL CONSULTANT Ot I35.0 NONRHEUMATIC AORTIC (VALVE) STENOSIS 12/26/2015 [...] STENOSIS OF BILATERAL [place] 12/27/2015 VINEET DASILVA RETAIL CONSULTANT Ot I35.0 NONRHEUMATIC AORTIC (VALVE) STENOSIS 12/27/2015 OPAL BLUE APRN Ot E11.9 TYPE 2 DIABETES MELLITUS WITHOUT COMPLIC 12/27/2015 LAITH BECK MD Ot M51. 16 INTERVERTEBRAL DISC DISORDERS W RADICULO 01/09/2016 LAITH BECK MD Ot M47.816 SPONDYLOSIS W/O MYELOPATHY OR RADICULOPA 01/09/2016 LAITH BECK MD, Ot M51. 16 INTERVERTEBRAL DISC DISORDERS W RADICULO 01/09/2016 LAITH BECK MD, Ot Z79.899 OTHER FPC (CURRENT) DRUG THERAPY 01/28/2016 LAITH BECK MD, Ot M47.816 SPONDYLOSIS W/O MYELOPATHY OR RADICULOPA 01/28/2016 LAITH BECK MD, Ot M51. 16 INTERVERTEBRAL DISC DISORDERS W RADICULO 01/28/2016 LAITH BECK MD, Ot Z79.899 OTHER CENTRAL COMMUNICATIONS SPECIALIST (CURRENT) DRUG THERAPY 02/04/2016 OPAL BLUE APRN Ot E11.9 TYPE 2 DIABETES MELLITUS WITHOUT COMPLIC 02/05/2016 LAITH BECK MD, Ot M47.816 SPONDYLOSIS W/O MYELOPATHY OR RADICULOPA 02/05/2016 LAITH BECK MD, Ot M51. 16 INTERVERTEBRAL DISC DISORDERS W RADICULO 02/05/2016 LAITH BECK MD, Ot Z79.899 OTHER CENTRAL COMMUNICATIONS SPECIALIST (CURRENT) DRUG THERAPY 03/18/2016 OPAL BLUE APRN Ot E11.9 TYPE 2 DIABETES MELLITUS WITHOUT COMPLIC 03/25/2016 OPAL BLUE APRN Ot E11.9 TYPE 2 DIABETES MELLITUS WITHOUT COMPLIC 08/31/2016 LAITH BECK MD, Ot M51. 16 INTERVERTEBRAL DISC DISORDERS W RADICULO 08/31/2016 LAITH BECK MD, Ot Z79. 84 CENTRAL COMMUNICATIONS SPECIALIST (CURRENT) USE OF ORAL HYPOGLYC 08/31/2016 LAITH BECK MD, Ot Z79.899 OTHER FPC (CURRENT) DRUG THERAPY 09/17/2016 LAITH BECK MD, Ot M51. 16 INTERVERTEBRAL DISC DISORDERS W RADICULO 09/17/2016 LAITH BECK MD, Ot Z79. 84 CENTRAL COMMUNICATIONS SPECIALIST (CURRENT) USE OF ORAL HYPOGLYC 09/17/2016 LAITH BECK MD, Ot Z79.899 OTHER CENTRAL COMMUNICATIONS SPECIALIST (CURRENT) DRUG THERAPY 02/01/2017 DEMARIO LOPEZ MD, [...] CHRONIC KIDNEY DISEASE, STAGE 3 (MODERAT 02/17/2017 JONH LEMUS FACC, ALI FACP CCDS Ot R06.09 [...] MD Ot I25.10 ATHSCL HEART DISEASE OF [place] CORONARY 02/18/2017 KURTIS DIEGO MD Ot I25.2 [...] URINARY TRACT INFECTION, SITE NOT SPECIF 02/18/2017 KURITS DIEGO MD, Ot Z79.84 CENTRAL COMMUNICATIONS SPECIALIST (CURRENT) USE OF ORAL HYPOGLYC 02/18/2017 KURTIS [...] MD, Ot I25.10 ATHSCL HEART DISEASE OF [place] CORONARY 05/25/2017 KURTIS DIEGO MD Ot I25.2 [...] (MODERAT 05/25/2017 KURTIS DIEGO MD Ot Z79.84 CENTRAL COMMUNICATIONS SPECIALIST (CURRENT) USE OF ORAL HYPOGLYC 05/25/2017 KURTIS [...] MD Ot I25.10 ATHSCL HEART DISEASE OF [place] CORONARY 05/26/2017 KURTIS DIEGO MD Ot I25.2 [...] (MODERAT 05/26/2017 KURTIS DIEGO MD, Ot Z79.84 CENTRAL COMMUNICATIONS SPECIALIST (CURRENT) USE OF ORAL HYPOGLYC 05/26/2017 KURTIS [...] MD Ot I25.10 ATHSCL HEART DISEASE OF [place] CORONARY 05/26/2017 KURTIS DIEGO MD Ot I25.2 [...] (MODERAT 05/26/2017 KURTIS DIEGO MD Ot Z79.84 FPC (CURRENT) USE OF ORAL HYPOGLYC 05/26/2017 KURTIS [...] K Ot I25.10 ATHSCL HEART DISEASE OF [place] CORONARY 08/25/2017 DANIAL TUNDE Casey Ot M16.12 UNILATERAL PRIMARY OSTEOARTHRITIS, LEFT 08/25/2017 DANIAL TUNDE K Ot M25.552 PAIN IN LEFT HIP 08/25/2017 DANIAL ADAMES TUNDE Casey Ot Z79.4 FPC (CURRENT) USE OF INSULIN 08/25/2017 DANIAL TUNDE K Ot Z79.51 FPC (CURRENT) USE OF INHALED STERO 08/25/2017 DANIAL [...] DO Ot I25.10 ATHSCL HEART DISEASE OF [place] CORONARY 08/27/2017 TUNDE BARROW DO Ot M16.12 UNILATERAL PRIMARY OSTEOARTHRITIS, LEFT 08/27/2017 TUNDE BARROW DO Ot M25.552 PAIN IN LEFT HIP 08/27/2017 TUNDE BARROW DO Ot Z79.4 FPC (CURRENT) USE OF INSULIN 08/27/2017 TUNDE BARROW DO Ot Z79.51 FPC (CURRENT) USE OF INHALED STERO 08/27/2017 TUNDE [...] STENOSIS OF BILATERAL [place] 12/02/2017 VINEET DASILVA RETAIL CONSULTANT Ot I35.0 NONRHEUMATIC AORTIC (VALVE) STENOSIS 12/02/2017 LAITH BECK MD Ot M47.816 SPONDYLOSIS W/O MYELOPATHY OR RADICULOPA 12/02/2017 LAITH BECK MD Ot M51. 16 INTERVERTEBRAL DISC DISORDERS W RADICULO 12/02/2017 LAITH BECK MD Ot Z79.899 OTHER FPC (CURRENT) DRUG THERAPY 12/02/2017 OPAL BLUE MANAGER STORE Ot E11.9 TYPE 2 DIABETES MELLITUS WITHOUT COMPLIC 12/02/2017 LAITH BECK MD Ot M51. 16 INTERVERTEBRAL DISC DISORDERS W RADICULO 12/02/2017 LAITH BECK MD Ot Z79. 84 FPC (CURRENT) USE OF ORAL HYPOGLYC 12/02/2017 LAITH BECK MD Ot Z79.899 OTHER FPC (CURRENT) DRUG THERAPY 12/02/2017 JOHN LEMUS FACC, [...] Ot 786.09 RESPIRATORY ABNORM NEC 12/02/2017 JOHN LEMSU FACC, ALI FACP CCDS Ot 786.59 CHEST [...] STENOSIS OF BILATERAL [place] 12/02/2017 VINEET DASILVA RETAIL CONSULTANT Ot I35.0 NONRHEUMATIC AORTIC (VALVE) STENOSIS 12/02/2017 LAITH BECK MD Ot M47.816 SPONDYLOSIS W/O MYELOPATHY OR RADICULOPA 12/02/2017 LAITH BECK MD Ot M51. 16 INTERVERTEBRAL DISC DISORDERS W RADICULO 12/02/2017 LAITH BECK MD Ot Z79.899 OTHER FPC (CURRENT) DRUG THERAPY 12/02/2017 OPAL BLUE APRN Ot E11.9 TYPE 2 DIABETES MELLITUS WITHOUT COMPLIC 12/02/2017 LAITH BECK MD Ot M51. 16 INTERVERTEBRAL DISC DISORDERS W RADICULO 12/02/2017 LAITH BECK MD Ot Z79. 84 FPC (CURRENT) USE OF ORAL HYPOGLYC 12/02/2017 LAITH BECK MD Ot Z79.899 OTHER FPC (CURRENT) DRUG THERAPY 12/02/2017 JOHN LEMUS FACC, [...] MD Ot I25.10 ATHSCL HEART DISEASE OF [place] CORONARY 12/02/2017 KURTIS DIEGO MD Ot I48.0 [...] RESUSCITATE 12/02/2017 KURTIS DIEGO MD Ot Z79.01 CENTRAL COMMUNICATIONS SPECIALIST (CURRENT) USE OF ANTICOAGULANT 12/02/2017 KURTIS DIEGO MD Ot Z79.84 FPC (CURRENT) USE OF ORAL HYPOGLYC 12/02/2017 KURTIS [...] MD Ot I25.10 ATHSCL HEART DISEASE OF [place] CORONARY 12/03/2017 KURTIS DIEGO MD Ot I48.0 [...] RESUSCITATE 12/03/2017 KURTIS DIEGO MD Ot Z79.01 CENTRAL COMMUNICATIONS SPECIALIST (CURRENT) USE OF ANTICOAGULANT 12/03/2017 KURTIS DIEGO MD Ot Z79.84 CENTRAL COMMUNICATIONS SPECIALIST (CURRENT) USE OF ORAL HYPOGLYC 12/03/2017 KURTIS [...] MD Ot I25.10 ATHSCL HEART DISEASE OF [place] CORONARY 12/03/2017 KURTIS DIEGO MD Ot I48.0 [...] RESUSCITATE 12/03/2017 KURTIS DIEGO MD Ot Z79.01 FPC (CURRENT) USE OF ANTICOAGULANT 12/03/2017 KURTIS DIEGO MD Ot Z79.84 CENTRAL COMMUNICATIONS SPECIALIST (CURRENT) USE OF ORAL HYPOGLYC 12/03/2017 KURTIS [...] MD, Ot I25.10 ATHSCL HEART DISEASE OF [place] CORONARY 12/03/2017 KURTIS DIEGO MD Ot I48.0 [...] RESUSCITATE 12/03/2017 KURTIS DIEGO MD, Ot Z79.01 CENTRAL COMMUNICATIONS SPECIALIST (CURRENT) USE OF ANTICOAGULANT 12/03/2017 KURTIS DIEGO MD Ot Z79.84 CENTRAL COMMUNICATIONS SPECIALIST (CURRENT) USE OF ORAL HYPOGLYC 12/03/2017 KURTIS [...] MD Ot I25.10 ATHSCL HEART DISEASE OF [place] CORONARY 12/04/2017 KURTIS DIEGO MD Ot I48.0 [...] RESUSCITATE 12/04/2017 KURTIS DIEGO MD Ot Z79.01 CENTRAL COMMUNICATIONS SPECIALIST (CURRENT) USE OF ANTICOAGULANT 12/04/2017 KURTIS DIEGO MD Ot Z79.84 FPC (CURRENT) USE OF ORAL HYPOGLYC 12/04/2017 KURTIS DIEGO MD Ot Z95.5 PRESENCE OF CORONARY ANGIOPLASTY IMPLANT 12/04/2017 KURTIS DIEGO MD Ot Z96.653 PRESENCE OF ARTIFICIAL KNEE JOINT, BILAT 12/05/2017 KURTIS DIEGO MD Ot A41.9 SEPSIS, UNSPECIFIED ORGANISM 12/05/2017 KURTIS DIEGO MD Ot D64.9 ANEMIA, UNSPECIFIED 12/05/2017 KURTIS DIEGO MD Ot E03.9 HYPOTHYROIDISM, UNSPECIFIED 12/05/2017 KURTIS [...] MD Ot I25.10 ATHSCL HEART DISEASE OF [place] CORONARY 12/05/2017 KURTIS DIEGO MD Ot I48.0 PAROXYSMAL ATRIAL FIBRILLATION 12/05/2017 KURTIS DIEGO MD Ot I50.32 CHRONIC DIASTOLIC (CONGESTIVE) HEART YAMILET 12/05/2017 UKRTIS DIEGO MD Ot I65.23 OCCLUSION AND STENOSIS [...] RESUSCITATE 12/05/2017 KURTIS DIEGO MD Ot Z79.01 CENTRAL COMMUNICATIONS SPECIALIST (CURRENT) USE OF ANTICOAGULANT 12/05/2017 KURTIS DIEGO MD Ot Z79.84 CENTRAL COMMUNICATIONS SPECIALIST (CURRENT) USE OF ORAL HYPOGLYC 12/05/2017 KURTIS [...] Ot E78.00 PURE HYPERCHOLESTEROLEMIA, UNSPECIFIED 12/06/2017 KURTIS IDEGO MD Ot E86.0 DEHYDRATION 12/06/2017 KURTIS DIEGO MD Ot F32.9 MAJOR DEPRESSIVE DISORDER, SINGLE EPISOD 12/06/2017 KURTIS DIEGO MD Ot F41.9 ANXIETY DISORDER, UNSPECIFIED 12/06/2017 KURTIS DIEGO MD Ot 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 12/06/2017 KURTIS DIEGO MD Ot I11.0 HYPERTENSIVE HEART DISEASE WITH HEART FA 12/06/2017 KURTIS DIEGO MD Ot I25.10 ATHSCL HEART DISEASE OF [place] CORONARY 12/06/2017 KURTIS DIEGO MD Ot I48.0 PAROXYSMAL ATRIAL FIBRILLATION 12/06/2017 KURTIS DIEGO MD Ot I50.32 CHRONIC DIASTOLIC (CONGESTIVE) HEART YAMILET 12/06/2017 KURTIS DIEGO MD Ot I65.23 OCCLUSION AND STENOSIS OF BILATERAL [place] 12/06/2017 KURTIS DIEGO MD Ot J18.9 PNEUMONIA, UNSPECIFIED ORGANISM 12/06/2017 KURTSI DIEGO MD Ot J30.2 OTHER SEASONAL ALLERGIC [...] RESUSCITATE 12/06/2017 KURTIS DIEGO MD Ot Z79.01 FPC (CURRENT) USE OF ANTICOAGULANT 12/06/2017 KURTIS DIEGO MD Ot Z79.84 FPC (CURRENT) USE OF ORAL HYPOGLYC 12/06/2017 KURTIS [...] HEART DISEASE WITH HEART FA 12/07/2017 KURTIS IDEGO MD Ot I25.10 ATHSCL HEART DISEASE OF [place] CORONARY 12/07/2017 KURTIS DIEGO MD Ot I48.0 [...] RESUSCITATE 12/07/2017 KURTIS DIEGO MD Ot Z79.01 FPC (CURRENT) USE OF ANTICOAGULANT 12/07/2017 KURTIS DIEGO MD Ot Z79.84 FPC (CURRENT) USE OF ORAL HYPOGLYC 12/07/2017 KURTIS [...] MD Ot I25.10 ATHSCL HEART DISEASE OF [place] CORONARY 12/08/2017 KURTIS DIEGO MD Ot I48.0 [...] RESUSCITATE 12/08/2017 KURTIS DIEGO MD Ot Z79.01 CENTRAL COMMUNICATIONS SPECIALIST (CURRENT) USE OF ANTICOAGULANT 12/08/2017 KURTIS DIEGO MD Ot Z79.84 FPC (CURRENT) USE OF ORAL HYPOGLYC 12/08/2017 KURTIS DIEGO MD Ot Z95.5 PRESENCE OF CORONARY ANGIOPLASTY IMPLANT 12/08/2017 KURTIS DIEGO MD Ot Z96.653 PRESENCE OF ARTIFICIAL KNEE JOINT, BILAT 12/08/2017 KURTIS IDEGO MD Ot A41.9 SEPSIS, UNSPECIFIED ORGANISM 12/08/2017 [...] MD Ot I25.10 ATHSCL HEART DISEASE OF [place] CORONARY 12/08/2017 KURTIS DIEGO MD Ot I48.0 [...] RESUSCITATE 12/08/2017 KURTIS DIEGO MD Ot Z79.01 FPC (CURRENT) USE OF ANTICOAGULANT 12/08/2017 KURTIS DIEGO MD Ot Z79.84 CENTRAL COMMUNICATIONS SPECIALIST (CURRENT) USE OF ORAL HYPOGLYC 12/08/2017 KURTIS [...] MD Ot I25.10 ATHSCL HEART DISEASE OF [place] CORONARY 12/09/2017 KURTIS DIEGO MD Ot I48.0 [...] RESUSCITATE 12/09/2017 KURTIS DIEGO MD Ot Z79.01 FPC (CURRENT) USE OF ANTICOAGULANT 12/09/2017 KURTIS DIEGO MD Ot Z79.84 FPC (CURRENT) USE OF ORAL HYPOGLYC 12/09/2017 KURTIS [...] MD Ot I25.10 ATHSCL HEART DISEASE OF [place] CORONARY 12/09/2017 KURTIS DIEGO MD Ot I48.0 [...] RESUSCITATE 12/09/2017 KURTIS DIEGO MD Ot Z79.01 FPC (CURRENT) USE OF ANTICOAGULANT 12/09/2017 KURTIS DIEGO MD Ot Z79.84 FPC (CURRENT) USE OF ORAL HYPOGLYC 12/09/2017 KURTIS [...] STENOSIS OF BILATERAL [place] 12/09/2017 VINEET DASILVA RETAIL CONSULTANT Ot I35.0 NONRHEUMATIC AORTIC (VALVE) STENOSIS 12/09/2017 KIRAN LEMUS, LAITH Bae Ot M47.816 SPONDYLOSIS W/O MYELOPATHY OR RADICULOPA 12/09/2017 LAITH BECK MD Ot M51. 16 INTERVERTEBRAL DISC DISORDERS W RADICULO 12/09/2017 LAITH BECK MD Ot Z79.899 OTHER FPC (CURRENT) DRUG THERAPY 12/09/2017 OPAL BLUE ISABEL Ot E11.9 TYPE 2 DIABETES MELLITUS WITHOUT COMPLIC 12/09/2017 LAITH BECK MD Ot M51. 16 INTERVERTEBRAL DISC DISORDERS W RADICULO 12/09/2017 LAITH BECK MD Ot Z79. 84 CENTRAL COMMUNICATIONS SPECIALIST (CURRENT) USE OF ORAL HYPOGLYC 12/09/2017 LAITH BECK MD Ot Z79.899 OTHER FPC (CURRENT) DRUG THERAPY 12/09/2017 JOHN LEMUS FACC, [...] MD Ot I25.10 ATHSCL HEART DISEASE OF [place] CORONARY 12/09/2017 KURTIS DIEGO MD Ot I48.0 [...] RESUSCITATE 12/09/2017 KURTIS DIEGO MD, Ot Z79.01 CENTRAL COMMUNICATIONS SPECIALIST (CURRENT) USE OF ANTICOAGULANT 12/09/2017 KURTIS DIEGO MD Ot Z79.84 FPC (CURRENT) USE OF ORAL HYPOGLYC 12/09/2017 KURTIS DIEGO MD Ot Z95.5 PRESENCE OF CORONARY ANGIOPLASTY IMPLANT 12/09/2017 KURTIS DIEGO MD Ot Z96.653 PRESENCE OF ARTIFICIAL KNEE JOINT, BILAT 12/21/2017 JENN NORRIS MD E Ot D64.9 ANEMIA, UNSPECIFIED 12/21/2017 JENN NORRSI MD E Ot E03.9 HYPOTHYROIDISM, UNSPECIFIED 12/21/2017 [...] Ot I25.1 0 ATHSCL HEART DISEASE OF [place] CORONARY 12/21/2017 JENN NORRIS MD Ot I25.5 [...] OFF TOILET W/O STRIKE AGAIN 12/21/2017 JENN NORRIS MD Ot Z79.4 FPC (CURRENT) USE OF INSULIN 12/21/2017 JENN NORRIS [...] OF OTHER SITES 03/08/2018 MORRISON, RANDY M RETAIL CONSULTANT Ot M46.87 OTH INFLAMMATORY SPONDYLOPATHIES, LUMBOS 03/08/2018 TAMIKO RANDY Camarena RETAIL CONSULTANT Ot M47.816 SPONDYLOSIS W/O MYELOPATHY OR RADICULOPA 03/08/2018 TAMIKO RANDY M RETAIL CONSULTANT Ot M48.07 SPINAL STENOSIS, LUMBOSACRAL REGION 03/08/2018 TAMIKO RANDY Migue RETAIL CONSULTANT Ot M51.27 OTHER INTERVERTEBRAL DISC DISPLACEMENT, 03/08/2018 TAMIKO RANDY M RETAIL CONSULTANT Ot M51.36 OTHER INTERVERTEBRAL DISC DEGENERATION, 03/17/2018 TAMIKO RANDY Migue RETAIL CONSULTANT Ot S32.030A WEDGE COMPRESSION FRACTURE OF THIRD LUMB 03/23/2018 RANDY MORRISON RETAIL CONSULTANT Ot 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 03/23/2018 TAMIKO RANDY M RETAIL CONSULTANT Ot M46.87 OTH INFLAMMATORY SPONDYLOPATHIES, LUMBOS 03/23/2018 TAMIKO RANDY M RETAIL CONSULTANT Ot M47.816 SPONDYLOSIS W/O MYELOPATHY OR RADICULOPA 03/23/2018 RANDY MORRISON RETAIL CONSULTANT Ot M48.07 SPINAL STENOSIS, LUMBOSACRAL REGION 03/23/2018 TAMIKO RANDY M RETAIL CONSULTANT Ot M51.27 OTHER INTERVERTEBRAL DISC DISPLACEMENT, 03/23/2018 TAMIKO RANDY M RETAIL CONSULTANT Ot M51.36 OTHER INTERVERTEBRAL DISC DEGENERATION, 03/29/2018 BRANDIE LEMUS, KURTIS Phillips Ot K80.20 CALCULUS OF GALLBLADDER W/O CHOLECYSTITI 03/29/2018 LESLEE LEMUS, RAJEEV Camarena Ot Z01.818 ENCOUNTER [...] MD Ot I25.10 ATHSCL HEART DISEASE OF [place] CORONARY 03/30/2018 RAJEEV CAMILO MD Ot I65.29 OCCLUSION AND STENOSIS OF UNSPECIFIED CA 03/30/2018 RAJEEV CAMILO MD Ot K21.9 GASTRO-ESOPHAGEAL REFLUX DISEASE WITHOUT 03/30/2018 RAJEEV CAMILO MD Ot K44.9 DIAPHRAGMATIC HERNIA WITHOUT OBSTRUCTION 03/30/2018 RAJEEV CAMILO MD Ot K80.10 CALCULUS OF GALLBLADDER W CHRONIC CHOLEC 03/30/2018 RAJEEV CAMILO MD, Ot M06.9 RHEUMATOID ARTHRITIS, UNSPECIFIED 03/30/2018 RAJEEV CAMILO MD Ot Z79.01 CENTRAL COMMUNICATIONS SPECIALIST (CURRENT) USE OF ANTICOAGULANT 03/30/2018 RAJEEV CAMILO MD Ot Z79.82 FPC (CURRENT) USE OF ASPIRIN 03/30/2018 RAJEEV CAMILO MD Ot Z79.84 CENTRAL COMMUNICATIONS SPECIALIST (CURRENT) USE OF ORAL HYPOGLYC 03/30/2018 RAJEEV CAMILO MD Ot Z79.899 OTHER FPC (CURRENT) DRUG THERAPY 03/30/2018 RAJEEV CAMILO MD [...] MD Ot I25.10 ATHSCL HEART DISEASE OF [place] CORONARY 04/04/2018 LESLEE LEMUS, RAJEEV Camarena Ot I65.29 OCCLUSION AND STENOSIS OF UNSPECIFIED CA 04/04/2018 RAJEEV CAMILO MD Ot K21.9 GASTRO-ESOPHAGEAL REFLUX DISEASE WITHOUT 04/04/2018 RAJEEV CAMILO MD Ot K44.9 DIAPHRAGMATIC HERNIA WITHOUT OBSTRUCTION 04/04/2018 RAJEEV CAMILO MD Ot K80.10 CALCULUS OF GALLBLADDER W CHRONIC CHOLEC 04/04/2018 RAJEEV CAMILO MD Ot M06.9 RHEUMATOID ARTHRITIS, UNSPECIFIED 04/04/2018 RAJEEV CAMILO MD Ot Z79.82 FPC (CURRENT) USE OF ASPIRIN 04/04/2018 RAJEEV CAMILO MD Ot Z79.84 FPC (CURRENT) USE OF ORAL HYPOGLYC 04/04/2018 RAJEEV CAMILO MD Ot Z79.899 OTHER FPC (CURRENT) DRUG THERAPY 04/04/2018 RAJEEV CAMILO MD [...] M51.36 OTHER INTERVERTEBRAL DISC DEGENERATION, 04/19/2018 BRANDIE LMEUS, KURTIS Phillips Ot K80.20 CALCULUS OF GALLBLADDER W/O CHOLECYSTITI 05/04/2018 SU, OPAL M MANAGER STORE Ot K57.30 DVRTCLOS OF LG INT W/O [...] RAJEEV Camarena Ot R11.0 NAUSEA 05/04/2018 LESLEE LEUMS, RAJEEV Camarena Ot Z98.890 OTHER SPECIFIED POSTPROCEDURAL STATES 05/05/2018 BRANDIE LEMUS, KURTSI Phillips Ot K80.20 CALCULUS OF GALLBLADDER W/O [...] STENOSIS OF BILATERAL [place] 06/29/2018 VINEET DASILVA RETAIL CONSULTANT Ot I35.0 NONRHEUMATIC AORTIC (VALVE) STENOSIS 06/29/2018 LAITH BECK MD Ot M47.816 SPONDYLOSIS W/O MYELOPATHY OR RADICULOPA 06/29/2018 LAITH BECK MD Ot M51. 16 INTERVERTEBRAL DISC DISORDERS W RADICULO 06/29/2018 LAITH BECK MD Ot Z79.899 OTHER CENTRAL COMMUNICATIONS SPECIALIST (CURRENT) DRUG THERAPY 06/29/2018 OPAL BLUE APRN Ot E11.9 TYPE 2 DIABETES MELLITUS WITHOUT COMPLIC 06/29/2018 LAITH BECK MD Ot M51. 16 INTERVERTEBRAL DISC DISORDERS W RADICULO 06/29/2018 LAITH BECK MD Ot Z79. 84 CENTRAL COMMUNICATIONS SPECIALIST (CURRENT) USE OF ORAL HYPOGLYC 06/29/2018 LAITH BECK MD Ot Z79.899 OTHER FPC (CURRENT) DRUG THERAPY 06/29/2018 JOHN LEMUS FACC, ALI FACP CCDS Ot E13.9 OTHER SPECIFIED DIABETES MELLITUS WITHOU 06/29/2018 JOHN LEMUS FACC, ALI FACP CCDS Ot I35.0 NONRHEUMATIC AORTIC (VALVE) STENOSIS 06/29/2018 JOHN LEMUS FACC, ALI FACP CCDS Ot I65.23 OCCLUSION AND STENOSIS OF BILATERAL [place] 06/29/2018 JOHN LMEUS FACC, ALI FACP CCDS Ot N18.3 CHRONIC [...] OF CORONARY ANGIOPLASTY IMPLANT 06/29/2018 RANDY MORRISON RETAIL CONSULTANT Ot S32.030A WEDGE COMPRESSION FRACTURE OF THIRD LUMB 06/29/2018 RANDY MORRISON RETAIL CONSULTANT Ot 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 06/29/2018 RANDY MORRISON RETAIL CONSULTANT Ot M46.87 OTH INFLAMMATORY SPONDYLOPATHIES, LUMBOS 06/29/2018 RANDY OMRRISON RETAIL CONSULTANT Ot M47.816 SPONDYLOSIS W/O MYELOPATHY OR RADICULOPA 06/29/2018 RANDY MORRISON RETAIL CONSULTANT Ot M48.07 SPINAL STENOSIS, LUMBOSACRAL REGION 06/29/2018 RANDY MORRISON RETAIL CONSULTANT Ot M51.27 OTHER INTERVERTEBRAL DISC DISPLACEMENT, 06/29/2018 RANDY MORRISON RETAIL CONSULTANT Ot M51.36 OTHER INTERVERTEBRAL DISC DEGENERATION, 06/29/2018 BRANDIE LEMUS, KURTIS Phillips Ot K80.20 CALCULUS OF GALLBLADDER W/O CHOLECYSTITI 06/29/2018 LESLEE LEMUS, RAJEEV Camarena Ot R10.11 RIGHT UPPER QUADRANT PAIN 06/29/2018 LESLEE LEMUS, RAJEEV Camarena Ot R11.0 NAUSEA 06/29/2018 LESLEE LEMUS, RAJEEV Camarena Ot Z98.890 OTHER SPECIFIED POSTPROCEDURAL STATES 06/29/2018 OPAL BLUE APRN Ot K57.30 DVRTCLOS OF LG INT W/O PERFORATION OR AB 06/29/2018 OPAL BLUE APRN Ot K63.89 OTHER SPECIFIED DISEASES OF INTESTINE 06/29/2018 OPAL BLUE MANAGER STORE Ot K76.0 FATTY (CHANGE OF) LIVER, NOT [...] DO, Ot I25.10 ATHSCL HEART DISEASE OF [place] CORONARY 07/01/2018 BLAKE ESCOBAR DO Ot I35.0 [...] 12/30/2018 SAFIA LEMUS, HENRY Camarena Ot V76.12 [facility] SCREEN MAMMO-MALIGN NEOPLASM OF JOSE 12/30/2018 Ot [...] STENOSIS OF BILATERAL [place] 12/30/2018 VINEET DASILVA RETAIL CONSULTANT Ot I35.0 NONRHEUMATIC AORTIC (VALVE) STENOSIS 12/30/2018 LAITH BECK MD Ot M47.816 SPONDYLOSIS W/O MYELOPATHY OR RADICULOPA 12/30/2018 LAITH BECK MD, Ot M51. 16 INTERVERTEBRAL DISC DISORDERS W RADICULO 12/30/2018 LAITH BECK MD, Ot Z79.899 OTHER CENTRAL COMMUNICATIONS SPECIALIST (CURRENT) DRUG THERAPY 12/30/2018 OPAL BLUE APRN Ot E11.9 TYPE 2 DIABETES MELLITUS WITHOUT COMPLIC 12/30/2018 LAITH BECK MD, Ot M51. 16 INTERVERTEBRAL DISC DISORDERS W RADICULO 12/30/2018 LAITH BECK MD Ot Z79. 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 12/30/2018 RANDY MORRISON RETAIL CONSULTANT Ot M46.87 OTH INFLAMMATORY SPONDYLOPATHIES, LUMBOS 12/30/2018 RANDY MORRISON RETAIL CONSULTANT Ot M47.816 SPONDYLOSIS W/O MYELOPATHY OR RADICULOPA 12/30/2018 RANDY MORRISON RETAIL CONSULTANT Ot M48.07 SPINAL STENOSIS, LUMBOSACRAL REGION 12/30/2018 RANDY MORRISON RETAIL CONSULTANT Ot M51.27 OTHER INTERVERTEBRAL DISC DISPLACEMENT, 12/30/2018 RANDY MORRISON RETAIL CONSULTANT Ot M51.36 OTHER INTERVERTEBRAL DISC DEGENERATION, 12/30/2018 BRANDIE LEMUS, KURTIS Phlilips Ot K80.20 CALCULUS OF GALLBLADDER W/O CHOLECYSTITI [...] DO Ot I25.10 ATHSCL HEART DISEASE OF [place] CORONARY 12/30/2018 BLAKE ESCOBAR DO Ot I35.0 [...] Z78.0 ASYMPTOMATIC MENOPAUSAL STATE 01/03/2019 WARNER ESCOBAR RETAIL CONSULTANT Ot K76.9 LIVER DISEASE, UNSPECIFIED 01/05/2019 DEV ESCOBARIA Hailey RETAIL CONSULTANT Ot K76.9 LIVER DISEASE, UNSPECIFIED 01/19/2019 DEV ESCOBARIA Hailey RETAIL CONSULTANT Ot K76.9 LIVER DISEASE, UNSPECIFIED 02/14/2019 DEV ESCOBARIA Hailey RETAIL CONSULTANT Ot M19.041 PRIMARY OSTEOARTHRITIS, RIGHT HAND 02/14/2019 WARNER ESCOBAR RETAIL CONSULTANT Ot M25.50 PAIN IN UNSPECIFIED JOINT 02/14/2019 DEV ESCOBARIA Hailey RETAIL CONSULTANT Ot M79.18 MYALGIA, OTHER SITE 02/19/2019 EVERARDO [...] Ot I25. 10 ATHSCL HEART DISEASE OF [place] CORONARY 02/21/2019 LIDIA TAN MD, Ot I25. 5 ISCHEMIC CARDIOMYOPATHY 02/21/2019 LIDIA TAN MD Ot I48. 0 PAROXYSMAL ATRIAL FIBRILLATION 02/21/2019 LIDIA ATN MD Ot I50. 33 ACUTE ON CHRONIC [...] 02/21/2019 LIDIA TAN MD Ot Z79. 4 CENTRAL COMMUNICATIONS SPECIALIST (CURRENT) USE OF INSULIN 02/21/2019 LIDIA TAN MD Ot Z87.440 PERSONAL HISTORY OF URINARY (TRACT) INFE 02/21/2019 LIDIA TAN MD Ot Z90.710 ACQUIRED ABSENCE OF BOTH CERVIX AND UTER 02/21/2019 LIDIA TAN MD Ot Z95. 5 PRESENCE OF CORONARY ANGIOPLASTY IMPLANT 02/21/2019 BRITNEY LEMUS, LIDIA Camarena Ot Z96.653 PRESENCE OF ARTIFICIAL KNEE JOINT, BILAT 03/26/2019 ESCOBAR DO, BLAKE J Ot M19.90 UNSPECIFIED OSTEOARTHRITIS, UNSPECIFIED 03/26/2019 ESCOBAR DO, BLAKE J Ot M79.641 PAIN IN RIGHT HAND 03/26/2019 ESCOBAR DO, BLAKE J Ot M79.642 PAIN IN LEFT HAND 03/28/2019 ESCOBAR DO, BLAKE J Ot M19.90 UNSPECIFIED OSTEOARTHRITIS, UNSPECIFIED 03/28/2019 ESCOBAR DO, BLAKE J Ot M79.641 PAIN IN RIGHT HAND 03/28/2019 ESCOBAR DO, BLAKE J Ot M79.642 PAIN IN LEFT HAND 04/21/2019 ESCOBAR DO, BLAKE J Ot M19.90 UNSPECIFIED OSTEOARTHRITIS, UNSPECIFIED 04/21/2019 ESCOBAR DO, BLAKE J Ot M79.641 PAIN IN RIGHT HAND 04/21/2019 ESCOBAR DO, BLAKE J Ot M79.642 PAIN IN LEFT HAND 05/03/2019 VINEET DASILVA L RETAIL CONSULTANT Ot 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 A 05/03/2019 VINEET DASILVA L RETAIL CONSULTANT Ot I25.10 ATHSCL HEART DISEASE OF [place] CORONARY 05/03/2019 VINEET DASILVA L RETAIL CONSULTANT Ot I77.9 DISORDER OF ARTERIES AND ARTERIOLES, UNS 05/03/2019 VINEET DASILVA L RETAIL CONSULTANT Ot R07.9 CHEST PAIN, UNSPECIFIED 05/03/2019 VINEET DASILVA L RETAIL CONSULTANT Ot Z79.01 FPC (CURRENT) USE OF ANTICOAGULANT 05/03/2019 VINEET DASILVA L RETAIL CONSULTANT Ot Z79.82 FPC (CURRENT) USE OF ASPIRIN 05/03/2019 VINEET DASILVA L RETAIL CONSULTANT Ot Z79.899 OTHER CENTRAL COMMUNICATIONS SPECIALIST (CURRENT) DRUG THERAPY 05/24/2019 VINEET DASILVA L RETAIL CONSULTANT Ot 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 A 05/24/2019 VINEET DASILVA L RETAIL CONSULTANT Ot I25.10 ATHSCL HEART DISEASE OF [place] CORONARY 05/24/2019 VINEET DASILVA L RETAIL CONSULTANT Ot I77.9 DISORDER OF ARTERIES AND ARTERIOLES, UNS 05/24/2019 VINEET DASILVA RETAIL CONSULTANT Ot R07.9 CHEST PAIN, UNSPECIFIED 05/24/2019 VINEET DASILVAP Ot Z79.01 FPC (CURRENT) USE OF ANTICOAGULANT 05/24/2019 VINEET DASILVA RETAIL CONSULTANT Ot Z79.82 CENTRAL COMMUNICATIONS SPECIALIST (CURRENT) USE OF ASPIRIN 05/24/2019 VINEET DASILVAP Ot Z79.899 OTHER FPC (CURRENT) DRUG THERAPY Procedures Code Description Performed By Per formed On [id number] [place] ASURE OF CARDIAC SAMPL PRESSURE, L H 02/18/2017 [id number] FL UOROSCOPY OF MULT COR ART USING L OSM 02/18/2017 [id number] FL UOROSCOPY OF LEFT HEART USING LOW OSMO 02/18/2017 [id number] FL UOROSCOPY OF ABDOMINAL AORTA USING LOW 02/18/2017 [id number] RE SPIRATORY VENTILATION, 24- 96 CONSECUTI 12/02/[id number] LOPES OF LEFT UPPER LUNG LOBE, ENDO, 12/03/2017 [id number] EX TRACTION OF LEFT UPPER LOBE BRONCHUS, 12/03/2017 [id number] EX CISION OF STOMACH, PYLORUS, ENDO, DIAG [...] culture - 02/18/17 05:32 Bacterial urine culture [id number] NRG COLONY COUNT >100,000/ML NRG FTX;REPORTABLE 3 DIFFERENT COLONY TYPES OBSERVED NRG URINE CULTURE RESULTS PLUS NRG FREE TEXT ENTRY 2 COMBINED SENSITIVITY REPORTED AT 1120, NRG FREE TEXT ENTRY 3 02-20-17 [facility] Bacterial susceptibility panel - 7 05:32 Gentamicin [...] inhibitory concentration - NR Methicillin resistant Staphylococcus aur eus (MRSA) screening [...] - 12/02/17 03:45 Bacterial blood culture NG [facility] Serum glomerular basement membrane antib salvador assay (mass/volume) - 12/02/17 03:45 Serum glomerular basement membrane antibody assay (uni ts/volume) < % 0.0-19.9 Bacterial blood culture - 12/02/17 04:29 QUANTITY OF GROWTH . [facility] Bacterial blood culture SEE COMMEN [facility] Sputum Gram stain - 12/02/17 04:33 Sputum Gram stain REPORT 12-03-2017, 0905. [facility] Bacterial sputum culture - 12/02/17 04:3 3 QUANTITY OF GROWTH . [facility] Bacterial sputum culture USUAL RESP NRG Influenza virus A and B antigen detectio n - 12/02/17 06:00 FLU RESULT NEGATIVE FOR INFLUENZA A AND B ANTIGENS BY IA NRG Methicillin resistant Staphylococcus aur eus (MRSA) [...] blood hemoglobin and hematocrit pa mark - 12/03/17 19:05 Venous blood hemoglobin measurement (mass/volume) 8.9 g/dL 11.5-16.0 Blood hematocrit (volume fraction) 28 % 35-52 Capillary blood glucose measurement by g lucometer (mass/volume) - 12/03/17 23:28 Capillary blood glucose measurement by glucometer (mas s/volume) 263 mg/dL 70-110 Whole blood hemoglobin and hematocrit pa mark - 12/03/17 23:52 Venous blood hemoglobin measurement [...] 1.8-2.4 Pathologist review of blood test by piedad boogie - 12/04/17 05:50 Blood leukocytes automated count [...] ABO+Rh group OP NRG Transfusion band number [id number] NR Blood group antibody screen NEGATIVE NR G [...] mg/dL 70-110 Automated blood complete blood count ( mogram) panel - 12/16/17 05:35 Blood leukocytes [...] mg/dL 70-110 Whole blood hemoglobin and hematocrit [facility] - 12/20/17 05:49 Venous blood hemoglobin measurement [...] i.cardiac measurement (mass/v olume) < ng/mL <0.028 [id number] - 02/19/19 12:53 [id number] < 0.30 0.80-2.00 Serum or plasma lithium [...] Status Pt. Type Provider Facility Loc./Unit Complaint [id number] 05/02/2019 11:23:00 23:59:59 CLS Outpatient VINEET DASILVA Via [facility] CARD CAD [id number] 03/21/2019 09:34:00 23:59:59 CLS Outpatient BLAKE ESCOBAR DO Via [facility] RAD [id number] 02/19/2019 14:45:00 13:31:00 DIS Inpatient BRITNEY LEMUS, LIDIA Camarena Via [facility] 4TH CHF [id number] 01/20/2019 10:17:00 23:59:59 CLS Outpatient WARNER ESCOBAR Via [facility] RAD PAIN IN RIGHT H AND [id number] 12/30/2018 09:31:00 23:59:59 CLS Outpatient WARNER ESCOBAR Via [facility] RAD LESION OF LIVER [id number] 08/02/2018 09:36:00 23:59:59 CLS Outpatient ESCOBAR DO BLAKE Bae Via [facility] RAD THORACIC DISC H ERNIATION [id number] 06/30/2018 08:38:00 23:59:59 CLS Outpatient ESCOBAR BLAKE Via [facility] RAD NEURALGIA, INTE RCOASTAL [id number] 06/06/2018 08:22:00 23:59:59 CLS Outpatient Catalino VILLA DO [facility] RAD SCREENING [id number] 05/06/2018 09:08:00 23:59:59 CLS Preadmit OPAL BLUE APRN Via [facility] RAD RUQ ABD PAIN FOLLOW UP [id number] 05/03/2018 11:19:00 23:59:59 CLS Outpatient OPAL BLUE APRN Via [facility] RAD RUQ PAIN, RLQ PAIN, R FLANK PAIN [id number] 04/13/2018 12:21:00 23:59:59 CLS Outpatient RAJEEV CAMILO MD Via [facility] LAB POST OP [id number] 03/30/2018 08:47:00 15:38:00 DIS Outpatient RAJEEV CAMILO MD Via [facility] SDC GALLSTONES [id number] 03/29/2018 11:49:00 14:40:00 DIS Outpatient RAJEEV CAMILO MD Via [facility] PREOP GALLSTONES [id number] 03/28/2018 14:46:00 23:59:59 CLS Outpatient KURTIS DIEGO MD Via [facility] RAD RUQ ABD PAIN,NAUSEA [id number] 03/02/2018 10:04:00 12/19/2 018 23:59:59 CLS Outpatient RANDY MORRISON Via [facility] RAD COMPRESSION FX L3 [id number] 02/24/2018 09:56:00 23:59:59 CLS Outpatient RANDY MORRISON RETAIL CONSULTANT Via [facility] RAD LOW BACK PAIN [id number] 12/09/2017 11:21:00 018 11:30:00 DIS Inpatient JENN NORRIS MD Via [facility] IRF CRITICAL ILLNESS MYOPAT HY [id number] 12/02/2017 04:58:00 018 11:20:00 DIS Inpatient KURTIS DIEGO MD Via [facility] 4TH RT MULTILOBES PNEUMONIA [id number] 10/13/2017 08:00:00 018 23:59:59 CLS Preadmit TANA OVIEDO MD Via [facility] CR STENT [id number] 10/01/2017 11:22:00 018 00:01:00 DIS Outpatient TANA OVIEDO MD Via [facility] CR STENT [id number] 08/25/2017 05:20:00 018 06:42:00 DIS Emergency DANIAL DO, TUNDE Casey Vi a [facility] ER PAIN IN LEFT LEG,NOT SL EEPING [id number] 07/14/2017 08:00:00 018 23:59:59 CLS Preadmit TANA OVIEDO MD Via [facility] CR STENT [id number] 07/09/2017 09:37:00 018 00:01:00 DIS Outpatient TANA OVIEDO MD Via [facility] CR STENT [id number] 05/31/2017 13:00:00 018 23:59:59 CLS Preadmit JOHN LEMUS FACCDEMARIO FACP CCDS Via [facility] CARD I48.0 PAF [id number] 05/25/2017 04:25:00 018 11:10:00 DIS Inpatient KURTIS DIEGO MD Via [facility] ICU A-FIB RVR, CHEST PAIN,P ULMONARY EDEMA [id number] 02/23/2017 09:00:00 017 23:59:59 CLS Preadmit DEMARIO LOPEZ MD, FACC, FACP CCDS Via [facility] CATH CAD,DM,ANGINA [id number] 02/18/2017 05:32:00 017 14:20:00 DIS Inpatient KURTIS DIEGO MD Via [facility] ICU ACUTE CHF,CHEST PAIN,RE SP DISTRESS [id number] 01/12/2017 07:28:00 017 23:59:59 CLS Outpatient DEMARIO LOPEZ MD, FACC, FACP CC DS Via [facility] CARD I35.0 [id number] 01/08/2017 08:30:00 017 23:59:59 CLS Outpatient DEMARIO LOPEZ MD, FACC, FACP CC DS Via [facility] CARD I35.0 [id number] 08/03/2016 14:01:00 017 23:59:59 CLS Outpatient LAITH BECK MD Via [facility] CARD DISC DISORDER [id number] 03/26/2016 10:00:00 017 23:59:59 CLS Preadmit [facility], UNCONT ROLLED DIABETES [id number] 12/26/2015 09:46:00 00:01:00 DIS Outpatient [facility], UNCON TROLLED DIABETES [id number] 12/20/2015 07:57:00 016 23:59:59 CLS Outpatient LAITH BECK MD Via [facility] CARD DISC DISORDER [id number] 11/19/2015 08:55:00 016 23:59:59 CLS Outpatient VINEET DASILVA Via [facility] CARD [id number] 08/09/2015 10:15:00 23:59:59 CLS Preadmit THOMAS MCGEE MD Via [facility] DIZZINESS, VISUAL KAYE ES SEVERE HEADACHES [id number] 06/03/2015 09:05:00 00:01:00 DIS Outpatient THOMAS MCGEE MD Via [facility] CARD DIZZINESS, VISUAL KAYE ES SEVERE HEADACHES [id number] 07/19/2015 07:43:00 08:58:00 DIS Outpatient LAITH BECK MD Via [facility] CARD DISC DISORDER [id number] 07/15/2015 11:45:00 13:42:00 DIS Outpatient LAITH BECK MD Via [facility] DISC DISORDER W/RADICUL OPATHY [id number] 04/01/2015 13:41:00 23:59:59 CLS Outpatient JOHN LEMUS FACDoc, DEMARIO ALLEN CC DS Via [facility] CARD VERITGO [id number] 03/23/2015 12:22:00 15:00:00 DIS Emergency ZORAIDA FORMAN [employer] Via [facility] ER DIZZINESS/NAUSEA [id number] 01/04/2015 09:15:00 10:15:00 DIS Outpatient LAITH BECK MD Via [facility] CARD OTHER INTERVETREBRAL DI SC DISPLACEMENT [id number] 11/26/2014 07:35:00 23:59:59 CLS Outpatient GALE MENDEZ MD Via [facility] RAD RADICULOPATHY [id number] 11/15/2014 09:11:00 23:59:59 CLS Outpatient GALE MENDEZ MD Via [facility] RAD RADICULOPATHY [id number] 06/13/2014 08:56:00 23:59:59 CLS Outpatient JOHN LEMUS FACDoc, DEMARIO ALLEN CC DS [facility] RAD BILAT LEG F OOT PAIN, DIABETES [id number] 06/12/2014 08:18:00 03/31/2 015 23:59:59 CLS Outpatient JOHN LEMUS FACC, DMEARIO ALLEN CC DS Via [facility] CARD CHEST DISCO MFORT, AORTIC STENOSIS [id number] 11/06/2013 09:23:00 014 23:59:59 CLS Outpatient HENRY BAIG MD Via [facility] RAD SCREENING [id number] 07/25/2019 11:00:00 P EN Preadmit JOHN LEMUS FACC, DEMARIO ALLEN CCDS Via [facility] AORTIC STENOSIS [id number] 06/08/2014 17:37:00 Document Registration [id number] 04/04/2012 15:58:00 Document Registration [id number] 12/30/2011 06:47:00 Document Registration [id number] 08/17/2011 12:51:00 Document Registration [id number] 08/07/2010 12:49:00 Document Registration
[2019-07-25] MEDS: NS IV 1000 ML 1,000 ML IV SCH ×2 (08:42→15:24)
[2019-07-25 08:51] LABS: HEMOGLOBIN 11.2 G/DL (11.5-16.0); MEAN PLATELET VOLUME 9.2 FL (7.4-10.4); RED CELL DISTRIBUTION WIDTH 14.2 % (10.0-14.5); WHITE BLOOD COUNT 6.9 10^3/uL (4.3-11.0)
[2019-07-25 09:03] LABS: CHLORIDE 100 MMOL/L (98-107); INR 0.9 (0.8-1.4); POTASSIUM 4.6 MMOL/L (3.6-5.0); PROTHROMBIN TIME PATIENT 12.5 SEC (12.2-14.7); SODIUM 139 MMOL/L (135-145)
[2019-07-25 09:04] LABS: ALBUMIN 4.4 GM/DL (3.2-4.5)
[2019-07-25 09:05] LABS: CALCIUM 9.5 MG/DL (8.5-10.1); TRIGLYCERIDES 155 MG/DL (<150); VLDL CHOLESTEROL 31 MG/DL (5-40)
[2019-07-25 09:06] LABS: GLUCOSE 118 MG/DL (70-105); TOTAL PROTEIN 7.4 GM/DL (6.4-8.2)
[2019-07-25 09:07] LABS: CARBON DIOXIDE 29 MMOL/L (21-32)
[2019-07-25 09:08] LABS: BILIRUBIN,TOTAL 0.3 MG/DL (0.1-1.0)
[2019-07-25 09:10] LABS: ALKALINE PHOSPHATASE 74 U/L (40-136); CREATININE SERUM 0.93 MG/DL (0.60-1.30); GFR ESTIMATED 58
[2019-07-25 09:11] LABS: BUN/CREATININE RATIO 17; CHOLESTEROL 191 MG/DL (< 200)
[2019-07-25 09:12] LABS: HDL CHOLESTEROL 50 MG/DL (40-60)
[2019-07-25 09:13] LABS: ALANINE AMINOTRANSFERASE < 6 U/L (0-55)
[2019-07-25] MEDS ORDERED: TRM50T PO (09:17)
[2019-07-25] MEDS ORDERED: INSU100V6 SQ (09:17)
[2019-07-25] MEDS ORDERED: LEVO50TA6 PO (09:17)
[2019-07-25] MEDS ORDERED: OMEG-25 PO (09:17)
[2019-07-25] MEDS ORDERED: MTP100TCR PO (09:17)
[2019-07-25] MEDS ORDERED: PANC1CAP PO (09:17)
[2019-07-25] MEDS ORDERED: MIDAZOLAM 5 MG/5 ML (VERSED) VIAL ONE (14:59)
[2019-07-25] MEDS ORDERED: fentaNYL INJECTION 100 MCG/2 ML AMP ONE (14:59)
--- NOTE | 2019-07-25 15:13 | Cardiac Procedure Note-CS/ASA ---
Pre-Procedure Note Pre-Op Procedure Note H&P Reviewed The H&P was reviewed, patient examined and no changes noted. Date H&P Reviewed: July 25, 2019 Time H&P Reviewed: 15:12 Conscious Sedation Pre-Proced Time 15:12 ASA Score 3 For ASA 3 and 4: Consider anesthesia and medical clearance. Also, for patients with a history of failed moderate sedation consider anesthesia. Airway Lungs Heart ASA score ASA 1: a normal healthy patient ASA 2: a patient with a mild systemic disease (mid diabetes, controlled hypertension, obesity ASA 3: a patient with a severe systemic disease that limits activity (angina, COPD, prior Myocardial infarction) ASA 4: a patient with an incapacitating disease that is a constant threat to life (CHF, renal failure) ASA 5: a moribund patient not expected to survive 24 hrs. (ruptured aneurysm) ASA 6: a declared brain- patient whose organs are being harvested. For emergent operations, add the letter E after the classification Mallampati Classification Grade 2 Sedation Plan Analgesia, Amnesia, Plan communicated to team members, Discussed options with patient/fam, Discussed risks with patient/fam The patient is an appropriate candidate to undergo the planned procedure, sedation, and anesthesia. The patient immediately re-assessed prior to indication. DEMARIO LOPEZ MD FACP FAC CCDS July 25, 2019 15:13
--- NOTE | 2019-07-25 16:05 | NUR ---
PT TO ROOM FROM HEAD OF [employer]. REPORT RECEIVED FROM MINH BARAJAS. NO NEW COMPLAINTS. NO ACUTE CHANGES. VITALS ARE STABLE. GROIN SITE SOFT WITH NO EVIDENCE OF BLEEDING. ORDERS REVIEWED. PLAN OF CARE GONE OVER WITH PT. EDUCATED ON IMPORTANCE OF REMAINING FLAT AND STILL. WILL CONTINUE TO MONITOR.
[2019-07-25] MEDS ORDERED: NS IV 1000 ML 1,000 ML IV SCH (16:20)
--- NOTE | 2019-07-25 16:24 | Discharge Inst-Post CATH ---
Discharge Inst-CATH/EP Post Cardiac Cath/EP D/C Inst Follow Up/Plan f/u with Dr Owens in 2 weeks ACTIVITY * Go Home directly and rest. * Limit activity of the leg (or wrist if it was used) for 7 days including aerobics, swimming, jogging, bicycling, etc. * Restrict stair-climbing for 7 days if possible, if not, climb up with your n on-cath leg, then bring together on the same step. * Avoid lifting, pushing, pulling or excessive movement of the affected ex tremity for 7 days. * Customary sexual activity may be resumed after 2 days-use caution not to use a position that strains or causes pain to the affected extremity. * No driving for 24 hours. * NO SMOKING. * Avoid straining for bowel movements for 7 days. * Gentle walking on level ground is allowed. * Returning to work will depend on the type of procedure and the results. Your doctor will discuss this with you. CALL YOUR DOCTOR FOR ANY OF THE FOLLOWING: *If bleeding from the puncture site occurs- Apply gentle pressure to site with clean cloth and call your doctor or EMS. * If a knot or lump forms under the skin, increases in size, or causes pain. * If bruising appears to be worsening or moving further down your leg instead of disappearing. * Temperature above 101 F. CARE OF YOUR GROIN INCISION; * Bruising or purple discoloration of the skin near the puncture site is common. * You may shower only, no bathtub bathing for 5 days. Be careful to avoid slipping as your leg may feel stiff. * If a closure device was used on your femoral artery, please see the attached guide regarding care of the device and your leg. * Leave dressing on FOR 24 hours. CARE OF YOUR WRIST INCISION; * Bruising or purple discoloration of the skin near the puncture site is common. * You may shower. * DO NOT submerge wrist. * Leave dressing on FOR 24 hours. DEMARIO OWENS MD FACP FAC CCDS July 25, 2019 16:24
--- NOTE | 2019-07-25 16:25 | Discharge Inst-Cardiology ---
Discharge Inst-Cardiac Discharge Medications Continued Medications: Acetaminophen (Tylenol Extra Strength) 500 Mg Tablet 500-1000 MG PO Q4H PRN for PAIN-MILD, TAB Acetaminophen/Diphenhydramine (Tylenol Pm Ex-Strength Caplet) 1 Each Tablet 1 TAB PO HS, TAB Allopurinol (Allopurinol) 100 Mg Tablet 100 MG PO DAILY Amlodipine Besylate (Amlodipine Besylate) 5 Mg Tablet 5 MG PO DAILY Apixaban (Eliquis) 5 Mg Tablet 5 MG PO BID Aspirin (Aspirin) 81 Mg Tab.chew 81 MG PO DAILY, TAB Cranberry Fruit (Cranberry) 450 Mg Tablet 450 MG PO DAILY, TAB Escitalopram Oxalate (Escitalopram Oxalate) 10 Mg Tablet 10 MG PO DAILY, TAB Ezetimibe (Ezetimibe) 10 Mg Tablet 10 MG PO HS, TAB Fluticasone Propionate (Fluticasone Propionate) 16 Gm [place].susp 1 SPRAY NS BID PRN for ALLERGIES, EA Furosemide (Furosemide) 40 Mg Tablet 40 MG PO DAILY for 30 Days, #30 TAB 0 Refills Gabapentin (Gabapentin) 600 Mg Tablet 600 MG PO BID PRN for NERVE PAIN, TAB Insulin Glargine,Hum.rec.anlog (Lantus) 100 Unit/1 Ml Vial 20 UNIT SQ DAILY, VIAL Levothyroxine Sodium (Levothyroxine Sodium) 50 Mcg Tablet 50 MCG PO DAILY, TAB Metoprolol Succinate (Metoprolol Succinate) 100 Mg Tab.er.24h 100 MG PO BID, TAB [place]-3S/Dha/Epa/Fish Oil (Fish Oil EC 1,200 mg Softgel) 1 Each Capsule.dr 1 EACH PO DAILY, CAP Pancreat/Bet HCl/Pep/Brom/Pap (Super Enzyme Caps) 1 Each Capsule 1 EACH PO TID, CAP Pantoprazole Sodium (Pantoprazole Sodium) 40 Mg Tablet.dr 40 MG PO DAILY, TAB Potassium Chloride (Potassium Chloride) 20 Meq Tablet.er 20 MEQ PO DAILY PRN for SWELLLING, TAB Sacubitril/Valsartan (Entresto 24 mg-26 mg Tablet) 1 Each Tablet 1 TAB PO BID, TAB Tramadol HCl (Tramadol HCl) 50 Mg Tablet 50 MG PO Q6H PRN for PAIN-MILD (1-4), TAB Discontinued Medications: Metformin HCl (Metformin HCl) 500 Mg Tablet 500 MG PO HS, TAB Metformin HCl (Metformin HCl) 500 Mg Tablet 750 MG PO 0700,1200, TAB TAKES 1 & 1/2 (500MG) TABLETS Patient Instructions Patient Instructions: Hold metformin until the morning of 07/28/19 and then resume previous home dose DEMARIO LOPEZ MD FACP FACC CCDS July 25, 2019 16:25
[2019-07-25] MEDS ORDERED: PATIENT MAY USE OWN MEDS, ALL PO SCH (16:30)
--- NOTE | 2019-07-25 16:40 | CARDIAC CATHETERIZATION ---
DATE OF SERVICE: 07/25/2019 CARDIAC CATHETERIZATION REPORT The patient is a 78-year-old lady who is known to have coronary artery disease and has recently been experiencing chest discomfort and exertional shortness of breath that is reminiscent of previous angina. DICTATION ENDS HERE. Job ID: [id number] DocumentID: [id number] Dictated Date: 07/25/2019 16:10:33 Tapper Bit Date: 07/25/2019 16:39:05 Dictated By: DEMARIO LOPEZ MD, MA, FACP, FACC,
--- NOTE | 2019-07-25 16:41 | CARDIAC CATHETERIZATION ---
DATE OF SERVICE: 07/25/2019 CARDIAC CATHETERIZATION The patient is a 78-year-old lady who is known to have coronary artery disease and has had stenting of the left anterior descending artery in [place], [place] a couple of years ago. She has been experiencing recurrent chest discomfort and shortness of breath that is reminiscent of her previous angina. Cardiac catheterization was carried out today after having obtained an informed consent. DESCRIPTION OF PROCEDURE: She was brought to the cardiac catheterization laboratory in a fasting state. Right groin was prepared and draped in the usual sterile fashion. Lidocaine 1% was used for local anesthesia. Modified Seldinger technique was used to advance a 5-Yoruba sheath into the right femoral artery, 5-Yoruba JL4 catheter for left coronary angiography, 5-Yoruba JR4 catheter for right coronary angiography, 5-Yoruba pigtail catheter was used for left heart catheterization and left ventricular angiography. The catheter was removed. Angiography of the right femoral artery was carried out through the sheath. Mynx was used to achieve hemostasis. She tolerated the procedure well. HEMODYNAMICS: Left ventricular end-diastolic pressure following coronary angiography was 9 mmHg. Left ventricular pressure was 195/9. Ascending aortic pressure was 152/82 with a mean of 65 mmHg. There was approximately 40 mm gradient on pullback across the aortic valve, indicating at least moderate aortic stenosis. CORONARY ANGIOGRAPHY: Left main coronary artery does not exhibit significant disease. There is a proximal coronary calcification. Left anterior descending artery has a patent stent in its mid portion. The first diagonal branch is occluded. This diagonal branch arises through the stented segment of the left anterior descending. Left circumflex artery has diffuse mild to moderate plaques. Right coronary artery has diffuse moderate plaques. LEFT VENTRICULAR ANGIOGRAPHY: Left ventricular angiography was carried out in the right anterior oblique projection. Global left ventricular systolic function normal. No regional wall motion abnormalities are seen. Left ventricular ejection fraction approximately 60%. CONCLUSIONS: 1. Patent mid vessel stent in the left anterior descending and chronic total occlusion of the first diagonal. The rest of the coronary vessels have moderate diffuse plaque. 2. Normal global left ventricular systolic function with ejection fraction approximately 60%. 3. At least moderate aortic stenosis is indicated by a 40 mm pressure gradient (oqqp-xd-tujp) on pullback across the aortic valve. 4. Normal left ventricular end-diastolic pressure. DISCUSSION AND RECOMMENDATIONS: Based on results of the study, it appears appropriate to continue a conservative approach. She has already had a surgical evaluation for aortic stenosis and was not found to be a suitable candidate for surgery at that time. This issue will be readdressed. We have advised outpatient followup. Job ID: [id number] DocumentID: [id number] Dictated Date: 07/25/2019 16:17:29 Recruitment Coordinator Date: 07/25/2019 16:40:41 Dictated By: DEMARIO LOPEZ MD, MA, FACP, FACC, MTDD
--- NOTE | 2019-07-25 20:03 | NUR ---
CAMERON WHITAKER demonstrates understanding of discharge instructions and accurately returns instructions upon questioning. Copy of Post-Discharge Instructions given to . CAMERON WHITAKER is able to manage continuing needs after discharge. Patients belongings returned to CAMERON WHITAKER. Patient discharged from 511-1 on at . CAMERON WHITAKER left floor via wc, accompanied by staff.
== END 2019-07-25 19:55 | disposition home or self-care (01) ==
LOC: CATH 07:59 → CSD 16:14 → CATH 19:55
PROVIDERS: ATTEND Internal Medicine Cardiovascular Disease
DX: I25.82 Chronic total occlusion of coronary artery (principal); I35.0 Nonrheumatic aortic (valve) stenosis; I65.29 Occlusion and stenosis of unspecified carotid artery; I27.20 Pulmonary hypertension, unspecified; I25.5 Ischemic cardiomyopathy; I25.10 Atherosclerotic heart disease of native coronary artery without angina pectoris; I48.0 Paroxysmal atrial fibrillation; I95.1 Orthostatic hypotension; I50.42 Chronic combined systolic (congestive) and diastolic (congestive) heart failure; E11.22 Type 2 diabetes mellitus with diabetic chronic kidney disease; E78.5 Hyperlipidemia, unspecified; N18.3 Chronic kidney disease, stage 3 (moderate); M51.26 Other intervertebral disc displacement, lumbar region; M48.061 Spinal stenosis, lumbar region without neurogenic claudication; M47.816 Spondylosis without myelopathy or radiculopathy, lumbar region; M19.90 Unspecified osteoarthritis, unspecified site; I31.0 Chronic adhesive pericarditis; Z88.8 Allergy status to other drugs, medicaments and biological substances; Z79.01 Long term (current) use of anticoagulants; Z90.49 Acquired absence of other specified parts of digestive tract; Z90.710 Acquired absence of both cervix and uterus; Z96.659 Presence of unspecified artificial knee joint; Z79.82 Long term (current) use of aspirin; Z79.899 Other long term (current) drug therapy; Z79.84 Long term (current) use of oral hypoglycemic drugs
CPT/HCPCS: 36415; 80053; 80061; 85027; 85610; 85730; 87081; 93458

== ENCOUNTER 2019-11-27 07:57 | Emergency (ER) | payer MEDICARE ==
[~2019-11-27] VITALS: Ht 160 cm; Wt 68.0 kg
[~2019-11-27 07:57] MED LIST changes: +OMEG-25 PO; +PANC1CAP PO; +TRM50T PO
[2019-11-27 08:13] LABS: BASOPHILS % (AUTO) 1 % (0-10); EOSINOPHILS # (AUTO) 0.1 10^3/uL (0.0-0.3); EOSINOPHILS % (AUTO) 1 % (0-10); HEMATOCRIT 35 % (35-52); HEMOGLOBIN 11.1 G/DL (11.5-16.0); LYMPHOCYTES # (AUTO) 1.1 X 10^3 (1.0-4.0); LYMPHOCYTES % (AUTO) 18 % (12-44); MEAN CORPUSCULAR HEMOGLOBIN 28 PG (25-34); MEAN CORPUSCULAR HGB CONC 32 G/DL (32-36); MEAN CORPUSCULAR VOLUME 87 FL (80-99); MEAN PLATELET VOLUME 9.2 FL (7.4-10.4); MONOCYTES # (AUTO) 0.4 X 10^3 (0.0-1.0); MONOCYTES % (AUTO) 6 % (0-12); NEUTROPHILS # (AUTO) 4.5 X 10^3 (1.8-7.8); NEUTROPHILS % (AUTO) 74 % (42-75); PLATELET COUNT 416 10^3/uL (130-400); WHITE BLOOD COUNT 6.2 10^3/uL (4.3-11.0)
--- NOTE | 2019-11-27 08:13 | ED Chest Pain ---
General Stated Complaint: CHEST PAIN Source: patient Exam Limitations: no limitations History of Present Illness Date Seen by Provider: Nov 27, 2019 Time Seen by Provider: 07:53 Initial Comments Patient arrives the ER by private conveyance with chief complaint of substernal nonradiating chest pain starting about 5:00 this morning when she woke up. Not worse with laying down flat or orthopnea. The pain is a 10 out of 10 at its start and worse with any kind of movement or direct palpation. No trauma or fall. She's not having any shortness of breath cough fever or chills. She does not have any history of lung disease nor does she smoke. She does have a history of diabetes, hypertension but no hyperlipidemia. She took all of her morning meds including a dose of aspirin. She's not having any nausea dysuria diarrhea. Followed by Dr. Ramos and Dr. Owens. She had a stent in 2016 placed. She also has a history of a leaky heart valve that she says is not bad enough to be replaced yet. Moderate aortic stenosis and ejection fraction 60% on coronary angiogram July 2019. Dr. 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 The rest the coronary vessels have moderate diffuse plaque. History of cholecystectomy. The patient does take Eliquis but is unsure of the reason why. She denies a history of paroxysmal atrial fibrillation/flutter. She denies history of pulmonary embolism's or other DVTs. She says it was initiated by Dr. Owens. Allergies and Home Medications Allergies Coded Allergies: canagliflozin (Verified Allergy, Severe, LIGHT HEADED/HEADACHES/UTI/FELT LIKE SHE WOULD PASS OUT, 02/19/19) liraglutide (Verified Allergy, Severe, RAPID HEART RATE/HEADACHE/DIZZINESS, 02/19/19) Lbhtzpn-Egr-Mrb Reductase Inhibitor (Verified Adverse Reaction, Severe, MUSCLE PAIN, 02/19/19) Home Medications Acetaminophen 500 Mg Tablet, 500-1,000 MG PO Q4H PRN for PAIN-MILD, (Reported) Acetaminophen/Diphenhydramine 1 Each Tablet, 1 TAB PO HS, (Reported) Allopurinol 100 Mg Tablet, 100 MG PO DAILY, (Reported) Amlodipine Besylate 5 Mg Tablet, 5 MG PO DAILY, (Reported) Apixaban 5 Mg Tablet, 5 MG PO BID, (Reported) Aspirin 81 Mg Tab.chew, 81 MG PO DAILY, (Reported) Cranberry Fruit 450 Mg Tablet, 450 MG PO DAILY, (Reported) Escitalopram Oxalate 10 Mg Tablet, 10 MG PO DAILY, (Reported) Ezetimibe 10 Mg Tablet, 10 MG PO HS, (Reported) Fluticasone Propionate 16 Gm [place].susp, 1 SPRAY NS BID PRN for ALLERGIES, (Reported) Furosemide 40 Mg Tablet, 40 MG PO DAILY Prescribed by: LIDIA TAN on 02/21/19 1003 Gabapentin 600 Mg Tablet, 600 MG PO BID PRN for NERVE PAIN, (Reported) Insulin Glargine,Hum.rec.anlog 100 Unit/1 Ml Vial, 20 UNIT SQ DAILY, (Reported) Isosorbide Mononitrate 30 Mg Tab.er.24h, 30 MG PO DAILY Prescribed by: BRITTANY PENA on 11/27/19 1042 Levothyroxine Sodium 50 Mcg Tablet, 50 MCG PO DAILY, (Reported) Metoprolol Succinate 100 Mg Tab.er.24h, 100 MG PO BID, (Reported) [place]-3S/Dha/Epa/Fish Oil 1 Each Capsule.dr, 1 EACH PO DAILY, (Reported) Pancreat/Bet HCl/Pep/Brom/Pap 1 Each Capsule, 1 EACH PO TID, (Reported) Pantoprazole Sodium 40 Mg Tablet.dr, 40 MG PO DAILY, (Reported) Potassium Chloride 20 Meq Tablet.er, 20 MEQ PO DAILY PRN for SWELLLING, (Reported) Sacubitril/Valsartan 1 Each Tablet, 1 TAB PO BID, (Reported) Tramadol HCl 50 Mg Tablet, 50 MG PO Q6H PRN for PAIN-MILD (1-4), (Reported) Patient Home Medication List Home Medication List Reviewed: Yes Review of Systems Review of Systems Constitutional: No chills, No diaphoresis EENTM: No Blurred Vision, No Double Vision, No Eye Pain Respiratory: Denies Cough, Denies Orthopnea Cardiovascular: Denies Chest Pain, Denies Edema Gastrointestinal: Denies Abdomen Distended, Denies Abdominal Pain Genitourinary: Denies Burning, Denies Discharge Musculoskeletal: No back pain, No joint pain Skin: No pruritus, No rash Psychiatric/Neurological: Denies Anxiety, Denies Headache All Other Systems Reviewed Negative Unless Noted: Yes Past Rlnhqbe-Ldbrrc-Pnfmot Hx Patient Social History Alcohol Use: Rarely Uses Alcohol Beverage of Choice: Wine Recreational Drug Use: No Smoking Status: Never a Smoker 2nd Hand Smoke Exposure: No Recent Foreign Travel: No Contact w/Someone Who Travel: No Recent Hopitalizations: No Immunizations Up To Date Tetanus Booster (TDap): Unknown PED Vaccines UTD: No Date of Pneumonia Vaccine: Feb 14, 2017 Date of Influenza Vaccine: Dec 29, 2018 Seasonal Allergies Seasonal Allergies: Yes Past Medical History Surgeries: Yes (bilat TKR, bilat carpal tunnel, R ROTATOR CUFF) Bladder Surgery, Coronary Stent, Gallbladder, Hysterectomy, Orthopedic, Tonsillectomy Respiratory: No Currently Using CPAP: No Currently Using BIPAP: No Cardiac: Yes (aortic stenosis, carotid stenosis, cardiac stent) Coronary Artery Disease, High Cholesterol, Hypertension, Peripheral Vascular, Valvular Heart Disease Neurological: No Genitourinary: No UTI-Chronic Gastrointestinal: No Hiatal Hernia, Gall Bladder Disease Musculoskeletal: Yes Osteoporosis, Arthritis Endocrine: Yes Diabetes, Non-Insulin dep HEENT: No Loss of Vision: Denies Hearing Impairment: Denies Cancer: No Psychosocial: Yes Anxiety Integumentary: No Blood Disorders: No Family Medical History Cardiovascular disease Congenital heart disease 19 FATHER 19 MOTHER G8 BROTHER G8 BROTHER Diabetes mellitus 19 FATHER G8 BROTHER G8 BROTHER Hypertension Myocardial infarction 19 FATHER Heart Disease, Hypertension Physical Exam Vital Signs Vital Signs - First Documented 11/27/19 07:59 Temp 36.1 Pulse 71 Resp 16 B/P (MAP) 161/83 (109) Pulse Ox 97 O2 Delivery Room Air Capillary Refill : Height, Weight, BMI Height: 5'3.00" Weight: 144lbs. 0.0oz. 65.751048ve; 18.75 BMI Method:Stated General Appearance: Anxious, Mild Distress HEENT: PERRL/EOMI, Pharynx Normal, Moist Mucous Membranes Neck: Full Range of Motion, Normal Inspection Respiratory: No Chest Non Tender; Lungs Clear, Normal Breath Sounds, No Accessory Muscle Use, No Respiratory Distress Cardiovascular: Regular Rate, Rhythm, No Edema, Normal Peripheral Pulses Gastrointestinal: Normal Bowel Sounds, No Organomegaly, Non Tender, Soft Extremity: Normal Capillary Refill, Normal Inspection, Normal Range of Motion, Non Tender Neurologic/Psychiatric: Alert, Oriented x3, No Motor/Sensory Deficits Skin: Normal Color, Warm/Dry Procedures/Interventions Date of ETT Placement: Dec 02, 2017 Time of ETT Placement: 1753 Progress/Results/Core Measures Results/Orders Lab Results Laboratory Tests Test 11/27/19 08:04 11/27/19 10:04 Range/Units White Blood Count 6.2 4.3-11.0 10^3/uL Red Blood Count 3.99 L 4.35-5.85 10^6/uL Hemoglobin 11.1 L 11.5-16.0 G/DL Hematocrit 35 35-52 % Mean Corpuscular Volume 87 80-99 FL Mean Corpuscular Hemoglobin 28 25-34 PG Mean Corpuscular Hemoglobin Concent 32 32-36 G/DL Red Cell Distribution Width 14.5 10.0-14.5 % Platelet Count 416 H 130-400 10^3/uL Mean Platelet Volume 9.2 7.4-10.4 FL Neutrophils (%) (Auto) 74 42-75 % Lymphocytes (%) (Auto) 18 12-44 % Monocytes (%) (Auto) 6 0-12 % Eosinophils (%) (Auto) 1 0-10 % Basophils (%) (Auto) 1 0-10 % Neutrophils # (Auto) 4.5 1.8-7.8 X 10^3 Lymphocytes # (Auto) 1.1 1.0-4.0 X 10^3 Monocytes # (Auto) 0.4 0.0-1.0 X 10^3 Eosinophils # (Auto) 0.1 0.0-0.3 10^3/uL Basophils # (Auto) 0.0 0.0-0.1 10^3/uL Prothrombin Time 14.4 12.2-14.7 SEC INR Comment 1.1 0.8-1.4 Activated Partial Thromboplast Time 34 24-35 SEC Sodium Level 134 L 135-145 MMOL/L Potassium Level 4.9 3.6-5.0 MMOL/L Chloride Level 97 L 98-107 MMOL/L Carbon Dioxide Level 25 21-32 MMOL/L Anion Gap 12 5-14 MMOL/L Blood Urea Nitrogen 20 H 7-18 MG/DL Creatinine 0.96 0.60-1.30 MG/DL Estimat Glomerular Filtration Rate 56 BUN/Creatinine Ratio 21 Glucose Level 153 H 70-105 MG/DL Calcium Level 9.0 8.5-10.1 MG/DL Corrected Calcium 8.8 8.5-10.1 MG/DL Magnesium Level 1.9 1.6-2.4 MG/DL Total Bilirubin 0.3 0.1-1.0 MG/DL Aspartate Amino Transf (AST/SGOT) 13 5-34 U/L Alanine Aminotransferase (ALT/SGPT) 10 0-55 U/L Alkaline Phosphatase 76 40-136 U/L Myoglobin 34.1 10.0-92.0 NG/ML Troponin I < 0.028 < 0.028 <0.028 NG/ML B-Type Natriuretic Peptide 1569.9 H <100.0 PG/ML Total Protein 7.0 6.4-8.2 GM/DL Albumin 4.3 3.2-4.5 GM/DL Lipase 15 8-78 U/L My Orders Orders - BRITTANY PENA Cbc With Automated Diff (11/27/19 08:05) Magnesium (11/27/19 08:05) Chest 1 View, Ap/Pa Only (11/27/19 08:05) Ekg Tracing (11/27/19 08:05) Comprehensive Metabolic Panel (11/27/19 08:05) Myoglobin Serum (11/27/19 08:05) Protime With Inr (11/27/19 08:05) Partial Thromboplastin Time (11/27/19 08:05) O2 (11/27/19 08:05) Monitor-Rhythm Ecg Trace Only (11/27/19 08:05) Lipid Panel (11/28/19 06:00) Ed Iv/Invasive Line Start (11/27/19 08:05) Lipase (11/27/19 08:05) BNP (11/27/19 08:05) Troponin I (11/27/19 08:05) Nitroglycerin 0.4 Mg Btl 25's (Nitrostat (11/27/19 08:15) Aspirin Chewable Tablet (Baby Aspirin Ch (11/27/19 08:15) Troponin I (11/27/19 10:00) Ekg Tracing (11/27/19 09:28) Medications Given in ED Current Medications Medications Dose Ordered Sig/Jose Enrique Route Start Time Stop Time Status Last Admin Dose Admin Aspirin 243 mg ONCE ONCE PO 11/27/19 08:15 11/27/19 08:16 DC 11/27/19 08:17 243 MG Nitroglycerin 0.4 mg UD PRN SL 9/14/20 08:15 11/27/19 08:53 DC 11/27/19 08:53 0.4 MG Vital Signs/I&O 11/27/19 07:59 Temp 36.1 Pulse 71 Resp 16 B/P (MAP) 161/83 (109) Pulse Ox 97 O2 Delivery Room Air Progress Progress Note #1: Time: 08:17 Progress Note Given her history of coronary disease we'll start with some aspirin and nitroglycerin. If this does not help we can trial a GI cocktail. Her pain seems more reproducible to direct palpation of her chest, deep inspiration or movement. She is on Eliquis which she says she takes faithfully so a pulmonary embolism seems less likely. She has oxygen sats 100% at rest with no dyspnea, hemoptysis or cough. Pneumonia seems less likely but not impossible. Progress Note #2: Time: 09:27 Progress Note Heart scores 5 points but she has stent placed in 2016 and a cardiac catheterization in July, 4 months ago showing stable disease. After discussing the case with Dr. Chandra, cardiology he feels that this is not likely from progression of disease but rather either from an acute infarction or it is stable angina. He would recommend a delta troponin at 2 hours and if that is negative he would get her on a long-acting nitroglycerin and have her follow-up in the clinic. Discussed this plan with the patient and the patient's daughter Sindi and they're in agreement. Plan to repeat troponin at 10:00. Repeat EKG at 10:00. Initial ECG Impression Date: Nov 27, 2019 Initial ECG Impression Time: 07:59 Initial ECG Rate: 72 Initial ECG Rhythm: Normal Sinus Initial ECG Intervals: Normal Initial ECG Impression: Normal, Nonspecific Changes Comment Right bundle-branch block with LVH and prolonged QTC. No clinically relevant ST elevation or depression. Sinus rhythm. EKG : EKG Time: 09:33 Rate: 73 Rhythm: Normal Sinus Intervals: QT (516) ECG Comparisson: Unchanged ECG Impression: Normal, Nonspecific Changes Comment Normal sinus rhythm with right bundle branch block and prolonged QT interval. LVH. No clinically relevant ST elevation or depression. Diagnostic Imaging Diagonstic Imaging: Xray Plain Films/CT/US/NM/MRI: chest (1v) Comments [facility] [place], [place] NAME: CAMERON WHITAKER [facility] REC#: [id number] PT STATUS: REG ER : 1940 PHYSICIAN: BRITTANY PENA MD ADMIT DATE: 11/27/19/ER Signed Date of Exam:11/27/19 CHEST 1 VIEW, AP/PA ONLY Indication: Chest pain Comparison is made to study of 02/20/2019. FINDINGS: Heart size and pulmonary vascularity are within normal limits, and the lungs are clear, bilaterally. IMPRESSION: Unremarkable chest. Dictated by: Dictated on workstation # [id number] Dict: 11/27/19831 Trans: 11/27/19832 [id number] Interpreted by: DAYTON MEADOWS MD Electronically signed by: DAYTON MEADOWS MD 11/27/19832 Reviewed: Reviewed by Me Departure Impression Primary Impression: Angina pectoris Additional Impression: Costochondritis, acute Disposition: 01 HOME, SELF-CARE Condition: Stable Departure-Patient Inst. Decision time for Depature: 10:30 Referrals: DEMARIO OWENS MD FACP FACC CCDS BLAKE RAMOS DO (PCP/Family) Primary Care Physician Patient Instructions: Costochondritis (DC), Angina Add. Discharge Instructions: I think is likely you have to sources of your chest pain. You having some art hritis of your chest wall known as costochondritis. Tylenol 1000 mg every 8 hours as necessary for pain. Topical creams such as icy hot or Biofreeze can be helpful. You may also be having some baseline angina based on your most recent cardiac catheterization from July. I would like you to follow up with Dr. Owens your naval special warfare medic by calling for an appointment today to be seen sometime this week if possible. Start taking Imdur 1 tablet daily until you see your naval special warfare medic. You may continue to take your nitroglycerin if your chest pain worsens. If you to use it 3 times in a row and her still having significant chest pain then you may return to the nearest ER for further evaluation. Scripts Isosorbide Mononitrate (Isosorbide Mononitrate ER) 30 Mg Tab.er.24h 30 MG PO DAILY, #14 TAB 0 Refills Prov: BRITTANY PENA 9/14/20 Copy Copies To 1: DEMARIO OWENS MD FACP FACC CCDS BRITTANY PENA Nov 27, 2019 08:13
[2019-11-27] MEDS ORDERED: ASPIRIN 81 MG CHEW (CHILDREN'S ASA) PO ONE (08:15)
[2019-11-27] MEDS: NITROGLYCERIN 0.4 MG SL TABS BTL 25'S SL PRN ×3 (08:17→08:53)
[2019-11-27 08:28] LABS: ALBUMIN 4.3 GM/DL (3.2-4.5); POTASSIUM 4.9 MMOL/L (3.6-5.0)
[2019-11-27 08:29] LABS: INR 1.1 (0.8-1.4); PROTHROMBIN TIME PATIENT 14.4 SEC (12.2-14.7)
[2019-11-27 08:32] LABS: BILIRUBIN,TOTAL 0.3 MG/DL (0.1-1.0)
[2019-11-27 08:34] LABS: CREATININE SERUM 0.96 MG/DL (0.60-1.30)
--- NOTE | 2019-11-27 08:34 | Diagnostic Imaging Report ---
Indication: Chest pain Comparison is made to study of 02/20/2019. FINDINGS: Heart size and pulmonary vascularity are within normal limits, and the lungs are clear, bilaterally. IMPRESSION: Unremarkable chest. Dictated by: Dictated on workstation # [id number]
[2019-11-27 08:37] LABS: MAGNESIUM 1.9 MG/DL (1.6-2.4)
--- NOTE | 2019-11-27 09:15 | NUR ---
RESTING IN BED ET RATES PAIN 05/22. NOTIFIED HER DR WOULD BE IN TO SEE HER SOON AND TO CALL HER DAUGHTER.
--- NOTE | 2019-11-27 09:25 | NUR ---
IN TALKING TO THE PT AT THIS TIME.
--- NOTE | 2019-11-27 09:30 | NUR ---
TALKING TO THE DAUGHTER ON THE PHONE AT THIS TIME.
[2019-11-27] MEDS ORDERED: ISOS30TA3 PO (10:42)
--- NOTE | 2019-11-27 10:51 | NUR ---
DAUGHTER UPDATED BY PHONE. PLANS ARE TO HAVE PT WAIT IN ROOM UNTIL DAUGHTER ARRIVES.
[2019-11-27 11:11] VITALS: BP 129/72
== END 2019-11-27 11:11 | disposition home or self-care (01) ==
LOC: EDUNIT# 07:57 → ER 07:59
DX: I25.119 Atherosclerotic heart disease of native coronary artery with unspecified angina pectoris (principal); M94.0 Chondrocostal junction syndrome [Tietze]; F41.9 Anxiety disorder, unspecified; M81.0 Age-related osteoporosis without current pathological fracture; I10 Essential (primary) hypertension; E11.9 Type 2 diabetes mellitus without complications; Z95.5 Presence of coronary angioplasty implant and graft; Z88.8 Allergy status to other drugs, medicaments and biological substances; Z82.49 Family history of ischemic heart disease and other diseases of the circulatory system; Z79.4 Long term (current) use of insulin; Z79.01 Long term (current) use of anticoagulants; Z79.82 Long term (current) use of aspirin
CPT/HCPCS: 36415; 71045; 80053; 83690; 83735; 83874; 83880; 84484; 85025; 85610; 85730; 93005; 93041

== ENCOUNTER → 2020-01-11 | Outpatient (CLI) | payer MEDICARE ==
[~2020-01-11] MED LIST changes: -ACET-2715 PO; +ACET-3075 PO; +ALPR.25T PO; -ALPR0.254 PO; +AMLO-250 PO; -AMLO5TAB9 PO; +ISOS30TA3 PO; -PANT40TA3 PO; +PANT40TA52 PO
== END ==
LOC: CARD 08:00
PROVIDERS: ATTEND Internal Medicine Cardiovascular Disease
DX: I25.10 Atherosclerotic heart disease of native coronary artery without angina pectoris (principal); I35.0 Nonrheumatic aortic (valve) stenosis; I50.32 Chronic diastolic (congestive) heart failure; E11.9 Type 2 diabetes mellitus without complications
CPT/HCPCS: 93306

== ENCOUNTER → 2020-05-13 | Outpatient (CLI) | payer MEDICARE ==
[~2020-05-13] MED LIST changes: +ESCI-2 PO; -ESCI10TA55 PO; -ESCI5TAB12 PO; +ESCI5TAB16 PO; -ISOS30TA3 PO; +ISOS30TA82 PO
--- NOTE | 2020-05-13 11:31 | Diagnostic Imaging Report ---
PROCEDURE: US right lower extremity venous. TECHNIQUE: Multiple real-time grayscale images were obtained over the right lower extremity in various projections. Additional spectral analysis and color Doppler duplex images were also obtained. INDICATION: Right leg pain and edema EXAMINATION: Grayscale and color Doppler evaluation of the deep veins of the right lower extremity were performed with waveform analysis. FINDINGS: Continuous venous flow is present. No intraluminal filling defect is identified. There is normal compressibility and response to augmentation. No abnormal perivascular fluid collection is identified. IMPRESSION: No ultrasound evidence of right lower extremity deep venous thrombosis. Dictated by: Dictated on workstation # [id number]
== END ==
LOC: RAD 10:07
PROVIDERS: ATTEND Nurse Practitioner Family
DX: R60.0 Localized edema (principal); R10.31 Right lower quadrant pain; M79.604 Pain in right leg

== ENCOUNTER → 2020-05-14 | Outpatient (CLI) | payer MEDICARE ==
--- NOTE | 2020-05-14 15:49 | Diagnostic Imaging Report ---
INDICATION: Right hip pain. AP and oblique views of the right hip are obtained. No acute fracture or acute bony abnormality is seen. The hip joint space appears unremarkable. There is hypertrophy and enthesopathy of the greater trochanter. There are vascular calcifications. IMPRESSION: Chronic changes of right greater trochanter. No acute bony abnormality. Hip joint space appears unremarkable. Dictated by: Dictated on workstation # [id number]
--- NOTE | 2020-05-14 16:55 | Diagnostic Imaging Report ---
INDICATION: Right leg pain. FINDINGS: AP and lateral views of the right femur reveal previous total right knee arthroplasty. There is extensive diffuse atherosclerotic disease. There is irregularity about the greater trochanters which may be related to old injury, however no acute fracture or malalignment is seen. IMPRESSION: No acute abnormality is detected. Dictated by: Dictated on workstation # [id number]
== END ==
LOC: RAD 14:50
PROVIDERS: ATTEND Nurse Practitioner Family
DX: M25.551 Pain in right hip (principal); M79.604 Pain in right leg
CPT/HCPCS: 73502; 73552

== ENCOUNTER → 2020-05-16 | Outpatient (CLI) | payer MEDICARE ==
--- NOTE | 2020-05-16 15:18 | Diagnostic Imaging Report ---
PROCEDURE: US Bilateral lower extremity arterial. TECHNIQUE: Multiple real-time grayscale images are obtained through both lower extremity arterial systems with color Doppler imaging and color Doppler spectral analysis. INDICATION: Right lower extremity pain and peripheral vascular disease. COMPARISON: None FINDINGS: Mild atherosclerosis is seen throughout the lower extremity arterial system. There is a predominant biphasic flow pattern. Peak systolic velocities are within normal range. There is no stenosis or occlusion. There is appropriate runoff flow to the ankle mortices.. IMPRESSION: Mild diffuse atherosclerosis without stenosis or occlusion. Dictated by: Dictated on workstation # [id number]
== END ==
LOC: RAD 10:30
PROVIDERS: ATTEND Nurse Practitioner Family
DX: I70.293 Other atherosclerosis of native arteries of extremities, bilateral legs (principal); I73.9 Peripheral vascular disease, unspecified
CPT/HCPCS: 93925

== ENCOUNTER → 2020-06-25 | Outpatient (CLI) | payer MEDICARE ==
[2020-06-25 13:37] LABS: BACTERIA,URINE MODERATE /HPF; BILIRUBIN,URINE NEGATIVE (NEGATIVE); CLARITY,URINE CLEAR; COLOR,URINE YELLOW; GLUCOSE, URINE (UA) NEGATIVE (NEGATIVE); KETONES,URINE NEGATIVE (NEGATIVE); LEUKOCYTE ESTERASE ,URINE TRACE (NEGATIVE); NITRITE,URINE NEGATIVE (NEGATIVE); PH,URINE 6 (5-9); PROTEIN,URINE 1+ (NEGATIVE)
== END ==
LOC: LABNPT 06:00
PROVIDERS: ATTEND Thoracic Surgery (Cardiothoracic Vascular Surgery)
DX: Z01.812 Encounter for preprocedural laboratory examination (principal); N39.0 Urinary tract infection, site not specified; I35.0 Nonrheumatic aortic (valve) stenosis
CPT/HCPCS: 81000; 87088

== ENCOUNTER 2020-07-14 09:30 | Emergency (ER) | payer MEDICARE ==
[~2020-07-14] VITALS: Ht 160 cm; Wt 68.0 kg
[2020-07-14 10:23] LABS: BASOPHILS % (AUTO) 1 % (0-10); EOSINOPHILS # (AUTO) 0.1 10^3/uL (0.0-0.3); EOSINOPHILS % (AUTO) 1 % (0-10); HEMATOCRIT 35 % (35-52); HEMOGLOBIN 10.7 g/dL (11.5-16.0); LYMPHOCYTES # (AUTO) 0.8 10^3/uL (1.0-4.0); LYMPHOCYTES % (AUTO) 16 % (12-44); MEAN CORPUSCULAR HEMOGLOBIN 28 pg (25-34); MEAN CORPUSCULAR HGB CONC 31 g/dL (32-36); MEAN CORPUSCULAR VOLUME 91 fL (80-99); MEAN PLATELET VOLUME 9.8 fL (9.0-12.2); MONOCYTES # (AUTO) 0.3 10^3/uL (0.0-1.0); MONOCYTES % (AUTO) 5 % (0-12); NEUTROPHILS # (AUTO) 4.2 10^3/uL (1.8-7.8); NEUTROPHILS % (AUTO) 78 % (42-75); PLATELET COUNT 336 10^3/uL (130-400); WHITE BLOOD COUNT 5.4 10^3/uL (4.3-11.0)
[2020-07-14 10:24] LABS: ALBUMIN 4.3 GM/DL (3.2-4.5); CHLORIDE 98 MMOL/L (98-107); POTASSIUM 4.4 MMOL/L (3.6-5.0); SODIUM 136 MMOL/L (135-145)
[2020-07-14 10:25] LABS: CALCIUM 9.2 MG/DL (8.5-10.1)
[2020-07-14 10:26] LABS: GLUCOSE 206 MG/DL (70-105)
[2020-07-14 10:27] LABS: TOTAL PROTEIN 6.9 GM/DL (6.4-8.2)
[2020-07-14 10:28] LABS: BILIRUBIN,TOTAL 0.4 MG/DL (0.1-1.0); CARBON DIOXIDE 27 MMOL/L (21-32)
[2020-07-14 10:30] LABS: ALKALINE PHOSPHATASE 68 U/L (40-136); CREATININE SERUM 1.26 MG/DL (0.60-1.30); GFR ESTIMATED 41
[2020-07-14 10:30] LABS: BILIRUBIN,URINE NEGATIVE (NEGATIVE); CLARITY,URINE SL CLOUDY; COLOR,URINE YELLOW; GLUCOSE, URINE (UA) NEGATIVE (NEGATIVE); KETONES,URINE NEGATIVE (NEGATIVE); LEUKOCYTE ESTERASE ,URINE 2+ (NEGATIVE); NITRITE,URINE NEGATIVE (NEGATIVE); PROTEIN,URINE NEGATIVE (NEGATIVE)
[2020-07-14 10:31] LABS: BUN/CREATININE RATIO 24
[2020-07-14 10:33] LABS: ALANINE AMINOTRANSFERASE 8 U/L (0-55)
--- NOTE | 2020-07-14 10:36 | Diagnostic Imaging Report ---
Indication: Lightheadedness and dyspnea. Comparison: 11/27/2019. Discussion: Single portable upright view of the chest was obtained. Normal heart size. No consolidation, pleural fluid, or pneumothorax. No osseous abnormality. Impression: 1. Negative portable chest. Dictated by: Dictated on workstation # [id number]
[2020-07-14 10:49] LABS: BACTERIA,URINE LARGE /HPF; WBC,URINE 25-50 /HPF
[2020-07-14] MEDS ORDERED: NS IV 500 ML 500 ML IV ONE (11:45)
--- NOTE | 2020-07-14 12:12 | ED General ---
General Chief Complaint: General Problems/Pain Stated Complaint: LIGHT HEADED - N/V Nursing Triage Note: PT AMB TO [facility] 6 WITH COMPLAINT OF [place] AND LIGHTHEADEDNESS. STATES 3 WEEKS AGO SHE HAD A HEART VALVE REPLACED AT [facility] BY DR SANCHEZ. STATES SHE HAS NOT FELT WELL SINCE. STATES IS HAVING INCREASED RIGHT GROIN PAIN AND HER BLOOD SUGAR HAS BEEN ELEVATED. AT TIME OF SURGERY, SHE WAS BEING TREATED FOR UTI. STATES THIS MORNING AT [employer] SHE BECAME DIZZY AND FELT SHE WAS GOING TO VOMIT. Nursing Sepsis Screen: No Definite Risk Source of Information: Patient, Old Records Exam Limitations: No Limitations History of Present Illness Date Seen by Provider: July 14, 2020 Time Seen by Provider: 09:54 Initial Comments This is 79-year-old woman presents to the emergency room with complaints of feeling lightheaded today. Lightheadedness was accompanied by diaphoresis. This occurred while she was at a latter-day event this morning. She also had an episode last night. She recently had a heart valve procedure performed at [facility] and has been having pain in the right thigh since then. She reports right thigh pain was evaluated by ultrasound and her postoperative fo llow-up appointment. She reports blood sugars have been running a little high lately so she does not believe these episodes were hypoglycemic events. She vomited last night and again this morning. She denies chest pain or SOA. She describes no focal neurological deficits. Allergies and Home Medications Allergies Coded Allergies: canagliflozin (Verified Allergy, Severe, LIGHT HEADED/HEADACHES/UTI/FELT LIKE SHE WOULD PASS OUT, 02/19/19) liraglutide (Verified Allergy, Severe, RAPID HEART RATE/HEADACHE/DIZZINESS, 02/19/19) Gwhkwtq-Uzn-Lio Reductase Inhibitor (Verified Adverse Reaction, Severe, MUSCLE PAIN, 02/19/19) Home Medications Acetaminophen 500 Mg Tablet, 500-1,000 MG PO Q4H PRN for PAIN-MILD, (Reported) Acetaminophen/Diphenhydramine 1 Each Tablet, 1 TAB PO HS, (Reported) Allopurinol 100 Mg Tablet, 100 MG PO DAILY, (Reported) Amlodipine Besylate 5 Mg Tablet, 5 MG PO DAILY, (Reported) Apixaban 5 Mg Tablet, 5 MG PO BID, (Reported) Aspirin 81 Mg Tab.chew, 81 MG PO DAILY, (Reported) Cephalexin 500 Mg Tablet, 500 MG PO TID Prescribed by: JHOAN RUSH on 07/14/20 1220 Cranberry Fruit 450 Mg Tablet, 450 MG PO DAILY, (Reported) Escitalopram Oxalate 10 Mg Tablet, 10 MG PO DAILY, (Reported) Ezetimibe 10 Mg Tablet, 10 MG PO HS, (Reported) Fluticasone Propionate 16 Gm [place].susp, 1 SPRAY NS BID PRN for ALLERGIES, (Reported) Furosemide 40 Mg Tablet, 40 MG PO DAILY Prescribed by: LIDIA TAN on 02/21/19 1003 Gabapentin 600 Mg Tablet, 600 MG PO BID PRN for NERVE PAIN, (Reported) Insulin Glargine,Hum.rec.anlog 100 Unit/1 Ml Vial, 20 UNIT SQ DAILY, (Reported) Isosorbide Mononitrate 30 Mg Tab.er.24h, 30 MG PO DAILY Prescribed by: BRITTANY PENA on 11/27/19 1042 Levothyroxine Sodium 50 Mcg Tablet, 50 MCG PO DAILY, (Reported) Metoprolol Succinate 100 Mg Tab.er.24h, 100 MG PO BID, (Reported) Rentz-3S/Dha/Epa/Fish Oil 1 Each Capsule.dr, 1 EACH PO DAILY, (Reported) Ondansetron 4 Mg Tab.rapdis, 4 MG SL Q4H PRN for NAUSEA/VOMITING Prescribed by: JHOAN RUSH on 07/14/20 1220 Pancreat/Bet HCl/Pep/Brom/Pap 1 Each Capsule, 1 EACH PO TID, (Reported) Pantoprazole Sodium 40 Mg Tablet.dr, 40 MG PO DAILY, (Reported) Potassium Chloride 20 Meq Tablet.er, 20 MEQ PO DAILY PRN for SWELLLING, (Reported) Sacubitril/Valsartan 1 Each Tablet, 1 TAB PO BID, (Reported) Tramadol HCl 50 Mg Tablet, 50 MG PO Q6H PRN for PAIN-MILD (1-4), (Reported) Patient Home Medication List Home Medication List Reviewed: Yes Review of Systems Review of Systems Constitutional: see HPI EENTM: no symptoms reported Respiratory: no symptoms reported Cardiovascular: see HPI Gastrointestinal: see HPI Genitourinary: no symptoms reported : No Musculoskeletal: no symptoms reported Skin: no symptoms reported Psychiatric/Neurological: See HPI Hematologic/Lymphatic: No Symptoms Reported Immunological/Allergic: no symptoms reported Past Czpwoik-Ghiahn-Hqsuli Hx Past Med/Social Hx: Reviewed Nursing Past Med/Soc Hx Patient Social History Alcohol Use: Rarely Uses Number of Drinks Today: Alcohol Beverage of Choice: Wine Smoking Status: Never a Smoker 2nd Hand Smoke Exposure: No Recent Infectious Disease Expo: No Recent Hopitalizations: No Immunizations Up To Date Tetanus Booster (TDap): Unknown PED Vaccines UTD: No Date of Pneumonia Vaccine: Feb 14, 2017 Date of Influenza Vaccine: Dec 29, 2018 Seasonal Allergies Seasonal Allergies: Yes Past Medical History Surgeries: Yes (bilat TKR, bilat carpal tunnel, R ROTATOR CUFF) Bladder Surgery, Coronary Stent, Gallbladder, Hysterectomy, Orthopedic, Tonsillectomy, Valve Replacement (unknown procedure) Respiratory: No Currently Using CPAP: No Currently Using BIPAP: No Cardiac: Yes (aortic stenosis, carotid stenosis, cardiac stent) Coronary Artery Disease, High Cholesterol, Hypertension, Peripheral Vascular, Valvular Heart Disease Neurological: No Genitourinary: No UTI-Chronic Gastrointestinal: Yes Hiatal Hernia, Gall Bladder Disease Musculoskeletal: Yes Osteoporosis, Arthritis Endocrine: Yes Diabetes, Non-Insulin dep HEENT: No Loss of Vision: Denies Hearing Impairment: Denies Cancer: No Psychosocial: Yes Anxiety Integumentary: No Blood Disorders: No Family Medical History Cardiovascular disease Congenital heart disease 19 FATHER 19 MOTHER G8 BROTHER G8 BROTHER Diabetes mellitus 19 FATHER G8 BROTHER G8 BROTHER Hypertension Myocardial infarction 19 FATHER Heart Disease, Hypertension Physical Exam Vital Signs Vital Signs - First Documented 07/14/20 09:37 Temp 35.2 Pulse 79 Resp 12 B/P (MAP) 168/78 (108) Pulse Ox 94 O2 Delivery Room Air Capillary Refill : Less Than 3 Seconds Height, Weight, BMI Height: 5'3.00" Weight: 144lbs. 0.0oz. [id number]; 26.00 BMI Method:Stated General Appearance: No Apparent Distress, WD/WN HEENT: PERRL/EOMI, Normal ENT Inspection Neck: Normal Inspection; No JVD Respiratory: Lungs Clear, Normal Breath Sounds, No Accessory Muscle Use Cardiovascular: Regular Rate, Rhythm, No Edema, No Murmur, Normal Peripheral Pulses (strong pedal pulses bilaterally) Gastrointestinal: Non Tender, Soft; No Distended Extremity: Normal Inspection, No Pedal Edema, Other (Tenderness in the right anterior thigh without any visible or palpable abnormality) Neurologic/Psychiatric: Alert, Oriented x3, No Motor/Sensory Deficits, Normal Mood/Affect, sizing end bander II-XII Norm as Tested Skin: Normal Color, Warm/Dry Procedures/Interventions Date of ETT Placement: Dec 02, 2017 Time of ETT Placement: 175 Progress/Results/Core Measures Suspected Sepsis Recent Fever Within 48 Hours: No Infection Criteria Present: None New/Unexplained Altered Menta: No Sepsis Screen: No Definite Risk SIRS Temperature: Pulse: 79 Respiratory Rate: 12 Laboratory Tests 07/14/20 09:55: White Blood Count 5.4 Blood Pressure 168 /78 Mean: 108 Laboratory Tests 07/14/20 09:55: Creatinine 1.26, Platelet Count 336, Total Bilirubin 0.4 Results/Orders Lab Results Laboratory Tests Test 07/14/20 09:50 07/14/20 09:55 07/14/20 10:23 Range/Units Glucometer 204 H 70-110 MG/DL White Blood Count 5.4 4.3-11.0 10^3/uL Red Blood Count 3.80 3.80-5.11 10^6/uL Hemoglobin 10.7 L 11.5-16.0 g/dL Hematocrit 35 35-52 % Mean Corpuscular Volume 91 80-99 fL Mean Corpuscular Hemoglobin 28 25-34 pg Mean Corpuscular Hemoglobin Concent 31 L 32-36 g/dL Red Cell Distribution Width 14.3 10.0-14.5 % Platelet Count 336 130-400 10^3/uL Mean Platelet Volume 9.8 9.0-12.2 fL Immature Granulocyte % (Auto) 0 % Neutrophils (%) (Auto) 78 H 42-75 % Lymphocytes (%) (Auto) 16 12-44 % Monocytes (%) (Auto) 5 0-12 % Eosinophils (%) (Auto) 1 0-10 % Basophils (%) (Auto) 1 0-10 % Neutrophils # (Auto) 4.2 1.8-7.8 10^3/uL Lymphocytes # (Auto) 0.8 L 1.0-4.0 10^3/uL Monocytes # (Auto) 0.3 0.0-1.0 10^3/uL Eosinophils # (Auto) 0.1 0.0-0.3 10^3/uL Basophils # (Auto) 0.0 0.0-0.1 10^3/uL Immature Granulocyte # (Auto) 0.0 0.0-0.1 10^3/uL Sodium Level 136 135-145 MMOL/L Potassium Level 4.4 3.6-5.0 MMOL/L Chloride Level 98 98-107 MMOL/L Carbon Dioxide Level 27 21-32 MMOL/L Anion Gap 11 5-14 MMOL/L Blood Urea Nitrogen 30 H 7-18 MG/DL Creatinine 1.26 0.60-1.30 MG/DL Estimat Glomerular Filtration Rate 41 BUN/Creatinine Ratio 24 Glucose Level 206 H 70-105 MG/DL Calcium Level 9.2 8.5-10.1 MG/DL Corrected Calcium 9.0 8.5-10.1 MG/DL Magnesium Level 2.0 1.6-2.4 MG/DL Total Bilirubin 0.4 0.1-1.0 MG/DL Aspartate Amino Transf (AST/SGOT) 14 5-34 U/L Alanine Aminotransferase (ALT/SGPT) 8 0-55 U/L Alkaline Phosphatase 68 40-136 U/L Troponin I < 0.028 <0.028 NG/ML Total Protein 6.9 6.4-8.2 GM/DL Albumin 4.3 3.2-4.5 GM/DL Thyroid Stimulating Hormone (TSH) 1.25 0.35-4.94 UIU/ML Free Thyroxine 1.17 0.70-1.48 NG/DL Urine Color YELLOW Urine Clarity SL CLOUDY Urine pH 6.0 5-9 Urine Specific [place] 1.020 1.016-1.022 Urine Protein NEGATIVE NEGATIVE Urine Glucose (UA) NEGATIVE NEGATIVE Urine Ketones NEGATIVE NEGATIVE Urine Nitrite NEGATIVE NEGATIVE Urine Bilirubin NEGATIVE NEGATIVE Urine Urobilinogen 0.2 < = 1.0 MG/DL Urine Leukocyte Esterase 2+ H NEGATIVE Urine RBC (Auto) NEGATIVE NEGATIVE Urine RBC NONE /HPF Urine WBC 25-50 H /HPF Urine Squamous Epithelial Cells 5-10 /HPF Urine Crystals NONE /LPF Urine Bacteria LARGE H /HPF Urine Casts NONE /LPF Urine Mucus NEGATIVE /LPF Urine Culture Indicated YES My Orders Orders - JHOAN KULKARNI MD Cbc With Automated Diff (07/14/20 10:11) Comprehensive Metabolic Panel (07/14/20 10:11) Magnesium (07/14/20 10:11) Ua Culture If Indicated (07/14/20 10:11) Ed Iv/Invasive Line Start (07/14/20 10:11) Ekg Tracing (07/14/20 10:11) Monitor-Rhythm Ecg Trace Only (07/14/20 10:11) Troponin I (07/14/20 10:11) Chest 1 View, Ap/Pa Only (07/14/20 10:12) Urine Culture (07/14/20 10:23) Ns Iv 500 Ml (Sodium Chloride 0.9%) (07/14/20 11:45) Ceftriaxone For Iv Use (Rocephin For I (07/14/20 12:15) Ondansetron Injection (Zofran Injectio (07/14/20 12:15) Thyroid Stimulating Hormone (07/14/20 12:16) Free T4 (Free Thyroxine) (07/14/20 12:16) Medications Given in ED Current Medications Medications Dose Ordered Sig/Jose Enrique Route Start Time Stop Time Status Last Admin Dose Admin Ceftriaxone Sodium 1000 mg/ Sterile Water 10 ml @ 200 mls/hr ONCE ONCE IV 07/14/20 12:15 07/14/20 12:17 DC 07/14/20 12:20 200 MLS/HR Sodium Chloride 500 ml @ 0 mls/hr Q0M ONCE IV 07/14/20 11:45 07/14/20 11:46 DC 07/14/20 11:48 0 MLS/HR Vital Signs/I&O 07/14/20 07/14/20 09:37 12:31 Temp 35.2 Pulse 79 78 Resp 12 12 B/P (MAP) 168/78 (108) 154/80 Pulse Ox 94 96 O2 Delivery Room Air Room Air Capillary Refill : Less Than 3 Seconds Blood Pressure Mean: 108 Point of Care Testing Finger Stick Blood Glucose: 204 Blood Glucose Action Taken: RN Notified Progress Note : Progress Note Work-up was relatively unremarkable except for slightly elevated creatinine from baseline and urinary tract infection. She was treated with Rocephin and 500 mL normal saline bolus. It was also noted on her prescription filling record that she was recently prescribed baclofen. This could be contributing to her lightheadedness. She was instructed to refrain from taking baclofen until follow-up. The postoperative pain in her right thigh is of undetermined etiology. However, this has been unchanged since she had an ultrasound exam performed at her office follow-up. ECG Initial ECG Impression Date: July 14, 2020 Initial ECG Impression Time: 09:56 Initial ECG Rate: 74 Initial ECG Rhythm: Normal Sinus Comment Sinus rhythm with right bundle branch block. No ST elevation or depression. Probable LVH. Diagnostic Imaging Diagonstic Imaging: Xray Plain Films/CT/US/NM/MRI: chest Comments NAME: CAMERON WHITAKER [facility] REC#: [id number] PT STATUS: DEP ER : 1940 PHYSICIAN: JHOAN KULKARNI MD ADMIT DATE: 07/14/20/ER Signed Date of Exam:07/14/20 CHEST 1 VIEW, AP/PA ONLY Indication: Lightheadedness and dyspnea. Comparison: 11/27/2019. Discussion: Single portable upright view of the chest was obtained. Normal heart size. No consolidation, pleural fluid, or pneumothorax. No osseous abnormality. Impression: 1. Negative portable chest. Dictated by: Dictated on workstation # [id number] Dict: 07/14/20 1033 Trans: 07/14/[address] [facility] [id number] Interpreted by: LORA KEENAN MD Electronically signed by: LORA KEENAN MD 07/14/20 1634 Departure Impression Primary Impression: Urinary tract infection Qualified Codes: N39.0 - Urinary tract infection, site not specified Additional Impressions: Lightheadedness Postoperative pain Nausea and vomiting Qualified Codes: R11.2 - Nausea with vomiting, unspecified Disposition: 01 HOME, SELF-CARE Condition: Improved Departure-Patient Inst. Decision time for Depature: 12:17 Referrals: BLAKE ESCOBAR DO (PCP/Family) Primary Care Physician Patient Instructions: Urinary Tract Infection, Adult ED Add. Discharge Instructions: Drink plenty of clear liquids to stay well-hydrated. Complete your antibiotics as prescribed. Follow-up with your primary care provider early this week to review urine culture results and thyroid study results. Your medication filling record suggest you were recently prescribed baclofen. This medication can cause drowsiness and lightheadedness. I would suggest stopping this medication until you can discuss it further with your primary care provider. If you have symptoms of sweating and lightheadedness again, check your blood sugar at that time and treat appropriately. If you have persistent, worsening, or new symptoms, please return to care in the ER. Call with questions or concerns. All discharge instructions reviewed with patient and/or family. Voiced understanding. Scripts Cephalexin (Cephalexin) 500 Mg Tablet 500 MG PO TID, #20 TAB Prov: JHOAN KULKARNI MD 07/14/20 Ondansetron (Ondansetron Odt) 4 Mg Tab.rapdis 4 MG SL Q4H PRN for NAUSEA/VOMITING, #10 TAB Prov: JHOAN KULKARNI MD 07/14/20 Copy Copies To 1: BLAKE ESCOBAR DO Copies To 2: KATIE COLEMAN MD, JOSHUA T MD July 14, 2020 12:12
[2020-07-14] MEDS ORDERED: cefTRIAXone FOR IV USE 1,000 MG in WATER (STERILE) FOR INJECTION 10 ML IV ONE (12:15)
[2020-07-14] MEDS ORDERED: ONDANSETRON 4 MG/2 ML (SDV) Z0FRAN IVP ONE (12:15)
[2020-07-14] MEDS ORDERED: CEPH500T PO (12:20)
[2020-07-14] MEDS ORDERED: ONDA4TAB11 SL (12:20)
[2020-07-14 12:31] VITALS: BP 154/80
[2020-07-14 12:57] LABS: FREE T4 (FREE THYROXINE) 1.17 NG/DL (0.70-1.48)
== END 2020-07-14 12:31 | disposition home or self-care (01) ==
LOC: EDUNIT# 09:30 → ER 09:31
DX: N39.0 Urinary tract infection, site not specified (principal); R42 Dizziness and giddiness; G89.18 Other acute postprocedural pain; R11.2 Nausea with vomiting, unspecified; I10 Essential (primary) hypertension; E78.00 Pure hypercholesterolemia, unspecified; I25.10 Atherosclerotic heart disease of native coronary artery without angina pectoris; F41.9 Anxiety disorder, unspecified; E11.9 Type 2 diabetes mellitus without complications; Z88.8 Allergy status to other drugs, medicaments and biological substances; Z79.01 Long term (current) use of anticoagulants; Z79.82 Long term (current) use of aspirin; Z79.899 Other long term (current) drug therapy
CPT/HCPCS: 36415; 71045; 80053; 81000; 82947; 83735; 84439; 84443; 84484; 85025; 87077; 87088; 87186; 93005; 93041

== ENCOUNTER → 2020-07-29 | Outpatient (CLI) | payer MEDICARE ==
[~2020-07-29] MED LIST changes: +CEPH500T PO; +ONDA4TAB11 SL
== END ==
LOC: CARD 09:06
PROVIDERS: ATTEND Internal Medicine Cardiovascular Disease
DX: I08.0 Rheumatic disorders of both mitral and aortic valves (principal); Z95.2 Presence of prosthetic heart valve
CPT/HCPCS: 93306

== ENCOUNTER 2020-08-14 21:33 | Observation (INO) | payer MEDICARE ==
[~2020-08-14] VITALS: Ht 160 cm; Wt 76.0 kg
--- NOTE | 2020-08-14 22:27 | ED General ---
General Stated Complaint: FALLING/DIZINESS/VOMMITTING Source of Information: Patient (SOMEWHAT LIMITED HISTORIAN ABOUT PMH AND DOES NOT KNOW MEDICATIONS) History of Present Illness Date Seen by Provider: Aug 14, 2020 Time Seen by Provider: 22:19 Initial Comments PT ARRIVES VIA POV FROM HOME, WANTS WHEELCHAIR ON ARRIVAL PT STATS SHE SAW DR. ESCOBAR YESTERDAY AND WAS DX WITH UTI AND PLACED ON MACROBID. STATES THIS IS 4TH UTI THIS YEAR PT STATES SHE FELL YESTERDAY IN [employer] [place], A LITTLE BEFORE NOON, HITTING THE LEFT SIDE OF HER HEAD/MANDAEN AREA--AFTER DR. ESCOBAR'S VISIT STATES THIS IS THE 4TH TIME SHE HAS FALLEN THIS YEAR. NO LOSS OF CONSCIOUSNESS/ NO SYNCOPE AT ANY TIME C/O NECK AND BACK PAIN C/O HEADACHE IN BACK OF HEAD C/O DIZZINESS AND DIFFICULTY WALKING--IS OFF BALANCE C/O NAUSEA AND VOMITED X 1 TODAY STATES SHE HAD BLURRY VISION IN BOTH EYES FOR ABOUT AN HOUR THIS AFTERNOON, THEN IT WENT AWAY AND HAS NOT HAD ANY PROBLEMS SINCE STATES "I JUST DON'T FEEL LIKE MYSELF" PT HAD VALVE REPLACEMENT 06/27/20 AT [facility] AND IS ELIQUIS ? TAVR ?? NO CHEST PAIN NO SHORTNESS OF BREATH NO PALPITATIONS NO ABDOMINAL PAIN NO DIARRHEA NO FEVER/SWEATS/CHILLS NO COUGH OR RECENT ILLNESS PCP: DR. ESCOBAR Allergies and Home Medications Allergies Coded Allergies: canagliflozin (Verified Allergy, Severe, LIGHT HEADED/HEADACHES/UTI/FELT LIKE SHE WOULD PASS OUT, 02/19/19) liraglutide (Verified Allergy, Severe, RAPID HEART RATE/HEADACHE/DIZZI NESS, 02/19/19) Vgrzmkg-Bpd-Fdi Reductase Inhibitor (Verified Adverse Reaction, Severe, MUSCLE PAIN, 02/19/19) Home Medications Acetaminophen 500 Mg Tablet, 500-1,000 MG PO Q4H PRN for PAIN-MILD, (Reported) Acetaminophen/Diphenhydramine 1 Each Tablet, 1 TAB PO HS, (Reported) Allopurinol 100 Mg Tablet, 100 MG PO DAILY, (Reported) Amlodipine Besylate 5 Mg Tablet, 5 MG PO DAILY, (Reported) Apixaban 5 Mg Tablet, 5 MG PO BID, (Reported) Aspirin 81 Mg Tab.chew, 81 MG PO DAILY, (Reported) Cephalexin 500 Mg Tablet, 500 MG PO TID Prescribed by: JHOAN RUSH on 07/14/20 1220 Cranberry Fruit 450 Mg Tablet, 450 MG PO DAILY, (Reported) Escitalopram Oxalate 10 Mg Tablet, 10 MG PO DAILY, (Reported) Ezetimibe 10 Mg Tablet, 10 MG PO HS, (Reported) Fluticasone Propionate 16 Gm [place].susp, 1 SPRAY NS BID PRN for ALLERGIES, (Reported) Furosemide 40 Mg Tablet, 40 MG PO DAILY Prescribed by: LIDIA TAN on 02/21/19 1003 Gabapentin 600 Mg Tablet, 600 MG PO BID PRN for NERVE PAIN, (Reported) Insulin Glargine,Hum.rec.anlog 100 Unit/1 Ml Vial, 20 UNIT SQ DAILY, (Reported) Isosorbide Mononitrate 30 Mg Tab.er.24h, 30 MG PO DAILY Prescribed by: BRITTANY PENA on 11/27/19 1042 Levothyroxine Sodium 50 Mcg Tablet, 50 MCG PO DAILY, (Reported) Metoprolol Succinate 100 Mg Tab.er.24h, 100 MG PO BID, (Reported) Marshall-3S/Dha/Epa/Fish Oil 1 Each Capsule.dr, 1 EACH PO DAILY, (Reported) Ondansetron 4 Mg Tab.rapdis, 4 MG SL Q4H PRN for NAUSEA/VOMITING Prescribed by: JHOAN RUSH on 07/14/20 1220 Pancreat/Bet HCl/Pep/Brom/Pap 1 Each Capsule, 1 EACH PO TID, (Reported) Pantoprazole Sodium 40 Mg Tablet.dr, 40 MG PO DAILY, (Reported) Potassium Chloride 20 Meq Tablet.er, 20 MEQ PO DAILY PRN for SWELLLING, (Rep orted) Sacubitril/Valsartan 1 Each Tablet, 1 TAB PO BID, (Reported) Tramadol HCl 50 Mg Tablet, 50 MG PO Q6H PRN for PAIN-MILD (1-4), (Reported) Patient Home Medication List Home Medication List Reviewed: Yes Review of Systems Review of Systems Constitutional: see HPI; No chills, No diaphoresis; dizziness; No fever, No malaise, No weakness EENTM: see HPI, blurred vision Respiratory: no symptoms reported; No cough, No short of breath Cardiovascular: no symptoms reported; No chest pain, No edema, No palpitations, No syncope Gastrointestinal: see HPI; No abdominal pain, No diarrhea; nausea, vomiting Genitourinary: no symptoms reported Musculoskeletal: see HPI, back pain Skin: see HPI (ABRASION TO LEFT MANDAEN AREA) Psychiatric/Neurological: See HPI, Headache; Denies Numbness, Denies Paresthesia, Denies Seizure, Denies Tingling Hematologic/Lymphatic: See HPI; Denies Blood Clots Immunological/Allergic: no symptoms reported Past Iztodic-Ailvoi-Jhvhzf Hx Past Med/Social Hx: Reviewed and Corrections made Patient Social History Alcohol Beverage of Choice: Wine 2nd Hand Smoke Exposure: No Recent Hopitalizations: No Immunizations Up To Date Tetanus Booster (TDap): Unknown PED Vaccines UTD: No Date of Pneumonia Vaccine: Feb 14, 2017 Date of Influenza Vaccine: Dec 29, 2018 Seasonal Allergies Seasonal Allergies: Yes Past Medical History Surgeries: Yes (BILAT TKR;BILAT CARPAL TUNNEL;R ROTATOR CUFF;VALVE REPLACEMENT;OVARIAN CYST) Bladder Surgery, Cardiac, Coronary Stent, Gallbladder, Hysterectomy, Joint Replacement, Oophorectomy, Orthopedic, Tonsillectomy, Valve Replacement Respiratory: No Currently Using CPAP: No Currently Using BIPAP: No Cardiac: Yes (aortic stenosis;carotid stenosis;cardiac stent;VALVE REPL 06/27/20;RBBB;CHF) Atrial Fibrillation, Cardiomyopathy, Coronary Artery Disease, High Cholesterol, Hypertension, Peripheral Vascular, Valvular Heart Disease Neurological: Yes Neuropathy 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: Hysterectomy, Menopausal Genitourinary: Yes (NO DIALYSIS) Renal Failure, UTI-Chronic Gastrointestinal: Yes Gastroesophageal Reflux, Hiatal Hernia, Gall Bladder Disease Musculoskeletal: Yes Osteoporosis, Arthritis Endocrine: Yes Diabetes, Insulin dep, Hypothyroidsim HEENT: No (GLASSES) Loss of Vision: Denies Hearing Impairment: Denies Cancer: No Psychosocial: Yes Anxiety Integumentary: No Blood Disorders: No Family Medical History Cardiovascular disease Congenital heart disease 19 FATHER 19 MOTHER G8 BROTHER G8 BROTHER Diabetes mellitus 19 FATHER G8 BROTHER G8 BROTHER Hypertension Myocardial infarction 19 FATHER Heart Disease, Hypertension ADDITIONAL PAST SURGICAL/PROCEDURAL HISTORY: -CARDIAC CATH 07/25/[address] LOPEZ: PATENT MID VESSEL STENT TO LAD ( [address] BEATTY AT [facility]) AND CHRONIC TOTAL OCCLUSION OF FIRST DIAGONAL. REST OF CORONARY ARTERIES HAVE MODERATE DIFFUSE PLAQUE. EF 60%. MODERATE AORTIC STENOSIS Physical Exam Vital Signs Vital Signs - First Documented 08/14/20 22:41 Temp 37.1 Pulse 98 Resp 18 B/P (MAP) 168/91 (116) O2 Delivery Room Air Capillary Refill : Height, Weight, BMI Height: 5'3.00" Weight: 144lbs. 0.0oz. 65.118894ls; 26.00 BMI Method:Stated General Appearance: No Apparent Distress, WD/WN HEENT: PERRL/EOMI, TMs Normal, Pharynx Normal, Other (LEFT PERIORBITAL HEMATOMA, WITH MINOR ABRASION TO LEFT MANDAEN AREA. NO SUBCONJUNCTIVAL HEMORRHAGE. 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 ) Skin: Normal Color, Warm/Dry, Ecchymosis (AND ABRASION TO LEFT PERIORBITAL AREA) Procedures/Interventions Date of ETT Placement: Dec 02, 2017 Time of ETT Placement: 1753 Progress/Results/Core Measures Suspected Sepsis SIRS Temperature: Pulse: Respiratory Rate: Laboratory Tests 08/14/20 22:33: White Blood Count 16.3H Blood Pressure / Mean: Laboratory Tests 08/14/20 22:33: Creatinine 1.10, Platelet Count 318, Total Bilirubin 0.4 08/14/20 22:50: INR Comment 0.9 Results/Orders Lab Results Laboratory Tests Test 08/14/20 22:33 08/14/20 22:50 Range/Units White Blood Count 16.3 H 4.3-11.0 10^3/uL Red Blood Count 4.23 3.80-5.11 10^6/uL Hemoglobin 12.1 11.5-16.0 g/dL Hematocrit 38 35-52 % Mean Corpuscular Volume 89 80-99 fL Mean Corpuscular Hemoglobin 29 25-34 pg Mean Corpuscular Hemoglobin Concent 32 32-36 g/dL Red Cell Distribution Width 14.2 10.0-14.5 % Platelet Count 318 130-400 10^3/uL Mean Platelet Volume 10.2 9.0-12.2 fL Immature Granulocyte % (Auto) 1 % Neutrophils (%) (Auto) 94 H 42-75 % Lymphocytes (%) (Auto) 3 L 12-44 % Monocytes (%) (Auto) 2 0-12 % Eosinophils (%) (Auto) 0 0-10 % Basophils (%) (Auto) 0 0-10 % Neutrophils # (Auto) 15.3 H 1.8-7.8 10^3/uL Lymphocytes # (Auto) 0.5 L 1.0-4.0 10^3/uL Monocytes # (Auto) 0.4 0.0-1.0 10^3/uL Eosinophils # (Auto) 0.0 0.0-0.3 10^3/uL Basophils # (Auto) 0.0 0.0-0.1 10^3/uL Immature Granulocyte # (Auto) 0.1 0.0-0.1 10^3/uL Neutrophils % (Manual) 89 % Lymphocytes % (Manual) 5 % Band Neutrophils 6 % Toxic Granulation 1+ Sodium Level 137 135-145 MMOL/L Potassium Level 4.4 3.6-5.0 MMOL/L Chloride Level 99 98-107 MMOL/L Carbon Dioxide Level 24 21-32 MMOL/L Anion Gap 14 5-14 MMOL/L Blood Urea Nitrogen 24 H 7-18 MG/DL Creatinine 1.10 0.60-1.30 MG/DL Estimat Glomerular Filtration Rate 48 BUN/Creatinine Ratio 22 Glucose Level 259 H 70-105 MG/DL Calcium Level 9.5 8.5-10.1 MG/DL Corrected Calcium 8.5-10.1 MG/DL Magnesium Level 1.9 1.6-2.4 MG/DL Total Bilirubin 0.4 0.1-1.0 MG/DL Aspartate Amino Transf (AST/SGOT) 15 5-34 U/L Alanine Aminotransferase (ALT/SGPT) 7 0-55 U/L Alkaline Phosphatase 64 40-136 U/L Total Creatine Kinase 52 29-168 U/L Creatine Kinase MB 2.2 <6.6 NG/ML Myoglobin 34.0 10.0-92.0 NG/ML Troponin I < 0.028 <0.028 NG/ML B-Type Natriuretic Peptide 432.4 H <100.0 PG/ML Total Protein 7.3 6.4-8.2 GM/DL Albumin 4.6 H 3.2-4.5 GM/DL Amylase Level 35 25-125 U/L Lipase 23 8-78 U/L TSH Kemp Testing 1.41 0.35-4.94 UIU/ML Prothrombin Time 12.5 12.2-14.7 SEC INR Comment 0.9 0.8-1.4 Activated Partial Thromboplast Time 29 24-35 SEC Urine Color YELLOW Urine Clarity CLEAR Urine pH 6.0 5-9 Urine Specific [place] 1.010 L 1.016-1.022 Urine Protein NEGATIVE NEGATIVE Urine Glucose (UA) 3+ H NEGATIVE Urine Ketones NEGATIVE NEGATIVE Urine Nitrite NEGATIVE NEGATIVE Urine Bilirubin NEGATIVE NEGATIVE Urine Urobilinogen 0.2 < = 1.0 MG/DL Urine Leukocyte Esterase NEGATIVE NEGATIVE Urine RBC (Auto) NEGATIVE NEGATIVE Urine RBC /HPF Urine WBC /HPF Urine Crystals /LPF Urine Bacteria /HPF Urine Casts /LPF Urine Mucus /LPF Urine Culture Indicated NO My Orders Orders - TUNDE BARROW DO Ed Iv/Invasive Line Start (08/14/20 22:22) Ekg Tracing (08/14/20 22:22) Monitor-Rhythm Ecg Trace Only (08/14/20 22:22) Ct Head/Face/Cervical Wo (08/14/20 22:22) Ct Thoracic/Lumbar Spine Wo (08/14/20 22:22) Chest 1 View, Ap/Pa Only (08/14/20 22:22) Amylase (08/14/20 22:22) BNP (08/14/20 22:22) Cbc With Automated Diff (08/14/20 22:22) Comprehensive Metabolic Panel (08/14/20 22:22) Creatine Kinase (08/14/20 22:22) Creatine Kinase Mb (08/14/20 22:22) Lipase (08/14/20 22:22) Magnesium (08/14/20 22:22) Protime With Inr (08/14/20 22:22) Partial Thromboplastin Time (08/14/20 22:22) Thyroid Analyzer (08/14/20 22:22) Ua Culture If Indicated (08/14/20 22:22) Myoglobin Serum (08/14/20 22:22) Troponin I (08/14/20 22:22) Ed Iv/Invasive Line Start (08/14/20 22:22) Ns Iv 1000 Ml (Sodium Chloride 0.9%) (08/14/20 22:30) Catheter(Urinary) Insert & Ass 03,15 (08/14/20 22:41) Dipht,Pertuss(Acell),Tet Adult (Boostrix (08/14/20 22:45) Manual Differential (08/14/20 22:33) Medications Given in ED Current Medications Medications Dose Ordered Sig/Jose Enrique Route Start Time Stop Time Status Last Admin Dose Admin Diphtheria/ Tetanus/Acell Pertussis 0.5 ml ONCE ONCE IM 08/14/20 22:45 08/14/20 22:47 DC 08/14/20 23:43 0.5 ML Vital Signs/I&O 08/14/20 22:41 Temp 37.1 Pulse 98 Resp 18 B/P (MAP) 168/91 (116) O2 Delivery Room Air 08/15/20 00:00 Intake Total 1000 ml Balance 1000 ml Capillary Refill : Progress Note : Progress Note STATES SHE FEELS FINE WHILE LAYING DOWN ATTEMPTED TO HAVE PT STAND WITH ASSIST--BECAME VERY WEAK ON STANDING AND STATES SHE "DOESN'T FEEL RIGHT" AND LEGS FEEL LIKE THEY ARE GOING TO GIVE OUT, STATES SHE "DOESN'T FEEL LIKE SHE IS IN HER BODY" HR UP TO 120'S, BP 140'S/80'S, O2 SAT IN UPPER 90'S DENIES DIZZINESS NO CHEST PAIN NO SHORTNESS OF BREATH NO NAUSEA/VOMITING NO PAIN ANYWHERE NO HEADACHE AT THIS TIME, STATES HEADACHE COMES AND GOES. PT IS UNABLE TO STAND ON HER OWN, OR EVEN TAKE A STEP ECG Initial ECG Impression Date: Aug 14, 2020 Initial ECG Impression Time: 22:32 Initial ECG Rate: 95 Initial ECG Rhythm: Normal Sinus Initial ECG Impression: Nonspecific Changes (RBBB) Diagnostic Imaging Comments CXR--MILD CHF, PENDING RADIOLOGIST REVIEW CT HEAD/MAXILLOFACIALS/CERVICAL SPINE--NO ACUTE PROCESS, PER [facility] VIA FAX AT [address]40 CT THORACIC/LUMBAR SPINE--NO ACUTE PROCESS, OLD L3 COMPRESSION FRACTURE, CHRONIC DEGENERATIVE CHANGES, PER [facility] VIA FAX AT 0040 Reviewed: Reviewed by Me Departure Communication (Admissions) 0105--SPOKE WITH DR. BOURGEOIS, HOSPITALIST, ACCEPTS PT FOR ADMIT 0110--SPOKE WITH DR. CASTANO, TRAUMA SURGEON, FOR CONSULT Impression Primary Impression: S/P FALL FROM STANDING Additional Impressions: ANTICOAGULATION THERAPY RECENT HEART VALVE REPLACEMENT IDDM (insulin dependent diabetes mellitus) Minor head injury without loss of consciousness Chronic CHF NECK AND BACK STRAIN Periorbital hematoma of left eye ABRASION LEFT MANDAEN Pzvjsnhrkm-cvqpqirjn-gmcdhvp (DPT) vaccination administered at current visit CONCUSSION Generalized weakness Disposition: ADMITTED INPATIENT Condition: Stable Admissions Decision to Admit Reason: Admit from ER (Trauma) Decision to Admit/Date: Aug 15, 2020 Time/Decision to Admit Time: 01:05 Departure-Patient Inst. Referrals: BLAKE ESCOBAR DO (PCP/Family) Primary Care Physician TUNDE BARROW DO Aug 14, 2020 22:27
[2020-08-14] MEDS ORDERED: NS IV 1000 ML 1,000 ML IV SCH (22:30)
[2020-08-14 22:44] LABS: BASOPHILS % (AUTO) 0 % (0-10); EOSINOPHILS % (AUTO) 0 % (0-10); HEMATOCRIT 38 % (35-52); HEMOGLOBIN 12.1 g/dL (11.5-16.0); LYMPHOCYTES # (AUTO) 0.5 10^3/uL (1.0-4.0); LYMPHOCYTES % (AUTO) 3 % (12-44); MEAN CORPUSCULAR HEMOGLOBIN 29 pg (25-34); MEAN CORPUSCULAR HGB CONC 32 g/dL (32-36); MEAN CORPUSCULAR VOLUME 89 fL (80-99); MEAN PLATELET VOLUME 10.2 fL (9.0-12.2); MONOCYTES # (AUTO) 0.4 10^3/uL (0.0-1.0); MONOCYTES % (AUTO) 2 % (0-12); NEUTROPHILS # (AUTO) 15.3 10^3/uL (1.8-7.8); NEUTROPHILS % (AUTO) 94 % (42-75); PLATELET COUNT 318 10^3/uL (130-400); WHITE BLOOD COUNT 16.3 10^3/uL (4.3-11.0)
[2020-08-14] MEDS ORDERED: TETANUS,DIPTH,PERTUSS P/F (BOOSTRIX) 0.5 ML VIAL IM ONE (22:45)
[2020-08-14 22:55] LABS: ALBUMIN 4.6 GM/DL (3.2-4.5); CHLORIDE 99 MMOL/L (98-107); POTASSIUM 4.4 MMOL/L (3.6-5.0); SODIUM 137 MMOL/L (135-145)
[2020-08-14 22:56] LABS: AMYLASE 35 U/L (25-125); CALCIUM 9.5 MG/DL (8.5-10.1)
[2020-08-14 22:57] LABS: GLUCOSE 259 MG/DL (70-105); TOTAL PROTEIN 7.3 GM/DL (6.4-8.2)
[2020-08-14 22:58] LABS: CARBON DIOXIDE 24 MMOL/L (21-32)
[2020-08-14 22:59] LABS: BILIRUBIN,TOTAL 0.4 MG/DL (0.1-1.0)
[2020-08-14 22:59] LABS: BILIRUBIN,URINE NEGATIVE (NEGATIVE); CLARITY,URINE CLEAR; COLOR,URINE YELLOW; GLUCOSE, URINE (UA) 3+ (NEGATIVE); KETONES,URINE NEGATIVE (NEGATIVE); LEUKOCYTE ESTERASE ,URINE NEGATIVE (NEGATIVE); NITRITE,URINE NEGATIVE (NEGATIVE); PROTEIN,URINE NEGATIVE (NEGATIVE)
[2020-08-14 23:01] LABS: ALKALINE PHOSPHATASE 64 U/L (40-136); GFR ESTIMATED 48
[2020-08-14 23:02] LABS: BUN/CREATININE RATIO 22
[2020-08-14 23:04] LABS: ALANINE AMINOTRANSFERASE 7 U/L (0-55); MAGNESIUM 1.9 MG/DL (1.6-2.4)
[2020-08-14 23:05] LABS: CREATINE KINASE 52 U/L (29-168); LIPASE 23 U/L (8-78)
[2020-08-14 23:11] LABS: BAND NEUTROPHILS 6 %; LYMPHOCYTES % (MANUAL) 5 %; NEUTROPHILS % (MANUAL) 89 %; TOXIC GRANULATION/VACUOLAZATIO 1+
[2020-08-14 23:12] LABS: CREATINE KINASE MB 2.2 NG/ML (<6.6)
[2020-08-14 23:24] LABS: TSH (THYROID ANALYZER) 1.41 UIU/ML (0.35-4.94)
[2020-08-14 23:25] LABS: INR 0.9 (0.8-1.4); PROTHROMBIN TIME PATIENT 12.5 SEC (12.2-14.7)
[2020-08-15] MEDS ORDERED: ACETAMINOPHEN 500 MG TAB (TYLENOL) PO ONE (01:30)
[2020-08-15] MEDS ORDERED: NS IV 1000 ML 1,000 ML IV SCH (01:45)
[2020-08-15 01:59] VITALS: BP 136/70
[2020-08-15] MEDS ORDERED: 1/2 NS W/KCL 20 MEQ/L 1,000 ML IV ONE (02:32)
[2020-08-15] MEDS ORDERED: ONDANSETRON 4 MG/2 ML (SDV) Z0FRAN IVP PRN (02:45)
[2020-08-15] MEDS ORDERED: ACETAMINOPHEN 500 MG TAB (TYLENOL) PO PRN (02:45)
[2020-08-15] MEDS: 1/2 NS W/KCL 20 MEQ/L 1,000 ML IV SCH ×2 (04:21→12:29)
[2020-08-15] MEDS: inSUlin ASPART (NovoLOG) 1 UNIT/0.01 ML (CHARGE PER UNIT) SC SCH ×4 (06:30→21:11)
--- NOTE | 2020-08-15 08:01 | Diagnostic Imaging Report ---
PROCEDURE: CT thoracic and lumbar spine without contrast. TECHNIQUE: Multiple contiguous axial images were obtained through the thoracic and lumbar spine without the use of intravenous contrast. Sagittal and coronal reformations were then performed.All CT scans use one or more of the following dose optimizing techniques: automated exposure control, MA and/or KvP adjustment based on a patient size and exam type, or iterative reconstruction. Date: August 14, 2020. Indication: 79-year-old female, dizziness. Nausea and vomiting. Fall. Mid and lower back pain. Comparison: MR thoracic spine June 30, 2018. MRI lumbar spine March 02, 2018. Findings: There are multilevel mild disc degenerative changes of the thoracic spine. CT is limited for assessment of disc pathology as well as additional nonbony causes of pathology in the spinal canal. There are degenerative changes of the imaged lower cervical spine. There is no identified acute fracture of the thoracic spine. There is a superior endplate concavity of L3 with approximately 15-20% height loss. There is no visible fracture line. This is unchanged since March 02, 2018. The lumbar disc heights are relatively well preserved. The alignment of the lumbar spine is unremarkable. There are advanced bilateral facet degenerative changes at L4-L5 and L5-S1. There is no identified acute fracture of the lumbar spine. There are bilateral sacroiliac degenerative changes. There are atherosclerotic calcifications. There are areas of left renal cortical scarring. There is a small hiatal hernia. Impression: 1. No identified acute fracture of the thoracic or lumbar spine. 2. Multilevel degenerative changes of the spine. Dictated by: Dictated on workstation # [id number]
--- NOTE | 2020-08-15 08:02 | Diagnostic Imaging Report ---
EXAMINATION: Chest radiograph, portable AP view. DATE: 08/14/2020 11:42 PM INDICATION: 79-year-old female, dizziness, nausea and vomiting. COMPARISON: July 14, 2020. FINDINGS: Heart size and mediastinal contours are grossly unchanged given differences in technique and lung volumes. There is no identified pneumothorax. There is no large pleural effusion. There is no identified focal airspace consolidation. IMPRESSION: No identified acute cardiopulmonary abnormality. Dictated by: Dictated on workstation # [id number]
--- NOTE | 2020-08-15 08:29 | Diagnostic Imaging Report ---
PROCEDURE: CT head, face, and cervical spine without contrast. TECHNIQUE: Multiple contiguous axial images were obtained through the head, neck, and facial bones without the use of intravenous contrast. Sagittal and coronal reformations through the cervical spine and facial bones were also performed. Auto Exposure Controls were utilized during the CT exam to meet ALARA standards for radiation dose reduction. INDICATION: Dizzy, nausea, vomiting, falls, trauma. CORRELATION STUDY: CT head 03/23/2015 FINDINGS: CT HEAD: Generalized atrophic changes with prominence of ventricles and sulci. Scattered areas of decreased attenuation likely reflect small vessel ischemic disease. Prior lacunar infarct of the right basal ganglia versus prominent CSF space. No intracranial hemorrhage. No midline shift or mass effect. No hyperdense intracranial vascular sign. There is mild to moderate intracranial vascular calcification. Calcification of the basal ganglia. Bony calvarium is intact. CT MAXILLOFACIAL: Moderate metallic artifact from dental spiritism. There is no evidence for an acute displaced maxillofacial fracture deformity. No paranasal sinus fluid collection. Orbital castillo including floors intact. Zygomatic arch is maintained. Mandible intact. There is some degenerative change of the temporomandibular joints. CT CERVICAL SPINE: Cervical spine alignment overall relatively anatomic. Mild trace degenerative retrolisthesis C4 on C5. Vertebral body heights are fairly well-maintained. There is no acute fracture. Hypertrophic facet arthropathy is present. Various degrees of fusion across the facet joints. Odontoid intact. Significant multiple areas of disc space narrowing. Most pronounced at C4-C5, C5-C6 levels. Paraspinous soft tissues unremarkable. Lung apices are clear. IMPRESSION: CT HEAD: 1. Negative for acute traumatic intracranial abnormality. CT MAXILLOFACIAL: 1. Negative for acute displaced maxillofacial fracture. CT CERVICAL SPINE: 1. Negative for acute fracture or traumatic subluxation. Rather pronounced multilevel cervical spondylosis. Initial report was provided by [facility]. Dictated by: Dictated on workstation # [id number]
[2020-08-15 08:33] LABS: BASOPHILS # (AUTO) 0.1 10^3/uL (0.0-0.1); BASOPHILS % (AUTO) 0 % (0-10); EOSINOPHILS # (AUTO) 0.2 10^3/uL (0.0-0.3); EOSINOPHILS % (AUTO) 1 % (0-10); HEMATOCRIT 31 % (35-52); LYMPHOCYTES # (AUTO) 0.4 10^3/uL (1.0-4.0); LYMPHOCYTES % (AUTO) 2 % (12-44); MEAN CORPUSCULAR HEMOGLOBIN 29 pg (25-34); MEAN CORPUSCULAR HGB CONC 33 g/dL (32-36); MEAN CORPUSCULAR VOLUME 88 fL (80-99); MEAN PLATELET VOLUME 9.9 fL (9.0-12.2); MONOCYTES # (AUTO) 0.3 10^3/uL (0.0-1.0); MONOCYTES % (AUTO) 2 % (0-12); NEUTROPHILS # (AUTO) 17.4 10^3/uL (1.8-7.8); NEUTROPHILS % (AUTO) 94 % (42-75); PLATELET COUNT 256 10^3/uL (130-400); WHITE BLOOD COUNT 18.5 10^3/uL (4.3-11.0)
[2020-08-15 08:44] LABS: ALBUMIN 3.7 GM/DL (3.2-4.5)
[2020-08-15 08:45] LABS: CHLORIDE 105 MMOL/L (98-107); POTASSIUM 4.1 MMOL/L (3.6-5.0); SODIUM 138 MMOL/L (135-145)
[2020-08-15 08:46] LABS: CALCIUM 8.4 MG/DL (8.5-10.1)
[2020-08-15 08:47] LABS: GLUCOSE 134 MG/DL (70-105); TOTAL PROTEIN 5.6 GM/DL (6.4-8.2)
[2020-08-15 08:48] LABS: CARBON DIOXIDE 21 MMOL/L (21-32)
[2020-08-15 08:49] LABS: BILIRUBIN,TOTAL 0.5 MG/DL (0.1-1.0)
[2020-08-15 08:50] LABS: ALKALINE PHOSPHATASE 48 U/L (40-136)
[2020-08-15 08:51] LABS: CREATININE SERUM 0.83 MG/DL (0.60-1.30); GFR ESTIMATED > 60
[2020-08-15 08:52] LABS: BUN/CREATININE RATIO 18
[2020-08-15 08:53] LABS: ALANINE AMINOTRANSFERASE 7 U/L (0-55)
--- NOTE | 2020-08-15 09:04 | History & Physical-Hospitalist ---
History of Present Illness HPI/Chief Complaint PT is a 79yoCF witha PMH of recent TAVR, HTN, IDDMII, CHF who presented to the ER due to falls and weakness. She had a TAVR done in June of this year and since that time has been having falls. She has fallen at least four times. She states she gets lightheaded but has never passes out. Yesterday she fell getting out of her car and walking in to [employer]. She has had similar when she was walking into the bank her daughter works at. Despite this both happening when she was getting up and walking she denies any association with position changes. She also had nause and vomiting yesterday prompting her to seek evaluation in the ER. She was seen by Kristen Ramos NP at Dr Ramos's office and was diagnosed with a UTI and started on macrobid. She states this is her 4th UTI this year. She also called Dr Owens's office yesterday about this issues and her amlodipine was stopped. Source: patient Date Seen 08/15/20 Time Seen by a Provider: 09:01 Attending Physician Cornelio Mirza MD PCP Janse Ramos DO Referring Physician Date of Admission Aug 15, 2020 at 01:05 Home Medications & Allergies Home Medications Reviewed patient Home Medication Reconciliation performed by pharmacy medication reconciliations civil design technician and/or nursing. Patients Allergies have been reviewed. Allergies Allergies Coded Allergies canagliflozin (Verified Allergy, Severe, LIGHT HEADED/HEADACHES/UTI/FELT LIKE SHE WOULD PASS OUT, 02/19/19) liraglutide (Verified Allergy, Severe, RAPID HEART RATE/HEADACHE/DIZZINESS, 02/19/19) Geuvkxh-Rga-Ahb Reductase Inhibitor (Verified Adverse Reaction, Severe, MUSCLE PAIN, 02/19/19) Past Crkqbgu-Bkjfel-Ejnqfz Hx Patient Social History Marrital Status: Tobacco Use?: No Smoking Status: Never a Smoker Use of E-Cig and/or Vaping dev: No Substance use?: No Alcohol Use?: No Pt feels they are or have been: No Immunizations Up To Date Date of Influenza Vaccine: Dec 14, 2019 First/Initial COVID19 Vaccinat: SPRING 2020 Second COVID19 Vaccination Ochoa: SPRING 2020 Tetanus Booster (TDap): Unknown PED Vaccines UTD: No Date of Pneumonia Vaccine: Feb 14, 2017 Seasonal Allergies Seasonal Allergies: Yes Current Status status: No status: No Communicates: Verbally Primary Language: Welsh Preferred Spoken Language: Welsh Is interpretation needed?: No Sensory deficits: Vision impairment Implanted or Applied Medical D: Stents Past Medical History Surgeries: Bladder Surgery, Cardiac, Coronary Stent, Gallbladder, Hysterectomy, Joint Replacement, Oophorectomy, Orthopedic, Tonsillectomy, Valve Replacement Currently Using CPAP: No Currently Using BIPAP: No Atrial Fibrillation, Cardiomyopathy, Coronary Artery Disease, High Cholesterol, Hypertension, Peripheral Vascular, Valvular Heart Disease Neuropathy HEADWAITRESS History: Hysterectomy, Menopausal Renal Failure, UTI-Chronic Gastroesophageal Reflux, Hiatal Hernia, Gall Bladder Disease Osteoporosis, Arthritis Diabetes, Insulin dep, Hypothyroidsim Loss of Vision: Denies Hearing Impairment: Denies Anxiety Blood Disorders: No Family Medical History Reviewed Nursing Family Hx Cardiovascular disease Congenital heart disease 19 FATHER 19 MOTHER G8 BROTHER G8 BROTHER Diabetes mellitus 19 FATHER G8 BROTHER G8 BROTHER Hypertension Myocardial infarction 19 FATHER Heart Disease, Hypertension ADDITIONAL PAST SURGICAL/PROCEDURAL HISTORY: -CARDIAC CATH 07/25/[address] OWENS: PATENT MID VESSEL STENT TO LAD ( [address] BEATTY AT [facility]) AND CHRONIC TOTAL OCCLUSION OF FIRST DIAGONAL. REST OF CORONARY ARTERIES HAVE MODERATE DIFFUSE PLAQUE. EF 60%. MODERATE AORTIC STENOSIS Review of Systems Constitutional: see HPI; No chills; dizziness; No fever; weakness EENTM: blurred vision Respiratory: No cough, No short of breath Cardiovascular: No chest pain, No edema; Hx of Intervention; No palpitations Gastrointestinal: No abdominal pain; nausea, vomiting Genitourinary: No dysuria, No frequency Musculoskeletal: no symptoms reported Skin: no symptoms reported Psychiatric/Neurological: No Symptoms Reported Physical Exam Physical Exam Vital Signs Vital Signs - First Documented 08/14/20 08/15/20 22:41 01:59 Temp 37.1 Pulse 98 Resp 18 B/P (MAP) 168/91 (116) Pulse Ox 98 O2 Delivery Room Air Capillary Refill : Less Than 3 Seconds Height, Weight, BMI Height: 5'3.00" Weight: 144lbs. 0.0oz. 65.052193ay; 28.90 BMI Method:Stated General Appearance: No Apparent Distress, WD/WN HEENT: PERRL/EOMI, Moist Mucous Membranes Neck: Normal Inspection, Supple Respiratory: Lungs Clear, No Accessory Muscle Use, No Respiratory Distress Cardiovascular: Regular Rate, Rhythm, No Murmur Gastrointestinal: Normal Bowel Sounds, Non Tender, Soft Extremity: Normal Capillary Refill, No Calf Tenderness, No Pedal Edema Neurologic/Psychiatric: Alert, Oriented x3, Normal Mood/Affect Results Results/Procedures Labs Laboratory Tests 08/14/20 22:33 08/15/20 08:22 Patient resulted labs reviewed. Imaging: Reviewed Imaging Report [facility] [place], [place] NAME: CAMERON WHITAKER [facility] REC#: [id number] PT STATUS: ADM Xiomara : 1940 PHYSICIAN: TUNDE BARROW DO ADMIT DATE: 08/15/20/[facility] Signed Date of Exam:08/14/20 CHEST 1 VIEW, AP/PA ONLY EXAMINATION: Chest radiograph, portable AP view. DATE: 08/14/2020 11:42 PM INDICATION: 79-year-old female, dizziness, nausea and vomiting. COMPARISON: July 14, 2020. FINDINGS: Heart size and mediastinal contours are grossly unchanged given differences in technique and lung volumes. There is no identified pneumothorax. There is no large pleural effusion. There is no identified focal airspace consolidation. IMPRESSION: No identified acute cardiopulmonary abnormality. Dictated by: Dictated on workstation # [id number] Dict: 08/15/20 0753 Trans: 08/15/20 0851 [facility] [place] [phone] Interpreted by: BEE PRIDE MD Electronically signed by: BEE PRIDE MD 08/15/20 0851 [facility] [place], [place] NAME: CAMERON WHITAKER [facility] REC#: [id number] PT STATUS: ADM Xiomara : 1940 PHYSICIAN: TUNDE BARROW DO ADMIT DATE: 08/15/20/[facility] Draft Date of Exam:08/14/20 CT HEAD/FACE/CERVICAL WO PROCEDURE: CT head, face, and cervical spine without contrast. TECHNIQUE: Multiple contiguous axial images were obtained through the head, neck, and facial bones without the use of intravenous contrast. Sagittal and coronal reformations through the cervical spine and facial bones were also performed. Auto Exposure Controls were utilized during the CT exam to meet ALARA standards for radiation dose reduction. INDICATION: Dizzy, nausea, vomiting, falls, trauma. CORRELATION STUDY: CT head 03/23/2015 FINDINGS: CT HEAD: Generalized atrophic changes with prominence of ventricles and sulci. Scattered areas of decreased attenuation likely reflect small vessel ischemic disease. Prior lacunar infarct of the right basal ganglia versus prominent CSF space. No intracranial hemorrhage. No midline shift or mass effect. No hyperdense intracranial vascular sign. There is mild to moderate intracranial vascular calcification. Calcification of the basal ganglia. Bony calvarium is intact. CT MAXILLOFACIAL: Moderate metallic artifact from dental bahai. There is no evidence for an acute displaced maxillofacial fracture deformity. No paranasal sinus fluid collection. Orbital castillo including floors intact. Zygomatic arch is maintained. Mandible intact. There is some degenerative change of the temporomandibular joints. CT CERVICAL SPINE: Cervical spine alignment overall relatively anatomic. Mild trace degenerative retrolisthesis C4 on C5. Vertebral body heights are fairly well-maintained. There is no acute fracture. Hypertrophic facet arthropathy is present. Various degrees of fusion across the facet joints. Odontoid intact. Significant multiple areas of disc space narrowing. Most pronounced at C4-C5, C5-C6 levels. Paraspinous soft tissues unremarkable. Lung apices are clear. IMPRESSION: CT HEAD: 1. Negative for acute traumatic intracranial abnormality. CT MAXILLOFACIAL: 1. Negative for acute displaced maxillofacial fracture. CT CERVICAL SPINE: 1. Negative for acute fracture or traumatic subluxation. Rather pronounced multilevel cervical spondylosis. Initial report was provided by [employer]. Dictated on workstation # [id number] Dict: 08/15/20 0755 Trans: 08/15/20 0829 [place] [id number] Interpreted by: CARLOS KIMBROUGH DO Electronically signed by: [facility] [place] NAME: CAMERON WHITAKER [facility] REC#: [id number] PT STATUS: ADM Xiomara : 1940 PHYSICIAN: TUNDE BRAROW DO ADMIT DATE: 08/15/20/[facility] Signed Date of Exam:08/14/20 CT THORACIC/LUMBAR SPINE WO PROCEDURE: CT thoracic and lumbar spine without contrast. TECHNIQUE: Multiple contiguous axial images were obtained through the thoracic and lumbar spine without the use of intravenous contrast. Sagittal and coronal reformations were then performed.All CT scans use one or more of the following dose optimizing techniques: automated exposure control, MA and/or KvP adjustment based on a patient size and exam type, or iterative reconstruction. Date: August 14, 2020. Indication: 79-year-old female, dizziness. Nausea and vomiting. Fall. Mid and lower back pain. Comparison: MR thoracic spine June 30, 2018. MRI lumbar spine March 02, 2018. Findings: There are multilevel mild disc degenerative changes of the thoracic spine. CT is limited for assessment of disc pathology as well as additional nonbony causes of pathology in the spinal canal. There are degenerative changes of the imaged lower cervical spine. There is no identified acute fracture of the thoracic spine. There is a superior endplate concavity of L3 with approximately 15-20% height loss. There is no visible fracture line. This is unchanged since March 02, 2018. The lumbar disc heights are relatively well preserved. The alignment of the lumbar spine is unremarkable. There are advanced bilateral facet degenerative changes at L4-L5 and L5-S1. There is no identified acute fracture of the lumbar spine. There are bilateral sacroiliac degenerative changes. There are atherosclerotic calcifications. There are areas of left renal cortical scarring. There is a small hiatal hernia. Impression: 1. No identified acute fracture of the thoracic or lumbar spine. 2. Multilevel degenerative changes of the spine. Dictated by: Dictated on workstation # [id number] Dict: 08/15/20 0755 Trans: 08/15/20 0851 [facility] [place] [phone] Interpreted by: BEE PRIDE MD Electronically signed by: BEE PRIDE MD 08/15/20 0851 Assessment/Plan Admission Diagnosis Falls Admission Status: Observation Reason for Inpatient Admission: see below Assessment and Plan Falls Dizziness HTN sCHF s/p TAVR pt/ot orthostatics Cardiology consulted, appreciate recs Continue entresto, hold other antihypertensives Cardiology consulted, appreciate recs Consider IRF UTI Continue abx as started outpatient IDDMII Continue home insulin DVt ppx: Already on anticoagulation Diagnosis/Problems Diagnosis/Problems (1) Generalized weakness Status: Acute (2) IDDM (insulin dependent diabetes mellitus) Status: Acute (3) Mild concussion Status: Acute (4) Urinary tract infection Status: Acute (5) PAF (paroxysmal atrial fibrillation) FLO EVANS MD Aug 15, 2020 09:04
--- NOTE | 2020-08-15 09:08 | Consultation-Cardiology ---
HPI-Cardiology Cardiology Consultation: Date of Consultation 08/15/20 Date of Admission Attending Physician Cornelio Mirza MD Admitting Physician Janes Ramos DO Consulting Physician VINEET RIOS ADL-Xjryob-Hkhept Hx Patient Social History Smoking Status: Never a Smoker 2nd Hand Smoke Exposure: No Have you traveled recently?: No Alcohol Use?: No Pt feels they are or have been: No Immunizations Up To Date Tetanus Booster (TDap): Unknown Date of Pneumonia Vaccine: Feb 14, 2017 Date of Influenza Vaccine: Dec 14, 2019 Past Medical History PMH As described under Assessment. Family Medical History Family Medical History: Reports fam h/o early CAD Family History: Cardiovascular disease Congenital heart disease 19 FATHER 19 MOTHER G8 BROTHER G8 BROTHER Diabetes mellitus 19 FATHER G8 BROTHER G8 BROTHER Hypertension Myocardial infarction 19 FATHER Allergies and Home Medications Allergies Coded Allergies: canagliflozin (Verified Allergy, Severe, LIGHT HEADED/HEADACHES/UTI/FELT LIKE SHE WOULD PASS OUT, 02/19/19) liraglutide (Verified Allergy, Severe, RAPID HEART RATE/HEADACHE/DIZZINESS, 02/19/19) Uwstorf-Vbd-Tti Reductase Inhibitor (Verified Adverse Reaction, Severe, MUSCLE PAIN, 02/19/19) Home Medications Acetaminophen 500 Mg Tablet, 500-1,000 MG PO Q4H PRN for PAIN-MILD, (Reported) Last Action: Held Acetaminophen/Diphenhydramine 1 Each Tablet, 2 TAB PO HS, (Reported) Last Action: Held Albuterol Sulfate 18 Gm Hfa.aer.ad, 1-2 PUFF INH Q4H PRN for SHORTNESS OF BREATH, (Reported) Last Action: Held Allopurinol 100 Mg Tablet, 100 MG PO DAILY, (Reported) Last Action: Continued Apixaban 5 Mg Tablet, 5 MG PO BID, (Reported) Last Action: Reviewed Aspirin 81 Mg Tab.chew, 81 MG PO DAILY, (Reported) Last Action: Reviewed Baclofen 10 Mg Tablet, 10 MG PO BID PRN for MUSCLE SPASMS, (Reported) Last Action: Continued Cranberry Fruit 450 Mg Tablet, 450 MG PO DAILY, (Reported) Last Action: Held Escitalopram Oxalate 10 Mg Tablet, 10 MG PO DAILY, (Reported) Last Action: Converted Ezetimibe 10 Mg Tablet, 10 MG PO HS, (Reported) LAST FILLED 04-04-2020 #90/90 DAY SUPPLY Last Action: Continued Fluticasone Propionate 16 Gm [place].susp, 1 SPRAY NS BID PRN for CONGESTION, (Reported) Last Action: Continued Furosemide 40 Mg Tablet, 40 MG PO DAILY, (Reported) Last Action: Held Gabapentin 400 Mg Capsule, 400 MG PO BID, (Reported) Last Action: Continued Insulin Degludec 100 Unit/1 Ml Insuln.pen, 25 UNIT SQ DAILY, (Reported) Last Action: Converted Levothyroxine Sodium 50 Mcg Tablet, 50 MCG PO DAILY, (Reported) Last Action: Continued Metformin HCl 500 Mg Tablet, 750 MG PO BIDAC, (Reported) TAKES 1 & (500MG) TABS Last Action: Held Metformin HCl 500 Mg Tablet, 500 MG PO HS, (Reported) Last Action: Held Metoprolol Succinate 100 Mg Tab.er.24h, 100 MG PO BID, (Reported) Last Action: Held Nitrofurantoin Monohyd/M-Cryst 100 Mg Capsule, 100 MG PO BID, (Reported) FILLED 08-14-2020 #14/7 DAY SUPPLY Last Action: Continued [place]-3S/Dha/Epa/Fish Oil 1 Each Capsule.dr, 1 EACH PO DAILY, (Reported) Last Action: Held Pantoprazole Sodium 40 Mg Tablet.dr, 40 MG PO DAILY, (Reported) Last Action: Continued Sacubitril/Valsartan 1 Each Tablet, 1 TAB PO BID, (Reported) LAST FILLED 06-13-2020 #60/30 DAY SUPPLY Last Action: Held Physical Exam-Cardiology Physical Exam Vital Signs/I&O 08/15/20 08/15/20 08/16/20 08/16/20 22:00 23:00 00:00 01:00 Pulse 101 112 Resp 16 B/P (MAP) 138/74 (95) Pulse Ox 98 O2 Delivery Room Air Room Air Room Air 08/16/20 08/16/20 08/16/20 02:48 04:00 07:00 Temp 36.9 Pulse 118 111 Resp 18 B/P (MAP) 126/72 (90) Pulse Ox 96 O2 Delivery Room Air Room Air 08/16/20 00:00 Intake Total 235 ml Output Total 1450 ml Balance -1215 ml Capillary Refill : Less Than 3 Seconds Data Review Labs Laboratory Tests 08/15/20 10:35: Glucometer 143H 08/15/20 15:05: Glucometer 147H 08/15/20 20:38: Glucometer 184H 08/16/20 03:05: White Blood Count 15.4H, Red Blood Count 3.93, Hemoglobin 11.0L, Hematocrit 35, Mean Corpuscular Volume 88, Mean Corpuscular Hemoglobin 28, Mean Corpuscular Hemoglobin Concent 32, Red Cell Distribution Width 14.3, Platelet Count 263, Mean Platelet Volume 10.5, Sodium Level 138, Potassium Level 4.0, Chloride Level 103, Carbon Dioxide Level 17L, Anion Gap 18H, Blood Urea Nitrogen 12, Creatinine 0.82, Estimat Glomerular Filtration Rate > 60, BUN/Creatinine Ratio 15, Glucose Level 171H, Calcium Level 9.0 Radiology NAME: CAMERON WHITAKER [facility] REC#: [id number] PT STATUS: ADM Xiomara : 1940 PHYSICIAN: TUNDE BARROW DO ADMIT DATE: 08/15/20/[facility] Signed Date of Exam:08/14/20 CHEST 1 VIEW, AP/PA ONLY EXAMINATION: Chest radiograph, portable AP view. DATE: 08/14/2020 11:42 PM INDICATION: 79-year-old female, dizziness, nausea and vomiting. COMPARISON: July 14, 2020. FINDINGS: Heart size and mediastinal contours are grossly unchanged given differences in technique and lung volumes. There is no identified pneumothorax. There is no large pleural effusion. There is no identified focal airspace consolidation. IMPRESSION: No identified acute cardiopulmonary abnormality. Dictated by: Dictated on workstation # [id number] Dict: 08/15/20 0753 Trans: 08/15/20 0851 [facility] [phone] Interpreted by: BEE PRIDE MD Electronically signed by: BEE PRIDE MD 08/15/20 0851 NAME: CAMERON WHITAKER [facility] REC#: [id number] PT STATUS: ADM Xiomara : 1940 PHYSICIAN: TUNDE BARROW DO ADMIT DATE: 08/15/20/[facility] Draft Date of Exam:08/14/20 CT HEAD/FACE/CERVICAL WO PROCEDURE: CT head, face, and cervical spine without contrast. TECHNIQUE: Multiple contiguous axial images were obtained through the head, neck, and facial bones without the use of intravenous contrast. Sagittal and coronal reformations through the cervical spine and facial bones were also performed. Auto Exposure Controls were utilized during the CT exam to meet ALARA standards for radiation dose reduction. INDICATION: Dizzy, nausea, vomiting, falls, trauma. CORRELATION STUDY: CT head 03/23/2015 FINDINGS: CT HEAD: Generalized atrophic changes with prominence of ventricles and sulci. Scattered areas of decreased attenuation likely reflect small vessel ischemic disease. Prior lacunar infarct of the right basal ganglia versus prominent CSF space. No intracranial hemorrhage. No midline shift or mass effect. No hyperdense intracranial vascular sign. There is mild to moderate intracranial vascular calcification. Calcification of the basal ganglia. Bony calvarium is intact. CT MAXILLOFACIAL: Moderate metallic artifact from dental mormon. There is no evidence for an acute displaced maxillofacial fracture deformity. No paranasal sinus fluid collection. Orbital castillo including floors intact. Zygomatic arch is maintained. Mandible intact. There is some degenerative change of the temporomandibular joints. CT CERVICAL SPINE: Cervical spine alignment overall relatively anatomic. Mild trace degenerative retrolisthesis C4 on C5. Vertebral body heights are fairly well-maintained. There is no acute fracture. Hypertrophic facet arthropathy is present. Various degrees of fusion across the facet joints. Odontoid intact. Significant multiple areas of disc space narrowing. Most pronounced at C4-C5, C5-C6 levels. Paraspinous soft tissues unremarkable. Lung apices are clear. IMPRESSION: CT HEAD: 1. Negative for acute traumatic intracranial abnormality. CT MAXILLOFACIAL: 1. Negative for acute displaced maxillofacial fracture. CT CERVICAL SPINE: 1. Negative for acute fracture or traumatic subluxation. Rather pronounced multilevel cervical spondylosis. Initial report was provided by [employer]. Dictated on workstation # [id number] Dict: 08/15/20 0755 Trans: 08/15/20 0829 [place] [id number] Interpreted by: CARLOS KIMBROUGH DO Electronically signed by: A/P-Cardiology Assessment/Admission Diagnosis Severe treated with TAVR - Echo of 01/11/20 (Dr Chandra): LVEF 50-55%, mod MAC, mild to mod MR, critical (area 04 sq cm, quinonez grad 50 mmHg), PASP 40 mmHg - S/P TAVR on 06-27-[address] Weaver at [facility] Chest discomfort in July 2019, no recurrence, likely noncardiac (based on card cath of 07/25/19) Chronic diastolic and systolic CHF (ac episode on 02/20/19) - clinically compensated PAF, first documented on tele strips at [facility] in early 2016. Currently in NSR H/o ischemic cm. LVEF on 02/18/17 was 35% Echo of 01/11/20: LVEF 50-55%. CAD. S/p prox LAD stenting by Dr Obrien at [facility] on cath of 02/20/17: Promus 2.5x24. Last cath on 07/25/19 patent stent in the LAD and LPN [employer] DUTY of D1, mod disease in other cors, LVEF 60%, at least mod with ywvn-bf-kalp gradient of 40 mmHg MPI of 05/02/19: anteroapical infarction w/ mild ischemia; LVEF 49% Dizziness and vertigo, improved after reduction of anti-htn and Invokana treatment in early Apr 2015. MRI head on 05/10/15 (Dr Mariano) did not show lesions other than possibility of chronic microvascular disease DM II CKD stage 2-3, likely diabetic nephropathy Hyperlipidemia, but has intolerance to statins (severe joint pains) Hypothyroidism, treated with thyroid replacement therapy. TSH normal (2.19) on 07/07/17 Bilateral leg and foot discomfort which has been diagnosed as neuropathy. Normal bilat EDDY in June 2014 Mild bilat carotid arterial disease on carotid u/s of Oct 2018 Abn ECG. ECG of 05/13/17: NSR, old ASMI Chronic mid back pain treated with back injections by Dr Guevara at [facility] H/o surgeries: S/p hysterectomy w/o oophorectomy; S/p bilateral knee replacement; H/o R rotator cuff surgery, cholecystectomy, ovarian cyst removal VINEET DASILVA Aug 15, 2020 09:08
[2020-08-15] MEDS ORDERED: ASPIRIN 81 MG CHEW (CHILDREN'S ASA) PO ONE (09:15)
[2020-08-15] MEDS ORDERED: SACUBITRIL/VALSARTAN 24/26 MG (ENTRESTO) TABLET PO ONE (09:15)
[2020-08-15] MEDS ORDERED: ALBU18HF2 INH (10:46)
[2020-08-15] MEDS ORDERED: FURO40TA4 PO (10:46)
[2020-08-15] MEDS ORDERED: METF-397 PO ×2 (10:46)
[2020-08-15] MEDS ORDERED: GABA-490 PO (10:46)
[2020-08-15] MEDS ORDERED: BACL10TA PO (10:46)
[2020-08-15] MEDS ORDERED: NITR100C10 PO (10:46)
[2020-08-15] MEDS ORDERED: INSU100I32 SQ (11:50)
--- NOTE | 2020-08-15 11:54 | Physical Therapy Evaluation ---
PT Evaluation-General Medical Diagnosis Admission Date Aug 15, 2020 at 01:05 Medical Diagnosis: fall/concussion without LOC Onset Date: Aug 15, 2020 Therapy Diagnosis Therapy Diagnosis: generalized weakness/debility Height/Weight Height (Feet): 5 Height (Inches): 3.00 Weight (Pounds): 144 Weight (Ounces): 0.0 Precautions Precautions/Isolations: Standard Precautions Referral Physician: Yulissa Reason for Referral: Evaluation/Treatment Medical History Pertinent Medical History: Atrial Fib, CAD, DM, Heart Failure, HTN, Hypothroidism, PVD, Renal Insufficiency Additional Medical History valve replacement (recent) Current History ER secondary to fall secondary to dizziness Reviewed History: Yes Social History Home: Single Level Current Living Status: Alone Prior Prior Level of Function SCALE: Activities may be completed with or without assistive devices. 0-Yrinnwqqzj-oqkajji completes the activity by him/herself with no assistance from a helper. 5-Set-up or Clean-up Assistance-helper sets up or cleans up; patient completes activity. [place] assists only prior to or following the activity. 4-Supervision or Touching Assistance-helper provides verbal cues and/or touching/steadying and/or contact guard assistance as patient completes activity. Assistance may be provided throughout the activity or intermittently. 3-Partial/Moderate Assistance-helper does LESS THAN HALF the effort. [place] l ifts, holds or supports trunk or limbs, but provides less than half the effort. 2-Substantial/Maximal Assistance-helper does MORE THAN HALF the effort. [place] lifts or holds trunk or limbs and provides more than half the effort. 4-Hnsvljodg-gsinly does ALL the effort. Patient does none of the effort to complete the activity. Or, the assistance of 2 or more helpers is required for t he patient to complete the activity. If activity was not attempted, code reason: 7-Patient Refused. 9-Not Applicable-not attempted and the patient did not perform the activity before the current illness, exacerbation or injury. 10-Not Attempted due to Environmental Limitations-(lack of equipment, weather restraints, etc.). 88-Not Attempted due to Medical Conditions or Safety Concerns. Bed Mobility: 6 Transfers (B,C,W/C): 6 Gait: 6 Stairs: 6 Indoor Mobility (Ambulation): Independent Stairs: Independent Prior Devices Use: Walker PT Evaluation-Current Subjective Patient reluctantly agrees to PT. C/o weakness. Objective Patient Orientation: Normal For Age Attachments: Escobedo Catheter, IV ROM/Strength ROM Lower Extremities bilateral LE WFL Strength Lower Extremities 4-/5 grossly bilateral LE Integumentary/Posture Bowel Incontinence: No Bladder Incontinence: [place] Cath Posture WFL Neuromuscular (Tone, Coordination, Reflexes) grossly intact Sensory Vision: Wears Glasses Hearing: Functional Transfers Roll Left to Right (QC): 6 Sit to Lying (QC): 6 Lying to Sitting/Side of Bed(Q: 6 Sit to Stand (QC): 4 (CGA) Chair/Zsg-hc-Nwbvi Xfer(QC): 7 Gait Does the Patient Walk?: Yes Mode of Locomotion: Walk Anticipated Mode of Locomotion: Walk Walk 10 feet (QC): 4 (SBA) Walk 50 ft with 2 Turns(QC): 4 (SBA) Walk 150 ft (QC): 4 (SBA) Distance: 325' Gait Assistive Device: FWW Comments/Gait Description slow, steady, functional gait sequence with no deviation Wheelchair Training Does the Pt Use a Wheelchair?: No Balance Sitting Static: Normal Sitting Dynamic: Normal Standing Static: Normal Standing Dynamic: Normal Assessment/Needs 79 y.o. female, will be seen short term by skilled PT to address functional strength and mobility to improve current LOF to safely return to home at maximum LOF. Rehab Potential: Fair PT Long-Term Goals [place] Goals PT Long-Term Goals Time Frame: Aug 24, 2020 Roll Left & Right (QC): 6 Sit to Lying (QC): 6 Lying-Sitting on Side/Bed(QC): 6 Sit to Stand (QC): 6 Chair/Ekp-xw-Moeww Xfer(QC): 6 Toilet Transfer (QC): 6 Does the Patient Walk: Yes Walk 10 feet (QC): 6 Walk 50ft with 2 Turns (QC): 6 Walk 150 ft (QC): 6 PT Plan Problem List Problem List: Activity Tolerance, Functional Strength Treatment/Plan Treatment Plan: Continue Plan of Care Treatment Plan: Bed Mobility, Education, Functional Activity Monique, Functional Strength, Gait, Safety, Therapeutic Exercise, Transfers Treatment Duration: Aug 24, 2020 Frequency: 6 times per week Estimated Hrs Per Day: .25 hour per day Patient and/or Family Agrees t: Yes Time/GCodes Time In: 1050 Time Out: 1102 Total Billed Treatment Time: 12 Total Billed Treatment 1 visit EVModC 12 min NAVIN SANTILLAN PT Aug 15, 2020 11:54
[2020-08-15] MEDS ORDERED: FLUTICASONE NASAL SPRAY (FLONASE) 16 GM BTL NS PRN (13:15)
[2020-08-15] MEDS ORDERED: BACLOFEN 10 MG (LIORESAL) TAB PO PRN (13:15)
[2020-08-15] MEDS ORDERED: RT-ALBUTEROL SULF 2.5 MG/3 ML PRE-MIX VIAL INH PRN (13:15)
--- NOTE | 2020-08-15 14:16 | Occupational Therapy Eval ---
OT Evaluation-General/PLF Medical Diagnosis Admission Date Aug 15, 2020 at 01:05 Medical Diagnosis: fall/concussion without LOC Onset Date: Aug 15, 2020 Therapy Diagnosis Therapy Diagnosis: weakness, decreased ADL Status Height/Weight Height (Feet): 5 Height (Inches): 3.00 Weight (Pounds): 144 Weight (Ounces): 0.0 Precautions Precautions/Isolations: Standard Precautions Referral Physician: Yulissa Referral Reason: Evaluation/Treatment Medical History Pertinent Medical History: Atrial Fib, CAD, DM, Heart Failure, HTN, Hypothroidism, PVD, Renal Insufficiency Additional Medical History TAVR, HTN, CHF, afib, CAD, HTN, PVD, neuropathy, renal failure, GERD, Arthritis Current History ED due to falls and weakness, n/v Social History Home: Single Level Current Living Status: Alone ADL-Prior Level of Function SCALE: Activities may be completed with or without assistive devices. 1-Hjukpdrlfe-wlicrfp completes the activity by him/herself with no assistance from a helper. 5-Set-up or Clean-up Assistance-helper sets up or cleans up; patient completes activity. [place] assists only prior to or following the activity. 4-Supervision or Touching Assistance-helper provides verbal cues and/or touching/steadying and/or contact guard assistance as patient completes activity. Assistance may be provided throughout the activity or intermittently. 3-Partial/Moderate Assistance-helper does LESS THAN HALF the effort. [place] lifts, holds or supports trunk or limbs, but provides less than half the effort. 2-Substantial/Maximal Assistance-helper does MORE THAN HALF the effort. [place] lifts or holds trunk or limbs and provides more than half the effort. 1-Opklleriv-ixjwqh does ALL the effort. Patient does none of the effort to complete the activity. Or, the assistance of 2 or more helpers is required for the patient to complete the activity. If activity was not attempted, code reason: 7-Patient Refused. 9-Not Applicable-not attempted and the patient did not perform the activity before the current illness, exacerbation or injury. 10-Not Attempted due to Environmental Limitations-(lack of equipment, weather restraints, etc.). 88-Not Attempted due to Medical Conditions or Safety Concerns. ADL PLOF Comments Pt reports IND with ADLs at home, using walker for functional mobility. She has a walk in shower with a shower chair. Self Care: Independent Functional Cognition: Independent DME/Equipment Comments walker OT Current Status Subjective Pt laying in bed, agreeable to OT Tx. During tx, pt mentioned things multiple times, did not recall already telling this therapist same thing. Mental Status/Objective Patient Orientation: Person, Place, Situation Attachments: [place]obedo Catheter Current Glasses/Contacts: Yes Hand Dominance: Right Upper Extremity ROM WFL, BUE shoulder flexion to approx 140 degrees Upper Extremity Coordination WFL Upper Extremity Sensation WFL. pt denies tingling/numbness BUEs Upper Extremity Strength grossly 3/5 ADL-Treatment Eating (QC): 6 (Per pt report, able to open containers and eat lunch IND.) Oral Hygiene (QC): 7 Toileting Hygiene (QC): 7 Other Treatments Pt laying in bed, OT educated pt on purpose and benefit of OT. Pt provided information about PLOF and home set up, and participated in UE screen. Pt declined OOB activity stating she is too tired, declines ADLs. Pt agreeable to UE exercise. In order to increase BUE strength and activity tolerance, pt completed x5 reps BUE shoulder flexion, x5 reps elbow extension (front punch), and x10 reps elbow flexion. Pt took rest breaks between exercises. OT instructed pt to perform 3 times a day, increasing reps as tolerated, she verbalized understanding. Post tx, pt laying in bed, call light in reach and all needs met. Education OT Patient Education: Correct positioning, Energy conservation, Exercise p rogram, Modified ADL techniques, Progress toward Goal/Update tx plan, Purpose of tx/functional activities, Rehab process Teaching Recipient: Patient Teaching Methods: Discussion Response to Teaching: Verbalize Understanding OT Half-Way Goals Half-Way Goals Time Frame: Aug 23, 2020 Eating (QC): 6 Oral Hygiene (QC): 6 Toileting Hygiene (QC): 6 Shower/Bathe Self (QC): 6 Upper Body Dressing (QC): 6 Lower Body Dressing (QC): 6 On/Off Footwear (QC): 6 Additional Goals: 1-Demonstrate ADL Tasks, 2-Verbalize Understanding, 3- ImproveStrength/Monique 1=Demonstrate adherence to instructed precautions during ADL tasks. 2=Patient will verbalize/demonstrate understanding of assistive devices/modifications for ADL. 3=Patient will improve strength/tolerance for activity to enable patient to perform ADL's. OT Education/Plan Problem List/Assessment Assessment: Decreased Activ Tolerance, Decreased UE Strength, Impaired I ADL's, Impaired Self-Care Skills Pt would benefit from skilled OT services in order to increase safety and independence with ADLs, and increase BUE Strength and activity tolerance in order to maximize LOF for safe return home. Discharge Recommendations Plan/Recommendations: Continue POC Treatment Plan/Plan of Care Patient would benefit from OT for education, treatment and training to promote independence in ADL's, mobility, safety and/or upper extremity function for ADL's. Plan of Care: ADL Retraining, Functional Mobility, UE Funct Exercise/Act Treatment Duration: Aug 23, 2020 Frequency: 5 times per week Estimated Hrs Per Day: .25 hour per day Rehab Potential: Fair Time/GCodes Start Time: 13:30 Stop Time: 13:46 Total Time Billed (hr/min): 16 Billed Treatment Time 1, LIVIER WAKEFIELD OT Aug 15, 2020 14:16
--- NOTE | 2020-08-15 17:16 | Consultation-Cardiology ---
HPI-Cardiology Cardiology Consultation: Date of Consultation 08/15/20 Time Seen by a Provider: 09:10 Date of Admission Attending Physician Cornelio Mirza MD Admitting Physician Janes Ramos DO Consulting Physician DEMARIO LOPEZ MD, MA, FACP, FACC, FSCAI, CCDS HPI: Chief Complaint: CC: Blurriness/fogginess of vision, poor balance, sometimes near-syncope with posture changes HPI 79 yo woman admitted to Dr Duenas with gen malaise and weakness and fogginess of vision and occasional near-syncope with posture changes. States was diagnosed with UTI by pcp yesterday. Denies cp or palp or ethel syncope or shortness of breath or swelling. Has significant and frequent nausea and vomiting lately. Denies diarrhea. Denies fever or chills Review of Systems-Cardiology Review of Systems Constitutional: As described under HPI Eyes: As described under HPI Ears/Nose/Throat: No ear discharge, No nasal drainage, No recent hearing loss Respiratory: As described under HPI Cardiovascular: As described under HPI Gastrointestinal: As described under HPI Genitourinary: No dysuria, No hematuria, No urine frequency changes Musculoskeletal: No back pain, No joint pain Skin: No rash, No ulcerations Psychiatric/Neurological: As described under HPI; No seizure, No focal weakness, No syncope Hematologic: No bleeding abnormalities FSE-Bvadql-Fixnkh Hx Patient Social History Marrital Status: Smoking Status: Never a Smoker 2nd Hand Smoke Exposure: No Have you traveled recently?: No Alcohol Use?: No Pt feels they are or have been: No Immunizations Up To Date Tetanus Booster (TDap): Unknown Date of Pneumonia Vaccine: Feb 14, 2017 Date of Influenza Vaccine: Dec 14, 2019 Past Medical History PMH As described under Assessment. Family Medical History Family Medical History: Reports fam h/o early CAD Family History: Cardiovascular disease Congenital heart disease 19 FATHER 19 MOTHER G8 BROTHER G8 BROTHER Diabetes mellitus 19 FATHER G8 BROTHER G8 BROTHER Hypertension Myocardial infarction 19 FATHER Allergies and Home Medications Allergies Coded Allergies: canagliflozin (Verified Allergy, Severe, LIGHT HEADED/HEADACHES/UTI/FELT LIKE SHE WOULD PASS OUT, 02/19/19) liraglutide (Verified Allergy, Severe, RAPID HEART RATE/HEADACHE/DIZZINESS, 02/19/19) Rfdgcja-Gkz-Uwh Reductase Inhibitor (Verified Adverse Reaction, Severe, MUSCLE PAIN, 02/19/19) Home Medications Acetaminophen 500 Mg Tablet, 500-1,000 MG PO Q4H PRN for PAIN-MILD, (Reported) Last Action: Held Acetaminophen/Diphenhydramine 1 Each Tablet, 2 TAB PO HS, (Reported) Last Action: Held Albuterol Sulfate 18 Gm Hfa.aer.ad, 1-2 PUFF INH Q4H PRN for SHORTNESS OF BREATH, (Reported) Last Action: Held Allopurinol 100 Mg Tablet, 100 MG PO DAILY, (Reported) Last Action: Continued Apixaban 5 Mg Tablet, 5 MG PO BID, (Reported) Last Action: Reviewed Aspirin 81 Mg Tab.chew, 81 MG PO DAILY, (Reported) Last Action: Reviewed Baclofen 10 Mg Tablet, 10 MG PO BID PRN for MUSCLE SPASMS, (Reported) Last Action: Continued Cranberry Fruit 450 Mg Tablet, 450 MG PO DAILY, (Reported) Last Action: Held Escitalopram Oxalate 10 Mg Tablet, 10 MG PO DAILY, (Reported) Last Action: Converted Ezetimibe 10 Mg Tablet, 10 MG PO HS, (Reported) LAST FILLED 04-04-2020 #90/90 DAY SUPPLY Last Action: Continued Fluticasone Propionate 16 Gm [place].susp, 1 SPRAY NS BID PRN for CONGESTION, (Reported) Last Action: Continued Furosemide 40 Mg Tablet, 40 MG PO DAILY, (Reported) Last Action: Held Gabapentin 400 Mg Capsule, 400 MG PO BID, (Reported) Last Action: Continued Insulin Degludec 100 Unit/1 Ml Insuln.pen, 25 UNIT SQ DAILY, (Reported) Last Action: Converted Levothyroxine Sodium 50 Mcg Tablet, 50 MCG PO DAILY, (Reported) Last Action: Continued Metformin HCl 500 Mg Tablet, 750 MG PO BIDAC, (Reported) TAKES 1 & (500MG) TABS Last Action: Held Metformin HCl 500 Mg Tablet, 500 MG PO HS, (Reported) Last Action: Held Metoprolol Succinate 100 Mg Tab.er.24h, 100 MG PO BID, (Reported) Last Action: Held Nitrofurantoin Monohyd/M-Cryst 100 Mg Capsule, 100 MG PO BID, (Reported) FILLED 08-14-2020 #14/7 DAY SUPPLY Last Action: Continued [place]-3S/Dha/Epa/Fish Oil 1 Each Capsule.dr, 1 EACH PO DAILY, (Reported) Last Action: Held Pantoprazole Sodium 40 Mg Tablet.dr, 40 MG PO DAILY, (Reported) Last Action: Continued Sacubitril/Valsartan 1 Each Tablet, 1 TAB PO BID, (Reported) LAST FILLED 06-13-2020 #60/30 DAY SUPPLY Last Action: Held Patient Home Medication List Home Medication List Reviewed: Yes Physical Exam-Cardiology Physical Exam Vital Signs/I&O 08/15/20 08/15/20 08/15/20 08/15/20 07:00 07:10 08:00 11:14 Temp 36.9 37.8 Pulse 114 112 90 Resp 20 20 B/P (MAP) 137/72 (93) 125/67 (86) Pulse Ox 98 96 94 O2 Delivery Room Air Room Air Room Air 08/15/20 08/15/20 08/15/20 08/15/20 12:15 13:00 15:01 16:00 Temp 37.1 Pulse 101 104 Resp 20 B/P (MAP) 146/75 (98) Pulse Ox 97 95 O2 Delivery Room Air Room Air Room Air 08/15/20 00:00 Intake Total 1000 ml Balance 1000 ml Capillary Refill : Less Than 3 Seconds Constitutional: AAO x 3, well-developed, well-nourished HEENT: PERRL, EOMI Neck: carotid pulses are 2 + bilaterally, with good upstrokes Respiratory: No accessory muscle use; other (good bilateral air entry) Cardiovascular: regular rate-rhythm, S1 and S2, systolic murmur (soft SABRINA at card base) Gastrointestinal: No tender; soft; No guarding, No rebound; audible bowel sounds Extremities: No clubbing, No cyanosis, No significant edema Neurologic/Psychiatric: oriented x 3, other (moves all limbs equally) Skin: warm/dry; No cyanosis, No diaphoresis; rash on exposed areas, ulcerations on exposed areas Data Review Labs Laboratory Tests 08/14/20 22:33: White Blood Count 16.3H, Red Blood Count 4.23, Hemoglobin 12.1, Hematocrit 38, Mean Corpuscular Volume 89, Mean Corpuscular Hemoglobin 29, Mean Corpuscular Hemoglobin Concent 32, Red Cell Distribution Width 14.2, Platelet Count 318, Mean Platelet Volume 10.2, Immature Granulocyte % (Auto) 1, Neutrophils (%) (Auto) 94H, Lymphocytes (%) (Auto) 3L, Monocytes (%) (Auto) 2, Eosinophils (%) (Auto) 0, Basophils (%) (Auto) 0, Neutrophils # (Auto) 15.3H, Lymphocytes # (Auto) 0.5L, Monocytes # (Auto) 0.4, Eosinophils # (Auto) 0.0, Basophils # (Aut o) 0.0, Immature Granulocyte # (Auto) 0.1, Neutrophils % (Manual) 89, Lymphocytes % (Manual) 5, Band Neutrophils 6, Toxic Granulation 1+, Sodium Level 137, Potassium Level 4.4, Chloride Level 99, Carbon Dioxide Level 24, Anion Gap 14, Blood Urea Nitrogen 24H, Creatinine 1.10, Estimat Glomerular Filtration Rate 48, BUN/Creatinine Ratio 22, Glucose Level 259H, Calcium Level 9.5, Corrected Calcium , Magnesium Level 1.9, Total Bilirubin 0.4, Aspartate Amino Transf (AST/SGOT) 15, Alanine Aminotransferase (ALT/SGPT) 7, Alkaline Phosphatase 64, Total Creatine Kinase 52, Creatine Kinase MB 2.2, Myoglobin 34.0, Troponin I < 0.028, B-Type Natriuretic Peptide 432.4H, Total Protein 7.3, Albumin 4.6H, Amylase Level 35, Lipase 23, TSH Citrus Testing 1.41 08/14/20 22:50: Prothrombin Time 12.5, INR Comment 0.9, Activated Partial Thromboplast Time 29, Urine Color YELLOW, Urine Clarity CLEAR, Urine pH 6.0, Urine Specific [place] 1.010L, Urine Protein NEGATIVE, Urine Glucose (UA) 3+H, Urine Ketones NEGATIVE, Urine Nitrite NEGATIVE, Urine Bilirubin NEGATIVE, Urine Urobilinogen 0.2, Urine Leukocyte Esterase NEGATIVE, Urine RBC (Auto) NEGATIVE, Urine RBC , Urine WBC , Urine Crystals , Urine Bacteria , Urine Casts , Urine Mucus , Urine Culture Indicated NO 08/15/20 05:28: Glucometer 188H 08/15/20 08:22: White Blood Count 18.5H, Red Blood Count 3.51L, Hemoglobin 10.0L, Hematocrit 31L , Mean Corpuscular Volume 88, Mean Corpuscular Hemoglobin 29, Mean Corpuscular Hemoglobin Concent 33, Red Cell Distribution Width 14.3, Platelet Count 256, Mean Platelet Volume 9.9, Immature Granulocyte % (Auto) 1, Neutrophils (%) (Auto) 94H, Lymphocytes (%) (Auto) 2L, Monocytes (%) (Auto) 2, Eosinophils (%) (Auto) 1, Basophils (%) (Auto) 0, Neutrophils # (Auto) 17.4H, Lymphocytes # (Auto) 0.4L, Monocytes # (Auto) 0.3, Eosinophils # (Auto) 0.2, Basophils # (Auto) 0.1, Immature Granulocyte # (Auto) 0.1, Sodium Level 138, Potassium Level 4.1, Chloride Level 105, Carbon Dioxide Level 21, Anion Gap 12, Blood Urea Nitrogen 15, Creatinine 0.83, Estimat Glomerular Filtration Rate > 60, BUN/Creatinine Ratio 18, Glucose Level 134H, Calcium Level 8.4L, Corrected C alcium 8.6, Total Bilirubin 0.5, Aspartate Amino Transf (AST/SGOT) 14, Alanine Aminotransferase (ALT/SGPT) 7, Alkaline Phosphatase 48, Total Protein 5.6L, Albumin 3.7 08/15/20 10:35: Glucometer 143H 08/15/20 15:05: Glucometer 147H Laboratory Tests 08/14/20 22:33 08/15/20 08:22 A/P-Cardiology Assessment/Admission Diagnosis Gen malaise and weakness and poor balance of undetermined etiology Leucocytosis of undetermined etiology Severe treated with TAVR - Echo of 01/11/20 (Dr Chandra): LVEF 50-55%, mod MAC, mild to mod MR, critical (area 04 sq cm, quinonez grad 50 mmHg), PASP 40 mmHg - S/P TAVR on 06-27-[address] Weaver at [facility] Chest discomfort in July 2019, no recurrence, likely noncardiac (based on card cath of 07/25/19) Chronic diastolic and systolic CHF (ac episode on 02/20/19) - clinically compensated PAF, first documented on tele strips at [facility] in early 2016. Currently in NSR H/o ischemic cm. LVEF on 02/18/17 was 35% CAD. - S/p prox LAD stenting by Dr Obrien at [facility] on cath of 02/20/17: Promus 2.5x24. - MPI of 05/02/19: anteroapical infarction w/ mild ischemia; LVEF 49% - Last cath on 07/25/19 patent stent in the LAD and [employer] of D1, mod disease in other cors, LVEF 60%, at least mod with [id number] gradient of 40 mmHg H/o dizziness and vertigo, improved after reduction of anti-htn and Invokana treatment in early Apr 2015. MRI head on 05/10/15 (Dr Mariano) did not show lesions other than possibility of chronic microvascular disease DM II Hyperlipidemia, but has intolerance to statins (severe joint pains) Hypothyroidism, treated with thyroid replacement therapy. TSH normal (2.19) on 07/07/17 Bilateral leg and foot discomfort which has been diagnosed as neuropathy. Normal bilat EDDY in June 2014 Mild bilat carotid arterial disease on carotid u/s of Oct 2018 Abn ECG. ECG of 05/13/17: NSR, old ASMI Chronic mid back pain treated with back injections by Dr Guevara at [facility] H/o surgeries: S/p hysterectomy w/o oophorectomy; S/p bilateral knee replacement; H/o R rotator cuff surgery, cholecystectomy, ovarian cyst removal Discussion and Recomendations * Reduce antihypertensives as they may be contributing to some postural symptoms * Management of poor balance and leucocytosis is with Dr Duenas * Monitor labs * Discussed her CV issues with her and her daughter * Discussed her case with Dr Duenas on the phone today DEMARIO LOPEZ MD FACP FAC CCDS Aug 15, 2020 17:16
[2020-08-15] MEDS: NITROFURANTOIN 100 MG (MACROBID) CAPSULE PO SCH ×2 (17:50→20:33)
--- NOTE | 2020-08-15 17:58 | Consultation - Surgery ---
History of Present Illness History of Present Illness Patient Consulted On(summer/time) 08/15/20 17:53 Time Seen by Provider: 12:40 History of Present Illness Surgery asked to consult regarding Trauma, pt fell and hit her head on anticoagulation. HPI per Hospitalist: PT is a 79yoCF witha PMH of recent TAVR, HTN, IDDMII, CHF who presented to the ER due to falls and weakness. She had a TAVR done in June of this year and since that time has been having falls. She has fallen at least four times. She states she gets lightheaded but has never passes out. Yesterday she fell getting out of her car and walking in to [place]. She has had similar when she was walking into the bank her daughter works at. Despite this both happening when she was getting up and walking she denies any association with position changes. She also had nause and vomiting yesterday prompting her to seek evaluation in the ER. She was seen by Kristen Ramos NP at Dr Ramos's office and was diagnosed with a UTI and started on macrobid. She states this is her 4th UTI this year. She also called Dr Owens's office yesterday about this issues and her amlodipine was stopped. When I saw pt this afternoon she stated that she has felt "weird" ever since she had heart surgery. Relates that she has fallen 4 times in the past month; she gets light headed and dizzy. Pt fell around noon yesterday and then didn't go to the ER until about 10pm. She reports having a headache, but states it is not getting worse and has had something similar prior to the fall. Allergies and Home Medications Allergies Coded Allergies: canagliflozin (Verified Allergy, Severe, LIGHT HEADED/HEADACHES/UTI/FELT LIKE SHE WOULD PASS OUT, 02/19/19) liraglutide (Verified Allergy, Severe, RAPID HEART RATE/HEADACHE/DIZZINESS, 02/19/19) Nepckxp-Hgr-Bnw Reductase Inhibitor (Verified Adverse Reaction, Severe, MUSCLE PAIN, 02/19/19) Home Medications Acetaminophen 500 Mg Tablet, 500-1,000 MG PO Q4H PRN for PAIN-MILD, (Reported) Last Action: Held Acetaminophen/Diphenhydramine 1 Each Tablet, 2 TAB PO HS, (Reported) Last Action: Held Albuterol Sulfate 18 Gm Hfa.aer.ad, 1-2 PUFF INH Q4H PRN for SHORTNESS OF BREATH, (Reported) Last Action: Held Allopurinol 100 Mg Tablet, 100 MG PO DAILY, (Reported) Last Action: Continued Apixaban 5 Mg Tablet, 5 MG PO BID, (Reported) Last Action: Reviewed Aspirin 81 Mg Tab.chew, 81 MG PO DAILY, (Reported) Last Action: Reviewed Baclofen 10 Mg Tablet, 10 MG PO BID PRN for MUSCLE SPASMS, (Reported) Last Action: Continued Cranberry Fruit 450 Mg Tablet, 450 MG PO DAILY, (Reported) Last Action: Held Escitalopram Oxalate 10 Mg Tablet, 10 MG PO DAILY, (Reported) Last Action: Converted Ezetimibe 10 Mg Tablet, 10 MG PO HS, (Reported) LAST FILLED 04-04-2020 #90/90 DAY SUPPLY Last Action: Continued Fluticasone Propionate 16 Gm [place].susp, 1 SPRAY NS BID PRN for CONGESTION, (Reported) Last Action: Continued Furosemide 40 Mg Tablet, 40 MG PO DAILY, (Reported) Last Action: Held Gabapentin 400 Mg Capsule, 400 MG PO BID, (Reported) Last Action: Continued Insulin Degludec 100 Unit/1 Ml Insuln.pen, 25 UNIT SQ DAILY, (Reported) Last Action: Converted Levothyroxine Sodium 50 Mcg Tablet, 50 MCG PO DAILY, (Reported) Last Action: Continued Metformin HCl 500 Mg Tablet, 750 MG PO BIDAC, (Reported) TAKES 1 & (500MG) TABS Last Action: Held Metformin HCl 500 Mg Tablet, 500 MG PO HS, (Reported) Last Action: Held Metoprolol Succinate 100 Mg Tab.er.24h, 100 MG PO BID, (Reported) Last Action: Held Nitrofurantoin Monohyd/M-Cryst 100 Mg Capsule, 100 MG PO BID, (Reported) FILLED 08-14-2020 #14/7 DAY SUPPLY Last Action: Continued [place]-3S/Dha/Epa/Fish Oil 1 Each Capsule.dr, 1 EACH PO DAILY, (Reported) Last Action: Held Pantoprazole Sodium 40 Mg Tablet.dr, 40 MG PO DAILY, (Reported) Last Action: Continued Sacubitril/Valsartan 1 Each Tablet, 1 TAB PO BID, (Reported) LAST FILLED 06-13-2020 #60/30 DAY SUPPLY Last Action: Held Patient Home Medication List Home Medication List Reviewed: Yes Past Shaqikn-Cqodbf-Szcyat Hx Patient Social History Number of Drinks Today: HH Smoking Status: Never a Smoker 2nd Hand Smoke Exposure: No Recent Hopitalizations: No Alcohol Use?: No Have you traveled recently?: No Immunizations Up To Date Tetanus Booster (TDap): Unknown PED Vaccines UTD: No Date of Pneumonia Vaccine: Feb 14, 2017 Date of Influenza Vaccine: Dec 14, 2019 Seasonal Allergies Seasonal Allergies: Yes Surgeries History of Surgeries: Yes (BILAT TKR;BILAT CARPAL TUNNEL;R ROTATOR CUFF;VALVE REPLACEMENT;OVARIAN CYST) Surgeries: Bladder Surgery, Cardiac, Coronary Stent, Gallbladder, Hysterectomy, Joint Replacement, Oophorectomy, Orthopedic, Tonsillectomy, Valve Replacement Respiratory History of Respiratory Disorde: No Cardiovascular History of Cardiac Disorders: Yes (aortic stenosis;carotid stenosis;cardiac stent;VALVE REPL 06/27/20;RBBB;CHF) Cardiac Disorders: Atrial Fibrillation, Cardiomyopathy, Coronary Artery Disease, High Cholesterol, Hypertension, Peripheral Vascular, Valvular Heart Disease Neurological History of Neurological Disord: Yes Neurological Disorders: Neuropathy Reproductive System : No 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: Hysterectomy, Menopausal Genitourinary History of Genitourinary Disor: Yes (NO DIALYSIS) Genitourinary Disorders: Renal Failure, UTI-Chronic Gastrointestinal History of Gastrointestinal Di: Yes Gastrointestinal Disorders: Gastroesophageal Reflux, Hiatal Hernia, Gall Bladder Disease Musculoskeletal History of Musculoskeletal Dis: Yes Musculoskeletal Disorders: Osteoporosis, Arthritis Endocrine History of Endocrine Disorders: Yes Endocrine Disorders: Diabetes, Insulin dep, Hypothyroidsim HEENT History of HEENT Disorders: No (GLASSES) Loss of Vision: Denies Hearing Impairment: Denies Cancer History of Cancer: No Psychosocial History of Psychiatric Problem: Yes Behavioral Health Disorders: Anxiety Integumentary History of Skin or Integumenta: No Blood Transfusions History of Blood Disorders: No Family Medical History Significant Family History: Heart Disease, Diabetes, Hypertension Family Medial History: Cardiovascular disease Congenital heart disease 19 FATHER 19 MOTHER G8 BROTHER G8 BROTHER Diabetes mellitus 19 FATHER G8 BROTHER G8 BROTHER Hypertension Myocardial infarction 19 FATHER Review of Systems-General Constitutional: dizziness, malaise, weakness EENTM: blurred vision; No mouth swelling, No epistaxis, No throat pain, No throat swelling Respiratory: No cough, No dyspnea on exertion, No hemoptysis, No short of breath Cardiovascular: No chest pain; Hx of Intervention Gastrointestinal: No abdominal pain; loss of appetite; No melena; nausea, vomiting Genitourinary: No discharge; dysuria, frequency; No hematuria Musculoskeletal: joint pain, joint swelling, muscle stiffness, muscle cramps Skin: No change in color, No change in hair/nails Psychiatric/Neurological: Anxiety; Denies Depressed; Headache; Denies Seizure; Weakness Other Pt denies hx of abnormal bleeding or bruising. Physical Exam-General Problems Physical Exam Vital Signs Vital Signs - First Documented 08/14/20 08/15/20 22:41 01:59 Temp 37.1 Pulse 98 Resp 18 B/P (MAP) 168/91 (116) Pulse Ox 98 O2 Delivery Room Air Capillary Refill : Less Than 3 Seconds General Appearance: WD/WN, no apparent distress Eyes: Bilateral Eye PERRL, Bilateral Eye EOMI HEENT: pharynx normal; No scleral icterus (R), No scleral icterus (L) Neck: non-tender, supple Respiratory: lungs clear, normal breath sounds, no respiratory distress, no accessory muscle use Cardiovascular: regular rate, rhythm, systolic murmur Gastrointestinal: non tender, soft, no organomegaly Back: no CVA tenderness, no vertebral tenderness Extremities: no pedal edema, no calf tenderness, normal capillary refill Neurologic/Psychiatric: shellfish weigher II-XII nml as tested, alert, normal mood/affect, oriented x 3 Skin: normal color, warm/dry Lymphatic: no adenopathy (neck, axilla or groin) Data Review Labs Laboratory Tests 08/14/20 22:33: White Blood Count 16.3H, Red Blood Count 4.23, Hemoglobin 12.1, Hematocrit 38, Mean Corpuscular Volume 89, Mean Corpuscular Hemoglobin 29, Mean Corpuscular Hemoglobin Concent 32, Red Cell Distribution Width 14.2, Platelet Count 318, Mean Platelet Volume 10.2, Immature Granulocyte % (Auto) 1, Neutrophils (%) (Auto) 94H, Lymphocytes (%) (Auto) 3L, Monocytes (%) (Auto) 2, Eosinophils (%) (Auto) 0, Basophils (%) (Auto) 0, Neutrophils # (Auto) 15.3H, Lymphocytes # (Auto) 0.5L, Monocytes # (Auto) 0.4, Eosinophils # (Auto) 0.0, Basophils # (Auto) 0.0, Immature Granulocyte # (Auto) 0.1, Neutrophils % (Manual) 89, Lymphocytes % (Manual) 5, Band Neutrophils 6, Toxic Granulation 1+, Sodium Level 137, Potassium Level 4.4, Chloride Level 99, Carbon Dioxide Level 24, Anion Gap 14, Blood Urea Nitrogen 24H, Creatinine 1.10, Estimat Glomerular Filtration Rate 48, BUN/Creatinine Ratio 22, Glucose Level 259H, Calcium Level 9.5, Corrected Calcium , Magnesium Level 1.9, Total Bilirubin 0.4, Aspartate Amino Transf (AST/SGOT) 15, Alanine Aminotransferase (ALT/SGPT) 7, Alkaline Phosphatase 64, Total Creatine Kinase 52, Creatine Kinase MB 2.2, Myoglobin 34.0, Troponin I < 0.028, B-Type Natriuretic Peptide 432.4H, Total Protein 7.3, Albumin 4.6H, Amylase Level 35, Lipase 23, TSH [place] Testing 1.41 08/14/20 22:50: Prothrombin Time 12.5, INR Comment 0.9, Activated Partial Thromboplast Time 29, Urine Color YELLOW, Urine Clarity CLEAR, Urine pH 6.0, Urine Specific [place] 1.010L, Urine Protein NEGATIVE, Urine Glucose (UA) 3+H, Urine Ketones NEGATIVE, Urine Nitrite NEGATIVE, Urine Bilirubin NEGATIVE, Urine Urobilinogen 0.2, Urine Leukocyte Esterase NEGATIVE, Urine RBC (Auto) NEGATIVE, Urine RBC , Urine WBC , Urine Crystals , Urine Bacteria , Urine Casts , Urine Mucus , Urine Culture Indicated NO 08/15/20 05:28: Glucometer 188H 08/15/20 08:22: White Blood Count 18.5H, Red Blood Count 3.51L, Hemoglobin 10.0L, Hematocrit 31L , Mean Corpuscular Volume 88, Mean Corpuscular Hemoglobin 29, Mean Corpuscular Hemoglobin Concent 33, Red Cell Distribution Width 14.3, Platelet Count 256, Mean Platelet Volume 9.9, Immature Granulocyte % (Auto) 1, Neutrophils (%) (Auto) 94H, Lymphocytes (%) (Auto) 2L, Monocytes (%) (Auto) 2, Eosinophils (%) (Auto) 1, Basophils (%) (Auto) 0, Neutrophils # (Auto) 17.4H, Lymphocytes # (Auto) 0.4L, Monocytes # (Auto) 0.3, Eosinophils # (Auto) 0.2, Basophils # (Auto) 0.1, Immature Granulocyte # (Auto) 0.1, Sodium Level 138, Potassium Level 4.1, Chloride Level 105, Carbon Dioxide Level 21, Anion Gap 12, Blood Urea Nitrogen 15, Creatinine 0.83, Estimat Glomerular Filtration Rate > 60, BUN/Creatinine Ratio 18, Glucose Level 134H, Calcium Level 8.4L, Corrected Calcium 8.6, Total Bilirubin 0.5, Aspartate Amino Transf (AST/SGOT) 14, Alanine Aminotransferase (ALT/SGPT) 7, Alkaline Phosphatase 48, Total Protein 5.6L, Albumin 3.7 08/15/20 10:35: Glucometer 143H 08/15/20 15:05: Glucometer 147H Radiology Date of Exam:08/14/20 CT HEAD/FACE/CERVICAL WO PROCEDURE: CT head, face, and cervical spine without contrast. TECHNIQUE: Multiple contiguous axial images were obtained through the head, neck, and facial bones without the use of intravenous contrast. Sagittal and coronal reformations through the cervical spine and facial bones were also performed. Auto Exposure Controls were utilized during the CT exam to meet ALARA standards for radiation dose reduction. INDICATION: Dizzy, nausea, vomiting, falls, trauma. CORRELATION STUDY: CT head 03/23/2015 FINDINGS: CT HEAD: Generalized atrophic changes with prominence of ventricles and sulci. Scattered areas of decreased attenuation likely reflect small vessel ischemic disease. Prior lacunar infarct of the right basal ganglia versus prominent CSF space. No intracranial hemorrhage. No midline shift or mass effect. No hyperdense intracranial vascular sign. There is mild to moderate intracranial vascular calcification. Calcification of the basal ganglia. Bony calvarium is intact. CT MAXILLOFACIAL: Moderate metallic artifact from dental methodist. There is no evidence for an acute displaced maxillofacial fracture deformity. No paranasal sinus fluid collection. Orbital castillo including floors intact. Zygomatic arch is maintained. Mandible intact. There is some degenerative change of the temporomandibular joints. CT CERVICAL SPINE: Cervical spine alignment overall relatively anatomic. Mild trace degenerative retrolisthesis C4 on C5. Vertebral body heights are fairly well-maintained. There is no acute fracture. Hypertrophic facet arthropathy is present. Various degrees of fusion across the facet joints. Odontoid intact. Significant multiple areas of disc space narrowing. Most pronounced at C4-C5, C5-C6 levels. Paraspinous soft tissues unremarkable. Lung apices are clear. IMPRESSION: CT HEAD: 1. Negative for acute traumatic intracranial abnormality. CT MAXILLOFACIAL: 1. Negative for acute displaced maxillofacial fracture. CT CERVICAL SPINE: 1. Negative for acute fracture or traumatic subluxation. Rather pronounced multilevel cervical spondylosis. Initial report was provided by Fernanda. Dictated by: Dictated on workstation # [id number] Dict: 08/15/20 0755 Trans: 08/15/20 1202 EDDY [id number] Interpreted by: CARLOS KIMBROUGH DO Electronically signed by: CARLOS KIMBROUGH DO 08/15/20 1202 Assessment/Plan Assessment/Plan Assessment/Plan Trauma - Fall and struck head on Anticoagulation Dizziness Recent UTI Pt did not lose consciousness and CT of head does not show any bleed. She is neurologically intact today with no mental status changes. She does not need a repeat CT. Trauma surgery does not need to follow, thank you for the consult. JENN CASTANO DO Aug 15, 2020 17:58
[2020-08-15] MEDS: SACUBITRIL/VALSARTAN 24/26 MG (ENTRESTO) TABLET PO SCH (20:33)
[2020-08-15] MEDS: APIXABAN 5 MG (ELIQUIS) TABLET PO SCH (20:34)
[2020-08-15] MEDS ORDERED: RX-NITROFURANTOIN 100 MG (MACROBID) CAP PPK#2 PO SCH (21:00)
[2020-08-15] MEDS ORDERED: eZETimibe 10 MG (ZETIA) TABLET PO SCH (21:00)
[2020-08-15] MEDS: GABAPENTIN 400 MG (NEURONTIN) CAP PO SCH (21:11)
[2020-08-15] MEDS ORDERED: MELATONIN 3 MG TABLET PO SCH (21:15)
[2020-08-16 03:46] LABS: HEMATOCRIT 35 % (35-52); MEAN CORPUSCULAR HEMOGLOBIN 28 pg (25-34); MEAN CORPUSCULAR HGB CONC 32 g/dL (32-36); MEAN CORPUSCULAR VOLUME 88 fL (80-99); MEAN PLATELET VOLUME 10.5 fL (9.0-12.2); PLATELET COUNT 263 10^3/uL (130-400); WHITE BLOOD COUNT 15.4 10^3/uL (4.3-11.0)
[2020-08-16 03:59] LABS: CHLORIDE 103 MMOL/L (98-107); SODIUM 138 MMOL/L (135-145)
[2020-08-16 04:01] LABS: GLUCOSE 171 MG/DL (70-105)
[2020-08-16 04:03] LABS: CARBON DIOXIDE 17 MMOL/L (21-32)
[2020-08-16 04:05] LABS: CREATININE SERUM 0.82 MG/DL (0.60-1.30); GFR ESTIMATED > 60
[2020-08-16 04:06] LABS: BUN/CREATININE RATIO 15
[2020-08-16] MEDS: inSUlin ASPART (NovoLOG) 1 UNIT/0.01 ML (CHARGE PER UNIT) SC SCH ×2 (06:03→11:15)
[2020-08-16] MEDS ORDERED: LEVOTHYROXINE 50 MCG (LEVOTHROID) TAB PO SCH (06:30)
[2020-08-16] MEDS ORDERED: ASPIRIN 81 MG CHEW (CHILDREN'S ASA) ONE (07:27)
[2020-08-16] MEDS ORDERED: PANTOPRAZOLE 40 MG (PROTONIX) TAB PO ONE (07:27)
--- NOTE | 2020-08-16 07:43 | Discharge Summary ---
Diagnosis/Chief Complaint Date of Admission Aug 15, 2020 at 01:05 Date of Discharge Admission Diagnosis Falls Primary Care RichardJanes DO Discharge Diagnosis (1) Generalized weakness Status: Acute (2) IDDM (insulin dependent diabetes mellitus) Status: Acute (3) Mild concussion Status: Acute (4) Urinary tract infection Status: Acute (5) PAF (paroxysmal atrial fibrillation) Discharge Summary Procedures/Consulations Dr Owens- Cardiology Discharge Physical Exam Allergies: Coded Allergies: canagliflozin (Verified Allergy, Severe, LIGHT HEADED/HEADACHES/UTI/FELT LIKE SHE WOULD PASS OUT, 02/19/19) liraglutide (Verified Allergy, Severe, RAPID HEART RATE/HEADACHE/DIZZINES S, 02/19/19) Yqmhedm-Gln-Jjy Reductase Inhibitor (Verified Adverse Reaction, Severe, MUSCLE PAIN, 02/19/19) Vitals & I&Os Vital Signs Date Time Temp Pulse Resp B/P (MAP) Pulse Ox O2 Delivery O2 Flow Rate FiO2 08/16/20 08:00 36.8 116 18 130/77 (94) 97 Room Air General Appearance: No Apparent Distress, WD/WN Respiratory: Lungs Clear, No Respiratory Distress Cardiovascular: Regular Rate, Rhythm, No Murmur Neurologic/Psychiatric: Alert, Oriented x3 Hospital Course Pt was admitted due to generalized weakness and near syncope. Symptoms were thought to be due to postural hypotension and her amlodipine and metoprolol were discontinued but her Entresto resumed. She tolerated this well and her BP remained normal. She worked with PT and did very well and was able to be discharged home in stable and improved condition. Home health was arranged to assist with med set up and continued therapy. She is to follow up with Dr Owens and Dr Ramos to follow up this hospital stay. Labs (last 24 hrs) Laboratory Tests 08/15/20 15:05: Glucometer 147H 08/15/20 20:38: Glucometer 184H 08/16/20 03:05: White Blood Count 15.4H, Red Blood Count 3.93, Hemoglobin 11.0L, Hematocrit 35, Mean Corpuscular Volume 88, Mean Corpuscular Hemoglobin 28, Mean Corpuscular Hemoglobin Concent 32, Red Cell Distribution Width 14.3, Platelet Count 263, Mean Platelet Volume 10.5, Sodium Level 138, Potassium Level 4.0, Chloride Level 103, Carbon Dioxide Level 17L, Anion Gap 18H, Blood Urea Nitrogen 12, Creatinine 0.82, Estimat Glomerular Filtration Rate > 60, BUN/Creatinine Ratio 15, Glucose Level 171H, Calcium Level 9.0 Patient resulted labs reviewed. Pending Labs Imaging: Reviewed Imaging Report Discussion & Recommendations Discharge Planning: >30 minutes discharge planning Discharge Home Medications: Active Scripts Active Reported Tresiba Flextouch U-100 (Insulin Degludec) 100 Unit/1 Ml Insuln.pen 25 Unit SQ DAILY Furosemide 40 Mg Tablet 40 Mg PO DAILY Metformin HCl 500 Mg Tablet 500 Mg PO HS Metformin HCl 500 Mg Tablet 750 Mg PO BIDAC TAKES 1 & (500MG) TABS Ventolin Hfa (Albuterol Sulfate) 18 Gm Hfa.aer.ad 1-2 Puff INH Q4H PRN Nitrofurantoin [place]-Mcr 100 mg (Nitrofurantoin Monohyd/M-Cryst) 100 Mg Capsule 100 Mg PO BID FILLED 08-14-2020 #14/7 DAY SUPPLY Gabapentin 400 Mg Capsule 400 Mg PO BID Baclofen 10 Mg Tablet 10 Mg PO BID PRN Levothyroxine Sodium 50 Mcg Tablet 50 Mcg PO DAILY Fish Oil EC 1,200 mg Softgel (Colon-3S/Dha/Epa/Fish Oil) 1 Each Capsule.dr 1 Each PO DAILY Cranberry (Cranberry Fruit) 450 Mg Tablet 450 Mg PO DAILY Aspirin 81 Mg Tab.chew 81 Mg PO DAILY Allopurinol 100 Mg Tablet 100 Mg PO DAILY Eliquis (Apixaban) 5 Mg Tablet 5 Mg PO BID Tylenol Extra Strength (Acetaminophen) 500 Mg Tablet 500-1,000 Mg PO Q4H PRN Escitalopram Oxalate 10 Mg Tablet 10 Mg PO DAILY Fluticasone Propionate 16 Gm [place].susp 1 Pearl NS BID PRN Entresto 24 mg-26 mg Tablet (Sacubitril/Valsartan) 1 Each Tablet 1 Tab PO BID LAST FILLED 06-13-2020 #60/30 DAY SUPPLY Ezetimibe 10 Mg Tablet 10 Mg PO HS LAST FILLED 04-04-2020 #90/90 DAY SUPPLY Pantoprazole Sodium 40 Mg Tablet.dr 40 Mg PO DAILY Instructions to patient/family Please see electronic discharge instructions given to patient. FLO EVANS MD Aug 16, 2020 07:43
--- NOTE | 2020-08-16 07:48 | D/C HH Face to Face Order ---
D/C Face to Face Orders Instructions for Patient Via [facility], Patient Instructions/FollowUp: Please continue to take your medications as written. Please follow up with your primary care doctor to follow up this hospital stay. Physician to follow Patient: Dr Ramos Discharge Diet for Home: Cardiac Diet Patient Data-Allergies,Ht & Wt Patient Allergies: Coded Allergies: canagliflozin (Verified Allergy, Severe, LIGHT HEADED/HEADACHES/UTI/FELT LIKE SHE WOULD PASS OUT, 02/19/19) liraglutide (Verified Allergy, Severe, RAPID HEART RATE/HEADACHE/DIZZINESS, 02/19/19) Anxgsmp-Kam-Bqn Reductase Inhibitor (Verified Adverse Reaction, Severe, MUSCLE PAIN, 02/19/19) Height (Feet): 5 Height (Inches): 3.00 Weight (Pounds): 144 Weight (Ounces): 0.0 Home Health Need/Face to Face Date of Face to Face: Aug 16, 2020 Clinical Findings: Generalized weakness and fatigue, Instability I have seen Pt [id number]: Yes Discharged To: Home Diagnosis/Conditions: CHF, HTN, Aortic Valve Replacement, UTI Patient is Homebound due to: Linda fall risk due to instabilty Homebound Status Due to the above stated illness, injury or surgical procedure (medical condition or diagnosis) and associated clinical findings, the patient is homebound because of his/her inability to leave home except with aid of a supportive device and/or person AND leaving the home requires a considerable and taxing effort or is medically contraindicated. Pt req the following assistanc: Aid of another person, Walker Home Health Nursing Orders Home Health Services Order: Nursing Services, Physical Therapy-Evaluate & Treat Med set up Home Health Infusion Therapy Line Start Date: Aug 14, 2020 Therapy Orders Therapy Orders: Physical Therapy, PT to assess for OT Therapy Specific Orders: Eval assistive deivces, Teach enviro modifications/safety, Gait training, Increase strength/endurance [facility] certify that this patient is under my care and that I, a nurse practitioner or a physician; a anesthesiology physician assistant working with me, had a face to face encounter that - meets the physician face to face encounter requirements with this patient as dated. FLO EVANS MD Aug 16, 2020 07:48
[2020-08-16] MEDS: GABAPENTIN 400 MG (NEURONTIN) CAP PO SCH (08:16)
[2020-08-16] MEDS: SACUBITRIL/VALSARTAN 24/26 MG (ENTRESTO) TABLET PO SCH (08:16)
[2020-08-16] MEDS: APIXABAN 5 MG (ELIQUIS) TABLET PO SCH (08:16)
--- NOTE | 2020-08-16 08:37 | Progress Note - Cardiology ---
Cardiology SOAP Progress Note Objective: I&O/Vital Signs 08/15/20 08/15/20 08/16/20 08/16/20 22:00 23:00 00:00 01:00 Pulse 101 112 Resp 16 B/P (MAP) 138/74 (95) Pulse Ox 98 O2 Delivery Room Air Room Air Room Air 08/16/20 08/16/20 08/16/20 02:48 04:00 07:00 Temp 36.9 Pulse 118 111 Resp 18 B/P (MAP) 126/72 (90) Pulse Ox 96 O2 Delivery Room Air Room Air 08/16/20 00:00 Intake Total 235 ml Output Total 1450 ml Balance -1215 ml Weight (Pounds): 144 Weight (Ounces): 0.0 Weight (Calculated Kilograms): [id number] Constitutional: AAO x 3, well-developed, well-nourished Respiratory: No accessory muscle use; other (good bilateral air entry) Cardiovascular: regular rate-rhythm, S1 and S2, systolic murmur (soft SABRINA at card base) Gastrointestional: No tender; soft; No guarding, No rebound; audible bowel sounds Extremities: No clubbing, No cyanosis, No significant edema Neurologic/Psychiatric: oriented x 3, other (moves all limbs equally) Skin: warm/dry; No cyanosis, No diaphoresis; rash on exposed areas, ulcerations on exposed areas Results/Procedures: Labs Laboratory Tests 08/15/20 10:35: Glucometer 143H 08/15/20 15:05: Glucometer 147H 08/15/20 20:38: Glucometer 184H 08/16/20 03:05: White Blood Count 15.4H, Red Blood Count 3.93, Hemoglobin 11.0L, Hematocrit 35, Mean Corpuscular Volume 88, Mean Corpuscular Hemoglobin 28, Mean Corpuscular Hemoglobin Concent 32, Red Cell Distribution Width 14.3, Platelet Count 263, Mean Platelet Volume 10.5, Sodium Level 138, Potassium Level 4.0, Chloride Level 103, Carbon Dioxide Level 17L, Anion Gap 18H, Blood Urea Nitrogen 12, Creatinine 0.82, Estimat Glomerular Filtration Rate > 60, BUN/Creatinine Ratio 15, Glucose Level 171H, Calcium Level 9.0 Laboratory Tests 08/14/20 22:33 08/15/20 08:22 08/16/20 03:05 A/P: Assessment: Gen malaise and weakness and poor balance of undetermined etiology Leucocytosis of undetermined etiology Severe treated with TAVR - Echo of 01/11/20 (Dr Chandra): LVEF 50-55%, mod MAC, mild to mod MR, critical (area 04 sq cm, quinonez grad 50 mmHg), PASP 40 mmHg - S/P TAVR on 06-27-[address] Weaver at [facility] Chest discomfort in July 2019, no recurrence, likely noncardiac (based on card cath of 07/25/19) Chronic diastolic and systolic CHF (ac episode on 02/20/19) - clinically compensated PAF, first documented on tele strips at [facility] in early 2016. Currently in NSR H/o ischemic cm. LVEF on 02/18/17 was 35% CAD. - S/p prox LAD stenting by Dr Obrien at [facility] on cath of 02/20/17: Promus 2.5x24. 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 MRI head on 05/10/15 (Dr Mariano) did not show lesions other than possibility of chronic microvascular disease DM II Hyperlipidemia, but has intolerance to statins (severe joint pains) Hypothyroidism, treated with thyroid replacement therapy. TSH normal (2.19) on 07/07/17 Bilateral leg and foot discomfort which has been diagnosed as neuropathy. Normal bilat EDDY in June 2014 Mild bilat carotid arterial disease on carotid u/s of Oct 2018 Abn ECG. ECG of 05/13/17: NSR, old ASMI Chronic mid back pain treated with back injections by Dr Guevara at [facility] H/o surgeries: S/p hysterectomy w/o oophorectomy; S/p bilateral knee replacement; H/o R rotator cuff surgery, cholecystectomy, ovarian cyst removal Plan: * BP improved following reduction of antihypertensives as they may be contributing to some postural symptoms * Management of poor balance and leucocytosis is with Dr Duenas * Monitor labs * Plan is for d/c home today * Continue current medication regimen * F/U in our office in a week VINEET DASILVA Aug 16, 2020 08:37
[2020-08-16] MEDS ORDERED: ASPIRIN 81 MG CHEW (CHILDREN'S ASA) PO SCH (09:00)
[2020-08-16] MEDS ORDERED: ALLOPURINOL 100 MG (ZYLOPRIM) TAB PO SCH (09:00)
[2020-08-16] MEDS ORDERED: PANTOPRAZOLE 40 MG (PROTONIX) TAB PO SCH (09:00)
[2020-08-16] MEDS ORDERED: NON-FORMULARY MEDICATION 1 EA EA (Escitalopram Oxalate 10 MG) PO SCH (09:00)
[2020-08-16] MEDS ORDERED: NON-FORMULARY MEDICATION 1 EA EA (Insulin Degludec (Tresiba Flextouch U-100) 25 UNIT) SQ SCH (09:00)
[2020-08-16] MEDS: 1/2 NS W/KCL 20 MEQ/L 1,000 ML IV SCH (10:18)
--- NOTE | 2020-08-16 11:42 | Occ Therapy Progress Note ---
Therapy Progress Note Pt laying in bed, states she plans to discharge today. OT encouraged pt to participate in OT tx with focus on ADLS or UE strengthening. Pt pleasantly declined at this time, stating she would prefer to save her energy to go home. OT educated her on purpose and benefit of OT, she verbalized understanding but continued to decline tx. OT will attempt again next available date if pt still admitted. 1, visit 1107 LIVIER BALBUENA OT Aug 16, 2020 11:42
--- NOTE | 2020-08-16 12:02 | Physical Therapy Daily Note ---
PT Daily Note-Current Subjective Patient agrees to PT. Mental Status Patient Orientation: Normal For Age Attachments: [place] Catheter Transfers SCALE: Activities may be completed with or without assistive devices. 0-Iwsmzfdnwh-vllstab completes the activity by him/herself with no assistance from a helper. 5-Set-up or Clean-up Assistance-helper sets up or cleans up; patient completes activity. [place] assists only prior to or following the activity. 4-Supervision or Touching Assistance-helper provides verbal cues and/or touching/steadying and/or contact guard assistance as patient completes activity. Assistance may be provided throughout the activity or intermittently. 3-Partial/Moderate Assistance-helper does LESS THAN HALF the effort. [place] lifts, holds or supports trunk or limbs, but provides less than half the effort. 2-Substantial/Maximal Assistance-helper does MORE THAN HALF the effort. [place] lifts or holds trunk or limbs and provides more than half the effort. 9-Dbziaxoaw-hpampt does ALL the effort. Patient does none of the effort to complete the activity. Or, the assistance of 2 or more helpers is required for the patient to complete the activity. If activity was not attempted, code reason: 7-Patient Refused. 9-Not Applicable-not attempted and the patient did not perform the activity before the current illness, exacerbation or injury. 10-Not Attempted due to Environmental Limitations-(lack of equipment, weather restraints, etc.). 88-Not Attempted due to Medical Conditions or Safety Concerns. Sit to Lying (QC): 6 Lying to Sitting/Side of Bed(Q: 6 Sit to Stand (QC): 6 Gait Training Does the Patient Walk?: Yes Distance: 300' Walk 10 feet (QC): 6 Walk 50 ft with 2 Turns(QC): 6 Walk 150 ft (QC): 6 Gait Assistive Device: FWW slow, steady Assessment Patient tolerated treatment well and returned to bed with needs met. Plan dismissal today to home. PT Nursing Home Goals Nursing Home Goals PT Field Evidence Technician Goals Time Frame: Aug 24, 2020 Roll Left & Right (QC): 6 Sit to Lying (QC): 6 Lying-Sitting on Side/Bed(QC): 6 Sit to Stand (QC): 6 Chair/Ckt-rr-Bovop Xfer(QC): 6 Toilet Transfer (QC): 6 Does the Patient Walk: Yes Walk 10 feet (QC): 6 Walk 50ft with 2 Turns (QC): 6 Walk 150 ft (QC): 6 PT Plan Treatment/Plan Treatment Plan: Discontinue PT Treatment Plan: Bed Mobility, Education, Functional Activity Monique, Functional Strength, Gait, Safety, Therapeutic Exercise, Transfers Treatment Duration: Aug 24, 2020 Frequency: 6 times per week Estimated Hrs Per Day: .25 hour per day Patient and/or Family Agrees t: Yes Time/GCodes Time In: 1040 Time Out: 1050 Total Billed Treatment Time: 10 Total Billed Treatment 1 visit FA 10 min NAVIN SANTILLAN PT Aug 16, 2020 12:01
--- NOTE | 2020-08-16 15:12 | Progress Note - Cardiology ---
Cardiology SOAP Progress Note Subjective: Feels better today No cp or palp or syncope Shortness of breath and malaise are better No n/v/d Objective: I&O/Vital Signs 08/16/20 08/16/20 08/16/20 08/16/20 04:00 07:00 08:00 08:00 Temp 36.8 Pulse 111 116 Resp 18 B/P (MAP) 130/77 (94) Pulse Ox 97 O2 Delivery Room Air Room Air Room Air 08/16/20 00:00 Intake Total 235 ml Output Total 1450 ml Balance -1215 ml Weight (Pounds): 144 Weight (Ounces): 0.0 Weight (Calculated Kilograms): 65.087187 Constitutional: AAO x 3, well-developed, well-nourished Respiratory: No accessory muscle use; other (good bilateral air entry) Cardiovascular: regular rate-rhythm, S1 and S2, systolic murmur (soft SABRINA at card base) Gastrointestional: No tender; soft; No guarding, No rebound; audible bowel sounds Extremities: No clubbing, No cyanosis, No significant edema Neurologic/Psychiatric: oriented x 3, other (moves all limbs equally) Skin: warm/dry; No cyanosis, No diaphoresis; rash on exposed areas, ulcerations on exposed areas Results/Procedures: Labs Laboratory Tests 08/15/20 20:38: Glucometer 184H 08/16/20 03:05: White Blood Count 15.4H, Red Blood Count 3.93, Hemoglobin 11.0L, Hematocrit 35, Mean Corpuscular Volume 88, Mean Corpuscular Hemoglobin 28, Mean Corpuscular Hemoglobin Concent 32, Red Cell Distribution Width 14.3, Platelet Count 263, Mean Platelet Volume 10.5, Sodium Level 138, Potassium Level 4.0, Chloride Level 103, Carbon Dioxide Level 17L, Anion Gap 18H, Blood Urea Nitrogen 12, Creatinine 0.82, Estimat Glomerular Filtration Rate > 60, BUN/Creatinine Ratio 15, Glucose Level 171H, Calcium Level 9.0 Laboratory Tests 08/14/20 22:33 08/15/20 08:22 08/16/20 03:05 A/P: Assessment: Gen malaise and weakness and poor balance of undetermined etiology, managed by Dr Duenas Leucocytosis of undetermined etiology, managed by Dr Yulissa Severe treated with TAVR - Echo of 01/11/20 (Dr Chandra): LVEF 50-55%, mod MAC, mild to mod MR, critical (area 04 sq cm, quinonez grad 50 mmHg), PASP 40 mmHg - S/P TAVR on 06-27-[address] Weaver at [facility] Chest discomfort in July 2019, no recurrence, likely noncardiac (based on card cath of 07/25/19) Chronic diastolic and systolic CHF (ac episode on 02/20/19) - clinically compensated PAF, first documented on tele strips at [facility] in early 2016. Currently in NSR H/o ischemic cm. LVEF on 02/18/17 was 35% CAD. - S/p prox LAD stenting by Dr Obrien at [facility] on cath of 02/20/17: Promus 2.5x24. 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 MRI head on 05/10/15 (Dr Mariano) did not show lesions other than possibility of chronic microvascular disease DM II Hyperlipidemia, but has intolerance to statins (severe joint pains) Hypothyroidism, treated with thyroid replacement therapy. TSH normal (2.19) on 07/07/17 Bilateral leg and foot discomfort which has been diagnosed as neuropathy. Normal bilat EDDY in June 2014 Mild bilat carotid arterial disease on carotid u/s of Oct 2018 Abn ECG. ECG of 05/13/17: NSR, old ASMI Chronic mid back pain treated with back injections by Dr Guevara at [facility] H/o surgeries: S/p hysterectomy w/o oophorectomy; S/p bilateral knee replacement; H/o R rotator cuff surgery, cholecystectomy, ovarian cyst removal Plan: * BP improved following reduction of antihypertensives as they may be contributing to some postural symptoms * Management of poor balance and leucocytosis is with Dr Duenas * Monitor labs * Continue current medication regimen * F/U in our office in a week after discharge DEMARIO LOPEZ MD FACP FACC CCDS Aug 16, 2020 15:12
== END 2020-08-16 11:50 | disposition home or self-care (01) ==
LOC: EDUNIT# 21:33 → ER 21:36 → CSD 08-15 01:05
PROVIDERS: ADMIT Internal Medicine; ATTEND Internal Medicine
DX: R53.1 Weakness (principal); E11.40 Type 2 diabetes mellitus with diabetic neuropathy, unspecified; I48.0 Paroxysmal atrial fibrillation; S09.90XA Unspecified injury of head, initial encounter; S00.81XA Abrasion of other part of head, initial encounter; N39.0 Urinary tract infection, site not specified; I42.9 Cardiomyopathy, unspecified; I25.10 Atherosclerotic heart disease of native coronary artery without angina pectoris; I35.0 Nonrheumatic aortic (valve) stenosis; I11.0 Hypertensive heart disease with heart failure; I50.9 Heart failure, unspecified; E78.00 Pure hypercholesterolemia, unspecified; E78.5 Hyperlipidemia, unspecified; K21.9 Gastro-esophageal reflux disease without esophagitis; G89.29 Other chronic pain; M54.9 Dorsalgia, unspecified; M19.90 Unspecified osteoarthritis, unspecified site; M81.0 Age-related osteoporosis without current pathological fracture; H57.89 Other specified disorders of eye and adnexa; E03.9 Hypothyroidism, unspecified; F41.9 Anxiety disorder, unspecified; Z79.01 Long term (current) use of anticoagulants; Z79.82 Long term (current) use of aspirin; Z79.890 Hormone replacement therapy; Z79.4 Long term (current) use of insulin
CPT/HCPCS: 70450; 70486; 71045; 72125; 72128; 72131; 80048; 80053 ×2; 81000; 82150; 82550; 82553; 82947; 83690; 83735; 83874; 83880; 84443; 84484; 85007; 85025; 85027 ×2; 85610; 85730; 93005; 93041; 97162; 97166; 97530; 99284; G0378; 36415; 90715

== ENCOUNTER → 2020-08-22 | Outpatient (CLI) | payer MEDICARE ==
[~2020-08-22] MED LIST changes: +ALBU18HF2 INH; +BACL10TA PO; +GABA-490 PO; +INSU100I32 SQ; +NITR100C10 PO
[2020-08-22 10:07] LABS: ALBUMIN 4.2 GM/DL (3.2-4.5); BILIRUBIN,TOTAL 0.4 MG/DL (0.1-1.0); CALCIUM 9.5 MG/DL (8.5-10.1); CREATININE SERUM 0.95 MG/DL (0.60-1.30); POTASSIUM 4.5 MMOL/L (3.6-5.0); TOTAL PROTEIN 7.3 GM/DL (6.4-8.2)
--- NOTE | 2020-08-22 10:25 | Diagnostic Imaging Report ---
EXAMINATION: PA and lateral chest at 9:55 a.m. INDICATION: Productive cough. The heart size is within normal limits and stable when compared to 08/14/2020. The valvular prosthesis noted on the prior study is again evident and no different. The lungs seem generally clear. There is no sign of failure, pneumonia or pleural effusion. The mediastinum is not widened. The osseous structures are intact. IMPRESSION: There is no evidence for active disease. Dictated by: Dictated on workstation # [id number]
[2020-08-23 09:15] LABS: BILIRUBIN,URINE NEGATIVE (NEGATIVE); CLARITY,URINE CLEAR; COLOR,URINE YELLOW; GLUCOSE, URINE (UA) NEGATIVE (NEGATIVE); KETONES,URINE NEGATIVE (NEGATIVE); LEUKOCYTE ESTERASE ,URINE NEGATIVE (NEGATIVE); NITRITE,URINE NEGATIVE (NEGATIVE); PROTEIN,URINE NEGATIVE (NEGATIVE)
[2020-08-23 09:22] LABS: BACTERIA,URINE TRACE /HPF; SQUAMOUS EPITHELIAL CELL,UR 0-2 /HPF
== END ==
LOC: RAD 09:14
PROVIDERS: ATTEND Nurse Practitioner Family
DX: R05 Cough (principal); D72.828 Other elevated white blood cell count; N30.00 Acute cystitis without hematuria
CPT/HCPCS: 36415; 71046; 80053; 85652

== ENCOUNTER → 2021-01-10 | Outpatient (CLI) | payer MEDICARE | LOC: CARD 12:00 | PROVIDERS: ATTEND Family Medicine | DX: R55 Syncope and collapse (principal); R00.2 Palpitations ==

== ENCOUNTER → 2021-04-14 | Outpatient (RCR) | payer MEDICARE ==
[~2021-04-14] MED LIST changes: +BISO-2 PO; -BISO1TAB3 PO; -MAGN250T2 PO; +MAGN250T31 PO; +POTA-169 PO; +POTA-179 PO; -POTA20TA15 PO; -POTA20TA8 PO
== END | disposition home or self-care (01) ==
PROVIDERS: ATTEND Family Medicine
DX: R53.1 Weakness (principal); E11.9 Type 2 diabetes mellitus without complications; R29.6 Repeated falls

== ENCOUNTER → 2021-05-12 | Outpatient (RCR) | payer MEDICARE | END | disposition home or self-care (01) | PROVIDERS: ATTEND Family Medicine | DX: R53.1 Weakness (principal); M54.50 Low back pain, unspecified; R29.6 Repeated falls; E11.9 Type 2 diabetes mellitus without complications ==

== ENCOUNTER 2021-05-22 10:08 | Outpatient (RCR) | payer MEDICARE | END 2021-05-22 11:08 | disposition home or self-care (01) | PROVIDERS: ATTEND Family Medicine | DX: R53.1 Weakness (principal); M54.50 Low back pain, unspecified; E11.9 Type 2 diabetes mellitus without complications; R29.6 Repeated falls ==

== ENCOUNTER → 2021-07-04 | Outpatient (CLI) | payer MEDICARE ==
--- NOTE | 2021-07-04 15:48 | Diagnostic Imaging Report ---
INDICATION: RIGHT THIGH PAIN TECHNIQUE: Multiple real-time grayscale images were obtained over the right lower extremity in various projections, bilaterally. Additional duplex Doppler and color Doppler images were also obtained. CORRELATION STUDY: None FINDINGS: Color and grayscale sonographic images demonstrate no intraluminal defect within the visualized portion of the common femoral, superficial femoral and/or popliteal veins to suggest thrombus formation. These vessels demonstrate normal response to compression and augmentation. No soft tissue fluid collection. IMPRESSION: 1. Negative for deep venous thrombosis of the right leg. Dictated by: Dictated on workstation # [id number]
--- NOTE | 2021-07-04 15:50 | Diagnostic Imaging Report ---
TECHNIQUE: Multiple real-time grayscale images were obtained over the right lower extremity in various projections. Additional duplex Doppler and color Doppler images were also obtained. HISTORY: RIGHT THIGH PAIN COMPARISON: None FINDINGS: Right lower extremity: The major arteries of the right leg are patent to the ankle. There is detectable flow at the dorsalis pedis and posterior tibial arteries at the ankle. There is triphasic to biphasic waveforms through the popliteal artery. There is a predominantly dampened monophasic waveforms below the tibial peroneal trifurcation. There is no focal velocity changes to suggest a hemodynamically significant stenosis. IMPRESSION: 1. Patent right lower extremity arterial system. Findings suggest small vessel disease below the tibial peroneal trifurcation. Dictated by: Dictated on workstation # [id number]
== END ==
LOC: RAD 14:00
PROVIDERS: ATTEND Family Medicine
DX: I65.29 Occlusion and stenosis of unspecified carotid artery (principal); M79.651 Pain in right thigh
CPT/HCPCS: 93926

== ENCOUNTER → 2021-08-12 | Outpatient (CLI) | payer MEDICARE ==
[2021-08-12 10:35] LABS: BASOPHILS % (AUTO) 1 % (0-10); EOSINOPHILS % (AUTO) 0 % (0-10); HEMATOCRIT 35 % (35-52); LYMPHOCYTES # (AUTO) 0.9 10^3/uL (1.0-4.0); LYMPHOCYTES % (AUTO) 11 % (12-44); MEAN CORPUSCULAR HEMOGLOBIN 29 pg (25-34); MEAN CORPUSCULAR HGB CONC 32 g/dL (32-36); MEAN CORPUSCULAR VOLUME 92 fL (80-99); MEAN PLATELET VOLUME 10.1 fL (9.0-12.2); MONOCYTES # (AUTO) 0.4 10^3/uL (0.0-1.0); MONOCYTES % (AUTO) 5 % (0-12); NEUTROPHILS # (AUTO) 6.7 10^3/uL (1.8-7.8); NEUTROPHILS % (AUTO) 83 % (42-75); PLATELET COUNT 338 10^3/uL (130-400); WHITE BLOOD COUNT 8.1 10^3/uL (4.3-11.0)
[2021-08-12 10:50] LABS: ALBUMIN 4.2 GM/DL (3.2-4.5); POTASSIUM 4.7 MMOL/L (3.6-5.0)
[2021-08-12 10:52] LABS: CALCIUM 9.1 MG/DL (8.5-10.1)
[2021-08-12 10:55] LABS: BILIRUBIN,TOTAL 0.4 MG/DL (0.1-1.0)
[2021-08-12 10:55] LABS: BILIRUBIN,URINE NEGATIVE (NEGATIVE); CLARITY,URINE SL CLOUDY; COLOR,URINE YELLOW; GLUCOSE, URINE (UA) 1+ (NEGATIVE); KETONES,URINE NEGATIVE (NEGATIVE); LEUKOCYTE ESTERASE ,URINE TRACE (NEGATIVE); NITRITE,URINE POSITIVE (NEGATIVE); PROTEIN,URINE NEGATIVE (NEGATIVE)
[2021-08-12 10:56] LABS: CREATININE SERUM 1.17 MG/DL (0.60-1.30)
--- NOTE | 2021-08-12 11:04 | Diagnostic Imaging Report ---
INDICATION: Preoperative evaluation. PA and lateral views of the chest are obtained with comparison made study of 08/22/2020 Study somewhat limited due to technique, however heart size and pulmonary vascularity are within normal limits. There is no evidence of pneumothorax, consolidation or pleural fluid. There is aortic valve prosthesis. Note is made of mild compression fracture deformities in the visualized lumbar spine. IMPRESSION: No acute abnormality is seen in the chest. There are lumbar compression fracture deformities of indeterminate age and clinical correlation to possible pain in the region would be of use. If there has been recent injury or back pain, MRI may be of use. Dictated by: Dictated on workstation # [id number]
[2021-08-12 11:11] LABS: BACTERIA,URINE LARGE /HPF; RBC,URINE RARE /HPF
== END ==
LOC: CARD 10:30
PROVIDERS: ATTEND Nurse Practitioner Family
DX: Z01.810 Encounter for preprocedural cardiovascular examination (principal); M48.56XA Collapsed vertebra, not elsewhere classified, lumbar region, initial encounter for fracture; I70.293 Other atherosclerosis of native arteries of extremities, bilateral legs
CPT/HCPCS: 36415; 71046; 80053; 81000; 85025; 87077; 87088; 87186; 93005

== ENCOUNTER 2021-11-06 17:43 | Emergency (ER) | payer MEDICARE ==
[~2021-11-06] VITALS: Ht 160 cm; Wt 74.8 kg
--- NOTE | 2021-11-06 19:13 | Diagnostic Imaging Report ---
PROCEDURE: CT head and CT cervical spine without contrast. TECHNIQUE: Multiple contiguous axial images were obtained through the brain and cervical spine without the use of intravenous contrast. Sagittal and coronal reformations through the cervical spine were then performed. Auto Exposure Controls were utilized during the CT exam to meet ALARA standards for radiation dose reduction. INDICATION: 81-year-old female, status post fall, hitting back of head. Multiple recent falls. Posterior head pain and bilateral shoulder pain. CORRELATION STUDY: 08/14/2020. FINDINGS: CT HEAD: Prominent posterior scalp hematoma is noted slightly greater to left midline. Underlying bony calvarium intact. Punctate densities in the scalp could reflect calcification to perhaps a pair of foreign bodies. No gas collection. Intracranially, generalized atrophic changes with prominence of ventricles and sulci. Scattered areas of decreased attenuation likely owing to chronic small vessel ischemic disease. No appreciable midline shift or mass effect. Unchanged tiny calcification of left basal ganglia. Intracranial vascular calcification. Probable prior lacunar infarct of right basal ganglia. CT CERVICAL SPINE: Cervical spine alignment is anatomic. Vertebral body heights are maintained. Various degrees of mild/moderate cervical spondylosis is present. Most severe disc space narrowing at C4-C5 and C5-C6 levels with reactive endplate sclerosis and osteophyte formation. Posterior elements with rather pronounced hypertrophic facet arthropathy with multifocal areas of fusion across the facets. The odontoid intact. Occipital condyles maintained. Paraspinal soft tissues as well as lung apices are unremarkable. IMPRESSION: CT HEAD: 1. Prominent posterior scalp hematoma. Negative for calvarial fracture. No acute traumatic intracranial abnormality. CT CERVICAL SPINE: 1. Negative for acute fracture or traumatic subluxation. Rather extensive multilevel cervical spondylosis along with hypertrophic facet arthropathy. Dictated by: Dictated on workstation # [id number]
--- NOTE | 2021-11-06 20:12 | ED Fall/Injury ---
General Chief Complaint: Trauma-Non Activation Stated Complaint: FALL - HIT HEAD Source: patient Exam Limitations: no limitations History of Present Illness Date Seen by Provider: Nov 06, 2021 Time Seen by Provider: 19:51 Initial Comments Here with report of fall at home. Apparently she was trying to get on a ladder when she fell backwards and landed on her bottom and then hit her head on the concrete floor in the garage. No loss of consciousness but she was on the ground for about 45 minutes before she could get up. She has had bilateral knee replacements and that makes it very difficult for her to get up. This is her th fall and she is currently under work-up with Dr. Jorge and has had physical therapy for balance training and she is due to start physical therapy for strength training on November 13. Denies other injury specifically with the hips or extremities. Does have posterior head pain where there is a large hematoma. No bleeding. She is talking well and has good memory and function. Occurred: this evening (Approximately 3 hours ago) Severity: moderate Injuries/Pain Location: head, neck Context: unknown Loss of Consciousness: no loss of consciousness Associated Symptoms (Fall): No Chest Pain; Headache; No Lightheadedness, No Nausea/Vomiting; Neck Pain; No Shortness of Air, No Vision Changes Allergies and Home Medications Allergies Coded Allergies: canagliflozin (Verified Allergy, Severe, LIGHT HEADED/HEADACHES/UTI/FELT LIKE SHE WOULD PASS OUT, 02/19/19) liraglutide (Verified Allergy, Severe, RAPID HEART RATE/ HEADACHE/DIZZINESS, 02/19/19) Qlxnnls-Nku-Kjg Reductase Inhibitor (Verified Adverse Reaction, Severe, MUSCLE PAIN, 02/19/19) Patient Home Medication List Home Medication List Reviewed: Yes Acetaminophen (Tylenol Extra Strength) 500 Mg Tablet, 500-1,000 MG PO Q4H PRN for PAIN-MILD, (Reported) Entered as Reported by: CAROLE BECKETT on 12/02/17 0948 Albuterol Sulfate (Ventolin Hfa) 18 Gm Hfa.aer.ad, 1-2 PUFF INH Q4H PRN for SHORTNESS OF BREATH, (Reported) Entered as Reported by: KATHLEEN HUANG on 08/15/20 1046 Allopurinol (Allopurinol) 100 Mg Tablet, 100 MG PO DAILY, (Reported) Entered as Reported by: KATHLEEN HUANG on 02/20/19 1136 Apixaban (Eliquis) 5 Mg Tablet, 5 MG PO BID, (Reported) Entered as Reported by: AYDEN BYRD on 02/19/19 1830 Aspirin (Aspirin) 81 Mg Tab.chew, 81 MG PO DAILY, (Reported) Entered as Reported by: KATHLEEN HUANG on 02/20/19 1146 Baclofen (Baclofen) 10 Mg Tablet, 10 MG PO BID PRN for MUSCLE SPASMS, (Reported) Entered as Reported by: KATHLEEN HUANG on 08/15/20 1046 Cranberry Fruit (Cranberry) 450 Mg Tablet, 450 MG PO DAILY, (Reported) Entered as Reported by: KATHLEEN HUANG on 02/20/19 1413 Escitalopram Oxalate (Escitalopram Oxalate) 10 Mg Tablet, 10 MG PO DAILY, (Reported) Entered as Reported by: CAROLE BECKETT on 12/02/17 0927 Ezetimibe (Ezetimibe) 10 Mg Tablet, 10 MG PO HS, (Reported) Entered as Reported by: CAROLE BECKETT on 05/25/17 1008 Fluticasone Propionate (Fluticasone Propionate) 16 Gm [place].susp, 1 SPRAY NS BID PRN for CONGESTION, (Reported) Entered as Reported by: CAROLE BECKETT on 05/25/17 1018 Furosemide (Furosemide) 40 Mg Tablet, 40 MG PO DAILY, (Reported) Entered as Reported by: KATHLEEN HUANG on 08/15/20 1046 Gabapentin (Gabapentin) 400 Mg Capsule, 400 MG PO BID, (Reported) Entered as Reported by: KATHLEEN HUANG on 08/15/20 1046 Insulin Degludec (Tresiba Flextouch U-100) 100 Unit/1 Ml Insuln.pen, 25 UNIT SQ DAILY, (Reported) Entered as Reported by: KATHLEEN HUANG on 08/15/20 1150 Levothyroxine Sodium (Levothyroxine Sodium) 50 Mcg Tablet, 50 MCG PO DAILY, (Reported) Entered as Reported by: CHERIE NIXON on 07/25/19 0917 Metformin HCl (Metformin HCl) 500 Mg Tablet, 750 MG PO BIDAC, (Reported) Entered as Reported by: KATHLEEN HUANG on 08/15/20 1046 Metformin HCl (Metformin HCl) 500 Mg Tablet, 500 MG PO HS, (Reported) Entered as Reported by: KATHLEEN HUANG on 08/15/20 1046 Nitrofurantoin Monohyd/M-Cryst (Nitrofurantoin [place]-Mcr 100 mg) 100 Mg Capsule, 100 MG PO BID, (Reported) Entered as Reported by: KATHLEEN HUANG on 08/15/20 1046 [place]-3S/Dha/Epa/Fish Oil (Fish Oil EC 1,200 mg Softgel) 1 Each Capsule.dr, 1 EACH PO DAILY, (Reported) Entered as Reported by: CHERIE NIXON on 07/25/19 0917 Pantoprazole Sodium (Pantoprazole Sodium) 40 Mg Tablet.dr, 40 MG PO DAILY, (Reported) Entered as Reported by: CAROLE BECKETT on 05/25/17 1008 Sacubitril/Valsartan (Entresto 24 mg-26 mg Tablet) 1 Each Tablet, 1 TAB PO BID, (Reported) Entered as Reported by: CAROLE BECKETT on 05/25/17 1018 Review of Systems Review of Systems Constitutional: see HPI; No chills, No fever Eyes: No Symptoms Reported Ears, Nose, Mouth, Throat: no symptoms reported Respiratory: No cough, No short of breath Cardiovascular: No chest pain, No palpitations Gastrointestinal: No nausea, No vomiting Genitourinary: no symptoms reported Musculoskeletal: joint pain (Buttocks), muscle pain (Chronic to bilateral shoulders) Skin: change in color, lesions Psychiatric/Neurological: Headache; Denies Weakness Past Ldippgl-Kokymj-Ukjlta Hx Patient Social History Tobacco Use?: No Immunizations Up To Date Tetanus Booster (TDap): Unknown PED Vaccines UTD: No Seasonal Allergies Seasonal Allergies: Yes Past Medical History Surgeries: Yes (BILAT TKR;BILAT CARPAL TUNNEL;R ROTATOR CUFF;VALVE REPLACE MENT;OVARIAN CYST) Bladder Surgery, Cardiac, Coronary Stent, Gallbladder, Hysterectomy, Joint Replacement, Oophorectomy, Orthopedic, Tonsillectomy, Valve Replacement Respiratory: No Currently Using CPAP: No Currently Using BIPAP: No Cardiac: Yes (aortic stenosis;carotid stenosis;cardiac stent;VALVE REPL 06/27/20;RBBB;CHF) Atrial Fibrillation, Cardiomyopathy, Coronary Artery Disease, High Cholesterol, Hypertension, Peripheral Vascular, Valvular Heart Disease Neurological: Yes Neuropathy 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, 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 Genitourinary: Yes (NO DIALYSIS) Renal Failure, UTI-Chronic Gastrointestinal: Yes Gastroesophageal Reflux, Hiatal Hernia, Gall Bladder Disease Musculoskeletal: Yes Osteoporosis, Arthritis Endocrine: Yes Diabetes, Insulin dep, Hypothyroidsim HEENT: No (GLASSES) Loss of Vision: Denies Hearing Impairment: Denies Cancer: No Psychosocial: Yes Anxiety Integumentary: No Blood Disorders: No Family Medical History Reviewed Nursing Family Hx Cardiovascular disease Congenital heart disease 19 FATHER 19 MOTHER G8 BROTHER G8 BROTHER Diabetes mellitus 19 FATHER G8 BROTHER G8 BROTHER Hypertension Myocardial infarction 19 FATHER Heart Disease, Diabetes, Hypertension ADDITIONAL PAST SURGICAL/PROCEDURAL HISTORY: -CARDIAC CATH 07/25/[address] LOPEZ: PATENT MID VESSEL STENT TO LAD ( [address] BEATTY AT [facility]) AND CHRONIC TOTAL OCCLUSION OF FIRST DIAGONAL. REST OF CORONARY ARTERIES HAVE MODERATE DIFFUSE PLAQUE. EF 60%. MODERATE AORTIC STENOSIS Physical Exam Vital Signs Capillary Refill : Height, Weight, BMI Height: 5'3.00" Weight: 144lbs. 0.0oz. 65.208658yu; 28.90 BMI Method:Stated General Appearance: WD/WN, no apparent distress HEENT: PERRL/EOMI, pharynx normal Neck: full range of motion, supple Cardiovascular: regular rate, rhythm, no murmur Respiratory: lungs clear, normal breath sounds Gastrointestinal: non tender, soft Back: normal inspection, no CVA tenderness, no vertebral tenderness Extremities: non-tender, normal inspection Neurologic/Psychiatric: alert, oriented x 3 Skin: warm/dry, other (6 x 6 cm scalp hematoma posterior scalp) Samia Coma Score Best Eye Response: (4) Open Spontaneously Best Verbal Response: (5) Oriented Best Motor Response: (6) Obeys Commands Procedures/Interventions Date of ETT Placement: Dec 02, 2017 Time of ETT Placement: 1752 Progress/Results/Core Measures Results/Orders Lab Results Laboratory Tests Test 11/06/21 17:50 Range/Units Glucometer 458 *H 70-110 MG/DL Progress Progress Note : Progress Note Seen and evaluated. CT head neck ordered shortly after arrival. These were both negative. Patient has been doing okay throughout the visit without vomiting or mental status changes. She reports that she is currently in work-up for these falls. Does state that her blood sugar is high due to being on steroids. She is not wanting any further labs or evaluation by me at this point but wants to make sure that I try to send to Dr. Jorge which I will do. There is no head bleed and no neck fracture. Given this, patient will be safe for discharge home. Discharged home with return precautions. Patient verbalized understanding of instructions and agreement with plan. 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 TECHNIQUE: Multiple contiguous axial images were obtained through the brain and cervical spine without the use of intravenous contrast. Sagittal and coronal reformations through the cervical spine were then performed. Auto Exposure Controls were utilized during the CT exam to meet ALARA standards for radiation dose reduction. INDICATION: 81-year-old female, status post fall, hitting back of head. Multiple recent falls. Posterior head pain and bilateral shoulder pain. CORRELATION STUDY: 08/14/2020. FINDINGS: CT HEAD: Prominent posterior scalp hematoma is noted slightly greater to left midline. Underlying bony calvarium intact. Punctate densities in the scalp could reflect calcification to perhaps a pair of foreign bodies. No gas collection. Intracranially, generalized atrophic changes with prominence of ventricles and sulci. Scattered areas of decreased attenuation likely owing to chronic small vessel ischemic disease. No appreciable midline shift or mass effect. Unchanged tiny calcification of left basal ganglia. Intracranial vascular calcification. Probable prior lacunar infarct of right basal ganglia. CT CERVICAL SPINE: Cervical spine alignment is anatomic. Vertebral body heights are maintained. Various degrees of mild/moderate cervical spondylosis is present. Most severe disc space narrowing at C4-C5 and C5-C6 levels with reactive endplate sclerosis and osteophyte formation. Posterior elements with rather pronounced hypertrophic facet arthropathy with multifocal areas of fusion across the facets. The odontoid intact. Occipital condyles maintained. Paraspinal soft tissues as well as lung apices are unremarkable. IMPRESSION: CT HEAD: 1. Prominent posterior scalp hematoma. Negative for calvarial fracture. No acute traumatic intracranial abnormality. CT CERVICAL SPINE: 1. Negative for acute fracture or traumatic subluxation. Rather extensive a multilevel cervical spondylosis along with hypertrophic facet arthropathy. Dictated on workstation # [id number] Dict: 11/06/[id number] Trans: 11/06/211910 [facility] [id number] Interpreted by: CARLOS KIMBROUGH DO Electronically signed by: Departure Impression Primary Impression: Minor head injury without loss of consciousness Qualified Codes: S09.90XA - Unspecified injury of head, initial encounter Disposition: HOME, SELF-CARE Condition: Stable Departure-Patient Inst. Decision time for Depature: 20:13 Referrals: STEPHANIE JORGE DO (PCP/Family) Primary Care Physician Patient Instructions: Minor Head Injury (DC), Concussion, Adult (DC) Add. Discharge Instructions: All discharge instructions reviewed with patient and/or family. Voiced under standing. Continue home medications as previously prescribed, including your insulin. Call Dr. JORGE's office in the morning for recheck and further evaluation and to discuss your blood sugars. Return for worse pain, fever, vomiting, weakness, breathing problems, vision or balance problems or other concerns as needed. You may take Tylenol/acetaminophen 1000 mg every 6-8 hours as needed for pain. Do not exceed 8 tablets or 4000 mg in 24 hours. Use ice packs to area of concern. Return for worse pain, fever, vomiting, weakness, breathing problems or other concerns as needed. LISA LESLIE MD Nov 06, 2021 20:11
[2021-11-06 20:26] VITALS: BP 155/83
== END 2021-11-06 20:27 | disposition home or self-care (01) ==
LOC: EDUNIT# 17:43 → ER 17:44
DX: S09.90XA Unspecified injury of head, initial encounter (principal); S00.03XA Contusion of scalp, initial encounter; E11.40 Type 2 diabetes mellitus with diabetic neuropathy, unspecified; Z79.4 Long term (current) use of insulin; W11.XXXA Fall on and from ladder, initial encounter; Y92.009 Unspecified place in unspecified non-institutional (private) residence as the place of occurrence of the external cause
CPT/HCPCS: 70450; 72125; 82947

== ENCOUNTER → 2021-11-06 | Outpatient (CLI) | payer MEDICARE ==
--- NOTE | 2021-11-06 11:07 | Diagnostic Imaging Report ---
PROCEDURE: CT abdomen and pelvis without contrast. TECHNIQUE: Multiple contiguous axial images were obtained through the abdomen and pelvis without the use of intravenous contrast. Auto Exposure Controls were utilized during the CT exam to meet ALARA standards for radiation dose reduction. INDICATION: Abdominal pain for 2 months. Comparison is made with prior CT from 05/03/2018. The lung bases are clear. There is a small pericardial effusion. There is a large hiatal hernia. The hyperdense lesion noted on the postcontrast study in 2019 is not well-seen on this noncontrast study. The gallbladder is surgically absent. Pancreas is atrophic. Spleen is unremarkable. No adrenal mass is detected. There appears to be a nonobstructing calculus in the right kidney measuring 3 to 4 mm in size. Left kidney is unremarkable. There is no ureteral calculi or hydronephrosis. Aorta is calcified but nonaneurysmal. The bowel loops are of normal caliber. There is colonic diverticulosis. There is some laxity in the midline anterior abdominal wall at the umbilicus with some small bowel protruding into the laxity but no strangulation or bowel obstruction is identified. There is no free fluid or fluid collection identified. The bladder is unremarkable. Uterus appears to be absent or atrophic. IMPRESSION: 1. Moderate-sized hiatal hernia. 2. Uncomplicated diverticulosis. 3. No acute feature in the abdomen or pelvis is identified. Dictated by: Dictated on workstation # [id number]
== END ==
LOC: RAD 10:02
PROVIDERS: ATTEND Family Medicine
DX: K44.9 Diaphragmatic hernia without obstruction or gangrene (principal); K57.30 Diverticulosis of large intestine without perforation or abscess without bleeding
CPT/HCPCS: 74176

== ENCOUNTER 2021-12-11 09:43 | Outpatient (RCR) | payer MEDICARE | END 2021-12-12 | disposition home or self-care (01) | PROVIDERS: ATTEND Family Medicine | DX: M54.12 Radiculopathy, cervical region (principal); M54.16 Radiculopathy, lumbar region; I10 Essential (primary) hypertension; E11.9 Type 2 diabetes mellitus without complications ==

== ENCOUNTER 2022-02-04 09:49 | Emergency (ER) | payer MEDICARE ==
[~2022-02-04] VITALS: Ht 160 cm; Wt 73.0 kg
--- NOTE | 2022-02-04 11:39 | ED General ---
General Chief Complaint: General Problems/Pain Stated Complaint: FALL | KNEES INJ Nursing Triage Note: PT TO TRIAGE BY WC WITH COMPLAINT OF BILATERAL KNEE PAIN. STATES SHE FELL WEDNESDAY IN HER KITCHEN, WAS SQUATTING DOWN TO PUSH ITEMS IN CABINET AND FELL FORWARD ON TO KNEES. PT STATES SHE HAS CHRONIC SHOULDER, BACK, AND KNEE PAIN. STATES SHE IS HAVING INCREASING PAIN AND WEAKNESS WITH DIFFICULTY TO GET OUT OF CHAIRS. Source of Information: Patient Exam Limitations: No Limitations History of Present Illness Date Seen by Provider: Feb 04, 2022 Time Seen by Provider: 11:06 Initial Comments This is a well-appearing 88-year-old female who presented to the ER with complaints of bilateral knee pain after a fall on Wednesday (he 3 days ago). States that she has had 15 falls this year thus far due to generalized weakness. Denies any syncope, dizziness, feeling lightheaded, states that she just "falls". She is experiencing increased pain in both of her knees, unable to get up independently, called her primary care provider office and was recommended to go to the ER for imaging. States that she has also had physical therapy 2 times this year and is no longer a candidate for physical therapy due to limited range of motion of her bilateral upper extremities. She is currently being treated for a UTI and is on antibiotics daily. She has been taking ibuprofen for the pain with no relief. Last dose 2 days ago. Denies any injury to head or neck with this previous fall. Allergies and Home Medications Allergies Coded Allergies: canagliflozin (Verified Allergy, Severe, LIGHT HEADED/HEADACHES/UTI/FELT LIKE SHE WOULD PASS OUT, 02/19/19) liraglutide (Verified Allergy, Severe, RAPID HEART RATE/HEADACHE/DIZZINESS, 02/19/19) Zxrwgxv-Ltf-Qhn Reductase Inhibitor (Verified Adverse Reaction, Severe, MUSCLE PAIN, 02/19/19) Patient Home Medication List Acetaminophen (Tylenol Extra Strength) 500 Mg Tablet, 500-1,000 MG PO Q4H PRN for PAIN-MILD, (Reported) Entered as Reported by: CAROLE BECKETT on 12/02/17 0948 Albuterol Sulfate (Ventolin Hfa) 18 Gm Hfa.aer.ad, 1-2 PUFF INH Q4H PRN for SHORTNESS OF BREATH, (Reported) Entered as Reported by: KATHLEEN HUANG on 08/15/20 1046 Allopurinol (Allopurinol) 100 Mg Tablet, 100 MG PO DAILY, (Reported) Entered as Reported by: KATHLEEN HUANG on 02/20/19 1136 Apixaban (Eliquis) 5 Mg Tablet, 5 MG PO BID, (Reported) Entered as Reported by: AYDEN BYRD on 02/19/19 1830 Aspirin (Aspirin) 81 Mg Tab.chew, 81 MG PO DAILY, (Reported) Entered as Reported by: KATHLEEN HUANG on 02/20/19 1146 Baclofen (Baclofen) 10 Mg Tablet, 10 MG PO BID PRN for MUSCLE SPASMS, (Reported) Entered as Reported by: KATHLEEN HUANG on 08/15/20 1046 Cranberry Fruit (Cranberry) 450 Mg Tablet, 450 MG PO DAILY, (Reported) Entered as Reported by: KATHLEEN HUANG on 02/20/19 1413 Escitalopram Oxalate (Escitalopram Oxalate) 10 Mg Tablet, 10 MG PO DAILY, (Reported) Entered as Reported by: CAROLE BECKETT on 12/02/17 0927 Ezetimibe (Ezetimibe) 10 Mg Tablet, 10 MG PO HS, (Reported) Entered as Reported by: CAROLE BECKETT on 05/25/17 1008 Fluticasone Propionate (Fluticasone Propionate) 16 Gm [place].susp, 1 SPRAY NS BID PRN for CONGESTION, (Reported) Entered as Reported by: CAROLE BECKETT on 05/25/17 1018 Furosemide (Furosemide) 40 Mg Tablet, 40 MG PO DAILY, (Reported) Entered as Reported by: KATHLEEN HUANG on 08/15/20 1046 Gabapentin (Gabapentin) 400 Mg Capsule, 400 MG PO BID, (Reported) Entered as Reported by: KATHLEEN HUANG on 08/15/20 1046 Hydrocodone/Acetaminophen (Hydrocodone-Acetamin 5-325 mg) 5 Mg-325 Mg Tablet, 1 TAB PO Q6H PRN for PAIN-MODERATE (5-7) Prescribed by: PEGGY LUCERO on 02/04/22 1222 Insulin Degludec (Tresiba Flextouch U-100) 100 Unit/1 Ml Insuln.pen, 25 UNIT SQ DAILY, (Reported) Entered as Reported by: KATHLEEN HUANG on 08/15/20 1150 Levothyroxine Sodium (Levothyroxine Sodium) 50 Mcg Tablet, 50 MCG PO DAILY, (Reported) Entered as Reported by: CHERIE NIXON on 07/25/19 0917 Metformin HCl (Metformin HCl) 500 Mg Tablet, 750 MG PO BIDAC, (Reported) Entered as Reported by: KATHLEEN HUANG on 08/15/20 1046 Metformin HCl (Metformin HCl) 500 Mg Tablet, 500 MG PO HS, (Reported) Entered as Reported by: KATHLEEN HUANG on 08/15/20 1046 Nitrofurantoin Monohyd/M-Cryst (Nitrofurantoin [place]-Mcr 100 mg) 100 Mg Capsule, 100 MG PO BID, (Reported) Entered as Reported by: KATHLEEN HUANG on 08/15/20 1046 [place]-3S/Dha/Epa/Fish Oil (Fish Oil EC 1,200 mg Softgel) 1 Each Capsule.dr, 1 EACH PO DAILY, (Reported) Entered as Reported by: CHERIE NIXON on 07/25/1917 Pantoprazole Sodium (Pantoprazole Sodium) 40 Mg Tablet.dr, 40 MG PO DAILY, (Reported) Entered as Reported by: CAROLE BECKETT on 05/25/17 1008 Sacubitril/Valsartan (Entresto 24 mg-26 mg Tablet) 1 Each Tablet, 1 TAB PO BID, (Reported) Entered as Reported by: CAROLE BECKETT on 05/25/17 1018 Past Hcdmviv-Ekrzhh-[place]ov[place] Hx Patient Social History Tobacco Use?: No Use of E-Cig and/or Vaping dev: No Substance use?: No Alcohol Use?: No Pt feels they are or have been: No Immunizations Up To Date Tetanus Booster (TDap): Unknown PED Vaccines UTD: No First/Initial COVID19 Vaccinat: SPRING 2020 Second COVID19 Vaccination [place]: SPRING 2020 Third COVID19 Vaccination Date: 2020 Seasonal Allergies Seasonal Allergies: Yes Past Medical History Surgeries: Yes (BILAT TKR;BILAT CARPAL TUNNEL;R ROTATOR CUFF;VALVE REPLACEMENT;OVARIAN CYST) Bladder Surgery, Cardiac, Coronary Stent, Gallbladder, Hysterectomy, Joint Replacement, Oophorectomy, Orthopedic, Tonsillectomy, Valve Replacement Respiratory: No Currently Using CPAP: No Currently Using BIPAP: No Cardiac: Yes (aortic stenosis;carotid stenosis;cardiac stent;VALVE REPL 06/27/20;RBBB;CHF) Atrial Fibrillation, Cardiomyopathy, Coronary Artery Disease, High Cholesterol, Hypertension, Peripheral Vascular, Valvular Heart Disease Neurological: Yes 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, 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 Genitourinary: Yes (NO DIALYSIS) Renal Failure, UTI-Chronic Gastrointestinal: Yes Gastroesophageal Reflux, Hiatal Hernia, Gall Bladder Disease Musculoskeletal: Yes Osteoporosis, Arthritis Endocrine: Yes Diabetes, Insulin dep, Hypothyroidsim HEENT: No (GLASSES) Loss of Vision: Denies Hearing Impairment: Denies Cancer: No Psychosocial: Yes Anxiety Integumentary: No Blood Disorders: No Family Medical History Cardiovascular disease Congenital heart disease 19 FATHER 19 MOTHER G8 BROTHER G8 BROTHER Diabetes mellitus 19 FATHER G8 BROTHER G8 BROTHER Hypertension Myocardial infarction 19 FATHER Heart Disease, Diabetes, Hypertension ADDITIONAL PAST SURGICAL/PROCEDURAL HISTORY: -CARDIAC CATH 07/25/[address] LOPEZ: PATENT MID VESSEL STENT TO LAD ( [address] BEATTY AT [place]) AND CHRONIC TOTAL OCCLUSION OF FIRST DIAGONAL. REST OF CORONARY ARTERIES HAVE MODERATE DIFFUSE PLAQUE. EF 60%. MODERATE AORTIC STENOSIS Physical Exam Vital Signs Vital Signs - First Documented 02/04/22 10:21 Pulse 95 Resp 16 B/P (MAP) 121/69 (86) Pulse Ox 97 O2 Delivery Room Air Capillary Refill : Less Than 3 Seconds Height, Weight, BMI Height: 5'3.00" Weight: 144lbs. 0.0oz. 65.232966dy; 28.00 BMI Method:Stated Procedures/Interventions Date of ETT Placement: Dec 02, 2017 Time of ETT Placement: 1753 Progress/Results/Core Measures Suspected Sepsis SIRS Temperature: Pulse: 95 Respiratory Rate: 16 Blood Pressure 121 /69 Mean: 86 Results/Orders My Orders Orders - PEGGY LUCERO APRN Hydrocodone/Apap 5/325 Tablet (Lortab 5 (02/04/22 11:45) Knee, 3 Views, Bilateral (02/04/22 11:37) Medications Given in ED Current Medications Medications Dose Ordered Sig/Jose Enrique Route Start Time Stop Time Status Last Admin Dose Admin Acetaminophen/ Hydrocodone Bitart 1 ea ONCE ONCE PO 02/04/22 11:45 02/04/22 11:46 DC 02/04/22 12:01 1 EA Vital Signs/I&O 02/04/22 10:21 Pulse 95 Resp 16 B/P (MAP) 121/69 (86) Pulse Ox 97 O2 Delivery Room Air Capillary Refill : Less Than 3 Seconds Blood Pressure Mean: 86 Progress Note : Progress Note Patient examined and in no acute distress. Will obtain imaging of bilateral knees, given Lortab 5/325 mg p.o. and will reevaluate pain. Departure Impression Primary Impression: Fall on same level Additional Impression: Bilateral knee effusions Disposition: HOME, SELF-CARE Condition: Improved Departure-Patient Inst. Decision time for Depature: 12:19 Referrals: STEPHANIE MARTIN DO (PCP/Family) Primary Care Physician Patient Instructions: Knee Pain ED Add. Discharge Instructions: Plan: 1. Discharge home. 2. Follow up with your Dr. Next week if symptoms persist. 3. Keep affected site elevated as much as you are able to reduce swelling and pain. 4. Ice 20 minutes at a time followed by 20 minutes of heat. 2-3x per day. 5. Wear clayton bandage as directed. Re-wrap at least twice daily. 6. Use walker to help with ambulation. 7. Wiggle toes often to prevent swelling. 8. If extremity becomes numb, cold, more painful, blanched or discolored or exc essively swollen, contact your physician or return to the ER. 9. Take Hydrocodone 5/325mg by mouth every 6 hours as needed for pain. 10. Return to ER for any new, concerning, or worsening symptoms. All discharge instructions reviewed with patient and/or family. Voiced understanding. Scripts Hydrocodone/Acetaminophen (Hydrocodone-Acetamin 5-325 mg) 5 Mg-325 Mg Tablet 1 TAB PO Q6H PRN for PAIN-MODERATE (5-7), #14 TAB 0 Refills Prov: PEGGY LUCERO DOPING SUPERVISOR 02/04/22 PEGGY LUCERO DOPING SUPERVISOR Feb 04, 2022 11:39
[2022-02-04] MEDS ORDERED: HYDROcodone/APAP 5 MG/325 MG (LORTAB) TAB PO ONE (11:45)
[2022-02-04] MEDS ORDERED: ACHD5005 PO (12:22)
--- NOTE | 2022-02-04 12:35 | Diagnostic Imaging Report ---
INDICATION: Knee pain. Bilateral 3 view knee showed total knee arthroplasty bilaterally. Hardware appeared intact. There are bilateral suprapatellar joint effusions. No loose body. No acute osseous pathology. IMPRESSION: Bilateral knee replacement appeared symmetric with bilateral joint effusions. No acute osseous pathology or hardware complication identified. Dictated by: Dictated on workstation # [id number]
[2022-02-04 12:51] VITALS: BP 121/69
== END 2022-02-04 12:51 | disposition home or self-care (01) ==
LOC: EDUNIT# 09:49 → ER 09:52
DX: M25.462 Effusion, left knee (principal); M25.461 Effusion, right knee; N39.0 Urinary tract infection, site not specified; E11.40 Type 2 diabetes mellitus with diabetic neuropathy, unspecified; Z79.4 Long term (current) use of insulin; W18.30XA Fall on same level, unspecified, initial encounter

== ENCOUNTER 2022-05-10 12:46 | Emergency (ER) | payer MEDICARE ==
[~2022-05-10] VITALS: Ht 160 cm; Wt 74.0 kg
[2022-05-10] MEDS ORDERED: fentaNYL INJ 100 MCG/2 ML AMP IVP STA (13:00)
[2022-05-10 13:20] LABS: BILIRUBIN,URINE NEGATIVE (NEGATIVE); CLARITY,URINE CLOUDY; COLOR,URINE YELLOW; GLUCOSE, URINE (UA) NEGATIVE (NEGATIVE); KETONES,URINE NEGATIVE (NEGATIVE); LEUKOCYTE ESTERASE ,URINE TRACE (NEGATIVE); NITRITE,URINE NEGATIVE (NEGATIVE); PROTEIN,URINE NEGATIVE (NEGATIVE)
[2022-05-10 13:27] LABS: BASOPHILS # (AUTO) 0.1 10^3/uL (0.0-0.1); BASOPHILS % (AUTO) 1 % (0-10); EOSINOPHILS % (AUTO) 0 % (0-10); HEMATOCRIT 35 % (35-52); LYMPHOCYTES # (AUTO) 0.8 10^3/uL (1.0-4.0); LYMPHOCYTES % (AUTO) 7 % (12-44); MEAN CORPUSCULAR HEMOGLOBIN 28 pg (25-34); MEAN CORPUSCULAR HGB CONC 31 g/dL (32-36); MEAN CORPUSCULAR VOLUME 89 fL (80-99); MEAN PLATELET VOLUME 10.8 fL (9.0-12.2); MONOCYTES # (AUTO) 0.8 10^3/uL (0.0-1.0); MONOCYTES % (AUTO) 6 % (0-12); NEUTROPHILS # (AUTO) 10.6 10^3/uL (1.8-7.8); NEUTROPHILS % (AUTO) 86 % (42-75); PLATELET COUNT 470 10^3/uL (130-400); WHITE BLOOD COUNT 12.3 10^3/uL (4.3-11.0)
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
[2022-05-10 13:32] LABS: ALBUMIN 4.2 GM/DL (3.2-4.5); POTASSIUM 4.3 MMOL/L (3.6-5.0)
[2022-05-10 13:33] LABS: CALCIUM 9.4 MG/DL (8.5-10.1)
[2022-05-10 13:34] LABS: TOTAL PROTEIN 7.7 GM/DL (6.4-8.2)
[2022-05-10 13:36] LABS: BILIRUBIN,TOTAL 0.4 MG/DL (0.1-1.0)
[2022-05-10 13:38] LABS: CREATININE SERUM 0.98 MG/DL (0.60-1.30)
[2022-05-10 13:40] LABS: BACTERIA,URINE LARGE /HPF; SQUAMOUS EPITHELIAL CELL,UR RARE /HPF
[2022-05-10] MEDS ORDERED: CEPHALEXIN 250 MG (KEFLEX) CAP PO STA (14:16)
[2022-05-10] MEDS ORDERED: CEPH500C PO (14:21)
[2022-05-10 14:30] VITALS: BP 156/70
[2022-05-10 15:12] LABS: BAND NEUTROPHILS 1 %; LYMPHOCYTES % (MANUAL) 11 %; MONOCYTES % (MANUAL) 4 %; NEUTROPHILS % (MANUAL) 84 %; PLATELET ESTIMATE NORMAL; POIKILOCYTOSIS SLIGHT
== END 2022-05-10 14:37 | disposition home or self-care (01) ==
LOC: EDUNIT# 12:46 → ER 12:46
DX: E11.649 Type 2 diabetes mellitus with hypoglycemia without coma (principal); N39.0 Urinary tract infection, site not specified; M25.512 Pain in left shoulder; M25.511 Pain in right shoulder
CPT/HCPCS: 36415; 51701; 80053; 81000; 82947; 85007; 85027; 86141; 87077; 87088

== ENCOUNTER 2022-07-18 14:28 | Emergency (ER) | payer MEDICARE ==
[~2022-07-18] VITALS: Ht 160 cm; Wt 71.6 kg
[~2022-07-18 14:28] MED LIST changes: +CEPH500C PO
--- NOTE | 2022-07-18 14:49 | ED Head Injury ---
General Stated Complaint: INJ HEAD Source: patient Exam Limitations: no limitations (FARIDEH ALVES) History of Present Illness Date Seen by Provider: July 18, 2022 Time Seen by Provider: 14:46 Initial Comments Patient is a 81-year-old female history of type 2 diabetes, hypertension, coronary artery disease who presents to ED with right-sided head injury. Patient states this past Wednesday she fell at [employer]. She attempted to get up on a chair when she slipped and fell landing on her right side of her head against glass blocks. No loss of consciousness. She does take Eliquis. She has had some mild intermittent headache she did take Tylenol Extra Strength immediately after the fall. She denies of any current symptoms at this time such as headache, dizziness, visual changes, ear pain. Family noticed significant mount of bruising to the right side of head. She denies of any bleeding from the ear. She denies any neck pain, facial pain, chest pain, cough, shortness of breath, abdominal pain, dysuria. (FARIDEH ALVES) Allergies and Home Medications Allergies Coded Allergies: canagliflozin (Verified Allergy, Severe, LIGHT HEADED/HEADACHES/UTI/FELT LIKE SHE WOULD PASS OUT, 02/19/19) liraglutide (Verified Allergy, Severe, RAPID HEART RATE/HEADACHE/DIZZINESS, 02/19/19) Uubwhez-QXR-HcL Reductase Inhibitor (Verified Adverse Reaction, Severe, MUSCLE PAIN, 02/19/19) Patient Home Medication List Home Medication List Reviewed: Yes (FARIDEH ALVES) Acetaminophen (Tylenol Extra Strength) 500 Mg Tablet, 500-1,000 MG PO Q4H PRN for PAIN-MILD, (Reported) Entered as Reported by: CAROLE BECKETT on 12/02/17 0948 Albuterol Sulfate (Ventolin Hfa) 18 Gm Hfa.aer.ad, 1-2 PUFF INH Q4H PRN for SHORTNESS OF BREATH, (Reported) Entered as Reported by: KATHLEEN HUANG on 08/15/20 1046 Allopurinol (Allopurinol) 100 Mg Tablet, 100 MG PO DAILY, (Reported) Entered as Reported by: KATHLEEN HUANG on 02/20/19 1136 Apixaban (Eliquis) 5 Mg Tablet, 5 MG PO BID, (Reported) Entered as Reported by: AYDEN BYRD on 02/19/19 1830 Aspirin (Aspirin) 81 Mg Tab.chew, 81 MG PO DAILY, (Reported) Entered as Reported by: KATHLEEN HUANG on 02/20/19 1146 Baclofen (Baclofen) 10 Mg Tablet, 10 MG PO BID PRN for MUSCLE SPASMS, (Reported) Entered as Reported by: KATHLEEN HUANG on 08/15/20 1046 Cephalexin (Cephalexin) 500 Mg Capsule, 500 MG PO BID Prescribed by: LISA LESLIE on 05/10/22 1421 Cranberry Fruit (Cranberry) 450 Mg Tablet, 450 MG PO DAILY, (Reported) Entered as Reported by: KATHLEEN HUANG on 02/20/19 1413 Escitalopram Oxalate (Escitalopram Oxalate) 10 Mg Tablet, 10 MG PO DAILY, (Repo rted) Entered as Reported by: CAROLE BECKETT on 12/02/17 0927 Ezetimibe (Ezetimibe) 10 Mg Tablet, 10 MG PO HS, (Reported) Entered as Reported by: CAROLE BECKETT on 05/25/17 1008 Fluticasone Propionate (Fluticasone Propionate) 16 Gm [place].susp, 1 SPRAY NS BID PRN for CONGESTION, (Reported) Entered as Reported by: CAROLE BECKETT on 05/25/17 1018 Furosemide (Furosemide) 40 Mg Tablet, 40 MG PO DAILY, (Reported) Entered as Reported by: KATHLEEN HUANG on 08/15/20 1046 Gabapentin (Gabapentin) 400 Mg Capsule, 400 MG PO BID, (Reported) Entered as Reported by: KATHLEEN HUANG on 08/15/20 1046 Hydrocodone/Acetaminophen (Hydrocodone-Acetamin 5-325 mg) 5 Mg-325 Mg Tablet, 1 TAB PO Q6H PRN for PAIN-MODERATE (5-7) Prescribed by: PEGGY LUCERO on 02/04/22 1222 Insulin Degludec (Tresiba Flextouch U-100) 100 Unit/1 Ml Insuln.pen, 25 UNIT SQ DAILY, (Reported) Entered as Reported by: KATHLEEN HUANG on 08/15/20 1150 Levothyroxine Sodium (Levothyroxine Sodium) 50 Mcg Tablet, 50 MCG PO DAILY, (Reported) Entered as Reported by: CHERIE NIXON on 07/25/19 0917 Metformin HCl (Metformin HCl) 500 Mg Tablet, 750 MG PO BIDAC, (Reported) Entered as Reported by: KATHLEEN HUANG on 08/15/20 1046 Metformin HCl (Metformin HCl) 500 Mg Tablet, 500 MG PO HS, (Reported) Entered as Reported by: KATHLEEN HUANG on 08/15/20 1046 Nitrofurantoin Monohyd/M-Cryst (Nitrofurantoin [place]-Mcr 100 mg) 100 Mg Capsule, 100 MG PO BID, (Reported) Entered as Reported by: KATHLEEN HUANG on 08/15/20 1046 [place]-3S/Dha/Epa/Fish Oil (Fish Oil EC 1,200 mg Softgel) 1 Each Capsule.dr, 1 EACH PO DAILY, (Reported) Entered as Reported by: CHERIE NIXON on 07/25/19916 Pantoprazole Sodium (Pantoprazole Sodium) 40 Mg Tablet.dr, 40 MG PO DAILY, (Reported) Entered as Reported by: CAROLE BECKETT on 05/25/17 1008 Sacubitril/Valsartan (Entresto 24 mg-26 mg Tablet) 1 Each Tablet, 1 TAB PO BID, (Reported) Entered as Reported by: CAROLE BECKETT on 05/25/17 1018 Review of Systems Review of Systems Constitutional: No chills, No diaphoresis, No malaise Eyes: Denies Drainage, Denies Decreased Acuity, Denies Photophobia, Denies Previous Injury Ears, Nose, Mouth, Throat: denies ear pain, denies ear discharge, denies epistaxis Respiratory: No cough, No dyspnea on exertion, No short of breath Cardiovascular: No chest pain, No edema Gastrointestinal: No abdominal pain, No diarrhea, No nausea, No vomiting Genitourinary: No decreased output, No discharge Musculoskeletal: No back pain, No joint swelling, No muscle pain, No muscle stiffness Skin: change in color, other (Contusion to right sided) (FARIDEH ALVES) All Other Systems Reviewed Negative Unless Noted: Yes (FARIDEH ALVES) Past Wsxmelj-Dkswop-Pkhvoy Hx Immunizations Up To Date Tetanus Booster (TDap): Unknown PED Vaccines UTD: No First/Initial COVID19 Vaccinat: SPRING 2020 Second COVID19 Vaccination [place]: SPRING 2021 Third COVID19 Vaccination Date: 2020 (FARIDEH ALVES) Seasonal Allergies Seasonal Allergies: Yes (FARIDEH ALVES) Past Medical History Surgeries: Yes (BILAT TKR;BILAT CARPAL TUNNEL;R ROTATOR CUFF;VALVE REPLACEMENT;OVARIAN CYST) Bladder Surgery, Cardiac, Coronary Stent, Gallbladder, Hysterectomy, Joint Replacement, Oophorectomy, Orthopedic, Tonsillectomy, Valve Replacement Respiratory: No Currently Using CPAP: No Currently Using BIPAP: No Cardiac: Yes (aortic stenosis;carotid stenosis;cardiac stent;VALVE REPL 06/27/20;RBBB;CHF) Atrial Fibrillation, Cardiomyopathy, Coronary Artery Disease, High Cholesterol, Hypertension, Peripheral Vascular, Valvular Heart Disease Neurological: Yes Neuropathy 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, 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 Genitourinary: Yes (NO DIALYSIS) Renal Failure, UTI-Chronic Gastrointestinal: Yes Gastroesophageal Reflux, Hiatal Hernia, Gall Bladder Disease Musculoskeletal: Yes Osteoporosis, Arthritis Endocrine: Yes Diabetes, Insulin dep, Hypothyroidsim HEENT: No (GLASSES) Loss of Vision: Denies Hearing Impairment: Denies Cancer: No Psychosocial: Yes Anxiety Integumentary: No Blood Disorders: No (FARIDEH ALVES) Family Medical History Cardiovascular disease Congenital heart disease 19 FATHER 19 MOTHER G8 BROTHER G8 BROTHER Diabetes mellitus 19 FATHER G8 BROTHER G8 BROTHER Hypertension Myocardial infarction 19 FATHER Heart Disease, Diabetes, Hypertension ADDITIONAL PAST SURGICAL/PROCEDURAL HISTORY: -CARDIAC CATH 07/25/[address] LOPEZ: PATENT MID VESSEL STENT TO LAD ( [address] BEATTY AT [facility]) AND CHRONIC TOTAL OCCLUSION OF FIRST DIAGONAL. REST OF CORONARY ARTERIES HAVE MODERATE DIFFUSE PLAQUE. EF 60%. MODERATE AORTIC STENOSIS (FARIDEH ALVES) Physical Exam Vital Signs Vital Signs - First Documented 07/18/22 14:48 Temp 36.2 Pulse 95 Resp 16 B/P (MAP) 160/78 (105) Pulse Ox 98 (JHOAN KULKARNI MD) Vital Signs Capillary Refill : (FARIDEH ALVES) Height, Weight, BMI Height: 5'3.00" Weight: 144lbs. 0.0oz. [id number]; 28.00 BMI Method:Stated General Appearance: WD/WN, no apparent distress HEENT: PERRL/EOMI, normal ENT inspection, TMs normal, pharynx normal Cardiovascular: regular rate, rhythm, no edema, no gallop, no JVD Respiratory: chest non-tender, lungs clear, normal breath sounds, no respiratory distress, no accessory muscle use Gastrointestinal: normal bowel sounds, non tender, soft, no organomegaly Back: normal inspection, no CVA tenderness Extremities: normal range of motion, non-tender, normal inspection, no pedal edema Psychiatric: alert, oriented x 3 Crainal Nerves: normal hearing, normal speech, PERRL Coordination/Gait: normal finger to nose, normal gait Skin: other (Contusion to right side is temporal scalp, bruising to the right sided scalp, right-sided neck, right posterior) (FARIDEH ALVES) [place] Coma Score Best Eye Response: (4) Open Spontaneously Best Verbal Response: (5) Oriented Best Motor Response: (6) Obeys Commands Samia Total: 15 (FARIDEH ALVES) Procedures/Interventions Date of ETT Placement: Dec 02, 2017 Time of ETT Placement: 1752 (FARIDEH ALVES) Progress/Results/Core Measures Results/Orders Vital Signs/I&O 07/18/22 07/18/22 14:48 15:31 Temp 36.2 36.2 Pulse 95 82 Resp 16 16 B/P (MAP) 160/78 (105) 145/63 Pulse Ox 98 98 (JHOAN KULKARNI MD) Departure Communication (PCP) Patient is a 81-year-old female who presents ED with right scalp contusion. She fell Wednesday mechanical hitting the right side of her head. No loss of consciousness but on Eliquis. Only complaint since Wednesday is mild head pain. She did take Tylenol Extra Strength. Due to being on a blood thinner and significant swelling down the right side neck, CT scan of the head and cervical neck was ordered. Patient neuro exam unremarkable. No focal neural deficits. Stable vital signs. CT scan of the head and cervical neck negative for acute abnormality. She refused anything for pain. Patient with a steady gait. She has been using ice. Discussed Tylenol as needed. Continue with ice at home. Discussed with family if any worsening symptoms such as developing severe head pain, vomiting, change in mental status to return back to ED. Follow-up with your PCP in 2 to 3 days for reevaluation (FARIDEH ALVES) Impression Primary Impression: Scalp contusion Disposition: 01 HOME, SELF-CARE Condition: Stable Departure-Patient Inst. Decision time for Depature: 15:24 (FARIDEH ALVES) Referrals: STEPHANIE MARTIN DO (PCP/Family) Primary Care Physician Patient Instructions: Contusion (DC) Add. Discharge Instructions: Ice to help with swelling. May continue experiencing bruising to the right side of neck and head and secondary to gravity if any worsening symptoms return back to ED. ATTENDING PHYSICIAN NOTE: I was physically present as attending physician in the emergency department during the care of this patient, but I was not directly involved in the decision making or delivery of care for this patient. (JHOAN KULKARNI MD) FARIDEH ALVES July 18, 2022 14:49 JHOAN KULKARNI MD July 18, 2022 19:27
--- NOTE | 2022-07-18 15:20 | Diagnostic Imaging Report ---
PROCEDURE: CT head and CT cervical spine without contrast. TECHNIQUE: Multiple contiguous axial images were obtained through the brain and cervical spine without the use of intravenous contrast. Sagittal and coronal reformations through the cervical spine were then performed. Auto Exposure Controls were utilized during the CT exam to meet ALARA standards for radiation dose reduction. INDICATION: Fall. Head and neck pain. COMPARISON: 11/06/2021. FINDINGS: CT HEAD: No large acute territorial ischemia, mass, or hemorrhage. No midline shift or mass effect. The ventricles, cortical sulci, and basilar cisterns are patent and unremarkable. Scalp hematoma is seen overlying the right parietal region. The calvarium is intact. The visualized paranasal sinuses are clear. CT CERVICAL SPINE: No acute fracture or dislocation is seen in the cervical spine. No focal osseous lesion. There is straightening of the cervical spine. Vertebral body heights are well-maintained. The craniocervical junction is well-maintained. Moderate degenerative changes are seen in the cervical spine with disc osteophyte complexes and uncovertebral arthropathy. Soft tissues of the neck are unremarkable. IMPRESSION: 1. No hemorrhage or focal intra-axial mass. No CT evidence of large acute territorial ischemia. 2. No acute fracture or dislocation in the cervical spine. 3. Prominent scalp hematoma overlying the right parietal region. No associated calvarial fracture. Dictated by: Dictated on workstation # [id number]
[2022-07-18 15:31] VITALS: BP 145/63
== END 2022-07-18 15:31 | disposition home or self-care (01) ==
LOC: EDUNIT# 14:28 → ER 14:32
DX: S00.83XA Contusion of other part of head, initial encounter (principal); S10.93XA Contusion of unspecified part of neck, initial encounter; Z79.02 Long term (current) use of antithrombotics/antiplatelets; W01.198A Fall on same level from slipping, tripping and stumbling with subsequent striking against other object, initial encounter; Y92.511 Restaurant or cafe as the place of occurrence of the external cause
CPT/HCPCS: 70450; 72125

== ENCOUNTER → 2022-10-29 | Outpatient (CLI) | payer MEDICARE ==
[~2022-10-29] MED LIST changes: +HOLD METFORMIN - RECEIVED CONTRAST 20 ML VIAL IV SCH; +IOHEXOL 350 MG/ML 100 ML (OMNIPAQUE 350) VIAL IV ONE; +NS 100 ML (IVPB) BAG IV ONE; +POTA-330 PO; -POTA-51 PO
--- NOTE | 2022-10-29 16:55 | Diagnostic Imaging Report ---
EXAMINATION: CT abdomen and pelvis with and without intravenous contrast. TECHNIQUE: Precontrast acquisitions were acquired through the abdomen and pelvis. Multiple contiguous axial images were obtained through the abdomen and pelvis after the administration of intravenous contrast. All CT scans use one or more of the following dose optimizing techniques: automated exposure control, MA and/or KvP adjustment based on patient size and exam type or iterative reconstruction. HISTORY: MICROSCOPIC HEMATURIA COMPARISON: 11/06/2021. FINDINGS: Lung bases: The lung bases are clear. Solid organs: The liver is normal without focal lesion. The gallbladder is surgically absent. There is no biliary ductal dilation. There is pancreatic atrophy without ductal dilatation. Spleen is normal. Adrenal glands are normal. There is a punctate nonobstructing 0.1 cm right renal calculus. Additional likely vascular calcifications are seen within the right kidney. No obstructing renal calculus or hydronephrosis. The ureters are patent and normal in caliber. Bowel: There is a small hiatal hernia present. No bowel obstruction. There is scattered colonic diverticulosis. The appendix is normal. Peritoneum: There is no intraperitoneal free fluid or free air. No suspicious lymphadenopathy. Vasculature: Calcification of the aorta without aneurysm. Musculoskeletal: Degenerative changes of the spine with chronic L1 and L3 compression deformities. No new suspicious osseous lesion or compression fracture. Pelvis: The uterus is surgically absent. No adnexal mass. Moderate amount of intraluminal air within the urinary bladder. IMPRESSION: 1. Nonobstructing 0.1 cm right renal calculus. No hydronephrosis. 2. Unremarkable appearance of the ureters. 3. Air is seen within the urinary bladder. Recommend correlation with any history of recent instrumentation and urinalysis. Dictated by: Dictated on workstation # [id number]
== END ==
LOC: RAD 14:45
PROVIDERS: ATTEND Nurse Practitioner Family
DX: N20.0 Calculus of kidney (principal)
CPT/HCPCS: 74178